=== PATIENT | female | born 1995 | race Caucasian/White ===

== ENCOUNTER 2023-07-02 10:06 | Emergency (ER) | payer OTHER, SELFPAY ==
[2023-07-02] VITALS (33 sets, daily range): BP systolic 110–156; BP diastolic 81–104; PULSE 92–102; RESP 10–30; TEMP 35.6–36.3; O2SAT 100; BMI 19.8
--- NOTE | 2023-07-02 10:25 | ECG_ITS ---
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
[2023-07-02 10:29] LABS: Glucometer 446 mg/dL (74-106)
--- NOTE | 2023-07-02 10:30 | ED_ITS ---
HPI - General Adult General Chief complaint: Nausea/Vomiting/Diarrhea Stated complaint: HIGH BLOOD SUGAR/ CHEST PAIN Time Seen by Provider: 07/02/23 10:25 Source: patient and other Source information: EMS Mode of arrival: ambulance Limitations: no limitations History of Present Illness HPI narrative: Patient is a 28-year-old female who is presenting to the Emergency Room by EMS in most likely DKA. Patient is a type I diabetic. Last time patient was in DKA was in May. Patient is a insulin-dependent diabetic, type I. Patient PCP is Dr. Luna. Patient's been having 3 days of nausea and vomiting. Patient ran out of her insulin for no known reason. Patient has not talked her PCP yesterday or today. Patient has been having clear emesis this morning. Patient states that she is not . Patient has no chest pain or shortness of breath, no abdominal pain, patient is asking for ice chips. Patient denies any sick contacts. Patient is only speaking and one or 2 sentences at a time. . All systems are negative except as noted/marked. All systems reviewed and otherwise negative. . Nurses note and vital signs reviewed and patient is not hypoxic. General: The patient appears Moderate distress, patient looks sick, patient looks very dehydrated, probable DKA. Patient is resting uncomfortably on cart. Patient is Slightly toxic, mild lethargic, not listless Skin: Warm, dry, no pallor noted. There is no rash noted. No petechiae, purpura. Patient has multiple areas of psoriasis, chronic; no secondary signs of infection. Head: Normocephalic, atraumatic Eye: Normal conjunctiva, no drainage, EOMI. PERRL Ears, Nose, Mouth, and Throat: oral mucosa is Very dry. Nares patent. Mouth without vesicles. Poor dentition, no secondary signs of infection. Cardiovascular: Tachycardic Regular Rate and Rhythm, no murmur, gallop, rub Respiratory: Patient has increased respiratory rate with Kussmaul breathing; no accessory muscle use, lungs are clear to auscultation, no wheezing, rales or rhonchi. Back: non-tender, no CVA tenderness bilaterally to percussion. No CT LS midline pain GI: soft, no tenderness to palpation, no masses appreciated. No rebound, guarding, or rigidity noted. No flank pain bilateral, No distention Musculoskeletal: Patient has full range of motion of all of the extremities, no motor, sensory, or focal neurological deficits Neurological: A&O x3, normal speech Psychiatric: Cooperative Related Data Allergies Allergy/AdvReac Type Severity Reaction Status Date / Time Penicillins Allergy Verified 07/02/23 10:22 [facility] Social History Smoking status: Former smoker Exam Constitutional Vital Signs, click to edit/add: Last Vital Signs Temp 97.3 F L 07/02/23 14:39 Pulse 99 H 07/02/23 14:50 Resp 14 07/02/23 14:50 BP 110/83 07/02/23 14:30 Pulse Ox 100 07/02/23 12:40 O2 Del Method Room Air 07/02/23 10:12 Course Vital Signs Vital signs: Vital Signs Pulse Rate 98 H 07/02/23 10:08 Respiratory Rate 18 07/02/23 10:08 Temperature 97.3 F L 07/02/23 14:39 Pulse Rate 99 H 07/02/23 14:50 Respiratory Rate 14 07/02/23 14:50 Blood Pressure 110/83 07/02/23 14:30 Pulse Oximetry 100 07/02/23 12:40 Oxygen Delivery Method Room Air 07/02/23 10:12 Medical Decision Making MDM Narrative Medical decision making narrative: 1030 DKA protocol is are in place. Patient does have one IV, were giving Zofran and IV fluids. We'll be attempting 2nd IV. Labwork is in place. Patient is requesting ice chips and was given a few. 1130 1300 patient is sick. Patient is elderly with blood cells of 15, she is a venous gas pH of 6.9, CO2 is 17. Patient's initial blood sugar was 461. Patient's CO2 level Was 6.Initial troponin was 3532, repeat 3259. Patient had a small IV started initially, 1 L of IV fluid was established. We are able to get a 2nd IV into the patient, 2 L were started. Patient was initially given Zofran IV. Patient was asking for ice chips. Patient urinated the 1st time, she missed the hack collection on the bedside commode. Patient was given a 3rd liter of IV fluids along with potassium drip. Patient's potassium was 3.9. Patient remained on IV, O2, recorder gravity prospecting and pulse ox entire time. Patient was having Accu-Cheks done every hour. Patient was started on insulin drip at 3 units per hour. The 2nd are was increased to 3.5 units per hour. The 3rd hour the insulin was decreased back to 3 units per hour. Patient is currently remaining on a normal saline drip. Patient had a Return of nausea after the 1st dose of IV Zofran, patient was given a 2nd dose of Zofran and Compazine. 1450 patient has had 3 L of normal saline infused. Patient still has several hours of the potassium normal saline drip going. Patient will be started on a D5 half-normal saline drip for maintenance fluids to help with DKA management. Patient is going to be picked up at approximately 1600. Patient had methadone in her urine. 1500 [facility] staff only has 2 IV problems. Patient is currently on a insulin drip along with a potassium drip as well. We will check patient's blood sugar now, adjust insulin drip as needed and not start the D5 half-normal saline but will increase the insulin drip to make sure the patient's sugar does not drop too quickly. Potassium still has approximately 300 mL to infuse. Insulin drip will be Decreased to 2 units, repeat blood sugar check was 270. 1510 We are able to slowly infuse D5 half-normal saline with a regular on the IV tubing which produced the patient does not significant drop the glucose level. EMS staff can still maintain Their 2 IV drips with a very slow drip effu sparkle to gravity At approximately 60 mL per hour. Critical care time 80 minutes exclusive from separate billable procedures that were performed. The following was considered in the determination of critical care but not limited to the level of medical decision making, intensive cardiac and/or respiratory monitoring, frequent vital sign monitoring, evaluation of laboratory studies, evaluation of radiographic studies, oxygen monitoring, and constant monitoring and speaking to family at bedside Lab Data Lab results reviewed: Yes I reviewed the patient's lab results Labs: Lab Results 07/02/23 07/02/23 07/02/23 Range/Units 10:15 10:26 10:38 WBC 15.7 H (4.0-11.0) 10^3/uL RBC 5.17 (4.20-5.40) 10^6/uL Hgb 13.2 (12.0-16.0) g/dL Hct 43.7 (36.0-48.0) % MCV 84.5 (81.0-99.0) fL MCH 25.5 L (26.7-34.0) pg MCHC 30.2 (29.9-35.2) g/dL RDW 13.5 (11.0-15.0) % Plt Count 344 (150-450) 10^3/uL MPV 9.8 (9.5-13.5) fL Neut % (Auto) 93.0 H (43.0-75.0) % Lymph % (Auto) 4.0 L (20.5-60.0) % [place] % (Auto) 1.6 L (1.7-12.0) % Eos % (Auto) 0.4 L (0.9-7.0) % Baso % (Auto) 0.4 (0.2-2.0) % Neut # (Auto) 14.6 H (1.4-6.5) 10^3/uL Lymph # (Auto) 0.6 L (1.2-3.8) 10^3/uL [place] # (Auto) 0.3 (0.3-0.8) 10^3/uL Eos # (Auto) 0.1 (0.0-0.7) 10^3/uL Baso # (Auto) 0.1 (0.0-0.1) 10^3/uL Abs Immat Gran (auto) 0.10 H (0.00-0.03) 10^3/uL Imm/Tot Granulo (auto) 0.6 H (0.0-0.5) % PT 9.4 (9.0-11.6) sec INR <0.93 VBG pH 6.911 L (7.330-7.430) VBG pCO2 17.7 L (40.0-52.0) mmHg Sodium 134 L (136-145) mmol/L Potassium 3.9 (3.5-5.1) mmol/L Chloride 98 (98-107) mmol/L Carbon Dioxide 6.2 L (21.0-32.0) mmol/L Anion Gap 33.7 BUN 16.0 (7.0-18.0) mg/dL Creatinine 1.03 H (0.55-1.02) mg/dL Est GFR ( Amer) >60 (>=60) Est GFR (Non-Af Amer) >60 (>=60) BUN/Creatinine Ratio 15.5 Glucose 461 H (74-106) mg/dL Lactate 1.2 (0.4-2.0) mmol/L Calcium 8.2 L (8.5-10.1) mg/dL Magnesium 2.0 (1.8-2.4) mg/dL Total Bilirubin 0.4 (0.2-1.0) mg/dL AST 28 (15-37) U/L ALT 29 (14-59) U/L Alkaline Phosphatase 115 (46-116) U/L Troponin I High Sens 3532.8 H* (4.0-51.3) pg/mL NT-Pro-B Natriuret Pep 899.0 H* (<=450.0) pg/mL Total Protein 8.0 (6.4-8.2) g/dL Albumin 3.8 (3.4-5.0) g/dL Globulin 4.2 g/dL Albumin/Globulin Ratio 0.9 Lipase 15.0 L (16.0-77.0) U/L Urine Color (YELLOW) Urine Clarity (CLEAR) Urine pH (5.0-9.0) Ur Specific [place] (1.005-1.025) Urine Protein (NEG/TRACE) mg/dL Urine Glucose (UA) (NEGATIVE) mg/dL Urine Ketones (NEGATIVE) mg/dL Urine Occult Blood (NEGATIVE) Urine Nitrite (NEGATIVE) Urine Bilirubin (NEGATIVE) Urine Urobilinogen (0.2-1.0) EU/dL Ur Leukocyte Esterase (NEGATIVE) Urine RBC (0-2) #/HPF Urine WBC (NONE SEEN) #/HPF Ur Squamous Epith Cells (NONE/RARE) #/LPF Urine Crystals (None Seen) #/HPF Urine Bacteria (NONE SEEN) #/HPF Urine Casts (NONE SEEN) #/LPF Hyaline Casts Urine Mucus (NONE SEEN) Urine Yeast (NONE SEEN) Ur Culture Indicated? Urine HCG, Qual (NEGATIVE) Urine Opiates Screen (NEGATIVE) Ur Buprenorphine Scrn (NEGATIVE) Ur Oxycodone Screen (NEGATIVE) Urine Methadone Screen (NEGATIVE) Ur Barbiturates Screen (NEGATIVE) U Tricyclic Antidepress (NEGATIVE) Ur Phencyclidine Scrn (NEGATIVE) Ur Amphetamines Screen (NEGATIVE) U Methamphetamines Scrn (NEGATIVE) U Benzodiazepines Scrn (NEGATIVE) Urine Cocaine Screen (NEGATIVE) U Cannabinoids Screen (NEGATIVE) Acetone, Qual Small A (NEGATIVE) SARS-CoV-2 (PCR) (NEGATIVE) Influenza Type A Ag Influenza Type B Ag POC Glucose 446 H (74-106) mg/dL 07/02/23 07/02/23 07/02/23 Range/Units 11:57 11:59 12:46 WBC (4.0-11.0) 10^3/uL RBC (4.20-5.40) 10^6/uL Hgb (12.0-16.0) g/dL Hct (36.0-48.0) % MCV (81.0-99.0) fL MCH (26.7-34.0) pg MCHC (29.9-35.2) g/dL RDW (11.0-15.0) % Plt Count (150-450) 10^3/uL MPV (9.5-13.5) fL Neut % (Auto) (43.0-75.0) % Lymph % (Auto) (20.5-60.0) % [place] % (Auto) (1.7-12.0) % Eos % (Auto) (0.9-7.0) % Baso % (Auto) (0.2-2.0) % Neut # (Auto) (1.4-6.5) 10^3/uL Lymph # (Auto) (1.2-3.8) 10^3/uL [place] # (Auto) (0.3-0.8) 10^3/uL Eos # (Auto) (0.0-0.7) 10^3/uL Baso # (Auto) (0.0-0.1) 10^3/uL Abs Immat Gran (auto) (0.00-0.03) 10^3/uL Imm/Tot Granulo (auto) (0.0-0.5) % PT (9.0-11.6) sec INR VBG pH (7.330-7.430) VBG pCO2 (40.0-52.0) mmHg Sodium (136-145) mmol/L Potassium (3.5-5.1) mmol/L Chloride (98-107) mmol/L Carbon Dioxide (21.0-32.0) mmol/L Anion Gap BUN (7.0-18.0) mg/dL Creatinine (0.55-1.02) mg/dL Est GFR ( Amer) (>=60) Est GFR (Non-Af Amer) (>=60) BUN/Creatinine Ratio Glucose (74-106) mg/dL Lactate (0.4-2.0) mmol/L Calcium (8.5-10.1) mg/dL Magnesium (1.8-2.4) mg/dL Total Bilirubin (0.2-1.0) mg/dL AST (15-37) U/L ALT (14-59) U/L Alkaline Phosphatase (46-116) U/L Troponin I High Sens (4.0-51.3) pg/mL NT-Pro-B Natriuret Pep (<=450.0) pg/mL Total Protein (6.4-8.2) g/dL Albumin (3.4-5.0) g/dL Globulin g/dL Albumin/Globulin Ratio Lipase (16.0-77.0) U/L Urine Color Lt. yellow (YELLOW) Urine Clarity Clear (CLEAR) Urine pH 5.5 (5.0-9.0) Ur Specific [place] 1.025 (1.005-1.025) Urine Protein 30 A (NEG/TRACE) mg/dL Urine Glucose (UA) >=1000 A (NEGATIVE) mg/dL Urine Ketones >=80 A (NEGATIVE) mg/dL Urine Occult Blood Moderate A (NEGATIVE) Urine Nitrite Negative (NEGATIVE) Urine Bilirubin Negative (NEGATIVE) Urine Urobilinogen 0.2 (0.2-1.0) EU/dL Ur Leukocyte Esterase Negative (NEGATIVE) Urine RBC 2-5 A (0-2) #/HPF Urine WBC 0-2 A (NONE SEEN) #/HPF Ur Squamous Epith Cells Few A (NONE/RARE) #/LPF Urine Crystals None seen (None Seen) #/HPF Urine Bacteria Trace A (NONE SEEN) #/HPF Urine Casts Seen A (NONE SEEN) #/LPF Hyaline Casts Rare Urine Mucus None seen (NONE SEEN) Urine Yeast Seen A (NONE SEEN) Ur Culture Indicated? No Urine HCG, Qual Negative (NEGATIVE) Urine Opiates Screen Negative (NEGATIVE) Ur Buprenorphine Scrn Negative (NEGATIVE) Ur Oxycodone Screen Negative (NEGATIVE) Urine Methadone Screen Positive A (NEGATIVE) Ur Barbiturates Screen Negative (NEGATIVE) U Tricyclic Antidepress Negative (NEGATIVE) Ur Phencyclidine Scrn Negative (NEGATIVE) Ur Amphetamines Screen Negative (NEGATIVE) U Methamphetamines Scrn Negative (NEGATIVE) U Benzodiazepines Scrn Negative (NEGATIVE) Urine Cocaine Screen Negative (NEGATIVE) U Cannabinoids Screen Negative (NEGATIVE) Acetone, Qual (NEGATIVE) SARS-CoV-2 (PCR) Negative (NEGATIVE) Influenza Type A Ag Negative Influenza Type B Ag Negative POC Glucose 357 H (74-106) mg/dL 07/02/23 07/02/23 07/02/23 Range/Units 13:31 13:32 14:31 WBC (4.0-11.0) 10^3/uL RBC (4.20-5.40) 10^6/uL Hgb (12.0-16.0) g/dL Hct (36.0-48.0) % MCV (81.0-99.0) fL MCH (26.7-34.0) pg MCHC (29.9-35.2) g/dL RDW (11.0-15.0) % Plt Count (150-450) 10^3/uL MPV (9.5-13.5) fL Neut % (Auto) (43.0-75.0) % Lymph % (Auto) (20.5-60.0) % [place] % (Auto) (1.7-12.0) % Eos % (Auto) (0.9-7.0) % Baso % (Auto) (0.2-2.0) % Neut # (Auto) (1.4-6.5) 10^3/uL Lymph # (Auto) (1.2-3.8) 10^3/uL [place] # (Auto) (0.3-0.8) 10^3/uL Eos # (Auto) (0.0-0.7) 10^3/uL Baso # (Auto) (0.0-0.1) 10^3/uL Abs Immat Gran (auto) (0.00-0.03) 10^3/uL Imm/Tot Granulo (auto) (0.0-0.5) % PT (9.0-11.6) sec INR VBG pH (7.330-7.430) VBG pCO2 (40.0-52.0) mmHg Sodium 139 (136-145) mmol/L Potassium 3.9 (3.5-5.1) mmol/L Chloride 108 H (98-107) mmol/L Carbon Dioxide <5.0 L (21.0-32.0) mmol/L Anion Gap 29.9 BUN 18.0 (7.0-18.0) mg/dL Creatinine 0.83 (0.55-1.02) mg/dL Est GFR ( Amer) >60 (>=60) Est GFR (Non-Af Amer) >60 (>=60) BUN/Creatinine Ratio 21.7 Glucose 381 H (74-106) mg/dL Lactate (0.4-2.0) mmol/L Calcium 7.0 L (8.5-10.1) mg/dL Magnesium (1.8-2.4) mg/dL Total Bilirubin (0.2-1.0) mg/dL AST (15-37) U/L ALT (14-59) U/L Alkaline Phosphatase (46-116) U/L Troponin I High Sens 3259.3 H* (4.0-51.3) pg/mL NT-Pro-B Natriuret Pep (<=450.0) pg/mL Total Protein (6.4-8.2) g/dL Albumin (3.4-5.0) g/dL Globulin g/dL Albumin/Globulin Ratio Lipase (16.0-77.0) U/L Urine Color (YELLOW) Urine Clarity (CLEAR) Urine pH (5.0-9.0) Ur Specific [place] (1.005-1.025) Urine Protein (NEG/TRACE) mg/dL Urine Glucose (UA) (NEGATIVE) mg/dL Urine Ketones (NEGATIVE) mg/dL Urine Occult Blood (NEGATIVE) Urine Nitrite (NEGATIVE) Urine Bilirubin (NEGATIVE) Urine Urobilinogen (0.2-1.0) EU/dL Ur Leukocyte Esterase (NEGATIVE) Urine RBC (0-2) #/HPF Urine WBC (NONE SEEN) #/HPF Ur Squamous Epith Cells (NONE/RARE) #/LPF Urine Crystals (None Seen) #/HPF Urine Bacteria (NONE SEEN) #/HPF Urine Casts (NONE SEEN) #/LPF Hyaline Casts Urine Mucus (NONE SEEN) Urine Yeast (NONE SEEN) Ur Culture Indicated? Urine HCG, Qual (NEGATIVE) Urine Opiates Screen (NEGATIVE) Ur Buprenorphine Scrn (NEGATIVE) Ur Oxycodone Screen (NEGATIVE) Urine Methadone Screen (NEGATIVE) Ur Barbiturates Screen (NEGATIVE) U Tricyclic Antidepress (NEGATIVE) Ur Phencyclidine Scrn (NEGATIVE) Ur Amphetamines Screen (NEGATIVE) U Methamphetamines Scrn (NEGATIVE) U Benzodiazepines Scrn (NEGATIVE) Urine Cocaine Screen (NEGATIVE) U Cannabinoids Screen (NEGATIVE) Acetone, Qual (NEGATIVE) SARS-CoV-2 (PCR) (NEGATIVE) Influenza Type A Ag Influenza Type B Ag POC Glucose 339 H 297 H (74-106) mg/dL Imaging Data Chest x-ray: Radiologist's impression: ITS Impressions Chest X-Ray 07/02/23 11:08 IMPRESSION: Normal examination. Electronically authenticated by: MATTHEW MILLER Date: 07/02/2023 12:00 ECG Data Attestation: I personally reviewed and interpreted this ECG as follows: (EKG interpretation. Normal sinus rhythm at 95 beats a minute. Normal axis deviation. Artifact noted. T-wave inversion in the anterior leads, QTc of 439. One millimeter of ST depression in V4, V5, this be compared to old EKG is available. EKG reading right and left atrial enlargement.) Interpretation: Old EKG is compared to 06/14/2020, patient has noted T-wave inversion in the anterolateral leads as well, no acute ST depression noted, similar changes to today's EKG. Discharge Plan Discharge Chief Complaint: Nausea/Vomiting/Diarrhea Clinical Impression: Medical non-compliance, Elevated troponin, DKA, type 1, Nausea & vomiting Patient Disposition: [facility] Discharge location: Dr LUCIANO Guerra
[2023-07-02 10:52] LABS: PCO2 VBG 17.7 mmHg (40.0-52.0); pH VBG 6.911 (7.330-7.430)
[2023-07-02 10:53] LABS: Basophils Absolute Auto 0.1 10^3/uL (0.0-0.1); Basophils Percent Auto 0.4 % (0.2-2.0); Eosinophils Absolute Auto 0.1 10^3/uL (0.0-0.7); Eosinophils Percent Auto 0.4 % (0.9-7.0); Hematocrit 43.7 % (36.0-48.0); Hemoglobin 13.2 g/dL (12.0-16.0); Immature Granulocytes Pct Auto 0.6 % (0.0-0.5); Lymphocytes Absolute Auto 0.6 10^3/uL (1.2-3.8); Mean Corpuscular HGB Conc 30.2 g/dL (29.9-35.2); Mean Corpuscular Hemoglobin 25.5 pg (26.7-34.0); Mean Corpuscular Volume 84.5 fL (81.0-99.0); Mean Platelet Volume 9.8 fL (9.5-13.5); Monocytes Absolute Auto 0.3 10^3/uL (0.3-0.8); Monocytes Percent Auto 1.6 % (1.7-12.0); Neutrophils Absolute Auto 14.6 10^3/uL (1.4-6.5); Platelet Count 344 10^3/uL (150-450); Red Blood Count 5.17 10^6/uL (4.20-5.40); Red Cell Distribution Width 13.5 % (11.0-15.0); White Blood Count 15.7 10^3/uL (4.0-11.0)
[2023-07-02 11:03] LABS: Lactate/Lactic Acid 1.2 mmol/L (0.4-2.0)
[2023-07-02 11:04] LABS: Alanine Aminotransferase 29 U/L (14-59); Albumin Globulin Ratio 0.9; Albumin Level 3.8 g/dL (3.4-5.0); Alkaline Phosphatase 115 U/L (46-116); Anion Gap 33.7; Aspartate Amino Transferase 28 U/L (15-37); BUN Creatinine Ratio 15.5; Bilirubin Total 0.4 mg/dL (0.2-1.0); Calcium 8.2 mg/dL (8.5-10.1); Carbon Dioxide 6.2 mmol/L (21.0-32.0); Chloride 98 mmol/L (98-107); Estimated GFR (African America >60 (>=60); Estimated GFR (Non-African Ame >60 (>=60); Globulin 4.2 g/dL; Glucose 461 mg/dL (74-106); Potassium 3.9 mmol/L (3.5-5.1); Prothrombin Time 9.4 sec (9.0-11.6); Sodium 134 mmol/L (136-145)
[2023-07-02 11:07] LABS: Acetone SMALL (NEGATIVE); Troponin I High Sensitivity 3532.8 pg/mL (4.0-51.3)
--- NOTE | 2023-07-02 11:08 | XR_ITS ---
[address] [address] Patient Name: RUDDY CORDOVA MRN: [id number] date: 1995 Sex: F Assigned Patient Location: ER Current Patient Location: ER Accession/Order Number: [id number] Exam Date: 07/02/2023 11:00 Report Date: 07/02/2023 12:00 At the request of: MARTIN DAMON Procedure: XR chest 1V EXAMINATION: XR chest 1V HISTORY: dka COMPARISON: 08/25/2022 TECHNIQUE: AP portable] FINDINGS: LUNGS: No significant pulmonary parenchymal abnormalities. VASCULATURE: No increased pulmonary vasculature. PLEURA: No pneumothorax, effusion, or pleural thickening. CARDIAC: No cardiomegaly or cardiac silhouette abnormality. MEDIASTINUM: No visible mass or adenopathy. BONES: No fracture or visible bone lesion. OTHER: Negative. XR/XR chest 1V IMPRESSION: Normal examination. Electronically authenticated by: MATTHEW MILLER Date: 07/02/2023 12:00
[2023-07-02] MEDS: ONDANSETRON PF 4 MG/2 ML VIAL IV ×2 (11:09→13:21)
[2023-07-02] MEDS: 0.9 % SODIUM CHLORIDE 1,000 ML 999 ML IV (11:09)
[2023-07-02] MEDS: 0.9 % SODIUM CHLORIDE 1,000 ML 1000 ML IV ×2 (11:09→12:32)
[2023-07-02 11:56] LABS: INR <0.93
[2023-07-02 12:00] LABS: Glucometer 357 mg/dL (74-106)
[2023-07-02] MEDS: POTASSIUM CHLORIDE IN 0.9%NACL 1,000 ML 250 MEQ IV (12:17)
[2023-07-02] MEDS: INSULIN REGULAR IN 0.9 % NACL 100 UNIT/100 ML PLAST..BAG IV (12:18)
[2023-07-02 12:29] LABS: Influenza Virus A Antigen Negative; Influenza Virus B Antigen Negative; Internal Control Within Normal Limits; SARS-CoV-2 Ag NEGATIVE (NEGATIVE)
[2023-07-02 13:07] LABS: Bilirubin Urine NEGATIVE (NEGATIVE); Blood Urine MODERATE (NEGATIVE); Clarity Urine CLEAR (CLEAR); Color Urine LT. YELLOW (YELLOW); Glucose Urine UA >=1000 mg/dL (NEGATIVE); Ketones Urine >=80 mg/dL (NEGATIVE); Leukocyte Esterase Urine NEGATIVE (NEGATIVE); Nitrite Urine NEGATIVE (NEGATIVE); Protein Urine 30 mg/dL (NEG/TRACE); Specific Gravity Urine 1.025 (1.005-1.025); Urobilinogen Urine 0.2 EU/dL (0.2-1.0); pH Urine 5.5 (5.0-9.0)
[2023-07-02 13:08] LABS: HCG Qualitative Urine* NEGATIVE (NEGATIVE)
[2023-07-02 13:20] LABS: Amphetamine Screen Urine NEGATIVE (NEGATIVE); Benzodiazepines Screen Urine NEGATIVE (NEGATIVE); Cannabinoid Screen Urine NEGATIVE (NEGATIVE); Cocaine Screen Urine NEGATIVE (NEGATIVE); Methamphetamines Screen Urine NEGATIVE (NEGATIVE); Opiate Screen Urine NEGATIVE (NEGATIVE); Phencyclidine Screen Urine NEGATIVE (NEGATIVE); Tricyclic Antidepressant Urine NEGATIVE (NEGATIVE)
[2023-07-02 13:21] LABS: Barbiturates Screen Urine NEGATIVE (NEGATIVE); Buprenorphine Screen Urine NEGATIVE (NEGATIVE); Methadone Screen Urine POSITIVE (NEGATIVE); Oxycodone Screen Urine NEGATIVE (NEGATIVE)
[2023-07-02] MEDS: PROCHLORPERAZINE 10 MG/2 ML VIAL IV (13:21)
[2023-07-02 13:26] LABS: Bacteria Urine TRACE #/HPF (NONE SEEN); Mucus Urine NONE SEEN (NONE SEEN); WBC Urine 0-2 #/HPF (NONE SEEN)
[2023-07-02 13:27] LABS: Cast Seen? SEEN #/LPF (NONE SEEN); Crystals Seen? None Seen #/HPF (None Seen); Squamous Epithelial Cell Urine FEW #/LPF (NONE/RARE)
[2023-07-02 13:28] LABS: Hyaline Casts Urine RARE; Urine Culture Indicated NO
[2023-07-02 13:33] LABS: Glucometer 339 mg/dL (74-106)
[2023-07-02 13:58] LABS: BUN Creatinine Ratio 21.7; Carbon Dioxide <5.0 mmol/L (21.0-32.0); Chloride 108 mmol/L (98-107); Estimated GFR (African America >60 (>=60); Estimated GFR (Non-African Ame >60 (>=60); Glucose 381 mg/dL (74-106); Potassium 3.9 mmol/L (3.5-5.1); Sodium 139 mmol/L (136-145)
[2023-07-02 14:02] LABS: Anion Gap 29.9
--- NOTE | 2023-07-02 14:08 | PC.NURSE ---
pt missed hat for 1 urine, 2nd urine measured at 300ml. 3rd urine unable to measure due to stool mixed with urine.
[2023-07-02 14:33] LABS: Glucometer 297 mg/dL (74-106)
[2023-07-02 15:05] LABS: Glucometer 270 mg/dL (74-106)
[2023-07-02 15:11] LABS: SARS-CoV-2 NAA NOT DETECTED (NOT DETECTE)
[2023-07-02] MEDS: DEXTROSE 5 %-0.45 % SOD CHLORD 1,000 ML 60 ML IV (15:11)
== END 2023-07-02 15:36 | disposition short-term general hospital (02) ==
PROVIDERS: Emergency Provider Emergency Medicine; PCP Family Medicine
DX: E10.10 Type 1 diabetes mellitus with ketoacidosis without coma (principal); R11.2 Nausea with vomiting, unspecified; R79.89 Other specified abnormal findings of blood chemistry; Z91.199 Patient's noncompliance with other medical treatment and regimen due to unspecified reason; Z79.4 Long term (current) use of insulin; Z87.891 Personal history of nicotine dependence; Z20.822 Contact with and (suspected) exposure to COVID-19; R82.5 Elevated urine levels of drugs, medicaments and biological substances
CPT/HCPCS: 36415; 71045; 80048; 80053; 80307; 81001; 82009; 82800; 82948; 82950; 83605; 83690; 83735; 83880; 84484; 84703; 85025; 85610; 87635; 87804; 87811; 93005; 96361; 96374; 96375; 96376; 99285; J0780; J2405

== ENCOUNTER 2023-07-13 15:27 | Observation (INO) | payer OTHER, SELFPAY ==
[2023-07-13] VITALS (13 sets, daily range): BP systolic 136–151; BP diastolic 83–105; PULSE 87–108; RESP 14–24; TEMP 36.3; O2SAT 100; BMI 19.8; BMI 19.7
--- NOTE | 2023-07-13 15:44 | ECG_ITS ---
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
--- OUTSIDE RECORDS SUMMARY | 2023-07-13 15:48 | XMS_ITS | CCD ---
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 Name Role Phone PHYSICIAN, DEFAULT Unavailable Unavailable PHYSICIAN, DEFAULT Unavailable Unavailable No, Physician Primary Care Provider Unavailabl e NO, PHYSICIAN Primary Care Unavailable SYSTEM, PROVIDER NOT IN Referring Unavaila CAM Johnson Attending Neida Rekha Bundy Admitting Unavailable Tamiko Álvarez Consulting Unavailable ARCADIO IGLESIAS Primary Care Unavailable GIUSEPPE CHRISTIE Admitting Unavailable GIUSEPPE CHRISTIE Attending Unavailable GIUSEPPE CHRISTIE Consulting Unavailable Kalin Bruner Consulting Unavailable Arcadio Iglesias Primary Care Provider KELSIE, DR ARCADIO Ballesteros Attending Unavailable KELSIE, DR ARCADIO Ballesteros Admitting Unavailable HOY ., DR CAMPBELL Consulting Unavailable KELSIE, DR ARCADIO Ballesteros Primary Care Unavailable KELSIE, DR ARCADIO Ballesteros Consulting Unavailable FABI FIGUEROA Consulting Unavailable ROSA M MENDEZ Consulting Unavailable KELSIE, DR ARCADIO Ballesteros Primary Care Unavailable FANADIA, H Admitting Unavailable TRI, H Attending Unavailable KELSIE, DR ARCADIO Ballesteros Primary Care Unavailable KELSIE, DR ARCADIO Ballesteros Consulting Unavailable KELSIE, DR ARCADIO Ballesteros Attending Unavailable KELSIE, DR ARCADIO Ballesteros Admitting Unavailable MARTIN DAVIS Consulting Unavailable ARCADIO IGLESIAS Primary Care Unavailabl e AVASTHI, EDI Admitting Unavailable LINN JOHNSON Referring Unavailab RM Shetty Attending Unavailable RAD QUINN Consulting Unavailable NADERER, ARCADIO A Primary Care Unavailable Macy Armenta Admitting Unavailable Macy Armenta Attending Unavailable NADMARIA CARCADIO Primary Care Unavailable Omley, Linn H Admitting Unavailable Omlang, Linn H Attending Unavailable Alex, Linn H Attending Unavailable KELSIE, ARCADIO Ballesteros Primary Care Unavailable Omley, Linn H Admitting Unavailable KELSIE, ARCADIO Ballesteros Primary Care Unavailable Maxi Payne Admitting Unavailable Maxi Payne Attending Unavailable Arcadio Iglesias MD Primary Care Provider [phone] LETTY YEE Admitting Unavailable LETTY YEE Attending Unavailable PHYSICIAN, UNKNOWN Referring Unavailable KELSIE, ARCADIO Primary Care Unavailable MACY DREW Consulting Unavailable ASH MUNGUIA Consulting Unavailable BRYCE GAINES Consulting Unavailable ARCADIO IGLESIAS Primary Care Unavailable MATTHEW MICHAEL Attending Unavailable CHAS DARDEN Referring Unavailable KELSIE, ARCADIO Primary Care Unavailable KELSIE, ARCADIO Referring Unavailable NADMARIA C, ARCADIO Primary Care Unavailable Allergies Allergy Classification Reported Allergen(s) Allergy Type Date of Onset Reaction(s) Facility (9 sources) Penicillins; Translations: [PENICILLINS] Propensity to adverse reactions to drug 3 Anaphylaxis [facility] (6 sources) Shellfish; Translations: [SHELLFISH DERIVED] Propensity to adverse reactions to drug 0 [facility] (3 sources) Penicillin; Translations: [penicillin] Drug Allergy [facility] (4 sources) Shellfish; Translations: [shellfish] Drug allergy (disorder) 4 [facility] (1 source) Shellfish-Derive d Products Propensity to adverse reactions to drug 1 [place] (3 sources) Shellfish; Translations: [SHELLFISH CONTAINING PRODUCTS] Propensity to adverse reactions to drug 7 Anaphylaxis [facility] Medications Current Medications Medication Drug Class(es) Dates Sig (Normalized) Sig (Original) [id number] 200 actuat albuterol 0.09 mg/actuat metered dose inhaler (2 sources) beta2-Adrenergic Agonist take 2 puff(s) by inhalation every six hours as needed for wheezing albuterol (PROVENTIL HFA;VENTOLIN HFA) 90 mcg/actuation inhaler Inhale 2 puffs every 6 (six) hours as needed for wheezing. 0 Active albuterol 90 mcg/actuation inhaler (2 sources) take 2 puff(s) by inhalation every four hours as needed for wheezing albuterol 90 mcg/actuation inhaler Inhale 2 puffs every 4 (four) hours as needed for wheezing . 0 Active amphetamine aspartate 7.5 mg / amphetamine sulfate 7.5 mg / dextroamphetamine saccharate 7.5 mg / dextroamphetamine sulfate 7.5 mg oral tablet (10 sources) Central Nervous System Stimulant take 1 tablet by mouth in the morning dextroamphetamine -amphetamine (ADDERALL) 30 mg tablet Take 1 tablet (30 mg total) by mouth in the morning. 0 Active take 1 capsule by mo [facility] once daily in the morning amphetamine-dextroamphetamine XR (ADDERA LL XR) 30 mg 24 hr capsule Indications: attention-deficit hyperactivity disorder Take 1 capsule (30 mg total) by mouth every morning Indications: attention deficit disorder with hyperactivity. 0 Active take 1 tablet by mitchell once daily dextroamphetamine-amphetamine (ADDERALL) 20 mg tablet Take 20 mg by mouth daily . 0 Active carisoprodol 350 mg oral tablet (2 sources) Muscle Relaxant take 1 tablet by mouth four times daily as needed for muscle spasms carisoprodoL (SOMA) 350 mg tablet Indications: muscle spasm Take 1 tablet (350 mg total) by mouth 4 (four) times a day as needed for muscle spasms Indications: muscle spasm. 0 Active gabapentin 800 mg oral tablet (2 sources) Anti-epileptic Agent take 1 tablet by mouth three times daily gabapentin (NEURONTIN) 800 mg tablet Take 1 tablet (800 mg total) by mouth 3 (three) times a day. 0 Active hydrALAZINE hydrochloride 25 mg oral tablet (2 sources) Arteriolar Vasodilator Start: hydrALAZINE (APRESOLINE) 25 mg tablet Take 2 tablets (50 mg total) by mouth every 12 (twelve) hours. 30 tablet 0 06/18/2022 Active sensor 3 ml insulin glargine 100 unt/ml pen injector (12 sources) Insulin Analog Start: End: inject 20 [IU] by subcutaneous injection in the morning insulin glargine (LANTUS, SEMGLEE) 100 unit/mL (3 mL) insulin pen Inject 20 Units under the skin in the morning and 20 Units before bedtime. 15 mL 12 07/04/2023 Active Start: 07-03-2023 End: 07-03-2023 insulin glargine (LANTUS, SEMGLEE) injection pen 10 Units Start: 07-31-2020 End: 08-01-2020 insulin glargine (LANTUS) injection vial 20 Units Start: 06-10-2020 End: 07-10-2020 inject 20 [IU] by subcutaneous injection twice daily insulin glargine (LANTUS) 100 unit/mL injection Inject 20 (twenty) Units under the skin 2 (two) times a day . 12 mL 0 06/10/2020 Active Start: 06-09-2020 End: 06-10-2020 insulin glargine (LANTUS) injection 20 Units Start: 06-08-2020 End: 06-09-2020 insulin glargine (LANTUS) injection 15 Units insulin lispro 100 unt/ml injectable solution (10 sources) Insulin Analog Start: 08-01-2020 insulin lispro (HUMALOG) injection vial 3 Units Start: 06-08-2020 End: 07-10-2020 insulin lispro (HUMALOG) inj ection vial 0-6 Units Start: 07-09-2018 insulin lispro (HumaLOG) 100 unit/mL injection Take 2 units per 15 grams of carbohydrates up to 10 units per 75 grams of carbohydrates within 15 minutes of finishing meals together with correction insulin when needed. 1 Box 12 07/09/2018 Active insulin lispro (HumaLOG) injection 2-8 Units (1 source) Start: 07-04-2023 End: 07-04-2023 insulin lispro (HumaLOG) injection 2-8 Units 100 ml magnesium sulfate 10 mg/ml injection (1 source) Start: 07-29-2020 magnesium sulf ate 1000 mg in dextrose 5% 100 mL IVPB melatonin 3 mg oral tablet (1 source) Start: 08-01-2020 melatonin tabl et 3 mg sertraline 100 mg oral tablet (2 sources) Serotonin Reuptake Inhibitor take 1 tablet by mouth once daily sertraline (ZOLOFT) 100 MG tablet Take 100 mg by mouth daily . 0 Active tiZANidine 4 mg oral tablet (2 sources) Central alpha-2 Adrenergic Agonist take 1 tablet by mouth every eight hours as needed tiZANidine (ZANAFLEX) 4 mg tablet Take 1 tablet (4 mg total) by mouth every 8 (eight) hours as needed for muscle spasms. 0 Active Completed/Discontinued Medications Medication Drug Class(es) Dates Sig (Normalized) Sig (Original) acetaminophen 325 mg oral tablet (1 source) Start: 06-07-2020 End: 06-10-2020 take 1 tablet by mouth every four hours as needed 650 mg, Oral, Every 4 hours PRN, mild pain, fever 100.4 F or greater, headaches, Starting 06/07/20 at 1120 acetaminophen 325 mg / HYDROcodone bitartrate 5 mg oral tablet (1 source) Opioid Agonist Start: 08-01-2020 End: 08-01-2020 HYDROcodone-aceta minophen (NORCO) 5-325 MG per tablet 1 tablet Start: 08-01-2020 End: 08-01-2020 HYDROcodone-acetaminophen (N ORCO) 5-325 MG per tablet 1 tablet Calcium Gluconate (1 source) Start: 07-02-2023 End: 07-04-2023 calcium gluconate IVPB 1000 mg/50 mL (20 mg/mL premix) cefTRIAXone (ROCEPHIN) 1000 mg IVPB in 50 mL D5W minibag (1 source) Start: 07-30-2020 End: 08-01-2020 cefTRIAXone (ROCEPHIN) 1000 mg IVPB in 50 mL D5W minibag D5 % and 0.45 % sodium chloride 1,000 mL with potassium chloride 40 mEq infusion (1 source) Start: 07-02-2023 End: 07-03-2023 D5 % and 0.45 % sodium chloride 1,000 mL with potassium chloride 40 mEq infusion D5 % and lactated ringer's 1,000 mL with potassium chloride 40 mEq infusion (1 source) Start: 07-03-2023 End: 07-04-2023 D5 % and lactated ringer's 1,000 mL with potassium chloride 40 mEq infusion 100 ml dexmedetomidine 0.004 mg/ml injection (1 source) Central alpha-2 Adrenergic Agonist Start: 07-30-2020 End: 07-31-2020 dexmedetomidine (PRECEDEX) 400 mcg in sodium chloride 0.9 % 100 mL infusion 0.4 ml enoxaparin sodium 100 mg/ml prefilled syringe (3 sources) Low Molecular Weight Heparin Start: 07-03-2023 End: 07-04-2023 enoxaparin (LOVENOX) syringe 40 mg Start: 07-29-2020 enoxaparin (LO VENOX) injection 40 mg Start: 06-07-2020 End: 06-10-2020 inject 40 mg by subcutaneous injection once daily 40 mg, Subcutaneous, Daily, First dose on Fri06/07/20 at 1215 Administer in abdomen unless otherwise directed by prescriber. Notify physician if patient refuses. Indication: VTE Prophylaxis 2 ml famotidine 10 mg/ml injection (1 source) Histamine-2 Receptor Antagonist Start: 07-30-2020 End: 08-01-2020 famotidine (PEPCID) injection 20 mg glucagon (rdna) 1 mg injection (2 sources) Antihypoglycemic Agent Start: 07-02-2023 End: 07-04-2023 glucagon HCL injection 1 mg Start: 07-31-2020 glucagon (rDNA ) injection 1 mg 150 ml glucose 50 mg/ml injection (6 sources) Start: 07-02-2023 End: 07-04-2023 dextrose (GLUTOSE) 40 % gel 15 g Start: 07-02-2023 End: 07-04-2023 dextrose 50 % in water (D50W ) 50% solution 25 mL Start: 07-02-2023 End: 07-04-2023 dextrose 5 % (D5W) infusion Start: 07-31-2020 glucose (GLUTO SE) 40 % oral gel 15 g Start: 07-31-2020 dextrose 50 % IV solution Start: 07-31-2020 dextrose 5 % s olution 1000 ml glucose 50 mg/ml / potassium chloride 0.04 meq/ml / sodium chloride 4.5 mg/ml injection (4 sources) Start: 07-03-2023 End: 07-03-2023 dextrose 5 % and sodium chloride 0.45 % with KCl 40 mEq/L infusion Start: 07-02-2023 End: 07-04-2023 dextrose 5 % and sodium chlo ride 0.9 % with KCl 40 mEq/L infusion Start: 07-30-2020 End: 07-31-2020 dextrose 5 % and 0.45 % NaCl with KCl 20 mEq infusion Start: 06-07-2020 End: 06-08-2020 dextrose 5 % and sodium chlo ride 0.45 % with KCl 20 mEq/L infusion 250 ml glucose 50 mg/ml / so dium chloride 4.5 mg/ml injection (3 sources) Start: 07-02-2023 End: 07-02-2023 dextrose 5 % and sodium chloride 0.45 % infusion Start: 07-31-2020 End: 07-31-2020 dextrose 5 % and 0.45 % sodi um chloride infusion Start: 07-29-2020 End: 07-30-2020 dextrose 5 % and 0.45 % sodi um chloride infusion ibuprofen 800 mg oral tablet (1 source) Nonsteroidal Anti-inflammatory Drug Start: 06-18-2022 End: 07-03-2023 take 1 tablet by mouth three times daily ibuprofen (MOTRIN) 800 mg tablet Take 1 tablet (800 mg total) by mouth 3 (three) times a day. 21 tablet 0 06/18/2022 07/03/2023 Discontinued (Therapy completed) insulin lispro (HumaLOG) injection 2-10 Units (2 sources) Start: 07-04-2023 End: 07-04-2023 insulin lispro (HumaLOG) injection 2-10 Units Start: 07-04-2023 End: 07-04-2023 insulin lispro (HumaLOG) inj ection 2-10 Units insulin regular (HUMULIN R;NOVOLIN R) 100 Units in sodium chloride 0.9 % 100 mL infusion (1 source) Start: 07-29-2020 End: 07-31-2020 insulin regular (HUMULIN R;NOVOLIN R) 100 Units in sodium chloride 0.9 % 100 mL infusion insulin regular in 0.9 % NaCl (MYXREDLIN) 100 Units/100 mL infusion (1 source) Start: 06-07-2020 End: 06-08-2020 insulin regular in 0.9 % NaCl (MYXREDLIN) 100 Units/100 mL infusion 100 ml insulin, regular, human 1 unt/ml injection (1 source) Insulin Start: 07-02-2023 End: 07-04-2023 insulin regular (MYXREDLIN) infusion 100 units/100 mL in sodium chloride 0.9% (1 unit/mL premix) 1 ml ketorolac tromethamine 30 mg/ml cartridge (1 source) Nonsteroidal Anti-inflammatory Drug, Cyclooxygenase Inhibitor Start: 07-30-2020 End: 08-01-2020 ketorolac (TORADOL) injection 15 mg magnesium sulfate IVPB 2000 mg/50 mL in iso-osmotic water (40 mg/mL premix) (1 source) Start: 07-02-2023 End: 07-04-2023 magnesium sulfate IVPB 2000 mg/50 mL in iso-osmotic water (40 mg/mL premix) 5 ml metoprolol tartrate 1 mg/ml injection (1 source) beta-Adrenergic Umu Start: 07-30-2020 End: 07-30-2020 metoprolol (LOPRESSOR) injection 5 mg Start: 07-30-2020 End: 07-30-2020 metoprolol (LOPRESSOR) injec tion 5 mg 2 ml ondansetron 2 mg/ml injection (5 sources) Serotonin-3 Receptor Antagonist Start: 07-03-2023 End: 07-03-2023 ondansetron (PF) (ZOFRAN) injection 4 mg Start: 06-18-2022 End: 07-03-2023 take 1 tablet by mouth every eight hours as needed for nausea and vomiting ondansetron ODT (ZOFRAN ODT) 4 mg disintegrating tablet Dissolve 1 tablet (4 mg total) on tongue every 8 (eight) hours as needed for nausea or vomiting. 20 tablet 1 06/18/2022 07/03/2023 Discontinued (Therapy completed) Start: 06-07-2020 End: 06-10-2020 take 4 mg intravenous route every six hours as needed 4 mg, Intravenous, Every 6 hours PRN, nausea, vomiting, Starting Fri06/07/20 at 1120 take 1 tablet by mitchell th every six hours as needed ondansetron (ZOFRAN-ODT) 4 MG disintegrating tablet Dissolve 4 mg on top of tongue every 6 (six) hours as needed for nausea . 0 Active pantoprazole 40 mg delayed release oral tablet (3 sources) Proton Pump Inhibitor Start: 06-07-2020 End: 06-10-2020 take 40 mg by mouth once daily 40 mg, Oral, Daily, First dose on Fri06/07/20 at 1215 DO NOT CRUSH OR CHEW. pantoprazole (GA OTONIX) 20 mg EC tablet Take 30 mg by mouth in the morning. 0 Active Potassium Chloride (7 sources) Start: 07-02-2023 End: 07-04-2023 potassium chloride (K-TAB,KL OR-CON) CR tablet 20-50 mEq Start: 08-01-2020 End: 08-01-2020 potassium chloride (KLOR-CON M) extended release tablet 40 mEq Start: 07-30-2020 potassium chlo ride 20 mEq/50 mL IVPB (Central Line) Start: 07-29-2020 End: 07-30-2020 potassium chloride 10 mEq/10 0 mL IVPB (Peripheral Line) Start: 06-08-2020 End: 06-10-2020 potassium chloride SA (K-DUR ,KLOR-CON) CR tablet 40 mEq Start: 06-07-2020 End: 06-08-2020 potassium chloride 20 mEq in 100 mL IVPB 1000 ml potassium chloride 0 .02 meq/ml / sodium chloride 9 mg/ml injection (1 source) Start: 06-08-2020 End: 06-10-2020 sodium chloride 0.9 % with K Cl 20 mEq/L infusion potassium chloride 20 mEq, sodium bicarbonate 75 mEq in sterile water 500 mL infusion (1 source) Start: 07-29-2020 End: 07-29-2020 potassium chloride 20 mEq, sodium bicarbonate 75 mEq in sterile water 500 mL infusion potassium chloride IVPB 10 mEq/50 mL in water (0.2 mEq/mL premix) (1 source) Start: 07-02-2023 End: 07-04-2023 potassium chloride IVPB 10 mEq/50 mL in water (0.2 mEq/mL premix) potassium phosphate 155 mg / sodium phosphate, dibasic 852 mg / sodium phosphate, monobasic 130 mg oral tablet (3 sources) Start: 07-04-2023 End: 07-04-2023 sod phos di, mono-K phos mon o (K-PHOS NEUTRAL) 250 mg tablet 1 tablet Start: 06-08-2020 End: 06-10-2020 sod phos di, mono-K phos mon o (K-PHOS NEUTRAL) tablet 500 mg potassium phosphate 10 mmol in dextrose 5 % 250 mL IVPB (3 sources) Start: 08-01-2020 End: 08-01-2020 potassium phosphate 10 mmol in dextrose 5 % 250 mL IVPB Start: 07-31-2020 End: 07-31-2020 potassium phosphate 10 mmol in dextrose 5 % 250 mL IVPB Start: 07-31-2020 End: 07-31-2020 potassium phosphate 10 mmol in dextrose 5 % 250 mL IVPB potassium phosphate 20 mmol in dextrose 5 % 250 mL IVPB (1 source) Start: 07-30-2020 End: 07-30-2020 potassium phosphate 20 mmol in dextrose 5 % 250 mL IVPB potassium phosphate 30 mmol in sodium chloride 0.9 % (NS) 250 mL IVPB (1 source) Start: 06-08-2020 End: 06-08-2020 potassium phosphate 30 mmol in sodium chloride 0.9 % (NS) 250 mL IVPB prochlorperazine 5 mg/ml injectable solution (2 sources) Phenothiazine Start: 07-03-2023 End: 07-04-2023 take 5 mg intravenously every six hours as needed for nausea and vomiting prochlorperazine (COMPAZINE) injection 5 mg Start: 07-31-2020 prochlorperazi ne (COMPAZINE) injection 5 mg 10 ml sodium bicarbonate 84 mg/ml injection (3 sources) Start: 07-29-2020 End: 07-29-2020 sodium bicarbonate 8.4 % injection 100 mEq Start: 07-29-2020 End: 07-29-2020 sodium bicarbonate 8.4 % inj ection 50 mEq Start: 07-29-2020 End: 07-29-2020 sodium bicarbonate 8.4 % inj ection Sodium Chloride (8 sources) Start: 07-03-2023 End: 07-04-2023 take 10 mL intravenously every twelve hours sodium chloride 0.9 % flush 10 mL Start: 07-02-2023 End: 07-04-2023 take 20 mL intravenously every twelve hours sodium chloride 0.9 % flush 20 mL Start: 07-02-2023 End: 07-04-2023 sodium chloride 0.9 % infusi on Start: 07-31-2020 0.45 % sodium chloride infusion Start: 07-29-2020 End: 07-30-2020 0.45 % sodium chloride infus ion Start: 06-07-2020 End: 06-10-2020 sodium chloride (PF) (NS) fl ush 5 mL sodium phosphate 20 mmol in sodium chloride 0.9 % 250 mL IVPB (1 source) Start: 07-02-2023 End: 07-04-2023 sodium phosphate 20 mmol in sodium chloride 0.9 % 250 mL IVPB sodium phosphate 30 mmol in sodium chloride 0.9 % 250 mL IVPB (2 sources) Start: 07-04-2023 End: 07-04-2023 sodium phosphate 30 mmol in sodium chloride 0.9 % 250 mL IVPB Start: 07-02-2023 End: 07-03-2023 sodium phosphate 30 mmol in sodium chloride 0.9 % 250 mL IVPB Problems Active Problems Problem Classification Problem Date Documented Date Episodic/Chronic Anxiety disorders (1 source) Generalized anxiety disorder; Translations: [GENERALIZED ANXIETY DISORDER] Onset: 09-17-2022 Chronic Asthma (1 source) Mild intermittent asthma, uncomplicated; Translations: [MILD INTERMIT ASTHMA UNCOMPLICATED] Onset: 09-17-2022 Chronic Attention-deficit, conduct, and disruptive behavior disorders (1 source) Attention-deficit hyperactivity disorder, predominantly inattentive type; Translations: [ADHD INATTENTIVE TYPE] Onset: 09-17-2022 Chronic Cardiac dysrhythmias (1 source) Sick sinus syndrome; Translations: [Sick sinus syndrome] Onset: 07-02-2023 Chronic Cardiac dysrhythmias (1 source) Tachycardia, unspecified; Translations: [Tachycardia, unspecified] Onset: 07-02-2023 Episodic Diabetes mellitus with complications (15 sources) Type 1 diabetes mellitus with ketoacidosis without coma; Translations: [Diabetic ketoacidosis without coma] Onset: 07-03-2018 Chronic Diabetes mellitus with complications (4 sources) Type 2 diabetes mellitus with ketoacidosis without coma; Translations: [TYPE 2 DM KETOACIDOSIS W/O COMA] Onset: 07-29-2020 Diabetes mellitus without complication (7 sources) Type 1 diabetes mellitus; Translations: [Type 1 diabetes mellitus with ketoacidosis without coma] Onset: 06-07-2020 06-07-2020 Chronic Diabetes mellitus without complication (1 source) Presence of insulin pump (external) (internal); Translations: [PRESENCE INSULIN PUMP EXT INTERNAL] Onset: 09-17-2022 Episodic Esophageal disorders (1 source) Gastro-esophageal reflux disease without esophagitis; Translations: [GERD WITHOUT ESOPHAGITIS] Onset: 09-17-2022 Chronic Mood disorders (1 source) Bipolar disorder, currently in remission, most recent episode unspecified; Translations: [BIPOLAR CURRENT REMISSION MRE UNS] Onset: 09-17-2022 Chronic Nausea and vomiting (2 sources) Nausea; Translations: [Nausea] Onset: 07-04-2023 Episodic Nutritional deficiencies (1 source) Deficiency of macronutrients; Translations: [Unspecified severe protein-calorie malnutrition] Onset: 04-03-2020 03-01-2021 Chronic Other aftercare (1 source) [facility] (current) use of insulin; Translations: [HALF-WAY CURRENT USE OF INSULIN] Onset: 09-17-2022 Episodic Other aftercare (1 source) Other [facility] (current) drug therapy; Translations: [OTH GENERAL MANAGER CURRENT DRUG THERAPY] Onset: 09-17-2022 Episodic Other hematologic conditions (1 source) Other specified abnormalities of plasma proteins; Translations: [Other specified abnormalities of plasma proteins] Onset: 03-18-2023 Episodic Other inflammatory condition of skin (1 source) Psoriasis vulgaris; Translations: [PSORIASIS VULGARIS] Onset: 09-17-2022 Chronic Other injuries and conditions due to external causes (1 source) Hypothermia, initial encounter; Translations: [HYPOTHERMIA INITIAL ENCOUNTER] Onset: 08-01-2020 Episodic Other injuries and conditions due to external causes (1 source) Underdosing of insulin and oral hypoglycemic [antidiabetic] drugs, initial encounter; Translations: [UNDRDOS INSULIN ORL HG RX INIT ENC] Onset: 09-17-2022 Episodic Other nervous system disorders (1 source) Metabolic encephalopathy; Translations: [METABOLIC ENCEPHALOPATHY] Onset: 08-01-2020 Chronic Other screening for suspected conditions (not mental disorders or infectious disease) (1 source) Abnormal electrocardiogram [ECG] [EKG]; Translations: [Abnormal electrocardiogram (ECG) (EKG)] Onset: 07-02-2023 Episodic Pneumonia (except that caused by tuberculosis or sexually transmitted disease) (1 source) Pneumonia, unspecified organism; Translations: [PNEUMONIA UNSPECIFIED ORGANISM] Onset: 08-01-2020 Episodic Residual codes; unclassified (1 source) Patient's unintentional underdosing of medication regimen for other reason; Translations: [PT UNINTENT UNDRDOS MED OTH REASON] Onset: 09-17-2022 Episodic Residual codes; unclassified (1 source) Pain, unspecified; Translations: [Pain, unspecified] Onset: 07-02-2023 Episodic Screening and history of mental health and substance abuse codes (1 source) Personal history of nicotine dependence; Translations: [PERSONAL HISTORY OF NICOTINE DEPEND] Onset: 09-17-2022 Episodic Substance-related disorders (1 source) Methamphetamine abuse; Translations: [Other stimulant abuse, uncomplicated] Onset: 11-24-2020 11-24-2020 Chronic Substance-related disorders (1 source) Other psychoactive substance abuse, in remission; Translations: [OTH PSYCHOACT SBSTNC ABUSE REMISS] Onset: 08-01-2020 Unclassified (5 sources) CONTACT W/AND (SUSP) EXPOS COVID-19; Translations: [CONTACT W/AND (SUSP) EXPOS COVID-19] Onset: 08-01-2020 Unclassified (1 source) DKA Onset: 07-02-2023 Past or Other Problems Problem Classification Problem Date Documented Da te Episodic/Chronic Mood disorders (1 source) Mood disorders Onset: 07-03-2023 07-03-2023 Respiratory failure; insufficiency; arrest (adult) (1 source) Acute respiratory failure; Translations: [Acute respiratory failure, unspecified whether with hypoxia or hypercapnia] Onset: 01-24-2021 01-24-2021 Episodic Skin and subcutaneous tissue infections (1 source) Furuncle of groin; Translations: [Furuncle of groin] Onset: 11-24-2020 11-24-2020 Episodic Unclassified (1 source) CONTACT W/AND (SUSP) EXPOS COVID-19; Translations: [CONTACT W/AND (SUSP) EXPOS COVID-19] Onset: 03-18-2022 Results Test Name Value Interpretation Reference Range Facility BASIC METABOLIC PANLon 07-04 Anion gap [Moles/Vol] 7 mmol/L Normal 5-15 [facility] Comment on above: Performed By: #### 6 873-4, 95655-5, 35374-8, CMP, 20822-1, HA1C, CBCA #### [facility] ([id number]) [address] [place] [address] Calcium [Mass/Vol] 7.8 mg/dL Low 8.5-10.5 [facility] Comment on above: Performed By: #### 6 873-4, 37754-8, 15770-7, CMP, 27027-1, HA1C, CBCA #### [facility] ([id number]) [address], [address] [place] [address] Chloride [Moles/Vol] 98 mmol/L Normal 98-109 [facility] Comment on above: Performed By: #### 6 873-4, 34376-9, 56011-0, CMP, 31601-3, HA1C, CBCA #### [facility] ([id number]) [address], [address] [place] [address] CO2 [Moles/Vol] 27 mmol/L Normal 22-32 [facility] Comment on above: Performed By: #### 6 873-4, 21982-0, 86709-2, CMP, 83763-5, HA1C, CBCA #### [facility] ([id number]) [address], [address] [place] [address] Creatinine [Mass/Vol] 0.50 mg/dL Normal 0.40-1.00 [facility] Comment on above: Result Comment: METH OD TRACEABLE TO IDMS STANDARD Performed By: #### 6 873-4, 51215-6, 82867-5, CMP, 27067-7, HA1C, CBCA #### [facility] ([id number]) [address], [address] [place] [address] eGFR (CKD-EPI) NON-RACE DEPENDENT >90 Normal >59 [facility] Comment on above: Result Comment: Reported eGFR is based on the CKD-EPI 2020 equation that does not use a race coefficient. Performed By: #### 6 873-4, 46727-6, 03454-9, CMP, 51910-6, HA1C, CBCA #### [facility] ([id number]) [address], [address] [place] [address] Glucose [Mass/Vol] 290 mg/dL High 65-99 [facility] Comment on above: Performed By: #### 6 873-4, 14480-5, 64349-5, CMP, 47068-1, HA1C, CBCA #### [facility] ([id number]) [address], [address] [place] [address] Potassium [Moles/Vol] 3.7 mmol/L Normal 3.5-5.0 [facility] Comment on above: Performed By: #### 6 873-4, 62866-6, 37328-0, CMP, 30059-9, HA1C, CBCA #### [facility] ([id number]) [address], [address] [place] [address] Sodium [Moles/Vol] 132 mmol/L Low 134-146 [facility] Comment on above: Performed By: #### 6 873-4, 42690-7, , CMP, 63912-7, HA1C, CBCA #### [facility] ([id number]) [address], [address] [place] [address] Urea nitrogen [Mass/Vol] 2 mg/dL Low 5-23 [facility] Comment on above: Performed By: #### 6 873-4, 60187-5, , CMP, 44523-5, HA1C, CBCA #### [facility] ([id number]) [address], [address] [place] [address] Beta hydroxybutyrate [Moles/ Vol]on 07-04-2023 BetaHydroxybutyrate 0.38 mmol/L High 0.02-0.27 [facility] Comment on above: Performed By: #### 6 873-4, 20631-5, 77381-5, CMP, 55248-1, HA1C, CBCA #### [facility] ([id number]) [address], [address] [place] [address] BetaHydroxybutyrate <0.10 Normal 0.02-0.27 [facility] Comment on above: Performed By: #### 6 873-4, 85480-0, 08261-7, CMP, 03615-6, HA1C, CBCA #### [facility] ([id number]) [address], [address] [place] [address] BetaHydroxybutyrateon 2023 Beta hydroxybutyrate [Moles/Vol] mmol/L 0.02 - 0.27 mmol/L [facility] CBC AND AUTO DIFFon 07-04-19 ABSOLUTE BASOPHIL 0.0 X10E9/L Normal 0.0-0.2 [facility] Comment on above: Performed By: #### 6 873-4, 28985-9, 22691-0, CMP, 79662-7, HA1C, CBCA #### [facility] ([id number]) [address], [address] [place] [address] ABSOLUTE NEUTROPHIL 5.2 X10E9/L Normal 1.5-6.6 [facility] Comment on above: Performed By: #### 6 873-4, 32065-7, 41998-3, CMP, 73131-6, HA1C, CBCA #### [facility] ([id number]) [address] [address] Basophils/100 WBC (Bld) 0.7 % Normal P [facility] Comment on above: Performed By: #### 6 873-4, 38644-9, 56787-6, CMP, 08571-6, HA1C, CBCA #### [facility] ([id number]) [address], [address] [place] [address] Eosinophils (Bld) [#/Vol] 0.0 10*3/uL Normal 0.0-0.4 [facility] Comment on above: Performed By: #### 6 873-4, 02532-4, 98750-5, CMP, 17202-2, HA1C, CBCA #### [facility] ([id number]) [address], [address] [place] [address] Eosinophils/100 WBC (Bld) 0.6 % Normal [facility] Comment on above: Performed By: #### 6 873-4, 00222-2, 16992-0, CMP, 19992-1, HA1C, CBCA #### [facility] ([id number]) [address], [address] [place] [address] Erythrocyte distribution width (RBC) [Ratio] 15.3 % High 11.5-15.0 [facility] Comment on above: Performed By: #### 6 873-4, 12648-3, 20552-2, CMP, 33396-2, HA1C, CBCA #### [facility] ([id number]) [address] [address] [place] [address] Hematocrit (Bld) [Volume fraction] 36.1 % Normal 35-47 [facility] Comment on above: Performed By: #### 6 873-4, 52079-8, 61323-8, CMP, 31145-7, HA1C, CBCA #### [facility] ([id number]) [address], [facility] [address] [place] [address] Hemoglobin (Bld) [Mass/Vol] 11.9 g/dL Normal 11.7-15.5 [facility] Comment on above: Performed By: #### 6 873-4, 89458-3, 07102-2, CMP, 52562-9, HA1C, CBCA #### [facility] ([id number]) [address], [address] [place] [address] Lymphocytes (Bld) [#/Vol] 1.5 10*3/uL Normal 1.0-3.5 [facility] Comment on above: Performed By: #### 6 873-4, 05857-4, 67181-9, CMP, 66263-0, HA1C, CBCA #### [facility] ([id number]) [address], [address] [place] [address] Lymphocytes/100 WBC (Bld) 21.1 % Normal [facility] Comment on above: Performed By: #### 6 873-4, 99021-2, 86554-5, CMP, 52122-1, HA1C, CBCA #### [facility] ([id number]) [address], [address] [place] [address] MCH (RBC) [Entitic mass] 25.2 pg Low 27-34 [facility] Comment on above: Performed By: #### 6 873-4, 08382-4, 45945-4, CMP, 98898-8, HA1C, CBCA #### [facility] ([id number]) [address], [facility] [address] [place] [address] MCHC (RBC) [Mass/Vol] 33.0 g/dL Normal 32-36 [facility] Comment on above: Performed By: #### 6 873-4, 68765-1, 17387-2, CMP, 38388-6, HA1C, CBCA #### [facility] ([id number]) [address], [address] [place] [address] MCV (RBC) [Entitic vol] 76 fL Low 80-100 P [facility] Comment on above: Performed By: #### 6 873-4, 02371-3, 80958-3, CMP, 87304-2, HA1C, CBCA #### [facility] ([id number]) [address], [address] [place] [address] Monocytes (Bld) [#/Vol] 0.5 10*3/uL Normal 0-0.9 [facility] Comment on above: Performed By: #### 6 873-4, 68842-5, 60725-2, CMP, 30861-8, HA1C, CBCA #### [facility] ([id number]) [address], [address] [place] [address] Monocytes/100 WBC (Bld) 6.7 % Normal [facility] Comment on above: Performed By: #### 6 873-4, 32614-8, 49838-5, CMP, 37613-3, HA1C, CBCA #### [facility] ([id number]) [address], [address] [place] [address] Neutrophils/100 WBC (Bld) 70.9 % Normal [facility] Comment on above: Performed By: #### 6 873-4, 55453-6, 86063-7, CMP, 16896-6, HA1C, CBCA #### [facility] ([id number]) [address], [facility] [address] [place] [address] Platelet mean volume (Bld) [Entitic vol] 7.8 fL Normal 7-12 [facility] Comment on above: Performed By: #### 6 873-4, 10343-5, 84689-4, CMP, 84826-8, HA1C, CBCA #### [facility] ([id number]) [address], [address] [place] [address] Platelets (Bld) [#/Vol] 221 10*3/uL Normal 150-450 [facility] Comment on above: Performed By: #### 6 873-4, 38896-5, 67402-4, CMP, 87675-0, HA1C, CBCA #### [facility] ([id number]) [address], [address] [place] [address] RBC COUNT 4.72 X10E12/L Normal 3.80-5.20 [facility] Comment on above: Performed By: #### 6 873-4, 77906-3, 71145-6, CMP, 85274-1, HA1C, CBCA #### [facility] ([id number]) [address], [address] [place] [address] WBC (Bld) [#/Vol] 7.3 10*3/uL Normal 4.0-11.0 [facility] Comment on above: Performed By: #### 6 873-4, 11089-7, 28768-2, CMP, 82512-2, HA1C, CBCA #### [facility] ([id number]) [address], [address] [place] [address] ABSOLUTE BASOPHIL 0.0 X10E9/L Normal 0.0-0.2 [facility] Comment on above: Performed By: #### 6 873-4, 71413-2, 71853-3, CMP, 00645-9, HA1C, CBCA #### [facility] ([id number]) [address], [address] [place] [address] ABSOLUTE NEUTROPHIL 5.2 X10E9/L Normal 1.5-6.6 [facility] Comment on above: Performed By: #### 6 873-4, 38950-2, 56307-0, CMP, 27998-8, HA1C, CBCA #### [facility] ([id number]) [address], [address] [place] [address] Basophils/100 WBC (Bld) 0.3 % Normal [facility] Comment on above: Performed By: #### 6 873-4, 00434-3, 96771-8, CMP, 94519-8, HA1C, CBCA #### [facility] ([id number]) [address], [address] [place] [address] Eosinophils (Bld) [#/Vol] 0.0 10*3/uL Normal 0.0-0.4 [facility] Comment on above: Performed By: #### 6 873-4, 30599-3, 57489-4, CMP, 28144-4, HA1C, CBCA #### [facility] ([id number]) [address], [address] [place] [address] Eosinophils/100 WBC (Bld) 0.2 % Normal [facility] Comment on above: Performed By: #### 6 873-4, 88414-0, 80941-9, CMP, 42349-6, HA1C, CBCA #### [facility] ([id number]) [address] [address] Erythrocyte distribution width (RBC) [Ratio] 15.4 % High 11.5-15.0 [facility] Comment on above: Performed By: #### 6 873-4, 48983-7, 01713-3, CMP, 16061-9, HA1C, CBCA #### [facility] ([id number]) [address] [address] Hematocrit (Bld) [Volume fraction] 30.9 % Low 35-47 [facility] Comment on above: Performed By: #### 6 873-4, 41528-7, 45482-3, CMP, 84971-5, HA1C, CBCA #### [facility] ([id number]) [address] [address] Hemoglobin (Bld) [Mass/Vol] 10.4 g/dL Low 11.7-15.5 [facility] Comment on above: Performed By: #### 6 873-4, 80472-8, 16018-3, CMP, 13493-5, HA1C, CBCA #### [facility] ([id number]) [address] [address] Lymphocytes (Bld) [#/Vol] 1.7 10*3/uL Normal 1.0-3.5 [facility] Comment on above: Performed By: #### 6 873-4, 15389-0, 35435-6, CMP, 00672-5, HA1C, CBCA #### [facility] ([id number]) [address] [address] Lymphocytes/100 WBC (Bld) 22.6 % Normal [facility] Comment on above: Performed By: #### 6 873-4, 63617-5, 22996-6, CMP, 48590-7, HA1C, CBCA #### [facility] ([id number]) [address], [address] [place] [address] MCH (RBC) [Entitic mass] 25.8 pg Low 27-34 [facility] Comment on above: Performed By: #### 6 873-4, 48317-8, 51687-4, CMP, 93469-9, HA1C, CBCA #### [facility] ([id number]) [address], [facility] [address] [place] [address] MCHC (RBC) [Mass/Vol] 33.7 g/dL Normal 32-36 [facility] Comment on above: Performed By: #### 6 873-4, 21078-9, 52481-9, CMP, 77209-9, HA1C, CBCA #### [facility] ([id number]) [address], [address] [place] [address] MCV (RBC) [Entitic vol] 77 fL Low 80-100 P [facility] Comment on above: Performed By: #### 6 873-4, 84844-4, 85394-3, CMP, 82468-7, HA1C, CBCA #### [facility] ([id number]) [address], [address] [place] [address] Monocytes (Bld) [#/Vol] 0.6 10*3/uL Normal 0-0.9 [facility] Comment on above: Performed By: #### 6 873-4, 42583-4, 66916-2, CMP, 94576-1, HA1C, CBCA #### [facility] ([id number]) [address], [address] [place] [address] Monocytes/100 WBC (Bld) 7.9 % Normal P [facility] Comment on above: Performed By: #### 6 873-4, 97969-4, 00206-5, CMP, 69504-8, HA1C, CBCA #### [facility] ([id number]) [address], [address] [place] [address] Neutrophils/100 WBC (Bld) 69.0 % Normal [facility] Comment on above: Performed By: #### 6 873-4, 62190-3, 34411-6, CMP, 59707-0, HA1C, CBCA #### [facility] ([id number]) [address], [facility] [address] [place] [address] Platelet mean volume (Bld) [Entitic vol] 7.6 fL Normal 7-12 [facility] Comment on above: Performed By: #### 6 873-4, 83421-4, 20499-0, CMP, 41895-4, HA1C, CBCA #### [facility] ([id number]) [address], [address] [place] [address] Platelets (Bld) [#/Vol] 221 10*3/uL Normal 150-450 [facility] Comment on above: Performed By: #### 6 873-4, 32095-9, 17678-7, CMP, 54048-7, HA1C, CBCA #### [facility] ([id number]) [address], [address] [place] [address] RBC COUNT 4.03 X10E12/L Normal 3.80-5.20 [facility] Comment on above: Performed By: #### 6 873-4, 35145-0, 78565-3, CMP, 29747-6, HA1C, CBCA #### [facility] ([id number]) [address], [address] [place] [address] WBC (Bld) [#/Vol] 7.6 10*3/uL Normal 4.0-11.0 [facility] Comment on above: Performed By: #### 6 873-4, 17179-1, 40015-5, CMP, 78232-5, HA1C, CBCA #### [facility] ([id number]) [address] [facility], [address] [place] [address] CBC auto differentialon Basophils (Bld) [#/Vol] 0.0 10*3/uL [facility] Basophils/100 WBC (Bld) 0.3 % P [facility] Eosinophils (Bld) [#/Vol] 0.0 10*3/uL [facility] Eosinophils/100 WBC (Bld) 0.2 % [facility] Erythrocyte distribution width (RBC) [Ratio] 15.4 % High 11.5 - 15.0 % [facility] Hematocrit (Bld) [Volume fraction] 30.9 % Low 35 - 47 % [facility] Hemoglobin (Bld) [Mass/Vol] 10.4 g/dL Low 11.7 - 15.5 g/dL [facility] Interpretation and review of laboratory results Abnormal [facility] Lymphocytes (Bld) [#/Vol] 1.7 10*3/uL [facility] Lymphocytes/100 WBC (Bld) 22.6 % [facility] MCH (RBC) [Entitic mass] 25.8 pg Low 27 - 34 pg [facility] MCHC (RBC) [Mass/Vol] 33.7 g/dL 32 - 36 g/dL P [facility] MCV (RBC) [Entitic vol] 77 fL Low 80 - 100 fL [facility] Monocytes (Bld) [#/Vol] 0.6 10*3/uL [facility] Monocytes/100 WBC (Bld) 7.9 % P [facility] Neutrophils (Bld) [#/Vol] 5.2 10*3/uL [facility] Neutrophils/100 WBC (Bld) 69.0 % [facility] Platelet mean volume (Bld) [Entitic vol] 7.6 fL 7 - 12 fL [facility] Platelets (Bld) [#/Vol] 221 10*3/uL [facility] RBC (Bld) [#/Vol] 4.03 10*6/uL [facility] WBC corrected for nucl RBC Auto (Bld) [#/Vol] 7.6 [facility] COMPREHENSIVE METABOLIC PANE Galileo 07-04-2023 Albumin [Mass/Vol] 3.0 g/dL Low 3.2-5.3 [facility] Comment on above: Performed By: #### 6 873-4, 67124-7, 66152-7, CMP, 09077-7, HA1C, CBCA #### [facility] ([id number]) [address], [address] [place] [address] ALP [Catalytic activity/Vol] 68 U/L Normal 39-130 [facility] Comment on above: Performed By: #### 6 873-4, 39932-0, 26518-4, CMP, 92222-0, HA1C, CBCA #### [facility] ([id number]) [address], [address] [place] [address] ALT [Catalytic activity/Vol] 14 U/L Normal 0-31 [facility] Comment on above: Performed By: #### 6 873-4, 92811-2, 03180-6, CMP, 07526-6, HA1C, CBCA #### [facility] ([id number]) [address], [address] [place] [address] Anion gap [Moles/Vol] 5 mmol/L Normal 5-15 [facility] Comment on above: Performed By: #### 6 873-4, 92414-1, 30685-1, CMP, 71307-7, HA1C, CBCA #### [facility] ([id number]) [address], [address] [place] [address] AST [Catalytic activity/Vol] 17 U/L Normal 0-41 [facility] Comment on above: Performed By: #### 6 873-4, 38162-5, 81412-3, CMP, 93211-8, HA1C, CBCA #### [facility] ([id number]) [address], [address] [place] [address] Bilirubin [Mass/Vol] 0.3 mg/dL Normal 0.3-1.2 [facility] Comment on above: Performed By: #### 6 873-4, 78170-1, 60142-1, CMP, 28712-2, HA1C, CBCA #### [facility] ([id number]) [address], [address] [place] [address] Calcium [Mass/Vol] 7.4 mg/dL Low 8.5-10.5 [facility] Comment on above: Performed By: #### 6 873-4, 92103-5, 23018-4, CMP, 91450-7, HA1C, CBCA #### [facility] ([id number]) [address], [address] [place] [address] Chloride [Moles/Vol] 113 mmol/L High 98-109 [facility] Comment on above: Performed By: #### 6 873-4, 75721-1, 00542-1, CMP, 79562-3, HA1C, CBCA #### [facility] ([id number]) [address], [address] [place] [address] CO2 [Moles/Vol] 23 mmol/L Normal 22-32 [facility] Comment on above: Performed By: #### 6 873-4, 75069-4, 82380-9, CMP, 45345-2, HA1C, CBCA #### [facility] ([id number]) [address], [address] [place] [address] Creatinine [Mass/Vol] 0.36 mg/dL Low 0.40-1.00 [facility] Comment on above: Result Comment: METH OD TRACEABLE TO IDMS STANDARD Performed By: #### 6 873-4, 21505-6, 71088-9, CMP, 84430-3, HA1C, CBCA #### [facility] ([id number]) [address], [address] [place] [address] eGFR (CKD-EPI) NON-RACE DEPENDENT >90 Normal >59 [facility] Comment on above: Result Comment: Reported eGFR is based on the CKD-EPI 1 equation that does not use a race coefficient. Performed By: #### 6 873-4, 57610-5, 81803-4, CMP, 61031-6, HA1C, CBCA #### [facility] ([id number]) [address], [address] [place] [address] Glucose [Mass/Vol] 89 mg/dL Normal 65-99 [facility] Comment on above: Performed By: #### 6 873-4, 85667-9, 61022-9, CMP, 94465-2, HA1C, CBCA #### [facility] ([id number]) [address], [address] [place] [address] Potassium [Moles/Vol] 3.4 mmol/L Low 3.5-5.0 [facility] Comment on above: Performed By: #### 6 873-4, 19719-7, 96203-7, CMP, 21799-9, HA1C, CBCA #### [facility] ([id number]) [address], [address] [place] [address] Protein [Mass/Vol] 5.0 g/dL Low 6.0-8.0 [facility] Comment on above: Performed By: #### 6 873-4, 89542-9, 30612-9, CMP, 88436-5, HA1C, CBCA #### [facility] ([id number]) [address], [address] [place] [address] Sodium [Moles/Vol] 141 mmol/L Normal 134-146 [facility] Comment on above: Performed By: #### 6 873-4, 76400-2, 73906-0, CMP, 75650-4, HA1C, CBCA #### [facility] ([id number]) [address] [facility], [address] [place] [address] Urea nitrogen [Mass/Vol] 2 mg/dL Low 5-23 [facility] Comment on above: Performed By: #### 6 873-4, 75890-5, 46333-5, CMP, 00785-3, HA1C, CBCA #### [facility] ([id number]) [address] [facility], [address] [place] [address] Calcium.ionized (Bld) [Mass/ Vol]on 07-04-2023 IONIZED CALCIUM 4.5 mg/dL Normal 4.5-5.3 [facility] Comment on above: Performed By: #### 6 873-4, 85092-5, 45046-6, CMP, 52621-3, HA1C, CBCA #### [facility] ([id number]) [address] [facility], [address] [place] [address] [facility] Comprehensive metabolic pane galileo 07-04-2023 Albumin [Mass/Vol] 3.0 g/dL Low 3.2 - 5.3 g/dL [facility] ALP [Catalytic activity/Vol] 68 U/L 39 - 130 U/L [facility] ALT No additional P-5'-P [Catalytic activity/Vol] 14 U/L 0 - 31 U/L [facility] Anion gap [Moles/Vol] 5 mmol/L 5 - 15 mmol/L [facility] AST [Catalytic activity/Vol] 17 U/L 0 - 41 U/L [facility] Bilirubin [Mass/Vol] 0.3 mg/dL 0.3 - 1 .2 mg/dL [facility] Calcium [Mass/Vol] 7.4 mg/dL Low 8.5 - 10. 5 mg/dL [facility] Chloride [Moles/Vol] 113 mmol/L High 98 - 10 9 mmol/L [facility] CO2 [Moles/Vol] 23 mmol/L 22 - 32 mmol/L [facility] Creatinine [Mass/Vol] 0.36 mg/dL Low 0.40 - 1.00 mg/dL [facility] Comment on above: METHOD TRACEABLE TO IDNJ STANDARD eGFR (CKD-EPI)non-race dependent - PINF [facility] Comment on above: Reported eGFR is based on the CKD-EPI 2020 equation that does not use a race coefficient. Glucose [Mass/Vol] 89 mg/dL 65 - 99 mg/dL [facility] Potassium [Moles/Vol] 3.4 mmol/L Low 3.5 - 5.0 mmol/L [facility] Protein [Mass/Vol] 5.0 g/dL Low 6.0 - 8.0 g/dL [facility] Sodium [Moles/Vol] 141 mmol/L 134 - 146 mmol/L [facility] Urea nitrogen [Mass/Vol] 2 mg/dL Low 5 - 23 mg/d L [facility] ELECTROLYTESon 07-04-2023 Anion gap [Moles/Vol] 4 mmol/L Low 5-15 [facility] Comment on above: Performed By: #### 6 873-4, 45884-1, 34032-1, CMP, 36610-7, HA1C, CBCA #### [facility] ([id number]) [address], [address] [place] [address] Chloride [Moles/Vol] 108 mmol/L Normal 98-109 [facility] Comment on above: Performed By: #### 6 873-4, 62257-7, 61820-5, CMP, 21279-4, HA1C, CBCA #### [facility] ([id number]) [address], [address] [place] [address] CO2 [Moles/Vol] 26 mmol/L Normal 22-32 [facility] Comment on above: Performed By: #### 6 873-4, 77964-3, 24055-1, CMP, 63379-2, HA1C, CBCA #### [facility] ([id number]) [address], [address] [place] [address] Potassium [Moles/Vol] 3.9 mmol/L Normal 3.5-5.0 [facility] Comment on above: Performed By: #### 6 873-4, 08210-5, 53358-0, CMP, 48232-8, HA1C, CBCA #### [facility] ([id number]) [address], [address] [place] [address] Sodium [Moles/Vol] 138 mmol/L Normal 134-146 [facility] Comment on above: Performed By: #### 6 873-4, 37277-0, 08947-4, CMP, 71123-7, HA1C, CBCA #### [facility] ([id number]) [address], [address] [place] [address] Anion gap [Moles/Vol] 7 mmol/L Normal 5-15 [facility] Comment on above: Performed By: #### 6 873-4, 26949-2, 64618-6, CMP, 53244-1, HA1C, CBCA #### [facility] ([id number]) [address], [address] [place] [address] Chloride [Moles/Vol] 109 mmol/L Normal 98-109 [facility] Comment on above: Performed By: #### 6 873-4, 70451-1, 56529-7, CMP, 93976-2, HA1C, CBCA #### [facility] ([id number]) [address], [address] [place] [address] CO2 [Moles/Vol] 21 mmol/L Low 22-32 [facility] Comment on above: Performed By: #### 6 873-4, 82877-5, 52220-2, CMP, 09059-6, HA1C, CBCA #### [facility] ([id number]) [address], [address] [place] [address] Potassium [Moles/Vol] 3.3 mmol/L Low 3.5-5.0 [facility] Comment on above: Performed By: #### 6 873-4, 63047-2, 90458-3, CMP, 49001-9, HA1C, CBCA #### [facility] ([id number]) [address], [address] [place] [address] Sodium [Moles/Vol] 137 mmol/L Normal 134-146 [facility] Comment on above: Performed By: #### 6 873-4, 54596-8, 96293-5, [facility], 00271-6, HA1C, CBCA #### [facility] ([id number]) [address], [address] [place] [address] ETHANOLon 07-04-2023 Ethanol [Mass/Vol] mg/dL Normal 0.00-0.08 [facility] Comment on above: Result Comment: This report is intended for use in clinical monitoring or management of patients. Performed By: #### 6 873-4, 50162-0, 09140-6, [facility], 73229-0, HA1C, CBCA #### [facility] ([id number]) [address], [address] [place] [address] Electrolyte panelon 07-04-19 Anion gap [Moles/Vol] 7 mmol/L 5 - 15 mmol/L [facility] Chloride [Moles/Vol] 109 mmol/L 98 - 10 9 mmol/L [facility] CO2 [Moles/Vol] 21 mmol/L Low 22 - 32 mmol/L [facility] Interpretation and review of laboratory results Abnormal [facility] Potassium [Moles/Vol] 3.3 mmol/L Low 3.5 - 5.0 mmol/L [facility] Sodium [Moles/Vol] 137 mmol/L 134 - 146 mmol/L [facility] Glucose Glucometer (BldC) [M ass/Vol]on 07-04-2023 Glucose [Mass/Vol] 203 mg/dL High 65-99 [facility] Glucose [Mass/Vol] 173 mg/dL High 65-99 [facility] [facility] Glucose [Mass/Vol] 140 mg/dL High 65 - 99 mg/dL [facility] Glucose [Mass/Vol] 173 mg/dL High 65 - 99 mg/dL [facility] Interpretation and review of laboratory results Abnormal [facility] Glucose [Mass/Vol] 140 mg/dL High 65-99 [facility] Glucose [Mass/Vol] 156 mg/dL High 65-99 [facility] Glucose [Mass/Vol] 156 mg/dL High 65 - 99 mg/dL [facility] Interpretation and review of laboratory results Abnormal [facility] Glucose [Mass/Vol] 139 mg/dL High 65 - 99 mg/dL [facility] Interpretation and review of laboratory results Abnormal [facility] Glucose [Mass/Vol] 139 mg/dL High 65-99 [facility] Glucose [Mass/Vol] 134 mg/dL High 65-99 [facility] Glucose [Mass/Vol] 147 mg/dL High 65-99 [facility] Glucose [Mass/Vol] 134 mg/dL High 65 - 99 mg/dL [facility] Interpretation and review of laboratory results Abnormal [facility] Glucose [Mass/Vol] 86 mg/dL Normal 65-99 [facility] Glucose [Mass/Vol] 147 mg/dL High 65 - 99 mg/dL [facility] Interpretation and review of laboratory results Abnormal [facility] Glucose [Mass/Vol] 106 mg/dL High 65-99 [facility] Glucose [Mass/Vol] 86 mg/dL 65 - 99 mg/dL [facility] Glucose [Mass/Vol] 163 mg/dL High 65-99 [facility] Glucose [Mass/Vol] 235 mg/dL High 65-99 [facility] Glucose [Mass/Vol] 106 mg/dL High 65 - 99 mg/dL [facility] Interpretation and review of laboratory results Abnormal [facility] Glucose [Mass/Vol] 163 mg/dL High 65 - 99 mg/dL [facility] Interpretation and review of laboratory results Abnormal [facility] Glucose [Mass/Vol] 238 mg/dL High 65-99 [facility] Glucose [Mass/Vol] 235 mg/dL High 65 - 99 mg/dL [facility] Interpretation and review of laboratory results Abnormal [facility] Glucose [Mass/Vol] 265 mg/dL High 65-99 [facility] Ionized calciumon 07-04-2023 Calcium.ionized (Bld) [Mass/Vol] 4.5 mg/dL 4.5 - 5.3 mg/dL [facility] Ionized magnesiumon 07-04-19 Magnesium Ionized ISE (Bld) [Moles/Vol] 0.72 mmol/L 0.45 - 0.74 mmol/L [facility] Comment on above: NEW REFERENCE RANGE LIVER PANELon 07-04-2023 Albumin [Mass/Vol] 3.6 g/dL Normal 3.2-5.3 [facility] Comment on above: Performed By: #### 6 873-4, 33572-9, 62058-1, CMP, 05591-6, HA1C, CBCA #### [facility] ([id number]) [address], [address] [place] [address] ALP [Catalytic activity/Vol] 82 U/L Normal 39-130 [facility] Comment on above: Performed By: #### 6 873-4, 84275-5, 10269-3, CMP, 29761-1, HA1C, CBCA #### [facility] ([id number]) [address], [address] [place] [address] ALT [Catalytic activity/Vol] 18 U/L Normal 0-31 [facility] Comment on above: Performed By: #### 6 873-4, 89251-4, 31242-0, CMP, 60700-7, HA1C, CBCA #### [facility] ([id number]) [address], [address] [place] [address] AST [Catalytic activity/Vol] 18 U/L Normal 0-41 [facility] Comment on above: Performed By: #### 6 873-4, 15505-7, 13037-1, CMP, 98196-8, HA1C, CBCA #### [facility] ([id number]) [address], [address] [place] [address] Bilirubin [Mass/Vol] 0.5 mg/dL Normal 0.3-1.2 [facility] Comment on above: Performed By: #### 6 873-4, 65082-6, 59657-0, CMP, 46226-1, HA1C, CBCA #### [facility] ([id number]) [address] [place] [address] Bilirubin.direct [Mass/Vol] 0.0 mg/dL Normal 0.0-0.4 [facility] Comment on above: Performed By: #### 6 873-4, 04995-5, 90294-0, CMP, 28369-2, HA1C, CBCA #### [facility] ([id number]) [address] [place] [address] Protein [Mass/Vol] 6.4 g/dL Normal 6.0-8.0 [facility] Comment on above: Performed By: #### 6 873-4, 11048-9, 63054-5, CMP, 12748-9, HA1C, CBCA #### [facility] ([id number]) [address], [address] [place] [address] Laboratory - Chemistry and C hemistry - challengeon 07-04-2023 Phosphate [Mass/Vol] 2.0 mg/dL Low 2.4-4.9 [facility] Comment on above: Performed By: #### 6 873-4, 92942-4, 04488-1, CMP, 24803-4, HA1C, CBCA #### [facility] ([id number]) [address], [address] [place] [address] MAGNESIUMon 07-04-2023 Magnesium [Mass/Vol] 1.5 mg/dL Low 1.8-2.6 [facility] Comment on above: Performed By: #### 6 873-4, 88539-2, 74459-7, CMP, 73327-4, HA1C, CBCA #### [facility] ([id number]) [address], [address] [place] [address] Magnesiumon 07-04-2023 Magnesium [Mass/Vol] 1.5 mg/dL Low 1.8 - 2 .6 mg/dL [facility] Magnesium Ionized ISE (Bld) [Moles/Vol]on 07-04-2023 Magnesium [Moles/Vol] 0.72 mmol/L Normal 0.45-0.74 [facility] Comment on above: Result Comment: NEW REFERENCE RANGE Performed By: #### 6 873-4, 74407-9, 55104-8, CMP, 67901-6, HA1C, CBCA #### [facility] ([id number]) [address], [address] [place] [address] [facility] No Panel Informationon 07-04 Interpretation and review of laboratory results Abnormal [facility] Interpretation and review of laboratory results Abnormal [facility] PHOSPHORUSon 07-04-2023 Phosphate [Mass/Vol] 1.5 mg/dL Low 2.4-4.9 [facility] Comment on above: Performed By: #### 6 873-4, 24117-6, 78614-8, CMP, 52449-4, HA1C, CBCA #### [facility] ([id number]) [address], [address] [place] [address] Phosphate [Mass/Vol] mg/dL Critically low 2.4-4.9 [facility] Comment on above: Performed By: #### 6 873-4, 49943-0, 31906-0, CMP, 78983-1, HA1C, CBCA #### [facility] ([id number]) [address], [address] [place] [address] Phosphate [Mass/Vol] 1.1 mg/dL Low 2.4-4.9 [facility] Comment on above: Performed By: #### 6 873-4, 73062-0, 12586-8, CMP, 58042-4, HA1C, CBCA #### [facility] ([id number]) [address], [address] [place] [address] Phosphate [Mass/Vol]on 07-04 Interpretation and review of laboratory results Abnormal [facility] Interpretation and review of laboratory results Abnormal [facility] Phosphoruson 07-04-2023 Phosphate [Mass/Vol] mg/dL Critically low 2.4 - 4.9 mg/dL [facility] Phosphate [Mass/Vol] 1.1 mg/dL Low 2.4 - 4 .9 mg/dL [facility] VENOUS BLOOD GASon CAMI'S TEST Normal [facility] Comment on above: Performed By: #### 6 873-4, 43254-5, 99371-7, CMP, 45328-1, HA1C, CBCA #### [facility] ([id number]) [address], [address] [place] [address] Base excess Calc (Bld) [Moles/Vol] 2.0 mmol/L Normal 0.0-2.0 [facility] Comment on above: Performed By: #### 6 873-4, 87564-9, 97323-5, CMP, 93916-6, HA1C, CBCA #### [facility] ([id number]) [address], [address] [place] [address] Body temperature 98.6 [degF] Normal 37.[address] [facility] Comment on above: Performed By: #### 6 873-4, 66274-7, 80435-1, CMP, 52799-4, HA1C, CBCA #### [facility] ([id number]) [address], [address] [place] [address] HCO3 (Bld) [Moles/Vol] 26.7 mmol/L High 20.0-24.0 [facility] Comment on above: Performed By: #### 6 873-4, 12278-8, 76435-0, CMP, 93870-2, HA1C, CBCA #### [facility] ([id number]) [address], [address] [place] [address] Oxygen saturation in Blood 43.0 % Low >80.0 [facility] Comment on above: Performed By: #### 6 873-4, 99388-7, 06935-7, CMP, 47089-0, HA1C, CBCA #### [facility] ([id number]) [address], [address] [place] [address] OXYGEN SOURCE RoomAir Normal [facility] Comment on above: Performed By: #### 6 873-4, 61850-6, 89675-8, CMP, 99992-7, HA1C, CBCA #### [facility] ([id number]) [address], [address] [place] [address] PCO2, VENOUS 43.5 MMHG Normal 35-50 [facility] Comment on above: Performed By: #### 6 873-4, 35761-5, 27960-2, CMP, 44328-1, HA1C, CBCA #### [facility] ([id number]) [address], [address] [place] [address] PH, VENOUS 7.397 Normal 7.320-7.420 [facility] Comment on above: Performed By: #### 6 873-4, 82319-8, 31173-4, CMP, 76079-7, HA1C, CBCA #### [facility] ([id number]) [address], [address] [place] [address] PO2, VENOUS 24 MMHG Low 30-50 [facility] Comment on above: Performed By: #### 6 873-4, 73356-3, 16257-8, CMP, 82056-3, HA1C, CBCA #### [facility] ([id number]) [address], [address] [place] [address] SAMPLE SITE N/A Normal [facility] Comment on above: Performed By: #### 6 873-4, 49689-8, 03263-3, CMP, 70158-0, HA1C, CBCA #### [facility] ([id number]) [address], [address] [place] [address] SAMPLE TYPE VENOUS Normal [facility] Comment on above: Performed By: #### 6 873-4, 26669-8, 89795-5, CMP, 55555-1, HA1C, CBCA #### [facility] ([id number]) [address], [address] [place] [address] Beta hydroxybutyrate [Moles/ Vol]on 07-03-2023 BetaHydroxybutyrate 1.23 mmol/L High 0.02-0.27 [facility] Comment on above: Performed By: #### 6 873-4, 10255-3, 56932-1, CMP, 59336-8, HA1C, CBCA #### [facility] ([id number]) [address], [address] [place] [address] BetaHydroxybutyrate 2.65 mmol/L High 0.02-0.27 [facility] Comment on above: Performed By: #### 6 873-4, 50203-1, 61500-2, CMP, 99700-0, HA1C, CBCA #### [facility] ([id number]) [address], [address] [place] [address] Interpretation and review of laboratory results Abnormal [facility] BetaHydroxybutyrate 2.84 mmol/L High 0.02-0.27 [facility] Comment on above: Performed By: #### 6 873-4, 13545-3, 45086-5, CMP, 84820-9, HA1C, CBCA #### [facility] ([id number]) [address], [address] [place] [address] BetaHydroxybutyrateon 2023 Beta hydroxybutyrate [Moles/Vol] 1.23 mmol/L High 0.02 - 0.27 mmol/L [facility] Beta hydroxybutyrate [Moles/Vol] 2.65 mmol/L High 0.02 - 0.27 mmol/L [facility] Beta hydroxybutyrate [Moles/Vol] 2.84 mmol/L High 0.02 - 0.27 mmol/L [facility] CBC AND AUTO DIFFon 07-03-19 ABSOLUTE BASOPHIL 0.1 X10E9/L Normal 0.0-0.2 [facility] Comment on above: Performed By: #### 6 873-4, 38088-2, 64449-0, CMP, 83082-3, HA1C, CBCA #### [facility] ([id number]) [address], [address] [place] [address] ABSOLUTE NEUTROPHIL 11.0 X10E9/L High 1.5-6.6 [facility] Comment on above: Performed By: #### 6 873-4, 52026-5, 27459-2, CMP, 65856-1, HA1C, CBCA #### [facility] ([id number]) [address], [address] [place] [address] Basophils/100 WBC (Bld) 0.6 % Normal [facility] Comment on above: Performed By: #### 6 873-4, 59359-6, 46058-5, CMP, 02216-7, HA1C, CBCA #### [facility] ([id number]) [address], [address] [place] [address] Eosinophils (Bld) [#/Vol] 0.0 10*3/uL Normal 0.0-0.4 [facility] Comment on above: Performed By: #### 6 873-4, 61650-0, 47017-0, CMP, 20308-1, HA1C, CBCA #### [facility] ([id number]) [address], [address] [place] [address] Eosinophils/100 WBC (Bld) 0.0 % Normal [facility] Comment on above: Performed By: #### 6 873-4, 47548-5, 99265-9, CMP, 78165-0, HA1C, CBCA #### [facility] ([id number]) [address] [address] Erythrocyte distribution width (RBC) [Ratio] 14.8 % Normal 11.5-15.0 [facility] Comment on above: Performed By: #### 6 873-4, 08833-7, 87146-9, CMP, 96948-3, HA1C, CBCA #### [facility] ([id number]) [address] [place] [address] Hematocrit (Bld) [Volume fraction] 33.7 % Low 35-47 [facility] Comment on above: Performed By: #### 6 873-4, 99634-4, 24474-1, CMP, 31199-5, HA1C, CBCA #### [facility] ([id number]) [address] [address] [facility] [address] [place] [address] Hemoglobin (Bld) [Mass/Vol] 10.8 g/dL Low 11.7-15.5 [facility] Comment on above: Performed By: #### 6 873-4, 33481-5, 73026-6, CMP, 59664-5, HA1C, CBCA #### [facility] ([id number]) [address] [address] Lymphocytes (Bld) [#/Vol] 0.5 10*3/uL Low 1.0-3.5 [facility] Comment on above: Performed By: #### 6 873-4, 28397-6, 48594-7, CMP, 66915-7, HA1C, CBCA #### [facility] ([id number]) [address], [address] [place] [address] Lymphocytes/100 WBC (Bld) 4.1 % Normal [facility] Comment on above: Performed By: #### 6 873-4, 75390-4, 52376-7, CMP, 15320-8, HA1C, CBCA #### [facility] ([id number]) [address], [facility] [address] [place] [address] MCH (RBC) [Entitic mass] 25.4 pg Low 27-34 [facility] Comment on above: Performed By: #### 6 873-4, 84300-7, 00444-9, CMP, 38286-7, HA1C, CBCA #### [facility] ([id number]) [address], [address] [place] [address] MCHC (RBC) [Mass/Vol] 32.2 g/dL Normal 32-36 [facility] Comment on above: Performed By: #### 6 873-4, 42734-5, 56770-6, CMP, 01717-3, HA1C, CBCA #### [facility] ([id number]) [address], [address] [place] [address] MCV (RBC) [Entitic vol] 79 fL Low 80-100 P [facility] Comment on above: Performed By: #### 6 873-4, 66700-1, 15262-7, CMP, 27324-4, HA1C, CBCA #### [facility] ([id number]) [address] [address] [place] [address] Monocytes (Bld) [#/Vol] 0.9 10*3/uL Normal 0-0.9 [facility] Comment on above: Performed By: #### 6 873-4, 71940-8, 44381-8, CMP, 09946-5, HA1C, CBCA #### [facility] ([id number]) [address], [address] [place] [address] Monocytes/100 WBC (Bld) 7.0 % Normal P [facility] Comment on above: Performed By: #### 6 873-4, 79327-4, 29616-6, CMP, 57303-6, HA1C, CBCA #### [facility] ([id number]) [address], [address] [place] [address] Neutrophils/100 WBC (Bld) 88.3 % Normal [facility] Comment on above: Performed By: #### 6 873-4, 90812-7, 10966-8, CMP, 04430-9, HA1C, CBCA #### [facility] ([id number]) [address], [address] [place] [address] Platelet mean volume (Bld) [Entitic vol] 7.7 fL Normal 7-12 [facility] Comment on above: Performed By: #### 6 873-4, 11591-9, 35119-6, CMP, 64437-6, HA1C, CBCA #### [facility] ([id number]) [address], [address] [place] [address] Platelets (Bld) [#/Vol] 231 10*3/uL Normal 150-450 [facility] Comment on above: Performed By: #### 6 873-4, 91783-2, 43338-0, CMP, 27186-3, HA1C, CBCA #### [facility] ([id number]) [address], [address] [place] [address] RBC COUNT 4.26 X10E12/L Normal 3.80-5.20 [facility] Comment on above: Performed By: #### 6 873-4, 77020-6, 01932-9, CMP, 31420-5, HA1C, CBCA #### [facility] ([id number]) [address], [address] [place] [address] WBC (Bld) [#/Vol] 12.4 10*3/uL High 4.0-11.0 [facility] Comment on above: Performed By: #### 6 873-4, 50529-5, 44675-6, CMP, 44752-6, HA1C, CBCA #### [facility] ([id number]) [address] [place] [address] CBC auto differentialon Basophils (Bld) [#/Vol] 0.1 10*3/uL [facility] Basophils/100 WBC (Bld) 0.6 % P [facility] Eosinophils (Bld) [#/Vol] 0.0 10*3/uL [facility] Eosinophils/100 WBC (Bld) 0.0 % [facility] Erythrocyte distribution width (RBC) [Ratio] 14.8 % 11.5 - 15.0 % [facility] Hematocrit (Bld) [Volume fraction] 33.7 % Low 35 - 47 % [facility] Hemoglobin (Bld) [Mass/Vol] 10.8 g/dL Low 11.7 - 15.5 g/dL [facility] Interpretation and review of laboratory results Abnormal [facility] Lymphocytes (Bld) [#/Vol] 0.5 10*3/uL Low [facility] Lymphocytes/100 WBC (Bld) 4.1 % [facility] MCH (RBC) [Entitic mass] 25.4 pg Low 27 - 34 pg [facility] MCHC (RBC) [Mass/Vol] 32.2 g/dL 32 - 36 g/dL [facility] MCV (RBC) [Entitic vol] 79 fL Low 80 - 100 fL [facility] Monocytes (Bld) [#/Vol] 0.9 10*3/uL [facility] Monocytes/100 WBC (Bld) 7.0 % [facility] Neutrophils (Bld) [#/Vol] 11.0 10*3/uL High [facility] Neutrophils/100 WBC (Bld) 88.3 % [facility] Platelet mean volume (Bld) [Entitic vol] 7.7 fL 7 - 12 fL [facility] Platelets (Bld) [#/Vol] 231 10*3/uL [facility] RBC (Bld) [#/Vol] 4.26 10*6/uL [facility] WBC corrected for nucl RBC Auto (Bld) [#/Vol] 12.4 High [facility] COMPREHENSIVE METABOLIC PANE [employer] 07-03-2023 Albumin [Mass/Vol] 3.4 g/dL Normal 3.2-5.3 [facility] Comment on above: Performed By: #### 6 873-4, 93804-8, 09738-7, CMP, 07587-9, HA1C, CBCA #### [facility] ([id number]) [address], [address] [place] [address] ALP [Catalytic activity/Vol] 80 U/L Normal 39-130 [facility] Comment on above: Performed By: #### 6 873-4, 11692-1, 41274-2, CMP, 89299-5, HA1C, CBCA #### [facility] ([id number]) [address], [address] [place] [address] ALT [Catalytic activity/Vol] 14 U/L Normal 0-31 [facility] Comment on above: Performed By: #### 6 873-4, 35288-4, 01743-8, CMP, 01830-4, HA1C, CBCA #### [facility] ([id number]) [address], [address] [place] [address] Anion gap [Moles/Vol] 10 mmol/L Normal 5-15 [facility] Comment on above: Performed By: #### 6 873-4, 17040-9, 65835-7, CMP, 15258-3, HA1C, CBCA #### [facility] ([id number]) [address], [address] [place] [address] AST [Catalytic activity/Vol] 23 U/L Normal 0-41 [facility] Comment on above: Performed By: #### 6 873-4, 12105-6, 55386-0, CMP, 47447-8, HA1C, CBCA #### [facility] ([id number]) [address], [address] [place] [address] Bilirubin [Mass/Vol] 0.3 mg/dL Normal 0.3-1.2 [facility] Comment on above: Performed By: #### 6 873-4, 89622-0, 79704-1, CMP, 38787-8, HA1C, CBCA #### [facility] ([id number]) [address], [address] [place] [address] Calcium [Mass/Vol] 6.6 mg/dL Critically low 8.5-10.5 [facility] Comment on above: Performed By: #### 6 873-4, 85889-0, 70077-0, CMP, 36273-9, HA1C, CBCA #### [facility] ([id number]) [address], [address] [place] [address] Chloride [Moles/Vol] 117 mmol/L High 98-109 [facility] Comment on above: Performed By: #### 6 873-4, 70614-4, 08083-6, CMP, 81622-4, HA1C, CBCA #### [facility] ([id number]) [address], [address] [place] [address] CO2 [Moles/Vol] 12 mmol/L Low 22-32 [facility] Comment on above: Performed By: #### 6 873-4, 83650-3, 36350-1, CMP, 44577-3, HA1C, CBCA #### [facility] ([id number]) [address], [address] [place] [address] Creatinine [Mass/Vol] 0.53 mg/dL Normal 0.40-1.00 [facility] Comment on above: Result Comment: METH OD TRACEABLE TO IDMS STANDARD Performed By: #### 6 873-4, 28476-8, 24146-7, CMP, 36654-4, HA1C, CBCA #### [facility] ([id number]) [address], [address] [place] [address] eGFR (CKD-EPI) NON-RACE DEPENDENT >90 Normal >59 [facility] Comment on above: Result Comment: Reported eGFR is based on the CKD-EPI 2020 equation that does not use a race coefficient. Performed By: #### 6 873-4, 79729-8, 71046-4, CMP, 44181-6, HA1C, CBCA #### [facility] ([id number]) [address], [address] [place] [address] Glucose [Mass/Vol] 214 mg/dL High 65-99 [facility] Comment on above: Performed By: #### 6 873-4, 15551-3, 52556-6, CMP, 98909-4, HA1C, CBCA #### [facility] ([id number]) [address], [address] [place] [address] Potassium [Moles/Vol] 3.7 mmol/L Normal 3.5-5.0 [facility] Comment on above: Performed By: #### 6 873-4, 41957-4, 24728-7, CMP, 08701-0, HA1C, CBCA #### [facility] ([id number]) [address], [address] [place] [address] Protein [Mass/Vol] 5.7 g/dL Low 6.0-8.0 [facility] Comment on above: Performed By: #### 6 873-4, 41085-5, 48329-3, CMP, 83059-7, HA1C, CBCA #### [facility] ([id number]) [address], [address] [place] [address] Sodium [Moles/Vol] 139 mmol/L Normal 134-146 [facility] Comment on above: Performed By: #### 6 873-4, 68948-5, 90503-2, CMP, 97575-2, HA1C, CBCA #### [facility] ([id number]) [address] [place] [address] Urea nitrogen [Mass/Vol] 8 mg/dL Normal 5-23 [facility] Comment on above: Performed By: #### 6 873-4, 47124-4, 82298-7, CMP, 73300-0, HA1C, CBCA #### [facility] ([id number]) [address] [place] [address] Calcium.ionized (Bld) [Mass/ Vol]on 07-03-2023 IONIZED CALCIUM 4.5 mg/dL Normal 4.5-5.3 [facility] Comment on above: Performed By: #### 6 873-4, 09652-7, 52220-9, CMP, 62616-6, HA1C, CBCA #### [facility] ([id number]) [address] [place] [address] [facility] IONIZED CALCIUM 4.3 mg/dL Low 4.5-5.3 [facility] Comment on above: Performed By: #### 6 873-4, 49624-9, 17128-8, CMP, 54611-3, HA1C, CBCA #### [facility] ([id number]) [address], [address] [place] [address] Interpretation and review of laboratory results Abnormal [facility] Cardiac echo study Procedure Ordered By: Dilan Navarrete on 07-03-2023 Aortic root 2.70 cm [employer] Work Phone: [phone] AV mean gradient 5.00 mmHg [employer] Work Phone: [phone] AV peak gradient 9.99 mmHg [employer] Work Phone: [phone] AV peak deep 158.00 cm/s [employer] Work Phone: [phone] AV Velocity Ratio 0.60 [employer] Work Phone: [phone] AV VTI 27.60 cm [employer] Work Phone: [phone] E wave deceleration time 194.00 msec [employer] Work Phone: [phone] E/A ratio 1.15 [employer] Work Phone: [phone] Echo EF Estimated 61 % [employer] Work Phone: [phone] 61 % [employer] Work Phone: [phone] 35 % 28 - 44 % [employer] Work Phone: [phone] Interventricular Septum Diastolic Thickness by 2D 11 cm [employer] Work Phone: [phone] IVS 1.10 cm 0.6 - 1.1 cm [employer] Work Phone: [phone] LA size 3.20 cm [employer] Work Phone: [phone] LA volume 40.30 cm3 [employer] Work Phone: [phone] LA Volume Index 23.4 mL/m2 [employer] Work Phone: [phone] Left Ventricle Mass [id number] g [employer] Work Phone: [phone] LV Diastolic Volume 115.00 mL [employer] Work Phone: [phone] LV ESV A2C 38.20 mL [employer] Work Phone: [phone] LV ESV A4C 39.60 mL [employer] Work Phone: [phone] LV RWT 2D 47.83 [employer] Work Phone: [phone] LV Systolic [facility] 44.40 [facility] Phone: [phone] LVIDd 4.60 cm 4.09 - 5.68 cm [facility] Work Phone: [phone] LVIDs 3.00 cm 2.42 - 3.67 cm [employer] Work Phone: [phone] LVOT peak deep 0.92 m/s [facility] Work Phone: [phone] LVOT peak VTI 16.50 cm [employer] Work Phone: [phone] MV Peak A Deep 76.60 cm/s [facility] Work Phone: [phone] MV Peak E Deep 87.80 cm/s [employer] Work Phone: [phone] MV pressure 1/2 time 57.00 ms [facility] [employer] [facility] Work Phone: [phone] MV TDI E' (medial) 7.29 cm/s [facility] Work Phone: [phone] MV valve area p 1/2 method 3.86 cm2 [employer] Work Phone: [phone] PW 1.10 cm 0.6 - 1.1 cm [employer] Work Phone: [phone] RV diastolic dimension (basal) 36.0 mm [employer] Work Phone: [phone] RV diastolic dimension (mid-ventricle) 31.0 cm [employer] Work Phone: [phone] RV diastolic length 62.0 cm [facility] [employer] Work Phone: [phone] RV Peak Systolic Pressure 24 mmHg [facility] Work Phone: [phone] TAPSE 2.46 cm [employer] Work Phone: [phone] TDI 10.30 cm/s [facility] Work Phone: [phone] TR peak gradient 21.72 mmHg [employer] Work Phone: [phone] TR Peak Deep 2.3 m/s [employer] Work Phone: [phone] ZLVIDD -0.46 [employer] Work Phone: [phone] ZLVIDS 0.05 [employer] Work Phone: [phone] [employer] Work Phone: [phone] Cardiac echo study Procedure on 07-03-2023 Left Ventricle: Left ventricle appears normal in size. There is borderline increased wall thickness/hypertroph y. Apical false tendon noted. Systolic function is normal with an ejection fraction of 60-65%. No segmental wall motion abnormalities. Normal diastolic function is present. Lateral E' is 10.30 cm/s. Medial E' is 7.29 cm/s. Left Atrium: Left atrium is normal in size. Left atrium volume index is normal. The left atrial volume index is 23.4 mL/m2. Right Ventricle: The right ventricular basal diameter is 36.0 mm. Systolic function is normal. Normal tricuspid annular plane systolic excursion. Aortic Valve: The aortic valve is trileaflet. The leaflets are mildly calcified. Tricuspid Valve: There is trace regurgitation. There is no evidence of tricuspid valve stenosis. RVSP calculated at 24 mmHg. Left Ventricle Left ventricle appears normal in size. There is borderline increased wall thickness/hypertroph y. Apical false tendon noted. Systolic function is normal with an ejection fraction of 60-65%. No segmental wall motion abnormalities. Normal diastolic function is present. Lateral E' is 10.30 cm/s. Medial E' is 7.29 cm/s. Right Ventricle The right ventricular basal diameter is 36.0 mm. Systolic function is normal. Normal tricuspid annular plane systolic excursion. Left Atrium Left atrium is normal in size. Left atrium volume index is normal. The left atrial volume index is 23.4 mL/m2. Right Atrium Right atrium is normal in size. IVC/SVC IVC is not well visualized. Mitral Valve The leaflets are mildly thickened. There is trace regurgitation. There is no evidence of mitral valve stenosis. Tricuspid Valve The leaflets are not thickened. There is trace regurgitation. There is no evidence of tricuspid valve stenosis. RVSP calculated at 24 mmHg. Aortic Valve The aortic valve is trileaflet. The leaflets are mildly calcified. There is no regurgitation or stenosis. Pulmonic Valve The leaflets are not thickened. There is trace regurgitation. There is no evidence of pulmonic valve stenosis. Ascending Aorta The aortic root is normal in size. Pericardium There is no pericardial effusion. Study Details A complete echo was performed using complete 2D. Overall the study quality was adequate. Wall Scoring Baseline Score Index: 1.00 The left ventricular wall motion is normal. [facility] Radiology Study observation (narrative) [facility] Comprehensive metabolic pane galileo 07-03-2023 Albumin [Mass/Vol] 3.4 g/dL 3.2 - 5.3 g/dL [facility] ALP [Catalytic activity/Vol] 80 U/L 39 - 130 U/L [facility] ALT No additional P-5'-P [Catalytic activity/Vol] 14 U/L 0 - 31 U/L [facility] Anion gap [Moles/Vol] 10 mmol/L 5 - 15 mmol/L [facility] AST [Catalytic activity/Vol] 23 U/L 0 - 41 U/L [facility] Bilirubin [Mass/Vol] 0.3 mg/dL 0.3 - 1 .2 mg/dL [facility] Calcium [Mass/Vol] 6.6 mg/dL Critically low 8.5 - 1 0.5 mg/dL [facility] Chloride [Moles/Vol] 117 mmol/L High 98 - 10 9 mmol/L [facility] CO2 [Moles/Vol] 12 mmol/L Low 22 - 32 mmol/L [facility] Creatinine [Mass/Vol] 0.53 mg/dL 0.40 - 1.00 mg/dL [facility] Comment on above: METHOD TRACEABLE TO IDNJ STANDARD eGFR (CKD-EPI)non-race dependent - PINF [facility] Comment on above: Reported eGFR is based on the CKD-EPI 2020 equation that does not use a race coefficient. Glucose [Mass/Vol] 214 mg/dL High 65 - 99 mg/dL [facility] Potassium [Moles/Vol] 3.7 mmol/L 3.5 - 5.0 mmol/L [facility] Protein [Mass/Vol] 5.7 g/dL Low 6.0 - 8.0 g/dL [facility] Sodium [Moles/Vol] 139 mmol/L 134 - 146 mmol/L [facility] Urea nitrogen [Mass/Vol] 8 mg/dL 5 - 23 mg/d L [facility] ELECTROLYTESon 07-03-2023 Anion gap [Moles/Vol] 7 mmol/L Normal 5-15 [facility] Comment on above: Performed By: #### 6 873-4, 72194-9, 50910-0, CMP, 21825-0, HA1C, CBCA #### [facility] ([id number]) [address], [address] [place] [address] Chloride [Moles/Vol] 108 mmol/L Normal 98-109 [facility] Comment on above: Performed By: #### 6 873-4, 99954-6, 71270-9, CMP, 71811-5, HA1C, CBCA #### [facility] ([id number]) [address], [address] [place] [address] CO2 [Moles/Vol] 20 mmol/L Low 22-32 [facility] Comment on above: Performed By: #### 6 873-4, 48224-5, 20254-7, CMP, 98695-4, HA1C, CBCA #### [facility] ([id number]) [address], [address] [place] [address] Potassium [Moles/Vol] 3.4 mmol/L Low 3.5-5.0 [facility] Comment on above: Performed By: #### 6 873-4, 06493-3, 68961-2, CMP, 93715-6, HA1C, CBCA #### [facility] ([id number]) [address], [address] [place] [address] Sodium [Moles/Vol] 135 mmol/L Normal 134-146 [facility] Comment on above: Performed By: #### 6 873-4, 92892-9, 13460-7, CMP, 83412-1, HA1C, CBCA #### [facility] ([id number]) [address], [address] [place] [address] Anion gap [Moles/Vol] 12 mmol/L Normal 5-15 [facility] Comment on above: Performed By: #### 6 873-4, 96365-9, 36029-8, CMP, 08325-3, HA1C, CBCA #### [facility] ([id number]) [address], [address] [place] [address] Chloride [Moles/Vol] 108 mmol/L Normal 98-109 [facility] Comment on above: Performed By: #### 6 873-4, 38508-0, 95017-5, CMP, 19862-4, HA1C, CBCA #### [facility] ([id number]) [address], [address] [place] [address] CO2 [Moles/Vol] 15 mmol/L Low 22-32 [facility] Comment on above: Performed By: #### 6 873-4, 60723-9, 43167-5, CMP, 31438-3, HA1C, CBCA #### [facility] ([id number]) [address], [address] [place] [address] Potassium [Moles/Vol] 3.7 mmol/L Normal 3.5-5.0 [facility] Comment on above: Performed By: #### 6 873-4, 52030-9, 00374-7, CMP, 56823-2, HA1C, CBCA #### [facility] ([id number]) [address], [address] [place] [address] Sodium [Moles/Vol] 135 mmol/L Normal 134-146 [facility] Comment on above: Performed By: #### 6 873-4, 15127-3, 18200-5, CMP, 22703-6, HA1C, CBCA #### [facility] ([id number]) [address], [address] [place] [address] Anion gap [Moles/Vol] 8 mmol/L Normal 5-15 [facility] Comment on above: Performed By: #### 6 873-4, 93321-2, 88392-3, CMP, 97853-5, HA1C, CBCA #### [facility] ([id number]) [address], [address] [place] [address] Chloride [Moles/Vol] 108 mmol/L Normal 98-109 [facility] Comment on above: Performed By: #### 6 873-4, 80917-3, 43854-7, CMP, 12925-3, HA1C, CBCA #### [facility] ([id number]) [address], [address] [place] [address] CO2 [Moles/Vol] 18 mmol/L Low 22-32 [facility] Comment on above: Performed By: #### 6 873-4, 23281-7, 37998-3, CMP, 88121-4, HA1C, CBCA #### [facility] ([id number]) [address], [address] [place] [address] Potassium [Moles/Vol] 3.7 mmol/L Normal 3.5-5.0 [facility] Comment on above: Performed By: #### 6 873-4, 90386-2, 59744-3, CMP, 30879-5, HA1C, CBCA #### [facility] ([id number]) [address], [address] [place] [address] Sodium [Moles/Vol] 134 mmol/L Normal 134-146 [facility] Comment on above: Performed By: #### 6 873-4, 24768-8, 38967-5, CMP, 07546-1, HA1C, CBCA #### [facility] ([id number]) [address], [address] [place] [address] Anion gap [Moles/Vol] 8 mmol/L Normal 5-15 [facility] Comment on above: Performed By: #### 6 873-4, 10157-1, 65089-7, CMP, 35002-4, HA1C, CBCA #### [facility] ([id number]) [address], [address] [place] [address] Chloride [Moles/Vol] 116 mmol/L High 98-109 [facility] Comment on above: Performed By: #### 6 873-4, 88628-3, 68581-8, CMP, 72339-3, HA1C, CBCA #### [facility] ([id number]) [address], [address] [place] [address] CO2 [Moles/Vol] 15 mmol/L Low 22-32 [facility] Comment on above: Performed By: #### 6 873-4, 29783-9, 81183-8, CMP, 62143-7, HA1C, CBCA #### [facility] ([id number]) [address], [address] [place] [address] Potassium [Moles/Vol] 3.0 mmol/L Low 3.5-5.0 [facility] Comment on above: Performed By: #### 6 873-4, 17941-9, 88203-9, CMP, 67104-5, HA1C, CBCA #### [facility] ([id number]) [address], [address] [place] [address] Sodium [Moles/Vol] 139 mmol/L Normal 134-146 [facility] Comment on above: Performed By: #### 6 873-4, 50620-8, 53582-7, CMP, 02656-8, HA1C, CBCA #### [facility] ([id number]) [address], [address] [place] [address] Anion gap [Moles/Vol] 8 mmol/L Normal 5-15 [facility] Comment on above: Performed By: #### 6 873-4, 58768-8, 32260-1, CMP, 92105-9, HA1C, CBCA #### [facility] ([id number]) [address], [address] [place] [address] Chloride [Moles/Vol] 121 mmol/L High 98-109 [facility] Comment on above: Performed By: #### 6 873-4, 01885-1, 07822-9, CMP, 98992-2, HA1C, CBCA #### [facility] ([id number]) [address], [address] [place] [address] CO2 [Moles/Vol] 13 mmol/L Low 22-32 [facility] Comment on above: Performed By: #### 6 873-4, 18675-1, 32914-3, CMP, 64649-2, HA1C, CBCA #### [facility] ([id number]) [address], [address] [place] [address] Potassium [Moles/Vol] 3.2 mmol/L Low 3.5-5.0 [facility] Comment on above: Performed By: #### 6 873-4, 03526-6, 82273-3, CMP, 93584-6, HA1C, CBCA #### [facility] ([id number]) [address], [address] [place] [address] Sodium [Moles/Vol] 142 mmol/L Normal 134-146 [facility] Comment on above: Performed By: #### 6 873-4, 30621-0, 67491-3, CMP, 46023-9, HA1C, CBCA #### [facility] ([id number]) [address], [address] [place] [address] Electrolyte panelon 07-03-19 Anion gap [Moles/Vol] 7 mmol/L 5 - 15 mmol/L [facility] Chloride [Moles/Vol] 108 mmol/L 98 - 10 9 mmol/L [facility] CO2 [Moles/Vol] 20 mmol/L Low 22 - 32 mmol/L [facility] Potassium [Moles/Vol] 3.4 mmol/L Low 3.5 - 5.0 mmol/L [facility] Sodium [Moles/Vol] 135 mmol/L 134 - 146 mmol/L [facility] Anion gap [Moles/Vol] 12 mmol/L 5 - 15 mmol/L [facility] Chloride [Moles/Vol] 108 mmol/L 98 - 10 9 mmol/L [facility] CO2 [Moles/Vol] 15 mmol/L Low 22 - 32 mmol/L [facility] Potassium [Moles/Vol] 3.7 mmol/L 3.5 - 5.0 mmol/L [facility] Sodium [Moles/Vol] 135 mmol/L 134 - 146 mmol/L [facility] Anion gap [Moles/Vol] 8 mmol/L 5 - 15 mmol/L [facility] Chloride [Moles/Vol] 108 mmol/L 98 - 10 9 mmol/L [facility] CO2 [Moles/Vol] 18 mmol/L Low 22 - 32 mmol/L [facility] Potassium [Moles/Vol] 3.7 mmol/L 3.5 - 5.0 mmol/L [facility] Sodium [Moles/Vol] 134 mmol/L 134 - 146 mmol/L [facility] Anion gap [Moles/Vol] 8 mmol/L 5 - 15 mmol/L [facility] Chloride [Moles/Vol] 116 mmol/L High 98 - 10 9 mmol/L [facility] CO2 [Moles/Vol] 15 mmol/L Low 22 - 32 mmol/L [facility] Interpretation and review of laboratory results Abnormal [facility] Potassium [Moles/Vol] 3.0 mmol/L Low 3.5 - 5.0 mmol/L [facility] Sodium [Moles/Vol] 139 mmol/L 134 - 146 mmol/L [facility] Anion gap [Moles/Vol] 8 mmol/L 5 - 15 mmol/L [facility] Chloride [Moles/Vol] 121 mmol/L High 98 - 10 9 mmol/L [facility] CO2 [Moles/Vol] 13 mmol/L Low 22 - 32 mmol/L [facility] Interpretation and review of laboratory results Abnormal [facility] Potassium [Moles/Vol] 3.2 mmol/L Low 3.5 - 5.0 mmol/L [facility] Sodium [Moles/Vol] 142 mmol/L 134 - 146 mmol/L [facility] Glucose Glucometer (BldC) [M ass/Vol]on 07-03-2023 Glucose [Mass/Vol] 238 mg/dL High 65 - 99 mg/dL [facility] Interpretation and review of laboratory results Abnormal [facility] Glucose [Mass/Vol] 251 mg/dL High 65-99 [facility] Glucose [Mass/Vol] 265 mg/dL High 65 - 99 mg/dL [facility] Interpretation and review of laboratory results Abnormal [facility] Glucose [Mass/Vol] 243 mg/dL High 65-99 [facility] Glucose [Mass/Vol] 241 mg/dL High 65-99 [facility] Glucose [Mass/Vol] 251 mg/dL High 65 - 99 mg/dL [facility] Interpretation and review of laboratory results Abnormal [facility] Glucose [Mass/Vol] 243 mg/dL High 65 - 99 mg/dL [facility] Interpretation and review of laboratory results Abnormal [facility] Glucose [Mass/Vol] 171 mg/dL High 65-99 [facility] Glucose [Mass/Vol] 241 mg/dL High 65 - 99 mg/dL [facility] Interpretation and review of laboratory results Abnormal [facility] Glucose [Mass/Vol] 171 mg/dL High 65 - 99 mg/dL [facility] Interpretation and review of laboratory results Abnormal [facility] Glucose [Mass/Vol] 186 mg/dL High 65-99 [facility] Glucose [Mass/Vol] 186 mg/dL High 65 - 99 mg/dL [facility] Interpretation and review of laboratory results Abnormal [facility] Glucose [Mass/Vol] 130 mg/dL High 65-99 [facility] Interpretation and review of laboratory results Abnormal [facility] Glucose [Mass/Vol] 149 mg/dL High 65-99 [facility] Glucose [Mass/Vol] 200 mg/dL High 65-99 [facility] Glucose [Mass/Vol] 149 mg/dL High 65 - 99 mg/dL [facility] Interpretation and review of laboratory results Abnormal [facility] Glucose [Mass/Vol] 215 mg/dL High 65-99 [facility] Glucose [Mass/Vol] 253 mg/dL High 65-99 [facility] Interpretation and review of laboratory results Abnormal [facility] Glucose [Mass/Vol] 200 mg/dL High 65 - 99 mg/dL [facility] Interpretation and review of laboratory results Abnormal [facility] Glucose [Mass/Vol] 215 mg/dL High 65 - 99 mg/dL [facility] Interpretation and review of laboratory results Abnormal [facility] Glucose [Mass/Vol] 219 mg/dL High 65-99 [facility] Glucose [Mass/Vol] 223 mg/dL High 65-99 [facility] Glucose [Mass/Vol] 219 mg/dL High 65 - 99 mg/dL [facility] Interpretation and review of laboratory results Abnormal [facility] Glucose [Mass/Vol] 160 mg/dL High 65-99 [facility] Glucose [Mass/Vol] 223 mg/dL High 65 - 99 mg/dL [facility] Interpretation and review of laboratory results Abnormal [facility] Glucose [Mass/Vol] 154 mg/dL High 65-99 [facility] Glucose [Mass/Vol] 160 mg/dL High 65 - 99 mg/dL [facility] Interpretation and review of laboratory results Abnormal [facility] Glucose [Mass/Vol] 186 mg/dL High 65-99 [facility] Glucose [Mass/Vol] 154 mg/dL High 65 - 99 mg/dL [facility] Interpretation and review of laboratory results Abnormal [facility] Glucose [Mass/Vol] 212 mg/dL High 65-99 [facility] Glucose [Mass/Vol] 186 mg/dL High 65 - 99 mg/dL [facility] Interpretation and review of laboratory results Abnormal [facility] Glucose [Mass/Vol] 233 mg/dL High 65-99 [facility] Glucose [Mass/Vol] 212 mg/dL High 65 - 99 mg/dL [facility] Interpretation and review of laboratory results Abnormal [facility] Ionized calciumon 07-03-2023 Calcium.ionized (Bld) [Mass/Vol] 4.5 mg/dL 4.5 - 5.3 mg/dL [facility] Calcium.ionized (Bld) [Mass/Vol] 4.3 mg/dL Low 4.5 - 5.3 mg/dL [facility] MAGNESIUMon 07-03-2023 Magnesium [Mass/Vol] 1.8 mg/dL Normal 1.8-2.6 [facility] Comment on above: Performed By: #### 6 873-4, 60553-7, 92881-0, CMP, 44693-5, HA1C, CBCA #### [facility] ([id number]) [address], [address] [place] [address] Magnesiumon 07-03-2023 Magnesium [Mass/Vol] 1.8 mg/dL 1.8 - 2 .6 mg/dL [facility] No Panel Informationon 07-03 Interpretation and review of laboratory results Abnormal [facility] Interpretation and review of laboratory results Abnormal [facility] Interpretation and review of laboratory results Abnormal [facility] Interpretation and review of laboratory results Abnormal [facility] Interpretation and review of laboratory results Abnormal [facility] Interpretation and review of laboratory results Abnormal [facility] PHOSPHORUSon 07-03-2023 Phosphate [Mass/Vol] 1.1 mg/dL Low 2.4-4.9 [facility] Comment on above: Performed By: #### 6 873-4, 27708-7, 84197-8, CMP, 34121-3, HA1C, CBCA #### [facility] ([id number]) [address], [address] [place] [address] Phosphate [Mass/Vol] 2.2 mg/dL Low 2.4-4.9 [facility] Comment on above: Performed By: #### 6 873-4, 38119-6, 10565-1, CMP, 16616-8, HA1C, CBCA #### [facility] ([id number]) [address], [address] [place] [address] Phosphate [Mass/Vol] 1.9 mg/dL Low 2.4-4.9 [facility] Comment on above: Performed By: #### 6 873-4, 02088-7, 21022-6, CMP, 22706-1, HA1C, CBCA #### [facility] ([id number]) [address], [address] [place] [address] Phosphate [Mass/Vol] mg/dL Critically low 2.4-4.9 [facility] Comment on above: Performed By: #### 6 873-4, 53471-2, 46624-1, CMP, 25961-5, HA1C, CBCA #### [facility] ([id number]) [address], [address] [place] [address] Phosphate [Mass/Vol] 2.2 mg/dL Low 2.4-4.9 [facility] Comment on above: Performed By: #### 6 873-4, 72758-2, 87233-0, CMP, 83389-3, HA1C, CBCA #### [facility] ([id number]) [address], [address] [place] [address] Phosphate [Mass/Vol] mg/dL Critically low 2.4-4.9 [facility] Comment on above: Performed By: #### 6 873-4, 13836-5, 83054-5, CMP, 01978-9, HA1C, CBCA #### [facility] ([id number]) [address], [address] [place] [address] Phosphate [Mass/Vol]on 07-03 Interpretation and review of laboratory results Abnormal [facility] Phosphoruson 07-03-2023 Phosphate [Mass/Vol] 1.1 mg/dL Low 2.4 - 4 .9 mg/dL [facility] Phosphate [Mass/Vol] 2.2 mg/dL Low 2.4 - 4 .9 mg/dL [facility] Phosphate [Mass/Vol] 1.9 mg/dL Low 2.4 - 4 .9 mg/dL [facility] Phosphate [Mass/Vol] mg/dL Critically low 2.4 - 4.9 mg/dL [facility] Phosphate [Mass/Vol] 2.2 mg/dL Low 2.4 - 4 .9 mg/dL [facility] Phosphate [Mass/Vol] mg/dL Critically low 2.4 - 4.9 mg/dL [facility] TROPONIN Ion 07-03-2023 Troponin I.cardiac [Mass/Vol] 0.69 ng/mL Critically high 0.00-0.04 [facility] Comment on above: Result Comment: Concentrations greater than or equal to 0.05 ng/ml are considered elevated. Elevations of Troponin may be due to causes other than myocardial ischemia. Recommend serial Troponin testing be performed. Performed By: #### 6 873-4, 99796-7, 11770-3, CMP, 12658-8, HA1C, CBCA #### [facility] ([id number]) [address], [address] [place] [address] Troponin I.cardiac [Mass/Vol] 0.75 ng/mL Critically high 0.00-0.04 [facility] Comment on above: Result Comment: Concentrations greater than or equal to 0.05 ng/ml are considered elevated. Elevations of Troponin may be due to causes other than myocardial ischemia. Recommend serial Troponin testing be performed. Performed By: #### 6 873-4, 20457-5, 65434-4, CMP, 57538-6, HA1C, CBCA #### [facility] ([id number]) [facility], [address] [address] Troponin I.cardiac [Mass/Vol] 1.53 ng/mL Critically high 0.00-0.04 [facility] Comment on above: Result Comment: Concentrations greater than or equal to 0.05 ng/ml are considered elevated. Elevations of Troponin may be due to causes other than myocardial ischemia. Recommend serial Troponin testing be performed. Performed By: #### 6 873-4, 53528-4, 73511-2, CMP, 61931-5, HA1C, CBCA #### [facility] ([id number]) [address], [facility] [address] [place] [address] Troponin I.cardiac [Mass/Vol] 1.80 ng/mL Critically high 0.00-0.04 [facility] Comment on above: Result Comment: Concentrations greater than or equal to 0.05 ng/ml are considered elevated. Elevations of Troponin may be due to causes other than myocardial ischemia. Recommend serial Troponin testing be performed. Performed By: #### 6 873-4, 47702-2, 23612-9, CMP, 44107-1, HA1C, CBCA #### [facility] ([id number]) [address] [facility], [address] [place] [address] Troponin Ion 07-03-2023 Troponin I.cardiac [Mass/Vol] 0.69 ng/mL Critically high 0.00 - 0.04 ng/mL [facility] Comment on above: Concentrations greater than or equal to 0.05 ng/ml are considered elevated. Elevations of Troponin may be due to causes other than myocardial ischemia. Recommend serial Troponin testing be performed. Troponin I.cardiac [Mass/Vol] 0.75 ng/mL Critically high 0.00 - 0.04 ng/mL [employer] [facility] Comment on above: Concentrations greater than or equal to 0.05 ng/ml are considered elevated. Elevations of Troponin may be due to causes other than myocardial ischemia. Recommend serial Troponin testing be performed. Troponin I.cardiac [Mass/Vol] 1.53 ng/mL Critically high 0.00 - 0.04 ng/mL [employer] Comment on above: Concentrations greater than or equal to 0.05 ng/ml are considered elevated. Elevations of Troponin may be due to causes other than myocardial ischemia. Recommend serial Troponin testing be performed. Troponin I.cardiac [Mass/Vol] 1.80 ng/mL Critically high 0.00 - 0.04 ng/mL [facility] Comment on above: Concentrations greater than or equal to 0.05 ng/ml are considered elevated. Elevations of Troponin may be due to causes other than myocardial ischemia. Recommend serial Troponin testing be performed. Troponin I.cardiac [Mass/Vol ]on 07-03-2023 Interpretation and review of laboratory results Abnormal [facility] Interpretation and review of laboratory results Abnormal [facility] Beta hydroxybutyrate [Moles/ Vol]on 07-02-2023 BetaHydroxybutyrate 3.34 mmol/L High 0.02-0.27 [facility] Comment on above: Performed By: #### 6 873-4, ELEC, 2777-1 ####[facility] ([id number])[address] [facility] [address], [address] [place] [address] BetaHydroxybutyrate 8.59 mmol/L High 0.02-0.27 [facility] Comment on above: Performed By: #### 6 873-4, 04235-7, 00428-6, CMP, 89303-3, HA1C, CBCA #### [facility] ([id number]) [address], [address] [place] [address] BetaHydroxybutyrateon 2023 Beta hydroxybutyrate [Moles/Vol] 3.34 mmol/L High 0.02 - 0.27 mmol/L [facility] Beta hydroxybutyrate [Moles/Vol] 8.59 mmol/L High 0.02 - 0.27 mmol/L [facility] Blood gas, venouson 07-02-19 24 Arterial patency Wrist artery --pre arterial puncture [facility] Base deficit (Bld) [Moles/Vol] 26.0 mmol/L High [facility] CO2 (BldV) [Partial pressure] 20.1 mm[Hg] Low [facility] HCO3 (Bld) [Moles/Vol] 4.5 mmol/L Low [facility] Interpretation and review of laboratory results Abnormal [facility] Oxygen (BldV) [Partial pressure] 27 mm[Hg] Low [facility] Oxygen therapy source and amount [CARE] [employer]Air [facility] Oxygen/Inspired gas setting [Volume Fraction] Ventilator 21 % [facility] pH (BldV) 6.956 [pH] Low 7.320 - 7.420 [facility] SaO2% Calculated from oxygen partial pressure (BldV) [Mass fraction] 25.0 % Low 80.0 - PINF % [facility] Specimen site Narrative N/A P [facility] Specimen type Nom (Spec) VENOUS [facility] CBC AND AUTO DIFFon 07-02-19 24 ABSOLUTE BASOPHIL 0.2 X10E9/L Normal 0.0-0.2 [facility] Comment on above: Performed By: #### 6 873-4, 16656-6, 70172-9, CMP, 36295-7, HA1C, CBCA #### [facility] ([id number]) [address], [address] [place] [address] ABSOLUTE NEUTROPHIL 16.1 X10E9/L High 1.5-6.6 [facility] Comment on above: Performed By: #### 6 873-4, 12686-8, 23315-1, CMP, 37481-8, HA1C, CBCA #### [facility] ([id number]) [address], [address] [place] [address] Basophils/100 WBC (Bld) 0.9 % Normal P [facility] Comment on above: Performed By: #### 6 873-4, 57924-4, 89081-7, CMP, 14673-3, HA1C, CBCA #### [facility] ([id number]) [address], [address] [place] [address] Eosinophils (Bld) [#/Vol] 0.0 10*3/uL Normal 0.0-0.4 [facility] Comment on above: Performed By: #### 6 873-4, 55680-5, 57276-0, CMP, 78707-2, HA1C, CBCA #### [facility] ([id number]) [address], [address] [place] [address] Eosinophils/100 WBC (Bld) 0.0 % Normal [facility] Comment on above: Performed By: #### 6 873-4, 98457-5, 07639-2, CMP, 00835-9, HA1C, CBCA #### [facility] ([id number]) [address], [address] [place] [address] Erythrocyte distribution width (RBC) [Ratio] 14.8 % Normal 11.5-15.0 [facility] Comment on above: Performed By: #### 6 873-4, 98088-7, 40077-4, CMP, 44312-4, HA1C, CBCA #### [facility] ([id number]) [address] [address] [place] [address] Hematocrit (Bld) [Volume fraction] 36.5 % Normal 35-47 [facility] Comment on above: Performed By: #### 6 873-4, 84834-5, 88423-2, CMP, 53012-2, HA1C, CBCA #### [facility] ([id number]) [address], [facility] [address] [place] [address] Hemoglobin (Bld) [Mass/Vol] 11.5 g/dL Low 11.7-15.5 [facility] Comment on above: Performed By: #### 6 873-4, 03018-6, 38180-2, CMP, 75299-3, HA1C, CBCA #### [facility] ([id number]) [address], [address] [place] [address] Lymphocytes (Bld) [#/Vol] 1.8 10*3/uL Normal 1.0-3.5 [facility] Comment on above: Performed By: #### 6 873-4, 14770-8, 77717-1, CMP, 21681-0, HA1C, CBCA #### [facility] ([id number]) [address] [address] [place] [address] Lymphocytes/100 WBC (Bld) 9.3 % Normal [facility] Comment on above: Performed By: #### 6 873-4, 03826-9, 02547-4, CMP, 54660-5, HA1C, CBCA #### [facility] ([id number]) [address], [address] [place] [address] MCH (RBC) [Entitic mass] 25.4 pg Low 27-34 [facility] Comment on above: Performed By: #### 6 873-4, 13192-3, 42646-6, CMP, 83729-4, HA1C, CBCA #### [facility] ([id number]) [address], [address] [place] [address] MCHC (RBC) [Mass/Vol] 31.6 g/dL Low 32-36 [facility] Comment on above: Performed By: #### 6 873-4, 19010-2, 89388-2, CMP, 88977-7, HA1C, CBCA #### [facility] ([id number]) [address], [address] [place] [address] MCV (RBC) [Entitic vol] 81 fL Normal 80-100 P [facility] Comment on above: Performed By: #### 6 873-4, 55427-4, 68737-9, CMP, 53669-1, HA1C, CBCA #### [facility] ([id number]) [address], [address] [place] [address] Monocytes (Bld) [#/Vol] 1.1 10*3/uL High 0-0.9 [facility] Comment on above: Performed By: #### 6 873-4, 73800-1, 91932-7, CMP, 52166-3, HA1C, CBCA #### [facility] ([id number]) [address], [address] [place] [address] Monocytes/100 WBC (Bld) 5.7 % Normal [facility] Comment on above: Performed By: #### 6 873-4, 61378-8, 24186-1, CMP, 55949-1, HA1C, CBCA #### [facility] ([id number]) [address], [address] [place] [address] Neutrophils/100 WBC (Bld) 84.1 % Normal [facility] Comment on above: Performed By: #### 6 873-4, 70789-4, 35594-8, CMP, 96777-0, HA1C, CBCA #### [facility] ([id number]) [address], [facility] [address] [place] [address] Platelet mean volume (Bld) [Entitic vol] 7.8 fL Normal 7-12 [facility] Comment on above: Performed By: #### 6 873-4, 66582-9, 70093-0, CMP, 31695-1, HA1C, CBCA #### [facility] ([id number]) [address], [address] [place] [address] Platelets (Bld) [#/Vol] 261 10*3/uL Normal 150-450 [facility] Comment on above: Performed By: #### 6 873-4, 09652-3, 19509-0, CMP, 16412-1, HA1C, CBCA #### [facility] ([id number]) [address], [address] [place] [address] RBC COUNT 4.53 X10E12/L Normal 3.80-5.20 [facility] Comment on above: Performed By: #### 6 873-4, 39983-0, 14361-8, CMP, 39330-6, HA1C, CBCA #### [facility] ([id number]) [address], [address] [place] [address] WBC (Bld) [#/Vol] 19.2 10*3/uL High 4.0-11.0 [facility] Comment on above: Performed By: #### 6 873-4, 89064-3, 63138-3, CMP, 58267-3, HA1C, CBCA #### [facility] ([id number]) [address], [address] [place] [address] CBC auto differentialon Basophils (Bld) [#/Vol] 0.2 10*3/uL [facility] Basophils/100 WBC (Bld) 0.9 % P [facility] Eosinophils (Bld) [#/Vol] 0.0 10*3/uL [facility] Eosinophils/100 WBC (Bld) 0.0 % [facility] Erythrocyte distribution width (RBC) [Ratio] 14.8 % 11.5 - 15.0 % [facility] Hematocrit (Bld) [Volume fraction] 36.5 % 35 - 47 % [facility] Hemoglobin (Bld) [Mass/Vol] 11.5 g/dL Low 11.7 - 15.5 g/dL [facility] Interpretation and review of laboratory results Abnormal [facility] Lymphocytes (Bld) [#/Vol] 1.8 10*3/uL [facility] Lymphocytes/100 WBC (Bld) 9.3 % [facility] MCH (RBC) [Entitic mass] 25.4 pg Low 27 - 34 pg [facility] MCHC (RBC) [Mass/Vol] 31.6 g/dL Low 32 - 36 g/dL [facility] MCV (RBC) [Entitic vol] 81 fL 80 - 100 fL [facility] Monocytes (Bld) [#/Vol] 1.1 10*3/uL High [facility] Monocytes/100 WBC (Bld) 5.7 % P [facility] Neutrophils (Bld) [#/Vol] 16.1 10*3/uL High [facility] Neutrophils/100 WBC (Bld) 84.1 % [facility] Platelet mean volume (Bld) [Entitic vol] 7.8 fL 7 - 12 fL [facility] Platelets (Bld) [#/Vol] 261 10*3/uL [facility] RBC (Bld) [#/Vol] 4.53 10*6/uL [facility] WBC corrected for nucl RBC Auto (Bld) [#/Vol] 19.2 High [facility] COMPREHENSIVE METABOLIC PANE [employer] 07-02-2023 Albumin [Mass/Vol] 4.0 g/dL Normal 3.2-5.3 [facility] Comment on above: Performed By: #### 6 873-4, 50779-1, 43809-3, CMP, 20298-7, HA1C, CBCA #### [facility] ([id number]) [address], [address] [place] [address] ALP [Catalytic activity/Vol] 93 U/L Normal 39-130 [facility] Comment on above: Performed By: #### 6 873-4, 01052-3, 06800-4, CMP, 41234-8, HA1C, CBCA #### [facility] ([id number]) [address], [address] [place] [address] ALT [Catalytic activity/Vol] 17 U/L Normal 0-31 [facility] Comment on above: Performed By: #### 6 873-4, 23007-5, 55984-3, CMP, 21781-2, HA1C, CBCA #### [facility] ([id number]) [address], [address] [place] [address] Anion gap [Moles/Vol] 20 mmol/L High 5-15 [facility] Comment on above: Performed By: #### 6 873-4, 51490-1, 06484-5, CMP, 46142-5, HA1C, CBCA #### [facility] ([id number]) [address], [address] [place] [address] AST [Catalytic activity/Vol] 25 U/L Normal 0-41 [facility] Comment on above: Performed By: #### 6 873-4, 82292-8, 01579-4, CMP, 76026-1, HA1C, CBCA #### [facility] ([id number]) [address], [address] [place] [address] Bilirubin [Mass/Vol] 0.2 mg/dL Low 0.3-1.2 [facility] Comment on above: Performed By: #### 6 873-4, 52492-3, 63504-6, CMP, 49871-6, HA1C, CBCA #### [facility] ([id number]) [address], [address] [place] [address] Calcium [Mass/Vol] 7.0 mg/dL Low 8.5-10.5 [facility] Comment on above: Performed By: #### 6 873-4, 06221-4, 25735-9, CMP, 56409-1, HA1C, CBCA #### [facility] ([id number]) [address], [address] [place] [address] Chloride [Moles/Vol] 116 mmol/L High 98-109 [facility] Comment on above: Performed By: #### 6 873-4, 36891-0, 60547-2, CMP, 13349-9, HA1C, CBCA #### [facility] ([id number]) [address], [address] [place] [address] CO2 [Moles/Vol] 5 mmol/L Critically low 22-32 [facility] Comment on above: Performed By: #### 6 873-4, 04512-6, 21320-2, CMP, 39865-1, HA1C, CBCA #### [facility] ([id number]) [address], [address] [place] [address] Creatinine [Mass/Vol] 0.71 mg/dL Normal 0.40-1.00 [facility] Comment on above: Result Comment: METH OD TRACEABLE TO IDMS STANDARD Performed By: #### 6 873-4, 65273-2, 00631-8, CMP, 65750-5, HA1C, CBCA #### [facility] ([id number]) [address], [address] [place] [address] eGFR (CKD-EPI) NON-RACE DEPENDENT >90 Normal >59 [facility] Comment on above: Result Comment: Reported eGFR is based on the CKD-EPI 2020 equation that does not use a race coefficient. Performed By: #### 6 873-4, 92415-3, 95515-3, CMP, 08730-3, HA1C, CBCA #### [facility] ([id number]) [address], [address] [place] [address] Glucose [Mass/Vol] 260 mg/dL High 65-99 [facility] Comment on above: Performed By: #### 6 873-4, 33079-6, 59906-4, CMP, 79281-4, HA1C, CBCA #### [facility] ([id number]) [address], [address] [place] [address] Potassium [Moles/Vol] 4.6 mmol/L Normal 3.5-5.0 [facility] Comment on above: Performed By: #### 6 873-4, 38196-2, 88380-5, CMP, 99002-1, HA1C, CBCA #### [facility] ([id number]) [address], [address] [place] [address] Protein [Mass/Vol] 6.4 g/dL Normal 6.0-8.0 [facility] Comment on above: Performed By: #### 6 873-4, 54555-3, 80088-2, CMP, 56997-0, HA1C, CBCA #### [facility] ([id number]) [address], [address] [place] [address] Sodium [Moles/Vol] 141 mmol/L Normal 134-146 [facility] Comment on above: Performed By: #### 6 873-4, 34198-4, 46536-5, CMP, 37560-0, HA1C, CBCA #### [facility] ([id number]) [address] [facility], [address] [place] [address] Urea nitrogen [Mass/Vol] 16 mg/dL Normal 5-23 [facility] Comment on above: Performed By: #### 6 873-4, 60350-5, 15600-6, CMP, 19012-9, HA1C, CBCA #### [facility] ([id number]) [address] [facility], [address] [place] [address] Coding Summaryon 07-02-2023 Coding Summary [employer]Base 64 PpghrsorKIo6cHt+PGhl YWQ+AR3SEQTzD03bxIIo mQ1bS8QLXYkSWttyJLAE LShBLtKnjnTgHG1ntMMn ZXJu IC8+YA3aMRLiCkdkcFDz i9N5hCK2M24tya2lBGyb bKS7JNFtAdVypctgk5jt vOb7AXzcBeccLuCg HEOciL47ZOQ4yK12Sn67 eADtgPRax0tjoZa5KdHr GTEaDMF7tEwcEZlag2Vr SIKnV14dsNKxy2T3 IGNvbGxhcHNlOyBlbXB0 rR9uQYpqcorhx1rzakmv Pgh7qk86bBWgz0W0oVY9 F8StsyH8QKPjxBMu ZtdauHERoS7etfydj2hn dkxyJtTgHOCoRNz4ZRj1 RFMvfBptMfQoQX43CNB8 PLHpmjQuO6PyCUJb rLdrElN6q6R1Lm7KF4YG XdybO9MFJTZOFZsyjFO+ MV47hr09Y8WwSojwJey1 OJQjSVN2rGI3mZ9r CGBzIEvlt1J6vIT7F2Na cwDiyp5km4cvDKMyZIcz Y38bjPGoy7R4MPMbtWT4 FKCimXeuYaOxmM53 Oyc+NQEwuZlrj9SuZaxt x5cfq8oqiVs4YullGQKz oqSijYsiEIB0w1FzJp2u BNVfiRJ6zTW0zI1t YfQcGhJ2LNavU460SdPr uGSoYzbmS08gF1SsgXL+ LSNnDde8GDCfdLjvJD1a O7ZtLKJanedfaDYw zHslWR9wBFXdpdnvORXi bO6fJIQfT5u3MhLtUbX1 WUerP9ZhWCIgrdpkDs61 nU8zRmNdTwB7XXym T1MtetM1YEAkeXIiSPcr KTB1V90dv8C5LJUqUKEr TDR0fHR7bJ6qeEvwuwcl bGVmdDsgdmVydGlj VAjhEUnuP315FGCxvKun PkNvZGluZyBEYXRlOiAg MDEvMDMvMjAyNDwvdGQ+ LPBvYMI9aWdiFVSv nSWxOBieEb6ihHdsxRwu QK1aCZLshxifPJRpkB1b AYSklPRdrJpoSB5mOKSn crcnf657QiMdBHZ4 JBIxqXXqB3FrhN2bCwNc VWBgTBFrN1PmmFJqYYue B197JJujPxD5VGPpaxMc Y0VmLORbjImeXtU0 e2W6Cu7Bz6OdufrhZ8At kQYaBmUeSyrxRIw7U5Kk PjwvdHI+VV01JOZkQD70 ICd3LOC9oTutJKkl HCZkS4RtlU2yJdQaXJFq ZGRkOyc+PHRhYmxlIHdp ZHRoPScxMDAlJyBzdHls WL6eEo5nKQFvYODx bXzsrHXzJsWvh4upBIQc ATyyQJ5hdRejO9CwiBJ3 QWCap6p1Hc83R76kH1Db dXA+MYKwzKK1vBO2 rG0fZcNtJkW9BSyuC690 CgQyeSOdClfjm1rdw3sx kQj7EyE3OJMabfGqiKpm CSK4a3FzEa08X83n IHdpZHRoPSIxNSUiIHZh oIzkts3woO5vAg6+PGNv vRW5fDA0jN6wNmLoGqM1 FDpxG896ReEpyOUm Hxala1qyh0esiCm1FpIm HPAsvqXvsDxcVOU4g9Bj Mw24G8ZwvCrgn4QaBub2 yh59pTEyn8A0eDH5 C8CtDGXreshgjFHyqUyk BT1aDZNdhckiGWYcjI3l NJSmR3e5BsPaGtK3TOdf Y2VscxY9LAEluMQh LFSfhYOSqZ9xgbrbo5ia kyjjOlZgMFEtBYi2RWy0 BJZhbKkySrPnXFK3RiD7 WQC1eXOpgT6stRsf rwvgsJ6zOqz+BCT3nAJn yBKMMQ5fZpvtwSR+PHRk GEV1mZleMJjkIAGquH1o XHBrD8b8JqWeIgJ2 FFpfW4DwwiT9SNOoaFRp ACMkmDNJaM4ptfyga9ys twkeYcWdKNXiIVc2SLk3 LWFsaWduOiBsZWZ0 NxH8EEK2nWDmvP1dcHuo dskcnA8rVkd+QmlydGgg PXX6IFe1Z8ArQxw6YOPk sJwyGK2kfMSzIQon Zt7szGlziXvbPI4rPAZi cuccn322BaKkr7yuCNEw oELyQNusFFN5E37xq4J7 YMRwXZQrKZF6kVI5 bF7yeBomrvzamTWgiLfi fqUlcMniKJmxVBxfA692 ZCBkbSmhPeVuSXt8L8Xl Juz5KQTxbGmqGR0l kKMzMQsvIr8ekImdgCif UV1cLDVliwnck664WeHg n6exEEZymECmAAzqLJT1 P24qb2Z5LHHbGNDp WJA1zEI5fW8ryIfbmbkt bGVmdDsgdmVydGljYWwt VGajR118PPXcdIcuPxWk hGk0E3VoJjk3CGJl yDabOE7waQTpUQjtFb2r aGucyBeqYW9vLXUsrqyt u993RxIxj6ekUIBioPAr FZuxVJI9U10ck6S2 PKUoELRbDGV8cZV9wG3j bGlnbjogbGVmdDsgdmVy xJosFYbpGMkgX816YPFj cDsnPlBhdGllbnQg XBlzYVq8O5AsNikyzBG+ MS93PBUfBU68lULssAJl w4clqDl0NvHfESOcEAV6 lLjrMAcjk9VoXKJt J80ivNVmu5A9ZUVprFzu cVAjBdBcfMU2pK2bBUhu tlabu6cbswxpTnzqn8ye ee23kJ62X40gQQon ZHRoPSIzMCUiIHZhbGln ov0zsZ4zRj3+PGNvbCB3 iYS9iI0oHSFsIdR9QRsl J108XnGcsVHnMmzz t5xvl4qqfYw1CnW0RCVd npIkbMlaGXL5y2DjHq14 J22vBNbuOSSsPQEgAHNn WYWcgTilrm0swG7g Ii8+TAMrpFF2bKD9rK6x GtAlUpV2ZJpoW171DwQn lUQiFaonT72hJ7PcnSS+ RWMjYsr2MOMusKul KU2rvOMhGDgeSc2eULK1 LpXtShQkNLylU4LgLEAu gejarkjocWP1FEYdBTEx rI91Pn7fsDvxGFNn jPEVwV4dkzyox3nueupp SsYtEHCwTWw9ZGr9HJUj oDzgTjPuEIW7ObC6AJI8 qRGkeS3hhWgpeuin rV4jY9AwAMCmtmylLk85 zA5iBfXgFcZ9XHogGbq+ UC2IUEOTZXWAIElHQXAP GKQDUXM5W1JjAyc5 LTIdqRkkJO2ewMGgZYqx Od8nuGwboSlrHL4cGTJn uvcqIDHnvF1hJBFxzXFt eWduSM2gHPMkdnja j057IjBkJDZ4VYNsuPPs X9WucZ5oXqHvHDItZSHv V5JvmXGlVIjlR532MTwb YbH4HPHdbhLcJ5Ei SHMzkCjiIjE5u3O8Ly9u Xk0eEG0gMTazGH59XZ39 uCQuw6W2rNG1L6IzXBId dvkbvhojgZS1YCCj AZUjkS32fKVtJKokKz5j t0P9d879ABSbTWNkxO61 Wu7mxQepVLRajCDNbL3c utzpz5msgpcpYcCm UUBfFSm2DWo3KRQoiPlj JlInHVG9JlY8XXY8hENg nQ7jcAtvdgcxsI1tZpt+ YlUhVAOtfaL9P6Mf Riq5QEYdiTslMQ3qpOXu UOzzBu5itSnqqPgqKV2e SMLrialbIKByiQ7aGRLx pVTcnPwsQA7oGYSt ievpq309PaPoYOL3GOMx mSCqB5JeqW1hJnErBYNs SOSsW8OmlHVwXMevO155 GHmfJwO0CXXznlEl W2MvNSRjgUzsIjG4l9Q0 He1EZL2ERXK8R3MsAks8 FQAnqMwuZH6joWVfAAqh Wm8buTumdIzbTP0m PRVomhskGNKbxY9lHALb mIVoqAhfAY8yXWQuyfth o960DuOrNDW1BWCrvZWw D0JusW4jKwXuWFQc JCIlQ5VplJZxODwqM882 XDcyNnV1NRUovoWcF0Mt TZXqoXlcIsX5t9G7Tw2P egJhhKnhxsT4M7Ix PjwvdHI+DH87WCMsYP70 eARpfTYvy3ttnWg5NcUn IMOjMZU9bZzfDVhqg1Bq CWRpB30lnVWyx5C5 IGNvbGxhcHNlOyBlbXB0 lN4jDYedclkhu2nbmptm Gougt3kkox86yW41I64q IHdpZHRoPSIzMCUi RDWboQldsy2svB6bUv8+ XZTpxOJ3iJA4rR4mZyGq WrW5WZzdW076TyKutCWn Vongl9wxb2cmyBl9 IjIwJSIgdmFsaWduPSJ0 s8LgNf76S90lQExkWYKl DBAsHWGgEHEoiVieiv9r rW0jYa6+SY7oz5hr wb11iU46yRY+PHRkIHN0 vOuzSOamKOGvaH9cLJks DiW1DSEnAbThgY90vZOt APliVp3hnVklfQql JZ5iTRNddixja893RkUi b6muZHSvrICfBNtyHAG2 X53wj0N2NUWaHUYrTBU2 jST6iX5frYasasyc bGVmdDsgdmVydGljYWwt RVyxZ436SIHmzQtvDoWi mECmW4onevGWSF3nVijh dGQ+WHWvMKO5eAuo JJetSZDcrP6qYXOwN0n0 TmHeBjK7XNmuC5PlfjJ2 GJGnfMMhKJQitIRHiW2g liqdk3zzhwpsNtMb MXErGXy7FWt5KIVxiAxd ZlCwFTZ9MaY4JNU6kPOf hO5zdHxqhjfrqS1jZeb+ RklOOjwvdGQ+PHRk ZGU1iDkePKdyDTOckO5u TJDdU9z1VuAgHiY3HZao R8RzizP9ZHBstBWoYIVl mSDIqD2dnkkjf9to gznlBvBfGBXmVKe0KJt3 BFEjgJnlYtCqWQW3ScD1 JCM3zIFnlN5chEtaifnz nC0eKfx+TVJOOjwv dGQ+BQDpERU5tOdxSFgd NYTfrV0lNLSnU9u7XfGa ZiV7SVbmV1IpjcR8ZYIh mJJyTLYkvCWXdD9l exewx0qdjqqeCiEaFYNs PMb3ZBi4FTAwaKcdHdVr MBO4LqC4BOM5dYTwjB5o fCuvettsnH4kJif+ AOF2GUZ5UE97TH52N6Vq PjwvdGFibGU+PHRhYmxl IHdpZHRoPScxMDAlJyBz tEnsPC2jVb3oGDDg LWN (more content not included)... Normal [facility] Comprehensive metabolic pane galileo 07-02-2023 Albumin [Mass/Vol] 4.0 g/dL 3.2 - 5.3 g/dL [facility] ALP [Catalytic activity/Vol] 93 U/L 39 - 130 U/L [facility] ALT No additional P-5'-P [Catalytic activity/Vol] 17 U/L 0 - 31 U/L [facility] Anion gap [Moles/Vol] 20 mmol/L High 5 - 15 mmol/L [facility] AST [Catalytic activity/Vol] 25 U/L 0 - 41 U/L [facility] Bilirubin [Mass/Vol] 0.2 mg/dL Low 0.3 - 1 .2 mg/dL [facility] Calcium [Mass/Vol] 7.0 mg/dL Low 8.5 - 10. 5 mg/dL [facility] Chloride [Moles/Vol] 116 mmol/L High 98 - 10 9 mmol/L [facility] CO2 [Moles/Vol] 5 mmol/L Critically low 22 - 32 mmol/L [facility] Creatinine [Mass/Vol] 0.71 mg/dL 0.40 - 1.00 mg/dL [facility] Comment on above: METHOD TRACEABLE TO IDMS STANDARD eGFR (CKD-EPI)non-race dependent - PINF [facility] Comment on above: Reported eGFR is based on the CKD-EPI 2020 equation that does not use a race coefficient. Glucose [Mass/Vol] 260 mg/dL High 65 - 99 mg/dL [facility] Potassium [Moles/Vol] 4.6 mmol/L 3.5 - 5.0 mmol/L [facility] Protein [Mass/Vol] 6.4 g/dL 6.0 - 8.0 g/dL [facility] Sodium [Moles/Vol] 141 mmol/L 134 - 146 mmol/L [facility] Urea nitrogen [Mass/Vol] 16 mg/dL 5 - 23 mg/d L [facility] ELECTROLYTESon 07-02-2023 Anion gap [Moles/Vol] 13 mmol/L Normal 5-15 [facility] Comment on above: Performed By: #### 6 873-4, ELEC, 2776-06 ####[facility] ([id number])[address], [place] [address] Chloride [Moles/Vol] 118 mmol/L High 98-109 [facility] Comment on above: Performed By: #### 6 873-4, ELEC, 2776-06 ####[facility] ([id number])[address], [place] [address] CO2 [Moles/Vol] 9 mmol/L Critically low 22-32 [facility] Comment on above: Performed By: #### 6 873-4, ELEC, 2776-06 ####[facility] ([id number])[address] [place] [address] Potassium [Moles/Vol] 3.5 mmol/L Normal 3.5-5.0 [facility] Comment on above: Performed By: #### 6 873-4, ELEC, 2776- ####[facility] ([id number])[address], [place] [address] Sodium [Moles/Vol] 140 mmol/L Normal 134-146 [facility] Comment on above: Performed By: #### 6 873-4, ELEC, 2777-1 ####[facility] ([id number])[address], [place] [address] Electrolyte panelon 07-02-19 24 Anion gap [Moles/Vol] 13 mmol/L 5 - 15 mmol/L [facility] Chloride [Moles/Vol] 118 mmol/L High 98 - 10 9 mmol/L [facility] CO2 [Moles/Vol] 9 mmol/L Critically low 22 - 32 mmol/L [facility] Potassium [Moles/Vol] 3.5 mmol/L 3.5 - 5.0 mmol/L [facility] Sodium [Moles/Vol] 140 mmol/L 134 - 146 mmol/L [facility] Glucose Glucometer (BldC) [M ass/Vol]on 07-02-2023 Glucose [Mass/Vol] 237 mg/dL High 65-99 [facility] Glucose [Mass/Vol] 287 mg/dL High 65-99 [facility] Glucose [Mass/Vol] 233 mg/dL High 65 - 99 mg/dL [facility] Interpretation and review of laboratory results Abnormal [facility] Glucose [Mass/Vol] 247 mg/dL High 65-99 [facility] Glucose [Mass/Vol] 237 mg/dL High 65 - 99 mg/dL [facility] Interpretation and review of laboratory results Abnormal [facility] Glucose [Mass/Vol] 287 mg/dL High 65 - 99 mg/dL [facility] Interpretation and review of laboratory results Abnormal [facility] Glucose [Mass/Vol] 254 mg/dL High 65-99 [facility] Glucose [Mass/Vol] 255 mg/dL High 65-99 [facility] Glucose [Mass/Vol] 247 mg/dL High 65 - 99 mg/dL [facility] Interpretation and review of laboratory results Abnormal [facility] Glucose [Mass/Vol] 254 mg/dL High 65 - 99 mg/dL [facility] Interpretation and review of laboratory results Abnormal [facility] Glucose [Mass/Vol] 231 mg/dL High 65-99 [facility] Glucose [Mass/Vol] 255 mg/dL High 65 - 99 mg/dL [facility] Interpretation and review of laboratory results Abnormal [facility] Glucose [Mass/Vol] 231 mg/dL High 65 - 99 mg/dL [facility] Interpretation and review of laboratory results Abnormal [facility] HGB A1C (GLYCO-HGB)on 2023 Glucose [Mass/Vol] 398 mg/dL Normal [facility] Comment on above: Performed By: #### 6 873-4, 72791-4, 86671-1, CMP, 57182-4, HA1C, CBCA #### [facility] ([id number]) [address], [address] [place] [address] HbA1c (Bld) [Mass fraction] 15.5 % High 4.4-5.6 [facility] Comment on above: Result Comment: NOTE ADA Guidelines Result HgbA1c Normal : less than 5.7 % Prediabetes : 5.7 % to 6.4 % Diabetes : > 6.4 % Use with caution in patients with abnormal hemoglobin variants as the half-life of red blood cells and in vivo glycation rates are affected. Performed By: #### 6 873-4, 00658-8, 04828-5, CMP, 10313-4, HA1C, CBCA #### [facility] ([id number]) [address], [address] [place] [address] Hemoglobin A1con 07-02-2023 Average glucose Estimated from glycated hemoglobin (Bld) [Mass/Vol] 398 mg/dL [facility] HbA1c (Bld) [Mass fraction] 15.5 % High 4.4 - 5.6 % [facility] Comment on above: NOTE ADA Guidelines Result HgbA1c Normal : less than 5.7 % Prediabetes : 5.7 % to 6.4 % Diabetes : > 6.4 % Use with caution in patients with abnormal hemoglobin variants as the half-life of red blood cells and in vivo glycation rates are affected. Interpretation and review of laboratory results Abnormal [facility] Lactateon 07-02-2023 Lactate (P denis) [Moles/Vol] 0.8 mmol/L 0.4 - 2.0 mmol/L [facility] Lactate (P denis) [Moles/Vol]o n 07-02-2023 Lactate [Moles/Vol] 0.8 mmol/L Normal 0.4-2.0 [facility] Comment on above: Performed By: #### 6 873-4, 47542-0, 14022-0, CMP, 31228-6, HA1C, CBCA #### [facility] ([id number]) [address], [address] [place] [address] [facility] MAGNESIUMon 07-02-2023 Magnesium [Mass/Vol] 1.7 mg/dL Low 1.8-2.6 [facility] Comment on above: Performed By: #### 6 873-4, 78569-3, 99504-3, CMP, 52163-1, HA1C, CBCA #### [facility] ([id number]) [address], [address] [place] [address] Magnesiumon 07-02-2023 Magnesium [Mass/Vol] 1.7 mg/dL Low 1.8 - 2 .6 mg/dL [facility] Magnesium [Mass/Vol]on 07-02 Interpretation and review of laboratory results Abnormal [facility] No Panel Informationon 07-02 Interpretation and review of laboratory results Abnormal [facility] Interpretation and review of laboratory results Abnormal [facility] PHOSPHORUSon 07-02-2023 Phosphate [Mass/Vol] mg/dL Critically low 2.4-4.9 [facility] Comment on above: Performed By: #### 6 873-4, ELEC, 2777-1 ####[facility] ([id number])[address], [place] [address] Phosphoruson 07-02-2023 Phosphate [Mass/Vol] mg/dL Critically low 2.4 - 4.9 mg/dL [facility] TROPONIN Ion 07-02-2023 Troponin I.cardiac [Mass/Vol] 0.93 ng/mL Critically high 0.00-0.04 [facility] Comment on above: Result Comment: Concentrations greater than or equal to 0.05 ng/ml are considered elevated. Elevations of Troponin may be due to causes other than myocardial ischemia. Recommend serial Troponin testing be performed. Performed By: #### 6 873-4, 85256-0, 25849-6, CMP, 34769-6, HA1C, CBCA #### [facility] ([id number]) [address], [address] [place] [address] Troponin Ion 07-02-2023 Troponin I.cardiac [Mass/Vol] 0.93 ng/mL Critically high 0.00 - 0.04 ng/mL [facility] Comment on above: Concentrations greater than or equal to 0.05 ng/ml are considered elevated. Elevations of Troponin may be due to causes other than myocardial ischemia. Recommend serial Troponin testing be performed. VENOUS BLOOD GASon CAMI'S TEST Normal [facility] Comment on above: Performed By: #### V BG #### [facility] ([id number]) [address] [place] [address] BASE,DEFICIT 26.0 MMOL/L High 0.0-2.0 [facility] Comment on above: Performed By: #### V BG #### [facility] ([id number]) [address] [place] [address] Body temperature 98.6 [degF] Normal 37.[address] [facility] Comment on above: Performed By: #### V BG #### [facility] ([id number]) [address] [place] [address] HCO3 (Bld) [Moles/Vol] 4.5 mmol/L Low 20.0-24.0 [facility] Comment on above: Performed By: #### V BG #### [facility] ([id number]) [address] [place] [address] INSP. O2 CONC. 21 % Normal [facility] Comment on above: Performed By: #### V BG #### [facility] ([id number]) [address] [place] [address] Oxygen saturation in Blood 25.0 % Low >80.0 [facility] Comment on above: Performed By: #### V BG #### [facility] ([id number]) [address] [place] [address] OXYGEN SOURCE [employer] [facility] Comment on above: Performed By: #### V BG #### [facility] ([id number]) [address] [place] [address] PCO2, VENOUS 20.1 MMHG Low 35-50 [facility] Comment on above: Performed By: #### V BG #### [facility] ([id number]) [address] [place] [address] PH, VENOUS 6.956 Low 7.320-7.420 [facility] Comment on above: Performed By: #### V BG #### [facility] ([id number]) [address] [place] [address] PO2, VENOUS 27 MMHG Low 30-50 [facility] Comment on above: Performed By: #### V BG #### [facility] ([id number]) [address] [place] [address] SAMPLE SITE N/A Normal [facility] Comment on above: Performed By: #### V BG #### [facility] ([id number]) [address] [place] [address] SAMPLE TYPE VENOUS Normal [facility] Comment on above: Performed By: #### V BG #### [facility] ([id number]) [address] [place] [address] C Bloodon 06-17-2023 C Blood No growth at 5 Days Normal [facility] Comment on above: Performed By: #### 6 [id number] ####[facility] (DEFAULT)[address] [place] [address] Coding Queryon 06-17-2023 Coding Query HIM CODING QUERY FORM Accurate coding and billing requires that the principal diagnosis, secondary diagnosis and procedures be supported by physician documentation and that this documentation be reflected in the discharge summary (if required for patient type). Any time this information is not complete, it is the regional operations manager?s responsibility to query the physician. Based on medical record review, the following issues have been identified: (XX ) Please complete ED Note. Thank you for your cooperation and timely attention to this matter. Magnolia griffin [Electronically Signed on: 06/26/2023 17:47 EST] Jaun Uribe MD [Verified on: 06/26/2023 17:47 EST] Jaun Uribe MD [Transcribed on: 06/17/2023 15:38 EST] [facility] Provider Orderson 06-17-2023 Provider Orders [id number] [facility] Cons[facility] Formson 06-16-2023 Consent Forms [id number]# 1.00[facility] Provider Orderson 06-16-2023 Provider Orders [id number] #1.00[facility] Telemetry Stripson Telemetry Strips [id number] #[facility] Acute Hepatitis LCon 023 HBsAg Screen LC Negative Invalid Interpretation Code Negative [facility] Comment on above: Performed By: #### 7 [id number] #### [facility] (DEFAULT) [address] [place] [address] Hep A Ab, IgM LC Negative Invalid Interpretation Code Negative [facility] Comment on above: Performed By: #### 0 [id number] #### [facility] (DEFAULT) [address] [place] [address] Hep B Core Ab, IgM LC Negative Invalid Interpretation Code Negative [facility] Comment on above: Performed By: #### 4 [id number] #### [facility] (DEFAULT) [address] [place] [address] Hepatitis C Ab LC Non-Reactive Invalid Interpretation Code Non Reactive [facility] Comment on above: Result Comment: Perf ormed At: [facility] [address] [id number] Vilma Ho PhD Ph:[phone] Performed By: #### 6 [id number] #### [facility] (DEFAULT) [address] [place] [address] RPR, Rfx Qn RPR/Confirm TP L Con 06-14-2023 RPR LC Non-Reactive Invalid Interpretation Code Non Reactive [facility] Comment on above: Result Comment: Perf ormed At: [facility] [address] [id number] Vilma Ho PhD Ph:[phone] Performed By: #### 2 797085, [id number], [id number] #### [facility] (DEFAULT) [address] [place] [address] .Auto Diff - Auto Archer % 7 % Normal 07-11 [facility] Comment on above: Performed By: #### 2 828761, [id number], 2383538 #### [facility] (DEFAULT) [address] [place] [address]359 Baso Abs# 0.0 x10 Normal 0.0-0.2 [facility] Comment on above: Performed By: #### 2 990156, [id number], 6462806 #### [facility] (DEFAULT) [address] [place] [address]757 Basophils/100 WBC (Bld) 0.4 % Normal 0.2-2.0 [facility] Comment on above: Performed By: #### 2 399424, [id number], 4888251 #### [facility] (DEFAULT) [address] [place] [address]804 Eos Abs# 0.2 x10 Normal 0.0-0.4 [facility] Comment on above: Performed By: #### 2 212712, [id number], 4983513 #### [facility] (DEFAULT) [address] [place] [address] 35514 Eosinophils/100 WBC (Bld) 2.2 % Normal 0.9-4.0 [facility] Comment on above: Performed By: #### 2 273322, [id number], 3164483 #### [facility] (DEFAULT) [address] [place] [address]193 Lymph Abs# 2.7 x10 Normal 1.3-2.9 [facility] Comment on above: Performed By: #### 2 920800, [id number], 7977043 #### [facility] (DEFAULT) [address] [place] [address]11 Lymphocytes/100 WBC (Bld) 36 % Normal 14-48 [facility] Comment on above: Performed By: #### 2 059914, [id number], 6021739 #### [facility] (DEFAULT) [address] [place] [address] 90458 Archer Abs# 0.5 x10 Normal 0.0-0.8 [facility] Comment on above: Performed By: #### 2 739520, [id number], 8212617 #### [facility] (DEFAULT) [address] [place] [address]339 Neut Abs# 4.0 x10 Normal 1.5-9.2 [facility] Comment on above: Performed By: #### 2 339764, [id number], 7824724 #### [facility] (DEFAULT) [address] [place] [address] 70162 Neutrophils/100 WBC (Bld) 54 % Normal 44-88 [facility] Comment on above: Performed By: #### 2 671336, [id number], 6141270 #### [facility] (DEFAULT) [address] [place] [address] [facility] 06-13-2023 eGFR AA >60 Invalid Interpretation Code [facility] Comment on above: Order Comment: While on Insulin Drip Performed By: #### 2 188819, [id number], 1558260 #### [facility] (DEFAULT) [address] [place] [address] 81064 eGFR Non AA >60 Invalid Interpretation Code [facility] Comment on above: Order Comment: While on Insulin Drip Performed By: #### 2 147517, [id number], 6833857 #### [facility] (DEFAULT) [address] [place] [address]38 Anion gap [Moles/Vol] 8.7 mmol/L Normal 5.0-19.0 [facility] Comment on above: Order Comment: While on Insulin Drip Performed By: #### 2 361493, [id number], 3775517 #### [facility] (DEFAULT) [address] [place] [address] 13341 Calcium [Mass/Vol] 8.0 mg/dL Low 8.9-10.3 [facility] Comment on above: Order Comment: While on Insulin Drip Performed By: #### 2 470405, [id number], 7848599 #### [facility] (DEFAULT) [address] [place] [address] 17792 Chloride [Moles/Vol] 106 mmol/L Normal 101-111 [facility] Comment on above: Order Comment: While on Insulin Drip Performed By: #### 2 439065, [id number], 8654308 #### [facility] (DEFAULT) [address] [place] [address] 54435 CO2 [Moles/Vol] 21 mmol/L Normal 21-32 [facility] Comment on above: Order Comment: While on Insulin Drip Performed By: #### 2 863499, [id number], 1876694 #### [facility] (DEFAULT) [address] [place] [address] 19452 Creatinine [Mass/Vol] 0.58 mg/dL Low 0.60-1.30 [facility] Comment on above: Order Comment: While on Insulin Drip Performed By: #### 2 963180, [id number], 5623645 #### [facility] (DEFAULT) [address] [place] [address]484 Glucose [Mass/Vol] 388.0 mg/dL High 74.0-118.0 [facility] Comment on above: Order Comment: While on Insulin Drip Performed By: #### 2 657325, [id number], 0159148 #### [facility] (DEFAULT) [address] [place] [address] 08638 Osmolality 280 mOsm/L Invalid Interpretation Code [facility] Comment on above: Order Comment: While on Insulin Drip Performed By: #### 2 146625, [id number], 6232192 #### [facility] (DEFAULT) [address] [place] [address] 11447 Potassium [Moles/Vol] 3.7 mmol/L Normal 3.6-5.1 [facility] Comment on above: Order Comment: While on Insulin Drip Performed By: #### 2 117650, [id number], 7540718 #### [facility] (DEFAULT) [address] [place] [address] 17533 Sodium [Moles/Vol] 132.0 mmol/L Low 136.0-144.0 [facility] Comment on above: Order Comment: While on Insulin Drip Performed By: #### 2 358458, [id number], 6323985 #### [facility] (DEFAULT) [address] [place] [address] 65269 Urea nitrogen [Mass/Vol] 12 mg/dL Normal 8- [facility] Comment on above: Order Comment: While on Insulin Drip Performed By: #### 2 381967, [id number], 0945172 #### [facility] (DEFAULT) [address] [place] [address] 13136 Urea nitrogen/Creatinine [Mass ratio] 20.6 mg/mg High 4.6-16.2 [facility] Comment on above: Order Comment: While on Insulin Drip Performed By: #### 2 770189, [id number], 5479889 #### [facility] (DEFAULT) [address] [place] [address] 18065 eGFR AA >60 Invalid Interpretation Code [facility] Comment on above: Order Comment: While on Insulin Drip Performed By: #### 2 437373, [id number], 1891788 ####[facility] (DEFAULT)[address] [place] [address] 09665 eGFR Non AA >60 Invalid Interpretation Code [facility] Comment on above: Order Comment: While on Insulin Drip Performed By: #### 2 608106, [id number], 9077350 ####[facility] (DEFAULT)[address] [place] [address]2695 Anion gap [Moles/Vol] 1.6 mmol/L Low 5.0-19.0 [facility] Comment on above: Order Comment: While on Insulin Drip Performed By: #### 2 145336, [id number], 4304604 ####[facility] (DEFAULT)[address] [place] [address] 89170 Calcium [Mass/Vol] 7.6 mg/dL Low 8.9-10.3 [facility] Comment on above: Order Comment: While on Insulin Drip Performed By: #### 2 432406, [id number], 8758291 ####[facility] (DEFAULT)[address] [place] [address] 78333 Chloride [Moles/Vol] 113 mmol/L High 101-111 [facility] Comment on above: Order Comment: While on Insulin Drip Performed By: #### 2 065027, [id number], 6929844 ####[facility] (DEFAULT)[address] [place] [address] 18619 CO2 [Moles/Vol] 23 mmol/L Normal 21-32 [facility] Comment on above: Order Comment: While on Insulin Drip Performed By: #### 2 975765, [id number], 1592904 ####[facility] (DEFAULT)[address] [place] [address] 32708 Creatinine [Mass/Vol] 0.57 mg/dL Low 0.60-1.30 [facility] Comment on above: Order Comment: While on Insulin Drip Performed By: #### 2 909157, [id number], 5180298 ####[facility] (DEFAULT)[address] [place] [address] 55249 Glucose [Mass/Vol] 234.0 mg/dL High 74.0-118.0 [facility] Comment on above: Order Comment: While on Insulin Drip Performed By: #### 2 659822, [id number], 1110604 ####[facility] (DEFAULT)[address] [place] [address] 86130 Osmolality 275 mOsm/L Invalid Interpretation Code [facility] Comment on above: Order Comment: While on Insulin Drip Performed By: #### 2 528781, [id number], 9152223 ####[facility] (DEFAULT)[address] [place] [address] 68321 Potassium [Moles/Vol] 3.6 mmol/L Normal 3.6-5.1 [facility] Comment on above: Order Comment: While on Insulin Drip Performed By: #### 2 021152, [id number], 1487077 ####[facility] (DEFAULT)[address] [place] [address] Sodium [Moles/Vol] 134.0 mmol/L Low 136.0-144.0 [facility] Comment on above: Order Comment: While on Insulin Drip Performed By: #### 2 877713, [id number], 6138573 ####[facility] (DEFAULT)[address] [place] [address] Urea nitrogen [Mass/Vol] 11 mg/dL Normal 8-26 [facility] Comment on above: Order Comment: While on Insulin Drip Performed By: #### 2 223314, [id number], 7346506 ####[facility] (DEFAULT)[address] [place] [address] Urea nitrogen/Creatinine [Mass ratio] 19.2 mg/mg High 4.6-16.2 [facility] Comment on above: Order Comment: While on Insulin Drip Performed By: #### 2 331897, [id number], 5784237 ####[facility] (DEFAULT)[address] [place] [address] CBC w/ Auto Diffon 3 Erythrocyte distribution width (RBC) [Ratio] 15.1 % High 11.5-15.0 [facility] Comment on above: Performed By: #### 2 012831, [id number], 0775634 #### [facility] (DEFAULT) [address] [place] [address] Hematocrit (Bld) [Volume fraction] 32.3 % Low 33.7-40.4 [facility] Comment on above: Performed By: #### 2 586495, [id number], 7212139 #### [facility] (DEFAULT) [address] [place] [address] Hemoglobin (Bld) [Mass/Vol] 10.6 g/dL Low 11.3-15.9 [facility] Comment on above: Performed By: #### 2 076696, [id number], 7751952 #### [facility] (DEFAULT) [address] [place] [address] 87844 Man Diff? Auto Invalid Interpretation Code [facility] Comment on above: Performed By: #### 2 468953, [id number], 7757229 #### [facility] (DEFAULT) [address] [place] [address] 32802 MCH (RBC) [Entitic mass] 26 pg Normal 24-34 [facility] Comment on above: Performed By: #### 2 174097, [id number], 2405312 #### [facility] (DEFAULT) [address] [place] [address] 98212 MCHC (RBC) [Mass/Vol] 33 g/dL Normal 26-37 [facility] Comment on above: Performed By: #### 2 929442, [id number], 4249358 #### [facility] (DEFAULT) [address] [place] [address] 57459 MCV (RBC) [Entitic vol] 78 fL Low 81-100 [facility] Comment on above: Performed By: #### 2 319514, [id number], 8259027 #### [facility] (DEFAULT) [address] [place] [address] 33962 Platelet 320 x10 Normal 138-427 [facility] Comment on above: Performed By: #### 2 289283, [id number], 5147957 #### [facility] (DEFAULT) [address] [place] [address] 87641 Platelet mean volume (Bld) [Entitic vol] 7.2 fL Normal 6.3-10.2 [facility] Comment on above: Performed By: #### 2 688064, [id number], 9950238 #### [facility] (DEFAULT) [address] [place] [address] 49100 RBC 4.14 x10 Normal 3.70-5.30 [facility] Comment on above: Performed By: #### 2 628831, [id number], 1755785 #### [facility] (DEFAULT) [address] [place] [address] 80031 WBC 7.4 x10 Normal 3.5-10.5 [facility] Comment on above: Performed By: #### 2 366625, [id number], 4328444 #### [facility] (DEFAULT) [address] [place] [address] 87907 CMP Standardon 06-13-2023 eGFR Non AA >60 Invalid Interpretation Code [facility] Comment on above: Performed By: #### 2 965911, [id number], 4941360 #### [facility] (DEFAULT) [address] [place] [address] 62079 eGFR AA >60 Invalid Interpretation Code [facility] Comment on above: Performed By: #### 2 615438, [id number], 5116632 #### [facility] (DEFAULT) [address] [place] [address] 56707 Albumin [Mass/Vol] 3.1 g/dL Low 3.5-5.0 [facility] Comment on above: Performed By: #### 2 099128, [id number], 9219599 #### [facility] (DEFAULT) [address] [place] [address] 45147 Albumin/Globulin [Mass ratio] 1.1 {ratio} Low 1.4-2.6 [facility] Comment on above: Performed By: #### 2 092117, [id number], 0489720 #### [facility] (DEFAULT) [address] [place] [address] 20311 Alk Phos 59 IU/L Normal 32-91 [facility] Comment on above: Performed By: #### 2 432231, [id number], 2930616 #### [facility] (DEFAULT) [address] [place] [address] 76722 ALT [Catalytic activity/Vol] 17.0 U/L Normal 14.0-54.0 [facility] Comment on above: Performed By: #### 2 356849, [id number], 2694339 #### [facility] (DEFAULT) [address] [place] [address] 68492 Anion gap [Moles/Vol] 7.7 mmol/L Normal 5.0-19.0 [facility] Comment on above: Performed By: #### 2 042484, [id number], 4564393 #### [facility] (DEFAULT) [address] [place] [address] 59512 AST [Catalytic activity/Vol] 15 U/L Normal 15-41 [facility] Comment on above: Performed By: #### 2 149520, [id number], 8804188 #### [facility] (DEFAULT) [address] [place] [address] 07945 Bili Total 0.4 mg/dL Normal 0.3-1.2 [facility] Comment on above: Performed By: #### 2 479147, [id number], 1647032 #### [facility] (DEFAULT) [address] [place] [address] 07669 Calcium [Mass/Vol] 8.1 mg/dL Low 8.9-10.3 [facility] Comment on above: Performed By: #### 2 063184, [id number], [id number] #### [facility] (DEFAULT) [address] [place] [address] 60094 Chloride [Moles/Vol] 106 mmol/L Normal 101-111 [facility] Comment on above: Performed By: #### 2 289562, [id number], 4425651 #### [facility] (DEFAULT) [address] [place] [address] 81678 CO2 [Moles/Vol] 24 mmol/L Normal 21-32 [facility] Comment on above: Performed By: #### 2 355055, [id number], 4514381 #### [facility] (DEFAULT) [address] [place] [address] 50687 Creatinine [Mass/Vol] 0.49 mg/dL Low 0.60-1.30 [facility] Comment on above: Performed By: #### 2 716537, [id number], 0319311 #### [facility] (DEFAULT) [address] [place] [address] 12513 Globulin (S) [Mass/Vol] 2.7 g/dL Normal 1.5-4.3 [facility] Comment on above: Performed By: #### 2 230223, [id number], 3557899 #### [facility] (DEFAULT) [address] [place] [address] 43545 Glucose [Mass/Vol] 128.0 mg/dL High 74.0-118.0 [facility] Comment on above: Performed By: #### 2 523813, [id number], 3231229 #### [facility] (DEFAULT) [address] [place] [address] 53863 Osmolality 269 mOsm/L Invalid Interpretation Code [facility] Comment on above: Performed By: #### 2 908669, [id number], 8856617 #### [facility] (DEFAULT) [address] [place] [address] 18926 Potassium [Moles/Vol] 3.7 mmol/L Normal 3.6-5.1 [facility] Comment on above: Performed By: #### 2 909917, [id number], 8546747 #### [facility] (DEFAULT) [address] [place] [address] 58756 Protein [Mass/Vol] 5.8 g/dL Low 6.5-8.1 [facility] Comment on above: Performed By: #### 2 621168, [id number], 3676357 #### [facility] (DEFAULT) [address] [place] [address] 57913 Sodium [Moles/Vol] 134.0 mmol/L Low 136.0-144.0 [facility] Comment on above: Performed By: #### 2 070224, [id number], 3838166 #### [facility] (DEFAULT) [address] [place] [address] 65985 Urea nitrogen [Mass/Vol] 11 mg/dL Normal 8-26 [facility] Comment on above: Performed By: #### 2 427408, [id number], 5457976 #### [facility] (DEFAULT) [address] [place] [address] 09753 Urea nitrogen/Creatinine [Mass ratio] 22.4 mg/mg High 4.6-16.2 [facility] Comment on above: Performed By: #### 2 920307, [id number], 2741316 #### [facility] (DEFAULT) [address] [place] [address] Case Management Noteon 06-13 Case Management Note [id number][facility]son 06-13-2023 Consent Forms [id number] [facility] HgbA1c Standardon 06-13-2023 .Hb 13.4 Invalid Interpretation Code [facility] Comment on above: Performed By: #### 1 [id number] ####[facility] (DEFAULT)[address] [place] [address] 94573 .Hgb A1c 2.01 g/dL Invalid Interpretation Code [facility] Comment on above: Performed By: #### 1 [id number] ####[facility] (DEFAULT)[address] [place] [address] 93208 Glucose [Mass/Vol] 407 mg/dL Invalid Interpretation Code [facility] Comment on above: Performed By: #### 1 [id number] ####[facility] (DEFAULT)[address] [place] [address] 15457 HbA1c (Bld) [Mass fraction] 15.8 % High 4.6-6.2 [facility] Comment on above: Performed By: #### 1 [id number] ####[facility] (DEFAULT)[address] [place] [address] 88617 Magnesiumon 06-13-2023 Magnesium [Mass/Vol] 1.87 mg/dL Normal 1.80-2.50 [facility] Comment on above: Performed By: #### 2 096754, [id number], 0332561 #### [facility] (DEFAULT) [address] [place] [address] 19197 Magnesium [Mass/Vol] 1.84 mg/dL Normal 1.80-2.50 [facility] Comment on above: Order Comment: While on Insulin Drip Performed By: #### 2 832872, [id number], 7663498 #### [facility] (DEFAULT) [address] [place], [place] [address] Magnesium [Mass/Vol] 2.02 mg/dL Normal 1.80-2.50 [facility] Comment on above: Order Comment: While on Insulin Drip Performed By: #### 2 546673, [id number], 3210729 ####[facility] (DEFAULT)[address] [place] [address] Nutrition Noteon 06-13-2023 Nutrition Note met with patient this AM; 28 yo female diagnosed with DKA; patient has been calling kitchen this AM requesting excessive amounts of non-carb foods; patient states she is so hungry - also needs to see a piece of meat on her breakfast tray (not just eggs); did send one sausage alanis and one piece of ham in addition to her breakfast tray that she already ate; patient reports lives in her van; 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 - showed me her two ankle bracelets she is wearing; patient pleasant; patient reports that she is trying to get clean - 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 patient to be sent home with insulin/pens for bg management after discharge; discussed that once patient is stable to have endo send referral to [facility] so she can come see me and community administrator FELICIA for some diabetes education; unsure if patient will follow through, however told her she can call me anytime she has a questions; discussed with patient why excessive amounts of meat aren't a great choice with her increased risk for heart disease; discussed low carb foods that we can send with her meals to help her to feel full; ? patient being discharged today; patient denies further needs at this time; available for further assist prn. ts Pt left AMA. Normal [facility] POCT Glucose Levelon 06-13- 023 Glucose, POC See Comment Invalid Interpretation Code 74118 [facility] Comment on above: Result Comment: Ruperto evans order, remove 1 diane Rodarte in ICU 06/13/2023 08:10:39 EST JW Performed By: #### 4 [id number] #### [facility] (DEFAULT) [address] [place] [address] 14269 Glucose [Mass/Vol] 191 mg/dL High 74-118 [facility] Comment on above: Performed By: #### 2 842622, [id number], 6855204 #### [facility] (DEFAULT) [address] [place] [address] 08743 Glucose [Mass/Vol] 129 mg/dL High 74-118 [facility] Comment on above: Performed By: #### 4 [id number] #### [facility] (DEFAULT) [address] [place] [address] 79322 Glucose [Mass/Vol] 119 mg/dL High 74-118 [facility] Comment on above: Performed By: #### 4 [id number] #### [facility] (DEFAULT) [address] [place] [address] 72441 Glucose [Mass/Vol] 193 mg/dL High 74-118 [facility] Comment on above: Performed By: #### 4 [id number] ####[facility] (DEFAULT)[address] [place] [address] 74035 Glucose [Mass/Vol] 294 mg/dL High 74-118 [facility] Comment on above: Performed By: #### 7 [id number], [id number] #### [facility] (DEFAULT) [address] [place] [address] 18494 Glucose [Mass/Vol] 362 mg/dL High 74-118 [facility] Comment on above: Performed By: #### 7 [id number], [id number] #### [facility] (DEFAULT) [address] [place] [address] 92040 Glucose [Mass/Vol] 234 mg/dL High 74-118 [facility] Comment on above: Performed By: #### 2 353150, [id number], 6352762 #### [facility] (DEFAULT) [address] [place] [address] 21659 Glucose [Mass/Vol] 185 mg/dL High 74-118 [facility] Comment on above: Performed By: #### 4 [id number] ####[facility] (DEFAULT)[address] [place] [address] 26596 Glucose [Mass/Vol] 165 mg/dL High 74-118 [facility] Comment on above: Performed By: #### 4 [id number] #### [facility] (DEFAULT) [address] [place] [address] 32636 Phoson 06-13-2023 Phosphate [Mass/Vol] 2.3 mg/dL Low 2.5-4.6 [facility] Comment on above: Performed By: #### 2 882264, [id number], 0970865 #### [facility] (DEFAULT) [address] [place] [address] 48667 Phosphate [Mass/Vol] 2.2 mg/dL Low 2.5-4.6 [facility] Comment on above: Performed By: #### 2 491305, [id number], 9871193 ####[facility] (DEFAULT)[address] [place] [address] 46532 Phosphate [Mass/Vol] 2.5 mg/dL Normal 2.5-4.6 [facility] Comment on above: Performed By: #### 2 605440, [id number], 3056884 ####[facility] (DEFAULT)[address] [place] [address] 15080 Progress Note - Nurseon 05-30 Progress Note - Nurse Patient left AMA. Patient wanted to leave today. Dr. Payne wanted to keep her til tomorrow. She is out of her medications. [Electronically Signed on: 06/13/2023 10:30 EST] Aster Bernal RN [Verified on: 06/13/2023 10:30 EST] Aster Bernal RN [facility] Progress Note - Nurse Patient called Connor harkins the dietitian about getting more food. Anusha showed up to her room and discussed what she needs to do to control her blood sugars. They made a plan of her meals and what she should eat and what she needs to avoid. [Electronically Signed on: 06/13/2023 10:32 EST] Aster Bernal RN [Verified on: 06/13/2023 10:32 EST] Aster Bernal RN [facility] Progress Note - Nurse Patient states thea t she feels like her blood sugar is very low and wants something to eat. RN educated patient her POC is 165 and she will notify the MD and wait to eat until RN speaks to Dr. Payne. Patient is alert and oriented x 4, no SOB, no CP, no abdominal pain, and skin is warm and dry. Patient verbalized and demonstrated understanding. RN notified MD via phone-Dr. Payne verbalized orders and placed orders Patient is to.... 1. remain on current diet, 2. change IVF from LR at 125ml/hr to D51/2NS at 150ml/hr, 3. give 20 units of Levemir subq at 0500 4. stop Insulin and D51/2NS gtts at this time. RN continued to follow orders per DKA protocol-see flowsheets. [Electronically Signed on: 06/13/2023 06:55 EST] Zenaida Yarbrough RN [Verified on: 06/13/2023 06:55 EST] Zenaida Yarbrough RN Normal [facility] Trigon 06-13-2023 Triglyceride [Mass/Vol] 177.0 mg/dL High 0.0-150.0 [facility] Comment on above: Performed By: #### 2 966590, [id number], [id number] #### [facility] (DEFAULT) [address] [place] [address] .Auto Diff 1on 06-12-2023 Auto Archer % 2 % Normal 07-11 [facility] Comment on above: Performed By: #### 1 8645930, [id number], 0413460538, 0132487961, 0021930, 1174493528, 7761255672, 1830038844, 1966904555 ####[facility] (DEFAULT)[address] [place] [address] Baso Abs# 0.1 x10 Normal 0.0-0.2 [facility] Comment on above: Performed By: #### 1 1083540, [id number], 4269706593, 1965391181, 9169152, 1059271324, 7610939250, 1873856404, 8170585361 ####[facility] (DEFAULT)[address] [place] [address] Basophils/100 WBC (Bld) 1.1 % Normal 0.2-2.0 [facility] Comment on above: Performed By: #### 1 7378049, 9620790438, 0416485418, 5791813247, 2697907, 4263694585, 1243928290, 4888831857, 1014779894 ####[facility] (DEFAULT)[address] [place] [address] Eos Abs# 0.0 x10 Normal 0.0-0.4 [facility] Comment on above: Performed By: #### 1 6474912, 3766281547, 8225381030, 4114438153, 0031127, 6823992127, 2135153924, 5053277678, 0342315207 ####[facility] (DEFAULT)[address] [place] [address] 86462 Eosinophils/100 WBC (Bld) 0.6 % Low 0.9-4.0 [facility] Comment on above: Performed By: #### 1 7720872, 3251923939, 7289460039, 1834858406, 0517533, 0470918301, 2572805637, 8885544915, 1957327818 ####[facility] (DEFAULT)[address] [place] [address] 29626 Lymph Abs# 0.9 x10 Low 1.3-2.9 [facility] Comment on above: Performed By: #### 1 1295345, 0957432632, 6380022031, 9786768719, 3390005, 6892992783, 3738787532, 9773630494, 8035880777 ####[facility] (DEFAULT)[address] [place] [address] 35994 Lymphocytes/100 WBC (Bld) 14 % Normal 14-48 [facility] Comment on above: Performed By: #### 1 1395410, 3377004796, 9041147129, 8983766462, 8543216, 5024186144, 3538403301, 2726827821, 8086679044 ####[facility] (DEFAULT)[address] [place] [address] 26359 Archer Abs# 0.2 x10 Normal 0.0-0.8 [facility] Comment on above: Performed By: #### 1 7476628, 2138707981, 1914239487, 3544983858, 5150782, 4145438156, 0746075706, 6098457702, 9709419809 ####[facility] (DEFAULT)[address] [place] [address] 62825 Neut Abs# 5.6 x10 Normal 1.5-9.2 [facility] Comment on above: Performed By: #### 1 5681167, 8609325714, 1819954215, 7977866646, 0568939, 0909792402, 6407234213, 7513818809, 5488288690 ####[facility] (DEFAULT)[address] [place] [address] 92032 Neutrophils/100 WBC (Bld) 82 % Normal 44-88 [facility] Comment on above: Performed By: #### 1 4545598, 6242154816, 7286529564, 9536726535, 2507598, 9329642126, 3129390087, 1361521208, 6740356238 ####[facility] (DEFAULT)[address] [place] [address] 11849 Arterial Blood Gas Standardo n 06-12-2023 Base Excess Art -17.3 mmol/L Low -3.3-2.3 [facility] Comment on above: Performed By: #### 2 388831, 9116686616, 9856857 #### [facility] (DEFAULT) [address] [place] [address] 81936 Breakpoint Hemo Normal [facility] Comment on above: Performed By: #### 2 950093, 8656380256, 4556092 #### [facility] (DEFAULT) [address] [place] [address] 16622 Device Room Air Normal [facility] Comment on above: Performed By: #### 2 202602, 1379784410, 7849863 #### [facility] (DEFAULT) [address] [place] [address] 42191 Fio2 Art 21.0 % Normal 21.0-100.0 [facility] Comment on above: Performed By: #### 2 045402, 1541608529, 2038711 #### [facility] (DEFAULT) [address] [place] [address] 32693 HCO3 (Bld) [Moles/Vol] 9.4 mmol/L Low 22.0-27.0 [facility] Comment on above: Performed By: #### 2 665123, 8892741374, 5213293 #### [facility] (DEFAULT) [address] [place] [address] 33981 Oxygen saturation in Blood 97.8 % Normal 95.0-100.0 [facility] Comment on above: Performed By: #### 2 883958, 3579562084, 9819462 #### [facility] (DEFAULT) [address] [place] [address] 99195 pCO2 Art 25 mmHg Low 34-44 [facility] Comment on above: Performed By: #### 2 909342, 7802974476, 8939686 #### [facility] (DEFAULT) [address] [place] [address] 33795 pH Art 7.18 Critically abnormal 7.37-7.44 [facility] Comment on above: Result Comment: Resu lts handed to Dr Uribe by on 06/12/2023 @ 1302, RBD Performed By: #### 2 684075, 8172469984, 4625760 #### [facility] (DEFAULT) [address] [place] [address] 11888 pO2 Art 118 mmHg High 75-100 [facility] Comment on above: Performed By: #### 2 197559, 6532549333, 6166159 #### [facility] (DEFAULT) [address] [place] [address] 66137 Puncture Site Right Brachial Normal [facility] Comment on above: Performed By: #### 2 787509, 5260469299, 4913450 #### [facility] (DEFAULT) [address] [place] [address] 21345 Rate: 20 Invalid Interpretation Code [facility] Comment on above: Performed By: #### 2 163533, 8097497341, 9990899 #### [facility] (DEFAULT) [address] [place] [address] 61615 BMP Standardon 06-12-2023 eGFR Non AA >60 Invalid Interpretation Code [facility] Comment on above: Order Comment: While on Insulin Drip Performed By: #### 2 579087, 5804114320, 2063645 #### [facility] (DEFAULT) [address] [place] [address] 03474 eGFR AA >60 Invalid Interpretation Code [facility] Comment on above: Order Comment: While on Insulin Drip Performed By: #### 2 146021, [id number], 1477536 #### [facility] (DEFAULT) [address] [place] [address] 92759 Anion gap [Moles/Vol] 7.9 mmol/L Normal 5.0-19.0 [facility] Comment on above: Order Comment: While on Insulin Drip Performed By: #### 2 511442, 2456079483, 8632038 #### [facility] (DEFAULT) [address] [place] [address] 12718 Calcium [Mass/Vol] 7.7 mg/dL Low 8.9-10.3 [facility] Comment on above: Order Comment: While on Insulin Drip Performed By: #### 2 258772, 9350130868, 9522632 #### [facility] (DEFAULT) [address] [place] [address] 76228 Chloride [Moles/Vol] 110 mmol/L Normal 101-111 [facility] Comment on above: Order Comment: While on Insulin Drip Performed By: #### 2 803019, 5886228116, 3174188 #### [facility] (DEFAULT) [address] [place] [address] 42108 CO2 [Moles/Vol] 19 mmol/L Low 21-32 [facility] Comment on above: Order Comment: While on Insulin Drip Performed By: #### 2 231606, 8655459312, 0535815 #### [facility] (DEFAULT) [address] [place] [address] 79078 Creatinine [Mass/Vol] 0.90 mg/dL Normal 0.60-1.30 [facility] Comment on above: Order Comment: While on Insulin Drip Performed By: #### 2 319912, 3907348198, 0402354 #### [facility] (DEFAULT) [address] [place] [address] 75427 Glucose [Mass/Vol] 361.0 mg/dL High 74.0-118.0 [facility] Comment on above: Order Comment: While on Insulin Drip Performed By: #### 2 568384, 4473147981, 8443160 #### [facility] (DEFAULT) [address] [place] [address] 63655 Osmolality 280 mOsm/L Invalid Interpretation Code [facility] Comment on above: Order Comment: While on Insulin Drip Performed By: #### 2 205551, [id number], 0110836 #### [facility] (DEFAULT) [address] [place] [address] 64614 Potassium [Moles/Vol] 3.9 mmol/L Normal 3.6-5.1 [facility] Comment on above: Order Comment: While on Insulin Drip Performed By: #### 2 771497, 3177877822, 7816483 #### [facility] (DEFAULT) [address] [place] [address] 06531 Sodium [Moles/Vol] 133.0 mmol/L Low 136.0-144.0 [facility] Comment on above: Order Comment: While on Insulin Drip Performed By: #### 2 909579, 5474964554, 1615543 #### [facility] (DEFAULT) [address] [place] [address] 40662 Urea nitrogen [Mass/Vol] 11 mg/dL Normal 8-26 [facility] Comment on above: Order Comment: While on Insulin Drip Performed By: #### 2 612180, 7427284980, 9715093 #### [facility] (DEFAULT) [address] [place] [address] Urea nitrogen/Creatinine [Mass ratio] 12.2 mg/mg Normal 4.6-16.2 [facility] Comment on above: Order Comment: While on Insulin Drip Performed By: #### 2 452149, 0858021798, 0926678 #### [facility] (DEFAULT) [address] [place] [address] 83097 Breakpoint Chem Normal [facility] Comment on above: Performed By: #### 1 4890239, 6734593500, 1060250636, 3734736118, 7615563, 8134599025, 8242470410, 1149606605, 3420719928 ####[facility] (DEFAULT)[address] [place] [address] 43171 eGFR Non AA >60 Invalid Interpretation Code [facility] Comment on above: Performed By: #### 1 0074583, 9317669950, 6490539726, 3394453152, 6455959, 6893100753, 9818317118, 6663072776, 9506876524 ####[facility] (DEFAULT)[address] [place] [address] 56864 eGFR AA >60 Invalid Interpretation Code [facility] Comment on above: Performed By: #### 1 7908352, 1256413649, 5395651637, 4784751631, 7305210, 5455263956, 8429248490, 2816550484, 7362516179 ####[facility] (DEFAULT)[address] [place] [address] 11999 Anion gap [Moles/Vol] 21.7 mmol/L High 5.0-19.0 [facility] Comment on above: Performed By: #### 1 2938286, 6675246048, 0112168761, 0236976697, 7811198, 7252749688, 0995639445, 1445024198, 8848186598 ####[facility] (DEFAULT)[address] [place] [address] 95480 Osmolality 286 mOsm/L Invalid Interpretation Code [facility] Comment on above: Performed By: #### 1 4680249, 8771791784, 6989904970, 4998905960, 4046514, 2852443223, 8446799806, 6528876808, 8292227572 ####[facility] (DEFAULT)[address] [place] [address] 17922 Urea nitrogen/Creatinine [Mass ratio] 15.0 mg/mg Normal 4.6-16.2 [facility] Comment on above: Performed By: #### 1 0671996, 5760192778, 7566484406, 9550217303, 6366005, 3286322675, 1168133190, 2058923899, 4897960297 ####[facility] (DEFAULT)[address] [place] [address] 48899 Calcium [Mass/Vol] 8.6 mg/dL Low 8.9-10.3 [facility] Comment on above: Performed By: #### 1 7556175, 0585749142, 3538805201, 4507174214, 3971363, 5452072006, 9432312533, 4392189552, 9220145770 ####[facility] (DEFAULT)[address] [place] [address] Chloride [Moles/Vol] 96 mmol/L Low 101-111 [facility] Comment on above: Performed By: #### 1 6432272, 5833061707, 9837572777, 7545574762, 0865482, 8843464485, 3523225399, 5435484213, 4303520332 ####[facility] (DEFAULT)[address] [place] [address] 91597 CO2 [Moles/Vol] 12 mmol/L Low 21-32 [facility] Comment on above: Performed By: #### 1 9246522, 0425175539, 3757208269, 9040264641, 4103295, 1115777504, 0988645355, 0431735330, 8966194984 ####[facility] (DEFAULT)[address] [place] [address] 32325 Creatinine [Mass/Vol] 0.93 mg/dL Normal 0.60-1.30 [facility] Comment on above: Performed By: #### 1 7010658, 0534302611, 9296436792, 6665338257, 4455771, 9746611919, 9812089697, 7437782081, 5697837262 ####[facility] (DEFAULT)[address] [place] [address] 58907 Glucose [Mass/Vol] 708.0 mg/dL Critically abnormal 74.0-118.0 [facility] Comment on above: Result Comment: Crit ical result GLU 708 mg/dL called to and read back by jony sykes rn at 12-Jun-2023 13:52 by Frank. Performed By: #### 1 8671426, 1229201527, 3378358007, 8588981565, 6254302, 4723605025, 5371048438, 3742052709, 3664319424 ####[facility] (DEFAULT)[address] [place] [address] Potassium [Moles/Vol] 4.7 mmol/L Normal 3.6-5.1 [facility] Comment on above: Performed By: #### 1 0743067, 3911826775, 9500066668, 2298085150, 8751294, 2130318992, 1333063137, 1526380110, 7762089333 ####[facility] (DEFAULT)[address] [place] [address] Sodium [Moles/Vol] 125.0 mmol/L Low 136.0-144.0 [facility] Comment on above: Performed By: #### 1 0938418, 2554487734, 7463851889, 9123535899, 5541540, 5269359743, 7011985485, 8077297627, 2488243256 ####[facility] (DEFAULT)[address] [place] [address] Urea nitrogen [Mass/Vol] 14 mg/dL Normal 8-26 [facility] Comment on above: Performed By: #### 1 6420237, 9024248115, 8229588627, 6847087871, 2454976, 0353508732, 7195454116, 7644026272, 5108199798 ####[facility] (DEFAULT)[address] [place] [address] CBC w/ Auto Diffon 3 Erythrocyte distribution width (RBC) [Ratio] 15.0 % Normal 11.5-15.0 [facility] Comment on above: Performed By: #### 1 5054214, [id number], 9448293977, 4111671116, 2201174, 5104736228, 1762206235, 4856312952, 1555798051 ####[facility] (DEFAULT)[address] [place] [address] Hematocrit (Bld) [Volume fraction] 39.0 % Normal 33.7-40.4 [facility] Comment on above: Performed By: #### 1 3502807, [id number], 4750921842, 6739854516, 0841550, 0863815383, 1779085350, 3991329164, 5861757256 ####[facility] (DEFAULT)[address] [place] [address] Hemoglobin (Bld) [Mass/Vol] 12.3 g/dL Normal 11.3-15.9 [facility] Comment on above: Performed By: #### 1 3015546, 2153151077, 8487833154, 7507973696, 9923584, 1850658964, 9383267019, 8722643071, 3930196724 ####[facility] (DEFAULT)[address] [place] [address] Man Diff? Auto Invalid Interpretation Code [facility] Comment on above: Performed By: #### 1 5805095, 5500581596, 8748632968, 0886853550, 1157280, 7450111773, 3622625089, 5993731617, 8282700144 ####[facility] (DEFAULT)[address] [place] [address] 33753 MCH (RBC) [Entitic mass] 26 pg Normal 24-34 [facility] Comment on above: Performed By: #### 1 9441516, 1783733824, 4659601222, 5086160096, 0774907, 1629438442, 3361383974, 0104325208, 0325294762 ####[facility] (DEFAULT)[address] [place] [address] 09483 MCHC (RBC) [Mass/Vol] 32 g/dL Normal 26-37 [facility] Comment on above: Performed By: #### 1 8897122, 4612802229, 3525747547, 9731773067, 2997941, 3336865812, 1639612108, 9911260406, 5421701887 ####[facility] (DEFAULT)[address] [place], [place] [address] MCV (RBC) [Entitic vol] 82 fL Normal 81-100 [facility] Comment on above: Performed By: #### 1 6120735, 1508778073, 6249545122, 4304633039, 0542566, 8422833346, 0796638378, 1302550474, 2707541815 ####[facility] (DEFAULT)[address] [place] [address] 14647 Platelet 393 x10 Normal 138-427 [facility] Comment on above: Performed By: #### 1 8929375, 3454807208, 3425562074, 8697247329, 1918473, 3437822289, 3372441212, 5885755116, 9451564501 ####[facility] (DEFAULT)[address] [place] [address] 15928 Platelet mean volume (Bld) [Entitic vol] 7.9 fL Normal 6.3-10.2 [facility] Comment on above: Performed By: #### 1 5691045, 7190896735, 2794302346, 2944036221, 6462404, 9800172517, 2262712726, 8990136392, 8821501276 ####[facility] (DEFAULT)[address] [place] [address] 89246 RBC 4.73 x10 Normal 3.70-5.30 [facility] Comment on above: Performed By: #### 1 6637139, 9790190522, 8909137434, 1269569217, 9238789, 8989020005, 4834049348, 3640598774, 3210754594 ####[facility] (DEFAULT)[address] [place] [address] 01310 WBC 6.9 x10 Normal 3.5-10.5 [facility] Comment on above: Performed By: #### 1 9309889, 0282282062, 5486931317, 0832785374, 5369162, 6001564465, 7435603353, 9946231203, 5979763286 ####[facility] (DEFAULT)[address] [place] [address] 97480 ED Clinical Summaryon 2022 ED Clinical Summary [facility] - Emergency Department [address] [place] [address] 63896 ED Clinical Summary PERSON INFORMATION Name: DOUGLAS CORDOVA Age: 28 Years Sex: FEMALE : 1995 MRN: Acct#: Visit Reason: Increased blood sugar; Vomiting; DKA Arrival: 06/12/2023 12:23:19 Discharge: LOS: 000 03:18 Check In: 06/12/2023 12:23:19 Checkout:06/12/2023 15:41:26 Address: [address] [facility] [address] PCP: ARCADIO IGLESIAS PROVIDER INFORMATION Provider Role Assigned Unassigned Warner Rutledge RN ED Nurse 06/12/2023 12:34:17 Jaun Uribe MD ED Provider 06/12/2023 13:16:48 VITALS INFORMATION Vital Sign Triage Latest Temperature Tympanic Temperature Temporal Artery 36.4 DegC Pulse Rate 98 bpm 94 bpm O2 Sat 100 % 100 % Respiratory Rate 18 br/min 18 br/min Blood Pressure /93 mmHg /93 mmHg MEDICAL INFORMATION Medications Given: Medication Dose Route Sodium Chloride 0.9% intravenous solution 1,000 mL 1000 mL Initial Volume 1000 mL/hr IV Left Antecubital Fossa Sodium Chloride 0.9% intravenous solution 1,000 mL 1000 mL 1000 mL Initial Volume 1000 mL/hr IV Left Antecubital Fossa Sodium Chloride 0.9% intravenous solution 1,000 mL 1000 mL 1000 mL Initial Volume 1000 mL/hr IV Left Antecubital Fossa insulin regular 100 unit(s) + Sodium Chloride 0.9% intravenous solution 100 mL (Novolin R additive 100 unit(s) + Sodium Chloride 0.9% intravenous solution 100 mL) 100 mL Initial Volume 6 mL/hr IV Left Antecubital Fossa insulin regular 100 unit(s) + Sodium Chloride 0.9% intravenous solution 100 mL (Novolin R additive 100 unit(s) + Sodium Chloride 0.9% intravenous solution 100 mL) 100 mL Initial Volume 6 mL/hr IV Left Antecubital Fossa Allergy Information: shellfish; penicillin PHYSICIAN DOCUMENTATION DISCHARGE INFORMATION: Discharge Disposition: Admitted as Observation Discharge Location: PATIENT EDUCATION INFORMATION Instructions: Follow-Up: DIAGNOSIS: 1:Diabetic ketoacidosis Patient Understands: Yes - Patient/family/careg iver verbalizes understanding of instructions given Comment: [facility] ED Patient Education Noteon 06-12-2023 ED Patient Education Note Education Materials [facility] ED Patient Summaryon 023 ED Patient Summary [facility] - Emergency Department [address] [place] [address] 64067 PATIENT DISCHARGE INSTRUCTIONS Patient Information Name: DOUGLAS CORDOVA Age: 28 Years Date of : 1995 Reason For Visit: Increased blood sugar; Vomiting; DKA Arrival Time: 06/12/2023 12:23:19 Primary Care Physician: ARCADIO IGLESIAS Attending Physician: Maxi Payne MD Comment: Visit Diagnosis: Diagnoses This Visit Diabetic ketoacidosis (E11.10) Increased blood sugar ([id number]) Vomiting ([id number]) The Pharmacy at [facility] is open Friday through Friday from 9A to 6P and Friday and Friday from 9A to 5P Prescription Information: If you have been given a prescription for narcotics, seek immediate medical attention if you have any difficulty breathing or any sudden status changes such as confusion and sleepiness. If you or anyone you know is experiencing suicidal thoughts, mental health, alcohol and/or drug addiction problems; contact the [facility] 20/01 Crisis Hotline -Text 6QDIB vi [phone]. If you received any narcotics, sedation, or any other medication that causes drowsiness for the next 24 hours, unless otherwise directed: ? Do not drive a car. ? Do not operate machinery such as power tools, lawn mowers, drills, sewing machines, or stoves ? Avoid alcoholic beverages and drugs for allergies, nerves, or sleep ? Do not make important personal or business decisions or sign any legal documents Medication Information: The exam and treatment you received today in the [facility] Emergency Department were for an urgent problem and are not intended as complete care. It is important for you to follow up with a doctor, nurse practitioner, or physician?s assistant press operator for ongoing care. If your symptoms become worse or you do not improve as expected and you are unable to reach your usual health care provider, you should return to the Emergency Department, we are available 24 hours a day. For those patients who have received Radiology results, the interpretation of your X-ray as given to you by our Emergency Department physician is only a preliminary report. The Radiologist will review your films and if there is a change in the diagnosis you will be notified by phone. Please make sure you have provided a working phone number so we can reach you if necessary. In the event that you had a lab culture while you were a patient in the Emergency Department, you will be notified by phone if there is a need to change your antibiotic. Please make sure you have provided a working phone number so we can reach you if necessary. [facility] Emergency Department has provided you with a complete list of medications post discharge. Please inform your ribbon blockmaker/provider of your visit and for further instruction on these medications. Any specific questions regarding your chronic medications and dosages should be discussed with your primary care physician(s) and/or pharmacist. Medications to Continue That Have Not Changed Other Medications amphetamine-dextroam phetamine (amphetamine-dextroa mphetamine 30 mg oral capsule, extended release) 1 cap(s) Oral (given by mouth) every day. carisoprodol (carisoprodol 350 mg oral tablet) 1 tab(s) Oral (given by mouth) 3 times a day. Durable Medical Equipment for Prescription ([employer] DASH PODS (GEN 4) 5PK) change q 72 hours. gabapentin (gabapentin 800 mg oral tablet) 1 tab(s) Oral (given by mouth) 3 times a day. insulin lispro (HumaLOG 100 units/mL injectable solution) tiZANidine (tiZANidine 4 mg oral tablet) 1 tab(s) Oral (given by mouth) 3 times a day. Visit Information Allergies: Substance Reaction Symptoms Type Comments penicillin Drug shellfish Food Vital Signs: Vitals and Measurements this Visit (last charted value for your 06/12/2023 visit) Vital Signs This Visit Temperature Temporal Artery: 36.4 DegC Peripheral Pulse Rate: 94 bpm Respiratory Rate: 18 br/min Systolic Blood Pressure: 133 mmHg Diastolic Blood Pressure: 88 mmHg Mean Arterial Pressure Cuff-Monitor: 102 mmHg SpO2: 100 % Oxygen Therapy: Room air Measurements This Visit Height/Length Estimated: 172.7 cm Weight Estimated: 59 kg Body Mass Index Estimated: 19.78 kg/m2 Problems List: Problem Onset Comments Tobacco user Patient Education Viruses or Bacteria What?s got you sick? Antibiotics only treat bacterial infections. Viral illnesses cannot be treated with antibiotics. When an antibiotic is not prescribed, ask your healthcare professional for tips on how to relieve symptoms and feel better. Usual Cause Illness Viruses Bacteria Antibiotic Needed Cold/Runny Nose ? NO Bronchitis/Chest Cold (in otherwise healthy children and adults) ? NO Whooping Cough ? Yes Flu ? NO Strep Throat ? Yes Sore Throat (except strep) ? NO Flui (more content not included)... Normal [facility] Extra [facility] 06-12-2023 Tube Collected Yes Invalid Interpretation Code [facility] Comment on above: Performed By: #### 1 3035846, 5896681582, 9102161105, 3725271557, 1205839, 1535612217, 2827648025, 1516490026, 8460320412 ####[facility] (DEFAULT)[address] [place] [address] 76491 Extra [facility] 06-12-2023 Tube Collected Yes Invalid Interpretation Code [facility] Comment on above: Performed By: #### 2 682880, [id number], 6118321 #### [facility] (DEFAULT) [address] [place] [address] 85179 Hepatic Function Panel [facility] 06-12-2023 Albumin/Globulin [Mass ratio] 1.2 {ratio} Low 1.4-2.6 [facility] Comment on above: Performed By: #### 1 9081709, 6620946266, 5984270424, 7083134238, 5896356, 7104259891, 5595288769, 3715798176, 1112387598 ####[facility] (DEFAULT)[address] [place] [address] 25687 Bili Indirect 2.1 mg/dL High 0.2-0.8 [facility] Comment on above: Performed By: #### 1 5791841, 1236315558, 8818577818, 8491786416, 9440101, 7891500439, 6133620546, 5634167159, 4571265299 ####[facility] (DEFAULT)[address] [place] [address] 84076 Globulin (S) [Mass/Vol] 3.6 g/dL Normal 1.5-4.3 [facility] Comment on above: Performed By: #### 1 8536598, 8877798714, 7197441880, 5307184187, 7448251, 3028970270, 8044778249, 7595775620, 0039801010 ####[facility] (DEFAULT)[address] [place] [address] 32919 Albumin [Mass/Vol] 4.6 g/dL Normal 3.5-5.0 [facility] Comment on above: Performed By: #### 1 1168592, 9410777222, 2953228863, 5660500584, 5928317, 6370640362, 2484377452, 7583665240, 4509750761 ####[facility] (DEFAULT)[address] [place] [address] Alk Phos 90 IU/L Normal 32-91 [facility] Comment on above: Performed By: #### 1 8002360, 2941714623, 4102050479, 6152092799, 5780980, 9930972068, 1647195035, 8174823978, 4051541655 ####[facility] (DEFAULT)[address] [place] [address] ALT [Catalytic activity/Vol] 27.0 U/L Normal 14.0-54.0 [facility] Comment on above: Performed By: #### 1 9308305, 1731603224, 5321748517, 9265448184, 7013969, 7103611576, 1235929251, 5940863346, 2555176235 ####[facility] (DEFAULT)[address] [place] [address] AST [Catalytic activity/Vol] 17 U/L Normal 15-41 [facility] Comment on above: Performed By: #### 1 2125626, 5688131272, 5773835189, 1365974654, 0433761, 5590200461, 3561207850, 3694310316, 1298174885 ####[facility] (DEFAULT)[address] [place] [address] Bili Direct 0.10 mg/dL Normal 0.10-0.50 [facility] Comment on above: Performed By: #### 1 0309917, 6642090179, 5361564995, 1252238262, 4415355, 5070167738, 5556528985, 5679766681, 9237231845 ####[facility] (DEFAULT)[address] [place] [address] 43932 Bili Total 2.2 mg/dL High 0.3-1.2 [facility] Comment on above: Performed By: #### 1 7430895, 2567257098, 6383633222, 3892400770, 8547741, 9757467583, 7751112254, 5978974293, 6750401980 ####[facility] (DEFAULT)[address] [place] [address] 32506 Protein [Mass/Vol] 8.2 g/dL High 6.5-8.1 [facility] Comment on above: Performed By: #### 1 9466363, 0009287477, 1900365867, 6497201101, 0086553, 6791229176, 4916273051, 2361371987, 4031581787 ####[facility] (DEFAULT)[address] [place] [address] 07658 Ketone Serumon 06-12-2023 Ketone Serum Negative Normal Negative [facility] Comment on above: Performed By: #### 7 455487966, 5046447014 #### [facility] (DEFAULT) [address] [place] [address] 72461 Lactic Acidon 06-12-2023 Lactic Acid 9.7 mg/dL Normal 4.5-19.8 [facility] Comment on above: Performed By: #### 2 923786 ####[facility] (DEFAULT)[address] [place] [address] 34495 Lipid Panel Standard, Non-Fa stingon 06-12-2023 Cholesterol [Mass/Vol] 285.0 mg/dL High 66.0-200.0 [facility] Comment on above: Performed By: #### 1 9159427, 3124612961, 4386228623, 8221820139, 9314316, 2953713973, 6400280879, 0187899319, 8150366792 ####[facility] (DEFAULT)[address] [place] [address] 65167 Cholesterol in HDL [Mass/Vol] 43 mg/dL Normal 40-71 [facility] Comment on above: Performed By: #### 1 4669205, 5882504987, 3757527289, 7521440539, 5214167, 8196650775, 2012131648, 5558240646, 6500770222 ####[facility] (DEFAULT)[address] [place] [address] 91739 Cholesterol.total/Choles terol in HDL [Mass ratio] 6.6 {ratio} High 0.0-4.5 [facility] Comment on above: Performed By: #### 1 8336195, 5448956694, 4257482612, 3274984005, 6972827, 2296262854, 1241821106, 8732918724, 8800410495 ####[facility] (DEFAULT)[address] [place] [address] 44242 LDL See Comment Invalid Interpretation Code 1100 [facility] Comment on above: Performed By: #### 1 4253409, 2489828483, 5596598666, 5540561163, 5140727, 2644114505, 8580205439, 2199708998, 0405845240 ####[facility] (DEFAULT)[address] [place] [address] 76293 Triglyceride [Mass/Vol] 855.0 mg/dL High 0.0-150.0 [facility] Comment on above: Performed By: #### 1 5991104, 9114412961, 1054818282, 3229256806, 7394947, 6318289980, 6254542886, 6272197051, 1451087472 ####[facility] (DEFAULT)[address] [place] [address] 80222 VLDL. See Comment2 Invalid Interpretation Code 540 [facility] Comment on above: Performed By: #### 1 2153128, 3885863680, 8556563176, 1448684440, 2260113, 6631917523, 5813347944, 4257660544, 7777378574 ####[facility] (DEFAULT)[address] [place] [address] 46956 Magnesiumon 06-12-2023 Magnesium [Mass/Vol] 1.91 mg/dL Normal 1.80-2.50 [facility] Comment on above: Order Comment: While on Insulin Drip Performed By: #### 2 826586, 5642729271, 4772768 #### [facility] (DEFAULT) [address] [place] [address] 92715 POCT Glucose Levelon 023 Glucose [Mass/Vol] 216 mg/dL High [address] [place] [address] Comment on above: Performed By: #### 4 [id number] ####[facility] (DEFAULT)[address] [place] [address] 95131 Glucose [Mass/Vol] 250 mg/dL High [address] [place] [address] Comment on above: Performed By: #### 4 [id number] ####[facility] (DEFAULT)[address] [place] [address] 97489 Glucose [Mass/Vol] 309 mg/dL High [address] [place] [address] Comment on above: Performed By: #### 7 890923165, 6467161844 #### [facility] (DEFAULT) [address] [place] [address] 17561 Glucose [Mass/Vol] 349 mg/dL High [address] [place] [address] Comment on above: Performed By: #### 2 894813, 1779908465, 2098421 #### [facility] (DEFAULT) [address] [place] [address] 49858 Glucose [Mass/Vol] 447 mg/dL Critically abnormal [address] [place] [address] Comment on above: Performed By: #### 4 [id number] ####[facility] (DEFAULT)[address] [place] [address] 28619 Glucose [Mass/Vol] 520 mg/dL Critically abnormal [address] [place] [address] Comment on above: Performed By: #### 4 [id number] ####[facility] (DEFAULT)[address] [place] [address] 51889 Pharmacy Noteon 06-12-2023 Pharmacy Note The following medications(s) has been reviewed for renal dose adjustment per P &T protocol based on the patient's current creatinine clearance: Medication: Enoxaparin 40mg subq daily Estimated CrCl: 86.6 ml/min _ Action: No change required Changes Made: [Electronically Signed on: 06/12/2023 15:41 EST] Emmanuel Hendrix [Verified on: 06/12/2023 15:41 EST] Emmanuel Hendrix [facility] 06-12-2023 Phosphate [Mass/Vol] 2.6 mg/dL Normal 2.5-4.6 [facility] Comment on above: Performed By: #### 2 637501, 4811359544, 3268521 #### [facility] (DEFAULT) [address] [place] [address] 12767 Phosphate [Mass/Vol] 4.1 mg/dL Normal 2.5-4.6 [facility] Comment on above: Order Comment: add o n Performed By: #### 2 777373 ####[facility] (DEFAULT)[address] [place] [address] 16049 Test Urine 1on U Preg Negative [facility] Comment on above: Performed By: #### 3 [id number] ####[facility] (DEFAULT)[address] [place] [address] 21934 U Preg Internal Control Pass [facility] Comment on above: Performed By: #### 3 [id number] ####[facility] (DEFAULT)[address] [place] [address] 38208 Progress Note - Nurseon 05-30 Progress Note - Nurse Dr Payne notifi ed about pt Labs values and asked about currently LR infusion, if he would like to change fluids per the DKA protocol. gave order to keep the current LR infusion. No additional orders given at this time. [Electronically Signed on: 06/12/2023 20:04 EST] Michelle Gallegos RN [Verified on: 06/12/2023 20:04 EST] Michelle Gallegos RN Normal [facility] Rapid HIV.on 06-12-2023 HIV. Negative Normal Negative [facility] Comment on above: Performed By: #### 2 300396, 4896587069, 8049824 #### [facility] (DEFAULT) [address] [place] [address] 47862 Internal Control Pass Normal [facility] Comment on above: Performed By: #### 2 183484, 3252008588, 9592216 #### [facility] (DEFAULT) [address] [place] [address] 51198 TnI HSon 06-12-2023 Troponin I High Sensitivity 87.9 pg/mL Critically abnormal <=15.0 [facility] Comment on above: Result Comment: Crit ical result TNIHS 87.9 pg/mL called to and read back by Elza Gallegos RN at 12-Jun-2023 17:18 by PREET. Performed By: #### 2 735445, 1686828857, 9441137 #### [facility] (DEFAULT) [address] [place] [address] 10245 Troponin I High Sensitivity 109.0 pg/mL Critically abnormal <=15.0 [facility] Comment on above: Result Comment: Crit ical result TNIHS 109.0 pg/mL called to and read back by heath sykes rn at 12-Jun-2023 13:53 by Frank. Performed By: #### 1 3533648, 0888057114, 3675222656, 7888931914, 0275213, 8601337433, 3379800773, 1778576175, 2030368662 ####[facility] (DEFAULT)[address] [place] [address] 67365 Triage Panel 1206-12-2023 Triage Internal Control Pass Normal [facility] Comment on above: Performed By: #### 1 [id number], [id number] ####[facility] (DEFAULT)[address] [place] [address] 59026 U Amph Scr Negative [facility] Comment on above: Performed By: #### 1 088855703, [id number] ####[facility] (DEFAULT)[address] [place] [address] 64901 U Landy Scr Negative [facility] Comment on above: Performed By: #### 1 [id number], [id number] ####[facility] (DEFAULT)[address] [place] [address] 97270 U Benzodia Scr Negative [facility] Comment on above: Performed By: #### 1 453794836, [id number] ####[facility] (DEFAULT)[address] [place] [address] 64112 U Cannab Scrn Negative [facility] Comment on above: Performed By: #### 1 210377877, [id number] ####[facility] (DEFAULT)[address] [place] [address] 56879 U Cocaine Scr Negative [facility] Comment on above: Performed By: #### 1 639897650, [id number] ####[facility] (DEFAULT)[address] [place] [address] 23077 U Methadone Scr Negative [facility] Comment on above: Performed By: #### 1 [id number], [id number] ####[facility] (DEFAULT)[address] [place] [address] 70954 U Methamp Scrn Negative [facility] Comment on above: Performed By: #### 1 [id number], [id number] ####[facility] (DEFAULT)[address] [place] [address] 08888 U Opiate Scr Negative [facility] Comment on above: Performed By: #### 1 [id number], [id number] ####[facility] (DEFAULT)[address] [place] [address] U Oxycod Scr Negative Normal [facility] Comment on above: Performed By: #### 1 [id number], [id number] ####[facility] (DEFAULT)[address] [place] [address] 77925 U Phencyclidine Scr Negative Normal [facility] Comment on above: Performed By: #### 1 668722494, [id number] ####[facility] (DEFAULT)[address] [place] [address] 13050 U Tricyclic Antidepress Scr Negative Normal [facility] Comment on above: Result Comment: Resu lts are to be used only for medical (ie, treatment) purposes only. Positive tests will not be sent out for confirmation. PROFILE?-V MEDTOX Scan? Drugs of Abuse Test System detects drug classes at the following cutoff concentrations: AMP Amphetamine (d-amphetamine): 500 ng/mL BAR Barbituates (Butabital): 200 ng/mL BZO Benzodiazepines (Nordiazepam): 150 ng/mL BUP Buprenorphine (Buprenorphine): 10 ng/mL KRISTINA Cocaine (Benzoylecgonine): 150 ng/mL MAMP Methamphetamine (d-Methamphetamine): 500 ng/mL MTD Methadone (Methadone): 200 ng/mL OPI Opiates (Morphine): 100 ng/mL or 2000 ng/mL OXY Oxycodone (Oxycodone): 100 ng/mL PCP Phencyclidine (Phencyclidine): 25 ng/mL PPX Propoxyphene (Norpropoxyphene): 300 ng/mL THC Cannabinoids (65-hll-4-carboxy- -THC): 50 ng/mL TCA Tricyclic-Antidepressants (Desipramine): 300 ng/mL Performed By: #### 1 [id number], [id number] ####[facility] (DEFAULT)[address] [place] [address] 47432 UA Standardon 06-12-2023 Breakpoint UA Normal [facility] Comment on above: Performed By: #### 1 [id number], [id number] ####[facility] (DEFAULT)[address] [place] [address] Color (U) Yellow Normal [facility] Comment on above: Performed By: #### 1 [id number] ####[facility] (DEFAULT)[address] [place] [address] Glucose (U) [Mass/Vol] mg/dL Normal [facility] Comment on above: Performed By: #### 1 [id number], [id number] ####[facility] (DEFAULT)[address] [place] [address] Ketones Ql (U) >=80 Normal [facility] Comment on above: Performed By: #### 1 [id number], [id number] ####[facility] (DEFAULT)[address] [place] [address] UA Bilirubin Negative Normal [facility] Comment on above: Performed By: #### 1 [id number], [id number] ####[facility] (DEFAULT)[address] [place] [address] UA Blood Negative Normal NEGATIVE [facility] Comment on above: Performed By: #### 1 [id number], [id number] ####[facility] (DEFAULT)[address] [place] [address] UA Clarity CLEAR Normal CLEAR [facility] Comment on above: Performed By: #### 1 [id number], [id number] ####[facility] (DEFAULT)[address] [place] [address] UA Leuk Est Negative Normal NEGATIVE [facility] Comment on above: Performed By: #### 1 [id number], [id number] ####[facility] (DEFAULT)[address] [place] [address]42 UA Nitrite Negative Normal NEGATIVE [facility] Comment on above: Performed By: #### 1 [id number], [id number] ####[facility] (DEFAULT)[address] [place] [address] 26655 UA pH 5.5 Normal 5-8 [facility] Comment on above: Performed By: #### 1 [id number], [id number] ####[facility] (DEFAULT)[address] [place] [address]58 UA Protein Negative Normal NEGATIVE [facility] Comment on above: Performed By: #### 1 [id number], [id number] ####[facility] (DEFAULT)[address] [place] [address] 87649 UA Spec Grav 1.020 Normal 1.001-1.035 [facility] Comment on above: Performed By: #### 1 [id number], [id number] ####[facility] (DEFAULT)[address] [place] [address] UA Urobilinogen 0.2 mg/dL Normal 0.2-1.0 [facility] Comment on above: Performed By: #### 1 [id number], [id number] ####[facility] (DEFAULT)[address] [place] [address]23 Urine Source Clean Catch Normal [facility] Comment on above: Performed By: #### 1 [id number], [id number] ####[facility] (DEFAULT)[address] [place] [address] 85221 Venous pHon 06-12-2023 pH Denis 7.37 Normal 7.37-7.44 [facility] Comment on above: Performed By: #### 1 [id number] ####[facility] (DEFAULT)[address] [place] [address] 20205 XR Chest 1 View Frontalon XR Chest 1 View Frontal CLINICAL HISTORY : Chest pain. TECHNIQUE: One view of the chest COMPARISON: 03/17/2023. RESULT: No focal consolidation. No pleural effusion. No pneumothorax. Normal cardiomediastinal silhouette. No acute osseous findings. IMPRESSION: No acute radiographic abnormality. Final Signed (Electronic Signature): Benton Minor MD 06/12/23 1:52 pm Technologist: Celena DEAL [facility] Coding Summaryon 06-09-2023 Coding Summary HTMLBase 64 KrkjenrgEIz7yQt+PGhl YWQ+FW1PLGIyJ40drWUn fE0fB2HKNMwORtimGBVV YJcSUpVhpgIfJM4rtCNj ZXJu IC8+WA7tEGFaAzwlbPHd j3G4qWW0X45knk7uUUsu uSZ6XFEyOsVdduifh1ez lMj1EHzbEsyvMxYv UGLjhD76OUF3wR03Lm83 oCEugUBdz0kwtKd5YmWs OEKfOBZ8sKpwBRxjv1Wg AZTvQ79jhBLcp9C7 IGNvbGxhcHNlOyBlbXB0 uU4tMBglipjnv6ruedju Zkk1mw32oNPia2N8vFO8 C7DmmfB7TYPssFZp EngwrZESpP5kkroba5cb wbuuBqCsXGOsSJz8WZm4 ZDUkfZymZvGnLX60IEG1 LUEygzJgH3LeVEMl eZpqXzY7h7Z3Jf7VS7VT ZjnjY9RNNZVAOSsnrPL+ WN75kt58L6UqUkebPkr3 MUEaIPL0sYP3iR7e CKQxFElxe1B5iXP9N0Hb zeQnso7cq6diGPDtEQgr R03qjOEor4P0TFWbaSE6 EEYntSxaBfVjkT82 Oyc+LQBceKijq1InPdnv b8inj9nmwXl8VvnmQOHe miXzoChdYDF7y1LmTb2j NVSbtAN9nAH6aQ5w SySnNaC1UZoeS584RtKq aYVsQggkR70gS5CtqYO+ EVLySaq4DCUayRwxZK3v P7BnDBTthygpoREi xUyzCN9lHFJtlcgkIYYm fN4hNRPqL7q2MqWdHtI9 OFotC5HuLJTjzptzTq57 tC2xAaBqBxP6ZZuc G9GiozD4DMHrjRCqKRbh TLF7V72kk9U3SNBxLWNs USO3iQV7hK1wwPcqlxdt bGVmdDsgdmVydGlj FUdpBAflC383JKNfwQal PkNvZGluZyBEYXRlOiAg MTIvMTEvMjAyMzwvdGQ+ VBIyIPS6iYtcFSGk rVJaQLubMs3tmMuhlGtc SE6iPATkhxtoORObvP0s GEYebGVirIcpHT7jCYHl amqwr242RwLePSM0 RTZdgTVpV6VzbE3yNhFf WXCyYCEkC2CjjFSqZOxe H847XDvcFlT8GQXtrfZs Y1NsCSGhvUptVmN4 a9O9Wu6Tq1KiitxbO8Oj sHVyHuGvRqseJFi2D6Qg PjwvdHI+XN89YRBuFN78 IAc7TYP5gSzfWGph PDDgJ3GltU9dNzCkKJCu ZGRkOyc+PHRhYmxlIHdp ZHRoPScxMDAlJyBzdHls VC7cLy0iGGOzTAKi sFgucUEnPfDcu2wlWLWm NKowCH0iaCraR6CfkIA4 VMQir5z6Jp11I25fK5Gq dXA+RDJlnIR8vTH6 vL8sYjDqChQ1HAthC254 KdZckIKjNdhzq4avr7xo oMm3NmY7QTUimxJaxLky XKC3y9ZjFa42Z32o IHdpZHRoPSIxNSUiIHZh zAhjse9nxY1oRw4+PGNv fDP5iBA1pK4jHyGaLqF3 XIraI501DfHrpZNm Fezcr0hfu3imiVn0ZtRf TQIpefQdiWdyGPB2e5Rh Bo64O3OuaSnzo9JzYls1 ql47wYLhh0K2pUG1 H0FwMGDkuidavLOztPzi QG8sZDHiasykWHIpxF2d XDKxR4b5BpTzUoT1XShp I3CfzoC4UUKavJSr XNJntTKGiH6uuiwxi4ab lumpFhElTHXoLYt1BUp9 BNZcdKyqKbEgFBP4ZwE0 OEY7sPTjjL2laGww zdggbJ7lPtz+EZV5iMZf mKVCTL1tGpgtuVZ+PHRk OAC4cDzhMFamSPNycL7d QMPpF3b2CjEePeM0 TPvrA2OzzuR1DGLvdNAe HMQktBUIpD2rrlvny2oq lxhgMmEpHJOaWOa8ORx6 LWFsaWduOiBsZWZ0 EaI9FKB3gZHkgE1ycQcz eoasvV7oNkd+QmlydGgg JRW6HVg6M9EpKvz3BHBa uWdoMH4hxTNtGAkk Zx7pmVycyNyzXV9iNNKn dcnnf276SmSgj0laFLWf sZRrVQclMRS6X42pw2B9 FXDrOYJdLCE8hBC5 aP1qbHzwjvaejQWhkPgb zaGanAehMKalCIbtS007 NZOniWclHjLmTNs7E6Oh Frg3NOYkpEnwUY3t sRDhTXuyEz2ogQwinKck GY3uHJYdwjvhj476NbYh t8mfKSYmfLUrXZujUBW1 N81jh6R8UHDjUFZl ZVR4vGF9uE4lwMjgclem bGVmdDsgdmVydGljYWwt PFsiB490RZDlmXwrFhSg tBf0A6RbKts6DQSz pRnaLC8ddFLcWLqnPl2l tJtzpPbcCC6dGLLxbkdz s387LpGoa5xaBNYbpCMc KTkjGOW7B03fb3J5 YSJhQBYrIAQ7xAI0qI3s bGlnbjogbGVmdDsgdmVy aEtcOZygIQhkW625PVKh cDsnPlBhdGllbnQg PUklQHz9L2WxUndhnAS+ NN64DTWeFI48xVJwfYSd b4hjiMr7EhMwXJFsHSE6 hJcoKBvaz5MdIYXb A78ukVXyr4D6KNKdvPgm lEYrSpFalOG6nN8xRUpt fliep0uzrkjcGndqg7ri mj36vS08Q70yBFbf ZHRoPSIzMCUiIHZhbGln ai3etY9aOf1+PGNvbCB3 zCZ5bB5rAFTcXqY9JIto U529MwMudXGrTdil y2gvx7ufmSo4NgZ7UBFo yuCkpSstYGB1x3OuWs96 C95tJWsdJRThDTYvJRQp JNQekNvjey1fuJ9q Ii8+MVPkdQR1tCI0yG8k UbJjApV2UCojX775GnQw lVQqDzbuR53eO1SqvRV+ URDhQty6FDAbgCmj QV3egFSvMZtfVt4nFSG8 RfDwYpShMHasU5EiZVYb dtuddogjlIY7CZLoRWTk dB86Xm4xcEncJTFo eLVWaF7ygwohb2grmarc ReUeMEVqOLl2DJf9NSAg wRohWhZgDXG4FyA7SVT0 aLTqjB1nyKrthgux vN6bC4TuUHNhfhsoDw36 fP0bKoCkKiU1VYyiWpj+ BU6BNWURZNGTCZdEZORY INNADSR4Q0LqTcu5 SMZzyQgwPV4xmSOxNBmd Cs2tbNbgyLalUP9rFDZd lopxUHSytR4rMWHxzXTt jKqiAS8nRLEztmuo t068ZtPbEDI2GOEhzZWc G2MreE5cDgPhPSCvBQAy C6LepILtFFjpF732ITfn NdJ8NKEszqHoV3Do ZBJrmXziEiI6z9I4Qs9d Yb4mBK5rEVioXU82SP02 oIIgb3T5gVJ5B2IdLXMr zdwlopunzOK2ZDCr MWTowR93sQPsGWgbVv9a y7A0h900GFViVAUjxA39 Uq4bwTzcJMDfnMNYqG8q uhbrr7xwdnbfZyRy NYCfRXc9XMy5KJBsyOcj NwSvKEF1TeU9ULL1kLPd xE6hhCvkjslfyP9xVli+ GvEfENCnuaU1D3Ex Dew2HMUbfTskIV9tjPOh BSyhTw0jsGdndYvlKZ9d YSWdxybjZODpwC5tLYCs iYEudXegME2zBWDn etojz216BqFiCBN6PEAa eYSvQ1XztM4eYcVbMXWy HVDyJ3SefIIuNLmyC473 OIcmZlB1EBLdabJq H9LoEWCzjIgzNpL7c7H7 Yu2JCT5ZGCN6D2QnCor1 VEHskIncQH2apYWiKGwj Yd2gaXxdfArvBY7r SDZgzmodRHUzqG4jAQUd jZLpiWjmNJ8lEFOozekg e642FtQcCCL3UNMwiNMi B1QxuI4rUjWbACPj DVVnB6IkuGOsJNopM020 KLveOiL6VDCpfbKzC7Mp GYEdkIrjXvW9v8Z0Pu8S xLRhL0ZfX7y3H4Dg PjwvdHI+EU38NEFgNV73 bPLevOIsj5ekaJz1HpSw SDTwGFF6rHqkFZzqf8Op YUZoL03ceCAdx5A8 IGNvbGxhcHNlOyBlbXB0 yH0lDPuaeptxm5sdzpmj Lvjup4kfah36bR37S91i IHdpZHRoPSIzMCUi NBFpsGdznq0htJ8jHk6+ HZCykPU7fVG5cW4yNrYg IsS0IXcfY629DnOlrDQm Rdhxh3yvq0ldlFq2 IjIwJSIgdmFsaWduPSJ0 k3PxUk63Z04zDTvzKTKk KXAqXXAuJIRzfKszoe6c mT3rSt8+RW6ew2om gg30lL86mSE+PHRkIHN0 aNmtKXwaZMFfpT5iQIyf IjT0HYWoArVamH93kZOp MBtoHh3boKaseGkg FK2iPOKotzbzr455MeOa q6lxVOAqqYEnLBtfABC8 I30eq6U8GDDpSXZpJGK5 pHX5pN6avUkvqzgw bGVmdDsgdmVydGljYWwt XUnmE996HUWmrFxvFjYx lQEuP1olqcWOPV3mKwli dGQ+APMbJWX2iCkw VLfkHUIgrO5jHAQuI9p5 HsNzBfB8EAcaG4YquwS4 BSXslLStOQBuyKPKlS5t iiubv9nucrhjRiOr UPMhPOy9IMa0DSMtyChl HsYmNUS8NwW2MII1oHEv oI1jhCjhcqrczH9rJzg+ RklOOjwvdGQ+PHRk ZOP3wMzdIFuwGYIkpY6j IVVdO7r4XvTwRtS6SYsn J9LhvcP0LNVcfFGeMCIt kOSFcP7wbrhfr0yi mufiIxSnEXEnDVo9RZt9 FSHnoCtwFyEmORG0TnA8 SDX5bQIftR4xgOmyvtyb vO2wZws+TVJOOjwv dGQ+QOSyXES5fGejZSkq TCOvxP9qHHBuB8l8LsMa WfG7WTfzL6ZkefW7YYHs wXQkMCDorHWGtH6l ajdrm4lbynouEeGfXGXu WMd3QAd7JRHgmBcyBfBk CHS8OnT9YYA1kJGnuH4k gTkyxzfuuD6iOyu+ GDN3ESB6PZ77LK06E8Ga PjwvdGFibGU+PHRhYmxl IHdpZHRoPScxMDAlJyBz uNctSJ2lKp0rGFVf LWN (more content not included)... [facility] Coding Summary HTMLBase 64 FgwwaunlTNh7wRv+PGhl YWQ+VT6OHLRhP50fmZNh xV9pM7TDOSbBEmrzHTHF WOwMMqOhcbPpQT5xkWYx ZXJu IC8+LY2iBRFqQrqkuXTp w4B3lDZ5J83keb3oWJgx bZW9VKHqGuLqtanqw7tn uDe1ZKeoAgqiUfDr NJAfuO03RVS9nG54Wj67 oNXxwWTgv4ptsAp8StRi HYBjKAA4sAgpWQqvv5Ik OEArU93cfEMnb7A4 IGNvbGxhcHNlOyBlbXB0 lG4sPMnfokvve1xafpuy Byr9og38xOGws2R9eJS3 Z6KpmhW5LBXcaTFm IcjuyFGJlP0mkggaa7sh uezfAyMmJXEkMSh8USd4 RAXzdHaeXwVxOX94XBR2 DYUpbjDgU3TvEHXw nLyfPuT3w9Q0Gd9II5HS QwukV5ZOVYNYJDiawNS+ IW14zm12I1IrWdxzNax2 OKPmZMM9pLA2gV6w ZYFeJKwux9Y4uTS3I8Se zaAxce8ih2ugTHLiYHxu Q75anMJhh9G5ZKLolML0 TIFgvLvrEtEuwB35 Oyc+FGJzqJyau0SzNvqt z6orl5mzbXc9HvyrRGTp ztWgrGiaSSF2m3GsDa1c GQJavBT4rYK3tM2r RpKkZfR0LMisG720XuSy aUYqVjckX28pG2ZptXA+ EWZcOyi8UTYakZylNI3d D2RnQYBdghrprNCz aPjfUR1kRPXkzfuvOJCi jU3bRENjD7i8XnYaDcX4 UDjwO2WoAYVzzcxaEf80 kM5cBfHzFsL9AZqy B4OvluZ2FAHxbDEbYLlf JDH2U28jq7P4DRIdEQKs SGB1rKL4lC1nrHnvgvto bGVmdDsgdmVydGlj LBmoVVwmH623XZOqzVmu PkNvZGluZyBEYXRlOiAg MTIvMTEvMjAyMzwvdGQ+ DVTaILE5qJtkMOCk pQLvTUemUn8vyWbvwGey XD9dTKWtfciyDUDrwG4r MKFrxALucWtfXW8xUFAe jkgld186BuOnVZF3 YFBzzOYaR3SvbD1wWpJe BTSyUPZlI6WrtBThIZer Q427HDekSxI0FIPbkeQp D1JqCGCmwPvaPnM9 j5N7Ms7Jb6HxvdbrO1Cs eDYxWbTuQkrbOUj3Z7Fe PjwvdHI+NE42MEGeRT15 FKw1JRZ8cYsuPKqk JFCoF2EpcP7qRqQlKPPk ZGRkOyc+PHRhYmxlIHdp ZHRoPScxMDAlJyBzdHls TX4fIs3kJKDoHYQb eYsfaKLuXkWns3ueBPXo WGrlQV1xmLinD7DsmIK7 HTDdi9u8Gl62I01sF0Lf dXA+LYQmlJJ7pCH0 zD4bWbJpRkS5JKrkZ669 PkYlnCJjLumoq4bho3wj rIh9UeT3EZNdxhOmtZeh LSB5y9RcSo35Q55g IHdpZHRoPSIxNSUiIHZh dTycso0lwH8bRi4+PGNv lZK1nDE7gV5xUpAnOlB7 XXcvN625BuShmVXe Hhxrh9lsd9cpgMq6BbQo YCYoxfRkfTkbXKN9q0Tv Ye28E7LqnUjse4VoMwx3 gv08uDNge2Y7cTL1 S2JwFYJvjxeqmMPttTwy XH5tFPUsndyaWWPxxC7b CRRuT2p7NrCoMlL2VXmu L3UbxmP8DXGrbILq CYGwtPKIvM8jtnrcs0gd dlmdWwIrHTCcMPv8BCb9 QHQkmYxqCkDcXMZ6SwB0 VBC0gFIznT0wmXpn tsbbqV1kUkg+AEN4gDKp hUCUEL6yIuszjWE+PHRk NWD6dItmMPevYKImwC7p OKJoH5j7DiBkOtP4 YXpoM0AkiqJ5XPVhrASh EFGccOKEdQ6zxxtkg9hv aqfmKjGfGQJuBWb1NWs9 LWFsaWduOiBsZWZ0 DeY4YKA6fVMqjM2zfMxt esebrZ5xIsr+QmlydGgg KSB7HUe7W6OjQja5YNOf kHxgZP6mbFJpOHua Wm0atVxvoRujZG7eEPCu wbtog469QyDez7sgLJBm dIEdZBqlPBR7A76ve4P3 BAWlWFNxRRH8rWA8 vJ9heKdranwaiMNydMfm xxLrkIdhWYnbYNyyP592 LWVjmVxqNpEwUBr3N4Mr Noh9DNUrxBwiVC9o yTKnLYchLu2lzOpggHes OZ7uZGQervjaw050LnRl p7hhLSEyxMLrLDjuTAL5 F36xs6N9KUZqSDAu XWH1uSF5lM7quCzfzjkv bGVmdDsgdmVydGljYWwt FSvzO380UIQikQufOjLj gZe5A1IcLfm4HAMz dPuvSY6vsNBrALmfKt9k rMtdpIshHH2nKQVjudti t137JfOrf8ygGFThhPBp EUpdWNV5U22il5C3 BAIxXJEpVEE6kKW0uW5k bGlnbjogbGVmdDsgdmVy jQdeLMqqFUoiS869NNMh cDsnPlBhdGllbnQg WQwtWWz8D1IjLoetkVP+ AD71ZQDvUO59fEBroSZd a6ihdQj8YqTyDVYkJZL2 dOuoZDviz7JxSFXd E88uuALjc4R8SIOzuVjn pMVuZfOdcXW4rB0fCRnq vpiuc3vicjlvYxsmb1ny rj09zJ74U09iXJrf ZHRoPSIzMCUiIHZhbGln tf3kcO5cWv8+PGNvbCB3 yEY6qZ2pCFTpNgT9QWnq V256XaYlnAGeLezg a7zul8afjGp5XmQ6ECTp wdUepYitBUG3u9RkBw11 C39kPDfwBGMrTVOaYGPa UXRqqAdsrk1yyY6o Ii8+EOUqjSZ0dBI6cS2k TlLvEfP0INgxW319EkJb lSJtYadtA11oF5QojOE+ XVMdHyt7HRZjzUob RG5gnHUwHHuySb6kKAD8 XsWiIoLiZOfkU4IcFIFk zxbwtrbnlNQ5URFrFRFm sP67Vx4myNmsFMWy rUWJoM1fvscko1kfczfd VjCnOMSvRRa1ESh3HCMi jRjoAuIyDWH6MnW2OQS6 gDXjlO1ypGidkdlx sJ3qM7VhEEEsphgoXp13 uV4cWgChVfU9WCpoUvo+ QO3LFKPZKXWYENlDCXHD RVTZNFO6F1PaJji4 HAOpnXxjIW4clBRkRYyn Ux9tpCgggPftWK7zLUOf qqufTPSqhD0wWFXyaTBj fFgxKF4iFDPfbdec m828GfHtFRY5TWDphQPz D6DhcU6cUoGgMQZhXIKr G1EzbKGtXUrqG541OPnt NfA7HNJcfdXxB5Nh PEFxfSlaDkY4p2U0Vq4e Hk1fRR0bTQhiSS64QL84 vIPbx2Z9oYD1R5SxYHHv aaomohimyMJ4QMUw LIGcqI14rJVkGVqoBf3s q0Z3u687MGRvYPLtsU95 Vq3peEddGDUguZIMeR9y uctbo9qnnwlaXvUs NMXfYVy0GCw0VTMnrCgh ReKdPQB7IfN7RGV7iEYc uS5etTqcdsdmkU7uVbh+ AeJpQEPxreM2X7Os Mri7YFYqxCtuNN2jtTJk UJyiFj0jzYidtZdqOQ3d EEIkyoklMQAoiM5oPYXv mJGdzRufPZ9gBIDl pzfif021WnYhGOX0SSWp vEEwD6JmtZ6gQdZqXNZa DFPiI7PkbJCeMBgvC740 SCppTsX7JTFlkiGk X9RvSSDkdKzkFfE5y5Q3 Ja5KIW6YMFH3K3GbFtp6 JUNlnRfvKY2wxXPbPYlp Ay9uqDxfwUzdNH9k PXPrhbcnGTRajF7nCTFn gKRnpQlwRA3iMGTenvhz m299VxPyAON2MGZpsSBf P5AxnG3kLfNqOTCv ORNxP8SleUQfADwtG456 NKcdSuP5PFQoqwUgU3Dt ZNDrnXzpYwZ5y9C6Xn8W fGCvP7FoE6m4X5Hd PjwvdHI+ZH26FFIoXO90 qHMqzENxc9griXp4UoEi PRUiXMD1wWcbDAxzm1Rq LLKyF88cgDBcd5U1 IGNvbGxhcHNlOyBlbXB0 pF1bDSztvqzma2ecmdfj Xoeqm5oecf37gY15Y33y IHdpZHRoPSIzMCUi SOZciLlckz7paY7nDd9+ GRRnnQL7sHP7xZ0iPlVg DvC6SFkpF688VkPdgHFo Hkwrk7grf6tzoUc8 IjIwJSIgdmFsaWduPSJ0 n1PsHf58Y30wDJszYVFd BXVyGAZoECBeqJyknf5c bT5nUf1+DZ1ai4fr iv10tN78tLQ+PHRkIHN0 mLzzHIqmWHIxjR1oMZih NdK3VNNhKrAzhC68qCAh OPmeNq7ljOxxeNdg FE4cBFGngfwfa199VlPy y8wcRSQnnJBsQIzeGBP9 C56gb1R5MPRhGFUqJXJ9 iJW2qX5deGvpnynk bGVmdDsgdmVydGljYWwt EYajV994HQTjiMyjRjAb nILvQ8xkmbWALE2jHqau dGQ+WHCtVRA8wNxj IDmiCARzdY5yHHBkN2c9 NsUqZrJ4MYdnI1TrbsV1 DDHwmLNpOKPckKHJbF7l pdkhk4nranhxNvBt YDQnWCl8ZMg6WUPhnUlz NyYoBEC1GhS3AJA6rULd nF5oeOvpntkbtM3hYfn+ RklOOjwvdGQ+PHRk JAA4fMndWAcvXEFgnH5o VEElS3s4SuQvKbV6MMas K7ZdlqQ9YFSnoINfFMFm pFTWlA8zwwtje5bg vbouXxRwSYUmCXf3HPz4 XNVtdTmcWnYjUVB1RcO7 XMW4bMQdsD4drVntyuep iS8mQgz+TVJOOjwv dGQ+WEKhZUL2dVqtPKba ZETenX0jJEAfB3s8ThAf RyD7HOdzT6CxmkU7FHSd nPOcCHVehEGGvI6k uwavw9sxtyxhSdFhDMEa XRn8GPq3EZKbhKbvGuAp JFK9OaY8VXE1aXJqwQ2d yUuppnuxeP7gYhd+ KUW1ABV8ZD94JM58S7Vo PjwvdGFibGU+PHRhYmxl IHdpZHRoPScxMDAlJyBz gSkhTR8sGo8rZKTh LWN (more content not included)... [facility] Coding Queryon 06-05-2023 Coding Query Should this account be coded as: 1. hyperglycemia with diabetes; 2. hyperglycemia without diabetes; 3. other: . I noticed that the patient is on insulin but I didn't see anywhere in the chart mentioning if the patient is a diabetic or not. Can you please put this information in your ED note? Thanks. [Electronically Signed on: 06/09/2023 03:38 EST] Linn Johnson DO [Verified on: 06/09/2023 03:38 EST] Linn Johnson DO [Transcribed on: 06/05/2023 16:33 EST] RR [facility] .Auto Diff 105-30-2023 Auto Archer % 6 % Normal 07-11 [facility] Comment on above: Performed By: #### 1 [id number], 8949101, 3906235, [id number] ####[facility] (DEFAULT)[address] [place] [address] Baso Abs# 0.1 x10 Normal 0.0-0.2 [facility] Comment on above: Performed By: #### 1 [id number], 9581695, 3741656, [id number] ####[facility] (DEFAULT)[address] [place], [place] [id number] Basophils/100 WBC (Bld) 1.3 % Normal 0.2-2.0 [facility] Comment on above: Performed By: #### 1 [id number], 7610413, 8948118, [id number] ####[facility] (DEFAULT)[address] [place] [address] Eos Abs# 0.0 x10 Normal 0.0-0.4 [facility] Comment on above: Performed By: #### 1 7627239, 6398066, 6590115, [id number] ####[facility] (DEFAULT)[address] [place] [address] Eosinophils/100 WBC (Bld) 0.4 % Low 0.9-4.0 [facility] Comment on above: Performed By: #### 1 6846847, 1023525, 7248473, [id number] ####[facility] (DEFAULT)[address] [place] [address] Lymph Abs# 1.4 x10 Normal 1.3-2.9 [facility] Comment on above: Performed By: #### 1 2754933, 8106726, 9108650, [id number] ####[facility] (DEFAULT)[address] [place] [address] Lymphocytes/100 WBC (Bld) 25 % Normal 14-48 [facility] Comment on above: Performed By: #### 1 2221623, 7391777, 6944135, [id number] ####[facility] (DEFAULT)[address] [place] [address] Archer Abs# 0.4 x10 Normal 0.0-0.8 [facility] Comment on above: Performed By: #### 1 9553677, 3583295, 1432045, [id number] ####[facility] (DEFAULT)[address] [place] [address] Neut Abs# 3.9 x10 Normal 1.5-9.2 [facility] Comment on above: Performed By: #### 1 8495753, 0035303, 9301547, [id number] ####[facility] (DEFAULT)[address] [place] [address] Neutrophils/100 WBC (Bld) 68 % Normal 44-88 [facility] Comment on above: Performed By: #### 1 3887503, 3533389, 1463874, [id number] ####[facility] (DEFAULT)[address] [place] [address] [facility] Standardon 05-30-2023 eGFR Non AA >60 Invalid Interpretation Code [facility] Comment on above: Performed By: #### 2 887509, [id number], 3844907 #### [facility] (DEFAULT) [address] [place] [address] 36616 eGFR AA >60 Invalid Interpretation Code [facility] Comment on above: Performed By: #### 2 038276, [id number], 6175398 #### [facility] (DEFAULT) [address] [place] [address]78 Anion gap [Moles/Vol] 13.3 mmol/L Normal 5.0-19.0 [facility] Comment on above: Performed By: #### 2 727932, [id number], 2685339 #### [facility] (DEFAULT) [address] [place] [address]90 Calcium [Mass/Vol] 9.1 mg/dL Normal 8.9-10.3 [facility] Comment on above: Performed By: #### 2 671751, [id number], 1099850 #### [facility] (DEFAULT) [address] [place] [address] 94851 Chloride [Moles/Vol] 102 mmol/L Normal 101-111 [facility] Comment on above: Performed By: #### 2 734268, [id number], 1090071 #### [facility] (DEFAULT) [address] [place] [address] 72497 CO2 [Moles/Vol] 25 mmol/L Normal 21-32 [facility] Comment on above: Performed By: #### 2 237974, [id number], 1805632 #### [facility] (DEFAULT) [address] [place] [address] 11289 Creatinine [Mass/Vol] 0.55 mg/dL Low 0.60-1.30 [facility] Comment on above: Performed By: #### 2 044333, [id number], 2077629 #### [facility] (DEFAULT) [address] [place] [address] 42273 Glucose [Mass/Vol] 293.0 mg/dL High 74.0-118.0 [facility] Comment on above: Performed By: #### 2 921439, [id number], 0204456 #### [facility] (DEFAULT) [address] [place] [address] 38110 Osmolality 283 mOsm/L Invalid Interpretation Code [facility] Comment on above: Performed By: #### 2 946290, [id number], 5341636 #### [facility] (DEFAULT) [address] [place] [address] 18519 Potassium [Moles/Vol] 3.3 mmol/L Low 3.6-5.1 [facility] Comment on above: Result Comment: IV T herapy Performed By: #### 2 635625, [id number], 8738666 #### [facility] (DEFAULT) [address] [place] [address] 60444 Sodium [Moles/Vol] 137.0 mmol/L Normal 136.0-144.0 [facility] Comment on above: Performed By: #### 2 207842, [id number], 6755680 #### [facility] (DEFAULT) [address] [place] [address] 66955 Urea nitrogen [Mass/Vol] 8 mg/dL Normal 8-26 [facility] Comment on above: Performed By: #### 2 892437, [id number], 7109714 #### [facility] (DEFAULT) [address] [place] [address] 99097 Urea nitrogen/Creatinine [Mass ratio] 14.5 mg/mg Normal 4.6-16.2 [facility] Comment on above: Performed By: #### 2 317870, [id number], 5279330 #### [facility] (DEFAULT) [address] [place] [address]70 CBC w/ Auto Diffon 3 Erythrocyte distribution width (RBC) [Ratio] 15.1 % High 11.5-15.0 [facility] Comment on above: Performed By: #### 1 9453251, 6619577, 7677639, [id number] ####[facility] (DEFAULT)[address] [place] [address] Hematocrit (Bld) [Volume fraction] 38.8 % Normal 33.7-40.4 [facility] Comment on above: Performed By: #### 1 8941966, 7094733, 7986824, [id number] ####[facility] (DEFAULT)[address] [place] [address] Hemoglobin (Bld) [Mass/Vol] 12.5 g/dL Normal 11.3-15.9 [facility] Comment on above: Performed By: #### 1 7053224, 2503568, 7243752, [id number] ####[facility] (DEFAULT)[address] [place] [address] Man Diff? Auto Invalid Interpretation Code [facility] Comment on above: Performed By: #### 1 0258526, 4183568, 5904052, [id number] ####[facility] (DEFAULT)[address] [place] [address] MCH (RBC) [Entitic mass] 26 pg Normal 24-34 [facility] Comment on above: Performed By: #### 1 6136856, 7823980, 3994429, [id number] ####[facility] (DEFAULT)[address] [place] [address] MCHC (RBC) [Mass/Vol] 32 g/dL Normal 26-37 [facility] Comment on above: Performed By: #### 1 7071805, 6154135, 2673422, [id number] ####[facility] (DEFAULT)[address] [place] [address] MCV (RBC) [Entitic vol] 80 fL Low 81-100 [facility] Comment on above: Performed By: #### 1 9334037, 4746169, 4599451, [id number] ####[facility] (DEFAULT)[address] [place] [address] Platelet 255 x10 Normal 138-427 [facility] Comment on above: Performed By: #### 1 1561709, 4814642, 9793610, [id number] ####[facility] (DEFAULT)[address] [place] [address] Platelet mean volume (Bld) [Entitic vol] 7.9 fL Normal 6.3-10.2 [facility] Comment on above: Performed By: #### 1 8787436, 2548538, 0320831, [id number] ####[facility] (DEFAULT)[address] [place] [address] RBC 4.84 x10 Normal 3.70-5.30 [facility] Comment on above: Performed By: #### 1 7206890, 0693186, 7847019, [id number] ####[facility] (DEFAULT)[address] [place] [address] WBC 5.8 x10 Normal 3.5-10.5 [facility] Comment on above: Performed By: #### 1 2552850, 4755992, 0801460, [id number] ####[facility] (DEFAULT)[address] [place] [address] CMP Standardon 05-30-2023 Breakpoint Chem Normal [facility] Comment on above: Performed By: #### 1 2368845, 1394835, 7207680, [id number] ####[facility] (DEFAULT)[address] [place] [address] eGFR Non AA >60 Invalid Interpretation Code [facility] Comment on above: Performed By: #### 1 2228437, 0237321, 7227943, [id number] ####[facility] (DEFAULT)[address] [place] [address] 29339 eGFR AA >60 Invalid Interpretation Code [facility] Comment on above: Performed By: #### 1 9525512, 5595108, 3882964, [id number] ####[facility] (DEFAULT)[address] [place] [address] Albumin [Mass/Vol] 4.3 g/dL Normal 3.5-5.0 [facility] Comment on above: Performed By: #### 1 4117406, 7005673, 4318421, [id number] ####[facility] (DEFAULT)[address] [place] [address] Albumin/Globulin [Mass ratio] 1.2 {ratio} Low 1.4-2.6 [facility] Comment on above: Performed By: #### 1 4924110, 0424645, 1816157, [id number] ####[facility] (DEFAULT)[address] [place] [address] Alk Phos 80 IU/L Normal 32-91 [facility] Comment on above: Performed By: #### 1 2512244, 1271297, 3528951, [id number] ####[facility] (DEFAULT)[address] [place] [address] ALT [Catalytic activity/Vol] 23.0 U/L Normal 14.0-54.0 [facility] Comment on above: Performed By: #### 1 9927259, 3538128, 4814173, [id number] ####[facility] (DEFAULT)[address] [place] [address] Anion gap [Moles/Vol] 14.3 mmol/L Normal 5.0-19.0 [facility] Comment on above: Performed By: #### 1 5671467, 3656139, 1620473, [id number] ####[facility] (DEFAULT)[address] [place] [address] AST [Catalytic activity/Vol] 17 U/L Normal 15-41 [facility] Comment on above: Performed By: #### 1 6441479, 0942064, 9658176, [id number] ####[facility] (DEFAULT)[address] [place] [address] Bili Total 1.1 mg/dL Normal 0.3-1.2 [facility] Comment on above: Performed By: #### 1 9246971, 0480991, 4007100, [id number] ####[facility] (DEFAULT)[address] [place] [address] 83381 Calcium [Mass/Vol] 9.0 mg/dL Normal 8.9-10.3 [facility] Comment on above: Performed By: #### 1 [id number], [id number], [id number], [id number] ####[facility] (DEFAULT)[address] [place] [address] 81325 Chloride [Moles/Vol] 94 mmol/L Low 101-111 [facility] Comment on above: Performed By: #### 1 [id number], [id number] ####[facility] (DEFAULT)[address] [place] [address] 92567 CO2 [Moles/Vol] 25 mmol/L Normal 21-32 [facility] Comment on above: Performed By: #### 1 [id number], [id number], [id number], [id number] ####[facility] (DEFAULT)[address] [place] [address] 72402 Creatinine [Mass/Vol] 0.73 mg/dL Normal 0.60-1.30 [facility] Comment on above: Performed By: #### 1 [id number], [id number], [id number], [id number] ####[facility] (DEFAULT)[address] [place] [address] 57884 Globulin (S) [Mass/Vol] 3.5 g/dL Normal 1.5-4.3 [facility] Comment on above: Performed By: #### 1 [id number], [id number], [id number], [id number] ####[facility] (DEFAULT)[address] [place] [address] 37931 Glucose [Mass/Vol] 784.0 mg/dL Critically abnormal 74.0-118.0 [facility] Comment on above: Result Comment: Crit ical result GLU 784 mg/dL called to and read back by instant potato processing supervisornew hollingsworth at 29-May-2023 23:28 by erica. Performed By: #### 1 [id number], [id number], [id number], [id number] ####[facility] (DEFAULT)[address] [place] [address] 12326 Osmolality 295 mOsm/L Invalid Interpretation Code [facility] Comment on above: Performed By: #### 1 [id number], [id number], 7552357, [id number] ####[facility] (DEFAULT)[address] [place] [address] 54960 Potassium [Moles/Vol] 4.3 mmol/L Normal 3.6-5.1 [facility] Comment on above: Performed By: #### 1 [id number], 5278731, [id number], [id number] ####[facility] (DEFAULT)[address] [place] [address] 04576 Protein [Mass/Vol] 7.8 g/dL Normal 6.5-8.1 [facility] Comment on above: Performed By: #### 1 [id number], 0244346, 1614834, [id number] ####[facility] (DEFAULT)[address] [place] [address] 42719 Sodium [Moles/Vol] 129.0 mmol/L Low 136.0-144.0 [facility] Comment on above: Performed By: #### 1 [id number], [id number], [id number], [id number] ####[facility] (DEFAULT)[address] [place] [address] 80753 Urea nitrogen [Mass/Vol] 8 mg/dL Normal 8-26 [facility] Comment on above: Performed By: #### 1 [id number], 9904942, [id number], [id number] ####[facility] (DEFAULT)[address] [place] [address] 61167 Urea nitrogen/Creatinine [Mass ratio] 10.9 mg/mg Normal 4.6-16.2 [facility] Comment on above: Performed By: #### 1 [id number], 1227660, 8242111, [id number] ####[facility] (DEFAULT)[address] [place] [address] 92715 ED Clinical Summaryon 2022 ED Clinical Summary [facility] - Emergency Department [address] [place] [address]81 ED Clinical Summary PERSON INFORMATION Name: DOUGLAS CORDOVA Age: 27 Years Sex: FEMALE : 1995 MRN: Acct#: Visit Reason: Hyperglycemia; Hyperglycemia; HIGH BLOOD SUGAR Arrival: 05/29/2023 22:26:11 Discharge: 05/30/2023 02:16:00 LOS: 000 03:50 Check In: 05/29/2023 22:26:11 Checkout:05/30/2023 02:16:00 Address: [address] [facility] [address] PCP: ARCADIO IGLESIAS PROVIDER INFORMATION Provider Role Assigned Unassigned Yue RN, Shellie Weinstein ED Nurse 05/29/2023 22:27:47 Linn Johnson DO ED Provider 05/29/2023 22:28:31 VITALS INFORMATION Vital Sign Triage Latest Temperature Tympanic Temperature Temporal Artery Pulse Rate 57 bpm 77 bpm O2 Sat 98 % 99 % Respiratory Rate 20 br/min 21 br/min Blood Pressure /98 mmHg /98 mmHg MEDICAL INFORMATION Medications Given: Medication Dose Route Sodium Chloride 0.9% intravenous solution 1,000 mL 1000 mL Initial Volume 1000 mL/hr IV Left Wrist insulin regular 10 unit(s) IV Push insulin regular 5 unit(s) IV Push Allergy Information: shellfish; penicillin PHYSICIAN DOCUMENTATION DISCHARGE INFORMATION: Discharge Disposition: Correction/Skilled Nursing Discharge Location: [facility] PATIENT EDUCATION INFORMATION Instructions: Hyperglycemia, Koyd-jh-Iowx Follow-Up: With: Address: When: Return to Emergency Department In 1 day 05/30/2023 Comments: home resume your normal insulin therapy tomorrow you are welcomed to return as needed You are medically cleared for confinement. T H ALEX< ER PHYSICIAN< H Hamilton Shah, 29 MAY 2023, 2255 hours DIAGNOSIS: Hyperglycemia without ketosis Patient Understands: Yes - Patient/family/careg iver verbalizes understanding of instructions given Comment: Sam [facility] ED Note - Physicianon 2022 ED Note - Physician Patient: DOUGLAS CORDOVA Age: 27 years Sex: FEMALE : 1995 Associated Diagnoses: Hyperglycemia without ketosis Author: Linn Johnson DO Basic Information Time seen: Date & time 05/29/2023 22:31:00, Easy ambulation past the fish bowl, in no distress, in presence of special police officer. History source: Patient. Arrival mode: Private vehicle, walking. History limitation: None. History of Present Illness The patient presents with This patient presents to the emergency room with an elevated blood sugar, she is a known diabetic, she is to be a resident in the local long-term facility, she has not been using her insulin back for couple days, because it ran out, she states she got it filled today, but does not have it with her. She had no vomiting, states she has not been eating, states she vapes and smokes, denies having any occupation states she is single, and she gives her own history. She denies any pains or discomforts; On exam, she is pleasant alert, oriented, neck is supple, she is smiling pleasant breath is not suggestive of acidosis, or alcohol, pupils equal round reactive 3 mm, lungs clear and there is no expiratory wheeze rales or paradoxical chest motion, she is not tachypneic, heart rate rhythm regular murmur PMI left chest, abdomen is soft without discomfort bowel sounds are normal. She has good skin turgor, her neurologic exam is symmetric and intact; . Medical Decision Making Orders Launch Orders Laboratory: Ketone Serum (Order): Blood, Stat collect, 05/29/2023 22:47 EST, Lab Collect Test Urine 1 (Order): Urine, Stat collect, 05/29/2023 22:47 EST, Nurse collect CBC w/ Auto Diff (Order): Blood, Stat collect, 05/29/2023 22:47 EST, Lab Collect CMP Standard (Order): Blood, Stat collect, 05/29/2023 22:47 EST, Lab Collect Patient Care: Dietary Communication Order (Order): 05/29/2023 22:46 EST, sandwich Pharmacy: Sodium Chloride 0.9% intravenous solution 1000 mL (Order): 1,000 mL/hr, IV insulin regular (Order): 10 unit(s), IV Push, Once, Launch Orders Pharmacy: insulin regular (Order): 5 unit(s), IV Push, Once , Launch Orders Laboratory: BMP Standard (Order): Blood, Stat collect, 05/30/2023 0:38 EST, Lab Collect . Reexamination/ Reevaluation Time: 05/30/2023 01:55:00 . Vital signs Alert, appropriate glucose is under 300, we will not take it anymore. She is not ketotic, she is eating here in the emergency room, regular insulin be started on the morning of the long-term. Impression and Plan Diagnosis Hyperglycemia without ketosis (WPZ19-VP R73.9, Discharge, Medical) Plan Condition: Improved. Disposition: Discharged: time 05/30/2023 01:55:00. Patient was given the following educational materials: Hyperglycemia, Dzfu-bc-Pbli. Follow up with: ; Return to Emergency Department In 1 day 05/30/2023 home resume your normal insulin therapy tomorrow you are welcomed to return as needed You are medically cleared for confinement. Jaun JOHNSON< ER PHYSICIAN< Scar Shah, 29 MAY 2023, 2255 hours. Counseled: Patient, Regarding diagnosis, Regarding diagnostic results, Regarding treatment plan, Regarding prescription, Patient indicated understanding of instructions, Police. [Electronically Signed on: 05/30/2023 02:57 EST] Linn Johnson DO [Electronically Signed on: 06/09/2023 03:38 EST] Linn Johnson DO [Verified on: 05/30/2023 02:57 EST] Linn Johnson DO Normal [facility] ED Patient Summaryon 023 ED Patient Summary [facility] - Emergency Department [address] [place] [address] PATIENT DISCHARGE INSTRUCTIONS Patient Information Name: DOUGLAS CORDOVA Age: 27 Years Date of : 1995 Reason For Visit: Hyperglycemia; Hyperglycemia; HIGH BLOOD SUGAR Arrival Time: 05/29/2023 22:26:11 Primary Care Physician: ARCADIO IGLESIAS Attending Physician: Linn Johnson DO Comment: Visit Diagnosis: Diagnoses This Visit Hyperglycemia ([id number]) Hyperglycemia ([id number]) Hyperglycemia without ketosis (R73.9) The Pharmacy at [facility] is open Friday through Friday from 9A to 6P and Friday and Friday from 9A to 5P Prescription Information: If you have been given a prescription for narcotics, seek immediate medical attention if you have any difficulty breathing or any sudden status changes such as confusion and sleepiness. If you or anyone you know is experiencing suicidal thoughts, mental health, alcohol and/or drug addiction problems; contact the [facility] 20/01 Crisis Hotline -Text 8MWIP li 775656. If you received any narcotics, sedation, or any other medication that causes drowsiness for the next 24 hours, unless otherwise directed: ? Do not drive a car. ? Do not operate machinery such as power tools, lawn mowers, drills, sewing machines, or stoves ? Avoid alcoholic beverages and drugs for allergies, nerves, or sleep ? Do not make important personal or business decisions or sign any legal documents With: Address: When: Return to Emergency Department In 1 day 05/30/2023 Comments: home resume your normal insulin therapy tomorrow you are welcomed to return as needed You are medically cleared for confinement. Jaun JOHNSON< ER PHYSICIAN< Scar Geder, 29 MAY 2023, 2255 hours Medication Information: The exam and treatment you received today in the [facility] Emergency Department were for an urgent problem and are not intended as complete care. It is important for you to follow up with a doctor, nurse practitioner, or physician?s assistant press operator for ongoing care. If your symptoms become worse or you do not improve as expected and you are unable to reach your usual health care provider, you should return to the Emergency Department, we are available 24 hours a day. For those patients who have received Radiology results, the interpretation of your X-ray as given to you by our Emergency Department physician is only a preliminary report. The Radiologist will review your films and if there is a change in the diagnosis you will be notified by phone. Please make sure you have provided a working phone number so we can reach you if necessary. In the event that you had a lab culture while you were a patient in the Emergency Department, you will be notified by phone if there is a need to change your antibiotic. Please make sure you have provided a working phone number so we can reach you if necessary. [facility] Emergency Department has provided you with a complete list of medications post discharge. Please inform your ribbon blockmaker/provider of your visit and for further instruction on these medications. Any specific questions regarding your chronic medications and dosages should be discussed with your primary care physician(s) and/or pharmacist. Medications to Continue That Have Not Changed Other Medications amphetamine-dextroam phetamine (amphetamine-dextroa mphetamine 30 mg oral capsule, extended release) 1 cap(s) Oral (given by mouth) every day. carisoprodol (carisoprodol 350 mg oral tablet) 1 tab(s) Oral (given by mouth) 3 times a day. Durable Medical Equipment for Prescription ([employer] DASH PODS (GEN 4) 5PK) change q 72 hours. gabapentin (gabapentin 800 mg oral tablet) 1 tab(s) Oral (given by mouth) 3 times a day. insulin lispro (HumaLOG 100 units/mL injectable solution) tiZANidine (tiZANidine 4 mg oral tablet) 1 tab(s) Oral (given by mouth) 3 times a day. Visit Information Allergies: Substance Reaction Symptoms Type Comments penicillin Drug shellfish Food Vital Signs: Vitals and Measurements this Visit (last charted value for your 05/29/2023 visit) Vital Signs This Visit Temperature Oral: 36.4 DegC Peripheral Pulse Rate: 77 bpm Heart Rate Monitored: 81 bpm Respiratory Rate: 21 br/min Systolic Blood Pressure: 130 mmHg Diastolic Blood Pressure: 90 mmHg Mean Arterial Pressure Cuff-Monitor: 110 mmHg SpO2: 99 % Oxygen Therapy: Room air Measurements This Visit Height/Length Measured: 172 cm Weight Measured: 62 kg Weight Dosin.000 kg Body Mass Index: 20.96 kg/m2 Problems List: Problem Onset Comments Disease caused by 2019 novel coronavirus 03/16/23 Problem added by Rule (IC_COVID19_MAGR_PRO BLEM) following SARS-CoV-2 (COVID-19)/Flu/RSV (GeneXpert) from Nasopharyngeal Swab collected on 16-MAR-2023 09:34:00 EDT teste (more content not included)... Normal [facility] Ketone Serumon 05-30-2023 Ketone Serum Small Normal Negative [facility] Comment on above: Performed By: #### 1 [id number], [id number], [id number], [id number] ####[facility] (DEFAULT)[address] [place] [address] 75255 Outside Recordson 05-30-2023 Outside Records [id number]. [id number] Normal [facility] POCT Glucose Levelon 023 Glucose [Mass/Vol] 288 mg/dL High [address] [place] [address] Comment on above: Performed By: #### 4 [id number] ####[facility] (DEFAULT)[address] [place] [address] 84196 Glucose [Mass/Vol] 278 mg/dL High [address] [place] [address] Comment on above: Performed By: #### 7 [id number], [id number] #### [facility] (DEFAULT) [address] [place] [address] 34587 Glucose [Mass/Vol] 389 mg/dL High [address] [place] [address] Comment on above: Performed By: #### 4 [id number] ####[facility] (DEFAULT)[address] [place] [address] 44701 Glucose [Mass/Vol] 590 mg/dL Critically abnormal [address] [place] [address] Comment on above: Performed By: #### 2 [id number], [id number] #### [facility] (DEFAULT) [address] [place] [address] 45504 Glucose, POC >600 Critically abnormal [address] [place] [address] Comment on above: Result Comment: read high Performed By: #### 2 [id number], [id number] #### [facility] (DEFAULT) [address] [place] [address] 83051 Test Urine 1on U Preg Negative [facility] Comment on above: Performed By: #### 3 [id number] ####[facility] (DEFAULT)[address] [place] [address] U Preg Internal Control Pass Normal [facility] Comment on above: Performed By: #### 3 [id number] ####[facility] (DEFAULT)[address] [place] [address] Progress Note - Nurseon - Progress Note - Nurse PT and [employer] deputy advised of discharge instructions-advised to check glucose every 2 hours until stable then to follow long-term protocol-may return at any time, educated on s/s of hypoglycemia to watch for. [place] provided with medical clearance form. Pt assisted back into personal clothing and cuffed by officer for custody. Pt provided with education and resources for transitional housing, [facility] [place], and [facility] hope line. Pt counseled on addiction and recovery resources and options for area. Pt sts that she wants to use this as opportunity to get clean and seek out rehab following her incarceration. Pt expresses gratitude for care while in ED and denies further concerns or needs. Both parties provided with both written and verbal discharge instructions, verbalize understanding and deny further questions or needs. Pt egress in custody of [employer]. [Electronically Signed on: 05/30/2023 02:13 EST] Shellie Turner RN [Verified on: 05/30/2023 02:13 EST] Shellie Turner RN [facility] Telemetry Stripson 3 Telemetry Strips [id number] [facility] Coding Summaryon 03-27-2023 [facility] MijfikvuTTo0sDt+PGhl YWQ+KG5SFSPxD65llUSb wM1pB1VOBRkUVbcwVZGX SNvFAqHcykWnMR0cfMDg ZXJu IC8+EZ0uQEPqXdiisEJi p4D8nLD1O30rmm8xQUvr qJI8JPGkDrKujdgmk3eb nFc0PTxbAifuAnHy TLDpyI59UVA0zF28Sh97 eNAflTDdy3qmcWe2OkDk QYMnUGU1eBguVAvxj6Iq FVZgX43nmJXyh9A5 IGNvbGxhcHNlOyBlbXB0 oT3zVCportwfz6xorclu Kdw9uy76iGLiq5M2kWK7 D5BzwmA0TMOxoYEk FsmwfNALtD4dunsdc1ew apzvQrJwKKMcYYd7GFa9 PJWmnNkwLnXcBN06OHC7 OBNbueUbG0WaARVh xRbhYoW2r7O2Kb1FR6FX DzlgS3CQVFHEFPletBI+ LA78no30Q7PuHspiVls2 VFTfASQ2tYE8kL4p BIXoUEccd4I1eVW3I1Ud pkHeiu0qh2noWNTkOGwf J87ndVLfk8W8HGWltHS7 CMCngQejAyFfcC32 Oyc+QGDzlZtlt1QiJmte a6dvg9heaZl5OodlAMSf noIohCdaWVP5k2XdUb1l NIBfoOI4zEU7wP4w XhQmYpE5XFjxZ289ZmJd cOItSatfJ37iD9OolSA+ OCZuXon9ZRBhfSqeHS9q E5YsPUHkqexrcWOg oMmlRO8rSYPjsctaQELf kO0uMIYcN1f5HxWkYzY4 CGupX5VjRBYqdedyXl90 uX3tUoWhAgG3NWbj N6BpuvL6XUNqjONbOItm HWG0R08qu6C4BVHiRPNs UHR6cVQ7aM1gqLjhkdho bGVmdDsgdmVydGlj JSpkJGjvI410RZEglSrr PkNvZGluZyBEYXRlOiAg MDkvMjgvMjAyMzwvdGQ+ WZUmZSC9lNwpLLYo bFYbHWyhXy7cwAvorFvn UI5fULBhhlpwQMBloU8k UMWsnUYdwWhcRR2cSTRq tzbwr562PhWlEZE0 KRPwcMZoR6BdsS6gNuIy DFJlEJCsO6SllDGeZXtu E100ERicHdW1ZHNoucNf U3IfBCGawObaGgS7 v0H1Nz8Ir3BmvuvaZ8Oh xTPmAqPzUfybFTg1K0Ll PjwvdHI+YH52IRQhPE28 LRz6WPR8zGudSBoi XGLhM4LrdO2fOzOxVZJj ZGRkOyc+PHRhYmxlIHdp ZHRoPScxMDAlJyBzdHls DK8zHt2uOFSwSLMj xUwgpWOrNgFvm4xbYPMr MUjvQV5upIfiO2VrzST2 JBUub8f8Jg30X62jX4Lz dXA+SVDphXL4dUQ9 fG4nKuOxCkZ1UVanW529 WsQrjPLyOehic0rfk5vq qOd9TjS2UFHuolOqdBxn PCQ0o8EcLz27N51i IHdpZHRoPSIxNSUiIHZh lUkdbw7ifW5xQa2+PGNv qWQ4rCQ9pH3zYuFcIkM7 MCcgJ504CcSmpDKd Cfhbs9igf6cqcDe0ZlBc KSLybqVroCapVLQ1w0Qi An89X1AplRtkd5HtOfu4 vk57aPRbd1F3jHR9 H0SaKVHvezfzbNLtmQvq ZV1dKYHmnhsdRHHnlZ4v AJCmQ0f9CnVtUlC8XOzd L0KkreM0SGPbmIZd OWVavYQKwX3juvtll6bu ibehTlAiDDXePLr4CGw3 FOTzgLpoJmRqWBM0KeQ2 YCX9mXDhfX3orXby dwqfrE1rFbp+DTK6tDLv hETKZR7yDldknOU+PHRk JJQ3jCenUKsxOABpvR1a PYHdM5q5BxYbIrG3 TNenF3TcqmO1QOXruZDf QWExoNZGmW5nazkiv2gm gcdrOnByIGTeJXj4HCn4 LWFsaWduOiBsZWZ0 JoR6ZIX0aFXenQ0zkWms xxwvvZ7wPwz+QmlydGgg ULE5AWy0C6HuIyv6UDVj sYjgCC0dnJEbHCgz Ig5vmNftzTrxVJ6wJFIo ucjlo870FpGyc0dkGVLh xEPuSRckVGL2Z40md1F7 ESEtOYShWFW5oIC6 fR8kvTseugfydEVbqFxr thJjmYixDTsyBCioZ708 AKNhyTzyEyAbKQu6X3Rw Fow1RWPwrQbpIK4g nCDbYMpgAm0yhXtjrHqh XN6lNITevbbzk942HdBw u1ujRSZzgSOcXDtoVGK4 Y02vj8D2GBCnLPKs FNF2vMP5wM8wyWnizpny bGVmdDsgdmVydGljYWwt YWhuU875PEElvMzgEoRi qEj5R4ZoMbt8GUXg iGblHH6iuEAoNZmdYs8k iCkiaSqoCW2xHZUxdckh y984MoQjp5iwTPYyeHUd PCncVJV6Y26hq3S6 YIKuGKQrHLJ9pQI4uC7h bGlnbjogbGVmdDsgdmVy vJnzUJcsDKwaV207SAZo cDsnPlBhdGllbnQg UQomJTl9X0OxXnhbhXE+ CN71FUFzKY46zRLibIIw j7nteXx6LwHyQIUkFPV0 wUsrKMsyj9KvZDKv V37saSGjh3E7SFLfmHah pAThQeTmyGT3sK6lHHrh drowb0ardeaxNycwh4yb ha25yV53N31vGOac ZHRoPSIzMCUiIHZhbGln ss8kzG3bHi9+PGNvbCB3 eVM4cE8wCSAfDyV5ZNos U074GtEhmUObXfgi j2szl1xceZj0InR3OWQc psIepMbnMKF2m4ZuSb05 G92wOGrbFRToHAHeMZZu KWHuhHebky6xjI7y Ii8+YTNnvUF9zRW0aR6u SkYlDlF5HPccQ131KcUh xYCaApcpK14bA0CwlYU+ PJXtDdl1BCPgvNqd QO7ekVYcWBpzIl3hFYV2 VzAiSrJlSJlrM1CqAXXw mfdftpqkgJE1TWFkURVz bI87Gi7viXhoBJZu lACMuE6smnopi7aagepv UfPmSAHsADs4NJw0QPCd cKivBwVeWCR7FkG1VIV1 kUEevR0lzCxzjiwc wT6xW6IdFRDvassgTy43 mZ8zUfUdHmS6QJntBly+ UX6MGHELEVRMWXxKLEAD KG63NV93aTEer3U4 tTK5F4ZmIREahlldfckv nDK3KJOvKYZnbV77mERc TIlxLl6xl2I0w251VDYm MZXbzJ12Vt0gyCii ZJCxgXHYsT7npfval3dx zcewHiPpUMBvXRf1ZVw8 MNMkfHpyMfJjQVL9VfY7 PYK9dNOxsN1uhIii zriixC0vKzy+MTIvMDUv OWz8SyucsPM+PHRkIHN0 dEnsYClkKEGnkT1hOPXh W7y2JkEhYbU2KSmi B8LpWEBiiisrPb37kO4z PdMnUnM3OHusB5EoopE5 OFCtkIPpCVkzDWZ2X30d q2A5OMOgNCVzJJJ2 aQX0bO5iiLnxpwewoVEf dDsgdmVydGljYWwtYWxp M578PBFoxFcwJeW4UGqf GEMuGI34PQ40mQWz c3C1yMG1N4OzKQTlwxlt dmxlpPP3JVIgVSJwiD38 rHYtZMtlXw9zn1S4w176 FDEjQXIhpZ88Bg8i nPliPOEowVPBrV7kgtxz g7mhtinaUbQmRQYnYYa5 LRr9CEFmtVrnUrUcUVN7 MdX0FPK7jSVhgT4m vHbjbhoauI1qVcb+RkVN OQkXUH78FS71lKVce2B0 gQW8K5SkOKTkqfixnzht jOA9GBAhGCUueT46 dNQaCQbgWf1hf6L1e215 OGLzAXFxaR66Ia4dcZak UWYqoEBKqF4lzdbsd2rc cjogIzAwMDAwMDt0 MWk8DBSzpLumUqSuDKI1 HqX8TFV5zMBblN1moLzd ceizqX7xHte+UX7condr gzB9PZ64UW43P9Ja PjwvdGFibGU+PHRhYmxl IHdpZHRoPScxMDAlJyBz cOmfJL2iKy6nMCVjUFBm aCsrqQAiPaWxu1mp LHEzYWixTV5tbKgeB9Dv lPW7SKOiq5c2My31D87m M2LsnPJ+LQHekSZ8kXL5 kK5sNqDuRbV3SBgi G240HiQirBOgRrsih0cb h5ofxSe7MlOcLLEvcaLg xSkgJPV8c2BeFy40E27i IHdpZHRoPSIyMCUi DIDntMlrtx3ccY2eGg4+ TZYnqSC8gLU0dO1nDsMg RcY2WWycV732VyScvZBm KdkzC81fX5KmfFS+ MSIaLiy6ROPdfPjvKI6d mGHaBZeaMv4mSTG6BvKl YfNvUPppV8ZkQUCafyet xcqnnFR4EEGwZFIi bL48Vk7xtUgyEd9mKFYe QAF2WHOcfJRrA4UkdZ1t WaUePYHyUFEjJ6SqwTFl NRahF406RGwmLxX0 XUByleJqX4RrPOEooNah EjN1c5K2Zn8PbPebmYSj LD5lBwRaWCe8W6XwJtb0 KIItyDdjQS8qrDBp FPzzRr7ylTxpjSmvVF7j CFNxoirdp573IiJap0iq FSVilHIdZBdaQQQ5G46x z4O0AJNgBFSyKNE7 zGZ4yR4fcZibrzyicAYl dDsgdmVydGljYWwtYWxp B265BOIqbAegHyGGUyl1 P4HjJca0URVakSwn BM3tuAJqWClgFn4caZnq gAlwPN4mVPBhkcmnf441 LmQpe7ahWEJpiKPzTFvm VEF4F36js4I9RFIi EXAfXIW1vEJ7zM5bjYml bjogbGVmdDsgdmVydGlj KWbcEOppJ847GOSofKky Ce9BXpn8W8GmZnv0 YWTppNlmZG4ftEHhHPcq Og8mrMemfSxiPW1hRZSr mvplw628DcIbg5ngWKZn fUOvRIlcLAK5S09i m0H6TLVqONOcFBU1zKT7 bP1nhTipdasfsPQlqUaf vxLifWrdQYglJOfiH484 IHRvcDsnPlBheWVy OjwvdGQ+SL47oa91I7Og ZobsSyg4GWAiPHY0kTA9 tZ5fBPRpUVeuc2N8oMY5 L4QplxFylr3qw2vw YXB (more content not included)... [facility] Coding Summaryon 03-25-2023 Coding Summary [employer] 64 UyjvwgbfBDm7iMi+PGhl YWQ+PO8EAXAkR36cdOJh kP0gS7USLCtBOwxaJVFT SNjRMvScrpPvJA3klXAb ZXJu IC8+II6tXFRtTqhcoCMe x4I8aHC3P49ppk4aZRyi kCW1EVHdDeBwvztei0pb jJt4OWqkRtyaVtBr ZSVwtY33JTQ4dT43Hb86 rZFcsQWzr1cgoXt1RdPg HOHuTFV0rBraOMkgc2Qb DPFcT46ixVTrw1N0 IGNvbGxhcHNlOyBlbXB0 wP3vHKxwecauv3zepuza Gms6jm30vJNfz0C7zRL1 X5UjlkE5TLQhfLOe EbbesHHGeX9nuhyqj1fe cxgiNyMfWUYlMMs2UKo4 FQRphDpfYcYqMW97HCT0 XXZiclUvB8SzEUFa nEbyKyR5c9E7Ws0EQ6AA MlisY6VTIQDZIRshyUY+ XH76zb95F5NmUbunJyy2 AOEtQKB4cPI7xW2s VYAuKSgdg3V5bRT6H2Yg mmVipp9qb9fnXGUeJNmg U22giFCoy6E2ZLGcvKP1 APHksBduByScxK47 Oyc+FXLrqAdua5DfTwfj z3igx6gwaFb0KrnpTSNj hmTktEljNPL4b7GtSc3v RUXfkIL2iXD3vA2u ErYeThL2YEqnY219XzAz mRDsCkrxM03bF7OeiGZ+ UDOoOqg5DXEzmPpbFW8k E0SvQQUytvwvfVQx hKxuDQ8jULIwhrceRWDt iF2uAPLzK6q7KqUeYeT5 XRsaF1QdHCYpznetQf21 uC0qZrObHoJ1JCwy K2VjiqP7SVIdlPVjRVhq LDE4N56tn1P1AZXnHNQh GDZ8uCT9jL8trJtwfojg bGVmdDsgdmVydGlj CGscXZlvM197NWKkjOcm PkNvZGluZyBEYXRlOiAg MDkvMjYvMjAyMzwvdGQ+ ENAnVCN4jTsmXMWr yJMyIUwiTk9qrBghjDbf SO7rNUYnadkpWZPwcQ9o PXVaeSIezUvzLG1jIBJq xegmu656DyMkCQC7 WFXwpUHsE5ZveH9nRlFe QVFkRFUkC5JmuZIbHSjo A530CKkePoX5VFRwnrCz W3ZpHPXadNtoTyE6 v4H5Te5Op3YalawuN2Lf vYZsRsEeHkpoFNp8N2Lz PjwvdHI+FF93DDCdFL95 MKa8MQE4gEutOXop COEeZ6QznB5gDcBgLKUi ZGRkOyc+PHRhYmxlIHdp ZHRoPScxMDAlJyBzdHls ZU1yAv6gWRMoLZMm iTgcuODjBoIgj2vaJSMn XRuyDC2yoLgsV6ZqpJE2 PUWiq2b3Gv70H69sF4Sc dXA+BBSjyZT2bQR3 cV9qJaPmUhW3WHxgC550 NiCgeQMoCdlcg1fsm1fb oWy2BoY7RBCtztWuyFpv SQX0k9BzJs95F80h IHdpZHRoPSIxNSUiIHZh vAwtfu9wgU6lAa3+PGNv rZZ4zUH0eL8cZrHgTjD3 KCoqE613KbGbnTMb Pkecm0gwu4qntEh5GeJj BSYtnvChtZaaGVU8l2Ab Jo49G3XmqIlca0MxMsz6 yk96zFKwz5D8mJE2 M0IfNTYflhwnmUQjcTyi VU3bXZTmlumlDGDvxO6p QOAqG3z6ZhNtTaV0KQua G5UcmbF8SKGznRTd LXDdgBMIeD0pgkukp4yq kcrmEeAjMTFlVHp2KNc5 DIYxhQlyRgBwZAM7QrT0 TLI5aMXxpV9mwTqp eknzeL3aUsc+NHR8xJYo kYYPYR0dHqiatZD+PHRk GZQ5qUuzRKlvMBXjzD4u ZYHnR8e2MyXgXzG5 YPfwL0DyxtJ5IWRiiLYt RDRsoXVCuI3aedgio0mm shfuNvRfVHCqCJv1LCa6 LWFsaWduOiBsZWZ0 PvU5UQO0iBYwlD8vgLiq ymgflA2oMek+QmlydGgg ZJR2CWx5T1CyIgy6AIHm vZttHV5vwMCwLDgj Wu7lpSuhzNkyTB3oBKOr oypkl533LbSoc7sjZMXg sJRaDOizFDS6U22de8Q7 CDBgTVLpPPK1nLE8 kU5xnHlduwkgaWTakZtk ioHsmZmnLRleOWstL840 EAGbmMriSaSjCZb7N5Oe Tbu6QVEnyEzlEH8g uFTuEVabQs1iaBwwtQaw JQ3lVETrlcefi825HtTj z9wcBHYcoLDwFUtyZZT4 S58bz7H0OJVzGRBy GPM1mLM3gB5kpLbswoyb bGVmdDsgdmVydGljYWwt RUxfA188ZZExzPsvOsEy hJi5M3DgQmz8RQAp bBpxSA4unQPbJVpwHo2n yJqqhWfgIA5pPQHduhhr j883TyBxa9naFPDlqZFb IWugSWG9F00vl3S4 MBVxOTUbIJS2yEM6vK1x bGlnbjogbGVmdDsgdmVy uSwzNLvaJJzeO222VAZi cDsnPlBhdGllbnQg OOybNWm5R8NeFbbswHK+ PS80PEZgYC65uWGysOTu h0sdlZr7PuGeTSYlPOM1 nVmsDCfay9HrYNGa Q34dxOAxp2X2NLPpyZlq uGFhDrIbqYF3oM4cMVvu jqvrz5curxscVtwzo7rf xn76cA65S63nZWfr ZHRoPSIzMCUiIHZhbGln fk2txQ6qDk2+PGNvbCB3 cGP2xK1oOEThXyS7ZTit Z254MzTkbPNbJopy l2ugl0pbpXt8GmO9EBHt lxTlkOcwERL1g8CjBb81 K97hTPxgXRQjJIYvXVTa AGXxyOesof4ifV3h Ii8+LNBltSO5eJE1lD5q ZuBbXfR2EKgkQ589ZqQr xXEhHvgwQ51jQ4DxfPO+ WPEiFuf6UKQxwSaj BX2bkRUmFCzwMd4tIVL0 KsYhYcUpXJmuR3KeEMUb yebckucoaRW9HMSlBOJz sN07Iw4poRldSCEp yGEMbU0oxammh5kgxhol VwEpPIXuMAf1NCc0GNKd vPvmOaDxSKT2KeS0EAV0 dNVwgK7rcPkarmyk pN9vZ8ZwQTWefwirCk28 nE3wZrWqEmZ0XDlhEan+ WG3HBUXGQCHXWWdWBNLA EB02QL84tAJgv2P5 nWX7I4GvKBUnbkhkivhe fRC3PTHlTRTmzN48yDTg KMqxWf4np3J2f178WPHz TMNboA96Jt3jmPup ZGHnwIDCfV8oloecq3mg ptiaEcTmKATrMFl2UCr8 AOPrhPfkTsZsUSH4UdM6 SJT9tIDzcT6ajCwv ssqusW8nFel+MTIvMDUv BWw9IsxuvWA+PHRkIHN0 kOxoNBbiAFEbqP2cZROj Q1b6RbMzIkX9LXpu T2KzKATqmpayZq49tZ9b EqKpLaK9DZfpK1CclfU1 FJFrsFDoFXnmXAI9K63b l6T1YZYsKMQyQNT2 qVL1tN8owHuwihxhmEKa dDsgdmVydGljYWwtYWxp Q298WDWuxRwmTnD7TRsx AQMvCL96GE67dTBe b9B0qRP3L6TuXMQplypp kgezuDI3HBVnJDTuqT26 vAHwTCanMv5fn5Z3f423 BPLbRVIizJ63Js0d cRnzEDIyqGHNhK0pmfed i0ibpyiyShBtGCRnXDb6 VJk3JYOjeZhiZjImALS8 TiG1JNG0cHOwpV9s vItvkdbkqG9zMod+RkVN FTsLIR89KW56zTNsj0U1 kOR4G3IwOHNsvoeqvmis uDP2PKCwGQMqfM02 oUBxBEcmJf2rm3T0g390 MSEiRMDmqL10Gs6egZcz ASDvtAEYyE3mloaho7lj cjogIzAwMDAwMDt0 NMp5RRTjtTeyLyFfXER0 MlI9UHZ5aQIyvK1ueOoz yxxzpR3hSvf+S2GxRIK8 CFFtw688I8HhGret dHI+DA42XYNfRM86uNMt bLKmw7yfqLy1HzQtNGZk BAG3cDjuXLrga7ArJPFm K56brSCyk9H9XORv zKajnGFzLmWgcGD4fQ1r OSjwauccx8yfqttmWihu b3usxf59kF02G68wHIba ZHRoPSIzMCUiIHZh mBrxis9niG9bKc9+PGNv vGX1rJU8iD0pAmXoEeS4 DTkyS106QxNhxAEtPoxd j1uuj2sqgZb3UcDw ENLqqsTztOnrXFI9q3Ol Nl52N79yIGfyYORzGIWy SYXsXBNelDyseg2kyN0q Ii8+XK9uo2fhgk06 bD04rBW+STItHED8pPys KRaaCCPafD1pRBfhZaN2 MMObXlYahK15qTWvQPaf Gt8glSxmxEjqCF9i GCThyzkiz745BtAee9gs LDLdsWSuUAruCFG4F96o k8S0SBHuTSQvZAQ4fYH7 qK1ljRpltudbmZQv dDsgdmVydGljYWwtYWxp P582BYIdtScmHfSuoUKi N0xyqjXXCE1fGpxmvHA+ NFGmAUA6wKvtMUat QFWwtF1aFFDiB8w4OkGm YoZ7RZahP7GllcH4GRWy dWEzSZAsmWGJpQ7bdwlw t7enxjasLpNmQPFl HIj7WTx9LOGqfZpaLaAv AAP0PvQ8XGS9mUTmuU9h xFrjrfqozN1bTmh+RklO OjwvdGQ+PHRkIHN0 rTheTEluVBWhdV0sISFh K3j9RaSrIhV4KXpvJ7Vu bmY9JVSxiHCiOCUbmPIX bN6iksdly0gudbyb BgQpDJGkRNf4JGl3PHQt tUgyMbMfRZH8KqI6BXU2 nSDbrC5lhIwhhovlmO9j Oyc+TVJOOjwvdGQ+ SGStBZO4mLvxHPpgZYIr gK5zBVMqF0h2EdVpTpR7 HGfbP0BuamN1SPIwwDPs ZCZibNZCyL0nwftp d6drkyjdLzMbTYMoYVu6 NYd7QIQreSqwIfXqAWH6 SuL1HXN5pGKoqJ5hsCiy gklxwP1sVsx+UGF5 RLR2DF28VO11V2ZvNwsy dGFibGU+PHRhYmxlIHdp ZHRoPScxMDAlJyBzdHls ID6vMb6tFHFzKTDx bGx (more content not included)... Normal [facility] C Bloodon 03-23-2023 C Blood No growth at 5 Days Normal [facility] Comment on above: Performed By: #### 2 [id number] #### [facility] (DEFAULT) [address] [place] [address] Cult,Bloodon 03-23-2023 Cult,Blood Specimen Description .BLOOD Special Requests R HAND 2ML Culture NO GROWTH 5 DAYS Report Status FINAL 03/23/2023 [facility] Comment on above: Performed By: #### Jose EJEC, HEPXA #### [facility] [address] [place], [place] [id number] Director Veterinary: Norman Blake MD Cult,Blood Specimen Description .BLOOD Special Requests L HAND 2ML Culture NO GROWTH 5 DAYS Report Status FINAL 03/23/2023 [facility] Comment on above: Performed By: #### Jam RODAS IOCAL #### [facility] [address] [place] [address] Director Veterinary: Norman Blake MD Basic Metab w/rfx MGon 03-20 Potassium [Moles/Vol] 3.3 mmol/L Low 3.7-5.3 [facility] Comment on above: Performed By: #### Jam RODAS IOCAL #### [facility] [address] [place] [address] [id number] Director Veterinary: Norman Blake MD Anion gap [Moles/Vol] 8 mmol/L Low 9-17 [facility] Comment on above: Performed By: #### Jam RODAS IOCAL #### [facility] [address] [place] [address]99 Director Veterinary: Norman Blake MD Calcium [Mass/Vol] 7.3 mg/dL Low 8.6-10.4 [facility] Comment on above: Performed By: #### Jam RODAS IOCAL #### [facility] [address] [place] [address] Director Veterinary: Norman Blake MD Chloride [Moles/Vol] 100 mmol/L Normal 98-107 [facility] Comment on above: Performed By: #### Jam RODAS IOCAL #### [facility] [address] [place] [address] 28726 Director Veterinary: Norman Blake MD CO2 [Moles/Vol] 28 mmol/L Normal 20-31 [facility] Comment on above: Performed By: #### Jam RODAS IOCAL #### [facility] [address] [place] [address]1756 Director Veterinary: Norman Blake MD Creatinine [Mass/Vol] 0.4 mg/dL Low 0.5-0.9 [facility] Comment on above: Performed By: #### Jam RODAS IOCAL #### [facility] [address] [place] [address]7979 Director Veterinary: Norman Blake MD GFR/1.73 sq M.predicted among non-blacks MDRD (S/P/Bld) [Vol rate/Area] mL/min/{1.73_m2} Normal >60 [facility] Comment on above: Result Comment: These results are not intended for use in patients <18 years of age. eGFR results are calculated without a race factor using the 2020 CKD-EPI equation. Careful clinical correlation is recommended, particularly when comparing to results calculated using previous equations. The CKD-EPI equation is less accurate in patients with extremes of muscle mass, extra-renal metabolism of creatine, excessive creatine ingestion, or following therapy that affects renal tubular secretion. Performed By: #### IRAIDA DUBOISCAL #### [facility] [address] [place] [address]281 Director Veterinary: Norman Blake MD Glucose [Mass/Vol] 226 mg/dL High 70-99 [facility] Comment on above: Performed By: #### Jam RODAS IOCAL #### [facility] [address] [place] [address] Director Veterinary: Norman Blake MD Sodium [Moles/Vol] 136 mmol/L Normal 135-144 [facility] Comment on above: Performed By: #### Jam RODAS IOCAL #### [facility] [address] [place] [address] 71427 Director Veterinary: Norman Blake MD Urea nitrogen [Mass/Vol] 4 mg/dL Low 6-20 [facility] Comment on above: Performed By: #### IRAIDA DUBOISCAL #### [facility] [address] [place] [address] Director Veterinary: Norman Blake MD CBC with Diffon 03-20-2023 Abs. Basophil <0.03 Normal 0.00-0.20 [facility] Comment on above: Performed By: #### Jose WELCH HEPXA #### [facility] [address] [place] [address] Director Veterinary: Norman Blake MD Abs. Eosinophil <0.03 Normal 0.00-0.44 [facility] Comment on above: Performed By: #### Jose EJANNA, HEPXA #### [facility] [address] [place] [address] 88971 Director Veterinary: Norman Blake MD Abs.Imm.Granulocyte <0.03 Normal 0.00-0.30 [facility] Comment on above: Performed By: #### R EJEC, HEPXA #### [address] [address] Director Veterinary: Norman Blake MD Abs.Neutrophil (Seg) 2.46 k/uL Normal 1.50-8.10 [facility] Comment on above: Performed By: #### R EJEC, HEPXA #### [address] [address] Director Veterinary: Norman Blake MD Basophils/100 WBC (Bld) 0 % Normal 0-2 [facility] Comment on above: Performed By: #### R EJEC, HEPXA #### [address] [address] Director Veterinary: Norman Blake MD Eosinophils/100 WBC (Bld) 0 % Low 1-4 [facility] Comment on above: Performed By: #### R EJEC, HEPXA #### [address] [address] Director Veterinary: Norman Blake MD Erythrocyte distribution width (RBC) [Ratio] 14.7 % High 11.8-14.4 [facility] Comment on above: Performed By: #### R EJEC, HEPXA #### [address] [address] Director Veterinary: Norman Blake MD Hematocrit (Bld) [Volume fraction] 30.8 % Low 36.3-47.1 [facility] Comment on above: Performed By: #### R EJEC, HEPXA #### [address] [address] Director Veterinary: Norman Blake MD Hemoglobin (Bld) [Mass/Vol] 9.8 g/dL Low 11.9-15.1 [facility] Comment on above: Performed By: #### R EJEC, HEPXA #### [address] [address] Director Veterinary: Norman Blake MD Immature granulocytes/100 WBC (Bld) 0 % Normal 0 [facility] Comment on above: Performed By: #### R EJEC, HEPXA #### [address] [address] Director Veterinary: Norman Blake MD Lymphocytes (Bld) [#/Vol] 1.66 10*3/uL Normal 1.10-3.70 [facility] Comment on above: Performed By: #### R EJEC, HEPXA #### [address] [address] Director Veterinary: Norman Blake MD Lymphocytes/100 WBC (Bld) 38 % Normal 24-43 [facility] Comment on above: Performed By: #### R EJEC, HEPXA #### [address] [address] Director Veterinary: Norman Blake MD MCH (RBC) [Entitic mass] 24.8 pg Low 25.2-33.5 [facility] Comment on above: Performed By: #### R EJEC, HEPXA #### [address] [address] Director Veterinary: Norman Blake MD MCHC (RBC) [Mass/Vol] 31.8 g/dL Normal 28.4-34.8 [facility] Comment on above: Performed By: #### R EJEC, HEPXA #### [address] [address] Director Veterinary: Norman Blake MD MCV (RBC) [Entitic vol] 78.0 fL Low 82.6-102.9 [facility] Comment on above: Performed By: #### R EJEC, HEPXA #### [address] [address] Director Veterinary: Norman Blake MD Monocytes (Bld) [#/Vol] 0.25 10*3/uL Normal 0.10-1.20 [facility] Comment on above: Performed By: #### R EJEC, HEPXA #### [address] [address] Director Veterinary: Norman Blake MD Monocytes/100 WBC (Bld) 6 % Normal 3-12 [facility] Comment on above: Performed By: #### R EJEC, HEPXA #### [address] [address] Director Veterinary: Norman Blake MD Neutrophil (Seg) 56 % Normal 36-65 [facility] Comment on above: Performed By: #### R EJEC, HEPXA #### [address] [address] Director Veterinary: Norman Blake MD NRBC Automated 0.0 per 100 WBC Normal 0.0 [facility] Comment on above: Performed By: #### R EJEC, HEPXA #### [address] [address] Director Veterinary: Norman Blake MD Platelet mean volume (Bld) [Entitic vol] 10.5 fL Normal 8.1-13.5 [facility] Comment on above: Performed By: #### R EJEC, HEPXA #### [address] [address] Director Veterinary: Norman Blake MD Platelets (Bld) [#/Vol] 154 10*3/uL Normal 138-453 [facility] Comment on above: Performed By: #### R EJEC, HEPXA #### [address] [address] Director Veterinary: Norman Blake MD RBC (Bld) [#/Vol] 3.95 10*6/uL Normal 3.95-5.11 [facility] Comment on above: Performed By: #### R EJEC, HEPXA #### [facility] [address] [place] [address] Director Veterinary: Norman Blake MD RBC morphology finding Nom (Bld) ANISOCYTOSIS PRESENT Normal [facility] Comment on above: Result Comment: MICR OCYTOSIS PRESENT Performed By: #### R EJEC, HEPXA #### [facility] [address] [place] [address] Director Veterinary: Norman Blake MD WBC (Bld) [#/Vol] 4.4 10*3/uL Normal 3.5-11.3 [facility] Comment on above: Performed By: #### Jose WELCH, HEPXA #### [facility] [address] [place] [address] Director Veterinary: Norman Blake MD Heparin Anti-Xaon 03-20-2023 Heparin Anti-Xa 0.46 IU/L Normal [facility] Comment on above: Performed By: #### Jose WELCH, HEPXA #### [facility] [address] [place] [address] Director Veterinary: Norman Blake MD Magnesiumon 03-20-2023 Magnesium [Mass/Vol] 2.0 mg/dL Normal 1.6-2.6 [facility] Comment on above: Performed By: #### Jam RODAS, IOCAL #### [facility] [address] [place] [address] Director Veterinary: Norman Blake MD Troponinon 03-20-2023 Troponin, High Sens 295 ng/L Critically high 0-14 [facility] Comment on above: Result Comment: High Sensitivity Troponin values cannot be compared with other Troponin methodologies. Previous Alert Value Reported Performed By: #### Jam RODAS, IOCAL #### [facility] [address] [place] [address] Director Veterinary: Norman Blake MD Troponin, High Sens 308 ng/L Critically high 0-14 [facility] Comment on above: Result Comment: High Sensitivity Troponin values cannot be compared with other Troponin methodologies. Previous Alert Value Reported Performed By: #### R EJEC, HEPXA #### [address] [address] Director Veterinary: Norman Blake MD Basic Metabolic Profon 03-19 Potassium [Moles/Vol] 2.7 mmol/L Critically low 3.7-5.3 [facility] Comment on above: Performed By: #### H EPXA, TROPI, CDP, BMP #### [facility] [address] [place] [address] Director Veterinary: Norman Blake MD Anion gap [Moles/Vol] 8 mmol/L Low 9-17 [facility] Comment on above: Performed By: #### H EPXA, TROPI, CDP, BMP #### [facility] [address] [place] [address] Director Veterinary: Norman Blake MD Calcium [Mass/Vol] 6.0 mg/dL Low 8.6-10.4 [facility] Comment on above: Performed By: #### H EPXA, TROPI, CDP, BMP #### [facility] [address] [place] [address] Director Veterinary: Norman Blake MD Chloride [Moles/Vol] 101 mmol/L Normal 98-107 [facility] Comment on above: Performed By: #### H EPXA, TROPI, CDP, BMP #### [facility] [address] [place] [address] Director Veterinary: Norman Blake MD CO2 [Moles/Vol] 25 mmol/L Normal 20-31 [facility] Comment on above: Performed By: #### H EPXA, TROPI, CDP, BMP #### [facility] [address] [place] [address] Director Veterinary: Norman Blake MD Creatinine [Mass/Vol] 0.3 mg/dL Low 0.5-0.9 [facility] Comment on above: Performed By: #### H EPXA, TROPI, CDP, BMP #### [address] [address] Director Veterinary: Norman Blake MD GFR/1.73 sq M.predicted among non-blacks MDRD (S/P/Bld) [Vol rate/Area] mL/min/{1.73_m2} Normal >60 [facility] Comment on above: Result Comment: These results are not intended for use in patients <18 years of age. eGFR results are calculated without a race factor using the 2020 CKD-EPI equation. Careful clinical correlation is recommended, particularly when comparing to results calculated using previous equations. The CKD-EPI equation is less accurate in patients with extremes of muscle mass, extra-renal metabolism of creatine, excessive creatine ingestion, or following therapy that affects renal tubular secretion. Performed By: #### H EPXA, TROPI, CDP, BMP #### [facility] [address] [place] [address] Director Veterinary: Norman Blake MD Glucose [Mass/Vol] 156 mg/dL High 70-99 [facility] Comment on above: Performed By: #### H EPXA, TROPI, CDP, BMP #### [facility] [address] [place] [address] Director Veterinary: Norman Blake MD Sodium [Moles/Vol] 134 mmol/L Low 135-144 [facility] Comment on above: Performed By: #### H EPXA, TROPI, CDP, BMP #### [facility] [address] [place] [address] Director Veterinary: Norman Blake MD Urea nitrogen [Mass/Vol] 4 mg/dL Low 6-20 [facility] Comment on above: Performed By: #### H EPXA, TROPI, CDP, BMP #### [facility] [address] [place] [address] Director Veterinary: Norman Blake MD Potassium [Moles/Vol] 2.5 mmol/L Critically low 3.7-5.3 [facility] Comment on above: Performed By: #### H EPXA, TROPI, CDP, BMP #### [facility] [address] [place] [address] Director Veterinary: Norman Blake MD Anion gap [Moles/Vol] 7 mmol/L Low 9-17 [facility] Comment on above: Performed By: #### H EPXA, TROPI, CDP, BMP #### [facility] [address] [place] [address] Director Veterinary: Norman Blake MD Calcium [Mass/Vol] 6.0 mg/dL Low 8.6-10.4 [facility] Comment on above: Performed By: #### H EPXA, TROPI, CDP, BMP #### [facility] [address] [place] [address] Director Veterinary: Norman Blake MD Chloride [Moles/Vol] 100 mmol/L Normal 98-107 [facility] Comment on above: Performed By: #### H EPXA, TROPI, CDP, BMP #### [facility] [address] [place] [address] Director Veterinary: Norman Blake MD CO2 [Moles/Vol] 23 mmol/L Normal 20-31 [facility] Comment on above: Performed By: #### H EPXA, TROPI, CDP, BMP #### [facility] [address] [place] [address] Director Veterinary: Norman Blake MD Creatinine [Mass/Vol] 0.4 mg/dL Low 0.5-0.9 [facility] Comment on above: Performed By: #### H EPXA, TROPI, CDP, BMP #### [facility] [address] [place] [address] Director Veterinary: Norman Blake MD GFR/1.73 sq M.predicted among non-blacks MDRD (S/P/Bld) [Vol rate/Area] mL/min/{1.73_m2} Normal >60 [facility] Comment on above: Result Comment: These results are not intended for use in patients <18 years of age. eGFR results are calculated without a race factor using the 2020 CKD-EPI equation. Careful clinical correlation is recommended, particularly when comparing to results calculated using previous equations. The CKD-EPI equation is less accurate in patients with extremes of muscle mass, extra-renal metabolism of creatine, excessive creatine ingestion, or following therapy that affects renal tubular secretion. Performed By: #### H EPXA, TROPI, CDP, BMP #### [facility] [address] [place] [address] Director Veterinary: Norman Blake MD Glucose [Mass/Vol] 240 mg/dL High 70-99 [facility] Comment on above: Performed By: #### H EPXA, TROPI, CDP, BMP #### [facility] [address] [place] [address] Director Veterinary: Norman Blake MD Sodium [Moles/Vol] 130 mmol/L Low 135-144 [facility] Comment on above: Performed By: #### H EPXA, TROPI, CDP, BMP #### [facility] [address] [place] [address] Director Veterinary: Norman Blake MD Urea nitrogen [Mass/Vol] 6 mg/dL Normal 6-20 [facility] Comment on above: Performed By: #### H EPXA, TROPI, CDP, BMP #### [facility] [address] [place] [address] Director Veterinary: Norman Blake MD C Urineon 03-19-2023 C Urine Urine Culture ordered as a result of parameters set on specific urine dip and urine microsopic results. >3 Organisms Consistent with Contamination Recollection suggested. Normal [facility] Comment on above: Performed By: #### 6 [id number] ####[facility] (DEFAULT)[address] [place] [address] CBC with Diffon 03-19-2023 Abs. Basophil <0.03 Normal 0.00-0.20 [facility] Comment on above: Performed By: #### H EPXA, TROPI, CDP, BMP #### [facility] [address] [place] [address] Director Veterinary: Norman Blake MD Abs. Eosinophil <0.03 Normal 0.00-0.44 [facility] Comment on above: Performed By: #### H EPXA, TROPI, CDP, BMP #### [facility] [address] [place] [address] Director Veterinary: Norman Blake MD Abs.Imm.Granulocyte <0.03 Normal 0.00-0.30 [facility] Comment on above: Performed By: #### H EPXA, TROPI, CDP, BMP #### [facility] [address] [place] [address] Director Veterinary: Norman Blake MD Abs.Neutrophil (Seg) 5.63 k/uL Normal 1.50-8.10 [facility] Comment on above: Performed By: #### H EPXA, TROPI, CDP, BMP #### [facility] [address] [place] [address] Director Veterinary: Norman Blake MD Basophils/100 WBC (Bld) 0 % Normal 0-2 [facility] Comment on above: Performed By: #### H EPXA, TROPI, CDP, BMP #### [facility] [address] [place] [address] Director Veterinary: Norman Blake MD Eosinophils/100 WBC (Bld) 0 % Low 1-4 [facility] Comment on above: Performed By: #### H EPXA, TROPI, CDP, BMP #### [facility] [address] [place] [address] Director Veterinary: Norman Blake MD Erythrocyte distribution width (RBC) [Ratio] 14.0 % Normal 11.8-14.4 [facility] Comment on above: Performed By: #### H EPXA, TROPI, CDP, BMP #### [facility] [address] [place] [address] Director Veterinary: Norman Blake MD Hematocrit (Bld) [Volume fraction] 31.0 % Low 36.3-47.1 [facility] Comment on above: Performed By: #### H EPXA, TROPI, CDP, BMP #### [facility] [address] [place] [address] Director Veterinary: Norman Blake MD Hemoglobin (Bld) [Mass/Vol] 10.9 g/dL Low 11.9-15.1 [facility] Comment on above: Performed By: #### H EPXA, TROPI, CDP, BMP #### [facility] [address] [place] [address] Director Veterinary: Norman Blake MD Immature granulocytes/100 WBC (Bld) 0 % Normal 0 [facility] Comment on above: Performed By: #### H EPXA, TROPI, CDP, BMP #### [facility] [address] [place] [address] Director Veterinary: Norman Blake MD Lymphocytes (Bld) [#/Vol] 1.34 10*3/uL Normal 1.10-3.70 [facility] Comment on above: Performed By: #### H EPXA, TROPI, CDP, BMP #### [facility] [address] [place] [address] Director Veterinary: Norman Blake MD Lymphocytes/100 WBC (Bld) 18 % Low 24-43 [facility] Comment on above: Performed By: #### H EPXA, TROPI, CDP, BMP #### [facility] [place] [address] Director Veterinary: Norman Blake MD MCH (RBC) [Entitic mass] 25.8 pg Normal 25.2-33.5 [facility] Comment on above: Performed By: #### H EPXA, TROPI, CDP, BMP #### [facility] [address] [place] [address] Director Veterinary: Norman Blake MD MCHC (RBC) [Mass/Vol] 35.2 g/dL High 28.4-34.8 [facility] Comment on above: Performed By: #### H EPXA, TROPI, CDP, BMP #### [facility] [address] [place] [address] Director Veterinary: Norman Blake MD MCV (RBC) [Entitic vol] 73.3 fL Low 82.6-102.9 [facility] Comment on above: Performed By: #### H EPXA, TROPI, CDP, BMP #### [facility] [address] [place] [address] Director Veterinary: Norman Blake MD Monocytes (Bld) [#/Vol] 0.41 10*3/uL Normal 0.10-1.20 [facility] Comment on above: Performed By: #### H EPXA, TROPI, CDP, BMP #### [facility] [address] [place] [address] Director Veterinary: Norman Blake MD Monocytes/100 WBC (Bld) 6 % Normal 3-12 [facility] Comment on above: Performed By: #### H EPXA, TROPI, CDP, BMP #### [facility] [address] [place] [address] Director Veterinary: Norman Blake MD Neutrophil (Seg) 76 % High 36-65 [facility] Comment on above: Performed By: #### H EPXA, TROPI, CDP, BMP #### [address] [address] Director Veterinary: Norman Blake MD NRBC Automated 0.0 per 100 WBC Normal 0.0 [facility] Comment on above: Performed By: #### H EPXA, TROPI, CDP, BMP #### [facility] [address] [place] [address] 60841 Director Veterinary: Norman Blake MD Platelet mean volume (Bld) [Entitic vol] 9.5 fL Normal 8.1-13.5 [facility] Comment on above: Performed By: #### H EPXA, TROPI, CDP, BMP #### [facility] [address] [place] [address] 7[address] Director Veterinary: Norman Blake MD Platelets (Bld) [#/Vol] 189 10*3/uL Normal 138-453 [facility] Comment on above: Performed By: #### H EPXA, TROPI, CDP, BMP #### [facility] [address] [place] [address] 62958 Director Veterinary: Norman Blake MD RBC (Bld) [#/Vol] 4.23 10*6/uL Normal 3.95-5.11 [facility] Comment on above: Performed By: #### H EPXA, TROPI, CDP, BMP #### [facility] [address] [place] [address] 39293 Director Veterinary: Norman Blake MD RBC morphology finding Nom (Bld) MICROCYTOSIS PRESENT Normal [facility] Comment on above: Performed By: #### H EPXA, TROPI, CDP, BMP #### [address] [address] Director Veterinary: Norman Blake MD WBC (Bld) [#/Vol] 7.4 10*3/uL Normal 3.5-11.3 [facility] Comment on above: Performed By: #### H EPXA, TROPI, CDP, BMP #### [address] [address] Director Veterinary: Norman Blake MD Abs. Basophil <0.03 Normal 0.00-0.20 [facility] Comment on above: Performed By: #### H EPXA, TROPI, CDP, BMP #### [address] [address] Director Veterinary: Norman Blake MD Abs. Eosinophil <0.03 Normal 0.00-0.44 [facility] Comment on above: Performed By: #### H EPXA, TROPI, CDP, BMP #### [address] [address] Director Veterinary: Norman Blake MD Abs.Imm.Granulocyte <0.03 Normal 0.00-0.30 [facility] Comment on above: Performed By: #### H EPXA, TROPI, CDP, BMP #### [address] [address] Director Veterinary: Norman Blake MD Abs.Neutrophil (Seg) 7.00 k/uL Normal 1.50-8.10 [facility] Comment on above: Performed By: #### H EPXA, TROPI, CDP, BMP #### [place] [address] Director Veterinary: Norman Blake MD Basophils/100 WBC (Bld) 0 % Normal 0-2 [facility] Comment on above: Performed By: #### H EPXA, TROPI, CDP, BMP #### [address] [address] Director Veterinary: Norman Blake MD Eosinophils/100 WBC (Bld) 0 % Low 1-4 [facility] Comment on above: Performed By: #### H EPXA, TROPI, CDP, BMP #### [facility] [address] [place] [address]20 Director Veterinary: Norman Blake MD Erythrocyte distribution width (RBC) [Ratio] 14.2 % Normal 11.8-14.4 [facility] Comment on above: Performed By: #### H EPXA, TROPI, CDP, BMP #### [facility] [address] [place] [address] 77[address] Director Veterinary: Norman Blake MD Hematocrit (Bld) [Volume fraction] 31.1 % Low 36.3-47.1 [facility] Comment on above: Performed By: #### H EPXA, TROPI, CDP, BMP #### [facility] [address] [place] [address] 41889 Director Veterinary: Norman Blake MD Hemoglobin (Bld) [Mass/Vol] 10.8 g/dL Low 11.9-15.1 [facility] Comment on above: Performed By: #### H EPXA, TROPI, CDP, BMP #### [facility] [address] [place] [address] Director Veterinary: Norman Blake MD Immature granulocytes/100 WBC (Bld) 0 % Normal 0 [facility] Comment on above: Performed By: #### H EPXA, TROPI, CDP, BMP #### [facility] [address] [place] [address] Director Veterinary: Norman Blake MD Lymphocytes (Bld) [#/Vol] 0.85 10*3/uL Low 1.10-3.70 [facility] Comment on above: Performed By: #### H EPXA, TROPI, CDP, BMP #### [address] [address] Director Veterinary: Norman Blake MD Lymphocytes/100 WBC (Bld) 10 % Low 24-43 [facility] Comment on above: Performed By: #### H EPXA, TROPI, CDP, BMP #### [address] [address] Director Veterinary: Norman Blake MD MCH (RBC) [Entitic mass] 25.4 pg Normal 25.2-33.5 [facility] Comment on above: Performed By: #### H EPXA, TROPI, CDP, BMP #### [address] [address] Director Veterinary: Norman Blake MD MCHC (RBC) [Mass/Vol] 34.7 g/dL Normal 28.4-34.8 [facility] Comment on above: Performed By: #### H EPXA, TROPI, CDP, BMP #### [address] [address] Director Veterinary: Norman Blake MD MCV (RBC) [Entitic vol] 73.2 fL Low 82.6-102.9 [facility] Comment on above: Performed By: #### H EPXA, TROPI, CDP, BMP #### [address] [address] Director Veterinary: Norman Blake MD Monocytes (Bld) [#/Vol] 0.44 10*3/uL Normal 0.10-1.20 [facility] Comment on above: Performed By: #### H EPXA, TROPI, CDP, BMP #### [address] [address] Director Veterinary: Norman Blake MD Monocytes/100 WBC (Bld) 5 % Normal 3-12 [facility] Comment on above: Performed By: #### H EPXA, TROPI, CDP, BMP #### [facility] [address] [place] [address] 60[address] Director Veterinary: Norman Blake MD Neutrophil (Seg) 84 % High 36-65 [facility] Comment on above: Performed By: #### H EPXA, TROPI, CDP, BMP #### [facility] [address] [place] [address] 8[address]27 Director Veterinary: Norman Blake MD NRBC Automated 0.0 per 100 WBC Normal 0.0 [facility] Comment on above: Performed By: #### H EPXA, TROPI, CDP, BMP #### [facility] [address] [place] [address] 8[address]76 Director Veterinary: Norman Blake MD Platelet mean volume (Bld) [Entitic vol] 9.5 fL Normal 8.1-13.5 [facility] Comment on above: Performed By: #### H EPXA, TROPI, CDP, BMP #### [facility] [address] [place] [address] Director Veterinary: Norman Blake MD Platelets (Bld) [#/Vol] 194 10*3/uL Normal 138-453 [facility] Comment on above: Performed By: #### H EPXA, TROPI, CDP, BMP #### [facility] [address] [place] [address] 31402 Director Veterinary: Norman Blake MD RBC (Bld) [#/Vol] 4.25 10*6/uL Normal 3.95-5.11 [facility] Comment on above: Performed By: #### H EPXA, TROPI, CDP, BMP #### [facility] [address] [place] [address] 711[address] Director Veterinary: Norman Blake MD RBC morphology finding Nom (Bld) MICROCYTOSIS PRESENT Normal [facility] Comment on above: Performed By: #### H EPXA, TROPI, CDP, BMP #### [address] [address] Director Veterinary: Norman Blake MD WBC (Bld) [#/Vol] 8.3 10*3/uL Normal 3.5-11.3 [facility] Comment on above: Performed By: #### H EPXA, TROPI, CDP, BMP #### [facility] [address] [place] [address] 00146 Director Veterinary: Norman Blake MD Cult,Urineon 03-19-2023 Cult,Urine Specimen Description .CLEAN CATCH URINE Culture NO GROWTH Report Status FINAL 03/19/2023 Normal [facility] Comment on above: Performed By: #### U RC #### [address] [address] Director Veterinary: Norman Blake MD Electrolyteson 03-19-2023 Anion gap [Moles/Vol] 10 mmol/L Normal 9-17 [facility] Comment on above: Performed By: #### Jam RODAS IOCAL #### [address] [address] Director Veterinary: Norman Blake MD Chloride [Moles/Vol] 94 mmol/L Low 98-107 [facility] Comment on above: Performed By: #### Jam RODAS IOCAL #### [facility] [address] [place] [address] 39198 Director Veterinary: Norman Blake MD CO2 [Moles/Vol] 25 mmol/L Normal 20-31 [facility] Comment on above: Performed By: #### Jam RODAS IOCAL #### [facility] [address] [place] [address] 14376 Director Veterinary: Norman Blake MD Potassium [Moles/Vol] 3.5 mmol/L Low 3.7-5.3 [facility] Comment on above: Performed By: #### D CLARK, IOCAL #### [facility] [address] [place] [address]671 Director Veterinary: Norman Blake MD Sodium [Moles/Vol] 129 mmol/L Low 135-144 [facility] Comment on above: Performed By: #### D CLARK, IOCAL #### [facility] [address] [place] [address] 80395 Director Veterinary: Norman Blake MD Anion gap [Moles/Vol] 11 mmol/L Normal 9-17 [facility] Comment on above: Performed By: #### H EPXA, TROPI, CDP, BMP #### [facility] [address] [place] [address] 07370 Director Veterinary: Norman Blake MD Chloride [Moles/Vol] 95 mmol/L Low 98-107 [facility] Comment on above: Performed By: #### H EPXA, TROPI, CDP, BMP #### [facility] [address] [place] [address] Director Veterinary: Norman Blake MD CO2 [Moles/Vol] 24 mmol/L Normal 20-31 [facility] Comment on above: Performed By: #### H EPXA, TROPI, CDP, BMP #### [facility] [address] [place] [address] 27097 Director Veterinary: Norman Blake MD Potassium [Moles/Vol] 3.4 mmol/L Low 3.7-5.3 [facility] Comment on above: Performed By: #### H EPXA, TROPI, CDP, BMP #### [facility] [address] [place] [address] 86191 Director Veterinary: Norman Blake MD Sodium [Moles/Vol] 130 mmol/L Low 135-144 [facility] Comment on above: Performed By: #### H EPXA, TROPI, CDP, BMP #### [facility] [address] [place], [place] [address], [place] [address] Director Veterinary: Norman Blake MD Heparin Anti-Xaon 03-19-2023 Heparin Anti-Xa 0.37 IU/L Normal [facility] Comment on above: Performed By: #### R EJEC, HEPXA #### [facility] [address] [place] [address] 60555 Director Veterinary: Norman Blake MD Heparin Anti-Xa 0.40 IU/L Normal [facility] Comment on above: Performed By: #### H EPXA, TROPI, CDP, BMP #### [facility] [address] [place] [address] 98180 Director Veterinary: Norman Blake MD Heparin Anti-Xa 0.16 IU/L Normal [facility] Comment on above: Performed By: #### H EPXA, TROPI, CDP, BMP #### [facility] [address] [place] [address] 80560 Director Veterinary: Norman Blake MD Heparin Anti-Xa 0.12 IU/L Normal [facility] Comment on above: Performed By: #### H EPXA, TROPI, CDP, BMP #### [facility] [address] [place] [address] 49492 Director Veterinary: Norman Blake MD MRSA, DNA, Nasalon MRSA, DNA, Nasal Negative Normal [facility] Comment on above: Result Comment: NEGA TIVE: MRSA DNA not detected by nucleic acid amplification. Results should be used as an adjunct to nosocomial control efforts to identify patients needing enhanced precautions. The test is not intended to identify patients with staphylococcal infections. Results should not be used to guide or monitor treatment for MRSA infections. Performed By: #### D CLARK, IOCAL #### [facility] [address] [place] [address]343 Director Veterinary: Norman Blake MD Magnesiumon 03-19-2023 Magnesium [Mass/Vol] 1.9 mg/dL Normal 1.6-2.6 [facility] Comment on above: Performed By: #### D CLARK, IOCAL #### [facility] [address] [place] [address] 03025 Director Veterinary: Norman Blake MD Magnesium [Mass/Vol] 1.9 mg/dL Normal 1.6-2.6 [facility] Comment on above: Performed By: #### H EPXA, TROPI, CDP, BMP #### [facility] [address] [place] [address] 11076 Director Veterinary: Norman Blake MD Magnesium [Mass/Vol] 2.0 mg/dL Normal 1.6-2.6 [facility] Comment on above: Performed By: #### R EJEC, HEPXA #### [facility] [address] [place] [address]14 Director Veterinary: Norman Blake MD Magnesium [Mass/Vol] 2.0 mg/dL Normal 1.6-2.6 [facility] Comment on above: Performed By: #### Jam RODAS, IOCAL #### [facility] [address] [place] [address] 81810 Director Veterinary: Norman Blake MD Magnesium [Mass/Vol] 1.6 mg/dL Normal 1.6-2.6 [facility] Comment on above: Performed By: #### H EPXA, TROPI, CDP, BMP #### [facility] [address] [place] [address] 47829 Director Veterinary: Norman Blake MD Phosphorus, Inorg.on 023 Phosphorus, Inorg. 1.7 mg/dL Low 2.6-4.5 [facility] Comment on above: Performed By: #### D CLARK, IOCAL #### [facility] [address] [place] [address] 68985 Director Veterinary: Norman Blake MD Phosphorus, Inorg. 1.5 mg/dL Low 2.6-4.5 [facility] Comment on above: Performed By: #### H EPXA, TROPI, CDP, BMP #### [facility] [address] [place] [address] 38485 Director Veterinary: Norman Blake MD Phosphorus, Inorg. 1.3 mg/dL Low 2.6-4.5 [facility] Comment on above: Performed By: #### R EJEC, HEPXA #### [facility] [address] [place] [address] 65838 Director Veterinary: Norman Blake MD Phosphorus, Inorg. 1.1 mg/dL Low 2.6-4.5 [facility] Comment on above: Performed By: #### D CLARK, IOCAL #### [facility] [address] [place] [address] 20814 Director Veterinary: Norman Blake MD Phosphorus, Inorg. 0.7 mg/dL Critically low 2.6-4.5 [facility] Comment on above: Performed By: #### H EPXA, TROPI, CDP, BMP #### [facility] [address] [place] [address] 06916 Director Veterinary: Norman Blake MD Troponinon 03-19-2023 Troponin, High Sens 328 ng/L Critically high 0-14 [facility] Comment on above: Result Comment: High Sensitivity Troponin values cannot be compared with other Troponin methodologies. Previous Alert Value Reported Performed By: #### D CLARK, IOCAL #### [facility] [address] [place] [address] 69976 Director Veterinary: Norman Blake MD Troponin, High Sens 389 ng/L Critically high 0-14 [facility] Comment on above: Result Comment: High Sensitivity Troponin values cannot be compared with other Troponin methodologies. Previous Alert Value Reported Performed By: #### H EPXA, TROPI, CDP, BMP #### [facility] [address] Director Veterinary: Norman Blake MD Troponin, High Sens 481 ng/L Critically high 0-14 [facility] Comment on above: Result Comment: High Sensitivity Troponin values cannot be compared with other Troponin methodologies. Previous Alert Value Reported Performed By: #### H EPXA, TROPI, CDP, BMP #### [address] [address] Director Veterinary: Norman Blake MD Troponin, High Sens 649 ng/L Critically high 0-14 [facility] Comment on above: Result Comment: High Sensitivity Troponin values cannot be compared with other Troponin methodologies. Previous Alert Value Reported Performed By: #### H EPXA, TROPI, CDP, BMP #### [address] [address] Director Veterinary: Norman Blake MD Venous Blood Gaseson 023 Body Temp. 37.0 Normal [facility] Comment on above: Performed By: #### Jam RODAS IOCAL #### [address] [address] Director Veterinary: Norman Blake MD Carboxy Hgb 1.1 % Normal 0-5 [facility] Comment on above: Result Comment: Reference Range: Non-Smokers 0-2% Average Smoker 2-4% Heavy Smoker <10% Performed By: #### Jam RODAS IOCAL #### [address] [address] Director Veterinary: Norman Blake MD FIO2 Unknown Normal [facility] Comment on above: Performed By: #### Jam RODAS, IOCAL #### [facility] [address] [place] [address]14 Director Veterinary: Norman Blake MD HCO3 (Bld) [Moles/Vol] 25.9 mmol/L Normal 24-30 [facility] Comment on above: Performed By: #### D CLARK, IOCAL #### [facility] [address] [place] [address] Director Veterinary: Norman Blake MD Oxygen saturation in Blood 97.3 % High 60.0-85.0 [facility] Comment on above: Performed By: #### D CLARK, IOCAL #### [facility] [address] [place] [address] Director Veterinary: Norman Blake MD pCO2 40.3 mm Hg Normal 39-55 [facility] Comment on above: Performed By: #### Jam RODAS, IOCAL #### [facility] [address] [place] [address] 71375 Director Veterinary: Norman Blake MD pH (Bld) 7.424 [pH] High 7.320-7.420 [facility] Comment on above: Performed By: #### Jam RODAS, IOCAL #### [facility] [address] [place] [address] 53282 Director Veterinary: Norman Blake MD pO2 128.0 mm Hg High 30-50 [facility] Comment on above: Performed By: #### Jam RODAS, IOCAL #### [facility] [address] [place] [address] 86746 Director Veterinary: Norman Blake MD Positive Base Excess 1.8 mmol/L Normal 0.0-2.0 [facility] Comment on above: Performed By: #### D CLARK, IOCAL #### [facility] [address] [place] [address]174 Director Veterinary: Norman Blake MD .Auto Diff - Auto Archer % 3 % Normal -12 [facility] Comment on above: Performed By: #### 7 [id number], [id number], [id number], [id number], [id number], [id number] ####[facility] (DEFAULT)[address] [place] [address] 25097 Baso Abs# 0.1 x10 Normal 0.0-0.2 [facility] Comment on above: Performed By: #### 7 [id number], [id number], [id number], [id number], [id number], [id number] ####[facility] (DEFAULT)[address] [place] [address]176 Basophils/100 WBC (Bld) 0.6 % Normal 0.2-2.0 [facility] Comment on above: Performed By: #### 7 [id number], [id number], [id number], [id number], [id number], [id number] ####[facility] (DEFAULT)[address] [place] [address] 71625 Eos Abs# 0.0 x10 Normal 0.0-0.4 [facility] Comment on above: Performed By: #### 7 [id number], [id number], [id number], [id number], [id number], [id number] ####[facility] (DEFAULT)[address] [place] [address] 05321 Eosinophils/100 WBC (Bld) 0.1 % Low 0.9-4.0 [facility] Comment on above: Performed By: #### 7 [id number], [id number], [id number], [id number], [id number], [id number] ####[facility] (DEFAULT)[address] [place] [address] 03092 Lymph Abs# 1.4 x10 Normal 1.3-2.9 [facility] Comment on above: Performed By: #### 7 245308, [id number], [id number], [id number], [id number], [id number] ####[facility] (DEFAULT)[address] [place] [address] 17001 Lymphocytes/100 WBC (Bld) 6 % Low 14-48 [facility] Comment on above: Performed By: #### 7 244557, [id number], [id number], [id number], [id number], [id number] ####[facility] (DEFAULT)[address] [place] [address] 38926 Archer Abs# 0.7 x10 Normal 0.0-0.8 [facility] Comment on above: Performed By: #### 7 984865, [id number], [id number], [id number], [id number], [id number] ####[facility] (DEFAULT)[address] [place] [address] 12393 Neut Abs# 19.8 x10 High 1.5-9.2 [facility] Comment on above: Performed By: #### 7 645240, [id number], [id number], [id number], [id number], [id number] ####[facility] (DEFAULT)[address] [place] [address] Neutrophils/100 WBC (Bld) 90 % High 44-88 [facility] Comment on above: Performed By: #### 7 367450, [id number], [id number], [id number], [id number], [id number] ####[facility] (DEFAULT)[address] [place] [address]38 APTTon 03-18-2023 aPTT Coag (Bld) [Time] 20.5 s Low 23.0-36.5 [facility] Comment on above: Result Comment: IV Heparin Therapy Range: 66.0-92.0 sec Performed By: #### R EJEC, HEPXA #### [facility] [address] [place] [address] 78284 Director Veterinary: Norman Blake MD Acet Levelon 03-18-2023 Acetaminoph Lvl <10 Normal 10-30 [facility] Comment on above: Performed By: #### 4 [id number] #### [facility] (DEFAULT) [address] [place] [address] Arterial Blood Gas Standardo n 03-18-2023 Cami Test Art Positive Normal [facility] Comment on above: Performed By: #### 1 [id number] ####[facility] (DEFAULT)[address] [place] [address]3790 Breakpoint Hemo Normal [facility] Comment on above: Performed By: #### 1 [id number] ####[facility] (DEFAULT)[address] [place] [address] Device Room Air Normal [facility] Comment on above: Performed By: #### 1 [id number] ####[facility] (DEFAULT)[address] [place] [address]76 Fio2 Art 21.0 % Normal 21.0-100.0 [facility] Comment on above: Performed By: #### 1 [id number] ####[facility] (DEFAULT)[address] [place] [address] 68829 Oxygen saturation in Blood 96.9 % Normal 95.0-100.0 [facility] Comment on above: Performed By: #### 1 [id number] ####[facility] (DEFAULT)[address] [place] [address] pH Art 6.89 Critically abnormal 7.37-7.44 [facility] Comment on above: Result Comment: Crit ical pH results and PCO2 result will not calculate due to it being < 9.5 results given to Radha Cintron @2318 03/18/2023 per Anjana Garcia RRT. RBV Performed By: #### 1 [id number] ####[facility] (DEFAULT)[address] [place] [address] 47251 pO2 Art 144 mmHg High 75-100 [facility] Comment on above: Performed By: #### 1 [id number] ####[facility] (DEFAULT)[address] [place] [address] Puncture Site Right Radial Normal [facility] Comment on above: Performed By: #### 1 [id number] ####[facility] (DEFAULT)[address] [place] [address] Rate: 38 Invalid Interpretation Code [facility] Comment on above: Performed By: #### 1 [id number] ####[facility] (DEFAULT)[address] [place] [address] 28761 BNP.on 03-18-2023 Natriuretic peptide B (Bld) [Mass/Vol] 170.0 pg/mL High 0.0-100.0 [facility] Comment on above: Result Comment: BNP results greater than 100 pg/mL are considered abnormal and suggestive of patients with CHF. Higher BNP concentrations measured in the first 72 hours after an acute coronary syndorme are associated with an increased risk of , myocardial infarction, and CHF. Performed By: #### 4 [id number] #### [facility] (DEFAULT) [address] [place] [address] Basic Metabolic Profon 03-18 Potassium [Moles/Vol] 2.2 mmol/L Critically low 3.7-5.3 [facility] Comment on above: Performed By: #### Jam RODAS IOCAL #### [facility] [address] [place] [address]331 Director Veterinary: Norman Blake MD Anion gap [Moles/Vol] 11 mmol/L Normal 9-17 [facility] Comment on above: Performed By: #### Jam RODAS IOCAL #### [facility] [address] [place] [address] 93869 Director Veterinary: Norman Blake MD Calcium [Mass/Vol] 6.4 mg/dL Low 8.6-10.4 [facility] Comment on above: Performed By: #### Jam RODAS, IOCAL #### [facility] [address] [place] [address] 92369 Director Veterinary: Norman Blake MD Chloride [Moles/Vol] 101 mmol/L Normal 98-107 [facility] Comment on above: Performed By: #### Jam RODAS, IOCAL #### [facility] [address] [place] [address] 93324 Director Veterinary: Norman Blake MD CO2 [Moles/Vol] 19 mmol/L Low 20-31 [facility] Comment on above: Performed By: #### Jam RODAS, IOCAL #### [facility] [address] [place] [address]170 Director Veterinary: Norman Blake MD Creatinine [Mass/Vol] 0.4 mg/dL Low 0.5-0.9 [facility] Comment on above: Performed By: #### Jam RODAS IOCAL #### [facility] [address] [place] [address] 40144 Director Veterinary: Norman Blake MD GFR/1.73 sq M.predicted among non-blacks MDRD (S/P/Bld) [Vol rate/Area] mL/min/{1.73_m2} Normal >60 [facility] Comment on above: Result Comment: These results are not intended for use in patients <18 years of age. eGFR results are calculated without a race factor using the 2020 CKD-EPI equation. Careful clinical correlation is recommended, particularly when comparing to results calculated using previous equations. The CKD-EPI equation is less accurate in patients with extremes of muscle mass, extra-renal metabolism of creatine, excessive creatine ingestion, or following therapy that affects renal tubular secretion. Performed By: #### Jam RODAS IOCAL #### [facility] [address] [place] [address] Director Veterinary: Norman Blake MD Glucose [Mass/Vol] 149 mg/dL High 70-99 [facility] Comment on above: Performed By: #### Jam RODAS IOCAL #### [facility] [address] [place] [address] 39319 Director Veterinary: Norman Blake MD Sodium [Moles/Vol] 131 mmol/L Low 135-144 [facility] Comment on above: Performed By: #### Jam RODAS IOCAL #### [facility] [address] [place] [address] 155[address] Director Veterinary: Norman Blake MD Urea nitrogen [Mass/Vol] 8 mg/dL Normal 6-20 [facility] Comment on above: Performed By: #### Jam RODAS, IOCAL #### [facility] [address] [place] [address] 18[address] Director Veterinary: Norman Blake MD Potassium [Moles/Vol] 2.5 mmol/L Critically low 3.7-5.3 [facility] Comment on above: Result Comment: TEST CONFIRMED Performed By: #### R EJEC, HEPXA #### [facility] [address] [place] [address] Director Veterinary: Norman Blake MD Anion gap [Moles/Vol] 12 mmol/L Normal 9-17 [facility] Comment on above: Performed By: #### R EJEC, HEPXA #### [address] [address] Director Veterinary: Norman Blake MD Calcium [Mass/Vol] 6.5 mg/dL Low 8.6-10.4 [facility] Comment on above: Performed By: #### R EJEC, HEPXA #### [address] [address] Director Veterinary: Norman Blake MD Chloride [Moles/Vol] 104 mmol/L Normal 98-107 [facility] Comment on above: Performed By: #### R EJEC, HEPXA #### [address] [address] Director Veterinary: Norman Blake MD CO2 [Moles/Vol] 13 mmol/L Low 20-31 [facility] Comment on above: Performed By: #### R EJEC, HEPXA #### [facility] [address] [place] [address] 08718 Director Veterinary: Norman Blake MD Creatinine [Mass/Vol] 0.5 mg/dL Normal 0.5-0.9 [facility] Comment on above: Performed By: #### R EJEC, HEPXA #### [facility] [address] [place] [address] 817[address] Director Veterinary: Norman Blake MD GFR/1.73 sq M.predicted among non-blacks MDRD (S/P/Bld) [Vol rate/Area] mL/min/{1.73_m2} Normal >60 [facility] Comment on above: Result Comment: These results are not intended for use in patients <18 years of age. eGFR results are calculated without a race factor using the 2020 CKD-EPI equation. Careful clinical correlation is recommended, particularly when comparing to results calculated using previous equations. The CKD-EPI equation is less accurate in patients with extremes of muscle mass, extra-renal metabolism of creatine, excessive creatine ingestion, or following therapy that affects renal tubular secretion. Performed By: #### R EJEC, HEPXA #### [facility] [address] [place] [address] 76871 Director Veterinary: Norman Blake MD Glucose [Mass/Vol] 219 mg/dL High 70-99 [facility] Comment on above: Performed By: #### R EJEC, HEPXA #### [facility] [address] [place] [address] 26642 Director Veterinary: Norman Blake MD Sodium [Moles/Vol] 129 mmol/L Low 135-144 [facility] Comment on above: Performed By: #### R EJEC, HEPXA #### [facility] [address] [place] [address] 85866 Director Veterinary: Norman Blake MD Urea nitrogen [Mass/Vol] 10 mg/dL Normal 6-20 [facility] Comment on above: Performed By: #### R EJEC, HEPXA #### [facility] [address] [place] [address] Director Veterinary: Norman Blake MD Anion gap [Moles/Vol] 18 mmol/L High 9-17 [facility] Comment on above: Performed By: #### R EJEC, HEPXA #### [facility] [address] [place] [address] 84009 Director Veterinary: Norman Blake MD CO2 [Moles/Vol] 7 mmol/L Critically low 20-31 [facility] Comment on above: Performed By: #### R EJEC, HEPXA #### [address] [address] Director Veterinary: Norman Blake MD Calcium [Mass/Vol] 6.5 mg/dL Low 8.6-10.4 [facility] Comment on above: Performed By: #### R EJEC, HEPXA #### [facility] [address] [place] [address] 51706 Director Veterinary: Norman Blake MD Chloride [Moles/Vol] 105 mmol/L Normal 98-107 [facility] Comment on above: Performed By: #### R EJEC, HEPXA #### [address] [address] Director Veterinary: Norman Blake MD Creatinine [Mass/Vol] 0.7 mg/dL Normal 0.5-0.9 [facility] Comment on above: Performed By: #### R EJEC, HEPXA #### [address] [address] Director Veterinary: Norman Blake MD GFR/1.73 sq M.predicted among non-blacks MDRD (S/P/Bld) [Vol rate/Area] mL/min/{1.73_m2} Normal >60 [facility] Comment on above: Result Comment: These results are not intended for use in patients <18 years of age. eGFR results are calculated without a race factor using the 2020 CKD-EPI equation. Careful clinical correlation is recommended, particularly when comparing to results calculated using previous equations. The CKD-EPI equation is less accurate in patients with extremes of muscle mass, extra-renal metabolism of creatine, excessive creatine ingestion, or following therapy that affects renal tubular secretion. Performed By: #### R EJEC, HEPXA #### [address] [address] Director Veterinary: Norman Blake MD Glucose [Mass/Vol] 267 mg/dL High 70-99 [facility] Comment on above: Performed By: #### R EJEC, HEPXA #### [address] [address] Director Veterinary: Norman Blake MD Potassium [Moles/Vol] 3.8 mmol/L Normal 3.7-5.3 [facility] Comment on above: Performed By: #### R EJEC, HEPXA #### [address] [address] Director Veterinary: Norman Blake MD Sodium [Moles/Vol] 130 mmol/L Low 135-144 [facility] Comment on above: Performed By: #### R EJEC, HEPXA #### [address] [address] Director Veterinary: Norman Blake MD Urea nitrogen [Mass/Vol] 15 mg/dL Normal 6-20 [facility] Comment on above: Performed By: #### R EJEC, HEPXA #### [address] [address] Director Veterinary: Norman Blake MD Anion Gap Unable to calculate anion gap due to CO2 less than 6. Normal 9-17 [facility] Comment on above: Performed By: #### H EPXA, TROPI, CDP, BMP #### [address] [address] Director Veterinary: Norman Blake MD Calcium [Mass/Vol] 6.4 mg/dL Low 8.6-10.4 [facility] Comment on above: Performed By: #### H EPXA, TROPI, CDP, BMP #### [address] [address] Director Veterinary: Norman Blake MD Chloride [Moles/Vol] 104 mmol/L Normal 98-107 [facility] Comment on above: Performed By: #### H EPXA, TROPI, CDP, BMP #### [facility] [place] [address] Director Veterinary: Norman Blake MD CO2 [Moles/Vol] mmol/L Critically low 20-31 [facility] Comment on above: Performed By: #### H EPXA, TROPI, CDP, BMP #### [facility] [address] [place] [address] Director Veterinary: Norman Blake MD Creatinine [Mass/Vol] 0.7 mg/dL Normal 0.5-0.9 [facility] Comment on above: Performed By: #### H EPXA, TROPI, CDP, BMP #### [address] [address] Director Veterinary: Norman Blake MD GFR/1.73 sq M.predicted among non-blacks MDRD (S/P/Bld) [Vol rate/Area] mL/min/{1.73_m2} Normal >60 [facility] Comment on above: Result Comment: These results are not intended for use in patients <18 years of age. eGFR results are calculated without a race factor using the 2020 CKD-EPI equation. Careful clinical correlation is recommended, particularly when comparing to results calculated using previous equations. The CKD-EPI equation is less accurate in patients with extremes of muscle mass, extra-renal metabolism of creatine, excessive creatine ingestion, or following therapy that affects renal tubular secretion. Performed By: #### H EPXA, TROPI, CDP, BMP #### [facility] [address] [place] [address] Director Veterinary: Norman Blake MD Glucose [Mass/Vol] 254 mg/dL High 70-99 [facility] Comment on above: Performed By: #### H EPXA, TROPI, CDP, BMP #### [facility] [address] [place] [address] 59545 Director Veterinary: Norman Blake MD Potassium [Moles/Vol] 3.8 mmol/L Normal 3.7-5.3 [facility] Comment on above: Performed By: #### H EPXA, TROPI, CDP, BMP #### [facility] [address] [place] [address] Director Veterinary: Norman Blake MD Sodium [Moles/Vol] 129 mmol/L Low 135-144 [facility] Comment on above: Performed By: #### H EPXA, TROPI, CDP, BMP #### [facility] [address] [place] [address] Director Veterinary: Norman Blake MD Urea nitrogen [Mass/Vol] 17 mg/dL Normal 6-20 [facility] Comment on above: Performed By: #### H EPXA, TROPI, CDP, BMP #### [facility] [address] [place] [address] Director Veterinary: Norman Blake MD Beta Hydroxybutyrateon 03-18 Beta Hydroxybutyrate 3.84 mmol/L High 0.02-0.27 [facility] Comment on above: Performed By: #### H EPXA, TROPI, CDP, BMP #### [facility] [address] [place] [address] 9[address] Director Veterinary: Norman Blake MD CBCon 03-18-2023 Erythrocyte distribution width (RBC) [Ratio] 14.2 % Normal 11.8-14.4 [facility] Comment on above: Performed By: #### R EJEC, HEPXA #### [facility] [address] [place] [address] 34814 Director Veterinary: Norman Blake MD Hematocrit (Bld) [Volume fraction] 37.1 % Normal 36.3-47.1 [facility] Comment on above: Performed By: #### R EJEC, HEPXA #### [facility] [address] [place] [address] 325[address] Director Veterinary: Norman Blake MD Hemoglobin (Bld) [Mass/Vol] 11.7 g/dL Low 11.9-15.1 [facility] Comment on above: Performed By: #### R EJEC, HEPXA #### [address] [address] Director Veterinary: Norman Blake MD MCH (RBC) [Entitic mass] 24.9 pg Low 25.2-33.5 [facility] Comment on above: Performed By: #### R EJEC, HEPXA #### [address] [address] Director Veterinary: Norman Blake MD MCHC (RBC) [Mass/Vol] 31.5 g/dL Normal 28.4-34.8 [facility] Comment on above: Performed By: #### R EJEC, HEPXA #### [address] [address] Director Veterinary: Norman Blake MD MCV (RBC) [Entitic vol] 79.1 fL Low 82.6-102.9 [facility] Comment on above: Performed By: #### R EJEC, HEPXA #### [address] [address] Director Veterinary: Norman Blake MD NRBC Automated 0.0 per 100 WBC Normal 0.0 [facility] Comment on above: Performed By: #### R EJEC, HEPXA #### [address] [address] Director Veterinary: Norman Blake MD Platelet mean volume (Bld) [Entitic vol] 10.0 fL Normal 8.1-13.5 [facility] Comment on above: Performed By: #### R EJEC, HEPXA #### [address] [address] Director Veterinary: Norman Blake MD Platelets (Bld) [#/Vol] 232 10*3/uL Normal 138-453 [facility] Comment on above: Performed By: #### R EJEC, HEPXA #### [facility] [address] [place], [place] [id number] Director Veterinary: Norman Blake MD RBC (Bld) [#/Vol] 4.69 10*6/uL Normal 3.95-5.11 [facility] Comment on above: Performed By: #### R EJEC, HEPXA #### [facility] [address] [place] [address] Director Veterinary: Normna Blake MD WBC (Bld) [#/Vol] 16.6 10*3/uL High 3.5-11.3 [facility] Comment on above: Performed By: #### R EJEC, HEPXA #### [address] [address] Director Veterinary: Norman Blake MD CBC w/ Auto Diffon 3 Erythrocyte distribution width (RBC) [Ratio] 15.6 % High 11.5-15.0 [facility] Comment on above: Order Comment: Patie nt is a hard stick. 3 Nurses have tried to do an IV. I am waiting to see if they get the IV started. 03/17/2023 22:08:47 EDT Performed By: #### 7 [id number], [id number], [id number], [id number], [id number], [id number] ####[facility] (DEFAULT)[address] [place] [address] Hematocrit (Bld) [Volume fraction] 47.0 % High 33.7-40.4 [facility] Comment on above: Order Comment: Patie nt is a hard stick. 3 Nurses have tried to do an IV. I am waiting to see if they get the IV started. 03/17/2023 22:08:47 EDT Performed By: #### 7 [id number], [id number], [id number], [id number], [id number], [id number] ####[facility] (DEFAULT)[address] [place] [address] Hemoglobin (Bld) [Mass/Vol] 14.5 g/dL Normal 11.3-15.9 [facility] Comment on above: Order Comment: Patie nt is a hard stick. 3 Nurses have tried to do an IV. I am waiting to see if they get the IV started. 03/17/2023 22:08:47 EDT Performed By: #### 7 [id number], [id number], [id number], [id number], [id number], [id number] ####[facility] (DEFAULT)[address] [place] [address] 11484 Man Diff? Auto Invalid Interpretation Code [facility] Comment on above: Order Comment: Patie nt is a hard stick. 3 Nurses have tried to do an IV. I am waiting to see if they get the IV started. 03/17/2023 22:08:47 EDT Performed By: #### 7 [id number], [id number], [id number], [id number], [id number], [id number] ####[facility] (DEFAULT)[address] [place] [address]649 MCH (RBC) [Entitic mass] 25 pg Normal 24-34 [facility] Comment on above: Order Comment: Patie nt is a hard stick. 3 Nurses have tried to do an IV. I am waiting to see if they get the IV started. 03/17/2023 22:08:47 EDT Performed By: #### 7 [id number], [id number], [id number], [id number], [id number], [id number] ####[facility] (DEFAULT)[address] [place] [address]458 MCHC (RBC) [Mass/Vol] 31 g/dL Normal 26-37 [facility] Comment on above: Order Comment: Patie nt is a hard stick. 3 Nurses have tried to do an IV. I am waiting to see if they get the IV started. 03/17/2023 22:08:47 EDT Performed By: #### 7 [id number], [id number], [id number], [id number], [id number], [id number] ####[facility] (DEFAULT)[address] [place] [address]62 MCV (RBC) [Entitic vol] 81 fL Normal 81-100 [facility] Comment on above: Order Comment: Patie nt is a hard stick. 3 Nurses have tried to do an IV. I am waiting to see if they get the IV started. 03/17/2023 22:08:47 EDT Performed By: #### 7 [id number], [id number], [id number], [id number], [id number], [id number] ####[facility] (DEFAULT)[address] [place] [address] 10928 Platelet 381 x10 Normal 138-427 [facility] Comment on above: Order Comment: Patie nt is a hard stick. 3 Nurses have tried to do an IV. I am waiting to see if they get the IV started. 03/17/2023 22:08:47 EDT Performed By: #### 7 [id number], [id number], [id number], [id number], [id number], [id number] ####[facility] (DEFAULT)[address] [place] [address] 85856 Platelet mean volume (Bld) [Entitic vol] 8.3 fL Normal 6.3-10.2 [facility] Comment on above: Order Comment: Patie nt is a hard stick. 3 Nurses have tried to do an IV. I am waiting to see if they get the IV started. 03/17/2023 22:08:47 EDT Performed By: #### 7 [id number], [id number], [id number], [id number], [id number], [id number] ####[facility] (DEFAULT)[address] [place] [address] 81044 RBC 5.80 x10 High 3.70-5.30 [facility] Comment on above: Order Comment: Patie nt is a hard stick. 3 Nurses have tried to do an IV. I am waiting to see if they get the IV started. 03/17/2023 22:08:47 EDT Performed By: #### 7 [id number], [id number], [id number], [id number], [id number], [id number] ####[facility] (DEFAULT)[address] [place] [address]159 WBC 22.0 x10 High 3.5-10.5 [facility] Comment on above: Order Comment: Patie nt is a hard stick. 3 Nurses have tried to do an IV. I am waiting to see if they get the IV started. 03/17/2023 22:08:47 EDT Result Comment: Slid e Reviewed Performed By: #### 7 [id number], [id number], [id number], [id number], [id number], [id number] ####[facility] (DEFAULT)[address] [place] [address] CBC with Diffon 03-18-2023 Abs. Basophil 0.03 k/uL Normal 0.00-0.20 [facility] Comment on above: Performed By: #### H EPXA, TROPI, CDP, BMP #### [facility] [address] [place] [address] Director Veterinary: Norman Blake MD Abs.Imm.Granulocyte 0.11 k/uL Normal 0.00-0.30 [facility] Comment on above: Performed By: #### H EPXA, TROPI, CDP, BMP #### [facility] [address] [place] [address] Director Veterinary: Norman Blake MD Abs.Neutrophil (Seg) 16.38 k/uL High 1.50-8.10 [facility] Comment on above: Performed By: #### H EPXA, TROPI, CDP, BMP #### [facility] [address] [place] [address] Director Veterinary: Norman Blake MD Basophils/100 WBC (Bld) 0 % Normal 0-2 [facility] Comment on above: Performed By: #### H EPXA, TROPI, CDP, BMP #### [facility] [address] [place] [address] Director Veterinary: Norman Blake MD Eosinophils (Bld) [#/Vol] 0.06 10*3/uL Normal 0.00-0.44 [facility] Comment on above: Performed By: #### H EPXA, TROPI, CDP, BMP #### [address] [address] Director Veterinary: Norman Blake MD Eosinophils/100 WBC (Bld) 0 % Low 1-4 [facility] Comment on above: Performed By: #### H EPXA, TROPI, CDP, BMP #### [facility] [address] [place] [address] Director Veterinary: Norman Blake MD Erythrocyte distribution width (RBC) [Ratio] 13.9 % Normal 11.8-14.4 [facility] Comment on above: Performed By: #### H EPXA, TROPI, CDP, BMP #### [facility] [address] [place] [address] Director Veterinary: Norman Blake MD Hematocrit (Bld) [Volume fraction] 36.6 % Normal 36.3-47.1 [facility] Comment on above: Performed By: #### H EPXA, TROPI, CDP, BMP #### [facility] [address] [place] [address] Director Veterinary: Norman Blake MD Hemoglobin (Bld) [Mass/Vol] 11.8 g/dL Low 11.9-15.1 [facility] Comment on above: Performed By: #### H EPXA, TROPI, CDP, BMP #### [facility] [address] [place] [address] Director Veterinary: Norman Blake MD Immature granulocytes/100 WBC (Bld) 1 % High 0 [facility] Comment on above: Performed By: #### H EPXA, TROPI, CDP, BMP #### [address] [address] Director Veterinary: Norman Blake MD Lymphocytes (Bld) [#/Vol] 2.92 10*3/uL Normal 1.10-3.70 [facility] Comment on above: Performed By: #### H EPXA, TROPI, CDP, BMP #### [address] [address] Director Veterinary: Norman Blake MD Lymphocytes/100 WBC (Bld) 14 % Low 24-43 [facility] Comment on above: Performed By: #### H EPXA, TROPI, CDP, BMP #### [address] [address] Director Veterinary: Norman Blake MD MCH (RBC) [Entitic mass] 25.4 pg Normal 25.2-33.5 [facility] Comment on above: Performed By: #### H EPXA, TROPI, CDP, BMP #### [address] [address] Director Veterinary: Norman Blake MD MCHC (RBC) [Mass/Vol] 32.2 g/dL Normal 28.4-34.8 [facility] Comment on above: Performed By: #### H EPXA, TROPI, CDP, BMP #### [address] [address] Director Veterinary: Norman Blake MD MCV (RBC) [Entitic vol] 78.7 fL Low 82.6-102.9 [facility] Comment on above: Performed By: #### H EPXA, TROPI, CDP, BMP #### [address] [address] Director Veterinary: Norman Blake MD Monocytes (Bld) [#/Vol] 0.92 10*3/uL Normal 0.10-1.20 [facility] Comment on above: Performed By: #### H EPXA, TROPI, CDP, BMP #### [address] [address] Director Veterinary: Norman Blake MD Monocytes/100 WBC (Bld) 5 % Normal 3-12 [facility] Comment on above: Performed By: #### H EPXA, TROPI, CDP, BMP #### [address] [address] Director Veterinary: Normna Blake MD Neutrophil (Seg) 80 % High 36-65 [facility] Comment on above: Performed By: #### H EPXA, TROPI, CDP, BMP #### [address] [address] Director Veterinary: Norman Blake MD NRBC Automated 0.0 per 100 WBC Normal 0.0 [facility] Comment on above: Performed By: #### H EPXA, TROPI, CDP, BMP #### [address] [address] Director Veterinary: Norman Blake MD Platelet mean volume (Bld) [Entitic vol] 9.6 fL Normal 8.1-13.5 [facility] Comment on above: Performed By: #### H EPXA, TROPI, CDP, BMP #### [address] [address] Director Veterinary: Norman Blake MD Platelets (Bld) [#/Vol] 264 10*3/uL Normal 138-453 [facility] Comment on above: Performed By: #### H EPXA, TROPI, CDP, BMP #### [address] [address] Director Veterinary: Norman Blake MD RBC (Bld) [#/Vol] 4.65 10*6/uL Normal 3.95-5.11 [facility] Comment on above: Performed By: #### H EPXA, TROPI, CDP, BMP #### [facility] [address] [place] [address] Director Veterinary: Norman Blake MD RBC morphology finding Nom (Bld) MICROCYTOSIS PRESENT Normal [facility] Comment on above: Performed By: #### H EPXA, TROPI, CDP, BMP #### [facility] [address] [place] [address] Director Veterinary: Norman Blake MD WBC (Bld) [#/Vol] 20.4 10*3/uL High 3.5-11.3 [facility] Comment on above: Performed By: #### H EPXA, TROPI, CDP, BMP #### [facility] [address] [place] [address] Director Veterinary: Norman Blake MD CMP Standardon 03-18-2023 Anion Gap see comment Invalid Interpretation Code 5.0-19.0 [facility] Comment on above: Result Comment: Unab le to calculate Performed By: #### 5 [id number], [id number], [id number] ####[facility] (DEFAULT)[address] [place] [address] Breakpoint Chem Normal [facility] Comment on above: Performed By: #### 5 [id number], [id number], [id number] ####[facility] (DEFAULT)[address] [place] [address] eGFR Non AA >60 Invalid Interpretation Code [facility] Comment on above: Performed By: #### 5 [id number], [id number], [id number] ####[facility] (DEFAULT)[address] [place] [address]27 eGFR AA >60 Invalid Interpretation Code [facility] Comment on above: Performed By: #### 5 [id number], [id number], [id number] ####[facility] (DEFAULT)[address] [place] [address] Albumin [Mass/Vol] 3.8 g/dL Normal 3.5-5.0 [facility] Comment on above: Performed By: #### 5 [id number], [id number], [id number] ####[facility] (DEFAULT)[address] [place] [address] Albumin/Globulin [Mass ratio] 1.1 {ratio} Low 1.4-2.6 [facility] Comment on above: Performed By: #### 5 [id number], [id number], [id number] ####[facility] (DEFAULT)[address] [place] [address]00 Alk Phos 84 IU/L Normal 32-91 [facility] Comment on above: Performed By: #### 5 [id number], [id number], [id number] ####[facility] (DEFAULT)[address] [place] [address] 19448 ALT [Catalytic activity/Vol] 20.0 U/L Normal 14.0-54.0 [facility] Comment on above: Performed By: #### 5 [id number], [id number] ####[facility] (DEFAULT)[address] [place] [address] 28162 AST [Catalytic activity/Vol] 37 U/L Normal 15-41 [facility] Comment on above: Performed By: #### 5 [id number] ####[facility] (DEFAULT)[address] [place] [address] 46472 Bili Total 1.6 mg/dL High 0.3-1.2 [facility] Comment on above: Performed By: #### 5 [id number], [id number], [id number] ####[facility] (DEFAULT)[address] [place] [address] 59463 Calcium [Mass/Vol] 7.2 mg/dL Low 8.9-10.3 [facility] Comment on above: Performed By: #### 5 [id number], [id number] ####[facility] (DEFAULT)[address] [place] [address] 36877 Chloride [Moles/Vol] 104 mmol/L Normal 101-111 [facility] Comment on above: Performed By: #### 5 [id number], [id number], [id number] ####[facility] (DEFAULT)[address] [place] [address] 56303 Creatinine [Mass/Vol] 0.92 mg/dL Normal 0.60-1.30 [facility] Comment on above: Performed By: #### 5 [id number], [id number], [id number] ####[facility] (DEFAULT)[address] [place] [address] 55427 Globulin (S) [Mass/Vol] 3.4 g/dL Normal 1.5-4.3 [facility] Comment on above: Performed By: #### 5 [id number], [id number], [id number] ####[facility] (DEFAULT)[address] [place] [address] 37924 Glucose [Mass/Vol] 419.0 mg/dL High 74.0-118.0 [facility] Comment on above: Performed By: #### 5 [id number], [id number], [id number] ####[facility] (DEFAULT)[address] [place] [address] 21288 Osmolality 275 mOsm/L Invalid Interpretation Code [facility] Comment on above: Performed By: #### 5 [id number], [id number], [id number] ####[facility] (DEFAULT)[address] [place] [address] 19562 Potassium [Moles/Vol] 4.1 mmol/L Normal 3.6-5.1 [facility] Comment on above: Performed By: #### 5 [id number], [id number], [id number] ####[facility] (DEFAULT)[address] [place] [address] 01290 Protein [Mass/Vol] 7.2 g/dL Normal 6.5-8.1 [facility] Comment on above: Performed By: #### 5 [id number], [id number] ####[facility] (DEFAULT)[address] [place] [address] 18570 Sodium [Moles/Vol] 127.0 mmol/L Low 136.0-144.0 [facility] Comment on above: Performed By: #### 5 [id number], [id number], [id number] ####[facility] (DEFAULT)[address] [place] [address] 70494 Urea nitrogen [Mass/Vol] 19 mg/dL Normal 8-26 [facility] Comment on above: Performed By: #### 5 [id number], [id number], [id number] ####[facility] (DEFAULT)[address] [place] [address] 78418 Urea nitrogen/Creatinine [Mass ratio] 20.6 mg/mg High 4.6-16.2 [facility] Comment on above: Performed By: #### 5 [id number], [id number], [id number] ####[facility] (DEFAULT)[address] [place] [address] CO2 [Moles/Vol] mmol/L Low 21-32 [facility] Comment on above: Performed By: #### 5 [id number], [id number], [id number] ####[facility] (DEFAULT)[address] [place] [address] 25240 Breakpoint Chem Normal [facility] Comment on above: Order Comment: Patie nt is a hard stick. 3 Nurses have tried to do an IV. I am waiting to see if they get the IV started. 03/17/2023 22:08:47 EDT Performed By: #### 4 [id number] #### [facility] (DEFAULT) [address] [place] [address] eGFR Non AA >60 Invalid Interpretation Code [facility] Comment on above: Order Comment: Patie nt is a hard stick. 3 Nurses have tried to do an IV. I am waiting to see if they get the IV started. 03/17/2023 22:08:47 EDT Performed By: #### 4 [id number] #### [facility] (DEFAULT) [address] [place] [address] eGFR AA >60 Invalid Interpretation Code [facility] Comment on above: Order Comment: Patie nt is a hard stick. 3 Nurses have tried to do an IV. I am waiting to see if they get the IV started. 03/17/2023 22:08:47 EDT Performed By: #### 4 [id number] #### [facility] (DEFAULT) [address] [place] [address] 03837 Albumin [Mass/Vol] 4.3 g/dL Normal 3.5-5.0 [facility] Comment on above: Order Comment: Patie nt is a hard stick. 3 Nurses have tried to do an IV. I am waiting to see if they get the IV started. 03/17/2023 22:08:47 EDT Performed By: #### 4 [id number] #### [facility] (DEFAULT) [address] [place] [address] 06651 Albumin/Globulin [Mass ratio] 1.1 {ratio} Low 1.4-2.6 [facility] Comment on above: Order Comment: Patie nt is a hard stick. 3 Nurses have tried to do an IV. I am waiting to see if they get the IV started. 03/17/2023 22:08:47 EDT Performed By: #### 4 [id number] #### [facility] (DEFAULT) [address] [place] [address] 31911 Alk Phos 93 IU/L High 32-91 [facility] Comment on above: Order Comment: Patie nt is a hard stick. 3 Nurses have tried to do an IV. I am waiting to see if they get the IV started. 03/17/2023 22:08:47 EDT Performed By: #### 4 [id number] #### [facility] (DEFAULT) [address] [place] [address] 60464 ALT [Catalytic activity/Vol] 21.0 U/L Normal 14.0-54.0 [facility] Comment on above: Order Comment: Patie nt is a hard stick. 3 Nurses have tried to do an IV. I am waiting to see if they get the IV started. 03/17/2023 22:08:47 EDT Performed By: #### 4 [id number] #### [facility] (DEFAULT) [address] [place] [address] 17141 AST [Catalytic activity/Vol] 37 U/L Normal 15-41 [facility] Comment on above: Order Comment: Patie nt is a hard stick. 3 Nurses have tried to do an IV. I am waiting to see if they get the IV started. 03/17/2023 22:08:47 EDT Performed By: #### 4 [id number] #### [facility] (DEFAULT) [address] [place] [address] 80245 Bili Total 1.7 mg/dL High 0.3-1.2 [facility] Comment on above: Order Comment: Patie nt is a hard stick. 3 Nurses have tried to do an IV. I am waiting to see if they get the IV started. 03/17/2023 22:08:47 EDT Performed By: #### 4 [id number] #### [facility] (DEFAULT) [address] [place] [address] 46236 Calcium [Mass/Vol] 7.7 mg/dL Low 8.9-10.3 [facility] Comment on above: Order Comment: Patie nt is a hard stick. 3 Nurses have tried to do an IV. I am waiting to see if they get the IV started. 03/17/2023 22:08:47 EDT Performed By: #### 4 [id number] #### [facility] (DEFAULT) [address] [place] [address] 11890 Chloride [Moles/Vol] 99 mmol/L Low 101-111 [facility] Comment on above: Order Comment: Patie nt is a hard stick. 3 Nurses have tried to do an IV. I am waiting to see if they get the IV started. 03/17/2023 22:08:47 EDT Performed By: #### 4 [id number] #### [facility] (DEFAULT) [address] [place] [address] 28323 Creatinine [Mass/Vol] 1.01 mg/dL Normal 0.60-1.30 [facility] Comment on above: Order Comment: Patie nt is a hard stick. 3 Nurses have tried to do an IV. I am waiting to see if they get the IV started. 03/17/2023 22:08:47 EDT Performed By: #### 4 [id number] #### [facility] (DEFAULT) [address] [place] [address] 34910 Globulin (S) [Mass/Vol] 3.7 g/dL Normal 1.5-4.3 [facility] Comment on above: Order Comment: Patie nt is a hard stick. 3 Nurses have tried to do an IV. I am waiting to see if they get the IV started. 03/17/2023 22:08:47 EDT Performed By: #### 4 [id number] #### [facility] (DEFAULT) [address] [place] [address] 01595 Glucose [Mass/Vol] 455.0 mg/dL High 74.0-118.0 [facility] Comment on above: Order Comment: Patie nt is a hard stick. 3 Nurses have tried to do an IV. I am waiting to see if they get the IV started. 03/17/2023 22:08:47 EDT Performed By: #### 4 [id number] #### [facility] (DEFAULT) [address] [place] [address] 43494 Osmolality 272 mOsm/L Invalid Interpretation Code [facility] Comment on above: Order Comment: Patie nt is a hard stick. 3 Nurses have tried to do an IV. I am waiting to see if they get the IV started. 03/17/2023 22:08:47 EDT Performed By: #### 4 [id number] #### [facility] (DEFAULT) [address] [place] [address] 28600 Protein [Mass/Vol] 8.0 g/dL Normal 6.5-8.1 [facility] Comment on above: Order Comment: Patie nt is a hard stick. 3 Nurses have tried to do an IV. I am waiting to see if they get the IV started. 03/17/2023 22:08:47 EDT Performed By: #### 4 [id number] #### [facility] (DEFAULT) [address] [place] [address] 26128 Sodium [Moles/Vol] 125.0 mmol/L Low 136.0-144.0 [facility] Comment on above: Order Comment: Patie nt is a hard stick. 3 Nurses have tried to do an IV. I am waiting to see if they get the IV started. 03/17/2023 22:08:47 EDT Performed By: #### 4 [id number] #### [facility] (DEFAULT) [address] [place] [address] 97953 Urea nitrogen [Mass/Vol] 16 mg/dL Normal 8-26 [facility] Comment on above: Order Comment: Patie nt is a hard stick. 3 Nurses have tried to do an IV. I am waiting to see if they get the IV started. 03/17/2023 22:08:47 EDT Performed By: #### 4 [id number] #### [facility] (DEFAULT) [address] [place] [address] 81764 Urea nitrogen/Creatinine [Mass ratio] 15.8 mg/mg Normal 4.6-16.2 [facility] Comment on above: Order Comment: Patie nt is a hard stick. 3 Nurses have tried to do an IV. I am waiting to see if they get the IV started. 03/17/2023 22:08:47 EDT Performed By: #### 4 [id number] #### [facility] (DEFAULT) [address] [place] [address] 41558 Potassium [Moles/Vol] 4.6 mmol/L Normal 3.6-5.1 [facility] Comment on above: Order Comment: Patie nt is a hard stick. 3 Nurses have tried to do an IV. I am waiting to see if they get the IV started. 03/17/2023 22:08:47 EDT Result Comment: Delt a check reviewed with RN Performed By: #### 4 [id number] #### [facility] (DEFAULT) [address] [place] [address] 86310 CO2 [Moles/Vol] mmol/L Low 21-32 [facility] Comment on above: Order Comment: Patie nt is a hard stick. 3 Nurses have tried to do an IV. I am waiting to see if they get the IV started. 03/17/2023 22:08:47 EDT Result Comment: Resu lts Verified by Repeat Analysis Performed By: #### 4 [id number] #### [facility] (DEFAULT) [address] [place] [address] CHEST PULMONARY EMBOLISM W CONTRASTon 09-19-2023 CT CHEST PULMONARY EMBOLISM W CONTRAST ADDENDUM: As stated in the FINDINGS section of the report there is diffuse esophageal thickening with some luminal narrowing likely esophagitis. Clinical correlation and GI consult suggested. Electronically Signed by: BENTON IRAHETA on FriMar 18, 2023 8:49:24 AM EDT EXAMINATION: CTA OF THE CHEST 03/18/2023 6:40 am TECHNIQUE: CTA of the chest was performed after the administration of intravenous contrast. Multiplanar reformatted images are provided for review. MIP images are provided for review. Automated exposure control, iterative reconstruction, and/or weight based adjustment of the mA/kV was utilized to reduce the radiation dose to as low as reasonably achievable. COMPARISON: None. HISTORY: ORDERING SYSTEM PROVIDED HISTORY: r/o pe, elevated dimer, covid, tachy TECHNOLOGIST PROVIDED HISTORY: r/o pe, elevated dimer, covid, tachy Relevant Medical/Surgical History: iv questionable contrast leaked around iv site FINDINGS: Pulmonary Arteries: Poor contrast bolus timing. Very poorly enhancing pulmonary arteries at time of scanning. Cannot confirm or exclude acute pulmonary emboli. Nondiagnostic for acute pulmonary embolism Mediastinum: Cardiac size normal. No pericardial effusion. Calcified subcarinal lymph nodes likely from granulomatous disease. Diffusely thickened esophagus with luminal narrowing. Likely esophagitis. Please correlate clinically. GI consult may be indicated. Lungs/pleura: There are scattered irregular-shaped but airspace densities up to about 2 cm in size along the lung periphery and also the right major fissure. More pronounced on the right. Compatible with pneumonia. Appearance can be seen in setting of COVID pneumonia. No pleural effusion. No pneumothorax. Upper Abdomen: Limited images of the upper abdomen are unremarkable. Soft Tissues/Bones: No acute abnormality of the bones. The superficial soft tissues show no acute process. IMPRESSION: 1. Poor contrast bolus timing. Nondiagnostic for acute pulmonary embolism the last as discussed above. If there remains clinical concern for acute pulmonary embolism, this study may be repeated. 2. Scattered irregular ground-glass airspace densities along the lung periphery and right major fissure more pronounced on the right. Appearance quite typical for the provided history of COVID pneumonia although other infectious processes, drug toxicity and connective tissue disease can have a similar appearance. Interpreted by: Benton Iraheta MD Signed by: Benton Iraheta MD 03/18/23 Edited Result - FINAL Normal [facility] Calcium, Ionicon 03-18-2023 Calcium [Moles/Vol] 1.18 mmol/L Normal 1.13-1.33 [facility] Comment on above: Performed By: #### Jam RODAS IOCAL #### [facility] [address] [place], [place] [id number] Director Veterinary: Norman Blake MD D-Dimer Teston 03-18-2023 D-Dimer Test 0.60 ug/mL FEU High 0.00-0.57 [facility] Comment on above: Result Comment: When combined with a low clinical probability, a D dimer value of <0.50 ug/mL FEU is considered negative for DVT and PE (negative predictive value of 98%, sensitivity of 97%). If this test is not being used to help rule out DVT and PE, then the following reference range should be utilized: 0.00 - 0.57 ug/mL FEU. The D-Dimer assay is intended for use as an aid in the diagnosis of venous thromboembolism (DVT and PE) and the results should be interpreted in conjunction with the patient's medical history, clinical presentation, and other findings. Elevated levels of D-dimer activity can be seen in any state of coagulation activation and is not recommended in patients with therapeutic dose anticoagulant therapy for >24 hours, fibrinolytic therapy within the previous 7 days, trauma or surgery within the previous 4 weeks, disseminated malignancies, aortic aneurysm, sepsis, severe infections, pneumonia, severe skin infections, liver cirrhosis, advanced age, coronary disease, diabetes, and . A very low percentage of patients with DVT may yield D-dimer results below the cutoff of 0.5 ug/mL FEU. This is known to be more prevalent in patients with distal DVT. Performed By: #### Jam RODAS IOCAL #### [facility] [address] [place], [place] [id number] Director Veterinary: Norman Blake MD ED Clinical Summaryon 2022 ED Clinical Summary [facility] Emergency Department [address] [place] [address]52 ED Clinical Summary PERSON INFORMATION Name: TASHA, ALLEX N Age: 27 Years Sex: FEMALE : 1995 MRN: Acct#: Visit Reason: Chest pain; SOB, CHEST PAIN Arrival: 03/17/2023 20:58:55 Discharge: 03/18/2023 03:03:00 LOS: 000 06:05 Check In: 03/17/2023 20:58:55 Checkout:03/18/2023 03:03:00 Address: [address] [facility] [address] PCP: ARCADIO IGLESIAS PROVIDER INFORMATION Provider Role Assigned Unassigned Hollie WOLFF, Sharon Weinstein ED Nurse 03/17/2023 21:05:38 Linn Johnson DO ED Provider 03/17/2023 21:06:36 VITALS INFORMATION Vital Sign Triage Latest Temperature Tympanic Temperature Temporal Artery 36.8 DegC Pulse Rate 98 bpm 102 bpm O2 Sat 96 % 100 % Respiratory Rate 20 br/min 19 br/min Blood Pressure /113 mmHg /113 mmHg MEDICAL INFORMATION Medications Given: Medication Dose Route ketorolac 30 mg IV Push LORazepam (Ativan injection) 1 mg IV Push Sodium Chloride 0.9% intravenous solution 1,000 mL 1000 mL Initial Volume 1000 mL/hr IV Left Wrist Sodium Chloride 0.9% intravenous solution 1,000 mL 1000 mL Initial Volume 1000 mL/hr IV Left Wrist Sodium Chloride 0.9% intravenous solution 1,000 mL 1000 mL 1000 mL Initial Volume 1000 mL/hr IV Left Wrist Sodium Chloride 0.9% intravenous solution 1,000 mL + sodium bicarbonate 50 mEq (Sodium Chloride 0.9% intravenous solution 1,000 mL + sodium bicarbonate 8.4% IV solution 50 mEq) 1000 mL Initial Volume 50 mL/hr IV Left Wrist Sodium Chloride 0.9% intravenous solution 1,000 mL + sodium bicarbonate 50 mEq (Sodium Chloride 0.9% intravenous solution 1,000 mL + sodium bicarbonate 8.4% IV solution 50 mEq) 1000 mL Initial Volume 50 mL/hr IV Left Wrist insulin regular 15 unit(s) IV Push Sodium Chloride 0.9% intravenous solution 1,000 mL 1000 mL Initial Volume 500 mL/hr IV Left Wrist insulin regular 100 unit(s) + Sodium Chloride 0.9% intravenous solution 100 mL (Novolin R additive 100 unit(s) + Sodium Chloride 0.9% intravenous solution 100 mL) 100 mL Initial Volume 3 mL/hr IV Left Wrist insulin regular 100 unit(s) + Sodium Chloride 0.9% intravenous solution 100 mL (Novolin R additive 100 unit(s) + Sodium Chloride 0.9% intravenous solution 100 mL) 100 mL Initial Volume 3 mL/hr IV Left Wrist Allergy Information: shellfish; penicillin PHYSICIAN DOCUMENTATION Patient: DOUGLAS CORDOVA Age: 27 years Sex: FEMALE : 1995 Associated Diagnoses: Anxiety; COVID-19; DKA (diabetic ketoacidosis) Author: Linn Johnson DO Basic Information Time seen: Date & time 03/17/2023 21:07:00. History source: Patient. Arrival mode: Private vehicle, walking. History limitation: None. History of Present Illness The patient presents with This patient presents to the emergency room for evaluation of chest pain, which started couple days ago. Worse to breathe, no medication was taken for this, she walked here to the emergency room tonight. Because it was worse. She was in the hospital, 16 March, with vomiting but signed out AMA,, when she had a disagreement with oral intake on the floor of the hospital. She was admitted for DKA, her insulin in her pump had run out for couple days. She states she has been in diabetic for her entire life. She states she does not have a history of cardiac disease, she has never had a heart catheterization before, she does not have a history of blood clots, she denies abdominal surgeries no recent surgeries, she states she does not smoke; She denies any srini abdominal pain, she states she has not been vomiting since he left the hospital on the , she has had diarrhea. She was around one little boy who had COVID. She was diagnosed with COVID here on 16 March. Her mother has a history of diabetes Physical exam pleasant, good eye contact, precise speech, pupils 3.5 mm justin, somewhat sleepy, arousable gives accurate information, and with treatment--decreasin g rate of ventilation, improving; Mouth dry, neck supple, no jvd at 0 degrees, no a/p/supraclavicular nodes, lungs cta, ventilates bilat well, increased rate (hyperventilating), abd soft, not overweight, non-tender, skin turgor decreased, neuro symmetric, it took some time to find an iv; . Health Status Allergies: Allergic Reactions (Selected) Unknown Penicillin- No reactions were documented. Shellfish- No reactions were documented. . Medications: (Selected) Inpatient Medications Ordered Sodium Chloride 0.9% intravenous solution 1,000 mL: 1,000 mL/hr, IV Documented Medications Documented HumaLOG 100 units/mL injectable solution: 0 Refill(s) [facility] DASH PODS (GEN 4) 5PK: See instructions, change q 72 hours, 0 Refill(s) amphetamine-dextroam phetamine 30 mg oral capsule, extended release: 30 mg = 1 cap(s), PO, Daily, 0 Refill(s) carisoprodol 350 mg oral tablet: 350 mg = 1 tab(s), PO, TID, 0 Refill(s) clif (more content not included)... [facility] ED Note - Otheron 03-18-2023 ED Note - Other paging Director Of Human Resources through [facility] for transfer [Electronically Signed on: 03/18/2023 00:54 EDT] Usha Angel [Verified on: 03/18/2023 00:54 EDT] Usha Angel Director Of Human Resources called back from [facility], Dr. Valdes retuned call, on phone with Dr. [phone] [Electronically Signed on: 03/18/2023 01:00 EDT] Usha Angel [facility] ED Patient Education Noteon 03-18-2023 ED Patient Education Note Education Materials [facility] ED Patient Summaryon 023 ED Patient Summary [facility] - Emergency Department [address] [place] [address] PATIENT DISCHARGE INSTRUCTIONS Patient Information Name: DOUGLAS CORDOVA Age: 27 Years Date of : [address] [facility]: [id number] Reason For Visit: Chest pain; SOB, CHEST PAIN Arrival Time: 03/17/2023 20:58:55 Primary Care Physician: ARCADIO IGLESIAS Attending Physician: Linn Johnson DO Comment: Visit Diagnosis: Diagnoses This Visit Anxiety (F41.9) Chest pain ([id number]) COVID-19 (U07.1) DKA (diabetic ketoacidosis) (E11.10) The Pharmacy at [facility] is open Friday through Friday from 9A to 6P and Friday and Friday from 9A to 5P Prescription Information: If you have been given a prescription for narcotics, seek immediate medical attention if you have any difficulty breathing or any sudden status changes such as confusion and sleepiness. If you or anyone you know is experiencing suicidal thoughts, mental health, alcohol and/or drug addiction problems; contact the [facility] 20/01 Crisis Hotline -text 4hope to [phone]. If you received any narcotics, sedation, or any other medication that causes drowsiness for the next 24 hours, unless otherwise directed: ? Do not drive a car. ? Do not operate machinery such as power tools, lawn mowers, drills, sewing machines, or stoves ? Avoid alcoholic beverages and drugs for allergies, nerves, or sleep ? Do not make important personal or business decisions or sign any legal documents Medication Information: The exam and treatment you received today in the [facility] Emergency Department were for an urgent problem and are not intended as complete care. It is important for you to follow up with a doctor, nurse practitioner, or physician?s assistant press operator for ongoing care. If your symptoms become worse or you do not improve as expected and you are unable to reach your usual health care provider, you should return to the Emergency Department, we are available 24 hours a day. For those patients who have received Radiology results, the interpretation of your X-ray as given to you by our Emergency Department physician is only a preliminary report. The Radiologist will review your films and if there is a change in the diagnosis you will be notified by phone. Please make sure you have provided a working phone number so we can reach you if necessary. In the event that you had a lab culture while you were a patient in the Emergency Department, you will be notified by phone if there is a need to change your antibiotic. Please make sure you have provided a working phone number so we can reach you if necessary. [facility] Emergency Department has provided you with a complete list of medications post discharge. Please inform your ribbon blockmaker/provider of your visit and for further instruction on these medications. Any specific questions regarding your chronic medications and dosages should be discussed with your primary care physician(s) and/or pharmacist. Medications to Continue That Have Not Changed Other Medications amphetamine-dextroam phetamine (amphetamine-dextroa mphetamine 30 mg oral capsule, extended release) 1 cap(s) Oral every day. carisoprodol (carisoprodol 350 mg oral tablet) 1 tab(s) Oral 3 times a day. Durable Medical Equipment for Prescription ([facility] DASH PODS (GEN 4) 5PK) change q 72 hours. gabapentin (gabapentin 800 mg oral tablet) 1 tab(s) Oral 3 times a day. insulin lispro (HumaLOG 100 units/mL injectable solution) tiZANidine (tiZANidine 4 mg oral tablet) 1 tab(s) Oral 3 times a day. Visit Information Allergies: Substance Reaction Symptoms Type Comments penicillin Drug shellfish Food Vital Signs: Vitals and Measurements this Visit (last charted value for your 03/17/2023 visit) Vital Signs This Visit Temperature Temporal Artery: 36.8 DegC Peripheral Pulse Rate: 102 bpm Heart Rate Monitored: 98 bpm Respiratory Rate: 19 br/min Systolic Blood Pressure: 117 mmHg Diastolic Blood Pressure: 89 mmHg Mean Arterial Pressure, Cuff-Calculation: 98 mmHg Mean Arterial Pressure Cuff-Monitor: 102 mmHg SpO2: 100 % Oxygen Therapy: Room air Measurements This Visit Height/Length Dosin.720 cm Height/Length Estimated: 172.720 cm Weight Dosin.500 kg Weight Estimated: 63.500 kg Problems List: Problem Onset Comments Disease caused by 2019 novel coronavirus 03/16/23 Problem added by Rule (IC_COVID19_MAGR_PRO BLEM) following SARS-CoV-2 (COVID-19)/Flu/RSV (GeneXpert) from Nasopharyngeal Swab collected on 16-MAR-2023 09:34:00 EDT tested positive for COVID-19. Patient Education Viruses or Bacteria What?s got you sick? Antibiotics only treat bacterial infections. Viral illnesses cannot be treated with antibiotics. When an antibiotic is not prescribed, ask your healthcare professional for tips on how to relieve symptoms and feel better. Usual (more content not included)... Normal [facility] Ethanol.on 03-18-2023 Ethanol Level <5.0 Normal 0.0-5.0 [facility] Comment on above: Order Comment: Patie nt is a hard stick. 3 Nurses have tried to do an IV. I am waiting to see if they get the IV started. 03/17/2023 22:08:47 EDTThe nurses have called Nora Bliss RN to see if she could come and start an IV. I am trying to wait for them to get an IV to see if they can get blood or see if they get blood. 03/17/2023 22:18:48 EDT Performed By: #### 4 [id number] #### [facility] (DEFAULT) [address] [place] [address] Hemoglobin A1Con 03-18-2023 Glucose [Mass/Vol] 369 mg/dL Normal [facility] Comment on above: Result Comment: The ADA and AACC recommend providing the estimated average glucose result to permit better patient understanding of their HBA1c result. Performed By: #### H EPXA TROPI, CDP, BMP #### [facility] [address] [place] [address] [phone] Director Veterinary: Norman Blake MD HbA1c (Bld) [Mass fraction] 14.5 % High 4.0-6.0 [facility] Comment on above: Performed By: #### H EPXA TROPI CDP, BMP #### [facility] [address] [place] [address] [phone] Director Veterinary: Norman Blake MD Heparin Anti-Xaon 03-18-2023 Heparin Anti-Xa <0.10 Normal [facility] Comment on above: Performed By: #### Jam RODAS, IOCAL #### [facility] [address] [place] [address] Director Veterinary: Norman Blake MD Heparin Anti-Xa <0.10 Normal [facility] Comment on above: Performed By: #### R EJEC, HEPXA #### [facility] [address] [place] [address] Director Veterinary: Norman Blake MD Heparin Anti-Xa <0.10 Normal [facility] Comment on above: Performed By: #### R EJEC, HEPXA #### [facility] [address] [place] [address] Director Veterinary: Norman Blake MD Ketone Serumon 03-18-2023 Ketone Serum Small Normal Negative [facility] Comment on above: Performed By: #### 6 [id number] ####[facility] (DEFAULT)[address] [place] [address] MRSA, DNA, Nasalon 3 Specimen Description .NASAL SWAB Normal [facility] Comment on above: Performed By: #### Jam RODAS IOCAL #### [facility] [address] [place] [address] Director Veterinary: Norman Blake MD Magnesiumon 03-18-2023 Magnesium [Mass/Vol] 1.9 mg/dL Normal 1.6-2.6 [facility] Comment on above: Performed By: #### Jam RODAS, IOCAL #### [facility] [address] [place] [address] Director Veterinary: Norman Blake MD Magnesium [Mass/Vol] 2.2 mg/dL Normal 1.6-2.6 [facility] Comment on above: Performed By: #### R EJEC, HEPXA #### [facility] [address] [place] [address] Director Veterinary: Norman Blake MD Magnesium [Mass/Vol] 2.2 mg/dL Normal 1.6-2.6 [facility] Comment on above: Performed By: #### R YURI, HEPXA #### [facility] [address] [place] [address] [phone] Director Veterinary: Norman Blake MD Magnesium [Mass/Vol] 1.6 mg/dL Normal 1.6-2.6 [facility] Comment on above: Performed By: #### D CLARK IOCAL #### [facility] [address] [place] [address] [phone] Director Veterinary: Norman Blake MD Myoglobinon 03-18-2023 Myoglobin [Mass/Vol] 288.6 ng/mL High 14.3-65.8 [facility] Comment on above: Performed By: #### 5 [id number], [id number] ####[facility] (DEFAULT)[address] [place] [address] PTon 03-18-2023 INR Coag (PPP) [Relative time] 1.1 {INR} Normal [facility] Comment on above: Result Comment: Therapeutic Range: Moderate Anticoagulant Intensity: INR = 2.0-3.0 High Anticoagulant Intensity: INR = 2.5-3.5 Performed By: #### Jose WELCH, HEPXA #### [facility] [address] [place] [address] [phone] Director Veterinary: Norman Blake MD PT Coag (PPP) [Time] 14.1 s Normal 11.7-14.9 [facility] Comment on above: Performed By: #### R EJANNA, HEPXA #### [facility] [address] [place] [address] [phone] Director Veterinary: Norman Blake MD Phosphorus, Inorg.on 023 Phosphorus, Inorg. 0.4 mg/dL Critically low 2.6-4.5 [facility] Comment on above: Performed By: #### D CLARK, IOCAL #### [facility] [address] [place] [address] Director Veterinary: Norman Blake MD Phosphorus, Inorg. 0.4 mg/dL Critically low 2.6-4.5 [facility] Comment on above: Result Comment: TEST CONFIRMED Performed By: #### R EJEC, HEPXA #### [facility] [address] [place] [address] Director Veterinary: Norman Blake MD Phosphorus, Inorg. 0.9 mg/dL Critically low 2.6-4.5 [facility] Comment on above: Performed By: #### D CLARK, IOCAL #### [facility] [address] [place] [address] Director Veterinary: Norman Blake MD Phosphorus, Inorg. 1.2 mg/dL Low 2.6-4.5 [facility] Comment on above: Performed By: #### H EPXA, TROPI, CDP, BMP #### [facility] [address] [place] [address] Director Veterinary: Norman Blake MD Test Serum 1 Preg Serum Internal Control OK [facility] Comment on above: Order Comment: Patie nt is a hard stick. 3 Nurses have tried to do an IV. I am waiting to see if they get the IV started. 03/17/2023 22:08:47 EDT Performed By: #### 7 [id number], [id number], [id number], [id number], [id number], [id number] ####[facility] (DEFAULT)[address] [place] [address] Test Serum Qual Negative [facility] Comment on above: Order Comment: Patie nt is a hard stick. 3 Nurses have tried to do an IV. I am waiting to see if they get the IV started. 03/17/2023 22:08:47 EDT Performed By: #### 7 [id number], [id number], [id number], [id number], [id number], [id number] ####[facility] (DEFAULT)[address] [place] [address] Salicylateon 03-18-2023 Salicylate Lvl <4.0 Normal 0.0-30.0 [facility] Comment on above: Performed By: #### 4 [id number] #### [facility] (DEFAULT) [address] [place] [address] Specimen Rejectionon 023 Reason for rejection Unable to perform testing: Specimen contaminated. Normal [facility] Comment on above: Performed By: #### R EJEC, HEPXA #### [facility] [address] [place] [address] [phone] Director Veterinary: Norman Blake MD Source of sample .BLOOD Normal [facility] Comment on above: Performed By: #### R EJEC, HEPXA #### [facility] [address] [place] [address] [phone] Director Veterinary: Norman Blake MD Test ordered TROPI MG AUDRA BMP Normal [facility] Comment on above: Performed By: #### R EJEC, HEPXA #### [address] [address] Director Veterinary: Norman Blake MD TnI HSon 03-18-2023 Troponin I High Sensitivity 5176.9 pg/mL Critically abnormal <=15.0 [facility] Comment on above: Result Comment: Crit ical result TNIHS 5176.9 pg/mL called to and read back by Nora Bliss RN at 18-Mar-2023 01:30 by [email or web address]_[email or web address]. Performed By: #### 5 [id number], [id number], [id number] ####[facility] (DEFAULT)[address] [place] [address] Troponin I High Sensitivity 3869.7 pg/mL Critically abnormal <=15.0 [facility] Comment on above: Order Comment: Patie nt is a hard stick. 3 Nurses have tried to do an IV. I am waiting to see if they get the IV started. CJ 03/17/2023 22:08:47 EDT Result Comment: Crit ical result TNIHS 3869.7 pg/mL called to and read back by Nora Bliss RN in ER at 17-Mar-2023 23:51 by Isaiah. Performed By: #### 4 [id number] #### [facility] (DEFAULT) [address] [place] [address] Transfer Noteon 03-18-2023 Transfer Note Rm assignment [facility] 3008 bed 1 report # [id number] [Electronically Signed on: 03/18/2023 02:25 EDT] Usha Angel [Verified on: 03/18/2023 02:25 EDT] StanleyUsha berry [facility] Transfer Note Complete ED chart sent with patient. CD and med list sent w. patient to Hospital, [facility] [Electronically Signed on: 03/18/2023 01:47 EDT] Usha Angel [Verified on: 03/18/2023 01:47 EDT] Usha Angel [facility] Transfer Note [id number] [facility] [id number] [facility], Spoke to Diane and she stated that they are unable to take patient do to her being in DKA. Will try other transport. [Electronically Signed on: 03/18/2023 01:11 EDT] Karena Angelah [Verified on: 03/18/2023 01:11 EDT] Stanley Usha Called and spoke to [facility] @ 0119 [Electronically Signed on: 03/18/2023 01:19 EDT] Stanley [facility] Transfer Note Contacted transfer line through [facility], [facility] [Electronically Signed on: 03/18/2023 00:21 EDT] Usha Angel [Verified on: 03/18/2023 00:21 EDT] Usha Angel Director Of Human Resources called back from [facility], on the phone with Dr. Johnson 0031 [Electronically Signed on: 03/18/2023 00:32 EDT] Stanley [facility] Triage Panel 12on 03-18-2023 Triage Internal Control Pass [facility] Comment on above: Performed By: #### 6 [id number], [id number], [id number], [id number] ####[facility] (DEFAULT)[address] [place] [address] 98183 U Amph Scr Negative Normal [facility] Comment on above: Performed By: #### 6 [id number], [id number], [id number], [id number] ####[facility] (DEFAULT)[address] [place] [address] 38469 U Landy Scr Negative Normal [facility] Comment on above: Performed By: #### 6 676469, [id number], [id number], [id number] ####[facility] (DEFAULT)[address] [place] [address] 89444 U Benzodia Scr Negative Normal [facility] Comment on above: Performed By: #### 6 095452, [id number], [id number], [id number] ####[facility] (DEFAULT)[address] [place] [address] 65197 U Cannab Scrn Negative [facility] Comment on above: Performed By: #### 6 465423, [id number], [id number], [id number] ####[facility] (DEFAULT)[address] [place] [address] 17900 U Cocaine Scr Negative [facility] Comment on above: Performed By: #### 6 119395, [id number], [id number], [id number] ####[facility] (DEFAULT)[address] [place] [address]58[address] U Methadone Scr Negative Normal [facility] Comment on above: Performed By: #### 6 505215, [id number], [id number], [id number] ####[facility] (DEFAULT)[address] [place] [address] 10636 U Methamp Scrn Negative [facility] Comment on above: Performed By: #### 6 054889, [id number], [id number], [id number] ####[facility] (DEFAULT)[address] [place] [address] 50607 U Opiate Scr Negative Normal [facility] Comment on above: Performed By: #### 6 586515, [id number], [id number], [id number] ####[facility] (DEFAULT)[address] [place] [address] U Oxycod Scr Negative Normal [facility] Comment on above: Performed By: #### 6 565495, [id number], [id number], [id number] ####[facility] (DEFAULT)[address] [place] [address] U Phencyclidine Scr Negative Normal [facility] Comment on above: Performed By: #### 6 887348, [id number], [id number], [id number] ####[facility] (DEFAULT)[address] [place] [address] 07028 U Propoxyphene Scr Negative Normal [facility] Comment on above: Performed By: #### 6 597522, [id number], [id number], [id number] ####[facility] (DEFAULT)[address] [place] [address] 39695 U Tricyclic Antidepress Scr Negative Normal [facility] Comment on above: Result Comment: Resu lts are to be used only for medical (ie, treatment) purposes only. Positive tests will not be sent out for confirmation. PROFILE?-V MEDTOX Scan? Drugs of Abuse Test System detects drug classes at the following cutoff concentrations: AMP Amphetamine (d-amphetamine): 500 ng/mL BAR Barbituates (Butabital): 200 ng/mL BZO Benzodiazepines (Nordiazepam): 150 ng/mL BUP Buprenorphine (Buprenorphine): 10 ng/mL KRISTINA Cocaine (Benzoylecgonine): 150 ng/mL MAMP Methamphetamine (d-Methamphetamine): 500 ng/mL MTD Methadone (Methadone): 200 ng/mL OPI Opiates (Morphine): 100 ng/mL or 2000 ng/mL OXY Oxycodone (Oxycodone): 100 ng/mL PCP Phencyclidine (Phencyclidine): 25 ng/mL PPX Propoxyphene (Norpropoxyphene): 300 ng/mL THC Cannabinoids (84-hsn-7-carboxy- -THC): 50 ng/mL TCA Tricyclic-Antidepressants (Desipramine): 300 ng/mL Performed By: #### 6 [id number], [id number], [id number], [id number] ####[facility] (DEFAULT)[address] [place] [address] Urine Source Voided Normal [facility] Comment on above: Performed By: #### 6 582265, [id number], [id number], [id number] ####[facility] (DEFAULT)[address] [place] [address] Troponinon 03-18-2023 Troponin, High Sens 851 ng/L Critically high 0-14 [facility] Comment on above: Result Comment: High Sensitivity Troponin values cannot be compared with other Troponin methodologies. Previous Alert Value Reported Performed By: #### D CLARK, IOCAL #### [facility] [address] [place] [address] Director Veterinary: Norman Blake MD Troponin, High Sens 860 ng/L Critically high 0-14 [facility] Comment on above: Result Comment: High Sensitivity Troponin values cannot be compared with other Troponin methodologies. Previous Alert Value Reported Performed By: #### R EJEC, HEPXA #### [facility] [address] [place] [address] 279[address] Director Veterinary: Norman Blake MD Troponin, High Sens 709 ng/L Critically high 0-14 [facility] Comment on above: Result Comment: High Sensitivity Troponin values cannot be compared with other Troponin methodologies. Previous Alert Value Reported Performed By: #### H EPXA, TROPI, CDP, BMP #### [facility] [place] [address] Director Veterinary: Norman Blake MD Troponin, High Sens 700 ng/L Critically high 0-14 [facility] Comment on above: Result Comment: High Sensitivity Troponin values cannot be compared with other Troponin methodologies. Previous Alert Value Reported Performed By: #### D CLARK, IOCAL #### [facility] [address] [place] [address] Director Veterinary: Norman Blake MD Troponin, High Sens 638 ng/L Critically high 0-14 [facility] Comment on above: Result Comment: High Sensitivity Troponin values cannot be compared with other Troponin methodologies. Performed By: #### H EPXA, TROPI, CDP, BMP #### [facility] [address] [place] [address] Director Veterinary: Norman Blake MD UA Shsug1ed 03-18-2023 UA Amorph. 1+ [facility] Comment on above: Order Comment: Urina lysis Microscopic order added on by [employer] Expert Rules system. Performed By: #### 6 928759, [id number], [id number], [id number] ####[facility] (DEFAULT)[address] [place] [address] UA Bacteria 4+ [facility] Comment on above: Order Comment: Urina lysis Microscopic order added on by [employer] Expert Rules system. Performed By: #### 6 938677, [id number], [id number], [id number] ####[facility] (DEFAULT)[address] [place] [address] UA RBC 5-10 [facility] Comment on above: Order Comment: Urina lysis Microscopic order added on by [employer] Expert Rules system. Performed By: #### 6 021986, [id number], [id number], [id number] ####[facility] (DEFAULT)[address] [place] [address] UA Squam Epi Many [facility] Comment on above: Order Comment: Urina lysis Microscopic order added on by [employer] Expert Rules system. Performed By: #### 6 255538, [id number], [id number], [id number] ####[facility] (DEFAULT)[address] [place] [address] UA WBC 0-2 [facility] Comment on above: Order Comment: Urina lysis Microscopic order added on by [employer] Expert Rules system. Performed By: #### 6 917222, [id number], [id number], [id number] ####[facility] (DEFAULT)[address] [place] [address] UA w Culture if Ind Standard on 03-18-2023 Breakpoint UA [facility] Comment on above: Performed By: #### 6 008383, [id number], [id number], [id number] ####[facility] (DEFAULT)[address] [place] [address] Color (U) Yellow [facility] Comment on above: Performed By: #### 6 221479, [id number], [id number], [id number] ####[facility] (DEFAULT)[address] [place] [address] Culture? Indicated Invalid Interpretation Code [facility] Comment on above: Result Comment: Resu lt created by rule GL_MAGR_ADD_UA_CULT Performed By: #### 6 581668, [id number], [id number], [id number] ####[facility] (DEFAULT)[address] [place] [address] Glucose (U) [Mass/Vol] 500 mg/dL Normal [facility] Comment on above: Performed By: #### 6 062559, [id number], [id number], [id number] ####[facility] (DEFAULT)[address] [place] [address] Ketones Ql (U) >=80 [facility] Comment on above: Performed By: #### 6 836989, [id number], [id number], [id number] ####[facility] (DEFAULT)[address] [place] [address] Micro? Indicated Invalid Interpretation Code [facility] Comment on above: Result Comment: Resu lt created by rule GL_MAGR_ADD_UA_MICRO Result created by rule GL_MAGR_ADD_UA_MICRO Performed By: #### 6 209456, [id number], [id number], [id number] ####[facility] (DEFAULT)[address] [place] [address] UA Bilirubin Negative [facility] Comment on above: Performed By: #### 6 278309, [id number], [id number], [id number] ####[facility] (DEFAULT)[address] [place] [address] 29969 UA Blood LARGE Abnormal NEGATIVE [facility] Comment on above: Performed By: #### 6 768590, [id number], [id number], [id number] ####[facility] (DEFAULT)[address] [place] [address] 932[address] UA Clarity SL CLOUDY Abnormal CLEAR [facility] Comment on above: Performed By: #### 6 083724, [id number], [id number], [id number] ####[facility] (DEFAULT)[address] [place] [address] 01684 UA Leuk Est Negative Normal NEGATIVE [facility] Comment on above: Performed By: #### 6 454248, [id number], [id number], [id number] ####[facility] (DEFAULT)[address] [place] [address] 637[address] UA Nitrite Negative Normal NEGATIVE [facility] Comment on above: Performed By: #### 6 116442, [id number], [id number], [id number] ####[facility] (DEFAULT)[address] [place] [address] 40686 UA pH 6.0 Normal 5-8 [facility] Comment on above: Performed By: #### 6 332276, [id number], [id number], [id number] ####[facility] (DEFAULT)[address] [place] [address] 85904 UA Protein 30 Abnormal NEGATIVE [facility] Comment on above: Performed By: #### 6 564384, [id number], [id number], [id number] ####[facility] (DEFAULT)[address] [place] [address] 68057 UA Spec Grav >=1.030 Normal 1.001-1.035 [facility] Comment on above: Performed By: #### 6 530292, [id number], [id number], [id number] ####[facility] (DEFAULT)[address] [place] [address] 13722 UA Urobilinogen 0.2 mg/dL Normal 0.2-1.0 [facility] Comment on above: Performed By: #### 6 976405, [id number], [id number], [id number] ####[facility] (DEFAULT)[address] [place] [address] Urine Source Voided Normal [facility] Comment on above: Performed By: #### 6 560817, [id number], [id number], [id number] ####[facility] (DEFAULT)[address] [place] [address] UA w/Reflex Cultureon 2022 Bilirubin, SemiQt,Ur Negative Normal NEG [facility] Comment on above: Performed By: #### U AX #### [address] [address] Director Veterinary: Norman Blake MD Blood, Urine LARGE Abnormal NEG [facility] Comment on above: Performed By: #### U AX #### [address] [address] Director Veterinary: Norman Blake MD Clarity (U) Cloudy Abnormal CLEAR [facility] Comment on above: Performed By: #### U AX #### [address] [address] Director Veterinary: Norman Blake MD Color (U) Yellow Normal YEL [facility] Comment on above: Performed By: #### U AX #### [address] [address] Director Veterinary: Norman Blake MD Glucose Ql (U) 3+ mg/dL Abnormal NEG [facility] Comment on above: Performed By: #### U AX #### [address] [address] Director Veterinary: Norman Blake MD Ketones Ql (U) LARGE Abnormal NEG [facility] Comment on above: Performed By: #### U AX #### [address] [address] Director Veterinary: Norman Blake MD Leukocyte esterase Test strip Ql (U) Negative Normal NEG [facility] Comment on above: Performed By: #### U AX #### [address] [address] Director Veterinary: Norman Blake MD Nitrite,Ur Negative Normal NEG [facility] Comment on above: Performed By: #### U AX #### [address] [address] Director Veterinary: Norman Blake MD PH,Ur 5.5 Normal 5.0-8.0 [facility] Comment on above: Performed By: #### U AX #### [address] [address] Director Veterinary: Norman Blake MD Protein Ql (U) 2+ mg/dL Abnormal NEG [facility] Comment on above: Performed By: #### U AX #### [address] [address] Director Veterinary: Norman Blake MD Spec. [place],Ur 1.028 Normal 1.005-1.030 [facility] Comment on above: Performed By: #### U AX #### [address] [address] Director Veterinary: Norman Blake MD Urobilinogen,Ur Normal Normal 0.0-1.0 [facility] Comment on above: Performed By: #### U AX #### [address] [address] Director Veterinary: Norman Blake MD Venous Blood Gaseson 023 Body Temp. 37.0 Normal [facility] Comment on above: Performed By: #### R EJEC, HEPXA #### [address] [address] Director Veterinary: Norman Blake MD Carboxy Hgb 0.7 % Normal 0-5 [facility] Comment on above: Result Comment: Reference Range: Non-Smokers 0-2% Average Smoker 2-4% Heavy Smoker <10% Performed By: #### R EJEC, HEPXA #### [address] [address] Director Veterinary: Norman Blake MD FIO2 INFORMATION NOT PROVIDED Normal [facility] Comment on above: Performed By: #### R EJEC, HEPXA #### [address] [address] Director Veterinary: Norman Blake MD HCO3 (Bld) [Moles/Vol] 17.2 mmol/L Low 24-30 [facility] Comment on above: Performed By: #### R EJEC, HEPXA #### [address] [address] Director Veterinary: Norman Blake MD Negative Base Excess 7.0 mmol/L High 0.0-2.0 [facility] Comment on above: Performed By: #### R EJEC, HEPXA #### [address] [address] Director Veterinary: Norman Blake MD Oxygen saturation in Blood 90.7 % High 60.0-85.0 [facility] Comment on above: Performed By: #### R EJEC, HEPXA #### [address] [address] Director Veterinary: Norman Blake MD pCO2 32.2 mm Hg Low 39-55 [facility] Comment on above: Performed By: #### R EJEC, HEPXA #### [address] [address] Director Veterinary: Norman Blake MD pH (Bld) 7.348 [pH] Normal 7.320-7.420 [facility] Comment on above: Performed By: #### R EJEC, HEPXA #### [facility] [address] [place] [address] Director Veterinary: Norman Blake MD pO2 55.1 mm Hg High 30-50 [facility] Comment on above: Performed By: #### R EJEC, HEPXA #### [facility] [address] [place] [address] Director Veterinary: Norman Blake MD XR CHEST PORTABLEon 03-18-20 XR CHEST PORTABLE EXAMINATION: ONE XRAY VIEW OF THE CHEST 03/18/2023 5:31 am COMPARISON: 07/30/2020 HISTORY: ORDERING SYSTEM PROVIDED HISTORY: covid, r/o pna TECHNOLOGIST PROVIDED HISTORY: covid, r/o pna FINDINGS: Heart size and pulmonary vasculature are normal. The lungs are clear and normally expanded. Surrounding osseous and soft tissue structures are unremarkable. IMPRESSION: Normal examination. Interpreted by: Prieto Engel MD Signed by: Prieto Engel MD 03/18/23 Final result Normal [facility] XR Chest 1 View Frontalon XR Chest 1 View Frontal HISTORY: Dyspnea . Chest pain. COMPARISON: None available TECHNIQUE: Portable AP view of the chest FINDINGS: The cardiomediastinal silhouette is within normal limits. No pneumothorax, pleural effusion, or consolidation. Small nodular density of the right lung base may represent overlapping of structures or may be infectious/inflammat ory in etiology. No acute osseous abnormality. IMPRESSION: Small nodular density of the right lung base may represent overlapping of structures or may be infectious/inflammat ory in etiology. Continued follow-up recommended to ensure resolution. Final Signed (Electronic Signature): Max Wang DO 03/18/23 8:44 am Technologist: MADHAVI [facility] Consent Formson 03-17-2023 Consent Forms [id number] #[id number] [facility] ED Note - Physicianon 2022 ED Note - Physician Patient: DOUGLAS CORDOVA [facility]: [id number] Age: 27 years Sex: FEMALE : 1995 Associated Diagnoses: Anxiety; COVID-19; DKA (diabetic ketoacidosis) Author: Linn Johnson DO Basic Information Time seen: Date & time 03/17/2023 21:07:00. History source: Patient. Arrival mode: Private vehicle, walking. History limitation: None. History of Present Illness The patient presents with This patient presents to the emergency room for evaluation of chest pain, which started couple days ago. Worse to breathe, no medication was taken for this, she walked here to the emergency room tonight. Because it was worse. She was in the hospital, 16 March, with vomiting but signed out AMA,, when she had a disagreement with oral intake on the floor of the hospital. She was admitted for DKA, her insulin in her pump had run out for couple days. She states she has been in diabetic for her entire life. She states she does not have a history of cardiac disease, she has never had a heart catheterization before, she does not have a history of blood clots, she denies abdominal surgeries no recent surgeries, she states she does not smoke; She denies any srini abdominal pain, she states she has not been vomiting since he left the hospital on the , she has had diarrhea. She was around one little boy who had COVID. She was diagnosed with COVID here on 16 March. Her mother has a history of diabetes Physical exam pleasant, good eye contact, precise speech, pupils 3.5 mm justin, somewhat sleepy, arousable gives accurate information, and with treatment--decreasin g rate of ventilation, improving; Mouth dry, neck supple, no jvd at 0 degrees, no a/p/supraclavicular nodes, lungs cta, ventilates bilat well, increased rate (hyperventilating), abd soft, not overweight, non-tender, skin turgor decreased, neuro symmetric, it took some time to find an iv; . Health Status Allergies: Allergic Reactions (Selected) Unknown Penicillin- No reactions were documented. Shellfish- No reactions were documented. . Medications: (Selected) Inpatient Medications Ordered Sodium Chloride 0.9% intravenous solution 1,000 mL: 1,000 mL/hr, IV Documented Medications Documented HumaLOG 100 units/mL injectable solution: 0 Refill(s) OMNIPOD DASH PODS (GEN 4) 5PK: See instructions, change q 72 hours, 0 Refill(s) amphetamine-dextroam phetamine 30 mg oral capsule, extended release: 30 mg = 1 cap(s), PO, Daily, 0 Refill(s) carisoprodol 350 mg oral tablet: 350 mg = 1 tab(s), PO, TID, 0 Refill(s) gabapentin 800 mg oral tablet: 800 mg = 1 tab(s), PO, TID, 0 Refill(s) tiZANidine 4 mg oral tablet: 4 mg = 1 tab(s), PO, TID, 0 Refill(s) . Past Medical/ Family/ Social History Medical history: Resolved Diabetes mellitus ([id number]): Resolved. . Surgical history: No active procedure history items have been selected or recorded. . Family history: No family history items have been selected or recorded. . Social history: Social & Psychosocial Habits Alcohol 03/16/2023 Alcohol Use: Never Substance Use 03/16/2023 Substance use: Never Tobacco 03/16/2023 Smoking tobacco use: Current some day tobacco Electronic Cigarette/Vaping 03/16/2023 Electronic Cigarette Use: Never . Problem list: Active Problems (1) Disease caused by 2019 novel coronavirus . Medical Decision Making Orders Launch Orders Laboratory: Alcohol Level (Order): Blood, Stat collect, 03/17/2023 21:09 EDT, Lab Collect Troponin I High Sensitivity (Order): Blood, Stat collect, 03/17/2023 21:08 EDT, Lab Collect CMP Standard (Order): Blood, Stat collect, 03/17/2023 21:08 EDT, Lab Collect Urinalysis with Culture, if indicated Standard (Order): Urine, Stat collect, 03/17/2023 21:07 EDT, Nurse collect Test Serum 1 (Order): Blood, Stat collect, 03/17/2023 21:07 EDT, Lab Collect CBC w/ Auto Diff (Order): Blood, Stat collect, 03/17/2023 21:08 EDT, Lab Collect Triage Panel 12 (Order): Urine, Stat collect, 03/17/2023 21:07 EDT, Nurse collect, Clean Catch Patient Care: Cardiac Monitoring (Order): 03/17/2023 21:09 EDT, Constant Order Saline Lock Insert (Order): 03/17/2023 21:07 EDT Pharmacy: ketorolac (Order): 30 mg, IV Push, Once Ativan injection (Order): 1 mg, IV Push, Once Sodium Chloride 0.9% intravenous solution 1000 mL (Order): 1,000 mL/hr, IV Radiology: XR Chest 1 View Frontal (Order): 03/17/2023 21:07 EDT Stat, dysp, Allow Modification Per Radiologist, Transport Mode: Wheelchair Cardiovascular: EKG (Order): 03/17/2023 21:08 EDT, Dyspnea[SOB], Launch Orders Laboratory: Salicylate Level (Order): Blood, Stat collect, 03/17/2023 22:09 EDT, Lab Collect Acetaminophen Level (Order): Blood, Stat collect, 03/17/2023 22:08 EDT, Lab Collect , Launch Orders Laboratory: Ketone Serum (Order): Blood, Stat collect, 03/17/2023 23:37 EDT, Lab Collect , Launch Orders Laboratory: CMP Standard (Order): Blood, Stat collect, 03/17/2023 23:53 EDT, Lab Collect T (more content not included)... [facility] Telemetry Stripson 3 Telemetry Strips [id number] #[id number] [facility] .Auto Diff 1on 03-16-2023 Auto Archer % 3 % Normal 12 [facility] Comment on above: Performed By: #### 4 [id number] #### [facility] (DEFAULT) [address] [place] [address] Baso Abs# 0.1 x10 Normal 0.0-0.2 [facility] Comment on above: Performed By: #### 4 [id number] #### [facility] (DEFAULT) [address] [place] [address] Basophils/100 WBC (Bld) 1.3 % Normal 0.2-2.0 [facility] Comment on above: Performed By: #### 4 [id number] #### [facility] (DEFAULT) [address] [place] [address] Eos Abs# 0.0 x10 Normal 0.0-0.4 [facility] Comment on above: Performed By: #### 4 [id number] #### [facility] (DEFAULT) [address] [place] [address] Eosinophils/100 WBC (Bld) 0.0 % Low 0.9-4.0 [facility] Comment on above: Performed By: #### 4 [id number] #### [facility] (DEFAULT) [address] [place] [address] Lymph Abs# 0.9 x10 Low 1.3-2.9 [facility] Comment on above: Performed By: #### 4 [id number] #### [facility] (DEFAULT) [address] [place] [address] Lymphocytes/100 WBC (Bld) 11 % Low 14-48 [facility] Comment on above: Performed By: #### 4 [id number] #### [facility] (DEFAULT) [address] [place] [address] Archer Abs# 0.2 x10 Normal 0.0-0.8 [facility] Comment on above: Performed By: #### 4 [id number] #### [facility] (DEFAULT) [address] [place] [address] Neut Abs# 6.6 x10 Normal 1.5-9.2 [facility] Comment on above: Performed By: #### 4 [id number] #### [facility] (DEFAULT) [address] [place] [address] Neutrophils/100 WBC (Bld) 85 % Normal 44-88 [facility] Comment on above: Performed By: #### 4 [id number] #### [facility] (DEFAULT) [address] [place] [address] .QC SARS-CoV-2 (COVID-19)/Fl u/RSV (GeneXpert)on 03-16-2023 Internal Control Pass Normal [facility] Comment on above: Order Comment: Order ed by Discern. [[email or web address]] Performed By: #### 7 [id number], [id number] #### [facility] (DEFAULT) [address] [place] [address] Acetone Qlon 03-16-2023 Acetone SMALL Normal [facility] Comment on above: Performed By: #### 6 [id number] ####[facility] (DEFAULT)[address] [place] [address] Arterial Blood Gas Standardo n 03-16-2023 Base Excess Art -21.7 mmol/L Low -3.3-2.3 [facility] Comment on above: Performed By: #### 4 [id number] #### [facility] (DEFAULT) [address] [place] [address] Breakpoint Hemo Normal [facility] Comment on above: Performed By: #### 4 [id number] #### [facility] (DEFAULT) [address] [place] [address] Device Room Air Normal [facility] Comment on above: Performed By: #### 4 [id number] #### [facility] (DEFAULT) [address] [place] [address] Fio2 Art 21.0 % Normal 21.0-100.0 [facility] Comment on above: Performed By: #### 4 [id number] #### [facility] (DEFAULT) [address] [place] [address] HCO3 (Bld) [Moles/Vol] 6.0 mmol/L Low 22.0-27.0 [facility] Comment on above: Performed By: #### 4 [id number] #### [facility] (DEFAULT) [address] [place] [address] Oxygen saturation in Blood 97.9 % Normal 95.0-100.0 [facility] Comment on above: Performed By: #### 4 [id number] #### [facility] (DEFAULT) [address] [place] [address] pCO2 Art 19 mmHg Critically abnormal 34-44 [facility] Comment on above: Result Comment: Resu lts handed to Dr Gonzalez by on 03/16/23 @ 1045 Performed By: #### 4 [id number] #### [facility] (DEFAULT) [address] [place] [address] pH Art 7.11 Critically abnormal 7.37-7.44 [facility] Comment on above: Result Comment: Resu lts handed to Dr Gonzalez by RUTH on 03/16/23 @ 1045, RBD Performed By: #### 4 [id number] #### [facility] (DEFAULT) [address] [place] [address] pO2 Art 208 mmHg High 75-100 [facility] Comment on above: Performed By: #### 4 [id number] #### [facility] (DEFAULT) [address] [place] [address] Puncture Site Right Brachial Normal [facility] Comment on above: Performed By: #### 4 [id number] #### [facility] (DEFAULT) [address] [place] [address] Rate: 18 Invalid Interpretation Code [facility] Comment on above: Performed By: #### 4 [id number] #### [facility] (DEFAULT) [address] [place] [address] BMP Standardon 03-16-2023 eGFR Non AA >60 Invalid Interpretation Code [facility] Comment on above: Order Comment: While on Insulin Drip Performed By: #### 4 [id number] #### [facility] (DEFAULT) [address] [place] [address] eGFR AA >60 Invalid Interpretation Code [facility] Comment on above: Order Comment: While on Insulin Drip Performed By: #### 4 [id number] #### [facility] (DEFAULT) [address] [place] [address] Anion gap [Moles/Vol] 14.8 mmol/L Normal 5.0-19.0 [facility] Comment on above: Order Comment: While on Insulin Drip Performed By: #### 4 [id number] #### [facility] (DEFAULT) [address] [place] [address] Calcium [Mass/Vol] 7.7 mg/dL Low 8.9-10.3 [facility] Comment on above: Order Comment: While on Insulin Drip Performed By: #### 4 [id number] #### [facility] (DEFAULT) [address] [place] [address] Chloride [Moles/Vol] 108 mmol/L Normal 101-111 [facility] Comment on above: Order Comment: While on Insulin Drip Performed By: #### 4 [id number] #### [facility] (DEFAULT) [address] [place] [address] CO2 [Moles/Vol] 14 mmol/L Low 21-32 [facility] Comment on above: Order Comment: While on Insulin Drip Performed By: #### 4 [id number] #### [facility] (DEFAULT) [address] [place] [address] Creatinine [Mass/Vol] 0.69 mg/dL Normal 0.60-1.30 [facility] Comment on above: Order Comment: While on Insulin Drip Performed By: #### 4 [id number] #### [facility] (DEFAULT) [address] [place] [address] Glucose [Mass/Vol] 295.0 mg/dL High 74.0-118.0 [facility] Comment on above: Order Comment: While on Insulin Drip Performed By: #### 4 [id number] #### [facility] (DEFAULT) [address] [place] [address] Osmolality 278 mOsm/L Invalid Interpretation Code [facility] Comment on above: Order Comment: While on Insulin Drip Performed By: #### 4 [id number] #### [facility] (DEFAULT) [address] [place] [address] Potassium [Moles/Vol] 3.8 mmol/L Normal 3.6-5.1 [facility] Comment on above: Order Comment: While on Insulin Drip Result Comment: Pota ssium Therapy Performed By: #### 4 [id number] #### [facility] (DEFAULT) [address] [place] [address]71 Sodium [Moles/Vol] 133.0 mmol/L Low 136.0-144.0 [facility] Comment on above: Order Comment: While on Insulin Drip Performed By: #### 4 [id number] #### [facility] (DEFAULT) [address] [place] [address]197 Urea nitrogen [Mass/Vol] 16 mg/dL Normal 8-26 [facility] Comment on above: Order Comment: While on Insulin Drip Performed By: #### 4 [id number] #### [facility] (DEFAULT) [address] [place] [address] Urea nitrogen/Creatinine [Mass ratio] 23.1 mg/mg High 4.6-16.2 [facility] Comment on above: Order Comment: While on Insulin Drip Performed By: #### 4 [id number] #### [facility] (DEFAULT) [address] [place] [address] CBC w/ Auto Diffon 3 Erythrocyte distribution width (RBC) [Ratio] 15.4 % High 11.5-15.0 [facility] Comment on above: Performed By: #### 4 [id number] #### [facility] (DEFAULT) [address] [place] [address] Hematocrit (Bld) [Volume fraction] 41.6 % High 33.7-40.4 [facility] Comment on above: Performed By: #### 4 [id number] #### [facility] (DEFAULT) [address] [place] [address] Hemoglobin (Bld) [Mass/Vol] 13.1 g/dL Normal 11.3-15.9 [facility] Comment on above: Performed By: #### 4 [id number] #### [facility] (DEFAULT) [address] [place] [address] Man Diff? Auto Invalid Interpretation Code [facility] Comment on above: Performed By: #### 4 [id number] #### [facility] (DEFAULT) [address] [place] [address] 40817 MCH (RBC) [Entitic mass] 25 pg Normal 24-34 [facility] Comment on above: Performed By: #### 4 [id number] #### [facility] (DEFAULT) [address] [place] [address]607 MCHC (RBC) [Mass/Vol] 32 g/dL Normal 26-37 [facility] Comment on above: Performed By: #### 4 [id number] #### [facility] (DEFAULT) [address] [place] [address] MCV (RBC) [Entitic vol] 81 fL Normal 81-100 [facility] Comment on above: Performed By: #### 4 [id number] #### [facility] (DEFAULT) [address] [place] [address] Platelet 298 x10 Normal 138-427 [facility] Comment on above: Performed By: #### 4 [id number] #### [facility] (DEFAULT) [address] [place] [address] Platelet mean volume (Bld) [Entitic vol] 8.6 fL Normal 6.3-10.2 [facility] Comment on above: Performed By: #### 4 [id number] #### [facility] (DEFAULT) [address] [place] [address] RBC 5.14 x10 Normal 3.70-5.30 [facility] Comment on above: Performed By: #### 4 [id number] #### [facility] (DEFAULT) [address] [place] [address] WBC 7.8 x10 Normal 3.5-10.5 [facility] Comment on above: Performed By: #### 4 [id number] #### [facility] (DEFAULT) [address] [place] [address] CMP Standardon 03-16-2023 Breakpoint Chem Normal [facility] Comment on above: Performed By: #### 4 [id number] #### [facility] (DEFAULT) [address] [place] [address] eGFR Non AA >60 Invalid Interpretation Code [facility] Comment on above: Performed By: #### 4 [id number] #### [facility] (DEFAULT) [address] [place] [address] eGFR AA >60 Invalid Interpretation Code [facility] Comment on above: Performed By: #### 4 [id number] #### [facility] (DEFAULT) [address] [place] [address] Albumin [Mass/Vol] 3.9 g/dL Normal 3.5-5.0 [facility] Comment on above: Performed By: #### 4 [id number] #### [facility] (DEFAULT) [address] [place] [address] 41055 Albumin/Globulin [Mass ratio] 1.1 {ratio} Low 1.4-2.6 [facility] Comment on above: Performed By: #### 4 [id number] #### [facility] (DEFAULT) [address] [place] [address] 11404 Alk Phos 76 IU/L Normal 32-91 [facility] Comment on above: Performed By: #### 4 [id number] #### [facility] (DEFAULT) [address] [place] [address] 68047 ALT [Catalytic activity/Vol] 17.0 U/L Normal 14.0-54.0 [facility] Comment on above: Performed By: #### 4 [id number] #### [facility] (DEFAULT) [address] [place] [address] 58083 Anion gap [Moles/Vol] 26.3 mmol/L High 5.0-19.0 [facility] Comment on above: Performed By: #### 4 [id number] #### [facility] (DEFAULT) [address] [place] [address] 11834 AST [Catalytic activity/Vol] 19 U/L Normal 15-41 [facility] Comment on above: Performed By: #### 4 [id number] #### [facility] (DEFAULT) [address] [place] [address] 50842 Bili Total 1.6 mg/dL High 0.3-1.2 [facility] Comment on above: Performed By: #### 4 [id number] #### [facility] (DEFAULT) [address] [place] [address] 15398 Calcium [Mass/Vol] 8.0 mg/dL Low 8.9-10.3 [facility] Comment on above: Performed By: #### 4 [id number] #### [facility] (DEFAULT) [address] [place] [address] 43068 Chloride [Moles/Vol] 97 mmol/L Low 101-111 [facility] Comment on above: Performed By: #### 4 [id number] #### [facility] (DEFAULT) [address] [place] [address] 45660 CO2 [Moles/Vol] 8 mmol/L Low 21-32 [facility] Comment on above: Performed By: #### 4 [id number] #### [facility] (DEFAULT) [address] [place] [address] 59107 Creatinine [Mass/Vol] 0.99 mg/dL Normal 0.60-1.30 [facility] Comment on above: Performed By: #### 4 [id number] #### [facility] (DEFAULT) [address] [place] [address] 01662 Globulin (S) [Mass/Vol] 3.4 g/dL Normal 1.5-4.3 [facility] Comment on above: Performed By: #### 4 [id number] #### [facility] (DEFAULT) [address] [place] [address] 97679 Glucose [Mass/Vol] 645.0 mg/dL Critically abnormal 74.0-118.0 [facility] Comment on above: Result Comment: Crit ical result GLU 645 mg/dL called to and read back by Sanjuana BENSON RN at 16-Mar-2023 11:05 by Anahy. Performed By: #### 4 [id number] #### [facility] (DEFAULT) [address] [place] [address] 29211 Osmolality 285 mOsm/L Invalid Interpretation Code [facility] Comment on above: Performed By: #### 4 [id number] #### [facility] (DEFAULT) [address] [place] [address] 35906 Potassium [Moles/Vol] 5.3 mmol/L High 3.6-5.1 [facility] Comment on above: Performed By: #### 4 [id number] #### [facility] (DEFAULT) [address] [place] [address] 93327 Protein [Mass/Vol] 7.3 g/dL Normal 6.5-8.1 [facility] Comment on above: Performed By: #### 4 [id number] #### [facility] (DEFAULT) [address] [place] [address] 55547 Sodium [Moles/Vol] 126.0 mmol/L Low 136.0-144.0 [facility] Comment on above: Performed By: #### 4 [id number] #### [facility] (DEFAULT) [address] [place] [address] 40781 Urea nitrogen [Mass/Vol] 16 mg/dL Normal 8-26 [facility] Comment on above: Performed By: #### 4 [id number] #### [facility] (DEFAULT) [address] [place] [address] 99611 Urea nitrogen/Creatinine [Mass ratio] 16.1 mg/mg Normal 4.6-16.2 [facility] Comment on above: Performed By: #### 4 [id number] #### [facility] (DEFAULT) [address] [place] [address] 22946 COVID/Flu/RSV (GeneXpert)on 03-16-2023 Flu A (GXpert COVFLURSV) Negative Normal Negative [facility] Comment on above: Performed By: #### 7 [id number] #### [facility] (DEFAULT) [address] [place] [address] 31759 Flu B (GXpert COVFLURSV) Negative Normal Negative [facility] Comment on above: Performed By: #### 7 [id number], [id number] #### [facility] (DEFAULT) [address] [place] [address] 78332 RSV (GXpert COVFLURSV) Negative Normal Negative [facility] Comment on above: Performed By: #### 7 [id number], [id number] #### [facility] (DEFAULT) [address] [place] [address] 19908 SARS-CoV-2 (COVID-19) RNA CARMEN+probe Ql (Unsp spec) Positive Critically abnormal Negative [facility] Comment on above: Result Comment: Resu lts Called To September By TB And Read Back For Confirmation On 03/16/2023 11:14:35 EDT. Performed by PCR methodology. Performed By: #### 7 [id number], [id number] #### [facility] (DEFAULT) [address] [place] [address] 66276 ED Clinical Summaryon 2022 ED Clinical Summary [facility] Emergency Department [address] [place] [address] ED Clinical Summary PERSON INFORMATION Name: DOUGLAS CORDOVA Age: 27 Years Sex: FEMALE : 1995 MRN: Acct#: Visit Reason: Hyperglycemia; DKA, COVID + Arrival: 03/16/2023 09:20:00 Discharge: LOS: 000 03:32 Check In: 03/16/2023 09:20:00 Checkout:03/16/2023 12:52:50 Address: [address] [facility] [address] PCP: ARCADIO IGLESIAS PROVIDER INFORMATION Provider Role Assigned Unassigned Mannie Gonzalez MD ED Provider 03/16/2023 09:20:26 October, [place] WOLFF ED Nurse 03/16/2023 09:26:59 VITALS INFORMATION Vital Sign Triage Latest Temperature Tympanic Temperature Temporal Artery 36.1 DegC Pulse Rate 115 bpm 99 bpm O2 Sat 95 % 92 % Respiratory Rate 18 br/min 16 br/min Blood Pressure /96 mmHg /96 mmHg MEDICAL INFORMATION Medications Given: Medication Dose Route Sodium Chloride 0.9% intravenous solution 1,000 mL 1000 mL Initial Volume 1000 mL/hr IV Left Upper Arm Sodium Chloride 0.9% intravenous solution 1,000 mL 1000 mL Initial Volume 1000 mL/hr IV Left Upper Arm ondansetron 4 mg IV Push insulin regular 100 unit(s) + Sodium Chloride 0.9% intravenous solution 100 mL (Novolin R additive 100 unit(s) + Sodium Chloride 0.9% intravenous solution 100 mL) 100 mL Initial Volume 6 mL/hr IV Left Upper Arm insulin regular 100 unit(s) + Sodium Chloride 0.9% intravenous solution 100 mL (Novolin R additive 100 unit(s) + Sodium Chloride 0.9% intravenous solution 100 mL) 100 mL Initial Volume 6 mL/hr IV Left Upper Arm insulin regular 15 unit(s) IV Push Sodium Chloride 0.9% intravenous solution 1,000 mL 1000 mL Initial Volume 100 mL/hr IV Left Upper Arm ondansetron 4 mg IV Push Allergy Information: shellfish; penicillin PHYSICIAN DOCUMENTATION DISCHARGE INFORMATION: Discharge Disposition: Admitted as Observation Discharge Location: PATIENT EDUCATION INFORMATION Instructions: Follow-Up: DIAGNOSIS: 1:Diabetic ketoacidosis; 2:COVID-19 Patient Understands: Yes - Patient/family/careg ron verbalizes understanding of instructions given Comment: [facility] ED Note-Nursingon 03-16-2023 ED Note-Nursing Patient presents with complaints of increased blood sugar. Patient with a history of Type 1 diabetes. Patient in insulin, however states she has not had her insulin in 3 days because she has not been able to get her prescription. Patient also complains of nausea and vomiting. Patient with an obvious acetone smell about her. [facility] ED Patient Education Noteon 03-16-2023 ED Patient Education Note Education Materials [facility] ED Patient Summaryon 023 ED Patient Summary [facility] - Emergency Department [address] [id number] PATIENT DISCHARGE INSTRUCTIONS Patient Information Name: DOUGLAS CORDOVA Age: 27 Years Date of : 1995 Reason For Visit: Hyperglycemia; DKA, COVID + Arrival Time: 03/16/2023 09:20:00 Primary Care Physician: ARCADIO IGLESIAS Attending Physician: Macy Armenta MD Comment: Visit Diagnosis: Diagnoses This Visit COVID-19 (U07.1) Diabetic ketoacidosis (E11.10) Hyperglycemia ([id number]) The Pharmacy at [facility] is open Friday through Friday from 9A to 6P and Friday and Friday from 9A to 5P Prescription Information: If you have been given a prescription for narcotics, seek immediate medical attention if you have any difficulty breathing or any sudden status changes such as confusion and sleepiness. If you or anyone you know is experiencing suicidal thoughts, mental health, alcohol and/or drug addiction problems; contact the [facility] 20/01 Crisis Hotline -Text 9DVDV uv [phone]. If you received any narcotics, sedation, or any other medication that causes drowsiness for the next 24 hours, unless otherwise directed: ? Do not drive a car. ? Do not operate machinery such as power tools, lawn mowers, drills, sewing machines, or stoves ? Avoid alcoholic beverages and drugs for allergies, nerves, or sleep ? Do not make important personal or business decisions or sign any legal documents Medication Information: The exam and treatment you received today in the [facility] Emergency Department were for an urgent problem and are not intended as complete care. It is important for you to follow up with a doctor, nurse practitioner, or physician?s assistant press operator for ongoing care. If your symptoms become worse or you do not improve as expected and you are unable to reach your usual health care provider, you should return to the Emergency Department, we are available 24 hours a day. For those patients who have received Radiology results, the interpretation of your X-ray as given to you by our Emergency Department physician is only a preliminary report. The Radiologist will review your films and if there is a change in the diagnosis you will be notified by phone. Please make sure you have provided a working phone number so we can reach you if necessary. In the event that you had a lab culture while you were a patient in the Emergency Department, you will be notified by phone if there is a need to change your antibiotic. Please make sure you have provided a working phone number so we can reach you if necessary. [facility] Emergency Department has provided you with a complete list of medications post discharge. Please inform your ribbon blockmaker/provider of your visit and for further instruction on these medications. Any specific questions regarding your chronic medications and dosages should be discussed with your primary care physician(s) and/or pharmacist. Medications to Continue That Have Not Changed Other Medications amphetamine-dextroam phetamine (amphetamine-dextroa mphetamine 30 mg oral capsule, extended release) carisoprodol (carisoprodol 350 mg oral tablet) Durable Medical Equipment for Prescription ([employer] [facility] PODS (GEN 4) 5PK) See instructions. gabapentin (gabapentin 800 mg oral tablet) insulin lispro (HumaLOG 100 units/mL injectable solution) tiZANidine (tiZANidine 4 mg oral tablet) Visit Information Allergies: Substance Reaction Symptoms Type Comments penicillin Drug shellfish Food Vital Signs: Vitals and Measurements this Visit (last charted value for your 03/16/2023 visit) Vital Signs This Visit Temperature Temporal Artery: 36.1 DegC Peripheral Pulse Rate: 99 bpm Heart Rate Monitored: 84 bpm Respiratory Rate: 16 br/min Systolic Blood Pressure: 150 mmHg Diastolic Blood Pressure: 113 mmHg Mean Arterial Pressure, Cuff-Calculation: 125 mmHg Mean Arterial Pressure Cuff-Monitor: 134 mmHg SpO2: 92 % Oxygen Therapy: Room air Measurements This Visit Height/Length Dosin.000 cm Height/Length Estimated: 173.000 cm Weight Dosin.970 kg Weight Estimated: 58.970 kg Problems List: Problem Onset Comments Disease caused by 2019 novel coronavirus 03/16/23 Problem added by Rule (IC_COVID19_MAGR_PRO BLEM) following SARS-CoV-2 (COVID-19)/Flu/RSV (GeneXpert) from Nasopharyngeal Swab collected on 16-MAR-2023 09:34:00 EDT tested positive for COVID-19. Patient Education Viruses or Bacteria What?s got you sick? Antibiotics only treat bacterial infections. Viral illnesses cannot be treated with antibiotics. When an antibiotic is not prescribed, ask your healthcare professional for tips on how to relieve symptoms and feel better. Usual Cause Illness Viruses Bacteria Antibiotic Needed Cold/Runny Nose ? NO Bronchitis/Chest Cold (in otherwise healthy children and adults) ? NO Whooping Cough ? (more content not included)... Normal [facility] Magnesiumon 03-16-2023 Magnesium [Mass/Vol] 1.82 mg/dL Normal 1.80-2.50 [facility] Comment on above: Performed By: #### 4 [id number] #### [facility] (DEFAULT) [address] [place] [address]12 POCT Glucose Levelon 023 Glucose [Mass/Vol] 210 mg/dL High [address] [place] [address] Comment on above: Performed By: #### 4 [id number] #### [facility] (DEFAULT) [address] [place] [address] 06648 Glucose [Mass/Vol] 236 mg/dL High [address] [place] [address] Comment on above: Performed By: #### 7 [id number], [id number] #### [facility] (DEFAULT) [address] [place] [address] 80339 Glucose [Mass/Vol] 297 mg/dL High [address] Comment on above: Performed By: #### 4 [id number] #### [facility] (DEFAULT) [address] [place] [address]6741 Glucose [Mass/Vol] 273 mg/dL High [address] [place] [address] Comment on above: Performed By: #### 4 [id number] #### [facility] (DEFAULT) [address] [place] [address] 19487 Glucose [Mass/Vol] 297 mg/dL High [address] [place] [address] Comment on above: Performed By: #### 4 [id number] #### [facility] (DEFAULT) [address] [place] [address] 21995 Glucose [Mass/Vol] 563 mg/dL Critically abnormal [address] [place] [address] Comment on above: Performed By: #### 4 [id number] #### [facility] (DEFAULT) [address] [place] [address] 88156 Test Serum Preg Serum Internal Control OK [facility] Comment on above: Performed By: #### 4 [id number] #### [facility] (DEFAULT) [address] [place] [address] 32139 Test Serum Qual Negative [facility] Comment on above: Performed By: #### 4 [id number] #### [facility] (DEFAULT) [address] [place] [address] Progress Note - Nurseon 02-28 Progress Note - Nurse This concrete block plant supervisor called to urgent care waiting room area by clerical staff-advised that pt was discharged from hospital and needed a ride home. Upon further investigation, pt was found to have signed out AMA from , confirmed with 2S forensic social worker-and advised staff that she would be walking home. This concrete block plant supervisor follows up with patient. Pt sitting in urgent care waiting area with emesis bag in hand, barefoot, tearful. Pt advises she did check herself out of care against medical advice. This concrete block plant supervisor asks if she feels safe to go home at this time and if she has access to her insulin-pt advises she does. This concrete block plant supervisor asks if she could use any additional assistance or resources, pt declines. Pt provided with slipper socks, ekg patches removed from legs and arms, walked to ER waiting area and provided with diet drink and taxi voucher for $7.00 [address] to [facility], after hours taxi transporting her home. [Electronically Signed on: 03/16/2023 17:51 EDT] Yue RNShellie [Verified on: 03/16/2023 17:51 EDT] Yue RNShellie [facility] Progress Note - Nurse Patient left with all of her belongings and walked out of room to elevator without any socks. [Electronically Signed on: 03/16/2023 18:10 EDT] Aster Bernal RN [Verified on: 03/16/2023 18:10 EDT] Aster Bernal RN [facility] Progress Note - Nurse Upon doing assessment/ admission history patient requested something to drink. I informed her and reminded her that every time she drinks she has a large emesis. She didn't like that I refused her fluids and she said she wanted to leave. I had her sign an AMA paper. Then I notified Dr. Armenta and uSzi the concrete block plant supervisor. [Electronically Signed on: 03/16/2023 17:46 EDT] Aster Bernal RN [Verified on: 03/16/2023 17:46 EDT] Cook, Aster K RN [facility] UA [id number] 03-16-2023 UA Amorph. 1+ [facility] Comment on above: Order Comment: Urina lysis Microscopic order added on by [employer] Expert Rules system. Performed By: #### 1 [id number], [id number] ####[facility] (DEFAULT)[address] [place] [address] UA Bacteria Rare [facility] Comment on above: Order Comment: Urina lysis Microscopic order added on by [employer] Expert Rules system. Performed By: #### 1 [id number], [id number] ####[facility] (DEFAULT)[address] [place] [address] 32558 UA RBC 0-2 [facility] Comment on above: Order Comment: Urina lysis Microscopic order added on by [employer] Expert Rules system. Performed By: #### 1 [id number], [id number] ####[facility] (DEFAULT)[address] [place] [address] UA Squam Epi Few [facility] Comment on above: Order Comment: Urina lysis Microscopic order added on by [employer] Expert Rules system. Performed By: #### 1 [id number], [id number] ####[facility] (DEFAULT)[address] [place] [address] UA WBC None Seen [facility] Comment on above: Order Comment: Urina lysis Microscopic order added on by [employer] Expert Rules system. Performed By: #### 1 [id number], [id number] ####[facility] (DEFAULT)[address] [place] [address] UA w Culture if Ind Standard on 03-16-2023 Breakpoint UA [facility] Comment on above: Performed By: #### 1 [id number], [id number] ####[facility] (DEFAULT)[address] [place] [address] Color (U) Yellow [facility] Comment on above: Performed By: #### 1 [id number], [id number] ####[facility] (DEFAULT)[address] [place] [address] Culture? No [facility] Comment on above: Result Comment: Resu lt created by rule GL_MAGR_ADD_UA_CULT Result created by rule GL_MAGR_ADD_UA_CULT1 Performed By: #### 1 [id number], [id number] ####[facility] (DEFAULT)[address] [place] [address] 38549 Glucose (U) [Mass/Vol] mg/dL Normal [facility] Comment on above: Performed By: #### 1 [id number], [id number] ####[facility] (DEFAULT)[address] [place] [address] 51050 Ketones Ql (U) >=80 Normal [facility] Comment on above: Performed By: #### 1 [id number], [id number] ####[facility] (DEFAULT)[address] [place] [address] 65960 Micro? Indicated Invalid Interpretation Code [facility] Comment on above: Result Comment: Resu lt created by rule GL_MAGR_ADD_UA_MICRO Performed By: #### 1 [id number], [id number] ####[facility] (DEFAULT)[address] [place] [address] 14594 UA Bilirubin Negative Normal [facility] Comment on above: Performed By: #### 1 [id number], [id number] ####[facility] (DEFAULT)[address] [place] [address] 78842 UA Blood TRACE Abnormal NEGATIVE [facility] Comment on above: Performed By: #### 1 [id number], [id number] ####[facility] (DEFAULT)[address] [place] [address] 80643 UA Clarity CLEAR Normal CLEAR [facility] Comment on above: Performed By: #### 1 [id number], [id number] ####[facility] (DEFAULT)[address] [place] [address] 62752 UA Leuk Est Negative Normal NEGATIVE [facility] Comment on above: Performed By: #### 1 [id number], [id number] ####[facility] (DEFAULT)[address] [place] [address] 00834 UA Nitrite Negative Normal NEGATIVE [facility] Comment on above: Performed By: #### 1 [id number], [id number] ####[facility] (DEFAULT)[address] [place] [address] 80439 UA pH 6.0 Normal 5-8 [facility] Comment on above: Performed By: #### 1 [id number], [id number] ####[facility] (DEFAULT)[address] [place] [address] 42118 UA Protein Negative Normal NEGATIVE [facility] Comment on above: Performed By: #### 1 [id number], [id number] ####[facility] (DEFAULT)[address] [place] [address] 53697 UA Spec Grav 1.025 Normal 1.001-1.035 [facility] Comment on above: Performed By: #### 1 [id number], [id number] ####[facility] (DEFAULT)[address] [place] [address] 34760 UA Urobilinogen 0.2 mg/dL Normal 0.2-1.0 [facility] Comment on above: Performed By: #### 1 [id number], [id number] ####[facility] (DEFAULT)[address] [place] [address] 87386 Urine Source Clean Catch Normal [facility] Comment on above: Performed By: #### 1 [id number], [id number] ####[facility] (DEFAULT)[address] [place] [address] 51079 ACETONE SERUMon 08-25-2022 ACETONE SMALL Abnormal NEGATIVE [facility] Comment on above: Performed By: #### A CETON, PREG #### [facility] [address] [address] [address] Darleen Cho CBC AUTO DIFFon 08-25-2022 BASO # 0.1 103/ul Normal 0.0-0.1 [facility] Comment on above: Performed By: #### B MP #### [facility] [address] [address] [address] Darleen Cho Basophils/100 WBC (Bld) 0.4 % Normal 0.2-2.0 [facility] Comment on above: Performed By: #### B MP #### [facility] [address] [address] [address] Darleen Cho EO # 0.1 103/ul Normal 0.0-0.7 [facility] Comment on above: Performed By: #### B MP #### [facility] [address] [place] [address] Dr. Darleen Cho Eosinophils/100 WBC (Bld) 0.3 % Critically low 0.9-7.0 [facility] Comment on above: Performed By: #### B MP #### [facility] [address] [place] [address] Dr. Darleen Cho Erythrocyte distribution width (RBC) [Ratio] 14.6 % Normal 11.0-15.0 [facility] Comment on above: Performed By: #### B MP #### [facility] [address] [place] [address] Dr. Darleen Cho Hematocrit (Bld) [Volume fraction] 43.9 % Normal 36.0-48.0 [facility] Comment on above: Performed By: #### B MP #### [facility] [address] [place] [address] Dr. Darleen Cho Hemoglobin (Bld) [Mass/Vol] 13.8 g/dL Normal 12.0-16.0 [facility] Comment on above: Performed By: #### B MP #### [facility] [address] [place] [address] Dr. Darleen Cho IG # 0.25 10e3/ul Critically high 0.00-0.03 [facility] Comment on above: Performed By: #### B MP #### [facility] [address] [place] [address] Dr. Darleen Cho IG % 1.1 % Critically high 0.0-0.5 [facility] Comment on above: Performed By: #### B MP #### [facility] [address] [place] [address] Dr. Darleen Cho LYMPH # 2.3 103/ul Normal 1.2-3.8 [facility] Comment on above: Performed By: #### B MP #### [facility] [address] [address] [address] Darleen Cho Lymphocytes/100 WBC (Bld) 10.4 % Critically low 20.5-60.0 [facility] Comment on above: Performed By: #### B MP #### [facility] [address] [address] [address] Darleen Cho MANUAL DIFF REQ NO Normal [facility] Comment on above: Performed By: #### B MP #### [facility] [address] [address] [address] Darleen Cho MCH (RBC) [Entitic mass] 24.1 pg Critically low 26.7-34 .0 [facility] Comment on above: Performed By: #### B MP #### [facility] [address] [place] [address] Dr. Darleen Cho MCHC (RBC) [Mass/Vol] 31.4 g/dL Normal 29.9-35.2 [facility] Comment on above: Performed By: #### B MP #### [facility] [address] [place] [address] Dr. Darleen Cho MCV (RBC) [Entitic vol] 76.7 fL Critically low 81.0-99. 0 [facility] Comment on above: Performed By: #### B MP #### [facility] [address] [place] [address] Dr. Darleen Cho MONO # 0.3 103/ul Normal 0.3-0.8 [facility] Comment on above: Performed By: #### B MP #### [facility] [address] [place] [address] Dr. Darleen Cho Monocytes/100 WBC (Bld) 1.2 % Critically low 1.7-12.0 [facility] Comment on above: Performed By: #### B MP #### [facility] [address] [place] [address] Dr. Darleen Cho NEUT # 19.4 103/ul Critically high 1.4-6.5 [facility] Comment on above: Performed By: #### B MP #### [facility] [address] [place], [place] [id number] Dr. Darleen Cho Neutrophils/100 WBC (Bld) 86.6 % Critically high 43.0-75.0 [facility] Comment on above: Performed By: #### B MP #### [facility] [address] [place] [address] Dr. Darleen Cho Platelet mean volume (Bld) [Entitic vol] 9.1 fL Critically low 9.5-13.5 [facility] Comment on above: Performed By: #### B MP #### [facility] [address] [place] [address] Dr. Darleen Cho PLT 557 103/ul Critically high 150-450 [facility] Comment on above: Performed By: #### B MP #### [facility] [address] [place] [address] Dr. Darleen Cho RBC 5.72 106/ul Critically high 4.20-5.40 [facility] Comment on above: Performed By: #### B MP #### [facility] [address] [place] [address] Dr. Darleen Cho WBC 22.4 103/ul Critically high 4.0-11.0 [facility] Comment on above: Performed By: #### B MP #### [facility] [address] [place] [address] Dr. Darleen Cho CULTURE BLOODon 08-25-2022 Microscopic examination of blood, culture Culture Observations: NO GROWTH AT 5 DAYS. Normal [facility] Comment on above: Performed By: #### B MP #### [facility] [address] [place] [address] Dr. Darleen Cho Microscopic examination of blood, culture Culture Observations: NO GROWTH AT 5 DAYS. Normal [facility] Comment on above: Performed By: #### B MP #### [facility] [address] [place], [place] [id number] Dr. Darleen Cho CULTURE URINEon 08-25-2022 CULTURE URINE Culture Observations: NO GROWTH. Normal [facility] Comment on above: Performed By: #### B MP #### [facility] [address] [place] [address] Dr. Darleen Cho Covid-19 PCR (CVDTBH)on 08-01 SARS-CoV-2 (COVID-19) RNA CARMEN+probe Ql (Unsp spec) Not detected Normal NOT DETECTED [facility] Comment on above: Result Comment: When diagnostic testing is negative, the possibility of a false negative should be considered in the context of a patient's recent exposures and the presence of clinical signs and symptoms consistent with SARS-CoV-2. This test is not yet approved or cleared by the [place] FDA. When there are no FDA-approved or cleared tests available, and other criteria are met, FDA can make tests available under an emergency access mechanism called an Emergency Use Authorization (EUA). The EUA for this test is supported by the [place] of Health and Human Service's declaration that circumstances exist to justify the emergency use of in vitro diagnostics for the detection and/or diagnosis of the virus that causes COVID-19. This EUA will remain in effect for the duration of the COVID-19 declaration justifying emergency of IVDs, unless it is terminated or revoked by the FDA (after which the test may no longer be used). Performed By: #### C VDTBH #### [facility] [address] [place] [address] Dr. Darleen Cho ER URINE PROFILEon 3 Bilirubin Ql (U) SMALL Abnormal NEGATIVE [facility] Comment on above: Performed By: #### U MICRO, ERUR #### [facility] [address] [place] [address] Dr. Darleen Cho Clarity (U) CLEAR Normal CLEAR [facility] Comment on above: Performed By: #### U MICRO, ERUR #### [facility] [address] [place] [address] Dr. Darleen Cho Color (U) LT. YELLOW Normal YELLOW [facility] Comment on above: Performed By: #### U MICRO, ERUR #### [facility] [address] [place] [address] Dr. Darleen Cho ERUAHD A micrscopic examination will be performed if indicated. Normal [facility] Comment on above: Performed By: #### U MICRO, ERUR #### [facility] [address] [address] [address] Darleen Cho Glucose Ql (U) 500 mg/dl Abnormal NEGATIVE [facility] Comment on above: Performed By: #### U MICRO, ERUR #### [facility] [address] [place] [address] Dr. Darleen Cho Hemoglobin Ql (U) MODERATE Abnormal NEGATIVE [facility] Comment on above: Performed By: #### U MICRO, ERUR #### [facility] [address] [address] [address] Darleen Cho Ketones Ql (U) >=80 Abnormal NEGATIVE [facility] Comment on above: Performed By: #### U MICRO, ERUR #### [facility] [address] [place] [address] Dr. Darleen Cho LEUKOCYTES Negative Normal NEGATIVE [facility] Comment on above: Performed By: #### U MICRO, ERUR #### [facility] [address] [place] [address] Dr. Darleen Cho Nitrite Ql (U) Negative Normal NEGATIVE [facility] Comment on above: Performed By: #### U MICRO, ERUR #### [facility] [address] [place] [address] Dr. Darleen Cho pH (U) 5.5 [pH] Normal 5-9 [facility] Comment on above: Performed By: #### U MICRO, ERUR #### [facility] [address] [place] [address] Dr. Darleen Cho Protein (U) [Mass/Vol] 100 mg/dL Abnormal NEGAT MALISSA/ TRACE [facility] Comment on above: Performed By: #### U MICRO, ERUR #### [facility] [address] [place] [address] Dr. Darleen Cho SPEC GRAVITY >=1.030 Abnormal 1.005-<=1.02 5 [facility] Comment on above: Performed By: #### U MICRO, ERUR #### [facility] [address] [place] [address] Dr. Darleen Cho UR MICRO IND INDICATED Normal [facility] Comment on above: Performed By: #### U MICRO, ERUR #### [facility] [address] [place] [address] Dr. Darleen Cho Urobilinogen Qn (U) 0.2 {Ophelia'U}/dL Normal 0.2 - 1. 0 [facility] Comment on above: Performed By: #### U MICRO, ERUR #### [facility] [address] [place] [address] Dr. Darleen Cho HIV 1/2 RAPID (EXPOSURE ONLY )on 08-25-2022 HIV AB Non-Reactive Normal NON-REACTIVE [facility] Comment on above: Performed By: #### R PDHIV #### [facility] [address] [place] [address] Dr. Darleen Cho HIV AG Non-Reactive Normal NON-REACTIVE [facility] Comment on above: Performed By: #### R PDHIV #### [facility] [address] [place] [address] Dr. Darleen Cho INTERNAL CONTROLS Within Normal Limits Normal Wi thin Normal Limits [facility] Comment on above: Performed By: #### R PDHIV #### [facility] [address] [place] [address] Dr. Darleen Cho RAPID HIV INFO SEE BELOW Normal [facility] Comment on above: Result Comment: This test is used for the initial screening of the exposure source. Confirmation of all reactive results will be obtained through reference lab testing. Performed By: #### R PDHIV #### [facility] [address] [place] [address] Dr. Darleen Cho PH VENOUS BLOODon 08-25-2022 PCO2 VENOUS 24.1 mmHg Critically low 40.0-52.0 [facility] Comment on above: Performed By: #### B MP #### [facility] [address] [place] [address] Dr. Darleen Cho pH VENOUS 7.288 Critically low 7.330-7.430 [facility] Comment on above: Performed By: #### B MP #### [facility] [address] [place] [address] Dr. Darleen Cho PCO2 VENOUS 18.1 mmHg Critically low 40.0-52.0 [facility] Comment on above: Performed By: #### P HVEN #### [facility] [address] [place] [address] Dr. Darleen Cho pH VENOUS 7.157 Critically low 7.330-7.430 [facility] Comment on above: Performed By: #### P HVEN #### [facility] [address] [address] [address] Darleen Cho PCO2 VENOUS 18.3 mmHg Critically low 40.0-52.0 [facility] Comment on above: Performed By: #### P HVEN #### [facility] [address] [address] [address] Darleen Cho pH VENOUS 6.933 Critically low 7.330-7.430 [facility] Comment on above: Performed By: #### P HVEN #### [facility] [address] [place] [address] Dr. Darleen Cho POINT OF CARE GLUCOSEon 08-01 Glucose [Mass/Vol] 201 mg/dL Critically high 74-106 [facility] Comment on above: Performed By: #### B MP #### [facility] [address] [place] [address] Dr. Darleen Cho Glucose [Mass/Vol] 373 mg/dL Critically high 74-106 [facility] Comment on above: Performed By: #### B MP #### [facility] [address] [address] [address] Darleen Cho Glucose [Mass/Vol] 433 mg/dL Critically high 74-106 [facility] Comment on above: Performed By: #### B MP #### [facility] [address] [place] [address] Dr. Darleen Cho PREG HCG QUALon 08-25-2022 , QUAL Negative Normal NEGATIVE [facility] Comment on above: Performed By: #### A CETON, PREG #### [facility] [address] [place] [address] Dr. Darleen Cho PROF CHEM 8 (BAS METB)on Anion gap [Moles/Vol] 19.7 mmol/L Normal [facility] Comment on above: Performed By: #### B MP #### [facility] [address] [address] [address] Darleen Cho Calcium [Mass/Vol] 7.2 mg/dL Critically low 8.5-10.1 [facility] Comment on above: Performed By: #### B MP #### [facility] [address] [place] [address] Dr. Darleen Cho Chloride [Moles/Vol] 100 mmol/L Normal 98-107 [facility] Comment on above: Performed By: #### B MP #### [facility] [address] [place] [address] Dr. Darleen Cho CO2 [Moles/Vol] 13.5 mmol/L Critically low 21.0-32.0 [facility] Comment on above: Performed By: #### B MP #### [facility] [address] [place] [address] Dr. Darleen Cho Creatinine [Mass/Vol] 0.71 mg/dL Normal 0.55-1.02 [facility] Comment on above: Performed By: #### B MP #### [facility] [address] [place] [address] Dr. Darleen Cho EGFR-AF TURKMEN >60 Normal >=60 [facility] Comment on above: Performed By: #### B MP #### [facility] [address] [place] [address] Dr. Darleen Cho EGFR-NON AF TURKMEN >60 Normal >=60 [facility] Comment on above: Performed By: #### B MP #### [facility] [address] [place] [address] Dr. Darleen Cho Glucose [Mass/Vol] 333 mg/dL Critically high 74-106 [facility] Comment on above: Performed By: #### B MP #### [facility] [address] [place] [address] Dr. Darleen Cho Potassium [Moles/Vol] 3.2 mmol/L Critically low 3.5-5.1 [facility] Comment on above: Performed By: #### B MP #### [facility] [address] [address] [address] Darleen Cho Sodium [Moles/Vol] 130 mmol/L Critically low 136-145 [facility] Comment on above: Performed By: #### B MP #### [facility] [address] [address] [address] Darleen Cho Urea nitrogen [Mass/Vol] 8.0 mg/dL Normal 7.0-18.0 [facility] Comment on above: Performed By: #### B MP #### [facility] [address] [address] [address] Darleen Cho Urea nitrogen/Creatinine [Mass ratio] 11.3 mg/mg Normal [facility] Comment on above: Performed By: #### B MP #### [facility] [address] [address] [address] Darleen Cho Anion gap [Moles/Vol] 24.7 mmol/L Normal [facility] Comment on above: Performed By: #### B MP #### [facility] [address] [address] [address] Darleen Cho Calcium [Mass/Vol] 7.2 mg/dL Critically low 8.5-10.1 [facility] Comment on above: Performed By: #### B MP #### [facility] [address] [address] [address] Darleen Cho Chloride [Moles/Vol] 102 mmol/L Normal 98-107 [facility] Comment on above: Performed By: #### B MP #### [facility] [address] [address] [address] Darleen Cho CO2 [Moles/Vol] 8.6 mmol/L Critically low 21.0-32.0 [facility] Comment on above: Performed By: #### B MP #### [facility] [address] [address] [address] Darleen Cho Creatinine [Mass/Vol] 0.63 mg/dL Normal 0.55-1.02 [facility] Comment on above: Performed By: #### B MP #### [facility] [address] [address] [address] Darleen Cho EGFR-AF TURKMEN >60 Normal >=60 [facility] Comment on above: Performed By: #### B MP #### [facility] [address] [address] [address] Darleen Cho EGFR-NON AF TURKMEN >60 Normal >=60 [facility] Comment on above: Performed By: #### B MP #### [facility] [address] [address] [address] Darleen Cho Glucose [Mass/Vol] 228 mg/dL Critically high 74-106 [facility] Comment on above: Performed By: #### B MP #### [facility] [address] [place] [address] Dr. Darleen Cho Potassium [Moles/Vol] 3.3 mmol/L Critically low 3.5-5.1 [facility] Comment on above: Performed By: #### B MP #### [facility] [address] [place] [address] Dr. Darleen Cho Sodium [Moles/Vol] 132 mmol/L Critically low 136-145 [facility] Comment on above: Performed By: #### B MP #### [facility] [address] [place] [address] Dr. Darleen Cho Urea nitrogen [Mass/Vol] 11.0 mg/dL Normal 7.0-18.0 [facility] Comment on above: Performed By: #### B MP #### [facility] [address] [place] [address] Dr. Darleen Cho Urea nitrogen/Creatinine [Mass ratio] 17.5 mg/mg Normal [facility] Comment on above: Performed By: #### B MP #### [facility] [address] [place] [address] Dr. Darleen Cho Anion gap [Moles/Vol] 29.5 mmol/L Normal [facility] Comment on above: Performed By: #### B MP #### [facility] [address] [place] [address] Dr. Darleen Cho Calcium [Mass/Vol] 8.6 mg/dL Normal 8.5-10.1 [facility] Comment on above: Performed By: #### B MP #### [facility] [address] [address] [address] Darleen Cho Chloride [Moles/Vol] 94 mmol/L Critically low 98-107 [facility] Comment on above: Performed By: #### B MP #### [facility] [address] [address] [address] Darleen Cho CO2 [Moles/Vol] 5.9 mmol/L Critically low 21.0-32.0 [facility] Comment on above: Performed By: #### B MP #### [facility] [address] [place] [address] Dr. Darleen Cho Creatinine [Mass/Vol] 0.94 mg/dL Normal 0.55-1.02 [facility] Comment on above: Performed By: #### B MP #### [facility] [address] [place] [address] Dr. Darleen Cho EGFR-AF TURKMEN >60 Normal >=60 [facility] Comment on above: Performed By: #### B MP #### [facility] [address] [address] [address] Darleen Cho EGFR-NON AF TURKMEN >60 Normal >=60 [facility] Comment on above: Performed By: #### B MP #### [facility] [address] [address] [address] Darleen Cho Glucose [Mass/Vol] 403 mg/dL Critically high 74-106 [facility] Comment on above: Performed By: #### B MP #### [facility] [address] [address] [address] Darleen Cho Potassium [Moles/Vol] 4.4 mmol/L Normal 3.5-5.1 [facility] Comment on above: Performed By: #### B MP #### [facility] [address] [place] [address] Dr. Darleen Cho Sodium [Moles/Vol] 125 mmol/L Critically low 136-145 [facility] Comment on above: Performed By: #### B MP #### [facility] [address] [address] [address] Darleen Cho Urea nitrogen [Mass/Vol] 10.0 mg/dL Normal 7.0-18.0 [facility] Comment on above: Performed By: #### B MP #### [facility] [address] [address] [address] Darleen Cho Urea nitrogen/Creatinine [Mass ratio] 10.6 mg/mg Normal [facility] Comment on above: Performed By: #### B MP #### [facility] [address] [address] [address] Darleen Cho URINE MICROSCOPIC ONLYon BACTERIA TRACE Abnormal NONE SEEN [facility] Comment on above: Performed By: #### U MICRO, ERUR #### [facility] [address] [place] [address] Dr. Darleen Cho Bacteria identified Cx Nom (U) NOT INDICATED Normal [facility] Comment on above: Performed By: #### U MICRO, ERUR #### [facility] [address] [place] [address] Dr. Darleen Cho CAST NONE SEEN Normal NONE SEEN [facility] Comment on above: Performed By: #### U MICRO, ERUR #### [facility] [address] [place] [address] Dr. Darleen Cho Crystals LM Nom (Urine sed) NONE SEEN Normal NONE SEEN [facility] Comment on above: Performed By: #### U MICRO, ERUR #### [facility] [address] [place] [address] Dr. Darleen Cho Epithelial cells LM Ql (Urine sed) FEW Abnormal NONE SEEN /RARE [facility] Comment on above: Performed By: #### U MICRO, ERUR #### [facility] [address] [place] [address] Dr. Darleen Cho MUCOUS NONE SEEN Normal NONE SEEN [facility] Comment on above: Performed By: #### U MICRO, ERUR #### [facility] [address] [place] [address] Dr. Darleen Cho RBC 2-5 Abnormal 0-2 [facility] Comment on above: Performed By: #### U MICRO, ERUR #### [facility] [address] [address] [address] Darleen Cho WBC 0-2 Abnormal NONE SEEN [facility] Comment on above: Performed By: #### U MICRO, ERUR #### [facility] [address] [address] [address] Darleen Cho XR CHEST 1 Von 08-25-2022 XR CHEST 1 V EXAM: XR CHEST 1 V INDICATION: SHORTNESS OF BREATH. COMPARISON: None. TECHNIQUE: Single frontal view of the chest FINDINGS: Normal cardiomediastinal contours. Clear lungs. No pleural effusion or pneumothorax. No acute osseous abnormality. IMPRESSION: No acute cardiopulmonary process. Electronically authenticated by: ROSA M MENDEZ Date: 2022-08-25 12:46 Normal [facility] Covid-19 PCR (CVDTB)on 02-28 SARS-CoV-2 (COVID-19) RNA CARMEN+probe Ql (Unsp spec) Not detected Normal NOT DETECTED [facility] Comment on above: Result Comment: This test is not yet approved or cleared by the [place] FDA. When there are no FDA-approved or cleared tests available, and other criteria are met, FDA can make tests available under an emergency access mechanism called an Emergency Use Authorization (EUA). The EUA for this test is supported by the [employer] of Health and Human Service's (HHS's) declaration that circumstances exist to justify the emergency use of in vitro diagnostics for the detection and/or diagnosis of the virus that causes COVID-19. This EUA will remain in effect (meaning this test can be used) for the duration of the COVID-19 declaration justifying emergency of IVDs, unless it is terminated or revoked by FDA (after which the test may no longer be used). When diagnostic testing is negative, the possibility of a false negative should be considered in the context of a patient's recent exposures and the presence of clinical signs and symptoms consistent with SARS-CoV-2. Performed By: #### A CETON, PREG #### [facility] [address] [address] [address] Darleen Cho Basic Metabolic Panelon Anion gap [Moles/Vol] 10 mmol/L 9 - 17 mmol/L [place] Bun/Cre Ratio NOT REPORTED [place] Calcium [Mass/Vol] 8.3 mg/dL Low 8.6 - 10. 4 mg/dL [place] Chloride [Moles/Vol] 106 mmol/L 98 - 10 7 mmol/L [place] CO2 [Moles/Vol] 16 mmol/L Low 20 - 31 mmol/L [place] Creatinine [Mass/Vol] 0.53 mg/dL 0.5 - 0.9 mg/dL [place] GFR >60 >60 mL/min [place] GFR Non- >60 >60 mL/min [place] GFR/1.73 sq M predicted among non-blacks MDRD (S/P/Bld) [Vol rate/Area] [place] Comment on above: Average GFR for 20-2 9 years old: 116 mL/min/1.73sq m Chronic Kidney Disease: <60 mL/min/1.73sq m Kidney failure: <15 mL/min/1.73sq m eGFR calculated using average adult body mass. Additional eGFR calculator available at: http://www.[employer]ipal[employer]/multiple_crcl_2012.htm GFR/1.73 sq M predicted among non-blacks MDRD (S/P/Bld) [Vol rate/Area] NOT REPORTED [place] Glucose [Mass/Vol] 208 mg/dL High 70 - 99 mg/dL [place] Interpretation and review of laboratory results Abnormal [place] Potassium [Moles/Vol] 3.5 mmol/L Low 3.7 - 5.3 mmol/L [place] Sodium [Moles/Vol] 132 mmol/L Low 135 - 144 mmol/L [place] Urea nitrogen [Mass/Vol] 9 mg/dL 6 - 20 mg/d L [place] Anion gap [Moles/Vol] 13 mmol/L 9 - 17 mmol/L [place] Bun/Cre Ratio NOT REPORTED [place] Calcium [Mass/Vol] 8.4 mg/dL Low 8.6 - 10. 4 mg/dL [place] Chloride [Moles/Vol] 107 mmol/L 98 - 10 7 mmol/L [place] CO2 [Moles/Vol] 16 mmol/L Low 20 - 31 mmol/L [place] Creatinine [Mass/Vol] 0.6 mg/dL 0.5 - 0.9 mg/dL [place] GFR >60 >60 mL/min [place] GFR Non- >60 >60 mL/min [place] GFR/1.73 sq M predicted among non-blacks MDRD (S/P/Bld) [Vol rate/Area] NOT REPORTED [place] GFR/1.73 sq M predicted among non-blacks MDRD (S/P/Bld) [Vol rate/Area] [place] Comment on above: Average GFR for 20-2 9 years old: 116 mL/min/1.73sq m Chronic Kidney Disease: <60 mL/min/1.73sq m Kidney failure: <15 mL/min/1.73sq m eGFR calculated using average adult body mass. Additional eGFR calculator available at: http://www.[employer]/multiple_crcl_2012.htm Glucose [Mass/Vol] 189 mg/dL High 70 - 99 mg/dL [place] Interpretation and review of laboratory results Abnormal [place] Potassium [Moles/Vol] 3.6 mmol/L Low 3.7 - 5.3 mmol/L [place] Sodium [Moles/Vol] 136 mmol/L 135 - 144 mmol/L [place] Urea nitrogen [Mass/Vol] 7 mg/dL 6 - 20 mg/d L [place] Anion gap [Moles/Vol] 8 mmol/L Low 9 - 17 mmol/L [place] Bun/Cre Ratio NOT REPORTED [place] Calcium [Mass/Vol] 7.6 mg/dL Low 8.6 - 10. 4 mg/dL [place] Chloride [Moles/Vol] 110 mmol/L High 98 - 10 7 mmol/L [place] CO2 [Moles/Vol] 16 mmol/L Low 20 - 31 mmol/L [place] Creatinine [Mass/Vol] 0.41 mg/dL Low 0.5 - 0.9 mg/dL [place] GFR >60 >60 mL/min [place] GFR Non- >60 >60 mL/min [place] GFR/1.73 sq M predicted among non-blacks MDRD (S/P/Bld) [Vol rate/Area] [place] Comment on above: Average GFR for 20-2 9 years old: 116 mL/min/1.73sq m Chronic Kidney Disease: <60 mL/min/1.73sq m Kidney failure: <15 mL/min/1.73sq m eGFR calculated using average adult body mass. Additional eGFR calculator available at: http://www.[employer]/multiple_crcl_2012.htm GFR/1.73 sq M predicted among non-blacks MDRD (S/P/Bld) [Vol rate/Area] NOT REPORTED [place] Glucose [Mass/Vol] 188 mg/dL High 70 - 99 mg/dL [place] Interpretation and review of laboratory results Abnormal [place] Potassium [Moles/Vol] 3.6 mmol/L Low 3.7 - 5.3 mmol/L [place] Sodium [Moles/Vol] 134 mmol/L Low 135 - 144 mmol/L [place] Urea nitrogen [Mass/Vol] 5 mg/dL Low 6 - 20 mg/d L [place] Anion gap [Moles/Vol] 9 mmol/L 9 - 17 mmol/L [place] Bun/Cre Ratio NOT REPORTED [place] Calcium [Mass/Vol] 7.6 mg/dL Low 8.6 - 10. 4 mg/dL [place] Chloride [Moles/Vol] 118 mmol/L High 98 - 10 7 mmol/L [place] CO2 [Moles/Vol] 17 mmol/L Low 20 - 31 mmol/L [place] Creatinine [Mass/Vol] 0.46 mg/dL Low 0.5 - 0.9 mg/dL [place] GFR >60 >60 mL/min [place] GFR Non- >60 >60 mL/min [place] GFR/1.73 sq M predicted among non-blacks MDRD (S/P/Bld) [Vol rate/Area] NOT REPORTED [place] GFR/1.73 sq M predicted among non-blacks MDRD (S/P/Bld) [Vol rate/Area] [place] Comment on above: Average GFR for 20-2 9 years old: 116 mL/min/1.73sq m Chronic Kidney Disease: <60 mL/min/1.73sq m Kidney failure: <15 mL/min/1.73sq m eGFR calculated using average adult body mass. Additional eGFR calculator available at: http://www.[employer]/multiple_crcl_2012.htm Glucose [Mass/Vol] 112 mg/dL High 70 - 99 mg/dL [place] Potassium [Moles/Vol] 3.1 mmol/L Low 3.7 - 5.3 mmol/L [place] Sodium [Moles/Vol] 144 mmol/L 135 - 144 mmol/L [place] Urea nitrogen [Mass/Vol] 5 mg/dL Low 6 - 20 mg/d L [place] Anion gap [Moles/Vol] 7 mmol/L Low 9 - 17 mmol/L [place] Bun/Cre Ratio NOT REPORTED [place] Calcium [Mass/Vol] 6.8 mg/dL Low 8.6 - 10. 4 mg/dL [place] Chloride [Moles/Vol] 114 mmol/L High 98 - 10 7 mmol/L [place] CO2 [Moles/Vol] 15 mmol/L Low 20 - 31 mmol/L [place] Creatinine [Mass/Vol] 0.47 mg/dL Low 0.5 - 0.9 mg/dL [place] GFR >60 >60 mL/min [place] GFR Non- >60 >60 mL/min [place] GFR/1.73 sq M predicted among non-blacks MDRD (S/P/Bld) [Vol rate/Area] [place] Comment on above: Average GFR for 20-2 9 years old: 116 mL/min/1.73sq m Chronic Kidney Disease: <60 mL/min/1.73sq m Kidney failure: <15 mL/min/1.73sq m eGFR calculated using average adult body mass. Additional eGFR calculator available at: http://www.[employer]/multiple_crcl_2011.htm GFR/1.73 sq M predicted among non-blacks MDRD (S/P/Bld) [Vol rate/Area] NOT REPORTED [place] Glucose [Mass/Vol] 230 mg/dL High 70 - 99 mg/dL [place] Potassium [Moles/Vol] 3.3 mmol/L Low 3.7 - 5.3 mmol/L [place] Sodium [Moles/Vol] 136 mmol/L 135 - 144 mmol/L [place] Urea nitrogen [Mass/Vol] 5 mg/dL Low 6 - 20 mg/d L [place] CBC WITH AUTO DIFFERENTIALon 08-01-2020 Basophils (Bld) [#/Vol] 10*3/uL [place] Basophils/100 WBC (Bld) 0 % 0 - 2 % [place] Differential Type NOT REPORTED [place] Eosinophils (Bld) [#/Vol] 0.05 10*3/uL [place] Eosinophils/100 WBC (Bld) 1 % 1 - 4 % [place] Erythrocyte distribution width (RBC) [Ratio] 14.6 % High 11.8 - 14.4 % [place] Hematocrit (Bld) [Volume fraction] 30.7 % Low 36.3 - 47.1 % [place] Hemoglobin (Bld) [Mass/Vol] 10.0 g/dL Low 11.9 - 15.1 g/dL [place] Immature granulocytes (Bld) [#/Vol] 10*3/uL [place] Immature granulocytes (Bld) [#/Vol] 0 % 0 [place] Interpretation and review of laboratory results Abnormal [place] Lymphocytes (Bld) [#/Vol] 1.79 10*3/uL [place] Lymphocytes/100 WBC (Bld) 28 % 24 - 43 % [place] MCH (RBC) [Entitic mass] 26.0 pg 25. 2 - 33.5 pg [place] MCHC (RBC) [Mass/Vol] 32.6 g/dL 28.4 - 34.8 g/dL [place] MCV (RBC) [Entitic vol] 79.9 fL Low 82.6 - 102.9 fL [place] Monocytes (Bld) [#/Vol] 0.27 10*3/uL [place] Monocytes/100 WBC (Bld) 4 % 3 - 12 % [place] Platelet mean volume (Bld) [Entitic vol] 10.0 fL 8.1 - 13.5 fL [place] Platelets (Bld) [#/Vol] NOT REPORTED [place] Platelets (Bld) [#/Vol] 130 10*3/uL [place] RBC (Bld) [#/Vol] 3.84 10*6/uL Low 3.95 - 5.1 1 m/uL [place] RBC morphology finding Nom (Bld) ANISOCYTOSIS PRESENT [place] Comment on above: MICROCYTOSIS PRESENT Segmented neutrophils/100 WBC (Bld) 67 % High 36 - 65 % [place] Segs Absolute 4.37 [place] WBC (Bld) [#/Vol] 0.0 10*3/uL 0.0 per 10 0 WBC [place] WBC (Bld) [#/Vol] 6.5 10*3/uL [place] WBC Morphology NOT REPORTED [place] EKG 12 [place] 08-01-2020 Atrial Rate 109 BPM [place] P [place] 23 degrees [place] P-R Interval 148 ms [place] Q-T Interval 424 ms [place] QRS Duration 78 ms [place] QTc Calculation (Bazett) 570 ms [place] R [place] 93 degrees [place] T [place] 111 degrees [place] Ventricular Rate 109 BPM [place] Wong, Mhpn Incoming [place] [facility] [place] 11:21 AM EST Sinus tachycardia Rightward axis Septal infarct , age undetermined ST & T wave abnormality, consider lateral ischemia Prolonged QT Abnormal ECG No previous ECGs available [place] Sinus tachycardia Rightward axis Septal infarct , age undetermined ST & T wave abnormality, consider lateral ischemia Prolonged QT Abnormal ECG No previous ECGs available [place] HEMOGLOBIN A1Con 08-01-2020 Glucose [Mass/Vol] 499 mg/dL [place] Comment on above: The ADA and AACC rec ommend providing the estimated average glucose result to permit better patient understanding of their HBA1c result. HbA1c (Bld) [Mass fraction] 19.0 % High 4 - 6 % [place] Interpretation and review of laboratory results Abnormal [place] Magnesiumon 08-01-2020 Magnesium [Mass/Vol] 1.7 mg/dL 1.6 - 2 .6 mg/dL [place] Magnesium [Mass/Vol] 2.0 mg/dL 1.6 - 2 .6 mg/dL [place] Magnesium [Mass/Vol] 1.7 mg/dL 1.6 - 2 .6 mg/dL [place] Magnesium [Mass/Vol] 2.0 mg/dL 1.6 - 2 .6 mg/dL [place] Magnesium [Mass/Vol] 1.8 mg/dL 1.6 - 2 .6 mg/dL [place] Otheron 08-01-2020 Interpretation and review of laboratory results Abnormal [place] Interpretation and review of laboratory results Abnormal [place] POC Glucose Fingerstickon Glucose [Mass/Vol] 174 mg/dL High 65 - 105 mg/dL [place] Interpretation and review of laboratory results Abnormal [place] Glucose [Mass/Vol] 187 mg/dL High 65 - 105 mg/dL [place] Interpretation and review of laboratory results Abnormal [place] Glucose [Mass/Vol] 104 mg/dL 65 - 105 mg/dL [place] Glucose [Mass/Vol] 295 mg/dL High 65 - 105 mg/dL [place] Interpretation and review of laboratory results Abnormal [place] , URINEon Beta HCG ( test) Ql (U) Negative NEGATIVE [place] Comment on above: Specimens with hCG l evels near the threshold of the test (25 mIU/mL) may give a negative or indeterminate result. In such cases, another test should be performed with a new specimen in 48-72 hours. If early is suspected clinically in this setting, correlation with quantitative serum b-hCG level is suggested. Phosphoruson 08-01-2020 Phosphate [Mass/Vol] 2.7 mg/dL 2.6 - 4 .5 mg/dL [place] Phosphate [Mass/Vol] 2.7 mg/dL 2.6 - 4 .5 mg/dL [place] Phosphate [Mass/Vol] 2.9 mg/dL 2.6 - 4 .5 mg/dL [place] Phosphate [Mass/Vol] 2.2 mg/dL Low 2.6 - 4 .5 mg/dL [place] Phosphate [Mass/Vol] 1.6 mg/dL Low 2.6 - 4 .5 mg/dL [place] Anion Gap (Calc) POCon 07-31 Anion gap [Moles/Vol] 17 mmol/L High 7 - 16 mmol/L [place] Arterial Blood Gas, POCon Cami Test NOT REPORTED [place] aPTT Coag (Bld) [Time] NOT REPORTED [place] FIO2 30.0 [place] Mode PRVC [place] Negative Base Excess, Art 28 High [place] O2 Device/Flow/% Adult Ventilator [place] Oxygen saturation in Blood 88 % Low 94 - 98 % [place] POC HCO3 3.5 mmol/L Critically low 21 - 28 mmol/L [place] POC pCO2 18.0 Low [place] POC pCO2 Temp NOT REPORTED mm Hg [place] POC pH 6.893 Critically low [place] POC pH Temp NOT REPORTED [place] POC PO2 88.9 [place] POC pO2 Temp NOT REPORTED mm Hg [place] Positive Base Excess, Art NOT REPORTED [place] Sample Site Arterial Line [place] TCO2 (calc), Art <5 Low 22 - 29 mmol/L [place] Basic Metabolic Panelon 02-0 Anion gap [Moles/Vol] 11 mmol/L 9 - 17 mmol/L [place] Bun/Cre Ratio NOT REPORTED [place] Calcium [Mass/Vol] 7.4 mg/dL Low 8.6 - 10. 4 mg/dL [place] Chloride [Moles/Vol] 113 mmol/L High 98 - 10 7 mmol/L [place] CO2 [Moles/Vol] 14 mmol/L Low 20 - 31 mmol/L [place] Creatinine [Mass/Vol] 0.49 mg/dL Low 0.5 - 0.9 mg/dL [place] GFR >60 >60 mL/min [place] GFR Non- >60 >60 mL/min [place] GFR/1.73 sq M predicted among non-blacks MDRD (S/P/Bld) [Vol rate/Area] NOT REPORTED [place] GFR/1.73 sq M predicted among non-blacks MDRD (S/P/Bld) [Vol rate/Area] [place] Comment on above: Average GFR for 20-2 9 years old: 116 mL/min/1.73sq m Chronic Kidney Disease: <60 mL/min/1.73sq m Kidney failure: <15 mL/min/1.73sq m eGFR calculated using average adult body mass. Additional eGFR calculator available at: http://www.Zipalong/multiple_crcl_2012.htm Glucose [Mass/Vol] 262 mg/dL High 70 - 99 mg/dL [place] Potassium [Moles/Vol] 3.5 mmol/L Low 3.7 - 5.3 mmol/L [place] Sodium [Moles/Vol] 138 mmol/L 135 - 144 mmol/L [place] Urea nitrogen [Mass/Vol] 6 mg/dL 6 - 20 mg/d L [place] Anion gap [Moles/Vol] 9 mmol/L 9 - 17 mmol/L [place] Bun/Cre Ratio NOT REPORTED [place] Calcium [Mass/Vol] 7.8 mg/dL Low 8.6 - 10. 4 mg/dL [place] Chloride [Moles/Vol] 112 mmol/L High 98 - 10 7 mmol/L [place] CO2 [Moles/Vol] 15 mmol/L Low 20 - 31 mmol/L [place] Creatinine [Mass/Vol] 0.5 mg/dL 0.5 - 0.9 mg/dL [place] GFR >60 >60 mL/min [place] GFR Non- >60 >60 mL/min [place] GFR/1.73 sq M predicted among non-blacks MDRD (S/P/Bld) [Vol rate/Area] NOT REPORTED [place] GFR/1.73 sq M predicted among non-blacks MDRD (S/P/Bld) [Vol rate/Area] [place] Comment on above: Average GFR for 20-2 9 years old: 116 mL/min/1.73sq m Chronic Kidney Disease: <60 mL/min/1.73sq m Kidney failure: <15 mL/min/1.73sq m eGFR calculated using average adult body mass. Additional eGFR calculator available at: http://www.Zipalong/multiple_crcl_2012.htm Glucose [Mass/Vol] 138 mg/dL High 70 - 99 mg/dL [place] Potassium [Moles/Vol] 3.5 mmol/L Low 3.7 - 5.3 mmol/L [place] Sodium [Moles/Vol] 136 mmol/L 135 - 144 mmol/L [place] Urea nitrogen [Mass/Vol] 6 mg/dL 6 - 20 mg/d L [place] Anion gap [Moles/Vol] 12 mmol/L 9 - 17 mmol/L [place] Bun/Cre Ratio NOT REPORTED [place] Calcium [Mass/Vol] 6.9 mg/dL Low 8.6 - 10. 4 mg/dL [place] Chloride [Moles/Vol] 113 mmol/L High 98 - 10 7 mmol/L [place] CO2 [Moles/Vol] 10 mmol/L Low 20 - 31 mmol/L [place] Creatinine [Mass/Vol] 0.57 mg/dL 0.5 - 0.9 mg/dL [place] GFR >60 >60 mL/min [place] GFR Non- >60 >60 mL/min [place] GFR/1.73 sq M predicted among non-blacks MDRD (S/P/Bld) [Vol rate/Area] NOT REPORTED [place] GFR/1.73 sq M predicted among non-blacks MDRD (S/P/Bld) [Vol rate/Area] [place] Comment on above: Average GFR for 20-2 9 years old: 116 mL/min/1.73sq m Chronic Kidney Disease: <60 mL/min/1.73sq m Kidney failure: <15 mL/min/1.73sq m eGFR calculated using average adult body mass. Additional eGFR calculator available at: http://www.Zipalong/multiple_crcl_2012.htm Glucose [Mass/Vol] 418 mg/dL Critically high 70 - 9 9 mg/dL [place] Potassium [Moles/Vol] 3.9 mmol/L 3.7 - 5.3 mmol/L [place] Comment on above: SPECIMEN SLIGHTLY HE MOLYZED, RESULTS MAY BE ADVERSELY AFFECTED. Sodium [Moles/Vol] 135 mmol/L 135 - 144 mmol/L [place] Urea nitrogen [Mass/Vol] 7 mg/dL 6 - 20 mg/d L [place] Anion gap [Moles/Vol] 8 mmol/L Low 9 - 17 mmol/L [place] Bun/Cre Ratio NOT REPORTED [place] Calcium [Mass/Vol] 7.0 mg/dL Low 8.6 - 10. 4 mg/dL [place] Chloride [Moles/Vol] 115 mmol/L High 98 - 10 7 mmol/L [place] CO2 [Moles/Vol] 15 mmol/L Low 20 - 31 mmol/L [place] Creatinine [Mass/Vol] 0.53 mg/dL 0.5 - 0.9 mg/dL [place] GFR >60 >60 mL/min [place] GFR Non- >60 >60 mL/min [place] GFR/1.73 sq M predicted among non-blacks MDRD (S/P/Bld) [Vol rate/Area] [place] Comment on above: Average GFR for 20-2 9 years old: 116 mL/min/1.73sq m Chronic Kidney Disease: <60 mL/min/1.73sq m Kidney failure: <15 mL/min/1.73sq m eGFR calculated using average adult body mass. Additional eGFR calculator available at: http://www.Debitos.Zeenshare/multiple_crcl_2012.htm GFR/1.73 sq M predicted among non-blacks MDRD (S/P/Bld) [Vol rate/Area] NOT REPORTED [place] Glucose [Mass/Vol] 150 mg/dL High 70 - 99 mg/dL [place] Potassium [Moles/Vol] 3.3 mmol/L Low 3.7 - 5.3 mmol/L [place] Sodium [Moles/Vol] 138 mmol/L 135 - 144 mmol/L [place] Urea nitrogen [Mass/Vol] 9 mg/dL 6 - 20 mg/d L [place] Anion gap [Moles/Vol] 7 mmol/L Low 9 - 17 mmol/L [place] Bun/Cre Ratio NOT REPORTED [place] Calcium [Mass/Vol] 6.8 mg/dL Low 8.6 - 10. 4 mg/dL [place] Chloride [Moles/Vol] 114 mmol/L High 98 - 10 7 mmol/L [place] CO2 [Moles/Vol] 16 mmol/L Low 20 - 31 mmol/L [place] Creatinine [Mass/Vol] 0.51 mg/dL 0.5 - 0.9 mg/dL [place] GFR >60 >60 mL/min [place] GFR Non- >60 >60 mL/min [place] GFR/1.73 sq M predicted among non-blacks MDRD (S/P/Bld) [Vol rate/Area] [place] Comment on above: Average GFR for 20-2 9 years old: 116 mL/min/1.73sq m Chronic Kidney Disease: <60 mL/min/1.73sq m Kidney failure: <15 mL/min/1.73sq m eGFR calculated using average adult body mass. Additional eGFR calculator available at: http://www.Debitos.Zeenshare/multiple_crcl_2012.htm GFR/1.73 sq M predicted among non-blacks MDRD (S/P/Bld) [Vol rate/Area] NOT REPORTED [place] Glucose [Mass/Vol] 190 mg/dL High 70 - 99 mg/dL [place] Potassium [Moles/Vol] 3.7 mmol/L 3.7 - 5.3 mmol/L [place] Sodium [Moles/Vol] 137 mmol/L 135 - 144 mmol/L [place] Urea nitrogen [Mass/Vol] 11 mg/dL 6 - 20 mg/d L [place] Anion gap [Moles/Vol] 6 mmol/L Low 9 - 17 mmol/L [place] Bun/Cre Ratio NOT REPORTED [place] Calcium [Mass/Vol] 6.9 mg/dL Low 8.6 - 10. 4 mg/dL [place] Chloride [Moles/Vol] 115 mmol/L High 98 - 10 7 mmol/L [place] CO2 [Moles/Vol] 17 mmol/L Low 20 - 31 mmol/L [place] Creatinine [Mass/Vol] 0.56 mg/dL 0.5 - 0.9 mg/dL [place] GFR >60 >60 mL/min [place] GFR Non- >60 >60 mL/min [place] GFR/1.73 sq M predicted among non-blacks MDRD (S/P/Bld) [Vol rate/Area] NOT REPORTED [place] GFR/1.73 sq M predicted among non-blacks MDRD (S/P/Bld) [Vol rate/Area] [place] Comment on above: Average GFR for 20-2 9 years old: 116 mL/min/1.73sq m Chronic Kidney Disease: <60 mL/min/1.73sq m Kidney failure: <15 mL/min/1.73sq m eGFR calculated using average adult body mass. Additional eGFR calculator available at: http://www.Debitos.Zeenshare/multiple_crcl_2012.htm Glucose [Mass/Vol] 180 mg/dL High 70 - 99 mg/dL [place] Potassium [Moles/Vol] 3.9 mmol/L 3.7 - 5.3 mmol/L [place] Sodium [Moles/Vol] 138 mmol/L 135 - 144 mmol/L [place] Urea nitrogen [Mass/Vol] 11 mg/dL 6 - 20 mg/d L [place] CALCIUM, IONIC (POC)on 07-31 POC Ionized Calcium 1.07 mmol/L Low 1.15 - 1 .33 mmol/L [place] CHLORIDE (POC)on 07-31-2020 Chloride [Moles/Vol] 116 mmol/L High 98 - 10 7 mmol/L [place] Creatinine W/GFR Point of Ca reon 07-31-2020 Creatinine [Mass/Vol] 0.78 mg/dL 0.51 - 1.19 mg/dL [place] GFR Non- >60 >60 mL/min [place] GFR/1.73 sq M predicted among non-blacks MDRD (S/P/Bld) [Vol rate/Area] mL/min/{1.73_m2} >60 mL/min [place] GFR/1.73 sq M predicted among non-blacks MDRD (S/P/Bld) [Vol rate/Area] [place] Comment on above: Average GFR for 20-2 9 years old: 116 mL/min/1.73sq m Chronic Kidney Disease: <60 mL/min/1.73sq m Kidney failure: <15 mL/min/1.73sq m eGFR calculated using average adult body mass. Additional eGFR calculator available at: http://www.Zipalong/multiple_crcl_2012.htm Hemoglobin and hematocrit, b loodon 07-31-2020 Hematocrit (Bld) [Volume fraction] 44 % 36 - 46 % [place] Hemoglobin (Bld) [Mass/Vol] 14.9 g/dL 12 - 16 g/dL [place] Lactic Acid, POCon POC Lactic Acid 0.60 mmol/L 0.56 - 1.39 mmol/L [place] Magnesiumon 07-31-2020 Magnesium [Mass/Vol] 1.9 mg/dL 1.6 - 2 .6 mg/dL [place] Magnesium [Mass/Vol] 2.2 mg/dL 1.6 - 2 .6 mg/dL [place] Magnesium [Mass/Vol] 1.4 mg/dL Low 1.6 - 2 .6 mg/dL [place] Magnesium [Mass/Vol] 1.7 mg/dL 1.6 - 2 .6 mg/dL [place] Magnesium [Mass/Vol] 1.7 mg/dL 1.6 - 2 .6 mg/dL [place] Magnesium [Mass/Vol] 1.8 mg/dL 1.6 - 2 .6 mg/dL [place] Otheron 07-31-2020 Interpretation and review of laboratory results Abnormal [place] Interpretation and review of laboratory results Abnormal [place] Interpretation and review of laboratory results Abnormal [place] Interpretation and review of laboratory results Abnormal [place] Interpretation and review of laboratory results Abnormal [place] Interpretation and review of laboratory results Abnormal [place] Interpretation and review of laboratory results Abnormal [place] POC Glucose Fingerstickon Glucose [Mass/Vol] 201 mg/dL High 65 - 105 mg/dL [place] Interpretation and review of laboratory results Abnormal [place] Glucose [Mass/Vol] 162 mg/dL High 65 - 105 mg/dL [place] Interpretation and review of laboratory results Abnormal [place] Glucose [Mass/Vol] 124 mg/dL High 65 - 105 mg/dL [place] Interpretation and review of laboratory results Abnormal [place] Glucose [Mass/Vol] 117 mg/dL High 65 - 105 mg/dL [place] Interpretation and review of laboratory results Abnormal [place] Glucose [Mass/Vol] 137 mg/dL High 65 - 105 mg/dL [place] Interpretation and review of laboratory results Abnormal [place] Glucose [Mass/Vol] 173 mg/dL High 65 - 105 mg/dL [place] Interpretation and review of laboratory results Abnormal [place] Glucose [Mass/Vol] 266 mg/dL High 65 - 105 mg/dL [place] Interpretation and review of laboratory results Abnormal [place] Glucose [Mass/Vol] 320 mg/dL High 65 - 105 mg/dL [place] Interpretation and review of laboratory results Abnormal [place] Glucose [Mass/Vol] 400 mg/dL High 65 - 105 mg/dL [place] Interpretation and review of laboratory results Abnormal [place] Glucose [Mass/Vol] 157 mg/dL High 65 - 105 mg/dL [place] Interpretation and review of laboratory results Abnormal [place] Glucose [Mass/Vol] 130 mg/dL High 65 - 105 mg/dL [place] Interpretation and review of laboratory results Abnormal [place] Glucose [Mass/Vol] 139 mg/dL High 65 - 105 mg/dL [place] Interpretation and review of laboratory results Abnormal [place] Glucose [Mass/Vol] 156 mg/dL High 65 - 105 mg/dL [place] Interpretation and review of laboratory results Abnormal [place] Glucose [Mass/Vol] 193 mg/dL High 65 - 105 mg/dL [place] Interpretation and review of laboratory results Abnormal [place] Glucose [Mass/Vol] 207 mg/dL High 65 - 105 mg/dL [place] Interpretation and review of laboratory results Abnormal [place] Glucose [Mass/Vol] 211 mg/dL High 65 - 105 mg/dL [place] Interpretation and review of laboratory results Abnormal [place] Glucose [Mass/Vol] 167 mg/dL High 65 - 105 mg/dL [place] Interpretation and review of laboratory results Abnormal [place] Glucose [Mass/Vol] 145 mg/dL High 65 - 105 mg/dL [place] Interpretation and review of laboratory results Abnormal [place] Glucose [Mass/Vol] 156 mg/dL High 65 - 105 mg/dL [place] Interpretation and review of laboratory results Abnormal [place] Glucose [Mass/Vol] 171 mg/dL High 65 - 105 mg/dL [place] Interpretation and review of laboratory results Abnormal [place] Glucose [Mass/Vol] 165 mg/dL High 65 - 105 mg/dL [place] Interpretation and review of laboratory results Abnormal [place] Glucose [Mass/Vol] 144 mg/dL High 65 - 105 mg/dL [place] Interpretation and review of laboratory results Abnormal [place] POCT Glucoseon 07-31-2020 Glucose [Mass/Vol] 372 mg/dL High 74 - 100 mg/dL [place] POTASSIUM (POC)on 07-31-2020 Potassium [Moles/Vol] 3.9 mmol/L 3.5 - 4.5 mmol/L [place] Phosphoruson 07-31-2020 Phosphate [Mass/Vol] 1.9 mg/dL Low 2.6 - 4 .5 mg/dL [place] Phosphate [Mass/Vol] 1.7 mg/dL Low 2.6 - 4 .5 mg/dL [place] Phosphate [Mass/Vol] 1.8 mg/dL Low 2.6 - 4 .5 mg/dL [place] Phosphate [Mass/Vol] 1.5 mg/dL Low 2.6 - 4 .5 mg/dL [place] Phosphate [Mass/Vol] 1.7 mg/dL Low 2.6 - 4 .5 mg/dL [place] Phosphate [Mass/Vol] 1.5 mg/dL Low 2.6 - 4 .5 mg/dL [place] SODIUM (POC)on 07-31-2020 Sodium [Moles/Vol] 136 mmol/L Low 138 - 146 mmol/L [place] Acetaminophen Levelon 2020 Acetaminophen [Mass/Vol] <5 Low 10 - 30 ug/mL [place] Interpretation and review of laboratory results Abnormal [place] Arterial Blood Gas, POCon Cami Test NOT REPORTED [place] aPTT Coag (Bld) [Time] NOT REPORTED [place] FIO2 35.0 [place] Interpretation and review of laboratory results Abnormal [place] Mode NOT REPORTED [place] Negative Base Excess, Art 10 High [place] O2 Device/Flow/% BIPAP [place] Oxygen saturation in Blood 98 % 94 - 98 % [place] POC HCO3 12.9 mmol/L Low 21 - 28 mmol/L [place] POC pCO2 20.8 Low [place] POC pCO2 Temp NOT REPORTED mm Hg [place] POC pH 7.402 [place] POC pH Temp NOT REPORTED [place] POC PO2 98.2 [place] POC pO2 Temp NOT REPORTED mm Hg [place] Positive Base Excess, Art NOT REPORTED [place] Sample Site Arterial Line [place] TCO2 (calc), Art 14 mmol/L Low 22 - 29 mmol/L [place] Cami Test NOT REPORTED [place] aPTT Coag (Bld) [Time] 37.1 s [place] FIO2 40.0 [place] Mode Bi-Level Ventilation [place] Negative Base Excess, Art 16 High [place] O2 Device/Flow/% BIPAP [place] Oxygen saturation in Blood 96 % 94 - 98 % [place] POC HCO3 7.0 mmol/L Critically low 21 - 28 mmol/L [place] POC pCO2 14.0 Low [place] POC pCO2 Temp NOT REPORTED mm Hg [place] POC pH 7.310 Low [place] POC pH Temp NOT REPORTED [place] POC PO2 86.1 [place] POC pO2 Temp NOT REPORTED mm Hg [place] Positive Base Excess, Art NOT REPORTED [place] Sample Site Arterial Line [place] TCO2 (calc), Art 7 mmol/L Low 22 - 29 mmol/L [place] Cami Test NOT REPORTED [place] aPTT Coag (Bld) [Time] 36.3 s [place] FIO2 50.0 [place] Mode Bi-Level Ventilation [place] Negative Base Excess, Art 22 High [place] O2 Device/Flow/% BIPAP [place] Oxygen saturation in Blood 96 % 94 - 98 % [place] POC HCO3 5.2 mmol/L Critically low 21 - 28 mmol/L [place] POC pCO2 16.0 Low [place] POC pCO2 Temp NOT REPORTED mm Hg [place] POC pH 7.123 Critically low [place] POC pH Temp NOT REPORTED [place] POC PO2 109.8 High [place] POC pO2 Temp NOT REPORTED mm Hg [place] Positive Base Excess, Art NOT REPORTED [place] Sample Site Arterial Line [place] TCO2 (calc), Art 6 mmol/L Low 22 - 29 mmol/L [place] Cami Test NOT REPORTED [place] aPTT Coag (Bld) [Time] 36.1 s [place] FIO2 30.0 [place] Mode NOT REPORTED [place] Negative Base Excess, Art 24 High [place] O2 Device/Flow/% Adult Ventilator [place] Oxygen saturation in Blood 89 % Low 94 - 98 % [place] POC HCO3 4.3 mmol/L Critically low 21 - 28 mmol/L [place] POC pCO2 14.4 Low [place] POC pCO2 Temp NOT REPORTED mm Hg [place] POC pH 7.082 Critically low [place] POC pH Temp NOT REPORTED [place] POC PO2 75.9 Low [place] POC pO2 Temp NOT REPORTED mm Hg [place] Positive Base Excess, Art NOT REPORTED [place] Sample Site Arterial Line [place] TCO2 (calc), Art <5 Low 22 - 29 mmol/L [place] Basic Metabolic Panelon 07-02 Anion gap [Moles/Vol] 5 mmol/L Low 9 - 17 mmol/L [place] Bun/Cre Ratio NOT REPORTED [place] Calcium [Mass/Vol] 6.9 mg/dL Low 8.6 - 10. 4 mg/dL [place] Chloride [Moles/Vol] 113 mmol/L High 98 - 10 7 mmol/L [place] CO2 [Moles/Vol] 17 mmol/L Low 20 - 31 mmol/L [place] Creatinine [Mass/Vol] 0.51 mg/dL 0.5 - 0.9 mg/dL [place] GFR >60 >60 mL/min [place] GFR Non- >60 >60 mL/min [place] GFR/1.73 sq M predicted among non-blacks MDRD (S/P/Bld) [Vol rate/Area] NOT REPORTED [place] GFR/1.73 sq M predicted among non-blacks MDRD (S/P/Bld) [Vol rate/Area] [place] Comment on above: Average GFR for 20-2 9 years old: 116 mL/min/1.73sq m Chronic Kidney Disease: <60 mL/min/1.73sq m Kidney failure: <15 mL/min/1.73sq m eGFR calculated using average adult body mass. Additional eGFR calculator available at: http://www.Zipalong/multiple_crcl_2012.htm Glucose [Mass/Vol] 175 mg/dL High 70 - 99 mg/dL [place] Potassium [Moles/Vol] 3.4 mmol/L Low 3.7 - 5.3 mmol/L [place] Sodium [Moles/Vol] 135 mmol/L 135 - 144 mmol/L [place] Urea nitrogen [Mass/Vol] 14 mg/dL 6 - 20 mg/d L [place] Anion gap [Moles/Vol] 6 mmol/L Low 9 - 17 mmol/L [place] Bun/Cre Ratio NOT REPORTED [place] Calcium [Mass/Vol] 7.1 mg/dL Low 8.6 - 10. 4 mg/dL [place] Chloride [Moles/Vol] 115 mmol/L High 98 - 10 7 mmol/L [place] CO2 [Moles/Vol] 18 mmol/L Low 20 - 31 mmol/L [place] Creatinine [Mass/Vol] 0.59 mg/dL 0.5 - 0.9 mg/dL [place] GFR >60 >60 mL/min [place] GFR Non- >60 >60 mL/min [place] GFR/1.73 sq M predicted among non-blacks MDRD (S/P/Bld) [Vol rate/Area] NOT REPORTED [place] GFR/1.73 sq M predicted among non-blacks MDRD (S/P/Bld) [Vol rate/Area] [place] Comment on above: Average GFR for 20-2 9 years old: 116 mL/min/1.73sq m Chronic Kidney Disease: <60 mL/min/1.73sq m Kidney failure: <15 mL/min/1.73sq m eGFR calculated using average adult body mass. Additional eGFR calculator available at: http://www.Zipalong/multiple_crcl_2012.htm Glucose [Mass/Vol] 113 mg/dL High 70 - 99 mg/dL [place] Potassium [Moles/Vol] 3.2 mmol/L Low 3.7 - 5.3 mmol/L [place] Sodium [Moles/Vol] 139 mmol/L 135 - 144 mmol/L [place] Urea nitrogen [Mass/Vol] 17 mg/dL 6 - 20 mg/d L [place] Anion gap [Moles/Vol] 9 mmol/L 9 - 17 mmol/L [place] Bun/Cre Ratio NOT REPORTED [place] Calcium [Mass/Vol] 7.0 mg/dL Low 8.6 - 10. 4 mg/dL [place] Chloride [Moles/Vol] 114 mmol/L High 98 - 10 7 mmol/L [place] CO2 [Moles/Vol] 17 mmol/L Low 20 - 31 mmol/L [place] Creatinine [Mass/Vol] 0.78 mg/dL 0.5 - 0.9 mg/dL [place] GFR >60 >60 mL/min [place] GFR Non- >60 >60 mL/min [place] GFR/1.73 sq M predicted among non-blacks MDRD (S/P/Bld) [Vol rate/Area] [place] Comment on above: Average GFR for 20-2 9 years old: 116 mL/min/1.73sq m Chronic Kidney Disease: <60 mL/min/1.73sq m Kidney failure: <15 mL/min/1.73sq m eGFR calculated using average adult body mass. Additional eGFR calculator available at: http://www.Zipalong/multiple_crcl_2012.htm GFR/1.73 sq M predicted among non-blacks MDRD (S/P/Bld) [Vol rate/Area] NOT REPORTED [place] Glucose [Mass/Vol] 132 mg/dL High 70 - 99 mg/dL [place] Potassium [Moles/Vol] 3.1 mmol/L Low 3.7 - 5.3 mmol/L [place] Sodium [Moles/Vol] 140 mmol/L 135 - 144 mmol/L [place] Urea nitrogen [Mass/Vol] 20 mg/dL 6 - 20 mg/d L [place] Anion gap [Moles/Vol] 9 mmol/L 9 - 17 mmol/L [place] Bun/Cre Ratio NOT REPORTED [place] Calcium [Mass/Vol] 7.1 mg/dL Low 8.6 - 10. 4 mg/dL [place] Chloride [Moles/Vol] 113 mmol/L High 98 - 10 7 mmol/L [place] CO2 [Moles/Vol] 17 mmol/L Low 20 - 31 mmol/L [place] Creatinine [Mass/Vol] 0.81 mg/dL 0.5 - 0.9 mg/dL [place] GFR >60 >60 mL/min [place] GFR Non- >60 >60 mL/min [place] GFR/1.73 sq M predicted among non-blacks MDRD (S/P/Bld) [Vol rate/Area] [place] Comment on above: Average GFR for 20-2 9 years old: 116 mL/min/1.73sq m Chronic Kidney Disease: <60 mL/min/1.73sq m Kidney failure: <15 mL/min/1.73sq m eGFR calculated using average adult body mass. Additional eGFR calculator available at: http://www.Zipalong/multiple_crcl_2012.htm GFR/1.73 sq M predicted among non-blacks MDRD (S/P/Bld) [Vol rate/Area] NOT REPORTED [place] Glucose [Mass/Vol] 238 mg/dL High 70 - 99 mg/dL [place] Potassium [Moles/Vol] 2.4 mmol/L Critically low 3.7 - 5.3 mmol/L [place] Sodium [Moles/Vol] 139 mmol/L 135 - 144 mmol/L [place] Urea nitrogen [Mass/Vol] 23 mg/dL High 6 - 20 mg/d L [place] Anion gap [Moles/Vol] 23 mmol/L High 9 - 17 mmol/L [place] Bun/Cre Ratio NOT REPORTED [place] Calcium [Mass/Vol] 7.2 mg/dL Low 8.6 - 10. 4 mg/dL [place] Chloride [Moles/Vol] 111 mmol/L High 98 - 10 7 mmol/L [place] CO2 [Moles/Vol] 8 mmol/L Critically low 20 - 31 mmol/L [place] Creatinine [Mass/Vol] 1.08 mg/dL High 0.5 - 0.9 mg/dL [place] GFR >60 >60 mL/min [place] GFR Non- >60 >60 mL/min [place] GFR/1.73 sq M predicted among non-blacks MDRD (S/P/Bld) [Vol rate/Area] [place] Comment on above: Average GFR for 20-2 9 years old: 116 mL/min/1.73sq m Chronic Kidney Disease: <60 mL/min/1.73sq m Kidney failure: <15 mL/min/1.73sq m eGFR calculated using average adult body mass. Additional eGFR calculator available at: http://www.Zipalong/multiple_crcl_2012.htm GFR/1.73 sq M predicted among non-blacks MDRD (S/P/Bld) [Vol rate/Area] NOT REPORTED [place] Glucose [Mass/Vol] 322 mg/dL High 70 - 99 mg/dL [place] Potassium [Moles/Vol] 3.8 mmol/L 3.7 - 5.3 mmol/L [place] Sodium [Moles/Vol] 142 mmol/L 135 - 144 mmol/L [place] Urea nitrogen [Mass/Vol] 28 mg/dL High 6 - 20 mg/d L [place] Anion gap [Moles/Vol] Unable to calculat e anion gap due to CO2 less than 6. 9 - 17 mmol/L [place] Bun/Cre Ratio NOT REPORTED [place] Calcium [Mass/Vol] 6.9 mg/dL Low 8.6 - 10. 4 mg/dL [place] Chloride [Moles/Vol] 109 mmol/L High 98 - 10 7 mmol/L [place] CO2 [Moles/Vol] mmol/L Critically low 20 - 31 mmol/L [place] Creatinine [Mass/Vol] 0.89 mg/dL 0.5 - 0.9 mg/dL [place] GFR >60 >60 mL/min [place] GFR Non- >60 >60 mL/min [place] GFR/1.73 sq M predicted among non-blacks MDRD (S/P/Bld) [Vol rate/Area] NOT REPORTED [place] GFR/1.73 sq M predicted among non-blacks MDRD (S/P/Bld) [Vol rate/Area] [place] Comment on above: Average GFR for 20-2 9 years old: 116 mL/min/1.73sq m Chronic Kidney Disease: <60 mL/min/1.73sq m Kidney failure: <15 mL/min/1.73sq m eGFR calculated using average adult body mass. Additional eGFR calculator available at: http://www.Debitos.Zeenshare/multiple_crcl_2012.htm Glucose [Mass/Vol] 275 mg/dL High 70 - 99 mg/dL [place] Interpretation and review of laboratory results Abnormal [place] Potassium [Moles/Vol] 3.4 mmol/L Low 3.7 - 5.3 mmol/L [place] Sodium [Moles/Vol] 139 mmol/L 135 - 144 mmol/L [place] Urea nitrogen [Mass/Vol] 29 mg/dL High 6 - 20 mg/d L [place] CBC WITH AUTO DIFFERENTIALon 07-30-2020 Basophils (Bld) [#/Vol] 0.00 10*3/uL [place] Basophils/100 WBC (Bld) 0 % 0 - 2 % [place] Differential Type NOT REPORTED [place] Eosinophils (Bld) [#/Vol] 0.00 10*3/uL [place] Eosinophils/100 WBC (Bld) 0 % Low 1 - 4 % [place] Erythrocyte distribution width (RBC) [Ratio] 13.2 % 11.8 - 14.4 % [place] Hematocrit (Bld) [Volume fraction] 38.1 % 36.3 - 47.1 % [place] Hemoglobin (Bld) [Mass/Vol] 12.9 g/dL 11.9 - 15.1 g/dL [place] Immature granulocytes (Bld) [#/Vol] 2 % High 0 [place] Immature granulocytes (Bld) [#/Vol] 0.28 10*3/uL [place] Interpretation and review of laboratory results Abnormal [place] Lymphocytes (Bld) [#/Vol] 0.70 10*3/uL [place] Lymphocytes/100 WBC (Bld) 5 % Low 24 - 43 % [place] MCH (RBC) [Entitic mass] 26.2 pg 25. 2 - 33.5 pg [place] MCHC (RBC) [Mass/Vol] 33.9 g/dL 28.4 - 34.8 g/dL [place] MCV (RBC) [Entitic vol] 77.3 fL Low 82.6 - 102.9 fL [place] Monocytes (Bld) [#/Vol] 0.56 10*3/uL [place] Monocytes/100 WBC (Bld) 4 % 3 - 12 % [place] Morphology Calvin (Bld) [Interp] MICROCYTOSIS PRESENT [place] Morphology Calvin (Bld) [Interp] ANISOCYTOSIS PRESENT [place] Platelet mean volume (Bld) [Entitic vol] 9.8 fL 8.1 - 13.5 fL [place] Platelets (Bld) [#/Vol] 228 10*3/uL [place] Platelets (Bld) [#/Vol] NOT REPORTED [place] RBC (Bld) [#/Vol] 4.93 10*6/uL 3.95 - 5.1 1 m/uL [place] RBC morphology finding Nom (Bld) NOT REPORTED [place] Segmented neutrophils/100 WBC (Bld) 89 % High 36 - 65 % [place] Segs Absolute 12.36 High [place] WBC (Bld) [#/Vol] 0.0 10*3/uL 0.0 per 10 0 WBC [place] WBC (Bld) [#/Vol] 13.9 10*3/uL [place] WBC Morphology NOT REPORTED [place] Ethanolon 07-30-2020 Ethanol [Mass/Vol] mg/dL <10 mg/dL [place] Ethanol percent <0.010 <0.010 % [place] Hepatic Function Panelon Albumin [Mass/Vol] 3 g/dL Low 3.5 - 5.2 g/dL [place] Albumin/Globulin [Mass ratio] 1.3 {ratio} [place] ALP [Catalytic activity/Vol] 103 U/L 35 - 104 U/L [place] ALT [Catalytic activity/Vol] 16 U/L 5 - 33 U/L [place] AST [Catalytic activity/Vol] 39 U/L High <32 [place] Bilirubin Ql (U) <0.10 Low 0.3 - 1.2 mg/dL [place] Bilirubin, Indirect CANNOT BE CALCULATED 0 - 1 mg/dL [place] Bilirubin.direct [Mass/Vol] mg/dL <0.31 mg/dL [place] Globulin (S) [Mass/Vol] NOT REPORTED 1.5 - 3.8 g/dL [place] Interpretation and review of laboratory results Abnormal [place] Protein [Mass/Vol] 5.3 g/dL Low 6.4 - 8.3 g/dL [place] Lactic Acid, POCon POC Lactic Acid 0.87 mmol/L 0.56 - 1.39 mmol/L [place] POC Lactic Acid 0.80 mmol/L 0.56 - 1.39 mmol/L [place] POC Lactic Acid 0.79 mmol/L 0.56 - 1.39 mmol/L [place] Lipaseon 07-30-2020 Lipase [Catalytic activity/Vol] 24 U/L 13 - 60 U/L [place] MRSA by PCRon 07-30-2020 Direct Exam POSITIVE: MRSA DNA detected by nucleic acid amplification. Results should be used as an adjunct to nosocomial control efforts to identify patients needing enhanced precautions. The test is not intended to identify patients with staphylococcal infections. Results should not be used to guide or monitor treatment for MRSA infections. Abnormal [place] Interpretation and review of laboratory results Abnormal [place] Special Requests NOT REPORTED [place] Specimen Description .NASAL SWAB [place] Magnesiumon 07-30-2020 Magnesium [Mass/Vol] 1.6 mg/dL 1.6 - 2 .6 mg/dL [place] Magnesium [Mass/Vol] 1.8 mg/dL 1.6 - 2 .6 mg/dL [place] Magnesium [Mass/Vol] 2.0 mg/dL 1.6 - 2 .6 mg/dL [place] Magnesium [Mass/Vol] 2.0 mg/dL 1.6 - 2 .6 mg/dL [place] Magnesium [Mass/Vol] 1.6 mg/dL 1.6 - 2 .6 mg/dL [place] Magnesium [Mass/Vol] 1.6 mg/dL 1.6 - 2 .6 mg/dL [place] Microscopic Urinalysison Amorphous, UA 1+ Abnormal None [place] Bacteria, UA NOT REPORTED None [place] Casts UA HYALINE [place] Casts UA 0 TO 2 [place] Crystals, UA NOT REPORTED None /HPF [place] Epithelial Cells UA 5 TO 10 [place] Interpretation and review of laboratory results Abnormal [place] Mucus, UA NOT REPORTED None [place] Other Observations UA NOT REPORTED NOT REQ. [place] RBC (U) [#/Vol] 0 TO 2 [place] Renal Epithelial, UA NOT REPORTED 0 /HPF [place] Trichomonas, UA NOT REPORTED None [place] WBC, UA 2 TO 5 [place] Yeast, UA NOT REPORTED None [place] Otheron 07-30-2020 Interpretation and review of laboratory results Abnormal [place] Interpretation and review of laboratory results Abnormal [place] Interpretation and review of laboratory results Abnormal [place] Interpretation and review of laboratory results Abnormal [place] Interpretation and review of laboratory results Abnormal [place] Interpretation and review of laboratory results Abnormal [place] Interpretation and review of laboratory results Abnormal [place] Interpretation and review of laboratory results Abnormal [place] POC Glucose Fingerstickon Glucose [Mass/Vol] 148 mg/dL High 65 - 105 mg/dL [place] Interpretation and review of laboratory results Abnormal [place] Glucose [Mass/Vol] 170 mg/dL High 65 - 105 mg/dL [place] Interpretation and review of laboratory results Abnormal [place] Glucose [Mass/Vol] 156 mg/dL High 65 - 105 mg/dL [place] Interpretation and review of laboratory results Abnormal [place] Glucose [Mass/Vol] 140 mg/dL High 65 - 105 mg/dL [place] Interpretation and review of laboratory results Abnormal [place] Glucose [Mass/Vol] 109 mg/dL High 65 - 105 mg/dL [place] Interpretation and review of laboratory results Abnormal [place] Glucose [Mass/Vol] 112 mg/dL High 65 - 105 mg/dL [place] Interpretation and review of laboratory results Abnormal [place] Glucose [Mass/Vol] 111 mg/dL High 65 - 105 mg/dL [place] Interpretation and review of laboratory results Abnormal [place] Glucose [Mass/Vol] 130 mg/dL High 65 - 105 mg/dL [place] Interpretation and review of laboratory results Abnormal [place] Glucose [Mass/Vol] 143 mg/dL High 65 - 105 mg/dL [place] Interpretation and review of laboratory results Abnormal [place] Glucose [Mass/Vol] 126 mg/dL High 65 - 105 mg/dL [place] Interpretation and review of laboratory results Abnormal [place] Glucose [Mass/Vol] 126 mg/dL High 65 - 105 mg/dL [place] Interpretation and review of laboratory results Abnormal [place] Glucose [Mass/Vol] 174 mg/dL High 65 - 105 mg/dL [place] Interpretation and review of laboratory results Abnormal [place] Glucose [Mass/Vol] 214 mg/dL High 65 - 105 mg/dL [place] Interpretation and review of laboratory results Abnormal [place] Glucose [Mass/Vol] 214 mg/dL High 65 - 105 mg/dL [place] Interpretation and review of laboratory results Abnormal [place] Glucose [Mass/Vol] 252 mg/dL High 65 - 105 mg/dL [place] Interpretation and review of laboratory results Abnormal [place] Glucose [Mass/Vol] 281 mg/dL High 65 - 105 mg/dL [place] Interpretation and review of laboratory results Abnormal [place] Glucose [Mass/Vol] 291 mg/dL High 65 - 105 mg/dL [place] Interpretation and review of laboratory results Abnormal [place] Glucose [Mass/Vol] 283 mg/dL High 65 - 105 mg/dL [place] Interpretation and review of laboratory results Abnormal [place] Glucose [Mass/Vol] 275 mg/dL High 65 - 105 mg/dL [place] Interpretation and review of laboratory results Abnormal [place] Glucose [Mass/Vol] 264 mg/dL High 65 - 105 mg/dL [place] Interpretation and review of laboratory results Abnormal [place] Glucose [Mass/Vol] 270 mg/dL High 65 - 105 mg/dL [place] Interpretation and review of laboratory results Abnormal [place] Glucose [Mass/Vol] 244 mg/dL High 65 - 105 mg/dL [place] Interpretation and review of laboratory results Abnormal [place] Glucose [Mass/Vol] 226 mg/dL High 65 - 105 mg/dL [place] Interpretation and review of laboratory results Abnormal [place] Glucose [Mass/Vol] 272 mg/dL High 65 - 105 mg/dL [place] Interpretation and review of laboratory results Abnormal [place] Glucose [Mass/Vol] 290 mg/dL High 65 - 105 mg/dL [place] Interpretation and review of laboratory results Abnormal [place] POCT Glucoseon 07-30-2020 Glucose [Mass/Vol] 296 mg/dL High 74 - 100 mg/dL [place] Glucose [Mass/Vol] 284 mg/dL High 74 - 100 mg/dL [place] Glucose [Mass/Vol] 325 mg/dL High 74 - 100 mg/dL [place] POTASSIUMon 07-30-2020 Potassium [Moles/Vol] 4.4 mmol/L 3.7 - 5.3 mmol/L [place] Comment on above: SPECIMEN SLIGHTLY HE MOLYZED, RESULTS MAY BE ADVERSELY AFFECTED. Potassium [Moles/Vol] 3.8 mmol/L 3.7 - 5.3 mmol/L [place] Phosphoruson 07-30-2020 Phosphate [Mass/Vol] 1.7 mg/dL Low 2.6 - 4 .5 mg/dL [place] Phosphate [Mass/Vol] 1.7 mg/dL Low 2.6 - 4 .5 mg/dL [place] Phosphate [Mass/Vol] 1.7 mg/dL Low 2.6 - 4 .5 mg/dL [place] Phosphate [Mass/Vol] 0.6 mg/dL Critically low 2.6 - 4.5 mg/dL [place] Phosphate [Mass/Vol] 0.5 mg/dL Critically low 2.6 - 4.5 mg/dL [place] Interpretation and review of laboratory results Abnormal [place] Phosphate [Mass/Vol] 1.1 mg/dL Low 2.6 - 4 .5 mg/dL [place] SPECIMEN REJECTIONon 021 Ordered Test ADAU9S [place] Reason for Rejection Unable to perform testing: Specimen quantity not sufficient. [place] Specimen source Nom (Unsp spec) .BLOOD [place] - NOT REPORTED [place] Salicylateon 07-30-2020 Interpretation and review of laboratory results Abnormal [place] Salicylate Lvl 1 mg/dL Low 3 - 10 mg/dL [place] TOXIC TRICYCLIC SC,Bon 07-30 Toxic Tricyclic Sc,Blood Negative NEGATIVE [place] TSH with Reflexon 07-30-2020 TSH Qn 0.35 m[IU]/L [place] Urinalysis Reflex to Culture on 07-30-2020 Bilirubin Urine Negative NEGATIVE [place] Color, UA YELLOW YELLOW [place] Glucose, Ur 3+ Abnormal NEGATIVE [place] Interpretation and review of laboratory results Abnormal [place] Ketones Ql (U) LARGE Abnormal NEGATIVE [place] Leukocyte esterase Test strip Ql (U) TRACE Abnormal NEGATIVE [place] Nitrite, Urine Negative NEGATIVE [place] pH, UA 5.0 [place] Protein (U) [Mass/Vol] 2+ Abnormal NEGATIVE [place] Specific [place], UA 1.019 [place] Turbidity UA CLOUDY Abnormal CLEAR [place] Urinalysis Comments NOT REPORTED [place] Urine Hgb MODERATE Abnormal NEGATIVE [place] Urobilinogen, Urine Normal [place] Urine Drug Screenon 07-30-19 21 Amphetamine Screen, Ur Negative NEGATIVE [place] Comment on above: (Positive cutoff 1000 ng/mL) Barbiturate Screen, Ur Negative NEGATIVE [place] Comment on above: (Positive cutoff 200 ng/mL) Benzodiazepine Screen, Urine Negative NEGATIVE [place] Comment on above: (Positive cutoff 200 ng/mL) Buprenorphine Urine NOT REPORTED NEGATIVE [place] Cannabinoid Scrn, Ur Negative NEGATIVE [place] Comment on above: (Positive cutoff 50 ng/mL) Cocaine Metabolite, Urine Negative NEGATIVE [place] Comment on above: (Positive cutoff 300 ng/mL) MDMA, Urine NOT REPORTED [place]GATIVE [place] Methadone Screen, Urine Negative NEGATIVE [place] Comment on above: (Positive cutoff 300 ng/mL) Methamphetamine, Urine NOT REPORTED [place]GAT[place] Opiates, Urine Negative NEGATIVE [place] Comment on above: (Positive cutoff 300 ng/mL) Oxycodone Screen, Ur Negative NEGATIVE [place] Comment on above: (Positive cutoff 100 ng/mL) Phencyclidine, Urine Negative NEGATIVE [place] Comment on above: (Positive cutoff 25 ng/mL) Propoxyphene, Urine NOT REPORTED NEGATIVE [place] Test Information Assay provides medical screening only. The absence of expected drug(s) and/or metabolite(s) may indicate diluted or adulterated urine, limitations of testing or timing of collection. [place] Comment on above: Testing for legal pu rposes should be confirmed by another method. To request confirmation of test result, please call the lab within 7 days of sample submission. Tricyclic Antidepressants, Urine NOT REPORTED [facility] 21 Wong, Mhpn Incoming Radiant Results From [facility]acs - 07/30/2020 2:54 AM EST EXAMINATION: ONE XRAY VIEW OF THE CHEST 07/30/2020 2:14 am COMPARISON: None. HISTORY: ORDERING SYSTEM PROVIDED HISTORY: line placement TECHNOLOGIST PROVIDED HISTORY: line placement Reason for Exam: line placement Acuity: Unknown Type of Exam: Unknown FINDINGS: There are scattered pulmonary infiltrates most pronounced in the right lower lobe. There is no effusion. There is no pneumothorax. The mediastinal structures are unremarkable. The upper abdomen unremarkable. The extrathoracic soft tissues are unremarkable. There is a right internal jugular line with tip in the distal SVC. IMPRESSION: Scattered bilateral infiltrates most pronounced in the right lower lobe consistent with pneumonia. Right internal jugular line with the tip in the distal SVC. [place] EXAMINATION: ONE XRAY VIEW OF THE CHEST 07/30/2020 2:14 am COMPARISON: None. HISTORY: ORDERING SYSTEM PROVIDED HISTORY: line placement TECHNOLOGIST PROVIDED HISTORY: line placement Reason for Exam: line placement Acuity: Unknown Type of Exam: Unknown FINDINGS: There are scattered pulmonary infiltrates most pronounced in the right lower lobe. There is no effusion. There is no pneumothorax. The mediastinal structures are unremarkable. The upper abdomen unremarkable. The extrathoracic soft tissues are unremarkable. There is a right internal jugular line with tip in the distal SVC. [facility] ANTHONY Scattered bilateral infiltrates most pronounced in the right lower lobe consistent with pneumonia. Right internal jugular line with the tip in the distal SVC. [facility] [place] ACETAMINOPHENon 07-29-2020 Acetaminophen [Mass/Vol] <10.0 Critically low 10.1-30 .0 [facility] Comment on above: Performed By: #### D RUGRPD #### [facility] [address] [address] Alfie Mederos ACETONE SERUMon 07-29-2020 ACETONE SMALL Abnormal NEGATIVE [facility] Comment on above: Performed By: #### A CETON #### [facility] [address] [place], [place] [address] Alfie Mederos BLOOD GAS, VENOUSon 07-29-19 21 Cami Test NOT REPORTED [facility] aPTT Coag (Bld) [Time] 37.0 s [facility] Carboxyhemoglobin 0.6 % 0 - 5 % [facility] Comment on above: Reference Range: Non-Smokers 0-2% Average Smoker 2-4% Heavy Smoker <10% FIO2 ROOM AIR [facility] HCO3, Venous 4.2 mmol/L Low 24 - 30 mmol/L [facility] Interpretation and review of laboratory results Abnormal [facility] Methemoglobin NOT REPORTED 0 - 1.5 % [facility] Mode NOT REPORTED [facility] [place] Negative Base Excess, Denis NOT REPORTED 0 - 2 mmol/L [facility] NOTIFICATION NOT REPORTED [facility] NOTIFICATION TIME NOT REPORTED [facility] O2 Device/Flow/% NOT REPORTED [facility] Oxygen saturation in Blood 69.6 % 60 - 85 % [facility] Oxyhemoglobin NOT REPORTED 95 - 98 % [facility] pCO2, Denis 24.6 Low [facility] pCO2, Denis, Temp Adj NOT REPORTED [facility] [place] Peep/Cpap NOT REPORTED [facility] pH, Denis 6.864 Critically low [facility] pH, Denis, Temp Adj NOT REPORTED [facility] pO2, Denis 39.3 [facility] pO2, Denis, Temp Adj NOT REPORTED [facility] Positive Base Excess, Denis NOT REPORTED 0 - 2 mmol/L [facility] PSV NOT REPORTED [facility] [place] Pt. Position NOT REPORTED [facility] Sample Site NOT REPORTED [facility] Set Rate NOT REPORTED [facility] Text for Respiratory NOT REPORTED [facility] Total Hb NOT REPORTED 12 - 16 g/dl [facility] Total Rate NOT REPORTED [facility] VT NOT REPORTED [facility] BLOOD GASES BTYon 07-29-2020 02 MODE ROOM AIR Normal [facility] Comment on above: Performed By: #### A BG #### [facility] [address] [address] Alfie Rosa M ALLENS TEST Positive Normal [facility] Comment on above: Performed By: #### A BG #### [facility] [address] [address] Alfie Rosa M Base excess Calc (Bld) [Moles/Vol] -26.4 mmol/L Critically low -2.0-2.0 [facility] Comment on above: Performed By: #### A BG #### [facility] [address] [id number] Alfie Rosa M BIPAP PRESSURE Normal [facility] Comment on above: Performed By: #### A BG #### [facility] [address] [place] [address] Alfie Rosa M CO2 [Moles/Vol] 3.7 mmol/L Critically low 23.0-28.0 [facility] Comment on above: Performed By: #### A BG #### [facility] [address] [id number] Alfie Rosa M CPAP [facility] Comment on above: Performed By: #### A BG #### [facility] [address] [address] Alfie Rosa M FIO2 Normal [facility] Comment on above: Performed By: #### A BG #### [facility] [address] [address] Alfie Rosa M HCO3 (Bld) [Moles/Vol] 3.3 mmol/L Critically low 22.0-26.0 [facility] Comment on above: Performed By: #### A BG #### [facility] [address] [place] [address] Alfie Rosa M LPM [facility] Comment on above: Performed By: #### A BG #### [facility] [address] [id number] Alfie Rosa M MINUTE VOLUME Normal [facility] Comment on above: Performed By: #### A BG #### [facility] [address] [address] Alfie Rosa M Oxygen (Bld) [Partial pressure] 84.7 mm[Hg] Normal 80.0-100.0 [facility] Comment on above: Performed By: #### A BG #### [facility] [address] [address] Alfie Rosa M Oxygen saturation in Blood 94.1 % Critically low 95.0-100.0 [facility] Comment on above: Performed By: #### A BG #### [facility] [address] [address] Alfie Rosa M PCO2 13.9 mmHg Critically low 35.0-45.0 [facility] Comment on above: Performed By: #### A BG #### [facility] [address] [place] [address] Lafie Rosa M PEEP Normal [facility] Comment on above: Performed By: #### A BG #### [facility] [address] [address] Alfie Rosa M pH (Bld) 6.991 [pH] Critically low 7.350-7.450 [facility] Comment on above: Performed By: #### A BG #### [facility] [address] [place] [address] Alfie Rosa M PIP Normal [facility] Comment on above: Performed By: #### A BG #### [facility] [address] [place] [address] Alfie Rosa M PS Normal [facility] Comment on above: Performed By: #### A BG #### [facility] [address] [place] [address] Alfie Rosa M PUNCTURE SITE RR Normal [facility] Comment on above: Performed By: #### A BG #### [facility] [address] [place] [address] Alfie Rosa M RATE Normal [facility] Comment on above: Performed By: #### A BG #### [facility] [address] [place] [address] Alfie Rosa M VENT MODE Normal [facility] Comment on above: Performed By: #### A BG #### [facility] [address] [place], [place] [address] Alfie Mederos [place] Normal [facility] [facility] Comment on above: Performed By: #### A BG #### [facility] [address] [place], [place] [address] Alfie Mederos Basic Metabolic Panelon 3 Anion gap [Moles/Vol] Unable to calculat e anion gap due to CO2 less than 6. 9 - 17 mmol/L [place] Bun/Cre Ratio NOT REPORTED [place] Calcium [Mass/Vol] 7.0 mg/dL Low 8.6 - 10. 4 mg/dL [place] Chloride [Moles/Vol] 109 mmol/L High 98 - 10 7 mmol/L [place] CO2 [Moles/Vol] mmol/L Critically low 20 - 31 mmol/L [place] Creatinine [Mass/Vol] 0.98 mg/dL High 0.5 - 0.9 mg/dL [place] GFR >60 >60 mL/min [place] GFR Non- >60 >60 mL/min [place] GFR/1.73 sq M predicted among non-blacks MDRD (S/P/Bld) [Vol rate/Area] NOT REPORTED [place] GFR/1.73 sq M predicted among non-blacks MDRD (S/P/Bld) [Vol rate/Area] [place] Comment on above: Average GFR for 20-2 9 years old: 116 mL/min/1.73sq m Chronic Kidney Disease: <60 mL/min/1.73sq m Kidney failure: <15 mL/min/1.73sq m eGFR calculated using average adult body mass. Additional eGFR calculator available at: http://www.Zipalong/multiple_crcl_2012.htm Glucose [Mass/Vol] 360 mg/dL High 70 - 99 mg/dL [place] Interpretation and review of laboratory results Abnormal [place] Potassium [Moles/Vol] 4.1 mmol/L 3.7 - 5.3 mmol/L [place] Sodium [Moles/Vol] 136 mmol/L 135 - 144 mmol/L [place] Urea nitrogen [Mass/Vol] 30 mg/dL High 6 - 20 mg/d L [place] Anion gap [Moles/Vol] Unable to calculat e anion gap due to CO2 less than 6. 9 - 17 mmol/L [place] Bun/Cre Ratio NOT REPORTED [place] Calcium [Mass/Vol] 6.9 mg/dL Low 8.6 - 10. 4 mg/dL [place] Chloride [Moles/Vol] 110 mmol/L High 98 - 10 7 mmol/L [place] CO2 [Moles/Vol] mmol/L Critically low 20 - 31 mmol/L [place] Creatinine [Mass/Vol] 0.95 mg/dL High 0.5 - 0.9 mg/dL [place] GFR >60 >60 mL/min [place] GFR Non- >60 >60 mL/min [place] GFR/1.73 sq M predicted among non-blacks MDRD (S/P/Bld) [Vol rate/Area] [place] Comment on above: Average GFR for 20-2 9 years old: 116 mL/min/1.73sq m Chronic Kidney Disease: <60 mL/min/1.73sq m Kidney failure: <15 mL/min/1.73sq m eGFR calculated using average adult body mass. Additional eGFR calculator available at: http://www.Debitos.Zeenshare/multiple_crcl_2012.htm GFR/1.73 sq M predicted among non-blacks MDRD (S/P/Bld) [Vol rate/Area] NOT REPORTED [place] Glucose [Mass/Vol] 368 mg/dL High 70 - 99 mg/dL [place] Interpretation and review of laboratory results Abnormal [place] Potassium [Moles/Vol] 4.0 mmol/L 3.7 - 5.3 mmol/L [place] Sodium [Moles/Vol] 137 mmol/L 135 - 144 mmol/L [place] Urea nitrogen [Mass/Vol] 30 mg/dL High 6 - 20 mg/d L [place] CBC W MANUAL DIFFon 07-29-19 21 ATYPICAL LYMPH # 0.33 103/ul Normal [facility] Comment on above: Performed By: #### Colt MERRILL, PERSMR #### [facility] [address] [place] [address] Alfie Rosa M ATYPICAL LYMPH % 1 % Normal [facility] Comment on above: Performed By: #### Colt MERRILL, PERSMR #### [facility] [address] [place] [address] Alfie Rosa M BAND # 3.0 103/ul Critically high 0.0-0.3 [facility] Comment on above: Performed By: #### Colt MERRILL, PERSMR #### [facility] [address] [place] [address] Alfie Rosa M BAND % 9 % Critically high 0-5 [facility] Comment on above: Performed By: #### Colt MERRILL PERSMR #### [facility] [address] [place] [address] Alfie Rosa M BASOM # 0.00 103/ul Normal 0.00-0.10 [facility] Comment on above: Performed By: #### Colt MERRILL PERSMR #### [facility] [address] [place] [address] Alfie Rosa M BASOM % 0.0 % Critically low 0.2-2.0 [facility] Comment on above: Performed By: #### Colt MERRILL PERSMR #### [facility] [address] [place] [address] Alfie Rosa M BLAST # Normal [facility] Comment on above: Performed By: #### Colt MERRILL, PERSMR #### [facility] [address] [place] [address] Alfie Rosa M BLAST % Normal [facility] Comment on above: Performed By: #### Colt MERRILL PERSMR #### [facility] [address] [place] [id number] Alfie Rosa M CORRECTED WBC Normal 4.0-11.0 [facility] Comment on above: Performed By: #### Colt MERRILL, PERSMR #### [facility] [address] [place], [place] [address] Alfie Rosa M Eosinophils (Bld) [#/Vol] 0.00 103/ul Normal 0.00-0.70 [facility] Comment on above: Performed By: #### Colt MERRILL, PERSMR #### [facility] [address] [place], [place] [id number] Alfie Rosa M Eosinophils/100 WBC (Bld) 0.0 % Critically low 0.9-7.0 [facility] Comment on above: Performed By: #### Colt MERRILL, PERSMR #### [facility] [address] [place], [place] [id number] Alfie Rosa M Erythrocyte distribution width (RBC) [Ratio] 13.2 % Normal 11.0-15.0 [facility] Comment on above: Performed By: #### Colt MERRILL PERSMR #### [facility] [address] [place], [place] [id number] Alfie Rosa M Hematocrit (Bld) [Volume fraction] 48.3 % Critically high 36.0-48.0 [facility] Comment on above: Performed By: #### Colt MERRILL, PERSMR #### [facility] [address] [place], [place] [id number] Alfie Rosa M Hemoglobin (Bld) [Mass/Vol] 15.2 g/dl Normal 12.0-16.0 [facility] Comment on above: Performed By: #### Colt MERRILL, PERSMR #### [facility] [address] [place], [place] [id number] Alfie Rosa M LYMPHM # 3.00 103/ul Normal 1.20-3.80 [facility] Comment on above: Performed By: #### Colt MERRILL, PERSMR #### [facility] [address] [place], [place] [id number] Alfie Rosa M LYMPHM% 9.0 % Critically low 20.5-60.0 [facility] Comment on above: Performed By: #### Colt MERRILL, PERSMR #### [facility] [address] [place] [id number] Alfiejamie Mederos MCH (RBC) [Entitic mass] 26.8 pg Normal 26.7-34.0 [facility] Comment on above: Performed By: #### C DESIRAE, PERSMR #### [facility] [address] [place] [address] Alfiejamie Mederos MCHC (RBC) [Mass/Vol] 31.5 g/dl Normal 29.9-35.2 [facility] Comment on above: Performed By: #### C DESIRAE, PERSMR #### [facility] [address] [place] [address] Alfie Mederos MCV (RBC) [Entitic vol] 85.0 fL Normal 81.0-99.0 [facility] Comment on above: Performed By: #### Colt MERRILL, PERSMR #### [facility] [address] [place] [address] Alfie Rosa M METAMYELOCYTE # 1.0 103/ul Normal [facility] Comment on above: Performed By: #### Colt MERRILL, PERSMR #### [facility] [address] [place] [address] Alfie Rosa M METAMYELOCYTE % 3 % Normal [facility] Comment on above: Performed By: #### Colt MERRILL, PERSMR #### [facility] [address] [place] [address] Lafie Rosa M MONOM# 1.33 103/ul Critically high 0.30-0.80 [facility] Comment on above: Performed By: #### Colt MERRILL, PERSMR #### [facility] [address] [place] [address] Alfie Rosa M MONOM% 4.0 % Normal 1.7-12.0 [facility] Comment on above: Performed By: #### Colt MERRILL, PERSMR #### [facility] [address] [place] [address] Alfie Rosa M MYELOCYTE # 0.3 103/ul Normal [facility] Comment on above: Performed By: #### Colt MERRILL, PERSMR #### [facility] [address] [place] [address] Alfie Rosa M MYELOCYTE % 1 % Normal [facility] Comment on above: Performed By: #### Colt MERRILL, PERSMR #### [facility] [address] [place], [place] [id number] Alfie Rosa M NRBC Normal [facility] Comment on above: Performed By: #### Colt MERRILL, PERSMR #### [facility] [address] [place] [address] Alfie Rosa M PATH REVIEW INDICATED Normal [facility] Comment on above: Performed By: #### Colt MERRILL PERSMR #### [facility] [address] [place] [address] Alfie Rosa M Platelet mean volume (Bld) [Entitic vol] 10.1 fL Normal 9.5-13.5 [facility] Comment on above: Performed By: #### Colt MERRILL PERSMR #### [facility] [address] [place] [address] Alfie Rosa M Platelets (Bld) [#/Vol] 384 103/ul Normal 150-450 [facility] Comment on above: Performed By: #### Colt MERRILL, PERSMR #### [facility] [address] [place] [address] Alfie Rosa M RBC (Bld) [#/Vol] 5.68 106/ul Critically high 4.20-5.40 [facility] Comment on above: Result Comment: crit ical value repeated and verified for wbc Performed By: #### Colt MERRILL, PERSMR #### [facility] [address] [place] [address] Alfie Rosa M SEG # 24.31 103/ul Critically high 1.40-6.50 [facility] Comment on above: Performed By: #### Colt MERRILL, PERSMR #### [facility] [address] [place], [place] [phone] Alfie Rosa M Segmented neutrophils/100 WBC (Bld) 73.0 % Normal 43.0-75.0 [facility] Comment on above: Performed By: #### C SAAD MERRILL #### [facility] [address] [place], [place] [address] Alfie Mederos WBC (Bld) [#/Vol] 33.3 103/ul Critically high 4.0-11.0 [facility] Comment on above: Result Comment: crit ical toya Performed By: #### C SAAD MERRILL #### [facility] [address] [place], [place] [address] Alfie Mederos CBC auto differentialon 07-02 Basophils (Bld) [#/Vol] 0.00 10*3/uL [place] Basophils/100 WBC (Bld) 0 % 0 - 2 % M [place] Differential Type NOT REPORTED [place] Eosinophils (Bld) [#/Vol] 0.00 10*3/uL [place] Eosinophils/100 WBC (Bld) 0 % Low 1 - 4 % [place] Erythrocyte distribution width (RBC) [Ratio] 13.0 % 11.8 - 14.4 % [place] Hematocrit (Bld) [Volume fraction] 45.0 % 36.3 - 47.1 % [place] Hemoglobin (Bld) [Mass/Vol] 14.0 g/dL 11.9 - 15.1 g/dL [place] Immature granulocytes (Bld) [#/Vol] 0.86 10*3/uL [place] Immature granulocytes (Bld) [#/Vol] 3 % High 0 [place] Interpretation and review of laboratory results Abnormal [place] Lymphocytes (Bld) [#/Vol] 1.43 10*3/uL [place] Lymphocytes/100 WBC (Bld) 5 % Low 24 - 44 % [place] MCH (RBC) [Entitic mass] 26.3 pg 25. 2 - 33.5 pg [place] MCHC (RBC) [Mass/Vol] 31.1 g/dL 28.4 - 34.8 g/dL [place] MCV (RBC) [Entitic vol] 84.6 fL 82.6 - 102.9 fL [place] Monocytes (Bld) [#/Vol] 1.14 10*3/uL [place] Monocytes/100 WBC (Bld) 4 % 1 - 7 % [place] Morphology Calvin (Bld) [Interp] Normal [place] Platelet mean volume (Bld) [Entitic vol] 9.9 fL 8.1 - 13.5 fL [place] Platelets (Bld) [#/Vol] 346 10*3/uL [place] Platelets (Bld) [#/Vol] NOT REPORTED [place] RBC (Bld) [#/Vol] 5.32 10*6/uL High 3.95 - 5.1 1 m/uL [place] RBC morphology finding Nom (Bld) NOT REPORTED [place] Segmented neutrophils/100 WBC (Bld) 88 % High 36 - 66 % [place] Segs Absolute 25.07 [place] WBC (Bld) [#/Vol] 0.0 10*3/uL 0.0 per 10 0 WBC [place] WBC (Bld) [#/Vol] 28.5 10*3/uL [place] WBC Morphology NOT REPORTED [place] CT HEAD WO CONon 07-29-2020 CT HEAD WO CON EXAMINATION: CT HEAD WO CON HISTORY: DISORIENTATION, UNSPECIFIED COMPARISON: None. TECHNIQUE: CT examination of the head without IV contrast. Dose reduction techniques were achieved by using automated exposure control and/or adjustment of mA and/or kV according to patient size and/or use of iterative reconstruction technique. FINDINGS: There is extensive motion artifact. Study is nondiagnostic for acute infarct. No gross parenchymal hemorrhage is seen. The ventricles are normal size and are midline. IMPRESSION: Very limited exam due to extensive patient motion. Suggest repeat evaluation when patient can remain still. Electronically authenticated by: KALIN BRUNER Date: 2020-07-29 17:22 Normal [facility] CULTURE URINEon 07-29-2020 CULTURE URINE Culture Observations: NO GROWTH Normal [facility] Comment on above: Performed By: #### D RUGRPD #### [facility] [address] [place] [address] Alfiejamie Mederos DRUG SCREEN RAPID (URINE)on 07-29-2020 AMP Negative Normal NEGATIVE [facility] Comment on above: Performed By: #### D RUGRPD #### [facility] [address] [place] [address] Alfie Rosa M BAR Negative Normal NEGATIVE [facility] Comment on above: Performed By: #### D RUGRPD #### [facility] [address] [place] [address] Alfie Rosa M BUP Negative Normal NEGATIVE [facility] Comment on above: Performed By: #### D RUGRPD #### [facility] [address] [place] [address] Alfie Rosa M BZO Negative Normal NEGATIVE [facility] Comment on above: Performed By: #### D RUGRPD #### [facility] [address] [place] [address] Alfie Rosa M KRISTINA Negative Normal NEGATIVE [facility] Comment on above: Performed By: #### D RUGRPD #### [facility] [address] [place] [address] Alfie Rosa M CUT-OFFS SEE BELOW Normal [facility] Comment on above: Result Comment: AMP (Amphetamine): 500ng/mL, BAR (Barbituates): 200 ng/mL, BZO (Benzodiazepines): 150 ng/mL, BUP (Buprenorphine): 10 ng/mL, KRISTINA (Cocaine): 150 ng/mL, mAMP (Methamphetamine): 500 ng/mL, MTD (Methadone): 200 ng/mL, OPI (Opiates): 100 ng/mL or 2000 ng/mL, OXY (Oxycodone): 100 ng/mL, PCP (Phencyclidine): 25 ng/mL, PPX (Propoxyphene): 300 ng/mL, THC (Cannabinoids): 50 ng/mL, TCA (Trycyclic Antidepressants): 300 ng/mL Performed By: #### D RUGRPD #### [facility] [address] [place] [address] Alfiejamie Mederos DRUG CUT HEADER DRUG CLASS TEST SYSTEM CUT-OFF CONCENTRATIONS ARE FOLLOWS: Normal [facility] Comment on above: Performed By: #### D RUGRPD #### [facility] [address] [place] [address] Alfie Rosa M mAMP Negative Normal NEGATIVE [facility] Comment on above: Performed By: #### D RUGRPD #### [facility] [address] [place] [address] Alfie Rosa M MTD Negative Normal NEGATIVE [facility] Comment on above: Performed By: #### D RUGRPD #### [facility] [address] [place] [address] Alfie Rosa M OPI Negative Normal NEGATIVE [facility] Comment on above: Performed By: #### D RUGRPD #### [facility] [address] [place] [address] Alfie Rosa M OXY Negative Normal NEGATIVE [facility] Comment on above: Performed By: #### D RUGRPD #### [facility] [address] [place] [address] Alfie Rosa M PCP Negative Normal NEGATIVE [facility] Comment on above: Performed By: #### D RUGRPD #### [facility] [address] [place] [address] Alfie Rosa M PPX Negative Normal NEGATIVE [facility] Comment on above: Performed By: #### D RUGRPD #### [facility] [address] [place] [address] Alfie Rosa M TCA Negative Normal NEGATIVE [facility] Comment on above: Performed By: #### D RUGRPD #### [facility] [address] [place] [address] Alfie Rosa M THC Negative Normal NEGATIVE [facility] Comment on above: Performed By: #### D RUGRPD #### [facility] [address] [place] [address] Alfie Rosa M ER URINE PROFILEon 1 Bilirubin [Mass/Vol] Negative Normal NEGATIVE [facility] Comment on above: Performed By: #### D RUGRPD #### [facility] [address] [place], [place] [address] Alfie Rosa M BLOOD MODERATE Abnormal NEGATIVE [facility] Comment on above: Performed By: #### D RUGRPD #### [facility] [address] [place] [address] Alfie Rosa M Clarity (U) CLEAR Normal CLEAR [facility] Comment on above: Performed By: #### D RUGRPD #### [facility] [address] [place], [place] [id number] Aflie Rosa M Color (U) LT. YELLOW Normal YELLOW [facility] Comment on above: Performed By: #### D RUGRPD #### [facility] [address] [place] [address] Alfie Rosa M ERUAHD A micrscopic examination will be performed if indicated. Normal [facility] Comment on above: Performed By: #### D RUGRPD #### [facility] [address] [place] [address] Alfie Rosa M Glucose [Mass/Vol] >1000 Abnormal NEGATIVE [facility] Comment on above: Performed By: #### Jam RUGRPD #### [facility] [address] [place] [address] Alfie Rosa M Ketones Ql (U) >=80 Abnormal NEGATIVE [facility] Comment on above: Performed By: #### Jam HURTADORPD #### [facility] [address] [place] [address] Alfie Rosa M Nitrite Ql (U) Negative Normal NEGATIVE [facility] Comment on above: Performed By: #### Jam HURTADORPD #### [facility] [address] [place] [address] Alfie Rosa M pH (Bld) 5.5 Normal 5-9 [facility] Comment on above: Performed By: #### Jam HURTADORPD #### [facility] [address] [place] [address] Alfie Rosa M Protein (U) [Mass/Vol] 30 mg/dL Abnormal NEGAT MALISSA/ TRACE [facility] Comment on above: Performed By: #### Jam RUGRPD #### [facility] [address] [place] [address] Alfie Rosa M SPEC GRAVITY 1.025 Normal 1.005-<=1.02 5 [facility] Comment on above: Performed By: #### D RUGRPD #### [facility] [address] [place] [address] Alfie Mederos UR MICRO IND INDICATED Normal [facility] Comment on above: Performed By: #### D RUGRPD #### [facility] [address] [place] [id number] Alfie Mederos Urobilinogen Qn (U) 0.2 EU/dl Normal 0.2 - 1.0 [facility] Comment on above: Performed By: #### D RUGRPD #### [facility] [address] [place], [place] [address] Alfie Mederos WBC (Bld) [#/Vol] Negative Normal NEGATIVE [facility] Comment on above: Performed By: #### D RUGRPD #### [facility] [address] [place], [place] [address] Alfie Mederos ETHANOL (BLD ALC)on 07-29-19 21 Ethanol [Mass/Vol] NOTE: 80 mg/dl is the legal limit for a blood alcohol level Normal [facility] Comment on above: Performed By: #### D RUGGUILLERMOD #### [facility] [address] [place], [place] [address] Alfie Mederos Ethanol [Mass/Vol] mg/dL Normal [facility] Comment on above: Performed By: #### D RUGRPD #### [facility] [address] [place], [place] [address] Alfie Mederos LACTIC ACID, WHOLE BLOODon 0 07-29-2020 Lactic Acid, Whole Blood 1.1 mmol/L 0.7 - 2.1 mmol/L [facility], [place] Magnesiumon 07-29-2020 Magnesium [Mass/Vol] 2.0 mg/dL 1.6 - 2 .6 mg/dL [facility], [place] Magnesium [Mass/Vol] 1.8 mg/dL 1.6 - 2 .6 mg/dL [facility], [place] NAon 07-29-2020 Sodium [Moles/Vol] 138 mmol/L Normal 137-145 [facility] Comment on above: Performed By: #### K , NA #### [facility] [address] [place], [place] [address] Alfie Rosa M PERIPHERAL SMEARon Pathologist Cyto stain Nom (Cvx/Vag) [ID] DR. LUÍS HAY [facility] Comment on above: Result Comment: nini ed neutrophilia with left shift, rule out infectious process mild erythrocytosis CPT: 35935 luís hay 08-01-20 Performed By: #### C DESIRAE, PERSMR #### [facility] [address] [place], [place] [address] Alfie Rosa M PH VENOUS BLOODon 07-29-2020 PCO2 VENOUS 21.5 mmHg Critically low 40.0-52.0 [facility] Comment on above: Performed By: #### A BG #### [facility] [address] [place] [address] Alfie Rosa M pH VENOUS <6.93 Critically low 7.33-7.43 [facility] Comment on above: Performed By: #### A BG #### [facility] [address] [place], [place] [address] Alfie Rosa M POC Glucose Fingerstickon Glucose [Mass/Vol] 334 mg/dL High 65 - 105 mg/dL [place] Interpretation and review of laboratory results Abnormal [place] Glucose [Mass/Vol] 340 mg/dL High 65 - 105 mg/dL [place] Interpretation and review of laboratory results Abnormal [place] Glucose [Mass/Vol] 363 mg/dL High 65 - 105 mg/dL [place] Interpretation and review of laboratory results Abnormal [place] POINT OF CARE GLUCOSEon 07-02 Glucose [Mass/Vol] 337 mg/dL Critically high 74-106 [facility] Comment on above: Performed By: #### P OCGLUC #### [facility] [address] [place], [place] [address] Alfie Rosa M Glucose [Mass/Vol] 367 mg/dL Critically high 74-106 [facility] Comment on above: Performed By: #### D RUGRPD #### [facility] [address] [place], [place] [address] Alfie Rosa M Glucose [Mass/Vol] 375 mg/dL Critically high 74-106 [facility] Comment on above: Performed By: #### D RUGRPD #### [facility] [address] [place], [place] [address] Alfie Rosa M Glucose [Mass/Vol] 403 mg/dL Critically high 74-106 [facility] Comment on above: Performed By: #### A BG #### [facility] [address] [place] [address] Alfie Rosa M POTASSIUMon 07-29-2020 Potassium [Moles/Vol] 4.0 mmol/L Normal 3.4-5.0 [facility] Comment on above: Performed By: #### K , NA #### [facility] [address] [place] [address] Alfie Rosa M URon 07-29-2020 , QUAL Negative Normal NEGATIVE [facility] Comment on above: Performed By: #### P REGU #### [facility] [address] [place] [address] Alfie Rosa M PROF 14(COMP METB)on 021 Albumin [Mass/Vol] 3.2 g/dL Critically low 3.5-5.0 [facility] Comment on above: Performed By: #### D RUGRPD #### [facility] [address] [place] [address] Alfie Rosa M Albumin/Globulin [Mass ratio] 1.0 {ratio} Normal [facility] Comment on above: Performed By: #### D RUGRPD #### [facility] [facility] [address] [place] [id number] Alfie Rosa M ALP [Catalytic activity/Vol] 135 U/L Critically high 38-126 [facility] Comment on above: Performed By: #### D RUGRPD #### [facility] [address] [place] [id number] Alfie Rosa M ALT [Catalytic activity/Vol] 27 U/L Normal 9-52 [facility] Comment on above: Performed By: #### D RUGRPD #### [facility] [address] [place], [place] [address] Alfie Rosa M Anion gap [Moles/Vol] 31.9 mmol/L Normal [facility] Comment on above: Performed By: #### D RUGRPD #### [facility] [address] [place], [place] [address] Alfie Rosa M AST [Catalytic activity/Vol] 52 U/L Critically high 14-36 [facility] Comment on above: Performed By: #### D RUGRPD #### [facility] [address] [place], [place] [address] Alfie Rosa M Bilirubin Ql (U) 0.5 mg/dL Normal 0.2-1.3 [facility] Comment on above: Performed By: #### D RUGRPD #### [facility] [address] [place] [id number] Alfie Rosa M Calcium [Mass/Vol] 6.8 mg/dL Critically low 8.4-10.2 [facility] Comment on above: Performed By: #### D RUGRPD #### [facility] [address] [place], [place] [address] Alfie Rosa M Chloride [Moles/Vol] 103 mmol/L Normal 98-107 [facility] Comment on above: Performed By: #### D RUGRPD #### [facility] [address] [place], [place] [address] Alfie Rosa M CO2 [Moles/Vol] mmol/L Critically low 22.0-30.0 [facility] Comment on above: Result Comment: TEST REPEATED CRITICAL VALUE VERIFIED Performed By: #### D RUGRPD #### [facility] [address] [place], [place] [address] Alfie Rosa M Creatinine [Mass/Vol] 1.08 mg/dL Critically high 0.52-1.04 [facility] Comment on above: Performed By: #### D RUGRPD #### [facility] [address] [place], [place] [address] Alfie Rosa M EGFR-AF TURKMEN >60 Normal >=60 [facility] Comment on above: Performed By: #### D RUGRPD #### [facility] [address] [place], [place] [address] Alfie Rosa M EGFR-NON AF TURKMEN >60 Normal >=60 [facility] Comment on above: Performed By: #### D RUGRPD #### [facility] [address] [place], [place] [address] Alfie Rosa M Globulin (S) [Mass/Vol] 3.1 g/dL Normal [facility] Comment on above: Performed By: #### D RUGRPD #### [facility] [address] [place], [place] [address] Alfie Rosa M Glucose [Mass/Vol] 448 mg/dL Critically high 74-106 [facility] Comment on above: Performed By: #### D RUGRPD #### [facility] [address] [place], [place] [address] Alfie Rosa M Potassium [Moles/Vol] 3.9 mmol/L Normal 3.4-5.0 [facility] Comment on above: Performed By: #### D RUGRPD #### [facility] [address] [place], [place] [address] Alfie Rosa M Protein [Mass/Vol] 6.3 g/dL Normal 6.1-8.2 [facility] Comment on above: Performed By: #### D RUGGUILLERMOD #### [facility] [address] [place], [place] [address] Alfie Rosa M Sodium [Moles/Vol] 136 mmol/L Critically low 137-145 [facility] Comment on above: Performed By: #### D GENESISRPD #### [facility] [address] [place], [place] [address] Alfie Rosa M Urea nitrogen [Mass/Vol] 28.0 mg/dL Critically high 7.0-17 .0 [facility] Comment on above: Performed By: #### D BELTRAND #### [facility] [address] [place], [place] [address] Alfie Rosa M Urea nitrogen/Creatinine [Mass ratio] 25.9 mg/mg Normal [facility] Comment on above: Performed By: #### D KAILEY #### [facility] [address] [place] [address] Alfie Mederos Phosphoruson 07-29-2020 Phosphate [Mass/Vol] 2.9 mg/dL 2.6 - 4 .5 mg/dL [facility] [place] Phosphate [Mass/Vol] 2.6 mg/dL 2.6 - 4 .5 mg/dL [facility] [place] Rapid Covid-19 PCR (CVDRPD)o n 07-29-2020 [facility] Info SEE BELOW Normal [facility] Comment on above: Result Comment: This test is not yet approved or cleared by the [place] Food and Drug Administration (FDA) . This test was developed by [employer], [facility]. The performance characteristics of this test were validated by [facility]. The results are not intended to be used as the sole means for clinical diagnosis or patient management decisions. [facility] is authorized under Clinical Laboratory Improvement Amendments (CLIA) to perform high-complexity testing. When diagnostic testing is negative, the possibility of a false negative should be considered in the context of a patients recent exposures and the presence of clinical signs and symptoms consistent with SARS-CoV-2. Performed By: #### C VDRPD #### [facility] [address] [place] [address] Alfie Mederos SARS-CoV-2 NOT DETECTED Normal NOT DETECTED [facility] Comment on above: Result Comment: This test is not yet approved or cleared by the [place] Food and Drug Administration (FDA). This test was developed by [employer], [facility]. The performance characteristics of this test were validated by [facility]. The results are not intended to be used as the sole means for clinical diagnosis or patient management decisions. [facility] is authorized under Clinical Laboratory Improvement Amendments (CLIA) to perform high-complexity testing. Performed By: #### C VDRPD #### [facility] [address] [place] [address] Alfie Mederos SALICYLATEon 07-29-2020 SALICYLATE 10.6 mg/dL Normal <=20.0 [facility] Comment on above: Performed By: #### A BG #### [facility] [address] [place], [place] [id number] Alfie Rosa M URINE MICROSCOPIC ONLYon AMORPHOUS CRYSTALS FEW Normal [facility] Comment on above: Performed By: #### D RUGRPD #### [facility] [address] [place], [place] [id number] Alfie Rosa M Bacteria LM.HPF (Urine sed) [#/Area] SMALL Abnormal NONE SEEN [facility] Comment on above: Performed By: #### D RUGRPD #### [facility] [address] [place], [place] [id number] Alfie Rosa M CAST NONE SEEN Normal NONE SEEN [facility] Comment on above: Performed By: #### D RUGRPD #### [facility] [address] [place], [place] [phone] Alfie Rosa M Crystals LM Nom (Urine sed) SEEN Abnormal NONE SEEN [facility] Comment on above: Performed By: #### D RUGRPD #### [facility] [address] [place], [place] [phone] Alfie Rosa M CULTURE INDICATED Normal [facility] Comment on above: Performed By: #### D RUGRPD #### [facility] [address] [place], [place] [phone] Alfie Rosa M Epithelial cells LM.HPF (Urine sed) [#/Area] FEW Abnormal NONE SEEN /RARE [facility] Comment on above: Performed By: #### D RUGRPD #### [facility] [address] [place], [place] [phone] Alfie Rosa M MUCOUS TRACE Abnormal NONE SEEN [facility] Comment on above: Performed By: #### D RUGRPD #### [facility] [address] [place], [place] [phone] Alfie Rosa M RBC (U) [#/Vol] 2-5 Abnormal 0-2 [facility] Comment on above: Performed By: #### D RUGRPD #### [facility] [address] [place], [place] [phone] Alfie Rosa M WBC (Bld) [#/Vol] 2-5 Abnormal NONE SEEN [facility] Comment on above: Performed By: #### D RUGRPD #### [facility] [address] [place], [place] [address] Alfie Mederos XR CHEST 1 Von 07-29-2020 XR CHEST 1 V CHEST X-RAY, 1 VIEW HISTORY: Acute respiratory distress.. COMPARISON: None. FINDINGS: The heart, quin, and mediastinum are unremarkable. There is right lower lobe airspace disease. There are no pleural effusions. There is no pneumothorax. IMPRESSION: Right lower lobe atelectasis or infiltrate. Electronically authenticated by: TAMIKO ÁLVAREZ Date: 2020-07-29 11:44 Normal [facility] Comprehensive Metabolic Pane galileo 06-10-2020 Albumin [Mass/Vol] 2.3 g/dL Low 3.2 - 5.2 g/dL [facility] ALP [Catalytic activity/Vol] 70 U/L 40 - 140 U/L [facility] ALT [Catalytic activity/Vol] 21 U/L 14 - 65 U/L [facility] Anion gap [Moles/Vol] 9 mmol/L Low 10 - 2 0 mmol/L [facility] AST [Catalytic activity/Vol] 14 U/L 0 - 45 U/L [facility] Bilirubin [Mass/Vol] 0.3 mg/dL 0 - 1.3 mg/dL [facility] Calcium [Mass/Vol] 8.4 mg/dL 8.4 - 10. 2 mg/dL [facility] Chloride [Moles/Vol] 111 mmol/L High 98 - 10 8 mmol/L [facility] Creatinine [Mass/Vol] 0.56 mg/dL 0.40 - 1.10 [facility] GFR/1.73 sq M predicted among non-blacks MDRD (S/P/Bld) [Vol rate/Area] The eGFR should be used for monitoring renal function only and not for medication dosing. [facility] GFR/1.73 sq M.predicted CKD-EPI (S/P/Bld) [Vol rate/Area] 128 >=60 mL/min/1.73 m2 [facility] Glucose [Mass/Vol] 267 mg/dL High 65 - 99 mg/dL [facility] HCO3 [Moles/Vol] 24 mmol/L 21 - 32 mmol/L [facility] Interpretation and review of laboratory results Abnormal [facility] Potassium [Moles/Vol] 3.9 mmol/L 3.5 - 5.1 mmol/L [facility] Protein [Mass/Vol] 5.5 g/dL Low 6 - 8 g/dL [facility] Sodium [Moles/Vol] 140 mmol/L 135 - 145 mmol/L [facility] Urea nitrogen [Mass/Vol] 9 mg/dL 8 - 25 mg/d L [facility] Urea nitrogen/Creatinine [Mass ratio] 16.1 mg/mg [facility] POC Glucoseon 06-10-2020 Glucose [Mass/Vol] 236 mg/dL High 65 - 99 mg/dL [facility] Interpretation and review of laboratory results Abnormal [facility] Glucose [Mass/Vol] 457 mg/dL Critically high 65 - 9 9 mg/dL [facility] Interpretation and review of laboratory results Abnormal [facility] Critical result acted upon time of test. Test performed at bedside. [facility] Glucose [Mass/Vol] 313 mg/dL High 65 - 99 mg/dL [facility] Interpretation and review of laboratory results Abnormal [facility] Phosphoruson 06-10-2020 Interpretation and review of laboratory results Normal [facility] Phosphate [Mass/Vol] 3.7 mg/dL 2.7 - 4 .5 mg/dL [facility] CBC WITH AUTO DIFFERENTIALon 06-09-2020 Basophils (Bld) [#/Vol] 0.01 10*3/uL [facility] Basophils/100 WBC (Bld) 0.2 % [facility] Eosinophils (Bld) [#/Vol] 0.03 10*3/uL [facility] Eosinophils/100 WBC (Bld) 0.5 % [facility] Erythrocyte distribution width (RBC) [Entitic vol] 13.9 % 11.6 - 14.8 % [facility] Hematocrit (Bld) [Volume fraction] 34.1 % Low 36 - 46 % [facility] Hemoglobin (Bld) [Mass/Vol] 11.8 g/dL Low 12 - 16 g/dL [facility] Immature granulocytes (Bld) [#/Vol] 0.02 10*3/uL [facility] Immature granulocytes/100 WBC (Bld) 0.30 % [facility] Comment on above: The IG parameter is the percentage of metamyelocytes, myelocytes and promyelocytes. An immature granulocyte count (IG) of 1% or more suggests the possibility of infection, an IG count of 3% is very likely related to an infection. Interpretation and review of laboratory results Abnormal [facility] Lymphocytes (Bld) [#/Vol] 1.33 10*3/uL [facility] Lymphocytes/100 WBC (Bld) 22.1 % [facility] MCH (RBC) [Entitic mass] 27.0 pg 26 - 34 pg [facility] MCHC (RBC) [Mass/Vol] 34.6 g/dL 31 - 37 g/dL [facility] MCV (RBC) [Entitic vol] 78.0 fL Low 80 - 100 fL [facility] Monocytes (Bld) [#/Vol] 0.57 10*3/uL [facility] Monocytes/100 WBC (Bld) 9.5 % [facility] Neutrophils (Bld) [#/Vol] 4.05 10*3/uL [facility] Neutrophils/100 WBC (Bld) 67.4 % [facility] Nucleated RBC (Bld) [#/Vol] 0.00 10*3/uL [facility] Nucleated RBC/100 WBC (Bld) [Ratio] 0.0 % [facility] Platelet mean volume (Bld) [Entitic vol] 9.8 fL 9.4 - 12.4 fL [facility] Platelets (Bld) [#/Vol] 255 10*3/uL [facility] RBC (Bld) [#/Vol] 4.37 10*6/uL [facility] WBC (Bld) [#/Vol] 6.01 10*3/uL [facility] Comprehensive Metabolic Pane galileo 06-09-2020 Albumin [Mass/Vol] 2.6 g/dL Low 3.2 - 5.2 g/dL [facility] ALP [Catalytic activity/Vol] 68 U/L 40 - 140 U/L [facility] ALT [Catalytic activity/Vol] 19 U/L 14 - 65 U/L [facility] Anion gap [Moles/Vol] 11 mmol/L 10 - 2 0 mmol/L [facility] AST [Catalytic activity/Vol] 11 U/L 0 - 45 U/L [facility] Bilirubin [Mass/Vol] 0.4 mg/dL 0 - 1.3 mg/dL [facility] Calcium [Mass/Vol] 8.5 mg/dL 8.4 - 10. 2 mg/dL [facility] Chloride [Moles/Vol] 110 mmol/L High 98 - 10 8 mmol/L [facility] Creatinine [Mass/Vol] 0.59 mg/dL 0.40 - 1.10 [facility] GFR/1.73 sq M predicted among non-blacks MDRD (S/P/Bld) [Vol rate/Area] The eGFR should be used for monitoring renal function only and not for medication dosing. [facility] GFR/1.73 sq M.predicted CKD-EPI (S/P/Bld) [Vol rate/Area] 126 >=60 mL/min/1.73 m2 [facility] Glucose [Mass/Vol] 239 mg/dL High 65 - 99 mg/dL [facility] HCO3 [Moles/Vol] 19 mmol/L Low 21 - 32 mmol/L [facility] Potassium [Moles/Vol] 3.2 mmol/L Low 3.5 - 5.1 mmol/L [facility] Protein [Mass/Vol] 5.8 g/dL Low 6 - 8 g/dL [facility]th Sodium [Moles/Vol] 137 mmol/L 135 - 145 mmol/L [facility] Urea nitrogen [Mass/Vol] 6 mg/dL Low 8 - 25 mg/d L [facility] Urea nitrogen/Creatinine [Mass ratio] 10.2 mg/mg [facility] Magnesium Levelon 06-09-2020 Interpretation and review of laboratory results Normal [facility] Magnesium [Mass/Vol] 1.8 mg/dL 1.6 - 2 .4 mg/dL [facility] Otheron 06-09-2020 Interpretation and review of laboratory results Abnormal [facility] Interpretation and review of laboratory results Abnormal [facility] POC Glucoseon 06-09-2020 Glucose [Mass/Vol] 303 mg/dL High 65 - 99 mg/dL [facility] Interpretation and review of laboratory results Abnormal [facility] Glucose [Mass/Vol] 161 mg/dL High 65 - 99 mg/dL [facility] Glucose [Mass/Vol] 335 mg/dL High 65 - 99 mg/dL [facility] Glucose [Mass/Vol] 264 mg/dL High 65 - 99 mg/dL [facility] Interpretation and review of laboratory results Abnormal [facility] Glucose [Mass/Vol] 247 mg/dL High 65 - 99 mg/dL [facility] Interpretation and review of laboratory results Abnormal [facility] Phosphoruson 06-09-2020 Phosphate [Mass/Vol] 2.1 mg/dL Low 2.7 - 4 .5 mg/dL [facility] Potassium Levelon 06-09-2020 Interpretation and review of laboratory results Normal [facility] Potassium [Moles/Vol] 3.6 mmol/L 3.5 - 5.1 mmol/L [facility] URINALYSISon 06-09-2020 Bacteria Auto Ql (U) None Seen None Se en /hpf [facility] Bilirubin Ql (U) Negative Negative [place] [facility] Refractometry automated (U) Clear Clear [facility] Color (U) Colorless Colorless, Yellow [facility] Glucose Auto test strip (U) [Mass/Vol] >=500 Abnormal Negative mg/dL [facility] Hemoglobin Auto test strip Ql (U) Negative Negative [facility] Interpretation and review of laboratory results Abnormal [facility] Ketones (U) [Mass/Vol] Negative Negat malissa mg/dL [facility] Leukocyte esterase Auto test strip Ql (U) Negative Negative [facility] Mucus Auto (Urine sed) [#/Area] Rare None Seen, Rare /lpf [facility] Nitrite Auto test strip Ql (U) Negative Negative [facility] pH (U) 6.0 [pH] [facility] Protein (U) [Mass/Vol] Negative Negat malissa mg/dL [facility] RBC Auto (Urine sed) [#/Area] 1 [facility] Specific gravity (U) [Rel density] 1.009 [facility] Urobilinogen (U) [Mass/Vol] <2.0 <2.0 mg/dL [facility] WBC Auto (Urine sed) [#/Area] 1 [facility] Microscopic examination is performed on all urinalysis samples and only positive findings are reported. The test for blood on the chemical analytic portion of urinalysis may also be positive due to hemoglobinuria and myoglobinuria and if red blood cells are present they are quantified by microscopic examination. [facility] Basic Metabolic Panelon 12-1 0 Anion gap [Moles/Vol] 18 mmol/L 10 - 2 0 mmol/L [facility] Calcium [Mass/Vol] 8.7 mg/dL 8.4 - 10. 2 mg/dL [facility] Chloride [Moles/Vol] 107 mmol/L 98 - 10 8 mmol/L [facility] Creatinine [Mass/Vol] 0.82 mg/dL 0.40 - 1.10 [facility] GFR/1.73 sq M predicted among non-blacks MDRD (S/P/Bld) [Vol rate/Area] The eGFR should be used for monitoring renal function only and not for medication dosing. [facility] GFR/1.73 sq M.predicted CKD-EPI (S/P/Bld) [Vol rate/Area] 98 >=60 mL/min/1.73 m2 [facility] Glucose [Mass/Vol] 321 mg/dL High 65 - 99 mg/dL [facility] HCO3 [Moles/Vol] 11 mmol/L Low 21 - 32 mmol/L [facility] Potassium [Moles/Vol] 4.0 mmol/L 3.5 - 5.1 mmol/L [facility] Sodium [Moles/Vol] 132 mmol/L Low 135 - 145 mmol/L [facility] Urea nitrogen [Mass/Vol] 7 mg/dL Low 8 - 25 mg/d L [facility] Urea nitrogen/Creatinine [Mass ratio] 8.5 mg/mg Low [facility] Anion gap [Moles/Vol] 14 mmol/L 10 - 2 0 mmol/L [facility] Calcium [Mass/Vol] 8.8 mg/dL 8.4 - 10. 2 mg/dL [facility] Chloride [Moles/Vol] 113 mmol/L High 98 - 10 8 mmol/L [facility] Creatinine [Mass/Vol] 0.63 mg/dL 0.40 - 1.10 [facility] GFR/1.73 sq M predicted among non-blacks MDRD (S/P/Bld) [Vol rate/Area] The eGFR should be used for monitoring renal function only and not for medication dosing. [facility] GFR/1.73 sq M.predicted CKD-EPI (S/P/Bld) [Vol rate/Area] 123 >=60 mL/min/1.73 m2 [facility] Glucose [Mass/Vol] 105 mg/dL High 65 - 99 mg/dL [facility] HCO3 [Moles/Vol] 11 mmol/L Low 21 - 32 mmol/L [facility] Interpretation and review of laboratory results Abnormal [facility] Potassium [Moles/Vol] 4.4 mmol/L 3.5 - 5.1 mmol/L [facility] Sodium [Moles/Vol] 134 mmol/L Low 135 - 145 mmol/L [facility] Urea nitrogen [Mass/Vol] 7 mg/dL Low 8 - 25 mg/d L [facility] Urea nitrogen/Creatinine [Mass ratio] 11.1 mg/mg [facility] Anion gap [Moles/Vol] 11 mmol/L 10 - 2 0 mmol/L [facility] Calcium [Mass/Vol] 8.9 mg/dL 8.4 - 10. 2 mg/dL [facility] Chloride [Moles/Vol] 113 mmol/L High 98 - 10 8 mmol/L [facility] Creatinine [Mass/Vol] 0.55 mg/dL 0.40 - 1.10 [facility] GFR/1.73 sq M predicted among non-blacks MDRD (S/P/Bld) [Vol rate/Area] The eGFR should be used for monitoring renal function only and not for medication dosing. [facility] GFR/1.73 sq M.predicted CKD-EPI (S/P/Bld) [Vol rate/Area] 129 >=60 mL/min/1.73 m2 [facility] Glucose [Mass/Vol] 134 mg/dL High 65 - 99 mg/dL [facility] HCO3 [Moles/Vol] 15 mmol/L Low 21 - 32 mmol/L [facility] Interpretation and review of laboratory results Abnormal [facility] Potassium [Moles/Vol] 3.0 mmol/L Low 3.5 - 5.1 mmol/L [facility] Sodium [Moles/Vol] 136 mmol/L 135 - 145 mmol/L [facility] Urea nitrogen [Mass/Vol] 7 mg/dL Low 8 - 25 mg/d L [facility] Urea nitrogen/Creatinine [Mass ratio] 12.7 mg/mg [facility] Beta-Hydroxybutyrateon 06-08 Beta hydroxybutyrate [Moles/Vol] 0.4 mmol/L High 0 - 0.3 mmol/L [facility] Beta hydroxybutyrate [Moles/Vol] 0.3 mmol/L 0 - 0.3 mmol/L [facility] CBC WITH AUTO DIFFERENTIALon 06-08-2020 Basophils (Bld) [#/Vol] 0.02 10*3/uL [facility] Basophils/100 WBC (Bld) 0.2 % [facility] Eosinophils (Bld) [#/Vol] 0.02 10*3/uL [facility] Eosinophils/100 WBC (Bld) 0.2 % [facility] Erythrocyte distribution width (RBC) [Entitic vol] 13.4 % 11.6 - 14.8 % [facility] Hematocrit (Bld) [Volume fraction] 37.5 % 36 - 46 % [facility] Hemoglobin (Bld) [Mass/Vol] 13.0 g/dL 12 - 16 g/dL [facility] Immature granulocytes (Bld) [#/Vol] 0.06 10*3/uL [facility] [facility] Immature granulocytes/100 WBC (Bld) 0.60 % [facility] Comment on above: The IG parameter is the percentage of metamyelocytes, myelocytes and promyelocytes. An immature granulocyte count (IG) of 1% or more suggests the possibility of infection, an IG count of 3% is very likely related to an infection. Interpretation and review of laboratory results Abnormal [facility] Lymphocytes (Bld) [#/Vol] 0.97 10*3/uL [facility] Lymphocytes/100 WBC (Bld) 10.3 % [facility] MCH (RBC) [Entitic mass] 27.1 pg 26 - 34 pg [facility] MCHC (RBC) [Mass/Vol] 34.7 g/dL 31 - 37 g/dL [facility] MCV (RBC) [Entitic vol] 78.1 fL Low 80 - 100 fL [facility] Monocytes (Bld) [#/Vol] 0.61 10*3/uL [facility] Monocytes/100 WBC (Bld) 6.5 % [facility] Neutrophils (Bld) [#/Vol] 7.76 10*3/uL High [facility] Neutrophils/100 WBC (Bld) 82.2 % [facility] Nucleated RBC (Bld) [#/Vol] 0.01 10*3/uL High [facility] Nucleated RBC/100 WBC (Bld) [Ratio] 0.1 % [facility] Platelet mean volume (Bld) [Entitic vol] 9.2 fL Low 9.4 - 12.4 fL [facility] Platelets (Bld) [#/Vol] 293 10*3/uL [facility] RBC (Bld) [#/Vol] 4.80 10*6/uL [facility] WBC (Bld) [#/Vol] 9.44 10*3/uL [facility] Comprehensive Metabolic Pane [facility] 06-08-2020 Albumin [Mass/Vol] 2.6 g/dL Low 3.2 - 5.2 g/dL [facility] ALP [Catalytic activity/Vol] 68 U/L 40 - 140 U/L [facility] ALT [Catalytic activity/Vol] 20 U/L 14 - 65 U/L [facility] Anion gap [Moles/Vol] 15 mmol/L 10 - 2 0 mmol/L [facility] AST [Catalytic activity/Vol] 17 U/L 0 - 45 U/L [facility] Bilirubin [Mass/Vol] 0.2 mg/dL 0 - 1.3 mg/dL [facility] Calcium [Mass/Vol] 8.5 mg/dL 8.4 - 10. 2 mg/dL [facility] Chloride [Moles/Vol] 112 mmol/L High 98 - 10 8 mmol/L [facility] Creatinine [Mass/Vol] 0.65 mg/dL 0.40 - 1.10 [facility] GFR/1.73 sq M predicted among non-blacks MDRD (S/P/Bld) [Vol rate/Area] The eGFR should be used for monitoring renal function only and not for medication dosing. [facility] GFR/1.73 sq M.predicted CKD-EPI (S/P/Bld) [Vol rate/Area] 122 >=60 mL/min/1.73 m2 [facility] Glucose [Mass/Vol] 255 mg/dL High 65 - 99 mg/dL [facility] HCO3 [Moles/Vol] 12 mmol/L Low 21 - 32 mmol/L [facility] Potassium [Moles/Vol] 3.6 mmol/L 3.5 - 5.1 mmol/L [facility] Protein [Mass/Vol] 5.8 g/dL Low 6 - 8 g/dL [facility] Sodium [Moles/Vol] 135 mmol/L 135 - 145 mmol/L [facility] Urea nitrogen [Mass/Vol] 9 mg/dL 8 - 25 mg/d L [facility] Urea nitrogen/Creatinine [Mass ratio] 13.8 mg/mg [facility] Albumin [Mass/Vol] 2.8 g/dL Low 3.2 - 5.2 g/dL [facility] ALP [Catalytic activity/Vol] 75 U/L 40 - 140 U/L [facility] ALT [Catalytic activity/Vol] 21 U/L 14 - 65 U/L [facility] Anion gap [Moles/Vol] 14 mmol/L 10 - 2 0 mmol/L [facility] AST [Catalytic activity/Vol] 20 U/L 0 - 45 U/L [facility] Bilirubin [Mass/Vol] 0.2 mg/dL 0 - 1.3 mg/dL [facility] Calcium [Mass/Vol] 8.7 mg/dL 8.4 - 10. 2 mg/dL [facility] Chloride [Moles/Vol] 115 mmol/L High 98 - 10 8 mmol/L [facility] Creatinine [Mass/Vol] 0.56 mg/dL 0.40 - 1.10 [facility] GFR/1.73 sq M predicted among non-blacks MDRD (S/P/Bld) [Vol rate/Area] The eGFR should be used for monitoring renal function only and not for medication dosing. [facility] GFR/1.73 sq M.predicted CKD-EPI (S/P/Bld) [Vol rate/Area] 128 >=60 mL/min/1.73 m2 [facility] Glucose [Mass/Vol] 100 mg/dL High 65 - 99 mg/dL [facility] HCO3 [Moles/Vol] 12 mmol/L Low 21 - 32 mmol/L [facility] Potassium [Moles/Vol] 3.7 mmol/L 3.5 - 5.1 mmol/L [facility] Protein [Mass/Vol] 6.3 g/dL 6 - 8 g/dL [facility] Sodium [Moles/Vol] 137 mmol/L 135 - 145 mmol/L [facility] Urea nitrogen [Mass/Vol] 9 mg/dL 8 - 25 mg/d L [facility] Urea nitrogen/Creatinine [Mass ratio] 16.1 mg/mg [facility] Albumin [Mass/Vol] 2.9 g/dL Low 3.2 - 5.2 g/dL [facility] ALP [Catalytic activity/Vol] 76 U/L 40 - 140 U/L [facility] ALT [Catalytic activity/Vol] 22 U/L 14 - 65 U/L [facility] Anion gap [Moles/Vol] 13 mmol/L 10 - 2 0 mmol/L [facility] AST [Catalytic activity/Vol] 18 U/L 0 - 45 U/L [facility] Bilirubin [Mass/Vol] 0.2 mg/dL 0 - 1.3 mg/dL [facility] Calcium [Mass/Vol] 8.4 mg/dL 8.4 - 10. 2 mg/dL [facility] Chloride [Moles/Vol] 115 mmol/L High 98 - 10 8 mmol/L [facility] Creatinine [Mass/Vol] 0.64 mg/dL 0.40 - 1.10 [facility] GFR/1.73 sq M predicted among non-blacks MDRD (S/P/Bld) [Vol rate/Area] The eGFR should be used for monitoring renal function only and not for medication dosing. [facility] GFR/1.73 sq M.predicted CKD-EPI (S/P/Bld) [Vol rate/Area] 123 >=60 mL/min/1.73 m2 [facility] Glucose [Mass/Vol] 124 mg/dL High 65 - 99 mg/dL [facility] HCO3 [Moles/Vol] 13 mmol/L Low 21 - 32 mmol/L [facility] Interpretation and review of laboratory results Abnormal [facility] Potassium [Moles/Vol] 3.3 mmol/L Low 3.5 - 5.1 mmol/L [facility] Protein [Mass/Vol] 6.4 g/dL 6 - 8 g/dL [facility] Sodium [Moles/Vol] 138 mmol/L 135 - 145 mmol/L [facility] Urea nitrogen [Mass/Vol] 8 mg/dL 8 - 25 mg/d L [facility] Urea nitrogen/Creatinine [Mass ratio] 12.5 mg/mg [facility] IRON STUDY WITH FERRITINon 1 08-09-2019 Ferritin [Mass/Vol] 56 ng/mL 13 - 150 ng/mL [facility] Interpretation and review of laboratory results Abnormal [facility] Iron [Mass/Vol] 15 ug/dL Low [facility] Iron binding capacity [Mass/Vol] 254 [facility] Iron saturation [Mass fraction] 6 % Low 20 - 50 % [facility] Magnesiumon 06-08-2020 Magnesium [Mass/Vol] 1.9 mg/dL 1.6 - 2 .4 mg/dL [facility] Otheron 06-08-2020 Interpretation and review of laboratory results Abnormal [facility] Interpretation and review of laboratory results Abnormal [facility] Interpretation and review of laboratory results Normal [facility] Interpretation and review of laboratory results Abnormal [facility] POC Glucoseon 06-08-2020 Glucose [Mass/Vol] 384 mg/dL High 65 - 99 mg/dL [facility] Interpretation and review of laboratory results Abnormal [facility] Glucose [Mass/Vol] 344 mg/dL High 65 - 99 mg/dL [facility] Glucose [Mass/Vol] 131 mg/dL High 65 - 99 mg/dL [facility] Interpretation and review of laboratory results Abnormal [facility] Glucose [Mass/Vol] 143 mg/dL High 65 - 99 mg/dL [facility] Interpretation and review of laboratory results Abnormal [facility] Glucose [Mass/Vol] 159 mg/dL High 65 - 99 mg/dL [facility] Interpretation and review of laboratory results Abnormal [facility] Glucose [Mass/Vol] 169 mg/dL High 65 - 99 mg/dL [facility] Interpretation and review of laboratory results Abnormal [facility] Glucose [Mass/Vol] 270 mg/dL High 65 - 99 mg/dL [facility] Interpretation and review of laboratory results Abnormal [facility] Glucose [Mass/Vol] 269 mg/dL High 65 - 99 mg/dL [facility] Interpretation and review of laboratory results Abnormal [facility] Glucose [Mass/Vol] 106 mg/dL High 65 - 99 mg/dL [facility] Interpretation and review of laboratory results Abnormal [facility] Glucose [Mass/Vol] 110 mg/dL High 65 - 99 mg/dL [facility] Interpretation and review of laboratory results Abnormal [facility] Glucose [Mass/Vol] 115 mg/dL High 65 - 99 mg/dL [facility] Interpretation and review of laboratory results Abnormal [facility] Glucose [Mass/Vol] 103 mg/dL High 65 - 99 mg/dL [facility] Interpretation and review of laboratory results Abnormal [facility] Glucose [Mass/Vol] 121 mg/dL High 65 - 99 mg/dL [facility] Interpretation and review of laboratory results Abnormal [facility] Glucose [Mass/Vol] 158 mg/dL High 65 - 99 mg/dL [facility] Interpretation and review of laboratory results Abnormal [facility] Glucose [Mass/Vol] 139 mg/dL High 65 - 99 mg/dL [facility] Interpretation and review of laboratory results Abnormal [facility] Phosphoruson 06-08-2020 Phosphate [Mass/Vol] 1.4 mg/dL Low 2.7 - 4 .5 mg/dL [facility] XR CHEST PA/APon 06-08-2020 XR CHEST PA/AP EXAMINATION: PORTABLE AP UPRIGHT CHEST: 06/08/2020 AT 2032 HOURS. HISTORY: Diminished to absent lung sounds on the right. Low-grade fever. COMPARISON FILMS: None. FINDINGS: Patient is somewhat rotated, lordotic. The visualized osseous structures appear intact. The heart size seems normal. The aorta is normal contour. There is some patchy density [id number]-ihczn lung on the right without discrete focal consolidating infiltrates. No pleural effusions, pulmonary edema or pneumothorax. IMPRESSION: 1. Questionable patchy vague densities in the right lower lobe distribution which could be a nonspecific finding however atypical bacterial or viral pneumonia would be difficult to exclude. 2. No acute process otherwise or pleural effusions. [employer] Workstation ID: [id number] Dictated by: MICHAEL DEE on FriJun 08, 2020 9:43:13 PM EST Transcribed by: MORGAN BROWN on FriJun 08, 2020 9:55:57 PM EST Finalized by: MICHAEL DEE on FriJun 08, 2020 10:02:49 PM EST Normal [facility] Comment on above: Order Comment: Injur y/Trauma or Illness?:Illness/Other How long have you had these symptoms (acute/chronic)?:Acute Reason for exam?:diminished to absent lung sounds on R. Low grade fever. History of cancer?:ukn Surgeries, chemotherapy, or radiation?:ukn Type of Exam?:Initial Additional signs and symptoms?:diminished to absent lung sounds on R. Low grade fever. XR Chest 1 Viewon 06-08-2020 EXAMINATION: PORTABLE AP UPRIGHT CHEST: 06/08/2020 AT 2032 HOURS. HISTORY: Diminished to absent lung sounds on the right. Low-grade fever. COMPARISON FILMS: None. FINDINGS: Patient is somewhat rotated, lordotic. The visualized osseous structures appear intact. The heart size seems normal. The aorta is normal contour. There is some patchy density jok-ap-scfud lung on the right without discrete focal consolidating infiltrates. No pleural effusions, pulmonary edema or pneumothorax. [facility] 1. Questionable patchy vague densities in the right lower lobe distribution which could be a nonspecific finding however atypical bacterial or viral pneumonia would be difficult to exclude. 2. No acute process otherwise or pleural effusions. [employer] Workstation ID: [id number] [facility] Interface, Rad In [employer] - 06/08/2020 10:05 PM EST EXAMINATION: PORTABLE AP UPRIGHT CHEST: 06/08/2020 AT 2032 HOURS. HISTORY: Diminished to absent lung sounds on the right. Low-grade fever. COMPARISON FILMS: None. FINDINGS: Patient is somewhat rotated, lordotic. The visualized osseous structures appear intact. The heart size seems normal. The aorta is normal contour. There is some patchy density xpz-il-eothe lung on the right without discrete focal consolidating infiltrates. No pleural effusions, pulmonary edema or pneumothorax. IMPRESSION: 1. Questionable patchy vague densities in the right lower lobe distribution which could be a nonspecific finding however atypical bacterial or viral pneumonia would be difficult to exclude. 2. No acute process otherwise or pleural effusions. [employer] Workstation ID: [id number] [facility] Basic Metabolic Panelon 12-0 Anion gap [Moles/Vol] 16 mmol/L 10 - 2 0 mmol/L [facility] Calcium [Mass/Vol] 8.2 mg/dL Low 8.4 - 10. 2 mg/dL [facility] Chloride [Moles/Vol] 114 mmol/L High 98 - 10 8 mmol/L [facility] Creatinine [Mass/Vol] 0.71 mg/dL 0.40 - 1.10 [facility] GFR/1.73 sq M predicted among non-blacks MDRD (S/P/Bld) [Vol rate/Area] The eGFR should be used for monitoring renal function only and not for medication dosing. [facility] GFR/1.73 sq M.predicted CKD-EPI (S/P/Bld) [Vol rate/Area] 117 >=60 mL/min/1.73 m2 [facility] Glucose [Mass/Vol] 172 mg/dL High 65 - 99 mg/dL [facility] HCO3 [Moles/Vol] 10 mmol/L Low 21 - 32 mmol/L [facility] Interpretation and review of laboratory results Abnormal [facility] Potassium [Moles/Vol] 2.8 mmol/L Low 3.5 - 5.1 mmol/L [facility] Sodium [Moles/Vol] 137 mmol/L 135 - 145 mmol/L [facility] Urea nitrogen [Mass/Vol] 7 mg/dL Low 8 - 25 mg/d L [facility] Urea nitrogen/Creatinine [Mass ratio] 9.9 mg/mg Low [facility] Beta-Hydroxybutyrateon 06-07 Beta hydroxybutyrate [Moles/Vol] 1.8 mmol/L High 0 - 0.3 mmol/L [facility] Interpretation and review of laboratory results Abnormal [facility] Beta hydroxybutyrate [Moles/Vol] 5.6 mmol/L High 0 - 0.3 mmol/L [facility] Interpretation and review of laboratory results Abnormal [facility] CBC WITH AUTO DIFFERENTIALon 06-07-2020 Basophils (Bld) [#/Vol] 0.04 10*3/uL [facility] Basophils/100 WBC (Bld) 0.3 % [facility] Eosinophils (Bld) [#/Vol] 0.00 10*3/uL [facility] Eosinophils/100 WBC (Bld) 0.0 % [facility] Erythrocyte distribution width (RBC) [Entitic vol] 13.5 % 11.6 - 14.8 % [facility] Hematocrit (Bld) [Volume fraction] 46.4 % High 36 - 46 % [facility] Hemoglobin (Bld) [Mass/Vol] 14.7 g/dL 12 - 16 g/dL [facility] Immature granulocytes (Bld) [#/Vol] 0.09 10*3/uL [facility] Immature granulocytes/100 WBC (Bld) 0.60 % [facility] Comment on above: The IG parameter is the percentage of metamyelocytes, myelocytes and promyelocytes. An immature granulocyte count (IG) of 1% or more suggests the possibility of infection, an IG count of 3% is very likely related to an infection. Interpretation and review of laboratory results Abnormal [facility] Lymphocytes (Bld) [#/Vol] 1.42 10*3/uL [facility] Lymphocytes/100 WBC (Bld) 9.1 % [facility] MCH (RBC) [Entitic mass] 27.2 pg 26 - 34 pg [facility] MCHC (RBC) [Mass/Vol] 31.7 g/dL 31 - 37 g/dL [facility] MCV (RBC) [Entitic vol] 85.8 fL 80 - 100 fL [facility] Monocytes (Bld) [#/Vol] 0.82 10*3/uL [facility] Monocytes/100 WBC (Bld) 5.3 % [facility] Neutrophils (Bld) [#/Vol] 13.19 10*3/uL High [facility] Neutrophils/100 WBC (Bld) 84.7 % [facility] Nucleated RBC (Bld) [#/Vol] 0.00 10*3/uL [facility] Nucleated RBC/100 WBC (Bld) [Ratio] 0.0 % [facility] Platelet mean volume (Bld) [Entitic vol] 9.5 fL 9.4 - 12.4 fL [facility] Platelets (Bld) [#/Vol] 302 10*3/uL [facility] RBC (Bld) [#/Vol] 5.41 10*6/uL High [facility] WBC (Bld) [#/Vol] 15.56 10*3/uL [facility] Metabolic Pane galileo 06-07-2020 Albumin [Mass/Vol] 3.4 g/dL 3.2 - 5.2 g/dL [facility] ALP [Catalytic activity/Vol] 94 U/L 40 - 140 U/L [facility] ALT [Catalytic activity/Vol] 27 U/L 14 - 65 U/L [facility] Anion gap [Moles/Vol] 22 mmol/L High 10 - 2 0 mmol/L [facility] AST [Catalytic activity/Vol] 27 U/L 0 - 45 U/L [facility] Bilirubin [Mass/Vol] 0.4 mg/dL 0 - 1.3 mg/dL [facility] Calcium [Mass/Vol] 8.0 mg/dL Low 8.4 - 10. 2 mg/dL [facility] Chloride [Moles/Vol] 113 mmol/L High 98 - 10 8 mmol/L [facility] Creatinine [Mass/Vol] 0.73 mg/dL 0.40 - 1.10 [facility] GFR/1.73 sq M predicted among non-blacks MDRD (S/P/Bld) [Vol rate/Area] The eGFR should be used for monitoring renal function only and not for medication dosing. [facility] GFR/1.73 sq M.predicted CKD-EPI (S/P/Bld) [Vol rate/Area] 113 >=60 mL/min/1.73 m2 [facility] Glucose [Mass/Vol] 199 mg/dL High 65 - 99 mg/dL [facility] HCO3 [Moles/Vol] 6 mmol/L Critically low 21 - 32 mmol/L [facility] Interpretation and review of laboratory results Abnormal [facility] Potassium [Moles/Vol] 4.1 mmol/L 3.5 - 5.1 mmol/L [facility] Protein [Mass/Vol] 7.1 g/dL 6 - 8 g/dL [facility] Sodium [Moles/Vol] 137 mmol/L 135 - 145 mmol/L [facility] Urea nitrogen [Mass/Vol] 11 mg/dL 8 - 25 mg/d L [facility] Urea nitrogen/Creatinine [Mass ratio] 15.1 mg/mg [facility] Hemoglobin A1con 06-07-2020 Average glucose Estimated from glycated hemoglobin mass conc (Bld) 464 mg/dL High 74 - 114 mg/dL [facility] HbA1c (Bld) [Mass fraction] 17.8 % High 4.2 - 5.6 % [facility] Interpretation and review of laboratory results Abnormal [facility] Normal: 4.2% - 5.6% Increased risk for diabetes: 5.7% - 6.4% Diabetes: >= 6.5% Pediatrics: No established reference range Estimated average glucose: 74-114 mg/dL [facility] Magnesium Levelon 06-07-2020 Interpretation and review of laboratory results Normal [facility] Magnesium [Mass/Vol] 2.0 mg/dL 1.6 - 2 .4 mg/dL [facility] POC Glucoseon 06-07-2020 Glucose [Mass/Vol] 135 mg/dL High 65 - 99 mg/dL [facility] Interpretation and review of laboratory results Abnormal [facility] Glucose [Mass/Vol] 164 mg/dL High 65 - 99 mg/dL [facility] Interpretation and review of laboratory results Abnormal [facility] Glucose [Mass/Vol] 190 mg/dL High 65 - 99 mg/dL [facility] Interpretation and review of laboratory results Abnormal [facility] Glucose [Mass/Vol] 180 mg/dL High 65 - 99 mg/dL [facility] Interpretation and review of laboratory results Abnormal [facility] Glucose [Mass/Vol] 159 mg/dL High 65 - 99 mg/dL [facility] Interpretation and review of laboratory results Abnormal [facility] Glucose [Mass/Vol] 172 mg/dL High 65 - 99 mg/dL [facility] Interpretation and review of laboratory results Abnormal [facility] Glucose [Mass/Vol] 200 mg/dL High 65 - 99 mg/dL [facility] Interpretation and review of laboratory results Abnormal [facility] Glucose [Mass/Vol] 201 mg/dL High 65 - 99 mg/dL [facility] Interpretation and review of laboratory results Abnormal [facility] Glucose [Mass/Vol] 228 mg/dL High 65 - 99 mg/dL [facility] Interpretation and review of laboratory results Abnormal [facility] Glucose [Mass/Vol] 238 mg/dL High 65 - 99 mg/dL [facility] Interpretation and review of laboratory results Abnormal [facility] Glucose [Mass/Vol] 178 mg/dL High 65 - 99 mg/dL [facility] Interpretation and review of laboratory results Abnormal [facility] Glucose [Mass/Vol] 186 mg/dL High 65 - 99 mg/dL [facility] Interpretation and review of laboratory results Abnormal [facility] Phosphoruson 06-07-2020 Interpretation and review of laboratory results Abnormal [facility] Phosphate [Mass/Vol] 2.0 mg/dL Low 2.7 - 4 .5 mg/dL [facility] TSH with Reflex Free T4on Interpretation and review of laboratory results Normal [facility] TSH Qn 0.66 m[IU]/L [facility] Vital Signs Date Time Vital Sign Value Performing Clinician Facility 07-04-2023 12:00-0500 Body temperature 98.01 [degF] Letty Yee MD Work Phone: [facility] 07-04-2023 12:00-0500 Diastolic blood pressure 78 mm[Hg] Letty Yee MD Work Phone: [facility] 07-04-2023 12:00-0500 Heart rate 102 /min Letty Yee MD Work Phone: [facility] 07-04-2023 12:00-0500 Respiratory rate 14 /min Letty Yee MD Work Phone: [facility] 07-04-2023 12:00-0500 SaO2% (BldA) [Mass fraction] 99 % Letty Yee MD Work Phone: [facility] 07-04-2023 12:00-0500 Systolic blood pressure 130 mm[Hg] Letty Yee MD Work Phone: [facility] 07-04-2023 02:48-0500 Body mass index (BMI) [Ratio] 21.76 kg/m2 Letty Yee MD Work Phone: [facility] 07-04-2023 02:48-0500 Body weight 64.9 kg Letty Yee MD Work Phone: [facility] 07-03-2023 10:34-0500 Body height 172.7 cm Letty Yee MD Work Phone: [facility] 07-02-2023 19:16-0500 SaO2% (BldA) [Mass fraction] 100 % SAENZAYAH YEE [facility] Comment on above: Performed By: #### VBG #### [facility] ([id number]) [address] [place] [address] 07-02-2023 17:18-0500 Body temperature 98.6 [degF] Letty Yee MD Work Phone: [facility] 07-02-2023 17:18-0500 SaO2% (BldA) [Mass fraction] 100 % Letty Yee MD Work Phone: [facility] 08-01-2020 19:49-0500 Body Temperature 98.01 [degF] [facility], [place] 08-01-2020 19:49-0500 BP Diastolic 94 mm[Hg] [facility] , [place] 08-01-2020 19:49-0500 BP Systolic 146 mm[Hg] [facility] , [place] 02-02-2021 19:49-0500 Pulse (Heart Rate) 59 /min [facility], [place] 08-01-2020 19:49-0500 Respiratory Rate 18 /min [facility], [place] 08-01-2020 12:00-0500 Pulse Oximetry 92 % [facility] , [place] 08-01-2020 06:00-0500 BMI (Body Mass Index) 22.31 kg/m2 [facility], [place] 08-01-2020 06:00-0500 Body weight 58.97 kg [facility] [place] 07-29-2020 20:00-0500 Height 162.6 cm [facility] [place] 07-29-2020 19:50-0500 Respiratory rate NOT REPORTED [facility], [place] 06-10-2020 15:59-0500 Body Temperature 98.1 [degF] [facility] 06-10-2020 15:59-0500 BP Diastolic 80 mm[Hg] [facility] 15:59-0500 BP Systolic 115 mm[Hg] [facility] 06-10-2020 15:59-0500 Pulse (Heart Rate) 67 /min [facility] 06-10-2020 15:59-0500 Pulse Oximetry 99 % [facility] 06-10-2020 15:59-0500 Respiratory Rate 16 /min [facility] 06-10-2020 04:39-0500 BMI (Body Mass Index) 20.18 kg/m2 [facility] 06-10-2020 04:39-0500 Body weight 60.2 kg Go[facility] 06-07-2020 12:31-0500 Height 172.7 cm [facility] Encounter Date Encounter Type Care Provider Facility Start: 07-04-2023 End: 07-04-2023 [facility] Start: 07-03-2023 End: 07-05-2023 Evaluation and management of inpatient CHAS DARDEN [facility] Start: 07-02-2023 End: 07-04-2023 Evaluation and management of inpatient SAENZ MIKY YEE [facility] Start: 07-02-2023 ambulatory ARCADIO IGLESIAS [facility] Start: 07-02-2023 End: 07-04-2023 Evaluation and management of inpatient Letty Miky Yee MD Work Phone: [facility] - GEN 7 ICU Comment on above: Diabetic ketoacidosi s without coma associated with type 1 diabetes mellitus ([facility]) (Primary Dx); Type 1 diabetes mellitus with ketoacidosis without coma ([facility]) Start: 06-12-2023 End: 06-13-2023 Evaluation and management of inpatient ARCADIO IGLESIAS Facility:[facility] Start: 05-30-2023 End: 05-30-2023 Emergency department patient visit ARCADIO IGLESIAS Facility:[facility] Start: 03-18-2023 End: 03-20-2023 Evaluation and management of inpatient MARTIN DAVIS [facility] Start: 03-17-2023 End: 03-18-2023 Emergency department patient visit Linn H lang Facility:[facility] Start: 03-16-2023 End: 03-16-2023 ambulatory ARCADIO IGLESIAS Facility:[facility] Start: 08-25-2022 End: 08-26-[address] ARCADIO IGLESIAS Facility:[facility] Start: 03-18-2022 End: 03-18-[address] ARCADIO IGLESIAS Facility:[facility] Start: 12-26-[address] ARCADIO IGLESIAS Facil ity:[facility] Start: 08-17-2020 End: 08-17-2020 Orders Only Uyen Otto Work Phone: [facility] Start: 07-29-2020 End: 08-02-2020 Evaluation and management of inpatient Naomy Morse Work Phone: [facility]c/Med [facility] Start: 07-29-2020 End: 07-29-2020 Patient encounter procedure [facility] Facility:[facility] Start: 06-07-2020 End: 06-10-2020 Evaluation and management of inpatient PHYSICIAN NO [facility] Start: 06-07-2020 End: 06-10-2020 Evaluation and management of inpatient Goitom Andom Asgedom Work Phone: [facility] Surgical [address] [place] Start: 07-07-2018 End: 07-08-2018 Patient encounter procedure DEFAULT PHYSICIAN Facility:[facility] Procedures Date Procedure Procedure Detail Performing Clinician Start: 07-04-2023 End: 07-04-2023 Electrolyte panel Tim Benites i, MD Work Phone: Start: 07-04-2023 End: 07-04-2023 Gluc bld gluc mntr dev cleared fda spec home use Letty Yee MD Work Phone: Start: 07-03-2023 Electrolyte panel Tim Mensah MD Work Phone: Start: 07-03-2023 End: 07-03-2023 Gluc bld gluc mntr dev cleared fda spec home use Letty Yee MD Work Phone: Start: 07-03-2023 End: 07-03-2023 Electrolyte panel Tim Benites i, MD Work Phone: Start: 07-03-2023 Gluc bld gluc mntr d ev cleared fda spec home use Letty Yee MD Work Phone: Start: 07-03-2023 Electrolyte panel Tim Mensah MD Work Phone: Start: 07-03-2023 Echo tthrc r-t 2d w/ wom-mode compl spec&colr d Chas Darden DO Work Phone: Start: 07-03-2023 Gluc bld gluc mntr d ev cleared fda spec home use Letty Yee MD Work Phone: Start: 07-03-2023 Electrolyte panel Tim Mensah MD Work Phone: Start: 07-03-2023 Gluc bld gluc mntr d ev cleared fda spec home use Letty Yee MD Work Phone: Start: 07-03-2023 End: 07-03-2023 Electrolyte panel Tim Benites i, MD Work Phone: Start: 07-03-2023 Gluc bld gluc mntr d ev cleared fda spec home use Letty Yee MD Work Phone: Start: 07-03-2023 Gluc bld gluc mntr d ev cleared fda spec home use Letty Yee MD Work Phone: Start: 07-03-2023 Comprehensive metabo lic panel Ronal Logan MD Work Phone: Start: 07-03-2023 End: 07-03-2023 Gluc bld gluc mntr dev cleared fda spec home use Letty Yee MD Work Phone: Start: 07-03-2023 End: 07-03-2023 Electrolyte panel Tim Benites i, MD Work Phone: Start: 07-02-2023 Gluc bld gluc mntr d ev cleared fda spec home use Letty Yee MD Work Phone: Start: 07-02-2023 End: 07-02-2023 Electrolyte panel Tim Benites i, MD Work Phone: Start: 07-02-2023 Gluc bld gluc mntr d ev cleared fda spec home use Letty Yee MD Work Phone: Start: 07-02-2023 End: 07-02-2023 Gluc bld gluc mntr dev cleared fda spec home use Letty Yee MD Work Phone: Start: 07-02-2023 Blood gases any comb ination ph pco2 po2 co2 hco3 Letty Yee MD Work Phone: Start: 07-02-2023 End: 07-02-2023 Comprehensive metabolic panel Ronal Logan MD Work Phone: Start: 08-01-2020 Assay of magnesium Divy a Tia Work Phone: Start: 08-01-2020 Assay of phosphorus inorganic Vikki Tia Work Phone: Start: 08-01-2020 Basic metabolic pane l calcium total Vikki Tia Work Phone: Start: 08-01-2020 Urine test visual color cmprsn meths Yuki Ramsey Work Phone: Start: 08-01-2020 Glucose blood reagent strip Naomy Khan Work Phone: Start: 08-01-2020 Assay of magnesium Divy a Tia Work Phone: Start: 08-01-2020 Assay of phosphorus inorganic Vikki Tia Work Phone: Start: 08-01-2020 Basic metabolic pane l calcium total Vikki Tia Work Phone: Start: 08-01-2020 Assay of magnesium Krit ika George Work Phone: Start: 08-01-2020 Assay of phosphorus inorganic Chela George Work Phone: Start: 08-01-2020 Basic metabolic pane l calcium total Chela George Work Phone: Start: 08-01-2020 Blood count complete auto&auto difrntl wbc E Chin Joon Work Phone: Start: 08-01-2020 Glucose blood reagent strip Stan Ana Work Phone: Start: 08-01-2020 Glucose blood reagent strip Stan Ana Work Phone: Start: 08-01-2020 Assay of magnesium Krit ika George Work Phone: Start: 08-01-2020 Assay of phosphorus inorganic Chela George Work Phone: Start: 02-02-2021 Basic metabolic pane l calcium total Chela George Work Phone: Start: 08-01-2020 Assay of magnesium Krit ika George Work Phone: Start: 08-01-2020 Assay of phosphorus inorganic Chela George Work Phone: Start: 08-01-2020 Basic metabolic pane l calcium total Chela George Work Phone: Start: 07-31-2020 Assay of magnesium Krit ika George Work Phone: Start: 07-31-2020 Assay of phosphorus inorganic Chela George Work Phone: Start: 07-31-2020 Basic metabolic pane l calcium total Chela George Work Phone: Start: 07-31-2020 Assay of magnesium Krit ika George Work Phone: Start: 07-31-2020 Assay of phosphorus inorganic Chela George Work Phone: Start: 07-31-2020 Basic metabolic pane l calcium total Chela George Work Phone: Start: 07-31-2020 Hemoglobin glycosylated a1c Vikki Weber Work Phone: Start: 07-31-2020 Assay of magnesium Krit ika George Work Phone: Start: 07-31-2020 Assay of phosphorus inorganic Chela George Work Phone: Start: 07-31-2020 Basic metabolic pane l calcium total Chela George Work Phone: Start: 07-31-2020 End: 07-31-2020 Glucose blood reagent strip Stan Ana Work Phone: Start: 07-31-2020 Assay of magnesium Krit ika George Work Phone: Start: 07-31-2020 Assay of phosphorus inorganic Chela George Work Phone: Start: 07-31-2020 Basic metabolic pane l calcium total Chela George Work Phone: Start: 07-31-2020 Assay of magnesium Krit ika George Work Phone: Start: 07-31-2020 Assay of phosphorus inorganic Chela George Work Phone: Start: 07-31-2020 Basic metabolic pane l calcium total Chela George Work Phone: Start: 07-31-2020 Assay of magnesium Krit ika George Work Phone: Start: 07-31-2020 Assay of phosphorus inorganic Chela George Work Phone: Start: 07-31-2020 Basic metabolic pane l calcium total Chela George Work Phone: Start: 07-31-2020 Glucose blood reagent strip Stan Ana Work Phone: Start: 07-30-2020 Potassium serum plas ma/whole blood Chela George Work Phone: Start: 07-30-2020 Glucose blood reagent strip Stan Ana Work Phone: Start: 07-30-2020 Glucose blood reagent strip Stan Ana Work Phone: Start: 07-30-2020 Assay of magnesium Krit ika George Work Phone: Start: 07-30-2020 Assay of phosphorus inorganic Chela George Work Phone: Start: 07-30-2020 Basic metabolic pane l calcium total Chela George Work Phone: Start: 07-30-2020 End: 07-30-2020 Glucose blood reagent strip Stan Ana Work Phone: Start: 07-30-2020 End: 07-30-2020 CULTURE, BLOOD 1 Chela George Work Phone: Start: 07-30-2020 Assay of magnesium Krit ika George Work Phone: Start: 07-30-2020 Assay of phosphorus inorganic Chela George Work Phone: Start: 07-30-2020 Basic metabolic pane l calcium total Chela George Work Phone: Start: 07-30-2020 End: 07-30-2020 Glucose blood reagent strip Stan Ana Work Phone: Start: 07-30-2020 Glucose blood reagent strip Stan Ana Work Phone: Start: 07-30-2020 Assay of magnesium Krit ika George Work Phone: Start: 07-30-2020 Assay of phosphorus inorganic Chlea George Work Phone: Start: 07-30-2020 Basic metabolic pane l calcium total Chela George Work Phone: Start: 07-30-2020 End: 07-30-2020 Glucose blood reagent strip Stan Ana Work Phone: Start: 07-30-2020 End: 07-30-2020 Glucose blood reagent strip Stan Ana Work Phone: Start: 07-30-2020 Glucose blood reagent strip Stan Ana Work Phone: Start: 07-30-2020 Assay of magnesium Krit ika George Work Phone: Start: 07-30-2020 Assay of phosphorus inorganic Chela George Work Phone: Start: 07-30-2020 Basic metabolic pane l calcium total Chela George Work Phone: Start: 07-30-2020 Ecg routine ecg w/le ast 12 lds w/i&r Chela George Work Phone: Start: 07-30-2020 EKG REPORT Hpf Scanni ng Start: 07-30-2020 Blood count complete auto&auto difrntl wbc Chela George Work Phone: Start: 07-30-2020 SPECIMEN REJECTION [facility] Work Phone: Start: 07-30-2020 End: 07-30-2020 Glucose blood reagent strip Stan Ana Work Phone: Start: 07-30-2020 TOX SCR, COMPLETE BL Ve nkat [facility] Work Phone: Start: 07-30-2020 End: 07-30-2020 Glucose blood reagent strip Stan Ana Work Phone: Start: 07-30-2020 ARTERIAL BLOOD GAS, POC Stan Ana Work Phone: Start: 07-30-2020 Glucose blood reagent strip Stan Ana Work Phone: Start: 07-30-2020 Assay of acetaminophen Chela George Work Phone: Start: 07-30-2020 Assay of ethanol Kritik a George Work Phone: Start: 07-30-2020 Assay of lipase Chela George Work Phone: Start: 07-30-2020 Assay of magnesium Krit ika George Work Phone: Start: 07-30-2020 Assay of phosphorus inorganic Chela George Work Phone: Start: 07-30-2020 Assay of salicylate Kri lloyd George Work Phone: Start: 07-30-2020 Assay of thyroid sti mulating hormone tsh Chela George Work Phone: Start: 07-30-2020 Basic metabolic pane l calcium total Chela George Work Phone: Start: 07-30-2020 Hepatic function panel Chela George Work Phone: Start: 07-30-2020 TOXIC TRICYCLIC SC,B Kr itika George Work Phone: Start: 07-30-2020 Glucose blood reagent strip Stan Ana Work Phone: Start: 07-30-2020 ARTERIAL BLOOD GAS, POC Stan Ana Work Phone: Start: 07-30-2020 Gluc bld gluc mntr d ev cleared fda spec home use Stan Ana Work Phone: Start: 07-30-2020 LACTIC ACID,POINT OF CARE Stan Ana Work Phone: Start: 07-30-2020 End: 07-30-2020 Glucose blood reagent strip Stan Glance App Work Phone: Start: 07-30-2020 Assay of magnesium Vaibhav Vazquez Work Phone: Start: 07-30-2020 Assay of phosphorus inorganic Chela Vazquez Work Phone: Start: 07-30-2020 Basic metabolic pane l calcium total Chela Nortonthra Work Phone: Start: 07-30-2020 Radiologic exam ches t single view Chela Corteza Work Phone: Start: 07-30-2020 End: 07-30-2020 Glucose blood reagent strip Stan Ana Work Phone: Start: 07-30-2020 Potassium serum plas ma/whole blood Chela Nortonthra Work Phone: Start: 07-30-2020 End: 07-30-2020 ARTERIAL BLOOD GAS, POC Stan Ana Work Phone: Start: 07-30-2020 End: 07-30-2020 Gluc bld gluc mntr dev cleared fda spec home use Stan Ana Work Phone: Start: 07-30-2020 End: 07-30-2020 LACTIC ACID,POINT OF CARE Stan Ana Work Phone: Start: 07-30-2020 Glucose blood reagent strip Stan Ana Work Phone: Start: 07-29-2020 ANION GAP (CALC) POC Vi nod Ana Work Phone: Start: 07-29-2020 ARTERIAL BLOOD GAS, POC Stan Ana Work Phone: Start: 07-29-2020 Blood count hemoglobin Stanrosalia Villai Work Phone: Start: 07-29-2020 CALCIUM, IONIC (POC) Vi nod Ana Work Phone: Start: 07-29-2020 Chloride [Moles/Vol] Vi nod Ana Work Phone: Start: 07-29-2020 CREATININE W/GFR POI NT OF CARE Stanrosalia Perez Work Phone: Start: 07-29-2020 Gluc bld gluc mntr d ev cleared fda spec home use Stan Perez Work Phone: Start: 07-29-2020 LACTIC ACID,POINT OF CARE Stan Perez Work Phone: Start: 07-29-2020 Potassium [Moles/Vol] V inod Ana Work Phone: Start: 07-29-2020 Sodium [Moles/Vol] Vino d Ana Work Phone: Start: 07-29-2020 Assay of magnesium Krit ika George Work Phone: Start: 07-29-2020 Assay of phosphorus inorganic Chela George Work Phone: Start: 07-29-2020 Basic metabolic pane l calcium total Chela George Work Phone: Start: 07-29-2020 End: 07-29-2020 Glucose blood reagent strip Stan Perez Work Phone: Start: 07-29-2020 MRSA BY PCR Stan Moralesat ri Work Phone: Start: 07-29-2020 Assay of lactate Kritik a George Work Phone: Start: 07-29-2020 Blood gases any comb ination ph pco2 po2 co2 hco3 Chela Vazquez Work Phone: Start: 07-29-2020 Assay of magnesium Vaibhav Vazquez Work Phone: Start: 07-29-2020 Assay of phosphorus inorganic Chela Vazquez Work Phone: Start: 07-29-2020 Basic metabolic pane l calcium total Chela Vazquez Work Phone: Start: 07-29-2020 Blood count complete auto&auto difrntl wbc Chela Vazquez Work Phone: Start: 07-29-2020 Drug screen class list a Chela Vazquez Work Phone: Start: 07-29-2020 Urinalysis microscopic only Chela Vazquez Work Phone: Start: 07-29-2020 Urnls dip stick/tabl et rgnt auto w/o microscopy Chela Vazquez Work Phone: Start: 07-29-2020 End: 07-30-2020 Glucose blood reagent strip Stan Perez Work Phone: Start: 06-10-2020 Glucose [Mass/volume ] in Blood Cam Wasserman Work Phone: Start: 06-10-2020 Glucose [Mass/volume ] in Blood Favian.Arcadio Pinasombol Nohay Work Phone: Start: 06-10-2020 Glucose [Mass/volume ] in Blood A.Arcadio Magsombol Nohay Work Phone: Start: 06-10-2020 Comprehensive metabo lic 2000 panel - Serum or Plasma Favian.Arcadio Pinasombol Nohay Work Phone: Start: 06-10-2020 Phosphate [Mass/volu me] in Serum or Plasma Favian.Arcadio Pinasombol Nohay Work Phone: Start: 06-09-2020 Glucose [Mass/volume ] in Blood Favian.Arcadio Felixmbol Nolovey Work Phone: Start: 06-09-2020 Urinalysis Binh Perkinsol Nolovey Work Phone: Start: 06-09-2020 Glucose [Mass/volume ] in Blood A.Arcadio Perkinsol Nolovey Work Phone: Start: 06-09-2020 Potassium [Moles/vol ume] in Serum or Plasma A.Arcadio Felixmbol Nohay Work Phone: Start: 06-09-2020 Glucose [Mass/volume ] in Blood A.Arcadio Felixmbol Nolovey Work Phone: Start: 06-09-2020 Glucose [Mass/volume ] in Blood A.Arcadio Perkinsol Nolovey Work Phone: Start: 06-09-2020 Incentive spirometry A. Arcadio Felixmbol Nohay Work Phone: Start: 06-09-2020 Comprehensive metabo lic 2000 panel - Serum or Plasma Favian.Arcadio Felixmbol Nolovey Work Phone: Start: 06-09-2020 Magnesium [Mass/volu me] in Serum or Plasma A.Arcadio Felixmbol Nodavid Work Phone: Start: 06-09-2020 Phosphate [Mass/volu me] in Serum or Plasma A.Arcadio Pinasombol Nolovey Work Phone: Start: 06-09-2020 Complete blood count with white cell differential, automated Favian.Arcadio Pinasombol Nohay Work Phone: Start: 06-09-2020 Complete blood count with white cell differential, manual Binh Pinasombol Nolovey Work Phone: Start: 06-09-2020 Glucose [Mass/volume ] in Blood A.Reignier Magsombol Nohay Work Phone: Start: 06-08-2020 Glucose [Mass/volume ] in Blood A.Arcadio Felixmbol Nohay Work Phone: Start: 06-08-2020 Radiologic exam ches t single view A.Arcadio Pinasombol Nohay Work Phone: Start: 06-08-2020 Glucose [Mass/volume ] in Blood A.Arcadio Pinasombol Nohay Work Phone: Start: 06-08-2020 Basic metabolic 2000 panel - Serum or Plasma A.Arcadio Pinasombol Nohay Work Phone: Start: 06-08-2020 Incentive spirometry A. Arcadio Pinasombol Nohay Work Phone: Start: 06-08-2020 VIBRATORY PEP THERAPY A .Arcadio Pinasombol Nohay Work Phone: Start: 06-08-2020 Glucose [Mass/volume ] in Blood A.Arcadio Pinasombol Nohay Work Phone: Start: 06-08-2020 Basic metabolic 2000 panel - Serum or Plasma A.Arcadio Pinasombol Nohay Work Phone: Start: 06-08-2020 Glucose [Mass/volume ] in Blood A.Arcadio Pinasombol Nohay Work Phone: Start: 06-08-2020 Basic metabolic 2000 panel - Serum or Plasma A.Arcadio Pinasombol Nohay Work Phone: Start: 06-08-2020 Glucose [Mass/volume ] in Blood A.Arcadio Pinasombol Nohay Work Phone: Start: 06-08-2020 End: 06-08-2020 Glucose [Mass/volume] in Blood A.Arcadio Pinasombol Nohay Work Phone: Start: 06-08-2020 Glucose [Mass/volume ] in Blood A.Arcadio Pinasombol Nohay Work Phone: Start: 06-08-2020 Beta hydroxybutyrate [Moles/volume] in Serum or Plasma Binh Pinasombol Nohay Work Phone: Start: 06-08-2020 Comprehensive metabo lic 1999 panel - Serum or Plasma Binh Magsombol Nohay Work Phone: Start: 06-08-2020 Iron measurement AReinaldo Pinasombol Nohay Work Phone: Start: 06-08-2020 Glucose [Mass/volume ] in Blood ACarrillo Pinasombol Nohay Work Phone: Start: 06-08-2020 End: 06-08-2020 Glucose [Mass/volume] in Blood Binh Pinasombol Nohay Work Phone: Start: 06-08-2020 Beta hydroxybutyrate [Moles/volume] in Serum or Plasma Binh Pinasombol Nohay Work Phone: Start: 06-08-2020 Complete blood count with white cell differential, automated Binh Pinasombol Nohay Work Phone: Start: 06-08-2020 Complete blood count with white cell differential, manual Binh Pinasombol Nohay Work Phone: Start: 06-08-2020 Comprehensive metabo lic 1999 panel - Serum or Plasma Binh Pinasombol Nohay Work Phone: Start: 06-08-2020 Magnesium [Mass/volu me] in Serum or Plasma A.Arcadio Magsombol Nohay Work Phone: Start: 06-08-2020 Phosphate [Mass/volu me] in Serum or Plasma Binh Pinasombol Nohay Work Phone: Start: 06-08-2020 Glucose [Mass/volume ] in Blood ACarrillo Pinasombol Nohay Work Phone: Start: 06-08-2020 Glucose [Mass/volume ] in Blood A.Arcadio Chandler Nolovey Work Phone: Start: 06-08-2020 End: 06-08-2020 Glucose [Mass/volume] in Blood A.Arcadio Perkinsol Nolovey Work Phone: Start: 06-07-2020 Comprehensive metabo lic 2000 panel - Serum or Plasma A.Arcadio Chandler Nolovey Work Phone: Start: 06-07-2020 Glucose [Mass/volume ] in Blood A.Arcadio Chandler Nolovey Work Phone: Start: 06-07-2020 End: 06-07-2020 Glucose [Mass/volume] in Blood A.Arcadio Chandler Nolovey Work Phone: Start: 06-07-2020 Glucose [Mass/volume ] in Blood A.Arcadio Chandler Nolovey Work Phone: Start: 06-07-2020 Basic metabolic 2000 panel - Serum or Plasma A.Arcadio Chandler Nolovey Work Phone: Start: 06-07-2020 Beta hydroxybutyrate [Moles/volume] in Serum or Plasma A.Arcadio Chandler Nolovey Work Phone: Start: 06-07-2020 Hemoglobin A1c/Hemoglobin.total in Blood A.Arcadio Chandler Nolovey Work Phone: Start: 06-07-2020 End: 06-07-2020 Glucose [Mass/volume] in Blood A.Arcadio Felixmbol Nolovey Work Phone: Start: 06-07-2020 Glucose [Mass/volume ] in Blood A.Arcadio Felixmbol Nolovey Work Phone: Start: 06-07-2020 Glucose [Mass/volume ] in Blood A.Arcadio Felixmbol Nohay Work Phone: Start: 06-07-2020 End: 06-07-2020 Glucose [Mass/volume] in Blood Binh Virk Work Phone: Start: 06-07-2020 Beta hydroxybutyrate [Moles/volume] in Serum or Plasma Binh Virk Work Phone: Start: 06-07-2020 Comprehensive metabo lic 2000 panel - Serum or Plasma Binh Virk Work Phone: Start: 06-07-2020 Magnesium [Mass/volu me] in Serum or Plasma Binh Virk Work Phone: Start: 06-07-2020 Phosphate [Mass/volu me] in Serum or Plasma Binh Virk Work Phone: Start: 06-07-2020 Thyrotropin [Units/v olume] in Serum or Plasma by Detection limit <= 0.005 mIU/L Binh Virk Work Phone: Start: 06-07-2020 Glucose [Mass/volume ] in Blood Binh Virk Work Phone: Start: 06-07-2020 Complete blood count with white cell differential, automated Binh Virk Work Phone: Start: 06-07-2020 Complete blood count with white cell differential, manual Favian.Arcadio Perkinsol Nodavid Work Phone: Start: 06-07-2020 Glucose [Mass/volume ] in Blood Goitom Andom Asgedom Work Phone: Start: 08-05-2018 Microalbumin [Mass/v olume] in Urine by Test strip Goitom Asgedom Plan of Treatment Date Care Activity Detail Author Start: 12-06-2020 HbA1c (Bld) [Mass fraction] A1C [facility] Start: 10-28-2020 HbA1c (Bld) [Mass fraction] A1C test (Diabetic or Prediabetic) [place] Start: 02-29-2020 Influenza vaccination Flu vaccine (#1) [place] Start: 02-29-2020 Influenza vaccination given Sequential Influenza Vaccine (#1) [facility] Start: 08-05-2019 Albumin DL <= 20 mg/L (U) [Mass/Vol] Urine Microalbumin [facility] Start: 2014 Screening for malignant neoplasm of cervix Cervical cancer screen [place], [place] Start: 2012 DTaP/Tdap/Td vaccine (1 - Tdap) DTaP/Tdap/Td vaccine (1 - Tdap) [place] Start: 2011 Diabetic microalbuminuria test Diabetic microalbuminuria test [place], [place] Start: 2011 Hepatitis C antibody, confirmatory test Hepatitis C Screening [facility] Start: 2008 HIV screening [facility] Start: 2005 Adolescent depression screening assessment Depression Screening (PHQ9) [facility] Start: 2003 [facility] [place] Start: 2003 Diabetic retinal exam Diabetic retinal exam [place], [place] Start: 2003 Lipid panel Lipid screen [place], [place] Start: 2003 Ophthalmic examination and evaluation Ophthalmology Exam [facility] Start: 1996 History and physical examination, annual for health maintenance Wellness Visit [facility] Start: 1994 Varicella vaccine (1 of 2 - 2-dose childhood series) Varicella vaccine (1 of 2 - 2-dose childhood series) [place], [place] Start: 1993 Hepatitis C screening Hepatitis C screen [place], [place] Start: 1993 Screening for malignant neoplasm of cervix Pap Smear [facility] Start: 1993 Tetanus vaccination Tetanus: Every 10yrs [facility] End: 08-05-2020 Basic metabolic 2000 panel Basic Metabolic Panel Lab Timed Every 4 Hours (Lab) for 25 Occurrences starting 08/01/2020 until 08/05/2020, 2 completed [place] Comment on above: Every 4 Hours (Lab) for 25 Occurrences s tarting 08/01/2020 until 08/05/2020, 2 completed CBC WITH AUTO DIFFERENTIAL CBC WITH AUTO DIFFERENTIAL Lab Routine Daily until discontinued starting 08/02/2020 [facility] [place] Comment on above: Daily until discontinued starting 2020 [facility]: 07-[facility]2020 Drugs of abuse 9 serum w/ reflex Drugs of abuse 9 serum w/ reflex Lab Routine Once for 1 Occurrences starting 07/30/2020 until 07/30/2020 [facility] [place] Comment on above: Once for 1 Occurrences starting 07/30/19 21 until 07/30/2020 Drugs of abuse 9 ser um w/ reflex Drugs of abuse 9 serum w/ reflex Lab Routine 07/30/2020 12:02 PM EST [facility] [place] End: 08-05-2020 Magnesium [Mass/Vol] Magnesium Lab Timed Every 4 Hours (Lab) for 25 Occurrences starting 08/01/2020 until 08/05/2020, 2 completed [facility] [place] Comment on above: Every 4 Hours (Lab) for 25 Occurrences s tarting 08/01/2020 until 08/05/2020, 2 completed End: 07-03-2023 Magnesium [Mass/volume] in Serum or Plasma Magnesium Lab Routine Once for 1 Occurrences starting 07/03/2023 until 07/03/2023 [facility] Work Phone: Comment on above: Once for 1 Occurrences starting 07/03/19 24 until 07/03/2023 Oxygen therapy [[facility] Data Set] Initiate Oxygen Therapy Protocol Respiratory Care Routine Daily until discontinued starting 07/29/2020 [facility] [place] Comment on above: Daily until discontinued starting 2020 End: 08-05-2020 Phosphate [Mass/Vol] Phosphorus Lab Timed Every 4 Hours (Lab) for 25 Occurrences starting 08/01/2020 until 08/05/2020, 2 completed [facility] [place] Comment on above: Every 4 Hours (Lab) for 25 Occurrences s tarting 08/01/2020 until 08/05/2020, 2 completed POCT glucose [facility] [place] Comment on above: 4X Daily (AC & HS) until discontinued st arting 07/31/2020 As Needed until disc ontinued starting 07/31/2020 End: 03-12-2021 POCT Glucose - every hour POCT Glucose - every hour Point of Care Testing Timed Every Hour (Lab) for 980 Occurrences starting 07/30/2020 until 09/08/2020 [facility] [place] Comment on above: Every Hour (Lab) for 980 Occurrences sta rting 07/30/2020 until 09/08/2020 End: 07-30-2020 PREVIOUS SPECIMEN PREVIOUS SPECIMEN Lab Routine Once for 1 Occurrences starting 07/30/2020 until 07/30/2020 [facility] [place] Comment on above: Once for 1 Occurrences starting 07/30/19 21 until 07/30/2020 PREVIOUS SPECIMEN PREVIOUS SPECI MEN Lab Routine 07/30/2020 12:02 PM EST [facility] [place] TOX SCR, COMPLETE BL TOX SCR, CO MPLETE BL Lab Add-On 07/30/2020 10:11 AM BARB [facility] [place] Payers Date Payer Category Payer Unknown [id number] 2015 Medicaid [place] [employer] [place] [employer] [id number] 2015-Present [phone] [place] [phone] [id number] 2015 Unknown [employer] [employer] [id number] 2015-Present [id number] 1993 Unknown [id number] 1993 Unknown [id number] 1993 Unknown [id number] 1993 Unknown [id number] 1993 Unknown [id number] 1993 Unknown [id number] [id number] 1993 Unknown [id number] [id number] 1993 Unknown [id number] [id number] 1993 Unknown [id number] [id number] 1993 Unknown [id number] [id number] 1993 Unknown [id number] [id number] 1993 Unknown [id number] [id number] 1993 Unknown [id number] [id number] 1993 Unknown [id number] [id number] 1993 Unknown [id number] 1961 Self-pay 1961 Unknown [id number] Unknown Social History Date Type Detail Facility Tobacco smoking stat [facility] Unknown if ever smoked [facility] Start: 1993 Sex Assigned At Not on file [facility] Exposure to SARS-CoV -2 (event) Not sure [facility] Start: 07-03-2023 Tobacco smoking stat [facility] Smokes tobacco daily [facility] History of tobacco use Cigarette Smoker P [facility] Start: 06-15-2022 End: 07-03-2023 Cigarettes smoked current (pack per day) - Reported 0.5 [facility] Start: 07-03-2023 Tobacco use and exposure Smoke less tobacco non-user [facility] Start: 07-04-2023 Alcohol intake Current non-dr schedule announcer of alcohol (finding) [facility] Start: 06-15-2022 End: 07-04-2023 Social connection and isolation panel [facility] Do you belong to any clubs or organizations such as scientologist groups, unions, fraternal or athletic groups, or school groups? No [facility] Are you now , , , , never or living with a partner? Patient declined [facility] How often to you hav e a drink containing alcohol? Never [facility] Do you feel stress - tense, restless, nervous, or anxious, or unable to sleep at night because your mind is troubled all the time - these days [OSQ] Not at all [facility] Start: 07-03-2023 Tobacco Comment hasn't smoked in 1 week, one cig per day [facility] Goals Date Patient Goal Desired Activity /State Personal health goal Comment on above: Formatting of this n ote might be different from the original. Evaluation of progress towards goal: safe transition from hospital to home with family support. Clinical Notes 05-30-2023 to 07-04-2023 Catrina Longo PA-C - 07/04/2023 3:47 PM Negra Logan MD - 07/04/2023 1:53 PM Negra Logan MD - 07/03/2023 9:58 AM ESTDischarge Instructions Note Date & Type Note Facility 07-04-2023 History of Present illness Narrative Images from the original note were not included. [facility] Endocrin[facility] [place] [facility], [place] [address] [place] [address] Service Pager: Macy Drew MD, Interim Chief MD Catrina Mooney PA-C Alexandrea Vizzaccaro, ALFREDA Gilliam MD, Fellow Stanton Sylvester MD, Fellow NO NEED to PAGE for NEW CONSULTS Page for immediate attention. With this consult we assume full responsibility for diabetes care. Diabetes Management Service Progress Note Patient : Douglas Cordova; 28 y.o. Location: Admit Date: 07/02/2023 Hospital Day: Hospital Day: 3 Reason for Consult: Diabetes management Blood Glucose Monitoring Results, Interpretation: : Results from last 7 days Lab Units 07/04/23 1205 07/04/23 1002 07/04/23 0851 07/04/23 0638 07/04/23 0540 07/04/23 0439 07/04/23 0341 07/04/23 0244 07/04/23 0242 07/04/23 0140 BEDSIDE GLUCOSE mg/dL 173* 140* 156* 139* 134* 147* 86 -- 106* 163* GLUCOSE mg/dL -- -- -- -- -- -- -- 89 -- -- Results/Impression/Conclusion: [] Basal/Bolus insulin imbalance with significant glycemic variability [] Overnight blood glucose reduction [] Fasting hypoglycemia [] Postprandial hypoglyemia: after [] breakfast [] lunch [] evening meal [] nighttime snack [] Hypoglycemia due to over-correction [x] Fasting hyperglycemia [] Postprandial hyperglycemia: after [] breakfast [] lunch [] evening meal [] nighttime snack [x] Hyperglycemia due to missing the scheduled dose of insulin/glucose-lowering medication - evening dose of lantus wasn't given Target glucose level in general care patients is 80 - 130mg/dL before meals, random glucose less than 180mg/dL. In ICU patients, target range is 140-180mg/dL in accordance with recommendations from the [place] [employer]. Blood glucoses above 200 mg/dl are [facility] monitored performance measures. ASSESSMENT and PLAN: Douglas Cordova has diabetes mellitus type 1 complicated by peripheral neuropathy. Admitted with DKA. 1. -DKA (diabetic ketoacidosis): resolved - DISCONTINUE INSULIN INFUSION IF LESS THAN 1 UNIT/HOUR IS REQUIRED TO KEEP BLOOD GLUCOSES ON TARGET (110-150 MG/DL) OR BELOW TARGET (70-109 MG/DL) FOR 2 CONSECUTIVE MEASUREMENTS. 2. DM Type 1 with hyperglycemia Last HbA1c: Lab Results Component Value Date HGBA1C 15.5 (H) 07/02/2023 HGBA1C >16.5 (H) 06/07/2021 Results from last 7 days Lab Units 07/04/23 0244 CREATININE mg/dL 0.36* 3. History of medication non compliance The following changes were made: Basal insulin: Glargine (or Lantus) : _20_units, [] daily AM [] daily at bedtime [x] BID (9 AM, 9 PM) Prandial or meal insulin: Lispro (or Humalog) [x] by insulin to carb ratio = _2_units: 15 grams of carbohydrate in a meal AC Correctional insulin: Lispro (or Humalog): [] 1-5 AC (above 150), 1-4 HS (above 200) [] 2-10 AC (above 150), 2-8 HS (above 200) For while NPO or tube feeding or TPN [] 1-5 q4h (above 150) [] 2-10 q4h (above 150) Discharge recommendations: - Lantus 20 units twice daily - Lispro 2 units per 15 grams of carbs or 5 units for a small meal, 10 units for a large meal - sliding scale For blood glucose 151-200 mg/dL, give 2 units. For blood glucose 201-250 mg/dL, give 4 units. For blood glucose 251-300 mg/dL, give 6 units. For blood glucose 301-350 mg/dL, give 8 units. For blood glucose 351-400 mg/dL, give 10 units. Follow up with us (Diabetes clinic/Endocrinology) within 1-2 weeks of discharge, at [facility], [place], [address], [place] [address]. Need to call to schedule it: . Thank you for consulting our Diabetes Management Team (Endocrinology). We will continue to follow up. No chief complaint on file. History: Douglas Cordova is a 28 y.o. female with diabetes mellitus type 1 who was admitted with DKA. Past medical history of uncontrolled T1DM d/t insulin noncompliance, numerous DKA exacerbations requiring multiple ICU admissions, diabetic neuropathy, psoriasis, adhd, hx of methamphetamine use, recent incarceration. Per chart, patient initially presented to [facility] 07/02 via EMS for altered mental status. Patient had last taken her insulin for T1DM sometime before aspen. Was unable to get filled over the holidays. She was found to be in DKA and iv insulin initiated. Patient remains acutely ill this afternoon and did not want to speak with me. When asked about home insulin she said she's not sure how much she takes and that she hasn't been taking any at all recently. She feels nauseated and vomited this morning. She hasn't eaten anything and endorses poor appetite. Our service was consulted for her in 2020. She was on Lantus 20 units BID, Lispro 3 units per 15 grams of carbs plus medium intensity correction scale. I did not find any documentation from manager copy follow up. ROS/Subjective/Interval history: Pt was sleepy this afternoon and not engaged in conversation. She is doing better and reports better appetite. Food intake: [] Good [x] Decreased [] Poor [] NPO [No] Hypoglycemia; when: [No] Nausea [No] Vomiting [No] Abdominal discomfort/pain Review of Systems Constitutional: Positive for activity change. Gastrointestinal: Negative for nausea and vomiting. Physical Exam: BP 130/78 Pulse 102 Temp 36.7 C (98 F) (Oral) Resp 14 Ht 172.7 cm (5' 8 ) Wt 64.9 kg (143 lb 1.3 oz) LMP 04/01/2023 SpO2 99% BMI 21.76 kg/m Physical Exam Constitutional: General: She is not in acute distress. Comments: sleepy Cardiovascular: Rate and Rhythm: Tachycardia present. Pulmonary: Effort: Pulmonary effort is normal. No respiratory distress. Neurological: Mental Status: She is oriented to person, place, and time. Intake/Output: Intake/Output Summary (Last 24 hours) at 07/04/2023 1547 Last data filed at 07/04/2023 1200 Gross per 24 hour Intake 6351.34 ml Output 6050 ml Net 301.34 ml Steroids / Other Glycemia-Affecting Medications: [No] Diet/Nutrition: Dietary Orders (From admission, onward) Start Ordered 07/03/23 0847 Adult diet Regular Texture; Consistent Carb 195 grams (1500 kcal) Diet effective now Question Answer Comment Diet Type: Regular Texture Carbohydrate Modifiers: Consistent Carb 195 grams (1500 kcal) 07/03/23 0846 Recent Labs: Results from last 7 days Lab Units 07/04/23 0244 07/03/23 0410 07/02/23 1705 WBC X10E9/L 7.6 12.4* 19.2* HEMOGLOBIN g/dL 10.4* 10.8* 11.5* HEMATOCRIT % 30.9* 33.7* 36.5 PLATELETS X10E9/L 221 231 261 Results from last 7 days Lab Units 07/04/23 0900 07/04/23 0244 07/03/23 0842 07/03/23 0410 07/02/23 2110 07/02/23 1705 SODIUM mmol/L 138 141 < > 139 < > 141 POTASSIUM mmol/L 3.9 3.4* < > 3.7 < > 4.6 CHLORIDE mmol/L 108 113* < > 117* < > 116* CO2 mmol/L 26 23 < > 12* < > 5* BUN mg/dL -- 2* -- 8 -- 16 CREATININE mg/dL -- 0.36* -- 0.53 -- 0.71 CALCIUM mg/dL -- 7.4* -- 6.6* -- 7.0* < > = values in this interval not displayed. Results from last 7 days Lab Units 07/04/23 0244 07/03/23 0410 07/02/23 1705 ALBUMIN g/dL 3.0* 3.4 4.0 Last HbA1c: Lab Results Component Value Date HGBA1C 15.5 (H) 07/02/2023 HGBA1C >16.5 (H) 06/07/2021 Catrina Longo PA-C 07/04/23 1553 Images from the original note were not included. Adult ICU Progress Note Patient - Douglas Cordova Age - 28 y.o. - 1995 Date of Admission - 07/02/2023 4:55 PM History of Present Illness Douglas Cordova is a 28 y.o. female with a past medical history of uncontrolled T1DM d/t insulin noncompliance, numerous DKA exacerbations requiring multiple ICU admissions, diabetic neuropathy, psoriasis, adhd, hx of methamphetamine use, recent incarceration. Patient initially presented to [facility] 07/02 via EMS for altered mental status. Patient had last taken her insulin for T1DM sometime before aspen. Was unable to get filled over the holidays. Upon arrival to OSH: WBC 15.7, HB 13.2, vbg ph 6.91, VBG PCO2 17.7, NA 134, K 3.9, CO2 6.2, AG 33.7, Glucose 461, lactate 1.2, High sensitivity trop 3532.8, NT-pro-B natriruretic pep 899. UA large ketonuria, glucosuria. negative for infection. Drug screen positive for methadone. Flu, Covid negative. Patient given 2L bolus NS along with insulin infusion NS KCL 40meq 250cc/hr. Failed to improve requiring transfer to [facility] for higher acuity care in ICU. Upon arrival to [facility] ICU Patient 35.6, HR 101, RR 15 BP 116/83. Blood sugar 231. VBG PH 6.956/ PCO2 20.1/ HCO3 4.5/ O2 Sat 25%. Beta hydroxybutyrate 8.59 Lactate . Patient intermittently drowsy. Responding to commands upon exam. EKG obtained which revealed new 1mm depression V4-V6. Continued on insulin infusion, Started on D5 1/2 NS with 40meq KCL at 250cc/hr. 07/02- Patient bedside bladder scan >1L prompting carballo placement 07/03- Patient gap closed . Insulin requirement with drip remained high around 18-22 requiring continuation of infusion. Insulin infusion intermittently held d/t K<3.3, phos<1. Bedside echo performed 07/03 due to new holosytolic murmur on exam and hx IVDU. Formal TTE ordered. Psychiatry consultation d/t hx suicidal ideation, repeat DKA episodes requiring ICU d/t severe noncompliance. 07/04- Patient transitioned off insulin infusion to long acting basal 20 BID with sliding scale and 2:15 carb covg. Interval History Subjective: Patient seen and examined at bedside. Feels better today. Denies nausea vomiting fever chills chest pain shortness for breath. Willing to speak with psychiatrist at this time. Objective Vitals Temp: [36.5 C (97.7 F)-37.4 C (99.4 F)] 36.7 C (98 F) Pulse: [74-108] 102 Resp: [10-20] 14 BP: (110-170)/(65-117) 130/78 SpO2: [97 %-99 %] 99 % O2 Device: None (Room air) Weight: Admission weight: 61.8 kg (136 lb 3.9 oz) Wt Readings from Last 3 Encounters: 07/04/23 64.9 kg (143 lb 1.3 oz) 06/10/23 59 kg (130 lb) 06/18/22 70 kg (154 lb 4.8 oz) Input/Output: Intake/Output Summary (Last 24 hours) at 07/04/2023 1353 Last data filed at 07/04/2023 1200 Gross per 24 hour Intake 6351.34 ml Output 6050 ml Net 301.34 ml Ventilator: Physical Exam Constitutional: Appearance: She is not toxic-appearing or diaphoretic. HENT: Head: Normocephalic and atraumatic. Cardiovascular: Rate and Rhythm: Tachycardia present. Pulses: Normal pulses. Heart sounds: Murmur heard. Comments: Faint systolic murmur loudest sternal border. Unable to appreciate palpable thrill. Pulmonary: Effort: No respiratory distress. Breath sounds: No wheezing or rales. Abdominal: General: Abdomen is flat. There is no distension. Palpations: Abdomen is soft. Tenderness: There is no abdominal tenderness. There is no guarding. Musculoskeletal: General: No swelling or deformity. Right lower leg: No edema. Left lower leg: No edema. Skin: General: Skin is warm and dry. Capillary Refill: Capillary refill takes less than 2 seconds. Comments: Needle wilburn present RUE. Had IVs at outside hospital. Psoriatic rash present across upper extremity bilaterally along with back Neurological: Mental Status: She is alert and oriented to person, place, and time. Lab Results Results from last 7 days Lab Units 07/04/23 0244 07/03/23 0410 07/02/23 1705 WBC X10E9/L 7.6 12.4* 19.2* HEMOGLOBIN g/dL 10.4* 10.8* 11.5* HEMATOCRIT % 30.9* 33.7* 36.5 PLATELETS X10E9/L 221 231 261 Results from last 7 days Lab Units 07/04/23 0900 07/04/23 0244 07/03/23 2345 07/03/23 0842 07/03/23 0410 07/02/23 2110 07/02/23 1705 SODIUM mmol/L 138 141 137 < > 139 < > 141 POTASSIUM mmol/L 3.9 3.4* 3.3* < > 3.7 < > 4.6 CHLORIDE mmol/L 108 113* 109 < > 117* < > 116* CO2 mmol/L 26 23 21* < > 12* < > 5* BUN mg/dL -- 2* -- -- 8 -- 16 CREATININE mg/dL -- 0.36* -- -- 0.53 -- 0.71 CALCIUM mg/dL -- 7.4* -- -- 6.6* -- 7.0* PHOSPHORUS mg/dL 2.0* <1.0* 1.1* < > 2.2* < > -- MAGNESIUM mg/dL -- 1.5* -- -- 1.8 -- 1.7* < > = values in this interval not displayed. Results from last 7 days Lab Units 07/04/23 0244 07/03/23 0410 07/02/23 1705 ALBUMIN g/dL 3.0* 3.4 4.0 TOTAL PROTEIN g/dL 5.0* 5.7* 6.4 ALT U/L 14 14 17 AST U/L 17 23 25 ALK PHOS U/L 68 80 93 Results from last 7 days Lab Units 07/04/23 1205 07/04/23 1002 07/04/23 0851 BEDSIDE GLUCOSE mg/dL 173* 140* 156* Lab Results Component Value Date HGBA1C 15.5 (H) 07/02/2023 Results from last 7 days Lab Units 07/03/23 2040 07/03/23 1325 07/03/23 0410 TROPONIN I ng/mL 0.69* 0.75* 1.53* Results from last 7 days Lab Units 07/02/23 1705 LACTIC ACID mmol/L 0.8 Lab Results Component Value Date WBCU 0 06/15/2022 SPECIFICGRA <=1.005 06/10/2023 LEUKOCYTE Negative 06/10/2023 NITRITEN Negative 06/10/2023 PHNUR 5.5 06/10/2023 PROTEINNUR Negative 06/10/2023 KETONESNUR >=160 (A) 06/10/2023 UROBILINOGEN 0.2 06/10/2023 BLOODHGBNU Negative 06/10/2023 Radiology Echo complete W/O contrast Result Date: 07/03/2023 Left Ventricle: Left ventricle appears normal in size. There is borderline increased wall thickness/hypertrophy. Apical false tendon noted. Systolic function is normal with an ejection fraction of 60-65%. No segmental wall motion abnormalities. Normal diastolic function is present. Lateral E' is 10.30 cm/s. Medial E' is 7.29 cm/s. Left Atrium: Left atrium is normal in size. Left atrium volume index is normal. The left atrial volume index is 23.4 mL/m2. Right Ventricle: The right ventricular basal diameter is 36.0 mm. Systolic function is normal. Normal tricuspid annular plane systolic excursion. Aortic Valve: The aortic valve is trileaflet. The leaflets are mildly calcified. Tricuspid Valve: There is trace regurgitation. There is no evidence of tricuspid valve stenosis. RVSP calculated at 24 mmHg. Cultures Microbiology Results No results found for the last 168 hours. Medications Scheduled: enoxaparin (LOVENOX) injection, 40 mg, subcutaneous, Daily insulin glargine, 20 Units, subcutaneous, BID insulin lispro, 2-10 Units, subcutaneous, With meals and nightly sod phos di, mono-K phos mono, 1 tablet, oral, BID [CANCELED] Consult PICC nurse - Midline, , , Once AND sodium chloride, 10 mL, intravenous, Q12H AND sodium chloride, 10 mL, intravenous, PRN AND sodium chloride, 20 mL, intravenous, PRN [COMPLETED] Consult PICC nurse - Midline, , , Once AND sodium chloride, 20 mL, intravenous, Q12H AND sodium chloride, 20 mL, intravenous, PRN AND sodium chloride, 40 mL, intravenous, PRN Infusions: dextrose 5 % in water, 100 mL/hr dextrose 5 % and sodium chloride 0.9 % with KCl 40 mEq/L, 250 mL/hr sodium chloride 0.9 %, 10 mL/hr sodium chloride 0.9 %, 10 mL/hr, Last Rate: 10 mL/hr (07/04/23 1117) sodium chloride 0.9 %, 10 mL/hr, Last Rate: 10 mL/hr (07/04/23 1117) As Needed: calcium gluconate OR calcium gluconate OR calcium gluconate dextrose dextrose 5 % in water dextrose 5 % and sodium chloride 0.9 % with KCl 40 mEq/L dextrose 50 % in water (D50W) glucagon (human recombinant) magnesium sulfate OR magnesium sulfate potassium chloride OR potassium chloride potassium chloride in water OR potassium chloride in water prochlorperazine sodium phosphate IV OR sodium phosphate IV - central line OR sod phos di, mono-K phos mono [CANCELED] Consult PICC nurse - Midline AND sodium chloride AND sodium chloride AND sodium chloride [COMPLETED] Consult PICC nurse - Midline AND sodium chloride AND sodium chloride AND sodium chloride sodium chloride 0.9 % sodium chloride 0.9 % sodium chloride 0.9 % Assessment DKA in T1DM secondary to severe insulin noncompliance- resolved High anion gap acidosis -resolved Hypophosphatemia secondary to insulin intracellular shift vs potential refeeding syndrome Hypokalemia secondary to insulin intracellular shiftvs potential repeating some NAGMA- - likely mixed secondary to normal saline infusions (2 L OSH) vs bicarb depletion secondary to cont. Ketonuria loss in urine- resolved Type 2 NSTEMI secondary to demand from DKA Initial EKG New [address] depressions V4, V5, V6. ST depressions improving on repeat EKG. Troponin peak 1.8. Now Downtrending. Reactive leukocytosis secondary to DKA- resolved QTC 520 from 554.- patient positive for methadone on UDS which can cause prolongation. Mg WNL. 1L residual on admission requiring carballo Plan Patient DKA resolved. Now on basal 20 twice daily, sliding scale, carb coverage to 2: 15 tolerating appropriate oral intake Discontinue fluid infusion Electrolyte panel Q 12 hours to monitor for refeeding syndrome Appreciate endocrinology recommendation Psychiatry consultation d/t hx suicidal ideation, repeat DKA episodes requiring ICU d/t severe noncompliance. Aggressive electrolyte repletion given QTC prolongation, risk for refeeding syndrome due to inadequate oral intake with history of very poorly controlled diabetes, frequent DKA Avoid QTC prolonging medications Void trial today Patient is stable for transfer out of ICU Intubated on: Na Reason for intubation: Na Vent Settings: Na Last VB.956/CO2 20.1/ HCO3 4.5/25% sat Fluids: PO Last 24 hr intake/output: Intake: 1800. Out: 900. Net 24hr + 900 Pressor support: n/a Lines (location & placement): R PIV, R picc Carballo/PEG/Drains: na DVT prophylaxis: lovenox- pt currently refusing GI prophylaxis: holding d/t QTC Wounds: na Diet: npo Code Status: full The patient was seen and discussed with attending Dr. Yee . This progress note was completed using a voice transplanter system. Every effort was made to ensure accuracy. However, inadvertent computerized transplanter errors may be present. Ronal Logan MD PGY1 IM Resident [facility] 07/04/23 1:53 PM Associated attestation - Letty Yee MD - 07/04/2023 3:59 PM EST I have seen and examined the patient on rounds with the resident/fellow. I repeated the brown components of the exam. I confirm the note and agree with the assessment and plan except as stated below: Letty Yee MD [facility] Images from the original note were not included. Adult ICU Progress Note Patient - Douglas Cordova Age - 28 y.o. - 1995 Date of Admission - 07/02/2023 4:55 PM History of Present Illness Duoglas Cordova is a 28 y.o. female with a past medical history of uncontrolled T1DM d/t insulin noncompliance, numerous DKA exacerbations requiring multiple ICU admissions, diabetic neuropathy, psoriasis, adhd, hx of methamphetamine use, recent incarceration. Patient initially presented to [facility] 07/02 via EMS for altered mental status. Patient had last taken her insulin for T1DM sometime before aspen. Was unable to get filled over the holidays. Upon arrival to OSH: WBC 15.7, HB 13.2, vbg ph 6.91, VBG PCO2 17.7, NA 134, K 3.9, CO2 6.2, AG 33.7, Glucose 461, lactate 1.2, High sensitivity trop 3532.8, NT-pro-B natriruretic pep 899. UA large ketonuria, glucosuria. negative for infection. Drug screen positive for methadone. Flu, Covid negative. Patient given 2L bolus NS along with insulin infusion NS KCL 40meq 250cc/hr. Failed to improve requiring transfer to [facility] for higher acuity care in ICU. Upon arrival to H ICU Patient 35.6, HR 101, RR 15 BP 116/83. Blood sugar 231. VBG PH 6.956/ PCO2 20.1/ HCO3 4.5/ O2 Sat 25%. Beta hydroxybutyrate 8.59 Lactate . Patient intermittently drowsy. Responding to commands upon exam. EKG obtained which revealed new 1mm depression V4-V6. Continued on insulin infusion, Started on D5 07/01 NS with 40meq KCL at 250cc/hr. 07/02- Patient bedside bladder scan >1L prompting carballo placement 07/03- Patient gap closed . Insulin requirement with drip remained high around 18-22 requiring continuation of infusion. Insulin infusion intermittently held d/t K<3.3, phos<1. Bedside echo performed 07/03 due to new holosytolic murmur on exam and hx IVDU. Formal TTE ordered. Psychiatry consultation d/t hx suicidal ideation, repeat DKA episodes requiring ICU d/t severe noncompliance. Interval History Subjective: Patient seen and examined at bedside. Endorses still feeling ill. Endorses nausea without emesis. Denies fever chills chest pain shortness for breath. Denies abdominal pain discomfort. Denies myalgias. A&O x4. Uncertain when or how received methadone. States it does not usually take. Patient counseled on cessation given prolonged QTC Objective Vitals Temp: [35.6 C (96 F)-37 C (98.6 F)] 36.9 C (98.4 F) Pulse: [97-109] 97 Resp: [9-21] 9 BP: (107-141)/(73-98) 135/86 SpO2: [97 %-100 %] 99 % O2 Device: None (Room air) Weight: Admission weight: 61.8 kg (136 lb 3.9 oz) Wt Readings from Last 3 Encounters: 07/02/23 61.8 kg (136 lb 3.9 oz) 06/10/23 59 kg (130 lb) 06/18/22 70 kg (154 lb 4.8 oz) Input/Output: Intake/Output Summary (Last 24 hours) at 07/03/2023 0958 Last data filed at 07/03/2023 0627 Gross per 24 hour Intake 5922.75 ml Output 2700 ml Net 3222.75 ml Ventilator: Physical Exam Constitutional: Appearance: She is ill-appearing. She is not diaphoretic. HENT: Head: Normocephalic and atraumatic. Cardiovascular: Rate and Rhythm: Tachycardia present. Pulses: Normal pulses. Heart sounds: Murmur heard. Comments: Holosystolic murmur present loudest at left sternal border Pulmonary: Effort: No respiratory distress. Breath sounds: No wheezing or rales. Abdominal: General: Abdomen is flat. There is no distension. Palpations: Abdomen is soft. Tenderness: There is no abdominal tenderness. There is no guarding. Musculoskeletal: General: No swelling or deformity. Right lower leg: No edema. Left lower leg: No edema. Skin: General: Skin is warm and dry. Capillary Refill: Capillary refill takes less than 2 seconds. Comments: Needle wilburn present RUE. Had IVs at outside hospital. Psoriatic rash present across hours bilaterally Neurological: Mental Status: She is alert and oriented to person, place, and time. Lab Results Results from last 7 days Lab Units 07/03/23 0410 07/02/23 1705 WBC X10E9/L 12.4* 19.2* HEMOGLOBIN g/dL 10.8* 11.5* HEMATOCRIT % 33.7* 36.5 PLATELETS X10E9/L 231 261 Results from last 7 days Lab Units 07/03/23 0842 07/03/23 0410 07/03/23 0014 07/02/23 2110 07/02/23 1705 SODIUM mmol/L 139 139 142 < > 141 POTASSIUM mmol/L 3.0* 3.7 3.2* < > 4.6 CHLORIDE mmol/L 116* 117* 121* < > 116* CO2 mmol/L 15* 12* 13* < > 5* BUN mg/dL -- 8 -- -- 16 CREATININE mg/dL -- 0.53 -- -- 0.71 CALCIUM mg/dL -- 6.6* -- -- 7.0* PHOSPHORUS mg/dL <1.0* 2.2* <1.0* < > -- MAGNESIUM mg/dL -- 1.8 -- -- 1.7* < > = values in this interval not displayed. Results from last 7 days Lab Units 07/03/23 0410 07/02/23 1705 ALBUMIN g/dL 3.4 4.0 TOTAL PROTEIN g/dL 5.7* 6.4 ALT U/L 14 17 AST U/L 23 25 ALK PHOS U/L 80 93 Results from last 7 days Lab Units 07/03/23 0944 07/03/23 0820 07/03/23 0712 BEDSIDE GLUCOSE mg/dL 149* 200* 215* Lab Results Component Value Date HGBA1C 15.5 (H) 07/02/2023 Results from last 7 days Lab Units 07/03/23 0410 07/03/23 0014 07/02/23 1705 TROPONIN I ng/mL 1.53* 1.80* 0.93* Results from last 7 days Lab Units 07/02/23 1705 LACTIC ACID mmol/L 0.8 Lab Results Component Value Date WBCU 0 06/15/2022 SPECIFICGRA <=1.005 06/10/2023 LEUKOCYTE Negative 06/10/2023 NITRITEN Negative 06/10/2023 PHNUR 5.5 06/10/2023 PROTEINNUR Negative 06/10/2023 KETONESNUR >=160 (A) 06/10/2023 UROBILINOGEN 0.2 06/10/2023 BLOODHGBNU Negative 06/10/2023 Radiology No results found. Cultures Microbiology Results No results found for the last 168 hours. Medications Scheduled: insulin glargine, 20 Units, subcutaneous, BID insulin lispro, 2-10 Units, subcutaneous, With meals and nightly [CANCELED] Consult PICC nurse - Midline, , , Once AND sodium chloride, 10 mL, intravenous, Q12H AND sodium chloride, 10 mL, intravenous, PRN AND sodium chloride, 20 mL, intravenous, PRN [COMPLETED] Consult PICC nurse - Midline, , , Once AND sodium chloride, 20 mL, intravenous, Q12H AND sodium chloride, 20 mL, intravenous, PRN AND sodium chloride, 40 mL, intravenous, PRN Infusions: dextrose 5 % in water, 100 mL/hr dextrose 5 % and sodium chloride 0.45 % with KCl 40 mEq/L, 250 mL/hr, Last Rate: Stopped (07/03/2346) dextrose 5 % and sodium chloride 0.9 % with KCl 40 mEq/L, 250 mL/hr insulin regular, 0.2-54 Units/hr, Last Rate: Stopped (07/03/23939) sodium chloride 0.9 %, 10 mL/hr sodium chloride 0.9 %, 10 mL/hr, Last Rate: 10 mL/hr (07/03/23409) sodium chloride 0.9 %, 10 mL/hr, Last Rate: 10 mL/hr (07/03/23626) sodium chloride 0.9 % with KCl 40 mEq/L, 250 mL/hr As Needed: calcium gluconate OR calcium gluconate OR calcium gluconate dextrose dextrose 5 % in water dextrose 5 % and sodium chloride 0.9 % with KCl 40 mEq/L dextrose 50 % in water (D50W) glucagon (human recombinant) magnesium sulfate OR magnesium sulfate potassium chloride OR potassium chloride potassium chloride in water OR potassium chloride in water sodium phosphate IV OR sodium phosphate IV - central line OR sod phos di, mono-K phos mono [CANCELED] Consult PICC nurse - Midline AND sodium chloride AND sodium chloride AND sodium chloride [COMPLETED] Consult PICC nurse - Midline AND sodium chloride AND sodium chloride AND sodium chloride sodium chloride 0.9 % sodium chloride 0.9 % sodium chloride 0.9 % Assessment DKA in T1DM secondary to severe insulin noncompliance- Gap closed Currently holding due to hypokalemia, hypophosphatemia will require re-initiation of insulin infusion following appropriate electrolyte repletion due to high insulin infusion requirement 18-22 High anion gap acidosis -resolved Hypophosphatemia secondary to insulin intracellular shift Hypokalemia secondary to insulin intracellular shift NAGMA- - likely mixed secondary to normal saline infusions (2 L OSH) vs bicarb depletion secondary to cont. Ketonuria loss in urine bicarb improving 12 from 5 on admission Denies diarrhea Type 2 NSTEMI secondary to demand from DKA Initial EKG New [address] depressions V4, V5, V6. ST depressions improving on repeat EKG. Troponin peak 1.8. Now Downtrending. Reactive leukocytosis secondary to DKA- downtrending QTC 520 from 554.- patient positive for methadone on UDS which can cause prolongation. Mg WNL. Bladder distention with high residual volume-Carballo in place training appropriately Plan Continue insulin infusion per DKA protocol. Hold drip for K<3.3, phos < 1. will require drip rate less than 1 on 2 subsequent draws before transitioned to basal Transition to D5% LR with Kcl 250cc/hr Maintain D5 while Gluc <250 Electrolyte panel Q4 hr, Phos Q4 hr, Betahydroybutyrate q8 Endocrinology consulted regarding DKA. Appreciate recs Continue to trend tropes TTE to evaluate cardiac function given NSTEMI this admission Psychiatry consultation d/t hx suicidal ideation, repeat DKA episodes requiring ICU d/t severe noncompliance. Compazine for nausea Aggressive electrolyte repletion given QTC prolongation Avoid QTC prolonging medications Continue Carballo given 1L residual volume upon admission Intubated on: Na Reason for intubation: Na Vent Settings: Na Last VB.956/CO2 20.1/ HCO3 4.5/25% sat Fluids: D5% LR with Kcl 250cc/hr Last 24 hr intake/output: Net +3.2L Pressor support: n/a Lines (location & placement): R PIV, R picc Carballo/PEG/Drains: na DVT prophylaxis: lovenox- pt currently refusing GI prophylaxis: holding d/t QTC Wounds: na Diet: npo Code Status: full The patient was seen and discussed with attending Dr. Yee . This progress note was completed using a voice transplanter system. Every effort was made to ensure accuracy. However, inadvertent computerized transplanter errors may be present. Ronal Logan MD PGY1 IM Resident [facility] 07/03/23 9:58 AM Associated attestation - Letty Yee MD - 07/03/2023 9:06 PM EST I have seen and examined the patient on rounds with the resident/fellow. I repeated the brown components of the exam. I confirm the note and agree with the assessment and plan except as stated below: Letty Yee MD [facility] documented in this encounter [facility] 07-04-2023 Progress note Formatting of t his note might be different from the original. Met with patient, introduced self and explained role as clinical psychologist licensed/liaison. Began an interview in order to complete a psychosocial assessment. Patient is a 28 year old female here with DKA. Psych consulted with concerns that patient's non-compliance is related to untreated depression. When asked patient stated she is currently neither suicidal nor homicidal. Patient agreed that she is not as compliant with her self care as she should though adding that she often cannot afford insulin. Patient states that when she is able to obtain a supply of insulin she is good about managing her blood sugars. This has not been the case lately. Patient admits to a history of IV drug use and was using up until this past summer when she was incarcerated. Since her release she has been monitored and thus has remained sober. She attends NA meetings. Patient was born and raised in [place] and is a high school graduate. She is with two children, both of whom live with her parents. 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 She currently lives with friends in [place]. Patient has been linked with [facility] for mental health services in the past. She states she is active with NA meetings. Patient is willing to consider recommendations for additional mental health services. Will monitor, assist in coordinating such services as appropriate. - STEPHANIA Ma 07/04/23 3:53 PM [facility] 07-04-2023 Miscellaneous Notes Met with patient, introduced self and explained role as clinical psychologist licensed/liaison. Began an interview in order to complete a psychosocial assessment. Patient is a 28 year old female here with DKA. Psych consulted with concerns that patient's non-compliance is related to untreated depression. When asked patient stated she is currently neither suicidal nor homicidal. Patient agreed that she is not as compliant with her self care as she should though adding that she often cannot afford insulin. Patient states that when she is able to obtain a supply of insulin she is good about managing her blood sugars. This has not been the case lately. Patient admits to a history of IV drug use and was using up until this past summer when she was incarcerated. Since her release she has been monitored and thus has remained sober. She attends NA meetings. Patient was born and raised in [place] and is a high school graduate. She is with two children, both of whom live with her parents. 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 She currently lives with friends in [place]. Patient has been linked with [facility] for mental health services in the past. She states she is active with NA meetings. Patient is willing to consider recommendations for additional mental health services. Will monitor, assist in coordinating such services as appropriate. - STEPHANIA Ma 07/04/23 3:53 PM Discharge Against Medical Advice The patient has decided to leave against medical advice because she wants to leave the hospital. They have normal mental status and adequate capacity to make medical decisions. The patient refuses hospital admission and wants to be discharged. The risks have been explained to the patient, including returning to DKA, fatal electrolyte abnormalities, worsening illness, chronic pain, permanent disability and . The benefits of admission have also been explained, including the availability and proximity of nurses, physicians, monitoring, diagnostic testing, and treatment . The patient was able to understand and state the risks and benefits of hospital admission. This was witnessed by Dr. Darden and myself, Dr. Logan They had the opportunity to ask questions about their medical condition. The patient was treated to the extent that they would allow and knows that they may return for care at any time. The following therapies were provided at discharge: lantus 20 BID Ronal Logan MD PGY-1 Problem: Pain Goal: Patient goal is pain score less than 4, able to rest, and participant in treatment plan as appropriate Description: INTERVENTIONS: 1. Encourage patient or legal surgical sales representative to report early pain and ask for pain medicine when needed 2. Assess pain using appropriate pain scale and include the scale used when documenting 3. Administer analgesics based on type and severity of pain and evaluate response within appropriate time frame 4. Implement non-pharmacological measures as appropriate and evaluate response 5. Consider cultural and social influences on pain and pain management 6. Notify LIP if interventions ineffective or patient reports new pain 7. Monitor vital signs including pulse ox, end-tidal CO2 based on pain intervention 8. Reassess pain per policy 9. Teach patient or legal surgical sales representative interventions for comforting Outcome: Progressing Note: Evaluation of progress towards goal: Pt pain assessed and reassessed per policy using verbal pain score 0-10. Problem: Safety Goal: Patient will be injury free during hospitalization Description: INTERVENTIONS: 1. Assess patient's risk for falls and implement fall prevention plan of care per policy 2. Provide and maintain a safe environment 3. Proper use of double Identifiers 4. Medication administration using the 5 rights 5. Hand hygiene 6. Specimens are labeled at the bedside 7. Instruct patient/ patient surgical sales representative about use of safety devices 8. Include patient/ patient surgical sales representative in decisions related to safety Outcome: Progressing Note: Evaluation of progress towards goal: SPH needs assessed and reassessed throughout shift. Pt 5 med rights done per policy. Problem: Infection Goal: Absence of infection during hospitalization Description: Interventions: 1. Assess and monitor for signs and symptoms of infection 2. Monitor lab/diagnostic results 3. Monitor all insertion sites i.e., indwelling lines, tubes and drains 4. Monitor endotracheal (as able) and nasal secretions for changes in amount and color 5. Administer medications as ordered 6. Instruct and encourage patient and family to use good hand hygiene technique 7. Identify and instruct patient/patient surgical sales representative in use of appropriate isolation precautions for identified infection/symptoms 8. Provide and discuss with patient/patient surgical sales representative on educational MDRO sheet 9. Encourage and monitor nutritional status daily and consult docent coordinator if indicated 10. Implement neutropenic guidelines as needed 11. Review exposure to history of communicable disease and recent travel history on admission 12. Encourage annual influenza vaccine 13. Encourage pneumonia vaccine Outcome: Progressing Note: Evaluation of progress towards goal: Pt receiving antibiotics. Labs drawn and monitored. Sites assessed and reassessed for s/s of infection. Problem: Knowledge Deficit Goal: Patient/patient surgical sales representative demonstrates understanding of disease process, treatment plan, medications, and discharge instructions Description: INTERVENTIONS 1. Complete learning assessment and assess knowledge base 2. Provide teaching at level of understanding 3. Provide teaching via preferred learning method(s) Outcome: Progressing Note: Evaluation of progress towards goal: Pt does not demonstrate understanding of all information provided, will continue to reassess and reinforce information as needed. Problem: Discharge Planning Goal: Discharge to post-acute care, other facility, or home with appropriate resources Description: Patient's goal is: INTERVENTIONS 1. Conduct assessment to determine patient/family and health care team treatment goals, and need for post-acute services based on payer coverage, community resources, and patient preferences, and barriers to discharge 2. Coordinate with Social work, Care Navigation, and Utilization Review to arrange appropriate level of services according to patient's needs based on patient preference and payer coverage in collaboration with the physician and health care team 3. Address psychosocial, clinical, and financial barriers to discharge as identified in assessment in conjunction with the patient/family and health care team 4. Consult appropriate ancillary services (i.e.. PT/OT/ST, etc) as needed 5. Communicate with and update the patient/family, physician, and health care team regarding progress on the discharge plan 6. Identify discharge learning needs (meds, wound care, etc). 7. Arrange for needed discharge transportation as appropriate Outcome: Progressing Note: Evaluation of progress towards goal: Pt not appropriate for discharge at this time. Problem: Moderate - High Risk Fall Score Description: German Fall Score of =/> 25 or indicated by [facility] Assessment Goal: Patient should be free from fall Description: Interventions: 1. Omega to environment 2. Hourly rounds addressing the 4 P's (Pain, Positioning, Possessions, Potty) 3. Clear area of hazards (spills, clutter, electrical cords, unnecessary equipment) 4. Place equipment (bed & TV controls, call light, phone, urinal) within reach 5. Encourage patient to wear glasses and hearing aides as appropriate 6. Maintain bed in lowest position 7. Lock wheels on bed/wheelchair 8. Provide adequate lighting, including night light 9. Assess need for additional bedding, food/fluids, pain med's prior to sleep/routinely 10. Provide gripper slippers or personal non-skid footwear 11. Teach patient and patient surgical sales representative to maintain environment for safety and engage in all aspects of fall prevention program 12. Remind patient to call for help before getting out of bed 13. Initiate bed/chair/exit alarms supportive devices as appropriate, (chair wedge, no-skid floor mat, raised edge mattress, hip protectors) 14. Locate patient bed assignment for optimal visualization 15. Evaluate and identify Safe Patient Handling Equipment needs 16. Provide supervision when out of bed or chair 17. Utilize gait belt as needed to assist with ambulation 18. Place adaptive equipment (cane, walker) within reach 19. Request patient surgical sales representative bring adaptive equipment/mobility aids from home or obtain and provide as needed 20. Consult pharmacy regarding effects of med's affecting mobility, cognition, and alternatives 21. Obtain physician order for PT if risk factors associated with mobility are present 22. Obtain physician order for OT as appropriate 23. Utilize diversional activities 24. Educate patient and patient surgical sales representative how to maintain a safe environment during visitation times (notify nurse prior to leaving bedside) 25. Consider appropriateness of medical or non-medical director/head team physician 26. Set up voiding schedule as appropriate (every 2 hours) Outcome: Progressing Note: Evaluation of progress towards goal: Pt bed locked and low, hourly rounding performed, safety needs assessed and reassessed throughout shift. Problem: Glucose Imbalance Goal: Clinical indication of glucose balance is achieved Description: Patient's goal is: INTERVENTIONS 1. Monitor blood glucose levels as ordered 2. Administer medications as ordered 3. Notify physician of ineffective treatment plan Outcome: Progressing Note: Evaluation of progress towards goal: BS drawn and managed per order set. Goal: Patient's discharge needs are met Description: Patient's goal is: INTERVENTIONS 1. Assess patient for self-management skills 2. Encourage participation in diabetes management 3. Identify potential discharge barriers on admission and throughout hospital stay 4. Involve patient/S.O. in discharge planning process 5. Communicate referral to extension service advisor as appropriate 6. Communicate referral to docent coordinator as appropriate 7. Collaborate with case management/licensed social worker for discharge needs Outcome: Progressing Note: Evaluation of progress towards goal: Pt not appropriate for discharge at this time. Problem: Potential for Compromised Skin Integrity Goal: Skin integrity is maintained or improved Description: Patient's goal is: INTERVENTIONS 1. Perform initial skin assessment on admission and as needed 2. Turn patient every 2 hours and PRN 3. Relieve pressure to bony prominences 4. Avoid shearing 5. Keep skin clean and dry 6. Alternate a full bath with partial baths for elderly 7. Encourage use of lotion/moisturizer on skin 8. Monitor patient's hygiene practices 9. Float heels 10. Collaborate with interdisciplinary team and initiate plans and interventions as needed Outcome: Progressing Note: Evaluation of progress towards goal: Pt encouraged frequent position changes. Heels floated. Skin care provided. Goal: Patient's nutritional intake is adequate Description: Patient's goal is: INTERVENTIONS 1. Assess and monitor food intake and supplements, patient food preferences, nausea, vomiting, labs, oral cavity (gums, teeth, tongue, mucosa), proper denture fit, and cultural beliefs 2. Monitor for signs of hypoglycemia and hyperglycemia 3. Collaborate with interdisciplinary team and initiate plan and interventions as ordered 4. Monitor patient's weight 5. Assist patient with meals/food selection 6. Assist patient with eating 7. Allow adequate time for meals 8. Provide pleasant environment during mealtime 9. Increase social contact during mealtimes 10. Plan activities to conserve energy 11. Encourage/perform oral hygiene as appropriate 12. Encourage patient to take dietary supplement as ordered 13. Collaborate with clinical docent coordinator 14. Include patient/ patient's surgical sales representative in decisions related to nutrition Outcome: Progressing Note: Evaluation of progress towards goal: PT encouraged PO intake. Problem: Urinary Incontinence Goal: Perineal skin integrity is maintained or improved Description: INTERVENTIONS 1. Assess genitourinary system, perineal skin, labs (urinalysis), and history of incontinence to include past management, aggravating, and alleviating factors 2. Keep skin clean and dry 3. Apply skin protectant 4. Develop skin care regimen 5. Provide privacy when changing patients incontinence device to maintain their dignity 6. Consider placing an indwelling catheter 7. Collaborate with interdisciplinary team and initiate plans and interventions as needed Outcome: Progressing Note: Evaluation of progress towards goal: Jeanette and carballo care done prn and per policy. Problem: Pain Goal: Patient goal is pain score less than 4, able to rest, and participant in treatment plan as appropriate Description: INTERVENTIONS: 1. Encourage patient or legal surgical sales representative to report early pain and ask for pain medicine when needed 2. Assess pain using appropriate pain scale and include the scale used when documenting 3. Administer analgesics based on type and severity of pain and evaluate response within appropriate time frame 4. Implement non-pharmacological measures as appropriate and evaluate response 5. Consider cultural and social influences on pain and pain management 6. Notify LIP if interventions ineffective or patient reports new pain 7. Monitor vital signs including pulse ox, end-tidal CO2 based on pain intervention 8. Reassess pain per policy 9. Teach patient or legal surgical sales representative interventions for comforting Outcome: Progressing Note: Evaluation of progress towards goal: Patient is assessed every 4 hours for pain. Patients vitals are monitored and verbals are assessed. Problem: Safety Goal: Patient will be injury free during hospitalization Description: INTERVENTIONS: 1. Assess patient's risk for falls and implement fall prevention plan of care per policy 2. Provide and maintain a safe environment 3. Proper use of double Identifiers 4. Medication administration using the 5 rights 5. Hand hygiene 6. Specimens are labeled at the bedside 7. Instruct patient/ patient surgical sales representative about use of safety devices 8. Include patient/ patient surgical sales representative in decisions related to safety Outcome: Progressing Note: Evaluation of progress towards goal: Patient is free of injury at present time. Bed brakes locked and lowered. Call light in reach and frequent rounding to ensure safety. Problem: Infection Goal: Absence of infection during hospitalization Description: Interventions: 1. Assess and monitor for signs and symptoms of infection 2. Monitor lab/diagnostic results 3. Monitor all insertion sites i.e., indwelling lines, tubes and drains 4. Monitor endotracheal (as able) and nasal secretions for changes in amount and color 5. Administer medications as ordered 6. Instruct and encourage patient and family to use good hand hygiene technique 7. Identify and instruct patient/patient surgical sales representative in use of appropriate isolation precautions for identified infection/symptoms 8. Provide and discuss with patient/patient surgical sales representative on educational MDRO sheet 9. Encourage and monitor nutritional status daily and consult docent coordinator if indicated 10. Implement neutropenic guidelines as needed 11. Review exposure to history of communicable disease and recent travel history on admission 12. Encourage annual influenza vaccine 13. Encourage pneumonia vaccine Outcome: Progressing Note: Evaluation of progress towards goal: Patient is afebrile at present time. Will monitor labs and vital signs. Problem: Knowledge Deficit Goal: Patient/patient surgical sales representative demonstrates understanding of disease process, treatment plan, medications, and discharge instructions Description: INTERVENTIONS 1. Complete learning assessment and assess knowledge base 2. Provide teaching at level of understanding 3. Provide teaching via preferred learning method(s) Outcome: Progressing Note: Evaluation of progress towards goal: Patient is updated on treatments and medications. Will continue to educate. Problem: Moderate - High Risk Fall Score Description: German Fall Score of =/> 25 or indicated by [facility] Assessment Goal: Patient should be free from fall Description: Interventions: 1. Omega to environment 2. Hourly rounds addressing the 4 P's (Pain, Positioning, Possessions, Potty) 3. Clear area of hazards (spills, clutter, electrical cords, unnecessary equipment) 4. Place equipment (bed & TV controls, call light, phone, urinal) within reach 5. Encourage patient to wear glasses and hearing aides as appropriate 6. Maintain bed in lowest position 7. Lock wheels on bed/wheelchair 8. Provide adequate lighting, including night light 9. Assess need for additional bedding, food/fluids, pain med's prior to sleep/routinely 10. Provide gripper slippers or personal non-skid footwear 11. Teach patient and patient surgical sales representative to maintain environment for safety and engage in all aspects of fall prevention program 12. Remind patient to call for help before getting out of bed 13. Initiate bed/chair/exit alarms supportive devices as appropriate, (chair wedge, no-skid floor mat, raised edge mattress, hip protectors) 14. Locate patient bed assignment for optimal visualization 15. Evaluate and identify Safe Patient Handling Equipment needs 16. Provide supervision when out of bed or chair 17. Utilize gait belt as needed to assist with ambulation 18. Place adaptive equipment (cane, walker) within reach 19. Request patient surgical sales representative bring adaptive equipment/mobility aids from home or obtain and provide as needed 20. Consult pharmacy regarding effects of med's affecting mobility, cognition, and alternatives 21. Obtain physician order for PT if risk factors associated with mobility are present 22. Obtain physician order for OT as appropriate 23. Utilize diversional activities 24. Educate patient and patient surgical sales representative how to maintain a safe environment during visitation times (notify nurse prior to leaving bedside) 25. Consider appropriateness of medical or non-medical director/head team physician 26. Set up voiding schedule as appropriate (every 2 hours) Outcome: Progressing Note: Evaluation of progress towards goal: Pt is free from falls at present time. Bed locked and lowered at current time. Call light in reach. Problem: Potential for Compromised Skin Integrity Goal: Skin integrity is maintained or improved Description: Patient's goal is: INTERVENTIONS 1. Perform initial skin assessment on admission and as needed 2. Turn patient every 2 hours and PRN 3. Relieve pressure to bony prominences 4. Avoid shearing 5. Keep skin clean and dry 6. Alternate a full bath with partial baths for elderly 7. Encourage use of lotion/moisturizer on skin 8. Monitor patient's hygiene practices 9. Float heels 10. Collaborate with interdisciplinary team and initiate plans and interventions as needed Outcome: Progressing Note: Evaluation of progress towards goal: Patient has indwelling catheter to help with skin integrity. Will continue to monitor. Patient turned every 2 hours with pillow support. Problem: Pain Goal: Patient goal is pain score less than 4, able to rest, and participant in treatment plan as appropriate Description: INTERVENTIONS: 1. Encourage patient or legal surgical sales representative to report early pain and ask for pain medicine when needed 2. Assess pain using appropriate pain scale and include the scale used when documenting 3. Administer analgesics based on type and severity of pain and evaluate response within appropriate time frame 4. Implement non-pharmacological measures as appropriate and evaluate response 5. Consider cultural and social influences on pain and pain management 6. Notify LIP if interventions ineffective or patient reports new pain 7. Monitor vital signs including pulse ox, end-tidal CO2 based on pain intervention 8. Reassess pain per policy 9. Teach patient or legal surgical sales representative interventions for comforting Outcome: Progressing Note: Evaluation of progress towards goal: Vital signs stable. Adult verbal pain score of 0. Will continue to monitor and assess. Problem: Safety Goal: Patient will be injury free during hospitalization Description: INTERVENTIONS: 1. Assess patient's risk for falls and implement fall prevention plan of care per policy 2. Provide and maintain a safe environment 3. Proper use of double Identifiers 4. Medication administration using the 5 rights 5. Hand hygiene 6. Specimens are labeled at the bedside 7. Instruct patient/ patient surgical sales representative about use of safety devices 8. Include patient/ patient surgical sales representative in decisions related to safety Outcome: Progressing Note: Evaluation of progress towards goal: Pt shows no signs of injury at this time. Will continue to monitor. Problem: Infection Goal: Absence of infection during hospitalization Description: Interventions: 1. Assess and monitor for signs and symptoms of infection 2. Monitor lab/diagnostic results 3. Monitor all insertion sites i.e., indwelling lines, tubes and drains 4. Monitor endotracheal (as able) and nasal secretions for changes in amount and color 5. Administer medications as ordered 6. Instruct and encourage patient and family to use good hand hygiene technique 7. Identify and instruct patient/patient surgical sales representative in use of appropriate isolation precautions for identified infection/symptoms 8. Provide and discuss with patient/patient surgical sales representative on educational MDRO sheet 9. Encourage and monitor nutritional status daily and consult docent coordinator if indicated 10. Implement neutropenic guidelines as needed 11. Review exposure to history of communicable disease and recent travel history on admission 12. Encourage annual influenza vaccine 13. Encourage pneumonia vaccine Outcome: Progressing Note: Evaluation of progress towards goal: Pt is afebrile at this time. CBC being monitored Problem: Knowledge Deficit Goal: Patient/patient surgical sales representative demonstrates understanding of disease process, treatment plan, medications, and discharge instructions Description: INTERVENTIONS 1. Complete learning assessment and assess knowledge base 2. Provide teaching at level of understanding 3. Provide teaching via preferred learning method(s) Outcome: Progressing Note: Evaluation of progress towards goal: Pt. verbalizes understanding of treatment and current medications. Will continue to reinforce in preparation for discharge. Problem: Discharge Planning Goal: Discharge to post-acute care, other facility, or home with appropriate resources Description: Patient's goal is: INTERVENTIONS 1. Conduct assessment to determine patient/family and health care team treatment goals, and need for post-acute services based on payer coverage, community resources, and patient preferences, and barriers to discharge 2. Coordinate with Social work, Care Navigation, and Utilization Review to arrange appropriate level of services according to patient's needs based on patient preference and payer coverage in collaboration with the physician and health care team 3. Address psychosocial, clinical, and financial barriers to discharge as identified in assessment in conjunction with the patient/family and health care team 4. Consult appropriate ancillary services (i.e.. PT/OT/ST, etc) as needed 5. Communicate with and update the patient/family, physician, and health care team regarding progress on the discharge plan 6. Identify discharge learning needs (meds, wound care, etc). 7. Arrange for needed discharge transportation as appropriate Outcome: Progressing Note: Evaluation of progress towards goal: Discharge plan is continuing to be discussed. Problem: Moderate - High Risk Fall Score Description: German Fall Score of =/> 25 or indicated by [facility] Assessment Goal: Patient should be free from fall Description: Interventions: 1. Omega to environment 2. Hourly rounds addressing the 4 P's (Pain, Positioning, Possessions, Potty) 3. Clear area of hazards (spills, clutter, electrical cords, unnecessary equipment) 4. Place equipment (bed & TV controls, call light, phone, urinal) within reach 5. Encourage patient to wear glasses and hearing aides as appropriate 6. Maintain bed in lowest position 7. Lock wheels on bed/wheelchair 8. Provide adequate lighting, including night light 9. Assess need for additional bedding, food/fluids, pain med's prior to sleep/routinely 10. Provide gripper slippers or personal non-skid footwear 11. Teach patient and patient surgical sales representative to maintain environment for safety and engage in all aspects of fall prevention program 12. Remind patient to call for help before getting out of bed 13. Initiate bed/chair/exit alarms supportive devices as appropriate, (chair wedge, no-skid floor mat, raised edge mattress, hip protectors) 14. Locate patient bed assignment for optimal visualization 15. Evaluate and identify Safe Patient Handling Equipment needs 16. Provide supervision when out of bed or chair 17. Utilize gait belt as needed to assist with ambulation 18. Place adaptive equipment (cane, walker) within reach 19. Request patient surgical sales representative bring adaptive equipment/mobility aids from home or obtain and provide as needed 20. Consult pharmacy regarding effects of med's affecting mobility, cognition, and alternatives 21. Obtain physician order for PT if risk factors associated with mobility are present 22. Obtain physician order for OT as appropriate 23. Utilize diversional activities 24. Educate patient and patient surgical sales representative how to maintain a safe environment during visitation times (notify nurse prior to leaving bedside) 25. Consider appropriateness of medical or non-medical director/head team physician 26. Set up voiding schedule as appropriate (every 2 hours) Outcome: Progressing Note: Evaluation of progress towards goal: Will continue to educated pt of process, plan, and medications. Bed is in the lowest position, wheels are locked, 3/4 side rails are up. Hourly rounding performed. Problem: Glucose Imbalance Goal: Clinical indication of glucose balance is achieved Description: Patient's goal is: INTERVENTIONS 1. Monitor blood glucose levels as ordered 2. Administer medications as ordered 3. Notify physician of ineffective treatment plan Outcome: Progressing Note: Evaluation of progress towards goal: Blood glucose levels are being monitored and insulin administered. Goal: Patient's discharge needs are met Description: Patient's goal is: INTERVENTIONS 1. Assess patient for self-management skills 2. Encourage participation in diabetes management 3. Identify potential discharge barriers on admission and throughout hospital stay 4. Involve patient/S.O. in discharge planning process 5. Communicate referral to extension service advisor as appropriate 6. Communicate referral to docent coordinator as appropriate 7. Collaborate with case management/licensed social worker for discharge needs Outcome: Progressing Note: Evaluation of progress towards goal: Pt. maintaining blood glucose within parameters and receiving insulin PRN for elevations. Endocrine following. Problem: Potential for Compromised Skin Integrity Goal: Skin integrity is maintained or improved Description: Patient's goal is: INTERVENTIONS 1. Perform initial skin assessment on admission and as needed 2. Turn patient every 2 hours and PRN 3. Relieve pressure to bony prominences 4. Avoid shearing 5. Keep skin clean and dry 6. Alternate a full bath with partial baths for elderly 7. Encourage use of lotion/moisturizer on skin 8. Monitor patient's hygiene practices 9. Float heels 10. Collaborate with interdisciplinary team and initiate plans and interventions as needed Outcome: Progressing Note: Evaluation of progress towards goal: Skin integrity is being maintained. Pt is being turned every two hours. Skin is clean and dry. Problem: Urinary Incontinence Goal: Perineal skin integrity is maintained or improved Description: INTERVENTIONS 1. Assess genitourinary system, perineal skin, labs (urinalysis), and history of incontinence to include past management, aggravating, and alleviating factors 2. Keep skin clean and dry 3. Apply skin protectant 4. Develop skin care regimen 5. Provide privacy when changing patients incontinence device to maintain their dignity 6. Consider placing an indwelling catheter 7. Collaborate with interdisciplinary team and initiate plans and interventions as needed Outcome: Progressing Note: Evaluation of progress towards goal: Carballo is in place. Skin is kept clean and dry. Problem: Pain Goal: Patient goal is pain score less than 4, able to rest, and participant in treatment plan as appropriate Description: INTERVENTIONS: 1. Encourage patient or legal surgical sales representative to report early pain and ask for pain medicine when needed 2. Assess pain using appropriate pain scale and include the scale used when documenting 3. Administer analgesics based on type and severity of pain and evaluate response within appropriate time frame 4. Implement non-pharmacological measures as appropriate and evaluate response 5. Consider cultural and social influences on pain and pain management 6. Notify LIP if interventions ineffective or patient reports new pain 7. Monitor vital signs including pulse ox, end-tidal CO2 based on pain intervention 8. Reassess pain per policy 9. Teach patient or legal surgical sales representative interventions for comforting Outcome: Progressing Note: Evaluation of progress towards goal: Patient is assessed every 4 hours for pain. Patients vitals are monitored and verbal needs are assessed. Problem: Safety Goal: Patient will be injury free during hospitalization Description: INTERVENTIONS: 1. Assess patient's risk for falls and implement fall prevention plan of care per policy 2. Provide and maintain a safe environment 3. Proper use of double Identifiers 4. Medication administration using the 5 rights 5. Hand hygiene 6. Specimens are labeled at the bedside 7. Instruct patient/ patient surgical sales representative about use of safety devices 8. Include patient/ patient surgical sales representative in decisions related to safety Outcome: Progressing Note: Evaluation of progress towards goal: Patient is free of injury at present time. Bed brakes locked and lowered. Call light in reach and frequent rounding to ensure safety. Problem: Infection Goal: Absence of infection during hospitalization Description: Interventions: 1. Assess and monitor for signs and symptoms of infection 2. Monitor lab/diagnostic results 3. Monitor all insertion sites i.e., indwelling lines, tubes and drains 4. Monitor endotracheal (as able) and nasal secretions for changes in amount and color 5. Administer medications as ordered 6. Instruct and encourage patient and family to use good hand hygiene technique 7. Identify and instruct patient/patient surgical sales representative in use of appropriate isolation precautions for identified infection/symptoms 8. Provide and discuss with patient/patient surgical sales representative on educational MDRO sheet 9. Encourage and monitor nutritional status daily and consult docent coordinator if indicated 10. Implement neutropenic guidelines as needed 11. Review exposure to history of communicable disease and recent travel history on admission 12. Encourage annual influenza vaccine 13. Encourage pneumonia vaccine Outcome: Progressing Note: Evaluation of progress towards goal: Patient is afebrile at present time. Will monitor labs and vital signs. Problem: Knowledge Deficit Goal: Patient/patient surgical sales representative demonstrates understanding of disease process, treatment plan, medications, and discharge instructions Description: INTERVENTIONS 1. Complete learning assessment and assess knowledge base 2. Provide teaching at level of understanding 3. Provide teaching via preferred learning method(s) Outcome: Progressing Note: Evaluation of progress towards goal: Patient is updated on treatments and medications. Will continue to educate. Problem: Moderate - High Risk Fall Score Description: German Fall Score of =/> 25 or indicated by [facility] Assessment Goal: Patient should be free from fall Description: Interventions: 1. Omega to environment 2. Hourly rounds addressing the 4 P's (Pain, Positioning, Possessions, Potty) 3. Clear area of hazards (spills, clutter, electrical cords, unnecessary equipment) 4. Place equipment (bed & TV controls, call light, phone, urinal) within reach 5. Encourage patient to wear glasses and hearing aides as appropriate 6. Maintain bed in lowest position 7. Lock wheels on bed/wheelchair 8. Provide adequate lighting, including night light 9. Assess need for additional bedding, food/fluids, pain med's prior to sleep/routinely 10. Provide gripper slippers or personal non-skid footwear 11. Teach patient and patient surgical sales representative to maintain environment for safety and engage in all aspects of fall prevention program 12. Remind patient to call for help before getting out of bed 13. Initiate bed/chair/exit alarms supportive devices as appropriate, (chair wedge, no-skid floor mat, raised edge mattress, hip protectors) 14. Locate patient bed assignment for optimal visualization 15. Evaluate and identify Safe Patient Handling Equipment needs 16. Provide supervision when out of bed or chair 17. Utilize gait belt as needed to assist with ambulation 18. Place adaptive equipment (cane, walker) within reach 19. Request patient surgical sales representative bring adaptive equipment/mobility aids from home or obtain and provide as needed 20. Consult pharmacy regarding effects of med's affecting mobility, cognition, and alternatives 21. Obtain physician order for PT if risk factors associated with mobility are present 22. Obtain physician order for OT as appropriate 23. Utilize diversional activities 24. Educate patient and patient surgical sales representative how to maintain a safe environment during visitation times (notify nurse prior to leaving bedside) 25. Consider appropriateness of medical or non-medical director/head team physician 26. Set up voiding schedule as appropriate (every 2 hours) Outcome: Progressing Note: Evaluation of progress towards goal: Pt is free from falls at present time. Bed locked and lowered at current time. Call light in reach. ;; Problem: Potential for Compromised Skin Integrity Goal: Skin integrity is maintained or improved Description: Patient's goal is: INTERVENTIONS 1. Perform initial skin assessment on admission and as needed 2. Turn patient every 2 hours and PRN 3. Relieve pressure to bony prominences 4. Avoid shearing 5. Keep skin clean and dry 6. Alternate a full bath with partial baths for elderly 7. Encourage use of lotion/moisturizer on skin 8. Monitor patient's hygiene practices 9. Float heels 10. Collaborate with interdisciplinary team and initiate plans and interventions as needed Outcome: Progressing Note: Evaluation of progress towards goal: Patient has indwelling catheter to help with skin integrity. Will continue to monitor. Patient turned every 2 hours with pillow support. documented in this encounter [facility] 07-04-2023 Hospital course Narrative Images from the original note were not included. ICU DISCHARGE SUMMARY Patient Name: Douglas Cordova : 1995 PCP: ARCADIO IGLESIAS MD DATE OF ADMISSION: 07/02/2023 DATE OF DISCHARGE: 07/04/2023 PRIMARY DISCHARGE DIAGNOSIS: DKA secondary to insulin noncompliance Type 2 NSTEMI QTC prolongation High anion gap acidosis secondary to above- resolved NAGMA secondary to NS infusion OSH, bicarb depletion secondary to cont. Ketone loss in urine- resolved Electrolyte abnormalities secondary to insulin vs possible refeeding syndrome Methadone use SECONDARY DISCHARGE DIAGNOSIS: T1DM - A1C 15 diabetic neuropathy psoriasis Adhd hx of remote methamphetamine use recent incarceration. Hx suicidal ideation Hx remote IVDU CONSULTANTS: Consulting Providers Provider Service Specialty Bryce Gaines MD -- Psychiatry Macy Drew -- Endocrinology, Diabetes & Metabolism Endocrinology Psychiatry PROCEDURES: PICC line placement HPI/HOSPITAL COURSE SUMMARY: Douglas Cordova is a 28 y.o. female with a past medical history of uncontrolled T1DM d/t insulin noncompliance, numerous DKA exacerbations requiring multiple ICU admissions, diabetic neuropathy, psoriasis, adhd, hx of methamphetamine use, recent incarceration. Patient initially presented to [facility] 07/02 via EMS for altered mental status. Patient had last taken her insulin for T1DM sometime before . Was unable to get filled over the holidays. Upon arrival to OSH: WBC 15.7, HB 13.2, vbg ph 6.91, VBG PCO2 17.7, NA 134, K 3.9, CO2 6.2, AG 33.7, Glucose 461, lactate 1.2, High sensitivity trop 3532.8, NT-pro-B natriruretic pep 899. UA large ketonuria, glucosuria. negative for infection. Drug screen positive for methadone. Flu, Covid negative. Patient given 2L bolus NS along with insulin infusion NS KCL 40meq 250cc/hr. Failed to improve requiring transfer to [facility] for higher acuity care in ICU. Upon arrival to [facility] ICU Patient 35.6, HR 101, RR 15 BP 116/83. Blood sugar 231. VBG PH 6.956/ PCO2 20.1/ HCO3 4.5/ O2 Sat 25%. Beta hydroxybutyrate 8.59 Lactate . Patient intermittently drowsy. Responding to commands upon exam. EKG obtained which revealed new 1mm depression V4-V6. Continued on insulin infusion, Started on D5 1/2 NS with 40meq KCL at 250cc/hr. Brief ICU Course Patient treated for DKA exacerbation with appropriate protocol. Drip weaned 07/04 and to long acting basal 20 BID with sliding scale and 2:15 carb covg. During admission, patient found to have Type 2 NSTEMI with new depressions V4-V6. Trop peaked 1.8 before downtrending. Depressions resolved on subsequent EKGs. TTE performed d/t NSTEMI revealed borderline wall thickness, apical false tendon, EF 60-65%, and trace regurg across mitral, tricuspid, and pulmonic valves. PICC line placed in RUE due to difficult US guided IV access. Removed prior to DC Carballo placed on admission due to 1L urinary retention. Removed prior to DC Patient left AMA 07/04/23. Patient states she now has insulin at home and prescription is ready. They have normal mental status and adequate capacity to make medical decisions. The patient refuses hospital admission and wants to be discharged.The risks have been explained to the patient, including returning to DKA, fatal electrolyte abnormalities, worsening illness, chronic pain, permanent disability and .The benefits of admission have also been explained, including the availability and proximity of nurses, physicians, monitoring, diagnostic testing, and treatment .The patient was able to understand and state the risks and benefits of hospital admission. This was witnessed by Dr. Darden and myself, Dr. Logan They had the opportunity to ask questions about their medical condition. The patient was treated to the extent that they would allow and knows that they may return for care at any time. The following therapies were provided at discharge: lantus 20 BID DISCHARGE INSTRUCTIONS: Disposition: discharge to Home Condition: good Activity: as tolerated Diet: Adult diet Regular Texture; Consistent Carb 195 grams (1500 kcal) Code Status: full FOLLOW-UP: Follow up with primary care provider within 1-2 weeks of discharge Follow up with manager copy within 3 days of discharge No future appointments. Physical Exam: BP 130/78 Pulse 102 Temp 36.7 C (98 F) (Oral) Resp 14 Ht 172.7 cm (5' 8 ) Wt 64.9 kg (143 lb 1.3 oz) LMP 04/01/2023 SpO2 99% BMI 21.76 kg/m Constitutional: Appearance: She is not toxic-appearing or diaphoretic. HENT: Head: Normocephalic and atraumatic. Cardiovascular: Rate and Rhythm: Tachycardia present. Pulses: Normal pulses. Heart sounds: Murmur heard. Comments: Faint systolic murmur loudest sternal border. Unable to appreciate palpable thrill. Pulmonary: Effort: No respiratory distress. Breath sounds: No wheezing or rales. Abdominal: General: Abdomen is flat. There is no distension. Palpations: Abdomen is soft. Tenderness: There is no abdominal tenderness. There is no guarding. Musculoskeletal: General: No swelling or deformity. Right lower leg: No edema. Left lower leg: No edema. Skin: General: Skin is warm and dry. Capillary Refill: Capillary refill takes less than 2 seconds. Comments: Needle wilburn present RUE. Had IVs at outside hospital. Psoriatic rash present across upper extremity bilaterally along with back Neurological: Mental Status: She is alert and oriented to person, place, and time. Intake/output: Net IO Since Admission: 2,144.09 mL [07/04/23 1517] Labs: Results from last 7 days Lab Units 07/04/23 02407/03/23 04107/02/23 1705 WBC X10E9/L 7.6 12.4* 19.2* HEMOGLOBIN g/dL 10.4* 10.8* 11.5* HEMATOCRIT % 30.9* 33.7* 36.5 PLATELETS X10E9/L 221 231 261 Results from last 7 days Lab Units 07/04/23 0900 07/04/23 0244 07/03/23 2345 07/03/23 0842 07/03/23 0410 07/02/23 2110 07/02/23 1705 SODIUM mmol/L 138 141 137 < > 139 < > 141 POTASSIUM mmol/L 3.9 3.4* 3.3* < > 3.7 < > 4.6 CHLORIDE mmol/L 108 113* 109 < > 117* < > 116* CO2 mmol/L 26 23 21* < > 12* < > 5* BUN mg/dL -- 2* -- -- 8 -- 16 CREATININE mg/dL -- 0.36* -- -- 0.53 -- 0.71 CALCIUM mg/dL -- 7.4* -- -- 6.6* -- 7.0* PHOSPHORUS mg/dL 2.0* <1.0* 1.1* < > 2.2* < > -- MAGNESIUM mg/dL -- 1.5* -- -- 1.8 -- 1.7* < > = values in this interval not displayed. Results from last 7 days Lab Units 07/04/23 02407/03/2340907/02/23 1705 ALBUMIN g/dL 3.0* 3.4 4.0 TOTAL PROTEIN g/dL 5.0* 5.7* 6.4 ALT U/L 14 14 17 AST U/L 17 23 25 ALK PHOS U/L 68 80 93 Results from last 7 days Lab Units 07/04/23 1205 07/04/23 1002 07/04/23 0851 BEDSIDE GLUCOSE mg/dL 173* 140* 156* Lab Results Component Value Date HGBA1C 15.5 (H) 07/02/2023 Results from last 7 days Lab Units 07/03/23 2040 07/03/23 1325 07/03/23 0410 TROPONIN I ng/mL 0.69* 0.75* 1.53* Results from last 7 days Lab Units 07/02/23 1705 LACTIC ACID mmol/L 0.8 Lab Results Component Value Date WBCU 0 06/15/2022 SPECIFICGRA <=1.005 06/10/2023 LEUKOCYTE Negative 06/10/2023 NITRITEN Negative 06/10/2023 PHNUR 5.5 06/10/2023 PROTEINNUR Negative 06/10/2023 KETONESNUR >=160 (A) 06/10/2023 UROBILINOGEN 0.2 06/10/2023 BLOODHGBNU Negative 06/10/2023 Imaging Echo complete W/O contrast Result Date: 07/03/2023 Left Ventricle: Left ventricle appears normal in size. There is borderline increased wall thickness/hypertrophy. Apical false tendon noted. Systolic function is normal with an ejection fraction of 60-65%. No segmental wall motion abnormalities. Normal diastolic function is present. Lateral E' is 10.30 cm/s. Medial E' is 7.29 cm/s. Left Atrium: Left atrium is normal in size. Left atrium volume index is normal. The left atrial volume index is 23.4 mL/m2. Right Ventricle: The right ventricular basal diameter is 36.0 mm. Systolic function is normal. Normal tricuspid annular plane systolic excursion. Aortic Valve: The aortic valve is trileaflet. The leaflets are mildly calcified. Tricuspid Valve: There is trace regurgitation. There is no evidence of tricuspid valve stenosis. RVSP calculated at 24 mmHg. Last Echo Echo complete W/O contrast Result Date: 07/03/2023 Left Ventricle: Left ventricle appears normal in size. There is borderline increased wall thickness/hypertrophy. Apical false tendon noted. Systolic function is normal with an ejection fraction of 60-65%. No segmental wall motion abnormalities. Normal diastolic function is present. Lateral E' is 10.30 cm/s. Medial E' is 7.29 cm/s. Left Atrium: Left atrium is normal in size. Left atrium volume index is normal. The left atrial volume index is 23.4 mL/m2. Right Ventricle: The right ventricular basal diameter is 36.0 mm. Systolic function is normal. Normal tricuspid annular plane systolic excursion. Aortic Valve: The aortic valve is trileaflet. The leaflets are mildly calcified. Tricuspid Valve: There is trace regurgitation. There is no evidence of tricuspid valve stenosis. RVSP calculated at 24 mmHg. Cultures Microbiology Results No results found for the last 168 hours. DISCHARGE MEDICATIONS: Your medication list ASK your doctor about these medications Instructions Last Dose Given Next Dose Due albuterol 90 mcg/actuation inhaler Commonly known as: PROVENTIL HFA;VENTOLIN HFA carisoprodoL 350 mg tablet Commonly known as: SOMA dextroamphetamine-amphetamine 30 mg tablet Commonly known as: ADDERALL amphetamine-dextroamphetamine XR 30 mg 24 hr capsule Commonly known as: ADDERALL XR amphetamine-dextroamphetamine XR 30 mg 24 hr capsule Commonly known as: ADDERALL XR gabapentin 800 mg tablet Commonly known as: NEURONTIN hydrALAZINE 25 mg tablet Commonly known as: APRESOLINE Take 2 tablets (50 mg total) by mouth every 12 (twelve) hours. insulin lispro 100 unit/mL injection Commonly known as: HumaLOG Take 2 units per 15 grams of carbohydrates up to 10 units per 75 grams of carbohydrates within 15 minutes of finishing meals together with correction insulin when needed. pantoprazole 20 mg EC tablet Commonly known as: PROTONIX tiZANidine 4 mg tablet Commonly known as: ZANAFLEX Ronal Logan MD PGY-1 Internal Medicine Resident Associated attestation - Letty Yee MD - 07/04/2023 4:00 PM EST I have seen and examined the patient on rounds with the resident/fellow. I repeated the brown components of the exam. I confirm the note and agree with the assessment and plan except as stated below: Letty Yee MD [facility] Critical Care Medicine documented in this encounter [facility] 07-04-2023 Plan of care note Discharge Against Medical Advice The patient has decided to leave against medical advice because she wants to leave the hospital. They have normal mental status and adequate capacity to make medical decisions. The patient refuses hospital admission and wants to be discharged. The risks have been explained to the patient, including returning to DKA, fatal electrolyte abnormalities, worsening illness, chronic pain, permanent disability and . The benefits of admission have also been explained, including the availability and proximity of nurses, physicians, monitoring, diagnostic testing, and treatment . The patient was able to understand and state the risks and benefits of hospital admission. This was witnessed by Dr. Darden and myself, Dr. Logan They had the opportunity to ask questions about their medical condition. The patient was treated to the extent that they would allow and knows that they may return for care at any time. The following therapies were provided at discharge: lantus 20 BID Ronal Logan MD PGY-1 [facility] [employer] 07-04-2023 Hospital Discharge instructions Ronal Logan MD - 07/04/2023 3:11 PM EST You are leaving the hospital against medical advice. If you begin experiencing new symptoms or worsening symptoms related to but not limited to this admission (fevers, chills, chest pain, shortness and breath, cough, abdominal pain, nausea, vomiting, diarrhea, weakness, altered mental status), please call 911 or go to the nearest hospital. Please take your medications as prescribed. No intense physical activity until further instructions by your PCP or other specialist at your scheduled follow-up. If prescribed any pain medications - do not drive or operate motor vehicles or heavy machinery. Follow-up with your PCP and/or specialist seen in the hospital within 1-2 weeks of discharge unless otherwise specified. These specialist services include: endocrinology, psychiatry You have been prescribed 20u lantus long acting to take in morning and in evening for your diabetes. Please inject 20u subcutaneously at breakfast and before bed to help manage your T1DM. documented in this encounter [employer] 07-04-2023 Plan of care note Problem: Pain Goal: Patient goal is pain score less than 4, able to rest, and participant in treatment plan as appropriate Description: INTERVENTIONS: 1. Encourage patient or legal surgical sales representative to report early pain and ask for pain medicine when needed 2. Assess pain using appropriate pain scale and include the scale used when documenting 3. Administer analgesics based on type and severity of pain and evaluate response within appropriate time frame 4. Implement non-pharmacological measures as appropriate and evaluate response 5. Consider cultural and social influences on pain and pain management 6. Notify LIP if interventions ineffective or patient reports new pain 7. Monitor vital signs including pulse ox, end-tidal CO2 based on pain intervention 8. Reassess pain per policy 9. Teach patient or legal surgical sales representative interventions for comforting Outcome: Progressing Note: Evaluation of progress towards goal: Pt pain assessed and reassessed per policy using verbal pain score 0-10. Problem: Safety Goal: Patient will be injury free during hospitalization Description: INTERVENTIONS: 1. Assess patient's risk for falls and implement fall prevention plan of care per policy 2. Provide and maintain a safe environment 3. Proper use of double Identifiers 4. Medication administration using the 5 rights 5. Hand hygiene 6. Specimens are labeled at the bedside 7. Instruct patient/ patient surgical sales representative about use of safety devices 8. Include patient/ patient surgical sales representative in decisions related to safety Outcome: Progressing Note: Evaluation of progress towards goal: SPH needs assessed and reassessed throughout shift. Pt 5 med rights done per policy. Problem: Infection Goal: Absence of infection during hospitalization Description: Interventions: 1. Assess and monitor for signs and symptoms of infection 2. Monitor lab/diagnostic results 3. Monitor all insertion sites i.e., indwelling lines, tubes and drains 4. Monitor endotracheal (as able) and nasal secretions for changes in amount and color 5. Administer medications as ordered 6. Instruct and encourage patient and family to use good hand hygiene technique 7. Identify and instruct patient/patient surgical sales representative in use of appropriate isolation precautions for identified infection/symptoms 8. Provide and discuss with patient/patient surgical sales representative on educational MDRO sheet 9. Encourage and monitor nutritional status daily and consult docent coordinator if indicated 10. Implement neutropenic guidelines as needed 11. Review exposure to history of communicable disease and recent travel history on admission 12. Encourage annual influenza vaccine 13. Encourage pneumonia vaccine Outcome: Progressing Note: Evaluation of progress towards goal: Pt receiving antibiotics. Labs drawn and monitored. Sites assessed and reassessed for s/s of infection. Problem: Knowledge Deficit Goal: Patient/patient surgical sales representative demonstrates understanding of disease process, treatment plan, medications, and discharge instructions Description: INTERVENTIONS 1. Complete learning assessment and assess knowledge base 2. Provide teaching at level of understanding 3. Provide teaching via preferred learning method(s) Outcome: Progressing Note: Evaluation of progress towards goal: Pt does not demonstrate understanding of all information provided, will continue to reassess and reinforce information as needed. Problem: Discharge Planning Goal: Discharge to post-acute care, other facility, or home with appropriate resources Description: Patient's goal is: INTERVENTIONS 1. Conduct assessment to determine patient/family and health care team treatment goals, and need for post-acute services based on payer coverage, community resources, and patient preferences, and barriers to discharge 2. Coordinate with Social work, Care Navigation, and Utilization Review to arrange appropriate level of services according to patient's needs based on patient preference and payer coverage in collaboration with the physician and health care team 3. Address psychosocial, clinical, and financial barriers to discharge as identified in assessment in conjunction with the patient/family and health care team 4. Consult appropriate ancillary services (i.e.. PT/OT/ST, etc) as needed 5. Communicate with and update the patient/family, physician, and health care team regarding progress on the discharge plan 6. Identify discharge learning needs (meds, wound care, etc). 7. Arrange for needed discharge transportation as appropriate Outcome: Progressing Note: Evaluation of progress towards goal: Pt not appropriate for discharge at this time. Problem: Moderate - High Risk Fall Score Description: German Fall Score of =/> 25 or indicated by [facility] Assessment Goal: Patient should be free from fall Description: Interventions: 1. Omega to environment 2. Hourly rounds addressing the 4 P's (Pain, Positioning, Possessions, Potty) 3. Clear area of hazards (spills, clutter, electrical cords, unnecessary equipment) 4. Place equipment (bed & TV controls, call light, phone, urinal) within reach 5. Encourage patient to wear glasses and hearing aides as appropriate 6. Maintain bed in lowest position 7. Lock wheels on bed/wheelchair 8. Provide adequate lighting, including night light 9. Assess need for additional bedding, food/fluids, pain med's prior to sleep/routinely 10. Provide gripper slippers or personal non-skid footwear 11. Teach patient and patient surgical sales representative to maintain environment for safety and engage in all aspects of fall prevention program 12. Remind patient to call for help before getting out of bed 13. Initiate bed/chair/exit alarms supportive devices as appropriate, (chair wedge, no-skid floor mat, raised edge mattress, hip protectors) 14. Locate patient bed assignment for optimal visualization 15. Evaluate and identify Safe Patient Handling Equipment needs 16. Provide supervision when out of bed or chair 17. Utilize gait belt as needed to assist with ambulation 18. Place adaptive equipment (cane, walker) within reach 19. Request patient surgical sales representative bring adaptive equipment/mobility aids from home or obtain and provide as needed 20. Consult pharmacy regarding effects of med's affecting mobility, cognition, and alternatives 21. Obtain physician order for PT if risk factors associated with mobility are present 22. Obtain physician order for OT as appropriate 23. Utilize diversional activities 24. Educate patient and patient surgical sales representative how to maintain a safe environment during visitation times (notify nurse prior to leaving bedside) 25. Consider appropriateness of medical or non-medical director/head team physician 26. Set up voiding schedule as appropriate (every 2 hours) Outcome: Progressing Note: Evaluation of progress towards goal: Pt bed locked and low, hourly rounding performed, safety needs assessed and reassessed throughout shift. Problem: Glucose Imbalance Goal: Clinical indication of glucose balance is achieved Description: Patient's goal is: INTERVENTIONS 1. Monitor blood glucose levels as ordered 2. Administer medications as ordered 3. Notify physician of ineffective treatment plan Outcome: Progressing Note: Evaluation of progress towards goal: BS drawn and managed per order set. Goal: Patient's discharge needs are met Description: Patient's goal is: INTERVENTIONS 1. Assess patient for self-management skills 2. Encourage participation in diabetes management 3. Identify potential discharge barriers on admission and throughout hospital stay 4. Involve patient/S.O. in discharge planning process 5. Communicate referral to extension service advisor as appropriate 6. Communicate referral to docent coordinator as appropriate 7. Collaborate with case management/licensed social worker for discharge needs Outcome: Progressing Note: Evaluation of progress towards goal: Pt not appropriate for discharge at this time. Problem: Potential for Compromised Skin Integrity Goal: Skin integrity is maintained or improved Description: Patient's goal is: INTERVENTIONS 1. Perform initial skin assessment on admission and as needed 2. Turn patient every 2 hours and PRN 3. Relieve pressure to bony prominences 4. Avoid shearing 5. Keep skin clean and dry 6. Alternate a full bath with partial baths for elderly 7. Encourage use of lotion/moisturizer on skin 8. Monitor patient's hygiene practices 9. Float heels 10. Collaborate with interdisciplinary team and initiate plans and interventions as needed Outcome: Progressing Note: Evaluation of progress towards goal: Pt encouraged frequent position changes. Heels floated. Skin care provided. Goal: Patient's nutritional intake is adequate Description: Patient's goal is: INTERVENTIONS 1. Assess and monitor food intake and supplements, patient food preferences, nausea, vomiting, labs, oral cavity (gums, teeth, tongue, mucosa), proper denture fit, and cultural beliefs 2. Monitor for signs of hypoglycemia and hyperglycemia 3. Collaborate with interdisciplinary team and initiate plan and interventions as ordered 4. Monitor patient's weight 5. Assist patient with meals/food selection 6. Assist patient with eating 7. Allow adequate time for meals 8. Provide pleasant environment during mealtime 9. Increase social contact during mealtimes 10. Plan activities to conserve energy 11. Encourage/perform oral hygiene as appropriate 12. Encourage patient to take dietary supplement as ordered 13. Collaborate with clinical docent coordinator 14. Include patient/ patient's surgical sales representative in decisions related to nutrition Outcome: Progressing Note: Evaluation of progress towards goal: PT encouraged PO intake. Problem: Urinary Incontinence Goal: Perineal skin integrity is maintained or improved Description: INTERVENTIONS 1. Assess genitourinary system, perineal skin, labs (urinalysis), and history of incontinence to include past management, aggravating, and alleviating factors 2. Keep skin clean and dry 3. Apply skin protectant 4. Develop skin care regimen 5. Provide privacy when changing patients incontinence device to maintain their dignity 6. Consider placing an indwelling catheter 7. Collaborate with interdisciplinary team and initiate plans and interventions as needed Outcome: Progressing Note: Evaluation of progress towards goal: Jeanette and carballo care done prn and per policy. [facility] 07-03-2023 Plan of care note Problem: Pain Goal: Patient goal is pain score less than 4, able to rest, and participant in treatment plan as appropriate Description: INTERVENTIONS: 1. Encourage patient or legal surgical sales representative to report early pain and ask for pain medicine when needed 2. Assess pain using appropriate pain scale and include the scale used when documenting 3. Administer analgesics based on type and severity of pain and evaluate response within appropriate time frame 4. Implement non-pharmacological measures as appropriate and evaluate response 5. Consider cultural and social influences on pain and pain management 6. Notify LIP if interventions ineffective or patient reports new pain 7. Monitor vital signs including pulse ox, end-tidal CO2 based on pain intervention 8. Reassess pain per policy 9. Teach patient or legal surgical sales representative interventions for comforting Outcome: Progressing Note: Evaluation of progress towards goal: Patient is assessed every 4 hours for pain. Patients vitals are monitored and verbals are assessed. Problem: Safety Goal: Patient will be injury free during hospitalization Description: INTERVENTIONS: 1. Assess patient's risk for falls and implement fall prevention plan of care per policy 2. Provide and maintain a safe environment 3. Proper use of double Identifiers 4. Medication administration using the 5 rights 5. Hand hygiene 6. Specimens are labeled at the bedside 7. Instruct patient/ patient surgical sales representative about use of safety devices 8. Include patient/ patient surgical sales representative in decisions related to safety Outcome: Progressing Note: Evaluation of progress towards goal: Patient is free of injury at present time. Bed brakes locked and lowered. Call light in reach and frequent rounding to ensure safety. Problem: Infection Goal: Absence of infection during hospitalization Description: Interventions: 1. Assess and monitor for signs and symptoms of infection 2. Monitor lab/diagnostic results 3. Monitor all insertion sites i.e., indwelling lines, tubes and drains 4. Monitor endotracheal (as able) and nasal secretions for changes in amount and color 5. Administer medications as ordered 6. Instruct and encourage patient and family to use good hand hygiene technique 7. Identify and instruct patient/patient surgical sales representative in use of appropriate isolation precautions for identified infection/symptoms 8. Provide and discuss with patient/patient surgical sales representative on educational MDRO sheet 9. Encourage and monitor nutritional status daily and consult docent coordinator if indicated 10. Implement neutropenic guidelines as needed 11. Review exposure to history of communicable disease and recent travel history on admission 12. Encourage annual influenza vaccine 13. Encourage pneumonia vaccine Outcome: Progressing Note: Evaluation of progress towards goal: Patient is afebrile at present time. Will monitor labs and vital signs. Problem: Knowledge Deficit Goal: Patient/patient surgical sales representative demonstrates understanding of disease process, treatment plan, medications, and discharge instructions Description: INTERVENTIONS 1. Complete learning assessment and assess knowledge base 2. Provide teaching at level of understanding 3. Provide teaching via preferred learning method(s) Outcome: Progressing Note: Evaluation of progress towards goal: Patient is updated on treatments and medications. Will continue to educate. Problem: Moderate - High Risk Fall Score Description: German Fall Score of =/> 25 or indicated by [facility] Assessment Goal: Patient should be free from fall Description: Interventions: 1. Omega to environment 2. Hourly rounds addressing the 4 P's (Pain, Positioning, Possessions, Potty) 3. Clear area of hazards (spills, clutter, electrical cords, unnecessary equipment) 4. Place equipment (bed & TV controls, call light, phone, urinal) within reach 5. Encourage patient to wear glasses and hearing aides as appropriate 6. Maintain bed in lowest position 7. Lock wheels on bed/wheelchair 8. Provide adequate lighting, including night light 9. Assess need for additional bedding, food/fluids, pain med's prior to sleep/routinely 10. Provide gripper slippers or personal non-skid footwear 11. Teach patient and patient surgical sales representative to maintain environment for safety and engage in all aspects of fall prevention program 12. Remind patient to call for help before getting out of bed 13. Initiate bed/chair/exit alarms supportive devices as appropriate, (chair wedge, no-skid floor mat, raised edge mattress, hip protectors) 14. Locate patient bed assignment for optimal visualization 15. Evaluate and identify Safe Patient Handling Equipment needs 16. Provide supervision when out of bed or chair 17. Utilize gait belt as needed to assist with ambulation 18. Place adaptive equipment (cane, walker) within reach 19. Request patient surgical sales representative bring adaptive equipment/mobility aids from home or obtain and provide as needed 20. Consult pharmacy regarding effects of med's affecting mobility, cognition, and alternatives 21. Obtain physician order for PT if risk factors associated with mobility are present 22. Obtain physician order for OT as appropriate 23. Utilize diversional activities 24. Educate patient and patient surgical sales representative how to maintain a safe environment during visitation times (notify nurse prior to leaving bedside) 25. Consider appropriateness of medical or non-medical director/head team physician 26. Set up voiding schedule as appropriate (every 2 hours) Outcome: Progressing Note: Evaluation of progress towards goal: Pt is free from falls at present time. Bed locked and lowered at current time. Call light in reach. Problem: Potential for Compromised Skin Integrity Goal: Skin integrity is maintained or improved Description: Patient's goal is: INTERVENTIONS 1. Perform initial skin assessment on admission and as needed 2. Turn patient every 2 hours and PRN 3. Relieve pressure to bony prominences 4. Avoid shearing 5. Keep skin clean and dry 6. Alternate a full bath with partial baths for elderly 7. Encourage use of lotion/moisturizer on skin 8. Monitor patient's hygiene practices 9. Float heels 10. Collaborate with interdisciplinary team and initiate plans and interventions as needed Outcome: Progressing Note: Evaluation of progress towards goal: Patient has indwelling catheter to help with skin integrity. Will continue to monitor. Patient turned every 2 hours with pillow support. [facility] 07-03-2023 Consult note Associated Order (s): IP CONSULT TO ENDOCRINOLOGY Images from the original note were not included. [facility] [place] [facility] [place] [facility], [place] [address] [place] [address] Service Pager: Macy Drew MD, Interim Chief MD Catrina Mooney PA-C Alexandrea Vizzaccaro, PA-C Austin Howard, PA-C Aneeba Farooqi, MD, Fellow Stanton Sylvester MD, Fellow NO NEED to PAGE for NEW CONSULTS Page for immediate attention. With this consult we assume full responsibility for diabetes care. Diabetes Management Service Consult Note Patient : Douglas Cordova; 28 y.o. Location: Admit Date: 07/02/2023 Hospital Day: Hospital Day: 2 Reason for Consult: Diabetes management Blood Glucose Monitoring Results, Interpretation: Results from last 7 days Lab Units 07/03/23 1200 07/03/23 0944 07/03/23 0820 07/03/23 0712 07/03/23 0600 07/03/23 0513 07/03/23 0410 07/03/23 0313 07/03/23 0220 BEDSIDE GLUCOSE mg/dL 130* 149* 200* 215* 253* 219* 223* 160* 154* GLUCOSE mg/dL -- -- -- -- -- -- 214* -- -- Results/Impression/Conclusion: [] Basal/Bolus insulin imbalance with significant glycemic variability [] Overnight blood glucose reduction [] Fasting hypoglycemia [] Postprandial hypoglyemia: after [] breakfast [] lunch [] evening meal [] nighttime snack [] Hypoglycemia due to over-correction [x] Fasting hyperglycemia [] Postprandial hyperglycemia: after [] breakfast [] lunch [] evening meal [] nighttime snack [] Hyperglycemia due to missing the scheduled dose of insulin/glucose-lowering medication Target glucose level in general care patients is 80 - 130mg/dL before meals, random glucose less than 180mg/dL. In ICU patients, target range is 140-180mg/dL in accordance with recommendations from the [place] [employer]. Blood glucoses above 200 mg/dl are CMS monitored performance measures. ASSESSMENT and PLAN: Douglas Cordova has diabetes mellitus type 1 complicated by peripheral neuropathy. Admitted with DKA. 1. -DKA (diabetic ketoacidosis): IV insulin initiated 07/02/23 DISCONTINUE INSULIN INFUSION IF LESS THAN 1 UNIT/HOUR IS REQUIRED TO KEEP BLOOD GLUCOSES ON TARGET (110-150 MG/DL) OR BELOW TARGET (70-109 MG/DL) FOR 2 CONSECUTIVE MEASUREMENTS. 2. DM Type 1 with hyperglycemia Last HbA1c: Lab Results Component Value Date HGBA1C 15.5 (H) 07/02/2023 HGBA1C >16.5 (H) 06/07/2021 Results from last 7 days Lab Units 07/03/23 0410 CREATININE mg/dL 0.53 3. History of medication non compliance The following changes were made: Basal insulin: Glargine (or Lantus) : _20_units, [] daily AM [] daily at bedtime [x] BID (9 AM, 9 PM) Prandial or meal insulin: Lispro (or Humalog) [x] by insulin to carb ratio = _2_units: 15 grams of carbohydrate in a meal AC Correctional insulin: Lispro (or Humalog): [] 1-5 AC (above 150), 1-4 HS (above 200) [] 2-10 AC (above 150), 2-8 HS (above 200) For while NPO or tube feeding or TPN [] 1-5 q4h (above 150) [] 2-10 q4h (above 150) Thank you for consulting our Diabetes Management Team (Endocrinology). We will continue to follow up. History of Present Illness: Douglas Cordova is a 28 y.o. female with diabetes mellitus type 1 who was admitted with DKA. Past medical history of uncontrolled T1DM d/t insulin noncompliance, numerous DKA exacerbations requiring multiple ICU admissions, diabetic neuropathy, psoriasis, adhd, hx of methamphetamine use, recent incarceration. Per chart, patient initially presented to [facility] 07/02 via EMS for altered mental status. Patient had last taken her insulin for T1DM sometime before . Was unable to get filled over the holidays. She was found to be in DKA and iv insulin initiated. Patient remains acutely ill this afternoon and did not want to speak with me. When asked about home insulin she said she's not sure how much she takes and that she hasn't been taking any at all recently. She feels nauseated and vomited this morning. She hasn't eaten anything and endorses poor appetite. Our service was consulted for her in 2020. She was on Lantus 20 units BID, Lispro 3 units per 15 grams of carbs plus medium intensity correction scale. I did not find any documentation from manager copy follow up. Diabetes History: Duration of Diabetes: Diagnosed at age 6 Complications of Diabetes: Retinopathy: No Nephropathy: No Peripheral neuropathy: Yes Autonomic neuropathy: No Cardiovascular disease: No Cerebrovascular disease: No Peripheral arterial disease: No Home regimen: Diabetes medications: per chart: lispro 2 units per 15 grams of carbs. No orders for lispro Home blood glucose monitoring: not reported Hypoglycemia frequency: unknown Hypoglycemic awareness: unknown Family History: Family history of diabetes: Yes Who: mother Steroids / Other Glycemia-Affecting Medications: [No] Inpatient diet/nutrition: Dietary Orders (From admission, onward) Start Ordered 07/03/23 0847 Adult diet Regular Texture; Consistent Carb 195 grams (1500 kcal) Diet effective now Question Answer Comment Diet Type: Regular Texture Carbohydrate Modifiers: Consistent Carb 195 grams (1500 kcal) 07/03/23 0846 Past Medical History: Diagnosis Date Anxiety Asthma Depression Diabetes mellitus type I ([facility]) DM type 1 (diabetes mellitus, type 1) ([facility]) Genital herpes GERD (gastroesophageal reflux disease) Herpes genitalis Psoriasis Visual impairment glasses Past Surgical History: Procedure Laterality Date SECTION 2 Prior to Admission medications Medication Sig Start Date End Date Taking? Authorizing Provider amphetamine-dextroamphetamine XR (ADDERALL XR) 30 mg 24 hr capsule Take 1 capsule (30 mg total) by mouth every morning Indications: attention deficit disorder with hyperactivity. Yes Not In System Ref Prov amphetamine-dextroamphetamine XR (ADDERALL XR) 30 mg 24 hr capsule Take 1 capsule (30 mg total) by mouth every morning. Max Daily Amount: 30 mg Yes Not In System Ref Prov dextroamphetamine-amphetamine (ADDERALL) 30 mg tablet Take 1 tablet (30 mg total) by mouth in the morning. Yes Not In System Ref Prov gabapentin (NEURONTIN) 800 mg tablet Take 1 tablet (800 mg total) by mouth 3 (three) times a day. Yes Not In System Ref Prov albuterol (PROVENTIL HFA;VENTOLIN HFA) 90 mcg/actuation inhaler Inhale 2 puffs every 6 (six) hours as needed for wheezing. Patient not taking: Reported on 07/03/2023 Not In System Ref Prov carisoprodoL (SOMA) 350 mg tablet Take 1 tablet (350 mg total) by mouth 4 (four) times a day as needed for muscle spasms Indications: muscle spasm. Patient not taking: Reported on 07/03/2023 Not In System Ref Prov hydrALAZINE (APRESOLINE) 25 mg tablet Take 2 tablets (50 mg total) by mouth every 12 (twelve) hours. Patient not taking: Reported on 06/10/2023 06/18/22 Cem Bhagat APRN-DANIEL insulin lispro (HumaLOG) 100 unit/mL injection Take 2 units per 15 grams of carbohydrates up to 10 units per 75 grams of carbohydrates within 15 minutes of finishing meals together with correction insulin when needed. Patient taking differently: 1 ml (10 units) per carb 07/09/18 Maxine Baez MD pantoprazole (PROTONIX) 20 mg EC tablet Take 30 mg by mouth in the morning. Patient not taking: Reported on 07/03/2023 Not In System Ref Prov tiZANidine (ZANAFLEX) 4 mg tablet Take 1 tablet (4 mg total) by mouth every 8 (eight) hours as needed for muscle spasms. Patient not taking: Reported on 07/03/2023 Not In System Ref Prov Current Facility-Administered Medications: calcium gluconate IVPB 1000 mg/50 mL (20 mg/mL premix), 1,000 mg, intravenous, PRN, Stopped at 07/03/23 1127 OR calcium gluconate IVPB 2000 mg/100 mL (20 mg/mL premix), 2,000 mg, intravenous, PRN OR calcium gluconate 3,000 mg in sodium chloride 0.9 % 100 mL IVPB, 3,000 mg, intravenous, PRN, Ronal Logan MD D5 % and lactated ringer's 1,000 mL with potassium chloride 40 mEq infusion, 250 mL/hr, intravenous, Continuous, Chas Darden DO, Held at 07/03/23 1115 dextrose (GLUTOSE) 40 % gel 15 g, 15 g, oral, PRN, Ronal Logan MD dextrose 5 % (D5W) infusion, 100 mL/hr, intravenous, Continuous PRN, Ronal Logan MD dextrose 5 % and sodium chloride 0.9 % with KCl 40 mEq/L infusion, 250 mL/hr, intravenous, Continuous PRN, Ronal Logan MD dextrose 50 % in water (D50W) 50% solution 25 mL, 25 mL, intravenous, PRN, Ronal Logan MD enoxaparin (LOVENOX) syringe 40 mg, 40 mg, subcutaneous, Daily, Hanna Roberto MD glucagon HCL injection 1 mg, 1 mg, intramuscular, PRN, Ronal Logan MD insulin glargine (LANTUS, SEMGLEE) injection pen 20 Units, 20 Units, subcutaneous, BID, Catrina Longo PA-C insulin lispro (HumaLOG) injection 2-10 Units, 2-10 Units, subcutaneous, With meals and nightly, Catrina Longo PA-C insulin regular (MYXREDLIN) infusion 100 units/100 mL in sodium chloride 0.9% (1 unit/mL premix), 0.2-54 Units/hr, intravenous, Continuous, Ronal Logan MD, Stopped at 07/03/23 0940 magnesium sulfate IVPB 2000 mg/50 mL in iso-osmotic water (40 mg/mL premix), 2,000 mg, intravenous, PRN, Stopped at 07/02/23 2150 OR magnesium sulfate IVPB 4000 mg/100 mL in iso-osmotic water (40 mg/mL premix), 4,000 mg, intravenous, PRN, Ronal Logan MD potassium chloride (K-TAB,KLOR-CON) CR tablet 20-50 mEq, 20-50 mEq, oral, PRN OR potassium chloride (KAYCIEL) 20 mEq/15 mL solution 20-50 mEq, 20-50 mEq, oral, PRN, Ronal Logan MD potassium chloride IVPB 10 mEq/50 mL in water (0.2 mEq/mL premix), 10 mEq, intravenous, PRN, Stopped at 07/03/23 1253 OR potassium chloride IVPB 10 mEq/100 mL in water (0.1 mEq/mL premix), 10 mEq, intravenous, PRN, Ronal Logan MD prochlorperazine (COMPAZINE) injection 5 mg, 5 mg, intravenous, Q6H PRN, Chas Darden, DO, 5 mg at 07/03/23 1255 sodium phosphate 20 mmol in sodium chloride 0.9 % 250 mL IVPB, 20 mmol, intravenous, PRN OR sodium phosphate 20 mmol in sodium chloride 0.9 % 100 mL IVPB, 20 mmol, intravenous, PRN, Last Rate: 26.7 mL/hr at 07/03/23 1154, 20 mmol at 07/03/23 1154 OR sod phos di, mono-K phos mono (K-PHOS NEUTRAL) 250 mg tablet 2 tablet, 2 tablet, oral, PRN, Ronal Logan MD [CANCELED] Consult PICC nurse - Midline, , , Once AND sodium chloride 0.9 % flush 10 mL, 10 mL, intravenous, Q12H, 10 mL at 07/03/23 0533 AND sodium chloride 0.9 % flush 10 mL, 10 mL, intravenous, PRN AND sodium chloride 0.9 % flush 20 mL, 20 mL, intravenous, PRN, Ronal Logan MD [COMPLETED] Consult PICC nurse - Midline, , , Once AND sodium chloride 0.9 % flush 20 mL, 20 mL, intravenous, Q12H, 20 mL at 07/03/23 0533 AND sodium chloride 0.9 % flush 20 mL, 20 mL, intravenous, PRN AND sodium chloride 0.9 % flush 40 mL, 40 mL, intravenous, PRN, Ronal Logan MD sodium chloride 0.9 % infusion, 10 mL/hr, intravenous, Continuous PRN, Ronal Logan MD sodium chloride 0.9 % infusion, 10 mL/hr, intravenous, Continuous PRN, Ronal Logan MD, Last Rate: 10 mL/hr at 07/03/23409, Rate Verify at 07/03/23409 sodium chloride 0.9 % infusion, 10 mL/hr, intravenous, Continuous PRN, Ronal Logan MD, Last Rate: 10 mL/hr at 07/03/23626, Rate Verify at 07/03/23626 Allergies Allergen Reactions Penicillins Anaphylaxis Shellfish Containing Products Anaphylaxis Shellfish Derived Social History Tobacco Use Smoking status: Every Day Packs/day: .5 Types: Cigarettes Smokeless tobacco: Never Tobacco comments: hasn't smoked in 1 week, one cig per day Vaping Use Vaping Use: Every day Substances: Nicotine Substance Use Topics Alcohol use: No Drug use: Not Currently Types: Methamphetamines Review of Systems: Review of Systems Constitutional: Negative for appetite change. Gastrointestinal: Positive for nausea and vomiting. Physical Exam: BP 129/82 Pulse 82 Temp 36.8 C (98.3 F) (Oral) Resp 21 Ht 172.7 cm (5' 8 ) Wt 61.8 kg (136 lb 3.9 oz) LMP 04/01/2023 SpO2 100% BMI 20.72 kg/m Physical Exam Constitutional: Appearance: She is ill-appearing. Eyes: Extraocular Movements: Extraocular movements intact. Cardiovascular: Rate and Rhythm: Normal rate. Pulmonary: Effort: Pulmonary effort is normal. No respiratory distress. Neurological: Mental Status: She is alert and oriented to person, place, and time. Intake/Output: Intake/Output Summary (Last 24 hours) at 07/03/2023 1345 Last data filed at 07/03/2023 1300 Gross per 24 hour Intake 5922.75 ml Output 4080 ml Net 1842.75 ml Recent Labs: Results from last 7 days Lab Units 07/03/23 0410 07/02/23 1705 WBC X10E9/L 12.4* 19.2* HEMOGLOBIN g/dL 10.8* 11.5* HEMATOCRIT % 33.7* 36.5 PLATELETS X10E9/L 231 261 Results from last 7 days Lab Units 07/03/23 0842 07/03/23 0410 07/02/23 2110 07/02/23 1705 SODIUM mmol/L 139 139 < > 141 POTASSIUM mmol/L 3.0* 3.7 < > 4.6 CHLORIDE mmol/L 116* 117* < > 116* CO2 mmol/L 15* 12* < > 5* BUN mg/dL -- 8 -- 16 CREATININE mg/dL -- 0.53 -- 0.71 CALCIUM mg/dL -- 6.6* -- 7.0* < > = values in this interval not displayed. Results from last 7 days Lab Units 07/03/23 0410 07/02/23 1705 ALBUMIN g/dL 3.4 4.0 Last HbA1c: Lab Results Component Value Date HGBA1C 15.5 (H) 07/02/2023 HGBA1C >16.5 (H) 06/07/2021 Catrina Longo PA-C 07/03/23 1351 [facility] 07-03-2023 Consult note Associated Order (s): IP CONSULT TO ENDOCRINOLOGY Images from the original note were not included. [facility] [place] [facility] [place] [facility] [place] [address] [place] [address] Service Pager: Macy Drew MD, Interim Chief MD Catrina Mooney PA-C Alexandrea Vizzaccaro, PA-C Austin Howard, PA-C Aneeba Farooqi, MD, Fellow Stanton Sylvester MD, Fellow NO NEED to PAGE for NEW CONSULTS Page for immediate attention. With this consult we assume full responsibility for diabetes care. Diabetes Management Service Consult Note Patient : Douglas Cordova; 28 y.o. Location: Admit Date: 07/02/2023 Hospital Day: Hospital Day: 2 Reason for Consult: Diabetes management Blood Glucose Monitoring Results, Interpretation: Results from last 7 days Lab Units 07/03/23 1200 07/03/23 0944 07/03/23 0820 07/03/23 0712 07/03/23 0600 07/03/23 0513 07/03/23 0410 07/03/23 0313 07/03/23 0220 BEDSIDE GLUCOSE mg/dL 130* 149* 200* 215* 253* 219* 223* 160* 154* GLUCOSE mg/dL -- -- -- -- -- -- 214* -- -- Results/Impression/Conclusion: [] Basal/Bolus insulin imbalance with significant glycemic variability [] Overnight blood glucose reduction [] Fasting hypoglycemia [] Postprandial hypoglyemia: after [] breakfast [] lunch [] evening meal [] nighttime snack [] Hypoglycemia due to over-correction [x] Fasting hyperglycemia [] Postprandial hyperglycemia: after [] breakfast [] lunch [] evening meal [] nighttime snack [] Hyperglycemia due to missing the scheduled dose of insulin/glucose-lowering medication Target glucose level in general care patients is 80 - 130mg/dL before meals, random glucose less than 180mg/dL. In ICU patients, target range is 140-180mg/dL in accordance with recommendations from the [place] [employer]. Blood glucoses above 200 mg/dl are CMS monitored performance measures. ASSESSMENT and PLAN: Douglas Cordova has diabetes mellitus type 1 complicated by peripheral neuropathy. Admitted with DKA. 1. -DKA (diabetic ketoacidosis): IV insulin initiated 07/02/23 DISCONTINUE INSULIN INFUSION IF LESS THAN 1 UNIT/HOUR IS REQUIRED TO KEEP BLOOD GLUCOSES ON TARGET (110-150 MG/DL) OR BELOW TARGET (70-109 MG/DL) FOR 2 CONSECUTIVE MEASUREMENTS. 2. DM Type 1 with hyperglycemia Last HbA1c: Lab Results Component Value Date HGBA1C 15.5 (H) 07/02/2023 HGBA1C >16.5 (H) 06/07/2021 Results from last 7 days Lab Units 07/03/23 0410 CREATININE mg/dL 0.53 3. History of medication non compliance The following changes were made: Basal insulin: Glargine (or Lantus) : _20_units, [] daily AM [] daily at bedtime [x] BID (9 AM, 9 PM) Prandial or meal insulin: Lispro (or Humalog) [x] by insulin to carb ratio = _2_units: 15 grams of carbohydrate in a meal AC Correctional insulin: Lispro (or Humalog): [] 1-5 AC (above 150), 1-4 HS (above 200) [] 2-10 AC (above 150), 2-8 HS (above 200) For while NPO or tube feeding or TPN [] 1-5 q4h (above 150) [] 2-10 q4h (above 150) Thank you for consulting our Diabetes Management Team (Endocrinology). We will continue to follow up. History of Present Illness: Douglas Cordova is a 28 y.o. female with diabetes mellitus type 1 who was admitted with DKA. Past medical history of uncontrolled T1DM d/t insulin noncompliance, numerous DKA exacerbations requiring multiple ICU admissions, diabetic neuropathy, psoriasis, adhd, hx of methamphetamine use, recent incarceration. Per chart, patient initially presented to [facility] 07/02 via EMS for altered mental status. Patient had last taken her insulin for T1DM sometime before apsen. Was unable to get filled over the holidays. She was found to be in DKA and iv insulin initiated. Patient remains acutely ill this afternoon and did not want to speak with me. When asked about home insulin she said she's not sure how much she takes and that she hasn't been taking any at all recently. She feels nauseated and vomited this morning. She hasn't eaten anything and endorses poor appetite. Our service was consulted for her in 2020. She was on Lantus 20 units BID, Lispro 3 units per 15 grams of carbs plus medium intensity correction scale. I did not find any documentation from manager copy follow up. Diabetes History: Duration of Diabetes: Diagnosed at age 6 Complications of Diabetes: Retinopathy: No Nephropathy: No Peripheral neuropathy: Yes Autonomic neuropathy: No Cardiovascular disease: No Cerebrovascular disease: No Peripheral arterial disease: No Home regimen: Diabetes medications: per chart: lispro 2 units per 15 grams of carbs. No orders for lispro Home blood glucose monitoring: not reported Hypoglycemia frequency: unknown Hypoglycemic awareness: unknown Family History: Family history of diabetes: Yes Who: mother Steroids / Other Glycemia-Affecting Medications: [No] Inpatient diet/nutrition: Dietary Orders (From admission, onward) Start Ordered 07/03/23 0847 Adult diet Regular Texture; Consistent Carb 195 grams (1500 kcal) Diet effective now Question Answer Comment Diet Type: Regular Texture Carbohydrate Modifiers: Consistent Carb 195 grams (1500 kcal) 07/03/23 0846 Past Medical History: Diagnosis Date Anxiety Asthma Depression Diabetes mellitus type I ([facility]) DM type 1 (diabetes mellitus, type 1) ([facility]) Genital herpes GERD (gastroesophageal reflux disease) Herpes genitalis Psoriasis Visual impairment glasses Past Surgical History: Procedure Laterality Date SECTION 2 Prior to Admission medications Medication Sig Start Date End Date Taking? Authorizing Provider amphetamine-dextroamphetamine XR (ADDERALL XR) 30 mg 24 hr capsule Take 1 capsule (30 mg total) by mouth every morning Indications: attention deficit disorder with hyperactivity. Yes Not In System Ref Prov amphetamine-dextroamphetamine XR (ADDERALL XR) 30 mg 24 hr capsule Take 1 capsule (30 mg total) by mouth every morning. Max Daily Amount: 30 mg Yes Not In System Ref Prov dextroamphetamine-amphetamine (ADDERALL) 30 mg tablet Take 1 tablet (30 mg total) by mouth in the morning. Yes Not In System Ref Prov gabapentin (NEURONTIN) 800 mg tablet Take 1 tablet (800 mg total) by mouth 3 (three) times a day. Yes Not In System Ref Prov albuterol (PROVENTIL HFA;VENTOLIN HFA) 90 mcg/actuation inhaler Inhale 2 puffs every 6 (six) hours as needed for wheezing. Patient not taking: Reported on 07/03/2023 Not In System Ref Prov carisoprodoL (SOMA) 350 mg tablet Take 1 tablet (350 mg total) by mouth 4 (four) times a day as needed for muscle spasms Indications: muscle spasm. Patient not taking: Reported on 07/03/2023 Not In System Ref Prov hydrALAZINE (APRESOLINE) 25 mg tablet Take 2 tablets (50 mg total) by mouth every 12 (twelve) hours. Patient not taking: Reported on 06/10/2023 06/18/22 Cem Bhagat APRN-DANIEL insulin lispro (HumaLOG) 100 unit/mL injection Take 2 units per 15 grams of carbohydrates up to 10 units per 75 grams of carbohydrates within 15 minutes of finishing meals together with correction insulin when needed. Patient taking differently: 1 ml (10 units) per carb 07/09/18 Maxine Baez MD pantoprazole (PROTONIX) 20 mg EC tablet Take 30 mg by mouth in the morning. Patient not taking: Reported on 07/03/2023 Not In System Ref Prov tiZANidine (ZANAFLEX) 4 mg tablet Take 1 tablet (4 mg total) by mouth every 8 (eight) hours as needed for muscle spasms. Patient not taking: Reported on 07/03/2023 Not In System Ref Prov Current Facility-Administered Medications: calcium gluconate IVPB 1000 mg/50 mL (20 mg/mL premix), 1,000 mg, intravenous, PRN, Stopped at 07/03/23 1127 OR calcium gluconate IVPB 2000 mg/100 mL (20 mg/mL premix), 2,000 mg, intravenous, PRN OR calcium gluconate 3,000 mg in sodium chloride 0.9 % 100 mL IVPB, 3,000 mg, intravenous, PRN, Ronal Logan MD D5 % and lactated ringer's 1,000 mL with potassium chloride 40 mEq infusion, 250 mL/hr, intravenous, Continuous, Chas Darden DO, Held at 07/03/23 1115 dextrose (GLUTOSE) 40 % gel 15 g, 15 g, oral, PRN, Ronal Logan MD dextrose 5 % (D5W) infusion, 100 mL/hr, intravenous, Continuous PRN, Ronal Logan MD dextrose 5 % and sodium chloride 0.9 % with KCl 40 mEq/L infusion, 250 mL/hr, intravenous, Continuous PRN, Ronal Logan MD dextrose 50 % in water (D50W) 50% solution 25 mL, 25 mL, intravenous, PRN, Ronal Logan MD enoxaparin (LOVENOX) syringe 40 mg, 40 mg, subcutaneous, Daily, Hanna Roberto MD glucagon HCL injection 1 mg, 1 mg, intramuscular, PRN, Ronal Logan MD insulin glargine (LANTUS, SEMGLEE) injection pen 20 Units, 20 Units, subcutaneous, BID, Catrina Longo PA-C insulin lispro (HumaLOG) injection 2-10 Units, 2-10 Units, subcutaneous, With meals and nightly, Catrina Longo PA-C insulin regular (MYXREDLIN) infusion 100 units/100 mL in sodium chloride 0.9% (1 unit/mL premix), 0.2-54 Units/hr, intravenous, Continuous, Ronal Logan MD, Stopped at 07/03/23 0940 magnesium sulfate IVPB 2000 mg/50 mL in iso-osmotic water (40 mg/mL premix), 2,000 mg, intravenous, PRN, Stopped at 07/02/23 2150 OR magnesium sulfate IVPB 4000 mg/100 mL in iso-osmotic water (40 mg/mL premix), 4,000 mg, intravenous, PRN, Ronal Logan MD potassium chloride (K-TAB,KLOR-CON) CR tablet 20-50 mEq, 20-50 mEq, oral, PRN OR potassium chloride (KAYCIEL) 20 mEq/15 mL solution 20-50 mEq, 20-50 mEq, oral, PRN, Ronal Logan MD potassium chloride IVPB 10 mEq/50 mL in water (0.2 mEq/mL premix), 10 mEq, intravenous, PRN, Stopped at 07/03/23 1253 OR potassium chloride IVPB 10 mEq/100 mL in water (0.1 mEq/mL premix), 10 mEq, intravenous, PRN, Ronal Logan MD prochlorperazine (COMPAZINE) injection 5 mg, 5 mg, intravenous, Q6H PRN, Chas Darden DO, 5 mg at 07/03/23 1255 sodium phosphate 20 mmol in sodium chloride 0.9 % 250 mL IVPB, 20 mmol, intravenous, PRN OR sodium phosphate 20 mmol in sodium chloride 0.9 % 100 mL IVPB, 20 mmol, intravenous, PRN, Last Rate: 26.7 mL/hr at 07/03/23 1154, 20 mmol at 07/03/23 1154 OR sod phos di, mono-K phos mono (K-PHOS NEUTRAL) 250 mg tablet 2 tablet, 2 tablet, oral, PRN, Ronal Logan MD [CANCELED] Consult PICC nurse - Midline, , , Once AND sodium chloride 0.9 % flush 10 mL, 10 mL, intravenous, Q12H, 10 mL at 07/03/23 0533 AND sodium chloride 0.9 % flush 10 mL, 10 mL, intravenous, PRN AND sodium chloride 0.9 % flush 20 mL, 20 mL, intravenous, PRN, Ronal Logan MD [COMPLETED] Consult PICC nurse - Midline, , , Once AND sodium chloride 0.9 % flush 20 mL, 20 mL, intravenous, Q12H, 20 mL at 07/03/23 05 AND sodium chloride 0.9 % flush 20 mL, 20 mL, intravenous, PRN AND sodium chloride 0.9 % flush 40 mL, 40 mL, intravenous, PRN, Ronal Logan MD sodium chloride 0.9 % infusion, 10 mL/hr, intravenous, Continuous PRN, Ronal Logan MD sodium chloride 0.9 % infusion, 10 mL/hr, intravenous, Continuous PRN, Ronal Logan MD, Last Rate: 10 mL/hr at 07/03/23 0410, Rate Verify at 07/03/23 041 sodium chloride 0.9 % infusion, 10 mL/hr, intravenous, Continuous PRN, Ronal Logan MD, Last Rate: 10 mL/hr at 07/03/23626, Rate Verify at 07/03/23626 Allergies Allergen Reactions Penicillins Anaphylaxis Shellfish Containing Products Anaphylaxis Shellfish Derived Social History Tobacco Use Smoking status: Every Day Packs/day: .5 Types: Cigarettes Smokeless tobacco: Never Tobacco comments: hasn't smoked in 1 week, one cig per day Vaping Use Vaping Use: Every day Substances: Nicotine Substance Use Topics Alcohol use: No Drug use: Not Currently Types: Methamphetamines Review of Systems: Review of Systems Constitutional: Negative for appetite change. Gastrointestinal: Positive for nausea and vomiting. Physical Exam: BP 129/82 Pulse 82 Temp 36.8 C (98.3 F) (Oral) Resp 21 Ht 172.7 cm (5' 8 ) Wt 61.8 kg (136 lb 3.9 oz) LMP 04/01/2023 SpO2 100% BMI 20.72 kg/m Physical Exam Constitutional: Appearance: She is ill-appearing. Eyes: Extraocular Movements: Extraocular movements intact. Cardiovascular: Rate and Rhythm: Normal rate. Pulmonary: Effort: Pulmonary effort is normal. No respiratory distress. Neurological: Mental Status: She is alert and oriented to person, place, and time. Intake/Output: Intake/Output Summary (Last 24 hours) at 07/03/2023 1345 Last data filed at 07/03/2023 1300 Gross per 24 hour Intake 5922.75 ml Output 4080 ml Net 1842.75 ml Recent Labs: Results from last 7 days Lab Units 07/03/23 0410 07/02/23 1705 WBC X10E9/L 12.4* 19.2* HEMOGLOBIN g/dL 10.8* 11.5* HEMATOCRIT % 33.7* 36.5 PLATELETS X10E9/L 231 261 Results from last 7 days Lab Units 07/03/23 0842 07/03/23 0410 07/02/23 2110 07/02/23 1705 SODIUM mmol/L 139 139 < > 141 POTASSIUM mmol/L 3.0* 3.7 < > 4.6 CHLORIDE mmol/L 116* 117* < > 116* CO2 mmol/L 15* 12* < > 5* BUN mg/dL -- 8 -- 16 CREATININE mg/dL -- 0.53 -- 0.71 CALCIUM mg/dL -- 6.6* -- 7.0* < > = values in this interval not displayed. Results from last 7 days Lab Units 07/03/23 0410 07/02/23 1705 ALBUMIN g/dL 3.4 4.0 Last HbA1c: Lab Results Component Value Date HGBA1C 15.5 (H) 07/02/2023 HGBA1C >16.5 (H) 06/07/2021 Catrina Longo PA-C 07/03/23 3974 documented in this encounter [facility] 07-03-2023 Plan of care note Problem: Pain Goal: Patient goal is pain score less than 4, able to rest, and participant in treatment plan as appropriate Description: INTERVENTIONS: 1. Encourage patient or legal surgical sales representative to report early pain and ask for pain medicine when needed 2. Assess pain using appropriate pain scale and include the scale used when documenting 3. Administer analgesics based on type and severity of pain and evaluate response within appropriate time frame 4. Implement non-pharmacological measures as appropriate and evaluate response 5. Consider cultural and social influences on pain and pain management 6. Notify LIP if interventions ineffective or patient reports new pain 7. Monitor vital signs including pulse ox, end-tidal CO2 based on pain intervention 8. Reassess pain per policy 9. Teach patient or legal surgical sales representative interventions for comforting Outcome: Progressing Note: Evaluation of progress towards goal: Vital signs stable. Adult verbal pain score of 0. Will continue to monitor and assess. Problem: Safety Goal: Patient will be injury free during hospitalization Description: INTERVENTIONS: 1. Assess patient's risk for falls and implement fall prevention plan of care per policy 2. Provide and maintain a safe environment 3. Proper use of double Identifiers 4. Medication administration using the 5 rights 5. Hand hygiene 6. Specimens are labeled at the bedside 7. Instruct patient/ patient surgical sales representative about use of safety devices 8. Include patient/ patient surgical sales representative in decisions related to safety Outcome: Progressing Note: Evaluation of progress towards goal: Pt shows no signs of injury at this time. Will continue to monitor. Problem: Infection Goal: Absence of infection during hospitalization Description: Interventions: 1. Assess and monitor for signs and symptoms of infection 2. Monitor lab/diagnostic results 3. Monitor all insertion sites i.e., indwelling lines, tubes and drains 4. Monitor endotracheal (as able) and nasal secretions for changes in amount and color 5. Administer medications as ordered 6. Instruct and encourage patient and family to use good hand hygiene technique 7. Identify and instruct patient/patient surgical sales representative in use of appropriate isolation precautions for identified infection/symptoms 8. Provide and discuss with patient/patient surgical sales representative on educational MDRO sheet 9. Encourage and monitor nutritional status daily and consult docent coordinator if indicated 10. Implement neutropenic guidelines as needed 11. Review exposure to history of communicable disease and recent travel history on admission 12. Encourage annual influenza vaccine 13. Encourage pneumonia vaccine Outcome: Progressing Note: Evaluation of progress towards goal: Pt is afebrile at this time. CBC being monitored Problem: Knowledge Deficit Goal: Patient/patient surgical sales representative demonstrates understanding of disease process, treatment plan, medications, and discharge instructions Description: INTERVENTIONS 1. Complete learning assessment and assess knowledge base 2. Provide teaching at level of understanding 3. Provide teaching via preferred learning method(s) Outcome: Progressing Note: Evaluation of progress towards goal: Pt. verbalizes understanding of treatment and current medications. Will continue to reinforce in preparation for discharge. Problem: Discharge Planning Goal: Discharge to post-acute care, other facility, or home with appropriate resources Description: Patient's goal is: INTERVENTIONS 1. Conduct assessment to determine patient/family and health care team treatment goals, and need for post-acute services based on payer coverage, community resources, and patient preferences, and barriers to discharge 2. Coordinate with Social work, Care Navigation, and Utilization Review to arrange appropriate level of services according to patient's needs based on patient preference and payer coverage in collaboration with the physician and health care team 3. Address psychosocial, clinical, and financial barriers to discharge as identified in assessment in conjunction with the patient/family and health care team 4. Consult appropriate ancillary services (i.e.. PT/OT/ST, etc) as needed 5. Communicate with and update the patient/family, physician, and health care team regarding progress on the discharge plan 6. Identify discharge learning needs (meds, wound care, etc). 7. Arrange for needed discharge transportation as appropriate Outcome: Progressing Note: Evaluation of progress towards goal: Discharge plan is continuing to be discussed. Problem: Moderate - High Risk Fall Score Description: German Fall Score of =/> 25 or indicated by [facility] Assessment Goal: Patient should be free from fall Description: Interventions: 1. Omega to environment 2. Hourly rounds addressing the 4 P's (Pain, Positioning, Possessions, Potty) 3. Clear area of hazards (spills, clutter, electrical cords, unnecessary equipment) 4. Place equipment (bed & TV controls, call light, phone, urinal) within reach 5. Encourage patient to wear glasses and hearing aides as appropriate 6. Maintain bed in lowest position 7. Lock wheels on bed/wheelchair 8. Provide adequate lighting, including night light 9. Assess need for additional bedding, food/fluids, pain med's prior to sleep/routinely 10. Provide gripper slippers or personal non-skid footwear 11. Teach patient and patient surgical sales representative to maintain environment for safety and engage in all aspects of fall prevention program 12. Remind patient to call for help before getting out of bed 13. Initiate bed/chair/exit alarms supportive devices as appropriate, (chair wedge, no-skid floor mat, raised edge mattress, hip protectors) 14. Locate patient bed assignment for optimal visualization 15. Evaluate and identify Safe Patient Handling Equipment needs 16. Provide supervision when out of bed or chair 17. Utilize gait belt as needed to assist with ambulation 18. Place adaptive equipment (cane, walker) within reach 19. Request patient surgical sales representative bring adaptive equipment/mobility aids from home or obtain and provide as needed 20. Consult pharmacy regarding effects of med's affecting mobility, cognition, and alternatives 21. Obtain physician order for PT if risk factors associated with mobility are present 22. Obtain physician order for OT as appropriate 23. Utilize diversional activities 24. Educate patient and patient surgical sales representative how to maintain a safe environment during visitation times (notify nurse prior to leaving bedside) 25. Consider appropriateness of medical or non-medical director/head team physician 26. Set up voiding schedule as appropriate (every 2 hours) Outcome: Progressing Note: Evaluation of progress towards goal: Will continue to educated pt of process, plan, and medications. Bed is in the lowest position, wheels are locked, 3/4 side rails are up. Hourly rounding performed. Problem: Glucose Imbalance Goal: Clinical indication of glucose balance is achieved Description: Patient's goal is: INTERVENTIONS 1. Monitor blood glucose levels as ordered 2. Administer medications as ordered 3. Notify physician of ineffective treatment plan Outcome: Progressing Note: Evaluation of progress towards goal: Blood glucose levels are being monitored and insulin administered. Goal: Patient's discharge needs are met Description: Patient's goal is: INTERVENTIONS 1. Assess patient for self-management skills 2. Encourage participation in diabetes management 3. Identify potential discharge barriers on admission and throughout hospital stay 4. Involve patient/S.O. in discharge planning process 5. Communicate referral to extension service advisor as appropriate 6. Communicate referral to docent coordinator as appropriate 7. Collaborate with case management/licensed social worker for discharge needs Outcome: Progressing Note: Evaluation of progress towards goal: Pt. maintaining blood glucose within parameters and receiving insulin PRN for elevations. Endocrine following. Problem: Potential for Compromised Skin Integrity Goal: Skin integrity is maintained or improved Description: Patient's goal is: INTERVENTIONS 1. Perform initial skin assessment on admission and as needed 2. Turn patient every 2 hours and PRN 3. Relieve pressure to bony prominences 4. Avoid shearing 5. Keep skin clean and dry 6. Alternate a full bath with partial baths for elderly 7. Encourage use of lotion/moisturizer on skin 8. Monitor patient's hygiene practices 9. Float heels 10. Collaborate with interdisciplinary team and initiate plans and interventions as needed Outcome: Progressing Note: Evaluation of progress towards goal: Skin integrity is being maintained. Pt is being turned every two hours. Skin is clean and dry. Problem: Urinary Incontinence Goal: Perineal skin integrity is maintained or improved Description: INTERVENTIONS 1. Assess genitourinary system, perineal skin, labs (urinalysis), and history of incontinence to include past management, aggravating, and alleviating factors 2. Keep skin clean and dry 3. Apply skin protectant 4. Develop skin care regimen 5. Provide privacy when changing patients incontinence device to maintain their dignity 6. Consider placing an indwelling catheter 7. Collaborate with interdisciplinary team and initiate plans and interventions as needed Outcome: Progressing Note: Evaluation of progress towards goal: Car[place]o is in place. Skin is kept clean and dry. [facility] 07-02-2023 Plan of care note Problem: Pain Goal: Patient goal is pain score less than 4, able to rest, and participant in treatment plan as appropriate Description: INTERVENTIONS: 1. Encourage patient or legal surgical sales representative to report early pain and ask for pain medicine when needed 2. Assess pain using appropriate pain scale and include the scale used when documenting 3. Administer analgesics based on type and severity of pain and evaluate response within appropriate time frame 4. Implement non-pharmacological measures as appropriate and evaluate response 5. Consider cultural and social influences on pain and pain management 6. Notify LIP if interventions ineffective or patient reports new pain 7. Monitor vital signs including pulse ox, end-tidal CO2 based on pain intervention 8. Reassess pain per policy 9. Teach patient or legal surgical sales representative interventions for comforting Outcome: Progressing Note: Evaluation of progress towards goal: Patient is assessed every 4 hours for pain. Patients vitals are monitored and verbal needs are assessed. Problem: Safety Goal: Patient will be injury free during hospitalization Description: INTERVENTIONS: 1. Assess patient's risk for falls and implement fall prevention plan of care per policy 2. Provide and maintain a safe environment 3. Proper use of double Identifiers 4. Medication administration using the 5 rights 5. Hand hygiene 6. Specimens are labeled at the bedside 7. Instruct patient/ patient surgical sales representative about use of safety devices 8. Include patient/ patient surgical sales representative in decisions related to safety Outcome: Progressing Note: Evaluation of progress towards goal: Patient is free of injury at present time. Bed brakes locked and lowered. Call light in reach and frequent rounding to ensure safety. Problem: Infection Goal: Absence of infection during hospitalization Description: Interventions: 1. Assess and monitor for signs and symptoms of infection 2. Monitor lab/diagnostic results 3. Monitor all insertion sites i.e., indwelling lines, tubes and drains 4. Monitor endotracheal (as able) and nasal secretions for changes in amount and color 5. Administer medications as ordered 6. Instruct and encourage patient and family to use good hand hygiene technique 7. Identify and instruct patient/patient surgical sales representative in use of appropriate isolation precautions for identified infection/symptoms 8. Provide and discuss with patient/patient surgical sales representative on educational MDRO sheet 9. Encourage and monitor nutritional status daily and consult docent coordinator if indicated 10. Implement neutropenic guidelines as needed 11. Review exposure to history of communicable disease and recent travel history on admission 12. Encourage annual influenza vaccine 13. Encourage pneumonia vaccine Outcome: Progressing Note: Evaluation of progress towards goal: Patient is afebrile at present time. Will monitor labs and vital signs. Problem: Knowledge Deficit Goal: Patient/patient surgical sales representative demonstrates understanding of disease process, treatment plan, medications, and discharge instructions Description: INTERVENTIONS 1. Complete learning assessment and assess knowledge base 2. Provide teaching at level of understanding 3. Provide teaching via preferred learning method(s) Outcome: Progressing Note: Evaluation of progress towards goal: Patient is updated on treatments and medications. Will continue to educate. Problem: Moderate - High Risk Fall Score Description: German Fall Score of =/> 25 or indicated by [facility] Assessment Goal: Patient should be free from fall Description: Interventions: 1. Omega to environment 2. Hourly rounds addressing the 4 P's (Pain, Positioning, Possessions, Potty) 3. Clear area of hazards (spills, clutter, electrical cords, unnecessary equipment) 4. Place equipment (bed & TV controls, call light, phone, urinal) within reach 5. Encourage patient to wear glasses and hearing aides as appropriate 6. Maintain bed in lowest position 7. Lock wheels on bed/wheelchair 8. Provide adequate lighting, including night light 9. Assess need for additional bedding, food/fluids, pain med's prior to sleep/routinely 10. Provide gripper slippers or personal non-skid footwear 11. Teach patient and patient surgical sales representative to maintain environment for safety and engage in all aspects of fall prevention program 12. Remind patient to call for help before getting out of bed 13. Initiate bed/chair/exit alarms supportive devices as appropriate, (chair wedge, no-skid floor mat, raised edge mattress, hip protectors) 14. Locate patient bed assignment for optimal visualization 15. Evaluate and identify Safe Patient Handling Equipment needs 16. Provide supervision when out of bed or chair 17. Utilize gait belt as needed to assist with ambulation 18. Place adaptive equipment (cane, walker) within reach 19. Request patient surgical sales representative bring adaptive equipment/mobility aids from home or obtain and provide as needed 20. Consult pharmacy regarding effects of med's affecting mobility, cognition, and alternatives 21. Obtain physician order for PT if risk factors associated with mobility are present 22. Obtain physician order for OT as appropriate 23. Utilize diversional activities 24. Educate patient and patient surgical sales representative how to maintain a safe environment during visitation times (notify nurse prior to leaving bedside) 25. Consider appropriateness of medical or non-medical director/head team physician 26. Set up voiding schedule as appropriate (every 2 hours) Outcome: Progressing Note: Evaluation of progress towards goal: Pt is free from falls at present time. Bed locked and lowered at current time. Call light in reach. ;; Problem: Potential for Compromised Skin Integrity Goal: Skin integrity is maintained or improved Description: Patient's goal is: INTERVENTIONS 1. Perform initial skin assessment on admission and as needed 2. Turn patient every 2 hours and PRN 3. Relieve pressure to bony prominences 4. Avoid shearing 5. Keep skin clean and dry 6. Alternate a full bath with partial baths for elderly 7. Encourage use of lotion/moisturizer on skin 8. Monitor patient's hygiene practices 9. Float heels 10. Collaborate with interdisciplinary team and initiate plans and interventions as needed Outcome: Progressing Note: Evaluation of progress towards goal: Patient has indwelling catheter to help with skin integrity. Will continue to monitor. Patient turned every 2 hours with pillow support. [facility] 07-02-2023 History and physical note Images from the original note were not included. Adult ICU History & Physical [facility] - [facility] 28 [facility] 1995 [id number] Date of Admission - 07/02/2023 4:55 PM Chief Complaint Altered mental status, nausea vomititng, symptomatic hyperglycemia History of Present Illness Douglas Cordova is a 28 y.o. female with a past medical history of uncontrolled T1DM d/t insulin noncompliance, numerous DKA exacerbations requiring multiple ICU admissions, diabetic neuropathy, psoriasis, adhd, hx of methamphetamine use, recent incarceration. Patient initially presented to [facility] 07/02 via EMS for altered mental status. Patient had last taken her insulin for T1DM sometime before . Was unable to get filled over the holidays. Upon arrival to OSH: WBC 15.7, HB 13.2, vbg ph 6.91, VBG PCO2 17.7, NA 134, K 3.9, CO2 6.2, AG 33.7, Glucose 461, lactate 1.2, High sensitivity trop 3532.8, NT-pro-B natriruretic pep 899. UA large ketonuria, glucosuria. negative for infection. Drug screen positive for methadone. Flu, Covid negative. Patient given 2L bolus NS along with insulin infusion NS KCL 40meq 250cc/hr. Failed to improve requiring transfer to [facility] for higher acuity care in ICU. Upon arrival to [facility] ICU Patient 35.6, HR 101, RR 15 BP 116/83. Blood sugar 231. VBG PH 6.956/ PCO2 20.1/ HCO3 4.5/ O2 Sat 25%. Beta hydroxybutyrate Lactate . Patient intermittently drowsy. Responding to commands upon exam. EKG obtained which revealed new 1mm depression V4-V6. Continued on insulin infusion, Started on D5 1/2 NS with 40meq KCL at 250cc/hr. Past Medical History: Past Medical History: Diagnosis Date Anxiety Asthma Depression Diabetes mellitus type I ([facility]) DM type 1 (diabetes mellitus, type 1) ([facility]) Genital herpes GERD (gastroesophageal reflux disease) Herpes genitalis Psoriasis Visual impairment glasses Past Surgical History: Past Surgical History: Procedure Laterality Date SECTION 2 Home Medications: Prior to Admission medications Medication Sig Start Date End Date Taking? Authorizing Provider albuterol (PROVENTIL HFA;VENTOLIN HFA) 90 mcg/actuation inhaler Inhale 2 puffs every 6 (six) hours as needed for wheezing. Not In System Ref Prov amphetamine-dextroamphetamine XR (ADDERALL XR) 10 mg 24 hr capsule Take 3 capsules (30 mg total) by mouth every morning Indications: attention deficit disorder with hyperactivity. Max Daily Amount: 30 mg Not In System Ref Prov carisoprodoL (SOMA) 350 mg tablet Take 1 tablet (350 mg total) by mouth 4 (four) times a day as needed for muscle spasms Indications: muscle spasm. Not In System Ref Prov dextroamphetamine-amphetamine (ADDERALL) 30 mg tablet Take 30 mg by mouth daily. Not In System Ref Prov gabapentin (NEURONTIN) 800 mg tablet Take 800 mg by mouth 3 (three) times a day. Not In System Ref Prov hydrALAZINE (APRESOLINE) 25 mg tablet Take 2 tablets (50 mg total) by mouth every 12 (twelve) hours. Patient not taking: Reported on 06/10/2023 06/18/22 JOANNA Barker ibuprofen (MOTRIN) 800 mg tablet Take 1 tablet (800 mg total) by mouth 3 (three) times a day. 06/18/22 JOANNA Barker insulin lispro (HumaLOG) 100 unit/mL injection Take 2 units per 15 grams of carbohydrates up to 10 units per 75 grams of carbohydrates within 15 minutes of finishing meals together with correction insulin when needed. Patient taking differently: 1 ml (10 units) per carb 07/09/18 Maxine Baez MD ondansetron ODT (ZOFRAN ODT) 4 mg disintegrating tablet Dissolve 1 tablet (4 mg total) on tongue every 8 (eight) hours as needed for nausea or vomiting. 06/18/22 JOANNA Barker pantoprazole (PROTONIX) 20 mg EC tablet Take 30 mg by mouth in the morning. Not In System Ref Prov tiZANidine (ZANAFLEX) 4 mg tablet Take 1 tablet (4 mg total) by mouth every 8 (eight) hours as needed for muscle spasms. Not In System Ref Prov Allergies: Penicillins, Shellfish containing products, and Shellfish derived Social History: reports that she has been smoking. She has never used smokeless tobacco. She reports that she does not currently use drugs after having used the following drugs: Methamphetamines. She reports that she does not drink alcohol. Family History: Family History Problem Relation Age of Onset Multiple sclerosis Mother Psoriasis Mother Diabetes Mother Bladder dysfunction Mother Review of Systems: Review of Systems Constitutional: Negative for fever, chills and activity change. Respiratory: Positive for shortness of breath. Cardiovascular: Positive for tachycardia. Negative for leg swelling. Gastrointestinal: Positive for nausea and vomiting. Negative for abdominal pain, constipation and abdominal distention. Genitourinary: Positive for frequency. Negative for dysuria and difficulty urinating. Musculoskeletal: Positive for myalgias. Skin: Positive for rash. Neurological: Negative for seizures and syncope. Psychiatric/Behavioral: Negative for confusion. Physical Exam BP 116/83 Pulse 101 Temp (!) 35.6 C (96 F) (Axillary) Resp 15 Wt 61.8 kg (136 lb 3.9 oz) LMP 04/01/2023 SpO2 100% BMI 20.72 kg/m No intake or output data in the 24 hours ending 07/02/23 1726 Respiratory Source: No data recorded Admission weight: 61.8 kg (136 lb 3.9 oz) Physical Exam Constitutional: Appearance: She is ill-appearing and toxic-appearing. She is not diaphoretic. Eyes: Pupils: Pupils are equal, round, and reactive to light. Cardiovascular: Rate and Rhythm: Tachycardia present. Pulses: Normal pulses. Heart sounds: Normal heart sounds. No murmur heard. No friction rub. No gallop. Pulmonary: Comments: Coarse breathing bilaterally Kussmaul respirations present Abdominal: General: Abdomen is flat. There is no distension. Palpations: Abdomen is soft. Tenderness: There is no abdominal tenderness. There is no guarding. Musculoskeletal: General: No deformity. Right lower leg: No edema. Left lower leg: No edema. Skin: General: Skin is warm and dry. Findings: Rash present. Comments: Rash present along back, bilateral extremities. Round, flat, erythematous measuring around 2cm. Has hx psoriasis . Neurological: Mental Status: She is alert. She is disoriented. Comments: AOX4. Tired. Labs/Imaging No results found for this or any previous visit (from the past 24 hour(s)). No results found. Microbiology Results No results found for the last 168 hours. ASSESSMENT DKA in T1DM secondary to severe insulin noncompliance. High anion gap acidosis secondary to above Reactive leukocytosis secondary to DKA. Denies fevers, infectious symptoms. UA reassuring against infection. Troponin elevation secondary to increased demand. New 1mm ST depression present on V4-V6 compared to prior EKG in 2020 QTC 554- patient positive for methadone on UDS which can cause prolongation. Mg pending. PLAN Continue insulin infusion per DKA protocol. Hold drip for K<3.3 Continue D5 1/2 NS 40MEQ 250CC/hr. Maintain D5 while Gluc <250 Electrolyte panel Q4 hr, Phos Q4 hr, Betahydroybutyrate q8 PICC consultation d/t failed peripheral US guided IV access Endocrinology consulted regarding DKA Trend trops q6hx3 Repeat EKG in morning. Aggressive electrolyte repletion given QTC prolongation Avoid QTC prolonging medications Last VB.956/CO2 20.1/ HCO3 4.5/25% sat Fluids: D5 .045% NS 40meq KCL 250CC/hr Pressor support: none Lines (location & placement): R peripheral IV Carballo/PEG/Drains: none DVT prophylaxis: none GI prophylaxis: holding d/t QTC Wounds: Diet: npo except meds/icechips Code Status: FULL This progress note was completed using a voice transplanter system. Every effort was made to ensure accuracy. However, inadvertent computerized transplanter errors may be present. Ronal Logan MD PGY1 IM Resident [facility] 07/02/23 5:26 PM Associated attestation - Letty Yee MD - 07/03/2023 9:04 PM EST I have seen and examined the patient on rounds with the resident/fellow. I repeated the brown components of the exam. I confirm the note and agree with the assessment and plan except as stated below: Letty Yee MD [facility] Critical Care Medicine [facility] 07-02-2023 History and physical note Images from the original note were not included. Adult ICU History & Physical Patient - [facility] Cord[facility] Age - 28 [facility] 1995 [id number] Date of Admission - 07/02/2023 4:55 PM Chief Complaint Altered mental status, nausea vomititng, symptomatic hyperglycemia History of Present Illness Douglas Cordova is a 28 y.o. female with a past medical history of uncontrolled T1DM d/t insulin noncompliance, numerous DKA exacerbations requiring multiple ICU admissions, diabetic neuropathy, psoriasis, adhd, hx of methamphetamine use, recent incarceration. Patient initially presented to [facility] 07/02 via EMS for altered mental status. Patient had last taken her insulin for T1DM sometime before . Was unable to get filled over the holidays. Upon arrival to OSH: WBC 15.7, HB 13.2, vbg ph 6.91, VBG PCO2 17.7, NA 134, K 3.9, CO2 6.2, AG 33.7, Glucose 461, lactate 1.2, High sensitivity trop 3532.8, NT-pro-B natriruretic pep 899. UA large ketonuria, glucosuria. negative for infection. Drug screen positive for methadone. Flu, Covid negative. Patient given 2L bolus NS along with insulin infusion NS KCL 40meq 250cc/hr. Failed to improve requiring transfer to [facility] for higher acuity care in ICU. Upon arrival to [facility] ICU Patient 35.6, HR 101, RR 15 BP 116/83. Blood sugar 231. VBG PH 6.956/ PCO2 20.1/ HCO3 4.5/ O2 Sat 25%. Beta hydroxybutyrate Lactate . Patient intermittently drowsy. Responding to commands upon exam. EKG obtained which revealed new 1mm depression V4-V6. Continued on insulin infusion, Started on D5 1/2 NS with 40meq KCL at 250cc/hr. Past Medical History: Past Medical History: Diagnosis Date Anxiety Asthma Depression Diabetes mellitus type I ([facility]) DM type 1 (diabetes mellitus, type 1) ([facility]) Genital herpes GERD (gastroesophageal reflux disease) Herpes genitalis Psoriasis Visual impairment glasses Past Surgical History: Past Surgical History: Procedure Laterality Date SECTION 2 Home Medications: Prior to Admission medications Medication Sig Start Date End Date Taking? Authorizing Provider albuterol (PROVENTIL HFA;VENTOLIN HFA) 90 mcg/actuation inhaler Inhale 2 puffs every 6 (six) hours as needed for wheezing. Not In System Ref Prov amphetamine-dextroamphetamine XR (ADDERALL XR) 10 mg 24 hr capsule Take 3 capsules (30 mg total) by mouth every morning Indications: attention deficit disorder with hyperactivity. Max Daily Amount: 30 mg Not In System Ref Prov carisoprodoL (SOMA) 350 mg tablet Take 1 tablet (350 mg total) by mouth 4 (four) times a day as needed for muscle spasms Indications: muscle spasm. Not In System Ref Prov dextroamphetamine-amphetamine (ADDERALL) 30 mg tablet Take 30 mg by mouth daily. Not In System Ref Prov gabapentin (NEURONTIN) 800 mg tablet Take 800 mg by mouth 3 (three) times a day. Not In System Ref Prov hydrALAZINE (APRESOLINE) 25 mg tablet Take 2 tablets (50 mg total) by mouth every 12 (twelve) hours. Patient not taking: Reported on 06/10/2023 06/18/22 JOANNA Barker ibuprofen (MOTRIN) 800 mg tablet Take 1 tablet (800 mg total) by mouth 3 (three) times a day. 06/18/22 JOANNA Barker insulin lispro (HumaLOG) 100 unit/mL injection Take 2 units per 15 grams of carbohydrates up to 10 units per 75 grams of carbohydrates within 15 minutes of finishing meals together with correction insulin when needed. Patient taking differently: 1 ml (10 units) per carb 07/09/18 Maxine Baez MD ondansetron ODT (ZOFRAN ODT) 4 mg disintegrating tablet Dissolve 1 tablet (4 mg total) on tongue every 8 (eight) hours as needed for nausea or vomiting. 06/18/22 JOANNA Barker pantoprazole (PROTONIX) 20 mg EC tablet Take 30 mg by mouth in the morning. Not In System Ref Prov tiZANidine (ZANAFLEX) 4 mg tablet Take 1 tablet (4 mg total) by mouth every 8 (eight) hours as needed for muscle spasms. Not In System Ref Prov Allergies: Penicillins, Shellfish containing products, and Shellfish derived Social History: reports that she has been smoking. She has never used smokeless tobacco. She reports that she does not currently use drugs after having used the following drugs: Methamphetamines. She reports that she does not drink alcohol. Family History: Family History Problem Relation Age of Onset Multiple sclerosis Mother Psoriasis Mother Diabetes Mother Bladder dysfunction Mother Review of Systems: Review of Systems Constitutional: Negative for fever, chills and activity change. Respiratory: Positive for shortness of breath. Cardiovascular: Positive for tachycardia. Negative for leg swelling. Gastrointestinal: Positive for nausea and vomiting. Negative for abdominal pain, constipation and abdominal distention. Genitourinary: Positive for frequency. Negative for dysuria and difficulty urinating. Musculoskeletal: Positive for myalgias. Skin: Positive for rash. Neurological: Negative for seizures and syncope. Psychiatric/Behavioral: Negative for confusion. Physical Exam BP 116/83 Pulse 101 Temp (!) 35.6 C (96 F) (Axillary) Resp 15 Wt 61.8 kg (136 lb 3.9 oz) LMP 04/01/2023 SpO2 100% BMI 20.72 kg/m No intake or output data in the 24 hours ending 07/02/23 1726 Respiratory Source: No data recorded Admission weight: 61.8 kg (136 lb 3.9 oz) Physical Exam Constitutional: Appearance: She is ill-appearing and toxic-appearing. She is not diaphoretic. Eyes: Pupils: Pupils are equal, round, and reactive to light. Cardiovascular: Rate and Rhythm: Tachycardia present. Pulses: Normal pulses. Heart sounds: Normal heart sounds. No murmur heard. No friction rub. No gallop. Pulmonary: Comments: Coarse breathing bilaterally Kussmaul respirations present Abdominal: General: Abdomen is flat. There is no distension. Palpations: Abdomen is soft. Tenderness: There is no abdominal tenderness. There is no guarding. Musculoskeletal: General: No deformity. Right lower leg: No edema. Left lower leg: No edema. Skin: General: Skin is warm and dry. Findings: Rash present. Comments: Rash present along back, bilateral extremities. Round, flat, erythematous measuring around 2cm. Has hx psoriasis . Neurological: Mental Status: She is alert. She is disoriented. Comments: AOX4. Tired. Labs/Imaging No results found for this or any previous visit (from the past 24 hour(s)). No results found. Microbiology Results No results found for the last 168 hours. ASSESSMENT DKA in T1DM secondary to severe insulin noncompliance. High anion gap acidosis secondary to above Reactive leukocytosis secondary to DKA. Denies fevers, infectious symptoms. UA reassuring against infection. Troponin elevation secondary to increased demand. New 1mm ST depression present on V4-V6 compared to prior EKG in 2020 QTC 554- patient positive for methadone on UDS which can cause prolongation. Mg pending. PLAN Continue insulin infusion per DKA protocol. Hold drip for K<3.3 Continue D5 1/2 NS 40MEQ 250CC/hr. Maintain D5 while Gluc <250 Electrolyte panel Q4 hr, Phos Q4 hr, Betahydroybutyrate q8 PICC consultation d/t failed peripheral US guided IV access Endocrinology consulted regarding DKA Trend trops q6hx3 Repeat EKG in morning. Aggressive electrolyte repletion given QTC prolongation Avoid QTC prolonging medications Last VB.956/CO2 20.1/ HCO3 4.5/25% sat Fluids: D5 .045% NS 40meq KCL 250CC/hr Pressor support: none Lines (location & placement): R peripheral IV Carballo/PEG/Drains: none DVT prophylaxis: none GI prophylaxis: holding d/t QTC Wounds: Diet: npo except meds/icechips Code Status: FULL This progress note was completed using a voice transplanter system. Every effort was made to ensure accuracy. However, inadvertent computerized transplanter errors may be present. Ronal Logan MD PGY1 IM Resident [facility] 07/02/23 5:26 PM Associated attestation - Letty Yee MD - 07/03/2023 9:04 PM EST I have seen and examined the patient on rounds with the resident/fellow. I repeated the brown components of the exam. I confirm the note and agree with the assessment and plan except as stated below: Letty Yee MD [facility] Critical [facility] Medicine documented in this encounter [facility] 06-16-2023 Note [id number] Note Education Materials Endocrinology Hyperglycemia Hyperglycemia is when the sugar (glucose) level in your blood is too high. High blood sugar can happen to people who have or do not have diabetes. High blood sugar can happen quickly. It can be an emergency. What are the causes? If you have diabetes, high blood sugar may be caused by: ? Medicines that increase blood sugar or affect your control of diabetes. ? Getting less physical activity. ? Overeating. ? Being sick or injured or having an infection. ? Having surgery. ? Stress. ? Not giving yourself enough insulin (if you are taking it). You may have high blood sugar because you have diabetes that has not been diagnosed yet. If you do not have diabetes, high blood sugar may be caused by: ? Certain medicines. ? Stress. ? A bad illness. ? An infection. ? Having surgery. ? Diseases of the pancreas. What increases the risk? This condition is more likely to develop in people who have risk factors for diabetes, such as: ? Having a family member with diabetes. ? Certain conditions in which the body's defense system (immune system) attacks itself. These are called autoimmune disorders. ? Being overweight. ? Not being active. ? Having a condition called insulin resistance. ? Having a history of: ? Prediabetes. ? Diabetes when . ? Polycystic ovarian syndrome (PCOS). What are the signs or symptoms? This condition may not cause symptoms. If you do have symptoms, they may include: ? Feeling more thirsty than normal. ? Needing to pee (urinate) more often than normal. ? Hunger. ? Feeling very tired. ? Blurry eyesight (vision). You may get other symptoms as the condition gets worse, such as: ? Dry mouth. ? Pain in your belly (abdomen). ? Not being hungry (loss of appetite). ? Breath that smells fruity. ? Weakness. ? Weight loss that is not planned. ? A tingling or numb feeling in your hands or feet. ? A headache. ? Cuts or bruises that heal slowly. How is this treated? Treatment depends on the cause of your condition. Treatment may include: ? Taking medicine to control your blood sugar levels. ? Changing your medicine or dosage if you take insulin or other diabetes medicines. ? Lifestyle changes. These may include: ? Exercising more. ? Eating healthier foods. ? Losing weight. ? Treating an illness or infection. ? Checking your blood sugar more often. ? Stopping or reducing steroid medicines. If your condition gets very bad, you will need to be treated in the hospital. Follow these instructions at home: General instructions ? Take [id number] and prescription medicines only as told by your doctor. ? Do not smoke or use any products that contain nicotine or tobacco. If you need help quitting, ask your doctor. ? If you drink alcohol: ? Limit how much you have to: ? 0?1 drink a day for women who are not . ? 0?2 drinks a day for men. ? Know how much alcohol is in a drink. In the [place] one drink equals one 12 oz bottle of beer (355 mL), one 5 oz glass of wine (148 mL), or one 1? oz glass of hard liquor (44 mL). ? Manage stress. If you need help with this, ask your doctor. ? Do exercises as told by your doctor. ? Keep all follow-up visits. Eating and drinking ? Stay at a healthy weight. ? Make sure you drink enough fluid when you: ? Exercise. ? Get sick. ? Are in hot temperatures. ? Drink enough fluid to keep your pee (urine) pale yellow. If you have diabetes: ? Know the symptoms of high blood sugar. ? Follow your diabetes management plan as told by your doctor. Make sure you: ? Take insulin and medicines as told. ? Follow your exercise plan. ? Follow your meal plan. Eat on time. Do not skip meals. ? Check your blood sugar as often as told. Make sure you check before and after exercise. If you exercise longer or in a different way, check your blood sugar more often. ? Follow your sick day plan whenever you cannot eat or drink normally. Make this plan ahead of time with your doctor. ? Share your diabetes management plan with people in your workplace, school, and household. ? Check your pee for ketones when you are ill and as told by your doctor. ? Carry a card or wear jewelry that says that you have diabetes. Where to find more information [place] [employer]: www.diabetes.org Contact a doctor if: ? Your blood sugar level is at or above 240 mg/dL (13.3 mmol/L) for 2 days in a row. ? You have problems keeping your blood sugar in your target range. ? You have high blood pressure often. ? You have signs of illness, such as: ? Feeling like you may vomit (feeling nauseous). ? Vomiting. ? A fever. Get help right away if: ? Your blood sugar monitor reads high even when you are taking insulin. ? You have trouble breathing. ? You have a change in how you think, feel, or act (ment (more content not included)... [facility] Evaluation note Diagnosis DKA (diabetic ketoacidosis) ([facility] Primary Type II or unspecified type diabetes mellitus with ketoacidosis, not stated as uncontrolled Diabetic ketoacidosis without coma associated with type 1 diabetes mellitus ([facility]) Type 1 diabetes mellitus with ketoacidosis without coma (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 Advance Directives and Livin g Will 06/07/2020 12:33 PM Latest Code Status on File Code Status Date Activated Date Inactivated Comments Full Code 06/07/2020 11:23 AM 06/10/2020 7:35 PM Full Code 06/07/2020 11:21 AM 06/07/2020 11:23 AM Latest Code Status on File Code Status Date Activated Date Inactivated Comments Full Code 07/29/2020 6:56 PM Documents on File Type Date Recorded 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 Advance Directives and Livin g Will 06/07/2020 12:33 PM Latest Code Status on File Code Status Date Activated Date Inactivated Comments Full Code 06/07/2020 11:23 AM 06/10/2020 7:35 PM Full Code 06/07/2020 11:21 AM 06/07/2020 11:23 AM Latest Code Status on File Code Status Date Activated Date Inactivated Comments Full Code 07/02/2023 5:29 PM 07/04/2023 4:33 PM Code Status History Code Status Date Activated Date Inactivated Comments Full Code 06/16/2022 1:04 AM 06/18/2022 2:04 PM Full Code 09/07/2021 7:45 AM 09/07/2021 4:29 PM Full Code 06/18/2021 4:08 AM 06/20/2021 3:23 PM Full Code 06/08/2021 5:12 PM 06/12/2021 3:41 PM Hospital Course * Cam Wasserman MD - 06/10/2020 1:20 PM EST HOSPITALIST DISCHARGE SUMMARY Patient: Douglas Cordova Account: [id number] Admitted: 06/07/2020 Discharge Date/Time: 06/10/2020 Clinical Summary REASON FOR HOSPITALIZATION/HPI: Douglas Cordova is a 25 y.o. female patient of No primary care provider on file. with history of DM1 presented with hyperglycemia. DIAGNOSES: DKA from [facility], non compliance with her home insulin -DKA pathway initiated. -Resolved -Transition to Lantus, and Humalog -A1c1 7.8 -Patient seen by extension service advisor -Stable for discharge home although her sugars are high but she eats some adamantly requesting to go home otherwise she would lose her job, and her family situation. -Says she knows what to do and she promised that she would be compliant with her diabetes medications going forward. Atelectasis CXR reviewed Improved with pulmonary toilet, incentive spirometer HypoPO4 Replaced HypoK replaced Microcytosis Iron low Hgb is normal. Underweight/ cachexia Encourage to eat once tolerated Gastroenteritis, resolved. Leuckocytosis Resolved-most likely reactive Consultations: None Procedures: None Disposition: Home Follow-up: 1. PCP- 1 week; Routine post hospital f/u PCP Handoff Recommended Outpatient Testing: Needs better compliance with medication, dietary regimen Results Pending At Discharge: None Lab Results Component Value Date GLUCOSE 267 (H) 06/10/2020 CALCIUM 8.4 06/10/2020 NA 140 06/10/2020 K 3.9 06/10/2020 CL 111 (H) 06/10/2020 BUN 9 06/10/2020 CREATININE 0.56 06/10/2020 Lab Results Component Value Date WBC 6.01 06/09/2020 HGB 11.8 (L) 06/09/2020 HCT 34.1 (L) 06/09/2020 MCV 78.0 (L) 06/09/2020 PLT 255 06/09/2020 XR Chest 1 View Final Result 1. Questionable patchy vague densities in the right lower lobe distribution which could be a nonspecific finding however atypical bacterial or viral pneumonia would be difficult to exclude. 2. No acute process otherwise or pleural effusions. [employer] Workstation ID: [id number] Procedures No orders of the defined types were placed in this encounter. Consults Procedures Inpatient consult to Pharmacist Per Diem Inpatient consult to Dietitian Inpatient consult to Care Management Other Tests No orders of the defined types were placed in this encounter. Allergies Penicillins and Shellfish derived Discharge Diet Diet Special; Diabetic; Carbohydrate Consistent 60g/meal ([id number] kCal equivalent) Disposition Discharge Medications Medication List START taking these medications insulin glargine 100 unit/mL injection Commonly known as: LANTUS Inject 20 (twenty) Units under the skin 2 (two) times a day . insulin lispro 100 unit/mL injection Commonly known as: HumaLOG Inject 0 (zero) Units to 30 (thirty) Units under the skin 3 (three) times a day before meals . CONTINUE taking these medications albuterol 90 mcg/actuation inhaler * dextroamphetamine-amphetamine 30 MG 24 hr capsule Commonly known as: ADDERALL XR * dextroamphetamine-amphetamine 20 mg tablet Commonly known as: ADDERALL ondansetron 4 MG disintegrating tablet Commonly known as: ZOFRAN-ODT sertraline 100 MG tablet Commonly known as: ZOLOFT * This list has 2 medication(s) that are the same as other medications prescribed for you. Read thedirections carefully, and ask your doctor or other care provider to review them with you. Where to Get Your Medications These medications were sent to [facility] [address] - [address] [id number] insulin glargine 100 unit/mL injection insulin lispro 100 unit/mL injection Physician(s) Family: Physician No, Phone: None, Address: [facility] Follow Up: PCP Follow up in 3 day(s) Patient instructions, including activity, were given to the patient/family at discharge. Please seethe After Visit Summary in the medical record for details. Time spent on discharge: > 30 minutes Completed by: Cam Wasserman on 06/10/20, 1:20 PM documented in this encounter Discharge Instructions * Discharge Instr - IP RD* Lisa Moore, RD - 06/08/2020 3:09 PM EST Ms. Douglas Cordova will need to follow a Diabetic Diet when at home. The Diabetic Diet is a very healthy diet to follow but most importantly it helps to maintain good blood sugar control. To follow a this diet you must count all the carbohydrates you eat at each meal and snack. Carbohydrates are the complex sugars that affect blood sugar the most. They are found in foods suchas bread, cereal, baked goods, fruit, starchy vegetables etc. Eating consistent or equal amounts ofcarbohydrates at each meal every day will help keep your blood sugar within the normal range of 70-120 mg/dL. If you are eating 3 meals a day you should have 45-60 grams of carbohydrates at each mealor 135-180 grams of carbohydrates a day. If you like to have a snack between meals you can but makesure the snack is 0-15 grams of carbohydrates. You can find how many carbohydrates are in a food item by reading the Nutrition Facts Label on the packaging of the food item. Pay attention to the serving size of the food item because sometimes thepackaging may have more than one serving that what the Nutrition Fact values are indicating. Be sure to increase the carbohydrates you count if you are eating more than the recommended serving size or less than the recommended serving size so that you are getting the right amount of carbohydrates. The amount of carbohydrates in the serving size can be found by the bold header Total Carbohydrate . The Total Carbohydrate accounts for all carbohydrates and sugars that are present in the food item in the directed serving size. You only need to count the grams next to Total Carbohydrate , youdo not need to count any of the lines below such as total sugars or added sugars which are already included in the Total Carbohydrate category. Pairing carbohydrates with protein, fat, and fiber help slow the digestion of carbohydrates. Slowing the digestion of carbohydrates means they will not affect the blood sugar as rapidly as they wouldif they were eaten alone. This helps prevent sudden increases in blood sugar and helps to keep the blood sugar in the recommended parameters. If you have questions about following a Diabetic Diet please contact Central Scheduling at [phone] to set up an outpatient appointment with a Registered Dietitian. Please check out [place] [employer] at [email or web address] for more resources. * Attachments The following attachments cannot be sent through Care Everywhere. * Carbohydrates: General Info (Russian) * Diabetes: Counting Carbohydrates (Russian) * Low Carbohydrate Foods: General Info (Russian) * Diabetic Ketoacidosis (DKA) (Russian) documented in this encounter History of Present Illness * Liliane Frederick RN - 06/09/2020 6:29 PM EST New order placed for urinalysis. Prior sample, was dumped, and was unable to be collected. Patient educated, and new supplies placed in room. * Binh Virk MD - 06/09/2020 12:09 PM EST DAILY PROGRESS NOTE Douglas Cordova is a 25 y.o. female patient of No primary care provider on file. with history of DM1 presented with hyperglycemia. Impression and Plan: DKA from [facility], non compliance with her home insulin, resolved. Started on DKA pathway on admission with Insulin gtt + IVF Has Insulin pump in the past, was DC because of ?noncompliance She is doing much better, Off Insulin gtt 06/08 BS is >250's Inc Lantus + SS IVF AG is 10 A1c is 17.8 Monitor BREE lytes. Diet tolerating DC carballo Advised to follow up Atelectasis CXR reviewed IS Pular toilet Inc activity HypoPO4 Replacement ordered HypoK Replacement ordered. Microcytosis Iron low Hgb is normal. Underweight/ cachexia Encourage to eat once tolerated Gastroenteritis, resolved. Leuckocytosis Monitor. Subjective Doing better No new complaint. Review of Systems: 10 complete systems were reviewed with in normal limit except above. Objective Vital Signs: BP 124/69 (BP Location: Left arm, Patient Position: Sitting) Pulse (!) 46 Temp 98.2 F (36.8 C) (Oral) Resp 12 Ht 5' 8 Wt 59.1 kg (130 lb 4.7 oz) SpO2 99% BMI 19.81 kg/m Physical Examination: General appearance: alert, thin and frail, cooperative, in no acute distress. - Haris Cardiovascular: regular rate and rhythm; normal S1, S2; no murmurs, rubs, clicks or gallops; No peripheral edema. Respiratory: lungs clear to auscultation; without wheezes, rales or rhonchi. Abdomen: soft, non-tender, non-distended; positive bowel sounds. CURRENT MEDICATIONS: enoxaparin (LOVENOX) injection 40 mg Subcutaneous Daily insulin glargine 20 Units Subcutaneous BID lispro insulin 0-15 Units Subcutaneous at bedtime insulin lispro 0-30 Units Subcutaneous TID AC pantoprazole 40 mg Oral Daily [AUG Hold] potassium chloride SA 40 mEq Oral BID [AUG Hold] sod phos di, mono-K phos mono 500 mg Oral BID sodium chloride (PF) 5 mL Intravenous Q8H KYARA Results/Medications Reviewed 06/09/20 12:10 PM: Results from last 7 days Lab Units 06/09/20 03206/08/20195806/08/20 1628 SODIUM mmol/L 137 132* 134* POTASSIUM mmol/L 3.2* 4.0 4.4 CHLORIDE mmol/L 110* 107 113* BUN mg/dL 6* 7* 7* CREATININE mg/dL 0.59 0.82 0.63 GLUCOSE mg/dL 239* 321* 105* CALCIUM mg/dL 8.5 8.7 8.8 Results from last 7 days Lab Units 06/09/20 0328 06/08/20 0352 06/07/20 1144 WBC K/mcL 6.01 9.44 15.56* HGB g/dL 11.8* 13.0 14.7 HCT % 34.1* 37.5 46.4* PLT K/mcL 255 293 302 Results from last 7 days Lab Units 06/09/20 0329 ALK PHOS U/L 68 BILIRUBIN TOTAL mg/dL 0.4 TOTAL PROTEIN g/dL 5.8* ALTR U/L 19 AST U/L 11 Invalid input(s): GLUCR, LEUKESUR CULTURES: Reviewed 12:10 PM IMAGING: Reviewed 12:10 PM * Liliane Frederick RN - 06/09/2020 11:29 AM EST Patient denies wanting nurse to update family at this time, due to she just updated her contact Mary at this time. Patient updated to let nurse know if she changes her mind. * Lisa Soares RN - 06/09/2020 9:49 AM EST 0745: Pt sitting up in bed. Breakfast given to her by dietary. Asked pt what her normal BG is and she said 400's. She doesn't always cover her BG when needed. Educated pt on importance of checking BGas ordered by her MD, covering when needed and trying to take better care of her self. Explaind that she could end up in kidney failure on dialysis at a young age, loose her vision or have her feet amputated at the worst case scenario. She stated she understood. Pt says she wears an insulin pump but would like to try something called a disk . This nurse is unsure of what pt is talking about. SS consulted to help with discharge needs and insulin. Dietary and optomechanical engineer has already been consulted. 0900: Spoke with Shu Barahona, extension service advisor and she is going in to speak with pt. 1005: Report called to nurse on 2N. 1015: Pt transferred to 2N via wheelchair. Shannon Boyle - 06/08/2020 2:02 PM EST Spiritual Care Progress Note Completed by: Shannon Parekh Person(s) Present During this Visit: Patient Time Spent in Direct Patient Care: 15 Narrative:I met Douglas today for this routine visit. She shared that she is embracing the quiet of the hospital, thankful that family are not able to come from [place], [place] to visit her due to the distance involved. She shared that his is a time of rest for her away from her two children who are 8 years old and 4 years old. Family is main source of support for her at this time. I shared words of encouragement and supportive listening presence. Pastoral Care team will remain available to support patient and family PRN. Patients Response to Pastoral Care: Appeared to be well-engaged Planning for Future Visits: Pt aware to contact Office Copy Selector as needed, PRN Visit 1-2 times every 7 days or consult Pastoral Care PRN. Rev. Shannon Parekh MDiv. Staff [facility] Contact * Binh Virk MD - 06/08/2020 9:36 AM EST DAILY PROGRESS NOTE Douglas Cordova is a 25 y.o. female patient of No primary care provider on file. with history of DM1 presented with hyperglycemia. Impression and Plan: DKA from [facility], non compliance with her home insulin, improving Started on DKA pathway. She is doing much better, less sick today. Cont Insulin gtt + IVF AG is 10 A1c is 17.8 Transition to subcutaneous Insulin Cont Insulin gtt for now. Monitor BMP, lytes. Hydroxybuterate, mildly elevated. Advance diet as tolerated. HypoPO4 Replacement ordered HypoK Replacement ordered. Microcytosis Iron low Underweight/ cachexia Encourage to eat once tolerated Gastroenteritis, resolved. Leuckocytosis Monitor. Subjective Doing better No new complaint. Review of Systems: 10 complete systems were reviewed with in normal limit except above. Objective Vital Signs: BP 129/86 Pulse 92 Temp 97.6 F (36.4 C) (Infrared) Resp 14 Ht 5' 8 Wt 59.1 kg (130 lb 4.7 oz) SpO2 100% BMI 19.81 kg/m Physical Examination: General appearance: alert, thin and frail, cooperative, in no acute distress. + Carballo Cardiovascular: regular rate and rhythm; normal S1, S2; no murmurs, rubs, clicks or gallops; No peripheral edema. Respiratory: lungs clear to auscultation; without wheezes, rales or rhonchi. Abdomen: soft, non-tender, non-distended; positive bowel sounds. CURRENT MEDICATIONS: enoxaparin (LOVENOX) injection 40 mg Subcutaneous Daily pantoprazole 40 mg Oral Daily potassium chloride 20 mEq Intravenous Q1H if indicated in MAR calculator potassium phosphate IVPB 30 mmol Intravenous Once sod phos di, mono-K phos mono 500 mg Oral BID sodium chloride (PF) 5 mL Intravenous Q8H KYARA Results/Medications Reviewed 06/08/20 9:37 AM: Results from last 7 days Lab Units 06/08/20 0813 06/08/20 0352 06/07/20 2354 SODIUM mmol/L 135 137 138 POTASSIUM mmol/L 3.6 3.7 3.3* CHLORIDE mmol/L 112* 115* 115* BUN mg/dL 9 9 8 CREATININE mg/dL 0.65 0.56 0.64 GLUCOSE mg/dL 255* 100* 124* CALCIUM mg/dL 8.5 8.7 8.4 Results from last 7 days Lab Units 06/08/20 0352 06/07/20 1144 WBC K/mcL 9.44 15.56* HGB g/dL 13.0 14.7 HCT % 37.5 46.4* PLT K/mcL 293 302 Results from last 7 days Lab Units 06/08/20 0813 ALK PHOS U/L 68 BILIRUBIN TOTAL mg/dL 0.2 TOTAL PROTEIN g/dL 5.8* ALTR U/L 20 AST U/L 17 Invalid input(s): GLUCR, LEUKESUR CULTURES: Reviewed 9:37 AM IMAGING: Reviewed 9:37 AM * Usha Parks RN - 06/07/2020 1:44 PM EST 1349 Patient moaning in pain and complaining of being hot after eating a full liquid lunch. zofran given with lunch. Patient is not a good historian or does not offer much information when asked. Per report from [facility] in [place] stated patient stopped taking her insulin 3 weeks ago and came to the hospital withflank pain. She is also known to their hospital for frequent admissions. Patient did not wish to have any family called upon her admission, but stated her grandma could have information if anyone called. She stated that her mom keeps calling her and she does not want to give her any information. She is a mom of two little boys, ages 4 and 8. documented in this encounter* Felicity Jin RN - 08/02/2020 12:[address] Olivarez notified with IM team patient did elope and leave hospital with PIV still place. * Felicity Jin RN - 08/02/2020 12:31 AM EST Email Deployment Specialist perfect serve message Internal Medicine to notify primary did elope and leave hospital. Alsonotified patient did leave jewelry in room and will send to security. * Felicity Jin RN - 08/01/2020 10:25 PM EST Email Deployment Specialist called [employer] Pamela to notify patient left unit at 2030 and has not return. Patient did sign policy on patient's remaining of unit form. Also notified patient did state to specifications writer shewas not leaving AMA. Patient's jewelry still present in room. Pamela states to wait till midnight to remove patient off unit. * Felicity Jin RN - 08/01/2020 8:30 PM EST Patient requested to walk off the unit.. Email Deployment Specialist notified patient policy on patients remaining on unit. Patient states she is not leaving AMA and does disregard warnings against leaving the unit. Patient did sign policy on patient's remaining on their unit form and witness by specifications writer and place in alexander ent's chart. * Damien Olivarez MD - 08/01/2020 7:06 PM EST [facility] Department of Internal Medicine - Staff Internal Medicine Service ICU PATIENT TRANSFER NOTE Patient: Douglas Sousa Date of : 1995 Acct: [id number] Admit date: 07/29/2020 Code Status:- Full code Reason for ICU Admission:- Altered mental status SUPPORT DEVICES: [] Ventilator [] BIPAP [] Nasal Cannula [x] Room Air Consultations:- [] Cardiology [] Nephrology [] Hemo onco [] GI [] ID [] ENT [] Rheum [] Endo []Physiotherapy Others:- NUTRITION: [] NPO [] Tube Feeding (Specify: ) [] TPN [x] PO Central Lines:- [x] No [] Yes If yes - Days/Date of Insertion. Pt seen,examined and Chart reviewed. ICU COURSE: The patient is a 25 y.o. female with past medical history significant for DM type I who was initially admitted on 07/29/2020 with DKA, type 1, not at goal (HCC) [E10.10] and presented to [facility] with C/O abdominal pain, nausea and vomiting and was found to be in DKA. Patient was started on DKA protocol, on IV fluids and received 1 dose of Rocephin and azithromycin due to elevated white count. Patient was transferred to [facility] for further evaluation and management. In the ICU patient was on IV fluid with bicarb, not on insulin drip, hemodynamically stable with blood pressure 128/86, HR 90s. She was tachypneic with respiratory rate 30-35/minute. Initial ABG revealed pH 6.864, PCO2 24.6, bicarb 4.2. Patient was started on DKA protocol with insulin drip and IV fluid half-normal saline at 250 cc/hour as her sodium was 137, blood glucose 363. Blood glucose continue to improve, ABG worsened and the patient was started on bicarb with sterile water 75 mEq in 500 cc over 2 hours. She also received 3 amp of bicarb. Patient was placed on BiPAP for respiratory support. Patient continued to be tachypneic repeat ABG revealed pH 7.02, PCO2 14.4, bicarb 4.3. Patient had serial ABGs to assess respiratory fatigue, which showed improvement. Last ABG showed pH 7.402, PCO2 20.8, bicarb 12.9. Patient is more awake, alert following commands and answering questions Currently, patient is on ceftriaxone day 3 as UA shows small leukocyte esterase concerning for UTI and there were some concerns about aspiration pneumonia on chest x-ray. Blood cultures negative. Patient is currently alert, awake and oriented. Threatens to leave AMA if she does not get food of her choice. On my evaluation patient was walking in the hallway, alert oriented. Upon questioning she reported that her insulin pump ran out of insulin and that led to DKA. She also mentioned that this has happened multiple times in the past. On further evaluation, patient appeared sad and was tearful. She mentioned that she has history of depression and was on antidepressants which she stopped taking by herself after her left her. Patient has 2 kids who live with patient's mother and grandmother. Patient was counseled regarding medication compliance including insulin and antidepressants. Physical Exam: Vitals: BP (!) 156/104 Pulse 66 Temp 97.7 F (36.5 C) (Oral) Resp 20 Ht 5' 4 (1.626 m) Wt130 lb (59 kg) SpO2 92% BMI 22.31 kg/m 24 hour intake/output: Intake/Output Summary (Last 24 hours) at 08/01/2020 1906 Last data filed at 08/01/2020 1240 Gross per 24 hour Intake 3964 ml Output 1750 ml Net 2214 ml Last 3 weights: Wt Readings from Last 3 Encounters: 08/01/20 130 lb (59 kg) General appearance - alert, patient tearful and sad. Mental status - alert, oriented to person, place, and time Eyes - pupils equal and reactive, extraocular eye movements intact Mouth - mucous membranes moist, pharynx normal without lesions Neck - supple, no significant adenopathy Chest - clear to auscultation, no wheezes Heart - normal rate, regular rhythm, normal S1, S2 Abdomen - soft, nontender, nondistended Neurological - alert, oriented, normal speech, no focal deficits Extremities - peripheral pulses normal, no pedal edema Skin - normal coloration and turgor, no rashes Medications:Current Inpatient Scheduled Meds: insulin lispro 0-12 Units Subcutaneous TID WC insulin lispro 0-6 Units Subcutaneous Nightly insulin glargine 20 Units Subcutaneous BID insulin lispro 3 Units Subcutaneous TID WC enoxaparin 40 mg Subcutaneous Daily Continuous Infusions: dextrose sodium chloride Stopped (08/01/20 1707) PRN Meds:melatonin, prochlorperazine, glucose, dextrose, glucagon (rDNA), dextrose, potassium chloride, magnesium sulfate Objective: CBC: Recent Labs 07/29/20 1918 07/30/20 1014 08/01/20 1128 WBC 28.5* 13.9* 6.5 HGB 14.0 12.9 10.0* PLT 346 228 130* BMP: Recent Labs 08/01/20 0639 08/01/20 1129 08/01/20 1531 NA 144 134* 136 K 3.1* 3.6* 3.6* CL 118* 110* 107 CO2 17* 16* 16* BUN 5* 5* 7 CREATININE 0.46* 0.41* 0.60 GLUCOSE 112* 188* 189* Calcium: Recent Labs 08/01/20 1531 CALCIUM 8.4* Ionized Calcium:No results for input(s): IONCA in the last 72 hours. Magnesium: Recent Labs 08/01/20 1531 MG 2.0 Phosphorus: Recent Labs 08/01/20 1531 PHOS 2.7 BNP:No results for input(s): BNP in the last 72 hours. Glucose: Recent Labs 08/01/20 0811 08/01/20 1124 08/01/20 1606 POCGLU 104 187* 174* HgbA1C: Recent Labs 07/31/20 1728 LABA1C 19.0* INR: No results for input(s): INR in the last 72 hours. Hepatic: Recent Labs 07/30/20 0635 ALKPHOS 103 ALT 16 AST 39* PROT 5.3* BILITOT <0.10* BILIDIR <0.08 LABALBU 3.0* Amylase and Lipase:No results for input(s): LACTA, AMYLASE in the last 72 hours. Lactic Acid: No results for input(s): LACTA in the last 72 hours. CARDIAC ENZYMES:No results for input(s): CKTOTAL, CKMB, CKMBINDEX, TROPONINI in the last 72 hours. BNP: No results for input(s): BNP in the last 72 hours. Lipids: No results for input(s): CHOL, TRIG, HDL, LDLCALC in the last 72 hours. Invalid input(s): LDL ABGs: No results found for: PH, PCO2, PO2, HCO3, O2SAT Thyroid: Lab Results Component Value Date TSH 0.35 07/30/2020 Urinalysis: Recent Labs 07/29/201914 BACTERIA NOT REPORTED COLORU YELLOW PHUR 5.0 PROTEINU 2+* RBCUA 0 TO 2 SPECGRAV 1.019 BILIRUBINUR NEGATIVE NITRU NEGATIVE WBCUA 2 TO 5 LEUKOCYTESUR TRACE* GLUCOSEU 3+* Assessment: Active Problems: DKA, type 1, not at goal (HCC) Resolved Problems: * No resolved hospital problems. * Plan: Plan: DM type I: Patient on Lantus 20 units 2 times daily and Humalog 3 times with meal. DKA: Resolved, anion gap closed. Patient bridged to subcu insulin. Noncompliance: Patient has a history of DM type I and was on insulin pump at home but there are issues concerning noncompliance, patient might benefit from forensic social worker consult. Depression: History of depression in the past, stopped taking antidepressant by herself. Recommend psych eval. DVT prophylaxis: Lovenox 40 mg. PT/OT/SW: Consulted Discharge planning: manager retirement consulted Damien Olivarez MD Department of Internal Medicine [facility] [place] 08/01/2020, 7:06 PM Associated attestation - Naomy Morse MD - 08/01/2020 10:21 PM EST Attending Physician Statement I have discussed the case, including pertinent history and exam findings with the resident and the team. I have seen and examined the patient and the brown elements of the encounter have been performedby me. I agree with the assessment, plan and orders as documented by the resident. Review of Systems: In addition to the pertinent positives and negatives as stated within HPI and the review of systemsas documented in their notes, all other systems were reviewed when able to and are reported negative. 25-year-old female with history of type 1 diabetes in the past. She was transferred out of ICU today. She was initially admitted to ICU for DKA. Patient says that she ran out of her insulin for her insulin pump and also her sugar was elevated. Denies chest pain or shortness of breath. She was bridged with insulin drip and currently on Lantus. She also has non-anion gap metabolic acidosis. Stop IV fluids Continue Lantus with premeal sliding scale Discussed with patient she has used Lantus in the past and does have Lantus and NovoLog at home, advised to follow-up with her manager copy/PCP Advised to be compliant with medical recommendations Naomy Morse MD Attending Physician, Internal Medicine Service Internal Medicine Residency Program 08/01/2020, 10:21 PM * Vikki Weber MD - 08/01/2020 11:35 AM EST Critical care team - Resident sign-out to medicine service Date and time: 08/01/2020 11:35 AM Patient's name: Douglas Sousa Patient's account/billing number: [id number] Patient's Date of : 1995 Age: 25 y.o. Date of Admission: 07/29/2020 6:43 PM Length of stay during current admission: 3 Primary Care Physician: Arcadio Iglesias MD Code Status: Full Code Mode of physician to physician communication: [x] Via telephone [] In person Date and time of sign-out: 08/01/2020 11:35 AM Accepting Internal Medicine resident: Dr. Buck Accepting Medicine team: IM Team Med 2 Accepting team's attending: Dr. Morse Patient's current ICU Bed: 105 Patient's assigned bed on floor: 441 [] Med-Surg Monitored [] Step-down [] Psychiatry ICU [] Psych floor Reason for ICU admission: Altered mentation ICU course summary: Patient with past medical history of type 1 diabetes came in with abdominal pain, nausea, vomiting and was found to be in DKA. Patient was started on insulin drip per DKA protocol, patient also foundto have small leukocyte esterase in UA concerning for UTI, and there were also some concerns about a spiration pneumonia on chest x-ray. Patient is currently on ceftriaxone, day 3. Blood cultures havebeen negative. No urine or sputum cultures were sent. Patient is currently alert awake oriented, threatens to leave AMA if he does not get food for choice. Ended up in DKA because of her noncompliance Likely. Procedures during patient's ICU stay: Central line and art line both removed. Current Vitals: BP (!) 123/107 Pulse 62 Temp 98.6 F (37 C) (Oral) Resp 23 Ht 5' 4 (1.626 m) Wt 130 lb (59 kg) SpO2 100% BMI 22.31 kg/m Cultures: Blood cultures: [] None drawn [x] Negative [] Positive (Details: ) Urine Culture: [x] None drawn [] Negative [] Positive (Details: ) Sputum Culture: [x] None drawn [] Negative [] Positive (Details: ) Endotracheal aspirate: [x] None drawn [] Negative [] Positive (Details: ) Consults: 1. None Assessment: Patient Active Problem List Diagnosis Date Noted DKA, type 1, not at goal (HCC) 07/29/2020 Recommended Follow-up: 1. Start Lantus 20 units at 8 PM tonight. 2. Continue medium dose insulin sliding scale 3. Continue K-Phos for replacement as needed. 4. Follow-up on BMP and electrolytes 5. Diabetes education 6. Outpatient endocrine follow-up 7. Follow-up on HbA1c 8. Currently on half-normal saline, can be discontinued once patient is eating okay. 9. Ceftriaxone off because no cultures available. Above mentioned assessment and plan was discussed by me with the admitting medicine resident. The medicine team assigned to the patient by medicine admitting resident will be following up the patientfrom now onwards on the floor. Vikki Weber MD Internal Medicine Resident [facility] 08/01/2020 11:35 AM * Edi Latham MD - 08/01/2020 11:29 AM EST Critical Care Team - Daily Progress Note Date and time: 08/01/2020 11:29 AM Patient's name: Douglas Sousa Patient's account/billing number: [id number] Patient's Date of : 1995 Age: 25 y.o. Date of Admission: 07/29/2020 6:43 PM Length of stay during current admission: 3 Primary Care Physician: Arcadio Iglesias MD ICU Attending Physician: Dr. Code Status: Full Code Reason for ICU admission: DKA, severely acidotic SUBJECTIVE: OVERNIGHT EVENTS: Continues to be afebrile, cultures remain negative. Respiratory rate improved. Currently on room air and saturating well Received 40 units of Lantus total overnight. Takes 20 Lantus twice daily at home. Labs reviewed Potassium, phosphorous, bicarb continues to remain low. Patient is off insulin drip. Hemoglobin a1c pending AWAKE & FOLLOWING COMMANDS: [] No [x] Yes CURRENT VENTILATION STATUS: [] Ventilator [] BIPAP [] Nasal Cannula [x] Room Air IF INTUBATED, ET TUBE MARKING AT LOWER LIP: cms SECRETIONS Amount: [x] Small [] Moderate [] Large [] None Color: [] White [] Colored [] Bloody SEDATION: RAAS Score: [] Propofol gtt [] Versed gtt [] Ativan gtt [] No Sedation PARALYZED: [x] No [] Yes DIARRHEA: [x] No [] Yes (C. Difficile status: [] positive [] negative [] pending) VASOPRESSORS: [x] No [] Yes If yes - [] Levophed [] Dopamine [] Vasopressin [] Dobutamine [] Phenylephrine [] Epinephrine CENTRAL LINES: [x] No [] Yes (Date of Insertion: ) If yes - [x] Right IJ [] Left IJ [] Right Femoral [] Left Femoral [] Right Subclavian [] Left Subclavian CARBALLO'S CATHETER: [] No [x] Yes (Date of Insertion: ) URINE OUTPUT: [x] Good [] Low [] Anuric OBJECTIVE: VITAL SIGNS: BP (!) 123/107 Pulse 62 Temp 98.6 F (37 C) (Oral) Resp 23 Ht 5' 4 (1.626 m) Wt 130 lb (59 kg) SpO2 100% BMI 22.31 kg/m Tmax over 24 hours: Temp (24hrs), Av.9 F (37.2 C), Min:98.4 F (36.9 C), Max:99.9 F (37.7 C) Patient Vitals for the past 8 hrs: BP Temp Temp src Pulse Resp SpO2 Weight 08/01/20 0900 62 23 100 % 08/01/20 0800 (!) 123/107 98.6 F (37 C) Oral 60 24 100 % 08/01/20 0700 116/80 66 21 100 % 08/01/20 0645 73 18 08/01/20 0630 74 19 08/01/20 0615 87 13 08/01/20 0600 128/73 65 21 130 lb (59 kg) 08/01/20 0545 53 (!) 0 08/01/20 0530 54 (!) 0 08/01/20 0515 52 13 08/01/20 0500 (!) 100/58 52 19 08/01/20 0445 58 18 08/01/20 0430 (!) 49 (!) 1 08/01/20 0415 58 16 08/01/20 0400 (!) 102/49 98.4 F (36.9 C) Oral 61 (!) 1 08/01/20 0345 62 20 08/01/20 0330 65 15 Intake/Output Summary (Last 24 hours) at 08/01/2020 1129 Last data filed at 08/01/2020 0900 Gross per 24 hour Intake 6945.31 ml Output 3805 ml Net 3140.31 ml Date 08/01/20 0000 - 08/01/20 2359 Shift 0659-8210 9885-2977 6558-2666 24 Hour Total INTAKE P.O.(mL/kg/hr) 400(0.8) 500 900 I.V.(mL/kg) 825.2(14) 515(8.7) 1340.2(22.7) IV Piggyback(mL/kg) 151(2.6) 151(2.6) Shift Total(mL/kg) 1225.2(20.8) 1166(19.8) 2391.2(40.6) OUTPUT Urine(mL/kg/hr) 1300(2.8) 1300 Shift Total(mL/kg) 1300(22) 1300(22) Weight (kg) 59 59 59 59 Wt Readings from Last 3 Encounters: 08/01/20 130 lb (59 kg) Body mass index is 22.31 kg/m . PHYSICAL EXAM: Constitutional: Awake and alert HEENT: PERRLA, EOMI, sclera clear, anicteric. Neck: Supple, symmetrical, trachea midline, no adenopathy, thyroid symmetric, no jvd skin normal Respiratory: Clear to auscultation, no wheezes or rales and unlabored breathing. No intercostal tenderness Cardiovascular: Regular rate and rhythm, normal S1, S2, no murmur noted and 2+ pulses throughout Abdomen: Soft, tender to palpation, nondistended, no masses or organomegaly Neurological: At baseline Extremities: peripheral pulses normal, no pedal edema, no clubbing or cyanosis Any additional physical findings: MEDICATIONS: Scheduled Meds: insulin lispro 0-12 Units Subcutaneous TID WC insulin lispro 0-6 Units Subcutaneous Nightly insulin glargine 20 Units Subcutaneous BID insulin lispro 3 Units Subcutaneous TID WC enoxaparin 40 mg Subcutaneous Daily Continuous Infusions: potassium phosphate IVPB dextrose sodium chloride 75 mL/hr at 08/01/20 0346 PRN Meds: melatonin, 3 mg, Nightly PRN prochlorperazine, 5 mg, Q6H PRN glucose, 15 g, PRN dextrose, 12.5 g, PRN glucagon (rDNA), 1 mg, PRN dextrose, 100 mL/hr, PRN potassium chloride, 20 mEq, PRN magnesium sulfate, 1,000 mg, PRN SUPPORT DEVICES: [] Ventilator [x] BIPAP [] Nasal Cannula [] Room Air VENT SETTINGS (Comprehensive) (if applicable): FiO2 35% ABGs: Arterial Blood Gas result: pH 7.402; pCO2 20.8; pO2 98.2; HCO3 12.9 Lab Results Component Value Date [id number] 14 07/30/2020 FIO2 35.0 07/30/2020 Lactic Acid: No results found for: LACTA DATA: Complete Blood Count: Recent Labs 07/29/20 1918 07/30/20 1014 WBC 28.5* 13.9* HGB 14.0 12.9 MCV 84.6 77.3* PLT 346 228 RBC 5.32* 4.93 HCT 45.0 38.1 MCH 26.3 26.2 MCHC 31.1 33.9 RDW 13.0 13.2 MPV 9.9 9.8 PT/INR: No results found for: PROTIME, INR PTT: No results found for: APTT, PTT Basal Metabolic Profile: Recent Labs 07/31/20 2258 08/01/20 0302 08/01/20 0639 NA 138 136 144 K 3.5* 3.3* 3.1* BUN 6 5* 5* CREATININE 0.49* 0.47* 0.46* CL 113* 114* 118* CO2 14* 15* 17* Magnesium: Lab Results Component Value Date MG 2.0 08/01/2020 MG 1.8 08/01/2020 MG 1.9 07/31/2020 Phosphorus: Lab Results Component Value Date PHOS 2.2 08/01/2020 PHOS 1.6 08/01/2020 PHOS 1.9 07/31/2020 S. Calcium: Recent Labs 08/01/20 0639 CALCIUM 7.6* S. Ionized Calcium:No results for input(s): IONCA in the last 72 hours. Urinalysis: Lab Results Component Value Date NITRU NEGATIVE 07/29/2020 COLORU YELLOW 07/29/2020 PHUR 5.0 07/29/2020 WBCUA 2 TO 5 07/29/2020 RBCUA 0 TO 2 07/29/2020 MUCUS NOT REPORTED 07/29/2020 TRICHOMONAS NOT REPORTED 07/29/2020 YEAST NOT REPORTED 07/29/2020 BACTERIA NOT REPORTED 07/29/2020 SPECGRAV 1.019 07/29/2020 LEUKOCYTESUR TRACE 07/29/2020 UROBILINOGEN Normal 07/29/2020 BILIRUBINUR NEGATIVE 07/29/2020 GLUCOSEU 3+ 07/29/2020 KETUA LARGE 07/29/2020 AMORPHOUS 1+ 07/29/2020 CARDIAC ENZYMES: No results for input(s): CKMB, CKMBINDEX, TROPONINI in the last 72 hours. Invalid input(s): CKTOTAL;3 BNP: No results for input(s): BNP in the last 72 hours. LFTS Recent Labs 07/30/20 0635 ALKPHOS 103 ALT 16 AST 39* BILITOT <0.10* BILIDIR <0.08 LABALBU 3.0* AMYLASE/LIPASE/AMMONIA Recent Labs 07/30/20 0635 LIPASE 24 Last 3 Blood Glucose: Recent Labs 07/31/20 0252 07/31/20 0604 07/31/20 1118 07/31/20 1505 07/31/20 1904 07/31/20 2258 08/01/20 0302 08/01/20 0639 GLUCOSE 180* 190* 150* 418* 138* 262* 230* 112* HgBA1c: Lab Results Component Value Date LABA1C 19.0 07/31/2020 TSH: Lab Results Component Value Date TSH 0.35 07/30/2020 ANEMIA STUDIES No results for input(s): LABIRON, TIBC, FERRITIN, [id number], FOLATE, OCCULTBLD in the last 72 hours. Cultures during this admission: Blood cultures: [] None drawn [x] Negative [] Positive (Details: ) Urine Culture: [] None drawn [x] Negative [] Positive (Details: ) Sputum Culture: [] None drawn [] Negative [] Positive (Details: ) Endotracheal aspirate: [] None drawn [] Negative [] Positive (Details: ) Chest Xray (08/01/2020): Concern for right lower lobe pneumonia ASSESSMENT AND PLAN : 1. Diabetic ketoacidosis with history of type I DM, secondary to non compliance resolved - Continue half-normal saline at 50 cc an hour. Start Lantus 20 units twice daily, first dose at 8 PM tonight. Start her on premeals 3 units lispro3 times a day and also medium dose insulin sliding scale -Follow-up on CBC -Continue carb controlled diet. 2. Severe anion gap metabolic acidosis secondary to DKA - Improving - Follow up BMP and I.v. fluids. Management as mentioned above Replace electrolytes as needed 3. Acute toxic metabolic encephalopathy, likely secondary to DKA-resolved 4. Concern for right lower lobe aspiration pneumonia - Continue Rocephin 1 g IV every 24 and azithromycin 500 every 12. 5. Concern for acute respiratory distress secondary to metabolic acidosis and underlying pneumonia - Continue antibiotics. 6. Leukocytosis - Likely secondary to dehydration as well as underlying pneumonia. 7. Acute kidney injury - likely pre-renal from dehydration Resolved 8. Hypophosphatemia and hypokalemia Replace with K-Phos as patient is hyperchloremic. Prophylaxis: DVT: Lovenox 40 mg sc daily GI: Pepcid 20 mg BID Dispo: Patient to be transferred out at the ICU to stepdown. Okay to discontinue art line and central line once patient has good peripheral access Vikki Weber MD Internal Medicine Resident [facility] 08/01/2020 11:34 AM Attending Physician Statement I have discussed the care of Douglas Sousa, including pertinent history and exam findings, with the resident. I have seen and examined the patient and the brown elements of all parts of the encounter have been performed by me. I agree with the assessment, plan and orders as documented by the resident with additions . Treatment plan Discussed with nursing staff in detail , all questions answered . Please note that this chart was generated using voice recognition [employer] dictation software. Although every effort was made to ensure the accuracy of this automated transplanter, some errors in transplanter may have occurred. * Edi Latham MD - 07/31/2020 8:37 AM EST Critical Care Team - Daily Progress Note Date and time: 07/31/2020 8:43 AM Patient's name: Douglas Sousa Patient's account/billing number: [id number] Patient's Date of : 1995 Age: 25 y.o. Date of Admission: 07/29/2020 6:43 PM Length of stay during current admission: 2 Primary Care Physician: Arcadio Iglesias MD ICU Attending Physician: Code Status: Full Code Reason for ICU admission: DKA, severely acidotic SUBJECTIVE: OVERNIGHT EVENTS: Continues to have low-grade fever with T-max 100.8-24 hours, rest of the vitals within normal limits Respiratory rate improved. Currently on room air and saturating well Labs reviewed Sodium 137, potassium 3.7, chloride 114, bicarb 16, creatinine within normal limits Blood sugars in 190s and 200s Phosphorous 1.7 Blood tox screen pending Urine tox screen negative Blood alcohol level unremarkable CBC showed leukocytosis which were trending down Blood cultures remain negative Received 71 units almost of regular insulin in last 24 hours Hemoglobin a1c pending AWAKE & FOLLOWING COMMANDS: [] No [x] Yes CURRENT VENTILATION STATUS: [] Ventilator [] BIPAP [] Nasal Cannula [x] Room Air IF INTUBATED, ET TUBE MARKING AT LOWER LIP: cms SECRETIONS Amount: [x] Small [] Moderate [] Large [] None Color: [] White [] Colored [] Bloody SEDATION: RAAS Score: [] Propofol gtt [] Versed gtt [] Ativan gtt [] No Sedation PARALYZED: [x] No [] Yes DIARRHEA: [x] No [] Yes (C. Difficile status: [] positive [] negative [] pending) VASOPRESSORS: [x] No [] Yes If yes - [] Levophed [] Dopamine [] Vasopressin [] Dobutamine [] Phenylephrine [] Epinephrine CENTRAL LINES: [] No [x] Yes (Date of Insertion: ) If yes - [x] Right IJ [] Left IJ [] Right Femoral [] Left Femoral [] Right Subclavian [] Left Subclavian CARBALLO'S CATHETER: [] No [x] Yes (Date of Insertion: ) URINE OUTPUT: [x] Good [] Low [] Anuric OBJECTIVE: VITAL SIGNS: BP 116/78 Pulse 64 Temp 99.1 F (37.3 C) (Core) Resp 18 Ht 5' 4 (1.626 m) Wt 126 lb 1.7 oz (57.2 kg) SpO2 98% BMI 21.65 kg/m Tmax over 24 hours: Temp (24hrs), Av.2 F (37.9 C), Min:99.1 F (37.3 C), Max:100.8 F (38.2 C) Patient Vitals for the past 8 hrs: BP Temp Temp src Pulse Resp SpO2 Weight 07/31/20 0730 64 18 98 % 07/31/20 0700 63 19 99 % 07/31/20 0630 66 19 99 % 07/31/20 0600 66 17 99 % 07/31/20 0536 126 lb 1.7 oz (57.2 kg) 07/31/20 0500 70 20 100 % 07/31/20 0400 116/78 99.1 F (37.3 C) CORE 68 18 100 % 07/31/20 0300 68 18 100 % 07/31/20 0200 73 16 100 % 07/31/20 0100 79 17 98 % Intake/Output Summary (Last 24 hours) at 07/31/2020 0843 Last data filed at 07/31/2020 0800 Gross per 24 hour Intake 4361.5 ml Output 2745 ml Net 1616.5 ml Date 07/31/20 0000 - 07/31/20 2359 Shift 6141-2036 0812-8658 9584-2950 24 Hour Total INTAKE I.V.(mL/kg) 1058(18.5) 1062.4(18.6) 2120.4(37.1) IV Piggyback(mL/kg) 168(2.9) 168(2.9) Shift Total(mL/kg) 1058(18.5) 1230.4(21.5) 2288.4(40) OUTPUT Urine(mL/kg/hr) 875(1.9) 750 1625 Shift Total(mL/kg) 875(15.3) 750(13.1) 1625(28.4) Weight (kg) 57.2 57.2 57.2 57.2 Wt Readings from Last 3 Encounters: 07/31/20 126 lb 1.7 oz (57.2 kg) Body mass index is 21.65 kg/m . PHYSICAL EXAM: Constitutional: Awake and alert HEENT: PERRLA, EOMI, sclera clear, anicteric. Neck: Supple, symmetrical, trachea midline, no adenopathy, thyroid symmetric, no jvd skin normal Respiratory: clear to auscultation, no wheezes or rales and unlabored breathing. No intercostal tenderness Cardiovascular: regular rate and rhythm, normal S1, S2, no murmur noted and 2+ pulses throughout Abdomen: soft, tender to palpation, nondistended, no masses or organomegaly Neurological: At baseline Extremities: peripheral pulses normal, no pedal edema, no clubbing or cyanosis Any additional physical findings: MEDICATIONS: Scheduled Meds: cefTRIAXone (ROCEPHIN) IV 1,000 mg Intravenous Q24H famotidine (PEPCID) injection 20 mg Intravenous BID enoxaparin 40 mg Subcutaneous Daily Continuous Infusions: dextrose 5% and 0.45% NaCl with KCl 20 mEq 250 mL/hr at 07/30/20 1743 dexmedetomidine 0.5 mcg/kg/hr (07/31/20 0311) insulin 4.41 Units/hr (07/31/20 0759) PRN Meds: potassium chloride, 20 mEq, PRN ketorolac, 15 mg, Q6H PRN dextrose, 12.5 g, PRN magnesium sulfate, 1,000 mg, PRN sodium phosphate IVPB, 10 mmol, PRN Or sodium phosphate IVPB, 15 mmol, PRN Or sodium phosphate IVPB, 20 mmol, PRN SUPPORT DEVICES: [] Ventilator [x] BIPAP [] Nasal Cannula [] Room Air VENT SETTINGS (Comprehensive) (if applicable): FiO2 35% ABGs: Arterial Blood Gas result: pH 7.402; pCO2 20.8; pO2 98.2; HCO3 12.9 Lab Results Component Value Date [id number] 14 07/30/2020 FIO2 35.0 07/30/2020 Lactic Acid: No results found for: LACTA DATA: Complete Blood Count: Recent Labs 07/29/20 1918 07/30/20 1014 WBC 28.5* 13.9* HGB 14.0 12.9 MCV 84.6 77.3* PLT 346 228 RBC 5.32* 4.93 HCT 45.0 38.1 MCH 26.3 26.2 MCHC 31.1 33.9 RDW 13.0 13.2 MPV 9.9 9.8 PT/INR: No results found for: PROTIME, INR PTT: No results found for: APTT, PTT Basal Metabolic Profile: Recent Labs 07/30/20 2244 07/30/20 2350 07/31/20 0252 07/31/20 0604 NA 135 -- 138 137 K 3.4* 4.4 3.9 3.7 BUN 14 -- 11 11 CREATININE 0.51 -- 0.56 0.51 CL 113* -- 115* 114* CO2 17* -- 17* 16* Magnesium: Lab Results Component Value Date MG 1.7 07/31/2020 MG 1.8 07/31/2020 MG 1.6 07/30/2020 Phosphorus: Lab Results Component Value Date PHOS 1.7 07/31/2020 PHOS 1.5 07/31/2020 PHOS 1.7 07/30/2020 S. Calcium: Recent Labs 07/31/20 0604 CALCIUM 6.8* S. Ionized Calcium:No results for input(s): IONCA in the last 72 hours. Urinalysis: Lab Results Component Value Date NITRU NEGATIVE 07/29/2020 COLORU YELLOW 07/29/2020 PHUR 5.0 07/29/2020 WBCUA 2 TO 5 07/29/2020 RBCUA 0 TO 2 07/29/2020 MUCUS NOT REPORTED 07/29/2020 TRICHOMONAS NOT REPORTED 07/29/2020 YEAST NOT REPORTED 07/29/2020 BACTERIA NOT REPORTED 07/29/2020 SPECGRAV 1.019 07/29/2020 LEUKOCYTESUR TRACE 07/29/2020 UROBILINOGEN Normal 07/29/2020 BILIRUBINUR NEGATIVE 07/29/2020 GLUCOSEU 3+ 07/29/2020 KETUA LARGE 07/29/2020 AMORPHOUS 1+ 07/29/2020 CARDIAC ENZYMES: No results for input(s): CKMB, CKMBINDEX, TROPONINI in the last 72 hours. Invalid input(s): CKTOTAL;3 BNP: No results for input(s): BNP in the last 72 hours. LFTS Recent Labs 07/30/20 0635 ALKPHOS 103 ALT 16 AST 39* BILITOT <0.10* BILIDIR <0.08 LABALBU 3.0* AMYLASE/LIPASE/AMMONIA Recent Labs 07/30/20 0635 LIPASE 24 Last 3 Blood Glucose: Recent Labs 07/30/20 0255 07/30/20 0635 07/30/20 1112 07/30/20 1538 07/30/20 1903 07/30/20 2244 07/31/20 0252 07/31/20 0604 GLUCOSE 275* 322* 238* 132* 113* 175* 180* 190* HgBA1c: No results found for: LABA1C TSH: Lab Results Component Value Date TSH 0.35 07/30/2020 ANEMIA STUDIES No results for input(s): LABIRON, TIBC, FERRITIN, [id number], FOLATE, OCCULTBLD in the last 72 hours. Cultures during this admission: Blood cultures: [] None drawn [] Negative [] Positive (Details: ) Urine Culture: [] None drawn [] Negative [] Positive (Details: ) Sputum Culture: [] None drawn [] Negative [] Positive (Details: ) Endotracheal aspirate: [] None drawn [] Negative [] Positive (Details: ) Chest Xray (07/31/2020): Concern for right lower lobe pneumonia ASSESSMENT AND PLAN : 1. Diabetic ketoacidosis with history of type I DM, secondary to non compliance - Continue insulin drip as per DKA protocol. - Continue IV fluids with D5 and half-normal saline with potassium chloride 20 mEq at 250 cc an hour. - S/P amp of bicarb and 75 mEq of bicarb in sterile water 500 mL over 2 hours. - Continue to monitor BMP every 4 hours, electrolytes every 4 hours, serial ABGs, replace as needed. -Continue carb controlled clear liquid diet. We will give 1 dose of 20 IV Lantus. Follow-up on BMP every 4 hours and replace electrolytes as needed. 2. Severe anion gap metabolic acidosis secondary to DKA - Improving - Follow up BMP and I.v. fluids. - DKA protocol as above. 3. Acute toxic metabolic encephalopathy, likely secondary to DKA-resolved 4. Concern for right lower lobe aspiration pneumonia - Continue Rocephin 1 g IV every 24 and azithromycin 500 every 12. 5. Concern for acute respiratory distress secondary to metabolic acidosis and underlying pneumonia - Continue antibiotics. 6. Leukocytosis - Likely secondary to dehydration as well as underlying pneumonia. 7. Acute kidney injury - likely pre-renal from dehydration Resolved Prophylaxis: DVT: Lovenox 40 mg sc daily GI: Pepcid 20 mg BID Dispo: To remain in ICU Patient feeling hungry, wanted to eat, however her bicarb remains low. Started her on clear liquid carb controlled diet, gave her 20 IV Lantus, will wean off insulin drip, switch fluids back to normal saline as blood sugars were elevated, will switch the patient to D5 half-normal saline when blood sugars are less than 250. Vikki Weber M.D. Department of Internal Medicine/ Critical care [facility]) 07/31/2020, 8:43 AM Attending Physician Statement I have discussed the care of Douglas Sousa, including pertinent history and exam findings, with the resident. I have seen and examined the patient and the brown elements of all parts of the encounter have been performed by me. I agree with the assessment, plan and orders as documented by the resident with additions . Blood glucose is significantly elevated. Patient is on D5 half-normal saline and she is eating peanut butter and crackers. Threatening to leave AMA if not provided with food. Discussed with patient that blood glucose is greater than 400 anion gap is worsening. Will need to control calorie intake and adjust insulin drip. Plan Discontinue D5 half-normal saline and use half-normal saline at 75 mL's per hour Okay for clear liquid diet without juices Give 20 of Lantus subcu Start decreasing insulin drip Bridge as appropriate DC Carballo catheter Follow noninvasive blood pressure Total critical care time caring for this patient with life threatening, unstable organ failure, including direct patient contact, management of life support systems, review of data including imaging and labs, discussions with other team members and physicians at least 30 Min so far today, excludingprocedures. Treatment plan Discussed with nursing staff in detail , all questions answered . Please note that this chart was generated using voice recognition [employer] dictation software. Although every effort was made to ensure the accuracy of this automated transplanter, some errors in transplanter may have occurred. * Chela Vazquez MD - 07/30/2020 9:09 AM EST Critical Care Team - Daily Progress Note Date and time: 07/30/2020 9:09 AM Patient's name: Douglas Sousa Patient's account/billing number: [id number] Patient's Date of : 1995 Age: 25 y.o. Date of Admission: 07/29/2020 6:43 PM Length of stay during current admission: 1 Primary Care Physician: Arcadio Iglesias MD ICU Attending Physician: Code Status: Full Code Reason for ICU admission: No chief complaint on file. SUBJECTIVE: OVERNIGHT EVENTS: Patient was seen and evaluated at bedside, continues to be tachypenic in low 30s,improved since yesterday overnight, hemodynamically stable. HCO3 12, pCO2 20, pH 7.40, BG 291. K 3.8, getting PRN replacement as well as K in I.v. fluids. She is more awake and following commands as compared to yesterday and is currently wearing BiPAP. AWAKE & FOLLOWING COMMANDS: [] No [x] Yes CURRENT VENTILATION STATUS: [] Ventilator [x] BIPAP [] Nasal Cannula [] Room Air IF INTUBATED, ET TUBE MARKING AT LOWER LIP: cms SECRETIONS Amount: [x] Small [] Moderate [] Large [] None Color: [] White [] Colored [] Bloody SEDATION: RAAS Score: [] Propofol gtt [] Versed gtt [] Ativan gtt [x] No Sedation PARALYZED: [x] No [] Yes DIARRHEA: [x] No [] Yes (C. Difficile status: [] positive [] negative [] pending) VASOPRESSORS: [x] No [] Yes If yes - [] Levophed [] Dopamine [] Vasopressin [] Dobutamine [] Phenylephrine [] Epinephrine CENTRAL LINES: [] No [x] Yes (Date of Insertion: ) If yes - [x] Right IJ [] Left IJ [] Right Femoral [] Left Femoral [] Right Subclavian [] Left Subclavian CARBALLO'S CATHETER: [] No [x] Yes (Date of Insertion: ) URINE OUTPUT: [x] Good [] Low [] Anuric OBJECTIVE: VITAL SIGNS: BP (!) 142/71 Pulse 109 Temp 99.9 F (37.7 C) (Bladder) Resp 30 Ht 5' 4 (1.626 m) Wt 117 lb 15.1 oz (53.5 kg) SpO2 100% BMI 20.25 kg/m Tmax over 24 hours: Temp (24hrs), Av.3 F (36.3 C), Min:93.8 F (34.3 C), Max:99.9 F (37.7 C) Patient Vitals for the past 8 hrs: BP Temp Temp src Pulse Resp SpO2 07/30/20 0900 109 30 100 % 07/30/20 0806 30 100 % 07/30/20 0800 (!) 142/71 99.9 F (37.7 C) Bladder 110 (!) 33 100 % 07/30/20 0737 (!) 36 07/30/20 0700 118 (!) 39 100 % 07/30/20 0600 121 (!) 40 100 % 07/30/20 0500 119 (!) 38 100 % 07/30/20 0422 (!) 41 100 % 07/30/20 0400 (!) 144/80 98.8 F (37.1 C) CORE 119 (!) 39 98 % 07/30/20 0325 (!) 39 07/30/20 0300 119 (!) 40 100 % 07/30/20 0200 119 (!) 36 100 % Intake/Output Summary (Last 24 hours) at 07/30/2020 0909 Last data filed at 07/30/2020 0600 Gross per 24 hour Intake 2655 ml Output 1770 ml Net 885 ml Date 07/30/20 0000 - 07/30/20 2359 Shift 3177-0353 9108-1637 0738-1836 24 Hour Total INTAKE I.V.(mL/kg) 2655(49.6) 2655(49.6) Shift Total(mL/kg) 2655(49.6) 2655(49.6) OUTPUT Urine(mL/kg/hr) 870(2) 870 Shift Total(mL/kg) 870(16.3) 870(16.3) Weight (kg) 53.5 53.5 53.5 53.5 Wt Readings from Last 3 Encounters: 07/29/20 117 lb 15.1 oz (53.5 kg) Body mass index is 20.25 kg/m . PHYSICAL EXAM: Constitutional: Appears in acute distress, initially not answering questions and not following commands. EENT: PERRLA, EOMI, sclera clear, anicteric. Neck: Supple, symmetrical, trachea midline, no adenopathy, thyroid symmetric, no jvd skin normal Respiratory: clear to auscultation, no wheezes or rales and unlabored breathing. No intercostal tenderness Cardiovascular: regular rate and rhythm, normal S1, S2, no murmur noted and 2+ pulses throughout Abdomen: soft, tender to palpation, nondistended, no masses or organomegaly Neurological: Somnolent, not following commands, not answering questions appropriately. Extremities: peripheral pulses normal, no pedal edema, no clubbing or cyanosis Any additional physical findings: MEDICATIONS: Scheduled Meds: magnesium sulfate 2,000 mg Intravenous Once cefTRIAXone (ROCEPHIN) IV 1,000 mg Intravenous Q24H famotidine (PEPCID) injection 20 mg Intravenous BID enoxaparin 40 mg Subcutaneous Daily Continuous Infusions: dextrose 5% and 0.45% NaCl with KCl 20 mEq 250 mL/hr at 07/30/20 0717 insulin 19.89 Units/hr (07/30/20 0903) PRN Meds: potassium chloride, 20 mEq, PRN dextrose, 12.5 g, PRN magnesium sulfate, 1,000 mg, PRN sodium phosphate IVPB, 10 mmol, PRN Or sodium phosphate IVPB, 15 mmol, PRN Or sodium phosphate IVPB, 20 mmol, PRN SUPPORT DEVICES: [] Ventilator [x] BIPAP [] Nasal Cannula [] Room Air VENT SETTINGS (Comprehensive) (if applicable): FiO2 35% ABGs: Arterial Blood Gas result: pH 7.402; pCO2 20.8; pO2 98.2; HCO3 12.9 Lab Results Component Value Date QDH2JOF 14 07/30/2020 FIO2 35.0 07/30/2020 Lactic Acid: No results found for: LACTA DATA: Complete Blood Count: Recent Labs 07/29/201917 WBC 28.5* HGB 14.0 MCV 84.6 PLT 346 RBC 5.32* HCT 45.0 MCH 26.3 MCHC 31.1 RDW 13.0 MPV 9.9 PT/INR: No results found for: PROTIME, INR PTT: No results found for: APTT, PTT Basal Metabolic Profile: Recent Labs 07/29/20 2226 07/29/20 2226 07/30/20 0255 07/30/20 0635 07/30/20 2350 NA 136 -- 139 142 -- K 4.1 < > 3.4* 3.8 4.4 BUN 30* -- 29* 28* -- CREATININE 0.98* -- 0.89 1.08* -- CL 109* -- 109* 111* -- CO2 <6* -- <6* 8* -- < > = values in this interval not displayed. Magnesium: Lab Results Component Value Date MG 1.6 07/30/2020 MG 1.6 07/30/2020 MG 2.0 07/29/2020 Phosphorus: Lab Results Component Value Date PHOS 0.5 07/30/2020 PHOS 1.1 07/30/2020 PHOS 2.9 07/29/2020 S. Calcium: Recent Labs 07/30/2035 CALCIUM 7.2* S. Ionized Calcium:No results for input(s): IONCA in the last 72 hours. Urinalysis: Lab Results Component Value Date NITRU NEGATIVE 07/29/2020 COLORU YELLOW 07/29/2020 PHUR 5.0 07/29/2020 WBCUA 2 TO 5 07/29/2020 RBCUA 0 TO 2 07/29/2020 MUCUS NOT REPORTED 07/29/2020 TRICHOMONAS NOT REPORTED 07/29/2020 YEAST NOT REPORTED 07/29/2020 BACTERIA NOT REPORTED 07/29/2020 SPECGRAV 1.019 07/29/2020 LEUKOCYTESUR TRACE 07/29/2020 UROBILINOGEN Normal 07/29/2020 BILIRUBINUR NEGATIVE 07/29/2020 GLUCOSEU 3+ 07/29/2020 KETUA LARGE 07/29/2020 AMORPHOUS 1+ 07/29/2020 CARDIAC ENZYMES: No results for input(s): CKMB, CKMBINDEX, TROPONINI in the last 72 hours. Invalid input(s): CKTOTAL;3 BNP: No results for input(s): BNP in the last 72 hours. LFTS No results for input(s): ALKPHOS, ALT, AST, BILITOT, BILIDIR, LABALBU in the last 72 hours. AMYLASE/LIPASE/AMMONIA No results for input(s): AMYLASE, LIPASE, AMMONIA in the last 72 hours. Last 3 Blood Glucose: Recent Labs 07/29/20 1918 07/29/20 2226 07/30/20 0255 07/30/20 0635 GLUCOSE 368* 360* 275* 322* HgBA1c: No results found for: LABA1C TSH: No results found for: TSH ANEMIA STUDIES No results for input(s): LABIRON, TIBC, FERRITIN, [id number], FOLATE, OCCULTBLD in the last 72 hours. Cultures during this admission: Blood cultures: [] None drawn [] Negative [] Positive (Details: ) Urine Culture: [] None drawn [] Negative [] Positive (Details: ) Sputum Culture: [] None drawn [] Negative [] Positive (Details: ) Endotracheal aspirate: [] None drawn [] Negative [] Positive (Details: ) Chest Xray (07/30/2020): Concern for right lower lobe pneumonia ASSESSMENT AND PLAN : 1. Diabetic ketoacidosis with history of type I DM, secondary to non compliance - Continue insulin drip as per DKA protocol. - Continue IV fluids with D5 and half-normal saline with potassium chloride 20 mEq at 250 cc an hour. - S/P amp of bicarb and 75 mEq of bicarb in sterile water 500 mL over 2 hours. - Continue to monitor BMP every 4 hours, electrolytes every 4 hours, serial ABGs, replace as needed. -Continue n.p.o. 2. Severe anion gap metabolic acidosis secondary to DKA - Improving - Follow up BMP and I.v. fluids. - DKA protocol as above. 3. Acute toxic metabolic encephalopathy, likely secondary to DKA-improving - Continue to monitor mentation, follow TSH, will order more work-up if needed. - Continue n.p.o., advance diet as mentation improves and the patient is able to tolerate p.o. 4. Concern for right lower lobe aspiration pneumonia - Continue Rocephin 1 g IV every 24 and azithromycin 500 every 12. - Respiratory cultures and blood cultures. 5. Concern for acute respiratory distress secondary to metabolic acidosis and underlying pneumonia - Continue antibiotics. - Continue to treat DKA and monitor serial ABGs, currently no indication for intubation. 6. Leukocytosis - Likely secondary to dehydration as well as underlying pneumonia. - Continue to monitor white blood count, continue antibiotics and IV fluids. 7. Acute kidney injury - likely pre-renal from dehydration - Continue I.v. fluids, follow up BMP. Prophylaxis: DVT: Lovenox 40 mg sc daily GI: Pepcid 20 mg BID Dispo: To remain in ICU Chela Vazquez M.D. Department of Internal Medicine/ Critical care [facility]) 07/30/2020, 9:09 AM Associated attestation - Stan Perez MD - 07/30/2020 10:31 PM EST Critical Care Attending Physician Addendum: I have personally seen and examined Douglas Sousa with the resident and the borwn elements of all parts of the encounter were performed by me. Patient was reassessed on more than one occasion, when required. I reviewed the interval history, interpreted all available radiographic, laboratory and physiologic data at the time of service. I agree with the assessment and plan as documented by resident. Critical care time (excluding procedures) of greater than 30 minutes was spent in coordination of care during bedside rounds and discussion of patient care in detail. Continue insulin infusion as per DKA protocol. Monitor electrolyte, intake/output, transition to long acting insulin when anion gap closes. Stan Perez M.D. Pulmonary and Critical Care Medicine * Sadie Ramirez RN - 07/30/2020 8:16 AM EST Patient constantly pulling off bipap and is difficult to redirect. Bilateral mittens applied per order from Dr. Vazquez. documented in this encounter Assessments Diagnosis DKA, type 1, not at goal (HCC)- Primary Diagnosis DKA, type 1, not at goal ([facility]) Type I (juvenile type) diabetes mellitus with ketoacidosis, uncontrolled Reason for Referral Specialty Diagnoses / Procedures Referred By Contac t Referred To Contact Procedures Discharge Follow-Up Ronal Logan MD [address] [place] [address], [address] [place] [address] Referral ID Status Reason Start Date Expiration Date V isits Requested Visits Authorized [id number] Pending Review 07/04/2023 07/03/2024 1 1 Specialty Diagnoses / Procedures Referred By Contac t Referred To Contact Diagnoses Diabetic ketoacidosis without coma associated with type 1 diabetes mellitus ([facility]) Procedures Follow-up with primary care provider Ronal Logan MD [address] [place] [address], [address] [place] [address] Referral ID Status Reason Start Date Expiration Date V isits Requested Visits Authorized [id number] Pending Review 07/04/2023 07/03/2024 1 1 Specialty Diagnoses / Procedures Referred By Contac t Referred To Contact Procedures No dressing needed Ronal Logan MD [address] [place] [address], [address] [place], [place] [id number] Referral ID Status Reason Start Date Expiration Date V isits Requested Visits Authorized [id number] Pending Review 07/04/2023 07/03/2024 1 1 Specialty Diagnoses / Procedures Referred By Contac t Referred To Contact Procedures Adult diet Ronal Logan MD [address] [place] [address], [address] [place], [place] [phone] Referral ID Status Reason Start Date Expiration Date V isits Requested Visits Authorized [id number] Pending Review 07/04/2023 07/03/2024 1 1 Additional Source Comments INFORMATION SOURCE (unrecogn ized section and content) DATE CREATED AUTHOR 07/08/2018 [facility] DATE CREATED AUTHOR AUTHOR'S ORGANIZ ATION 06/14/2020 [facility] DATE CREATED AUTHOR AUTHOR'S ORGANIZ ATION 08/02/2020 [facility] DATE CREATED AUTHOR AUTHOR'S ORGANIZ ATION 09/18/2022 [facility] DATE CREATED AUTHOR AUTHOR'S ORGANIZ ATION 04/02/2023 [facility] DATE CREATED AUTHOR AUTHOR'S ORGANIZ ATION 07/03/2023 [facility] DATE CREATED AUTHOR AUTHOR'S ORGANIZ ATION 07/06/2023 [facility] DATE CREATED AUTHOR AUTHOR'S ORGANIZ ATION [facility] Reason for Visit (unrecogniz ed section and content) Status Reason Specialty Diagnoses / Procedures Referre d By Contact Referred To Contact Diagnoses DKA, type 1, not at goal (HCC) DKA Status Reason Specialty Diagnoses / Procedures Referre d By Contact Referred To Contact Diagnoses DKA, type 1, not at goal (HCC) DKA Stan Perez MD [address] [place] [id number] [facility] Specialty Diagnoses / Procedures Referred By Contac t Referred To Contact Diagnoses DKA (diabetic ketoacidosis) (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) DKA Letty Yee MD [address] [place] [address] Referral ID Status Reason Start Date Expiration Date Visits Re quested Visits Authorized [id number] 1 1 Binh Virk MD - 06/07/2020 11:16 AM EST H&P Notes (unrecognized sect ion and content) Hospitalist History and Physical Patient Name: Douglas Cordova : 1995 MR #: [id number] Admit Date: Physicians: No primary care provider on file. (Family); System, Provider Not In (Referring) Perpetual Assessment: Douglas Cordova is a 25 y.o. female patient of No primary care provider on file. with history of DM1 presented with hyperglycemia. Impression and Plan: DKA from [facility], non compliance with her home insulin On Insulin gtt prior to arrival DKA pathway. Cont Insulin gtt + IVF A1c Monitor BMP, lytes. Hydroxybuterate Microcytosis Will check iron level. Underweight/ cachexia Encourage to eat once tolerated Gastroenteritis, resolved. Chief Complaint: DKA History of Present Illness: Douglas Cordova is a 25 y.o. female patient admitted to hospitalist service on 06/07/2020 with DKA. Patient is not a good historian or does not offer much information when asked. Per report from [facility] in [place] stated patient stopped taking her insulin 3 weeks ago and came to the hospital with flank pain. She is also known to their hospital for frequent admissions. Initial workup revealed AG of >12. Past Medical History: No past medical history on file. Past Surgical Hisory: No past surgical history on file. Home Medications: No current outpatient medications on file as of 06/07/2020. Family History: No family history on file. Social History: Social History Tobacco Use Smoking Status Not on file Social History Substance and Sexual Activity Alcohol Use Not on file Social History Substance and Sexual Activity Drug Use Not on file Allergy Information: I have reviewed the patient's allergies. Patient has no allergy information on record. ROS: The following system(s) were reviewed and pertinent positives were noted in the HPI section: Constitutional, Eyes, ENT, CV, Resp, GI, , Neuro, Musculoskeletal, Skin, Endocrine, Hematalogial/Lymphatic and Psychiatric. PHYSICAL EXAMINATION: Vital Signs: There were no vitals taken for this visit. General appearance: Alert, thin and frail appearing, and in no acute distress. Carballo cath. Cardiovascular: inc RR, S1,S2 normal. No murmurs, rubs, clicks or gallops appreciated. No pedal edema. Respiratory/Chest: Lungs clear to auscultation, no wheezes, rales or rhonchi heard. Abdomen: Soft, nontender, normal bowel sounds, nondistended, no masses or organomegaly appreciated. Laboratory and Additional Data Reviewed: Results/Medications Reviewed 12/09/20 11:16 AM: Invalid input(s): CO2 Invalid input(s): CKMBINDEX Invalid input(s): LABALBU Invalid input(s): GLUCR, KETONEUR, LEUKESUR CULTURES: Reviewed 11:16 AM IMAGING: Reviewed 11:16 AM Expected Discharge/Time Spent: documented in this encounter Marya Jacobs LSW - 06/09/2020 11:02 AM Shu Mora RN - 06/09/2020 9:[address] - 06/08/2020 2:42 PM EST Consult Notes (unrecognized section and content) Associated Order(s): IP CONSULT TO CARE MANAGEMENT COMPLEX DISCHARGE Date: 06/09/2020 Time: 11:02 AM Patient Name: Douglas Cordova Date of : 1995 Sex: Female Safety Council Director f2f with patient. Patient reports she is linked with an manager copy and a primary care physician. She will speak with them about changing insulin if needed. Safety Council Director did speak with patient about ride home, explained she can have ambulette transportation but has to have discharge orders in. Patient denied other needs. Associated Order(s): IP CONSULT TO BAKERY WORKER Reviewed lab results: Blood sugar trends: 103-517 mg/dL Fasting blood sugar: 364 mg/dL Admission Dx: Reviewed H&P, Chart Review and Results Review tabs. Pre-admission and admission medication regimen reviewed. A1c: 17.8% Admission Dx: DKA, hx of T1 diabetes since age 6. Recently , she has 2 children and states that her mother is ill and she helps take care of her. 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 Medications: Levemir 12 units BID, Humalog with meals (takes about 10 units with a meal) Glucose Monitoring: Admits that she is not monitoring her blood sugar regularly Subjective: I am so afraid that I am going to gain weight if I take my insulin and I can't get it out of my head Admits that she is depressed and need to seek outside counseling for coping skills. Instructed that when the blood sugar is high the body is in ketosis and begins to eat fat and muscle stores. The waste products of ketosis can cause kidney damage especially in a diabetic. Diabetes Education provided: Diabetes Risk factors: elevated blood sugar over time can cause heart attacks, stroke, neuropathy, blindness, kidney damage and cause wounds that do not heal leading to amputations. The patient requested education on CHO counting stating, I really don't understand it . Healthy eating limit portions and processed foods. Use My Plate as a guide. Women 2-3 choices of starchy foods per meal. Each choice = to about cup or 15 grams of CHO S (30-45 grams per meal).Limit fat and salt for weight management and heart health. Handout provided with a list of healthy CHO food choices. Plan/Recommendations: 1. Patient would benefit from outpatient counseling for coping skills. She states she has an appointment in [facility]. 2. Patient verbalizes that she will take her insulin and that she has a better idea of how to eat healthy controlling her blood sugar and weight. Educated on problem solving to understand behavior in relationship to blood glucose numbers. Associated Order(s): IP CONSULT TO DIETITIAN Nutrition Care Initial Assessment Reason for visit: Dietitian Screen/Physican c/s for Diabetic Diet education Nutrition Diagnosis: Food and nutrition related knowledge deficit related to Diabetic Diet as evidenced by A1c of 17.8%. Will follow per protocol and monitor wts, labs, and clinical course. Nutrition Intervention: Continue Meal and Snacks Nutrition Prescription: Diet: Diabetic 60 g/meal Oral nutrition supplement: monitor for need Tube Feeding: n/a Nutrition Goals: PO intake > 50%% most meals Start Date:06/08/2020 Expected End Date:06/15/2020 Nutrition Education: Attempted to reach pt via phone in pt room, pt was unavailable. Will include Diabetic Diet information in AVS. Assessment: Pertinent clinical information: Pt is 25 yo female who presented with hyperglycemia. Pt with hx of DM type 1. Pt found in DKA from [facility] d/t non-compliance with her home insulin, hypoPO4, hypoK, microcytosis, gastroenteritis, and leukocytosis. Last A1c of 17.8% on 06/07/20. No past medical history on file. Height: 5' 8 Current weight: 59.1 kg (130 lb 4.7 oz) Body mass index is 19.81 kg/m . Weight hx: Reviewed Wt Readings from Last 5 Encounters: 06/08/20 59.1 kg (130 lb 4.7 oz) 06/07/20 52.2 kg (115 lb 1.3 oz) Current diet order: Diabetic 60 g/meal Recent intake: 75-100%. Current intake likely meets estimated needs. Patient/family comments: Attempted to reach pt via phone in pt room, pt was unavailable. Pt with good PO intake. Difficulty Chewing/Swallowing: None noted Skin Integrity: Intact GI Function: LBM unknown, -flatus Physical Appearance: TOMMY Labs: Recent Labs 06/08/20 0352 06/08/20 0352 06/08/20 1151 NA 137 < > 136 K 3.7 < > 3.0* BICARB 12* < > 15* CL 115* < > 113* GLUCOSE 100* < > 134* BUN 9 < > 7* CREATININE 0.56 < > 0.55 MG 1.9 -- -- PHOS 1.4* -- -- < > = values in this interval not displayed. Scheduled Meds: enoxaparin (LOVENOX) injection 40 mg Subcutaneous Daily insulin glargine 15 Units Subcutaneous BID lispro insulin 0-15 Units Subcutaneous at bedtime insulin lispro 0-30 Units Subcutaneous TID AC pantoprazole 40 mg Oral Daily potassium chloride 20 mEq Intravenous Q1H if indicated in MAR calculator sod phos di, mono-K phos mono 500 mg Oral BID sodium chloride (PF) 5 mL Intravenous Q8H KYARA Continuous Infusions: dextrose 5 % and sodium chloride 0.45 % dextrose 5 % and sodium chloride 0.45 % with KCl 20 mEq/L 125 mL/hr (06/08/20 1353) insulin infusion IV - DKA Stopped (06/08/20 1020) sodium chloride 0.9 % sodium chloride 0.9 % Lisa Moore RD, LD Office: [phone] documented in this encounter Plan of Care - Adelaida Mead RN - 06/08/2020 9:17 PM ESTQuick Note - Kendal Jordan, TECHNOLOGIST - 06/08/2020 8:52 PM ESTPlan of Care - Adelaida Mead RN - 06/08/2020 2:35 AM EST Miscellaneous Notes (unrecog nized section and content) Problem: Actual or potential alteration in health Goal: Absence of healthcare acquired conditions Outcome: Partially Met Goal: Knowledge of Interdisciplinary Plan of Care Outcome: Partially Met Goal: Knowledge of Enviroment Outcome: Partially Met [id number] goggles gloves Pt not wearing a mask Problem: Actual or potential alteration in health Goal: Absence of healthcare acquired conditions Outcome: Partially Met Goal: Knowledge of Interdisciplinary Plan of Care Outcome: Partially Met Goal: Knowledge of Enviroment Outcome: Partially Met documented in this encounter Scheduled Active and Recently Administ ered Medications (unrecognized section and content) Medication Order 07/02/2023 07/03/2023 07/04/2023 enoxaparin (LOVENOX) syringe 40 mg 40 mg, subcutaneous, Daily, First dose on Ailin 07/03/23 at 1115, Look-alike/sound-alike medication - verify indication for use. 1115 (Not Given - Provider: Anurag Shipman RN - Reason: Patient/family refused) 0900 (Not Given - Provider: Félix Hamlin RN - Reason: Patient/family refused) insulin glargine (LANTUS, SEMGLEE) injection pen 10 Units (CANCELED) 10 Units, subcutaneous, 2 times daily, First dose on Ailin 07/03/23 at 0215, Only hold for blood sugar less than 140 regardless of dietary status. Call MD if held. Do NOT mix with other insulins. Notify prescriber if blood glucose greater than 400 mg/dL. Look-alike/sound-alike medication - verify indication for use. Prime with 2 units of insulin prior to administration. Basal (long acting) insulin for subcutaneous administration only. Do not mix with any other insulin. Pre-filled pens stable 28 days at room temperature. 0346 (Given - Provider: Evelyn Rhodes RN)0826 (Given - Provider: Anurag Shipman RN - Comment: bs 200) insulin glargine (LANTUS, SEMGLEE) injection pen 10 Units (COMPLETED) 10 Units, subcutaneous, Once, On Fri07/03/23 at 0845, For 1 dose, Look-alike/sound-alike medication - verify indication for use. Prime with 2 units of insulin prior to administration. Basal (long acting) insulin for subcutaneous administration only. Do not mix with any other insulin. Pre-filled pens stable 28 days at room temperature. 0945 (Given - Provider: Anurag Shipman RN - Comment: bs 149, order placed by PA manager copy) insulin glargine (LANTUS, SEMGLEE) injection pen 20 Units 20 Units, subcutaneous, 2 times daily, First dose on Fri07/04/23 at 0900, Look-alike/sound-alike medication - verify indication for use. Prime with 2 units of insulin prior to administration. Basal (long acting) insulin for subcutaneous administration only. Do not mix with any other insulin. Pre-filled pens stable 28 days at room temperature. 0854 (Given - Provider: Félix Hamlin RN) insulin lispro (HumaLOG) injection 2-10 Units 2-10 Units, subcutaneous, 4 times daily with meals and nightly, First dose on Fri07/04/23 at 1200, Please give 2 units per 15 grams of carbohydrates up to 10 units per 75 grams of carbohydrates within 15 minutes of finishing meals. Wait 2 hours before adjusting insulin drip rate after bolus Look-alike/sound-alike medication - verify indication for use. Prime with 2 units of insulin prior to administration. Prandial/supplemental Insulin. Pre-filled pens stable 28 days at room temperature. Insulin lispro should be administered within 15 minutes before or immediately after a meal. 1244 (Given - Provider: Attila Munguia RN) insulin lispro (HumaLOG) injection 2-10 Units 2-10 Units, subcutaneous, 3 times daily with meals, First dose on Fri07/04/23 at 1700, Daytime hyperglycemia dosing. For blood glucose 151-200 mg/dL, give 2 units. For blood glucose 201-250 mg/dL, give 4 units. For blood glucose 251-300 mg/dL, give 6 units. For blood glucose 301-350 mg/dL, give 8 units. For blood glucose 351-400 mg/dL, give 10 units. Give even if NPO or meals skipped. Do NOT give more often then every 4 hours when NPO. Look-alike/sound-alike medication - verify indication for use. Prime with 2 units of insulin prior to administration. Prandial/supplemental Insulin. Pre-filled pens stable 28 days at room temperature. Insulin lispro should be administered within 15 minutes before or immediately after a meal. insulin lispro (HumaLOG) injection 2-8 Units 2-8 Units, subcutaneous, Nightly, First dose on Fri07/04/23 at 2200, Bedtime hyperglycemia dosing. For blood glucose 201-250 mg/dL, give 2 units. For blood glucose 251-300 mg/dL, give 4 units. For blood glucose 301-350 mg/dL, give 6 units. For blood glucose 351-400 mg/dL, give 8 units. Give even if NPO or meals skipped. Do NOT give more often then every 4 hours when NPO. Look-alike/sound-alike medication - verify indication for use. Prime with 2 units of insulin prior to administration. Prandial/supplemental Insulin. Pre-filled pens stable 28 days at room temperature. Insulin lispro should be administered within 15 minutes before or immediately after a meal. ondansetron (PF) (ZOFRAN) injection 4 mg (COMPLETED) 4 mg, intravenous, Once, On Fri07/03/23 at 0345, For 1 dose, Administer over 2-5 minutes. 0344 (Given - Provider: Evelyn Rhodes RN) sod phos di, mono-K phos mono (K-PHOS NEUTRAL) 250 mg tablet 1 tablet 1 tablet, oral, 2 times daily, First dose on Fri07/04/23 at 1115, Look-alike/sound-alike medication - verify indication for use. Give with a full glass of water. 1243 (Given - Provider: Attila Munguia RN) sodium chloride 0.9 % flush 10 mL(Linked Group 1) 10 mL, intravenous, Every 12 hours, First dose (after last modification) on Ailin 07/03/23 at 0530, PICC line. Administer 10 mL per lumen; 10 mL total (for single lumen flush) 0533 (Given - Provider: Evelyn Rhodes RN)1632 (Given - Provider: Anurag Shipman, RN) 0453 (Given - Provider: Evelyn Rhodes RN) sodium chloride 0.9 % flush 20 mL(Linked Group 2) 20 mL, intravenous, Every 12 hours, First dose on Fri07/02/23 at 1830, PICC line. Administer 10 mL per lumen; 20 mL total (for double lumen flush) 1830 (Given - Provider: Evelyn Rhodes RN) 0533 (Given - Provider: Evelyn Rhodes RN)1811 (Given - Provider: Anurag Shipman RN) 0630 (Given - Provider: Evelyn Rhodes RN) sodium phosphate 30 mmol in sodium chloride 0.9 % 250 mL IVPB (COMPLETED) 30 mmol, intravenous, at 43.3 mL/hr, Administer over 6 Hours, Once, On Fri07/02/23 at 2215, For 1 dose 2244 (New Bag - Provider: Evelyn Rhodes RN) 0444 (Stop Bag - Provider: Evelyn Rhodes RN) sodium phosphate 30 mmol in sodium chloride 0.9 % 250 mL IVPB (COMPLETED) 30 mmol, intravenous, at 43.3 mL/hr, Administer over 6 Hours, Once, On Fri07/04/23 at 0415, For 1 dose 0452 (New Bag - Provider: Evelyn Rhodes RN)0526 (Rate/Dose Verify - Provider: Evelyn Rhodes RN)0706 (Rate/Dose Verify - Provider: Attila Munguia RN)0900 (Paused - Provider: Félix Hamlin, NEW)0902 (Restarted - Provider: Félix Hamlin, RN)1052 (Stop Bag - Provider: Félix Hamlin, NEW) Continuous Medication Order 07/02/2023 07/03/2023 07/04/2023 D5 % and 0.45 % sodium chloride 1,000 mL with potassium chloride 40 mEq infusion (CANCELED) 250 mL/hr, intravenous, Continuous, Starting on Fri07/02/23 at 1830 1856 (New Bag - Provider: Laura Leigh RN)2318 (New Bag - Provider: Evelyn Rhodes RN) 0312 (New Bag - Provider: Evelyn Rhodes RN)0717 (Stop Bag - Provider: Evelyn Rhodes RN) D5 % and lactated ringer's 1,000 mL with potassium chloride 40 mEq infusion (CANCELED) 250 mL/hr, intravenous, Continuous, Starting on Fri07/03/23 at 1115 1115 (Hold - Provider: Anurag Shipman RN - Reason: Other - Comment: per Dr. Katalina domínguez prn potassium replacement (50 MEQ) before starting infusion)1818 (New Bag - Provider: Anurag Shipman RN)1828 (Rate/Dose Verify - Provider: Anurag Shipman RN)2202 (New Bag - Provider: Evelyn Rhodes RN) 0150 (New Bag - Provider: Evelyn Rhodes RN)0526 (Rate/Dose Verify - Provider: Evelyn Rhodes RN)0602 (New Bag - Provider: Evelyn Rhodes RN)0706 (Rate/Dose Verify - Provider: Attila Munguia RN)1036 (New Bag - Provider: Félix Hamlin, NEW)1117 (Stop Bag - Provider: Félix Hamlin RN) dextrose 5 % and sodium chloride 0.45 % infusion (CANCELED) 250 mL/hr, intravenous, Continuous, Starting on Fri07/02/23 at 1730, Run with insulin gtt until potassium containing fluids arrive from pharmacy 1721 (New Bag - Provider: Laura Leigh RN)1814 (Rate/Dose Verify - Provider: Laura Leigh RN)1857 (Stop Bag - Provider: Laura Leigh RN) dextrose 5 % and sodium chloride 0.45 % with KCl 40 mEq/L infusion (CANCELED) 250 mL/hr, intravenous, Continuous, Starting on Fri07/03/23 at 0545 0717 (New Bag - Provider: Evelyn Rhodes RN)0824 (Paused - Provider: Anurag Shipman RN)0826 (Restarted - Provider: Anurag Shipman RN)0833 (Paused - Provider: Anurag Shipman RN)0835 (Restarted - Provider: Anurag Shipman RN)0945 (Stop Bag - Provider: Anurag Shipman RN)0946 (Stop Bag - Provider: Anurag Shipman RN - Comment: insulin drip paused, K 3.0, per stop fluids as well, BS 149) insulin regular (MYXREDLIN) infusion 100 units/100 mL in sodium chloride 0.9% (1 unit/mL premix) (CANCELED) 0.2-54 Units/hr (0.2-54 mL/hr), intravenous, Continuous, Starting on Fri07/02/23 at 1715, Insulin Infusion Orders: Initiating Infusion: Use the patient's current blood glucose result and guidelines in Table A Column 2 to initiate infusion. If subcutaneous rapid-acting insulin is administered with meals, stay in the same column at the same rate for the next 2 hours. Rules for Column changes after initiating drip: Determine hourly drip rate by comparing the current blood glucose result to previous blood glucose result with guidelines in Table B to adjust insulin infusion. Rules for Column 7-9 changes: use the patient's current blood glucose result and guidelines in Table B and Table C to adjust high dose insulin infusion. Stop Insulin Infusion for potassium level 3.3 mmol/L or less. *Do not change insulin drip rate for 2 hours if correction scale given for meal. Notify prescriber if blood glucose greater than 400 mg/dL. Look-alike/sound-alike medication. Verify indication for use. 1710 (Restarted - Provider: Laura Leigh RN - Comment: bs 231)1812 (Rate/Dose Change - Provider: Laura Leigh RN)181 (Rate/Dose Verify - Provider: Laura Leigh RN)1900 (Rate/Dose Change - Provider: Laura Leigh RN)2006 (Rate/Dose Change - Provider: Evelyn Rhodes RN)2106 (Rate/Dose Change - Provider: Evelyn Rhodes RN)2107 (New Bag - Provider: Evelyn Rhodes RN)220 (Rate/Dose Change - Provider: Evelyn Rhodes RN)2300 (Rate/Dose Change - Provider: Evelyn Rhodes RN) 0015 (Rate/Dose Change - Provider: Evelyn Rhodes RN)0100 (Rate/Dose Change - Provider: Evelyn Rhodes RN)0201 (Hold - Provider: Evelyn Rhodes RN - Reason: Order parameters not met - Comment: Pt's K 3.2. Per order, with K less than 3.3, turn off insulin gtt)0529 (Restarted - Provider: Evelyn Rhodes RN - Comment: restarted at previous rate due to K lab threshold)0603 (Rate/Dose Change - Provider: Evelyn Rhodes RN - Comment: gtt just restarted. per clinical decision, move to 20 units,instead of 26)0606 (Rate/Dose Change - Provider: Evelyn Rhodes RN)0627 (Rate/Dose Verify - Provider: Evelyn Rhodes RN)0709 (Rate/Dose Verify - Provider: Anurag Shipman RN)0709 (Rate/Dose Verify - Provider: Anurag Shipman RN)0713 (Rate/Dose Change - Provider: Anurag Shipman RN)0716 (Stop Bag - Provider: Anurag Shipman RN)0716 (New Bag - Provider: Evelyn Rhodes RN)0725 (Handoff - Provider: Evelyn Rhodes RN)0824 (Paused - Provider: Anurag Shipman RN)0826 (Restarted - Provider: Anurag Shipman RN)0833 (Paused - Provider: Anurag Shipman RN)0835 (Restarted - Provider: Anurag Shipman RN)0940 (Stop Bag - Provider: Anurag Shipman RN - Comment: potassium level of 3, will resume once 3.3, MD aware)1815 (Restarted - Provider: Anurag Shipman RN - Comment: bs 171)1828 (Rate/Dose Verify - Provider: Anurag Shipman RN)1853 (Rate/Dose Verify - Provider: Anurag Shipman RN)1854 (Handoff - Provider: Anurag Shipman RN)1946 (Rate/Dose Change - Provider: Evelyn Rhoeds RN)2138 (Rate/Dose Change - Provider: Evelyn Rhodes RN)2240 (Rate/Dose Change - Provider: Evelyn Rhodes RN)2337 (Rate/Dose Change - Provider: Evelyn Rhodes RN) 0058 (New Bag - Provider: Evelyn Rhodes RN - Comment: BS 235)0142 (Rate/Dose Change - Provider: Evelyn Rhodes RN)0143 (Rate/Dose Verify - Provider: Evelyn Rhodes RN)0241 (Rate/Dose Verify - Provider: Evelyn Rhodes RN)0243 (Rate/Dose Change - Provider: Evelyn Rhodes RN)0244 (Rate/Dose Verify - Provider: Evelyn Rhodes RN)0346 (Rate/Dose Change - Provider: Evelyn Rhodes RN)0346 (Rate/Dose Verify - Provider: Evelyn Rhodes RN)0440 (Rate/Dose Change - Provider: Evelyn Rhodes RN)0441 (Rate/Dose Verify - Provider: Evelyn Rhodes RN)0526 (Rate/Dose Verify - Provider: Evelyn Rhodes RN)0541 (Rate/Dose Change - Provider: Evelyn Rhodes RN)0542 (Rate/Dose Verify - Provider: Attila Munguia RN)0705 (Handoff - Provider: Attila Munguia RN)0852 (Rate/Dose Change - Provider: Félix Hamlin RN)0852 (Rate/Dose Verify - Provider: Félix Hamlin RN)0900 (Paused - Provider: Félix Hamlin RN)0902 (Restarted - Provider: Félix Hamlin RN)1002 (Rate/Dose Change - Provider: Félix Hamlin RN)1002 (Rate/Dose Verify - Provider: Félix Hamlin RN)1113 (Stop Bag - Provider: Félix Hamlin RN) PRN Medication Order 07/02/2023 07/03/2023 07/04/2023 calcium gluconate 3,000 mg in sodium chloride 0.9 % 100 mL IVPB(Linked Group 3) 3,000 mg, intravenous, at 130 mL/hr, Administer over 60 Minutes, As needed, for ionized calcium level less than 3 mg/dL, Starting on Fri07/02/23 at 1728, CALL PHYSICIAN if this dose is administered. Recheck ionized calcium 6 hours after infusion. Hold calcium replacement for phosphorus greater than 5.5 mg/dL. VESICANT (RED) 1027 (See Alternative - Provider: Anurag Shipman RN)1127 (See Alternative - Provider: Anurag Shipman RN) calcium gluconate IVPB 1000 mg/50 mL (20 mg/mL premix)(Linked Group 3) 1,000 mg, intravenous, at 50 mL/hr, Administer over 60 Minutes, As needed, for ionized calcium level 3.5 to 4.4 mg/dL, Starting on Fri07/02/23 at 1728, Recheck ionized calcium 6 hours after infusion. Hold calcium replacement for phosphorus greater than 5.5 mg/dL. VESICANT (RED) 1027 (New Bag - Provider: Anurag Shipman RN)1127 (Stop Bag - Provider: Anurag Shipman RN) calcium gluconate IVPB 2000 mg/100 mL (20 mg/mL premix)(Linked Group 3) 2,000 mg, intravenous, at 100 mL/hr, Administer over 60 Minutes, As needed, for ionized calcium level 3 to 3.4 mg/dL, Starting on Fri07/02/23 at 1728, Recheck ionized calcium 6 hours after infusion. Hold calcium replacement for phosphorus greater than 5.5 mg/dL. VESICANT (RED) 1027 (See Alternative - Provider: Anurag Shipman RN)1127 (See Alternative - Provider: Anurag Shipman RN) dextrose (GLUTOSE) 40 % gel 15 g 15 g, oral, As needed, low blood sugar, blood glucose less than 70 mg/dL, Starting on Fri07/02/23 at 1705, If patient conscious and taking PO. If blood glucose is not greater than 70 mg/dL after initial treatment, repeat treatment. dextrose 5 % (D5W) infusion 100 mL/hr, intravenous, Continuous PRN, blood glucose less than 70 mg/dL, Starting on Fri07/02/23 at 1705, Use immediately following dextrose 50% or glucagon treatment for patients who are unconscious or NPO. Contact prescriber for additional orders. If blood glucose is not greater than 70 mg/dL after initial treatment, repeat treatment. dextrose 5 % and sodium chloride 0.9 % with KCl 40 mEq/L infusion 250 mL/hr, intravenous, Continuous PRN, for blood glucose 250 mg/dL or less, Starting on Fri07/02/23 at 1706, Once IV fluid is changed to dextrose-containing formulation, DO NOT change to [id number] IV fluid if blood glucose exceeds 250 mg/dL. dextrose 50 % in water (D50W) 50% solution 25 mL 25 mL, intravenous, As needed, low blood sugar, blood glucose less than 70 mg/dL and unconscious or NPO with IV access, Starting on Fri07/02/23 at 1705, Push over 1-3 minutes STAT. If conscious and not NPO, immediately follow with meal tray or high protein (7 grams) snack if tray not available. If NPO, initiate 5% dextrose in water at 100 mL/hr and contact prescriber for additional orders. If blood glucose is not greater than 70 mg/dL after initial treatment, repeat treatment. VESICANT (RED) Warning: HYPERTONIC solution. glucagon HCL injection 1 mg 1 mg, intramuscular, As needed, low blood sugar, blood glucose less than 70 mg/dL and unconscious or NPO without IV access., Starting on Fri07/02/23 at 1705, If conscious and not NPO, immediately follow with meal tray or high protein (7Grams) snack if tray not available. If NPO, initiate IV 5% Dextrose/Water at 100 mL/hr and contact prescriber for additional orders. If blood glucose is not greater than 70 mg/dL after initial treatment, repeat treatment. magnesium sulfate IVPB 2000 mg/50 mL in iso-osmotic water (40 mg/mL premix)(Linked Group 4) 2,000 mg, intravenous, at 25 mL/hr, Administer over 120 Minutes, As needed, for magnesium level 1.7 to 1.9 mg/dL or ionized magnesium level 0.45 to 0.5 mmol/L, Starting on Fri07/02/23 at 1728, Use premix solution. Default to ionized magnesium level in cases where patient has both magnesium and ionized magnesium results. If administered, check ionized magnesium (or total magnesium if ionized magnesium unavailable) level 4 hours after infusion. 1950 (New Bag - Provider: Evelyn Rhodes RN)2150 (Stop Bag - Provider: Evelyn Rhodes RN) 0359 (See Alternative - Provider: Evelyn Rhodes RN)0526 (See Alternative - Provider: Evelyn Rhodes RN)0706 (See Alternative - Provider: Attila Munguia RN)0759 (See Alternative - Provider: Félix Hamlin, RN) magnesium sulfate IVPB 4000 mg/100 mL in iso-osmotic water (40 mg/mL premix)(Linked Group 4) 4,000 mg, intravenous, at 25 mL/hr, Administer over 240 Minutes, As needed, for magnesium level 1.6 mg/mL or less, or ionized magnesium level 0.44 mmol/L or less, Starting on Fri07/02/23 at 1728, Use premix solution. Default to ionized magnesium level in cases where patient has both magnesium and ionized magnesium results. If administered, check ionized magnesium (or total magnesium if ionized magnesium unavailable) level 4 hours after infusion. 1950 (See Alternative - Provider: Evelyn Rhodes RN)2150 (See Alternative - Provider: Evelyn Rhodes RN) 0359 (New Bag - Provider: Evelyn Rhodes RN)0526 (Rate/Dose Verify - Provider: Evelyn Rhodes RN)0706 (Rate/Dose Verify - Provider: Attila Munguia RN)0759 (Stop Bag - Provider: Félix Hamlin RN) potassium chloride (K-TAB,KLOR-CON) CR tablet 20-50 mEq(Linked Group 5) 20-50 mEq, oral, As needed, for potassium replacement, Starting on Fri07/02/23 at 1728, Progress to oral potassium replacement when patient tolerating oral intake. If dose administered, recheck potassium level 4 hours after last dose. For potassium level 3.4 to 3.8 mmol/L and Serum Creatinine 1.2 or less=30 mEq. For potassium level 3.1 to 3.3 mmol/L and Serum Creatinine 1.2 or less=40 mEq. For potassium level 3 mmol/L or less and Serum Creatinine 1.2 or less=50 mEq. For potassium level 3.4 to 3.8 mmol/L and Serum Creatinine greater than 1.2=20 mEq. For potassium level 3.1 to 3.3 mmol/L and Serum Creatinine greater than 1.2=30 mEq. For potassium level 3 mmol/L or less and Serum Creatinine greater than 1.2=40 mEq. Do not crush or chew. 2140 (Given - Provider: Evelyn Rhodes RN) 0356 (Given - Provider: Evelyn Rhodes RN) potassium chloride (KAYCIEL) 20 mEq/15 mL solution 20-50 mEq(Linked Group 5) 20-50 mEq, oral, As needed, potassium replacement, Starting on Fri07/02/23 at 1728, Progress to oral potassium replacement when patient tolerating oral intake. If dose administered, recheck potassium level 4 hours after last dose. For potassium level 3.4 to 3.8 mmol/L and Serum Creatinine 1.2 or less=30 mEq (22.5mL). For potassium level 3.1 to 3.3 mmol/L and Serum Creatinine 1.2 or less=40 mEq (30mL). For potassium level 3 mmol/L or less and Serum Creatinine 1.2 or less=50 mEq (37.5mL). For potassium level 3.4 to 3.8 mmol/L and Serum Creatinine greater than 1.2=20 mEq (15mL). For potassium level 3.1 to 3.3 mmol/L and Serum Creatinine greater than 1.2=30 mEq (22.5mL). For potassium level 3 mmol/L or less and Serum Creatinine greater than 1.2=40 mEq (30mL). Must dilute before use - Mix in 3-8 ounces of water or juice before administration When administering in feeding tube, flush before and after per policy and monitor potassium levels 0 (See Alternative - Provider: Evelyn Rhodes, RN) 0356 (See Alternative - Provider: Evelyn Rhodes, NEW) potassium chloride IVPB 10 mEq/100 mL in water (0.1 mEq/mL premix)(Linked Group 6) 10 mEq, intravenous, at 100 mL/hr, Administer over 60 Minutes, As needed, for potassium replacement, Starting on Fri07/02/23 at 1728, Administer Potassium Chloride IVPB in 10 mEq increments. Maximum infusion rates: Central Line = 20 mEq/hour; Peripheral Line = 10 mEq/hour (10 mEq/100 mL). If dose administered, recheck potassium level 1 hour after infusion complete. For potassium level 3.4 to 3.8 mmol/L and Serum Creatinine 1.2 or less = 30 mEq For potassium level 3.1 to 3.3 mmol/L and Serum Creatinine 1.2 or less = 40 mEq For potassium level 3 mmol/L or less and Serum Creatinine 1.2 or less = 50 mEq For potassium level 3.4 to 3.8 mmol/L and Serum Creatinine greater than 1.2 = 20 mEq For potassium level 3.1 to 3.3 mmol/L and Serum Creatinine greater than 1.2 = 30 mEq For potassium level 3 mmol/L or less and Serum Creatinine greater than 1.2 = 40 mEq VESICANT (YELLOW) Infuse each 10 mEq over a minimum of 1 hour. 2316 (See Alternative - Provider: Evelyn Rhodes RN) 0014 (See Alternative - Provider: Evelyn Rhodes RN)0108 (See Alternative - Provider: Evelyn Rhodes RN)0133 (See Alternative - Provider: Evelyn Rhodes RN)0134 (See Alternative - Provider: Evelyn Rhodes RN)0234 (See Alternative - Provider: Evelyn Rhodes RN)0238 (See Alternative - Provider: Evelyn Rhodes RN)0338 (See Alternative - Provider: Evelyn Rhodes RN)0532 (See Alternative - Provider: Evelyn Rhodes RN)0536 (See Alternative - Provider: Evelyn Rhodes RN)0544 (See Alternative - Provider: Evelyn Rhodes RN)0627 (See Alternative - Provider: Evelyn Rhodes RN)0632 (See Alternative - Provider: Evelyn Rhodes RN)0636 (See Alternative - Provider: Evelyn Rhodes RN)0736 (See Alternative - Provider: Anurag Shipman RN)0829 (See Alternative - Provider: Anurag Shipman RN)0833 (See Alternative - Provider: Anurag Shipman RN)0836 (See Alternative - Provider: Anurag Shipman RN)0929 (See Alternative - Provider: Anurag Shipman RN)1004 (See Alternative - Provider: Anurag Shipman RN)1034 (See Alternative - Provider: Anurag Shipman RN)1034 (See Alternative - Provider: Anurag Shipman, RN)1104 (See Alternative - Provider: Anurag Shipman, RN)1112 (See Alternative - Provider: Anurag Shipman, RN)1142 (See Alternative - Provider: Anurag Shipman, RN)1153 (See Alternative - Provider: Anurag Shipman, RN)1223 (See Alternative - Provider: Anurag Shipman RN)1223 (See Alternative - Provider: Anurag Shipman RN)1253 (See Alternative - Provider: Anurag Shipman, RN)1520 (See Alternative - Provider: Anurag Shipman RN)1550 (See Alternative - Provider: Anurag Shipman, RN)1556 (See Alternative - Provider: Anurag Shipman, RN)1626 (See Alternative - Provider: Anurag Shipman, RN)1635 (See Alternative - Provider: Anurag Shipman RN)1705 (See Alternative - Provider: Anurag Shipman RN) potassium chloride IVPB 10 mEq/50 mL in water (0.2 mEq/mL premix)(Linked Group 6) 10 mEq, intravenous, at 50 mL/hr, Administer over 1 Hours, As needed, for potassium replacement, Starting on Fri07/02/23 at 1728, Administer Potassium Chloride IVPB in 10 mEq increments. Maximum infusion rates: Central Line = 20 mEq/hour. Administer via Central Line Only. If dose administered, recheck potassium level 1 hour after infusion complete. For potassium level 3.4 to 3.8 mmol/L and Serum Creatinine 1.2 or less = 30 mEq For potassium level 3.1 to 3.3 mmol/L and Serum Creatinine 1.2 or less = 40 mEq For potassium level 3 mmol/L or less and Serum Creatinine 1.2 or less = 50 mEq For potassium level 3.4 to 3.8 mmol/L and Serum Creatinine greater than 1.2 = 20 mEq For potassium level 3.1 to 3.3 mmol/L and Serum Creatinine greater than 1.2 = 30 mEq For potassium level 3 mmol/L or less and Serum Creatinine greater than 1.2 = 40 mEq VESICANT (YELLOW) 2316 (New Bag - Provider: Evelyn Rhodes RN) 0014 (Rate/Dose Verify - Provider: Evelyn Rhodes RN)0108 (Stop Bag - Provider: Evelyn Rhodes RN)0133 (Stop Bag - Provider: Evelyn Rhodes RN)0134 (New Bag - Provider: Evelyn Rhodes RN)0234 (Stop Bag - Provider: Evelyn Rhodes RN)0238 (New Bag - Provider: Evelyn Rhodes RN)0338 (Stop Bag - Provider: Evelyn Rhodes RN)0532 (New Bag - Provider: Evelyn Rhodes RN)0536 (Rate/Dose Verify - Provider: Evelyn Rhodes RN)0544 (Rate/Dose Verify - Provider: Evelyn Rhodes RN)0627 (Rate/Dose Verify - Provider: Evelyn Rhodes RN)0632 (Stop Bag - Provider: Evelyn Rhodes RN)0636 (New Bag - Provider: Evelyn Rhodes RN)0736 (Stop Bag - Provider: Anurag Shipman RN)0829 (New Bag - Provider: Anurag Shipman RN)0833 (Paused - Provider: Anurag Shipman RN)0836 (Restarted - Provider: Anurag Shipman RN)0929 (Stop Bag - Provider: Anurag Shipman RN)1004 (New Bag - Provider: Anurag Shipman RN - Comment: k 3.0, infusing through PICC, MD AWARE)1034 (Stop Bag - Provider: Anurag Shipman RN)1034 (New Bag - Provider: Anurag Shipman RN - Comment: K 3.0, infusing through PICC, md approved)1104 (Stop Bag - Provider: Anurag Shipman RN)1112 (New Bag - Provider: Anurag Shipman RN - Comment: k 3.0, infusing through PICC, MD AWARE)1142 (Stop Bag - Provider: Anurag Shipman RN)1153 (New Bag - Provider: Anurag Shipman RN - Comment: K 3, infusing through PICC, md approved)1223 (Stop Bag - Provider: Anurag Shipman RN)1223 (New Bag - Provider: Anurag Shipman RN - Comment: K 3, infusing through PICC, MD approved)1253 (Stop Bag - Provider: Anurag Shipman RN)1520 (New Bag - Provider: Anurag Shipman RN - Comment: approved, through PICC line)1550 (Stop Bag - Provider: Anurag Shipman RN)1556 (New Bag - Provider: Anurag Shipman RN - Comment: MD approved, through PICC line)1626 (Stop Bag - Provider: Anurag Shipman RN)1635 (New Bag - Provider: Anurag Shipman RN - Comment: approved, picc line)1705 (Stop Bag - Provider: Anurag Shipman RN) prochlorperazine (COMPAZINE) injection 5 mg 5 mg, intravenous, Every 6 hours PRN, nausea, vomiting, Starting on Ailin 07/03/23 at 1239, When administered via IV Push, do not exceed 5 mg per minute 1255 (Given - Provider: Anurag Shipman RN)1954 (Given - Provider: Evelyn Rhodes RN) 1242 (Given - Provider: Attila Munguia RN) sod phos di, mono-K phos mono (K-PHOS NEUTRAL) 250 mg tablet 2 tablet(Linked Group 7) 2 tablet, oral, As needed, for phosphorous level 2.3 mg/dL or less, Starting on Fri07/02/23 at 1728, If dose administered, recheck phosphorus level 4 hours after last dose. Look-alike/sound-alike medication - verify indication for use. Give with a full glass of water. 1154 (See Alternative - Provider: Anruag Shipman RN)1546 (See Alternative - Provider: Anurag Shipman RN)1549 (See Alternative - Provider: Anurag Shipman RN)1550 (See Alternative - Provider: Anurag Shipman RN)1553 (See Alternative - Provider: Anurag Shipman RN)1554 (See Alternative - Provider: Anurag Shipman RN)2200 (Given - Provider: Evelyn Rhodes RN) sodium chloride 0.9 % flush 10 mL(Linked Group 1) 10 mL, intravenous, As needed, line care, Starting on Fri07/02/23 at 1816, PICC line. Administer 10 mL to each lumen before and after each use. Administer 10 mL per lumen; 10 mL total (for single lumen flush) sodium chloride 0.9 % flush 20 mL(Linked Group 1) 20 mL, intravenous, As needed, line care, Starting on Fri07/02/23 at 1816, PICC line. Administer 20 mL to each lumen after lab draws, blood infusion, and meds known to precipitate. Administer 20 mL per lumen; 20 mL total (for single lumen flush) sodium chloride 0.9 % flush 20 mL(Linked Group 2) 20 mL, intravenous, As needed, line care, Starting on Fri07/02/23 at 1818, PICC line. Administer 10 mL to each lumen before and after each use. Administer 10 mL per lumen; 20 mL total (for double lumen flush) sodium chloride 0.9 % flush 40 mL(Linked Group 2) 40 mL, intravenous, As needed, line care, Starting on Fri07/02/23 at 1818, PICC line. Administer 20 mL to each lumen after lab draws, blood infusion, and meds known to precipitate. Administer 20 mL per lumen; 40 mL total (for double lumen flush) sodium chloride 0.9 % infusion 10 mL/hr, intravenous, Continuous PRN, to maintain patency of lines, Starting on Fri07/02/23 at 1728, Line #1 sodium chloride 0.9 % infusion 10 mL/hr, intravenous, Continuous PRN, to maintain patency of lines, Starting on Fri07/02/23 at 1728, Line #2 2314 (New Bag - Provider: Evelyn Rhodes RN) 0108 (Rate/Dose Verify - Provider: Evelyn Rhodes RN)0234 (Rate/Dose Verify - Provider: Evelyn Rhodes RN)0338 (Rate/Dose Verify - Provider: Evelyn Rhodes RN)0410 (Rate/Dose Verify - Provider: Evelyn Rhodes RN)0632 (Rate/Dose Verify - Provider: Anurag Shipman RN)0636 (Paused - Provider: Anurag Shipman RN)0736 (Restarted - Provider: Anurag Shipman RN)0824 (Paused - Provider: Anurag Shipman, RN)0824 (Paused - Provider: Anurag Shipman RN)0827 (Restarted - Provider: Anurag Shipman RN)0829 (Paused - Provider: Anurag Shipman, RN)0932 (Restarted - Provider: Anurag Shipman RN)1004 (Paused - Provider: Anurag Shipman, RN)1033 (Restarted - Provider: Anurag Shipman, RN)1034 (Paused - Provider: Anurag Shipman, RN)1104 (Restarted - Provider: Anurag Shipman, RN)1112 (Paused - Provider: Anurag Shipman, RN)1142 (Restarted - Provider: Anurag Shipman, RN)1153 (Paused - Provider: Anurag Shipman, RN)1222 (Restarted - Provider: Anurag Shipman, RN)1223 (Paused - Provider: Anurag Shipman, RN)1255 (Restarted - Provider: Anurag Shipman, RN)1520 (Paused - Provider: Anurag Shipman, RN)1550 (Restarted - Provider: Anurag Shipman, RN)1556 (Paused - Provider: Anurag Shipman, RN)1628 (Restarted - Provider: Anurag Shipman, RN)1635 (Paused - Provider: Anurag Shipman, RN)1710 (Restarted - Provider: Anurag Shipman, RN)1828 (Rate/Dose Verify - Provider: Anurag Shipman RN) 0237 (Paused - Provider: Evelyn Rhodes RN)0241 (Restarted - Provider: Evelyn Rhodes RN)0446 (New Bag - Provider: Evelyn Rhodes RN)0452 (Stop Bag - Provider: Evelyn Rhodes RN)1054 (Restarted - Provider: Félix Hamlin, RN)1117 (Rate/Dose Verify - Provider: Félix Hamlin, RN) sodium chloride 0.9 % infusion 10 mL/hr, intravenous, Continuous PRN, to maintain patency of lines, Starting on Fri07/02/23 at 1728, Line #3 1948 (New Bag - Provider: Evelyn Rhodes RN)2151 (Rate/Dose Verify - Provider: Evelyn Rhodes RN) 0449 (Rate/Dose Verify - Provider: Evelyn Rhodes RN)0536 (Rate/Dose Verify - Provider: Evelyn Rhodes RN)0544 (Rate/Dose Verify - Provider: Evelyn Rhodes RN)0627 (Rate/Dose Verify - Provider: Evelyn Rhodes RN)0833 (Paused - Provider: Anurag Shipman RN)0836 (Restarted - Provider: Anurag Shipman RN)1030 (Paused - Provider: Anurag Shipman RN)1130 (Restarted - Provider: Anurag Shipman RN)1154 (Paused - Provider: Anurag Shipman RN)1602 (Restarted - Provider: Anurag Shipman RN)1828 (Rate/Dose Verify - Provider: Anurag Shipman RN) 0241 (Rate/Dose Verify - Provider: Evelyn Rhodes RN)0359 (Stop Bag - Provider: Evelyn Rhodes RN)0800 (Restarted - Provider: Félix Hamlin RN)0900 (Paused - Provider: Félix Hamlin RN)0902 (Restarted - Provider: Félix Hamlin RN)0917 (Rate/Dose Verify - Provider: Félix Hamlin RN)0920 (Rate/Dose Verify - Provider: Félix Hamlin RN)1117 (Rate/Dose Verify - Provider: Félix Hamlin RN) sodium phosphate 20 mmol in sodium chloride 0.9 % 100 mL IVPB(Linked Group 7) 20 mmol, intravenous, at 26.7 mL/hr, Administer over 4 Hours, As needed, for phosphorous level 2.3 mg/dL or less, Starting on Fri07/02/23 at 1728, Administer over 4 hours via dedicated line(central line). If administered, recheck phosphorus level 4 hours after infusion complete. Infuse using central line access. 1154 (New Bag - Provider: Anurag Shipman RN)1546 (Paused - Provider: Anurag Shipman RN)1549 (Restarted - Provider: Anurag Shipman RN)1550 (Paused - Provider: Anurag Shipman, RN)1553 (Restarted - Provider: Anurag Shipman, NEW)1554 (Stop Bag - Provider: Anurag Shipman RN)2200 (See Alternative - Provider: Evelyn Rhodes, RN) sodium phosphate 20 mmol in sodium chloride 0.9 % 250 mL IVPB(Linked Group 7) 20 mmol, intravenous, at 42.8 mL/hr, Administer over 6 Hours, As needed, for phosphorous level 2.3 mg/dL or less, Starting on Fri07/02/23 at 1728, Administer over 6 hours via dedicated line (peripheral line). If administered, recheck phosphorus level 4 hours after infusion complete. 1154 (See Alternative - Provider: Anurag Shipman RN)1546 (See Alternative - Provider: Anurag Shipman RN)1549 (See Alternative - Provider: Anurag Shipman RN)1550 (See Alternative - Provider: Anurag Shipman RN)1553 (See Alternative - Provider: Anurag Shipman RN)1554 (See Alternative - Provider: Anurag Shipman RN)2200 (See Alternative - Provider: Evelyn Rhodes, RN) Linked Groups Order Group 1: Consult PICC nurse - Midline (CANCELED) Reason for consult? Insert PICC, Indication: Difficult Access, Number of Lumen(s): 2 Lumens, Reason for multiple lumens: critical care And sodium chloride 0.9 % flush 10 mLJump to med 10 mL, intravenous, Every 12 hours, First dose (after last modification) on Ailin 07/03/23 at 0530, PICC line. Administer 10 mL per lumen; 10 mL total (for single lumen flush) And sodium chloride 0.9 % flush 10 mLJump to med 10 mL, intravenous, As needed, line care, Starting on Fri07/02/23 at 1816, PICC line. Administer 10 mL to each lumen before and after each use. Administer 10 mL per lumen; 10 mL total (for single lumen flush) And sodium chloride 0.9 % flush 20 mLJump to med 20 mL, intravenous, As needed, line care, Starting on Fri07/02/23 at 1816, PICC line. Administer 20 mL to each lumen after lab draws, blood infusion, and meds known to precipitate. Administer 20 mL per lumen; 20 mL total (for single lumen flush) Group 2: Consult PICC nurse - Midline (COMPLETED) Reason for consult? Insert PICC, Indication: Difficult Access, Number of Lumen(s): 2 Lumens, Reason for multiple lumens: critical care And sodium chloride 0.9 % flush 20 mLJump to med 20 mL, intravenous, Every 12 hours, First dose on Fri07/02/23 at 1830, PICC line. Administer 10 mL per lumen; 20 mL total (for double lumen flush) And sodium chloride 0.9 % flush 20 mLJump to med 20 mL, intravenous, As needed, line care, Starting on Fri07/02/23 at 1818, PICC line. Administer 10 mL to each lumen before and after each use. Administer 10 mL per lumen; 20 mL total (for double lumen flush) And sodium chloride 0.9 % flush 40 mLJump to med 40 mL, intravenous, As needed, line care, Starting on Fri07/02/23 at 1818, PICC line. Administer 20 mL to each lumen after lab draws, blood infusion, and meds known to precipitate. Administer 20 mL per lumen; 40 mL total (for double lumen flush) Group 3: calcium gluconate IVPB 1000 mg/50 mL (20 mg/mL premix)Jump to med 1,000 mg, intravenous, at 50 mL/hr, Administer over 60 Minutes, As needed, for ionized calcium level 3.5 to 4.4 mg/dL, Starting on Fri07/02/23 at 1728, Recheck ionized calcium 6 hours after infusion. Hold calcium replacement for phosphorus greater than 5.5 mg/dL. VESICANT (RED) Or calcium gluconate IVPB 2000 mg/100 mL (20 mg/mL premix)Jump to med 2,000 mg, intravenous, at 100 mL/hr, Administer over 60 Minutes, As needed, for ionized calcium level 3 to 3.4 mg/dL, Starting on Fri07/02/23 at 1728, Recheck ionized calcium 6 hours after infusion. Hold calcium replacement for phosphorus greater than 5.5 mg/dL. VESICANT (RED) Or calcium gluconate 3,000 mg in sodium chloride 0.9 % 100 mL IVPBJump to med 3,000 mg, intravenous, at 130 mL/hr, Administer over 60 Minutes, As needed, for ionized calcium level less than 3 mg/dL, Starting on Fri07/02/23 at 1728, CALL PHYSICIAN if this dose is administered. Recheck ionized calcium 6 hours after infusion. Hold calcium replacement for phosphorus greater than 5.5 mg/dL. VESICANT (RED) Group 4: magnesium sulfate IVPB 2000 mg/50 mL in iso-osmotic water (40 mg/mL premix)Jump to med 2,000 mg, intravenous, at 25 mL/hr, Administer over 120 Minutes, As needed, for magnesium level 1.7 to 1.9 mg/dL or ionized magnesium level 0.45 to 0.5 mmol/L, Starting on Fri07/02/23 at 1728, Use premix solution. Default to ionized magnesium level in cases where patient has both magnesium and ionized magnesium results. If administered, check ionized magnesium (or total magnesium if ionized magnesium unavailable) level 4 hours after infusion. Or magnesium sulfate IVPB 4000 mg/100 mL in iso-osmotic water (40 mg/mL premix)Jump to med 4,000 mg, intravenous, at 25 mL/hr, Administer over 240 Minutes, As needed, for magnesium level 1.6 mg/mL or less, or ionized magnesium level 0.44 mmol/L or less, Starting on Fri07/02/23 at 1728, Use premix solution. Default to ionized magnesium level in cases where patient has both magnesium and ionized magnesium results. If administered, check ionized magnesium (or total magnesium if ionized magnesium unavailable) level 4 hours after infusion. Group 5: potassium chloride (K-TAB,KLOR-CON) CR tablet 20-50 mEqJump to med 20-50 mEq, oral, As needed, for potassium replacement, Starting on Fri07/02/23 at 1728, Progress to oral potassium replacement when patient tolerating oral intake. If dose administered, recheck potassium level 4 hours after last dose. For potassium level 3.4 to 3.8 mmol/L and Serum Creatinine 1.2 or less=30 mEq. For potassium level 3.1 to 3.3 mmol/L and Serum Creatinine 1.2 or less=40 mEq. For potassium level 3 mmol/L or less and Serum Creatinine 1.2 or less=50 mEq. For potassium level 3.4 to 3.8 mmol/L and Serum Creatinine greater than 1.2=20 mEq. For potassium level 3.1 to 3.3 mmol/L and Serum Creatinine greater than 1.2=30 mEq. For potassium level 3 mmol/L or less and Serum Creatinine greater than 1.2=40 mEq. Do not crush or chew. Or potassium chloride (KAYCIEL) 20 mEq/15 mL solution 20-50 mEqJump to med 20-50 mEq, oral, As needed, potassium replacement, Starting on Fri07/02/23 at 1728, Progress to oral potassium replacement when patient tolerating oral intake. If dose administered, recheck potassium level 4 hours after last dose. For potassium level 3.4 to 3.8 mmol/L and Serum Creatinine 1.2 or less=30 mEq (22.5mL). For potassium level 3.1 to 3.3 mmol/L and Serum Creatinine 1.2 or less=40 mEq (30mL). For potassium level 3 mmol/L or less and Serum Creatinine 1.2 or less=50 mEq (37.5mL). For potassium level 3.4 to 3.8 mmol/L and Serum Creatinine greater than 1.2=20 mEq (15mL). For potassium level 3.1 to 3.3 mmol/L and Serum Creatinine greater than 1.2=30 mEq (22.5mL). For potassium level 3 mmol/L or less and Serum Creatinine greater than 1.2=40 mEq (30mL). Must dilute before use - Mix in 3-8 ounces of water or juice before administration When administering in feeding tube, flush before and after per policy and monitor potassium levels Group 6: potassium chloride IVPB 10 mEq/50 mL in water (0.2 mEq/mL premix)Jump to med 10 mEq, intravenous, at 50 mL/hr, Administer over 1 Hours, As needed, for potassium replacement, Starting on Fri07/02/23 at 1728, Administer Potassium Chloride IVPB in 10 mEq increments. Maximum infusion rates: Central Line = 20 mEq/hour. Administer via Central Line Only. If dose administered, recheck potassium level 1 hour after infusion complete. For potassium level 3.4 to 3.8 mmol/L and Serum Creatinine 1.2 or less = 30 mEq For potassium level 3.1 to 3.3 mmol/L and Serum Creatinine 1.2 or less = 40 mEq For potassium level 3 mmol/L or less and Serum Creatinine 1.2 or less = 50 mEq For potassium level 3.4 to 3.8 mmol/L and Serum Creatinine greater than 1.2 = 20 mEq For potassium level 3.1 to 3.3 mmol/L and Serum Creatinine greater than 1.2 = 30 mEq For potassium level 3 mmol/L or less and Serum Creatinine greater than 1.2 = 40 mEq VESICANT (YELLOW) Or potassium chloride IVPB 10 mEq/100 mL in water (0.1 mEq/mL premix)Jump to med 10 mEq, intravenous, at 100 mL/hr, Administer over 60 Minutes, As needed, for potassium replacement, Starting on Fri07/02/23 at 1728, Administer Potassium Chloride IVPB in 10 mEq increments. Maximum infusion rates: Central Line = 20 mEq/hour; Peripheral Line = 10 mEq/hour (10 mEq/100 mL). If dose administered, recheck potassium level 1 hour after infusion complete. For potassium level 3.4 to 3.8 mmol/L and Serum Creatinine 1.2 or less = 30 mEq For potassium level 3.1 to 3.3 mmol/L and Serum Creatinine 1.2 or less = 40 mEq For potassium level 3 mmol/L or less and Serum Creatinine 1.2 or less = 50 mEq For potassium level 3.4 to 3.8 mmol/L and Serum Creatinine greater than 1.2 = 20 mEq For potassium level 3.1 to 3.3 mmol/L and Serum Creatinine greater than 1.2 = 30 mEq For potassium level 3 mmol/L or less and Serum Creatinine greater than 1.2 = 40 mEq VESICANT (YELLOW) Infuse each 10 mEq over a minimum of 1 hour. Group 7: sodium phosphate 20 mmol in sodium chloride 0.9 % 250 mL IVPBJump to med 20 mmol, intravenous, at 42.8 mL/hr, Administer over 6 Hours, As needed, for phosphorous level 2.3 mg/dL or less, Starting on Fri07/02/23 at 1728, Administer over 6 hours via dedicated line (peripheral line). If administered, recheck phosphorus level 4 hours after infusion complete. Or sodium phosphate 20 mmol in sodium chloride 0.9 % 100 mL IVPBJump to med 20 mmol, intravenous, at 26.7 mL/hr, Administer over 4 Hours, As needed, for phosphorous level 2.3 mg/dL or less, Starting on Fri07/02/23 at 1728, Administer over 4 hours via dedicated line(central line). If administered, recheck phosphorus level 4 hours after infusion complete. Infuse using central line access. Or sod phos di, mono-K phos mono (K-PHOS NEUTRAL) 250 mg tablet 2 tabletJump to med 2 tablet, oral, As needed, for phosphorous level 2.3 mg/dL or less, Starting on Fri07/02/23 at 1728, If dose administered, recheck phosphorus level 4 hours after last dose. Look-alike/sound-alike medication - verify indication for use. Give with a full glass of water. Care Teams (unrecognized sec tion and content) Print Graphic Designer Relationship Specialty Start Date End Date Arcadio Iglesias MD [address] [place] [address] PCP - General Family Medicine 06/10/23 FOR RECORDS PERTAINING TO PATIENTS WHO ARE OR HAVE BEEN ENROLLED IN A CHEMICAL DEPENDENCY/SUBSTANCEABUSE PROGRAM, SOME INFORMATION MAY BE OMITTED. This clinical summary was aggregated from multiple sources. Caution should be exercised in using it in the provision of clinical care. This summary normalizes information from multiple sources, and as a consequence, information in this document may materially change the coding, format and clinical context of patient data. In addition, data may be omitted in some cases. CLINICAL DECISIONS SHOULD BE BASED ON THE PRIMARY CLINICAL RECORDS. [employer] provides no warranty or guarantee of the accuracy or completeness of information in this document.
--- NOTE | 2023-07-13 16:00 | ECG_ITS ---
[facility] Test Date: 2023-07-13 Pat Name: RUDDY CORDOVA Department: Room: 2731 Gender: Female Classifier Tender: : 1995 Requested By: [id number] Order Number: [id number] Reading MD: ASTON OLVERA Measurements Intervals [place] Rate: 98 P: 70 MT: 144 QRS: 82 QRSD: 86 T: 80 QT: 380 QTc: 435 Interpretive Statements 1100 Sinus rhythm 4068 Nonspecific Twave abnormality 8102 Low QRS voltage in chest leads 9130 borderline ECG Electronically Signed On 07-14-2023 6:50:20 EST by ASTON OLVERA
[2023-07-13] MEDS: 0.9 % SODIUM CHLORIDE 1,000 ML 1000 ML IV ×3 (16:04→18:09)
[2023-07-13 16:12] LABS: Basophils Absolute Auto 0.1 10^3/uL (0.0-0.1); Basophils Percent Auto 0.5 % (0.2-2.0); Eosinophils Percent Auto 0.3 % (0.9-7.0); Hematocrit 38.4 % (36.0-48.0); Hemoglobin 11.5 g/dL (12.0-16.0); Immature Granulocytes Abs Auto 0.11 10^3/uL (0.00-0.03); Immature Granulocytes Pct Auto 0.9 % (0.0-0.5); Lymphocytes Percent Auto 16.3 % (20.5-60.0); Mean Corpuscular HGB Conc 29.9 g/dL (29.9-35.2); Mean Corpuscular Hemoglobin 25.4 pg (26.7-34.0); Mean Platelet Volume 8.8 fL (9.5-13.5); Monocytes Absolute Auto 0.4 10^3/uL (0.3-0.8); Monocytes Percent Auto 3.2 % (1.7-12.0); Neutrophils Absolute Auto 9.6 10^3/uL (1.4-6.5); Neutrophils Percent Auto 78.8 % (43.0-75.0); Platelet Count 455 10^3/uL (150-450); Red Blood Count 4.52 10^6/uL (4.20-5.40); White Blood Count 12.2 10^3/uL (4.0-11.0)
[2023-07-13 16:20] LABS: HCG Qualitative NEGATIVE (NEGATIVE)
[2023-07-13 16:23] LABS: Magnesium 1.7 mg/dL (1.8-2.4)
[2023-07-13 16:27] LABS: Alanine Aminotransferase 19 U/L (14-59); Albumin Globulin Ratio 0.8; Albumin Level 3.2 g/dL (3.4-5.0); Alkaline Phosphatase 107 U/L (46-116); Anion Gap 29.2; Aspartate Amino Transferase 10 U/L (15-37); BUN Creatinine Ratio 12.1; Bilirubin Total 0.3 mg/dL (0.2-1.0); Calcium 7.7 mg/dL (8.5-10.1); Carbon Dioxide 7.8 mmol/L (21.0-32.0); Chloride 95 mmol/L (98-107); Estimated GFR (African America >60 (>=60); Estimated GFR (Non-African Ame >60 (>=60); Globulin 4.1 g/dL; Glucose 482 mg/dL (74-106); Sodium 128 mmol/L (136-145); Total Protein 7.3 g/dL (6.4-8.2)
[2023-07-13 16:53] LABS: Glucometer 387 mg/dL (74-106)
[2023-07-13] MEDS: MAGNESIUM SULFATE IN WATER 2 GM/50 ML PREMIX IV (16:58)
[2023-07-13 17:08] LABS: Bilirubin Urine NEGATIVE (NEGATIVE); Blood Urine SMALL (NEGATIVE); Clarity Urine CLEAR (CLEAR); Color Urine LT. YELLOW (YELLOW); Glucose Urine UA >=1000 mg/dL (NEGATIVE); Ketones Urine >=80 mg/dL (NEGATIVE); Leukocyte Esterase Urine NEGATIVE (NEGATIVE); Nitrite Urine NEGATIVE (NEGATIVE); Protein Urine NEGATIVE (NEG/TRACE); Specific Gravity Urine 1.025 (1.005-1.025); Urobilinogen Urine 0.2 EU/dL (0.2-1.0); pH Urine 5.5 (5.0-9.0)
[2023-07-13 17:09] LABS: Urine Microscopic Indicated YES
[2023-07-13 17:16] LABS: Bacteria Urine TRACE #/HPF (NONE SEEN); Cast Seen? NONE SEEN #/LPF (NONE SEEN); Crystals Seen? None Seen #/HPF (None Seen); Mucus Urine NONE SEEN (NONE SEEN); Squamous Epithelial Cell Urine FEW #/LPF (NONE/RARE); Urine Culture Indicated NO
[2023-07-13 17:19] LABS: Amphetamine Screen Urine POSITIVE (NEGATIVE); Barbiturates Screen Urine NEGATIVE (NEGATIVE); Benzodiazepines Screen Urine NEGATIVE (NEGATIVE); Buprenorphine Screen Urine NEGATIVE (NEGATIVE); Cannabinoid Screen Urine NEGATIVE (NEGATIVE); Cocaine Screen Urine NEGATIVE (NEGATIVE); Methadone Screen Urine NEGATIVE (NEGATIVE); Methamphetamines Screen Urine POSITIVE (NEGATIVE); Opiate Screen Urine NEGATIVE (NEGATIVE); Oxycodone Screen Urine NEGATIVE (NEGATIVE); Phencyclidine Screen Urine NEGATIVE (NEGATIVE); Tricyclic Antidepressant Urine NEGATIVE (NEGATIVE)
--- NOTE | 2023-07-13 17:22 | ED_ITS ---
HPI - Weakness General Chief complaint: Weakness Stated complaint: Hyperglycemia Time Seen by Provider: 07/13/23 15:44 Source: patient Mode of arrival: ambulance Limitations: no limitations History of Present Illness HPI Narrative: History of type 1 diabetes and history of noncompliance presented to the ER for the second time within a month for generalized weakness the patient denies any other complaints. She mentioned also that she had a insulin pump and it ran out of medication. She does not know how long she has been having. no medication The patient denies any other complaints Related Data Allergies Allergy/AdvReac Type Severity Reaction Status Date / Time Penicillins Allergy Verified 07/02/23 10:22 Review of Systems ROS Status of ROS 10 or more systems reviewed and unremark able except as noted in history and below PFSH PFSH Social History Smoking status: Former smoker Exam Narrative Exam Narrative: Nurses notes and vital signs reviewed and patient is not hypoxic. General: Well-appearing and in no apparent distress. Skin: Warm, dry, no pallor noted. No rash. Head: Normocephalic, atraumatic. Neck: Supple, non-tender. Eye: Pupils are equal, round and EOMI. No scleral icterus. Ears, Nose, Mouth, and Throat: TM are clear, no nasal mucosal hypertrophy. Oral mucosa is moist, no posterior oropharynx erythema, uvula is mid-line Cardiovascular: Regular Rate and Rhythm without murmur, gallop or rub. Respiratory: No accessory muscle use or respiratory distress. Lungs are clear to auscultation, no wheezing, rales or rhonchi Chest Wall: no tenderness Back: No midline thoracic or lumbar vertebral tenderness. No CVA tenderness Musculoskeletal: normal ROM, no calf or popliteal tenderness, no lower extremity edema/swelling GI: Abdomen is soft, non-distended. Normal bowel sounds. No masses appreciated. No tenderness to palpation. No rebound, guarding, or rigidity noted. Neurological: A&O x4. No cranial nerve dysfunction observed. No truncal ataxia. Moves all extremities. Sensation intact. Psychiatric: Cooperative and interactive. Normal mood and affect. Constitutional Vital Signs, click to edit/add: Last Vital Signs Pulse 96 H 07/13/23 15:31 Resp 18 07/13/23 15:31 BP 151/100 H 07/13/23 15:31 Pulse Ox 100 07/13/23 15:31 Course Vital Signs Vital signs: Vital Signs Pulse Rate 96 H 07/13/23 15:31 Respiratory Rate 18 07/13/23 15:31 Blood Pressure 151/100 H 07/13/23 15:31 Pulse Oximetry 100 07/13/23 15:31 Pulse Rate 96 H 07/13/23 15:31 Respiratory Rate 18 07/13/23 15:31 Blood Pressure 151/100 H 07/13/23 15:31 Pulse Oximetry 100 07/13/23 15:31 MDM - Weakness MDM Narrative Medical decision making narrative: The patient EKG upon presentation showing sinus rhythm with a heart rate of [address] elevation or depression--- complaints of the patient although EKG the patient have no acute changes CBC and chemistry show that the patient have a picture for DKA with anion gap of 25 sodium was 128 and the potassium was 4 The patient was provided with 1 L of fluid was enough to drop her blood sugar from 482 almost 380 I did notice that the patient initially this month presented to us with a DKA picture in addition to her troponin was found to be elevated according to her when she presented to the other facility that we transferred her to the only did blood workup and EKGs there was no procedure done other than that. The patient right now had her case discussed with and he agreed on the above mentioned plan the patient will be started only on IV fluid here in the ER with 2 L of normal saline more will be given to the patient ,the patient will be started insulin when she goes up to the floor We put a [facility] Lab Data Labs: Lab Results 07/13/23 07/13/23 07/13/23 Range/Units 16:00 16:45 16:48 WBC 12.2 H (4.0-11.0) 10^3/uL RBC 4.52 (4.20-5.40) 10^6/uL Hgb 11.5 L (12.0-16.0) g/dL Hct 38.4 (36.0-48.0) % MCV 85.0 (81.0-99.0) fL MCH 25.4 L (26.7-34.0) pg MCHC 29.9 (29.9-35.2) g/dL RDW 14.0 (11.0-15.0) % Plt Count 455 H (150-450) 10^3/uL MPV 8.8 L (9.5-13.5) fL Neut % (Auto) 78.8 H (43.0-75.0) % Lymph % (Auto) 16.3 L (20.5-60.0) % [place] % (Auto) 3.2 (1.7-12.0) % Eos % (Auto) 0.3 L (0.9-7.0) % Baso % (Auto) 0.5 (0.2-2.0) % Neut # (Auto) 9.6 H (1.4-6.5) 10^3/uL Lymph # (Auto) 2.0 (1.2-3.8) 10^3/uL [place]borne # (Auto) 0.4 (0.3-0.8) 10^3/uL Eos # (Auto) 0.0 (0.0-0.7) 10^3/uL Baso # (Auto) 0.1 (0.0-0.1) 10^3/uL Abs Immat Gran (auto) 0.11 H (0.00-0.03) 10^3/uL Imm/Tot Granulo (auto) 0.9 H (0.0-0.5) % Sodium 128 L (136-145) mmol/L Potassium 4.0 (3.5-5.1) mmol/L Chloride 95 L (98-107) mmol/L Carbon Dioxide 7.8 L (21.0-32.0) mmol/L Anion Gap 29.2 BUN 12.0 (7.0-18.0) mg/dL Creatinine 0.99 (0.55-1.02) mg/dL Est GFR ( Amer) >60 (>=60) Est GFR (Non-Af Amer) >60 (>=60) BUN/Creatinine Ratio 12.1 Glucose 482 H (74-106) mg/dL Calcium 7.7 L (8.5-10.1) mg/dL Phosphorus 3.0 (2.6-4.7) mg/dL Magnesium 1.7 L (1.8-2.4) mg/dL Total Bilirubin 0.3 (0.2-1.0) mg/dL AST 10 L (15-37) U/L ALT 19 (14-59) U/L Alkaline Phosphatase 107 (46-116) U/L Total Protein 7.3 (6.4-8.2) g/dL Albumin 3.2 L (3.4-5.0) g/dL Globulin 4.1 g/dL Albumin/Globulin Ratio 0.8 Serum HCG, Qual Negative (NEGATIVE) Urine Color Lt. yellow (YELLOW) Urine Clarity Clear (CLEAR) Urine pH 5.5 (5.0-9.0) Ur Specific [place] 1.025 (1.005-1.025) Urine Protein Negative (NEG/TRACE) mg/dL Urine Glucose (UA) >=1000 A (NEGATIVE) mg/dL Urine Ketones >=80 A (NEGATIVE) mg/dL Urine Occult Blood Small A (NEGATIVE) Urine Nitrite Negative (NEGATIVE) Urine Bilirubin Negative (NEGATIVE) Urine Urobilinogen 0.2 (0.2-1.0) EU/dL Ur Leukocyte Esterase Negative (NEGATIVE) Urine RBC 2-5 A (0-2) #/HPF Urine WBC 2-5 A (NONE SEEN) #/HPF Ur Squamous Epith Cells Few A (NONE/RARE) #/LPF Urine Crystals None seen (None Seen) #/HPF Urine Bacteria Trace A (NONE SEEN) #/HPF Urine Casts None seen (NONE SEEN) #/LPF Urine Mucus None seen (NONE SEEN) Urine Yeast Seen A (NONE SEEN) Ur Culture Indicated? No Urine Opiates Screen Negative (NEGATIVE) Ur Buprenorphine Scrn Negative (NEGATIVE) Ur Oxycodone Screen Negative (NEGATIVE) Urine Methadone Screen Negative (NEGATIVE) Ur Barbiturates Screen Negative (NEGATIVE) U Tricyclic Antidepress Negative (NEGATIVE) Ur Phencyclidine Scrn Negative (NEGATIVE) Ur Amphetamines Screen Positive A (NEGATIVE) U Methamphetamines Scrn Positive A (NEGATIVE) U Benzodiazepines Scrn Negative (NEGATIVE) Urine Cocaine Screen Negative (NEGATIVE) U Cannabinoids Screen Negative (NEGATIVE) POC Glucose 387 H (74-106) mg/dL Discharge Plan Discharge Chief Complaint: Weakness Clinical Impression: Hypomagnesemia DKA, type 1 Qualifiers: Diabetes mellitus complication detail: without coma Qualified Code(s): E10.10 - Type 1 diabetes mellitus with ketoacidosis without coma Patient Disposition: Admitted As Inpatient Time of Disposition Decision: 17:25
[2023-07-13 17:35] LABS: PCO2 VBG 19.3 mmHg (40.0-52.0); pH VBG 7.064 (7.330-7.430)
[2023-07-13] MEDS: POTASSIUM CHLORIDE IN WATER 10 MEQ/100 ML PIGGYBACK 100 MEQ IV (18:13)
[2023-07-13 18:40] LABS: Lactate/Lactic Acid 0.7 mmol/L (0.4-2.0)
--- OUTSIDE RECORDS SUMMARY | 2023-07-13 19:30 | XMS_ITS | CCD ---
Author Name Unknown Address [address] [place] [address] Organization [facility] Care Team Providers Care Inclusion Internship Name Role Phone PHYSICIAN, DEFAULT Unavailable Unavailable [...] Unavailable Arcadio Iglesias MD Primary Care Provider LETTY YEE Admitting Unavailable LETTY YEE Attending [...] to adverse reactions to drug 3 Anaphylaxis [facility] (6 sources) Shellfish; Translations: [SHELLFISH DERIVED] Propensity to adverse reactions to drug 0 [facility] (3 sources) Penicillin; Translations: [penicillin] Drug Allergy [facility] (4 sources) Shellfish; Translations: [shellfish] Drug allergy (disorder) 4 [facility] (1 source) Shellfish-Derive d Products Propensity to adverse reactions to drug 1 [place], [place] (3 sources) Shellfish; Translations: [SHELLFISH CONTAINING PRODUCTS] Propensity to adverse reactions to drug 7 Anaphylaxis [facility] Medications Current Medications Medication Drug Class(es) Dates Sig (Normalized) Sig (Original) [id number] 200 actuat albuterol 0.09 mg/actuat metered dose [...] 0 Active take 1 capsule by mo [facility] once daily in the morning amphetamine-dextroamphetamine [...] 1215 DO NOT CRUSH OR CHEW. 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] Onset: 09-17-2022 Episodic Other [...] gap [Moles/Vol] 7 mmol/L Normal 5-15 [facility] Comment on above: Performed By: #### 6 873-4, 35552-8, 47616-0, CMP, 31542-0, HA1C, CBCA #### [facility] ([id number]) [address], [address] [place] [address] Calcium [Mass/Vol] 7.8 mg/dL Low 8.5-10.5 [facility] Comment on above: Performed By: #### 6 873-4, 97379-4, 20540-9, CMP, 57058-8, HA1C, CBCA #### [facility] ([id number]) [address], [address] [place] [address] Chloride [Moles/Vol] 98 mmol/L Normal 98-109 [facility] Comment on above: Performed By: #### 6 873-4, 18113-5, 81591-2, CMP, 73666-2, HA1C, CBCA #### [facility] ([id number]) [address], [address] [place] [address] CO2 [Moles/Vol] 27 mmol/L Normal 22-32 [facility] Comment on above: Performed By: #### 6 873-4, 01074-6, 93347-3, CMP, 03334-1, HA1C, CBCA #### [facility] ([id number]) [address], [address] [place] [address] Creatinine [Mass/Vol] 0.50 mg/dL Normal 0.40-1.00 [facility] Comment on above: Result Comment: METH OD TRACEABLE TO IDMS STANDARD Performed By: #### 6 873-4, 32175-9, 23873-6, CMP, 40795-7, HA1C, CBCA #### [facility] ([id number]) [address], [address] [place] [address] eGFR (CKD-EPI) NON-RACE DEPENDENT >90 Normal >59 [facility] Comment on above: Result Comment: Reported eGFR is based on the CKD-EPI 2020 equation that does not use a race coefficient. Performed By: #### 6 873-4, 49600-4, 70793-2, CMP, 02207-8, HA1C, CBCA #### [facility] ([id number]) [address], [address] [place] [address] Glucose [Mass/Vol] 290 mg/dL High 65-99 [facility] Comment on above: Performed By: #### 6 873-4, 85120-1, 50545-9, CMP, 14001-4, HA1C, CBCA #### [facility] ([id number]) [address], [address] [place] [address] Potassium [Moles/Vol] 3.7 mmol/L Normal 3.5-5.0 [facility] Comment on above: Performed By: #### 6 873-4, 05137-8, 99329-4, CMP, 04898-8, HA1C, CBCA #### [facility] ([id number]) [address], [address] [place] [address] Sodium [Moles/Vol] 132 mmol/L Low 134-146 [facility] Comment on above: Performed By: #### 6 873-4, 69317-2, , CMP, 28620-5, HA1C, CBCA #### [facility] ([id number]) [address], [address] [place] [address] Urea nitrogen [Mass/Vol] 2 mg/dL Low 5-23 [facility] Comment on above: Performed By: #### 6 873-4, 80945-5, , CMP, 94148-7, HA1C, CBCA #### [facility] ([id number]) [address], [address] [place] [address] Beta hydroxybutyrate [Moles/ Vol]on 07-04-2023 BetaHydroxybutyrate 0.38 mmol/L High 0.02-0.27 [facility] Comment on above: Performed By: #### 6 873-4, 83615-5, 08740-4, CMP, 94521-7, HA1C, CBCA #### [facility] ([id number]) [address], [address] [place] [address] BetaHydroxybutyrate <0.10 Normal 0.02-0.27 [facility] Comment on above: Performed By: #### 6 873-4, 70067-4, 41023-2, CMP, 87686-0, HA1C, CBCA #### [facility] ([id number]) [address], [address] [place] [address] BetaHydroxybutyrateon 2023 Beta hydroxybutyrate [Moles/Vol] mmol/L 0.02 - 0.27 mmol/L [facility] CBC AND AUTO DIFFon 07-04-19 ABSOLUTE BASOPHIL 0.0 X10E9/L Normal 0.0-0.2 [facility] Comment on above: Performed By: #### 6 873-4, 81377-8, 47695-5, CMP, 07545-5, HA1C, CBCA #### [facility] ([id number]) [address], [address] [place] [address] ABSOLUTE NEUTROPHIL 5.2 X10E9/L Normal 1.5-6.6 [facility] Comment on above: Performed By: #### 6 873-4, 66557-6, 68613-4, CMP, 62879-3, HA1C, CBCA #### [facility] ([id number]) [address] [address] Basophils/100 WBC (Bld) 0.7 % Normal P [facility] Comment on above: Performed By: #### 6 873-4, 04448-3, 76902-5, CMP, 02511-9, HA1C, CBCA #### [facility] ([id number]) [address], [address] [place] [address] Eosinophils (Bld) [#/Vol] 0.0 10*3/uL Normal 0.0-0.4 [facility] Comment on above: Performed By: #### 6 873-4, 47499-8, 47018-5, CMP, 47470-6, HA1C, CBCA #### [facility] ([id number]) [address], [address] [place] [address] Eosinophils/100 WBC (Bld) 0.6 % Normal [facility] Comment on above: Performed By: #### 6 873-4, 75964-1, 52708-5, CMP, 96505-2, HA1C, CBCA #### [facility] ([id number]) [address], [address] [place] [address] Erythrocyte distribution width (RBC) [Ratio] 15.3 % High 11.5-15.0 [facility] Comment on above: Performed By: #### 6 873-4, 00164-1, 94799-5, CMP, 12128-7, HA1C, CBCA #### [facility] ([id number]) [address] [address] [place] [address] Hematocrit (Bld) [Volume fraction] 36.1 % Normal 35-47 [facility] Comment on above: Performed By: #### 6 873-4, 91034-8, 12891-7, CMP, 46729-8, HA1C, CBCA #### [facility] ([id number]) [address], [facility] [address] [place] [address] Hemoglobin (Bld) [Mass/Vol] 11.9 g/dL Normal 11.7-15.5 [facility] Comment on above: Performed By: #### 6 873-4, 03435-2, 07488-1, CMP, 90290-1, HA1C, CBCA #### [facility] ([id number]) [address], [address] [place] [address] Lymphocytes (Bld) [#/Vol] 1.5 10*3/uL Normal 1.0-3.5 [facility] Comment on above: Performed By: #### 6 873-4, 96972-5, 21988-8, CMP, 76803-0, HA1C, CBCA #### [facility] ([id number]) [address], [address] [place] [address] Lymphocytes/100 WBC (Bld) 21.1 % Normal [facility] Comment on above: Performed By: #### 6 873-4, 25920-6, 04527-8, CMP, 81498-4, HA1C, CBCA #### [facility] ([id number]) [address], [address] [place] [address] MCH (RBC) [Entitic mass] 25.2 pg Low 27-34 [facility] Comment on above: Performed By: #### 6 873-4, 05754-6, 19226-2, CMP, 79955-0, HA1C, CBCA #### [facility] ([id number]) [address], [facility] [address] [place] [address] MCHC (RBC) [Mass/Vol] 33.0 g/dL Normal 32-36 [facility] Comment on above: Performed By: #### 6 873-4, 99360-4, 61017-6, CMP, 29866-5, HA1C, CBCA #### [facility] ([id number]) [address], [address] [place] [address] MCV (RBC) [Entitic vol] 76 fL Low 80-100 P [facility] Comment on above: Performed By: #### 6 873-4, 54290-3, 01684-8, CMP, 53453-7, HA1C, CBCA #### [facility] ([id number]) [address], [address] [place] [address] Monocytes (Bld) [#/Vol] 0.5 10*3/uL Normal 0-0.9 [facility] Comment on above: Performed By: #### 6 873-4, 32759-0, 16079-9, CMP, 35185-1, HA1C, CBCA #### [facility] ([id number]) [address], [address] [place] [address] Monocytes/100 WBC (Bld) 6.7 % Normal [facility] Comment on above: Performed By: #### 6 873-4, 06502-8, 78353-1, CMP, 44424-4, HA1C, CBCA #### [facility] ([id number]) [address], [address] [place] [address] Neutrophils/100 WBC (Bld) 70.9 % Normal [facility] Comment on above: Performed By: #### 6 873-4, 48962-5, 13702-1, CMP, 66975-2, HA1C, CBCA #### [facility] ([id number]) [address], [facility] [address] [place] [address] Platelet mean volume (Bld) [Entitic vol] 7.8 fL Normal 7-12 [facility] Comment on above: Performed By: #### 6 873-4, 26127-7, 39770-7, CMP, 28481-5, HA1C, CBCA #### [facility] ([id number]) [address], [address] [place] [address] Platelets (Bld) [#/Vol] 221 10*3/uL Normal 150-450 [facility] Comment on above: Performed By: #### 6 873-4, 86247-1, 91326-4, CMP, 90300-8, HA1C, CBCA #### [facility] ([id number]) [address], [address] [place] [address] RBC COUNT 4.72 X10E12/L Normal 3.80-5.20 [facility] Comment on above: Performed By: #### 6 873-4, 32087-5, 38895-0, CMP, 73185-2, HA1C, CBCA #### [facility] ([id number]) [address], [address] [place] [address] WBC (Bld) [#/Vol] 7.3 10*3/uL Normal 4.0-11.0 [facility] Comment on above: Performed By: #### 6 873-4, 95643-6, 42562-5, CMP, 46317-7, HA1C, CBCA #### [facility] ([id number]) [address], [address] [place] [address] ABSOLUTE BASOPHIL 0.0 X10E9/L Normal 0.0-0.2 [facility] Comment on above: Performed By: #### 6 873-4, 82114-1, 53171-8, CMP, 61985-9, HA1C, CBCA #### [facility] ([id number]) [address], [address] [place] [address] ABSOLUTE NEUTROPHIL 5.2 X10E9/L Normal 1.5-6.6 [facility] Comment on above: Performed By: #### 6 873-4, 68570-3, 46435-6, CMP, 89144-8, HA1C, CBCA #### [facility] ([id number]) [address], [address] [place] [address] Basophils/100 WBC (Bld) 0.3 % Normal [facility] Comment on above: Performed By: #### 6 873-4, 26007-0, 46845-0, CMP, 83411-9, HA1C, CBCA #### [facility] ([id number]) [address], [address] [place] [address] Eosinophils (Bld) [#/Vol] 0.0 10*3/uL Normal 0.0-0.4 [facility] Comment on above: Performed By: #### 6 873-4, 48853-3, 05371-4, CMP, 34497-1, HA1C, CBCA #### [facility] ([id number]) [address], [address] [place] [address] Eosinophils/100 WBC (Bld) 0.2 % Normal [facility] Comment on above: Performed By: #### 6 873-4, 28876-5, 03969-5, CMP, 45018-7, HA1C, CBCA #### [facility] ([id number]) [address] [address] Erythrocyte distribution width (RBC) [Ratio] 15.4 % High 11.5-15.0 [facility] Comment on above: Performed By: #### 6 873-4, 85683-4, 91170-1, CMP, 00900-6, HA1C, CBCA #### [facility] ([id number]) [address] [address] Hematocrit (Bld) [Volume fraction] 30.9 % Low 35-47 [facility] Comment on above: Performed By: #### 6 873-4, 01631-9, 83863-1, CMP, 03176-3, HA1C, CBCA #### [facility] ([id number]) [address] [address] Hemoglobin (Bld) [Mass/Vol] 10.4 g/dL Low 11.7-15.5 [facility] Comment on above: Performed By: #### 6 873-4, 53901-1, 78422-6, CMP, 75404-3, HA1C, CBCA #### [facility] ([id number]) [address] [address] Lymphocytes (Bld) [#/Vol] 1.7 10*3/uL Normal 1.0-3.5 [facility] Comment on above: Performed By: #### 6 873-4, 63626-1, 21674-3, CMP, 03572-4, HA1C, CBCA #### [facility] ([id number]) [address] [address] Lymphocytes/100 WBC (Bld) 22.6 % Normal [facility] Comment on above: Performed By: #### 6 873-4, 38844-6, 99156-3, CMP, 98512-7, HA1C, CBCA #### [facility] ([id number]) [address], [address] [place] [address] MCH (RBC) [Entitic mass] 25.8 pg Low 27-34 [facility] Comment on above: Performed By: #### 6 873-4, 67943-9, 17253-4, CMP, 59429-2, HA1C, CBCA #### [facility] ([id number]) [address], [facility] [address] [place] [address] MCHC (RBC) [Mass/Vol] 33.7 g/dL Normal 32-36 [facility] Comment on above: Performed By: #### 6 873-4, 09937-3, 19368-7, CMP, 07810-0, HA1C, CBCA #### [facility] ([id number]) [address], [address] [place] [address] MCV (RBC) [Entitic vol] 77 fL Low 80-100 P [facility] Comment on above: Performed By: #### 6 873-4, 46266-8, 08939-3, CMP, 46040-1, HA1C, CBCA #### [facility] ([id number]) [address], [address] [place] [address] Monocytes (Bld) [#/Vol] 0.6 10*3/uL Normal 0-0.9 [facility] Comment on above: Performed By: #### 6 873-4, 87302-0, 47097-1, CMP, 31725-8, HA1C, CBCA #### [facility] ([id number]) [address], [address] [place] [address] Monocytes/100 WBC (Bld) 7.9 % Normal P [facility] Comment on above: Performed By: #### 6 873-4, 88114-0, 87542-8, CMP, 16993-7, HA1C, CBCA #### [facility] ([id number]) [address], [address] [place] [address] Neutrophils/100 WBC (Bld) 69.0 % Normal [facility] Comment on above: Performed By: #### 6 873-4, 57326-5, 56575-4, CMP, 93769-4, HA1C, CBCA #### [facility] ([id number]) [address], [facility] [address] [place] [address] Platelet mean volume (Bld) [Entitic vol] 7.6 fL Normal 7-12 [facility] Comment on above: Performed By: #### 6 873-4, 70362-2, 91170-6, CMP, 59677-5, HA1C, CBCA #### [facility] ([id number]) [address], [address] [place] [address] Platelets (Bld) [#/Vol] 221 10*3/uL Normal 150-450 [facility] Comment on above: Performed By: #### 6 873-4, 59056-2, 84862-4, CMP, 04110-7, HA1C, CBCA #### [facility] ([id number]) [address], [address] [place] [address] RBC COUNT 4.03 X10E12/L Normal 3.80-5.20 [facility] Comment on above: Performed By: #### 6 873-4, 97044-5, 99977-7, CMP, 59616-0, HA1C, CBCA #### [facility] ([id number]) [address], [address] [place] [address] WBC (Bld) [#/Vol] 7.6 10*3/uL Normal 4.0-11.0 [facility] Comment on above: Performed By: #### 6 873-4, 44724-6, 91736-1, CMP, 64997-8, HA1C, CBCA #### [facility] ([id number]) [address] [facility], [address] [place] [address] CBC auto differentialon Basophils (Bld) [#/Vol] 0.0 10*3/uL [facility] Basophils/100 WBC (Bld) 0.3 % P [facility] Eosinophils (Bld) [#/Vol] 0.0 10*3/uL [...] and review of laboratory results Abnormal [facility] Lymphocytes (Bld) [#/Vol] 1.7 10*3/uL [facility] Lymphocytes/100 WBC (Bld) 22.6 % [facility] MCH (RBC) [Entitic mass] 25.8 pg Low 27 - 34 pg [facility] MCHC (RBC) [Mass/Vol] 33.7 g/dL 32 - 36 g/dL P [facility] MCV (RBC) [Entitic vol] 77 fL Low 80 - 100 fL [facility] Monocytes (Bld) [#/Vol] 0.6 10*3/uL [facility] Monocytes/100 WBC (Bld) 7.9 % [facility] Neutrophils (Bld) [#/Vol] 5.2 10*3/uL [facility] Neutrophils/100 WBC (Bld) 69.0 % [facility] Platelet mean volume (Bld) [Entitic vol] 7.6 fL 7 - 12 fL [facility] Platelets (Bld) [#/Vol] 221 10*3/uL [facility] RBC (Bld) [#/Vol] 4.03 10*6/uL [facility] WBC corrected for nucl RBC Auto (Bld) [#/Vol] 7.6 [facility] COMPREHENSIVE METABOLIC PANE [employer] 07-04-2023 Albumin [Mass/Vol] 3.0 g/dL Low 3.2-5.3 [facility] Comment on above: Performed By: #### 6 873-4, 03509-7, 49324-6, CMP, 73146-0, HA1C, CBCA #### [facility] ([id number]) [address], [address] [place] [address] ALP [Catalytic activity/Vol] 68 U/L Normal 39-130 [facility] Comment on above: Performed By: #### 6 873-4, 01577-7, 97651-3, CMP, 08229-6, HA1C, CBCA #### [facility] ([id number]) [address], [address] [place] [address] ALT [Catalytic activity/Vol] 14 U/L Normal 0-31 [facility] Comment on above: Performed By: #### 6 873-4, 38070-8, 76062-5, CMP, 21160-6, HA1C, CBCA #### [facility] ([id number]) [address], [address] [place] [address] Anion gap [Moles/Vol] 5 mmol/L Normal 5-15 [facility] Comment on above: Performed By: #### 6 873-4, 26804-9, 48365-7, CMP, 46638-3, HA1C, CBCA #### [facility] ([id number]) [address], [address] [place] [address] AST [Catalytic activity/Vol] 17 U/L Normal 0-41 [facility] Comment on above: Performed By: #### 6 873-4, 28255-2, 62452-1, CMP, 26991-6, HA1C, CBCA #### [facility] ([id number]) [address], [address] [place] [address] Bilirubin [Mass/Vol] 0.3 mg/dL Normal 0.3-1.2 [facility] Comment on above: Performed By: #### 6 873-4, 67364-0, 96518-0, CMP, 36265-9, HA1C, CBCA #### [facility] ([id number]) [address], [address] [place] [address] Calcium [Mass/Vol] 7.4 mg/dL Low 8.5-10.5 [facility] Comment on above: Performed By: #### 6 873-4, 59637-1, 38084-2, CMP, 49418-9, HA1C, CBCA #### [facility] ([id number]) [address], [address] [place] [address] Chloride [Moles/Vol] 113 mmol/L High 98-109 [facility] Comment on above: Performed By: #### 6 873-4, 88695-0, 49603-2, CMP, 21418-4, HA1C, CBCA #### [facility] ([id number]) [address], [address] [place] [address] CO2 [Moles/Vol] 23 mmol/L Normal 22-32 [facility] Comment on above: Performed By: #### 6 873-4, 52113-3, 19353-8, CMP, 29044-6, HA1C, CBCA #### [facility] ([id number]) [address], [address] [place] [address] Creatinine [Mass/Vol] 0.36 mg/dL Low 0.40-1.00 [facility] Comment on above: Result Comment: METH OD TRACEABLE TO IDMS STANDARD Performed By: #### 6 873-4, 66133-9, 56379-3, CMP, 76318-8, HA1C, CBCA #### [facility] ([id number]) [address], [address] [place] [address] eGFR (CKD-EPI) NON-RACE DEPENDENT >90 Normal >59 [facility] Comment on above: Result Comment: Reported eGFR is based on the CKD-EPI 1 equation that does not use a race coefficient. Performed By: #### 6 873-4, 44572-9, 77565-9, CMP, 57307-7, HA1C, CBCA #### [facility] ([id number]) [address], [address] [place] [address] Glucose [Mass/Vol] 89 mg/dL Normal 65-99 [facility] Comment on above: Performed By: #### 6 873-4, 69466-7, 41122-8, CMP, 07765-8, HA1C, CBCA #### [facility] ([id number]) [address], [address] [place] [address] Potassium [Moles/Vol] 3.4 mmol/L Low 3.5-5.0 [facility] Comment on above: Performed By: #### 6 873-4, 26031-0, 89833-6, CMP, 41524-1, HA1C, CBCA #### [facility] ([id number]) [address], [address] [place] [address] Protein [Mass/Vol] 5.0 g/dL Low 6.0-8.0 [facility] Comment on above: Performed By: #### 6 873-4, 93549-9, 81220-5, CMP, 58109-2, HA1C, CBCA #### [facility] ([id number]) [address], [address] [place] [address] Sodium [Moles/Vol] 141 mmol/L Normal 134-146 [facility] Comment on above: Performed By: #### 6 873-4, 47813-4, 41962-6, CMP, 67613-3, HA1C, CBCA #### [facility] ([id number]) [address], [address] [place] [address] Urea nitrogen [Mass/Vol] 2 mg/dL Low 5-23 [facility] Comment on above: Performed By: #### 6 873-4, 79441-5, 00153-2, CMP, 00700-3, HA1C, CBCA #### [facility] ([id number]) [address], [address] [place] [address] Calcium.ionized (Bld) [Mass/ Vol]on 07-04-2023 IONIZED CALCIUM 4.5 mg/dL Normal 4.5-5.3 [facility] Comment on above: Performed By: #### 6 873-4, 63799-5, 14644-1, CMP, 80820-3, HA1C, CBCA #### [facility] ([id number]) [address], [address] [place] [address] [facility] Comprehensive metabolic pane galileo 07-04-2023 Albumin [Mass/Vol] 3.0 g/dL Low 3.2 - 5.3 g/dL [facility] ALP [Catalytic activity/Vol] 68 U/L 39 - 130 U/L [facility] ALT No additional P-5'-P [Catalytic activity/Vol] 14 U/L 0 - 31 U/L [facility] Anion gap [Moles/Vol] 5 mmol/L 5 - 15 mmol/L [facility] AST [Catalytic activity/Vol] 17 U/L 0 - 41 U/L [facility] Bilirubin [Mass/Vol] 0.3 mg/dL 0.3 - 1 .2 mg/dL [facility] Calcium [Mass/Vol] 7.4 mg/dL Low 8.5 - 10. 5 mg/dL [facility] Chloride [Moles/Vol] 113 mmol/L High 98 - 10 9 mmol/L [facility] CO2 [Moles/Vol] 23 mmol/L 22 - 32 mmol/L [facility] Creatinine [Mass/Vol] 0.36 mg/dL Low 0.40 - 1.00 mg/dL [facility] Comment on above: METHOD TRACEABLE TO IDVT STANDARD eGFR (CKD-EPI)non-race dependent - PINF [facility] Comment on above: Reported eGFR is based on the CKD-EPI 2020 equation that does not use a race coefficient. Glucose [Mass/Vol] 89 mg/dL 65 - 99 mg/dL [facility] Potassium [Moles/Vol] 3.4 mmol/L Low 3.5 - 5.0 mmol/L [facility] Protein [Mass/Vol] 5.0 g/dL Low 6.0 - 8.0 g/dL [facility] Sodium [Moles/Vol] 141 mmol/L 134 - 146 mmol/L [facility] Urea nitrogen [Mass/Vol] 2 mg/dL Low 5 - 23 mg/d L [facility] ELECTROLYTESon 07-04-2023 Anion gap [Moles/Vol] 4 mmol/L Low 5-15 [facility] Comment on above: Performed By: #### 6 873-4, 26893-1, 62234-8, CMP, 19796-1, HA1C, CBCA #### [facility] ([id number]) [address], [address] [place] [address] Chloride [Moles/Vol] 108 mmol/L Normal 98-109 [facility] Comment on above: Performed By: #### 6 873-4, 46024-2, 65737-1, CMP, 78837-2, HA1C, CBCA #### [facility] ([id number]) [address], [address] [place] [address] CO2 [Moles/Vol] 26 mmol/L Normal 22-32 [facility] Comment on above: Performed By: #### 6 873-4, 79835-5, 84093-9, CMP, 32453-3, HA1C, CBCA #### [facility] ([id number]) [address], [address] [place] [address] Potassium [Moles/Vol] 3.9 mmol/L Normal 3.5-5.0 [facility] Comment on above: Performed By: #### 6 873-4, 72992-1, 40306-8, CMP, 60484-8, HA1C, CBCA #### [facility] ([id number]) [address], [address] [place] [address] Sodium [Moles/Vol] 138 mmol/L Normal 134-146 [facility] Comment on above: Performed By: #### 6 873-4, 29496-3, 08386-1, CMP, 54577-9, HA1C, CBCA #### [facility] ([id number]) [address] [address] [place] [address] Anion gap [Moles/Vol] 7 mmol/L Normal 5-15 [facility] Comment on above: Performed By: #### 6 873-4, 37098-1, 55421-0, CMP, 78239-9, HA1C, CBCA #### [facility] ([id number]) [address], [address] [place] [address] Chloride [Moles/Vol] 109 mmol/L Normal 98-109 [facility] Comment on above: Performed By: #### 6 873-4, 29496-7, 03318-4, CMP, 98698-5, HA1C, CBCA #### [facility] ([id number]) [address], [address] [place] [address] CO2 [Moles/Vol] 21 mmol/L Low 22-32 [facility] Comment on above: Performed By: #### 6 873-4, 05564-9, 05168-9, CMP, 35000-8, HA1C, CBCA #### [facility] ([id number]) [address], [address] [place] [address] Potassium [Moles/Vol] 3.3 mmol/L Low 3.5-5.0 [facility] Comment on above: Performed By: #### 6 873-4, 34078-7, 20254-3, CMP, 94614-5, HA1C, CBCA #### [facility] ([id number]) [address], [address] [place] [address] Sodium [Moles/Vol] 137 mmol/L Normal 134-146 [facility] Comment on above: Performed By: #### 6 873-4, 24040-1, 44227-7, [facility], 04617-2, HA1C, CBCA #### [facility] ([id number]) [address], [address] [place] [address] ETHANOLon 07-04-2023 Ethanol [Mass/Vol] mg/dL Normal 0.00-0.08 [facility] Comment on above: Result Comment: This report is intended for use in clinical monitoring or management of patients. Performed By: #### 6 873-4, 80115-2, 35815-7, [facility], 77143-4, HA1C, CBCA #### [facility] ([id number]) [address], [address] [place] [address] Electrolyte panelon 07-04-19 Anion gap [Moles/Vol] 7 mmol/L 5 - 15 mmol/L [facility] Chloride [Moles/Vol] 109 mmol/L 98 - 10 9 mmol/L [facility] CO2 [Moles/Vol] 21 mmol/L Low 22 - 32 mmol/L [facility] Interpretation and review of laboratory results Abnormal [facility] Potassium [Moles/Vol] 3.3 mmol/L Low 3.5 - 5.0 mmol/L [facility] Sodium [Moles/Vol] 137 mmol/L 134 - 146 mmol/L [facility] Glucose Glucometer (BldC) [M ass/Vol]on 07-04-2023 Glucose [Mass/Vol] 203 mg/dL High 65-99 [facility] Glucose [Mass/Vol] 173 mg/dL High 65-99 [facility] Glucose [Mass/Vol] 140 mg/dL High 65 - 99 mg/dL [facility] Glucose [Mass/Vol] 173 mg/dL High 65 - 99 mg/dL [facility] Interpretation and review of laboratory results Abnormal [facility] Glucose [Mass/Vol] 140 mg/dL High 65-99 [facility] [place] [facility] Glucose [Mass/Vol] 156 mg/dL High 65-99 [facility] [place] [facility] Glucose [Mass/Vol] 156 mg/dL High 65 - 99 mg/dL [facility] Interpretation and review of laboratory results Abnormal [facility] Glucose [Mass/Vol] 139 mg/dL High 65 - 99 mg/dL [facility] Interpretation and review of laboratory results Abnormal [facility] Glucose [Mass/Vol] 139 mg/dL High 65-99 [facility] [place] [facility] Glucose [Mass/Vol] 134 mg/dL High 65-99 [facility] [place] [facility] Glucose [Mass/Vol] 147 mg/dL High 65-99 [facility] [place] [facility] Glucose [Mass/Vol] 134 mg/dL High 65 - 99 mg/dL [facility] Interpretation and review of laboratory results Abnormal [facility] Glucose [Mass/Vol] 86 mg/dL Normal 65-99 [facility] [place] [facility] Glucose [Mass/Vol] 147 mg/dL High 65 - 99 mg/dL [facility] Interpretation and review of laboratory results Abnormal [facility] Glucose [Mass/Vol] 106 mg/dL High 65-99 [facility] [place] [facility] Glucose [Mass/Vol] 86 mg/dL 65 - 99 mg/dL [facility] Glucose [Mass/Vol] 163 mg/dL High 65-99 [facility] [place] [facility] Glucose [Mass/Vol] 235 mg/dL High 65-99 [facility] [place] [facility] Glucose [Mass/Vol] 106 mg/dL High 65 - 99 mg/dL [facility] Interpretation and review of laboratory results Abnormal [facility] Glucose [Mass/Vol] 163 mg/dL High 65 - 99 mg/dL [facility] Interpretation and review of laboratory results Abnormal [facility] Glucose [Mass/Vol] 238 mg/dL High 65-99 [facility] Glucose [Mass/Vol] 235 mg/dL High 65 - 99 mg/dL [facility] Interpretation and review of laboratory results Abnormal [facility] Glucose [Mass/Vol] 265 mg/dL High 65-99 [facility] Ionized calciumon 07-04-2023 Calcium.ionized (Bld) [Mass/Vol] 4.5 mg/dL 4.5 - 5.3 mg/dL [facility] Ionized magnesiumon 07-04-19 Magnesium Ionized ISE (Bld) [Moles/Vol] 0.72 mmol/L 0.45 - 0.74 mmol/L [facility] Comment on above: NEW REFERENCE RANGE LIVER PANELon 07-04-2023 Albumin [Mass/Vol] 3.6 g/dL Normal 3.2-5.3 [facility] Comment on above: Performed By: #### 6 873-4, 91394-3, 48451-7, CMP, 60751-0, HA1C, CBCA #### [facility] ([id number]) [address], [address] [place] [address] ALP [Catalytic activity/Vol] 82 U/L Normal 39-130 [facility] Comment on above: Performed By: #### 6 873-4, 13784-7, 87812-0, CMP, 71842-0, HA1C, CBCA #### [facility] ([id number]) [address], [address] [place] [address] ALT [Catalytic activity/Vol] 18 U/L Normal 0-31 [facility] Comment on above: Performed By: #### 6 873-4, 21285-0, 83674-7, CMP, 52987-1, HA1C, CBCA #### [facility] ([id number]) [address], [address] [place] [address] AST [Catalytic activity/Vol] 18 U/L Normal 0-41 [facility] Comment on above: Performed By: #### 6 873-4, 30849-5, 82802-1, CMP, 54461-8, HA1C, CBCA #### [facility] ([id number]) [address], [address] [place] [address] Bilirubin [Mass/Vol] 0.5 mg/dL Normal 0.3-1.2 [facility] Comment on above: Performed By: #### 6 873-4, 02547-3, 27696-4, CMP, 63099-2, HA1C, CBCA #### [facility] ([id number]) [address] [facility] [facility] [place] [address] Bilirubin.direct [Mass/Vol] 0.0 mg/dL Normal 0.0-0.4 [facility] Comment on above: Performed By: #### 6 873-4, 49817-6, 67179-6, CMP, 43490-8, HA1C, CBCA #### [facility] ([id number]) [address] [facility] [facility] [place] [address] Protein [Mass/Vol] 6.4 g/dL Normal 6.0-8.0 [facility] Comment on above: Performed By: #### 6 873-4, 11674-5, 26521-3, CMP, 35807-9, HA1C, CBCA #### [facility] ([id number]) [address], [address] [place] [address] Laboratory - Chemistry and C hemistry - challengeon 07-04-2023 Phosphate [Mass/Vol] 2.0 mg/dL Low 2.4-4.9 [facility] Comment on above: Performed By: #### 6 873-4, 63590-6, 73436-5, CMP, 81553-8, HA1C, CBCA #### [facility] ([id number]) [address] [facility] [facility] [facility], [address] [place] [address] MAGNESIUMon 07-04-2023 Magnesium [Mass/Vol] 1.5 mg/dL Low 1.8-2.6 [facility] Comment on above: Performed By: #### 6 873-4, 18176-8, 83438-6, CMP, 42468-0, HA1C, CBCA #### [facility] ([id number]) [address], [address] [place] [address] Magnesiumon 07-04-2023 Magnesium [Mass/Vol] 1.5 mg/dL Low 1.8 - 2 .6 mg/dL [facility] Magnesium Ionized ISE (Bld) [Moles/Vol]on 07-04-2023 Magnesium [Moles/Vol] 0.72 mmol/L Normal 0.45-0.74 [facility] Comment on above: Result Comment: NEW REFERENCE RANGE Performed By: #### 6 873-4, 86088-1, 05248-8, CMP, 54852-9, HA1C, CBCA #### [facility] ([id number]) [address], [address] [place] [address] [facility] No Panel Informationon 07-04 Interpretation and review of laboratory results Abnormal [facility] Interpretation and review of laboratory results Abnormal [facility] PHOSPHORUSon 07-04-2023 Phosphate [Mass/Vol] 1.5 mg/dL Low 2.4-4.9 [facility] Comment on above: Performed By: #### 6 873-4, 30648-8, 55439-3, CMP, 40159-4, HA1C, CBCA #### [facility] ([id number]) [address], [address] [place] [address] Phosphate [Mass/Vol] mg/dL Critically low 2.4-4.9 [facility] Comment on above: Performed By: #### 6 873-4, 89217-7, 61813-5, CMP, 07013-4, HA1C, CBCA #### [facility] ([id number]) [address], [address] [place] [address] Phosphate [Mass/Vol] 1.1 mg/dL Low 2.4-4.9 [facility] Comment on above: Performed By: #### 6 873-4, 02378-7, 71282-3, CMP, 52289-1, HA1C, CBCA #### [facility] ([id number]) [address] [place] [address] Phosphate [Mass/Vol]on 07-04 Interpretation and review of laboratory results Abnormal [facility] Interpretation and review of laboratory results Abnormal [facility] Phosphoruson 07-04-2023 Phosphate [Mass/Vol] mg/dL Critically low 2.4 - 4.9 mg/dL [facility] Phosphate [Mass/Vol] 1.1 mg/dL Low 2.4 - 4 .9 mg/dL [facility] VENOUS BLOOD GASon CAMI'S TEST Normal [facility] Comment on above: Performed By: #### 6 873-4, 13101-5, 83621-7, CMP, 23229-3, HA1C, CBCA #### [facility] ([id number]) [address], [address] [place] [address] Base excess Calc (Bld) [Moles/Vol] 2.0 mmol/L Normal 0.0-2.0 [facility] Comment on above: Performed By: #### 6 873-4, 14480-1, 14632-4, CMP, 12751-9, HA1C, CBCA #### [facility] ([id number]) [address], [address] [place] [address] Body temperature 98.6 [degF] Normal 37.0 [facility] Comment on above: Performed By: #### 6 873-4, 91670-4, 73194-9, CMP, 66485-0, HA1C, CBCA #### [facility] ([id number]) [address], [address] [place] [address] HCO3 (Bld) [Moles/Vol] 26.7 mmol/L High 20.0-24.0 [facility] Comment on above: Performed By: #### 6 873-4, 89949-4, 57550-6, CMP, 62002-6, HA1C, CBCA #### [facility] ([id number]) [address], [address] [place] [address] Oxygen saturation in Blood 43.0 % Low >80.0 [facility] Comment on above: Performed By: #### 6 873-4, 61221-3, 01927-7, CMP, 12809-4, HA1C, CBCA #### [facility] ([id number]) [address], [address] [place] [address] OXYGEN SOURCE RoomAir Normal [facility] Comment on above: Performed By: #### 6 873-4, 21900-7, 35952-5, CMP, 65387-5, HA1C, CBCA #### [facility] ([id number]) [address], [address] [place] [address] PCO2, VENOUS 43.5 MMHG Normal 35-50 [facility] Comment on above: Performed By: #### 6 873-4, 07244-6, 21757-9, CMP, 10201-8, HA1C, CBCA #### [facility] ([id number]) [address], [address] [place] [address] PH, VENOUS 7.397 Normal 7.320-7.420 [facility] Comment on above: Performed By: #### 6 873-4, 67988-2, 81965-4, CMP, 66070-7, HA1C, CBCA #### [facility] ([id number]) [address], [address] [place] [address] PO2, VENOUS 24 MMHG Low 30-50 [facility] Comment on above: Performed By: #### 6 873-4, 96880-4, 30317-3, CMP, 04576-4, HA1C, CBCA #### [facility] ([id number]) [address], [address] [place] [address] SAMPLE SITE N/A Normal [facility] Comment on above: Performed By: #### 6 873-4, 67838-9, 00654-3, CMP, 51304-6, HA1C, CBCA #### [facility] ([id number]) [address], [address] [place] [address] SAMPLE TYPE VENOUS Normal [facility] Comment on above: Performed By: #### 6 873-4, 51932-6, 68772-1, CMP, 61333-8, HA1C, CBCA #### [facility] ([id number]) [address], [address] [place] [address] Beta hydroxybutyrate [Moles/ Vol]on 07-03-2023 BetaHydroxybutyrate 1.23 mmol/L High 0.02-0.27 [facility] Comment on above: Performed By: #### 6 873-4, 40478-6, 38918-2, CMP, 80361-8, HA1C, CBCA #### [facility] ([id number]) [address], [address] [place] [address] BetaHydroxybutyrate 2.65 mmol/L High 0.02-0.27 [facility] Comment on above: Performed By: #### 6 873-4, 50771-9, 73340-8, CMP, 77787-0, HA1C, CBCA #### [facility] ([id number]) [address], [address] [place] [address] Interpretation and review of laboratory results Abnormal [facility] BetaHydroxybutyrate 2.84 mmol/L High 0.02-0.27 [facility] Comment on above: Performed By: #### 6 873-4, 44152-2, 43696-7, CMP, 56801-8, HA1C, CBCA #### [facility] ([id number]) [address] [place] [address] BetaHydroxybutyrateon 2023 Beta hydroxybutyrate [Moles/Vol] 1.23 mmol/L High 0.02 - 0.27 mmol/L [facility] Beta hydroxybutyrate [Moles/Vol] 2.65 mmol/L High 0.02 - 0.27 mmol/L [facility] Beta hydroxybutyrate [Moles/Vol] 2.84 mmol/L High 0.02 - 0.27 mmol/L [facility] CBC AND AUTO DIFFon 07-03-19 ABSOLUTE BASOPHIL 0.1 X10E9/L Normal 0.0-0.2 [facility] Comment on above: Performed By: #### 6 873-4, 58683-8, 81005-9, CMP, 79027-3, HA1C, CBCA #### [facility] ([id number]) [address] [place] [address] ABSOLUTE NEUTROPHIL 11.0 X10E9/L High 1.5-6.6 [facility] Comment on above: Performed By: #### 6 873-4, 79230-4, 23202-0, CMP, 10267-4, HA1C, CBCA #### [facility] ([id number]) [address] [place] [address] Basophils/100 WBC (Bld) 0.6 % Normal [facility] Comment on above: Performed By: #### 6 873-4, 58675-9, 98062-1, CMP, 90359-3, HA1C, CBCA #### [facility] ([id number]) [address] [place] [address] Eosinophils (Bld) [#/Vol] 0.0 10*3/uL Normal 0.0-0.4 [facility] Comment on above: Performed By: #### 6 873-4, 48265-7, 97876-2, CMP, 87185-9, HA1C, CBCA #### [facility] ([id number]) [address], [address] [place] [address] Eosinophils/100 WBC (Bld) 0.0 % Normal [facility] Comment on above: Performed By: #### 6 873-4, 66429-7, 18952-0, CMP, 42838-0, HA1C, CBCA #### [facility] ([id number]) [address] [address] Erythrocyte distribution width (RBC) [Ratio] 14.8 % Normal 11.5-15.0 [facility] Comment on above: Performed By: #### 6 873-4, 35728-1, 65382-7, CMP, 78476-5, HA1C, CBCA #### [facility] ([id number]) [address] [address] [place] [address] Hematocrit (Bld) [Volume fraction] 33.7 % Low 35-47 [facility] Comment on above: Performed By: #### 6 873-4, 99859-3, 96843-2, CMP, 39702-5, HA1C, CBCA #### [facility] ([id number]) [address] [address] [place] [address] Hemoglobin (Bld) [Mass/Vol] 10.8 g/dL Low 11.7-15.5 [facility] Comment on above: Performed By: #### 6 873-4, 16057-6, 71391-7, CMP, 79229-2, HA1C, CBCA #### [facility] ([id number]) [address] [address] Lymphocytes (Bld) [#/Vol] 0.5 10*3/uL Low 1.0-3.5 [facility] Comment on above: Performed By: #### 6 873-4, 27698-4, 91907-7, CMP, 37609-6, HA1C, CBCA #### [facility] ([id number]) [address] [place] [address] Lymphocytes/100 WBC (Bld) 4.1 % Normal [facility] Comment on above: Performed By: #### 6 873-4, 40845-5, 42341-7, CMP, 65783-6, HA1C, CBCA #### [facility] ([id number]) [address], [facility] [address] [place] [address] MCH (RBC) [Entitic mass] 25.4 pg Low 27-34 [facility] Comment on above: Performed By: #### 6 873-4, 78287-9, 58883-6, CMP, 12255-5, HA1C, CBCA #### [facility] ([id number]) [address] [place] [address] MCHC (RBC) [Mass/Vol] 32.2 g/dL Normal 32-36 [facility] Comment on above: Performed By: #### 6 873-4, 10639-2, 93355-1, CMP, 57607-0, HA1C, CBCA #### [facility] ([id number]) [address] [place] [address] MCV (RBC) [Entitic vol] 79 fL Low 80-100 P [facility] Comment on above: Performed By: #### 6 873-4, 36740-1, 73674-3, CMP, 40120-7, HA1C, CBCA #### [facility] ([id number]) [address] [address] [place] [address] Monocytes (Bld) [#/Vol] 0.9 10*3/uL Normal 0-0.9 [facility] Comment on above: Performed By: #### 6 873-4, 80629-3, 83368-0, CMP, 39616-0, HA1C, CBCA #### [facility] ([id number]) [address] [place] [address] Monocytes/100 WBC (Bld) 7.0 % Normal P [facility] Comment on above: Performed By: #### 6 873-4, 69629-9, 66013-1, CMP, 05637-9, HA1C, CBCA #### [facility] ([id number]) [address] [place] [address] Neutrophils/100 WBC (Bld) 88.3 % Normal [facility] Comment on above: Performed By: #### 6 873-4, 52949-3, 05821-5, CMP, 80071-5, HA1C, CBCA #### [facility] ([id number]) [address] [place] [address] Platelet mean volume (Bld) [Entitic vol] 7.7 fL Normal 7-12 [facility] Comment on above: Performed By: #### 6 873-4, 46810-9, 93031-1, CMP, 65210-8, HA1C, CBCA #### [facility] ([id number]) [address] [place] [address] Platelets (Bld) [#/Vol] 231 10*3/uL Normal 150-450 [facility] Comment on above: Performed By: #### 6 873-4, 63804-9, 69907-9, CMP, 20550-8, HA1C, CBCA #### [facility] ([id number]) [address] [place] [address] RBC COUNT 4.26 X10E12/L Normal 3.80-5.20 [facility] Comment on above: Performed By: #### 6 873-4, 92224-7, 67649-9, CMP, 16849-8, HA1C, CBCA #### [facility] ([id number]) [address] [place] [address] WBC (Bld) [#/Vol] 12.4 10*3/uL High 4.0-11.0 [facility] Comment on above: Performed By: #### 6 873-4, 10400-5, 45633-7, CMP, 89343-9, HA1C, CBCA #### [facility] ([id number]) [address] [facility] [facility] [facility] [facility] [place] [address] CBC auto differentialon Basophils (Bld) [#/Vol] 0.1 10*3/uL [facility] Basophils/100 WBC (Bld) 0.6 % P [facility] Eosinophils (Bld) [#/Vol] 0.0 10*3/uL [facility] Eosinophils/100 WBC (Bld) 0.0 % [facility] Erythrocyte distribution width (RBC) [Ratio] 14.8 % 11.5 - 15.0 % [facility] Hematocrit (Bld) [Volume fraction] 33.7 % Low 35 - 47 % [facility] Hemoglobin (Bld) [Mass/Vol] 10.8 g/dL Low 11.7 - 15.5 g/dL [facility] Interpretation and review of laboratory results Abnormal [facility] Lymphocytes (Bld) [#/Vol] 0.5 10*3/uL Low [facility] Lymphocytes/100 WBC (Bld) 4.1 % [facility] MCH (RBC) [Entitic mass] 25.4 pg Low 27 - 34 pg [facility] MCHC (RBC) [Mass/Vol] 32.2 g/dL 32 - 36 g/dL [facility] MCV (RBC) [Entitic vol] 79 fL Low 80 - 100 fL [facility] Monocytes (Bld) [#/Vol] 0.9 10*3/uL [facility] Monocytes/100 WBC (Bld) 7.0 % [facility] Neutrophils (Bld) [#/Vol] 11.0 10*3/uL High [facility] Neutrophils/100 WBC (Bld) 88.3 % [facility] Platelet mean volume (Bld) [Entitic vol] 7.7 fL 7 - 12 fL [facility] Platelets (Bld) [#/Vol] 231 10*3/uL [facility] RBC (Bld) [#/Vol] 4.26 10*6/uL [facility] WBC corrected for nucl RBC Auto (Bld) [#/Vol] 12.4 High [facility] COMPREHENSIVE METABOLIC PANE [employer] 07-03-2023 Albumin [Mass/Vol] 3.4 g/dL Normal 3.2-5.3 [facility] Comment on above: Performed By: #### 6 873-4, 21470-9, 87108-7, CMP, 89772-1, HA1C, CBCA #### [facility] ([id number]) [address] [place] [address] ALP [Catalytic activity/Vol] 80 U/L Normal 39-130 [facility] Comment on above: Performed By: #### 6 873-4, 51608-7, 51396-5, CMP, 82879-3, HA1C, CBCA #### [facility] ([id number]) [address] [place] [address] ALT [Catalytic activity/Vol] 14 U/L Normal 0-31 [facility] Comment on above: Performed By: #### 6 873-4, 91897-6, 88013-8, CMP, 58860-0, HA1C, CBCA #### [facility] ([id number]) [address] [place] [address] Anion gap [Moles/Vol] 10 mmol/L Normal 5-15 [facility] Comment on above: Performed By: #### 6 873-4, 11046-0, 84373-3, CMP, 86597-3, HA1C, CBCA #### [facility] ([id number]) [address] [place] [address] AST [Catalytic activity/Vol] 23 U/L Normal 0-41 [facility] Comment on above: Performed By: #### 6 873-4, 82453-1, 20636-0, CMP, 19028-1, HA1C, CBCA #### [facility] ([id number]) [address] [place] [address] Bilirubin [Mass/Vol] 0.3 mg/dL Normal 0.3-1.2 [facility] Comment on above: Performed By: #### 6 873-4, 58876-2, 88333-5, CMP, 95588-9, HA1C, CBCA #### [facility] ([id number]) [address] [place] [address] Calcium [Mass/Vol] 6.6 mg/dL Critically low 8.5-10.5 [facility] Comment on above: Performed By: #### 6 873-4, 42208-6, 03649-4, CMP, 80759-4, HA1C, CBCA #### [facility] ([id number]) [address], [address] [place] [address] Chloride [Moles/Vol] 117 mmol/L High 98-109 [facility] Comment on above: Performed By: #### 6 873-4, 70852-4, 62948-6, CMP, 81721-4, HA1C, CBCA #### [facility] ([id number]) [address], [address] [place] [address] CO2 [Moles/Vol] 12 mmol/L Low 22-32 [facility] Comment on above: Performed By: #### 6 873-4, 67071-9, 08965-6, CMP, 19793-1, HA1C, CBCA #### [facility] ([id number]) [address], [address] [place] [address] Creatinine [Mass/Vol] 0.53 mg/dL Normal 0.40-1.00 [facility] Comment on above: Result Comment: METH OD TRACEABLE TO IDMS STANDARD Performed By: #### 6 873-4, 10941-7, 52528-8, CMP, 00474-0, HA1C, CBCA #### [facility] ([id number]) [address], [address] [place] [address] eGFR (CKD-EPI) NON-RACE DEPENDENT >90 Normal >59 [facility] Comment on above: Result Comment: Reported eGFR is based on the CKD-EPI 2020 equation that does not use a race coefficient. Performed By: #### 6 873-4, 30594-2, 35547-9, CMP, 52900-6, HA1C, CBCA #### [facility] ([id number]) [address], [address] [place] [address] Glucose [Mass/Vol] 214 mg/dL High 65-99 [facility] Comment on above: Performed By: #### 6 873-4, 70950-0, 48284-0, CMP, 95689-3, HA1C, CBCA #### [facility] ([id number]) [address], [address] [place] [address] Potassium [Moles/Vol] 3.7 mmol/L Normal 3.5-5.0 [facility] Comment on above: Performed By: #### 6 873-4, 91401-8, 98841-0, CMP, 03340-5, HA1C, CBCA #### [facility] ([id number]) [address], [address] [place] [address] Protein [Mass/Vol] 5.7 g/dL Low 6.0-8.0 [facility] Comment on above: Performed By: #### 6 873-4, 24457-5, 71645-8, CMP, 12424-7, HA1C, CBCA #### [facility] ([id number]) [address], [address] [place] [address] Sodium [Moles/Vol] 139 mmol/L Normal 134-146 [facility] Comment on above: Performed By: #### 6 873-4, 31132-5, 69170-3, CMP, 99461-1, HA1C, CBCA #### [facility] ([id number]) [address] [place] [address] Urea nitrogen [Mass/Vol] 8 mg/dL Normal 5-23 [facility] Comment on above: Performed By: #### 6 873-4, 77853-9, 91080-8, CMP, 06145-0, HA1C, CBCA #### [facility] ([id number]) [address] [place] [address] Calcium.ionized (Bld) [Mass/ Vol]on 07-03-2023 IONIZED CALCIUM 4.5 mg/dL Normal 4.5-5.3 [facility] Comment on above: Performed By: #### 6 873-4, 29840-1, 01609-0, CMP, 49549-7, HA1C, CBCA #### [facility] ([id number]) [address], [address] [place] [address] [facility] IONIZED CALCIUM 4.3 mg/dL Low 4.5-5.3 [facility] Comment on above: Performed By: #### 6 873-4, 54896-0, 58744-5, CMP, 27487-4, HA1C, CBCA #### [facility] ([id number]) [address], [address] [place] [address] Interpretation and review of laboratory results Abnormal [facility] Cardiac echo study Procedure Ordered By: Dilan Navarrete on 07-03-2023 Aortic root 2.70 cm [employer] Work Phone: [phone] AV mean gradient 5.00 mmHg [employer] Work Phone: [phone] AV peak gradient 9.99 mmHg [employer] Work Phone: [phone] AV peak deep 158.00 cm/s [employer] Work Phone: [phone] AV Velocity Ratio 0.60 [employer] Work Phone: [phone] AV VTI 27.60 cm [employer] Work Phone: [phone] E wave deceleration time 194.00 msec [employer] Work Phone: [phone] E/A ratio 1.15 [employer] Work Phone: [phone] Echo EF Estimated 61 % [employer] Work Phone: [phone] 61 % [employer] Work Phone: [phone] 35 % 28 - 44 % [employer] Work Phone: [phone] Interventricular Septum Diastolic Thickness by 2D 11 cm [employer] Work Phone: [phone] IVS 1.10 cm 0.6 - 1.1 cm [employer] Work Phone: [phone] LA size 3.20 cm [employer] Work Phone: [phone] LA volume 40.30 cm3 [employer] Work Phone: [phone] LA Volume Index 23.4 mL/m2 [employer] Work Phone: [phone] Left Ventricle Mass 181.282071886323781 g [employer] Work Phone: [phone] LV Diastolic Volume 115.00 mL [employer] Work Phone: [phone] LV ESV A2C 38.20 mL [employer] Work Phone: [phone] LV ESV A4C 39.60 mL [employer] Work Phone: [phone] LV RWT 2D 47.83 [employer] Work Phone: [phone] LV Systolic Volume [facility].[address] [facility] Work Phone: [phone] LVIDd 4.60 cm 4.09 - 5.[address] [facility] Work Phone: [phone] LVIDs 3.00 cm 2.42 - 3.67 cm [employer] Work Phone: [phone] LVOT peak deep 0.92 m/s [facility] Work Phone: [phone] LVOT peak VTI 16.50 cm [employer] Work Phone: [phone] MV Peak A Deep 76.60 cm/s [facility] Work Phone: [phone] MV Peak E Deep 87.80 cm/s [employer] Work Phone: [phone] MV pressure 1/2 time 57.00 ms [facility] Work Phone: [phone] MV TDI E' (medial) 7.29 cm/s [facility] Work Phone: [phone] MV valve area p 1/2 method 3.86 cm2 [employer] Work Phone: [phone] PW 1.10 cm 0.6 - 1.1 cm [employer] Work Phone: [phone] RV diastolic dimension (basal) 36.0 mm [employer] Work Phone: [phone] RV diastolic dimension (mid-ventricle) 31.0 cm [employer] Work Phone: [phone] RV diastolic length 62.0 cm [facility] [employer] Work Phone: [phone] RV Peak Systolic Pressure [address] [facility] Work Phone: [phone] TAPSE 2.46 cm [employer] Work Phone: [phone] TDI 10.30 cm/s [facility] Work Phone: [phone] TR peak gradient 21.72 mmHg [employer] Work Phone: [phone] TR Peak Deep 2.3 m/s [employer] Work Phone: [phone] ZLVIDD -0.46 [employer] Work Phone: [phone] ZLVIDS 0.05 [employer] Work Phone: [phone] [employer] Work Phone: [phone] Cardiac echo study Procedure on 07-03-2023 Left [...] is normal. [facility] Radiology Study observation (narrative) [facility] Comprehensive metabolic pane galileo 07-03-2023 Albumin [Mass/Vol] 3.4 g/dL 3.2 - 5.3 g/dL [facility] ALP [Catalytic activity/Vol] 80 U/L 39 - 130 U/L [facility] ALT No additional P-5'-P [Catalytic activity/Vol] 14 U/L 0 - 31 U/L [facility] Anion gap [Moles/Vol] 10 mmol/L 5 - 15 mmol/L [facility] AST [Catalytic activity/Vol] 23 U/L 0 - 41 U/L [facility] Bilirubin [Mass/Vol] 0.3 mg/dL 0.3 - 1 .2 mg/dL [facility] Calcium [Mass/Vol] 6.6 mg/dL Critically low 8.5 - 1 0.5 mg/dL [facility] Chloride [Moles/Vol] 117 mmol/L High 98 - 10 9 mmol/L [facility] CO2 [Moles/Vol] 12 mmol/L Low 22 - 32 mmol/L [facility] Creatinine [Mass/Vol] 0.53 mg/dL 0.40 - 1.00 mg/dL [facility] Comment on above: METHOD TRACEABLE TO IDVT STANDARD eGFR (CKD-EPI)non-race dependent - PINF [facility] Comment on above: Reported eGFR is based on the CKD-EPI 2020 equation that does not use a race coefficient. Glucose [Mass/Vol] 214 mg/dL High 65 - 99 mg/dL [facility] Potassium [Moles/Vol] 3.7 mmol/L 3.5 - 5.0 mmol/L [facility] Protein [Mass/Vol] 5.7 g/dL Low 6.0 - 8.0 g/dL [facility] Sodium [Moles/Vol] 139 mmol/L 134 - 146 mmol/L [facility] Urea nitrogen [Mass/Vol] 8 mg/dL 5 - 23 mg/d L [facility] ELECTROLYTESon 07-03-2023 Anion gap [Moles/Vol] 7 mmol/L Normal 5-15 [facility] Comment on above: Performed By: #### 6 873-4, 27500-3, 99065-2, CMP, 50945-1, HA1C, CBCA #### [facility] ([id number]) [address], [address] [place] [address] Chloride [Moles/Vol] 108 mmol/L Normal 98-109 [facility] Comment on above: Performed By: #### 6 873-4, 79599-7, 32025-9, CMP, 47790-9, HA1C, CBCA #### [facility] ([id number]) [address], [address] [place] [address] CO2 [Moles/Vol] 20 mmol/L Low 22-32 [facility] Comment on above: Performed By: #### 6 873-4, 40148-6, 03605-8, CMP, 82008-9, HA1C, CBCA #### [facility] ([id number]) [address], [address] [place] [address] Potassium [Moles/Vol] 3.4 mmol/L Low 3.5-5.0 [facility] Comment on above: Performed By: #### 6 873-4, 33948-9, 92926-9, CMP, 61744-2, HA1C, CBCA #### [facility] ([id number]) [address], [address] [place] [address] Sodium [Moles/Vol] 135 mmol/L Normal 134-146 [facility] Comment on above: Performed By: #### 6 873-4, 53992-3, 47505-3, CMP, 93934-4, HA1C, CBCA #### [facility] ([id number]) [address], [address] [place] [address] Anion gap [Moles/Vol] 12 mmol/L Normal 5-15 [facility] Comment on above: Performed By: #### 6 873-4, 00787-9, 72193-1, CMP, 74757-0, HA1C, CBCA #### [facility] ([id number]) [address], [address] [place] [address] Chloride [Moles/Vol] 108 mmol/L Normal 98-109 [facility] Comment on above: Performed By: #### 6 873-4, 48001-0, 56902-9, CMP, 60449-1, HA1C, CBCA #### [facility] ([id number]) [address], [address] [place] [address] CO2 [Moles/Vol] 15 mmol/L Low 22-32 [facility] Comment on above: Performed By: #### 6 873-4, 36914-5, 18191-5, CMP, 38521-4, HA1C, CBCA #### [facility] ([id number]) [address], [address] [place] [address] Potassium [Moles/Vol] 3.7 mmol/L Normal 3.5-5.0 [facility] Comment on above: Performed By: #### 6 873-4, 22634-5, 81970-1, CMP, 79629-9, HA1C, CBCA #### [facility] ([id number]) [address], [address] [place] [address] Sodium [Moles/Vol] 135 mmol/L Normal 134-146 [facility] Comment on above: Performed By: #### 6 873-4, 35083-0, 80157-4, CMP, 70915-7, HA1C, CBCA #### [facility] ([id number]) [address], [address] [place] [address] Anion gap [Moles/Vol] 8 mmol/L Normal 5-15 [facility] Comment on above: Performed By: #### 6 873-4, 47097-5, 19878-5, CMP, 19499-6, HA1C, CBCA #### [facility] ([id number]) [address], [address] [place] [address] Chloride [Moles/Vol] 108 mmol/L Normal 98-109 [facility] Comment on above: Performed By: #### 6 873-4, 15807-8, 84561-2, CMP, 05812-0, HA1C, CBCA #### [facility] ([id number]) [address], [address] [place] [address] CO2 [Moles/Vol] 18 mmol/L Low 22-32 [facility] Comment on above: Performed By: #### 6 873-4, 52079-4, 12591-1, CMP, 35923-8, HA1C, CBCA #### [facility] ([id number]) [address], [address] [place] [address] Potassium [Moles/Vol] 3.7 mmol/L Normal 3.5-5.0 [facility] Comment on above: Performed By: #### 6 873-4, 76892-7, 52468-7, CMP, 54723-3, HA1C, CBCA #### [facility] ([id number]) [address], [address] [place] [address] Sodium [Moles/Vol] 134 mmol/L Normal 134-146 [facility] Comment on above: Performed By: #### 6 873-4, 19583-4, 39729-3, CMP, 76984-7, HA1C, CBCA #### [facility] ([id number]) [address], [address] [place] [address] Anion gap [Moles/Vol] 8 mmol/L Normal 5-15 [facility] Comment on above: Performed By: #### 6 873-4, 84910-5, 56533-0, CMP, 55027-1, HA1C, CBCA #### [facility] ([id number]) [address], [address] [place] [address] Chloride [Moles/Vol] 116 mmol/L High 98-109 [facility] Comment on above: Performed By: #### 6 873-4, 07997-7, 47307-4, CMP, 64247-0, HA1C, CBCA #### [facility] ([id number]) [address], [address] [place] [address] CO2 [Moles/Vol] 15 mmol/L Low 22-32 [facility] Comment on above: Performed By: #### 6 873-4, 94076-1, 37663-3, CMP, 17960-2, HA1C, CBCA #### [facility] ([id number]) [address], [address] [place] [address] Potassium [Moles/Vol] 3.0 mmol/L Low 3.5-5.0 [facility] Comment on above: Performed By: #### 6 873-4, 14552-1, 26390-1, CMP, 57130-1, HA1C, CBCA #### [facility] ([id number]) [address], [address] [place] [address] Sodium [Moles/Vol] 139 mmol/L Normal 134-146 [facility] Comment on above: Performed By: #### 6 873-4, 07590-2, 43182-7, CMP, 81925-7, HA1C, CBCA #### [facility] ([id number]) [address], [address] [place] [address] Anion gap [Moles/Vol] 8 mmol/L Normal 5-15 [facility] Comment on above: Performed By: #### 6 873-4, 52006-2, 58242-0, CMP, 47157-2, HA1C, CBCA #### [facility] ([id number]) [address], [address] [place] [address] Chloride [Moles/Vol] 121 mmol/L High 98-109 [facility] Comment on above: Performed By: #### 6 873-4, 75402-3, 82442-4, CMP, 01633-7, HA1C, CBCA #### [facility] ([id number]) [address], [address] [place] [address] CO2 [Moles/Vol] 13 mmol/L Low 22-32 [facility] Comment on above: Performed By: #### 6 873-4, 79702-9, 99551-0, CMP, 85554-4, HA1C, CBCA #### [facility] ([id number]) [address], [address] [place] [address] Potassium [Moles/Vol] 3.2 mmol/L Low 3.5-5.0 [facility] Comment on above: Performed By: #### 6 873-4, 37467-8, 63792-6, CMP, 74457-9, HA1C, CBCA #### [facility] ([id number]) [address], [address] [place] [address] Sodium [Moles/Vol] 142 mmol/L Normal 134-146 [facility] Comment on above: Performed By: #### 6 873-4, 03675-8, 09404-2, CMP, 61235-0, HA1C, CBCA #### [facility] ([id number]) [address], [address] [place] [address] Electrolyte panelon 07-03-19 Anion gap [Moles/Vol] 7 mmol/L 5 - 15 mmol/L [facility] Chloride [Moles/Vol] 108 mmol/L 98 - 10 9 mmol/L [facility] CO2 [Moles/Vol] 20 mmol/L Low 22 - 32 mmol/L [facility] Potassium [Moles/Vol] 3.4 mmol/L Low 3.5 - 5.0 mmol/L [facility] Sodium [Moles/Vol] 135 mmol/L 134 - 146 mmol/L [facility] Anion gap [Moles/Vol] 12 mmol/L 5 - 15 mmol/L [facility] Chloride [Moles/Vol] 108 mmol/L 98 - 10 9 mmol/L [facility] CO2 [Moles/Vol] 15 mmol/L Low 22 - 32 mmol/L [facility] Potassium [Moles/Vol] 3.7 mmol/L 3.5 - 5.0 mmol/L [facility] Sodium [Moles/Vol] 135 mmol/L 134 - 146 mmol/L [facility] Anion gap [Moles/Vol] 8 mmol/L 5 - 15 mmol/L [facility] Chloride [Moles/Vol] 108 mmol/L 98 - 10 9 mmol/L [facility] CO2 [Moles/Vol] 18 mmol/L Low 22 - 32 mmol/L [facility] Potassium [Moles/Vol] 3.7 mmol/L 3.5 - 5.0 mmol/L [facility] Sodium [Moles/Vol] 134 mmol/L 134 - 146 mmol/L [facility] Anion gap [Moles/Vol] 8 mmol/L 5 - 15 mmol/L [facility] Chloride [Moles/Vol] 116 mmol/L High 98 - 10 9 mmol/L [facility] CO2 [Moles/Vol] 15 mmol/L Low 22 - 32 mmol/L [facility] Interpretation and review of laboratory results Abnormal [facility] Potassium [Moles/Vol] 3.0 mmol/L Low 3.5 - 5.0 mmol/L [facility] Sodium [Moles/Vol] 139 mmol/L 134 - 146 mmol/L [facility] Anion gap [Moles/Vol] 8 mmol/L 5 - 15 mmol/L [facility] Chloride [Moles/Vol] 121 mmol/L High 98 - 10 9 mmol/L [facility] CO2 [Moles/Vol] 13 mmol/L Low 22 - 32 mmol/L [facility] Interpretation and review of laboratory results Abnormal [facility] Potassium [Moles/Vol] 3.2 mmol/L Low 3.5 - 5.0 mmol/L [facility] Sodium [Moles/Vol] 142 mmol/L 134 - 146 mmol/L [facility] Glucose Glucometer (BldC) [M ass/Vol]on 07-03-2023 Glucose [Mass/Vol] 238 mg/dL High 65 - 99 mg/dL [facility] Interpretation and review of laboratory results Abnormal [facility] Glucose [Mass/Vol] 251 mg/dL High 65-99 [facility] Glucose [Mass/Vol] 265 mg/dL High 65 - 99 mg/dL [facility] Interpretation and review of laboratory results Abnormal [facility] Glucose [Mass/Vol] 243 mg/dL High 65-99 [facility] Glucose [Mass/Vol] 241 mg/dL High 65-99 [facility] Glucose [Mass/Vol] 251 mg/dL High 65 - 99 mg/dL [facility] Interpretation and review of laboratory results Abnormal [facility] Glucose [Mass/Vol] 243 mg/dL High 65 - 99 mg/dL [facility] Interpretation and review of laboratory results Abnormal [facility] Glucose [Mass/Vol] 171 mg/dL High 65-99 [facility] Glucose [Mass/Vol] 241 mg/dL High 65 - 99 mg/dL [facility] Interpretation and review of laboratory results Abnormal [facility] Glucose [Mass/Vol] 171 mg/dL High 65 - 99 mg/dL [facility] Interpretation and review of laboratory results Abnormal [facility] Glucose [Mass/Vol] 186 mg/dL High 65-99 [facility] Glucose [Mass/Vol] 186 mg/dL High 65 - 99 mg/dL [facility] Interpretation and review of laboratory results Abnormal [facility] Glucose [Mass/Vol] 130 mg/dL High 65-99 [facility] Interpretation and review of laboratory results Abnormal [facility] Glucose [Mass/Vol] 149 mg/dL High 65-99 [facility] Glucose [Mass/Vol] 200 mg/dL High 65-99 [facility] Glucose [Mass/Vol] 149 mg/dL High 65 - 99 mg/dL [facility] Interpretation and review of laboratory results Abnormal [facility] Glucose [Mass/Vol] 215 mg/dL High 65-99 [facility] Glucose [Mass/Vol] 253 mg/dL High 65-99 [facility] Interpretation and review of laboratory results Abnormal [facility] Glucose [Mass/Vol] 200 mg/dL High 65 - 99 mg/dL [facility] Interpretation and review of laboratory results Abnormal [facility] Glucose [Mass/Vol] 215 mg/dL High 65 - 99 mg/dL [facility] Interpretation and review of laboratory results Abnormal [facility] Glucose [Mass/Vol] 219 mg/dL High 65-99 [facility] Glucose [Mass/Vol] 223 mg/dL High 65-99 [facility] Glucose [Mass/Vol] 219 mg/dL High 65 - 99 mg/dL [facility] Interpretation and review of laboratory results Abnormal [facility] Glucose [Mass/Vol] 160 mg/dL High 65-99 [facility] Glucose [Mass/Vol] 223 mg/dL High 65 - 99 mg/dL [facility] Interpretation and review of laboratory results Abnormal [facility] Glucose [Mass/Vol] 154 mg/dL High 65-99 [facility] Glucose [Mass/Vol] 160 mg/dL High 65 - 99 mg/dL [facility] Interpretation and review of laboratory results Abnormal [facility] Glucose [Mass/Vol] 186 mg/dL High 65-99 [facility] Glucose [Mass/Vol] 154 mg/dL High 65 - 99 mg/dL [facility] Interpretation and review of laboratory results Abnormal [facility] Glucose [Mass/Vol] 212 mg/dL High 65-99 [facility] Glucose [Mass/Vol] 186 mg/dL High 65 - 99 mg/dL [facility] Interpretation and review of laboratory results Abnormal [facility] Glucose [Mass/Vol] 233 mg/dL High 65-99 [facility] Glucose [Mass/Vol] 212 mg/dL High 65 - 99 mg/dL [facility] Interpretation and review of laboratory results Abnormal [facility] Ionized calciumon 07-03-2023 Calcium.ionized (Bld) [Mass/Vol] 4.5 mg/dL 4.5 - 5.3 mg/dL [facility] Calcium.ionized (Bld) [Mass/Vol] 4.3 mg/dL Low 4.5 - 5.3 mg/dL [facility] MAGNESIUMon 07-03-2023 Magnesium [Mass/Vol] 1.8 mg/dL Normal 1.8-2.6 [facility] Comment on above: Performed By: #### 6 873-4, 27648-5, 67149-3, CMP, 27350-1, HA1C, CBCA #### [facility] ([id number]) [address], [address] [place] [address] Magnesiumon 07-03-2023 Magnesium [Mass/Vol] 1.8 mg/dL 1.8 - 2 .6 mg/dL [facility] No Panel Informationon 07-03 Interpretation and review of laboratory results Abnormal [facility] Interpretation and review of laboratory results Abnormal [facility] Interpretation and review of laboratory results Abnormal [facility] Interpretation and review of laboratory results Abnormal [facility] Interpretation and review of laboratory results Abnormal [facility] Interpretation and review of laboratory results Abnormal [facility] PHOSPHORUSon 07-03-2023 Phosphate [Mass/Vol] 1.1 mg/dL Low 2.4-4.9 [facility] Comment on above: Performed By: #### 6 873-4, 06557-9, 13057-8, CMP, 14358-9, HA1C, CBCA #### [facility] ([id number]) [address] [place] [address] Phosphate [Mass/Vol] 2.2 mg/dL Low 2.4-4.9 [facility] Comment on above: Performed By: #### 6 873-4, 53719-9, 27140-7, CMP, 80217-5, HA1C, CBCA #### [facility] ([id number]) [address] [place] [address] Phosphate [Mass/Vol] 1.9 mg/dL Low 2.4-4.9 [facility] Comment on above: Performed By: #### 6 873-4, 15450-2, 85592-6, CMP, 47803-8, HA1C, CBCA #### [facility] ([id number]) [address] [place] [address] Phosphate [Mass/Vol] mg/dL Critically low 2.4-4.9 [facility] Comment on above: Performed By: #### 6 873-4, 37893-3, 62134-3, CMP, 86596-3, HA1C, CBCA #### [facility] ([id number]) [address], [address] [place] [address] Phosphate [Mass/Vol] 2.2 mg/dL Low 2.4-4.9 [facility] Comment on above: Performed By: #### 6 873-4, 50584-0, 18287-1, CMP, 96873-2, HA1C, CBCA #### [facility] ([id number]) [address] [place] [address] Phosphate [Mass/Vol] mg/dL Critically low 2.4-4.9 [facility] Comment on above: Performed By: #### 6 873-4, 44300-3, 11725-1, CMP, 59024-6, HA1C, CBCA #### [facility] ([id number]) [address], [address] [place] [address] Phosphate [Mass/Vol]on 07-03 Interpretation and review of laboratory results Abnormal [facility] Phosphoruson 07-03-2023 Phosphate [Mass/Vol] 1.1 mg/dL Low 2.4 - 4 .9 mg/dL [facility] Phosphate [Mass/Vol] 2.2 mg/dL Low 2.4 - 4 .9 mg/dL [facility] Phosphate [Mass/Vol] 1.9 mg/dL Low 2.4 - 4 .9 mg/dL [facility] Phosphate [Mass/Vol] mg/dL Critically low 2.4 - 4.9 mg/dL [facility] Phosphate [Mass/Vol] 2.2 mg/dL Low 2.4 - 4 .9 mg/dL [facility] Phosphate [Mass/Vol] mg/dL Critically low 2.4 - 4.9 mg/dL [facility] TROPONIN Ion 07-03-2023 Troponin I.cardiac [Mass/Vol] 0.69 ng/mL Critically high 0.00-0.04 [facility] Comment on above: Result Comment: Concentrations greater than or equal to 0.05 ng/ml are considered elevated. Elevations of Troponin may be due to causes other than myocardial ischemia. Recommend serial Troponin testing be performed. Performed By: #### 6 873-4, 43214-8, 76331-8, CMP, 43405-9, HA1C, CBCA #### [facility] ([id number]) [address], [address] [place] [address] Troponin I.cardiac [Mass/Vol] 0.75 ng/mL Critically high 0.00-0.04 [facility] Comment on above: Result Comment: Concentrations greater than or equal to 0.05 ng/ml are considered elevated. Elevations of Troponin may be due to causes other than myocardial ischemia. Recommend serial Troponin testing be performed. Performed By: #### 6 873-4, 20094-0, 06066-2, CMP, 59124-6, HA1C, CBCA #### [facility] ([id number]) [facility] [facility] [address] Troponin I.cardiac [Mass/Vol] 1.53 ng/mL Critically high 0.00-0.04 [facility] Comment on above: Result Comment: Concentrations greater than or equal to 0.05 ng/ml are considered elevated. Elevations of Troponin may be due to causes other than myocardial ischemia. Recommend serial Troponin testing be performed. Performed By: #### 6 873-4, 75479-0, 14767-5, CMP, 41044-0, HA1C, CBCA #### [facility] ([id number]) [address] [facility] [address] [place] [address] Troponin I.cardiac [Mass/Vol] 1.80 ng/mL Critically high 0.00-0.04 [facility] Comment on above: Result Comment: Concentrations greater than or equal to 0.05 ng/ml are considered elevated. Elevations of Troponin may be due to causes other than myocardial ischemia. Recommend serial Troponin testing be performed. Performed By: #### 6 873-4, 19459-3, 49485-6, CMP, 94538-0, HA1C, CBCA #### [facility] ([id number]) [address], [address] [place] [address] Troponin Ion 07-03-2023 Troponin I.cardiac [Mass/Vol] 0.69 ng/mL Critically high 0.00 - 0.04 ng/mL [employer] [facility] Comment on above: Concentrations greater than or equal to 0.05 ng/ml are considered elevated. Elevations of Troponin may be due to causes other than myocardial ischemia. Recommend serial Troponin testing be performed. Troponin I.cardiac [Mass/Vol] 0.75 ng/mL Critically high 0.00 - 0.04 ng/mL [employer] Comment on above: Concentrations greater than or equal to 0.05 ng/ml are considered elevated. Elevations of Troponin may be due to causes other than myocardial ischemia. Recommend serial Troponin testing be performed. Troponin I.cardiac [Mass/Vol] 1.53 ng/mL Critically high 0.00 - 0.04 ng/mL [employer] Comment on above: Concentrations greater than or equal to 0.05 ng/ml are considered elevated. Elevations of Troponin may be due to causes other than myocardial ischemia. Recommend serial Troponin testing be performed. Troponin I.cardiac [Mass/Vol] 1.80 ng/mL Critically high 0.00 - 0.04 ng/mL [employer] [facility] Comment on above: Concentrations greater than or equal to 0.05 ng/ml are considered elevated. Elevations of Troponin may be due to causes other than myocardial ischemia. Recommend serial Troponin testing be performed. Troponin I.cardiac [Mass/Vol ]on 07-03-2023 Interpretation and review of laboratory results Abnormal [facility] Interpretation and review of laboratory results Abnormal [facility] Beta hydroxybutyrate [Moles/ Vol]on 07-02-2023 BetaHydroxybutyrate 3.34 mmol/L High 0.02-0.27 [facility] Comment on above: Performed By: #### 6 873-4, ELEC, 2777-1 ####[facility] ([id number])[address] [facility], [address] [place] [address] BetaHydroxybutyrate 8.59 mmol/L High 0.02-0.27 [facility] Comment on above: Performed By: #### 6 873-4, 56373-4, 62971-1, CMP, 91210-3, HA1C, CBCA #### [facility] ([id number]) [address], [address] [place] [address] BetaHydroxybutyrateon 2023 Beta hydroxybutyrate [Moles/Vol] 3.34 mmol/L High 0.02 - 0.27 mmol/L [facility] Beta hydroxybutyrate [Moles/Vol] 8.59 mmol/L High 0.02 - 0.27 mmol/L [facility] Blood gas, venouson 07-02-19 24 Arterial patency Wrist artery --pre arterial puncture [facility] Base deficit (Bld) [Moles/Vol] 26.0 mmol/L High [facility] CO2 (BldV) [Partial pressure] 20.1 mm[Hg] Low [facility] HCO3 (Bld) [Moles/Vol] 4.5 mmol/L Low [facility] Interpretation and review of laboratory results Abnormal [facility] Oxygen (BldV) [Partial pressure] 27 mm[Hg] Low [facility] Oxygen therapy source and amount [CARE] RoomAir [facility] Oxygen/Inspired gas setting [Volume Fraction] Ventilator 21 % [facility] pH (BldV) 6.956 [pH] Low 7.320 - 7.420 [facility] SaO2% Calculated from oxygen partial pressure (BldV) [Mass fraction] 25.0 % Low 80.0 - PINF % [facility] Specimen site Narrative N/A P [facility] Specimen type Nom (Spec) VENOUS [facility] CBC AND AUTO DIFFon 07-02-19 24 ABSOLUTE BASOPHIL 0.2 X10E9/L Normal 0.0-0.2 [facility] Comment on above: Performed By: #### 6 873-4, 44247-2, 00497-7, CMP, 97402-2, HA1C, CBCA #### [facility] ([id number]) [address], [address] [place] [address] ABSOLUTE NEUTROPHIL 16.1 X10E9/L High 1.5-6.6 [facility] Comment on above: Performed By: #### 6 873-4, 44893-3, 38745-1, CMP, 67120-6, HA1C, CBCA #### [facility] ([id number]) [address], [address] [place] [address] Basophils/100 WBC (Bld) 0.9 % Normal P [facility] Comment on above: Performed By: #### 6 873-4, 12808-0, 67220-0, CMP, 08565-3, HA1C, CBCA #### [facility] ([id number]) [address], [address] [place] [address] Eosinophils (Bld) [#/Vol] 0.0 10*3/uL Normal 0.0-0.4 [facility] Comment on above: Performed By: #### 6 873-4, 78440-4, 56031-4, CMP, 99343-8, HA1C, CBCA #### [facility] ([id number]) [address], [address] [place] [address] Eosinophils/100 WBC (Bld) 0.0 % Normal [facility] Comment on above: Performed By: #### 6 873-4, 37496-8, 66053-1, CMP, 29119-2, HA1C, CBCA #### [facility] ([id number]) [address], [address] [place] [address] Erythrocyte distribution width (RBC) [Ratio] 14.8 % Normal 11.5-15.0 [facility] Comment on above: Performed By: #### 6 873-4, 56604-8, 26297-3, CMP, 44160-1, HA1C, CBCA #### [facility] ([id number]) [address] [address] [place] [address] Hematocrit (Bld) [Volume fraction] 36.5 % Normal 35-47 [facility] Comment on above: Performed By: #### 6 873-4, 86918-9, 24295-1, CMP, 08149-5, HA1C, CBCA #### [facility] ([id number]) [address], [facility] [address] [place] [address] Hemoglobin (Bld) [Mass/Vol] 11.5 g/dL Low 11.7-15.5 [facility] Comment on above: Performed By: #### 6 873-4, 24426-1, 74760-2, CMP, 45084-4, HA1C, CBCA #### [facility] ([id number]) [address], [address] [place] [address] Lymphocytes (Bld) [#/Vol] 1.8 10*3/uL Normal 1.0-3.5 [facility] Comment on above: Performed By: #### 6 873-4, 87249-1, 59570-0, CMP, 69122-2, HA1C, CBCA #### [facility] ([id number]) [address] [address] [place] [address] Lymphocytes/100 WBC (Bld) 9.3 % Normal [facility] Comment on above: Performed By: #### 6 873-4, 46912-5, 31243-5, CMP, 07137-4, HA1C, CBCA #### [facility] ([id number]) [address], [address] [place] [address] MCH (RBC) [Entitic mass] 25.4 pg Low 27-34 [facility] Comment on above: Performed By: #### 6 873-4, 36218-9, 98489-6, CMP, 21136-5, HA1C, CBCA #### [facility] ([id number]) [address], [address] [place] [address] MCHC (RBC) [Mass/Vol] 31.6 g/dL Low 32-36 [facility] Comment on above: Performed By: #### 6 873-4, 81667-2, 02370-7, CMP, 07145-4, HA1C, CBCA #### [facility] ([id number]) [address], [address] [place] [address] MCV (RBC) [Entitic vol] 81 fL Normal 80-100 P [facility] Comment on above: Performed By: #### 6 873-4, 92350-7, 39568-3, CMP, 38142-7, HA1C, CBCA #### [facility] ([id number]) [address], [address] [place] [address] Monocytes (Bld) [#/Vol] 1.1 10*3/uL High 0-0.9 [facility] Comment on above: Performed By: #### 6 873-4, 10216-8, 17168-4, CMP, 87522-6, HA1C, CBCA #### [facility] ([id number]) [address], [address] [place] [address] Monocytes/100 WBC (Bld) 5.7 % Normal [facility] Comment on above: Performed By: #### 6 873-4, 71577-4, 46074-3, CMP, 08330-9, HA1C, CBCA #### [facility] ([id number]) [address], [address] [place] [address] Neutrophils/100 WBC (Bld) 84.1 % Normal [facility] Comment on above: Performed By: #### 6 873-4, 41347-9, 75840-1, CMP, 72541-3, HA1C, CBCA #### [facility] ([id number]) [address], [facility] [address] [place] [address] Platelet mean volume (Bld) [Entitic vol] 7.8 fL Normal 7-12 [facility] Comment on above: Performed By: #### 6 873-4, 21570-7, 21455-1, CMP, 98803-5, HA1C, CBCA #### [facility] ([id number]) [address], [address] [place] [address] Platelets (Bld) [#/Vol] 261 10*3/uL Normal 150-450 [facility] Comment on above: Performed By: #### 6 873-4, 34111-7, 61086-3, CMP, 54471-9, HA1C, CBCA #### [facility] ([id number]) [address], [address] [place] [address] RBC COUNT 4.53 X10E12/L Normal 3.80-5.20 [facility] Comment on above: Performed By: #### 6 873-4, 69564-0, 79549-0, CMP, 91572-6, HA1C, CBCA #### [facility] ([id number]) [address], [address] [place] [address] WBC (Bld) [#/Vol] 19.2 10*3/uL High 4.0-11.0 [facility] Comment on above: Performed By: #### 6 873-4, 41652-5, 73228-5, CMP, 26213-2, HA1C, CBCA #### [facility] ([id number]) [address] [facility] [place] [address] CBC auto differentialon Basophils (Bld) [#/Vol] 0.2 10*3/uL [facility] Basophils/100 WBC (Bld) 0.9 % P [facility] Eosinophils (Bld) [#/Vol] 0.0 10*3/uL [facility] Eosinophils/100 WBC (Bld) 0.0 % [facility] Erythrocyte distribution width (RBC) [Ratio] 14.8 % 11.5 - 15.0 % [facility] Hematocrit (Bld) [Volume fraction] 36.5 % 35 - 47 % [facility] Hemoglobin (Bld) [Mass/Vol] 11.5 g/dL Low 11.7 - 15.5 g/dL [facility] Interpretation and review of laboratory results Abnormal [facility] Lymphocytes (Bld) [#/Vol] 1.8 10*3/uL [facility] Lymphocytes/100 WBC (Bld) 9.3 % [facility] MCH (RBC) [Entitic mass] 25.4 pg Low 27 - 34 pg [facility] MCHC (RBC) [Mass/Vol] 31.6 g/dL Low 32 - 36 g/dL [facility] MCV (RBC) [Entitic vol] 81 fL 80 - 100 fL [facility] Monocytes (Bld) [#/Vol] 1.1 10*3/uL High [facility] Monocytes/100 WBC (Bld) 5.7 % P [facility] Neutrophils (Bld) [#/Vol] 16.1 10*3/uL High [facility] Neutrophils/100 WBC (Bld) 84.1 % [facility] Platelet mean volume (Bld) [Entitic vol] 7.8 fL 7 - 12 fL [facility] Platelets (Bld) [#/Vol] 261 10*3/uL [facility] RBC (Bld) [#/Vol] 4.53 10*6/uL [facility] WBC corrected for nucl RBC Auto (Bld) [#/Vol] 19.2 High [facility] COMPREHENSIVE METABOLIC PANE [employer] 07-02-2023 Albumin [Mass/Vol] 4.0 g/dL Normal 3.2-5.3 [facility] Comment on above: Performed By: #### 6 873-4, 40979-4, 13479-1, CMP, 02186-8, HA1C, CBCA #### [facility] ([id number]) [address], [address] [place] [address] ALP [Catalytic activity/Vol] 93 U/L Normal 39-130 [facility] Comment on above: Performed By: #### 6 873-4, 80185-2, 21468-3, CMP, 54391-0, HA1C, CBCA #### [facility] ([id number]) [address], [address] [place] [address] ALT [Catalytic activity/Vol] 17 U/L Normal 0-31 [facility] Comment on above: Performed By: #### 6 873-4, 19617-5, 14987-3, CMP, 89042-3, HA1C, CBCA #### [facility] ([id number]) [address], [address] [place] [address] Anion gap [Moles/Vol] 20 mmol/L High 5-15 [facility] Comment on above: Performed By: #### 6 873-4, 40035-8, 91395-2, CMP, 61926-3, HA1C, CBCA #### [facility] ([id number]) [address], [address] [place] [address] AST [Catalytic activity/Vol] 25 U/L Normal 0-41 [facility] Comment on above: Performed By: #### 6 873-4, 66175-7, 87558-5, CMP, 45728-5, HA1C, CBCA #### [facility] ([id number]) [address], [address] [place] [address] Bilirubin [Mass/Vol] 0.2 mg/dL Low 0.3-1.2 [facility] Comment on above: Performed By: #### 6 873-4, 57915-1, 19475-0, CMP, 75500-7, HA1C, CBCA #### [facility] ([id number]) [address], [address] [place] [address] Calcium [Mass/Vol] 7.0 mg/dL Low 8.5-10.5 [facility] Comment on above: Performed By: #### 6 873-4, 08274-2, 97077-7, CMP, 94414-9, HA1C, CBCA #### [facility] ([id number]) [address], [address] [place] [address] Chloride [Moles/Vol] 116 mmol/L High 98-109 [facility] Comment on above: Performed By: #### 6 873-4, 16903-6, 02472-9, CMP, 03925-2, HA1C, CBCA #### [facility] ([id number]) [address], [address] [place] [address] CO2 [Moles/Vol] 5 mmol/L Critically low 22-32 [facility] Comment on above: Performed By: #### 6 873-4, 58496-1, 64439-7, CMP, 26537-8, HA1C, CBCA #### [facility] ([id number]) [address], [address] [place] [address] Creatinine [Mass/Vol] 0.71 mg/dL Normal 0.40-1.00 [facility] Comment on above: Result Comment: METH OD TRACEABLE TO IDMS STANDARD Performed By: #### 6 873-4, 24543-2, 01653-7, CMP, 55517-9, HA1C, CBCA #### [facility] ([id number]) [address], [address] [place] [address] eGFR (CKD-EPI) NON-RACE DEPENDENT >90 Normal >59 [facility] Comment on above: Result Comment: Reported eGFR is based on the CKD-EPI 2020 equation that does not use a race coefficient. Performed By: #### 6 873-4, 46837-3, 44796-6, CMP, 42291-2, HA1C, CBCA #### [facility] ([id number]) [address], [address] [place] [address] Glucose [Mass/Vol] 260 mg/dL High 65-99 [facility] Comment on above: Performed By: #### 6 873-4, 34045-3, 53116-0, CMP, 29752-6, HA1C, CBCA #### [facility] ([id number]) [address], [address] [place] [address] Potassium [Moles/Vol] 4.6 mmol/L Normal 3.5-5.0 [facility] Comment on above: Performed By: #### 6 873-4, 63803-1, 38995-9, CMP, 52825-3, HA1C, CBCA #### [facility] ([id number]) [address], [address] [place] [address] Protein [Mass/Vol] 6.4 g/dL Normal 6.0-8.0 [facility] Comment on above: Performed By: #### 6 873-4, 82436-7, 58990-1, CMP, 41883-3, HA1C, CBCA #### [facility] ([id number]) [address], [address] [place] [address] Sodium [Moles/Vol] 141 mmol/L Normal 134-146 [facility] Comment on above: Performed By: #### 6 873-4, 65935-3, 96991-2, CMP, 07054-9, HA1C, CBCA #### [facility] ([id number]) [address] [facility], [address] [place] [address] Urea nitrogen [Mass/Vol] 16 mg/dL Normal 5-23 [facility] Comment on above: Performed By: #### 6 873-4, 98267-5, 71629-2, CMP, 81698-1, HA1C, CBCA #### [facility] ([id number]) [address] [facility], [address] [place] [address] Coding Summaryon 07-02-2023 Coding Summary [employer] 64 EqnenxhoYAt3yEb+PGhl YWQ+ZP0DNGXaB46zeSZp uB7mH9VQQGxGCfeuDBSX ICsNXzLzoaKqRE7esSDh ZXJu IC8+SP1oCMMcTyjzkPLf n3P7uBZ5H15meh6aLWtq fEG4HXCqTqEectrwf8fo zAt6AFjmHoakPnSc OEUlqQ30VZU7jF66Ge44 wWYsuDHie3gllTh8DeCz VXJwUIG5tUtrDCloq0Hh XQBpG91tkZWch3X3 IGNvbGxhcHNlOyBlbXB0 mC9zZUryjtpaz7jioaft Uag9nw74fCLdv7S3fEE0 U6UorhC5QFXulHEy VrllmEBRoN2lbyzit2wd aqvdZbXrMKTsAZy6FPx2 HQBraVifFfYmSI33FWQ9 OUZlzvKfO5FgKWSx oBpyMlJ8d0B1Kf7FT6MU VfbrW1YDQLVZFUwutSQ+ AI50qr65R5NeGzjyBrq1 XNDaUTX8qBG0hP2j HYQzOBogx1A8pOG6F4Lb auTbof7nc5kkKOWiBXnq E66akONbx2D7CRLjjVV4 MUAlhSxpNvBphJ56 Oyc+QOAovQevl6WsKkzr u0rqm6fxuBq6WgfaMYFf itEujFizAAB8s5IcOu8b SNHxjXF1tHL5gE3n EiFuAlW3PJtwR407IwBj tCUhZhyyD97gB1BghBO+ MDHlGsj2JLOejNskKY3o E4DhVTJelqwpdUFo cRgsNR9cCFDtsvysLJNz zK5zVASmC5g8VzDzWuR5 CBmuP5VkARJvahpnFg67 hZ2gEeTrZwW1JXdd P4HcpoJ4PMGnoEWvHQzh JPR6K72mb9Y7WDZkCYYv RVL7lFA8tD3gsWrmypou bGVmdDsgdmVydGlj CVbjJVhcJ484BLAxgQot PkNvZGluZyBEYXRlOiAg MDEvMDMvMjAyNDwvdGQ+ VLQmEQF0iYgrDGKr mUGiWLtzQd3xmCabvWxo FW4kKIIballjFJUpdD9l OTLrhPXvkIvqNR3jKKFf vgyex518DmLrHJZ2 OCRkzOOnU1OcwM0pCjHf LDRhLIJiZ6KzeCWiLPhe G227LOslPnI1HXIahdLg H9AaTDYdfBtiOkD1 k5D3Lw4Rc9HorpemN4Ev zCMfIjArYzenXMo5P7Rg PjwvdHI+WB26RJVnXK51 OQi2NNJ2bLgtCTyp LSBpY8DurU1hOzQeXCUw ZGRkOyc+PHRhYmxlIHdp ZHRoPScxMDAlJyBzdHls HW0sZt2tQBRzOETi oFbxbNDkZmLar2stRARd WZzxAI0bbJioN9RloFF7 GBZcd3c8Cs30C83fS2Ms dXA+ECCmuWZ4xWP9 kL9iOdWxJaL1NKccA037 RwNbeQBiVzeuf3cqe3sx jAl4GwW8OLSevdSjrApf GWP8n1WqJq39N60x IHdpZHRoPSIxNSUiIHZh fRogyd6ebG0hAq7+PGNv rPG3nCH8fP8rNpWrDjG0 TUwsC940LnPilXFf Zccxz1rry5nhmDe4IqOk SXKrcjRqqAktUIS7z9Sg Nd73E3NlfQmzr9HaOtp5 gf70qSHax7E4fCG1 V4DoQPGefgnlwJNzkTbg UF5xIVBinvywDKVssJ9l CEZoL0a4MrRlYqM3ADyp G8CkxhM2UNHsvDXr WOJclTIYbI4cgmmzn6ui vvgqUeDnSWIyWGk6NSh4 KVTbaCysHpEfHQJ5KyE4 NMG2zLVolD9biTnz rtiqpO3rHqi+JTH3hJWo sMQPCU7pTyxspLP+PHRk GND2nRmdMUstCAJspS0s KKGeK4l3UrJvCdY4 RYptG7AzjxI6FGMdkSId ZXJwvILNdM1jprmwi1je wjoyUjQxONRzMSv8NTa9 LWFsaWduOiBsZWZ0 InK1AGK4rHInsM1acQbw ixzepB3ySve+QmlydGgg UFO5RHy1G2JkRdr9RPHy kKzhHV1tiBGcWKav Jm1tzQcgsKmmIZ9sDOBz mgdch840IyVhq1neAYMl yLZkLGxfTAN3T07gd9S6 VYSzPLXkQDU5uCE5 wQ8rcVblmjfmtAEksXoz wqXnnGdnKJoqRYitO413 NQJllIpyKdIjLEw1Z7Ba Nee5TQUpdDajLY0c nTWpDXgrAg1adHtdaFjy QF0gEXCqmylra215HmHa v0ifUXLpwGPjDGjrWVT6 I26ba1O5QLJbNBJr OQZ2eIE8pB2caNkkbsbs bGVmdDsgdmVydGljYWwt PKpwI188XLJnyTccFjFn aCl0J6JpIwm4IQZm oDjzAD8pbKZdKCkmCb1z hSccwKslUV0tHQSansxx d459ZmLoe2cqGGKzlRHp IHzoBPI0S13lz5I6 HUPcORPmFGJ3hJG8gX1g bGlnbjogbGVmdDsgdmVy dUiaASnfAFvgJ142EVIf cDsnPlBhdGllbnQg IGjoNDr5W0KlSrqmlEW+ SZ83VYKtHO27eRXmbWEu h9wkzKo0BlUiYDAqPKM9 oXjeRQmew3SyUGYi I70kjVXbo4P7YKUzwCsy hRTeNeCpkEV6uC1zXLel tsxms6uiwmssUpcqy7bl ye90cE84F40qDBxy ZHRoPSIzMCUiIHZhbGln dg3hiS6jQj6+PGNvbCB3 iJC0vV2rOSAtBpI2CMkv Z433PfHqsTVeRhom r4wvz1wosOg6ReB4EEFp uwXokDbhTCL3m5ZvAr79 Z49fPErqCFQaKBIaOOPz VUTjxDfell9skQ1w Ii8+KFNjaNI9oMF8cS8r HpDcMmT8VLwpD895FaEi wAWzFpknS76nC4XjfRV+ ZVLuNwp2DPYugDfv UZ2zzJHrEHpvWp5sBXU8 NbItUwRaKNsvF7SfSNIa ezfkssaxeWG4XKTcYMFw uE96Cr7weYoyXEUp sYGTuD6bhcnjr8bnvydx AkImBHAwJOy6PPi9LOJj dCjyBlTiVBQ2PdP8ZYK6 tHHdpO7vmTfvsfhf cA1aQ1YjMNAnzjfmPr85 wG2cFcSsXcX8AYxtTaj+ DA0CRZCSYDMVIRmZJCJT ZJPQUCA1Q5NtQan6 JDEomWyjVI3cxXGiYKyi Mt9hfMzofIwaMV2nPGGo ipczVJNwwH5yGCQrwJQb cBmtXV2qOKMbuvhw b422LgEcCCQ2FOKzxSUa N5KywJ0vAcMkDJOdZZDs N8PpbETeCIbvP396JMvk CdO8PSZgrlCeF8Nv CADfiSvwOkY0i4C2Kn1n Db0gVS6sDJbpTR94NW85 jRIeo2F3iCS0L9XxUAHi lskyrwsdrKD9AYUz VQJnvY93tCLuVPubXp3d z6W4h230RFYgIIRxjW62 Jl9rdWbgJOEytGTTqK5y luruj0qxpyluNfCl MZSoVFl1JVj9YNStpZzf MlVsSKJ1WtQ6PBA1lZJj sZ5ufVjnqxmllR8lJey+ TvSjADBjjsO2M6Ka Uiu0CYMglRoiZU4hnJNz WBwuXg8kzZxbfSafDP3e RRZzbnenUNHjzZ8gOVCh zXYtbKvwMU2rDKBb mlhil465DgZyOLP5FBQo oGGvQ2BmfV8qJpQkBBPh EVIuL7KmkDJuWCfyL432 GJepRfO3PLIbotNo T2GwIDTcoUdwBeV9a4M1 Ze6VNY7AQXH2P1SlHea4 CWTujXiaLF2taRJhNUsz Rz3dtFxxtVezZI6s MPEbypjePNKogK4zEVUy dXXrjLboTK2qPBMjokmh i014UfXzJXE3XHKvuLOk F7AdcX4tHnCqGDHb PAYpO6PsyMErGOjtL641 POppUxL5DTJyzmEnM8Cc QVOljVzbXxY9n4T7Ul9D leWweLxwhbT0V1Lp PjwvdHI+NW58PRKvLE36 pJBjwQHph9tllUv5EnMg MNDhFBI5lOfgJRsif1Bc AMKeP29hgGKnf8T0 IGNvbGxhcHNlOyBlbXB0 aN1gZPevwqsmg7gqqpox Dtcdu7jffs18zX22E25h IHdpZHRoPSIzMCUi BFRpmUioqy2idV6jGt4+ BTUnpAA0wAL1hW2pOyYl JoX1VZzwJ445MdBvkRVf Vymhs0wcu3upgMt6 IjIwJSIgdmFsaWduPSJ0 f0MlJg12I12vPEffCJQb JGUmRQVvDAMmhVdehw0w sZ2aNg7+JX8tb8vn xe80jY77kQS+PHRkIHN0 vAtwTBygQUAhjX8tDDqg XlR5PIFwXqYtvI96eMQu MAxpTu8umVvpeXew ZS1vOGKqnxtgy468OpIf o8ywYQJusVJzXPxuNGS3 B67xu5Z5KOSdTGDaJWJ5 vIQ8fP3dmFmtdmkd bGVmdDsgdmVydGljYWwt VNwtN994MNMjhNdcBgHs cPTyT2irikNTCF5nAhrq dGQ+YBXpEVV0gTts IXndXFPozN3qQVNaO2x7 GeGfBpJ8UQezS3AoqqW7 LCYxdCNeTNMzlKPMmR3n zmspy7iufkogDiDe LKVwVHw0FHe6WDNuyJfx TxJdNZF4JtC5QNI4iYBg cE1iwBgtksgrwL2yDel+ RklOOjwvdGQ+PHRk LMV2xQhrQWfeOTKhvZ0t SIAiT8z5GyWxTzE9RBrt H5WptgN0AVSkgDOcZGFd zHXMsJ7eyghmy1cs envpPgXnRBSnAYi8YVp4 AWIlcXyqMgRwZWU2HaN0 FWB6aEUjdF7wuRsyqsni pR8bTzf+TVJOOjwv dGQ+OOUuIOQ5nQejIKjo APHuxE0wUHWvI9k4PeRm IbM0WCtzD2UpxbH4KVHe sZArHIQabHZJmC3c frwyw0ulauzcFsEwDGBq MWx6SYa5NREnaWqxAoJj NCU0ZyF9LDL8gSNhhQ5r xTutfzgqpU9bSll+ OLX4NJT6CR16HC03O9Hp PjwvdGFibGU+PHRhYmxl IHdpZHRoPScxMDAlJyBz dRoiFJ2hVp7cBXYy LWN (more content not included)... Normal [facility] Comprehensive metabolic pane galileo 07-02-2023 Albumin [Mass/Vol] 4.0 g/dL 3.2 - 5.3 g/dL [facility] ALP [Catalytic activity/Vol] 93 U/L 39 - 130 U/L [facility] ALT No additional P-5'-P [Catalytic activity/Vol] 17 U/L 0 - 31 U/L [facility] Anion gap [Moles/Vol] 20 mmol/L High 5 - 15 mmol/L [facility] AST [Catalytic activity/Vol] 25 U/L 0 - 41 U/L [facility] Bilirubin [Mass/Vol] 0.2 mg/dL Low 0.3 - 1 .2 mg/dL [facility] Calcium [Mass/Vol] 7.0 mg/dL Low 8.5 - 10. 5 mg/dL [facility] Chloride [Moles/Vol] 116 mmol/L High 98 - 10 9 mmol/L [facility] CO2 [Moles/Vol] 5 mmol/L Critically low 22 - 32 mmol/L [facility] Creatinine [Mass/Vol] 0.71 mg/dL 0.40 - 1.00 mg/dL [facility] Comment on above: METHOD TRACEABLE TO IDMS STANDARD eGFR (CKD-EPI)non-race dependent - PINF [facility] Comment on above: Reported eGFR is based on the CKD-EPI 2020 equation that does not use a race coefficient. Glucose [Mass/Vol] 260 mg/dL High 65 - 99 mg/dL [facility] Potassium [Moles/Vol] 4.6 mmol/L 3.5 - 5.0 mmol/L [facility] Protein [Mass/Vol] 6.4 g/dL 6.0 - 8.0 g/dL [facility] Sodium [Moles/Vol] 141 mmol/L 134 - 146 mmol/L [facility] Urea nitrogen [Mass/Vol] 16 mg/dL 5 - 23 mg/d L [facility] ELECTROLYTESon 07-02-2023 Anion gap [Moles/Vol] 13 mmol/L Normal 5-15 [facility] Comment on above: Performed By: #### 6 873-4, ELEC, 2776-06 ####[facility] ([id number])[address], [place] [address] Chloride [Moles/Vol] 118 mmol/L High 98-109 [facility] Comment on above: Performed By: #### 6 873-4, ELEC, 2776-06 ####[facility] ([id number])[address], [place] [address] CO2 [Moles/Vol] 9 mmol/L Critically low 22-32 [facility] Comment on above: Performed By: #### 6 873-4, ELEC, 2776-06 ####[facility] ([id number])[address] [address] Potassium [Moles/Vol] 3.5 mmol/L Normal 3.5-5.0 [facility] Comment on above: Performed By: #### 6 873-4, ELEC, 2776- ####[facility] ([id number])[address], [place] [address] Sodium [Moles/Vol] 140 mmol/L Normal 134-146 [facility] Comment on above: Performed By: #### 6 873-4, ELEC, 2777-1 ####[facility] ([id number])[address], [place] [address] Electrolyte panelon 07-02-19 24 Anion gap [Moles/Vol] 13 mmol/L 5 - 15 mmol/L [facility] Chloride [Moles/Vol] 118 mmol/L High 98 - 10 9 mmol/L [facility] CO2 [Moles/Vol] 9 mmol/L Critically low 22 - 32 mmol/L [facility] Potassium [Moles/Vol] 3.5 mmol/L 3.5 - 5.0 mmol/L [facility] Sodium [Moles/Vol] 140 mmol/L 134 - 146 mmol/L [facility] Glucose Glucometer (BldC) [M ass/Vol]on 07-02-2023 Glucose [Mass/Vol] 237 mg/dL High 65-99 [facility] Glucose [Mass/Vol] 287 mg/dL High 65-99 [facility] Glucose [Mass/Vol] 233 mg/dL High 65 - 99 mg/dL [facility] Interpretation and review of laboratory results Abnormal [facility] Glucose [Mass/Vol] 247 mg/dL High 65-99 [facility] Glucose [Mass/Vol] 237 mg/dL High 65 - 99 mg/dL [facility] Interpretation and review of laboratory results Abnormal [facility] Glucose [Mass/Vol] 287 mg/dL High 65 - 99 mg/dL [facility] Interpretation and review of laboratory results Abnormal [facility] [facility] Glucose [Mass/Vol] 254 mg/dL High 65-99 [facility] Glucose [Mass/Vol] 255 mg/dL High 65-99 [facility] Glucose [Mass/Vol] 247 mg/dL High 65 - 99 mg/dL [facility] Interpretation and review of laboratory results Abnormal [facility] Glucose [Mass/Vol] 254 mg/dL High 65 - 99 mg/dL [facility] Interpretation and review of laboratory results Abnormal [facility] Glucose [Mass/Vol] 231 mg/dL High 65-99 [facility] Glucose [Mass/Vol] 255 mg/dL High 65 - 99 mg/dL [facility] Interpretation and review of laboratory results Abnormal [facility] Glucose [Mass/Vol] 231 mg/dL High 65 - 99 mg/dL [facility] Interpretation and review of laboratory results Abnormal [facility] HGB A1C (GLYCO-HGB)on 2023 Glucose [Mass/Vol] 398 mg/dL Normal [facility] Comment on above: Performed By: #### 6 873-4, 52649-3, 32366-0, CMP, 68281-7, HA1C, CBCA #### [facility] ([id number]) [address] [place] [address] HbA1c (Bld) [Mass fraction] 15.5 % High 4.4-5.6 [facility] Comment on above: Result Comment: NOTE ADA Guidelines Result HgbA1c Normal : less than 5.7 % Prediabetes : 5.7 % to 6.4 % Diabetes : > 6.4 % Use with caution in patients with abnormal hemoglobin variants as the half-life of red blood cells and in vivo glycation rates are affected. Performed By: #### 6 873-4, 03735-3, 41554-4, CMP, 48173-4, HA1C, CBCA #### [facility] ([id number]) [address] [place] [address] Hemoglobin A1con 07-02-2023 Average glucose Estimated from glycated hemoglobin (Bld) [Mass/Vol] 398 mg/dL [facility] HbA1c (Bld) [Mass fraction] 15.5 % High 4.4 - 5.6 % [facility] Comment on above: NOTE ADA Guidelines Result HgbA1c Normal : less than 5.7 % Prediabetes : 5.7 % to 6.4 % Diabetes : > 6.4 % Use with caution in patients with abnormal hemoglobin variants as the half-life of red blood cells and in vivo glycation rates are affected. Interpretation and review of laboratory results Abnormal [facility] Lactateon 07-02-2023 Lactate (P denis) [Moles/Vol] 0.8 mmol/L 0.4 - 2.0 mmol/L [facility] Lactate (P denis) [Moles/Vol]o n 07-02-2023 Lactate [Moles/Vol] 0.8 mmol/L Normal 0.4-2.0 [facility] Comment on above: Performed By: #### 6 873-4, 85740-2, 33290-9, CMP, 08478-3, HA1C, CBCA #### [facility] ([id number]) [address], [address] [place] [address] [facility] MAGNESIUMon 07-02-2023 Magnesium [Mass/Vol] 1.7 mg/dL Low 1.8-2.6 [facility] Comment on above: Performed By: #### 6 873-4, 80686-1, 98430-6, CMP, 14357-2, HA1C, CBCA #### [facility] ([id number]) [address] [place] [address] Magnesiumon 07-02-2023 Magnesium [Mass/Vol] 1.7 mg/dL Low 1.8 - 2 .6 mg/dL [facility] Magnesium [Mass/Vol]on 07-02 Interpretation and review of laboratory results Abnormal [facility] No Panel Informationon 07-02 Interpretation and review of laboratory results Abnormal [facility] Interpretation and review of laboratory results Abnormal [facility] PHOSPHORUSon 07-02-2023 Phosphate [Mass/Vol] mg/dL Critically low 2.4-4.9 [facility] Comment on above: Performed By: #### 6 873-4, ELEC, 2777-1 ####[facility] ([id number])[address], [place] [address] Phosphoruson 07-02-2023 Phosphate [Mass/Vol] mg/dL Critically low 2.4 - 4.9 mg/dL [facility] TROPONIN Ion 07-02-2023 Troponin I.cardiac [Mass/Vol] 0.93 ng/mL Critically high 0.00-0.04 [facility] Comment on above: Result Comment: Concentrations greater than or equal to 0.05 ng/ml are considered elevated. Elevations of Troponin may be due to causes other than myocardial ischemia. Recommend serial Troponin testing be performed. Performed By: #### 6 873-4, 07304-4, 82149-6, CMP, 02720-5, HA1C, CBCA #### [facility] ([id number]) [address], [address] [place] [address] Troponin Ion 07-02-2023 Troponin I.cardiac [Mass/Vol] 0.93 ng/mL Critically high 0.00 - 0.04 ng/mL [facility] Comment on above: Concentrations greater than or equal to 0.05 ng/ml are considered elevated. Elevations of Troponin may be due to causes other than myocardial ischemia. Recommend serial Troponin testing be performed. VENOUS BLOOD GASon CAMI'S TEST Normal [facility] Comment on above: Performed By: #### V BG #### [facility] ([id number]) [address] [place] [address] BASE,DEFICIT 26.0 MMOL/L High 0.0-2.0 [facility] Comment on above: Performed By: #### V BG #### [facility] ([id number]) [address] [place] [address] Body temperature 98.6 [degF] Normal 37.0 [facility] Comment on above: Performed By: #### V BG #### [facility] ([id number]) [address] [place] [address] HCO3 (Bld) [Moles/Vol] 4.5 mmol/L Low 20.0-24.0 [facility] Comment on above: Performed By: #### V BG #### [facility] ([id number]) [address] [place] [address] INSP. O2 CONC. 21 % Normal [facility] Comment on above: Performed By: #### V BG #### [facility] ([id number]) [address] [place] [address] Oxygen saturation in Blood 25.0 % Low >80.0 [facility] Comment on above: Performed By: #### V BG #### [facility] ([id number]) [address] [place] [address] OXYGEN SOURCE [facility] Comment on above: Performed By: #### V BG #### [facility] ([id number]) [address] [place] [address] PCO2, VENOUS 20.1 MMHG Low 35-50 [facility] Comment on above: Performed By: #### V BG #### [facility] ([id number]) [address] [place] [address] PH, VENOUS 6.956 Low 7.320-7.420 [facility] Comment on above: Performed By: #### V BG #### [facility] ([id number]) [address] [place] [address] PO2, VENOUS 27 MMHG Low 30-50 [facility] Comment on above: Performed By: #### V BG #### [facility] ([id number]) [address] [place] [address] SAMPLE SITE N/A Normal [facility] Comment on above: Performed By: #### V BG #### [facility] ([id number]) [address] [place] [address] SAMPLE TYPE VENOUS Normal [facility] Comment on above: Performed By: #### V BG #### [facility] ([id number]) [address] [place] [address] C Bloodon 06-17-2023 C Blood No growth at 5 Days Normal [facility] Comment on above: Performed By: #### 6 [id number] ####[facility] (DEFAULT)[address] [place] [address] Coding Queryon 06-17-2023 Coding Query HIM CODING QUERY FORM Accurate coding and billing requires that the principal diagnosis, secondary diagnosis and procedures be supported by physician documentation and that this documentation be reflected in the discharge summary (if required for patient type). Any time this information is not complete, it is the chain splitter?s responsibility to query the physician. Based on medical record review, the following issues have been identified: (XX ) Please complete ED Note. Thank you for your cooperation and timely attention to this matter. Magnolia griffin [Electronically Signed on: 06/26/2023 17:47 EST] Jaun Uribe MD [Verified on: 06/26/2023 17:47 EST] Jaun Uribe MD [Transcribed on: 06/17/2023 15:38 EST] [facility] Provider Orderson 06-17-2023 Provider Orders [id number] [facility] 06-16-2023 Consent Forms [id number]# [facility] 06-16-2023 Provider Orders [id number] #1.00[facility] Telemetry Stripson Telemetry Strips [id number] [facility] Acute Hepatitis LCon 023 HBsAg Screen LC Negative Invalid Interpretation Code Negative [facility] Comment on above: Performed By: #### 0 [id number] #### [facility] (DEFAULT) [address] [place] [address] Hep A Ab, IgM LC Negative Invalid Interpretation Code Negative [facility] Comment on above: Performed By: #### 1 [id number] #### [facility] (DEFAULT) [address] [place] [address] Hep B Core Ab, IgM LC Negative Invalid Interpretation Code Negative [facility] Comment on above: Performed By: #### 6 [id number] #### [facility] (DEFAULT) [address] [place] [address] Hepatitis C Ab LC Non-Reactive Invalid Interpretation Code Non Reactive [facility] Comment on above: Result Comment: Perf ormed At: [facility] [address] [id number] Vilma Ho PhD Ph:[phone] Performed By: #### 6 [id number] #### [facility] (DEFAULT) [address] [place] [address]99 RPR, Rfx Qn RPR/Confirm TP L Con 06-14-2023 RPR LC Non-Reactive Invalid Interpretation Code Non Reactive [facility] Comment on above: Result Comment: Perf ormed At: [facility] [address] [id number] Vilma Ho PhD Ph:[phone] Performed By: #### 2 708462, [id number], [id number] #### [facility] (DEFAULT) [address] [place] [address] 38559 .Auto Diff - Auto Nolan % 7 % Normal 07-11 [facility] Comment on above: Performed By: #### 2 730625, [id number], 5211768 #### [facility] (DEFAULT) [address] [place] [address]246 Baso Abs# 0.0 x10 Normal 0.0-0.2 [facility] Comment on above: Performed By: #### 2 208298, [id number], 4083230 #### [facility] (DEFAULT) [address] [place] [address] 58165 Basophils/100 WBC (Bld) 0.4 % Normal 0.2-2.0 [facility] Comment on above: Performed By: #### 2 892120, [id number], 5274289 #### [facility] (DEFAULT) [address] [place] [address] 25631 Eos Abs# 0.2 x10 Normal 0.0-0.4 [facility] Comment on above: Performed By: #### 2 579195, [id number], 1470204 #### [facility] (DEFAULT) [address] [place] [address]2356 Eosinophils/100 WBC (Bld) 2.2 % Normal 0.9-4.0 [facility] Comment on above: Performed By: #### 2 737319, [id number], 8283298 #### [facility] (DEFAULT) [address] [place] [address] 28980 Lymph Abs# 2.7 x10 Normal 1.3-2.9 [facility] Comment on above: Performed By: #### 2 675957, [id number], 2422723 #### [facility] (DEFAULT) [address] [place] [address] 51424 Lymphocytes/100 WBC (Bld) 36 % Normal 14-48 [facility] Comment on above: Performed By: #### 2 263708, [id number], 7050624 #### [facility] (DEFAULT) [address] [place] [address] 96606 Nolan Abs# 0.5 x10 Normal 0.0-0.8 [facility] Comment on above: Performed By: #### 2 295125, [id number], 2169142 #### [facility] (DEFAULT) [address] [place] [address] 93485 Neut Abs# 4.0 x10 Normal 1.5-9.2 [facility] Comment on above: Performed By: #### 2 009427, [id number], 0219833 #### [facility] (DEFAULT) [address] [place] [address] 35512 Neutrophils/100 WBC (Bld) 54 % Normal 44-88 [facility] Comment on above: Performed By: #### 2 196095, [id number], 8785703 #### [facility] (DEFAULT) [address] [place] [address] 13235 [facility] 06-13-2023 eGFR AA >60 Invalid Interpretation Code [facility] Comment on above: Order Comment: While on Insulin Drip Performed By: #### 2 586968, [id number], 5603738 #### [facility] (DEFAULT) [address] [place] [address] 60457 eGFR Non AA >60 Invalid Interpretation Code [facility] Comment on above: Order Comment: While on Insulin Drip Performed By: #### 2 096835, [id number], 4713754 #### [facility] (DEFAULT) [address] [place] [address] 16018 Anion gap [Moles/Vol] 8.7 mmol/L Normal 5.0-19.0 [facility] Comment on above: Order Comment: While on Insulin Drip Performed By: #### 2 821765, [id number], 7368506 #### [facility] (DEFAULT) [address] [place] [address] 80497 Calcium [Mass/Vol] 8.0 mg/dL Low 8.9-10.3 [facility] Comment on above: Order Comment: While on Insulin Drip Performed By: #### 2 691363, [id number], 3468941 #### [facility] (DEFAULT) [address] [place] [address] 00786 Chloride [Moles/Vol] 106 mmol/L Normal 101-111 [facility] Comment on above: Order Comment: While on Insulin Drip Performed By: #### 2 855760, [id number], 1751372 #### [facility] (DEFAULT) [address] [place] [address] 03863 CO2 [Moles/Vol] 21 mmol/L Normal 21-32 [facility] Comment on above: Order Comment: While on Insulin Drip Performed By: #### 2 690678, [id number], 2121976 #### [facility] (DEFAULT) [address] [place] [address] 89476 Creatinine [Mass/Vol] 0.58 mg/dL Low 0.60-1.30 [facility] Comment on above: Order Comment: While on Insulin Drip Performed By: #### 2 768425, [id number], 3727817 #### [facility] (DEFAULT) [address] [place] [address] 47579 Glucose [Mass/Vol] 388.0 mg/dL High 74.0-118.0 [facility] Comment on above: Order Comment: While on Insulin Drip Performed By: #### 2 521777, [id number], 5996662 #### [facility] (DEFAULT) [address] [place] [address] 78970 Osmolality 280 mOsm/L Invalid Interpretation Code [facility] Comment on above: Order Comment: While on Insulin Drip Performed By: #### 2 763451, [id number], 9231653 #### [facility] (DEFAULT) [address] [place] [address] 31431 Potassium [Moles/Vol] 3.7 mmol/L Normal 3.6-5.1 [facility] Comment on above: Order Comment: While on Insulin Drip Performed By: #### 2 178697, [id number], 2973627 #### [facility] (DEFAULT) [address] [place] [address] 09392 Sodium [Moles/Vol] 132.0 mmol/L Low 136.0-144.0 [facility] Comment on above: Order Comment: While on Insulin Drip Performed By: #### 2 715370, [id number], 7354266 #### [facility] (DEFAULT) [address] [place] [address] 08960 Urea nitrogen [Mass/Vol] 12 mg/dL Normal 8- [facility] Comment on above: Order Comment: While on Insulin Drip Performed By: #### 2 025779, [id number], 1741448 #### [facility] (DEFAULT) [address] [place] [address] 91377 Urea nitrogen/Creatinine [Mass ratio] 20.6 mg/mg High 4.6-16.2 [facility] Comment on above: Order Comment: While on Insulin Drip Performed By: #### 2 315294, [id number], 2447177 #### [facility] (DEFAULT) [address] [place] [address] 09526 eGFR AA >60 Invalid Interpretation Code [facility] Comment on above: Order Comment: While on Insulin Drip Performed By: #### 2 729042, [id number], 5216946 ####[facility] (DEFAULT)[address] [place] [address] 59785 eGFR Non AA >60 Invalid Interpretation Code [facility] Comment on above: Order Comment: While on Insulin Drip Performed By: #### 2 655739, [id number], 8589679 ####[facility] (DEFAULT)[address] [place] [address] 45839 Anion gap [Moles/Vol] 1.6 mmol/L Low 5.0-19.0 [facility] Comment on above: Order Comment: While on Insulin Drip Performed By: #### 2 729560, [id number], 8880127 ####[facility] (DEFAULT)[address] [place] [address] 22994 Calcium [Mass/Vol] 7.6 mg/dL Low 8.9-10.3 [facility] Comment on above: Order Comment: While on Insulin Drip Performed By: #### 2 324629, [id number], 1242556 ####[facility] (DEFAULT)[address] [place] [address] 11508 Chloride [Moles/Vol] 113 mmol/L High 101-111 [facility] Comment on above: Order Comment: While on Insulin Drip Performed By: #### 2 859804, [id number], 4931647 ####[facility] (DEFAULT)[address] [place] [address] 67057 CO2 [Moles/Vol] 23 mmol/L Normal 21-32 [facility] Comment on above: Order Comment: While on Insulin Drip Performed By: #### 2 974455, [id number], 7338802 ####[facility] (DEFAULT)[address] [place] [address] 79500 Creatinine [Mass/Vol] 0.57 mg/dL Low 0.60-1.30 [facility] Comment on above: Order Comment: While on Insulin Drip Performed By: #### 2 299409, [id number], 1061593 ####[facility] (DEFAULT)[address] [place] [address] 03155 Glucose [Mass/Vol] 234.0 mg/dL High 74.0-118.0 [facility] Comment on above: Order Comment: While on Insulin Drip Performed By: #### 2 588613, [id number], 7034859 ####[facility] (DEFAULT)[address] [place] [address] 12502 Osmolality 275 mOsm/L Invalid Interpretation Code [facility] Comment on above: Order Comment: While on Insulin Drip Performed By: #### 2 442854, [id number], 9724487 ####[facility] (DEFAULT)[address] [place] [address] 40525 Potassium [Moles/Vol] 3.6 mmol/L Normal 3.6-5.1 [facility] Comment on above: Order Comment: While on Insulin Drip Performed By: #### 2 284293, [id number], 5728382 ####[facility] (DEFAULT)[address] [place] [address] Sodium [Moles/Vol] 134.0 mmol/L Low 136.0-144.0 [facility] Comment on above: Order Comment: While on Insulin Drip Performed By: #### 2 859928, [id number], 9051990 ####[facility] (DEFAULT)[address] [place] [address] Urea nitrogen [Mass/Vol] 11 mg/dL Normal 8-26 [facility] Comment on above: Order Comment: While on Insulin Drip Performed By: #### 2 958666, 1268351078, 6137377 ####[facility] (DEFAULT)[address] [place] [address] Urea nitrogen/Creatinine [Mass ratio] 19.2 mg/mg High 4.6-16.2 [facility] Comment on above: Order Comment: While on Insulin Drip Performed By: #### 2 127222, [id number], 2546037 ####[facility] (DEFAULT)[address] [place] [address] CBC w/ Auto Diffon 3 Erythrocyte distribution width (RBC) [Ratio] 15.1 % High 11.5-15.0 [facility] Comment on above: Performed By: #### 2 258817, [id number], 5640039 #### [facility] (DEFAULT) [address] [place] [address] Hematocrit (Bld) [Volume fraction] 32.3 % Low 33.7-40.4 [facility] Comment on above: Performed By: #### 2 306110, [id number], 0608901 #### [facility] (DEFAULT) [address] [place] [address] Hemoglobin (Bld) [Mass/Vol] 10.6 g/dL Low 11.3-15.9 [facility] Comment on above: Performed By: #### 2 500755, [id number], 1438402 #### [facility] (DEFAULT) [address] [place] [address] 73182 Man Diff? Auto Invalid Interpretation Code [facility] Comment on above: Performed By: #### 2 413668, [id number], 6379098 #### [facility] (DEFAULT) [address] [place] [address] 00076 MCH (RBC) [Entitic mass] 26 pg Normal 24-34 [facility] Comment on above: Performed By: #### 2 681591, [id number], 4013426 #### [facility] (DEFAULT) [address] [place] [address] 78261 MCHC (RBC) [Mass/Vol] 33 g/dL Normal 26-37 [facility] Comment on above: Performed By: #### 2 522593, [id number], 5036840 #### [facility] (DEFAULT) [address] [place] [address] 70574 MCV (RBC) [Entitic vol] 78 fL Low 81-100 [facility] Comment on above: Performed By: #### 2 459360, [id number], 7964221 #### [facility] (DEFAULT) [address] [place] [address] 62621 Platelet 320 x10 Normal 138-427 [facility] Comment on above: Performed By: #### 2 881303, [id number], 1113143 #### [facility] (DEFAULT) [address] [place] [address] 33841 Platelet mean volume (Bld) [Entitic vol] 7.2 fL Normal 6.3-10.2 [facility] Comment on above: Performed By: #### 2 521777, [id number], 4862311 #### [facility] (DEFAULT) [address] [place] [address] 95871 RBC 4.14 x10 Normal 3.70-5.30 [facility] Comment on above: Performed By: #### 2 678031, [id number], 8014258 #### [facility] (DEFAULT) [address] [place] [address] 95005 WBC 7.4 x10 Normal 3.5-10.5 [facility] Comment on above: Performed By: #### 2 154686, [id number], 7114960 #### [facility] (DEFAULT) [address] [place] [address] 10535 CMP Standardon 06-13-2023 eGFR Non AA >60 Invalid Interpretation Code [facility] Comment on above: Performed By: #### 2 083991, [id number], 0983346 #### [facility] (DEFAULT) [address] [place] [address] 23469 eGFR AA >60 Invalid Interpretation Code [facility] Comment on above: Performed By: #### 2 128747, [id number], 0557981 #### [facility] (DEFAULT) [address] [place] [address] 28457 Albumin [Mass/Vol] 3.1 g/dL Low 3.5-5.0 [facility] Comment on above: Performed By: #### 2 436067, [id number], 5467535 #### [facility] (DEFAULT) [address] [place] [address] 51285 Albumin/Globulin [Mass ratio] 1.1 {ratio} Low 1.4-2.6 [facility] Comment on above: Performed By: #### 2 180093, [id number], 4506906 #### [facility] (DEFAULT) [address] [place] [address] 62215 Alk Phos 59 IU/L Normal 32-91 [facility] Comment on above: Performed By: #### 2 524630, [id number], 8118359 #### [facility] (DEFAULT) [address] [place] [address] 03194 ALT [Catalytic activity/Vol] 17.0 U/L Normal 14.0-54.0 [facility] Comment on above: Performed By: #### 2 696092, [id number], 6128255 #### [facility] (DEFAULT) [address] [place] [address] 95618 Anion gap [Moles/Vol] 7.7 mmol/L Normal 5.0-19.0 [facility] Comment on above: Performed By: #### 2 188321, [id number], 5933691 #### [facility] (DEFAULT) [address] [place] [address] 99326 AST [Catalytic activity/Vol] 15 U/L Normal 15-41 [facility] Comment on above: Performed By: #### 2 418792, [id number], 0507346 #### [facility] (DEFAULT) [address] [place] [address] 42412 Bili Total 0.4 mg/dL Normal 0.3-1.2 [facility] Comment on above: Performed By: #### 2 521602, [id number], 6059988 #### [facility] (DEFAULT) [address] [place] [address] 09864 Calcium [Mass/Vol] 8.1 mg/dL Low 8.9-10.3 [facility] Comment on above: Performed By: #### 2 587729, [id number], 7671011 #### [facility] (DEFAULT) [address] [place] [address] 92332 Chloride [Moles/Vol] 106 mmol/L Normal 101-111 [facility] Comment on above: Performed By: #### 2 829323, [id number], 3852495 #### [facility] (DEFAULT) [address] [place] [address] 97148 CO2 [Moles/Vol] 24 mmol/L Normal 21-32 [facility] Comment on above: Performed By: #### 2 895003, [id number], 8307935 #### [facility] (DEFAULT) [address] [place] [address] 09671 Creatinine [Mass/Vol] 0.49 mg/dL Low 0.60-1.30 [facility] Comment on above: Performed By: #### 2 031891, [id number], 2361661 #### [facility] (DEFAULT) [address] [place] [address] 11959 Globulin (S) [Mass/Vol] 2.7 g/dL Normal 1.5-4.3 [facility] Comment on above: Performed By: #### 2 864515, [id number], 7437660 #### [facility] (DEFAULT) [address] [place] [address] 93916 Glucose [Mass/Vol] 128.0 mg/dL High 74.0-118.0 [facility] Comment on above: Performed By: #### 2 036875, [id number], 3139895 #### [facility] (DEFAULT) [address] [place] [address] 65718 Osmolality 269 mOsm/L Invalid Interpretation Code [facility] Comment on above: Performed By: #### 2 285204, [id number], 8301734 #### [facility] (DEFAULT) [address] [place] [address] 79260 Potassium [Moles/Vol] 3.7 mmol/L Normal 3.6-5.1 [facility] Comment on above: Performed By: #### 2 819559, [id number], 8853065 #### [facility] (DEFAULT) [address] [place] [address] 09393 Protein [Mass/Vol] 5.8 g/dL Low 6.5-8.1 [facility] Comment on above: Performed By: #### 2 818893, 3619243612, 0801185 #### [facility] (DEFAULT) [address] [place] [address] 14473 Sodium [Moles/Vol] 134.0 mmol/L Low 136.0-144.0 [facility] Comment on above: Performed By: #### 2 173748, [id number], 4312017 #### [facility] (DEFAULT) [address] [place] [address] 65643 Urea nitrogen [Mass/Vol] 11 mg/dL Normal 8-26 [facility] Comment on above: Performed By: #### 2 031252, [id number], 1672993 #### [facility] (DEFAULT) [address] [place] [address] 92789 Urea nitrogen/Creatinine [Mass ratio] 22.4 mg/mg High 4.6-16.2 [facility] Comment on above: Performed By: #### 2 419112, 1291905573, 4253126 #### [facility] (DEFAULT) [address] [place] [address] Case Management Noteon 06-13 Case Management Note [id number][facility]23 Consent Forms [id number] [facility] HgbA1c Standardon 06-13-2023 .Hb 13.4 Invalid Interpretation Code [facility] Comment on above: Performed By: #### 1 [id number] ####[facility] (DEFAULT)[address] [place] [address] 01007 .Hgb A1c 2.01 g/dL Invalid Interpretation Code [facility] Comment on above: Performed By: #### 1 [id number] ####[facility] (DEFAULT)[address] [place] [address] 31009 Glucose [Mass/Vol] 407 mg/dL Invalid Interpretation Code [facility] Comment on above: Performed By: #### 1 [id number] ####[facility] (DEFAULT)[address] [place] [address] 53971 HbA1c (Bld) [Mass fraction] 15.8 % High 4.6-6.2 [facility] Comment on above: Performed By: #### 1 [id number] ####[facility] (DEFAULT)[address] [place] [address] 48236 Magnesiumon 06-13-2023 Magnesium [Mass/Vol] 1.87 mg/dL Normal 1.80-2.50 [facility] Comment on above: Performed By: #### 2 636734, [id number], 1823218 #### [facility] (DEFAULT) [address] [place] [address] 70586 Magnesium [Mass/Vol] 1.84 mg/dL Normal 1.80-2.50 [facility] Comment on above: Order Comment: While on Insulin Drip Performed By: #### 2 368521, [id number], 1242171 #### [facility] (DEFAULT) [address] [place], [place] [address] Magnesium [Mass/Vol] 2.02 mg/dL Normal 1.80-2.50 [facility] Comment on above: Order Comment: While on Insulin Drip Performed By: #### 2 593348, [id number], 2715809 ####[facility] (DEFAULT)[address] [place] [address] Nutrition Noteon 06-13-2023 Nutrition Note met with [...] in her van; just recently released from long-term - showed me her two ankle bracelets [...] (insulin pump); note current A1c 15.9%patient sees crm coordinator in [place] monthly (when she is able); encouraged patient to call endo's office to make another appt - also to call customer service at [facility] to get another remote so she can use her pump; ? patient to be sent home with insulin/pens for bg management after discharge; discussed that once patient is stable to have endo send referral to [facility] so she can come see me and mesh worker FELICIA for some diabetes education; unsure if [...] assist prn. ts Pt left AMA. Normal [facility] POCT Glucose Levelon 06-13- 023 Glucose, POC See Comment Invalid Interpretation Code 74118 [facility] Comment on above: Result Comment: Ruperto evans order, remove 1 diane Rodarte in ICU 06/13/2023 08:10:39 EST JW Performed By: #### 4 [id number] #### [facility] (DEFAULT) [address] [place] [address] 02958 Glucose [Mass/Vol] 191 mg/dL High 74-118 [facility] Comment on above: Performed By: #### 2 650882, [id number], 3935994 #### [facility] (DEFAULT) [address] [place] [address] 03297 Glucose [Mass/Vol] 129 mg/dL High 74-118 [facility] Comment on above: Performed By: #### 4 [id number] #### [facility] (DEFAULT) [address] [place] [address] 79328 Glucose [Mass/Vol] 119 mg/dL High 74-118 [facility] Comment on above: Performed By: #### 4 [id number] #### [facility] (DEFAULT) [address] [place] [address] 36282 Glucose [Mass/Vol] 193 mg/dL High 74-118 [facility] Comment on above: Performed By: #### 4 [id number] ####[facility] (DEFAULT)[address] [place] [address] 33953 Glucose [Mass/Vol] 294 mg/dL High 74-118 [facility] Comment on above: Performed By: #### 7 [id number], [id number] #### [facility] (DEFAULT) [address] [place] [address] 98599 Glucose [Mass/Vol] 362 mg/dL High 74-118 [facility] Comment on above: Performed By: #### 7 [id number], [id number] #### [facility] (DEFAULT) [address] [place] [address] 65000 Glucose [Mass/Vol] 234 mg/dL High 74-118 [facility] Comment on above: Performed By: #### 2 034535, [id number], 5307237 #### [facility] (DEFAULT) [address] [place] [address] 68616 Glucose [Mass/Vol] 185 mg/dL High 74-118 [facility] Comment on above: Performed By: #### 4 [id number] ####[facility] (DEFAULT)[address] [place] [address] 11358 Glucose [Mass/Vol] 165 mg/dL High 74-118 [facility] Comment on above: Performed By: #### 4 [id number] #### [facility] (DEFAULT) [address] [place] [address] 06416 Phoson 06-13-2023 Phosphate [Mass/Vol] 2.3 mg/dL Low 2.5-4.6 [facility] Comment on above: Performed By: #### 2 395820, [id number], 1708932 #### [facility] (DEFAULT) [address] [place] [address] 08704 Phosphate [Mass/Vol] 2.2 mg/dL Low 2.5-4.6 [facility] Comment on above: Performed By: #### 2 525617, 4155451595, 1484639 ####[facility] (DEFAULT)[address] [place] [address] 04146 Phosphate [Mass/Vol] 2.5 mg/dL Normal 2.5-4.6 [facility] Comment on above: Performed By: #### 2 626614, 3805024249, 0746494 ####[facility] (DEFAULT)[address] [place] [address] 77991 Progress Note - Nurseon 05-30 Progress Note - Nurse Patient left AMA. Patient wanted to leave today. Dr. Payne wanted to keep her til tomorrow. She is out of her medications. [Electronically Signed on: 06/13/2023 10:30 EST] Aster Bernal RN [Verified on: 06/13/2023 10:30 EST] Aster Bernal RN [facility] Progress Note - Nurse Patient called Connor [...] on: 06/13/2023 10:32 EST] Aster Bernal RN [facility] Progress Note - Nurse Patient states thea [...] 06/13/2023 06:55 EST] Zenaida Yarbrough RN Normal [facility] Trigon 06-13-2023 Triglyceride [Mass/Vol] 177.0 mg/dL High 0.0-150.0 [facility] Comment on above: Performed By: #### 2 338254, [id number], 5560509 #### [facility] (DEFAULT) [address] [place] [address] .Auto Diff 1on 06-12-2023 Auto Nolan % 2 % Normal 07-11 [facility] Comment on above: Performed By: #### 1 3519133, 0429812526, 8077690510, 5973524418, 9647098, 9279987194, 3787537400, 2120238719, 0861683511 ####[facility] (DEFAULT)[address] [place] [address] Baso Abs# 0.1 x10 Normal 0.0-0.2 [facility] Comment on above: Performed By: #### 1 6322571, 7007161012, 8857817928, 9583772635, 3720900, 7905536872, 1146496567, 2019165450, 2192352429 ####[facility] (DEFAULT)[address] [place] [address] Basophils/100 WBC (Bld) 1.1 % Normal 0.2-2.0 [facility] Comment on above: Performed By: #### 1 2099681, 4086801718, 9777551189, 1172734631, 2988720, 1393304726, 2410812083, 9323009705, 8414905832 ####[facility] (DEFAULT)[address] [place] [address] Eos Abs# 0.0 x10 Normal 0.0-0.4 [facility] Comment on above: Performed By: #### 1 1074439, 9853525435, 8819570908, 0223701596, 3921369, 0321198223, 3519854988, 7241699975, 6948780493 ####[facility] (DEFAULT)[address] [place] [address] 59122 Eosinophils/100 WBC (Bld) 0.6 % Low 0.9-4.0 [facility] Comment on above: Performed By: #### 1 0816759, 7102826404, 4442166818, 6370485733, 8334038, 6241347618, 8130948383, 1946667017, 8474372836 ####[facility] (DEFAULT)[address] [place] [address] 15543 Lymph Abs# 0.9 x10 Low 1.3-2.9 [facility] Comment on above: Performed By: #### 1 1245608, 7258793490, 5624696199, 8818894556, 4507332, 2528742327, 2379389235, 9742423957, 2386786240 ####[facility] (DEFAULT)[address] [place] [address] 30600 Lymphocytes/100 WBC (Bld) 14 % Normal 14-48 [facility] Comment on above: Performed By: #### 1 3496818, 0917903316, 5474291727, 1676799813, 6471861, 7048794259, 8457894989, 6517580350, 7307246287 ####[facility] (DEFAULT)[address] [place] [address] 21400 Nolan Abs# 0.2 x10 Normal 0.0-0.8 [facility] Comment on above: Performed By: #### 1 6130170, 1207727154, 4650411903, 1394007803, 7047560, 1535655092, 0452572412, 8136768737, 5743547103 ####[facility] (DEFAULT)[address] [place] [address] 16091 Neut Abs# 5.6 x10 Normal 1.5-9.2 [facility] Comment on above: Performed By: #### 1 8017453, 3678512457, 0238009360, 6415166043, 5652185, 4956054343, 6319424147, 7797962165, 4101823786 ####[facility] (DEFAULT)[address] [place] [address] 73455 Neutrophils/100 WBC (Bld) 82 % Normal 44-88 [facility] Comment on above: Performed By: #### 1 8509543, 9297814596, 4733251935, 6703494799, 8032683, 4559219421, 2668415811, 1345740352, 1647428552 ####[facility] (DEFAULT)[address] [place] [address] 70235 Arterial Blood Gas Standardo n 06-12-2023 Base Excess Art -17.3 mmol/L Low -3.3-2.3 [facility] Comment on above: Performed By: #### 2 117595, 7546389711, 0721343 #### [facility] (DEFAULT) [address] [place] [address] 92029 Breakpoint Hemo Normal [facility] Comment on above: Performed By: #### 2 578799, 6480749901, 0396189 #### [facility] (DEFAULT) [address] [place] [address] 48379 Device Room Air Normal [facility] Comment on above: Performed By: #### 2 821750, 3907299690, 5379256 #### [facility] (DEFAULT) [address] [place] [address] 18195 Fio2 Art 21.0 % Normal 21.0-100.0 [facility] Comment on above: Performed By: #### 2 954926, 0435414575, 8575760 #### [facility] (DEFAULT) [address] [place] [address] 38583 HCO3 (Bld) [Moles/Vol] 9.4 mmol/L Low 22.0-27.0 [facility] Comment on above: Performed By: #### 2 836931, 8901646957, 3937019 #### [facility] (DEFAULT) [address] [place] [address] 97647 Oxygen saturation in Blood 97.8 % Normal 95.0-100.0 [facility] Comment on above: Performed By: #### 2 201672, 1097216038, 5007487 #### [facility] (DEFAULT) [address] [place] [address] 57926 pCO2 Art 25 mmHg Low 34-44 [facility] Comment on above: Performed By: #### 2 382620, 0579449100, 3971279 #### [facility] (DEFAULT) [address] [place] [address] 68719 pH Art 7.18 Critically abnormal 7.37-7.44 [facility] Comment on above: Result Comment: Resu lts handed to Dr Uribe by on 06/12/2023 @ 1302, RBD Performed By: #### 2 770199, 5751396641, 9758707 #### [facility] (DEFAULT) [address] [place] [address] 20216 pO2 Art 118 mmHg High 75-100 [facility] Comment on above: Performed By: #### 2 942083, 7681858867, 3468047 #### [facility] (DEFAULT) [address] [place] [address] 73724 Puncture Site Right Brachial Normal [facility] Comment on above: Performed By: #### 2 297700, 6428074811, 0492539 #### [facility] (DEFAULT) [address] [place] [address] 29872 Rate: 20 Invalid Interpretation Code [facility] Comment on above: Performed By: #### 2 553780, 5161218011, 2606208 #### [facility] (DEFAULT) [address] [place] [address] 40327 BMP Standardon 06-12-2023 eGFR Non AA >60 Invalid Interpretation Code [facility] Comment on above: Order Comment: While on Insulin Drip Performed By: #### 2 940472, 5315887672, 0986252 #### [facility] (DEFAULT) [address] [place] [address] 94356 eGFR AA >60 Invalid Interpretation Code [facility] Comment on above: Order Comment: While on Insulin Drip Performed By: #### 2 078846, 5598530981, 8860425 #### [facility] (DEFAULT) [address] [place] [address] 47467 Anion gap [Moles/Vol] 7.9 mmol/L Normal 5.0-19.0 [facility] Comment on above: Order Comment: While on Insulin Drip Performed By: #### 2 648525, 6393012835, 8423956 #### [facility] (DEFAULT) [address] [place] [address] 01189 Calcium [Mass/Vol] 7.7 mg/dL Low 8.9-10.3 [facility] Comment on above: Order Comment: While on Insulin Drip Performed By: #### 2 657898, 3510358723, 5711664 #### [facility] (DEFAULT) [address] [place] [address] 36277 Chloride [Moles/Vol] 110 mmol/L Normal 101-111 [facility] Comment on above: Order Comment: While on Insulin Drip Performed By: #### 2 080797, 6739627862, 4232727 #### [facility] (DEFAULT) [address] [place] [address] 17369 CO2 [Moles/Vol] 19 mmol/L Low 21-32 [facility] Comment on above: Order Comment: While on Insulin Drip Performed By: #### 2 866259, 6457672206, 0762797 #### [facility] (DEFAULT) [address] [place] [address] 27649 Creatinine [Mass/Vol] 0.90 mg/dL Normal 0.60-1.30 [facility] Comment on above: Order Comment: While on Insulin Drip Performed By: #### 2 263350, 0525722603, 0664022 #### [facility] (DEFAULT) [address] [place] [address] 11425 Glucose [Mass/Vol] 361.0 mg/dL High 74.0-118.0 [facility] Comment on above: Order Comment: While on Insulin Drip Performed By: #### 2 248119, 7904729252, 2880330 #### [facility] (DEFAULT) [address] [place] [address] 62473 Osmolality 280 mOsm/L Invalid Interpretation Code [facility] Comment on above: Order Comment: While on Insulin Drip Performed By: #### 2 366385, 1038180154, 5062924 #### [facility] (DEFAULT) [address] [place] [address] 58054 Potassium [Moles/Vol] 3.9 mmol/L Normal 3.6-5.1 [facility] Comment on above: Order Comment: While on Insulin Drip Performed By: #### 2 504858, 2872410366, 4855413 #### [facility] (DEFAULT) [address] [place] [address] 32939 Sodium [Moles/Vol] 133.0 mmol/L Low 136.0-144.0 [facility] Comment on above: Order Comment: While on Insulin Drip Performed By: #### 2 410722, 3942562419, 5533850 #### [facility] (DEFAULT) [address] [place] [address] 28365 Urea nitrogen [Mass/Vol] 11 mg/dL Normal 8-26 [facility] Comment on above: Order Comment: While on Insulin Drip Performed By: #### 2 492745, 8812339151, 5748152 #### [facility] (DEFAULT) [address] [place] [address] Urea nitrogen/Creatinine [Mass ratio] 12.2 mg/mg Normal 4.6-16.2 [facility] Comment on above: Order Comment: While on Insulin Drip Performed By: #### 2 942878, 4192958996, 6827314 #### [facility] (DEFAULT) [address] [place] [address] 19053 Breakpoint Chem Normal [facility] Comment on above: Performed By: #### 1 7805886, 7860950982, 2997165999, 3205026925, 2710295, 9708615928, 6272738969, 4935277819, 2385287535 ####[facility] (DEFAULT)[address] [place] [address] 77765 eGFR Non AA >60 Invalid Interpretation Code [facility] Comment on above: Performed By: #### 1 0993073, 1154762757, 8674337771, 8029466294, 0819882, 8287645543, 8998758708, 4921661869, 2007914296 ####[facility] (DEFAULT)[address] [place] [address] 13120 eGFR AA >60 Invalid Interpretation Code [facility] Comment on above: Performed By: #### 1 3843259, 4077171378, 2890912928, 9160821382, 2250482, 1372171473, 2153431958, 9097434502, 7238134632 ####[facility] (DEFAULT)[address] [place] [address] 39099 Anion gap [Moles/Vol] 21.7 mmol/L High 5.0-19.0 [facility] Comment on above: Performed By: #### 1 7251456, 4103744661, 6381908878, 4036909215, 4792259, 7559480201, 8567149961, 1257926250, 1345500239 ####[facility] (DEFAULT)[address] [place] [address] 36127 Osmolality 286 mOsm/L Invalid Interpretation Code [facility] Comment on above: Performed By: #### 1 4049549, 9211873115, 9251302535, 3106444554, 1014899, 6289672676, 6153667947, 3444170037, 7672523950 ####[facility] (DEFAULT)[address] [place] [address] 95701 Urea nitrogen/Creatinine [Mass ratio] 15.0 mg/mg Normal 4.6-16.2 [facility] Comment on above: Performed By: #### 1 8606561, 6196234614, 7952560222, 7727348648, 6167385, 5529659879, 6236779051, 9333188512, 3564799634 ####[facility] (DEFAULT)[address] [place] [address] 94082 Calcium [Mass/Vol] 8.6 mg/dL Low 8.9-10.3 [facility] Comment on above: Performed By: #### 1 6495523, 8718133250, 2062777659, 2021469335, 3300356, 3749415324, 7433545020, 2404644480, 0005081652 ####[facility] (DEFAULT)[address] [place] [address] Chloride [Moles/Vol] 96 mmol/L Low 101-111 [facility] Comment on above: Performed By: #### 1 8831053, 9496552315, 1870481408, 1776337383, 1751076, 5014881169, 3689626514, 4029065080, 7753328698 ####[facility] (DEFAULT)[address] [place] [address] 34439 CO2 [Moles/Vol] 12 mmol/L Low 21-32 [facility] Comment on above: Performed By: #### 1 3271490, 3784303309, 2042227127, 4795210897, 0746761, 5259228191, 8223881895, 5838924519, 2311829781 ####[facility] (DEFAULT)[address] [place] [address] 00568 Creatinine [Mass/Vol] 0.93 mg/dL Normal 0.60-1.30 [facility] Comment on above: Performed By: #### 1 9937953, 0377665170, 2467708510, 0352131726, 9773730, 4535549716, 8737630754, 2268635577, 5114915997 ####[facility] (DEFAULT)[address] [place] [address] 53512 Glucose [Mass/Vol] 708.0 mg/dL Critically abnormal 74.0-118.0 [facility] Comment on above: Result Comment: Crit ical result GLU 708 mg/dL called to and read back by jony sykes rn at 12-Jun-2023 13:52 by Frank. Performed By: #### 1 0900940, 2505771923, 2416436960, 1340029340, 1860496, 1646148087, 0944396143, 8378759546, 7488400507 ####[facility] (DEFAULT)[address] [place] [address] Potassium [Moles/Vol] 4.7 mmol/L Normal 3.6-5.1 [facility] Comment on above: Performed By: #### 1 [id number], 3208593135, 6011610270, 5901780154, 5869575, 9046645473, 7999080796, 9840376818, 1563994289 ####[facility] (DEFAULT)[address] [place] [address] Sodium [Moles/Vol] 125.0 mmol/L Low 136.0-144.0 [facility] Comment on above: Performed By: #### 1 9142272, 8280552669, 5183506105, 5321855326, 7096449, 3380686038, 4856251738, 8025952819, 0144415037 ####[facility] (DEFAULT)[address] [place] [address] Urea nitrogen [Mass/Vol] 14 mg/dL Normal 8-26 [facility] Comment on above: Performed By: #### 1 7761826, 6460261495, 4292648264, 1429385198, 5993233, 1983452035, 4136393659, 4351678046, 1768939138 ####[facility] (DEFAULT)[address] [place] [address] CBC w/ Auto Diffon 3 Erythrocyte distribution width (RBC) [Ratio] 15.0 % Normal 11.5-15.0 [facility] Comment on above: Performed By: #### 1 0569429, 4036259130, 4140747355, 2624841664, 7314044, 2402111516, 5880139953, 5291077154, 6747796247 ####[facility] (DEFAULT)[address] [place] [address] Hematocrit (Bld) [Volume fraction] 39.0 % Normal 33.7-40.4 [facility] Comment on above: Performed By: #### 1 1842097, 2240574749, 0730909035, 8128753068, 9847476, 4808893428, 2316859359, 5093849059, 5485388194 ####[facility] (DEFAULT)[address] [place] [address] Hemoglobin (Bld) [Mass/Vol] 12.3 g/dL Normal 11.3-15.9 [facility] Comment on above: Performed By: #### 1 7606539, 6310220290, 1091413365, 3361042193, 1784616, 6720308074, 8668786370, 3822021312, 6249853294 ####[facility] (DEFAULT)[address] [place] [address] Man Diff? Auto Invalid Interpretation Code [facility] Comment on above: Performed By: #### 1 5003672, 1598998970, 1074657568, 3773999943, 9623305, 9945175049, 0388169331, 1871673304, 6554983221 ####[facility] (DEFAULT)[address] [place] [address] 99966 MCH (RBC) [Entitic mass] 26 pg Normal 24-34 [facility] Comment on above: Performed By: #### 1 7309702, 8758274885, 4371615122, 2545615609, 3885183, 3112900885, 6017865019, 9161217242, 2920301018 ####[facility] (DEFAULT)[address] [place] [address] 31104 MCHC (RBC) [Mass/Vol] 32 g/dL Normal 26-37 [facility] Comment on above: Performed By: #### 1 5718615, 4432889874, 3693926972, 1194369256, 5910677, 7202713254, 1574258448, 2666081500, 9870494506 ####[facility] (DEFAULT)[address] [place], [place] [address] MCV (RBC) [Entitic vol] 82 fL Normal 81-100 [facility] Comment on above: Performed By: #### 1 5965643, 9186087850, 4937573845, 0164383375, 1188818, 2985983287, 6572650941, 6307743134, 3444066654 ####[facility] (DEFAULT)[address] [place] [address] 49383 Platelet 393 x10 Normal 138-427 [facility] Comment on above: Performed By: #### 1 2510247, 6480328558, 0514861213, 5155034951, 9622878, 9880825820, 9771655639, 3180314027, 4859837186 ####[facility] (DEFAULT)[address] [place] [address] 14125 Platelet mean volume (Bld) [Entitic vol] 7.9 fL Normal 6.3-10.2 [facility] Comment on above: Performed By: #### 1 1102305, 8968436448, 7139508963, 7286018909, 7151558, 1772593940, 7742650678, 1814665441, 0458900824 ####[facility] (DEFAULT)[address] [place] [address] 28181 RBC 4.73 x10 Normal 3.70-5.30 [facility] Comment on above: Performed By: #### 1 8266362, 2249537192, 6741347715, 0864176197, 5966786, 5158056957, 8476683133, 2353366390, 9698059695 ####[facility] (DEFAULT)[address] [place] [address] 10280 WBC 6.9 x10 Normal 3.5-10.5 [facility] Comment on above: Performed By: #### 1 7054149, 1836572398, 2673388718, 8289209654, 7916242, 0352958035, 0008771153, 4755222622, 2504703828 ####[facility] (DEFAULT)[address] [place] [address] 92900 ED Clinical Summaryon 2022 ED Clinical Summary [facility] - Emergency Department [address] [place] [address] 5[address] ED Clinical Summary PERSON INFORMATION Name: DOUGLAS CORDOVA Age: 28 Years Sex: FEMALE : 1995 MRN: Acct#: Visit Reason: Increased blood sugar; Vomiting; DKA Arrival: 06/12/2023 12:23:19 Discharge: LOS: 000 03:18 Check In: 06/12/2023 12:23:19 Checkout:06/12/2023 15:41:26 Address: [address] [address] PCP: ARCADIO IGLESIAS PROVIDER INFORMATION Provider Role [...] iver verbalizes understanding of instructions given Comment: [facility] ED Patient Education Noteon 06-12-2023 ED Patient Education Note Education Materials [facility] ED Patient Summaryon 023 ED Patient Summary [facility] - Emergency Department [address] [place] [address] 72643 PATIENT DISCHARGE INSTRUCTIONS Patient Information Name: DOUGLAS CORDOVA Age: 28 Years Date of : 1995 Reason For Visit: Increased blood sugar; Vomiting; DKA Arrival Time: 06/12/2023 12:23:19 Primary Care Physician: ARCADIO IGLESIAS Attending Physician: Maxi Payne MD Comment: Visit Diagnosis: Diagnoses This Visit Diabetic ketoacidosis (E11.10) Increased blood sugar ([id number]) Vomiting ([id number]) The Pharmacy at [facility] is open Friday through Friday from 9A [...] alcohol and/or drug addiction problems; contact the [facility] 20/01 Crisis Hotline -Text 7XAXQ eq [phone]. If you received any narcotics, sedation, or [...] and treatment you received today in the [facility] Emergency Department were for an urgent problem and are not intended as complete care. It is important for you to follow up with a doctor, nurse practitioner, or physician?s car rental sales assistant for ongoing care. If your symptoms become [...] so we can reach you if necessary. [facility] Emergency Department has provided you with a complete list of medications post discharge. Please inform your primary clinician/provider of your visit and for further instruction [...] a day. Durable Medical Equipment for Prescription ([employer] [place] DASH PODS (GEN 4) 5PK) change q [...] NO Flui (more content not included)... Normal [facility] Extra [facility] 06-12-2023 Tube Collected Yes Invalid Interpretation Code [facility] Comment on above: Performed By: #### 1 7405677, 5041755768, 5193861695, 4591773056, 1183125, 7013473230, 0744847543, 7458441044, 9640292724 ####[facility] (DEFAULT)[address] [place] [address] 56048 Extra [facility] 06-12-2023 Tube Collected Yes Invalid Interpretation Code [facility] Comment on above: Performed By: #### 2 205741, 1813099380, 0401057 #### [facility] (DEFAULT) [address] [place] [address] 26237 Hepatic Function Panel [facility] 06-12-2023 Albumin/Globulin [Mass ratio] 1.2 {ratio} Low 1.4-2.6 [facility] Comment on above: Performed By: #### 1 5658898, 3678467812, 8890740671, 4654279789, 7249923, 0338856463, 7045791050, 8550523711, 6011946726 ####[facility] (DEFAULT)[address] [place] [address] 22582 Bili Indirect 2.1 mg/dL High 0.2-0.8 [facility] Comment on above: Performed By: #### 1 0584479, 8971463918, 5513944644, 0600640859, 1160829, 1826703972, 0695544538, 3175788691, 5906326976 ####[facility] (DEFAULT)[address] [place] [address] 35106 Globulin (S) [Mass/Vol] 3.6 g/dL Normal 1.5-4.3 [facility] Comment on above: Performed By: #### 1 9441544, 6016399656, 2962901125, 0134716535, 8732040, 7915275815, 1489539191, 8849780929, 9476832855 ####[facility] (DEFAULT)[address] [place] [address] 29350 Albumin [Mass/Vol] 4.6 g/dL Normal 3.5-5.0 [facility] Comment on above: Performed By: #### 1 9867217, 6337247135, 7767340585, 9747643361, 1122574, 3213772451, 4000969326, 5220381256, 7823120854 ####[facility] (DEFAULT)[address] [place] [address] Alk Phos 90 IU/L Normal 32-91 [facility] Comment on above: Performed By: #### 1 5295984, 6872376338, 9957447010, 5702621289, 2986532, 0617316410, 9070229055, 7306461178, 3064694418 ####[facility] (DEFAULT)[address] [place] [address] ALT [Catalytic activity/Vol] 27.0 U/L Normal 14.0-54.0 [facility] Comment on above: Performed By: #### 1 4306906, 6163452783, 7467842159, 3404754615, 9910103, 8903635397, 7439890213, 1894079634, 9476700379 ####[facility] (DEFAULT)[address] [place] [address] AST [Catalytic activity/Vol] 17 U/L Normal 15-41 [facility] Comment on above: Performed By: #### 1 4042707, 2642296464, 8360561203, 9847635741, 3965801, 4027778404, 4048364484, 1542535480, 3897177781 ####[facility] (DEFAULT)[address] [place] [address] Bili Direct 0.10 mg/dL Normal 0.10-0.50 [facility] Comment on above: Performed By: #### 1 4002786, 4098946133, 4364006197, 6122788343, 2719066, 5782269221, 1203234462, 2146471124, 4236704304 ####[facility] (DEFAULT)[address] [place] [address] 95400 Bili Total 2.2 mg/dL High 0.3-1.2 [facility] Comment on above: Performed By: #### 1 1811753, 7761206930, 4698052856, 3796896116, 7523964, 0559836155, 6576861072, 5837212778, 3819677898 ####[facility] (DEFAULT)[address] [place] [address] 58820 Protein [Mass/Vol] 8.2 g/dL High 6.5-8.1 [facility] Comment on above: Performed By: #### 1 7557924, 1540300375, 8380132368, 9880233372, 5567736, 2829200019, 8555954177, 6082390996, 1234990609 ####[facility] (DEFAULT)[address] [place] [address] 20289 Ketone Serumon 06-12-2023 Ketone Serum Negative Normal Negative [facility] Comment on above: Performed By: #### 7 745434042, 8414590847 #### [facility] (DEFAULT) [address] [place] [address] 53340 Lactic Acidon 06-12-2023 Lactic Acid 9.7 mg/dL Normal 4.5-19.8 [facility] Comment on above: Performed By: #### 2 790353 ####[facility] (DEFAULT)[address] [place] [address] 25245 Lipid Panel Standard, Non-Fa stingon 06-12-2023 Cholesterol [Mass/Vol] 285.0 mg/dL High 66.0-200.0 [facility] Comment on above: Performed By: #### 1 8946036, 3077482975, 4316075861, 9505011204, 3383074, 4567028886, 0124010098, 1825937759, 2073334239 ####[facility] (DEFAULT)[address] [place] [address] 59985 Cholesterol in HDL [Mass/Vol] 43 mg/dL Normal 40-71 [facility] Comment on above: Performed By: #### 1 5487380, 3605432042, 3606807869, 6795841129, 0485003, 2063589099, 7961793573, 3732616828, 3417450704 ####[facility] (DEFAULT)[address] [place] [address] 19241 Cholesterol.total/Choles terol in HDL [Mass ratio] 6.6 {ratio} High 0.0-4.5 [facility] Comment on above: Performed By: #### 1 2531090, 2677661166, 1146456659, 0764771239, 7759905, 3382004776, 8780822331, 9038288184, 5723343657 ####[facility] (DEFAULT)[address] [place] [address] 04921 LDL See Comment Invalid Interpretation Code 1100 [facility] Comment on above: Performed By: #### 1 9013316, 7610678881, 7137177485, 6455131074, 2060488, 9302564781, 3251158823, 0889908399, 7300270297 ####[facility] (DEFAULT)[address] [place] [address] 94909 Triglyceride [Mass/Vol] 855.0 mg/dL High 0.0-150.0 [facility] Comment on above: Performed By: #### 1 4082752, 4169374595, 0377646406, 3885433360, 1047016, 2073058851, 7037599810, 5081227385, 7672471058 ####[facility] (DEFAULT)[address] [place] [address] 30351 VLDL. See Comment2 Invalid Interpretation Code 540 [facility] Comment on above: Performed By: #### 1 0658584, 8048388211, 0731034183, 2269808497, 9366027, 2279062334, 6625423796, 7814781249, 4413159537 ####[facility] (DEFAULT)[address] [place] [address] 93144 Magnesiumon 06-12-2023 Magnesium [Mass/Vol] 1.91 mg/dL Normal 1.80-2.50 [facility] Comment on above: Order Comment: While on Insulin Drip Performed By: #### 2 405346, 0431246672, 4393515 #### [facility] (DEFAULT) [address] [place] [address] 36060 POCT Glucose Levelon 023 Glucose [Mass/Vol] 216 mg/dL High [address] [place] [address] Comment on above: Performed By: #### 4 [id number] ####[facility] (DEFAULT)[address] [place] [address] 64951 Glucose [Mass/Vol] 250 mg/dL High [address] [place] [address] Comment on above: Performed By: #### 4 [id number] ####[facility] (DEFAULT)[address] [place] [address] 49356 Glucose [Mass/Vol] 309 mg/dL High [address] [place] [address] Comment on above: Performed By: #### 7 [id number], 2929456809 #### [facility] (DEFAULT) [address] [place] [address] 54625 Glucose [Mass/Vol] 349 mg/dL High [address] [place] [address] Comment on above: Performed By: #### 2 825596, 4415993140, 0798530 #### [facility] (DEFAULT) [address] [place] [address] 96905 Glucose [Mass/Vol] 447 mg/dL Critically abnormal [address] [place] [address] Comment on above: Performed By: #### 4 865839984 ####[facility] (DEFAULT)[address] [place] [address] 08494 Glucose [Mass/Vol] 520 mg/dL Critically abnormal [address] [place] [address] Comment on above: Performed By: #### 4 [id number] ####[facility] (DEFAULT)[address] [place] [address] 23997 Pharmacy Noteon 06-12-2023 Pharmacy Note The following medications(s) has been reviewed for renal dose adjustment per P &T protocol based on the patient's current creatinine clearance: Medication: Enoxaparin 40mg subq daily Estimated CrCl: 86.6 ml/min _ Action: No change required Changes Made: [Electronically Signed on: 06/12/2023 15:41 EST] Emmanuel Hendrix [Verified on: 06/12/2023 15:41 EST] Emmanuel Hendrix [facility] 06-12-2023 Phosphate [Mass/Vol] 2.6 mg/dL Normal 2.5-4.6 [facility] Comment on above: Performed By: #### 2 545044, 3508044683, 9112933 #### [facility] (DEFAULT) [address] [place] [address] 93151 Phosphate [Mass/Vol] 4.1 mg/dL Normal 2.5-4.6 [facility] Comment on above: Order Comment: add o n Performed By: #### 2 071603 ####[facility] (DEFAULT)[address] [place] [address] 43302 Test Urine 1on U Preg Negative [facility] Comment on above: Performed By: #### 3 [id number] ####[facility] (DEFAULT)[address] [place] [address] 88759 U Preg Internal Control Pass [facility] Comment on above: Performed By: #### 3 [id number] ####[facility] (DEFAULT)[address] [place] [address] 99748 Progress Note - Nurseon 05-30 Progress Note [...] 06/12/2023 20:04 EST] Michelle Gallegos RN Normal [facility] Rapid HIV.on 06-12-2023 HIV. Negative Normal Negative [facility] Comment on above: Performed By: #### 2 973378, 2977081169, 9124803 #### [facility] (DEFAULT) [address] [place] [address] 94060 Internal Control Pass Normal [facility] Comment on above: Performed By: #### 2 830650, 3847799514, 0617450 #### [facility] (DEFAULT) [address] [place] [address] 52201 TnI HSon 06-12-2023 Troponin I High Sensitivity 87.9 pg/mL Critically abnormal <=15.0 [facility] Comment on above: Result Comment: Crit ical result TNIHS 87.9 pg/mL called to and read back by Elza Gallegos RN at 12-Jun-2023 17:18 by PREET. Performed By: #### 2 677670, 2488880584, 7423683 #### [facility] (DEFAULT) [address] [place] [address] 38618 Troponin I High Sensitivity 109.0 pg/mL Critically abnormal <=15.0 [facility] Comment on above: Result Comment: Crit ical result TNIHS 109.0 pg/mL called to and read back by heath sykes rn at 12-Jun-2023 13:53 by Frank. Performed By: #### 1 4435875, 9459501999, 9281434475, 5535542739, 7669623, 0445550483, 6286320369, 4181122869, 1099401021 ####[facility] (DEFAULT)[address] [place] [address] 35992 Triage Panel 1206-12-2023 Triage Internal Control Pass Normal [facility] Comment on above: Performed By: #### 1 [id number], 9512349472 ####[facility] (DEFAULT)[address] [place] [address] 62445 U Amph Scr Negative [facility] Comment on above: Performed By: #### 1 187342694, 8226708519 ####[facility] (DEFAULT)[address] [place] [address] 32169 U Landy Scr Negative [facility] Comment on above: Performed By: #### 1 [id number], 1830647566 ####[facility] (DEFAULT)[address] [place] [address] 00242 U Benzodia Scr Negative [facility] Comment on above: Performed By: #### 1 946233887, 4384534326 ####[facility] (DEFAULT)[address] [place] [address] 13608 U Cannab Scrn Negative [facility] Comment on above: Performed By: #### 1 539826723, 2446295725 ####[facility] (DEFAULT)[address] [place] [address] 96382 U Cocaine Scr Negative [facility] Comment on above: Performed By: #### 1 358232559, 8922405432 ####[facility] (DEFAULT)[address] [place] [address] 89275 U Methadone Scr Negative [facility] Comment on above: Performed By: #### 1 880322382, 8549591133 ####[facility] (DEFAULT)[address] [place] [address] 15144 U Methamp Scrn Negative [facility] Comment on above: Performed By: #### 1 467592669, [id number] ####[facility] (DEFAULT)[address] [place] [address] 84007 U Opiate Scr Negative [facility] Comment on above: Performed By: #### 1 579702264, 5235416298 ####[facility] (DEFAULT)[address] [place] [address] U Oxycod Scr Negative Normal [facility] Comment on above: Performed By: #### 1 881399269, 9723143518 ####[facility] (DEFAULT)[address] [place] [address] 89373 U Phencyclidine Scr Negative Normal [facility] Comment on above: Performed By: #### 1 191593430, 4484293218 ####[facility] (DEFAULT)[address] [place] [address] 80263 U Tricyclic Antidepress Scr Negative Normal [facility] Comment on above: Result Comment: Resu lts [...] PPX Propoxyphene (Norpropoxyphene): 300 ng/mL THC Cannabinoids (57-obo-8-carboxy- -THC): 50 ng/mL TCA Tricyclic-Antidepressants (Desipramine): 300 ng/mL Performed By: #### 1 [id number], 1558281901 ####[facility] (DEFAULT)[address] [place] [address] 10263 UA Standardon 06-12-2023 Breakpoint UA Normal [facility] Comment on above: Performed By: #### 1 [id number], 6186599249 ####[facility] (DEFAULT)[address] [place] [address] Color (U) Yellow Normal [facility] Comment on above: Performed By: #### 1 556389705, 3177713539 ####[facility] (DEFAULT)[address] [place] [address] Glucose (U) [Mass/Vol] mg/dL Normal [facility] Comment on above: Performed By: #### 1 [id number], 3275369975 ####[facility] (DEFAULT)[address] [place] [address] Ketones Ql (U) >=80 Normal [facility] Comment on above: Performed By: #### 1 658160626, [id number] ####[facility] (DEFAULT)[address] [place] [address] UA Bilirubin Negative Normal [facility] Comment on above: Performed By: #### 1 281014441, 8616400410 ####[facility] (DEFAULT)[address] [place] [address] 74271 UA Blood Negative Normal NEGATIVE [facility] Comment on above: Performed By: #### 1 [id number], [id number] ####[facility] (DEFAULT)[address] [place] [address] UA Clarity CLEAR Normal CLEAR [facility] Comment on above: Performed By: #### 1 541761257, [id number] ####[facility] (DEFAULT)[address] [place] [address] 76100 UA Leuk Est Negative Normal NEGATIVE [facility] Comment on above: Performed By: #### 1 108463864, [id number] ####[facility] (DEFAULT)[address] [place] [address] 58794 UA Nitrite Negative Normal NEGATIVE [facility] Comment on above: Performed By: #### 1 198757680, 5940490174 ####[facility] (DEFAULT)[address] [place] [address] 52629 UA pH 5.5 Normal 5-8 [facility] Comment on above: Performed By: #### 1 [id number], 2747448581 ####[facility] (DEFAULT)[address] [place] [address] 53798 UA Protein Negative Normal NEGATIVE [facility] Comment on above: Performed By: #### 1 385040157, [id number] ####[facility] (DEFAULT)[address] [place] [address] 99213 UA Spec Grav 1.020 Normal 1.001-1.035 [facility] Comment on above: Performed By: #### 1 [id number], [id number] ####[facility] (DEFAULT)[address] [place] [address] 84336 UA Urobilinogen 0.2 mg/dL Normal 0.2-1.0 [facility] Comment on above: Performed By: #### 1 [id number], [id number] ####[facility] (DEFAULT)[address] [place] [address] 96474 Urine Source Clean Catch Normal [facility] Comment on above: Performed By: #### 1 [id number], [id number] ####[facility] (DEFAULT)[address] [place] [address] 54641 Venous pHon 06-12-2023 pH Denis 7.37 Normal 7.37-7.44 [facility] Comment on above: Performed By: #### 1 [id number] ####[facility] (DEFAULT)[address] [place] [address] 16004 XR Chest 1 View Frontalon XR Chest 1 View Frontal CLINICAL HISTORY : Chest pain. TECHNIQUE: One view of the chest COMPARISON: 03/17/2023. RESULT: No focal consolidation. No pleural effusion. No pneumothorax. Normal cardiomediastinal silhouette. No acute osseous findings. IMPRESSION: No acute radiographic abnormality. Final Signed (Electronic Signature): Benton Minor MD 06/12/23 1:52 pm Technologist: [facility]ena [facility] Coding Summaryon 06-09-2023 Coding Summary HTMLBase 64 HemnjqzvWNt9lRc+PGhl YWQ+XE9MWCLiC38yxUPr xC1eP9TWLPnMWmasEFBM KGxMLaHglkRpTE8vvVBp ZXJu IC8+SB7xELQsDlhktKFh u1G6pEN3J34xiz3eKEzo nEX8GAIxKyPjayhky4zb sCv6MZjkThnqZgYz BCSnaH14NDH3dK62Od66 pFVwbXVih0wvtJa4WfPg UEDcSRF1oOiyWTpvp1Hn CBEsX05duHVzz6C7 IGNvbGxhcHNlOyBlbXB0 eX4yKUmpzfszt6gkgjng Umk0vn59qWFam7O4nEU6 N9KhvgO1XUGrbXNl UsxxrEEHfQ4wwxkvf8ve osgwKuHjJOWtVWl0TVl6 ARPsdWlgCgHdIB07CYO6 ZVJanvIbC7KwCQIo hWieNiD4b7W6Bh2UR2VP TtpwH4JIKBHGJNzwzNO+ CO11vk65W0XoFxtoKam6 CXEvTKX5yBM3jR9r FPCkWYmfl1R8rYX5N1Oe qjBlfe8ac7dsPHRfSDgs K78fhAVod1U4LYXicFN7 YMNztIytDbBtuH28 Oyc+MOGxcVrnr5BaXilx q1cdy0nceHc6YapdKAOd saBvkSvzUJK7h1HgEa4l OFWshJW7rTO4kA4z PgVbUwO2QRcpP803GuNy lOWlBxrmN53mE2AnkHD+ PQHwVpx3OAWufQrxEB3t L4ZhSTCuucfppPYm zGoaNO2uMQXgifmnPIPe jY3kDWBsE2h0XmGhSbX1 DFkiG9DzBULrtealNk38 bG9zYgLyNpR2LJoz W8VwjiO1JQYgqOVzLHyv HDA2D10pi5D5SARrEMEm FXT4wEA6dF0fmNwnezhc bGVmdDsgdmVydGlj MNfqXBduZ657ZTBjwMif PkNvZGluZyBEYXRlOiAg MTIvMTEvMjAyMzwvdGQ+ BNObBVL5fXuoPEBe dJKeLAsmMf2btNngrXvd CY5vHTDaifcrHHXomY7j JMWbbJAuxVojEW8gRDIj awapn518EjHxSVH8 MZYrbGTiS5AdkV9zOmTb KNHsEUBlS2CvmMYdFOzh S420DMboUuP4JUTugxKm D9LkPMHxcTyhHrH5 u5R0Sf9Yu4YipgalW8Ri lEBvMtLdXvmsGZo0D1Kl PjwvdHI+OL03BWVgPX56 VGv6BDE6jNxkLTdg QMFrC5AoaK5oKsFgSTVr ZGRkOyc+PHRhYmxlIHdp ZHRoPScxMDAlJyBzdHls NR0xSa5iYXKkXTCa wBkkeTAqIeGfw5yaSATp HReoTJ7csIulO4DfwVP9 KEDke0n8Jz89Z60wP2Ih dXA+YVHpoDE4xZA6 bO2hHzOhAuG5GJjnM206 KpFwzSAkZofsz1pyg5ig cJt1FcJ1GJKkylYppEck UAU5x8LoBf34C35g IHdpZHRoPSIxNSUiIHZh mRnxyp0gcY5xAo5+PGNv jZC8jZQ4sD6rApZrGdR9 JBeqI602GvIioLHk Bnjwb6rtl3xteLa1JfDf UIRundJbqUxpFVG6h4Uj Cz80R2CytWuzi2PwJdz1 ry65bRTot7V0oXQ7 Q1FjETBjbjasuCVjmLvb FG7yPCPqygwxFAKfwU8p EYBmU2q2BmOmXiZ0EIrz L1VhqfE2BHAmfFVq XVNzwPYAzL9mxpntv7nx xjmdFnBaHTUxDYs0CRh2 MQEmxZgfWmWgRBM1DnK3 CBQ7tTWlcM1fbTmw hxtxmB3qUmj+SOK4oBHc oRTIFI0kWbnybPI+PHRk JWN9rJgdSUmdIEAkeN0a VLHnP7x1AeBiMlQ7 LDxxH2UyzfE0JXOkfDYi SPZdqMRLbH3vvwifl2by mbfrKjNpNMGjVQn7UUm5 LWFsaWduOiBsZWZ0 XzP8UEI7uDLhwT9fjSvj fvlduQ8dTuz+QmlydGgg GOG5POz1O9SwBsq3XHUy cUbiHL7bjHLsGZsf Xv1rpJkiaWcfPZ1lZYFu kpqcp392CjMtk7ylLGDl eSKgJMyySLK0C10su9S0 BCDgSOZuZSD4uEB5 sA5nbZynkzrdsTBviThz hrAovXncNJwoNGuwU123 KMBknMqqLmWzYZk1J3Py Xlf0ZVUuaRofDU5h tOHeLYtaQh5cwZsvrEnk PU5aAZDkrzwnm150DmTh t0grGNErnLJsFUyhWLS7 Z86hs6J3MKGbEJOu RIU3tSV4sB1yxEohrztm bGVmdDsgdmVydGljYWwt RPzeB908SBLafYhbLrFh gCr5C5ShXqs3LLSw iEkqMJ9ugCIrHNpaEs1q oCdfoOakKG8wLIItelpf c454JcJca5qpEKFeyUHc FKmmUQN3Y13ca2Q8 WTEzXNIjLKV9bHE1xX2a bGlnbjogbGVmdDsgdmVy sIocOKleUZdtH509VMIn cDsnPlBhdGllbnQg OSrwMZp3W5GpJwghjIR+ AC50YFKhRU34kVRqiQCp p6mebNz3SpKyTUEkHOO6 rCkuPIghl0JoHLGh D72koFNcx4V2RBLdyKcr mRBaChOzwHX9pO5tZPwe aqrtw1kixasbWlmwf1kl ab40qG39J98nRFbv ZHRoPSIzMCUiIHZhbGln nw4tgH5rYv7+PGNvbCB3 pBL9pZ6lDHZkBwR9EVkn W130MeXisBHcZvlc c6ybh3xlgXi3IjE6SBDi ffGldCdvFVV5j8EpYm93 I27eGAakWSGtVSBmENQe NZTmdKixje1giH9u Ii8+THQcpOP6lMU3uI8t KvKdJpU2ZTquD040SbNg aZDjZwbtH84iV8ZklQP+ UWTtDaa5LXPduTqi NB7wnKHaTMgpHb5xPMC4 JiHwMeEcPJemU2OyRAKx hvxklzxpeCG9AQEoJAWp gZ44Qy7esNdxXBXq dIHXsI2qreuxz0wbdkgr GeKkXZZnSHp2ZPd8XHEc mIypOrNaBLY9PfP1XXW3 aYDutB0cmUnsftzo dZ0nM7PuJQUsvhuuBs28 nG0pPfEcVhS0CTebQtn+ NY1KHHFXVOKUPUzQVICV FCGOIPD5Z7SoLth4 EMZbcXkiRT9qfXRwDVuv Pr6llMylbHtrTF9aPIJj povoTWXpkS7jPFMoqVBy kElpCX6bTUEpxlbk v020RnMnGHU9RLJnyDDv P1QygC6mThQbYPKyBYTu R0MwwLWeVUivT788TGjt OfK9IDNsqiZvG0Nq KKJajEqiOzU5t5M2Fl1t Xz3hFT8uUTdyNQ94ET92 lSReq3K0pQP8R6OpEJQc exxkjvfmvII2UBIo KTQndC41dGOpHBdqAs5p s6W9w030PGDgDGHbxI48 Lq8cbAplNCGidAMWtZ1a hofwk1zwhmfaAoAm ZDQlNHs8DVo9GRVpuAzr QcYnESI2FmX1CND5sTTq aV3ubCddwrhghI7lBxq+ GnBgSJFkwxJ0L9Ed Vjp6PERkeLlqUA2wcJVt NEssLu4brOtjuOpgKI3c DYWshuwmKNWnjK5aHTJe mFEoyEysXC9hQBDm ceawn205GwYhSTT0CNVu fNEpM7NixX5pTaXqCSCu HDTvA6NgpHVcAQhhF235 DSnlSaO1NDXxghEo U8LwICHjlMspUqS7j5S8 Ut9UVL8WYDL7Z3ZoXnj6 GVWxiIxrRW6ybVHpICuh Hj4oxGixaLsyBZ4i VUFszmlbKHBnqT5gZPKh sTNqtMxwWQ6cLFVcudit k752FjDyBZR1FFDdgVUb T5KplS0tNsGbTGKr WKRbO6NujPGzMTxmK465 SBzeJnH2OWZdudKuU0Ei UUOrjZhpRkU4j9C8Sy7S cZFdB7BpR2w7V5La PjwvdHI+IV18JOQwYT84 aXPreTTxl5nrhYe2DtNs XGVeBEW6oEupTWpln7Zi AKIwR68ttPQap3D3 IGNvbGxhcHNlOyBlbXB0 zN2eHYtfnskln5toirfw Desgu0ngrv62fZ75N38x IHdpZHRoPSIzMCUi TIGjwOisxl1baK6hFw7+ YCUiiYQ5cYP1jB2tHmKf DoO1NWknI488MkFlkORe Pispi0pdy9fklTp6 IjIwJSIgdmFsaWduPSJ0 b8NaHz34C94mETbiTLKt EEFjIZEdZIZevCfirt5k cC4eKw1+UY9bj6wy eu45fN08eKG+PHRkIHN0 iJlaUBigXFBttA7bXJbd OcK6SGUxAmVjuM10vNHu BHyfDs0luXflpJrg FC4kFPWngdbzf375DsVv v3fdHTGlpMFtVYuqFUN9 Y77zd5J7XEMuLDOxMNZ1 kPN6gC9azFykjfqj bGVmdDsgdmVydGljYWwt RCqbN286ZXPsvTooDpWd nVSmG3oxobTWMH9uZwoe dGQ+BVXqMBA9hUkn OBvbWSRktY8cVJRbR3o4 YzVhTpW5VSafM8XmycH6 ZSGkzBOvMTRpeZQUzF2y bfoop6klqnxpCeWy JOTiARz4HOz1JANyuKns LsGpOVF3YtX6SSA4rODh cI4bqTcyiobxeI6nHck+ RklOOjwvdGQ+PHRk QNM0tKeyJNetVEKngT2d GVYqN4m6ZxRfYyA8IYcb R7RpxrL0ESUdvGIbIZZs sLBTyR3lgukxv9cv fqspQoOyWWCrBYq2IMi0 TUOoiRvxYbNqSGM1UzT4 HHM5qGCnrT7ppLtxnxmt aT2mBvq+TVJOOjwv dGQ+NCIkZLK7lVinEBiw VISvkU8gDDEgE7t1YbVg MqA5NAgmT9QbvaU6DGNu zFJfNSKxqXHHzH5m cygfo3mplvvfHlXxKXQz MCl6GGi4DLJxtFauLsMd PCR2UnZ2WUN6cOVxlX4l qHzyvmsbpS9aObl+ UPP8FWW4LL31VS20F8Ys PjwvdGFibGU+PHRhYmxl IHdpZHRoPScxMDAlJyBz lCggBF0fJz5aZARe LWN (more content not included)... [facility] Coding Summary HTMLBase 64 VymmxiqeTUa4hFr+PGhl YWQ+KK2OYXBaW10pzGAw dX0iR1BAYMqNXqgsIAAQ CMkVXxSqsaAgQK1tkESb ZXJu IC8+YB7pOBXzIjzdhZOz d2Q9aYK8H23ogc6uVOim xHU8AVHlAtQrhllzn0sn iJf4JKokSiumItYf STBjsG89ZZF2lW39Uq58 cDCjxYQhd1hhpKs8VoUq XLFnVCM7dNffSEzxf1Gq RDZqU56fiKGep3V7 IGNvbGxhcHNlOyBlbXB0 eB3jWDyidqnam2guyuqk Bvi3zl91aCEic3N3sSB4 S1TbdzT7AELzsTAv NlevzMRGlM0btpijy2gg mkzrBkOsSRAoWEk0JUh6 WJTvvWcnWhNnOR72VYH7 XOOtnzXcX5IfNRZu bGpmDyR0z1E7Ru6EJ1KE ZsoxC3PKEKOZODekoTY+ QM60og38X5SxFlzlTzi3 HDVfSHJ4yEK1vX5r FNCxHUswv3S0kTL0F0Qm hmLwxc2iz1ofYFBbQXwt E71wcYSqc7U8KZUorZB9 GQIuqRuxOePfeQ98 Oyc+XJJuwYsca4IeBcyk l8njx8aifYg6AdojPFPm ufJkxIaxBFY0c6QkMi0m YYDgzQV1oCQ2pU2c ZwPgQuE0BZwnA527XtXf mCZhOfxaR11pX8XpoPA+ WFUmMqe4DNRfiXmsKM7w O5HcZTHptpzqwAFq zLjzIG1pSCKrlqejHREn fN0vYIRuE4u9GeDtBeU6 ZKtnD2GtKUQxirqwPx33 bY8eOjRkDdU7CDov P3XxeiV5ACQytQRiNQlb PJK2S98ie7T6VQZdHSEm OJZ8yCF2rP2puMpctqja bGVmdDsgdmVydGlj FKzxOQspK484DIKlqJvs PkNvZGluZyBEYXRlOiAg MTIvMTEvMjAyMzwvdGQ+ BCSaGRV9qGxyTNCu tKBhJXiyNj3hpPsiyTkl UB4yVIDlviziLYZhqF0s PCDwgJEjyUhtPX2pCXLh xixyc469ZwXgAJV4 ZUGfpNPoR6VzdV7zQfAd ZCUvNAIgH9MziUDtYTgi C316ERxxKtK0TLWetpQa P6OgXQEtvWpvEyP9 i0G0Dz3Wf1UowkzaT8Zw hFNdEeObUhqoJTk9L9Ez PjwvdHI+YI02TZOcHD60 TOe5EQI3bVnaYWru OWOrH8BiuH2bArGeSWAx ZGRkOyc+PHRhYmxlIHdp ZHRoPScxMDAlJyBzdHls FY9rRz3gCJLvWPBs dMvvpJJqOdJgi6fkPRZc YTlrJX6lcNjdX6RdhNI3 MQVgt7u3Ha09N92hF7Ih dXA+CQRewBO2zTP0 gW5aWlDsWlA6CVbcK552 UpNboRXfUxncj9uan4er fSv4RlC0WBXganPqcPsp HEK5h9MrEo13V24e IHdpZHRoPSIxNSUiIHZh hCkzuf4orU5uDn2+PGNv nLW5aIY1bZ5xTcDuIbN2 OLeeL510RfUtvCJw Ltvas5xju3frjVs1WbYs KBEojdIevMhbDSN2d8Ae Ja14K8YelMzjx6FpPzo6 ae03uFLal5W0mNA3 N2AgYOFswvsemUVrbAgs IM5hQLPmlzmjVQGoiT8s HVJzM7z4KzOzDwN2XZuk W1JdreZ8LLZwoTIu ZHXxsKDYuR5khiffw8ad ftnpDbMbDKAnQZl7OPg8 JVBsvZztEsXnQDJ7VsU1 RMN2gEBwaV3egIpd xotezC9sXma+QBO9eODh sYZCJO6gDuhskOT+PHRk WMG1lLpfTAbkYGMqwE1g KYPaT6a3UoNjObY0 ZVcoN8GboaM9SETcbMCg JJMioXFSbN5brsxox0on alfoVfExCHNrDJc6GKc0 LWFsaWduOiBsZWZ0 UpL9ELP0qFSoaN9tpWwv fdulaH1xVos+QmlydGgg BGS9NPu2Y1UvNko6FBDp tHkfHJ7oaLZeTMwn Uj8iuPjpwGlcAA9qAXFm ttiki005NdVql6xrTJHi wDOjOHoiZPW1S26uy8I8 VJXxZTSaZTV0zME2 hO0lcYmpmafjoJYxmKkz wuGefZxcPQzqIGvvE129 YPSomYoqVaCiAKe0E9Gg Hat1JYRceJzwSZ1o jSBnSDcrOq5wgUbqpRet HO3kINAlmqiwn075PtFl s1htAXYegFVrYWiwBUI9 C17hd5V3KGFhQIKy ZWV7cCM1qV7erKjnhwbo bGVmdDsgdmVydGljYWwt ORxsL586GASbnDdrQyCx dFu8U2SkGyf2IYKz qOraWG7guGWnYUzyLf8d bQwqqFqxNX8vKCJcebcw u514LqDui2crKXEgmOFg XWjzJLK9D59gj2L5 XCNzHJKzYXO4jAV4wF3b bGlnbjogbGVmdDsgdmVy kJldPIrbUSoyX620HRNp cDsnPlBhdGllbnQg CWzfRGi5T8AoQoslePW+ ZE31AFRcBD01pWGigBYu n9kjmEt4OpCqVYFfQHD3 mPlaQDbjs0BeBUXv O18wuMWos9D8QTOepBau qWYwMfZzrGW9oA2oCXbb tminn8zycibrShouf3vn ow89fL85H52fLKbb ZHRoPSIzMCUiIHZhbGln id6clX4qVl8+PGNvbCB3 iUN9mC4wZXIeZgQ2YHfz I916KoMiuQGcAapb z5dne4tjoHu5SnF9UDZo qlYdgOaiGKY2y0CqGn18 C01sZFibOKVxYIKlBZLv ULVilQmzix2qdF3a Ii8+LCQcpKI1yMA1dN1l AjJkGaT1KJsrA910LvAx gRGvMswmX35hL2YncSH+ PEJfQxd6IXNkwTpr EE1yoFHsBIflEt9uOBK7 FeHhKmGwQTmwG7VoKYKf cchxohgeeMO7YKFgZWWa sZ52Ro1foTfjWFKl dHBVfQ9jcghwi5wtbcnj CjZkOKYeHXw9JHe4IOMl nFplRvXpQEK8PwK1REA2 nQPgqJ3iaVffajfo rY5zR8AtVSKhmbryCb98 xF8aXeQpIlH6IIjtWps+ QA8YLQMKYLTRJGbFTCNW LZCYRPX3B4CoTgz1 YYAgoSudJZ9vvBDvGNcf Mr2dkBxekJdgRR1sVURj kmctHGAutQ0aTZDbgRFc yBecKA7hSCOwjxup o982BaEeACX1QCFszZAd T1YdmF2rDgAsWJEjIVAl T4RrcBBdKBxoA216ODmx QdB5UQPnjnMuE9Dv UVOcsXbpZnR0h7R6Qs2l Sv8jXT0aHEaaKA45IG40 hLBmc9U3dPV6G9YcSTUu sfoisowwhWJ0ZLFh VSQceC29qYJrHSpiIk7h z1D3v262PLGiKMMomO53 Bz8jyZbjUAYulUAFhR5i kyhqh0wvqrrsAcZd YKXyOPp6DJw7KQBevXsk VpHdCDG1AxD6BYJ3yANa oB0apJurzbkbaD9mImc+ CxCjDKXkqcU6G7Qn Bpr8FNKyuSldQH5ulKPo URmnXj4qqVznfGstFN8y WILnvzscOSMzbF6tKMMp lXHoqIrqWX4uLTGy zubrv624XvLqPST7TLYz dDPwZ5QcaA9oPvOiQCWm UMLqC5OicCIeAYlbD125 NEfyXuM5QOSrfcHx K6CuEKCpeUwiRyA1b6Z2 Hb0FSO3SCVE2C5PmWhg1 IMDxxRqmVD6guFZzQXwj Dv8toBbwtRtpKK0y IPIwrmcvFGKcoJ3cULWz yASglApwPS9eFSTlcwzz u499JwPdWCQ3ANVrvYMe R9DulK0yZrLtFNQc HTChJ1XhtBBgCEzcH994 CLxzMuF5HVCdgpZiO6Ez RKHmaOasYwL2a4U7Kf7Q kKLuR5KfJ0t3Z3Xu PjwvdHI+TG49RLRuMB51 oSJdcCPrn0jhpHy2RuOe KTZuBZT3tCkkWGrts7Ap JVByH87thQGcj9C4 IGNvbGxhcHNlOyBlbXB0 jH4gFTaiffblw8dwgxke Okanu5srxi37eM66U74n IHdpZHRoPSIzMCUi ZRQkeLivkv6kqM2sNi2+ QMDmwXB4bRY2eQ8vFkCi QiG0ZLndQ840XnFxxQHe Wejjr3hmc9zrwXj8 IjIwJSIgdmFsaWduPSJ0 p7FnIx56G86jBFgrFXEj TNGoJYHvHXWfgSzfao2r jQ6zUc8+RC1po1fm jw70xH02zBM+PHRkIHN0 eQyqTXgvSGOtvO0cYOdj UpA7JGLpCuDstB86aLHq GSytYe2dtCdnaFze UV3sDFTfsczws974ExTy q1kwENCijASnNKxuEQB3 J32bl9U3VDAsMLMhJZR5 wWP9zJ3zuFdkuyrz bGVmdDsgdmVydGljYWwt RCopX423UROseWztQkIb nFXsH4ufzjVDXK8eYpyl dGQ+SWGuFJE9sAnv EBupDCYgdP6fJBVgU1l2 NxUnVwO8UXixT4OeyzF3 ZQGbtZBdMEOxlNCPwH5w eyebf5oldqxmYcVq ENWdOZf4WPg3COPkiZgj VhGxZQA8VjR1XSM3uLSf hN8htEutlvromB5dClv+ RklOOjwvdGQ+PHRk XLD1eNpyCQvrSYUzqQ0h OUWpA2n1OyOeWwY0VUpb Z3GprvI8OXSjuPQdZNHt uKRXyD4szjtrz1ku ojrlGvRsLUWbKXl1YCs3 TSMcyAgtPlBwPHP0WyA0 SFI2qBOrcP4ueImlpsei uH2eGiv+TVJOOjwv dGQ+XTYmUNH2wYcjOBto OCPglT9fFODzE8e8IwMu UyQ4XJrkP6ZmczX4UKXv vWLvRASkhRTCfY3w peotb1zdoelhApDlZGAe JOk7MMn7ULHitKxuHdFg TQF8WqJ8ZPV3fDKuoD3c yWnpvjxnkA2iQfq+ KAX0QWX6ON47MV89F5Hi PjwvdGFibGU+PHRhYmxl IHdpZHRoPScxMDAlJyBz qDesKW5jQl6fSUDr LWN (more content not included)... [facility] Coding Queryon 06-05-2023 Coding Query Should this [...] DO [Transcribed on: 06/05/2023 16:33 EST] RR [facility] .Auto Diff 105-30-2023 Auto Nolan % 6 % Normal 07-11 [facility] Comment on above: Performed By: #### 1 [id number], [id number], [id number] ####[facility] (DEFAULT)[address] [place] [address] Baso Abs# 0.1 x10 Normal 0.0-0.2 [facility] Comment on above: Performed By: #### 1 [id number], [id number] ####[facility] (DEFAULT)[address] [place], [place] [address] Basophils/100 WBC (Bld) 1.3 % Normal 0.2-2.0 [facility] Comment on above: Performed By: #### 1 [id number], [id number] ####[facility] (DEFAULT)[address] [place] [address] Eos Abs# 0.0 x10 Normal 0.0-0.4 [facility] Comment on above: Performed By: #### 1 [id number], [id number], [id number], [id number] ####[facility] (DEFAULT)[address] [place] [address] Eosinophils/100 WBC (Bld) 0.4 % Low 0.9-4.0 [facility] Comment on above: Performed By: #### 1 [id number], [id number], [id number], [id number] ####[facility] (DEFAULT)[address] [place] [address] Lymph Abs# 1.4 x10 Normal 1.3-2.9 [facility] Comment on above: Performed By: #### 1 [id number], [id number], [id number], [id number] ####[facility] (DEFAULT)[address] [place] [address] Lymphocytes/100 WBC (Bld) 25 % Normal 14-48 [facility] Comment on above: Performed By: #### 1 [id number], [id number], [id number], [id number] ####[facility] (DEFAULT)[address] [place] [address] Nolan Abs# 0.4 x10 Normal 0.0-0.8 [facility] Comment on above: Performed By: #### 1 [id number], [id number], [id number], [id number] ####[facility] (DEFAULT)[address] [place] [address] Neut Abs# 3.9 x10 Normal 1.5-9.2 [facility] Comment on above: Performed By: #### 1 [id number], [id number], [id number], [id number] ####[facility] (DEFAULT)[address] [place] [address] Neutrophils/100 WBC (Bld) 68 % Normal 44-88 [facility] Comment on above: Performed By: #### 1 [id number], [id number], [id number], [id number] ####[facility] (DEFAULT)[address] [place] [address]66 [facility] Standardon 05-30-2023 eGFR Non AA >60 Invalid Interpretation Code [facility] Comment on above: Performed By: #### 2 [id number], [id number], [id number] #### [facility] (DEFAULT) [address] [place] [address] 27775 eGFR AA >60 Invalid Interpretation Code [facility] Comment on above: Performed By: #### 2 [id number], [id number], [id number] #### [facility] (DEFAULT) [address] [place] [address] 24545 Anion gap [Moles/Vol] 13.3 mmol/L Normal 5.0-19.0 [facility] Comment on above: Performed By: #### 2 828674, [id number], [id number] #### [facility] (DEFAULT) [address] [place] [address] 79918 Calcium [Mass/Vol] 9.1 mg/dL Normal 8.9-10.3 [facility] Comment on above: Performed By: #### 2 644183, [id number], [id number] #### [facility] (DEFAULT) [address] [place] [address] 34286 Chloride [Moles/Vol] 102 mmol/L Normal 101-111 [facility] Comment on above: Performed By: #### 2 095011, [id number], 5914134 #### [facility] (DEFAULT) [address] [place] [address] 86239 CO2 [Moles/Vol] 25 mmol/L Normal 21-32 [facility] Comment on above: Performed By: #### 2 091247, [id number], 1743545 #### [facility] (DEFAULT) [address] [place] [address] 09951 Creatinine [Mass/Vol] 0.55 mg/dL Low 0.60-1.30 [facility] Comment on above: Performed By: #### 2 654351, [id number], 6006953 #### [facility] (DEFAULT) [address] [place] [address] 75346 Glucose [Mass/Vol] 293.0 mg/dL High 74.0-118.0 [facility] Comment on above: Performed By: #### 2 313569, [id number], 5028378 #### [facility] (DEFAULT) [address] [place] [address] 49876 Osmolality 283 mOsm/L Invalid Interpretation Code [facility] Comment on above: Performed By: #### 2 610216, [id number], 9930852 #### [facility] (DEFAULT) [address] [place] [address] 90861 Potassium [Moles/Vol] 3.3 mmol/L Low 3.6-5.1 [facility] Comment on above: Result Comment: IV T herapy Performed By: #### 2 086539, [id number], 3441666 #### [facility] (DEFAULT) [address] [place] [address] 06145 Sodium [Moles/Vol] 137.0 mmol/L Normal 136.0-144.0 [facility] Comment on above: Performed By: #### 2 213792, [id number], [id number] #### [facility] (DEFAULT) [address] [place] [address] 01848 Urea nitrogen [Mass/Vol] 8 mg/dL Normal 8-26 [facility] Comment on above: Performed By: #### 2 883441, [id number], 0819044 #### [facility] (DEFAULT) [address] [place] [address] 37191 Urea nitrogen/Creatinine [Mass ratio] 14.5 mg/mg Normal 4.6-16.2 [facility] Comment on above: Performed By: #### 2 070541, [id number], 8211381 #### [facility] (DEFAULT) [address] [place] [address] 71077 CBC w/ Auto Diffon 3 Erythrocyte distribution width (RBC) [Ratio] 15.1 % High 11.5-15.0 [facility] Comment on above: Performed By: #### 1 8920547, 1303227, 1270000, [id number] ####[facility] (DEFAULT)[address] [place] [address] Hematocrit (Bld) [Volume fraction] 38.8 % Normal 33.7-40.4 [facility] Comment on above: Performed By: #### 1 3823606, 3198058, 3201199, [id number] ####[facility] (DEFAULT)[address] [place] [address] Hemoglobin (Bld) [Mass/Vol] 12.5 g/dL Normal 11.3-15.9 [facility] Comment on above: Performed By: #### 1 8026861, 0629548, 9717662, [id number] ####[facility] (DEFAULT)[address] [place] [address] Man Diff? Auto Invalid Interpretation Code [facility] Comment on above: Performed By: #### 1 8790262, 7597392, 7802763, [id number] ####[facility] (DEFAULT)[address] [place] [address] MCH (RBC) [Entitic mass] 26 pg Normal 24-34 [facility] Comment on above: Performed By: #### 1 5413809, 8473646, 8177338, [id number] ####[facility] (DEFAULT)[address] [place] [address] MCHC (RBC) [Mass/Vol] 32 g/dL Normal 26-37 [facility] Comment on above: Performed By: #### 1 7608918, 3332520, 8359828, [id number] ####[facility] (DEFAULT)[address] [place] [address] MCV (RBC) [Entitic vol] 80 fL Low 81-100 [facility] Comment on above: Performed By: #### 1 0404893, 2520576, 3340033, [id number] ####[facility] (DEFAULT)[address] [place] [address] Platelet 255 x10 Normal 138-427 [facility] Comment on above: Performed By: #### 1 4651586, 6711334, 0608520, [id number] ####[facility] (DEFAULT)[address] [place] [address] Platelet mean volume (Bld) [Entitic vol] 7.9 fL Normal 6.3-10.2 [facility] Comment on above: Performed By: #### 1 8397385, 8211361, 7430062, [id number] ####[facility] (DEFAULT)[address] [place] [address] RBC 4.84 x10 Normal 3.70-5.30 [facility] Comment on above: Performed By: #### 1 9681942, 4766065, 3206880, [id number] ####[facility] (DEFAULT)[address] [place] [address] WBC 5.8 x10 Normal 3.5-10.5 [facility] Comment on above: Performed By: #### 1 0034826, 7900318, 6181154, [id number] ####[facility] (DEFAULT)[address] [place] [address] CMP Standardon 05-30-2023 Breakpoint Chem Normal [facility] Comment on above: Performed By: #### 1 5464719, 7263769, 0243229, [id number] ####[facility] (DEFAULT)[address] [place] [address] eGFR Non AA >60 Invalid Interpretation Code [facility] Comment on above: Performed By: #### 1 9213151, 5793307, 5519434, [id number] ####[facility] (DEFAULT)[address] [place] [address] 17520 eGFR AA >60 Invalid Interpretation Code [facility] Comment on above: Performed By: #### 1 3127963, 5169262, 2613684, [id number] ####[facility] (DEFAULT)[address] [place] [address] Albumin [Mass/Vol] 4.3 g/dL Normal 3.5-5.0 [facility] Comment on above: Performed By: #### 1 8525478, 8169130, 7684370, [id number] ####[facility] (DEFAULT)[address] [place] [address] Albumin/Globulin [Mass ratio] 1.2 {ratio} Low 1.4-2.6 [facility] Comment on above: Performed By: #### 1 9643020, 0406823, 4050264, [id number] ####[facility] (DEFAULT)[address] [place] [address] Alk Phos 80 IU/L Normal 32-91 [facility] Comment on above: Performed By: #### 1 9915920, 2871577, 4617453, [id number] ####[facility] (DEFAULT)[address] [place] [address] ALT [Catalytic activity/Vol] 23.0 U/L Normal 14.0-54.0 [facility] Comment on above: Performed By: #### 1 8786313, 2490833, 9179093, [id number] ####[facility] (DEFAULT)[address] [place] [address] Anion gap [Moles/Vol] 14.3 mmol/L Normal 5.0-19.0 [facility] Comment on above: Performed By: #### 1 1515425, 9458082, 1038533, [id number] ####[facility] (DEFAULT)[address] [place] [address] AST [Catalytic activity/Vol] 17 U/L Normal 15-41 [facility] Comment on above: Performed By: #### 1 2291861, 6305683, 4330854, [id number] ####[facility] (DEFAULT)[address] [place] [address] Bili Total 1.1 mg/dL Normal 0.3-1.2 [facility] Comment on above: Performed By: #### 1 2514745, 6747647, 6399560, [id number] ####[facility] (DEFAULT)[address] [place] [address] 26982 Calcium [Mass/Vol] 9.0 mg/dL Normal 8.9-10.3 [facility] Comment on above: Performed By: #### 1 3084400, 5712210, 8331195, [id number] ####[facility] (DEFAULT)[address] [place] [address] 88638 Chloride [Moles/Vol] 94 mmol/L Low 101-111 [facility] Comment on above: Performed By: #### 1 5552760, 3923395, 7945282, [id number] ####[facility] (DEFAULT)[address] [place] [address] 08676 CO2 [Moles/Vol] 25 mmol/L Normal 21-32 [facility] Comment on above: Performed By: #### 1 8789811, 0101506, 3638647, [id number] ####[facility] (DEFAULT)[address] [place] [address] 93253 Creatinine [Mass/Vol] 0.73 mg/dL Normal 0.60-1.30 [facility] Comment on above: Performed By: #### 1 0284555, 0682315, 5822114, [id number] ####[facility] (DEFAULT)[address] [place] [address] 83333 Globulin (S) [Mass/Vol] 3.5 g/dL Normal 1.5-4.3 [facility] Comment on above: Performed By: #### 1 6305908, 0770405, 3238060, [id number] ####[facility] (DEFAULT)[address] [place] [address] 07287 Glucose [Mass/Vol] 784.0 mg/dL Critically abnormal 74.0-118.0 [facility] Comment on above: Result Comment: Crit ical result GLU 784 mg/dL called to and read back by rotary drill operatornew hollingsworth at 29-May-2023 23:28 by erica. Performed By: #### 1 0251037, 5399316, 5185838, [id number] ####[facility] (DEFAULT)[address] [place] [address] 76972 Osmolality 295 mOsm/L Invalid Interpretation Code [facility] Comment on above: Performed By: #### 1 8679853, 3447366, 8494979, [id number] ####[facility] (DEFAULT)[address] [place] [address] 00531 Potassium [Moles/Vol] 4.3 mmol/L Normal 3.6-5.1 [facility] Comment on above: Performed By: #### 1 4971269, 4710520, 2718740, [id number] ####[facility] (DEFAULT)[address] [place] [address] 81567 Protein [Mass/Vol] 7.8 g/dL Normal 6.5-8.1 [facility] Comment on above: Performed By: #### 1 [id number] ####[facility] (DEFAULT)[address] [place] [address] 88073 Sodium [Moles/Vol] 129.0 mmol/L Low 136.0-144.0 [facility] Comment on above: Performed By: #### 1 [id number] ####[facility] (DEFAULT)[address] [place] [address] 91858 Urea nitrogen [Mass/Vol] 8 mg/dL Normal 8-26 [facility] Comment on above: Performed By: #### 1 [id number], [id number] ####[facility] (DEFAULT)[address] [place] [address] 09992 Urea nitrogen/Creatinine [Mass ratio] 10.9 mg/mg Normal 4.6-16.2 [facility] Comment on above: Performed By: #### 1 [id number], [id number] ####[facility] (DEFAULT)[address] [place] [address] 10385 ED Clinical Summaryon 2022 ED Clinical Summary [facility] - Emergency Department [address] [place] [address] ED Clinical Summary PERSON INFORMATION Name: DOUGLAS CORDOVA Age: 27 Years Sex: FEMALE : 1995 MRN: Acct#: Visit Reason: Hyperglycemia; Hyperglycemia; HIGH BLOOD SUGAR Arrival: 05/29/2023 22:26:11 Discharge: 05/30/2023 02:16:00 LOS: 000 03:50 Check In: 05/29/2023 22:26:11 Checkout:05/30/2023 02:16:00 Address: [address] [facility] [address] PCP: ARCADIO IGLESIAS PROVIDER INFORMATION Provider Role [...] penicillin PHYSICIAN DOCUMENTATION DISCHARGE INFORMATION: Discharge Disposition: Nursing Home/Mcc Discharge Location: [facility] PATIENT EDUCATION INFORMATION Instructions: Hyperglycemia, [id number] Follow-Up: With: Address: When: Return to Emergency Department In 1 day 05/30/2023 Comments: home resume your normal insulin therapy tomorrow you are welcomed to return as needed You are medically cleared for confinement. T H ALEX< ER PHYSICIAN< H Hamilton Shah, 29 MAY 2023, 2255 hours DIAGNOSIS: Hyperglycemia without ketosis Patient Understands: Yes - Patient/family/careg iver verbalizes understanding of instructions given Comment: Sam [facility] ED Note - Physicianon 2022 ED Note - Physician Patient: DOUGLAS CORDOVA Age: 27 years Sex: FEMALE : 1995 Associated Diagnoses: Hyperglycemia without ketosis Author: Linn Johnson DO Basic Information Time seen: Date & time 05/29/2023 22:31:00, Easy ambulation past the fish bowl, in no distress, in presence of police investigator. History source: Patient. Arrival mode: Private vehicle, walking. History limitation: None. History of Present Illness The patient presents with This patient presents to the emergency room with an elevated blood sugar, she is a known diabetic, she is to be a resident in the local prison facility, she has not been using her [...] be started on the morning of the prison. Impression and Plan Diagnosis Hyperglycemia without ketosis ([id number] R73.9, Discharge, Medical) Plan Condition: Improved. Disposition: Discharged: time 05/30/2023 01:55:00. Patient was given the following educational materials: Hyperglycemia, [id number]. Follow up with: ; Return to Emergency [...] 05/30/2023 02:57 EST] Linn Johnson DO Normal [facility] ED Patient Summaryon 023 ED Patient Summary [facility] - Emergency Department [address] [place] [address] PATIENT DISCHARGE INSTRUCTIONS Patient Information Name: DOUGLAS CORDOVA Age: 27 Years Date of : 1995 Reason For Visit: Hyperglycemia; Hyperglycemia; HIGH BLOOD SUGAR Arrival Time: 05/29/2023 22:26:11 Primary Care Physician: ARCADIO IGLESIAS Attending Physician: Linn Johnson DO Comment: Visit Diagnosis: Diagnoses This Visit Hyperglycemia ([id number]) Hyperglycemia ([id number]- [id number]) Hyperglycemia without ketosis (R73.9) The Pharmacy at [facility] is open Friday through Friday from 9A [...] alcohol and/or drug addiction problems; contact the [facility] 20/01 Crisis Hotline -Text 4CJPE ul [phone]. If you received any narcotics, sedation, or [...] and treatment you received today in the [facility] Emergency Department were for an urgent problem and are not intended as complete care. It is important for you to follow up with a doctor, nurse practitioner, or physician?s car rental sales assistant for ongoing care. If your symptoms become [...] so we can reach you if necessary. [facility] Emergency Department has provided you with a complete list of medications post discharge. Please inform your primary clinician/provider of your visit and for further instruction [...] a day. Durable Medical Equipment for Prescription ([employer] DASH PODS (GEN 4) 5PK) change q [...] EDT teste (more content not included)... Normal [facility] Ketone Serumon 05-30-2023 Ketone Serum Small Normal Negative [facility] Comment on above: Performed By: #### 1 [id number], [id number] ####[facility] (DEFAULT)[address] [place] [address] 92364 Outside Recordson 05-30-2023 Outside Records [id number]. [id number] Normal [facility] POCT Glucose Levelon 023 Glucose [Mass/Vol] 288 mg/dL High [address] [place] [address] Comment on above: Performed By: #### 4 [id number] ####[facility] (DEFAULT)[address] [place] [address] 32649 Glucose [Mass/Vol] 278 mg/dL High [address] [place] [address] Comment on above: Performed By: #### 7 [id number] #### [facility] (DEFAULT) [address] [place] [address] 66844 Glucose [Mass/Vol] 389 mg/dL High [address] [place] [address] Comment on above: Performed By: #### 4 [id number] ####[facility] (DEFAULT)[address] [place] [address] 86517 Glucose [Mass/Vol] 590 mg/dL Critically abnormal [address] [place] [address] Comment on above: Performed By: #### 2 [id number] #### [facility] (DEFAULT) [address] [place] [address] 83370 Glucose, POC >600 Critically abnormal [address] [place] [address] Comment on above: Result Comment: read high Performed By: #### 2 [id number] #### [facility] (DEFAULT) [address] [place] [address] 02238 Test Urine 1on U Preg Negative [facility] Comment on above: Performed By: #### 3 [id number] ####[facility] (DEFAULT)[address] [place] [address] U Preg Internal Control Pass Normal [facility] Comment on above: Performed By: #### 3 [id number] ####[facility] (DEFAULT)[address] [place] [address] Progress Note - Nurseon - Progress Note - Nurse PT and [employer] deputy advised of discharge instructions-advised to check glucose every 2 hours until stable then to follow prison protocol-may return at any time, educated on s/s of hypoglycemia to watch for. [place] provided with medical clearance form. Pt assisted back into personal clothing and cuffed by officer for custody. Pt provided with education and resources for transitional housing, [facility], and [facility] hope line. Pt counseled on addiction and [...] on: 05/30/2023 02:13 EST] Shellie Turner RN [facility] Telemetry Stripson 3 Telemetry Strips [id number] [facility] Coding Summaryon 03-27-2023 [facility] DyhvimvqXDx6jYi+PGhl YWQ+XO6PHSQnH77ktULw qD7cR9RERZyEChwfRLML TLxFCtIpyuEgKR2wuYSn ZXJu IC8+KR1xFFNyOxctcGVz s0V7gUS1I69nuy3sHLjk qQH2LUJkAhOxxrpry4vw gSt4UEjgIqimXkUv UAKbuO74TCH6nS27Qn45 sOWtgPYku3oyeFc4EeMh ZVIqTDP9fRvyRUhgf0Wh ZLZhI15ayQSer8J3 IGNvbGxhcHNlOyBlbXB0 xA0jCIqrxgtjb6hiiitx Vjm9pn94gSVku6J8zVB5 R5YebkN8NSIumGXl FnwagWUUlZ0nffybz5dl gmbuNyFnUAOcMGz8QIo1 RDBdiXpyNkFhDB16IQK8 MTBpgvKaD7GiAOCs sYbxVmD9g3L5Tt8CW1QA DvmdR2NIKZDOOKabrQW+ DF96qt63F7PqAyffZke1 NERbJRW4uCC8tR0t VZXkFTqsi1T3lNF3E6Tg tpQzia3jl5bvLVCiQNpk W60jpVTzn2Y3DGEymVV6 WSJzbAtsSgCojU22 Oyc+MIJhaMcxc0XfEdvm r8iaz3fkfBw2WnbdSGCo miOamIkrSJQ2n3WoLn8e FPRijKW6wGI8lB6s AsDgYkT7FWtzA890ZeZr qUToDbqyL08jK7XlmCR+ PUFfUqa4ZRBtqHxhWD7j Z8MtTNTitfqstLVj xQwlES4wZHRbkjvlFRGg rK5pBDKbF1l3AqFoIlM7 MSdeY5CkUSZqxaodMp73 xZ5tMlDeUcZ5ZJvj P8PfzbK6MMEctSLtIIpr MIZ8F57bf1N7TAObIAIv CXM9tAL3uP8puNrobjsn bGVmdDsgdmVydGlj SYkdOXfgR899DBXaePjw PkNvZGluZyBEYXRlOiAg MDkvMjgvMjAyMzwvdGQ+ MGEfXTA5lNzbVHCo oICnTDwpPh3dkNupcGxs WP3tQTJzayyaIFWmiB2e NNDuqTHysLejRS0fGFTj uxijv570PtZrSIU0 ZTPidAFaR1MgzO6lSkTd VXSuOFRxE8PmnOSjWFig Q388MGmbKpV4BHDetpRe X6LiTAKyiUzuAqV6 d2R7Ki2Qr0LqctcoL9Bq nRHcPrPqBpnvWJf5C8Yg PjwvdHI+MB80XHPrJP49 VIf9IUM2yZryIXtx AQLaP4UrnG8zLbZaBHHg ZGRkOyc+PHRhYmxlIHdp ZHRoPScxMDAlJyBzdHls JH9dSj9jZHMiSDNj vObagOMoVwBpt8ivSJGx DGpfMG9unUzzC1UtgQE6 SISfa0s7Rx14J98vN1Dj dXA+CAAgqGR7gKI0 wE2vKiYxMaY9RRlkR124 GwBtsPIrCcmhy0jhk8wl vVg3FqL8VRBdzpSjnDxd UKT2d6WiJe06P16r IHdpZHRoPSIxNSUiIHZh jDuaew7iqK3qYc1+PGNv vHF9hTS9nZ9nZbUsKaF0 MWpbU348GaHwoKYb Kmina7iol0obyAj5BlGa XUGrsiRxoPtjDXZ2n1Ib Qc76A9VnkNybd6NhYxh3 fj75ySShg3J4cOZ5 O4WaXOFonxkfsZUnnUzl YQ3qBIEtrtlqEIUwyP3k THWcP0z1FbQlZmL6XIsm M1MiekT3IRFjrDBg MVQguMNBwA2ontdzz9ob pwpwDjXmAVHtJXf0HRd5 NYMyoPndWfLvHDS4RjZ3 XNE1rNHvbF5cnPca zzxeiY1rXqq+SBT1eNZa kTFZAH3vFffgtPH+PHRk OZD8nJseQPhvLLZlzE3q FLFeH9q1TmLbVjW9 BIbbS7GjyzU9AQNcjMYd JZDicZOWfM0clfadv4tf qefgCcEqZZMvMHs8TRx6 LWFsaWduOiBsZWZ0 OsH7CBV3bGDfuO6uiDjl lvncwL1uBle+QmlydGgg WBT9ICz8L8MqSqq8BMAo hLusTR6ljTTbFAqu Hc9uvXncsStmDK5wFOWx idckj595KhEbp7kxNRZc vVCoXQejWQI4F08vn0Z3 MTCiPWSwXUJ1zSD3 bE4bmVcmaycgoSFudQbg moEsdVmrMZftVWlhD170 TKIhhIlvHcBeWYt7P7Gc Xkb2FGTlkShaMI9n hZUbWEkiWn9vdJaftGwt RX8eHYKrqznhx308IxPw i6tzHLDrjIXuGWocJQP8 D49al7E2SWGzLQHz VXS4xYR3gK2yvCzmojik bGVmdDsgdmVydGljYWwt MSwyT707RPGeySjcHtVy lAl1Q7BiBpa4LYFz oEfxRX5nzLBbGPbjJo7u eViidSkpWN8zYEGlggwl m525BnHjg9taLWWzfIBt CAavOSR5U28nw8S0 UPUtWYSiREV4rRF6jE6x bGlnbjogbGVmdDsgdmVy tTsbVApmZRqzO320RMBk cDsnPlBhdGllbnQg SJqtAEt0I6DzIsimgHF+ XE77HCFeDZ26gXDqzAWh m1qypIv2FbHsPKWfFEJ8 dFxfZFmof7RbGEQy A10obBYsg7H4CCLqyXpb fHCpHoOqsYA2fB0gWUnn dcsky9auqxesHcdbl8wv ly59pF52S22nSCyt ZHRoPSIzMCUiIHZhbGln lp6raH8oUw0+PGNvbCB3 tBG1wJ0xFUQsRuP8UPbh X872UqQwwJEjRaxj n8xwk2szrHe1OfI4QGTe tbXnzBsrWFO5j9QnPx31 I24vCTwqEDHgXWHvIXHg SDLuoEtqcd5keX6r Ii8+QUJueXY0lBB5wO1d VlHjZhX2ESiyT665YqKe wZJeMtqrM30jY5TzuVV+ LKAlIzi4NLApwKlr LW1baHRgCKclZm2rBBQ0 OzLlNiZwGIaiL9AbULGw ghvuqoaaqVF1ICCvYKEn mD12Lf9lfOfgLEYz tCPSbK1gawffw1fqhuzl BhTdAZOrLJq8LOg7MJSd iUvqHrOlMUX2KfZ8HUC4 mUDoqU5idZmrrbfr rS8sB2RxBDHytziqJv14 gW4lPwZdOyX0UYwxZnx+ SD6ANJGDZMYXBSgZWLXK OM80YL48mHRce7F4 nBV0B8AjBSGeyqlkpaob jDK8YETtZMXfyU66dJQr DWdxBl2qu8D2a391WDGc VRIwpK77Om9aoNmh LYXgeZOMhY8fuwhox7ji qrotJtIiKRFjFQg3BIg1 SFOywXjwBfZiQHQ8AaQ9 TYJ5dQUbxF9zjEyi mlpjbX6lKhy+MTIvMDUv JPl4TfnvkJO+PHRkIHN0 rRhsFBemIKQzjV0yTGLs S9j5JuVdMgN4GRlr O3CeOBZgibdwFb32vU9b LgTvXcJ8GGwjC1HiqdW6 OJAqbTYgRRtvMWF2B62z b8D2BUFwDGToZDG8 oIX1pM5szTllwmhptPIt dDsgdmVydGljYWwtYWxp C084NYDipFgvTfJ0CBzs ORBdGG14FU42kRGm b4O8aGJ8M0RtAMKxdedn dishkXL9YMBxNONwaJ20 yMDmLWsqGl9og9V5u256 LQZwJHKduG42Wx6o yJpqFIHlgZXRlN2upkjv k8jxmcbjOuUiXNKlFYi1 JLc6WLZnzUmdTjCmEHD8 VyZ6SZP3zJRfsJ3t xDacnsliiU1uWox+RkVN KEkBXE48UM02wTQqn1L7 jQR3Y2OsLDNmzwjszpms dFT0AYXdWISepG84 aDXhPLwiOm5zp2M3x800 HULnJPHnmE36Zu7tfPiy QPJxlOUWhI3avpkul1ck cjogIzAwMDAwMDt0 ROx5FCTyrIcgIlEwTOH3 TwC8VUH7hJCtcV8ghEcq rplilB4kSxg+HP7kzqrq pjN3FD42OR59A0Ye PjwvdGFibGU+PHRhYmxl IHdpZHRoPScxMDAlJyBz tJazTM2fUy9lBCQzVKMl mEintOGsThThc9nx GIPjJFpwBC2gyZspX4Xu lNT2MRXmo4i4Ew00S77x E3FkmKF+TLKurKQ9oWG5 qF0pXpJaXjG1CHuo Y908DpQhaNSqQjqlu1ux i5ynqKw0UoKsWCCnzoCo sXpiEIH6g5SqFf15W03k IHdpZHRoPSIyMCUi ZVRffQdjdg9duB1tBw7+ FMVdpLA3pPW9bZ3iNsCt HwN6AUcaL132JnGgrNQc TfebX07vA9WtjWV+ ZDKoGax4CBOykAieRC6r bXBiMYerEw8iLDI1BeDn VdMaDCuiL5LkBYFhcbfi scwfaYT1YALzZVAh rV49Yd0suQfuGx7bYRRb HSG9GRHtsHTpF7UijF7j XnDnGYGsEYIqS5JbsYIk JVsvN997BIpvXcK1 VFZvjaCdK9WfMMMyhHrh SbV3d0Q0Gc4EaIsvuFIe FI7sApMoBGx1H0BiAqh1 MZUdkNxoHU0dnYCn YGkoWt1pbWkmnCgrKS1a FTLtbximo285OmVdz4zp LWAmnEGtOYioVBO4M56u y9F6TFWeURTqJPS6 fKU2uV0vbWweyzgysXTu dDsgdmVydGljYWwtYWxp A914SXBgaPudBtMPHtd6 J6BpOzo0WXMsuLel KC8ywBGmBWrfOu6lbWzg vOaaLB9hBENyhopea393 YfPaw2oqFOFixRKySZyu PKD8V90mv8O9MRBv EHIkYOF7zXV6yL4eyMzo bjogbGVmdDsgdmVydGlj XUtcJMrvO265IINmzThl Cc6XBxm5N4KuGmd7 AIHgsBbyOY4vvMQkOEot Kw1ojUyjjOkzZM7qEKWx fgndu068AfIwc6wkDWXz yVOzJEcqEFA9U04a d0Z5PXZgJVAhGAL4eVK7 mN1eyYmwnpmlcNXjsQbr slJagFujOTfsIAdqT446 IHRvcDsnPlBheWVy OjwvdGQ+GA70yg45M3Fy BmmaNvy8CMMcGGO5fBN3 hB8dTTCyBRggg9H5nNP4 I3GxljGggf3dp3ne YXB (more content not included)... [facility] Coding Summaryon 03-25-2023 Coding Summary HTMLBase 64 KrxlnycdNUf6xNs+PGhl YWQ+JT5VTLPjQ86bzJQb zC1dP7NYKJnXPvlxKQTZ WQgGOfJyxsTaVP2keXNf ZXJu IC8+OI1bTVKhVwyijRIx n0H3kKD6J57ccq9hDPbb fBB4JJAlPtJdevuqd9qe mZa9ZHxvXjjtMyZf AGNziG81UYP7jG19Bp76 tCMplOKwi1stfFw0BiRr SJPdDSJ8yPpiFOzcn0Mc YNHxW97esWGud2E9 IGNvbGxhcHNlOyBlbXB0 aL5kTEllojcqu7gpruyf Dsy2zq96fFJzb6U9pUJ3 J4VwlsA5EGRxpFWq PfhhkLVXqP2choxbm8au norzQrOyFIFhZRo0BCi9 GTLjmMphRrFjDE26ZHI0 ZFKmkpOaL0YwYTDo jDuyGtW9e9V3Wb1SH4MB QujsK6RFLELDPHkwtOZ+ IO05os56R7ErVzzsSst7 SORyRRE1jSS6uK3j UFJvDCcph7V7dSR8U9Kj feVgwg0ot0fzEERxSRft T59ipQFhd0O3ZQWnxTC9 DFBvgQkeRmWvtJ38 Oyc+MTGqbXmeh2CyIonk h8hqx1djjKt0OxzdTPXh zmCbhPwaRWO6y1OsRy1z CGPddEN5jPU5wX8o TwVfYnR8JCgoW022LbMb bOQeUxfmN88zU2RcfXF+ GISeTlo6SHHnlFnuRS3x H4CxRUTjdinmqNZp sVcpTF3cYWOzzdgpVHFv wC0aSMYeK0h1IwUyYhK1 ICbeL4XqFUCsldmkKc57 jB5yMoChEfL5NGmj X3GnbfN9FODsdZVaTNtm LRR9Z21eh3B1NZYpFZRi KVU3fDX6rN7kmCtfuuew bGVmdDsgdmVydGlj NQqqUMesB326QSKicNbf PkNvZGluZyBEYXRlOiAg MDkvMjYvMjAyMzwvdGQ+ HPQoTAK1hInsTUKi cUHzOUzrLf5mbAjmpDkl UR7bUGWjfbkkFQKnlG6g TXFnnDKpsTzwCL0dLYDg tvcmt125LjJgODZ5 MMRspDRnV5NpzB9sIsFy ODWoWRNkZ5UmuQBcDNiw S083ILprEmR9BWGdheYf G4RqJHYdvZxyAsT8 h2C0Cq4Hw7CreaapZ6Bc xAPjTnVzAgciYOv6K0Vy PjwvdHI+NF00GGKgMF86 LSf4OZA7fBjtOCyb RIPqU9EfkB1iMbPaOVZq ZGRkOyc+PHRhYmxlIHdp ZHRoPScxMDAlJyBzdHls IK6bNz9vVXYdHBUi eGthhXEkRkUai8tlLMLw DDlnUS1fcGepF5UfuOV5 KLUtd5q0Fx23K33fP3Ex dXA+MGRteDZ6tRP9 zE2gXcGpHqD9XJypC144 CaDsaVPkJaivq4kpu0nh vDt3FxW3DKEvuzIqeUci NBM9o4VpCf75E28i IHdpZHRoPSIxNSUiIHZh uPiwfu4uyN3uXb3+PGNv lKG3lOZ1qD4dBbZbYwM2 IBufP705QaJbaAFj Ffeml0xlc5rhdRh1GpZx PFNyumMdtJayRVB2u6Ug Zg72Q7XkpJvfe4YhPui3 mm69cHAvj0N9uQV9 M1GqPQUxrcszfDZbiLdm XB0iQZDjsktcXHCmcK7g JSWbZ3a7JxAdLzW5GHjr V9RhblL8EOAfhSJi RMIatINHlO5obuimd8lh rsjqMeBwVQKqXFc2TMb3 DKCeoJjmIhWrGXP6DhK3 JBB7tDLrlC7vzLrh tpyemY0jOzr+NXT7kHNe jFXJPS7pTvwnqOB+PHRk LMI2wHarUNaySKJniL7n QUEfC8s6YiFiMrM8 ZPfgG3PrygF6KYZqjXOb PMQpyOWJkJ0lawvns5ya rsuhAvAoLYBrSGe2JMh2 LWFsaWduOiBsZWZ0 LqX7DRP3vXRyvV3twEpe pntuxR7pTmi+QmlydGgg FEE3BDg5Z1DzQuu3SECe xRttER9ouLAmPHlv Jr0pqLtyaIunDH9oSCXs ceydu166UoQqv0lfEQFw lZEaXPqtDHK2R48id6P0 DDUgCPBdNSY4rKZ0 jE0amSkvuyicvTOyaGkb qjPdkKtkNWlpIPobL751 KUBpuRfbEzPdOWh5J6Yg Yrb4GVBtnOwoRG4n cEZsGBjrPv4aiIwvvZrq HD4qNHAxwkurl443LnHq s3ihGKZtuSUyJVdnGWN1 O29hz9C0KSCqUFXv GTO8eKJ0yM8chQmgjhsr bGVmdDsgdmVydGljYWwt CGanE101ZCCvjYfgVmMh vNn6S0QbPmi1MIJw tYqsFD2jdDFcAFjkCn4l mYubfPvwNC8uBICoxaem x101GtCea2yjRGNjaWIj HIieBXV6Z82ux3T3 JYUtGBQnNTN2fWJ2aY8i bGlnbjogbGVmdDsgdmVy xDldRFswTPcxQ281CEFh cDsnPlBhdGllbnQg SHseROa4C7JkEhvbwSW+ WH39QHJwQG11rPPgkQGp h3kmlZu7ApXfERBpFTD7 rIhtKDgpa7PpHZYq B93acNZoo1P7BGNnpKfp jGClAiFlbGY0fZ2nRGla uvbyy2kkzyvyOzqzd4vx bz17bU58X37sWNbj ZHRoPSIzMCUiIHZhbGln lo6kbB4bLx3+PGNvbCB3 kHC3dT3zTWQbHzL6XPpc T502JlTlqDYkZewr p9mqd7egyBx5ItQ2ESKd rmAqpWioIMM0v1IdCy06 F92eWJodPGYfOJWkBSHc XDKyhTdroh3noI6m Ii8+AYAaxAX6iWW3eA9a LmDqTjU6PXxcU477JnVn wKSpOshuO45cH5QxgXI+ SNPrXxu5WSVbcMhe VQ4ilRFuFKqxMr0iWYC5 YcDjAxVgLRmcW8SlZEEj ftklfxtrmCV7LADmKXJs aP42Ah5ivTuoTEWn hCBAdD5evxchw1euycum RjMtUABsLPm4ZTs4SJYe eFptZsSzKXM2WyJ7VPU8 xTBvqB8paZodqcba rJ5uL8QiKMIfscrvGp40 kR5uSbMhErQ5UEomZmc+ ZH2JCORLRGCBTXfWDCCT NS22ZY95kWEmi9S6 pDV2G7WcEVCufegospkk vKB6GLNhKCYzlE65zPRr RThcMg6zh0C3q869BTSz BNTgeL49Gv7ysOuf MCOqsLBAlI6bsmoto9sa nidcWtLfYPQiAZj7RYg1 VGOylCwhFsPwMJE2BoY2 NRO2wGNiqQ4tmJfg llbuiG3xMqc+MTIvMDUv JUo7XpainXC+PHRkIHN0 jYfnDLqiLNFopE0dYMCn E0b8KsFjCsB8GDyo Z6CzKOCwhiuvBo77yZ0x LbMqXbL9TFzjH9NdjjS1 XTUxmRCgHMikRWA9W45p k2S7MBOfBHFbNVJ1 hUO4xO7orZmhanflrPEl dDsgdmVydGljYWwtYWxp F640MBLwsDkdIdK5PPxf MZZlDS02DJ63vTNq c8Z6aOV4X5CcIZDuzchf isbqkBR5LZVpSUDzfZ59 kEEnKXbjJc8no0D9l036 MAFtFVAegB72Wg4s jGbfZNAgeGVDeB9foffl r2uxbzwyOlQhRUPrHDl0 TDw7OVLgwLlsFhEdBBD2 YkZ1SWQ9oRRlqA3y pJepiszqgB7xWqk+RkVN LSsPYZ80YO04hSAor8P5 hHB3U4MqRDTrdnrtzuby dWM3YGQrVVTsbL20 kRXyBLtnBb4tu2I6x877 KPYuTUEwsR69Gu6akKzl IPNhmQNLfE5vnakum7yr cjogIzAwMDAwMDt0 WPs3SJDcoSlgJgQrGLZ7 GxD8YZP9tJVrbC7qrAng ftevsR1wNso+V2DlYXW3 WOIkp363V1GyRnan dHI+EX58NRDmIZ96cZDa kNCrn9lybGq3GcZyOLKt LHC3vEmdTUjic8WiUOLc F50upMNlc3B3BSGr lZqldBTjIvGkrAX7wC0o BRhtbbczo8atvctdMwlr k9haxs68gR19R13sSOsq ZHRoPSIzMCUiIHZh dEmhja4mvY0rTc2+PGNv zAP0aJJ0xB2mOtSgSaQ1 NLqaD889DzTbeFZfLqzx b9ylk9pozGe5LcZk SHRxwuWsvRmaCJB6v0Zb Qj65A78hHAcqMBZoDHDh ILShJWCdpIkqqh8ldS9q Ii8+JD7ox8dxys57 oW43pMR+XWVyXMC0yHis KKonSPKtkR9sINkjJjC5 XXHhPdQptV66lGWjQLlz Ey8drFdbpSdmXW2p CAQtnkmhh401ZmBxk4ys FEOwwUPeBHedNRA2D07c u6E3MELbWVKlBCT2pWZ4 mP9foIygywjhtDXj dDsgdmVydGljYWwtYWxp R634BLFikObkYhNyzULr M0piyiDQQH7fMwrotRE+ EEHbENO8kZjsWBiv MPKwsO0qBDPuX4u0WdGh WeK0CQavL2VkmkL6LJVf oDHfOKFaqPJWkK6rhxla m9nnyavzBbLpVATj WYd1SNd7GUYaaSuvTvXq ZWG0GkJ6NGL0vHIckV6y sVlchkpcxC3xSwf+RklO OjwvdGQ+PHRkIHN0 tTnlHViyFUAokL8aIAFp J7u5XwDoCjE8UDhpD0Lj ejO1HZTxaGIkYJNjnHMQ zV5wyolyg2rugmnq SgGaJHEbWNe3AEz7TFKd kLyjHhHfRCH8LnR3ZJK4 qYWxeW9hiIelwdstlA0q Oyc+TVJOOjwvdGQ+ XVIpLLY7tTkzUGpmBDEn wI5tGIWjY3f1UzDtEnF5 VDlvW0IaelK0SCMygOVf TSNytTJDuT9unjgf t2xmpozkRmZrPTMqZXl8 RUq4CCXyyOggNiNmQZI4 KjB5CAU9qYSifT6plZsa kmtuqF0nQaz+UGF5 LUA7CG11VN88U5EnRbil dGFibGU+PHRhYmxlIHdp ZHRoPScxMDAlJyBzdHls LN9wAa9yENDzICKp bGx (more content not included)... Normal [facility] C Bloodon 03-23-2023 C Blood No growth at 5 Days Normal [facility] Comment on above: Performed By: #### 2 [id number] #### [facility] (DEFAULT) [address] [place] [address] Cult,Bloodon 03-23-2023 Cult,Blood Specimen Description .BLOOD Special Requests R HAND 2ML Culture NO GROWTH 5 DAYS Report Status FINAL 03/23/2023 [facility] Comment on above: Performed By: #### Jose EJEC, HEPXA #### [facility] [address] [place], [place] [id number] Database Administration Manager: Norman Blake MD Cult,Blood Specimen Description .BLOOD Special Requests L HAND 2ML Culture NO GROWTH 5 DAYS Report Status FINAL 03/23/2023 [facility] Comment on above: Performed By: #### Jam RODAS IOCAL #### [email or web address] [address] [place] [id number] Database Administration Manager: Norman Blake MD Basic Metab w/rfx MGon 03-20 Potassium [Moles/Vol] 3.3 mmol/L Low 3.7-5.3 [facility] Comment on above: Performed By: #### Jam RODAS IOCAL #### [facility] [address] [place] [address] [id number] Database Administration Manager: Norman Blake MD Anion gap [Moles/Vol] 8 mmol/L Low 9-17 [facility] Comment on above: Performed By: #### Jam RODAS IOCAL #### [facility] [employer] [address] [place] [address] Database Administration Manager: Norman Blake MD Calcium [Mass/Vol] 7.3 mg/dL Low 8.6-10.4 [facility] Comment on above: Performed By: #### Jam RODAS IOCAL #### [facility] [employer] [address] [place] [address] Database Administration Manager: Norman Blake MD Chloride [Moles/Vol] 100 mmol/L Normal 98-107 [facility] Comment on above: Performed By: #### Jam RODAS IOCAL #### [facility] [employer] [address] [place] [address] Database Administration Manager: Norman Blake MD CO2 [Moles/Vol] 28 mmol/L Normal 20-31 [facility] Comment on above: Performed By: #### Jam RODAS IOCAL #### [facility] [employer] [address] [place] [address] Database Administration Manager: Norman Blake MD Creatinine [Mass/Vol] 0.4 mg/dL Low 0.5-0.9 [facility] Comment on above: Performed By: #### Jam RODAS IOCAL #### [facility] [employer] [address] [place] [address] Database Administration Manager: Norman Blake MD GFR/1.73 sq M.predicted among non-blacks MDRD (S/P/Bld) [Vol rate/Area] mL/min/{1.73_m2} Normal >60 [facility] Comment on above: Result Comment: These [...] secretion. Performed By: #### IRAIDA DUBOISCAL #### [facility] [employer] [address] [place] [address] Database Administration Manager: Norman Blake MD Glucose [Mass/Vol] 226 mg/dL High 70-99 [facility] Comment on above: Performed By: #### Jam RODAS IOCAL #### [facility] [employer] [address] [place] [address] Database Administration Manager: Norman Blake MD Sodium [Moles/Vol] 136 mmol/L Normal 135-144 [facility] Comment on above: Performed By: #### Jam RODAS IOCAL #### [facility] [employer] [address] [place] [address] Database Administration Manager: Norman Blake MD Urea nitrogen [Mass/Vol] 4 mg/dL Low 6-20 [facility] Comment on above: Performed By: #### IRAIDA DUBOISCAL #### [facility] [employer] [address] [place] [address] Database Administration Manager: Norman Blake MD CBC with Diffon 03-20-2023 Abs. Basophil <0.03 Normal 0.00-0.20 [facility] Comment on above: Performed By: #### Jose WELCH HEPXA #### [facility] [employer] [address] [place] [address] Database Administration Manager: Norman Blake MD Abs. Eosinophil <0.03 Normal 0.00-0.44 [facility] Comment on above: Performed By: #### Jose EJANNA, HEPXA #### [facility] [employer] [address] [place] [address] Database Administration Manager: Norman Blake MD Abs.Imm.Granulocyte <0.03 Normal 0.00-0.30 [facility] Comment on above: Performed By: #### R EJEC, HEPXA #### [address] [address] Database Administration Manager: Norman Blake MD Abs.Neutrophil (Seg) 2.46 k/uL Normal 1.50-8.10 [facility] Comment on above: Performed By: #### R EJEC, HEPXA #### [address] [address] Database Administration Manager: Norman Blake MD Basophils/100 WBC (Bld) 0 % Normal 0-2 [facility] Comment on above: Performed By: #### R EJEC, HEPXA #### [address] [address] Database Administration Manager: Norman Blake MD Eosinophils/100 WBC (Bld) 0 % Low 1-4 [facility] Comment on above: Performed By: #### R EJEC, HEPXA #### [address] [address] Database Administration Manager: Norman Blake MD Erythrocyte distribution width (RBC) [Ratio] 14.7 % High 11.8-14.4 [facility] Comment on above: Performed By: #### R EJEC, HEPXA #### [address] [address] Database Administration Manager: Norman Blake MD Hematocrit (Bld) [Volume fraction] 30.8 % Low 36.3-47.1 [facility] Comment on above: Performed By: #### R EJEC, HEPXA #### [address] [address] Database Administration Manager: Norman Blake MD Hemoglobin (Bld) [Mass/Vol] 9.8 g/dL Low 11.9-15.1 [facility] Comment on above: Performed By: #### R EJEC, HEPXA #### [address] [address] Database Administration Manager: Norman Blake MD Immature granulocytes/100 WBC (Bld) 0 % Normal 0 [facility] Comment on above: Performed By: #### R EJEC, HEPXA #### [address] [address] [address] Database Administration Manager: Norman Blake MD Lymphocytes (Bld) [#/Vol] 1.66 10*3/uL Normal 1.10-3.70 [facility] Comment on above: Performed By: #### R EJEC, HEPXA #### [address] [address] Database Administration Manager: Norman Blake MD Lymphocytes/100 WBC (Bld) 38 % Normal 24-43 [facility] Comment on above: Performed By: #### R EJEC, HEPXA #### [address] [address] Database Administration Manager: Norman Blake MD MCH (RBC) [Entitic mass] 24.8 pg Low 25.2-33.5 [facility] Comment on above: Performed By: #### R EJEC, HEPXA #### [address] [address] Database Administration Manager: Norman Blake MD MCHC (RBC) [Mass/Vol] 31.8 g/dL Normal 28.4-34.8 [facility] Comment on above: Performed By: #### R EJEC, HEPXA #### [address] [address] Database Administration Manager: Norman Blake MD MCV (RBC) [Entitic vol] 78.0 fL Low 82.6-102.9 M [facility] Comment on above: Performed By: #### R EJEC, HEPXA #### [address] [address] Database Administration Manager: Norman Blake MD Monocytes (Bld) [#/Vol] 0.25 10*3/uL Normal 0.10-1.20 [facility] Comment on above: Performed By: #### R EJEC, HEPXA #### [address] [address] Database Administration Manager: Norman Blake MD Monocytes/100 WBC (Bld) 6 % Normal 3-12 M [facility] Comment on above: Performed By: #### R EJEC, HEPXA #### [address] [address] Database Administration Manager: Norman Blake MD Neutrophil (Seg) 56 % Normal 36-65 [facility] Comment on above: Performed By: #### R EJEC, HEPXA #### [address] [address] Database Administration Manager: Norman Blake MD NRBC Automated 0.0 per 100 WBC Normal 0.0 [facility] Comment on above: Performed By: #### R EJEC, HEPXA #### [address] [address] Database Administration Manager: Norman Blake MD Platelet mean volume (Bld) [Entitic vol] 10.5 fL Normal 8.1-13.5 [facility] Comment on above: Performed By: #### R EJEC, HEPXA #### [address] [address] Database Administration Manager: Norman Blake MD Platelets (Bld) [#/Vol] 154 10*3/uL Normal 138-453 [facility] Comment on above: Performed By: #### R EJEC, HEPXA #### [address] [address] Database Administration Manager: Norman Blake MD RBC (Bld) [#/Vol] 3.95 10*6/uL Normal 3.95-5.11 [facility] Comment on above: Performed By: #### R EJEC, HEPXA #### [facility] [address] [place] [address] Database Administration Manager: Norman Blake MD RBC morphology finding Nom (Bld) ANISOCYTOSIS PRESENT Normal [facility] Comment on above: Result Comment: MICR OCYTOSIS PRESENT Performed By: #### R EJEC, HEPXA #### [facility] [employer] [facility] [address] [place] [address] Database Administration Manager: Norman Blake MD WBC (Bld) [#/Vol] 4.4 10*3/uL Normal 3.5-11.3 [facility] Comment on above: Performed By: #### Jose WELCH, HEPXA #### [facility] [address] [place] [address] Database Administration Manager: Norman Blake MD Heparin Anti-Xaon 03-20-2023 Heparin Anti-Xa 0.46 IU/L Normal [facility] Comment on above: Performed By: #### Jose WELCH, HEPXA #### [facility] [address] [place] [address] Database Administration Manager: Norman Blake MD Magnesiumon 03-20-2023 Magnesium [Mass/Vol] 2.0 mg/dL Normal 1.6-2.6 [facility] Comment on above: Performed By: #### Jam RODAS, IOCAL #### [facility] [address] [place] [address] Database Administration Manager: Norman Blake MD Troponinon 03-20-2023 Troponin, High Sens 295 ng/L Critically high 0-14 [facility] Comment on above: Result Comment: High Sensitivity Troponin values cannot be compared with other Troponin methodologies. Previous Alert Value Reported Performed By: #### Jam RODAS, IOCAL #### [facility] [address] [place] [address] Database Administration Manager: Norman Blake MD Troponin, High Sens 308 ng/L Critically high 0-14 [facility] Comment on above: Result Comment: High Sensitivity Troponin values cannot be compared with other Troponin methodologies. Previous Alert Value Reported Performed By: #### R EJEC, HEPXA #### [address] [address] Database Administration Manager: Norman Blake MD Basic Metabolic Profon 03-19 Potassium [Moles/Vol] 2.7 mmol/L Critically low 3.7-5.3 [facility] Comment on above: Performed By: #### H EPXA, TROPI, CDP, BMP #### [facility] [address] [place] [address] Database Administration Manager: Norman Blake MD Anion gap [Moles/Vol] 8 mmol/L Low 9-17 [facility] Comment on above: Performed By: #### H EPXA, TROPI, CDP, BMP #### [facility] [address] [place] [address] Database Administration Manager: Norman Blake MD Calcium [Mass/Vol] 6.0 mg/dL Low 8.6-10.4 [facility] Comment on above: Performed By: #### H EPXA, TROPI, CDP, BMP #### [facility] [address] [place] [address] Database Administration Manager: Norman Blake MD Chloride [Moles/Vol] 101 mmol/L Normal 98-107 [facility] Comment on above: Performed By: #### H EPXA, TROPI, CDP, BMP #### [facility] [address] [place] [address] Database Administration Manager: Norman Blake MD CO2 [Moles/Vol] 25 mmol/L Normal 20-31 [facility] Comment on above: Performed By: #### H EPXA, TROPI, CDP, BMP #### [facility] [address] [place] [address] Database Administration Manager: Norman Blake MD Creatinine [Mass/Vol] 0.3 mg/dL Low 0.5-0.9 [facility] Comment on above: Performed By: #### H EPXA, TROPI, CDP, BMP #### [address] [address] Database Administration Manager: Norman Blake MD GFR/1.73 sq M.predicted among non-blacks MDRD (S/P/Bld) [Vol rate/Area] mL/min/{1.73_m2} Normal >60 [facility] Comment on above: Result Comment: These [...] #### H EPXA, TROPI, CDP, BMP #### [facility] [address] [place] [address] Database Administration Manager: Norman Blake MD Glucose [Mass/Vol] 156 mg/dL High 70-99 [facility] Comment on above: Performed By: #### H EPXA, TROPI, CDP, BMP #### [facility] [address] [place] [address] Database Administration Manager: Norman Blake MD Sodium [Moles/Vol] 134 mmol/L Low 135-144 [facility] Comment on above: Performed By: #### H EPXA, TROPI, CDP, BMP #### [facility] [address] [place] [address] Database Administration Manager: Norman Blake MD Urea nitrogen [Mass/Vol] 4 mg/dL Low 6-20 [facility] Comment on above: Performed By: #### H EPXA, TROPI, CDP, BMP #### [facility] [address] [place] [address] Database Administration Manager: Norman Blake MD Potassium [Moles/Vol] 2.5 mmol/L Critically low 3.7-5.3 [facility] Comment on above: Performed By: #### H EPXA, TROPI, CDP, BMP #### [facility] [address] [place] [address] Database Administration Manager: Norman Blake MD Anion gap [Moles/Vol] 7 mmol/L Low 9-17 [facility] Comment on above: Performed By: #### H EPXA, TROPI, CDP, BMP #### [facility] [address] [place] [address] Database Administration Manager: Norman Blake MD Calcium [Mass/Vol] 6.0 mg/dL Low 8.6-10.4 [facility] Comment on above: Performed By: #### H EPXA, TROPI, CDP, BMP #### [facility] [address] [place] [address] Database Administration Manager: Norman Blake MD Chloride [Moles/Vol] 100 mmol/L Normal 98-107 [facility] Comment on above: Performed By: #### H EPXA, TROPI, CDP, BMP #### [facility] [address] [place] [address] Database Administration Manager: Norman Blake MD CO2 [Moles/Vol] 23 mmol/L Normal 20-31 [facility] Comment on above: Performed By: #### H EPXA, TROPI, CDP, BMP #### [facility] [address] [place] [address] Database Administration Manager: Norman Blake MD Creatinine [Mass/Vol] 0.4 mg/dL Low 0.5-0.9 [facility] Comment on above: Performed By: #### H EPXA, TROPI, CDP, BMP #### [facility] [address] [place] [address] Database Administration Manager: Norman Blake MD GFR/1.73 sq M.predicted among non-blacks MDRD (S/P/Bld) [Vol rate/Area] mL/min/{1.73_m2} Normal >60 [facility] Comment on above: Result Comment: These [...] #### H EPXA, TROPI, CDP, BMP #### [facility] [address] [place] [address] Database Administration Manager: Norman Blake MD Glucose [Mass/Vol] 240 mg/dL High 70-99 [facility] Comment on above: Performed By: #### H EPXA, TROPI, CDP, BMP #### [email or web address] [address] [place] [address] Database Administration Manager: Norman Blake MD Sodium [Moles/Vol] 130 mmol/L Low 135-144 [facility] Comment on above: Performed By: #### H EPXA, TROPI, CDP, BMP #### [email or web address] [address] [place] [address] Database Administration Manager: Norman Blake MD Urea nitrogen [Mass/Vol] 6 mg/dL Normal 6-20 [facility] Comment on above: Performed By: #### H EPXA, TROPI, CDP, BMP #### [email or web address] [address] [place] [address] Database Administration Manager: Norman Blake MD C Urineon 03-19-2023 C Urine Urine Culture ordered as a result of parameters set on specific urine dip and urine microsopic results. >3 Organisms Consistent with Contamination Recollection suggested. Normal [facility] Comment on above: Performed By: #### [id number], [id number], [id number], [id number] ####[facility] (DEFAULT)[address] [place] [address] CBC with Diffon 03-19-2023 Abs. Basophil <0.03 Normal 0.00-0.20 [facility] Comment on above: Performed By: #### H EPXA, TROPI, CDP, BMP #### [facility] [address] [place] [address] Database Administration Manager: Norman Blake MD Abs. Eosinophil <0.03 Normal 0.00-0.44 [facility] Comment on above: Performed By: #### H EPXA, TROPI, CDP, BMP #### [facility] [address] [place] [address] Database Administration Manager: Norman Blake MD Abs.Imm.Granulocyte <0.03 Normal 0.00-0.30 [facility] Comment on above: Performed By: #### H EPXA, TROPI, CDP, BMP #### [facility] [address] [place] [address] Database Administration Manager: Norman Blake MD Abs.Neutrophil (Seg) 5.63 k/uL Normal 1.50-8.10 [facility] Comment on above: Performed By: #### H EPXA, TROPI, CDP, BMP #### [facility] [address] [place] [address] Database Administration Manager: Norman Blake MD Basophils/100 WBC (Bld) 0 % Normal 0-2 M [facility] Comment on above: Performed By: #### H EPXA, TROPI, CDP, BMP #### [facility] [address] [place] [address] Database Administration Manager: Norman Blake MD Eosinophils/100 WBC (Bld) 0 % Low 1-4 [facility] Comment on above: Performed By: #### H EPXA, TROPI, CDP, BMP #### [facility] [address] [place] [address] Database Administration Manager: Norman Blake MD Erythrocyte distribution width (RBC) [Ratio] 14.0 % Normal 11.8-14.4 [facility] Comment on above: Performed By: #### H EPXA, TROPI, CDP, BMP #### [facility] [address] [place] [address] Database Administration Manager: Norman Blake MD Hematocrit (Bld) [Volume fraction] 31.0 % Low 36.3-47.1 [facility] Comment on above: Performed By: #### H EPXA, TROPI, CDP, BMP #### [facility] [address] [place] [address] Database Administration Manager: Norman Blake MD Hemoglobin (Bld) [Mass/Vol] 10.9 g/dL Low 11.9-15.1 [facility] Comment on above: Performed By: #### H EPXA, TROPI, CDP, BMP #### [facility] [address] [place] [address] Database Administration Manager: Norman Blake MD Immature granulocytes/100 WBC (Bld) 0 % Normal 0 [facility] Comment on above: Performed By: #### H EPXA, TROPI, CDP, BMP #### [facility] [address] [place] [address] Database Administration Manager: Norman Blake MD Lymphocytes (Bld) [#/Vol] 1.34 10*3/uL Normal 1.10-3.70 [facility] Comment on above: Performed By: #### H EPXA, TROPI, CDP, BMP #### [facility] [address] [place] [address] Database Administration Manager: Norman Blake MD Lymphocytes/100 WBC (Bld) 18 % Low 24-43 [facility] Comment on above: Performed By: #### H EPXA, TROPI, CDP, BMP #### [facility] [place] [address] Database Administration Manager: Norman Blake MD MCH (RBC) [Entitic mass] 25.8 pg Normal 25.2-33.5 [facility] Comment on above: Performed By: #### H EPXA, TROPI, CDP, BMP #### [facility] [address] [place] [address] Database Administration Manager: Norman Blake MD MCHC (RBC) [Mass/Vol] 35.2 g/dL High 28.4-34.8 [facility] Comment on above: Performed By: #### H EPXA, TROPI, CDP, BMP #### [facility] [address] [place] [address] Database Administration Manager: Norman Blake MD MCV (RBC) [Entitic vol] 73.3 fL Low 82.6-102.9 [facility] Comment on above: Performed By: #### H EPXA, TROPI, CDP, BMP #### [facility] [address] [place] [address] Database Administration Manager: Norman Blake MD Monocytes (Bld) [#/Vol] 0.41 10*3/uL Normal 0.10-1.20 [facility] Comment on above: Performed By: #### H EPXA, TROPI, CDP, BMP #### [facility] [address] [place] [address] Database Administration Manager: Norman Blake MD Monocytes/100 WBC (Bld) 6 % Normal 3-12 [facility] Comment on above: Performed By: #### H EPXA, TROPI, CDP, BMP #### [facility] [address] [place] [address] Database Administration Manager: Norman Blake MD Neutrophil (Seg) 76 % High 36-65 [facility] Comment on above: Performed By: #### H EPXA, TROPI, CDP, BMP #### [address] [address] Database Administration Manager: Norman Blake MD NRBC Automated 0.0 per 100 WBC Normal 0.0 [facility] Comment on above: Performed By: #### H EPXA, TROPI, CDP, BMP #### [facility] [address] [place] [address] Database Administration Manager: Norman Blake MD Platelet mean volume (Bld) [Entitic vol] 9.5 fL Normal 8.1-13.5 [facility] Comment on above: Performed By: #### H EPXA, TROPI, CDP, BMP #### [facility] [address] [place] [address] Database Administration Manager: Norman Blake MD Platelets (Bld) [#/Vol] 189 10*3/uL Normal 138-453 [facility] Comment on above: Performed By: #### H EPXA, TROPI, CDP, BMP #### [facility] [address] [place] [address] Database Administration Manager: Norman Blake MD RBC (Bld) [#/Vol] 4.23 10*6/uL Normal 3.95-5.11 [facility] Comment on above: Performed By: #### H EPXA, TROPI, CDP, BMP #### [facility] [address] [place] [address] Database Administration Manager: Norman Blake MD RBC morphology finding Nom (Bld) MICROCYTOSIS PRESENT Normal [facility] Comment on above: Performed By: #### H EPXA, TROPI, CDP, BMP #### [address] [address] Database Administration Manager: Norman Blake MD WBC (Bld) [#/Vol] 7.4 10*3/uL Normal 3.5-11.3 [facility] Comment on above: Performed By: #### H EPXA, TROPI, CDP, BMP #### [address] [address] Database Administration Manager: Norman Blake MD Abs. Basophil <0.03 Normal 0.00-0.20 [facility] Comment on above: Performed By: #### H EPXA, TROPI, CDP, BMP #### [address] [address] Database Administration Manager: Norman Blake MD Abs. Eosinophil <0.03 Normal 0.00-0.44 [facility] Comment on above: Performed By: #### H EPXA, TROPI, CDP, BMP #### [address] [address] Database Administration Manager: Norman Blake MD Abs.Imm.Granulocyte <0.03 Normal 0.00-0.30 [facility] Comment on above: Performed By: #### H EPXA, TROPI, CDP, BMP #### [address] [address] Database Administration Manager: Norman Blake MD Abs.Neutrophil (Seg) 7.00 k/uL Normal 1.50-8.10 [facility] Comment on above: Performed By: #### H EPXA, TROPI, CDP, BMP #### [place] [address] Database Administration Manager: Norman Blake MD Basophils/100 WBC (Bld) 0 % Normal 0-2 M [facility] Comment on above: Performed By: #### H EPXA, TROPI, CDP, BMP #### [address] [address] Database Administration Manager: Norman Blake MD Eosinophils/100 WBC (Bld) 0 % Low 1-4 [facility] Comment on above: Performed By: #### H EPXA, TROPI, CDP, BMP #### [facility] [address] [place] [address] Database Administration Manager: Norman Blake MD Erythrocyte distribution width (RBC) [Ratio] 14.2 % Normal 11.8-14.4 [facility] Comment on above: Performed By: #### H EPXA, TROPI, CDP, BMP #### [facility] [address] [place] [address] Database Administration Manager: Norman Blake MD Hematocrit (Bld) [Volume fraction] 31.1 % Low 36.3-47.1 [facility] Comment on above: Performed By: #### H EPXA, TROPI, CDP, BMP #### [facility] [address] [place] [address] Database Administration Manager: Norman Blake MD Hemoglobin (Bld) [Mass/Vol] 10.8 g/dL Low 11.9-15.1 [facility] Comment on above: Performed By: #### H EPXA, TROPI, CDP, BMP #### [facility] [address] [place] [address] Database Administration Manager: Norman Blake MD Immature granulocytes/100 WBC (Bld) 0 % Normal 0 [facility] Comment on above: Performed By: #### H EPXA, TROPI, CDP, BMP #### [facility] [address] [place] [address] Database Administration Manager: Norman Blake MD Lymphocytes (Bld) [#/Vol] 0.85 10*3/uL Low 1.10-3.70 [facility] Comment on above: Performed By: #### H EPXA, TROPI, CDP, BMP #### [address] [address] Database Administration Manager: Norman Blake MD Lymphocytes/100 WBC (Bld) 10 % Low 24-43 [facility] Comment on above: Performed By: #### H EPXA, TROPI, CDP, BMP #### [address] [address] Database Administration Manager: Norman Blake MD MCH (RBC) [Entitic mass] 25.4 pg Normal 25.2-33.5 [facility] Comment on above: Performed By: #### H EPXA, TROPI, CDP, BMP #### [address] [address] Database Administration Manager: Norman Blake MD MCHC (RBC) [Mass/Vol] 34.7 g/dL Normal 28.4-34.8 [facility] Comment on above: Performed By: #### H EPXA, TROPI, CDP, BMP #### [address] [address] Database Administration Manager: Norman Blake MD MCV (RBC) [Entitic vol] 73.2 fL Low 82.6-102.9 M [facility] Comment on above: Performed By: #### H EPXA, TROPI, CDP, BMP #### [address] [address] Database Administration Manager: Norman Blake MD Monocytes (Bld) [#/Vol] 0.44 10*3/uL Normal 0.10-1.20 [facility] Comment on above: Performed By: #### H EPXA, TROPI, CDP, BMP #### [address] [address] Database Administration Manager: Norman Blake MD Monocytes/100 WBC (Bld) 5 % Normal 3-12 [facility] Comment on above: Performed By: #### H EPXA, TROPI, CDP, BMP #### [facility] [address] [place] [address] Database Administration Manager: Norman Blake MD Neutrophil (Seg) 84 % High 36-65 [facility] Comment on above: Performed By: #### H EPXA, TROPI, CDP, BMP #### [facility] [address] [place] [address] Database Administration Manager: Norman Blake MD NRBC Automated 0.0 per 100 WBC Normal 0.0 [facility] Comment on above: Performed By: #### H EPXA, TROPI, CDP, BMP #### [facility] [address] [place] [address] Database Administration Manager: Normna Blake MD Platelet mean volume (Bld) [Entitic vol] 9.5 fL Normal 8.1-13.5 [facility] Comment on above: Performed By: #### H EPXA, TROPI, CDP, BMP #### [facility] [address] [place] [address]473 Database Administration Manager: Norman Blake MD Platelets (Bld) [#/Vol] 194 10*3/uL Normal 138-453 [facility] Comment on above: Performed By: #### H EPXA, TROPI, CDP, BMP #### [facility] [address] [place] [address] Database Administration Manager: Norman Blake MD RBC (Bld) [#/Vol] 4.25 10*6/uL Normal 3.95-5.11 [facility] Comment on above: Performed By: #### H EPXA, TROPI, CDP, BMP #### [facility] [address] [place] [address]68 Database Administration Manager: Norman Blake MD RBC morphology finding Nom (Bld) MICROCYTOSIS PRESENT Normal [facility] Comment on above: Performed By: #### H EPXA, TROPI, CDP, BMP #### [address] [address] Database Administration Manager: Norman Blake MD WBC (Bld) [#/Vol] 8.3 10*3/uL Normal 3.5-11.3 [facility] Comment on above: Performed By: #### H EPXA, TROPI, CDP, BMP #### [facility] [address] [place] [address] Database Administration Manager: Norman Blake MD Cult,Urineon 03-19-2023 Cult,Urine Specimen Description .CLEAN CATCH URINE Culture NO GROWTH Report Status FINAL 03/19/2023 Normal [facility] Comment on above: Performed By: #### U RC #### [address] [address] Database Administration Manager: Norman Blake MD Electrolyteson 03-19-2023 Anion gap [Moles/Vol] 10 mmol/L Normal 9-17 [facility] Comment on above: Performed By: #### Jam RODAS IOCAL #### [address] [address] Database Administration Manager: Norman Blake MD Chloride [Moles/Vol] 94 mmol/L Low 98-107 [facility] Comment on above: Performed By: #### Jam RODAS IOCAL #### [facility] [address] [place] [address] Database Administration Manager: Norman Blake MD CO2 [Moles/Vol] 25 mmol/L Normal 20-31 [facility] Comment on above: Performed By: #### Jam RODAS IOCAL #### [facility] [address] [place] [address] 55463 Database Administration Manager: Norman Blake MD Potassium [Moles/Vol] 3.5 mmol/L Low 3.7-5.3 [facility] Comment on above: Performed By: #### D CLARK, IOCAL #### [facility] [address] [place] [address] 33024 Database Administration Manager: Norman Blake MD Sodium [Moles/Vol] 129 mmol/L Low 135-144 [facility] Comment on above: Performed By: #### D CLARK, IOCAL #### [facility] [address] [place] [address] 83023 Database Administration Manager: Norman Blake MD Anion gap [Moles/Vol] 11 mmol/L Normal 9-17 [facility] Comment on above: Performed By: #### H EPXA, TROPI, CDP, BMP #### [facility] [address] [place] [address] 98207 Database Administration Manager: Norman Blake MD Chloride [Moles/Vol] 95 mmol/L Low 98-107 [facility] Comment on above: Performed By: #### H EPXA, TROPI, CDP, BMP #### [facility] [address] [place] [address] 73614 Database Administration Manager: Norman Blake MD CO2 [Moles/Vol] 24 mmol/L Normal 20-31 [facility] Comment on above: Performed By: #### H EPXA, TROPI, CDP, BMP #### [facility] [address] [place] [address] 40789 Database Administration Manager: Norman Blake MD Potassium [Moles/Vol] 3.4 mmol/L Low 3.7-5.3 [facility] Comment on above: Performed By: #### H EPXA, TROPI, CDP, BMP #### [facility] [address] [place] [address] 90720 Database Administration Manager: Norman Blake MD Sodium [Moles/Vol] 130 mmol/L Low 135-144 [facility] Comment on above: Performed By: #### H EPXA, TROPI, CDP, BMP #### [facility] [address] [place], [place] [address], [place] [address] Database Administration Manager: Norman Blake MD Heparin Anti-Xaon 03-19-2023 Heparin Anti-Xa 0.37 IU/L Normal [facility] Comment on above: Performed By: #### R EJEC, HEPXA #### [facility] [address] [place] [address] 44555 Database Administration Manager: Norman Blake MD Heparin Anti-Xa 0.40 IU/L Normal [facility] Comment on above: Performed By: #### H EPXA, TROPI, CDP, BMP #### [facility] [address] [place] [address] 58709 Database Administration Manager: Norman Blake MD Heparin Anti-Xa 0.16 IU/L Normal [facility] Comment on above: Performed By: #### H EPXA, TROPI, CDP, BMP #### [facility] [address] [place] [address] 88653 Database Administration Manager: Norman Blake MD Heparin Anti-Xa 0.12 IU/L Normal [facility] Comment on above: Performed By: #### H EPXA, TROPI, CDP, BMP #### [facility] [address] [place] [address] 25332 Database Administration Manager: Norman Blake MD MRSA, DNA, Nasalon MRSA, DNA, Nasal Negative Normal NEG [facility] Comment on above: Result Comment: NEGA TIVE: MRSA DNA not detected by nucleic acid amplification. Results should be used as an adjunct to nosocomial control efforts to identify patients needing enhanced precautions. The test is not intended to identify patients with staphylococcal infections. Results should not be used to guide or monitor treatment for MRSA infections. Performed By: #### D CLARK, IOCAL #### [facility] [address] [place] [address] 48944 Database Administration Manager: Norman Blake MD Magnesiumon 03-19-2023 Magnesium [Mass/Vol] 1.9 mg/dL Normal 1.6-2.6 [facility] Comment on above: Performed By: #### D CLARK, IOCAL #### [facility] [address] [place] [address] 58459 Database Administration Manager: Norman Blake MD Magnesium [Mass/Vol] 1.9 mg/dL Normal 1.6-2.6 [facility] Comment on above: Performed By: #### H EPXA, TROPI, CDP, BMP #### [facility] [address] [place] [address] 64531 Database Administration Manager: Norman Blake MD Magnesium [Mass/Vol] 2.0 mg/dL Normal 1.6-2.6 [facility] Comment on above: Performed By: #### R EJEC, HEPXA #### [facility] [address] [place] [address] 15923 Database Administration Manager: Norman Blake MD Magnesium [Mass/Vol] 2.0 mg/dL Normal 1.6-2.6 [facility] Comment on above: Performed By: #### Jam RODAS, IOCAL #### [facility] [address] [place] [address] 81984 Database Administration Manager: Norman Blake MD Magnesium [Mass/Vol] 1.6 mg/dL Normal 1.6-2.6 [facility] Comment on above: Performed By: #### H EPXA, TROPI, CDP, BMP #### [facility] [address] [place] [address] 84248 Database Administration Manager: Norman Blake MD Phosphorus, Inorg.on 023 Phosphorus, Inorg. 1.7 mg/dL Low 2.6-4.5 [facility] Comment on above: Performed By: #### D CLARK, IOCAL #### [facility] [address] [place] [address] 51141 Database Administration Manager: Norman Blake MD Phosphorus, Inorg. 1.5 mg/dL Low 2.6-4.5 [facility] Comment on above: Performed By: #### H EPXA, TROPI, CDP, BMP #### [email or web address] [address] [place] [address] 73322 Database Administration Manager: Norman Blake MD Phosphorus, Inorg. 1.3 mg/dL Low 2.6-4.5 [facility] Comment on above: Performed By: #### R EJEC, HEPXA #### [facility] [address] [place] [address] 87563 Database Administration Manager: Nomran Blake MD Phosphorus, Inorg. 1.1 mg/dL Low 2.6-4.5 [facility] Comment on above: Performed By: #### D CLARK, IOCAL #### [email or web address] [address] [place] [address] 47542 Database Administration Manager: Norman Blake MD Phosphorus, Inorg. 0.7 mg/dL Critically low 2.6-4.5 [facility] Comment on above: Performed By: #### H EPXA, TROPI, CDP, BMP #### [email or web address] [address] [place] [address] 16600 Database Administration Manager: Norman Blake MD Troponinon 03-19-2023 Troponin, High Sens 328 ng/L Critically high 0-14 [facility] Comment on above: Result Comment: High Sensitivity Troponin values cannot be compared with other Troponin methodologies. Previous Alert Value Reported Performed By: #### D CLARK, IOCAL #### [email or web address] [address] [place] [address] 56527 Database Administration Manager: Norman Blake MD Troponin, High Sens 389 ng/L Critically high 0-14 [facility] Comment on above: Result Comment: High Sensitivity Troponin values cannot be compared with other Troponin methodologies. Previous Alert Value Reported Performed By: #### H EPXA, TROPI, CDP, BMP #### [facility] [address] Database Administration Manager: Norman Blake MD Troponin, High Sens 481 ng/L Critically high 0-14 [facility] Comment on above: Result Comment: High Sensitivity Troponin values cannot be compared with other Troponin methodologies. Previous Alert Value Reported Performed By: #### H EPXA, TROPI, CDP, BMP #### [address] [address] Database Administration Manager: Norman Blake MD Troponin, High Sens 649 ng/L Critically high 0-14 [facility] Comment on above: Result Comment: High Sensitivity Troponin values cannot be compared with other Troponin methodologies. Previous Alert Value Reported Performed By: #### H EPXA, TROPI, CDP, BMP #### [address] [address] Database Administration Manager: Norman Blake MD Venous Blood Gaseson 023 Body Temp. 37.0 Normal [facility] Comment on above: Performed By: #### Jam RODAS IOCAL #### [address] [address] Database Administration Manager: Norman Blake MD Carboxy Hgb 1.1 % Normal 0-5 [facility] Comment on above: Result Comment: Reference Range: Non-Smokers 0-2% Average Smoker 2-4% Heavy Smoker <10% Performed By: #### Jam RODAS IOCAL #### [address] [address] Database Administration Manager: Norman Blake MD FIO2 Unknown Normal [facility] Comment on above: Performed By: #### Jam RODAS, IOCAL #### [facility] [address] [place] [address] 56419 Database Administration Manager: Norman Blake MD HCO3 (Bld) [Moles/Vol] 25.9 mmol/L Normal 24-30 [facility] Comment on above: Performed By: #### D CLARK, IOCAL #### [facility] [address] [place] [address] Database Administration Manager: Norman Blake MD Oxygen saturation in Blood 97.3 % High 60.0-85.0 [facility] Comment on above: Performed By: #### D CLARK, IOCAL #### [facility] [address] [place] [address] 97023 Database Administration Manager: Norman Blake MD pCO2 40.3 mm Hg Normal 39-55 [facility] Comment on above: Performed By: #### Jam RODAS, IOCAL #### [facility] [address] [place] [address] 42466 Database Administration Manager: Norman Blake MD pH (Bld) 7.424 [pH] High 7.320-7.420 [facility] Comment on above: Performed By: #### Jam RODAS, IOCAL #### [facility] [address] [place] [address] 93597 Database Administration Manager: Norman Blake MD pO2 128.0 mm Hg High 30-50 [facility] Comment on above: Performed By: #### Jam RODAS, IOCAL #### [facility] [address] [place] [address] 92122 Database Administration Manager: Norman Blake MD Positive Base Excess 1.8 mmol/L Normal 0.0-2.0 [facility] Comment on above: Performed By: #### D CLARK, IOCAL #### [facility] [address] [place] [address] 41411 Database Administration Manager: Norman Blake MD .Auto Diff - Auto Nolan % 3 % Normal -12 [facility] Comment on above: Performed By: #### 7 [id number], [id number], [id number], [id number], [id number], [id number] ####[facility] (DEFAULT)[address] [place] [address] 57688 Baso Abs# 0.1 x10 Normal 0.0-0.2 [facility] Comment on above: Performed By: #### 7 [id number], [id number], [id number], [id number], [id number], [id number] ####[facility] (DEFAULT)[address] [place] [address] 75976 Basophils/100 WBC (Bld) 0.6 % Normal 0.2-2.0 [facility] Comment on above: Performed By: #### 7 [id number], [id number], [id number], [id number], [id number], [id number] ####[facility] (DEFAULT)[address] [place] [address] 75983 Eos Abs# 0.0 x10 Normal 0.0-0.4 [facility] Comment on above: Performed By: #### 7 061372, [id number], [id number], [id number], [id number], [id number] ####[facility] (DEFAULT)[address] [place] [address] 41246 Eosinophils/100 WBC (Bld) 0.1 % Low 0.9-4.0 [facility] Comment on above: Performed By: #### 7 [id number], [id number], [id number], [id number], [id number], [id number] ####[facility] (DEFAULT)[address] [place] [address] 38518 Lymph Abs# 1.4 x10 Normal 1.3-2.9 [facility] Comment on above: Performed By: #### 7 225254, [id number], [id number], [id number], [id number], [id number] ####[facility] (DEFAULT)[address] [place] [address] 09966 Lymphocytes/100 WBC (Bld) 6 % Low 14-48 [facility] Comment on above: Performed By: #### 7 [id number], [id number], [id number], [id number], [id number], [id number] ####[facility] (DEFAULT)[address] [place] [address] 48774 Nolan Abs# 0.7 x10 Normal 0.0-0.8 [facility] Comment on above: Performed By: #### 7 [id number], [id number], [id number], [id number], [id number], [id number] ####[facility] (DEFAULT)[address] [place] [address] 83909 Neut Abs# 19.8 x10 High 1.5-9.2 [facility] Comment on above: Performed By: #### 7 309747, [id number], [id number], [id number], [id number], [id number] ####[facility] (DEFAULT)[address] [place] [address] Neutrophils/100 WBC (Bld) 90 % High 44-88 [facility] Comment on above: Performed By: #### 7 [id number], [id number], [id number], [id number], [id number], [id number] ####[facility] (DEFAULT)[address] [place] [address] 32781 APTTon 03-18-2023 aPTT Coag (Bld) [Time] 20.5 s Low 23.0-36.5 [facility] Comment on above: Result Comment: IV Heparin Therapy Range: 66.0-92.0 sec Performed By: #### R EJEC, HEPXA #### [facility] [address] [place] [address] 66660 Database Administration Manager: Norman Blake MD Acet Levelon 03-18-2023 Acetaminoph Lvl <10 Normal 10-30 [facility] Comment on above: Performed By: #### 4 [id number] #### [facility] (DEFAULT) [address] [place] [address] 22645 Arterial Blood Gas Standardo n 03-18-2023 Cami Test Art Positive Normal [facility] Comment on above: Performed By: #### 1 [id number] ####[facility] (DEFAULT)[address] [place] [address] 96102 Breakpoint Hemo Normal [facility] Comment on above: Performed By: #### 1 [id number] ####[facility] (DEFAULT)[address] [place] [address] Device Room Air Normal [facility] Comment on above: Performed By: #### 1 [id number] ####[facility] (DEFAULT)[address] [place] [address] 83390 Fio2 Art 21.0 % Normal 21.0-100.0 [facility] Comment on above: Performed By: #### 1 [id number] ####[facility] (DEFAULT)[address] [place] [address] 98957 Oxygen saturation in Blood 96.9 % Normal 95.0-100.0 [facility] Comment on above: Performed By: #### 1 [id number] ####[facility] (DEFAULT)[address] [place] [address] pH Art 6.89 Critically abnormal 7.37-7.44 [facility] Comment on above: Result Comment: Crit ical pH results and PCO2 result will not calculate due to it being < 9.5 results given to Radha Cintron @2318 03/18/2023 per Anjana Garcia RRT. RBV Performed By: #### 1 [id number] ####[facility] (DEFAULT)[address] [place] [address] 23407 pO2 Art 144 mmHg High 75-100 [facility] Comment on above: Performed By: #### 1 [id number] ####[facility] (DEFAULT)[address] [place] [address] Puncture Site Right Radial Normal [facility] Comment on above: Performed By: #### 1 [id number] ####[facility] (DEFAULT)[address] [place] [address] Rate: 38 Invalid Interpretation Code [facility] Comment on above: Performed By: #### 1 [id number] ####[facility] (DEFAULT)[address] [place] [address] 54287 BNP.on 03-18-2023 Natriuretic peptide B (Bld) [Mass/Vol] 170.0 pg/mL High 0.0-100.0 [facility] Comment on above: Result Comment: BNP results greater than 100 pg/mL are considered abnormal and suggestive of patients with CHF. Higher BNP concentrations measured in the first 72 hours after an acute coronary syndorme are associated with an increased risk of , myocardial infarction, and CHF. Performed By: #### 4 [id number] #### [facility] (DEFAULT) [address] [place] [address] Basic Metabolic Profon 03-18 Potassium [Moles/Vol] 2.2 mmol/L Critically low 3.7-5.3 [facility] Comment on above: Performed By: #### Jam RODAS IOCAL #### [facility] [address] [place] [address] 85687 Database Administration Manager: Norman Blake MD Anion gap [Moles/Vol] 11 mmol/L Normal 9-17 [facility] Comment on above: Performed By: #### Jam RODAS IOCAL #### [facility] [address] [place] [address] 25939 Database Administration Manager: Norman Blake MD Calcium [Mass/Vol] 6.4 mg/dL Low 8.6-10.4 [facility] Comment on above: Performed By: #### Jam RODAS, IOCAL #### [facility] [address] [place] [address] 82118 Database Administration Manager: Norman Blake MD Chloride [Moles/Vol] 101 mmol/L Normal 98-107 [facility] Comment on above: Performed By: #### Jam RODAS, IOCAL #### [facility] [address] [place] [address] 35705 Database Administration Manager: Norman Blake MD CO2 [Moles/Vol] 19 mmol/L Low 20-31 [facility] Comment on above: Performed By: #### Jam RODAS, IOCAL #### [facility] [address] [place] [address] 17010 Database Administration Manager: Norman Blake MD Creatinine [Mass/Vol] 0.4 mg/dL Low 0.5-0.9 [facility] Comment on above: Performed By: #### Jam RODAS IOCAL #### [facility] [address] [place] [address] 05629 Database Administration Manager: Norman Blake MD GFR/1.73 sq M.predicted among non-blacks MDRD (S/P/Bld) [Vol rate/Area] mL/min/{1.73_m2} Normal >60 [facility] Comment on above: Result Comment: These [...] Performed By: #### Jam RODAS IOCAL #### [facility] [address] [place] [address] 95295 Database Administration Manager: Norman Blake MD Glucose [Mass/Vol] 149 mg/dL High 70-99 [facility] Comment on above: Performed By: #### Jam RODAS IOCAL #### [facility] [address] [place] [address] 21047 Database Administration Manager: Norman Blake MD Sodium [Moles/Vol] 131 mmol/L Low 135-144 [facility] Comment on above: Performed By: #### Jam RODAS IOCAL #### [email or web address] [address] [place] [address] 05429 Database Administration Manager: Norman Blake MD Urea nitrogen [Mass/Vol] 8 mg/dL Normal 6-20 [facility] Comment on above: Performed By: #### Jam RODAS, IOCAL #### [facility] [address] [place] [address] 89682 Database Administration Manager: Norman Blake MD Potassium [Moles/Vol] 2.5 mmol/L Critically low 3.7-5.3 [facility] Comment on above: Result Comment: TEST CONFIRMED Performed By: #### R EJEC, HEPXA #### [facility] [address] [place] [address] 63738 Database Administration Manager: Norman Blake MD Anion gap [Moles/Vol] 12 mmol/L Normal 9-17 [facility] Comment on above: Performed By: #### R EJEC, HEPXA #### [address] [address] Database Administration Manager: Norman Blake MD Calcium [Mass/Vol] 6.5 mg/dL Low 8.6-10.4 [facility] Comment on above: Performed By: #### R EJEC, HEPXA #### [address] [address] Database Administration Manager: Norman Blake MD Chloride [Moles/Vol] 104 mmol/L Normal 98-107 [facility] Comment on above: Performed By: #### R EJEC, HEPXA #### [address] [address] Database Administration Manager: Norman Blake MD CO2 [Moles/Vol] 13 mmol/L Low 20-31 [facility] Comment on above: Performed By: #### R EJEC, HEPXA #### [facility] [address] [place] [address] 27241 Database Administration Manager: Norman Blake MD Creatinine [Mass/Vol] 0.5 mg/dL Normal 0.5-0.9 [facility] Comment on above: Performed By: #### R EJEC, HEPXA #### [facility] [address] [place] [address] 95581 Database Administration Manager: Norman Blake MD GFR/1.73 sq M.predicted among non-blacks MDRD (S/P/Bld) [Vol rate/Area] mL/min/{1.73_m2} Normal >60 [facility] Comment on above: Result Comment: These [...] Performed By: #### R EJEC, HEPXA #### [facility] [address] [place] [address] 64072 Database Administration Manager: Norman Blake MD Glucose [Mass/Vol] 219 mg/dL High 70-99 [facility] Comment on above: Performed By: #### R EJEC, HEPXA #### [facility] [address] [place] [address] 16928 Database Administration Manager: Norman Blake MD Sodium [Moles/Vol] 129 mmol/L Low 135-144 [facility] Comment on above: Performed By: #### R EJEC, HEPXA #### [facility] [address] [place] [address] 47203 Database Administration Manager: Norman Blake MD Urea nitrogen [Mass/Vol] 10 mg/dL Normal 6-20 [facility] Comment on above: Performed By: #### R EJEC, HEPXA #### [facility] [address] [place] [address] 87401 Database Administration Manager: Norman Blake MD Anion gap [Moles/Vol] 18 mmol/L High 9-17 [facility] Comment on above: Performed By: #### R EJEC, HEPXA #### [facility] [address] [place] [address] 90532 Database Administration Manager: Norman Blake MD CO2 [Moles/Vol] 7 mmol/L Critically low 20-31 [facility] Comment on above: Performed By: #### R EJEC, HEPXA #### [address] [address] Database Administration Manager: Norman Blake MD Calcium [Mass/Vol] 6.5 mg/dL Low 8.6-10.4 [facility] Comment on above: Performed By: #### R EJEC, HEPXA #### [facility] [address] [place] [address] 90273 Database Administration Manager: Norman Blake MD Chloride [Moles/Vol] 105 mmol/L Normal 98-107 [facility] Comment on above: Performed By: #### R EJEC, HEPXA #### [address] [address] Database Administration Manager: Norman Blake MD Creatinine [Mass/Vol] 0.7 mg/dL Normal 0.5-0.9 [facility] Comment on above: Performed By: #### R EJEC, HEPXA #### [address] [address] Database Administration Manager: Norman Blake MD GFR/1.73 sq M.predicted among non-blacks MDRD (S/P/Bld) [Vol rate/Area] mL/min/{1.73_m2} Normal >60 [facility] Comment on above: Result Comment: These [...] Performed By: #### R EJEC, HEPXA #### [address] [address] Database Administration Manager: Norman Blake MD Glucose [Mass/Vol] 267 mg/dL High 70-99 [facility] Comment on above: Performed By: #### R EJEC, HEPXA #### [address] [address] Database Administration Manager: Norman Blake MD Potassium [Moles/Vol] 3.8 mmol/L Normal 3.7-5.3 [facility] Comment on above: Performed By: #### R EJEC, HEPXA #### [address] [address] Database Administration Manager: Norman Blake MD Sodium [Moles/Vol] 130 mmol/L Low 135-144 [facility] Comment on above: Performed By: #### R EJEC, HEPXA #### [address] [address] Database Administration Manager: Norman Blake MD Urea nitrogen [Mass/Vol] 15 mg/dL Normal 6-20 [facility] Comment on above: Performed By: #### R EJEC, HEPXA #### [address] [address] Database Administration Manager: Norman Blake MD Anion Gap Unable to calculate anion gap due to CO2 less than 6. Normal 9-17 [facility] Comment on above: Performed By: #### H EPXA, TROPI, CDP, BMP #### [address] [address] Database Administration Manager: Norman Blake MD Calcium [Mass/Vol] 6.4 mg/dL Low 8.6-10.4 [facility] Comment on above: Performed By: #### H EPXA, TROPI, CDP, BMP #### [address] [address] Database Administration Manager: Norman Blake MD Chloride [Moles/Vol] 104 mmol/L Normal 98-107 [facility] Comment on above: Performed By: #### H EPXA, TROPI, CDP, BMP #### [facility] [place] [address] Database Administration Manager: Norman Blake MD CO2 [Moles/Vol] mmol/L Critically low 20-31 [facility] Comment on above: Performed By: #### H EPXA, TROPI, CDP, BMP #### [facility] [address] [place] [address] 31073 Database Administration Manager: Norman Blake MD Creatinine [Mass/Vol] 0.7 mg/dL Normal 0.5-0.9 [facility] Comment on above: Performed By: #### H EPXA, TROPI, CDP, BMP #### [address] [address] Database Administration Manager: Norman Blake MD GFR/1.73 sq M.predicted among non-blacks MDRD (S/P/Bld) [Vol rate/Area] mL/min/{1.73_m2} Normal >60 [facility] Comment on above: Result Comment: These [...] #### H EPXA, TROPI, CDP, BMP #### [facility] [address] [place] [address]74 Database Administration Manager: Norman Blake MD Glucose [Mass/Vol] 254 mg/dL High 70-99 [facility] Comment on above: Performed By: #### H EPXA, TROPI, CDP, BMP #### [facility] [address] [place] [address] 37502 Database Administration Manager: Norman Blake MD Potassium [Moles/Vol] 3.8 mmol/L Normal 3.7-5.3 [facility] Comment on above: Performed By: #### H EPXA, TROPI, CDP, BMP #### [facility] [address] [place] [address] Database Administration Manager: Norman Blake MD Sodium [Moles/Vol] 129 mmol/L Low 135-144 [facility] Comment on above: Performed By: #### H EPXA, TROPI, CDP, BMP #### [facility] [address] [place] [address] Database Administration Manager: Norman Blake MD Urea nitrogen [Mass/Vol] 17 mg/dL Normal 6-20 [facility] Comment on above: Performed By: #### H EPXA, TROPI, CDP, BMP #### [facility] [address] [place] [address]73 Database Administration Manager: Norman Blake MD Beta Hydroxybutyrateon 03-18 Beta Hydroxybutyrate 3.84 mmol/L High 0.02-0.27 [facility] Comment on above: Performed By: #### H EPXA, TROPI, CDP, BMP #### [facility] [address] [place] [address] 6[address]10 Database Administration Manager: Norman Blake MD CBCon 03-18-2023 Erythrocyte distribution width (RBC) [Ratio] 14.2 % Normal 11.8-14.4 [facility] Comment on above: Performed By: #### R EJEC, HEPXA #### [facility] [address] [place] [address] 56555 Database Administration Manager: Norman Blake MD Hematocrit (Bld) [Volume fraction] 37.1 % Normal 36.3-47.1 [facility] Comment on above: Performed By: #### R EJEC, HEPXA #### [facility] [address] [place] [address] 61813 Database Administration Manager: Norman Blake MD Hemoglobin (Bld) [Mass/Vol] 11.7 g/dL Low 11.9-15.1 [facility] Comment on above: Performed By: #### R EJEC, HEPXA #### [address] [address] Database Administration Manager: Norman Blake MD MCH (RBC) [Entitic mass] 24.9 pg Low 25.2-33.5 [facility] Comment on above: Performed By: #### R EJEC, HEPXA #### [address] [address] Database Administration Manager: Norman Blake MD MCHC (RBC) [Mass/Vol] 31.5 g/dL Normal 28.4-34.8 [facility] Comment on above: Performed By: #### R EJEC, HEPXA #### [address] [address] Database Administration Manager: Norman Blake MD MCV (RBC) [Entitic vol] 79.1 fL Low 82.6-102.9 [facility] Comment on above: Performed By: #### R EJEC, HEPXA #### [address] [address] Database Administration Manager: Norman Blake MD NRBC Automated 0.0 per 100 WBC Normal 0.0 [facility] Comment on above: Performed By: #### R EJEC, HEPXA #### [address] [address] Database Administration Manager: Norman Blake MD Platelet mean volume (Bld) [Entitic vol] 10.0 fL Normal 8.1-13.5 [facility] Comment on above: Performed By: #### R EJEC, HEPXA #### [address] [address] Database Administration Manager: Norman Blake MD Platelets (Bld) [#/Vol] 232 10*3/uL Normal 138-453 [facility] Comment on above: Performed By: #### R EJEC, HEPXA #### [facility] [address] [place], [place] [id number] Database Administration Manager: Norman Blake MD RBC (Bld) [#/Vol] 4.69 10*6/uL Normal 3.95-5.11 [facility] Comment on above: Performed By: #### R EJEC, HEPXA #### [facility] [address] [place] [address] Database Administration Manager: Norman Blake MD WBC (Bld) [#/Vol] 16.6 10*3/uL High 3.5-11.3 [facility] Comment on above: Performed By: #### R EJEC, HEPXA #### [address] [address] Database Administration Manager: Norman Blake MD CBC w/ Auto Diffon 3 Erythrocyte distribution width (RBC) [Ratio] 15.6 % High 11.5-15.0 [facility] Comment on above: Order Comment: Patie nt is a hard stick. 3 Nurses have tried to do an IV. I am waiting to see if they get the IV started. 03/17/2023 22:08:47 EDT Performed By: #### 7 [id number], [id number], [id number], [id number], [id number], [id number] ####[facility] (DEFAULT)[address] [place] [address] Hematocrit (Bld) [Volume fraction] 47.0 % High 33.7-40.4 [facility] Comment on above: Order Comment: Patie nt is a hard stick. 3 Nurses have tried to do an IV. I am waiting to see if they get the IV started. 03/17/2023 22:08:47 EDT Performed By: #### 7 [id number], [id number], [id number], [id number], [id number], [id number] ####[facility] (DEFAULT)[address] [place] [address]47 Hemoglobin (Bld) [Mass/Vol] 14.5 g/dL Normal 11.3-15.9 [facility] Comment on above: Order Comment: Patie nt is a hard stick. 3 Nurses have tried to do an IV. I am waiting to see if they get the IV started. 03/17/2023 22:08:47 EDT Performed By: #### 7 [id number], [id number], [id number], [id number], [id number], [id number] ####[facility] (DEFAULT)[address] [place] [address] Man Diff? Auto Invalid Interpretation Code [facility] Comment on above: Order Comment: Patie nt is a hard stick. 3 Nurses have tried to do an IV. I am waiting to see if they get the IV started. 03/17/2023 22:08:47 EDT Performed By: #### 7 [id number], [id number], [id number], [id number], [id number], [id number] ####[facility] (DEFAULT)[address] [place] [address] 11815 MCH (RBC) [Entitic mass] 25 pg Normal 24-34 [facility] Comment on above: Order Comment: Patie nt is a hard stick. 3 Nurses have tried to do an IV. I am waiting to see if they get the IV started. 03/17/2023 22:08:47 EDT Performed By: #### 7 [id number], [id number], [id number], [id number], [id number], [id number] ####[facility] (DEFAULT)[address] [place] [address] 21822 MCHC (RBC) [Mass/Vol] 31 g/dL Normal 26-37 [facility] Comment on above: Order Comment: Patie nt is a hard stick. 3 Nurses have tried to do an IV. I am waiting to see if they get the IV started. 03/17/2023 22:08:47 EDT Performed By: #### 7 [id number], [id number], [id number], [id number], [id number], [id number] ####[facility] (DEFAULT)[address] [place] [address] 22482 MCV (RBC) [Entitic vol] 81 fL Normal 81-100 [facility] Comment on above: Order Comment: Patie nt is a hard stick. 3 Nurses have tried to do an IV. I am waiting to see if they get the IV started. 03/17/2023 22:08:47 EDT Performed By: #### 7 [id number], [id number], [id number], [id number], [id number], [id number] ####[facility] (DEFAULT)[address] [place] [address] Platelet 381 x10 Normal 138-427 [facility] Comment on above: Order Comment: Patie nt is a hard stick. 3 Nurses have tried to do an IV. I am waiting to see if they get the IV started. 03/17/2023 22:08:47 EDT Performed By: #### 7 [id number], [id number], [id number], [id number], [id number], [id number] ####[facility] (DEFAULT)[address] [place] [address]645 Platelet mean volume (Bld) [Entitic vol] 8.3 fL Normal 6.3-10.2 [facility] Comment on above: Order Comment: Patie nt is a hard stick. 3 Nurses have tried to do an IV. I am waiting to see if they get the IV started. 03/17/2023 22:08:47 EDT Performed By: #### 7 [id number], [id number], [id number], [id number], [id number], [id number] ####[facility] (DEFAULT)[address] [place] [address] 30514 RBC 5.80 x10 High 3.70-5.30 [facility] Comment on above: Order Comment: Patie nt is a hard stick. 3 Nurses have tried to do an IV. I am waiting to see if they get the IV started. 03/17/2023 22:08:47 EDT Performed By: #### 7 [id number], [id number], [id number], [id number], [id number], [id number] ####[facility] (DEFAULT)[address] [place] [address]171 WBC 22.0 x10 High 3.5-10.5 [facility] Comment on above: Order Comment: Patie nt is a hard stick. 3 Nurses have tried to do an IV. I am waiting to see if they get the IV started. 03/17/2023 22:08:47 EDT Result Comment: Slid e Reviewed Performed By: #### 7 [id number], [id number], [id number], [id number], [id number], [id number] ####[facility] (DEFAULT)[address] [place] [address]241 CBC with Diffon 03-18-2023 Abs. Basophil 0.03 k/uL Normal 0.00-0.20 [facility] Comment on above: Performed By: #### H EPXA, TROPI, CDP, BMP #### [facility] [address] [place] [address]153 Database Administration Manager: Norman Blake MD Abs.Imm.Granulocyte 0.11 k/uL Normal 0.00-0.30 [facility] Comment on above: Performed By: #### H EPXA, TROPI, CDP, BMP #### [email or web address] [address] [place] [address] 93651 Database Administration Manager: Norman Blake MD Abs.Neutrophil (Seg) 16.38 k/uL High 1.50-8.10 [facility] Comment on above: Performed By: #### H EPXA, TROPI, CDP, BMP #### [email or web address] [address] [place] [address] 85400 Database Administration Manager: Norman Blake MD Basophils/100 WBC (Bld) 0 % Normal 0-2 [facility] Comment on above: Performed By: #### H EPXA, TROPI, CDP, BMP #### [email or web address] [address] [place] [address] 16057 Database Administration Manager: Norman Blake MD Eosinophils (Bld) [#/Vol] 0.06 10*3/uL Normal 0.00-0.44 [facility] Comment on above: Performed By: #### H EPXA, TROPI, CDP, BMP #### [address] [address] Database Administration Manager: Norman Blake MD Eosinophils/100 WBC (Bld) 0 % Low 1-4 [facility] Comment on above: Performed By: #### H EPXA, TROPI, CDP, BMP #### [facility] [address] [place] [address]99 Database Administration Manager: Norman Blake MD Erythrocyte distribution width (RBC) [Ratio] 13.9 % Normal 11.8-14.4 [facility] Comment on above: Performed By: #### H EPXA, TROPI, CDP, BMP #### [facility] [address] [place] [address] 44813 Database Administration Manager: Norman Blake MD Hematocrit (Bld) [Volume fraction] 36.6 % Normal 36.3-47.1 [facility] Comment on above: Performed By: #### H EPXA, TROPI, CDP, BMP #### [facility] [address] [place] [address] 90039 Database Administration Manager: Norman Blake MD Hemoglobin (Bld) [Mass/Vol] 11.8 g/dL Low 11.9-15.1 [facility] Comment on above: Performed By: #### H EPXA, TROPI, CDP, BMP #### [facility] [address] [place] [address] 30398 Database Administration Manager: Norman Blake MD Immature granulocytes/100 WBC (Bld) 1 % High 0 [facility] Comment on above: Performed By: #### H EPXA, TROPI, CDP, BMP #### [address] [address] Database Administration Manager: Norman Blake MD Lymphocytes (Bld) [#/Vol] 2.92 10*3/uL Normal 1.10-3.70 [facility] Comment on above: Performed By: #### H EPXA, TROPI, CDP, BMP #### [address] [address] Database Administration Manager: Norman Blake MD Lymphocytes/100 WBC (Bld) 14 % Low 24-43 [facility] Comment on above: Performed By: #### H EPXA, TROPI, CDP, BMP #### [address] [address] Database Administration Manager: Norman Blake MD MCH (RBC) [Entitic mass] 25.4 pg Normal 25.2-33.5 [facility] Comment on above: Performed By: #### H EPXA, TROPI, CDP, BMP #### [address] [address] Database Administration Manager: Norman Blake MD MCHC (RBC) [Mass/Vol] 32.2 g/dL Normal 28.4-34.8 [facility] Comment on above: Performed By: #### H EPXA, TROPI, CDP, BMP #### [address] [address] Database Administration Manager: Norman Blake MD MCV (RBC) [Entitic vol] 78.7 fL Low 82.6-102.9 [facility] Comment on above: Performed By: #### H EPXA, TROPI, CDP, BMP #### [address] [address] Database Administration Manager: Norman Blake MD Monocytes (Bld) [#/Vol] 0.92 10*3/uL Normal 0.10-1.20 [facility] Comment on above: Performed By: #### H EPXA, TROPI, CDP, BMP #### [address] [address] Database Administration Manager: Norman Blake MD Monocytes/100 WBC (Bld) 5 % Normal 3-12 [facility] Comment on above: Performed By: #### H EPXA, TROPI, CDP, BMP #### [address] [address] Database Administration Manager: Norman Blake MD Neutrophil (Seg) 80 % High 36-65 [facility] Comment on above: Performed By: #### H EPXA, TROPI, CDP, BMP #### [address] [address] Database Administration Manager: Norman Blake MD NRBC Automated 0.0 per 100 WBC Normal 0.0 [facility] Comment on above: Performed By: #### H EPXA, TROPI, CDP, BMP #### [address] [address] Database Administration Manager: Norman Blake MD Platelet mean volume (Bld) [Entitic vol] 9.6 fL Normal 8.1-13.5 [facility] Comment on above: Performed By: #### H EPXA, TROPI, CDP, BMP #### [address] [address] Database Administration Manager: Norman Blake MD Platelets (Bld) [#/Vol] 264 10*3/uL Normal 138-453 [facility] Comment on above: Performed By: #### H EPXA, TROPI, CDP, BMP #### [address] [address] Database Administration Manager: Norman Blake MD RBC (Bld) [#/Vol] 4.65 10*6/uL Normal 3.95-5.11 [facility] Comment on above: Performed By: #### H EPXA, TROPI, CDP, BMP #### [email or web address] [address] [place] [address] Database Administration Manager: Norman Blake MD RBC morphology finding Nom (Bld) MICROCYTOSIS PRESENT Normal [facility] Comment on above: Performed By: #### H EPXA, TROPI, CDP, BMP #### [facility] [address] [place] [address] Database Administration Manager: Norman Blake MD WBC (Bld) [#/Vol] 20.4 10*3/uL High 3.5-11.3 [facility] Comment on above: Performed By: #### H EPXA, TROPI, CDP, BMP #### [email or web address] [address] [place] [address] Database Administration Manager: Norman Blake MD CMP Standardon 03-18-2023 Anion Gap see comment Invalid Interpretation Code 5.0-19.0 [facility] Comment on above: Result Comment: Unab le to calculate Performed By: #### 5 [id number], [id number], [id number] ####[facility] (DEFAULT)[address] [place] [address] Breakpoint Chem Normal [facility] Comment on above: Performed By: #### 5 [id number], [id number], [id number] ####[facility] (DEFAULT)[address] [place] [address] eGFR Non AA >60 Invalid Interpretation Code [facility] Comment on above: Performed By: #### 5 [id number], [id number], [id number] ####[facility] (DEFAULT)[address] [place] [address]751 eGFR AA >60 Invalid Interpretation Code [facility] Comment on above: Performed By: #### 5 [id number], [id number], [id number] ####[facility] (DEFAULT)[address] [place] [address] Albumin [Mass/Vol] 3.8 g/dL Normal 3.5-5.0 [facility] Comment on above: Performed By: #### 5 [id number], [id number], [id number] ####[facility] (DEFAULT)[address] [place] [address]752 Albumin/Globulin [Mass ratio] 1.1 {ratio} Low 1.4-2.6 [facility] Comment on above: Performed By: #### 5 [id number], [id number], [id number] ####[facility] (DEFAULT)[address] [place] [address] 59912 Alk Phos 84 IU/L Normal 32-91 [facility] Comment on above: Performed By: #### 5 [id number], [id number], [id number] ####[facility] (DEFAULT)[address] [place] [address]6907 ALT [Catalytic activity/Vol] 20.0 U/L Normal 14.0-54.0 [facility] Comment on above: Performed By: #### 5 [id number], [id number], [id number] ####[facility] (DEFAULT)[address] [place] [address] 05877 AST [Catalytic activity/Vol] 37 U/L Normal 15-41 [facility] Comment on above: Performed By: #### 5 [id number], [id number], [id number] ####[facility] (DEFAULT)[address] [place] [address]273 Bili Total 1.6 mg/dL High 0.3-1.2 [facility] Comment on above: Performed By: #### 5 [id number], [id number], [id number] ####[facility] (DEFAULT)[address] [place] [address] 15759 Calcium [Mass/Vol] 7.2 mg/dL Low 8.9-10.3 [facility] Comment on above: Performed By: #### 5 [id number], [id number], [id number] ####[facility] (DEFAULT)[address] [place] [address] 37137 Chloride [Moles/Vol] 104 mmol/L Normal 101-111 [facility] Comment on above: Performed By: #### 5 [id number], [id number], [id number] ####[facility] (DEFAULT)[address] [place] [address] 71933 Creatinine [Mass/Vol] 0.92 mg/dL Normal 0.60-1.30 [facility] Comment on above: Performed By: #### 5 [id number], [id number], [id number] ####[facility] (DEFAULT)[address] [place] [address] 87299 Globulin (S) [Mass/Vol] 3.4 g/dL Normal 1.5-4.3 [facility] Comment on above: Performed By: #### 5 [id number], [id number], [id number] ####[facility] (DEFAULT)[address] [place] [address] 27134 Glucose [Mass/Vol] 419.0 mg/dL High 74.0-118.0 [facility] Comment on above: Performed By: #### 5 [id number], [id number], [id number] ####[facility] (DEFAULT)[address] [place] [address] 69472 Osmolality 275 mOsm/L Invalid Interpretation Code [facility] Comment on above: Performed By: #### 5 [id number], [id number], [id number] ####[facility] (DEFAULT)[address] [place] [address] 12891 Potassium [Moles/Vol] 4.1 mmol/L Normal 3.6-5.1 [facility] Comment on above: Performed By: #### 5 [id number], [id number], [id number] ####[facility] (DEFAULT)[address] [place] [address] 09830 Protein [Mass/Vol] 7.2 g/dL Normal 6.5-8.1 [facility] Comment on above: Performed By: #### 5 [id number], [id number], [id number] ####[facility] (DEFAULT)[address] [place] [address] 45535 Sodium [Moles/Vol] 127.0 mmol/L Low 136.0-144.0 [facility] Comment on above: Performed By: #### 5 [id number], [id number], [id number] ####[facility] (DEFAULT)[address] [place] [address] 87164 Urea nitrogen [Mass/Vol] 19 mg/dL Normal 8-26 [facility] Comment on above: Performed By: #### 5 [id number], [id number], [id number] ####[facility] (DEFAULT)[address] [place] [address] 10016 Urea nitrogen/Creatinine [Mass ratio] 20.6 mg/mg High 4.6-16.2 [facility] Comment on above: Performed By: #### 5 [id number], [id number], [id number] ####[facility] (DEFAULT)[address] [place] [address] CO2 [Moles/Vol] mmol/L Low 21-32 [facility] Comment on above: Performed By: #### 5 [id number], [id number], [id number] ####[facility] (DEFAULT)[address] [place] [address]268 Breakpoint Chem Normal [facility] Comment on above: Order Comment: Patie nt is a hard stick. 3 Nurses have tried to do an IV. I am waiting to see if they get the IV started. 03/17/2023 22:08:47 EDT Performed By: #### 4 [id number] #### [facility] (DEFAULT) [address] [place] [address] eGFR Non AA >60 Invalid Interpretation Code [facility] Comment on above: Order Comment: Patie nt is a hard stick. 3 Nurses have tried to do an IV. I am waiting to see if they get the IV started. 03/17/2023 22:08:47 EDT Performed By: #### 4 [id number] #### [facility] (DEFAULT) [address] [place] [address] eGFR AA >60 Invalid Interpretation Code [facility] Comment on above: Order Comment: Patie nt is a hard stick. 3 Nurses have tried to do an IV. I am waiting to see if they get the IV started. 03/17/2023 22:08:47 EDT Performed By: #### 4 [id number] #### [facility] (DEFAULT) [address] [place] [address]71 Albumin [Mass/Vol] 4.3 g/dL Normal 3.5-5.0 [facility] Comment on above: Order Comment: Patie nt is a hard stick. 3 Nurses have tried to do an IV. I am waiting to see if they get the IV started. 03/17/2023 22:08:47 EDT Performed By: #### 4 [id number] #### [facility] (DEFAULT) [address] [place] [address]248 Albumin/Globulin [Mass ratio] 1.1 {ratio} Low 1.4-2.6 [facility] Comment on above: Order Comment: Patie nt is a hard stick. 3 Nurses have tried to do an IV. I am waiting to see if they get the IV started. 03/17/2023 22:08:47 EDT Performed By: #### 4 [id number] #### [facility] (DEFAULT) [address] [place] [address]509 Alk Phos 93 IU/L High 32-91 [facility] Comment on above: Order Comment: Patie nt is a hard stick. 3 Nurses have tried to do an IV. I am waiting to see if they get the IV started. 03/17/2023 22:08:47 EDT Performed By: #### 4 [id number] #### [facility] (DEFAULT) [address] [place] [address] 86349 ALT [Catalytic activity/Vol] 21.0 U/L Normal 14.0-54.0 [facility] Comment on above: Order Comment: Patie nt is a hard stick. 3 Nurses have tried to do an IV. I am waiting to see if they get the IV started. 03/17/2023 22:08:47 EDT Performed By: #### 4 [id number] #### [facility] (DEFAULT) [address] [place] [address] 15381 AST [Catalytic activity/Vol] 37 U/L Normal 15-41 [facility] Comment on above: Order Comment: Patie nt is a hard stick. 3 Nurses have tried to do an IV. I am waiting to see if they get the IV started. 03/17/2023 22:08:47 EDT Performed By: #### 4 [id number] #### [facility] (DEFAULT) [address] [place] [address] 70670 Bili Total 1.7 mg/dL High 0.3-1.2 [facility] Comment on above: Order Comment: Patie nt is a hard stick. 3 Nurses have tried to do an IV. I am waiting to see if they get the IV started. 03/17/2023 22:08:47 EDT Performed By: #### 4 [id number] #### [facility] (DEFAULT) [address] [place] [address] 21665 Calcium [Mass/Vol] 7.7 mg/dL Low 8.9-10.3 [facility] Comment on above: Order Comment: Patie nt is a hard stick. 3 Nurses have tried to do an IV. I am waiting to see if they get the IV started. 03/17/2023 22:08:47 EDT Performed By: #### 4 [id number] #### [facility] (DEFAULT) [address] [place] [address] 33656 Chloride [Moles/Vol] 99 mmol/L Low 101-111 [facility] Comment on above: Order Comment: Patie nt is a hard stick. 3 Nurses have tried to do an IV. I am waiting to see if they get the IV started. 03/17/2023 22:08:47 EDT Performed By: #### 4 [id number] #### [facility] (DEFAULT) [address] [place] [address] 84511 Creatinine [Mass/Vol] 1.01 mg/dL Normal 0.60-1.30 [facility] Comment on above: Order Comment: Patie nt is a hard stick. 3 Nurses have tried to do an IV. I am waiting to see if they get the IV started. 03/17/2023 22:08:47 EDT Performed By: #### 4 [id number] #### [facility] (DEFAULT) [address] [place] [address] 77449 Globulin (S) [Mass/Vol] 3.7 g/dL Normal 1.5-4.3 [facility] Comment on above: Order Comment: Patie nt is a hard stick. 3 Nurses have tried to do an IV. I am waiting to see if they get the IV started. 03/17/2023 22:08:47 EDT Performed By: #### 4 [id number] #### [facility] (DEFAULT) [address] [place] [address] 48302 Glucose [Mass/Vol] 455.0 mg/dL High 74.0-118.0 [facility] Comment on above: Order Comment: Patie nt is a hard stick. 3 Nurses have tried to do an IV. I am waiting to see if they get the IV started. 03/17/2023 22:08:47 EDT Performed By: #### 4 [id number] #### [facility] (DEFAULT) [address] [place] [address] 04120 Osmolality 272 mOsm/L Invalid Interpretation Code [facility] Comment on above: Order Comment: Patie nt is a hard stick. 3 Nurses have tried to do an IV. I am waiting to see if they get the IV started. 03/17/2023 22:08:47 EDT Performed By: #### 4 [id number] #### [facility] (DEFAULT) [address] [place] [address] 65253 Protein [Mass/Vol] 8.0 g/dL Normal 6.5-8.1 [facility] Comment on above: Order Comment: Patie nt is a hard stick. 3 Nurses have tried to do an IV. I am waiting to see if they get the IV started. 03/17/2023 22:08:47 EDT Performed By: #### 4 [id number] #### [facility] (DEFAULT) [address] [place] [address] 43545 Sodium [Moles/Vol] 125.0 mmol/L Low 136.0-144.0 [facility] Comment on above: Order Comment: Patie nt is a hard stick. 3 Nurses have tried to do an IV. I am waiting to see if they get the IV started. 03/17/2023 22:08:47 EDT Performed By: #### 4 [id number] #### [facility] (DEFAULT) [address] [place] [address] 16243 Urea nitrogen [Mass/Vol] 16 mg/dL Normal 8-26 [facility] Comment on above: Order Comment: Patie nt is a hard stick. 3 Nurses have tried to do an IV. I am waiting to see if they get the IV started. 03/17/2023 22:08:47 EDT Performed By: #### 4 [id number] #### [facility] (DEFAULT) [address] [place] [address] 56076 Urea nitrogen/Creatinine [Mass ratio] 15.8 mg/mg Normal 4.6-16.2 [facility] Comment on above: Order Comment: Patie nt is a hard stick. 3 Nurses have tried to do an IV. I am waiting to see if they get the IV started. 03/17/2023 22:08:47 EDT Performed By: #### 4 [id number] #### [facility] (DEFAULT) [address] [place] [address] 41547 Potassium [Moles/Vol] 4.6 mmol/L Normal 3.6-5.1 [facility] Comment on above: Order Comment: Patie nt is a hard stick. 3 Nurses have tried to do an IV. I am waiting to see if they get the IV started. 03/17/2023 22:08:47 EDT Result Comment: Delt a check reviewed with RN Performed By: #### 4 [id number] #### [facility] (DEFAULT) [address] [place] [address] 92192 CO2 [Moles/Vol] mmol/L Low 21-32 [facility] Comment on above: Order Comment: Patie nt is a hard stick. 3 Nurses have tried to do an IV. I am waiting to see if they get the IV started. 03/17/2023 22:08:47 EDT Result Comment: Resu lts Verified by Repeat Analysis Performed By: #### 4 [id number] #### [facility] (DEFAULT) [address] [place] [address] CHEST PULMONARY EMBOLISM W CONTRASTon 09-19-2023 [...] MD 03/18/23 Edited Result - FINAL Normal [facility] Calcium, Ionicon 03-18-2023 Calcium [Moles/Vol] 1.18 mmol/L Normal 1.13-1.33 [facility] Comment on above: Performed By: #### Jam RODAS IOCAL #### [email or web address] [address] [place], [place] [id number] Database Administration Manager: Norman Blake MD D-Dimer Teston 03-18-2023 D-Dimer Test 0.60 ug/mL FEU High 0.00-0.57 [facility] Comment on above: Result Comment: When combined [...] Performed By: #### Jam RODAS IOCAL #### [email or web address] [address] [place], [place] [id number] Database Administration Manager: Norman Blake MD ED Clinical Summaryon 2022 ED Clinical Summary [facility] Emergency Department [address] [place] [address] 43452 ED Clinical Summary PERSON INFORMATION Name: TASHA, ALLEX N Age: 27 Years Sex: FEMALE : 1995 MRN: Acct#: Visit Reason: Chest pain; SOB, CHEST PAIN Arrival: 03/17/2023 20:58:55 Discharge: 03/18/2023 03:03:00 LOS: 000 06:05 Check In: 03/17/2023 20:58:55 Checkout:03/18/2023 03:03:00 Address: [address] [place] [address] PCP: ARCADIO IGLESIAS PROVIDER INFORMATION Provider Role [...] 0 Refill(s) clif (more content not included)... [facility] ED Note - Otheron 03-18-2023 ED Note - Other paging Network Applications Specialist through [facility] for transfer [Electronically Signed on: 03/18/2023 00:54 EDT] Usha Angel [Verified on: 03/18/2023 00:54 EDT] Usha Angel Network Applications Specialist called back from [facility], Dr. Valdes retuned call, on phone with Dr. Johnson-[phone] [Electronically Signed on: 03/18/2023 01:00 EDT] Usha Angel [facility] ED Patient Education Noteon 03-18-2023 ED Patient Education Note Education Materials [facility] ED Patient Summaryon 023 ED Patient Summary [facility] - Emergency Department [address] [place] [address] PATIENT DISCHARGE INSTRUCTIONS Patient Information Name: DOUGLAS CORDOVA Age: 27 Years Date [facility] : 1995 [id number] Reason For Visit: Chest pain; SOB, CHEST PAIN Arrival Time: 03/17/2023 20:58:55 Primary Care Physician: ARCADIO IGLESIAS Attending Physician: Linn Johnson DO Comment: Visit Diagnosis: Diagnoses This Visit Anxiety (F41.9) Chest pain ([id number]) COVID-19 (U07.1) DKA (diabetic ketoacidosis) (E11.10) The Pharmacy at [facility] is open Friday through Friday from 9A [...] alcohol and/or drug addiction problems; contact the [facility] 20/01 Crisis Hotline -text 4hope to [...] and treatment you received today in the [facility] Emergency Department were for an urgent problem and are not intended as complete care. It is important for you to follow up with a doctor, nurse practitioner, or physician?s car rental sales assistant for ongoing care. If your symptoms become [...] so we can reach you if necessary. [facility] Emergency Department has provided you with a complete list of medications post discharge. Please inform your primary clinician/provider of your visit and for further instruction [...] a day. Durable Medical Equipment for Prescription ([employer] DASH PODS (GEN 4) 5PK) change q [...] better. Usual (more content not included)... Normal [facility] Ethanol.on 03-18-2023 Ethanol Level <5.0 Normal 0.0-5.0 [facility] Comment on above: Order Comment: [...] 03/17/2023 22:18:48 EDT Performed By: #### 4 [id number] #### [facility] (DEFAULT) [address] [place] [address] Hemoglobin A1Con 03-18-2023 Glucose [Mass/Vol] 369 mg/dL Normal [facility] Comment on above: Result Comment: The ADA and AACC recommend providing the estimated average glucose result to permit better patient understanding of their HBA1c result. Performed By: #### H EPXA TROPI, CDP, BMP #### [email or web address] [address] [place] [address] [phone] Database Administration Manager: Norman Blake MD HbA1c (Bld) [Mass fraction] 14.5 % High 4.0-6.0 [facility] Comment on above: Performed By: #### H EPXA TROPI CDP, BMP #### [email or web address] [address] [place] [address] [phone] Database Administration Manager: Norman Blake MD Heparin Anti-Xaon 03-18-2023 Heparin Anti-Xa <0.10 Normal [facility] Comment on above: Performed By: #### Jam RODAS, IOCAL #### [facility] [address] [place] [address] Database Administration Manager: Norman Blake MD Heparin Anti-Xa <0.10 Normal [facility] Comment on above: Performed By: #### R EJEC, HEPXA #### [facility] [address] [place] [address] Database Administration Manager: Norman Blake MD Heparin Anti-Xa <0.10 Normal [facility] Comment on above: Performed By: #### R EJEC, HEPXA #### [facility] [address] [place] [address] 83275 Database Administration Manager: Norman Blake MD Ketone Serumon 03-18-2023 Ketone Serum Small Normal Negative [facility] Comment on above: Performed By: #### 6 [id number] ####[facility] (DEFAULT)[address] [place] [address] MRSA, DNA, Nasalon 3 Specimen Description .NASAL SWAB Normal [facility] Comment on above: Performed By: #### Jam RODAS IOCAL #### [facility] [address] [place] [address] 37320 Database Administration Manager: Norman Blake MD Magnesiumon 03-18-2023 Magnesium [Mass/Vol] 1.9 mg/dL Normal 1.6-2.6 [facility] Comment on above: Performed By: #### Jam RODAS, IOCAL #### [facility] [address] [place] [address] 84349 Database Administration Manager: Norman Blake MD Magnesium [Mass/Vol] 2.2 mg/dL Normal 1.6-2.6 [facility] Comment on above: Performed By: #### R EJEC, HEPXA #### [facility] [address] [place] [address] Database Administration Manager: Norman Blake MD Magnesium [Mass/Vol] 2.2 mg/dL Normal 1.6-2.6 [facility] Comment on above: Performed By: #### R YURI, HEPXA #### [facility] [address] [place] [address] [phone] Database Administration Manager: Norman Blake MD Magnesium [Mass/Vol] 1.6 mg/dL Normal 1.6-2.6 [facility] Comment on above: Performed By: #### D CLARK IOCAL #### [facility] [address] [place] [address] [phone] Database Administration Manager: Norman Blake MD Myoglobinon 03-18-2023 Myoglobin [Mass/Vol] 288.6 ng/mL High 14.3-65.8 [facility] Comment on above: Performed By: #### 5 [id number], [id number], [id number] ####[facility] (DEFAULT)[address] [place] [address] PTon 03-18-2023 INR Coag (PPP) [Relative time] 1.1 {INR} Normal [facility] Comment on above: Result Comment: Therapeutic Range: Moderate Anticoagulant Intensity: INR = 2.0-3.0 High Anticoagulant Intensity: INR = 2.5-3.5 Performed By: #### Jose WELCH, HEPXA #### [facility] [employer] [address] [place] [address] [phone] Database Administration Manager: Norman Blake MD PT Coag (PPP) [Time] 14.1 s Normal 11.7-14.9 [facility] Comment on above: Performed By: #### R EJANNA, HEPXA #### [facility] [employer] [address] [place] [address] [phone] Database Administration Manager: Norman Blake MD Phosphorus, Inorg.on 023 Phosphorus, Inorg. 0.4 mg/dL Critically low 2.6-4.5 [facility] Comment on above: Performed By: #### D CLARK, IOCAL #### [email or web address] [address] [place] [address] Database Administration Manager: oNrman Blake MD Phosphorus, Inorg. 0.4 mg/dL Critically low 2.6-4.5 [facility] Comment on above: Result Comment: TEST CONFIRMED Performed By: #### R EJEC, HEPXA #### [email or web address] [address] [place] [address] Database Administration Manager: Norman Blake MD Phosphorus, Inorg. 0.9 mg/dL Critically low 2.6-4.5 [facility] Comment on above: Performed By: #### D CLARK, IOCAL #### [email or web address] [address] [place] [address] Database Administration Manager: Norman Blake MD Phosphorus, Inorg. 1.2 mg/dL Low 2.6-4.5 [facility] Comment on above: Performed By: #### H EPXA, TROPI, CDP, BMP #### [email or web address] [address] [place] [address] Database Administration Manager: Norman Blake MD Test Serum 1 Preg Serum Internal Control OK [facility] Comment on above: Order Comment: Patie nt is a hard stick. 3 Nurses have tried to do an IV. I am waiting to see if they get the IV started. 03/17/2023 22:08:47 EDT Performed By: #### 7 [id number], [id number], [id number], [id number], [id number], [id number] ####[facility] (DEFAULT)[address] [place] [address] [address] Qual Negative [facility] Comment on above: Order Comment: Patie nt is a hard stick. 3 Nurses have tried to do an IV. I am waiting to see if they get the IV started. 03/17/2023 22:08:47 EDT Performed By: #### 7 [id number], [id number], [id number], [id number], [id number], [id number] ####[facility] (DEFAULT)[address] [place] [address] 15294 Salicylateon 03-18-2023 Salicylate Lvl <4.0 Normal 0.0-30.0 [facility] Comment on above: Performed By: #### 4 [id number] #### [facility] (DEFAULT) [address] [place] [address] 39001 Specimen Rejectionon 023 Reason for rejection Unable to perform testing: Specimen contaminated. Normal [facility] Comment on above: Performed By: #### R EJEC, HEPXA #### [facility] [employer] [address] [place] [address] [phone] Database Administration Manager: Norman Blake MD Source of sample .BLOOD Normal [facility] Comment on above: Performed By: #### R EJEC, HEPXA #### [facility] [address] [place] [address] [id number] Database Administration Manager: Norman Blake MD Test ordered TROPI MG AUDRA BMP Normal [facility] Comment on above: Performed By: #### R EJEC, HEPXA #### [address] [address] Database Administration Manager: Norman Blake MD TnI HSon 03-18-2023 Troponin I High Sensitivity 5176.9 pg/mL Critically abnormal <=15.0 [facility] Comment on above: Result Comment: Crit ical result TNIHS 5176.9 pg/mL called to and read back by Nora Bliss RN at 18-Mar-2023 01:30 by CAMRON_[email or web address]. Performed By: #### 5 [id number], [id number], [id number] ####[facility] (DEFAULT)[address] [place] [address] 85569 Troponin I High Sensitivity 3869.7 pg/mL Critically abnormal <=15.0 [facility] Comment on above: Order Comment: [...] 23:51 by Isaiah. Performed By: #### 4 [id number] #### [facility] (DEFAULT) [address] [place] [address] Transfer Noteon 03-18-2023 Transfer Note Rm assignment [facility] 3008 bed 1 report # [phone] [Electronically Signed on: 03/18/2023 02:25 EDT] Usha Angel [Verified on: 03/18/2023 02:25 EDT] StanleyUsha berry [facility] Transfer Note Complete ED chart sent with patient. CD and med list sent w. patient to Hospital, [facility] [Electronically Signed on: 03/18/2023 01:47 EDT] Usha Angel [Verified on: 03/18/2023 01:47 EDT] Usha Angel [facility] Transfer Note [id number] [facility] [id number] [facility] to [facility], Spoke to Diane and she stated that they are unable to take patient do to her being in [place]. Will try other transport. [Electronically Signed on: 03/18/2023 01:11 EDT] Karena Angelah [Verified on: 03/18/2023 01:11 EDT] Stanley Usha Called and spoke to [facility] @ 0119 [Electronically Signed on: 03/18/2023 01:19 EDT] Stanley [facility] Transfer Note Contacted transfer line through [facility], [facility] [Electronically Signed on: 03/18/2023 00:21 EDT] Usha Angel [Verified on: 03/18/2023 00:21 EDT] Usha Angel Network Applications Specialist called back from [facility], on the phone with Dr. Johnson [phone] [Electronically Signed on: 03/18/2023 00:32 EDT] Stanley [facility] Triage Panel 12on 03-18-2023 Triage Internal Control Pass [facility] Comment on above: Performed By: #### 6 [id number], [id number], [id number], [id number] ####[facility] (DEFAULT)[address] [place] [address] 82788 U Amph Scr Negative Normal [facility] Comment on above: Performed By: #### 6 [id number], [id number], [id number], [id number] ####[facility] (DEFAULT)[address] [place] [address] 10183 U Landy Scr Negative Normal [facility] Comment on above: Performed By: #### 6 682854, [id number], [id number], [id number] ####[facility] (DEFAULT)[address] [place] [address] 76314 U Benzodia Scr Negative Normal [facility] Comment on above: Performed By: #### 6 910755, [id number], [id number], [id number] ####[facility] (DEFAULT)[address] [place] [address] 27789 U Cannab Scrn Negative [facility] Comment on above: Performed By: #### 6 180757, [id number], [id number], [id number] ####[facility] (DEFAULT)[address] [place] [address] 27716 U Cocaine Scr Negative [facility] Comment on above: Performed By: #### 6 682413, [id number], [id number], [id number] ####[facility] (DEFAULT)[address] [place] [address] 09907 U Methadone Scr Negative Normal [facility] Comment on above: Performed By: #### 6 817427, [id number], [id number], [id number] ####[facility] (DEFAULT)[address] [place] [address] 63688 U Methamp Scrn Negative [facility] Comment on above: Performed By: #### 6 951209, [id number], [id number], [id number] ####[facility] (DEFAULT)[address] [place] [address] 16139 U Opiate Scr Negative Normal [facility] Comment on above: Performed By: #### 6 495481, [id number], [id number], [id number] ####[facility] (DEFAULT)[address] [place] [address] U Oxycod Scr Negative Normal [facility] Comment on above: Performed By: #### 6 929322, [id number], [id number], [id number] ####[facility] (DEFAULT)[address] [place] [address] U Phencyclidine Scr Negative Normal [facility] Comment on above: Performed By: #### 6 964957, [id number], [id number], [id number] ####[facility] (DEFAULT)[address] [place] [address] 98016 U Propoxyphene Scr Negative Normal [facility] Comment on above: Performed By: #### 6 428007, [id number], [id number], [id number] ####[facility] (DEFAULT)[address] [place] [address] 80223 U Tricyclic Antidepress Scr Negative Normal [facility] Comment on above: Result Comment: Resu lts [...] PPX Propoxyphene (Norpropoxyphene): 300 ng/mL THC Cannabinoids (36-pky-7-carboxy- -THC): 50 ng/mL TCA Tricyclic-Antidepressants (Desipramine): 300 ng/mL Performed By: #### 6 343027, [id number], [id number], [id number] ####[facility] (DEFAULT)[address] [place] [address] Urine Source Voided Normal [facility] Comment on above: Performed By: #### 6 011843, [id number], [id number], [id number] ####[facility] (DEFAULT)[address] [place] [address] Troponinon 03-18-2023 Troponin, High Sens 851 ng/L Critically high 0-14 [facility] Comment on above: Result Comment: High Sensitivity Troponin values cannot be compared with other Troponin methodologies. Previous Alert Value Reported Performed By: #### D CLARK, IOCAL #### [facility] [address] [place] [address] Database Administration Manager: Norman Blake MD Troponin, High Sens 860 ng/L Critically high 0-14 [facility] Comment on above: Result Comment: High Sensitivity Troponin values cannot be compared with other Troponin methodologies. Previous Alert Value Reported Performed By: #### R EJEC, HEPXA #### [email or web address] [address] [place] [address] Database Administration Manager: Norman Blake MD Troponin, High Sens 709 ng/L Critically high 0-14 [facility] Comment on above: Result Comment: High Sensitivity Troponin values cannot be compared with other Troponin methodologies. Previous Alert Value Reported Performed By: #### H EPXA, TROPI, CDP, BMP #### [facility] [place] [address] Database Administration Manager: Norman Blake MD Troponin, High Sens 700 ng/L Critically high 0-14 [facility] Comment on above: Result Comment: High Sensitivity Troponin values cannot be compared with other Troponin methodologies. Previous Alert Value Reported Performed By: #### D CLARK, IOCAL #### [facility] [address] [place] [address] Database Administration Manager: Norman Blake MD Troponin, High Sens 638 ng/L Critically high 0-14 [facility] Comment on above: Result Comment: High Sensitivity Troponin values cannot be compared with other Troponin methodologies. Performed By: #### H EPXA, TROPI, CDP, BMP #### [email or web address] [address] [place] [address] Database Administration Manager: Norman Blake MD UA [id number] 03-18-2023 [address]A Amorph. 1+ [facility] Comment on above: Order Comment: Urina lysis Microscopic order added on by [employer] Rules system. Performed By: #### 6 939098, [id number], [id number], [id number] ####[facility] (DEFAULT)[address] [place] [address] [address] Bacteria 4+ [facility] Comment on above: Order Comment: Urina lysis Microscopic order added on by [employer] system. Performed By: #### 6 841590, [id number], [id number], [id number] ####[facility] (DEFAULT)[address] [place] [address] UA RBC 5-10 [facility] Comment on above: Order Comment: Urina lysis Microscopic order added on by [employer] system. Performed By: #### 6 [id number], [id number], [id number], [id number] ####[facility] (DEFAULT)[address] [place] [address] [facility] Comment on above: Order Comment: Urina lysis Microscopic order added on by [employer] system. Performed By: #### 6 [id number], [id number], [id number], [id number] ####[facility] (DEFAULT)[address] [place] [address] [address] WBC 0-2 [facility] Comment on above: Order Comment: Urina lysis Microscopic order added on by [employer] system. Performed By: #### 6 [id number], [id number], [id number], [id number] ####[facility] (DEFAULT)[address] [place] [address] UA w Culture if Ind Standard on 03-18-[address] [facility] Comment on above: Performed By: #### 6 [id number], [id number], [id number], [id number] ####[facility] (DEFAULT)[address] [place] [address] Color (U) Yellow [facility] Comment on above: Performed By: #### 6 [id number], [id number], [id number], [id number] ####[facility] (DEFAULT)[address] [place] [address] Culture? Indicated Invalid Interpretation Code [facility] Comment on above: Result Comment: Resu lt created by rule GL_MAGR_ADD_UA_CULT Performed By: #### 6 [id number], [id number], [id number], [id number] ####[facility] (DEFAULT)[address] [place] [address] Glucose (U) [Mass/Vol] 500 mg/dL Normal [facility] Comment on above: Performed By: #### 6 [id number], [id number], [id number], [id number] ####[facility] (DEFAULT)[address] [place] [address] Ketones Ql (U) >=80 [facility] Comment on above: Performed By: #### 6 [id number], [id number], [id number], [id number] ####[facility] (DEFAULT)[address] [place] [address] Micro? Indicated Invalid Interpretation Code [facility] Comment on above: Result Comment: Resu lt created by rule GL_MAGR_ADD_UA_MICRO Result created by rule GL_MAGR_ADD_UA_MICRO Performed By: #### 6 [id number], [id number], [id number], [id number] ####[facility] (DEFAULT)[address] [place] [address] [facility] Comment on above: Performed By: #### 6 [id number], [id number], [id number], [id number] ####[facility] (DEFAULT)[address] [place] [address] 66202 UA Blood LARGE Abnormal NEGATIVE [facility] Comment on above: Performed By: #### 6 [id number], [id number], [id number], [id number] ####[facility] (DEFAULT)[address] [place] [address] 35673 UA Clarity SL CLOUDY Abnormal CLEAR [facility] Comment on above: Performed By: #### 6 [id number], [id number], [id number], [id number] ####[facility] (DEFAULT)[address] [place] [address] UA Leuk Est Negative Normal NEGATIVE [facility] Comment on above: Performed By: #### 6 [id number], [id number], [id number], [id number] ####[facility] (DEFAULT)[address] [place] [address] 64192 UA Nitrite Negative Normal NEGATIVE [facility] Comment on above: Performed By: #### 6 [id number], [id number], [id number], [id number] ####[facility] (DEFAULT)[address] [place] [address] 60712 UA pH 6.0 Normal 5-8 [facility] Comment on above: Performed By: #### 6 [id number], [id number], [id number], [id number] ####[facility] (DEFAULT)[address] [place] [address] 46014 UA Protein 30 Abnormal NEGATIVE [facility] Comment on above: Performed By: #### 6 [id number], [id number], [id number], [id number] ####[facility] (DEFAULT)[address] [place] [address] 13081 UA Spec Grav >=1.030 Normal 1.001-1.035 [facility] Comment on above: Performed By: #### 6 812835, [id number], [id number], [id number] ####[facility] (DEFAULT)[address] [place] [address] 96032 UA Urobilinogen 0.2 mg/dL Normal 0.2-1.0 [facility] Comment on above: Performed By: #### 6 442235, [id number], [id number], [id number] ####[facility] (DEFAULT)[address] [place] [address] Urine Source Voided Normal [facility] Comment on above: Performed By: #### 6 [id number], [id number], [id number], [id number] ####[facility] (DEFAULT)[address] [place] [address] UA w/Reflex Cultureon 2022 Bilirubin, SemiQt,Ur Negative Normal NEG [facility] Comment on above: Performed By: #### U AX #### [address] [address] Database Administration Manager: Norman Blake MD Blood, Urine LARGE Abnormal NEG [facility] Comment on above: Performed By: #### U AX #### [address] [address] Database Administration Manager: Norman Blake MD Clarity (U) Cloudy Abnormal CLEAR [facility] Comment on above: Performed By: #### U AX #### [address] [address] Database Administration Manager: Norman Blake MD Color (U) Yellow Normal YEL [facility] Comment on above: Performed By: #### U AX #### [address] [address] Database Administration Manager: Norman Blake MD Glucose Ql (U) 3+ mg/dL Abnormal NEG [facility] Comment on above: Performed By: #### U AX #### [address] [address] Database Administration Manager: Norman Blake MD Ketones Ql (U) LARGE Abnormal NEG [facility] Comment on above: Performed By: #### U AX #### [address] [address] Database Administration Manager: Norman Blake MD Leukocyte esterase Test strip Ql (U) Negative Normal NEG [facility] Comment on above: Performed By: #### U AX #### [address] [address] Database Administration Manager: Norman Blake MD Nitrite,Ur Negative Normal NEG [facility] Comment on above: Performed By: #### U AX #### [address] [address] Database Administration Manager: Norman Blake MD PH,Ur 5.5 Normal 5.0-8.0 [facility] Comment on above: Performed By: #### U AX #### [address] [address] Database Administration Manager: Norman Blake MD Protein Ql (U) 2+ mg/dL Abnormal NEG [facility] Comment on above: Performed By: #### U AX #### [address] [address] Database Administration Manager: Norman Blake MD Spec. Clements,Ur 1.028 Normal 1.005-1.030 [facility] Comment on above: Performed By: #### U AX #### [address] [address] Database Administration Manager: Norman Blake MD Urobilinogen,Ur Normal Normal 0.0-1.0 [facility] Comment on above: Performed By: #### U AX #### [address] [address] Database Administration Manager: Norman Blake MD Venous Blood Gaseson 023 Body Temp. 37.0 Normal [facility] Comment on above: Performed By: #### R EJEC, HEPXA #### [address] [address] Database Administration Manager: Norman Blake MD Carboxy Hgb 0.7 % Normal 0-5 [facility] Comment on above: Result Comment: Reference Range: Non-Smokers 0-2% Average Smoker 2-4% Heavy Smoker <10% Performed By: #### R EJEC, HEPXA #### [address] [address] Database Administration Manager: Norman Blake MD FIO2 INFORMATION NOT PROVIDED Normal [facility] Comment on above: Performed By: #### R EJEC, HEPXA #### [address] [address] Database Administration Manager: Norman Blake MD HCO3 (Bld) [Moles/Vol] 17.2 mmol/L Low 24-30 M [facility] Comment on above: Performed By: #### R EJEC, HEPXA #### [address] [address] Database Administration Manager: Norman Blake MD Negative Base Excess 7.0 mmol/L High 0.0-2.0 [facility] Comment on above: Performed By: #### R EJEC, HEPXA #### [address] [address] Database Administration Manager: Norman Blake MD Oxygen saturation in Blood 90.7 % High 60.0-85.0 [facility] Comment on above: Performed By: #### R EJEC, HEPXA #### [address] [address] Database Administration Manager: Norman Blake MD pCO2 32.2 mm Hg Low 39-55 [facility] Comment on above: Performed By: #### R EJEC, HEPXA #### [address] [address] Database Administration Manager: Norman Blake MD pH (Bld) 7.348 [pH] Normal 7.320-7.420 [facility] Comment on above: Performed By: #### R EJEC, HEPXA #### [facility] [address] [place] [address] Database Administration Manager: Norman Blake MD pO2 55.1 mm Hg High 30-50 [facility] Comment on above: Performed By: #### R EJEC, HEPXA #### [facility] [address] [place] [address] Database Administration Manager: Norman Blake MD XR CHEST PORTABLEon 03-18-20 [...] Prieto Engel MD 03/18/23 Final result Normal [facility] XR Chest 1 View Frontalon XR [...] Wang DO 03/18/23 8:44 am Technologist: MADHAVI [facility] Consent Formson 03-17-2023 Consent Forms [id number] #1.00OTGTIFF [facility] ED Note - Physicianon 2022 ED Note - Physician Patient: [facility]: [id number] Age: 27 years Sex: FEMALE : 1995 [...] Social History Medical history: Resolved Diabetes mellitus ([id number]): Resolved. . Surgical history: No active procedure [...] Lab Collect T (more content not included)... [facility] Telemetry Stripson 3 Telemetry Strips [id number] #1.00OTGTIFF [facility] .Auto Diff 1on 03-16-2023 Auto Nolan % 3 % Normal 12 [facility] Comment on above: Performed By: #### 4 [id number] #### [facility] (DEFAULT) [address] [place] [address] Baso Abs# 0.1 x10 Normal 0.0-0.2 [facility] Comment on above: Performed By: #### 4 [id number] #### [facility] (DEFAULT) [address] [place] [address] Basophils/100 WBC (Bld) 1.3 % Normal 0.2-2.0 [facility] Comment on above: Performed By: #### 4 [id number] #### [facility] (DEFAULT) [address] [place] [address] Eos Abs# 0.0 x10 Normal 0.0-0.4 [facility] Comment on above: Performed By: #### 4 [id number] #### [facility] (DEFAULT) [address] [place] [address] Eosinophils/100 WBC (Bld) 0.0 % Low 0.9-4.0 [facility] Comment on above: Performed By: #### 4 [id number] #### [facility] (DEFAULT) [address] [place] [address] Lymph Abs# 0.9 x10 Low 1.3-2.9 [facility] Comment on above: Performed By: #### 4 [id number] #### [facility] (DEFAULT) [address] [place] [address] Lymphocytes/100 WBC (Bld) 11 % Low 14-48 [facility] Comment on above: Performed By: #### 4 [id number] #### [facility] (DEFAULT) [address] [place] [address] Nolan Abs# 0.2 x10 Normal 0.0-0.8 [facility] Comment on above: Performed By: #### 4 [id number] #### [facility] (DEFAULT) [address] [place] [address] Neut Abs# 6.6 x10 Normal 1.5-9.2 [facility] Comment on above: Performed By: #### 4 [id number] #### [facility] (DEFAULT) [address] [place] [address] Neutrophils/100 WBC (Bld) 85 % Normal 44-88 [facility] Comment on above: Performed By: #### 4 [id number] #### [facility] (DEFAULT) [address] [place] [address] .QC SARS-CoV-2 (COVID-19)/Fl u/RSV (GeneXpert)on 03-16-2023 Internal Control Pass Normal [facility] Comment on above: Order Comment: Order ed by Discern. [[email or web address]] Performed By: #### 7 [id number], [id number] #### [facility] (DEFAULT) [address] [place] [address] Acetone Qlon 03-16-2023 Acetone SMALL Normal [facility] Comment on above: Performed By: #### 6 [id number] ####[facility] (DEFAULT)[address] [place] [address] Arterial Blood Gas Standardo n 03-16-2023 Base Excess Art -21.7 mmol/L Low -3.3-2.3 [facility] Comment on above: Performed By: #### 4 [id number] #### [facility] (DEFAULT) [address] [place] [address] Breakpoint Hemo Normal [facility] Comment on above: Performed By: #### 4 [id number] #### [facility] (DEFAULT) [address] [place] [address]779 Device Room Air Normal [facility] Comment on above: Performed By: #### 4 [id number] #### [facility] (DEFAULT) [address] [place] [address]208 Fio2 Art 21.0 % Normal 21.0-100.0 [facility] Comment on above: Performed By: #### 4 [id number] #### [facility] (DEFAULT) [address] [place] [address] HCO3 (Bld) [Moles/Vol] 6.0 mmol/L Low 22.0-27.0 [facility] Comment on above: Performed By: #### 4 [id number] #### [facility] (DEFAULT) [address] [place] [address] Oxygen saturation in Blood 97.9 % Normal 95.0-100.0 [facility] Comment on above: Performed By: #### 4 [id number] #### [facility] (DEFAULT) [address] [place] [address]104 pCO2 Art 19 mmHg Critically abnormal 34-44 [facility] Comment on above: Result Comment: Resu lts handed to Dr Gonzalez by on 03/16/23 @ 1045 Performed By: #### 4 [id number] #### [facility] (DEFAULT) [address] [place] [address] 42657 pH Art 7.11 Critically abnormal 7.37-7.44 [facility] Comment on above: Result Comment: Resu lts handed to Dr Gonzalez by RUTH on 03/16/23 @ 1045, RBD Performed By: #### 4 [id number] #### [facility] (DEFAULT) [address] [place] [address] pO2 Art 208 mmHg High 75-100 [facility] Comment on above: Performed By: #### 4 [id number] #### [facility] (DEFAULT) [address] [place] [address] Puncture Site Right Brachial Normal [facility] Comment on above: Performed By: #### 4 [id number] #### [facility] (DEFAULT) [address] [place] [address] Rate: 18 Invalid Interpretation Code [facility] Comment on above: Performed By: #### 4 [id number] #### [facility] (DEFAULT) [address] [place] [address]356 BMP Standardon 03-16-2023 eGFR Non AA >60 Invalid Interpretation Code [facility] Comment on above: Order Comment: While on Insulin Drip Performed By: #### 4 [id number] #### [facility] (DEFAULT) [address] [place] [address] 66717 eGFR AA >60 Invalid Interpretation Code [facility] Comment on above: Order Comment: While on Insulin Drip Performed By: #### 4 [id number] #### [facility] (DEFAULT) [address] [place] [address] Anion gap [Moles/Vol] 14.8 mmol/L Normal 5.0-19.0 [facility] Comment on above: Order Comment: While on Insulin Drip Performed By: #### 4 [id number] #### [facility] (DEFAULT) [address] [place] [address] Calcium [Mass/Vol] 7.7 mg/dL Low 8.9-10.3 [facility] Comment on above: Order Comment: While on Insulin Drip Performed By: #### 4 [id number] #### [facility] (DEFAULT) [address] [place] [address] 57455 Chloride [Moles/Vol] 108 mmol/L Normal 101-111 [facility] Comment on above: Order Comment: While on Insulin Drip Performed By: #### 4 [id number] #### [facility] (DEFAULT) [address] [place] [address] 26383 CO2 [Moles/Vol] 14 mmol/L Low 21-32 [facility] Comment on above: Order Comment: While on Insulin Drip Performed By: #### 4 [id number] #### [facility] (DEFAULT) [address] [place] [address] 78077 Creatinine [Mass/Vol] 0.69 mg/dL Normal 0.60-1.30 [facility] Comment on above: Order Comment: While on Insulin Drip Performed By: #### 4 [id number] #### [facility] (DEFAULT) [address] [place] [address]152 Glucose [Mass/Vol] 295.0 mg/dL High 74.0-118.0 [facility] Comment on above: Order Comment: While on Insulin Drip Performed By: #### 4 [id number] #### [facility] (DEFAULT) [address] [place] [address] Osmolality 278 mOsm/L Invalid Interpretation Code [facility] Comment on above: Order Comment: While on Insulin Drip Performed By: #### 4 [id number] #### [facility] (DEFAULT) [address] [place] [address] 14697 Potassium [Moles/Vol] 3.8 mmol/L Normal 3.6-5.1 [facility] Comment on above: Order Comment: While on Insulin Drip Result Comment: Pota ssium Therapy Performed By: #### 4 [id number] #### [facility] (DEFAULT) [address] [place] [address]694 Sodium [Moles/Vol] 133.0 mmol/L Low 136.0-144.0 [facility] Comment on above: Order Comment: While on Insulin Drip Performed By: #### 4 [id number] #### [facility] (DEFAULT) [address] [place] [address] 45386 Urea nitrogen [Mass/Vol] 16 mg/dL Normal 8-26 [facility] Comment on above: Order Comment: While on Insulin Drip Performed By: #### 4 [id number] #### [facility] (DEFAULT) [address] [place] [address] Urea nitrogen/Creatinine [Mass ratio] 23.1 mg/mg High 4.6-16.2 [facility] Comment on above: Order Comment: While on Insulin Drip Performed By: #### 4 [id number] #### [facility] (DEFAULT) [address] [place] [address] CBC w/ Auto Diffon 3 Erythrocyte distribution width (RBC) [Ratio] 15.4 % High 11.5-15.0 [facility] Comment on above: Performed By: #### 4 [id number] #### [facility] (DEFAULT) [address] [place] [address] Hematocrit (Bld) [Volume fraction] 41.6 % High 33.7-40.4 [facility] Comment on above: Performed By: #### 4 [id number] #### [facility] (DEFAULT) [address] [place] [address] Hemoglobin (Bld) [Mass/Vol] 13.1 g/dL Normal 11.3-15.9 [facility] Comment on above: Performed By: #### 4 [id number] #### [facility] (DEFAULT) [address] [place] [address] Man Diff? Auto Invalid Interpretation Code [facility] Comment on above: Performed By: #### 4 [id number] #### [facility] (DEFAULT) [address] [place] [address] 56551 MCH (RBC) [Entitic mass] 25 pg Normal 24-34 [facility] Comment on above: Performed By: #### 4 [id number] #### [facility] (DEFAULT) [address] [place] [address] 08290 MCHC (RBC) [Mass/Vol] 32 g/dL Normal 26-37 [facility] Comment on above: Performed By: #### 4 [id number] #### [facility] (DEFAULT) [address] [place] [address] MCV (RBC) [Entitic vol] 81 fL Normal 81-100 [facility] Comment on above: Performed By: #### 4 [id number] #### [facility] (DEFAULT) [address] [place] [address] Platelet 298 x10 Normal 138-427 [facility] Comment on above: Performed By: #### 4 [id number] #### [facility] (DEFAULT) [address] [place] [address] Platelet mean volume (Bld) [Entitic vol] 8.6 fL Normal 6.3-10.2 [facility] Comment on above: Performed By: #### 4 [id number] #### [facility] (DEFAULT) [address] [place] [address] RBC 5.14 x10 Normal 3.70-5.30 [facility] Comment on above: Performed By: #### 4 [id number] #### [facility] (DEFAULT) [address] [place] [address] WBC 7.8 x10 Normal 3.5-10.5 [facility] Comment on above: Performed By: #### 4 [id number] #### [facility] (DEFAULT) [address] [place] [address] CMP Standardon 03-16-2023 Breakpoint Chem Normal [facility] Comment on above: Performed By: #### 4 [id number] #### [facility] (DEFAULT) [address] [place] [address] eGFR Non AA >60 Invalid Interpretation Code [facility] Comment on above: Performed By: #### 4 [id number] #### [facility] (DEFAULT) [address] [place] [address] eGFR AA >60 Invalid Interpretation Code [facility] Comment on above: Performed By: #### 4 [id number] #### [facility] (DEFAULT) [address] [place] [address] Albumin [Mass/Vol] 3.9 g/dL Normal 3.5-5.0 [facility] Comment on above: Performed By: #### 4 [id number] #### [facility] (DEFAULT) [address] [place] [address] 31489 Albumin/Globulin [Mass ratio] 1.1 {ratio} Low 1.4-2.6 [facility] Comment on above: Performed By: #### 4 [id number] #### [facility] (DEFAULT) [address] [place] [address] 24594 Alk Phos 76 IU/L Normal 32-91 [facility] Comment on above: Performed By: #### 4 [id number] #### [facility] (DEFAULT) [address] [place] [address] 36727 ALT [Catalytic activity/Vol] 17.0 U/L Normal 14.0-54.0 [facility] Comment on above: Performed By: #### 4 [id number] #### [facility] (DEFAULT) [address] [place] [address] 19838 Anion gap [Moles/Vol] 26.3 mmol/L High 5.0-19.0 [facility] Comment on above: Performed By: #### 4 [id number] #### [facility] (DEFAULT) [address] [place] [address] 00802 AST [Catalytic activity/Vol] 19 U/L Normal 15-41 [facility] Comment on above: Performed By: #### 4 [id number] #### [facility] (DEFAULT) [address] [place] [address] 50530 Bili Total 1.6 mg/dL High 0.3-1.2 [facility] Comment on above: Performed By: #### 4 [id number] #### [facility] (DEFAULT) [address] [place] [address] 09679 Calcium [Mass/Vol] 8.0 mg/dL Low 8.9-10.3 [facility] Comment on above: Performed By: #### 4 [id number] #### [facility] (DEFAULT) [address] [place] [address] 25913 Chloride [Moles/Vol] 97 mmol/L Low 101-111 [facility] Comment on above: Performed By: #### 4 [id number] #### [facility] (DEFAULT) [address] [place] [address] 59988 CO2 [Moles/Vol] 8 mmol/L Low 21-32 [facility] Comment on above: Performed By: #### 4 [id number] #### [facility] (DEFAULT) [address] [place] [address] 17328 Creatinine [Mass/Vol] 0.99 mg/dL Normal 0.60-1.30 [facility] Comment on above: Performed By: #### 4 [id number] #### [facility] (DEFAULT) [address] [place] [address] 41777 Globulin (S) [Mass/Vol] 3.4 g/dL Normal 1.5-4.3 [facility] Comment on above: Performed By: #### 4 [id number] #### [facility] (DEFAULT) [address] [place] [address] 78787 Glucose [Mass/Vol] 645.0 mg/dL Critically abnormal 74.0-118.0 [facility] Comment on above: Result Comment: Crit ical result GLU 645 mg/dL called to and read back by Sanjuana BENSON RN at 16-Mar-2023 11:05 by Anahy. Performed By: #### 4 [id number] #### [facility] (DEFAULT) [address] [place] [address] 73509 Osmolality 285 mOsm/L Invalid Interpretation Code [facility] Comment on above: Performed By: #### 4 [id number] #### [facility] (DEFAULT) [address] [place] [address] 85644 Potassium [Moles/Vol] 5.3 mmol/L High 3.6-5.1 [facility] Comment on above: Performed By: #### 4 [id number] #### [facility] (DEFAULT) [address] [place] [address] 37254 Protein [Mass/Vol] 7.3 g/dL Normal 6.5-8.1 [facility] Comment on above: Performed By: #### 4 [id number] #### [facility] (DEFAULT) [address] [place] [address] 33194 Sodium [Moles/Vol] 126.0 mmol/L Low 136.0-144.0 [facility] Comment on above: Performed By: #### 4 [id number] #### [facility] (DEFAULT) [address] [place] [address] 37826 Urea nitrogen [Mass/Vol] 16 mg/dL Normal 8-26 [facility] Comment on above: Performed By: #### 4 [id number] #### [facility] (DEFAULT) [address] [place] [address] 31485 Urea nitrogen/Creatinine [Mass ratio] 16.1 mg/mg Normal 4.6-16.2 [facility] Comment on above: Performed By: #### 4 [id number] #### [facility] (DEFAULT) [address] [place] [address] 93914 COVID/Flu/RSV (GeneXpert)on 03-16-2023 Flu A (GXpert COVFLURSV) Negative Normal Negative [facility] Comment on above: Performed By: #### 7 [id number], [id number] #### [facility] (DEFAULT) [address] [place] [address] 21207 Flu B (GXpert COVFLURSV) Negative Normal Negative [facility] Comment on above: Performed By: #### 7 [id number], [id number] #### [facility] (DEFAULT) [address] [place] [address] 33867 RSV (GXpert COVFLURSV) Negative Normal Negative [facility] Comment on above: Performed By: #### 7 [id number], [id number] #### [facility] (DEFAULT) [address] [place] [address] 13645 SARS-CoV-2 (COVID-19) RNA CARMEN+probe Ql (Unsp spec) Positive Critically abnormal Negative [facility] Comment on above: Result Comment: Resu lts Called To September By TB And Read Back For Confirmation On 03/16/2023 11:14:35 EDT. Performed by PCR methodology. Performed By: #### 7 [id number], [id number] #### [facility] (DEFAULT) [address] [place] [address] 41303 ED Clinical Summaryon 2022 ED Clinical Summary [facility] Emergency Department [address] [place] [address] ED Clinical Summary PERSON INFORMATION Name: DOUGLAS CORDOVA Age: 27 Years Sex: FEMALE : 1995 MRN: Acct#: Visit Reason: Hyperglycemia; DKA, COVID + Arrival: 03/16/2023 09:20:00 Discharge: LOS: 000 03:32 Check In: 03/16/2023 09:20:00 Checkout:03/16/2023 12:52:50 Address: [address] [place] [address] PCP: ARCADIO IGLESIAS PROVIDER INFORMATION Provider Role [...] ron verbalizes understanding of instructions given Comment: [facility] ED Note-Nursingon 03-16-2023 ED Note-Nursing Patient presents with complaints of increased blood sugar. Patient with a history of Type 1 diabetes. Patient in insulin, however states she has not had her insulin in 3 days because she has not been able to get her prescription. Patient also complains of nausea and vomiting. Patient with an obvious acetone smell about her. [facility] ED Patient Education Noteon 03-16-2023 ED Patient Education Note Education Materials [facility] ED Patient Summaryon 023 ED Patient Summary [facility] - Emergency Department [address] [id number] PATIENT DISCHARGE INSTRUCTIONS Patient Information Name: DOUGLAS CORDOVA Age: 27 Years Date of : 1995 Reason For Visit: Hyperglycemia; DKA, COVID + Arrival Time: 03/16/2023 09:20:00 Primary Care Physician: ARCADIO IGLESIAS Attending Physician: Macy Armenta MD Comment: Visit Diagnosis: Diagnoses This Visit COVID-19 (U07.1) Diabetic ketoacidosis (E11.10) Hyperglycemia (318031787) The Pharmacy at [facility] is open Friday through Friday from 9A [...] alcohol and/or drug addiction problems; contact the [facility] 20/01 Crisis Hotline -Text [id number] [place] [phone]. If you received any narcotics, sedation, or [...] and treatment you received today in the [facility] Emergency Department were for an urgent problem and are not intended as complete care. It is important for you to follow up with a doctor, nurse practitioner, or physician?s car rental sales assistant for ongoing care. If your symptoms become [...] so we can reach you if necessary. [facility] Emergency Department has provided you with a complete list of medications post discharge. Please inform your primary clinician/provider of your visit and for further instruction on these medications. Any specific questions regarding your chronic medications and dosages should be discussed with your primary care physician(s) and/or pharmacist. Medications to Continue That Have Not Changed Other Medications amphetamine-dextroam phetamine (amphetamine-dextroa mphetamine 30 mg oral capsule, extended release) carisoprodol (carisoprodol 350 mg oral tablet) Durable Medical Equipment for Prescription (Vega-Chi PODS (GEN 4) 5PK) See instructions. gabapentin [...] Cough ? (more content not included)... Normal [facility] Magnesiumon 03-16-2023 Magnesium [Mass/Vol] 1.82 mg/dL Normal 1.80-2.50 [facility] Comment on above: Performed By: #### 4 [id number] #### [facility] (DEFAULT) [address] [place] [address] 35993 POCT Glucose Levelon 023 Glucose [Mass/Vol] 210 mg/dL High [address] [place] [address] Comment on above: Performed By: #### 4 [id number] #### [facility] (DEFAULT) [address] [place] [address] 54356 Glucose [Mass/Vol] 236 mg/dL High [address] [place] [address] Comment on above: Performed By: #### 7 [id number], [id number] #### [facility] (DEFAULT) [address] [place] [address] 92322 Glucose [Mass/Vol] 297 mg/dL High [address] Comment on above: Performed By: #### 4 [id number] #### [facility] (DEFAULT) [address] [place] [address] 41045 Glucose [Mass/Vol] 273 mg/dL High [address] [place] [address] Comment on above: Performed By: #### 4 [id number] #### [facility] (DEFAULT) [address] [place] [address] 46673 Glucose [Mass/Vol] 297 mg/dL High [address] [place] [address] Comment on above: Performed By: #### 4 [id number] #### [facility] (DEFAULT) [address] [place] [address] 65578 Glucose [Mass/Vol] 563 mg/dL Critically abnormal [address] [place] [address] Comment on above: Performed By: #### 4 [id number] #### [facility] (DEFAULT) [address] [place] [address] 93511 Test Serum Preg Serum Internal Control OK [facility] Comment on above: Performed By: #### 4 [id number] #### [facility] (DEFAULT) [address] [place] [address] 87575 Test Serum Qual Negative [facility] Comment on above: Performed By: #### 4 [id number] #### [facility] (DEFAULT) [address] [place] [address] 73539 Progress Note - Nurseon 02-28 Progress Note - Nurse This newspaper distributor supervisor called to urgent care waiting room area by clerical staff-advised that pt was discharged from hospital and needed a ride home. Upon further investigation, pt was found to have signed out AMA from , confirmed with 2S cutter and edge trimmer-and advised staff that she would be walking home. This newspaper distributor supervisor follows up with patient. Pt sitting in urgent care waiting area with emesis bag in hand, barefoot, tearful. Pt advises she did check herself out of care against medical advice. This newspaper distributor supervisor asks if she feels safe to go home at this time and if she has access to her insulin-pt advises she does. This newspaper distributor supervisor asks if she could use any [...] [Verified on: 03/16/2023 17:51 EDT] Yue RNShellie [facility] Progress Note - Nurse Patient left with all of her belongings and walked out of room to elevator without any socks. [Electronically Signed on: 03/16/2023 18:10 EDT] Aster Bernal RN [Verified on: 03/16/2023 18:10 EDT] Aster Bernal RN [facility] Progress Note - Nurse Upon doing assessment/ admission history patient requested something to drink. I informed her and reminded her that every time she drinks she has a large emesis. She didn't like that I refused her fluids and she said she wanted to leave. I had her sign an AMA paper. Then I notified Dr. Armenta and Suzi the newspaper distributor supervisor. [Electronically Signed on: 03/16/2023 17:46 EDT] Aster Bernal RN [Verified on: 03/16/2023 17:46 EDT] Cook, Aster K RN [facility] UA [id number] 03-16-2023 [address] 1+ [facility] Comment on above: Order Comment: Urina lysis Microscopic order added on by [employer] Rules system. Performed By: #### 1 [id number], [id number] ####[facility] (DEFAULT)[address] [place] [address] [facility] Comment on above: Order Comment: Urina lysis Microscopic order added on by [employer] system. Performed By: #### 1 [id number], [id number] ####[facility] (DEFAULT)[address] [place] [address]3888 UA RBC 0-2 [facility] Comment on above: Order Comment: Urina lysis Microscopic order added on by [employer] system. Performed By: #### 1 [id number], [id number] ####[facility] (DEFAULT)[address] [place] [address] [facility] Comment on above: Order Comment: Urina lysis Microscopic order added on by [employer] system. Performed By: #### 1 [id number], [id number] ####[facility] (DEFAULT)[address] [place] [address] [address] WBC None Seen [facility] Comment on above: Order Comment: Urina lysis Microscopic order added on by [employer] system. Performed By: #### 1 [id number], [id number] ####[facility] (DEFAULT)[address] [place] [address] UA w Culture if Ind Standard on 03-16-[address] [facility] Comment on above: Performed By: #### 1 [id number], [id number] ####[facility] (DEFAULT)[address] [place] [address] Color (U) Yellow [facility] Comment on above: Performed By: #### 1 [id number], [id number] ####[facility] (DEFAULT)[address] [place] [address] Culture? No [facility] Comment on above: Result Comment: Resu lt created by rule GL_MAGR_ADD_UA_CULT Result created by rule GL_MAGR_ADD_UA_CULT1 Performed By: #### 1 [id number], [id number] ####[facility] (DEFAULT)[address] [place] [address] 23364 Glucose (U) [Mass/Vol] mg/dL Normal [facility] Comment on above: Performed By: #### 1 [id number], [id number] ####[facility] (DEFAULT)[address] [place] [address] 65068 Ketones Ql (U) >=80 Normal [facility] Comment on above: Performed By: #### 1 [id number], [id number] ####[facility] (DEFAULT)[address] [place] [address] 15010 Micro? Indicated Invalid Interpretation Code [facility] Comment on above: Result Comment: Resu lt created by rule GL_MAGR_ADD_UA_MICRO Performed By: #### 1 [id number], [id number] ####[facility] (DEFAULT)[address] [place] [address] 23210 UA Bilirubin Negative Normal [facility] Comment on above: Performed By: #### 1 [id number], [id number] ####[facility] (DEFAULT)[address] [place] [address] 94024 UA Blood TRACE Abnormal NEGATIVE [facility] Comment on above: Performed By: #### 1 [id number], [id number] ####[facility] (DEFAULT)[address] [place] [address] 14658 UA Clarity CLEAR Normal CLEAR [facility] Comment on above: Performed By: #### 1 [id number], [id number] ####[facility] (DEFAULT)[address] [place] [address] 35263 UA Leuk Est Negative Normal NEGATIVE [facility] Comment on above: Performed By: #### 1 [id number], [id number] ####[facility] (DEFAULT)[address] [place] [address] 95991 UA Nitrite Negative Normal NEGATIVE [facility] Comment on above: Performed By: #### 1 [id number], [id number] ####[facility] (DEFAULT)[address] [place] [address] 89520 UA pH 6.0 Normal 5-8 [facility] Comment on above: Performed By: #### 1 [id number], [id number] ####[facility] (DEFAULT)[address] [place] [address] 47088 UA Protein Negative Normal NEGATIVE [facility] Comment on above: Performed By: #### 1 [id number], [id number] ####[facility] (DEFAULT)[address] [place] [address] 06958 UA Spec Grav 1.025 Normal 1.001-1.035 [facility] Comment on above: Performed By: #### 1 [id number], [id number] ####[facility] (DEFAULT)[address] [place] [address] 42258 UA Urobilinogen 0.2 mg/dL Normal 0.2-1.0 [facility] Comment on above: Performed By: #### 1 [id number], [id number] ####[facility] (DEFAULT)[address] [place] [address] 18314 Urine Source Clean Catch Normal [facility] Comment on above: Performed By: #### 1 [id number], [id number] ####[facility] (DEFAULT)[address] [place] [address] 77011 ACETONE SERUMon 08-25-2022 ACETONE SMALL Abnormal NEGATIVE [facility] Comment on above: Performed By: #### A CETON, PREG #### [facility] [address] [address] [address] Darleen Cho CBC AUTO DIFFon 08-25-2022 BASO # 0.1 103/ul Normal 0.0-0.1 [facility] Comment on above: Performed By: #### B MP #### [facility] [address] [address] [address] Darleen Cho Basophils/100 WBC (Bld) 0.4 % Normal 0.2-2.0 [facility] Comment on above: Performed By: #### B MP #### [facility] [address] [address] [address] Darleen Cho EO # 0.1 103/ul Normal 0.0-0.7 [facility] Comment on above: Performed By: #### B MP #### [facility] [address] [place] [address] Dr. Darleen Cho Eosinophils/100 WBC (Bld) 0.3 % Critically low 0.9-7.0 [facility] Comment on above: Performed By: #### B MP #### [facility] [address] [place] [address] Dr. Darleen Cho Erythrocyte distribution width (RBC) [Ratio] 14.6 % Normal 11.0-15.0 [facility] Comment on above: Performed By: #### B MP #### [facility] [address] [place] [address] Dr. Darleen Cho Hematocrit (Bld) [Volume fraction] 43.9 % Normal 36.0-48.0 [facility] Comment on above: Performed By: #### B MP #### [facility] [address] [place] [address] Dr. Darleen Cho Hemoglobin (Bld) [Mass/Vol] 13.8 g/dL Normal 12.0-16.0 [facility] Comment on above: Performed By: #### B MP #### [facility] [address] [place] [address] Dr. Darleen Cho IG # 0.25 10e3/ul Critically high 0.00-0.03 [facility] Comment on above: Performed By: #### B MP #### [facility] [address] [place] [address] Dr. Darleen Cho IG % 1.1 % Critically high 0.0-0.5 [facility] Comment on above: Performed By: #### B MP #### [facility] [address] [place] [address] Dr. Darleen Cho LYMPH # 2.3 103/ul Normal 1.2-3.8 [facility] Comment on above: Performed By: #### B MP #### [facility] [address] [address] [address] Darleen Cho Lymphocytes/100 WBC (Bld) 10.4 % Critically low 20.5-60.0 [facility] Comment on above: Performed By: #### B MP #### [facility] [address] [address] [address] Darleen Cho MANUAL DIFF REQ NO Normal [facility] Comment on above: Performed By: #### B MP #### [facility] [address] [address] [address] Darleen Cho MCH (RBC) [Entitic mass] 24.1 pg Critically low 26.7-34 .0 [facility] Comment on above: Performed By: #### B MP #### [facility] [address] [place] [address] Dr. Darleen Cho MCHC (RBC) [Mass/Vol] 31.4 g/dL Normal 29.9-35.2 [facility] Comment on above: Performed By: #### B MP #### [facility] [address] [place] [address] Dr. Darleen Cho MCV (RBC) [Entitic vol] 76.7 fL Critically low 81.0-99. 0 [facility] Comment on above: Performed By: #### B MP #### [facility] [address] [place] [address] Dr. Darleen Cho MONO # 0.3 103/ul Normal 0.3-0.8 [facility] Comment on above: Performed By: #### B MP #### [facility] [address] [place] [address] Dr. Darleen Cho Monocytes/100 WBC (Bld) 1.2 % Critically low 1.7-12.0 [facility] Comment on above: Performed By: #### B MP #### [facility] [address] [place] [address] Dr. Darleen Cho NEUT # 19.4 103/ul Critically high 1.4-6.[address] [facility] Comment on above: Performed By: #### B MP #### [facility] [address] [place], [place] [address] Dr. Darleen Cho Neutrophils/100 WBC (Bld) 86.6 % Critically high 43.0-75.0 [facility] Comment on above: Performed By: #### B MP #### [facility] [address] [place] [address] Dr. Darleen Cho Platelet mean volume (Bld) [Entitic vol] 9.1 fL Critically low 9.5-13.5 [facility] Comment on above: Performed By: #### B MP #### [facility] [address] [place] [address] Dr. Darleen Cho PLT 557 103/ul Critically high 150-450 [facility] Comment on above: Performed By: #### B MP #### [facility] [address] [place] [address] Dr. Darleen Cho RBC 5.72 106/ul Critically high 4.20-5.[address] [facility] Comment on above: Performed By: #### B MP #### [facility] [address] [place] [address] Dr. Darleen Cho WBC 22.4 103/ul Critically high 4.0-11.[address] [facility] Comment on above: Performed By: #### B MP #### [facility] [address] [place] [address] Dr. Darleen Cho CULTURE BLOODon 08-25-2022 Microscopic examination of blood, culture Culture Observations: NO GROWTH AT 5 DAYS. Normal [facility] Comment on above: Performed By: #### B MP #### [facility] [address] [place] [address] Dr. Darleen Cho Microscopic examination of blood, culture Culture Observations: NO GROWTH AT 5 DAYS. Normal [facility] Comment on above: Performed By: #### B MP #### [facility] [address] [place], [place] [address] Dr. Darleen Cho CULTURE URINEon 08-25-2022 CULTURE URINE Culture Observations: NO GROWTH. Normal [facility] Comment on above: Performed By: #### B MP #### [facility] [address] [place] [address] Dr. Darleen Cho Covid-19 PCR (CVDTBH)on 08-01 SARS-CoV-2 (COVID-19) RNA CARMEN+probe Ql (Unsp spec) Not detected Normal NOT DETECTED [facility] Comment on above: Result Comment: When [...] for this test is supported by the [place] of Health and Human Service's declaration that [...] used). Performed By: #### C VDTBH #### [facility] [address] [place] [address] Dr. Darleen Cho ER URINE PROFILEon 3 Bilirubin Ql (U) SMALL Abnormal NEGATIVE [facility] Comment on above: Performed By: #### U MICRO, ERUR #### [facility] [address] [place] [address] Dr. Darleen Cho Clarity (U) CLEAR Normal CLEAR [facility] Comment on above: Performed By: #### U MICRO, ERUR #### [facility] [address] [place] [address] Dr. Darleen Cho Color (U) LT. YELLOW Normal YELLOW [facility] Comment on above: Performed By: #### U MICRO, ERUR #### [facility] [address] [place] [address] Dr. Darleen Cho ERUAHD A micrscopic examination will be performed if indicated. Normal [facility] Comment on above: Performed By: #### U MICRO, ERUR #### [facility] [address] [address] [address] Darleen Cho Glucose Ql (U) 500 mg/dl Abnormal NEGATIVE [facility] Comment on above: Performed By: #### U MICRO, ERUR #### [facility] [address] [place] [address] Dr. Darleen Cho Hemoglobin Ql (U) MODERATE Abnormal NEGATIVE [facility] Comment on above: Performed By: #### U MICRO, ERUR #### [facility] [address] [address] [address] Darleen Cho Ketones Ql (U) >=80 Abnormal NEGATIVE [facility] Comment on above: Performed By: #### U MICRO, ERUR #### [facility] [address] [place] [address] Dr. Darleen Cho LEUKOCYTES Negative Normal NEGATIVE [facility] Comment on above: Performed By: #### U MICRO, ERUR #### [facility] [address] [place] [address] Dr. Darleen Cho Nitrite Ql (U) Negative Normal NEGATIVE [facility] Comment on above: Performed By: #### U MICRO, ERUR #### [facility] [address] [place] [address] Dr. Darleen Cho pH (U) 5.5 [pH] Normal 5-9 [facility] Comment on above: Performed By: #### U MICRO, ERUR #### [facility] [address] [place] [address] Dr. Darleen Cho Protein (U) [Mass/Vol] 100 mg/dL Abnormal NEGAT MALISSA/ TRACE [facility] Comment on above: Performed By: #### U MICRO, ERUR #### [facility] [address] [place] [address] Dr. Darleen Cho SPEC GRAVITY >=1.030 Abnormal 1.005-<=1.02 5 [facility] Comment on above: Performed By: #### U MICRO, ERUR #### [facility] [address] [place] [address] Dr. Darleen Cho UR MICRO IND INDICATED Normal [facility] Comment on above: Performed By: #### U MICRO, ERUR #### [facility] [address] [place] [address] Dr. Darleen Cho Urobilinogen Qn (U) 0.2 {Ophelia'U}/dL Normal 0.2 - 1. 0 [facility] Comment on above: Performed By: #### U MICRO, ERUR #### [facility] [address] [place] [address] Dr. Darleen Cho HIV 1/2 RAPID (EXPOSURE ONLY )on 08-25-2022 HIV AB Non-Reactive Normal NON-REACTIVE [facility] Comment on above: Performed By: #### R PDHIV #### [facility] [address] [place] [address] Dr. Darleen Cho HIV AG Non-Reactive Normal NON-REACTIVE [facility] Comment on above: Performed By: #### R PDHIV #### [facility] [address] [place] [address] Dr. Darleen Cho INTERNAL CONTROLS Within Normal Limits Normal Wi thin Normal Limits [facility] Comment on above: Performed By: #### R PDHIV #### [facility] [address] [place] [address] Dr. Darleen Cho RAPID HIV INFO SEE BELOW Normal [facility] Comment on above: Result Comment: This test is used for the initial screening of the exposure source. Confirmation of all reactive results will be obtained through reference lab testing. Performed By: #### R PDHIV #### [facility] [address] [place] [address] Dr. Darleen Cho PH VENOUS BLOODon 08-25-2022 PCO2 VENOUS 24.1 mmHg Critically low 40.0-52.0 [facility] Comment on above: Performed By: #### B MP #### [facility] [address] [place] [address] Dr. Darleen Cho pH VENOUS 7.288 Critically low 7.330-7.430 [facility] Comment on above: Performed By: #### B MP #### [facility] [address] [place] [address] Dr. Darleen Cho PCO2 VENOUS 18.1 mmHg Critically low 40.0-52.0 [facility] Comment on above: Performed By: #### P HVEN #### [facility] [address] [place] [address] Dr. Darleen Cho pH VENOUS 7.157 Critically low 7.330-7.430 [facility] Comment on above: Performed By: #### P HVEN #### [facility] [address] [address] [address] Darleen Cho PCO2 VENOUS 18.3 mmHg Critically low 40.0-52.0 [facility] Comment on above: Performed By: #### P HVEN #### [facility] [address] [address] [address] Darleen Cho pH VENOUS 6.933 Critically low 7.330-7.430 [facility] Comment on above: Performed By: #### P HVEN #### [facility] [address] [place] [address] Dr. Darleen Cho POINT OF CARE GLUCOSEon 08-01 Glucose [Mass/Vol] 201 mg/dL Critically high 74-106 [facility] Comment on above: Performed By: #### B MP #### [facility] [address] [place] [address] Dr. Darleen Cho Glucose [Mass/Vol] 373 mg/dL Critically high 74-106 [facility] Comment on above: Performed By: #### B MP #### [facility] [address] [address] [address] Darleen Cho Glucose [Mass/Vol] 433 mg/dL Critically high 74-106 [facility] Comment on above: Performed By: #### B MP #### [facility] [address] [place] [address] Dr. Darleen Cho PREG HCG QUALon 08-25-2022 , QUAL Negative Normal NEGATIVE [facility] Comment on above: Performed By: #### A CETON, PREG #### [facility] [address] [place] [address] Dr. Darleen Cho PROF CHEM 8 (BAS METB)on Anion gap [Moles/Vol] 19.7 mmol/L Normal [facility] Comment on above: Performed By: #### B MP #### [facility] [address] [address] [address] Darleen Cho Calcium [Mass/Vol] 7.2 mg/dL Critically low 8.5-10.1 [facility] Comment on above: Performed By: #### B MP #### [facility] [address] [place] [address] Dr. Darleen Cho Chloride [Moles/Vol] 100 mmol/L Normal 98-107 [facility] Comment on above: Performed By: #### B MP #### [facility] [address] [place] [address] Dr. Darleen Cho CO2 [Moles/Vol] 13.5 mmol/L Critically low 21.0-32.0 [facility] Comment on above: Performed By: #### B MP #### [facility] [address] [place] [address] Dr. Darleen Cho Creatinine [Mass/Vol] 0.71 mg/dL Normal 0.55-1.02 [facility] Comment on above: Performed By: #### B MP #### [facility] [address] [place] [address] Dr. Darleen Cho EGFR-AF FINNISH >60 Normal >=60 [facility] Comment on above: Performed By: #### B MP #### [facility] [address] [place] [address] Dr. Darleen Cho EGFR-NON AF FINNISH >60 Normal >=60 [facility] Comment on above: Performed By: #### B MP #### [facility] [address] [place] [address] Dr. Darleen Cho Glucose [Mass/Vol] 333 mg/dL Critically high 74-106 [facility] Comment on above: Performed By: #### B MP #### [facility] [address] [place] [address] Dr. Darleen Cho Potassium [Moles/Vol] 3.2 mmol/L Critically low 3.5-5.1 [facility] Comment on above: Performed By: #### B MP #### [facility] [address] [address] [address] Darleen Cho Sodium [Moles/Vol] 130 mmol/L Critically low 136-145 [facility] Comment on above: Performed By: #### B MP #### [facility] [address] [address] [address] Darleen Cho Urea nitrogen [Mass/Vol] 8.0 mg/dL Normal 7.0-18.0 [facility] Comment on above: Performed By: #### B MP #### [facility] [address] [address] [address] Darleen Cho Urea nitrogen/Creatinine [Mass ratio] 11.3 mg/mg Normal [facility] Comment on above: Performed By: #### B MP #### [facility] [address] [address] [address] Darleen Cho Anion gap [Moles/Vol] 24.7 mmol/L Normal [facility] Comment on above: Performed By: #### B MP #### [facility] [address] [address] [address] Darleen Cho Calcium [Mass/Vol] 7.2 mg/dL Critically low 8.5-10.1 [facility] Comment on above: Performed By: #### B MP #### [facility] [address] [address] [address] Darleen Cho Chloride [Moles/Vol] 102 mmol/L Normal 98-107 [facility] Comment on above: Performed By: #### B MP #### [facility] [address] [address] [address] Darleen Cho CO2 [Moles/Vol] 8.6 mmol/L Critically low 21.0-32.0 [facility] Comment on above: Performed By: #### B MP #### [facility] [address] [address] [address] Darleen Cho Creatinine [Mass/Vol] 0.63 mg/dL Normal 0.55-1.02 [facility] Comment on above: Performed By: #### B MP #### [facility] [address] [address] [address] Darleen Cho EGFR-AF FINNISH >60 Normal >=60 [facility] Comment on above: Performed By: #### B MP #### [facility] [address] [address] [address] Darleen Cho EGFR-NON AF FINNISH >60 Normal >=60 [facility] Comment on above: Performed By: #### B MP #### [facility] [address] [address] [address] Darleen Cho Glucose [Mass/Vol] 228 mg/dL Critically high 74-106 [facility] Comment on above: Performed By: #### B MP #### [facility] [address] [place] [address] Dr. Darleen Cho Potassium [Moles/Vol] 3.3 mmol/L Critically low 3.5-5.1 [facility] Comment on above: Performed By: #### B MP #### [facility] [address] [place] [address] Dr. Darleen Cho Sodium [Moles/Vol] 132 mmol/L Critically low 136-145 [facility] Comment on above: Performed By: #### B MP #### [facility] [address] [place] [address] Dr. Darleen Cho Urea nitrogen [Mass/Vol] 11.0 mg/dL Normal 7.0-18.0 [facility] Comment on above: Performed By: #### B MP #### [facility] [address] [place] [address] Dr. Darleen Cho Urea nitrogen/Creatinine [Mass ratio] 17.5 mg/mg Normal [facility] Comment on above: Performed By: #### B MP #### [facility] [address] [place] [address] Dr. Darleen Cho Anion gap [Moles/Vol] 29.5 mmol/L Normal [facility] Comment on above: Performed By: #### B MP #### [facility] [address] [place] [address] Dr. Darleen Cho Calcium [Mass/Vol] 8.6 mg/dL Normal 8.5-10.1 [facility] Comment on above: Performed By: #### B MP #### [facility] [address] [address] [address] Darleen Cho Chloride [Moles/Vol] 94 mmol/L Critically low 98-107 [facility] Comment on above: Performed By: #### B MP #### [facility] [address] [address] [address] Darleen Cho CO2 [Moles/Vol] 5.9 mmol/L Critically low 21.0-32.0 [facility] Comment on above: Performed By: #### B MP #### [facility] [address] [place] [address] Dr. Darleen Cho Creatinine [Mass/Vol] 0.94 mg/dL Normal 0.55-1.02 [facility] Comment on above: Performed By: #### B MP #### [facility] [address] [place] [address] Dr. Darleen Cho EGFR-AF FINNISH >60 Normal >=60 [facility] Comment on above: Performed By: #### B MP #### [facility] [address] [address] [address] Darleen Cho EGFR-NON AF FINNISH >60 Normal >=60 [facility] Comment on above: Performed By: #### B MP #### [facility] [address] [address] [address] Darleen Cho Glucose [Mass/Vol] 403 mg/dL Critically high 74-106 [facility] Comment on above: Performed By: #### B MP #### [facility] [address] [address] [address] Darleen Cho Potassium [Moles/Vol] 4.4 mmol/L Normal 3.5-5.1 [facility] Comment on above: Performed By: #### B MP #### [facility] [address] [place] [address] Dr. Darleen Cho Sodium [Moles/Vol] 125 mmol/L Critically low 136-145 [facility] Comment on above: Performed By: #### B MP #### [facility] [address] [address] [address] Darleen Cho Urea nitrogen [Mass/Vol] 10.0 mg/dL Normal 7.0-18.0 [facility] Comment on above: Performed By: #### B MP #### [facility] [address] [address] [address] Darleen Cho Urea nitrogen/Creatinine [Mass ratio] 10.6 mg/mg Normal [facility] Comment on above: Performed By: #### B MP #### [facility] [address] [address] [address] Darleen Cho URINE MICROSCOPIC ONLYon BACTERIA TRACE Abnormal NONE SEEN [facility] Comment on above: Performed By: #### U MICRO, ERUR #### [facility] [address] [place] [address] Dr. Darleen Cho Bacteria identified Cx Nom (U) NOT INDICATED Normal [facility] Comment on above: Performed By: #### U MICRO, ERUR #### [facility] [address] [place] [address] Dr. Darleen Cho CAST NONE SEEN Normal NONE SEEN [facility] Comment on above: Performed By: #### U MICRO, ERUR #### [facility] [address] [place] [address] Dr. Darleen Cho Crystals LM Nom (Urine sed) NONE SEEN Normal NONE SEEN [facility] Comment on above: Performed By: #### U MICRO, ERUR #### [facility] [address] [place] [address] Dr. Darleen Cho Epithelial cells LM Ql (Urine sed) FEW Abnormal NONE SEEN /RARE [facility] Comment on above: Performed By: #### U MICRO, ERUR #### [facility] [address] [place] [address] Dr. Darleen Cho MUCOUS NONE SEEN Normal NONE SEEN [facility] Comment on above: Performed By: #### U MICRO, ERUR #### [facility] [address] [place] [address] Dr. Darleen Cho RBC 2-5 Abnormal 0-2 [facility] Comment on above: Performed By: #### U MICRO, ERUR #### [facility] [address] [address] [address] Darleen Cho WBC 0-2 Abnormal NONE SEEN [facility] Comment on above: Performed By: #### U MICRO, ERUR #### [facility] [address] [address] [address] Darleen Cho XR CHEST 1 Von 08-25-2022 XR CHEST 1 V EXAM: XR CHEST 1 V INDICATION: SHORTNESS OF BREATH. COMPARISON: None. TECHNIQUE: Single frontal view of the chest FINDINGS: Normal cardiomediastinal contours. Clear lungs. No pleural effusion or pneumothorax. No acute osseous abnormality. IMPRESSION: No acute cardiopulmonary process. Electronically authenticated by: ROSA M MENDEZ Date: 2022-08-25 12:46 Normal [facility] Covid-19 PCR (CVDTB)on 02-28 SARS-CoV-2 (COVID-19) RNA CARMEN+probe Ql (Unsp spec) Not detected Normal NOT DETECTED [facility] Comment on above: Result Comment: This test is not yet approved or cleared by the [place] FDA. When there are no FDA-approved or cleared tests available, and other criteria are met, FDA can make tests available under an emergency access mechanism called an Emergency Use Authorization (EUA). The EUA for this test is supported by the [employer] of Health and Human Service's (HHS's) declaration [...] Performed By: #### A CETON, PREG #### [facility] [address] [address] [address] Darleen Cho Basic Metabolic Panelon Anion gap [Moles/Vol] 10 mmol/L 9 - 17 mmol/L [place] Bun/Cre Ratio NOT REPORTED [place] Calcium [Mass/Vol] 8.3 mg/dL Low 8.6 - 10. 4 mg/dL [place] Chloride [Moles/Vol] 106 mmol/L 98 - 10 7 mmol/L [place] CO2 [Moles/Vol] 16 mmol/L Low 20 - 31 mmol/L [place] Creatinine [Mass/Vol] 0.53 mg/dL 0.5 - 0.9 mg/dL [place] GFR >60 >60 mL/min [place] GFR Non- >60 >60 mL/min [place] GFR/1.73 sq M predicted among non-blacks MDRD (S/P/Bld) [Vol rate/Area] [place] Comment on above: Average GFR for 20-2 9 years old: 116 mL/min/1.73sq m Chronic Kidney Disease: <60 mL/min/1.73sq m Kidney failure: <15 mL/min/1.73sq m eGFR calculated using average adult body mass. Additional eGFR calculator available at: http://www.CoffeeTable/multiple_crcl_2012.htm GFR/1.73 sq M predicted among non-blacks MDRD (S/P/Bld) [Vol rate/Area] NOT REPORTED [place] Glucose [Mass/Vol] 208 mg/dL High 70 - 99 mg/dL [place] Interpretation and review of laboratory results Abnormal [place] Potassium [Moles/Vol] 3.5 mmol/L Low 3.7 - 5.3 mmol/L [place] Sodium [Moles/Vol] 132 mmol/L Low 135 - 144 mmol/L [place] Urea nitrogen [Mass/Vol] 9 mg/dL 6 - 20 mg/d L [place] Anion gap [Moles/Vol] 13 mmol/L 9 - 17 mmol/L [place] Bun/Cre Ratio NOT REPORTED [place] Calcium [Mass/Vol] 8.4 mg/dL Low 8.6 - 10. 4 mg/dL [place] Chloride [Moles/Vol] 107 mmol/L 98 - 10 7 mmol/L [place] CO2 [Moles/Vol] 16 mmol/L Low 20 - 31 mmol/L [place] Creatinine [Mass/Vol] 0.6 mg/dL 0.5 - 0.9 mg/dL [place] GFR >60 >60 mL/min [place] GFR Non- >60 >60 mL/min [place] GFR/1.73 sq M predicted among non-blacks MDRD (S/P/Bld) [Vol rate/Area] NOT REPORTED [place] GFR/1.73 sq M predicted among non-blacks MDRD (S/P/Bld) [Vol rate/Area] [place] Comment on above: Average GFR for 20-2 9 years old: 116 mL/min/1.73sq m Chronic Kidney Disease: <60 mL/min/1.73sq m Kidney failure: <15 mL/min/1.73sq m eGFR calculated using average adult body mass. Additional eGFR calculator available at: http://www.CoffeeTable/multiple_crcl_2012.htm Glucose [Mass/Vol] 189 mg/dL High 70 - 99 mg/dL [place] Interpretation and review of laboratory results Abnormal [place] Potassium [Moles/Vol] 3.6 mmol/L Low 3.7 - 5.3 mmol/L [place] Sodium [Moles/Vol] 136 mmol/L 135 - 144 mmol/L [place] Urea nitrogen [Mass/Vol] 7 mg/dL 6 - 20 mg/d L [place] Anion gap [Moles/Vol] 8 mmol/L Low 9 - 17 mmol/L [place] Bun/Cre Ratio NOT REPORTED [place] Calcium [Mass/Vol] 7.6 mg/dL Low 8.6 - 10. 4 mg/dL [place] Chloride [Moles/Vol] 110 mmol/L High 98 - 10 7 mmol/L [place] CO2 [Moles/Vol] 16 mmol/L Low 20 - 31 mmol/L [place] Creatinine [Mass/Vol] 0.41 mg/dL Low 0.5 - 0.9 mg/dL [place] GFR >60 >60 mL/min [place] GFR Non- >60 >60 mL/min [place] GFR/1.73 sq M predicted among non-blacks MDRD (S/P/Bld) [Vol rate/Area] [place] Comment on above: Average GFR for 20-2 9 years old: 116 mL/min/1.73sq m Chronic Kidney Disease: <60 mL/min/1.73sq m Kidney failure: <15 mL/min/1.73sq m eGFR calculated using average adult body mass. Additional eGFR calculator available at: http://www.CoffeeTable/multiple_crcl_2012.htm GFR/1.73 sq M predicted among non-blacks MDRD (S/P/Bld) [Vol rate/Area] NOT REPORTED [place] Glucose [Mass/Vol] 188 mg/dL High 70 - 99 mg/dL [place] Interpretation and review of laboratory results Abnormal [place] Potassium [Moles/Vol] 3.6 mmol/L Low 3.7 - 5.3 mmol/L [place] Sodium [Moles/Vol] 134 mmol/L Low 135 - 144 mmol/L [place] Urea nitrogen [Mass/Vol] 5 mg/dL Low 6 - 20 mg/d L [place] Anion gap [Moles/Vol] 9 mmol/L 9 - 17 mmol/L [place] Bun/Cre Ratio NOT REPORTED [place] Calcium [Mass/Vol] 7.6 mg/dL Low 8.6 - 10. 4 mg/dL [place] Chloride [Moles/Vol] 118 mmol/L High 98 - 10 7 mmol/L [place] CO2 [Moles/Vol] 17 mmol/L Low 20 - 31 mmol/L [place] Creatinine [Mass/Vol] 0.46 mg/dL Low 0.5 - 0.9 mg/dL [place] GFR >60 >60 mL/min [place] GFR Non- >60 >60 mL/min [place] GFR/1.73 sq M predicted among non-blacks MDRD (S/P/Bld) [Vol rate/Area] NOT REPORTED [place] GFR/1.73 sq M predicted among non-blacks MDRD (S/P/Bld) [Vol rate/Area] [place] Comment on above: Average GFR for 20-2 9 years old: 116 mL/min/1.73sq m Chronic Kidney Disease: <60 mL/min/1.73sq m Kidney failure: <15 mL/min/1.73sq m eGFR calculated using average adult body mass. Additional eGFR calculator available at: http://www.CoffeeTable/multiple_crcl_2012.htm Glucose [Mass/Vol] 112 mg/dL High 70 - 99 mg/dL [place] Potassium [Moles/Vol] 3.1 mmol/L Low 3.7 - 5.3 mmol/L [place] Sodium [Moles/Vol] 144 mmol/L 135 - 144 mmol/L [place] Urea nitrogen [Mass/Vol] 5 mg/dL Low 6 - 20 mg/d L [place] Anion gap [Moles/Vol] 7 mmol/L Low 9 - 17 mmol/L [place] Bun/Cre Ratio NOT REPORTED [place] Calcium [Mass/Vol] 6.8 mg/dL Low 8.6 - 10. 4 mg/dL [place] Chloride [Moles/Vol] 114 mmol/L High 98 - 10 7 mmol/L [place] CO2 [Moles/Vol] 15 mmol/L Low 20 - 31 mmol/L [place] Creatinine [Mass/Vol] 0.47 mg/dL Low 0.5 - 0.9 mg/dL [place] GFR >60 >60 mL/min [place] GFR Non- >60 >60 mL/min [place] GFR/1.73 sq M predicted among non-blacks MDRD (S/P/Bld) [Vol rate/Area] [place] Comment on above: Average GFR for 20-2 9 years old: 116 mL/min/1.73sq m Chronic Kidney Disease: <60 mL/min/1.73sq m Kidney failure: <15 mL/min/1.73sq m eGFR calculated using average adult body mass. Additional eGFR calculator available at: http://www.CoffeeTable/multiple_crcl_2011.htm GFR/1.73 sq M predicted among non-blacks MDRD (S/P/Bld) [Vol rate/Area] NOT REPORTED [place] Glucose [Mass/Vol] 230 mg/dL High 70 - 99 mg/dL [place] Potassium [Moles/Vol] 3.3 mmol/L Low 3.7 - 5.3 mmol/L [place] Sodium [Moles/Vol] 136 mmol/L 135 - 144 mmol/L [place] Urea nitrogen [Mass/Vol] 5 mg/dL Low 6 - 20 mg/d L [place] CBC WITH AUTO DIFFERENTIALon 08-01-2020 Basophils (Bld) [#/Vol] 10*3/uL [place] Basophils/100 WBC (Bld) 0 % 0 - 2 % [place] Differential Type NOT REPORTED [place] Eosinophils (Bld) [#/Vol] 0.05 10*3/uL [place] Eosinophils/100 WBC (Bld) 1 % 1 - 4 % [place] Erythrocyte distribution width (RBC) [Ratio] 14.6 % High 11.8 - 14.4 % [place] Hematocrit (Bld) [Volume fraction] 30.7 % Low 36.3 - 47.1 % [place] Hemoglobin (Bld) [Mass/Vol] 10.0 g/dL Low 11.9 - 15.1 g/dL [place] Immature granulocytes (Bld) [#/Vol] 10*3/uL [place] Immature granulocytes (Bld) [#/Vol] 0 % 0 [place] Interpretation and review of laboratory results Abnormal [place] Lymphocytes (Bld) [#/Vol] 1.79 10*3/uL [place] Lymphocytes/100 WBC (Bld) 28 % 24 - 43 % [place] MCH (RBC) [Entitic mass] 26.0 pg 25. 2 - 33.5 pg [place] MCHC (RBC) [Mass/Vol] 32.6 g/dL 28.4 - 34.8 g/dL [place] MCV (RBC) [Entitic vol] 79.9 fL Low 82.6 - 102.9 fL [place] Monocytes (Bld) [#/Vol] 0.27 10*3/uL [place] Monocytes/100 WBC (Bld) 4 % 3 - 12 % [place] Platelet mean volume (Bld) [Entitic vol] 10.0 fL 8.1 - 13.5 fL [place] Platelets (Bld) [#/Vol] NOT REPORTED [place] Platelets (Bld) [#/Vol] 130 10*3/uL Low [place] RBC (Bld) [#/Vol] 3.84 10*6/uL Low 3.95 - 5.1 1 m/uL [place] RBC morphology finding Nom (Bld) ANISOCYTOSIS PRESENT [place] Comment on above: MICROCYTOSIS PRESENT Segmented neutrophils/100 WBC (Bld) 67 % High 36 - 65 % [place] Segs Absolute 4.37 [place] WBC (Bld) [#/Vol] 0.0 10*3/uL 0.0 per 10 0 WBC [place] WBC (Bld) [#/Vol] 6.5 10*3/uL [place] WBC Morphology NOT REPORTED [place] EKG 12 Leadon 08-01-2020 Atrial Rate 109 BPM [place] P [place] 23 degrees [place] P-R Interval 148 ms [place] Q-T Interval 424 ms [place] QRS Duration 78 ms [place] QTc Calculation (Bazett) 570 ms [place] R [place] 93 degrees [place] T [place] 111 degrees [place] Ventricular Rate 109 BPM [place] Wong, Mhpn Incoming Ekg Results From [facility] [place] - 08/01/2020 11:21 AM EST Sinus tachycardia Rightward axis Septal infarct , age undetermined ST & T wave abnormality, consider lateral ischemia Prolonged QT Abnormal ECG No previous ECGs available [place] Sinus tachycardia Rightward axis Septal infarct , age undetermined ST & T wave abnormality, consider lateral ischemia Prolonged QT Abnormal ECG No previous ECGs available [place] HEMOGLOBIN A1Con 08-01-2020 Glucose [Mass/Vol] 499 mg/dL [place] Comment on above: The ADA and AACC rec ommend providing the estimated average glucose result to permit better patient understanding of their HBA1c result. HbA1c (Bld) [Mass fraction] 19.0 % High 4 - 6 % [place] Interpretation and review of laboratory results Abnormal [place] Magnesiumon 08-01-2020 Magnesium [Mass/Vol] 1.7 mg/dL 1.6 - 2 .6 mg/dL [place] Magnesium [Mass/Vol] 2.0 mg/dL 1.6 - 2 .6 mg/dL [place] Magnesium [Mass/Vol] 1.7 mg/dL 1.6 - 2 .6 mg/dL [place] Magnesium [Mass/Vol] 2.0 mg/dL 1.6 - 2 .6 mg/dL [place] Magnesium [Mass/Vol] 1.8 mg/dL 1.6 - 2 .6 mg/dL [place] Otheron 08-01-2020 Interpretation and review of laboratory results Abnormal [place] Interpretation and review of laboratory results Abnormal [place] POC Glucose Fingerstickon Glucose [Mass/Vol] 174 mg/dL High 65 - 105 mg/dL [place] Interpretation and review of laboratory results Abnormal [place] Glucose [Mass/Vol] 187 mg/dL High 65 - 105 mg/dL [place] Interpretation and review of laboratory results Abnormal [place] Glucose [Mass/Vol] 104 mg/dL 65 - 105 mg/dL [place] Glucose [Mass/Vol] 295 mg/dL High 65 - 105 mg/dL [place] Interpretation and review of laboratory results Abnormal [place] , URINEon Beta HCG ( test) Ql (U) Negative NEGATIVE [place] Comment on above: Specimens with hCG [...] 2.7 mg/dL 2.6 - 4 .5 mg/dL [place] Phosphate [Mass/Vol] 2.7 mg/dL 2.6 - 4 .5 mg/dL [place] Phosphate [Mass/Vol] 2.9 mg/dL 2.6 - 4 .5 mg/dL [place] Phosphate [Mass/Vol] 2.2 mg/dL Low 2.6 - 4 .5 mg/dL [place] Phosphate [Mass/Vol] 1.6 mg/dL Low 2.6 - 4 .5 mg/dL [place] Anion Gap (Calc) POCon 07-31 Anion gap [Moles/Vol] 17 mmol/L High 7 - 16 mmol/L [place] Arterial Blood Gas, POCon Cami Test NOT REPORTED [place] aPTT Coag (Bld) [Time] NOT REPORTED [place] FIO2 30.0 [place] Mode PRVC [place] Negative Base Excess, Art 28 High [place] O2 Device/Flow/% Adult Ventilator [place] Oxygen saturation in Blood 88 % Low 94 - 98 % [place] POC HCO3 3.5 mmol/L Critically low 21 - 28 mmol/L [place] POC pCO2 18.0 Low [place] POC pCO2 Temp NOT REPORTED mm Hg [place] POC pH 6.893 Critically low [place] POC pH Temp NOT REPORTED [place] POC PO2 88.9 [place] POC pO2 Temp NOT REPORTED mm Hg [place] Positive Base Excess, Art NOT REPORTED [place] Sample Site Arterial Line [place] TCO2 (calc), Art <5 Low 22 - 29 mmol/L [place] Basic Metabolic Panelon 02-0 Anion gap [Moles/Vol] 11 mmol/L 9 - 17 mmol/L [place] Bun/Cre Ratio NOT REPORTED [place] Calcium [Mass/Vol] 7.4 mg/dL Low 8.6 - 10. 4 mg/dL [place] Chloride [Moles/Vol] 113 mmol/L High 98 - 10 7 mmol/L [place] CO2 [Moles/Vol] 14 mmol/L Low 20 - 31 mmol/L [place] Creatinine [Mass/Vol] 0.49 mg/dL Low 0.5 - 0.9 mg/dL [place] GFR >60 >60 mL/min [place] GFR Non- >60 >60 mL/min [place] GFR/1.73 sq M predicted among non-blacks MDRD (S/P/Bld) [Vol rate/Area] NOT REPORTED [place] GFR/1.73 sq M predicted among non-blacks MDRD (S/P/Bld) [Vol rate/Area] [place] Comment on above: Average GFR for 20-2 9 years old: 116 mL/min/1.73sq m Chronic Kidney Disease: <60 mL/min/1.73sq m Kidney failure: <15 mL/min/1.73sq m eGFR calculated using average adult body mass. Additional eGFR calculator available at: [email or web address]://[email or web address] Glucose [Mass/Vol] 262 mg/dL High 70 - 99 mg/dL [place] Potassium [Moles/Vol] 3.5 mmol/L Low 3.7 - 5.3 mmol/L [place] Sodium [Moles/Vol] 138 mmol/L 135 - 144 mmol/L [place] Urea nitrogen [Mass/Vol] 6 mg/dL 6 - 20 mg/d L [place] Anion gap [Moles/Vol] 9 mmol/L 9 - 17 mmol/L [place] Bun/Cre Ratio NOT REPORTED [place] Calcium [Mass/Vol] 7.8 mg/dL Low 8.6 - 10. 4 mg/dL [place] Chloride [Moles/Vol] 112 mmol/L High 98 - 10 7 mmol/L [place] CO2 [Moles/Vol] 15 mmol/L Low 20 - 31 mmol/L [place] Creatinine [Mass/Vol] 0.5 mg/dL 0.5 - 0.9 mg/dL [place] GFR >60 >60 mL/min [place] GFR Non- >60 >60 mL/min [place] GFR/1.73 sq M predicted among non-blacks MDRD (S/P/Bld) [Vol rate/Area] NOT REPORTED [place] GFR/1.73 sq M predicted among non-blacks MDRD (S/P/Bld) [Vol rate/Area] [place] Comment on above: Average GFR for 20-2 9 years old: 116 mL/min/1.73sq m Chronic Kidney Disease: <60 mL/min/1.73sq m Kidney failure: <15 mL/min/1.73sq m eGFR calculated using average adult body mass. Additional eGFR calculator available at: [email or web address]://[email or web address] Glucose [Mass/Vol] 138 mg/dL High 70 - 99 mg/dL [place] Potassium [Moles/Vol] 3.5 mmol/L Low 3.7 - 5.3 mmol/L [place] Sodium [Moles/Vol] 136 mmol/L 135 - 144 mmol/L [place] Urea nitrogen [Mass/Vol] 6 mg/dL 6 - 20 mg/d [place] Anion gap [Moles/Vol] 12 mmol/L 9 - 17 mmol/L [place] Bun/Cre Ratio NOT REPORTED [place] Calcium [Mass/Vol] 6.9 mg/dL Low 8.6 - 10. 4 mg/dL [place] Chloride [Moles/Vol] 113 mmol/L High 98 - 10 7 mmol/L [place] CO2 [Moles/Vol] 10 mmol/L Low 20 - 31 mmol/L [place] Creatinine [Mass/Vol] 0.57 mg/dL 0.5 - 0.9 mg/dL [place] GFR >60 >60 mL/min [place] GFR Non- >60 >60 mL/min [place] GFR/1.73 sq M predicted among non-blacks MDRD (S/P/Bld) [Vol rate/Area] NOT REPORTED [place] GFR/1.73 sq M predicted among non-blacks MDRD (S/P/Bld) [Vol rate/Area] [place] Comment on above: Average GFR for 20-2 9 years old: 116 mL/min/1.73sq m Chronic Kidney Disease: <60 mL/min/1.73sq m Kidney failure: <15 mL/min/1.73sq m eGFR calculated using average adult body mass. Additional eGFR calculator available at: [email or web address]://[email or web address] Glucose [Mass/Vol] 418 mg/dL Critically high 70 - 9 9 mg/dL [place] Potassium [Moles/Vol] 3.9 mmol/L 3.7 - 5.3 mmol/L [place] Comment on above: SPECIMEN SLIGHTLY HE MOLYZED, RESULTS MAY BE ADVERSELY AFFECTED. Sodium [Moles/Vol] 135 mmol/L 135 - 144 mmol/L [place] Urea nitrogen [Mass/Vol] 7 mg/dL 6 - 20 mg/d L [place] Anion gap [Moles/Vol] 8 mmol/L Low 9 - 17 mmol/L [place] Bun/Cre Ratio NOT REPORTED [place] Calcium [Mass/Vol] 7.0 mg/dL Low 8.6 - 10. 4 mg/dL [place] Chloride [Moles/Vol] 115 mmol/L High 98 - 10 7 mmol/L [place] CO2 [Moles/Vol] 15 mmol/L Low 20 - 31 mmol/L [place] Creatinine [Mass/Vol] 0.53 mg/dL 0.5 - 0.9 mg/dL [place] GFR >60 >60 mL/min [place] GFR Non- >60 >60 mL/min [place] GFR/1.73 sq M predicted among non-blacks MDRD (S/P/Bld) [Vol rate/Area] [place] Comment on above: Average GFR for 20-2 9 years old: 116 mL/min/1.73sq m Chronic Kidney Disease: <60 mL/min/1.73sq m Kidney failure: <15 mL/min/1.73sq m eGFR calculated using average adult body mass. Additional eGFR calculator available at: http://[email or web address]_[email or web address] GFR/1.73 sq M predicted among non-blacks MDRD (S/P/Bld) [Vol rate/Area] NOT REPORTED [place] Glucose [Mass/Vol] 150 mg/dL High 70 - 99 mg/dL [place] Potassium [Moles/Vol] 3.3 mmol/L Low 3.7 - 5.3 mmol/L [place] Sodium [Moles/Vol] 138 mmol/L 135 - 144 mmol/L [place] Urea nitrogen [Mass/Vol] 9 mg/dL 6 - 20 mg/d L [place] Anion gap [Moles/Vol] 7 mmol/L Low 9 - 17 mmol/L [place] Bun/Cre Ratio NOT REPORTED [place] Calcium [Mass/Vol] 6.8 mg/dL Low 8.6 - 10. 4 mg/dL [place] Chloride [Moles/Vol] 114 mmol/L High 98 - 10 7 mmol/L [place] CO2 [Moles/Vol] 16 mmol/L Low 20 - 31 mmol/L [place] Creatinine [Mass/Vol] 0.51 mg/dL 0.5 - 0.9 mg/dL [place] GFR >60 >60 mL/min [place] GFR Non- >60 >60 mL/min [place] GFR/1.73 sq M predicted among non-blacks MDRD (S/P/Bld) [Vol rate/Area] [place] Comment on above: Average GFR for 20-2 9 years old: 116 mL/min/1.73sq m Chronic Kidney Disease: <60 mL/min/1.73sq m Kidney failure: <15 mL/min/1.73sq m eGFR calculated using average adult body mass. Additional eGFR calculator available at: [email or web address]://[email or web address]_[email or web address] GFR/1.73 sq M predicted among non-blacks MDRD (S/P/Bld) [Vol rate/Area] NOT REPORTED [place] Glucose [Mass/Vol] 190 mg/dL High 70 - 99 mg/dL [place] Potassium [Moles/Vol] 3.7 mmol/L 3.7 - 5.3 mmol/L [place] Sodium [Moles/Vol] 137 mmol/L 135 - 144 mmol/L [place] Urea nitrogen [Mass/Vol] 11 mg/dL 6 - 20 mg/d L [place] Anion gap [Moles/Vol] 6 mmol/L Low 9 - 17 mmol/L [place] Bun/Cre Ratio NOT REPORTED [place] Calcium [Mass/Vol] 6.9 mg/dL Low 8.6 - 10. 4 mg/dL [place] Chloride [Moles/Vol] 115 mmol/L High 98 - 10 7 mmol/L [place] CO2 [Moles/Vol] 17 mmol/L Low 20 - 31 mmol/L [place] Creatinine [Mass/Vol] 0.56 mg/dL 0.5 - 0.9 mg/dL [place] GFR >60 >60 mL/min [place] GFR Non- >60 >60 mL/min [place] GFR/1.73 sq M predicted among non-blacks MDRD (S/P/Bld) [Vol rate/Area] NOT REPORTED [place] GFR/1.73 sq M predicted among non-blacks MDRD (S/P/Bld) [Vol rate/Area] [place] Comment on above: Average GFR for 20-2 9 years old: 116 mL/min/1.73sq m Chronic Kidney Disease: <60 mL/min/1.73sq m Kidney failure: <15 mL/min/1.73sq m eGFR calculated using average adult body mass. Additional eGFR calculator available at: http://[email or web address]/multiple_crcl_[email or web address] Glucose [Mass/Vol] 180 mg/dL High 70 - 99 mg/dL [place] Potassium [Moles/Vol] 3.9 mmol/L 3.7 - 5.3 mmol/L [place] Sodium [Moles/Vol] 138 mmol/L 135 - 144 mmol/L [place] Urea nitrogen [Mass/Vol] 11 mg/dL 6 - 20 mg/d L [place] CALCIUM, IONIC (POC)on 07-31 POC Ionized Calcium 1.07 mmol/L Low 1.15 - 1 .33 mmol/L [place] CHLORIDE (POC)on 07-31-2020 Chloride [Moles/Vol] 116 mmol/L High 98 - 10 7 mmol/L [place] Creatinine W/GFR Point of Ca reon 07-31-2020 Creatinine [Mass/Vol] 0.78 mg/dL 0.51 - 1.19 mg/dL [place] GFR Non- >60 >60 mL/min [place] GFR/1.73 sq M predicted among non-blacks MDRD (S/P/Bld) [Vol rate/Area] mL/min/{1.73_m2} >60 mL/min [place] GFR/1.73 sq M predicted among non-blacks MDRD (S/P/Bld) [Vol rate/Area] [place] Comment on above: Average GFR for 20-2 9 years old: 116 mL/min/1.73sq m Chronic Kidney Disease: <60 mL/min/1.73sq m Kidney failure: <15 mL/min/1.73sq m eGFR calculated using average adult body mass. Additional eGFR calculator available at: http://[email or web address]_[email or web address] Hemoglobin and hematocrit, b loodon 07-31-2020 Hematocrit (Bld) [Volume fraction] 44 % 36 - 46 % [place] Hemoglobin (Bld) [Mass/Vol] 14.9 g/dL 12 - 16 g/dL [place] Lactic Acid, POCon POC Lactic Acid 0.60 mmol/L 0.56 - 1.39 mmol/L [place] Magnesiumon 07-31-2020 Magnesium [Mass/Vol] 1.9 mg/dL 1.6 - 2 .6 mg/dL [place] Magnesium [Mass/Vol] 2.2 mg/dL 1.6 - 2 .6 mg/dL [place] Magnesium [Mass/Vol] 1.4 mg/dL Low 1.6 - 2 .6 mg/dL [place] Magnesium [Mass/Vol] 1.7 mg/dL 1.6 - 2 .6 mg/dL [place] Magnesium [Mass/Vol] 1.7 mg/dL 1.6 - 2 .6 mg/dL [place] Magnesium [Mass/Vol] 1.8 mg/dL 1.6 - 2 .6 mg/dL [place] Otheron 07-31-2020 Interpretation and review of laboratory results Abnormal [place] Interpretation and review of laboratory results Abnormal [place] Interpretation and review of laboratory results Abnormal [place] Interpretation and review of laboratory results Abnormal [place] Interpretation and review of laboratory results Abnormal [place] Interpretation and review of laboratory results Abnormal [place] Interpretation and review of laboratory results Abnormal [place] POC Glucose Fingerstickon Glucose [Mass/Vol] 201 mg/dL High 65 - 105 mg/dL [place] Interpretation and review of laboratory results Abnormal [place] Glucose [Mass/Vol] 162 mg/dL High 65 - 105 mg/dL [place] Interpretation and review of laboratory results Abnormal [place] Glucose [Mass/Vol] 124 mg/dL High 65 - 105 mg/dL [place] Interpretation and review of laboratory results Abnormal [place] Glucose [Mass/Vol] 117 mg/dL High 65 - 105 mg/dL [place] Interpretation and review of laboratory results Abnormal [place] Glucose [Mass/Vol] 137 mg/dL High 65 - 105 mg/dL [place] Interpretation and review of laboratory results Abnormal [place] Glucose [Mass/Vol] 173 mg/dL High 65 - 105 mg/dL [place] Interpretation and review of laboratory results Abnormal [place] Glucose [Mass/Vol] 266 mg/dL High 65 - 105 mg/dL [place] Interpretation and review of laboratory results Abnormal [place] Glucose [Mass/Vol] 320 mg/dL High 65 - 105 mg/dL [place] Interpretation and review of laboratory results Abnormal [place] Glucose [Mass/Vol] 400 mg/dL High 65 - 105 mg/dL [place] Interpretation and review of laboratory results Abnormal [place] Glucose [Mass/Vol] 157 mg/dL High 65 - 105 mg/dL [place] Interpretation and review of laboratory results Abnormal [place] Glucose [Mass/Vol] 130 mg/dL High 65 - 105 mg/dL [place] Interpretation and review of laboratory results Abnormal [place] Glucose [Mass/Vol] 139 mg/dL High 65 - 105 mg/dL [place] Interpretation and review of laboratory results Abnormal [place] Glucose [Mass/Vol] 156 mg/dL High 65 - 105 mg/dL [place] Interpretation and review of laboratory results Abnormal [place] Glucose [Mass/Vol] 193 mg/dL High 65 - 105 mg/dL [place] Interpretation and review of laboratory results Abnormal [place] Glucose [Mass/Vol] 207 mg/dL High 65 - 105 mg/dL [place] Interpretation and review of laboratory results Abnormal [place] Glucose [Mass/Vol] 211 mg/dL High 65 - 105 mg/dL [place] Interpretation and review of laboratory results Abnormal [place] Glucose [Mass/Vol] 167 mg/dL High 65 - 105 mg/dL [place] Interpretation and review of laboratory results Abnormal [place] Glucose [Mass/Vol] 145 mg/dL High 65 - 105 mg/dL [place] Interpretation and review of laboratory results Abnormal [place] Glucose [Mass/Vol] 156 mg/dL High 65 - 105 mg/dL [place] Interpretation and review of laboratory results Abnormal [place] Glucose [Mass/Vol] 171 mg/dL High 65 - 105 mg/dL [place] Interpretation and review of laboratory results Abnormal [place] Glucose [Mass/Vol] 165 mg/dL High 65 - 105 mg/dL [place] Interpretation and review of laboratory results Abnormal [place] Glucose [Mass/Vol] 144 mg/dL High 65 - 105 mg/dL [place] Interpretation and review of laboratory results Abnormal [place] POCT Glucoseon 07-31-2020 Glucose [Mass/Vol] 372 mg/dL High 74 - 100 mg/dL [place] POTASSIUM (POC)on 07-31-2020 Potassium [Moles/Vol] 3.9 mmol/L 3.5 - 4.5 mmol/L [place] Phosphoruson 07-31-2020 Phosphate [Mass/Vol] 1.9 mg/dL Low 2.6 - 4 .5 mg/dL [place] Phosphate [Mass/Vol] 1.7 mg/dL Low 2.6 - 4 .5 mg/dL [place] Phosphate [Mass/Vol] 1.8 mg/dL Low 2.6 - 4 .5 mg/dL [place] Phosphate [Mass/Vol] 1.5 mg/dL Low 2.6 - 4 .5 mg/dL [place] Phosphate [Mass/Vol] 1.7 mg/dL Low 2.6 - 4 .5 mg/dL [place] Phosphate [Mass/Vol] 1.5 mg/dL Low 2.6 - 4 .5 mg/dL [place] SODIUM (POC)on 07-31-2020 Sodium [Moles/Vol] 136 mmol/L Low 138 - 146 mmol/L [place] Acetaminophen Levelon 2020 Acetaminophen [Mass/Vol] <5 Low 10 - 30 ug/mL [place] Interpretation and review of laboratory results Abnormal [place] Arterial Blood Gas, POCon Cami Test NOT REPORTED [place] aPTT Coag (Bld) [Time] NOT REPORTED [place] FIO2 35.0 [place] Interpretation and review of laboratory results Abnormal [place] Mode NOT REPORTED [place] Negative Base Excess, Art 10 High [place] O2 Device/Flow/% BIPAP [place] Oxygen saturation in Blood 98 % 94 - 98 % [place] POC HCO3 12.9 mmol/L Low 21 - 28 mmol/L [place] POC pCO2 20.8 Low [place] POC pCO2 Temp NOT REPORTED mm Hg [place] POC pH 7.402 [place] POC pH Temp NOT REPORTED [place] POC PO2 98.2 [place] POC pO2 Temp NOT REPORTED mm Hg [place] Positive Base Excess, Art NOT REPORTED [place] Sample Site Arterial Line [place] TCO2 (calc), Art 14 mmol/L Low 22 - 29 mmol/L [place] Cami Test NOT REPORTED [place] aPTT Coag (Bld) [Time] 37.1 s [place] FIO2 40.0 [place] Mode Bi-Level Ventilation [place] Negative Base Excess, Art 16 High [place] O2 Device/Flow/% BIPAP [place] Oxygen saturation in Blood 96 % 94 - 98 % [place] POC HCO3 7.0 mmol/L Critically low 21 - 28 mmol/L [place] POC pCO2 14.0 Low [place] POC pCO2 Temp NOT REPORTED mm Hg [place] POC pH 7.310 Low [place] POC pH Temp NOT REPORTED [place] POC PO2 86.1 [place] POC pO2 Temp NOT REPORTED mm Hg [place] Positive Base Excess, Art NOT REPORTED [place] Sample Site Arterial Line [place] TCO2 (calc), Art 7 mmol/L Low 22 - 29 mmol/L [place] Cami Test NOT REPORTED [place] aPTT Coag (Bld) [Time] 36.3 s Me [place] FIO2 50.0 [place] Mode Bi-Level Ventilation [place] Negative Base Excess, Art 22 High [place] O2 Device/Flow/% BIPAP [place] Oxygen saturation in Blood 96 % 94 - 98 % [place] POC HCO3 5.2 mmol/L Critically low 21 - 28 mmol/L [place] POC pCO2 16.0 Low [place] POC pCO2 Temp NOT REPORTED mm Hg [place] POC pH 7.123 Critically low [place] POC pH Temp NOT REPORTED [place] POC PO2 109.8 [place] POC pO2 Temp NOT REPORTED mm Hg [place] Positive Base Excess, Art NOT REPORTED [place] Sample Site Arterial Line [place] TCO2 (calc), Art 6 mmol/L Low 22 - 29 mmol/L [place] Cami Test NOT REPORTED [place] aPTT Coag (Bld) [Time] 36.1 s [place] FIO2 30.0 [place] Mode NOT REPORTED [place] Negative Base Excess, Art 24 High [place] O2 Device/Flow/% Adult Ventilator [place] Oxygen saturation in Blood 89 % Low 94 - 98 % [place] POC HCO3 4.3 mmol/L Critically low 21 - 28 mmol/L [place] POC pCO2 14.4 Low [place] POC pCO2 Temp NOT REPORTED mm Hg [place] POC pH 7.082 Critically low [place] POC pH Temp NOT REPORTED [place] POC PO2 75.9 Low [place] POC pO2 Temp NOT REPORTED mm Hg [place] Positive Base Excess, Art NOT REPORTED [place] Sample Site Arterial Line [place] TCO2 (calc), Art <5 Low 22 - 29 mmol/L [place] Basic Metabolic Panelon 07-02 Anion gap [Moles/Vol] 5 mmol/L Low 9 - 17 mmol/L [place] Bun/Cre Ratio NOT REPORTED [place] Calcium [Mass/Vol] 6.9 mg/dL Low 8.6 - 10. 4 mg/dL [place] Chloride [Moles/Vol] 113 mmol/L High 98 - 10 7 mmol/L [place] CO2 [Moles/Vol] 17 mmol/L Low 20 - 31 mmol/L [place] Creatinine [Mass/Vol] 0.51 mg/dL 0.5 - 0.9 mg/dL [place] GFR >60 >60 mL/min [place] GFR Non- >60 >60 mL/min [place] GFR/1.73 sq M predicted among non-blacks MDRD (S/P/Bld) [Vol rate/Area] NOT REPORTED [place] GFR/1.73 sq M predicted among non-blacks MDRD (S/P/Bld) [Vol rate/Area] [place] Comment on above: Average GFR for 20-2 9 years old: 116 mL/min/1.73sq m Chronic Kidney Disease: <60 mL/min/1.73sq m Kidney failure: <15 mL/min/1.73sq m eGFR calculated using average adult body mass. Additional eGFR calculator available at: http://[email or web address]_[email or web address] Glucose [Mass/Vol] 175 mg/dL High 70 - 99 mg/dL [place] Potassium [Moles/Vol] 3.4 mmol/L Low 3.7 - 5.3 mmol/L [place] Sodium [Moles/Vol] 135 mmol/L 135 - 144 mmol/L [place] Urea nitrogen [Mass/Vol] 14 mg/dL 6 - 20 mg/d L [place] Anion gap [Moles/Vol] 6 mmol/L Low 9 - 17 mmol/L [place] Bun/Cre Ratio NOT REPORTED [place] Calcium [Mass/Vol] 7.1 mg/dL Low 8.6 - 10. 4 mg/dL [place] Chloride [Moles/Vol] 115 mmol/L High 98 - 10 7 mmol/L [place] CO2 [Moles/Vol] 18 mmol/L Low 20 - 31 mmol/L [place] Creatinine [Mass/Vol] 0.59 mg/dL 0.5 - 0.9 mg/dL [place] GFR >60 >60 mL/min [place] GFR Non- >60 >60 mL/min [place] GFR/1.73 sq M predicted among non-blacks MDRD (S/P/Bld) [Vol rate/Area] NOT REPORTED [place] GFR/1.73 sq M predicted among non-blacks MDRD (S/P/Bld) [Vol rate/Area] [place] Comment on above: Average GFR for 20-2 9 years old: 116 mL/min/1.73sq m Chronic Kidney Disease: <60 mL/min/1.73sq m Kidney failure: <15 mL/min/1.73sq m eGFR calculated using average adult body mass. Additional eGFR calculator available at: http://[email or web address]_[email or web address] Glucose [Mass/Vol] 113 mg/dL High 70 - 99 mg/dL [place] Potassium [Moles/Vol] 3.2 mmol/L Low 3.7 - 5.3 mmol/L [place] Sodium [Moles/Vol] 139 mmol/L 135 - 144 mmol/L [place] Urea nitrogen [Mass/Vol] 17 mg/dL 6 - 20 mg/d L [place] Anion gap [Moles/Vol] 9 mmol/L 9 - 17 mmol/L [place] Bun/Cre Ratio NOT REPORTED [place] Calcium [Mass/Vol] 7.0 mg/dL Low 8.6 - 10. 4 mg/dL [place] Chloride [Moles/Vol] 114 mmol/L High 98 - 10 7 mmol/L [place] CO2 [Moles/Vol] 17 mmol/L Low 20 - 31 mmol/L [place] Creatinine [Mass/Vol] 0.78 mg/dL 0.5 - 0.9 mg/dL [place] GFR >60 >60 mL/min [place] GFR Non- >60 >60 mL/min [place] GFR/1.73 sq M predicted among non-blacks MDRD (S/P/Bld) [Vol rate/Area] [place] Comment on above: Average GFR for 20-2 9 years old: 116 mL/min/1.73sq m Chronic Kidney Disease: <60 mL/min/1.73sq m Kidney failure: <15 mL/min/1.73sq m eGFR calculated using average adult body mass. Additional eGFR calculator available at: http://[email or web address]_[email or web address] GFR/1.73 sq M predicted among non-blacks MDRD (S/P/Bld) [Vol rate/Area] NOT REPORTED [place] Glucose [Mass/Vol] 132 mg/dL High 70 - 99 mg/dL [place] Potassium [Moles/Vol] 3.1 mmol/L Low 3.7 - 5.3 mmol/L [place] Sodium [Moles/Vol] 140 mmol/L 135 - 144 mmol/L [place] Urea nitrogen [Mass/Vol] 20 mg/dL 6 - 20 mg/d L [place] Anion gap [Moles/Vol] 9 mmol/L 9 - 17 mmol/L [place] Bun/Cre Ratio NOT REPORTED [place] Calcium [Mass/Vol] 7.1 mg/dL Low 8.6 - 10. 4 mg/dL [place] Chloride [Moles/Vol] 113 mmol/L High 98 - 10 7 mmol/L [place] CO2 [Moles/Vol] 17 mmol/L Low 20 - 31 mmol/L [place] Creatinine [Mass/Vol] 0.81 mg/dL 0.5 - 0.9 mg/dL [place] GFR >60 >60 mL/min [place] GFR Non- >60 >60 mL/min [place] GFR/1.73 sq M predicted among non-blacks MDRD (S/P/Bld) [Vol rate/Area] [place] Comment on above: Average GFR for 20-2 9 years old: 116 mL/min/1.73sq m Chronic Kidney Disease: <60 mL/min/1.73sq m Kidney failure: <15 mL/min/1.73sq m eGFR calculated using average adult body mass. Additional eGFR calculator available at: [email or web address]_[email or web address] GFR/1.73 sq M predicted among non-blacks MDRD (S/P/Bld) [Vol rate/Area] NOT REPORTED [place] Glucose [Mass/Vol] 238 mg/dL High 70 - 99 mg/dL [place] Potassium [Moles/Vol] 2.4 mmol/L Critically low 3.7 - 5.3 mmol/L [place] Sodium [Moles/Vol] 139 mmol/L 135 - 144 mmol/L [place] Urea nitrogen [Mass/Vol] 23 mg/dL High 6 - 20 mg/d L [place] Anion gap [Moles/Vol] 23 mmol/L High 9 - 17 mmol/L [place] Bun/Cre Ratio NOT REPORTED [place] Calcium [Mass/Vol] 7.2 mg/dL Low 8.6 - 10. 4 mg/dL [place] Chloride [Moles/Vol] 111 mmol/L High 98 - 10 7 mmol/L [place] CO2 [Moles/Vol] 8 mmol/L Critically low 20 - 31 mmol/L [place] Creatinine [Mass/Vol] 1.08 mg/dL High 0.5 - 0.9 mg/dL [place] GFR >60 >60 mL/min [place] GFR Non- >60 >60 mL/min [place] GFR/1.73 sq M predicted among non-blacks MDRD (S/P/Bld) [Vol rate/Area] [place] Comment on above: Average GFR for 20-2 9 years old: 116 mL/min/1.73sq m Chronic Kidney Disease: <60 mL/min/1.73sq m Kidney failure: <15 mL/min/1.73sq m eGFR calculated using average adult body mass. Additional eGFR calculator available at: [email or web address]_[email or web address] GFR/1.73 sq M predicted among non-blacks MDRD (S/P/Bld) [Vol rate/Area] NOT REPORTED [place] Glucose [Mass/Vol] 322 mg/dL High 70 - 99 mg/dL [place] Potassium [Moles/Vol] 3.8 mmol/L 3.7 - 5.3 mmol/L [place] Sodium [Moles/Vol] 142 mmol/L 135 - 144 mmol/L [place] Urea nitrogen [Mass/Vol] 28 mg/dL High 6 - 20 mg/d L [place] Anion gap [Moles/Vol] Unable to calculat e anion gap due to CO2 less than 6. 9 - 17 mmol/L [place] Bun/Cre Ratio NOT REPORTED [place] Calcium [Mass/Vol] 6.9 mg/dL Low 8.6 - 10. 4 mg/dL [place] Chloride [Moles/Vol] 109 mmol/L High 98 - 10 7 mmol/L [place] CO2 [Moles/Vol] mmol/L Critically low 20 - 31 mmol/L [place] Creatinine [Mass/Vol] 0.89 mg/dL 0.5 - 0.9 mg/dL [place] GFR >60 >60 mL/min [place] GFR Non- >60 >60 mL/min [place] GFR/1.73 sq M predicted among non-blacks MDRD (S/P/Bld) [Vol rate/Area] NOT REPORTED [place] GFR/1.73 sq M predicted among non-blacks MDRD (S/P/Bld) [Vol rate/Area] [place] Comment on above: Average GFR for 20-2 9 years old: 116 mL/min/1.73sq m Chronic Kidney Disease: <60 mL/min/1.73sq m Kidney failure: <15 mL/min/1.73sq m eGFR calculated using average adult body mass. Additional eGFR calculator available at: http://[email or web address] Solution/multiple_crcl_2012.htm Glucose [Mass/Vol] 275 mg/dL High 70 - 99 mg/dL [place], [place] Interpretation and review of laboratory results Abnormal [place] Potassium [Moles/Vol] 3.4 mmol/L Low 3.7 - 5.3 mmol/L [place] Sodium [Moles/Vol] 139 mmol/L 135 - 144 mmol/L [place] Urea nitrogen [Mass/Vol] 29 mg/dL High 6 - 20 mg/d L [place] CBC WITH AUTO DIFFERENTIALon 07-30-2020 Basophils (Bld) [#/Vol] 0.00 10*3/uL [place] Basophils/100 WBC (Bld) 0 % 0 - 2 % [place] Differential Type NOT REPORTED [place] Eosinophils (Bld) [#/Vol] 0.00 10*3/uL [place] Eosinophils/100 WBC (Bld) 0 % Low 1 - 4 % [place] Erythrocyte distribution width (RBC) [Ratio] 13.2 % 11.8 - 14.4 % [place] Hematocrit (Bld) [Volume fraction] 38.1 % 36.3 - 47.1 % [place] Hemoglobin (Bld) [Mass/Vol] 12.9 g/dL 11.9 - 15.1 g/dL [place] Immature granulocytes (Bld) [#/Vol] 2 % High 0 [place] Immature granulocytes (Bld) [#/Vol] 0.28 10*3/uL [place] Interpretation and review of laboratory results Abnormal [place] Lymphocytes (Bld) [#/Vol] 0.70 10*3/uL [place] Lymphocytes/100 WBC (Bld) 5 % Low 24 - 43 % [place] MCH (RBC) [Entitic mass] 26.2 pg 25. 2 - 33.5 pg [place] MCHC (RBC) [Mass/Vol] 33.9 g/dL 28.4 - 34.8 g/dL [place] MCV (RBC) [Entitic vol] 77.3 fL Low 82.6 - 102.9 fL [place] Monocytes (Bld) [#/Vol] 0.56 10*3/uL [place] Monocytes/100 WBC (Bld) 4 % 3 - 12 % [place] Morphology Calvin (Bld) [Interp] MICROCYTOSIS [place] Morphology Calvin (Bld) [Interp] ANISOCYTOSIS [place] Platelet mean volume (Bld) [Entitic vol] 9.8 fL 8.1 - 13.5 fL [place] Platelets (Bld) [#/Vol] 228 10*3/uL [place] Platelets (Bld) [#/Vol] NOT REPORTED [place] RBC (Bld) [#/Vol] 4.93 10*6/uL 3.95 - 5.1 1 m/uL [place] RBC morphology finding Nom (Bld) NOT REPORTED [place] Segmented neutrophils/100 WBC (Bld) 89 % High 36 - 65 % [place] Segs Absolute 12.36 [place] WBC (Bld) [#/Vol] 0.0 10*3/uL 0.0 per 10 0 WBC [place] WBC (Bld) [#/Vol] 13.9 10*3/uL [place] WBC Morphology NOT REPORTED [place] Ethanolon 07-30-2020 Ethanol [Mass/Vol] mg/dL <10 mg/dL [place] Ethanol percent <0.010 <0.010 % [place] Hepatic Function Panelon Albumin [Mass/Vol] 3 g/dL Low 3.5 - 5.2 g/dL [place] Albumin/Globulin [Mass ratio] 1.3 {ratio} [place] ALP [Catalytic activity/Vol] 103 U/L 35 - 104 U/L [place] ALT [Catalytic activity/Vol] 16 U/L 5 - 33 U/L [place] AST [Catalytic activity/Vol] 39 U/L High <32 [place] Bilirubin Ql (U) <0.10 Low 0.3 - 1.2 mg/dL [place] Bilirubin, Indirect CANNOT BE CALCULATED 0 - 1 mg/dL [place] Bilirubin.direct [Mass/Vol] mg/dL <0.31 mg/dL [place] Globulin (S) [Mass/Vol] NOT REPORTED 1.5 - 3.8 g/dL [place] Interpretation and review of laboratory results Abnormal [place] Protein [Mass/Vol] 5.3 g/dL Low 6.4 - 8.3 g/dL [place] Lactic Acid, POCon POC Lactic Acid 0.87 mmol/L 0.56 - 1.39 mmol/L [place] POC Lactic Acid 0.80 mmol/L 0.56 - 1.39 mmol/L [place] POC Lactic Acid 0.79 mmol/L 0.56 - 1.39 mmol/L [place] Lipaseon 07-30-2020 Lipase [Catalytic activity/Vol] 24 U/L 13 - 60 U/L [place] MRSA by PCRon 07-30-2020 Direct Exam POSITIVE: MRSA DNA detected by nucleic acid amplification. Results should be used as an adjunct to nosocomial control efforts to identify patients needing enhanced precautions. The test is not intended to identify patients with staphylococcal infections. Results should not be used to guide or monitor treatment for MRSA infections. Abnormal [place] Interpretation and review of laboratory results Abnormal [place] Special Requests NOT REPORTED [place] Specimen Description .NASAL SWAB [place] Magnesiumon 07-30-2020 Magnesium [Mass/Vol] 1.6 mg/dL 1.6 - 2 .6 mg/dL [place] Magnesium [Mass/Vol] 1.8 mg/dL 1.6 - 2 .6 mg/dL [place] Magnesium [Mass/Vol] 2.0 mg/dL 1.6 - 2 .6 mg/dL [place] Magnesium [Mass/Vol] 2.0 mg/dL 1.6 - 2 .6 mg/dL [place] Magnesium [Mass/Vol] 1.6 mg/dL 1.6 - 2 .6 mg/dL [place] Magnesium [Mass/Vol] 1.6 mg/dL 1.6 - 2 .6 mg/dL [place] Microscopic Urinalysison Amorphous, UA 1+ Abnormal None [place] Bacteria, UA NOT REPORTED None [place] Casts UA HYALINE [place] Casts UA 0 TO 2 [place] Crystals, UA NOT REPORTED None /HPF [place] Epithelial Cells UA 5 TO 10 [place] Interpretation and review of laboratory results Abnormal [place] Mucus, UA NOT REPORTED None [place] Other Observations UA NOT REPORTED NOT REQ. [place] RBC (U) [#/Vol] 0 TO 2 [place] Renal Epithelial, UA NOT REPORTED 0 /HPF [place] Trichomonas, UA NOT REPORTED None [place] WBC, UA 2 TO 5 [place] Yeast, UA NOT REPORTED None [place] Otheron 07-30-2020 Interpretation and review of laboratory results Abnormal [place] Interpretation and review of laboratory results Abnormal [place] Interpretation and review of laboratory results Abnormal [place] Interpretation and review of laboratory results Abnormal [place] Interpretation and review of laboratory results Abnormal [place] Interpretation and review of laboratory results Abnormal [place] Interpretation and review of laboratory results Abnormal [place] Interpretation and review of laboratory results Abnormal [place] POC Glucose Fingerstickon Glucose [Mass/Vol] 148 mg/dL High 65 - 105 mg/dL [place] Interpretation and review of laboratory results Abnormal [place] Glucose [Mass/Vol] 170 mg/dL High 65 - 105 mg/dL [place] Interpretation and review of laboratory results Abnormal [place] Glucose [Mass/Vol] 156 mg/dL High 65 - 105 mg/dL [place] Interpretation and review of laboratory results Abnormal [place] Glucose [Mass/Vol] 140 mg/dL High 65 - 105 mg/dL [place] Interpretation and review of laboratory results Abnormal [place] Glucose [Mass/Vol] 109 mg/dL High 65 - 105 mg/dL [place] Interpretation and review of laboratory results Abnormal [place] Glucose [Mass/Vol] 112 mg/dL High 65 - 105 mg/dL [place] Interpretation and review of laboratory results Abnormal [place] Glucose [Mass/Vol] 111 mg/dL High 65 - 105 mg/dL [place] Interpretation and review of laboratory results Abnormal [place] Glucose [Mass/Vol] 130 mg/dL High 65 - 105 mg/dL [place] Interpretation and review of laboratory results Abnormal [place] Glucose [Mass/Vol] 143 mg/dL High 65 - 105 mg/dL [place] Interpretation and review of laboratory results Abnormal [place] Glucose [Mass/Vol] 126 mg/dL High 65 - 105 mg/dL [place] Interpretation and review of laboratory results Abnormal [place] Glucose [Mass/Vol] 126 mg/dL High 65 - 105 mg/dL [place] Interpretation and review of laboratory results Abnormal [place] Glucose [Mass/Vol] 174 mg/dL High 65 - 105 mg/dL [place] Interpretation and review of laboratory results Abnormal [place] Glucose [Mass/Vol] 214 mg/dL High 65 - 105 mg/dL [place] Interpretation and review of laboratory results Abnormal [place] Glucose [Mass/Vol] 214 mg/dL High 65 - 105 mg/dL [place] Interpretation and review of laboratory results Abnormal [place] Glucose [Mass/Vol] 252 mg/dL High 65 - 105 mg/dL [place] Interpretation and review of laboratory results Abnormal [place] Glucose [Mass/Vol] 281 mg/dL High 65 - 105 mg/dL [place] Interpretation and review of laboratory results Abnormal [place] Glucose [Mass/Vol] 291 mg/dL High 65 - 105 mg/dL [place] Interpretation and review of laboratory results Abnormal [place] Glucose [Mass/Vol] 283 mg/dL High 65 - 105 mg/dL [place] Interpretation and review of laboratory results Abnormal [place] Glucose [Mass/Vol] 275 mg/dL High 65 - 105 mg/dL [place] Interpretation and review of laboratory results Abnormal [place] Glucose [Mass/Vol] 264 mg/dL High 65 - 105 mg/dL [place] Interpretation and review of laboratory results Abnormal [place] Glucose [Mass/Vol] 270 mg/dL High 65 - 105 mg/dL [place] Interpretation and review of laboratory results Abnormal [place] Glucose [Mass/Vol] 244 mg/dL High 65 - 105 mg/dL [place] Interpretation and review of laboratory results Abnormal [place] Glucose [Mass/Vol] 226 mg/dL High 65 - 105 mg/dL [place] Interpretation and review of laboratory results Abnormal [place] Glucose [Mass/Vol] 272 mg/dL High 65 - 105 mg/dL [place] Interpretation and review of laboratory results Abnormal [place] Glucose [Mass/Vol] 290 mg/dL High 65 - 105 mg/dL [place] Interpretation and review of laboratory results Abnormal [place] POCT Glucoseon 07-30-2020 Glucose [Mass/Vol] 296 mg/dL High 74 - 100 mg/dL [place] Glucose [Mass/Vol] 284 mg/dL High 74 - 100 mg/dL [place] Glucose [Mass/Vol] 325 mg/dL High 74 - 100 mg/dL [place] POTASSIUMon 07-30-2020 Potassium [Moles/Vol] 4.4 mmol/L 3.7 - 5.3 mmol/L [place] Comment on above: SPECIMEN SLIGHTLY HE MOLYZED, RESULTS MAY BE ADVERSELY AFFECTED. Potassium [Moles/Vol] 3.8 mmol/L 3.7 - 5.3 mmol/L [place] Phosphoruson 07-30-2020 Phosphate [Mass/Vol] 1.7 mg/dL Low 2.6 - 4 .5 mg/dL [place] Phosphate [Mass/Vol] 1.7 mg/dL Low 2.6 - 4 .5 mg/dL [place] Phosphate [Mass/Vol] 1.7 mg/dL Low 2.6 - 4 .5 mg/dL [place] Phosphate [Mass/Vol] 0.6 mg/dL Critically low 2.6 - 4.5 mg/dL [place] Phosphate [Mass/Vol] 0.5 mg/dL Critically low 2.6 - 4.5 mg/dL [place] Interpretation and review of laboratory results Abnormal [place] Phosphate [Mass/Vol] 1.1 mg/dL Low 2.6 - 4 .5 mg/dL [place] SPECIMEN REJECTIONon 021 Ordered Test [id number] [place] Reason for Rejection Unable to perform testing: Specimen quantity not sufficient. [place] Specimen source Nom (Unsp spec) .BLOOD [place] - NOT REPORTED [place] Salicylateon 07-30-2020 Interpretation and review of laboratory results Abnormal [place] Salicylate Lvl 1 mg/dL Low 3 - 10 mg/dL [place] TOXIC TRICYCLIC SC,Bon 07-30 Toxic Tricyclic Sc,Blood Negative NEGATIVE [place] TSH with Reflexon 07-30-2020 TSH Qn 0.35 m[IU]/L [place] Urinalysis Reflex to Culture on 07-30-2020 Bilirubin Urine Negative NEGATIVE [place] Color, UA YELLOW YELLOW [place] Glucose, Ur 3+ Abnormal NEGATIVE [place] Interpretation and review of laboratory results Abnormal [place] Ketones Ql (U) LARGE Abnormal NEGATIVE [place] Leukocyte esterase Test strip Ql (U) TRACE Abnormal NEGATIVE [place] Nitrite, Urine Negative NEGATIVE [place] pH, UA 5.0 [place] Protein (U) [Mass/Vol] 2+ Abnormal NEGATIVE [place] Specific Clements, UA 1.019 [place] Turbidity UA CLOUDY Abnormal CLEAR [place] Urinalysis Comments NOT REPORTED [place] Urine Hgb MODERATE Abnormal NEGATIVE [place] Urobilinogen, Urine Normal Normal [place] Urine Drug Screenon 07-30-19 21 Amphetamine Screen, Ur Negative NEGATIVE [place] Comment on above: (Positive cutoff 1000 ng/mL) Barbiturate Screen, Ur Negative NEGATIVE [place] Comment on above: (Positive cutoff 200 ng/mL) Benzodiazepine Screen, Urine Negative NEGATIVE [place] Comment on above: (Positive cutoff 200 ng/mL) Buprenorphine Urine NOT REPORTED NEGATIVE [place] Cannabinoid Scrn, Ur Negative NEGATIVE [place] Comment on above: (Positive cutoff 50 ng/mL) Cocaine Metabolite, Urine Negative NEGATIVE [place] Comment on above: (Positive cutoff 300 ng/mL) MDMA, Urine NOT REPORTED [place]GATIVE [place] Methadone Screen, Urine Negative NEGATIVE [place] Comment on above: (Positive cutoff 300 ng/mL) Methamphetamine, Urine NOT REPORTED NEGATIVE [place] Opiates, Urine Negative NEGATIVE [place] Comment on above: (Positive cutoff 300 ng/mL) Oxycodone Screen, Ur Negative NEGATIVE [place] Comment on above: (Positive cutoff 100 ng/mL) Phencyclidine, Urine Negative NEGATIVE [place] Comment on above: (Positive cutoff 25 ng/mL) Propoxyphene, Urine NOT REPORTED NEGATIVE [place] Test Information Assay provides medical screening only. The absence of expected drug(s) and/or metabolite(s) may indicate diluted or adulterated urine, limitations of testing or timing of collection. [place] Comment on above: Testing for legal pu rposes should be confirmed by another method. To request confirmation of test result, please call the lab within 7 days of sample submission. Tricyclic Antidepressants, Urine NOT REPORTED [facility]IVE [facility] 21 Wong, Mhpn Incoming Radiant Results From [email or web address] Application[employer]/Pacs - 07/30/2020 2:54 AM EST EXAMINATION: ONE [...] with the tip in the distal SVC. [place] EXAMINATION: ONE XRAY VIEW OF THE [...] line with tip in the distal SVC. [facility] ANTHONY Scattered bilateral infiltrates most pronounced in the right lower lobe consistent with pneumonia. Right internal jugular line with the tip in the distal SVC. [facility] [place] ACETAMINOPHENon 07-29-2020 Acetaminophen [Mass/Vol] <10.0 Critically low 10.1-30 .0 [facility] Comment on above: Performed By: #### D RUGRPD #### [facility] [address] [address] Alfie Mederos ACETONE SERUMon 07-29-2020 ACETONE SMALL Abnormal NEGATIVE [facility] Comment on above: Performed By: #### A CETON #### [facility] [address] [place], [place] [address] Alfie Mederos BLOOD GAS, VENOUSon 07-29-19 21 Cami Test NOT REPORTED [facility] aPTT Coag (Bld) [Time] 37.0 s Me [facility] Carboxyhemoglobin 0.6 % 0 - 5 % [facility] Comment on above: Reference Range: Non-Smokers 0-2% Average Smoker 2-4% Heavy Smoker <10% FIO2 ROOM AIR [facility] HCO3, Venous 4.2 mmol/L Low 24 - 30 mmol/L [facility] Interpretation and review of laboratory results Abnormal [facility] Methemoglobin NOT REPORTED 0 - 1.5 % [facility] Mode NOT REPORTED [facility] Negative Base Excess, Denis NOT REPORTED 0 - 2 mmol/L [facility] NOTIFICATION NOT REPORTED [facility] NOTIFICATION TIME NOT REPORTED [facility] O2 Device/Flow/% NOT REPORTED [facility] Oxygen saturation in Blood 69.6 % 60 - 85 % [facility] Oxyhemoglobin NOT REPORTED 95 - 98 % [facility] pCO2, Denis 24.6 Low [facility] pCO2, Denis, Temp Adj NOT REPORTED [facility] Peep/Cpap NOT REPORTED [facility] pH, Deins 6.864 Critically low [facility] pH, Denis, Temp Adj NOT REPORTED [facility] pO2, Denis 39.3 [facility] pO2, Denis, Temp Adj NOT REPORTED [facility] Positive Base Excess, Denis NOT REPORTED 0 - 2 mmol/L [facility] PSV NOT REPORTED [facility] Pt. Position NOT REPORTED [facility] Sample Site NOT REPORTED [facility] Set Rate NOT REPORTED [facility] Text for Respiratory NOT REPORTED [facility] Total Hb NOT REPORTED 12 - 16 g/dl [facility] Total Rate NOT REPORTED [facility] VT NOT REPORTED [facility] BLOOD GASES BTYon 07-29-2020 02 MODE ROOM AIR Normal [facility] Comment on above: Performed By: #### A BG #### [facility] [address] [address] Alfie Rosa M ALLENS TEST Positive Normal [facility] Comment on above: Performed By: #### A BG #### [facility] [address] [address] Alfie Rosa M Base excess Calc (Bld) [Moles/Vol] -26.4 mmol/L Critically low -2.0-2.0 [facility] Comment on above: Performed By: #### A BG #### [facility] [address] [id number] Alfie Rosa M BIPAP PRESSURE Normal [facility] Comment on above: Performed By: #### A BG #### [facility] [address] [place] [address] Alfie Rosa M CO2 [Moles/Vol] 3.7 mmol/L Critically low 23.0-28.0 [facility] Comment on above: Performed By: #### A BG #### [facility] [address] [id number] Alfie Rosa M CPAP [facility] Comment on above: Performed By: #### A BG #### [facility] [address] [address] Alfie Rosa M FIO2 Normal [facility] Comment on above: Performed By: #### A BG #### [facility] [address] [address] Alfie Rosa M HCO3 (Bld) [Moles/Vol] 3.3 mmol/L Critically low 22.0-26.0 [facility] Comment on above: Performed By: #### A BG #### [facility] [address] [place] [address] Alfie Rosa M LPM [facility] Comment on above: Performed By: #### A BG #### [facility] [address] [id number] Alfie Rosa M MINUTE VOLUME Normal [facility] Comment on above: Performed By: #### A BG #### [facility] [address] [address] Alfie Rosa M Oxygen (Bld) [Partial pressure] 84.7 mm[Hg] Normal 80.0-100.0 [facility] Comment on above: Performed By: #### A BG #### [facility] [address] [address] Alfie Rosa M Oxygen saturation in Blood 94.1 % Critically low 95.0-100.0 [facility] Comment on above: Performed By: #### A BG #### [facility] [address] [address] Alfie Rosa M PCO2 13.9 mmHg Critically low 35.0-45.0 [facility] Comment on above: Performed By: #### A BG #### [facility] [address] [place] [address] Alfie Rosa M PEEP Normal [facility] Comment on above: Performed By: #### A BG #### [facility] [address] [address] Alfie Rosa M pH (Bld) 6.991 [pH] Critically low 7.350-7.450 [facility] Comment on above: Performed By: #### A BG #### [facility] [address] [place] [address] Alfie Rosa M PIP Normal [facility] Comment on above: Performed By: #### A BG #### [facility] [address] [place] [address] Alfie Rosa M PS Normal [facility] Comment on above: Performed By: #### A BG #### [facility] [address] [place] [address] Alfie Rosa M PUNCTURE SITE RR Normal [facility] Comment on above: Performed By: #### A BG #### [facility] [address] [place] [address] Alfie Rosa M RATE Normal [facility] Comment on above: Performed By: #### A BG #### [facility] [address] [place] [address] Alfie Rosa M VENT MODE Normal [facility] Comment on above: Performed By: #### A BG #### [facility] [address] [place], [place] [address] Alfie Mederos [place] Normal [facility] Comment on above: Performed By: #### A BG #### [facility] [address] [place], [place] [address] Alfie Mederos Basic Metabolic Panelon 3 Anion gap [Moles/Vol] Unable to calculat e anion gap due to CO2 less than 6. 9 - 17 mmol/L [place] Bun/Cre Ratio NOT REPORTED [place] Calcium [Mass/Vol] 7.0 mg/dL Low 8.6 - 10. 4 mg/dL [place] Chloride [Moles/Vol] 109 mmol/L High 98 - 10 7 mmol/L [place] CO2 [Moles/Vol] mmol/L Critically low 20 - 31 mmol/L [place] Creatinine [Mass/Vol] 0.98 mg/dL High 0.5 - 0.9 mg/dL [place] GFR >60 >60 mL/min [place] GFR Non- >60 >60 mL/min [place] GFR/1.73 sq M predicted among non-blacks MDRD (S/P/Bld) [Vol rate/Area] NOT REPORTED [place] GFR/1.73 sq M predicted among non-blacks MDRD (S/P/Bld) [Vol rate/Area] [place] Comment on above: Average GFR for 20-2 9 years old: 116 mL/min/1.73sq m Chronic Kidney Disease: <60 mL/min/1.73sq m Kidney failure: <15 mL/min/1.73sq m eGFR calculated using average adult body mass. Additional eGFR calculator available at: http://www.[employer]/multiple_crcl_2012.htm Glucose [Mass/Vol] 360 mg/dL High 70 - 99 mg/dL [place] Interpretation and review of laboratory results Abnormal [place] Potassium [Moles/Vol] 4.1 mmol/L 3.7 - 5.3 mmol/L [place] Sodium [Moles/Vol] 136 mmol/L 135 - 144 mmol/L [place] Urea nitrogen [Mass/Vol] 30 mg/dL High 6 - 20 mg/d L [place] Anion gap [Moles/Vol] Unable to calculat e anion gap due to CO2 less than 6. 9 - 17 mmol/L [place] Bun/Cre Ratio NOT REPORTED [place] Calcium [Mass/Vol] 6.9 mg/dL Low 8.6 - 10. 4 mg/dL [place] Chloride [Moles/Vol] 110 mmol/L High 98 - 10 7 mmol/L [place] CO2 [Moles/Vol] mmol/L Critically low 20 - 31 mmol/L [place] Creatinine [Mass/Vol] 0.95 mg/dL High 0.5 - 0.9 mg/dL [place] GFR >60 >60 mL/min [place] GFR Non- >60 >60 mL/min [place] GFR/1.73 sq M predicted among non-blacks MDRD (S/P/Bld) [Vol rate/Area] [place] Comment on above: Average GFR for 20-2 9 years old: 116 mL/min/1.73sq m Chronic Kidney Disease: <60 mL/min/1.73sq m Kidney failure: <15 mL/min/1.73sq m eGFR calculated using average adult body mass. Additional eGFR calculator available at: http://www.[employer]/multiple_crcl_2012.htm GFR/1.73 sq M predicted among non-blacks MDRD (S/P/Bld) [Vol rate/Area] NOT REPORTED [place] Glucose [Mass/Vol] 368 mg/dL High 70 - 99 mg/dL [place] Interpretation and review of laboratory results Abnormal [place] Potassium [Moles/Vol] 4.0 mmol/L 3.7 - 5.3 mmol/L [place] Sodium [Moles/Vol] 137 mmol/L 135 - 144 mmol/L [place] Urea nitrogen [Mass/Vol] 30 mg/dL High 6 - 20 mg/d L [place] CBC W MANUAL DIFFon 07-29-19 21 ATYPICAL LYMPH # 0.33 103/ul Normal [facility] Comment on above: Performed By: #### Colt MERRILL, PERSMR #### [facility] [address] [address] Alfie Rosa M ATYPICAL LYMPH % 1 % Normal [facility] Comment on above: Performed By: #### Colt MERRILL, PERSMR #### [facility] [address] [address] Alfie Rosa M BAND # 3.0 103/ul Critically high 0.0-0.3 [facility] Comment on above: Performed By: #### Colt MERRILL, PERSMR #### [facility] [address] [address] Alfie Rosa M BAND % 9 % Critically high 0-5 [facility] Comment on above: Performed By: #### Colt MERRILL PERSMR #### [facility] [address] [address] Alfie Rosa M BASOM # 0.00 103/ul Normal 0.00-0.10 [facility] Comment on above: Performed By: #### Colt MERRILL PERSMR #### [facility] [address] [address] Alfie Rosa M BASOM % 0.0 % Critically low 0.2-2.0 [facility] Comment on above: Performed By: #### Colt MERRILL PERSMR #### [facility] [address] [address] Alfie Rosa M BLAST # Normal [facility] Comment on above: Performed By: #### Colt MERRILL, PERSMR #### [facility] [address] [address] Alfie Rosa M BLAST % Normal [facility] Comment on above: Performed By: #### Colt MERRILL PERSMR #### [facility] [address] [id number] Alfie Rosa M CORRECTED WBC Normal 4.0-11.0 [facility] Comment on above: Performed By: #### Colt MERRILL, PERSMR #### [facility] [address] [place], [place] [address] Alfie Rosa M Eosinophils (Bld) [#/Vol] 0.00 103/ul Normal 0.00-0.70 [facility] Comment on above: Performed By: #### Colt MERRILL, PERSMR #### [facility] [address] [place], [place] [id number] Alfie Rosa M Eosinophils/100 WBC (Bld) 0.0 % Critically low 0.9-7.0 [facility] Comment on above: Performed By: #### Colt MERRILL, PERSMR #### [facility] [address] [place], [place] [id number] Alfie Rosa M Erythrocyte distribution width (RBC) [Ratio] 13.2 % Normal 11.0-15.0 [facility] Comment on above: Performed By: #### Colt MERRILL PERSMR #### [facility] [address] [place], [place] [id number] Alfie Rosa M Hematocrit (Bld) [Volume fraction] 48.3 % Critically high 36.0-48.0 [facility] Comment on above: Performed By: #### Colt MERRILL, PERSMR #### [facility] [address] [place], [place] [id number] Alfie Rosa M Hemoglobin (Bld) [Mass/Vol] 15.2 g/dl Normal 12.0-16.0 [facility] Comment on above: Performed By: #### Colt MERRILL, PERSMR #### [facility] [address] [place], [place] [id number] Alfie Rosa M LYMPHM # 3.00 103/ul Normal 1.20-3.80 [facility] Comment on above: Performed By: #### Colt MERRILL, PERSMR #### [facility] [address] [place], [place] [id number] Alfie Rosa M LYMPHM% 9.0 % Critically low 20.5-60.0 [facility] Comment on above: Performed By: #### Colt MERRILL, PERSMR #### [facility] [address] [id number] Alfiejamie Mederos MCH (RBC) [Entitic mass] 26.8 pg Normal 26.7-34.0 [facility] Comment on above: Performed By: #### C DESIRAE, PERSMR #### [facility] [address] [place] [address] Alfiejamie Mederos MCHC (RBC) [Mass/Vol] 31.5 g/dl Normal 29.9-35.2 [facility] Comment on above: Performed By: #### C DESIRAE, PERSMR #### [facility] [address] [place] [address] Alfie Mederos MCV (RBC) [Entitic vol] 85.0 fL Normal 81.0-99.0 [facility] Comment on above: Performed By: #### Colt MERRILL, PERSMR #### [facility] [address] [place] [address] Alfie Rosa M METAMYELOCYTE # 1.0 103/ul Normal [facility] Comment on above: Performed By: #### Colt MERRILL, PERSMR #### [facility] [address] [place] [address] Alfie Rosa M METAMYELOCYTE % 3 % Normal [facility] Comment on above: Performed By: #### Colt MERRILL, PERSMR #### [facility] [address] [place] [address] Alfie Rosa M MONOM# 1.33 103/ul Critically high 0.30-0.80 [facility] Comment on above: Performed By: #### Colt MERRILL, PERSMR #### [facility] [address] [place] [address] Alfie Rosa M MONOM% 4.0 % Normal 1.7-12.0 [facility] Comment on above: Performed By: #### Colt MERRILL, PERSMR #### [facility] [address] [place] [address] Alfie Rosa M MYELOCYTE # 0.3 103/ul Normal [facility] Comment on above: Performed By: #### Colt MERRILL, PERSMR #### [facility] [address] [address] Alfie Rosa M MYELOCYTE % 1 % Normal [facility] Comment on above: Performed By: #### Colt MERRILL, PERSMR #### [facility] [address] [place], [place] [id number] Alfie Rosa M NRBC Normal [facility] Comment on above: Performed By: #### Colt MERRILL, PERSMR #### [facility] [address] [place] [address] Alfie Rosa M PATH REVIEW INDICATED Normal [facility] Comment on above: Performed By: #### Colt MERRILL PERSMR #### [facility] [address] [place] [address] Alfie Rosa M Platelet mean volume (Bld) [Entitic vol] 10.1 fL Normal 9.5-13.5 [facility] Comment on above: Performed By: #### Colt MERRILL PERSMR #### [facility] [address] [place] [address] Alfie Rosa M Platelets (Bld) [#/Vol] 384 103/ul Normal 150-450 [facility] Comment on above: Performed By: #### Colt MERRILL, PERSMR #### [facility] [address] [place] [address] Alfie Rosa M RBC (Bld) [#/Vol] 5.68 106/ul Critically high 4.20-5.40 [facility] Comment on above: Result Comment: crit ical value repeated and verified for wbc Performed By: #### Colt MERRILL, PERSMR #### [facility] [address] [place] [address] Alfie Rosa M SEG # 24.31 103/ul Critically high 1.40-6.50 [facility] Comment on above: Performed By: #### Colt MERRILL, PERSMR #### [facility] [address] [place], [place] [id number] Alfie Rosa M Segmented neutrophils/100 WBC (Bld) 73.0 % Normal 43.0-75.0 [facility] Comment on above: Performed By: #### C SAAD MERRILL #### [facility] [address] [place], [place] [address] Alfie Mederos WBC (Bld) [#/Vol] 33.3 103/ul Critically high 4.0-11.0 [facility] Comment on above: Result Comment: crit ical toya Performed By: #### C SAAD MERRILL #### [facility] [address] [place], [place] [address] Alfie Mederos CBC auto differentialon 07-02 Basophils (Bld) [#/Vol] 0.00 10*3/uL [place] Basophils/100 WBC (Bld) 0 % 0 - 2 % [place] Differential Type NOT REPORTED [place] Eosinophils (Bld) [#/Vol] 0.00 10*3/uL [place] Eosinophils/100 WBC (Bld) 0 % Low 1 - 4 % [place] Erythrocyte distribution width (RBC) [Ratio] 13.0 % 11.8 - 14.4 % [place] Hematocrit (Bld) [Volume fraction] 45.0 % 36.3 - 47.1 % [place] Hemoglobin (Bld) [Mass/Vol] 14.0 g/dL 11.9 - 15.1 g/dL [place] Immature granulocytes (Bld) [#/Vol] 0.86 10*3/uL [place] Immature granulocytes (Bld) [#/Vol] 3 % High 0 [place] Interpretation and review of laboratory results Abnormal [place] Lymphocytes (Bld) [#/Vol] 1.43 10*3/uL [place] Lymphocytes/100 WBC (Bld) 5 % Low 24 - 44 % [place] MCH (RBC) [Entitic mass] 26.3 pg 25. 2 - 33.5 pg [place] MCHC (RBC) [Mass/Vol] 31.1 g/dL 28.4 - 34.8 g/dL [place] MCV (RBC) [Entitic vol] 84.6 fL 82.6 - 102.9 fL [place] Monocytes (Bld) [#/Vol] 1.14 10*3/uL [place] Monocytes/100 WBC (Bld) 4 % 1 - 7 % [place] Morphology Calvin (Bld) [Interp] Normal [place] Platelet mean volume (Bld) [Entitic vol] 9.9 fL 8.1 - 13.5 fL [place] Platelets (Bld) [#/Vol] 346 10*3/uL [place] Platelets (Bld) [#/Vol] NOT REPORTED [place] RBC (Bld) [#/Vol] 5.32 10*6/uL High 3.95 - 5.1 1 m/uL [place] RBC morphology finding Nom (Bld) NOT REPORTED [place] Segmented neutrophils/100 WBC (Bld) 88 % High 36 - 66 % [place] Segs Absolute 25.07 [place] WBC (Bld) [#/Vol] 0.0 10*3/uL 0.0 per 10 0 WBC [place] WBC (Bld) [#/Vol] 28.5 10*3/uL [place] WBC Morphology NOT REPORTED [place] CT HEAD WO CONon 07-29-2020 CT [...] KALIN BRUNER Date: 2020-07-29 17:22 Normal [facility] CULTURE URINEon 07-29-2020 CULTURE URINE Culture Observations: NO GROWTH Normal [facility] Comment on above: Performed By: #### D RUGRPD #### [facility] [address] [place] [address] Alfiejamie Mederos DRUG SCREEN RAPID (URINE)on 07-29-2020 AMP Negative Normal NEGATIVE [facility] Comment on above: Performed By: #### D RUGRPD #### [facility] [address] [place] [address] Alfie Rosa M BAR Negative Normal NEGATIVE [facility] Comment on above: Performed By: #### D RUGRPD #### [facility] [address] [place] [address] Alfie Rosa M BUP Negative Normal NEGATIVE [facility] Comment on above: Performed By: #### D RUGRPD #### [facility] [address] [place] [address] Alfie Rosa M BZO Negative Normal NEGATIVE [facility] Comment on above: Performed By: #### D RUGRPD #### [facility] [address] [place] [address] Alfie Rosa M KRISTINA Negative Normal NEGATIVE [facility] Comment on above: Performed By: #### D RUGRPD #### [facility] [address] [place] [address] Alfie Rosa M CUT-OFFS SEE BELOW Normal [facility] Comment on above: Result Comment: AMP [...] ng/mL Performed By: #### D RUGRPD #### [facility] [address] [place] [address] Alfiejamie Mederos DRUG CUT HEADER DRUG CLASS TEST SYSTEM CUT-OFF CONCENTRATIONS ARE FOLLOWS: Normal [facility] Comment on above: Performed By: #### D RUGRPD #### [facility] [address] [place] [address] Alfie Rosa M mAMP Negative Normal NEGATIVE [facility] Comment on above: Performed By: #### D RUGRPD #### [facility] [address] [place] [address] Alfie Rosa M MTD Negative Normal NEGATIVE [facility] Comment on above: Performed By: #### D RUGRPD #### [facility] [address] [place] [address] Alfie Rosa M OPI Negative Normal NEGATIVE [facility] Comment on above: Performed By: #### D RUGRPD #### [facility] [address] [place] [address] Alfie Rosa M OXY Negative Normal NEGATIVE [facility] Comment on above: Performed By: #### D RUGRPD #### [facility] [address] [place] [address] Alfie Rosa M PCP Negative Normal NEGATIVE [facility] Comment on above: Performed By: #### D RUGRPD #### [facility] [address] [place] [address] Alfie Rosa M PPX Negative Normal NEGATIVE [facility] Comment on above: Performed By: #### D RUGRPD #### [facility] [address] [place] [address] Alfie Rosa M TCA Negative Normal NEGATIVE [facility] Comment on above: Performed By: #### D RUGRPD #### [facility] [address] [place] [address] Alfie Rosa M THC Negative Normal NEGATIVE [facility] Comment on above: Performed By: #### D RUGRPD #### [facility] [address] [place] [address] Alfie Rosa M ER URINE PROFILEon 1 Bilirubin [Mass/Vol] Negative Normal NEGATIVE [facility] Comment on above: Performed By: #### D RUGRPD #### [facility] [address] [place], [place] [address] Alfie Rosa M BLOOD MODERATE Abnormal NEGATIVE [facility] Comment on above: Performed By: #### D RUGRPD #### [facility] [address] [place] [address] Alfie Rosa M Clarity (U) CLEAR Normal CLEAR [facility] Comment on above: Performed By: #### D RUGRPD #### [facility] [address] [place], [place] [id number] Alfie Rosa M Color (U) LT. YELLOW Normal YELLOW [facility] Comment on above: Performed By: #### D RUGRPD #### [facility] [address] [place] [address] Alfie Rosa M ERUAHD A micrscopic examination will be performed if indicated. Normal [facility] Comment on above: Performed By: #### D RUGRPD #### [facility] [address] [place] [address] Alfie Rosa M Glucose [Mass/Vol] >1000 Abnormal NEGATIVE [facility] Comment on above: Performed By: #### Jam RUGRPD #### [facility] [address] [place] [address] Alfie Rosa M Ketones Ql (U) >=80 Abnormal NEGATIVE [facility] Comment on above: Performed By: #### Jam HURTADORPD #### [facility] [address] [place] [address] Alfie Rosa M Nitrite Ql (U) Negative Normal NEGATIVE [facility] Comment on above: Performed By: #### Jam HURTADORPD #### [facility] [address] [place] [address] Alfie Rosa M pH (Bld) 5.5 Normal 5-9 [facility] Comment on above: Performed By: #### Jam HURTADORPD #### [facility] [address] [place] [address] Alfie Rosa M Protein (U) [Mass/Vol] 30 mg/dL Abnormal NEGAT MALISSA/ TRACE [facility] Comment on above: Performed By: #### Jam RUGRPD #### [facility] [address] [place] [address] Alfie Rosa M SPEC GRAVITY 1.025 Normal 1.005-<=1.02 5 [facility] Comment on above: Performed By: #### D RUGRPD #### [facility] [address] [place] [address] Alfie Mederos UR MICRO IND INDICATED Normal [facility] Comment on above: Performed By: #### D RUGRPD #### [facility] [address] [id number] Alfie Mederos Urobilinogen Qn (U) 0.2 EU/dl Normal 0.2 - 1.0 [facility] Comment on above: Performed By: #### D RUGRPD #### [facility] [address] [place], [place] [id number] Alfie Mederos WBC (Bld) [#/Vol] Negative Normal NEGATIVE [facility] Comment on above: Performed By: #### D RUGRPD #### [facility] [address] [place], [place] [id number] Alfie Mederos ETHANOL (BLD ALC)on 07-29-19 21 Ethanol [Mass/Vol] NOTE: 80 mg/dl is the legal limit for a blood alcohol level Normal [facility] Comment on above: Performed By: #### D RUGGUILLERMOD #### [facility] [address] [place], [place] [id number] Alfie Mederos Ethanol [Mass/Vol] mg/dL Normal [facility] Comment on above: Performed By: #### D RUGRPD #### [facility] [address] [place], [place] [id number] Alfie Meedros LACTIC ACID, WHOLE BLOODon 0 07-29-2020 Lactic Acid, Whole Blood 1.1 mmol/L 0.7 - 2.1 mmol/L [facility] Magnesiumon 07-29-2020 Magnesium [Mass/Vol] 2.0 mg/dL 1.6 - 2 .6 mg/dL [facility] Magnesium [Mass/Vol] 1.8 mg/dL 1.6 - 2 .6 mg/dL [facility] NAon 07-29-2020 Sodium [Moles/Vol] 138 mmol/L Normal 137-145 [facility] Comment on above: Performed By: #### K , NA #### [facility] [address] [place], [place] [address] Alfie Rosa M PERIPHERAL SMEARon Pathologist Cyto stain Nom (Cvx/Vag) [ID] DR. LUÍS HAY [facility] Comment on above: Result Comment: nini ed neutrophilia with left shift, rule out infectious process mild erythrocytosis CPT: 91264 luís hay 08-01-20 Performed By: #### C DESIRAE, PERSMR #### [facility] [address] [place], [place] [address] Alfie Rosa M PH VENOUS BLOODon 07-29-2020 PCO2 VENOUS 21.5 mmHg Critically low 40.0-52.0 [facility] Comment on above: Performed By: #### A BG #### [facility] [address] [place] [address] Alfie Rosa M pH VENOUS <6.93 Critically low 7.33-7.43 [facility] Comment on above: Performed By: #### A BG #### [facility] [address] [place], [place] [address] Alfie Rosa M POC Glucose Fingerstickon Glucose [Mass/Vol] 334 mg/dL High 65 - 105 mg/dL [place] Interpretation and review of laboratory results Abnormal [place] Glucose [Mass/Vol] 340 mg/dL High 65 - 105 mg/dL [place] Interpretation and review of laboratory results Abnormal [place] Glucose [Mass/Vol] 363 mg/dL High 65 - 105 mg/dL [place] Interpretation and review of laboratory results Abnormal [place] POINT OF CARE GLUCOSEon 07-02 Glucose [Mass/Vol] 337 mg/dL Critically high 74-106 [facility] Comment on above: Performed By: #### P OCGLUC #### [facility] [address] [place], [place] [address] Alfie Rosa M Glucose [Mass/Vol] 367 mg/dL Critically high 74-106 [facility] Comment on above: Performed By: #### D RUGRPD #### [facility] [address] [place], [place] [address] Alfie Rosa M Glucose [Mass/Vol] 375 mg/dL Critically high 74-106 [facility] Comment on above: Performed By: #### D RUGRPD #### [facility] [address] [place], [place] [address] Alfie Rosa M Glucose [Mass/Vol] 403 mg/dL Critically high 74-106 [facility] Comment on above: Performed By: #### A BG #### [facility] [address] [place] [address] Alfie Rosa M POTASSIUMon 07-29-2020 Potassium [Moles/Vol] 4.0 mmol/L Normal 3.4-5.0 [facility] Comment on above: Performed By: #### K , NA #### [facility] [address] [place] [address] Alfie Rosa M URon 07-29-2020 , QUAL Negative Normal NEGATIVE [facility] Comment on above: Performed By: #### P REGU #### [facility] [address] [place] [address] Alfie Rosa M PROF 14(COMP METB)on 021 Albumin [Mass/Vol] 3.2 g/dL Critically low 3.5-5.0 [facility] Comment on above: Performed By: #### D RUGRPD #### [facility] [address] [place] [address] Aflie Rosa M Albumin/Globulin [Mass ratio] 1.0 {ratio} Normal [facility] Comment on above: Performed By: #### D RUGRPD #### [facility] [address] [place] [address] Alfie Rosa M ALP [Catalytic activity/Vol] 135 U/L Critically high 38-126 [facility] Comment on above: Performed By: #### D RUGRPD #### [facility] [address] [place] [address] Alfie Rosa M ALT [Catalytic activity/Vol] 27 U/L Normal 9-52 [facility] Comment on above: Performed By: #### D RUGRPD #### [facility] [address] [place], [place] [address] Alfie Rosa M Anion gap [Moles/Vol] 31.9 mmol/L Normal [facility] Comment on above: Performed By: #### D RUGRPD #### [facility] [address] [place], [place] [address] Alfie Rosa M AST [Catalytic activity/Vol] 52 U/L Critically high 14-36 [facility] Comment on above: Performed By: #### D RUGRPD #### [facility] [address] [place], [place] [address] Alfie Rosa M Bilirubin Ql (U) 0.5 mg/dL Normal 0.2-1.3 [facility] Comment on above: Performed By: #### D RUGRPD #### [facility] [address] [id number] Alfie Rosa M Calcium [Mass/Vol] 6.8 mg/dL Critically low 8.4-10.2 [facility] Comment on above: Performed By: #### D RUGRPD #### [facility] [address] [place], [place] [address] Alfie Rosa M Chloride [Moles/Vol] 103 mmol/L Normal 98-107 [facility] Comment on above: Performed By: #### D RUGRPD #### [facility] [address] [place], [place] [address] Alfie Rosa M CO2 [Moles/Vol] mmol/L Critically low 22.0-30.0 [facility] Comment on above: Result Comment: TEST REPEATED CRITICAL VALUE VERIFIED Performed By: #### D RUGRPD #### [facility] [address] [place], [place] [address] Alfie Rosa M Creatinine [Mass/Vol] 1.08 mg/dL Critically high 0.52-1.04 [facility] Comment on above: Performed By: #### D RUGRPD #### [facility] [address] [place], [place] [address] Alfie Rosa M EGFR-AF FINNISH >60 Normal >=60 [facility] Comment on above: Performed By: #### D RUGRPD #### [facility] [address] [place], [place] [address] Alfie Rosa M EGFR-NON AF FINNISH >60 Normal >=60 [facility] Comment on above: Performed By: #### D RUGRPD #### [facility] [address] [place], [place] [address] Alfie Rosa M Globulin (S) [Mass/Vol] 3.1 g/dL Normal [facility] Comment on above: Performed By: #### D RUGRPD #### [facility] [address] [place], [place] [address] Alfie Rosa M Glucose [Mass/Vol] 448 mg/dL Critically high 74-106 [facility] Comment on above: Performed By: #### D RUGRPD #### [facility] [address] [place], [place] [address] Alfie Rosa M Potassium [Moles/Vol] 3.9 mmol/L Normal 3.4-5.0 [facility] Comment on above: Performed By: #### D RUGRPD #### [facility] [address] [place], [place] [address] Alfie Rosa M Protein [Mass/Vol] 6.3 g/dL Normal 6.1-8.2 [facility] Comment on above: Performed By: #### D RUGGUILLERMOD #### [facility] [address] [place], [place] [address] Alfie Rosa M Sodium [Moles/Vol] 136 mmol/L Critically low 137-145 [facility] Comment on above: Performed By: #### D GENESISRPD #### [facility] [address] [place], [place] [address] Alfie Rosa M Urea nitrogen [Mass/Vol] 28.0 mg/dL Critically high 7.0-17 .0 [facility] Comment on above: Performed By: #### D BELTRAND #### [facility] [address] [place], [place] [address] Alfie Rosa M Urea nitrogen/Creatinine [Mass ratio] 25.9 mg/mg Normal [facility] Comment on above: Performed By: #### D KAILEY #### [facility] [address] [place] [address] Alfie Mederos Phosphoruson 07-29-2020 Phosphate [Mass/Vol] 2.9 mg/dL 2.6 - 4 .5 mg/dL [facility] Phosphate [Mass/Vol] 2.6 mg/dL 2.6 - 4 .5 mg/dL [facility] Rapid Covid-19 PCR (CVDRPD)o n 07-29-2020 [employer] LDT Info SEE BELOW Normal [facility] Comment on above: Result Comment: This test is not yet approved or cleared by the [place] Food and Drug Administration (FDA) . This test was developed by [employer], [facility]. The performance characteristics of this test were validated by [facility]. The results are not intended to be used as the sole means for clinical diagnosis or patient management decisions. [facility] is authorized under Clinical Laboratory Improvement Amendments (CLIA) to perform high-complexity testing. When diagnostic testing is negative, the possibility of a false negative should be considered in the context of a patients recent exposures and the presence of clinical signs and symptoms consistent with SARS-CoV-2. Performed By: #### C VDRPD #### [facility] [address] [place] [address] Alfie Mederos SARS-CoV-2 NOT DETECTED Normal NOT DETECTED [facility] Comment on above: Result Comment: This test is not yet approved or cleared by the [place] Food and Drug Administration (FDA). This test was developed by [employer]. The performance characteristics of this test were validated by [facility]. The results are not intended to be used as the sole means for clinical diagnosis or patient management decisions. [facility] is authorized under Clinical Laboratory Improvement Amendments (CLIA) to perform high-complexity testing. Performed By: #### C VDRPD #### [facility] [address] [place] [address] Alfie Mederos SALICYLATEon 07-29-2020 SALICYLATE 10.6 mg/dL Normal <=20.0 [facility] Comment on above: Performed By: #### A BG #### [facility] [address] [place], [place] [id number] Alfie Rosa M URINE MICROSCOPIC ONLYon AMORPHOUS CRYSTALS FEW Normal [facility] Comment on above: Performed By: #### D RUGRPD #### [facility] [address] [place], [place] [id number] Alfie Rosa M Bacteria LM.HPF (Urine sed) [#/Area] SMALL Abnormal NONE SEEN [facility] Comment on above: Performed By: #### D RUGRPD #### [facility] [address] [place], [place] [id number] Alfie Rosa M CAST NONE SEEN Normal NONE SEEN [facility] Comment on above: Performed By: #### D RUGRPD #### [facility] [address] [place], [place] [id number] Alfie Rosa M Crystals LM Nom (Urine sed) SEEN Abnormal NONE SEEN [facility] Comment on above: Performed By: #### D RUGRPD #### [facility] [address] [place], [place] [id number] Alfie Rosa M CULTURE INDICATED Normal [facility] Comment on above: Performed By: #### D RUGRPD #### [facility] [address] [place], [place] [address] Alfie Rosa M Epithelial cells LM.HPF (Urine sed) [#/Area] FEW Abnormal NONE SEEN /RARE [facility] Comment on above: Performed By: #### D RUGRPD #### [facility] [address] [place], [place] [address] Alfie Rosa M MUCOUS TRACE Abnormal NONE SEEN [facility] Comment on above: Performed By: #### D RUGRPD #### [facility] [address] [place], [place] [id number] Alfie Rosa M RBC (U) [#/Vol] 2-5 Abnormal 0-2 [facility] Comment on above: Performed By: #### D RUGRPD #### [facility] [address] [place], [place] [id number] Alfie Rosa M WBC (Bld) [#/Vol] 2-5 Abnormal NONE SEEN [facility] Comment on above: Performed By: #### D RUGRPD #### [facility] [address] [place], [place] [address] Alfie Mederos XR CHEST 1 Von 07-29-2020 XR CHEST 1 V CHEST X-RAY, 1 VIEW HISTORY: Acute respiratory distress.. COMPARISON: None. FINDINGS: The heart, quin, and mediastinum are unremarkable. There is right lower lobe airspace disease. There are no pleural effusions. There is no pneumothorax. IMPRESSION: Right lower lobe atelectasis or infiltrate. Electronically authenticated by: TAMIKO ÁLVAREZ Date: 2020-07-29 11:44 Normal [facility] Comprehensive Metabolic Pane galileo 06-10-2020 Albumin [Mass/Vol] 2.3 g/dL Low 3.2 - 5.2 g/dL [facility] ALP [Catalytic activity/Vol] 70 U/L 40 - 140 U/L [facility] ALT [Catalytic activity/Vol] 21 U/L 14 - 65 U/L [facility] Anion gap [Moles/Vol] 9 mmol/L Low 10 - 2 0 mmol/L [facility] AST [Catalytic activity/Vol] 14 U/L 0 - 45 U/L [facility] Bilirubin [Mass/Vol] 0.3 mg/dL 0 - 1.3 mg/dL [facility] Calcium [Mass/Vol] 8.4 mg/dL 8.4 - 10. 2 mg/dL [facility] Chloride [Moles/Vol] 111 mmol/L High 98 - 10 8 mmol/L [facility] Creatinine [Mass/Vol] 0.56 mg/dL 0.40 - 1.10 [facility] GFR/1.73 sq M predicted among non-blacks MDRD (S/P/Bld) [Vol rate/Area] The eGFR should be used for monitoring renal function only and not for medication dosing. [facility] GFR/1.73 sq M.predicted CKD-EPI (S/P/Bld) [Vol rate/Area] 128 >=60 mL/min/1.73 m2 [facility] Glucose [Mass/Vol] 267 mg/dL High 65 - 99 mg/dL [facility] HCO3 [Moles/Vol] 24 mmol/L 21 - 32 mmol/L [facility] Interpretation and review of laboratory results Abnormal [facility] Potassium [Moles/Vol] 3.9 mmol/L 3.5 - 5.1 mmol/L [facility] Protein [Mass/Vol] 5.5 g/dL Low 6 - 8 g/dL [facility]th Sodium [Moles/Vol] 140 mmol/L 135 - 145 mmol/L [facility] Urea nitrogen [Mass/Vol] 9 mg/dL 8 - 25 mg/d L [facility] Urea nitrogen/Creatinine [Mass ratio] 16.1 mg/mg [facility] POC Glucoseon 06-10-2020 Glucose [Mass/Vol] 236 mg/dL High 65 - 99 mg/dL [facility] Interpretation and review of laboratory results Abnormal [facility] Glucose [Mass/Vol] 457 mg/dL Critically high 65 - 9 9 mg/dL [facility] Interpretation and review of laboratory results Abnormal [facility] Critical result acted upon time of test. Test performed at bedside. [facility] Glucose [Mass/Vol] 313 mg/dL High 65 - 99 mg/dL [facility] Interpretation and review of laboratory results Abnormal [facility] Phosphoruson 06-10-2020 Interpretation and review of laboratory results Normal [facility] Phosphate [Mass/Vol] 3.7 mg/dL 2.7 - 4 .5 mg/dL [facility] CBC WITH AUTO DIFFERENTIALon 06-09-2020 Basophils (Bld) [#/Vol] 0.01 10*3/uL [facility] Basophils/100 WBC (Bld) 0.2 % [facility] Eosinophils (Bld) [#/Vol] 0.03 10*3/uL [facility] Eosinophils/100 WBC (Bld) 0.5 % [facility] Erythrocyte distribution width (RBC) [Entitic vol] 13.9 % 11.6 - 14.8 % [facility] Hematocrit (Bld) [Volume fraction] 34.1 % Low 36 - 46 % [facility] Hemoglobin (Bld) [Mass/Vol] 11.8 g/dL Low 12 - 16 g/dL [facility] Immature granulocytes (Bld) [#/Vol] 0.02 10*3/uL [facility] Immature granulocytes/100 WBC (Bld) 0.30 % [facility] Comment on above: The IG parameter is the percentage of metamyelocytes, myelocytes and promyelocytes. An immature granulocyte count (IG) of 1% or more suggests the possibility of infection, an IG count of 3% is very likely related to an infection. Interpretation and review of laboratory results Abnormal [facility] Lymphocytes (Bld) [#/Vol] 1.33 10*3/uL [facility] Lymphocytes/100 WBC (Bld) 22.1 % [facility] MCH (RBC) [Entitic mass] 27.0 pg 26 - 34 pg [facility] MCHC (RBC) [Mass/Vol] 34.6 g/dL 31 - 37 g/dL [facility] MCV (RBC) [Entitic vol] 78.0 fL Low 80 - 100 fL [facility] Monocytes (Bld) [#/Vol] 0.57 10*3/uL [facility] Monocytes/100 WBC (Bld) 9.5 % [facility] Neutrophils (Bld) [#/Vol] 4.05 10*3/uL [facility] Neutrophils/100 WBC (Bld) 67.4 % [facility] Nucleated RBC (Bld) [#/Vol] 0.00 10*3/uL [facility] Nucleated RBC/100 WBC (Bld) [Ratio] 0.0 % [facility] Platelet mean volume (Bld) [Entitic vol] 9.8 fL 9.4 - 12.4 fL [facility] Platelets (Bld) [#/Vol] 255 10*3/uL [facility] RBC (Bld) [#/Vol] 4.37 10*6/uL [facility] WBC (Bld) [#/Vol] 6.01 10*3/uL [facility] Comprehensive Metabolic Pane galileo 06-09-2020 Albumin [Mass/Vol] 2.6 g/dL Low 3.2 - 5.2 g/dL [facility] ALP [Catalytic activity/Vol] 68 U/L 40 - 140 U/L [facility] ALT [Catalytic activity/Vol] 19 U/L 14 - 65 U/L [facility] Anion gap [Moles/Vol] 11 mmol/L 10 - 2 0 mmol/L [facility] AST [Catalytic activity/Vol] 11 U/L 0 - 45 U/L [facility] Bilirubin [Mass/Vol] 0.4 mg/dL 0 - 1.3 mg/dL [facility] Calcium [Mass/Vol] 8.5 mg/dL 8.4 - 10. 2 mg/dL [facility] Chloride [Moles/Vol] 110 mmol/L High 98 - 10 8 mmol/L [facility] Creatinine [Mass/Vol] 0.59 mg/dL 0.40 - 1.10 [facility] GFR/1.73 sq M predicted among non-blacks MDRD (S/P/Bld) [Vol rate/Area] The eGFR should be used for monitoring renal function only and not for medication dosing. [facility] GFR/1.73 sq M.predicted CKD-EPI (S/P/Bld) [Vol rate/Area] 126 >=60 mL/min/1.73 m2 [facility] Glucose [Mass/Vol] 239 mg/dL High 65 - 99 mg/dL [facility] HCO3 [Moles/Vol] 19 mmol/L Low 21 - 32 mmol/L [facility] Potassium [Moles/Vol] 3.2 mmol/L Low 3.5 - 5.1 mmol/L [facility] Protein [Mass/Vol] 5.8 g/dL Low 6 - 8 g/dL [facility] Sodium [Moles/Vol] 137 mmol/L 135 - 145 mmol/L [facility] Urea nitrogen [Mass/Vol] 6 mg/dL Low 8 - 25 mg/d L [facility] Urea nitrogen/Creatinine [Mass ratio] 10.2 mg/mg [facility] Magnesium Levelon 06-09-2020 Interpretation and review of laboratory results Normal [facility] Magnesium [Mass/Vol] 1.8 mg/dL 1.6 - 2 .4 mg/dL [facility] Otheron 06-09-2020 Interpretation and review of laboratory results Abnormal [facility] Interpretation and review of laboratory results Abnormal [facility] POC Glucoseon 06-09-2020 Glucose [Mass/Vol] 303 mg/dL High 65 - 99 mg/dL [facility] Interpretation and review of laboratory results Abnormal [facility] Glucose [Mass/Vol] 161 mg/dL High 65 - 99 mg/dL [facility] Glucose [Mass/Vol] 335 mg/dL High 65 - 99 mg/dL [facility] Glucose [Mass/Vol] 264 mg/dL High 65 - 99 mg/dL [facility] Interpretation and review of laboratory results Abnormal [facility] Glucose [Mass/Vol] 247 mg/dL High 65 - 99 mg/dL [facility] Interpretation and review of laboratory results Abnormal [facility] Phosphoruson 06-09-2020 Phosphate [Mass/Vol] 2.1 mg/dL Low 2.7 - 4 .5 mg/dL [facility] Potassium Levelon 06-09-2020 Interpretation and review of laboratory results Normal [facility] Potassium [Moles/Vol] 3.6 mmol/L 3.5 - 5.1 mmol/L [facility] URINALYSISon 06-09-2020 Bacteria Auto Ql (U) None Seen None Se en /hpf [facility] Bilirubin Ql (U) Negative Negative [facility] th Clarity Refractometry automated (U) Clear Clear [facility] Color (U) Colorless Colorless, Yellow [facility] Glucose Auto test strip (U) [Mass/Vol] >=500 Abnormal Negative mg/dL [facility] Hemoglobin Auto test strip Ql (U) Negative Negative [facility] Interpretation and review of laboratory results Abnormal [facility] Ketones (U) [Mass/Vol] Negative Negat malissa mg/dL [facility] Leukocyte esterase Auto test strip Ql (U) Negative Negative [facility] Mucus Auto (Urine sed) [#/Area] Rare None Seen, Rare /lpf [facility] Nitrite Auto test strip Ql (U) Negative Negative [facility] pH (U) 6.0 [pH] [facility] Protein (U) [Mass/Vol] Negative Negat malissa mg/dL [facility] RBC Auto (Urine sed) [#/Area] 1 [facility] Specific gravity (U) [Rel density] 1.009 [facility] Urobilinogen (U) [Mass/Vol] <2.0 <2.0 mg/dL [facility] WBC Auto (Urine sed) [#/Area] 1 [facility] Microscopic examination is performed on all urinalysis samples and only positive findings are reported. The test for blood on the chemical analytic portion of urinalysis may also be positive due to hemoglobinuria and myoglobinuria and if red blood cells are present they are quantified by microscopic examination. [facility] Basic Metabolic Panelon 12-1 0 Anion gap [Moles/Vol] 18 mmol/L 10 - 2 0 mmol/L [facility] Calcium [Mass/Vol] 8.7 mg/dL 8.4 - 10. 2 mg/dL [facility] Chloride [Moles/Vol] 107 mmol/L 98 - 10 8 mmol/L [facility] Creatinine [Mass/Vol] 0.82 mg/dL 0.40 - 1.10 [facility] GFR/1.73 sq M predicted among non-blacks MDRD (S/P/Bld) [Vol rate/Area] The eGFR should be used for monitoring renal function only and not for medication dosing. [facility] GFR/1.73 sq M.predicted CKD-EPI (S/P/Bld) [Vol rate/Area] 98 >=60 mL/min/1.73 m2 [facility] Glucose [Mass/Vol] 321 mg/dL High 65 - 99 mg/dL [facility] HCO3 [Moles/Vol] 11 mmol/L Low 21 - 32 mmol/L [facility] Potassium [Moles/Vol] 4.0 mmol/L 3.5 - 5.1 mmol/L [facility] Sodium [Moles/Vol] 132 mmol/L Low 135 - 145 mmol/L [facility] Urea nitrogen [Mass/Vol] 7 mg/dL Low 8 - 25 mg/d L [facility] Urea nitrogen/Creatinine [Mass ratio] 8.5 mg/mg Low [facility] Anion gap [Moles/Vol] 14 mmol/L 10 - 2 0 mmol/L [facility] Calcium [Mass/Vol] 8.8 mg/dL 8.4 - 10. 2 mg/dL [facility] Chloride [Moles/Vol] 113 mmol/L High 98 - 10 8 mmol/L [facility] Creatinine [Mass/Vol] 0.63 mg/dL 0.40 - 1.10 [facility] GFR/1.73 sq M predicted among non-blacks MDRD (S/P/Bld) [Vol rate/Area] The eGFR should be used for monitoring renal function only and not for medication dosing. [facility] GFR/1.73 sq M.predicted CKD-EPI (S/P/Bld) [Vol rate/Area] 123 >=60 mL/min/1.73 m2 [facility] Glucose [Mass/Vol] 105 mg/dL High 65 - 99 mg/dL [facility] HCO3 [Moles/Vol] 11 mmol/L Low 21 - 32 mmol/L [facility] Interpretation and review of laboratory results Abnormal [facility] Potassium [Moles/Vol] 4.4 mmol/L 3.5 - 5.1 mmol/L [facility] Sodium [Moles/Vol] 134 mmol/L Low 135 - 145 mmol/L [facility] Urea nitrogen [Mass/Vol] 7 mg/dL Low 8 - 25 mg/d L [facility] Urea nitrogen/Creatinine [Mass ratio] 11.1 mg/mg [facility] Anion gap [Moles/Vol] 11 mmol/L 10 - 2 0 mmol/L [facility] Calcium [Mass/Vol] 8.9 mg/dL 8.4 - 10. 2 mg/dL [facility] Chloride [Moles/Vol] 113 mmol/L High 98 - 10 8 mmol/L [facility] Creatinine [Mass/Vol] 0.55 mg/dL 0.40 - 1.10 [facility] GFR/1.73 sq M predicted among non-blacks MDRD (S/P/Bld) [Vol rate/Area] The eGFR should be used for monitoring renal function only and not for medication dosing. [facility] GFR/1.73 sq M.predicted CKD-EPI (S/P/Bld) [Vol rate/Area] 129 >=60 mL/min/1.73 m2 [facility] Glucose [Mass/Vol] 134 mg/dL High 65 - 99 mg/dL [facility] HCO3 [Moles/Vol] 15 mmol/L Low 21 - 32 mmol/L [facility] Interpretation and review of laboratory results Abnormal [facility] Potassium [Moles/Vol] 3.0 mmol/L Low 3.5 - 5.1 mmol/L [facility] Sodium [Moles/Vol] 136 mmol/L 135 - 145 mmol/L [facility] Urea nitrogen [Mass/Vol] 7 mg/dL Low 8 - 25 mg/d L [facility] Urea nitrogen/Creatinine [Mass ratio] 12.7 mg/mg [facility] Beta-Hydroxybutyrateon 06-08 Beta hydroxybutyrate [Moles/Vol] 0.4 mmol/L High 0 - 0.3 mmol/L [facility] Beta hydroxybutyrate [Moles/Vol] 0.3 mmol/L 0 - 0.3 mmol/L [facility] CBC WITH AUTO DIFFERENTIALon 06-08-2020 Basophils (Bld) [#/Vol] 0.02 10*3/uL [facility] Basophils/100 [facility]Bld) 0.2 % [facility] E[facility] (Bld) [#/Vol] 0.02 10*3/uL [facility] Eosinophils/100 WBC (Bld) 0.2 % [facility] Erythrocyte distribution width (RBC) [Entitic vol] 13.4 % 11.6 - 14.8 % [facility] Hematocrit (Bld) [Volume fraction] 37.5 % 36 - 46 % [facility] Hemoglobin (Bld) [Mass/Vol] 13.0 g/dL 12 - 16 g/dL [facility] Immature granulocytes (Bld) [#/Vol] 0.06 10*3/uL [facility] Immature granulocytes/100 WBC (Bld) 0.60 % [facility] Comment on above: The IG parameter is the percentage of metamyelocytes, myelocytes and promyelocytes. An immature granulocyte count (IG) of 1% or more suggests the possibility of infection, an IG count of 3% is very likely related to an infection. Interpretation and review of laboratory results Abnormal [facility] Lymphocytes (Bld) [#/Vol] 0.97 10*3/uL [facility] Lymphocytes/100 WBC (Bld) 10.3 % [facility] MCH (RBC) [Entitic mass] 27.1 pg 26 - 34 pg [facility] MCHC (RBC) [Mass/Vol] 34.7 g/dL 31 - 37 g/dL [facility] MCV (RBC) [Entitic vol] 78.1 fL Low 80 - 100 fL [facility] Monocytes (Bld) [#/Vol] 0.61 10*3/uL [facility] Monocytes/100 WBC (Bld) 6.5 % [facility] Neutrophils (Bld) [#/Vol] 7.76 10*3/uL High [facility] Neutrophils/100 WBC (Bld) 82.2 % [facility] Nucleated RBC (Bld) [#/Vol] 0.01 10*3/uL High [facility] Nucleated RBC/100 WBC (Bld) [Ratio] 0.1 % [facility] Platelet mean volume (Bld) [Entitic vol] 9.2 fL Low 9.4 - 12.4 fL [facility] Platelets (Bld) [#/Vol] 293 10*3/uL [facility] RBC (Bld) [#/Vol] 4.80 10*6/uL [facility] WBC (Bld) [#/Vol] 9.44 10*3/uL [facility] Comprehensive Metabolic Pane [facility] 06-08-2020 Albumin [Mass/Vol] 2.6 g/dL Low 3.2 - 5.2 g/dL [facility] ALP [Catalytic activity/Vol] 68 U/L 40 - 140 U/L [facility] ALT [Catalytic activity/Vol] 20 U/L 14 - 65 U/L [facility] Anion gap [Moles/Vol] 15 mmol/L 10 - 2 0 mmol/L [facility] AST [Catalytic activity/Vol] 17 U/L 0 - 45 U/L [facility] Bilirubin [Mass/Vol] 0.2 mg/dL 0 - 1.3 mg/dL [facility] Calcium [Mass/Vol] 8.5 mg/dL 8.4 - 10. 2 mg/dL [facility] Chloride [Moles/Vol] 112 mmol/L High 98 - 10 8 mmol/L [facility] Creatinine [Mass/Vol] 0.65 mg/dL 0.40 - 1.10 [facility] GFR/1.73 sq M predicted among non-blacks MDRD (S/P/Bld) [Vol rate/Area] The eGFR should be used for monitoring renal function only and not for medication dosing. [facility] GFR/1.73 sq M.predicted CKD-EPI (S/P/Bld) [Vol rate/Area] 122 >=60 mL/min/1.73 m2 [facility] Glucose [Mass/Vol] 255 mg/dL High 65 - 99 mg/dL [facility] HCO3 [Moles/Vol] 12 mmol/L Low 21 - 32 mmol/L [facility] Potassium [Moles/Vol] 3.6 mmol/L 3.5 - 5.1 mmol/L [facility] Protein [Mass/Vol] 5.8 g/dL Low 6 - 8 g/dL [facility] Sodium [Moles/Vol] 135 mmol/L 135 - 145 mmol/L [facility] Urea nitrogen [Mass/Vol] 9 mg/dL 8 - 25 mg/d L [facility] Urea nitrogen/Creatinine [Mass ratio] 13.8 mg/mg [facility] Albumin [Mass/Vol] 2.8 g/dL Low 3.2 - 5.2 g/dL [facility] ALP [Catalytic activity/Vol] 75 U/L 40 - 140 U/L [facility] ALT [Catalytic activity/Vol] 21 U/L 14 - 65 U/L [facility] Anion gap [Moles/Vol] 14 mmol/L 10 - 2 0 mmol/L [facility] AST [Catalytic activity/Vol] 20 U/L 0 - 45 U/L [facility] Bilirubin [Mass/Vol] 0.2 mg/dL 0 - 1.3 mg/dL [facility] Calcium [Mass/Vol] 8.7 mg/dL 8.4 - 10. 2 mg/dL [facility] Chloride [Moles/Vol] 115 mmol/L High 98 - 10 8 mmol/L [facility] Creatinine [Mass/Vol] 0.56 mg/dL 0.40 - 1.10 [facility] GFR/1.73 sq M predicted among non-blacks MDRD (S/P/Bld) [Vol rate/Area] The eGFR should be used for monitoring renal function only and not for medication dosing. [facility] GFR/1.73 sq M.predicted CKD-EPI (S/P/Bld) [Vol rate/Area] 128 >=60 mL/min/1.73 m2 [facility] Glucose [Mass/Vol] 100 mg/dL High 65 - 99 mg/dL [facility] HCO3 [Moles/Vol] 12 mmol/L Low 21 - 32 mmol/L [facility] Potassium [Moles/Vol] 3.7 mmol/L 3.5 - 5.1 mmol/L [facility] Protein [Mass/Vol] 6.3 g/dL 6 - 8 g/dL [facility] Sodium [Moles/Vol] 137 mmol/L 135 - 145 mmol/L [facility] Urea nitrogen [Mass/Vol] 9 mg/dL 8 - 25 mg/d L [facility] Urea nitrogen/Creatinine [Mass ratio] 16.1 mg/mg [facility] Albumin [Mass/Vol] 2.9 g/dL Low 3.2 - 5.2 g/dL [facility] ALP [Catalytic activity/Vol] 76 U/L 40 - 140 U/L [facility] ALT [Catalytic activity/Vol] 22 U/L 14 - 65 U/L [facility] Anion gap [Moles/Vol] 13 mmol/L 10 - 2 0 mmol/L [facility] AST [Catalytic activity/Vol] 18 U/L 0 - 45 U/L [facility] Bilirubin [Mass/Vol] 0.2 mg/dL 0 - 1.3 mg/dL [facility] Calcium [Mass/Vol] 8.4 mg/dL 8.4 - 10. 2 mg/dL [facility] Chloride [Moles/Vol] 115 mmol/L High 98 - 10 8 mmol/L [facility] Creatinine [Mass/Vol] 0.64 mg/dL 0.40 - 1.10 [facility] GFR/1.73 sq M predicted among non-blacks MDRD (S/P/Bld) [Vol rate/Area] The eGFR should be used for monitoring renal function only and not for medication dosing. [facility] GFR/1.73 sq M.predicted CKD-EPI (S/P/Bld) [Vol rate/Area] 123 >=60 mL/min/1.73 m2 [facility] Glucose [Mass/Vol] 124 mg/dL High 65 - 99 mg/dL [facility] HCO3 [Moles/Vol] 13 mmol/L Low 21 - 32 mmol/L [facility] Interpretation and review of laboratory results Abnormal [facility] Potassium [Moles/Vol] 3.3 mmol/L Low 3.5 - 5.1 mmol/L [facility] Protein [Mass/Vol] 6.4 g/dL 6 - 8 g/dL [facility] Sodium [Moles/Vol] 138 mmol/L 135 - 145 mmol/L [facility] Urea nitrogen [Mass/Vol] 8 mg/dL 8 - 25 mg/d L [facility] Urea nitrogen/Creatinine [Mass ratio] 12.5 mg/mg [facility] IRON STUDY WITH FERRITINon 1 08-09-2019 Ferritin [Mass/Vol] 56 ng/mL 13 - 150 ng/mL [facility] Interpretation and review of laboratory results Abnormal [facility] Iron [Mass/Vol] 15 ug/dL Low [facility] Iron binding capacity [Mass/Vol] 254 [facility] Iron saturation [Mass fraction] 6 % Low 20 - 50 % [facility] Magnesiumon 06-08-2020 Magnesium [Mass/Vol] 1.9 mg/dL 1.6 - 2 .4 mg/dL [facility] Otheron 06-08-2020 Interpretation and review of laboratory results Abnormal [facility] Interpretation and review of laboratory results Abnormal [facility] Interpretation and review of laboratory results Normal [facility] Interpretation and review of laboratory results Abnormal [facility] POC Glucoseon 06-08-2020 Glucose [Mass/Vol] 384 mg/dL High 65 - 99 mg/dL [facility] Interpretation and review of laboratory results Abnormal [facility] Glucose [Mass/Vol] 344 mg/dL High 65 - 99 mg/dL [facility] Glucose [Mass/Vol] 131 mg/dL High 65 - 99 mg/dL [facility] Interpretation and review of laboratory results Abnormal [facility] Glucose [Mass/Vol] 143 mg/dL High 65 - 99 mg/dL [facility] Interpretation and review of laboratory results Abnormal [facility] [facility] Glucose [Mass/Vol] 159 mg/dL High 65 - 99 mg/dL [facility] Interpretation and review of laboratory results Abnormal [facility] Glucose [Mass/Vol] 169 mg/dL High 65 - 99 mg/dL [facility] Interpretation and review of laboratory results Abnormal [facility] Glucose [Mass/Vol] 270 mg/dL High 65 - 99 mg/dL [facility] Interpretation and review of laboratory results Abnormal [facility] Glucose [Mass/Vol] 269 mg/dL High 65 - 99 mg/dL [facility] Interpretation and review of laboratory results Abnormal [facility] Glucose [Mass/Vol] 106 mg/dL High 65 - 99 mg/dL [facility] Interpretation and review of laboratory results Abnormal [facility] Glucose [Mass/Vol] 110 mg/dL High 65 - 99 mg/dL [facility] Interpretation and review of laboratory results Abnormal [facility] Glucose [Mass/Vol] 115 mg/dL High 65 - 99 mg/dL [facility] Interpretation and review of laboratory results Abnormal [facility] Glucose [Mass/Vol] 103 mg/dL High 65 - 99 mg/dL [facility] Interpretation and review of laboratory results Abnormal [facility] Glucose [Mass/Vol] 121 mg/dL High 65 - 99 mg/dL [facility] Interpretation and review of laboratory results Abnormal [facility] Glucose [Mass/Vol] 158 mg/dL High 65 - 99 mg/dL [facility] Interpretation and review of laboratory results Abnormal [facility] Glucose [Mass/Vol] 139 mg/dL High 65 - 99 mg/dL [facility] Interpretation and review of laboratory results Abnormal [facility] Phosphoruson 06-08-2020 Phosphate [Mass/Vol] 1.4 mg/dL Low 2.7 - 4 .5 mg/dL [facility] XR CHEST PA/APon 06-08-2020 XR CHEST PA/AP EXAMINATION: PORTABLE AP UPRIGHT CHEST: 06/08/2020 AT 2032 HOURS. HISTORY: Diminished to absent lung sounds on the right. Low-grade fever. COMPARISON FILMS: None. FINDINGS: Patient is somewhat rotated, lordotic. The visualized osseous structures appear intact. The heart size seems normal. The aorta is normal contour. There is some patchy density [id number]-pqhue lung on the right without discrete focal consolidating infiltrates. No pleural effusions, pulmonary edema or pneumothorax. IMPRESSION: 1. Questionable patchy vague densities in the right lower lobe distribution which could be a nonspecific finding however atypical bacterial or viral pneumonia would be difficult to exclude. 2. No acute process otherwise or pleural effusions. [employer] Workstation ID: [id number] Dictated by: MICHAEL DEE on FriJun 08, 2020 9:43:13 PM EST Transcribed by: MORGAN BROWN on FriJun 08, 2020 9:55:57 PM EST Finalized by: MICHAEL DEE on FriJun 08, 2020 10:02:49 PM EST Normal [facility] Comment on above: Order Comment: Injur y/Trauma [...] normal contour. There is some patchy density zfq-yq-rrpwp lung on the right without discrete focal consolidating infiltrates. No pleural effusions, pulmonary edema or pneumothorax. [facility] 1. Questionable patchy vague densities in the right lower lobe distribution which could be a nonspecific finding however atypical bacterial or viral pneumonia would be difficult to exclude. 2. No acute process otherwise or pleural effusions. [employer] Workstation ID: [id number] [facility] Interface, Rad In g[facility] Sedicidodiciq - 06/08/2020 10:05 PM EST EXAMINATION: PORTABLE AP UPRIGHT CHEST: 06/08/2020 AT 2032 HOURS. HISTORY: Diminished to absent lung sounds on the right. Low-grade fever. COMPARISON FILMS: None. FINDINGS: Patient is somewhat rotated, lordotic. The visualized osseous structures appear intact. The heart size seems normal. The aorta is normal contour. There is some patchy density efb-wk-rlehe lung on the right without discrete focal consolidating infiltrates. No pleural effusions, pulmonary edema or pneumothorax. IMPRESSION: 1. Questionable patchy vague densities in the right lower lobe distribution which could be a nonspecific finding however atypical bacterial or viral pneumonia would be difficult to exclude. 2. No acute process otherwise or pleural effusions. [employer] Workstation ID: [id number] [facility] Basic Metabolic Panelon 12-0 Anion gap [Moles/Vol] 16 mmol/L 10 - 2 0 mmol/L [facility] Calcium [Mass/Vol] 8.2 mg/dL Low 8.4 - 10. 2 mg/dL [facility] Chloride [Moles/Vol] 114 mmol/L High 98 - 10 8 mmol/L [facility] Creatinine [Mass/Vol] 0.71 mg/dL 0.40 - 1.10 [facility] GFR/1.73 sq M predicted among non-blacks MDRD (S/P/Bld) [Vol rate/Area] The eGFR should be used for monitoring renal function only and not for medication dosing. [facility] GFR/1.73 sq M.predicted CKD-EPI (S/P/Bld) [Vol rate/Area] 117 >=60 mL/min/1.73 m2 [facility] Glucose [Mass/Vol] 172 mg/dL High 65 - 99 mg/dL [facility] HCO3 [Moles/Vol] 10 mmol/L Low 21 - 32 mmol/L [facility] Interpretation and review of laboratory results Abnormal [facility] Potassium [Moles/Vol] 2.8 mmol/L Low 3.5 - 5.1 mmol/L [facility] Sodium [Moles/Vol] 137 mmol/L 135 - 145 mmol/L [facility] Urea nitrogen [Mass/Vol] 7 mg/dL Low 8 - 25 mg/d L [facility] Urea nitrogen/Creatinine [Mass ratio] 9.9 mg/mg Low [facility] Beta-Hydroxybutyrateon 06-07 Beta hydroxybutyrate [Moles/Vol] 1.8 mmol/L High 0 - 0.3 mmol/L [facility] Interpretation and review of laboratory results Abnormal [facility] Beta hydroxybutyrate [Moles/Vol] 5.6 mmol/L High 0 - 0.3 mmol/L [facility] Interpretation and review of laboratory results Abnormal [facility] CBC WITH AUTO DIFFERENTIALon 06-07-2020 Basophils (Bld) [#/Vol] 0.04 10*3/uL [facility] Basophils/100 WBC (Bld) 0.3 % [facility] Eosinophils (Bld) [#/Vol] 0.00 10*3/uL [facility] Eosinophils/100 WBC (Bld) 0.0 % [facility] Erythrocyte distribution width (RBC) [Entitic vol] 13.5 % 11.6 - 14.8 % [facility] Hematocrit (Bld) [Volume fraction] 46.4 % High 36 - 46 % [facility] Hemoglobin (Bld) [Mass/Vol] 14.7 g/dL 12 - 16 g/dL [facility] Immature granulocytes (Bld) [#/Vol] 0.09 10*3/uL [facility] Immature granulocytes/100 WBC (Bld) 0.60 % [facility] Comment on above: The IG parameter is the percentage of metamyelocytes, myelocytes and promyelocytes. An immature granulocyte count (IG) of 1% or more suggests the possibility of infection, an IG count of 3% is very likely related to an infection. Interpretation and review of laboratory results Abnormal [facility] Lymphocytes (Bld) [#/Vol] 1.42 10*3/uL [facility] Lymphocytes/100 WBC (Bld) 9.1 % [facility] MCH (RBC) [Entitic mass] 27.2 pg 26 - 34 pg [facility] MCHC (RBC) [Mass/Vol] 31.7 g/dL 31 - 37 g/dL [facility] MCV (RBC) [Entitic vol] 85.8 fL 80 - 100 fL [facility] Monocytes (Bld) [#/Vol] 0.82 10*3/uL [facility] Monocytes/100 WBC (Bld) 5.3 % [facility] Neutrophils (Bld) [#/Vol] 13.19 10*3/uL High [facility] Neutrophils/100 WBC (Bld) 84.7 % [facility] Nucleated RBC (Bld) [#/Vol] 0.00 10*3/uL [facility] Nucleated RBC/100 WBC (Bld) [Ratio] 0.0 % [facility] Platelet mean volume (Bld) [Entitic vol] 9.5 fL 9.4 - 12.4 fL [facility] Platelets (Bld) [#/Vol] 302 10*3/uL [facility] RBC (Bld) [#/Vol] 5.41 10*6/uL High [facility] ealth WBC (Bld) [#/Vol] 15.56 10*3/uL [facility] Metabolic Pane galileo 06-07-2020 Albumin [Mass/Vol] 3.4 g/dL 3.2 - 5.2 g/dL [facility] ALP [Catalytic activity/Vol] 94 U/L 40 - 140 U/L [facility] ALT [Catalytic activity/Vol] 27 U/L 14 - 65 U/L [facility] Anion gap [Moles/Vol] 22 mmol/L High 10 - 2 0 mmol/L [facility] AST [Catalytic activity/Vol] 27 U/L 0 - 45 U/L [facility] Bilirubin [Mass/Vol] 0.4 mg/dL 0 - 1.3 mg/dL [facility] Calcium [Mass/Vol] 8.0 mg/dL Low 8.4 - 10. 2 mg/dL [facility] Chloride [Moles/Vol] 113 mmol/L High 98 - 10 8 mmol/L [facility] Creatinine [Mass/Vol] 0.73 mg/dL 0.40 - 1.10 [facility] GFR/1.73 sq M predicted among non-blacks MDRD (S/P/Bld) [Vol rate/Area] The eGFR should be used for monitoring renal function only and not for medication dosing. [facility] GFR/1.73 sq M.predicted CKD-EPI (S/P/Bld) [Vol rate/Area] 113 >=60 mL/min/1.73 m2 [facility] Glucose [Mass/Vol] 199 mg/dL High 65 - 99 mg/dL [facility] HCO3 [Moles/Vol] 6 mmol/L Critically low 21 - 32 mmol/L [facility] Interpretation and review of laboratory results Abnormal [facility] Potassium [Moles/Vol] 4.1 mmol/L 3.5 - 5.1 mmol/L [facility] Protein [Mass/Vol] 7.1 g/dL 6 - 8 g/dL [facility] Sodium [Moles/Vol] 137 mmol/L 135 - 145 mmol/L [facility] Urea nitrogen [Mass/Vol] 11 mg/dL 8 - 25 mg/d L [facility] Urea nitrogen/Creatinine [Mass ratio] 15.1 mg/mg [facility] Hemoglobin A1con 06-07-2020 Average glucose Estimated from glycated hemoglobin mass conc (Bld) 464 mg/dL High 74 - 114 mg/dL [facility] HbA1c (Bld) [Mass fraction] 17.8 % High 4.2 - 5.6 % [facility] Interpretation and review of laboratory results Abnormal [facility] Normal: 4.2% - 5.6% Increased risk for diabetes: 5.7% - 6.4% Diabetes: >= 6.5% Pediatrics: No established reference range Estimated average glucose: 74-114 mg/dL [facility] Magnesium Levelon 06-07-2020 Interpretation and review of laboratory results Normal [facility] Magnesium [Mass/Vol] 2.0 mg/dL 1.6 - 2 .4 mg/dL [facility] POC Glucoseon 06-07-2020 Glucose [Mass/Vol] 135 mg/dL High 65 - 99 mg/dL [facility] Interpretation and review of laboratory results Abnormal [facility] Glucose [Mass/Vol] 164 mg/dL High 65 - 99 mg/dL [facility] Interpretation and review of laboratory results Abnormal [facility] Glucose [Mass/Vol] 190 mg/dL High 65 - 99 mg/dL [facility] Interpretation and review of laboratory results Abnormal [facility] Glucose [Mass/Vol] 180 mg/dL High 65 - 99 mg/dL [facility] Interpretation and review of laboratory results Abnormal [facility] Glucose [Mass/Vol] 159 mg/dL High 65 - 99 mg/dL [facility] Interpretation and review of laboratory results Abnormal [facility] Glucose [Mass/Vol] 172 mg/dL High 65 - 99 mg/dL [facility] Interpretation and review of laboratory results Abnormal [facility] Glucose [Mass/Vol] 200 mg/dL High 65 - 99 mg/dL [facility] Interpretation and review of laboratory results Abnormal [facility] Glucose [Mass/Vol] 201 mg/dL High 65 - 99 mg/dL [facility] Interpretation and review of laboratory results Abnormal [facility] Glucose [Mass/Vol] 228 mg/dL High 65 - 99 mg/dL [facility] Interpretation and review of laboratory results Abnormal [facility] Glucose [Mass/Vol] 238 mg/dL High 65 - 99 mg/dL [facility] Interpretation and review of laboratory results Abnormal [facility] Glucose [Mass/Vol] 178 mg/dL High 65 - 99 mg/dL [facility] Interpretation and review of laboratory results Abnormal [facility] Glucose [Mass/Vol] 186 mg/dL High 65 - 99 mg/dL [facility] Interpretation and review of laboratory results Abnormal [facility] Phosphoruson 06-07-2020 Interpretation and review of laboratory results Abnormal [facility] Phosphate [Mass/Vol] 2.0 mg/dL Low 2.7 - 4 .5 mg/dL [facility] TSH with Reflex Free T4on Interpretation and review of laboratory results Normal [facility] TSH Qn 0.66 m[IU]/L [facility] Vital Signs Date Time Vital Sign Value Performing Clinician Facility 07-04-2023 12:00-0500 Body temperature 98.01 [degF] Letty Yee MD Work Phone: [facility] 07-04-2023 12:00-0500 Diastolic blood pressure 78 mm[Hg] Letty Yee MD Work Phone: [facility] 07-04-2023 12:00-0500 Heart rate 102 /min Letty Yee MD Work Phone: [facility] 07-04-2023 12:00-0500 Respiratory rate 14 /min Letty Yee MD Work Phone: [facility] 07-04-2023 12:00-0500 SaO2% (BldA) [Mass fraction] 99 % Letty Yee MD Work Phone: [facility] 07-04-2023 12:00-0500 Systolic blood pressure 130 mm[Hg] Letty Yee MD Work Phone: [facility] 07-04-2023 02:48-0500 Body mass index (BMI) [Ratio] 21.76 kg/m2 Letty Yee MD Work Phone: [facility] 07-04-2023 02:48-0500 Body weight 64.9 kg Letty Yee MD Work Phone: [facility] 07-03-2023 10:34-0500 Body height 172.7 cm Letty Yee MD Work Phone: [facility] 07-02-2023 19:16-0500 SaO2% (BldA) [Mass fraction] 100 % SAENZAYAH YEE [facility] Comment on above: Performed By: #### VBG #### [facility] ([id number]) [address] [place] [address] 07-02-2023 17:18-0500 Body temperature 98.6 [degF] Letty Yee MD Work Phone: [facility] 07-02-2023 17:18-0500 SaO2% (BldA) [Mass fraction] 100 % Letty Yee MD Work Phone: [facility] 08-01-2020 19:49-0500 Body Temperature 98.01 [degF] [facility] [place] 08-01-2020 19:49-0500 BP Diastolic 94 mm[Hg] [facility] [place] 08-01-2020 19:49-0500 BP Systolic 146 mm[Hg] [facility] [place] 02-02-2021 19:49-0500 Pulse (Heart Rate) 59 /min [facility] 08-01-2020 19:49-0500 Respiratory Rate 18 /min [facility] 08-01-2020 12:00-0500 Pulse Oximetry 92 % [facility] [place] 08-01-2020 06:00-0500 BMI (Body Mass Index) 22.31 kg/m2 [facility] 08-01-2020 06:00-0500 Body weight 58.97 kg [facility] [place] 07-29-2020 20:00-0500 Height 162.6 cm [facility] [place] 07-29-2020 19:50-0500 Respiratory rate NOT REPORTED [facility], [place] 06-10-2020 15:59-0500 Body Temperature 98.1 [degF] Go[facility] 06-10-2020 15:59-0500 BP Diastolic 80 mm[Hg] [facility] 06-10-2020 15:59-0500 BP Systolic 115 mm[Hg] [facility] 06-10-2020 15:59-0500 Pulse (Heart Rate) 67 /min [facility] 06-10-2020 15:59-0500 Pulse Oximetry 99 % [facility] 06-10-2020 15:59-0500 Respiratory Rate 16 /min [facility] 06-10-2020 04:39-0500 BMI (Body Mass Index) 20.18 kg/m2 [facility] 06-10-2020 04:39-0500 Body weight 60.2 kg [facility] 06-07-2020 12:31-0500 Height 172.7 cm [facility] Encounters Encounter Date Encounter Type Care Provider Facility Start: 07-04-2023 End: 07-04-2023 [facility] Start: 07-03-2023 End: 07-05-2023 Evaluation and management of inpatient CHAS DARDEN [facility] Start: 07-02-2023 End: 07-04-2023 Evaluation and management of inpatient SAENZ MIKY YEE [facility] Start: 07-02-2023 ambulatory ARCADIO IGLESIAS [facility] Start: 07-02-2023 End: 07-04-2023 Evaluation and management of inpatient Letty Miky Yee MD Work Phone: [facility] - GEN 7 ICU Comment on above: Diabetic ketoacidosi s without coma associated with type 1 diabetes mellitus ([facility]) (Primary Dx); Type 1 diabetes mellitus with ketoacidosis without coma ([facility]) Start: 06-12-2023 End: 06-13-2023 Evaluation and management of inpatient ARCADIO IGLESIAS Facility:[facility] Start: 05-30-2023 End: 05-30-2023 Emergency department patient visit ARCADIO IGLESIAS Facility:[facility] Start: 03-18-2023 End: 03-20-2023 Evaluation and management of inpatient MARTIN DAVIS [facility] Start: 03-17-2023 End: 03-18-2023 Emergency department patient visit Linn H lang Facility:[facility] Start: 03-16-2023 End: 03-16-2023 ambulatory ARCADIO IGLESIAS Facility:[facility] Start: 08-25-2022 End: 08-26-[address] ARCADIO IGLESIAS Facility:[facility] Start: 03-18-2022 End: 03-18-[address] ARCADIO IGLESIAS Facility:[facility] Start: 12-26-[address] ARCADIO IGLESIAS Facil ity:[facility] Start: 08-17-2020 End: 08-17-2020 Orders Only Uyen Otto Work Phone: [facility] Start: 07-29-2020 End: 08-02-2020 Evaluation and management of inpatient Naomy Morse Work Phone: [facility] Start: 07-29-2020 End: 07-29-2020 Patient encounter procedure [facility] Facility:[facility] Start: 06-07-2020 End: 06-10-2020 Evaluation and management of inpatient PHYSICIAN NO [facility] Start: 06-07-2020 End: 06-10-2020 Evaluation and management of inpatient Goitom Andom Asgedom Work Phone: [facility] Surgical 2 [place] Start: 07-07-2018 End: 07-08-2018 Patient encounter procedure DEFAULT PHYSICIAN Facility:[facility] Procedures Date Procedure Procedure Detail Performing Clinician [...] Start: 07-31-2020 Assay of phosphorus inorganic Chela Georeg Work Phone: Start: 07-31-2020 Basic metabolic pane [...] Phone: Start: 07-30-2020 Glucose blood reagent strip Satn Ana Work Phone: Start: 07-30-2020 Assay of [...] Phone: Start: 07-30-2020 SPECIMEN REJECTION [facility]k [facility] Work Phone: Start: 07-30-2020 End: 07-30-2020 Glucose blood reagent strip Stan Ana Work Phone: Start: 07-30-2020 TOX SCR, COMPLETE BL Ve nkat [facility] Work Phone: Start: 07-30-2020 End: 07-30-2020 Glucose [...] End: 07-30-2020 Glucose blood reagent strip Stan [employer] Work Phone: Start: 07-30-2020 Assay of magnesium [...] count with white cell differential, manual Binh Pniasombol Nolovey Work Phone: Start: 06-09-2020 Glucose [Mass/volume [...] Start: 12-06-2020 HbA1c (Bld) [Mass fraction] A1C [facility] Start: 10-28-2020 HbA1c (Bld) [Mass fraction] A1C test (Diabetic or Prediabetic) [place], [place] Start: 02-29-2020 Influenza vaccination Flu vaccine (#1) [place], [place] Start: 02-29-2020 Influenza vaccination given Sequential Influenza Vaccine (#1) [facility] Start: 08-05-2019 Albumin DL <= 20 mg/L (U) [Mass/Vol] Urine Microalbumin [facility] Start: 2014 Screening for malignant neoplasm of cervix Cervical cancer screen [place], [place] Start: 2012 DTaP/Tdap/Td vaccine (1 - Tdap) DTaP/Tdap/Td vaccine (1 - Tdap) [place], [place] Start: 2011 Diabetic microalbuminuria test Diabetic microalbuminuria test [place], [place] Start: 2011 Hepatitis C antibody, confirmatory test Hepatitis C Screening [facility] Start: 2008 HIV screening [facility] Start: 2005 Adolescent depression screening assessment Depression Screening (PHQ9) [facility] Start: 2003 Diabetic foot examination [facility] Start: 2003 Diabetic retinal exam Diabetic retinal exam [place], [place] Start: 2003 Lipid panel Lipid screen [place], [place] Start: 2003 Ophthalmic examination and evaluation Ophthalmology Exam [facility] Start: 1996 History and physical examination, annual for health maintenance Wellness Visit [facility] Start: 1994 Varicella vaccine (1 of 2 - 2-dose childhood series) Varicella vaccine (1 of 2 - 2-dose childhood series) [place], [place] Start: 1993 Hepatitis C screening Hepatitis C screen [place], [place] Start: 1993 Screening for malignant neoplasm of cervix Pap Smear [facility] Start: 1993 Tetanus vaccination Tetanus: Every 10yrs [facility] End: 08-05-2020 Basic metabolic 2000 panel Basic Metabolic Panel Lab Timed Every 4 Hours (Lab) for 25 Occurrences starting 08/01/2020 until 08/05/2020, 2 completed [place], [place] Comment on above: Every 4 Hours (Lab) for 25 Occurrences s tarting 08/01/2020 until 08/05/2020, 2 completed CBC WITH AUTO DIFFERENTIAL CBC WITH AUTO DIFFERENTIAL Lab Routine Daily until discontinued starting 08/02/2020 [facility] [place] Comment on above: Daily until discontinued starting 2020 Culture[facility] End: 07-30-2020 Drugs of abuse 9 serum w/ reflex Drugs of abuse 9 serum w/ reflex Lab Routine Once for 1 Occurrences starting 07/30/2020 until 07/30/2020 [facility] [place] Comment on above: Once for 1 Occurrences starting 07/30/19 21 until 07/30/2020 Drugs of abuse 9 ser um w/ reflex Drugs of abuse 9 serum w/ reflex Lab Routine 07/30/2020 12:02 PM EST [facility] [place] End: 08-05-2020 Magnesium [Mass/Vol] Magnesium Lab Timed Every 4 Hours (Lab) for 25 Occurrences starting 08/01/2020 until 08/05/2020, 2 completed [facility] [place] Comment on above: Every 4 Hours (Lab) for 25 Occurrences s tarting 08/01/2020 until 08/05/2020, 2 completed End: 07-03-2023 Magnesium [Mass/volume] in Serum or Plasma Magnesium Lab Routine Once for 1 Occurrences starting 07/03/2023 until 07/03/2023 [facility] Work Phone: Comment on above: Once for 1 Occurrences starting 07/03/19 24 until 07/03/2023 Oxygen therapy [[facility] Data Set] Initiate Oxygen Therapy Protocol Respiratory Care Routine Daily until discontinued starting 07/29/2020 [facility] [place] Comment on above: Daily until discontinued starting 2020 End: 08-05-2020 Phosphate [Mass/Vol] Phosphorus Lab Timed Every 4 Hours (Lab) for 25 Occurrences starting 08/01/2020 until 08/05/2020, 2 completed [facility] [place] Comment on above: Every 4 Hours (Lab) for 25 Occurrences s tarting 08/01/2020 until 08/05/2020, 2 completed POCT glucose [facility] [place] Comment on above: 4X Daily (AC & HS) until discontinued st arting 07/31/2020 As Needed until disc ontinued starting 07/31/2020 End: 03-12-2021 POCT Glucose - every hour POCT Glucose - every hour Point of Care Testing Timed Every Hour (Lab) for 980 Occurrences starting 07/30/2020 until 09/08/2020 [facility] Comment on above: Every Hour (Lab) for 980 Occurrences sta rting 07/30/2020 until 09/08/2020 End: 07-30-2020 PREVIOUS SPECIMEN PREVIOUS SPECIMEN Lab Routine Once for 1 Occurrences starting 07/30/2020 until 07/30/2020 [facility] Comment on above: Once for 1 Occurrences starting 07/30/19 21 until 07/30/2020 PREVIOUS SPECIMEN PREVIOUS SPECI MEN Lab Routine 07/30/2020 12:02 PM EST [facility] TOX SCR, COMPLETE BL TOX SCR, CO MPLETE BL Lab Add-On 07/30/2020 10:11 AM BARB [facility] Payers Date Payer Category Payer Unknown [id number] 2015 Medicaid [place] [employer] [employer] [id number] 2015-Present [phone] [place] [id number] 2015 Unknown [employer] [employer]AN [id number] 2015-Present [id number] 1993 Unknown [id number] 1993 Unknown [id number] [id number] 1993 Unknown [id number] [id number] 1993 Unknown [id number] [id number] 1993 Unknown [id number] 2.16.840.1.198685.3.579.2.593 1993 Unknown [id number] 2.16.840.1.512185.3.579.2.593 1993 Unknown [id number] [id number] 1993 Unknown [id number] [id number] 1993 Unknown [id number] 2.16.840.1.922286.3.579.2.718 1993 Unknown [id number] [id number] 1993 Unknown [id number] [id number] 1993 Unknown [id number] 2.16.840.1.313172.3.579.2.1286 1993 Unknown [id number] 2.16.840.1.021464.3.579.2.1286 1993 Unknown [id number] 2.16.840.1.150860.3.579.2.1286 1993 Unknown [id number] [id number] 1959 Self-pay 1961 Unknown [id number] Unknown Social History Date Type Detail Facility Tobacco smoking stat [facility] Unknown if ever smoked [facility] Start: 1995 Sex Assigned At Not on file [facility] Exposure to SARS-CoV -2 (event) Not sure [facility] Start: 07-03-2023 Tobacco smoking stat [facility] Smokes tobacco daily [facility] History of tobacco use Cigarette Smoker P [facility] Start: 06-15-2022 End: 07-03-2023 Cigarettes smoked current (pack per day) - Reported 0.5 [facility] Start: 07-03-2023 Tobacco use and exposure Smoke less tobacco non-user [facility] Start: 07-04-2023 Alcohol intake Current non-dr rotor winder of alcohol (finding) [facility] Start: 06-15-2022 End: 07-04-2023 Social connection and isolation panel [facility] Do you belong to any clubs or organizations such as amish groups, unions, fraternal or athletic groups, or school groups? No [facility] Are you now , , , , never or living with a partner? Patient declined [facility] How often to you hav e a drink containing alcohol? Never [facility] Do you feel stress - tense, restless, nervous, or anxious, or unable to sleep at night because your mind is troubled all the time - these days [OSQ] Not at all [facility] Start: 07-03-2023 Tobacco Comment hasn't smoked in 1 week, one cig per day [facility] Goals Date Patient Goal Desired Activity /State [...] from the original note were not included. [facility] Academic Endocrinology MD [facility] [address] [place] [address] Service Pager: Macy Drew MD, Interim Chief [...] 140-180mg/dL in accordance with recommendations from the [place] [employer]. Blood glucoses above 200 mg/dl are [facility] monitored performance measures. ASSESSMENT and PLAN: Douglas [...] clinic/Endocrinology) within 1-2 weeks of discharge, at [facility], [address], [place] [address]. Need to call to schedule it: . [...] incarceration. Per chart, patient initially presented to [facility] 07/02 via EMS for altered mental [...] I did not find any documentation from crm coordinator follow up. ROS/Subjective/Interval history: Pt was sleepy [...] use, recent incarceration. Patient initially presented to [facility] 07/02 via EMS for altered mental [...] 250cc/hr. Failed to improve requiring transfer to [facility] for higher acuity care in ICU. Upon [...] progress note was completed using a voice pump and blower operator system. Every effort was made to ensure accuracy. However, inadvertent computerized pump and blower operator errors may be present. Ronal Logan MD PGY1 IM Resident [facility] 07/04/23 1:53 PM Associated attestation - Letty Yee MD - 07/04/2023 3:59 PM EST I have seen and examined the patient on rounds with the resident/fellow. I repeated the brown components of the exam. I confirm the note and agree with the assessment and plan except as stated below: Letty Yee MD [facility] Critical Care Medicine Images from the [...] use, recent incarceration. Patient initially presented to [facility] 07/02 via EMS for altered mental [...] 250cc/hr. Failed to improve requiring transfer to [facility] for higher acuity care in ICU. Upon [...] progress note was completed using a voice pump and blower operator system. Every effort was made to ensure accuracy. However, inadvertent computerized pump and blower operator errors may be present. Ronal Logan MD PGY1 IM Resident [facility] 07/03/23 9:58 AM Associated attestation - Letty Yee MD - 07/03/2023 9:06 PM EST I have seen and examined the patient on rounds with the resident/fellow. I repeated the brown components of the exam. I confirm the note and agree with the assessment and plan except as stated below: Letty Yee MD [facility] Critical Care Medicine documented in this encounter [facility] 07-04-2023 Progress note Formatting of t his note might be different from the original. Met with patient, introduced self and explained role as psychiatric orderly/liaison. Began an interview in order to complete [...] meetings. Patient was born and raised in [place] and is a high school graduate. She is with two children, both of whom live with her parents. 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 She currently lives with friends in [place]. Patient has been linked with [facility] for mental health services in the past. She states she is active with NA meetings. Patient is willing to consider recommendations for additional mental health services. Will monitor, assist in coordinating such services as appropriate. - STEPHANIA Ma 07/04/23 3:53 PM [facility] 07-04-2023 Miscellaneous Notes Met with patient, introduced self and explained role as psychiatric orderly/liaison. Began an interview in order to complete [...] meetings. Patient was born and raised in [place] and is a high school graduate. She is with two children, both of whom live with her parents. 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 She currently lives with friends in [place]. Patient has been linked with [facility] for mental health services in the past. [...] Description: INTERVENTIONS: 1. Encourage patient or legal veterans contact representative to report early pain and ask [...] per policy 9. Teach patient or legal veterans contact representative interventions for comforting Outcome: Progressing Note: [...] at the bedside 7. Instruct patient/ patient veterans contact representative about use of safety devices 8. Include patient/ patient veterans contact representative in decisions related to safety Outcome: [...] hygiene technique 7. Identify and instruct patient/patient veterans contact representative in use of appropriate isolation precautions for identified infection/symptoms 8. Provide and discuss with patient/patient veterans contact representative on educational MDRO sheet 9. Encourage and monitor nutritional status daily and consult oyster tonger if indicated 10. Implement neutropenic guidelines as needed 11. Review exposure to history of communicable disease and recent travel history on admission 12. Encourage annual influenza vaccine 13. Encourage pneumonia vaccine Outcome: Progressing Note: Evaluation of progress towards goal: Pt receiving antibiotics. Labs drawn and monitored. Sites assessed and reassessed for s/s of infection. Problem: Knowledge Deficit Goal: Patient/patient veterans contact representative demonstrates understanding of disease process, treatment [...] Score of =/> 25 or indicated by [facility] Assessment Goal: Patient should be free from fall Description: Interventions: 1. [place] to environment 2. Hourly rounds addressing the [...] non-skid footwear 11. Teach patient and patient veterans contact representative to maintain environment for safety and [...] (cane, walker) within reach 19. Request patient veterans contact representative bring adaptive equipment/mobility aids from home or obtain and provide as needed 20. Consult pharmacy regarding effects of med's affecting mobility, cognition, and alternatives 21. Obtain physician order for PT if risk factors associated with mobility are present 22. Obtain physician order for OT as appropriate 23. Utilize diversional activities 24. Educate patient and patient veterans contact representative how to maintain a safe environment during visitation times (notify nurse prior to leaving bedside) 25. Consider appropriateness of medical or non-medical laboratory technical officer 26. Set up voiding schedule as appropriate [...] discharge planning process 5. Communicate referral to management sme as appropriate 6. Communicate referral to oyster tonger as appropriate 7. Collaborate with case management/social welfare research worker for discharge needs Outcome: Progressing Note: [...] supplement as ordered 13. Collaborate with clinical oyster tonger 14. Include patient/ patient's veterans contact representative in decisions related to nutrition Outcome: [...] Description: INTERVENTIONS: 1. Encourage patient or legal veterans contact representative to report early pain and ask [...] per policy 9. Teach patient or legal veterans contact representative interventions for comforting Outcome: Progressing Note: [...] at the bedside 7. Instruct patient/ patient veterans contact representative about use of safety devices 8. Include patient/ patient veterans contact representative in decisions related to safety Outcome: [...] hygiene technique 7. Identify and instruct patient/patient veterans contact representative in use of appropriate isolation precautions for identified infection/symptoms 8. Provide and discuss with patient/patient veterans contact representative on educational MDRO sheet 9. Encourage and monitor nutritional status daily and consult oyster tonger if indicated 10. Implement neutropenic guidelines as needed 11. Review exposure to history of communicable disease and recent travel history on admission 12. Encourage annual influenza vaccine 13. Encourage pneumonia vaccine Outcome: Progressing Note: Evaluation of progress towards goal: Patient is afebrile at present time. Will monitor labs and vital signs. Problem: Knowledge Deficit Goal: Patient/patient veterans contact representative demonstrates understanding of disease process, treatment [...] Score of =/> 25 or indicated by [facility] Assessment Goal: Patient should be free from fall Description: Interventions: 1. [place] to environment 2. Hourly rounds addressing the [...] non-skid footwear 11. Teach patient and patient veterans contact representative to maintain environment for safety and [...] (cane, walker) within reach 19. Request patient veterans contact representative bring adaptive equipment/mobility aids from home or obtain and provide as needed 20. Consult pharmacy regarding effects of med's affecting mobility, cognition, and alternatives 21. Obtain physician order for PT if risk factors associated with mobility are present 22. Obtain physician order for OT as appropriate 23. Utilize diversional activities 24. Educate patient and patient veterans contact representative how to maintain a safe environment during visitation times (notify nurse prior to leaving bedside) 25. Consider appropriateness of medical or non-medical laboratory technical officer 26. Set up voiding schedule as appropriate [...] Description: INTERVENTIONS: 1. Encourage patient or legal veterans contact representative to report early pain and ask [...] per policy 9. Teach patient or legal veterans contact representative interventions for comforting Outcome: Progressing Note: [...] at the bedside 7. Instruct patient/ patient veterans contact representative about use of safety devices 8. Include patient/ patient veterans contact representative in decisions related to safety Outcome: [...] hygiene technique 7. Identify and instruct patient/patient veterans contact representative in use of appropriate isolation precautions for identified infection/symptoms 8. Provide and discuss with patient/patient veterans contact representative on educational MDRO sheet 9. Encourage and monitor nutritional status daily and consult oyster tonger if indicated 10. Implement neutropenic guidelines as needed 11. Review exposure to history of communicable disease and recent travel history on admission 12. Encourage annual influenza vaccine 13. Encourage pneumonia vaccine Outcome: Progressing Note: Evaluation of progress towards goal: Pt is afebrile at this time. CBC being monitored Problem: Knowledge Deficit Goal: Patient/patient veterans contact representative demonstrates understanding of disease process, treatment [...] be free from fall Description: Interventions: 1. [place] to environment 2. Hourly rounds addressing the [...] non-skid footwear 11. Teach patient and patient veterans contact representative to maintain environment for safety and [...] (cane, walker) within reach 19. Request patient veterans contact representative bring adaptive equipment/mobility aids from home or obtain and provide as needed 20. Consult pharmacy regarding effects of med's affecting mobility, cognition, and alternatives 21. Obtain physician order for PT if risk factors associated with mobility are present 22. Obtain physician order for OT as appropriate 23. Utilize diversional activities 24. Educate patient and patient veterans contact representative how to maintain a safe environment during visitation times (notify nurse prior to leaving bedside) 25. Consider appropriateness of medical or non-medical laboratory technical officer 26. Set up voiding schedule as appropriate [...] discharge planning process 5. Communicate referral to management sme as appropriate 6. Communicate referral to oyster tonger as appropriate 7. Collaborate with case management/social welfare research worker for discharge needs Outcome: Progressing Note: [...] Description: INTERVENTIONS: 1. Encourage patient or legal veterans contact representative to report early pain and ask [...] per policy 9. Teach patient or legal veterans contact representative interventions for comforting Outcome: Progressing Note: [...] at the bedside 7. Instruct patient/ patient veterans contact representative about use of safety devices 8. Include patient/ patient veterans contact representative in decisions related to safety Outcome: [...] hygiene technique 7. Identify and instruct patient/patient veterans contact representative in use of appropriate isolation precautions for identified infection/symptoms 8. Provide and discuss with patient/patient veterans contact representative on educational MDRO sheet 9. Encourage and monitor nutritional status daily and consult oyster tonger if indicated 10. Implement neutropenic guidelines as needed 11. Review exposure to history of communicable disease and recent travel history on admission 12. Encourage annual influenza vaccine 13. Encourage pneumonia vaccine Outcome: Progressing Note: Evaluation of progress towards goal: Patient is afebrile at present time. Will monitor labs and vital signs. Problem: Knowledge Deficit Goal: Patient/patient veterans contact representative demonstrates understanding of disease process, treatment [...] Score of =/> 25 or indicated by [facility] Assessment Goal: Patient should be free from fall Description: Interventions: 1. [place] to environment 2. Hourly rounds addressing the [...] non-skid footwear 11. Teach patient and patient veterans contact representative to maintain environment for safety and [...] (cane, walker) within reach 19. Request patient veterans contact representative bring adaptive equipment/mobility aids from home or obtain and provide as needed 20. Consult pharmacy regarding effects of med's affecting mobility, cognition, and alternatives 21. Obtain physician order for PT if risk factors associated with mobility are present 22. Obtain physician order for OT as appropriate 23. Utilize diversional activities 24. Educate patient and patient veterans contact representative how to maintain a safe environment during visitation times (notify nurse prior to leaving bedside) 25. Consider appropriateness of medical or non-medical laboratory technical officer 26. Set up voiding schedule as appropriate [...] with pillow support. documented in this encounter [facility] [employer] 07-04-2023 Hospital course Narrative Images from the [...] use, recent incarceration. Patient initially presented to [facility] 07/02 via EMS for altered mental [...] 250cc/hr. Failed to improve requiring transfer to [facility] for higher acuity care in ICU. Upon [...] 1-2 weeks of discharge Follow up with crm coordinator within 3 days of discharge No future [...] except as stated below: Letty Yee MD [facility] Critical Care Medicine documented in this encounter [facility] 07-04-2023 Plan of care note Discharge Against [...] lantus 20 BID Ronal Logan MD PGY-1 [email or web address] 07-04-2023 Hospital Discharge instructions Ronal Logan MD [...] manage your T1DM. documented in this encounter [email or web address] 07-04-2023 Plan of care note Problem: Pain Goal: Patient goal is pain score less than 4, able to rest, and participant in treatment plan as appropriate Description: INTERVENTIONS: 1. Encourage patient or legal veterans contact representative to report early pain and ask [...] per policy 9. Teach patient or legal veterans contact representative interventions for comforting Outcome: Progressing Note: [...] at the bedside 7. Instruct patient/ patient veterans contact representative about use of safety devices 8. Include patient/ patient veterans contact representative in decisions related to safety Outcome: [...] hygiene technique 7. Identify and instruct patient/patient veterans contact representative in use of appropriate isolation precautions for identified infection/symptoms 8. Provide and discuss with patient/patient veterans contact representative on educational MDRO sheet 9. Encourage and monitor nutritional status daily and consult oyster tonger if indicated 10. Implement neutropenic guidelines as needed 11. Review exposure to history of communicable disease and recent travel history on admission 12. Encourage annual influenza vaccine 13. Encourage pneumonia vaccine Outcome: Progressing Note: Evaluation of progress towards goal: Pt receiving antibiotics. Labs drawn and monitored. Sites assessed and reassessed for s/s of infection. Problem: Knowledge Deficit Goal: Patient/patient veterans contact representative demonstrates understanding of disease process, treatment [...] be free from fall Description: Interventions: 1. [place] to environment 2. Hourly rounds addressing the [...] non-skid footwear 11. Teach patient and patient veterans contact representative to maintain environment for safety and [...] (cane, walker) within reach 19. Request patient veterans contact representative bring adaptive equipment/mobility aids from home or obtain and provide as needed 20. Consult pharmacy regarding effects of med's affecting mobility, cognition, and alternatives 21. Obtain physician order for PT if risk factors associated with mobility are present 22. Obtain physician order for OT as appropriate 23. Utilize diversional activities 24. Educate patient and patient veterans contact representative how to maintain a safe environment during visitation times (notify nurse prior to leaving bedside) 25. Consider appropriateness of medical or non-medical laboratory technical officer 26. Set up voiding schedule as appropriate [...] discharge planning process 5. Communicate referral to management sme as appropriate 6. Communicate referral to oyster tonger as appropriate 7. Collaborate with case management/social welfare research worker for discharge needs Outcome: Progressing Note: [...] supplement as ordered 13. Collaborate with clinical oyster tonger 14. Include patient/ patient's veterans contact representative in decisions related to nutrition Outcome: [...] carballo care done prn and per policy. [facility] [employer] [facility] 07-03-2023 Plan of care note Problem: Pain Goal: Patient goal is pain score less than 4, able to rest, and participant in treatment plan as appropriate Description: INTERVENTIONS: 1. Encourage patient or legal veterans contact representative to report early pain and ask [...] per policy 9. Teach patient or legal veterans contact representative interventions for comforting Outcome: Progressing Note: [...] at the bedside 7. Instruct patient/ patient veterans contact representative about use of safety devices 8. Include patient/ patient veterans contact representative in decisions related to safety Outcome: [...] hygiene technique 7. Identify and instruct patient/patient veterans contact representative in use of appropriate isolation precautions for identified infection/symptoms 8. Provide and discuss with patient/patient veterans contact representative on educational MDRO sheet 9. Encourage and monitor nutritional status daily and consult oyster tonger if indicated 10. Implement neutropenic guidelines as needed 11. Review exposure to history of communicable disease and recent travel history on admission 12. Encourage annual influenza vaccine 13. Encourage pneumonia vaccine Outcome: Progressing Note: Evaluation of progress towards goal: Patient is afebrile at present time. Will monitor labs and vital signs. Problem: Knowledge Deficit Goal: Patient/patient veterans contact representative demonstrates understanding of disease process, treatment [...] Score of =/> 25 or indicated by [facility] Assessment Goal: Patient should be free from fall Description: Interventions: 1. [place] to environment 2. Hourly rounds addressing the [...] non-skid footwear 11. Teach patient and patient veterans contact representative to maintain environment for safety and [...] (cane, walker) within reach 19. Request patient veterans contact representative bring adaptive equipment/mobility aids from home or obtain and provide as needed 20. Consult pharmacy regarding effects of med's affecting mobility, cognition, and alternatives 21. Obtain physician order for PT if risk factors associated with mobility are present 22. Obtain physician order for OT as appropriate 23. Utilize diversional activities 24. Educate patient and patient veterans contact representative how to maintain a safe environment during visitation times (notify nurse prior to leaving bedside) 25. Consider appropriateness of medical or non-medical laboratory technical officer 26. Set up voiding schedule as appropriate [...] turned every 2 hours with pillow support. [facility] 07-03-2023 Consult note Associated Order (s): IP CONSULT TO ENDOCRINOLOGY Images from the original note were not included. [facility] Endocrinology MD [facility] [address] [place] [address] Service Pager: Macy Drew MD, Interim Chief [...] 140-180mg/dL in accordance with recommendations from the [place] [employer]. Blood glucoses above 200 mg/dl [...] incarceration. Per chart, patient initially presented to [facility] 07/02 via EMS for altered mental [...] I did not find any documentation from crm coordinator follow up. Diabetes History: Duration of Diabetes: [...] Asthma Depression Diabetes mellitus type I ([facility]) DM type 1 (diabetes mellitus, type 1) ([facility]) Genital herpes GERD (gastroesophageal reflux disease) Herpes [...] (0.1 mEq/mL premix), 10 mEq, intravenous, PRN, oRnal Logan MD prochlorperazine (COMPAZINE) injection 5 mg, [...] >16.5 (H) 06/07/2021 Catrina Longo PA-C 07/03/23 1352 [facility] 07-03-2023 Consult note Associated Order (s): IP CONSULT TO ENDOCRINOLOGY Images from the original note were not included. [facility] Endocrinology MD [facility] [address] [place] [address] Service Pager: Macy Drew MD, Interim Chief [...] 140-180mg/dL in accordance with recommendations from the [place] [employer]. Blood glucoses above 200 mg/dl [...] incarceration. Per chart, patient initially presented to [facility] 07/02 via EMS for altered mental [...] I did not find any documentation from crm coordinator follow up. Diabetes History: Duration of Diabetes: [...] Asthma Depression Diabetes mellitus type I ([facility]) DM type 1 (diabetes mellitus, type 1) ([facility]) Genital herpes GERD (gastroesophageal reflux disease) Herpes [...] >16.5 (H) 06/07/2021 Catrina Longo PA-C 07/03/23 [id number] documented in this encounter [facility] 07-03-2023 Plan of care note Problem: Pain Goal: Patient goal is pain score less than 4, able to rest, and participant in treatment plan as appropriate Description: INTERVENTIONS: 1. Encourage patient or legal veterans contact representative to report early pain and ask [...] per policy 9. Teach patient or legal veterans contact representative interventions for comforting Outcome: Progressing Note: [...] at the bedside 7. Instruct patient/ patient veterans contact representative about use of safety devices 8. Include patient/ patient veterans contact representative in decisions related to safety Outcome: [...] hygiene technique 7. Identify and instruct patient/patient veterans contact representative in use of appropriate isolation precautions for identified infection/symptoms 8. Provide and discuss with patient/patient veterans contact representative on educational MDRO sheet 9. Encourage and monitor nutritional status daily and consult oyster tonger if indicated 10. Implement neutropenic guidelines as needed 11. Review exposure to history of communicable disease and recent travel history on admission 12. Encourage annual influenza vaccine 13. Encourage pneumonia vaccine Outcome: Progressing Note: Evaluation of progress towards goal: Pt is afebrile at this time. CBC being monitored Problem: Knowledge Deficit Goal: Patient/patient veterans contact representative demonstrates understanding of disease process, treatment [...] Score of =/> 25 or indicated by [facility] Assessment Goal: Patient should be free from fall Description: Interventions: 1. [place] to environment 2. Hourly rounds addressing the [...] non-skid footwear 11. Teach patient and patient veterans contact representative to maintain environment for safety and [...] (cane, walker) within reach 19. Request patient veterans contact representative bring adaptive equipment/mobility aids from home or obtain and provide as needed 20. Consult pharmacy regarding effects of med's affecting mobility, cognition, and alternatives 21. Obtain physician order for PT if risk factors associated with mobility are present 22. Obtain physician order for OT as appropriate 23. Utilize diversional activities 24. Educate patient and patient veterans contact representative how to maintain a safe environment during visitation times (notify nurse prior to leaving bedside) 25. Consider appropriateness of medical or non-medical laboratory technical officer 26. Set up voiding schedule as appropriate [...] discharge planning process 5. Communicate referral to management sme as appropriate 6. Communicate referral to oyster tonger as appropriate 7. Collaborate with case management/social welfare research worker for discharge needs Outcome: Progressing Note: [...] place. Skin is kept clean and dry. [facility] 07-02-2023 Plan of care note Problem: Pain Goal: Patient goal is pain score less than 4, able to rest, and participant in treatment plan as appropriate Description: INTERVENTIONS: 1. Encourage patient or legal veterans contact representative to report early pain and ask [...] per policy 9. Teach patient or legal veterans contact representative interventions for comforting Outcome: Progressing Note: [...] at the bedside 7. Instruct patient/ patient veterans contact representative about use of safety devices 8. Include patient/ patient veterans contact representative in decisions related to safety Outcome: [...] hygiene technique 7. Identify and instruct patient/patient veterans contact representative in use of appropriate isolation precautions for identified infection/symptoms 8. Provide and discuss with patient/patient veterans contact representative on educational MDRO sheet 9. Encourage and monitor nutritional status daily and consult oyster tonger if indicated 10. Implement neutropenic guidelines as needed 11. Review exposure to history of communicable disease and recent travel history on admission 12. Encourage annual influenza vaccine 13. Encourage pneumonia vaccine Outcome: Progressing Note: Evaluation of progress towards goal: Patient is afebrile at present time. Will monitor labs and vital signs. Problem: Knowledge Deficit Goal: Patient/patient veterans contact representative demonstrates understanding of disease process, treatment [...] Score of =/> 25 or indicated by [facility] Assessment Goal: Patient should be free from fall Description: Interventions: 1. [place] to environment 2. Hourly rounds addressing the [...] non-skid footwear 11. Teach patient and patient veterans contact representative to maintain environment for safety and [...] (cane, walker) within reach 19. Request patient veterans contact representative bring adaptive equipment/mobility aids from home or obtain and provide as needed 20. Consult pharmacy regarding effects of med's affecting mobility, cognition, and alternatives 21. Obtain physician order for PT if risk factors associated with mobility are present 22. Obtain physician order for OT as appropriate 23. Utilize diversional activities 24. Educate patient and patient veterans contact representative how to maintain a safe environment during visitation times (notify nurse prior to leaving bedside) 25. Consider appropriateness of medical or non-medical laboratory technical officer 26. Set up voiding schedule as appropriate [...] turned every 2 hours with pillow support. [facility] 07-02-2023 History and physical note Images from the original note were not included. Adult ICU History & Physical Patient - Douglas Cordova Age - 28 y.o. [facility] 1995 [id number] Date of Admission - 07/02/2023 4:55 PM Chief Complaint Altered mental status, nausea vomititng, symptomatic hyperglycemia History of Present Illness Douglas Cordova is a 28 y.o. female with a past medical history of uncontrolled T1DM d/t insulin noncompliance, numerous DKA exacerbations requiring multiple ICU admissions, diabetic neuropathy, psoriasis, adhd, hx of methamphetamine use, recent incarceration. Patient initially presented to [facility] 07/02 via EMS for altered mental [...] 250cc/hr. Failed to improve requiring transfer to [facility] for higher acuity care in ICU. Upon [...] Asthma Depression Diabetes mellitus type I ([facility]) DM type 1 (diabetes mellitus, type 1) ([facility]) Genital herpes GERD (gastroesophageal reflux disease) Herpes [...] progress note was completed using a voice pump and blower operator system. Every effort was made to ensure accuracy. However, inadvertent computerized pump and blower operator errors may be present. Ronal Logan MD PGY1 IM Resident [facility] Internal Medicine 07/02/23 5:26 PM Associated attestation - Letty Yee MD - 07/03/2023 9:04 PM EST I have seen and examined the patient on rounds with the resident/fellow. I repeated the brown components of the exam. I confirm the note and agree with the assessment and plan except as stated below: Letty Yee MD [facility] Physicians Critical Care Medicine [facility] 07-02-2023 History and physical note Images from the original note were not included. Adult ICU History & Physical Patient - Douglas Cordova Age - 28 y.o. - 1995 [facility] [id number] Date of Admission - 07/02/2023 4:55 PM Chief Complaint Altered mental status, nausea vomititng, symptomatic hyperglycemia History of Present Illness Douglas Cordova is a 28 y.o. female with a past medical history of uncontrolled T1DM d/t insulin noncompliance, numerous DKA exacerbations requiring multiple ICU admissions, diabetic neuropathy, psoriasis, adhd, hx of methamphetamine use, recent incarceration. Patient initially presented to [facility] 07/02 via EMS for altered mental [...] 250cc/hr. Failed to improve requiring transfer to [facility] for higher acuity care in ICU. Upon [...] Anxiety Asthma Depression Diabetes mellitus type I ([facility]) DM type 1 (diabetes mellitus, type 1) ([facility]) Genital herpes GERD (gastroesophageal reflux disease) Herpes [...] progress note was completed using a voice pump and blower operator system. Every effort was made to ensure accuracy. However, inadvertent computerized pump and blower operator errors may be present. Ronal Logan MD PGY1 IM Resident [facility] Internal Medicine 07/02/23 5:26 PM Associated attestation - Letty Yee MD - 07/03/2023 9:04 PM EST I have seen and examined the patient on rounds with the resident/fellow. I repeated the brown components of the exam. I confirm the note and agree with the assessment and plan except as stated below: Letty Yee MD [facility] Physicians Critical Care Medicine documented in this encounter [facility] 06-16-2023 Note [id number] Education Materials Endocrinology Hyperglycemia [...] instructions at home: General instructions ? Take [id number] and prescription medicines only as told by [...] have diabetes. Where to find more information [place] [employer]: www.diabetes.org Contact a doctor if: [...] or act (ment (more content not included)... [facility] Evaluation note Diagnosis DKA (diabetic ketoacidosis) ([facility] Primary Type II or unspecified type diabetes mellitus with ketoacidosis, not stated as uncontrolled Diabetic ketoacidosis without coma associated with type 1 diabetes mellitus ([facility]) Type 1 diabetes mellitus with ketoacidosis without coma ([facility]) documented in this encounter [facility] Summary Purpose Family History No Family History Records FoundNo Family History Records FoundNo Family History Records FoundNo Family History Records FoundNo Family History Records FoundNo Family History Records FoundNo Family History Records FoundNo Family History Records Found Advance Directives No Advanced Directives Records FoundDocuments on File Type Date Recorded Patient Senior Ui Web Developer Expl anation Advance Directives and Livin g Will 06/07/2020 12:33 PM Latest Code Status on File Code Status Date Activated Date Inactivated Comments Full Code 06/07/2020 11:23 AM 06/10/2020 7:35 PM Full Code 06/07/2020 11:21 AM 06/07/2020 11:23 AM Latest Code Status on File Code Status Date Activated Date Inactivated Comments Full Code 07/29/2020 6:56 PM Documents on File Type Date Recorded Patient Senior Ui Web Developer Expl anation Advance Directives and Livin g [...] HOSPITALIST DISCHARGE SUMMARY Patient: Douglas Cordova Account: [id number] Admitted: 06/07/2020 Discharge Date/Time: 06/10/2020 Clinical Summary REASON FOR HOSPITALIZATION/HPI: Douglas Cordova is a 25 y.o. female patient of No primary care provider on file. with history of DM1 presented with hyperglycemia. DIAGNOSES: DKA from [facility], non compliance with her home insulin -DKA pathway initiated. -Resolved -Transition to Lantus, and Humalog -A1c1 7.8 -Patient seen by management sme -Stable for discharge home although her sugars [...] No acute process otherwise or pleural effusions. [employer] Workstation ID: [id number] Procedures No orders of the defined types were placed in this encounter. Consults Procedures Inpatient consult to Offset Platemaker Inpatient consult to Dietitian Inpatient consult to Care Management Other Tests No orders of the defined types were placed in this encounter. Allergies Penicillins and Shellfish derived Discharge Diet Diet Special; Diabetic; Carbohydrate Consistent 60g/meal (3355-0447 kCal equivalent) Disposition Discharge Medications Medication List [...] Medications These medications were sent to [facility] [address] [id number] insulin glargine 100 unit/mL injection insulin lispro 100 unit/mL injection Physician(s) Family: Physician No, Phone: None, Address: [facility] Follow Up: PCP Follow up in 3 [...] Diabetic Diet please contact Central Scheduling at [phone] to set up an outpatient appointment with a Registered Dietitian. Please check out [place] [employer] at www.diabetes.org for more resources. * Attachments The following attachments cannot be sent through Care Everywhere. * Carbohydrates: General Info (Belarusian) * Diabetes: Counting Carbohydrates (Bel[place]ian) * Low Carbohydrate Foods: General Info ([place]ian) * Diabetic Ketoacidosis (DKA) ([place]ian) documented in this encounter History of Present [...] with hyperglycemia. Impression and Plan: DKA from [facility], non compliance with her home insulin, resolved. [...] to follow up Atelectasis CXR reviewed IS [employer] activity HypoPO4 Replacement ordered HypoK [...] with discharge needs and insulin. Dietary and health promotion educator has already been consulted. 0900: Spoke with Shu Barahona, management sme and she is going in to speak [...] family are not able to come from [place], [place] to visit her due to the [...] for Future Visits: Pt aware to contact Bumper Machine Operator as needed, PRN Visit 1-2 times every 7 days or consult Pastoral Care PRN. Rev. Shannon Parekh MDiv. Staff [facility] Contact * Binh Virk MD - 06/08/2020 9:36 AM EST DAILY PROGRESS NOTE Douglas Cordova is a 25 y.o. female patient of No primary care provider on file. with history of DM1 presented with hyperglycemia. Impression and Plan: DKA from [facility], non compliance with her home insulin, improving [...] Parks RN - 06/07/2020 1:44 PM EST 1342 Patient moaning in pain and complaining of being hot after eating a full liquid lunch. zofran given with lunch. Patient is not a good historian or does not offer much information when asked. Per report from [facility] in [place] stated patient stopped taking her insulin 3 [...] Jin RN - 08/02/2020 12:31 AM EST Hall Cleaner perfect serve message Internal Medicine to notify primary did elope and leave hospital. Alsonotified patient did leave jewelry in room and will send to security. * Felicity Jin RN - 08/01/2020 10:25 PM EST Hall Cleaner called Nursing Bee Breeder Pamela to notify patient left unit at 2030 and has not return. Patient did sign policy on patient's remaining of unit form. Also notified patient did state to commercial lines underwriter shewas not leaving AMA. Patient's jewelry still present in room. Pamela states to wait till midnight to remove patient off unit. * Felicity Jin RN - 08/01/2020 8:30 PM EST Patient requested to walk off the unit.. Hall Cleaner notified patient policy on patients remaining on unit. Patient states she is not leaving AMA and does disregard warnings against leaving the unit. Patient did sign policy on patient's remaining on their unit form and witness by commercial lines underwriter and place in alexander ent's chart. * Damien Olivarez MD - 08/01/2020 7:06 PM EST [facility] Department of Internal Medicine - Staff Internal Medicine Service ICU PATIENT TRANSFER NOTE Patient: Douglas Sousa Date of : 1995 Acct: [id number] Admit date: 07/29/2020 Code Status:- Full code [...] at goal (HCC) [E10.10] and presented to [facility] with C/O abdominal pain, nausea and vomiting and was found to be in DKA. Patient was started on DKA protocol, on IV fluids and received 1 dose of Rocephin and azithromycin due to elevated white count. Patient was transferred to [facility] for further evaluation and management. In the [...] issues concerning noncompliance, patient might benefit from high school social science teacher consult. Depression: History of depression in the past, stopped taking antidepressant by herself. Recommend psych eval. DVT prophylaxis: Lovenox 40 mg. PT/OT/SW: Consulted Discharge planning: clinical project manager consulted Damien Olivarez MD Department of Internal Medicine [facility] [place] 08/01/2020, 7:06 PM Associated attestation - Naomy [...] at home, advised to follow-up with her crm coordinator/PCP Advised to be compliant with medical recommendations Naomy Morse MD Attending Physician, Internal Medicine Service Internal Medicine Residency Program 08/01/2020, 10:21 PM * Vikki Weber MD - 08/01/2020 11:35 AM EST Critical care team - Resident sign-out to medicine service Date and time: 08/01/2020 11:35 AM Patient's name: Douglas Sousa Patient's account/billing number: [id number] Patient's Date of : 1995 Age: 25 [...] floor. Vikki Weber MD Internal Medicine Resident [facility] 08/01/2020 11:35 AM * Edi Latham MD - 08/01/2020 11:29 AM EST Critical Care Team - Daily Progress Note Date and time: 08/01/2020 11:29 AM Patient's name: Douglas Sousa Patient's account/billing number: [id number] Patient's Date of : 1995 Age: 25 [...] Date 08/01/20 0000 - 08/01/20 2359 Shift [id number] [phone] 24 Hour Total INTAKE P.O.(mL/kg/hr) 400(0.8) 500 [...] HCO3 12.9 Lab Results Component Value Date [id number] 14 07/30/2020 FIO2 35.0 07/30/2020 Lactic Acid: [...] No results for input(s): LABIRON, TIBC, FERRITIN, NYEJFHHR20, FOLATE, OCCULTBLD in the last 72 hours. [...] access Vikki Weber MD Internal Medicine Resident [facility] 08/01/2020 11:34 AM Attending Physician Statement [...] this chart was generated using voice recognition [employer] dictation software. Although every effort was made to ensure the accuracy of this automated pump and blower operator, some errors in pump and blower operator may have occurred. * Edi Latham MD - 07/31/2020 8:37 AM EST Critical Care Team - Daily Progress Note Date and time: 07/31/2020 8:43 AM Patient's name: Douglas Sousa Patient's account/billing number: [id number] Patient's Date of : 1995 Age: 25 [...] Date 07/31/20 0000 - 07/31/20 2359 Shift [phone] 24 Hour Total INTAKE I.V.(mL/kg) 1058(18.5) 1062.4(18.6) [...] HCO3 12.9 Lab Results Component Value Date [id number] 14 07/30/2020 FIO2 35.0 07/30/2020 Lactic Acid: [...] No results for input(s): LABIRON, TIBC, FERRITIN, [id number], FOLATE, OCCULTBLD in the last 72 hours. [...] M.D. Department of Internal Medicine/ Critical care [facility]) 07/31/2020, 8:43 AM Attending Physician Statement [...] this chart was generated using voice recognition [employer] dictation software. Although every effort was made to ensure the accuracy of this automated pump and blower operator, some errors in pump and blower operator may have occurred. * Chela Vazquez MD - 07/30/2020 9:09 AM EST Critical Care Team - Daily Progress Note Date and time: 07/30/2020 9:09 AM Patient's name: Douglas Sousa Patient's account/billing number: [id number] Patient's Date of : 1995 Age: 25 [...] Date 07/30/20 0000 - 07/30/20 2359 Shift [phone] 24 Hour Total INTAKE I.V.(mL/kg) 2655(49.6) 2655(49.6) [...] HCO3 12.9 Lab Results Component Value Date [id number] 14 07/30/2020 FIO2 35.0 07/30/2020 Lactic Acid: [...] No results for input(s): LABIRON, TIBC, FERRITIN, [id number], FOLATE, OCCULTBLD in the last 72 hours. [...] M.D. 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, uncontrolled Reason for Referral Specialty Diagnoses / Procedures Referred By Contac t Referred To Contact Procedures Discharge Follow-Up Ronal Logan MD [address] [place] [address], [address] [place] [address] Referral ID Status Reason Start Date Expiration Date V isits Requested Visits Authorized [id number] Pending Review 07/04/2023 07/03/2024 1 1 Specialty Diagnoses / Procedures Referred By Contac t Referred To Contact Diagnoses Diabetic ketoacidosis without coma associated with type 1 diabetes mellitus ([facility]) Procedures Follow-up with primary care provider Ronal Logan MD [address] [place] [address], [address] [place] [address] Referral ID Status Reason Start Date Expiration Date V isits Requested Visits Authorized [id number] Pending Review 07/04/2023 07/03/2024 1 1 Specialty Diagnoses / Procedures Referred By Contac t Referred To Contact Procedures No dressing needed Ronal Logan MD [address] [place] [address], [address] [place], [place] [id number] Referral ID Status Reason Start Date Expiration Date V isits Requested Visits Authorized [id number] Pending Review 07/04/2023 07/03/2024 1 1 Specialty Diagnoses / Procedures Referred By Contac t Referred To Contact Procedures Adult diet Ronal Logan MD [address] [place] [address], [address] [place], [place] [phone] Referral ID Status Reason Start Date Expiration Date V isits Requested Visits Authorized [id number] Pending Review 07/04/2023 07/03/2024 1 1 Additional Source Comments INFORMATION SOURCE (unrecogn ized section and content) DATE CREATED AUTHOR 07/08/2018 [facility] DATE CREATED AUTHOR AUTHOR'S ORGANIZ ATION 06/14/2020 [facility] DATE CREATED AUTHOR AUTHOR'S ORGANIZ ATION 08/02/2020 [facility] DATE CREATED AUTHOR AUTHOR'S ORGANIZ ATION 09/18/2022 [facility] DATE CREATED AUTHOR AUTHOR'S ORGANIZ ATION 04/02/2023 [facility] DATE CREATED AUTHOR AUTHOR'S ORGANIZ ATION 07/03/2023 [facility] DATE CREATED AUTHOR AUTHOR'S ORGANIZ ATION 07/06/2023 [facility] DATE CREATED AUTHOR AUTHOR'S ORGANIZ ATION [facility] Reason for Visit (unrecogniz ed section and content) Status Reason Specialty Diagnoses / Procedures Referre d By Contact Referred To Contact Diagnoses DKA, type 1, not at goal (HCC) DKA Status Reason Specialty Diagnoses / Procedures Referre d By Contact Referred To Contact Diagnoses DKA, type 1, not at goal (HCC) DKA Stan Perez MD [address] [place] [id number] [facility] Specialty Diagnoses / Procedures Referred By Contac t Referred To Contact Diagnoses DKA (diabetic ketoacidosis) ([facility]) Tachycardia 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 (Family); System, Provider Not In (Referring) Perpetual Assessment: Douglas Cordova is a 25 y.o. female patient of No primary care provider on file. with history of DM1 presented with hyperglycemia. Impression and Plan: DKA from [facility], non compliance with her home insulin On [...] much information when asked. Per report from [facility] in [place] stated patient stopped taking her insulin 3 [...] Cordova Date of : 1995 Sex: Female Body Coverer f2f with patient. Patient reports she is linked with an crm coordinator and a primary care physician. She will speak with them about changing insulin if needed. Body Coverer did speak with patient about ride home, explained she can have amb[employer]lette transportation but has to have discharge orders in. Patient denied other needs. Associated Order(s): IP CONSULT TO GLOBAL LOGISTICS MANAGER Reviewed lab results: Blood sugar trends: [phone] [...] take care of her. 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 Medications: Levemir 12 units [...] She states she has an appointment in [facility]. 2. Patient verbalizes that she [...] type 1. Pt found in DKA from [facility] d/t non-compliance with her home insulin, hypoPO4, [...] 0.9 % Lisa Moore RD, LD Office: [phone] documented in this encounter Plan of Care [...] Goal: Knowledge of Enviroment Outcome: Partially Met [id number] goggles gloves Pt not wearing a [...] Comment: bs 149, order placed by PA crm coordinator) insulin glargine (LANTUS, SEMGLEE) injection pen 20 [...] Leigh RN)1857 (Stop Bag - Provider: Laura Liegh RN) dextrose 5 % and sodium chloride [...] Shipman RN)1946 (Rate/Dose Change - Provider: Evelyn Rhodes RN)2138 (Rate/Dose Change - Provider: Evelyn Rhodes [...] to dextrose-containing formulation, DO NOT change to [id number] IV fluid if blood glucose exceeds 250 [...] of water. 1154 (See Alternative - Provider: Anurag Shipman [...] Care Teams (unrecognized sec tion and content) Inclusion Internship Relationship Specialty Start Date End Date Arcadio Iglesias MD [address] [place] [address] PCP - General Family Medicine 06/10/23 FOR [...] BE BASED ON THE PRIMARY CLINICAL RECORDS. [employer] provides no warranty or guarantee of the accuracy or completeness of information in this document.
[2023-07-13] MEDS: INSULIN REGULAR 300 UNITS/3 ML 10 UNIT IV (19:45)
[2023-07-13] MEDS: SODIUM CHLORIDE 0.45 % 1,000 ML 150 ML IV (19:50)
[2023-07-13 19:59] LABS: Glucometer 302 mg/dL (74-106)
[2023-07-13] MEDS: INSULIN ASPART 300 UNIT/3 ML PEN SUBQ (20:09)
[2023-07-13 20:50] LABS: Anion Gap 25.9; BUN Creatinine Ratio 11.4; Calcium 6.4 mg/dL (8.5-10.1); Carbon Dioxide 6.3 mmol/L (21.0-32.0); Chloride 99 mmol/L (98-107); Estimated GFR (African America >60 (>=60); Estimated GFR (Non-African Ame >60 (>=60); Glucose 366 mg/dL (74-106); Potassium 4.2 mmol/L (3.5-5.1); Sodium 127 mmol/L (136-145)
[2023-07-13] MEDS: INSULIN DETEMIR 300 UNIT/3 ML INSULN.PEN 20 UNIT SUBQ (21:31)
[2023-07-13] MEDS: POTASSIUM CHLORIDE 10 MEQ IN WATER 100 ML PIGGYBACK IV (21:36)
[2023-07-14] VITALS (34 sets, daily range): BP systolic 113–152; BP diastolic 69–113; PULSE 78–115; RESP 0–26; TEMP 36.5–36.8; O2SAT 93–100
[2023-07-14 00:49] LABS: Glucometer 284 mg/dL (74-106)
[2023-07-14] MEDS: INSULIN ASPART 300 UNIT/3 ML PEN SUBQ ×5 (00:52→15:38)
[2023-07-14 01:23] LABS: Anion Gap 22.1; BUN Creatinine Ratio 14.9; Carbon Dioxide 9.6 mmol/L (21.0-32.0); Chloride 103 mmol/L (98-107); Estimated GFR (African America >60 (>=60); Estimated GFR (Non-African Ame >60 (>=60); Glucose 339 mg/dL (74-106); Potassium 3.7 mmol/L (3.5-5.1); Sodium 131 mmol/L (136-145)
[2023-07-14 04:28] LABS: Glucometer 258 mg/dL (74-106)
[2023-07-14 05:15] LABS: Basophils Percent Auto 0.2 % (0.2-2.0); Eosinophils Absolute Auto 0.1 10^3/uL (0.0-0.7); Eosinophils Percent Auto 0.9 % (0.9-7.0); Hematocrit 32.3 % (36.0-48.0); Hemoglobin 10.1 g/dL (12.0-16.0); Immature Granulocytes Abs Auto 0.11 10^3/uL (0.00-0.03); Immature Granulocytes Pct Auto 0.8 % (0.0-0.5); Lymphocytes Absolute Auto 2.3 10^3/uL (1.2-3.8); Lymphocytes Percent Auto 17.4 % (20.5-60.0); Mean Corpuscular HGB Conc 31.3 g/dL (29.9-35.2); Mean Corpuscular Hemoglobin 25.3 pg (26.7-34.0); Mean Platelet Volume 9.1 fL (9.5-13.5); Monocytes Absolute Auto 0.8 10^3/uL (0.3-0.8); Monocytes Percent Auto 5.7 % (1.7-12.0); Neutrophils Absolute Auto 9.9 10^3/uL (1.4-6.5); Platelet Count 419 10^3/uL (150-450); Red Blood Count 3.99 10^6/uL (4.20-5.40); Red Cell Distribution Width 13.9 % (11.0-15.0); White Blood Count 13.2 10^3/uL (4.0-11.0)
[2023-07-14 05:47] LABS: Alanine Aminotransferase 14 U/L (14-59); Albumin Globulin Ratio 0.8; Albumin Level 2.5 g/dL (3.4-5.0); Alkaline Phosphatase 82 U/L (46-116); Anion Gap 17.3; Aspartate Amino Transferase <5 U/L (15-37); BUN Creatinine Ratio 14.7; Bilirubin Total 0.2 mg/dL (0.2-1.0); Calcium 7.3 mg/dL (8.5-10.1); Chloride 103 mmol/L (98-107); Estimated GFR (African America >60 (>=60); Estimated GFR (Non-African Ame >60 (>=60); Globulin 3.2 g/dL; Glucose 252 mg/dL (74-106); Potassium 3.3 mmol/L (3.5-5.1); Sodium 133 mmol/L (136-145); Total Protein 5.7 g/dL (6.4-8.2)
[2023-07-14 07:31] LABS: Glucometer 259 mg/dL (74-106)
[2023-07-14] MEDS: POTASSIUM CHLORIDE 10 MEQ ER TABLET 40 MEQ PO (08:08)
--- NOTE | 2023-07-14 08:54 | CM.NOTE ---
Brought a list of inpatient drug rehab programs to discuss options with pt, after reviewing list pt states maybe it would just be better to return to [facility] in [place]. Attempted to call Toya, no answer. Case Management will call back at a later time.
--- OUTSIDE RECORDS SUMMARY | 2023-07-14 09:01 | XMS_ITS | CCD ---
Author Name Unknown Address [address] [place] [address] Organization [facility] Care Team Providers Care Tetryl Screen Operator Name Role Phone PHYSICIAN, DEFAULT Unavailable Unavailable [...] Care Unavailable FANADIA, H Admitting Unavailable TRI, SILVA H Attending Unavailable KELSIE, DR ARCADIO Ballesteros [...] to adverse reactions to drug 3 Anaphylaxis [facility] (6 sources) Shellfish; Translations: [SHELLFISH DERIVED] Propensity to adverse reactions to drug 0 [facility] (3 sources) Penicillin; Translations: [penicillin] Drug Allergy [facility] (4 sources) Shellfish; Translations: [shellfish] Drug allergy (disorder) 4 [facility] (1 source) Shellfish-Derive d Products Propensity to adverse reactions to drug 1 [place], [place] (3 sources) Shellfish; Translations: [SHELLFISH CONTAINING PRODUCTS] Propensity to adverse reactions to drug 7 Anaphylaxis [facility] Medications Current Medications Medication Drug Class(es) Dates Sig (Normalized) Sig (Original) [id number] 200 actuat albuterol 0.09 mg/actuat metered dose [...] 0 Active take 1 capsule by mo [facility] once daily in the morning amphetamine-dextroamphetamine XR [...] 1215 DO NOT CRUSH OR CHEW. pantoprazole (OR OTONIX) 20 mg EC tablet Take 30 [...] 04-03-2020 03-01-2021 Chronic Other aftercare (1 source) half-way (current) use of insulin; Translations: [LONGTERM CURRENT USE OF INSULIN] Onset: 09-17-2022 Episodic Other aftercare (1 source) Other halfway (current) drug therapy; Translations: [OTH DEPORTATION OFFICER CURRENT DRUG THERAPY] Onset: 09-17-2022 Episodic Other [...] gap [Moles/Vol] 7 mmol/L Normal 5-15 [facility] Comment on above: Performed By: #### 6 873-4, 07993-8, 14550-2, CMP, 84866-1, HA1C, CBCA #### [facility] ([id number]) [address] [place] [address] Calcium [Mass/Vol] 7.8 mg/dL Low 8.5-10.5 [facility] Comment on above: Performed By: #### 6 873-4, 73255-7, 32999-8, CMP, 82773-4, HA1C, CBCA #### [facility] ([id number]) [address], [address] [place] [address] Chloride [Moles/Vol] 98 mmol/L Normal 98-109 [facility] Comment on above: Performed By: #### 6 873-4, 42620-5, 17988-7, CMP, 26046-0, HA1C, CBCA #### [facility] ([id number]) [address], [address] [place] [address] CO2 [Moles/Vol] 27 mmol/L Normal 22-32 [facility] Comment on above: Performed By: #### 6 873-4, 22178-6, 70417-4, CMP, 25293-9, HA1C, CBCA #### [facility] ([id number]) [address], [address] [place] [address] Creatinine [Mass/Vol] 0.50 mg/dL Normal 0.40-1.00 [facility] Comment on above: Result Comment: METH OD TRACEABLE TO IDMS STANDARD Performed By: #### 6 873-4, 37931-3, 61715-8, CMP, 95308-1, HA1C, CBCA #### [facility] ([id number]) [address], [address] [place] [address] eGFR (CKD-EPI) NON-RACE DEPENDENT >90 Normal >59 [facility] Comment on above: Result Comment: Reported eGFR is based on the CKD-EPI 2020 equation that does not use a race coefficient. Performed By: #### 6 873-4, 31750-1, 35649-5, CMP, 39307-2, HA1C, CBCA #### [facility] ([id number]) [address], [address] [place] [address] Glucose [Mass/Vol] 290 mg/dL High 65-99 [facility] Comment on above: Performed By: #### 6 873-4, 34785-4, 10560-0, CMP, 78980-7, HA1C, CBCA #### [facility] ([id number]) [address], [address] [place] [address] Potassium [Moles/Vol] 3.7 mmol/L Normal 3.5-5.0 [facility] Comment on above: Performed By: #### 6 873-4, 35250-6, 17222-5, CMP, 89597-2, HA1C, CBCA #### [facility] ([id number]) [address], [address] [place] [address] Sodium [Moles/Vol] 132 mmol/L Low 134-146 [facility] Comment on above: Performed By: #### 6 873-4, 27058-5, , CMP, 81416-1, HA1C, CBCA #### [facility] ([id number]) [address], [address] [place] [address] Urea nitrogen [Mass/Vol] 2 mg/dL Low 5-23 [facility] Comment on above: Performed By: #### 6 873-4, 35257-3, , CMP, 61354-7, HA1C, CBCA #### [facility] ([id number]) [address], [address] [place] [address] Beta hydroxybutyrate [Moles/ Vol]on 07-04-2023 BetaHydroxybutyrate 0.38 mmol/L High 0.02-0.27 [facility] Comment on above: Performed By: #### 6 873-4, 95370-3, 82231-8, CMP, 06701-3, HA1C, CBCA #### [facility] ([id number]) [address], [address] [place] [address] BetaHydroxybutyrate <0.10 Normal 0.02-0.27 [facility] Comment on above: Performed By: #### 6 873-4, 16505-6, 50997-6, CMP, 17945-3, HA1C, CBCA #### [facility] ([id number]) [address], [address] [place] [address] BetaHydroxybutyrateon 2023 Beta hydroxybutyrate [Moles/Vol] mmol/L 0.02 - 0.27 mmol/L [facility] CBC AND AUTO DIFFon 07-04-19 ABSOLUTE BASOPHIL 0.0 X10E9/L Normal 0.0-0.2 [facility] Comment on above: Performed By: #### 6 873-4, 51728-6, 30877-3, CMP, 71067-1, HA1C, CBCA #### [facility] ([id number]) [address], [address] [place] [address] ABSOLUTE NEUTROPHIL 5.2 X10E9/L Normal 1.5-6.6 [facility] Comment on above: Performed By: #### 6 873-4, 44949-6, 87177-1, CMP, 43890-6, HA1C, CBCA #### [facility] ([id number]) [address] [address] Basophils/100 WBC (Bld) 0.7 % Normal P [facility] Comment on above: Performed By: #### 6 873-4, 73393-8, 47471-5, CMP, 15226-7, HA1C, CBCA #### [facility] ([id number]) [address], [address] [place] [address] Eosinophils (Bld) [#/Vol] 0.0 10*3/uL Normal 0.0-0.4 [facility] Comment on above: Performed By: #### 6 873-4, 80385-0, 98361-1, CMP, 96677-0, HA1C, CBCA #### [facility] ([id number]) [address], [address] [place] [address] Eosinophils/100 WBC (Bld) 0.6 % Normal [facility] Comment on above: Performed By: #### 6 873-4, 71545-7, 18427-1, CMP, 21247-5, HA1C, CBCA #### [facility] ([id number]) [address], [address] [place] [address] Erythrocyte distribution width (RBC) [Ratio] 15.3 % High 11.5-15.0 [facility] Comment on above: Performed By: #### 6 873-4, 62277-5, 35426-1, CMP, 82815-2, HA1C, CBCA #### [facility] ([id number]) [address] [place] [address] Hematocrit (Bld) [Volume fraction] 36.1 % Normal 35-47 [facility] Comment on above: Performed By: #### 6 873-4, 60039-4, 17533-5, CMP, 19385-6, HA1C, CBCA #### [facility] ([id number]) [address], [facility] [address] [place] [address] Hemoglobin (Bld) [Mass/Vol] 11.9 g/dL Normal 11.7-15.5 [facility] Comment on above: Performed By: #### 6 873-4, 83316-4, 72778-3, CMP, 60962-3, HA1C, CBCA #### [facility] ([id number]) [address], [address] [place] [address] Lymphocytes (Bld) [#/Vol] 1.5 10*3/uL Normal 1.0-3.5 [facility] Comment on above: Performed By: #### 6 873-4, 89348-3, 32454-9, CMP, 02829-1, HA1C, CBCA #### [facility] ([id number]) [address], [address] [place] [address] Lymphocytes/100 WBC (Bld) 21.1 % Normal [facility] Comment on above: Performed By: #### 6 873-4, 16911-1, 85990-6, CMP, 40527-8, HA1C, CBCA #### [facility] ([id number]) [address], [address] [place] [address] MCH (RBC) [Entitic mass] 25.2 pg Low 27-34 [facility] Comment on above: Performed By: #### 6 873-4, 21296-6, 05122-3, CMP, 08500-9, HA1C, CBCA #### [facility] ([id number]) [address], [facility] [address] [place] [address] MCHC (RBC) [Mass/Vol] 33.0 g/dL Normal 32-36 [facility] Comment on above: Performed By: #### 6 873-4, 63491-8, 38703-9, CMP, 42401-7, HA1C, CBCA #### [facility] ([id number]) [address], [address] [place] [address] MCV (RBC) [Entitic vol] 76 fL Low 80-100 [facility] Comment on above: Performed By: #### 6 873-4, 79841-1, 54741-9, CMP, 82750-8, HA1C, CBCA #### [facility] ([id number]) [address], [address] [place] [address] Monocytes (Bld) [#/Vol] 0.5 10*3/uL Normal 0-0.9 [facility] Comment on above: Performed By: #### 6 873-4, 31878-6, 10276-2, CMP, 93043-9, HA1C, CBCA #### [facility] ([id number]) [address], [address] [place] [address] Monocytes/100 WBC (Bld) 6.7 % Normal [facility] Comment on above: Performed By: #### 6 873-4, 35224-5, 10806-8, CMP, 26459-0, HA1C, CBCA #### [facility] ([id number]) [address], [address] [place] [address] Neutrophils/100 WBC (Bld) 70.9 % Normal [facility] Comment on above: Performed By: #### 6 873-4, 32227-6, 72717-3, CMP, 08468-6, HA1C, CBCA #### [facility] ([id number]) [address], [facility] [address] [place] [address] Platelet mean volume (Bld) [Entitic vol] 7.8 fL Normal 7-12 [facility] Comment on above: Performed By: #### 6 873-4, 52512-0, 64456-7, CMP, 41756-8, HA1C, CBCA #### [facility] ([id number]) [address], [address] [place] [address] Platelets (Bld) [#/Vol] 221 10*3/uL Normal 150-450 [facility] Comment on above: Performed By: #### 6 873-4, 46094-1, 88751-2, CMP, 11278-6, HA1C, CBCA #### [facility] ([id number]) [address], [address] [place] [address] RBC COUNT 4.72 X10E12/L Normal 3.80-5.20 [facility] Comment on above: Performed By: #### 6 873-4, 76958-8, 24952-5, CMP, 51951-3, HA1C, CBCA #### [facility] ([id number]) [address], [address] [place] [address] WBC (Bld) [#/Vol] 7.3 10*3/uL Normal 4.0-11.0 [facility] Comment on above: Performed By: #### 6 873-4, 22634-6, 90251-4, CMP, 03173-4, HA1C, CBCA #### [facility] ([id number]) [address], [address] [place] [address] ABSOLUTE BASOPHIL 0.0 X10E9/L Normal 0.0-0.2 [facility] Comment on above: Performed By: #### 6 873-4, 11645-9, 84878-0, CMP, 68066-8, HA1C, CBCA #### [facility] ([id number]) [address], [address] [place] [address] ABSOLUTE NEUTROPHIL 5.2 X10E9/L Normal 1.5-6.6 [facility] Comment on above: Performed By: #### 6 873-4, 14267-4, 27615-5, CMP, 50342-9, HA1C, CBCA #### [facility] ([id number]) [address], [address] [place] [address] Basophils/100 WBC (Bld) 0.3 % Normal [facility] Comment on above: Performed By: #### 6 873-4, 00879-0, 47685-0, CMP, 36063-2, HA1C, CBCA #### [facility] ([id number]) [address], [address] [place] [address] Eosinophils (Bld) [#/Vol] 0.0 10*3/uL Normal 0.0-0.4 [facility] Comment on above: Performed By: #### 6 873-4, 93655-9, 30431-2, CMP, 27342-9, HA1C, CBCA #### [facility] ([id number]) [address], [address] [place] [address] Eosinophils/100 WBC (Bld) 0.2 % Normal [facility] Comment on above: Performed By: #### 6 873-4, 65779-3, 66455-1, CMP, 26426-7, HA1C, CBCA #### [facility] ([id number]) [address] [address] Erythrocyte distribution width (RBC) [Ratio] 15.4 % High 11.5-15.0 [facility] Comment on above: Performed By: #### 6 873-4, 05469-6, 12670-6, CMP, 03378-1, HA1C, CBCA #### [facility] ([id number]) [address] [address] Hematocrit (Bld) [Volume fraction] 30.9 % Low 35-47 [facility] Comment on above: Performed By: #### 6 873-4, 73861-2, 57790-1, CMP, 55417-6, HA1C, CBCA #### [facility] ([id number]) [address] [address] Hemoglobin (Bld) [Mass/Vol] 10.4 g/dL Low 11.7-15.5 [facility] Comment on above: Performed By: #### 6 873-4, 63152-2, 03020-1, CMP, 06063-7, HA1C, CBCA #### [facility] ([id number]) [address] [address] Lymphocytes (Bld) [#/Vol] 1.7 10*3/uL Normal 1.0-3.5 [facility] Comment on above: Performed By: #### 6 873-4, 27421-5, 73474-5, CMP, 05262-2, HA1C, CBCA #### [facility] ([id number]) [address] [address] Lymphocytes/100 WBC (Bld) 22.6 % Normal [facility] Comment on above: Performed By: #### 6 873-4, 55737-6, 68048-3, CMP, 03245-1, HA1C, CBCA #### [facility] ([id number]) [address], [address] [place] [address] MCH (RBC) [Entitic mass] 25.8 pg Low 27-34 [facility] Comment on above: Performed By: #### 6 873-4, 73669-5, 44053-1, CMP, 29253-7, HA1C, CBCA #### [facility] ([id number]) [address], [facility] [address] [place] [address] MCHC (RBC) [Mass/Vol] 33.7 g/dL Normal 32-36 [facility] Comment on above: Performed By: #### 6 873-4, 12405-8, 46077-9, CMP, 23056-0, HA1C, CBCA #### [facility] ([id number]) [address], [address] [place] [address] MCV (RBC) [Entitic vol] 77 fL Low 80-100 [facility] Comment on above: Performed By: #### 6 873-4, 99140-1, 23542-8, CMP, 97860-6, HA1C, CBCA #### [facility] ([id number]) [address], [address] [place] [address] Monocytes (Bld) [#/Vol] 0.6 10*3/uL Normal 0-0.9 [facility] Comment on above: Performed By: #### 6 873-4, 91083-0, 84552-1, CMP, 66947-7, HA1C, CBCA #### [facility] ([id number]) [address], [address] [place] [address] Monocytes/100 WBC (Bld) 7.9 % Normal [facility] Comment on above: Performed By: #### 6 873-4, 41902-1, 48646-6, CMP, 23960-4, HA1C, CBCA #### [facility] ([id number]) [address], [address] [place] [address] Neutrophils/100 WBC (Bld) 69.0 % Normal [facility] Comment on above: Performed By: #### 6 873-4, 56613-7, 00540-5, CMP, 90792-5, HA1C, CBCA #### [facility] ([id number]) [address], [facility] [address] [place] [address] Platelet mean volume (Bld) [Entitic vol] 7.6 fL Normal 7-12 [facility] Comment on above: Performed By: #### 6 873-4, 80811-4, 94952-3, CMP, 47186-5, HA1C, CBCA #### [facility] ([id number]) [address], [address] [place] [address] Platelets (Bld) [#/Vol] 221 10*3/uL Normal 150-450 [facility] Comment on above: Performed By: #### 6 873-4, 22901-4, 82918-6, CMP, 91864-1, HA1C, CBCA #### [facility] ([id number]) [address], [address] [place] [address] RBC COUNT 4.03 X10E12/L Normal 3.80-5.20 [facility] Comment on above: Performed By: #### 6 873-4, 03835-6, 84493-8, CMP, 85980-8, HA1C, CBCA #### [facility] ([id number]) [address], [address] [place] [address] WBC (Bld) [#/Vol] 7.6 10*3/uL Normal 4.0-11.0 [facility] Comment on above: Performed By: #### 6 873-4, 45405-9, 93403-5, CMP, 46044-5, HA1C, CBCA #### [facility] ([id number]) [address] [place] [address] CBC auto differentialon Basophils (Bld) [#/Vol] 0.0 10*3/uL [facility] Basophils/100 WBC (Bld) 0.3 % P [facility] Eosinophils (Bld) [#/Vol] 0.0 10*3/uL [...] Interpretation and review of laboratory results Abnormal [facility] Lymphocytes (Bld) [#/Vol] 1.7 10*3/uL [facility] Lymphocytes/100 WBC (Bld) 22.6 % [facility] MCH (RBC) [Entitic mass] 25.8 pg Low 27 - 34 pg [facility] MCHC (RBC) [Mass/Vol] 33.7 g/dL 32 - 36 g/dL [facility] MCV (RBC) [Entitic vol] 77 fL Low 80 - 100 fL [facility] Monocytes (Bld) [#/Vol] 0.6 10*3/uL [facility] Monocytes/100 WBC (Bld) 7.9 % [facility] Neutrophils (Bld) [#/Vol] 5.2 10*3/uL [facility] Neutrophils/100 WBC (Bld) 69.0 % [facility] Platelet mean volume (Bld) [Entitic vol] 7.6 fL 7 - 12 fL [facility] Platelets (Bld) [#/Vol] 221 10*3/uL [facility] RBC (Bld) [#/Vol] 4.03 10*6/uL [facility] WBC corrected for nucl RBC Auto (Bld) [#/Vol] 7.6 [facility] COMPREHENSIVE METABOLIC PANE [place] 07-04-2023 Albumin [Mass/Vol] 3.0 g/dL Low 3.2-5.3 [facility] Comment on above: Performed By: #### 6 873-4, 53970-6, 27293-4, CMP, 60613-9, HA1C, CBCA #### [facility] ([id number]) [address], [address] [place] [address] ALP [Catalytic activity/Vol] 68 U/L Normal 39-130 [facility] Comment on above: Performed By: #### 6 873-4, 14258-1, 35368-4, CMP, 74648-8, HA1C, CBCA #### [facility] ([id number]) [address], [address] [place] [address] ALT [Catalytic activity/Vol] 14 U/L Normal 0-31 [facility] Comment on above: Performed By: #### 6 873-4, 30823-7, 11456-0, CMP, 65993-2, HA1C, CBCA #### [facility] ([id number]) [address], [address] [place] [address] Anion gap [Moles/Vol] 5 mmol/L Normal 5-15 [facility] Comment on above: Performed By: #### 6 873-4, 52378-9, 83468-7, CMP, 51911-2, HA1C, CBCA #### [facility] ([id number]) [address], [address] [place] [address] AST [Catalytic activity/Vol] 17 U/L Normal 0-41 [facility] Comment on above: Performed By: #### 6 873-4, 46352-3, 33210-1, CMP, 44914-7, HA1C, CBCA #### [facility] ([id number]) [address], [address] [place] [address] Bilirubin [Mass/Vol] 0.3 mg/dL Normal 0.3-1.2 [facility] Comment on above: Performed By: #### 6 873-4, 50047-3, 84727-6, CMP, 93853-1, HA1C, CBCA #### [facility] ([id number]) [address], [address] [place] [address] Calcium [Mass/Vol] 7.4 mg/dL Low 8.5-10.5 [facility] Comment on above: Performed By: #### 6 873-4, 85482-1, 33251-4, CMP, 03228-0, HA1C, CBCA #### [facility] ([id number]) [address], [address] [place] [address] Chloride [Moles/Vol] 113 mmol/L High 98-109 [facility] Comment on above: Performed By: #### 6 873-4, 76091-8, 22876-3, CMP, 53326-7, HA1C, CBCA #### [facility] ([id number]) [address], [address] [place] [address] CO2 [Moles/Vol] 23 mmol/L Normal 22-32 [facility] Comment on above: Performed By: #### 6 873-4, 01230-5, 60647-2, CMP, 77857-0, HA1C, CBCA #### [facility] ([id number]) [address], [address] [place] [address] Creatinine [Mass/Vol] 0.36 mg/dL Low 0.40-1.00 [facility] Comment on above: Result Comment: METH OD TRACEABLE TO IDMS STANDARD Performed By: #### 6 873-4, 10326-9, 73013-8, CMP, 84604-7, HA1C, CBCA #### [facility] ([id number]) [address], [address] [place] [address] eGFR (CKD-EPI) NON-RACE DEPENDENT >90 Normal >59 [facility] Comment on above: Result Comment: Reported eGFR is based on the CKD-EPI 1 equation that does not use a race coefficient. Performed By: #### 6 873-4, 85058-5, 86067-7, CMP, 10783-0, HA1C, CBCA #### [facility] ([id number]) [address], [address] [place] [address] Glucose [Mass/Vol] 89 mg/dL Normal 65-99 [facility] Comment on above: Performed By: #### 6 873-4, 39339-6, 75383-2, CMP, 27927-3, HA1C, CBCA #### [facility] ([id number]) [address], [address] [place] [address] Potassium [Moles/Vol] 3.4 mmol/L Low 3.5-5.0 [facility] Comment on above: Performed By: #### 6 873-4, 97598-8, 60040-9, CMP, 76602-5, HA1C, CBCA #### [facility] ([id number]) [address], [address] [place] [address] Protein [Mass/Vol] 5.0 g/dL Low 6.0-8.0 [facility] Comment on above: Performed By: #### 6 873-4, 21691-3, 52970-3, CMP, 87459-9, HA1C, CBCA #### [facility] ([id number]) [address], [address] [place] [address] Sodium [Moles/Vol] 141 mmol/L Normal 134-146 [facility] Comment on above: Performed By: #### 6 873-4, 11796-6, 87584-2, CMP, 09374-9, HA1C, CBCA #### [facility] ([id number]) [address] [place] [address] Urea nitrogen [Mass/Vol] 2 mg/dL Low 5-23 [facility] Comment on above: Performed By: #### 6 873-4, 22596-7, 89814-9, CMP, 77702-9, HA1C, CBCA #### [facility] ([id number]) [address] [place] [address] Calcium.ionized (Bld) [Mass/ Vol]on 07-04-2023 IONIZED CALCIUM 4.5 mg/dL Normal 4.5-5.3 [facility] Comment on above: Performed By: #### 6 873-4, 76322-9, 53981-4, CMP, 13799-7, HA1C, CBCA #### [facility] ([id number]) [address], [address] [place] [address] [facility] Comprehensive metabolic pane galileo 07-04-2023 Albumin [Mass/Vol] 3.0 g/dL Low 3.2 - 5.3 g/dL [facility] ALP [Catalytic activity/Vol] 68 U/L 39 - 130 U/L [facility] ALT No additional P-5'-P [Catalytic activity/Vol] 14 U/L 0 - 31 U/L [facility] Anion gap [Moles/Vol] 5 mmol/L 5 - 15 mmol/L [facility] AST [Catalytic activity/Vol] 17 U/L 0 - 41 U/L [facility] Bilirubin [Mass/Vol] 0.3 mg/dL 0.3 - 1 .2 mg/dL [facility] Calcium [Mass/Vol] 7.4 mg/dL Low 8.5 - 10. 5 mg/dL [facility] Chloride [Moles/Vol] 113 mmol/L High 98 - 10 9 mmol/L [facility] CO2 [Moles/Vol] 23 mmol/L 22 - 32 mmol/L [facility] Creatinine [Mass/Vol] 0.36 mg/dL Low 0.40 - 1.00 mg/dL [facility] Comment on above: METHOD TRACEABLE TO IDWV STANDARD eGFR (CKD-EPI)non-race dependent - PINF [facility] Comment on above: Reported eGFR is based on the CKD-EPI 2020 equation that does not use a race coefficient. Glucose [Mass/Vol] 89 mg/dL 65 - 99 mg/dL [facility] Potassium [Moles/Vol] 3.4 mmol/L Low 3.5 - 5.0 mmol/L [facility] Protein [Mass/Vol] 5.0 g/dL Low 6.0 - 8.0 g/dL [facility] Sodium [Moles/Vol] 141 mmol/L 134 - 146 mmol/L [facility] Urea nitrogen [Mass/Vol] 2 mg/dL Low 5 - 23 mg/d L [facility] ELECTROLYTESon 07-04-2023 Anion gap [Moles/Vol] 4 mmol/L Low 5-15 [facility] Comment on above: Performed By: #### 6 873-4, 42134-8, 03146-9, CMP, 97078-1, HA1C, CBCA #### [facility] ([id number]) [address], [address] [place] [address] Chloride [Moles/Vol] 108 mmol/L Normal 98-109 [facility] Comment on above: Performed By: #### 6 873-4, 69544-5, 11529-9, CMP, 66090-4, HA1C, CBCA #### [facility] ([id number]) [address], [address] [place] [address] CO2 [Moles/Vol] 26 mmol/L Normal 22-32 [facility] Comment on above: Performed By: #### 6 873-4, 46019-2, 93907-3, CMP, 47677-2, HA1C, CBCA #### [facility] ([id number]) [address], [address] [place] [address] Potassium [Moles/Vol] 3.9 mmol/L Normal 3.5-5.0 [facility] Comment on above: Performed By: #### 6 873-4, 65578-4, 03908-6, CMP, 99619-2, HA1C, CBCA #### [facility] ([id number]) [address], [address] [place] [address] Sodium [Moles/Vol] 138 mmol/L Normal 134-146 [facility] Comment on above: Performed By: #### 6 873-4, 58796-3, 44599-3, CMP, 48280-3, HA1C, CBCA #### [facility] ([id number]) [address], [address] [place] [address] Anion gap [Moles/Vol] 7 mmol/L Normal 5-15 [facility] [facility] Comment on above: Performed By: #### 6 873-4, 55551-7, 64031-4, CMP, 89067-5, HA1C, CBCA #### [facility] ([id number]) [address], [address] [place] [address] Chloride [Moles/Vol] 109 mmol/L Normal 98-109 [facility] Comment on above: Performed By: #### 6 873-4, 86117-0, 16608-1, CMP, 61957-9, HA1C, CBCA #### [facility] ([id number]) [address], [address] [place] [address] CO2 [Moles/Vol] 21 mmol/L Low 22-32 [facility] Comment on above: Performed By: #### 6 873-4, 50074-2, 90011-1, CMP, 84757-4, HA1C, CBCA #### [facility] ([id number]) [address], [address] [place] [address] Potassium [Moles/Vol] 3.3 mmol/L Low 3.5-5.0 [facility] Comment on above: Performed By: #### 6 873-4, 85289-5, 43159-8, CMP, 77697-8, HA1C, CBCA #### [facility] ([id number]) [address], [address] [place] [address] Sodium [Moles/Vol] 137 mmol/L Normal 134-146 [facility] Comment on above: Performed By: #### 6 873-4, 84408-0, 24244-2, [facility], 83880-1, HA1C, CBCA #### [facility] ([id number]) [address], [address] [place] [address] ETHANOLon 07-04-2023 Ethanol [Mass/Vol] mg/dL Normal 0.00-0.08 [facility] Comment on above: Result Comment: This report is intended for use in clinical monitoring or management of patients. Performed By: #### 6 873-4, 22950-6, 83063-2, [facility], 24491-0, HA1C, CBCA #### [facility] ([id number]) [address], [address] [place] [address] Electrolyte panelon 07-04-19 Anion gap [Moles/Vol] 7 mmol/L 5 - 15 mmol/L [facility] Chloride [Moles/Vol] 109 mmol/L 98 - 10 9 mmol/L [facility] CO2 [Moles/Vol] 21 mmol/L Low 22 - 32 mmol/L [facility] Interpretation and review of laboratory results Abnormal [facility] Potassium [Moles/Vol] 3.3 mmol/L Low 3.5 - 5.0 mmol/L [facility] Sodium [Moles/Vol] 137 mmol/L 134 - 146 mmol/L [facility] Glucose Glucometer (BldC) [M ass/Vol]on 07-04-2023 Glucose [Mass/Vol] 203 mg/dL High 65-99 [facility] Glucose [Mass/Vol] 173 mg/dL High 65-99 [facility] Glucose [Mass/Vol] 140 mg/dL High 65 - 99 mg/dL [facility] Glucose [Mass/Vol] 173 mg/dL High 65 - 99 mg/dL [facility] Interpretation and review of laboratory results Abnormal [facility] Glucose [Mass/Vol] 140 mg/dL High 65-99 [facility] [place] [facility] Glucose [Mass/Vol] 156 mg/dL High 65-99 [facility] [place] [facility] Glucose [Mass/Vol] 156 mg/dL High 65 - 99 mg/dL [facility] Interpretation and review of laboratory results Abnormal [facility] Glucose [Mass/Vol] 139 mg/dL High 65 - 99 mg/dL [facility] Interpretation and review of laboratory results Abnormal [facility] Glucose [Mass/Vol] 139 mg/dL High 65-99 [facility] [place] [facility] Glucose [Mass/Vol] 134 mg/dL High 65-99 [facility] [place] [facility] Glucose [Mass/Vol] 147 mg/dL High 65-99 [facility] [place] [facility] Glucose [Mass/Vol] 134 mg/dL High 65 - 99 mg/dL [facility] Interpretation and review of laboratory results Abnormal [facility] Glucose [Mass/Vol] 86 mg/dL Normal 65-99 [facility] [place] [facility] Glucose [Mass/Vol] 147 mg/dL High 65 - 99 mg/dL [facility] Interpretation and review of laboratory results Abnormal [facility] Glucose [Mass/Vol] 106 mg/dL High 65-99 [facility] [place] [facility] Glucose [Mass/Vol] 86 mg/dL 65 - 99 mg/dL [facility] Glucose [Mass/Vol] 163 mg/dL High 65-99 [facility] [place] [facility] Glucose [Mass/Vol] 235 mg/dL High 65-99 [facility] [place] [facility] Glucose [Mass/Vol] 106 mg/dL High 65 - 99 mg/dL [facility] Interpretation and review of laboratory results Abnormal [facility] Glucose [Mass/Vol] 163 mg/dL High 65 - 99 mg/dL [facility] Interpretation and review of laboratory results Abnormal [facility] Glucose [Mass/Vol] 238 mg/dL High 65-99 [facility] Glucose [Mass/Vol] 235 mg/dL High 65 - 99 mg/dL [facility] Interpretation and review of laboratory results Abnormal [facility] Glucose [Mass/Vol] 265 mg/dL High 65-99 [facility] Ionized calciumon 07-04-2023 Calcium.ionized (Bld) [Mass/Vol] 4.5 mg/dL 4.5 - 5.3 mg/dL [facility] Ionized magnesiumon 07-04-19 Magnesium Ionized ISE (Bld) [Moles/Vol] 0.72 mmol/L 0.45 - 0.74 mmol/L [facility] Comment on above: NEW REFERENCE RANGE LIVER PANELon 07-04-2023 Albumin [Mass/Vol] 3.6 g/dL Normal 3.2-5.3 [facility] Comment on above: Performed By: #### 6 873-4, 60337-8, 41192-7, CMP, 01410-0, HA1C, CBCA #### [facility] ([id number]) [address], [address] [place] [address] ALP [Catalytic activity/Vol] 82 U/L Normal 39-130 [facility] Comment on above: Performed By: #### 6 873-4, 94211-0, 93923-1, CMP, 21936-3, HA1C, CBCA #### [facility] ([id number]) [address], [address] [place] [address] ALT [Catalytic activity/Vol] 18 U/L Normal 0-31 [facility] Comment on above: Performed By: #### 6 873-4, 47430-7, 00658-6, CMP, 69880-3, HA1C, CBCA #### [facility] ([id number]) [address], [address] [place] [address] AST [Catalytic activity/Vol] 18 U/L Normal 0-41 [facility] Comment on above: Performed By: #### 6 873-4, 76079-3, 29388-5, CMP, 10340-3, HA1C, CBCA #### [facility] ([id number]) [address], [address] [place] [address] Bilirubin [Mass/Vol] 0.5 mg/dL Normal 0.3-1.2 [facility] Comment on above: Performed By: #### 6 873-4, 42894-6, 28573-4, CMP, 36443-9, HA1C, CBCA #### [facility] ([id number]) [address] [place] [address] Bilirubin.direct [Mass/Vol] 0.0 mg/dL Normal 0.0-0.4 [facility] Comment on above: Performed By: #### 6 873-4, 84655-1, 17872-9, CMP, 37043-7, HA1C, CBCA #### [facility] ([id number]) [address] [place] [address] Protein [Mass/Vol] 6.4 g/dL Normal 6.0-8.0 [facility] Comment on above: Performed By: #### 6 873-4, 60654-7, 54780-2, CMP, 09822-8, HA1C, CBCA #### [facility] ([id number]) [address], [address] [place] [address] Laboratory - Chemistry and C hemistry - challengeon 07-04-2023 Phosphate [Mass/Vol] 2.0 mg/dL Low 2.4-4.9 [facility] Comment on above: Performed By: #### 6 873-4, 08371-6, 37583-7, CMP, 84217-9, HA1C, CBCA #### [facility] ([id number]) [address], [address] [place] [address] MAGNESIUMon 07-04-2023 Magnesium [Mass/Vol] 1.5 mg/dL Low 1.8-2.6 [facility] Comment on above: Performed By: #### 6 873-4, 93272-5, 21330-5, CMP, 56123-7, HA1C, CBCA #### [facility] ([id number]) [address], [address] [place] [address] Magnesiumon 07-04-2023 Magnesium [Mass/Vol] 1.5 mg/dL Low 1.8 - 2 .6 mg/dL [facility] Magnesium Ionized ISE (Bld) [Moles/Vol]on 07-04-2023 Magnesium [Moles/Vol] 0.72 mmol/L Normal 0.45-0.74 [facility] Comment on above: Result Comment: NEW REFERENCE RANGE Performed By: #### 6 873-4, 95955-9, 62648-9, CMP, 08784-7, HA1C, CBCA #### [facility] ([id number]) [address], [address] [place] [address] [facility] No Panel Informationon 07-04 Interpretation and review of laboratory results Abnormal [facility] Interpretation and review of laboratory results Abnormal [facility] PHOSPHORUSon 07-04-2023 Phosphate [Mass/Vol] 1.5 mg/dL Low 2.4-4.9 [facility] Comment on above: Performed By: #### 6 873-4, 05594-5, 49205-8, CMP, 22175-1, HA1C, CBCA #### [facility] ([id number]) [address], [address] [place] [address] Phosphate [Mass/Vol] mg/dL Critically low 2.4-4.9 [facility] Comment on above: Performed By: #### 6 873-4, 83351-0, 42741-4, CMP, 35493-0, HA1C, CBCA #### [facility] ([id number]) [address], [address] [place] [address] Phosphate [Mass/Vol] 1.1 mg/dL Low 2.4-4.9 [facility] Comment on above: Performed By: #### 6 873-4, 04759-9, 14658-1, CMP, 15597-6, HA1C, CBCA #### [facility] ([id number]) [address], [address] [place] [address] Phosphate [Mass/Vol]on 07-04 Interpretation and review of laboratory results Abnormal [facility] Interpretation and review of laboratory results Abnormal [facility] Phosphoruson 07-04-2023 Phosphate [Mass/Vol] mg/dL Critically low 2.4 - 4.9 mg/dL [facility] Phosphate [Mass/Vol] 1.1 mg/dL Low 2.4 - 4 .9 mg/dL [facility] VENOUS BLOOD GASon CAMI'S TEST Normal [facility] Comment on above: Performed By: #### 6 873-4, 99407-9, 09203-8, CMP, 67802-0, HA1C, CBCA #### [facility] ([id number]) [address], [address] [place] [address] Base excess Calc (Bld) [Moles/Vol] 2.0 mmol/L Normal 0.0-2.0 [facility] Comment on above: Performed By: #### 6 873-4, 52779-9, 51246-6, CMP, 07650-3, HA1C, CBCA #### [facility] ([id number]) [address], [address] [place] [address] Body temperature 98.6 [degF] Normal 37.0 [facility] Comment on above: Performed By: #### 6 873-4, 53169-0, 65511-7, CMP, 71046-8, HA1C, CBCA #### [facility] ([id number]) [address], [address] [place] [address] HCO3 (Bld) [Moles/Vol] 26.7 mmol/L High 20.0-24.0 [facility] Comment on above: Performed By: #### 6 873-4, 52195-2, 80472-1, CMP, 76383-0, HA1C, CBCA #### [facility] ([id number]) [address], [address] [place] [address] Oxygen saturation in Blood 43.0 % Low >80.0 [facility] Comment on above: Performed By: #### 6 873-4, 49618-6, 77660-6, CMP, 79268-8, HA1C, CBCA #### [facility] ([id number]) [address], [address] [place] [address] OXYGEN SOURCE RoomAir Normal [facility] Comment on above: Performed By: #### 6 873-4, 41347-5, 94032-9, CMP, 15436-3, HA1C, CBCA #### [facility] ([id number]) [address], [address] [place] [address] PCO2, VENOUS 43.5 MMHG Normal 35-50 [facility] Comment on above: Performed By: #### 6 873-4, 97475-9, 82810-7, CMP, 06660-0, HA1C, CBCA #### [facility] ([id number]) [address], [address] [place] [address] PH, VENOUS 7.397 Normal 7.320-7.420 [facility] Comment on above: Performed By: #### 6 873-4, 75358-7, 47248-3, CMP, 09462-0, HA1C, CBCA #### [facility] ([id number]) [address], [address] [place] [address] PO2, VENOUS 24 MMHG Low 30-50 [facility] Comment on above: Performed By: #### 6 873-4, 67242-4, 62594-9, CMP, 38686-6, HA1C, CBCA #### [facility] ([id number]) [address], [address] [place] [address] SAMPLE SITE N/A Normal [facility] Comment on above: Performed By: #### 6 873-4, 42625-2, 21349-7, CMP, 42186-1, HA1C, CBCA #### [facility] ([id number]) [address], [address] [place] [address] SAMPLE TYPE VENOUS Normal [facility] Comment on above: Performed By: #### 6 873-4, 15681-0, 50183-4, CMP, 92477-3, HA1C, CBCA #### [facility] ([id number]) [address], [address] [place] [address] Beta hydroxybutyrate [Moles/ Vol]on 07-03-2023 BetaHydroxybutyrate 1.23 mmol/L High 0.02-0.27 [facility] Comment on above: Performed By: #### 6 873-4, 48283-0, 87632-8, CMP, 72637-5, HA1C, CBCA #### [facility] ([id number]) [address], [address] [place] [address] BetaHydroxybutyrate 2.65 mmol/L High 0.02-0.27 [facility] Comment on above: Performed By: #### 6 873-4, 90709-1, 46841-2, CMP, 08986-4, HA1C, CBCA #### [facility] ([id number]) [address], [address] [place] [address] Interpretation and review of laboratory results Abnormal [facility] BetaHydroxybutyrate 2.84 mmol/L High 0.02-0.27 [facility] Comment on above: Performed By: #### 6 873-4, 51785-8, 99313-2, CMP, 52260-0, HA1C, CBCA #### [facility] ([id number]) [address], [address] [place] [address] BetaHydroxybutyrateon 2023 Beta hydroxybutyrate [Moles/Vol] 1.23 mmol/L High 0.02 - 0.27 mmol/L [facility] Beta hydroxybutyrate [Moles/Vol] 2.65 mmol/L High 0.02 - 0.27 mmol/L [facility] Beta hydroxybutyrate [Moles/Vol] 2.84 mmol/L High 0.02 - 0.27 mmol/L [facility] CBC AND AUTO DIFFon 07-03-19 ABSOLUTE BASOPHIL 0.1 X10E9/L Normal 0.0-0.2 [facility] Comment on above: Performed By: #### 6 873-4, 98581-2, 65573-8, CMP, 92383-2, HA1C, CBCA #### [facility] ([id number]) [address], [address] [place] [address] ABSOLUTE NEUTROPHIL 11.0 X10E9/L High 1.5-6.6 [facility] Comment on above: Performed By: #### 6 873-4, 45078-1, 67038-9, CMP, 78684-9, HA1C, CBCA #### [facility] ([id number]) [address], [address] [place] [address] Basophils/100 WBC (Bld) 0.6 % Normal [facility] Comment on above: Performed By: #### 6 873-4, 58062-9, 76808-9, CMP, 07084-7, HA1C, CBCA #### [facility] ([id number]) [address] [place] [address] Eosinophils (Bld) [#/Vol] 0.0 10*3/uL Normal 0.0-0.4 [facility] Comment on above: Performed By: #### 6 873-4, 40357-3, 24165-3, CMP, 05269-5, HA1C, CBCA #### [facility] ([id number]) [address], [address] [place] [address] Eosinophils/100 WBC (Bld) 0.0 % Normal [facility] Comment on above: Performed By: #### 6 873-4, 96695-1, 08599-8, CMP, 89546-0, HA1C, CBCA #### [facility] ([id number]) [address] [address] Erythrocyte distribution width (RBC) [Ratio] 14.8 % Normal 11.5-15.0 [facility] Comment on above: Performed By: #### 6 873-4, 34213-9, 46117-3, CMP, 25767-1, HA1C, CBCA #### [facility] ([id number]) [address] [place] [address] Hematocrit (Bld) [Volume fraction] 33.7 % Low 35-47 [facility] Comment on above: Performed By: #### 6 873-4, 26767-5, 27393-4, CMP, 32816-4, HA1C, CBCA #### [facility] ([id number]) [address] [place] [address] Hemoglobin (Bld) [Mass/Vol] 10.8 g/dL Low 11.7-15.5 [facility] Comment on above: Performed By: #### 6 873-4, 81584-6, 11945-3, CMP, 58805-8, HA1C, CBCA #### [facility] ([id number]) [address] [address] Lymphocytes (Bld) [#/Vol] 0.5 10*3/uL Low 1.0-3.5 [facility] Comment on above: Performed By: #### 6 873-4, 55037-1, 97903-5, CMP, 57522-9, HA1C, CBCA #### [facility] ([id number]) [address], [address] [place] [address] Lymphocytes/100 WBC (Bld) 4.1 % Normal [facility] Comment on above: Performed By: #### 6 873-4, 60952-9, 45929-6, CMP, 54618-1, HA1C, CBCA #### [facility] ([id number]) [address], [facility] [address] [place] [address] MCH (RBC) [Entitic mass] 25.4 pg Low 27-34 [facility] Comment on above: Performed By: #### 6 873-4, 63043-7, 01137-5, CMP, 99017-6, HA1C, CBCA #### [facility] ([id number]) [address], [address] [place] [address] MCHC (RBC) [Mass/Vol] 32.2 g/dL Normal 32-36 [facility] Comment on above: Performed By: #### 6 873-4, 65910-3, 26884-8, CMP, 24129-0, HA1C, CBCA #### [facility] ([id number]) [address], [address] [place] [address] MCV (RBC) [Entitic vol] 79 fL Low 80-100 [facility] Comment on above: Performed By: #### 6 873-4, 43182-7, 62531-0, CMP, 66721-8, HA1C, CBCA #### [facility] ([id number]) [address] [place] [address] Monocytes (Bld) [#/Vol] 0.9 10*3/uL Normal 0-0.9 [facility] Comment on above: Performed By: #### 6 873-4, 55393-7, 52612-1, CMP, 12355-1, HA1C, CBCA #### [facility] ([id number]) [address], [address] [place] [address] Monocytes/100 WBC (Bld) 7.0 % Normal [facility] Comment on above: Performed By: #### 6 873-4, 83239-9, 93194-8, CMP, 29663-0, HA1C, CBCA #### [facility] ([id number]) [address], [address] [place] [address] Neutrophils/100 WBC (Bld) 88.3 % Normal [facility] Comment on above: Performed By: #### 6 873-4, 22339-2, 98003-3, CMP, 95002-1, HA1C, CBCA #### [facility] ([id number]) [address], [address] [place] [address] Platelet mean volume (Bld) [Entitic vol] 7.7 fL Normal 7-12 [facility] Comment on above: Performed By: #### 6 873-4, 18451-2, 25537-7, CMP, 10362-4, HA1C, CBCA #### [facility] ([id number]) [address], [address] [place] [address] Platelets (Bld) [#/Vol] 231 10*3/uL Normal 150-450 [facility] Comment on above: Performed By: #### 6 873-4, 59152-5, 31311-9, CMP, 81262-3, HA1C, CBCA #### [facility] ([id number]) [address] [place] [address] RBC COUNT 4.26 X10E12/L Normal 3.80-5.20 [facility] Comment on above: Performed By: #### 6 873-4, 41563-3, 45009-9, CMP, 21564-4, HA1C, CBCA #### [facility] ([id number]) [address], [address] [place] [address] WBC (Bld) [#/Vol] 12.4 10*3/uL High 4.0-11.0 [facility] Comment on above: Performed By: #### 6 873-4, 13687-2, 16997-8, CMP, 06676-9, HA1C, CBCA #### [facility] ([id number]) [address] [place] [address] CBC auto differentialon Basophils (Bld) [#/Vol] 0.1 10*3/uL [facility] Basophils/100 WBC (Bld) 0.6 % P [facility] Eosinophils (Bld) [#/Vol] 0.0 10*3/uL [facility] Eosinophils/100 WBC (Bld) 0.0 % [facility] Erythrocyte distribution width (RBC) [Ratio] 14.8 % 11.5 - 15.0 % [facility] Hematocrit (Bld) [Volume fraction] 33.7 % Low 35 - 47 % [facility] Hemoglobin (Bld) [Mass/Vol] 10.8 g/dL Low 11.7 - 15.5 g/dL [facility] Interpretation and review of laboratory results Abnormal [facility] Lymphocytes (Bld) [#/Vol] 0.5 10*3/uL Low [facility] Lymphocytes/100 WBC (Bld) 4.1 % [facility] MCH (RBC) [Entitic mass] 25.4 pg Low 27 - 34 pg [facility] MCHC (RBC) [Mass/Vol] 32.2 g/dL 32 - 36 g/dL [facility] MCV (RBC) [Entitic vol] 79 fL Low 80 - 100 fL [facility] Monocytes (Bld) [#/Vol] 0.9 10*3/uL [facility] Monocytes/100 WBC (Bld) 7.0 % [facility] Neutrophils (Bld) [#/Vol] 11.0 10*3/uL High [facility] Neutrophils/100 WBC (Bld) 88.3 % [facility] Platelet mean volume (Bld) [Entitic vol] 7.7 fL 7 - 12 fL [facility] Platelets (Bld) [#/Vol] 231 10*3/uL [facility] RBC (Bld) [#/Vol] 4.26 10*6/uL [facility] WBC corrected for nucl RBC Auto (Bld) [#/Vol] 12.4 High [facility] COMPREHENSIVE METABOLIC PANE [employer] 07-03-2023 Albumin [Mass/Vol] 3.4 g/dL Normal 3.2-5.3 [facility] Comment on above: Performed By: #### 6 873-4, 02204-6, 16263-8, CMP, 35687-3, HA1C, CBCA #### [facility] ([id number]) [address], [address] [place] [address] ALP [Catalytic activity/Vol] 80 U/L Normal 39-130 [facility] Comment on above: Performed By: #### 6 873-4, 48135-6, 84795-5, CMP, 59185-6, HA1C, CBCA #### [facility] ([id number]) [address], [address] [place] [address] ALT [Catalytic activity/Vol] 14 U/L Normal 0-31 [facility] Comment on above: Performed By: #### 6 873-4, 41639-1, 51772-1, CMP, 45415-9, HA1C, CBCA #### [facility] ([id number]) [address] [place] [address] Anion gap [Moles/Vol] 10 mmol/L Normal 5-15 [facility] Comment on above: Performed By: #### 6 873-4, 80534-7, 38277-7, CMP, 84256-6, HA1C, CBCA #### [facility] ([id number]) [address] [place] [address] AST [Catalytic activity/Vol] 23 U/L Normal 0-41 [facility] Comment on above: Performed By: #### 6 873-4, 74015-9, 65911-4, CMP, 39241-0, HA1C, CBCA #### [facility] ([id number]) [address] [place] [address] Bilirubin [Mass/Vol] 0.3 mg/dL Normal 0.3-1.2 [facility] Comment on above: Performed By: #### 6 873-4, 13423-6, 43021-7, CMP, 39238-0, HA1C, CBCA #### [facility] ([id number]) [address] [place] [address] Calcium [Mass/Vol] 6.6 mg/dL Critically low 8.5-10.5 [facility] Comment on above: Performed By: #### 6 873-4, 13490-3, 40067-2, CMP, 32105-0, HA1C, CBCA #### [facility] ([id number]) [address], [address] [place] [address] Chloride [Moles/Vol] 117 mmol/L High 98-109 [facility] Comment on above: Performed By: #### 6 873-4, 04228-5, 00890-7, CMP, 41785-5, HA1C, CBCA #### [facility] ([id number]) [address], [address] [place] [address] CO2 [Moles/Vol] 12 mmol/L Low 22-32 [facility] Comment on above: Performed By: #### 6 873-4, 87029-0, 64606-0, CMP, 46657-6, HA1C, CBCA #### [facility] ([id number]) [address], [address] [place] [address] Creatinine [Mass/Vol] 0.53 mg/dL Normal 0.40-1.00 [facility] Comment on above: Result Comment: METH OD TRACEABLE TO IDMS STANDARD Performed By: #### 6 873-4, 06454-7, 94336-7, CMP, 37501-2, HA1C, CBCA #### [facility] ([id number]) [address], [address] [place] [address] eGFR (CKD-EPI) NON-RACE DEPENDENT >90 Normal >59 [facility] Comment on above: Result Comment: Reported eGFR is based on the CKD-EPI 2020 equation that does not use a race coefficient. Performed By: #### 6 873-4, 71374-1, 30242-7, CMP, 37131-1, HA1C, CBCA #### [facility] ([id number]) [address], [address] [place] [address] Glucose [Mass/Vol] 214 mg/dL High 65-99 [facility] Comment on above: Performed By: #### 6 873-4, 93103-5, 76927-4, CMP, 51741-5, HA1C, CBCA #### [facility] ([id number]) [address], [address] [place] [address] Potassium [Moles/Vol] 3.7 mmol/L Normal 3.5-5.0 [facility] Comment on above: Performed By: #### 6 873-4, 68359-7, 03473-0, CMP, 79849-4, HA1C, CBCA #### [facility] ([id number]) [address], [address] [place] [address] Protein [Mass/Vol] 5.7 g/dL Low 6.0-8.0 [facility] Comment on above: Performed By: #### 6 873-4, 25516-3, 57808-4, CMP, 24073-9, HA1C, CBCA #### [facility] ([id number]) [address], [address] [place] [address] Sodium [Moles/Vol] 139 mmol/L Normal 134-146 [facility] Comment on above: Performed By: #### 6 873-4, 51437-0, 40989-6, CMP, 62837-2, HA1C, CBCA #### [facility] ([id number]) [address] [place] [address] Urea nitrogen [Mass/Vol] 8 mg/dL Normal 5-23 [facility] Comment on above: Performed By: #### 6 873-4, 08396-5, 76438-8, CMP, 19582-7, HA1C, CBCA #### [facility] ([id number]) [address] [place] [address] Calcium.ionized (Bld) [Mass/ Vol]on 07-03-2023 IONIZED CALCIUM 4.5 mg/dL Normal 4.5-5.3 [facility] Comment on above: Performed By: #### 6 873-4, 63779-9, 12571-5, CMP, 90795-0, HA1C, CBCA #### [facility] ([id number]) [address], [address] [place] [address] [facility] IONIZED CALCIUM 4.3 mg/dL Low 4.5-5.3 [facility] Comment on above: Performed By: #### 6 873-4, 73545-2, 86147-0, CMP, 19225-2, HA1C, CBCA #### [facility] ([id number]) [address], [address] [place] [address] Interpretation and review of laboratory results Abnormal [facility] Cardiac echo study Procedure Ordered By: Dilan Navarrete on 07-03-2023 Aortic root 2.70 cm [employer] Work Phone: [phone] AV mean gradient 5.00 mmHg [employer] Work Phone: [phone] AV peak gradient 9.99 mmHg [employer] Work Phone: [phone] AV peak deep 158.00 cm/s [employer] Work Phone: [phone] AV Velocity Ratio 0.60 [employer] Work Phone: [phone] AV VTI 27.60 cm [employer] Work Phone: [phone] E wave deceleration time 194.00 msec [employer] Work Phone: [phone] E/A ratio 1.15 [employer] Work Phone: [phone] Echo EF Estimated 61 % [employer] Work Phone: [phone] 61 % [employer] Work Phone: [phone] 35 % 28 - 44 % [employer] Work Phone: [phone] Interventricular Septum Diastolic Thickness by 2D 11 cm [employer] Work Phone: [phone] IVS 1.10 cm 0.6 - 1.1 cm [employer] Work Phone: [phone] LA size 3.20 cm [employer] Work Phone: [phone] LA volume 40.30 cm3 [employer] Work Phone: [phone] LA Volume Index 23.4 mL/m2 [employer] Work Phone: [phone] Left Ventricle Mass 181.744431770115252 g [employer] Work Phone: [phone] LV Diastolic Volume 115.00 mL [employer] Work Phone: [phone] LV ESV A2C 38.20 mL [employer] Work Phone: [phone] LV ESV A4C 39.60 mL [employer] Work Phone: [phone] LV RWT 2D 47.83 [employer] Work Phone: [phone] LV Systolic [facility] 44.40 [facility] Work Phone: [phone] LVIDd 4.60 cm 4.09 - 5.68 [facility] Work Phone: [phone] LVIDs 3.00 cm 2.42 - 3.67 cm [employer] Work Phone: [phone] LVOT peak deep 0.92 m/s [facility] Work Phone: [phone] LVOT peak VTI 16.50 cm [employer] Work Phone: [phone] MV Peak A Deep 76.60 cm/s [facility] Work Phone: [phone] MV Peak E Deep 87.80 cm/s [employer] Work Phone: [phone] MV pressure 1/[address] [facility] Work Phone: [phone] MV TDI E' (medial) 7.29 cm/s [facility] Work Phone: [phone] MV valve area p 1/2 method 3.86 cm2 [employer] Work Phone: [phone] PW 1.10 cm 0.6 - 1.1 cm [employer] Work Phone: [phone] RV diastolic dimension (basal) 36.0 mm [employer] Work Phone: [phone] RV diastolic dimension (mid-ventricle) 31.0 cm [employer] Work Phone: [phone] RV diastolic length 62.0 cm [facility] [employer] Work Phone: [phone] RV Peak Systolic Pressure 24 mmHg [facility] Work Phone: [phone] TAPSE 2.46 cm [employer] Work Phone: [phone] TDI 10.30 cm/s [facility] Work Phone: [phone] TR peak gradient 21.72 mmHg [employer] Work Phone: [phone] TR Peak Deep 2.3 m/s [employer] Work Phone: [phone] ZLVIDD -0.46 [employer] Work Phone: [phone] ZLVIDS 0.05 [employer] Work Phone: [phone] [employer] Work Phone: [phone] Cardiac echo study Procedure on 07-03-2023 Left [...] is normal. [facility] Radiology Study observation (narrative) [facility] Comprehensive metabolic pane galileo 07-03-2023 Albumin [Mass/Vol] 3.4 g/dL 3.2 - 5.3 g/dL [facility] ALP [Catalytic activity/Vol] 80 U/L 39 - 130 U/L [facility] ALT No additional P-5'-P [Catalytic activity/Vol] 14 U/L 0 - 31 U/L [facility] Anion gap [Moles/Vol] 10 mmol/L 5 - 15 mmol/L [facility] AST [Catalytic activity/Vol] 23 U/L 0 - 41 U/L [facility] Bilirubin [Mass/Vol] 0.3 mg/dL 0.3 - 1 .2 mg/dL [facility] Calcium [Mass/Vol] 6.6 mg/dL Critically low 8.5 - 1 0.5 mg/dL [facility] Chloride [Moles/Vol] 117 mmol/L High 98 - 10 9 mmol/L [facility] CO2 [Moles/Vol] 12 mmol/L Low 22 - 32 mmol/L [facility] Creatinine [Mass/Vol] 0.53 mg/dL 0.40 - 1.00 mg/dL [facility] Comment on above: METHOD TRACEABLE TO IDWV STANDARD eGFR (CKD-EPI)non-race dependent - PINF [facility] Comment on above: Reported eGFR is based on the CKD-EPI 2020 equation that does not use a race coefficient. Glucose [Mass/Vol] 214 mg/dL High 65 - 99 mg/dL [facility] Potassium [Moles/Vol] 3.7 mmol/L 3.5 - 5.0 mmol/L [facility] Protein [Mass/Vol] 5.7 g/dL Low 6.0 - 8.0 g/dL [facility] Sodium [Moles/Vol] 139 mmol/L 134 - 146 mmol/L [facility] Urea nitrogen [Mass/Vol] 8 mg/dL 5 - 23 mg/d L [facility] ELECTROLYTESon 07-03-2023 Anion gap [Moles/Vol] 7 mmol/L Normal 5-15 [facility] Comment on above: Performed By: #### 6 873-4, 45249-5, 44303-1, CMP, 12156-8, HA1C, CBCA #### [facility] ([id number]) [address], [address] [place] [address] Chloride [Moles/Vol] 108 mmol/L Normal 98-109 [facility] Comment on above: Performed By: #### 6 873-4, 91149-2, 42296-4, CMP, 87356-3, HA1C, CBCA #### [facility] ([id number]) [address], [address] [place] [address] CO2 [Moles/Vol] 20 mmol/L Low 22-32 [facility] Comment on above: Performed By: #### 6 873-4, 29497-4, 02667-0, CMP, 27786-5, HA1C, CBCA #### [facility] ([id number]) [address], [address] [place] [address] Potassium [Moles/Vol] 3.4 mmol/L Low 3.5-5.0 [facility] Comment on above: Performed By: #### 6 873-4, 44538-5, 12131-6, CMP, 77733-4, HA1C, CBCA #### [facility] ([id number]) [address], [address] [place] [address] Sodium [Moles/Vol] 135 mmol/L Normal 134-146 [facility] Comment on above: Performed By: #### 6 873-4, 92849-7, 94930-7, CMP, 93474-8, HA1C, CBCA #### [facility] ([id number]) [address], [address] [place] [address] Anion gap [Moles/Vol] 12 mmol/L Normal 5-15 [facility] Comment on above: Performed By: #### 6 873-4, 27535-6, 52344-8, CMP, 88060-1, HA1C, CBCA #### [facility] ([id number]) [address], [address] [place] [address] Chloride [Moles/Vol] 108 mmol/L Normal 98-109 [facility] Comment on above: Performed By: #### 6 873-4, 15276-1, 25101-8, CMP, 97660-5, HA1C, CBCA #### [facility] ([id number]) [address], [address] [place] [address] CO2 [Moles/Vol] 15 mmol/L Low 22-32 [facility] Comment on above: Performed By: #### 6 873-4, 21074-0, 99903-5, CMP, 46984-5, HA1C, CBCA #### [facility] ([id number]) [address], [address] [place] [address] Potassium [Moles/Vol] 3.7 mmol/L Normal 3.5-5.0 [facility] Comment on above: Performed By: #### 6 873-4, 43032-2, 45122-8, CMP, 18971-4, HA1C, CBCA #### [facility] ([id number]) [address], [address] [place] [address] Sodium [Moles/Vol] 135 mmol/L Normal 134-146 [facility] Comment on above: Performed By: #### 6 873-4, 28947-8, 63620-0, CMP, 51255-3, HA1C, CBCA #### [facility] ([id number]) [address], [address] [place] [address] Anion gap [Moles/Vol] 8 mmol/L Normal 5-15 [facility] Comment on above: Performed By: #### 6 873-4, 84246-7, 07509-7, CMP, 52190-3, HA1C, CBCA #### [facility] ([id number]) [address], [address] [place] [address] Chloride [Moles/Vol] 108 mmol/L Normal 98-109 [facility] Comment on above: Performed By: #### 6 873-4, 18589-9, 75800-2, CMP, 74896-8, HA1C, CBCA #### [facility] ([id number]) [address], [address] [place] [address] CO2 [Moles/Vol] 18 mmol/L Low 22-32 [facility] Comment on above: Performed By: #### 6 873-4, 43194-1, 44750-2, CMP, 27185-0, HA1C, CBCA #### [facility] ([id number]) [address], [address] [place] [address] Potassium [Moles/Vol] 3.7 mmol/L Normal 3.5-5.0 [facility] Comment on above: Performed By: #### 6 873-4, 60274-4, 17428-0, CMP, 98298-3, HA1C, CBCA #### [facility] ([id number]) [address], [address] [place] [address] Sodium [Moles/Vol] 134 mmol/L Normal 134-146 [facility] Comment on above: Performed By: #### 6 873-4, 48766-2, 66029-0, CMP, 76355-2, HA1C, CBCA #### [facility] ([id number]) [address], [address] [place] [address] Anion gap [Moles/Vol] 8 mmol/L Normal 5-15 [facility] Comment on above: Performed By: #### 6 873-4, 47433-7, 91973-9, CMP, 97596-1, HA1C, CBCA #### [facility] ([id number]) [address], [address] [place] [address] Chloride [Moles/Vol] 116 mmol/L High 98-109 [facility] Comment on above: Performed By: #### 6 873-4, 34861-5, 85081-8, CMP, 26572-0, HA1C, CBCA #### [facility] ([id number]) [address], [address] [place] [address] CO2 [Moles/Vol] 15 mmol/L Low 22-32 [facility] Comment on above: Performed By: #### 6 873-4, 37966-0, 67821-3, CMP, 35332-6, HA1C, CBCA #### [facility] ([id number]) [address], [address] [place] [address] Potassium [Moles/Vol] 3.0 mmol/L Low 3.5-5.0 [facility] Comment on above: Performed By: #### 6 873-4, 67168-3, 74179-6, CMP, 54834-2, HA1C, CBCA #### [facility] ([id number]) [address], [address] [place] [address] Sodium [Moles/Vol] 139 mmol/L Normal 134-146 [facility] Comment on above: Performed By: #### 6 873-4, 39884-1, 65313-4, CMP, 80957-6, HA1C, CBCA #### [facility] ([id number]) [address], [address] [place] [address] Anion gap [Moles/Vol] 8 mmol/L Normal 5-15 [facility] Comment on above: Performed By: #### 6 873-4, 47831-2, 22280-5, CMP, 42514-9, HA1C, CBCA #### [facility] ([id number]) [address], [address] [place] [address] Chloride [Moles/Vol] 121 mmol/L High 98-109 [facility] Comment on above: Performed By: #### 6 873-4, 61589-1, 32619-3, CMP, 31452-2, HA1C, CBCA #### [facility] ([id number]) [address], [address] [place] [address] CO2 [Moles/Vol] 13 mmol/L Low 22-32 [facility] Comment on above: Performed By: #### 6 873-4, 64415-3, 39187-4, CMP, 74011-3, HA1C, CBCA #### [facility] ([id number]) [address], [address] [place] [address] Potassium [Moles/Vol] 3.2 mmol/L Low 3.5-5.0 [facility] Comment on above: Performed By: #### 6 873-4, 85590-3, 89003-6, CMP, 37980-8, HA1C, CBCA #### [facility] ([id number]) [address], [address] [place] [address] Sodium [Moles/Vol] 142 mmol/L Normal 134-146 [facility] Comment on above: Performed By: #### 6 873-4, 15847-4, 68837-3, CMP, 62913-0, HA1C, CBCA #### [facility] ([id number]) [address], [address] [place] [address] Electrolyte panelon 07-03-19 Anion gap [Moles/Vol] 7 mmol/L 5 - 15 mmol/L [facility] Chloride [Moles/Vol] 108 mmol/L 98 - 10 9 mmol/L [facility] CO2 [Moles/Vol] 20 mmol/L Low 22 - 32 mmol/L [facility] Potassium [Moles/Vol] 3.4 mmol/L Low 3.5 - 5.0 mmol/L [facility] Sodium [Moles/Vol] 135 mmol/L 134 - 146 mmol/L [facility] Anion gap [Moles/Vol] 12 mmol/L 5 - 15 mmol/L [facility] Chloride [Moles/Vol] 108 mmol/L 98 - 10 9 mmol/L [facility] CO2 [Moles/Vol] 15 mmol/L Low 22 - 32 mmol/L [facility] Potassium [Moles/Vol] 3.7 mmol/L 3.5 - 5.0 mmol/L [facility] Sodium [Moles/Vol] 135 mmol/L 134 - 146 mmol/L [facility] Anion gap [Moles/Vol] 8 mmol/L 5 - 15 mmol/L [facility] Chloride [Moles/Vol] 108 mmol/L 98 - 10 9 mmol/L [facility] CO2 [Moles/Vol] 18 mmol/L Low 22 - 32 mmol/L [facility] Potassium [Moles/Vol] 3.7 mmol/L 3.5 - 5.0 mmol/L [facility] Sodium [Moles/Vol] 134 mmol/L 134 - 146 mmol/L [facility] Anion gap [Moles/Vol] 8 mmol/L 5 - 15 mmol/L [facility] Chloride [Moles/Vol] 116 mmol/L High 98 - 10 9 mmol/L [facility] CO2 [Moles/Vol] 15 mmol/L Low 22 - 32 mmol/L [facility] Interpretation and review of laboratory results Abnormal [facility] Potassium [Moles/Vol] 3.0 mmol/L Low 3.5 - 5.0 mmol/L [facility] Sodium [Moles/Vol] 139 mmol/L 134 - 146 mmol/L [facility] Anion gap [Moles/Vol] 8 mmol/L 5 - 15 mmol/L [facility] Chloride [Moles/Vol] 121 mmol/L High 98 - 10 9 mmol/L [facility] CO2 [Moles/Vol] 13 mmol/L Low 22 - 32 mmol/L [facility] Interpretation and review of laboratory results Abnormal [facility] Potassium [Moles/Vol] 3.2 mmol/L Low 3.5 - 5.0 mmol/L [facility] Sodium [Moles/Vol] 142 mmol/L 134 - 146 mmol/L [facility] Glucose Glucometer (BldC) [M ass/Vol]on 07-03-2023 Glucose [Mass/Vol] 238 mg/dL High 65 - 99 mg/dL [facility] Interpretation and review of laboratory results Abnormal [facility] Glucose [Mass/Vol] 251 mg/dL High 65-99 [facility] Glucose [Mass/Vol] 265 mg/dL High 65 - 99 mg/dL [facility] Interpretation and review of laboratory results Abnormal [facility] Glucose [Mass/Vol] 243 mg/dL High 65-99 [facility] Glucose [Mass/Vol] 241 mg/dL High 65-99 [facility] Glucose [Mass/Vol] 251 mg/dL High 65 - 99 mg/dL [facility] Interpretation and review of laboratory results Abnormal [facility] Glucose [Mass/Vol] 243 mg/dL High 65 - 99 mg/dL [facility] Interpretation and review of laboratory results Abnormal [facility] Glucose [Mass/Vol] 171 mg/dL High 65-99 [facility] Glucose [Mass/Vol] 241 mg/dL High 65 - 99 mg/dL [facility] Interpretation and review of laboratory results Abnormal [facility] Glucose [Mass/Vol] 171 mg/dL High 65 - 99 mg/dL [facility] Interpretation and review of laboratory results Abnormal [facility] Glucose [Mass/Vol] 186 mg/dL High 65-99 [facility] Glucose [Mass/Vol] 186 mg/dL High 65 - 99 mg/dL [facility] Interpretation and review of laboratory results Abnormal [facility] Glucose [Mass/Vol] 130 mg/dL High 65-99 [facility] Interpretation and review of laboratory results Abnormal [facility] Glucose [Mass/Vol] 149 mg/dL High 65-99 [facility] Glucose [Mass/Vol] 200 mg/dL High 65-99 [facility] Glucose [Mass/Vol] 149 mg/dL High 65 - 99 mg/dL [facility] Interpretation and review of laboratory results Abnormal [facility] Glucose [Mass/Vol] 215 mg/dL High 65-99 [facility] Glucose [Mass/Vol] 253 mg/dL High 65-99 [facility] Interpretation and review of laboratory results Abnormal [facility] Glucose [Mass/Vol] 200 mg/dL High 65 - 99 mg/dL [facility] Interpretation and review of laboratory results Abnormal [facility] Glucose [Mass/Vol] 215 mg/dL High 65 - 99 mg/dL [facility] Interpretation and review of laboratory results Abnormal [facility] Glucose [Mass/Vol] 219 mg/dL High 65-99 [facility] Glucose [Mass/Vol] 223 mg/dL High 65-99 [facility] Glucose [Mass/Vol] 219 mg/dL High 65 - 99 mg/dL [facility] Interpretation and review of laboratory results Abnormal [facility] Glucose [Mass/Vol] 160 mg/dL High 65-99 [facility] Glucose [Mass/Vol] 223 mg/dL High 65 - 99 mg/dL [facility] Interpretation and review of laboratory results Abnormal [facility] Glucose [Mass/Vol] 154 mg/dL High 65-99 [facility] Glucose [Mass/Vol] 160 mg/dL High 65 - 99 mg/dL [facility] Interpretation and review of laboratory results Abnormal [facility] Glucose [Mass/Vol] 186 mg/dL High 65-99 [facility] Glucose [Mass/Vol] 154 mg/dL High 65 - 99 mg/dL [facility] Interpretation and review of laboratory results Abnormal [facility] Glucose [Mass/Vol] 212 mg/dL High 65-99 [facility] Glucose [Mass/Vol] 186 mg/dL High 65 - 99 mg/dL [facility] Interpretation and review of laboratory results Abnormal [facility] Glucose [Mass/Vol] 233 mg/dL High 65-99 [facility] Glucose [Mass/Vol] 212 mg/dL High 65 - 99 mg/dL [facility] Interpretation and review of laboratory results Abnormal [facility] Ionized calciumon 07-03-2023 Calcium.ionized (Bld) [Mass/Vol] 4.5 mg/dL 4.5 - 5.3 mg/dL [facility] Calcium.ionized (Bld) [Mass/Vol] 4.3 mg/dL Low 4.5 - 5.3 mg/dL [facility] MAGNESIUMon 07-03-2023 Magnesium [Mass/Vol] 1.8 mg/dL Normal 1.8-2.6 [facility] Comment on above: Performed By: #### 6 873-4, 41232-6, 56813-6, CMP, 37474-6, HA1C, CBCA #### [facility] ([id number]) [address] [place] [address] Magnesiumon 07-03-2023 Magnesium [Mass/Vol] 1.8 mg/dL 1.8 - 2 .6 mg/dL [facility] No Panel Informationon 07-03 Interpretation and review of laboratory results Abnormal [facility] Interpretation and review of laboratory results Abnormal [facility] Interpretation and review of laboratory results Abnormal [facility] Interpretation and review of laboratory results Abnormal [facility] Interpretation and review of laboratory results Abnormal [facility] Interpretation and review of laboratory results Abnormal [facility] PHOSPHORUSon 07-03-2023 Phosphate [Mass/Vol] 1.1 mg/dL Low 2.4-4.9 [facility] Comment on above: Performed By: #### 6 873-4, 05616-2, 73434-6, CMP, 46066-1, HA1C, CBCA #### [facility] ([id number]) [address] [place] [address] Phosphate [Mass/Vol] 2.2 mg/dL Low 2.4-4.9 [facility] Comment on above: Performed By: #### 6 873-4, 63525-2, 67288-7, CMP, 07721-1, HA1C, CBCA #### [facility] ([id number]) [address] [place] [address] Phosphate [Mass/Vol] 1.9 mg/dL Low 2.4-4.9 [facility] Comment on above: Performed By: #### 6 873-4, 79056-1, 60649-8, CMP, 33055-6, HA1C, CBCA #### [facility] ([id number]) [address] [place] [address] Phosphate [Mass/Vol] mg/dL Critically low 2.4-4.9 [facility] Comment on above: Performed By: #### 6 873-4, 57216-5, 66450-3, CMP, 21661-6, HA1C, CBCA #### [facility] ([id number]) [address] [place] [address] Phosphate [Mass/Vol] 2.2 mg/dL Low 2.4-4.9 [facility] Comment on above: Performed By: #### 6 873-4, 61312-3, 59265-0, CMP, 26153-7, HA1C, CBCA #### [facility] ([id number]) [address] [place] [address] Phosphate [Mass/Vol] mg/dL Critically low 2.4-4.9 [facility] Comment on above: Performed By: #### 6 873-4, 51470-5, 78257-2, CMP, 00379-6, HA1C, CBCA #### [facility] ([id number]) [address], [address] [place] [address] Phosphate [Mass/Vol]on 07-03 Interpretation and review of laboratory results Abnormal [facility] Phosphoruson 07-03-2023 Phosphate [Mass/Vol] 1.1 mg/dL Low 2.4 - 4 .9 mg/dL [facility] Phosphate [Mass/Vol] 2.2 mg/dL Low 2.4 - 4 .9 mg/dL [facility] Phosphate [Mass/Vol] 1.9 mg/dL Low 2.4 - 4 .9 mg/dL [facility] Phosphate [Mass/Vol] mg/dL Critically low 2.4 - 4.9 mg/dL [facility] Phosphate [Mass/Vol] 2.2 mg/dL Low 2.4 - 4 .9 mg/dL [facility] Phosphate [Mass/Vol] mg/dL Critically low 2.4 - 4.9 mg/dL [facility] TROPONIN Ion 07-03-2023 Troponin I.cardiac [Mass/Vol] 0.69 ng/mL Critically high 0.00-0.04 [facility] Comment on above: Result Comment: Concentrations greater than or equal to 0.05 ng/ml are considered elevated. Elevations of Troponin may be due to causes other than myocardial ischemia. Recommend serial Troponin testing be performed. Performed By: #### 6 873-4, 74885-8, 18096-5, CMP, 17659-6, HA1C, CBCA #### [facility] ([id number]) [address], [address] [place] [address] Troponin I.cardiac [Mass/Vol] 0.75 ng/mL Critically high 0.00-0.04 [facility] Comment on above: Result Comment: Concentrations greater than or equal to 0.05 ng/ml are considered elevated. Elevations of Troponin may be due to causes other than myocardial ischemia. Recommend serial Troponin testing be performed. Performed By: #### 6 873-4, 04688-1, 93802-0, CMP, 16403-3, HA1C, CBCA #### [facility] ([id number]) [facility], [address] [address] Troponin I.cardiac [Mass/Vol] 1.53 ng/mL Critically high 0.00-0.04 [facility] Comment on above: Result Comment: Concentrations greater than or equal to 0.05 ng/ml are considered elevated. Elevations of Troponin may be due to causes other than myocardial ischemia. Recommend serial Troponin testing be performed. Performed By: #### 6 873-4, 64854-0, 63591-4, CMP, 61929-4, HA1C, CBCA #### [facility] ([id number]) [address], [facility] [address] [place] [address] Troponin I.cardiac [Mass/Vol] 1.80 ng/mL Critically high 0.00-0.04 [facility] Comment on above: Result Comment: Concentrations greater than or equal to 0.05 ng/ml are considered elevated. Elevations of Troponin may be due to causes other than myocardial ischemia. Recommend serial Troponin testing be performed. Performed By: #### 6 873-4, 73912-6, 49762-7, CMP, 10584-8, HA1C, CBCA #### [facility] ([id number]) [address] [facility], [address] [place] [address] Troponin Ion 07-03-2023 Troponin I.cardiac [Mass/Vol] 0.69 ng/mL Critically high 0.00 - 0.04 ng/mL [employer] Comment on above: Concentrations greater than or equal to 0.05 ng/ml are considered elevated. Elevations of Troponin may be due to causes other than myocardial ischemia. Recommend serial Troponin testing be performed. Troponin I.cardiac [Mass/Vol] 0.75 ng/mL Critically high 0.00 - 0.04 ng/mL [employer] Comment on above: Concentrations greater than or equal to 0.05 ng/ml are considered elevated. Elevations of Troponin may be due to causes other than myocardial ischemia. Recommend serial Troponin testing be performed. Troponin I.cardiac [Mass/Vol] 1.53 ng/mL Critically high 0.00 - 0.04 ng/mL [employer] Comment on above: Concentrations greater than or equal to 0.05 ng/ml are considered elevated. Elevations of Troponin may be due to causes other than myocardial ischemia. Recommend serial Troponin testing be performed. Troponin I.cardiac [Mass/Vol] 1.80 ng/mL Critically high 0.00 - 0.04 ng/mL [employer] Comment on above: Concentrations greater than or equal to 0.05 ng/ml are considered elevated. Elevations of Troponin may be due to causes other than myocardial ischemia. Recommend serial Troponin testing be performed. Troponin I.cardiac [Mass/Vol ]on 07-03-2023 Interpretation and review of laboratory results Abnormal [facility] Interpretation and review of laboratory results Abnormal [facility] Beta hydroxybutyrate [Moles/ Vol]on 07-02-2023 BetaHydroxybutyrate 3.34 mmol/L High 0.02-0.27 [facility] Comment on above: Performed By: #### 6 873-4, ELEC, 2777-1 ####[facility] ([id number])[address] [facility], [address] [place] [address] BetaHydroxybutyrate 8.59 mmol/L High 0.02-0.27 [facility] Comment on above: Performed By: #### 6 873-4, 10061-4, 29119-4, CMP, 31128-8, HA1C, CBCA #### [facility] ([id number]) [address], [address] [place] [address] BetaHydroxybutyrateon 2023 Beta hydroxybutyrate [Moles/Vol] 3.34 mmol/L High 0.02 - 0.27 mmol/L [facility] Beta hydroxybutyrate [Moles/Vol] 8.59 mmol/L High 0.02 - 0.27 mmol/L [facility] Blood gas, venouson 07-02-19 24 Arterial patency Wrist artery --pre arterial puncture [facility] Base deficit (Bld) [Moles/Vol] 26.0 mmol/L High [facility] CO2 (BldV) [Partial pressure] 20.1 mm[Hg] Low [facility] HCO3 (Bld) [Moles/Vol] 4.5 mmol/L Low [facility] Interpretation and review of laboratory results Abnormal [facility] Oxygen (BldV) [Partial pressure] 27 mm[Hg] Low [facility] Oxygen therapy source and amount [CARE] RoomAir [facility] Oxygen/Inspired gas setting [Volume Fraction] Ventilator 21 % [facility] pH (BldV) 6.956 [pH] Low 7.320 - 7.420 [facility] SaO2% Calculated from oxygen partial pressure (BldV) [Mass fraction] 25.0 % Low 80.0 - PINF % [facility] Specimen site Narrative N/A P [facility] Specimen type Nom (Spec) VENOUS [facility] CBC AND AUTO DIFFon 07-02-19 24 ABSOLUTE BASOPHIL 0.2 X10E9/L Normal 0.0-0.2 [facility] Comment on above: Performed By: #### 6 873-4, 56477-6, 20636-3, CMP, 53030-6, HA1C, CBCA #### [facility] ([id number]) [address], [address] [place] [address] ABSOLUTE NEUTROPHIL 16.1 X10E9/L High 1.5-6.6 [facility] Comment on above: Performed By: #### 6 873-4, 50520-4, 76657-4, CMP, 42053-1, HA1C, CBCA #### [facility] ([id number]) [address] [facility], [address] [place] [address] Basophils/100 WBC (Bld) 0.9 % Normal P [facility] Comment on above: Performed By: #### 6 873-4, 32241-2, 09492-5, CMP, 66259-7, HA1C, CBCA #### [facility] ([id number]) [address], [address] [place] [address] Eosinophils (Bld) [#/Vol] 0.0 10*3/uL Normal 0.0-0.4 [facility] Comment on above: Performed By: #### 6 873-4, 71102-1, 19053-3, CMP, 33897-9, HA1C, CBCA #### [facility] ([id number]) [address], [address] [place] [address] Eosinophils/100 WBC (Bld) 0.0 % Normal [facility] Comment on above: Performed By: #### 6 873-4, 96984-2, 36019-2, CMP, 42616-0, HA1C, CBCA #### [facility] ([id number]) [address], [address] [place] [address] Erythrocyte distribution width (RBC) [Ratio] 14.8 % Normal 11.5-15.0 [facility] Comment on above: Performed By: #### 6 873-4, 73710-2, 17858-1, CMP, 82485-1, HA1C, CBCA #### [facility] ([id number]) [address] [address] [place] [address] Hematocrit (Bld) [Volume fraction] 36.5 % Normal 35-47 [facility] Comment on above: Performed By: #### 6 873-4, 15372-8, 80291-8, CMP, 01733-8, HA1C, CBCA #### [facility] ([id number]) [address], [facility] [address] [place] [address] Hemoglobin (Bld) [Mass/Vol] 11.5 g/dL Low 11.7-15.5 [facility] Comment on above: Performed By: #### 6 873-4, 30040-2, 19403-8, CMP, 72432-2, HA1C, CBCA #### [facility] ([id number]) [address], [address] [place] [address] Lymphocytes (Bld) [#/Vol] 1.8 10*3/uL Normal 1.0-3.5 [facility] Comment on above: Performed By: #### 6 873-4, 04893-2, 24098-5, CMP, 65273-0, HA1C, CBCA #### [facility] ([id number]) [address] [address] [place] [address] Lymphocytes/100 WBC (Bld) 9.3 % Normal [facility] Comment on above: Performed By: #### 6 873-4, 00046-8, 86129-9, CMP, 64033-5, HA1C, CBCA #### [facility] ([id number]) [address], [address] [place] [address] MCH (RBC) [Entitic mass] 25.4 pg Low 27-34 [facility] Comment on above: Performed By: #### 6 873-4, 98716-2, 81585-2, CMP, 11066-4, HA1C, CBCA #### [facility] ([id number]) [address], [address] [place] [address] MCHC (RBC) [Mass/Vol] 31.6 g/dL Low 32-36 [facility] Comment on above: Performed By: #### 6 873-4, 05950-6, 65591-9, CMP, 23024-5, HA1C, CBCA #### [facility] ([id number]) [address], [address] [place] [address] MCV (RBC) [Entitic vol] 81 fL Normal 80-100 P [facility] Comment on above: Performed By: #### 6 873-4, 61211-0, 15731-2, CMP, 54855-1, HA1C, CBCA #### [facility] ([id number]) [address], [address] [place] [address] Monocytes (Bld) [#/Vol] 1.1 10*3/uL High 0-0.9 [facility] Comment on above: Performed By: #### 6 873-4, 44562-9, 86554-5, CMP, 82283-3, HA1C, CBCA #### [facility] ([id number]) [address], [address] [place] [address] Monocytes/100 WBC (Bld) 5.7 % Normal [facility] Comment on above: Performed By: #### 6 873-4, 24711-9, 43217-4, CMP, 10669-6, HA1C, CBCA #### [facility] ([id number]) [address], [address] [place] [address] Neutrophils/100 WBC (Bld) 84.1 % Normal [facility] Comment on above: Performed By: #### 6 873-4, 05052-1, 88314-4, CMP, 33331-0, HA1C, CBCA #### [facility] ([id number]) [address], [facility] [address] [place] [address] Platelet mean volume (Bld) [Entitic vol] 7.8 fL Normal 7-12 [facility] Comment on above: Performed By: #### 6 873-4, 57280-9, 12958-9, CMP, 61872-8, HA1C, CBCA #### [facility] ([id number]) [address], [address] [place] [address] Platelets (Bld) [#/Vol] 261 10*3/uL Normal 150-450 [facility] Comment on above: Performed By: #### 6 873-4, 49327-0, 63581-6, CMP, 12510-1, HA1C, CBCA #### [facility] ([id number]) [address], [address] [place] [address] RBC COUNT 4.53 X10E12/L Normal 3.80-5.20 [facility] Comment on above: Performed By: #### 6 873-4, 49074-4, 93940-3, CMP, 49899-2, HA1C, CBCA #### [facility] ([id number]) [address], [address] [place] [address] WBC (Bld) [#/Vol] 19.2 10*3/uL High 4.0-11.0 [facility] Comment on above: Performed By: #### 6 873-4, 96919-0, 18052-5, CMP, 51562-2, HA1C, CBCA #### [facility] ([id number]) [address] [facility], [address] [place] [address] CBC auto differentialon Basophils (Bld) [#/Vol] 0.2 10*3/uL [facility] Basophils/100 WBC (Bld) 0.9 % P [facility] Eosinophils (Bld) [#/Vol] 0.0 10*3/uL [facility] Eosinophils/100 WBC (Bld) 0.0 % [facility] Erythrocyte distribution width (RBC) [Ratio] 14.8 % 11.5 - 15.0 % [facility] Hematocrit (Bld) [Volume fraction] 36.5 % 35 - 47 % [facility] Hemoglobin (Bld) [Mass/Vol] 11.5 g/dL Low 11.7 - 15.5 g/dL [facility] Interpretation and review of laboratory results Abnormal [facility] Lymphocytes (Bld) [#/Vol] 1.8 10*3/uL [facility] Lymphocytes/100 WBC (Bld) 9.3 % [facility] MCH (RBC) [Entitic mass] 25.4 pg Low 27 - 34 pg [facility] MCHC (RBC) [Mass/Vol] 31.6 g/dL Low 32 - 36 g/dL [facility] MCV (RBC) [Entitic vol] 81 fL 80 - 100 fL [facility] Monocytes (Bld) [#/Vol] 1.1 10*3/uL High [facility] Monocytes/100 WBC (Bld) 5.7 % P [facility] Neutrophils (Bld) [#/Vol] 16.1 10*3/uL High [facility] Neutrophils/100 WBC (Bld) 84.1 % [facility] Platelet mean volume (Bld) [Entitic vol] 7.8 fL 7 - 12 fL [facility] Platelets (Bld) [#/Vol] 261 10*3/uL [facility] RBC (Bld) [#/Vol] 4.53 10*6/uL [facility] WBC corrected for nucl RBC Auto (Bld) [#/Vol] 19.2 High [facility] COMPREHENSIVE METABOLIC PANE [employer] 07-02-2023 Albumin [Mass/Vol] 4.0 g/dL Normal 3.2-5.3 [facility] Comment on above: Performed By: #### 6 873-4, 45906-4, 24550-9, CMP, 88601-2, HA1C, CBCA #### [facility] ([id number]) [address], [address] [place] [address] ALP [Catalytic activity/Vol] 93 U/L Normal 39-130 [facility] Comment on above: Performed By: #### 6 873-4, 83363-8, 66747-3, CMP, 75800-7, HA1C, CBCA #### [facility] ([id number]) [address], [address] [place] [address] ALT [Catalytic activity/Vol] 17 U/L Normal 0-31 [facility] Comment on above: Performed By: #### 6 873-4, 10554-6, 86055-5, CMP, 50489-1, HA1C, CBCA #### [facility] ([id number]) [address], [address] [place] [address] Anion gap [Moles/Vol] 20 mmol/L High 5-15 [facility] Comment on above: Performed By: #### 6 873-4, 09386-8, 22440-1, CMP, 46418-2, HA1C, CBCA #### [facility] ([id number]) [address], [address] [place] [address] AST [Catalytic activity/Vol] 25 U/L Normal 0-41 [facility] Comment on above: Performed By: #### 6 873-4, 46139-4, 80660-3, CMP, 81325-4, HA1C, CBCA #### [facility] ([id number]) [address], [address] [place] [address] Bilirubin [Mass/Vol] 0.2 mg/dL Low 0.3-1.2 [facility] Comment on above: Performed By: #### 6 873-4, 30358-1, 20342-0, CMP, 30073-7, HA1C, CBCA #### [facility] ([id number]) [address], [address] [place] [address] Calcium [Mass/Vol] 7.0 mg/dL Low 8.5-10.5 [facility] Comment on above: Performed By: #### 6 873-4, 09984-9, 04233-4, CMP, 53367-6, HA1C, CBCA #### [facility] ([id number]) [address], [address] [place] [address] Chloride [Moles/Vol] 116 mmol/L High 98-109 [facility] Comment on above: Performed By: #### 6 873-4, 01085-3, 05318-5, CMP, 53995-7, HA1C, CBCA #### [facility] ([id number]) [address], [address] [place] [address] CO2 [Moles/Vol] 5 mmol/L Critically low 22-32 [facility] Comment on above: Performed By: #### 6 873-4, 48886-8, 45837-6, CMP, 57401-5, HA1C, CBCA #### [facility] ([id number]) [address], [address] [place] [address] Creatinine [Mass/Vol] 0.71 mg/dL Normal 0.40-1.00 [facility] Comment on above: Result Comment: METH OD TRACEABLE TO IDMS STANDARD Performed By: #### 6 873-4, 10408-0, 38126-6, CMP, 72331-5, HA1C, CBCA #### [facility] ([id number]) [address], [address] [place] [address] eGFR (CKD-EPI) NON-RACE DEPENDENT >90 Normal >59 [facility] Comment on above: Result Comment: Reported eGFR is based on the CKD-EPI 2020 equation that does not use a race coefficient. Performed By: #### 6 873-4, 37798-7, 32257-5, CMP, 40530-2, HA1C, CBCA #### [facility] ([id number]) [address], [address] [place] [address] Glucose [Mass/Vol] 260 mg/dL High 65-99 [facility] Comment on above: Performed By: #### 6 873-4, 81591-1, 38396-3, CMP, 06816-5, HA1C, CBCA #### [facility] ([id number]) [address], [address] [place] [address] Potassium [Moles/Vol] 4.6 mmol/L Normal 3.5-5.0 [facility] Comment on above: Performed By: #### 6 873-4, 34537-0, 43628-5, CMP, 99868-6, HA1C, CBCA #### [facility] ([id number]) [address], [address] [place] [address] Protein [Mass/Vol] 6.4 g/dL Normal 6.0-8.0 [facility] Comment on above: Performed By: #### 6 873-4, 25319-7, 54628-2, CMP, 43283-1, HA1C, CBCA #### [facility] ([id number]) [address], [address] [place] [address] Sodium [Moles/Vol] 141 mmol/L Normal 134-146 [facility] Comment on above: Performed By: #### 6 873-4, 96811-3, 55934-0, CMP, 18929-0, HA1C, CBCA #### [facility] ([id number]) [address] [facility], [address] [place] [address] Urea nitrogen [Mass/Vol] 16 mg/dL Normal 5-23 [facility] Comment on above: Performed By: #### 6 873-4, 63326-7, 24824-9, CMP, 79998-3, HA1C, CBCA #### [facility] ([id number]) [address] [facility] [place] [address] Coding Summaryon 07-02-2023 Coding Summary [employer]Base 64 GiobdfcmDKk3xHl+PGhl YWQ+PY5PFSBnO38uaCGd dB8iR1NFTFbEKbxoFXDO EEpAAmXsmuCtXN5lgJOb ZXJu IC8+CS7lGMKwFnuzsTOb i8O2bBX7H43xxz2qZLmf gDD4FOUqMzUclkcgu7vm eHg1OUtwLoseLzOf ABGyyV42MPB6uG93Pt71 zZWnrBSmq9jtoQr6ExCp NREaMKW1dWpmPBpgw2Pe PKYvX63pkELlh5L3 IGNvbGxhcHNlOyBlbXB0 rC0kUWbraphgw5dkfaij Zno7qn80mKTje8L3kES2 R8WbfpW9YKDqwYLg KcwjfJABlP6jjblae3xx vhpxXsUmEQCfVKo7DZw7 WAYxbPxfMpAgPL20LLW4 EDWtjiPqY5RpXHKu cEtdMbJ9c7F0Zu3CC3NI BdepD0CVLCYPGZiftOP+ TQ95vm98B2WyBaeoZft5 WTRyUJR3fWM8rF4z CILxVFxja7L3qZF1O5My ylZxbw6qb6sbZOQtCLmr P33yfDKll2Y3EXDefST0 PZZnkSabFlTntP94 Oyc+BQFozGbzk8JiIihe e1iip3jygFf1MhpsONQc xqCmbYsdUUA5q3MmVn0g DVRliWM0sZM5cF8t NnAxJfK0TPtbF044ZwBc aQDfEffoZ22sA8EnrBA+ NJFjHpc7RCKgpSusZA7m U3UtOOVjrfocsXMc oTltGP3tXSJfhszeWGAi qW3aJSAiD4k5JvYkFoN8 XXzuZ3SaRTSltkjeYc97 vZ5pPbNbYhQ9ZGkq I8SneoC6TWDvgERuTDfd OQI5V20bg5W1VQDjGJSv NWZ8eRK8aD5svChvmgto bGVmdDsgdmVydGlj OMxlTXwlD477VANwfGrw PkNvZGluZyBEYXRlOiAg MDEvMDMvMjAyNDwvdGQ+ LEYyUFC6xYviPKZn xQKlSEjpPg2lfQrpkKkg LB1sUOHkprmtMAQkdV7m JNJhqTXduVhiYM3oBBOr yamrl134PsRiIMR9 GXWxrPBhL1SoyG2aBfUr VHPzQCAsH0GzuSEcVGlj U126YBkgRiC6XDAnlwUq D8FiMPYenOcpGbK8 t6Y8Hk5An5DvbcytD7Yx iPOiVaBjCxeqYVe7O8Mb PjwvdHI+GX18LMOyMP62 IGl2KCB6yRnnMIfa CSPlR6MggY8zAgXeMDPl ZGRkOyc+PHRhYmxlIHdp ZHRoPScxMDAlJyBzdHls TD4mUk0wNYZtOXWt qDhfdOKaJfXju0ceEESw FHerCU8mpEjoW2QjuBP9 NKXdz9d5Zf00S79aE5Jp dXA+GRPwrXP6lZO1 tI7jCdOuVkT9AEngM459 PyBsiHPpGdnef9pce4pd jSk8CgX3IOSpqfSoqWnn DTE4o2YrJk19R72r IHdpZHRoPSIxNSUiIHZh sXgwjb5izZ5rId4+PGNv eBF7fEZ4lG5aNqCiVyI1 XJugR505TgTdsDGv Kzsld2wtb4stoMi3PcLa ICEklsXxiNroBKI5f1Gm Se62D3HhgAlfs7LqVkr1 lj95yERjk6O2eOI6 S3AwJSClaevvuARtaHyk KX4qUSRekdahBJFwzV4w VMUbX3x5KqSkUhW3NKpo W1PostN6ZWSxlSNz SKWibHBGzP3yseegu9dv cuusRnLbNTCpRZi5OGc7 TXBxoOnwOqZuMTX0VgH1 WWO9pVTwbP9ykOfe qpoznE3sDgd+XUP1qQIk oRYCGE1zEndsgMJ+PHRk MGE5sKejBUrvXKUpnU4a VXRpL8e7AuIfSaN9 VYnkG8AdutE0MMRnsLSa OIDopYHYyQ8otzjua8bt jkwsZyNqCQRfTQa7QIt7 LWFsaWduOiBsZWZ0 AjR6ZKU3dJWagH2lcSgq blpjoU7oCml+QmlydGgg SUY0CQv2P6HtDho7PWLh eDyzWP6maYGfOBhw Rh1ftEertXzoAC6gIKAv mvmnb307IgXav7fbFNJf lHJfMRcwVOM0I54ho4R8 BSTfUNAtTZR1kFF6 xA5oiJlyaxxypCDmfSpj lkPxdMujTTjyHCgkM862 ZECpgTcpJhNfKCa8Y8Gm Dim3OSGxvRqoJX0h rDUfUXbrGg6uyLcocKdq LE5pKSJvpzqbw136ZnHw q3ieCHUcgRRnGUjqTTM2 Y16it5A4JTKwYCSp OTG9nXJ0bO3fjNinyrcg bGVmdDsgdmVydGljYWwt ULobW337JDUnmHciWbDw mQq1M9RdHcs9JMLy yRzyTH2ziIKsBQivCw5x fVfxhFtqFN2bRDHluijr f347IaAwd1olQLWvfQGl HHhmKQS0U74zt0B8 AAMzORJtILX5pNO8tT1g bGlnbjogbGVmdDsgdmVy aYroOSbrPIziS267SAGz cDsnPlBhdGllbnQg PAsbOOu5R5PfNewkfXY+ XF27OWHjJR81qQNovHXg b6yliAv9KqZyIBVhUBF7 wTnvSJaff2LxTZZa V07aaJPza0U3OZKdiPfm qMJxZkLguQP5hJ3hKWsh agoxz6mciisrQoqia4wr yi52sB46X67pZImz ZHRoPSIzMCUiIHZhbGln fl7xtF1kYo6+PGNvbCB3 rAL9vY8sLZQiXdM0GUts A069RpEqbPJpIqjk k6mky2arrVo4YtR6FXVb ywQggNvdFEU8f9FjCz35 W04sZGjnHSJpDXDmVVUw UZRfkQvafk4qjM2p Ii8+SASwoUR7mPW4gC1r DeDiTfC2BIdeI665LyXy hXWlRnbsY73gQ3YtxJA+ TZFaMll7QJObsKlu DH0qrJNqXBtqPy7zBUF4 NxMdCiMwBRgiS1VbJFMs lxikcapbdFI4OQYyNUZz fL00Wu6whUakATAh sVIQoZ8axqdru1pojyxl XmIbDSOvBFp0BNu7XJOx fLcvIkRfMPZ0ZvJ5MFL1 jQCpxI7xkHhyfnwf vH5nF2GnLQOkdyvgPt67 jB1tHxRaAaI7UXhyXzb+ VR6YXDWSMCXOGXqOJMPT WGPVXFS6O3DlKkm3 HFXtuYslOR6gmBFoIQlc Cf9kaXeqxNrsAT7qUHTc mckwRBQbeH8kBKInuXEt wGuwLT2nZOQsmlmw e922JdHbNNP9NSHjoVKq J4AelK6nAsPlYTHdGQAm O4BkpFDvIBinA117XTdt SjI3BOTzhiTyU6Rg HOEbzMwkUzB2a7M5Qs7n Xd5xOT5vBZiwXY19TS38 lTQkf7W9kPS5K2HcIPYd kslynrpjpFG8LBHi XVXunX84uSHcQMcmKt9v w7D7a819KSWuFWZjhZ94 Da9bjMmnXJTwwTTPwQ1x asndq9qryqwvElRq MMBmMQo5ZTx3XFNceTry DkCqYWX7ZwD5RPE0sGNh eQ9zfZlzoggtvB4dKmf+ XlHaGDTidwD3C0Hu Sgm5BIUpsFycDG1ibSUx BTjbAj7ncPpsfJauKD8y QWIkvumwYVAspE1eNKCr oWHfeQmwQF7lYTWd njpiu644CaUtJWY0UOQn xRXcP5CnzP5vSdNvYRTm UOZcM8WruKOeKThiO361 IXrkBiI6FTNybjOh V8KzHSHaeLtgFtK7u2M0 Pn9HPI1HVLZ0Z5QxQdu6 BCLluPmeOJ8txEErYIol Ih5ofAyciEhdVF9m UNSzehhzBIWsyF0cRPEb cTKgkIydLT5ySDJndits q642MtSbMJP4DIWqgLIl M7FnxK1vIkRfRMTu MVDaT0YygRXnGOffB115 TGuhPwV1XOZdraJbA4Tt BPZbiVtyHjB6y2L8Lz0Y pbKwuWxvolP8U2Fl PjwvdHI+MQ15CHIuNI93 zPJqfHAyc1dvsMp3UeCh JVHqKEK2lJvtPSoeq7Ep WGOiQ75mnWTdm6J3 IGNvbGxhcHNlOyBlbXB0 lW6wGEnicpjpj8kzxyqm Jzzdd4kcne30pL51J42c IHdpZHRoPSIzMCUi VMEixQuuox9dqH1xFe6+ EWNzgOS0jLI7rE3fVxUc OaF7ADrrZ531FjBktOQp Gsxep2yul9rkaNv0 IjIwJSIgdmFsaWduPSJ0 d6OaZm10U77rPAfzEHNm SKOyUBBoFXQdpRxafx4m mD9yUc6+OQ5am2rp yv89fU26iFV+PHRkIHN0 aTrjGBtsPHIlbT9oCLqy AlL1VXXaPhAoyX72jVYf HNemUf1waVgpnVoq FH3hRYGuidrqm948PiRa c1ccIBZabSZtOIfmKUY9 B43mt0X7VRKrRLGpANW5 rFF0qB5ulWvxfznk bGVmdDsgdmVydGljYWwt RYcoS680MWMuzRyqSwOt jTQoT6adtnHYEO8fOcmb dGQ+RGVeYRT2cWhs YPmmKUNuxV4gUMZtC7w1 SoHoTkX4YTrvL9UeteT8 TTImiSMtBZJhhLOGcL7x eklgc5ucyyqdEgJj ICHsQFn7YMp9FOChfHar KeIoRRU4TyA4MMG6oTPy wH4coDsdowijzF9uLig+ RklOOjwvdGQ+PHRk NNN2wKzxMUmbIWLdgQ0f QTQaX6d7BgLyJyC4FYnt I8XebxD9XKHmwBKiPUWg hWXSeY2prtxno6dx mnyiGkUhXYApTKz8ERw3 JWBqtPlbDmAlHGO7IiL1 VHP1pVEdfS3nnQlxryql sB5gSap+TVJOOjwv dGQ+CFWoJWH6zHwqKXxa DBPivX5bQJEfB2o4PxEe PsL0XVqjP2RkjmJ7RZPw iVSrDPJmrVVIcS6i kpzdx1vmuxlhUdZzOCIi QOq3XVq0TKTtdPraUuCs EIF5NxW6VMI6wPEljM1d nRfcnpjmjA2kPhb+ ZPT7VNA4QR78EO77N8Fp PjwvdGFibGU+PHRhYmxl IHdpZHRoPScxMDAlJyBz mKxfCS8jHm2eOHFa LWN (more content not included)... Normal [facility] Comprehensive metabolic pane galileo 07-02-2023 Albumin [Mass/Vol] 4.0 g/dL 3.2 - 5.3 g/dL [facility] ALP [Catalytic activity/Vol] 93 U/L 39 - 130 U/L [facility] ALT No additional P-5'-P [Catalytic activity/Vol] 17 U/L 0 - 31 U/L [facility] Anion gap [Moles/Vol] 20 mmol/L High 5 - 15 mmol/L [facility] AST [Catalytic activity/Vol] 25 U/L 0 - 41 U/L [facility] Bilirubin [Mass/Vol] 0.2 mg/dL Low 0.3 - 1 .2 mg/dL [facility] Calcium [Mass/Vol] 7.0 mg/dL Low 8.5 - 10. 5 mg/dL [facility] Chloride [Moles/Vol] 116 mmol/L High 98 - 10 9 mmol/L [facility] CO2 [Moles/Vol] 5 mmol/L Critically low 22 - 32 mmol/L [facility] Creatinine [Mass/Vol] 0.71 mg/dL 0.40 - 1.00 mg/dL [facility] Comment on above: METHOD TRACEABLE TO IDMS STANDARD eGFR (CKD-EPI)non-race dependent - PINF [facility] Comment on above: Reported eGFR is based on the CKD-EPI 2020 equation that does not use a race coefficient. Glucose [Mass/Vol] 260 mg/dL High 65 - 99 mg/dL [facility] Potassium [Moles/Vol] 4.6 mmol/L 3.5 - 5.0 mmol/L [facility] Protein [Mass/Vol] 6.4 g/dL 6.0 - 8.0 g/dL [facility] Sodium [Moles/Vol] 141 mmol/L 134 - 146 mmol/L [facility] Urea nitrogen [Mass/Vol] 16 mg/dL 5 - 23 mg/d L [facility] ELECTROLYTESon 07-02-2023 Anion gap [Moles/Vol] 13 mmol/L Normal 5-15 [facility] Comment on above: Performed By: #### 6 873-4, ELEC, 2776-06 ####[facility] ([id number])[address], [place] [address] Chloride [Moles/Vol] 118 mmol/L High 98-109 [facility] Comment on above: Performed By: #### 6 873-4, ELEC, 2776-06 ####[facility] ([id number])[address], [place] [address] CO2 [Moles/Vol] 9 mmol/L Critically low 22-32 [facility] Comment on above: Performed By: #### 6 873-4, ELEC, 2776-06 ####[facility] ([id number])[address] [address] Potassium [Moles/Vol] 3.5 mmol/L Normal 3.5-5.0 [facility] Comment on above: Performed By: #### 6 873-4, ELEC, 2776- ####[facility] ([id number])[address], [place] [address] Sodium [Moles/Vol] 140 mmol/L Normal 134-146 [facility] Comment on above: Performed By: #### 6 873-4, ELEC, 2777-1 ####[facility] ([id number])[address], [place] [address] Electrolyte panelon 07-02-19 24 Anion gap [Moles/Vol] 13 mmol/L 5 - 15 mmol/L [facility] Chloride [Moles/Vol] 118 mmol/L High 98 - 10 9 mmol/L [facility] CO2 [Moles/Vol] 9 mmol/L Critically low 22 - 32 mmol/L [facility] Potassium [Moles/Vol] 3.5 mmol/L 3.5 - 5.0 mmol/L [facility] Sodium [Moles/Vol] 140 mmol/L 134 - 146 mmol/L [facility] Glucose Glucometer (BldC) [M ass/Vol]on 07-02-2023 Glucose [Mass/Vol] 237 mg/dL High 65-99 [facility] Glucose [Mass/Vol] 287 mg/dL High 65-99 [facility] Glucose [Mass/Vol] 233 mg/dL High 65 - 99 mg/dL [facility] Interpretation and review of laboratory results Abnormal [facility] Glucose [Mass/Vol] 247 mg/dL High 65-99 [facility] Glucose [Mass/Vol] 237 mg/dL High 65 - 99 mg/dL [facility] Interpretation and review of laboratory results Abnormal [facility] Glucose [Mass/Vol] 287 mg/dL High 65 - 99 mg/dL [facility] Interpretation and review of laboratory results Abnormal [facility] Glucose [Mass/Vol] 254 mg/dL High 65-99 [facility] Glucose [Mass/Vol] 255 mg/dL High 65-99 [facility] Glucose [Mass/Vol] 247 mg/dL High 65 - 99 mg/dL [facility] Interpretation and review of laboratory results Abnormal [facility] Glucose [Mass/Vol] 254 mg/dL High 65 - 99 mg/dL [facility] Interpretation and review of laboratory results Abnormal [facility] Glucose [Mass/Vol] 231 mg/dL High 65-99 [facility] Glucose [Mass/Vol] 255 mg/dL High 65 - 99 mg/dL [facility] Interpretation and review of laboratory results Abnormal [facility] Glucose [Mass/Vol] 231 mg/dL High 65 - 99 mg/dL [facility] Interpretation and review of laboratory results Abnormal [facility] HGB A1C (GLYCO-HGB)on 2023 Glucose [Mass/Vol] 398 mg/dL Normal [facility] Comment on above: Performed By: #### 6 873-4, 68036-0, 57565-7, CMP, 35731-8, HA1C, CBCA #### [facility] ([id number]) [address], [address] [place] [address] HbA1c (Bld) [Mass fraction] 15.5 % High 4.4-5.6 [facility] Comment on above: Result Comment: NOTE ADA Guidelines Result HgbA1c Normal : less than 5.7 % Prediabetes : 5.7 % to 6.4 % Diabetes : > 6.4 % Use with caution in patients with abnormal hemoglobin variants as the half-life of red blood cells and in vivo glycation rates are affected. Performed By: #### 6 873-4, 51367-4, 17382-3, CMP, 94069-5, HA1C, CBCA #### [facility] ([id number]) [address], [address] [place] [address] Hemoglobin A1con 07-02-2023 Average glucose Estimated from glycated hemoglobin (Bld) [Mass/Vol] 398 mg/dL [facility] HbA1c (Bld) [Mass fraction] 15.5 % High 4.4 - 5.6 % [facility] Comment on above: NOTE ADA Guidelines Result HgbA1c Normal : less than 5.7 % Prediabetes : 5.7 % to 6.4 % Diabetes : > 6.4 % Use with caution in patients with abnormal hemoglobin variants as the half-life of red blood cells and in vivo glycation rates are affected. Interpretation and review of laboratory results Abnormal [facility] Lactateon 07-02-2023 Lactate (P denis) [Moles/Vol] 0.8 mmol/L 0.4 - 2.0 mmol/L [facility] Lactate (P denis) [Moles/Vol]o n 07-02-2023 Lactate [Moles/Vol] 0.8 mmol/L Normal 0.4-2.0 [facility] Comment on above: Performed By: #### 6 873-4, 06938-2, 59200-2, CMP, 59077-4, HA1C, CBCA #### [facility] ([id number]) [address] [place] [address] [facility] MAGNESIUMon 07-02-2023 Magnesium [Mass/Vol] 1.7 mg/dL Low 1.8-2.6 [facility] Comment on above: Performed By: #### 6 873-4, 66652-4, 78823-2, CMP, 23726-7, HA1C, CBCA #### [facility] ([id number]) [address] [place] [address] Magnesiumon 07-02-2023 Magnesium [Mass/Vol] 1.7 mg/dL Low 1.8 - 2 .6 mg/dL [facility] Magnesium [Mass/Vol]on 07-02 Interpretation and review of laboratory results Abnormal [facility] No Panel Informationon 07-02 Interpretation and review of laboratory results Abnormal [facility] Interpretation and review of laboratory results Abnormal [facility] PHOSPHORUSon 07-02-2023 Phosphate [Mass/Vol] mg/dL Critically low 2.4-4.9 [facility] Comment on above: Performed By: #### 6 873-4, ELEC, 2777-1 ####[facility] ([id number])[address], [place] [address] Phosphoruson 07-02-2023 Phosphate [Mass/Vol] mg/dL Critically low 2.4 - 4.9 mg/dL [facility] TROPONIN Ion 07-02-2023 Troponin I.cardiac [Mass/Vol] 0.93 ng/mL Critically high 0.00-0.04 [facility] Comment on above: Result Comment: Concentrations greater than or equal to 0.05 ng/ml are considered elevated. Elevations of Troponin may be due to causes other than myocardial ischemia. Recommend serial Troponin testing be performed. Performed By: #### 6 873-4, 37345-6, 57612-4, CMP, 72028-1, HA1C, CBCA #### [facility] ([id number]) [address], [address] [place] [address] Troponin Ion 07-02-2023 Troponin I.cardiac [Mass/Vol] 0.93 ng/mL Critically high 0.00 - 0.04 ng/mL [facility] Comment on above: Concentrations greater than or equal to 0.05 ng/ml are considered elevated. Elevations of Troponin may be due to causes other than myocardial ischemia. Recommend serial Troponin testing be performed. VENOUS BLOOD GASon CAMI'S TEST Normal [facility] Comment on above: Performed By: #### V BG #### [facility] ([id number]) [address] [place] [address] BASE,DEFICIT 26.0 MMOL/L High 0.0-2.0 [facility] Comment on above: Performed By: #### V BG #### [facility] ([id number]) [address] [place] [address] Body temperature 98.6 [degF] Normal 37.0 [facility] Comment on above: Performed By: #### V BG #### [facility] ([id number]) [address] [place] [address] HCO3 (Bld) [Moles/Vol] 4.5 mmol/L Low 20.0-24.0 [facility] Comment on above: Performed By: #### V BG #### [facility] ([id number]) [address] [place] [address] INSP. O2 CONC. 21 % Normal [facility] Comment on above: Performed By: #### V BG #### [facility] ([id number]) [address] [place] [address] Oxygen saturation in Blood 25.0 % Low >80.0 [facility] Comment on above: Performed By: #### V BG #### [facility] ([id number]) [address] [place] [address] OXYGEN SOURCE [facility] Comment on above: Performed By: #### V BG #### [facility] ([id number]) [address] [place] [address] PCO2, VENOUS 20.1 MMHG Low 35-50 [facility] Comment on above: Performed By: #### V BG #### [facility] ([id number]) [address] [place] [address] PH, VENOUS 6.956 Low 7.320-7.420 [facility] Comment on above: Performed By: #### V BG #### [facility] ([id number]) [address] [place] [address] PO2, VENOUS 27 MMHG Low 30-50 [facility] Comment on above: Performed By: #### V BG #### [facility] ([id number]) [address] [place] [address] SAMPLE SITE N/A Normal [facility] Comment on above: Performed By: #### V BG #### [facility] ([id number]) [address] [place] [address] SAMPLE TYPE VENOUS Normal [facility] Comment on above: Performed By: #### V BG #### [facility] ([id number]) [address] [place] [address] C Bloodon 06-17-2023 C Blood No growth at 5 Days Normal [facility] Comment on above: Performed By: #### 6 [id number] ####[facility] (DEFAULT)[address] [place] [address] Coding Queryon 06-17-2023 Coding Query HIM CODING QUERY FORM Accurate coding and billing requires that the principal diagnosis, secondary diagnosis and procedures be supported by physician documentation and that this documentation be reflected in the discharge summary (if required for patient type). Any time this information is not complete, it is the certified nurse midwife?s responsibility to query the physician. Based on medical record review, the following issues have been identified: (XX ) Please complete ED Note. Thank you for your cooperation and timely attention to this matter. Magnolia griffin [Electronically Signed on: 06/26/2023 17:47 EST] Jaun Uribe MD [Verified on: 06/26/2023 17:47 EST] Jaun Uribe MD [Transcribed on: 06/17/2023 15:38 EST] [facility] Provider Orderson 06-17-2023 Provider Orders [id number] [facility]-16-2023 Consent Forms [id number]# [facility] 06-16-2023 Provider Orders [id number] #1.00[facility] Telemetry Stripson Telemetry Strips [id number] [facility] Acute Hepatitis LCon 023 HBsAg Screen LC Negative Invalid Interpretation Code Negative [facility] Comment on above: Performed By: #### 8 [id number] #### [facility] (DEFAULT) [address] [place] [address] Hep A Ab, IgM LC Negative Invalid Interpretation Code Negative [facility] Comment on above: Performed By: #### 6 [id number] #### [facility] (DEFAULT) [address] [place] [address] Hep B Core Ab, IgM LC Negative Invalid Interpretation Code Negative [facility] Comment on above: Performed By: #### 5 [id number] #### [facility] (DEFAULT) [address] [place] [address] Hepatitis C Ab LC Non-Reactive Invalid Interpretation Code Non Reactive [facility] Comment on above: Result Comment: Perf ormed At: [facility] [address] [id number] Vilma Ho PhD Ph:[phone] Performed By: #### 4 [id number] #### [facility] (DEFAULT) [address] [place] [address] RPR, Rfx Qn RPR/Confirm TP L Con 06-14-2023 RPR LC Non-Reactive Invalid Interpretation Code Non Reactive [facility] Comment on above: Result Comment: Perf ormed At: [facility] [address] [id number] Vilma Ho PhD Ph:[phone] Performed By: #### 2 053822, [id number], [id number] #### [facility] (DEFAULT) [address] [place] [address] .Auto Diff - Auto Irwin % 7 % Normal 07-11 [facility] Comment on above: Performed By: #### 2 335092, [id number], 7147387 #### [facility] (DEFAULT) [address] [place] [address] Baso Abs# 0.0 x10 Normal 0.0-0.2 [facility] Comment on above: Performed By: #### 2 254405, [id number], 4076052 #### [facility] (DEFAULT) [address] [place] [address] Basophils/100 WBC (Bld) 0.4 % Normal 0.2-2.0 [facility] Comment on above: Performed By: #### 2 299695, [id number], [id number] #### [facility] (DEFAULT) [address] [place] [address] Eos Abs# 0.2 x10 Normal 0.0-0.4 [facility] Comment on above: Performed By: #### 2 486408, [id number], 1369436 #### [facility] (DEFAULT) [address] [place] [address] Eosinophils/100 WBC (Bld) 2.2 % Normal 0.9-4.0 [facility] Comment on above: Performed By: #### 2 318091, [id number], 7818109 #### [facility] (DEFAULT) [address] [place] [address] Lymph Abs# 2.7 x10 Normal 1.3-2.9 [facility] Comment on above: Performed By: #### 2 833008, [id number], 0583360 #### [facility] (DEFAULT) [address] [place] [address] 21776 Lymphocytes/100 WBC (Bld) 36 % Normal 14-48 [facility] Comment on above: Performed By: #### 2 208209, [id number], 8112673 #### [facility] (DEFAULT) [address] [place] [address] Irwin Abs# 0.5 x10 Normal 0.0-0.8 [facility] Comment on above: Performed By: #### 2 636561, [id number], 6587067 #### [facility] (DEFAULT) [address] [place] [address] 09374 Neut Abs# 4.0 x10 Normal 1.5-9.2 [facility] Comment on above: Performed By: #### 2 953328, [id number], 7983666 #### [facility] (DEFAULT) [address] [place] [address]206 Neutrophils/100 WBC (Bld) 54 % Normal 44-88 [facility] Comment on above: Performed By: #### 2 081207, [id number], 4175872 #### [facility] (DEFAULT) [address] [place] [address] [facility] 06-13-2023 eGFR AA >60 Invalid Interpretation Code [facility] Comment on above: Order Comment: While on Insulin Drip Performed By: #### 2 773595, [id number], [id number] #### [facility] (DEFAULT) [address] [place] [address] 68703 eGFR Non AA >60 Invalid Interpretation Code [facility] Comment on above: Order Comment: While on Insulin Drip Performed By: #### 2 006237, [id number], 5189925 #### [facility] (DEFAULT) [address] [place] [address] 18854 Anion gap [Moles/Vol] 8.7 mmol/L Normal 5.0-19.0 [facility] Comment on above: Order Comment: While on Insulin Drip Performed By: #### 2 531939, [id number], 7880869 #### [facility] (DEFAULT) [address] [place] [address] Calcium [Mass/Vol] 8.0 mg/dL Low 8.9-10.3 [facility] Comment on above: Order Comment: While on Insulin Drip Performed By: #### 2 810115, [id number], 5762328 #### [facility] (DEFAULT) [address] [place] [address]1608 Chloride [Moles/Vol] 106 mmol/L Normal 101-111 [facility] Comment on above: Order Comment: While on Insulin Drip Performed By: #### 2 115823, [id number], 7982134 #### [facility] (DEFAULT) [address] [place] [address]7438 CO2 [Moles/Vol] 21 mmol/L Normal 21-32 [facility] Comment on above: Order Comment: While on Insulin Drip Performed By: #### 2 842424, [id number], 0167713 #### [facility] (DEFAULT) [address] [place] [address]74 Creatinine [Mass/Vol] 0.58 mg/dL Low 0.60-1.30 [facility] Comment on above: Order Comment: While on Insulin Drip Performed By: #### 2 915453, [id number], 8548690 #### [facility] (DEFAULT) [address] [place] [address] 68121 Glucose [Mass/Vol] 388.0 mg/dL High 74.0-118.0 [facility] Comment on above: Order Comment: While on Insulin Drip Performed By: #### 2 991750, [id number], 8988001 #### [facility] (DEFAULT) [address] [place] [address] Osmolality 280 mOsm/L Invalid Interpretation Code [facility] Comment on above: Order Comment: While on Insulin Drip Performed By: #### 2 653501, [id number], 7815084 #### [facility] (DEFAULT) [address] [place] [address] 47945 Potassium [Moles/Vol] 3.7 mmol/L Normal 3.6-5.1 [facility] Comment on above: Order Comment: While on Insulin Drip Performed By: #### 2 303629, [id number], 1611643 #### [facility] (DEFAULT) [address] [place] [address] 62566 Sodium [Moles/Vol] 132.0 mmol/L Low 136.0-144.0 [facility] Comment on above: Order Comment: While on Insulin Drip Performed By: #### 2 947808, [id number], 7425154 #### [facility] (DEFAULT) [address] [place] [address] 12197 Urea nitrogen [Mass/Vol] 12 mg/dL Normal 8- [facility] Comment on above: Order Comment: While on Insulin Drip Performed By: #### 2 929806, [id number], 2225109 #### [facility] (DEFAULT) [address] [place] [address] 46822 Urea nitrogen/Creatinine [Mass ratio] 20.6 mg/mg High 4.6-16.2 [facility] Comment on above: Order Comment: While on Insulin Drip Performed By: #### 2 357068, [id number], 3931505 #### [facility] (DEFAULT) [address] [place] [address] 52913 eGFR AA >60 Invalid Interpretation Code [facility] Comment on above: Order Comment: While on Insulin Drip Performed By: #### 2 412421, [id number], 5262869 ####[facility] (DEFAULT)[address] [place] [address] 94518 eGFR Non AA >60 Invalid Interpretation Code [facility] Comment on above: Order Comment: While on Insulin Drip Performed By: #### 2 304955, [id number], 5056472 ####[facility] (DEFAULT)[address] [place] [address] 07057 Anion gap [Moles/Vol] 1.6 mmol/L Low 5.0-19.0 [facility] Comment on above: Order Comment: While on Insulin Drip Performed By: #### 2 687899, [id number], 0544816 ####[facility] (DEFAULT)[address] [place] [address] 10436 Calcium [Mass/Vol] 7.6 mg/dL Low 8.9-10.3 [facility] Comment on above: Order Comment: While on Insulin Drip Performed By: #### 2 181109, [id number], 1096790 ####[facility] (DEFAULT)[address] [place] [address] 41639 Chloride [Moles/Vol] 113 mmol/L High 101-111 [facility] Comment on above: Order Comment: While on Insulin Drip Performed By: #### 2 521765, [id number], 3838844 ####[facility] (DEFAULT)[address] [place] [address] 48329 CO2 [Moles/Vol] 23 mmol/L Normal 21-32 [facility] Comment on above: Order Comment: While on Insulin Drip Performed By: #### 2 270030, [id number], 6479601 ####[facility] (DEFAULT)[address] [place] [address] 82813 Creatinine [Mass/Vol] 0.57 mg/dL Low 0.60-1.30 [facility] Comment on above: Order Comment: While on Insulin Drip Performed By: #### 2 042353, [id number], 9707329 ####[facility] (DEFAULT)[address] [place] [address] 87599 Glucose [Mass/Vol] 234.0 mg/dL High 74.0-118.0 [facility] Comment on above: Order Comment: While on Insulin Drip Performed By: #### 2 445923, [id number], 6613943 ####[facility] (DEFAULT)[address] [place] [address] 59828 Osmolality 275 mOsm/L Invalid Interpretation Code [facility] Comment on above: Order Comment: While on Insulin Drip Performed By: #### 2 265431, [id number], 5776088 ####[facility] (DEFAULT)[address] [place] [address] 94713 Potassium [Moles/Vol] 3.6 mmol/L Normal 3.6-5.1 [facility] Comment on above: Order Comment: While on Insulin Drip Performed By: #### 2 029174, [id number], 6101012 ####[facility] (DEFAULT)[address] [place] [address] Sodium [Moles/Vol] 134.0 mmol/L Low 136.0-144.0 [facility] Comment on above: Order Comment: While on Insulin Drip Performed By: #### 2 435640, [id number], 2840117 ####[facility] (DEFAULT)[address] [place] [address] Urea nitrogen [Mass/Vol] 11 mg/dL Normal 8-26 [facility] Comment on above: Order Comment: While on Insulin Drip Performed By: #### 2 172293, [id number], 0400171 ####[facility] (DEFAULT)[address] [place] [address] Urea nitrogen/Creatinine [Mass ratio] 19.2 mg/mg High 4.6-16.2 [facility] Comment on above: Order Comment: While on Insulin Drip Performed By: #### 2 762512, [id number], 9916481 ####[facility] (DEFAULT)[address] [place] [address] CBC w/ Auto Diffon 3 Erythrocyte distribution width (RBC) [Ratio] 15.1 % High 11.5-15.0 [facility] Comment on above: Performed By: #### 2 666700, [id number], 1944280 #### [facility] (DEFAULT) [address] [place] [address] Hematocrit (Bld) [Volume fraction] 32.3 % Low 33.7-40.4 [facility] Comment on above: Performed By: #### 2 666316, [id number], 9433559 #### [facility] (DEFAULT) [address] [place] [address] Hemoglobin (Bld) [Mass/Vol] 10.6 g/dL Low 11.3-15.9 [facility] Comment on above: Performed By: #### 2 583499, [id number], 6510195 #### [facility] (DEFAULT) [address] [place] [address] 50831 Man Diff? Auto Invalid Interpretation Code [facility] Comment on above: Performed By: #### 2 809366, [id number], 5391098 #### [facility] (DEFAULT) [address] [place] [address] 18043 MCH (RBC) [Entitic mass] 26 pg Normal 24-34 [facility] Comment on above: Performed By: #### 2 386715, [id number], 3544742 #### [facility] (DEFAULT) [address] [place] [address] 59046 MCHC (RBC) [Mass/Vol] 33 g/dL Normal 26-37 [facility] Comment on above: Performed By: #### 2 773806, [id number], 7219112 #### [facility] (DEFAULT) [address] [place] [address] 44365 MCV (RBC) [Entitic vol] 78 fL Low 81-100 [facility] Comment on above: Performed By: #### 2 223258, [id number], 5641589 #### [facility] (DEFAULT) [address] [place] [address] 76298 Platelet 320 x10 Normal 138-427 [facility] Comment on above: Performed By: #### 2 893567, [id number], 3067969 #### [facility] (DEFAULT) [address] [place] [address] 69727 Platelet mean volume (Bld) [Entitic vol] 7.2 fL Normal 6.3-10.2 [facility] Comment on above: Performed By: #### 2 324934, [id number], 8774721 #### [facility] (DEFAULT) [address] [place] [address] 62812 RBC 4.14 x10 Normal 3.70-5.30 [facility] Comment on above: Performed By: #### 2 246888, [id number], 6962161 #### [facility] (DEFAULT) [address] [place] [address] 68655 WBC 7.4 x10 Normal 3.5-10.5 [facility] Comment on above: Performed By: #### 2 072702, [id number], 2435624 #### [facility] (DEFAULT) [address] [place] [address] 26917 CMP Standardon 06-13-2023 eGFR Non AA >60 Invalid Interpretation Code [facility] Comment on above: Performed By: #### 2 487135, [id number], 5069309 #### [facility] (DEFAULT) [address] [place] [address] 29200 eGFR AA >60 Invalid Interpretation Code [facility] Comment on above: Performed By: #### 2 982707, [id number], [id number] #### [facility] (DEFAULT) [address] [place] [address] 16251 Albumin [Mass/Vol] 3.1 g/dL Low 3.5-5.0 [facility] Comment on above: Performed By: #### 2 688334, [id number], 3436323 #### [facility] (DEFAULT) [address] [place] [address] 25785 Albumin/Globulin [Mass ratio] 1.1 {ratio} Low 1.4-2.6 [facility] Comment on above: Performed By: #### 2 680875, [id number], 7703065 #### [facility] (DEFAULT) [address] [place] [address] 48119 Alk Phos 59 IU/L Normal 32-91 [facility] Comment on above: Performed By: #### 2 067216, [id number], 1080969 #### [facility] (DEFAULT) [address] [place] [address] 15352 ALT [Catalytic activity/Vol] 17.0 U/L Normal 14.0-54.0 [facility] Comment on above: Performed By: #### 2 781984, [id number], 4068086 #### [facility] (DEFAULT) [address] [place] [address] 07860 Anion gap [Moles/Vol] 7.7 mmol/L Normal 5.0-19.0 [facility] Comment on above: Performed By: #### 2 526777, [id number], 1240722 #### [facility] (DEFAULT) [address] [place] [address] 89234 AST [Catalytic activity/Vol] 15 U/L Normal 15-41 [facility] Comment on above: Performed By: #### 2 990157, [id number], 9074926 #### [facility] (DEFAULT) [address] [place] [address] 33291 Bili Total 0.4 mg/dL Normal 0.3-1.2 [facility] Comment on above: Performed By: #### 2 385888, [id number], 3678165 #### [facility] (DEFAULT) [address] [place] [address] 51759 Calcium [Mass/Vol] 8.1 mg/dL Low 8.9-10.3 [facility] Comment on above: Performed By: #### 2 391822, [id number], 3581023 #### [facility] (DEFAULT) [address] [place] [address] 20408 Chloride [Moles/Vol] 106 mmol/L Normal 101-111 [facility] Comment on above: Performed By: #### 2 109965, [id number], 6616619 #### [facility] (DEFAULT) [address] [place] [address] 61953 CO2 [Moles/Vol] 24 mmol/L Normal 21-32 [facility] Comment on above: Performed By: #### 2 864811, [id number], 5323128 #### [facility] (DEFAULT) [address] [place] [address] 28609 Creatinine [Mass/Vol] 0.49 mg/dL Low 0.60-1.30 [facility] Comment on above: Performed By: #### 2 892460, [id number], 8567840 #### [facility] (DEFAULT) [address] [place] [address] 87604 Globulin (S) [Mass/Vol] 2.7 g/dL Normal 1.5-4.3 [facility] Comment on above: Performed By: #### 2 712070, [id number], 1102713 #### [facility] (DEFAULT) [address] [place] [address] 73955 Glucose [Mass/Vol] 128.0 mg/dL High 74.0-118.0 [facility] Comment on above: Performed By: #### 2 502250, [id number], 2786960 #### [facility] (DEFAULT) [address] [place] [address] 72504 Osmolality 269 mOsm/L Invalid Interpretation Code [facility] Comment on above: Performed By: #### 2 623797, [id number], 0248876 #### [facility] (DEFAULT) [address] [place] [address] 92804 Potassium [Moles/Vol] 3.7 mmol/L Normal 3.6-5.1 [facility] Comment on above: Performed By: #### 2 282730, [id number], 2682980 #### [facility] (DEFAULT) [address] [place] [address] 28832 Protein [Mass/Vol] 5.8 g/dL Low 6.5-8.1 [facility] Comment on above: Performed By: #### 2 646028, [id number], 7393393 #### [facility] (DEFAULT) [address] [place] [address] 55957 Sodium [Moles/Vol] 134.0 mmol/L Low 136.0-144.0 [facility] Comment on above: Performed By: #### 2 568307, [id number], 8168533 #### [facility] (DEFAULT) [address] [place] [address] 46218 Urea nitrogen [Mass/Vol] 11 mg/dL Normal 8-26 [facility] Comment on above: Performed By: #### 2 668593, 3519808814, 7769127 #### [facility] (DEFAULT) [address] [place] [address] 22461 Urea nitrogen/Creatinine [Mass ratio] 22.4 mg/mg High 4.6-16.2 [facility] Comment on above: Performed By: #### 2 789360, 1343281679, 7980297 #### [facility] (DEFAULT) [address] [place] [address] Case Management Noteon 06-13 Case Management Note [id number][facility]-13-[facility]23 Consent Forms [id number] [facility] HgbA1c Standardon 06-13-2023 .Hb 13.4 Invalid Interpretation Code [facility] Comment on above: Performed By: #### 1 [id number] ####[facility] (DEFAULT)[address] [place] [address] 86952 .Hgb A1c 2.01 g/dL Invalid Interpretation Code [facility] Comment on above: Performed By: #### 1 [id number] ####[facility] (DEFAULT)[address] [place] [address] 76205 Glucose [Mass/Vol] 407 mg/dL Invalid Interpretation Code [facility] Comment on above: Performed By: #### 1 [id number] ####[facility] (DEFAULT)[address] [place] [address] 96376 HbA1c (Bld) [Mass fraction] 15.8 % High 4.6-6.2 [facility] Comment on above: Performed By: #### 1 [id number] ####[facility] (DEFAULT)[address] [place] [address] 27126 Magnesiumon 06-13-2023 Magnesium [Mass/Vol] 1.87 mg/dL Normal 1.80-2.50 [facility] Comment on above: Performed By: #### 2 619601, [id number], 7651539 #### [facility] (DEFAULT) [address] [place] [address] 42863 Magnesium [Mass/Vol] 1.84 mg/dL Normal 1.80-2.50 [facility] Comment on above: Order Comment: While on Insulin Drip Performed By: #### 2 323680, [id number], 2882249 #### [facility] (DEFAULT) [address] [place], [place] [address] Magnesium [Mass/Vol] 2.02 mg/dL Normal 1.80-2.50 [facility] Comment on above: Order Comment: While on Insulin Drip Performed By: #### 2 417326, [id number], 1198678 ####[facility] (DEFAULT)[address] [place] [address] Nutrition Noteon 06-13-2023 Nutrition Note met with [...] in her van; just recently released from [place] - showed me her two ankle bracelets [...] (insulin pump); note current A1c 15.9%patient sees oxide furnace tender in [place] monthly (when she is able); encouraged patient to call endo's office to make another appt - also to call customer service at [facility] to get another remote so she can use her pump; ? patient to be sent home with insulin/pens for bg management after discharge; discussed that once patient is stable to have endo send referral to [facility] so she can come see me and publication distributor FELICIA for some diabetes education; unsure if [...] assist prn. ts Pt left AMA. Normal [facility] POCT Glucose Levelon 06-13- 023 Glucose, POC See Comment Invalid Interpretation Code 74118 [facility] Comment on above: Result Comment: Ruperto evans order, remove 1 diane Rodarte in ICU 06/13/2023 08:10:39 EST JW Performed By: #### 4 [id number] #### [facility] (DEFAULT) [address] [place] [address] 57773 Glucose [Mass/Vol] 191 mg/dL High 74-118 [facility] Comment on above: Performed By: #### 2 511455, [id number], 1284650 #### [facility] (DEFAULT) [address] [place] [address] 42539 Glucose [Mass/Vol] 129 mg/dL High 74-118 [facility] Comment on above: Performed By: #### 4 [id number] #### [facility] (DEFAULT) [address] [place] [address] 26820 Glucose [Mass/Vol] 119 mg/dL High 74-118 [facility] Comment on above: Performed By: #### 4 [id number] #### [facility] (DEFAULT) [address] [place] [address] 01631 Glucose [Mass/Vol] 193 mg/dL High 74-118 [facility] Comment on above: Performed By: #### 4 [id number] ####[facility] (DEFAULT)[address] [place] [address] 33772 Glucose [Mass/Vol] 294 mg/dL High 74-118 [facility] Comment on above: Performed By: #### 7 [id number], [id number] #### [facility] (DEFAULT) [address] [place] [address] 97092 Glucose [Mass/Vol] 362 mg/dL High 74-118 [facility] Comment on above: Performed By: #### 7 [id number], [id number] #### [facility] (DEFAULT) [address] [place] [address] 95064 Glucose [Mass/Vol] 234 mg/dL High 74-118 [facility] Comment on above: Performed By: #### 2 778112, [id number], 4501477 #### [facility] (DEFAULT) [address] [place] [address] 87986 Glucose [Mass/Vol] 185 mg/dL High 74-118 [facility] Comment on above: Performed By: #### 4 [id number] ####[facility] (DEFAULT)[address] [place] [address] 31371 Glucose [Mass/Vol] 165 mg/dL High 74-118 [facility] Comment on above: Performed By: #### 4 [id number] #### [facility] (DEFAULT) [address] [place] [address] 86760 Phoson 06-13-2023 Phosphate [Mass/Vol] 2.3 mg/dL Low 2.5-4.6 [facility] Comment on above: Performed By: #### 2 257303, [id number], 6222761 #### [facility] (DEFAULT) [address] [place] [address] 22106 Phosphate [Mass/Vol] 2.2 mg/dL Low 2.5-4.6 [facility] Comment on above: Performed By: #### 2 822078, 3710725092, 1477948 ####[facility] (DEFAULT)[address] [place] [address] 37506 Phosphate [Mass/Vol] 2.5 mg/dL Normal 2.5-4.6 [facility] Comment on above: Performed By: #### 2 352289, [id number], 1320223 ####[facility] (DEFAULT)[address] [place] [address] 57769 Progress Note - Nurseon 05-30 Progress Note - Nurse Patient left AMA. Patient wanted to leave today. Dr. Payne wanted to keep her til tomorrow. She is out of her medications. [Electronically Signed on: 06/13/2023 10:30 EST] Aster Bernal RN [Verified on: 06/13/2023 10:30 EST] Asetr Bernal RN [facility] Progress Note - Nurse Patient called Connor [...] on: 06/13/2023 10:32 EST] Aster Bernal RN [facility] Progress Note - Nurse Patient states thea [...] 06/13/2023 06:55 EST] Zenaida Yarbrough RN Normal [facility] Trigon 06-13-2023 Triglyceride [Mass/Vol] 177.0 mg/dL High 0.0-150.0 [facility] Comment on above: Performed By: #### 2 358735, [id number], 9012057 #### [facility] (DEFAULT) [address] [place] [address] .Auto Diff 1on 06-12-2023 Auto Irwin % 2 % Normal 07-11 [facility] Comment on above: Performed By: #### 1 9372902, 7992829359, 3984753426, 3246631740, 3344734, 5692828938, 2313390096, 1273499117, 3648338862 ####[facility] (DEFAULT)[address] [place] [address] Baso Abs# 0.1 x10 Normal 0.0-0.2 [facility] Comment on above: Performed By: #### 1 4029349, 8806007454, 7342248970, 0654992834, 4522800, 7333780378, 5014460234, 9044686590, 1188003517 ####[facility] (DEFAULT)[address] [place] [address] Basophils/100 WBC (Bld) 1.1 % Normal 0.2-2.0 [facility] Comment on above: Performed By: #### 1 6848586, 8328761706, 1220062845, 0803758346, 9359137, 0597219659, 1155851546, 8083600352, 6377943637 ####[facility] (DEFAULT)[address] [place] [address] Eos Abs# 0.0 x10 Normal 0.0-0.4 [facility] Comment on above: Performed By: #### 1 7438850, 3954019630, 4086212277, 9623510881, 9209073, 7030736603, 9718730366, 9548559478, 6321702445 ####[facility] (DEFAULT)[address] [place] [address] 70669 Eosinophils/100 WBC (Bld) 0.6 % Low 0.9-4.0 [facility] Comment on above: Performed By: #### 1 0429350, 1865088279, 8431064948, 3180701571, 1879538, 4861157528, 0302663465, 8323011225, 8758223675 ####[facility] (DEFAULT)[address] [place] [address] 53026 Lymph Abs# 0.9 x10 Low 1.3-2.9 [facility] Comment on above: Performed By: #### 1 8942886, 9285269338, 7099122697, 6028316893, 4907691, 0216020652, 6471863750, 1103289746, 4161676678 ####[facility] (DEFAULT)[address] [place] [address] 42535 Lymphocytes/100 WBC (Bld) 14 % Normal 14-48 [facility] Comment on above: Performed By: #### 1 7276873, 3274482061, 3648870794, 9210259190, 2963808, 3337349501, 8206552560, 9507233912, 3965983879 ####[facility] (DEFAULT)[address] [place] [address] 77813 Irwin Abs# 0.2 x10 Normal 0.0-0.8 [facility] Comment on above: Performed By: #### 1 7010602, 1029158890, 7431306877, 5408716606, 1990507, 6260242715, 9973140671, 7298978413, 4218000881 ####[facility] (DEFAULT)[address] [place] [address] 95940 Neut Abs# 5.6 x10 Normal 1.5-9.2 [facility] Comment on above: Performed By: #### 1 1879699, 0175716542, 3448643116, 1817879752, 4597199, 6722217801, 8910794569, 9692592078, 7128271976 ####[facility] (DEFAULT)[address] [place] [address] 72475 Neutrophils/100 WBC (Bld) 82 % Normal 44-88 [facility] Comment on above: Performed By: #### 1 3321404, 0838097535, 9176708497, 8065084958, 8490100, 4067856509, 2063496985, 2960394613, 0699572150 ####[facility] (DEFAULT)[address] [place] [address] 91039 Arterial Blood Gas Standardo n 06-12-2023 Base Excess Art -17.3 mmol/L Low -3.3-2.3 [facility] Comment on above: Performed By: #### 2 953879, 8765661877, 7448466 #### [facility] (DEFAULT) [address] [place] [address] 23420 Breakpoint Hemo Normal [facility] Comment on above: Performed By: #### 2 971725, 2352442757, 4645473 #### [facility] (DEFAULT) [address] [place] [address] 91189 Device Room Air Normal [facility] Comment on above: Performed By: #### 2 553998, 1474197603, 9435621 #### [facility] (DEFAULT) [address] [place] [address] 94915 Fio2 Art 21.0 % Normal 21.0-100.0 [facility] Comment on above: Performed By: #### 2 821042, 8518818372, 2591628 #### [facility] (DEFAULT) [address] [place] [address] 84268 HCO3 (Bld) [Moles/Vol] 9.4 mmol/L Low 22.0-27.0 [facility] Comment on above: Performed By: #### 2 577086, 9501678439, 4821069 #### [facility] (DEFAULT) [address] [place] [address] 30938 Oxygen saturation in Blood 97.8 % Normal 95.0-100.0 [facility] Comment on above: Performed By: #### 2 734791, 6774575902, 9718918 #### [facility] (DEFAULT) [address] [place] [address] 17074 pCO2 Art 25 mmHg Low 34-44 [facility] Comment on above: Performed By: #### 2 593006, [id number], 2375738 #### [facility] (DEFAULT) [address] [place] [address] 47185 pH Art 7.18 Critically abnormal 7.37-7.44 [facility] Comment on above: Result Comment: Resu lts handed to Dr Uribe by on 06/12/2023 @ 1302, RBD Performed By: #### 2 067968, [id number], 8795600 #### [facility] (DEFAULT) [address] [place] [address] 73123 pO2 Art 118 mmHg High 75-100 [facility] Comment on above: Performed By: #### 2 737297, 7049565678, 6804225 #### [facility] (DEFAULT) [address] [place] [address] 87663 Puncture Site Right Brachial Normal [facility] Comment on above: Performed By: #### 2 629836, 3338680780, 9869559 #### [facility] (DEFAULT) [address] [place] [address] 11525 Rate: 20 Invalid Interpretation Code [facility] Comment on above: Performed By: #### 2 088363, 1437134354, 5287434 #### [facility] (DEFAULT) [address] [place] [address] 94481 BMP Standardon 06-12-2023 eGFR Non AA >60 Invalid Interpretation Code [facility] Comment on above: Order Comment: While on Insulin Drip Performed By: #### 2 992061, 6734601759, 2618483 #### [facility] (DEFAULT) [address] [place] [address] 43070 eGFR AA >60 Invalid Interpretation Code [facility] Comment on above: Order Comment: While on Insulin Drip Performed By: #### 2 149332, 0428018994, 7038536 #### [facility] (DEFAULT) [address] [place] [address] 92271 Anion gap [Moles/Vol] 7.9 mmol/L Normal 5.0-19.0 [facility] Comment on above: Order Comment: While on Insulin Drip Performed By: #### 2 963005, 5919077429, 3897350 #### [facility] (DEFAULT) [address] [place] [address] 94670 Calcium [Mass/Vol] 7.7 mg/dL Low 8.9-10.3 [facility] Comment on above: Order Comment: While on Insulin Drip Performed By: #### 2 578440, 9419834593, 3875723 #### [facility] (DEFAULT) [address] [place] [address] 32124 Chloride [Moles/Vol] 110 mmol/L Normal 101-111 [facility] Comment on above: Order Comment: While on Insulin Drip Performed By: #### 2 085629, 8411577511, 5753290 #### [facility] (DEFAULT) [address] [place] [address] 62160 CO2 [Moles/Vol] 19 mmol/L Low 21-32 [facility] Comment on above: Order Comment: While on Insulin Drip Performed By: #### 2 575299, 8430920755, 4650926 #### [facility] (DEFAULT) [address] [place] [address] 61950 Creatinine [Mass/Vol] 0.90 mg/dL Normal 0.60-1.30 [facility] Comment on above: Order Comment: While on Insulin Drip Performed By: #### 2 166831, 9555281862, 4402855 #### [facility] (DEFAULT) [address] [place] [address] 39720 Glucose [Mass/Vol] 361.0 mg/dL High 74.0-118.0 [facility] Comment on above: Order Comment: While on Insulin Drip Performed By: #### 2 720157, 2984313301, 8284661 #### [facility] (DEFAULT) [address] [place] [address] 92954 Osmolality 280 mOsm/L Invalid Interpretation Code [facility] Comment on above: Order Comment: While on Insulin Drip Performed By: #### 2 911683, 8711693664, 1168050 #### [facility] (DEFAULT) [address] [place] [address] 75874 Potassium [Moles/Vol] 3.9 mmol/L Normal 3.6-5.1 [facility] Comment on above: Order Comment: While on Insulin Drip Performed By: #### 2 774038, 5089151297, 2616139 #### [facility] (DEFAULT) [address] [place] [address] 02613 Sodium [Moles/Vol] 133.0 mmol/L Low 136.0-144.0 [facility] Comment on above: Order Comment: While on Insulin Drip Performed By: #### 2 386649, 3582195861, 2801934 #### [facility] (DEFAULT) [address] [place] [address] 11993 Urea nitrogen [Mass/Vol] 11 mg/dL Normal 8-26 [facility] Comment on above: Order Comment: While on Insulin Drip Performed By: #### 2 378759, 1928282313, 6270938 #### [facility] (DEFAULT) [address] [place] [address] Urea nitrogen/Creatinine [Mass ratio] 12.2 mg/mg Normal 4.6-16.2 [facility] Comment on above: Order Comment: While on Insulin Drip Performed By: #### 2 179309, 4094090217, 3953871 #### [facility] (DEFAULT) [address] [place] [address] 12367 Breakpoint Chem Normal [facility] Comment on above: Performed By: #### 1 1119192, 1110073711, 7509966460, 7121769403, 6258738, 4649611266, 7932892146, 1591558446, 0921119850 ####[facility] (DEFAULT)[address] [place] [address] 03046 eGFR Non AA >60 Invalid Interpretation Code [facility] Comment on above: Performed By: #### 1 8750570, 5254158549, 2653598351, 8839976250, 7955461, 8067874805, 0807346214, 9316090598, 4250632565 ####[facility] (DEFAULT)[address] [place] [address] 39319 eGFR AA >60 Invalid Interpretation Code [facility] Comment on above: Performed By: #### 1 8240826, 6918816856, 8655961192, 4965634571, 2368677, 5450932798, 3203514712, 5424248861, 8783074951 ####[facility] (DEFAULT)[address] [place] [address] 75785 Anion gap [Moles/Vol] 21.7 mmol/L High 5.0-19.0 [facility] Comment on above: Performed By: #### 1 2921270, 4846323462, 9797943103, 0652411658, 8458113, 1940048121, 9620891487, 1457728368, 2462441548 ####[facility] (DEFAULT)[address] [place] [address] 26085 Osmolality 286 mOsm/L Invalid Interpretation Code [facility] Comment on above: Performed By: #### 1 3423155, 6814868300, 8705339350, 4352733257, 7685945, 6936995197, 5922088135, 0041328009, 9795633763 ####[facility] (DEFAULT)[address] [place] [address] 21656 Urea nitrogen/Creatinine [Mass ratio] 15.0 mg/mg Normal 4.6-16.2 [facility] Comment on above: Performed By: #### 1 0886654, 3082833283, 7574295109, 9590901199, 0625903, 2244644532, 9677536757, 8942937034, 4902792345 ####[facility] (DEFAULT)[address] [place] [address] 05333 Calcium [Mass/Vol] 8.6 mg/dL Low 8.9-10.3 [facility] Comment on above: Performed By: #### 1 5622620, 3500387516, 9894656124, 4349789725, 0846663, 0310977807, 4523511331, 8888392398, 2273105888 ####[facility] (DEFAULT)[address] [place] [address] Chloride [Moles/Vol] 96 mmol/L Low 101-111 [facility] Comment on above: Performed By: #### 1 0041053, 5899995414, 8720157866, 9994427150, 6377766, 5793749898, 9360575006, 7992673496, 5719104898 ####[facility] (DEFAULT)[address] [place] [address] 46499 CO2 [Moles/Vol] 12 mmol/L Low 21-32 [facility] Comment on above: Performed By: #### 1 3547005, 1156414763, 6548563399, 3907324949, 8681029, 9756410161, 1109412561, 5511886842, 1926513158 ####[facility] (DEFAULT)[address] [place] [address] 16057 Creatinine [Mass/Vol] 0.93 mg/dL Normal 0.60-1.30 [facility] Comment on above: Performed By: #### 1 3968404, 9729437206, 3956722819, 2479210655, 5901187, [id number], 5613158654, 8106285996, [id number] ####[facility] (DEFAULT)[address] [place] [address] 22818 Glucose [Mass/Vol] 708.0 mg/dL Critically abnormal 74.0-118.0 [facility] Comment on above: Result Comment: Crit ical result GLU 708 mg/dL called to and read back by jony sykes rn at 12-Jun-2023 13:52 by Frank. Performed By: #### 1 4339973, 3263692954, 4183807709, 8602628535, 8713083, 8976935788, 8533630963, 5830331158, 5057981442 ####[facility] (DEFAULT)[address] [place] [address] Potassium [Moles/Vol] 4.7 mmol/L Normal 3.6-5.1 [facility] Comment on above: Performed By: #### 1 4861292, 6683491234, 6206980822, 4762743127, 5695358, 6973476683, 6143831802, 4244492614, 6449683316 ####[facility] (DEFAULT)[address] [place] [address] Sodium [Moles/Vol] 125.0 mmol/L Low 136.0-144.0 [facility] Comment on above: Performed By: #### 1 0628642, 6096021975, 7346551196, 1557683830, 5874507, 8080877765, 1238444501, 8205559778, 5091388506 ####[facility] (DEFAULT)[address] [place] [address] Urea nitrogen [Mass/Vol] 14 mg/dL Normal 8-26 [facility] Comment on above: Performed By: #### 1 6387578, 4167222481, 4949633569, 3494112028, 3498431, 7632927998, 9027664258, 9410706643, 2759728617 ####[facility] (DEFAULT)[address] [place] [address] CBC w/ Auto Diffon 3 Erythrocyte distribution width (RBC) [Ratio] 15.0 % Normal 11.5-15.0 [facility] Comment on above: Performed By: #### 1 2334419, 2673930972, 0073381110, 7726537519, 5423886, 5817128976, 6823264999, 0258705875, 0725069622 ####[facility] (DEFAULT)[address] [place] [address] Hematocrit (Bld) [Volume fraction] 39.0 % Normal 33.7-40.4 [facility] Comment on above: Performed By: #### 1 1384320, 1585551723, 9898007632, 1132812705, 5391903, 8706357367, 0050176937, 6528219528, 8473517650 ####[facility] (DEFAULT)[address] [place] [address] Hemoglobin (Bld) [Mass/Vol] 12.3 g/dL Normal 11.3-15.9 [facility] Comment on above: Performed By: #### 1 8819474, 4355256602, 2736809937, 4518470075, 4779125, 2208585676, 6235581786, 5042421748, 8821163063 ####[facility] (DEFAULT)[address] [place] [address] Man Diff? Auto Invalid Interpretation Code [facility] Comment on above: Performed By: #### 1 1655334, 4429291081, 1890592430, 1651839249, 7721138, 7239466474, 7942275854, 6944201875, 4124019920 ####[facility] (DEFAULT)[address] [place] [address] 12953 MCH (RBC) [Entitic mass] 26 pg Normal 24-34 [facility] Comment on above: Performed By: #### 1 1344980, 2261093077, 2459364638, 7854647121, 5087831, 6446377200, 4915596605, 4290560178, 1914015028 ####[facility] (DEFAULT)[address] [place] [address] 49064 MCHC (RBC) [Mass/Vol] 32 g/dL Normal 26-37 [facility] Comment on above: Performed By: #### 1 8350023, 9756159785, 8985458611, 9903937345, 6128100, 2671985013, 9109564563, 8811697722, 1699353385 ####[facility] (DEFAULT)[address] [place], [place] [address] MCV (RBC) [Entitic vol] 82 fL Normal 81-100 [facility] Comment on above: Performed By: #### 1 6112592, 5524247148, 8891578842, 7642526691, 5815298, 5798454109, 9435970691, 5384045554, 9272386466 ####[facility] (DEFAULT)[address] [place] [address] 35115 Platelet 393 x10 Normal 138-427 [facility] Comment on above: Performed By: #### 1 7347195, 1280137545, 2989750052, 1670259683, 0944722, 0954063584, 2570610545, 7400958136, 8790490275 ####[facility] (DEFAULT)[address] [place] [address] 71601 Platelet mean volume (Bld) [Entitic vol] 7.9 fL Normal 6.3-10.2 [facility] Comment on above: Performed By: #### 1 9847350, 8116929674, 9869828833, 8474769416, 7034344, 5819528631, 6174939092, 4620389624, 6590702262 ####[facility] (DEFAULT)[address] [place] [address] 83493 RBC 4.73 x10 Normal 3.70-5.30 [facility] Comment on above: Performed By: #### 1 9229306, 0738690206, 7891016925, 4971046315, 9547264, 8965598158, 2970442033, 1314844254, 8965784117 ####[facility] (DEFAULT)[address] [place] [address] 91145 WBC 6.9 x10 Normal 3.5-10.5 [facility] Comment on above: Performed By: #### 1 8253012, 6800554085, 2055011971, 9519699309, 5813144, 7032340254, 2695529996, 9481661110, 8233359507 ####[facility] (DEFAULT)[address] [place] [address] 09807 ED Clinical Summaryon 2022 ED Clinical Summary [facility] - Emergency Department [address] [place] [address] 83271 ED Clinical Summary PERSON INFORMATION Name: DOUGLAS CORDOVA Age: 28 Years Sex: FEMALE : 1995 MRN: Acct#: Visit Reason: Increased blood sugar; Vomiting; DKA Arrival: 06/12/2023 12:23:19 Discharge: LOS: 000 03:18 Check In: 06/12/2023 12:23:19 Checkout:06/12/2023 15:41:26 Address: [address] [facility] [address] PCP: ARCADIO IGLESIAS PROVIDER INFORMATION Provider Role [...] iver verbalizes understanding of instructions given Comment: [facility] ED Patient Education Noteon 06-12-2023 ED Patient Education Note Education Materials [facility] ED Patient Summaryon 023 ED Patient Summary [facility] - Emergency Department [address] [place] [address] 18305 PATIENT DISCHARGE INSTRUCTIONS Patient Information Name: DOUGLAS CORDOVA Age: 28 Years Date of : 1995 Reason For Visit: Increased blood sugar; Vomiting; DKA Arrival Time: 06/12/2023 12:23:19 Primary Care Physician: ARCADIO IGLESIAS Attending Physician: Maxi Payne MD Comment: Visit Diagnosis: Diagnoses This Visit Diabetic ketoacidosis (E11.10) Increased blood sugar ([id number]) Vomiting ([id number]) The Pharmacy at [facility] is open Friday through Friday from [...] alcohol and/or drug addiction problems; contact the [facility] 20/01 Crisis Hotline -Text [id number] oa [id number]. If you received any narcotics, sedation, or [...] and treatment you received today in the [facility] Emergency Department were for an urgent problem and are not intended as complete care. It is important for you to follow up with a doctor, nurse practitioner, or physician?s bankruptcy assistant for ongoing care. If your symptoms [...] so we can reach you if necessary. [facility] Emergency Department has provided you with a complete list of medications post discharge. Please inform your primary care sales representative/provider of your visit and for further instruction [...] a day. Durable Medical Equipment for Prescription (THREAT STREAM DASH PODS (GEN 4) 5PK) change q [...] NO Flui (more content not included)... Normal [facility] Extra [facility] 06-12-2023 Tube Collected Yes Invalid Interpretation Code [facility] Comment on above: Performed By: #### 1 5439368, 2360478560, 2077105770, 5163701598, 5025621, 3749857575, 2690406145, 7258287526, 9610645987 ####[facility] (DEFAULT)[address] [place] [address] 73821 Extra [facility] 06-12-2023 Tube Collected Yes Invalid Interpretation Code [facility] Comment on above: Performed By: #### 2 346022, 6654614761, 7270296 #### [facility] (DEFAULT) [address] [place] [address] 35268 Hepatic Function Panel [facility] 06-12-2023 Albumin/Globulin [Mass ratio] 1.2 {ratio} Low 1.4-2.6 [facility] Comment on above: Performed By: #### 1 6087958, 4897480508, 1468684887, 1081614379, 4400639, 3729196886, 1138890369, 1219539999, 7460053597 ####[facility] (DEFAULT)[address] [place] [address] 23614 Bili Indirect 2.1 mg/dL High 0.2-0.8 [facility] Comment on above: Performed By: #### 1 1016954, 9566325193, 0717704111, 4518960527, 9760999, 3931016710, 1859311541, 2768180911, 7330670452 ####[facility] (DEFAULT)[address] [place] [address] 56308 Globulin (S) [Mass/Vol] 3.6 g/dL Normal 1.5-4.3 [facility] Comment on above: Performed By: #### 1 8216419, 5107647150, 1258855986, 0402006331, 1545457, 4808174294, 1797213511, 9503413065, 5839567401 ####[facility] (DEFAULT)[address] [place] [address] 29801 Albumin [Mass/Vol] 4.6 g/dL Normal 3.5-5.0 [facility] Comment on above: Performed By: #### 1 1928364, 3352005826, 3088179333, 6413201047, 3456880, 0504954349, 1648137492, 2861672241, 6643062951 ####[facility] (DEFAULT)[address] [place] [address] Alk Phos 90 IU/L Normal 32-91 [facility] Comment on above: Performed By: #### 1 9309903, 4092332118, 8494805539, 7162809912, 7060802, 1659321047, 8968927604, 2217603513, 7842113444 ####[facility] (DEFAULT)[address] [place] [address] ALT [Catalytic activity/Vol] 27.0 U/L Normal 14.0-54.0 [facility] Comment on above: Performed By: #### 1 4134782, 0067596952, 9554876832, 6076266841, 8027421, 9680304950, 6198055997, 3735638551, 6004347834 ####[facility] (DEFAULT)[address] [place] [address] AST [Catalytic activity/Vol] 17 U/L Normal 15-41 [facility] Comment on above: Performed By: #### 1 2704225, 7697773029, 7873277402, 0422381760, 5916249, 8718068677, 6851859882, 8218249668, 2015471387 ####[facility] (DEFAULT)[address] [place] [address] Bili Direct 0.10 mg/dL Normal 0.10-0.50 [facility] Comment on above: Performed By: #### 1 5359166, 0558686370, 4340319071, 6059098532, 4217289, 3904094693, 6276515552, 1794550364, 4218034687 ####[facility] (DEFAULT)[address] [place] [address] 23651 Bili Total 2.2 mg/dL High 0.3-1.2 [facility] Comment on above: Performed By: #### 1 2166884, 8610550813, 5792612647, 5844257673, 8244375, 8018393987, 0969950016, 9422988631, 4101361268 ####[facility] (DEFAULT)[address] [place] [address] 88834 Protein [Mass/Vol] 8.2 g/dL High 6.5-8.1 [facility] Comment on above: Performed By: #### 1 7877084, 0225267096, 8108330016, 2115445195, 3384324, 3304616548, 9118298251, 2667206087, 7558142270 ####[facility] (DEFAULT)[address] [place] [address] 16389 Ketone Serumon 06-12-2023 Ketone Serum Negative Normal Negative [facility] Comment on above: Performed By: #### 7 540926959, 2614584885 #### [facility] (DEFAULT) [address] [place] [address] 91072 Lactic Acidon 06-12-2023 Lactic Acid 9.7 mg/dL Normal 4.5-19.8 [facility] Comment on above: Performed By: #### 2 434880 ####[facility] (DEFAULT)[address] [place] [address] 53525 Lipid Panel Standard, Non-Fa stingon 06-12-2023 Cholesterol [Mass/Vol] 285.0 mg/dL High 66.0-200.0 [facility] Comment on above: Performed By: #### 1 2121437, 3025078811, 1070239235, 4192127597, 7609911, 8336250602, 8972820984, 5184555496, 2097964181 ####[facility] (DEFAULT)[address] [place] [address] 85384 Cholesterol in HDL [Mass/Vol] 43 mg/dL Normal 40-71 [facility] Comment on above: Performed By: #### 1 5915737, 9550059676, 2460556748, 4775612743, 3358366, 4851627639, 9341859185, 3485363236, 7929394782 ####[facility] (DEFAULT)[address] [place] [address] 97831 Cholesterol.total/Choles terol in HDL [Mass ratio] 6.6 {ratio} High 0.0-4.5 [facility] Comment on above: Performed By: #### 1 1781969, 1884196172, 6872446475, 9142846803, 1922847, 6322281011, 6744171610, 8900226122, 7760753777 ####[facility] (DEFAULT)[address] [place] [address] 16526 LDL See Comment Invalid Interpretation Code 1100 [facility] Comment on above: Performed By: #### 1 2675622, 9701288080, 7077209727, 9128064232, 1696002, 3111539845, 5323714388, 4020821576, 7212186961 ####[facility] (DEFAULT)[address] [place] [address] 51791 Triglyceride [Mass/Vol] 855.0 mg/dL High 0.0-150.0 [facility] Comment on above: Performed By: #### 1 2676401, 3222229273, 2456621601, 9093236978, 4619391, 8910652993, 7891261993, 9097164227, 1630669519 ####[facility] (DEFAULT)[address] [place] [address] 58794 VLDL. See Comment2 Invalid Interpretation Code 540 [facility] Comment on above: Performed By: #### 1 4507083, 5312617489, 8127282167, 8085993515, 9840265, 2170280484, 7793476047, 6125843789, 1400689280 ####[facility] (DEFAULT)[address] [place] [address] 53444 Magnesiumon 06-12-2023 Magnesium [Mass/Vol] 1.91 mg/dL Normal 1.80-2.50 [facility] Comment on above: Order Comment: While on Insulin Drip Performed By: #### 2 526946, 5121091214, 6712920 #### [facility] (DEFAULT) [address] [place] [address] 72773 POCT Glucose Levelon 023 Glucose [Mass/Vol] 216 mg/dL High [address] [place] [address] Comment on above: Performed By: #### 4 [id number] ####[facility] (DEFAULT)[address] [place] [address] 94342 Glucose [Mass/Vol] 250 mg/dL High [address] [place] [address] Comment on above: Performed By: #### 4 126968539 ####[facility] (DEFAULT)[address] [place] [address] 90072 Glucose [Mass/Vol] 309 mg/dL High [address] [place] [address] Comment on above: Performed By: #### 7 719070509, 1781162387 #### [facility] (DEFAULT) [address] [place] [address] 44859 Glucose [Mass/Vol] 349 mg/dL High [address] [place] [address] Comment on above: Performed By: #### 2 563803, 4638926650, 4362355 #### [facility] (DEFAULT) [address] [place] [address] 72828 Glucose [Mass/Vol] 447 mg/dL Critically abnormal [address] [place] [address] Comment on above: Performed By: #### 4 [id number] ####[facility] (DEFAULT)[address] [place] [address] 52984 Glucose [Mass/Vol] 520 mg/dL Critically abnormal [address] [place] [address] Comment on above: Performed By: #### 4 [id number] ####[facility] (DEFAULT)[address] [place] [address] 31459 Pharmacy Noteon 06-12-2023 Pharmacy Note The following medications(s) has been reviewed for renal dose adjustment per P &T protocol based on the patient's current creatinine clearance: Medication: Enoxaparin 40mg subq daily Estimated CrCl: 86.6 ml/min _ Action: No change required Changes Made: [Electronically Signed on: 06/12/2023 15:41 EST] Emmanuel Hendrix [Verified on: 06/12/2023 15:41 EST] Emmanuel Hendrix [facility] 06-12-2023 Phosphate [Mass/Vol] 2.6 mg/dL Normal 2.5-4.6 [facility] Comment on above: Performed By: #### 2 793101, [id number], 6690485 #### [facility] (DEFAULT) [address] [place] [address] 53584 Phosphate [Mass/Vol] 4.1 mg/dL Normal 2.5-4.6 [facility] Comment on above: Order Comment: add o n Performed By: #### 2 475461 ####[facility] (DEFAULT)[address] [place] [address] 66635 Test Urine 1on U Preg Negative [facility] Comment on above: Performed By: #### 3 [id number] ####[facility] (DEFAULT)[address] [place] [address] 64260 U Preg Internal Control Pass [facility] Comment on above: Performed By: #### 3 [id number] ####[facility] (DEFAULT)[address] [place] [address] 14165 Progress Note - Nurseon 05-30 Progress Note [...] 06/12/2023 20:04 EST] Michelle Gallegos RN Normal [facility] Rapid HIV.on 06-12-2023 HIV. Negative Normal Negative [facility] Comment on above: Performed By: #### 2 627404, 1824650979, 0881317 #### [facility] (DEFAULT) [address] [place] [address] 23669 Internal Control Pass Normal [facility] Comment on above: Performed By: #### 2 725032, 9688686713, 8188368 #### [facility] (DEFAULT) [address] [place] [address] 30244 TnI HSon 06-12-2023 Troponin I High Sensitivity 87.9 pg/mL Critically abnormal <=15.0 [facility] Comment on above: Result Comment: Crit ical result TNIHS 87.9 pg/mL called to and read back by Elza Gallegos RN at 12-Jun-2023 17:18 by PREET. Performed By: #### 2 639660, 6919496992, 4043426 #### [facility] (DEFAULT) [address] [place] [address] 11812 Troponin I High Sensitivity 109.0 pg/mL Critically abnormal <=15.0 [facility] Comment on above: Result Comment: Crit ical result TNIHS 109.0 pg/mL called to and read back by heath sykes rn at 12-Jun-2023 13:53 by Frank. Performed By: #### 1 4021771, 3859785677, 7216413978, 1567138974, 1754880, 1780627062, 4552294535, 5005164297, 0814504004 ####[facility] (DEFAULT)[address] [place] [address] 59561 Triage Panel 1206-12-2023 Triage Internal Control Pass Normal [facility] Comment on above: Performed By: #### 1 458176800, 3876847036 ####[facility] (DEFAULT)[address] [place] [address] 57485 U Amph Scr Negative [facility] Comment on above: Performed By: #### 1 [id number], [id number] ####[facility] (DEFAULT)[address] [place] [address] 07519 U Landy Scr Negative [facility] Comment on above: Performed By: #### 1 111857319, [id number] ####[facility] (DEFAULT)[address] [place] [address] 84749 U Benzodia Scr Negative [facility] Comment on above: Performed By: #### 1 757326834, [id number] ####[facility] (DEFAULT)[address] [place] [address] 41506 U Cannab Scrn Negative [facility] Comment on above: Performed By: #### 1 927203259, [id number] ####[facility] (DEFAULT)[address] [place] [address] 16636 U Cocaine Scr Negative [facility] Comment on above: Performed By: #### 1 736796639, [id number] ####[facility] (DEFAULT)[address] [place] [address] 98828 U Methadone Scr Negative [facility] Comment on above: Performed By: #### 1 358062929, [id number] ####[facility] (DEFAULT)[address] [place] [address] 69028 U Methamp Scrn Negative [facility] Comment on above: Performed By: #### 1 997586903, 0269579300 ####[facility] (DEFAULT)[address] [place] [address] 06110 U Opiate Scr Negative [facility] Comment on above: Performed By: #### 1 519489115, [id number] ####[facility] (DEFAULT)[address] [place] [address] U Oxycod Scr Negative Normal [facility] Comment on above: Performed By: #### 1 [id number], 9849923446 ####[facility] (DEFAULT)[address] [place] [address] 02959 U Phencyclidine Scr Negative Normal [facility] Comment on above: Performed By: #### 1 908496943, 8435055157 ####[facility] (DEFAULT)[address] [place] [address] 72455 U Tricyclic Antidepress Scr Negative Normal [facility] Comment on above: Result Comment: Resu [...] PPX Propoxyphene (Norpropoxyphene): 300 ng/mL THC Cannabinoids (55-zhy-1-carboxy- -THC): 50 ng/mL TCA Tricyclic-Antidepressants (Desipramine): 300 ng/mL Performed By: #### 1 612321031, [id number] ####[facility] (DEFAULT)[address] [place] [address] 32648 UA Standardon 06-12-2023 Breakpoint UA Normal [facility] Comment on above: Performed By: #### 1 604278078, [id number] ####[facility] (DEFAULT)[address] [place] [address] Color (U) Yellow Normal [facility] Comment on above: Performed By: #### 1 [id number], 2846596642 ####[facility] (DEFAULT)[address] [place] [address] Glucose (U) [Mass/Vol] mg/dL Normal [facility] Comment on above: Performed By: #### 1 614194637, [id number] ####[facility] (DEFAULT)[address] [place] [address] Ketones Ql (U) >=80 Normal [facility] Comment on above: Performed By: #### 1 096156005, [id number] ####[facility] (DEFAULT)[address] [place] [address] UA Bilirubin Negative Normal [facility] Comment on above: Performed By: #### 1 132351078, 4888730859 ####[facility] (DEFAULT)[address] [place] [address] 89226 UA Blood Negative Normal NEGATIVE [facility] Comment on above: Performed By: #### 1 977520496, [id number] ####[facility] (DEFAULT)[address] [place] [address] UA Clarity CLEAR Normal CLEAR [facility] Comment on above: Performed By: #### 1 364451637, [id number] ####[facility] (DEFAULT)[address] [place] [address] 35177 UA Leuk Est Negative Normal NEGATIVE [facility] Comment on above: Performed By: #### 1 [id number], [id number] ####[facility] (DEFAULT)[address] [place] [address] 07530 UA Nitrite Negative Normal NEGATIVE [facility] Comment on above: Performed By: #### 1 918177540, [id number] ####[facility] (DEFAULT)[address] [place] [address] 93188 UA pH 5.5 Normal 5-8 [facility] Comment on above: Performed By: #### 1 117271172, [id number] ####[facility] (DEFAULT)[address] [place] [address] 62901 UA Protein Negative Normal NEGATIVE [facility] Comment on above: Performed By: #### 1 [id number], [id number] ####[facility] (DEFAULT)[address] [place] [address] 21493 UA Spec Grav 1.020 Normal 1.001-1.035 [facility] Comment on above: Performed By: #### 1 [id number], [id number] ####[facility] (DEFAULT)[address] [place] [address] 46217 UA Urobilinogen 0.2 mg/dL Normal 0.2-1.0 [facility] Comment on above: Performed By: #### 1 [id number], [id number] ####[facility] (DEFAULT)[address] [place] [address] 01275 Urine Source Clean Catch Normal [facility] Comment on above: Performed By: #### 1 510234508, [id number] ####[facility] (DEFAULT)[address] [place] [address] 89359 Venous pHon 06-12-2023 pH Denis 7.37 Normal 7.37-7.44 [facility] Comment on above: Performed By: #### 1 [id number] ####[facility] (DEFAULT)[address] [place] [id number] XR Chest 1 View Frontalon XR Chest 1 View Frontal CLINICAL HISTORY : Chest pain. TECHNIQUE: One view of the chest COMPARISON: 03/17/2023. RESULT: No focal consolidation. No pleural effusion. No pneumothorax. Normal cardiomediastinal silhouette. No acute osseous findings. IMPRESSION: No acute radiographic abnormality. Final Signed (Electronic Signature): Benton Minor MD 06/12/23 1:52 pm Technologist: Celena DEAL [facility] Coding Summaryon 06-09-2023 Coding Summary HTMLBase 64 XhwhyaisHQx6jBf+PGhl YWQ+PV1WOHXcJ50ylYSi gF3vR5SRCLcHOpspZEDF ISnIUlFtriGrNX9ouPQm ZXJu IC8+UQ2aYFDfJcubwFRh h2D4cVL9J23sll9iJIsv dAH8TPGjZeEdurvkn1bm jMb6PMvcBepnKfFu VIPacW43HKM9vX13Yj54 dBImbYOdk0ckkOe7XtTp SRKaDLT7dNdpSQyrh5Mq ARCnE14foXAzv6S7 IGNvbGxhcHNlOyBlbXB0 oK9zFCvrrehka7pgpvyr Dee5cq33gGKgy6X3lXG1 X6ZoeyU9MZLlhXOp JcdzwODLsN3niafgv3tg xdmeEgTyFGNkIEe8TVi9 CTGfkIniVqQpEL18EWV1 BDRtlnSrA6RbCKUe vQugBxM6i1U4Iz5II3NO QihsG1CIJDLZHSpytOO+ UL64ll18K6QfJwceRel0 VARdPBP6wDP1tD5d SJJkIDvsc9G7sTI6N5Gv ziIrsr7gv6glKBYaCYeo G07cvGBam6T7PCVkyEH9 BOLsyDawVwTmmN52 Oyc+UOFgzVrfw4RnZdbj v4gqt1dffEm0FfbxALVu xlFvwAkiIJE9j2TrUi0f PGBbnEJ5qID9oA5z DcIpOpQ5BVgoP767RvId wIJgUasrX18oD6NizMG+ LVWzWfk2PVVdpPbmBC1f Z3XtMKAghospxTSt vAcqBV7aRTOqlbgkKPJa dW9kJDXkE7m5FcLtHqB0 QWkvU4GxMEWtjiruZv65 aH7rUlJaHcQ8DHxg P0SxqxD5HLJfiMZfPVxy ZGU8Y13wo5S3BUVyTKZn NCU0tVZ9bS2vqGltivgw bGVmdDsgdmVydGlj VFkpMCbaC898MAHlvKen PkNvZGluZyBEYXRlOiAg MTIvMTEvMjAyMzwvdGQ+ WOCrSPA3lHuwUSCc tUBrPRgoGy8ihMofxObb QR6uSWBdbxeiXTPqoR0a EKKwrZWlsQriWB0eJXUo cbpww590RbBmJMM8 YWWtkSKdD8GuxP7tZyHi THFdHUIgI0MjnCHxYQwl P504MXqfJpW3EORyjnSi Y7JlHAMwvLzxCjU2 y4S4Mu3Ub2IwpmmoR4Zo gBBvMrZdXoinJRy9G7Rs PjwvdHI+KN79FPDdGD46 MNc1MKQ1oVzxRTvb JRPlR9AgwQ0oBsGqTMYn ZGRkOyc+PHRhYmxlIHdp ZHRoPScxMDAlJyBzdHls KP9gLw2nDBWpIGOb jGeveJBpItGxz4smKAYq JNqaRW8dlIfvV4XfwCV9 NVEna7h5Zs70Z78pX6Pu dXA+EUUkuHW8iKK3 tV1zKgEjLcF3HLhdM449 HbIllHBhZuqsj4cgy0dd nLs1BdE9IJSvkxUvuSpe FJQ7p2UmEl97N37q IHdpZHRoPSIxNSUiIHZh vRhecr0kxQ4tYt7+PGNv pFM0rLQ3uN4bMtXfZbL7 JFveK313RdJbaZCo Brwcs6rtc6higRa4BuXm ANZrfcXjwWdeLSC9o8Nl Ym35K5YnmHqsq0MyQit6 zi65nDQuj6S5iUZ0 J0PxDGLedqnmzGBwgZhz OD4uTHNohztiCCGczR6r JGAgB9v4AbRuOmO3LKto Q2BwngI6IOUzkZXb RWItiEBMiU1mqkltg9sw laguXlXvXZWnPLj0LFa6 GBYbdAkzXkCbKDN8VxW9 PKU7aSZctQ2vlFdx vakitQ5uIzw+FAS1zCQq qAQWQC2iClijlRV+PHRk QMH5oXmhKJnfZUZrrF3c NYCkP1u1AtKxNpO3 VGycG5VwlnP4HWAkuJLk JOOhnWCKsN3flklah7om ugkuYaYgYBFvLJz2HXg8 LWFsaWduOiBsZWZ0 WbQ6AKZ6bRLzzW3skMox bwakyS8iOhy+QmlydGgg TLW7JGe3E1PlJkr6EYHs dZgxUH1gtVLqFOtl Ac9iiUnzxWavRX1jPSZj ytnhd210MxNtj9htVKVt yNJfJFzdZRJ8B35tv0F5 XEKfVSOuDXG4iNB7 wV4znUwvnhjdlBEydCeu qtHagMcmJCmdRXtnR950 QAFhuKraAfVcEHl4U0Bp Xlv4GUIudNeiHW4u vMNjFHexSy7gsSyzhFeh XZ3fGQWqbjoon908EpHf n5lqUJWtsLYcMHzlXNB2 I52qs9N1FHKoBEPh EXF4bNX6vQ8ohZvirsja bGVmdDsgdmVydGljYWwt BDabC723AKHpmQhlCeFk tWm7U9ZsKql8TESj yHfcVC4poVQuXAakKe8v iQpmgPwdSF8fNOZqdevi i215JeEis1vqJOZbnCXd IQvqRTD0M34sh7R8 EPSzWEQsCXV0oBT0lM9j bGlnbjogbGVmdDsgdmVy yXrxNUniFRuoQ283DMUq cDsnPlBhdGllbnQg TBfeFDw4B0HoIchfrQK+ LG50PKDtPA71vMKuzFKt p0lseBn6TnKvHQGoVOT8 dDcsBWqjx0TqDEOw N97diIQoh6U8OCTrwHuj iCCuOhCduYA0zI1gLBfr uszjb2yffrxyHwndv5uv lq20aJ81P75xFBdo ZHRoPSIzMCUiIHZhbGln wn8eoF1aUt8+PGNvbCB3 nBY5uO1hWVDzCjF7OCic V633HlOanXXfMatj m9xzp2vxxOn3JqV8FJWm bgFthMncRYD7x2HgNf93 F56wEKfpDFKzMEWeMWAy BCRorZpzmz3poM8s Ii8+KGFeaKB2lKR3tP9y ZbNjKtZ9ZXyoB528MsZz oQIbLtiiI94iK5LsbAD+ PBMgLtc2IWPoqMib FK3wbMAsJTqgDu0bTSJ3 LjBaOyPfYCgcP9GyVNGs zmllumwvbHR7BQWvIIDy lD42Af7rmGrsCUKj qUSGjK7hgbjmo8ybnhsr LdWnXAJxOSy3AUo5PFJp vIiiGiLkAMV3YgB5BSX1 aXZnwC6liBlndowm dJ8tE0NtOSQjliffLh28 hP4qMeSlVpX4GRcuNly+ IX6WYSURNBMELOiHNNTQ GQRWDIA2T3UbWez3 NEMriQofFL9paTPoDVdr Ln0epEaziXshIA4uTGDc rfnkPNEqdS1sKGXugTRd sVuxJW0rKHUugpww x251ZeEhHUJ9TLUhqVTk U8MdfI5aNsBfQVNbJFEb R8KhlLIaSLtwO541NCea YeQ3NAHgioXnJ8Et MVEwhOrsUzT0q4S0Jz6z Wj4cPC7sBXtrRM07LG71 aIEyz9Y2lVT1Y1LfBMCz gvpfnwsozDA2OFSz MZSnoJ87iCJvFFdaHi3c h3Z0k339UMIpZDHkjZ26 Gn0lxCdcDLZyvLEBkH4d bzrwm5dlotgfKkGl WWNqJCb2LLc1JSQvdEja EbCmSIP6EsC3EMQ0nZDx rO4qdTktugarzC6pAdi+ PpFiFCWuuuH1H3Tb Agw2BOFghXdfES9vcILx QBncKt0ocIfgzRxrPA4v DIZkpzfnVKRngY3dKMJo aMSbbEojCW4mMFJh cpvhg536KgCwSGK1DOHg wEToC1SyaQ4jXkFdTBDu TYGzF3KxxOExAVjmB328 IZrlFwP8IHSzfxQh O5RkUAEhcIoyMzE4d4V0 Qq8KRU2ZXQH5X6IsQya5 QULxsMuvHX3jnCJxUNzo Ii3axXtbaUsnWK3y BKRqgbleMUSxmW9eCFKs dOVawMghQR9vUUKvpkku y716RrGiDTT8FMValLGp N0DqxJ0zHhByEQYs ZKZpS8BdlXBcLLyfA080 NNgsJsF9RRCofkUqA1Bs EAOaeQxlNkB7m3X2Za1X hSMbO3OgA0i6S4Wn PjwvdHI+CU30BCLnUT41 lPOoaCZxm0xqsYj4MwEd FOEyZBD1hMmaTRjqv0Db WYEoM11joIGlp5V0 IGNvbGxhcHNlOyBlbXB0 iI7jJMmgkknbg0hubalj Vsvwg9fzqt89rK24L61h IHdpZHRoPSIzMCUi COMjxXgasx9hoE8hTz1+ IJSzrRP7lBK9kO7bLkAt RkK7QBozV637WtUijCSo Gmnjt8qlm3zxhCg5 IjIwJSIgdmFsaWduPSJ0 w2LsCx41S59vSAntFRPd KEGuQKSjSKNmnRejhh7m iJ3yTy7+UJ8ul0zo yd55jV90tCV+PHRkIHN0 bLqpYFyoYYKggA2lFWyw RyT5ZEJpWgXngA64aPPd SNatQc2hmFaikHae XL3aNYErxxbiu512RbIy t7pqMTWusBLyUQnfOAC4 A68kb7G9SLIcMEVoCEK2 mFO5aW6fhEspouca bGVmdDsgdmVydGljYWwt FHauA764CBZhrOfuWqFf jGWsQ9tdtpQHHN2oHnsm dGQ+QZLlBEE3dBpe DJvfWSTfmE9mOHNwV8s9 UtPgDcU6JDrgQ8KrunC7 YAVgiBIjKNRxwZDGkP9a spzqa2akolmqUiCb YKYaMTg1BKu0VACenVni UnSlJGI5FeA3LRF1rOUj gJ7xbGnkywetoX8sEod+ RklOOjwvdGQ+PHRk NTI9bZxkDPgrOAZfzB7e JISkO9v1ReIfNvB3PFwh S5AtyxU2FDVocJTqEGAs eOIQfE9athauh6ej aomiMtZlWWXaILj8PWs0 IGJqyJqeCkJrXHI4XxC7 FRA0lEJjlY4daBtkxopv dB5kMoi+TVJOOjwv dGQ+LYNjYGW2iThpVCun RYJfbS6xCNQrH9y5OpDf UuB5HMdcV3GtplX2HNIk xPHkGPOfhGEQvB6v wmryu3koxmwsAgWwFPQf SWc3MCq8GILzeDszAlEt IWY4KvO7CJU1sWGcbO9w vWxbxtpctZ3eNue+ GBO5IKN9QF83FM08Z8Xt PjwvdGFibGU+PHRhYmxl IHdpZHRoPScxMDAlJyBz rNbxVE4dDo5pSLHw LWN (more content not included)... [facility] Coding Summary HTMLBase 64 UxndyyjaQHj9lYf+PGhl YWQ+RO6ISKJlZ41wiWSn uM1xF0JJJOiDPoioLWVD HNlOUwFpshOgVH3hmSJe ZXJu IC8+PU8zUKYgBesodYRp s4D6gPP7N91qpl7rVUae uBQ3SZZqVdGqwruld9bo eWe3QKjeXgtgNiDa SNKktF61YZN0oG35Ao55 vVYdbTVrt7qjcCu0ElBd MFYoWKI5kVpyYRrop0Uj PKLhM74kqULpz1E0 IGNvbGxhcHNlOyBlbXB0 jO5mZXkshdjfy4zbwkkz Rhs3dx58dEZef6M1sDD5 Z7JrnmM9ALMhtUZc FbksnGXIlC9rkxcdt6re crifIjMzJGDoNSm9XGp5 ZOEtcDoxMoZdIH19VXR9 LFSnjuPtU0MlGUWu nNwyPvM7r3B8Kh2OO4RC YeyyQ2CVJVEWSPjjqTO+ GK23ji36X6FtUzplUlt5 VVLgCRQ7sSD1dI0g JMTtZMorp9K6pET0C0Kk yvVxdn5qe6viIWUhQVay O17laSDnf9N4BXIjtEB3 ILWmqDjwGfDsnN38 Oyc+ATPzuHgiz4KyIjld g0zfl6qyzDq9XhabIQOu wmFusEurBMO5q2DwIi6k JMDuaAF0xNJ2iQ8e PwSvEhI3GQxaE699RtYf uJQuVqznV79nA5HboFO+ DHGiOth7BHWkmLdhSU7y D8VaHLTwryrkhVFz wMswLA5sIQVhbygdRHVs fS2wLGWjZ8e6SwFpIyH0 SFppP3OnLTQwvtryOr09 eV1bUfDxVaI0WVmp O3UtpjI8LYZsyYHlIMni VKW5Q29xp3F5YJUlUHUx CII6aEF6gR5bpHflfsqp bGVmdDsgdmVydGlj PAztMAewE541CFCpjLtj PkNvZGluZyBEYXRlOiAg MTIvMTEvMjAyMzwvdGQ+ YHGlEZY3iToiRMJp yGFwADzlTc9kdOjwvEtk OV2xTQVvxnhkUMKxwK3t CPXapDJzlLplUN9xZNIr bwipr819TfRkEFS8 HDIvzRGrJ7AemB4cKpYy PQQpYRUhH9NtjXXrJLov W203LKltEtV6AOPxqjBg R2LwLUScsLosQcM7 l9V1Ne9Gj9YuwmdsN9Rl gHQeXqBkZvpsHBh9R4Wg PjwvdHI+WR60GARdQH66 ACu5AZR9xCzfJCgv XBMnP4IbpX4aUhRoNWLl ZGRkOyc+PHRhYmxlIHdp ZHRoPScxMDAlJyBzdHls EV8yDo4eUHZrVZEo xFmyrLRcChTcq5gkQKOk FVipGC9mvSjrA7NasJZ0 MSQyf1h9Lj47I53yJ4Yc dXA+SQTszEE6cXZ0 kY7bEdOqSzZ7YIboB212 RcHfvFFpIhqvi5ojw8gr uHg7SiO4USLvrqEqfXwv RKN5y4KePn27Y18s IHdpZHRoPSIxNSUiIHZh oMjwzt1njU2aDw2+PGNv eJJ7jIP4wM1rSjVjGtA6 AJiiM926UmYfcDLb Iwycp5tpw6aywIx1QhLb EMYbnpJsqBgvUAZ4z5Kw Ha09I9JgbKfng2OlNbg5 zl78bVTwn6U8jQX8 I0GmNGObaiyjgZWkyTmx EM2oXMZoprevVSOxwD4a BFXlK7n4RoPdRtW9UZto F7ZrstJ1VVIqjVLp AFWjgOHSeR1lngrmx2nb jxxaDwUaRULoRGy9AMa0 LIRohDtiVjOzMZT5OwE5 PCN0hKKmwB9fwRkc eucrjC7jEun+CES7sJUp fFHDGV6fUkfdtGU+PHRk MON2fFptHLcpUBNusC9z OEInM7t5ZcZbXkS6 QVgyH8TgrtY4YWEalIZk XPExrWHGnJ5oqsrcq9il zckrIfAmQVGyTJf3IQd2 LWFsaWduOiBsZWZ0 VuN4ASL4dRXlkB0zkMdr ffevbN7bNak+QmlydGgg NJO5KEv8K5IuKfh0KEMh gKjfTM6hbGLnANyj Lf5ffPetbCzwEW6dSCQb pjlvf560CuLdi0rwRILm rLBzKIrfNEW8M84ga0P4 AQTqDTEoWGD8tTH9 pX8tqXlqfqokoNGwuUtv rrEqxYnwYLruAZryS182 OIIraLpjJfFmZRd2W3Xt Hub7XRDfeTssGW2o cBZdNUdzVi9wtIoscNrk FR9bMLKqszakl724PdZo x9wlOUFulGHbCZvpCJW8 H33cx7C3RKQyECQr VFO7oNB7lS7sbJtfkczw bGVmdDsgdmVydGljYWwt LQjaE489IUXiqBolZiOa cNn0T6IaWyg7DQFb cHygCU5iuMKqBLxgDw7t jSnqfEkmGE1hJYObvquk m475BiJkp5anQHXftGLf ZJfgIXU3X83qk6J4 KFTcWIQmBAR5zST7kY9x bGlnbjogbGVmdDsgdmVy vBoiOGanFDkuE936YGIi cDsnPlBhdGllbnQg QDrjODn5V0SzAgnfcWE+ MQ94AXLsIN54cDNfnFCz r1tcqPv2YqChEOTbJBD4 cSwaYHlis3SfVXEi Q73vzKYxq8U6OARqwPgx rMFkCxLlzHA0mX0dBRvc bxpxu5zrzedzYzlad7rg gf70yG63W89gQNcq ZHRoPSIzMCUiIHZhbGln et6lkC6zBn5+PGNvbCB3 cDK2tK4iGXErQfC6GXrd V957UkJkeJDhRvpo f7lng6bjkKz3OvB8IEWr owSsqIgdHGX5g9FqLe34 F32lXOqfATIuBZXtNTKs CLAmjAuwqy4xgX7x Ii8+HVKdbST6lNO2wU7t PhCgJdK5QStcA488UuTq bOJgAnyzP15zI4HdxFP+ BQYcOgu7PLItaUgb GF0fsLMkBQubRv9bPCG1 CjEhJbJqEFsaE7ZuASHa mtxfzpjceUB1WVFxAKHn sZ42Yo9avTuoVIUf cAYAfZ2opxsio9nnsqfa StHlRVSdKDm5PMu8FTDd iWmiDbAkKYQ6PdM8AOC8 oBWviA7etGixuybh dV4wR4FfPLRqciqvFp14 hK8cJmMbJjK7EQdzKuv+ BE7NQDRXVMHXPWbKVHZX ADKGSHV4L8DuBze9 MXLxtLkgNX2ayXCoPYte Hh6beEcejVzeWH8iEXEp geiwCUMwpA1iVNNbqRCt fJbzOZ9wZCAjpwoj p634QpDmWPU4VJCqhUCa G3WlzQ5xZbDzZJXwZYAr R8SkgPNdAAamF455NHup UgX9XAXwshYgF6Lh XJMurDazEpK2h2H5Qw7s Ku2yWP4dXZbmPI97VJ48 iHHhp0F0vRS2X7AeWRMo qvsurbetfPR1NPCm EZZuoZ78uNQdDWweRr3t d3O3q509IEYgYTCjpJ33 Yn0hdFycPOQpsMHStS6o rzipd3vloharUcWg HIIxJRm7PNi3HHJglEdz DxAyERL8IcM3NUW0oQSy oD1mfBtkykwrdM1qNvc+ NnZrLOFxmxJ6A3Mz Ver7EBWzdAbgES9boVBz JPewOk2nbOawnWnjDE2w GCGwtvroEZAtbP0uMQWz jIYvpMstZO6aKLCf stzjq349DiVeLHK0VDYv hPYmH8KadR7mItBaNCYz BZWiN5SjyRCaVIckQ825 VCalCnM0YFOxjfFu H2WfUYUccHolHlN9r8I8 Qp5CMC5BLLW6C7BaAfn0 NGFcxIaoLL6kdIFhDKhw Ns0xpEksoNqaIM8f PIKhwuxkZMOwyP8kKQZn uKVvcIclUZ8rFZTnxgmi o606QxSbFNI7MCMrnCDn T1YlpA1aQlEnSCMq CTZjK0CttLFkUTrwV971 VSlnGmX9VFXrzzGyQ5Bf GOBmuSpaApG1z9X6Cs7I dISeO5QyB3r7X6Vx PjwvdHI+DL99WNHeUW79 cVAzoQJnw8vqcQa4VhCo HEXtNSH6hIfiRIdkw3La IPFnY89kkKYnr9I8 IGNvbGxhcHNlOyBlbXB0 nS9fCEwdavtvx1plnjnu Yybar8vowq66yJ43T96d IHdpZHRoPSIzMCUi LRDlbZwqui1ikO6eRx5+ MMEyuTI2jFL5uC0rLjPm FwA8VMlvN075VmKbyNIc Enqii0xev0auuTw6 IjIwJSIgdmFsaWduPSJ0 y3YpXk54Z23cHWvnORAv ZBPbQOSaSXUcmEmzdx6q yE6wUq1+TM8sg7ty bh42iQ04lWW+PHRkIHN0 oKqgXHanADQnqB7uTCzp EmC4DBGeAuZyvD94gPMw QDpeVi0phFqhfGdf VX2sJFRhiiylc614TuSh f2ymKIZecRWeOWlwOWS0 Q46ey0G4EGPmOYGkLHH1 iYK0dX8lvPnfbfke bGVmdDsgdmVydGljYWwt RVybB587CHTetJuzCtPu vCJbT4lhtqTATV7rWciq dGQ+PIFbWLQ1tPty ARaaBFPlpY6nMUIxF0h7 VgMrBrS8HBsqZ2JwuvJ9 WKPcyQRnKLOhpHWOoR7k wdded7dciajcQsKn TMVzZUs3EYp7JZUnmOyb HuEgYPJ2TcJ8SFT5qJUi qB1ckSizrfqgqP8vPlb+ RklOOjwvdGQ+PHRk DYD0dVkhPLypCRRgsD6w TYDvC2u2TzQkToK5PPba U9KtfwA3VAJxhZCzEHZh uVCRqC6skbolh2eh kityOtSjVYUaMRa3DSb9 CKBskQprQfAwWUG3IvE6 WGY0nOZzjF7bjLbvfjlq mS0wZnt+TVJOOjwv dGQ+WXOyAFN3xLlhLGsu ZOYvwE8bSUOoA1a2FxPc CdX9TGglB9HoysT0RKDr jXXcDOQegHIWdH4b xxeyi9jnvynhCgIiWNOn VKb1XNd2NWGqlHnaEiVq FJY5VcZ7KVA7xHHqhQ3c gYuizlkwpH6cIhq+ RYN2HVF7FY06JG49U9Pr PjwvdGFibGU+PHRhYmxl IHdpZHRoPScxMDAlJyBz gIybVM2rHx3gKSTb LWN (more content not included)... [facility] Coding Queryon 06-05-2023 Coding Query Should this [...] DO [Transcribed on: 06/05/2023 16:33 EST] RR [facility] .Auto Diff 105-30-2023 Auto Irwin % 6 % Normal 07-11 [facility] Comment on above: Performed By: #### 1 [id number], [id number] ####[facility] (DEFAULT)[address] [place] [address] Baso Abs# 0.1 x10 Normal 0.0-0.2 [facility] Comment on above: Performed By: #### 1 [id number] ####[facility] (DEFAULT)[address] [place], [place] [id number] Basophils/100 WBC (Bld) 1.3 % Normal 0.2-2.0 [facility] Comment on above: Performed By: #### 1 [id number] ####[facility] (DEFAULT)[address] [place] [address] Eos Abs# 0.0 x10 Normal 0.0-0.4 [facility] Comment on above: Performed By: #### 1 [id number], [id number] ####[facility] (DEFAULT)[address] [place] [address] Eosinophils/100 WBC (Bld) 0.4 % Low 0.9-4.0 [facility] Comment on above: Performed By: #### 1 [id number], [id number] ####[facility] (DEFAULT)[address] [place] [address] Lymph Abs# 1.4 x10 Normal 1.3-2.9 [facility] Comment on above: Performed By: #### 1 [id number], [id number], [id number] ####[facility] (DEFAULT)[address] [place] [address] Lymphocytes/100 WBC (Bld) 25 % Normal 14-48 [facility] Comment on above: Performed By: #### 1 [id number], [id number] ####[facility] (DEFAULT)[address] [place] [address] Irwin Abs# 0.4 x10 Normal 0.0-0.8 [facility] Comment on above: Performed By: #### 1 [id number], [id number], [id number] ####[facility] (DEFAULT)[address] [place] [address] Neut Abs# 3.9 x10 Normal 1.5-9.2 [facility] Comment on above: Performed By: #### 1 [id number], [id number], [id number] ####[facility] (DEFAULT)[address] [place] [address] 62059 Neutrophils/100 WBC (Bld) 68 % Normal 44-88 [facility] Comment on above: Performed By: #### 1 [id number], 0926909, 2093746, [id number] ####[facility] (DEFAULT)[address] [place] [address] [facility] Standardon 05-30-2023 eGFR Non AA >60 Invalid Interpretation Code [facility] Comment on above: Performed By: #### 2 [id number], [id number], [id number] #### [facility] (DEFAULT) [address] [place] [address] 95414 eGFR AA >60 Invalid Interpretation Code [facility] Comment on above: Performed By: #### 2 [id number], [id number], [id number] #### [facility] (DEFAULT) [address] [place] [address] 11888 Anion gap [Moles/Vol] 13.3 mmol/L Normal 5.0-19.0 [facility] Comment on above: Performed By: #### 2 170650, [id number], [id number] #### [facility] (DEFAULT) [address] [place] [address] 14331 Calcium [Mass/Vol] 9.1 mg/dL Normal 8.9-10.3 [facility] Comment on above: Performed By: #### 2 558697, [id number], [id number] #### [facility] (DEFAULT) [address] [place] [address] 39056 Chloride [Moles/Vol] 102 mmol/L Normal 101-111 [facility] Comment on above: Performed By: #### 2 807897, [id number], [id number] #### [facility] (DEFAULT) [address] [place] [address] 36137 CO2 [Moles/Vol] 25 mmol/L Normal 21-32 [facility] Comment on above: Performed By: #### 2 609615, [id number], [id number] #### [facility] (DEFAULT) [address] [place] [address] 08502 Creatinine [Mass/Vol] 0.55 mg/dL Low 0.60-1.30 [facility] Comment on above: Performed By: #### 2 052598, [id number], 8050866 #### [facility] (DEFAULT) [address] [place] [address] 18646 Glucose [Mass/Vol] 293.0 mg/dL High 74.0-118.0 [facility] Comment on above: Performed By: #### 2 710677, [id number], 8580690 #### [facility] (DEFAULT) [address] [place] [address] 88186 Osmolality 283 mOsm/L Invalid Interpretation Code [facility] Comment on above: Performed By: #### 2 642605, [id number], 8460746 #### [facility] (DEFAULT) [address] [place] [address] 49467 Potassium [Moles/Vol] 3.3 mmol/L Low 3.6-5.1 [facility] Comment on above: Result Comment: IV T herapy Performed By: #### 2 174730, [id number], [id number] #### [facility] (DEFAULT) [address] [place] [address] 64945 Sodium [Moles/Vol] 137.0 mmol/L Normal 136.0-144.0 [facility] Comment on above: Performed By: #### 2 545044, [id number], 5365643 #### [facility] (DEFAULT) [address] [place] [address] 29937 Urea nitrogen [Mass/Vol] 8 mg/dL Normal 8-26 [facility] Comment on above: Performed By: #### 2 301398, [id number], 9762856 #### [facility] (DEFAULT) [address] [place] [address] 07381 Urea nitrogen/Creatinine [Mass ratio] 14.5 mg/mg Normal 4.6-16.2 [facility] Comment on above: Performed By: #### 2 452438, [id number], [id number] #### [facility] (DEFAULT) [address] [place] [address] 76347 CBC w/ Auto Diffon 3 Erythrocyte distribution width (RBC) [Ratio] 15.1 % High 11.5-15.0 [facility] Comment on above: Performed By: #### 1 3904786, 6533910, 8587923, [id number] ####[facility] (DEFAULT)[address] [place] [address] Hematocrit (Bld) [Volume fraction] 38.8 % Normal 33.7-40.4 [facility] Comment on above: Performed By: #### 1 8325302, 1814455, 2525509, [id number] ####[facility] (DEFAULT)[address] [place] [address] Hemoglobin (Bld) [Mass/Vol] 12.5 g/dL Normal 11.3-15.9 [facility] Comment on above: Performed By: #### 1 5005302, 9611266, 9535878, [id number] ####[facility] (DEFAULT)[address] [place] [address] Man Diff? Auto Invalid Interpretation Code [facility] Comment on above: Performed By: #### 1 4915407, 1474475, 2524584, [id number] ####[facility] (DEFAULT)[address] [place] [address] MCH (RBC) [Entitic mass] 26 pg Normal 24-34 [facility] Comment on above: Performed By: #### 1 7335630, 5692538, 9011083, [id number] ####[facility] (DEFAULT)[address] [place] [address] MCHC (RBC) [Mass/Vol] 32 g/dL Normal 26-37 [facility] Comment on above: Performed By: #### 1 5483946, 5848874, 6126545, [id number] ####[facility] (DEFAULT)[address] [place] [address] MCV (RBC) [Entitic vol] 80 fL Low 81-100 [facility] Comment on above: Performed By: #### 1 0802718, 9604342, 8216914, [id number] ####[facility] (DEFAULT)[address] [place] [address] Platelet 255 x10 Normal 138-427 [facility] Comment on above: Performed By: #### 1 8552823, 4329404, 1014352, [id number] ####[facility] (DEFAULT)[address] [place] [address] Platelet mean volume (Bld) [Entitic vol] 7.9 fL Normal 6.3-10.2 [facility] Comment on above: Performed By: #### 1 9595341, 8421928, 2425602, [id number] ####[facility] (DEFAULT)[address] [place] [address] RBC 4.84 x10 Normal 3.70-5.30 [facility] Comment on above: Performed By: #### 1 3938261, 8222517, 9115905, [id number] ####[facility] (DEFAULT)[address] [place] [address] WBC 5.8 x10 Normal 3.5-10.5 [facility] Comment on above: Performed By: #### 1 9556684, 5625735, 0360247, [id number] ####[facility] (DEFAULT)[address] [place] [address] CMP Standardon 05-30-2023 Breakpoint Chem Normal [facility] Comment on above: Performed By: #### 1 9391052, 8299995, 7819043, [id number] ####[facility] (DEFAULT)[address] [place] [address] eGFR Non AA >60 Invalid Interpretation Code [facility] Comment on above: Performed By: #### 1 6863915, 3478504, 2822270, [id number] ####[facility] (DEFAULT)[address] [place] [address] 47254 eGFR AA >60 Invalid Interpretation Code [facility] Comment on above: Performed By: #### 1 6578715, 0635885, 0442057, [id number] ####[facility] (DEFAULT)[address] [place] [address] Albumin [Mass/Vol] 4.3 g/dL Normal 3.5-5.0 [facility] Comment on above: Performed By: #### 1 4754605, 5575094, 3979947, [id number] ####[facility] (DEFAULT)[address] [place] [address] Albumin/Globulin [Mass ratio] 1.2 {ratio} Low 1.4-2.6 [facility] Comment on above: Performed By: #### 1 9915038, 9859780, 2225161, [id number] ####[facility] (DEFAULT)[address] [place] [address] Alk Phos 80 IU/L Normal 32-91 [facility] Comment on above: Performed By: #### 1 8500694, 0801137, 7168782, [id number] ####[facility] (DEFAULT)[address] [place] [address] ALT [Catalytic activity/Vol] 23.0 U/L Normal 14.0-54.0 [facility] Comment on above: Performed By: #### 1 5923798, 7936786, 4971862, [id number] ####[facility] (DEFAULT)[address] [place] [address] Anion gap [Moles/Vol] 14.3 mmol/L Normal 5.0-19.0 [facility] Comment on above: Performed By: #### 1 9302671, 8067486, 6919759, [id number] ####[facility] (DEFAULT)[address] [place] [address] AST [Catalytic activity/Vol] 17 U/L Normal 15-41 [facility] Comment on above: Performed By: #### 1 0458342, 4018793, 9637271, [id number] ####[facility] (DEFAULT)[address] [place] [address] Bili Total 1.1 mg/dL Normal 0.3-1.2 [facility] Comment on above: Performed By: #### 1 7977575, 4347650, 3479195, [id number] ####[facility] (DEFAULT)[address] [place] [address] 82202 Calcium [Mass/Vol] 9.0 mg/dL Normal 8.9-10.3 [facility] Comment on above: Performed By: #### 1 5569539, 5074855, 9531579, [id number] ####[facility] (DEFAULT)[address] [place] [address] 21630 Chloride [Moles/Vol] 94 mmol/L Low 101-111 [facility] Comment on above: Performed By: #### 1 8294242, 1116201, 8725978, [id number] ####[facility] (DEFAULT)[address] [place] [address] 28261 CO2 [Moles/Vol] 25 mmol/L Normal 21-32 [facility] Comment on above: Performed By: #### 1 2749411, 6082510, 4169155, [id number] ####[facility] (DEFAULT)[address] [place] [address] 48438 Creatinine [Mass/Vol] 0.73 mg/dL Normal 0.60-1.30 [facility] Comment on above: Performed By: #### 1 7280643, 9804583, 8610615, [id number] ####[facility] (DEFAULT)[address] [place] [address] 77981 Globulin (S) [Mass/Vol] 3.5 g/dL Normal 1.5-4.3 [facility] Comment on above: Performed By: #### 1 3395697, 8163430, 8289218, [id number] ####[facility] (DEFAULT)[address] [place] [address] 97888 Glucose [Mass/Vol] 784.0 mg/dL Critically abnormal 74.0-118.0 [facility] Comment on above: Result Comment: Crit ical result GLU 784 mg/dL called to and read back by funeral car chauffeurnew hollingsworth at 29-May-2023 23:28 by erica. Performed By: #### 1 5599886, 5760288, 7038642, [id number] ####[facility] (DEFAULT)[address] [place] [address] 10947 Osmolality 295 mOsm/L Invalid Interpretation Code [facility] Comment on above: Performed By: #### 1 7702565, 1844724, 9093018, [id number] ####[facility] (DEFAULT)[address] [place] [address] 68744 Potassium [Moles/Vol] 4.3 mmol/L Normal 3.6-5.1 [facility] Comment on above: Performed By: #### 1 4430566, 3956327, 9439687, [id number] ####[facility] (DEFAULT)[address] [place] [address] 43411 Protein [Mass/Vol] 7.8 g/dL Normal 6.5-8.1 [facility] Comment on above: Performed By: #### 1 [id number], [id number], [id number], [id number] ####[facility] (DEFAULT)[address] [place] [address] 07344 Sodium [Moles/Vol] 129.0 mmol/L Low 136.0-144.0 [facility] Comment on above: Performed By: #### 1 [id number], [id number] ####[facility] (DEFAULT)[address] [place] [address] 84991 Urea nitrogen [Mass/Vol] 8 mg/dL Normal 8-26 [facility] Comment on above: Performed By: #### 1 [id number], [id number], [id number] ####[facility] (DEFAULT)[address] [place] [address] 84891 Urea nitrogen/Creatinine [Mass ratio] 10.9 mg/mg Normal 4.6-16.2 [facility] Comment on above: Performed By: #### 1 [id number], [id number], [id number] ####[facility] (DEFAULT)[address] [place] [address] 59874 ED Clinical Summaryon 2022 ED Clinical Summary [facility] - Emergency Department [address] [place] [address] 15622 ED Clinical Summary PERSON INFORMATION Name: DOUGLAS CORDOVA Age: 27 Years Sex: FEMALE : 1995 MRN: Acct#: Visit Reason: Hyperglycemia; Hyperglycemia; HIGH BLOOD SUGAR Arrival: 05/29/2023 22:26:11 Discharge: 05/30/2023 02:16:00 LOS: 000 03:50 Check In: 05/29/2023 22:26:11 Checkout:05/30/2023 02:16:00 Address: [address] [facility] [address] PCP: ARCADIO IGLESIAS PROVIDER INFORMATION Provider Role [...] penicillin PHYSICIAN DOCUMENTATION DISCHARGE INFORMATION: Discharge Disposition: Detention/Care Home Discharge Location: [facility] PATIENT EDUCATION INFORMATION Instructions: Hyperglycemia, Wwpm-zu-[id number] Follow-Up: With: Address: When: Return to Emergency Department In 1 day 05/30/2023 Comments: home resume your normal insulin therapy tomorrow you are welcomed to return as needed You are medically cleared for confinement. T H ALEX< ER PHYSICIAN< H Hamilton Shah, 29 MAY 2023, 2255 hours DIAGNOSIS: Hyperglycemia without ketosis Patient Understands: Yes - Patient/family/careg iver verbalizes understanding of instructions given Comment: Sam [facility] ED Note - Physicianon 2022 ED Note - Physician Patient: DOUGLAS CORDOVA Age: 27 years Sex: FEMALE : 1995 Associated Diagnoses: Hyperglycemia without ketosis Author: Linn Johnson DO Basic Information Time seen: Date & time 05/29/2023 22:31:00, Easy ambulation past the fish bowl, in no distress, in presence of uniform patrol police officer. History source: Patient. Arrival mode: Private vehicle, walking. History limitation: None. History of Present Illness The patient presents with This patient presents to the emergency room with an elevated blood sugar, she is a known diabetic, she is to be a resident in the local alf facility, she has not been using her [...] be started on the morning of the alf. Impression and Plan Diagnosis Hyperglycemia without ketosis (TIP77-DM R73.9, Discharge, Medical) Plan Condition: Improved. Disposition: Discharged: time 05/30/2023 01:55:00. Patient was given the following educational materials: Hyperglycemia, Xpub-qs-Kbxt. Follow up with: ; Return to Emergency [...] 05/30/2023 02:57 EST] Linn Johnson DO Normal [facility] ED Patient Summaryon 023 ED Patient Summary [facility] - Emergency Department [address] [place] [address] 43452 PATIENT DISCHARGE INSTRUCTIONS Patient Information Name: DOUGLAS CORDOVA Age: 27 Years Date of : 1995 Reason For Visit: Hyperglycemia; Hyperglycemia; HIGH BLOOD SUGAR Arrival Time: 05/29/2023 22:26:11 Primary Care Physician: ARCADIO IGLESIAS Attending Physician: Linn Johnson DO Comment: Visit Diagnosis: Diagnoses This Visit Hyperglycemia ([id number]- [id number]) Hyperglycemia ([id number]- [id number]) Hyperglycemia without ketosis (R73.9) The Pharmacy at [facility] is open Friday through Friday from [...] alcohol and/or drug addiction problems; contact the [facility] 20/01 Crisis Hotline -Text 4VNTX bs [phone]. If you received any narcotics, sedation, or [...] and treatment you received today in the [facility] Emergency Department were for an urgent problem and are not intended as complete care. It is important for you to follow up with a doctor, nurse practitioner, or physician?s bankruptcy assistant for ongoing care. If your symptoms [...] so we can reach you if necessary. [facility] Emergency Department has provided you with a complete list of medications post discharge. Please inform your primary care sales representative/provider of your visit and for further instruction [...] a day. Durable Medical Equipment for Prescription (THREAT STREAM DASH PODS (GEN 4) 5PK) change q [...] EDT teste (more content not included)... Normal [facility] Ketone Serumon 05-30-2023 Ketone Serum Small Normal Negative [facility] Comment on above: Performed By: #### 1 [id number], [id number], [id number], [id number] ####[facility] (DEFAULT)[address] [place] [address] 33225 Outside Recordson 05-30-2023 Outside Records [id number]. [id number] Normal [facility] POCT Glucose Levelon 023 Glucose [Mass/Vol] 288 mg/dL High [address] [place] [address] Comment on above: Performed By: #### 4 [id number] ####[facility] (DEFAULT)[address] [place] [address] 01908 Glucose [Mass/Vol] 278 mg/dL High [address] [place] [address] Comment on above: Performed By: #### 7 [id number] #### [facility] (DEFAULT) [address] [place] [address] 10284 Glucose [Mass/Vol] 389 mg/dL High [address] [place] [address] Comment on above: Performed By: #### 4 [id number] ####[facility] (DEFAULT)[address] [place] [address] 87520 Glucose [Mass/Vol] 590 mg/dL Critically abnormal [address] [place] [address] Comment on above: Performed By: #### 2 [id number], [id number] #### [facility] (DEFAULT) [address] [place] [address] 67582 Glucose, POC >600 Critically abnormal [address] [place] [address] Comment on above: Result Comment: read high Performed By: #### 2 [id number], [id number] #### [facility] (DEFAULT) [address] [place] [address] 95576 Test Urine 1on U Preg Negative [facility] Comment on above: Performed By: #### 3 [id number] ####[facility] (DEFAULT)[address] [place] [address] U Preg Internal Control Pass Normal [facility] Comment on above: Performed By: #### 3 [id number] ####[facility] (DEFAULT)[address] [place] [address] Progress Note - Nurseon - Progress Note - Nurse PT and [employer] deputy advised of discharge instructions-advised to check glucose every 2 hours until stable then to follow alf protocol-may return at any time, educated on s/s of hypoglycemia to watch for. [place] provided with medical clearance form. Pt assisted back into personal clothing and cuffed by officer for custody. Pt provided with education and resources for transitional housing, Shama Carlee crandon, and [facility] hope line. Pt counseled on addiction and [...] on: 05/30/2023 02:13 EST] Shellie Turner RN [facility] Telemetry Stripson 3 Telemetry Strips [id number] .[id number] [facility] Coding Summaryon 03-27-2023 [facility] KxnjvyopMMn4iKe+PGhl YWQ+KK8AJUMcK63ogSGn sL5hB3JBOEhTXxphZBCT WCwUYxRbvsWhTC7efIDg ZXJu IC8+MO5cSKVeQcriaHUv m0C6zVJ2F23cyc2vANaf gXF8ZOIuNhIkjbilv0ak nVq7YWlrCjyeMaHt AIIumY28ACR8zZ65Yr99 jWWsgDDdm4ysmBv9ReHx AJKlYGE8yFpqLUmdx9Ct GVVoX19ocSMpz7D8 IGNvbGxhcHNlOyBlbXB0 xM6xRQbwhvfvw0ietrpn Cpq7df83kCHdj8Z9gHO0 Y7UopsK0XQVndXVd LevvxVLFgF6phjiof7ef ijfzXpOkPEEpJJv4SLn1 TRNlyGgiVsJkHJ05AHO3 LZVvwrGyG4BwQSOm gFxqJrU0u3K1Ii6VN1WT YsqdX3KVEKVMBHqoyTG+ IH34lx83C7GnTuqpVlc3 SWTlVQL0eEB3jJ7a PFUkJAtrl1A4gDV6F4Ly vnBfja2ot4isRTFzXXje B74gxDAsk2Y0XTLjcJS4 EOFudGbyRnYgtH10 Oyc+JYSxhKuoh0ZpVwki s0klr7afkHt8FayvBOLo krSqbZkvFAO9u7WqAy6u YUCytZC8oTU7kL4e EbPzOaU2MCqmN248KnFh hSPmNxcxM73cD9DnmPH+ AIFjPhf4GGCvlLwmIA5p N5OnWIDyvjwdpTYx jUydQJ3bXJEoibgoNPHn oB5yEYQtB8e6SsMeOvO3 FThbR2KbVGZfccphOl23 qT0hRrWwRyX3TYze R5AabfX6YVHgbOAoYLei NPV3B13ow9X1KEGaHNBd EMV9fOY1mL2olSrslvzb bGVmdDsgdmVydGlj YPszVCvhL312NJCypJig PkNvZGluZyBEYXRlOiAg MDkvMjgvMjAyMzwvdGQ+ TGNpLXC1oParXSJv tSTqVInmPh9gxVsdzHzz FL8iYDEnnycvOIMqnB2w FNKiiTIcaYrmYK6nDRGb uuwcq125BjUtTKA5 BAEnoTMdF4OeqW0rLaFc XMNvJWQjD8HfdIJqIYey T265WEhjAaF8ZFQgxxDf E2DaRLUtjSalIhS1 g2V5Ug0Dz1UmbmslB9Pl dGWcLwVbJpiyIKp2I0Rt PjwvdHI+ZE73RYJkEK21 IId6YXW6oItyCMxk SUWzK7FqpW8fUiDmXJLs ZGRkOyc+PHRhYmxlIHdp ZHRoPScxMDAlJyBzdHls TX0uXb2vMKYsBODk cEwyuTNbJaEne5xdMFKh HXxgLS1ccHwlB3SrmPB8 NYRjp1s6Zt57W12pN3Lh dXA+LCNdlQX9vJS8 uX0iQbRdMiS0QPudA999 BnVquFXoTyabj3erh8pr uDw0OrS4AEHjoyFusFcf JRN4j1VeYk73P19j IHdpZHRoPSIxNSUiIHZh oZmglh5oiU3vEz7+PGNv sLD0wIS8uR6pBaUnRqV7 KHbmG642RyDqwXWg Tuzls8bub3ffpGo6JbNr RKOakjDqkRtsBXK3u8Jo Oi37U1FvrFayw1DpTxv5 ij59hRGdn7B2lTG5 U5XlPIZxrfacpXXalTkr GW4tXRFcoltaTCOfwV9p SMWmS5u6UvPyTfT6NYnm V4BlrcE1AFBzeSAj RTIuqDXDmT3kbuffm0lf urnwXwEtNVEsIXc3YDy6 WXIhqUlwUmYlXFN8VsZ6 OBI6uZWtiO5wwSab zviyfI9xOak+SAU4xPNp aETHOV7cWpfoqAI+PHRk IDU7sKfeGOwlBGLcpY2a LOVrF4e5OaPuDkO7 YPmcG3ZlqyS2SRIzmHHy IEUuqUVVxP8fuqepd9wu xqryKfWyRAJcYMe8FCo6 LWFsaWduOiBsZWZ0 OhT4NVP6xCDwlC9yqDtm buhjkS2eRia+QmlydGgg KNS2SXr0K6WrTqe0ESBh vRcoLT4vbKJgWQrv Cd5gxVmioLsyAD4sVAKr fzdro687QkIcr8zaFCFu oFZoHPncQZD1Y60za9B4 PRIgQOMbMQO1cAY8 rH9quSjbpnvxkBVxkAan mdNjkEfiWIqdJZfpT057 XAGimChtUsEkPUg2J2Sx Onn9KAIjsNzgUW5m uJVqNWovXk4mdDfhoRjy QE8rDHJrlwkgw256NbRk a6ewMETtaVFgOTjmJQS6 P36eu1X6OMLuDPQc NHZ8oFY3sQ1xfLciride bGVmdDsgdmVydGljYWwt TLriU293DOPqpMdtUhZa rUe6M8DtBbl9WARv cFkyGZ6mwCShHMfzUw5t jQbujGrcHO6tATFkxggp v322WiEtc1grTGSwlAXd RIslAQH1F38cz1Y1 BHKnZCVgBIM3dTO3mT5h bGlnbjogbGVmdDsgdmVy sHppZPulWRvqZ929UCOe cDsnPlBhdGllbnQg XFtfRQk9M1NmSgdmzUI+ UF91NXRsGO38yPAqvHTa b2qrnPh3MgZyNGInZTB4 nHxaNJhzp2XdRDHo L99naLYsj0C3GJTllLhw mHYnXuHsoID5tH3jBZcu hsfgz7jjhigfWycob3bw ok09oU49X59aCMml ZHRoPSIzMCUiIHZhbGln qp0toB6vYo3+PGNvbCB3 mQR3pB3mVRQaBpH7PKxi U743HhXtsAExNxio j1lwm6dpjDr2WuZ2SHUc sdYtqJqeNVN8l9VmPm34 I27yPCicOLHtZSAwLLUu WLNtaFipco0jeU1j Ii8+IGJcxAS2oIV5dA2k UmJqZkT5FOjkC711GsBq qGKpJknyW78qL1NouYJ+ TDQnWjd5SUVtpKro GF6moLCnJVcrGi3sODA1 FlWhJfAtEPxvB7CrIRUu pxomtionnFE3GZMrLMXj nS96Ez1dxVndWNHn fXRSiZ6iohgvj7qenvhk TfOjGKXhIEq5MRb1ITJu hVzeCmWpXBY4BzS2UUY9 gHWmnZ7llPjjqjzu mV1rB2ClNTAyappbTa04 yP8nViBkAdQ6JYlsWyq+ GU8AXGOGKISEDXtADGHA TN63JI84aXUlh9Z3 wBC1S8KxICCtejvtilmo zNK9ZCYkGNJgnB45xCDd GAsdRc1sb2A6x056JBQd YSTknX12Ko7dxZtq BXCghYNJaT8pyfnlz3xw zcdbIgLnIKAdAKc6HYw4 HYMpyPmzDsCdBJV8AfA0 GZZ7sRTfgR7ooMdo npekoN2qFug+MTIvMDUv UBf3AnnynLL+PHRkIHN0 zFbeWQssGBOjzN3pFXHr O5l6UjTwXyP9LScp R4RuWVIkdqkaTr71vC2m KbZhBbX0HRrkU9VijnA6 NLLusKMtJJgeQMB0O38g r5J5VRSgITPeCEX7 xYE2tE9woIixicrouZYe dDsgdmVydGljYWwtYWxp C716DIHpfVtmNsD2HLlk JVEzKF83ZY01yAQd d9O4wAD3Y8NvPQJcypmy vwrjmAT5IBWiUNKdwT88 mSCtBXxfRh3su7N2h940 LXTwJSOvnZ03Gd0m aNigLERyyBJXwN0hfnxl q0mrfkccOyXtESKgWVm7 BYj8ZPHnnIvsQlZfHII1 GlG1LJB1rPUrhO7i qPyjodkrcC0fMpa+RkVN EGrFJP68FX68qAVzy2U6 nAB8N2AiWABfltfktdtf rLZ6BMPgLVLzrG24 bLOeNYklYo7fz2F3v285 BBInJIRnfX63Vt9pnOaa TGIznJQOgD5hogwso4pe cjogIzAwMDAwMDt0 FGb9GRLejCgfDpUtJFN0 LuF4XAG8iPGzpB5roQsj dprtfW1oGmv+DX8lreuo vkQ6QE45JS89Q8Xk PjwvdGFibGU+PHRhYmxl IHdpZHRoPScxMDAlJyBz gOklLH5eDt0aBZNfYILg eJjmkCUlTcGza3qq XAIbQPkySA5evPrxF4Nd lUB6PIVkn1i3Bz06W80g M8JciSK+QYGrxKG6wQK3 lE6cMlHgRmQ9NKmi V245XvMshHQaIuhjc9ck j6nrpDt3VsOrPLTirmRh oAweAPY8i3ClYy39K16k IHdpZHRoPSIyMCUi EBUqsEgewr3kmN7oZu1+ ENZsiMW1nHJ4hF1rSkLg ZiL4QZdmE288NiCivVOn NdgrG21jG2OwqNX+ KUGaHhp3BQHfsWtkGM6h vGIjCFkkPt2cRRJ9ZaOt LhFtSDapU4HpORJuuvsa qdwscGO8WWAvJZNq nP11Vw3amWdxZs8uWEKv TNA3RNEkxIAvO2GroO4d GfFtKCKaWPCtC0UybNFp NBhjH456NZfwVuB4 UYYjpnPiO9QyFEJtgBbk VyJ4y4W6Ws9ZwDhjqZYi WW3vYxIuGIs1K0LhKfi0 SBQqvPprPX2wpULo USkgAl1vuIsbzNewKH8k HRCccnlim573FePfh3tu RXJdfCYyZZxoTUP5Q42w r9I4WVLlTMTxPSK8 sOK3jB8ijJgibdifbITp dDsgdmVydGljYWwtYWxp B222XBVxbTuhAoKSLge2 W6IbZmh8VIUecRih ZP2hxZCiWQhjVp4myByb lHcbER9aQTPnsackl383 OtVek7zjLKYapZQhTLjp IDF6G02im6G5PRPi ODRmNHC6zYG9gS6hzEnu bjogbGVmdDsgdmVydGlj NWcfSGsgS387QHWfbUnk At9JVlo3X7PkIqw1 MIIveTxkNA1mbOUiMOig Ic7ksOypyUccJP1kMEHt emwqp169LiBku7ozPOQk lZLgGIvyMNH5W88s a0F7ZSAnROWmVNI3fYC0 fG5phAndxacfkEMebDen gaSouLceAJpvEAdbE465 IHRvcDsnPlBheWVy OjwvdGQ+GT30wd98X6Yj SwxqJnt2TCJrIOL6gKF7 wK7zXSVoTFukx3E5aCA7 Q2ApiqOtgt0ne1hm YXB (more content not included)... [facility] Coding Summaryon 03-25-2023 Coding Summary HTMLBase 64 VihwpirdOTy5nQg+PGhl YWQ+VY9BJDJiJ53jnTCy mR5hD7KZVAeWIsfnUFWV TLuQErTcvbFdQW5ruSNm ZXJu IC8+KX8wMUTbZloobYNj d6A3yVE5U80zya0nVBbi oQM2ZNFjMpIydyagg5ec xTw6QUqgWqxqMhKs DPUfbL81OUE4mC25Bq13 mAQaeMFro2cfuAh5XhPt ELIyVAL4eFnsNFbof9Gc XCEvM99gqZZjk7R3 IGNvbGxhcHNlOyBlbXB0 xG1uKYnryrdbq6kouzwn Laj7fr05cKFku5O0lER8 A4AntfV4KRQxpOKx XtargJZCqZ7pbhrxa0vy cdifKpNsBAFrRSt4RKm5 MZBczQenGxLzAR59WFG8 GPShnbVmA1NzEFUu eQhrOyP2u8G5Nl1DB5AI NygzS1EYBVLZLQuytGE+ VZ46ll69O3UzCrysJsb5 RJSkCPR1vXJ7kY8u CREsAWgar0M6lGP8U8Od ugGacr5ny7crIHEuTBsz T60frQAxi3H1TNFmcTP4 JTXwiLivNqAulT85 Oyc+DCUjyNmse4KtLyoq j0vtu1fbkGj2ZgrcDYOd gtEuxAtbAQT8q4ZyZg6x RXZxuKQ4iKR7sK6w AiShEjT2EEwyH796LtHh wOGsUnpkT80wW3WejLV+ ZLPfZyl3WPBtxWhcJX4f I2BeQTJttlpzwUZn vNerJE6kOVVdlbxzAMNl eU6bGTCiA6c6WwReXoX0 QCpmO8VsQLQpdubeEo66 mS0vSaGhRkA3KQpp X8RxeoN8KDLitEGcLGma YLT8S53yq1H3ISLtCNXi QCT8uME1tJ9dpZymqxlh bGVmdDsgdmVydGlj IDfnCUzsT022GTKbeFnf PkNvZGluZyBEYXRlOiAg MDkvMjYvMjAyMzwvdGQ+ MLQyDXY4nBflJVKm oLLlRTrdIi5fyKiniGww YV6nZVBgjffkHAJbsG0n YAJboZFxiBjdTF5pVAEh cwrfj510QcOzKYE8 YYSfdQVlL6TtzV3pYlJz XTMyWWMlU5NfoBToNPsn I504HTayFlD7VMHlnbIc Y4AfFNQuqTwmBgO2 i8C8Cy7Ci4YklwhsG0Nu vTBqIcBpYezoNXm3F7Bc PjwvdHI+YO24KJWdSH31 QUh6DHP7dMpdINwk JFMvO7PztX4yLiCnPEZz ZGRkOyc+PHRhYmxlIHdp ZHRoPScxMDAlJyBzdHls UZ1wKd7kGFCoTUJc xGurlMLuRlLyf7jkWWLj CMfqSL8oxBexT2UldAC5 JBBxc0d7Fr67H16gE9Ew dXA+KBJqqSL4rHD3 cQ3hUqDhOoL6TIzxN700 JhPjtAEfYezas2pjl3uy nKy9EvS4BGBagaEysOjr WVM6z7ZsFv84A61m IHdpZHRoPSIxNSUiIHZh qFcvbk4qeX0oWw7+PGNv nTO6iPR9zG3eOgMaHoD7 FCqiO803KcSwkXEo Iunvw1nsy3otmKb4IkDx VNQyivGleTztSSR6x3Bg Kx27Q0ThhVpff2FqSnj8 ln22mCDwj1I9bUU5 Z2VwDHQsyrakhVLkzCek EV2jFHFfyxzaKNEemX2y LNVlR0z1OsMiEoO8SBge H8GqroU6SBKxzLAc TFTdaERGtR8jtwgfn2vc kyfhUbGgRIHjETo7WTe1 EOMxgGhmIgCbEIJ3UiS7 KYX5iKZipP7toXfq pckjrH5lXeb+LIH7kQTw gTFFYF4sUxawpHX+PHRk HEY8cSvzPStpBRPlgU7b ZPEqN7a2CdHdPzA7 LTowH3WlimX0YNSlhICw UGDtfLVNlB2ycsazf1is pdtbOdHkMJOmQDg4BSg4 LWFsaWduOiBsZWZ0 VwU8AKO2zRCuuI5dkAxn kobrbY9yJst+QmlydGgg HQU6MRq0S4DcUyh3VBKt hDkvHG6wpSMjMOvf Ux8rwSfnlCgvAR0mYKGl yxaac869XbLoc8uxAFFw zQIaTSlkIWJ8Y26br6L1 BJCvIMCpJER1mSK2 qB5clQkiyoaqjEPfuAjl rgLimQgaNAcmLEzjC217 RDLmfNehEkWdNGq1U5Hi Qiy0IERwaIcjVF6n oXEkCSylCd8xuGmlqCbg LG0tJBOahfkog309JpYo i9qxJFBewDHlTHhzBSR0 A99hb9B1WOPkRIId IFS8hKD1nW1mvMdhgqxr bGVmdDsgdmVydGljYWwt UEkhV973JPVmkFygJwYf cGy9X9PtAqr6XDZw yFqmJT6igCMgJDyxHh0x yHbleYivUJ1oSYNcbsux c554EjRfy5kqOTUtaAEr YMrbXYE7X77cn7S6 UQTzJBEhUVS2zAR8jF6h bGlnbjogbGVmdDsgdmVy bSlcQFwjFSdwD063BXAa cDsnPlBhdGllbnQg KMpiVKb7T7YkRrdysER+ AV81WWPxRG03wHYceXLo m7uszDr7AmLqAECrLXC8 ySwbKDqci3HnLBUd G02hgQPuc4B2NSZgkFwl uGZlEcQrvUF5uZ3fETns ldtcm5rinhacNpnok5aq sr60kT72K60oRQhr ZHRoPSIzMCUiIHZhbGln hq3kfP4eGn5+PGNvbCB3 zZM2qY2bCFSkQoY0MBxc W787ZcFeqAFuSngw r3oqj6lkrEr8PwU2DVGx nmHfyKchREW7f7GrQs47 K65oIAtlAVOqEZGnBLWq ABJjeQedlc6ieN6r Ii8+FGRfkOH8bHE9iZ9v TsNeWsD7KBeqE157PtHv gKQrKapqC09uC7AqpMU+ AWGaLhn3SFApiBia RC4amKUmMTldLl0rVHP2 HvPvOpCwFSbaK9BySNMl yetghzxkwVC4LHLmVQQm yV96Rv4naYmbYCQb uZWSxR4ptdmxk3oetahb BfPjWGXjZPh8GZk2UADt fEczQeRkZIN3WgX6OKQ9 iHPvkH8akLddljbl bL7aT2XxRKVuxmbxBf94 kC4hWcYiXeW1XGadSks+ JN9ZRHJYLAQHVBuKLSST UN60NB37hRKtv2T1 yEC0I2SjGIAtfsudnkwe gYZ3OSVhVELfqY95rUPi ZLllRj3ic5Q1i006KSNw MRQceL19Gj9ezBcf NDWnjNSPmM8tzjpyy8ej xtxaMqBqBFVkKGr6JSh4 FBOmhVwwOfTkWOW6HpM0 VDQ3aMFarX1fdSjg xgatuV3hLup+MTIvMDUv OLo4TutdpCP+PHRkIHN0 dAqjNSuoZDDkeF0qRLWv X7t9KsUcSwV4DPqh T5SdIGFkogkyIc17hF5k KiHuCgJ1DDwoJ2KfahU5 GDJdrXVbCPlgNMM4O80z m9N6PCIcYNHpFGJ3 fDE5iQ2pbMiawftgcEFo dDsgdmVydGljYWwtYWxp Y856LUGvyEnoAiR0QUbe YPUaEG08KP19vDLw d9U7gVZ6P8OgTMGakphr smmeoEV0DOBxDGOjnL04 tNFuYEdaKk8tl0A1h047 TULuRBUiqA60Js5s rLbhLMOzjUKJuZ9rfhch l6vzwqptLzCkEOEtIMt4 OTq7KSShcAdzJjLqNUR5 CmA2YWJ1pNPpjB2c uJsslctryU5fFfa+RkVN MKvQSZ06JM63kWSxm4Z2 fZK6R4JtTLLeirtxvcfc rGQ8BRYcLRMxbM50 uYLuBVrxKl3wu4D4n136 DKWfKXDqzY06Gp0avIzb JCWatOWGkS3bnycwb1ew cjogIzAwMDAwMDt0 BLp3DCIrrCwbZoFqXDL7 QxX5GLL5eNYtpS1qzTpm kisfuW6eDgo+S7CrKUN3 GNMaf475F2AoGyor dHI+DL28ORNtCF69kOAn yDSdr4jsiXn1YhPjNBDh YMF0fZvgUYxhw6BuHQOk R81mzMRru8G7RVSa dRmrcRAlSnMmvXL9uZ3w ZGfybubat0tvdagxJsir u1zgti70vA69X40qHCqh ZHRoPSIzMCUiIHZh vXbnip1ooL5lHt7+PGNv eWW8uEK4mP2xEdSfFkM7 EKahA582YaWqzVXgZwys l7tfh5ufsDw3YoXr QBJlpvPckZaxQPE2j9Ae Ts59Q02lXYnhWVVwXWSs GQKoOUOhjRzysu9xqW8g Ii8+MF8yw6gtxd61 tL26mDS+BAAyZNY3vGpx AKssNIBehF6gTLtiPiR8 USXpVsYsrF61yUKtJCpl Gc3rdDntwZozBI9b AFNkvlzqg760WoUcs5xw SPUqtVBzNVvsKRA6W64n q7T7AVKpAEKkRQD4dSO4 gV4naPuprsyftPOn dDsgdmVydGljYWwtYWxp O906OAIxjZkfRxCtqLKt V0ifaeUFZH8aLunkrSY+ LXOjWBT2dTvjECiq TFXfdL3rGOVaB5n1FtLr TkW3EEhoL8NsfoA2UHHt cOYfOJWloKXQgY6raemr a8psfcceLaScKZBl MKw5ZPh4NLCunDzlIpBf WWK3EaW6AEK8aLQeaE5d hWnnvoksjC7hXwp+RklO OjwvdGQ+PHRkIHN0 lPzqNPirSNQxoI9dNIFh O8w6TjGjBdU3PLvoS7If xxP0GJYfpUKuFJOrhOCB mL8hlpkht9wzbwzm EgWeOCBbDYw5OIb2UEHc uFznXbIiTUE5WeE8QXN6 sCFqfT5gaZwdocotjL8c Oyc+TVJOOjwvdGQ+ YCKjYOD4xAtqFAggBDZs gH9gTKLkB9c7SeKyXxG7 KErcX2QgwuB6KRLkvUDj UKNxgTQJoZ8rioqw b0lamxvwBdDvQDNjQLu4 RYv2FKJiyMwqXoQmGTR5 HpW6IGY6tBOawF9hqLym hbnouB2wRmz+UGF5 FGO0ME90NU18F9XzRvul dGFibGU+PHRhYmxlIHdp ZHRoPScxMDAlJyBzdHls AV5pAq8zJQIiHYYt bGx (more content not included)... Normal [facility] C Bloodon 03-23-2023 C Blood No growth at 5 Days Normal [facility] Comment on above: Performed By: #### 2 [id number] #### [facility] (DEFAULT) [address] [place] [address] Cult,Bloodon 03-23-2023 Cult,Blood Specimen Description .BLOOD Special Requests R HAND 2ML Culture NO GROWTH 5 DAYS Report Status FINAL 03/23/2023 [facility] Comment on above: Performed By: #### Jose EJEC, HEPXA #### [facility] [address] [place], [place] [id number] Residential Life Director: Norman Blake MD Cult,Blood Specimen Description .BLOOD Special Requests L HAND 2ML Culture NO GROWTH 5 DAYS Report Status FINAL 03/23/2023 [facility] Comment on above: Performed By: #### Jam RODAS IOCAL #### [employer] [address] [place] [id number] Residential Life Director: Norman Blake MD Basic Metab w/rfx MGon 03-20 Potassium [Moles/Vol] 3.3 mmol/L Low 3.7-5.3 [facility] Comment on above: Performed By: #### Jam RODAS IOCAL #### [facility] [address] [place] [address] [id number] Residential Life Director: Norman Blake MD Anion gap [Moles/Vol] 8 mmol/L Low 9-17 [facility] Comment on above: Performed By: #### Jam RODAS IOCAL #### [facility] [employer] [address] [place] [id number] Residential Life Director: Norman Blake MD Calcium [Mass/Vol] 7.3 mg/dL Low 8.6-10.4 [facility] Comment on above: Performed By: #### Jam RODAS IOCAL #### [facility] [employer] [address] [place] [id number] Residential Life Director: Norman Blake MD Chloride [Moles/Vol] 100 mmol/L Normal 98-107 [facility] Comment on above: Performed By: #### Jam RODAS IOCAL #### [facility] [employer] [address] [place] [address] Residential Life Director: Norman Blake MD CO2 [Moles/Vol] 28 mmol/L Normal 20-31 [facility] Comment on above: Performed By: #### Jam RODAS IOCAL #### [facility] [employer] [address] [place] [address] Residential Life Director: Norman Blake MD Creatinine [Mass/Vol] 0.4 mg/dL Low 0.5-0.9 [facility] Comment on above: Performed By: #### Jam RODAS IOCAL #### [facility] [employer] [address] [place] [address] Residential Life Director: Norman Blake MD GFR/1.73 sq M.predicted among non-blacks MDRD (S/P/Bld) [Vol rate/Area] mL/min/{1.73_m2} Normal >60 [facility] Comment on above: Result Comment: These results [...] secretion. Performed By: #### IRAIDA DUBOISCAL #### [facility] [employer] [address] [place] [phone] Residential Life Director: Norman Blake MD Glucose [Mass/Vol] 226 mg/dL High 70-99 [facility] Comment on above: Performed By: #### Jam RODAS IOCAL #### [facility] [address] [place] [address] Residential Life Director: Norman Blake MD Sodium [Moles/Vol] 136 mmol/L Normal 135-144 [facility] Comment on above: Performed By: #### Jam RODAS IOCAL #### [facility] [address] [place] [phone] Residential Life Director: Norman Blake MD Urea nitrogen [Mass/Vol] 4 mg/dL Low 6-20 [facility] Comment on above: Performed By: #### IRAIDA DUBOISCAL #### [facility] [employer] [address] [place] [address] Residential Life Director: Norman Blake MD CBC with Diffon 03-20-2023 Abs. Basophil <0.03 Normal 0.00-0.20 [facility] Comment on above: Performed By: #### Jose WELCH HEPXA #### [facility] [employer] [address] [place] [id number] Residential Life Director: Norman Blake MD Abs. Eosinophil <0.03 Normal 0.00-0.44 [facility] Comment on above: Performed By: #### Jose EJANNA, HEPXA #### [facility] [employer] [address] [place] [phone] Residential Life Director: Norman Blake MD Abs.Imm.Granulocyte <0.03 Normal 0.00-0.30 [facility] Comment on above: Performed By: #### R EJEC, HEPXA #### [address] [address] Residential Life Director: Norman Blake MD Abs.Neutrophil (Seg) 2.46 k/uL Normal 1.50-8.10 [facility] Comment on above: Performed By: #### R EJEC, HEPXA #### [address] [address] Residential Life Director: Norman Blake MD Basophils/100 WBC (Bld) 0 % Normal 0-2 [facility] Comment on above: Performed By: #### R EJEC, HEPXA #### [address] [address] Residential Life Director: Norman Blake MD Eosinophils/100 WBC (Bld) 0 % Low 1-4 [facility] Comment on above: Performed By: #### R EJEC, HEPXA #### [address] [address] Residential Life Director: Norman Blake MD Erythrocyte distribution width (RBC) [Ratio] 14.7 % High 11.8-14.4 [facility] Comment on above: Performed By: #### R EJEC, HEPXA #### [address] [address] Residential Life Director: Norman Blake MD Hematocrit (Bld) [Volume fraction] 30.8 % Low 36.3-47.1 [facility] Comment on above: Performed By: #### R EJEC, HEPXA #### [address] [address] Residential Life Director: Norman Blake MD Hemoglobin (Bld) [Mass/Vol] 9.8 g/dL Low 11.9-15.1 [facility] Comment on above: Performed By: #### R EJEC, HEPXA #### [address] [phone] Residential Life Director: Norman Blake MD Immature granulocytes/100 WBC (Bld) 0 % Normal 0 [facility] Comment on above: Performed By: #### R EJEC, HEPXA #### [address] [address] Residential Life Director: Norman Blake MD Lymphocytes (Bld) [#/Vol] 1.66 10*3/uL Normal 1.10-3.70 [facility] Comment on above: Performed By: #### R EJEC, HEPXA #### [address] [id number] Residential Life Director: Norman Blake MD Lymphocytes/100 WBC (Bld) 38 % Normal 24-43 [facility] Comment on above: Performed By: #### R EJEC, HEPXA #### [address] [address] Residential Life Director: Norman Blake MD MCH (RBC) [Entitic mass] 24.8 pg Low 25.2-33.5 [facility] Comment on above: Performed By: #### R EJEC, HEPXA #### [address] [address] Residential Life Director: Norman Blake MD MCHC (RBC) [Mass/Vol] 31.8 g/dL Normal 28.4-34.8 [facility] Comment on above: Performed By: #### R EJEC, HEPXA #### [address] [address] Residential Life Director: Norman Blake MD MCV (RBC) [Entitic vol] 78.0 fL Low 82.6-102.9 [facility] Comment on above: Performed By: #### R EJEC, HEPXA #### [address] [address] Residential Life Director: Norman Blake MD Monocytes (Bld) [#/Vol] 0.25 10*3/uL Normal 0.10-1.20 [facility] Comment on above: Performed By: #### R EJEC, HEPXA #### [address] [address] Residential Life Director: Norman Blake MD Monocytes/100 WBC (Bld) 6 % Normal 3-12 [facility] Comment on above: Performed By: #### R EJEC, HEPXA #### [address] [address] Residential Life Director: Norman Blake MD Neutrophil (Seg) 56 % Normal 36-65 [facility] Comment on above: Performed By: #### R EJEC, HEPXA #### [address] [address] Residential Life Director: Norman Blake MD NRBC Automated 0.0 per 100 WBC Normal 0.0 [facility] Comment on above: Performed By: #### R EJEC, HEPXA #### [address] [address] Residential Life Director: Norman Blake MD Platelet mean volume (Bld) [Entitic vol] 10.5 fL Normal 8.1-13.5 [facility] Comment on above: Performed By: #### R EJEC, HEPXA #### [address] [address] Residential Life Director: Norman Blake MD Platelets (Bld) [#/Vol] 154 10*3/uL Normal 138-453 [facility] Comment on above: Performed By: #### R EJEC, HEPXA #### [address] [address] Residential Life Director: Norman Blake MD RBC (Bld) [#/Vol] 3.95 10*6/uL Normal 3.95-5.11 [facility] Comment on above: Performed By: #### R EJEC, HEPXA #### [facility] [address] [place] [address] Residential Life Director: Norman Blake MD RBC morphology finding Nom (Bld) ANISOCYTOSIS PRESENT Normal [facility] Comment on above: Result Comment: MICR OCYTOSIS PRESENT Performed By: #### R EJEC, HEPXA #### [facility] [address] [place] [address] Residential Life Director: Norman Blake MD WBC (Bld) [#/Vol] 4.4 10*3/uL Normal 3.5-11.3 [facility] Comment on above: Performed By: #### Jose WELCH, HEPXA #### [facility] [address] [place] [address] Residential Life Director: Norman Blake MD Heparin Anti-Xaon 03-20-2023 Heparin Anti-Xa 0.46 IU/L Normal [facility] Comment on above: Performed By: #### Jose WELCH, HEPXA #### [facility] [address] [place] [address] Residential Life Director: Norman Blake MD Magnesiumon 03-20-2023 Magnesium [Mass/Vol] 2.0 mg/dL Normal 1.6-2.6 [facility] Comment on above: Performed By: #### Jam RODAS, IOCAL #### [facility] [address] [place] [address] Residential Life Director: Norman Blake MD Troponinon 03-20-2023 Troponin, High Sens 295 ng/L Critically high 0-14 [facility] Comment on above: Result Comment: High Sensitivity Troponin values cannot be compared with other Troponin methodologies. Previous Alert Value Reported Performed By: #### Jam RODAS, IOCAL #### [facility] [address] [place] [address] Residential Life Director: Norman Blake MD Troponin, High Sens 308 ng/L Critically high 0-14 [facility] Comment on above: Result Comment: High Sensitivity Troponin values cannot be compared with other Troponin methodologies. Previous Alert Value Reported Performed By: #### R EJEC, HEPXA #### [address] [address] Residential Life Director: Norman Blake MD Basic Metabolic Profon 03-19 Potassium [Moles/Vol] 2.7 mmol/L Critically low 3.7-5.3 [facility] Comment on above: Performed By: #### H EPXA, TROPI, CDP, BMP #### [facility] [address] [place] [address] Residential Life Director: Norman Blake MD Anion gap [Moles/Vol] 8 mmol/L Low 9-17 [facility] Comment on above: Performed By: #### H EPXA, TROPI, CDP, BMP #### [facility] [address] [place] [address] Residential Life Director: Norman Blake MD Calcium [Mass/Vol] 6.0 mg/dL Low 8.6-10.4 [facility] Comment on above: Performed By: #### H EPXA, TROPI, CDP, BMP #### [facility] [address] [place] [address] Residential Life Director: Norman Blake MD Chloride [Moles/Vol] 101 mmol/L Normal 98-107 [facility] Comment on above: Performed By: #### H EPXA, TROPI, CDP, BMP #### [facility] [address] [place] [address] Residential Life Director: Norman Blake MD CO2 [Moles/Vol] 25 mmol/L Normal 20-31 [facility] Comment on above: Performed By: #### H EPXA, TROPI, CDP, BMP #### [facility] [address] [place] [address] Residential Life Director: Norman Blake MD Creatinine [Mass/Vol] 0.3 mg/dL Low 0.5-0.9 [facility] Comment on above: Performed By: #### H EPXA, TROPI, CDP, BMP #### [address] [address] Residential Life Director: Norman Blake MD GFR/1.73 sq M.predicted among non-blacks MDRD (S/P/Bld) [Vol rate/Area] mL/min/{1.73_m2} Normal >60 [facility] Comment on above: Result Comment: These results [...] #### H EPXA, TROPI, CDP, BMP #### [facility] [address] [place] [address] Residential Life Director: Norman Blake MD Glucose [Mass/Vol] 156 mg/dL High 70-99 [facility] Comment on above: Performed By: #### H EPXA, TROPI, CDP, BMP #### [facility] [address] [place] [address] Residential Life Director: Norman Blake MD Sodium [Moles/Vol] 134 mmol/L Low 135-144 [facility] Comment on above: Performed By: #### H EPXA, TROPI, CDP, BMP #### [facility] [address] [place] [address] Residential Life Director: Norman Blake MD Urea nitrogen [Mass/Vol] 4 mg/dL Low 6-20 [facility] Comment on above: Performed By: #### H EPXA, TROPI, CDP, BMP #### [facility] [address] [place] [address] Residential Life Director: Norman Blake MD Potassium [Moles/Vol] 2.5 mmol/L Critically low 3.7-5.3 [facility] Comment on above: Performed By: #### H EPXA, TROPI, CDP, BMP #### [facility] [address] [place] [address] Residential Life Director: Norman Blake MD Anion gap [Moles/Vol] 7 mmol/L Low 9-17 [facility] Comment on above: Performed By: #### H EPXA, TROPI, CDP, BMP #### [facility] [address] [place] [address] Residential Life Director: Norman Blake MD Calcium [Mass/Vol] 6.0 mg/dL Low 8.6-10.4 [facility] Comment on above: Performed By: #### H EPXA, TROPI, CDP, BMP #### [facility] [address] [place] [address] Residential Life Director: Norman Blake MD Chloride [Moles/Vol] 100 mmol/L Normal 98-107 [facility] Comment on above: Performed By: #### H EPXA, TROPI, CDP, BMP #### [facility] [address] [place] [address] Residential Life Director: Norman Blake MD CO2 [Moles/Vol] 23 mmol/L Normal 20-31 [facility] Comment on above: Performed By: #### H EPXA, TROPI, CDP, BMP #### [facility] [address] [place] [address] Residential Life Director: Norman Blake MD Creatinine [Mass/Vol] 0.4 mg/dL Low 0.5-0.9 [facility] Comment on above: Performed By: #### H EPXA, TROPI, CDP, BMP #### [facility] [address] [place] [address] Residential Life Director: Norman Blake MD GFR/1.73 sq M.predicted among non-blacks MDRD (S/P/Bld) [Vol rate/Area] mL/min/{1.73_m2} Normal >60 [facility] Comment on above: Result Comment: These results [...] #### H EPXA, TROPI, CDP, BMP #### [facility] [address] [place] [address] Residential Life Director: Norman Blake MD Glucose [Mass/Vol] 240 mg/dL High 70-99 [facility] Comment on above: Performed By: #### H EPXA, TROPI, CDP, BMP #### [facility] [address] [place] [address] Residential Life Director: Norman Blake MD Sodium [Moles/Vol] 130 mmol/L Low 135-144 [facility] Comment on above: Performed By: #### H EPXA, TROPI, CDP, BMP #### [employer] [address] [place] [address] Residential Life Director: Norman Blake MD Urea nitrogen [Mass/Vol] 6 mg/dL Normal 6-20 [facility] Comment on above: Performed By: #### H EPXA, TROPI, CDP, BMP #### [facility] [employer] [address] [place] [address] Residential Life Director: Norman Blake MD C Urineon 03-19-2023 C Urine Urine Culture ordered as a result of parameters set on specific urine dip and urine microsopic results. >3 Organisms Consistent with Contamination Recollection suggested. Normal [facility] Comment on above: Performed By: #### [id number], [id number] ####[facility] (DEFAULT)[address] [place] [address] CBC with Diffon 03-19-2023 Abs. Basophil <0.03 Normal 0.00-0.20 [facility] Comment on above: Performed By: #### H EPXA, TROPI, CDP, BMP #### [facility] [address] [place] [address] Residential Life Director: Norman Blake MD Abs. Eosinophil <0.03 Normal 0.00-0.44 [facility] Comment on above: Performed By: #### H EPXA, TROPI, CDP, BMP #### [facility] [address] [place] [address] Residential Life Director: Norman lBake MD Abs.Imm.Granulocyte <0.03 Normal 0.00-0.30 [facility] Comment on above: Performed By: #### H EPXA, TROPI, CDP, BMP #### [facility] [address] [place] [address] Residential Life Director: Norman Blake MD Abs.Neutrophil (Seg) 5.63 k/uL Normal 1.50-8.10 [facility] Comment on above: Performed By: #### H EPXA, TROPI, CDP, BMP #### [facility] [address] [place] [address] Residential Life Director: Norman Blake MD Basophils/100 WBC (Bld) 0 % Normal 0-2 [facility] Comment on above: Performed By: #### H EPXA, TROPI, CDP, BMP #### [facility] [address] [place] [address] Residential Life Director: Norman Blake MD Eosinophils/100 WBC (Bld) 0 % Low 1-4 [facility] Comment on above: Performed By: #### H EPXA, TROPI, CDP, BMP #### [facility] [address] [place] [address] Residential Life Director: Norman Blake MD Erythrocyte distribution width (RBC) [Ratio] 14.0 % Normal 11.8-14.4 [facility] Comment on above: Performed By: #### H EPXA, TROPI, CDP, BMP #### [facility] [address] [place] [address] Residential Life Director: Norman Blake MD Hematocrit (Bld) [Volume fraction] 31.0 % Low 36.3-47.1 [facility] Comment on above: Performed By: #### H EPXA, TROPI, CDP, BMP #### [facility] [address] [place] [address] Residential Life Director: Norman Blake MD Hemoglobin (Bld) [Mass/Vol] 10.9 g/dL Low 11.9-15.1 [facility] Comment on above: Performed By: #### H EPXA, TROPI, CDP, BMP #### [facility] [address] [place] [address] Residential Life Director: Norman Blake MD Immature granulocytes/100 WBC (Bld) 0 % Normal 0 [facility] Comment on above: Performed By: #### H EPXA, TROPI, CDP, BMP #### [facility] [address] [place] [address] Residential Life Director: Norman Blake MD Lymphocytes (Bld) [#/Vol] 1.34 10*3/uL Normal 1.10-3.70 [facility] Comment on above: Performed By: #### H EPXA, TROPI, CDP, BMP #### [facility] [address] [place] [address] Residential Life Director: Norman Blake MD Lymphocytes/100 WBC (Bld) 18 % Low 24-43 [facility] Comment on above: Performed By: #### H EPXA, TROPI, CDP, BMP #### [facility] [place] [address] Residential Life Director: Norman Blake MD MCH (RBC) [Entitic mass] 25.8 pg Normal 25.2-33.5 [facility] Comment on above: Performed By: #### H EPXA, TROPI, CDP, BMP #### [facility] [address] [place] [address] Residential Life Director: Norman Blake MD MCHC (RBC) [Mass/Vol] 35.2 g/dL High 28.4-34.8 [facility] Comment on above: Performed By: #### H EPXA, TROPI, CDP, BMP #### [facility] [address] [place] [address] Residential Life Director: Norman Blake MD MCV (RBC) [Entitic vol] 73.3 fL Low 82.6-102.9 [facility] Comment on above: Performed By: #### H EPXA, TROPI, CDP, BMP #### [facility] [address] [place] [address] Residential Life Director: Norman Blake MD Monocytes (Bld) [#/Vol] 0.41 10*3/uL Normal 0.10-1.20 [facility] Comment on above: Performed By: #### H EPXA, TROPI, CDP, BMP #### [facility] [address] [place] [address] Residential Life Director: Norman Blake MD Monocytes/100 WBC (Bld) 6 % Normal 3-12 [facility] Comment on above: Performed By: #### H EPXA, TROPI, CDP, BMP #### [facility] [address] [place] [address] Residential Life Director: Norman Blake MD Neutrophil (Seg) 76 % High 36-65 [facility] Comment on above: Performed By: #### H EPXA, TROPI, CDP, BMP #### [address] [address] Residential Life Director: Norman Blake MD NRBC Automated 0.0 per 100 WBC Normal 0.0 [facility] Comment on above: Performed By: #### H EPXA, TROPI, CDP, BMP #### [facility] [address] [place] [address] Residential Life Director: Norman Blake MD Platelet mean volume (Bld) [Entitic vol] 9.5 fL Normal 8.1-13.5 [facility] Comment on above: Performed By: #### H EPXA, TROPI, CDP, BMP #### [facility] [address] [place] [address] Residential Life Director: Norman Blake MD Platelets (Bld) [#/Vol] 189 10*3/uL Normal 138-453 [facility] Comment on above: Performed By: #### H EPXA, TROPI, CDP, BMP #### [facility] [address] [place] [address] Residential Life Director: Norman Blake MD RBC (Bld) [#/Vol] 4.23 10*6/uL Normal 3.95-5.11 [facility] Comment on above: Performed By: #### H EPXA, TROPI, CDP, BMP #### [facility] [address] [place] [address] Residential Life Director: Norman Blake MD RBC morphology finding Nom (Bld) MICROCYTOSIS PRESENT Normal [facility] Comment on above: Performed By: #### H EPXA, TROPI, CDP, BMP #### [address] [address] Residential Life Director: Norman Blake MD WBC (Bld) [#/Vol] 7.4 10*3/uL Normal 3.5-11.3 [facility] Comment on above: Performed By: #### H EPXA, TROPI, CDP, BMP #### [address] [address] Residential Life Director: Norman Blake MD Abs. Basophil <0.03 Normal 0.00-0.20 [facility] Comment on above: Performed By: #### H EPXA, TROPI, CDP, BMP #### [address] [address] Residential Life Director: Norman Blake MD Abs. Eosinophil <0.03 Normal 0.00-0.44 [facility] Comment on above: Performed By: #### H EPXA, TROPI, CDP, BMP #### [address] [address] Residential Life Director: Norman Blake MD Abs.Imm.Granulocyte <0.03 Normal 0.00-0.30 [facility] Comment on above: Performed By: #### H EPXA, TROPI, CDP, BMP #### [address] [address] Residential Life Director: Norman Blake MD Abs.Neutrophil (Seg) 7.00 k/uL Normal 1.50-8.10 [facility] Comment on above: Performed By: #### H EPXA, TROPI, CDP, BMP #### [place] [address] Residential Life Director: Norman Blake MD Basophils/100 WBC (Bld) 0 % Normal 0-2 [facility] Comment on above: Performed By: #### H EPXA, TROPI, CDP, BMP #### [address] [address] Residential Life Director: Norman Blake MD Eosinophils/100 WBC (Bld) 0 % Low 1-4 [facility] Comment on above: Performed By: #### H EPXA, TROPI, CDP, BMP #### [facility] [address] [place] [address] Residential Life Director: Norman Blake MD Erythrocyte distribution width (RBC) [Ratio] 14.2 % Normal 11.8-14.4 [facility] Comment on above: Performed By: #### H EPXA, TROPI, CDP, BMP #### [facility] [address] [place] [address] Residential Life Director: Norman Blake MD Hematocrit (Bld) [Volume fraction] 31.1 % Low 36.3-47.1 [facility] Comment on above: Performed By: #### H EPXA, TROPI, CDP, BMP #### [facility] [address] [place] [address] Residential Life Director: Norman Blake MD Hemoglobin (Bld) [Mass/Vol] 10.8 g/dL Low 11.9-15.1 [facility] Comment on above: Performed By: #### H EPXA, TROPI, CDP, BMP #### [facility] [address] [place] [address] Residential Life Director: Norman Blake MD Immature granulocytes/100 WBC (Bld) 0 % Normal 0 [facility] Comment on above: Performed By: #### H EPXA, TROPI, CDP, BMP #### [facility] [address] [place] [address] Residential Life Director: Norman Blake MD Lymphocytes (Bld) [#/Vol] 0.85 10*3/uL Low 1.10-3.70 [facility] Comment on above: Performed By: #### H EPXA, TROPI, CDP, BMP #### [address] [address] Residential Life Director: Norman Blake MD Lymphocytes/100 WBC (Bld) 10 % Low 24-43 [facility] Comment on above: Performed By: #### H EPXA, TROPI, CDP, BMP #### [address] [address] Residential Life Director: Norman Blake MD MCH (RBC) [Entitic mass] 25.4 pg Normal 25.2-33.5 [facility] Comment on above: Performed By: #### H EPXA, TROPI, CDP, BMP #### [address] [address] Residential Life Director: Norman Blake MD MCHC (RBC) [Mass/Vol] 34.7 g/dL Normal 28.4-34.8 [facility] Comment on above: Performed By: #### H EPXA, TROPI, CDP, BMP #### [address] [address] Residential Life Director: Norman Blake MD MCV (RBC) [Entitic vol] 73.2 fL Low 82.6-102.9 [facility] Comment on above: Performed By: #### H EPXA, TROPI, CDP, BMP #### [address] [address] Residential Life Director: Norman Blake MD Monocytes (Bld) [#/Vol] 0.44 10*3/uL Normal 0.10-1.20 [facility] Comment on above: Performed By: #### H EPXA, TROPI, CDP, BMP #### [address] [address] Residential Life Director: Norman Blake MD Monocytes/100 WBC (Bld) 5 % Normal 3-12 [facility] Comment on above: Performed By: #### H EPXA, TROPI, CDP, BMP #### [facility] [address] [place] [address] Residential Life Director: Norman Blake MD Neutrophil (Seg) 84 % High 36-65 [facility] Comment on above: Performed By: #### H EPXA, TROPI, CDP, BMP #### [facility] [address] [place] [address] Residential Life Director: Norman Blake MD NRBC Automated 0.0 per 100 WBC Normal 0.0 [facility] Comment on above: Performed By: #### H EPXA, TROPI, CDP, BMP #### [facility] [address] [place] [address] Residential Life Director: Norman Blake MD Platelet mean volume (Bld) [Entitic vol] 9.5 fL Normal 8.1-13.5 [facility] Comment on above: Performed By: #### H EPXA, TROPI, CDP, BMP #### [facility] [address] [place] [address] Residential Life Director: Norman Blake MD Platelets (Bld) [#/Vol] 194 10*3/uL Normal 138-453 [facility] Comment on above: Performed By: #### H EPXA, TROPI, CDP, BMP #### [facility] [address] [place] [address] Residential Life Director: Norman Blake MD RBC (Bld) [#/Vol] 4.25 10*6/uL Normal 3.95-5.11 [facility] Comment on above: Performed By: #### H EPXA, TROPI, CDP, BMP #### [facility] [address] [place] [address] Residential Life Director: Norman Blake MD RBC morphology finding Nom (Bld) MICROCYTOSIS PRESENT Normal [facility] Comment on above: Performed By: #### H EPXA, TROPI, CDP, BMP #### [address] [address] Residential Life Director: Norman Blake MD WBC (Bld) [#/Vol] 8.3 10*3/uL Normal 3.5-11.3 [facility] Comment on above: Performed By: #### H EPXA, TROPI, CDP, BMP #### [facility] [address] [place] [address] Residential Life Director: Norman Blake MD Cult,Urineon 03-19-2023 Cult,Urine Specimen Description .CLEAN CATCH URINE Culture NO GROWTH Report Status FINAL 03/19/2023 Normal [facility] Comment on above: Performed By: #### U RC #### [address] [address] Residential Life Director: Norman Blake MD Electrolyteson 03-19-2023 Anion gap [Moles/Vol] 10 mmol/L Normal 9-17 [facility] Comment on above: Performed By: #### Jam RODAS IOCAL #### [address] [address] Residential Life Director: Norman Blake MD Chloride [Moles/Vol] 94 mmol/L Low 98-107 [facility] Comment on above: Performed By: #### Jam RODAS IOCAL #### [facility] [address] [place] [address] Residential Life Director: Norman Blake MD CO2 [Moles/Vol] 25 mmol/L Normal 20-31 [facility] Comment on above: Performed By: #### Jam RODAS IOCAL #### [facility] [address] [place] [address] Residential Life Director: Norman Blake MD Potassium [Moles/Vol] 3.5 mmol/L Low 3.7-5.3 [facility] Comment on above: Performed By: #### D CLARK, IOCAL #### [facility] [address] [place] [address] Residential Life Director: Norman Blake MD Sodium [Moles/Vol] 129 mmol/L Low 135-144 [facility] Comment on above: Performed By: #### D CLARK, IOCAL #### [facility] [address] [place] [address] Residential Life Director: Norman Blake MD Anion gap [Moles/Vol] 11 mmol/L Normal 9-17 [facility] Comment on above: Performed By: #### H EPXA, TROPI, CDP, BMP #### [facility] [address] [place] [address] Residential Life Director: Norman Blake MD Chloride [Moles/Vol] 95 mmol/L Low 98-107 [facility] Comment on above: Performed By: #### H EPXA, TROPI, CDP, BMP #### [facility] [address] [place] [address] Residential Life Director: Norman Blake MD CO2 [Moles/Vol] 24 mmol/L Normal 20-31 [facility] Comment on above: Performed By: #### H EPXA, TROPI, CDP, BMP #### [facility] [address] [place] [address] Residential Life Director: Norman Blake MD Potassium [Moles/Vol] 3.4 mmol/L Low 3.7-5.3 [facility] Comment on above: Performed By: #### H EPXA, TROPI, CDP, BMP #### [facility] [address] [place] [address] Residential Life Director: Norman Blake MD Sodium [Moles/Vol] 130 mmol/L Low 135-144 [facility] Comment on above: Performed By: #### H EPXA, TROPI, CDP, BMP #### [facility] [address] [place] [address], [place] [address] Residential Life Director: Norman Blake MD Heparin Anti-Xaon 03-19-2023 Heparin Anti-Xa 0.37 IU/L Normal [facility] Comment on above: Performed By: #### R EJEC, HEPXA #### [facility] [address] [place] [address] Residential Life Director: Norman Blake MD Heparin Anti-Xa 0.40 IU/L Normal [facility] Comment on above: Performed By: #### H EPXA, TROPI, CDP, BMP #### [facility] [address] [place] [address] Residential Life Director: Norman Blake MD Heparin Anti-Xa 0.16 IU/L Normal [facility] Comment on above: Performed By: #### H EPXA, TROPI, CDP, BMP #### [facility] [address] [place] [address] Residential Life Director: Norman Blake MD Heparin Anti-Xa 0.12 IU/L Normal [facility] Comment on above: Performed By: #### H EPXA, TROPI, CDP, BMP #### [facility] [address] [place] [address] Residential Life Director: Norman Blake MD MRSA, DNA, Nasalon MRSA, DNA, Nasal Negative Normal [facility] Comment on above: Result Comment: NEGA TIVE: MRSA DNA not detected by nucleic acid amplification. Results should be used as an adjunct to nosocomial control efforts to identify patients needing enhanced precautions. The test is not intended to identify patients with staphylococcal infections. Results should not be used to guide or monitor treatment for MRSA infections. Performed By: #### D CLARK, IOCAL #### [facility] [address] [place] [address] Residential Life Director: Norman Blake MD Magnesiumon 03-19-2023 Magnesium [Mass/Vol] 1.9 mg/dL Normal 1.6-2.6 [facility] Comment on above: Performed By: #### D CLARK, IOCAL #### [facility] [address] [place] [address] Residential Life Director: Norman Blake MD Magnesium [Mass/Vol] 1.9 mg/dL Normal 1.6-2.6 [facility] Comment on above: Performed By: #### H EPXA, TROPI, CDP, BMP #### [facility] [address] [place] [address] Residential Life Director: Norman Blake MD Magnesium [Mass/Vol] 2.0 mg/dL Normal 1.6-2.6 [facility] Comment on above: Performed By: #### R EJEC, HEPXA #### [facility] [address] [place] [address] Residential Life Director: Norman Blake MD Magnesium [Mass/Vol] 2.0 mg/dL Normal 1.6-2.6 [facility] Comment on above: Performed By: #### Jam RODAS, IOCAL #### [facility] [address] [place] [address] Residential Life Director: Norman Blake MD Magnesium [Mass/Vol] 1.6 mg/dL Normal 1.6-2.6 [facility] Comment on above: Performed By: #### H EPXA, TROPI, CDP, BMP #### [facility] [address] [place] [address] Residential Life Director: Norman Blake MD Phosphorus, Inorg.on 023 Phosphorus, Inorg. 1.7 mg/dL Low 2.6-4.5 [facility] Comment on above: Performed By: #### D CLARK, IOCAL #### [facility] [address] [place] [address] Residential Life Director: Norman Blake MD Phosphorus, Inorg. 1.5 mg/dL Low 2.6-4.5 [facility] Comment on above: Performed By: #### H EPXA, TROPI, CDP, BMP #### [facility] [address] [place] [address] Residential Life Director: Norman Blake MD Phosphorus, Inorg. 1.3 mg/dL Low 2.6-4.5 [facility] Comment on above: Performed By: #### R EJEC, HEPXA #### [facility] [address] [place] [address] Residential Life Director: Norman Blake MD Phosphorus, Inorg. 1.1 mg/dL Low 2.6-4.5 [facility] Comment on above: Performed By: #### D CLARK, IOCAL #### [facility] [address] [place] [address] Residential Life Director: Norman Blake MD Phosphorus, Inorg. 0.7 mg/dL Critically low 2.6-4.5 [facility] Comment on above: Performed By: #### H EPXA, TROPI, CDP, BMP #### [facility] [address] [place] [address] Residential Life Director: Norman Blake MD Troponinon 03-19-2023 Troponin, High Sens 328 ng/L Critically high 0-14 [facility] Comment on above: Result Comment: High Sensitivity Troponin values cannot be compared with other Troponin methodologies. Previous Alert Value Reported Performed By: #### D CLARK, IOCAL #### [facility] [address] [place] [address] Residential Life Director: Norman Blake MD Troponin, High Sens 389 ng/L Critically high 0-14 [facility] Comment on above: Result Comment: High Sensitivity Troponin values cannot be compared with other Troponin methodologies. Previous Alert Value Reported Performed By: #### H EPXA, TROPI, CDP, BMP #### [address] [address] Residential Life Director: Norman Blake MD Troponin, High Sens 481 ng/L Critically high 0-14 [facility] Comment on above: Result Comment: High Sensitivity Troponin values cannot be compared with other Troponin methodologies. Previous Alert Value Reported Performed By: #### H EPXA, TROPI, CDP, BMP #### [address] [address] Residential Life Director: Norman Blake MD Troponin, High Sens 649 ng/L Critically high 0-14 [facility] Comment on above: Result Comment: High Sensitivity Troponin values cannot be compared with other Troponin methodologies. Previous Alert Value Reported Performed By: #### H EPXA, TROPI, CDP, BMP #### [address] [address] Residential Life Director: Norman Blake MD Venous Blood Gaseson 023 Body Temp. 37.0 Normal [facility] Comment on above: Performed By: #### Jam RODAS IOCAL #### [address] [address] Residential Life Director: Norman Blake MD Carboxy Hgb 1.1 % Normal 0-5 [facility] Comment on above: Result Comment: Reference Range: Non-Smokers 0-2% Average Smoker 2-4% Heavy Smoker <10% Performed By: #### Jam RODAS IOCAL #### [address] [address] Residential Life Director: Norman Blake MD FIO2 Unknown Normal [facility] Comment on above: Performed By: #### Jam RODAS, IOCAL #### [facility] [address] [place] [address] Residential Life Director: Norman Blake MD HCO3 (Bld) [Moles/Vol] 25.9 mmol/L Normal 24-30 [facility] Comment on above: Performed By: #### D CLARK, IOCAL #### [facility] [address] [place] [address] Residential Life Director: Norman Blake MD Oxygen saturation in Blood 97.3 % High 60.0-85.0 [facility] Comment on above: Performed By: #### D CLARK, IOCAL #### [facility] [address] [place] [address] Residential Life Director: Norman Blake MD pCO2 40.3 mm Hg Normal 39-55 [facility] Comment on above: Performed By: #### Jam RODAS, IOCAL #### [facility] [address] [place] [address] Residential Life Director: Norman Blake MD pH (Bld) 7.424 [pH] High 7.320-7.420 [facility] Comment on above: Performed By: #### Jam RODAS, IOCAL #### [facility] [address] [place] [address] Residential Life Director: Norman Blake MD pO2 128.0 mm Hg High 30-50 [facility] Comment on above: Performed By: #### Jam RODAS, IOCAL #### [facility] [address] [place] [address] Residential Life Director: Norman Blake MD Positive Base Excess 1.8 mmol/L Normal 0.0-2.0 [facility] Comment on above: Performed By: #### D CLARK, IOCAL #### [facility] [address] [place] [address] Residential Life Director: Norman Blake MD .Auto Diff - Auto Irwin % 3 % Normal -12 [facility] Comment on above: Performed By: #### 7 [id number], [id number], [id number], [id number], [id number], [id number] ####[facility] (DEFAULT)[address] [place] [address]32 Baso Abs# 0.1 x10 Normal 0.0-0.2 [facility] Comment on above: Performed By: #### 7 [id number], [id number], [id number], [id number], [id number], [id number] ####[facility] (DEFAULT)[address] [place] [address]39 Basophils/100 WBC (Bld) 0.6 % Normal 0.2-2.0 [facility] Comment on above: Performed By: #### 7 [id number], [id number], [id number], [id number], [id number], [id number] ####[facility] (DEFAULT)[address] [place] [address] 38485 Eos Abs# 0.0 x10 Normal 0.0-0.4 [facility] Comment on above: Performed By: #### 7 508229, [id number], [id number], [id number], [id number], [id number] ####[facility] (DEFAULT)[address] [place] [address]45 Eosinophils/100 WBC (Bld) 0.1 % Low 0.9-4.0 [facility] Comment on above: Performed By: #### 7 164955, [id number], [id number], [id number], [id number], [id number] ####[facility] (DEFAULT)[address] [place] [address] 14762 Lymph Abs# 1.4 x10 Normal 1.3-2.9 [facility] Comment on above: Performed By: #### 7 [id number], [id number], [id number], [id number], [id number], [id number] ####[facility] (DEFAULT)[address] [place] [address] 82142 Lymphocytes/100 WBC (Bld) 6 % Low 14-48 [facility] Comment on above: Performed By: #### 7 [id number], [id number], [id number], [id number], [id number], [id number] ####[facility] (DEFAULT)[address] [place] [address] 65666 Irwin Abs# 0.7 x10 Normal 0.0-0.8 [facility] Comment on above: Performed By: #### 7 185736, [id number], [id number], [id number], [id number], [id number] ####[facility] (DEFAULT)[address] [place] [address] 29868 Neut Abs# 19.8 x10 High 1.5-9.2 [facility] Comment on above: Performed By: #### 7 191749, [id number], [id number], [id number], [id number], [id number] ####[facility] (DEFAULT)[address] [place] [address] Neutrophils/100 WBC (Bld) 90 % High 44-88 [facility] Comment on above: Performed By: #### 7 [id number], [id number], [id number], [id number], [id number], [id number] ####[facility] (DEFAULT)[address] [place] [address] 51722 APTTon 03-18-2023 aPTT Coag (Bld) [Time] 20.5 s Low 23.0-36.5 [facility] Comment on above: Result Comment: IV Heparin Therapy Range: 66.0-92.0 sec Performed By: #### R EJEC, HEPXA #### [facility] [address] [place] [address] Residential Life Director: Norman Blake MD Acet Levelon 03-18-2023 Acetaminoph Lvl <10 Normal 10-30 [facility] Comment on above: Performed By: #### 4 [id number] #### [facility] (DEFAULT) [address] [place] [address]28 Arterial Blood Gas Standardo n 03-18-2023 Cami Test Art Positive Normal [facility] Comment on above: Performed By: #### 1 [id number] ####[facility] (DEFAULT)[address] [place] [address]33 Breakpoint Hemo Normal [facility] Comment on above: Performed By: #### 1 [id number] ####[facility] (DEFAULT)[address] [place] [address] Device Room Air Normal [facility] Comment on above: Performed By: #### 1 [id number] ####[facility] (DEFAULT)[address] [place] [address] 21937 Fio2 Art 21.0 % Normal 21.0-100.0 [facility] Comment on above: Performed By: #### 1 [id number] ####[facility] (DEFAULT)[address] [place] [address] 15270 Oxygen saturation in Blood 96.9 % Normal 95.0-100.0 [facility] Comment on above: Performed By: #### 1 [id number] ####[facility] (DEFAULT)[address] [place] [address] pH Art 6.89 Critically abnormal 7.37-7.44 [facility] Comment on above: Result Comment: Crit ical pH results and PCO2 result will not calculate due to it being < 9.5 results given to Radha Cintron @2318 03/18/2023 per Anjana Garcia RRT. RBV Performed By: #### 1 [id number] ####[facility] (DEFAULT)[address] [place] [address]355 pO2 Art 144 mmHg High 75-100 [facility] Comment on above: Performed By: #### 1 [id number] ####[facility] (DEFAULT)[address] [place] [address] Puncture Site Right Radial Normal [facility] Comment on above: Performed By: #### 1 [id number] ####[facility] (DEFAULT)[address] [place] [address] Rate: 38 Invalid Interpretation Code [facility] Comment on above: Performed By: #### 1 [id number] ####[facility] (DEFAULT)[address] [place] [address] BNP.on 03-18-2023 Natriuretic peptide B (Bld) [Mass/Vol] 170.0 pg/mL High 0.0-100.0 [facility] Comment on above: Result Comment: BNP results greater than 100 pg/mL are considered abnormal and suggestive of patients with CHF. Higher BNP concentrations measured in the first 72 hours after an acute coronary syndorme are associated with an increased risk of , myocardial infarction, and CHF. Performed By: #### 4 [id number] #### [facility] (DEFAULT) [address] [place] [address] Basic Metabolic Profon 03-18 Potassium [Moles/Vol] 2.2 mmol/L Critically low 3.7-5.3 [facility] Comment on above: Performed By: #### Jam RODAS IOCAL #### [facility] [address] [place] [address] Residential Life Director: Norman Blake MD Anion gap [Moles/Vol] 11 mmol/L Normal 9-17 [facility] Comment on above: Performed By: #### Jam RODAS IOCAL #### [facility] [address] [place] [address] Residential Life Director: Norman Blake MD Calcium [Mass/Vol] 6.4 mg/dL Low 8.6-10.4 [facility] Comment on above: Performed By: #### Jam RODAS, IOCAL #### [facility] [address] [place] [address] Residential Life Director: Norman Blake MD Chloride [Moles/Vol] 101 mmol/L Normal 98-107 [facility] Comment on above: Performed By: #### Jam RODAS, IOCAL #### [facility] [address] [place] [address] Residential Life Director: Norman Blake MD CO2 [Moles/Vol] 19 mmol/L Low 20-31 [facility] Comment on above: Performed By: #### Jam RODAS, IOCAL #### [facility] [address] [place] [address] Residential Life Director: Norman Blake MD Creatinine [Mass/Vol] 0.4 mg/dL Low 0.5-0.9 [facility] Comment on above: Performed By: #### Jam RODAS IOCAL #### [facility] [address] [place] [address] Residential Life Director: Norman Blake MD GFR/1.73 sq M.predicted among non-blacks MDRD (S/P/Bld) [Vol rate/Area] mL/min/{1.73_m2} Normal >60 [facility] Comment on above: Result Comment: These results [...] Performed By: #### Jam RODAS IOCAL #### [facility] [address] [place] [address] Residential Life Director: Norman Blake MD Glucose [Mass/Vol] 149 mg/dL High 70-99 [facility] Comment on above: Performed By: #### Jam RODAS IOCAL #### [facility] [address] [place] [address] Residential Life Director: Norman Blake MD Sodium [Moles/Vol] 131 mmol/L Low 135-144 [facility] Comment on above: Performed By: #### Jam RODAS IOCAL #### [facility] [address] [place] [address] Residential Life Director: Norman Blake MD Urea nitrogen [Mass/Vol] 8 mg/dL Normal 6-20 [facility] Comment on above: Performed By: #### Jam RODAS, IOCAL #### [facility] [address] [place] [address] Residential Life Director: Norman Blake MD Potassium [Moles/Vol] 2.5 mmol/L Critically low 3.7-5.3 [facility] Comment on above: Result Comment: TEST CONFIRMED Performed By: #### R EJEC, HEPXA #### [facility] [address] [place] [address] Residential Life Director: Norman Blake MD Anion gap [Moles/Vol] 12 mmol/L Normal 9-17 [facility] Comment on above: Performed By: #### R EJEC, HEPXA #### [address] [address] Residential Life Director: Norman Blake MD Calcium [Mass/Vol] 6.5 mg/dL Low 8.6-10.4 [facility] Comment on above: Performed By: #### R EJEC, HEPXA #### [address] [address] Residential Life Director: Norman Blake MD Chloride [Moles/Vol] 104 mmol/L Normal 98-107 [facility] Comment on above: Performed By: #### R EJEC, HEPXA #### [address] [address] Residential Life Director: Norman Blake MD CO2 [Moles/Vol] 13 mmol/L Low 20-31 [facility] Comment on above: Performed By: #### R EJEC, HEPXA #### [facility] [address] [place] [address] Residential Life Director: Norman Blake MD Creatinine [Mass/Vol] 0.5 mg/dL Normal 0.5-0.9 [facility] Comment on above: Performed By: #### R EJEC, HEPXA #### [facility] [address] [place] [address] Residential Life Director: Norman Blake MD GFR/1.73 sq M.predicted among non-blacks MDRD (S/P/Bld) [Vol rate/Area] mL/min/{1.73_m2} Normal >60 [facility] Comment on above: Result Comment: These results [...] Performed By: #### R EJEC, HEPXA #### [facility] [address] [place] [address] Residential Life Director: Norman Blake MD Glucose [Mass/Vol] 219 mg/dL High 70-99 [facility] Comment on above: Performed By: #### R EJEC, HEPXA #### [facility] [address] [place] [address] Residential Life Director: Norman Blake MD Sodium [Moles/Vol] 129 mmol/L Low 135-144 [facility] Comment on above: Performed By: #### R EJEC, HEPXA #### [facility] [address] [place] [address] Residential Life Director: Norman Blake MD Urea nitrogen [Mass/Vol] 10 mg/dL Normal 6-20 [facility] Comment on above: Performed By: #### R EJEC, HEPXA #### [facility] [address] [place] [address] Residential Life Director: Norman Blake MD Anion gap [Moles/Vol] 18 mmol/L High 9-17 [facility] Comment on above: Performed By: #### R EJEC, HEPXA #### [facility] [address] [place] [address] Residential Life Director: Norman Blake MD CO2 [Moles/Vol] 7 mmol/L Critically low 20-31 [facility] Comment on above: Performed By: #### R EJEC, HEPXA #### [address] [address] Residential Life Director: Norman Blake MD Calcium [Mass/Vol] 6.5 mg/dL Low 8.6-10.4 [facility] Comment on above: Performed By: #### R EJEC, HEPXA #### [facility] [address] [place] [address] Residential Life Director: Norman Blake MD Chloride [Moles/Vol] 105 mmol/L Normal 98-107 [facility] Comment on above: Performed By: #### R EJEC, HEPXA #### [address] [address] Residential Life Director: Norman Blake MD Creatinine [Mass/Vol] 0.7 mg/dL Normal 0.5-0.9 [facility] Comment on above: Performed By: #### R EJEC, HEPXA #### [address] [address] Residential Life Director: Norman Blake MD GFR/1.73 sq M.predicted among non-blacks MDRD (S/P/Bld) [Vol rate/Area] mL/min/{1.73_m2} Normal >60 [facility] Comment on above: Result Comment: These results [...] Performed By: #### R EJEC, HEPXA #### [address] [address] Residential Life Director: Norman Blake MD Glucose [Mass/Vol] 267 mg/dL High 70-99 [facility] Comment on above: Performed By: #### R EJEC, HEPXA #### [address] [address] Residential Life Director: Norman Blake MD Potassium [Moles/Vol] 3.8 mmol/L Normal 3.7-5.3 [facility] Comment on above: Performed By: #### R EJEC, HEPXA #### [address] [address] Residential Life Director: Norman Blake MD Sodium [Moles/Vol] 130 mmol/L Low 135-144 [facility] Comment on above: Performed By: #### R EJEC, HEPXA #### [address] [address] Residential Life Director: Norman Blake MD Urea nitrogen [Mass/Vol] 15 mg/dL Normal 6-20 [facility] Comment on above: Performed By: #### R EJEC, HEPXA #### [address] [address] Residential Life Director: Norman Blake MD Anion Gap Unable to calculate anion gap due to CO2 less than 6. Normal 9-17 [facility] Comment on above: Performed By: #### H EPXA, TROPI, CDP, BMP #### [address] [address] Residential Life Director: Norman Blake MD Calcium [Mass/Vol] 6.4 mg/dL Low 8.6-10.4 [facility] Comment on above: Performed By: #### H EPXA, TROPI, CDP, BMP #### [address] [address] Residential Life Director: Norman Blake MD Chloride [Moles/Vol] 104 mmol/L Normal 98-107 [facility] Comment on above: Performed By: #### H EPXA, TROPI, CDP, BMP #### [facility] [place] [address] Residential Life Director: Norman Blake MD CO2 [Moles/Vol] mmol/L Critically low 20-31 [facility] Comment on above: Performed By: #### H EPXA, TROPI, CDP, BMP #### [facility] [address] [place] [address] Residential Life Director: Norman Blake MD Creatinine [Mass/Vol] 0.7 mg/dL Normal 0.5-0.9 [facility] Comment on above: Performed By: #### H EPXA, TROPI, CDP, BMP #### [address] [address] Residential Life Director: Norman Blake MD GFR/1.73 sq M.predicted among non-blacks MDRD (S/P/Bld) [Vol rate/Area] mL/min/{1.73_m2} Normal >60 [facility] Comment on above: Result Comment: These results [...] #### H EPXA, TROPI, CDP, BMP #### [facility] [address] [place] [address] Residential Life Director: Norman Blake MD Glucose [Mass/Vol] 254 mg/dL High 70-99 [facility] Comment on above: Performed By: #### H EPXA, TROPI, CDP, BMP #### [facility] [address] [place] [address] Residential Life Director: Norman Blake MD Potassium [Moles/Vol] 3.8 mmol/L Normal 3.7-5.3 [facility] Comment on above: Performed By: #### H EPXA, TROPI, CDP, BMP #### [facility] [address] [place] [address] Residential Life Director: Norman Blake MD Sodium [Moles/Vol] 129 mmol/L Low 135-144 [facility] Comment on above: Performed By: #### H EPXA, TROPI, CDP, BMP #### [facility] [address] [place] [address] Residential Life Director: Norman Blake MD Urea nitrogen [Mass/Vol] 17 mg/dL Normal 6-20 [facility] Comment on above: Performed By: #### H EPXA, TROPI, CDP, BMP #### [facility] [address] [place] [address] Residential Life Director: Norman Blake MD Beta Hydroxybutyrateon 03-18 Beta Hydroxybutyrate 3.84 mmol/L High 0.02-0.27 [facility] Comment on above: Performed By: #### H EPXA, TROPI, CDP, BMP #### [facility] [address] [place] [address] Residential Life Director: Norman Blake MD CBCon 03-18-2023 Erythrocyte distribution width (RBC) [Ratio] 14.2 % Normal 11.8-14.4 [facility] Comment on above: Performed By: #### R EJEC, HEPXA #### [facility] [address] [place] [address] Residential Life Director: Norman Blake MD Hematocrit (Bld) [Volume fraction] 37.1 % Normal 36.3-47.1 [facility] Comment on above: Performed By: #### R EJEC, HEPXA #### [facility] [address] [place] [address] Residential Life Director: Norman Blake MD Hemoglobin (Bld) [Mass/Vol] 11.7 g/dL Low 11.9-15.1 [facility] Comment on above: Performed By: #### R EJEC, HEPXA #### [address] [address] Residential Life Director: Norman Blake MD MCH (RBC) [Entitic mass] 24.9 pg Low 25.2-33.5 [facility] Comment on above: Performed By: #### R EJEC, HEPXA #### [address] [address] Residential Life Director: Norman Blake MD MCHC (RBC) [Mass/Vol] 31.5 g/dL Normal 28.4-34.8 [facility] Comment on above: Performed By: #### R EJEC, HEPXA #### [address] [address] Residential Life Director: Norman Blake MD MCV (RBC) [Entitic vol] 79.1 fL Low 82.6-102.9 [facility] Comment on above: Performed By: #### R EJEC, HEPXA #### [address] [address] Residential Life Director: Norman Blake MD NRBC Automated 0.0 per 100 WBC Normal 0.0 [facility] Comment on above: Performed By: #### R EJEC, HEPXA #### [address] [address] Residential Life Director: Norman Blake MD Platelet mean volume (Bld) [Entitic vol] 10.0 fL Normal 8.1-13.5 [facility] Comment on above: Performed By: #### R EJEC, HEPXA #### [address] [address] Residential Life Director: Norman Blake MD Platelets (Bld) [#/Vol] 232 10*3/uL Normal 138-453 [facility] Comment on above: Performed By: #### R EJEC, HEPXA #### [facility] [address] [place], [place] [id number] Residential Life Director: Norman Blake MD RBC (Bld) [#/Vol] 4.69 10*6/uL Normal 3.95-5.11 [facility] Comment on above: Performed By: #### R EJEC, HEPXA #### [facility] [address] [place] [address] Residential Life Director: Norman Blake MD WBC (Bld) [#/Vol] 16.6 10*3/uL High 3.5-11.3 [facility] Comment on above: Performed By: #### R EJEC, HEPXA #### [address] [address] Residential Life Director: Norman Blake MD CBC w/ Auto Diffon 3 Erythrocyte distribution width (RBC) [Ratio] 15.6 % High 11.5-15.0 [facility] Comment on above: Order Comment: Patie nt is a hard stick. 3 Nurses have tried to do an IV. I am waiting to see if they get the IV started. 03/17/2023 22:08:47 EDT Performed By: #### 7 [id number], [id number], [id number], [id number], [id number], [id number] ####[facility] (DEFAULT)[address] [place] [address] Hematocrit (Bld) [Volume fraction] 47.0 % High 33.7-40.4 [facility] Comment on above: Order Comment: Patie nt is a hard stick. 3 Nurses have tried to do an IV. I am waiting to see if they get the IV started. 03/17/2023 22:08:47 EDT Performed By: #### 7 [id number], [id number], [id number], [id number], [id number], [id number] ####[facility] (DEFAULT)[address] [place] [address] Hemoglobin (Bld) [Mass/Vol] 14.5 g/dL Normal 11.3-15.9 [facility] Comment on above: Order Comment: Patie nt is a hard stick. 3 Nurses have tried to do an IV. I am waiting to see if they get the IV started. 03/17/2023 22:08:47 EDT Performed By: #### 7 [id number], [id number], [id number], [id number], [id number], [id number] ####[facility] (DEFAULT)[address] [place] [address] Man Diff? Auto Invalid Interpretation Code [facility] Comment on above: Order Comment: Patie nt is a hard stick. 3 Nurses have tried to do an IV. I am waiting to see if they get the IV started. 03/17/2023 22:08:47 EDT Performed By: #### 7 [id number], [id number], [id number], [id number], [id number], [id number] ####[facility] (DEFAULT)[address] [place] [address] MCH (RBC) [Entitic mass] 25 pg Normal 24-34 [facility] Comment on above: Order Comment: Patie nt is a hard stick. 3 Nurses have tried to do an IV. I am waiting to see if they get the IV started. 03/17/2023 22:08:47 EDT Performed By: #### 7 [id number], [id number], [id number], [id number], [id number], [id number] ####[facility] (DEFAULT)[address] [place] [address] MCHC (RBC) [Mass/Vol] 31 g/dL Normal 26-37 [facility] Comment on above: Order Comment: Patie nt is a hard stick. 3 Nurses have tried to do an IV. I am waiting to see if they get the IV started. 03/17/2023 22:08:47 EDT Performed By: #### 7 [id number], [id number], [id number], [id number], [id number], [id number] ####[facility] (DEFAULT)[address] [place] [address] MCV (RBC) [Entitic vol] 81 fL Normal 81-100 [facility] Comment on above: Order Comment: Patie nt is a hard stick. 3 Nurses have tried to do an IV. I am waiting to see if they get the IV started. 03/17/2023 22:08:47 EDT Performed By: #### 7 [id number], [id number], [id number], [id number], [id number], [id number] ####[facility] (DEFAULT)[address] [place] [address] Platelet 381 x10 Normal 138-427 [facility] Comment on above: Order Comment: Patie nt is a hard stick. 3 Nurses have tried to do an IV. I am waiting to see if they get the IV started. 03/17/2023 22:08:47 EDT Performed By: #### 7 [id number], [id number], [id number], [id number], [id number], [id number] ####[facility] (DEFAULT)[address] [place] [address] Platelet mean volume (Bld) [Entitic vol] 8.3 fL Normal 6.3-10.2 [facility] Comment on above: Order Comment: Patie nt is a hard stick. 3 Nurses have tried to do an IV. I am waiting to see if they get the IV started. 03/17/2023 22:08:47 EDT Performed By: #### 7 [id number], [id number], [id number], [id number], [id number], [id number] ####[facility] (DEFAULT)[address] [place] [address] RBC 5.80 x10 High 3.70-5.30 [facility] Comment on above: Order Comment: Patie nt is a hard stick. 3 Nurses have tried to do an IV. I am waiting to see if they get the IV started. 03/17/2023 22:08:47 EDT Performed By: #### 7 [id number], [id number], [id number], [id number], [id number], [id number] ####[facility] (DEFAULT)[address] [place] [address] WBC 22.0 x10 High 3.5-10.5 [facility] Comment on above: Order Comment: Patie nt is a hard stick. 3 Nurses have tried to do an IV. I am waiting to see if they get the IV started. 03/17/2023 22:08:47 EDT Result Comment: Slid e Reviewed Performed By: #### 7 [id number], [id number], [id number], [id number], [id number], [id number] ####[facility] (DEFAULT)[address] [place] [address] CBC with Diffon 03-18-2023 Abs. Basophil 0.03 k/uL Normal 0.00-0.20 [facility] Comment on above: Performed By: #### H EPXA, TROPI, CDP, BMP #### [facility] [address] [place] [address] Residential Life Director: Norman Blake MD Abs.Imm.Granulocyte 0.11 k/uL Normal 0.00-0.30 [facility] Comment on above: Performed By: #### H EPXA, TROPI, CDP, BMP #### [employer] [address] [place] [address] Residential Life Director: Norman Blake MD Abs.Neutrophil (Seg) 16.38 k/uL High 1.50-8.10 [facility] Comment on above: Performed By: #### H EPXA, TROPI, CDP, BMP #### [employer] [address] [place] [address] Residential Life Director: Norman Blake MD Basophils/100 WBC (Bld) 0 % Normal 0-2 [facility] Comment on above: Performed By: #### H EPXA, TROPI, CDP, BMP #### [employer] [address] [place] [address] Residential Life Director: Norman Blake MD Eosinophils (Bld) [#/Vol] 0.06 10*3/uL Normal 0.00-0.44 [facility] Comment on above: Performed By: #### H EPXA, TROPI, CDP, BMP #### [address] [address] Residential Life Director: Norman Blake MD Eosinophils/100 WBC (Bld) 0 % Low 1-4 [facility] Comment on above: Performed By: #### H EPXA, TROPI, CDP, BMP #### [facility] [address] [place] [address] Residential Life Director: Norman Blake MD Erythrocyte distribution width (RBC) [Ratio] 13.9 % Normal 11.8-14.4 [facility] Comment on above: Performed By: #### H EPXA, TROPI, CDP, BMP #### [facility] [address] [place] [address] Residential Life Director: Norman Blake MD Hematocrit (Bld) [Volume fraction] 36.6 % Normal 36.3-47.1 [facility] Comment on above: Performed By: #### H EPXA, TROPI, CDP, BMP #### [facility] [address] [place] [address] Residential Life Director: Norman Blake MD Hemoglobin (Bld) [Mass/Vol] 11.8 g/dL Low 11.9-15.1 [facility] Comment on above: Performed By: #### H EPXA, TROPI, CDP, BMP #### [facility] [address] [place] [address] Residential Life Director: Norman Blake MD Immature granulocytes/100 WBC (Bld) 1 % High 0 [facility] Comment on above: Performed By: #### H EPXA, TROPI, CDP, BMP #### [address] [address] Residential Life Director: Norman Blake MD Lymphocytes (Bld) [#/Vol] 2.92 10*3/uL Normal 1.10-3.70 [facility] Comment on above: Performed By: #### H EPXA, TROPI, CDP, BMP #### [address] [address] Residential Life Director: Norman Blake MD Lymphocytes/100 WBC (Bld) 14 % Low 24-43 [facility] Comment on above: Performed By: #### H EPXA, TROPI, CDP, BMP #### [address] [address] Residential Life Director: Norman Blake MD MCH (RBC) [Entitic mass] 25.4 pg Normal 25.2-33.5 [facility] Comment on above: Performed By: #### H EPXA, TROPI, CDP, BMP #### [address] [address] Residential Life Director: Norman Blake MD MCHC (RBC) [Mass/Vol] 32.2 g/dL Normal 28.4-34.8 [facility] Comment on above: Performed By: #### H EPXA, TROPI, CDP, BMP #### [address] [address] Residential Life Director: Norman Blake MD MCV (RBC) [Entitic vol] 78.7 fL Low 82.6-102.9 M [facility] Comment on above: Performed By: #### H EPXA, TROPI, CDP, BMP #### [address] [address] Residential Life Director: Norman Blake MD Monocytes (Bld) [#/Vol] 0.92 10*3/uL Normal 0.10-1.20 [facility] Comment on above: Performed By: #### H EPXA, TROPI, CDP, BMP #### [address] [address] Residential Life Director: Norman Blake MD Monocytes/100 WBC (Bld) 5 % Normal 3-12 [facility] Comment on above: Performed By: #### H EPXA, TROPI, CDP, BMP #### [address] [address] Residential Life Director: Norman Blake MD Neutrophil (Seg) 80 % High 36-65 [facility] Comment on above: Performed By: #### H EPXA, TROPI, CDP, BMP #### [address] [address] Residential Life Director: Norman Blake MD NRBC Automated 0.0 per 100 WBC Normal 0.0 [facility] Comment on above: Performed By: #### H EPXA, TROPI, CDP, BMP #### [address] [address] Residential Life Director: Norman Blake MD Platelet mean volume (Bld) [Entitic vol] 9.6 fL Normal 8.1-13.5 [facility] Comment on above: Performed By: #### H EPXA, TROPI, CDP, BMP #### [address] [address] Residential Life Director: Norman Blake MD Platelets (Bld) [#/Vol] 264 10*3/uL Normal 138-453 [facility] Comment on above: Performed By: #### H EPXA, TROPI, CDP, BMP #### [address] [address] Residential Life Director: Norman Blake MD RBC (Bld) [#/Vol] 4.65 10*6/uL Normal 3.95-5.11 [facility] Comment on above: Performed By: #### H EPXA, TROPI, CDP, BMP #### [employer] [address] [place] [address] Residential Life Director: Norman Blake MD RBC morphology finding Nom (Bld) MICROCYTOSIS PRESENT Normal [facility] Comment on above: Performed By: #### H EPXA, TROPI, CDP, BMP #### [facility] [address] [place] [address] Residential Life Director: Norman Blake MD WBC (Bld) [#/Vol] 20.4 10*3/uL High 3.5-11.3 [facility] Comment on above: Performed By: #### H EPXA, TROPI, CDP, BMP #### [employer] [address] [place] [address] Residential Life Director: Norman Blake MD CMP Standardon 03-18-2023 Anion Gap see comment Invalid Interpretation Code 5.0-19.0 [facility] Comment on above: Result Comment: Unab le to calculate Performed By: #### 5 [id number], [id number], [id number] ####[facility] (DEFAULT)[address] [place] [address] Breakpoint Chem Normal [facility] Comment on above: Performed By: #### 5 [id number], [id number], [id number] ####[facility] (DEFAULT)[address] [place] [address] eGFR Non AA >60 Invalid Interpretation Code [facility] Comment on above: Performed By: #### 5 [id number], [id number], [id number] ####[facility] (DEFAULT)[address] [place] [address] eGFR AA >60 Invalid Interpretation Code [facility] Comment on above: Performed By: #### 5 [id number], [id number], [id number] ####[facility] (DEFAULT)[address] [place] [address] Albumin [Mass/Vol] 3.8 g/dL Normal 3.5-5.0 [facility] Comment on above: Performed By: #### 5 [id number], [id number], [id number] ####[facility] (DEFAULT)[address] [place] [address] Albumin/Globulin [Mass ratio] 1.1 {ratio} Low 1.4-2.6 [facility] Comment on above: Performed By: #### 5 [id number], [id number], [id number] ####[facility] (DEFAULT)[address] [place] [address] Alk Phos 84 IU/L Normal 32-91 [facility] Comment on above: Performed By: #### 5 [id number], [id number], [id number] ####[facility] (DEFAULT)[address] [place] [address] ALT [Catalytic activity/Vol] 20.0 U/L Normal 14.0-54.0 [facility] Comment on above: Performed By: #### 5 [id number], [id number], [id number] ####[facility] (DEFAULT)[address] [place] [address] AST [Catalytic activity/Vol] 37 U/L Normal 15-41 [facility] Comment on above: Performed By: #### 5 [id number], [id number], [id number] ####[facility] (DEFAULT)[address] [place] [address] Bili Total 1.6 mg/dL High 0.3-1.2 [facility] Comment on above: Performed By: #### 5 [id number], [id number], [id number] ####[facility] (DEFAULT)[address] [place] [address] Calcium [Mass/Vol] 7.2 mg/dL Low 8.9-10.3 [facility] Comment on above: Performed By: #### 5 [id number], [id number], [id number] ####[facility] (DEFAULT)[address] [place] [address] Chloride [Moles/Vol] 104 mmol/L Normal 101-111 [facility] Comment on above: Performed By: #### 5 [id number], 9556086, [id number] ####[facility] (DEFAULT)[address] [place] [address] Creatinine [Mass/Vol] 0.92 mg/dL Normal 0.60-1.30 [facility] Comment on above: Performed By: #### 5 [id number], [id number], [id number] ####[facility] (DEFAULT)[address] [place] [address] Globulin (S) [Mass/Vol] 3.4 g/dL Normal 1.5-4.3 [facility] Comment on above: Performed By: #### 5 [id number], [id number], [id number] ####[facility] (DEFAULT)[address] [place] [address] Glucose [Mass/Vol] 419.0 mg/dL High 74.0-118.0 [facility] Comment on above: Performed By: #### 5 [id number], [id number], [id number] ####[facility] (DEFAULT)[address] [place] [address] Osmolality 275 mOsm/L Invalid Interpretation Code [facility] Comment on above: Performed By: #### 5 [id number], [id number], [id number] ####[facility] (DEFAULT)[address] [place] [address] Potassium [Moles/Vol] 4.1 mmol/L Normal 3.6-5.1 [facility] Comment on above: Performed By: #### 5 [id number], [id number], [id number] ####[facility] (DEFAULT)[address] [place] [address] Protein [Mass/Vol] 7.2 g/dL Normal 6.5-8.1 [facility] Comment on above: Performed By: #### 5 [id number], [id number], [id number] ####[facility] (DEFAULT)[address] [place] [address] Sodium [Moles/Vol] 127.0 mmol/L Low 136.0-144.0 [facility] Comment on above: Performed By: #### 5 [id number], [id number], [id number] ####[facility] (DEFAULT)[address] [place] [address] Urea nitrogen [Mass/Vol] 19 mg/dL Normal 8-26 [facility] Comment on above: Performed By: #### 5 [id number], [id number], [id number] ####[facility] (DEFAULT)[address] [place] [address] Urea nitrogen/Creatinine [Mass ratio] 20.6 mg/mg High 4.6-16.2 [facility] Comment on above: Performed By: #### 5 [id number], [id number], [id number] ####[facility] (DEFAULT)[address] [place] [address] CO2 [Moles/Vol] mmol/L Low 21-32 [facility] Comment on above: Performed By: #### 5 [id number], [id number], [id number] ####[facility] (DEFAULT)[address] [place] [address] Breakpoint Chem Normal [facility] Comment on above: Order Comment: Patie nt is a hard stick. 3 Nurses have tried to do an IV. I am waiting to see if they get the IV started. 03/17/2023 22:08:47 EDT Performed By: #### 4 [id number] #### [facility] (DEFAULT) [address] [place] [address] eGFR Non AA >60 Invalid Interpretation Code [facility] Comment on above: Order Comment: Patie nt is a hard stick. 3 Nurses have tried to do an IV. I am waiting to see if they get the IV started. 03/17/2023 22:08:47 EDT Performed By: #### 4 [id number] #### [facility] (DEFAULT) [address] [place] [address] eGFR AA >60 Invalid Interpretation Code [facility] Comment on above: Order Comment: Patie nt is a hard stick. 3 Nurses have tried to do an IV. I am waiting to see if they get the IV started. 03/17/2023 22:08:47 EDT Performed By: #### 4 [id number] #### [facility] (DEFAULT) [address] [place] [address] Albumin [Mass/Vol] 4.3 g/dL Normal 3.5-5.0 [facility] Comment on above: Order Comment: Patie nt is a hard stick. 3 Nurses have tried to do an IV. I am waiting to see if they get the IV started. 03/17/2023 22:08:47 EDT Performed By: #### 4 [id number] #### [facility] (DEFAULT) [address] [place] [address] Albumin/Globulin [Mass ratio] 1.1 {ratio} Low 1.4-2.6 [facility] Comment on above: Order Comment: Patie nt is a hard stick. 3 Nurses have tried to do an IV. I am waiting to see if they get the IV started. 03/17/2023 22:08:47 EDT Performed By: #### 4 [id number] #### [facility] (DEFAULT) [address] [place] [address] Alk Phos 93 IU/L High 32-91 [facility] Comment on above: Order Comment: Patie nt is a hard stick. 3 Nurses have tried to do an IV. I am waiting to see if they get the IV started. 03/17/2023 22:08:47 EDT Performed By: #### 4 [id number] #### [facility] (DEFAULT) [address] [place] [address] ALT [Catalytic activity/Vol] 21.0 U/L Normal 14.0-54.0 [facility] Comment on above: Order Comment: Patie nt is a hard stick. 3 Nurses have tried to do an IV. I am waiting to see if they get the IV started. 03/17/2023 22:08:47 EDT Performed By: #### 4 [id number] #### [facility] (DEFAULT) [address] [place] [address] AST [Catalytic activity/Vol] 37 U/L Normal 15-41 [facility] Comment on above: Order Comment: Patie nt is a hard stick. 3 Nurses have tried to do an IV. I am waiting to see if they get the IV started. 03/17/2023 22:08:47 EDT Performed By: #### 4 [id number] #### [facility] (DEFAULT) [address] [place] [address] Bili Total 1.7 mg/dL High 0.3-1.2 [facility] Comment on above: Order Comment: Patie nt is a hard stick. 3 Nurses have tried to do an IV. I am waiting to see if they get the IV started. 03/17/2023 22:08:47 EDT Performed By: #### 4 [id number] #### [facility] (DEFAULT) [address] [place] [address] Calcium [Mass/Vol] 7.7 mg/dL Low 8.9-10.3 [facility] Comment on above: Order Comment: Patie nt is a hard stick. 3 Nurses have tried to do an IV. I am waiting to see if they get the IV started. 03/17/2023 22:08:47 EDT Performed By: #### 4 [id number] #### [facility] (DEFAULT) [address] [place] [address] Chloride [Moles/Vol] 99 mmol/L Low 101-111 [facility] Comment on above: Order Comment: Patie nt is a hard stick. 3 Nurses have tried to do an IV. I am waiting to see if they get the IV started. 03/17/2023 22:08:47 EDT Performed By: #### 4 [id number] #### [facility] (DEFAULT) [address] [place] [address] Creatinine [Mass/Vol] 1.01 mg/dL Normal 0.60-1.30 [facility] Comment on above: Order Comment: Patie nt is a hard stick. 3 Nurses have tried to do an IV. I am waiting to see if they get the IV started. 03/17/2023 22:08:47 EDT Performed By: #### 4 [id number] #### [facility] (DEFAULT) [address] [place] [address] Globulin (S) [Mass/Vol] 3.7 g/dL Normal 1.5-4.3 [facility] Comment on above: Order Comment: Patie nt is a hard stick. 3 Nurses have tried to do an IV. I am waiting to see if they get the IV started. 03/17/2023 22:08:47 EDT Performed By: #### 4 [id number] #### [facility] (DEFAULT) [address] [place] [address] Glucose [Mass/Vol] 455.0 mg/dL High 74.0-118.0 [facility] Comment on above: Order Comment: Patie nt is a hard stick. 3 Nurses have tried to do an IV. I am waiting to see if they get the IV started. 03/17/2023 22:08:47 EDT Performed By: #### 4 [id number] #### [facility] (DEFAULT) [address] [place] [address] Osmolality 272 mOsm/L Invalid Interpretation Code [facility] Comment on above: Order Comment: Patie nt is a hard stick. 3 Nurses have tried to do an IV. I am waiting to see if they get the IV started. 03/17/2023 22:08:47 EDT Performed By: #### 4 [id number] #### [facility] (DEFAULT) [address] [place] [address] Protein [Mass/Vol] 8.0 g/dL Normal 6.5-8.1 [facility] Comment on above: Order Comment: Patie nt is a hard stick. 3 Nurses have tried to do an IV. I am waiting to see if they get the IV started. 03/17/2023 22:08:47 EDT Performed By: #### 4 [id number] #### [facility] (DEFAULT) [address] [place] [address]76 Sodium [Moles/Vol] 125.0 mmol/L Low 136.0-144.0 [facility] Comment on above: Order Comment: Patie nt is a hard stick. 3 Nurses have tried to do an IV. I am waiting to see if they get the IV started. 03/17/2023 22:08:47 EDT Performed By: #### 4 [id number] #### [facility] (DEFAULT) [address] [place] [address] Urea nitrogen [Mass/Vol] 16 mg/dL Normal 8-26 [facility] Comment on above: Order Comment: Patie nt is a hard stick. 3 Nurses have tried to do an IV. I am waiting to see if they get the IV started. 03/17/2023 22:08:47 EDT Performed By: #### 4 [id number] #### [facility] (DEFAULT) [address] [place] [address] Urea nitrogen/Creatinine [Mass ratio] 15.8 mg/mg Normal 4.6-16.2 [facility] Comment on above: Order Comment: Patie nt is a hard stick. 3 Nurses have tried to do an IV. I am waiting to see if they get the IV started. 03/17/2023 22:08:47 EDT Performed By: #### 4 [id number] #### [facility] (DEFAULT) [address] [place] [address] 48266 Potassium [Moles/Vol] 4.6 mmol/L Normal 3.6-5.1 [facility] Comment on above: Order Comment: Patie nt is a hard stick. 3 Nurses have tried to do an IV. I am waiting to see if they get the IV started. 03/17/2023 22:08:47 EDT Result Comment: Delt a check reviewed with RN Performed By: #### 4 [id number] #### [facility] (DEFAULT) [address] [place] [address] 27781 CO2 [Moles/Vol] mmol/L Low 21-32 [facility] Comment on above: Order Comment: Patie nt is a hard stick. 3 Nurses have tried to do an IV. I am waiting to see if they get the IV started. 03/17/2023 22:08:47 EDT Result Comment: Resu lts Verified by Repeat Analysis Performed By: #### 4 [id number] #### [facility] (DEFAULT) [address] [place] [address] CHEST PULMONARY EMBOLISM W CONTRASTon 09-19-2023 [...] MD 03/18/23 Edited Result - FINAL Normal [facility] Calcium, Ionicon 03-18-2023 Calcium [Moles/Vol] 1.18 mmol/L Normal 1.13-1.33 [facility] Comment on above: Performed By: #### Jam RODAS IOCAL #### [employer] [address] [place], [place] [id number] Residential Life Director: Norman Blake MD D-Dimer Teston 03-18-2023 D-Dimer Test 0.60 ug/mL FEU High 0.00-0.57 [facility] Comment on above: Result Comment: When combined [...] Performed By: #### Jam RODAS IOCAL #### [employer] [address] [place], [place] [id number] Residential Life Director: Norman Blake MD ED Clinical Summaryon 2022 ED Clinical Summary [facility] Emergency Department [address] [place] [address] ED Clinical Summary PERSON INFORMATION Name: TASHA, ALLEX N Age: 27 Years Sex: FEMALE : 1995 MRN: Acct#: Visit Reason: Chest pain; SOB, CHEST PAIN Arrival: 03/17/2023 20:58:55 Discharge: 03/18/2023 03:03:00 LOS: 000 06:05 Check In: 03/17/2023 20:58:55 Checkout:03/18/2023 03:03:00 Address: [address] [facility] [address] PCP: ARCADIO IGLESIAS PROVIDER INFORMATION Provider Role [...] 0 Refill(s) clif (more content not included)... [facility] ED Note - Otheron 03-18-2023 ED Note - Other paging Assembly Person through [facility] for transfer [Electronically Signed on: 03/18/2023 00:54 EDT] Usha Angel [Verified on: 03/18/2023 00:54 EDT] Usha Angel Assembly Person called back from [facility], Dr. Valdes retuned call, on phone with Dr. Johnson-[phone] [Electronically Signed on: 03/18/2023 01:00 EDT] Usha Angel [facility] ED Patient Education Noteon 03-18-2023 ED Patient Education Note Education Materials [facility] ED Patient Summaryon 023 ED Patient Summary [facility] - Emergency Department [address] [place] [address] PATIENT DISCHARGE INSTRUCTIONS Patient Information Name: DOUGLAS CORDOVA Age: 27 Years Date of : 1995 [facility]: [id number] Reason For Visit: Chest pain; SOB, CHEST PAIN Arrival Time: 03/17/2023 20:58:55 Primary Care Physician: ARCADIO IGLESIAS Attending Physician: Linn Johnson DO Comment: Visit Diagnosis: Diagnoses This Visit Anxiety (F41.9) Chest pain ([id number]) COVID-19 (U07.1) DKA (diabetic ketoacidosis) (E11.10) The Pharmacy at [facility] is open Friday through Friday from [...] alcohol and/or drug addiction problems; contact the [facility] 20/01 Crisis Hotline -text 4hope to [phone]. [...] and treatment you received today in the [facility] Emergency Department were for an urgent problem and are not intended as complete care. It is important for you to follow up with a doctor, nurse practitioner, or physician?s bankruptcy assistant for ongoing care. If your symptoms [...] so we can reach you if necessary. [facility] Emergency Department has provided you with a complete list of medications post discharge. Please inform your primary care sales representative/provider of your visit and for further instruction [...] a day. Durable Medical Equipment for Prescription (THREAT STREAM DASH PODS (GEN 4) 5PK) change q [...] better. Usual (more content not included)... Normal [facility] Ethanol.on 03-18-2023 Ethanol Level <5.0 Normal 0.0-5.0 [facility] Comment [...] 03/17/2023 22:18:48 EDT Performed By: #### 4 [id number] #### [facility] (DEFAULT) [address] [place] [address] Hemoglobin A1Con 03-18-2023 Glucose [Mass/Vol] 369 mg/dL Normal [facility] Comment on above: Result Comment: The ADA and AACC recommend providing the estimated average glucose result to permit better patient understanding of their HBA1c result. Performed By: #### H EPXA TROPI, CDP, BMP #### [employer] [address] [place] [address] [id number] Residential Life Director: Norman Blake MD HbA1c (Bld) [Mass fraction] 14.5 % High 4.0-6.0 [facility] Comment on above: Performed By: #### H EPXA TROPI CDP, BMP #### [employer] [address] [place] [address] [phone] Residential Life Director: Norman Blake MD Heparin Anti-Xaon 03-18-2023 Heparin Anti-Xa <0.10 Normal [facility] Comment on above: Performed By: #### Jam RODAS, IOCAL #### [facility] [address] [place] [address] Residential Life Director: Norman Blake MD Heparin Anti-Xa <0.10 Normal [facility] Comment on above: Performed By: #### R EJEC, HEPXA #### [facility] [address] [place] [address] Residential Life Director: Norman Blake MD Heparin Anti-Xa <0.10 Normal [facility] Comment on above: Performed By: #### R EJEC, HEPXA #### [facility] [address] [place] [address] Residential Life Director: Norman Blake MD Ketone Serumon 03-18-2023 Ketone Serum Small Normal Negative [facility] Comment on above: Performed By: #### 6 [id number] ####[facility] (DEFAULT)[address] [place] [address] MRSA, DNA, Nasalon 3 Specimen Description .NASAL SWAB Normal [facility] Comment on above: Performed By: #### Jam RODAS IOCAL #### [facility] [address] [place] [address] Residential Life Director: Norman Blake MD Magnesiumon 03-18-2023 Magnesium [Mass/Vol] 1.9 mg/dL Normal 1.6-2.6 [facility] Comment on above: Performed By: #### Jam RODAS, IOCAL #### [facility] [address] [place] [address] Residential Life Director: Norman Blake MD Magnesium [Mass/Vol] 2.2 mg/dL Normal 1.6-2.6 [facility] Comment on above: Performed By: #### R EJEC, HEPXA #### [facility] [address] [place] [address] Residential Life Director: Norman Blake MD Magnesium [Mass/Vol] 2.2 mg/dL Normal 1.6-2.6 [facility] Comment on above: Performed By: #### R YURI, HEPXA #### [facility] [address] [place] [address] [phone] Residential Life Director: Norman Blake MD Magnesium [Mass/Vol] 1.6 mg/dL Normal 1.6-2.6 [facility] Comment on above: Performed By: #### D CLARK IOCAL #### [facility] [address] [place] [address] [id number] Residential Life Director: Norman Blake MD Myoglobinon 03-18-2023 Myoglobin [Mass/Vol] 288.6 ng/mL High 14.3-65.8 [facility] Comment on above: Performed By: #### 5 [id number], [id number], [id number] ####[facility] (DEFAULT)[address] [place] [address] PTon 03-18-2023 INR Coag (PPP) [Relative time] 1.1 {INR} Normal [facility] Comment on above: Result Comment: Therapeutic Range: Moderate Anticoagulant Intensity: INR = 2.0-3.0 High Anticoagulant Intensity: INR = 2.5-3.5 Performed By: #### Jose WELCH, HEPXA #### [facility] [address] [place] [address] [phone] Residential Life Director: Norman Blake MD PT Coag (PPP) [Time] 14.1 s Normal 11.7-14.9 [facility] Comment on above: Performed By: #### R EJANNA, HEPXA #### [facility] [address] [place] [address] [phone] Residential Life Director: Norman Blake MD Phosphorus, Inorg.on 023 Phosphorus, Inorg. 0.4 mg/dL Critically low 2.6-4.5 [facility] Comment on above: Performed By: #### D CLARK, IOCAL #### [employer] [address] [place] [address] Residential Life Director: Norman Blake MD Phosphorus, Inorg. 0.4 mg/dL Critically low 2.6-4.5 [facility] Comment on above: Result Comment: TEST CONFIRMED Performed By: #### R EJEC, HEPXA #### [employer] [address] [place] [address] Residential Life Director: Norman Blake MD Phosphorus, Inorg. 0.9 mg/dL Critically low 2.6-4.5 [facility] Comment on above: Performed By: #### D CLARK, IOCAL #### [employer] [address] [place] [address] Residential Life Director: Norman Blake MD Phosphorus, Inorg. 1.2 mg/dL Low 2.6-4.5 [facility] Comment on above: Performed By: #### H EPXA, TROPI, CDP, BMP #### [employer] [address] [place] [address] Residential Life Director: Norman Blake MD Test Serum 1 Preg Serum Internal Control OK [facility] Comment on above: Order Comment: Patie nt is a hard stick. 3 Nurses have tried to do an IV. I am waiting to see if they get the IV started. 03/17/2023 22:08:47 EDT Performed By: #### 7 [id number], [id number], [id number], [id number], [id number], [id number] ####[facility] (DEFAULT)[address] [place] [address] Test Serum Qual Negative [facility] Comment on above: Order Comment: Patie nt is a hard stick. 3 Nurses have tried to do an IV. I am waiting to see if they get the IV started. 03/17/2023 22:08:47 EDT Performed By: #### 7 [id number], [id number], [id number], [id number], [id number], [id number] ####[facility] (DEFAULT)[address] [place] [address] 14072 Salicylateon 03-18-2023 Salicylate Lvl <4.0 Normal 0.0-30.0 [facility] Comment on above: Performed By: #### 4 [id number] #### [facility] (DEFAULT) [address] [place] [address] 70341 Specimen Rejectionon 023 Reason for rejection Unable to perform testing: Specimen contaminated. Normal [facility] Comment on above: Performed By: #### R EJEC, HEPXA #### [facility] [address] [place] [address] [phone] Residential Life Director: Norman Blake MD Source of sample .BLOOD Normal [facility] Comment on above: Performed By: #### R EJEC, HEPXA #### [facility] [address] [place] [address] [phone] Residential Life Director: Norman Blake MD Test ordered TROPI MG AUDRA BMP Normal [facility] Comment on above: Performed By: #### R EJEC, HEPXA #### [address] [address] Residential Life Director: Norman Blake MD TnI HSon 03-18-2023 Troponin I High Sensitivity 5176.9 pg/mL Critically abnormal <=15.0 [facility] Comment on above: Result Comment: Crit ical result TNIHS 5176.9 pg/mL called to and read back by Nora Bliss RN at 18-Mar-2023 01:30 by CAMRON_[email or web address]. Performed By: #### 5 [id number], [id number], [id number] ####[facility] (DEFAULT)[address] [place] [address] 24379 Troponin I High Sensitivity 3869.7 pg/mL Critically abnormal <=15.0 [facility] Comment [...] 23:51 by Isaiah. Performed By: #### 4 [id number] #### [facility] (DEFAULT) [address] [place] [address] Transfer Noteon 03-18-2023 Transfer Note Rm assignment [facility] 3008 bed 1 report # [phone] [Electronically Signed on: 03/18/2023 02:25 EDT] Usha Angel [Verified on: 03/18/2023 02:25 EDT] StanleyUsha berry [facility] Transfer Note Complete ED chart sent with patient. CD and med list sent w. patient to Hospital, [facility] [Electronically Signed on: 03/18/2023 01:47 EDT] Usha Angel [Verified on: 03/18/2023 01:47 EDT] Usha Angel [facility] Transfer Note [id number] [facility] [id number] [facility], Spoke to Diane and she stated that they are unable to take patient do to her being in [place]. Will try other transport. [Electronically Signed on: 03/18/2023 01:11 EDT] Karena Angelah [Verified on: 03/18/2023 01:11 EDT] Stanley Usha Called and [facility] 0119 [Electronically Signed on: 03/18/2023 01:19 EDT] Stanley [facility] Transfer Note Contacted transfer line through [facility], [facility] [Electronically Signed on: 03/18/2023 00:21 EDT] Usha Angel [Verified on: 03/18/2023 00:21 EDT] Usha Angel Assembly Person called back from [facility], on the phone with Dr. Johnson [phone] [Electronically Signed on: 03/18/2023 00:32 EDT] Stanley [facility] Triage Panel 12on 03-18-2023 Triage Internal Control Pass [facility] Comment on above: Performed By: #### 6 [id number], [id number], [id number], [id number] ####[facility] (DEFAULT)[address] [place] [address] 36035 U Amph Scr Negative Normal [facility] Comment on above: Performed By: #### 6 108086, [id number], [id number], [id number] ####[facility] (DEFAULT)[address] [place] [address] 77540 U Landy Scr Negative Normal [facility] Comment on above: Performed By: #### 6 331357, [id number], [id number], [id number] ####[facility] (DEFAULT)[address] [place] [address] 20151 U Benzodia Scr Negative Normal [facility] Comment on above: Performed By: #### 6 928866, [id number], [id number], [id number] ####[facility] (DEFAULT)[address] [place] [address] 70868 U Cannab Scrn Negative [facility] Comment on above: Performed By: #### 6 481745, [id number], [id number], [id number] ####[facility] (DEFAULT)[address] [place] [address] 01458 U Cocaine Scr Negative [facility] Comment on above: Performed By: #### 6 555836, [id number], [id number], [id number] ####[facility] (DEFAULT)[address] [place] [address] 42253 U Methadone Scr Negative Normal [facility] Comment on above: Performed By: #### 6 583343, [id number], [id number], [id number] ####[facility] (DEFAULT)[address] [place] [address] 48942 U Methamp Scrn Negative [facility] Comment on above: Performed By: #### 6 828341, [id number], [id number], [id number] ####[facility] (DEFAULT)[address] [place] [address] 90111 U Opiate Scr Negative Normal [facility] Comment on above: Performed By: #### 6 090520, [id number], [id number], [id number] ####[facility] (DEFAULT)[address] [place] [address] U Oxycod Scr Negative Normal [facility] Comment on above: Performed By: #### 6 843865, [id number], [id number], [id number] ####[facility] (DEFAULT)[address] [place] [address] U Phencyclidine Scr Negative Normal [facility] Comment on above: Performed By: #### 6 117176, [id number], [id number], [id number] ####[facility] (DEFAULT)[address] [place] [address] 36341 U Propoxyphene Scr Negative Normal [facility] Comment on above: Performed By: #### 6 978761, [id number], [id number], [id number] ####[facility] (DEFAULT)[address] [place] [address] 47282 U Tricyclic Antidepress Scr Negative Normal [facility] Comment on above: Result Comment: Resu [...] PPX Propoxyphene (Norpropoxyphene): 300 ng/mL THC Cannabinoids (17-pyd-4-carboxy- -THC): 50 ng/mL TCA Tricyclic-Antidepressants (Desipramine): 300 ng/mL Performed By: #### 6 693672, [id number], [id number], [id number] ####[facility] (DEFAULT)[address] [place] [address] Urine Source Voided Normal [facility] Comment on above: Performed By: #### 6 150527, [id number], [id number], [id number] ####[facility] (DEFAULT)[address] [place] [address] Troponinon 03-18-2023 Troponin, High Sens 851 ng/L Critically high 0-14 [facility] Comment on above: Result Comment: High Sensitivity Troponin values cannot be compared with other Troponin methodologies. Previous Alert Value Reported Performed By: #### D CLARK, IOCAL #### [facility] [address] [place] [address] Residential Life Director: Norman Blake MD Troponin, High Sens 860 ng/L Critically high 0-14 [facility] Comment on above: Result Comment: High Sensitivity Troponin values cannot be compared with other Troponin methodologies. Previous Alert Value Reported Performed By: #### R EJEC, HEPXA #### [employer] [address] [place] [address] Residential Life Director: Norman Blake MD Troponin, High Sens 709 ng/L Critically high 0-14 [facility] Comment on above: Result Comment: High Sensitivity Troponin values cannot be compared with other Troponin methodologies. Previous Alert Value Reported Performed By: #### H EPXA, TROPI, CDP, BMP #### [facility] [place] [address] Residential Life Director: Norman Blake MD Troponin, High Sens 700 ng/L Critically high 0-14 [facility] Comment on above: Result Comment: High Sensitivity Troponin values cannot be compared with other Troponin methodologies. Previous Alert Value Reported Performed By: #### D CLARK, IOCAL #### [facility] [address] [place] [address] Residential Life Director: Norman Blake MD Troponin, High Sens 638 ng/L Critically high 0-14 [facility] Comment on above: Result Comment: High Sensitivity Troponin values cannot be compared with other Troponin methodologies. Performed By: #### H EPXA, TROPI, CDP, BMP #### [employer] [address] [place] [address] Residential Life Director: Norman Blake MD UA [id number] 03-18-2023 UA Amorph. 1+ [facility] Comment on above: Order Comment: Urina lysis Microscopic order added on by [employer] Expert Rules system. Performed By: #### 6 624608, [id number], [id number], [id number] ####[facility] (DEFAULT)[address] [place] [address] UA Bacteria 4+ [facility] Comment on above: Order Comment: Urina lysis Microscopic order added on by [employer] system. Performed By: #### 6 726361, [id number], [id number], [id number] ####[facility] (DEFAULT)[address] [place] [address] UA RBC 5-10 [facility] Comment on above: Order Comment: Urina lysis Microscopic order added on by [employer] system. Performed By: #### 6 976348, [id number], [id number], [id number] ####[facility] (DEFAULT)[address] [place] [address] UA Squam Epi Many [facility] Comment on above: Order Comment: Urina lysis Microscopic order added on by [employer] system. Performed By: #### 6 665310, [id number], [id number], [id number] ####[facility] (DEFAULT)[address] [place] [address] UA WBC 0-2 [facility] Comment on above: Order Comment: Urina lysis Microscopic order added on by [employer] system. Performed By: #### 6 439189, [id number], [id number], [id number] ####[facility] (DEFAULT)[address] [place] [address] UA w Culture if Ind Standard on 03-18-2023 Breakpoint UA [facility] Comment on above: Performed By: #### 6 732347, [id number], [id number], [id number] ####[facility] (DEFAULT)[address] [place] [address] Color (U) Yellow [facility] Comment on above: Performed By: #### 6 587760, [id number], [id number], [id number] ####[facility] (DEFAULT)[address] [place] [address] Culture? Indicated Invalid Interpretation Code [facility] Comment on above: Result Comment: Resu lt created by rule GL_MAGR_ADD_UA_CULT Performed By: #### 6 059123, [id number], [id number], [id number] ####[facility] (DEFAULT)[address] [place] [address] Glucose (U) [Mass/Vol] 500 mg/dL Normal [facility] Comment on above: Performed By: #### 6 306208, [id number], [id number], [id number] ####[facility] (DEFAULT)[address] [place] [address] Ketones Ql (U) >=80 [facility] Comment on above: Performed By: #### 6 129851, [id number], [id number], [id number] ####[facility] (DEFAULT)[address] [place] [address] Micro? Indicated Invalid Interpretation Code [facility] Comment on above: Result Comment: Resu lt created by rule GL_MAGR_ADD_UA_MICRO Result created by rule GL_MAGR_ADD_UA_MICRO Performed By: #### 6 338374, [id number], [id number], [id number] ####[facility] (DEFAULT)[address] [place] [address] UA Bilirubin Negative [facility] Comment on above: Performed By: #### 6 761594, [id number], 92474551, [id number] ####[facility] (DEFAULT)[address] [place] [address] 17988 UA Blood LARGE Abnormal NEGATIVE [facility] Comment on above: Performed By: #### 6 786631, [id number], [id number], [id number] ####[facility] (DEFAULT)[address] [place] [address] 42317 UA Clarity SL CLOUDY Abnormal CLEAR [facility] Comment on above: Performed By: #### 6 070864, [id number], [id number], [id number] ####[facility] (DEFAULT)[address] [place] [address] 19867 UA Leuk Est Negative Normal NEGATIVE [facility] Comment on above: Performed By: #### 6 769437, [id number], 95593035, [id number] ####[facility] (DEFAULT)[address] [place] [address] 08498 UA Nitrite Negative Normal NEGATIVE [facility] Comment on above: Performed By: #### 6 828423, [id number], [id number], [id number] ####[facility] (DEFAULT)[address] [place] [address] 52202 UA pH 6.0 Normal 5-8 [facility] Comment on above: Performed By: #### 6 593210, [id number], [id number], [id number] ####[facility] (DEFAULT)[address] [place] [address] 57620 UA Protein 30 Abnormal NEGATIVE [facility] Comment on above: Performed By: #### 6 109169, [id number], [id number], [id number] ####[facility] (DEFAULT)[address] [place] [address] 93650 UA Spec Grav >=1.030 Normal 1.001-1.035 [facility] Comment on above: Performed By: #### 6 674081, [id number], [id number], [id number] ####[facility] (DEFAULT)[address] [place] [address] UA Urobilinogen 0.2 mg/dL Normal 0.2-1.0 [facility] Comment on above: Performed By: #### 6 [id number], [id number] ####[facility] (DEFAULT)[address] [place] [address] Urine Source Voided Normal [facility] Comment on above: Performed By: #### 6 [id number], [id number] ####[facility] (DEFAULT)[address] [place] [address] UA w/Reflex Cultureon 2022 Bilirubin, SemiQt,Ur Negative Normal NEG [facility] Comment on above: Performed By: #### U AX #### [address] [address] Residential Life Director: Norman Blake MD Blood, Urine LARGE Abnormal NEG [facility] Comment on above: Performed By: #### U AX #### [address] [address] Residential Life Director: Norman Blake MD Clarity (U) Cloudy Abnormal CLEAR [facility] Comment on above: Performed By: #### U AX #### [address] [address] Residential Life Director: Norman Blake MD Color (U) Yellow Normal YEL [facility] Comment on above: Performed By: #### U AX #### [address] [address] Residential Life Director: Norman Blake MD Glucose Ql (U) 3+ mg/dL Abnormal NEG [facility] Comment on above: Performed By: #### U AX #### [address] [address] Residential Life Director: Norman Blake MD Ketones Ql (U) LARGE Abnormal NEG [facility] Comment on above: Performed By: #### U AX #### [address] [address] Residential Life Director: Norman Blake MD Leukocyte esterase Test strip Ql (U) Negative Normal NEG [facility] Comment on above: Performed By: #### U AX #### [address] [address] Residential Life Director: Norman Blake MD Nitrite,Ur Negative Normal NEG [facility] Comment on above: Performed By: #### U AX #### [address] [address] Residential Life Director: Norman Blake MD PH,Ur 5.5 Normal 5.0-8.0 [facility] Comment on above: Performed By: #### U AX #### [address] [address] Residential Life Director: Norman Blake MD Protein Ql (U) 2+ mg/dL Abnormal NEG [facility] Comment on above: Performed By: #### U AX #### [address] [address] Residential Life Director: Norman Blake MD Spec. [place],Ur 1.028 Normal 1.005-1.030 [facility] Comment on above: Performed By: #### U AX #### [address] [address] Residential Life Director: Norman Blake MD Urobilinogen,Ur Normal Normal 0.0-1.0 [facility] Comment on above: Performed By: #### U AX #### [address] [address] Residential Life Director: Norman Blake MD Venous Blood Gaseson 023 Body Temp. 37.0 Normal [facility] Comment on above: Performed By: #### R EJEC, HEPXA #### [address] [address] Residential Life Director: Norman Blake MD Carboxy Hgb 0.7 % Normal 0-5 [facility] Comment on above: Result Comment: Reference Range: Non-Smokers 0-2% Average Smoker 2-4% Heavy Smoker <10% Performed By: #### R EJEC, HEPXA #### [address] [address] Residential Life Director: Norman Blake MD FIO2 INFORMATION NOT PROVIDED Normal [facility] Comment on above: Performed By: #### R EJEC, HEPXA #### [address] [address] Residential Life Director: Norman Blake MD HCO3 (Bld) [Moles/Vol] 17.2 mmol/L Low 24-30 M [facility] Comment on above: Performed By: #### R EJEC, HEPXA #### [address] [address] Residential Life Director: Norman Blake MD Negative Base Excess 7.0 mmol/L High 0.0-2.0 [facility] Comment on above: Performed By: #### R EJEC, HEPXA #### [address] [address] Residential Life Director: Norman Blake MD Oxygen saturation in Blood 90.7 % High 60.0-85.0 [facility] Comment on above: Performed By: #### R EJEC, HEPXA #### [address] [address] Residential Life Director: Norman Blake MD pCO2 32.2 mm Hg Low 39-55 [facility] Comment on above: Performed By: #### R EJEC, HEPXA #### [address] [address] Residential Life Director: Norman Blake MD pH (Bld) 7.348 [pH] Normal 7.320-7.420 [facility] Comment on above: Performed By: #### R EJEC, HEPXA #### [facility] [address] [place] [address] Residential Life Director: Norman Blake MD pO2 55.1 mm Hg High 30-50 [facility] Comment on above: Performed By: #### R EJEC, HEPXA #### [facility] [address] [place] [address] Residential Life Director: Norman Blake MD XR CHEST PORTABLEon 03-18-20 [...] Prieto Engel MD 03/18/23 Final result Normal [facility] XR Chest 1 View Frontalon XR Chest [...] Wang DO 03/18/23 8:44 am Technologist: MADHAVI [facility] Consent Formson 03-17-2023 Consent Forms [id number] #[id number] [facility] ED Note - Physicianon 2022 ED Note - Physician Patient: DOUGLAS CORDOVA [facility]: [id number] Age: 27 years Sex: FEMALE : 1995 [...] Social History Medical history: Resolved Diabetes mellitus ([id number]): Resolved. . Surgical history: No active procedure [...] Lab Collect T (more content not included)... [facility] Telemetry Stripson 3 Telemetry Strips [id number] #1.00OTGTIFF [facility] .Auto Diff 1on 03-16-2023 Auto Irwin % 3 % Normal 12 [facility] Comment on above: Performed By: #### 4 [id number] #### [facility] (DEFAULT) [address] [place] [address] Baso Abs# 0.1 x10 Normal 0.0-0.2 [facility] Comment on above: Performed By: #### 4 [id number] #### [facility] (DEFAULT) [address] [place] [address] Basophils/100 WBC (Bld) 1.3 % Normal 0.2-2.0 [facility] Comment on above: Performed By: #### 4 [id number] #### [facility] (DEFAULT) [address] [place] [address] Eos Abs# 0.0 x10 Normal 0.0-0.4 [facility] Comment on above: Performed By: #### 4 [id number] #### [facility] (DEFAULT) [address] [place] [address] Eosinophils/100 WBC (Bld) 0.0 % Low 0.9-4.0 [facility] Comment on above: Performed By: #### 4 [id number] #### [facility] (DEFAULT) [address] [place] [address] Lymph Abs# 0.9 x10 Low 1.3-2.9 [facility] Comment on above: Performed By: #### 4 [id number] #### [facility] (DEFAULT) [address] [place] [address] Lymphocytes/100 WBC (Bld) 11 % Low 14-48 [facility] Comment on above: Performed By: #### 4 [id number] #### [facility] (DEFAULT) [address] [place] [address] Irwin Abs# 0.2 x10 Normal 0.0-0.8 [facility] Comment on above: Performed By: #### 4 [id number] #### [facility] (DEFAULT) [address] [place] [address] Neut Abs# 6.6 x10 Normal 1.5-9.2 [facility] Comment on above: Performed By: #### 4 [id number] #### [facility] (DEFAULT) [address] [place] [address] Neutrophils/100 WBC (Bld) 85 % Normal 44-88 [facility] Comment on above: Performed By: #### 4 [id number] #### [facility] (DEFAULT) [address] [place] [address] .QC SARS-CoV-2 (COVID-19)/Fl u/RSV (GeneXpert)on 03-16-2023 Internal Control Pass Normal [facility] Comment on above: Order Comment: Order ed by Discern. [[id number]] Performed By: #### 7 [id number], [id number] #### [facility] (DEFAULT) [address] [place] [address] Acetone Qlon 03-16-2023 Acetone SMALL Normal [facility] Comment on above: Performed By: #### 6 [id number] ####[facility] (DEFAULT)[address] [place] [address] Arterial Blood Gas Standardo n 03-16-2023 Base Excess Art -21.7 mmol/L Low -3.3-2.3 [facility] Comment on above: Performed By: #### 4 [id number] #### [facility] (DEFAULT) [address] [place] [address] Breakpoint Hemo Normal [facility] Comment on above: Performed By: #### 4 [id number] #### [facility] (DEFAULT) [address] [place] [address] Device Room Air Normal [facility] Comment on above: Performed By: #### 4 [id number] #### [facility] (DEFAULT) [address] [place] [address] Fio2 Art 21.0 % Normal 21.0-100.0 [facility] Comment on above: Performed By: #### 4 [id number] #### [facility] (DEFAULT) [address] [place] [address] HCO3 (Bld) [Moles/Vol] 6.0 mmol/L Low 22.0-27.0 [facility] Comment on above: Performed By: #### 4 [id number] #### [facility] (DEFAULT) [address] [place] [address] Oxygen saturation in Blood 97.9 % Normal 95.0-100.0 [facility] Comment on above: Performed By: #### 4 [id number] #### [facility] (DEFAULT) [address] [place] [address] pCO2 Art 19 mmHg Critically abnormal 34-44 [facility] Comment on above: Result Comment: Resu lts handed to Dr Gonzalez by on 03/16/23 @ 1045 Performed By: #### 4 [id number] #### [facility] (DEFAULT) [address] [place] [address] pH Art 7.11 Critically abnormal 7.37-7.44 [facility] Comment on above: Result Comment: Resu lts handed to Dr Gonzalez by RUTH on 03/16/23 @ 1045, RBD Performed By: #### 4 [id number] #### [facility] (DEFAULT) [address] [place] [address] pO2 Art 208 mmHg High 75-100 [facility] Comment on above: Performed By: #### 4 [id number] #### [facility] (DEFAULT) [address] [place] [address] Puncture Site Right Brachial Normal [facility] Comment on above: Performed By: #### 4 [id number] #### [facility] (DEFAULT) [address] [place] [address] Rate: 18 Invalid Interpretation Code [facility] Comment on above: Performed By: #### 4 [id number] #### [facility] (DEFAULT) [address] [place] [address] BMP Standardon 03-16-2023 eGFR Non AA >60 Invalid Interpretation Code [facility] Comment on above: Order Comment: While on Insulin Drip Performed By: #### 4 [id number] #### [facility] (DEFAULT) [address] [place] [address] eGFR AA >60 Invalid Interpretation Code [facility] Comment on above: Order Comment: While on Insulin Drip Performed By: #### 4 [id number] #### [facility] (DEFAULT) [address] [place] [address] Anion gap [Moles/Vol] 14.8 mmol/L Normal 5.0-19.0 [facility] Comment on above: Order Comment: While on Insulin Drip Performed By: #### 4 [id number] #### [facility] (DEFAULT) [address] [place] [address] Calcium [Mass/Vol] 7.7 mg/dL Low 8.9-10.3 [facility] Comment on above: Order Comment: While on Insulin Drip Performed By: #### 4 [id number] #### [facility] (DEFAULT) [address] [place] [address] Chloride [Moles/Vol] 108 mmol/L Normal 101-111 [facility] Comment on above: Order Comment: While on Insulin Drip Performed By: #### 4 [id number] #### [facility] (DEFAULT) [address] [place] [address] CO2 [Moles/Vol] 14 mmol/L Low 21-32 [facility] Comment on above: Order Comment: While on Insulin Drip Performed By: #### 4 [id number] #### [facility] (DEFAULT) [address] [place] [address] Creatinine [Mass/Vol] 0.69 mg/dL Normal 0.60-1.30 [facility] Comment on above: Order Comment: While on Insulin Drip Performed By: #### 4 [id number] #### [facility] (DEFAULT) [address] [place] [address] Glucose [Mass/Vol] 295.0 mg/dL High 74.0-118.0 [facility] Comment on above: Order Comment: While on Insulin Drip Performed By: #### 4 [id number] #### [facility] (DEFAULT) [address] [place] [address] Osmolality 278 mOsm/L Invalid Interpretation Code [facility] Comment on above: Order Comment: While on Insulin Drip Performed By: #### 4 [id number] #### [facility] (DEFAULT) [address] [place] [address] Potassium [Moles/Vol] 3.8 mmol/L Normal 3.6-5.1 [facility] Comment on above: Order Comment: While on Insulin Drip Result Comment: Pota ssium Therapy Performed By: #### 4 [id number] #### [facility] (DEFAULT) [address] [place] [address] Sodium [Moles/Vol] 133.0 mmol/L Low 136.0-144.0 [facility] Comment on above: Order Comment: While on Insulin Drip Performed By: #### 4 [id number] #### [facility] (DEFAULT) [address] [place] [address] Urea nitrogen [Mass/Vol] 16 mg/dL Normal 8-26 [facility] Comment on above: Order Comment: While on Insulin Drip Performed By: #### 4 [id number] #### [facility] (DEFAULT) [address] [place] [address] Urea nitrogen/Creatinine [Mass ratio] 23.1 mg/mg High 4.6-16.2 [facility] Comment on above: Order Comment: While on Insulin Drip Performed By: #### 4 [id number] #### [facility] (DEFAULT) [address] [place] [address] CBC w/ Auto Diffon 3 Erythrocyte distribution width (RBC) [Ratio] 15.4 % High 11.5-15.0 [facility] Comment on above: Performed By: #### 4 [id number] #### [facility] (DEFAULT) [address] [place] [address] Hematocrit (Bld) [Volume fraction] 41.6 % High 33.7-40.4 [facility] Comment on above: Performed By: #### 4 [id number] #### [facility] (DEFAULT) [address] [place] [address] Hemoglobin (Bld) [Mass/Vol] 13.1 g/dL Normal 11.3-15.9 [facility] Comment on above: Performed By: #### 4 [id number] #### [facility] (DEFAULT) [address] [place] [address] Man Diff? Auto Invalid Interpretation Code [facility] Comment on above: Performed By: #### 4 [id number] #### [facility] (DEFAULT) [address] [place] [address] MCH (RBC) [Entitic mass] 25 pg Normal 24-34 [facility] Comment on above: Performed By: #### 4 [id number] #### [facility] (DEFAULT) [address] [place] [address] MCHC (RBC) [Mass/Vol] 32 g/dL Normal 26-37 [facility] Comment on above: Performed By: #### 4 [id number] #### [facility] (DEFAULT) [address] [place] [address] MCV (RBC) [Entitic vol] 81 fL Normal 81-100 [facility] Comment on above: Performed By: #### 4 [id number] #### [facility] (DEFAULT) [address] [place] [address] Platelet 298 x10 Normal 138-427 [facility] Comment on above: Performed By: #### 4 [id number] #### [facility] (DEFAULT) [address] [place] [address] Platelet mean volume (Bld) [Entitic vol] 8.6 fL Normal 6.3-10.2 [facility] Comment on above: Performed By: #### 4 [id number] #### [facility] (DEFAULT) [address] [place] [address] RBC 5.14 x10 Normal 3.70-5.30 [facility] Comment on above: Performed By: #### 4 [id number] #### [facility] (DEFAULT) [address] [place] [address] WBC 7.8 x10 Normal 3.5-10.5 [facility] Comment on above: Performed By: #### 4 [id number] #### [facility] (DEFAULT) [address] [place] [address] CMP Standardon 03-16-2023 Breakpoint Chem Normal [facility] Comment on above: Performed By: #### 4 [id number] #### [facility] (DEFAULT) [address] [place] [address] eGFR Non AA >60 Invalid Interpretation Code [facility] Comment on above: Performed By: #### 4 [id number] #### [facility] (DEFAULT) [address] [place] [address] eGFR AA >60 Invalid Interpretation Code [facility] Comment on above: Performed By: #### 4 [id number] #### [facility] (DEFAULT) [address] [place] [address] Albumin [Mass/Vol] 3.9 g/dL Normal 3.5-5.0 [facility] Comment on above: Performed By: #### 4 [id number] #### [facility] (DEFAULT) [address] [place] [address] Albumin/Globulin [Mass ratio] 1.1 {ratio} Low 1.4-2.6 [facility] Comment on above: Performed By: #### 4 [id number] #### [facility] (DEFAULT) [address] [place] [address] 24105 Alk Phos 76 IU/L Normal 32-91 [facility] Comment on above: Performed By: #### 4 [id number] #### [facility] (DEFAULT) [address] [place] [address] 26714 ALT [Catalytic activity/Vol] 17.0 U/L Normal 14.0-54.0 [facility] Comment on above: Performed By: #### 4 [id number] #### [facility] (DEFAULT) [address] [place] [address]99 Anion gap [Moles/Vol] 26.3 mmol/L High 5.0-19.0 [facility] Comment on above: Performed By: #### 4 [id number] #### [facility] (DEFAULT) [address] [place] [address] AST [Catalytic activity/Vol] 19 U/L Normal 15-41 [facility] Comment on above: Performed By: #### 4 [id number] #### [facility] (DEFAULT) [address] [place] [address]017 Bili Total 1.6 mg/dL High 0.3-1.2 [facility] Comment on above: Performed By: #### 4 [id number] #### [facility] (DEFAULT) [address] [place] [address]25 Calcium [Mass/Vol] 8.0 mg/dL Low 8.9-10.3 [facility] Comment on above: Performed By: #### 4 [id number] #### [facility] (DEFAULT) [address] [place] [address] 38912 Chloride [Moles/Vol] 97 mmol/L Low 101-111 [facility] Comment on above: Performed By: #### 4 [id number] #### [facility] (DEFAULT) [address] [place] [address]25 CO2 [Moles/Vol] 8 mmol/L Low 21-32 [facility] Comment on above: Performed By: #### 4 [id number] #### [facility] (DEFAULT) [address] [place] [address] 08192 Creatinine [Mass/Vol] 0.99 mg/dL Normal 0.60-1.30 [facility] Comment on above: Performed By: #### 4 [id number] #### [facility] (DEFAULT) [address] [place] [address] 46529 Globulin (S) [Mass/Vol] 3.4 g/dL Normal 1.5-4.3 [facility] Comment on above: Performed By: #### 4 [id number] #### [facility] (DEFAULT) [address] [place] [address] Glucose [Mass/Vol] 645.0 mg/dL Critically abnormal 74.0-118.0 [facility] Comment on above: Result Comment: Crit ical result GLU 645 mg/dL called to and read back by Sanjuana BENSON RN at 16-Mar-2023 11:05 by Anahy. Performed By: #### 4 [id number] #### [facility] (DEFAULT) [address] [place] [address] 68702 Osmolality 285 mOsm/L Invalid Interpretation Code [facility] Comment on above: Performed By: #### 4 [id number] #### [facility] (DEFAULT) [address] [place] [address] 41189 Potassium [Moles/Vol] 5.3 mmol/L High 3.6-5.1 [facility] Comment on above: Performed By: #### 4 [id number] #### [facility] (DEFAULT) [address] [place] [address] 13077 Protein [Mass/Vol] 7.3 g/dL Normal 6.5-8.1 [facility] Comment on above: Performed By: #### 4 [id number] #### [facility] (DEFAULT) [address] [place] [address] 48306 Sodium [Moles/Vol] 126.0 mmol/L Low 136.0-144.0 [facility] Comment on above: Performed By: #### 4 [id number] #### [facility] (DEFAULT) [address] [place] [address] 67045 Urea nitrogen [Mass/Vol] 16 mg/dL Normal 8-26 [facility] Comment on above: Performed By: #### 4 [id number] #### [facility] (DEFAULT) [address] [place] [address] 52629 Urea nitrogen/Creatinine [Mass ratio] 16.1 mg/mg Normal 4.6-16.2 [facility] Comment on above: Performed By: #### 4 [id number] #### [facility] (DEFAULT) [address] [place] [address] 50101 COVID/Flu/RSV (GeneXpert)on 03-16-2023 Flu A (GXpert COVFLURSV) Negative Normal Negative [facility] Comment on above: Performed By: #### 7 [id number] #### [facility] (DEFAULT) [address] [place] [address] 01480 Flu B (GXpert COVFLURSV) Negative Normal Negative [facility] Comment on above: Performed By: #### 7 [id number], [id number] #### [facility] (DEFAULT) [address] [place] [address] 71797 RSV (GXpert COVFLURSV) Negative Normal Negative [facility] Comment on above: Performed By: #### 7 [id number] #### [facility] (DEFAULT) [address] [place] [address] 59511 SARS-CoV-2 (COVID-19) RNA CARMEN+probe Ql (Unsp spec) Positive Critically abnormal Negative [facility] Comment on above: Result Comment: Resu lts Called To September By TB And Read Back For Confirmation On 03/16/2023 11:14:35 EDT. Performed by PCR methodology. Performed By: #### 7 [id number], [id number] #### [facility] (DEFAULT) [address] [place] [address] 68223 ED Clinical Summaryon 2022 ED Clinical Summary [facility] Emergency Department [address] [place] [address] ED Clinical Summary PERSON INFORMATION Name: DOUGLAS CORDOVA Age: 27 Years Sex: FEMALE : 1995 MRN: Acct#: Visit Reason: Hyperglycemia; DKA, COVID + Arrival: 03/16/2023 09:20:00 Discharge: LOS: 000 03:32 Check In: 03/16/2023 09:20:00 Checkout:03/16/2023 12:52:50 Address: [address] [facility] [address] PCP: ARCADIO IGLESIAS PROVIDER INFORMATION Provider Role [...] ron verbalizes understanding of instructions given Comment: [facility] ED Note-Nursingon 03-16-2023 ED Note-Nursing Patient presents with complaints of increased blood sugar. Patient with a history of Type 1 diabetes. Patient in insulin, however states she has not had her insulin in 3 days because she has not been able to get her prescription. Patient also complains of nausea and vomiting. Patient with an obvious acetone smell about her. [facility] ED Patient Education Noteon 03-16-2023 ED Patient Education Note Education Materials [facility] ED Patient Summaryon 023 ED Patient Summary [facility] [facility] - Emergency Department [address] [id number] PATIENT DISCHARGE INSTRUCTIONS Patient Information Name: DOUGLAS CORDOVA Age: 27 Years Date of : 1995 Reason For Visit: Hyperglycemia; DKA, COVID + Arrival Time: 03/16/2023 09:20:00 Primary Care Physician: ARCADIO IGLESIAS Attending Physician: Macy Armenta MD Comment: Visit Diagnosis: Diagnoses This Visit COVID-19 (U07.1) Diabetic ketoacidosis (E11.10) Hyperglycemia ([id number]) The Pharmacy at [facility] is open Friday through Friday from [...] alcohol and/or drug addiction problems; contact the [facility] 20/01 Crisis Hotline -Text [phone] hy [phone]. If you received any narcotics, sedation, or [...] and treatment you received today in the [facility] Emergency Department were for an urgent problem and are not intended as complete care. It is important for you to follow up with a doctor, nurse practitioner, or physician?s bankruptcy assistant for ongoing care. If your symptoms [...] so we can reach you if necessary. [facility] Emergency Department has provided you with a complete list of medications post discharge. Please inform your primary care sales representative/provider of your visit and for further instruction on these medications. Any specific questions regarding your chronic medications and dosages should be discussed with your primary care physician(s) and/or pharmacist. Medications to Continue That Have Not Changed Other Medications amphetamine-dextroam phetamine (amphetamine-dextroa mphetamine 30 mg oral capsule, extended release) carisoprodol (carisoprodol 350 mg oral tablet) Durable Medical Equipment for Prescription ([employer] PODS (GEN 4) 5PK) See instructions. gabapentin [...] Cough ? (more content not included)... Normal [facility] Magnesiumon 03-16-2023 Magnesium [Mass/Vol] 1.82 mg/dL Normal 1.80-2.50 [facility] Comment on above: Performed By: #### 4 [id number] #### [facility] (DEFAULT) [address] [place] [address]146 POCT Glucose Levelon 023 Glucose [Mass/Vol] 210 mg/dL High [address] [place] [address] Comment on above: Performed By: #### 4 [id number] #### [facility] (DEFAULT) [address] [place] [address] 83625 Glucose [Mass/Vol] 236 mg/dL High [address] [place] [address] Comment on above: Performed By: #### 7 [id number], [id number] #### [facility] (DEFAULT) [address] [place] [address] 48452 Glucose [Mass/Vol] 297 mg/dL High [address] Comment on above: Performed By: #### 4 [id number] #### [facility] (DEFAULT) [address] [place] [address] 14349 Glucose [Mass/Vol] 273 mg/dL High [address] [place] [address] Comment on above: Performed By: #### 4 [id number] #### [facility] (DEFAULT) [address] [place] [address] 29113 Glucose [Mass/Vol] 297 mg/dL High [address] [place] [address] Comment on above: Performed By: #### 4 [id number] #### [facility] (DEFAULT) [address] [place] [address] 77398 Glucose [Mass/Vol] 563 mg/dL Critically abnormal [address] [place] [address] Comment on above: Performed By: #### 4 [id number] #### [facility] (DEFAULT) [address] [place] [address] 76768 Test Serum Preg Serum Internal Control OK [facility] Comment on above: Performed By: #### 4 [id number] #### [facility] (DEFAULT) [address] [place] [address] 26833 Test Serum Qual Negative [facility] Comment on above: Performed By: #### 4 [id number] #### [facility] (DEFAULT) [address] [place] [address] Progress Note - Nurseon 02-28 Progress Note - Nurse This supervisor sewing department called to urgent care waiting room area by clerical staff-advised that pt was discharged from hospital and needed a ride home. Upon further investigation, pt was found to have signed out AMA from , confirmed with 2S reading intervention teacher-and advised staff that she would be walking home. This supervisor sewing department follows up with patient. Pt sitting in urgent care waiting area with emesis bag in hand, barefoot, tearful. Pt advises she did check herself out of care against medical advice. This supervisor sewing department asks if she feels safe to go home at this time and if she has access to her insulin-pt advises she does. This supervisor sewing department asks if she could use any additional [...] [Verified on: 03/16/2023 17:51 EDT] Yue RNShellie [facility] Progress Note - Nurse Patient left with all of her belongings and walked out of room to elevator without any socks. [Electronically Signed on: 03/16/2023 18:10 EDT] Aster Bernal RN [Verified on: 03/16/2023 18:10 EDT] Aster Bernal RN [facility] Progress Note - Nurse Upon doing assessment/ admission history patient requested something to drink. I informed her and reminded her that every time she drinks she has a large emesis. She didn't like that I refused her fluids and she said she wanted to leave. I had her sign an AMA paper. Then I notified Dr. Armenta and Suzi the supervisor sewing department. [Electronically Signed on: 03/16/2023 17:46 EDT] Aster Bernal RN [Verified on: 03/16/2023 17:46 EDT] Cook, Aster K RN [facility] UA Oalcr9an 03-16-2023 UA Amorph. 1+ [facility] Comment on above: Order Comment: Urina lysis Microscopic order added on by [employer] Expert Rules system. Performed By: #### 1 [id number], [id number] ####[facility] (DEFAULT)[address] [place] [address] UA Bacteria Rare [facility] Comment on above: Order Comment: Urina lysis Microscopic order added on by [employer] system. Performed By: #### 1 [id number], [id number] ####[facility] (DEFAULT)[address] [place] [address]88 UA RBC 0-2 [facility] Comment on above: Order Comment: Urina lysis Microscopic order added on by [employer] system. Performed By: #### 1 [id number], [id number] ####[facility] (DEFAULT)[address] [place] [address] UA Squam Epi Few [facility] Comment on above: Order Comment: Urina lysis Microscopic order added on by [employer] system. Performed By: #### 1 [id number], [id number] ####[facility] (DEFAULT)[address] [place] [address] UA WBC None Seen [facility] Comment on above: Order Comment: Urina lysis Microscopic order added on by [employer] system. Performed By: #### 1 [id number], [id number] ####[facility] (DEFAULT)[address] [place] [address] UA w Culture if Ind Standard on 03-16-2023 Breakpoint UA [facility] Comment on above: Performed By: #### 1 [id number], [id number] ####[facility] (DEFAULT)[address] [place] [address] Color (U) Yellow [facility] Comment on above: Performed By: #### 1 [id number], [id number] ####[facility] (DEFAULT)[address] [place] [address] Culture? No [facility] Comment on above: Result Comment: Resu lt created by rule GL_MAGR_ADD_UA_CULT Result created by rule GL_MAGR_ADD_UA_CULT1 Performed By: #### 1 [id number], [id number] ####[facility] (DEFAULT)[address] [place] [address] 12211 Glucose (U) [Mass/Vol] mg/dL Normal [facility] Comment on above: Performed By: #### 1 [id number], [id number] ####[facility] (DEFAULT)[address] [place] [address] 21413 Ketones Ql (U) >=80 Normal [facility] Comment on above: Performed By: #### 1 [id number], [id number] ####[facility] (DEFAULT)[address] [place] [address] 37896 Micro? Indicated Invalid Interpretation Code [facility] Comment on above: Result Comment: Resu lt created by rule GL_MAGR_ADD_UA_MICRO Performed By: #### 1 [id number], [id number] ####[facility] (DEFAULT)[address] [place] [address] 76444 UA Bilirubin Negative Normal [facility] Comment on above: Performed By: #### 1 [id number], [id number] ####[facility] (DEFAULT)[address] [place] [address] 03106 UA Blood TRACE Abnormal NEGATIVE [facility] Comment on above: Performed By: #### 1 [id number], [id number] ####[facility] (DEFAULT)[address] [place] [address] 86072 UA Clarity CLEAR Normal CLEAR [facility] Comment on above: Performed By: #### 1 [id number], [id number] ####[facility] (DEFAULT)[address] [place] [address] 19018 UA Leuk Est Negative Normal NEGATIVE [facility] Comment on above: Performed By: #### 1 [id number], [id number] ####[facility] (DEFAULT)[address] [place] [address] 28790 UA Nitrite Negative Normal NEGATIVE [facility] Comment on above: Performed By: #### 1 [id number], [id number] ####[facility] (DEFAULT)[address] [place] [address] 90018 UA pH 6.0 Normal 5-8 [facility] Comment on above: Performed By: #### 1 [id number], [id number] ####[facility] (DEFAULT)[address] [place] [address] 69578 UA Protein Negative Normal NEGATIVE [facility] Comment on above: Performed By: #### 1 [id number], [id number] ####[facility] (DEFAULT)[address] [place] [address] 42632 UA Spec Grav 1.025 Normal 1.001-1.035 [facility] Comment on above: Performed By: #### 1 [id number], [id number] ####[facility] (DEFAULT)[address] [place] [address] 94170 UA Urobilinogen 0.2 mg/dL Normal 0.2-1.0 [facility] Comment on above: Performed By: #### 1 [id number], [id number] ####[facility] (DEFAULT)[address] [place] [address] 59790 Urine Source Clean Catch Normal [facility] Comment on above: Performed By: #### 1 [id number], [id number] ####[facility] (DEFAULT)[address] [place] [address] 27007 ACETONE SERUMon 08-25-2022 ACETONE SMALL Abnormal NEGATIVE [facility] Comment on above: Performed By: #### A CETON, PREG #### [facility] [address] [address] [address] Darleen Cho CBC AUTO DIFFon 08-25-2022 BASO # 0.1 103/ul Normal 0.0-0.1 [facility] Comment on above: Performed By: #### B MP #### [facility] [address] [address] [address] Darleen Cho Basophils/100 WBC (Bld) 0.4 % Normal 0.2-2.0 [facility] Comment on above: Performed By: #### B MP #### [facility] [address] [address] [address] Darleen Cho EO # 0.1 103/ul Normal 0.0-0.7 [facility] Comment on above: Performed By: #### B MP #### [facility] [address] [place] [address] Dr. Darleen Cho Eosinophils/100 WBC (Bld) 0.3 % Critically low 0.9-7.0 [facility] Comment on above: Performed By: #### B MP #### [facility] [address] [place] [address] Dr. Darleen Cho Erythrocyte distribution width (RBC) [Ratio] 14.6 % Normal 11.0-15.0 [facility] Comment on above: Performed By: #### B MP #### [facility] [address] [place] [address] Dr. aDrleen Cho Hematocrit (Bld) [Volume fraction] 43.9 % Normal 36.0-48.0 [facility] Comment on above: Performed By: #### B MP #### [facility] [address] [place] [address] Dr. Darleen Cho Hemoglobin (Bld) [Mass/Vol] 13.8 g/dL Normal 12.0-16.0 [facility] Comment on above: Performed By: #### B MP #### [facility] [address] [place] [address] Dr. Darleen Cho IG # 0.25 10e3/ul Critically high 0.00-0.03 [facility] Comment on above: Performed By: #### B MP #### [facility] [address] [place] [address] Dr. Darleen Cho IG % 1.1 % Critically high 0.0-0.5 [facility] Comment on above: Performed By: #### B MP #### [facility] [address] [place] [address] Dr. Darleen Cho LYMPH # 2.3 103/ul Normal 1.2-3.8 [facility] Comment on above: Performed By: #### B MP #### [facility] [address] [address] [address] Darleen Cho Lymphocytes/100 WBC (Bld) 10.4 % Critically low 20.5-60.0 [facility] Comment on above: Performed By: #### B MP #### [facility] [address] [address] [address] Darleen Cho MANUAL DIFF REQ NO Normal [facility] Comment on above: Performed By: #### B MP #### [facility] [address] [address] [address] Darleen Cho MCH (RBC) [Entitic mass] 24.1 pg Critically low 26.7-34 .0 [facility] Comment on above: Performed By: #### B MP #### [facility] [address] [place] [address] Dr. Darleen Cho MCHC (RBC) [Mass/Vol] 31.4 g/dL Normal 29.9-35.2 [facility] Comment on above: Performed By: #### B MP #### [facility] [address] [place] [address] Dr. Darleen Cho MCV (RBC) [Entitic vol] 76.7 fL Critically low 81.0-99. 0 [facility] Comment on above: Performed By: #### B MP #### [facility] [address] [place] [address] Dr. Darleen Cho MONO # 0.3 103/ul Normal 0.3-0.8 [facility] Comment on above: Performed By: #### B MP #### [facility] [address] [place] [address] Dr. Darleen Cho Monocytes/100 WBC (Bld) 1.2 % Critically low 1.7-12.0 [facility] Comment on above: Performed By: #### B MP #### [facility] [address] [place] [address] Dr. Darleen Cho NEUT # 19.4 103/ul Critically high 1.4-6.5 [facility] Comment on above: Performed By: #### B MP #### [facility] [address] [place], [place] [id number] Dr. Darleen Cho Neutrophils/100 WBC (Bld) 86.6 % Critically high 43.0-75.0 [facility] Comment on above: Performed By: #### B MP #### [facility] [address] [place] [address] Dr. Darleen Cho Platelet mean volume (Bld) [Entitic vol] 9.1 fL Critically low 9.5-13.5 [facility] Comment on above: Performed By: #### B MP #### [facility] [address] [place] [address] Dr. Darleen Cho PLT 557 103/ul Critically high 150-450 [facility] Comment on above: Performed By: #### B MP #### [facility] [address] [place] [address] Dr. Darleen Cho RBC 5.72 106/ul Critically high 4.20-5.40 [facility] Comment on above: Performed By: #### B MP #### [facility] [address] [place] [address] Dr. Darleen Cho WBC 22.4 103/ul Critically high 4.0-11.0 [facility] Comment on above: Performed By: #### B MP #### [facility] [address] [place] [address] Dr. Darleen Cho CULTURE BLOODon 08-25-2022 Microscopic examination of blood, culture Culture Observations: NO GROWTH AT 5 DAYS. Normal [facility] Comment on above: Performed By: #### B MP #### [facility] [address] [place] [address] Dr. Darleen Cho Microscopic examination of blood, culture Culture Observations: NO GROWTH AT 5 DAYS. Normal [facility] Comment on above: Performed By: #### B MP #### [facility] [address] [place], [place] [id number] Dr. Darleen Cho CULTURE URINEon 08-25-2022 CULTURE URINE Culture Observations: NO GROWTH. Normal [facility] Comment on above: Performed By: #### B MP #### [facility] [address] [place] [address] Dr. Darleen Cho Covid-19 PCR (CVDTBH)on 08-01 SARS-CoV-2 (COVID-19) RNA CARMEN+probe Ql (Unsp spec) Not detected Normal NOT DETECTED [facility] Comment on above: Result Comment: When diagnostic [...] for this test is supported by the [employer] of [employer]'s declaration that [...] used). Performed By: #### C VDTBH #### [facility] [address] [place] [address] Dr. Darleen Cho ER URINE PROFILEon 3 Bilirubin Ql (U) SMALL Abnormal NEGATIVE [facility] Comment on above: Performed By: #### U MICRO, ERUR #### [facility] [address] [place] [address] Dr. Darleen Cho Clarity (U) CLEAR Normal CLEAR [facility] Comment on above: Performed By: #### U MICRO, ERUR #### [facility] [address] [place] [address] Dr. Darleen Cho Color (U) LT. YELLOW Normal YELLOW [facility] Comment on above: Performed By: #### U MICRO, ERUR #### [facility] [address] [place] [address] Dr. Darleen Cho ERUAHD A micrscopic examination will be performed if indicated. Normal [facility] Comment on above: Performed By: #### U MICRO, ERUR #### [facility] [address] [address] [address] Darleen Cho Glucose Ql (U) 500 mg/dl Abnormal NEGATIVE [facility] Comment on above: Performed By: #### U MICRO, ERUR #### [facility] [address] [place] [address] Dr. Darleen Cho Hemoglobin Ql (U) MODERATE Abnormal NEGATIVE [facility] Comment on above: Performed By: #### U MICRO, ERUR #### [facility] [address] [address] [address] Darleen Cho Ketones Ql (U) >=80 Abnormal NEGATIVE [facility] Comment on above: Performed By: #### U MICRO, ERUR #### [facility] [address] [place] [address] Dr. Darleen Cho LEUKOCYTES Negative Normal NEGATIVE [facility] Comment on above: Performed By: #### U MICRO, ERUR #### [facility] [address] [place] [address] Dr. Darleen Cho Nitrite Ql (U) Negative Normal NEGATIVE [facility] Comment on above: Performed By: #### U MICRO, ERUR #### [facility] [address] [place] [address] Dr. Darleen Cho pH (U) 5.5 [pH] Normal 5-9 [facility] Comment on above: Performed By: #### U MICRO, ERUR #### [facility] [address] [place] [address] Dr. Darleen Cho Protein (U) [Mass/Vol] 100 mg/dL Abnormal NEGAT MALISSA/ TRACE [facility] Comment on above: Performed By: #### U MICRO, ERUR #### [facility] [address] [place] [address] Dr. Darleen Cho SPEC GRAVITY >=1.030 Abnormal 1.005-<=1.02 5 [facility] Comment on above: Performed By: #### U MICRO, ERUR #### [facility] [address] [place] [address] Dr. Darleen Cho UR MICRO IND INDICATED Normal [facility] Comment on above: Performed By: #### U MICRO, ERUR #### [facility] [address] [place] [address] Dr. Darleen Cho Urobilinogen Qn (U) 0.2 {Ophelia'U}/dL Normal 0.2 - 1. 0 [facility] Comment on above: Performed By: #### U MICRO, ERUR #### [facility] [address] [place] [address] Dr. Darleen Cho HIV 1/2 RAPID (EXPOSURE ONLY )on 08-25-2022 HIV AB Non-Reactive Normal NON-REACTIVE [facility] Comment on above: Performed By: #### R PDHIV #### [facility] [address] [place] [address] Dr. Darleen Cho HIV AG Non-Reactive Normal NON-REACTIVE [facility] Comment on above: Performed By: #### R PDHIV #### [facility] [address] [place] [address] Dr. Darleen Cho INTERNAL CONTROLS Within Normal Limits Normal Wi thin Normal Limits [facility] Comment on above: Performed By: #### R PDHIV #### [facility] [address] [place] [address] Dr. Darleen Cho RAPID HIV INFO SEE BELOW Normal [facility] Comment on above: Result Comment: This test is used for the initial screening of the exposure source. Confirmation of all reactive results will be obtained through reference lab testing. Performed By: #### R PDHIV #### [facility] [address] [place] [address] Dr. Darleen Cho PH VENOUS BLOODon 08-25-2022 PCO2 VENOUS 24.1 mmHg Critically low 40.0-52.0 [facility] Comment on above: Performed By: #### B MP #### [facility] [address] [place] [address] Dr. Darleen Cho pH VENOUS 7.288 Critically low 7.330-7.430 [facility] Comment on above: Performed By: #### B MP #### [facility] [address] [place] [address] Dr. Darleen Cho PCO2 VENOUS 18.1 mmHg Critically low 40.0-52.0 [facility] Comment on above: Performed By: #### P HVEN #### [facility] [address] [place] [address] Dr. Darleen Cho pH VENOUS 7.157 Critically low 7.330-7.430 [facility] Comment on above: Performed By: #### P HVEN #### [facility] [address] [address] [address] Darleen Cho PCO2 VENOUS 18.3 mmHg Critically low 40.0-52.0 [facility] Comment on above: Performed By: #### P HVEN #### [facility] [address] [address] [address] Darleen Cho pH VENOUS 6.933 Critically low 7.330-7.430 [facility] Comment on above: Performed By: #### P HVEN #### [facility] [address] [place] [address] Dr. Darleen Cho POINT OF CARE GLUCOSEon 08-01 Glucose [Mass/Vol] 201 mg/dL Critically high 74-106 [facility] Comment on above: Performed By: #### B MP #### [facility] [address] [place] [address] Dr. Darleen Cho Glucose [Mass/Vol] 373 mg/dL Critically high 74-106 [facility] Comment on above: Performed By: #### B MP #### [facility] [address] [address] [address] Darleen Cho Glucose [Mass/Vol] 433 mg/dL Critically high 74-106 [facility] Comment on above: Performed By: #### B MP #### [facility] [address] [place] [address] Dr. Darleen Cho PREG HCG QUALon 08-25-2022 , QUAL Negative Normal NEGATIVE [facility] Comment on above: Performed By: #### A CETON, PREG #### [facility] [address] [place] [address] Dr. Darleen hCo PROF CHEM 8 (BAS METB)on Anion gap [Moles/Vol] 19.7 mmol/L Normal [facility] Comment on above: Performed By: #### B MP #### [facility] [address] [address] [address] Darleen Cho Calcium [Mass/Vol] 7.2 mg/dL Critically low 8.5-10.1 [place] Comment on above: Performed By: #### B MP #### [facility] [address] [place] [address] Dr. Darleen Cho Chloride [Moles/Vol] 100 mmol/L Normal 98-107 [facility] Comment on above: Performed By: #### B MP #### [facility] [address] [place] [address] Dr. Darleen Cho CO2 [Moles/Vol] 13.5 mmol/L Critically low 21.0-32.0 [facility] Comment on above: Performed By: #### B MP #### [facility] [address] [place] [address] Dr. Darleen Cho Creatinine [Mass/Vol] 0.71 mg/dL Normal 0.55-1.02 [facility] Comment on above: Performed By: #### B MP #### [facility] [address] [place] [address] Dr. Darleen Cho EGFR-AF MAURITANIAN >60 Normal >=60 [facility] Comment on above: Performed By: #### B MP #### [facility] [address] [place] [address] Dr. Darleen Cho EGFR-NON AF MAURITANIAN >60 Normal >=60 [facility] Comment on above: Performed By: #### B MP #### [facility] [address] [place] [address] Dr. Darleen Cho Glucose [Mass/Vol] 333 mg/dL Critically high 74-106 [facility] Comment on above: Performed By: #### B MP #### [facility] [address] [place] [address] Dr. Darleen Cho Potassium [Moles/Vol] 3.2 mmol/L Critically low 3.5-5.1 [facility] Comment on above: Performed By: #### B MP #### [facility] [address] [address] [address] Darleen Cho Sodium [Moles/Vol] 130 mmol/L Critically low 136-145 [place] Comment on above: Performed By: #### B MP #### [facility] [address] [address] [address] Darleen Cho Urea nitrogen [Mass/Vol] 8.0 mg/dL Normal 7.0-18.0 [facility] Comment on above: Performed By: #### B MP #### [facility] [address] [address] [address] Darleen Cho Urea nitrogen/Creatinine [Mass ratio] 11.3 mg/mg Normal [facility] Comment on above: Performed By: #### B MP #### [facility] [address] [address] [address] Darleen Cho Anion gap [Moles/Vol] 24.7 mmol/L Normal [place] Comment on above: Performed By: #### B MP #### [facility] [address] [address] [address] Darleen Cho Calcium [Mass/Vol] 7.2 mg/dL Critically low 8.5-10.1 [place] Comment on above: Performed By: #### B MP #### [facility] [address] [address] [address] Darleen Cho Chloride [Moles/Vol] 102 mmol/L Normal 98-107 [facility] Comment on above: Performed By: #### B MP #### [facility] [address] [address] [address] Darleen Cho CO2 [Moles/Vol] 8.6 mmol/L Critically low 21.0-32.0 [facility] Comment on above: Performed By: #### B MP #### [facility] [address] [address] [address] Darleen Cho Creatinine [Mass/Vol] 0.63 mg/dL Normal 0.55-1.02 [facility] Comment on above: Performed By: #### B MP #### [facility] [address] [address] [address] Darleen Coh EGFR-AF MAURITANIAN >60 Normal >=60 [facility] Comment on above: Performed By: #### B MP #### [facility] [address] [address] [address] Darleen Cho EGFR-NON AF MAURITANIAN >60 Normal >=60 [facility] Comment on above: Performed By: #### B MP #### [facility] [address] [address] [address] Darleen Cho Glucose [Mass/Vol] 228 mg/dL Critically high 74-106 [facility] Comment on above: Performed By: #### B MP #### [facility] [address] [place] [address] Dr. Darleen Cho Potassium [Moles/Vol] 3.3 mmol/L Critically low 3.5-5.1 [facility] Comment on above: Performed By: #### B MP #### [facility] [address] [place] [address] Dr. Darleen Cho Sodium [Moles/Vol] 132 mmol/L Critically low 136-145 [place] Comment on above: Performed By: #### B MP #### [facility] [address] [place] [address] Dr. Darleen Cho Urea nitrogen [Mass/Vol] 11.0 mg/dL Normal 7.0-18.0 [facility] Comment on above: Performed By: #### B MP #### [facility] [address] [place] [address] Dr. Darleen Cho Urea nitrogen/Creatinine [Mass ratio] 17.5 mg/mg Normal [facility] Comment on above: Performed By: #### B MP #### [facility] [address] [place] [address] Dr. Darleen Cho Anion gap [Moles/Vol] 29.5 mmol/L Normal [place] Comment on above: Performed By: #### B MP #### [facility] [address] [place] [address] Dr. Darleen Cho Calcium [Mass/Vol] 8.6 mg/dL Normal 8.5-10.1 [facility] Comment on above: Performed By: #### B MP #### [facility] [address] [address] [address] Darleen Cho Chloride [Moles/Vol] 94 mmol/L Critically low 98-107 [facility] Comment on above: Performed By: #### B MP #### [facility] [address] [address] [address] Darleen Cho CO2 [Moles/Vol] 5.9 mmol/L Critically low 21.0-32.0 [facility] Comment on above: Performed By: #### B MP #### [facility] [address] [place] [address] Dr. Darleen Cho Creatinine [Mass/Vol] 0.94 mg/dL Normal 0.55-1.02 [facility] Comment on above: Performed By: #### B MP #### [facility] [address] [place] [address] Dr. Darleen Cho EGFR-AF MAURITANIAN >60 Normal >=60 [facility] Comment on above: Performed By: #### B MP #### [facility] [address] [address] [address] Darleen Cho EGFR-NON AF MAURITANIAN >60 Normal >=60 [facility] Comment on above: Performed By: #### B MP #### [facility] [address] [address] [address] Darleen Cho Glucose [Mass/Vol] 403 mg/dL Critically high 74-106 [facility] Comment on above: Performed By: #### B MP #### [facility] [address] [address] [address] Darleen Cho Potassium [Moles/Vol] 4.4 mmol/L Normal 3.5-5.1 [facility] Comment on above: Performed By: #### B MP #### [facility] [address] [place] [address] Dr. Darleen Cho Sodium [Moles/Vol] 125 mmol/L Critically low 136-145 [facility] Comment on above: Performed By: #### B MP #### [facility] [address] [address] [address] Darleen Cho Urea nitrogen [Mass/Vol] 10.0 mg/dL Normal 7.0-18.0 [facility] Comment on above: Performed By: #### B MP #### [facility] [address] [address] [address] Darleen Cho Urea nitrogen/Creatinine [Mass ratio] 10.6 mg/mg Normal [facility] Comment on above: Performed By: #### B MP #### [facility] [address] [address] [address] Darleen Cho URINE MICROSCOPIC ONLYon BACTERIA TRACE Abnormal NONE SEEN [facility] Comment on above: Performed By: #### U MICRO, ERUR #### [facility] [address] [place] [address] Dr. Darleen Cho Bacteria identified Cx Nom (U) NOT INDICATED Normal [facility] Comment on above: Performed By: #### U MICRO, ERUR #### [facility] [address] [place] [address] Dr. Darleen Cho CAST NONE SEEN Normal NONE SEEN [facility] Comment on above: Performed By: #### U MICRO, ERUR #### [facility] [address] [place] [address] Dr. Darleen Cho Crystals LM Nom (Urine sed) NONE SEEN Normal NONE SEEN [facility] Comment on above: Performed By: #### U MICRO, ERUR #### [facility] [address] [place] [address] Dr. Darleen Cho Epithelial cells LM Ql (Urine sed) FEW Abnormal NONE SEEN /RARE [facility] Comment on above: Performed By: #### U MICRO, ERUR #### [facility] [address] [place] [address] Dr. Darleen Cho MUCOUS NONE SEEN Normal NONE SEEN [facility] Comment on above: Performed By: #### U MICRO, ERUR #### [facility] [address] [place] [address] Dr. Darleen Cho RBC 2-5 Abnormal 0-2 [facility] Comment on above: Performed By: #### U MICRO, ERUR #### [facility] [address] [address] [address] Darleen Cho WBC 0-2 Abnormal NONE SEEN [facility] Comment on above: Performed By: #### U MICRO, ERUR #### [facility] [address] [address] [address] Darleen Cho XR CHEST 1 Von 08-25-2022 XR CHEST 1 V EXAM: XR CHEST 1 V INDICATION: SHORTNESS OF BREATH. COMPARISON: None. TECHNIQUE: Single frontal view of the chest FINDINGS: Normal cardiomediastinal contours. Clear lungs. No pleural effusion or pneumothorax. No acute osseous abnormality. IMPRESSION: No acute cardiopulmonary process. Electronically authenticated by: ROSA M MENDEZ Date: 2022-08-25 12:46 Normal [facility] Covid-19 PCR (CVDTB)on 02-28 SARS-CoV-2 (COVID-19) RNA CARMEN+probe Ql (Unsp spec) Not detected Normal NOT DETECTED [facility] Comment on above: Result Comment: This test is not yet approved or cleared by the [place] FDA. When there are no FDA-approved or cleared tests available, and other criteria are met, FDA can make tests available under an emergency access mechanism called an Emergency Use Authorization (EUA). The EUA for this test is supported by the [place] of Health and Human Service's (HHS's) declaration [...] Performed By: #### A CETON, PREG #### [facility] [address] [address] [address] Darleen Cho Basic Metabolic Panelon Anion gap [Moles/Vol] 10 mmol/L 9 - 17 mmol/L [place] Bun/Cre Ratio NOT REPORTED [place] Calcium [Mass/Vol] 8.3 mg/dL Low 8.6 - 10. 4 mg/dL [place] Chloride [Moles/Vol] 106 mmol/L 98 - 10 7 mmol/L [place] CO2 [Moles/Vol] 16 mmol/L Low 20 - 31 mmol/L [place] Creatinine [Mass/Vol] 0.53 mg/dL 0.5 - 0.9 mg/dL [place] GFR >60 >60 mL/min [place] GFR Non- >60 >60 mL/min [place] GFR/1.73 sq M predicted among non-blacks MDRD (S/P/Bld) [Vol rate/Area] [place] Comment on above: Average GFR for 20-2 9 years old: 116 mL/min/1.73sq m Chronic Kidney Disease: <60 mL/min/1.73sq m Kidney failure: <15 mL/min/1.73sq m eGFR calculated using average adult body mass. Additional eGFR calculator available at: http://www.[employer]/multiple_crcl_2012.htm GFR/1.73 sq M predicted among non-blacks MDRD (S/P/Bld) [Vol rate/Area] NOT REPORTED [place] Glucose [Mass/Vol] 208 mg/dL High 70 - 99 mg/dL [place] Interpretation and review of laboratory results Abnormal [place] Potassium [Moles/Vol] 3.5 mmol/L Low 3.7 - 5.3 mmol/L [place] Sodium [Moles/Vol] 132 mmol/L Low 135 - 144 mmol/L [place] Urea nitrogen [Mass/Vol] 9 mg/dL 6 - 20 mg/d L [place] Anion gap [Moles/Vol] 13 mmol/L 9 - 17 mmol/L [place] Bun/Cre Ratio NOT REPORTED [place] Calcium [Mass/Vol] 8.4 mg/dL Low 8.6 - 10. 4 mg/dL [place] Chloride [Moles/Vol] 107 mmol/L 98 - 10 7 mmol/L [place] CO2 [Moles/Vol] 16 mmol/L Low 20 - 31 mmol/L [place] Creatinine [Mass/Vol] 0.6 mg/dL 0.5 - 0.9 mg/dL [place] GFR >60 >60 mL/min [place] GFR Non- >60 >60 mL/min [place] GFR/1.73 sq M predicted among non-blacks MDRD (S/P/Bld) [Vol rate/Area] NOT REPORTED [place] GFR/1.73 sq M predicted among non-blacks MDRD (S/P/Bld) [Vol rate/Area] [place] Comment on above: Average GFR for 20-2 9 years old: 116 mL/min/1.73sq m Chronic Kidney Disease: <60 mL/min/1.73sq m Kidney failure: <15 mL/min/1.73sq m eGFR calculated using average adult body mass. Additional eGFR calculator available at: http://www.[employer]/multiple_crcl_2012.htm Glucose [Mass/Vol] 189 mg/dL High 70 - 99 mg/dL [place] Interpretation and review of laboratory results Abnormal [place] Potassium [Moles/Vol] 3.6 mmol/L Low 3.7 - 5.3 mmol/L [place] Sodium [Moles/Vol] 136 mmol/L 135 - 144 mmol/L [place] Urea nitrogen [Mass/Vol] 7 mg/dL 6 - 20 mg/d L [place] Anion gap [Moles/Vol] 8 mmol/L Low 9 - 17 mmol/L [place] Bun/Cre Ratio NOT REPORTED [place] Calcium [Mass/Vol] 7.6 mg/dL Low 8.6 - 10. 4 mg/dL [place] Chloride [Moles/Vol] 110 mmol/L High 98 - 10 7 mmol/L [place] CO2 [Moles/Vol] 16 mmol/L Low 20 - 31 mmol/L [place] Creatinine [Mass/Vol] 0.41 mg/dL Low 0.5 - 0.9 mg/dL [place] GFR >60 >60 mL/min [place] GFR Non- >60 >60 mL/min [place] GFR/1.73 sq M predicted among non-blacks MDRD (S/P/Bld) [Vol rate/Area] [place] Comment on above: Average GFR for 20-2 9 years old: 116 mL/min/1.73sq m Chronic Kidney Disease: <60 mL/min/1.73sq m Kidney failure: <15 mL/min/1.73sq m eGFR calculated using average adult body mass. Additional eGFR calculator available at: http://www.[employer]/multiple_crcl_2012.htm GFR/1.73 sq M predicted among non-blacks MDRD (S/P/Bld) [Vol rate/Area] NOT REPORTED [place] Glucose [Mass/Vol] 188 mg/dL High 70 - 99 mg/dL [place] Interpretation and review of laboratory results Abnormal [place] Potassium [Moles/Vol] 3.6 mmol/L Low 3.7 - 5.3 mmol/L [place] Sodium [Moles/Vol] 134 mmol/L Low 135 - 144 mmol/L [place] Urea nitrogen [Mass/Vol] 5 mg/dL Low 6 - 20 mg/d L [place] Anion gap [Moles/Vol] 9 mmol/L 9 - 17 mmol/L [place] Bun/Cre Ratio NOT REPORTED [place] Calcium [Mass/Vol] 7.6 mg/dL Low 8.6 - 10. 4 mg/dL [place] Chloride [Moles/Vol] 118 mmol/L High 98 - 10 7 mmol/L [place] CO2 [Moles/Vol] 17 mmol/L Low 20 - 31 mmol/L [place] Creatinine [Mass/Vol] 0.46 mg/dL Low 0.5 - 0.9 mg/dL [place] GFR >60 >60 mL/min [place] GFR Non- >60 >60 mL/min [place] GFR/1.73 sq M predicted among non-blacks MDRD (S/P/Bld) [Vol rate/Area] NOT REPORTED [place] GFR/1.73 sq M predicted among non-blacks MDRD (S/P/Bld) [Vol rate/Area] [place] Comment on above: Average GFR for 20-2 9 years old: 116 mL/min/1.73sq m Chronic Kidney Disease: <60 mL/min/1.73sq m Kidney failure: <15 mL/min/1.73sq m eGFR calculated using average adult body mass. Additional eGFR calculator available at: http://www.[employer]/multiple_crcl_2012.htm Glucose [Mass/Vol] 112 mg/dL High 70 - 99 mg/dL [place] Potassium [Moles/Vol] 3.1 mmol/L Low 3.7 - 5.3 mmol/L [place] Sodium [Moles/Vol] 144 mmol/L 135 - 144 mmol/L [place] Urea nitrogen [Mass/Vol] 5 mg/dL Low 6 - 20 mg/d L [place] Anion gap [Moles/Vol] 7 mmol/L Low 9 - 17 mmol/L [place] Bun/Cre Ratio NOT REPORTED [place] Calcium [Mass/Vol] 6.8 mg/dL Low 8.6 - 10. 4 mg/dL [place] Chloride [Moles/Vol] 114 mmol/L High 98 - 10 7 mmol/L [place] CO2 [Moles/Vol] 15 mmol/L Low 20 - 31 mmol/L [place] Creatinine [Mass/Vol] 0.47 mg/dL Low 0.5 - 0.9 mg/dL [place] GFR >60 >60 mL/min [place] GFR Non- >60 >60 mL/min [place] GFR/1.73 sq M predicted among non-blacks MDRD (S/P/Bld) [Vol rate/Area] [place] Comment on above: Average GFR for 20-2 9 years old: 116 mL/min/1.73sq m Chronic Kidney Disease: <60 mL/min/1.73sq m Kidney failure: <15 mL/min/1.73sq m eGFR calculated using average adult body mass. Additional eGFR calculator available at: http://www.[employer]/multiple_crcl_2011.htm GFR/1.73 sq M predicted among non-blacks MDRD (S/P/Bld) [Vol rate/Area] NOT REPORTED [place] Glucose [Mass/Vol] 230 mg/dL High 70 - 99 mg/dL [place] Potassium [Moles/Vol] 3.3 mmol/L Low 3.7 - 5.3 mmol/L [place] Sodium [Moles/Vol] 136 mmol/L 135 - 144 mmol/L [place] Urea nitrogen [Mass/Vol] 5 mg/dL Low 6 - 20 mg/d L [place] CBC WITH AUTO DIFFERENTIALon 08-01-2020 Basophils (Bld) [#/Vol] 10*3/uL [place] Basophils/100 WBC (Bld) 0 % 0 - 2 % [place] Differential Type NOT REPORTED [place] Eosinophils (Bld) [#/Vol] 0.05 10*3/uL [place] Eosinophils/100 WBC (Bld) 1 % 1 - 4 % [place] Erythrocyte distribution width (RBC) [Ratio] 14.6 % High 11.8 - 14.4 % [place] Hematocrit (Bld) [Volume fraction] 30.7 % Low 36.3 - 47.1 % [place] Hemoglobin (Bld) [Mass/Vol] 10.0 g/dL Low 11.9 - 15.1 g/dL [place] Immature granulocytes (Bld) [#/Vol] 10*3/uL [place] Immature granulocytes (Bld) [#/Vol] 0 % 0 [place] Interpretation and review of laboratory results Abnormal [place] Lymphocytes (Bld) [#/Vol] 1.79 10*3/uL [place] Lymphocytes/100 WBC (Bld) 28 % 24 - 43 % [place] MCH (RBC) [Entitic mass] 26.0 pg 25. 2 - 33.5 pg [place] MCHC (RBC) [Mass/Vol] 32.6 g/dL 28.4 - 34.8 g/dL [place] MCV (RBC) [Entitic vol] 79.9 fL Low 82.6 - 102.9 fL [place] Monocytes (Bld) [#/Vol] 0.27 10*3/uL [place] Monocytes/100 WBC (Bld) 4 % 3 - 12 % [place] Platelet mean volume (Bld) [Entitic vol] 10.0 fL 8.1 - 13.5 fL [place] Platelets (Bld) [#/Vol] NOT REPORTED [place] Platelets (Bld) [#/Vol] 130 10*3/uL [place] RBC (Bld) [#/Vol] 3.84 10*6/uL Low 3.95 - 5.1 1 m/uL [place] RBC morphology finding Nom (Bld) ANISOCYTOSIS PRESENT [place] Comment on above: MICROCYTOSIS PRESENT Segmented neutrophils/100 WBC (Bld) 67 % High 36 - 65 % [place] Segs Absolute 4.37 [place] WBC (Bld) [#/Vol] 0.0 10*3/uL 0.0 per 10 0 WBC [place] WBC (Bld) [#/Vol] 6.5 10*3/uL [place] WBC Morphology NOT REPORTED [place] EKG 12 Leadon 08-01-2020 Atrial Rate 109 BPM [place] P [place] 23 degrees [place] P-R Interval 148 ms [place] Q-T Interval 424 ms [place] QRS Duration 78 ms [place] QTc Calculation ([place]) 570 ms [place] R [place] 93 degrees [place] T [place] 111 degrees [place] Ventricular Rate 109 BPM [place] Wong, Mhpn Incoming [place] [facility]01[place] 11:21 AM EST Sinus tachycardia Rightward axis Septal infarct , age undetermined ST & T wave abnormality, consider lateral ischemia Prolonged QT Abnormal ECG No previous ECGs available [place] Sinus tachycardia Rightward axis Septal infarct , age undetermined ST & T wave abnormality, consider lateral ischemia Prolonged QT Abnormal ECG No previous ECGs available [place] HEMOGLOBIN A1Con 08-01-2020 Glucose [Mass/Vol] 499 mg/dL [place] Comment on above: The ADA and AACC rec ommend providing the estimated average glucose result to permit better patient understanding of their HBA1c result. HbA1c (Bld) [Mass fraction] 19.0 % High 4 - 6 % [place] Interpretation and review of laboratory results Abnormal [place] Magnesiumon 08-01-2020 Magnesium [Mass/Vol] 1.7 mg/dL 1.6 - 2 .6 mg/dL [place] Magnesium [Mass/Vol] 2.0 mg/dL 1.6 - 2 .6 mg/dL [place] Magnesium [Mass/Vol] 1.7 mg/dL 1.6 - 2 .6 mg/dL [place] Magnesium [Mass/Vol] 2.0 mg/dL 1.6 - 2 .6 mg/dL [place] Magnesium [Mass/Vol] 1.8 mg/dL 1.6 - 2 .6 mg/dL [place] Otheron 08-01-2020 Interpretation and review of laboratory results Abnormal [place] Interpretation and review of laboratory results Abnormal [place] POC Glucose Fingerstickon Glucose [Mass/Vol] 174 mg/dL High 65 - 105 mg/dL [place] Interpretation and review of laboratory results Abnormal [place] Glucose [Mass/Vol] 187 mg/dL High 65 - 105 mg/dL [place] Interpretation and review of laboratory results Abnormal [place] Glucose [Mass/Vol] 104 mg/dL 65 - 105 mg/dL [place] Glucose [Mass/Vol] 295 mg/dL High 65 - 105 mg/dL [place] Interpretation and review of laboratory results Abnormal [place] , URINEon Beta HCG ( test) Ql (U) Negative NEGATIVE [place] Comment on above: Specimens with hCG [...] 2.7 mg/dL 2.6 - 4 .5 mg/dL [place] Phosphate [Mass/Vol] 2.7 mg/dL 2.6 - 4 .5 mg/dL [place] Phosphate [Mass/Vol] 2.9 mg/dL 2.6 - 4 .5 mg/dL [place] Phosphate [Mass/Vol] 2.2 mg/dL Low 2.6 - 4 .5 mg/dL [place] Phosphate [Mass/Vol] 1.6 mg/dL Low 2.6 - 4 .5 mg/dL [place] Anion Gap (Calc) POCon 07-31 Anion gap [Moles/Vol] 17 mmol/L High 7 - 16 mmol/L [place] Arterial Blood Gas, POCon Cami Test NOT REPORTED [place] aPTT Coag (Bld) [Time] NOT REPORTED [place] FIO2 30.0 [place] Mode PRVC [place] Negative Base Excess, Art 28 High [place] O2 Device/Flow/% Adult Ventilator [place] Oxygen saturation in Blood 88 % Low 94 - 98 % [place] POC HCO3 3.5 mmol/L Critically low 21 - 28 mmol/L [place] POC pCO2 18.0 Low [place] POC pCO2 Temp NOT REPORTED mm Hg [place] POC pH 6.893 Critically low [place] POC pH Temp NOT REPORTED [place] POC PO2 88.9 [place] POC pO2 Temp NOT REPORTED mm Hg [place] Positive Base Excess, Art NOT REPORTED [place] Sample Site Arterial Line [place] TCO2 (calc), Art <5 Low 22 - 29 mmol/L [place] Basic Metabolic Panelon 02-0 Anion gap [Moles/Vol] 11 mmol/L 9 - 17 mmol/L [place] Bun/Cre Ratio NOT REPORTED [place] Calcium [Mass/Vol] 7.4 mg/dL Low 8.6 - 10. 4 mg/dL [place] Chloride [Moles/Vol] 113 mmol/L High 98 - 10 7 mmol/L [place] CO2 [Moles/Vol] 14 mmol/L Low 20 - 31 mmol/L [place] Creatinine [Mass/Vol] 0.49 mg/dL Low 0.5 - 0.9 mg/dL [place] GFR >60 >60 mL/min [place] GFR Non- >60 >60 mL/min [place] GFR/1.73 sq M predicted among non-blacks MDRD (S/P/Bld) [Vol rate/Area] NOT REPORTED [place] GFR/1.73 sq M predicted among non-blacks MDRD (S/P/Bld) [Vol rate/Area] [place] Comment on above: Average GFR for 20-2 9 years old: 116 mL/min/1.73sq m Chronic Kidney Disease: <60 mL/min/1.73sq m Kidney failure: <15 mL/min/1.73sq m eGFR calculated using average adult body mass. Additional eGFR calculator available at: http://www.[employer]/multiple_crcl_2012.htm Glucose [Mass/Vol] 262 mg/dL High 70 - 99 mg/dL [place] Potassium [Moles/Vol] 3.5 mmol/L Low 3.7 - 5.3 mmol/L [place] Sodium [Moles/Vol] 138 mmol/L 135 - 144 mmol/L [place] Urea nitrogen [Mass/Vol] 6 mg/dL 6 - 20 mg/d L [place] Anion gap [Moles/Vol] 9 mmol/L 9 - 17 mmol/L [place] Bun/Cre Ratio NOT REPORTED [place] Calcium [Mass/Vol] 7.8 mg/dL Low 8.6 - 10. 4 mg/dL [place] Chloride [Moles/Vol] 112 mmol/L High 98 - 10 7 mmol/L [place] CO2 [Moles/Vol] 15 mmol/L Low 20 - 31 mmol/L [place] Creatinine [Mass/Vol] 0.5 mg/dL 0.5 - 0.9 mg/dL [place] GFR >60 >60 mL/min [place] GFR Non- >60 >60 mL/min [place] GFR/1.73 sq M predicted among non-blacks MDRD (S/P/Bld) [Vol rate/Area] NOT REPORTED [place] GFR/1.73 sq M predicted among non-blacks MDRD (S/P/Bld) [Vol rate/Area] [place] Comment on above: Average GFR for 20-2 9 years old: 116 mL/min/1.73sq m Chronic Kidney Disease: <60 mL/min/1.73sq m Kidney failure: <15 mL/min/1.73sq m eGFR calculated using average adult body mass. Additional eGFR calculator available at: http://www.[employer]/multiple_crcl_2012.htm Glucose [Mass/Vol] 138 mg/dL High 70 - 99 mg/dL [place] Potassium [Moles/Vol] 3.5 mmol/L Low 3.7 - 5.3 mmol/L [place] Sodium [Moles/Vol] 136 mmol/L 135 - 144 mmol/L [place] Urea nitrogen [Mass/Vol] 6 mg/dL 6 - 20 mg/d L [place] Anion gap [Moles/Vol] 12 mmol/L 9 - 17 mmol/L [place] Bun/Cre Ratio NOT REPORTED [place] Calcium [Mass/Vol] 6.9 mg/dL Low 8.6 - 10. 4 mg/dL [place] Chloride [Moles/Vol] 113 mmol/L High 98 - 10 7 mmol/L [place] CO2 [Moles/Vol] 10 mmol/L Low 20 - 31 mmol/L [place] Creatinine [Mass/Vol] 0.57 mg/dL 0.5 - 0.9 mg/dL [place] GFR >60 >60 mL/min [place] GFR Non- >60 >60 mL/min [place] GFR/1.73 sq M predicted among non-blacks MDRD (S/P/Bld) [Vol rate/Area] NOT REPORTED [place] GFR/1.73 sq M predicted among non-blacks MDRD (S/P/Bld) [Vol rate/Area] [place] Comment on above: Average GFR for 20-2 9 years old: 116 mL/min/1.73sq m Chronic Kidney Disease: <60 mL/min/1.73sq m Kidney failure: <15 mL/min/1.73sq m eGFR calculated using average adult body mass. Additional eGFR calculator available at: http://www.[facility]/multiple_crcl_2012.htm Glucose [Mass/Vol] 418 mg/dL Critically high 70 - 9 9 mg/dL [place] Potassium [Moles/Vol] 3.9 mmol/L 3.7 - 5.3 mmol/L [place] Comment on above: SPECIMEN SLIGHTLY HE MOLYZED, RESULTS MAY BE ADVERSELY AFFECTED. Sodium [Moles/Vol] 135 mmol/L 135 - 144 mmol/L [place] Urea nitrogen [Mass/Vol] 7 mg/dL 6 - 20 mg/d L [place] Anion gap [Moles/Vol] 8 mmol/L Low 9 - 17 mmol/L [place] Bun/Cre Ratio NOT REPORTED [place] Calcium [Mass/Vol] 7.0 mg/dL Low 8.6 - 10. 4 mg/dL [place] Chloride [Moles/Vol] 115 mmol/L High 98 - 10 7 mmol/L [place] CO2 [Moles/Vol] 15 mmol/L Low 20 - 31 mmol/L [place] Creatinine [Mass/Vol] 0.53 mg/dL 0.5 - 0.9 mg/dL [place] GFR >60 >60 mL/min [place] GFR Non- >60 >60 mL/min [place] GFR/1.73 sq M predicted among non-blacks MDRD (S/P/Bld) [Vol rate/Area] [place] Comment on above: Average GFR for 20-2 9 years old: 116 mL/min/1.73sq m Chronic Kidney Disease: <60 mL/min/1.73sq m Kidney failure: <15 mL/min/1.73sq m eGFR calculated using average adult body mass. Additional eGFR calculator available at: http://www.[email or web address]_crcl_[email or web address] GFR/1.73 sq M predicted among non-blacks MDRD (S/P/Bld) [Vol rate/Area] NOT REPORTED [place] Glucose [Mass/Vol] 150 mg/dL High 70 - 99 mg/dL [place] Potassium [Moles/Vol] 3.3 mmol/L Low 3.7 - 5.3 mmol/L [place] Sodium [Moles/Vol] 138 mmol/L 135 - 144 mmol/L [place] Urea nitrogen [Mass/Vol] 9 mg/dL 6 - 20 mg/d L [place] Anion gap [Moles/Vol] 7 mmol/L Low 9 - 17 mmol/L [place] Bun/Cre Ratio NOT REPORTED [place] Calcium [Mass/Vol] 6.8 mg/dL Low 8.6 - 10. 4 mg/dL [place] Chloride [Moles/Vol] 114 mmol/L High 98 - 10 7 mmol/L [place] CO2 [Moles/Vol] 16 mmol/L Low 20 - 31 mmol/L [place] Creatinine [Mass/Vol] 0.51 mg/dL 0.5 - 0.9 mg/dL [place] GFR >60 >60 mL/min [place] GFR Non- >60 >60 mL/min [place] GFR/1.73 sq M predicted among non-blacks MDRD (S/P/Bld) [Vol rate/Area] [place] Comment on above: Average GFR for 20-2 9 years old: 116 mL/min/1.73sq m Chronic Kidney Disease: <60 mL/min/1.73sq m Kidney failure: <15 mL/min/1.73sq m eGFR calculated using average adult body mass. Additional eGFR calculator available at: http://www.[email or web address]_crcl_[email or web address] GFR/1.73 sq M predicted among non-blacks MDRD (S/P/Bld) [Vol rate/Area] NOT REPORTED [place] Glucose [Mass/Vol] 190 mg/dL High 70 - 99 mg/dL [place] Potassium [Moles/Vol] 3.7 mmol/L 3.7 - 5.3 mmol/L [place] Sodium [Moles/Vol] 137 mmol/L 135 - 144 mmol/L [place] Urea nitrogen [Mass/Vol] 11 mg/dL 6 - 20 mg/d L [place] Anion gap [Moles/Vol] 6 mmol/L Low 9 - 17 mmol/L [place] Bun/Cre Ratio NOT REPORTED [place] Calcium [Mass/Vol] 6.9 mg/dL Low 8.6 - 10. 4 mg/dL [place] Chloride [Moles/Vol] 115 mmol/L High 98 - 10 7 mmol/L [place] CO2 [Moles/Vol] 17 mmol/L Low 20 - 31 mmol/L [place] Creatinine [Mass/Vol] 0.56 mg/dL 0.5 - 0.9 mg/dL [place] GFR >60 >60 mL/min [place] GFR Non- >60 >60 mL/min [place] GFR/1.73 sq M predicted among non-blacks MDRD (S/P/Bld) [Vol rate/Area] NOT REPORTED [place] GFR/1.73 sq M predicted among non-blacks MDRD (S/P/Bld) [Vol rate/Area] [place] Comment on above: Average GFR for 20-2 9 years old: 116 mL/min/1.73sq m Chronic Kidney Disease: <60 mL/min/1.73sq m Kidney failure: <15 mL/min/1.73sq m eGFR calculated using average adult body mass. Additional eGFR calculator available at: http://www.[email or web address]/multiple_crcl_[email or web address] Glucose [Mass/Vol] 180 mg/dL High 70 - 99 mg/dL [place] Potassium [Moles/Vol] 3.9 mmol/L 3.7 - 5.3 mmol/L [place] Sodium [Moles/Vol] 138 mmol/L 135 - 144 mmol/L [place] Urea nitrogen [Mass/Vol] 11 mg/dL 6 - 20 mg/d L [place] CALCIUM, IONIC (POC)on 07-31 POC Ionized Calcium 1.07 mmol/L Low 1.15 - 1 .33 mmol/L [place] CHLORIDE (POC)on 07-31-2020 Chloride [Moles/Vol] 116 mmol/L High 98 - 10 7 mmol/L [place] Creatinine W/GFR Point of Ca reon 07-31-2020 Creatinine [Mass/Vol] 0.78 mg/dL 0.51 - 1.19 mg/dL [place] GFR Non- >60 >60 mL/min [place] GFR/1.73 sq M predicted among non-blacks MDRD (S/P/Bld) [Vol rate/Area] mL/min/{1.73_m2} >60 mL/min [place] GFR/1.73 sq M predicted among non-blacks MDRD (S/P/Bld) [Vol rate/Area] [place] Comment on above: Average GFR for 20-2 9 years old: 116 mL/min/1.73sq m Chronic Kidney Disease: <60 mL/min/1.73sq m Kidney failure: <15 mL/min/1.73sq m eGFR calculated using average adult body mass. Additional eGFR calculator available at: http://www.[facility]/multiple_crcl_2012.htm Hemoglobin and hematocrit, b loodon 07-31-2020 Hematocrit (Bld) [Volume fraction] 44 % 36 - 46 % [place] Hemoglobin (Bld) [Mass/Vol] 14.9 g/dL 12 - 16 g/dL [place] Lactic Acid, POCon POC Lactic Acid 0.60 mmol/L 0.56 - 1.39 mmol/L [place] Magnesiumon 07-31-2020 Magnesium [Mass/Vol] 1.9 mg/dL 1.6 - 2 .6 mg/dL [place] Magnesium [Mass/Vol] 2.2 mg/dL 1.6 - 2 .6 mg/dL [place] Magnesium [Mass/Vol] 1.4 mg/dL Low 1.6 - 2 .6 mg/dL [place] Magnesium [Mass/Vol] 1.7 mg/dL 1.6 - 2 .6 mg/dL [place] Magnesium [Mass/Vol] 1.7 mg/dL 1.6 - 2 .6 mg/dL [place] Magnesium [Mass/Vol] 1.8 mg/dL 1.6 - 2 .6 mg/dL [place] Otheron 07-31-2020 Interpretation and review of laboratory results Abnormal [place] Interpretation and review of laboratory results Abnormal [place] Interpretation and review of laboratory results Abnormal [place] Interpretation and review of laboratory results Abnormal [place] Interpretation and review of laboratory results Abnormal [place] Interpretation and review of laboratory results Abnormal [place] Interpretation and review of laboratory results Abnormal [place] POC Glucose Fingerstickon Glucose [Mass/Vol] 201 mg/dL High 65 - 105 mg/dL [place] Interpretation and review of laboratory results Abnormal [place] Glucose [Mass/Vol] 162 mg/dL High 65 - 105 mg/dL [place] Interpretation and review of laboratory results Abnormal [place] Glucose [Mass/Vol] 124 mg/dL High 65 - 105 mg/dL [place] Interpretation and review of laboratory results Abnormal [place] Glucose [Mass/Vol] 117 mg/dL High 65 - 105 mg/dL [place] Interpretation and review of laboratory results Abnormal [place] Glucose [Mass/Vol] 137 mg/dL High 65 - 105 mg/dL [place] Interpretation and review of laboratory results Abnormal [place] Glucose [Mass/Vol] 173 mg/dL High 65 - 105 mg/dL [place] Interpretation and review of laboratory results Abnormal [place] Glucose [Mass/Vol] 266 mg/dL High 65 - 105 mg/dL [place] Interpretation and review of laboratory results Abnormal [place] Glucose [Mass/Vol] 320 mg/dL High 65 - 105 mg/dL [place] Interpretation and review of laboratory results Abnormal [place] Glucose [Mass/Vol] 400 mg/dL High 65 - 105 mg/dL [place] Interpretation and review of laboratory results Abnormal [place] Glucose [Mass/Vol] 157 mg/dL High 65 - 105 mg/dL [place] Interpretation and review of laboratory results Abnormal [place] Glucose [Mass/Vol] 130 mg/dL High 65 - 105 mg/dL [place] Interpretation and review of laboratory results Abnormal [place] Glucose [Mass/Vol] 139 mg/dL High 65 - 105 mg/dL [place] Interpretation and review of laboratory results Abnormal [place] Glucose [Mass/Vol] 156 mg/dL High 65 - 105 mg/dL [place] Interpretation and review of laboratory results Abnormal [place] Glucose [Mass/Vol] 193 mg/dL High 65 - 105 mg/dL [place] Interpretation and review of laboratory results Abnormal [place] Glucose [Mass/Vol] 207 mg/dL High 65 - 105 mg/dL [place] Interpretation and review of laboratory results Abnormal [place] Glucose [Mass/Vol] 211 mg/dL High 65 - 105 mg/dL [place] Interpretation and review of laboratory results Abnormal [place] Glucose [Mass/Vol] 167 mg/dL High 65 - 105 mg/dL [place] Interpretation and review of laboratory results Abnormal [place] Glucose [Mass/Vol] 145 mg/dL High 65 - 105 mg/dL [place] Interpretation and review of laboratory results Abnormal [place] Glucose [Mass/Vol] 156 mg/dL High 65 - 105 mg/dL [place] Interpretation and review of laboratory results Abnormal [place] Glucose [Mass/Vol] 171 mg/dL High 65 - 105 mg/dL [place] Interpretation and review of laboratory results Abnormal [place] Glucose [Mass/Vol] 165 mg/dL High 65 - 105 mg/dL [place] Interpretation and review of laboratory results Abnormal [place] Glucose [Mass/Vol] 144 mg/dL High 65 - 105 mg/dL [place] Interpretation and review of laboratory results Abnormal [place] POCT Glucoseon 07-31-2020 Glucose [Mass/Vol] 372 mg/dL High 74 - 100 mg/dL [place] POTASSIUM (POC)on 07-31-2020 Potassium [Moles/Vol] 3.9 mmol/L 3.5 - 4.5 mmol/L [place] Phosphoruson 07-31-2020 Phosphate [Mass/Vol] 1.9 mg/dL Low 2.6 - 4 .5 mg/dL [place] Phosphate [Mass/Vol] 1.7 mg/dL Low 2.6 - 4 .5 mg/dL [place] Phosphate [Mass/Vol] 1.8 mg/dL Low 2.6 - 4 .5 mg/dL [place] Phosphate [Mass/Vol] 1.5 mg/dL Low 2.6 - 4 .5 mg/dL [place] Phosphate [Mass/Vol] 1.7 mg/dL Low 2.6 - 4 .5 mg/dL [place] Phosphate [Mass/Vol] 1.5 mg/dL Low 2.6 - 4 .5 mg/dL [place] SODIUM (POC)on 07-31-2020 Sodium [Moles/Vol] 136 mmol/L Low 138 - 146 mmol/L [place] Acetaminophen Levelon 2020 Acetaminophen [Mass/Vol] <5 Low 10 - 30 ug/mL [place] Interpretation and review of laboratory results Abnormal [place] Arterial Blood Gas, POCon Cami Test NOT REPORTED [place] aPTT Coag (Bld) [Time] NOT REPORTED [place] FIO2 35.0 [place] Interpretation and review of laboratory results Abnormal [place] Mode NOT REPORTED [place] Negative Base Excess, Art 10 High [place] O2 Device/Flow/% BIPAP [place] Oxygen saturation in Blood 98 % 94 - 98 % [place] POC HCO3 12.9 mmol/L Low 21 - 28 mmol/L [place] POC pCO2 20.8 Low [place] POC pCO2 Temp NOT REPORTED mm Hg [place] POC pH 7.402 [place] POC pH Temp NOT REPORTED [place] POC PO2 98.2 [place] POC pO2 Temp NOT REPORTED mm Hg [place] Positive Base Excess, Art NOT REPORTED [place] Sample Site Arterial Line [place] TCO2 (calc), Art 14 mmol/L Low 22 - 29 mmol/L [place] Cami Test NOT REPORTED [place] aPTT Coag (Bld) [Time] 37.1 s [place] FIO2 40.0 [place] Mode Bi-Level Ventilation [place] Negative Base Excess, Art 16 High [place] O2 Device/Flow/% BIPAP [place] Oxygen saturation in Blood 96 % 94 - 98 % [place] POC HCO3 7.0 mmol/L Critically low 21 - 28 mmol/L [place] POC pCO2 14.0 Low [place] POC pCO2 Temp NOT REPORTED mm Hg [place] POC pH 7.310 Low [place] POC pH Temp NOT REPORTED [place] POC PO2 86.1 [place] POC pO2 Temp NOT REPORTED mm Hg [place] Positive Base Excess, Art NOT REPORTED [place] Sample Site Arterial Line [place] TCO2 (calc), Art 7 mmol/L Low 22 - 29 mmol/L [place] Cami Test NOT REPORTED [place] aPTT Coag (Bld) [Time] 36.3 s [place] FIO2 50.0 [place] Mode Bi-Level Ventilation [place] Negative Base Excess, Art 22 High [place] O2 Device/Flow/% BIPAP [place] Oxygen saturation in Blood 96 % 94 - 98 % [place] POC HCO3 5.2 mmol/L Critically low 21 - 28 mmol/L [place] POC pCO2 16.0 Low [place] POC pCO2 Temp NOT REPORTED mm Hg [place] POC pH 7.123 Critically low [place] POC pH Temp NOT REPORTED [place] POC PO2 109.8 High [place] POC pO2 Temp NOT REPORTED mm Hg [place] Positive Base Excess, Art NOT REPORTED [place] Sample Site Arterial Line [place] TCO2 (calc), Art 6 mmol/L Low 22 - 29 mmol/L [place] Cami Test NOT REPORTED [place] aPTT Coag (Bld) [Time] 36.1 s [place] FIO2 30.0 [place] Mode NOT REPORTED [place] Negative Base Excess, Art 24 High [place] O2 Device/Flow/% Adult Ventilator [place] Oxygen saturation in Blood 89 % Low 94 - 98 % [place] POC HCO3 4.3 mmol/L Critically low 21 - 28 mmol/L [place] POC pCO2 14.4 Low [place] POC pCO2 Temp NOT REPORTED mm Hg [place] POC pH 7.082 Critically low [place] POC pH Temp NOT REPORTED [place] POC PO2 75.9 Low [place] POC pO2 Temp NOT REPORTED mm Hg [place] Positive Base Excess, Art NOT REPORTED [place] Sample Site Arterial Line [place] TCO2 (calc), Art <5 Low 22 - 29 mmol/L [place] Basic Metabolic Panelon 07-02 Anion gap [Moles/Vol] 5 mmol/L Low 9 - 17 mmol/L [place] Bun/Cre Ratio NOT REPORTED [place] Calcium [Mass/Vol] 6.9 mg/dL Low 8.6 - 10. 4 mg/dL [place] Chloride [Moles/Vol] 113 mmol/L High 98 - 10 7 mmol/L [place] CO2 [Moles/Vol] 17 mmol/L Low 20 - 31 mmol/L [place] Creatinine [Mass/Vol] 0.51 mg/dL 0.5 - 0.9 mg/dL [place] GFR >60 >60 mL/min [place] GFR Non- >60 >60 mL/min [place] GFR/1.73 sq M predicted among non-blacks MDRD (S/P/Bld) [Vol rate/Area] NOT REPORTED [place] GFR/1.73 sq M predicted among non-blacks MDRD (S/P/Bld) [Vol rate/Area] [place] Comment on above: Average GFR for 20-2 9 years old: 116 mL/min/1.73sq m Chronic Kidney Disease: <60 mL/min/1.73sq m Kidney failure: <15 mL/min/1.73sq m eGFR calculated using average adult body mass. Additional eGFR calculator available at: http://www.[employer]/multiple_crcl_2012.htm Glucose [Mass/Vol] 175 mg/dL High 70 - 99 mg/dL [place] Potassium [Moles/Vol] 3.4 mmol/L Low 3.7 - 5.3 mmol/L [place] Sodium [Moles/Vol] 135 mmol/L 135 - 144 mmol/L [place] Urea nitrogen [Mass/Vol] 14 mg/dL 6 - 20 mg/d L [place] Anion gap [Moles/Vol] 6 mmol/L Low 9 - 17 mmol/L [place] Bun/Cre Ratio NOT REPORTED [place] Calcium [Mass/Vol] 7.1 mg/dL Low 8.6 - 10. 4 mg/dL [place] Chloride [Moles/Vol] 115 mmol/L High 98 - 10 7 mmol/L [place] CO2 [Moles/Vol] 18 mmol/L Low 20 - 31 mmol/L [place] Creatinine [Mass/Vol] 0.59 mg/dL 0.5 - 0.9 mg/dL [place] GFR >60 >60 mL/min [place] GFR Non- >60 >60 mL/min [place] GFR/1.73 sq M predicted among non-blacks MDRD (S/P/Bld) [Vol rate/Area] NOT REPORTED [place] GFR/1.73 sq M predicted among non-blacks MDRD (S/P/Bld) [Vol rate/Area] [place] Comment on above: Average GFR for 20-2 9 years old: 116 mL/min/1.73sq m Chronic Kidney Disease: <60 mL/min/1.73sq m Kidney failure: <15 mL/min/1.73sq m eGFR calculated using average adult body mass. Additional eGFR calculator available at: http://www.[facility]/multiple_crcl_2012.htm Glucose [Mass/Vol] 113 mg/dL High 70 - 99 mg/dL [place] Potassium [Moles/Vol] 3.2 mmol/L Low 3.7 - 5.3 mmol/L [place] Sodium [Moles/Vol] 139 mmol/L 135 - 144 mmol/L [place] Urea nitrogen [Mass/Vol] 17 mg/dL 6 - 20 mg/d L [place] Anion gap [Moles/Vol] 9 mmol/L 9 - 17 mmol/L [place] Bun/Cre Ratio NOT REPORTED [place] Calcium [Mass/Vol] 7.0 mg/dL Low 8.6 - 10. 4 mg/dL [place] Chloride [Moles/Vol] 114 mmol/L High 98 - 10 7 mmol/L [place] CO2 [Moles/Vol] 17 mmol/L Low 20 - 31 mmol/L [place] Creatinine [Mass/Vol] 0.78 mg/dL 0.5 - 0.9 mg/dL [place] GFR >60 >60 mL/min [place] GFR Non- >60 >60 mL/min [place] GFR/1.73 sq M predicted among non-blacks MDRD (S/P/Bld) [Vol rate/Area] [place] Comment on above: Average GFR for 20-2 9 years old: 116 mL/min/1.73sq m Chronic Kidney Disease: <60 mL/min/1.73sq m Kidney failure: <15 mL/min/1.73sq m eGFR calculated using average adult body mass. Additional eGFR calculator available at: http://www.[facility]/multiple_crcl_2012.htm GFR/1.73 sq M predicted among non-blacks MDRD (S/P/Bld) [Vol rate/Area] NOT REPORTED [place] Glucose [Mass/Vol] 132 mg/dL High 70 - 99 mg/dL [place] Potassium [Moles/Vol] 3.1 mmol/L Low 3.7 - 5.3 mmol/L [place] Sodium [Moles/Vol] 140 mmol/L 135 - 144 mmol/L [place] Urea nitrogen [Mass/Vol] 20 mg/dL 6 - 20 mg/d L [place] Anion gap [Moles/Vol] 9 mmol/L 9 - 17 mmol/L [place] Bun/Cre Ratio NOT REPORTED [place] Calcium [Mass/Vol] 7.1 mg/dL Low 8.6 - 10. 4 mg/dL [place] Chloride [Moles/Vol] 113 mmol/L High 98 - 10 7 mmol/L [place] CO2 [Moles/Vol] 17 mmol/L Low 20 - 31 mmol/L [place] Creatinine [Mass/Vol] 0.81 mg/dL 0.5 - 0.9 mg/dL [place] GFR >60 >60 mL/min [place] GFR Non- >60 >60 mL/min [place] GFR/1.73 sq M predicted among non-blacks MDRD (S/P/Bld) [Vol rate/Area] [place] Comment on above: Average GFR for 20-2 9 years old: 116 mL/min/1.73sq m Chronic Kidney Disease: <60 mL/min/1.73sq m Kidney failure: <15 mL/min/1.73sq m eGFR calculated using average adult body mass. Additional eGFR calculator available at: http://www.[employer]/multiple_crcl_2012.htm GFR/1.73 sq M predicted among non-blacks MDRD (S/P/Bld) [Vol rate/Area] NOT REPORTED [place] Glucose [Mass/Vol] 238 mg/dL High 70 - 99 mg/dL [place] Potassium [Moles/Vol] 2.4 mmol/L Critically low 3.7 - 5.3 mmol/L [place] Sodium [Moles/Vol] 139 mmol/L 135 - 144 mmol/L [place] Urea nitrogen [Mass/Vol] 23 mg/dL High 6 - 20 mg/d L [place] Anion gap [Moles/Vol] 23 mmol/L High 9 - 17 mmol/L [place] Bun/Cre Ratio NOT REPORTED [place] Calcium [Mass/Vol] 7.2 mg/dL Low 8.6 - 10. 4 mg/dL [place] Chloride [Moles/Vol] 111 mmol/L High 98 - 10 7 mmol/L [place] CO2 [Moles/Vol] 8 mmol/L Critically low 20 - 31 mmol/L [place] Creatinine [Mass/Vol] 1.08 mg/dL High 0.5 - 0.9 mg/dL [place] GFR >60 >60 mL/min [place] GFR Non- >60 >60 mL/min [place] GFR/1.73 sq M predicted among non-blacks MDRD (S/P/Bld) [Vol rate/Area] [place] Comment on above: Average GFR for 20-2 9 years old: 116 mL/min/1.73sq m Chronic Kidney Disease: <60 mL/min/1.73sq m Kidney failure: <15 mL/min/1.73sq m eGFR calculated using average adult body mass. Additional eGFR calculator available at: http://www.[facility]/multiple_crcl_2012.htm GFR/1.73 sq M predicted among non-blacks MDRD (S/P/Bld) [Vol rate/Area] NOT REPORTED [place] Glucose [Mass/Vol] 322 mg/dL High 70 - 99 mg/dL [place] Potassium [Moles/Vol] 3.8 mmol/L 3.7 - 5.3 mmol/L [place] Sodium [Moles/Vol] 142 mmol/L 135 - 144 mmol/L [place] Urea nitrogen [Mass/Vol] 28 mg/dL High 6 - 20 mg/d L [place] Anion gap [Moles/Vol] Unable to calculat e anion gap due to CO2 less than 6. 9 - 17 mmol/L [place] Bun/Cre Ratio NOT REPORTED [place] Calcium [Mass/Vol] 6.9 mg/dL Low 8.6 - 10. 4 mg/dL [place] Chloride [Moles/Vol] 109 mmol/L High 98 - 10 7 mmol/L [place] CO2 [Moles/Vol] mmol/L Critically low 20 - 31 mmol/L [place] Creatinine [Mass/Vol] 0.89 mg/dL 0.5 - 0.9 mg/dL [place] GFR >60 >60 mL/min [place] GFR Non- >60 >60 mL/min [place] GFR/1.73 sq M predicted among non-blacks MDRD (S/P/Bld) [Vol rate/Area] NOT REPORTED [place] GFR/1.73 sq M predicted among non-blacks MDRD (S/P/Bld) [Vol rate/Area] [place] Comment on above: Average GFR for 20-2 9 years old: 116 mL/min/1.73sq m Chronic Kidney Disease: <60 mL/min/1.73sq m Kidney failure: <15 mL/min/1.73sq m eGFR calculated using average adult body mass. Additional eGFR calculator available at: http://www.[employer]/multiple_crcl_2012.htm Glucose [Mass/Vol] 275 mg/dL High 70 - 99 mg/dL [place] Interpretation and review of laboratory results Abnormal [place] Potassium [Moles/Vol] 3.4 mmol/L Low 3.7 - 5.3 mmol/L [place] Sodium [Moles/Vol] 139 mmol/L 135 - 144 mmol/L [place] Urea nitrogen [Mass/Vol] 29 mg/dL High 6 - 20 mg/d L [place] CBC WITH AUTO DIFFERENTIALon 07-30-2020 Basophils (Bld) [#/Vol] 0.00 10*3/uL [place] Basophils/100 WBC (Bld) 0 % 0 - 2 % M [place] Differential Type NOT REPORTED [place] Eosinophils (Bld) [#/Vol] 0.00 10*3/uL [place] Eosinophils/100 WBC (Bld) 0 % Low 1 - 4 % [place] Erythrocyte distribution width (RBC) [Ratio] 13.2 % 11.8 - 14.4 % [place] Hematocrit (Bld) [Volume fraction] 38.1 % 36.3 - 47.1 % [place] Hemoglobin (Bld) [Mass/Vol] 12.9 g/dL 11.9 - 15.1 g/dL [place] Immature granulocytes (Bld) [#/Vol] 2 % High 0 [place] Immature granulocytes (Bld) [#/Vol] 0.28 10*3/uL [place] Interpretation and review of laboratory results Abnormal [place] Lymphocytes (Bld) [#/Vol] 0.70 10*3/uL [place] Lymphocytes/100 WBC (Bld) 5 % Low 24 - 43 % [place] MCH (RBC) [Entitic mass] 26.2 pg 25. 2 - 33.5 pg [place] MCHC (RBC) [Mass/Vol] 33.9 g/dL 28.4 - 34.8 g/dL [place] MCV (RBC) [Entitic vol] 77.3 fL Low 82.6 - 102.9 fL [place] Monocytes (Bld) [#/Vol] 0.56 10*3/uL [place] Monocytes/100 WBC (Bld) 4 % 3 - 12 % [place] Morphology Calvin (Bld) [Interp] MICROCYTOSIS PRESENT [place] Morphology Calvin (Bld) [Interp] ANISOCYTOSIS PRESENT [place] Platelet mean volume (Bld) [Entitic vol] 9.8 fL 8.1 - 13.5 fL [place] Platelets (Bld) [#/Vol] 228 10*3/uL [place] Platelets (Bld) [#/Vol] NOT REPORTED [place] RBC (Bld) [#/Vol] 4.93 10*6/uL 3.95 - 5.1 1 m/uL [place] RBC morphology finding Nom (Bld) NOT REPORTED [place] Segmented neutrophils/100 WBC (Bld) 89 % High 36 - 65 % [place] Segs Absolute 12.36 High [place] WBC (Bld) [#/Vol] 0.0 10*3/uL 0.0 per 10 0 WBC [place] WBC (Bld) [#/Vol] 13.9 10*3/uL [place] WBC Morphology NOT REPORTED [place] Ethanolon 07-30-2020 Ethanol [Mass/Vol] mg/dL <10 mg/dL [place] Ethanol percent <0.010 <0.010 % [place] Hepatic Function Panelon Albumin [Mass/Vol] 3 g/dL Low 3.5 - 5.2 g/dL [place] Albumin/Globulin [Mass ratio] 1.3 {ratio} [place] ALP [Catalytic activity/Vol] 103 U/L 35 - 104 U/L [place] ALT [Catalytic activity/Vol] 16 U/L 5 - 33 U/L [place] AST [Catalytic activity/Vol] 39 U/L High <32 [place] Bilirubin Ql (U) <0.10 Low 0.3 - 1.2 mg/dL [place] Bilirubin, Indirect CANNOT BE CALCULATED 0 - 1 mg/dL [place] Bilirubin.direct [Mass/Vol] mg/dL <0.31 mg/dL [place] Globulin (S) [Mass/Vol] NOT REPORTED 1.5 - 3.8 g/dL [place] Interpretation and review of laboratory results Abnormal [place] Protein [Mass/Vol] 5.3 g/dL Low 6.4 - 8.3 g/dL [place] Lactic Acid, POCon POC Lactic Acid 0.87 mmol/L 0.56 - 1.39 mmol/L [place] POC Lactic Acid 0.80 mmol/L 0.56 - 1.39 mmol/L [place] POC Lactic Acid 0.79 mmol/L 0.56 - 1.39 mmol/L [place] Lipaseon 07-30-2020 Lipase [Catalytic activity/Vol] 24 U/L 13 - 60 U/L [place] MRSA by PCRon 07-30-2020 Direct Exam POSITIVE: MRSA DNA detected by nucleic acid amplification. Results should be used as an adjunct to nosocomial control efforts to identify patients needing enhanced precautions. The test is not intended to identify patients with staphylococcal infections. Results should not be used to guide or monitor treatment for MRSA infections. Abnormal [place] Interpretation and review of laboratory results Abnormal [place] Special Requests NOT REPORTED [place] Specimen Description .NASAL SWAB [place] Magnesiumon 07-30-2020 Magnesium [Mass/Vol] 1.6 mg/dL 1.6 - 2 .6 mg/dL [place] Magnesium [Mass/Vol] 1.8 mg/dL 1.6 - 2 .6 mg/dL [place] Magnesium [Mass/Vol] 2.0 mg/dL 1.6 - 2 .6 mg/dL [place] Magnesium [Mass/Vol] 2.0 mg/dL 1.6 - 2 .6 mg/dL [place] Magnesium [Mass/Vol] 1.6 mg/dL 1.6 - 2 .6 mg/dL [place] Magnesium [Mass/Vol] 1.6 mg/dL 1.6 - 2 .6 mg/dL [place] Microscopic Urinalysison Amorphous, UA 1+ Abnormal None [place] Bacteria, UA NOT REPORTED None [place] Casts UA HYALINE [place] Casts UA 0 TO 2 [place] Crystals, UA NOT REPORTED None /HPF [place] Epithelial Cells UA 5 TO 10 [place] Interpretation and review of laboratory results Abnormal [place] Mucus, UA NOT REPORTED None [place] Other Observations UA NOT REPORTED NOT REQ. M [place] RBC (U) [#/Vol] 0 TO 2 [place] Renal Epithelial, UA NOT REPORTED 0 /HPF [place] Trichomonas, UA NOT REPORTED None [place] WBC, UA 2 TO 5 [place] Yeast, UA NOT REPORTED None [place] Otheron 07-30-2020 Interpretation and review of laboratory results Abnormal [place] Interpretation and review of laboratory results Abnormal [place] Interpretation and review of laboratory results Abnormal [place] Interpretation and review of laboratory results Abnormal [place] Interpretation and review of laboratory results Abnormal [place] Interpretation and review of laboratory results Abnormal [place] Interpretation and review of laboratory results Abnormal [place] Interpretation and review of laboratory results Abnormal [place] POC Glucose Fingerstickon Glucose [Mass/Vol] 148 mg/dL High 65 - 105 mg/dL [place] Interpretation and review of laboratory results Abnormal [place] Glucose [Mass/Vol] 170 mg/dL High 65 - 105 mg/dL [place] Interpretation and review of laboratory results Abnormal [place] Glucose [Mass/Vol] 156 mg/dL High 65 - 105 mg/dL [place] Interpretation and review of laboratory results Abnormal [place] Glucose [Mass/Vol] 140 mg/dL High 65 - 105 mg/dL [place] Interpretation and review of laboratory results Abnormal [place] Glucose [Mass/Vol] 109 mg/dL High 65 - 105 mg/dL [place] Interpretation and review of laboratory results Abnormal [place] Glucose [Mass/Vol] 112 mg/dL High 65 - 105 mg/dL [place] Interpretation and review of laboratory results Abnormal [place] Glucose [Mass/Vol] 111 mg/dL High 65 - 105 mg/dL [place] Interpretation and review of laboratory results Abnormal [place] Glucose [Mass/Vol] 130 mg/dL High 65 - 105 mg/dL [place] Interpretation and review of laboratory results Abnormal [place] Glucose [Mass/Vol] 143 mg/dL High 65 - 105 mg/dL [place] Interpretation and review of laboratory results Abnormal [place] Glucose [Mass/Vol] 126 mg/dL High 65 - 105 mg/dL [place] Interpretation and review of laboratory results Abnormal [place] Glucose [Mass/Vol] 126 mg/dL High 65 - 105 mg/dL [place] Interpretation and review of laboratory results Abnormal [place] Glucose [Mass/Vol] 174 mg/dL High 65 - 105 mg/dL [place] Interpretation and review of laboratory results Abnormal [place] Glucose [Mass/Vol] 214 mg/dL High 65 - 105 mg/dL [place] Interpretation and review of laboratory results Abnormal [place] Glucose [Mass/Vol] 214 mg/dL High 65 - 105 mg/dL [place] Interpretation and review of laboratory results Abnormal [place] Glucose [Mass/Vol] 252 mg/dL High 65 - 105 mg/dL [place] Interpretation and review of laboratory results Abnormal [place] Glucose [Mass/Vol] 281 mg/dL High 65 - 105 mg/dL [place] Interpretation and review of laboratory results Abnormal [place] Glucose [Mass/Vol] 291 mg/dL High 65 - 105 mg/dL [place] Interpretation and review of laboratory results Abnormal [place] Glucose [Mass/Vol] 283 mg/dL High 65 - 105 mg/dL [place] Interpretation and review of laboratory results Abnormal [place] Glucose [Mass/Vol] 275 mg/dL High 65 - 105 mg/dL [place] Interpretation and review of laboratory results Abnormal [place] Glucose [Mass/Vol] 264 mg/dL High 65 - 105 mg/dL [place] Interpretation and review of laboratory results Abnormal [place] Glucose [Mass/Vol] 270 mg/dL High 65 - 105 mg/dL [place] Interpretation and review of laboratory results Abnormal [place] Glucose [Mass/Vol] 244 mg/dL High 65 - 105 mg/dL [place] Interpretation and review of laboratory results Abnormal [place] Glucose [Mass/Vol] 226 mg/dL High 65 - 105 mg/dL [place] Interpretation and review of laboratory results Abnormal [place] Glucose [Mass/Vol] 272 mg/dL High 65 - 105 mg/dL [place] Interpretation and review of laboratory results Abnormal [place] Glucose [Mass/Vol] 290 mg/dL High 65 - 105 mg/dL [place] Interpretation and review of laboratory results Abnormal [place] POCT Glucoseon 07-30-2020 Glucose [Mass/Vol] 296 mg/dL High 74 - 100 mg/dL [place] Glucose [Mass/Vol] 284 mg/dL High 74 - 100 mg/dL [place] Glucose [Mass/Vol] 325 mg/dL High 74 - 100 mg/dL [place] POTASSIUMon 07-30-2020 Potassium [Moles/Vol] 4.4 mmol/L 3.7 - 5.3 mmol/L [place] Comment on above: SPECIMEN SLIGHTLY HE MOLYZED, RESULTS MAY BE ADVERSELY AFFECTED. Potassium [Moles/Vol] 3.8 mmol/L 3.7 - 5.3 mmol/L [place] Phosphoruson 07-30-2020 Phosphate [Mass/Vol] 1.7 mg/dL Low 2.6 - 4 .5 mg/dL [place] Phosphate [Mass/Vol] 1.7 mg/dL Low 2.6 - 4 .5 mg/dL [place] Phosphate [Mass/Vol] 1.7 mg/dL Low 2.6 - 4 .5 mg/dL [place] Phosphate [Mass/Vol] 0.6 mg/dL Critically low 2.6 - 4.5 mg/dL [place] Phosphate [Mass/Vol] 0.5 mg/dL Critically low 2.6 - 4.5 mg/dL [place] Interpretation and review of laboratory results Abnormal [place] Phosphate [Mass/Vol] 1.1 mg/dL Low 2.6 - 4 .5 mg/dL [place] SPECIMEN REJECTIONon 021 Ordered Test ADAU9S [place] Reason for Rejection Unable to perform testing: Specimen quantity not sufficient. [place] Specimen source Nom (Unsp spec) .BLOOD [place] - NOT REPORTED [place] Salicylateon 07-30-2020 Interpretation and review of laboratory results Abnormal [place] Salicylate Lvl 1 mg/dL Low 3 - 10 mg/dL [place] TOXIC TRICYCLIC SC,Bon 07-30 Toxic Tricyclic Sc,Blood Negative NEGATIVE [place] TSH with Reflexon 07-30-2020 TSH Qn 0.35 m[IU]/L [place] Urinalysis Reflex to Culture on 07-30-2020 Bilirubin Urine Negative NEGATIVE [place] Color, UA YELLOW YELLOW [place] Glucose, Ur 3+ Abnormal NEGATIVE [place] Interpretation and review of laboratory results Abnormal [place] Ketones Ql (U) LARGE Abnormal NEGATIVE [place] Leukocyte esterase Test strip Ql (U) TRACE Abnormal NEGATIVE [place] Nitrite, Urine Negative NEGATIVE [place] pH, UA 5.0 [place] Protein (U) [Mass/Vol] 2+ Abnormal NEGATIVE [place] Specific [place], UA 1.019 [place] Turbidity UA CLOUDY Abnormal CLEAR [place] Urinalysis Comments NOT REPORTED [place] Urine Hgb MODERATE Abnormal NEGATIVE [place] Urobilinogen, Urine Normal Normal [place] Urine Drug Screenon 07-30-19 21 Amphetamine Screen, Ur Negative NEGATIVE [place] Comment on above: (Positive cutoff 1000 ng/mL) Barbiturate Screen, Ur Negative NEGATIVE [place] Comment on above: (Positive cutoff 200 ng/mL) Benzodiazepine Screen, Urine Negative NEGATIVE [place] Comment on above: (Positive cutoff 200 ng/mL) Buprenorphine Urine NOT REPORTED NEGATIVE [place] Cannabinoid Scrn, Ur Negative NEGATIVE [place] Comment on above: (Positive cutoff 50 ng/mL) Cocaine Metabolite, Urine Negative NEGATIVE [place] Comment on above: (Positive cutoff 300 ng/mL) MDMA, Urine NOT REPORTED [place]GATIVE [place] Methadone Screen, Urine Negative NEGATIVE [place] Comment on above: (Positive cutoff 300 ng/mL) Methamphetamine, Urine NOT REPORTED [place]GAT[place] Opiates, Urine Negative NEGATIVE [place] Comment on above: (Positive cutoff 300 ng/mL) Oxycodone Screen, Ur Negative NEGATIVE [place] Comment on above: (Positive cutoff 100 ng/mL) Phencyclidine, Urine Negative NEGATIVE [place] Comment on above: (Positive cutoff 25 ng/mL) Propoxyphene, Urine NOT REPORTED NEGATIVE [place] Test Information Assay provides medical screening only. The absence of expected drug(s) and/or metabolite(s) may indicate diluted or adulterated urine, limitations of testing or timing of collection. [place] Comment on above: Testing for legal pu rposes should be confirmed by another method. To request confirmation of test result, please call the lab within 7 days of sample submission. Tricyclic Antidepressants, Urine NOT REPORTED NEGATIVE [facility] 21 Wong, Mhpn Incoming Radiant Results From [employer] - 07/30/2020 2:54 AM EST EXAMINATION: ONE [...] with the tip in the distal SVC. [place] EXAMINATION: ONE XRAY VIEW OF THE [...] line with tip in the distal SVC. [facility] ANTHONY Scattered bilateral infiltrates most pronounced in the right lower lobe consistent with pneumonia. Right internal jugular line with the tip in the distal SVC. [facility] ME ACETAMINOPHENon 07-29-2020 Acetaminophen [Mass/Vol] <10.0 Critically low 10.1-30 .0 [facility] Comment on above: Performed By: #### D RUGRPD #### [facility] [address] [address] Alfie Mederos ACETONE SERUMon 07-29-2020 ACETONE SMALL Abnormal NEGATIVE [facility] Comment on above: Performed By: #### A CETON #### [facility] [address] [place], [place] [address] Alfie Mederos BLOOD GAS, VENOUSon 07-29-19 21 Cami Test NOT REPORTED [facility] aPTT Coag (Bld) [Time] 37.0 s [facility] [place] Carboxyhemoglobin 0.6 % 0 - 5 % [facility] [place] Comment on above: Reference Range: Non-Smokers 0-2% Average Smoker 2-4% Heavy Smoker <10% FIO2 ROOM AIR [facility] [place] HCO3, Venous 4.2 mmol/L Low 24 - 30 mmol/L [facility] Interpretation and review of laboratory results Abnormal [facility] Methemoglobin NOT REPORTED 0 - 1.5 % [facility] [place] Mode NOT REPORTED [facility] [place] Negative Base Excess, Denis NOT REPORTED 0 - 2 mmol/L [facility] [place] NOTIFICATION NOT REPORTED [facility] [place] NOTIFICATION TIME NOT REPORTED [facility] [place] O2 Device/Flow/% NOT REPORTED [facility] [place] Oxygen saturation in Blood 69.6 % 60 - 85 % [facility] Oxyhemoglobin NOT REPORTED 95 - 98 % [facility] [place] pCO2, Denis 24.6 Low [facility] [place] pCO2, Denis, Temp Adj NOT REPORTED [facility] Peep/Cpap NOT REPORTED [facility] [place] pH, Denis 6.864 Critically low [facility] [place] pH, Denis, Temp Adj NOT REPORTED [facility] [place] pO2, Denis 39.3 [facility] [place] pO2, Denis, Temp Adj NOT REPORTED [facility] Positive Base Excess, Denis NOT REPORTED 0 - 2 mmol/L [facility] [place] PSV NOT REPORTED [facility] [place] Pt. Position NOT REPORTED [facility] [place] Sample Site NOT REPORTED [facility] [place] Set Rate NOT REPORTED [facility] [place] Text for Respiratory NOT REPORTED [facility] Total Hb NOT REPORTED 12 - 16 g/dl [facility] [place] Total Rate NOT REPORTED [facility] [place] VT NOT REPORTED [facility] [place] BLOOD GASES BTYon 07-29-2020 02 MODE ROOM AIR Normal [facility] Comment on above: Performed By: #### A BG #### [facility] [address] [address] Alfie Rosa M ALLENS TEST Positive Normal [facility] Comment on above: Performed By: #### A BG #### [facility] [address] [address] Alfie Rosa M Base excess Calc (Bld) [Moles/Vol] -26.4 mmol/L Critically low -2.0-2.0 [facility] Comment on above: Performed By: #### A BG #### [facility] [address] [id number] Alfie Rosa M BIPAP PRESSURE Normal [facility] Comment on above: Performed By: #### A BG #### [facility] [address] [place] [address] Alfie Rosa M CO2 [Moles/Vol] 3.7 mmol/L Critically low 23.0-28.0 [facility] Comment on above: Performed By: #### A BG #### [facility] [address] [id number] Alfie Rosa M CPAP [facility] Comment on above: Performed By: #### A BG #### [facility] [address] [address] Alfie Rosa M FIO2 Normal [facility] Comment on above: Performed By: #### A BG #### [facility] [address] [address] Alfie Rosa M HCO3 (Bld) [Moles/Vol] 3.3 mmol/L Critically low 22.0-26.0 [facility] Comment on above: Performed By: #### A BG #### [facility] [address] [place] [address] Alfie Rosa M LPM [facility] Comment on above: Performed By: #### A BG #### [facility] [address] [id number] Alfie Rosa M MINUTE VOLUME Normal [facility] Comment on above: Performed By: #### A BG #### [facility] [address] [address] Alfie Rosa M Oxygen (Bld) [Partial pressure] 84.7 mm[Hg] Normal 80.0-100.0 [facility] Comment on above: Performed By: #### A BG #### [facility] [address] [address] Alfie Rosa M Oxygen saturation in Blood 94.1 % Critically low 95.0-100.0 [facility] Comment on above: Performed By: #### A BG #### [facility] [address] [address] Alfie Rosa M PCO2 13.9 mmHg Critically low 35.0-45.0 [facility] Comment on above: Performed By: #### A BG #### [facility] [address] [place] [address] Alfie Rosa M PEEP Normal [facility] Comment on above: Performed By: #### A BG #### [facility] [address] [address] Alfie Rosa M pH (Bld) 6.991 [pH] Critically low 7.350-7.450 [facility] Comment on above: Performed By: #### A BG #### [facility] [address] [place] [address] Alfie Rosa M PIP Normal [facility] Comment on above: Performed By: #### A BG #### [facility] [address] [place] [address] Alfie Rosa M PS Normal [facility] Comment on above: Performed By: #### A BG #### [facility] [address] [place] [address] Alfie Rosa M PUNCTURE SITE RR Normal [facility] Comment on above: Performed By: #### A BG #### [facility] [address] [place] [address] Alfie Rosa M RATE Normal [facility] Comment on above: Performed By: #### A BG #### [facility] [address] [place] [address] Alfie Rosa M VENT MODE Normal [facility] Comment on above: Performed By: #### A BG #### [facility] [address] [place], [place] [address] Alfie Mederos [place] Normal [facility] Comment on above: Performed By: #### A BG #### [facility] [address] [place], [place] [address] Alfie Mederos Basic Metabolic Panelon 3 Anion gap [Moles/Vol] Unable to calculat e anion gap due to CO2 less than 6. 9 - 17 mmol/L [place] Bun/Cre Ratio NOT REPORTED [place] Calcium [Mass/Vol] 7.0 mg/dL Low 8.6 - 10. 4 mg/dL [place] Chloride [Moles/Vol] 109 mmol/L High 98 - 10 7 mmol/L [place] CO2 [Moles/Vol] mmol/L Critically low 20 - 31 mmol/L [place] Creatinine [Mass/Vol] 0.98 mg/dL High 0.5 - 0.9 mg/dL [place] GFR >60 >60 mL/min [place] GFR Non- >60 >60 mL/min [place] GFR/1.73 sq M predicted among non-blacks MDRD (S/P/Bld) [Vol rate/Area] NOT REPORTED [place] GFR/1.73 sq M predicted among non-blacks MDRD (S/P/Bld) [Vol rate/Area] [place] Comment on above: Average GFR for 20-2 9 years old: 116 mL/min/1.73sq m Chronic Kidney Disease: <60 mL/min/1.73sq m Kidney failure: <15 mL/min/1.73sq m eGFR calculated using average adult body mass. Additional eGFR calculator available at: http://www.[employer]/multiple_crcl_2012.htm Glucose [Mass/Vol] 360 mg/dL High 70 - 99 mg/dL [place] Interpretation and review of laboratory results Abnormal [place] Potassium [Moles/Vol] 4.1 mmol/L 3.7 - 5.3 mmol/L [place] Sodium [Moles/Vol] 136 mmol/L 135 - 144 mmol/L [place] Urea nitrogen [Mass/Vol] 30 mg/dL High 6 - 20 mg/d L [place] Anion gap [Moles/Vol] Unable to calculat e anion gap due to CO2 less than 6. 9 - 17 mmol/L [place] Bun/Cre Ratio NOT REPORTED [place] Calcium [Mass/Vol] 6.9 mg/dL Low 8.6 - 10. 4 mg/dL [place] Chloride [Moles/Vol] 110 mmol/L High 98 - 10 7 mmol/L [place] CO2 [Moles/Vol] mmol/L Critically low 20 - 31 mmol/L [place] Creatinine [Mass/Vol] 0.95 mg/dL High 0.5 - 0.9 mg/dL [place] GFR >60 >60 mL/min [place] GFR Non- >60 >60 mL/min [place] GFR/1.73 sq M predicted among non-blacks MDRD (S/P/Bld) [Vol rate/Area] [place] Comment on above: Average GFR for 20-2 9 years old: 116 mL/min/1.73sq m Chronic Kidney Disease: <60 mL/min/1.73sq m Kidney failure: <15 mL/min/1.73sq m eGFR calculated using average adult body mass. Additional eGFR calculator available at: http://www.[employer]/multiple_crcl_2012.htm GFR/1.73 sq M predicted among non-blacks MDRD (S/P/Bld) [Vol rate/Area] NOT REPORTED [place] Glucose [Mass/Vol] 368 mg/dL High 70 - 99 mg/dL [place] Interpretation and review of laboratory results Abnormal [place] Potassium [Moles/Vol] 4.0 mmol/L 3.7 - 5.3 mmol/L [place] Sodium [Moles/Vol] 137 mmol/L 135 - 144 mmol/L [place] Urea nitrogen [Mass/Vol] 30 mg/dL High 6 - 20 mg/d L [place] CBC W MANUAL DIFFon 07-29-19 21 ATYPICAL LYMPH # 0.33 103/ul Normal [facility] Comment on above: Performed By: #### Colt MERRILL, PERSMR #### [facility] [address] [address] Alfie Rosa M ATYPICAL LYMPH % 1 % Normal [facility] Comment on above: Performed By: #### Colt MERRILL, PERSMR #### [facility] [address] [address] Alfie Rosa M BAND # 3.0 103/ul Critically high 0.0-0.3 [facility] Comment on above: Performed By: #### Colt MERRILL, PERSMR #### [facility] [address] [address] Alfie Rosa M BAND % 9 % Critically high 0-5 [facility] Comment on above: Performed By: #### Colt MERRILL PERSMR #### [facility] [address] [address] Alfie Rosa M BASOM # 0.00 103/ul Normal 0.00-0.10 [facility] Comment on above: Performed By: #### Colt MERRILL PERSMR #### [facility] [address] [address] Alfie Rosa M BASOM % 0.0 % Critically low 0.2-2.0 [facility] Comment on above: Performed By: #### Colt MERRILL PERSMR #### [facility] [address] [address] Alfie Rosa M BLAST # Normal [facility] Comment on above: Performed By: #### Colt MERRILL, PERSMR #### [facility] [address] [address] Alfie Rosa M BLAST % Normal [facility] Comment on above: Performed By: #### Colt MERRILL PERSMR #### [facility] [address] [id number] Alfie Rosa M CORRECTED WBC Normal 4.0-11.0 [facility] Comment on above: Performed By: #### Colt MERRILL, PERSMR #### [facility] [address] [place], [place] [address] Alfie Rosa M Eosinophils (Bld) [#/Vol] 0.00 103/ul Normal 0.00-0.70 [facility] Comment on above: Performed By: #### Colt MERRILL, PERSMR #### [facility] [address] [place], [place] [id number] Alfie Rosa M Eosinophils/100 WBC (Bld) 0.0 % Critically low 0.9-7.0 [facility] Comment on above: Performed By: #### Colt MERRILL, PERSMR #### [facility] [address] [place], [place] [id number] Alfie Rosa M Erythrocyte distribution width (RBC) [Ratio] 13.2 % Normal 11.0-15.0 [facility] Comment on above: Performed By: #### Colt MERRILL PERSMR #### [facility] [address] [place], [place] [id number] Alfie Rosa M Hematocrit (Bld) [Volume fraction] 48.3 % Critically high 36.0-48.0 [facility] Comment on above: Performed By: #### Colt MERRILL, PERSMR #### [facility] [address] [place], [place] [id number] Alfie Rosa M Hemoglobin (Bld) [Mass/Vol] 15.2 g/dl Normal 12.0-16.0 [facility] Comment on above: Performed By: #### Colt MERRILL, PERSMR #### [facility] [address] [place], [place] [id number] Alfie Rosa M LYMPHM # 3.00 103/ul Normal 1.20-3.80 [facility] Comment on above: Performed By: #### Colt MERRILL, PERSMR #### [facility] [address] [place], [place] [id number] Alfie Rosa M LYMPHM% 9.0 % Critically low 20.5-60.0 [facility] Comment on above: Performed By: #### Colt MERRILL, PERSMR #### [facility] [address] [phone] Alfiejamie Mederos MCH (RBC) [Entitic mass] 26.8 pg Normal 26.7-34.0 [facility] Comment on above: Performed By: #### C DESIRAE, PERSMR #### [facility] [address] [place] [address] Alfiejamie Mederos MCHC (RBC) [Mass/Vol] 31.5 g/dl Normal 29.9-35.2 [facility] Comment on above: Performed By: #### C DESIRAE, PERSMR #### [facility] [address] [place] [address] Alfie Mederos MCV (RBC) [Entitic vol] 85.0 fL Normal 81.0-99.0 [facility] Comment on above: Performed By: #### Colt MERRILL, PERSMR #### [facility] [address] [place] [address] Alfie Rosa M METAMYELOCYTE # 1.0 103/ul Normal [facility] Comment on above: Performed By: #### Colt MERRILL, PERSMR #### [facility] [address] [place] [address] Alfie Rosa M METAMYELOCYTE % 3 % Normal [facility] Comment on above: Performed By: #### Colt MERRILL, PERSMR #### [facility] [address] [place] [address] Alfie Rosa M MONOM# 1.33 103/ul Critically high 0.30-0.80 [facility] Comment on above: Performed By: #### Colt MERRILL, PERSMR #### [facility] [address] [place] [address] Alfie Rosa M MONOM% 4.0 % Normal 1.7-12.0 [facility] Comment on above: Performed By: #### Colt MERRILL, PERSMR #### [facility] [address] [place] [address] Alfie Rosa M MYELOCYTE # 0.3 103/ul Normal [facility] Comment on above: Performed By: #### Colt MERRILL, PERSMR #### [facility] [address] [address] Alfie Rosa M MYELOCYTE % 1 % Normal [facility] Comment on above: Performed By: #### Colt MERRILL, PERSMR #### [facility] [address] [place], [place] [id number] Alfie Rosa M NRBC Normal [facility] Comment on above: Performed By: #### Colt MERRILL, PERSMR #### [facility] [address] [place] [address] Alfie Rosa M PATH REVIEW INDICATED Normal [facility] Comment on above: Performed By: #### Colt MERRILL PERSMR #### [facility] [address] [place] [address] Alfie Rosa M Platelet mean volume (Bld) [Entitic vol] 10.1 fL Normal 9.5-13.5 [facility] Comment on above: Performed By: #### Colt MERRILL PERSMR #### [facility] [address] [place] [address] Alfie Rosa M Platelets (Bld) [#/Vol] 384 103/ul Normal 150-450 [facility] Comment on above: Performed By: #### Colt MERRILL, PERSMR #### [facility] [address] [place] [address] Alfie Rosa M RBC (Bld) [#/Vol] 5.68 106/ul Critically high 4.20-5.40 [facility] Comment on above: Result Comment: crit ical value repeated and verified for wbc Performed By: #### Colt MERRILL, PERSMR #### [facility] [address] [place] [address] Alfie Rosa M SEG # 24.31 103/ul Critically high 1.40-6.50 [facility] Comment on above: Performed By: #### Colt MERRILL, PERSMR #### [facility] [address] [place], [place] [id number] Alfie Rosa M Segmented neutrophils/100 WBC (Bld) 73.0 % Normal 43.0-75.0 [facility] Comment on above: Performed By: #### C SAAD MERRILL #### [facility] [address] [place], [place] [address] Alfie Mederos WBC (Bld) [#/Vol] 33.3 103/ul Critically high 4.0-11.0 [facility] Comment on above: Result Comment: crit ical toya Performed By: #### C SAAD MERRILL #### [facility] [address] [place], [place] [address] Alfie Mederos CBC auto differentialon 07-02 Basophils (Bld) [#/Vol] 0.00 10*3/uL [place] Basophils/100 WBC (Bld) 0 % 0 - 2 % M [place], [place] Differential Type NOT REPORTED [place] Eosinophils (Bld) [#/Vol] 0.00 10*3/uL [place] Eosinophils/100 WBC (Bld) 0 % Low 1 - 4 % [place] Erythrocyte distribution width (RBC) [Ratio] 13.0 % 11.8 - 14.4 % [place] Hematocrit (Bld) [Volume fraction] 45.0 % 36.3 - 47.1 % [place] Hemoglobin (Bld) [Mass/Vol] 14.0 g/dL 11.9 - 15.1 g/dL [place] Immature granulocytes (Bld) [#/Vol] 0.86 10*3/uL [place] Immature granulocytes (Bld) [#/Vol] 3 % High 0 [place] Interpretation and review of laboratory results Abnormal [place] Lymphocytes (Bld) [#/Vol] 1.43 10*3/uL [place] Lymphocytes/100 WBC (Bld) 5 % Low 24 - 44 % [place] MCH (RBC) [Entitic mass] 26.3 pg 25. 2 - 33.5 pg [place] MCHC (RBC) [Mass/Vol] 31.1 g/dL 28.4 - 34.8 g/dL [place] MCV (RBC) [Entitic vol] 84.6 fL 82.6 - 102.9 fL [place] Monocytes (Bld) [#/Vol] 1.14 10*3/uL [place] Monocytes/100 WBC (Bld) 4 % 1 - 7 % [place] Morphology Calvin (Bld) [Interp] Normal [place] Platelet mean volume (Bld) [Entitic vol] 9.9 fL 8.1 - 13.5 fL [place] Platelets (Bld) [#/Vol] 346 10*3/uL [place] Platelets (Bld) [#/Vol] NOT REPORTED [place] RBC (Bld) [#/Vol] 5.32 10*6/uL High 3.95 - 5.1 1 m/uL [place] RBC morphology finding Nom (Bld) NOT REPORTED [place] Segmented neutrophils/100 WBC (Bld) 88 % High 36 - 66 % [place] Segs Absolute 25.07 High [place] WBC (Bld) [#/Vol] 0.0 10*3/uL 0.0 per 10 0 WBC [place] WBC (Bld) [#/Vol] 28.5 10*3/uL [place] WBC Morphology NOT REPORTED [place] CT HEAD WO CONon 07-29-2020 CT [...] KALIN BRUNER Date: 2020-07-29 17:22 Normal [facility] CULTURE URINEon 07-29-2020 CULTURE URINE Culture Observations: NO GROWTH Normal [facility] Comment on above: Performed By: #### D RUGRPD #### [facility] [address] [place] [address] Alfiejamie Mederos DRUG SCREEN RAPID (URINE)on 07-29-2020 AMP Negative Normal NEGATIVE [facility] Comment on above: Performed By: #### D RUGRPD #### [facility] [address] [place] [address] Alfie Rosa M BAR Negative Normal NEGATIVE [facility] Comment on above: Performed By: #### D RUGRPD #### [facility] [address] [place] [address] Alfie Rosa M BUP Negative Normal NEGATIVE [facility] Comment on above: Performed By: #### D RUGRPD #### [facility] [address] [place] [address] Alfie Rosa M BZO Negative Normal NEGATIVE [facility] Comment on above: Performed By: #### D RUGRPD #### [facility] [address] [place] [address] Alfie Rosa M KRISTINA Negative Normal NEGATIVE [facility] Comment on above: Performed By: #### D RUGRPD #### [facility] [address] [place] [address] Alfie Rosa M CUT-OFFS SEE BELOW Normal [facility] Comment on above: Result Comment: AMP (Amphetamine): [...] ng/mL Performed By: #### D RUGRPD #### [facility] [address] [place] [address] Alfiejamie Mederos DRUG CUT HEADER DRUG CLASS TEST SYSTEM CUT-OFF CONCENTRATIONS ARE FOLLOWS: Normal [facility] Comment on above: Performed By: #### D RUGRPD #### [facility] [address] [place] [address] Alfie Rosa M mAMP Negative Normal NEGATIVE [facility] Comment on above: Performed By: #### D RUGRPD #### [facility] [address] [place] [address] Alfie Rosa M MTD Negative Normal NEGATIVE [facility] Comment on above: Performed By: #### D RUGRPD #### [facility] [address] [place] [address] Alfie Rosa M OPI Negative Normal NEGATIVE [facility] Comment on above: Performed By: #### D RUGRPD #### [facility] [address] [place] [address] Alfie Rosa M OXY Negative Normal NEGATIVE [facility] Comment on above: Performed By: #### D RUGRPD #### [facility] [address] [place] [address] Alfie Rosa M PCP Negative Normal NEGATIVE [facility] Comment on above: Performed By: #### D RUGRPD #### [facility] [address] [place] [address] Alfie Rosa M PPX Negative Normal NEGATIVE [facility] Comment on above: Performed By: #### D RUGRPD #### [facility] [address] [place] [address] Alfie Rosa M TCA Negative Normal NEGATIVE [facility] Comment on above: Performed By: #### D RUGRPD #### [facility] [address] [place] [address] Alfie Rosa M THC Negative Normal NEGATIVE [facility] Comment on above: Performed By: #### D RUGRPD #### [facility] [address] [place] [address] Alfie Rosa M ER URINE PROFILEon 1 Bilirubin [Mass/Vol] Negative Normal NEGATIVE [facility] Comment on above: Performed By: #### D RUGRPD #### [facility] [address] [place], [place] [address] Alfie Rosa M BLOOD MODERATE Abnormal NEGATIVE [facility] Comment on above: Performed By: #### D RUGRPD #### [facility] [address] [place] [address] Alfie Rosa M Clarity (U) CLEAR Normal CLEAR [facility] Comment on above: Performed By: #### D RUGRPD #### [facility] [address] [place], [place] [id number] Alfie Rosa M Color (U) LT. YELLOW Normal YELLOW [facility] Comment on above: Performed By: #### D RUGRPD #### [facility] [address] [place] [address] Alfie Rosa M ERUAHD A micrscopic examination will be performed if indicated. Normal [facility] Comment on above: Performed By: #### D RUGRPD #### [facility] [address] [place] [address] Alfie Rosa M Glucose [Mass/Vol] >1000 Abnormal NEGATIVE [facility] Comment on above: Performed By: #### Jam RUGRPD #### [facility] [address] [place] [address] Alfie Rosa M Ketones Ql (U) >=80 Abnormal NEGATIVE [facility] Comment on above: Performed By: #### Jam HURTADORPD #### [facility] [address] [place] [address] Alfie Rosa M Nitrite Ql (U) Negative Normal NEGATIVE [facility] Comment on above: Performed By: #### Jam HURTADORPD #### [facility] [address] [place] [address] Alfie Rosa M pH (Bld) 5.5 Normal 5-9 [facility] Comment on above: Performed By: #### Jam HURTADORPD #### [facility] [address] [place] [address] Alfie Rosa M Protein (U) [Mass/Vol] 30 mg/dL Abnormal NEGAT MALISSA/ TRACE [facility] Comment on above: Performed By: #### Jam RUGRPD #### [facility] [address] [place] [address] Alfie Rosa M SPEC GRAVITY 1.025 Normal 1.005-<=1.02 5 [facility] Comment on above: Performed By: #### D RUGRPD #### [facility] [address] [place] [address] Alfie Mederos UR MICRO IND INDICATED Normal [facility] Comment on above: Performed By: #### D RUGRPD #### [facility] [address] [id number] Alfie Mederos Urobilinogen Qn (U) 0.2 EU/dl Normal 0.2 - 1.0 [facility] Comment on above: Performed By: #### D RUGRPD #### [facility] [address] [place], [place] [id number] Alfie Mederos WBC (Bld) [#/Vol] Negative Normal NEGATIVE [facility] Comment on above: Performed By: #### D RUGRPD #### [facility] [address] [place], [place] [phone] Alfie Mederos ETHANOL (BLD ALC)on 07-29-19 21 Ethanol [Mass/Vol] NOTE: 80 mg/dl is the legal limit for a blood alcohol level Normal [facility] Comment on above: Performed By: #### D RUGGUILLERMOD #### [facility] [address] [place], [place] [phone] Alfie Mederos Ethanol [Mass/Vol] mg/dL Normal [facility] Comment on above: Performed By: #### D RUGRPD #### [facility] [address] [place], [place] [phone] Alfie Mederos LACTIC ACID, WHOLE BLOODon 0 07-29-2020 Lactic Acid, Whole Blood 1.1 mmol/L 0.7 - 2.1 mmol/L [facility], [place] Magnesiumon 07-29-2020 Magnesium [Mass/Vol] 2.0 mg/dL 1.6 - 2 .6 mg/dL [facility], [place] Magnesium [Mass/Vol] 1.8 mg/dL 1.6 - 2 .6 mg/dL [facility], [place] NAon 07-29-2020 Sodium [Moles/Vol] 138 mmol/L Normal 137-145 [facility] Comment on above: Performed By: #### K , NA #### [facility] [address] [place], [place] [address] Alfie Rosa M PERIPHERAL SMEARon Pathologist Cyto stain Nom (Cvx/Vag) [ID] DR. LUÍS HAY [facility] Comment on above: Result Comment: nini ed neutrophilia with left shift, rule out infectious process mild erythrocytosis CPT: 59811 luís hay 08-01-20 Performed By: #### C DESIRAE, PERSMR #### [facility] [address] [place], [place] [address] Alfie Rosa M PH VENOUS BLOODon 07-29-2020 PCO2 VENOUS 21.5 mmHg Critically low 40.0-52.0 [facility] Comment on above: Performed By: #### A BG #### [facility] [address] [place] [address] Alfie Rosa M pH VENOUS <6.93 Critically low 7.33-7.43 [facility] Comment on above: Performed By: #### A BG #### [facility] [address] [place], [place] [address] Alfie Rosa M POC Glucose Fingerstickon Glucose [Mass/Vol] 334 mg/dL High 65 - 105 mg/dL [place] Interpretation and review of laboratory results Abnormal [place] Glucose [Mass/Vol] 340 mg/dL High 65 - 105 mg/dL [place] Interpretation and review of laboratory results Abnormal [place] Glucose [Mass/Vol] 363 mg/dL High 65 - 105 mg/dL [place] Interpretation and review of laboratory results Abnormal [place] POINT OF CARE GLUCOSEon 07-02 Glucose [Mass/Vol] 337 mg/dL Critically high 74-106 [facility] Comment on above: Performed By: #### P OCGLUC #### [facility] [address] [place], [place] [address] Alfie Rosa M Glucose [Mass/Vol] 367 mg/dL Critically high 74-106 [facility] Comment on above: Performed By: #### D RUGRPD #### [facility] [address] [place], [place] [address] Alfie Rosa M Glucose [Mass/Vol] 375 mg/dL Critically high 74-106 [facility] Comment on above: Performed By: #### D RUGRPD #### [facility] [address] [place], [place] [address] Alfie Rosa M Glucose [Mass/Vol] 403 mg/dL Critically high 74-106 [facility] Comment on above: Performed By: #### A BG #### [facility] [address] [place] [address] Alfie Rosa M POTASSIUMon 07-29-2020 Potassium [Moles/Vol] 4.0 mmol/L Normal 3.4-5.0 [facility] Comment on above: Performed By: #### K , NA #### [facility] [address] [place] [address] Alfie Rosa M URon 07-29-2020 , QUAL Negative Normal NEGATIVE [facility] Comment on above: Performed By: #### P REGU #### [facility] [address] [place] [address] Alfie Rosa M PROF 14(COMP METB)on 021 Albumin [Mass/Vol] 3.2 g/dL Critically low 3.5-5.0 [facility] Comment on above: Performed By: #### D RUGRPD #### [facility] [address] [place] [address] Alfie Rosa M Albumin/Globulin [Mass ratio] 1.0 {ratio} Normal [facility] Comment on above: Performed By: #### D RUGRPD #### [facility] [address] [place] [address] Alfie Rosa M ALP [Catalytic activity/Vol] 135 U/L Critically high 38-126 [facility] Comment on above: Performed By: #### D RUGRPD #### [facility] [address] [place] [address] Alfie Rosa M ALT [Catalytic activity/Vol] 27 U/L Normal 9-52 [facility] Comment on above: Performed By: #### D RUGRPD #### [facility] [address] [place], [place] [address] Alfie Rosa M Anion gap [Moles/Vol] 31.9 mmol/L Normal [facility] Comment on above: Performed By: #### D RUGRPD #### [facility] [address] [place], [place] [address] Alfie Rosa M AST [Catalytic activity/Vol] 52 U/L Critically high 14-36 [facility] Comment on above: Performed By: #### D RUGRPD #### [facility] [address] [place], [place] [address] Alfie Rosa M Bilirubin Ql (U) 0.5 mg/dL Normal 0.2-1.3 [facility] Comment on above: Performed By: #### D RUGRPD #### [facility] [address] [phone] Alfie Rosa M Calcium [Mass/Vol] 6.8 mg/dL Critically low 8.4-10.2 [place] Comment on above: Performed By: #### D RUGRPD #### [facility] [address] [place], [place] [address] Alfie Rosa M Chloride [Moles/Vol] 103 mmol/L Normal 98-107 [facility] Comment on above: Performed By: #### D RUGRPD #### [facility] [address] [place], [place] [address] Alfie Rosa M CO2 [Moles/Vol] mmol/L Critically low 22.0-30.0 [facility] Comment on above: Result Comment: TEST REPEATED CRITICAL VALUE VERIFIED Performed By: #### D RUGRPD #### [facility] [address] [place], [place] [address] Alfie Rosa M Creatinine [Mass/Vol] 1.08 mg/dL Critically high 0.52-1.04 [facility] Comment on above: Performed By: #### D RUGRPD #### [facility] [address] [place], [place] [address] Alfie Rosa M EGFR-AF MAURITANIAN >60 Normal >=60 [facility] Comment on above: Performed By: #### D RUGRPD #### [facility] [address] [place], [place] [address] Alfie Rosa M EGFR-NON AF MAURITANIAN >60 Normal >=60 [facility] Comment on above: Performed By: #### D RUGRPD #### [facility] [address] [place], [place] [address] Alfie Rosa M Globulin (S) [Mass/Vol] 3.1 g/dL Normal [facility] Comment on above: Performed By: #### D RUGRPD #### [facility] [address] [place], [place] [address] Alfie Rosa M Glucose [Mass/Vol] 448 mg/dL Critically high 74-106 [facility] Comment on above: Performed By: #### D RUGRPD #### [facility] [address] [place], [place] [address] Alfie Rosa M Potassium [Moles/Vol] 3.9 mmol/L Normal 3.4-5.0 [facility] Comment on above: Performed By: #### D RUGRPD #### [facility] [address] [place], [place] [address] Alfie Rosa M Protein [Mass/Vol] 6.3 g/dL Normal 6.1-8.2 [facility] Comment on above: Performed By: #### D RUGGUILLERMOD #### [facility] [address] [place], [place] [address] Alfie Rosa M Sodium [Moles/Vol] 136 mmol/L Critically low 137-145 [place] Comment on above: Performed By: #### D GENESISRPD #### [facility] [address] [place], [place] [address] Alfie Rosa M Urea nitrogen [Mass/Vol] 28.0 mg/dL Critically high 7.0-17 .0 [facility] Comment on above: Performed By: #### D BELTRAND #### [facility] [address] [place], [place] [address] Alfie Rosa M Urea nitrogen/Creatinine [Mass ratio] 25.9 mg/mg Normal [facility] Comment on above: Performed By: #### D KAILEY #### [facility] [address] [place] [address] Alfie Mederos Phosphoruson 07-29-2020 Phosphate [Mass/Vol] 2.9 mg/dL 2.6 - 4 .5 mg/dL [facility], [place] Phosphate [Mass/Vol] 2.6 mg/dL 2.6 - 4 .5 mg/dL [facility], [place] Rapid Covid-19 PCR (CVDRPD)o n 07-29-2020 [facility] Info SEE BELOW Normal [facility] Comment on above: Result Comment: This test is not yet approved or cleared by the [place] Food and Drug Administration (FDA) . This test was developed by [employer], [facility]. The performance characteristics of this test were validated by [facility]. The results are not intended to be used as the sole means for clinical diagnosis or patient management decisions. The [facility] is authorized under Clinical Laboratory Improvement Amendments (CLIA) to perform high-complexity testing. When diagnostic testing is negative, the possibility of a false negative should be considered in the context of a patients recent exposures and the presence of clinical signs and symptoms consistent with SARS-CoV-2. Performed By: #### C VDRPD #### [facility] [address] [place] [address] Alfie Mederos SARS-CoV-2 NOT DETECTED Normal NOT DETECTED [facility] Comment on above: Result Comment: This test is not yet approved or cleared by the [place] Food and Drug Administration (FDA). This test was developed by [employer], [facility]. The performance characteristics of this test were validated by [facility]. The results are not intended to be used as the sole means for clinical diagnosis or patient management decisions. The [facility] is authorized under Clinical Laboratory Improvement Amendments (CLIA) to perform high-complexity testing. Performed By: #### C VDRPD #### [facility] [address] [place] [address] Alfie Mederos SALICYLATEon 07-29-2020 SALICYLATE 10.6 mg/dL Normal <=20.0 [facility] Comment on above: Performed By: #### A BG #### [facility] [address] [place], [place] [phone] Alfie Rosa M URINE MICROSCOPIC ONLYon AMORPHOUS CRYSTALS FEW Normal [facility] Comment on above: Performed By: #### D RUGRPD #### [facility] [address] [place], [place] [phone] Alfie Rosa M Bacteria LM.HPF (Urine sed) [#/Area] SMALL Abnormal NONE SEEN [facility] Comment on above: Performed By: #### D RUGRPD #### [facility] [address] [place], [place] [id number] Alfie Rosa M CAST NONE SEEN Normal NONE SEEN The [facility] Comment on above: Performed By: #### D RUGRPD #### [facility] [address] [place], [place] [id number] Alfie Rosa M Crystals LM Nom (Urine sed) SEEN Abnormal NONE SEEN [facility] Comment on above: Performed By: #### D RUGRPD #### [facility] [address] [place], [place] [phone] Alfie Rosa M CULTURE INDICATED Normal [facility] Comment on above: Performed By: #### D RUGRPD #### [facility] [address] [place], [place] [phone] Alfie Rosa M Epithelial cells LM.HPF (Urine sed) [#/Area] FEW Abnormal NONE SEEN /RARE [facility] Comment on above: Performed By: #### D RUGRPD #### [facility] [address] [place], [place] [phone] Alfie Rosa M MUCOUS TRACE Abnormal NONE SEEN [facility] Comment on above: Performed By: #### D RUGRPD #### [facility] [address] [place], [place] [phone] Alfie Rosa M RBC (U) [#/Vol] 2-5 Abnormal 0-2 [facility] Comment on above: Performed By: #### D RUGRPD #### [facility] [address] [place], [place] [phone] Alfie Rosa M WBC (Bld) [#/Vol] 2-5 Abnormal NONE SEEN The [facility] Comment on above: Performed By: #### D RUGRPD #### [facility] [address] [place], [place] [address] Alfie Mederos XR CHEST 1 Von 07-29-2020 XR CHEST 1 V CHEST X-RAY, 1 VIEW HISTORY: Acute respiratory distress.. COMPARISON: None. FINDINGS: The heart, quin, and mediastinum are unremarkable. There is right lower lobe airspace disease. There are no pleural effusions. There is no pneumothorax. IMPRESSION: Right lower lobe atelectasis or infiltrate. Electronically authenticated by: TAMIKO ÁLVAREZ Date: 2020-07-29 11:44 Normal [facility] Comprehensive Metabolic Pane galileo 06-10-2020 Albumin [Mass/Vol] 2.3 g/dL Low 3.2 - 5.2 g/dL [facility] ALP [Catalytic activity/Vol] 70 U/L 40 - 140 U/L [facility] ALT [Catalytic activity/Vol] 21 U/L 14 - 65 U/L [facility] Anion gap [Moles/Vol] 9 mmol/L Low 10 - 2 0 mmol/L [facility] AST [Catalytic activity/Vol] 14 U/L 0 - 45 U/L [facility] Bilirubin [Mass/Vol] 0.3 mg/dL 0 - 1.3 mg/dL [facility] Calcium [Mass/Vol] 8.4 mg/dL 8.4 - 10. 2 mg/dL [facility] Chloride [Moles/Vol] 111 mmol/L High 98 - 10 8 mmol/L [facility] Creatinine [Mass/Vol] 0.56 mg/dL 0.40 - 1.10 [facility] GFR/1.73 sq M predicted among non-blacks MDRD (S/P/Bld) [Vol rate/Area] The eGFR should be used for monitoring renal function only and not for medication dosing. [facility] GFR/1.73 sq M.predicted CKD-EPI (S/P/Bld) [Vol rate/Area] 128 >=60 mL/min/1.73 m2 [facility] Glucose [Mass/Vol] 267 mg/dL High 65 - 99 mg/dL [facility] HCO3 [Moles/Vol] 24 mmol/L 21 - 32 mmol/L [facility] Interpretation and review of laboratory results Abnormal [facility] Potassium [Moles/Vol] 3.9 mmol/L 3.5 - 5.1 mmol/L [facility] Protein [Mass/Vol] 5.5 g/dL Low 6 - 8 g/dL [facility] alth Sodium [Moles/Vol] 140 mmol/L 135 - 145 mmol/L [facility] Urea nitrogen [Mass/Vol] 9 mg/dL 8 - 25 mg/d L [facility] Urea nitrogen/Creatinine [Mass ratio] 16.1 mg/mg [facility] POC Glucoseon 06-10-2020 Glucose [Mass/Vol] 236 mg/dL High 65 - 99 mg/dL [facility] Interpretation and review of laboratory results Abnormal [facility] Glucose [Mass/Vol] 457 mg/dL Critically high 65 - 9 9 mg/dL [facility] Interpretation and review of laboratory results Abnormal [facility] Critical result acted upon time of test. Test performed at bedside. [facility] Glucose [Mass/Vol] 313 mg/dL High 65 - 99 mg/dL [facility] Interpretation and review of laboratory results Abnormal [facility] Phosphoruson 06-10-2020 Interpretation and review of laboratory results Normal [facility] Phosphate [Mass/Vol] 3.7 mg/dL 2.7 - 4 .5 mg/dL [facility] CBC WITH AUTO DIFFERENTIALon 06-09-2020 Basophils (Bld) [#/Vol] 0.01 10*3/uL [facility] Basophils/100 WBC (Bld) 0.2 % [facility] Eosinophils (Bld) [#/Vol] 0.03 10*3/uL [facility] Eosinophils/100 WBC (Bld) 0.5 % [facility] Erythrocyte distribution width (RBC) [Entitic vol] 13.9 % 11.6 - 14.8 % [facility] Hematocrit (Bld) [Volume fraction] 34.1 % Low 36 - 46 % [facility] Hemoglobin (Bld) [Mass/Vol] 11.8 g/dL Low 12 - 16 g/dL [facility] Immature granulocytes (Bld) [#/Vol] 0.02 10*3/uL [facility] Immature granulocytes/100 WBC (Bld) 0.30 % [facility] Comment on above: The IG parameter is the percentage of metamyelocytes, myelocytes and promyelocytes. An immature granulocyte count (IG) of 1% or more suggests the possibility of infection, an IG count of 3% is very likely related to an infection. Interpretation and review of laboratory results Abnormal [facility] Lymphocytes (Bld) [#/Vol] 1.33 10*3/uL [facility] Lymphocytes/100 WBC (Bld) 22.1 % [facility] MCH (RBC) [Entitic mass] 27.0 pg 26 - 34 pg [facility] MCHC (RBC) [Mass/Vol] 34.6 g/dL 31 - 37 g/dL [facility] MCV (RBC) [Entitic vol] 78.0 fL Low 80 - 100 fL [facility] Monocytes (Bld) [#/Vol] 0.57 10*3/uL [facility] Monocytes/100 WBC (Bld) 9.5 % [facility] Neutrophils (Bld) [#/Vol] 4.05 10*3/uL [facility] Neutrophils/100 WBC (Bld) 67.4 % [facility] Nucleated RBC (Bld) [#/Vol] 0.00 10*3/uL [facility] Nucleated RBC/100 WBC (Bld) [Ratio] 0.0 % [facility] Platelet mean volume (Bld) [Entitic vol] 9.8 fL 9.4 - 12.4 fL [facility] Platelets (Bld) [#/Vol] 255 10*3/uL [facility] RBC (Bld) [#/Vol] 4.37 10*6/uL [facility] WBC (Bld) [#/Vol] 6.01 10*3/uL [facility] Comprehensive Metabolic Pane galileo 06-09-2020 Albumin [Mass/Vol] 2.6 g/dL Low 3.2 - 5.2 g/dL [facility] ALP [Catalytic activity/Vol] 68 U/L 40 - 140 U/L [facility] ALT [Catalytic activity/Vol] 19 U/L 14 - 65 U/L [facility] Anion gap [Moles/Vol] 11 mmol/L 10 - 2 0 mmol/L [facility] AST [Catalytic activity/Vol] 11 U/L 0 - 45 U/L [facility] Bilirubin [Mass/Vol] 0.4 mg/dL 0 - 1.3 mg/dL [facility] Calcium [Mass/Vol] 8.5 mg/dL 8.4 - 10. 2 mg/dL [facility] Chloride [Moles/Vol] 110 mmol/L High 98 - 10 8 mmol/L [facility] Creatinine [Mass/Vol] 0.59 mg/dL 0.40 - 1.10 [facility] GFR/1.73 sq M predicted among non-blacks MDRD (S/P/Bld) [Vol rate/Area] The eGFR should be used for monitoring renal function only and not for medication dosing. [facility] GFR/1.73 sq M.predicted CKD-EPI (S/P/Bld) [Vol rate/Area] 126 >=60 mL/min/1.73 m2 [facility] Glucose [Mass/Vol] 239 mg/dL High 65 - 99 mg/dL [facility] HCO3 [Moles/Vol] 19 mmol/L Low 21 - 32 mmol/L [facility] Potassium [Moles/Vol] 3.2 mmol/L Low 3.5 - 5.1 mmol/L [facility] Protein [Mass/Vol] 5.8 g/dL Low 6 - 8 g/dL [facility] alth Sodium [Moles/Vol] 137 mmol/L 135 - 145 mmol/L [facility] Urea nitrogen [Mass/Vol] 6 mg/dL Low 8 - 25 mg/d L [facility] Urea nitrogen/Creatinine [Mass ratio] 10.2 mg/mg [facility] Magnesium Levelon 06-09-2020 Interpretation and review of laboratory results Normal [facility] Magnesium [Mass/Vol] 1.8 mg/dL 1.6 - 2 .4 mg/dL [facility] Otheron 06-09-2020 Interpretation and review of laboratory results Abnormal [facility] Interpretation and review of laboratory results Abnormal [facility] POC Glucoseon 06-09-2020 Glucose [Mass/Vol] 303 mg/dL High 65 - 99 mg/dL [facility] Interpretation and review of laboratory results Abnormal [facility] Glucose [Mass/Vol] 161 mg/dL High 65 - 99 mg/dL [facility] Glucose [Mass/Vol] 335 mg/dL High 65 - 99 mg/dL [facility] Glucose [Mass/Vol] 264 mg/dL High 65 - 99 mg/dL [facility] Interpretation and review of laboratory results Abnormal [facility] Glucose [Mass/Vol] 247 mg/dL High 65 - 99 mg/dL [facility] Interpretation and review of laboratory results Abnormal [facility] Phosphoruson 06-09-2020 Phosphate [Mass/Vol] 2.1 mg/dL Low 2.7 - 4 .5 mg/dL [facility] Potassium Levelon 06-09-2020 Interpretation and review of laboratory results Normal [facility] Potassium [Moles/Vol] 3.6 mmol/L 3.5 - 5.1 mmol/L [facility] URINALYSISon 06-09-2020 Bacteria Auto Ql (U) None Seen None Se en /hpf [facility] Bilirubin Ql (U) Negative Negative [facility] th Clarity Refractometry automated (U) Clear Clear [facility] Color (U) Colorless Colorless, Yellow [facility] Glucose Auto test strip (U) [Mass/Vol] >=500 Abnormal Negative mg/dL [facility] Hemoglobin Auto test strip Ql (U) Negative Negative [facility] Interpretation and review of laboratory results Abnormal [facility] Ketones (U) [Mass/Vol] Negative Negat malissa mg/dL [facility] Leukocyte esterase Auto test strip Ql (U) Negative Negative [facility] Mucus Auto (Urine sed) [#/Area] Rare None Seen, Rare /lpf [facility] Nitrite Auto test strip Ql (U) Negative Negative [facility] pH (U) 6.0 [pH] [facility] Protein (U) [Mass/Vol] Negative Negat malissa mg/dL [facility] RBC Auto (Urine sed) [#/Area] 1 [facility] Specific gravity (U) [Rel density] 1.009 [facility] Urobilinogen (U) [Mass/Vol] <2.0 <2.0 mg/dL [facility] WBC Auto (Urine sed) [#/Area] 1 [facility] Microscopic examination is performed on all urinalysis samples and only positive findings are reported. The test for blood on the chemical analytic portion of urinalysis may also be positive due to hemoglobinuria and myoglobinuria and if red blood cells are present they are quantified by microscopic examination. [facility] Basic Metabolic Panelon 12-1 0 Anion gap [Moles/Vol] 18 mmol/L 10 - 2 0 mmol/L [facility] Calcium [Mass/Vol] 8.7 mg/dL 8.4 - 10. 2 mg/dL [facility] Chloride [Moles/Vol] 107 mmol/L 98 - 10 8 mmol/L [facility] Creatinine [Mass/Vol] 0.82 mg/dL 0.40 - 1.10 [facility] GFR/1.73 sq M predicted among non-blacks MDRD (S/P/Bld) [Vol rate/Area] The eGFR should be used for monitoring renal function only and not for medication dosing. [facility] GFR/1.73 sq M.predicted CKD-EPI (S/P/Bld) [Vol rate/Area] 98 >=60 mL/min/1.73 m2 [facility] Glucose [Mass/Vol] 321 mg/dL High 65 - 99 mg/dL [facility] HCO3 [Moles/Vol] 11 mmol/L Low 21 - 32 mmol/L [facility] Potassium [Moles/Vol] 4.0 mmol/L 3.5 - 5.1 mmol/L [facility] Sodium [Moles/Vol] 132 mmol/L Low 135 - 145 mmol/L [facility] Urea nitrogen [Mass/Vol] 7 mg/dL Low 8 - 25 mg/d L [facility] Urea nitrogen/Creatinine [Mass ratio] 8.5 mg/mg Low [facility] Anion gap [Moles/Vol] 14 mmol/L 10 - 2 0 mmol/L [facility] Calcium [Mass/Vol] 8.8 mg/dL 8.4 - 10. 2 mg/dL [facility] Chloride [Moles/Vol] 113 mmol/L High 98 - 10 8 mmol/L [facility] Creatinine [Mass/Vol] 0.63 mg/dL 0.40 - 1.10 [facility] GFR/1.73 sq M predicted among non-blacks MDRD (S/P/Bld) [Vol rate/Area] The eGFR should be used for monitoring renal function only and not for medication dosing. [facility] GFR/1.73 sq M.predicted CKD-EPI (S/P/Bld) [Vol rate/Area] 123 >=60 mL/min/1.73 m2 [facility] Glucose [Mass/Vol] 105 mg/dL High 65 - 99 mg/dL [facility] HCO3 [Moles/Vol] 11 mmol/L Low 21 - 32 mmol/L [facility] Interpretation and review of laboratory results Abnormal [facility] Potassium [Moles/Vol] 4.4 mmol/L 3.5 - 5.1 mmol/L [facility] Sodium [Moles/Vol] 134 mmol/L Low 135 - 145 mmol/L [facility] Urea nitrogen [Mass/Vol] 7 mg/dL Low 8 - 25 mg/d L [facility] Urea nitrogen/Creatinine [Mass ratio] 11.1 mg/mg [facility] Anion gap [Moles/Vol] 11 mmol/L 10 - 2 0 mmol/L [facility] Calcium [Mass/Vol] 8.9 mg/dL 8.4 - 10. 2 mg/dL [facility] Chloride [Moles/Vol] 113 mmol/L High 98 - 10 8 mmol/L [facility] Creatinine [Mass/Vol] 0.55 mg/dL 0.40 - 1.10 [facility] GFR/1.73 sq M predicted among non-blacks MDRD (S/P/Bld) [Vol rate/Area] The eGFR should be used for monitoring renal function only and not for medication dosing. [facility] GFR/1.73 sq M.predicted CKD-EPI (S/P/Bld) [Vol rate/Area] 129 >=60 mL/min/1.73 m2 [facility] Glucose [Mass/Vol] 134 mg/dL High 65 - 99 mg/dL [facility] HCO3 [Moles/Vol] 15 mmol/L Low 21 - 32 mmol/L [facility] Interpretation and review of laboratory results Abnormal [facility] Potassium [Moles/Vol] 3.0 mmol/L Low 3.5 - 5.1 mmol/L [facility] Sodium [Moles/Vol] 136 mmol/L 135 - 145 mmol/L [facility] Urea nitrogen [Mass/Vol] 7 mg/dL Low 8 - 25 mg/d L [facility] Urea nitrogen/Creatinine [Mass ratio] 12.7 mg/mg [facility] Beta-Hydroxybutyrateon 06-08 Beta hydroxybutyrate [Moles/Vol] 0.4 mmol/L High 0 - 0.3 mmol/L [facility] Beta hydroxybutyrate [Moles/Vol] 0.3 mmol/L 0 - 0.3 mmol/L [facility] CBC WITH AUTO DIFFERENTIALon 06-08-2020 Basophils (Bld) [#/Vol] 0.02 10*3/uL [facility] Basophils/100 WBC (Bld) 0.2 % [facility] Eosinophils (Bld) [#/Vol] 0.02 10*3/uL [facility] Eosinophils/100 WBC (Bld) 0.2 % [facility] Erythrocyte distribution width (RBC) [Entitic vol] 13.4 % 11.6 - 14.8 % [facility] Hematocrit (Bld) [Volume fraction] 37.5 % 36 - 46 % [facility] Hemoglobin (Bld) [Mass/Vol] 13.0 g/dL 12 - 16 g/dL [facility] Immature granulocytes (Bld) [#/Vol] 0.06 10*3/uL [facility] Immature granulocytes/100 WBC (Bld) 0.60 % [facility] Comment on above: The IG parameter is the percentage of metamyelocytes, myelocytes and promyelocytes. An immature granulocyte count (IG) of 1% or more suggests the possibility of infection, an IG count of 3% is very likely related to an infection. Interpretation and review of laboratory results Abnormal [facility] Lymphocytes (Bld) [#/Vol] 0.97 10*3/uL [facility] Lymphocytes/100 WBC (Bld) 10.3 % [facility] MCH (RBC) [Entitic mass] 27.1 pg 26 - 34 pg [facility] MCHC (RBC) [Mass/Vol] 34.7 g/dL 31 - 37 g/dL [facility] MCV (RBC) [Entitic vol] 78.1 fL Low 80 - 100 fL [facility] Monocytes (Bld) [#/Vol] 0.61 10*3/uL [facility] Monocytes/100 WBC (Bld) 6.5 % [facility] Neutrophils (Bld) [#/Vol] 7.76 10*3/uL High [facility] Neutrophils/100 WBC (Bld) 82.2 % [facility] Nucleated RBC (Bld) [#/Vol] 0.01 10*3/uL High [facility] Nucleated RBC/100 WBC (Bld) [Ratio] 0.1 % [facility] Platelet mean volume (Bld) [Entitic vol] 9.2 fL Low 9.4 - 12.4 fL [facility] Platelets (Bld) [#/Vol] 293 10*3/uL [facility] RBC (Bld) [#/Vol] 4.80 10*6/uL [facility] WBC (Bld) [#/Vol] 9.44 10*3/uL [facility] Albumin [Mass/Vol] 2.6 g/dL Low 3.2 - 5.2 g/dL [facility] ALP [Catalytic activity/Vol] 68 U/L 40 - 140 U/L [facility] ALT [Catalytic activity/Vol] 20 U/L 14 - 65 U/L [facility] Anion gap [Moles/Vol] 15 mmol/L 10 - 2 0 mmol/L [facility] AST [Catalytic activity/Vol] 17 U/L 0 - 45 U/L [facility] Bilirubin [Mass/Vol] 0.2 mg/dL 0 - 1.3 mg/dL [facility] Calcium [Mass/Vol] 8.5 mg/dL 8.4 - 10. 2 mg/dL [facility] Chloride [Moles/Vol] 112 mmol/L High 98 - 10 8 mmol/L [facility] Creatinine [Mass/Vol] 0.65 mg/dL 0.40 - 1.10 [facility] GFR/1.73 sq M predicted among non-blacks MDRD (S/P/Bld) [Vol rate/Area] The eGFR should be used for monitoring renal function only and not for medication dosing. [facility] GFR/1.73 sq M.predicted CKD-EPI (S/P/Bld) [Vol rate/Area] 122 >=60 mL/min/1.73 m2 [facility] Glucose [Mass/Vol] 255 mg/dL High 65 - 99 mg/dL [facility] HCO3 [Moles/Vol] 12 mmol/L Low 21 - 32 mmol/L [facility] Potassium [Moles/Vol] 3.6 mmol/L 3.5 - 5.1 mmol/L [facility] Protein [Mass/Vol] 5.8 g/dL Low 6 - 8 g/dL [facility] alth Sodium [Moles/Vol] 135 mmol/L 135 - 145 mmol/L [facility] Urea nitrogen [Mass/Vol] 9 mg/dL 8 - 25 mg/d L [facility] Urea nitrogen/Creatinine [Mass ratio] 13.8 mg/mg [facility] Albumin [Mass/Vol] 2.8 g/dL Low 3.2 - 5.2 g/dL [facility] ALP [Catalytic activity/Vol] 75 U/L 40 - 140 U/L [facility] ALT [Catalytic activity/Vol] 21 U/L 14 - 65 U/L [facility] Anion gap [Moles/Vol] 14 mmol/L 10 - 2 0 mmol/L [facility] AST [Catalytic activity/Vol] 20 U/L 0 - 45 U/L [facility] Bilirubin [Mass/Vol] 0.2 mg/dL 0 - 1.3 mg/dL [facility] Calcium [Mass/Vol] 8.7 mg/dL 8.4 - 10. 2 mg/dL [facility] Chloride [Moles/Vol] 115 mmol/L High 98 - 10 8 mmol/L [facility] Creatinine [Mass/Vol] 0.56 mg/dL 0.40 - 1.10 [facility] GFR/1.73 sq M predicted among non-blacks MDRD (S/P/Bld) [Vol rate/Area] The eGFR should be used for monitoring renal function only and not for medication dosing. [facility] GFR/1.73 sq M.predicted CKD-EPI (S/P/Bld) [Vol rate/Area] 128 >=60 mL/min/1.73 m2 [facility] Glucose [Mass/Vol] 100 mg/dL High 65 - 99 mg/dL [facility] HCO3 [Moles/Vol] 12 mmol/L Low 21 - 32 mmol/L [facility] Potassium [Moles/Vol] 3.7 mmol/L 3.5 - 5.1 mmol/L [facility] Protein [Mass/Vol] 6.3 g/dL 6 - 8 g/dL [facility] alth Sodium [Moles/Vol] 137 mmol/L 135 - 145 mmol/L [facility] Urea nitrogen [Mass/Vol] 9 mg/dL 8 - 25 mg/d L [facility] Urea nitrogen/Creatinine [Mass ratio] 16.1 mg/mg [facility] Albumin [Mass/Vol] 2.9 g/dL Low 3.2 - 5.2 g/dL [facility] ALP [Catalytic activity/Vol] 76 U/L 40 - 140 U/L [facility] ALT [Catalytic activity/Vol] 22 U/L 14 - 65 U/L [facility] Anion gap [Moles/Vol] 13 mmol/L 10 - 2 0 mmol/L [facility] AST [Catalytic activity/Vol] 18 U/L 0 - 45 U/L [facility] Bilirubin [Mass/Vol] 0.2 mg/dL 0 - 1.3 mg/dL [facility] Calcium [Mass/Vol] 8.4 mg/dL 8.4 - 10. 2 mg/dL [facility] Chloride [Moles/Vol] 115 mmol/L High 98 - 10 8 mmol/L [facility] Creatinine [Mass/Vol] 0.64 mg/dL 0.40 - 1.10 [facility] GFR/1.73 sq M predicted among non-blacks MDRD (S/P/Bld) [Vol rate/Area] The eGFR should be used for monitoring renal function only and not for medication dosing. [facility] GFR/1.73 sq M.predicted CKD-EPI (S/P/Bld) [Vol rate/Area] 123 >=60 mL/min/1.73 m2 [facility] Glucose [Mass/Vol] 124 mg/dL High 65 - 99 mg/dL [facility] HCO3 [Moles/Vol] 13 mmol/L Low 21 - 32 mmol/L [facility] Interpretation and review of laboratory results Abnormal [facility] Potassium [Moles/Vol] 3.3 mmol/L Low 3.5 - 5.1 mmol/L [facility] Protein [Mass/Vol] 6.4 g/dL 6 - 8 g/dL [facility] Sodium [Moles/Vol] 138 mmol/L 135 - 145 mmol/L [facility] Urea nitrogen [Mass/Vol] 8 mg/dL 8 - 25 mg/d L [facility] Urea nitrogen/Creatinine [Mass ratio] 12.5 mg/mg [facility] IRON STUDY WITH FERRITINon 1 08-09-2019 Ferritin [Mass/Vol] 56 ng/mL 13 - 150 ng/mL [facility] Interpretation and review of laboratory results Abnormal [facility] Iron [Mass/Vol] 15 ug/dL Low [facility] Iron binding capacity [Mass/Vol] 254 [facility] Iron saturation [Mass fraction] 6 % Low 20 - 50 % [facility] Magnesiumon 06-08-2020 Magnesium [Mass/Vol] 1.9 mg/dL 1.6 - 2 .4 mg/dL [facility] Otheron 06-08-2020 Interpretation and review of laboratory results Abnormal [facility] Interpretation and review of laboratory results Abnormal [facility] Interpretation and review of laboratory results Normal [facility] Interpretation and review of laboratory results Abnormal [facility] POC Glucoseon 06-08-2020 Glucose [Mass/Vol] 384 mg/dL High 65 - 99 mg/dL [facility] Interpretation and review of laboratory results Abnormal [facility] Glucose [Mass/Vol] 344 mg/dL High 65 - 99 mg/dL [facility] Glucose [Mass/Vol] 131 mg/dL High 65 - 99 mg/dL [facility] Interpretation and review of laboratory results Abnormal [facility] Glucose [Mass/Vol] 143 mg/dL High 65 - 99 mg/dL [facility] Interpretation and review of laboratory results Abnormal [facility] Glucose [Mass/Vol] 159 mg/dL High 65 - 99 mg/dL [facility] Interpretation and review of laboratory results Abnormal [facility] Glucose [Mass/Vol] 169 mg/dL High 65 - 99 mg/dL [facility] Interpretation and review of laboratory results Abnormal [facility] Glucose [Mass/Vol] 270 mg/dL High 65 - 99 mg/dL [facility] Interpretation and review of laboratory results Abnormal [facility] Glucose [Mass/Vol] 269 mg/dL High 65 - 99 mg/dL [facility] Interpretation and review of laboratory results Abnormal [facility] Glucose [Mass/Vol] 106 mg/dL High 65 - 99 mg/dL [facility] Interpretation and review of laboratory results Abnormal [facility] Glucose [Mass/Vol] 110 mg/dL High 65 - 99 mg/dL [facility] Interpretation and review of laboratory results Abnormal [facility] Glucose [Mass/Vol] 115 mg/dL High 65 - 99 mg/dL [facility] Interpretation and review of laboratory results Abnormal [facility] Glucose [Mass/Vol] 103 mg/dL High 65 - 99 mg/dL [facility] Interpretation and review of laboratory results Abnormal [facility] Glucose [Mass/Vol] 121 mg/dL High 65 - 99 mg/dL [facility] Interpretation and review of laboratory results Abnormal [facility] Glucose [Mass/Vol] 158 mg/dL High 65 - 99 mg/dL [facility] Interpretation and review of laboratory results Abnormal [facility] Glucose [Mass/Vol] 139 mg/dL High 65 - 99 mg/dL [facility] Interpretation and review of laboratory results Abnormal [facility] Phosphoruson 06-08-2020 Phosphate [Mass/Vol] 1.4 mg/dL Low 2.7 - 4 .5 mg/dL [facility] XR CHEST PA/APon 06-08-2020 XR CHEST PA/AP EXAMINATION: PORTABLE AP UPRIGHT CHEST: 06/08/2020 AT 2032 HOURS. HISTORY: Diminished to absent lung sounds on the right. Low-grade fever. COMPARISON FILMS: None. FINDINGS: Patient is somewhat rotated, lordotic. The visualized osseous structures appear intact. The heart size seems normal. The aorta is normal contour. There is some patchy density [id number] lung on the right without discrete focal consolidating infiltrates. No pleural effusions, pulmonary edema or pneumothorax. IMPRESSION: 1. Questionable patchy vague densities in the right lower lobe distribution which could be a nonspecific finding however atypical bacterial or viral pneumonia would be difficult to exclude. 2. No acute process otherwise or pleural effusions. [employer] Workstation ID: [id number] Dictated by: MICHAEL DEE on FriJun 08, 2020 9:43:13 PM EST Transcribed by: MORGAN BROWN on FriJun 08, 2020 9:55:57 PM EST Finalized by: MICHAEL DEE on FriJun 08, 2020 10:02:49 PM EST Normal [facility] Comment on above: Order Comment: Injur y/Trauma [...] normal contour. There is some patchy density [id number] lung on the right without discrete focal consolidating infiltrates. No pleural effusions, pulmonary edema or pneumothorax. [facility] 1. Questionable patchy vague densities in the right lower lobe distribution which could be a nonspecific finding however atypical bacterial or viral pneumonia would be difficult to exclude. 2. No acute process otherwise or pleural effusions. [employer] ([place]) Workstation ID: [id number] [facility] Interface, Rad In [place] [employer] [email or web address] - 06/08/2020 10:05 PM EST EXAMINATION: PORTABLE AP UPRIGHT CHEST: 06/08/2020 AT 2032 HOURS. HISTORY: Diminished to absent lung sounds on the right. Low-grade fever. COMPARISON FILMS: None. FINDINGS: Patient is somewhat rotated, lordotic. The visualized osseous structures appear intact. The heart size seems normal. The aorta is normal contour. There is some patchy density gwu-[id number] lung on the right without discrete focal consolidating infiltrates. No pleural effusions, pulmonary edema or pneumothorax. IMPRESSION: 1. Questionable patchy vague densities in the right lower lobe distribution which could be a nonspecific finding however atypical bacterial or viral pneumonia would be difficult to exclude. 2. No acute process otherwise or pleural effusions. [employer] ([place] Workstation ID: [id number] [facility] Basic Metabolic Panelon 12-0 Anion gap [Moles/Vol] 16 mmol/L 10 - 2 0 mmol/L [facility] Calcium [Mass/Vol] 8.2 mg/dL Low 8.4 - 10. 2 mg/dL [facility] Chloride [Moles/Vol] 114 mmol/L High 98 - 10 8 mmol/L [facility] Creatinine [Mass/Vol] 0.71 mg/dL 0.40 - 1.10 [facility] GFR/1.73 sq M predicted among non-blacks MDRD (S/P/Bld) [Vol rate/Area] The eGFR should be used for monitoring renal function only and not for medication dosing. [facility] GFR/1.73 sq M.predicted CKD-EPI (S/P/Bld) [Vol rate/Area] 117 >=60 mL/min/1.73 m2 [facility] Glucose [Mass/Vol] 172 mg/dL High 65 - 99 mg/dL [facility] HCO3 [Moles/Vol] 10 mmol/L Low 21 - 32 mmol/L [facility] Interpretation and review of laboratory results Abnormal [facility] Potassium [Moles/Vol] 2.8 mmol/L Low 3.5 - 5.1 mmol/L [facility] Sodium [Moles/Vol] 137 mmol/L 135 - 145 mmol/L [facility] Urea nitrogen [Mass/Vol] 7 mg/dL Low 8 - 25 mg/d L [facility] Urea nitrogen/Creatinine [Mass ratio] 9.9 mg/mg Low [facility] Beta-Hydroxybutyrateon 06-07 Beta hydroxybutyrate [Moles/Vol] 1.8 mmol/L High 0 - 0.3 mmol/L [facility] Interpretation and review of laboratory results Abnormal [facility] Beta hydroxybutyrate [Moles/Vol] 5.6 mmol/L High 0 - 0.3 mmol/L [facility] Interpretation and review of laboratory results Abnormal [facility] CBC WITH AUTO DIFFERENTIALon 06-07-2020 Basophils (Bld) [#/Vol] 0.04 10*3/uL [facility] Basophils/100 WBC (Bld) 0.3 % [facility] Eosinophils (Bld) [#/Vol] 0.00 10*3/uL [facility] Eosinophils/100 WBC (Bld) 0.0 % [facility] Erythrocyte distribution width (RBC) [Entitic vol] 13.5 % 11.6 - 14.8 % [facility] Hematocrit (Bld) [Volume fraction] 46.4 % High 36 - 46 % [facility] Hemoglobin (Bld) [Mass/Vol] 14.7 g/dL 12 - 16 g/dL [facility] Immature granulocytes (Bld) [#/Vol] 0.09 10*3/uL [facility] Immature granulocytes/100 WBC (Bld) 0.60 % [facility] Comment on above: The IG parameter is the percentage of metamyelocytes, myelocytes and promyelocytes. An immature granulocyte count (IG) of 1% or more suggests the possibility of infection, an IG count of 3% is very likely related to an infection. Interpretation and review of laboratory results Abnormal [facility] Lymphocytes (Bld) [#/Vol] 1.42 10*3/uL [facility] Lymphocytes/100 WBC (Bld) 9.1 % [facility] MCH (RBC) [Entitic mass] 27.2 pg 26 - 34 pg [facility] MCHC (RBC) [Mass/Vol] 31.7 g/dL 31 - 37 g/dL [facility] MCV (RBC) [Entitic vol] 85.8 fL 80 - 100 fL [facility] Monocytes (Bld) [#/Vol] 0.82 10*3/uL [facility] Monocytes/100 WBC (Bld) 5.3 % [facility] Neutrophils (Bld) [#/Vol] 13.19 10*3/uL High [facility] Neutrophils/100 WBC (Bld) 84.7 % [facility] Nucleated RBC (Bld) [#/Vol] 0.00 10*3/uL [facility] Nucleated RBC/100 WBC (Bld) [Ratio] 0.0 % [facility] Platelet mean volume (Bld) [Entitic vol] 9.5 fL 9.4 - 12.4 fL [facility] Platelets (Bld) [#/Vol] 302 10*3/uL [facility] RBC (Bld) [#/Vol] 5.41 10*6/uL High [facility] ealth WBC (Bld) [#/Vol] 15.56 10*3/uL [facility] Metabolic Pane galileo 06-07-2020 Albumin [Mass/Vol] 3.4 g/dL 3.2 - 5.2 g/dL [facility] ALP [Catalytic activity/Vol] 94 U/L 40 - 140 U/L [facility] ALT [Catalytic activity/Vol] 27 U/L 14 - 65 U/L [facility] Anion gap [Moles/Vol] 22 mmol/L High 10 - 2 0 mmol/L [facility] AST [Catalytic activity/Vol] 27 U/L 0 - 45 U/L [facility] Bilirubin [Mass/Vol] 0.4 mg/dL 0 - 1.3 mg/dL [facility] Calcium [Mass/Vol] 8.0 mg/dL Low 8.4 - 10. 2 mg/dL [facility] Chloride [Moles/Vol] 113 mmol/L High 98 - 10 8 mmol/L [facility] Creatinine [Mass/Vol] 0.73 mg/dL 0.40 - 1.10 [facility] GFR/1.73 sq M predicted among non-blacks MDRD (S/P/Bld) [Vol rate/Area] The eGFR should be used for monitoring renal function only and not for medication dosing. [facility] GFR/1.73 sq M.predicted CKD-EPI (S/P/Bld) [Vol rate/Area] 113 >=60 mL/min/1.73 m2 [facility] Glucose [Mass/Vol] 199 mg/dL High 65 - 99 mg/dL [facility] HCO3 [Moles/Vol] 6 mmol/L Critically low 21 - 32 mmol/L [facility] Interpretation and review of laboratory results Abnormal [facility] Potassium [Moles/Vol] 4.1 mmol/L 3.5 - 5.1 mmol/L [facility] Protein [Mass/Vol] 7.1 g/dL 6 - 8 g/dL [facility] Sodium [Moles/Vol] 137 mmol/L 135 - 145 mmol/L [facility] Urea nitrogen [Mass/Vol] 11 mg/dL 8 - 25 mg/d L [facility] Urea nitrogen/Creatinine [Mass ratio] 15.1 mg/mg [facility] Hemoglobin A1con 06-07-2020 Average glucose Estimated from glycated hemoglobin mass conc (Bld) 464 mg/dL High 74 - 114 mg/dL [facility] HbA1c (Bld) [Mass fraction] 17.8 % High 4.2 - 5.6 % [facility] Interpretation and review of laboratory results Abnormal [facility] Normal: 4.2% - 5.6% Increased risk for diabetes: 5.7% - 6.4% Diabetes: >= 6.5% Pediatrics: No established reference range Estimated average glucose: 74-114 mg/dL [facility] Magnesium Levelon 06-07-2020 Interpretation and review of laboratory results Normal [facility] Magnesium [Mass/Vol] 2.0 mg/dL 1.6 - 2 .4 mg/dL [facility] POC Glucoseon 06-07-2020 Glucose [Mass/Vol] 135 mg/dL High 65 - 99 mg/dL [facility] Interpretation and review of laboratory results Abnormal [facility] Glucose [Mass/Vol] 164 mg/dL High 65 - 99 mg/dL [facility] Interpretation and review of laboratory results Abnormal [facility] Glucose [Mass/Vol] 190 mg/dL High 65 - 99 mg/dL [facility] Interpretation and review of laboratory results Abnormal [facility] Glucose [Mass/Vol] 180 mg/dL High 65 - 99 mg/dL [facility] Interpretation and review of laboratory results Abnormal [facility] Glucose [Mass/Vol] 159 mg/dL High 65 - 99 mg/dL [facility] Interpretation and review of laboratory results Abnormal [facility] Glucose [Mass/Vol] 172 mg/dL High 65 - 99 mg/dL [facility] Interpretation and review of laboratory results Abnormal [facility] Glucose [Mass/Vol] 200 mg/dL High 65 - 99 mg/dL [facility] Interpretation and review of laboratory results Abnormal [facility] Glucose [Mass/Vol] 201 mg/dL High 65 - 99 mg/dL [facility] Interpretation and review of laboratory results Abnormal [facility] Glucose [Mass/Vol] 228 mg/dL High 65 - 99 mg/dL [facility] Interpretation and review of laboratory results Abnormal [facility] Glucose [Mass/Vol] 238 mg/dL High 65 - 99 mg/dL [facility] Interpretation and review of laboratory results Abnormal [facility] Glucose [Mass/Vol] 178 mg/dL High 65 - 99 mg/dL [facility] Interpretation and review of laboratory results Abnormal [facility] Glucose [Mass/Vol] 186 mg/dL High 65 - 99 mg/dL [facility] Interpretation and review of laboratory results Abnormal [facility] Phosphoruson 06-07-2020 Interpretation and review of laboratory results Abnormal [facility] Phosphate [Mass/Vol] 2.0 mg/dL Low 2.7 - 4 .5 mg/dL [facility] TSH with Reflex Free T4on Interpretation and review of laboratory results Normal [facility] TSH Qn 0.66 m[IU]/L [facility] Vital Signs Date Time Vital Sign Value Performing Clinician Facility 07-04-2023 12:00-0500 Body temperature 98.01 [degF] Letty Yee MD Work Phone: [facility] 07-04-2023 12:00-0500 Diastolic blood pressure 78 mm[Hg] Letty Yee MD Work Phone: [facility] 07-04-2023 12:00-0500 Heart rate 102 /min Letty Yee MD Work Phone: [facility] 07-04-2023 12:00-0500 Respiratory rate 14 /min Letty Yee MD Work Phone: [facility] 07-04-2023 12:00-0500 SaO2% (BldA) [Mass fraction] 99 % Letty Yee MD Work Phone: [facility] 07-04-2023 12:00-0500 Systolic blood pressure 130 mm[Hg] Letty Yee MD Work Phone: [facility] 07-04-2023 02:48-0500 Body mass index (BMI) [Ratio] 21.76 kg/m2 Letty Yee MD Work Phone: [facility] 07-04-2023 02:48-0500 Body weight 64.9 kg Letty Yee MD Work Phone: [facility] 07-03-2023 10:34-0500 Body height 172.7 cm Letty Yee MD Work Phone: [facility] 07-02-2023 19:16-0500 SaO2% (BldA) [Mass fraction] 100 % SAENZAYAH YEE [facility] Comment on above: Performed By: #### VBG #### [facility] ([id number]) [address] [place] [address] 07-02-2023 17:18-0500 Body temperature 98.6 [degF] Letty Yee MD Work Phone: [facility] 07-02-2023 17:18-0500 SaO2% (BldA) [Mass fraction] 100 % Letty Yee MD Work Phone: [facility] 08-01-2020 19:49-0500 Body Temperature 98.01 [degF] [facility] 08-01-2020 19:49-0500 BP Diastolic 94 mm[Hg] [facility] [place] 08-01-2020 19:49-0500 BP Systolic 146 mm[Hg] [facility] [place] 02-02-2021 19:49-0500 Pulse (Heart Rate) 59 /min [facility] L[facility], [place] 08-01-2020 19:49-0500 Respiratory Rate 18 /min [facility] Morse [facility], [place] 08-01-2020 12:00-0500 Pulse Oximetry 92 % [facility] Lito [facility] , [place] 08-01-2020 06:00-0500 BMI (Body Mass Index) 22.31 kg/m2 [facility] [place] 08-01-2020 06:00-0500 Body weight 58.97 kg [facility] [place] 07-29-2020 20:00-0500 Height 162.6 cm [facility] [place] 07-29-2020 19:50-0500 Respiratory rate NOT REPORTED [facility] Lito [facility], [place] 06-10-2020 15:59-0500 Body Temperature 98.1 [degF] [facility] 06-10-2020 15:59-0500 BP Diastolic 80 mm[Hg] [facility] 06-10-2020 15:59-0500 BP Systolic 115 mm[Hg] [facility] 06-10-2020 15:59-0500 Pulse (Heart Rate) 67 /min [facility] 06-10-2020 15:59-0500 Pulse Oximetry 99 % [facility] 06-10-2020 15:59-0500 Respiratory Rate 16 /min [facility] 06-10-2020 04:39-0500 BMI (Body Mass Index) 20.18 kg/m2 [facility] 06-10-2020 04:39-0500 Body weight 60.2 kg [facility] 06-07-2020 12:31-0500 Height 172.7 cm [facility] Encounter Date Encounter Type Care Provider Facility Start: 07-04-2023 End: 07-04-2023 Emergency department [facility] Start: 07-03-2023 End: 07-05-2023 Evaluation and management of inpatient CHAS DARDEN [facility] Start: 07-02-2023 End: 07-04-2023 Evaluation and management of inpatient SAENZ MIKY YEE [facility] Start: 07-02-2023 ambulatory ARCADIO IGLESIAS [facility] Start: 07-02-2023 End: 07-04-2023 Evaluation and management of inpatient Letty Miky Yee MD Work Phone: [facility] - GEN 7 ICU Comment on above: Diabetic ketoacidosi s without coma associated with type 1 diabetes mellitus ([facility]) (Primary Dx); Type 1 diabetes mellitus with ketoacidosis without coma ([facility]) Start: 06-12-2023 End: 06-13-2023 Evaluation and management of inpatient ARCADIO IGLESIAS Facility:[facility] Start: 05-30-2023 End: 05-30-2023 Emergency department patient visit ARCADIO IGLESIAS Facility:[facility] Start: 03-18-2023 End: 03-20-2023 Evaluation and management of inpatient MARTIN DAVIS [facility] Start: 03-17-2023 End: 03-18-2023 Emergency department patient visit Linn H lang Facility:[facility] Start: 03-16-2023 End: 03-16-2023 ambulatory ARCADIO IGLESIAS Facility:[facility] Start: 08-25-2022 End: 08-26-[address] ARCADIO IGLESIAS Facility:[facility] Start: 03-18-2022 End: 03-18-[address] ARCADIO IGLESIAS Facility:[facility] Start: 12-26-[address] ARCADIO IGLESIAS Facil ity:[facility] Start: 08-17-2020 End: 08-17-2020 Orders Only Uyen Otto Work Phone: [facility] Start: 07-29-2020 End: 08-02-2020 Evaluation and management of inpatient Naomy Morse Work Phone: [facility] Start: 07-29-2020 End: 07-29-2020 Patient encounter procedure [facility] Facility:[facility] Start: 06-07-2020 End: 06-10-2020 Evaluation and management of inpatient PHYSICIAN NO [facility] Start: 06-07-2020 End: 06-10-2020 Evaluation and management of inpatient Goitom Andom Asgedom Work Phone: [facility] 2 Topmost Start: 07-07-2018 End: 07-08-2018 Patient encounter procedure DEFAULT PHYSICIAN Facility:[facility] Procedures Date Procedure Procedure Detail Performing Clinician [...] MD Work Phone: Start: 07-03-2023 Electrolyte panel iTm Mensah MD Work Phone: Start: 07-03-2023 Gluc [...] Phone: Start: 07-30-2020 SPECIMEN REJECTION [facility] Work Phone: Start: 07-30-2020 End: 07-30-2020 Glucose blood reagent strip Stan Ana Work Phone: Start: 07-30-2020 TOX SCR, COMPLETE BL Ve nkat [facility] Work Phone: Start: 07-30-2020 End: 07-30-2020 Glucose [...] End: 07-30-2020 Glucose blood reagent strip Stan [employer] Work Phone: Start: 07-30-2020 Assay of magnesium [...] Start: 12-06-2020 HbA1c (Bld) [Mass fraction] A1C [facility] Start: 10-28-2020 HbA1c (Bld) [Mass fraction] A1C test (Diabetic or Prediabetic) [place], [place] Start: 02-29-2020 Influenza vaccination Flu vaccine (#1) [place], [place] Start: 02-29-2020 Influenza vaccination given Sequential Influenza Vaccine (#1) [facility] Start: 08-05-2019 Albumin DL <= 20 mg/L (U) [Mass/Vol] Urine Microalbumin [facility] Start: 2014 Screening for malignant neoplasm of cervix Cervical cancer screen [place], [place] Start: 2012 DTaP/Tdap/Td vaccine (1 - Tdap) DTaP/Tdap/Td vaccine (1 - Tdap) [place] Start: 2011 Diabetic microalbuminuria test Diabetic microalbuminuria test [place] Start: 2011 Hepatitis C antibody, confirmatory test Hepatitis C Screening [facility] Start: 2008 HIV screening [facility] Start: 2005 Adolescent depression screening assessment Depression Screening (PHQ9) [facility] Start: 2003 Diabetic foot examination [facility] Start: 2003 Diabetic retinal exam Diabetic retinal exam [place], [place] Start: 2003 Lipid panel Lipid screen [place], [place] Start: 2003 Ophthalmic examination and evaluation Ophthalmology Exam [facility] Start: 1996 History and physical examination, annual for health maintenance Wellness Visit [facility] Start: 1994 Varicella vaccine (1 of 2 - 2-dose childhood series) Varicella vaccine (1 of 2 - 2-dose childhood series) [place], [place] Start: 1993 Hepatitis C screening Hepatitis C screen [place], [place] Start: 1993 Screening for malignant neoplasm of cervix Pap Smear [facility] Start: 1993 Tetanus vaccination Tetanus: Every 10yrs [facility] End: 08-05-2020 Basic metabolic 2000 panel Basic Metabolic Panel Lab Timed Every 4 Hours (Lab) for 25 Occurrences starting 08/01/2020 until 08/05/2020, 2 completed [place] Comment on above: Every 4 Hours (Lab) for 25 Occurrences s tarting 08/01/2020 until 08/05/2020, 2 completed CBC WITH AUTO DIFFERENTIAL CBC WITH AUTO DIFFERENTIAL Lab Routine Daily until discontinued starting 08/02/2020 [facility] [place] Comment on above: Daily until discontinued starting 2020 [facility] End: 07-[facility]2020 Drugs of abuse 9 serum w/ reflex Drugs of abuse 9 serum w/ reflex Lab Routine Once for 1 Occurrences starting 07/30/2020 until 07/30/2020 [facility] [place] Comment on above: Once for 1 Occurrences starting 07/30/19 21 until 07/30/2020 Drugs of abuse 9 ser um w/ reflex Drugs of abuse 9 serum w/ reflex Lab Routine 07/30/2020 12:02 PM EST [facility] [place] End: 08-05-2020 Magnesium [Mass/Vol] Magnesium Lab Timed Every 4 Hours (Lab) for 25 Occurrences starting 08/01/2020 until 08/05/2020, 2 completed [facility] [place] Comment on above: Every 4 Hours (Lab) for 25 Occurrences s tarting 08/01/2020 until 08/05/2020, 2 completed End: 07-03-2023 Magnesium [Mass/volume] in Serum or Plasma Magnesium Lab Routine Once for 1 Occurrences starting 07/03/2023 until 07/03/2023 [facility] Work Phone: Comment on above: Once for 1 Occurrences starting 07/03/19 24 until 07/03/2023 Oxygen therapy [[facility] Data Set] Initiate Oxygen Therapy Protocol Respiratory Care Routine Daily until discontinued starting 07/29/2020 [facility] [place] Comment on above: Daily until discontinued starting 2020 End: 08-05-2020 Phosphate [Mass/Vol] Phosphorus Lab Timed Every 4 Hours (Lab) for 25 Occurrences starting 08/01/2020 until 08/05/2020, 2 completed [facility] [place] Comment on above: Every 4 Hours (Lab) for 25 Occurrences s tarting 08/01/2020 until 08/05/2020, 2 completed POCT glucose [facility] [place] Comment on above: 4X Daily (AC & HS) until discontinued st arting 07/31/2020 As Needed until disc ontinued starting 07/31/2020 End: 03-12-2021 POCT Glucose - every hour POCT Glucose - every hour Point of Care Testing Timed Every Hour (Lab) for 980 Occurrences starting 07/30/2020 until 09/08/2020 [facility] ANTHONY Comment on above: Every Hour (Lab) for 980 Occurrences sta rting 07/30/2020 until 09/08/2020 End: 07-30-2020 PREVIOUS SPECIMEN PREVIOUS SPECIMEN Lab Routine Once for 1 Occurrences starting 07/30/2020 until 07/30/2020 [facility] AN[facility] Comment on above: Once for 1 Occurrences starting 07/30/19 21 until 07/30/2020 PREVIOUS SPECIMEN PREVIOUS SPECI MEN Lab Routine 07/30/2020 12:02 PM EST [facility] TOX SCR, COMPLETE BL TOX SCR, CO MPLETE BL Lab Add-On 07/30/2020 10:11 AM BARB [facility] Payers Date Payer Category Payer Unknown [id number] 2015 Medicaid [place] [employer] [place] [employer] [id number] 2015-Present [phone] [place] [id number] 2015 Unknown [employer] [employer] [id number] 2015-Present [id number] 1993 Unknown [id number] 1993 Unknown [id number] 1993 Unknown [id number] 1993 Unknown [id number] 1993 Unknown [id number] 1993 Unknown [id number] [id number] 1993 Unknown [id number] [id number] 1993 Unknown [id number] 1993 Unknown [id number] [id number] 1993 Unknown [id number] [id number] 1993 Unknown [id number] [id number] 1993 Unknown [id number] [id number] 1993 Unknown [id number] [id number] 1993 Unknown [id number] 1993 Unknown [id number] 1959 Self-pay 1961 Unknown [id number] Unknown Social History Date Type Detail Facility Tobacco smoking stat [facility] Unknown if ever smoked [facility] Start: 1993 Sex Assigned At Not on file [facility] Exposure to SARS-CoV -2 (event) Not sure [facility] Start: 07-03-2023 Tobacco smoking stat [facility] Smokes tobacco daily [facility] History of tobacco use Cigarette Smoker P [facility] Start: 06-15-2022 End: 07-03-2023 Cigarettes smoked current (pack per day) - Reported 0.5 [facility] Start: 07-03-2023 Tobacco use and exposure Smoke less tobacco non-user [facility] Start: 07-04-2023 Alcohol intake Current non-dr clinical data assistant of alcohol (finding) [facility] Start: 06-15-2022 End: 07-04-2023 Social connection and isolation panel [facility] Do you belong to any clubs or organizations such as oriental orthodox groups, unions, fraternal or athletic groups, or school groups? No [facility] Are you now , , , , never or living with a partner? Patient declined [facility] How often to you hav e a drink containing alcohol? Never [facility] Do you feel stress - tense, restless, nervous, or anxious, or unable to sleep at night because your mind is troubled all the time - these days [OSQ] Not at all [facility] Start: 07-03-2023 Tobacco Comment hasn't smoked in 1 week, one cig per day [facility] Goals Date Patient Goal Desired Activity /State [...] from the original note were not included. [facility] Academic Endocrinology [place] [facility] [address] [place] [address] Service Pager: Macy Drew MD, Interim Chief [...] 140-180mg/dL in accordance with recommendations from the [place] [employer]. Blood glucoses above 200 mg/dl are [facility] monitored performance measures. ASSESSMENT and PLAN: [...] clinic/Endocrinology) within 1-2 weeks of discharge, at [facility], [address], [place] [address]. Need to call to schedule it: . [...] incarceration. Per chart, patient initially presented to [facility] 07/02 via EMS for altered mental [...] I did not find any documentation from oxide furnace tender follow up. ROS/Subjective/Interval history: Pt was sleepy [...] use, recent incarceration. Patient initially presented to [facility] 07/02 via EMS for altered mental [...] 250cc/hr. Failed to improve requiring transfer to [facility] for higher acuity care in ICU. Upon [...] progress note was completed using a voice paper rewinder operator system. Every effort was made to ensure accuracy. However, inadvertent computerized paper rewinder operator errors may be present. Ronal Logan MD PGY1 IM Resident [facility] 07/04/23 1:53 PM Associated attestation - Letty Yee MD - 07/04/2023 3:59 PM EST I have seen and examined the patient on rounds with the resident/fellow. I repeated the brown components of the exam. I confirm the note and agree with the assessment and plan except as stated below: Letty Yee MD [facility] Critical [facility] Images from the [...] use, recent incarceration. Patient initially presented to [facility] 07/02 via EMS for altered mental [...] 250cc/hr. Failed to improve requiring transfer to [facility] for higher acuity care in ICU. Upon [...] progress note was completed using a voice paper rewinder operator system. Every effort was made to ensure accuracy. However, inadvertent computerized paper rewinder operator errors may be present. Ronal Logan MD PGY1 IM Resident [facility] 07/03/23 9:58 AM Associated attestation - Letty Yee MD - 07/03/2023 9:06 PM EST I have seen and examined the patient on rounds with the resident/fellow. I repeated the brown components of the exam. I confirm the note and agree with the assessment and plan except as stated below: Letty Yee MD [facility] documented in this encounter [facility] 07-04-2023 Progress note Formatting of t his [...] meetings. Patient was born and raised in [place] and is a high school graduate. She is with two children, both of whom live with her parents. 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 She currently lives with friends in [place]. Patient has been linked with [facility] for mental health services in the past. She states she is active with NA meetings. Patient is willing to consider recommendations for additional mental health services. Will monitor, assist in coordinating such services as appropriate. - STEPHANIA Ma 07/04/23 3:53 PM [facility] 07-04-2023 Miscellaneous Notes Met with patient, introduced [...] meetings. Patient was born and raised in [place] and is a high school graduate. She is with two children, both of whom live with her parents. 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 She currently lives with friends in [place]. Patient has been linked with [facility] for mental health services in the past. [...] Description: INTERVENTIONS: 1. Encourage patient or legal wholesale representative to report early pain and ask [...] per policy 9. Teach patient or legal wholesale representative interventions for comforting Outcome: Progressing Note: [...] at the bedside 7. Instruct patient/ patient wholesale representative about use of safety devices 8. Include patient/ patient wholesale representative in decisions related to safety Outcome: [...] hygiene technique 7. Identify and instruct patient/patient wholesale representative in use of appropriate isolation precautions for identified infection/symptoms 8. Provide and discuss with patient/patient wholesale representative on educational MDRO sheet 9. Encourage and monitor nutritional status daily and consult dye winch operator if indicated 10. Implement neutropenic guidelines as needed 11. Review exposure to history of communicable disease and recent travel history on admission 12. Encourage annual influenza vaccine 13. Encourage pneumonia vaccine Outcome: Progressing Note: Evaluation of progress towards goal: Pt receiving antibiotics. Labs drawn and monitored. Sites assessed and reassessed for s/s of infection. Problem: Knowledge Deficit Goal: Patient/patient wholesale representative demonstrates understanding of disease process, treatment [...] Score of =/> 25 or indicated by [facility] Assessment Goal: Patient should be free from fall Description: Interventions: 1. [place] to environment 2. Hourly rounds addressing the [...] non-skid footwear 11. Teach patient and patient wholesale representative to maintain environment for safety and [...] (cane, walker) within reach 19. Request patient wholesale representative bring adaptive equipment/mobility aids from home or obtain and provide as needed 20. Consult pharmacy regarding effects of med's affecting mobility, cognition, and alternatives 21. Obtain physician order for PT if risk factors associated with mobility are present 22. Obtain physician order for OT as appropriate 23. Utilize diversional activities 24. Educate patient and patient wholesale representative how to maintain a safe environment during visitation times (notify nurse prior to leaving bedside) 25. Consider appropriateness of medical or non-medical support assistant 26. Set up voiding schedule as appropriate [...] discharge planning process 5. Communicate referral to press brake operator as appropriate 6. Communicate referral to dye winch operator as appropriate 7. Collaborate with case management/criminal justice social worker for discharge needs Outcome: Progressing [...] supplement as ordered 13. Collaborate with clinical dye winch operator 14. Include patient/ patient's wholesale representative in decisions related to nutrition Outcome: [...] Description: INTERVENTIONS: 1. Encourage patient or legal wholesale representative to report early pain and ask [...] per policy 9. Teach patient or legal wholesale representative interventions for comforting Outcome: Progressing Note: [...] at the bedside 7. Instruct patient/ patient wholesale representative about use of safety devices 8. Include patient/ patient wholesale representative in decisions related to safety Outcome: [...] hygiene technique 7. Identify and instruct patient/patient wholesale representative in use of appropriate isolation precautions for identified infection/symptoms 8. Provide and discuss with patient/patient wholesale representative on educational MDRO sheet 9. Encourage and monitor nutritional status daily and consult dye winch operator if indicated 10. Implement neutropenic guidelines as needed 11. Review exposure to history of communicable disease and recent travel history on admission 12. Encourage annual influenza vaccine 13. Encourage pneumonia vaccine Outcome: Progressing Note: Evaluation of progress towards goal: Patient is afebrile at present time. Will monitor labs and vital signs. Problem: Knowledge Deficit Goal: Patient/patient wholesale representative demonstrates understanding of disease process, treatment [...] Score of =/> 25 or indicated by [facility] Assessment Goal: Patient should be free from fall Description: Interventions: 1. [place] to environment 2. Hourly rounds addressing the [...] non-skid footwear 11. Teach patient and patient wholesale representative to maintain environment for safety and [...] (cane, walker) within reach 19. Request patient wholesale representative bring adaptive equipment/mobility aids from home or obtain and provide as needed 20. Consult pharmacy regarding effects of med's affecting mobility, cognition, and alternatives 21. Obtain physician order for PT if risk factors associated with mobility are present 22. Obtain physician order for OT as appropriate 23. Utilize diversional activities 24. Educate patient and patient wholesale representative how to maintain a safe environment during visitation times (notify nurse prior to leaving bedside) 25. Consider appropriateness of medical or non-medical support assistant 26. Set up voiding schedule as appropriate [...] Description: INTERVENTIONS: 1. Encourage patient or legal wholesale representative to report early pain and ask [...] per policy 9. Teach patient or legal wholesale representative interventions for comforting Outcome: Progressing Note: [...] at the bedside 7. Instruct patient/ patient wholesale representative about use of safety devices 8. Include patient/ patient wholesale representative in decisions related to safety Outcome: [...] hygiene technique 7. Identify and instruct patient/patient wholesale representative in use of appropriate isolation precautions for identified infection/symptoms 8. Provide and discuss with patient/patient wholesale representative on educational MDRO sheet 9. Encourage and monitor nutritional status daily and consult dye winch operator if indicated 10. Implement neutropenic guidelines as needed 11. Review exposure to history of communicable disease and recent travel history on admission 12. Encourage annual influenza vaccine 13. Encourage pneumonia vaccine Outcome: Progressing Note: Evaluation of progress towards goal: Pt is afebrile at this time. CBC being monitored Problem: Knowledge Deficit Goal: Patient/patient wholesale representative demonstrates understanding of disease process, treatment [...] be free from fall Description: Interventions: 1. [place] to environment 2. Hourly rounds addressing the [...] non-skid footwear 11. Teach patient and patient wholesale representative to maintain environment for safety and [...] (cane, walker) within reach 19. Request patient wholesale representative bring adaptive equipment/mobility aids from home or obtain and provide as needed 20. Consult pharmacy regarding effects of med's affecting mobility, cognition, and alternatives 21. Obtain physician order for PT if risk factors associated with mobility are present 22. Obtain physician order for OT as appropriate 23. Utilize diversional activities 24. Educate patient and patient wholesale representative how to maintain a safe environment during visitation times (notify nurse prior to leaving bedside) 25. Consider appropriateness of medical or non-medical support assistant 26. Set up voiding schedule as appropriate [...] discharge planning process 5. Communicate referral to press brake operator as appropriate 6. Communicate referral to dye winch operator as appropriate 7. Collaborate with case management/criminal justice social worker for discharge needs Outcome: Progressing [...] Description: INTERVENTIONS: 1. Encourage patient or legal wholesale representative to report early pain and ask [...] per policy 9. Teach patient or legal wholesale representative interventions for comforting Outcome: Progressing Note: [...] at the bedside 7. Instruct patient/ patient wholesale representative about use of safety devices 8. Include patient/ patient wholesale representative in decisions related to safety Outcome: [...] hygiene technique 7. Identify and instruct patient/patient wholesale representative in use of appropriate isolation precautions for identified infection/symptoms 8. Provide and discuss with patient/patient wholesale representative on educational MDRO sheet 9. Encourage and monitor nutritional status daily and consult dye winch operator if indicated 10. Implement neutropenic guidelines as needed 11. Review exposure to history of communicable disease and recent travel history on admission 12. Encourage annual influenza vaccine 13. Encourage pneumonia vaccine Outcome: Progressing Note: Evaluation of progress towards goal: Patient is afebrile at present time. Will monitor labs and vital signs. Problem: Knowledge Deficit Goal: Patient/patient wholesale representative demonstrates understanding of disease process, treatment [...] Score of =/> 25 or indicated by [facility] Assessment Goal: Patient should be free from fall Description: Interventions: 1. [place] to environment 2. Hourly rounds addressing the [...] non-skid footwear 11. Teach patient and patient wholesale representative to maintain environment for safety and [...] (cane, walker) within reach 19. Request patient wholesale representative bring adaptive equipment/mobility aids from home or obtain and provide as needed 20. Consult pharmacy regarding effects of med's affecting mobility, cognition, and alternatives 21. Obtain physician order for PT if risk factors associated with mobility are present 22. Obtain physician order for OT as appropriate 23. Utilize diversional activities 24. Educate patient and patient wholesale representative how to maintain a safe environment during visitation times (notify nurse prior to leaving bedside) 25. Consider appropriateness of medical or non-medical support assistant 26. Set up voiding schedule as appropriate [...] with pillow support. documented in this encounter [facility] [employer] 07-04-2023 Hospital course Narrative Images from the [...] use, recent incarceration. Patient initially presented to [facility] 07/02 via EMS for altered mental [...] 250cc/hr. Failed to improve requiring transfer to [facility] for higher acuity care in ICU. Upon [...] 1-2 weeks of discharge Follow up with oxide furnace tender within 3 days of discharge No future [...] except as stated below: Letty Yee MD [facility] Critical [facility] documented in this encounter [facility] 07-04-2023 Plan of care note Discharge Against [...] lantus 20 BID Ronal Logan MD PGY-1 [employer] 07-04-2023 Hospital Discharge instructions Ronal Logan MD [...] manage your T1DM. documented in this encounter [employer] 07-04-2023 Plan of care note Problem: Pain Goal: Patient goal is pain score less than 4, able to rest, and participant in treatment plan as appropriate Description: INTERVENTIONS: 1. Encourage patient or legal wholesale representative to report early pain and ask [...] per policy 9. Teach patient or legal wholesale representative interventions for comforting Outcome: Progressing Note: [...] at the bedside 7. Instruct patient/ patient wholesale representative about use of safety devices 8. Include patient/ patient wholesale representative in decisions related to safety Outcome: [...] hygiene technique 7. Identify and instruct patient/patient wholesale representative in use of appropriate isolation precautions for identified infection/symptoms 8. Provide and discuss with patient/patient wholesale representative on educational MDRO sheet 9. Encourage and monitor nutritional status daily and consult dye winch operator if indicated 10. Implement neutropenic guidelines as needed 11. Review exposure to history of communicable disease and recent travel history on admission 12. Encourage annual influenza vaccine 13. Encourage pneumonia vaccine Outcome: Progressing Note: Evaluation of progress towards goal: Pt receiving antibiotics. Labs drawn and monitored. Sites assessed and reassessed for s/s of infection. Problem: Knowledge Deficit Goal: Patient/patient wholesale representative demonstrates understanding of disease process, treatment [...] be free from fall Description: Interventions: 1. [place] to environment 2. Hourly rounds addressing the [...] non-skid footwear 11. Teach patient and patient wholesale representative to maintain environment for safety and [...] (cane, walker) within reach 19. Request patient wholesale representative bring adaptive equipment/mobility aids from home or obtain and provide as needed 20. Consult pharmacy regarding effects of med's affecting mobility, cognition, and alternatives 21. Obtain physician order for PT if risk factors associated with mobility are present 22. Obtain physician order for OT as appropriate 23. Utilize diversional activities 24. Educate patient and patient wholesale representative how to maintain a safe environment during visitation times (notify nurse prior to leaving bedside) 25. Consider appropriateness of medical or non-medical support assistant 26. Set up voiding schedule as appropriate [...] discharge planning process 5. Communicate referral to press brake operator as appropriate 6. Communicate referral to dye winch operator as appropriate 7. Collaborate with case management/criminal justice social worker for discharge needs Outcome: Progressing [...] supplement as ordered 13. Collaborate with clinical dye winch operator 14. Include patient/ patient's wholesale representative in decisions related to nutrition Outcome: [...] carballo care done prn and per policy. [facility] [employer] [facility] 07-03-2023 Plan of care note Problem: Pain Goal: Patient goal is pain score less than 4, able to rest, and participant in treatment plan as appropriate Description: INTERVENTIONS: 1. Encourage patient or legal wholesale representative to report early pain and ask [...] per policy 9. Teach patient or legal wholesale representative interventions for comforting Outcome: Progressing Note: [...] at the bedside 7. Instruct patient/ patient wholesale representative about use of safety devices 8. Include patient/ patient wholesale representative in decisions related to safety Outcome: [...] hygiene technique 7. Identify and instruct patient/patient wholesale representative in use of appropriate isolation precautions for identified infection/symptoms 8. Provide and discuss with patient/patient wholesale representative on educational MDRO sheet 9. Encourage and monitor nutritional status daily and consult dye winch operator if indicated 10. Implement neutropenic guidelines as needed 11. Review exposure to history of communicable disease and recent travel history on admission 12. Encourage annual influenza vaccine 13. Encourage pneumonia vaccine Outcome: Progressing Note: Evaluation of progress towards goal: Patient is afebrile at present time. Will monitor labs and vital signs. Problem: Knowledge Deficit Goal: Patient/patient wholesale representative demonstrates understanding of disease process, treatment [...] Score of =/> 25 or indicated by [facility] Assessment Goal: Patient should be free from fall Description: Interventions: 1. [place] to environment 2. Hourly rounds addressing the [...] non-skid footwear 11. Teach patient and patient wholesale representative to maintain environment for safety and [...] (cane, walker) within reach 19. Request patient wholesale representative bring adaptive equipment/mobility aids from home or obtain and provide as needed 20. Consult pharmacy regarding effects of med's affecting mobility, cognition, and alternatives 21. Obtain physician order for PT if risk factors associated with mobility are present 22. Obtain physician order for OT as appropriate 23. Utilize diversional activities 24. Educate patient and patient wholesale representative how to maintain a safe environment during visitation times (notify nurse prior to leaving bedside) 25. Consider appropriateness of medical or non-medical support assistant 26. Set up voiding schedule as appropriate [...] turned every 2 hours with pillow support. [facility] 07-03-2023 Consult note Associated Order (s): IP CONSULT TO ENDOCRINOLOGY Images from the original note were not included. [facility] [address] [place] [address] Service Pager: Macy Drew MD, Interim Chief [...] 140-180mg/dL in accordance with recommendations from the [place] [employer]. Blood glucoses above 200 mg/dl [...] incarceration. Per chart, patient initially presented to [facility] 07/02 via EMS for altered mental [...] I did not find any documentation from oxide furnace tender follow up. Diabetes History: Duration of Diabetes: [...] Anxiety Asthma Depression Diabetes [place] type I [place] DM type 1 (diabetes mellitus, type 1) [place] Genital herpes GERD (gastroesophageal reflux disease) Herpes [...] >16.5 (H) 06/07/2021 Catrina Longo PA-C 07/03/23 [facility] 07-03-2023 Consult note Associated Order (s): IP CONSULT TO ENDOCRINOLOGY Images from the original note were not included. [facility] [address] [place] [address] Service Pager: Macy Drew MD, Interim Chief [...] 140-180mg/dL in accordance with recommendations from the [place] [employer]. Blood glucoses above 200 mg/dl [...] incarceration. Per chart, patient initially presented to [facility] 07/02 via EMS for altered mental [...] I did not find any documentation from oxide furnace tender follow up. Diabetes History: Duration of Diabetes: [...] Anxiety Asthma Depression Diabetes mellitus type I [place] DM type 1 (diabetes mellitus, type 1) [place] Genital herpes GERD (gastroesophageal reflux disease) Herpes [...] (0.1 mEq/mL premix), 10 mEq, intravenous, PRN, Ronla Logan MD prochlorperazine (COMPAZINE) injection 5 mg, [...] >16.5 (H) 06/07/2021 Catrina Longo PA-C 07/03/23 [id number] documented in this encounter [facility] 07-03-2023 Plan of care note Problem: Pain Goal: Patient goal is pain score less than 4, able to rest, and participant in treatment plan as appropriate Description: INTERVENTIONS: 1. Encourage patient or legal wholesale representative to report early pain and ask [...] per policy 9. Teach patient or legal wholesale representative interventions for comforting Outcome: Progressing Note: [...] at the bedside 7. Instruct patient/ patient wholesale representative about use of safety devices 8. Include patient/ patient wholesale representative in decisions related to safety Outcome: [...] hygiene technique 7. Identify and instruct patient/patient wholesale representative in use of appropriate isolation precautions for identified infection/symptoms 8. Provide and discuss with patient/patient wholesale representative on educational MDRO sheet 9. Encourage and monitor nutritional status daily and consult dye winch operator if indicated 10. Implement neutropenic guidelines as needed 11. Review exposure to history of communicable disease and recent travel history on admission 12. Encourage annual influenza vaccine 13. Encourage pneumonia vaccine Outcome: Progressing Note: Evaluation of progress towards goal: Pt is afebrile at this time. CBC being monitored Problem: Knowledge Deficit Goal: Patient/patient wholesale representative demonstrates understanding of disease process, treatment [...] Score of =/> 25 or indicated by [facility] Assessment Goal: Patient should be free from fall Description: Interventions: 1. [place] to environment 2. Hourly rounds addressing the [...] non-skid footwear 11. Teach patient and patient wholesale representative to maintain environment for safety and [...] (cane, walker) within reach 19. Request patient wholesale representative bring adaptive equipment/mobility aids from home or obtain and provide as needed 20. Consult pharmacy regarding effects of med's affecting mobility, cognition, and alternatives 21. Obtain physician order for PT if risk factors associated with mobility are present 22. Obtain physician order for OT as appropriate 23. Utilize diversional activities 24. Educate patient and patient wholesale representative how to maintain a safe environment during visitation times (notify nurse prior to leaving bedside) 25. Consider appropriateness of medical or non-medical support assistant 26. Set up voiding schedule as appropriate [...] discharge planning process 5. Communicate referral to press brake operator as appropriate 6. Communicate referral to dye winch operator as appropriate 7. Collaborate with case management/criminal justice social worker for discharge needs Outcome: Progressing [...] place. Skin is kept clean and dry. [facility] 07-02-2023 Plan of care note Problem: Pain Goal: Patient goal is pain score less than 4, able to rest, and participant in treatment plan as appropriate Description: INTERVENTIONS: 1. Encourage patient or legal wholesale representative to report early pain and ask [...] per policy 9. Teach patient or legal wholesale representative interventions for comforting Outcome: Progressing Note: [...] at the bedside 7. Instruct patient/ patient wholesale representative about use of safety devices 8. Include patient/ patient wholesale representative in decisions related to safety Outcome: [...] hygiene technique 7. Identify and instruct patient/patient wholesale representative in use of appropriate isolation precautions for identified infection/symptoms 8. Provide and discuss with patient/patient wholesale representative on educational MDRO sheet 9. Encourage and monitor nutritional status daily and consult dye winch operator if indicated 10. Implement neutropenic guidelines as needed 11. Review exposure to history of communicable disease and recent travel history on admission 12. Encourage annual influenza vaccine 13. Encourage pneumonia vaccine Outcome: Progressing Note: Evaluation of progress towards goal: Patient is afebrile at present time. Will monitor labs and vital signs. Problem: Knowledge Deficit Goal: Patient/patient wholesale representative demonstrates understanding of disease process, treatment [...] Score of =/> 25 or indicated by [facility] Assessment Goal: Patient should be free from fall Description: Interventions: 1. [place] to environment 2. Hourly rounds addressing the [...] non-skid footwear 11. Teach patient and patient wholesale representative to maintain environment for safety and [...] (cane, walker) within reach 19. Request patient wholesale representative bring adaptive equipment/mobility aids from home or obtain and provide as needed 20. Consult pharmacy regarding effects of med's affecting mobility, cognition, and alternatives 21. Obtain physician order for PT if risk factors associated with mobility are present 22. Obtain physician order for OT as appropriate 23. Utilize diversional activities 24. Educate patient and patient wholesale representative how to maintain a safe environment during visitation times (notify nurse prior to leaving bedside) 25. Consider appropriateness of medical or non-medical support assistant 26. Set up voiding schedule as appropriate [...] turned every 2 hours with pillow support. [facility] 07[facility]02[facility] History and physical note Images from the original note were not included. Adult ICU History & Physical Patient - Douglas Cordova Age - 28 y[facility]. [facility] 1995 [id number] Date of Admission - 07/02/2023 4:55 PM Chief Complaint Altered mental status, nausea vomititng, symptomatic hyperglycemia History of Present Illness Douglas Cordova is a 28 y.o. female with a past medical history of uncontrolled T1DM d/t insulin noncompliance, numerous DKA exacerbations requiring multiple ICU admissions, diabetic neuropathy, psoriasis, adhd, hx of methamphetamine use, recent incarceration. Patient initially presented to [facility] 07/02 via EMS for altered mental [...] 250cc/hr. Failed to improve requiring transfer to [facility] for higher acuity care in ICU. Upon [...] Anxiety Asthma Depression Diabetes mellitus type I ([facility] DM type 1 (diabetes mellitus, type 1) ([facility]) Genital herpes GERD (gastroesophageal reflux disease) Herpes [...] 1 ml (10 units) per carb 07/09/18 aMxine Baez MD ondansetron ODT (ZOFRAN ODT) 4 mg disintegrating tablet Dissolve 1 tablet (4 mg total) on tongue every 8 (eight) hours as needed for nausea or vomiting. 06/18/22 JONANA Barker pantoprazole (PROTONIX) 20 mg EC tablet [...] progress note was completed using a voice paper rewinder operator system. Every effort was made to ensure accuracy. However, inadvertent computerized paper rewinder operator errors may be present. Ronal Logan MD PGY1 IM Resident [facility] Internal Medicine 07/02/23 5:26 PM Associated attestation - Letty Yee MD - 07/03/2023 9:04 PM EST I have seen and examined the patient on rounds with the resident/fellow. I repeated the brown components of the exam. I confirm the note and agree with the assessment and plan except as stated below: Letty Yee MD [facility] Physicians Critical Care Medicine [facility] 07-02-2023 History and physical note Images from the original note were not included. Adult ICU History & Physical Patient - Douglas Cordova Age - 28 y.o. [facility] 1995 [id number] Date of Admission - 07/02/2023 4:55 PM Chief Complaint Altered mental status, nausea vomititng, symptomatic hyperglycemia History of Present Illness Douglas Cordova is a 28 y.o. female with a past medical history of uncontrolled T1DM d/t insulin noncompliance, numerous DKA exacerbations requiring multiple ICU admissions, diabetic neuropathy, psoriasis, adhd, hx of methamphetamine use, recent incarceration. Patient initially presented to [facility] 07/02 via EMS for altered mental [...] 250cc/hr. Failed to improve requiring transfer to [facility] for higher acuity care in ICU. Upon [...] Anxiety Asthma Depression Diabetes mellitus type I ([facility]) DM type 1 (diabetes mellitus, type 1) [place] Genital herpes GERD (gastroesophageal reflux disease) Herpes [...] progress note was completed using a voice paper rewinder operator system. Every effort was made to ensure accuracy. However, inadvertent computerized paper rewinder operator errors may be present. Ronal Logan MD PGY1 IM Resident [facility] Internal Medicine 07/02/23 5:26 PM Associated attestation - Letty Yee MD - 07/03/2023 9:04 PM EST I have seen and examined the patient on rounds with the resident/fellow. I repeated the brown components of the exam. I confirm the note and agree with the assessment and plan except as stated below: Letty Yee MD [facility] Physicians Critical Care Medicine documented in this encounter [facility] 06-16-2023 Note [phone] [id number] Note Education Materials Endocrinology Hyperglycemia Hyperglycemia [...] instructions at home: General instructions ? Take tanb-vpw-hbesvoc and prescription medicines only as told by [...] have diabetes. Where to find more information [place] [employer]: www.diabetes.org Contact a doctor if: [...] or act (ment (more content not included)... [facility] Evaluation note Diagnosis DKA (diabetic ketoacidosis) ([facility] Primary Type II or unspecified type diabetes mellitus with ketoacidosis, not stated as uncontrolled Diabetic ketoacidosis without coma associated with type 1 diabetes mellitus ([facility]) Type 1 diabetes mellitus with ketoacidosis without coma ([facility]) documented in this encounter [facility] Summary Purpose Family History No Family History Records FoundNo Family History Records FoundNo Family History Records FoundNo Family History Records FoundNo Family History Records FoundNo Family History Records FoundNo Family History Records FoundNo Family History Records Found Advance Directives No Advanced Directives Records FoundDocuments on File Type Date Recorded 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 Advance Directives and Livin g Will 06/07/2020 12:33 PM Latest Code Status on File Code Status Date Activated Date Inactivated Comments Full Code 06/07/2020 11:23 AM 06/10/2020 7:35 PM Full Code 06/07/2020 11:21 AM 06/07/2020 11:23 AM Latest Code Status on File Code Status Date Activated Date Inactivated Comments Full Code 07/29/2020 6:56 PM Documents on File Type Date Recorded 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 female patient of No primary care provider on file. with history of DM1 presented with hyperglycemia. DIAGNOSES: DKA from [facility], non compliance with her home insulin -DKA pathway initiated. -Resolved -Transition to Lantus, and Humalog -A1c1 7.8 -Patient seen by press brake operator -Stable for discharge home although her sugars [...] No acute process otherwise or pleural effusions. [employer] Workstation ID: [id number] Procedures No orders of the defined types were placed in this encounter. Consults Procedures Inpatient consult to Fact Checker Inpatient consult to Dietitian Inpatient consult to Care Management Other Tests No orders of the defined types were placed in this encounter. Allergies Penicillins and Shellfish derived Discharge Diet Diet Special; Diabetic; Carbohydrate Consistent 60g/meal (2700-5608 kCal equivalent) Disposition Discharge Medications Medication List [...] Medications These medications were sent to [facility] [address] [id number] insulin glargine 100 unit/mL injection insulin lispro 100 unit/mL injection Physician(s) Family: Physician No, Phone: None, Address: [facility] Follow Up: PCP Follow up in [...] Diabetic Diet please contact Central Scheduling at [phone] to set up an outpatient appointment with a Registered Dietitian. Please check out [place] [employer] at www.diabetes.org for more resources. * Attachments The following attachments cannot be sent through Care Everywhere. * Carbohydrates: General Info (Colombian) * Diabetes: Counting Carbohydrates (Colombian) * Low Carbohydrate Foods: General Info (Colombian) * Diabetic Ketoacidosis (DKA) (Colombian) documented in this encounter History of Present [...] with hyperglycemia. Impression and Plan: DKA from [facility], non compliance with her home insulin, resolved. [...] to follow up Atelectasis CXR reviewed IS [employer] activity HypoPO4 Replacement ordered HypoK [...] with discharge needs and insulin. Dietary and personal development educator has already been consulted. 0900: Spoke with Shu Barahona, press brake operator and she is going in to speak [...] family are not able to come from [place], [place] to visit her due to the [...] for Future Visits: Pt aware to contact Catalyst Supervisor as needed, PRN Visit 1-2 times every 7 days or consult Pastoral Care PRN. Rev. Shannon Parekh MDiv. Staff [facility] Contact * Binh Virk MD - 06/08/2020 9:36 AM EST DAILY PROGRESS NOTE Douglas Cordova is a 25 y.o. female patient of No primary care provider on file. with history of DM1 presented with hyperglycemia. Impression and Plan: DKA from [facility], non compliance with her home insulin, improving [...] Parks RN - 06/07/2020 1:44 PM EST 1343 Patient moaning in pain and complaining of being hot after eating a full liquid lunch. zofran given with lunch. Patient is not a good historian or does not offer much information when asked. Per report from [facility] in [place] stated patient stopped taking her insulin 3 [...] Jin RN - 08/02/2020 12:31 AM EST Biomedical Instrument Technician perfect serve message Internal Medicine to notify primary did elope and leave hospital. Alsonotified patient did leave jewelry in room and will send to security. * Felicity Jin RN - 08/01/2020 10:25 PM EST Biomedical Instrument Technician called Nursing Personal Clothing Laundry Aide Pamela to notify patient left unit at 2030 and has not return. Patient did sign policy on patient's remaining of unit form. Also notified patient did state to data analyst report writer shewas not leaving AMA. Patient's jewelry still present in room. Pamela states to wait till midnight to remove patient off unit. * Felicity Jin RN - 08/01/2020 8:30 PM EST Patient requested to walk off the unit.. Biomedical Instrument Technician notified patient policy on patients remaining on unit. Patient states she is not leaving AMA and does disregard warnings against leaving the unit. Patient did sign policy on patient's remaining on their unit form and witness by data analyst report writer and place in alexander ent's chart. * Damien Olivarez MD - 08/01/2020 7:06 PM EST [facility] Department of Internal Medicine - Staff Internal Medicine Service ICU PATIENT TRANSFER NOTE Patient: Douglas Sousa Date of : 1995 Acct: [id number] Admit date: 07/29/2020 Code Status:- Full code [...] at goal (HCC) [E10.10] and presented to [facility] with C/O abdominal pain, nausea and vomiting and was found to be in DKA. Patient was started on DKA protocol, on IV fluids and received 1 dose of Rocephin and azithromycin due to elevated white count. Patient was transferred to [facility] for further evaluation and management. [...] issues concerning noncompliance, patient might benefit from social service worker consult. Depression: History of depression in the past, stopped taking antidepressant by herself. Recommend psych eval. DVT prophylaxis: Lovenox 40 mg. PT/OT/SW: Consulted Discharge planning: production operations manager consulted Damien Olivarez MD Department of Internal Medicine [facility] [place] 08/01/2020, 7:06 PM Associated attestation - Naomy [...] at home, advised to follow-up with her oxide furnace tender/PCP Advised to be compliant with medical recommendations Naomy Morse MD Attending Physician, Internal Medicine Service Internal Medicine Residency Program 08/01/2020, 10:21 PM * Vikki Weber MD - 08/01/2020 11:35 AM EST Critical care team - Resident sign-out to medicine service Date and time: 08/01/2020 11:35 AM Patient's name: Douglas Sousa Patient's account/billing number: [id number] Patient's Date of : 1995 Age: 25 [...] floor. Vikki Weber MD Internal Medicine Resident [facility] 08/01/2020 11:35 AM * Edi Latham MD - 08/01/2020 11:29 AM EST Critical Care Team - Daily Progress Note Date and time: 08/01/2020 11:29 AM Patient's name: Douglas Sousa Patient's account/billing number: [id number] Patient's Date of : 1995 Age: 25 [...] Date 08/01/20 0000 - 08/01/20 2359 Shift 9350-5395 8550-5005 2595-3674 24 Hour Total INTAKE P.O.(mL/kg/hr) 400(0.8) 500 [...] HCO3 12.9 Lab Results Component Value Date SJK6THC 14 07/30/2020 FIO2 35.0 07/30/2020 Lactic Acid: [...] No results for input(s): LABIRON, TIBC, FERRITIN, [id number], FOLATE, OCCULTBLD in the last 72 hours. [...] access Vikki Weber MD Internal Medicine Resident [facility] 08/01/2020 11:34 AM Attending Physician Statement I [...] this chart was generated using voice recognition [employer] dictation software. Although every effort was made to ensure the accuracy of this automated paper rewinder operator, some errors in paper rewinder operator may have occurred. * Edi Latham MD - 07/31/2020 8:37 AM EST Critical Care Team - Daily Progress Note Date and time: 07/31/2020 8:43 AM Patient's name: Douglas Sousa Patient's account/billing number: [id number] Patient's Date of : 1995 Age: 25 [...] Date 07/31/20 0000 - 07/31/20 2359 Shift 4905-6169 3444-0480 5298-8593 24 Hour Total INTAKE I.V.(mL/kg) 1058(18.5) 1062.4(18.6) [...] HCO3 12.9 Lab Results Component Value Date PYL5HDP 14 07/30/2020 FIO2 35.0 07/30/2020 Lactic Acid: [...] No results for input(s): LABIRON, TIBC, FERRITIN, [id number], FOLATE, OCCULTBLD in the last 72 hours. [...] M.D. Department of Internal Medicine/ Critical care [facility]) 07/31/2020, 8:43 AM Attending Physician Statement I [...] this chart was generated using voice recognition [employer] dictation software. Although every effort was made to ensure the accuracy of this automated paper rewinder operator, some errors in paper rewinder operator may have occurred. * Chela Vazquez MD - 07/30/2020 9:09 AM EST Critical Care Team - Daily Progress Note Date and time: 07/30/2020 9:09 AM Patient's name: Douglas Sousa Patient's account/billing number: [id number] Patient's Date of : 1995 Age: 25 [...] Date 07/30/20 0000 - 07/30/20 2359 Shift 0969-4041 5998-3267 8304-8755 24 Hour Total INTAKE I.V.(mL/kg) 2655(49.6) 2655(49.6) [...] HCO3 12.9 Lab Results Component Value Date RQH2SNP 14 07/30/2020 FIO2 35.0 07/30/2020 Lactic Acid: [...] No results for input(s): LABIRON, TIBC, FERRITIN, [id number], FOLATE, OCCULTBLD in the last 72 hours. [...] M.D. Department of Internal Medicine/ Critical care [facility]) 07/30/2020, 9:09 AM Associated attestation - [...] Diagnosis DKA, type 1, not at goal ([facility]) Type I (juvenile type) diabetes mellitus with ketoacidosis, uncontrolled Reason for Referral Specialty Diagnoses / Procedures Referred By Contac t Referred To Contact Procedures Discharge Follow-Up Ronal Logan MD [address] [place] [address], [address] [place] [address] Referral ID Status Reason Start Date Expiration Date V isits Requested Visits Authorized [id number] Pending Review 07/04/2023 07/03/2024 1 1 Specialty Diagnoses / Procedures Referred By Contac t Referred To Contact Diagnoses Diabetic ketoacidosis without coma associated with type 1 diabetes mellitus ([facility]) Procedures Follow-up with primary care provider Ronal Logan MD [address] [place] [address], [address] [place] [address] Referral ID Status Reason Start Date Expiration Date V isits Requested Visits Authorized [id number] Pending Review 07/04/2023 07/03/2024 1 1 Specialty Diagnoses / Procedures Referred By Contac t Referred To Contact Procedures No dressing needed Ronal Logan MD [address] [place] [address], [address] [place], [place] [id number] Referral ID Status Reason Start Date Expiration Date V isits Requested Visits Authorized [id number] Pending Review 07/04/2023 07/03/2024 1 1 Specialty Diagnoses / Procedures Referred By Contac t Referred To Contact Procedures Adult diet Ronal Logan MD [address] [place] [address], [address] [place], [place] [id number] Referral ID Status Reason Start Date Expiration Date V isits Requested Visits Authorized [id number] Pending Review 07/04/2023 07/03/2024 1 1 Additional Source Comments INFORMATION SOURCE (unrecogn ized section and content) DATE CREATED AUTHOR 07/08/2018 [facility] DATE CREATED AUTHOR AUTHOR'S ORGANIZ ATION 06/14/2020 [facility] DATE CREATED AUTHOR AUTHOR'S ORGANIZ ATION 08/02/2020 [facility] DATE CREATED AUTHOR AUTHOR'S ORGANIZ ATION 09/18/2022 [facility] DATE CREATED AUTHOR AUTHOR'S ORGANIZ ATION 04/02/2023 [facility] DATE CREATED AUTHOR AUTHOR'S ORGANIZ ATION 07/03/2023 [facility] DATE CREATED AUTHOR AUTHOR'S ORGANIZ ATION 07/06/2023 [facility] DATE CREATED AUTHOR AUTHOR'S ORGANIZ ATION 07/13/2023 [facility] Reason for Visit (unrecogniz ed section and content) Status Reason Specialty Diagnoses / Procedures Referre d By Contact Referred To Contact Diagnoses DKA, type 1, not at goal (HCC) DKA Status Reason Specialty Diagnoses / Procedures Referre d By Contact Referred To Contact Diagnoses DKA, type 1, not at goal (HCC) DKA Stan Perez MD [address] [place] [id number] [facility] Specialty Diagnoses / Procedures Referred By Contac t Referred To Contact Diagnoses DKA (diabetic ketoacidosis) ([facility]) Tachycardia 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 (Family); System, Provider Not In (Referring) Perpetual Assessment: Douglas Cordova is a 25 y.o. female patient of No primary care provider on file. with history of DM1 presented with hyperglycemia. Impression and Plan: DKA from [facility], non compliance with her home insulin On [...] much information when asked. Per report from [facility] in [place] stated patient stopped taking her insulin 3 [...] Cordova Date of : 1995 Sex: Female Operations Systems Specialist f2f with patient. Patient reports she is linked with an oxide furnace tender and a primary care physician. She will speak with them about changing insulin if needed. Operations Systems Specialist did speak with patient about ride home, explained she can have ambulette transportation but has to have discharge orders in. Patient denied other needs. Associated Order(s): IP CONSULT TO WWE WRESTLER Reviewed lab results: Blood sugar trends: 103-517 [...] care of her. 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 Medications: Levemir 12 units [...] She states she has an appointment in [facility]. 2. Patient verbalizes that she will take [...] type 1. Pt found in DKA from [facility] d/t non-compliance with her home insulin, hypoPO4, [...] 0.9 % Lisa Moore RD, LD Office: [phone] documented in this encounter Plan of Care [...] Goal: Knowledge of Enviroment Outcome: Partially Met [id number] goggles gloves Pt not wearing a [...] Comment: bs 149, order placed by PA oxide furnace tender) insulin glargine (LANTUS, SEMGLEE) injection pen 20 [...] Leigh RN)2318 (New Bag - Provider: Evelyn Rohdes RN) 0312 (New Bag - Provider: Evelyn [...] to dextrose-containing formulation, DO NOT change to tim-tnlnlvhd-kmkmjfxxam IV fluid if blood glucose exceeds 250 [...] Care Teams (unrecognized sec tion and content) Tetryl Screen Operator Relationship Specialty Start Date End Date Arcadio Iglesias MD [address] [place] [address] PCP - General Family Medicine 06/10/23 FOR [...] BE BASED ON THE PRIMARY CLINICAL RECORDS. [employer] provides no warranty or guarantee of the accuracy or completeness of information in this document.
--- OUTSIDE RECORDS SUMMARY | 2023-07-14 09:03 | XMS_ITS | CCD ---
Author Name Unknown Address [address] [place] [address] Organization [facility] Care Team Providers Care Core Dipper Name Role Phone PHYSICIAN, DEFAULT Unavailable Unavailable [...] Unavailable Arcadio Iglesias MD Primary Care Provider [phone] LETTY YEE Admitting Unavailable LETTY YEE Attending [...] to adverse reactions to drug 3 Anaphylaxis [facility] (6 sources) Shellfish; Translations: [SHELLFISH DERIVED] Propensity to adverse reactions to drug 0 [facility] (3 sources) Penicillin; Translations: [penicillin] Drug Allergy [facility] (4 sources) Shellfish; Translations: [shellfish] Drug allergy (disorder) 4 [facility] (1 source) Shellfish-Derive d Products Propensity to adverse reactions to drug 1 [place] (3 sources) Shellfish; Translations: [SHELLFISH CONTAINING PRODUCTS] Propensity to adverse reactions to drug 7 Anaphylaxis [facility] Medications Current Medications Medication Drug Class(es) Dates Sig (Normalized) Sig (Original) [id number] 200 actuat albuterol 0.09 mg/actuat metered dose [...] 0 Active take 1 capsule by mo [facility] once daily in the morning amphetamine-dextroamphetamine XR [...] 1215 DO NOT CRUSH OR CHEW. pantoprazole (RI OTONIX) 20 mg EC tablet Take 30 [...] 04-03-2020 03-01-2021 Chronic Other aftercare (1 source) prison (current) use of insulin; Translations: [HALFWAY CURRENT USE OF INSULIN] Onset: 09-17-2022 Episodic Other aftercare (1 source) Other snf (current) drug therapy; Translations: [[place] [employer] CURRENT DRUG THERAPY] Onset: 09-17-2022 Episodic Other [...] gap [Moles/Vol] 7 mmol/L Normal 5-15 [facility] Comment on above: Performed By: #### 6 873-4, 60341-5, 99066-5, CMP, 90963-0, HA1C, CBCA #### [facility] ([id number]) [address] [place] [address] Calcium [Mass/Vol] 7.8 mg/dL Low 8.5-10.5 [facility] Comment on above: Performed By: #### 6 873-4, 74040-7, 74956-1, CMP, 54490-8, HA1C, CBCA #### [facility] ([id number]) [address], [address] [place] [address] Chloride [Moles/Vol] 98 mmol/L Normal 98-109 [facility] Comment on above: Performed By: #### 6 873-4, 12847-0, 34152-3, CMP, 24982-8, HA1C, CBCA #### [facility] ([id number]) [address], [address] [place] [address] CO2 [Moles/Vol] 27 mmol/L Normal 22-32 [facility] Comment on above: Performed By: #### 6 873-4, 58118-0, 02178-8, CMP, 33043-7, HA1C, CBCA #### [facility] ([id number]) [address], [address] [place] [address] Creatinine [Mass/Vol] 0.50 mg/dL Normal 0.40-1.00 [facility] Comment on above: Result Comment: METH OD TRACEABLE TO IDMS STANDARD Performed By: #### 6 873-4, 73778-0, 67377-8, CMP, 35806-9, HA1C, CBCA #### [facility] ([id number]) [address], [address] [place] [address] eGFR (CKD-EPI) NON-RACE DEPENDENT >90 Normal >59 [facility] Comment on above: Result Comment: Reported eGFR is based on the CKD-EPI 2020 equation that does not use a race coefficient. Performed By: #### 6 873-4, 89103-7, 51731-7, CMP, 82602-7, HA1C, CBCA #### [facility] ([id number]) [address], [address] [place] [address] Glucose [Mass/Vol] 290 mg/dL High 65-99 [facility] Comment on above: Performed By: #### 6 873-4, 30791-3, 26869-9, CMP, 78803-9, HA1C, CBCA #### [facility] ([id number]) [address], [address] [place] [address] Potassium [Moles/Vol] 3.7 mmol/L Normal 3.5-5.0 [facility] Comment on above: Performed By: #### 6 873-4, 85452-6, 58715-4, CMP, 65782-6, HA1C, CBCA #### [facility] ([id number]) [address], [address] [place] [address] Sodium [Moles/Vol] 132 mmol/L Low 134-146 [facility] Comment on above: Performed By: #### 6 873-4, 13924-4, , CMP, 72152-4, HA1C, CBCA #### [facility] ([id number]) [address], [address] [place] [address] Urea nitrogen [Mass/Vol] 2 mg/dL Low 5-23 [facility] Comment on above: Performed By: #### 6 873-4, 89118-4, , CMP, 98375-5, HA1C, CBCA #### [facility] ([id number]) [address], [address] [place] [address] Beta hydroxybutyrate [Moles/ Vol]on 07-04-2023 BetaHydroxybutyrate 0.38 mmol/L High 0.02-0.27 [facility] Comment on above: Performed By: #### 6 873-4, 88937-2, 09028-4, CMP, 06034-1, HA1C, CBCA #### [facility] ([id number]) [address], [address] [place] [address] BetaHydroxybutyrate <0.10 Normal 0.02-0.27 [facility] Comment on above: Performed By: #### 6 873-4, 46298-0, 25494-6, CMP, 72509-2, HA1C, CBCA #### [facility] ([id number]) [address], [address] [place] [address] BetaHydroxybutyrateon 2023 Beta hydroxybutyrate [Moles/Vol] mmol/L 0.02 - 0.27 mmol/L [facility] CBC AND AUTO DIFFon 07-04-19 ABSOLUTE BASOPHIL 0.0 X10E9/L Normal 0.0-0.2 [facility] Comment on above: Performed By: #### 6 873-4, 18273-0, 13457-5, CMP, 43849-2, HA1C, CBCA #### [facility] ([id number]) [address], [address] [place] [address] ABSOLUTE NEUTROPHIL 5.2 X10E9/L Normal 1.5-6.6 [facility] Comment on above: Performed By: #### 6 873-4, 17834-1, 43275-6, CMP, 18276-9, HA1C, CBCA #### [facility] ([id number]) [address] [address] Basophils/100 WBC (Bld) 0.7 % Normal P [facility] Comment on above: Performed By: #### 6 873-4, 24584-4, 38976-9, CMP, 64932-2, HA1C, CBCA #### [facility] ([id number]) [address], [address] [place] [address] Eosinophils (Bld) [#/Vol] 0.0 10*3/uL Normal 0.0-0.4 [facility] Comment on above: Performed By: #### 6 873-4, 56765-7, 97535-9, CMP, 62768-5, HA1C, CBCA #### [facility] ([id number]) [address], [address] [place] [address] Eosinophils/100 WBC (Bld) 0.6 % Normal [facility] Comment on above: Performed By: #### 6 873-4, 08714-7, 20162-7, CMP, 94176-6, HA1C, CBCA #### [facility] ([id number]) [address], [address] [place] [address] Erythrocyte distribution width (RBC) [Ratio] 15.3 % High 11.5-15.0 [facility] Comment on above: Performed By: #### 6 873-4, 94845-3, 08428-8, CMP, 98873-9, HA1C, CBCA #### [facility] ([id number]) [address] [address] [address] [place] [address] Hematocrit (Bld) [Volume fraction] 36.1 % Normal 35-47 [facility] Comment on above: Performed By: #### 6 873-4, 91651-9, 02593-2, CMP, 59592-5, HA1C, CBCA #### [facility] ([id number]) [address], [facility] [address] [place] [address] Hemoglobin (Bld) [Mass/Vol] 11.9 g/dL Normal 11.7-15.5 [facility] Comment on above: Performed By: #### 6 873-4, 32882-5, 59892-6, CMP, 77990-3, HA1C, CBCA #### [facility] ([id number]) [address], [address] [place] [address] Lymphocytes (Bld) [#/Vol] 1.5 10*3/uL Normal 1.0-3.5 [facility] Comment on above: Performed By: #### 6 873-4, 08193-5, 79275-5, CMP, 29796-2, HA1C, CBCA #### [facility] ([id number]) [address], [address] [place] [address] Lymphocytes/100 WBC (Bld) 21.1 % Normal [facility] Comment on above: Performed By: #### 6 873-4, 04001-4, 21751-8, CMP, 11723-8, HA1C, CBCA #### [facility] ([id number]) [address], [address] [place] [address] MCH (RBC) [Entitic mass] 25.2 pg Low 27-34 [facility] Comment on above: Performed By: #### 6 873-4, 02930-6, 57050-2, CMP, 16504-7, HA1C, CBCA #### [facility] ([id number]) [address], [facility] [address] [place] [address] MCHC (RBC) [Mass/Vol] 33.0 g/dL Normal 32-36 [facility] Comment on above: Performed By: #### 6 873-4, 01048-5, 65963-7, CMP, 55988-9, HA1C, CBCA #### [facility] ([id number]) [address], [address] [place] [address] MCV (RBC) [Entitic vol] 76 fL Low 80-100 P [facility] Comment on above: Performed By: #### 6 873-4, 88226-2, 02170-9, CMP, 22119-2, HA1C, CBCA #### [facility] ([id number]) [address], [address] [place] [address] Monocytes (Bld) [#/Vol] 0.5 10*3/uL Normal 0-0.9 [facility] Comment on above: Performed By: #### 6 873-4, 07075-3, 81621-8, CMP, 86810-6, HA1C, CBCA #### [facility] ([id number]) [address], [address] [place] [address] Monocytes/100 WBC (Bld) 6.7 % Normal [facility] Comment on above: Performed By: #### 6 873-4, 32296-7, 34606-8, CMP, 97755-1, HA1C, CBCA #### [facility] ([id number]) [address], [address] [place] [address] Neutrophils/100 WBC (Bld) 70.9 % Normal [facility] Comment on above: Performed By: #### 6 873-4, 80885-7, 23609-2, CMP, 98307-0, HA1C, CBCA #### [facility] ([id number]) [address], [facility] [address] [place] [address] Platelet mean volume (Bld) [Entitic vol] 7.8 fL Normal 7-12 [facility] Comment on above: Performed By: #### 6 873-4, 21751-9, 03421-2, CMP, 33751-9, HA1C, CBCA #### [facility] ([id number]) [address], [address] [place] [address] Platelets (Bld) [#/Vol] 221 10*3/uL Normal 150-450 [facility] Comment on above: Performed By: #### 6 873-4, 35541-2, 68749-2, CMP, 93323-0, HA1C, CBCA #### [facility] ([id number]) [address], [address] [place] [address] RBC COUNT 4.72 X10E12/L Normal 3.80-5.20 [facility] Comment on above: Performed By: #### 6 873-4, 19707-4, 04222-9, CMP, 93363-6, HA1C, CBCA #### [facility] ([id number]) [address], [address] [place] [address] WBC (Bld) [#/Vol] 7.3 10*3/uL Normal 4.0-11.0 [facility] Comment on above: Performed By: #### 6 873-4, 93206-4, 52573-0, CMP, 99571-6, HA1C, CBCA #### [facility] ([id number]) [address], [address] [place] [address] ABSOLUTE BASOPHIL 0.0 X10E9/L Normal 0.0-0.2 [facility] Comment on above: Performed By: #### 6 873-4, 66017-3, 36968-4, CMP, 59330-6, HA1C, CBCA #### [facility] ([id number]) [address], [address] [place] [address] ABSOLUTE NEUTROPHIL 5.2 X10E9/L Normal 1.5-6.6 [facility] Comment on above: Performed By: #### 6 873-4, 76517-5, 40202-0, CMP, 32150-8, HA1C, CBCA #### [facility] ([id number]) [address], [address] [place] [address] Basophils/100 WBC (Bld) 0.3 % Normal [facility] Comment on above: Performed By: #### 6 873-4, 44829-9, 03035-9, CMP, 06147-0, HA1C, CBCA #### [facility] ([id number]) [address], [address] [place] [address] Eosinophils (Bld) [#/Vol] 0.0 10*3/uL Normal 0.0-0.4 [facility] Comment on above: Performed By: #### 6 873-4, 64548-5, 21141-1, CMP, 86372-9, HA1C, CBCA #### [facility] ([id number]) [address], [address] [place] [address] Eosinophils/100 WBC (Bld) 0.2 % Normal [facility] Comment on above: Performed By: #### 6 873-4, 08050-2, 92910-5, CMP, 24269-7, HA1C, CBCA #### [facility] ([id number]) [address] [address] Erythrocyte distribution width (RBC) [Ratio] 15.4 % High 11.5-15.0 [facility] Comment on above: Performed By: #### 6 873-4, 70042-0, 53367-9, CMP, 22432-4, HA1C, CBCA #### [facility] ([id number]) [address] [address] Hematocrit (Bld) [Volume fraction] 30.9 % Low 35-47 [facility] Comment on above: Performed By: #### 6 873-4, 07978-4, 90816-7, CMP, 20434-3, HA1C, CBCA #### [facility] ([id number]) [address] [address] Hemoglobin (Bld) [Mass/Vol] 10.4 g/dL Low 11.7-15.5 [facility] Comment on above: Performed By: #### 6 873-4, 61145-3, 44246-4, CMP, 66960-5, HA1C, CBCA #### [facility] ([id number]) [address] [address] Lymphocytes (Bld) [#/Vol] 1.7 10*3/uL Normal 1.0-3.5 [facility] Comment on above: Performed By: #### 6 873-4, 10833-9, 58753-0, CMP, 11844-4, HA1C, CBCA #### [facility] ([id number]) [address] [address] Lymphocytes/100 WBC (Bld) 22.6 % Normal [facility] Comment on above: Performed By: #### 6 873-4, 98032-3, 78409-2, CMP, 16277-3, HA1C, CBCA #### [facility] ([id number]) [address], [address] [place] [address] MCH (RBC) [Entitic mass] 25.8 pg Low 27-34 [facility] Comment on above: Performed By: #### 6 873-4, 56272-3, 74279-4, CMP, 39084-2, HA1C, CBCA #### [facility] ([id number]) [address], [facility] [address] [place] [address] MCHC (RBC) [Mass/Vol] 33.7 g/dL Normal 32-36 [facility] Comment on above: Performed By: #### 6 873-4, 73671-2, 70742-5, CMP, 45046-1, HA1C, CBCA #### [facility] ([id number]) [address], [address] [place] [address] MCV (RBC) [Entitic vol] 77 fL Low 80-100 P [facility] Comment on above: Performed By: #### 6 873-4, 62985-3, 31826-4, CMP, 02888-0, HA1C, CBCA #### [facility] ([id number]) [address], [address] [place] [address] Monocytes (Bld) [#/Vol] 0.6 10*3/uL Normal 0-0.9 [facility] Comment on above: Performed By: #### 6 873-4, 44318-9, 09927-4, CMP, 78944-8, HA1C, CBCA #### [facility] ([id number]) [address], [address] [place] [address] Monocytes/100 WBC (Bld) 7.9 % Normal P [facility] Comment on above: Performed By: #### 6 873-4, 96306-8, 39715-8, CMP, 98778-2, HA1C, CBCA #### [facility] ([id number]) [address], [address] [place] [address] Neutrophils/100 WBC (Bld) 69.0 % Normal [facility] Comment on above: Performed By: #### 6 873-4, 31544-6, 94435-9, CMP, 56880-9, HA1C, CBCA #### [facility] ([id number]) [address], [facility] [address] [place] [address] Platelet mean volume (Bld) [Entitic vol] 7.6 fL Normal 7-12 [facility] Comment on above: Performed By: #### 6 873-4, 14534-5, 10873-4, CMP, 44169-3, HA1C, CBCA #### [facility] ([id number]) [address], [address] [place] [address] Platelets (Bld) [#/Vol] 221 10*3/uL Normal 150-450 [facility] Comment on above: Performed By: #### 6 873-4, 81320-0, 43750-3, CMP, 85568-2, HA1C, CBCA #### [facility] ([id number]) [address], [address] [place] [address] RBC COUNT 4.03 X10E12/L Normal 3.80-5.20 [facility] Comment on above: Performed By: #### 6 873-4, 07832-2, 82008-3, CMP, 78884-6, HA1C, CBCA #### [facility] ([id number]) [address], [address] [place] [address] WBC (Bld) [#/Vol] 7.6 10*3/uL Normal 4.0-11.0 [facility] Comment on above: Performed By: #### 6 873-4, 99787-2, 58729-6, CMP, 24783-7, HA1C, CBCA #### [facility] ([id number]) [address] [facility], [address] [place] [address] CBC auto differentialon Basophils (Bld) [#/Vol] 0.0 10*3/uL [facility] Basophils/100 WBC (Bld) 0.3 % P [facility] Eosinophils (Bld) [#/Vol] 0.0 10*3/uL [...] Interpretation and review of laboratory results Abnormal [facility] Lymphocytes (Bld) [#/Vol] 1.7 10*3/uL [facility] Lymphocytes/100 WBC (Bld) 22.6 % [facility] MCH (RBC) [Entitic mass] 25.8 pg Low 27 - 34 pg [facility] MCHC (RBC) [Mass/Vol] 33.7 g/dL 32 - 36 g/dL [facility] MCV (RBC) [Entitic vol] 77 fL Low 80 - 100 fL [facility] Monocytes (Bld) [#/Vol] 0.6 10*3/uL [facility] Monocytes/100 WBC (Bld) 7.9 % [facility] Neutrophils (Bld) [#/Vol] 5.2 10*3/uL [facility] Neutrophils/100 WBC (Bld) 69.0 % [facility] Platelet mean volume (Bld) [Entitic vol] 7.6 fL 7 - 12 fL [facility] Platelets (Bld) [#/Vol] 221 10*3/uL [facility] RBC (Bld) [#/Vol] 4.03 10*6/uL [facility] WBC corrected for nucl RBC Auto (Bld) [#/Vol] 7.6 [facility] COMPREHENSIVE METABOLIC PANE [employer] 07-04-2023 Albumin [Mass/Vol] 3.0 g/dL Low 3.2-5.3 [facility] Comment on above: Performed By: #### 6 873-4, 31609-6, 16844-7, CMP, 80311-0, HA1C, CBCA #### [facility] ([id number]) [address], [address] [place] [address] ALP [Catalytic activity/Vol] 68 U/L Normal 39-130 [facility] Comment on above: Performed By: #### 6 873-4, 44018-6, 38876-2, CMP, 87232-3, HA1C, CBCA #### [facility] ([id number]) [address], [address] [place] [address] ALT [Catalytic activity/Vol] 14 U/L Normal 0-31 [facility] Comment on above: Performed By: #### 6 873-4, 92546-2, 27545-7, CMP, 54308-3, HA1C, CBCA #### [facility] ([id number]) [address], [address] [place] [address] Anion gap [Moles/Vol] 5 mmol/L Normal 5-15 [facility] Comment on above: Performed By: #### 6 873-4, 55656-7, 62500-3, CMP, 55059-3, HA1C, CBCA #### [facility] ([id number]) [address], [address] [place] [address] AST [Catalytic activity/Vol] 17 U/L Normal 0-41 [facility] Comment on above: Performed By: #### 6 873-4, 03600-9, 71007-0, CMP, 72646-5, HA1C, CBCA #### [facility] ([id number]) [address], [address] [place] [address] Bilirubin [Mass/Vol] 0.3 mg/dL Normal 0.3-1.2 [facility] Comment on above: Performed By: #### 6 873-4, 01927-0, 66408-1, CMP, 64889-3, HA1C, CBCA #### [facility] ([id number]) [address], [address] [place] [address] Calcium [Mass/Vol] 7.4 mg/dL Low 8.5-10.5 [facility] Comment on above: Performed By: #### 6 873-4, 76668-6, 39362-0, CMP, 07475-7, HA1C, CBCA #### [facility] ([id number]) [address], [address] [place] [address] Chloride [Moles/Vol] 113 mmol/L High 98-109 [facility] Comment on above: Performed By: #### 6 873-4, 79126-8, 20218-7, CMP, 84696-4, HA1C, CBCA #### [facility] ([id number]) [address], [address] [place] [address] CO2 [Moles/Vol] 23 mmol/L Normal 22-32 [facility] Comment on above: Performed By: #### 6 873-4, 39196-9, 40447-1, CMP, 27442-2, HA1C, CBCA #### [facility] ([id number]) [address], [address] [place] [address] Creatinine [Mass/Vol] 0.36 mg/dL Low 0.40-1.00 [facility] Comment on above: Result Comment: METH OD TRACEABLE TO IDMS STANDARD Performed By: #### 6 873-4, 61125-7, 04706-6, CMP, 03991-9, HA1C, CBCA #### [facility] ([id number]) [address], [address] [place] [address] eGFR (CKD-EPI) NON-RACE DEPENDENT >90 Normal >59 [facility] Comment on above: Result Comment: Reported eGFR is based on the CKD-EPI 1 equation that does not use a race coefficient. Performed By: #### 6 873-4, 48095-6, 69521-0, CMP, 40898-0, HA1C, CBCA #### [facility] ([id number]) [address], [address] [place] [address] Glucose [Mass/Vol] 89 mg/dL Normal 65-99 [facility] Comment on above: Performed By: #### 6 873-4, 21371-0, 59506-8, CMP, 68278-3, HA1C, CBCA #### [facility] ([id number]) [address], [address] [place] [address] Potassium [Moles/Vol] 3.4 mmol/L Low 3.5-5.0 [facility] Comment on above: Performed By: #### 6 873-4, 20756-5, 64654-7, CMP, 02248-9, HA1C, CBCA #### [facility] ([id number]) [address], [address] [place] [address] Protein [Mass/Vol] 5.0 g/dL Low 6.0-8.0 [facility] Comment on above: Performed By: #### 6 873-4, 78668-5, 17564-0, CMP, 04300-3, HA1C, CBCA #### [facility] ([id number]) [address], [address] [place] [address] Sodium [Moles/Vol] 141 mmol/L Normal 134-146 [facility] Comment on above: Performed By: #### 6 873-4, 52544-3, 89929-5, CMP, 68933-0, HA1C, CBCA #### [facility] ([id number]) [address], [address] [place] [address] Urea nitrogen [Mass/Vol] 2 mg/dL Low 5-23 [facility] Comment on above: Performed By: #### 6 873-4, 37883-2, 08231-1, CMP, 31183-6, HA1C, CBCA #### [facility] ([id number]) [address], [address] [place] [address] Calcium.ionized (Bld) [Mass/ Vol]on 07-04-2023 IONIZED CALCIUM 4.5 mg/dL Normal 4.5-5.3 [facility] Comment on above: Performed By: #### 6 873-4, 37359-2, 36021-3, CMP, 36764-2, HA1C, CBCA #### [facility] ([id number]) [address], [address] [place] [address] [facility] Comprehensive metabolic pane galileo 07-04-2023 Albumin [Mass/Vol] 3.0 g/dL Low 3.2 - 5.3 g/dL [facility] ALP [Catalytic activity/Vol] 68 U/L 39 - 130 U/L [facility] ALT No additional P-5'-P [Catalytic activity/Vol] 14 U/L 0 - 31 U/L [facility] Anion gap [Moles/Vol] 5 mmol/L 5 - 15 mmol/L [facility] AST [Catalytic activity/Vol] 17 U/L 0 - 41 U/L [facility] Bilirubin [Mass/Vol] 0.3 mg/dL 0.3 - 1 .2 mg/dL [facility] Calcium [Mass/Vol] 7.4 mg/dL Low 8.5 - 10. 5 mg/dL [facility] Chloride [Moles/Vol] 113 mmol/L High 98 - 10 9 mmol/L [facility] CO2 [Moles/Vol] 23 mmol/L 22 - 32 mmol/L [facility] Creatinine [Mass/Vol] 0.36 mg/dL Low 0.40 - 1.00 mg/dL [facility] Comment on above: METHOD TRACEABLE TO IDMD STANDARD eGFR (CKD-EPI)non-race dependent - PINF [facility] Comment on above: Reported eGFR is based on the CKD-EPI 2020 equation that does not use a race coefficient. Glucose [Mass/Vol] 89 mg/dL 65 - 99 mg/dL [facility] Potassium [Moles/Vol] 3.4 mmol/L Low 3.5 - 5.0 mmol/L [facility] Protein [Mass/Vol] 5.0 g/dL Low 6.0 - 8.0 g/dL [facility] Sodium [Moles/Vol] 141 mmol/L 134 - 146 mmol/L [facility] Urea nitrogen [Mass/Vol] 2 mg/dL Low 5 - 23 mg/d L [facility] ELECTROLYTESon 07-04-2023 Anion gap [Moles/Vol] 4 mmol/L Low 5-15 [facility] Comment on above: Performed By: #### 6 873-4, 63194-1, 04503-3, CMP, 90700-5, HA1C, CBCA #### [facility] ([id number]) [address], [address] [place] [address] Chloride [Moles/Vol] 108 mmol/L Normal 98-109 [facility] Comment on above: Performed By: #### 6 873-4, 58086-0, 93318-2, CMP, 13695-2, HA1C, CBCA #### [facility] ([id number]) [address], [address] [place] [address] CO2 [Moles/Vol] 26 mmol/L Normal 22-32 [facility] Comment on above: Performed By: #### 6 873-4, 94431-4, 64019-9, CMP, 32982-5, HA1C, CBCA #### [facility] ([id number]) [address], [address] [place] [address] Potassium [Moles/Vol] 3.9 mmol/L Normal 3.5-5.0 [facility] Comment on above: Performed By: #### 6 873-4, 04435-7, 04778-6, CMP, 10674-5, HA1C, CBCA #### [facility] ([id number]) [address], [address] [place] [address] Sodium [Moles/Vol] 138 mmol/L Normal 134-146 [facility] Comment on above: Performed By: #### 6 873-4, 53724-1, 61450-9, CMP, 03780-9, HA1C, CBCA #### [facility] ([id number]) [address], [address] [place] [address] Anion gap [Moles/Vol] 7 mmol/L Normal 5-15 [facility] Comment on above: Performed By: #### 6 873-4, 25419-2, 02995-0, CMP, 85753-1, HA1C, CBCA #### [facility] ([id number]) [address], [address] [place] [address] Chloride [Moles/Vol] 109 mmol/L Normal 98-109 [facility] Comment on above: Performed By: #### 6 873-4, 27590-9, 89820-3, CMP, 87000-1, HA1C, CBCA #### [facility] ([id number]) [address], [address] [place] [address] CO2 [Moles/Vol] 21 mmol/L Low 22-32 [facility] Comment on above: Performed By: #### 6 873-4, 16012-1, 05850-0, CMP, 64342-5, HA1C, CBCA #### [facility] ([id number]) [address], [address] [place] [address] Potassium [Moles/Vol] 3.3 mmol/L Low 3.5-5.0 [facility] Comment on above: Performed By: #### 6 873-4, 31546-5, 56893-7, CMP, 92325-5, HA1C, CBCA #### [facility] ([id number]) [address], [address] [place] [address] Sodium [Moles/Vol] 137 mmol/L Normal 134-146 [facility] Comment on above: Performed By: #### 6 873-4, 57330-9, 47622-6, [facility], 94466-1, HA1C, CBCA #### [facility] ([id number]) [address], [address] [place] [address] ETHANOLon 07-04-2023 Ethanol [Mass/Vol] mg/dL Normal 0.00-0.08 [facility] Comment on above: Result Comment: This report is intended for use in clinical monitoring or management of patients. Performed By: #### 6 873-4, 40970-7, 78384-0, [facility], 79219-1, HA1C, CBCA #### [facility] ([id number]) [address], [address] [place] [address] Electrolyte panelon 07-04-19 Anion gap [Moles/Vol] 7 mmol/L 5 - 15 mmol/L [facility] Chloride [Moles/Vol] 109 mmol/L 98 - 10 9 mmol/L [facility] CO2 [Moles/Vol] 21 mmol/L Low 22 - 32 mmol/L [facility] Interpretation and review of laboratory results Abnormal [facility] Potassium [Moles/Vol] 3.3 mmol/L Low 3.5 - 5.0 mmol/L [facility] Sodium [Moles/Vol] 137 mmol/L 134 - 146 mmol/L [facility] Glucose Glucometer (BldC) [M ass/Vol]on 07-04-2023 Glucose [Mass/Vol] 203 mg/dL High 65-99 [facility] Glucose [Mass/Vol] 173 mg/dL High 65-99 [facility] Glucose [Mass/Vol] 140 mg/dL High 65 - 99 mg/dL [facility] Glucose [Mass/Vol] 173 mg/dL High 65 - 99 mg/dL [facility] Interpretation and review of laboratory results Abnormal [facility] Glucose [Mass/Vol] 140 mg/dL High 65-99 [facility] [place] [facility] Glucose [Mass/Vol] 156 mg/dL High 65-99 [facility] [place] [facility] Glucose [Mass/Vol] 156 mg/dL High 65 - 99 mg/dL [facility] Interpretation and review of laboratory results Abnormal [facility] Glucose [Mass/Vol] 139 mg/dL High 65 - 99 mg/dL [facility] Interpretation and review of laboratory results Abnormal [facility] Glucose [Mass/Vol] 139 mg/dL High 65-99 [facility] [place] [facility] Glucose [Mass/Vol] 134 mg/dL High 65-99 [facility] [place] [facility] Glucose [Mass/Vol] 147 mg/dL High 65-99 [facility] [place] [facility] Glucose [Mass/Vol] 134 mg/dL High 65 - 99 mg/dL [facility] Interpretation and review of laboratory results Abnormal [facility] Glucose [Mass/Vol] 86 mg/dL Normal 65-99 [facility] [place] [facility] Glucose [Mass/Vol] 147 mg/dL High 65 - 99 mg/dL [facility] Interpretation and review of laboratory results Abnormal [facility] Glucose [Mass/Vol] 106 mg/dL High 65-99 [facility] [place] [facility] Glucose [Mass/Vol] 86 mg/dL 65 - 99 mg/dL [facility] Glucose [Mass/Vol] 163 mg/dL High 65-99 [facility] [place] [facility] Glucose [Mass/Vol] 235 mg/dL High 65-99 [facility] [place] [facility] Glucose [Mass/Vol] 106 mg/dL High 65 - 99 mg/dL [facility] Interpretation and review of laboratory results Abnormal [facility] Glucose [Mass/Vol] 163 mg/dL High 65 - 99 mg/dL [facility] Interpretation and review of laboratory results Abnormal [facility] Glucose [Mass/Vol] 238 mg/dL High 65-99 [facility] Glucose [Mass/Vol] 235 mg/dL High 65 - 99 mg/dL [facility] Interpretation and review of laboratory results Abnormal [facility] Glucose [Mass/Vol] 265 mg/dL High 65-99 [facility] Ionized calciumon 07-04-2023 Calcium.ionized (Bld) [Mass/Vol] 4.5 mg/dL 4.5 - 5.3 mg/dL [facility] Ionized magnesiumon 07-04-19 Magnesium Ionized ISE (Bld) [Moles/Vol] 0.72 mmol/L 0.45 - 0.74 mmol/L [facility] Comment on above: NEW REFERENCE RANGE LIVER PANELon 07-04-2023 Albumin [Mass/Vol] 3.6 g/dL Normal 3.2-5.3 [facility] Comment on above: Performed By: #### 6 873-4, 65180-0, 53086-7, CMP, 57231-0, HA1C, CBCA #### [facility] ([id number]) [address], [address] [place] [address] ALP [Catalytic activity/Vol] 82 U/L Normal 39-130 [facility] Comment on above: Performed By: #### 6 873-4, 96064-4, 24156-1, CMP, 57062-3, HA1C, CBCA #### [facility] ([id number]) [address], [address] [place] [address] ALT [Catalytic activity/Vol] 18 U/L Normal 0-31 [facility] Comment on above: Performed By: #### 6 873-4, 25379-4, 95798-1, CMP, 81289-7, HA1C, CBCA #### [facility] ([id number]) [address], [address] [place] [address] AST [Catalytic activity/Vol] 18 U/L Normal 0-41 [facility] Comment on above: Performed By: #### 6 873-4, 29524-0, 33607-3, CMP, 89663-5, HA1C, CBCA #### [facility] ([id number]) [address], [address] [place] [address] Bilirubin [Mass/Vol] 0.5 mg/dL Normal 0.3-1.2 [facility] Comment on above: Performed By: #### 6 873-4, 60615-9, 36805-1, CMP, 45260-1, HA1C, CBCA #### [facility] ([id number]) [address] [place] [address] Bilirubin.direct [Mass/Vol] 0.0 mg/dL Normal 0.0-0.4 [facility] Comment on above: Performed By: #### 6 873-4, 05334-8, 27506-1, CMP, 00968-5, HA1C, CBCA #### [facility] ([id number]) [address] [place] [address] Protein [Mass/Vol] 6.4 g/dL Normal 6.0-8.0 [facility] Comment on above: Performed By: #### 6 873-4, 22230-4, 63200-7, CMP, 11176-6, HA1C, CBCA #### [facility] ([id number]) [address], [address] [place] [address] Laboratory - Chemistry and C hemistry - challengeon 07-04-2023 Phosphate [Mass/Vol] 2.0 mg/dL Low 2.4-4.9 [facility] Comment on above: Performed By: #### 6 873-4, 10954-4, 51170-2, CMP, 33350-7, HA1C, CBCA #### [facility] ([id number]) [address] [place] [address] MAGNESIUMon 07-04-2023 Magnesium [Mass/Vol] 1.5 mg/dL Low 1.8-2.6 [facility] Comment on above: Performed By: #### 6 873-4, 18734-3, 38568-3, CMP, 63894-9, HA1C, CBCA #### [facility] ([id number]) [address], [address] [place] [address] Magnesiumon 07-04-2023 Magnesium [Mass/Vol] 1.5 mg/dL Low 1.8 - 2 .6 mg/dL [facility] Magnesium Ionized ISE (Bld) [Moles/Vol]on 07-04-2023 Magnesium [Moles/Vol] 0.72 mmol/L Normal 0.45-0.74 [facility] Comment on above: Result Comment: NEW REFERENCE RANGE Performed By: #### 6 873-4, 14393-4, 75696-8, CMP, 35018-7, HA1C, CBCA #### [facility] ([id number]) [address], [address] [place] [address] [facility] No Panel Informationon 07-04 Interpretation and review of laboratory results Abnormal [facility] Interpretation and review of laboratory results Abnormal [facility] PHOSPHORUSon 07-04-2023 Phosphate [Mass/Vol] 1.5 mg/dL Low 2.4-4.9 [facility] Comment on above: Performed By: #### 6 873-4, 51376-7, 96551-2, CMP, 00510-8, HA1C, CBCA #### [facility] ([id number]) [address], [address] [place] [address] Phosphate [Mass/Vol] mg/dL Critically low 2.4-4.9 [facility] Comment on above: Performed By: #### 6 873-4, 60722-3, 63769-0, CMP, 01012-9, HA1C, CBCA #### [facility] ([id number]) [address], [address] [place] [address] Phosphate [Mass/Vol] 1.1 mg/dL Low 2.4-4.9 [facility] Comment on above: Performed By: #### 6 873-4, 62626-7, 30906-5, CMP, 95559-5, HA1C, CBCA #### [facility] ([id number]) [address], [address] [place] [address] Phosphate [Mass/Vol]on 07-04 Interpretation and review of laboratory results Abnormal [facility] Interpretation and review of laboratory results Abnormal [facility] Phosphoruson 07-04-2023 Phosphate [Mass/Vol] mg/dL Critically low 2.4 - 4.9 mg/dL [facility] Phosphate [Mass/Vol] 1.1 mg/dL Low 2.4 - 4 .9 mg/dL [facility] VENOUS BLOOD GASon CAMI'S TEST Normal [facility] Comment on above: Performed By: #### 6 873-4, 43130-6, 27789-7, CMP, 46817-9, HA1C, CBCA #### [facility] ([id number]) [address], [address] [place] [address] Base excess Calc (Bld) [Moles/Vol] 2.0 mmol/L Normal 0.0-2.0 [facility] Comment on above: Performed By: #### 6 873-4, 42257-7, 48629-8, CMP, 68904-1, HA1C, CBCA #### [facility] ([id number]) [address], [address] [place] [address] Body temperature 98.6 [degF] Normal 37.0 [facility] Comment on above: Performed By: #### 6 873-4, 61231-4, 38705-5, CMP, 85207-7, HA1C, CBCA #### [facility] ([id number]) [address], [address] [place] [address] HCO3 (Bld) [Moles/Vol] 26.7 mmol/L High 20.0-24.0 [facility] Comment on above: Performed By: #### 6 873-4, 31066-3, 61905-6, CMP, 54187-6, HA1C, CBCA #### [facility] ([id number]) [address], [address] [place] [address] Oxygen saturation in Blood 43.0 % Low >80.0 [facility] Comment on above: Performed By: #### 6 873-4, 00408-1, 71640-1, CMP, 31913-9, HA1C, CBCA #### [facility] ([id number]) [address], [address] [place] [address] OXYGEN SOURCE RoomAir Normal [facility] Comment on above: Performed By: #### 6 873-4, 26878-1, 48300-7, CMP, 73556-2, HA1C, CBCA #### [facility] ([id number]) [address], [address] [place] [address] PCO2, VENOUS 43.5 MMHG Normal 35-50 [facility] Comment on above: Performed By: #### 6 873-4, 79376-3, 62918-0, CMP, 00481-7, HA1C, CBCA #### [facility] ([id number]) [address], [address] [place] [address] PH, VENOUS 7.397 Normal 7.320-7.420 [facility] Comment on above: Performed By: #### 6 873-4, 89588-6, 97387-6, CMP, 79825-2, HA1C, CBCA #### [facility] ([id number]) [address], [address] [place] [address] PO2, VENOUS 24 MMHG Low 30-50 [facility] Comment on above: Performed By: #### 6 873-4, 30742-5, 01169-2, CMP, 83369-1, HA1C, CBCA #### [facility] ([id number]) [address], [address] [place] [address] SAMPLE SITE N/A Normal [facility] Comment on above: Performed By: #### 6 873-4, 96184-3, 62518-7, CMP, 69844-4, HA1C, CBCA #### [facility] ([id number]) [address], [address] [place] [address] SAMPLE TYPE VENOUS Normal [facility] Comment on above: Performed By: #### 6 873-4, 97698-5, 99671-1, CMP, 98228-0, HA1C, CBCA #### [facility] ([id number]) [address], [address] [place] [address] Beta hydroxybutyrate [Moles/ Vol]on 07-03-2023 BetaHydroxybutyrate 1.23 mmol/L High 0.02-0.27 [facility] Comment on above: Performed By: #### 6 873-4, 43545-5, 58569-8, CMP, 12945-5, HA1C, CBCA #### [facility] ([id number]) [address], [address] [place] [address] BetaHydroxybutyrate 2.65 mmol/L High 0.02-0.27 [facility] Comment on above: Performed By: #### 6 873-4, 70643-5, 39079-8, CMP, 54137-1, HA1C, CBCA #### [facility] ([id number]) [address], [address] [place] [address] Interpretation and review of laboratory results Abnormal [facility] BetaHydroxybutyrate 2.84 mmol/L High 0.02-0.27 [facility] Comment on above: Performed By: #### 6 873-4, 52128-0, 56421-9, CMP, 71953-5, HA1C, CBCA #### [facility] ([id number]) [address], [address] [place] [address] BetaHydroxybutyrateon 2023 Beta hydroxybutyrate [Moles/Vol] 1.23 mmol/L High 0.02 - 0.27 mmol/L [facility] Beta hydroxybutyrate [Moles/Vol] 2.65 mmol/L High 0.02 - 0.27 mmol/L [facility] Beta hydroxybutyrate [Moles/Vol] 2.84 mmol/L High 0.02 - 0.27 mmol/L [facility] CBC AND AUTO DIFFon 07-03-19 ABSOLUTE BASOPHIL 0.1 X10E9/L Normal 0.0-0.2 [facility] Comment on above: Performed By: #### 6 873-4, 66267-8, 40319-8, CMP, 29139-5, HA1C, CBCA #### [facility] ([id number]) [address], [address] [place] [address] ABSOLUTE NEUTROPHIL 11.0 X10E9/L High 1.5-6.6 [facility] Comment on above: Performed By: #### 6 873-4, 44709-2, 40657-2, CMP, 36886-5, HA1C, CBCA #### [facility] ([id number]) [address], [address] [place] [address] Basophils/100 WBC (Bld) 0.6 % Normal [facility] Comment on above: Performed By: #### 6 873-4, 05976-5, 87871-6, CMP, 29159-5, HA1C, CBCA #### [facility] ([id number]) [address], [address] [place] [address] Eosinophils (Bld) [#/Vol] 0.0 10*3/uL Normal 0.0-0.4 [facility] Comment on above: Performed By: #### 6 873-4, 40558-8, 79065-0, CMP, 51638-8, HA1C, CBCA #### [facility] ([id number]) [address], [address] [place] [address] Eosinophils/100 WBC (Bld) 0.0 % Normal [facility] Comment on above: Performed By: #### 6 873-4, 03399-7, 73870-3, CMP, 84709-0, HA1C, CBCA #### [facility] ([id number]) [address] [address] Erythrocyte distribution width (RBC) [Ratio] 14.8 % Normal 11.5-15.0 [facility] Comment on above: Performed By: #### 6 873-4, 70381-0, 35686-5, CMP, 72696-9, HA1C, CBCA #### [facility] ([id number]) [address] [address] [place] [address] Hematocrit (Bld) [Volume fraction] 33.7 % Low 35-47 [facility] Comment on above: Performed By: #### 6 873-4, 00243-4, 31284-1, CMP, 42180-6, HA1C, CBCA #### [facility] ([id number]) [address] [address] [place] [address] Hemoglobin (Bld) [Mass/Vol] 10.8 g/dL Low 11.7-15.5 [facility] Comment on above: Performed By: #### 6 873-4, 97505-0, 08785-4, CMP, 05316-9, HA1C, CBCA #### [facility] ([id number]) [address] [address] Lymphocytes (Bld) [#/Vol] 0.5 10*3/uL Low 1.0-3.5 [facility] Comment on above: Performed By: #### 6 873-4, 11006-6, 22064-7, CMP, 58631-2, HA1C, CBCA #### [facility] ([id number]) [address], [address] [place] [address] Lymphocytes/100 WBC (Bld) 4.1 % Normal [facility] Comment on above: Performed By: #### 6 873-4, 02110-0, 50536-9, CMP, 22804-7, HA1C, CBCA #### [facility] ([id number]) [address], [facility] [address] [place] [address] MCH (RBC) [Entitic mass] 25.4 pg Low 27-34 [facility] Comment on above: Performed By: #### 6 873-4, 88298-5, 26126-7, CMP, 26081-2, HA1C, CBCA #### [facility] ([id number]) [address], [address] [place] [address] MCHC (RBC) [Mass/Vol] 32.2 g/dL Normal 32-36 [facility] Comment on above: Performed By: #### 6 873-4, 19310-3, 61686-8, CMP, 41009-3, HA1C, CBCA #### [facility] ([id number]) [address], [address] [place] [address] MCV (RBC) [Entitic vol] 79 fL Low 80-100 P [facility] Comment on above: Performed By: #### 6 873-4, 38892-6, 38968-3, CMP, 22469-7, HA1C, CBCA #### [facility] ([id number]) [address] [address] [place] [address] Monocytes (Bld) [#/Vol] 0.9 10*3/uL Normal 0-0.9 [facility] Comment on above: Performed By: #### 6 873-4, 50499-1, 71416-2, CMP, 78265-3, HA1C, CBCA #### [facility] ([id number]) [address], [address] [place] [address] Monocytes/100 WBC (Bld) 7.0 % Normal P [facility] Comment on above: Performed By: #### 6 873-4, 07881-7, 04435-9, CMP, 92613-4, HA1C, CBCA #### [facility] ([id number]) [address], [address] [place] [address] Neutrophils/100 WBC (Bld) 88.3 % Normal [facility] Comment on above: Performed By: #### 6 873-4, 23003-1, 58405-8, CMP, 26257-2, HA1C, CBCA #### [facility] ([id number]) [address], [address] [place] [address] Platelet mean volume (Bld) [Entitic vol] 7.7 fL Normal 7-12 [facility] Comment on above: Performed By: #### 6 873-4, 59713-7, 49367-9, CMP, 34968-7, HA1C, CBCA #### [facility] ([id number]) [address], [address] [place] [address] Platelets (Bld) [#/Vol] 231 10*3/uL Normal 150-450 [facility] Comment on above: Performed By: #### 6 873-4, 23442-4, 50734-7, CMP, 46021-9, HA1C, CBCA #### [facility] ([id number]) [address], [address] [place] [address] RBC COUNT 4.26 X10E12/L Normal 3.80-5.20 [facility] Comment on above: Performed By: #### 6 873-4, 01270-2, 92158-7, CMP, 42721-9, HA1C, CBCA #### [facility] ([id number]) [address], [address] [place] [address] WBC (Bld) [#/Vol] 12.4 10*3/uL High 4.0-11.0 [facility] Comment on above: Performed By: #### 6 873-4, 89043-6, 94122-1, CMP, 13518-9, HA1C, CBCA #### [facility] ([id number]) [address] [place] [address] CBC auto differentialon Basophils (Bld) [#/Vol] 0.1 10*3/uL [facility] Basophils/100 WBC (Bld) 0.6 % P [facility] Eosinophils (Bld) [#/Vol] 0.0 10*3/uL [facility] Eosinophils/100 WBC (Bld) 0.0 % [facility] Erythrocyte distribution width (RBC) [Ratio] 14.8 % 11.5 - 15.0 % [facility] Hematocrit (Bld) [Volume fraction] 33.7 % Low 35 - 47 % [facility] Hemoglobin (Bld) [Mass/Vol] 10.8 g/dL Low 11.7 - 15.5 g/dL [facility] Interpretation and review of laboratory results Abnormal [facility] Lymphocytes (Bld) [#/Vol] 0.5 10*3/uL Low [facility] Lymphocytes/100 WBC (Bld) 4.1 % [facility] MCH (RBC) [Entitic mass] 25.4 pg Low 27 - 34 pg [facility] MCHC (RBC) [Mass/Vol] 32.2 g/dL 32 - 36 g/dL [facility] MCV (RBC) [Entitic vol] 79 fL Low 80 - 100 fL [facility] Monocytes (Bld) [#/Vol] 0.9 10*3/uL [facility] Monocytes/100 WBC (Bld) 7.0 % [facility] Neutrophils (Bld) [#/Vol] 11.0 10*3/uL High [facility] Neutrophils/100 WBC (Bld) 88.3 % [facility] Platelet mean volume (Bld) [Entitic vol] 7.7 fL 7 - 12 fL [facility] Platelets (Bld) [#/Vol] 231 10*3/uL [facility] RBC (Bld) [#/Vol] 4.26 10*6/uL [facility] WBC corrected for nucl RBC Auto (Bld) [#/Vol] 12.4 High [facility] COMPREHENSIVE METABOLIC PANE [employer] 07-03-2023 Albumin [Mass/Vol] 3.4 g/dL Normal 3.2-5.3 [facility] Comment on above: Performed By: #### 6 873-4, 38600-3, 31798-7, CMP, 14844-3, HA1C, CBCA #### [facility] ([id number]) [address] [place] [address] ALP [Catalytic activity/Vol] 80 U/L Normal 39-130 [facility] Comment on above: Performed By: #### 6 873-4, 06592-3, 98529-5, CMP, 46053-4, HA1C, CBCA #### [facility] ([id number]) [address] [place] [address] ALT [Catalytic activity/Vol] 14 U/L Normal 0-31 [facility] Comment on above: Performed By: #### 6 873-4, 66368-9, 60839-2, CMP, 36398-9, HA1C, CBCA #### [facility] ([id number]) [address] [place] [address] Anion gap [Moles/Vol] 10 mmol/L Normal 5-15 [facility] Comment on above: Performed By: #### 6 873-4, 09736-3, 31719-5, CMP, 68685-0, HA1C, CBCA #### [facility] ([id number]) [address], [address] [place] [address] AST [Catalytic activity/Vol] 23 U/L Normal 0-41 [facility] Comment on above: Performed By: #### 6 873-4, 68587-6, 80572-5, CMP, 89673-0, HA1C, CBCA #### [facility] ([id number]) [address], [address] [place] [address] Bilirubin [Mass/Vol] 0.3 mg/dL Normal 0.3-1.2 [facility] Comment on above: Performed By: #### 6 873-4, 71091-0, 59165-4, CMP, 01973-8, HA1C, CBCA #### [facility] ([id number]) [address], [address] [place] [address] Calcium [Mass/Vol] 6.6 mg/dL Critically low 8.5-10.5 [facility] Comment on above: Performed By: #### 6 873-4, 17116-5, 26668-2, CMP, 30697-0, HA1C, CBCA #### [facility] ([id number]) [address], [address] [place] [address] Chloride [Moles/Vol] 117 mmol/L High 98-109 [facility] Comment on above: Performed By: #### 6 873-4, 91500-3, 11562-4, CMP, 05605-3, HA1C, CBCA #### [facility] ([id number]) [address], [address] [place] [address] CO2 [Moles/Vol] 12 mmol/L Low 22-32 [facility] Comment on above: Performed By: #### 6 873-4, 02261-4, 96273-0, CMP, 51758-4, HA1C, CBCA #### [facility] ([id number]) [address], [address] [place] [address] Creatinine [Mass/Vol] 0.53 mg/dL Normal 0.40-1.00 [facility] Comment on above: Result Comment: METH OD TRACEABLE TO IDMS STANDARD Performed By: #### 6 873-4, 87114-8, 08853-1, CMP, 55821-5, HA1C, CBCA #### [facility] ([id number]) [address], [address] [place] [address] eGFR (CKD-EPI) NON-RACE DEPENDENT >90 Normal >59 [facility] Comment on above: Result Comment: Reported eGFR is based on the CKD-EPI 2020 equation that does not use a race coefficient. Performed By: #### 6 873-4, 88318-6, 03652-0, CMP, 76257-7, HA1C, CBCA #### [facility] ([id number]) [address], [address] [place] [address] Glucose [Mass/Vol] 214 mg/dL High 65-99 [facility] Comment on above: Performed By: #### 6 873-4, 45540-4, 37636-1, CMP, 82948-3, HA1C, CBCA #### [facility] ([id number]) [address], [address] [place] [address] Potassium [Moles/Vol] 3.7 mmol/L Normal 3.5-5.0 [facility] Comment on above: Performed By: #### 6 873-4, 67912-0, 42660-6, CMP, 88083-9, HA1C, CBCA #### [facility] ([id number]) [address], [address] [place] [address] Protein [Mass/Vol] 5.7 g/dL Low 6.0-8.0 [facility] Comment on above: Performed By: #### 6 873-4, 40653-5, 17419-9, CMP, 40575-9, HA1C, CBCA #### [facility] ([id number]) [address], [address] [place] [address] Sodium [Moles/Vol] 139 mmol/L Normal 134-146 [facility] Comment on above: Performed By: #### 6 873-4, 90875-4, 96101-0, CMP, 46836-9, HA1C, CBCA #### [facility] ([id number]) [address] [place] [address] Urea nitrogen [Mass/Vol] 8 mg/dL Normal 5-23 [facility] Comment on above: Performed By: #### 6 873-4, 96935-8, 42433-2, CMP, 93721-4, HA1C, CBCA #### [facility] ([id number]) [address] [place] [address] Calcium.ionized (Bld) [Mass/ Vol]on 07-03-2023 IONIZED CALCIUM 4.5 mg/dL Normal 4.5-5.3 [facility] Comment on above: Performed By: #### 6 873-4, 29755-6, 93556-0, CMP, 68089-3, HA1C, CBCA #### [facility] ([id number]) [address], [address] [place] [address] [facility] IONIZED CALCIUM 4.3 mg/dL Low 4.5-5.3 [facility] Comment on above: Performed By: #### 6 873-4, 81355-1, 16033-9, CMP, 86635-0, HA1C, CBCA #### [facility] ([id number]) [address], [address] [place] [address] Interpretation and review of laboratory results Abnormal [facility] Cardiac echo study Procedure Ordered By: Dilan Navarrete on 07-03-2023 Aortic root 2.70 cm [employer] Work Phone: [phone] AV mean gradient 5.00 mmHg [employer] Work Phone: [phone] AV peak gradient 9.99 mmHg [employer] Work Phone: [phone] AV peak deep 158.00 cm/s [employer] Work Phone: [phone] AV Velocity Ratio 0.60 [employer] Work Phone: [phone] AV VTI 27.60 cm [employer] Work Phone: [phone] E wave deceleration time 194.00 msec [employer] Work Phone: [phone] E/A ratio 1.15 [employer] Work Phone: [phone] Echo EF Estimated 61 % [employer] Work Phone: [phone] 61 [phone] [employer] Work Phone: [phone] 35 % 28 - 44 % [employer] Work Phone: [phone] Interventricular Septum Diastolic Thickness by 2D 11 cm [employer] Work Phone: [phone] IVS 1.10 cm 0.6 - 1.1 cm [employer] Work Phone: [phone] LA size 3.20 cm [employer] Work Phone: [phone] LA volume 40.30 cm3 [employer] Work Phone: [phone] LA Volume Index 23.4 mL/m2 [employer] Work Phone: [phone] Left Ventricle Mass 181.666999656268975 g [employer] Work Phone: [phone] LV Diastolic Volume 115.00 mL [employer] Work Phone: [phone] LV ESV A2C 38.20 mL [employer] Work Phone: [phone] LV ESV A4C 39.60 mL [employer] Work Phone: [phone] LV RWT 2D 47.83 [employer] Work Phone: [phone] LV Systolic Volume 44.40 mL [facility] Work Phone: [phone] LVIDd 4.60 cm 4.09 - 5.68 cm [facility] Work Phone: [phone] LVIDs 3.00 cm 2.42 - 3.67 cm [employer] Work Phone: [phone] LVOT peak deep 0.92 m/s [facility] Work Phone: [phone] LVOT peak VTI 16.50 cm [employer] Work Phone: [phone] MV Peak A Deep 76.60 cm/s [facility] Work Phone: [phone] MV Peak E Deep 87.80 cm/s [employer] Work Phone: [phone] MV pressure 1/2 time 57.00 ms [facility] Work Phone: [phone] MV TDI E' (medial) 7.29 cm/s [facility] Work Phone: [phone] MV valve area p 1/2 method 3.86 cm2 [employer] Work Phone: [phone] PW 1.10 cm 0.6 - 1.1 cm [employer] Work Phone: [phone] RV diastolic dimension (basal) 36.0 mm [employer] Work Phone: [phone] RV diastolic dimension (mid-ventricle) 31.0 cm [employer] Work Phone: [phone] RV diastolic length 62.0 cm [facility] [employer] Work Phone: [phone] RV Peak Systolic Pressure 24 mmHg [facility] Work Phone: [phone] TAPSE 2.46 cm [employer] Work Phone: [phone] TDI 10.30 cm/s [facility] Work Phone: [phone] TR peak gradient 21.72 mmHg [employer] Work Phone: [phone] TR Peak Deep 2.3 m/s [employer] Work Phone: [phone] ZLVIDD -0.46 [employer] Work Phone: [phone] ZLVIDS 0.05 [employer] Work Phone: [phone] [employer] Work Phone: [phone] Cardiac echo study Procedure on 07-03-2023 Left [...] is normal. [facility] Radiology Study observation (narrative) [facility] Comprehensive metabolic pane galileo 07-03-2023 Albumin [Mass/Vol] 3.4 g/dL 3.2 - 5.3 g/dL [facility] ALP [Catalytic activity/Vol] 80 U/L 39 - 130 U/L [facility] ALT No additional P-5'-P [Catalytic activity/Vol] 14 U/L 0 - 31 U/L [facility] Anion gap [Moles/Vol] 10 mmol/L 5 - 15 mmol/L [facility] AST [Catalytic activity/Vol] 23 U/L 0 - 41 U/L [facility] Bilirubin [Mass/Vol] 0.3 mg/dL 0.3 - 1 .2 mg/dL [facility] Calcium [Mass/Vol] 6.6 mg/dL Critically low 8.5 - 1 0.5 mg/dL [facility] Chloride [Moles/Vol] 117 mmol/L High 98 - 10 9 mmol/L [facility] CO2 [Moles/Vol] 12 mmol/L Low 22 - 32 mmol/L [facility] Creatinine [Mass/Vol] 0.53 mg/dL 0.40 - 1.00 mg/dL [facility] Comment on above: METHOD TRACEABLE TO IDMD STANDARD eGFR (CKD-EPI)non-race dependent - PINF [facility] Comment on above: Reported eGFR is based on the CKD-EPI 2020 equation that does not use a race coefficient. Glucose [Mass/Vol] 214 mg/dL High 65 - 99 mg/dL [facility] Potassium [Moles/Vol] 3.7 mmol/L 3.5 - 5.0 mmol/L [facility] Protein [Mass/Vol] 5.7 g/dL Low 6.0 - 8.0 g/dL [facility] Sodium [Moles/Vol] 139 mmol/L 134 - 146 mmol/L [facility] Urea nitrogen [Mass/Vol] 8 mg/dL 5 - 23 mg/d L [facility] ELECTROLYTESon 07-03-2023 Anion gap [Moles/Vol] 7 mmol/L Normal 5-15 [facility] Comment on above: Performed By: #### 6 873-4, 57261-9, 42648-2, CMP, 12436-9, HA1C, CBCA #### [facility] ([id number]) [address], [address] [place] [address] Chloride [Moles/Vol] 108 mmol/L Normal 98-109 [facility] Comment on above: Performed By: #### 6 873-4, 32868-7, 49523-4, CMP, 55400-4, HA1C, CBCA #### [facility] ([id number]) [address], [address] [place] [address] CO2 [Moles/Vol] 20 mmol/L Low 22-32 [facility] Comment on above: Performed By: #### 6 873-4, 52268-2, 66074-2, CMP, 69625-4, HA1C, CBCA #### [facility] ([id number]) [address], [address] [place] [address] Potassium [Moles/Vol] 3.4 mmol/L Low 3.5-5.0 [facility] Comment on above: Performed By: #### 6 873-4, 30690-0, 73828-7, CMP, 27129-1, HA1C, CBCA #### [facility] ([id number]) [address], [address] [place] [address] Sodium [Moles/Vol] 135 mmol/L Normal 134-146 [facility] Comment on above: Performed By: #### 6 873-4, 17289-2, 38882-4, CMP, 43444-6, HA1C, CBCA #### [facility] ([id number]) [address], [address] [place] [address] Anion gap [Moles/Vol] 12 mmol/L Normal 5-15 [facility] Comment on above: Performed By: #### 6 873-4, 95247-9, 04741-1, CMP, 67264-3, HA1C, CBCA #### [facility] ([id number]) [address], [address] [place] [address] Chloride [Moles/Vol] 108 mmol/L Normal 98-109 [facility] Comment on above: Performed By: #### 6 873-4, 06529-5, 79117-1, CMP, 36060-3, HA1C, CBCA #### [facility] ([id number]) [address], [address] [place] [address] CO2 [Moles/Vol] 15 mmol/L Low 22-32 [facility] Comment on above: Performed By: #### 6 873-4, 35103-9, 67993-3, CMP, 30150-4, HA1C, CBCA #### [facility] ([id number]) [address], [address] [place] [address] Potassium [Moles/Vol] 3.7 mmol/L Normal 3.5-5.0 [facility] Comment on above: Performed By: #### 6 873-4, 01253-4, 82509-7, CMP, 72967-4, HA1C, CBCA #### [facility] ([id number]) [address], [address] [place] [address] Sodium [Moles/Vol] 135 mmol/L Normal 134-146 [facility] Comment on above: Performed By: #### 6 873-4, 18513-9, 60131-5, CMP, 16730-6, HA1C, CBCA #### [facility] ([id number]) [address], [address] [place] [address] Anion gap [Moles/Vol] 8 mmol/L Normal 5-15 [facility] Comment on above: Performed By: #### 6 873-4, 25325-0, 46298-1, CMP, 44795-2, HA1C, CBCA #### [facility] ([id number]) [address], [address] [place] [address] Chloride [Moles/Vol] 108 mmol/L Normal 98-109 [facility] Comment on above: Performed By: #### 6 873-4, 69932-3, 25748-0, CMP, 37475-4, HA1C, CBCA #### [facility] ([id number]) [address], [address] [place] [address] CO2 [Moles/Vol] 18 mmol/L Low 22-32 [facility] Comment on above: Performed By: #### 6 873-4, 45568-8, 03709-8, CMP, 45054-6, HA1C, CBCA #### [facility] ([id number]) [address], [address] [place] [address] Potassium [Moles/Vol] 3.7 mmol/L Normal 3.5-5.0 [facility] Comment on above: Performed By: #### 6 873-4, 66423-4, 58993-7, CMP, 22104-9, HA1C, CBCA #### [facility] ([id number]) [address], [address] [place] [address] Sodium [Moles/Vol] 134 mmol/L Normal 134-146 [facility] Comment on above: Performed By: #### 6 873-4, 39774-7, 05010-2, CMP, 69035-2, HA1C, CBCA #### [facility] ([id number]) [address], [address] [place] [address] Anion gap [Moles/Vol] 8 mmol/L Normal 5-15 [facility] Comment on above: Performed By: #### 6 873-4, 87173-0, 55457-0, CMP, 17964-1, HA1C, CBCA #### [facility] ([id number]) [address], [address] [place] [address] Chloride [Moles/Vol] 116 mmol/L High 98-109 [facility] Comment on above: Performed By: #### 6 873-4, 76615-2, 09793-4, CMP, 72654-7, HA1C, CBCA #### [facility] ([id number]) [address], [address] [place] [address] CO2 [Moles/Vol] 15 mmol/L Low 22-32 [facility] Comment on above: Performed By: #### 6 873-4, 13962-6, 18932-0, CMP, 73763-9, HA1C, CBCA #### [facility] ([id number]) [address], [address] [place] [address] Potassium [Moles/Vol] 3.0 mmol/L Low 3.5-5.0 [facility] Comment on above: Performed By: #### 6 873-4, 94030-4, 21985-6, CMP, 99796-7, HA1C, CBCA #### [facility] ([id number]) [address], [address] [place] [address] Sodium [Moles/Vol] 139 mmol/L Normal 134-146 [facility] Comment on above: Performed By: #### 6 873-4, 88381-3, 59242-2, CMP, 67112-5, HA1C, CBCA #### [facility] ([id number]) [address], [address] [place] [address] Anion gap [Moles/Vol] 8 mmol/L Normal 5-15 [facility] Comment on above: Performed By: #### 6 873-4, 83919-2, 55696-9, CMP, 63224-9, HA1C, CBCA #### [facility] ([id number]) [address], [address] [place] [address] Chloride [Moles/Vol] 121 mmol/L High 98-109 [facility] Comment on above: Performed By: #### 6 873-4, 97676-6, 12205-4, CMP, 99484-4, HA1C, CBCA #### [facility] ([id number]) [address], [address] [place] [address] CO2 [Moles/Vol] 13 mmol/L Low 22-32 [facility] Comment on above: Performed By: #### 6 873-4, 97442-6, 92395-6, CMP, 59362-3, HA1C, CBCA #### [facility] ([id number]) [address], [address] [place] [address] Potassium [Moles/Vol] 3.2 mmol/L Low 3.5-5.0 [facility] Comment on above: Performed By: #### 6 873-4, 32579-3, 76846-1, CMP, 70426-9, HA1C, CBCA #### [facility] ([id number]) [address], [address] [place] [address] Sodium [Moles/Vol] 142 mmol/L Normal 134-146 [facility] Comment on above: Performed By: #### 6 873-4, 61473-6, 18743-6, CMP, 97113-9, HA1C, CBCA #### [facility] ([id number]) [address], [address] [place] [address] Electrolyte panelon 07-03-19 Anion gap [Moles/Vol] 7 mmol/L 5 - 15 mmol/L [facility] Chloride [Moles/Vol] 108 mmol/L 98 - 10 9 mmol/L [facility] CO2 [Moles/Vol] 20 mmol/L Low 22 - 32 mmol/L [facility] Potassium [Moles/Vol] 3.4 mmol/L Low 3.5 - 5.0 mmol/L [facility] Sodium [Moles/Vol] 135 mmol/L 134 - 146 mmol/L [facility] Anion gap [Moles/Vol] 12 mmol/L 5 - 15 mmol/L [facility] Chloride [Moles/Vol] 108 mmol/L 98 - 10 9 mmol/L [facility] CO2 [Moles/Vol] 15 mmol/L Low 22 - 32 mmol/L [facility] Potassium [Moles/Vol] 3.7 mmol/L 3.5 - 5.0 mmol/L [facility] Sodium [Moles/Vol] 135 mmol/L 134 - 146 mmol/L [facility] Anion gap [Moles/Vol] 8 mmol/L 5 - 15 mmol/L [facility] Chloride [Moles/Vol] 108 mmol/L 98 - 10 9 mmol/L [facility] CO2 [Moles/Vol] 18 mmol/L Low 22 - 32 mmol/L [facility] Potassium [Moles/Vol] 3.7 mmol/L 3.5 - 5.0 mmol/L [facility] Sodium [Moles/Vol] 134 mmol/L 134 - 146 mmol/L [facility] Anion gap [Moles/Vol] 8 mmol/L 5 - 15 mmol/L [facility] Chloride [Moles/Vol] 116 mmol/L High 98 - 10 9 mmol/L [facility] CO2 [Moles/Vol] 15 mmol/L Low 22 - 32 mmol/L [facility] Interpretation and review of laboratory results Abnormal [facility] Potassium [Moles/Vol] 3.0 mmol/L Low 3.5 - 5.0 mmol/L [facility] Sodium [Moles/Vol] 139 mmol/L 134 - 146 mmol/L [facility] Anion gap [Moles/Vol] 8 mmol/L 5 - 15 mmol/L [facility] Chloride [Moles/Vol] 121 mmol/L High 98 - 10 9 mmol/L [facility] CO2 [Moles/Vol] 13 mmol/L Low 22 - 32 mmol/L [facility] Interpretation and review of laboratory results Abnormal [facility] Potassium [Moles/Vol] 3.2 mmol/L Low 3.5 - 5.0 mmol/L [facility] Sodium [Moles/Vol] 142 mmol/L 134 - 146 mmol/L [facility] Glucose Glucometer (BldC) [M ass/Vol]on 07-03-2023 Glucose [Mass/Vol] 238 mg/dL High 65 - 99 mg/dL [facility] Interpretation and review of laboratory results Abnormal [facility] Glucose [Mass/Vol] 251 mg/dL High 65-99 [facility] Glucose [Mass/Vol] 265 mg/dL High 65 - 99 mg/dL [facility] Interpretation and review of laboratory results Abnormal [facility] Glucose [Mass/Vol] 243 mg/dL High 65-99 [facility] Glucose [Mass/Vol] 241 mg/dL High 65-99 [facility] Glucose [Mass/Vol] 251 mg/dL High 65 - 99 mg/dL [facility] Interpretation and review of laboratory results Abnormal [facility] Glucose [Mass/Vol] 243 mg/dL High 65 - 99 mg/dL [facility] Interpretation and review of laboratory results Abnormal [facility] Glucose [Mass/Vol] 171 mg/dL High 65-99 [facility] Glucose [Mass/Vol] 241 mg/dL High 65 - 99 mg/dL [facility] Interpretation and review of laboratory results Abnormal [facility] Glucose [Mass/Vol] 171 mg/dL High 65 - 99 mg/dL [facility] Interpretation and review of laboratory results Abnormal [facility] Glucose [Mass/Vol] 186 mg/dL High 65-99 [facility] Glucose [Mass/Vol] 186 mg/dL High 65 - 99 mg/dL [facility] Interpretation and review of laboratory results Abnormal [facility] Glucose [Mass/Vol] 130 mg/dL High 65-99 [facility] Interpretation and review of laboratory results Abnormal [facility] Glucose [Mass/Vol] 149 mg/dL High 65-99 [facility] Glucose [Mass/Vol] 200 mg/dL High 65-99 [facility] Glucose [Mass/Vol] 149 mg/dL High 65 - 99 mg/dL [facility] Interpretation and review of laboratory results Abnormal [facility] Glucose [Mass/Vol] 215 mg/dL High 65-99 [facility] Glucose [Mass/Vol] 253 mg/dL High 65-99 [facility] Interpretation and review of laboratory results Abnormal [facility] Glucose [Mass/Vol] 200 mg/dL High 65 - 99 mg/dL [facility] Interpretation and review of laboratory results Abnormal [facility] Glucose [Mass/Vol] 215 mg/dL High 65 - 99 mg/dL [facility] Interpretation and review of laboratory results Abnormal [facility] Glucose [Mass/Vol] 219 mg/dL High 65-99 [facility] Glucose [Mass/Vol] 223 mg/dL High 65-99 [facility] Glucose [Mass/Vol] 219 mg/dL High 65 - 99 mg/dL [facility] Interpretation and review of laboratory results Abnormal [facility] Glucose [Mass/Vol] 160 mg/dL High 65-99 [facility] Glucose [Mass/Vol] 223 mg/dL High 65 - 99 mg/dL [facility] Interpretation and review of laboratory results Abnormal [facility] Glucose [Mass/Vol] 154 mg/dL High 65-99 [facility] Glucose [Mass/Vol] 160 mg/dL High 65 - 99 mg/dL [facility] Interpretation and review of laboratory results Abnormal [facility] Glucose [Mass/Vol] 186 mg/dL High 65-99 [facility] Glucose [Mass/Vol] 154 mg/dL High 65 - 99 mg/dL [facility] Interpretation and review of laboratory results Abnormal [facility] Glucose [Mass/Vol] 212 mg/dL High 65-99 [facility] Glucose [Mass/Vol] 186 mg/dL High 65 - 99 mg/dL [facility] Interpretation and review of laboratory results Abnormal [facility] Glucose [Mass/Vol] 233 mg/dL High 65-99 [facility] Glucose [Mass/Vol] 212 mg/dL High 65 - 99 mg/dL [facility] Interpretation and review of laboratory results Abnormal [facility] Ionized calciumon 07-03-2023 Calcium.ionized (Bld) [Mass/Vol] 4.5 mg/dL 4.5 - 5.3 mg/dL [facility] Calcium.ionized (Bld) [Mass/Vol] 4.3 mg/dL Low 4.5 - 5.3 mg/dL [facility] MAGNESIUMon 07-03-2023 Magnesium [Mass/Vol] 1.8 mg/dL Normal 1.8-2.6 [facility] Comment on above: Performed By: #### 6 873-4, 69433-7, 48133-1, CMP, 58963-8, HA1C, CBCA #### [facility] ([id number]) [address], [address] [place] [address] Magnesiumon 07-03-2023 Magnesium [Mass/Vol] 1.8 mg/dL 1.8 - 2 .6 mg/dL [facility] No Panel Informationon 07-03 Interpretation and review of laboratory results Abnormal [facility] Interpretation and review of laboratory results Abnormal [facility] Interpretation and review of laboratory results Abnormal [facility] Interpretation and review of laboratory results Abnormal [facility] Interpretation and review of laboratory results Abnormal [facility] Interpretation and review of laboratory results Abnormal [facility] PHOSPHORUSon 07-03-2023 Phosphate [Mass/Vol] 1.1 mg/dL Low 2.4-4.9 [facility] Comment on above: Performed By: #### 6 873-4, 47803-4, 07701-5, CMP, 58285-0, HA1C, CBCA #### [facility] ([id number]) [address] [place] [address] Phosphate [Mass/Vol] 2.2 mg/dL Low 2.4-4.9 [facility] Comment on above: Performed By: #### 6 873-4, 87989-8, 76516-8, CMP, 56567-1, HA1C, CBCA #### [facility] ([id number]) [address] [place] [address] Phosphate [Mass/Vol] 1.9 mg/dL Low 2.4-4.9 [facility] Comment on above: Performed By: #### 6 873-4, 72208-0, 54931-4, CMP, 57998-0, HA1C, CBCA #### [facility] ([id number]) [address], [address] [place] [address] Phosphate [Mass/Vol] mg/dL Critically low 2.4-4.9 [facility] Comment on above: Performed By: #### 6 873-4, 64241-4, 68306-0, CMP, 99076-8, HA1C, CBCA #### [facility] ([id number]) [address] [place] [address] Phosphate [Mass/Vol] 2.2 mg/dL Low 2.4-4.9 [facility] Comment on above: Performed By: #### 6 873-4, 55068-3, 22212-7, CMP, 93613-8, HA1C, CBCA #### [facility] ([id number]) [address] [place] [address] Phosphate [Mass/Vol] mg/dL Critically low 2.4-4.9 [facility] Comment on above: Performed By: #### 6 873-4, 21330-8, 88397-1, CMP, 21207-3, HA1C, CBCA #### [facility] ([id number]) [address], [address] [place] [address] Phosphate [Mass/Vol]on 07-03 Interpretation and review of laboratory results Abnormal [facility] Phosphoruson 07-03-2023 Phosphate [Mass/Vol] 1.1 mg/dL Low 2.4 - 4 .9 mg/dL [facility] Phosphate [Mass/Vol] 2.2 mg/dL Low 2.4 - 4 .9 mg/dL [facility] Phosphate [Mass/Vol] 1.9 mg/dL Low 2.4 - 4 .9 mg/dL [facility] Phosphate [Mass/Vol] mg/dL Critically low 2.4 - 4.9 mg/dL [facility] Phosphate [Mass/Vol] 2.2 mg/dL Low 2.4 - 4 .9 mg/dL [facility] Phosphate [Mass/Vol] mg/dL Critically low 2.4 - 4.9 mg/dL [facility] TROPONIN Ion 07-03-2023 Troponin I.cardiac [Mass/Vol] 0.69 ng/mL Critically high 0.00-0.04 [facility] Comment on above: Result Comment: Concentrations greater than or equal to 0.05 ng/ml are considered elevated. Elevations of Troponin may be due to causes other than myocardial ischemia. Recommend serial Troponin testing be performed. Performed By: #### 6 873-4, 48277-0, 28371-9, CMP, 69321-1, HA1C, CBCA #### [facility] ([id number]) [address], [address] [place] [address] Troponin I.cardiac [Mass/Vol] 0.75 ng/mL Critically high 0.00-0.04 [facility] Comment on above: Result Comment: Concentrations greater than or equal to 0.05 ng/ml are considered elevated. Elevations of Troponin may be due to causes other than myocardial ischemia. Recommend serial Troponin testing be performed. Performed By: #### 6 873-4, 50639-4, 96668-6, CMP, 06348-2, HA1C, CBCA #### [facility] ([id number]) Formerly [facility], [address] [address] Troponin I.cardiac [Mass/Vol] 1.53 ng/mL Critically high 0.00-0.04 [facility] Comment on above: Result Comment: Concentrations greater than or equal to 0.05 ng/ml are considered elevated. Elevations of Troponin may be due to causes other than myocardial ischemia. Recommend serial Troponin testing be performed. Performed By: #### 6 873-4, 09605-2, 19491-9, CMP, 13957-6, HA1C, CBCA #### [facility] ([id number]) [address], [facility] [address] [place] [address] Troponin I.cardiac [Mass/Vol] 1.80 ng/mL Critically high 0.00-0.04 [facility] Comment on above: Result Comment: Concentrations greater than or equal to 0.05 ng/ml are considered elevated. Elevations of Troponin may be due to causes other than myocardial ischemia. Recommend serial Troponin testing be performed. Performed By: #### 6 873-4, 11717-4, 15869-2, CMP, 98662-1, HA1C, CBCA #### [facility] ([id number]) [address] [facility], [address] [place] [address] Troponin Ion 07-03-2023 Troponin I.cardiac [Mass/Vol] 0.69 ng/mL Critically high 0.00 - 0.04 ng/mL [facility] Comment on above: Concentrations greater than or equal to 0.05 ng/ml are considered elevated. Elevations of Troponin may be due to causes other than myocardial ischemia. Recommend serial Troponin testing be performed. Troponin I.cardiac [Mass/Vol] 0.75 ng/mL Critically high 0.00 - 0.04 ng/mL [facility] Comment on above: Concentrations greater than or equal to 0.05 ng/ml are considered elevated. Elevations of Troponin may be due to causes other than myocardial ischemia. Recommend serial Troponin testing be performed. Troponin I.cardiac [Mass/Vol] 1.53 ng/mL Critically high 0.00 - 0.04 ng/mL [facility] Comment on above: Concentrations greater than or equal to 0.05 ng/ml are considered elevated. Elevations of Troponin may be due to causes other than myocardial ischemia. Recommend serial Troponin testing be performed. Troponin I.cardiac [Mass/Vol] 1.80 ng/mL Critically high 0.00 - 0.04 ng/mL [facility] Comment on above: Concentrations greater than or equal to 0.05 ng/ml are considered elevated. Elevations of Troponin may be due to causes other than myocardial ischemia. Recommend serial Troponin testing be performed. Troponin I.cardiac [Mass/Vol ]on 07-03-2023 Interpretation and review of laboratory results Abnormal [facility] Interpretation and review of laboratory results Abnormal [facility] Beta hydroxybutyrate [Moles/ Vol]on 07-02-2023 BetaHydroxybutyrate 3.34 mmol/L High 0.02-0.27 [facility] Comment on above: Performed By: #### 6 873-4, ELEC, 2777-1 ####[facility] ([id number])[address] [facility], [address] [place] [address] BetaHydroxybutyrate 8.59 mmol/L High 0.02-0.27 [facility] Comment on above: Performed By: #### 6 873-4, 07480-1, 63856-3, CMP, 98361-0, HA1C, CBCA #### [facility] ([id number]) [address], [address] [place] [address] BetaHydroxybutyrateon 2023 Beta hydroxybutyrate [Moles/Vol] 3.34 mmol/L High 0.02 - 0.27 mmol/L [facility] Beta hydroxybutyrate [Moles/Vol] 8.59 mmol/L High 0.02 - 0.27 mmol/L [facility] Blood gas, venouson 07-02-19 24 Arterial patency Wrist artery --pre arterial puncture [facility] Base deficit (Bld) [Moles/Vol] 26.0 mmol/L High [facility] CO2 (BldV) [Partial pressure] 20.1 mm[Hg] Low [facility] HCO3 (Bld) [Moles/Vol] 4.5 mmol/L Low [facility] Interpretation and review of laboratory results Abnormal [facility] Oxygen (BldV) [Partial pressure] 27 mm[Hg] Low [facility] Oxygen therapy source and amount [CARE] RoomAir [facility] Oxygen/Inspired gas setting [Volume Fraction] Ventilator 21 % [facility] pH (BldV) 6.956 [pH] Low 7.320 - 7.420 [facility] SaO2% Calculated from oxygen partial pressure (BldV) [Mass fraction] 25.0 % Low 80.0 - PINF % [facility] Specimen site Narrative N/A P [facility] Specimen type Nom (Spec) VENOUS [facility] CBC AND AUTO DIFFon 07-02-19 24 ABSOLUTE BASOPHIL 0.2 X10E9/L Normal 0.0-0.2 [facility] Comment on above: Performed By: #### 6 873-4, 05052-8, 94923-1, CMP, 01096-4, HA1C, CBCA #### [facility] ([id number]) [address], [address] [place] [address] ABSOLUTE NEUTROPHIL 16.1 X10E9/L High 1.5-6.6 [facility] Comment on above: Performed By: #### 6 873-4, 30809-9, 89961-9, CMP, 36982-9, HA1C, CBCA #### [facility] ([id number]) [address] [facility], [address] [place] [address] Basophils/100 WBC (Bld) 0.9 % Normal P [facility] Comment on above: Performed By: #### 6 873-4, 29325-5, 66280-0, CMP, 70945-3, HA1C, CBCA #### [facility] ([id number]) [address], [address] [place] [address] Eosinophils (Bld) [#/Vol] 0.0 10*3/uL Normal 0.0-0.4 [facility] Comment on above: Performed By: #### 6 873-4, 82740-8, 93428-9, CMP, 33191-9, HA1C, CBCA #### [facility] ([id number]) [address], [address] [place] [address] Eosinophils/100 WBC (Bld) 0.0 % Normal [facility] Comment on above: Performed By: #### 6 873-4, 28916-9, 67483-2, CMP, 33780-7, HA1C, CBCA #### [facility] ([id number]) [address], [address] [place] [address] Erythrocyte distribution width (RBC) [Ratio] 14.8 % Normal 11.5-15.0 [facility] Comment on above: Performed By: #### 6 873-4, 57804-5, 49293-5, CMP, 95221-3, HA1C, CBCA #### [facility] ([id number]) [address] [address] [place] [address] Hematocrit (Bld) [Volume fraction] 36.5 % Normal 35-47 [facility] Comment on above: Performed By: #### 6 873-4, 82518-6, 94891-1, CMP, 17525-3, HA1C, CBCA #### [facility] ([id number]) [address], [facility] [address] [place] [address] Hemoglobin (Bld) [Mass/Vol] 11.5 g/dL Low 11.7-15.5 [facility] Comment on above: Performed By: #### 6 873-4, 52669-5, 29243-1, CMP, 64810-3, HA1C, CBCA #### [facility] ([id number]) [address], [address] [place] [address] Lymphocytes (Bld) [#/Vol] 1.8 10*3/uL Normal 1.0-3.5 [facility] Comment on above: Performed By: #### 6 873-4, 28332-1, 40002-2, CMP, 20164-9, HA1C, CBCA #### [facility] ([id number]) [address] [address] [place] [address] Lymphocytes/100 WBC (Bld) 9.3 % Normal [facility] Comment on above: Performed By: #### 6 873-4, 66075-4, 71230-4, CMP, 73770-9, HA1C, CBCA #### [facility] ([id number]) [address], [address] [place] [address] MCH (RBC) [Entitic mass] 25.4 pg Low 27-34 [facility] Comment on above: Performed By: #### 6 873-4, 41586-7, 60342-7, CMP, 25943-0, HA1C, CBCA #### [facility] ([id number]) [address], [address] [place] [address] MCHC (RBC) [Mass/Vol] 31.6 g/dL Low 32-36 [facility] Comment on above: Performed By: #### 6 873-4, 22915-8, 72223-8, CMP, 21980-3, HA1C, CBCA #### [facility] ([id number]) [address], [address] [place] [address] MCV (RBC) [Entitic vol] 81 fL Normal 80-100 P [facility] Comment on above: Performed By: #### 6 873-4, 94407-8, 28761-5, CMP, 80603-4, HA1C, CBCA #### [facility] ([id number]) [address], [address] [place] [address] Monocytes (Bld) [#/Vol] 1.1 10*3/uL High 0-0.9 [facility] Comment on above: Performed By: #### 6 873-4, 01487-2, 83830-0, CMP, 41948-5, HA1C, CBCA #### [facility] ([id number]) [address], [address] [place] [address] Monocytes/100 WBC (Bld) 5.7 % Normal [facility] Comment on above: Performed By: #### 6 873-4, 53127-0, 32916-5, CMP, 59216-8, HA1C, CBCA #### [facility] ([id number]) [address], [address] [place] [address] Neutrophils/100 WBC (Bld) 84.1 % Normal [facility] Comment on above: Performed By: #### 6 873-4, 02283-8, 97679-5, CMP, 98908-6, HA1C, CBCA #### [facility] ([id number]) [address], [facility] [address] [place] [address] Platelet mean volume (Bld) [Entitic vol] 7.8 fL Normal 7-12 [facility] Comment on above: Performed By: #### 6 873-4, 70497-7, 13745-2, CMP, 05472-4, HA1C, CBCA #### [facility] ([id number]) [address], [address] [place] [address] Platelets (Bld) [#/Vol] 261 10*3/uL Normal 150-450 [facility] Comment on above: Performed By: #### 6 873-4, 68494-5, 67187-0, CMP, 39738-9, HA1C, CBCA #### [facility] ([id number]) [address], [address] [place] [address] RBC COUNT 4.53 X10E12/L Normal 3.80-5.20 [facility] Comment on above: Performed By: #### 6 873-4, 05132-4, 44373-6, CMP, 19115-4, HA1C, CBCA #### [facility] ([id number]) [address], [address] [place] [address] WBC (Bld) [#/Vol] 19.2 10*3/uL High 4.0-11.0 [facility] Comment on above: Performed By: #### 6 873-4, 39406-3, 15354-9, CMP, 23989-7, HA1C, CBCA #### [facility] ([id number]) [address] [facility], [address] [place] [address] CBC auto differentialon Basophils (Bld) [#/Vol] 0.2 10*3/uL [facility] Basophils/100 WBC (Bld) 0.9 % P [facility] Eosinophils (Bld) [#/Vol] 0.0 10*3/uL [facility] Eosinophils/100 WBC (Bld) 0.0 % [facility] Erythrocyte distribution width (RBC) [Ratio] 14.8 % 11.5 - 15.0 % [facility] Hematocrit (Bld) [Volume fraction] 36.5 % 35 - 47 % [facility] Hemoglobin (Bld) [Mass/Vol] 11.5 g/dL Low 11.7 - 15.5 g/dL [facility] Interpretation and review of laboratory results Abnormal [facility] Lymphocytes (Bld) [#/Vol] 1.8 10*3/uL [facility] Lymphocytes/100 WBC (Bld) 9.3 % [facility] MCH (RBC) [Entitic mass] 25.4 pg Low 27 - 34 pg [facility] MCHC (RBC) [Mass/Vol] 31.6 g/dL Low 32 - 36 g/dL [facility] MCV (RBC) [Entitic vol] 81 fL 80 - 100 fL [facility] Monocytes (Bld) [#/Vol] 1.1 10*3/uL High [facility] Monocytes/100 WBC (Bld) 5.7 % P [facility] Neutrophils (Bld) [#/Vol] 16.1 10*3/uL High [facility] Neutrophils/100 WBC (Bld) 84.1 % [facility] Platelet mean volume (Bld) [Entitic vol] 7.8 fL 7 - 12 fL [facility] Platelets (Bld) [#/Vol] 261 10*3/uL [facility] RBC (Bld) [#/Vol] 4.53 10*6/uL [facility] WBC corrected for nucl RBC Auto (Bld) [#/Vol] 19.2 High [facility] COMPREHENSIVE METABOLIC PANE [employer] 07-02-2023 Albumin [Mass/Vol] 4.0 g/dL Normal 3.2-5.3 [facility] Comment on above: Performed By: #### 6 873-4, 33997-9, 00484-8, CMP, 81894-3, HA1C, CBCA #### [facility] ([id number]) [address], [address] [place] [address] ALP [Catalytic activity/Vol] 93 U/L Normal 39-130 [facility] Comment on above: Performed By: #### 6 873-4, 00035-2, 31191-8, CMP, 81311-0, HA1C, CBCA #### [facility] ([id number]) [address], [address] [place] [address] ALT [Catalytic activity/Vol] 17 U/L Normal 0-31 [facility] Comment on above: Performed By: #### 6 873-4, 10918-0, 29679-9, CMP, 82435-9, HA1C, CBCA #### [facility] ([id number]) [address], [address] [place] [address] Anion gap [Moles/Vol] 20 mmol/L High 5-15 [facility] Comment on above: Performed By: #### 6 873-4, 25286-0, 48118-1, CMP, 10463-6, HA1C, CBCA #### [facility] ([id number]) [address], [address] [place] [address] AST [Catalytic activity/Vol] 25 U/L Normal 0-41 [facility] Comment on above: Performed By: #### 6 873-4, 36455-2, 48348-6, CMP, 04426-2, HA1C, CBCA #### [facility] ([id number]) [address], [address] [place] [address] Bilirubin [Mass/Vol] 0.2 mg/dL Low 0.3-1.2 [facility] Comment on above: Performed By: #### 6 873-4, 08753-1, 76437-8, CMP, 58613-2, HA1C, CBCA #### [facility] ([id number]) [address], [address] [place] [address] Calcium [Mass/Vol] 7.0 mg/dL Low 8.5-10.5 [facility] Comment on above: Performed By: #### 6 873-4, 69204-7, 32212-8, CMP, 93413-2, HA1C, CBCA #### [facility] ([id number]) [address], [address] [place] [address] Chloride [Moles/Vol] 116 mmol/L High 98-109 [facility] Comment on above: Performed By: #### 6 873-4, 73177-4, 98877-9, CMP, 74081-5, HA1C, CBCA #### [facility] ([id number]) [address], [address] [place] [address] CO2 [Moles/Vol] 5 mmol/L Critically low 22-32 [facility] Comment on above: Performed By: #### 6 873-4, 54091-9, 70275-9, CMP, 79563-2, HA1C, CBCA #### [facility] ([id number]) [address], [address] [place] [address] Creatinine [Mass/Vol] 0.71 mg/dL Normal 0.40-1.00 [facility] Comment on above: Result Comment: METH OD TRACEABLE TO IDMS STANDARD Performed By: #### 6 873-4, 73761-2, 80023-1, CMP, 20266-4, HA1C, CBCA #### [facility] ([id number]) [address], [address] [place] [address] eGFR (CKD-EPI) NON-RACE DEPENDENT >90 Normal >59 [facility] Comment on above: Result Comment: Reported eGFR is based on the CKD-EPI 2020 equation that does not use a race coefficient. Performed By: #### 6 873-4, 85987-6, 93665-8, CMP, 72199-0, HA1C, CBCA #### [facility] ([id number]) [address], [address] [place] [address] Glucose [Mass/Vol] 260 mg/dL High 65-99 [facility] Comment on above: Performed By: #### 6 873-4, 40967-6, 38777-9, CMP, 05404-3, HA1C, CBCA #### [facility] ([id number]) [address], [address] [place] [address] Potassium [Moles/Vol] 4.6 mmol/L Normal 3.5-5.0 [facility] Comment on above: Performed By: #### 6 873-4, 42266-6, 01490-9, CMP, 09088-2, HA1C, CBCA #### [facility] ([id number]) [address], [address] [place] [address] Protein [Mass/Vol] 6.4 g/dL Normal 6.0-8.0 [facility] Comment on above: Performed By: #### 6 873-4, 04300-5, 80269-1, CMP, 95339-9, HA1C, CBCA #### [facility] ([id number]) [address], [address] [place] [address] Sodium [Moles/Vol] 141 mmol/L Normal 134-146 [facility] Comment on above: Performed By: #### 6 873-4, 53475-8, 06312-3, CMP, 95822-4, HA1C, CBCA #### [facility] ([id number]) [address] [facility], [address] [place] [address] Urea nitrogen [Mass/Vol] 16 mg/dL Normal 5-23 [facility] Comment on above: Performed By: #### 6 873-4, 24326-3, 35556-3, CMP, 59829-7, HA1C, CBCA #### [facility] ([id number]) [address] [facility], [address] [place] [address] Coding Summaryon 07-02-2023 Coding Summary HTMLBase 64 GtpinaduZCr2hQb+PGhl YWQ+XF9FNLAbC26yuZLt hT3lE1SZEPfEHwkeUSJZ FEuTBwHlubPzVT2mjKEa ZXJu IC8+GE1pERUhMzfpbFHs c9L3gDC1U14fmf2jRVbm tDN7FZGvFdLvteqip6me iVi8BDzxTwnbAqEy QRYgtJ57UHR4bW69Jq94 yJOdvRSgg2gqrBa5CzKm MBFwVIZ4uRoyMSnrc8Xq FCVhS56iyZLfq2Z7 IGNvbGxhcHNlOyBlbXB0 mT8nZQxuovurh7hxmllq Ypr6ef57xRWlh2X9nVK2 Q2PcshP0WMUdtKNd MuarnKRTkP3uhizzu0nk oympVzIlXZCxZYc1RGo4 RUVkhUrvQcKtVO72NKD3 RYVaikSiF1HaDWUr oTaqCiP1b9P9Wp7AY0BV FckpW1OXKARDLZadjGC+ KC62pz56M6PsTgqrXcw7 KRUpVDD6pRN9iK8h IPCnBWxml7D9pLK0A3Sw ksNskf4yf2jzNXHmKTpi L54ilUXie0T3IYBwvSZ3 XNSagQtlAsButU76 Oyc+RFYgtSvpv2ZqRkfr w9iiq0mfrRr5YzjiYVGe qlCpkVzvFRG8u0MgSs4p WOPygYT4fGY1sP9u MfWlReT6GSdjS107KyRr kPWbGspuT61xI2HiaYB+ BIWdItb4XTOzwHyfQL5f M1SvCUImhcubkCBj nTrxKE6fLHDnilxfSLSm iV9aSBFtG0f1UoJuCqQ2 YImeJ6DjNAAsohmsAy34 tJ7hSaJsQrC7ZTjh Y6SgceD5EZUrdNKoGYsm NJC2P55tk8E3MWTuPXZr APL6xJS3gY8hzHkbligk bGVmdDsgdmVydGlj HNmlCNdeY161ENNotEvs PkNvZGluZyBEYXRlOiAg MDEvMDMvMjAyNDwvdGQ+ GTGfEOO6tJkwODIs cRChHMkuTj6rrOgwoNtw IW2sPCYudvaxUPZgyO7l XEGfqNOkbNkhPE1qVEYd dxtgl315SoPaMXB9 OQTtmWDzM9AyrN8nPsPf EWYtSIEpS1CawXUvLZcx H875JYpeZnH6ESOzscZe M8NoEROlcOtrSuF2 k8E6Jl4Pp9XjhfeyF3Fv tBAtZiPmBvznEHa9P9Qg PjwvdHI+LB24FRDoKJ72 APk9MCH8oLrhVXfb IKMkN6JowJ3tDrAsOOFu ZGRkOyc+PHRhYmxlIHdp ZHRoPScxMDAlJyBzdHls BQ3hAx9wJXXoHONt wNzrpAGvLzPjd2jsZGPa YXlaFN7gpFhmE4PerZL4 ZURwn4w8Jc80W87zT9Ur dXA+INZqzWI0cXF9 uU4jWjQbKcC1VCriD403 DtJmcZUiAcfhy8zvb3rg xOl5FqZ0LHEahdNbcZxj CUH5t4NcXg90R07h IHdpZHRoPSIxNSUiIHZh mUbvzu4iuN4jZq3+PGNv pGN4yAS8wM3cMrCmLyO0 DOfrO581BhRehAGl Scnxk8fzu7mppIs2EkWt VJZgnzLcuDnxFBE5j4Yy Jm16Z6DseDvlx4JzUul8 cr57zNFkr4C6dYN6 Q9XsIYWbaytjoIIveWpt PQ0uUUDjxzvdTJSwlK5r RNHrJ9m6AkPiQwU0FRpr A5ObaqO2HUCxmZTu DPHhvJXYzL1ifprxi5os xcqxDeVlWPWhVPo0VMe8 EASyhDugEeZiXVD7WhW3 QSF3nFRgbK1xeOdm pioykW5fHbz+VOK5xUFl fHQLYQ1zMxceaJU+PHRk AWS6zCdmUWfmRGHidW0v ZWDpS9m1PmVfJmI1 NSncH8UayxP8PFPhcQOg BQKktXARsO0vsjwbm5vw tubkVjGjUFQeAEi5RWc4 LWFsaWduOiBsZWZ0 HeN8LFO6nPLvbJ1ubZqe ololmN0iGwe+QmlydGgg PBX8XCn3T2WaOrw1FXKl yJdkSJ1uyASeFBcz Tw3cfIczvZhoJW5xEVKk oeojt233BzIuq9fcHWNe dQUjXBxqRIO4G55ea6M2 WAQcONWhWGR5xPD1 vQ4jxVarxefcnWCyfAzo xuQxvFxoCTzrCAjfS687 CPXrcGtlKsXfKRl7Z6Dv Plp6HIZrgFvqSY5a hMHqHLirEf4vbQpqkRaq EB6yFVYmhhnjj784TkRg j4hbFROkwQGyELzyPNS6 E65bq3K9BBXtWGHc OUJ3cEK8gI2ghKurimut bGVmdDsgdmVydGljYWwt EElqQ857DJPgrDysYmEe xAy5V1OvZai8HNPg kFtjDR8xhEKkOHeoBc7s rSlnhMuuZB3qDQFwecpb v910OcSnb9ehBMWpwXIr JJdhZCA0H47xq2E0 VAXvSWZkZQV2zQS0rD7g bGlnbjogbGVmdDsgdmVy xVnsUHtjETdoS335JAOu cDsnPlBhdGllbnQg SGgqCVs7M9WqUtbwaGC+ AB39AGKaCT13hEKpfNAv w5ydbDc1QeRzNHUiEUZ1 kOcmXHfpt7EoFPNq T55foUBrf2D3DFCtzBik eOXqKpAjcQZ8mP1mWAlk ptiku9iexhypMfmhi7mr go33sZ91M01iKBqj ZHRoPSIzMCUiIHZhbGln li3xhM5tPk1+PGNvbCB3 cDJ4yG3jWCMrArG6BCtr I349QzZsgGHiIktb d9yps2djlXw9UzS1XYFz niUngQuhNGI0j8YhYe66 R80bQYweHKWhFSHbOMTt FTYhhFpfxh1wtF8k Ii8+GZFatXI2pPB0zS7c KoLnMxV1ALlyC552XqBu cPDwQurwW66bI5MyzBB+ IKKtJpz7MBWiiSsp AD2qiNCkOEkbJg2tIFN2 DdJhSdGdNCdvU8ZkFKLt abfgrogtvVG5KYChYXTi oF62Ce9btVivBHHu aVMCyU5metkqd3dhzgkv SgXsUZYpMOr5XGz5UMGq bAmrTyCjLQU4RyB5WVD9 pUXkyV0sxBflqtaz rK3xA7XeIIHmasiiAj60 lD2iKmOvLeY3UKsdZqu+ EF9LJEOJPWHGLZuADAVX CDWWEXN2A3CfYql3 DHJjiCozPD2cbFAsCObp Tg0ovCaoiGzcRO3vCWGv rxsjZNJrpE6eFFBsiHJm gBcbLI0gPZIqeqlb e413GvJhHHL9UUOywPIe S1JlnH7qVeYvRABrLXEf K1RqaCCuFIffD249TXxc OgO2ZRZvwbWaF0Tj NVMduVzyToO0y9K9Ey2u Vm2kKJ1gWPagGN46BK61 xTTht0P4lKT4K2AuYMPv zmnvrrledCQ1JSWb XRFiyI07xBHiNTmyLj9y h8O6h017KWCvBQSrkA02 Ew0kjYfwLRVdvHYRqA9i xozea7wwiwofShAd OLSsWLk5AYr8YRMgpOhz UuSnVZO9BqY3FUR3hIYo dJ0fqUucvkatrY2kDvm+ FlUvOGAvudI4L4Wf Zht3FBJarXlaNF9omGSc ZYbvJn7znUewgCifNR7c SGGuvwuvTCXdjN5fOUKq mUSufSfqRV8pJGGb tuspt976WaZgIRZ7YDQa nXNfR2MrdZ3gCwJmWTHv UHVzK1KwdZDfECcoB110 SBuuGxZ8TTGtkpBr E9UqGUZovJnlNeN9h0I3 Dq6HJM9VAMN1Q9OdMaa2 DFCwjNovNK7roQWpKBtg Yk3plIspoIbjPA8l NBGnquylBKXjqV7yFNUe mPVwfIibFB5aEIBhljvd v448TiLqFIH5RVVufFLy F9MjjU5zZaIdDARj WEHsI1KxsTGdHYlwA605 KOugRgY9ALIyjpMxM1Df EGTlvNhqVdU0i0P9Go4J noEcaKildtL3B7Nj PjwvdHI+NI47GEXqXY75 dUPmqGCln6wiaFx5KiYp GHEdTRG5uNhsRNxwv2Fe UOVyB89ilFJhq8D0 IGNvbGxhcHNlOyBlbXB0 nO9cFEletyloy2nuqzqk Bqlci8usgr63hB97L44o IHdpZHRoPSIzMCUi YVAlxYsmso0mhO7jIl1+ YBEujLB0xSY4oJ4tJkEs SnD9YDflV634TxSvoMDj Qutdf5gms8tdjHl3 IjIwJSIgdmFsaWduPSJ0 j4XtOo33K96lGTobYBIv CLFdPMJkRNRzuGwhsv3t xN3gTb0+WG6wz5yg jd37yJ34oSH+PHRkIHN0 eHxrPKvhLEZwhA6lQRoc OjP2KNGdEnJcmI17xRTg BExfIk0okRdooAbt TK8bPRYidaxmq256XhFq m3opSRShwHKuFNfpJMH0 A12lu3C3LBObCFGlCZD8 zRO0uK4mkGgsbhtf bGVmdDsgdmVydGljYWwt TFqkC314CHFveVmaFlTh gGXvQ7bzvdHMAX5oDmpc dGQ+BHIgYPH6aYhg RFuqSSLnvY0rJCHpH6f8 MiJoGqV6RPfhP3QzqcX9 LZTqsZMmKZIohQVNmB5k omatk8uufzsxPwQf QUAkKCt6IGg5ZIXkcNdb VxDuPYC4FaS0SEK3hGGl lP5czGcxgctiuF6qSdu+ RklOOjwvdGQ+PHRk OOY2lWzfUXfwPWBhiB1e FWWtZ8t4MaKePdG3PFuc K0LllfD9VFQijPMbQNEz iDULiZ6kvbpob0nb emriShBoJEQgWPj2IFi0 RPKdeTqlWwUiWKI8BeU7 DYI5xSXmeP6cgJfzafxg jX9iTza+TVJOOjwv dGQ+AZUrGXG7cOruUBss VCKhkU4tPZUmC5m4ZyPp UbM3NNvqP0DedaH3ABKl qFVwHSTdxFTRbN4y titon5ddmdycOhOjPKHa APz9OOj1DRWmoBfjDgGu GPM2DzX1LSC5zXTgeE0f sQauynaxmZ5wGxf+ HBZ0MOV9RT57OL62B7Mq PjwvdGFibGU+PHRhYmxl IHdpZHRoPScxMDAlJyBz nIboKD1kVa3jXYFy LWN (more content not included)... Normal [facility] Comprehensive metabolic pane galileo 07-02-2023 Albumin [Mass/Vol] 4.0 g/dL 3.2 - 5.3 g/dL [facility] ALP [Catalytic activity/Vol] 93 U/L 39 - 130 U/L [facility] ALT No additional P-5'-P [Catalytic activity/Vol] 17 U/L 0 - 31 U/L [facility] Anion gap [Moles/Vol] 20 mmol/L High 5 - 15 mmol/L [facility] AST [Catalytic activity/Vol] 25 U/L 0 - 41 U/L [facility] Bilirubin [Mass/Vol] 0.2 mg/dL Low 0.3 - 1 .2 mg/dL [facility] Calcium [Mass/Vol] 7.0 mg/dL Low 8.5 - 10. 5 mg/dL [facility] Chloride [Moles/Vol] 116 mmol/L High 98 - 10 9 mmol/L [facility] CO2 [Moles/Vol] 5 mmol/L Critically low 22 - 32 mmol/L [facility] Creatinine [Mass/Vol] 0.71 mg/dL 0.40 - 1.00 mg/dL [facility] Comment on above: METHOD TRACEABLE TO IDMS STANDARD eGFR (CKD-EPI)non-race dependent - PINF [facility] Comment on above: Reported eGFR is based on the CKD-EPI 2020 equation that does not use a race coefficient. Glucose [Mass/Vol] 260 mg/dL High 65 - 99 mg/dL [facility] Potassium [Moles/Vol] 4.6 mmol/L 3.5 - 5.0 mmol/L [facility] Protein [Mass/Vol] 6.4 g/dL 6.0 - 8.0 g/dL [facility] Sodium [Moles/Vol] 141 mmol/L 134 - 146 mmol/L [facility] Urea nitrogen [Mass/Vol] 16 mg/dL 5 - 23 mg/d L [facility] ELECTROLYTESon 07-02-2023 Anion gap [Moles/Vol] 13 mmol/L Normal 5-15 [facility] Comment on above: Performed By: #### 6 873-4, ELEC, 2776-06 ####[facility] ([id number])[address], [address], [place] [address] Chloride [Moles/Vol] 118 mmol/L High 98-109 [facility] Comment on above: Performed By: #### 6 873-4, ELEC, 2776-06 ####[facility] ([id number])[address], [address], [place] [address] CO2 [Moles/Vol] 9 mmol/L Critically low 22-32 [facility] Comment on above: Performed By: #### 6 873-4, ELEC, 2776-06 ####[facility] ([id number])[address], [address] [place] [address] Potassium [Moles/Vol] 3.5 mmol/L Normal 3.5-5.0 [facility] Comment on above: Performed By: #### 6 873-4, ELEC, 2776- ####[facility] ([id number])[address], [address] [address] Sodium [Moles/Vol] 140 mmol/L Normal 134-146 [facility] Comment on above: Performed By: #### 6 873-4, ELEC, 2777-1 ####[facility] ([id number])[address], [place] [address] Electrolyte panelon 07-02-19 24 Anion gap [Moles/Vol] 13 mmol/L 5 - 15 mmol/L [facility] Chloride [Moles/Vol] 118 mmol/L High 98 - 10 9 mmol/L [facility] CO2 [Moles/Vol] 9 mmol/L Critically low 22 - 32 mmol/L [facility] Potassium [Moles/Vol] 3.5 mmol/L 3.5 - 5.0 mmol/L [facility] Sodium [Moles/Vol] 140 mmol/L 134 - 146 mmol/L [facility] Glucose Glucometer (BldC) [M ass/Vol]on 07-02-2023 Glucose [Mass/Vol] 237 mg/dL High 65-99 [facility] Glucose [Mass/Vol] 287 mg/dL High 65-99 [facility] Glucose [Mass/Vol] 233 mg/dL High 65 - 99 mg/dL [facility] Interpretation and review of laboratory results Abnormal [facility] Glucose [Mass/Vol] 247 mg/dL High 65-99 [facility] Glucose [Mass/Vol] 237 mg/dL High 65 - 99 mg/dL [facility] Interpretation and review of laboratory results Abnormal [facility] Glucose [Mass/Vol] 287 mg/dL High 65 - 99 mg/dL [facility] Interpretation and review of laboratory results Abnormal [facility] Glucose [Mass/Vol] 254 mg/dL High 65-99 [facility] Glucose [Mass/Vol] 255 mg/dL High 65-99 [facility] Glucose [Mass/Vol] 247 mg/dL High 65 - 99 mg/dL [facility] Interpretation and review of laboratory results Abnormal [facility] Glucose [Mass/Vol] 254 mg/dL High 65 - 99 mg/dL [facility] Interpretation and review of laboratory results Abnormal [facility] Glucose [Mass/Vol] 231 mg/dL High 65-99 [facility] Glucose [Mass/Vol] 255 mg/dL High 65 - 99 mg/dL [facility] Interpretation and review of laboratory results Abnormal [facility] Glucose [Mass/Vol] 231 mg/dL High 65 - 99 mg/dL [facility] Interpretation and review of laboratory results Abnormal [facility] HGB A1C (GLYCO-HGB)on 2023 Glucose [Mass/Vol] 398 mg/dL Normal [facility] Comment on above: Performed By: #### 6 873-4, 90292-4, 40130-3, CMP, 57921-4, HA1C, CBCA #### [facility] ([id number]) [address] [place] [address] HbA1c (Bld) [Mass fraction] 15.5 % High 4.4-5.6 [facility] Comment on above: Result Comment: NOTE ADA Guidelines Result HgbA1c Normal : less than 5.7 % Prediabetes : 5.7 % to 6.4 % Diabetes : > 6.4 % Use with caution in patients with abnormal hemoglobin variants as the half-life of red blood cells and in vivo glycation rates are affected. Performed By: #### 6 873-4, 14427-2, 38783-2, CMP, 93774-7, HA1C, CBCA #### [facility] ([id number]) [address] [place] [address] Hemoglobin A1con 07-02-2023 Average glucose Estimated from glycated hemoglobin (Bld) [Mass/Vol] 398 mg/dL [facility] HbA1c (Bld) [Mass fraction] 15.5 % High 4.4 - 5.6 % [facility] Comment on above: NOTE ADA Guidelines Result HgbA1c Normal : less than 5.7 % Prediabetes : 5.7 % to 6.4 % Diabetes : > 6.4 % Use with caution in patients with abnormal hemoglobin variants as the half-life of red blood cells and in vivo glycation rates are affected. Interpretation and review of laboratory results Abnormal [facility] Lactateon 07-02-2023 Lactate (P denis) [Moles/Vol] 0.8 mmol/L 0.4 - 2.0 mmol/L [facility] Lactate (P denis) [Moles/Vol]o n 07-02-2023 Lactate [Moles/Vol] 0.8 mmol/L Normal 0.4-2.0 [facility] Comment on above: Performed By: #### 6 873-4, 10756-0, 92296-3, CMP, 22565-6, HA1C, CBCA #### [facility] ([id number]) [address] [place] [address] [facility] MAGNESIUMon 07-02-2023 Magnesium [Mass/Vol] 1.7 mg/dL Low 1.8-2.6 [facility] Comment on above: Performed By: #### 6 873-4, 26391-4, 41964-6, CMP, 34608-7, HA1C, CBCA #### [facility] ([id number]) [address] [place] [address] Magnesiumon 07-02-2023 Magnesium [Mass/Vol] 1.7 mg/dL Low 1.8 - 2 .6 mg/dL [facility] Magnesium [Mass/Vol]on 07-02 Interpretation and review of laboratory results Abnormal [facility] No Panel Informationon 07-02 Interpretation and review of laboratory results Abnormal [facility] Interpretation and review of laboratory results Abnormal [facility] PHOSPHORUSon 07-02-2023 Phosphate [Mass/Vol] mg/dL Critically low 2.4-4.9 [facility] Comment on above: Performed By: #### 6 873-4, ELEC, 2777-1 ####[facility] ([id number])[address], [address], [place] [address] Phosphoruson 07-02-2023 Phosphate [Mass/Vol] mg/dL Critically low 2.4 - 4.9 mg/dL [facility] TROPONIN Ion 07-02-2023 Troponin I.cardiac [Mass/Vol] 0.93 ng/mL Critically high 0.00-0.04 [facility] Comment on above: Result Comment: Concentrations greater than or equal to 0.05 ng/ml are considered elevated. Elevations of Troponin may be due to causes other than myocardial ischemia. Recommend serial Troponin testing be performed. Performed By: #### 6 873-4, 73139-5, 48708-7, CMP, 60229-6, HA1C, CBCA #### [facility] ([id number]) [address], [address] [place] [address] Troponin Ion 07-02-2023 Troponin I.cardiac [Mass/Vol] 0.93 ng/mL Critically high 0.00 - 0.04 ng/mL [facility] Comment on above: Concentrations greater than or equal to 0.05 ng/ml are considered elevated. Elevations of Troponin may be due to causes other than myocardial ischemia. Recommend serial Troponin testing be performed. VENOUS BLOOD GASon CAMI'S TEST Normal [facility] Comment on above: Performed By: #### V BG #### [facility] ([id number]) [address] [place] [address] BASE,DEFICIT 26.0 MMOL/L High 0.0-2.0 [facility] Comment on above: Performed By: #### V BG #### [facility] ([id number]) [address] [place] [address] Body temperature 98.6 [degF] Normal 37.0 [facility] Comment on above: Performed By: #### V BG #### [facility] ([id number]) [address] [place] [address] HCO3 (Bld) [Moles/Vol] 4.5 mmol/L Low 20.0-24.0 [facility] Comment on above: Performed By: #### V BG #### [facility] ([id number]) [address] [place] [address] INSP. O2 CONC. 21 % Normal [facility] Comment on above: Performed By: #### V BG #### [facility] ([id number]) [address] [place] [address] Oxygen saturation in Blood 25.0 % Low >80.0 [facility] Comment on above: Performed By: #### V BG #### [facility] ([id number]) [address] [place] [address] OXYGEN SOURCE [employer] [facility] Comment on above: Performed By: #### V BG #### [facility] ([id number]) [address] [place] [address] PCO2, VENOUS 20.1 MMHG Low 35-50 [facility] Comment on above: Performed By: #### V BG #### [facility] ([id number]) [address] [place] [address] PH, VENOUS 6.956 Low 7.320-7.420 [facility] Comment on above: Performed By: #### V BG #### [facility] ([id number]) [address] [place] [address] PO2, VENOUS 27 MMHG Low 30-50 [facility] Comment on above: Performed By: #### V BG #### [facility] ([id number]) [address] [place] [address] SAMPLE SITE N/A Normal [facility] Comment on above: Performed By: #### V BG #### [facility] ([id number]) [address] [place] [address] SAMPLE TYPE VENOUS Normal [facility] Comment on above: Performed By: #### V BG #### [facility] ([id number]) [address] [place] [address] C Bloodon 06-17-2023 C Blood No growth at 5 Days Normal [facility] Comment on above: Performed By: #### 6 [id number] ####[facility] (DEFAULT)[address] [place] [address] Coding Queryon 06-17-2023 Coding Query HIM CODING QUERY FORM Accurate coding and billing requires that the principal diagnosis, secondary diagnosis and procedures be supported by physician documentation and that this documentation be reflected in the discharge summary (if required for patient type). Any time this information is not complete, it is the cotton cleaner?s responsibility to query the physician. Based on medical record review, the following issues have been identified: (XX ) Please complete ED Note. Thank you for your cooperation and timely attention to this matter. Magnolia griffin [Electronically Signed on: 06/26/2023 17:47 EST] Jaun Uribe MD [Verified on: 06/26/2023 17:47 EST] Jaun Uribe MD [Transcribed on: 06/17/2023 15:38 EST] [facility] Provider Orderson 06-17-2023 Provider Orders [id number] [facility] 06-16-2023 Consent Forms [id number]# 1.00[facility] Orderson 06-16-2023 Provider Orders [id number] #1.00[facility] Telemetry Stripson Telemetry Strips [id number] #[facility].00[facility] Acute Hepatitis LCon 023 HBsAg Screen LC Negative Invalid Interpretation Code Negative [facility] Comment on above: Performed By: #### 1 [id number] #### [facility] (DEFAULT) [address] [place] [address] Hep A Ab, IgM LC Negative Invalid Interpretation Code Negative [facility] Comment on above: Performed By: #### 8 [id number] #### [facility] (DEFAULT) [address] [place] [address] Hep B Core Ab, IgM LC Negative Invalid Interpretation Code Negative [facility] Comment on above: Performed By: #### 2 [id number] #### [facility] (DEFAULT) [address] [place] [address] Hepatitis C Ab LC Non-Reactive Invalid Interpretation Code Non Reactive [facility] Comment on above: Result Comment: Perf ormed At: [facility] [address] [id number] Vilma Ho PhD Ph:[phone] Performed By: #### 9 [id number] #### [facility] (DEFAULT) [address] [place] [address] RPR, Rfx Qn RPR/Confirm TP L Con 06-14-2023 RPR LC Non-Reactive Invalid Interpretation Code Non Reactive [facility] Comment on above: Result Comment: Perf ormed At: [facility] [address] [id number] Vilma Ho PhD Ph:[phone] Performed By: #### 2 547337, [id number], [id number] #### [facility] (DEFAULT) [address] [place] [address] .Auto Diff - Auto George % 7 % Normal 07-11 [facility] Comment on above: Performed By: #### 2 021060, [id number], 2471286 #### [facility] (DEFAULT) [address] [place] [address] Baso Abs# 0.0 x10 Normal 0.0-0.2 [facility] Comment on above: Performed By: #### 2 275826, [id number], 5235498 #### [facility] (DEFAULT) [address] [place] [address] Basophils/100 WBC (Bld) 0.4 % Normal 0.2-2.0 [facility] Comment on above: Performed By: #### 2 026261, [id number], 1354616 #### [facility] (DEFAULT) [address] [place] [address]6048 Eos Abs# 0.2 x10 Normal 0.0-0.4 [facility] Comment on above: Performed By: #### 2 397595, [id number], 6783699 #### [facility] (DEFAULT) [address] [place] [address] Eosinophils/100 WBC (Bld) 2.2 % Normal 0.9-4.0 [facility] Comment on above: Performed By: #### 2 562845, [id number], 0809522 #### [facility] (DEFAULT) [address] [place] [address]2765 Lymph Abs# 2.7 x10 Normal 1.3-2.9 [facility] Comment on above: Performed By: #### 2 975434, [id number], 5805193 #### [facility] (DEFAULT) [address] [place] [address]26 Lymphocytes/100 WBC (Bld) 36 % Normal 14-48 [facility] Comment on above: Performed By: #### 2 568913, [id number], 1055622 #### [facility] (DEFAULT) [address] [place] [address] George Abs# 0.5 x10 Normal 0.0-0.8 [facility] Comment on above: Performed By: #### 2 623457, [id number], 6297931 #### [facility] (DEFAULT) [address] [place] [address]4986 Neut Abs# 4.0 x10 Normal 1.5-9.2 [facility] Comment on above: Performed By: #### 2 268456, [id number], 0037288 #### [facility] (DEFAULT) [address] [place] [address]99 Neutrophils/100 WBC (Bld) 54 % Normal 44-88 [facility] Comment on above: Performed By: #### 2 467992, [id number], 3619950 #### [facility] (DEFAULT) [address] [place] [address] [facility] 06-13-2023 eGFR AA >60 Invalid Interpretation Code [facility] Comment on above: Order Comment: While on Insulin Drip Performed By: #### 2 394905, [id number], 3537031 #### [facility] (DEFAULT) [address] [place] [address]6903 eGFR Non AA >60 Invalid Interpretation Code [facility] Comment on above: Order Comment: While on Insulin Drip Performed By: #### 2 134261, [id number], 6311954 #### [facility] (DEFAULT) [address] [place] [address] Anion gap [Moles/Vol] 8.7 mmol/L Normal 5.0-19.0 [facility] Comment on above: Order Comment: While on Insulin Drip Performed By: #### 2 475269, [id number], 0412108 #### [facility] (DEFAULT) [address] [place] [address]252 Calcium [Mass/Vol] 8.0 mg/dL Low 8.9-10.3 [facility] Comment on above: Order Comment: While on Insulin Drip Performed By: #### 2 279577, [id number], 0840718 #### [facility] (DEFAULT) [address] [place] [address]182 Chloride [Moles/Vol] 106 mmol/L Normal 101-111 [facility] Comment on above: Order Comment: While on Insulin Drip Performed By: #### 2 816322, [id number], 2137095 #### [facility] (DEFAULT) [address] [place] [address]690 CO2 [Moles/Vol] 21 mmol/L Normal 21-32 [facility] Comment on above: Order Comment: While on Insulin Drip Performed By: #### 2 652345, [id number], 9032298 #### [facility] (DEFAULT) [address] [place] [address] 13547 Creatinine [Mass/Vol] 0.58 mg/dL Low 0.60-1.30 [facility] Comment on above: Order Comment: While on Insulin Drip Performed By: #### 2 631953, [id number], 5057178 #### [facility] (DEFAULT) [address] [place] [address] 16432 Glucose [Mass/Vol] 388.0 mg/dL High 74.0-118.0 [facility] Comment on above: Order Comment: While on Insulin Drip Performed By: #### 2 089815, [id number], 3996613 #### [facility] (DEFAULT) [address] [place] [address]64 Osmolality 280 mOsm/L Invalid Interpretation Code [facility] Comment on above: Order Comment: While on Insulin Drip Performed By: #### 2 365698, [id number], 3589228 #### [facility] (DEFAULT) [address] [place] [address]9795 Potassium [Moles/Vol] 3.7 mmol/L Normal 3.6-5.1 [facility] Comment on above: Order Comment: While on Insulin Drip Performed By: #### 2 403713, [id number], 4327626 #### [facility] (DEFAULT) [address] [place] [address] 52718 Sodium [Moles/Vol] 132.0 mmol/L Low 136.0-144.0 [facility] Comment on above: Order Comment: While on Insulin Drip Performed By: #### 2 773119, [id number], 8354443 #### [facility] (DEFAULT) [address] [place] [address]352 Urea nitrogen [Mass/Vol] 12 mg/dL Normal 8- [facility] Comment on above: Order Comment: While on Insulin Drip Performed By: #### 2 612129, [id number], 0526292 #### [facility] (DEFAULT) [address] [place] [address] 96011 Urea nitrogen/Creatinine [Mass ratio] 20.6 mg/mg High 4.6-16.2 [facility] Comment on above: Order Comment: While on Insulin Drip Performed By: #### 2 243824, [id number], 3522996 #### [facility] (DEFAULT) [address] [place] [address] 39512 eGFR AA >60 Invalid Interpretation Code [facility] Comment on above: Order Comment: While on Insulin Drip Performed By: #### 2 202780, [id number], 4227896 ####[facility] (DEFAULT)[address] [place] [address] eGFR Non AA >60 Invalid Interpretation Code [facility] Comment on above: Order Comment: While on Insulin Drip Performed By: #### 2 691011, [id number], 7716692 ####[facility] (DEFAULT)[address] [place] [address]26 Anion gap [Moles/Vol] 1.6 mmol/L Low 5.0-19.0 [facility] Comment on above: Order Comment: While on Insulin Drip Performed By: #### 2 976540, [id number], 8628186 ####[facility] (DEFAULT)[address] [place] [address] 18390 Calcium [Mass/Vol] 7.6 mg/dL Low 8.9-10.3 [facility] Comment on above: Order Comment: While on Insulin Drip Performed By: #### 2 137856, [id number], 3395810 ####[facility] (DEFAULT)[address] [place] [address] 12758 Chloride [Moles/Vol] 113 mmol/L High 101-111 [facility] Comment on above: Order Comment: While on Insulin Drip Performed By: #### 2 215767, [id number], 4775210 ####[facility] (DEFAULT)[address] [place] [address] 24458 CO2 [Moles/Vol] 23 mmol/L Normal 21-32 [facility] Comment on above: Order Comment: While on Insulin Drip Performed By: #### 2 692243, [id number], 5665434 ####[facility] (DEFAULT)[address] [place] [address] 87594 Creatinine [Mass/Vol] 0.57 mg/dL Low 0.60-1.30 [facility] Comment on above: Order Comment: While on Insulin Drip Performed By: #### 2 341262, [id number], 7102888 ####[facility] (DEFAULT)[address] [place] [address] 80983 Glucose [Mass/Vol] 234.0 mg/dL High 74.0-118.0 [facility] Comment on above: Order Comment: While on Insulin Drip Performed By: #### 2 422370, [id number], 0476352 ####[facility] (DEFAULT)[address] [place] [address] 46586 Osmolality 275 mOsm/L Invalid Interpretation Code [facility] Comment on above: Order Comment: While on Insulin Drip Performed By: #### 2 854974, [id number], 7639911 ####[facility] (DEFAULT)[address] [place] [address] 03264 Potassium [Moles/Vol] 3.6 mmol/L Normal 3.6-5.1 [facility] Comment on above: Order Comment: While on Insulin Drip Performed By: #### 2 814004, [id number], 6110770 ####[facility] (DEFAULT)[address] [place] [address] Sodium [Moles/Vol] 134.0 mmol/L Low 136.0-144.0 [facility] Comment on above: Order Comment: While on Insulin Drip Performed By: #### 2 506556, [id number], 3932604 ####[facility] (DEFAULT)[address] [place] [address] Urea nitrogen [Mass/Vol] 11 mg/dL Normal 8-26 [facility] Comment on above: Order Comment: While on Insulin Drip Performed By: #### 2 711412, [id number], 9569858 ####[facility] (DEFAULT)[address] [place] [address] Urea nitrogen/Creatinine [Mass ratio] 19.2 mg/mg High 4.6-16.2 [facility] Comment on above: Order Comment: While on Insulin Drip Performed By: #### 2 768223, [id number], 4090630 ####[facility] (DEFAULT)[address] [place] [address] CBC w/ Auto Diffon 3 Erythrocyte distribution width (RBC) [Ratio] 15.1 % High 11.5-15.0 [facility] Comment on above: Performed By: #### 2 294120, [id number], 4045596 #### [facility] (DEFAULT) [address] [place] [address] Hematocrit (Bld) [Volume fraction] 32.3 % Low 33.7-40.4 [facility] Comment on above: Performed By: #### 2 340883, [id number], 8086507 #### [facility] (DEFAULT) [address] [place] [address] Hemoglobin (Bld) [Mass/Vol] 10.6 g/dL Low 11.3-15.9 [facility] Comment on above: Performed By: #### 2 131255, [id number], 6320698 #### [facility] (DEFAULT) [address] [place] [address] 53274 Man Diff? Auto Invalid Interpretation Code [facility] Comment on above: Performed By: #### 2 221570, [id number], 3296015 #### [facility] (DEFAULT) [address] [place] [address] 49046 MCH (RBC) [Entitic mass] 26 pg Normal 24-34 [facility] Comment on above: Performed By: #### 2 348927, [id number], 9210554 #### [facility] (DEFAULT) [address] [place] [address] 53045 MCHC (RBC) [Mass/Vol] 33 g/dL Normal 26-37 [facility] Comment on above: Performed By: #### 2 353414, [id number], [id number] #### [facility] (DEFAULT) [address] [place] [address] 79130 MCV (RBC) [Entitic vol] 78 fL Low 81-100 [facility] Comment on above: Performed By: #### 2 934506, [id number], 4841772 #### [facility] (DEFAULT) [address] [place] [address] 56845 Platelet 320 x10 Normal 138-427 [facility] Comment on above: Performed By: #### 2 574459, [id number], 2907858 #### [facility] (DEFAULT) [address] [place] [address] 11685 Platelet mean volume (Bld) [Entitic vol] 7.2 fL Normal 6.3-10.2 [facility] Comment on above: Performed By: #### 2 250965, [id number], 4268824 #### [facility] (DEFAULT) [address] [place] [address] 60959 RBC 4.14 x10 Normal 3.70-5.30 [facility] Comment on above: Performed By: #### 2 177549, [id number], 5775452 #### [facility] (DEFAULT) [address] [place] [address] 43645 WBC 7.4 x10 Normal 3.5-10.5 [facility] Comment on above: Performed By: #### 2 366678, [id number], 5215232 #### [facility] (DEFAULT) [address] [place] [address] 14052 CMP Standardon 06-13-2023 eGFR Non AA >60 Invalid Interpretation Code [facility] Comment on above: Performed By: #### 2 621362, [id number], 0848275 #### [facility] (DEFAULT) [address] [place] [address] 19916 eGFR AA >60 Invalid Interpretation Code [facility] Comment on above: Performed By: #### 2 886319, [id number], 8010910 #### [facility] (DEFAULT) [address] [place] [address] 87264 Albumin [Mass/Vol] 3.1 g/dL Low 3.5-5.0 [facility] Comment on above: Performed By: #### 2 192086, [id number], 7903070 #### [facility] (DEFAULT) [address] [place] [address] 49097 Albumin/Globulin [Mass ratio] 1.1 {ratio} Low 1.4-2.6 [facility] Comment on above: Performed By: #### 2 433368, [id number], 3756960 #### [facility] (DEFAULT) [address] [place] [address] 28724 Alk Phos 59 IU/L Normal 32-91 [facility] Comment on above: Performed By: #### 2 961883, [id number], 6655133 #### [facility] (DEFAULT) [address] [place] [address] 54206 ALT [Catalytic activity/Vol] 17.0 U/L Normal 14.0-54.0 [facility] Comment on above: Performed By: #### 2 251372, [id number], 1200851 #### [facility] (DEFAULT) [address] [place] [address] 87636 Anion gap [Moles/Vol] 7.7 mmol/L Normal 5.0-19.0 [facility] Comment on above: Performed By: #### 2 286228, 6022574236, 2550912 #### [facility] (DEFAULT) [address] [place] [address] 11438 AST [Catalytic activity/Vol] 15 U/L Normal 15-41 [facility] Comment on above: Performed By: #### 2 124959, [id number], 5792027 #### [facility] (DEFAULT) [address] [place] [address] 05213 Bili Total 0.4 mg/dL Normal 0.3-1.2 [facility] Comment on above: Performed By: #### 2 467721, [id number], 2689164 #### [facility] (DEFAULT) [address] [place] [address] 60647 Calcium [Mass/Vol] 8.1 mg/dL Low 8.9-10.3 [facility] Comment on above: Performed By: #### 2 396432, [id number], 1910669 #### [facility] (DEFAULT) [address] [place] [address] 43123 Chloride [Moles/Vol] 106 mmol/L Normal 101-111 [facility] Comment on above: Performed By: #### 2 328011, [id number], 0542115 #### [facility] (DEFAULT) [address] [place] [address] 85721 CO2 [Moles/Vol] 24 mmol/L Normal 21-32 [facility] Comment on above: Performed By: #### 2 932799, [id number], 0015191 #### [facility] (DEFAULT) [address] [place] [address] 54294 Creatinine [Mass/Vol] 0.49 mg/dL Low 0.60-1.30 [facility] Comment on above: Performed By: #### 2 926374, 1485425892, 4827526 #### [facility] (DEFAULT) [address] [place] [address] 16763 Globulin (S) [Mass/Vol] 2.7 g/dL Normal 1.5-4.3 [facility] Comment on above: Performed By: #### 2 215771, [id number], 0569990 #### [facility] (DEFAULT) [address] [place] [address] 03055 Glucose [Mass/Vol] 128.0 mg/dL High 74.0-118.0 [facility] Comment on above: Performed By: #### 2 854858, [id number], 1906570 #### [facility] (DEFAULT) [address] [place] [address] 07603 Osmolality 269 mOsm/L Invalid Interpretation Code [facility] Comment on above: Performed By: #### 2 786695, [id number], 1004728 #### [facility] (DEFAULT) [address] [place] [address] 52850 Potassium [Moles/Vol] 3.7 mmol/L Normal 3.6-5.1 [facility] Comment on above: Performed By: #### 2 239869, 3391121302, 6179987 #### [facility] (DEFAULT) [address] [place] [address] 56588 Protein [Mass/Vol] 5.8 g/dL Low 6.5-8.1 [facility] Comment on above: Performed By: #### 2 713799, 9390468461, 0086392 #### [facility] (DEFAULT) [address] [place] [address] 20947 Sodium [Moles/Vol] 134.0 mmol/L Low 136.0-144.0 [facility] Comment on above: Performed By: #### 2 535326, [id number], 5315431 #### [facility] (DEFAULT) [address] [place] [address] 48040 Urea nitrogen [Mass/Vol] 11 mg/dL Normal 8-26 [facility] Comment on above: Performed By: #### 2 180679, 3572662779, 5668735 #### [facility] (DEFAULT) [address] [place] [address] 72398 Urea nitrogen/Creatinine [Mass ratio] 22.4 mg/mg High 4.6-16.2 [facility] Comment on above: Performed By: #### 2 366657, [id number], 1881016 #### [facility] (DEFAULT) [address] [place] [address] Case Management Noteon 06-13 Case Management Note [id number]# [facility] 06-13-2023 Consent Forms [id number] #[facility].00[facility] HgbA1c Standardon 06-13-2023 .Hb 13.4 Invalid Interpretation Code [facility] Comment on above: Performed By: #### 1 [id number] ####[facility] (DEFAULT)[address] [place] [address] 71993 .Hgb A1c 2.01 g/dL Invalid Interpretation Code [facility] Comment on above: Performed By: #### 1 [id number] ####[facility] (DEFAULT)[address] [place] [address] 94193 Glucose [Mass/Vol] 407 mg/dL Invalid Interpretation Code [facility] Comment on above: Performed By: #### 1 [id number] ####[facility] (DEFAULT)[address] [place] [address] 56313 HbA1c (Bld) [Mass fraction] 15.8 % High 4.6-6.2 [facility] Comment on above: Performed By: #### 1 [id number] ####[facility] (DEFAULT)[address] [place] [address] 10993 Magnesiumon 06-13-2023 Magnesium [Mass/Vol] 1.87 mg/dL Normal 1.80-2.50 [facility] Comment on above: Performed By: #### 2 460417, [id number], 5641977 #### [facility] (DEFAULT) [address] [place] [address] 83390 Magnesium [Mass/Vol] 1.84 mg/dL Normal 1.80-2.50 [facility] Comment on above: Order Comment: While on Insulin Drip Performed By: #### 2 048590, [id number], 8677680 #### [facility] (DEFAULT) [address] [place], [place] [address] Magnesium [Mass/Vol] 2.02 mg/dL Normal 1.80-2.50 [facility] Comment on above: Order Comment: While on Insulin Drip Performed By: #### 2 949647, 7571253555, 2275125 ####[facility] (DEFAULT)[address] [place] [address] Nutrition Noteon 06-13-2023 Nutrition Note met with [...] (insulin pump); note current A1c 15.9%patient sees police officer crime prevention in [place] monthly (when she is able); encouraged patient to call endo's office to make another appt - also to call customer service at [facility] to get another remote so she can use her pump; ? patient to be sent home with insulin/pens for bg management after discharge; discussed that once patient is stable to have endo send referral to [facility] so she can come see me and vendor manager FELICIA for some diabetes education; unsure if [...] assist prn. ts Pt left AMA. Normal [facility] POCT Glucose Levelon 06-13- 023 Glucose, POC See Comment Invalid Interpretation Code 74118 [facility] Comment on above: Result Comment: Ruperto evans order, remove 1 diane Rodarte in ICU 06/13/2023 08:10:39 EST JW Performed By: #### 4 [id number] #### [facility] (DEFAULT) [address] [place] [address] 90427 Glucose [Mass/Vol] 191 mg/dL High 74-118 [facility] Comment on above: Performed By: #### 2 525784, [id number], 9242083 #### [facility] (DEFAULT) [address] [place] [address] 90769 Glucose [Mass/Vol] 129 mg/dL High 74-118 [facility] Comment on above: Performed By: #### 4 [id number] #### [facility] (DEFAULT) [address] [place] [address] 19032 Glucose [Mass/Vol] 119 mg/dL High 74-118 [facility] Comment on above: Performed By: #### 4 [id number] #### [facility] (DEFAULT) [address] [place] [address] 99398 Glucose [Mass/Vol] 193 mg/dL High 74-118 [facility] Comment on above: Performed By: #### 4 [id number] ####[facility] (DEFAULT)[address] [place] [address] 11062 Glucose [Mass/Vol] 294 mg/dL High 74-118 [facility] Comment on above: Performed By: #### 7 [id number], [id number] #### [facility] (DEFAULT) [address] [place] [address] 15522 Glucose [Mass/Vol] 362 mg/dL High 74-118 [facility] Comment on above: Performed By: #### 7 [id number], [id number] #### [facility] (DEFAULT) [address] [place] [address] 06348 Glucose [Mass/Vol] 234 mg/dL High 74-118 [facility] Comment on above: Performed By: #### 2 704624, 3853819236, 0026760 #### [facility] (DEFAULT) [address] [place] [address] 11661 Glucose [Mass/Vol] 185 mg/dL High 74-118 [facility] Comment on above: Performed By: #### 4 [id number] ####[facility] (DEFAULT)[address] [place] [address] 38704 Glucose [Mass/Vol] 165 mg/dL High 74-118 [facility] Comment on above: Performed By: #### 4 [id number] #### [facility] (DEFAULT) [address] [place] [address] 70712 Phoson 06-13-2023 Phosphate [Mass/Vol] 2.3 mg/dL Low 2.5-4.6 [facility] Comment on above: Performed By: #### 2 607677, [id number], 1882914 #### [facility] (DEFAULT) [address] [place] [address] 00364 Phosphate [Mass/Vol] 2.2 mg/dL Low 2.5-4.6 [facility] Comment on above: Performed By: #### 2 596206, 0951336575, 2259776 ####[facility] (DEFAULT)[address] [place] [address] 14414 Phosphate [Mass/Vol] 2.5 mg/dL Normal 2.5-4.6 [facility] Comment on above: Performed By: #### 2 481199, [id number], 0038808 ####[facility] (DEFAULT)[address] [place] [address] 98016 Progress Note - Nurseon 05-30 Progress Note - Nurse Patient left AMA. Patient wanted to leave today. Dr. Payne wanted to keep her til tomorrow. She is out of her medications. [Electronically Signed on: 06/13/2023 10:30 EST] Aster Bernal RN [Verified on: 06/13/2023 10:30 EST] Aster Bernal RN [facility] Progress Note - Nurse Patient [...] on: 06/13/2023 10:32 EST] Aster Bernal RN [facility] Progress Note - Nurse Patient [...] 06/13/2023 06:55 EST] Zenaida Yarbrough RN Normal [facility] Trigon 06-13-2023 Triglyceride [Mass/Vol] 177.0 mg/dL High 0.0-150.0 [facility] Comment on above: Performed By: #### 2 901021, 1056570292, 7099874 #### [facility] (DEFAULT) [address] [place] [address] .Auto Diff 1on 06-12-2023 Auto George % 2 % Normal 07-11 [facility] Comment on above: Performed By: #### 1 4170944, 9831134573, 9629677071, 0536084078, 2920539, 9725219356, 9468373403, 0399524023, 3639539154 ####[facility] (DEFAULT)[address] [place] [address] Baso Abs# 0.1 x10 Normal 0.0-0.2 [facility] Comment on above: Performed By: #### 1 8330619, 6704273494, 6921488466, 3766551124, 9366914, 0484597918, 4567065679, 0027202960, 2540771065 ####[facility] (DEFAULT)[address] [place] [address] Basophils/100 WBC (Bld) 1.1 % Normal 0.2-2.0 [facility] Comment on above: Performed By: #### 1 9130990, 2359888140, 0763556767, 0424610721, 4338090, 9674318202, 7485645991, 2837272315, 1919604528 ####[facility] (DEFAULT)[address] [place] [address] Eos Abs# 0.0 x10 Normal 0.0-0.4 [facility] Comment on above: Performed By: #### 1 5778449, 4469357701, 5227663710, 1273719699, 3545358, 0513852205, 1429903524, 5702697246, 9871009451 ####[facility] (DEFAULT)[address] [place] [address] 05809 Eosinophils/100 WBC (Bld) 0.6 % Low 0.9-4.0 [facility] Comment on above: Performed By: #### 1 1036517, 3422438380, 0003460123, 8080747879, 7013436, 7768437882, 4741274025, 5421258431, 4270406916 ####[facility] (DEFAULT)[address] [place] [address] 92240 Lymph Abs# 0.9 x10 Low 1.3-2.9 [facility] Comment on above: Performed By: #### 1 4157538, 9557853706, 3876023689, 1566455624, 3774348, 7444086480, 7521657247, 5031398355, 7602976985 ####[facility] (DEFAULT)[address] [place] [address] 09883 Lymphocytes/100 WBC (Bld) 14 % Normal 14-48 [facility] Comment on above: Performed By: #### 1 7557591, 4501131840, 8139274294, 5747994571, 3540094, 2722740009, 3263096613, 2711957804, 8875863775 ####[facility] (DEFAULT)[address] [place] [address] 91951 George Abs# 0.2 x10 Normal 0.0-0.8 [facility] Comment on above: Performed By: #### 1 6506135, 7116912621, 1814939406, 8220584593, 9573543, 5136723006, 7033804944, 8402982253, 6380938456 ####[facility] (DEFAULT)[address] [place] [address] 68966 Neut Abs# 5.6 x10 Normal 1.5-9.2 [facility] Comment on above: Performed By: #### 1 2937211, 4717455376, 6775462672, 7527945591, 7130322, 9278716742, 2049721553, 9416871850, 3313787624 ####[facility] (DEFAULT)[address] [place] [address] 16234 Neutrophils/100 WBC (Bld) 82 % Normal 44-88 [facility] Comment on above: Performed By: #### 1 7580106, 5389018866, 0207669736, 1015886540, 8276663, 2590009578, 6114436132, 8243666241, 3255000288 ####[facility] (DEFAULT)[address] [place] [address] 22546 Arterial Blood Gas Standardo n 06-12-2023 Base Excess Art -17.3 mmol/L Low -3.3-2.3 [facility] Comment on above: Performed By: #### 2 032118, 0003495075, 3847564 #### [facility] (DEFAULT) [address] [place] [address] 00972 Breakpoint Hemo Normal [facility] Comment on above: Performed By: #### 2 950570, 4130022592, 6230770 #### [facility] (DEFAULT) [address] [place] [address] 13261 Device Room Air Normal [facility] Comment on above: Performed By: #### 2 258512, 3534152015, 0887006 #### [facility] (DEFAULT) [address] [place] [address] 05056 Fio2 Art 21.0 % Normal 21.0-100.0 [facility] Comment on above: Performed By: #### 2 553277, 9500076225, 4362003 #### [facility] (DEFAULT) [address] [place] [address] 24766 HCO3 (Bld) [Moles/Vol] 9.4 mmol/L Low 22.0-27.0 [facility] Comment on above: Performed By: #### 2 401754, 0705551374, 2278051 #### [facility] (DEFAULT) [address] [place] [address] 12910 Oxygen saturation in Blood 97.8 % Normal 95.0-100.0 [facility] Comment on above: Performed By: #### 2 812297, 2664487918, 0867470 #### [facility] (DEFAULT) [address] [place] [address] 45206 pCO2 Art 25 mmHg Low 34-44 [facility] Comment on above: Performed By: #### 2 837590, 0206779273, 8618052 #### [facility] (DEFAULT) [address] [place] [address] 30995 pH Art 7.18 Critically abnormal 7.37-7.44 [facility] Comment on above: Result Comment: Resu lts handed to Dr Uribe by on 06/12/2023 @ 1302, RBD Performed By: #### 2 441778, 2611149155, 3821721 #### [facility] (DEFAULT) [address] [place] [address] 13209 pO2 Art 118 mmHg High 75-100 [facility] Comment on above: Performed By: #### 2 133345, 2202674328, 5998308 #### [facility] (DEFAULT) [address] [place] [address] 68030 Puncture Site Right Brachial Normal [facility] Comment on above: Performed By: #### 2 301237, 7943549202, 1930913 #### [facility] (DEFAULT) [address] [place] [address] 26305 Rate: 20 Invalid Interpretation Code [facility] Comment on above: Performed By: #### 2 084927, 1877174406, 0078778 #### [facility] (DEFAULT) [address] [place] [address] 06181 BMP Standardon 06-12-2023 eGFR Non AA >60 Invalid Interpretation Code [facility] Comment on above: Order Comment: While on Insulin Drip Performed By: #### 2 168880, 4068934896, 7881593 #### [facility] (DEFAULT) [address] [place] [address] 03344 eGFR AA >60 Invalid Interpretation Code [facility] Comment on above: Order Comment: While on Insulin Drip Performed By: #### 2 337981, 5708653755, 2937545 #### [facility] (DEFAULT) [address] [place] [address] 71985 Anion gap [Moles/Vol] 7.9 mmol/L Normal 5.0-19.0 [facility] Comment on above: Order Comment: While on Insulin Drip Performed By: #### 2 612762, 6809109305, 9708210 #### [facility] (DEFAULT) [address] [place] [address] 51677 Calcium [Mass/Vol] 7.7 mg/dL Low 8.9-10.3 [facility] Comment on above: Order Comment: While on Insulin Drip Performed By: #### 2 393219, 6142965753, 6738373 #### [facility] (DEFAULT) [address] [place] [address] 78955 Chloride [Moles/Vol] 110 mmol/L Normal 101-111 [facility] Comment on above: Order Comment: While on Insulin Drip Performed By: #### 2 826546, 4418246151, 1720468 #### [facility] (DEFAULT) [address] [place] [address] 78704 CO2 [Moles/Vol] 19 mmol/L Low 21-32 [facility] Comment on above: Order Comment: While on Insulin Drip Performed By: #### 2 141301, 3380014510, 0554911 #### [facility] (DEFAULT) [address] [place] [address] 59378 Creatinine [Mass/Vol] 0.90 mg/dL Normal 0.60-1.30 [facility] Comment on above: Order Comment: While on Insulin Drip Performed By: #### 2 321766, 6231143964, 7148385 #### [facility] (DEFAULT) [address] [place] [address] 31299 Glucose [Mass/Vol] 361.0 mg/dL High 74.0-118.0 [facility] Comment on above: Order Comment: While on Insulin Drip Performed By: #### 2 217662, 8979407936, 1273131 #### [facility] (DEFAULT) [address] [place] [address] 46282 Osmolality 280 mOsm/L Invalid Interpretation Code [facility] Comment on above: Order Comment: While on Insulin Drip Performed By: #### 2 070690, 8609010821, 4155078 #### [facility] (DEFAULT) [address] [place] [address] 52557 Potassium [Moles/Vol] 3.9 mmol/L Normal 3.6-5.1 [facility] Comment on above: Order Comment: While on Insulin Drip Performed By: #### 2 289901, 8853726009, 6839308 #### [facility] (DEFAULT) [address] [place] [address] 64024 Sodium [Moles/Vol] 133.0 mmol/L Low 136.0-144.0 [facility] Comment on above: Order Comment: While on Insulin Drip Performed By: #### 2 060085, 8060094269, 6511805 #### [facility] (DEFAULT) [address] [place] [address] 38474 Urea nitrogen [Mass/Vol] 11 mg/dL Normal 8-26 [facility] Comment on above: Order Comment: While on Insulin Drip Performed By: #### 2 831807, 8189086534, 9805029 #### [facility] (DEFAULT) [address] [place] [address] Urea nitrogen/Creatinine [Mass ratio] 12.2 mg/mg Normal 4.6-16.2 [facility] Comment on above: Order Comment: While on Insulin Drip Performed By: #### 2 717475, 3360379490, 7034520 #### [facility] (DEFAULT) [address] [place] [address] 80821 Breakpoint Chem Normal [facility] Comment on above: Performed By: #### 1 8953157, 3965643223, 4523059702, 1247306831, 8023007, 5667813722, 7449736287, 0165769909, 9177911375 ####[facility] (DEFAULT)[address] [place] [address] 83099 eGFR Non AA >60 Invalid Interpretation Code [facility] Comment on above: Performed By: #### 1 7698024, 6013940231, 0401929341, 2436145571, 6612701, 4315103477, 4320549741, 2819353798, 6463340748 ####[facility] (DEFAULT)[address] [place] [address] 76754 eGFR AA >60 Invalid Interpretation Code [facility] Comment on above: Performed By: #### 1 2181416, 0735985716, 7655892334, 7271478351, 7312111, 2815448380, 8953107265, 3754497840, 6311370668 ####[facility] (DEFAULT)[address] [place] [address] 44664 Anion gap [Moles/Vol] 21.7 mmol/L High 5.0-19.0 [facility] Comment on above: Performed By: #### 1 4463145, 2364664475, 5589313159, 0165182624, 9156622, 3867221997, 3825797714, 7707248258, 6031288018 ####[facility] (DEFAULT)[address] [place] [address] 30160 Osmolality 286 mOsm/L Invalid Interpretation Code [facility] Comment on above: Performed By: #### 1 3886810, 7584601335, 3564112322, 7200319932, 5276464, 3197551355, 7393439779, 3246581634, 6853732032 ####[facility] (DEFAULT)[address] [place] [address] 08041 Urea nitrogen/Creatinine [Mass ratio] 15.0 mg/mg Normal 4.6-16.2 [facility] Comment on above: Performed By: #### 1 9962970, 3990857205, 9593192153, 6024881563, 1593869, 1890775025, 8387046390, 2616541828, 1394089483 ####[facility] (DEFAULT)[address] [place] [address] 60142 Calcium [Mass/Vol] 8.6 mg/dL Low 8.9-10.3 [facility] Comment on above: Performed By: #### 1 8911260, 3281973502, 9825823850, 7447291915, 4070799, 1177689183, 5808079536, 8135404534, 4885382320 ####[facility] (DEFAULT)[address] [place] [address] Chloride [Moles/Vol] 96 mmol/L Low 101-111 [facility] Comment on above: Performed By: #### 1 1565110, 3229297946, 7392694723, 4135686507, 0065757, 7113520063, 0582405288, 4480262869, 8688876242 ####[facility] (DEFAULT)[address] [place] [address] 30181 CO2 [Moles/Vol] 12 mmol/L Low 21-32 [facility] Comment on above: Performed By: #### 1 3035078, 8917844686, 5847794337, 0624128903, 2710979, 1456042561, 0419048464, 3081499317, [id number] ####[facility] (DEFAULT)[address] [place] [address] 44845 Creatinine [Mass/Vol] 0.93 mg/dL Normal 0.60-1.30 [facility] Comment on above: Performed By: #### 1 3430389, 1631185580, 9748735816, 9925682266, 2634694, 5214122353, 7096725846, 1241380063, 2355742661 ####[facility] (DEFAULT)[address] [place] [address] 84851 Glucose [Mass/Vol] 708.0 mg/dL Critically abnormal 74.0-118.0 [facility] Comment on above: Result Comment: Crit ical result GLU 708 mg/dL called to and read back by jony sykes rn at 12-Jun-2023 13:52 by Frank. Performed By: #### 1 1942327, 9669681027, 8781124208, 9874460643, 0157692, 7732423470, 6182038511, 5919901039, 1957952494 ####[facility] (DEFAULT)[address] [place] [address] Potassium [Moles/Vol] 4.7 mmol/L Normal 3.6-5.1 [facility] Comment on above: Performed By: #### 1 3232758, 1829025648, 9151726403, 7219127850, 1922080, 7279100294, 8296234877, 7039767809, 5766417499 ####[facility] (DEFAULT)[address] [place] [address] Sodium [Moles/Vol] 125.0 mmol/L Low 136.0-144.0 [facility] Comment on above: Performed By: #### 1 2272332, 5605571119, 4338601258, 7698214522, 8241968, 7555317004, 8444900447, 6674935069, 0069876840 ####[facility] (DEFAULT)[address] [place] [address] Urea nitrogen [Mass/Vol] 14 mg/dL Normal 8-26 [facility] Comment on above: Performed By: #### 1 6202107, 4350837520, 5806308266, 7111326923, 9891716, 2231615215, 6113611612, 9246112058, 5247421021 ####[facility] (DEFAULT)[address] [place] [address] CBC w/ Auto Diffon 3 Erythrocyte distribution width (RBC) [Ratio] 15.0 % Normal 11.5-15.0 [facility] Comment on above: Performed By: #### 1 5234441, 5481499354, 2551918155, 7832311913, 3287882, 6668223189, 6773640979, 8918040589, 8579101885 ####[facility] (DEFAULT)[address] [place] [address] Hematocrit (Bld) [Volume fraction] 39.0 % Normal 33.7-40.4 [facility] Comment on above: Performed By: #### 1 2115088, 5686712631, 7814106545, 9747193455, 1773809, 5533027799, 8714488324, 9346727904, 5481990591 ####[facility] (DEFAULT)[address] [place] [address] Hemoglobin (Bld) [Mass/Vol] 12.3 g/dL Normal 11.3-15.9 [facility] Comment on above: Performed By: #### 1 4982552, 7211391597, 2071068312, 9767963609, 3162035, 1625083704, 0086075472, 0805701202, 7630950775 ####[facility] (DEFAULT)[address] [place] [address] Man Diff? Auto Invalid Interpretation Code [facility] Comment on above: Performed By: #### 1 0769697, 8887646390, 8525710909, 5031663944, 8646475, 4891809766, 6892550213, 9921761528, 3169776866 ####[facility] (DEFAULT)[address] [place] [address] 58512 MCH (RBC) [Entitic mass] 26 pg Normal 24-34 [facility] Comment on above: Performed By: #### 1 5475596, 2538456044, 7758367810, 9148506498, 2713975, 0317685948, 8363644694, 1901450258, 9395280808 ####[facility] (DEFAULT)[address] [place] [address] 30665 MCHC (RBC) [Mass/Vol] 32 g/dL Normal 26-37 [facility] Comment on above: Performed By: #### 1 1243723, 3836585366, 7498552041, 1764147146, 7615202, 8135054971, 4077747039, 9041335666, 1306856874 ####[facility] (DEFAULT)[address] [place], [place] [address] MCV (RBC) [Entitic vol] 82 fL Normal 81-100 [facility] Comment on above: Performed By: #### 1 3164473, 4176534220, 5200998168, 9148548334, 3833649, 4055822179, 0887958124, 6902197333, 4468997594 ####[facility] (DEFAULT)[address] [place] [address] 21127 Platelet 393 x10 Normal 138-427 [facility] Comment on above: Performed By: #### 1 1035444, 1163988332, 5625763272, 8610705834, 3891801, 6048054447, 1015348145, 1821009209, 1027896828 ####[facility] (DEFAULT)[address] [place] [address] 76924 Platelet mean volume (Bld) [Entitic vol] 7.9 fL Normal 6.3-10.2 [facility] Comment on above: Performed By: #### 1 3444477, 7339065417, 3868827356, 5450491838, 3168656, 4222300416, 9177872369, 2636245649, 5311774505 ####[facility] (DEFAULT)[address] [place] [address] 72186 RBC 4.73 x10 Normal 3.70-5.30 [facility] Comment on above: Performed By: #### 1 9829845, 2277227834, 8376564085, 4077337698, 3934098, 8264649473, 8190647673, 0418826870, 4884879163 ####[facility] (DEFAULT)[address] [place] [address] 36813 WBC 6.9 x10 Normal 3.5-10.5 [facility] Comment on above: Performed By: #### 1 9967863, 8030494613, 4483797562, 0970477878, 3672110, 3966885476, 8957911104, 2240683762, 7153322580 ####[facility] (DEFAULT)[address] [place] [address] 31922 ED Clinical Summaryon 2022 ED Clinical Summary [facility] - Emergency Department [address] [place] [address] 62842 ED Clinical Summary PERSON INFORMATION Name: DOUGLAS CORDOVA Age: 28 Years Sex: FEMALE : 1995 MRN: Acct#: Visit Reason: Increased blood sugar; Vomiting; DKA Arrival: 06/12/2023 12:23:19 Discharge: LOS: 000 03:18 Check In: 06/12/2023 12:23:19 Checkout:06/12/2023 15:41:26 Address: [address] [facility] [address] PCP: ARCADIO IGLESIAS PROVIDER INFORMATION Provider Role [...] iver verbalizes understanding of instructions given Comment: [facility] Patient Education Noteon 06-12-2023 ED Patient Education Note Education Materials [facility] ED Patient Summaryon 023 ED Patient Summary [facility] - Emergency Department [address] [place] [address] 41387 PATIENT DISCHARGE INSTRUCTIONS Patient Information Name: DOUGLAS CORDOVA Age: 28 Years Date of : 1995 Reason For Visit: Increased blood sugar; Vomiting; DKA Arrival Time: 06/12/2023 12:23:19 Primary Care Physician: ARCADIO IGLESIAS Attending Physician: Maxi Payne MD Comment: Visit Diagnosis: Diagnoses This Visit Diabetic ketoacidosis (E11.10) Increased blood sugar ([id number]- [id number]) Vomiting ([id number]- [id number]) The Pharmacy at [facility] is open Friday through Friday [...] alcohol and/or drug addiction problems; contact the [facility] 20/01 Crisis Hotline -Text 3YEMV er [phone]. If you received any narcotics, sedation, or [...] and treatment you received today in the [facility] Emergency Department were for an urgent problem and are not intended as complete care. It is important for you to follow up with a doctor, nurse practitioner, or physician?s railways assistant for ongoing care. If your symptoms [...] so we can reach you if necessary. [facility] Emergency Department has provided you with a complete list of medications post discharge. Please inform your coke drawer hand/provider of your visit and for further instruction [...] a day. Durable Medical Equipment for Prescription ([employer] DASH PODS (GEN 4) 5PK) change q [...] NO Flui (more content not included)... Normal [facility] Extra [facility] 06-12-2023 Tube Collected Yes Invalid Interpretation Code [facility] Comment on above: Performed By: #### 1 9663844, 3047902302, 8689394037, 7063770506, 5388591, 0927462133, 9118639670, 3098421468, 0237159786 ####[facility] (DEFAULT)[address] [place] [address] 91271 Extra [facility] 06-12-2023 Tube Collected Yes Invalid Interpretation Code [facility] Comment on above: Performed By: #### 2 381309, 0882592772, 6240125 #### [facility] (DEFAULT) [address] [place] [address] 43028 Hepatic Function Panel [facility] 06-12-2023 Albumin/Globulin [Mass ratio] 1.2 {ratio} Low 1.4-2.6 [facility] Comment on above: Performed By: #### 1 5257213, 9223760714, 4846596437, 1504158251, 2868688, 6842791269, 1699872230, 8314683391, 7819770034 ####[facility] (DEFAULT)[address] [place] [address] 31428 Bili Indirect 2.1 mg/dL High 0.2-0.8 [facility] Comment on above: Performed By: #### 1 2818036, 8113567274, 1956595310, 6972159573, 6989391, 9748052521, 9403403103, 1340553383, 5575200646 ####[facility] (DEFAULT)[address] [place] [address] 64882 Globulin (S) [Mass/Vol] 3.6 g/dL Normal 1.5-4.3 [facility] Comment on above: Performed By: #### 1 8269842, 9724022328, 2571308189, 7918882666, 4486293, 4470040070, 0992990277, 8545882602, 6762780015 ####[facility] (DEFAULT)[address] [place] [address] 26795 Albumin [Mass/Vol] 4.6 g/dL Normal 3.5-5.0 [facility] Comment on above: Performed By: #### 1 5487816, 2074327397, 5573391744, 1643126338, 8782649, 0881227558, 8023073567, 5809867966, 4833379397 ####[facility] (DEFAULT)[address] [place] [address] Alk Phos 90 IU/L Normal 32-91 [facility] Comment on above: Performed By: #### 1 8758352, 2103103557, 5429313398, 6156021631, 8761897, 9276156407, 4148663176, 7433930330, 1246927272 ####[facility] (DEFAULT)[address] [place] [address] ALT [Catalytic activity/Vol] 27.0 U/L Normal 14.0-54.0 [facility] Comment on above: Performed By: #### 1 4341259, 2000821864, 2454251123, 8468186692, 1045042, 1266715361, 8818221994, 1321533549, 7592184578 ####[facility] (DEFAULT)[address] [place] [address] AST [Catalytic activity/Vol] 17 U/L Normal 15-41 [facility] Comment on above: Performed By: #### 1 1012862, 3741313987, 6489031589, 6420587167, 8425658, 4792945951, 0730988564, 3008949187, 1649683534 ####[facility] (DEFAULT)[address] [place] [address] Bili Direct 0.10 mg/dL Normal 0.10-0.50 [facility] Comment on above: Performed By: #### 1 8680200, 0319422073, 7744309856, 3351062277, 0078766, 0025389940, 4178025830, 0766275118, 0534840098 ####[facility] (DEFAULT)[address] [place] [address] 18107 Bili Total 2.2 mg/dL High 0.3-1.2 [facility] Comment on above: Performed By: #### 1 4219212, 6064448433, 5150958020, 0708198777, 4117535, 5638137386, 7422575922, 7246090870, 5615708267 ####[facility] (DEFAULT)[address] [place] [address] 47383 Protein [Mass/Vol] 8.2 g/dL High 6.5-8.1 [facility] Comment on above: Performed By: #### 1 7593460, 0291174315, 0189460514, 6835806184, 7130681, 6977803697, 7914398739, 5807637237, 0427049768 ####[facility] (DEFAULT)[address] [place] [address] 17258 Ketone Serumon 06-12-2023 Ketone Serum Negative Normal Negative [facility] Comment on above: Performed By: #### 7 567686966, 6329431989 #### [facility] (DEFAULT) [address] [place] [address] 05569 Lactic Acidon 06-12-2023 Lactic Acid 9.7 mg/dL Normal 4.5-19.8 [facility] Comment on above: Performed By: #### 2 661347 ####[facility] (DEFAULT)[address] [place] [address] 61970 Lipid Panel Standard, Non-Fa stingon 06-12-2023 Cholesterol [Mass/Vol] 285.0 mg/dL High 66.0-200.0 [facility] Comment on above: Performed By: #### 1 7192834, 0963454517, 5842021306, 9760740268, 5820755, 3739885986, 3539924981, 4030084211, 6399638286 ####[facility] (DEFAULT)[address] [place] [address] 75170 Cholesterol in HDL [Mass/Vol] 43 mg/dL Normal 40-71 [facility] Comment on above: Performed By: #### 1 5176193, 8293617293, 0519443917, 7906630136, 3040642, 1567551935, 0311889062, 4699140072, 8507792833 ####[facility] (DEFAULT)[address] [place] [address] 67464 Cholesterol.total/Choles terol in HDL [Mass ratio] 6.6 {ratio} High 0.0-4.5 [facility] Comment on above: Performed By: #### 1 5119379, 5711679658, 4321988206, 6088555254, 1975888, 8006897553, 6981791528, 7422256636, 5953189155 ####[facility] (DEFAULT)[address] [place] [address] 41228 LDL See Comment Invalid Interpretation Code 1100 [facility] Comment on above: Performed By: #### 1 7185690, 2653100131, 5171202314, 4130211498, 5708508, 3145881597, 4769365740, 0185979433, 1710873218 ####[facility] (DEFAULT)[address] [place] [address] 35938 Triglyceride [Mass/Vol] 855.0 mg/dL High 0.0-150.0 [facility] Comment on above: Performed By: #### 1 3330287, 0176894658, 3010834101, 9260551548, 8734772, 7587634008, 2698673401, 5389829735, 6163994014 ####[facility] (DEFAULT)[address] [place] [address] 89945 VLDL. See Comment2 Invalid Interpretation Code 540 [facility] Comment on above: Performed By: #### 1 7823525, 8079205683, 9164498745, 5627211920, 0136483, 2116292321, 9111851590, 3357817281, 0430867460 ####[facility] (DEFAULT)[address] [place] [address] 19248 Magnesiumon 06-12-2023 Magnesium [Mass/Vol] 1.91 mg/dL Normal 1.80-2.50 [facility] Comment on above: Order Comment: While on Insulin Drip Performed By: #### 2 295432, 9863164304, 2772253 #### [facility] (DEFAULT) [address] [place] [address] 79269 POCT Glucose Levelon 023 Glucose [Mass/Vol] 216 mg/dL High [address] [place] [address] Comment on above: Performed By: #### 4 928684190 ####[facility] (DEFAULT)[address] [place] [address] 43733 Glucose [Mass/Vol] 250 mg/dL High [address] [place] [address] Comment on above: Performed By: #### 4 414309493 ####[facility] (DEFAULT)[address] [place] [address] 40738 Glucose [Mass/Vol] 309 mg/dL High [address] [place] [address] Comment on above: Performed By: #### 7 359425471, 6066262565 #### [facility] (DEFAULT) [address] [place] [address] 30232 Glucose [Mass/Vol] 349 mg/dL High [address] [place] [address] Comment on above: Performed By: #### 2 873895, 1257530041, 5609738 #### [facility] (DEFAULT) [address] [place] [address] 42550 Glucose [Mass/Vol] 447 mg/dL Critically abnormal [address] [place] [address] Comment on above: Performed By: #### 4 104742555 ####[facility] (DEFAULT)[address] [place] [address] 73217 Glucose [Mass/Vol] 520 mg/dL Critically abnormal [address] [place] [address] Comment on above: Performed By: #### 4 818125511 ####[facility] (DEFAULT)[address] [place] [address] 87666 Pharmacy Noteon 06-12-2023 Pharmacy Note The following medications(s) has been reviewed for renal dose adjustment per P &T protocol based on the patient's current creatinine clearance: Medication: Enoxaparin 40mg subq daily Estimated CrCl: 86.6 ml/min _ Action: No change required Changes Made: [Electronically Signed on: 06/12/2023 15:41 EST] Emmanuel Hendrix [Verified on: 06/12/2023 15:41 EST] Emmanuel Hendrix [facility] 06-12-2023 Phosphate [Mass/Vol] 2.6 mg/dL Normal 2.5-4.6 [facility] Comment on above: Performed By: #### 2 349875, 3003452852, 0162775 #### [facility] (DEFAULT) [address] [place] [address] 55559 Phosphate [Mass/Vol] 4.1 mg/dL Normal 2.5-4.6 [facility] Comment on above: Order Comment: add o n Performed By: #### 2 549807 ####[facility] (DEFAULT)[address] [place] [address] 24945 Test Urine 1on U Preg Negative [facility] Comment on above: Performed By: #### 3 40359326 ####[facility] (DEFAULT)[address] [place] [address] 10073 U Preg Internal Control Pass [facility] Comment on above: Performed By: #### 3 52828100 ####[facility] (DEFAULT)[address] [place] [address] 88464 Progress Note - Nurseon 05-30 Progress Note - Nurse Dr Payen notifi ed about pt Labs values and asked about currently LR infusion, if he would like to change fluids per the DKA protocol. gave order to keep the current LR infusion. No additional orders given at this time. [Electronically Signed on: 06/12/2023 20:04 EST] Michelle Gallegos RN [Verified on: 06/12/2023 20:04 EST] Michelle Gallegos RN Normal [facility] Rapid HIV.on 06-12-2023 HIV. Negative Normal Negative [facility] Comment on above: Performed By: #### 2 848657, 8492057404, 9997929 #### [facility] (DEFAULT) [address] [place] [address] 69453 Internal Control Pass Normal [facility] Comment on above: Performed By: #### 2 162699, 7358713438, 9819783 #### [facility] (DEFAULT) [address] [place] [address] 52940 TnI HSon 06-12-2023 Troponin I High Sensitivity 87.9 pg/mL Critically abnormal <=15.0 [facility] Comment on above: Result Comment: Crit ical result TNIHS 87.9 pg/mL called to and read back by Elza Gallegos RN at 12-Jun-2023 17:18 by PREET. Performed By: #### 2 910883, 5531985510, 8865737 #### [facility] (DEFAULT) [address] [place] [address] 37293 Troponin I High Sensitivity 109.0 pg/mL Critically abnormal <=15.0 [facility] Comment on above: Result Comment: Crit ical result TNIHS 109.0 pg/mL called to and read back by heath sykes rn at 12-Jun-2023 13:53 by Frank. Performed By: #### 1 0038893, 6168559440, 3990660877, 5867150662, 1817860, 4141731107, 3018230251, 5786827641, 2241348505 ####[facility] (DEFAULT)[address] [place] [address] 47315 Triage Panel 1206-12-2023 Triage Internal Control Pass Normal [facility] Comment on above: Performed By: #### 1 397466558, 4579596514 ####[facility] (DEFAULT)[address] [place] [address] 56274 U Amph Scr Negative [facility] Comment on above: Performed By: #### 1 215819803, 0444336862 ####[facility] (DEFAULT)[address] [place] [address] 67052 U Landy Scr Negative [facility] Comment on above: Performed By: #### 1 066308576, 0447605355 ####[facility] (DEFAULT)[address] [place] [address] 51583 U Benzodia Scr Negative [facility] Comment on above: Performed By: #### 1 939914769, 3074204235 ####[facility] (DEFAULT)[address] [place] [address] 00718 U Cannab Scrn Negative [facility] Comment on above: Performed By: #### 1 459945980, 8488424509 ####[facility] (DEFAULT)[address] [place] [address] 31967 U Cocaine Scr Negative [facility] Comment on above: Performed By: #### 1 578513238, 2355208957 ####[facility] (DEFAULT)[address] [place] [address] 14543 U Methadone Scr Negative [facility] Comment on above: Performed By: #### 1 851370591, 1166768442 ####[facility] (DEFAULT)[address] [place] [address] 63593 U Methamp Scrn Negative [facility] Comment on above: Performed By: #### 1 151736333, 1384485799 ####[facility] (DEFAULT)[address] [place] [address] 74893 U Opiate Scr Negative [facility] Comment on above: Performed By: #### 1 435821565, 4943834576 ####[facility] (DEFAULT)[address] [place] [address] U Oxycod Scr Negative Normal [facility] Comment on above: Performed By: #### 1 560422282, 4200417892 ####[facility] (DEFAULT)[address] [place] [address] 65550 U Phencyclidine Scr Negative Normal [facility] Comment on above: Performed By: #### 1 007824407, 0294640709 ####[facility] (DEFAULT)[address] [place] [address] 87545 U Tricyclic Antidepress Scr Negative Normal [facility] Comment on above: Result Comment: [...] PPX Propoxyphene (Norpropoxyphene): 300 ng/mL THC Cannabinoids (56-upg-0-carboxy- -THC): 50 ng/mL TCA Tricyclic-Antidepressants (Desipramine): 300 ng/mL Performed By: #### 1 382744171, 6556614036 ####[facility] (DEFAULT)[address] [place] [address] 67738 UA Standardon 06-12-2023 Breakpoint UA Normal [facility] Comment on above: Performed By: #### 1 753184162, 8047653417 ####[facility] (DEFAULT)[address] [place] [address] Color (U) Yellow Normal [facility] Comment on above: Performed By: #### 1 842858147, 7950717768 ####[facility] (DEFAULT)[address] [place] [address] Glucose (U) [Mass/Vol] mg/dL Normal [facility] Comment on above: Performed By: #### 1 269456163, 6533400829 ####[facility] (DEFAULT)[address] [place] [address] Ketones Ql (U) >=80 Normal [facility] Comment on above: Performed By: #### 1 256436699, 4278527684 ####[facility] (DEFAULT)[address] [place] [address] UA Bilirubin Negative Normal [facility] Comment on above: Performed By: #### 1 596698058, 6594045192 ####[facility] (DEFAULT)[address] [place] [address] 58877 UA Blood Negative Normal NEGATIVE [facility] Comment on above: Performed By: #### 1 176053869, 9444264216 ####[facility] (DEFAULT)[address] [place] [address] UA Clarity CLEAR Normal CLEAR [facility] Comment on above: Performed By: #### 1 309799972, 2112002782 ####[facility] (DEFAULT)[address] [place] [address] 20218 UA Leuk Est Negative Normal NEGATIVE [facility] Comment on above: Performed By: #### 1 700808795, 4290793410 ####[facility] (DEFAULT)[address] [place] [address] 79030 UA Nitrite Negative Normal NEGATIVE [facility] Comment on above: Performed By: #### 1 659277357, 4860018308 ####[facility] (DEFAULT)[address] [place] [address] 96820 UA pH 5.5 Normal 5-8 [facility] Comment on above: Performed By: #### 1 116283744, 1915367993 ####[facility] (DEFAULT)[address] [place] [address] 55724 UA Protein Negative Normal NEGATIVE [facility] Comment on above: Performed By: #### 1 387344834, 4469813283 ####[facility] (DEFAULT)[address] [place] [address] 71874 UA Spec Grav 1.020 Normal 1.001-1.035 [facility] Comment on above: Performed By: #### 1 074468315, 2562298609 ####[facility] (DEFAULT)[address] [place] [address] 68223 UA Urobilinogen 0.2 mg/dL Normal 0.2-1.0 [facility] Comment on above: Performed By: #### 1 112215652, 4712741364 ####[facility] (DEFAULT)[address] [place] [address] 61058 Urine Source Clean Catch Normal [facility] Comment on above: Performed By: #### 1 390396675, 3738365838 ####[facility] (DEFAULT)[address] [place] [address] 28575 Venous pHon 06-12-2023 pH Denis 7.37 Normal 7.37-7.44 [facility] Comment on above: Performed By: #### 1 30647887 ####[facility] (DEFAULT)[address] [place] [address] 61120 XR Chest 1 View Frontalon XR Chest 1 View Frontal CLINICAL HISTORY : Chest pain. TECHNIQUE: One view of the chest COMPARISON: 03/17/2023. RESULT: No focal consolidation. No pleural effusion. No pneumothorax. Normal cardiomediastinal silhouette. No acute osseous findings. IMPRESSION: No acute radiographic abnormality. Final Signed (Electronic Signature): Benton Minor MD 06/12/23 1:52 pm Technologist: [facility] Coding Summaryon 06-09-2023 Coding Summary [employer]Base 64 DfobuvsvMGc7kEm+PGhl YWQ+GM7EXBTzL27zyMRm iG2wJ8NYIMnHKsynDVJN JFhPIlEzvaEqLM0egAWb ZXJu IC8+SC1oEQTqUbmtxPJp p9T3nFQ1S49yjz9pLNbp yRO7ZLSpTvOuzxfhq0vt vCl8JZusCbfxDzHf HPUeoR35IKD0vN13Km44 pSRdpWCpg9ryvTo6MwGj SLJtJVJ9bRlsYJytu8Se NYNdP35bmOAka8D3 IGNvbGxhcHNlOyBlbXB0 fG8uJAejeiskd4fooyjn Gnk2mj33lYClz5X7qEP8 R9FtuoX6WCFksFWs SshjrTSBiQ9crgski7yl faaoTcGdEKSiQJb9AVw6 STCnkJmzDhSkAR72KWA7 AORukcJmO0XdDGWk dJydTmP3n2L1Pl3XV5EB GxzcT2AGURPHBAapxZJ+ AM20ho77G8XeOfrvZfg8 JPByJSY3uMG5eJ6t RWBzEFpll6A9cXM3D8Hw leXdjt8my6wmRIVwGUqo R27rxSSbh4O0MNMprHO5 MANtaHsbZrKmmU72 Oyc+BDYsnMlsf3JcTydc m2dbt0bctUb0ZajdGRDs waBnxCpoXEX3i7KaEk9i RNKuqTM9kUY5fJ9n YgQwReJ1SRtbV490GgVr yQMdYgysN63mC7QbcHD+ EVGbFea1WKQuvUzjBV8f E9OcTXSniuxovBBc dHndNW3tJCSyjlaaBQIw yB2zISEnE7j4VuPzRkM1 JHnqP0WrFMOyrygrZb80 cB4zJvGyAcW4MVjr D3EzyuE9SDXugQGbSTmm PBH5S82ab8U5TFDqGHMr MUN0gAR5dH4sdCzbpwaq bGVmdDsgdmVydGlj BDjwTAqnD739JVNgzTtj PkNvZGluZyBEYXRlOiAg MTIvMTEvMjAyMzwvdGQ+ HMTgMCB4gEnqLPBf tLIgXUaeCz1bxWlibDfk JS9wDHHheokbCPPwyX1k UIUitCKmvNmfHK5cRLAf spffn375RgXyUSS6 AISyzRTaR0NgqK7zJvMv DNKbGYUmL5FqoUDkBIea K483OKwsSuI9PNPppqGm A9QaVHFaqGrzHuX4 f3O9Bm3Ho4RbgldmG7Uz tUGqAvMoFinjSGu6W1Hu PjwvdHI+WD25DXBjXM13 HBp5TWL0dKbuIDtg ACAlL0PrsV3zNmVnPTVg ZGRkOyc+PHRhYmxlIHdp ZHRoPScxMDAlJyBzdHls WB7mAp5wWZAjRBEq eKkysXLmOuTpe1zdIFDz RQouRN3leLmwC0TqjOP1 BPSxq8q9Hb80L03uL9Mk dXA+KFLlnQH3cIH4 aC8kHlOpUdV8WZybU695 ItHqwQPnVeyfv1eeq3ez qXn2XeX1DQQiptDywZlo LWK1f7NvIi83W67e IHdpZHRoPSIxNSUiIHZh wHuwjm4qvN1cBc7+PGNv xMD7hAH8gO8pWyXiZmO1 QDroD288TwCdzPSd Supqf3aug5hmaFc3EaCg EINnukYshYioUFY9j6Ed Wx50S7VzbKkwo3OwKpx5 bt46tEXtc2B9pWO3 P8ZzTAJyzslcdYUnaMen TH9aZYJrgfvnVTHmaZ0d UKSaM8e3LgBmAuB6OGrc D6OdisP2DNKldUUh XCFucLFBvP6atbwwz2on qmkcZiWbZMGuHNc1SMc3 UOJzvLrpSfJcZDL8LhF7 AUR5xWGmaD3zcPxu teswaB6kLjt+UMH2wPYx rDFUTJ9lLbhriEO+PHRk CVA5pBabJOnxHZQdbK3v JCBmE0v6LvCbKuB7 FFrpC4BuyoT6ABZvyKBo AFJhdGVTtE4wncqiv6ro glbgNxAcURZqFZo6DSl3 LWFsaWduOiBsZWZ0 DlD7MEP6wNTkdH7naYvj edorpZ1vIyz+QmlydGgg ONQ9MZz1J7ZyVtg4ZUQo yQxjXO5wdAAzTXjb Ru5mwMjrzGcrUD6cLFVe jlmif751ExMsy2okSWIg zIBdTFcnQNU9N76lu9N3 ZQXnIVLhBFK1kNQ3 lC3gnAmhyptwgGPlpEdq ufYfuHovIDbqHChmB003 XHNubFyfIvJpIJs3D5Hr Off7TVQjpCfdXF9c zVWnZSjuSl6ldWjacIle GW4aSGYtdlltn013NvIw s9huONVqrPCyMJnjMUD9 T17oj9Y7GTAjDOGn VJF8kQP4bK0xfXxbdykn bGVmdDsgdmVydGljYWwt QMctT666SMUebNlmOgTe tPd7D3KhZzp1ZNQa xQmjFH2wkAQeATesRs9v hAlezAlpPA1pPHQrmyrl y063LaPrk7phQCTfrUDc DXbxGHV7U26rr5P5 VFPzWFRsCKG2kKS8vO4m bGlnbjogbGVmdDsgdmVy kJkfUMgdPLxbU972POMt cDsnPlBhdGllbnQg BJegWSm2Q9FuIdgioFM+ RK71HHXwTT05fCZreAVj v4cajCe2OhBeOZQkPYL5 sDgrEWnqz1FrLKLm U61voZRae9O8WCAorBid jOFjUoGzoPS9kX1zWBfk irdzx2nzsiwfWbmcr3ft rt22hQ79I21hFRiu ZHRoPSIzMCUiIHZhbGln kj3uiK2pKv5+PGNvbCB3 gRB8aQ7eRJYfXnG6EZmi Z635EeKjpPJjCtny q0pyi5urjRs5JwM0XJDc lvSlxRllMEI6u6TmYg12 T80uLBpoFPOsEAUvTISs FHOysAhhch8rdI7i Ii8+IPFzwFN5qLG8iM8o PsHlTdA1VNgmU436QuSq kPEkVtthL62dN4RuwWJ+ TIPhNhj3TMKfvFnm ST3goUYaJWijDi6oJZG7 YlTuNwKrDAxcW9UrIAGo romeswrggUT9VPXbGFIz xA02Mo7wlBmoOIFs cFDGtF1sortki2quisdu JgHvVEBiRIy0CKl7JOTj eXyfCgHlPSN8XsO8EKZ6 wNRobH7hbWqlxsfl rM1qN1IfQLZrabeuMx46 eJ0gOeYvIzJ3RHxvZfx+ DY0SLIKZXQNWKJmGIKIF PCGCRKW4I8ZzKgm6 FYDprEssCK2sjUUkQQnz Fk5pzRlexUarEQ8gUIGn ozwnSKZnzI2cMAIkeGNr cHiiFF1zGYEhdiyd y350BoCzPGA5ILYehHUb U1ZvnJ2qYtThJVTySNXx J8HudVXrLUpdI555ITbv OiC8YGChnyMsO9Qk ZBUxbKryCsJ0r4N1Zg3h Ns6rGE0oRAaeSU34AG42 gBVxz1D6pEF9V2QtPGQi kbsvbdzskBE6AWBu XBMwzA96zTOoACncLk2k r3H2j183OMXgAHVukL56 Ih7pnBrkGJBxpMCLbS5r qowfz0lkyldyTtZt WCWmJKv4QXh1XSBmhEjm NbTzDGK4AcO7QUR9iIAo yJ9ixChejfctnB8bLcf+ HzTuHJBepeD7H1Wj Vlb2OKNiqCbqET9ufSCx HGlvWu4ngMbpoNelXJ5s YOGhcmtxFXVaqU3hCIQs nVIheGkwTI6yZMSb xluyf071WgZhQRZ6NAPj bZAjJ7RepF9bIpIuSVGd XRVlW8HpcJIpWQgiU229 YEruNtL0SRXqunVk W3GgYYObeRjbGtK3s6Q5 Ll7NRM8SXOX2I3HrSnd4 EFMqdHatTU1ncDLdYHqe Ml3jkThfuYehBF6j DUHwyfypXLAqiM4lKZGm gUAfwEraTQ0qUZJtwipv a647AsAaKQI4DPXyvJRo L4KnrN8yOgTvKYAs MJRdT5GqoXPxUHicX992 XJqxEeM1GKShfjUsF5Ew LFIvqOhbMqR7y0E8Dm5E rJJrV4RoL9e2C0Bg PjwvdHI+TB76MYTgAE60 fCRjcAJev1shyHc8NgZw BFGhSYO3nJyyYXuey4Uz YGFkV54cpXNdk3P1 IGNvbGxhcHNlOyBlbXB0 mC8tUDlvzchtm4cfrbps Psail6xlgl17gE71A40z IHdpZHRoPSIzMCUi MJGqbAaupl0tzP1dMu0+ XDTjfUI9eVZ1qT1fCfZx DfD3KSaiU558SnScgRTq Xeiue4tgy6pyyNr6 IjIwJSIgdmFsaWduPSJ0 p2BpCs85M00wMKjwPGGo JRJiGASnDPViuEoghq9y zK4vPc3+YC5md7nc cu26dT60xYQ+PHRkIHN0 pEinPJnvZVVdcG7yEDoj SfS3AXRcFhDouQ42dMCt PHmyKm4vvOpqoQvg OO5iRJOgsbawc876UaKe q7tvYOLgmGWsJSxzHCD0 V39pr7P1AHUoPZAbZZN6 gBZ4jX9mrJfcxzfb bGVmdDsgdmVydGljYWwt DPsaN679MYPkdOsoOjXm rRLoI0bkbnORFO3kYzzu dGQ+JEClOEN8xIby MAysCQClkL2mPBJqN8x0 AkKsReJ3AMbiR9RxmdP4 HAGnbOVyLGCadGXPaF8u ronqv3jprypnEfGi FJXaCDl8OSv1FLTbzAvk SzPdSXJ6MrX7GDA9nZFg bJ2fvNceowobgF1zWah+ RklOOjwvdGQ+PHRk YZL2lTxfVClaZFNjiA0d MDGcO3z7MpOxNkD3NJkc U3QvroB3PZFgoDPcHZVc iWAUeN4sjbpul4tf axmfAeRrMOHrEZd7YIh8 YVWtuRztQhFvVQT3CcK8 RBI5lRLppE8rsBxcxziq hI9gDzc+TVJOOjwv dGQ+UIZuFSP9dLafZDph KHXulE1uMASnZ5n8AtYz UsS4FWxrG9LkbjF3HMNg kJPhBLDtiDLEdE6h ilwhp3bptuqvDaAqLGSe WJc0YKv4QNJjrAfvGxXg QBH3PrJ9QGZ8jPFncI7l eRcesjwrmD8wTkd+ FUX7AWI2DC89FV23Q1Rh PjwvdGFibGU+PHRhYmxl IHdpZHRoPScxMDAlJyBz bOkvFG2nBs6yMLJb LWN (more content not included)... [facility] Coding Summary HTMLBase 64 HbloatvtCRe8bHm+PGhl YWQ+WC9ZRIVnQ90deWPp fV9pM0RVFNpZWsnpLAGF QCpTDeIuvqKeES0fxZUc ZXJu IC8+FP1nRSRbGauyqAYb b0N0dWQ7V69vdq8nTVgy fKK7ULRjEhLciahhz9bn mXk1TRnkIzxsUmEv WFMwkC81ISZ2hF07Ps09 fRVsnQLlq0ttlWp1IqEv FQFkKGM4oLboAYtcl9Uc SNHrX09sdMJjc8X7 IGNvbGxhcHNlOyBlbXB0 vS1hBVkokpzlq2caipna Pav5jk43bZPuq2R3hWF2 K1BsqdP9WPLfsAEp JgogrXUMwU8pkbkpe7bk mqtwCcEmDYLfFDr4GQx5 DEBbzZsiTiJpRF74DJF8 ZVJllfBjU8NwGTPt oTyjMcR2a4P4Nn4SL1PD XgblD9RWQWEQIJxqwFK+ HQ60at15G6PwGlfuSap4 EQKeMUQ8iNP1qF5i QTMbDKffj5K8bEF3C1Lq zrTfzu0ok7ajJGDvGLtp R00xwGPiv2K7KUBmrOY8 ZCNwuSkdYlRogI36 Oyc+NFHhhJtfz7TfRljt c2pne0eizMt5BpszUADa dcUzdZwcOEH7o7XvJk4d LOUqwBC6bTK8gG1p JqRuPaC0UBpdE694SaTd qWGoLllbI75oR3SxcIQ+ NYYkWdn5KAXvpYuzAH7g B7HhLMLnnwjgnGYn qMyqCN0jKIYviroiZEHt vR9pFFYyM1k0PsUaDvM0 YThpD4HxTYBcvrnmZm36 vQ4tWpZmHyD4RHzc I4VcsrO1QKHniZDdHPme FGI0T91xg9J9MYKoMHDh LRO3pMH7aV1ylPvkizjw bGVmdDsgdmVydGlj SKekVImxC146QXQidOsv PkNvZGluZyBEYXRlOiAg MTIvMTEvMjAyMzwvdGQ+ ITDfZNI6fSvjGONw rFNhGOjwWw6pfMudiTeg KA7rLXPblbivLVMisZ6d CTUqlEWnkFbsUY3qSCTn qcofj143HyVpRLC4 EXQjyBIjV5WthI8kLeNa KWKqTFMqK0UaeOZbMNrr O467JPkhCnS9LVEtnhUk A3ZjMYSzmGpzElK1 z8D4Wi3Tk3RpatjvA7Ag pWEeCqBxIeayZRi3I2Cl PjwvdHI+WL70UMZjVV77 BVg4BEF5iDigMQra ZNYqN2AdiX7wZpJoJZYr ZGRkOyc+PHRhYmxlIHdp ZHRoPScxMDAlJyBzdHls ZK6zGa3yNPNaDNXn zFwreVFkIfVvq1gdWHLk MMfdSA2phJorI5HuxVG8 SCGis1b1Cb52I13pA5Px dXA+MHSuoWH6pPG7 wT7vZrLiWlH3XEuiW030 FfLayGLaFpfvn9ive6vy cVd7PbC4IZOgpdPwyKcw WFQ7v2ByNs79T84z IHdpZHRoPSIxNSUiIHZh xNicjk5upA2oQf1+PGNv rNO8eJK4jJ2hBzBuYwY0 WXnnX414LqGlpKIg Mxcdu8iri7naiUs1TjRr APMoryJpxVznPLN3o5Ao Cx49E3HctHlmu4NuJpa6 da54qVLig8Q7gXT3 C5QnKEGjykatpIMzzXzg KR4qIEFvxqafJXKatS4y VAUlU0t8WjDhTzG1VVqw M1QkwaW5HDZuqZZa SDMwkTLViE3gxjigv4el vlwdBmEnOGCaWJm1QSc2 XFFimKogNpNjYCR1KiW5 KRN1cALgjP0mrEzl nupywN1vErr+ALG3sAJz wHRXLC6yXwgobPD+PHRk MVL8jJutMUewJIEhhF6k PSIcD4n8TrDxPuL5 LCotJ4YisaK0OFVmoDPg FRCbvIWStD8tkkygc5nd dfxoVhMgFFKyFSu7QUu6 LWFsaWduOiBsZWZ0 HoM5LPO1kNHkvV8qkZyz gutnnU3uWnd+QmlydGgg VQX8ZYu2Y7TqTol0LKRo sGykIO6vyZFtYXfk Vi1zrPiprYgwBC1lKVIz exsfu798GeOqx9etMRVq rCOeHMrpWSG0N19hn5A3 IEYmRTBzGVT0nMD6 yI1uoJhmboiceKZwjXcc olRhfXsvMPmxXFujW692 ZZKfcVoxMmZpRTb6A0Qs Sbs1DDJolQvaUG5h zFHqUSjcRv4maCacxXru GY9yAZXfutozm002YrGz v1wiBOZjvRVpYSetXLR1 W67yi1Q7ITGcRGZb QSN9jBQ6lA0vyQiohjpl bGVmdDsgdmVydGljYWwt RVziC126VBQzxOiqYqHm eZp8J7UkJcr6XJFx kIgoOG4zbFQsDXnnAt5e vXeioUvrDL1iJUDfoyki i929JaVnr8kvQYBcxFQa JNfqVXT5Q50hs8G0 EHJcPGJwRZR7pZX8uW3q bGlnbjogbGVmdDsgdmVy nQfcXSekFMelV528MVKg cDsnPlBhdGllbnQg PMelBLa7F5FfXysuwAB+ QR47KTIeBK64xFWubEUt v2fpzVz6EgToYNKqCXI7 oFvvMZxdw2WsCYBb L55psLZxz1Z4GFUzaGoi pTFhOgUqaJR7eL7fLFyw wmmoo3yiiddpEkedi6wp br66uK27G32kDTfw ZHRoPSIzMCUiIHZhbGln rm8ccU2qSr4+PGNvbCB3 wLG6bZ3vGEYpAnJ1PKkz T939TcSrnXYgZdiw e7wdd2xfeTh9KwF4QSQe ahQdkCwlOOO2f3CzAx39 P45lNLyiLCLuVYCsURVz EZSdyPgnfd4wdI8x Ii8+COKfgXG8cRD2eS4d KrKiHnZ9DKbcN237NvWw tVCcXpbyM44aI7PhnTR+ YXBuAvk2KMArjMxh HV6apAIgQZobJa7dKQI9 CgXgXdViRKuzO1EfEQZz ylmwcbabcQH4LAShQKMm nG97Hl3vyBumCIGp rHMEuZ8dosjks4qqquvw GtGlBAEaPEb9BVm8MBYw hWgqNlPlASS6TdX4ACL5 xXZtaX4nbTukpucl vA7aR3YwFXEhmrouXd35 dL3kTaDzYsN8ZRynPfj+ RI5UVOQSBJQTGBlQLJHV IDYXAQE2H3FbMlf9 RTUshBjqAJ3kkPWlFXxc Vp0rdAcqyYzfWH5iCPBn ajitELXynG6nJBQbiJWv aVgzLV8lDUSgrvjw i025GmXiOTI4PMMvwMHj P5PbwM2pTsJbDKUlRYRa V0NytVTtRDnjY850MQwn CzO7UDQlfxWwJ0Px NKAeiMpvUkY8b4P4Nz2e Lg1mXU1yLRbjPO81KY44 mYMoy8Z6jNT7X9ClFMPs wuifezfywSR1WJAc PPRbjB61mWNyFQzuHf5f g6L8s953ENJcBVHtiI34 Eb7soCddKJEowOIUxX9m tdhjy5ptvqqcQhQe UAFcELv4GVs9HKRzeNug XiYeQRI9XgI7KSN9hDBp pO6teKyxciygfK0oYii+ YtIxCTGjrhE0Q7Gb Kdp3NBIquIpuMI3agXVc RQlhCv2fiLxhnGcgSC6a QKXjnnycOPBmsC8tOFAr gVSmcMpqIS4eMBNo bdqpf599WfJoHAN6HKVv gYGoG5LjtL4oOhZnOGMl KYGwC4NweSYxCEkhR750 WSszTgH3AWIoucGc L8OfRLEhtRlhDmS4p0A8 Ux7WNP5MXVK5A6UjDgj8 MQOpxWflZB0poRIsWMqt Xa6zbPdtjDjwLZ1d RZZswxgdDOTarM2nWJXd dQErfVjnIY6lEWUyiqwl j459PnCaLBH6UIVkxPUq B4DhjL5dNoRxEMOf WZPqZ4AwfIVdIOprT148 ZLctBfU1DIKchyKaM7Vc YQUxvRpmPxF7t7G0Uo4J tDCiH3NzF4f5G0Xz PjwvdHI+BT80XMUsTN23 tVJwlAAsg8edbMd2LjTg PNKoAGF6eWxzIFzie0Cd JXJqC16rdVImp1B9 IGNvbGxhcHNlOyBlbXB0 yF7zUVqflxoaw9eocrlw Gfyse5lvct81aI53K22f IHdpZHRoPSIzMCUi BWZmdEdoal6ffA7nLf7+ EUZdxGZ7iEO6dK0uSxLz GuR9OWntG130PtFyqLJd Dqkiy6yds7pgqLj3 IjIwJSIgdmFsaWduPSJ0 p3BoMs45D60bGPffNOZe NAKmNVSnFZDblMrrxf4u uM9nYc8+QA6ak9ix pe77iW97nYH+PHRkIHN0 mOljGNgpVCRpiH6rZTsx VxF1CJPfPiBelD64pHSh YEevDo6quFontJse EC3kCIMvidcqw668TxCx k3tfKIExuKYlTQhdZPZ4 R89rk3R1WRKgPEZfZHB7 vRN0nF7ayIeqpbwy bGVmdDsgdmVydGljYWwt PKmcO439QCDbxEndKpPc tBCvW7qydbJOHF9bOdvm dGQ+XLJgDVF5fHgh QXjqDGZzoC6gFGGyF3s1 GtHeSwN2KXtzC3HinfZ1 DJSebYGpAFMfcLVWuZ0y qrgls8dwjabbKqOh HWBqGNn9YGw3WQRjgUwr OiKkERI8BnO0ICH9wMKr qT0suPufzbmpjR7hHzw+ RklOOjwvdGQ+PHRk ZNG9xYcjTVnoBPOhbR2j IVOxT4w8RwPoJjQ1DKnk J6MillL3KUXcsQTxYQQj zXQXmT9tpgfwv3kx nignFnDkJEStYLh0EAd0 RQYvrPimBcFpHWH4IoG9 YOT7mAGrxG9ivHsldjki hX2lAmf+TVJOOjwv dGQ+GHLeCXL0zCbrDQta FYQjxL2eQVTbT9b9CkFi KqT6MGvcA1GsxyW0LIDd fXTsEBMeuSEMoF8r lxjfe8fexsucUsIlKTPg XZj9RPy7GORhxJbxRoIe MTW0DjM5KZH4kIWbvW8c mKjyafxjtS7vLdp+ PZZ3MZA8RL96IT02I0Dr PjwvdGFibGU+PHRhYmxl IHdpZHRoPScxMDAlJyBz xQwgWG2eIi5ePAJy LWN (more content not included)... [facility] Coding Queryon 06-05-2023 Coding Query [...] DO [Transcribed on: 06/05/2023 16:33 EST] [facility] .Auto Diff 105-30-2023 Auto George % 6 % Normal 07-11 [facility] Comment on above: Performed By: #### 1 [id number], [id number], [id number], [id number] ####[facility] (DEFAULT)[address] [place] [address] Baso Abs# 0.1 x10 Normal 0.0-0.2 [facility] Comment on above: Performed By: #### 1 [id number], [id number], [id number], [id number] ####[facility] (DEFAULT)[address] [place], [place] [id number] Basophils/100 WBC (Bld) 1.3 % Normal 0.2-2.0 [facility] Comment on above: Performed By: #### 1 [id number], [id number], [id number], [id number] ####[facility] (DEFAULT)[address] [place] [address] Eos Abs# 0.0 x10 Normal 0.0-0.4 [facility] Comment on above: Performed By: #### 1 [id number], [id number], [id number], [id number] ####[facility] (DEFAULT)[address] [place] [address] Eosinophils/100 WBC (Bld) 0.4 % Low 0.9-4.0 [facility] Comment on above: Performed By: #### 1 [id number], [id number], [id number], [id number] ####[facility] (DEFAULT)[address] [place] [address] Lymph Abs# 1.4 x10 Normal 1.3-2.9 [facility] Comment on above: Performed By: #### 1 [id number], [id number], [id number], [id number] ####[facility] (DEFAULT)[address] [place] [address] Lymphocytes/100 WBC (Bld) 25 % Normal 14-48 [facility] Comment on above: Performed By: #### 1 [id number], [id number], [id number], [id number] ####[facility] (DEFAULT)[address] [place] [address] George Abs# 0.4 x10 Normal 0.0-0.8 [facility] Comment on above: Performed By: #### 1 [id number], [id number], [id number], [id number] ####[facility] (DEFAULT)[address] [place] [address] Neut Abs# 3.9 x10 Normal 1.5-9.2 [facility] Comment on above: Performed By: #### 1 [id number], [id number], 7050041, [id number] ####[facility] (DEFAULT)[address] [place] [address] Neutrophils/100 WBC (Bld) 68 % Normal 44-88 [facility] Comment on above: Performed By: #### 1 [id number], [id number], [id number], [id number] ####[facility] (DEFAULT)[address] [place] [address] [facility] Standardon 05-30-2023 eGFR Non AA >60 Invalid Interpretation Code [facility] Comment on above: Performed By: #### 2 [id number], [id number], [id number] #### [facility] (DEFAULT) [address] [place] [address]36 eGFR AA >60 Invalid Interpretation Code [facility] Comment on above: Performed By: #### 2 [id number], [id number], [id number] #### [facility] (DEFAULT) [address] [place] [address] Anion gap [Moles/Vol] 13.3 mmol/L Normal 5.0-19.0 [facility] Comment on above: Performed By: #### 2 [id number], [id number], [id number] #### [facility] (DEFAULT) [address] [place] [address] Calcium [Mass/Vol] 9.1 mg/dL Normal 8.9-10.3 [facility] Comment on above: Performed By: #### 2 [id number], [id number] #### [facility] (DEFAULT) [address] [place] [address]33 Chloride [Moles/Vol] 102 mmol/L Normal 101-111 [facility] Comment on above: Performed By: #### 2 963651, [id number], [id number] #### [facility] (DEFAULT) [address] [place] [address] 78518 CO2 [Moles/Vol] 25 mmol/L Normal 21-32 [facility] Comment on above: Performed By: #### 2 540643, [id number], 2069985 #### [facility] (DEFAULT) [address] [place] [address] 81301 Creatinine [Mass/Vol] 0.55 mg/dL Low 0.60-1.30 [facility] Comment on above: Performed By: #### 2 083419, [id number], 2559514 #### [facility] (DEFAULT) [address] [place] [address] 63257 Glucose [Mass/Vol] 293.0 mg/dL High 74.0-118.0 [facility] Comment on above: Performed By: #### 2 993702, [id number], 9857060 #### [facility] (DEFAULT) [address] [place] [address] 54617 Osmolality 283 mOsm/L Invalid Interpretation Code [facility] Comment on above: Performed By: #### 2 137832, [id number], 0656783 #### [facility] (DEFAULT) [address] [place] [address] 37544 Potassium [Moles/Vol] 3.3 mmol/L Low 3.6-5.1 [facility] Comment on above: Result Comment: IV T herapy Performed By: #### 2 156249, [id number], 0906419 #### [facility] (DEFAULT) [address] [place] [address] 23751 Sodium [Moles/Vol] 137.0 mmol/L Normal 136.0-144.0 [facility] Comment on above: Performed By: #### 2 649802, [id number], 1873292 #### [facility] (DEFAULT) [address] [place] [address] 02665 Urea nitrogen [Mass/Vol] 8 mg/dL Normal 8-26 [facility] Comment on above: Performed By: #### 2 064846, [id number], 7633873 #### [facility] (DEFAULT) [address] [place] [address] 91794 Urea nitrogen/Creatinine [Mass ratio] 14.5 mg/mg Normal 4.6-16.2 [facility] Comment on above: Performed By: #### 2 695532, [id number], 8655728 #### [facility] (DEFAULT) [address] [place] [address] 79267 CBC w/ Auto Diffon 3 Erythrocyte distribution width (RBC) [Ratio] 15.1 % High 11.5-15.0 [facility] Comment on above: Performed By: #### 1 4153954, 3329125, 7535566, [id number] ####[facility] (DEFAULT)[address] [place] [address] Hematocrit (Bld) [Volume fraction] 38.8 % Normal 33.7-40.4 [facility] Comment on above: Performed By: #### 1 3781125, 5433757, 3954059, [id number] ####[facility] (DEFAULT)[address] [place] [address] Hemoglobin (Bld) [Mass/Vol] 12.5 g/dL Normal 11.3-15.9 [facility] Comment on above: Performed By: #### 1 9260154, 1667453, 0627716, [id number] ####[facility] (DEFAULT)[address] [place] [address] Man Diff? Auto Invalid Interpretation Code [facility] Comment on above: Performed By: #### 1 0399157, 6364177, 7334574, [id number] ####[facility] (DEFAULT)[address] [place] [address] MCH (RBC) [Entitic mass] 26 pg Normal 24-34 [facility] Comment on above: Performed By: #### 1 5431466, 6224658, 4983577, [id number] ####[facility] (DEFAULT)[address] [place] [address] MCHC (RBC) [Mass/Vol] 32 g/dL Normal 26-37 [facility] Comment on above: Performed By: #### 1 0703518, 5269112, 3691223, [id number] ####[facility] (DEFAULT)[address] [place] [address] MCV (RBC) [Entitic vol] 80 fL Low 81-100 [facility] Comment on above: Performed By: #### 1 1914114, 6580342, 8366040, [id number] ####[facility] (DEFAULT)[address] [place] [address] Platelet 255 x10 Normal 138-427 [facility] Comment on above: Performed By: #### 1 3493949, 5891033, 9856270, [id number] ####[facility] (DEFAULT)[address] [place] [address] Platelet mean volume (Bld) [Entitic vol] 7.9 fL Normal 6.3-10.2 [facility] Comment on above: Performed By: #### 1 6624731, 6185814, 2805671, [id number] ####[facility] (DEFAULT)[address] [place] [address] RBC 4.84 x10 Normal 3.70-5.30 [facility] Comment on above: Performed By: #### 1 7860740, 2655075, 1446438, [id number] ####[facility] (DEFAULT)[address] [place] [address] WBC 5.8 x10 Normal 3.5-10.5 [facility] Comment on above: Performed By: #### 1 7178667, 1444475, 6945139, [id number] ####[facility] (DEFAULT)[address] [place] [address] CMP Standardon 05-30-2023 Breakpoint Chem Normal [facility] Comment on above: Performed By: #### 1 8969834, 3722834, 2256706, [id number] ####[facility] (DEFAULT)[address] [place] [address] eGFR Non AA >60 Invalid Interpretation Code [facility] Comment on above: Performed By: #### 1 7717700, 3077154, 9793475, [id number] ####[facility] (DEFAULT)[address] [place] [address] 96982 eGFR AA >60 Invalid Interpretation Code [facility] Comment on above: Performed By: #### 1 2164609, 8411093, 6602004, [id number] ####[facility] (DEFAULT)[address] [place] [address] Albumin [Mass/Vol] 4.3 g/dL Normal 3.5-5.0 [facility] Comment on above: Performed By: #### 1 1349315, 3750998, 7003285, [id number] ####[facility] (DEFAULT)[address] [place] [address] Albumin/Globulin [Mass ratio] 1.2 {ratio} Low 1.4-2.6 [facility] Comment on above: Performed By: #### 1 7687298, 0944099, 3749736, [id number] ####[facility] (DEFAULT)[address] [place] [address] Alk Phos 80 IU/L Normal 32-91 [facility] Comment on above: Performed By: #### 1 0537402, 4381022, 7542119, [id number] ####[facility] (DEFAULT)[address] [place] [address] ALT [Catalytic activity/Vol] 23.0 U/L Normal 14.0-54.0 [facility] Comment on above: Performed By: #### 1 6224195, 8311331, 2111080, [id number] ####[facility] (DEFAULT)[address] [place] [address] Anion gap [Moles/Vol] 14.3 mmol/L Normal 5.0-19.0 [facility] Comment on above: Performed By: #### 1 5776820, 1533339, 5933195, [id number] ####[facility] (DEFAULT)[address] [place] [address] AST [Catalytic activity/Vol] 17 U/L Normal 15-41 [facility] Comment on above: Performed By: #### 1 2544478, 5769797, 7536990, [id number] ####[facility] (DEFAULT)[address] [place] [address] Bili Total 1.1 mg/dL Normal 0.3-1.2 [facility] Comment on above: Performed By: #### 1 0204599, 3093216, 3147637, [id number] ####[facility] (DEFAULT)[address] [place] [address] 51304 Calcium [Mass/Vol] 9.0 mg/dL Normal 8.9-10.3 [facility] Comment on above: Performed By: #### 1 0695860, 1691376, 0085975, [id number] ####[facility] (DEFAULT)[address] [place] [address] 44218 Chloride [Moles/Vol] 94 mmol/L Low 101-111 [facility] Comment on above: Performed By: #### 1 3427439, 4595358, 5766503, [id number] ####[facility] (DEFAULT)[address] [place] [address] 87130 CO2 [Moles/Vol] 25 mmol/L Normal 21-32 [facility] Comment on above: Performed By: #### 1 0465034, 2146822, 2739148, [id number] ####[facility] (DEFAULT)[address] [place] [address] 60633 Creatinine [Mass/Vol] 0.73 mg/dL Normal 0.60-1.30 [facility] Comment on above: Performed By: #### 1 7904224, 0711774, 8561127, [id number] ####[facility] (DEFAULT)[address] [place] [address] 43297 Globulin (S) [Mass/Vol] 3.5 g/dL Normal 1.5-4.3 [facility] Comment on above: Performed By: #### 1 3967595, 3967489, 2556798, [id number] ####[facility] (DEFAULT)[address] [place] [address] 98525 Glucose [Mass/Vol] 784.0 mg/dL Critically abnormal 74.0-118.0 [facility] Comment on above: Result Comment: Crit ical result GLU 784 mg/dL called to and read back by oil heater operatornew hollingsworth at 29-May-2023 23:28 by erica. Performed By: #### 1 1134466, 4188307, 2672204, [id number] ####[facility] (DEFAULT)[address] [place] [address] 96177 Osmolality 295 mOsm/L Invalid Interpretation Code [facility] Comment on above: Performed By: #### 1 1329291, 5602109, 8075050, [id number] ####[facility] (DEFAULT)[address] [place] [address] 74195 Potassium [Moles/Vol] 4.3 mmol/L Normal 3.6-5.1 [facility] Comment on above: Performed By: #### 1 3696378, 4897886, 1696055, [id number] ####[facility] (DEFAULT)[address] [place] [address] 02355 Protein [Mass/Vol] 7.8 g/dL Normal 6.5-8.1 [facility] Comment on above: Performed By: #### 1 4506338, 0668219, 0916533, 1482542495 ####[facility] (DEFAULT)[address] [place] [address] 93142 Sodium [Moles/Vol] 129.0 mmol/L Low 136.0-144.0 [facility] Comment on above: Performed By: #### 1 4488054, 6832945, 2427298, [id number] ####[facility] (DEFAULT)[address] [place] [address] 07153 Urea nitrogen [Mass/Vol] 8 mg/dL Normal 8-26 [facility] Comment on above: Performed By: #### 1 4773000, 8303137, 6230390, [id number] ####[facility] (DEFAULT)[address] [place] [address] 63713 Urea nitrogen/Creatinine [Mass ratio] 10.9 mg/mg Normal 4.6-16.2 [facility] Comment on above: Performed By: #### 1 6628454, 1245477, 2762445, [id number] ####[facility] (DEFAULT)[address] [place] [address] 66359 ED Clinical Summaryon 2022 ED Clinical Summary [facility] - Emergency Department [address] [place] [address] 54555 ED Clinical Summary PERSON INFORMATION Name: DOUGLAS CORDOVA Age: 27 Years Sex: FEMALE : 1995 MRN: Acct#: Visit Reason: Hyperglycemia; Hyperglycemia; HIGH BLOOD SUGAR Arrival: 05/29/2023 22:26:11 Discharge: 05/30/2023 02:16:00 LOS: 000 03:50 Check In: 05/29/2023 22:26:11 Checkout:05/30/2023 02:16:00 Address: [address] [facility] [address] PCP: ARCADIO IGLESIAS PROVIDER INFORMATION Provider Role [...] penicillin PHYSICIAN DOCUMENTATION DISCHARGE INFORMATION: Discharge Disposition: Snf/Long-Term Discharge Location: [facility] PATIENT EDUCATION INFORMATION Instructions: Hyperglycemia, [id number] Follow-Up: With: Address: When: Return to Emergency Department In 1 day 05/30/2023 Comments: home resume your normal insulin therapy tomorrow you are welcomed to return as needed You are medically cleared for confinement. T H ALEX< ER PHYSICIAN< H Hamilton Shah, 27 MAY 2023, 2255 hours DIAGNOSIS: Hyperglycemia without ketosis Patient Understands: Yes - Patient/family/careg iver verbalizes understanding of instructions given Comment: [facility] ED Note - Physicianon 2022 ED Note - Physician Patient: DOUGLAS CORDOVA Age: 27 years Sex: FEMALE : 1995 Associated Diagnoses: Hyperglycemia without ketosis Author: Linn Johnson DO Basic Information Time seen: Date & time 05/29/2023 22:31:00, Easy ambulation past the fish bowl, in no distress, in presence of police justice. History source: Patient. Arrival mode: Private vehicle, [...] Impression and Plan Diagnosis Hyperglycemia without ketosis ([id number] R73.9, Discharge, Medical) Plan Condition: Improved. Disposition: Discharged: time 05/30/2023 01:55:00. Patient was given the following educational materials: Hyperglycemia, Pwyh-zh-Gojx. Follow up with: ; Return to Emergency [...] 05/30/2023 02:57 EST] Linn Johnson DO Normal [facility] ED Patient Summaryon 023 ED Patient Summary [facility] - Emergency Department [address] [place] [id number] PATIENT DISCHARGE INSTRUCTIONS Patient Information Name: DOUGLAS CORDOVA Age: 27 Years Date of : 1995 Reason For Visit: Hyperglycemia; Hyperglycemia; HIGH BLOOD SUGAR Arrival Time: 05/29/2023 22:26:11 Primary Care Physician: ARCADIO IGLESIAS Attending Physician: Linn Johnson DO Comment: Visit Diagnosis: Diagnoses This Visit Hyperglycemia ([id number]) Hyperglycemia ([id number]) Hyperglycemia without ketosis (R73.9) The Pharmacy at [facility] is open Friday through Friday [...] alcohol and/or drug addiction problems; contact the [facility] 20/01 Crisis Hotline -Text [id number] [phone]. If you received any narcotics, sedation, or [...] and treatment you received today in the [facility] Emergency Department were for an urgent problem and are not intended as complete care. It is important for you to follow up with a doctor, nurse practitioner, or physician?s railways assistant for ongoing care. If your symptoms [...] so we can reach you if necessary. [facility] Emergency Department has provided you with a complete list of medications post discharge. Please inform your coke drawer hand/provider of your visit and for further instruction [...] a day. Durable Medical Equipment for Prescription ([employer] DASH PODS (GEN 4) 5PK) change q [...] EDT teste (more content not included)... Normal [facility] Ketone Serumon 05-30-2023 Ketone Serum Small Normal Negative [facility] Comment on above: Performed By: #### 1 [id number] ####[facility] (DEFAULT)[address] [place] [address] Outside Recordson 05-30-2023 Outside Records [id number]. [id number] Normal [facility] POCT Glucose Levelon 023 Glucose [Mass/Vol] 288 mg/dL High [address] [place] [address] Comment on above: Performed By: #### 4 [id number] ####[facility] (DEFAULT)[address] [place] [address]479 Glucose [Mass/Vol] 278 mg/dL High [address] [place] [address] Comment on above: Performed By: #### 7 [id number] #### [facility] (DEFAULT) [address] [place] [address]652 Glucose [Mass/Vol] 389 mg/dL High [address] [place] [address] Comment on above: Performed By: #### 4 [id number] ####[facility] (DEFAULT)[address] [place] [address]7635 Glucose [Mass/Vol] 590 mg/dL Critically abnormal [address] [place] [address] Comment on above: Performed By: #### 2 [id number] #### [facility] (DEFAULT) [address] [place] [address]42 Glucose, POC >600 Critically abnormal [address] [place] [address] Comment on above: Result Comment: read high Performed By: #### 2 [id number] #### [facility] (DEFAULT) [address] [place] [address] Test Urine 1on U Preg Negative [facility] Comment on above: Performed By: #### 3 [id number] ####[facility] (DEFAULT)[address] [place] [address] U Preg Internal Control Pass Normal [facility] Comment on above: Performed By: #### 3 [id number] ####[facility] (DEFAULT)[address] [place] [address] Progress Note - Nurseon - Progress Note - Nurse PT and [employer] deputy advised of discharge instructions-advised to check glucose every 2 hours until stable then to follow prison protocol-may return at any time, educated on s/s of hypoglycemia to watch for. [place] provided with medical clearance form. Pt assisted back into personal clothing and cuffed by officer for custody. Pt provided with education and resources for transitional housing, [facility] [place], and [facility] hope line. Pt counseled on addiction and [...] on: 05/30/2023 02:13 EST] Shellie Turner RN [facility] Telemetry Stripson 3 Telemetry Strips [id number] [facility] Coding Summaryon 03-27-2023 [facility] WbshqnnzMLv5mCd+PGhl YWQ+HR5AFKMiR63lqVWj oF9kC9ITOUwQGhgvZBHX DFwNZoToyvQoMS6kfAPa ZXJu IC8+UD3iNPLsQlnkeLWa b6X7bWF1A07hkv9bLTfj pEA5DLGaYqFsejgyq7ed kWy7FEuqTedeGnIt GBDjwT71TMP1sU35Tw83 wKYjmPGqn2rwvRs8ItMk QJMwHKH9uTatAUpvv8Iw UHGsU21txGRzu3U7 IGNvbGxhcHNlOyBlbXB0 rP0yKWbnvallr9fpvjhg Adp0qy01wNSkc7N1tIS7 B4CctyS3JXQasGWu OhekhCIYjG1sqfhty3bv wlfpOnQrTMAdDNq0ZXj5 DTVgvJnsWvGyAU01OFG9 QWDwisBpK7NqECRu gNsiNtJ0h9M8Ct8TD3XU WplcG6WUURLYVKsdvCP+ QW59el75J5OdKfueLao4 OKMhVKB7fTL5rD2r FDYcRSqjr2I0mDW7D6Hk ioBxky5fi3jwGDDkJDoq Q14gwPAuj4B2REYpnZU1 JUKvlHikTzXzbH41 Oyc+HDZqyWtne7SqEtuw z5xzf1gwuLr1FqeyEAOe vuJggVabAEN3k0HkCh6r OOXgtES6zIE4uW5a ToVwRcS3ZFttS838CpBb xFLrOzryL83sK6XbbHA+ AUSaOmt8NDLtfIahEE7p X8HvYRDvsjbsaAQv nUcfWN5oYXVgnzmgXQNg rJ7wNPHdV5w1YiLnReW5 DPiuW9NuNNOxaelnGu86 iO2jCyCaSdI3JEfp X9QagkZ9EECpqVSkJJly KYC4W19uu1N2DPDjRGQw OOF5yRZ6cM2dyBzkncbx bGVmdDsgdmVydGlj BQciFLtpH194PNHsdOwz PkNvZGluZyBEYXRlOiAg MDkvMjgvMjAyMzwvdGQ+ TOIrBIT5mDheZZRz mCVsVNkxTp5tfCtzfOjk SP0bGEBdkbgpSPXirS1w ZRRqjLRyuMjmVG4uVTHf huzoo141PrRcHIA3 RVCduIEkH3PscX6tWqYq MAOlYFEeA5FayXDrOXzp P382AFerRpO1QTZwwbDn N7ZdCWNnaJvnAhL3 c5F9Xh1Xk4QeqkhhP7Qt rVCdUqMjGobsZUe0L4Wh PjwvdHI+JI94BPQrDO28 VAd8ALC9iUhiVYse DZRvZ5TagM4yMqMiVDNk ZGRkOyc+PHRhYmxlIHdp ZHRoPScxMDAlJyBzdHls FW8zXl8eWWZcLYLl hVmfiDCeRhTny5zqJZMl ONndOR2ucDgtF4SqqYC3 NVKxz9t6Jy40R58wT3Yq dXA+HGYxfFB9uBI1 tJ3qMiCzCeG7BNujH569 VmVcyFDnZjpkg8lit9fm xHs9QmV6RXDnlrJweBok FGW5l5JcTb32C77v IHdpZHRoPSIxNSUiIHZh uRkdvu8wbH1xAh6+PGNv zKZ8uRS6dC0nTaBkIrS9 GLshF747PePxbLPx Zxkpx4krl0wloRr8XaWz KTNvqqOjuFsvJJI6r1Wg Ko15S2SohFsmm2JuOen8 ew15yFOka0V5gPK5 C2RyJKEjivpkyIFtdAti MV5nSUXxhhlkSWJduO8j AWUeA7a2EsDeTjM8GZqt K0YubrM2ZHFwqHNm RPRrnPPMuY1tmftxe3pi fbvyHsMcFANnYYs4ENm4 EUWrnThsSkNxLSR9OyE7 DCS7uJEcpQ3hrWoc kqqbvH1dArp+TIP3bQFq rKUKQH2lHtifdZX+PHRk SCW5gWpeXCvmSQNmqL3w ANDaU4a0DtNwZyG5 IJoeY4VuxnN3PCUsqMFw SNUtyOLNsQ3bkikhm4kk grovPyWfPSKmCZe2FQx2 LWFsaWduOiBsZWZ0 UhV3BHL6aOIloG1yqPof meezeS0tTxu+QmlydGgg ABE0TTd6Z2AfBpo9ZFIn vCisYL8uwCLoSFpq Cd4uoObkrYtsYR4fODQe ahyfc897LdNgt1ssIPAl hPItDFesJHB7Z07ez2O0 BFGeNDQuLJO5eMB3 rG0ymIxbvfljdLJxtMwt jiDqvYkwSNlpNJisY903 NPDcvPhdBfSnLUz5S3Yz Czx2NTXgyTanKD7j qDAiMRkySj7vyNagxMif ZV3yOWSccnnvt794GiCj v0ssLXUkbSDkNIoiVBY9 A44hv3U7PJUtHUQj KTT2kGA7dY1vzAoxoknp bGVmdDsgdmVydGljYWwt FGafU322EJKcgDruTlGt oRy1B6MgWew1XZPw xVbbLB5vsOVdBUnjHt2y kZbqiFwoOE2oOLLhvajk n015EyQrw6qlHHAjdRUp XWidZTH3U76xt9J6 TGJqVEUxAFB5oHE5mI1z bGlnbjogbGVmdDsgdmVy sSuaDCclQPiiZ415NYEt cDsnPlBhdGllbnQg DOyuFIb6F0VhXnrpbUE+ WT22CGHwFQ32gAWfgIJr a0btkXn9CzGrWRVcVZR0 jFbjDBxfs3MpSKWh L37tsHTll0X4RFGwjCur zFJpSsNulRU5eJ7pNGtl cebdn0fyedsmSycgt2nm wb24lA97T50hOHow ZHRoPSIzMCUiIHZhbGln ct9fhG1tHl8+PGNvbCB3 uBM5bF7hSFYtBlS0RMsf A235DrLxmTGnCavw v5msd4rpdYj5HkA5KILt anQlsCxiATN1a6WoIh03 N81dZRihTRBfRIWaJYUf MFDdyLydod5slZ9o Ii8+ACDtoNY0qRP3oA1l IuKkWdS6XEjiS283FeAp cYJhHmguN99tP6IjkGT+ HSUrVpj0TQEgvCea BO3qmEYoTHwbPk9sEJQ8 LqNuOkUjISqlA6ZbHMGv gmlnmtbbwOG7LXRkUSNh zT50Nr3yxTbmUSHg lSALjB9xkbqyi9fvhcjv EbUsEMIfRQi0IGm2TCMe xDonYeHtFJC4FnI1UKK2 lWRgaG8ufZywwqzb zP6kC4XkRYAukjtrZl27 gJ9tHjOlNfJ5GFlxOdd+ EW0MROYNOMPHDAbZKZYA FK30PK28dSIvp9Z2 bEY2A6RiKQJzgcjshglm mJL3NQUoKBLhdU20nHIr FZdyAz2mm7F3c851GXNq NAOabQ92Af2yfYvc DOCdqQIFcG0cyuoxe0ug rdenJyCzZPVnOIr7HJs5 SOYmqJkpZwZwODF5RwF6 DJL3dJEcaS9ohUrd xsajyI1xIxm+MTIvMDUv NIh8YnhnyMF+PHRkIHN0 wYzzQXlrMVYzjV1hBABb R4s1YfZiNpT3VZyo I2GaBKHvhybzBh49qD1o NeCjSsC0IZzoV7WlfdY6 DIFljFHzOWcfKUY2K70i n9B3EZJdHZHqVCP9 cQE2cS4xgYkjtvrjeFZs dDsgdmVydGljYWwtYWxp R009OSEqaAfdAcL6ITjn XPTxOA70PU88fPXk n7C3jVP2K3JxBFMotiln crjgzIQ6SFXnCRSyaK09 vWTnGIopHw0qm8B9f820 KEAeACHovY36Db6j qEmtHGPwcDXCwO9ijhkv n0rryctdVxYdIVUiSWo5 XGv1UQAqmKqkQlGbBTW4 EeO7GBJ8zXGvkF7d uKzhekoufU0iUie+RkVN DFnZRQ97WS14aNIdt5M3 uNY6T8PvXVFrunpafcun eDZ5AKEzYHQbqY01 iBRcXMplDr9px8F5g185 VINdICCoiG81Hm7jaAhd ILJcjZTOzD1cmohop8xx cjogIzAwMDAwMDt0 TNb6ABLrnAeuIpSnPLC0 LbN6AXN3mTPjwC0ifApv uosebJ9jRin+KD8gdhul rtN0ZN71IH02Y5Yb PjwvdGFibGU+PHRhYmxl IHdpZHRoPScxMDAlJyBz zOujZU8eVf0dUTAxEODy lDzoiFKgHpXuc2en LMMhKWgcPJ0kkLzhV3Eg rFV7XNPxl6g7Nf22V82k Y0GlgIQ+MISabVL1oZM7 yL3qZtRrZmI1XMtz Q524WlUrrOYaGnogr1vp z0xovFg3PcXvZNMwbdIk mOsbVJG2u7WoRs48Q43d IHdpZHRoPSIyMCUi QXVnzUgquh6ngO7bZu7+ ERFztOX5xYB4lR2dUjQf GuK4TDitL690NfUatHRa JtaiO16kI4UbfVL+ WAEgFqu4GKKwwTyfIX7c eDQlBSeuBf2bLIC3MiYx NiSvTQjhS7XsIUZszxsd tiivcOD3VAOsIPVz sU40Fw9ywBlhOz5uSAMv NFG0AMSemSSmX3LyaL3t NyNhITAnSYCnG9JjpMVp TAhjE399EEiyMjP9 SQXcrxMoX3VjIIYoaAiy DxO8f6V7To5DnHtdvCHt GT3jLqUrBYr4T3OjNsi5 WKFpnTcrUJ7xuXZk OMlqVz9peRndmCrzTA3l OSJgulcvl928BbZyp4os FJAbfKYmSDjxORQ1J09t p3X8IVTrDFWrLFS1 oSB0hH7fgSyrrdsbeQJo dDsgdmVydGljYWwtYWxp H783IMTkuTffFgGXQyn6 A3UsToh4IBXsfZnv FI9euTPpVKlwVe4lmQjj uQerLW1nWVYvjaejy814 TfUcz8znJXPcaKPzBCrx OUF9H32jy6F3JEZg LADbMFE5iOB4gE3jnFnv bjogbGVmdDsgdmVydGlj GDbtYEjdT188JDRlvRvb Hl3XKxa2J5RoUqn6 TPIozKrsMN0twOUvWWjd Bb6tuIcffVtdYA9cCSTb pcjki879YrGtn7rnQTDp dLWuCFpeYGB5C30c e0Y5SYFyAAYnTPT3kZR1 nV8xnHkumafvaQLklIeb ecTpzOdvLHexOCnlR853 IHRvcDsnPlBheWVy OjwvdGQ+NZ24ci43M7Gi OfupIdb7UMBqHNO5rGE4 cB3gOWNwGRkxo8V7eDA5 R8UusrBuqm4uz8ir YXB (more content not included)... [facility] Coding Summaryon 03-25-2023 Coding Summary HTMLBase 64 UuwlhkldOSr3rRg+PGhl YWQ+MO9CRTXgV92kyEVt kV4cX1WIIFvFAdfgLUFG DJxQXeFkouCwOY6byPDi ZXJu IC8+JS1nTQElUlwfqNDf a3W5rUA2S48enh6dWHxm tPR9PBVgHhVjsrklz5gs dQy4TBjcAyjzPhEl POFsdL88NKX8pS83Oh15 tQLgjHBen4bnnTt3RtWp ZHDeGGI7cKobSXjeu2Jt WZBeB12jdYWhd5N3 IGNvbGxhcHNlOyBlbXB0 uW1aXDuolrefk2wukwbs Gym1gl79pYFbl4S9xQA9 F8FnraF0VQKyjOCi JfmytZVOdT2mzgbli7dr ovfuQfKzXBLeOLs0ZDh9 OQGxgMwvKaJuJK02MMP3 IDWzhjCnN5OkLBAz pQmtQsS1i4Y1Im9LX9MQ YipdL5XOXUFILWhtnHU+ QV92so99H8NuGzcaEzx4 OJZtGBI6rIA2rZ9w WCDvFDjqc7H7bJN9Y2Cl lrPonm2ky7cjGYZtDZfg N88syJCpk2N4APYfbKL0 FSAcdDllHpLrbL75 Oyc+OQNyePvxt8PkWljn p3dfh0pycAf9QlrnDUPb ylYanWibYEK3h4YaQg3b HNGxyRU4oXW7nB7a CnPmZjN6YBivJ199GpZp jRBiSortC46tY2AxfYB+ VHAkChv1JHScsEyjXK3l S9PxBHRjkyquzSEr bSyqXP4qUHAxqyxqBTFj xF9jYZKqO7s1MpPoPaE1 FQfkI9DiXPDkaqytPg22 uL7mFpXvXgR9XXcj S4FymzJ9OPWvcMNwVQsj FYK0T68du5Z1ZQZhAQHq XQZ7bFV1bQ8vqEzpnanq bGVmdDsgdmVydGlj LUbfZMkgC754PNGuvOma PkNvZGluZyBEYXRlOiAg MDkvMjYvMjAyMzwvdGQ+ GBZoKXE5vJixUIHk eLRpOKvnCd1tzWwshJip VO4cIDOdgobjINMjnZ9y UZDczSQemMvrDO6rHLOz oqvbf033MdPyGNG0 APBxsRBcL4KkmS1nOgFe GSFmDEPyV0DzvEDeAAwh Y387JGgnZxK8GWMgqgOm C4WhPCGziEqbPjR7 i3V8Xw5Rz0JkitmpR5Vs mZTfHgNzAamhCVj1Z4Vq PjwvdHI+NB26DFJrOB24 MWg9ZRE6zAyrNJoe TPMzH3OrhR7kMvWvWKDc ZGRkOyc+PHRhYmxlIHdp ZHRoPScxMDAlJyBzdHls LV9yHx0qOWIgQQFb pIoboVPpIiSeh7juAPTs SSasHB7ufYomE7GklSK0 JJAmg6q6Ny18X72vN7Vl dXA+HURdjRL5kCL3 bG3tUqAqQfY6OUwhA921 YnIypZPkAjuxo9qdl6pi lHv7AoV6AYEoypLmiWrb JIA9x3ObJm36W47j IHdpZHRoPSIxNSUiIHZh rKzezi9apB0lAw8+PGNv jPV0vGL7zM9sHqDnCsS9 VXbjL968DpSrfTPj Gzzay9svh1byzKg2VcYi PDKkahMgoXzuJNS4t4Iz Ms84V6GqaPbls5PbGra0 fc52gBZbc5S6mXW5 Q5TcYWKxttgztYAjkIub ZP1eGLFxrabbPSCrnW2k YSBoN4v8KxDpMfL9PJsr Y4ExfxD3EUTljAWe GPLewNMEtA0traxjv0rv pucsZaGqBTXpZGx1SZu3 XZPzhCgnUwIrNRN1WkL8 XDG4fXSulK9lfTuf rpcohE9pLgw+ZKS7iDQc dETDTL2nFnlkmMP+PHRk TGU5sEjbYDnvTGGtlF5d WOJfW3k5IgLbHqK4 NTxjD2SzrjF4TISadJSk NFGalQBPmJ1pyzkvd1hs eswuEeSbGSUbLFv0FPc2 LWFsaWduOiBsZWZ0 HdV4RDM4cONqaA9rqMbi jwwitA3hDgf+QmlydGgg XQI2UJg8W3OsWpq8BASn eYtjGR6zyFUsVHju Uu3lbOjviApbWF0lRFYp alcqm593JeWjl2ojTMJm wZYzQAjmIQO8L36eo6K0 YJVnPCRwEFP1cSF0 hN0khSemnrtyvPJqtTwl faSijXmkWTxjDFprP037 BSBmgWinNdZyZMx5O0Sq Olt3DFRbyXbfII4j jZAhVMcmIb4kbZekxTpx TA3fTSUsgyzpq521CjKl u2miBXZqqTLqABojGOG4 W37sh9F4XFKsCQGl EEX7bXN7fP3ljArbhntz bGVmdDsgdmVydGljYWwt TCmiJ423OVNfqCctOoFj xHd4C0IsEmt7FIUs iMhpYQ1smYYoMDwuVg2i lOxsgNtbOY2sXOGklzjf i853HeLib0hxNEJhrYCe HXbzXPH1N73df2X6 XCXhBOTmNPA9lRW7kO9a bGlnbjogbGVmdDsgdmVy sBudXJomWNskN130FBSa cDsnPlBhdGllbnQg WZawDRo2C4OrBlejhTQ+ DH48TKKgRE16yDEvpLKj c9pfhZn0IgXzQESrJMM4 eXvaOOerz5ErDEBn Y33koAJeq4C3QYCmgBbu nHUwDzBxiEC3yL5uYFfl uynxp4knsnltRundz9ji ox39aX21T20jCPfe ZHRoPSIzMCUiIHZhbGln jo3mgD1rAa1+PGNvbCB3 dAO4vL7hIJXxEkX1ZMtr L342GwAdfUHaScsl i9yes3kniGb8QoZ3VMBo vqNlaHqaGKH2n0CxFf45 D53gOUsdLVXoFVAkCCKp EIErsCguuk3lfF9h Ii8+YUEfnTO2cFK0kL3d EhHvBgX2KQqmC618MsHh zHHhJhccG00iZ6FrrVZ+ NXTnYdz1LTOwqInz EK4jfPOrIJrcHd7kDPZ7 XiEeUxCvLPapR1UtDSTq nvweuarkyRV6HATfFNBw iS12Pf6adDciPPRp dUQCzJ8ekgdsi9gnyjud UwKtOTSwQIa4GDe5RFRd oFclTbZpCAR8AaT4SYM6 iCUxtY4dmLrxsrrw oD2sJ2HuSHAdtvlxWn18 pR2gUuNxYgD6GKguUie+ WL8ORZYFGDHDYUrKCPOQ PU60PE28aZYbq7W3 jEA9G0PvAQDqlgvxgnjh fJD6CKKfAWIgoW86hJPy GHboMq5tz9W0x125DESv EFPziU61Zx0qqKfj EWFznCHKjQ9ibmlqy5ax wgwnLlPgRNHwJXl0AKy1 SQBzkEsaKeDqOAZ5SvB9 HCM3lLEyvB5hfZux jtzywR9rAsz+MTIvMDUv VQe3CmgbqJF+PHRkIHN0 fMytRZgzNBZfnM3mDPFv U0z9BnIxLpB1UAec K0NyKHUnmidbCa66jH6l AmVgHwZ1TYcrM3KdmpI1 FKSpoJBwUFlvJLP0W06w m0E7AKCyPJKfCNU9 dYY6rF1sbXehgncjpMXh dDsgdmVydGljYWwtYWxp V309EWPyrOvkTdY5HTkk IXBmPN69BJ04eOYt c7Z5iGK8Y3GvCSHbbhho pbcrbOI6CBImUDGdbM93 gECkTVotBi7ph6B1v479 SKMkQHGvwY85Bb2w tCszPPUnbDQEgB6bbylm q8buuzhjWxHjQWCrOHu9 JZa3DQKbhCsiBcWlOLP1 IpG5SNP7pORiyF4p oDfwxfyojO3xOco+RkVN OKiXBM31NT66aPUzv4Q4 pDF7A4LlLFDuspfullfk nXW9YBPgPCWmnR48 rRFzXSccXm6tp3X3s374 SUOnSHXhuI08Yx4wqRfc MEZrvDGBnI1fpprlw2pj cjogIzAwMDAwMDt0 ABr7XIYpeSbiFpXeVUQ0 JnV5WSO4sQUqqO0dbUae pnfahJ8kIpl+F6PlANV3 JRQxx299G6DdDpqw dHI+DL37ZKMgWM27pJEz rVOla0nqaHs8DdXhZSLw FFT8jInrZJeno6EmVLGv Y10fxYKjn6L2OBDw xUytkRDcOtUupIS9rT5n RAtzzfkhw6oibfnpNqdr b0yals88cE92I77vBEva ZHRoPSIzMCUiIHZh cQuzrs5bgJ4zSw4+PGNv nQO4gSW7fA2pTjVdZrQ0 KBrfS431UhXpoNAbJrgg s5ylc5quiPn3UeRq HQYfkkBmtEemYCU7e1Ef Rz89N36rIPayPBQbRFKs ZFQrHZOwwZyzqa7dvY2s Ii8+XZ3ca4lvtd76 oG65nFX+FPVuEGU8gWfj IMqkOYMhcH0mTQxsWtF0 ECWeTeSwaQ36hBCvSXrc Km7uaQlfyRcqNO1n WXQyhzedv669WvMpx9bj CRMxnBXuRTqpZDF5U21y v2X4KKLbGPIbPYX2bGK7 jF1kbVmsrqcapUKr dDsgdmVydGljYWwtYWxp D304POFlvDywPiNdtSHl P8mmqmUFYX7aMxreoKN+ IFTzIUD2nCuaJFrv BWGcvK3uHCNfM1k3GbKy LhP2VXyyL3PztzK7PIJq zQQlKYVehZIOuP5qhotu l5phussaYdAnYTEc TVz9FNx2PJEvaGemObUv XSD3OkX3GFB1wHLexW9w jUmeyvjohN2eXfq+RklO OjwvdGQ+PHRkIHN0 lPrkDOvyISLktN3aVOOn U3s2GuZpJpF7FFtiI5Nw klY0HAIxnLPeFNOdoGFS xG3lxuceo1abapnd EfXeJSNuKPn4MTc0HPRu wVvcFxHhQTX1EmC8OWH6 zYIcyR6sjRcmvtkwiX6q Oyc+TVJOOjwvdGQ+ UMQlDHL4fCjnCYheHEZh cS6mJXUeE4r1RxLeNiO8 IJgoN7QybvR2MUNsjQNm ZNZoxSBXeJ6ensct w1lrgtrrHrYtSWQfUUn3 DYz5DCWghSnjXhAxJZP9 IxB3TEY8lXUijN8rlRbx xtlexQ4lNxb+UGF5 QNR7AV58KM19S1DpRyue dGFibGU+PHRhYmxlIHdp ZHRoPScxMDAlJyBzdHls MD2gKi6xPWRkKINw bGx (more content not included)... Normal [facility] C Bloodon 03-23-2023 C Blood No growth at 5 Days Normal [facility] Comment on above: Performed By: #### [id number] #### [facility] (DEFAULT) [address] [place] [address] Cult,Bloodon 03-23-2023 Cult,Blood Specimen Description .BLOOD Special Requests R HAND 2ML Culture NO GROWTH 5 DAYS Report Status FINAL 03/23/2023 [facility] Comment on above: Performed By: #### Jose EJEC, HEPXA #### [facility] [address] [place], [place] [id number] Manager Learning: Norman Blake MD Cult,Blood Specimen Description .BLOOD Special Requests L HAND 2ML Culture NO GROWTH 5 DAYS Report Status FINAL 03/23/2023 [facility] Comment on above: Performed By: #### Jam RODAS IOCAL #### [employer] [address] [place] [phone] Manager Learning: Norman Blake MD Basic Metab w/rfx MGon 03-20 Potassium [Moles/Vol] 3.3 mmol/L Low 3.7-5.3 [facility] Comment on above: Performed By: #### Jam RODAS IOCAL #### [facility] [address] [place] [phone] Manager Learning: Norman Blake MD Anion gap [Moles/Vol] 8 mmol/L Low 9-17 [facility] Comment on above: Performed By: #### Jam RODAS IOCAL #### [facility] [address] [place] [phone] Manager Learning: Norman Blake MD Calcium [Mass/Vol] 7.3 mg/dL Low 8.6-10.4 [facility] Comment on above: Performed By: #### Jam RODAS IOCAL #### [facility] [address] [place] [phone] Manager Learning: Norman Blake MD Chloride [Moles/Vol] 100 mmol/L Normal 98-107 [facility] Comment on above: Performed By: #### Jam RODAS IOCAL #### [facility] [address] [place] [phone] [employer] Learning: Norman Blake MD CO2 [Moles/Vol] 28 mmol/L Normal 20-31 [facility] Comment on above: Performed By: #### Jam RODAS IOCAL #### [facility] [address] [place] [phone] [employer]: Norman Blake MD Creatinine [Mass/Vol] 0.4 mg/dL Low 0.5-0.9 [facility] Comment on above: Performed By: #### Jam RODAS IOCAL #### [facility] [address] [place] [phone] Manager Learning: Norman Blake MD GFR/1.73 sq M.predicted among non-blacks MDRD (S/P/Bld) [Vol rate/Area] mL/min/{1.73_m2} Normal >60 [facility] Comment on above: Result Comment: These results [...] secretion. Performed By: #### IRAIDA DUBOISCAL #### [facility] [address] [place] [phone] [employer] Learning: Norman Blake MD Glucose [Mass/Vol] 226 mg/dL High 70-99 [facility] Comment on above: Performed By: #### Jam RODAS IOCAL #### [facility] [address] [place] [address] [employer]: Norman Blake MD Sodium [Moles/Vol] 136 mmol/L Normal 135-144 [facility] Comment on above: Performed By: #### Jam RODAS IOCAL #### [facility] [address] [place] [phone] Manager Learning: Norman Blake MD Urea nitrogen [Mass/Vol] 4 mg/dL Low 6-20 [facility] Comment on above: Performed By: #### IRAIDA DUBOISCAL #### [facility] [address] [place] [phone] Manager Learning: Norman Blake MD CBC with Diffon 03-20-2023 Abs. Basophil <0.03 Normal 0.00-0.20 [facility] Comment on above: Performed By: #### Jose WELCH HEPXA #### [facility] [address] [place] [phone] Manager Learning: Norman Blake MD Abs. Eosinophil <0.03 Normal 0.00-0.44 [facility] Comment on above: Performed By: #### Jose EJANNA, HEPXA #### [facility] [address] [place] [phone] Manager Learning: Norman Blake MD Abs.Imm.Granulocyte <0.03 Normal 0.00-0.30 [facility] Comment on above: Performed By: #### R EJEC, HEPXA #### [address] [phone] Manager Learning: Norman Blake MD Abs.Neutrophil (Seg) 2.46 k/uL Normal 1.50-8.10 [facility] Comment on above: Performed By: #### R EJEC, HEPXA #### [address] [address] Manager Learning: Norman Blake MD Basophils/100 WBC (Bld) 0 % Normal 0-2 [facility] Comment on above: Performed By: #### R EJEC, HEPXA #### [address] [phone] Manager Learning: Norman Blake MD Eosinophils/100 WBC (Bld) 0 % Low 1-4 [facility] Comment on above: Performed By: #### R EJEC, HEPXA #### [address] [phone] Manager Learning: Norman Blake MD Erythrocyte distribution width (RBC) [Ratio] 14.7 % High 11.8-14.4 [facility] Comment on above: Performed By: #### R EJEC, HEPXA #### [address] [address] Manager Learning: Norman Blake MD Hematocrit (Bld) [Volume fraction] 30.8 % Low 36.3-47.1 [facility] Comment on above: Performed By: #### R EJEC, HEPXA #### [address] [address] Manager Learning: Norman Blake MD Hemoglobin (Bld) [Mass/Vol] 9.8 g/dL Low 11.9-15.1 [facility] Comment on above: Performed By: #### R EJEC, HEPXA #### [address] [phone] [employer] Learning: Norman Blake MD Immature granulocytes/100 WBC (Bld) 0 % Normal 0 [facility] Comment on above: Performed By: #### R EJEC, HEPXA #### [address] [address] Manager Learning: Nomran Blake MD Lymphocytes (Bld) [#/Vol] 1.66 10*3/uL Normal 1.10-3.70 [facility] Comment on above: Performed By: #### R EJEC, HEPXA #### [address] [address] Manager Learning: Norman Blake MD Lymphocytes/100 WBC (Bld) 38 % Normal 24-43 [facility] Comment on above: Performed By: #### R EJEC, HEPXA #### [address] [address] Manager Learning: Norman Blake MD MCH (RBC) [Entitic mass] 24.8 pg Low 25.2-33.5 [facility] Comment on above: Performed By: #### R EJEC, HEPXA #### [address] [address] Manager Learning: Norman Blake MD MCHC (RBC) [Mass/Vol] 31.8 g/dL Normal 28.4-34.8 [facility] Comment on above: Performed By: #### R EJEC, HEPXA #### [address] [address] Manager Learning: Norman Blake MD MCV (RBC) [Entitic vol] 78.0 fL Low 82.6-102.[address] [facility] Comment on above: Performed By: #### R EJEC, HEPXA #### [address] [phone] Manager Learning: Norman Blake MD Monocytes (Bld) [#/Vol] 0.25 10*3/uL Normal 0.10-1.20 [facility] Comment on above: Performed By: #### R EJEC, HEPXA #### [address] [address] Manager Learning: Norman Blake MD Monocytes/100 WBC (Bld) 6 % Normal 3-[address] [facility] Comment on above: Performed By: #### R EJEC, HEPXA #### [address] [address] Manager Learning: Norman Blake MD Neutrophil (Seg) 56 % Normal 36-65 [facility] Comment on above: Performed By: #### R EJEC, HEPXA #### [address] [address] Manager Learning: Norman Blake MD NRBC Automated 0.0 per 100 WBC Normal 0.0 [facility] Comment on above: Performed By: #### R EJEC, HEPXA #### [address] [address] Manager Learning: Norman Blake MD Platelet mean volume (Bld) [Entitic vol] 10.5 fL Normal 8.1-13.5 [facility] Comment on above: Performed By: #### R EJEC, HEPXA #### [address] [address] Manager Learning: Norman Blake MD Platelets (Bld) [#/Vol] 154 10*3/uL Normal 138-453 [facility] Comment on above: Performed By: #### R EJEC, HEPXA #### [address] [address] Manager Learning: Norman Blake MD RBC (Bld) [#/Vol] 3.95 10*6/uL Normal 3.95-5.11 [facility] Comment on above: Performed By: #### R EJEC, HEPXA #### [facility] [address] [place] [phone] Manager Learning: Norman Blake MD RBC morphology finding Nom (Bld) ANISOCYTOSIS PRESENT Normal [facility] Comment on above: Result Comment: MICR OCYTOSIS PRESENT Performed By: #### R EJEC, HEPXA #### [facility] [address] [place] [address] 14931 Manager Learning: Norman Blake MD WBC (Bld) [#/Vol] 4.4 10*3/uL Normal 3.5-11.3 [facility] Comment on above: Performed By: #### Jose WELCH, HEPXA #### [facility] [address] [place] [address] 33610 Manager Learning: Norman Blake MD Heparin Anti-Xaon 03-20-2023 Heparin Anti-Xa 0.46 IU/L Normal [facility] Comment on above: Performed By: #### Jose WELCH, HEPXA #### [facility] [address] [place] [address] 22056 Manager Learning: Norman Blake MD Magnesiumon 03-20-2023 Magnesium [Mass/Vol] 2.0 mg/dL Normal 1.6-2.6 [facility] Comment on above: Performed By: #### Jam RODAS, IOCAL #### [facility] [address] [place] [address] 41138 Manager Learning: Norman Blake MD Troponinon 03-20-2023 Troponin, High Sens 295 ng/L Critically high 0-14 [facility] Comment on above: Result Comment: High Sensitivity Troponin values cannot be compared with other Troponin methodologies. Previous Alert Value Reported Performed By: #### Jam RODAS, IOCAL #### [facility] [address] [place] [address] 44058 Manager Learning: Norman Blake MD Troponin, High Sens 308 ng/L Critically high 0-14 [facility] Comment on above: Result Comment: High Sensitivity Troponin values cannot be compared with other Troponin methodologies. Previous Alert Value Reported Performed By: #### R EJEC, HEPXA #### [address] [address] Manager Learning: Norman Blake MD Basic Metabolic Profon 03-19 Potassium [Moles/Vol] 2.7 mmol/L Critically low 3.7-5.3 [facility] Comment on above: Performed By: #### H EPXA, TROPI, CDP, BMP #### [facility] [address] [place] [address] 00007 Manager Learning: Norman Blake MD Anion gap [Moles/Vol] 8 mmol/L Low 9-17 [facility] Comment on above: Performed By: #### H EPXA, TROPI, CDP, BMP #### [facility] [address] [place] [address] 96036 Manager Learning: Norman Blake MD Calcium [Mass/Vol] 6.0 mg/dL Low 8.6-10.4 [facility] Comment on above: Performed By: #### H EPXA, TROPI, CDP, BMP #### [facility] [address] [place] [address] 17732 Manager Learning: Norman Blake MD Chloride [Moles/Vol] 101 mmol/L Normal 98-107 [facility] Comment on above: Performed By: #### H EPXA, TROPI, CDP, BMP #### [facility] [address] [place] [address] 77047 Manager Learning: Norman Blake MD CO2 [Moles/Vol] 25 mmol/L Normal 20-31 [facility] Comment on above: Performed By: #### H EPXA, TROPI, CDP, BMP #### [facility] [address] [place] [address] 57004 Manager Learning: Norman Blake MD Creatinine [Mass/Vol] 0.3 mg/dL Low 0.5-0.9 [facility] Comment on above: Performed By: #### H EPXA, TROPI, CDP, BMP #### [address] [address] Manager Learning: Norman Blake MD GFR/1.73 sq M.predicted among non-blacks MDRD (S/P/Bld) [Vol rate/Area] mL/min/{1.73_m2} Normal >60 [facility] Comment on above: Result Comment: These results [...] #### H EPXA, TROPI, CDP, BMP #### [facility] [address] [place] [address] 85689 Manager Learning: Norman Blake MD Glucose [Mass/Vol] 156 mg/dL High 70-99 [facility] Comment on above: Performed By: #### H EPXA, TROPI, CDP, BMP #### [facility] [address] [place] [address] 13490 Manager Learning: Norman Blake MD Sodium [Moles/Vol] 134 mmol/L Low 135-144 [facility] Comment on above: Performed By: #### H EPXA, TROPI, CDP, BMP #### [facility] [address] [place] [address] 16967 Manager Learning: Norman Blake MD Urea nitrogen [Mass/Vol] 4 mg/dL Low 6-20 [facility] Comment on above: Performed By: #### H EPXA, TROPI, CDP, BMP #### [facility] [address] [place] [address] 59136 Manager Learning: Norman Blake MD Potassium [Moles/Vol] 2.5 mmol/L Critically low 3.7-5.3 [facility] Comment on above: Performed By: #### H EPXA, TROPI, CDP, BMP #### [facility] [address] [place] [address] 22250 Manager Learning: Norman Blake MD Anion gap [Moles/Vol] 7 mmol/L Low 9-17 [facility] Comment on above: Performed By: #### H EPXA, TROPI, CDP, BMP #### [facility] [address] [place] [address] 13473 Manager Learning: Norman Blake MD Calcium [Mass/Vol] 6.0 mg/dL Low 8.6-10.4 [facility] Comment on above: Performed By: #### H EPXA, TROPI, CDP, BMP #### [facility] [address] [place] [address] 59862 Manager Learning: Norman Blake MD Chloride [Moles/Vol] 100 mmol/L Normal 98-107 [facility] Comment on above: Performed By: #### H EPXA, TROPI, CDP, BMP #### [facility] [address] [place] [address] 26450 Manager Learning: Norman Blake MD CO2 [Moles/Vol] 23 mmol/L Normal 20-31 [facility] Comment on above: Performed By: #### H EPXA, TROPI, CDP, BMP #### [facility] [address] [place] [address] 32093 Manager Learning: Norman Blake MD Creatinine [Mass/Vol] 0.4 mg/dL Low 0.5-0.9 [facility] Comment on above: Performed By: #### H EPXA, TROPI, CDP, BMP #### [facility] [address] [place] [address] 95986 Manager Learning: Norman Blake MD GFR/1.73 sq M.predicted among non-blacks MDRD (S/P/Bld) [Vol rate/Area] mL/min/{1.73_m2} Normal >60 [facility] Comment on above: Result Comment: These results [...] EPXA, TROPI, CDP, BMP #### [facility] [address] [place] [address] 90242 Manager Learning: Norman Blake MD Glucose [Mass/Vol] 240 mg/dL High 70-99 [facility] Comment on above: Performed By: #### H EPXA, TROPI, CDP, BMP #### [facility] [address] [place] [address] 90947 Manager Learning: Norman Blake MD Sodium [Moles/Vol] 130 mmol/L Low 135-144 [facility] Comment on above: Performed By: #### H EPXA, TROPI, CDP, BMP #### [facility] [address] [place] [address] 67776 Manager Learning: Norman Blake MD Urea nitrogen [Mass/Vol] 6 mg/dL Normal 6-20 [facility] Comment on above: Performed By: #### H EPXA, TROPI, CDP, BMP #### [facility] [address] [place] [address] 94268 Manager Learning: Norman Blake MD C Urineon 03-19-2023 C Urine Urine Culture ordered as a result of parameters set on specific urine dip and urine microsopic results. >3 Organisms Consistent with Contamination Recollection suggested. Normal [facility] Comment on above: Performed By: #### [id number], [id number], [id number], [id number] ####[facility] (DEFAULT)[address] [place] [address] CBC with Diffon 03-19-2023 Abs. Basophil <0.03 Normal 0.00-0.20 [facility] Comment on above: Performed By: #### H EPXA, TROPI, CDP, BMP #### [facility] [address] [place] [address] 32615 Manager Learning: Norman Blake MD Abs. Eosinophil <0.03 Normal 0.00-0.44 [facility] Comment on above: Performed By: #### H EPXA, TROPI, CDP, BMP #### [facility] [address] [place] [address] 27108 Manager Learning: Norman Blake MD Abs.Imm.Granulocyte <0.03 Normal 0.00-0.30 [facility] Comment on above: Performed By: #### H EPXA, TROPI, CDP, BMP #### [facility] [address] [place] [address] 34494 Manager Learning: Norman Blake MD Abs.Neutrophil (Seg) 5.63 k/uL Normal 1.50-8.10 [facility] Comment on above: Performed By: #### H EPXA, TROPI, CDP, BMP #### [facility] [address] [place] [address] 29571 Manager Learning: Norman Blake MD Basophils/100 WBC (Bld) 0 % Normal 0-[address] [facility] Comment on above: Performed By: #### H EPXA, TROPI, CDP, BMP #### [facility] [address] [place] [address] 75977 Manager Learning: Norman Blake MD Eosinophils/100 WBC (Bld) 0 % Low 1-4 [facility] Comment on above: Performed By: #### H EPXA, TROPI, CDP, BMP #### [facility] [address] [place] [address] 21191 Manager Learning: Norman Blake MD Erythrocyte distribution width (RBC) [Ratio] 14.0 % Normal 11.8-14.4 [facility] Comment on above: Performed By: #### H EPXA, TROPI, CDP, BMP #### [facility] [address] [place] [address] 82454 Manager Learning: Norman Blake MD Hematocrit (Bld) [Volume fraction] 31.0 % Low 36.3-47.1 [facility] Comment on above: Performed By: #### H EPXA, TROPI, CDP, BMP #### [facility] [address] [place] [address] 86019 Manager Learning: Norman Blake MD Hemoglobin (Bld) [Mass/Vol] 10.9 g/dL Low 11.9-15.1 [facility] Comment on above: Performed By: #### H EPXA, TROPI, CDP, BMP #### [facility] [address] [place] [address] 20178 Manager Learning: Norman Blake MD Immature granulocytes/100 WBC (Bld) 0 % Normal 0 [facility] Comment on above: Performed By: #### H EPXA, TROPI, CDP, BMP #### [facility] [address] [place] [address] 87891 Manager Learning: Norman Blake MD Lymphocytes (Bld) [#/Vol] 1.34 10*3/uL Normal 1.10-3.70 [facility] Comment on above: Performed By: #### H EPXA, TROPI, CDP, BMP #### [facility] [address] [place] [address] 92154 Manager Learning: Norman Blake MD Lymphocytes/100 WBC (Bld) 18 % Low 24-43 [facility] Comment on above: Performed By: #### H EPXA, TROPI, CDP, BMP #### [facility] [place] [address] Manager Learning: Norman Blake MD MCH (RBC) [Entitic mass] 25.8 pg Normal 25.2-33.5 [facility] Comment on above: Performed By: #### H EPXA, TROPI, CDP, BMP #### [facility] [address] [place] [address] 69022 Manager Learning: Norman Blake MD MCHC (RBC) [Mass/Vol] 35.2 g/dL High 28.4-34.8 [facility] Comment on above: Performed By: #### H EPXA, TROPI, CDP, BMP #### [facility] [address] [place] [address] 23518 Manager Learning: Norman Blake MD MCV (RBC) [Entitic vol] 73.3 fL Low 82.6-102.[address] [facility] Comment on above: Performed By: #### H EPXA, TROPI, CDP, BMP #### [facility] [address] [place] [address] 19670 Manager Learning: Norman Blake MD Monocytes (Bld) [#/Vol] 0.41 10*3/uL Normal 0.10-1.20 [facility] Comment on above: Performed By: #### H EPXA, TROPI, CDP, BMP #### [facility] [address] [place] [address] 30319 Manager Learning: Norman Blake MD Monocytes/100 WBC (Bld) 6 % Normal 3-[address] [facility] Comment on above: Performed By: #### H EPXA, TROPI, CDP, BMP #### [facility] [address] [place] [address] 35275 Manager Learning: Norman Blake MD Neutrophil (Seg) 76 % High 36-65 [facility] Comment on above: Performed By: #### H EPXA, TROPI, CDP, BMP #### [address] [address] Manager Learning: Norman Blake MD NRBC Automated 0.0 per 100 WBC Normal 0.0 [facility] Comment on above: Performed By: #### H EPXA, TROPI, CDP, BMP #### [facility] [address] [place] [address] 25250 Manager Learning: Norman Blake MD Platelet mean volume (Bld) [Entitic vol] 9.5 fL Normal 8.1-13.5 [facility] Comment on above: Performed By: #### H EPXA, TROPI, CDP, BMP #### [facility] [address] [place] [address] 15240 Manager Learning: Norman Blake MD Platelets (Bld) [#/Vol] 189 10*3/uL Normal 138-453 [facility] Comment on above: Performed By: #### H EPXA, TROPI, CDP, BMP #### [facility] [address] [place] [address] 75282 Manager Learning: Norman Blake MD RBC (Bld) [#/Vol] 4.23 10*6/uL Normal 3.95-5.11 [facility] Comment on above: Performed By: #### H EPXA, TROPI, CDP, BMP #### [facility] [address] [place] [address] 40780 Manager Learning: Norman Blake MD RBC morphology finding Nom (Bld) MICROCYTOSIS PRESENT Normal [facility] Comment on above: Performed By: #### H EPXA, TROPI, CDP, BMP #### [address] [address] Manager Learning: Norman Blake MD WBC (Bld) [#/Vol] 7.4 10*3/uL Normal 3.5-11.3 [facility] Comment on above: Performed By: #### H EPXA, TROPI, CDP, BMP #### [address] [address] Manager Learning: Norman Blake MD Abs. Basophil <0.03 Normal 0.00-0.20 [facility] Comment on above: Performed By: #### H EPXA, TROPI, CDP, BMP #### [address] [address] Manager Learning: Norman Blake MD Abs. Eosinophil <0.03 Normal 0.00-0.44 [facility] Comment on above: Performed By: #### H EPXA, TROPI, CDP, BMP #### [address] [address] Manager Learning: Norman Blake MD Abs.Imm.Granulocyte <0.03 Normal 0.00-0.30 [facility] Comment on above: Performed By: #### H EPXA, TROPI, CDP, BMP #### [address] [address] Manager Learning: Norman Blake MD Abs.Neutrophil (Seg) 7.00 k/uL Normal 1.50-8.10 [facility] Comment on above: Performed By: #### H EPXA, TROPI, CDP, BMP #### [place] [address] Manager Learning: Norman Blake MD Basophils/100 WBC (Bld) 0 % Normal 0-[address] [facility] Comment on above: Performed By: #### H EPXA, TROPI, CDP, BMP #### [address] [address] Manager Learning: Norman Blake MD Eosinophils/100 WBC (Bld) 0 % Low 1-4 [facility] Comment on above: Performed By: #### H EPXA, TROPI, CDP, BMP #### [facility] [address] [place] [address] 84834 Manager Learning: Norman Blake MD Erythrocyte distribution width (RBC) [Ratio] 14.2 % Normal 11.8-14.4 [facility] Comment on above: Performed By: #### H EPXA, TROPI, CDP, BMP #### [facility] [address] [place] [address] 38735 Manager Learning: Norman Blake MD Hematocrit (Bld) [Volume fraction] 31.1 % Low 36.3-47.1 [facility] Comment on above: Performed By: #### H EPXA, TROPI, CDP, BMP #### [facility] [address] [place] [address] 75761 Manager Learning: Norman Blake MD Hemoglobin (Bld) [Mass/Vol] 10.8 g/dL Low 11.9-15.1 [facility] Comment on above: Performed By: #### H EPXA, TROPI, CDP, BMP #### [facility] [address] [place] [address] 60438 Manager Learning: Norman Blake MD Immature granulocytes/100 WBC (Bld) 0 % Normal 0 [facility] Comment on above: Performed By: #### H EPXA, TROPI, CDP, BMP #### [facility] [address] [place] [address] 80755 Manager Learning: Norman Blake MD Lymphocytes (Bld) [#/Vol] 0.85 10*3/uL Low 1.10-3.70 [facility] Comment on above: Performed By: #### H EPXA, TROPI, CDP, BMP #### [address] [address] Manager Learning: Norman Blake MD Lymphocytes/100 WBC (Bld) 10 % Low 24-43 [facility] Comment on above: Performed By: #### H EPXA, TROPI, CDP, BMP #### [address] [address] Manager Learning: Norman Blake MD MCH (RBC) [Entitic mass] 25.4 pg Normal 25.2-33.5 [facility] Comment on above: Performed By: #### H EPXA, TROPI, CDP, BMP #### [address] [address] Manager Learning: Norman Blake MD MCHC (RBC) [Mass/Vol] 34.7 g/dL Normal 28.4-34.8 [facility] Comment on above: Performed By: #### H EPXA, TROPI, CDP, BMP #### [address] [address] Manager Learning: Norman Blake MD MCV (RBC) [Entitic vol] 73.2 fL Low 82.6-102.[address] [facility] Comment on above: Performed By: #### H EPXA, TROPI, CDP, BMP #### [address] [address] Manager Learning: Norman Blake MD Monocytes (Bld) [#/Vol] 0.44 10*3/uL Normal 0.10-1.20 [facility] Comment on above: Performed By: #### H EPXA, TROPI, CDP, BMP #### [address] [address] Manager Learning: Norman Blake MD Monocytes/100 WBC (Bld) 5 % Normal 3-[address] [facility] Comment on above: Performed By: #### H EPXA, TROPI, CDP, BMP #### [facility] [address] [place] [address] 14376 Manager Learning: Norman Blake MD Neutrophil (Seg) 84 % High 36-65 [facility] Comment on above: Performed By: #### H EPXA, TROPI, CDP, BMP #### [facility] [address] [place] [address] 23207 Manager Learning: Norman Blake MD NRBC Automated 0.0 per 100 WBC Normal 0.0 [facility] Comment on above: Performed By: #### H EPXA, TROPI, CDP, BMP #### [facility] [address] [place] [address] 40179 Manager Learning: Norman Blake MD Platelet mean volume (Bld) [Entitic vol] 9.5 fL Normal 8.1-13.5 [facility] Comment on above: Performed By: #### H EPXA, TROPI, CDP, BMP #### [facility] [address] [place] [address] 74320 Manager Learning: Norman Blake MD Platelets (Bld) [#/Vol] 194 10*3/uL Normal 138-453 [facility] Comment on above: Performed By: #### H EPXA, TROPI, CDP, BMP #### [facility] [address] [place] [address] 99321 Manager Learning: Norman Blake MD RBC (Bld) [#/Vol] 4.25 10*6/uL Normal 3.95-5.11 [facility] Comment on above: Performed By: #### H EPXA, TROPI, CDP, BMP #### [facility] [address] [place] [address] 07372 Manager Learning: Norman Blake MD RBC morphology finding Nom (Bld) MICROCYTOSIS PRESENT Normal [facility] Comment on above: Performed By: #### H EPXA, TROPI, CDP, BMP #### [address] [address] Manager Learning: Norman Blake MD WBC (Bld) [#/Vol] 8.3 10*3/uL Normal 3.5-11.3 [facility] Comment on above: Performed By: #### H EPXA, TROPI, CDP, BMP #### [facility] [address] [place] [address] 37397 Manager Learning: Norman Blake MD Cult,Urineon 03-19-2023 Cult,Urine Specimen Description .CLEAN CATCH URINE Culture NO GROWTH Report Status FINAL 03/19/2023 Normal [facility] Comment on above: Performed By: #### U RC #### [address] [address] Manager Learning: Norman Blake MD Electrolyteson 03-19-2023 Anion gap [Moles/Vol] 10 mmol/L Normal 9-17 [facility] Comment on above: Performed By: #### Jam RODAS IOCAL #### [address] [address] Manager Learning: Norman Blake MD Chloride [Moles/Vol] 94 mmol/L Low 98-107 [facility] Comment on above: Performed By: #### Jam RODAS IOCAL #### [facility] [address] [place] [address] 97631 Manager Learning: Nomran Blake MD CO2 [Moles/Vol] 25 mmol/L Normal 20-31 [facility] Comment on above: Performed By: #### Jam RODAS IOCAL #### [facility] [address] [place] [address] 01627 Manager Learning: Norman Blake MD Potassium [Moles/Vol] 3.5 mmol/L Low 3.7-5.3 [facility] Comment on above: Performed By: #### D CLARK, IOCAL #### [facility] [address] [place] [address] 11484 Manager Learning: Norman Blake MD Sodium [Moles/Vol] 129 mmol/L Low 135-144 [facility] Comment on above: Performed By: #### D CLARK, IOCAL #### [facility] [address] [place] [address] 41520 Manager Learning: Norman Blake MD Anion gap [Moles/Vol] 11 mmol/L Normal 9-17 [facility] Comment on above: Performed By: #### H EPXA, TROPI, CDP, BMP #### [facility] [address] [place] [address] 10623 Manager Learning: Norman Blake MD Chloride [Moles/Vol] 95 mmol/L Low 98-107 [facility] Comment on above: Performed By: #### H EPXA, TROPI, CDP, BMP #### [facility] [address] [place] [address] 90863 Manager Learning: Norman Blake MD CO2 [Moles/Vol] 24 mmol/L Normal 20-31 [facility] Comment on above: Performed By: #### H EPXA, TROPI, CDP, BMP #### [facility] [address] [place] [address] 67109 Manager Learning: Norman Blake MD Potassium [Moles/Vol] 3.4 mmol/L Low 3.7-5.3 [facility] Comment on above: Performed By: #### H EPXA, TROPI, CDP, BMP #### [facility] [address] [place] [address] 56658 Manager Learning: Norman Blake MD Sodium [Moles/Vol] 130 mmol/L Low 135-144 [facility] Comment on above: Performed By: #### H EPXA, TROPI, CDP, BMP #### [facility] [address] [place], [place] [address], [place] [address] Manager Learning: Norman Blake MD Heparin Anti-Xaon 03-19-2023 Heparin Anti-Xa 0.37 IU/L Normal [facility] Comment on above: Performed By: #### R EJEC, HEPXA #### [facility] [address] [place] [address] 22638 Manager Learning: Norman Blake MD Heparin Anti-Xa 0.40 IU/L Normal [facility] Comment on above: Performed By: #### H EPXA, TROPI, CDP, BMP #### [facility] [address] [place] [address] 08405 Manager Learning: Norman Blake MD Heparin Anti-Xa 0.16 IU/L Normal [facility] Comment on above: Performed By: #### H EPXA, TROPI, CDP, BMP #### [facility] [address] [place] [address] 69146 Manager Learning: Norman Blake MD Heparin Anti-Xa 0.12 IU/L Normal [facility] Comment on above: Performed By: #### H EPXA, TROPI, CDP, BMP #### [facility] [address] [place] [address] 61319 Manager Learning: Norman Blake MD MRSA, DNA, Nasalon MRSA, DNA, Nasal Negative Normal NEG [facility] Comment on above: Result Comment: [...] Performed By: #### D CLARK, IOCAL #### [facility] [address] [place] [address] 04276 Manager Learning: Norman Blake MD Magnesiumon 03-19-2023 Magnesium [Mass/Vol] 1.9 mg/dL Normal 1.6-2.6 [facility] Comment on above: Performed By: #### D CLARK, IOCAL #### [facility] [address] [place] [address] 98822 Manager Learning: Norman Blake MD Magnesium [Mass/Vol] 1.9 mg/dL Normal 1.6-2.6 [facility] Comment on above: Performed By: #### H EPXA, TROPI, CDP, BMP #### [facility] [address] [place] [address] 94629 Manager Learning: Norman Blake MD Magnesium [Mass/Vol] 2.0 mg/dL Normal 1.6-2.6 [facility] Comment on above: Performed By: #### R EJEC, HEPXA #### [facility] [address] [place] [address] 54248 Manager Learning: Norman Blake MD Magnesium [Mass/Vol] 2.0 mg/dL Normal 1.6-2.6 [facility] Comment on above: Performed By: #### Jam RODAS, IOCAL #### [facility] [address] [place] [address] 05468 Manager Learning: Norman Blake MD Magnesium [Mass/Vol] 1.6 mg/dL Normal 1.6-2.6 [facility] Comment on above: Performed By: #### H EPXA, TROPI, CDP, BMP #### [facility] [address] [place] [address] 34307 Manager Learning: Norman Blake MD Phosphorus, Inorg.on 023 Phosphorus, Inorg. 1.7 mg/dL Low 2.6-4.5 [facility] Comment on above: Performed By: #### D CLARK, IOCAL #### [facility] [address] [place] [address] 21607 Manager Learning: Norman Blake MD Phosphorus, Inorg. 1.5 mg/dL Low 2.6-4.5 [facility] Comment on above: Performed By: #### H EPXA, TROPI, CDP, BMP #### [facility] [address] [place] [address] 03540 Manager Learning: Norman Blake MD Phosphorus, Inorg. 1.3 mg/dL Low 2.6-4.5 [facility] Comment on above: Performed By: #### R EJEC, HEPXA #### [facility] [address] [place] [address] 97655 Manager Learning: Norman Blake MD Phosphorus, Inorg. 1.1 mg/dL Low 2.6-4.5 [facility] Comment on above: Performed By: #### D CLARK, IOCAL #### [facility] [address] [place] [address] 61209 Manager Learning: Norman Blake MD Phosphorus, Inorg. 0.7 mg/dL Critically low 2.6-4.5 [facility] Comment on above: Performed By: #### H EPXA, TROPI, CDP, BMP #### [facility] [address] [place] [address] 03165 Manager Learning: Norman Blake MD Troponinon 03-19-2023 Troponin, High Sens 328 ng/L Critically high 0-14 [facility] Comment on above: Result Comment: High Sensitivity Troponin values cannot be compared with other Troponin methodologies. Previous Alert Value Reported Performed By: #### D CLARK, IOCAL #### [facility] [address] [place] [address] 37866 Manager Learning: Norman Blake MD Troponin, High Sens 389 ng/L Critically high 0-14 [facility] Comment on above: Result Comment: High Sensitivity Troponin values cannot be compared with other Troponin methodologies. Previous Alert Value Reported Performed By: #### H EPXA, TROPI, CDP, BMP #### [facility] [address] Manager Learning: Norman Blake MD Troponin, High Sens 481 ng/L Critically high 0-14 [facility] Comment on above: Result Comment: High Sensitivity Troponin values cannot be compared with other Troponin methodologies. Previous Alert Value Reported Performed By: #### H EPXA, TROPI, CDP, BMP #### [address] [address] Manager Learning: Norman Blake MD Troponin, High Sens 649 ng/L Critically high 0-14 [facility] Comment on above: Result Comment: High Sensitivity Troponin values cannot be compared with other Troponin methodologies. Previous Alert Value Reported Performed By: #### H EPXA, TROPI, CDP, BMP #### [address] [address] Manager Learning: Norman Blake MD Venous Blood Gaseson 023 Body Temp. 37.0 Normal [facility] Comment on above: Performed By: #### Jam RODAS IOCAL #### [address] [address] Manager Learning: Norman Blake MD Carboxy Hgb 1.1 % Normal 0-5 [facility] Comment on above: Result Comment: Reference Range: Non-Smokers 0-2% Average Smoker 2-4% Heavy Smoker <10% Performed By: #### Jam RODAS IOCAL #### [address] [address] Manager Learning: Norman Blake MD FIO2 Unknown Normal [facility] Comment on above: Performed By: #### Jam RODAS, IOCAL #### [facility] [address] [place] [address] 26104 Manager Learning: Norman Blake MD HCO3 (Bld) [Moles/Vol] 25.9 mmol/L Normal 24-[address] [facility] Comment on above: Performed By: #### D CLARK, IOCAL #### [facility] [address] [place] [address] Manager Learning: Norman Blake MD Oxygen saturation in Blood 97.3 % High 60.0-85.0 [facility] Comment on above: Performed By: #### D CLARK, IOCAL #### [facility] [address] [place] [address] 28655 Manager Learning: Norman Blake MD pCO2 40.3 mm Hg Normal 39-55 [facility] Comment on above: Performed By: #### Jam RODAS, IOCAL #### [facility] [address] [place] [address] 11143 Manager Learning: Norman Blake MD pH (Bld) 7.424 [pH] High 7.320-7.420 [facility] Comment on above: Performed By: #### Jam RODAS, IOCAL #### [facility] [address] [place] [address] 57386 Manager Learning: Norman Blake MD pO2 128.0 mm Hg High 30-50 [facility] Comment on above: Performed By: #### Jam RODAS, IOCAL #### [facility] [address] [place] [address] 64461 Manager Learning: Norman Blake MD Positive Base Excess 1.8 mmol/L Normal 0.0-2.0 [facility] Comment on above: Performed By: #### D CLARK, IOCAL #### [facility] [address] [place] [address] 23666 Manager Learning: Norman Blake MD .Auto Diff - Auto George % 3 % Normal -12 [facility] Comment on above: Performed By: #### 7 [id number], [id number], [id number], [id number], [id number], [id number] ####[facility] (DEFAULT)[address] [place] [address] 73167 Baso Abs# 0.1 x10 Normal 0.0-0.2 [facility] Comment on above: Performed By: #### 7 101435, [id number], [id number], [id number], [id number], [id number] ####[facility] (DEFAULT)[address] [place] [address] 54615 Basophils/100 WBC (Bld) 0.6 % Normal 0.2-2.0 [facility] Comment on above: Performed By: #### 7 484998, [id number], [id number], [id number], [id number], [id number] ####[facility] (DEFAULT)[address] [place] [address] 29092 Eos Abs# 0.0 x10 Normal 0.0-0.4 [facility] Comment on above: Performed By: #### 7 094499, [id number], [id number], [id number], [id number], [id number] ####[facility] (DEFAULT)[address] [place] [address] 45528 Eosinophils/100 WBC (Bld) 0.1 % Low 0.9-4.0 [facility] Comment on above: Performed By: #### 7 089276, [id number], [id number], [id number], [id number], [id number] ####[facility] (DEFAULT)[address] [place] [address] 34139 Lymph Abs# 1.4 x10 Normal 1.3-2.9 [facility] Comment on above: Performed By: #### 7 136817, [id number], [id number], [id number], [id number], [id number] ####[facility] (DEFAULT)[address] [place] [address] 99625 Lymphocytes/100 WBC (Bld) 6 % Low 14-48 [facility] Comment on above: Performed By: #### 7 480075, [id number], [id number], [id number], [id number], [id number] ####[facility] (DEFAULT)[address] [place] [address] 67776 George Abs# 0.7 x10 Normal 0.0-0.8 [facility] Comment on above: Performed By: #### 7 829644, [id number], 74251210, [id number], [id number], [id number] ####[facility] (DEFAULT)[address] [place] [address] 78091 Neut Abs# 19.8 x10 High 1.5-9.2 [facility] Comment on above: Performed By: #### 7 156342, [id number], 87846209, [id number], [id number], [id number] ####[facility] (DEFAULT)[address] [place] [address] Neutrophils/100 WBC (Bld) 90 % High 44-88 [facility] Comment on above: Performed By: #### 7 368503, [id number], [id number], [id number], [id number], [id number] ####[facility] (DEFAULT)[address] [place] [address] 95686 APTTon 03-18-2023 aPTT Coag (Bld) [Time] 20.5 s Low 23.0-36.5 [facility] Comment on above: Result Comment: IV Heparin Therapy Range: 66.0-92.0 sec Performed By: #### R EJEC, HEPXA #### [facility] [address] [place] [address] 25780 Manager Learning: Norman Blake MD Acet Levelon 03-18-2023 Acetaminoph Lvl <10 Normal 10-30 [facility] Comment on above: Performed By: #### 4 [id number] #### [facility] (DEFAULT) [address] [place] [address] 72374 Arterial Blood Gas Standardo n 03-18-2023 Cami Test Art Positive Normal [facility] Comment on above: Performed By: #### 1 [id number] ####[facility] (DEFAULT)[address] [place] [address] 10236 Breakpoint Hemo Normal [facility] Comment on above: Performed By: #### 1 [id number] ####[facility] (DEFAULT)[address] [place] [address] Device Room Air Normal [facility] Comment on above: Performed By: #### 1 [id number] ####[facility] (DEFAULT)[address] [place] [address] 90587 Fio2 Art 21.0 % Normal 21.0-100.0 [facility] Comment on above: Performed By: #### 1 [id number] ####[facility] (DEFAULT)[address] [place] [address] 34545 Oxygen saturation in Blood 96.9 % Normal 95.0-100.0 [facility] Comment on above: Performed By: #### 1 [id number] ####[facility] (DEFAULT)[address] [place] [address] pH Art 6.89 Critically abnormal 7.37-7.44 [facility] Comment on above: Result Comment: Crit ical pH results and PCO2 result will not calculate due to it being < 9.5 results given to Radha Cintron @2318 03/18/2023 per Anjana Garcia RRT. RBV Performed By: #### 1 [id number] ####[facility] (DEFAULT)[address] [place] [address] 88166 pO2 Art 144 mmHg High 75-100 [facility] Comment on above: Performed By: #### 1 [id number] ####[facility] (DEFAULT)[address] [place] [address] Puncture Site Right Radial Normal [facility] Comment on above: Performed By: #### 1 [id number] ####[facility] (DEFAULT)[address] [place] [address] Rate: 38 Invalid Interpretation Code [facility] Comment on above: Performed By: #### 1 [id number] ####[facility] (DEFAULT)[address] [place] [address] 07625 BNP.on 03-18-2023 Natriuretic peptide B (Bld) [Mass/Vol] 170.0 pg/mL High 0.0-100.0 [facility] Comment on above: Result Comment: BNP results greater than 100 pg/mL are considered abnormal and suggestive of patients with CHF. Higher BNP concentrations measured in the first 72 hours after an acute coronary syndorme are associated with an increased risk of , myocardial infarction, and CHF. Performed By: #### 4 [id number] #### [facility] (DEFAULT) [address] [place] [address] Basic Metabolic Profon 03-18 Potassium [Moles/Vol] 2.2 mmol/L Critically low 3.7-5.3 [facility] Comment on above: Performed By: #### Jam RODAS IOCAL #### [facility] [address] [place] [address] 68410 Manager Learning: Norman Blake MD Anion gap [Moles/Vol] 11 mmol/L Normal 9-17 [facility] Comment on above: Performed By: #### Jam RODAS IOCAL #### [facility] [address] [place] [address] 32288 Manager Learning: Norman Blake MD Calcium [Mass/Vol] 6.4 mg/dL Low 8.6-10.4 [facility] Comment on above: Performed By: #### Jam RODAS, IOCAL #### [facility] [address] [place] [address] 95737 Manager Learning: Norman Blake MD Chloride [Moles/Vol] 101 mmol/L Normal 98-107 [facility] Comment on above: Performed By: #### Jam RODAS, IOCAL #### [facility] [address] [place] [address] 13806 Manager Learning: Norman Blake MD CO2 [Moles/Vol] 19 mmol/L Low 20-31 [facility] Comment on above: Performed By: #### Jam RODAS, IOCAL #### [facility] [address] [place] [address] 07056 Manager Learning: Norman Blake MD Creatinine [Mass/Vol] 0.4 mg/dL Low 0.5-0.9 [facility] Comment on above: Performed By: #### Jam RODAS IOCAL #### [facility] [address] [place] [address] 84783 Manager Learning: Norman Blake MD GFR/1.73 sq M.predicted among non-blacks MDRD (S/P/Bld) [Vol rate/Area] mL/min/{1.73_m2} Normal >60 [facility] Comment on above: Result Comment: These results [...] #### Jam RODAS IOCAL #### [facility] [address] [place] [address] 15586 Manager Learning: Norman Blake MD Glucose [Mass/Vol] 149 mg/dL High 70-99 [facility] Comment on above: Performed By: #### Jam RODAS IOCAL #### [facility] [address] [place] [address] 58749 Manager Learning: Norman Blake MD Sodium [Moles/Vol] 131 mmol/L Low 135-144 [facility] Comment on above: Performed By: #### Jam RODAS IOCAL #### [facility] [address] [place] [address] 63310 Manager Learning: Norman Blake MD Urea nitrogen [Mass/Vol] 8 mg/dL Normal 6-20 [facility] Comment on above: Performed By: #### Jam RODAS, IOCAL #### [facility] [address] [place] [address] 22291 Manager Learning: Norman Blake MD Potassium [Moles/Vol] 2.5 mmol/L Critically low 3.7-5.3 [facility] Comment on above: Result Comment: TEST CONFIRMED Performed By: #### R EJEC, HEPXA #### [facility] [address] [place] [address] 37059 Manager Learning: Norman Blake MD Anion gap [Moles/Vol] 12 mmol/L Normal 9-17 [facility] Comment on above: Performed By: #### R EJEC, HEPXA #### [address] [address] Manager Learning: Norman Blake MD Calcium [Mass/Vol] 6.5 mg/dL Low 8.6-10.4 [facility] Comment on above: Performed By: #### R EJEC, HEPXA #### [address] [address] Manager Learning: Norman Blake MD Chloride [Moles/Vol] 104 mmol/L Normal 98-107 [facility] Comment on above: Performed By: #### R EJEC, HEPXA #### [address] [address] Manager Learning: Norman Blake MD CO2 [Moles/Vol] 13 mmol/L Low 20-31 [facility] Comment on above: Performed By: #### R EJEC, HEPXA #### [facility] [address] [place] [address] 95963 Manager Learning: Norman Blake MD Creatinine [Mass/Vol] 0.5 mg/dL Normal 0.5-0.9 [facility] Comment on above: Performed By: #### R EJEC, HEPXA #### [facility] [address] [place] [address] 33220 Manager Learning: Norman Blake MD GFR/1.73 sq M.predicted among non-blacks MDRD (S/P/Bld) [Vol rate/Area] mL/min/{1.73_m2} Normal >60 [facility] Comment on above: Result Comment: These results [...] #### R EJEC, HEPXA #### [facility] [address] [place] [address] 81606 Manager Learning: Norman Blake MD Glucose [Mass/Vol] 219 mg/dL High 70-99 [facility] Comment on above: Performed By: #### R EJEC, HEPXA #### [facility] [address] [place] [address] 50287 Manager Learning: Norman Blake MD Sodium [Moles/Vol] 129 mmol/L Low 135-144 [facility] Comment on above: Performed By: #### R EJEC, HEPXA #### [facility] [address] [place] [address] 14421 Manager Learning: Norman Blake MD Urea nitrogen [Mass/Vol] 10 mg/dL Normal 6-20 [facility] Comment on above: Performed By: #### R EJEC, HEPXA #### [facility] [address] [place] [address] 89555 Manager Learning: Norman Blake MD Anion gap [Moles/Vol] 18 mmol/L High 9-17 [facility] Comment on above: Performed By: #### R EJEC, HEPXA #### [facility] [address] [place] [address] 14471 Manager Learning: Norman Blake MD CO2 [Moles/Vol] 7 mmol/L Critically low 20-31 [facility] Comment on above: Performed By: #### R EJEC, HEPXA #### [address] [address] Manager Learning: Norman Blake MD Calcium [Mass/Vol] 6.5 mg/dL Low 8.6-10.4 [facility] Comment on above: Performed By: #### R EJEC, HEPXA #### [facility] [address] [place] [address] 06553 Manager Learning: Norman Blake MD Chloride [Moles/Vol] 105 mmol/L Normal 98-107 [facility] Comment on above: Performed By: #### R EJEC, HEPXA #### [address] [address] Manager Learning: Norman Blake MD Creatinine [Mass/Vol] 0.7 mg/dL Normal 0.5-0.9 [facility] Comment on above: Performed By: #### R EJEC, HEPXA #### [address] [address] Manager Learning: Norman Blake MD GFR/1.73 sq M.predicted among non-blacks MDRD (S/P/Bld) [Vol rate/Area] mL/min/{1.73_m2} Normal >60 [facility] Comment on above: Result Comment: These results [...] Performed By: #### R EJEC, HEPXA #### [address] [address] Manager Learning: Norman Blake MD Glucose [Mass/Vol] 267 mg/dL High 70-99 [facility] Comment on above: Performed By: #### R EJEC, HEPXA #### [address] [address] Manager Learning: Norman Blake MD Potassium [Moles/Vol] 3.8 mmol/L Normal 3.7-5.3 [facility] Comment on above: Performed By: #### R EJEC, HEPXA #### [address] [address] Manager Learning: Norman Blake MD Sodium [Moles/Vol] 130 mmol/L Low 135-144 [facility] Comment on above: Performed By: #### R EJEC, HEPXA #### [address] [address] Manager Learning: Norman Blake MD Urea nitrogen [Mass/Vol] 15 mg/dL Normal 6-20 [facility] Comment on above: Performed By: #### R EJEC, HEPXA #### [address] [address] Manager Learning: Norman Blake MD Anion Gap Unable to calculate anion gap due to CO2 less than 6. Normal 9-17 [facility] Comment on above: Performed By: #### H EPXA, TROPI, CDP, BMP #### [address] [address] Manager Learning: Norman Blake MD Calcium [Mass/Vol] 6.4 mg/dL Low 8.6-10.4 [facility] Comment on above: Performed By: #### H EPXA, TROPI, CDP, BMP #### [address] [address] Manager Learning: Norman Blake MD Chloride [Moles/Vol] 104 mmol/L Normal 98-107 [facility] Comment on above: Performed By: #### H EPXA, TROPI, CDP, BMP #### [facility] [place] [address] Manager Learning: Norman Blake MD CO2 [Moles/Vol] mmol/L Critically low 20-31 [facility] Comment on above: Performed By: #### H EPXA, TROPI, CDP, BMP #### [facility] [address] [place] [address] 91528 Manager Learning: Norman Blake MD Creatinine [Mass/Vol] 0.7 mg/dL Normal 0.5-0.9 [facility] Comment on above: Performed By: #### H EPXA, TROPI, CDP, BMP #### [address] [address] Manager Learning: Norman Blake MD GFR/1.73 sq M.predicted among non-blacks MDRD (S/P/Bld) [Vol rate/Area] mL/min/{1.73_m2} Normal >60 [facility] Comment on above: Result Comment: These results [...] EPXA, TROPI, CDP, BMP #### [facility] [address] [place] [address] 30192 Manager Learning: Norman Blake MD Glucose [Mass/Vol] 254 mg/dL High 70-99 [facility] Comment on above: Performed By: #### H EPXA, TROPI, CDP, BMP #### [facility] [address] [place] [address] 39000 Manager Learning: Norman Blake MD Potassium [Moles/Vol] 3.8 mmol/L Normal 3.7-5.3 [facility] Comment on above: Performed By: #### H EPXA, TROPI, CDP, BMP #### [facility] [address] [place] [address] 68063 Manager Learning: Norman Blake MD Sodium [Moles/Vol] 129 mmol/L Low 135-144 [facility] Comment on above: Performed By: #### H EPXA, TROPI, CDP, BMP #### [facility] [address] [place] [address] 94702 Manager Learning: Norman Blake MD Urea nitrogen [Mass/Vol] 17 mg/dL Normal 6-20 [facility] Comment on above: Performed By: #### H EPXA, TROPI, CDP, BMP #### [facility] [address] [place] [address] 48846 Manager Learning: Norman Blake MD Beta Hydroxybutyrateon 03-18 Beta Hydroxybutyrate 3.84 mmol/L High 0.02-0.27 [facility] Comment on above: Performed By: #### H EPXA, TROPI, CDP, BMP #### [facility] [address] [place] [address] 18233 Manager Learning: Norman Blake MD CBCon 03-18-2023 Erythrocyte distribution width (RBC) [Ratio] 14.2 % Normal 11.8-14.4 [facility] Comment on above: Performed By: #### R EJEC, HEPXA #### [facility] [address] [place] [address] 27724 Manager Learning: Norman Blake MD Hematocrit (Bld) [Volume fraction] 37.1 % Normal 36.3-47.1 [facility] Comment on above: Performed By: #### R EJEC, HEPXA #### [facility] [address] [place] [address] 70328 Manager Learning: Norman Blake MD Hemoglobin (Bld) [Mass/Vol] 11.7 g/dL Low 11.9-15.1 [facility] Comment on above: Performed By: #### R EJEC, HEPXA #### [address] [address] Manager Learning: Norman Blake MD MCH (RBC) [Entitic mass] 24.9 pg Low 25.2-33.5 [facility] Comment on above: Performed By: #### R EJEC, HEPXA #### [address] [address] Manager Learning: Norman Blake MD MCHC (RBC) [Mass/Vol] 31.5 g/dL Normal 28.4-34.8 [facility] Comment on above: Performed By: #### R EJEC, HEPXA #### [address] [address] Manager Learning: Norman Blake MD MCV (RBC) [Entitic vol] 79.1 fL Low 82.6-102.[address] [facility] Comment on above: Performed By: #### R EJEC, HEPXA #### [address] [address] Manager Learning: Norman Blake MD NRBC Automated 0.0 per 100 WBC Normal 0.0 [facility] Comment on above: Performed By: #### R EJEC, HEPXA #### [address] [address] Manager Learning: Norman Blake MD Platelet mean volume (Bld) [Entitic vol] 10.0 fL Normal 8.1-13.5 [facility] Comment on above: Performed By: #### R EJEC, HEPXA #### [address] [address] Manager Learning: Norman Blake MD Platelets (Bld) [#/Vol] 232 10*3/uL Normal 138-453 [facility] Comment on above: Performed By: #### R EJEC, HEPXA #### [facility] [address] [place], [place] [id number] Manager Learning: Norman Blake MD RBC (Bld) [#/Vol] 4.69 10*6/uL Normal 3.95-5.11 [facility] Comment on above: Performed By: #### R EJEC, HEPXA #### [facility] [address] [place] [address] Manager Learning: Norman Blake MD WBC (Bld) [#/Vol] 16.6 10*3/uL High 3.5-11.3 [facility] Comment on above: Performed By: #### R EJEC, HEPXA #### [address] [address] Manager Learning: Norman Blake MD CBC w/ Auto Diffon 3 Erythrocyte distribution width (RBC) [Ratio] 15.6 % High 11.5-15.0 [facility] Comment on above: Order Comment: Patie nt is a hard stick. 3 Nurses have tried to do an IV. I am waiting to see if they get the IV started. 03/17/2023 22:08:47 EDT Performed By: #### 7 [id number], [id number], [id number], [id number], [id number], [id number] ####[facility] (DEFAULT)[address] [place] [address] Hematocrit (Bld) [Volume fraction] 47.0 % High 33.7-40.4 [facility] Comment on above: Order Comment: Patie nt is a hard stick. 3 Nurses have tried to do an IV. I am waiting to see if they get the IV started. 03/17/2023 22:08:47 EDT Performed By: #### 7 [id number], [id number], [id number], [id number], [id number], [id number] ####[facility] (DEFAULT)[address] [place] [address] 90762 Hemoglobin (Bld) [Mass/Vol] 14.5 g/dL Normal 11.3-15.9 [facility] Comment on above: Order Comment: Patie nt is a hard stick. 3 Nurses have tried to do an IV. I am waiting to see if they get the IV started. 03/17/2023 22:08:47 EDT Performed By: #### 7 [id number], [id number], [id number], [id number], [id number], [id number] ####[facility] (DEFAULT)[address] [place] [address] 97207 Man Diff? Auto Invalid Interpretation Code [facility] Comment on above: Order Comment: Patie nt is a hard stick. 3 Nurses have tried to do an IV. I am waiting to see if they get the IV started. 03/17/2023 22:08:47 EDT Performed By: #### 7 [id number], [id number], [id number], [id number], [id number], [id number] ####[facility] (DEFAULT)[address] [place] [address] 92195 MCH (RBC) [Entitic mass] 25 pg Normal 24-34 [facility] Comment on above: Order Comment: Patie nt is a hard stick. 3 Nurses have tried to do an IV. I am waiting to see if they get the IV started. 03/17/2023 22:08:47 EDT Performed By: #### 7 [id number], [id number], [id number], [id number], [id number], [id number] ####[facility] (DEFAULT)[address] [place] [address] 35610 MCHC (RBC) [Mass/Vol] 31 g/dL Normal 26-37 [facility] Comment on above: Order Comment: Patie nt is a hard stick. 3 Nurses have tried to do an IV. I am waiting to see if they get the IV started. 03/17/2023 22:08:47 EDT Performed By: #### 7 129605, [id number], [id number], [id number], [id number], [id number] ####[facility] (DEFAULT)[address] [place] [address] 34457 MCV (RBC) [Entitic vol] 81 fL Normal 81-100 [facility] Comment on above: Order Comment: Patie nt is a hard stick. 3 Nurses have tried to do an IV. I am waiting to see if they get the IV started. 03/17/2023 22:08:47 EDT Performed By: #### 7 011737, [id number], [id number], [id number], [id number], [id number] ####[facility] (DEFAULT)[address] [place] [address] 99692 Platelet 381 x10 Normal 138-427 [facility] Comment on above: Order Comment: Patie nt is a hard stick. 3 Nurses have tried to do an IV. I am waiting to see if they get the IV started. 03/17/2023 22:08:47 EDT Performed By: #### 7 [id number], [id number], [id number], [id number], [id number], [id number] ####[facility] (DEFAULT)[address] [place] [address] 70592 Platelet mean volume (Bld) [Entitic vol] 8.3 fL Normal 6.3-10.2 [facility] Comment on above: Order Comment: Patie nt is a hard stick. 3 Nurses have tried to do an IV. I am waiting to see if they get the IV started. 03/17/2023 22:08:47 EDT Performed By: #### 7 885154, [id number], [id number], [id number], [id number], [id number] ####[facility] (DEFAULT)[address] [place] [address] 89460 RBC 5.80 x10 High 3.70-5.30 [facility] Comment on above: Order Comment: Patie nt is a hard stick. 3 Nurses have tried to do an IV. I am waiting to see if they get the IV started. 03/17/2023 22:08:47 EDT Performed By: #### 7 [id number], [id number], [id number], [id number], [id number], [id number] ####[facility] (DEFAULT)[address] [place] [address] 21828 WBC 22.0 x10 High 3.5-10.5 [facility] Comment on above: Order Comment: Patie nt is a hard stick. 3 Nurses have tried to do an IV. I am waiting to see if they get the IV started. 03/17/2023 22:08:47 EDT Result Comment: Slid e Reviewed Performed By: #### 7 905167, [id number], [id number], [id number], [id number], [id number] ####[facility] (DEFAULT)[address] [place] [address] 02383 CBC with Diffon 03-18-2023 Abs. Basophil 0.03 k/uL Normal 0.00-0.20 [facility] Comment on above: Performed By: #### H EPXA, TROPI, CDP, BMP #### [facility] [address] [place] [address] Manager Learning: Norman Blake MD Abs.Imm.Granulocyte 0.11 k/uL Normal 0.00-0.30 [facility] Comment on above: Performed By: #### H EPXA, TROPI, CDP, BMP #### [facility] [address] [place] [address] 39543 Manager Learning: Norman Blake MD Abs.Neutrophil (Seg) 16.38 k/uL High 1.50-8.10 [facility] Comment on above: Performed By: #### H EPXA, TROPI, CDP, BMP #### [facility] [address] [place] [address] 13629 Manager Learning: Norman Blake MD Basophils/100 WBC (Bld) 0 % Normal 0-[address] [facility] Comment on above: Performed By: #### H EPXA, TROPI, CDP, BMP #### [facility] [address] [place] [address] 51790 Manager Learning: Norman Blake MD Eosinophils (Bld) [#/Vol] 0.06 10*3/uL Normal 0.00-0.44 [facility] Comment on above: Performed By: #### H EPXA, TROPI, CDP, BMP #### [address] [address] Manager Learning: Norman Blake MD Eosinophils/100 WBC (Bld) 0 % Low 1-4 [facility] Comment on above: Performed By: #### H EPXA, TROPI, CDP, BMP #### [facility] [address] [place] [address]60 Manager Learning: Norman Blake MD Erythrocyte distribution width (RBC) [Ratio] 13.9 % Normal 11.8-14.4 [facility] Comment on above: Performed By: #### H EPXA, TROPI, CDP, BMP #### [facility] [address] [place] [address]8822 Manager Learning: Norman Blake MD Hematocrit (Bld) [Volume fraction] 36.6 % Normal 36.3-47.1 [facility] Comment on above: Performed By: #### H EPXA, TROPI, CDP, BMP #### [facility] [address] [place] [address] 65337 Manager Learning: Norman Blake MD Hemoglobin (Bld) [Mass/Vol] 11.8 g/dL Low 11.9-15.1 [facility] Comment on above: Performed By: #### H EPXA, TROPI, CDP, BMP #### [facility] [address] [place] [address] 50995 Manager Learning: Norman Blake MD Immature granulocytes/100 WBC (Bld) 1 % High 0 [facility] Comment on above: Performed By: #### H EPXA, TROPI, CDP, BMP #### [address] [address] Manager Learning: Norman Blake MD Lymphocytes (Bld) [#/Vol] 2.92 10*3/uL Normal 1.10-3.70 [facility] Comment on above: Performed By: #### H EPXA, TROPI, CDP, BMP #### [address] [address] Manager Learning: Norman Blake MD Lymphocytes/100 WBC (Bld) 14 % Low 24-43 [facility] Comment on above: Performed By: #### H EPXA, TROPI, CDP, BMP #### [address] [address] Manager Learning: Norman Blake MD MCH (RBC) [Entitic mass] 25.4 pg Normal 25.2-33.5 [facility] Comment on above: Performed By: #### H EPXA, TROPI, CDP, BMP #### [address] [address] Manager Learning: Norman Blake MD MCHC (RBC) [Mass/Vol] 32.2 g/dL Normal 28.4-34.8 [facility] Comment on above: Performed By: #### H EPXA, TROPI, CDP, BMP #### [address] [address] Manager Learning: Norman Blake MD MCV (RBC) [Entitic vol] 78.7 fL Low 82.6-102.[address] [facility] Comment on above: Performed By: #### H EPXA, TROPI, CDP, BMP #### [address] [address] Manager Learning: Norman Blake MD Monocytes (Bld) [#/Vol] 0.92 10*3/uL Normal 0.10-1.20 [facility] Comment on above: Performed By: #### H EPXA, TROPI, CDP, BMP #### [address] [address] Manager Learning: Norman Blake MD Monocytes/100 WBC (Bld) 5 % Normal 3-[address] [facility] Comment on above: Performed By: #### H EPXA, TROPI, CDP, BMP #### [address] [address] Manager Learning: Norman Blake MD Neutrophil (Seg) 80 % High 36-65 [facility] Comment on above: Performed By: #### H EPXA, TROPI, CDP, BMP #### [address] [address] Manager Learning: Norman Blake MD NRBC Automated 0.0 per 100 WBC Normal 0.0 [facility] Comment on above: Performed By: #### H EPXA, TROPI, CDP, BMP #### [address] [address] Manager Learning: Norman Blake MD Platelet mean volume (Bld) [Entitic vol] 9.6 fL Normal 8.1-13.5 [facility] Comment on above: Performed By: #### H EPXA, TROPI, CDP, BMP #### [address] [address] Manager Learning: Norman Blake MD Platelets (Bld) [#/Vol] 264 10*3/uL Normal 138-453 [facility] Comment on above: Performed By: #### H EPXA, TROPI, CDP, BMP #### [address] [address] Manager Learning: Norman Blake MD RBC (Bld) [#/Vol] 4.65 10*6/uL Normal 3.95-5.11 [facility] Comment on above: Performed By: #### H EPXA, TROPI, CDP, BMP #### [facility] [address] [place] [address] Manager Learning: Norman Blake MD RBC morphology finding Nom (Bld) MICROCYTOSIS PRESENT Normal [facility] Comment on above: Performed By: #### H EPXA, TROPI, CDP, BMP #### [email or web address] [address] [place] [address] Manager Learning: Norman Blake MD WBC (Bld) [#/Vol] 20.4 10*3/uL High 3.5-11.3 [facility] Comment on above: Performed By: #### H EPXA, TROPI, CDP, BMP #### [facility] [address] [place] [address] Manager Learning: Norman Blake MD CMP Standardon 03-18-2023 Anion Gap see comment Invalid Interpretation Code 5.0-19.0 [facility] Comment on above: Result Comment: Unab le to calculate Performed By: #### 5 [id number], [id number], [id number] ####[facility] (DEFAULT)[address] [place] [address] Breakpoint Chem Normal [facility] Comment on above: Performed By: #### 5 [id number], [id number], [id number] ####[facility] (DEFAULT)[address] [place] [address] eGFR Non AA >60 Invalid Interpretation Code [facility] Comment on above: Performed By: #### 5 [id number], [id number], [id number] ####[facility] (DEFAULT)[address] [place] [address] 96251 eGFR AA >60 Invalid Interpretation Code [facility] Comment on above: Performed By: #### 5 [id number], [id number], [id number] ####[facility] (DEFAULT)[address] [place] [address] Albumin [Mass/Vol] 3.8 g/dL Normal 3.5-5.0 [facility] Comment on above: Performed By: #### 5 [id number], [id number], [id number] ####[facility] (DEFAULT)[address] [place] [address] 72016 Albumin/Globulin [Mass ratio] 1.1 {ratio} Low 1.4-2.6 [facility] Comment on above: Performed By: #### 5 [id number], [id number], [id number] ####[facility] (DEFAULT)[address] [place] [address] 27909 Alk Phos 84 IU/L Normal 32-91 [facility] Comment on above: Performed By: #### 5 [id number], [id number], [id number] ####[facility] (DEFAULT)[address] [place] [address] 75775 ALT [Catalytic activity/Vol] 20.0 U/L Normal 14.0-54.0 [facility] Comment on above: Performed By: #### 5 [id number], [id number], [id number] ####[facility] (DEFAULT)[address] [place] [address] 30925 AST [Catalytic activity/Vol] 37 U/L Normal 15-41 [facility] Comment on above: Performed By: #### 5 [id number], [id number], [id number] ####[facility] (DEFAULT)[address] [place] [address] 28233 Bili Total 1.6 mg/dL High 0.3-1.2 [facility] Comment on above: Performed By: #### 5 [id number], [id number], [id number] ####[facility] (DEFAULT)[address] [place] [address] 61464 Calcium [Mass/Vol] 7.2 mg/dL Low 8.9-10.3 [facility] Comment on above: Performed By: #### 5 [id number], [id number], [id number] ####[facility] (DEFAULT)[address] [place] [address] 96826 Chloride [Moles/Vol] 104 mmol/L Normal 101-111 [facility] Comment on above: Performed By: #### 5 [id number], [id number], [id number] ####[facility] (DEFAULT)[address] [place] [address] 90817 Creatinine [Mass/Vol] 0.92 mg/dL Normal 0.60-1.30 [facility] Comment on above: Performed By: #### 5 [id number], [id number], [id number] ####[facility] (DEFAULT)[address] [place] [address] 32724 Globulin (S) [Mass/Vol] 3.4 g/dL Normal 1.5-4.3 [facility] Comment on above: Performed By: #### 5 [id number], [id number], [id number] ####[facility] (DEFAULT)[address] [place] [address] 21978 Glucose [Mass/Vol] 419.0 mg/dL High 74.0-118.0 [facility] Comment on above: Performed By: #### 5 [id number], [id number], [id number] ####[facility] (DEFAULT)[address] [place] [address] 84037 Osmolality 275 mOsm/L Invalid Interpretation Code [facility] Comment on above: Performed By: #### 5 [id number], [id number], [id number] ####[facility] (DEFAULT)[address] [place] [address] 49859 Potassium [Moles/Vol] 4.1 mmol/L Normal 3.6-5.1 [facility] Comment on above: Performed By: #### 5 [id number], [id number], [id number] ####[facility] (DEFAULT)[address] [place] [address] 97783 Protein [Mass/Vol] 7.2 g/dL Normal 6.5-8.1 [facility] Comment on above: Performed By: #### 5 [id number], 6578192, [id number] ####[facility] (DEFAULT)[address] [place] [address] 27625 Sodium [Moles/Vol] 127.0 mmol/L Low 136.0-144.0 [facility] Comment on above: Performed By: #### 5 [id number], [id number], [id number] ####[facility] (DEFAULT)[address] [place] [address] 75642 Urea nitrogen [Mass/Vol] 19 mg/dL Normal 8-26 [facility] Comment on above: Performed By: #### 5 [id number], [id number], [id number] ####[facility] (DEFAULT)[address] [place] [address] 62531 Urea nitrogen/Creatinine [Mass ratio] 20.6 mg/mg High 4.6-16.2 [facility] Comment on above: Performed By: #### 5 [id number], 4072071, [id number] ####[facility] (DEFAULT)[address] [place] [address] CO2 [Moles/Vol] mmol/L Low 21-32 [facility] Comment on above: Performed By: #### 5 [id number], [id number], [id number] ####[facility] (DEFAULT)[address] [place] [address] 03534 Breakpoint Chem Normal [facility] Comment on above: Order Comment: Patie nt is a hard stick. 3 Nurses have tried to do an IV. I am waiting to see if they get the IV started. 03/17/2023 22:08:47 EDT Performed By: #### 4 [id number] #### [facility] (DEFAULT) [address] [place] [address] eGFR Non AA >60 Invalid Interpretation Code [facility] Comment on above: Order Comment: Patie nt is a hard stick. 3 Nurses have tried to do an IV. I am waiting to see if they get the IV started. 03/17/2023 22:08:47 EDT Performed By: #### 4 [id number] #### [facility] (DEFAULT) [address] [place] [address] eGFR AA >60 Invalid Interpretation Code [facility] Comment on above: Order Comment: Patie nt is a hard stick. 3 Nurses have tried to do an IV. I am waiting to see if they get the IV started. 03/17/2023 22:08:47 EDT Performed By: #### 4 [id number] #### [facility] (DEFAULT) [address] [place] [address] 67790 Albumin [Mass/Vol] 4.3 g/dL Normal 3.5-5.0 [facility] Comment on above: Order Comment: Patie nt is a hard stick. 3 Nurses have tried to do an IV. I am waiting to see if they get the IV started. 03/17/2023 22:08:47 EDT Performed By: #### 4 [id number] #### [facility] (DEFAULT) [address] [place] [address] 97970 Albumin/Globulin [Mass ratio] 1.1 {ratio} Low 1.4-2.6 [facility] Comment on above: Order Comment: Patie nt is a hard stick. 3 Nurses have tried to do an IV. I am waiting to see if they get the IV started. 03/17/2023 22:08:47 EDT Performed By: #### 4 [id number] #### [facility] (DEFAULT) [address] [place] [address] 66423 Alk Phos 93 IU/L High 32-91 [facility] Comment on above: Order Comment: Patie nt is a hard stick. 3 Nurses have tried to do an IV. I am waiting to see if they get the IV started. 03/17/2023 22:08:47 EDT Performed By: #### 4 [id number] #### [facility] (DEFAULT) [address] [place] [address] 42720 ALT [Catalytic activity/Vol] 21.0 U/L Normal 14.0-54.0 [facility] Comment on above: Order Comment: Patie nt is a hard stick. 3 Nurses have tried to do an IV. I am waiting to see if they get the IV started. 03/17/2023 22:08:47 EDT Performed By: #### 4 [id number] #### [facility] (DEFAULT) [address] [place] [address] 92327 AST [Catalytic activity/Vol] 37 U/L Normal 15-41 [facility] Comment on above: Order Comment: Patie nt is a hard stick. 3 Nurses have tried to do an IV. I am waiting to see if they get the IV started. 03/17/2023 22:08:47 EDT Performed By: #### 4 [id number] #### [facility] (DEFAULT) [address] [place] [address] 49201 Bili Total 1.7 mg/dL High 0.3-1.2 [facility] Comment on above: Order Comment: Patie nt is a hard stick. 3 Nurses have tried to do an IV. I am waiting to see if they get the IV started. 03/17/2023 22:08:47 EDT Performed By: #### 4 [id number] #### [facility] (DEFAULT) [address] [place] [address] 08432 Calcium [Mass/Vol] 7.7 mg/dL Low 8.9-10.3 [facility] Comment on above: Order Comment: Patie nt is a hard stick. 3 Nurses have tried to do an IV. I am waiting to see if they get the IV started. 03/17/2023 22:08:47 EDT Performed By: #### 4 [id number] #### [facility] (DEFAULT) [address] [place] [address] 54214 Chloride [Moles/Vol] 99 mmol/L Low 101-111 [facility] Comment on above: Order Comment: Patie nt is a hard stick. 3 Nurses have tried to do an IV. I am waiting to see if they get the IV started. 03/17/2023 22:08:47 EDT Performed By: #### 4 [id number] #### [facility] (DEFAULT) [address] [place] [address] 60437 Creatinine [Mass/Vol] 1.01 mg/dL Normal 0.60-1.30 [facility] Comment on above: Order Comment: Patie nt is a hard stick. 3 Nurses have tried to do an IV. I am waiting to see if they get the IV started. 03/17/2023 22:08:47 EDT Performed By: #### 4 [id number] #### [facility] (DEFAULT) [address] [place] [address] 30273 Globulin (S) [Mass/Vol] 3.7 g/dL Normal 1.5-4.3 [facility] Comment on above: Order Comment: Patie nt is a hard stick. 3 Nurses have tried to do an IV. I am waiting to see if they get the IV started. 03/17/2023 22:08:47 EDT Performed By: #### 4 [id number] #### [facility] (DEFAULT) [address] [place] [address] 10499 Glucose [Mass/Vol] 455.0 mg/dL High 74.0-118.0 [facility] Comment on above: Order Comment: Patie nt is a hard stick. 3 Nurses have tried to do an IV. I am waiting to see if they get the IV started. 03/17/2023 22:08:47 EDT Performed By: #### 4 [id number] #### [facility] (DEFAULT) [address] [place] [address] 49125 Osmolality 272 mOsm/L Invalid Interpretation Code [facility] Comment on above: Order Comment: Patie nt is a hard stick. 3 Nurses have tried to do an IV. I am waiting to see if they get the IV started. 03/17/2023 22:08:47 EDT Performed By: #### 4 [id number] #### [facility] (DEFAULT) [address] [place] [address] 56412 Protein [Mass/Vol] 8.0 g/dL Normal 6.5-8.1 [facility] Comment on above: Order Comment: Patie nt is a hard stick. 3 Nurses have tried to do an IV. I am waiting to see if they get the IV started. 03/17/2023 22:08:47 EDT Performed By: #### 4 [id number] #### [facility] (DEFAULT) [address] [place] [address] 78749 Sodium [Moles/Vol] 125.0 mmol/L Low 136.0-144.0 [facility] Comment on above: Order Comment: Patie nt is a hard stick. 3 Nurses have tried to do an IV. I am waiting to see if they get the IV started. 03/17/2023 22:08:47 EDT Performed By: #### 4 [id number] #### [facility] (DEFAULT) [address] [place] [address] 93896 Urea nitrogen [Mass/Vol] 16 mg/dL Normal 8-26 [facility] Comment on above: Order Comment: Patie nt is a hard stick. 3 Nurses have tried to do an IV. I am waiting to see if they get the IV started. 03/17/2023 22:08:47 EDT Performed By: #### 4 [id number] #### [facility] (DEFAULT) [address] [place] [address] 78612 Urea nitrogen/Creatinine [Mass ratio] 15.8 mg/mg Normal 4.6-16.2 [facility] Comment on above: Order Comment: Patie nt is a hard stick. 3 Nurses have tried to do an IV. I am waiting to see if they get the IV started. 03/17/2023 22:08:47 EDT Performed By: #### 4 [id number] #### [facility] (DEFAULT) [address] [place] [address] 55553 Potassium [Moles/Vol] 4.6 mmol/L Normal 3.6-5.1 [facility] Comment on above: Order Comment: Patie nt is a hard stick. 3 Nurses have tried to do an IV. I am waiting to see if they get the IV started. 03/17/2023 22:08:47 EDT Result Comment: Delt a check reviewed with RN Performed By: #### 4 [id number] #### [facility] (DEFAULT) [address] [place] [address] 06721 CO2 [Moles/Vol] mmol/L Low 21-32 [facility] Comment on above: Order Comment: Patie nt is a hard stick. 3 Nurses have tried to do an IV. I am waiting to see if they get the IV started. 03/17/2023 22:08:47 EDT Result Comment: Resu lts Verified by Repeat Analysis Performed By: #### 4 [id number] #### [facility] (DEFAULT) [address] [place] [address] CHEST PULMONARY EMBOLISM W CONTRASTon 09-19-2023 [...] MD 03/18/23 Edited Result - FINAL Normal [facility] Calcium, Ionicon 03-18-2023 Calcium [Moles/Vol] 1.18 mmol/L Normal 1.13-1.33 [facility] Comment on above: Performed By: #### Jam RODAS IOCAL #### [facility] [address] [place], [place] [id number] Manager Learning: Norman Blake MD D-Dimer Teston 03-18-2023 D-Dimer Test 0.60 ug/mL FEU High 0.00-0.57 [facility] Comment on above: Result Comment: [...] Performed By: #### Jam RODAS IOCAL #### [facility] [address] [place], [place] [id number] Manager Learning: Norman Blake MD ED Clinical Summaryon 2022 ED Clinical Summary [facility] Emergency Department [address] [place] [address] ED Clinical Summary PERSON INFORMATION Name: TASHA, ALLEX N Age: 27 Years Sex: FEMALE : 1995 MRN: Acct#: Visit Reason: Chest pain; SOB, CHEST PAIN Arrival: 03/17/2023 20:58:55 Discharge: 03/18/2023 03:03:00 LOS: 000 06:05 Check In: 03/17/2023 20:58:55 Checkout:03/18/2023 03:03:00 Address: [address] [facility] [address] PCP: ARCADIO IGLESIAS PROVIDER INFORMATION Provider Role [...] 0 Refill(s) clif (more content not included)... [facility] ED Note - Otheron 03-18-2023 ED Note - Other paging Coke Inspector through [facility] for transfer [Electronically Signed on: 03/18/2023 00:54 EDT] Usha Angel [Verified on: 03/18/2023 00:54 EDT] Usha Angel Coke Inspector called back from [facility], Dr. Valdes retuned call, on phone with Dr. [phone] [Electronically Signed on: 03/18/2023 01:00 EDT] Usha Angel [facility] ED Patient Education Noteon 03-18-2023 ED Patient Education Note [employer] [facility] ED Patient Summaryon 023 ED Patient Summary [facility] - Emergency Department [address] [place] [address] PATIENT DISCHARGE INSTRUCTIONS Patient Information Name: DOUGLAS CORDOVA Age: 27 Years Date of : 1995 [facility]: [id number] Reason For Visit: Chest pain; SOB, CHEST PAIN Arrival Time: 03/17/2023 20:58:55 Primary Care Physician: ARCADIO IGLESIAS Attending Physician: Linn Johnson DO Comment: Visit Diagnosis: Diagnoses This Visit Anxiety (F41.9) Chest pain ([id number]) COVID-19 (U07.1) DKA (diabetic ketoacidosis) (E11.10) The Pharmacy at [facility] is open Friday through Friday [...] alcohol and/or drug addiction problems; contact the [facility] 20/01 Crisis Hotline -text 4hope to [phone]. [...] and treatment you received today in the [facility] Emergency Department were for an urgent problem and are not intended as complete care. It is important for you to follow up with a doctor, nurse practitioner, or physician?s railways assistant for ongoing care. If your symptoms [...] so we can reach you if necessary. [facility] Emergency Department has provided you with a complete list of medications post discharge. Please inform your coke drawer hand/provider of your visit and for further instruction [...] a day. Durable Medical Equipment for Prescription ([employer] DASH PODS (GEN 4) 5PK) change q [...] better. Usual (more content not included)... Normal [facility] Ethanol.on 03-18-2023 Ethanol Level <5.0 Normal 0.0-5.0 [facility] Comment on above: Order Comment: [...] 03/17/2023 22:18:48 EDT Performed By: #### 4 [id number] #### [facility] (DEFAULT) [address] [place] [address] Hemoglobin A1Con 03-18-2023 Glucose [Mass/Vol] 369 mg/dL Normal [facility] Comment on above: Result Comment: The ADA and AACC recommend providing the estimated average glucose result to permit better patient understanding of their HBA1c result. Performed By: #### H EPXA TROPI, CDP, BMP #### [facility] [address] [place] [address] [phone] Manager Learning: Norman Blake MD HbA1c (Bld) [Mass fraction] 14.5 % High 4.0-6.0 [facility] Comment on above: Performed By: #### H EPXA TROPI CDP, BMP #### [facility] [address] [place] [address] [phone] Manager Learning: Norman Blake MD Heparin Anti-Xaon 03-18-2023 Heparin Anti-Xa <0.10 Normal [facility] Comment on above: Performed By: #### Jam RODAS, IOCAL #### [facility] [address] [place] [address] Manager Learning: Norman Blake MD Heparin Anti-Xa <0.10 Normal [facility] Comment on above: Performed By: #### R EJEC, HEPXA #### [facility] [address] [place] [address] Manager Learning: Norman Blake MD Heparin Anti-Xa <0.10 Normal [facility] Comment on above: Performed By: #### R EJEC, HEPXA #### [facility] [address] [place] [address] Manager Learning: Norman Blake MD Ketone Serumon 03-18-2023 Ketone Serum Small Normal Negative [facility] Comment on above: Performed By: #### 6 [id number] ####[facility] (DEFAULT)[address] [place] [address] MRSA, DNA, Nasalon 3 Specimen Description .NASAL SWAB Normal [facility] Comment on above: Performed By: #### Jam RODAS IOCAL #### [facility] [address] [place] [address] Manager Learning: Norman Blake MD Magnesiumon 03-18-2023 Magnesium [Mass/Vol] 1.9 mg/dL Normal 1.6-2.6 [facility] Comment on above: Performed By: #### Jam RODAS, IOCAL #### [facility] [address] [place] [phone] Manager Learning: Norman Blake MD Magnesium [Mass/Vol] 2.2 mg/dL Normal 1.6-2.6 [facility] Comment on above: Performed By: #### R EJEC, HEPXA #### [facility] [address] [place] [address] Manager Learning: Norman Blake MD Magnesium [Mass/Vol] 2.2 mg/dL Normal 1.6-2.6 [facility] Comment on above: Performed By: #### R YURI, HEPXA #### [facility] [address] [place] [address] [phone] Manager Learning: Norman Blake MD Magnesium [Mass/Vol] 1.6 mg/dL Normal 1.6-2.6 [facility] Comment on above: Performed By: #### D CLARK IOCAL #### [facility] [address] [place] [address] [phone] Manager Learning: Norman Blake MD Myoglobinon 03-18-2023 Myoglobin [Mass/Vol] 288.6 ng/mL High 14.3-65.8 [facility] Comment on above: Performed By: #### 5 [id number], [id number], [id number] ####[facility] (DEFAULT)[address] [place] [address] PTon 03-18-2023 INR Coag (PPP) [Relative time] 1.1 {INR} Normal [facility] Comment on above: Result Comment: Therapeutic Range: Moderate Anticoagulant Intensity: INR = 2.0-3.0 High Anticoagulant Intensity: INR = 2.5-3.5 Performed By: #### Jose WELCH, HEPXA #### [facility] [address] [place] [address] [phone] Manager Learning: Norman Blake MD PT Coag (PPP) [Time] 14.1 s Normal 11.7-14.9 [facility] Comment on above: Performed By: #### R EJANNA, HEPXA #### [facility] [address] [place] [address] [phone] Manager Learning: Norman Blake MD Phosphorus, Inorg.on 023 Phosphorus, Inorg. 0.4 mg/dL Critically low 2.6-4.5 [facility] Comment on above: Performed By: #### D CLARK, IOCAL #### [facility] [address] [place] [address] Manager Learning: Norman Blake MD Phosphorus, Inorg. 0.4 mg/dL Critically low 2.6-4.5 [facility] Comment on above: Result Comment: TEST CONFIRMED Performed By: #### R EJEC, HEPXA #### [facility] [address] [place] [address] Manager Learning: Norman Blake MD Phosphorus, Inorg. 0.9 mg/dL Critically low 2.6-4.5 [facility] Comment on above: Performed By: #### D CLARK, IOCAL #### [facility] [address] [place] [address] Manager Learning: Norman Blake MD Phosphorus, Inorg. 1.2 mg/dL Low 2.6-4.5 [facility] Comment on above: Performed By: #### H EPXA, TROPI, CDP, BMP #### [facility] [address] [place] [address] Manager Learning: Norman Blake MD Test Serum 1 Preg Serum Internal Control [facility] Comment on above: Order Comment: Patie nt is a hard stick. 3 Nurses have tried to do an IV. I am waiting to see if they get the IV started. 03/17/2023 22:08:47 EDT Performed By: #### 7 [id number], [id number], [id number], [id number], [id number], [id number] ####[facility] (DEFAULT)[address] [place] [address] Test Serum Qual Negative [facility] Comment on above: Order Comment: Patie nt is a hard stick. 3 Nurses have tried to do an IV. I am waiting to see if they get the IV started. 03/17/2023 22:08:47 EDT Performed By: #### 7 [id number], [id number], [id number], [id number], [id number], [id number] ####[facility] (DEFAULT)[address] [place] [address] Salicylateon 03-18-2023 Salicylate Lvl <4.0 Normal 0.0-30.0 [facility] Comment on above: Performed By: #### 4 [id number] #### [facility] (DEFAULT) [address] [place] [address] Specimen Rejectionon 023 Reason for rejection Unable to perform testing: Specimen contaminated. Normal [facility] Comment on above: Performed By: #### R EJEC, HEPXA #### [facility] [address] [place] [address] [phone] Manager Learning: Norman Blake MD Source of sample .BLOOD Normal [facility] Comment on above: Performed By: #### R EJEC, HEPXA #### [facility] [address] [place] [address] [phone] Manager Learning: Norman Blake MD Test ordered TROPI MG AUDRA BMP Normal [facility] Comment on above: Performed By: #### R EJEC, HEPXA #### [address] [address] Manager Learning: Norman Blake MD TnI HSon 03-18-2023 Troponin I High Sensitivity 5176.9 pg/mL Critically abnormal <=15.0 [facility] Comment on above: Result Comment: Crit ical result TNIHS 5176.9 pg/mL called to and read back by Nora Bliss RN at 18-Mar-2023 01:30 by [email or web address]_[email or web address]. Performed By: #### 5 [id number], [id number], [id number] ####[facility] (DEFAULT)[address] [place] [address] Troponin I High Sensitivity 3869.7 pg/mL Critically abnormal <=15.0 [facility] Comment on above: Order Comment: [...] 23:51 by Isaiah. Performed By: #### 4 [id number] #### [facility] (DEFAULT) [address] [place] [address] Transfer Noteon 03-18-2023 Transfer Note Rm assignment [facility] 3008 bed 1 report # [phone] [Electronically Signed on: 03/18/2023 02:25 EDT] Usha Angel [Verified on: 03/18/2023 02:25 EDT] StanleyUsha [facility] Transfer Note Complete ED chart sent with patient. CD and med list sent w. patient to Hospital, [facility] [Electronically Signed on: 03/18/2023 01:47 EDT] Usha Angel [Verified on: 03/18/2023 01:47 EDT] Usha Angel [facility] Transfer Note [id number] [facility] [id number] [facility], Spoke to Dinae and she stated that they are unable to take patient do to her being in DKA. Will try other transport. [Electronically Signed on: 03/18/2023 01:11 EDT] Karena Angelah [Verified on: 03/18/2023 01:11 EDT] Stanley Usha [facility] and [facility] [Electronically Signed on: 03/18/2023 01:19 EDT] Stanley [facility] Transfer Note Contacted transfer line through [facility], [facility] [Electronically Signed on: 03/18/2023 00:21 EDT] Usha Angel [Verified on: 03/18/2023 00:21 EDT] Usha Angel Coke Inspector called back from [facility], on the phone with Dr. Johnson [phone] [Electronically Signed on: 03/18/2023 00:32 EDT] Stanley [facility] Triage Panel 12on 03-18-2023 Triage Internal Control [facility] Comment on above: Performed By: #### 6 775287, [id number], [id number], [id number] ####[facility] (DEFAULT)[address] [place] [address] 25471 U Amph Scr Negative Normal [facility] Comment on above: Performed By: #### 6 671704, [id number], [id number], [id number] ####[facility] (DEFAULT)[address] [place] [address] 13395 U Landy Scr Negative Normal [facility] Comment on above: Performed By: #### 6 139075, [id number], [id number], [id number] ####[facility] (DEFAULT)[address] [place] [address] 64848 U Benzodia Scr Negative Normal [facility] Comment on above: Performed By: #### 6 624622, [id number], [id number], [id number] ####[facility] (DEFAULT)[address] [place] [address] 26440 U Cannab Scrn Negative [facility] Comment on above: Performed By: #### 6 181518, [id number], [id number], [id number] ####[facility] (DEFAULT)[address] [place] [address] 95862 U Cocaine Scr Negative [facility] Comment on above: Performed By: #### 6 775751, [id number], [id number], [id number] ####[facility] (DEFAULT)[address] [place] [address] 54603 U Methadone Scr Negative Normal [facility] Comment on above: Performed By: #### 6 960649, [id number], [id number], [id number] ####[facility] (DEFAULT)[address] [place] [address] 87199 U Methamp Scrn Negative [facility] Comment on above: Performed By: #### 6 497257, [id number], [id number], [id number] ####[facility] (DEFAULT)[address] [place] [address] 26834 U Opiate Scr Negative Normal [facility] Comment on above: Performed By: #### 6 152644, [id number], [id number], [id number] ####[facility] (DEFAULT)[address] [place] [address] U Oxycod Scr Negative Normal [facility] Comment on above: Performed By: #### 6 815069, [id number], [id number], [id number] ####[facility] (DEFAULT)[address] [place] [address] U Phencyclidine Scr Negative Normal [facility] Comment on above: Performed By: #### 6 917114, [id number], [id number], [id number] ####[facility] (DEFAULT)[address] [place] [address] 96854 U Propoxyphene Scr Negative Normal [facility] Comment on above: Performed By: #### 6 923199, [id number], [id number], [id number] ####[facility] (DEFAULT)[address] [place] [address]855 U Tricyclic Antidepress Scr Negative Normal [facility] Comment on above: Result Comment: [...] PPX Propoxyphene (Norpropoxyphene): 300 ng/mL THC Cannabinoids (63-src-9-carboxy- -THC): 50 ng/mL TCA Tricyclic-Antidepressants (Desipramine): 300 ng/mL Performed By: #### 6 700946, [id number], [id number], [id number] ####[facility] (DEFAULT)[address] [place] [address] Urine Source Voided Normal [facility] Comment on above: Performed By: #### 6 256046, [id number], [id number], [id number] ####[facility] (DEFAULT)[address] [place] [address] Troponinon 03-18-2023 Troponin, High Sens 851 ng/L Critically high 0-14 [facility] Comment on above: Result Comment: High Sensitivity Troponin values cannot be compared with other Troponin methodologies. Previous Alert Value Reported Performed By: #### D CLARK, IOCAL #### [facility] [address] [place] [address] Manager Learning: Norman Blake MD Troponin, High Sens 860 ng/L Critically high 0-14 [facility] Comment on above: Result Comment: High Sensitivity Troponin values cannot be compared with other Troponin methodologies. Previous Alert Value Reported Performed By: #### R EJEC, HEPXA #### [facility] [address] [place] [id number] Manager Learning: Norman Blake MD Troponin, High Sens 709 ng/L Critically high 0-14 [facility] Comment on above: Result Comment: High Sensitivity Troponin values cannot be compared with other Troponin methodologies. Previous Alert Value Reported Performed By: #### H EPXA, TROPI, CDP, BMP #### [facility] [place] [address] Manager Learning: Norman Blake MD Troponin, High Sens 700 ng/L Critically high 0-14 [facility] Comment on above: Result Comment: High Sensitivity Troponin values cannot be compared with other Troponin methodologies. Previous Alert Value Reported Performed By: #### D CLARK, IOCAL #### [facility] [address] [place] [address] Manager Learning: Norman Blake MD Troponin, High Sens 638 ng/L Critically high 0-14 [facility] Comment on above: Result Comment: High Sensitivity Troponin values cannot be compared with other Troponin methodologies. Performed By: #### H EPXA, TROPI, CDP, BMP #### [facility] [address] [place] [address] Manager Learning: Norman Blake MD UA Lomgw7za 03-18-2023 UA Amorph. 1+ [facility] Comment on above: Order Comment: Urina lysis Microscopic order added on by [employer] Rules system. Performed By: #### 6 036237, [id number], [id number], [id number] ####[facility] (DEFAULT)[address] [place] [address] UA Bacteria 4+ [facility] Comment on above: Order Comment: Urina lysis Microscopic order added on by [employer] Rules system. Performed By: #### 6 824689, [id number], [id number], [id number] ####[facility] (DEFAULT)[address] [place] [address] UA RBC 5-10 [facility] Comment on above: Order Comment: Urina lysis Microscopic order added on by [employer] system. Performed By: #### 6 397787, [id number], [id number], [id number] ####[facility] (DEFAULT)[address] [place] [address] UA Squam Epi Many [facility] Comment on above: Order Comment: Urina lysis Microscopic order added on by [employer] system. Performed By: #### 6 201123, [id number], [id number], [id number] ####[facility] (DEFAULT)[address] [place] [address] UA WBC 0-2 [facility] Comment on above: Order Comment: Urina lysis Microscopic order added on by [employer] system. Performed By: #### 6 783109, [id number], [id number], [id number] ####[facility] (DEFAULT)[address] [place] [address] UA w Culture if Ind Standard on 03-18-2023 Breakpoint UA [facility] Comment on above: Performed By: #### 6 750320, [id number], [id number], [id number] ####[facility] (DEFAULT)[address] [place] [address] Color (U) Yellow [facility] Comment on above: Performed By: #### 6 909624, [id number], [id number], [id number] ####[facility] (DEFAULT)[address] [place] [address] Culture? Indicated Invalid Interpretation Code [facility] Comment on above: Result Comment: Resu lt created by rule GL_MAGR_ADD_UA_CULT Performed By: #### 6 677513, [id number], [id number], [id number] ####[facility] (DEFAULT)[address] [place] [address] Glucose (U) [Mass/Vol] 500 mg/dL Normal [facility] Comment on above: Performed By: #### 6 458423, [id number], [id number], [id number] ####[facility] (DEFAULT)[address] [place] [address] Ketones Ql (U) >=80 [facility] Comment on above: Performed By: #### 6 595601, [id number], [id number], [id number] ####[facility] (DEFAULT)[address] [place] [address] Micro? Indicated Invalid Interpretation Code [facility] Comment on above: Result Comment: Resu lt created by rule GL_MAGR_ADD_UA_MICRO Result created by rule GL_MAGR_ADD_UA_MICRO Performed By: #### 6 706960, [id number], [id number], [id number] ####[facility] (DEFAULT)[address] [place] [address] UA Bilirubin Negative [facility] Comment on above: Performed By: #### 6 876784, [id number], 77109245, [id number] ####[facility] (DEFAULT)[address] [place] [address] UA Blood LARGE Abnormal NEGATIVE [facility] Comment on above: Performed By: #### 6 714937, [id number], [id number], [id number] ####[facility] (DEFAULT)[address] [place] [address] 19194 UA Clarity SL CLOUDY Abnormal CLEAR [facility] Comment on above: Performed By: #### 6 167395, [id number], 46846982, [id number] ####[facility] (DEFAULT)[address] [place] [address] 74727 UA Leuk Est Negative Normal NEGATIVE [facility] Comment on above: Performed By: #### 6 949930, [id number], [id number], [id number] ####[facility] (DEFAULT)[address] [place] [address] 20775 UA Nitrite Negative Normal NEGATIVE [facility] Comment on above: Performed By: #### 6 152077, [id number], [id number], [id number] ####[facility] (DEFAULT)[address] [place] [address] 35434 UA pH 6.0 Normal 5-8 [facility] Comment on above: Performed By: #### 6 431699, [id number], [id number], [id number] ####[facility] (DEFAULT)[address] [place] [address] UA Protein 30 Abnormal NEGATIVE [facility] Comment on above: Performed By: #### 6 720920, [id number], 23065691, [id number] ####[facility] (DEFAULT)[address] [place] [address] 89643 UA Spec Grav >=1.030 Normal 1.001-1.035 [facility] Comment on above: Performed By: #### 6 862279, [id number], 30172962, [id number] ####[facility] (DEFAULT)[address] [place] [address]45 UA Urobilinogen 0.2 mg/dL Normal 0.2-1.0 [facility] Comment on above: Performed By: #### 6 591607, [id number], [id number], [id number] ####[facility] (DEFAULT)[address] [place] [address] Urine Source Voided Normal [facility] Comment on above: Performed By: #### 6 170641, [id number], [id number], [id number] ####[facility] (DEFAULT)[address] [place] [address] UA w/Reflex Cultureon 2022 Bilirubin, SemiQt,Ur Negative Normal NEG [facility] Comment on above: Performed By: #### U AX #### [address] [address] Manager Learning: Norman Blake MD Blood, Urine LARGE Abnormal NEG [facility] Comment on above: Performed By: #### U AX #### [address] [address] Manager Learning: Norman Blake MD Clarity (U) Cloudy Abnormal CLEAR [facility] Comment on above: Performed By: #### U AX #### [address] [address] Manager Learning: Norman Blake MD Color (U) Yellow Normal YEL [facility] Comment on above: Performed By: #### U AX #### [address] [address] Manager Learning: Norman Blake MD Glucose Ql (U) 3+ mg/dL Abnormal NEG [facility] Comment on above: Performed By: #### U AX #### [address] [address] Manager Learning: Norman Blake MD Ketones Ql (U) LARGE Abnormal NEG [facility] Comment on above: Performed By: #### U AX #### [address] [address] Manager Learning: Norman Blake MD Leukocyte esterase Test strip Ql (U) Negative Normal NEG [facility] Comment on above: Performed By: #### U AX #### [address] [address] Manager Learning: Norman Blake MD Nitrite,Ur Negative Normal NEG [facility] Comment on above: Performed By: #### U AX #### [address] [address] Manager Learning: Norman Blake MD PH,Ur 5.5 Normal 5.0-8.0 [facility] Comment on above: Performed By: #### U AX #### [address] [address] Manager Learning: Norman Blake MD Protein Ql (U) 2+ mg/dL Abnormal NEG [facility] Comment on above: Performed By: #### U AX #### [address] [address] Manager Learning: Norman Blake MD Spec. [place],Ur 1.028 Normal 1.005-1.030 [facility] Comment on above: Performed By: #### U AX #### [address] [address] Manager Learning: Norman Blake MD Urobilinogen,Ur Normal Normal 0.0-1.0 [facility] Comment on above: Performed By: #### U AX #### [address] [address] Manager Learning: Norman Blake MD Venous Blood Gaseson 023 Body Temp. 37.0 Normal [facility] Comment on above: Performed By: #### R EJEC, HEPXA #### [address] [address] Manager Learning: Norman Blake MD Carboxy Hgb 0.7 % Normal 0-5 [facility] Comment on above: Result Comment: Reference Range: Non-Smokers 0-2% Average Smoker 2-4% Heavy Smoker <10% Performed By: #### R EJEC, HEPXA #### [address] [address] Manager Learning: Norman Blake MD FIO2 INFORMATION NOT PROVIDED Normal [facility] Comment on above: Performed By: #### R EJEC, HEPXA #### [address] [address] Manager Learning: Norman Blake MD HCO3 (Bld) [Moles/Vol] 17.2 mmol/L Low 24-[address] [facility] Comment on above: Performed By: #### R EJEC, HEPXA #### [address] [address] Manager Learning: Norman Blake MD Negative Base Excess 7.0 mmol/L High 0.0-2.0 [facility] Comment on above: Performed By: #### R EJEC, HEPXA #### [address] [address] Manager Learning: Norman Blake MD Oxygen saturation in Blood 90.7 % High 60.0-85.0 [facility] Comment on above: Performed By: #### R EJEC, HEPXA #### [address] [address] Manager Learning: Norman Blake MD pCO2 32.2 mm Hg Low 39-55 [facility] Comment on above: Performed By: #### R EJEC, HEPXA #### [address] [address] Manager Learning: Norman Blake MD pH (Bld) 7.348 [pH] Normal 7.320-7.420 [facility] Comment on above: Performed By: #### R EJEC, HEPXA #### [facility] [address] [place] [address] Manager Learning: Norman Blake MD pO2 55.1 mm Hg High 30-50 [facility] Comment on above: Performed By: #### R EJEC, HEPXA #### [facility] [address] [place] [address] Manager Learning: Norman Blake MD XR CHEST PORTABLEon 03-18-20 [...] Prieto Engel MD 03/18/23 Final result Normal [facility] XR Chest 1 View Frontalon XR Chest [...] Wang DO 03/18/23 8:44 am Technologist: [facility] Consent Formson 03-17-2023 Consent Forms [id number] #[id number] ED Note - Physicianon 2022 ED Note - Physician Patient: DOUGLAS CORDOVA [facility]: [id number] Age: 27 years Sex: FEMALE : 1995 [...] Social History Medical history: Resolved Diabetes mellitus ([id number]): Resolved. . Surgical history: No active procedure [...] Lab Collect T (more content not included)... [facility] Tele[facility]pson 3 Telemetry Strips [id number] #1.[facility] .Auto Diff 1on 03-16-2023 Auto George % 3 % Normal 12 [facility] Comment on above: Performed By: #### 4 [id number] #### [facility] (DEFAULT) [address] [place] [address] Baso Abs# 0.1 x10 Normal 0.0-0.2 [facility] Comment on above: Performed By: #### 4 [id number] #### [facility] (DEFAULT) [address] [place] [address] Basophils/100 WBC (Bld) 1.3 % Normal 0.2-2.0 [facility] Comment on above: Performed By: #### 4 [id number] #### [facility] (DEFAULT) [address] [place] [address] Eos Abs# 0.0 x10 Normal 0.0-0.4 [facility] Comment on above: Performed By: #### 4 [id number] #### [facility] (DEFAULT) [address] [place] [address] Eosinophils/100 WBC (Bld) 0.0 % Low 0.9-4.0 [facility] Comment on above: Performed By: #### 4 [id number] #### [facility] (DEFAULT) [address] [place] [address] Lymph Abs# 0.9 x10 Low 1.3-2.9 [facility] Comment on above: Performed By: #### 4 [id number] #### [facility] (DEFAULT) [address] [place] [address] Lymphocytes/100 WBC (Bld) 11 % Low 14-48 [facility] Comment on above: Performed By: #### 4 [id number] #### [facility] (DEFAULT) [address] [place] [address] George Abs# 0.2 x10 Normal 0.0-0.8 [facility] Comment on above: Performed By: #### 4 [id number] #### [facility] (DEFAULT) [address] [place] [address] Neut Abs# 6.6 x10 Normal 1.5-9.2 [facility] Comment on above: Performed By: #### 4 [id number] #### [facility] (DEFAULT) [address] [place] [address] Neutrophils/100 WBC (Bld) 85 % Normal 44-88 [facility] Comment on above: Performed By: #### 4 [id number] #### [facility] (DEFAULT) [address] [place] [address] .QC SARS-CoV-2 (COVID-19)/Fl u/RSV (GeneXpert)on 03-16-2023 Internal Control Pass Normal [facility] Comment on above: Order Comment: Order ed by Discern. [[id number]] Performed By: #### 7 [id number] #### [facility] (DEFAULT) [address] [place] [address] 51433 Acetone Qlon 03-16-2023 Acetone SMALL Normal [facility] Comment on above: Performed By: #### 6 [id number] ####[facility] (DEFAULT)[address] [place] [address] 46979 Arterial Blood Gas Standardo n 03-16-2023 Base Excess Art -21.7 mmol/L Low -3.3-2.3 [facility] Comment on above: Performed By: #### 4 [id number] #### [facility] (DEFAULT) [address] [place] [address] 14696 Breakpoint Hemo Normal [facility] Comment on above: Performed By: #### 4 [id number] #### [facility] (DEFAULT) [address] [place] [address] 89841 Device Room Air Normal [facility] Comment on above: Performed By: #### 4 [id number] #### [facility] (DEFAULT) [address] [place] [address] 52305 Fio2 Art 21.0 % Normal 21.0-100.0 [facility] Comment on above: Performed By: #### 4 [id number] #### [facility] (DEFAULT) [address] [place] [address] 10317 HCO3 (Bld) [Moles/Vol] 6.0 mmol/L Low 22.0-27.0 [facility] Comment on above: Performed By: #### 4 [id number] #### [facility] (DEFAULT) [address] [place] [address] 76355 Oxygen saturation in Blood 97.9 % Normal 95.0-100.0 [facility] Comment on above: Performed By: #### 4 [id number] #### [facility] (DEFAULT) [address] [place] [address] 71613 pCO2 Art 19 mmHg Critically abnormal 34-44 [facility] Comment on above: Result Comment: Resu lts handed to Dr Gonzalez by on 03/16/23 @ 1045 Performed By: #### 4 [id number] #### [facility] (DEFAULT) [address] [place] [address] 97287 pH Art 7.11 Critically abnormal 7.37-7.44 [facility] Comment on above: Result Comment: Resu lts handed to Dr Gonzalez by RUTH on 03/16/23 @ 1045, RBD Performed By: #### 4 [id number] #### [facility] (DEFAULT) [address] [place] [address] 72617 pO2 Art 208 mmHg High 75-100 [facility] Comment on above: Performed By: #### 4 [id number] #### [facility] (DEFAULT) [address] [place] [address] Puncture Site Right Brachial Normal [facility] Comment on above: Performed By: #### 4 [id number] #### [facility] (DEFAULT) [address] [place] [address] Rate: 18 Invalid Interpretation Code [facility] Comment on above: Performed By: #### 4 [id number] #### [facility] (DEFAULT) [address] [place] [address] 31104 BMP Standardon 03-16-2023 eGFR Non AA >60 Invalid Interpretation Code [facility] Comment on above: Order Comment: While on Insulin Drip Performed By: #### 4 [id number] #### [facility] (DEFAULT) [address] [place] [address] 67239 eGFR AA >60 Invalid Interpretation Code [facility] Comment on above: Order Comment: While on Insulin Drip Performed By: #### 4 [id number] #### [facility] (DEFAULT) [address] [place] [address] 70979 Anion gap [Moles/Vol] 14.8 mmol/L Normal 5.0-19.0 [facility] Comment on above: Order Comment: While on Insulin Drip Performed By: #### 4 [id number] #### [facility] (DEFAULT) [address] [place] [address] 24006 Calcium [Mass/Vol] 7.7 mg/dL Low 8.9-10.3 [facility] Comment on above: Order Comment: While on Insulin Drip Performed By: #### 4 [id number] #### [facility] (DEFAULT) [address] [place] [address] 92738 Chloride [Moles/Vol] 108 mmol/L Normal 101-111 [facility] Comment on above: Order Comment: While on Insulin Drip Performed By: #### 4 [id number] #### [facility] (DEFAULT) [address] [place] [address] 79691 CO2 [Moles/Vol] 14 mmol/L Low 21-32 [facility] Comment on above: Order Comment: While on Insulin Drip Performed By: #### 4 [id number] #### [facility] (DEFAULT) [address] [place] [address] 73189 Creatinine [Mass/Vol] 0.69 mg/dL Normal 0.60-1.30 [facility] Comment on above: Order Comment: While on Insulin Drip Performed By: #### 4 [id number] #### [facility] (DEFAULT) [address] [place] [address] 11379 Glucose [Mass/Vol] 295.0 mg/dL High 74.0-118.0 [facility] Comment on above: Order Comment: While on Insulin Drip Performed By: #### 4 [id number] #### [facility] (DEFAULT) [address] [place] [address] 65795 Osmolality 278 mOsm/L Invalid Interpretation Code [facility] Comment on above: Order Comment: While on Insulin Drip Performed By: #### 4 [id number] #### [facility] (DEFAULT) [address] [place] [address] 10207 Potassium [Moles/Vol] 3.8 mmol/L Normal 3.6-5.1 [facility] Comment on above: Order Comment: While on Insulin Drip Result Comment: Pota ssium Therapy Performed By: #### 4 [id number] #### [facility] (DEFAULT) [address] [place] [address] 01311 Sodium [Moles/Vol] 133.0 mmol/L Low 136.0-144.0 [facility] Comment on above: Order Comment: While on Insulin Drip Performed By: #### 4 [id number] #### [facility] (DEFAULT) [address] [place] [address] 18515 Urea nitrogen [Mass/Vol] 16 mg/dL Normal 8-26 [facility] Comment on above: Order Comment: While on Insulin Drip Performed By: #### 4 [id number] #### [facility] (DEFAULT) [address] [place] [address] Urea nitrogen/Creatinine [Mass ratio] 23.1 mg/mg High 4.6-16.2 [facility] Comment on above: Order Comment: While on Insulin Drip Performed By: #### 4 [id number] #### [facility] (DEFAULT) [address] [place] [address] CBC w/ Auto Diffon 3 Erythrocyte distribution width (RBC) [Ratio] 15.4 % High 11.5-15.0 [facility] Comment on above: Performed By: #### 4 [id number] #### [facility] (DEFAULT) [address] [place] [address] Hematocrit (Bld) [Volume fraction] 41.6 % High 33.7-40.4 [facility] Comment on above: Performed By: #### 4 [id number] #### [facility] (DEFAULT) [address] [place] [address] Hemoglobin (Bld) [Mass/Vol] 13.1 g/dL Normal 11.3-15.9 [facility] Comment on above: Performed By: #### 4 [id number] #### [facility] (DEFAULT) [address] [place] [address] Man Diff? Auto Invalid Interpretation Code [facility] Comment on above: Performed By: #### 4 [id number] #### [facility] (DEFAULT) [address] [place] [address] 63329 MCH (RBC) [Entitic mass] 25 pg Normal 24-34 [facility] Comment on above: Performed By: #### 4 [id number] #### [facility] (DEFAULT) [address] [place] [address] 99047 MCHC (RBC) [Mass/Vol] 32 g/dL Normal 26-37 [facility] Comment on above: Performed By: #### 4 [id number] #### [facility] (DEFAULT) [address] [place] [address] MCV (RBC) [Entitic vol] 81 fL Normal 81-100 [facility] Comment on above: Performed By: #### 4 [id number] #### [facility] (DEFAULT) [address] [place] [address] Platelet 298 x10 Normal 138-427 [facility] Comment on above: Performed By: #### 4 [id number] #### [facility] (DEFAULT) [address] [place] [address] Platelet mean volume (Bld) [Entitic vol] 8.6 fL Normal 6.3-10.2 [facility] Comment on above: Performed By: #### 4 [id number] #### [facility] (DEFAULT) [address] [place] [address] RBC 5.14 x10 Normal 3.70-5.30 [facility] Comment on above: Performed By: #### 4 [id number] #### [facility] (DEFAULT) [address] [place] [address] WBC 7.8 x10 Normal 3.5-10.5 [facility] Comment on above: Performed By: #### 4 [id number] #### [facility] (DEFAULT) [address] [place] [address] CMP Standardon 03-16-2023 Breakpoint Chem Normal [facility] Comment on above: Performed By: #### 4 [id number] #### [facility] (DEFAULT) [address] [place] [address] eGFR Non AA >60 Invalid Interpretation Code [facility] Comment on above: Performed By: #### 4 [id number] #### [facility] (DEFAULT) [address] [place] [address] eGFR AA >60 Invalid Interpretation Code [facility] Comment on above: Performed By: #### 4 [id number] #### [facility] (DEFAULT) [address] [place] [address] Albumin [Mass/Vol] 3.9 g/dL Normal 3.5-5.0 [facility] Comment on above: Performed By: #### 4 [id number] #### [facility] (DEFAULT) [address] [place] [address] 79824 Albumin/Globulin [Mass ratio] 1.1 {ratio} Low 1.4-2.6 [facility] Comment on above: Performed By: #### 4 [id number] #### [facility] (DEFAULT) [address] [place] [address] 08221 Alk Phos 76 IU/L Normal 32-91 [facility] Comment on above: Performed By: #### 4 [id number] #### [facility] (DEFAULT) [address] [place] [address] 67585 ALT [Catalytic activity/Vol] 17.0 U/L Normal 14.0-54.0 [facility] Comment on above: Performed By: #### 4 [id number] #### [facility] (DEFAULT) [address] [place] [address] 97144 Anion gap [Moles/Vol] 26.3 mmol/L High 5.0-19.0 [facility] Comment on above: Performed By: #### 4 [id number] #### [facility] (DEFAULT) [address] [place] [address] 01304 AST [Catalytic activity/Vol] 19 U/L Normal 15-41 [facility] Comment on above: Performed By: #### 4 [id number] #### [facility] (DEFAULT) [address] [place] [address] 98839 Bili Total 1.6 mg/dL High 0.3-1.2 [facility] Comment on above: Performed By: #### 4 [id number] #### [facility] (DEFAULT) [address] [place] [address] 86220 Calcium [Mass/Vol] 8.0 mg/dL Low 8.9-10.3 [facility] Comment on above: Performed By: #### 4 [id number] #### [facility] (DEFAULT) [address] [place] [address] 83146 Chloride [Moles/Vol] 97 mmol/L Low 101-111 [facility] Comment on above: Performed By: #### 4 [id number] #### [facility] (DEFAULT) [address] [place] [address] 99667 CO2 [Moles/Vol] 8 mmol/L Low 21-32 [facility] Comment on above: Performed By: #### 4 [id number] #### [facility] (DEFAULT) [address] [place] [address] 19805 Creatinine [Mass/Vol] 0.99 mg/dL Normal 0.60-1.30 [facility] Comment on above: Performed By: #### 4 [id number] #### [facility] (DEFAULT) [address] [place] [address] 02033 Globulin (S) [Mass/Vol] 3.4 g/dL Normal 1.5-4.3 [facility] Comment on above: Performed By: #### 4 [id number] #### [facility] (DEFAULT) [address] [place] [address] 37770 Glucose [Mass/Vol] 645.0 mg/dL Critically abnormal 74.0-118.0 [facility] Comment on above: Result Comment: Crit ical result GLU 645 mg/dL called to and read back by Sanjuana BENSON RN at 16-Mar-2023 11:05 by Anahy. Performed By: #### 4 [id number] #### [facility] (DEFAULT) [address] [place] [address] 62573 Osmolality 285 mOsm/L Invalid Interpretation Code [facility] Comment on above: Performed By: #### 4 [id number] #### [facility] (DEFAULT) [address] [place] [address] 27694 Potassium [Moles/Vol] 5.3 mmol/L High 3.6-5.1 [facility] Comment on above: Performed By: #### 4 [id number] #### [facility] (DEFAULT) [address] [place] [address] 68194 Protein [Mass/Vol] 7.3 g/dL Normal 6.5-8.1 [facility] Comment on above: Performed By: #### 4 [id number] #### [facility] (DEFAULT) [address] [place] [address] 62936 Sodium [Moles/Vol] 126.0 mmol/L Low 136.0-144.0 [facility] Comment on above: Performed By: #### 4 [id number] #### [facility] (DEFAULT) [address] [place] [address] 91768 Urea nitrogen [Mass/Vol] 16 mg/dL Normal 8-26 [facility] Comment on above: Performed By: #### 4 [id number] #### [facility] (DEFAULT) [address] [place] [address] 22670 Urea nitrogen/Creatinine [Mass ratio] 16.1 mg/mg Normal 4.6-16.2 [facility] Comment on above: Performed By: #### 4 [id number] #### [facility] (DEFAULT) [address] [place] [address] 99159 COVID/Flu/RSV (GeneXpert)on 03-16-2023 Flu A (GXpert COVFLURSV) Negative Normal Negative [facility] Comment on above: Performed By: #### 7 [id number], [id number] #### [facility] (DEFAULT) [address] [place] [address] 56698 Flu B (GXpert COVFLURSV) Negative Normal Negative [facility] Comment on above: Performed By: #### 7 [id number], [id number] #### [facility] (DEFAULT) [address] [place] [address] 54031 RSV (GXpert COVFLURSV) Negative Normal Negative [facility] Comment on above: Performed By: #### 7 [id number], [id number] #### [facility] (DEFAULT) [address] [place] [address] 40343 SARS-CoV-2 (COVID-19) RNA CARMEN+probe Ql (Unsp spec) Positive Critically abnormal Negative [facility] Comment on above: Result Comment: Resu lts Called To September By TB And Read Back For Confirmation On 03/16/2023 11:14:35 EDT. Performed by PCR methodology. Performed By: #### 7 [id number], [id number] #### [facility] (DEFAULT) [address] [place] [address] 85146 ED Clinical Summaryon 2022 ED Clinical Summary [facility] Emergency Department [address] [place] [address] ED Clinical Summary PERSON INFORMATION Name: DOUGLAS CORDOVA Age: 27 Years Sex: FEMALE : 1995 MRN: Acct#: Visit Reason: Hyperglycemia; DKA, COVID + Arrival: 03/16/2023 09:20:00 Discharge: LOS: 000 03:32 Check In: 03/16/2023 09:20:00 Checkout:03/16/2023 12:52:50 Address: [address] [facility] [address] PCP: ARCADIO IGLESIAS PROVIDER INFORMATION Provider Role [...] ron verbalizes understanding of instructions given Comment: [facility] ED Note-Nursingon 03-16-2023 ED Note-Nursing Patient presents with complaints of increased blood sugar. Patient with a history of Type 1 diabetes. Patient in insulin, however states she has not had her insulin in 3 days because she has not been able to get her prescription. Patient also complains of nausea and vomiting. Patient with an obvious acetone smell about her. [facility] ED Patient Education Noteon 03-16-2023 ED Patient Education Note Education Materials [facility] ED Patient Summaryon 023 ED Patient Summary [facility] - Emergency Department [address] [id number] PATIENT DISCHARGE INSTRUCTIONS Patient Information Name: DOUGLAS CORDOVA Age: 27 Years Date of : 1995 Reason For Visit: Hyperglycemia; DKA, COVID + Arrival Time: 03/16/2023 09:20:00 Primary Care Physician: ARCADIO IGLESIAS Attending Physician: Macy Armenta MD Comment: Visit Diagnosis: Diagnoses This Visit COVID-19 (U07.1) Diabetic ketoacidosis (E11.10) Hyperglycemia (256494857) The Pharmacy at [facility] is open Friday through Friday [...] alcohol and/or drug addiction problems; contact the [facility] 20/01 Crisis Hotline -Text 1VXUB xe [phone]. If you received any narcotics, sedation, or [...] and treatment you received today in the [facility] Emergency Department were for an urgent problem and are not intended as complete care. It is important for you to follow up with a doctor, nurse practitioner, or physician?s railways assistant for ongoing care. If your symptoms [...] so we can reach you if necessary. [facility] Emergency Department has provided you with a complete list of medications post discharge. Please inform your coke drawer hand/provider of your visit and for further instruction on these medications. Any specific questions regarding your chronic medications and dosages should be discussed with your primary care physician(s) and/or pharmacist. Medications to Continue That Have Not Changed Other Medications amphetamine-dextroam phetamine (amphetamine-dextroa mphetamine 30 mg oral capsule, extended release) carisoprodol (carisoprodol 350 mg oral tablet) Durable Medical Equipment for Prescription ([employer] PODS (GEN 4) 5PK) See instructions. gabapentin [...] Cough ? (more content not included)... Normal [facility] Magnesiumon 03-16-2023 Magnesium [Mass/Vol] 1.82 mg/dL Normal 1.80-2.50 [facility] Comment on above: Performed By: #### 4 [id number] #### [facility] (DEFAULT) [address] [place] [address] 05272 POCT Glucose Levelon 023 Glucose [Mass/Vol] 210 mg/dL High [address] [place] [address] Comment on above: Performed By: #### 4 [id number] #### [facility] (DEFAULT) [address] [place] [address] 88320 Glucose [Mass/Vol] 236 mg/dL High [address] [place] [address] Comment on above: Performed By: #### 7 [id number], [id number] #### [facility] (DEFAULT) [address] [place] [address] 59672 Glucose [Mass/Vol] 297 mg/dL High [address] Comment on above: Performed By: #### 4 [id number] #### [facility] (DEFAULT) [address] [place] [address] 67548 Glucose [Mass/Vol] 273 mg/dL High [address] [place] [address] Comment on above: Performed By: #### 4 [id number] #### [facility] (DEFAULT) [address] [place] [address] 97068 Glucose [Mass/Vol] 297 mg/dL High [address] [place] [address] Comment on above: Performed By: #### 4 [id number] #### [facility] (DEFAULT) [address] [place] [address] 92892 Glucose [Mass/Vol] 563 mg/dL Critically abnormal [address] [place] [address] Comment on above: Performed By: #### 4 [id number] #### [facility] (DEFAULT) [address] [place] [address] 52557 Test Serum Preg Serum Internal Control [place] [facility] Comment on above: Performed By: #### 4 [id number] #### [facility] (DEFAULT) [address] [place] [address] 51378 Test Serum Qual Negative [facility] Comment on above: Performed By: #### 4 [id number] #### [facility] (DEFAULT) [address] [place] [address] 85438 Progress Note - Nurseon 02-28 Progress Note - Nurse This over the horizon targeting supervisor called to urgent care waiting room area by clerical staff-advised that pt was discharged from hospital and needed a ride home. Upon further investigation, pt was found to have signed out AMA from , confirmed with 2S leak detector-and advised staff that she would be walking home. This over the horizon targeting supervisor follows up with patient. Pt sitting in urgent care waiting area with emesis bag in hand, barefoot, tearful. Pt advises she did check herself out of care against medical advice. This over the horizon targeting supervisor asks if she feels safe to go home at this time and if she has access to her insulin-pt advises she does. This over the horizon targeting supervisor asks if she could use any [...] [Verified on: 03/16/2023 17:51 EDT] [facility] RN[facility] - Nurse Patient left with all of her belongings and walked out of room to elevator without any socks. [Electronically Signed on: 03/16/2023 18:10 EDT] Aster Bernal RN [Verified on: 03/16/2023 18:10 EDT] Aster Bernal RN [facility] Progress Note - Nurse Upon doing assessment/ admission history patient requested something to drink. I informed her and reminded her that every time she drinks she has a large emesis. She didn't like that I refused her fluids and she said she wanted to leave. I had her sign an AMA paper. Then I notified Dr. Armenta and Suzi the over the horizon targeting supervisor. [Electronically Signed on: 03/16/2023 17:46 EDT] Aster Bernal RN [Verified on: 03/16/2023 17:46 EDT] Cook, Aster K RN [facility] UA [id number] 03-16-2023 UA Amorph. 1+ [facility] Comment on above: Order Comment: Urina lysis Microscopic order added on by [employer] Expert Rules system. Performed By: #### 1 [id number], [id number] ####[facility] (DEFAULT)[address] [place] [address] UA Bacteria Rare [facility] Comment on above: Order Comment: Urina lysis Microscopic order added on by [employer] Expert Rules system. Performed By: #### 1 [id number], [id number] ####[facility] (DEFAULT)[address] [place] [id number] UA RBC 0-2 [facility] Comment on above: Order Comment: Urina lysis Microscopic order added on by [employer] Expert Rules system. Performed By: #### 1 [id number], [id number] ####[facility] (DEFAULT)[address] [place] [address] UA Squam Epi Few [facility] Comment on above: Order Comment: Urina lysis Microscopic order added on by [employer] Rules system. Performed By: #### 1 [id number], [id number] ####[facility] (DEFAULT)[address] [place] [address] UA WBC None Seen [facility] Comment on above: Order Comment: Urina lysis Microscopic order added on by [employer] Rules system. Performed By: #### 1 [id number], [id number] ####[facility] (DEFAULT)[address] [place] [address] UA w Culture if Ind Standard on 03-16-2023 Breakpoint UA [facility] Comment on above: Performed By: #### 1 [id number], [id number] ####[facility] (DEFAULT)[address] [place] [address] Color (U) Yellow [facility] Comment on above: Performed By: #### 1 [id number], [id number] ####[facility] (DEFAULT)[address] [place] [address] Culture? No [facility] Comment on above: Result Comment: Resu lt created by rule GL_MAGR_ADD_UA_CULT Result created by rule GL_MAGR_ADD_UA_CULT1 Performed By: #### 1 [id number] ####[facility] (DEFAULT)[address] [place] [address]47 Glucose (U) [Mass/Vol] mg/dL Normal [facility] Comment on above: Performed By: #### 1 [id number], [id number] ####[facility] (DEFAULT)[address] [place] [address] 69474 Ketones Ql (U) >=80 Normal [facility] Comment on above: Performed By: #### 1 [id number], [id number] ####[facility] (DEFAULT)[address] [place] [address] 18619 Micro? Indicated Invalid Interpretation Code [facility] Comment on above: Result Comment: Resu lt created by rule GL_MAGR_ADD_UA_MICRO Performed By: #### 1 [id number], [id number] ####[facility] (DEFAULT)[address] [place] [address] 83031 UA Bilirubin Negative Normal [facility] Comment on above: Performed By: #### 1 [id number], [id number] ####[facility] (DEFAULT)[address] [place] [address]9562 UA Blood TRACE Abnormal NEGATIVE [facility] Comment on above: Performed By: #### 1 [id number], [id number] ####[facility] (DEFAULT)[address] [place] [address] 11033 UA Clarity CLEAR Normal CLEAR [facility] Comment on above: Performed By: #### 1 [id number], [id number] ####[facility] (DEFAULT)[address] [place] [address] 58380 UA Leuk Est Negative Normal NEGATIVE [facility] Comment on above: Performed By: #### 1 [id number], [id number] ####[facility] (DEFAULT)[address] [place] [address] 08701 UA Nitrite Negative Normal NEGATIVE [facility] Comment on above: Performed By: #### 1 [id number], [id number] ####[facility] (DEFAULT)[address] [place] [address] 49371 UA pH 6.0 Normal 5-8 [facility] Comment on above: Performed By: #### 1 [id number], [id number] ####[facility] (DEFAULT)[address] [place] [address] [id number] UA Protein Negative Normal NEGATIVE [facility] Comment on above: Performed By: #### 1 [id number], [id number] ####[facility] (DEFAULT)[address] [place] [address] 42452 UA Spec Grav 1.025 Normal 1.001-1.035 [facility] Comment on above: Performed By: #### 1 [id number], [id number] ####[facility] (DEFAULT)[address] [place] [address] 08537 UA Urobilinogen 0.2 mg/dL Normal 0.2-1.0 [facility] Comment on above: Performed By: #### 1 [id number], [id number] ####[facility] (DEFAULT)[address] [place] [address] 96652 Urine Source Clean Catch Normal [facility] Comment on above: Performed By: #### 1 [id number], [id number] ####[facility] (DEFAULT)[address] [place] [address] 00901 ACETONE SERUMon 08-25-2022 ACETONE SMALL Abnormal NEGATIVE [facility] Comment on above: Performed By: #### A CETON, PREG #### [facility] [address] [address] [address] Darleen Cho CBC AUTO DIFFon 08-25-2022 BASO # 0.1 103/ul Normal 0.0-0.1 [facility] Comment on above: Performed By: #### B MP #### [facility] [address] [address] [address] Darleen Cho Basophils/100 WBC (Bld) 0.4 % Normal 0.2-2.0 [facility] Comment on above: Performed By: #### B MP #### [facility] [address] [address] [address] Darleen Cho EO # 0.1 103/ul Normal 0.0-0.7 [facility] Comment on above: Performed By: #### B MP #### [facility] [address] [place] [address] Dr. Darleen Cho Eosinophils/100 WBC (Bld) 0.3 % Critically low 0.9-7.0 [facility] Comment on above: Performed By: #### B MP #### [facility] [address] [place] [address] Dr. Darleen Cho Erythrocyte distribution width (RBC) [Ratio] 14.6 % Normal 11.0-15.0 [facility] Comment on above: Performed By: #### B MP #### [facility] [address] [place] [address] Dr. Darleen Cho Hematocrit (Bld) [Volume fraction] 43.9 % Normal 36.0-48.0 [facility] Comment on above: Performed By: #### B MP #### [facility] [address] [place] [address] Dr. Darleen Cho Hemoglobin (Bld) [Mass/Vol] 13.8 g/dL Normal 12.0-16.0 [facility] Comment on above: Performed By: #### B MP #### [facility] [address] [place] [address] Dr. Darleen Cho IG # 0.25 10e3/ul Critically high 0.00-0.03 [facility] Comment on above: Performed By: #### B MP #### [facility] [address] [place] [address] Dr. Darleen Cho IG % 1.1 % Critically high 0.0-0.5 [facility] Comment on above: Performed By: #### B MP #### [facility] [address] [place] [address] Dr. Darleen Cho LYMPH # 2.3 103/ul Normal 1.2-3.8 [facility] Comment on above: Performed By: #### B MP #### [facility] [address] [address] [address] Darleen Cho Lymphocytes/100 WBC (Bld) 10.4 % Critically low 20.5-60.0 [facility] Comment on above: Performed By: #### B MP #### [facility] [address] [address] [address] Darleen Cho MANUAL DIFF REQ NO Normal [facility] Comment on above: Performed By: #### B MP #### [facility] [address] [address] [address] Darleen Cho MCH (RBC) [Entitic mass] 24.1 pg Critically low 26.7-34 .0 [facility] Comment on above: Performed By: #### B MP #### [facility] [address] [place] [address] Dr. Darleen Cho MCHC (RBC) [Mass/Vol] 31.4 g/dL Normal 29.9-35.2 [facility] Comment on above: Performed By: #### B MP #### [facility] [address] [place] [address] Dr. Darleen Cho MCV (RBC) [Entitic vol] 76.7 fL Critically low 81.0-99. 0 [facility] Comment on above: Performed By: #### B MP #### [facility] [address] [place] [address] Dr. Darleen Cho MONO # 0.3 103/ul Normal 0.3-0.8 [facility] Comment on above: Performed By: #### B MP #### [facility] [address] [place] [address] Dr. Darleen Cho Monocytes/100 WBC (Bld) 1.2 % Critically low 1.7-12.0 [facility] Comment on above: Performed By: #### B MP #### [facility] [address] [place] [address] Dr. Darleen Cho NEUT # 19.4 103/ul Critically high 1.4-6.5 [facility] Comment on above: Performed By: #### B MP #### [facility] [address] [place], [place] [id number] Dr. Darleen Cho Neutrophils/100 WBC (Bld) 86.6 % Critically high 43.0-75.0 [facility] Comment on above: Performed By: #### B MP #### [facility] [address] [place] [address] Dr. Darleen Cho Platelet mean volume (Bld) [Entitic vol] 9.1 fL Critically low 9.5-13.5 [facility] Comment on above: Performed By: #### B MP #### [facility] [address] [place] [address] Dr. Darleen Cho PLT 557 103/ul Critically high 150-450 [facility] Comment on above: Performed By: #### B MP #### [facility] [address] [place] [address] Dr. Darleen Cho RBC 5.72 106/ul Critically high 4.20-5.40 [facility] Comment on above: Performed By: #### B MP #### [facility] [address] [place] [address] Dr. Darleen Cho WBC 22.4 103/ul Critically high 4.0-11.0 [facility] Comment on above: Performed By: #### B MP #### [facility] [address] [place] [address] Dr. Darleen Cho CULTURE BLOODon 08-25-2022 Microscopic examination of blood, culture Culture Observations: NO GROWTH AT 5 DAYS. Normal [facility] Comment on above: Performed By: #### B MP #### [facility] [address] [place] [address] Dr. Darleen Cho Microscopic examination of blood, culture Culture Observations: NO GROWTH AT 5 DAYS. Normal [facility] Comment on above: Performed By: #### B MP #### [facility] [address] [place], [place] [id number] Dr. Darleen Cho CULTURE URINEon 08-25-2022 CULTURE URINE Culture Observations: NO GROWTH. Normal [facility] Comment on above: Performed By: #### B MP #### [facility] [address] [place] [address] Dr. Darleen Cho Covid-19 PCR (CVDTBH)on 08-01 SARS-CoV-2 (COVID-19) RNA CARMEN+probe Ql (Unsp spec) Not detected Normal NOT DETECTED [facility] Comment on above: Result Comment: When [...] for this test is supported by the [place] of Health and Human Service's declaration that [...] used). Performed By: #### C VDTBH #### [facility] [address] [place] [address] Dr. Darleen Cho ER URINE PROFILEon 3 Bilirubin Ql (U) SMALL Abnormal NEGATIVE [facility] Comment on above: Performed By: #### U MICRO, ERUR #### [facility] [address] [place] [address] Dr. Darleen Cho Clarity (U) CLEAR Normal CLEAR [facility] Comment on above: Performed By: #### U MICRO, ERUR #### [facility] [address] [place] [address] Dr. Darleen Cho Color (U) LT. YELLOW Normal YELLOW [facility] Comment on above: Performed By: #### U MICRO, ERUR #### [facility] [address] [place] [address] Dr. Darleen Cho ERUAHD A micrscopic examination will be performed if indicated. Normal [facility] Comment on above: Performed By: #### U MICRO, ERUR #### [facility] [address] [address] [address] Darleen Cho Glucose Ql (U) 500 mg/dl Abnormal NEGATIVE [facility] Comment on above: Performed By: #### U MICRO, ERUR #### [facility] [address] [place] [address] Dr. Draleen Cho Hemoglobin Ql (U) MODERATE Abnormal NEGATIVE [facility] Comment on above: Performed By: #### U MICRO, ERUR #### [facility] [address] [address] [address] Darleen Cho Ketones Ql (U) >=80 Abnormal NEGATIVE [facility] Comment on above: Performed By: #### U MICRO, ERUR #### [facility] [address] [place] [address] Dr. Darleen Cho LEUKOCYTES Negative Normal NEGATIVE [facility] Comment on above: Performed By: #### U MICRO, ERUR #### [facility] [address] [place] [address] Dr. Darleen Cho Nitrite Ql (U) Negative Normal NEGATIVE [facility] Comment on above: Performed By: #### U MICRO, ERUR #### [facility] [address] [place] [address] Dr. Darleen Cho pH (U) 5.5 [pH] Normal 5-9 [facility] Comment on above: Performed By: #### U MICRO, ERUR #### [facility] [address] [place] [address] Dr. Darleen Cho Protein (U) [Mass/Vol] 100 mg/dL Abnormal NEGAT MALISSA/ TRACE [facility] Comment on above: Performed By: #### U MICRO, ERUR #### [facility] [address] [place] [address] Dr. Darleen Cho SPEC GRAVITY >=1.030 Abnormal 1.005-<=1.02 5 [facility] Comment on above: Performed By: #### U MICRO, ERUR #### [facility] [address] [place] [address] Dr. Darleen Cho UR MICRO IND INDICATED Normal [facility] Comment on above: Performed By: #### U MICRO, ERUR #### [facility] [address] [place] [address] Dr. Darleen Cho Urobilinogen Qn (U) 0.2 {Ophelia'U}/dL Normal 0.2 - 1. 0 [facility] Comment on above: Performed By: #### U MICRO, ERUR #### [facility] [address] [place] [address] Dr. Darleen Cho HIV 1/2 RAPID (EXPOSURE ONLY )on 08-25-2022 HIV AB Non-Reactive Normal NON-REACTIVE [facility] Comment on above: Performed By: #### R PDHIV #### [facility] [address] [place] [address] Dr. Darleen Cho HIV AG Non-Reactive Normal NON-REACTIVE [facility] Comment on above: Performed By: #### R PDHIV #### [facility] [address] [place] [address] Dr. Darleen Cho INTERNAL CONTROLS Within Normal Limits Normal Wi thin Normal Limits [facility] Comment on above: Performed By: #### R PDHIV #### [facility] [address] [place] [address] Dr. Darleen Cho RAPID HIV INFO SEE BELOW Normal [facility] Comment on above: Result Comment: This test is used for the initial screening of the exposure source. Confirmation of all reactive results will be obtained through reference lab testing. Performed By: #### R PDHIV #### [facility] [address] [place] [address] Dr. Darleen Cho PH VENOUS BLOODon 08-25-2022 PCO2 VENOUS 24.1 mmHg Critically low 40.0-52.0 [facility] Comment on above: Performed By: #### B MP #### [facility] [address] [place] [address] Dr. Darleen Cho pH VENOUS 7.288 Critically low 7.330-7.430 [facility] Comment on above: Performed By: #### B MP #### [facility] [address] [place] [address] Dr. Darleen Cho PCO2 VENOUS 18.1 mmHg Critically low 40.0-52.0 [facility] Comment on above: Performed By: #### P HVEN #### [facility] [address] [place] [address] Dr. Darleen Cho pH VENOUS 7.157 Critically low 7.330-7.430 [facility] Comment on above: Performed By: #### P HVEN #### [facility] [address] [address] [address] Darleen Cho PCO2 VENOUS 18.3 mmHg Critically low 40.0-52.0 [facility] Comment on above: Performed By: #### P HVEN #### [facility] [address] [address] [address] Darleen Cho pH VENOUS 6.933 Critically low 7.330-7.430 [facility] Comment on above: Performed By: #### P HVEN #### [facility] [address] [place] [address] Dr. Darleen Cho POINT OF CARE GLUCOSEon 08-01 Glucose [Mass/Vol] 201 mg/dL Critically high 74-106 [facility] Comment on above: Performed By: #### B MP #### [facility] [address] [place] [address] Dr. Darleen Cho Glucose [Mass/Vol] 373 mg/dL Critically high 74-106 [facility] Comment on above: Performed By: #### B MP #### [facility] [address] [address] [address] Darleen Cho Glucose [Mass/Vol] 433 mg/dL Critically high 74-106 [facility] Comment on above: Performed By: #### B MP #### [facility] [address] [place] [address] Dr. Darleen Cho PREG HCG QUALon 08-25-2022 , QUAL Negative Normal NEGATIVE [facility] Comment on above: Performed By: #### A CETON, PREG #### [facility] [address] [place] [address] Dr. Darleen Cho PROF CHEM 8 (BAS METB)on Anion gap [Moles/Vol] 19.7 mmol/L Normal [facility] Comment on above: Performed By: #### B MP #### [facility] [address] [address] [address] Darleen Cho Calcium [Mass/Vol] 7.2 mg/dL Critically low 8.5-10.1 [facility] Comment on above: Performed By: #### B MP #### [facility] [address] [place] [address] Dr. Darleen Cho Chloride [Moles/Vol] 100 mmol/L Normal 98-107 [facility] Comment on above: Performed By: #### B MP #### [facility] [address] [place] [address] Dr. Darleen Cho CO2 [Moles/Vol] 13.5 mmol/L Critically low 21.0-32.0 [facility] Comment on above: Performed By: #### B MP #### [facility] [address] [place] [address] Dr. Darleen Cho Creatinine [Mass/Vol] 0.71 mg/dL Normal 0.55-1.02 [facility] Comment on above: Performed By: #### B MP #### [facility] [address] [place] [address] Dr. Darleen Cho EGFR-AF [place] >60 Normal >=60 [facility] Comment on above: Performed By: #### B MP #### [facility] [address] [place] [address] Dr. Darleen Cho EGFR-NON AF [place] >60 Normal >=60 [facility] Comment on above: Performed By: #### B MP #### [facility] [address] [place] [address] Dr. Darleen Cho Glucose [Mass/Vol] 333 mg/dL Critically high 74-106 [facility] Comment on above: Performed By: #### B MP #### [facility] [address] [place] [address] Dr. Darleen Cho Potassium [Moles/Vol] 3.2 mmol/L Critically low 3.5-5.1 [facility] Comment on above: Performed By: #### B MP #### [facility] [address] [address] [address] Darleen Cho Sodium [Moles/Vol] 130 mmol/L Critically low 136-145 [facility] Comment on above: Performed By: #### B MP #### [facility] [address] [address] [address] Darleen Cho Urea nitrogen [Mass/Vol] 8.0 mg/dL Normal 7.0-18.0 [facility] Comment on above: Performed By: #### B MP #### [facility] [address] [address] [address] Darleen Cho Urea nitrogen/Creatinine [Mass ratio] 11.3 mg/mg Normal [facility] Comment on above: Performed By: #### B MP #### [facility] [address] [address] [address] Darleen Cho Anion gap [Moles/Vol] 24.7 mmol/L Normal [facility] Comment on above: Performed By: #### B MP #### [facility] [address] [address] [address] Darleen Cho Calcium [Mass/Vol] 7.2 mg/dL Critically low 8.5-10.1 [facility] Comment on above: Performed By: #### B MP #### [facility] [address] [address] [address] Darleen Cho Chloride [Moles/Vol] 102 mmol/L Normal 98-107 [facility] Comment on above: Performed By: #### B MP #### [facility] [address] [address] [address] Darleen Cho CO2 [Moles/Vol] 8.6 mmol/L Critically low 21.0-32.0 [facility] Comment on above: Performed By: #### B MP #### [facility] [address] [address] [address] Darleen Cho Creatinine [Mass/Vol] 0.63 mg/dL Normal 0.55-1.02 [facility] Comment on above: Performed By: #### B MP #### [facility] [address] [address] [address] Darleen Cho EGFR-AF [place] >60 Normal >=60 [facility] Comment on above: Performed By: #### B MP #### [facility] [address] [address] [address] Darleen Cho EGFR-NON AF [place] >60 Normal >=60 [facility] Comment on above: Performed By: #### B MP #### [facility] [address] [address] [address] Darleen Cho Glucose [Mass/Vol] 228 mg/dL Critically high 74-106 [facility] Comment on above: Performed By: #### B MP #### [facility] [address] [place] [address] Dr. Darleen Cho Potassium [Moles/Vol] 3.3 mmol/L Critically low 3.5-5.1 [facility] Comment on above: Performed By: #### B MP #### [facility] [address] [place] [address] Dr. Darleen Cho Sodium [Moles/Vol] 132 mmol/L Critically low 136-145 [facility] Comment on above: Performed By: #### B MP #### [facility] [address] [place] [address] Dr. Darleen Cho Urea nitrogen [Mass/Vol] 11.0 mg/dL Normal 7.0-18.0 [facility] Comment on above: Performed By: #### B MP #### [facility] [address] [place] [address] Dr. Darleen Cho Urea nitrogen/Creatinine [Mass ratio] 17.5 mg/mg Normal [facility] Comment on above: Performed By: #### B MP #### [facility] [address] [place] [address] Dr. Darleen Cho Anion gap [Moles/Vol] 29.5 mmol/L Normal [facility] Comment on above: Performed By: #### B MP #### [facility] [address] [place] [address] Dr. Darleen Cho Calcium [Mass/Vol] 8.6 mg/dL Normal 8.5-10.1 [facility] Comment on above: Performed By: #### B MP #### [facility] [address] [address] [address] Darleen Cho Chloride [Moles/Vol] 94 mmol/L Critically low 98-107 [facility] Comment on above: Performed By: #### B MP #### [facility] [address] [address] [address] Darleen Cho CO2 [Moles/Vol] 5.9 mmol/L Critically low 21.0-32.0 [facility] Comment on above: Performed By: #### B MP #### [facility] [address] [place] [address] Dr. Darleen Cho Creatinine [Mass/Vol] 0.94 mg/dL Normal 0.55-1.02 [facility] Comment on above: Performed By: #### B MP #### [facility] [address] [place] [address] Dr. Darleen Cho EGFR-AF [place] >60 Normal >=60 [facility] Comment on above: Performed By: #### B MP #### [facility] [address] [address] [address] Darleen Cho EGFR-NON AF [place] >60 Normal >=60 [facility] [facility] Comment on above: Performed By: #### B MP #### [facility] [address] [address] [address] Darleen Cho Glucose [Mass/Vol] 403 mg/dL Critically high 74-106 [facility] Comment on above: Performed By: #### B MP #### [facility] [address] [address] [address] Darleen Cho Potassium [Moles/Vol] 4.4 mmol/L Normal 3.5-5.1 [facility] Comment on above: Performed By: #### B MP #### [facility] [address] [place] [address] Dr. Darleen Cho Sodium [Moles/Vol] 125 mmol/L Critically low 136-145 [facility] Comment on above: Performed By: #### B MP #### [facility] [address] [address] [address] Darleen Cho Urea nitrogen [Mass/Vol] 10.0 mg/dL Normal 7.0-18.0 [facility] Comment on above: Performed By: #### B MP #### [facility] [address] [address] [address] Darleen Cho Urea nitrogen/Creatinine [Mass ratio] 10.6 mg/mg Normal [facility] Comment on above: Performed By: #### B MP #### [facility] [address] [address] [address] Darleen Cho URINE MICROSCOPIC ONLYon BACTERIA TRACE Abnormal NONE SEEN [facility] Comment on above: Performed By: #### U MICRO, ERUR #### [facility] [address] [place] [address] Dr. Darleen Cho Bacteria identified Cx Nom (U) NOT INDICATED Normal [facility] Comment on above: Performed By: #### U MICRO, ERUR #### [facility] [address] [place] [address] Dr. Darleen Cho CAST NONE SEEN Normal NONE SEEN [facility] Comment on above: Performed By: #### U MICRO, ERUR #### [facility] [address] [place] [address] Dr. Darleen Cho Crystals LM Nom (Urine sed) NONE SEEN Normal NONE SEEN [facility] Comment on above: Performed By: #### U MICRO, ERUR #### [facility] [address] [place] [address] Dr. Darleen Cho Epithelial cells LM Ql (Urine sed) FEW Abnormal NONE SEEN /RARE [facility] Comment on above: Performed By: #### U MICRO, ERUR #### [facility] [address] [place] [address] Dr. Darleen Cho MUCOUS NONE SEEN Normal NONE SEEN [facility] Comment on above: Performed By: #### U MICRO, ERUR #### [facility] [address] [place] [address] Dr. Darleen Cho RBC 2-5 Abnormal 0-2 [facility] Comment on above: Performed By: #### U MICRO, ERUR #### [facility] [address] [address] [address] Darleen Cho WBC 0-2 Abnormal NONE SEEN [facility] Comment on above: Performed By: #### U MICRO, ERUR #### [facility] [address] [address] [address] Darleen Cho XR CHEST 1 Von 08-25-2022 XR CHEST 1 V EXAM: XR CHEST 1 V INDICATION: SHORTNESS OF BREATH. COMPARISON: None. TECHNIQUE: Single frontal view of the chest FINDINGS: Normal cardiomediastinal contours. Clear lungs. No pleural effusion or pneumothorax. No acute osseous abnormality. IMPRESSION: No acute cardiopulmonary process. Electronically authenticated by: ROSA M MENDEZ Date: 2022-08-25 12:46 Normal [facility] Covid-19 PCR (CVDTB)on 02-28 SARS-CoV-2 (COVID-19) RNA CARMEN+probe Ql (Unsp spec) Not detected Normal NOT DETECTED [facility] Comment on above: Result Comment: This test is not yet approved or cleared by the [place] FDA. When there are no FDA-approved or cleared tests available, and other criteria are met, FDA can make tests available under an emergency access mechanism called an Emergency Use Authorization (EUA). The EUA for this test is supported by the [place] of Health and Human Service's (HHS's) declaration [...] Performed By: #### A CETON, PREG #### [facility] [address] [address] [address] Darleen Cho Basic Metabolic Panelon Anion gap [Moles/Vol] 10 mmol/L 9 - 17 mmol/L [place] Bun/Cre Ratio NOT REPORTED [place] Calcium [Mass/Vol] 8.3 mg/dL Low 8.6 - 10. 4 mg/dL [place] Chloride [Moles/Vol] 106 mmol/L 98 - 10 7 mmol/L [place] CO2 [Moles/Vol] 16 mmol/L Low 20 - 31 mmol/L [place] Creatinine [Mass/Vol] 0.53 mg/dL 0.5 - 0.9 mg/dL [place] GFR >60 >60 mL/min [place] GFR Non- >60 >60 mL/min [place] GFR/1.73 sq M predicted among non-blacks MDRD (S/P/Bld) [Vol rate/Area] [place] Comment on above: Average GFR for 20-2 9 years old: 116 mL/min/1.73sq m Chronic Kidney Disease: <60 mL/min/1.73sq m Kidney failure: <15 mL/min/1.73sq m eGFR calculated using average adult body mass. Additional eGFR calculator available at: http://www.Revisu/multiple_crcl_2012.htm GFR/1.73 sq M predicted among non-blacks MDRD (S/P/Bld) [Vol rate/Area] NOT REPORTED [place] Glucose [Mass/Vol] 208 mg/dL High 70 - 99 mg/dL [place] Interpretation and review of laboratory results Abnormal [place] Potassium [Moles/Vol] 3.5 mmol/L Low 3.7 - 5.3 mmol/L [place] Sodium [Moles/Vol] 132 mmol/L Low 135 - 144 mmol/L [place] Urea nitrogen [Mass/Vol] 9 mg/dL 6 - 20 mg/d L [place] Anion gap [Moles/Vol] 13 mmol/L 9 - 17 mmol/L [place] Bun/Cre Ratio NOT REPORTED [place] Calcium [Mass/Vol] 8.4 mg/dL Low 8.6 - 10. 4 mg/dL [place] Chloride [Moles/Vol] 107 mmol/L 98 - 10 7 mmol/L [place] CO2 [Moles/Vol] 16 mmol/L Low 20 - 31 mmol/L [place] Creatinine [Mass/Vol] 0.6 mg/dL 0.5 - 0.9 mg/dL [place] GFR >60 >60 mL/min [place] GFR Non- >60 >60 mL/min [place] GFR/1.73 sq M predicted among non-blacks MDRD (S/P/Bld) [Vol rate/Area] NOT REPORTED [place] GFR/1.73 sq M predicted among non-blacks MDRD (S/P/Bld) [Vol rate/Area] [place] Comment on above: Average GFR for 20-2 9 years old: 116 mL/min/1.73sq m Chronic Kidney Disease: <60 mL/min/1.73sq m Kidney failure: <15 mL/min/1.73sq m eGFR calculated using average adult body mass. Additional eGFR calculator available at: http://www.Revisu/multiple_crcl_2012.htm Glucose [Mass/Vol] 189 mg/dL High 70 - 99 mg/dL [place] Interpretation and review of laboratory results Abnormal [place] Potassium [Moles/Vol] 3.6 mmol/L Low 3.7 - 5.3 mmol/L [place] Sodium [Moles/Vol] 136 mmol/L 135 - 144 mmol/L [place] Urea nitrogen [Mass/Vol] 7 mg/dL 6 - 20 mg/d L [place] Anion gap [Moles/Vol] 8 mmol/L Low 9 - 17 mmol/L [place] Bun/Cre Ratio NOT REPORTED [place] Calcium [Mass/Vol] 7.6 mg/dL Low 8.6 - 10. 4 mg/dL [place] Chloride [Moles/Vol] 110 mmol/L High 98 - 10 7 mmol/L [place] CO2 [Moles/Vol] 16 mmol/L Low 20 - 31 mmol/L [place] Creatinine [Mass/Vol] 0.41 mg/dL Low 0.5 - 0.9 mg/dL [place] GFR >60 >60 mL/min [place] GFR Non- >60 >60 mL/min [place] GFR/1.73 sq M predicted among non-blacks MDRD (S/P/Bld) [Vol rate/Area] [place] Comment on above: Average GFR for 20-2 9 years old: 116 mL/min/1.73sq m Chronic Kidney Disease: <60 mL/min/1.73sq m Kidney failure: <15 mL/min/1.73sq m eGFR calculated using average adult body mass. Additional eGFR calculator available at: http://www.Revisu/multiple_crcl_2012.htm GFR/1.73 sq M predicted among non-blacks MDRD (S/P/Bld) [Vol rate/Area] NOT REPORTED [place] Glucose [Mass/Vol] 188 mg/dL High 70 - 99 mg/dL [place] Interpretation and review of laboratory results Abnormal [place] Potassium [Moles/Vol] 3.6 mmol/L Low 3.7 - 5.3 mmol/L [place] Sodium [Moles/Vol] 134 mmol/L Low 135 - 144 mmol/L [place] Urea nitrogen [Mass/Vol] 5 mg/dL Low 6 - 20 mg/d L [place] Anion gap [Moles/Vol] 9 mmol/L 9 - 17 mmol/L [place] Bun/Cre Ratio NOT REPORTED [place] Calcium [Mass/Vol] 7.6 mg/dL Low 8.6 - 10. 4 mg/dL [place] Chloride [Moles/Vol] 118 mmol/L High 98 - 10 7 mmol/L [place] CO2 [Moles/Vol] 17 mmol/L Low 20 - 31 mmol/L [place] Creatinine [Mass/Vol] 0.46 mg/dL Low 0.5 - 0.9 mg/dL [place] GFR >60 >60 mL/min [place] GFR Non- >60 >60 mL/min [place] GFR/1.73 sq M predicted among non-blacks MDRD (S/P/Bld) [Vol rate/Area] NOT REPORTED [place] GFR/1.73 sq M predicted among non-blacks MDRD (S/P/Bld) [Vol rate/Area] [place] Comment on above: Average GFR for 20-2 9 years old: 116 mL/min/1.73sq m Chronic Kidney Disease: <60 mL/min/1.73sq m Kidney failure: <15 mL/min/1.73sq m eGFR calculated using average adult body mass. Additional eGFR calculator available at: http://www.Revisu/multiple_crcl_2012.htm Glucose [Mass/Vol] 112 mg/dL High 70 - 99 mg/dL [place] Potassium [Moles/Vol] 3.1 mmol/L Low 3.7 - 5.3 mmol/L [place] Sodium [Moles/Vol] 144 mmol/L 135 - 144 mmol/L [place] Urea nitrogen [Mass/Vol] 5 mg/dL Low 6 - 20 mg/d L [place] Anion gap [Moles/Vol] 7 mmol/L Low 9 - 17 mmol/L [place] Bun/Cre Ratio NOT REPORTED [place] Calcium [Mass/Vol] 6.8 mg/dL Low 8.6 - 10. 4 mg/dL [place] Chloride [Moles/Vol] 114 mmol/L High 98 - 10 7 mmol/L [place] CO2 [Moles/Vol] 15 mmol/L Low 20 - 31 mmol/L [place] Creatinine [Mass/Vol] 0.47 mg/dL Low 0.5 - 0.9 mg/dL [place] GFR >60 >60 mL/min [place] GFR Non- >60 >60 mL/min [place] GFR/1.73 sq M predicted among non-blacks MDRD (S/P/Bld) [Vol rate/Area] [place] Comment on above: Average GFR for 20-2 9 years old: 116 mL/min/1.73sq m Chronic Kidney Disease: <60 mL/min/1.73sq m Kidney failure: <15 mL/min/1.73sq m eGFR calculated using average adult body mass. Additional eGFR calculator available at: http://www.Revisu/multiple_crcl_2011.htm GFR/1.73 sq M predicted among non-blacks MDRD (S/P/Bld) [Vol rate/Area] NOT REPORTED [place] Glucose [Mass/Vol] 230 mg/dL High 70 - 99 mg/dL [place] Potassium [Moles/Vol] 3.3 mmol/L Low 3.7 - 5.3 mmol/L [place] Sodium [Moles/Vol] 136 mmol/L 135 - 144 mmol/L [place] Urea nitrogen [Mass/Vol] 5 mg/dL Low 6 - 20 mg/d L [place] CBC WITH AUTO DIFFERENTIALon 08-01-2020 Basophils (Bld) [#/Vol] 10*3/uL [place] Basophils/100 WBC (Bld) 0 % 0 - 2 % [place] Differential Type NOT REPORTED [place] Eosinophils (Bld) [#/Vol] 0.05 10*3/uL [place] Eosinophils/100 WBC (Bld) 1 % 1 - 4 % [place] Erythrocyte distribution width (RBC) [Ratio] 14.6 % High 11.8 - 14.4 % [place] Hematocrit (Bld) [Volume fraction] 30.7 % Low 36.3 - 47.1 % [place] Hemoglobin (Bld) [Mass/Vol] 10.0 g/dL Low 11.9 - 15.1 g/dL [place] Immature granulocytes (Bld) [#/Vol] 10*3/uL [place] Immature granulocytes (Bld) [#/Vol] 0 % 0 [place] Interpretation and review of laboratory results Abnormal [place] Lymphocytes (Bld) [#/Vol] 1.79 10*3/uL [place] Lymphocytes/100 WBC (Bld) 28 % 24 - 43 % [place] MCH (RBC) [Entitic mass] 26.0 pg 25. 2 - 33.5 pg [place] MCHC (RBC) [Mass/Vol] 32.6 g/dL 28.4 - 34.8 g/dL [place] MCV (RBC) [Entitic vol] 79.9 fL Low 82.6 - 102.9 fL [place] Monocytes (Bld) [#/Vol] 0.27 10*3/uL [place] Monocytes/100 WBC (Bld) 4 % 3 - 12 % [place] Platelet mean volume (Bld) [Entitic vol] 10.0 fL 8.1 - 13.5 fL [place] Platelets (Bld) [#/Vol] NOT REPORTED [place] Platelets (Bld) [#/Vol] 130 10*3/uL Low [place] RBC (Bld) [#/Vol] 3.84 10*6/uL Low 3.95 - 5.1 1 m/uL [place] RBC morphology finding Nom (Bld) ANISOCYTOSIS PRESENT [place] Comment on above: MICROCYTOSIS PRESENT Segmented neutrophils/100 WBC (Bld) 67 % High 36 - 65 % [place] Segs Absolute 4.37 [place] WBC (Bld) [#/Vol] 0.0 10*3/uL 0.0 per 10 0 WBC [place] WBC (Bld) [#/Vol] 6.5 10*3/uL [place] WBC Morphology NOT REPORTED [place] EKG 12 Leadon 08-01-2020 Atrial Rate 109 BPM [place] P [place] 23 degrees [place] P-R Interval 148 ms [place] Q-T Interval 424 ms [place] QRS Duration 78 ms [place] QTc Calculation (Bazett) 570 ms [place] R [place] 93 degrees [place] T [place] 111 degrees [place] Ventricular Rate 109 BPM [place] Wong, Mhpn Incoming Ekg Results From [facility] [place] 08/01/2020 11:21 AM EST Sinus tachycardia Rightward axis Septal infarct , age undetermined ST & T wave abnormality, consider lateral ischemia Prolonged QT Abnormal ECG No previous ECGs available [place] Sinus tachycardia Rightward axis Septal infarct , age undetermined ST & T wave abnormality, consider lateral ischemia Prolonged QT Abnormal ECG No previous ECGs available [place] HEMOGLOBIN A1Con 08-01-2020 Glucose [Mass/Vol] 499 mg/dL [place] Comment on above: The ADA and AACC rec ommend providing the estimated average glucose result to permit better patient understanding of their HBA1c result. HbA1c (Bld) [Mass fraction] 19.0 % High 4 - 6 % [place] Interpretation and review of laboratory results Abnormal [place] Magnesiumon 08-01-2020 Magnesium [Mass/Vol] 1.7 mg/dL 1.6 - 2 .6 mg/dL [place] Magnesium [Mass/Vol] 2.0 mg/dL 1.6 - 2 .6 mg/dL [place] Magnesium [Mass/Vol] 1.7 mg/dL 1.6 - 2 .6 mg/dL [place] Magnesium [Mass/Vol] 2.0 mg/dL 1.6 - 2 .6 mg/dL [place] Magnesium [Mass/Vol] 1.8 mg/dL 1.6 - 2 .6 mg/dL [place] Otheron 08-01-2020 Interpretation and review of laboratory results Abnormal [place] Interpretation and review of laboratory results Abnormal [place] POC Glucose Fingerstickon Glucose [Mass/Vol] 174 mg/dL High 65 - 105 mg/dL [place] Interpretation and review of laboratory results Abnormal [place] Glucose [Mass/Vol] 187 mg/dL High 65 - 105 mg/dL [place] Interpretation and review of laboratory results Abnormal [place] Glucose [Mass/Vol] 104 mg/dL 65 - 105 mg/dL [place] Glucose [Mass/Vol] 295 mg/dL High 65 - 105 mg/dL [place] Interpretation and review of laboratory results Abnormal [place] , URINEon Beta HCG ( test) Ql (U) Negative NEGATIVE [place] Comment on above: Specimens with hCG [...] 2.7 mg/dL 2.6 - 4 .5 mg/dL [place] Phosphate [Mass/Vol] 2.7 mg/dL 2.6 - 4 .5 mg/dL [place] Phosphate [Mass/Vol] 2.9 mg/dL 2.6 - 4 .5 mg/dL [place] Phosphate [Mass/Vol] 2.2 mg/dL Low 2.6 - 4 .5 mg/dL [place] Phosphate [Mass/Vol] 1.6 mg/dL Low 2.6 - 4 .5 mg/dL [place] Anion Gap (Calc) POCon 07-31 Anion gap [Moles/Vol] 17 mmol/L High 7 - 16 mmol/L [place] Arterial Blood Gas, POCon Cami Test NOT REPORTED [place] aPTT Coag (Bld) [Time] NOT REPORTED [place] FIO2 30.0 [place] Mode PRVC [place] Negative Base Excess, Art 28 High [place] O2 Device/Flow/% Adult Ventilator Me [place] Oxygen saturation in Blood 88 % Low 94 - 98 % [place] POC HCO3 3.5 mmol/L Critically low 21 - 28 mmol/L [place] POC pCO2 18.0 Low [place] POC pCO2 Temp NOT REPORTED mm Hg [place] POC pH 6.893 Critically low [place] POC pH Temp NOT REPORTED [place] POC PO2 88.9 [place] POC pO2 Temp NOT REPORTED mm Hg [place] Positive Base Excess, Art NOT REPORTED [place] Sample Site Arterial Line [place] TCO2 (calc), Art <5 Low 22 - 29 mmol/L [place] Basic Metabolic Panelon 02-0 Anion gap [Moles/Vol] 11 mmol/L 9 - 17 mmol/L [place] Bun/Cre Ratio NOT REPORTED [place] Calcium [Mass/Vol] 7.4 mg/dL Low 8.6 - 10. 4 mg/dL [place] Chloride [Moles/Vol] 113 mmol/L High 98 - 10 7 mmol/L [place] CO2 [Moles/Vol] 14 mmol/L Low 20 - 31 mmol/L [place] Creatinine [Mass/Vol] 0.49 mg/dL Low 0.5 - 0.9 mg/dL [place] GFR >60 >60 mL/min [place] GFR Non- >60 >60 mL/min [place] GFR/1.73 sq M predicted among non-blacks MDRD (S/P/Bld) [Vol rate/Area] NOT REPORTED [place] GFR/1.73 sq M predicted among non-blacks MDRD (S/P/Bld) [Vol rate/Area] [place] Comment on above: Average GFR for 20-2 9 years old: 116 mL/min/1.73sq m Chronic Kidney Disease: <60 mL/min/1.73sq m Kidney failure: <15 mL/min/1.73sq m eGFR calculated using average adult body mass. Additional eGFR calculator available at: http://www.Revisu/multiple_crcl_2012.htm Glucose [Mass/Vol] 262 mg/dL High 70 - 99 mg/dL [place] Potassium [Moles/Vol] 3.5 mmol/L Low 3.7 - 5.3 mmol/L [place] Sodium [Moles/Vol] 138 mmol/L 135 - 144 mmol/L [place] Urea nitrogen [Mass/Vol] 6 mg/dL 6 - 20 mg/d L [place] Anion gap [Moles/Vol] 9 mmol/L 9 - 17 mmol/L [place] Bun/Cre Ratio NOT REPORTED [place] Calcium [Mass/Vol] 7.8 mg/dL Low 8.6 - 10. 4 mg/dL [place] Chloride [Moles/Vol] 112 mmol/L High 98 - 10 7 mmol/L [place] CO2 [Moles/Vol] 15 mmol/L Low 20 - 31 mmol/L [place] Creatinine [Mass/Vol] 0.5 mg/dL 0.5 - 0.9 mg/dL [place] GFR >60 >60 mL/min [place] GFR Non- >60 >60 mL/min [place] GFR/1.73 sq M predicted among non-blacks MDRD (S/P/Bld) [Vol rate/Area] NOT REPORTED [place] GFR/1.73 sq M predicted among non-blacks MDRD (S/P/Bld) [Vol rate/Area] [place] Comment on above: Average GFR for 20-2 9 years old: 116 mL/min/1.73sq m Chronic Kidney Disease: <60 mL/min/1.73sq m Kidney failure: <15 mL/min/1.73sq m eGFR calculated using average adult body mass. Additional eGFR calculator available at: http://www.Revisu/multiple_crcl_2012.htm Glucose [Mass/Vol] 138 mg/dL High 70 - 99 mg/dL [place] Potassium [Moles/Vol] 3.5 mmol/L Low 3.7 - 5.3 mmol/L [place] Sodium [Moles/Vol] 136 mmol/L 135 - 144 mmol/L [place] Urea nitrogen [Mass/Vol] 6 mg/dL 6 - 20 mg/d L [place] Anion gap [Moles/Vol] 12 mmol/L 9 - 17 mmol/L [place] Bun/Cre Ratio NOT REPORTED [place] Calcium [Mass/Vol] 6.9 mg/dL Low 8.6 - 10. 4 mg/dL [place] Chloride [Moles/Vol] 113 mmol/L High 98 - 10 7 mmol/L [place] CO2 [Moles/Vol] 10 mmol/L Low 20 - 31 mmol/L [place] Creatinine [Mass/Vol] 0.57 mg/dL 0.5 - 0.9 mg/dL [place] GFR >60 >60 mL/min [place] GFR Non- >60 >60 mL/min [place] GFR/1.73 sq M predicted among non-blacks MDRD (S/P/Bld) [Vol rate/Area] NOT REPORTED [place] GFR/1.73 sq M predicted among non-blacks MDRD (S/P/Bld) [Vol rate/Area] [place] Comment on above: Average GFR for 20-2 9 years old: 116 mL/min/1.73sq m Chronic Kidney Disease: <60 mL/min/1.73sq m Kidney failure: <15 mL/min/1.73sq m eGFR calculated using average adult body mass. Additional eGFR calculator available at: http://www.Revisu/multiple_crcl_2012.htm Glucose [Mass/Vol] 418 mg/dL Critically high 70 - 9 9 mg/dL [place] Potassium [Moles/Vol] 3.9 mmol/L 3.7 - 5.3 mmol/L [place] Comment on above: SPECIMEN SLIGHTLY HE MOLYZED, RESULTS MAY BE ADVERSELY AFFECTED. Sodium [Moles/Vol] 135 mmol/L 135 - 144 mmol/L [place] Urea nitrogen [Mass/Vol] 7 mg/dL 6 - 20 mg/d L [place] Anion gap [Moles/Vol] 8 mmol/L Low 9 - 17 mmol/L [place] Bun/Cre Ratio NOT REPORTED [place] Calcium [Mass/Vol] 7.0 mg/dL Low 8.6 - 10. 4 mg/dL [place] Chloride [Moles/Vol] 115 mmol/L High 98 - 10 7 mmol/L [place] CO2 [Moles/Vol] 15 mmol/L Low 20 - 31 mmol/L [place] Creatinine [Mass/Vol] 0.53 mg/dL 0.5 - 0.9 mg/dL [place] GFR >60 >60 mL/min [place] GFR Non- >60 >60 mL/min [place] GFR/1.73 sq M predicted among non-blacks MDRD (S/P/Bld) [Vol rate/Area] [place] Comment on above: Average GFR for 20-2 9 years old: 116 mL/min/1.73sq m Chronic Kidney Disease: <60 mL/min/1.73sq m Kidney failure: <15 mL/min/1.73sq m eGFR calculated using average adult body mass. Additional eGFR calculator available at: http://www.[employer].Cotopaxi/multiple_crcl_2012.htm GFR/1.73 sq M predicted among non-blacks MDRD (S/P/Bld) [Vol rate/Area] NOT REPORTED [place] Glucose [Mass/Vol] 150 mg/dL High 70 - 99 mg/dL [place] Potassium [Moles/Vol] 3.3 mmol/L Low 3.7 - 5.3 mmol/L [place] Sodium [Moles/Vol] 138 mmol/L 135 - 144 mmol/L [place] Urea nitrogen [Mass/Vol] 9 mg/dL 6 - 20 mg/d L [place] Anion gap [Moles/Vol] 7 mmol/L Low 9 - 17 mmol/L [place] Bun/Cre Ratio NOT REPORTED [place] Calcium [Mass/Vol] 6.8 mg/dL Low 8.6 - 10. 4 mg/dL [place] Chloride [Moles/Vol] 114 mmol/L High 98 - 10 7 mmol/L [place] CO2 [Moles/Vol] 16 mmol/L Low 20 - 31 mmol/L [place] Creatinine [Mass/Vol] 0.51 mg/dL 0.5 - 0.9 mg/dL [place] GFR >60 >60 mL/min [place] GFR Non- >60 >60 mL/min [place] GFR/1.73 sq M predicted among non-blacks MDRD (S/P/Bld) [Vol rate/Area] [place] Comment on above: Average GFR for 20-2 9 years old: 116 mL/min/1.73sq m Chronic Kidney Disease: <60 mL/min/1.73sq m Kidney failure: <15 mL/min/1.73sq m eGFR calculated using average adult body mass. Additional eGFR calculator available at: http://www.[employer].Cotopaxi/multiple_crcl_2012.htm GFR/1.73 sq M predicted among non-blacks MDRD (S/P/Bld) [Vol rate/Area] NOT REPORTED [place] Glucose [Mass/Vol] 190 mg/dL High 70 - 99 mg/dL [place] Potassium [Moles/Vol] 3.7 mmol/L 3.7 - 5.3 mmol/L [place] Sodium [Moles/Vol] 137 mmol/L 135 - 144 mmol/L [place] Urea nitrogen [Mass/Vol] 11 mg/dL 6 - 20 mg/d L [place] Anion gap [Moles/Vol] 6 mmol/L Low 9 - 17 mmol/L [place] Bun/Cre Ratio NOT REPORTED [place] Calcium [Mass/Vol] 6.9 mg/dL Low 8.6 - 10. 4 mg/dL [place] Chloride [Moles/Vol] 115 mmol/L High 98 - 10 7 mmol/L [place] CO2 [Moles/Vol] 17 mmol/L Low 20 - 31 mmol/L [place] Creatinine [Mass/Vol] 0.56 mg/dL 0.5 - 0.9 mg/dL [place] GFR >60 >60 mL/min [place] GFR Non- >60 >60 mL/min [place] GFR/1.73 sq M predicted among non-blacks MDRD (S/P/Bld) [Vol rate/Area] NOT REPORTED [place] GFR/1.73 sq M predicted among non-blacks MDRD (S/P/Bld) [Vol rate/Area] [place] Comment on above: Average GFR for 20-2 9 years old: 116 mL/min/1.73sq m Chronic Kidney Disease: <60 mL/min/1.73sq m Kidney failure: <15 mL/min/1.73sq m eGFR calculated using average adult body mass. Additional eGFR calculator available at: http://www.[employer].Cotopaxi/multiple_crcl_2012.htm Glucose [Mass/Vol] 180 mg/dL High 70 - 99 mg/dL [place] Potassium [Moles/Vol] 3.9 mmol/L 3.7 - 5.3 mmol/L [place] Sodium [Moles/Vol] 138 mmol/L 135 - 144 mmol/L [place] Urea nitrogen [Mass/Vol] 11 mg/dL 6 - 20 mg/d L [place] CALCIUM, IONIC (POC)on 07-31 POC Ionized Calcium 1.07 mmol/L Low 1.15 - 1 .33 mmol/L [place] CHLORIDE (POC)on 07-31-2020 Chloride [Moles/Vol] 116 mmol/L High 98 - 10 7 mmol/L [place] Creatinine W/GFR Point of Ca reon 07-31-2020 Creatinine [Mass/Vol] 0.78 mg/dL 0.51 - 1.19 mg/dL [place] GFR Non- >60 >60 mL/min [place] GFR/1.73 sq M predicted among non-blacks MDRD (S/P/Bld) [Vol rate/Area] mL/min/{1.73_m2} >60 mL/min [place] GFR/1.73 sq M predicted among non-blacks MDRD (S/P/Bld) [Vol rate/Area] [place] Comment on above: Average GFR for 20-2 9 years old: 116 mL/min/1.73sq m Chronic Kidney Disease: <60 mL/min/1.73sq m Kidney failure: <15 mL/min/1.73sq m eGFR calculated using average adult body mass. Additional eGFR calculator available at: http://www.Revisu/multiple_crcl_2012.htm Hemoglobin and hematocrit, b loodon 07-31-2020 Hematocrit (Bld) [Volume fraction] 44 % 36 - 46 % [place] Hemoglobin (Bld) [Mass/Vol] 14.9 g/dL 12 - 16 g/dL [place] Lactic Acid, POCon POC Lactic Acid 0.60 mmol/L 0.56 - 1.39 mmol/L [place] Magnesiumon 07-31-2020 Magnesium [Mass/Vol] 1.9 mg/dL 1.6 - 2 .6 mg/dL [place] Magnesium [Mass/Vol] 2.2 mg/dL 1.6 - 2 .6 mg/dL [place] Magnesium [Mass/Vol] 1.4 mg/dL Low 1.6 - 2 .6 mg/dL [place] Magnesium [Mass/Vol] 1.7 mg/dL 1.6 - 2 .6 mg/dL [place] Magnesium [Mass/Vol] 1.7 mg/dL 1.6 - 2 .6 mg/dL [place] Magnesium [Mass/Vol] 1.8 mg/dL 1.6 - 2 .6 mg/dL [place] Otheron 07-31-2020 Interpretation and review of laboratory results Abnormal [place] Interpretation and review of laboratory results Abnormal [place] Interpretation and review of laboratory results Abnormal [place] Interpretation and review of laboratory results Abnormal [place] Interpretation and review of laboratory results Abnormal [place] Interpretation and review of laboratory results Abnormal [place] Interpretation and review of laboratory results Abnormal [place] POC Glucose Fingerstickon Glucose [Mass/Vol] 201 mg/dL High 65 - 105 mg/dL [place] Interpretation and review of laboratory results Abnormal [place] Glucose [Mass/Vol] 162 mg/dL High 65 - 105 mg/dL [place] Interpretation and review of laboratory results Abnormal [place] Glucose [Mass/Vol] 124 mg/dL High 65 - 105 mg/dL [place] Interpretation and review of laboratory results Abnormal [place] Glucose [Mass/Vol] 117 mg/dL High 65 - 105 mg/dL [place] Interpretation and review of laboratory results Abnormal [place] Glucose [Mass/Vol] 137 mg/dL High 65 - 105 mg/dL [place] Interpretation and review of laboratory results Abnormal [place] Glucose [Mass/Vol] 173 mg/dL High 65 - 105 mg/dL [place] Interpretation and review of laboratory results [place] Glucose [Mass/Vol] 266 mg/dL High 65 - 105 mg/dL [place] Interpretation and review of laboratory results Abnormal [place] Glucose [Mass/Vol] 320 mg/dL High 65 - 105 mg/dL [place] Interpretation and review of laboratory results Abnormal [place] Glucose [Mass/Vol] 400 mg/dL High 65 - 105 mg/dL [place] Interpretation and review of laboratory results Abnormal [place] Glucose [Mass/Vol] 157 mg/dL High 65 - 105 mg/dL [place] Interpretation and review of laboratory results Abnormal [place] Glucose [Mass/Vol] 130 mg/dL High 65 - 105 mg/dL [place] Interpretation and review of laboratory results Abnormal [place] Glucose [Mass/Vol] 139 mg/dL High 65 - 105 mg/dL [place] Interpretation and review of laboratory results Abnormal [place] Glucose [Mass/Vol] 156 mg/dL High 65 - 105 mg/dL [place] Interpretation and review of laboratory results Abnormal [place] Glucose [Mass/Vol] 193 mg/dL High 65 - 105 mg/dL [place] Interpretation and review of laboratory results Abnormal [place] Glucose [Mass/Vol] 207 mg/dL High 65 - 105 mg/dL [place] Interpretation and review of laboratory results Abnormal [place] Glucose [Mass/Vol] 211 mg/dL High 65 - 105 mg/dL [place] Interpretation and review of laboratory results Abnormal [place] Glucose [Mass/Vol] 167 mg/dL High 65 - 105 mg/dL [place] Interpretation and review of laboratory results Abnormal [place] Glucose [Mass/Vol] 145 mg/dL High 65 - 105 mg/dL [place] Interpretation and review of laboratory results Abnormal [place] Glucose [Mass/Vol] 156 mg/dL High 65 - 105 mg/dL [place] Interpretation and review of laboratory results Abnormal [place] Glucose [Mass/Vol] 171 mg/dL High 65 - 105 mg/dL [place] Interpretation and review of laboratory results Abnormal [place] Glucose [Mass/Vol] 165 mg/dL High 65 - 105 mg/dL [place] Interpretation and review of laboratory results Abnormal [place] Glucose [Mass/Vol] 144 mg/dL High 65 - 105 mg/dL [place] Interpretation and review of laboratory results Abnormal [place] POCT Glucoseon 07-31-2020 Glucose [Mass/Vol] 372 mg/dL High 74 - 100 mg/dL [place] POTASSIUM (POC)on 07-31-2020 Potassium [Moles/Vol] 3.9 mmol/L 3.5 - 4.5 mmol/L [place] Phosphoruson 07-31-2020 Phosphate [Mass/Vol] 1.9 mg/dL Low 2.6 - 4 .5 mg/dL [place] Phosphate [Mass/Vol] 1.7 mg/dL Low 2.6 - 4 .5 mg/dL [place] Phosphate [Mass/Vol] 1.8 mg/dL Low 2.6 - 4 .5 mg/dL [place] Phosphate [Mass/Vol] 1.5 mg/dL Low 2.6 - 4 .5 mg/dL [place] Phosphate [Mass/Vol] 1.7 mg/dL Low 2.6 - 4 .5 mg/dL [place] Phosphate [Mass/Vol] 1.5 mg/dL Low 2.6 - 4 .5 mg/dL [place] SODIUM (POC)on 07-31-2020 Sodium [Moles/Vol] 136 mmol/L Low 138 - 146 mmol/L [place] Acetaminophen Levelon 2020 Acetaminophen [Mass/Vol] <5 Low 10 - 30 ug/mL [place] Interpretation and review of laboratory results Abnormal [place] Arterial Blood Gas, POCon Cami Test NOT REPORTED [place] aPTT Coag (Bld) [Time] NOT REPORTED [place] FIO2 35.0 [place] Interpretation and review of laboratory results Abnormal [place] Mode NOT REPORTED [place] Negative Base Excess, Art 10 High [place] O2 Device/Flow/% BIPAP [place] Oxygen saturation in Blood 98 % 94 - 98 % [place] POC HCO3 12.9 mmol/L Low 21 - 28 mmol/L [place] POC pCO2 20.8 Low [place] POC pCO2 Temp NOT REPORTED mm Hg [place] POC pH 7.402 [place] POC pH Temp NOT REPORTED [place] POC PO2 98.2 [place] POC pO2 Temp NOT REPORTED mm Hg [place] Positive Base Excess, Art NOT REPORTED [place] Sample Site Arterial Line [place] TCO2 (calc), Art 14 mmol/L Low 22 - 29 mmol/L [place] Cami Test NOT REPORTED [place] aPTT Coag (Bld) [Time] 37.1 s [place] FIO2 40.0 [place] Mode Bi-Level Ventilation [place] Negative Base Excess, Art 16 High [place] O2 Device/Flow/% BIPAP [place] Oxygen saturation in Blood 96 % 94 - 98 % [place] POC HCO3 7.0 mmol/L Critically low 21 - 28 mmol/L [place] POC pCO2 14.0 Low [place] POC pCO2 Temp NOT REPORTED mm Hg [place] POC pH 7.310 Low [place] POC pH Temp NOT REPORTED [place] POC PO2 86.1 [place] POC pO2 Temp NOT REPORTED mm Hg [place] Positive Base Excess, Art NOT REPORTED [place] Sample Site Arterial Line [place] TCO2 (calc), Art 7 mmol/L Low 22 - 29 mmol/L [place] Cami Test NOT REPORTED [place] aPTT Coag (Bld) [Time] 36.3 s [place] FIO2 50.0 [place] Mode Bi-Level Ventilation [place] Negative Base Excess, Art 22 High [place] O2 Device/Flow/% BIPAP [place] Oxygen saturation in Blood 96 % 94 - 98 % [place] POC HCO3 5.2 mmol/L Critically low 21 - 28 mmol/L [place] POC pCO2 16.0 Low [place] POC pCO2 Temp NOT REPORTED mm Hg [place] POC pH 7.123 Critically low [place] POC pH Temp NOT REPORTED [place] POC PO2 109.8 High [place] POC pO2 Temp NOT REPORTED mm Hg [place] Positive Base Excess, Art NOT REPORTED [place] Sample Site Arterial Line [place] TCO2 (calc), Art 6 mmol/L Low 22 - 29 mmol/L [place] Cami Test NOT REPORTED [place] aPTT Coag (Bld) [Time] 36.1 s [place] FIO2 30.0 [place] Mode NOT REPORTED [place] Negative Base Excess, Art 24 High [place] O2 Device/Flow/% Adult Ventilator [place] Oxygen saturation in Blood 89 % Low 94 - 98 % [place] POC HCO3 4.3 mmol/L Critically low 21 - 28 mmol/L [place] POC pCO2 14.4 Low [place] POC pCO2 Temp NOT REPORTED mm Hg [place] POC pH 7.082 Critically low [place] POC pH Temp NOT REPORTED [place] POC PO2 75.9 Low [place] POC pO2 Temp NOT REPORTED mm Hg [place] Positive Base Excess, Art NOT REPORTED [place] Sample Site Arterial Line [place] TCO2 (calc), Art <5 Low 22 - 29 mmol/L [place] Basic Metabolic Panelon 07-02 Anion gap [Moles/Vol] 5 mmol/L Low 9 - 17 mmol/L [place] Bun/Cre Ratio NOT REPORTED [place] Calcium [Mass/Vol] 6.9 mg/dL Low 8.6 - 10. 4 mg/dL [place] Chloride [Moles/Vol] 113 mmol/L High 98 - 10 7 mmol/L [place] CO2 [Moles/Vol] 17 mmol/L Low 20 - 31 mmol/L [place] Creatinine [Mass/Vol] 0.51 mg/dL 0.5 - 0.9 mg/dL [place] GFR >60 >60 mL/min [place] GFR Non- >60 >60 mL/min [place] GFR/1.73 sq M predicted among non-blacks MDRD (S/P/Bld) [Vol rate/Area] NOT REPORTED [place] GFR/1.73 sq M predicted among non-blacks MDRD (S/P/Bld) [Vol rate/Area] [place] Comment on above: Average GFR for 20-2 9 years old: 116 mL/min/1.73sq m Chronic Kidney Disease: <60 mL/min/1.73sq m Kidney failure: <15 mL/min/1.73sq m eGFR calculated using average adult body mass. Additional eGFR calculator available at: http://www.[employer]/multiple_crcl_2012.htm Glucose [Mass/Vol] 175 mg/dL High 70 - 99 mg/dL [place] Potassium [Moles/Vol] 3.4 mmol/L Low 3.7 - 5.3 mmol/L [place] Sodium [Moles/Vol] 135 mmol/L 135 - 144 mmol/L [place] Urea nitrogen [Mass/Vol] 14 mg/dL 6 - 20 mg/d L [place] Anion gap [Moles/Vol] 6 mmol/L Low 9 - 17 mmol/L [place] Bun/Cre Ratio NOT REPORTED [place] Calcium [Mass/Vol] 7.1 mg/dL Low 8.6 - 10. 4 mg/dL [place] Chloride [Moles/Vol] 115 mmol/L High 98 - 10 7 mmol/L [place] CO2 [Moles/Vol] 18 mmol/L Low 20 - 31 mmol/L [place] Creatinine [Mass/Vol] 0.59 mg/dL 0.5 - 0.9 mg/dL [place] GFR >60 >60 mL/min [place] GFR Non- >60 >60 mL/min [place] GFR/1.73 sq M predicted among non-blacks MDRD (S/P/Bld) [Vol rate/Area] NOT REPORTED [place] GFR/1.73 sq M predicted among non-blacks MDRD (S/P/Bld) [Vol rate/Area] [place] Comment on above: Average GFR for 20-2 9 years old: 116 mL/min/1.73sq m Chronic Kidney Disease: <60 mL/min/1.73sq m Kidney failure: <15 mL/min/1.73sq m eGFR calculated using average adult body mass. Additional eGFR calculator available at: http://www.[employer]/multiple_crcl_2012.htm Glucose [Mass/Vol] 113 mg/dL High 70 - 99 mg/dL [place] Potassium [Moles/Vol] 3.2 mmol/L Low 3.7 - 5.3 mmol/L [place] Sodium [Moles/Vol] 139 mmol/L 135 - 144 mmol/L [place] Urea nitrogen [Mass/Vol] 17 mg/dL 6 - 20 mg/d L [place] Anion gap [Moles/Vol] 9 mmol/L 9 - 17 mmol/L [place] Bun/Cre Ratio NOT REPORTED [place] Calcium [Mass/Vol] 7.0 mg/dL Low 8.6 - 10. 4 mg/dL [place] Chloride [Moles/Vol] 114 mmol/L High 98 - 10 7 mmol/L [place] CO2 [Moles/Vol] 17 mmol/L Low 20 - 31 mmol/L [place] Creatinine [Mass/Vol] 0.78 mg/dL 0.5 - 0.9 mg/dL [place] GFR >60 >60 mL/min [place] GFR Non- >60 >60 mL/min [place] GFR/1.73 sq M predicted among non-blacks MDRD (S/P/Bld) [Vol rate/Area] [place] Comment on above: Average GFR for 20-2 9 years old: 116 mL/min/1.73sq m Chronic Kidney Disease: <60 mL/min/1.73sq m Kidney failure: <15 mL/min/1.73sq m eGFR calculated using average adult body mass. Additional eGFR calculator available at: http://www.[employer]/multiple_crcl_2012.htm GFR/1.73 sq M predicted among non-blacks MDRD (S/P/Bld) [Vol rate/Area] NOT REPORTED [place] Glucose [Mass/Vol] 132 mg/dL High 70 - 99 mg/dL [place] Potassium [Moles/Vol] 3.1 mmol/L Low 3.7 - 5.3 mmol/L [place] Sodium [Moles/Vol] 140 mmol/L 135 - 144 mmol/L [place] Urea nitrogen [Mass/Vol] 20 mg/dL 6 - 20 mg/d L [place] Anion gap [Moles/Vol] 9 mmol/L 9 - 17 mmol/L [place] Bun/Cre Ratio NOT REPORTED [place] Calcium [Mass/Vol] 7.1 mg/dL Low 8.6 - 10. 4 mg/dL [place] Chloride [Moles/Vol] 113 mmol/L High 98 - 10 7 mmol/L [place] CO2 [Moles/Vol] 17 mmol/L Low 20 - 31 mmol/L [place] Creatinine [Mass/Vol] 0.81 mg/dL 0.5 - 0.9 mg/dL [place] GFR >60 >60 mL/min [place] GFR Non- >60 >60 mL/min [place] GFR/1.73 sq M predicted among non-blacks MDRD (S/P/Bld) [Vol rate/Area] [place] Comment on above: Average GFR for 20-2 9 years old: 116 mL/min/1.73sq m Chronic Kidney Disease: <60 mL/min/1.73sq m Kidney failure: <15 mL/min/1.73sq m eGFR calculated using average adult body mass. Additional eGFR calculator available at: http://www.Revisu/multiple_crcl_2012.htm GFR/1.73 sq M predicted among non-blacks MDRD (S/P/Bld) [Vol rate/Area] NOT REPORTED [place] Glucose [Mass/Vol] 238 mg/dL High 70 - 99 mg/dL [place] Potassium [Moles/Vol] 2.4 mmol/L Critically low 3.7 - 5.3 mmol/L [place] Sodium [Moles/Vol] 139 mmol/L 135 - 144 mmol/L [place] Urea nitrogen [Mass/Vol] 23 mg/dL High 6 - 20 mg/d L [place] Anion gap [Moles/Vol] 23 mmol/L High 9 - 17 mmol/L [place] Bun/Cre Ratio NOT REPORTED [place] Calcium [Mass/Vol] 7.2 mg/dL Low 8.6 - 10. 4 mg/dL [place] Chloride [Moles/Vol] 111 mmol/L High 98 - 10 7 mmol/L [place] CO2 [Moles/Vol] 8 mmol/L Critically low 20 - 31 mmol/L [place] Creatinine [Mass/Vol] 1.08 mg/dL High 0.5 - 0.9 mg/dL [place] GFR >60 >60 mL/min [place] GFR Non- >60 >60 mL/min [place] GFR/1.73 sq M predicted among non-blacks MDRD (S/P/Bld) [Vol rate/Area] [place] Comment on above: Average GFR for 20-2 9 years old: 116 mL/min/1.73sq m Chronic Kidney Disease: <60 mL/min/1.73sq m Kidney failure: <15 mL/min/1.73sq m eGFR calculated using average adult body mass. Additional eGFR calculator available at: http://www.[employer]/multiple_crcl_2012.htm GFR/1.73 sq M predicted among non-blacks MDRD (S/P/Bld) [Vol rate/Area] NOT REPORTED [place] Glucose [Mass/Vol] 322 mg/dL High 70 - 99 mg/dL [place] Potassium [Moles/Vol] 3.8 mmol/L 3.7 - 5.3 mmol/L [place] Sodium [Moles/Vol] 142 mmol/L 135 - 144 mmol/L [place] Urea nitrogen [Mass/Vol] 28 mg/dL High 6 - 20 mg/d L [place] Anion gap [Moles/Vol] Unable to calculat e anion gap due to CO2 less than 6. 9 - 17 mmol/L [place] Bun/Cre Ratio NOT REPORTED [place] Calcium [Mass/Vol] 6.9 mg/dL Low 8.6 - 10. 4 mg/dL [place] Chloride [Moles/Vol] 109 mmol/L High 98 - 10 7 mmol/L [place] CO2 [Moles/Vol] mmol/L Critically low 20 - 31 mmol/L [place] Creatinine [Mass/Vol] 0.89 mg/dL 0.5 - 0.9 mg/dL [place] GFR >60 >60 mL/min [place] GFR Non- >60 >60 mL/min [place] GFR/1.73 sq M predicted among non-blacks MDRD (S/P/Bld) [Vol rate/Area] NOT REPORTED [place] GFR/1.73 sq M predicted among non-blacks MDRD (S/P/Bld) [Vol rate/Area] [place] Comment on above: Average GFR for 20-2 9 years old: 116 mL/min/1.73sq m Chronic Kidney Disease: <60 mL/min/1.73sq m Kidney failure: <15 mL/min/1.73sq m eGFR calculated using average adult body mass. Additional eGFR calculator available at: http://www.[employer]/multiple_crcl_2012.htm Glucose [Mass/Vol] 275 mg/dL High 70 - 99 mg/dL [place] Interpretation and review of laboratory results Abnormal [place] Potassium [Moles/Vol] 3.4 mmol/L Low 3.7 - 5.3 mmol/L [place] Sodium [Moles/Vol] 139 mmol/L 135 - 144 mmol/L [place] Urea nitrogen [Mass/Vol] 29 mg/dL High 6 - 20 mg/d L [place] CBC WITH AUTO DIFFERENTIALon 07-30-2020 Basophils (Bld) [#/Vol] 0.00 10*3/uL [place] Basophils/100 WBC (Bld) 0 % 0 - 2 % [place] Differential Type NOT REPORTED [place] Eosinophils (Bld) [#/Vol] 0.00 10*3/uL [place] Eosinophils/100 WBC (Bld) 0 % Low 1 - 4 % [place] Erythrocyte distribution width (RBC) [Ratio] 13.2 % 11.8 - 14.4 % [place] Hematocrit (Bld) [Volume fraction] 38.1 % 36.3 - 47.1 % [place] Hemoglobin (Bld) [Mass/Vol] 12.9 g/dL 11.9 - 15.1 g/dL [place] Immature granulocytes (Bld) [#/Vol] 2 % High 0 [place] Immature granulocytes (Bld) [#/Vol] 0.28 10*3/uL [place] Interpretation and review of laboratory results Abnormal [place] Lymphocytes (Bld) [#/Vol] 0.70 10*3/uL [place] Lymphocytes/100 WBC (Bld) 5 % Low 24 - 43 % [place] MCH (RBC) [Entitic mass] 26.2 pg 25. 2 - 33.5 pg [place] MCHC (RBC) [Mass/Vol] 33.9 g/dL 28.4 - 34.8 g/dL [place] MCV (RBC) [Entitic vol] 77.3 fL Low 82.6 - 102.9 fL [place] Monocytes (Bld) [#/Vol] 0.56 10*3/uL [place] Monocytes/100 WBC (Bld) 4 % 3 - 12 % [place] Morphology Calvin (Bld) [Interp] MICROCYTOSIS PRESENT [place] Morphology Calvin (Bld) [Interp] ANISOCYTOSIS PRESENT [place] Platelet mean volume (Bld) [Entitic vol] 9.8 fL 8.1 - 13.5 fL [place] Platelets (Bld) [#/Vol] 228 10*3/uL [place] Platelets (Bld) [#/Vol] NOT REPORTED [place] RBC (Bld) [#/Vol] 4.93 10*6/uL 3.95 - 5.1 1 m/uL [place] RBC morphology finding Nom (Bld) NOT REPORTED [place] Segmented neutrophils/100 WBC (Bld) 89 % High 36 - 65 % [place] Segs Absolute 12.36 High [place] WBC (Bld) [#/Vol] 0.0 10*3/uL 0.0 per 10 0 WBC [place] WBC (Bld) [#/Vol] 13.9 10*3/uL [place] WBC Morphology NOT REPORTED [place] Ethanolon 07-30-2020 Ethanol [Mass/Vol] mg/dL <10 mg/dL [place] Ethanol percent <0.010 <0.010 % [place] Hepatic Function Panelon Albumin [Mass/Vol] 3 g/dL Low 3.5 - 5.2 g/dL [place] Albumin/Globulin [Mass ratio] 1.3 {ratio} [place] ALP [Catalytic activity/Vol] 103 U/L 35 - 104 U/L [place] ALT [Catalytic activity/Vol] 16 U/L 5 - 33 U/L [place] AST [Catalytic activity/Vol] 39 U/L High <32 [place] Bilirubin Ql (U) <0.10 Low 0.3 - 1.2 mg/dL [place] Bilirubin, Indirect CANNOT BE CALCULATED 0 - 1 mg/dL [place] Bilirubin.direct [Mass/Vol] mg/dL <0.31 mg/dL [place] Globulin (S) [Mass/Vol] NOT REPORTED 1.5 - 3.8 g/dL [place] Interpretation and review of laboratory results Abnormal [place] Protein [Mass/Vol] 5.3 g/dL Low 6.4 - 8.3 g/dL [place] Lactic Acid, POCon POC Lactic Acid 0.87 mmol/L 0.56 - 1.39 mmol/L [place] POC Lactic Acid 0.80 mmol/L 0.56 - 1.39 mmol/L [place] POC Lactic Acid 0.79 mmol/L 0.56 - 1.39 mmol/L [place] Lipaseon 07-30-2020 Lipase [Catalytic activity/Vol] 24 U/L 13 - 60 U/L [place] MRSA by PCRon 07-30-2020 Direct Exam POSITIVE: MRSA DNA detected by nucleic acid amplification. Results should be used as an adjunct to nosocomial control efforts to identify patients needing enhanced precautions. The test is not intended to identify patients with staphylococcal infections. Results should not be used to guide or monitor treatment for MRSA infections. Abnormal [place] Interpretation and review of laboratory results Abnormal [place] Special Requests NOT REPORTED [place] Specimen Description .NASAL [place] Magnesiumon 07-30-2020 Magnesium [Mass/Vol] 1.6 mg/dL 1.6 - 2 .6 mg/dL [place] Magnesium [Mass/Vol] 1.8 mg/dL 1.6 - 2 .6 mg/dL [place] Magnesium [Mass/Vol] 2.0 mg/dL 1.6 - 2 .6 mg/dL [place] Magnesium [Mass/Vol] 2.0 mg/dL 1.6 - 2 .6 mg/dL [place] Magnesium [Mass/Vol] 1.6 mg/dL 1.6 - 2 .6 mg/dL [place] Magnesium [Mass/Vol] 1.6 mg/dL 1.6 - 2 .6 mg/dL [place] Microscopic Urinalysison Amorphous, UA 1+ Abnormal None [place] Bacteria, UA NOT REPORTED None [place] Casts UA HYALINE [place] Casts UA 0 TO 2 [place] Crystals, UA NOT REPORTED None /HPF [place] Epithelial Cells UA 5 TO 10 [place] Interpretation and review of laboratory results Abnormal [place] Mucus, UA NOT REPORTED None [place] Other Observations UA NOT REPORTED NOT REQ. [place] RBC (U) [#/Vol] 0 TO 2 [place] Renal Epithelial, UA NOT REPORTED 0 /HPF [place] Trichomonas, UA NOT REPORTED None [place] WBC, UA 2 TO 5 [place] Yeast, UA NOT REPORTED None [place] - [place] Otheron 07-30-2020 Interpretation and review of laboratory results Abnormal [place] Interpretation and review of laboratory results Abnormal [place] Interpretation and review of laboratory results Abnormal [place] Interpretation and review of laboratory results Abnormal [place] Interpretation and review of laboratory results Abnormal [place] Interpretation and review of laboratory results Abnormal [place] Interpretation and review of laboratory results Abnormal [place] Interpretation and review of laboratory results Abnormal [place] POC Glucose Fingerstickon Glucose [Mass/Vol] 148 mg/dL High 65 - 105 mg/dL [place] Interpretation and review of laboratory results Abnormal [place] Glucose [Mass/Vol] 170 mg/dL High 65 - 105 mg/dL [place] Interpretation and review of laboratory results Abnormal [place] Glucose [Mass/Vol] 156 mg/dL High 65 - 105 mg/dL [place] Interpretation and review of laboratory results Abnormal [place] Glucose [Mass/Vol] 140 mg/dL High 65 - 105 mg/dL [place] Interpretation and review of laboratory results Abnormal [place] Glucose [Mass/Vol] 109 mg/dL High 65 - 105 mg/dL [place] Interpretation and review of laboratory results Abnormal [place] Glucose [Mass/Vol] 112 mg/dL High 65 - 105 mg/dL [place] Interpretation and review of laboratory results Abnormal [place] Glucose [Mass/Vol] 111 mg/dL High 65 - 105 mg/dL [place] Interpretation and review of laboratory results Abnormal [place] Glucose [Mass/Vol] 130 mg/dL High 65 - 105 mg/dL [place] Interpretation and review of laboratory results Abnormal [place] Glucose [Mass/Vol] 143 mg/dL High 65 - 105 mg/dL [place] Interpretation and review of laboratory results Abnormal [place] Glucose [Mass/Vol] 126 mg/dL High 65 - 105 mg/dL [place] Interpretation and review of laboratory results Abnormal [place] Glucose [Mass/Vol] 126 mg/dL High 65 - 105 mg/dL [place] Interpretation and review of laboratory results Abnormal [place] Glucose [Mass/Vol] 174 mg/dL High 65 - 105 mg/dL [place] Interpretation and review of laboratory results Abnormal [place] Glucose [Mass/Vol] 214 mg/dL High 65 - 105 mg/dL [place] Interpretation and review of laboratory results Abnormal [place] Glucose [Mass/Vol] 214 mg/dL High 65 - 105 mg/dL [place] Interpretation and review of laboratory results Abnormal [place] Glucose [Mass/Vol] 252 mg/dL High 65 - 105 mg/dL [place] Interpretation and review of laboratory results Abnormal [place] Glucose [Mass/Vol] 281 mg/dL High 65 - 105 mg/dL [place] Interpretation and review of laboratory results Abnormal [place] Glucose [Mass/Vol] 291 mg/dL High 65 - 105 mg/dL [place] Interpretation and review of laboratory results Abnormal [place] Glucose [Mass/Vol] 283 mg/dL High 65 - 105 mg/dL [place] Interpretation and review of laboratory results Abnormal [place] Glucose [Mass/Vol] 275 mg/dL High 65 - 105 mg/dL [place] Interpretation and review of laboratory results Abnormal [place] Glucose [Mass/Vol] 264 mg/dL High 65 - 105 mg/dL [place] Interpretation and review of laboratory results Abnormal [place] Glucose [Mass/Vol] 270 mg/dL High 65 - 105 mg/dL [place] Interpretation and review of laboratory results Abnormal [place] Glucose [Mass/Vol] 244 mg/dL High 65 - 105 mg/dL [place] Interpretation and review of laboratory results Abnormal [place] Glucose [Mass/Vol] 226 mg/dL High 65 - 105 mg/dL [place] Interpretation and review of laboratory results Abnormal [place] Glucose [Mass/Vol] 272 mg/dL High 65 - 105 mg/dL [place] Interpretation and review of laboratory results Abnormal [place] Glucose [Mass/Vol] 290 mg/dL High 65 - 105 mg/dL [place] Interpretation and review of laboratory results Abnormal [place] POCT Glucoseon 07-30-2020 Glucose [Mass/Vol] 296 mg/dL High 74 - 100 mg/dL [place] Glucose [Mass/Vol] 284 mg/dL High 74 - 100 mg/dL [place] Glucose [Mass/Vol] 325 mg/dL High 74 - 100 mg/dL [place] POTASSIUMon 07-30-2020 Potassium [Moles/Vol] 4.4 mmol/L 3.7 - 5.3 mmol/L [place] Comment on above: SPECIMEN SLIGHTLY HE MOLYZED, RESULTS MAY BE ADVERSELY AFFECTED. Potassium [Moles/Vol] 3.8 mmol/L 3.7 - 5.3 mmol/L [place] Phosphoruson 07-30-2020 Phosphate [Mass/Vol] 1.7 mg/dL Low 2.6 - 4 .5 mg/dL [place] Phosphate [Mass/Vol] 1.7 mg/dL Low 2.6 - 4 .5 mg/dL [place] Phosphate [Mass/Vol] 1.7 mg/dL Low 2.6 - 4 .5 mg/dL [place] Phosphate [Mass/Vol] 0.6 mg/dL Critically low 2.6 - 4.5 mg/dL [place] Phosphate [Mass/Vol] 0.5 mg/dL Critically low 2.6 - 4.5 mg/dL [place] Interpretation and review of laboratory results Abnormal [place] Phosphate [Mass/Vol] 1.1 mg/dL Low 2.6 - 4 .5 mg/dL [place] SPECIMEN REJECTIONon 021 Ordered Test [id number] [place] Reason for Rejection Unable to perform testing: Specimen quantity not sufficient. [place] Specimen source Nom (Unsp spec) .BLOOD [place] - NOT REPORTED [place] Salicylateon 07-30-2020 Interpretation and review of laboratory results Abnormal [place] Salicylate Lvl 1 mg/dL Low 3 - 10 mg/dL [place] TOXIC TRICYCLIC SC,Bon 07-30 Toxic Tricyclic Sc,Blood Negative NEGATIVE [place] TSH with Reflexon 07-30-2020 TSH Qn 0.35 m[IU]/L [place] Urinalysis Reflex to Culture on 07-30-2020 Bilirubin Urine Negative NEGATIVE [place] Color, UA YELLOW YELLOW [place] Glucose, Ur 3+ Abnormal NEGATIVE [place] Interpretation and review of laboratory results Abnormal [place] Ketones Ql (U) LARGE Abnormal NEGATIVE [place] Leukocyte esterase Test strip Ql (U) TRACE Abnormal NEGATIVE [place] Nitrite, Urine Negative NEGATIVE [place] pH, UA 5.0 [place] Protein (U) [Mass/Vol] 2+ Abnormal NEGATIVE [place] Specific [place], UA 1.019 [place] Turbidity UA CLOUDY Abnormal CLEAR [place] Urinalysis Comments NOT REPORTED [place] Urine Hgb MODERATE Abnormal NEGATIVE [place] Urobilinogen, Urine Normal Normal [place] Urine Drug Screenon 07-30-19 21 Amphetamine Screen, Ur Negative NEGATIVE [place] Comment on above: (Positive cutoff 1000 ng/mL) Barbiturate Screen, Ur Negative NEGATIVE [place] Comment on above: (Positive cutoff 200 ng/mL) Benzodiazepine Screen, Urine Negative NEGATIVE [place] Comment on above: (Positive cutoff 200 ng/mL) Buprenorphine Urine NOT REPORTED [place] Cannabinoid Scrn, Ur Negative NEGATIVE [place] Comment on above: (Positive cutoff 50 ng/mL) Cocaine Metabolite, Urine Negative NEGATIVE [place] Comment on above: (Positive cutoff 300 ng/mL) MDMA, Urine NOT REPORTED NEGATIVE [place] Methadone Screen, Urine Negative NEGATIVE [place] Comment on above: (Positive cutoff 300 ng/mL) Methamphetamine, Urine NOT REPORTED [place]GAT[place] Opiates, Urine Negative NEGATIVE [place] Comment on above: (Positive cutoff 300 ng/mL) Oxycodone Screen, Ur Negative NEGATIVE [place] Comment on above: (Positive cutoff 100 ng/mL) Phencyclidine, Urine Negative NEGATIVE [place], [place] Comment on above: (Positive cutoff 25 ng/mL) Propoxyphene, Urine NOT REPORTED [place] Test Information Assay provides medical screening only. The absence of expected drug(s) and/or metabolite(s) may indicate diluted or adulterated urine, limitations of testing or timing of collection. [place], [place] Comment on above: Testing for legal pu rposes should be confirmed by another method. To request confirmation of test result, please call the lab within 7 days of sample submission. Tricyclic Antidepressants, Urine NOT REPORTED [facility]IVE [facility] 21 Wong, Mhpn Incoming Radiant Results From [employer] [facility] - 07/30/2020 2:54 AM EST EXAMINATION: ONE [...] with the tip in the distal SVC. [place] EXAMINATION: ONE XRAY VIEW OF THE [...] line with tip in the distal SVC. [facility] ANTHONY Scattered bilateral infiltrates most pronounced in the right lower lobe consistent with pneumonia. Right internal jugular line with the tip in the distal SVC. [facility] [place] ACETAMINOPHENon 07-29-2020 Acetaminophen [Mass/Vol] <10.0 Critically low 10.1-30 .0 [facility] Comment on above: Performed By: #### D RUGRPD #### [facility] [address] [address] Alfie Mederos ACETONE SERUMon 07-29-2020 ACETONE SMALL Abnormal NEGATIVE [facility] Comment on above: Performed By: #### A CETON #### [facility] [address] [place], [place] [address] Alfie Mederos BLOOD GAS, VENOUSon 07-29-19 21 Cami Test NOT REPORTED [facility] aPTT Coag (Bld) [Time] 37.0 s Me [facility] Carboxyhemoglobin 0.6 % 0 - 5 % [facility] Comment on above: Reference Range: Non-Smokers 0-2% Average Smoker 2-4% Heavy Smoker <10% FIO2 ROOM AIR [facility] HCO3, Venous 4.2 mmol/L Low 24 - 30 mmol/L [facility] Interpretation and review of laboratory results Abnormal [facility] Methemoglobin NOT REPORTED 0 - 1.5 % [facility] Mode NOT REPORTED [facility] Negative Base Excess, Denis NOT REPORTED 0 - 2 mmol/L [facility] NOTIFICATION NOT REPORTED [facility] NOTIFICATION TIME NOT REPORTED [facility] O2 Device/Flow/% NOT REPORTED [facility] Oxygen saturation in Blood 69.6 % 60 - 85 % [facility] Oxyhemoglobin NOT REPORTED 95 - 98 % [facility] pCO2, Denis 24.6 Low [facility] pCO2, Denis, Temp Adj NOT REPORTED [facility] Peep/Cpap NOT REPORTED [facility] pH, Denis 6.864 Critically low [facility] pH, Denis, Temp Adj NOT REPORTED [facility] pO2, Denis 39.3 [facility] pO2, Denis, Temp Adj NOT REPORTED [facility] [employer] [facility] Positive Base Excess, Denis NOT REPORTED 0 - 2 mmol/L [facility] PSV NOT REPORTED [facility] Pt. Position NOT REPORTED [facility] Sample Site NOT REPORTED [facility] Set Rate NOT REPORTED [facility] Text for Respiratory NOT REPORTED [facility] Total Hb NOT REPORTED 12 - 16 g/dl [facility] Total Rate NOT REPORTED [facility] VT NOT REPORTED [facility] BLOOD GASES BTYon 07-29-2020 02 MODE ROOM AIR Normal [facility] Comment on above: Performed By: #### A BG #### [facility] [address] [address] Alfie Rosa M ALLENS TEST Positive Normal [facility] Comment on above: Performed By: #### A BG #### [facility] [address] [address] Alfie Rosa M Base excess Calc (Bld) [Moles/Vol] -26.4 mmol/L Critically low -2.0-2.0 [facility] Comment on above: Performed By: #### A BG #### [facility] [address] [id number] Alfie Rosa M BIPAP PRESSURE Normal [facility] Comment on above: Performed By: #### A BG #### [facility] [address] [place] [address] Alfie Rosa M CO2 [Moles/Vol] 3.7 mmol/L Critically low 23.0-28.0 [facility] Comment on above: Performed By: #### A BG #### [facility] [address] [id number] Alfie Rosa M CPAP [facility] Comment on above: Performed By: #### A BG #### [facility] [address] [address] Alfie Rosa M FIO2 Normal [facility] Comment on above: Performed By: #### A BG #### [facility] [address] [address] Alfie Rosa M HCO3 (Bld) [Moles/Vol] 3.3 mmol/L Critically low 22.0-26.0 [facility] Comment on above: Performed By: #### A BG #### [facility] [address] [place] [address] Aflie Rosa M LPM [facility] Comment on above: Performed By: #### A BG #### [facility] [address] [id number] Alfie Rosa M MINUTE VOLUME Normal [facility] Comment on above: Performed By: #### A BG #### [facility] [address] [address] Alfie Rosa M Oxygen (Bld) [Partial pressure] 84.7 mm[Hg] Normal 80.0-100.0 [facility] Comment on above: Performed By: #### A BG #### [facility] [address] [address] Alfie Rosa M Oxygen saturation in Blood 94.1 % Critically low 95.0-100.0 [facility] Comment on above: Performed By: #### A BG #### [facility] [address] [address] Alfie Rosa M PCO2 13.9 mmHg Critically low 35.0-45.0 [facility] Comment on above: Performed By: #### A BG #### [facility] [address] [place] [address] Alfie Rosa M PEEP Normal [facility] Comment on above: Performed By: #### A BG #### [facility] [address] [address] Alfie Rosa M pH (Bld) 6.991 [pH] Critically low 7.350-7.450 [facility] Comment on above: Performed By: #### A BG #### [facility] [address] [place] [address] Alfie Rosa M PIP Normal [facility] Comment on above: Performed By: #### A BG #### [facility] [address] [place] [address] Alfie Rosa M PS Normal [facility] Comment on above: Performed By: #### A BG #### [facility] [address] [place] [address] Alfie Rosa M PUNCTURE SITE RR Normal [facility] Comment on above: Performed By: #### A BG #### [facility] [address] [place] [address] Alfie Rosa M RATE Normal [facility] Comment on above: Performed By: #### A BG #### [facility] [address] [place] [address] Alfie Rosa M VENT MODE Normal [facility] Comment on above: Performed By: #### A BG #### [facility] [address] [place], [place] [address] Alfie Mederos [place] Normal [facility] Comment on above: Performed By: #### A BG #### [facility] [address] [place], [place] [address] Alfie Mederos Basic Metabolic Panelon 3 Anion gap [Moles/Vol] Unable to calculat e anion gap due to CO2 less than 6. 9 - 17 mmol/L [place] Bun/Cre Ratio NOT REPORTED [place] Calcium [Mass/Vol] 7.0 mg/dL Low 8.6 - 10. 4 mg/dL [place] Chloride [Moles/Vol] 109 mmol/L High 98 - 10 7 mmol/L [place] CO2 [Moles/Vol] mmol/L Critically low 20 - 31 mmol/L [place] Creatinine [Mass/Vol] 0.98 mg/dL High 0.5 - 0.9 mg/dL [place] GFR >60 >60 mL/min [place] GFR Non- >60 >60 mL/min [place] GFR/1.73 sq M predicted among non-blacks MDRD (S/P/Bld) [Vol rate/Area] NOT REPORTED [place] GFR/1.73 sq M predicted among non-blacks MDRD (S/P/Bld) [Vol rate/Area] [place] Comment on above: Average GFR for 20-2 9 years old: 116 mL/min/1.73sq m Chronic Kidney Disease: <60 mL/min/1.73sq m Kidney failure: <15 mL/min/1.73sq m eGFR calculated using average adult body mass. Additional eGFR calculator available at: http://www.[employer]isu/multiple_crcl_2012.htm Glucose [Mass/Vol] 360 mg/dL High 70 - 99 mg/dL [place] Interpretation and review of laboratory results Abnormal [place] Potassium [Moles/Vol] 4.1 mmol/L 3.7 - 5.3 mmol/L [place] Sodium [Moles/Vol] 136 mmol/L 135 - 144 mmol/L [place] Urea nitrogen [Mass/Vol] 30 mg/dL High 6 - 20 mg/d L [place] Anion gap [Moles/Vol] Unable to calculat e anion gap due to CO2 less than 6. 9 - 17 mmol/L [place] Bun/Cre Ratio NOT REPORTED [place] Calcium [Mass/Vol] 6.9 mg/dL Low 8.6 - 10. 4 mg/dL [place] Chloride [Moles/Vol] 110 mmol/L High 98 - 10 7 mmol/L [place] CO2 [Moles/Vol] mmol/L Critically low 20 - 31 mmol/L [place] Creatinine [Mass/Vol] 0.95 mg/dL High 0.5 - 0.9 mg/dL [place] GFR >60 >60 mL/min [place] GFR Non- >60 >60 mL/min [place] GFR/1.73 sq M predicted among non-blacks MDRD (S/P/Bld) [Vol rate/Area] [place] Comment on above: Average GFR for 20-2 9 years old: 116 mL/min/1.73sq m Chronic Kidney Disease: <60 mL/min/1.73sq m Kidney failure: <15 mL/min/1.73sq m eGFR calculated using average adult body mass. Additional eGFR calculator available at: http://www.[employer].Cotopaxi/multiple_crcl_2012.htm GFR/1.73 sq M predicted among non-blacks MDRD (S/P/Bld) [Vol rate/Area] NOT REPORTED [place] Glucose [Mass/Vol] 368 mg/dL High 70 - 99 mg/dL [place] Interpretation and review of laboratory results Abnormal [place] Potassium [Moles/Vol] 4.0 mmol/L 3.7 - 5.3 mmol/L [place] Sodium [Moles/Vol] 137 mmol/L 135 - 144 mmol/L [place] Urea nitrogen [Mass/Vol] 30 mg/dL High 6 - 20 mg/d L [place] CBC W MANUAL DIFFon 07-29-19 21 ATYPICAL LYMPH # 0.33 103/ul Normal [facility] Comment on above: Performed By: #### Colt MERRILL, PERSMR #### [facility] [address] [address] Alfie Rosa M ATYPICAL LYMPH % 1 % Normal [facility] Comment on above: Performed By: #### Colt MERRILL, PERSMR #### [facility] [address] [address] Alfie Rosa M BAND # 3.0 103/ul Critically high 0.0-0.3 [facility] Comment on above: Performed By: #### Colt MERRILL, PERSMR #### [facility] [address] [address] Alfie Rosa M BAND % 9 % Critically high 0-5 [facility] Comment on above: Performed By: #### Colt MERRILL PERSMR #### [facility] [address] [address] Alfie Rosa M BASOM # 0.00 103/ul Normal 0.00-0.10 [facility] Comment on above: Performed By: #### Colt MERRILL PERSMR #### [facility] [address] [address] Alfie Rosa M BASOM % 0.0 % Critically low 0.2-2.0 [facility] Comment on above: Performed By: #### Colt MERRILL PERSMR #### [facility] [address] [address] Alfie Rosa M BLAST # Normal [facility] Comment on above: Performed By: #### Colt MERRILL, PERSMR #### [facility] [address] [address] Alfie Rosa M BLAST % Normal [facility] Comment on above: Performed By: #### Colt MERRILL PERSMR #### [facility] [address] [id number] Alfie Rosa M CORRECTED WBC Normal 4.0-11.0 [facility] Comment on above: Performed By: #### Colt MERRILL, PERSMR #### [facility] [address] [place], [place] [address] Alfie Rosa M Eosinophils (Bld) [#/Vol] 0.00 103/ul Normal 0.00-0.70 [facility] Comment on above: Performed By: #### Colt MERRILL, PERSMR #### [facility] [address] [place], [place] [id number] Alfie Rosa M Eosinophils/100 WBC (Bld) 0.0 % Critically low 0.9-7.0 [facility] Comment on above: Performed By: #### Colt MERRILL, PERSMR #### [facility] [address] [place], [place] [phone] Alfie Rosa M Erythrocyte distribution width (RBC) [Ratio] 13.2 % Normal 11.0-15.0 [facility] Comment on above: Performed By: #### Colt MERRILL PERSMR #### [facility] [address] [place], [place] [phone] Alfie Rosa M Hematocrit (Bld) [Volume fraction] 48.3 % Critically high 36.0-48.0 [facility] Comment on above: Performed By: #### Colt MERRILL, PERSMR #### [facility] [address] [place], [place] [phone] Alfie Rosa M Hemoglobin (Bld) [Mass/Vol] 15.2 g/dl Normal 12.0-16.0 [facility] Comment on above: Performed By: #### Colt MERRILL, PERSMR #### [facility] [address] [place], [place] [phone] Alfie Rosa M LYMPHM # 3.00 103/ul Normal 1.20-3.80 [facility] Comment on above: Performed By: #### Colt MERRILL, PERSMR #### [facility] [address] [place], [place] [phone] Alfie Rosa M LYMPHM% 9.0 % Critically low 20.5-60.0 [facility] Comment on above: Performed By: #### Colt MERRILL, PERSMR #### [facility] [address] [phone] Alfiejamie Mederos MCH (RBC) [Entitic mass] 26.8 pg Normal 26.7-34.0 [facility] Comment on above: Performed By: #### C DESIRAE, PERSMR #### [facility] [address] [place] [address] Alfiejamie Mederos MCHC (RBC) [Mass/Vol] 31.5 g/dl Normal 29.9-35.2 [facility] Comment on above: Performed By: #### C DESIREA, PERSMR #### [facility] [address] [place] [address] Alfie Mederos MCV (RBC) [Entitic vol] 85.0 fL Normal 81.0-99.0 [facility] Comment on above: Performed By: #### Colt MERRILL, PERSMR #### [facility] [address] [place] [address] Alfie Rosa M METAMYELOCYTE # 1.0 103/ul Normal [facility] Comment on above: Performed By: #### Colt MERRILL, PERSMR #### [facility] [address] [place] [address] Alfie Rosa M METAMYELOCYTE % 3 % Normal [facility] Comment on above: Performed By: #### Colt MERRILL, PERSMR #### [facility] [address] [place] [address] Alfie Rosa M MONOM# 1.33 103/ul Critically high 0.30-0.80 [facility] Comment on above: Performed By: #### Colt MERRILL, PERSMR #### [facility] [address] [place] [address] Alfie Rosa M MONOM% 4.0 % Normal 1.7-12.0 [facility] Comment on above: Performed By: #### Colt MERRILL, PERSMR #### [facility] [address] [place] [address] Alfie Rosa M MYELOCYTE # 0.3 103/ul Normal [facility] Comment on above: Performed By: #### Colt MERRILL, PERSMR #### [facility] [address] [address] Alfie Rosa M MYELOCYTE % 1 % Normal [facility] Comment on above: Performed By: #### Colt MERRILL, PERSMR #### [facility] [address] [place], [place] [phone] Alfie Rosa M NRBC Normal [facility] Comment on above: Performed By: #### Colt MERRILL, PERSMR #### [facility] [address] [place] [address] Alfie Rosa M PATH REVIEW INDICATED Normal [facility] Comment on above: Performed By: #### Colt MERRILL PERSMR #### [facility] [address] [place] [address] Alfie Rosa M Platelet mean volume (Bld) [Entitic vol] 10.1 fL Normal 9.5-13.5 [facility] Comment on above: Performed By: #### Colt MERRILL PERSMR #### [facility] [address] [place] [address] Alfie Rosa M Platelets (Bld) [#/Vol] 384 103/ul Normal 150-450 [facility] Comment on above: Performed By: #### Colt MERRILL, PERSMR #### [facility] [address] [place] [address] Alfie Rosa M RBC (Bld) [#/Vol] 5.68 106/ul Critically high 4.20-5.40 [facility] Comment on above: Result Comment: crit ical value repeated and verified for wbc Performed By: #### Colt MERRILL, PERSMR #### [facility] [address] [place] [address] Alfie Rosa M SEG # 24.31 103/ul Critically high 1.40-6.50 [facility] Comment on above: Performed By: #### Colt MERRILL, PERSMR #### [facility] [address] [place], [place] [phone] Alfie Rosa M Segmented neutrophils/100 WBC (Bld) 73.0 % Normal 43.0-75.0 [facility] Comment on above: Performed By: #### C SAAD MERRILL #### [facility] [address] [place], [place] [address] Alfie Mederos WBC (Bld) [#/Vol] 33.3 103/ul Critically high 4.0-11.0 [facility] Comment on above: Result Comment: crit ical toya Performed By: #### C SAAD MERRILL #### [facility] [address] [place], [place] [address] Alfie Mederos CBC auto differentialon 07-02 Basophils (Bld) [#/Vol] 0.00 10*3/uL [place] Basophils/100 WBC (Bld) 0 % 0 - 2 % M [place] Differential Type NOT REPORTED [place] Eosinophils (Bld) [#/Vol] 0.00 10*3/uL [place] Eosinophils/100 WBC (Bld) 0 % Low 1 - 4 % [place] Erythrocyte distribution width (RBC) [Ratio] 13.0 % 11.8 - 14.4 % [place] Hematocrit (Bld) [Volume fraction] 45.0 % 36.3 - 47.1 % [place] Hemoglobin (Bld) [Mass/Vol] 14.0 g/dL 11.9 - 15.1 g/dL [place] Immature granulocytes (Bld) [#/Vol] 0.86 10*3/uL [place] Immature granulocytes (Bld) [#/Vol] 3 % High 0 [place] Interpretation and review of laboratory results Abnormal [place] Lymphocytes (Bld) [#/Vol] 1.43 10*3/uL [place] Lymphocytes/100 WBC (Bld) 5 % Low 24 - 44 % [place] MCH (RBC) [Entitic mass] 26.3 pg 25. 2 - 33.5 pg [place] MCHC (RBC) [Mass/Vol] 31.1 g/dL 28.4 - 34.8 g/dL [place] MCV (RBC) [Entitic vol] 84.6 fL 82.6 - 102.9 fL [place] Monocytes (Bld) [#/Vol] 1.14 10*3/uL [place] Monocytes/100 WBC (Bld) 4 % 1 - 7 % [place] Morphology Calvin (Bld) [Interp] Normal [place] Platelet mean volume (Bld) [Entitic vol] 9.9 fL 8.1 - 13.5 fL [place] Platelets (Bld) [#/Vol] 346 10*3/uL [place] Platelets (Bld) [#/Vol] NOT REPORTED [place] RBC (Bld) [#/Vol] 5.32 10*6/uL High 3.95 - 5.1 1 m/uL [place] RBC morphology finding Nom (Bld) NOT REPORTED [place] Segmented neutrophils/100 WBC (Bld) 88 % High 36 - 66 % [place] Segs Absolute 25.07 High [place] WBC (Bld) [#/Vol] 0.0 10*3/uL 0.0 per 10 0 WBC [place] WBC (Bld) [#/Vol] 28.5 10*3/uL [place] WBC Morphology NOT REPORTED [place] CT HEAD WO CONon 07-29-2020 CT [...] KALIN BRUNER Date: 2020-07-29 17:22 Normal [facility] CULTURE URINEon 07-29-2020 CULTURE URINE Culture Observations: NO GROWTH Normal [facility] Comment on above: Performed By: #### D RUGRPD #### [facility] [address] [place] [address] Alfiejamie Mederos DRUG SCREEN RAPID (URINE)on 07-29-2020 AMP Negative Normal NEGATIVE [facility] Comment on above: Performed By: #### D RUGRPD #### [facility] [address] [place] [address] Alfie Rosa M BAR Negative Normal NEGATIVE [facility] Comment on above: Performed By: #### D RUGRPD #### [facility] [address] [place] [address] Alfie Rosa M BUP Negative Normal NEGATIVE [facility] Comment on above: Performed By: #### D RUGRPD #### [facility] [address] [place] [address] Alfie Rosa M BZO Negative Normal NEGATIVE [facility] Comment on above: Performed By: #### D RUGRPD #### [facility] [address] [place] [address] Alfie Rosa M KRISTINA Negative Normal NEGATIVE [facility] Comment on above: Performed By: #### D RUGRPD #### [facility] [address] [place] [address] Alfie Rosa M CUT-OFFS SEE BELOW Normal [facility] Comment on above: Result Comment: AMP [...] ng/mL Performed By: #### D RUGRPD #### [facility] [address] [place] [address] Alfiejamie Mederos DRUG CUT HEADER DRUG CLASS TEST SYSTEM CUT-OFF CONCENTRATIONS ARE FOLLOWS: Normal [facility] Comment on above: Performed By: #### D RUGRPD #### [facility] [address] [place] [address] Alfie Rosa M mAMP Negative Normal NEGATIVE [facility] Comment on above: Performed By: #### D RUGRPD #### [facility] [address] [place] [address] Alfie Rosa M MTD Negative Normal NEGATIVE [facility] Comment on above: Performed By: #### D RUGRPD #### [facility] [address] [place] [address] Alfie Rosa M OPI Negative Normal NEGATIVE [facility] Comment on above: Performed By: #### D RUGRPD #### [facility] [address] [place] [address] Alfie Rosa M OXY Negative Normal NEGATIVE [facility] Comment on above: Performed By: #### D RUGRPD #### [facility] [address] [place] [address] Alfie Rosa M PCP Negative Normal NEGATIVE [facility] Comment on above: Performed By: #### D RUGRPD #### [facility] [address] [place] [address] Alfie Rosa M PPX Negative Normal NEGATIVE [facility] Comment on above: Performed By: #### D RUGRPD #### [facility] [address] [place] [address] Alfie Rosa M TCA Negative Normal NEGATIVE [facility] Comment on above: Performed By: #### D RUGRPD #### [facility] [address] [place] [address] Alfie Rosa M THC Negative Normal NEGATIVE [facility] Comment on above: Performed By: #### D RUGRPD #### [facility] [address] [place] [address] Alfie Rosa M ER URINE PROFILEon 1 Bilirubin [Mass/Vol] Negative Normal NEGATIVE [facility] Comment on above: Performed By: #### D RUGRPD #### [facility] [address] [place], [place] [address] Alfie Rosa M BLOOD MODERATE Abnormal NEGATIVE [facility] Comment on above: Performed By: #### D RUGRPD #### [facility] [address] [place] [address] Alfie Rosa M Clarity (U) CLEAR Normal CLEAR [facility] Comment on above: Performed By: #### D RUGRPD #### [facility] [address] [place], [place] [phone] Alfie Rosa M Color (U) LT. YELLOW Normal YELLOW [facility] Comment on above: Performed By: #### D RUGRPD #### [facility] [address] [place] [address] Alfie Rosa M ERUAHD A micrscopic examination will be performed if indicated. Normal [facility] Comment on above: Performed By: #### D RUGRPD #### [facility] [address] [place] [address] Alfie Rosa M Glucose [Mass/Vol] >1000 Abnormal NEGATIVE [facility] Comment on above: Performed By: #### Jam RUGRPD #### [facility] [address] [place] [address] Alfie Rosa M Ketones Ql (U) >=80 Abnormal NEGATIVE [facility] Comment on above: Performed By: #### Jam HURTADORPD #### [facility] [address] [place] [address] Alfie Rosa M Nitrite Ql (U) Negative Normal NEGATIVE [facility] Comment on above: Performed By: #### Jam HURTADORPD #### [facility] [address] [place] [address] Alfie Rosa M pH (Bld) 5.5 Normal 5-9 [facility] Comment on above: Performed By: #### Jam HURTADORPD #### [facility] [address] [place] [address] Alfie Rosa M Protein (U) [Mass/Vol] 30 mg/dL Abnormal NEGAT MALISSA/ TRACE [facility] Comment on above: Performed By: #### Jam RUGRPD #### [facility] [address] [place] [address] Alfie Rosa M SPEC GRAVITY 1.025 Normal 1.005-<=1.02 5 [facility] Comment on above: Performed By: #### D RUGRPD #### [facility] [address] [place] [address] Alfie Mederos UR MICRO IND INDICATED Normal [facility] Comment on above: Performed By: #### D RUGRPD #### [facility] [address] [id number] Alfie Mederos Urobilinogen Qn (U) 0.2 EU/dl Normal 0.2 - 1.0 [facility] Comment on above: Performed By: #### D RUGRPD #### [facility] [address] [place], [place] [phone] Alfie Mederos WBC (Bld) [#/Vol] Negative Normal NEGATIVE [facility] Comment on above: Performed By: #### D RUGRPD #### [facility] [address] [place], [place] [phone] Alfie Mederos ETHANOL (BLD ALC)on 07-29-19 21 Ethanol [Mass/Vol] NOTE: 80 mg/dl is the legal limit for a blood alcohol level Normal [facility] Comment on above: Performed By: #### D RUGGUILLERMOD #### [facility] [address] [place], [place] [phone] Alfie Mederos Ethanol [Mass/Vol] mg/dL Normal [facility] Comment on above: Performed By: #### D RUGRPD #### [facility] [address] [place], [place] [phone] Alfie Mederos LACTIC ACID, WHOLE BLOODon 0 07-29-2020 Lactic Acid, Whole Blood 1.1 mmol/L 0.7 - 2.1 mmol/L [facility], [place] Magnesiumon 07-29-2020 Magnesium [Mass/Vol] 2.0 mg/dL 1.6 - 2 .6 mg/dL [facility], [place] Magnesium [Mass/Vol] 1.8 mg/dL 1.6 - 2 .6 mg/dL [facility] [place] NAon 07-29-2020 Sodium [Moles/Vol] 138 mmol/L Normal 137-145 [facility] Comment on above: Performed By: #### K , NA #### [facility] [address] [place], [place] [address] Alfie Rosa M PERIPHERAL SMEARon Pathologist Cyto stain Nom (Cvx/Vag) [ID] DR. LUÍS HAY [facility] Comment on above: Result Comment: nini ed neutrophilia with left shift, rule out infectious process mild erythrocytosis CPT: 85077 luís hay 08-01-20 Performed By: #### C DESIRAE, PERSMR #### [facility] [address] [place], [place] [address] Alfie Rosa M PH VENOUS BLOODon 07-29-2020 PCO2 VENOUS 21.5 mmHg Critically low 40.0-52.0 [facility] Comment on above: Performed By: #### A BG #### [facility] [address] [place] [id number] Alfie Rosa M pH VENOUS <6.93 Critically low 7.33-7.43 [facility] Comment on above: Performed By: #### A BG #### [facility] [address] [place], [place] [address] Alfie Rosa M POC Glucose Fingerstickon Glucose [Mass/Vol] 334 mg/dL High 65 - 105 mg/dL [place], [place] Interpretation and review of laboratory results Abnormal [place] Glucose [Mass/Vol] 340 mg/dL High 65 - 105 mg/dL [place] Interpretation and review of laboratory results Abnormal [place] Glucose [Mass/Vol] 363 mg/dL High 65 - 105 mg/dL [place] Interpretation and review of laboratory results Abnormal [place] POINT OF CARE GLUCOSEon 07-02 Glucose [Mass/Vol] 337 mg/dL Critically high 74-106 [facility] Comment on above: Performed By: #### P OCGLUC #### [facility] [address] [place], [place] [address] Alfie Rosa M Glucose [Mass/Vol] 367 mg/dL Critically high 74-106 [facility] Comment on above: Performed By: #### D RUGRPD #### [facility] [address] [place], [place] [address] Alfie Rosa M Glucose [Mass/Vol] 375 mg/dL Critically high 74-106 [facility] Comment on above: Performed By: #### D RUGRPD #### [facility] [address] [place], [place] [address] Alfie Rosa M Glucose [Mass/Vol] 403 mg/dL Critically high 74-106 [facility] Comment on above: Performed By: #### A BG #### [facility] [address] [place] [address] Alfie Rosa M POTASSIUMon 07-29-2020 Potassium [Moles/Vol] 4.0 mmol/L Normal 3.4-5.0 [facility] Comment on above: Performed By: #### K , NA #### [facility] [address] [place] [phone] Alfie Rosa M URon 07-29-2020 , QUAL Negative Normal NEGATIVE [facility] Comment on above: Performed By: #### P REGU #### [facility] [address] [place] [address] Alfie Rosa M PROF 14(COMP METB)on 021 Albumin [Mass/Vol] 3.2 g/dL Critically low 3.5-5.0 [facility] Comment on above: Performed By: #### D RUGRPD #### [facility] [address] [place] [address] Alfie Rosa M Albumin/Globulin [Mass ratio] 1.0 {ratio} Normal [facility] Comment on above: Performed By: #### D RUGRPD #### [facility] [address] [place] [address] Alfie Rosa M ALP [Catalytic activity/Vol] 135 U/L Critically high 38-126 [facility] Comment on above: Performed By: #### D RUGRPD #### [facility] [address] [place] [id number] Alfie Rosa M ALT [Catalytic activity/Vol] 27 U/L Normal 9-52 [facility] Comment on above: Performed By: #### D RUGRPD #### [facility] [address] [place], [place] [address] Alfie Rosa M Anion gap [Moles/Vol] 31.9 mmol/L Normal [facility] Comment on above: Performed By: #### D RUGRPD #### [facility] [address] [place], [place] [address] Alfie Rosa M AST [Catalytic activity/Vol] 52 U/L Critically high 14-36 [facility] Comment on above: Performed By: #### D RUGRPD #### [facility] [address] [place], [place] [address] Alfie Rosa M Bilirubin Ql (U) 0.5 mg/dL Normal 0.2-1.3 [facility] Comment on above: Performed By: #### D RUGRPD #### [facility] [address] [phone] Alfie Rosa M Calcium [Mass/Vol] 6.8 mg/dL Critically low 8.4-10.2 [facility] Comment on above: Performed By: #### D RUGRPD #### [facility] [address] [place], [place] [address] Alfie Rosa M Chloride [Moles/Vol] 103 mmol/L Normal 98-107 [facility] Comment on above: Performed By: #### D RUGRPD #### [facility] [address] [place], [place] [address] Alfie Rosa M CO2 [Moles/Vol] mmol/L Critically low 22.0-30.0 [facility] Comment on above: Result Comment: TEST REPEATED CRITICAL VALUE VERIFIED Performed By: #### D RUGRPD #### [facility] [address] [place], [place] [address] Alfie Rosa M Creatinine [Mass/Vol] 1.08 mg/dL Critically high 0.52-1.04 [facility] Comment on above: Performed By: #### D RUGRPD #### [facility] [address] [place], [place] [address] Alfie Rosa M EGFR-AF [place] >60 Normal >=60 [facility] Comment on above: Performed By: #### D RUGRPD #### [facility] [address] [place], [place] [address] Alfie Rosa M EGFR-NON AF [place] >60 Normal >=60 [facility] Comment on above: Performed By: #### D RUGRPD #### [facility] [address] [place], [place] [address] Alfie Rosa M Globulin (S) [Mass/Vol] 3.1 g/dL Normal [facility] Comment on above: Performed By: #### D RUGRPD #### [facility] [address] [place], [place] [address] Alfie Rosa M Glucose [Mass/Vol] 448 mg/dL Critically high 74-106 [facility] Comment on above: Performed By: #### D RUGRPD #### [facility] [address] [place], [place] [address] Alfie Rosa M Potassium [Moles/Vol] 3.9 mmol/L Normal 3.4-5.0 [facility] Comment on above: Performed By: #### D RUGRPD #### [facility] [address] [place], [place] [address] Alfie Rosa M Protein [Mass/Vol] 6.3 g/dL Normal 6.1-8.2 [facility] Comment on above: Performed By: #### D RUGGUILLERMOD #### [facility] [address] [place], [place] [address] Alfie Rosa M Sodium [Moles/Vol] 136 mmol/L Critically low 137-145 [facility] Comment on above: Performed By: #### D GENESISRPD #### [facility] [address] [place], [place] [address] Alfie Rosa M Urea nitrogen [Mass/Vol] 28.0 mg/dL Critically high 7.0-17 .0 [facility] Comment on above: Performed By: #### D BELTRAND #### [facility] [address] [place], [place] [address] Alfie Rosa M Urea nitrogen/Creatinine [Mass ratio] 25.9 mg/mg Normal [facility] Comment on above: Performed By: #### D KAILEY #### [facility] [address] [place] [address] Alfie Mederos Phosphoruson 07-29-2020 Phosphate [Mass/Vol] 2.9 mg/dL 2.6 - 4 .5 mg/dL [facility], [place] Phosphate [Mass/Vol] 2.6 mg/dL 2.6 - 4 .5 mg/dL [facility], [place] Rapid Covid-19 PCR (CVDRPD)o n 07-29-2020 [facility] SEE BELOW Normal [facility] Comment on above: Result Comment: This test is not yet approved or cleared by the [place] Food and Drug Administration (FDA) . This test was developed by [employer], [facility]. The performance characteristics of this test were validated by The [facility]. The results are not intended to be used as the sole means for clinical diagnosis or patient management decisions. The [facility] is authorized under Clinical Laboratory Improvement Amendments (CLIA) to perform high-complexity testing. When diagnostic testing is negative, the possibility of a false negative should be considered in the context of a patients recent exposures and the presence of clinical signs and symptoms consistent with SARS-CoV-2. Performed By: #### C VDRPD #### [facility] [address] [place] [address] Alfie Mederos SARS-CoV-2 NOT DETECTED Normal NOT DETECTED [facility] Comment on above: Result Comment: This test is not yet approved or cleared by the [place] Food and Drug Administration (FDA). This test was developed by [employer], [facility]. The performance characteristics of this test were validated by [facility]. The results are not intended to be used as the sole means for clinical diagnosis or patient management decisions. The [facility] is authorized under Clinical Laboratory Improvement Amendments (CLIA) to perform high-complexity testing. Performed By: #### C VDRPD #### [facility] [address] [place] [address] Alfie Mederos SALICYLATEon 07-29-2020 SALICYLATE 10.6 mg/dL Normal <=20.0 [facility] Comment on above: Performed By: #### A BG #### [facility] [address] [place], [place] [phone] Alfie Rosa M URINE MICROSCOPIC ONLYon AMORPHOUS CRYSTALS FEW Normal [facility] Comment on above: Performed By: #### D RUGRPD #### [facility] [address] [place], [place] [phone] Alfie Rosa M Bacteria LM.HPF (Urine sed) [#/Area] SMALL Abnormal NONE SEEN [facility] Comment on above: Performed By: #### D RUGRPD #### [facility] [address] [place], [place] [phone] Alfie Rosa M CAST NONE SEEN Normal NONE SEEN [facility] Comment on above: Performed By: #### D RUGRPD #### [facility] [address] [place], [place] [phone] Alfie Rosa M Crystals LM Nom (Urine sed) SEEN Abnormal NONE SEEN [facility] Comment on above: Performed By: #### D RUGRPD #### [facility] [address] [place], [place] [phone] Alfie Rosa M CULTURE INDICATED Normal [facility] Comment on above: Performed By: #### D RUGRPD #### [facility] [address] [place], [place] [phone] Alfie Rosa M Epithelial cells LM.HPF (Urine sed) [#/Area] FEW Abnormal NONE SEEN /RARE [facility] Comment on above: Performed By: #### D RUGRPD #### [facility] [address] [place], [place] [phone] Alfie Rosa M MUCOUS TRACE Abnormal NONE SEEN [facility] Comment on above: Performed By: #### D RUGRPD #### [facility] [address] [place], [place] [phone] Alfie Rosa M RBC (U) [#/Vol] 2-5 Abnormal 0-2 [facility] Comment on above: Performed By: #### D RUGRPD #### [facility] [address] [place], [place] [phone] Alfie Rosa M WBC (Bld) [#/Vol] 2-5 Abnormal NONE SEEN [facility] [place] [facility] Comment on above: Performed By: #### D RUGRPD #### [facility] [address] [place], [place] [address] Alfie Mederos XR CHEST 1 Von 07-29-2020 XR CHEST 1 V CHEST X-RAY, 1 VIEW HISTORY: Acute respiratory distress.. COMPARISON: None. FINDINGS: The heart, quin, and mediastinum are unremarkable. There is right lower lobe airspace disease. There are no pleural effusions. There is no pneumothorax. IMPRESSION: Right lower lobe atelectasis or infiltrate. Electronically authenticated by: TAMIKO ÁLVAREZ Date: 2020-07-29 11:44 Normal [facility] Comprehensive Metabolic Pane galileo 06-10-2020 Albumin [Mass/Vol] 2.3 g/dL Low 3.2 - 5.2 g/dL [facility] ALP [Catalytic activity/Vol] 70 U/L 40 - 140 U/L [facility] ALT [Catalytic activity/Vol] 21 U/L 14 - 65 U/L [facility] Anion gap [Moles/Vol] 9 mmol/L Low 10 - 2 0 mmol/L [facility] AST [Catalytic activity/Vol] 14 U/L 0 - 45 U/L [facility] Bilirubin [Mass/Vol] 0.3 mg/dL 0 - 1.3 mg/dL [facility] Calcium [Mass/Vol] 8.4 mg/dL 8.4 - 10. 2 mg/dL [facility] Chloride [Moles/Vol] 111 mmol/L High 98 - 10 8 mmol/L [facility] Creatinine [Mass/Vol] 0.56 mg/dL 0.40 - 1.10 [facility] GFR/1.73 sq M predicted among non-blacks MDRD (S/P/Bld) [Vol rate/Area] The eGFR should be used for monitoring renal function only and not for medication dosing. [facility] GFR/1.73 sq M.predicted CKD-EPI (S/P/Bld) [Vol rate/Area] 128 >=60 mL/min/1.73 m2 [facility] Glucose [Mass/Vol] 267 mg/dL High 65 - 99 mg/dL [facility] HCO3 [Moles/Vol] 24 mmol/L 21 - 32 mmol/L [facility] Interpretation and review of laboratory results Abnormal [facility] Potassium [Moles/Vol] 3.9 mmol/L 3.5 - 5.1 mmol/L [facility] Protein [Mass/Vol] 5.5 g/dL Low 6 - 8 g/dL [facility] Sodium [Moles/Vol] 140 mmol/L 135 - 145 mmol/L [facility] Urea nitrogen [Mass/Vol] 9 mg/dL 8 - 25 mg/d L [facility] Urea nitrogen/Creatinine [Mass ratio] 16.1 mg/mg [facility] POC Glucoseon 06-10-2020 Glucose [Mass/Vol] 236 mg/dL High 65 - 99 mg/dL [facility] Interpretation and review of laboratory results Abnormal [facility] Glucose [Mass/Vol] 457 mg/dL Critically high 65 - 9 9 mg/dL [facility] Interpretation and review of laboratory results Abnormal [facility] Critical result acted upon time of test. Test performed at bedside. [facility] Glucose [Mass/Vol] 313 mg/dL High 65 - 99 mg/dL [facility] Interpretation and review of laboratory results Abnormal [facility] Phosphoruson 06-10-2020 Interpretation and review of laboratory results Normal [facility] Phosphate [Mass/Vol] 3.7 mg/dL 2.7 - 4 .5 mg/dL [facility] CBC WITH AUTO DIFFERENTIALon 06-09-2020 Basophils (Bld) [#/Vol] 0.01 10*3/uL [facility] Basophils/100 WBC (Bld) 0.2 % [facility] Eosinophils (Bld) [#/Vol] 0.03 10*3/uL [facility] Eosinophils/100 WBC (Bld) 0.5 % [facility] Erythrocyte distribution width (RBC) [Entitic vol] 13.9 % 11.6 - 14.8 % [facility] Hematocrit (Bld) [Volume fraction] 34.1 % Low 36 - 46 % [facility] Hemoglobin (Bld) [Mass/Vol] 11.8 g/dL Low 12 - 16 g/dL [facility] Immature granulocytes (Bld) [#/Vol] 0.02 10*3/uL [facility] Immature granulocytes/100 WBC (Bld) 0.30 % [facility] Comment on above: The IG parameter is the percentage of metamyelocytes, myelocytes and promyelocytes. An immature granulocyte count (IG) of 1% or more suggests the possibility of infection, an IG count of 3% is very likely related to an infection. Interpretation and review of laboratory results Abnormal [facility] Lymphocytes (Bld) [#/Vol] 1.33 10*3/uL [facility] Lymphocytes/100 WBC (Bld) 22.1 % [facility] MCH (RBC) [Entitic mass] 27.0 pg 26 - 34 pg [facility] MCHC (RBC) [Mass/Vol] 34.6 g/dL 31 - 37 g/dL [facility] MCV (RBC) [Entitic vol] 78.0 fL Low 80 - 100 fL [facility] Monocytes (Bld) [#/Vol] 0.57 10*3/uL [facility] Monocytes/100 WBC (Bld) 9.5 % [facility] Neutrophils (Bld) [#/Vol] 4.05 10*3/uL [facility] Neutrophils/100 WBC (Bld) 67.4 % [facility] Nucleated RBC (Bld) [#/Vol] 0.00 10*3/uL [facility] Nucleated RBC/100 WBC (Bld) [Ratio] 0.0 % [facility] Platelet mean volume (Bld) [Entitic vol] 9.8 fL 9.4 - 12.4 fL [facility] Platelets (Bld) [#/Vol] 255 10*3/uL [facility] RBC (Bld) [#/Vol] 4.37 10*6/uL [facility] WBC (Bld) [#/Vol] 6.01 10*3/uL [facility] Comprehensive Metabolic Pane galileo 06-09-2020 Albumin [Mass/Vol] 2.6 g/dL Low 3.2 - 5.2 g/dL [facility] ALP [Catalytic activity/Vol] 68 U/L 40 - 140 U/L [facility] ALT [Catalytic activity/Vol] 19 U/L 14 - 65 U/L [facility] Anion gap [Moles/Vol] 11 mmol/L 10 - 2 0 mmol/L [facility] AST [Catalytic activity/Vol] 11 U/L 0 - 45 U/L [facility] Bilirubin [Mass/Vol] 0.4 mg/dL 0 - 1.3 mg/dL [facility] Calcium [Mass/Vol] 8.5 mg/dL 8.4 - 10. 2 mg/dL [facility] Chloride [Moles/Vol] 110 mmol/L High 98 - 10 8 mmol/L [facility] Creatinine [Mass/Vol] 0.59 mg/dL 0.40 - 1.10 [facility] GFR/1.73 sq M predicted among non-blacks MDRD (S/P/Bld) [Vol rate/Area] The eGFR should be used for monitoring renal function only and not for medication dosing. [facility] GFR/1.73 sq M.predicted CKD-EPI (S/P/Bld) [Vol rate/Area] 126 >=60 mL/min/1.73 m2 [facility] Glucose [Mass/Vol] 239 mg/dL High 65 - 99 mg/dL [facility] HCO3 [Moles/Vol] 19 mmol/L Low 21 - 32 mmol/L [facility] Potassium [Moles/Vol] 3.2 mmol/L Low 3.5 - 5.1 mmol/L [facility] Protein [Mass/Vol] 5.8 g/dL Low 6 - 8 g/dL [facility]th Sodium [Moles/Vol] 137 mmol/L 135 - 145 mmol/L [facility] Urea nitrogen [Mass/Vol] 6 mg/dL Low 8 - 25 mg/d L [facility] Urea nitrogen/Creatinine [Mass ratio] 10.2 mg/mg [facility] Magnesium Levelon 06-09-2020 Interpretation and review of laboratory results Normal [facility] Magnesium [Mass/Vol] 1.8 mg/dL 1.6 - 2 .4 mg/dL [facility] Otheron 06-09-2020 Interpretation and review of laboratory results Abnormal [facility] Interpretation and review of laboratory results Abnormal [facility] POC Glucoseon 06-09-2020 Glucose [Mass/Vol] 303 mg/dL High 65 - 99 mg/dL [facility] Interpretation and review of laboratory results Abnormal [facility] Glucose [Mass/Vol] 161 mg/dL High 65 - 99 mg/dL [facility] Glucose [Mass/Vol] 335 mg/dL High 65 - 99 mg/dL [facility] Glucose [Mass/Vol] 264 mg/dL High 65 - 99 mg/dL [facility] Interpretation and review of laboratory results Abnormal [facility] Glucose [Mass/Vol] 247 mg/dL High 65 - 99 mg/dL [facility] Interpretation and review of laboratory results Abnormal [facility] Phosphoruson 06-09-2020 Phosphate [Mass/Vol] 2.1 mg/dL Low 2.7 - 4 .5 mg/dL [facility] Potassium Levelon 06-09-2020 Interpretation and review of laboratory results Normal [facility] Potassium [Moles/Vol] 3.6 mmol/L 3.5 - 5.1 mmol/L [facility] URINALYSISon 06-09-2020 Bacteria Auto Ql (U) None Seen None Se en /hpf [facility] Bilirubin Ql (U) Negative Negative [facility] [place] [facility] th Clarity Refractometry automated (U) Clear Clear [facility] Color (U) Colorless Colorless, Yellow [facility] Glucose Auto test strip (U) [Mass/Vol] >=500 Abnormal Negative mg/dL [facility] Hemoglobin Auto test strip Ql (U) Negative Negative [facility] Interpretation and review of laboratory results Abnormal [facility] Ketones (U) [Mass/Vol] Negative Negat malissa mg/dL [facility] Leukocyte esterase Auto test strip Ql (U) Negative Negative [facility] Mucus Auto (Urine sed) [#/Area] Rare None Seen, Rare /lpf [facility] Nitrite Auto test strip Ql (U) Negative Negative [facility] pH (U) 6.0 [pH] [facility] Protein (U) [Mass/Vol] Negative Negat malissa mg/dL [facility] RBC Auto (Urine sed) [#/Area] 1 [facility] Specific gravity (U) [Rel density] 1.009 [facility] Urobilinogen (U) [Mass/Vol] <2.0 <2.0 mg/dL [facility] WBC Auto (Urine sed) [#/Area] 1 [facility] Microscopic examination is performed on all urinalysis samples and only positive findings are reported. The test for blood on the chemical analytic portion of urinalysis may also be positive due to hemoglobinuria and myoglobinuria and if red blood cells are present they are quantified by microscopic examination. [facility] Basic Metabolic Panelon 12-1 0 Anion gap [Moles/Vol] 18 mmol/L 10 - 2 0 mmol/L [facility] Calcium [Mass/Vol] 8.7 mg/dL 8.4 - 10. 2 mg/dL [facility] Chloride [Moles/Vol] 107 mmol/L 98 - 10 8 mmol/L [facility] Creatinine [Mass/Vol] 0.82 mg/dL 0.40 - 1.10 [facility] GFR/1.73 sq M predicted among non-blacks MDRD (S/P/Bld) [Vol rate/Area] The eGFR should be used for monitoring renal function only and not for medication dosing. [facility] GFR/1.73 sq M.predicted CKD-EPI (S/P/Bld) [Vol rate/Area] 98 >=60 mL/min/1.73 m2 [facility] Glucose [Mass/Vol] 321 mg/dL High 65 - 99 mg/dL [facility] HCO3 [Moles/Vol] 11 mmol/L Low 21 - 32 mmol/L [facility] Potassium [Moles/Vol] 4.0 mmol/L 3.5 - 5.1 mmol/L [facility] Sodium [Moles/Vol] 132 mmol/L Low 135 - 145 mmol/L [facility] Urea nitrogen [Mass/Vol] 7 mg/dL Low 8 - 25 mg/d L [facility] Urea nitrogen/Creatinine [Mass ratio] 8.5 mg/mg Low [facility] Anion gap [Moles/Vol] 14 mmol/L 10 - 2 0 mmol/L [facility] Calcium [Mass/Vol] 8.8 mg/dL 8.4 - 10. 2 mg/dL [facility] Chloride [Moles/Vol] 113 mmol/L High 98 - 10 8 mmol/L [facility] Creatinine [Mass/Vol] 0.63 mg/dL 0.40 - 1.10 [facility] GFR/1.73 sq M predicted among non-blacks MDRD (S/P/Bld) [Vol rate/Area] The eGFR should be used for monitoring renal function only and not for medication dosing. [facility] GFR/1.73 sq M.predicted CKD-EPI (S/P/Bld) [Vol rate/Area] 123 >=60 mL/min/1.73 m2 [facility] Glucose [Mass/Vol] 105 mg/dL High 65 - 99 mg/dL [facility] HCO3 [Moles/Vol] 11 mmol/L Low 21 - 32 mmol/L [facility] Interpretation and review of laboratory results Abnormal [facility] Potassium [Moles/Vol] 4.4 mmol/L 3.5 - 5.1 mmol/L [facility] Sodium [Moles/Vol] 134 mmol/L Low 135 - 145 mmol/L [facility] Urea nitrogen [Mass/Vol] 7 mg/dL Low 8 - 25 mg/d L [facility] Urea nitrogen/Creatinine [Mass ratio] 11.1 mg/mg [facility] Anion gap [Moles/Vol] 11 mmol/L 10 - 2 0 mmol/L [facility] Calcium [Mass/Vol] 8.9 mg/dL 8.4 - 10. 2 mg/dL [facility] Chloride [Moles/Vol] 113 mmol/L High 98 - 10 8 mmol/L [facility] Creatinine [Mass/Vol] 0.55 mg/dL 0.40 - 1.10 [facility] GFR/1.73 sq M predicted among non-blacks MDRD (S/P/Bld) [Vol rate/Area] The eGFR should be used for monitoring renal function only and not for medication dosing. [facility] GFR/1.73 sq M.predicted CKD-EPI (S/P/Bld) [Vol rate/Area] 129 >=60 mL/min/1.73 m2 [facility] Glucose [Mass/Vol] 134 mg/dL High 65 - 99 mg/dL [facility] HCO3 [Moles/Vol] 15 mmol/L Low 21 - 32 mmol/L [facility] Interpretation and review of laboratory results Abnormal [facility] Potassium [Moles/Vol] 3.0 mmol/L Low 3.5 - 5.1 mmol/L [facility] Sodium [Moles/Vol] 136 mmol/L 135 - 145 mmol/L [facility] Urea nitrogen [Mass/Vol] 7 mg/dL Low 8 - 25 mg/d L [facility] Urea nitrogen/Creatinine [Mass ratio] 12.7 mg/mg [facility] Beta-Hydroxybutyrateon 06-08 Beta hydroxybutyrate [Moles/Vol] 0.4 mmol/L High 0 - 0.3 mmol/L [facility] Beta hydroxybutyrate [Moles/Vol] 0.3 mmol/L 0 - 0.3 mmol/L [facility] CBC WITH AUTO DIFFERENTIALon 06-08-2020 Basophils (Bld) [#/Vol] 0.02 10*3/uL [facility] Basophils/100 WBC (Bld) 0.2 % [facility] Eosinophils (Bld) [#/Vol] 0.02 10*3/uL [facility] Eosinophils/100 WBC (Bld) 0.2 % [facility] Erythrocyte distribution width (RBC) [Entitic vol] 13.4 % 11.6 - 14.8 % [facility] Hematocrit (Bld) [Volume fraction] 37.5 % 36 - 46 % [facility] Hemoglobin (Bld) [Mass/Vol] 13.0 g/dL 12 - 16 g/dL [facility] Immature granulocytes (Bld) [#/Vol] 0.06 10*3/uL [facility] Immature granulocytes/100 WBC (Bld) 0.60 % [facility] Comment on above: The IG parameter is the percentage of metamyelocytes, myelocytes and promyelocytes. An immature granulocyte count (IG) of 1% or more suggests the possibility of infection, an IG count of 3% is very likely related to an infection. Interpretation and review of laboratory results Abnormal [facility] Lymphocytes (Bld) [#/Vol] 0.97 10*3/uL [facility] Lymphocytes/100 WBC (Bld) 10.3 % [facility] MCH (RBC) [Entitic mass] 27.1 pg 26 - 34 pg [facility] MCHC (RBC) [Mass/Vol] 34.7 g/dL 31 - 37 g/dL [facility] MCV (RBC) [Entitic vol] 78.1 fL Low 80 - 100 fL [facility] Monocytes (Bld) [#/Vol] 0.61 10*3/uL [facility] Monocytes/100 WBC (Bld) 6.5 % [facility] Neutrophils (Bld) [#/Vol] 7.76 10*3/uL High [facility] Neutrophils/100 WBC (Bld) 82.2 % [facility] Nucleated RBC (Bld) [#/Vol] 0.01 10*3/uL High [facility] Nucleated RBC/100 WBC (Bld) [Ratio] 0.1 % [facility] Platelet mean volume (Bld) [Entitic vol] 9.2 fL Low 9.4 - 12.4 fL [facility] Platelets (Bld) [#/Vol] 293 10*3/uL [facility] RBC (Bld) [#/Vol] 4.80 10*6/uL [facility] WBC (Bld) [#/Vol] 9.44 10*3/uL [facility] Comprehensive Metabolic Pane [facility] 06-08-2020 Albumin [Mass/Vol] 2.6 g/dL Low 3.2 - 5.2 g/dL [facility] ALP [Catalytic activity/Vol] 68 U/L 40 - 140 U/L [facility] ALT [Catalytic activity/Vol] 20 U/L 14 - 65 U/L [facility] Anion gap [Moles/Vol] 15 mmol/L 10 - 2 0 mmol/L [facility] AST [Catalytic activity/Vol] 17 U/L 0 - 45 U/L [facility] Bilirubin [Mass/Vol] 0.2 mg/dL 0 - 1.3 mg/dL [facility] Calcium [Mass/Vol] 8.5 mg/dL 8.4 - 10. 2 mg/dL [facility] Chloride [Moles/Vol] 112 mmol/L High 98 - 10 8 mmol/L [facility] Creatinine [Mass/Vol] 0.65 mg/dL 0.40 - 1.10 [facility] GFR/1.73 sq M predicted among non-blacks MDRD (S/P/Bld) [Vol rate/Area] The eGFR should be used for monitoring renal function only and not for medication dosing. [facility] GFR/1.73 sq M.predicted CKD-EPI (S/P/Bld) [Vol rate/Area] 122 >=60 mL/min/1.73 m2 [facility] Glucose [Mass/Vol] 255 mg/dL High 65 - 99 mg/dL [facility] HCO3 [Moles/Vol] 12 mmol/L Low 21 - 32 mmol/L [facility] Potassium [Moles/Vol] 3.6 mmol/L 3.5 - 5.1 mmol/L [facility] Protein [Mass/Vol] 5.8 g/dL Low 6 - 8 g/dL [facility] Sodium [Moles/Vol] 135 mmol/L 135 - 145 mmol/L [facility] Urea nitrogen [Mass/Vol] 9 mg/dL 8 - 25 mg/d L [facility] Urea nitrogen/Creatinine [Mass ratio] 13.8 mg/mg [facility] Albumin [Mass/Vol] 2.8 g/dL Low 3.2 - 5.2 g/dL [facility] ALP [Catalytic activity/Vol] 75 U/L 40 - 140 U/L [facility] ALT [Catalytic activity/Vol] 21 U/L 14 - 65 U/L [facility] Anion gap [Moles/Vol] 14 mmol/L 10 - 2 0 mmol/L [facility] AST [Catalytic activity/Vol] 20 U/L 0 - 45 U/L [facility] Bilirubin [Mass/Vol] 0.2 mg/dL 0 - 1.3 mg/dL [facility] Calcium [Mass/Vol] 8.7 mg/dL 8.4 - 10. 2 mg/dL [facility] Chloride [Moles/Vol] 115 mmol/L High 98 - 10 8 mmol/L [facility] Creatinine [Mass/Vol] 0.56 mg/dL 0.40 - 1.10 [facility] GFR/1.73 sq M predicted among non-blacks MDRD (S/P/Bld) [Vol rate/Area] The eGFR should be used for monitoring renal function only and not for medication dosing. [facility] GFR/1.73 sq M.predicted CKD-EPI (S/P/Bld) [Vol rate/Area] 128 >=60 mL/min/1.73 m2 [facility] Glucose [Mass/Vol] 100 mg/dL High 65 - 99 mg/dL [facility] HCO3 [Moles/Vol] 12 mmol/L Low 21 - 32 mmol/L [facility] Potassium [Moles/Vol] 3.7 mmol/L 3.5 - 5.1 mmol/L [facility] Protein [Mass/Vol] 6.3 g/dL 6 - 8 g/dL [facility] Sodium [Moles/Vol] 137 mmol/L 135 - 145 mmol/L [facility] Urea nitrogen [Mass/Vol] 9 mg/dL 8 - 25 mg/d L [facility] Urea nitrogen/Creatinine [Mass ratio] 16.1 mg/mg [facility] Albumin [Mass/Vol] 2.9 g/dL Low 3.2 - 5.2 g/dL [facility] ALP [Catalytic activity/Vol] 76 U/L 40 - 140 U/L [facility] ALT [Catalytic activity/Vol] 22 U/L 14 - 65 U/L [facility] Anion gap [Moles/Vol] 13 mmol/L 10 - 2 0 mmol/L [facility] AST [Catalytic activity/Vol] 18 U/L 0 - 45 U/L [facility] Bilirubin [Mass/Vol] 0.2 mg/dL 0 - 1.3 mg/dL [facility] Calcium [Mass/Vol] 8.4 mg/dL 8.4 - 10. 2 mg/dL [facility] Chloride [Moles/Vol] 115 mmol/L High 98 - 10 8 mmol/L [facility] Creatinine [Mass/Vol] 0.64 mg/dL 0.40 - 1.10 [facility] GFR/1.73 sq M predicted among non-blacks MDRD (S/P/Bld) [Vol rate/Area] The eGFR should be used for monitoring renal function only and not for medication dosing. [facility] GFR/1.73 sq M.predicted CKD-EPI (S/P/Bld) [Vol rate/Area] 123 >=60 mL/min/1.73 m2 [facility] Glucose [Mass/Vol] 124 mg/dL High 65 - 99 mg/dL [facility] HCO3 [Moles/Vol] 13 mmol/L Low 21 - 32 mmol/L [facility] Interpretation and review of laboratory results Abnormal [facility] Potassium [Moles/Vol] 3.3 mmol/L Low 3.5 - 5.1 mmol/L [facility] Protein [Mass/Vol] 6.4 g/dL 6 - 8 g/dL [facility] Sodium [Moles/Vol] 138 mmol/L 135 - 145 mmol/L [facility] Urea nitrogen [Mass/Vol] 8 mg/dL 8 - 25 mg/d L [facility] Urea nitrogen/Creatinine [Mass ratio] 12.5 mg/mg [facility] IRON STUDY WITH FERRITINon 1 08-09-2019 Ferritin [Mass/Vol] 56 ng/mL 13 - 150 ng/mL [facility] Interpretation and review of laboratory results Abnormal [facility] Iron [Mass/Vol] 15 ug/dL Low [facility] Iron binding capacity [Mass/Vol] 254 [facility] Iron saturation [Mass fraction] 6 % Low 20 - 50 % [facility] Magnesiumon 06-08-2020 Magnesium [Mass/Vol] 1.9 mg/dL 1.6 - 2 .4 mg/dL [facility] Otheron 06-08-2020 Interpretation and review of laboratory results Abnormal [facility] Interpretation and review of laboratory results Abnormal [facility] Interpretation and review of laboratory results Normal [facility] Interpretation and review of laboratory results Abnormal [facility] POC Glucoseon 06-08-2020 Glucose [Mass/Vol] 384 mg/dL High 65 - 99 mg/dL [facility] Interpretation and review of laboratory results Abnormal [facility] Glucose [Mass/Vol] 344 mg/dL High 65 - 99 mg/dL [facility] Glucose [Mass/Vol] 131 mg/dL High 65 - 99 mg/dL [facility] Interpretation and review of laboratory results Abnormal [facility] Glucose [Mass/Vol] 143 mg/dL High 65 - 99 mg/dL [facility] Interpretation and review of laboratory results Abnormal [facility] Glucose [Mass/Vol] 159 mg/dL High 65 - 99 mg/dL [facility] Interpretation and review of laboratory results Abnormal [facility] Glucose [Mass/Vol] 169 mg/dL High 65 - 99 mg/dL [facility] Interpretation and review of laboratory results Abnormal [facility] Glucose [Mass/Vol] 270 mg/dL High 65 - 99 mg/dL [facility] Interpretation and review of laboratory results Abnormal [facility] Glucose [Mass/Vol] 269 mg/dL High 65 - 99 mg/dL [facility] Interpretation and review of laboratory results Abnormal [facility] Glucose [Mass/Vol] 106 mg/dL High 65 - 99 mg/dL [facility] Interpretation and review of laboratory results Abnormal [facility] Glucose [Mass/Vol] 110 mg/dL High 65 - 99 mg/dL [facility] Interpretation and review of laboratory results Abnormal [facility] Glucose [Mass/Vol] 115 mg/dL High 65 - 99 mg/dL [facility] Interpretation and review of laboratory results Abnormal [facility] Glucose [Mass/Vol] 103 mg/dL High 65 - 99 mg/dL [facility] Interpretation and review of laboratory results Abnormal [facility] Glucose [Mass/Vol] 121 mg/dL High 65 - 99 mg/dL [facility] Interpretation and review of laboratory results Abnormal [facility] Glucose [Mass/Vol] 158 mg/dL High 65 - 99 mg/dL [facility] Interpretation and review of laboratory results Abnormal [facility] Glucose [Mass/Vol] 139 mg/dL High 65 - 99 mg/dL [facility] Interpretation and review of laboratory results Abnormal [facility] Phosphoruson 06-08-2020 Phosphate [Mass/Vol] 1.4 mg/dL Low 2.7 - 4 .5 mg/dL [facility] XR CHEST PA/APon 06-08-2020 XR CHEST PA/AP EXAMINATION: PORTABLE AP UPRIGHT CHEST: 06/08/2020 AT 2032 HOURS. HISTORY: Diminished to absent lung sounds on the right. Low-grade fever. COMPARISON FILMS: None. FINDINGS: Patient is somewhat rotated, lordotic. The visualized osseous structures appear intact. The heart size seems normal. The aorta is normal contour. There is some patchy density [id number]-tacrc lung on the right without discrete focal consolidating infiltrates. No pleural effusions, pulmonary edema or pneumothorax. IMPRESSION: 1. Questionable patchy vague densities in the right lower lobe distribution which could be a nonspecific finding however atypical bacterial or viral pneumonia would be difficult to exclude. 2. No acute process otherwise or pleural effusions. [employer] Workstation ID: [id number] Dictated by: MICHAEL DEE on FriJun 08, 2020 9:43:13 PM EST Transcribed by: MORGNA BROWN on FriJun 08, 2020 9:55:57 PM EST Finalized by: MICHAEL DEE on FriJun 08, 2020 10:02:49 PM EST Normal [facility] Comment on above: Order Comment: Injur [...] normal contour. There is some patchy density rpw-nu-[id number] lung on the right without discrete focal consolidating infiltrates. No pleural effusions, pulmonary edema or pneumothorax. [facility] 1. Questionable patchy vague densities in the right lower lobe distribution which could be a nonspecific finding however atypical bacterial or viral pneumonia would be difficult to exclude. 2. No acute process otherwise or pleural effusions. [employer] Workstation ID: [id number] [facility] Interface, Rad In [employer] - 06/08/2020 10:05 PM EST EXAMINATION: PORTABLE AP UPRIGHT CHEST: 06/08/2020 AT 2032 HOURS. HISTORY: Diminished to absent lung sounds on the right. Low-grade fever. COMPARISON FILMS: None. FINDINGS: Patient is somewhat rotated, lordotic. The visualized osseous structures appear intact. The heart size seems normal. The aorta is normal contour. There is some patchy density [id number] lung on the right without discrete focal consolidating infiltrates. No pleural effusions, pulmonary edema or pneumothorax. IMPRESSION: 1. Questionable patchy vague densities in the right lower lobe distribution which could be a nonspecific finding however atypical bacterial or viral pneumonia would be difficult to exclude. 2. No acute process otherwise or pleural effusions. [employer] Workstation ID: [id number] [facility] Basic Metabolic Panelon 12-0 Anion gap [Moles/Vol] 16 mmol/L 10 - 2 0 mmol/L [facility] Calcium [Mass/Vol] 8.2 mg/dL Low 8.4 - 10. 2 mg/dL [facility] Chloride [Moles/Vol] 114 mmol/L High 98 - 10 8 mmol/L [facility] Creatinine [Mass/Vol] 0.71 mg/dL 0.40 - 1.10 [facility] GFR/1.73 sq M predicted among non-blacks MDRD (S/P/Bld) [Vol rate/Area] The eGFR should be used for monitoring renal function only and not for medication dosing. [facility] GFR/1.73 sq M.predicted CKD-EPI (S/P/Bld) [Vol rate/Area] 117 >=60 mL/min/1.73 m2 [facility] Glucose [Mass/Vol] 172 mg/dL High 65 - 99 mg/dL [facility] HCO3 [Moles/Vol] 10 mmol/L Low 21 - 32 mmol/L [facility] Interpretation and review of laboratory results Abnormal [facility] Potassium [Moles/Vol] 2.8 mmol/L Low 3.5 - 5.1 mmol/L [facility] Sodium [Moles/Vol] 137 mmol/L 135 - 145 mmol/L [facility] Urea nitrogen [Mass/Vol] 7 mg/dL Low 8 - 25 mg/d L [facility] Urea nitrogen/Creatinine [Mass ratio] 9.9 mg/mg Low [facility] Beta-Hydroxybutyrateon 06-07 Beta hydroxybutyrate [Moles/Vol] 1.8 mmol/L High 0 - 0.3 mmol/L [facility] Interpretation and review of laboratory results Abnormal [facility] Beta hydroxybutyrate [Moles/Vol] 5.6 mmol/L High 0 - 0.3 mmol/L [facility] Interpretation and review of laboratory results Abnormal [facility] CBC WITH AUTO DIFFERENTIALon 06-07-2020 Basophils (Bld) [#/Vol] 0.04 10*3/uL [facility] Basophils/100 WBC (Bld) 0.3 % [facility] Eosinophils (Bld) [#/Vol] 0.00 10*3/uL [facility] Eosinophils/100 WBC (Bld) 0.0 % [facility] Erythrocyte distribution width (RBC) [Entitic vol] 13.5 % 11.6 - 14.8 % [facility] Hematocrit (Bld) [Volume fraction] 46.4 % High 36 - 46 % [facility] Hemoglobin (Bld) [Mass/Vol] 14.7 g/dL 12 - 16 g/dL [facility] Immature granulocytes (Bld) [#/Vol] 0.09 10*3/uL [facility] Immature granulocytes/100 WBC (Bld) 0.60 % [facility] Comment on above: The IG parameter is the percentage of metamyelocytes, myelocytes and promyelocytes. An immature granulocyte count (IG) of 1% or more suggests the possibility of infection, an IG count of 3% is very likely related to an infection. Interpretation and review of laboratory results Abnormal [facility] Lymphocytes (Bld) [#/Vol] 1.42 10*3/uL [facility] Lymphocytes/100 WBC (Bld) 9.1 % [facility] MCH (RBC) [Entitic mass] 27.2 pg 26 - 34 pg [facility] MCHC (RBC) [Mass/Vol] 31.7 g/dL 31 - 37 g/dL [facility] MCV (RBC) [Entitic vol] 85.8 fL 80 - 100 fL [facility] Monocytes (Bld) [#/Vol] 0.82 10*3/uL [facility] Monocytes/100 WBC (Bld) 5.3 % [facility] Neutrophils (Bld) [#/Vol] 13.19 10*3/uL High [facility] Neutrophils/100 WBC (Bld) 84.7 % [facility] Nucleated RBC (Bld) [#/Vol] 0.00 10*3/uL [facility] Nucleated RBC/100 WBC (Bld) [Ratio] 0.0 % [facility] Platelet mean volume (Bld) [Entitic vol] 9.5 fL 9.4 - 12.4 fL [facility] Platelets (Bld) [#/Vol] 302 10*3/uL [facility] RBC (Bld) [#/Vol] 5.41 10*6/uL High [facility] WBC (Bld) [#/Vol] 15.56 10*3/uL [facility] Metabolic Pane galileo 06-07-2020 Albumin [Mass/Vol] 3.4 g/dL 3.2 - 5.2 g/dL [facility] ALP [Catalytic activity/Vol] 94 U/L 40 - 140 U/L [facility] ALT [Catalytic activity/Vol] 27 U/L 14 - 65 U/L [facility] Anion gap [Moles/Vol] 22 mmol/L High 10 - 2 0 mmol/L [facility] AST [Catalytic activity/Vol] 27 U/L 0 - 45 U/L [facility] Bilirubin [Mass/Vol] 0.4 mg/dL 0 - 1.3 mg/dL [facility] Calcium [Mass/Vol] 8.0 mg/dL Low 8.4 - 10. 2 mg/dL [facility] Chloride [Moles/Vol] 113 mmol/L High 98 - 10 8 mmol/L [facility] Creatinine [Mass/Vol] 0.73 mg/dL 0.40 - 1.10 [facility] GFR/1.73 sq M predicted among non-blacks MDRD (S/P/Bld) [Vol rate/Area] The eGFR should be used for monitoring renal function only and not for medication dosing. [facility] GFR/1.73 sq M.predicted CKD-EPI (S/P/Bld) [Vol rate/Area] 113 >=60 mL/min/1.73 m2 [facility] Glucose [Mass/Vol] 199 mg/dL High 65 - 99 mg/dL [facility] HCO3 [Moles/Vol] 6 mmol/L Critically low 21 - 32 mmol/L [facility] Interpretation and review of laboratory results Abnormal [facility] Potassium [Moles/Vol] 4.1 mmol/L 3.5 - 5.1 mmol/L [facility] Protein [Mass/Vol] 7.1 g/dL 6 - 8 g/dL [facility] Sodium [Moles/Vol] 137 mmol/L 135 - 145 mmol/L [facility] Urea nitrogen [Mass/Vol] 11 mg/dL 8 - 25 mg/d L [facility] Urea nitrogen/Creatinine [Mass ratio] 15.1 mg/mg [facility] Hemoglobin A1con 06-07-2020 Average glucose Estimated from glycated hemoglobin mass conc (Bld) 464 mg/dL High 74 - 114 mg/dL [facility] HbA1c (Bld) [Mass fraction] 17.8 % High 4.2 - 5.6 % [facility] Interpretation and review of laboratory results Abnormal [facility] Normal: 4.2% - 5.6% Increased risk for diabetes: 5.7% - 6.4% Diabetes: >= 6.5% Pediatrics: No established reference range Estimated average glucose: 74-114 mg/dL [facility] Magnesium Levelon 06-07-2020 Interpretation and review of laboratory results Normal [facility] Magnesium [Mass/Vol] 2.0 mg/dL 1.6 - 2 .4 mg/dL [facility] POC Glucoseon 06-07-2020 Glucose [Mass/Vol] 135 mg/dL High 65 - 99 mg/dL [facility] Interpretation and review of laboratory results Abnormal [facility] Glucose [Mass/Vol] 164 mg/dL High 65 - 99 mg/dL [facility] Interpretation and review of laboratory results Abnormal [facility] Glucose [Mass/Vol] 190 mg/dL High 65 - 99 mg/dL [facility] Interpretation and review of laboratory results Abnormal [facility] Glucose [Mass/Vol] 180 mg/dL High 65 - 99 mg/dL [facility] Interpretation and review of laboratory results Abnormal [facility] Glucose [Mass/Vol] 159 mg/dL High 65 - 99 mg/dL [facility] Interpretation and review of laboratory results Abnormal [facility] Glucose [Mass/Vol] 172 mg/dL High 65 - 99 mg/dL [facility] Interpretation and review of laboratory results Abnormal [facility] Glucose [Mass/Vol] 200 mg/dL High 65 - 99 mg/dL [facility] Interpretation and review of laboratory results Abnormal [facility] Glucose [Mass/Vol] 201 mg/dL High 65 - 99 mg/dL [facility] Interpretation and review of laboratory results Abnormal [facility] Glucose [Mass/Vol] 228 mg/dL High 65 - 99 mg/dL [facility] Interpretation and review of laboratory results Abnormal [facility] Glucose [Mass/Vol] 238 mg/dL High 65 - 99 mg/dL [facility] Interpretation and review of laboratory results Abnormal [facility] Glucose [Mass/Vol] 178 mg/dL High 65 - 99 mg/dL [facility] Interpretation and review of laboratory results Abnormal [facility] Glucose [Mass/Vol] 186 mg/dL High 65 - 99 mg/dL [facility] Interpretation and review of laboratory results Abnormal [facility] Phosphoruson 06-07-2020 Interpretation and review of laboratory results Abnormal [facility] Phosphate [Mass/Vol] 2.0 mg/dL Low 2.7 - 4 .5 mg/dL [facility] TSH with Reflex Free T4on Interpretation and review of laboratory results Normal [facility] TSH Qn 0.66 m[IU]/L [facility] Vital Signs Date Time Vital Sign Value Performing Clinician Facility 07-04-2023 12:00-0500 Body temperature 98.01 [degF] Letty Yee MD Work Phone: [facility] 07-04-2023 12:00-0500 Diastolic blood pressure 78 mm[Hg] Letty Yee MD Work Phone: [facility] 07-04-2023 12:00-0500 Heart rate 102 /min Letty Yee MD Work Phone: [facility] 07-04-2023 12:00-0500 Respiratory rate 14 /min Letty Yee MD Work Phone: [facility] 07-04-2023 12:00-0500 SaO2% (BldA) [Mass fraction] 99 % Letty Yee MD Work Phone: [facility] 07-04-2023 12:00-0500 Systolic blood pressure 130 mm[Hg] Letty Yee MD Work Phone: [facility] 07-04-2023 02:48-0500 Body mass index (BMI) [Ratio] 21.76 kg/m2 Letty Yee MD Work Phone: [facility] 07-04-2023 02:48-0500 Body weight 64.9 kg Letty Yee MD Work Phone: [facility] 07-03-2023 10:34-0500 Body height 172.7 cm Letty Yee MD Work Phone: [facility] 07-02-2023 19:16-0500 SaO2% (BldA) [Mass fraction] 100 % SAENZAYAH YEE [facility] Comment on above: Performed By: #### VBG #### [facility] ([id number]) [address] [place] [address] 07-02-2023 17:18-0500 Body temperature 98.6 [degF] Letty Yee MD Work Phone: [facility] 07-02-2023 17:18-0500 SaO2% (BldA) [Mass fraction] 100 % Letty Yee MD Work Phone: [facility] 08-01-2020 19:49-0500 Body Temperature 98.01 [degF] [facility] [place] 08-01-2020 19:49-0500 BP Diastolic 94 mm[Hg] [facility] [place] 08-01-2020 19:49-0500 BP Systolic 146 mm[Hg] [facility] [place] 02-02-2021 19:49-0500 Pulse (Heart Rate) 59 /min [facility] [place] 08-01-2020 19:49-0500 Respiratory Rate 18 /min [facility] [place] 08-01-2020 12:00-0500 Pulse Oximetry 92 % [facility] [place] 08-01-2020 06:00-0500 BMI (Body Mass Index) 22.31 [facility] [place] 08-01-2020 06:00-0500 Body [facility] 58.97 [facility] [place] 07-29-2020 20:00-0500 Height 162.6 cm [facility] [place] 07-29-2020 19:50-0500 Respiratory rate NOT REPORTED [facility] 06-10-2020 15:59-0500 Body Temperature 98.1 [degF] [facility] 06-10-2020 15:59-0500 BP Diastolic 80 mm[Hg] [facility] 06-10-2020 15:59-0500 BP Systolic 115 mm[Hg] [facility] 06-10-2020 15:59-0500 Pulse (Heart Rate) 67 /min [facility] 06-10-2020 15:59-0500 Pulse Oximetry 99 % [facility] 06-10-2020 15:59-0500 Respiratory Rate 16 /min [facility] 06-10-2020 04:39-0500 BMI (Body Mass Index) 20.18 kg/m2 [facility] 06-10-2020 04:39-0500 Body weight 60.2 kg [facility] 06-07-2020 12:31-0500 Height 172.7 cm [facility] En[facility]ters Encounter Date Encounter Type Care Provider Facility Start: 07-04-2023 End: 07-04-2023 [facility] Start: 07-03-2023 End: 07-05-2023 Evaluation and management of inpatient CHAS DARDEN [facility] Start: 07-02-2023 End: 07-04-2023 Evaluation and management of inpatient SAENZ MIKY YEE [facility] Start: 07-02-2023 ambulatory ARCADIO IGLESIAS [facility] Start: 07-02-2023 End: 07-04-2023 Evaluation and management of inpatient Letty Miky Yee MD Work Phone: [facility] - GEN 7 ICU Comment on above: Diabetic ketoacidosi s without coma associated with type 1 diabetes mellitus ([facility]) (Primary Dx); Type 1 diabetes mellitus with ketoacidosis without coma ([facility]) Start: 06-12-2023 End: 06-13-2023 Evaluation and management of inpatient ARCADIO IGLESIAS Facility:[facility] Start: 05-30-2023 End: 05-30-2023 Emergency department patient visit ARCADIO IGLESIAS Facility:[facility] Start: 03-18-2023 End: 03-20-2023 Evaluation and management of inpatient MARTIN DAVIS [facility] Start: 03-17-2023 End: 03-18-2023 Emergency department patient visit Linn H lang Facility:[facility] Start: 03-16-2023 End: 03-16-2023 ambulatory ARCADIO IGLESIAS Facility:[facility] Start: 08-25-2022 End: 08-26-[address] ARCADIO IGLESIAS Facility:[facility] Start: 03-18-2022 End: 03-18-[address] ARCADIO IGLESIAS Facility:[facility] Start: 12-26-[address] ARCADIO IGLESIAS Facil ity:[facility] Start: 08-17-2020 End: 08-17-2020 Orders Only Uyen Otto Work Phone: [facility] Start: 07-29-2020 End: 08-02-2020 Evaluation and management of inpatient Naomy Morse Work Phone: [facility] Start: 07-29-2020 End: 07-29-2020 Patient encounter procedure [facility] Facility:[facility] Start: 06-07-2020 End: 06-10-2020 Evaluation and management of inpatient PHYSICIAN NO [facility] Start: 06-07-2020 End: 06-10-2020 Evaluation and management of inpatient Goitom Andom Asgedom Work Phone: [facility] Surgical [facility] [place] Start: 07-07-2018 End: 07-08-2018 Patient encounter procedure DEFAULT PHYSICIAN Facility:[facility] Procedures Date Procedure Procedure Detail Performing [...] Start: 07-03-2023 End: 07-03-2023 Electrolyte panel Tim Beintes i, MD Work Phone: Start: 07-03-2023 Gluc [...] Phone: Start: 07-30-2020 SPECIMEN REJECTION [facility]k [facility] Work Phone: Start: 07-30-2020 End: 07-30-2020 Glucose blood reagent strip Stan Ana Work Phone: Start: 07-30-2020 TOX SCR, COMPLETE BL Ve nkat [facility] Work Phone: Start: 07-30-2020 End: 07-30-2020 Glucose [...] End: 07-30-2020 Glucose blood reagent strip Stan [employer] Work Phone: Start: 07-30-2020 Assay of magnesium [...] Start: 06-08-2020 Glucose [Mass/volume ] in Blood ACarirllo Pinasombol Nohay Work Phone: Start: 06-08-2020 End: [...] [Mass/volu me] in Serum or Plasma Binh Pniasombol Nohay Work Phone: Start: 06-08-2020 Glucose [Mass/volume ] in Blood ACarrillo Piansombol Nohay Work Phone: Start: 06-08-2020 Glucose [Mass/volume ] in Blood A.Arcadio Chandler Nolovey Work Phone: Start: 06-08-2020 End: 06-08-2020 Glucose [Mass/volume] in Blood A.Arcadio Perkinsol Nolovey Work Phone: Start: 06-07-2020 Comprehensive metabo lic 2000 panel - Serum or Plasma A.Arcadio Chandler Nolvoey Work Phone: Start: 06-07-2020 Glucose [Mass/volume ] [...] Start: 12-06-2020 HbA1c (Bld) [Mass fraction] A1C [facility] Start: 10-28-2020 HbA1c (Bld) [Mass fraction] A1C test (Diabetic or Prediabetic) [place], [place] Start: 02-29-2020 Influenza vaccination Flu vaccine (#1) [place] Start: 02-29-2020 Influenza vaccination given Sequential Influenza Vaccine (#1) [facility] Start: 08-05-2019 Albumin DL <= 20 mg/L (U) [Mass/Vol] Urine Microalbumin [facility] Start: 2014 Screening for malignant neoplasm of cervix Cervical cancer screen [place], [place] Start: 2012 DTaP/Tdap/Td vaccine (1 - Tdap) DTaP/Tdap/Td vaccine (1 - Tdap) [place] Start: 2011 Diabetic microalbuminuria test Diabetic microalbuminuria test [place] Start: 2011 Hepatitis C antibody, confirmatory test Hepatitis C Screening [facility] Start: 2008 HIV screening [facility] Start: 2005 Adolescent depression screening assessment Depression Screening (PHQ9) [facility] Start: 2003 [facility]abetic [facility] Start: 2003 Diabetic retinal exam Diabetic retinal exam [place], [place] Start: 2003 Lipid panel Lipid screen [place], [place] Start: 2003 Ophthalmic examination and evaluation Ophthalmology Exam [facility] Start: 1996 History and physical examination, annual for health maintenance Wellness Visit [facility] Start: 1994 Varicella vaccine (1 of 2 - 2-dose childhood series) Varicella vaccine (1 of 2 - 2-dose childhood series) [place], [place] Start: 1993 Hepatitis C screening Hepatitis C screen [place], [place] Start: 1993 Screening for malignant neoplasm of cervix Pap Smear [facility] Start: 1993 Tetanus vaccination Tetanus: Every 10yrs [facility] End: 08-05-2020 Basic metabolic 2000 panel Basic Metabolic Panel Lab Timed Every 4 Hours (Lab) for 25 Occurrences starting 08/01/2020 until 08/05/2020, 2 completed [place] Comment on above: Every 4 Hours (Lab) for 25 Occurrences s tarting 08/01/2020 until 08/05/2020, 2 completed CBC WITH AUTO DIFFERENTIAL CBC WITH AUTO DIFFERENTIAL Lab Routine Daily until discontinued starting 08/02/2020 [facility] [place] Comment on above: Daily until discontinued starting 2020 [facility] End: 07-30-2020 Drugs of abuse 9 serum w/ reflex Drugs of abuse 9 serum w/ reflex Lab Routine Once for 1 Occurrences starting 07/30/2020 until 07/30/2020 [facility] [place] Comment on above: Once for 1 Occurrences starting 07/30/19 21 until 07/30/2020 Drugs of abuse 9 ser um w/ reflex Drugs of abuse 9 serum w/ reflex Lab Routine 07/30/2020 12:02 PM EST [facility] [place] End: 08-05-2020 Magnesium [Mass/Vol] Magnesium Lab Timed Every 4 Hours (Lab) for 25 Occurrences starting 08/01/2020 until 08/05/2020, 2 completed [facility] [place] Comment on above: Every 4 Hours (Lab) for 25 Occurrences s tarting 08/01/2020 until 08/05/2020, 2 completed End: 07-03-2023 Magnesium [Mass/volume] in Serum or Plasma Magnesium Lab Routine Once for 1 Occurrences starting 07/03/2023 until 07/03/2023 [facility] Work Phone: Comment on above: Once for 1 Occurrences starting 07/03/19 24 until 07/03/2023 Oxygen therapy [[facility] Data Set] Initiate Oxygen Therapy Protocol Respiratory Care Routine Daily until discontinued starting 07/29/2020 [facility] [place] Comment on above: Daily until discontinued starting 2020 End: 08-05-2020 Phosphate [Mass/Vol] Phosphorus Lab Timed Every 4 Hours (Lab) for 25 Occurrences starting 08/01/2020 until 08/05/2020, 2 completed [facility] [place] Comment on above: Every 4 Hours (Lab) for 25 Occurrences s tarting 08/01/2020 until 08/05/2020, 2 completed POCT glucose [facility] [place] Comment on above: 4X Daily (AC & HS) until discontinued st arting 07/31/2020 As Needed until disc ontinued starting 07/31/2020 End: 03-12-2021 POCT Glucose - every hour POCT Glucose - every hour Point of Care Testing Timed Every Hour (Lab) for 980 Occurrences starting 07/30/2020 until 09/08/2020 [facility] ANTHONY Comment on above: Every Hour (Lab) for 980 Occurrences sta rting 07/30/2020 until 09/08/2020 End: 07-30-2020 PREVIOUS SPECIMEN PREVIOUS SPECIMEN Lab Routine Once for 1 Occurrences starting 07/30/2020 until 07/30/2020 [facility] ANTHONY Comment on above: Once for 1 Occurrences starting 07/30/19 21 until 07/30/2020 PREVIOUS SPECIMEN PREVIOUS SPECI MEN Lab Routine 07/30/2020 12:02 PM EST [facility] TOX SCR, COMPLETE BL TOX SCR, CO MPLETE BL Lab Add-On 07/30/2020 10:11 AM BARB [facility] Payers Date Payer Category Payer Unknown [id number] 2015 Medicaid [employer] [employer] [employer] [id number] 2015-Present [phone] [place] [id number] 2015 Unknown [employer] PLAN [id number] 2015-Present [id number] 1993 Unknown [id number] 1993 Unknown [id number] 1993 Unknown [id number] [id number] 1993 Unknown [id number] 1993 Unknown [id number] 1993 Unknown [id number] [id number] 1993 Unknown [id number] [id number] 1993 Unknown [id number] [id number] 1993 Unknown [id number] 1993 Unknown [id number] 1993 Unknown [id number] [id number] 1993 Unknown [id number] [id number] 1993 Unknown [id number] [id number] 1993 Unknown [id number] [id number] 1993 Unknown [id number] 1959 Self-pay 1961 Unknown [id number] Unknown Social History Date Type Detail Facility Tobacco smoking stat [facility] Unknown if ever smoked [facility] Start: 1993 Sex Assigned At [facility] Exposure to SARS-CoV -2 (event) Not sure [facility] Start: 07-03-2023 Tobacco smoking stat [facility] Smokes tobacco daily [facility] History of tobacco use Cigarette Smoker P [facility] Start: 06-15-2022 End: 07-03-2023 Cigarettes smoked current (pack per day) - Reported 0.5 [facility] Start: 07-03-2023 Tobacco use and exposure Smoke less tobacco non-user [facility] Start: 07-04-2023 Alcohol intake Current non-dr messaging architect of alcohol (finding) [facility] Start: 06-15-2022 End: 07-04-2023 Social connection and isolation panel [facility] Do you belong to any clubs or organizations such as adventist groups, unions, fraternal or athletic groups, or school groups? No [facility] Are you now , , , , never or living with a partner? Patient declined [facility] How often to you hav e a drink containing alcohol? Never [facility] Do you feel stress - tense, restless, nervous, or anxious, or unable to sleep at night because your mind is troubled all the time - these days [OSQ] Not at all [facility] Start: 07-03-2023 Tobacco Comment hasn't smoked in 1 week, one cig per day [facility] Goals Date Patient Goal Desired [...] from the original note were not included. [facility] [address] [place] [address] Service Pager: Macy Drew MD, Interim Chief [...] 140-180mg/dL in accordance with recommendations from the [place] [employer]. Blood glucoses above 200 mg/dl are [facility] monitored performance measures. ASSESSMENT and PLAN: Douglas [...] clinic/Endocrinology) within 1-2 weeks of discharge, at [facility], [address], [place] [address]. Need to call to schedule it: . [...] incarceration. Per chart, patient initially presented to [facility] 07/02 via EMS for altered mental status. [...] I did not find any documentation from police officer crime prevention follow up. ROS/Subjective/Interval history: Pt was sleepy [...] use, recent incarceration. Patient initially presented to [facility] 07/02 via EMS for altered mental status. [...] 250cc/hr. Failed to improve requiring transfer to [facility] for higher acuity care in ICU. Upon [...] progress note was completed using a voice bakery manager system. Every effort was made to ensure accuracy. However, inadvertent computerized bakery manager errors may be present. Ronal Logan MD PGY1 IM Resident [facility] 07/04/23 1:53 PM Associated attestation - Letty Yee MD - 07/04/2023 3:59 PM EST I have seen and examined the patient on rounds with the resident/fellow. I repeated the brown components of the exam. I confirm the note and agree with the assessment and plan except as stated below: Letty Yee MD [facility] Critical Care Medicine Images from [...] use, recent incarceration. Patient initially presented to [facility] 07/02 via EMS for altered mental status. [...] 250cc/hr. Failed to improve requiring transfer to [facility] for higher acuity care in ICU. Upon [...] progress note was completed using a voice bakery manager system. Every effort was made to ensure accuracy. However, inadvertent computerized bakery manager errors may be present. Ronal Logan MD PGY1 IM Resident [facility] Medicine 07/03/23 9:58 AM Associated attestation - Letty Yee MD - 07/03/2023 9:06 PM EST I have seen and examined the patient on rounds with the resident/fellow. I repeated the brown components of the exam. I confirm the note and agree with the assessment and plan except as stated below: Letty Yee MD [facility] Critical Care Medicine documented in this encounter [facility] 07-04-2023 Progress note Formatting of t his note might be different from the original. Met with patient, introduced self and explained role as management psychologist/liaison. Began an interview in order to complete [...] meetings. Patient was born and raised in [place] and is a high school graduate. She is with two children, both of whom live with her parents. 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 She currently lives with friends in [place]. Patient has been linked with [facility] for mental health services in the past. She states she is active with NA meetings. Patient is willing to consider recommendations for additional mental health services. Will monitor, assist in coordinating such services as appropriate. - STEPHANIA Ma 07/04/23 3:53 PM [facility] [employer] [facility] 07-04-2023 Miscellaneous Notes Met with patient, introduced self and explained role as management psychologist/liaison. Began an interview in order to complete [...] meetings. Patient was born and raised in [place] and is a high school graduate. She is with two children, both of whom live with her parents. 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 She currently lives with friends in [place]. Patient has been linked with [facility] for mental health services [...] witnessed by Dr. Darden and myself, Dr. Loagn They had the opportunity to ask questions [...] Description: INTERVENTIONS: 1. Encourage patient or legal inventory representative to report early pain and ask [...] per policy 9. Teach patient or legal inventory representative interventions for comforting Outcome: Progressing Note: [...] at the bedside 7. Instruct patient/ patient inventory representative about use of safety devices 8. Include patient/ patient inventory representative in decisions related to safety Outcome: [...] hygiene technique 7. Identify and instruct patient/patient inventory representative in use of appropriate isolation precautions for identified infection/symptoms 8. Provide and discuss with patient/patient inventory representative on educational MDRO sheet 9. Encourage and monitor nutritional status daily and consult knife glazer if indicated 10. Implement neutropenic guidelines as needed 11. Review exposure to history of communicable disease and recent travel history on admission 12. Encourage annual influenza vaccine 13. Encourage pneumonia vaccine Outcome: Progressing Note: Evaluation of progress towards goal: Pt receiving antibiotics. Labs drawn and monitored. Sites assessed and reassessed for s/s of infection. Problem: Knowledge Deficit Goal: Patient/patient inventory representative demonstrates understanding of disease process, treatment [...] Score of =/> 25 or indicated by [facility] Assessment Goal: Patient should be free from fall Description: Interventions: 1. [place] to environment 2. Hourly rounds addressing the [...] non-skid footwear 11. Teach patient and patient inventory representative to maintain environment for safety and [...] (cane, walker) within reach 19. Request patient inventory representative bring adaptive equipment/mobility aids from home or obtain and provide as needed 20. Consult pharmacy regarding effects of med's affecting mobility, cognition, and alternatives 21. Obtain physician order for PT if risk factors associated with mobility are present 22. Obtain physician order for OT as appropriate 23. Utilize diversional activities 24. Educate patient and patient inventory representative how to maintain a safe environment during visitation times (notify nurse prior to leaving bedside) 25. Consider appropriateness of medical or non-medical billing and coding instructor 26. Set up voiding schedule as appropriate [...] discharge planning process 5. Communicate referral to early childhood educator aide as appropriate 6. Communicate referral to knife glazer as appropriate 7. Collaborate with case management/social work supervisor for discharge needs Outcome: Progressing Note: Evaluation [...] supplement as ordered 13. Collaborate with clinical knife glazer 14. Include patient/ patient's inventory representative in decisions related to nutrition Outcome: [...] Description: INTERVENTIONS: 1. Encourage patient or legal inventory representative to report early pain and ask [...] per policy 9. Teach patient or legal inventory representative interventions for comforting Outcome: Progressing Note: [...] at the bedside 7. Instruct patient/ patient inventory representative about use of safety devices 8. Include patient/ patient inventory representative in decisions related to safety Outcome: [...] hygiene technique 7. Identify and instruct patient/patient inventory representative in use of appropriate isolation precautions for identified infection/symptoms 8. Provide and discuss with patient/patient inventory representative on educational MDRO sheet 9. Encourage and monitor nutritional status daily and consult knife glazer if indicated 10. Implement neutropenic guidelines as needed 11. Review exposure to history of communicable disease and recent travel history on admission 12. Encourage annual influenza vaccine 13. Encourage pneumonia vaccine Outcome: Progressing Note: Evaluation of progress towards goal: Patient is afebrile at present time. Will monitor labs and vital signs. Problem: Knowledge Deficit Goal: Patient/patient inventory representative demonstrates understanding of disease process, treatment [...] Score of =/> 25 or indicated by [facility] Assessment Goal: Patient should be free from fall Description: Interventions: 1. [place] to environment 2. Hourly rounds addressing the [...] non-skid footwear 11. Teach patient and patient inventory representative to maintain environment for safety and [...] (cane, walker) within reach 19. Request patient inventory representative bring adaptive equipment/mobility aids from home or obtain and provide as needed 20. Consult pharmacy regarding effects of med's affecting mobility, cognition, and alternatives 21. Obtain physician order for PT if risk factors associated with mobility are present 22. Obtain physician order for OT as appropriate 23. Utilize diversional activities 24. Educate patient and patient inventory representative how to maintain a safe environment during visitation times (notify nurse prior to leaving bedside) 25. Consider appropriateness of medical or non-medical billing and coding instructor 26. Set up voiding schedule as appropriate [...] Description: INTERVENTIONS: 1. Encourage patient or legal inventory representative to report early pain and ask [...] per policy 9. Teach patient or legal inventory representative interventions for comforting Outcome: Progressing Note: [...] at the bedside 7. Instruct patient/ patient inventory representative about use of safety devices 8. Include patient/ patient inventory representative in decisions related to safety Outcome: [...] hygiene technique 7. Identify and instruct patient/patient inventory representative in use of appropriate isolation precautions for identified infection/symptoms 8. Provide and discuss with patient/patient inventory representative on educational MDRO sheet 9. Encourage and monitor nutritional status daily and consult knife glazer if indicated 10. Implement neutropenic guidelines as needed 11. Review exposure to history of communicable disease and recent travel history on admission 12. Encourage annual influenza vaccine 13. Encourage pneumonia vaccine Outcome: Progressing Note: Evaluation of progress towards goal: Pt is afebrile at this time. CBC being monitored Problem: Knowledge Deficit Goal: Patient/patient inventory representative demonstrates understanding of disease process, treatment [...] be free from fall Description: Interventions: 1. [place] to environment 2. Hourly rounds addressing the [...] non-skid footwear 11. Teach patient and patient inventory representative to maintain environment for safety and [...] (cane, walker) within reach 19. Request patient inventory representative bring adaptive equipment/mobility aids from home or obtain and provide as needed 20. Consult pharmacy regarding effects of med's affecting mobility, cognition, and alternatives 21. Obtain physician order for PT if risk factors associated with mobility are present 22. Obtain physician order for OT as appropriate 23. Utilize diversional activities 24. Educate patient and patient inventory representative how to maintain a safe environment during visitation times (notify nurse prior to leaving bedside) 25. Consider appropriateness of medical or non-medical billing and coding instructor 26. Set up voiding schedule as appropriate [...] discharge planning process 5. Communicate referral to early childhood educator aide as appropriate 6. Communicate referral to knife glazer as appropriate 7. Collaborate with case management/social work supervisor for discharge needs Outcome: Progressing Note: Evaluation [...] Description: INTERVENTIONS: 1. Encourage patient or legal inventory representative to report early pain and ask [...] per policy 9. Teach patient or legal inventory representative interventions for comforting Outcome: Progressing Note: [...] at the bedside 7. Instruct patient/ patient inventory representative about use of safety devices 8. Include patient/ patient inventory representative in decisions related to safety Outcome: [...] hygiene technique 7. Identify and instruct patient/patient inventory representative in use of appropriate isolation precautions for identified infection/symptoms 8. Provide and discuss with patient/patient inventory representative on educational MDRO sheet 9. Encourage and monitor nutritional status daily and consult knife glazer if indicated 10. Implement neutropenic guidelines as needed 11. Review exposure to history of communicable disease and recent travel history on admission 12. Encourage annual influenza vaccine 13. Encourage pneumonia vaccine Outcome: Progressing Note: Evaluation of progress towards goal: Patient is afebrile at present time. Will monitor labs and vital signs. Problem: Knowledge Deficit Goal: Patient/patient inventory representative demonstrates understanding of disease process, treatment [...] Score of =/> 25 or indicated by [facility] Assessment Goal: Patient should be free from fall Description: Interventions: 1. [place] to environment 2. Hourly rounds addressing the [...] non-skid footwear 11. Teach patient and patient inventory representative to maintain environment for safety and [...] (cane, walker) within reach 19. Request patient inventory representative bring adaptive equipment/mobility aids from home or obtain and provide as needed 20. Consult pharmacy regarding effects of med's affecting mobility, cognition, and alternatives 21. Obtain physician order for PT if risk factors associated with mobility are present 22. Obtain physician order for OT as appropriate 23. Utilize diversional activities 24. Educate patient and patient inventory representative how to maintain a safe environment during visitation times (notify nurse prior to leaving bedside) 25. Consider appropriateness of medical or non-medical billing and coding instructor 26. Set up voiding schedule as appropriate [...] with pillow support. documented in this encounter [facility] [employer] 07-04-2023 Hospital course Narrative Images from the [...] use, recent incarceration. Patient initially presented to [facility] 07/02 via EMS for altered mental status. [...] 250cc/hr. Failed to improve requiring transfer to [facility] for higher acuity care in ICU. Upon [...] 1-2 weeks of discharge Follow up with police officer crime prevention within 3 days of discharge No future [...] except as stated below: Letty Yee MD [facility] Critical Care Medicine documented in this encounter [facility] 07-04-2023 Plan of care note [...] lantus 20 BID Ronal Logan MD PGY-1 [employer] 07-04-2023 Hospital Discharge instructions Ronal Logan MD [...] manage your T1DM. documented in this encounter [employer] 07-04-2023 Plan of care note Problem: Pain Goal: Patient goal is pain score less than 4, able to rest, and participant in treatment plan as appropriate Description: INTERVENTIONS: 1. Encourage patient or legal inventory representative to report early pain and ask [...] per policy 9. Teach patient or legal inventory representative interventions for comforting Outcome: Progressing Note: [...] at the bedside 7. Instruct patient/ patient inventory representative about use of safety devices 8. Include patient/ patient inventory representative in decisions related to safety Outcome: [...] hygiene technique 7. Identify and instruct patient/patient inventory representative in use of appropriate isolation precautions for identified infection/symptoms 8. Provide and discuss with patient/patient inventory representative on educational MDRO sheet 9. Encourage and monitor nutritional status daily and consult knife glazer if indicated 10. Implement neutropenic guidelines as needed 11. Review exposure to history of communicable disease and recent travel history on admission 12. Encourage annual influenza vaccine 13. Encourage pneumonia vaccine Outcome: Progressing Note: Evaluation of progress towards goal: Pt receiving antibiotics. Labs drawn and monitored. Sites assessed and reassessed for s/s of infection. Problem: Knowledge Deficit Goal: Patient/patient inventory representative demonstrates understanding of disease process, treatment [...] be free from fall Description: Interventions: 1. [place] to environment 2. Hourly rounds addressing the [...] non-skid footwear 11. Teach patient and patient inventory representative to maintain environment for safety and [...] (cane, walker) within reach 19. Request patient inventory representative bring adaptive equipment/mobility aids from home or obtain and provide as needed 20. Consult pharmacy regarding effects of med's affecting mobility, cognition, and alternatives 21. Obtain physician order for PT if risk factors associated with mobility are present 22. Obtain physician order for OT as appropriate 23. Utilize diversional activities 24. Educate patient and patient inventory representative how to maintain a safe environment during visitation times (notify nurse prior to leaving bedside) 25. Consider appropriateness of medical or non-medical billing and coding instructor 26. Set up voiding schedule as appropriate [...] discharge planning process 5. Communicate referral to early childhood educator aide as appropriate 6. Communicate referral to knife glazer as appropriate 7. Collaborate with case management/social work supervisor for discharge needs Outcome: Progressing Note: Evaluation [...] supplement as ordered 13. Collaborate with clinical knife glazer 14. Include patient/ patient's inventory representative in decisions related to nutrition Outcome: [...] prn and per policy. [facility] [employer] [facility] 07-03-2023 Plan of care note Problem: Pain Goal: Patient goal is pain score less than 4, able to rest, and participant in treatment plan as appropriate Description: INTERVENTIONS: 1. Encourage patient or legal inventory representative to report early pain and ask [...] per policy 9. Teach patient or legal inventory representative interventions for comforting Outcome: Progressing Note: [...] at the bedside 7. Instruct patient/ patient inventory representative about use of safety devices 8. Include patient/ patient inventory representative in decisions related to safety Outcome: [...] hygiene technique 7. Identify and instruct patient/patient inventory representative in use of appropriate isolation precautions for identified infection/symptoms 8. Provide and discuss with patient/patient inventory representative on educational MDRO sheet 9. Encourage and monitor nutritional status daily and consult knife glazer if indicated 10. Implement neutropenic guidelines as needed 11. Review exposure to history of communicable disease and recent travel history on admission 12. Encourage annual influenza vaccine 13. Encourage pneumonia vaccine Outcome: Progressing Note: Evaluation of progress towards goal: Patient is afebrile at present time. Will monitor labs and vital signs. Problem: Knowledge Deficit Goal: Patient/patient inventory representative demonstrates understanding of disease process, treatment [...] Score of =/> 25 or indicated by [facility] Assessment Goal: Patient should be free from fall Description: Interventions: 1. [place] to environment 2. Hourly rounds addressing the [...] non-skid footwear 11. Teach patient and patient inventory representative to maintain environment for safety and [...] (cane, walker) within reach 19. Request patient inventory representative bring adaptive equipment/mobility aids from home or obtain and provide as needed 20. Consult pharmacy regarding effects of med's affecting mobility, cognition, and alternatives 21. Obtain physician order for PT if risk factors associated with mobility are present 22. Obtain physician order for OT as appropriate 23. Utilize diversional activities 24. Educate patient and patient inventory representative how to maintain a safe environment during visitation times (notify nurse prior to leaving bedside) 25. Consider appropriateness of medical or non-medical billing and coding instructor 26. Set up voiding schedule as appropriate [...] turned every 2 hours with pillow support. [facility] [employer] [facility] 07-03-2023 Consult note Associated Order (s): IP CONSULT TO ENDOCRINOLOGY Images from the original note were not included. [facility] [address] [place] [address] Service Pager: Macy Drew MD, Interim Chief [...] 140-180mg/dL in accordance with recommendations from the [place] [employer]. Blood glucoses above 200 mg/dl [...] incarceration. Per chart, patient initially presented to [facility] 07/02 via EMS for altered mental status. [...] I did not find any documentation from police officer crime prevention follow up. Diabetes History: Duration of Diabetes: [...] Asthma Depression Diabetes mellitus type I ([facility]) DM type 1 (diabetes mellitus, type 1) ([facility]) Genital herpes GERD (gastroesophageal reflux disease) Herpes [...] 40 mEq infusion, 250 mL/hr, intravenous, Continuous, hCas Darden DO, Held at 07/03/23 1115 dextrose [...] >16.5 (H) 06/07/2021 Catrina Longo PA-C 07/03/23 [id number] [facility] 07-03-2023 Consult note Associated Order (s): IP CONSULT TO ENDOCRINOLOGY Images from the original note were not included. [facility] [address] [place] [address] Service Pager: Macy Drew MD, Interim Chief [...] 140-180mg/dL in accordance with recommendations from the [place] [employer]. Blood glucoses above 200 mg/dl [...] incarceration. Per chart, patient initially presented to [facility] 07/02 via EMS for altered mental status. [...] I did not find any documentation from police officer crime prevention follow up. Diabetes History: Duration of Diabetes: [...] Asthma Depression Diabetes mellitus type I ([facility]) DM type 1 (diabetes mellitus, type 1) ([facility]) Genital herpes GERD (gastroesophageal reflux disease) Herpes [...] >16.5 (H) 06/07/2021 Catrina Longo PA-C 07/03/23 [id number] documented in this encounter [facility] 07-03-2023 Plan of care note Problem: Pain Goal: Patient goal is pain score less than 4, able to rest, and participant in treatment plan as appropriate Description: INTERVENTIONS: 1. Encourage patient or legal inventory representative to report early pain and ask [...] per policy 9. Teach patient or legal inventory representative interventions for comforting Outcome: Progressing Note: [...] at the bedside 7. Instruct patient/ patient inventory representative about use of safety devices 8. Include patient/ patient inventory representative in decisions related to safety Outcome: [...] hygiene technique 7. Identify and instruct patient/patient inventory representative in use of appropriate isolation precautions for identified infection/symptoms 8. Provide and discuss with patient/patient inventory representative on educational MDRO sheet 9. Encourage and monitor nutritional status daily and consult knife glazer if indicated 10. Implement neutropenic guidelines as needed 11. Review exposure to history of communicable disease and recent travel history on admission 12. Encourage annual influenza vaccine 13. Encourage pneumonia vaccine Outcome: Progressing Note: Evaluation of progress towards goal: Pt is afebrile at this time. CBC being monitored Problem: Knowledge Deficit Goal: Patient/patient inventory representative demonstrates understanding of disease process, treatment [...] Score of =/> 25 or indicated by [facility] Assessment Goal: Patient should be free from fall Description: Interventions: 1. [place] to environment 2. Hourly rounds addressing the [...] non-skid footwear 11. Teach patient and patient inventory representative to maintain environment for safety and [...] (cane, walker) within reach 19. Request patient inventory representative bring adaptive equipment/mobility aids from home or obtain and provide as needed 20. Consult pharmacy regarding effects of med's affecting mobility, cognition, and alternatives 21. Obtain physician order for PT if risk factors associated with mobility are present 22. Obtain physician order for OT as appropriate 23. Utilize diversional activities 24. Educate patient and patient inventory representative how to maintain a safe environment during visitation times (notify nurse prior to leaving bedside) 25. Consider appropriateness of medical or non-medical billing and coding instructor 26. Set up voiding schedule as appropriate [...] discharge planning process 5. Communicate referral to early childhood educator aide as appropriate 6. Communicate referral to knife glazer as appropriate 7. Collaborate with case management/social work supervisor for discharge needs Outcome: Progressing Note: Evaluation [...] place. Skin is kept clean and dry. [facility] 07-02-2023 Plan of care note Problem: Pain Goal: Patient goal is pain score less than 4, able to rest, and participant in treatment plan as appropriate Description: INTERVENTIONS: 1. Encourage patient or legal inventory representative to report early pain and ask [...] per policy 9. Teach patient or legal inventory representative interventions for comforting Outcome: Progressing Note: [...] at the bedside 7. Instruct patient/ patient inventory representative about use of safety devices 8. Include patient/ patient inventory representative in decisions related to safety Outcome: [...] hygiene technique 7. Identify and instruct patient/patient inventory representative in use of appropriate isolation precautions for identified infection/symptoms 8. Provide and discuss with patient/patient inventory representative on educational MDRO sheet 9. Encourage and monitor nutritional status daily and consult knife glazer if indicated 10. Implement neutropenic guidelines as needed 11. Review exposure to history of communicable disease and recent travel history on admission 12. Encourage annual influenza vaccine 13. Encourage pneumonia vaccine Outcome: Progressing Note: Evaluation of progress towards goal: Patient is afebrile at present time. Will monitor labs and vital signs. Problem: Knowledge Deficit Goal: Patient/patient inventory representative demonstrates understanding of disease process, treatment [...] Score of =/> 25 or indicated by [facility] Assessment Goal: Patient should be free from fall Description: Interventions: 1. [place] to environment 2. Hourly rounds addressing the [...] non-skid footwear 11. Teach patient and patient inventory representative to maintain environment for safety and [...] (cane, walker) within reach 19. Request patient inventory representative bring adaptive equipment/mobility aids from home or obtain and provide as needed 20. Consult pharmacy regarding effects of med's affecting mobility, cognition, and alternatives 21. Obtain physician order for PT if risk factors associated with mobility are present 22. Obtain physician order for OT as appropriate 23. Utilize diversional activities 24. Educate patient and patient inventory representative how to maintain a safe environment during visitation times (notify nurse prior to leaving bedside) 25. Consider appropriateness of medical or non-medical billing and coding instructor 26. Set up voiding schedule as appropriate [...] turned every 2 hours with pillow support. [facility] 07-02-2023 History and physical note Images from the original note were not included. Adult ICU History & Physical Patient - Douglas Cordova Age - 28 [facility] 1995 [id number] Date of Admission - 07/02/2023 4:55 PM Chief Complaint Altered mental status, nausea vomititng, symptomatic hyperglycemia History of Present Illness Douglas Cordova is a 28 y.o. female with a past medical history of uncontrolled T1DM d/t insulin noncompliance, numerous DKA exacerbations requiring multiple ICU admissions, diabetic neuropathy, psoriasis, adhd, hx of methamphetamine use, recent incarceration. Patient initially presented to [facility] 07/02 via EMS for altered mental status. [...] 250cc/hr. Failed to improve requiring transfer to [facility] for higher acuity care in ICU. Upon [...] Asthma Depression Diabetes mellitus type I ([facility]) DM type 1 (diabetes mellitus, type 1) ([facility]) Genital herpes GERD (gastroesophageal reflux disease) Herpes [...] progress note was completed using a voice bakery manager system. Every effort was made to ensure accuracy. However, inadvertent computerized bakery manager errors may be present. Ronal Logan MD PGY1 IM Resident [facility] Internal Medicine 07/02/23 5:26 PM Associated attestation - Letty Yee MD - 07/03/2023 9:04 PM EST I have seen and examined the patient on rounds with the resident/fellow. I repeated the brown components of the exam. I confirm the note and agree with the assessment and plan except as stated below: Letty Yee MD [facility] Critical Care Medicine [facility] 07-02-2023 History and physical note Images from the original note were not included. Adult ICU History & Physical Patient - Duoglas Cordova Age - 28 [facility]. [facility] 1995 [facility] - [id number] Date of Admission - 07/02/2023 4:55 PM Chief Complaint Altered mental status, nausea vomititng, symptomatic hyperglycemia History of Present Illness Douglas Cordova is a 28 y.o. female with a past medical history of uncontrolled T1DM d/t insulin noncompliance, numerous DKA exacerbations requiring multiple ICU admissions, diabetic neuropathy, psoriasis, adhd, hx of methamphetamine use, recent incarceration. Patient initially presented to [facility] 07/02 via EMS for altered mental status. [...] 250cc/hr. Failed to improve requiring transfer to [facility] for higher acuity care in ICU. Upon [...] Anxiety Asthma Depression Diabetes mellitus type I ([facility]) DM type 1 (diabetes mellitus, type 1) ([facility]) Genital herpes GERD (gastroesophageal reflux disease) Herpes [...] progress note was completed using a voice bakery manager system. Every effort was made to ensure accuracy. However, inadvertent computerized bakery manager errors may be present. Ronal Logan MD PGY1 IM Resident [facility] Internal Medicine 07/02/23 5:26 PM Associated attestation - Letty Yee MD - 07/03/2023 9:04 PM EST I have seen and examined the patient on rounds with the resident/fellow. I repeated the brown components of the exam. I confirm the note and agree with the assessment and plan except as stated below: Letty Yee MD [facility] Physicians Critical Care Medicine documented in this encounter [facility] 06-16-2023 Note [phone] [id number][facility]23 Note Education Materials Endocrinology Hyperglycemia Hyperglycemia [...] instructions at home: General instructions ? Take ywwc-fiq-biapbwd and prescription medicines only as told by [...] have diabetes. Where to find more information [place] [employer]: www.diabetes.org Contact a doctor if: [...] or act (ment (more content not included)... [facility] Evaluation note Diagnosis DKA (diabetic ketoacidosis) ([facility] Primary Type II or unspecified type diabetes mellitus with ketoacidosis, not stated as uncontrolled Diabetic ketoacidosis without coma associated with type 1 diabetes mellitus ([facility]) Type 1 diabetes mellitus with ketoacidosis without coma ([facility]) documented in this encounter [facility] Summary Purpose Family History No Family History Records FoundNo Family History Records FoundNo Family History Records FoundNo Family History Records FoundNo Family History Records FoundNo Family History Records FoundNo Family History Records FoundNo Family History Records Found Advance Directives No Advanced Directives Records FoundDocuments on File Type Date Recorded Patient Sales Support Rep Expl anation Advance Directives and Livin g Will 06/07/2020 12:33 PM Latest Code Status on File Code Status Date Activated Date Inactivated Comments Full Code 06/07/2020 11:23 AM 06/10/2020 7:35 PM Full Code 06/07/2020 11:21 AM 06/07/2020 11:23 AM Latest Code Status on File Code Status Date Activated Date Inactivated Comments Full Code 07/29/2020 6:56 PM Documents on File Type Date Recorded Patient Sales Support Rep Expl anation Advance Directives and Livin g [...] HOSPITALIST DISCHARGE SUMMARY Patient: Douglas Cordova Account: [id number] Admitted: 06/07/2020 Discharge Date/Time: 06/10/2020 Clinical Summary REASON FOR HOSPITALIZATION/HPI: Douglas Cordova is a 25 y.o. female patient of No primary care provider on file. with history of DM1 presented with hyperglycemia. DIAGNOSES: DKA from [facility], non compliance with her home insulin -DKA pathway initiated. -Resolved -Transition to Lantus, and Humalog -A1c1 7.8 -Patient seen by early childhood educator aide -Stable for discharge home although her sugars [...] No acute process otherwise or pleural effusions. [employer] Workstation ID: [id number] Procedures No orders of the defined types were placed in this encounter. Consults Procedures Inpatient consult to Metal Turner Inpatient consult to Dietitian Inpatient consult to Care Management Other Tests No orders of the defined types were placed in this encounter. Allergies Penicillins and Shellfish derived Discharge Diet Diet Special; Diabetic; Carbohydrate Consistent 60g/meal (0234-2772 kCal equivalent) Disposition Discharge Medications Medication List [...] Medications These medications were sent to [facility] [address] [id number] insulin glargine 100 unit/mL injection insulin lispro 100 unit/mL injection Physician(s) Family: Physician No, Phone: None, Address: [facility] Follow Up: PCP Follow up [...] Diabetic Diet please contact Central Scheduling at [phone] to set up an outpatient appointment with a Registered Dietitian. Please check out [place] [employer] at www.diabetes.org for more resources. * Attachments The following attachments cannot be sent through Care Everywhere. * Carbohydrates: General Info (Thai) * Diabetes: Counting Carbohydrates (Thai) * Low Carbohydrate Foods: General Info (Thai) * Diabetic Ketoacidosis (DKA) (Thai) documented in this encounter History of Present [...] with hyperglycemia. Impression and Plan: DKA from [facility], non compliance with her home insulin, resolved. [...] to follow up Atelectasis CXR reviewed IS Pul[employer] toilet [employer] activity HypoPO4 Replacement ordered HypoK [...] with discharge needs and insulin. Dietary and religious educator has already been consulted. 0900: Spoke with Shu Barahona, early childhood educator aide and she is going in to speak [...] family are not able to come from [place], [place] to visit her due to the [...] for Future Visits: Pt aware to contact Children'S Entertainer as needed, PRN Visit 1-2 times every 7 days or consult Pastoral Care PRN. Rev. Shannon Parekh MDiv. Staff [facility] Contact * Binh Virk MD - 06/08/2020 9:36 AM EST DAILY PROGRESS NOTE Douglas Cordova is a 25 y.o. female patient of No primary care provider on file. with history of DM1 presented with hyperglycemia. Impression and Plan: DKA from [facility], non compliance with her home insulin, improving [...] much information when asked. Per report from [facility] in [place] stated patient stopped taking her insulin 3 [...] Jin RN - 08/02/2020 12:31 AM EST Parasitologist perfect serve message Internal Medicine to notify primary did elope and leave hospital. Alsonotified patient did leave jewelry in room and will send to security. * Felicity Jin RN - 08/01/2020 10:25 PM EST Parasitologist called [facility] to notify patient left unit at 2030 and has not return. Patient did sign policy on patient's remaining of unit form. Also notified patient did state to machine sign writer shewas not leaving AMA. Patient's jewelry still present in room. Pamela states to wait till midnight to remove patient off unit. * Felicity Jin RN - 08/01/2020 8:30 PM EST Patient requested to walk off the unit.. Parasitologist notified patient policy on patients remaining on unit. Patient states she is not leaving AMA and does disregard warnings against leaving the unit. Patient did sign policy on patient's remaining on their unit form and witness by machine sign writer and place in alexander ent's chart. * Damien Olivarez MD - 08/01/2020 7:06 PM EST [facility] Department of Internal Medicine - Staff Internal Medicine Service ICU PATIENT TRANSFER NOTE Patient: Douglas Sousa Date of : 1995 Acct: [id number] Admit date: 07/29/2020 Code Status:- Full code [...] at goal (HCC) [E10.10] and presented to [facility] with C/O abdominal pain, nausea and vomiting and was found to be in DKA. Patient was started on DKA protocol, on IV fluids and received 1 dose of Rocephin and azithromycin due to elevated white count. Patient was transferred to [facility] for further evaluation and management. [...] issues concerning noncompliance, patient might benefit from drug abuse social worker consult. Depression: History of depression in the past, stopped taking antidepressant by herself. Recommend psych eval. DVT prophylaxis: Lovenox 40 mg. PT/OT/SW: Consulted Discharge planning: manufacturing manager consulted Damien Olivarez MD Department of Internal Medicine [facility] [place] 08/01/2020, 7:06 PM Associated attestation - Naomy [...] at home, advised to follow-up with her police officer crime prevention/PCP Advised to be compliant with medical recommendations Naomy Morse MD Attending Physician, Internal Medicine Service Internal Medicine Residency Program 08/01/2020, 10:21 PM * Vikki Weber MD - 08/01/2020 11:35 AM EST Critical care team - Resident sign-out to medicine service Date and time: 08/01/2020 11:35 AM Patient's name: Douglas Sousa Patient's account/billing number: [id number] Patient's Date of : 1995 Age: 25 [...] floor. Vikki Weber MD Internal Medicine Resident [facility] 08/01/2020 11:35 AM * Edi Latham MD - 08/01/2020 11:29 AM EST Critical Care Team - Daily Progress Note Date and time: 08/01/2020 11:29 AM Patient's name: Douglas Sousa Patient's account/billing number: [id number] Patient's Date of : 1995 Age: 25 [...] Date 08/01/20 0000 - 08/01/20 2359 Shift [id number] 6664-3384 1520-6295 24 Hour Total INTAKE P.O.(mL/kg/hr) 400(0.8) 500 [...] HCO3 12.9 Lab Results Component Value Date [id number] 14 07/30/2020 FIO2 35.0 07/30/2020 Lactic Acid: [...] No results for input(s): LABIRON, TIBC, FERRITIN, [id number], FOLATE, OCCULTBLD in the last 72 hours. [...] access Vikki Weber MD Internal Medicine Resident [facility] 08/01/2020 11:34 AM Attending Physician Statement I [...] this chart was generated using voice recognition [employer] dictation software. Although every effort was made to ensure the accuracy of this automated bakery manager, some errors in bakery manager may have occurred. * Edi Latham MD - 07/31/2020 8:37 AM EST Critical Care Team - Daily Progress Note Date and time: 07/31/2020 8:43 AM Patient's name: Douglas Sousa Patient's account/billing number: [id number] Patient's Date of : 1995 Age: 25 [...] Date 07/31/20 0000 - 07/31/20 2359 Shift 9882-3581 8487-7048 5842-5419 24 Hour Total INTAKE I.V.(mL/kg) 1058(18.5) 1062.4(18.6) [...] HCO3 12.9 Lab Results Component Value Date [id number] 14 07/30/2020 FIO2 35.0 07/30/2020 Lactic Acid: [...] No results for input(s): LABIRON, TIBC, FERRITIN, [id number], FOLATE, OCCULTBLD in the last 72 hours. [...] M.D. Department of Internal Medicine/ Critical care [facility]) 07/31/2020, 8:43 AM Attending Physician Statement [...] this chart was generated using voice recognition [employer] dictation software. Although every effort was made to ensure the accuracy of this automated bakery manager, some errors in bakery manager may have occurred. * Chela Vazquez MD - 07/30/2020 9:09 AM EST Critical Care Team - Daily Progress Note Date and time: 07/30/2020 9:09 AM Patient's name: Douglas Sousa Patient's account/billing number: [id number] Patient's Date of : 1995 Age: 25 [...] Date 07/30/20 0000 - 07/30/20 2359 Shift 4200-1241 7834-5361 6634-6899 24 Hour Total INTAKE I.V.(mL/kg) 2655(49.6) 2655(49.6) [...] HCO3 12.9 Lab Results Component Value Date [id number] 14 07/30/2020 FIO2 35.0 07/30/2020 Lactic Acid: [...] No results for input(s): LABIRON, TIBC, FERRITIN, VOQFXDIS89, FOLATE, OCCULTBLD in the last 72 hours. [...] M.D. Department of Internal Medicine/ Critical care [facility]) 07/30/2020, 9:09 AM Associated attestation - Stan [...] Diagnosis DKA, type 1, not at goal ([facility]) Type I (juvenile type) diabetes mellitus with ketoacidosis, uncontrolled Reason for Referral Specialty Diagnoses / Procedures Referred By Contac t Referred To Contact Procedures Discharge Follow-Up Ronal Logan MD [address] [place] [address], [address] [place] [address] Referral ID Status Reason Start Date Expiration Date V isits Requested Visits Authorized [id number] Pending Review 07/04/2023 07/03/2024 1 1 Specialty Diagnoses / Procedures Referred By Contac t Referred To Contact Diagnoses Diabetic ketoacidosis without coma associated with type 1 diabetes mellitus ([facility]) Procedures Follow-up with primary care provider Ronal Logan MD [address] [place] [address], [address] [place] [address] Referral ID Status Reason Start Date Expiration Date V isits Requested Visits Authorized [id number] Pending Review 07/04/2023 07/03/2024 1 1 Specialty Diagnoses / Procedures Referred By Contac t Referred To Contact Procedures No dressing needed Ronal Logan MD [address] [place] [address], [address] [place], [place] [id number] Referral ID Status Reason Start Date Expiration Date V isits Requested Visits Authorized [id number] Pending Review 07/04/2023 07/03/2024 1 1 Specialty Diagnoses / Procedures Referred By Contac t Referred To Contact Procedures Adult diet Ronal Logan MD [address] [place] [address], [address] [place], [place] [phone] Referral ID Status Reason Start Date Expiration Date V isits Requested Visits Authorized [id number] Pending Review 07/04/2023 07/03/2024 1 1 Additional Source Comments INFORMATION SOURCE (unrecogn ized section and content) DATE CREATED AUTHOR 07/08/[address] [facility] DATE CREATED AUTHOR AUTHOR'S ORGANIZ ATION 06/14/2020 [facility] DATE CREATED AUTHOR AUTHOR'S ORGANIZ ATION 08/02/2020 [facility] DATE CREATED AUTHOR AUTHOR'S ORGANIZ ATION 09/18/2022 [facility] DATE CREATED AUTHOR AUTHOR'S ORGANIZ ATION 04/02/2023 [facility] DATE CREATED AUTHOR AUTHOR'S ORGANIZ ATION 07/03/2023 [facility] DATE CREATED AUTHOR AUTHOR'S ORGANIZ ATION 07/06/2023 [facility] DATE CREATED AUTHOR AUTHOR'S ORGANIZ ATION [facility] Reason for Visit (unrecogniz ed section and content) Status Reason Specialty Diagnoses / Procedures Referre d By Contact Referred To Contact Diagnoses DKA, type 1, not at goal (HCC) DKA Status Reason Specialty Diagnoses / Procedures Referre d By Contact Referred To Contact Diagnoses DKA, type 1, not at goal (HCC) DKA Stan Perez MD [address] [place] [address] [facility] Specialty Diagnoses / Procedures Referred By Contac t Referred To Contact Diagnoses DKA (diabetic ketoacidosis) ([facility]) Tachycardia 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 (Family); System, Provider Not In (Referring) Perpetual Assessment: Douglas Cordova is a 25 y.o. female patient of No primary care provider on file. with history of DM1 presented with hyperglycemia. Impression and Plan: DKA from [facility], non compliance with her home insulin On [...] much information when asked. Per report from [facility] in [place] stated patient stopped taking her insulin 3 [...] Cordova Date of : 1995 Sex: Female Chocolate Production Machine Operator f2f with patient. Patient reports she is linked with an police officer crime prevention and a primary care physician. She will speak with them about changing insulin if needed. Chocolate Production Machine Operator did speak with patient about ride home, explained she can have ambulette transportation but has to have discharge orders in. Patient denied other needs. Associated Order(s): IP CONSULT TO SUPERVISOR TILE AND MOTTLE Reviewed lab results: Blood sugar trends: 103-517 [...] take care of her. 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 Medications: Levemir 12 units [...] She states she has an appointment in [facility]. 2. Patient verbalizes that she will take [...] type 1. Pt found in DKA from [facility] d/t non-compliance with her home insulin, hypoPO4, [...] 0.9 % Lisa Moore RD, LD Office: [phone] documented in this encounter Plan of Care [...] Goal: Knowledge of Enviroment Outcome: Partially Met [id number] N95 goggles gloves Pt not wearing a [...] Comment: bs 149, order placed by [place] police officer crime prevention) insulin glargine (LANTUS, SEMGLEE) injection pen 20 [...] Anurag Shipman RN)0713 (Rate/Dose Change - Provider: Anurga Shipman RN)0716 (Stop Bag - Provider: Anurag [...] to dextrose-containing formulation, DO NOT change to shp-qpwnymlz-lsnatzqifm IV fluid if blood glucose exceeds 250 [...] Félix Hamlin RN)1117 (Rate/Dose Verify - Provider: Fléix Hamlin RN) sodium phosphate 20 mmol in [...] Care Teams (unrecognized sec tion and content) Core Dipper Relationship Specialty Start Date End Date Arcadio Iglesias MD [address] [place] [address] PCP - General Family Medicine 06/10/23 FOR [...] BE BASED ON THE PRIMARY CLINICAL RECORDS. [employer] provides no warranty or guarantee of the accuracy or completeness of information in this document.
--- NOTE | 2023-07-14 10:04 | P.HP_ITS ---
H&P: HPI History of Present Illness Chief complaint: Hyperglycemia Narrative: 28 y o female with T1 DM was pulled over by sample wrapper for tags last evening. She reported to police officers that she is feeling weak, nauseous and tired who brought her to ED. Her work up in ED was consistent with mild DKA and she was admitted for management of her DKA. Patient was given aggressive IV hydration but never given received IV insulin and was managed with SQ insulin. Her BMP from morning labs - show improvement in metabolic acidosis and narrowing anion gap. She reports feeling better but still weak, tired. Review of Systems ROS Status of ROS 10 or more systems reviewed and unremark able except as noted in history and below [facility] Medical History (Updated 07/14/23 @ 10:08 by Shaikh Carlene MD) DKA (diabetic ketoacidosis) ?E11.10 - Type 2 diabetes mellitus with ketoacidosis without coma (ICD-10) Diabetes 1.5, managed as type 1 ?E13.9 - Other specified diabetes mellitus without complications (ICD-10) Surgical History (Updated 07/14/23 @ 02:09 by Erika Ruffin RN) Previous section ?Z98.891 - History of uterine scar from previous surgery (ICD-10) Social History Smoking status: Former smoker Highest level of school completed/degree received: high school graduate Meds Home Medications and Allergies Home Medications Medication Instructions Recorded Confirmed Type dextroamphetamine-amphetamine 30 30 mg PO DAILY 07/14/23 07/14/23 History mg tablet dextroamphetamine-amphetamine ER 30 mg PO DAILY 07/14/23 07/14/23 History 30 mg 24hr capsule,extend release gabapentin 800 mg tablet 800 mg PO TID 07/14/23 07/14/23 History insulin glargine 100 unit/mL (3 unit subcut 07/14/23 History mL) subcutaneous pen (Lantus Solostar U-100 Insulin) insulin lispro 100 unit/mL 100 unit continuous subcutaneous 07/14/23 07/14/23 History subcutaneous solution (Humalog infusion Q24H U-100 Insulin) Allergies Allergy/AdvReac Type Severity Reaction Status Date / Time Penicillins Allergy Severe Anaphylaxis Verified 07/13/23 20:54 Exam Constitutional Vital Signs, click to edit/add: Last Vital Signs Temp 98 F 07/14/23 00:00 Pulse 82 07/14/23 10:00 Resp 16 07/14/23 08:00 BP 124/75 07/14/23 07:17 Pulse Ox 93 L 07/14/23 07:30 O2 Del Method Room Air 07/14/23 08:49 Documenting provider has reviewed patient's vital signs: yes Common normals: no apparent distress and oriented x3 General appearance: cooperative Respiratory Common normals: normal respiratory effort and clear to auscultation bilaterally Effort & inspection: able to speak in complete sentences Auscultation: clear to auscultation bilaterally Cardio Common normals: regular rate, S1 normal heart sound and S2 normal heart sound Rate: regular rate Heart sounds: S1 normal and S2 normal GI Common normals: Normal to inspection, nondistended, normoactive bowel sounds present, soft to palpation, non-tender and no hepatosplenomegaly Palpation: soft and no hepatosplenomegaly Extremity Common normals: no clubbing, cyanosis or edema Neuro Common normals: oriented x3, moves all extremities and no focal motor deficits Psych Common normals: mental status grossly normal, denies hallucinations, denies homicidal ideation and denies suicidal ideation Results Labs Labs: Short CBC 07/13/23 07/14/23 Range/Units 16:00 04:32 WBC 12.2 H 13.2 H (4.0-11.0) 10^3/uL Hgb 11.5 L 10.1 L (12.0-16.0) g/dL Hct 38.4 32.3 L (36.0-48.0) % Plt Count 455 H 419 (150-450) 10^3/uL BMP 07/13/23 07/13/23 07/14/23 16:00 20:14 01:07 Sodium 128 L 127 L 131 L Potassium 4.0 4.2 3.7 Chloride 95 L 99 103 Carbon Dioxide 7.8 L 6.3 L 9.6 L BUN 12.0 9.0 10.0 Creatinine 0.99 0.79 0.67 Glucose 482 H 366 H 339 H Calcium 7.7 L 6.4 L 7.0 L 07/14/23 04:32 Sodium 133 L Potassium 3.3 L Chloride 103 Carbon Dioxide 16.0 L BUN 10.0 Creatinine 0.68 Glucose 252 H Calcium 7.3 L Liver Function 07/13/23 07/14/23 Range/Units 16:00 04:32 Total Bilirubin 0.3 0.2 (0.2-1.0) mg/dL AST 10 L <5 L (15-37) U/L ALT 19 14 (14-59) U/L Alkaline Phosphatase 107 82 (46-116) U/L Albumin 3.2 L 2.5 L (3.4-5.0) g/dL Urine 07/13/23 Range/Units 16:45 Urine Color Lt. yellow (YELLOW) Urine Clarity Clear (CLEAR) Urine pH 5.5 (5.0-9.0) Ur Specific [place] 1.025 (1.005-1.025) Urine Protein Negative (NEG/TRACE) mg/dL Urine Glucose (UA) >=1000 A (NEGATIVE) mg/dL ABG ABG results: 07/13/23 17:29 VBG pH 7.064 L VBG pCO2 19.3 L Assessment and Plan Assessment and Plan (1) DKA, type 1: Assessment and Plan: Presented with DKA - started on IVF and treated with SQ insulin. Improving slowly. C/w IVF, close monitoring of her blood glucose. Possible discharge tomorrow once gap is closed, remains closed and her blood glucose remains well controlled. Patient has insulin pump and supplies that she picked up last evening and that's when she was pulled over by sample wrapper. Qualifiers: Diabetes mellitus complication detail: without coma Qualified Code(s): E10.10 - Type 1 diabetes mellitus with ketoacidosis without coma (2) Medical non-compliance: Assessment and Plan: Multifactorial and complicated by substance abuse. She is also homeless right now and does not have a place to go Educated on importance of compliance and how non compliance with her insulin could potentially be fatal for her. (3) Substance abuse: Assessment and Plan: Uses methamphetamine. Patient expressing wishes to go to rehab facility for substance abuse where she got cleaned/sober previously. pest control worker helper will reach out and find out if they will accept her. Plan C/w IVF, monitor electrolytes, blood glucose, c/w SQ insulin. Gap still not closed. Needs continued hospital stay for management of her DKA.
--- NOTE | 2023-07-14 10:38 | CM.NOTE ---
Rounds made with Dr. Concepcion, discussed with pt discharge planning. Pt does have insulin pump and she also has the insulin for pump. Pt states she had let her insulin run out for a short time but then picked up insulin at pharmacy on 07/13. Pt does verbalize she was picked up by the police yesterday and they impounded her vehicle d/t plates. They transported pt here to hospital d/t she wasn't feeling well d/t elevated BS. Pt was living in vehicle but now is homeless d/t her vehicle being impounded. Pt still would like an inpatient drug rehab or to find a homeless long-term. rn support services is now working with pt on discharge plan.
[2023-07-14 12:26] LABS: Glucometer 339 mg/dL (74-106)
[2023-07-14] MEDS: SODIUM CHLORIDE 0.45 % 1,000 ML 100 ML IV (13:56)
--- NOTE | 2023-07-14 13:58 | SWNOTE1 ---
SW attempted to call [facility] in [place], they are permanetly closed. ARACELI spoke with pt and she would like SW to attempt to get her in to [facility] at discharge. SW to call.
--- NOTE | 2023-07-14 14:13 | SWNOTE1 ---
Referral sent to ARACELI Carrillo spoke with Tiki in admissions.
[2023-07-14 14:38] LABS: Anion Gap 11.9; BUN Creatinine Ratio 12.2; Calcium 7.3 mg/dL (8.5-10.1); Carbon Dioxide 21.6 mmol/L (21.0-32.0); Chloride 100 mmol/L (98-107); Estimated GFR (African America >60 (>=60); Estimated GFR (Non-African Ame >60 (>=60); Glucose 373 mg/dL (74-106); Potassium 3.5 mmol/L (3.5-5.1); Sodium 130 mmol/L (136-145)
--- NOTE | 2023-07-14 16:10 | SWNOTE1 ---
[facility] is able to accept, they did ask about her insulin and if it has been collaborated. SW spoke with nurse and director case management and they spoke with pt in room. Nurse reaching out to doctor. SW and pt called Tiki at [facility] together and they completed assessment with pt. Pt and SW asked [facility] if they are able to help pt get her clothing from her car that has been impounded. Tiki stated pt will have a community case manager at [facility] and they will assist. SW to call and update Tiki tomorrow in regards to discharge.
[2023-07-14] MEDS: LACTATED RINGER'S SOLUTION 1,000 ML 100 ML IV (16:19)
[2023-07-14] MEDS: INSULIN DETEMIR 300 UNIT/3 ML INSULN.PEN 20 UNIT SUBQ (22:29)
[2023-07-14 22:32] LABS: Glucometer 391 mg/dL (74-106)
[2023-07-15] VITALS (15 sets, daily range): BP systolic 123–142; BP diastolic 84–92; PULSE 77–112; RESP 1–29; TEMP 36.3–36.8; O2SAT 91–98
[2023-07-15] MEDS: LACTATED RINGER'S SOLUTION 1,000 ML 100 ML IV (02:27)
[2023-07-15 05:48] LABS: Basophils Percent Auto 0.4 % (0.2-2.0); Eosinophils Absolute Auto 0.1 10^3/uL (0.0-0.7); Eosinophils Percent Auto 0.6 % (0.9-7.0); Hematocrit 34.1 % (36.0-48.0); Hemoglobin 10.8 g/dL (12.0-16.0); Immature Granulocytes Abs Auto 0.05 10^3/uL (0.00-0.03); Immature Granulocytes Pct Auto 0.5 % (0.0-0.5); Lymphocytes Absolute Auto 2.6 10^3/uL (1.2-3.8); Lymphocytes Percent Auto 23.7 % (20.5-60.0); Mean Corpuscular HGB Conc 31.7 g/dL (29.9-35.2); Mean Corpuscular Hemoglobin 25.2 pg (26.7-34.0); Mean Corpuscular Volume 79.5 fL (81.0-99.0); Mean Platelet Volume 8.9 fL (9.5-13.5); Monocytes Absolute Auto 0.6 10^3/uL (0.3-0.8); Monocytes Percent Auto 5.9 % (1.7-12.0); Neutrophils Absolute Auto 7.4 10^3/uL (1.4-6.5); Neutrophils Percent Auto 68.9 % (43.0-75.0); Platelet Count 357 10^3/uL (150-450); Red Blood Count 4.29 10^6/uL (4.20-5.40); Red Cell Distribution Width 14.3 % (11.0-15.0); White Blood Count 10.8 10^3/uL (4.0-11.0)
[2023-07-15 06:23] LABS: Alanine Aminotransferase 13 U/L (14-59); Albumin Globulin Ratio 0.7; Albumin Level 2.5 g/dL (3.4-5.0); Alkaline Phosphatase 77 U/L (46-116); Anion Gap 13.6; Aspartate Amino Transferase 6 U/L (15-37); BUN Creatinine Ratio 22.8; Bilirubin Total 0.1 mg/dL (0.2-1.0); Calcium 7.9 mg/dL (8.5-10.1); Carbon Dioxide 23.3 mmol/L (21.0-32.0); Chloride 105 mmol/L (98-107); Estimated GFR (African America >60 (>=60); Estimated GFR (Non-African Ame >60 (>=60); Globulin 3.5 g/dL; Glucose 163 mg/dL (74-106); Sodium 139 mmol/L (136-145)
[2023-07-15 06:51] LABS: Potassium 2.9 mmol/L (3.5-5.1)
[2023-07-15 08:01] LABS: Glucometer 80 mg/dL (74-106)
[2023-07-15] MEDS: POTASSIUM CHLORIDE 40 MEQ in 0.9 % SODIUM CHLORIDE 250 ML 67.5 MEQ IV (08:53)
--- NOTE | 2023-07-15 09:58 | P.DS_ITS ---
DS: Providers Provider Date of admission: 07/13/23 19:35 Primary care physician: Arcadio Luna MD Attending physician on discharge: Shaikh Carlene Discharging clinician: Shaikh Carlene Anticipated date of discharge: 07/15/23 DS: Diagnosis Discharge Diagnosis (1) DKA, type 1: Assessment and plan: Resolved. Now on insulin pump - doing well. Qualifiers: Diabetes mellitus complication detail: without coma Qualified Code(s): E10.10 - Type 1 diabetes mellitus with ketoacidosis without coma (2) Medical non-compliance: Assessment and plan: Educated and counseled on importance of compliance. (3) Substance abuse: Assessment and plan: Counseled on substance abuse. Patient will be discharged to rehab DS: Summary Hospital Course Hospital Course: 28 y o female with T1 DM was brought over by exploration manager for feeling weak, nauseous and tired.Her work up in ED was consistent with mild DKA and she was admitted for management of her DKA. Patient was given aggressive IV hydration but never given received IV insulin and was managed with SQ insulin. Her AG closed last afternoon and he was transitioned to insulin pump to make sure she continues to do well. Patient seen this morning. No active complaints to offer. Stable for discharge - she will go to rehab facility for substance abuse. Counseled and educated on compliance, substance abuse. Status at Discharge Functional status at discharge: independent ambulation Overall status at discharge: patient is back to baseline Time Spent with Patient Time attestation: Total time spent providing and/or coordinating discharge services: Time spent: greater than 30 minutes Exam Constitutional Vital Signs, click to edit/add: Last Vital Signs Temp 97.4 F L 07/15/23 09:00 Pulse 87 07/15/23 09:00 Resp 16 07/15/23 08:00 BP 142/88 H 07/15/23 05:00 Pulse Ox 91 L 07/15/23 07:00 O2 Del Method Room Air 07/15/23 05:00 Documenting provider has reviewed patient's vital signs: yes Common normals: no apparent distress and oriented x3 General appearance: cooperative Respiratory Common normals: normal respiratory effort and clear to auscultation bilaterally Effort & inspection: able to speak in complete sentences Auscultation: clear to auscultation bilaterally Cardio Common normals: regular rate, S1 normal heart sound and S2 normal heart sound Rate: regular rate Heart sounds: S1 normal and S2 normal GI Common normals: Normal to inspection, nondistended, normoactive bowel sounds present, soft to palpation, non-tender and no hepatosplenomegaly Palpation: soft and no hepatosplenomegaly Extremity Common normals: no clubbing, cyanosis or edema Neuro Common normals: oriented x3, moves all extremities and no focal motor deficits Psych Common normals: mental status grossly normal, denies hallucinations, denies homicidal ideation and denies suicidal ideation DS: Data Data Completed and Pending Labs on day of discharge: Labs from last 24 hours 07/15/23 07/15/23 07/14/23 08:00 05:33 22:27 WBC 10.8 RBC 4.29 Hgb 10.8 L Hct 34.1 L MCV 79.5 L MCH 25.2 L MCHC 31.7 RDW 14.3 Plt Count 357 MPV 8.9 L Neut % (Auto) 68.9 Lymph % (Auto) 23.7 [place] % (Auto) 5.9 Eos % (Auto) 0.6 L Baso % (Auto) 0.4 Neut # (Auto) 7.4 H Lymph # (Auto) 2.6 [place] # (Auto) 0.6 Eos # (Auto) 0.1 Baso # (Auto) 0.0 Abs Immat Gran (auto) 0.05 H Imm/Tot Granulo (auto) 0.5 Sodium 139 Potassium 2.9 L* Chloride 105 Carbon Dioxide 23.3 Anion Gap 13.6 BUN 13.0 Creatinine 0.57 Est GFR ( Amer) >60 Est GFR (Non-Af Amer) >60 BUN/Creatinine Ratio 22.8 Glucose 163 H Calcium 7.9 L Total Bilirubin 0.1 L AST 6 L ALT 13 L Alkaline Phosphatase 77 Total Protein 6.0 L Albumin 2.5 L Globulin 3.5 Albumin/Globulin Ratio 0.7 POC Glucose 80 391 H 07/14/23 07/14/23 14:22 12:15 WBC RBC Hgb Hct MCV MCH MCHC RDW Plt Count MPV Neut % (Auto) Lymph % (Auto) [place] % (Auto) Eos % (Auto) Baso % (Auto) Neut # (Auto) Lymph # (Auto) [place] # (Auto) Eos # (Auto) Baso # (Auto) Abs Immat Gran (auto) Imm/Tot Granulo (auto) Sodium 130 L Potassium 3.5 Chloride 100 Carbon Dioxide 21.6 Anion Gap 11.9 BUN 10.0 Creatinine 0.82 Est GFR ( Amer) >60 Est GFR (Non-Af Amer) >60 BUN/Creatinine Ratio 12.2 Glucose 373 H Calcium 7.3 L Total Bilirubin AST ALT Alkaline Phosphatase Total Protein Albumin Globulin Albumin/Globulin Ratio POC Glucose 339 H Discharge Plan Discharge Disposition: Xfer Inpatient Rehab Fac Discharge Medications: Continued dextroamphetamine-amphetamine 30 mg capsule,extended release 24hr 30 mg PO DAILY gabapentin 800 mg tablet 800 mg PO TID insulin lispro [Humalog U-100 Insulin] 100 unit/mL solution 100 unit continuous subcutaneous infusion Q24H Rx Instructions: VIA INSULIN PUMP Discontinued dextroamphetamine-amphetamine 30 mg tablet 30 mg PO DAILY insulin glargine [Lantus Solostar U-100 Insulin] 100 unit/mL (3 mL) insulin pen SUBCUT Forms: Portal Instructions Follow Up Appointments: F/u with PCP in one week
--- NOTE | 2023-07-15 10:10 | CM.NOTE ---
Rounds made with heather Love for pt to discharge to [facility] today.
--- NOTE | 2023-07-15 10:34 | SWNOTE1 ---
Pt is ready for discharge today. ARACELI called [facility] to see what else was needed, they just need to know time of transport. ARACELI spoke with director of case management to see if we can set up trips. SW to find out why [facility] can't transport. ARACELI spoke with Tiki in admissions at [facility] to see why. Tiki voiced she was not aware of any agreement in regards to transport. She stated her transport person was heading to [place] and had 3 stops there and then he could get her on way back. It may be several hours. ARACELI let director of our case managment know and she gave the ok for trips to transport. ARACELI called and set up trips and they will be here between 11:30-12:00. ARACELI let nursing and [facility] know. Packet is ready.
--- NOTE | 2023-07-15 14:38 | NUTR.NU ---
Visited with pt prior to her discharge re diabetic diet guidelines. Pt is A&O, pleasant, states she is familiar with guidelines and does not have need for further education at this time.
== END 2023-07-15 11:50 ==
LOC: ER 17:25 → ICU 07-14 08:56
PROVIDERS: Admitting Provider Internal Medicine; Emergency Provider Emergency Medicine; PCP Family Medicine; Visit Provider Internal Medicine
DX: E10.10 Type 1 diabetes mellitus with ketoacidosis without coma (principal); Z91.199 Patient's noncompliance with other medical treatment and regimen due to unspecified reason; F15.10 Other stimulant abuse, uncomplicated; E83.42 Hypomagnesemia; Z87.891 Personal history of nicotine dependence; Z59.00 Homelessness unspecified; Z98.891 History of uterine scar from previous surgery; Z79.4 Long term (current) use of insulin; Z96.41 Presence of insulin pump (external) (internal)
CPT/HCPCS: 36415; 36569; 80048; 80053; 80307; 81001; 82800; 82948; 83605; 83735; 84100; 84703; 85025; 93005; 96365; 96366; 96367; 96376; 99285; C1887; G0378; J3475; J3480

== ENCOUNTER 2024-03-24 11:47 | Outpatient (OUT) | payer OTHER, SELFPAY ==
--- NOTE | 2024-03-24 11:53 | XR_ITS ---
The [address] [address] Patient Name: RUDDY CORDOVA MRN: [id number] date: 1995 Sex: F Assigned Patient Location: [facility] Current Patient Location: Accession/Order Number: [id number] Exam Date: 03/24/2024 11:55 Report Date: 03/26/2024 06:22 At the request of: MELY RUVALCABA Procedure: XR foot RT min 3V PROCEDURE: XR foot RT min 3V HISTORY: Right Foot Pain M79.671 ; acute lateral right foot pain since falling one week ago COMPARISON: None. FINDINGS: BONES:Acute transverse fracture through base of 5th metatarsal with intra-articular extension at its most medial margin. SOFT TISSUES:Mild soft tissue swelling. EFFUSION:None visible. OTHER: Negative. XR/XR foot RT min 3V IMPRESSION: 1. Nondisplaced, acute base of 5th metatarsal fracture. Electronically authenticated by: MONISHA MALDONADO Date: 03/26/2024 06:22
== END 2024-03-24 11:48 | disposition home or self-care (01) ==
LOC: RAD 11:49
PROVIDERS: PCP Nurse Practitioner; Visit Provider Nurse Practitioner
DX: M79.671 Pain in right foot (principal); S92.354A Nondisplaced fracture of fifth metatarsal bone, right foot, initial encounter for closed fracture
CPT/HCPCS: 73630

== ENCOUNTER 2024-05-27 08:44 | Emergency (ER) | payer OTHER, SELFPAY ==
[2024-05-27] VITALS (15 sets, daily range): BP systolic 125–151; BP diastolic 75–82; PULSE 96–123; TEMP 36.4; O2SAT 92–100
--- NOTE | 2024-05-27 08:31 | XR_ITS ---
The [address] [address] Patient Name: RUDDY CORDOVA MRN: [id number] date: 1995 Sex: F Assigned Patient Location: ER Current Patient Location: ER Accession/Order Number: [id number] Exam Date: 05/27/2024 09:55 Report Date: 05/27/2024 10:32 At the request of: FABI FIGUEROA Procedure: XR chest 1V EXAMINATION: XR chest 1V HISTORY: Diabetic, vomiting COMPARISON: XR chest 07/02/2023 FINDINGS: LUNGS: Mild opacities within lateral lung bases. VASCULATURE: No increased pulmonary vasculature. PLEURA: No pneumothorax, effusion, or pleural thickening. CARDIAC: No cardiomegaly or cardiac silhouette abnormality. MEDIASTINUM: No visible mass or adenopathy. BONES: No fracture or visible bone lesion. OTHER: Negative. XR/XR chest 1V IMPRESSION: 1. Mild bibasilar atelectasis versus infiltrates; new compared to prior study. Electronically authenticated by: MONISHA MALDONADO Date: 05/27/2024 10:32
--- NOTE | 2024-05-27 08:31 | ECG_ITS ---
The 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
--- NOTE | 2024-05-27 08:32 | ED_ITS ---
HPI HPI - General Adult General Chief complaint: Nausea/Vomiting/Diarrhea Stated complaint: NAUSEA/VOMITING Time Seen by Provider: 05/27/24 08:50 Source: patient Mode of arrival: ambulance Limitations: no limitations History of Present Illness HPI narrative: 28-year-old female presents to the emergency department for vomiting and not feeling well. It began last night. She has a history of diabetes and thinks she might be in DKA. She states she took her insulin yesterday. She was given IM Zofran by the paramedics en route to the hospital. No history of fever. Related Data Home Medications ?Medication ?Instructions ?Recorded ?Confirmed dextroamphetamine-amphetamine ER 30 mg PO DAILY 07/14/23 07/14/23 30 mg 24hr capsule,extend release gabapentin 800 mg tablet 800 mg PO TID 07/14/23 07/14/23 insulin lispro 100 unit/mL 100 unit continuous subcutaneous 07/14/23 07/14/23 subcutaneous solution (Humalog infusion Q24H U-100 Insulin) Allergies Allergy/AdvReac Type Severity Reaction Status Date / Time Penicillins Allergy Severe Anaphylaxis Verified 07/13/23 20:54 Opioid HPI Opioid Management Most Recent Opioid Data: Ur Phencyclidine Scrn Negative (NEGATIVE) 07/13/23 16:45 06/30 10/21 Review of Systems ROS Narrative A ten point review of systems is negative except as noted above. 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 General: The patient appears uncomfortable. She is retching into an emesis basin. Skin: Warm, dry, no pallor noted. There is no rash noted. Head: Normocephalic, atraumatic Eye: Normal conjunctiva, no drainage Ears, Nose, Mouth, and Throat: oral mucosa is somewhat dry. Nares patent. Cardiovascular: Regular Rate and Rhythm Respiratory: Patient is in no distress, no accessory muscle use, lungs are clear to auscultation, no wheezing, rales or rhonchi Back: non-tender GI: No distention or rebound. Musculoskeletal: The patient has no evidence of calf tenderness, no pitting edema, symmetrical pulses noted bilaterally Neurological: A&O, normal speech Psychiatric: Cooperative Constitutional Vital Signs, click to edit/add: Last Vital Signs Temp 97.6 F 05/27/24 08:29 Pulse 99 H 05/27/24 08:29 Resp 18 05/27/24 08:29 BP 126/75 05/27/24 08:29 Pulse Ox 92 L 05/27/24 08:29 O2 Del Method Room Air 05/27/24 08:29 Course Vital Signs Vital signs: Vital Signs Temperature 97.6 F 05/27/24 08:29 Pulse Rate 99 H 05/27/24 08:29 Respiratory Rate 18 05/27/24 08:29 Blood Pressure 126/75 05/27/24 08:29 Pulse Oximetry 92 L 05/27/24 08:29 Oxygen Delivery Method Room Air 05/27/24 08:29 Temperature 97.6 F 05/27/24 08:29 Pulse Rate 99 H 05/27/24 08:29 Respiratory Rate 18 05/27/24 08:29 Blood Pressure 126/75 05/27/24 08:29 Pulse Oximetry 92 L 05/27/24 08:29 Oxygen Delivery Method Room Air 05/27/24 08:29 Medical Decision Making MDM Narrative Medical decision making narrative: DKA is identified. VBG pH is 6.999. She was given IV fluids and IV insulin and placed on an insulin drip and is being admitted. Findings are discussed with the patient. Blood cultures were obtained and the urinalysis is pending. Differential Diagnosis Differential Diagnosis: DKA, pneumonia, dehydration, hyperglycemia Medical Records Medical records reviewed: Yes I reviewed the patient's medical records Lab Data Lab results reviewed: Yes I reviewed the patient's lab results Labs: Lab Results 05/27/24 05/27/24 Range/Units 08:28 08:34 WBC 25.5 H (4.0-11.0) 10^3/uL RBC 5.09 (4.20-5.40) 10^6/uL Hgb 13.4 (12.0-16.0) g/dL Hct 42.0 (36.0-48.0) % MCV 82.5 (81.0-99.0) fL MCH 26.3 L (26.7-34.0) pg MCHC 31.9 (29.9-35.2) g/dL RDW 12.6 (11.0-15.0) % Plt Count 393 (150-450) 10^3/uL MPV 10.2 (9.5-13.5) fL Seg Neuts % (Manual) 89.0 H (43.0-75.0) Band Neutrophils % 4.0 (0-5) % Lymphocytes % (Manual) 4.0 L (20.5-60.0) % Monocytes % (Manual) 2.0 (1.7-12.0) % Eosinophils % (Manual) 0.0 L (0.9-7.0) % Basophils % (Manual) 1.0 (0.2-2.0) % Neutrophils # (Manual) 22.69 H (1.4-6.5) 10^3/uL Band Neutrophils # 1.0 H (0.0-0.3) 10^3/uL Lymphocytes # (Manual) 1.02 L (1.20-3.80) 10^3/uL Monocytes # (Manual) 0.51 (0.30-0.80) 10^3/uL Eosinophils # (Manual) 0.00 (0.00-0.70) 10^3/uL Basophils # (Manual) 0.25 H (0.00-0.10) 10^3/uL Anisocytosis 1+ Ovalocytes 1+ VBG pH 6.999 L (7.330-7.430) VBG pCO2 26.4 L (40.0-52.0) mmHg Sodium 141 (136-145) mmol/L Potassium 4.5 (3.5-5.1) mmol/L Chloride 101 (98-107) mmol/L Carbon Dioxide 6.7 L (21.0-32.0) mmol/L Anion Gap 37.8 BUN 23.0 H (7.0-18.0) mg/dL Creatinine 1.29 H (0.55-1.02) mg/dL Est GFR ( Amer) 59 L (>=60 mL/min/1.73m^2) Est GFR (Non-Af Amer) 49 L (>=60 mL/min/1.73m^2) BUN/Creatinine Ratio 17.8 Glucose 434 H (74-106) mg/dL Calcium 8.7 (8.5-10.1) mg/dL Serum HCG, Qual Negative (NEGATIVE) Acetone, Qual Small A (NEGATIVE) POC Glucose 439 H (74-106) mg/dL Imaging Data Chest x-ray: My impression: No acute finding ECG Data Attestation: I personally reviewed and interpreted this ECG as follows: (EKG on my interpretation shows sinus rhythm with a rate of 100.) Critical Care Time Critical Care Time Critical Care Time: Yes Total Critical Care Time: 40 Attestation: Due to the high probability of sudden and clinically significant deterioration in the patient's condition he/she required the highest level of my preparedness to intervene urgently I provided critical care time including documentation time, medication orders and management, reevaluation, vital sign assessment, ordering and reviewing of lab tests, ordering and reviewing of x-ray studies, and admission orders. Aggregate critical care time is 40 minutes including only time during which I was engaged in work directly related to his/her care and did not include time spent treating other patients simultaneously. Discharge Plan Discharge Chief Complaint: Nausea/Vomiting/Diarrhea Clinical Impression: DKA (diabetic ketoacidosis) Patient Disposition: Admitted As Inpatient Time of Disposition Decision: 10:11 Condition: Fair
[2024-05-27 08:36] LABS: Glucometer 439 mg/dL (74-106)
[2024-05-27 08:45] LABS: Hemoglobin 13.4 g/dL (12.0-16.0); Mean Corpuscular HGB Conc 31.9 g/dL (29.9-35.2); Mean Corpuscular Hemoglobin 26.3 pg (26.7-34.0); Mean Corpuscular Volume 82.5 fL (81.0-99.0); Mean Platelet Volume 10.2 fL (9.5-13.5); Platelet Count 393 10^3/uL (150-450); Red Blood Count 5.09 10^6/uL (4.20-5.40); Red Cell Distribution Width 12.6 % (11.0-15.0); White Blood Count 25.5 10^3/uL (4.0-11.0)
[2024-05-27 08:46] LABS: PCO2 VBG 26.4 mmHg (40.0-52.0); pH VBG 6.999 (7.330-7.430)
--- OUTSIDE RECORDS SUMMARY | 2024-05-27 08:50 | XMS_ITS | CCD ---
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 Role Phone PHYSICIAN, DEFAULT Unavailable Unavailable [...] Consulting Unavailable Arcadio Iglesias Primary Care Provider [phone] KELSIE, DR ARCADIO Ballesteros Attending Unavailable NADMARIA C, DR ARCADIO Ballesteros Admitting Unavailable HOY ., DR CAMPBELL Consulting Unavailable NADMARIA C, DR ARCADIO Ballesteros Primary Care Unavailable NADEREJose, DR ARCADIO Ballesteros Consulting Unavailable FABI FIGUEROA Consulting Unavailable ROSA M MENDEZ Consulting Unavailable KELSIE, DR ARCADIO Ballesteros Primary Care Unavailable FAWDAVID, H Admitting Unavailable FAWDAVID, H Attending Unavailable KELSIE, DR ARCADIO Ballesteros Primary Care Unavailable KELSIE, DR ARCADIO Ballesteros Consulting Unavailable NADEREJose, DR ARCADIO Ballesteros Attending Unavailable NADMARIA C, DR ARCADIO Ballesteros Admitting Unavailable TALMARTIN AMEZQUITA Consulting Unavailable ARCADIO IGLESIAS Primary Care Unavailabl e AVASTHI, EDI Admitting Unavailable LINN JOHNSON Referring Unavailab RM Shetty Attending Unavailable RAD QUINN Consulting Unavailable Arcadio Iglesias MD Primary Care Provider LETTY YEE Admitting Unavailable LETTY YEE Attending Unavailable PHYSICIAN, UNKNOWN Referring Unavailable ARCADIO IGLESIAS Primary Care Unavailable MACY DREW Consulting Unavailable ASH MUNGUIA Consulting Unavailable BRYCE GAINES Consulting Unavailable NADERER, ARCADIO Primary Care Unavailable FERNANDA, MATTHEW Attending Unavailable CHAS DARDEN Referring Unavailable NADERER, ARCADIO Primary Care Unavailable NADERER, ARCADIO Referring Unavailable NADERER, ARCADIO Primary Care Unavailable NADERER, ARCADIO A Primary Care Unavailable Elmer, Maxi Admitting Unavailable Elmer, Maxi Attending Unavailable Macy Armenta Admitting Unavailable Geovany, Macy Attending Unavailable NADERER, ARCADIO A Primary Care Unavailable ANDRESSA ARNDT Admitting Unavailable ANDRESSA ARNDT Attending Unavailable NADERER, ARCADIO A Primary Care Unavailable Omley, Linn H Admitting Unavailable Omley, Linn H Attending Unavailable NADERER, ARCADIO A Primary Care Unavailable Mami Sahni L Admitting Unavailable SahniMami L Attending Unavailable NADERER, ARCADIO A Primary Care Unavailable Tari, Gustavo K Attending Unavailable NADERER, ARCADIO A Primary Care Unavailable Le, Gustavo K Admitting Unavailable Omley, Linn H Admitting Unavailable Omley, Linn H Attending Unavailable NADERER, ARCADIO A Primary Care Unavailable NADERER, ARCADIO Primary Care Unavailable KINZA JADE Attending Unavailable Tyler Gross Attending Unavailab le Renato, Tyler Admitting Unavailab le Naderer, Arcadio Primary Care Unavailable Macy Traylor MD Primary Care Provider [phone] ARCADIO IGLESIAS Attending Unavailable KENDAL SOMMERS Attending Unavailable MELY RUVALCABA Referring Unavailable KENDAL SOMMERS Referring Unavailable OMKAR, FELISA F Attending Unavailable Allergies Allergy Classification Reported Allergen(s) Allergy Type Date of Onset Reaction(s) Facility (17 sources) Penicillins; Translations: [PENICILLINS] Propensity to adverse reactions to drug 3 Anaphylaxis, Swelling [facility] (8 sources) Shellfish; Translations: [SHELLFISH DERIVED] Propensity to adverse reactions to drug 0 [facility] (3 sources) Penicillin; Translations: [penicillin] Drug Allergy [facility] (4 sources) Shellfish; Translations: [shellfish] Drug allergy (disorder) 4 [facility] (7 sources) Shellfish-Deriv ed Products Propensity to adverse reactions to drug 1 Swelling [place] (4 sources) Shellfish; Translations: [SHELLFISH CONTAINING PRODUCTS] Propensity to adverse reactions to drug 7 Anaphylaxis [facility] Medications Current Medications Medication Drug Class(es) Dates Sig (Normalized) Sig (Original) [id number] actuat albuterol 0.09 mg/actuat metered dose inhaler (8 sources) beta2-Adrenergic Agonist Start: 08-28-2023 take 2 puff(s) by inhalation every four hours for wheezing albuterol HFA 90 mcg/act inhaler Indications: Mild intermittent asthma without complication (CMS/HCC) Inhale 2 puffs every 4 (four) hours if needed for wheezing 18 g 2 08/28/2023 Active take 2 puff(s) by in halation every six hours as needed for wheezing albuterol (PROVENTIL HFA;VENTOLIN HFA) 9 0 mcg/actuation inhaler Inhale 2 puffs every 6 [...] 1 tablet by mouth in the morning dextroamphetamine-amp hetamine (ADDERALL) 30 mg tablet Take 1 tablet (30 mg total) by mouth in the morning. 0 Active take 1 capsule by mo [facility] once daily in the morning amphetamine-dextroamphetamine XR (ADDERA LL XR) 30 mg 24 hr capsule Indications: attention-deficit hyperactivity disorder Take 1 capsule (30 mg total) by mouth every morning Indications: attention deficit disorder with hyperactivity. 0 Active take 1 tablet by mitchell th once daily dextroamphetamine-amphetamine (ADDERALL) 20 mg tablet Take 20 mg by mouth daily . 0 Active carisoprodol 350 mg oral tablet (8 sources) Muscle Relaxant take 1 tablet by mouth three times daily as needed for muscle spasms carisoprodol (Soma) 350 MG tablet Take 350 mg by mouth 3 (three) times a day as needed for muscle spasms Active take 1 tablet by mitchell th four times daily as needed for muscle spasms carisoprodoL (SOMA) 350 mg tablet Indications: muscle spasm Take 1 tablet (350 mg total) by mouth 4 (four) times a day as needed for muscle spasms Indications: muscle spasm. 0 Active clobetasol propionate 0.5 mg/ml topical lotion (6 sources) Corticosteroid Start: 10-09-2023 Clobetasol Propionate 0.05 % lotion Indications: Plaque psoriasis (CMS/HCC) Apply 1 Application topically in the morning and 1 Application before bedtime. 118 mL 3 10/09/2023 Active escitalopram 5 mg oral tablet (6 sources) Serotonin Reuptake Inhibitor Start: 09-16-2023 End: 09-15-2024 take 1 tablet by mouth once daily escitalopram (Lexapro) 5 MG tablet Indications: Generalized anxiety disorder (CMS/HCC) Take 1 tablet (5 mg) by mouth Daily 30 tablet 11 09/16/2023 09/15/2024 Active gabapentin 800 mg oral tablet (8 sources) Anti-epileptic Agent Start: 10-23-2023 take 1 tablet by mouth three times daily at bedtime gabapentin (Neurontin) 800 MG tablet Indications: Fibromyalgia take 1 tablet by mouth three times a day IN THE MORNING IN THE EVENING and BEFORE BEDTIME 90 tablet 2 10/23/2023 Active take 1 tablet by mitchell th three times daily gabapentin (NEURONTIN) 800 mg tablet Favian e 1 tablet (800 mg total) by mouth 3 (three) times a day. 0 Active guanFACINE 1 mg oral tablet (6 sources) Central alpha-2 Adrenergic Agonist Start: 10-02-2023 take 1 tablet by mouth at bedtime guanFACINE (Tenex) 1 MG tablet Indications: ADD (attention deficit disorder) without hyperactivity Take 1 tablet (1 mg) by mouth at bedtime 30 tablet 3 10/02/2023 Active hydrALAZINE hydrochloride 25 mg oral tablet (2 sources) Arteriolar Vasodilator Start: 06-18-2022 hydrALAZINE (APRESOLINE) 25 mg tablet Take 2 tablets (50 mg total) by mouth every 12 (twelve) hours. 30 tablet 0 06/18/2022 Active ibuprofen 800 mg oral tablet (7 sources) Nonsteroidal Anti-inflammatory Drug Start: 10-10-2023 take 1 tablet by mouth three times daily as needed for pain ibuprofen 800 MG tablet Indications: Fibromyalgia Take 1 tablet (800 mg) by mouth 3 (three) times a day as needed for mild pain 90 tablet 3 10/10/2023 Active Start: 06-18-2022 End: 07-03-2023 take 1 tablet by mouth three times daily ibuprofen (MOTRIN) 800 mg tablet Take 1 tablet (800 mg total) by mouth 3 (three) times a day. 21 tablet 0 06/18/2022 07/03/2023 Discontinued (Therapy completed) Insulin Disposable Pump (Omnipod DASH Pods, Gen 4,) misc (6 sources) Start: 09-18-2023 Insulin Dispos able Pump (Omnipod DASH Pods, Gen 4,) misc Indications: Type 1 diabetes mellitus with hyperglycemia (HCC) (CMS/HCC) USE DIRECTED, REPLACE POD EVERY 72 HOURS 10 each 09/18/2023 Active sensor 3 ml insulin glargine 100 unt/ml pen injector (12 sources) Insulin Analog Start: 07-04-2023 End: 07-04-2023 inject 20 [IU] by subcutaneous injection in [...] 06-09-2020 insulin glargine (LANTUS) injection 15 Units 3 ml insulin lispro 100 unt/ml pen injector (18 sources) Insulin Analog Start: 04-12-2024 insulin lispro (HumaLOG) 100 UNIT/ML injection Indications: Type 1 diabetes mellitus with hyperglycemia (HCC) (CMS/HCC) INJECT 10-12-15 UNITS WITH EACH MEAL PLUS SLIDING SCALE #2 (EXPECT 60 NAIF UNITS DAILY) 4 mL 1 04/12/2024 Active Start: 04-12-2024 insulin lispro (HumaLOG) 100 UNIT/ML injection Indications: Type 1 diabetes mellitus with hyperglycemia (HCC) (CMS/HCC) INJECT 10-12-15 UNITS WITH EACH MEAL PLUS SLIDING SCALE #2 (EXPECT 60 NAIF UNITS DAILY) 4 mL 1 04/12/2024 Active Start: 09-18-2023 Insulin Lispro (HumaLOG) 100 UNIT/ML solution Indications: Type 1 diabetes mellitus with hyperglycemia (HCC) (CMS/HCC) Inject 1 each under the skin continuously 10 mL 3 09/18/2023 Active Start: 08-01-2020 insulin lispro (HUMALOG) injection vial [...] 07-04-2023 insulin lispro (HumaLOG) injection 2-8 Units lansoprazole 30 mg delayed release oral capsule (6 sources) Proton Pump Inhibitor take 1 capsule by mouth before mealtime lansoprazole (Prevacid) [address] capsule Take 30 mg by mouth in the morning. Take before meals. Do not crush or chew.. Active lidocaine 40 mg/ml topical cream (6 sources) Antiarrhythmic, Amide Local Anesthetic Start: 08-28-2023 lidocaine (LMX) 4 % cream Indications: Type 1 diabetes mellitus with polyneuropathy (CMS/HCC) Apply 1 application topically 4 (four) times a day as needed for mild pain 60 g 08/28/2023 Active 100 ml magnesium sulfate 10 mg/ml injection (1 source) Start: 07-29-2020 magnesium sulfate 1000 mg in dextrose 5% 100 mL IVPB melatonin 3 mg oral tablet (1 source) Start: 08-01-2020 melatonin tablet 3 mg metoclopramide 10 mg oral tablet (6 sources) Dopamine-2 Receptor Antagonist Start: 10-02-2023 metoclopramide (Reglan) 10 MG tablet Indications: Diabetic gastroparesis associated with type 1 diabetes mellitus (CMS/HCC) Take 1 tablet (10 mg) by mouth in the morning and 1 tablet (10 mg) at noon and 1 tablet (10 mg) in the evening and 1 tablet (10 mg) before bedtime. 120 tablet 3 10/02/2023 Active petrolatum 610 mg/ml topical cream (6 sources) Start: 10-02-2023 End: 10-01-2024 Skin Protectants, Misc. (eucerin) cream Indications: Plaque psoriasis (CMS/HCC) Apply topically if needed for wound care or dry skin 454 g 3 10/02/2023 10/01/2024 Active QUEtiapine 25 mg oral tablet (6 sources) Atypical Antipsychotic Start: 10-02-2023 take 1 tablet by mouth at bedtime QUEtiapine (SEROquel) 25 MG tablet Indications: Mixed bipolar I disorder (CMS/HCC) , Primary insomnia Take 1 tablet (25 mg) by mouth at bedtime 30 tablet 3 10/02/2023 Active sertraline 100 mg oral tablet (2 sources) Serotonin Reuptake Inhibitor take 1 tablet by mouth once daily sertraline (ZOLOFT) 100 MG tablet Take 100 mg by mouth daily . 0 Active tiZANidine 4 mg oral capsule (8 sources) Central alpha-2 Adrenergic Agonist Start: 11-06-2023 take 1 capsule by mouth in the morning, then take 1 capsule by mouth in the evening, then take 1 capsule by mouth at bedtime tiZANidine (Zanaflex) 4 MG capsule Indications: Fibromyalgia Take 1 capsule (4 mg) by mouth in the morning and 1 capsule (4 mg) in the evening and 1 capsule (4 mg) before bedtime. 60 capsule 11/06/2023 Active take 1 tablet by mitchell th every eight hours as needed tiZANidine (ZANAFLEX) [...] and 0.45 % sodi um chloride infusion insulin lispro (HumaLOG) injection 2-10 Units (2 [...] mL infusion insulin regular in 0.9 % NaC l (MYXREDLIN) 100 Units/100 mL infusion (1 source) Start: 06-07-2020 End: 06-08-2020 insulin regular in 0.9 % NaCl (MYXREDLIN) 100 Units/100 mL infusion 100 ml insulin, regular, human 1 unt/ml injection (7 sources) Insulin Start: 07-02-2023 End: 07-04-2023 insulin regular (MYXREDLIN) infusion 100 units/100 mL in sodium chloride 0.9% (1 unit/mL premix) insulin regular (HumuLIN R,NovoLIN R) 100 UNIT/ML injection Inject under the skin 3 (three) times a day with meals Active 1 ml ketorolac tromethamine 30 mg/ml cartridge [...] 1215 DO NOT CRUSH OR CHEW. pantoprazole (NV OTONIX) 20 mg EC tablet Take 30 [...] Problem Classification Problem Date Documented Date Episodic/Chronic Administrative/socia l admission (2 sources) Patient encounter status; Translations: [Dietary counseling and surveillance] 04-12-2024 Episodic Anxiety disorders (7 sources) Generalized anxiety disorder; Translations: [Generalized anxiety disorder] Onset: 09-17-2022 06-17-2023 Chronic Asthma (7 sources) Mild intermittent asthma, uncomplicated; Translations: [Mild intermittent asthma] Onset: 09-17-2022 06-17-2023 Chronic Attention-deficit, conduct, and disruptive behavior disorders (1 source) Attention-deficit hyperactivity disorder, predominantly inattentive type; Translations: [ADHD INATTENTIVE TYPE] Onset: 09-17-2022 Chronic Cardiac dysrhythmias (1 source) Sick sinus syndrome; Translations: [Sick sinus syndrome] Onset: 07-02-2023 Chronic Cardiac dysrhythmias (1 source) Tachycardia, unspecified; Translations: [Tachycardia, unspecified] Onset: 07-02-2023 Episodic Diabetes mellitus with complications (20 sources) Type 1 diabetes mellitus with ketoacidosis without coma; Translations: [Diabetic ketoacidosis without coma] Onset: 07-03-2018 Chronic Diabetes mellitus with complications (4 sources) Type 2 diabetes mellitus with ketoacidosis without coma; Translations: [TYPE 2 DM KETOACIDOSIS W/O COMA] Onset: 07-29-2020 Diabetes mellitus without complication (9 sources) Type 1 diabetes mellitus; Translations: [Type 1 diabetes mellitus with ketoacidosis without coma] Onset: 06-07-2020 06-07-2020 Chronic Diabetes mellitus without complication (3 sources) Presence of insulin pump (external) (internal); Translations: [Insulin pump present] Onset: 09-17-2022 04-12-2024 Episodic Disorders usually diagnosed in infancy, childhood, or adolescence (6 sources) Attention deficit hyperactivity disorder, predominantly inattentive type; Translations: [Other specified behavioral and emotional disorders with onset usually occurring in childhood and adolescence] Onset: 06-16-2023 06-16-2023 Chronic Esophageal disorders (7 sources) Gastro-esophageal reflux disease without esophagitis; Translations: [Gastroesophageal reflux disease] Onset: 09-17-2022 06-17-2023 Chronic Fracture of lower limb (4 sources) Closed fracture of base of fifth metatarsal bone ; Translations: [Displaced fracture of fifth metatarsal bone, right foot, initial encounter for closed fracture] 04-02-2024 Episodic Miscellaneous mental health disorders (6 sources) Primary insomnia; Translations: [Primary insomnia] Onset: 10-02-2023 10-02-2023 Chronic Mood disorders (7 sources) Bipolar disorder, currently in remission, most recent episode unspecified; Translations: [Mixed bipolar I disorder] Onset: 09-17-2022 06-17-2023 Chronic Nausea and vomiting (2 sources) Nausea; Translations: [Nausea] Onset: 07-04-2023 Episodic Nutritional deficiencies (1 source) Deficiency of macronutrients; Translations: [Unspecified severe protein-calorie malnutrition] Onset: 04-03-2020 03-01-2021 Chronic Other aftercare (1 source) prison (current) use of insulin; Translations: [CUSTODIAL CURRENT USE OF INSULIN] Onset: 09-17-2022 Episodic Other aftercare (1 source) Other [facility] (current) drug therapy; Translations: [OTH [employer] REPAIR TECHNICIAN CURRENT DRUG THERAPY] Onset: 09-17-2022 Episodic Other aftercare (2 sources) Long-term current use of insulin; Translations: [prison (current) use of insulin] 04-12-2024 Episodic Other connective tissue disease (2 sources) Pain in right foot; Translations: [Pain in right foot] 04-02-2024 Episodic Other hematologic conditions (1 source) Other specified abnormalities of plasma proteins; Translations: [Other specified abnormalities of plasma proteins] Onset: 03-18-2023 Episodic Other inflammatory condition of skin (1 source) Psoriasis vulgaris; Translations: [PSORIASIS VULGARIS] Onset: 09-17-2022 Chronic Other inflammatory condition of skin (6 sources) Plaque psoriasis; Translations: [Psoriasis vulgaris] Onset: 06-17-2023 06-17-2023 Chronic Other injuries and conditions due to external causes (1 source) Hypothermia, initial encounter; Translations: [HYPOTHERMIA INITIAL ENCOUNTER] Onset: 08-01-2020 Episodic Other injuries and conditions due to external causes (1 source) Underdosing of insulin and oral hypoglycemic [antidiabetic] drugs, initial encounter; Translations: [UNDRDOS INSULIN ORL HG RX INIT ENC] Onset: 09-17-2022 Episodic Other injuries and conditions due to external causes (2 sources) Injury of right foot; Translations: [Unspecified injury of right foot, initial encounter] 04-02-2024 Episodic Other nervous system disorders (1 source) [...] NICOTINE DEPEND] Onset: 09-17-2022 Episodic Substance-related disorders (7 sources) Methamphetamine abuse; Translations: [Other stimulant abuse, uncomplicated] Onset: 11-24-2020 11-24-2020 Chronic Substance-related disorders (1 source) Other psychoactive substance abuse, in remission; Translations: [OTH PSYCHOACT SBSTNC ABUSE REMISS] Onset: 08-01-2020 Unclassified (5 sources) CONTACT W/AND (SUSP) EXPOS COVID-19; Translations: [CONTACT W/AND (SUSP) EXPOS COVID-19] Onset: 08-01-2020 Unclassified (1 source) DKA Onset: 07-02-2023 Unclassified (1 source) High Blood Sugar - Symptomatic Onset: 03-02-2024 Unclassified (1 source) High BS Onset: 03-02-2024 Past or Other Problems Problem Classification Problem Date Documented Da te Episodic/Chronic Mood disorders (1 source) Mood disorders Onset: 07-03-2023 07-03-2023 Other connective tissue disease (6 sources) Fibromyalgia; Translations: [Fibromyalgia] Onset: 06-17-2023 06-17-2023 Episodic Otitis media and related conditions (6 sources) Acute serous otitis media of left ear; Translations: [Acute serous otitis media, left ear] Onset: 06-17-2023 Resolved: 10-02-2023 10-02-2023 Episodic Respiratory failure; insufficiency; arrest (adult) (1 source) [...] Test Name Value Interpretation Reference Range Facility Glucose (Bld) [Mass/Vol]Orde red By: Eleanor Beasley on 04-12-2024 Glucose Blood, POC 99 mg/dL [facility] HbA1c (Bld) [Mass fraction]o n 04-12-2024 Interpretation and review of laboratory results Abnormal [facility] Laboratory - Hematology and Cell countson 04-12-2024 HbA1c (Bld) [Mass fraction] 14.1 % [facility] No Panel InformationOrdered By: Eleanor Beasley on 04-12-[address] [facility] XR Foot - right 3 [facility] Result: 3 views foot: AP, MO, and lateral of the right foot were taken and show Large complete minimally displaced avulsion fracture noted of the base of the 5th metatarsal. There is a fracture gap of approximately 5 mm noted laterally. No osseous callus present. [facility] Study observation (narrative) [facility] BASIC METABOLIC PANLon 03-02 Anion gap [Moles/Vol] 8 mmol/L Normal 5-15 [facility] Comment on above: Performed By: #### B MP #### [facility] ([id number]) [address] [place] [phone] Calcium [Mass/Vol] 7.3 mg/dL Low 8.5-10.5 [facility] Comment on above: Performed By: #### B MP #### [facility] ([id number]) [address] [place] [address] 61543 Chloride [Moles/Vol] 109 mmol/L Normal 98-109 [facility] Comment on above: Performed By: #### B MP #### [facility] ([id number]) [address] [place] [address] 70125 CO2 [Moles/Vol] 14 mmol/L Low 22-32 [facility] Comment on above: Performed By: #### B MP #### [facility] ([id number]) [address] [place] [address] 22443 Creatinine [Mass/Vol] 0.70 mg/dL Normal 0.40-1.00 [facility] Comment on above: Result Comment: METH OD TRACEABLE TO IDMS STANDARD Performed By: #### B MP #### [facility] ([id number]) [address] [place] [address] [id number] eGFR (CKD-EPI) NON-RACE DEPENDENT >90 Normal >59 [facility] Comment on above: Result Comment: Reported eGFR is based on the CKD-EPI 1 equation that does not use a race coefficient. Performed By: #### B MP #### [facility] ([id number]) [address] [place] [address] 58885 Glucose [Mass/Vol] 241 mg/dL High 65-99 [facility] Comment on above: Performed By: #### B MP #### [facility] ([id number]) [address] [place] [address] 60715 Potassium [Moles/Vol] 3.7 mmol/L Normal 3.5-5.0 [facility] Comment on above: Performed By: #### B MP #### [facility] ([id number]) [address] [place] [address] 71244 Sodium [Moles/Vol] 131 mmol/L Low 134-146 [facility] Comment on above: Performed By: #### B MP #### [facility] ([id number]) [address] [place] [address] 94550 Urea nitrogen [Mass/Vol] 16 mg/dL Normal 5-23 [facility] Comment on above: Performed By: #### B MP #### [facility] ([id number]) [address] [place] [address] 15839 Anion gap [Moles/Vol] 12 mmol/L Normal 5-15 [facility] Comment on above: Performed By: #### B MP #### [facility] ([id number]) [address] [place] [address] 50586 Calcium [Mass/Vol] 7.6 mg/dL Low 8.5-10.5 [facility] Comment on above: Performed By: #### B MP #### [facility] ([id number]) [address] [place] [address] 16128 Chloride [Moles/Vol] 107 mmol/L Normal 98-109 [facility] Comment on above: Performed By: #### B MP #### [facility] ([id number]) [address] [place] [address] 00768 CO2 [Moles/Vol] 11 mmol/L Low 22-32 [facility] Comment on above: Performed By: #### B MP #### [facility] ([id number]) [address] [place] [address] 02426 Creatinine [Mass/Vol] 0.80 mg/dL Normal 0.40-1.00 [facility] Comment on above: Result Comment: METH OD TRACEABLE TO IDMS STANDARD Performed By: #### B MP #### [facility] ([id number]) [address] [place] [address] 30410 eGFR (CKD-EPI) NON-RACE DEPENDENT >90 Normal >59 [facility] Comment on above: Result Comment: Reported eGFR is based on the CKD-EPI 2020 equation that does not use a race coefficient. Performed By: #### B MP #### [facility] ([id number]) [address] [place] [address] 03512 Glucose [Mass/Vol] 345 mg/dL High 65-99 [facility] Comment on above: Performed By: #### B MP #### [facility] ([id number]) [address] [place] [address] 55645 Potassium [Moles/Vol] 3.7 mmol/L Normal 3.5-5.0 [facility] Comment on above: Performed By: #### B MP #### [facility] ([id number]) [address] [place] [address] 33390 Sodium [Moles/Vol] 130 mmol/L Low 134-146 [facility] Comment on above: Performed By: #### B MP #### [facility] ([id number]) [address] [place] [address] 12062 Urea nitrogen [Mass/Vol] 18 mg/dL Normal 5-23 [facility] Comment on above: Performed By: #### B MP #### [facility] ([id number]) [address] [place] [address] 02818 Beta hydroxybutyrate [Moles/ Vol]on 03-02-2024 BetaHydroxybutyrate 7.48 mmol/L High 0.02-0.27 [facility] Comment on above: Performed By: #### C BCA, CMP, [id number] #### [facility] ([id number]) [address] [place] [address] 79180 CBC AND AUTO DIFFon 03-02-20 24 ABSOLUTE BASOPHIL 0.0 X10E9/L Normal 0.0-0.2 [facility] Comment on above: Performed By: #### C BCA, CMP, [id number] #### [facility] ([id number]) [address] [place] [address] 69909 ABSOLUTE NEUTROPHIL 8.1 X10E9/L High 1.5-6.6 [facility] Comment on above: Performed By: #### Colt MCFADDEN CMP, [id number] #### [facility] ([id number]) [address] [place] [address] 35178 Basophils/100 WBC (Bld) 0.4 % Normal [facility] Comment on above: Performed By: #### Colt MCFADDEN CMP, 6873-4 #### [facility] ([id number]) [address] [place] [address] 28744 Eosinophils (Bld) [#/Vol] 0.0 10*3/uL Normal 0.0-0.4 [facility] Comment on above: Performed By: #### Colt MCFADDEN CMP, 6873-4 #### [facility] ([id number]) [address] [place] [address] 98425 Eosinophils/100 WBC (Bld) 0.4 % Normal [facility] Comment on above: Performed By: #### Colt MCFADDEN CMP, 6873-4 #### [facility] ([id number]) [address] [place] [address] 46790 Erythrocyte distribution width (RBC) [Ratio] 14.2 % Normal 11.5-15.0 [facility] Comment on above: Performed By: #### Colt MCFADDEN CMP, 6873-4 #### [facility] ([id number]) [address] [place] [address] 21833 Hematocrit (Bld) [Volume fraction] 39.6 % Normal 35-47 [facility] Comment on above: Performed By: #### Colt MCFADDEN CMP, 6873-4 #### [facility] ([id number]) [address] [place] [address] 20553 Hemoglobin (Bld) [Mass/Vol] 13.0 g/dL Normal 11.7-15.5 [facility] Comment on above: Performed By: #### Colt MCFADDEN CMP, 6873-4 #### [facility] ([id number]) [address] [place] [address] 35830 Lymphocytes (Bld) [#/Vol] 1.1 10*3/uL Normal 1.0-3.5 [facility] Comment on above: Performed By: #### Colt MCFADDEN CMP, 73-4 #### [facility] ([id number]) [address] [place] [address] 53756 Lymphocytes/100 WBC (Bld) 11.2 % Normal [facility] Comment on above: Performed By: #### Colt MCFADDEN CMP, 73-4 #### [facility] ([id number]) [address] [place] [address] 72278 MCH (RBC) [Entitic mass] 26.1 pg Low 27-34 [facility] Comment on above: Performed By: #### Colt MCFADDEN CMP, 73-4 #### [facility] ([id number]) [address] [place] [address] 28540 MCHC (RBC) [Mass/Vol] 32.8 g/dL Normal 32-36 [facility] Comment on above: Performed By: #### Colt MCFADDEN CMP, 73- #### [facility] ([id number]) [address] [place] [address] 90379 MCV (RBC) [Entitic vol] 79 fL Low 80-100 [facility] Comment on above: Performed By: #### Colt MCFADDEN CMP, 73-4 #### [facility] ([id number]) [address] [place] [address] 60766 Monocytes (Bld) [#/Vol] 0.4 10*3/uL Normal 0-0.9 [facility] Comment on above: Performed By: #### Colt MCFADDEN CMP, 73-4 #### [facility] ([id number]) [address] [place] [address] 47867 Monocytes/100 WBC (Bld) 4.4 % Normal [facility] Comment on above: Performed By: #### Colt MCFADDEN, CMP, 6873-4 #### [facility] ([id number]) [address] [place] [address] 16474 Neutrophils/100 WBC (Bld) 83.6 % Normal [facility] Comment on above: Performed By: #### Colt MCFADDEN CMP, 6873-4 #### [facility] ([id number]) [address] [place] [address] 86750 Platelet mean volume (Bld) [Entitic vol] 8.4 fL Normal 7-12 [facility] Comment on above: Performed By: #### Colt MCFADDEN CMP, 6873-4 #### [facility] ([id number]) [address] [place] [address] 52496 Platelets (Bld) [#/Vol] 330 10*3/uL Normal 150-450 [facility] Comment on above: Performed By: #### Colt MCFADDEN CMP, 6873-4 #### [facility] ([id number]) [address] [place] [address] 12529 RBC COUNT 4.99 X10E12/L Normal 3.80-5.20 [facility] Comment on above: Performed By: #### Colt MCFADDEN, CMP, 6873-4 #### [facility] ([id number]) [address] [place] [address] 44759 WBC (Bld) [#/Vol] 9.6 10*3/uL Normal 4.0-11.0 [facility] Comment on above: Performed By: #### Colt MCFADDEN, CMP, 6873-4 #### [facility] ([id number]) [address] [place] [address], [place] [address] COMPREHENSIVE METABOLIC PANE [employer] 03-02-2024 Albumin [Mass/Vol] 4.2 g/dL Normal 3.2-5.3 [facility] Comment on above: Performed By: #### C ABIEL MCFADDEN, 6873-4 #### [facility] ([id number]) [address] [place] [address] 19559 ALP [Catalytic activity/Vol] 77 U/L Normal 39-130 [facility] Comment on above: Performed By: #### C ABIEL MCFADDEN, 6873-4 #### [facility] ([id number]) [address] [place] [address] 92784 ALT [Catalytic activity/Vol] 34 U/L High 0-31 [facility] Comment on above: Performed By: #### Colt MCFADDEN CMP, 6873-4 #### [facility] ([id number]) [address] [place] [address] 07216 Anion gap [Moles/Vol] 17 mmol/L High 5-15 [facility] Comment on above: Performed By: #### Colt MCFADDEN CMP, 6873-4 #### [facility] ([id number]) [address] [place] [address] 12591 AST [Catalytic activity/Vol] 20 U/L Normal 0-41 [facility] Comment on above: Performed By: #### Colt MCFADDEN CMP, 6873-4 #### [facility] ([id number]) [address] [place] [address] 29973 Bilirubin [Mass/Vol] 1.5 mg/dL High 0.3-1.2 [facility] Comment on above: Performed By: #### Colt MCFADDEN CMP, 6873-4 #### [facility] ([id number]) [address] [place] [address] 30903 Calcium [Mass/Vol] 8.4 mg/dL Low 8.5-10.5 [facility] Comment on above: Performed By: #### C ABIEL MCFADDEN, 6873-4 #### [facility] ([id number]) [address] [place] [address] 43161 Chloride [Moles/Vol] 95 mmol/L Low 98-109 [facility] Comment on above: Performed By: #### C ABIEL MCFADDEN, 6873-4 #### [facility] ([id number]) [address] [place] [address] 56799 CO2 [Moles/Vol] 12 mmol/L Low 22-32 [facility] Comment on above: Performed By: #### C ABIEL MCFADDEN, 6873-4 #### [facility] ([id number]) [address] [place] [address] 72917 Creatinine [Mass/Vol] 0.96 mg/dL Normal 0.40-1.00 [facility] Comment on above: Result Comment: METH OD TRACEABLE TO IDMS STANDARD Performed By: #### C ABIEL MCFADDEN, 6873-4 #### [facility] ([id number]) [address] [place] [address] 40323 GFR/1.73 sq M.predicted among non-blacks MDRD (S/P/Bld) [Vol rate/Area] 82 mL/min/{1.73_m2} Normal >59 [facility] Comment on above: Result Comment: Reported eGFR is based on the CKD-EPI 1 equation that does not use a race coefficient. Performed By: #### C ABIEL MCFADDEN, 6873-4 #### [facility] ([id number]) [address] [place] [address] 86194 Glucose [Mass/Vol] 582 mg/dL Critically high 65-99 [facility] Comment on above: Performed By: #### C BCA, CMP, 6873-4 #### [facility] ([id number]) [address] [place] [address] 06883 Potassium [Moles/Vol] 4.8 mmol/L Normal 3.5-5.0 [facility] Comment on above: Performed By: #### Colt MCFADDEN [facility], 6873-4 #### [facility] ([id number]) [address] [place] [address] 74025 Protein [Mass/Vol] 7.5 g/dL Normal 6.0-8.0 [facility] Comment on above: Performed By: #### Colt MCFADDEN [facility], 6873-4 #### [facility] ([id number]) [address] [place] [address] 48770 Sodium [Moles/Vol] 124 mmol/L Low 134-146 [facility] Comment on above: Performed By: #### Colt MCFADDEN [facility], 6873-4 #### [facility] ([id number]) [address] [place] [address] 63257 Urea nitrogen [Mass/Vol] 20 mg/dL Normal 5-23 [facility] Comment on above: Performed By: #### Colt MCFADDEN [facility], 6873-4 #### [facility] ([id number]) [address] [place] [address] 07310 Glucose Glucometer (BldC) [M ass/Vol]on 03-02-2024 BEDSIDE GLUCOSE LAB >500 Critically high 65-99 [facility] Comment on above: Result Comment: SEE LAB RESULTS FOR CONFIRMATION HCG ( test) Ql (U)o n 03-02-2024 Beta HCG ( test) Ql (U) Negative Normal NEG [facility] Comment on above: Performed By: #### 2 106-3 #### [facility] ([id number]) [address] [place] [address] 86481 Lactate (P denis) [Moles/Vol]o n 03-02-2024 LACTATE W/REFLEX 1.1 mmol/L Normal 0.4-2.0 [facility] Comment on above: Result Comment: Result did not trigger repeat Lactate, re-order if needed. Performed By: #### 3 2133-1 #### [facility] ([id number]) [address] [place] [address] 35268 URN MACROSCOPIC NURon 2023 BILIRUBIN NAZ Negative Normal NEG [facility] Comment on above: Performed By: #### N UM #### [facility] ([id number]) [address] [place] [address] 95035 BLOOD/HGB NAZ Small Abnormal NEG [facility] Comment on above: Performed By: #### N UM #### [facility] ([id number]) [address] [place] [address] 45797 GLUCOSE NAZ 500 mg/dL Abnormal NEG [facility] Comment on above: Performed By: #### N UM #### [facility] ([id number]) [address] [place] [address] [place] [address] KETONES NAZ >=160 Abnormal NEG [facility] Comment on above: Performed By: #### N UM #### [facility] ([id number]) [address] [place] [address] 28024 LEUKOCYTE ESTERASE NAZ Negative Normal NEG [facility] Comment on above: Performed By: #### N UM #### [facility] ([id number]) [address] [place] [address] 81127 NITRITE NAZ Negative Normal NEG [facility] Comment on above: Performed By: #### N UM #### [facility] ([id number]) [address] [place] [address] 03697 PH NAZ 5.0 Normal 5.0-8.5 [facility] Comment on above: Performed By: #### N UM #### [facility] ([id number]) [address] [place] [address] 44106 PROTEIN NAZ Negative Normal NEG [facility] Comment on above: Performed By: #### N UM #### [facility] ([id number]) [address] [place] [address] 89307 SPECIFIC GRAVITY NAZ 1.015 Normal 1.003-1.035 [facility] Comment on above: Performed By: #### N UM #### [facility] ([id number]) [address] [place] [address] 65318 UROBILINOGEN NAZ 0.2 eu/dL Normal <1.1 [facility] Comment on above: Performed By: #### N UM #### [facility] ([id number]) [address] [place] [address] 12648 VENOUS BLOOD GASon 4 CAMI'S TEST Normal [facility] Comment on above: Performed By: #### V BG #### [facility] ([id number]) [address] [place] [address] 60072 BASE,DEFICIT 13.0 MMOL/L High 0.0-2.0 [facility] Comment on above: Performed By: #### V BG #### [facility] ([id number]) [address] [place] [address] 22083 Body temperature 98.6 [degF] Normal 37.0 [facility] Comment on above: Performed By: #### V BG #### [facility] ([id number]) [address] [place] [address] 06530 HCO3 (Bld) [Moles/Vol] 13.9 mmol/L Low 20.0-24.0 [facility] Comment on above: Performed By: #### V BG #### [facility] ([id number]) [address] [place] [address] 33100 Oxygen saturation in Blood 48.0 % Low >80.0 [facility] Comment on above: Performed By: #### V BG #### [facility] ([id number]) [address] [place] [address] 02100 OXYGEN SOURCE [employer] [facility] Comment on above: Performed By: #### V BG #### [facility] ([id number]) [address] [place] [address] 20457 PCO2, VENOUS 35.3 MMHG Normal 35-50 [facility] Comment on above: Performed By: #### V BG #### [facility] ([id number]) [address] [place] [address] 34160 PH, VENOUS 7.201 Low 7.320-7.420 [facility] Comment on above: Performed By: #### Leobardo BG #### [facility] ([id number]) [address] [place] [address] 05448 PO2, VENOUS 31 MMHG Normal 30-50 [facility] Comment on above: Performed By: #### V BG #### [facility] ([id number]) [address] [place] [address] 14423 SAMPLE SITE N/A Normal [facility] Comment on above: Performed By: #### V BG #### [facility] ([id number]) [address] [place] [address] [place] [address] SAMPLE TYPE VENOUS Normal [facility] Comment on above: Performed By: #### V BG #### [facility] ([id number]) [address] [place] [address] 88025 Coding Summaryon 02-05-2024 Coding Summary HTMLBase 64 KdoihailMXe7yFh+PGhl YWQ+BR4FOZXoN35wjTFf yB9tP0BEFZlMSwvwJWTH HRsPBwZifkPdQU3pvQNf ZXJu IC8+EI7jZWQbBxezjSLb j8F3oUD9O43xrs2mEBfv qFO2LHCeZjOzzlmko9tv oFl8GSjxZanxBsWv BPFqrW47SWU8jJ82Gu77 gKMigFYjp8keaFr9PoSi CUJqKBZ8nRdgGBwqe4Yw GBLbH49qbTXmo0S9 IGNvbGxhcHNlOyBlbXB0 zY9rHQiyezawd1jentrg Hhi9zo51dEByh2I2tIY6 U8BwaoD3MRLdsVRr GeqxbPPVgS9vjhnsx7nt lilpBrEiAAJqLSr7FMu8 NDPavFekCvAjHC86VSU2 NHFglhTkV0GjJKFt zAwdBqT7n3A8Ax3SK1GT ZqdsL2SMDSXNOYwhhYB+ HY71tb87J2LbFuvaUza3 NTSzSJP2zBM9qJ6p LEAiAEmsw1Q1yCG9U7Py rnOnqu0vn3ifXDLbMFnw W77isNKcb8I9ACGkrAX3 GSVmiUsfZxXgoB22 Oyc+DUTzqXepm1RrLxxg f2ins3pzzSm5CmmvSITn ueLrpEsfUGY2p2UhAx7l MTBeiFB2lKM6uA4v QpSbStF2ZDvnW170MyBh xGKsFaszW76uB2DwmZB+ XEDqJqb6EBOfbTfbYM8j S6XoZTFmdmqafETq hEluNU8yZKQdkudlAKDl pZ8sSDKaC5g8MkXwRwQ4 CGzqC7ZcIXCgphdkHt35 jK2jMiIoNrX3UOhr K3HpioZ7GNNzdDTjTEis IGW3K41pk6G1KGUqTSTw AIT2sOJ5iQ7ukWudarsj bGVmdDsgdmVydGlj AZqwACkbK260GBXfoFvy PkNvZGluZyBEYXRlOiAg MDgvMDgvMjAyNDwvdGQ+ SUEkESG7dQqdUPWh yJEfNMvhMz3giGtdgUkw UU4uTKKfibxbCNGvyI3j JDKnwVCbcFbuPV6tCCBd aqrug923HaAdJDH4 WAVoiYVyT3YywM7cCdVu SHMjIGFfA2VbaIOnGPrh S043CPmgKpT5NCIaizMg S2UoOFOptYspDdM1 d7A1Ss7Dc4TbgjovF3Qq nRMeSvOvGpzaBTr0F7Yx PjwvdHI+PX68NBZlSL88 HKe5RCK9fQqwXCgi BKVpD6TkpG0oLdJcBGLp ZGRkOyc+PHRhYmxlIHdp ZHRoPScxMDAlJyBzdHls WG7dBg2vYBUpURAw eMivuKWpVnYee8hcHGNc UAfrEX0msBimS7QecDK1 IEEyt8w2Fr53A63nG5No dXA+LONkuVZ6yTF4 oV4aAzGrZdF3URvvT213 UgLijKBsWhlnl6kcq4ys cHe6HlP1FDKyzhWcbVrv BZD2p5QtAs62U09r IHdpZHRoPSIxNSUiIHZh fHfonp5bgA7bVp8+PGNv pSB4sAH7uE6sHdQiWiP2 MJzcF880OxMqwAId Rmpfz6eqx3atqGg4PuLx KXWhsqUhbWvzXXF1k3Uo Sj10M5HduQaqx5UsVtc1 jn63wBMge7S0tCP5 Z1JmMRRbfviuyMYbvBqw AO5iTRNmsvtiARQtzM2o QINlT2a4AhFiCoN1IMsr M0MgfvT3CTLvtKAp XVKpyHLBzT4bwrurl8po tmpqJhPiRZElEEf8TLc7 KZUboHufJlAaPFK3RiA0 MKA6xMVqyW1mwVek ajlyvM2iCop+ONS8jDCx eQZKBY1aEckvfDS+PHRk GVW5wJmgBTjmVGBgqO8h PCYxO2s7CeZwRnN2 ILylA3NuxoL7DQPyyGDe BWQmwLRRoM1nwkrzo5zn pdzxKpLnTJGaGOv1EJk9 LWFsaWduOiBsZWZ0 TzK4LHA1lTVelH5thCyc xumryK8lSld+QmlydGgg RDP2QNx5D7VvKxb5XMWr sGzvCT5rtKLbXJnr Kk6rlNtvxSeaBY6eSTSw ytrbg745MsLqr1knIDGn qREyVAlpWUC3D79dl3A5 XXYuDADoBPC7vUM5 aT4vtImvdvzgvPHznPij mjXglSzeEQlxENqbD271 QWIbnAixIoMaUPc0Y5Jk Nfx3CYWonVddGK0x hNYuYGbaPw6hqJwgzQan DZ3yNZYypjwzz688UyKl v7twQSEwgHLcLBmnPTS3 X28fd6S5JILqYIOi KUZ3iNK9sR5ndFtzixpz bGVmdDsgdmVydGljYWwt KNrkA855UUUyeYygSxTx zPn5M5WvBxt6XSTm cKugTI2unMVcMWzoGo1h sYntrKftJL2aOSSifhrj e490XsHdh7oqYRVjjNAj KYeqIYI0R57tv0L5 KDSpOHJaNDQ8xKO3iG3r bGlnbjogbGVmdDsgdmVy eDxqUVlqDJasL517ZIOe cDsnPlBhdGllbnQg EZziLLg7P8GpXmvjuMG+ CB58UNIeME47dSPggNKf a7ztjYz9VbLiTCLnJUR6 oLljYXypm8WwMKWy E00muLXtk6R2ZEUnwFtp gXExXcUexYR1kL9sAFyv rvfdg1paalbzTkxlr2jr yk13lP36T16yDHsl ZHRoPSIzMCUiIHZhbGln lt3chW1kEk1+PGNvbCB3 bXU5tY8oWDZkGxI6YEqw V371TxZxcZWaTnex f0xhu5oeeOk8HhD5BAKj rtSvvWceSQH9j7AdNi27 U41lHUqoEQNvDNJvWQDe BGLvvEansb8kyJ7n Ii8+EOUzqOL3lOH0cZ3e ZlGoBeT2ZHsjY896QzXm hLLeBkbyX16wF2UngGR+ AVUxTsf6TSAwsRmx QM0hkZTnIRzfQb6hMWA7 BlMnVgOvOHqiV9LqJPYe akwkcdeioUU6LPMeMSIm aR32Oy2hePbyGSPb oGYZkJ7fwsjfl9izdkkt OpHaCXGdBZq3WCt0GWWq fCqfGwSrPPN6JhE3TGE7 rASecY3vaDlqahhu aR0tO2EyMCDkwodmZd05 wA7kLxGjZlA5EUvzBlg+ XF4WGBKTVTERWTsVILTF BZYTWOB3F7NqMif6 BRRttElcLB2skZBpCUnc Rr8ccPbuaQofXP5eROVl tkavQZVwnE7gMDKxzCNf bIoeYB9jWADpolpk s678MwSoTEE8CPTknJJj J0UdgG2yQzZrFNYbHPPf L5SrcXUnYMolF723HHoo EfM9EGTzcvNbG9Nr CPHivMwaQcJ4x5W3Pf5n Cv9oEW9zWZpcVK07DP40 oLLva0W0mIF3K6OgXQAi mdrizczbcAP4GWGn XAGluC75pOSxQWctHq7o k7L5k117MBOvRSKupV51 Iw5kgQpqUPRenHKSfW1d anugd5obragcQaFm AXFuGZw8PBu0OKPjcCqv CmKsGNE6ElI9BZK1fNRd iX1utZppankgtN5yJpc+ DjSbSQKdcrD1E1Wp Kgh2JYQppZqhKR0kpBYz PFzmEu3qoIbejGupZS4y HUXkyvwlENIloB3oAYAi tUWbmEmvZK9cELEf dtjks054SrEfILK0XUDd mNKvR6OcaV0pOcTdDKSw ETBgO7JmgAApFPxoX719 JXonZdV4SQZylsRs T9XeNZRsqPccKpJ6r7Q7 Pk5DOA1RAMU8J3NeSqy5 IYDnoHklWG0bmDPfLZov Fj1bhTadfSxkHP5o BMEjqzdiHHHkvQ4tJNIf gLYhhGgmFH6gJTKjzpdr z058ZlYsIXL6EHAvyKEv D1JriF6zTrLaDMZf UCNxK6WqsAJhKQfdL361 YZklJoI0WBGvmsHvS0Ws KQBlcUdtZbK0w0L0Ug7D rSFtW7HjG4c1I6Di PjwvdHI+PB03LXOtLE31 sCJpcLUnx3ssmHw4OmXd FNXrYAR0zKczOPwey5Ro YKMeB28uvOFyo0D1 IGNvbGxhcHNlOyBlbXB0 jG3nKAmxxoown8ehfwgj Azoda7miun56cB50M76z IHdpZHRoPSIzMCUi VDGjrKjmhv9yuJ4gJo9+ YFPuhUH1vJN4iP9yGfEh RqF8LPwgO437YkUyjIGa Exrtz8zrr0hvrFg4 IjIwJSIgdmFsaWduPSJ0 j8OtFq42X70yEDdlKPLg FNXrLILnOENutVdiwi3y bT5fOw6+OP9sr6mk wx90fF72zKU+PHRkIHN0 pPcaJIgbSSOcyY2vMKuh KhI3DVZyHvPsnP00iTHz KRmsKm2hhFviaFuq EV8bDNNnpkguj872WwZg i0qzZPIjqSSnQAtrNGZ2 T96xq1Z1HCOmXGVhDZP3 lKV8fA9crSihuqey bGVmdDsgdmVydGljYWwt DJofM114CZBhbRfgKyQw dTKzZ5jlzxSFUQ4yMkut dGQ+ILJxKXX3rHfj XUjeYYMuwN2gLZChP2e4 WpFgTcT8QSppY5IyofW2 YRIcnASiNQGpeZQRxW3i zrcle9ehmwutRnAd UIWdFNj8IBr2NUVjtXnz AgAaMBD2OrJ3RQL4qXKw gF0jeCsfxwkopE0gWpb+ RklOOjwvdGQ+PHRk NPY3cAyuSIbbYDKdeU0t FPNaH8c2DqUeJoJ5OUsh J1IzpyY8VXUrmBQaAEOq pWYMgI3zvkhbj7ui dqawXwRbHGSeZGf9BZz7 DOEmaYleEvWfNYL9BsW8 DZM6hEXftC0geTozsusz aM6sIjd+TVJOOjwv dGQ+TKPbOYA0tVcgNZve TEXfgP5dMSXnP2v4FcHr ZcI8BLqeI5IkyqQ6FMBk hEZdGOIjkVZOiW1e kzche0fvhsbnMkXkGGSs XJh2YZc9XEXhwOyfOzFc GEI8RgU6RPN6aPUccQ6v zMzavtgjcR4gIxo+ SMT3EHZ0FJ52UF71Z7Zk PjwvdGFibGU+PHRhYmxl IHdpZHRoPScxMDAlJyBz pMgdEB1kXk9aQETr LWN (more content not included)... [facility] ED Note-Nursingon 08-01-2024 ED Note-Nursing Attempted to get a hold of patient to notifiy her of her results. The phone number that was listed is incorrect as well as the emergency contact. This nurse called Dr. Kelsie julien which is patients PCP to obtain contact info on this patient. Message was left with the MA. Awaiting a call back from Neyda. [employer] Operator called and spoke to Neyda DIETRICH at Dr. Nicole office. Neyda states that she is no longer a pt. with them. Normal [facility] C Urineon 01-28-2024 C Urine Urine Culture ordered as a result of parameters set on specific urine dip and urine microsopic results. >100,000 cfu/ml Escherichia coli ORGANISM EC ----- SUSCEPTIBILITY ---- ORGANISM ID: 1 ANTIBIOTIC INTERPRETATION KARIN STATUS ORGANISM ECEC Amik S <=16 Verified Amox/Cla S <=8/4 Verified Amp R >16 Verified Amp/Sul R >16/8 Verified Azt S <=4 Verified Cefaz S <=2 Verified Cefep S <=8 Verified Cefo S <=2 Verified Ceftaz S <=1 Verified Ceftri S <=1 Verified Cefur S <=4 Verified Cipro S <=1 Verified Ertap S <=0.5 Verified Gent S <=2 Verified Imi S <=1 Verified Levo S <=2 Verified Nitro S <=32 Verified Pip/Toribio S <=16 Verified Tetra S <=4 Verified Tobra S <=4 Verified Tri/Sulf R >2/38 Verified Normal [facility] Comment on above: Performed By: #### 1 [id number] ####[facility] (DEFAULT)[address] [place] [address] ED Clinical Summaryon 2023 ED Clinical Summary [facility] - Emergency Department [address] [place], [place] [id number] ED Clinical Summary PERSON INFORMATION Name: DOUGLAS CORDOVA Age: 28 Years Sex: FEMALE : 1995 MRN: Acct#: Visit Reason: Nausea and / or Vomiting; Diarrhea; POSS PREGANT AND EXPOSED TO COVID Arrival: 01/26/2024 18:36:09 Discharge: 01/26/2024 20:25:00 LOS: 000 01:49 Check In: 01/26/2024 18:36:09 Checkout:01/26/2024 20:25:00 Address: [address] [facility] [id number] PCP: ARCADIO IGLESIAS PROVIDER INFORMATION Provider Role Assigned Unassigned September TIRE MOLD ENGRAVER Nurse 01/26/2024 18:51:10 Gustavo Marc MD ED Provider 01/26/2024 18:59:38 VITALS INFORMATION Vital Sign Triage Latest Temperature Tympanic Temperature Temporal Artery Pulse Rate 105 bpm 105 bpm O2 Sat 96 % 96 % Respiratory Rate 20 br/min 20 br/min Blood Pressure /96 mmHg /96 mmHg MEDICAL INFORMATION Medications Given: Allergy Information: shellfish; penicillin PHYSICIAN DOCUMENTATION Patient: DOUGLAS CORDOVA Age: 28 years Sex: FEMALE : 1995 Associated Diagnoses: Acute diarrhea; Close exposure to COVID-19 virus; Nausea & vomiting Author: Gustavo Marc MD Basic Information Time seen: Date & time 01/26/2024 19:10:00. History source: Patient. Arrival mode: Private vehicle. History limitation: None. Additional information: Chief Complaint from Nursing Triage Note : Chief Complaint 01/26/2024 18:57 EDT Chief Complaint Pt states that she has nausea/vomiting/diar mireille that started today. last stool was just before brought to room Vomited earlier today, was able to eat then started to have diarrhea. States housemate is positive for COVID but unsure if she may be preg. . History of Present Illness 28-year-old female 2 para 2, diabetes type 1, presented to ER with concern that she had associated nausea, vomiting. She stated that she has not been feeling well, for about a week. She stated that she had found out that a housemate apparently had been tested positive for COVID within the last day or 2. She had reported several bouts of diarrhea last several days. She denies any fevers or chills. No arthralgia or myalgia. No runny nose sore throat cough. She stated that she has been feeling nauseous and vomiting, for the past week or so expressed concern regarding possible . Stated that her last menstrual period was more than a month ago. Indicated that she is managing her diabetes using an OmniPod. Stated that it automatically checks her blood sugar and administer insulin. She stated that she does not have her monitor at this time but trust that the device is working properly. Review of Systems Constitutional symptoms: No fever, no chills. Skin symptoms: No rash, Eye symptoms: Vision unchanged. ENMT symptoms: No sore throat, Respiratory symptoms: No cough, Cardiovascular symptoms: No chest pain, Gastrointestinal symptoms: Abdominal pain, nausea, vomiting, diarrhea. Genitourinary symptoms: No dysuria, Musculoskeletal symptoms: No Muscle pain, Neurologic symptoms: No headache, Endocrine symptoms: Hyperglycemia. Health Status Allergies: Allergic Reactions (Selected) Unknown Penicillin- No reactions were documented. Shellfish- No reactions were documented.. Medications: (Selected) Documented Medications Documented HumaLOG 100 units/mL injectable solution: 0 Refill(s) Lexapro 10 mg oral tablet: 10 mg = 1 tab(s), Daily, 0 Refill(s) OMNIPOD DASH PODS (GEN 4) 5PK: See instructions, change q 72 hours, 0 Refill(s) Seroquel 50 mg oral tablet: 50 mg = 1 tab(s), Daily, 0 Refill(s) gabapentin 800 mg oral tablet: 800 mg = 1 tab(s), PO, TID, 0 Refill(s). Past Medical/ Family/ Social History Medical history: Resolved Disease caused by 2019 novel coronavirus ([id number]): Onset on 03/16/2023 at 27 years. Resolved. Comments: 03/16/2023 CDT 10:14 CDT - SYSTEM Problem added by Rule (IC_COVID19_MAGR_PRO BLEM) following SARS-CoV-2 (COVID-19)/Flu/RSV (GeneXpert) from Nasopharyngeal Swab collected on 16-MAR-2023 09:34:00 EDT tested positive for COVID-19. Diabetes mellitus ([id number]): Resolved., Reviewed as documented in chart. Surgical history: No active procedure history items have been selected or recorded., Reviewed as documented in chart. Family history: No family history items have been selected or recorded., Reviewed as documented in chart. Social history: Social & Psychosocial Habits Alcohol 06/12/2023 Alcohol Use: Never 11/17/2023 Alcohol Use: Never Substance Use 06/13/2023 Substance use: Past Type: Methamphetamines Frequency: Daily Comment: Last use 8 hrs ago - 05/29/2023 22:42 - Shellie Turner RN 11/17/2023 Substance use: Never 01/26/2024 Substance use: Past Tobacco 05/29/2023 Smoking tobacco use: Current everyday tobacco Comment: 2 cigs per day - 05/29/2023 22:42 Shellie Mart RN 11/17/2023 Smoking tobacco use: Current some day (more content not included)... [facility] ED Note - Physicianon 2023 ED Note - Physician Patient: DOUGLAS CORDOVA Age: 28 years Sex: FEMALE : 1995 Associated Diagnoses: Acute diarrhea; Close exposure to COVID-19 virus; Nausea & vomiting Author: Gustavo Marc MD Basic Information Time seen: Date & time 01/26/2024 19:10:00. History source: Patient. Arrival mode: Private vehicle. History limitation: None. Additional information: Chief Complaint from Nursing Triage Note : Chief Complaint 01/26/2024 18:57 EDT Chief Complaint Pt states that she has nausea/vomiting/diar mireille that started today. last stool was just before brought to room Vomited earlier today, was able to eat then started to have diarrhea. States housemate is positive for COVID but unsure if she may be preg. . History of Present Illness 28-year-old female 2 para 2, diabetes type 1, presented to ER with concern that she had associated nausea, vomiting. She stated that she has not been feeling well, for about a week. She stated that she had found out that a housemate apparently had been tested positive for COVID within the last day or 2. She had reported several bouts of diarrhea last several days. She denies any fevers or chills. No arthralgia or myalgia. No runny nose sore throat cough. She stated that she has been feeling nauseous and vomiting, for the past week or so expressed concern regarding possible . Stated that her last menstrual period was more than a month ago. Indicated that she is managing her diabetes using an OmniPod. Stated that it automatically checks her blood sugar and administer insulin. She stated that she does not have her monitor at this time but trust that the device is working properly. Review of Systems Constitutional symptoms: No fever, no chills. Skin symptoms: No rash, Eye symptoms: Vision unchanged. ENMT symptoms: No sore throat, Respiratory symptoms: No cough, Cardiovascular symptoms: No chest pain, Gastrointestinal symptoms: Abdominal pain, nausea, vomiting, diarrhea. Genitourinary symptoms: No dysuria, Musculoskeletal symptoms: No Muscle pain, Neurologic symptoms: No headache, Endocrine symptoms: Hyperglycemia. Health Status Allergies: Allergic Reactions (Selected) Unknown Penicillin- No reactions were documented. Shellfish- No reactions were documented.. Medications: (Selected) Documented Medications Documented HumaLOG 100 units/mL injectable solution: 0 Refill(s) Lexapro 10 mg oral tablet: 10 mg = 1 tab(s), Daily, 0 Refill(s) OMNIPOD DASH PODS (GEN 4) 5PK: See instructions, change q 72 hours, 0 Refill(s) Seroquel 50 mg oral tablet: 50 mg = 1 tab(s), Daily, 0 Refill(s) gabapentin 800 mg oral tablet: 800 mg = 1 tab(s), PO, TID, 0 Refill(s). Past Medical/ Family/ Social History Medical history: Resolved Disease caused by 2019 novel coronavirus ([id number]): Onset on 03/16/2023 at 27 years. Resolved. Comments: 03/16/2023 CDT 10:14 CDT - SYSTEM Problem added by Rule (IC_COVID19_MAGR_PRO BLEM) following SARS-CoV-2 (COVID-19)/Flu/RSV (GeneXpert) from Nasopharyngeal Swab collected on 16-MAR-2023 09:34:00 EDT tested positive for COVID-19. Diabetes mellitus ([id number]): Resolved., Reviewed as documented in chart. Surgical history: No active procedure history items have been selected or recorded., Reviewed as documented in chart. Family history: No family history items have been selected or recorded., Reviewed as documented in chart. Social history: Social & Psychosocial Habits Alcohol 06/12/2023 Alcohol Use: Never 11/17/2023 Alcohol Use: Never Substance Use 06/13/2023 Substance use: Past Type: Methamphetamines Frequency: Daily Comment: Last use 8 hrs ago - 05/29/2023 22:42 Shellie Mart RN 11/17/2023 Substance use: Never 01/26/2024 Substance use: Past Tobacco 05/29/2023 Smoking tobacco use: Current everyday tobacco Comment: 2 cigs per day - 05/29/2023 22:42 Shellie Mart RN 11/17/2023 Smoking tobacco use: Current some day tobacco 01/26/2024 Smoking tobacco use: Former tobacco user Electronic Cigarette/Vaping 11/17/2023 Electronic Cigarette Use: Use, within last 90 days 11/17/2023 Electronic Cigarette Use: Use, within last 90 days Comment: vapes daily - 05/29/2023 22:42 Shellie Mart RN 01/26/2024 Electronic Cigarette Use: Use, within last 90 days Type: Nicotine infused Comment: a cartrige every 2 month - 01/26/2024 19:03 - Erika Kline RN , Reviewed as documented in chart. Problem list: Active Problems (8) Acute respiratory failure Deficiency of macronutrients Diabetic ketoacidosis Diabetic ketoacidosis without coma Furuncle of groin Methamphetamine abuse. Tobacco user Type 1 diabetes mellitus , per nurse's notes. Physical Examination Vital Signs Measurements 01/26/2024 18:57 EDT Height 172.72 cm Weight 72.57 kg Weight Dosing 72.570 kg Body Mass Index Measured 24.33 kg/m2 . General: Alert, no acute distress. Skin: Warm, dry, intact. Head: Normocephalic, a (more content not included)... [facility] ED Note-Nursingon 01-26-2024 ED Note-Nursing Pt given discharge instructions. Pt told to follow up with her family DR. Drink plenty of fluids including gatorade or propel pt told to return if any problem s [facility] ED Note-Nursing Pt arrives with complaints of diarrhea, nausea/vomiting Pt states that she vomited earlier today and has eaten since and retained but then started having diarrhea Pt states that one of her house mates in Sober living tested positive for COVID. Pt states that she was also not sure if she may be . [facility] ED Patient Summaryon 024 ED Patient Summary [facility] - Emergency Department [address] [place], [place] [id number] PATIENT DISCHARGE INSTRUCTIONS Patient Information Name: DOUGLAS CORDOVA Age: 28 Years Date of : 1995 Reason For Visit: Nausea and / or Vomiting; Diarrhea; POSS PREGANT AND EXPOSED TO COVID Arrival Time: 01/26/2024 18:36:09 Primary Care Physician: ARCADIO IGLESIAS Attending Physician: Gustavo Marc MD Comment: Visit Diagnosis: Diagnoses This Visit Acute diarrhea (R19.7) Close exposure to COVID-19 virus (Z20.822) Diarrhea ([id number]) Nausea & vomiting (R11.2) Nausea and / or Vomiting ([id number] aeg) The Pharmacy at [facility] is open Friday through Friday from [...] alcohol and/or drug addiction problems; contact the [facility] 20/01 Crisis Hotline -Text 4HOPE to 574405. If you received any narcotics, sedation, or [...] sign any legal documents With: Address: When: ARCADIO IGLESIAS [address] [place], [place] [id number] Business (1) Within 3 to 5 days Comments: You were seen in the emergency department for evaluation of nausea, vomiting, COVID exposure and concern. Diagnostic workup in the emergency department did not review any specific findings. Urinalysis negative. test negative. COVID test negative Additional diagnostic workup may be needed to find the cause of your symptoms. You should follow-up with your family doctor, PCP, or a family doctor peritoneal dialysis registered nurse assigned to you on your paper work. Call to make an appointment within the specified time as instructed. Return to emergency department if you have any concerns especially recurrent symptoms of shortness of breath, weakness, dizziness or any persistent symptoms that concerns you. Medication Information: The exam and treatment you received today in the [facility] Emergency Department were for an urgent problem and are not intended as complete care. It is important for you to follow up with a doctor, nurse practitioner, or physician?s email marketing assistant for ongoing care. If your symptoms [...] so we can reach you if necessary. [facility] Emergency Department has provided you with a complete list of medications post discharge. Please inform your unarmed security officer/provider of your visit and for further instruction on these medications. Any specific questions regarding your chronic medications and dosages should be discussed with your primary care physician(s) and/or pharmacist. Additional medications on your home medication list not specifically addressed. Please contact the ordering physician if you have questions about these medications. Durable Medical Equipment for Prescription (OMNIPOD DASH PODS (GEN 4) 5PK) change q 72 hours. escitalopram (Lexapro 10 mg oral tablet) 1 tab(s) every day. gabapentin (gabapentin 800 mg oral tablet) 1 tab(s) Oral (given by mouth) 3 times per day. insulin lispro (HumaLOG 100 units/mL injectable solution) QUEtiapine (Seroquel 50 mg oral tablet) 1 tab(s) every day. Visit Information Allergies: Substance Reaction Symptoms Type Comments penicillin Drug shellfish Food Vital Signs: Vitals and Measurements this Visit (last charted value for your 01/26/2024 visit) Vital Signs This Visit Temperature Oral: 37 DegC Peripheral Pulse Rate: 105 bpm Respiratory Rate: 20 br/min Systolic Blood Pressure: 150 mmHg Diastolic Blood Pre (more content not included)... [facility] Test Urine 1on U Preg Negative [facility] Comment on above: Performed By: #### 4 [id number] #### [facility] (DEFAULT) [address] [place] [address] U Preg Internal Control Pass [facility] Comment on above: Performed By: #### 4 [id number] #### [facility] (DEFAULT) [address] [place] [address] SARS-CoV-2 (COVID-19) PCRon 01-26-2024 Employed in healthcare? Unknown Invalid Interpretation [facility] Comment on above: Performed By: #### 4 [id number] #### [facility] (DEFAULT) [address] [place] [address] Group care resident? Unknown Invalid Interpretation Code [facility] Comment on above: Performed By: #### 4 [id number] #### [facility] (DEFAULT) [address] [place] [address] In ICU? Unknown Invalid Interpretation Code [facility] Comment on above: Performed By: #### 4 [id number] #### [facility] (DEFAULT) [address] [place] [address] Internal Control Pass [facility] Comment on above: Performed By: #### 4 [id number] #### [facility] (DEFAULT) [address] [place] [id number] status? Unknown Invalid Interpretation Code [facility] Comment on above: Performed By: #### 4 [id number] #### [facility] (DEFAULT) [address] [place] [address]455 SARS-CoV-2 (COVID-19) RNA CARMEN+probe Ql (Unsp spec) Not detected Normal Not Detected [facility] Comment on above: Result Comment: Perf ormed by PCR methodology. Performed By: #### 4 [id number] #### [facility] (DEFAULT) [address] [place] [phone] SARS-CoV-2 (COVID-19) RNA CARMEN+probe Ql (Unsp spec) Unknown Invalid Interpretation Code [facility] Comment on above: Performed By: #### 4 [id number] #### [facility] (DEFAULT) [address] [place] [address] Symptomatic as defined by CDC? Unknown Invalid Interpretation Code [facility] Comment on above: Performed By: #### 4 [id number] #### [facility] (DEFAULT) [address] [place] [address]673 UA Lvsod7zt 01-26-2024 UA Amorph. Few [facility] Comment on above: Order Comment: Urina lysis Microscopic order added on by Axxana Expert Rules system. Performed By: #### 4 [id number] #### [facility] (DEFAULT) [address] [place] [phone] UA Bacteria Trace [facility] Comment on above: Order Comment: Urina lysis Microscopic order added on by [employer] Expert Rules system. Performed By: #### 4 [id number] #### [facility] (DEFAULT) [address] [place] [address] 72174 UA RBC 0-2 Normal [facility] Comment on above: Order Comment: Urina lysis Microscopic order added on by [employer] Expert Rules system. Performed By: #### 4 [id number] #### [facility] (DEFAULT) [address] [place] [address] 07625 UA Squam Epi Few [facility] Comment on above: Order Comment: Urina lysis Microscopic order added on by [employer] Expert Rules system. Performed By: #### 4 [id number] #### [facility] (DEFAULT) [address] [place] [address] UA WBC 3-5 [facility] Comment on above: Order Comment: Urina lysis Microscopic order added on by [employer] Expert Rules system. Performed By: #### 4 [id number] #### [facility] (DEFAULT) [address] [place] [address] UA w Culture if Ind Standard on 01-26-2024 Breakpoint UA [facility] Comment on above: Performed By: #### 4 [id number] #### [facility] (DEFAULT) [address] [place] [address] Color (U) Yellow [facility] Comment on above: Performed By: #### 4 [id number] #### [facility] (DEFAULT) [address] [place] [address] Culture? Indicated Invalid Interpretation Code [facility] Comment on above: Result Comment: Resu lt created by rule GL_MAGR_ADD_UA_CULT1 Result created by rule GL_MAGR_ADD_UA_CULT Result created by rule GL_MAGR_ADD_UA_CULT1 Result created by rule GL_MAGR_ADD_UA_CULT Performed By: #### 4 [id number] #### [facility] (DEFAULT) [address] [place] [address] Glucose (U) [Mass/Vol] mg/dL Normal [facility] Comment on above: Performed By: #### 4 [id number] #### [facility] (DEFAULT) [address] [place] [address] Ketones Ql (U) Negative [facility] Comment on above: Performed By: #### 4 [id number] #### [facility] (DEFAULT) [address] [place] [address] Micro? Indicated Invalid Interpretation Code [facility] Comment on above: Result Comment: Resu lt created by rule GL_MAGR_ADD_UA_MICRO Performed By: #### 4 [id number] #### [facility] (DEFAULT) [address] [place] [address] 59932 UA Bilirubin Negative Normal [facility] Comment on above: Performed By: #### 4 [id number] #### [facility] (DEFAULT) [address] [place] [address] [phone] UA Blood TRACE Abnormal NEGATIVE [facility] Comment on above: Performed By: #### 4 [id number] #### [facility] (DEFAULT) [address] [place] [address] 91514 UA Clarity CLEAR Normal CLEAR [facility] Comment on above: Performed By: #### 4 [id number] #### [facility] (DEFAULT) [address] [place] [address] 74887 UA Leuk Est Negative Normal NEGATIVE [facility] Comment on above: Performed By: #### 4 [id number] #### [facility] (DEFAULT) [address] [place] [address] 27250 UA Nitrite Negative Normal NEGATIVE [facility] Comment on above: Performed By: #### 4 [id number] #### [facility] (DEFAULT) [address] [place] [address] 06426 UA pH 6.0 Normal 5-8 [facility] Comment on above: Performed By: #### 4 [id number] #### [facility] (DEFAULT) [address] [place] [address] 60343 UA Protein Negative Normal NEGATIVE [facility] Comment on above: Performed By: #### 4 [id number] #### [facility] (DEFAULT) [address] [place] [address] 68741 UA Spec Grav <=1.005 Normal 1.001-1.035 [facility] Comment on above: Performed By: #### 4 [id number] #### [facility] (DEFAULT) [address] [place] [address] 51856 UA Urobilinogen 0.2 mg/dL Normal 0.2-1.0 [facility] Comment on above: Performed By: #### 4 [id number] #### [facility] (DEFAULT) [address] [place] [address] 33634 Urine Source Clean Catch Normal [facility] Comment on above: Performed By: #### 4 [id number] #### [facility]) [address] [place] [address] Coding Summaryon 11-25-2023 Coding Summary HTMLBase 64 VwhgrewmVXr4oLa+PGhl YWQ+SH3HMYMoS05elGLj jF0rX2VWKUyMCdnrEKSW AEdKRoOzvvMkCY1skBMc ZXJu IC8+DZ9rEQCqZpfppWVq u6N0sGM6P67hkg9yLLmk hDF6ZLOfJtVjorasz7qx uBu8IOenSlmeNyBf RCDyjI60CIX5fV93Hd28 mBVrkJFof4dcbBh2HcTm YODtTBN8iCseURlpt3Zz NQVmY11peBSff1C4 IGNvbGxhcHNlOyBlbXB0 uW8nOHioasnuk7wcqatr Sjy8ya34wXZcm1V6pQJ9 M2FeirG0UUOuxOQu FaxdnEUQzO2iyddum4vl gyxoMaDoCNKzGAb4VEy2 STQbxYusNiXsTT72ZUC0 RBCygmMrH1CpXRBi lYdtByX6c8T4Xr8PL0LV BxzqP3OSLGPNOUwtvUF+ DQ26is31E1YaFieoRec4 LMXoOYU9eSP1fO3x MQEiHYzgq1Q5hQN0L6Nq ucZqis2jz0gkDXQcANhv Q11ytVHsz1N5DBTloLX3 IROxgWqnVyZezN27 Oyc+VIFxmSjiy4AqCuhc f7xwx7feyRy6FlipHURn phJqfLwxIVK7d0XaXp7r LUZorIO0gZJ3pH8n UqPyDzP7EYgwU873VnEb pRGmRzteM45yJ6IsbUC+ CNYuFln0REHulFpdEO5h U6QdYPRexubwmKKk dLrgEJ2wXVOsanwdPIBm jM8bANZbU2n8OtSoBsX9 VNiuF0KeKQEwlxgxRd12 zJ3gSbHvGlE6JQvt D7TfntY8INNrwBKjMXwn TVM3S16zd6C4EZDtRWCs DRD0aXZ8sB3qaFokxzaj bGVmdDsgdmVydGlj ZInhODvuZ596GHNnkGsw PkNvZGluZyBEYXRlOiAg MDUvMjgvMjAyNDwvdGQ+ MGDtWIQ1pGaeNDNf rDNrHIduDy2ltVuefPft MN6vWTVuesxwZQZlvV1g GIPydCRloHfwPM6kKYPv iejld423BhGiPRM2 JKAoqHKkW0JhmO4pElPt PUHgBJOeD3OiaNAnSZcl Z681YIsiXnU9DXLlmtSc J7IxMONnhXkjBeU4 q8W1Eg8Kx7MakyagW9Si oDJpUjAwDuhpEBe7C5Xg PjwvdHI+OH71XAZmND05 PHc4GEU0uUlkAAgw FEQvM2DtcV4uIdFsFTXv ZGRkOyc+PHRhYmxlIHdp ZHRoPScxMDAlJyBzdHls FE4zVj8dLILoAYDy dMphsVIxFuNeq6rjBSIu GPgyQX4pfDzcH7NumWS4 JBWdw3c1Wp46B39iA6Vi dXA+IMXroXY2wFK7 wS9kTpXsUoI7LDidW507 VgYxsDYhKjvae9lhv9ge mLf4PsO1NKTzuhSbdZub YJD1o6AqQr41Z54e IHdpZHRoPSIxNSUiIHZh zXbchp0xxW0gFk8+PGNv uKS4dVM7oW3uTtJuVlH1 YCyxE533PdBysDUu Tsgqy5jwc5yvaQv6McGv IQKaziKtoZieCVW2i0Dl Jd51W8QxcFdly9ZxMie0 sf44sNHnw2E1vUD8 M5RqYNVtokaqnAYbkFwx BR2kRWMviypkMLWnlT5k RJQsO1p6QtLyCeP0RBhj Q6GqngV3ZFFryPCz VVSggFWBaV6ksyqnz6wy gfarZcJpZKEoJYu3KEj2 SZXamYbkJvEpEWI6PzN8 XFF4cNEbeZ1gyPmq zahlgG1rYes+VVK7pRQi sZNLRW6wWxxijPS+PHRk UME4ePvqMQobGKDrjN4g XHTnI7x8GrHiNuI0 QLjlZ4HgraS4UJAxoVBs FVMnlYGNhS6ekxjyq4sj xtmbKlMuSWDyEMc1AFe5 LWFsaWduOiBsZWZ0 WeG1AJZ0wZAyeV5evVro soloxM0fYiz+QmlydGgg OVL6TGi0M7YeJjr3KOXl sLcnSN6ykRCfOXoc Ql5tcJjwqWbnGS4iUWDg oyiis798IuOkr1lqZGJz qLJgJCtaEBO6V45gn6L5 SXZxMJOtOUS2vNY8 uZ6scJjlrglgiWCfbTvs uaRuaQkuMBpaQCbbB691 OUTenYctVbQgVJm0X5Rs Kow4AWVbwLluAP6c yCHiNHgpAs1msAfwjGie ZM9tAKOeqgwtq244WyEa t6piYGZubTZiXWaoTAS0 E17hq0H5CPTaNEBd MVP9kHV0aM1yaOvynktu bGVmdDsgdmVydGljYWwt JWotQ896CNGlfKvrRtUd nYq4Q8NqLtv5OTHh bIdjNS2egUFbOHfgIs4z gTsgaZbsPJ0bLAEwnxyb b783EkEjo8ccBZNfrARv JQulPMH8U71ej9K9 PFRnGWIuBID4jTY8vL4e bGlnbjogbGVmdDsgdmVy jCbaRMdtOXedY350LZUe cDsnPlBhdGllbnQg RAjnWDl4X9GcLdasbII+ LT01BUHuFJ71lBWsnXRs p0hrmMg1OrYtLZGcSND8 qDslJOoqq8BbUPOg A87smTBrr2V2SUQaxKcx lVUiNnFxfLS6iR4bLDok qvmrq1jfuootFyfci7qz fp73zT71I45pEJis ZHRoPSIzMCUiIHZhbGln tv1saT4bCs0+PGNvbCB3 wPF0gJ3eOUOvGaP7VCxv R212ZcUlxBEaZhhp h6lqs1thdZf1JbY8VEOd ocPwxJsiACY6e0MnUu69 J15aRJhpIRRrIZKfRNHm AOHmgDrowr1hlI8n Ii8+KGEgdFQ4eKK2tL6a SwEfCjC3YIazS044EnAd rFOfHckpO81bY2EsfHG+ ZIQcImh7PUWlaXyp GD3axFObMXliIt6kGPA5 LtUnUgCiSEupS8SzHBGl njpyplkqpWD9XMOuRGXb qW46Re8cnHxnHQOh zPYWrL4rumraf7jjqtuz ZrYkCTQtTUv8GEk4FISx kBmyQtJzDFU0BcW6DQF7 jRBwqG8maTepnpbs kL7eN1CmCFTfspdsYp53 mA3mKaLjPpH5BWfzUqa+ VA3OBIMQUJGGWDxFNCUH UNACICZ6B6KkDus4 MEAwdTqtTC4pfDHwGUzs Sb8jdVsdkMrxYW5mAUHh miggAZRddJ6zFERcxMKv mTsjGK1fKSBavilr g834IxGfHQP4MHRfoKJd M8RyxC2mWiQsZCImRMVy J3TboURrUWjyT160POnm HyA7OETuruJlH2Zi AYVwmIsdViZ9w2Z7Al9x Km8kXV6xLTzuZF47XM67 kOJau4E0eJO6V7AnWPZz ykgxsfsoqQW3INHk FRAcsA29sIWzPEbaYf2c t1R9b771YERqTYQilK23 Rr8evDjmWVMjaCSDbJ4z mwuxb8lmjnxoZmVo TCOkJJk1CUt3XAXdiHgl HtAdROS6VzT4ZMN2eVNw pL9tiNexbbzdsU7yVzm+ GoTuWVIhxyB8A0Un Jfs2OUEikHdnNK0zxQTf UAgyXa2awOidpRdaIN8s NOUwvmroTUBnuO0lVJZl qWEorEbfPE3qZJWl pslrm757XvFdEVC6JWAq mEQmU8YijT8hNeJcIHGu FAEfO6PgcWYzHPthD817 MDpzYzC4LZDnzwVg K9AgBKWlhSksJrQ2q6B2 Ht6RIE4OAEU7K0UuCgu7 APHnfYghMK1waEPlGUhv Np1ixSsazWujKW4s KIOdqemxWBBvmG3gVUCq kYBhgMxmGW3tLPCorqhp k325HmFeRNF8CHKrlAJn L4UdhP6bAdAiFSJm EXDpE9LsgKBiQCdeT885 LAjsDjR9TAOzvsRhB0Sx CZAgpVatTdN8u0T2Pi4H mAFbW4GrC5n1D5Ym PjwvdHI+QD36XIBrJF71 hUBhgZDys5vjjHj8CeAy IFQyHGD0yUikUMasn4Od KBYpK55xxBGcj2O9 IGNvbGxhcHNlOyBlbXB0 gQ8uVVlbflrfz5sptucr Hizmx8bmja34bD99E16p IHdpZHRoPSIzMCUi CZXfpTobkk5tfZ0gDn8+ RXWkeZT3jZK6tT9sSzVa BtL0NFsvY883XhJplVBh Azckf2bdk0zmiQc0 IjIwJSIgdmFsaWduPSJ0 h5LpPw81A81nUQsrFRNa KRWvJHSbTEMynHvlvp2f fG9bNt8+YO9xk6nj kd47tK49aNZ+PHRkIHN0 sApmRJohTQAzzL7lJIpd OeG3JUXcWeXtzN91bHKi IXgfYd9hgOctxJwb EZ2lDYTuodidk168KeIt m4sxEGDseCVwLMyhVWU0 P41bj4Q9FUBgBUUkIVS6 uXK4aB9vuXlqoprz bGVmdDsgdmVydGljYWwt GVmyH163IOGiiLtzDfDg aNWsW6naajRPXP4lKqop dGQ+IBEtPDS2xKsd IJxdJDWobM1cJKLtD1q2 CgKuQjB6KSgsE1LjapV9 TUMasERjBVEtpQTYzZ1b cmmna2qmxcxaRvPk NJOfKGb4JYk9RHQioNha YxSkDGB2McW3EDS1yPQj rI9xbUakfdfcuC6xXys+ RklOOjwvdGQ+PHRk IHK7yIyfXFdvNSUlqY3f RKMhB9x5KzKiGvD1KFku J7CxqrS9SSHfrSSbVEGm xTSMrN0ajcoiw8sx xsdvQxJcWAMbOEk9GDd7 NFWzfRvsIaCkNZL5XpD5 CSR2qVSqpZ0vaFkrygty lN0uWqn+TVJOOjwv dGQ+KHGgORI2xSmtSJhp GSHizY5eTZRzF2z1FxMk MoE9JRflQ4NowyW9FOCe tLFlPMHkwKESyG9r mgpef4oswsxmBoVxUSAs WNx4UQn4KJBnwPyrTzDd MOH7XdL1KHP0uLPffP0z dMfnddgmsI7kRhg+ LTE1TWC2OD79UE06X8Zc PjwvdGFibGU+PHRhYmxl IHdpZHRoPScxMDAlJyBz kXxaCV8rEv1fJJVr LWN (more content not included)... [facility] ED Clinical Summaryon 2023 ED Clinical Summary [facility] - Emergency Department [address] [place] [address] ED Clinical Summary PERSON INFORMATION Name: DOUGLAS CORDOVA Age: 28 Years Sex: FEMALE : 1995 MRN: Acct#: Visit Reason: Skin problem; SKIN PROBLEM- LFT ARM Arrival: 11/17/2023 13:52:18 Discharge: 11/17/2023 15:05:00 LOS: 000 01:13 Check In: 11/17/2023 13:52:18 Checkout:11/17/2023 15:05:00 Address: [address] [facility] [address] PCP: ARCADIO IGLESIAS PROVIDER INFORMATION Provider Role Assigned Unassigned Mami Sahni PA-C ED PA 11/17/2023 14:18:47 Catherine RN, Jennyfer Weinstein ED Nurse 11/17/2023 14:22:48 VITALS INFORMATION Vital Sign Triage Latest Temperature Tympanic Temperature Temporal Artery 37 DegC Pulse Rate 93 bpm 93 bpm O2 Sat 99 % 99 % Respiratory Rate 18 br/min 18 br/min Blood Pressure /93 mmHg /93 mmHg MEDICAL INFORMATION Medications Given: Medication Dose Route doxycycline (doxycycline hyclate) 100 mg Oral Allergy Information: shellfish; penicillin PHYSICIAN DOCUMENTATION DISCHARGE INFORMATION: Discharge Disposition: Home Discharge Location: Home PATIENT EDUCATION INFORMATION Instructions: Cellulitis, Adult, [id number] Follow-Up: With: Address: When: Call office to schedule an appointment Within 3 to 5 days DIAGNOSIS: 1:Left arm cellulitis Patient Understands: Yes - Patient/family/careg iver verbalizes understanding of instructions given Comment: [facility] ED Patient Summaryon 024 ED Patient Summary [facility] - Emergency Department [address] [id number] PATIENT DISCHARGE INSTRUCTIONS Patient Information Name: DOUGLAS CORDOVA Age: 28 Years Date of : 1995 Reason For Visit: Skin problem; SKIN PROBLEM- LFT ARM Arrival Time: 11/17/2023 13:52:18 Primary Care Physician: ARCADIO IGLESIAS Attending Physician: Jerson Estrada MD Comment: Visit Diagnosis: Diagnoses This Visit Left arm cellulitis (L03.114) Skin problem ([id number]) The Pharmacy at [facility] is open Friday through Friday from [...] alcohol and/or drug addiction problems; contact the [facility] 20/01 Crisis Hotline -Text 2XPWV qt 113234. If you received any narcotics, sedation, or [...] sign any legal documents With: Address: When: Call office to schedule an appointment Within 3 to 5 days Medication Information: The exam and treatment you received today in the [facility] Emergency Department were for an urgent problem and are not intended as complete care. It is important for you to follow up with a doctor, nurse practitioner, or physician?s email marketing assistant for ongoing care. If your symptoms [...] so we can reach you if necessary. [facility] Emergency Department has provided you with a complete list of medications post discharge. Please inform your unarmed security officer/provider of your visit and for further instruction on these medications. Any specific questions regarding your chronic medications and dosages should be discussed with your primary care physician(s) and/or pharmacist. New Medications [id number], [address], [place] [id number], [phone] doxycycline (doxycycline hyclate 100 mg oral capsule) 1 cap(s) Oral (given by mouth) Every 12 hours scheduled time for 10 Days. Refills: 0. Additional medications on your home medication list not specifically addressed. Please contact the ordering physician if you have questions about these medications. amphetamine-dextroam phetamine (Adderall 30 mg oral tablet) 1 tab(s) Oral (given by mouth) every day. amphetamine-dextroam phetamine (amphetamine-dextroa mphetamine 30 mg oral capsule, extended release) 1 cap(s) Oral (given by mouth) every day. Durable Medical Equipment for Prescription ([employer]gonomicsIPSOL REPUBLIC DASH PODS (GEN 4) 5PK) change q 72 hours. gabapentin (gabapentin 800 mg oral tablet) 1 tab(s) Oral (given by mouth) 3 times a day (scheduled). insulin aspart (NovoLOG FlexPen 100 units/mL injectable solution) 70-150 0 151-200 4 units 201-250 8 units 251-300 10 units 301-350 12 units 351-400 16 units. Refills: 0. insulin glargine (Lantus Solostar Pen 100 units/mL subcutaneous solution) 20 unit(s) Subcutaneous (under the skin) every day. Refills: 0. insulin lispro (HumaLOG 100 units/mL injectable solution) Visit Information Allergies: Substance Reaction Symptoms Type Comments penicillin Drug shellfish Food Vital Signs: Vitals and Measurements this Visit (last charted value for your 11/17/2023 visit) Vital Signs This Visit Temperature Temporal Artery: 37 DegC Peripheral Pulse Rate: 93 bpm Respiratory Rate: 18 br/min Systolic Blood Pressure: 134 mmHg Diastolic Blood Pressure: 93 mmHg SpO2: 99 % Oxygen Therapy: Room air Measurements This Visit Height/Length Measured: 63.6 cm Weight Measured: 172.72 kg Weight Dosin.720 kg Body Mass Index: 427 kg/m2 Problems List (more content not included)... Normal [facility] POCT Glucose Levelon 024 Glucose [Mass/Vol] 307 mg/dL High [address] [facility] Comment on above: Result Comment: Resu lt corrected during lab audit SD 09/16/2023 13:27:08 EDT Performed By: #### 4 [id number] #### [facility] (DEFAULT) [address] [place] [address] Glucose [Mass/Vol] 384 mg/dL [address] Comment on above: Result Comment: Resu lt corrected during lab audit SD 09/16/2023 13:27:08 EDT Performed By: #### 4 [id number] ####[facility] (DEFAULT)[address] [place] [address] Coding Summaryon 09-01-2023 [facility] SlfjupjzNVc6pXl+PGhl YWQ+VQ4QOZZgQ66ixJEc lU4iR1QOEAtAZuipLMBL CPrEPkPjylYzED7baVMs ZXJu IC8+YM8nCQLtGwhoiZCd o0M2rWA0W49ges1lVHpq lIV4DDKwWtXbvbaxh2rr nHo7YKntWvuhXoAm OHJpsF44WGQ1tL13Lv43 fVHgnNMzm3cnxOi3LiLy ZMRhVFX0lHhlJVdhb2Ry YORoI16idGWwd3Q1 IGNvbGxhcHNlOyBlbXB0 cU5dRYwtpcbei5bkpqyv Npw0xc51gEVgg5X9tZZ6 B4HblhK6TSTyaSEb PefzpCHSoJ6qyessh7mi gwedQvLsQVPrQSg1HUl6 NPZenLraAkOoTW16ISN1 GJFsknXrC4ZsCUQm qUgsXsQ4d7E2Fw3HT2BZ SgdpZ3GWTYDWZYktlRO+ XH56zw58I9RaIsdiStu3 JBHlMWX2tBY3eH6b FDCgFOevu8N9nHG9P2Sz imInrk0jr6mgWPPgUPtu D72yeIOvb3F6EVBhgTJ7 EDPttJkaDaNzpK98 Oyc+CKNgrTcfx0QcWvcs j5egn1bezRk8UfgbEQFn mkEsuIepEYD5y9NdHv3y ARJcsPY5sTM1tQ6n VsEtTmW0YRnoY027JhVs qEQpWcywH01rN6PllIB+ NFXbCbo5TPKgdAykSN1m N5EgGHPotzpfvTJc uAloUO7nQCBsvyzdNSWv vU6rBGSfX5e6LjUaNgU7 QVarW9KvDOZhumvmDk86 vG6vSjPbMfZ2XKoh B8HrccD2VRDibVXgRSwg TAR8N02dm1X2BFMdETCm POO0mQB3xK5ptYkyoqst bGVmdDsgdmVydGlj WKifPPwqB955FYLkcCzz PkNvZGluZyBEYXRlOiAg MDMvMDQvMjAyNDwvdGQ+ RMWuSNM1dGngDDQd jAXjJNvjHn9ugLsogDlq IA4dBKIcujeqUMWkpV1c CGKvoYDwdEjfQZ5yNTDq ywqzn111NdLgIOM0 KBWlpTGfN5VuzB1aYaYz AJZuRTVoZ0WxqJYjESrb S341EMelTnZ3TDTuslNg K6NiKWBojRboYiJ3 u4F3Jp0Ek4RynydmS6Px mQMfQoNrWxrfQJa1C5Dt PjwvdHI+NQ14GWPwTT52 AJi7CXN2vTjjENcx BOPeE5XvoF9xSdYkQKAq ZGRkOyc+PHRhYmxlIHdp ZHRoPScxMDAlJyBzdHls JF7zIx9qVOGgNOSo vAmgjWIuXpXjh5paHSTc NSzkTE5myXsrT3YqjYX2 AWIrl3l5Ru14S99yZ3Qh dXA+BKAusJI0dNV7 hW7wAhGyHuM0AQhbT626 BiMozCBiCcxgn1mhm9ry nPs6BqU7LVEikhVmjEvs VKD5h9WxSt65N67u IHdpZHRoPSIxNSUiIHZh qTzfuy9aeF5rNn5+PGNv aNJ9qYO8zI3oZbGgRcQ2 DIfoT536AyUyfELb Edyxs3elo4zjyGd1DmOe RPHdsxXrxVkaWVO6y8Sr Om02U6JykFcvw9DnSgx5 hh68yKHcq2N6oOX0 Q6AgRTPsepivlNUyoEbm RO8zBQReleyeSYPidB5q BQVvZ9v2JrMgMiU5ODdr D3PpqbK7YVTupIPh UYPyqVDUuB7vabesm3ya merpOmCdNWOiWOx3PLs4 ESXoyQdnGkAzXFZ4DmW4 WFP4cDKpiU3ikUof xsqbsG2lAek+CWZ3vHBj jMBPTC2lStthqIO+PHRk AUP6bMarEUbeYJXdoD5j IMPnN4g2WwMiNaM9 OSvtL3MnxbR2XUIzyVWo IILhcJVAgY6xyjxec9ko yifvXxPcEMWyYQb1ULc2 LWFsaWduOiBsZWZ0 XpA9KGC9lOKdmZ0svMsh nfjwpY4jHyr+QmlydGgg MQB3INh4I0OxUtj2RIBg fDjrJJ6prZAiEQfj Yb4vgAdazUsbCW8uJORh ckspi140PrRsz8gdRNAl mYRvJCrbBQY2H75pi2I1 HRXiHKEmLJB3sUB5 lK2mtIejnpanxTAomTgp wtZdmNukOPseXQwpO737 GLKspTvgFqQtGLs0Z0Hv Gkk9FSAtpDjgYD5d yNHjCQbjZn5gaGqwuUtn FV5yMOIdlfdsc835EsRn c1xhACGkaWDsKUirLBK6 P86lc7J5GSTcLQYs UMO4xCE9bR3stGochpjx bGVmdDsgdmVydGljYWwt LEgnF137IIHokOckDsQz lGj3E4KhMpg2ZWFv sQwpHH1zxODiIVsgEx7p uEqynUxmES5iEUNhjhcb r085XbPiy3soEBWwbZGd VNxgUYR0G51be7Q3 DMHsTHOdPBC7eIV2bE1g bGlnbjogbGVmdDsgdmVy rUbeMMarDKfeW865NXNx cDsnPlBhdGllbnQg QEbsBVm7X5GsKjaglDE+ QW47BHQlUC89fVEktMLq j9gvhFm7ObSaQUBpQCU3 hVojZJzyq1XiBXUn O58iaXEhd3K0NFFyyGqn zKUtSmTwmQJ9lE1gZBvg jmdui7efsorbZsuaj5ze hr03rJ60V02zVFey ZHRoPSIzMCUiIHZhbGln ov4jqV9qSa0+PGNvbCB3 nUT8jV9eXDIbDnP3DGay V737LjTgcHQjYqre a2eza0bzePt2OqO8TFJt leJchUtnUIM4r7GdFt94 D77iEXvqLBPsODAkKVAp VDSytWzpmg2jsR1m Ii8+CXRzgYP7pJR8dP5d UxRnXvA7WFqgT207SaWc gNLnZgroM09sG2AvmSH+ BNOgFth4BJZtdXpa FK5riPMtVZbzEe4tRFD8 EgWyRaVlZEuoG1WrDKEy cbvdixrwbDB0WKQnNCSv eN24Po8qhWzkNAZs qQTJnZ2zvombh6maqqcx DoThDQLlCRh0SMr2BZOk lAdaYhClAYL9HdB2CII6 cFVweI1ywXzroism zB4zI8KeEHSplirbKf80 nD1lEtJvCoM8RWikAej+ NW2DQJOJYNKCWSfYBPEZ GQMARCW4O6UhSxw0 ULXrnIlsNG3spQStNHjo Py2wjSrtgFxkGG9vUUMl tboqSLWgfS0oXIJkaUCu jJcqJR3tCXYmhjsy s439UsNgLDN7BBDmfNSd G5UzhG6qDoAqCIYsTEXb Z0ZbrASaIGajF646SYdr PeT0IKDyfcDeF4Jh LIKqdOsfFpF7v3T5Sa1i Bt2dJP6tAAvlFI40WX17 oAPyg0H1xSQ0T4TtGFEz gbocuodbcJJ6MLAg GFNemN42rPDnPDpxAb9n h2C1d746MDWtDBXfsL43 Nl0jmYjmUNBlaKIHkC6h nvgos5nuhtvcEjCd GWWmYKg5KOe4ALNhlSnk XcSdGLE9UsV5QGM6tGQm jI7gtBlziqniqE6uBrs+ MxGzSRPsflL4Q5Jp Obd8KLWxbTenUL0agXDi TTejBe7tpRguePbcSH3b GXIzqqnkHWFrdB2rGEVw pWCdqDusZO5pRCBn insym567OjXtMRI9XFKl sYQzH7TfnS2rQqNgCKAc JCZkX0XnmOLfYBkvQ471 OZmgQlW7FOUijcXr Q2PwUJXaeOgsQgE1g6D4 Qc7NOT6ITXW0O1SaSxh7 CZBkwOrxCS1jdSRbODlm Xb4qfOrldYflPY5n GNMxkxjkYQIadS9dIKPn mTKxkMkgPO0sZZPesfzv l591AuEdXCG0TCJfmCPt F3RexX2uHbGjBZNi GCUsN1RurCIoFJyrJ099 JFbjIbP0YMQyapAcJ1Aj MRWrfYlnVeT5g8Q5Dd6Q guUpbPirdbY4O3Si PjwvdHI+QR56TSOoTR69 sYUbnRFup8fdmMg1AtOp XVLnUNX9mFdqNRalj8Ox CWPhM76zxKBrd8K4 IGNvbGxhcHNlOyBlbXB0 dT5fLJhnyltbz2okvsxm Obwnw4qmwo76nL62J49f IHdpZHRoPSIzMCUi NJQjgFfigw5ktN9rLf3+ SCOrtIC4gAE6sT4aRoRi XxV1VNjiL405XlXobQDd Gekak1sdm3xibBa7 IjIwJSIgdmFsaWduPSJ0 k6CcOg24E94hQVtrCXXc ZXKxPIHrPSZndCxaay9n kX1dCs8+WJ1wb3wb dl79rH41oXW+PHRkIHN0 oLtrWHbcPMMccH2zHJdm CuB1NWYrTcYupK98gIIj YClgSf9qeUnaeZhi LC4kKCElzjeqg728NqWm c5hbTZBueTPwGUxrWVY5 W33tj8E5WQLbOOVyHPK1 mWY3fJ8qeOppfogr bGVmdDsgdmVydGljYWwt JUueF680NYEylUqoFlAd nOClS1vmxtRZIQ2hRyav dGQ+SBWbKYV7mVnz GCkcQOQjwQ1dLENdK6e7 YuZbVkI4XIlcU5GhibA9 YRHpbNCpYHIofIMNcU9w lbtbi8qiczsaJoQl PLZcSDn8WTf2SIMpyWhz ZyOmSDZ4AnP6ULF7gTZq rN4byEwcctuyzL8lMew+ RklOOjwvdGQ+PHRk IDA1pPnhJFdqVDZohQ1x AQCiF9k2BpPnWkF0UMag D0JcgwR8OBRycBZvDHTp dYOWdN2hzmrou7fj aoywDgEuZSZmRWp3GGs6 BAUztCfsUjIrGAN6JlZ2 CJY9dMGsaU5hoCkabuej hU4zLqv+TVJOOjwv dGQ+KLOhKJG0qYecLUxo HKBshL3lTTDwV3i3ShVn OrH0AEboT1RqvwS8KUMb hWUdIGMowOBQrJ7l lqhne3scxtrqZaNyYQNg LVo2CNo4LGEhdBssWjAp YQB9GeF2IUC2zFAgmM3k aBvhrmkcxK3cHah+ POF7UNQ4ZQ40RD16Y9Wr PjwvdGFibGU+PHRhYmxl IHdpZHRoPScxMDAlJyBz zEbiGT7nFu4nMGTu LWN (more content not included)... [facility] Provider [place] 07-23-2023 Provider Orders [id number] .[id number] [facility] Provider [place] 07-18-2023 Provider Orders [id number] #1.00OTGTIFF [facility] BASIC METABOLIC PANLon 07-04 Anion gap [Moles/Vol] 7 mmol/L Normal 5-15 [facility] Comment on above: Performed By: #### 6 873-4, 17831-1, 78755-2, CMP, 47837-4, HA1C, CBCA #### [facility] ([id number]) [address], [address] [place] [address] Calcium [Mass/Vol] 7.8 mg/dL Low 8.5-10.5 [facility] Comment on above: Performed By: #### 6 873-4, 86576-4, 38338-5, CMP, 95386-3, HA1C, CBCA #### [facility] ([id number]) [address], [facility] [address] [place] [address] Chloride [Moles/Vol] 98 mmol/L Normal 98-109 [facility] Comment on above: Performed By: #### 6 873-4, 18442-2, 54163-2, CMP, 56350-1, HA1C, CBCA #### [facility] ([id number]) [address], [address] [place] [address] CO2 [Moles/Vol] 27 mmol/L Normal 22-32 [facility] Comment on above: Performed By: #### 6 873-4, 04457-5, 99276-3, CMP, 60533-8, HA1C, CBCA #### [facility] ([id number]) [address], [address] [place] [address] Creatinine [Mass/Vol] 0.50 mg/dL Normal 0.40-1.00 [facility] Comment on above: Result Comment: METH OD TRACEABLE TO IDMS STANDARD Performed By: #### 6 873-4, 42346-1, 44502-2, CMP, 84140-7, HA1C, CBCA #### [facility] ([id number]) [address], [address] [place] [address] eGFR (CKD-EPI) NON-RACE DEPENDENT >90 Normal >59 [facility] Comment on above: Result Comment: Reported eGFR is based on the CKD-EPI 2020 equation that does not use a race coefficient. Performed By: #### 6 873-4, 88978-2, 61422-9, CMP, 77729-0, HA1C, CBCA #### [facility] ([id number]) [address], [address] [place] [address] Glucose [Mass/Vol] 290 mg/dL High 65-99 [facility] Comment on above: Performed By: #### 6 873-4, 65662-8, 50594-8, CMP, 44766-6, HA1C, CBCA #### [facility] ([id number]) [address], [address] [place] [address] Potassium [Moles/Vol] 3.7 mmol/L Normal 3.5-5.0 [facility] Comment on above: Performed By: #### 6 873-4, 84134-5, 91770-1, CMP, 55387-1, HA1C, CBCA #### [facility] ([id number]) [address], [address] [place] [address] Sodium [Moles/Vol] 132 mmol/L Low 134-146 [facility] Comment on above: Performed By: #### 6 873-4, 93988-8, 87174-2, CMP, 41396-2, HA1C, CBCA #### [facility] ([id number]) [address], [address] [place] [address] Urea nitrogen [Mass/Vol] 2 mg/dL Low 5-23 [facility] Comment on above: Performed By: #### 6 873-4, 94795-7, 81420-7, CMP, 24549-7, HA1C, CBCA #### [facility] ([id number]) [address], [address] [place] [address] Beta hydroxybutyrate [Moles/ Vol]on 07-04-2023 BetaHydroxybutyrate 0.38 mmol/L High 0.02-0.27 [facility] Comment on above: Performed By: #### 6 873-4, 95971-8, 38033-1, CMP, 65238-9, HA1C, CBCA #### [facility] ([id number]) [address], [address] [place] [address] BetaHydroxybutyrate <0.10 Normal 0.02-0.27 [facility] Comment on above: Performed By: #### 6 873-4, 80693-7, 04698-0, CMP, 15956-3, HA1C, CBCA #### [facility] ([id number]) [address], [address] [place] [address] BetaHydroxybutyrateon 2023 Beta hydroxybutyrate [Moles/Vol] mmol/L 0.02 - 0.27 mmol/L [facility] CBC AND AUTO DIFFon 07-04-19 24 ABSOLUTE BASOPHIL 0.0 X10E9/L Normal 0.0-0.2 [facility] Comment on above: Performed By: #### 6 873-4, 67668-2, 11934-9, CMP, 03643-1, HA1C, CBCA #### [facility] ([id number]) [address], [address] [place] [address] ABSOLUTE NEUTROPHIL 5.2 X10E9/L Normal 1.5-6.6 [facility] Comment on above: Performed By: #### 6 873-4, 45436-0, 41295-8, CMP, 50837-3, HA1C, CBCA #### [facility] ([id number]) [address], [address] [place] [address] Basophils/100 WBC (Bld) 0.7 % Normal [facility] Comment on above: Performed By: #### 6 873-4, 02717-6, 28261-5, CMP, 13240-8, HA1C, CBCA #### [facility] ([id number]) [address], [facility] [address] [place] [address] Eosinophils (Bld) [#/Vol] 0.0 10*3/uL Normal 0.0-0.4 [facility] Comment on above: Performed By: #### 6 873-4, 39568-1, 94858-4, CMP, 77132-5, HA1C, CBCA #### [facility] ([id number]) [address] [address] Eosinophils/100 WBC (Bld) 0.6 % Normal [facility] Comment on above: Performed By: #### 6 873-4, 87558-0, 68931-3, CMP, 43659-8, HA1C, CBCA #### [facility] ([id number]) [address] [address] Erythrocyte distribution width (RBC) [Ratio] 15.3 % High 11.5-15.0 [facility] Comment on above: Performed By: #### 6 873-4, 84889-1, 10050-2, CMP, 79040-9, HA1C, CBCA #### [facility] ([id number]) [address] [address] Hematocrit (Bld) [Volume fraction] 36.1 % Normal 35-47 [facility] Comment on above: Performed By: #### 6 873-4, 37645-5, 26136-8, CMP, 67906-3, HA1C, CBCA #### [facility] ([id number]) [address] [address] Hemoglobin (Bld) [Mass/Vol] 11.9 g/dL Normal 11.7-15.5 [facility] Comment on above: Performed By: #### 6 873-4, 23417-1, 96475-1, CMP, 72851-4, HA1C, CBCA #### [facility] ([id number]) [address], [facility] [address] [place] [address] Lymphocytes (Bld) [#/Vol] 1.5 10*3/uL Normal 1.0-3.5 [facility] Comment on above: Performed By: #### 6 873-4, 76349-4, 73386-2, CMP, 35062-2, HA1C, CBCA #### [facility] ([id number]) [address], [address] [address] Lymphocytes/100 WBC (Bld) 21.1 % Normal [facility] Comment on above: Performed By: #### 6 873-4, 23570-5, 66845-5, CMP, 88759-2, HA1C, CBCA #### [facility] ([id number]) [address], [address] [address] MCH (RBC) [Entitic mass] 25.2 pg Low 27-34 [facility] Comment on above: Performed By: #### 6 873-4, 60637-5, 10176-6, CMP, 64600-0, HA1C, CBCA #### [facility] ([id number]) [address] [address] MCHC (RBC) [Mass/Vol] 33.0 g/dL Normal 32-36 [facility] Comment on above: Performed By: #### 6 873-4, 81206-4, 69874-6, CMP, 21758-8, HA1C, CBCA #### [facility] ([id number]) [address], [address] [address] MCV (RBC) [Entitic vol] 76 fL Low 80-100 [facility] Comment on above: Performed By: #### 6 873-4, 69667-9, 23128-9, CMP, 13630-3, HA1C, CBCA #### [facility] ([id number]) [address], [address] [place] [address] Monocytes (Bld) [#/Vol] 0.5 10*3/uL Normal 0-0.9 [facility] Comment on above: Performed By: #### 6 873-4, 70781-3, 20183-2, CMP, 73632-9, HA1C, CBCA #### [facility] ([id number]) [address], [address] [place] [address] Monocytes/100 WBC (Bld) 6.7 % Normal [facility] Comment on above: Performed By: #### 6 873-4, 08592-0, 41857-6, CMP, 10229-7, HA1C, CBCA #### [facility] ([id number]) [address], [address] [place] [address] Neutrophils/100 WBC (Bld) 70.9 % Normal [facility] Comment on above: Performed By: #### 6 873-4, 54667-2, 44199-7, CMP, 70137-4, HA1C, CBCA #### [facility] ([id number]) [address], [address] [place] [address] Platelet mean volume (Bld) [Entitic vol] 7.8 fL Normal 7-12 [facility] Comment on above: Performed By: #### 6 873-4, 79239-0, 25760-6, CMP, 44889-9, HA1C, CBCA #### [facility] ([id number]) [address], [address] [place] [address] Platelets (Bld) [#/Vol] 221 10*3/uL Normal 150-450 [facility] Comment on above: Performed By: #### 6 873-4, 36920-4, 04608-1, CMP, 84059-1, HA1C, CBCA #### [facility] ([id number]) [address], [address] [place] [address] RBC COUNT 4.72 X10E12/L Normal 3.80-5.20 [facility] Comment on above: Performed By: #### 6 873-4, 04996-7, 53761-6, CMP, 09495-9, HA1C, CBCA #### [facility] ([id number]) [address], [address] [place] [address] WBC (Bld) [#/Vol] 7.3 10*3/uL Normal 4.0-11.0 [facility] Comment on above: Performed By: #### 6 873-4, 07965-5, 04461-2, CMP, 96133-4, HA1C, CBCA #### [facility] ([id number]) [address], [address] [place] [address] ABSOLUTE BASOPHIL 0.0 X10E9/L Normal 0.0-0.2 [facility] Comment on above: Performed By: #### 6 873-4, 21226-0, 20634-9, CMP, 23014-6, HA1C, CBCA #### [facility] ([id number]) [address], [address] [place] [address] ABSOLUTE NEUTROPHIL 5.2 X10E9/L Normal 1.5-6.6 [facility] Comment on above: Performed By: #### 6 873-4, 02513-4, 44300-3, CMP, 66745-4, HA1C, CBCA #### [facility] ([id number]) [address] [address] [place] [address] Basophils/100 WBC (Bld) 0.3 % Normal [facility] Comment on above: Performed By: #### 6 873-4, 81265-4, 21393-0, CMP, 85444-4, HA1C, CBCA #### [facility] ([id number]) [address] [place] [address] Eosinophils (Bld) [#/Vol] 0.0 10*3/uL Normal 0.0-0.4 [facility] Comment on above: Performed By: #### 6 873-4, 76038-4, 84105-5, CMP, 83374-9, HA1C, CBCA #### [facility] ([id number]) [address], [address] [place] [address] Eosinophils/100 WBC (Bld) 0.2 % Normal [facility] Comment on above: Performed By: #### 6 873-4, 60779-2, 21889-0, CMP, 91457-5, HA1C, CBCA #### [facility] ([id number]) [address], [facility] [address] [place] [address] Erythrocyte distribution width (RBC) [Ratio] 15.4 % High 11.5-15.0 [facility] Comment on above: Performed By: #### 6 873-4, 68668-0, 88327-6, CMP, 44601-2, HA1C, CBCA #### [facility] ([id number]) [address], [facility] [address] [place] [address] Hematocrit (Bld) [Volume fraction] 30.9 % Low 35-47 [facility] Comment on above: Performed By: #### 6 873-4, 47711-5, 66535-0, CMP, 57820-0, HA1C, CBCA #### [facility] ([id number]) [address], [facility] [address] [place] [address] Hemoglobin (Bld) [Mass/Vol] 10.4 g/dL Low 11.7-15.5 [facility] Comment on above: Performed By: #### 6 873-4, 68544-1, 46194-4, CMP, 41227-1, HA1C, CBCA #### [facility] ([id number]) [address], [address] [place] [address] Lymphocytes (Bld) [#/Vol] 1.7 10*3/uL Normal 1.0-3.5 [facility] Comment on above: Performed By: #### 6 873-4, 27882-4, 68694-2, CMP, 11466-3, HA1C, CBCA #### [facility] ([id number]) [address], [address] [place] [address] Lymphocytes/100 WBC (Bld) 22.6 % Normal [facility] Comment on above: Performed By: #### 6 873-4, 87249-8, 89583-6, CMP, 31028-4, HA1C, CBCA #### [facility] ([id number]) [address], [address] [place] [address] MCH (RBC) [Entitic mass] 25.8 pg Low 27-34 [facility] Comment on above: Performed By: #### 6 873-4, 77838-6, 55651-5, CMP, 44156-8, HA1C, CBCA #### [facility] ([id number]) [address], [address] [place] [address] MCHC (RBC) [Mass/Vol] 33.7 g/dL Normal 32-36 [facility] Comment on above: Performed By: #### 6 873-4, 30763-7, 34453-3, CMP, 70434-5, HA1C, CBCA #### [facility] ([id number]) [address] [address] MCV (RBC) [Entitic vol] 77 fL Low 80-100 [facility] Comment on above: Performed By: #### 6 873-4, 21903-2, 01281-0, CMP, 38461-9, HA1C, CBCA #### [facility] ([id number]) [address], [address] [place] [address] Monocytes (Bld) [#/Vol] 0.6 10*3/uL Normal 0-0.9 [facility] Comment on above: Performed By: #### 6 873-4, 82424-9, 76306-9, CMP, 68305-1, HA1C, CBCA #### [facility] ([id number]) [address], [address] [place] [address] Monocytes/100 WBC (Bld) 7.9 % Normal [facility] Comment on above: Performed By: #### 6 873-4, 66981-1, 55433-2, CMP, 82770-3, HA1C, CBCA #### [facility] ([id number]) [address] [place] [address] Neutrophils/100 WBC (Bld) 69.0 % Normal [facility] Comment on above: Performed By: #### 6 873-4, 42517-4, 70582-0, CMP, 21195-8, HA1C, CBCA #### [facility] ([id number]) [address], [address] [place] [address] Platelet mean volume (Bld) [Entitic vol] 7.6 fL Normal 7-12 [facility] Comment on above: Performed By: #### 6 873-4, 89754-1, 62314-9, CMP, 37080-9, HA1C, CBCA #### [facility] ([id number]) [address], [address] [place] [address] Platelets (Bld) [#/Vol] 221 10*3/uL Normal 150-450 [facility] Comment on above: Performed By: #### 6 873-4, 60457-0, 09007-7, CMP, 07634-1, HA1C, CBCA #### [facility] ([id number]) [address], [address] [place] [address] RBC COUNT 4.03 X10E12/L Normal 3.80-5.20 [facility] Comment on above: Performed By: #### 6 873-4, 91574-5, 35713-5, CMP, 03700-0, HA1C, CBCA #### [facility] ([id number]) [address] [facility] [place] [address] WBC (Bld) [#/Vol] 7.6 10*3/uL Normal 4.0-11.0 [facility] Comment on above: Performed By: #### 6 873-4, 09941-0, 59282-5, CMP, 07553-1, HA1C, CBCA #### [facility] ([id number]) [address] [facility] [facility] [address] [place] [address] CBC auto differentialon Basophils (Bld) [#/Vol] 0.0 10*3/uL [facility] Basophils/100 WBC (Bld) 0.3 % [facility] Eosinophils (Bld) [#/Vol] 0.0 10*3/uL [facility] Eosinophils/100 WBC (Bld) 0.2 % [facility] Erythrocyte distribution width (RBC) [Ratio] 15.4 % High 11.5 - 15.0 % [facility] Hematocrit (Bld) [Volume fraction] 30.9 % Low 35 - 47 % [facility] Hemoglobin (Bld) [Mass/Vol] 10.4 g/dL Low 11.7 - 15.5 g/dL [facility] Interpretation and review of laboratory results Abnormal [facility] Lymphocytes (Bld) [#/Vol] 1.7 10*3/uL [facility] Lymphocytes/100 WBC (Bld) 22.6 % [facility] MCH (RBC) [Entitic mass] 25.8 pg Low 27 - 34 pg [facility] MCHC (RBC) [Mass/Vol] 33.7 g/dL 32 - 36 g/dL [facility] MCV (RBC) [Entitic vol] 77 fL Low 80 - 100 fL [facility] Monocytes (Bld) [#/Vol] 0.6 10*3/uL [facility] Monocytes/100 WBC (Bld) 7.9 % [facility] Neutrophils (Bld) [#/Vol] 5.2 10*3/uL [facility] Neutrophils/100 WBC (Bld) 69.0 % [facility] Platelet mean volume (Bld) [Entitic vol] 7.6 fL 7 - 12 fL [facility] Platelets (Bld) [#/Vol] 221 10*3/uL [facility] RBC (Bld) [#/Vol] 4.03 10*6/uL [facility] WBC corrected for nucl RBC Auto (Bld) [#/Vol] 7.6 [facility] COMPREHENSIVE METABOLIC PANE [employer] 07-04-2023 Albumin [Mass/Vol] 3.0 g/dL Low 3.2-5.3 [facility] Comment on above: Performed By: #### 6 873-4, 76884-0, 04251-6, CMP, 09005-9, HA1C, CBCA #### [facility] ([id number]) [address], [address] [place] [address] ALP [Catalytic activity/Vol] 68 U/L Normal 39-130 [facility] Comment on above: Performed By: #### 6 873-4, 96305-1, 75412-0, CMP, 57222-6, HA1C, CBCA #### [facility] ([id number]) [address], [address] [place] [address] ALT [Catalytic activity/Vol] 14 U/L Normal 0-31 [facility] Comment on above: Performed By: #### 6 873-4, 32653-9, 35348-3, CMP, 04188-6, HA1C, CBCA #### [facility] ([id number]) [address], [address] [place] [address] Anion gap [Moles/Vol] 5 mmol/L Normal 5-15 [facility] Comment on above: Performed By: #### 6 873-4, 49682-0, 36133-5, CMP, 18853-6, HA1C, CBCA #### [facility] ([id number]) [address], [address] [place] [address] AST [Catalytic activity/Vol] 17 U/L Normal 0-41 [facility] Comment on above: Performed By: #### 6 873-4, 99444-7, 02917-3, CMP, 53881-2, HA1C, CBCA #### [facility] ([id number]) [address], [address] [place] [address] Bilirubin [Mass/Vol] 0.3 mg/dL Normal 0.3-1.2 [facility] Comment on above: Performed By: #### 6 873-4, 20403-9, 69449-0, CMP, 27639-5, HA1C, CBCA #### [facility] ([id number]) [address], [address] [place] [address] Calcium [Mass/Vol] 7.4 mg/dL Low 8.5-10.5 [facility] Comment on above: Performed By: #### 6 873-4, 11555-4, 67552-0, CMP, 67443-6, HA1C, CBCA #### [facility] ([id number]) [address], [address] [place] [address] Chloride [Moles/Vol] 113 mmol/L High 98-109 [facility] Comment on above: Performed By: #### 6 873-4, 08075-1, 17819-3, CMP, 86708-0, HA1C, CBCA #### [facility] ([id number]) [address], [address] [place] [address] CO2 [Moles/Vol] 23 mmol/L Normal 22-32 [facility] Comment on above: Performed By: #### 6 873-4, 70572-4, 69863-9, CMP, 33531-5, HA1C, CBCA #### [facility] ([id number]) [address], [address] [place] [address] Creatinine [Mass/Vol] 0.36 mg/dL Low 0.40-1.00 [facility] Comment on above: Result Comment: METH OD TRACEABLE TO IDMS STANDARD Performed By: #### 6 873-4, 59101-1, 01416-9, CMP, 73238-9, HA1C, CBCA #### [facility] ([id number]) [address], [address] [place] [address] eGFR (CKD-EPI) NON-RACE DEPENDENT >90 Normal >59 [facility] Comment on above: Result Comment: Reported eGFR is based on the CKD-EPI 2020 equation that does not use a race coefficient. Performed By: #### 6 873-4, 76700-0, 35912-6, CMP, 12045-2, HA1C, CBCA #### [facility] ([id number]) [address], [address] [place] [address] Glucose [Mass/Vol] 89 mg/dL Normal 65-99 [facility] Comment on above: Performed By: #### 6 873-4, 75035-2, 87941-6, CMP, 92421-3, HA1C, CBCA #### [facility] ([id number]) [address], [address] [place] [address] Potassium [Moles/Vol] 3.4 mmol/L Low 3.5-5.0 [facility] Comment on above: Performed By: #### 6 873-4, 93062-6, 82626-0, CMP, 31530-9, HA1C, CBCA #### [facility] ([id number]) [address], [address] [place] [address] Protein [Mass/Vol] 5.0 g/dL Low 6.0-8.0 [facility] Comment on above: Performed By: #### 6 873-4, 10981-2, 73487-8, CMP, 89586-3, HA1C, CBCA #### [facility] ([id number]) [address], [address] [place] [address] Sodium [Moles/Vol] 141 mmol/L Normal 134-146 [facility] Comment on above: Performed By: #### 6 873-4, 55423-9, 12400-1, CMP, 34213-3, HA1C, CBCA #### [facility] ([id number]) [address], [address] [place] [address] Urea nitrogen [Mass/Vol] 2 mg/dL Low 5-23 [facility] Comment on above: Performed By: #### 6 873-4, 88165-5, 79158-7, CMP, 57898-1, HA1C, CBCA #### [facility] ([id number]) [address], [address] [place] [address] Calcium.ionized (Bld) [Mass/ Vol]on 07-04-2023 IONIZED CALCIUM 4.5 mg/dL Normal 4.5-5.3 [facility] Comment on above: Performed By: #### 6 873-4, 40227-2, 56103-1, CMP, 15341-7, HA1C, CBCA #### [facility] ([id number]) [address], [address] [place] [address] [facility] Comprehensive metabolic pane galileo 07-04-2023 Albumin [Mass/Vol] 3.0 g/dL Low 3.2 - 5.3 g/dL [facility] ALP [Catalytic activity/Vol] 68 U/L 39 - 130 U/L [facility] ALT No additional P-5'-P [Catalytic activity/Vol] 14 U/L 0 - 31 U/L [facility] Anion gap [Moles/Vol] 5 mmol/L 5 - 15 mmol/L [facility] AST [Catalytic activity/Vol] 17 U/L 0 - 41 U/L [facility] Bilirubin [Mass/Vol] 0.3 mg/dL 0.3 - 1 .2 mg/dL [facility] Calcium [Mass/Vol] 7.4 mg/dL Low 8.5 - 10. 5 mg/dL [facility] Chloride [Moles/Vol] 113 mmol/L High 98 - 10 9 mmol/L [facility] CO2 [Moles/Vol] 23 mmol/L 22 - 32 mmol/L [facility] Creatinine [Mass/Vol] 0.36 mg/dL Low 0.40 - 1.00 mg/dL [facility] Comment on above: METHOD TRACEABLE TO [facility] STANDARD eGFR (CKD-EPI)non-race dependent - PINF [facility] Comment on above: Reported eGFR is based on the CKD-EPI 2020 equation that does not use a race coefficient. Glucose [Mass/Vol] 89 mg/dL 65 - 99 mg/dL [facility] Potassium [Moles/Vol] 3.4 mmol/L Low 3.5 - 5.0 mmol/L [facility] Protein [Mass/Vol] 5.0 g/dL Low 6.0 - 8.0 g/dL [facility] Sodium [Moles/Vol] 141 mmol/L 134 - 146 mmol/L [facility] Urea nitrogen [Mass/Vol] 2 mg/dL Low 5 - 23 mg/d L [facility] ELECTROLYTESon 07-04-2023 Anion gap [Moles/Vol] 4 mmol/L Low 5-15 [facility] Comment on above: Performed By: #### 6 873-4, 69632-4, , CMP, 16340-8, HA1C, CBCA #### [facility] ([id number]) [address] [facility], [address] [place] [address] Chloride [Moles/Vol] 108 mmol/L Normal 98-109 [facility] Comment on above: Performed By: #### 6 873-4, 82408-4, 32143-5, CMP, 40495-6, HA1C, CBCA #### [facility] ([id number]) [address], [address] [place] [address] CO2 [Moles/Vol] 26 mmol/L Normal 22-32 [facility] Comment on above: Performed By: #### 6 873-4, 56886-9, 36105-7, CMP, 24213-0, HA1C, CBCA #### [facility] ([id number]) [address], [address] [place] [address] Potassium [Moles/Vol] 3.9 mmol/L Normal 3.5-5.0 [facility] Comment on above: Performed By: #### 6 873-4, 48249-1, 90311-8, CMP, 72023-3, HA1C, CBCA #### [facility] ([id number]) [address], [address] [place] [address] Sodium [Moles/Vol] 138 mmol/L Normal 134-146 [facility] Comment on above: Performed By: #### 6 873-4, 97711-4, 05351-5, CMP, 07453-2, HA1C, CBCA #### [facility] ([id number]) [address], [address] [place] [address] Anion gap [Moles/Vol] 7 mmol/L Normal 5-15 [facility] Comment on above: Performed By: #### 6 873-4, 77371-6, 78631-6, CMP, 90213-2, HA1C, CBCA #### [facility] ([id number]) [address], [address] [place] [address] Chloride [Moles/Vol] 109 mmol/L Normal 98-109 [facility] Comment on above: Performed By: #### 6 873-4, 39844-3, 69691-8, CMP, 12678-1, HA1C, CBCA #### [facility] ([id number]) [address], [address] [place] [address] CO2 [Moles/Vol] 21 mmol/L Low 22-32 [facility] Comment on above: Performed By: #### 6 873-4, 50135-0, 89045-2, CMP, 29930-4, HA1C, CBCA #### [facility] ([id number]) [address], [address] [place] [address] Potassium [Moles/Vol] 3.3 mmol/L Low 3.5-5.0 [facility] Comment on above: Performed By: #### 6 873-4, 82000-2, 50257-4, CMP, 07511-6, HA1C, CBCA #### [facility] ([id number]) [address], [address] [place] [address] Sodium [Moles/Vol] 137 mmol/L Normal 134-146 [facility] Comment on above: Performed By: #### 6 873-4, 93879-6, 74708-3, CMP, 88242-9, HA1C, CBCA #### [facility] ([id number]) [address], [address] [place] [address] ETHANOLon 07-04-2023 Ethanol [Mass/Vol] mg/dL Normal 0.00-0.08 [facility] Comment on above: Result Comment: This report is intended for use in clinical monitoring or management of patients. Performed By: #### 6 873-4, 01253-9, 64174-7, CMP, 61672-4, HA1C, CBCA #### [facility] ([id number]) [address], [address] [place] [address] Electrolyte panelon 07-04-19 Anion gap [Moles/Vol] 7 mmol/L 5 - 15 mmol/L [facility] Chloride [Moles/Vol] 109 mmol/L 98 - 10 9 mmol/L [facility] CO2 [Moles/Vol] 21 mmol/L Low 22 - 32 mmol/L [facility] Interpretation and review of laboratory results Abnormal [facility] Potassium [Moles/Vol] 3.3 mmol/L Low 3.5 - 5.0 mmol/L [facility] Sodium [Moles/Vol] 137 mmol/L 134 - 146 mmol/L [facility] Glucose Glucometer (BldC) [M ass/Vol]on 07-04-2023 Glucose [Mass/Vol] 203 mg/dL High 65-99 [facility] Glucose [Mass/Vol] 173 mg/dL High 65-99 [facility] Glucose [Mass/Vol] 140 mg/dL High 65 - 99 mg/dL [facility] Glucose [Mass/Vol] 173 mg/dL High 65 - 99 mg/dL [facility] Interpretation and review of laboratory results Abnormal [facility] Glucose [Mass/Vol] 140 mg/dL High 65-99 [facility] Glucose [Mass/Vol] 156 mg/dL High 65-99 [facility] Glucose [Mass/Vol] 156 mg/dL High 65 - 99 mg/dL [facility] Interpretation and review of laboratory results Abnormal [facility] Glucose [Mass/Vol] 139 mg/dL High 65 - 99 mg/dL [facility] Interpretation and review of laboratory results Abnormal [facility] Glucose [Mass/Vol] 139 mg/dL High 65-99 [facility] Glucose [Mass/Vol] 134 mg/dL High 65-99 [facility] Glucose [Mass/Vol] 147 mg/dL High 65-99 [facility] Glucose [Mass/Vol] 134 mg/dL High 65 - 99 mg/dL [facility] Interpretation and review of laboratory results Abnormal [facility] Glucose [Mass/Vol] 86 mg/dL Normal 65-99 [facility] Glucose [Mass/Vol] 147 mg/dL High 65 - 99 mg/dL [facility] Interpretation and review of laboratory results Abnormal [facility] Glucose [Mass/Vol] 106 mg/dL High 65-99 [facility] Glucose [Mass/Vol] 86 mg/dL 65 - 99 mg/dL [facility] Glucose [Mass/Vol] 163 mg/dL High 65-99 [facility] Glucose [Mass/Vol] 235 mg/dL High 65-99 [facility] Glucose [Mass/Vol] 106 mg/dL High 65 - 99 mg/dL [facility] Interpretation and review of laboratory results Abnormal [facility] Glucose [Mass/Vol] 163 mg/dL High 65 - 99 mg/dL [facility] Interpretation and review of laboratory results Abnormal [facility] Glucose [Mass/Vol] 238 mg/dL High 65-99 [facility] Glucose [Mass/Vol] 235 mg/dL High 65 - 99 mg/dL [facility] Interpretation and review of laboratory results Abnormal [facility] Glucose [Mass/Vol] 265 mg/dL High 65-99 [facility] Ionized calciumon 07-04-2023 Calcium.ionized (Bld) [Mass/Vol] 4.5 mg/dL 4.5 - 5.3 mg/dL [facility] Ionized magnesiumon 07-04-19 Magnesium Ionized ISE (Bld) [Moles/Vol] 0.72 mmol/L 0.45 - 0.74 mmol/L [facility] Comment on above: NEW REFERENCE RANGE LIVER PANELon 07-04-2023 Albumin [Mass/Vol] 3.6 g/dL Normal 3.2-5.3 [facility] Comment on above: Performed By: #### 6 873-4, 32325-9, 80304-4, CMP, 11854-2, HA1C, CBCA #### [facility] ([id number]) [address] [facility], [address] [place] [address] ALP [Catalytic activity/Vol] 82 U/L Normal 39-130 [facility] Comment on above: Performed By: #### 6 873-4, 10585-2, 94785-7, CMP, 34407-4, HA1C, CBCA #### [facility] ([id number]) [address], [address] [place] [address] ALT [Catalytic activity/Vol] 18 U/L Normal 0-31 [facility] Comment on above: Performed By: #### 6 873-4, 65849-5, 50577-2, CMP, 87154-4, HA1C, CBCA #### [facility] ([id number]) [address], [address] [place] [address] AST [Catalytic activity/Vol] 18 U/L Normal 0-41 [facility] Comment on above: Performed By: #### 6 873-4, 17417-9, 77451-4, CMP, 30078-5, HA1C, CBCA #### [facility] ([id number]) [address], [address] [place] [address] Bilirubin [Mass/Vol] 0.5 mg/dL Normal 0.3-1.2 [facility] Comment on above: Performed By: #### 6 873-4, 67677-0, 43824-7, CMP, 90702-9, HA1C, CBCA #### [facility] ([id number]) [address], [address] [place] [address] Bilirubin.direct [Mass/Vol] 0.0 mg/dL Normal 0.0-0.4 [facility] Comment on above: Performed By: #### 6 873-4, 22883-8, 74434-6, CMP, 18334-3, HA1C, CBCA #### [facility] ([id number]) [address], [address] [place] [address] Protein [Mass/Vol] 6.4 g/dL Normal 6.0-8.0 [facility] Comment on above: Performed By: #### 6 873-4, 83506-4, 32620-4, CMP, 90045-9, HA1C, CBCA #### [facility] ([id number]) [address], [address] [place] [address] Laboratory - Chemistry and C hemistry - challengeon 07-04-2023 Phosphate [Mass/Vol] 2.0 mg/dL Low 2.4-4.9 [facility] Comment on above: Performed By: #### 6 873-4, 18407-2, 70659-6, CMP, 54094-0, HA1C, CBCA #### [facility] ([id number]) [address] [facility], [address] [place] [address] MAGNESIUMon 07-04-2023 Magnesium [Mass/Vol] 1.5 mg/dL Low 1.8-2.6 [facility] Comment on above: Performed By: #### 6 873-4, 39420-7, 68524-2, CMP, 64723-1, HA1C, CBCA #### [facility] ([id number]) [address] [facility], [address] [place] [address] Magnesiumon 07-04-2023 Magnesium [Mass/Vol] 1.5 mg/dL Low 1.8 - 2 .6 mg/dL [facility] Magnesium Ionized ISE (Bld) [Moles/Vol]on 07-04-2023 Magnesium [Moles/Vol] 0.72 mmol/L Normal 0.45-0.74 [facility] Comment on above: Result Comment: NEW REFERENCE RANGE Performed By: #### 6 873-4, 70595-6, 18652-6, CMP, 63661-7, HA1C, CBCA #### [facility] ([id number]) [address] [facility], [address] [place] [address] [facility] No Panel Informationon 07-04 Interpretation and review of laboratory results Abnormal [facility] Interpretation and review of laboratory results Abnormal [facility] PHOSPHORUSon 07-04-2023 Phosphate [Mass/Vol] 1.5 mg/dL Low 2.4-4.9 [facility] Comment on above: Performed By: #### 6 873-4, 19122-1, 93383-8, CMP, 82011-3, HA1C, CBCA #### [facility] ([id number]) [address], [address] [place] [address] Phosphate [Mass/Vol] mg/dL Critically low 2.4-4.9 [facility] Comment on above: Performed By: #### 6 873-4, 15068-6, 96433-1, CMP, 88064-6, HA1C, CBCA #### [facility] ([id number]) [address] [facility], [address] [place] [address] Phosphate [Mass/Vol] 1.1 mg/dL Low 2.4-4.9 [facility] Comment on above: Performed By: #### 6 873-4, 59694-9, 71451-5, CMP, 32174-4, HA1C, CBCA #### [facility] ([id number]) [address] [facility], [address] [place] [address] Phosphate [Mass/Vol]on 07-04 Interpretation and review of laboratory results Abnormal [facility] Interpretation and review of laboratory results Abnormal [facility] Phosphoruson 07-04-2023 Phosphate [Mass/Vol] mg/dL Critically low 2.4 - 4.9 mg/dL [facility] Phosphate [Mass/Vol] 1.1 mg/dL Low 2.4 - 4 .9 mg/dL [facility] VENOUS BLOOD GASon CAMI'S TEST Normal [facility] Comment on above: Performed By: #### 6 873-4, 44565-0, 61199-7, CMP, 73097-2, HA1C, CBCA #### [facility] ([id number]) [address], [address] [place] [address] Base excess Calc (Bld) [Moles/Vol] 2.0 mmol/L Normal 0.0-2.0 [facility] Comment on above: Performed By: #### 6 873-4, 06206-9, 65917-4, CMP, 84382-5, HA1C, CBCA #### [facility] ([id number]) [address], [address] [place] [address] Body temperature 98.6 [degF] Normal 37.0 [facility] Comment on above: Performed By: #### 6 873-4, 86409-9, 38806-0, CMP, 99348-4, HA1C, CBCA #### [facility] ([id number]) [address], [address] [place] [address] HCO3 (Bld) [Moles/Vol] 26.7 mmol/L High 20.0-24.0 [facility] Comment on above: Performed By: #### 6 873-4, 22567-5, 65410-9, CMP, 59193-6, HA1C, CBCA #### [facility] ([id number]) [address], [address] [place] [address] Oxygen saturation in Blood 43.0 % Low >80.0 [facility] Comment on above: Performed By: #### 6 873-4, 29833-1, 35697-5, CMP, 84569-9, HA1C, CBCA #### [facility] ([id number]) [address], [address] [place] [address] OXYGEN SOURCE RoomAir Normal [facility] Comment on above: Performed By: #### 6 873-4, 58731-6, 41109-1, CMP, 73949-4, HA1C, CBCA #### [facility] ([id number]) [address], [address] [place] [address] PCO2, VENOUS 43.5 MMHG Normal 35-50 [facility] Comment on above: Performed By: #### 6 873-4, 45864-0, 29814-5, CMP, 05015-3, HA1C, CBCA #### [facility] ([id number]) [address], [address] [place] [address] PH, VENOUS 7.397 Normal 7.320-7.420 [facility] Comment on above: Performed By: #### 6 873-4, 40642-2, 93969-5, CMP, 14162-4, HA1C, CBCA #### [facility] ([id number]) [address], [address] [place] [address] PO2, VENOUS 24 MMHG Low 30-50 [facility] Comment on above: Performed By: #### 6 873-4, 81718-8, 37023-0, CMP, 42218-9, HA1C, CBCA #### [facility] ([id number]) [address], [address] [place] [address] SAMPLE SITE N/A Normal [facility] Comment on above: Performed By: #### 6 873-4, 62354-5, 73795-1, CMP, 54902-3, HA1C, CBCA #### [facility] ([id number]) [address], [address] [place] [address] SAMPLE TYPE VENOUS Normal [facility] Comment on above: Performed By: #### 6 873-4, 18184-2, 12820-7, CMP, 89783-3, HA1C, CBCA #### [facility] ([id number]) [address], [address] [place] [address] Beta hydroxybutyrate [Moles/ Vol]on 07-03-2023 BetaHydroxybutyrate 1.23 mmol/L High 0.02-0.27 [facility] Comment on above: Performed By: #### 6 873-4, 84733-1, 01195-3, CMP, 30164-7, HA1C, CBCA #### [facility] ([id number]) [address] [facility], [address] [place] [address] BetaHydroxybutyrate 2.65 mmol/L High 0.02-0.27 [facility] Comment on above: Performed By: #### 6 873-4, 21651-3, , CMP, 88636-7, HA1C, CBCA #### [facility] ([id number]) [address] [place] [address], [address] [place] [address] Interpretation and review of laboratory results Abnormal [facility] BetaHydroxybutyrate 2.84 mmol/L High 0.02-0.27 [facility] Comment on above: Performed By: #### 6 873-4, 84683-7, , CMP, 14886-4, HA1C, CBCA #### [facility] ([id number]) [address] [facility], [address] [place] [address] BetaHydroxybutyrateon 2023 Beta hydroxybutyrate [Moles/Vol] 1.23 mmol/L High 0.02 - 0.27 mmol/L [facility] Beta hydroxybutyrate [Moles/Vol] 2.65 mmol/L High 0.02 - 0.27 mmol/L [facility] Beta hydroxybutyrate [Moles/Vol] 2.84 mmol/L High 0.02 - 0.27 mmol/L [facility] CBC AND AUTO DIFFon 07-03-19 ABSOLUTE BASOPHIL 0.1 X10E9/L Normal 0.0-0.2 [facility] Comment on above: Performed By: #### 6 873-4, 95069-0, 36185-9, CMP, 92208-5, HA1C, CBCA #### [facility] ([id number]) [address] [facility], [address] [place] [address] ABSOLUTE NEUTROPHIL 11.0 X10E9/L High 1.5-6.6 [facility] Comment on above: Performed By: #### 6 873-4, 13056-0, 24013-4, CMP, 96959-0, HA1C, CBCA #### [facility] ([id number]) [address], [address] [place] [address] Basophils/100 WBC (Bld) 0.6 % Normal [facility] Comment on above: Performed By: #### 6 873-4, 70717-7, 85380-8, CMP, 02572-4, HA1C, CBCA #### [facility] ([id number]) [address], [address] [place] [address] Eosinophils (Bld) [#/Vol] 0.0 10*3/uL Normal 0.0-0.4 [facility] Comment on above: Performed By: #### 6 873-4, 28595-2, 33553-9, CMP, 52820-9, HA1C, CBCA #### [facility] ([id number]) [address], [address] [place] [address] Eosinophils/100 WBC (Bld) 0.0 % Normal [facility] Comment on above: Performed By: #### 6 873-4, 67190-9, 48499-8, CMP, 86223-7, HA1C, CBCA #### [facility] ([id number]) [address], [facility] [address] [place] [address] Erythrocyte distribution width (RBC) [Ratio] 14.8 % Normal 11.5-15.0 [facility] Comment on above: Performed By: #### 6 873-4, 38282-3, 98769-3, CMP, 06215-4, HA1C, CBCA #### [facility] ([id number]) [address], [address] [place] [address] Hematocrit (Bld) [Volume fraction] 33.7 % Low 35-47 [facility] Comment on above: Performed By: #### 6 873-4, 20813-0, 28877-3, CMP, 44334-5, HA1C, CBCA #### [facility] ([id number]) [address], [address] [place] [address] Hemoglobin (Bld) [Mass/Vol] 10.8 g/dL Low 11.7-15.5 [facility] Comment on above: Performed By: #### 6 873-4, 52922-2, 71566-5, CMP, 32832-5, HA1C, CBCA #### [facility] ([id number]) [address], [address] [place] [address] Lymphocytes (Bld) [#/Vol] 0.5 10*3/uL Low 1.0-3.5 [facility] Comment on above: Performed By: #### 6 873-4, 30457-7, 57745-5, CMP, 70189-5, HA1C, CBCA #### [facility] ([id number]) [address], [address] [place] [address] Lymphocytes/100 WBC (Bld) 4.1 % Normal [facility] Comment on above: Performed By: #### 6 873-4, 07986-7, 98896-5, CMP, 45527-5, HA1C, CBCA #### [facility] ([id number]) [address], [address] [place] [address] MCH (RBC) [Entitic mass] 25.4 pg Low 27-34 [facility] Comment on above: Performed By: #### 6 873-4, 94570-5, 94677-5, CMP, 28474-0, HA1C, CBCA #### [facility] ([id number]) [address], [address] [place] [address] MCHC (RBC) [Mass/Vol] 32.2 g/dL Normal 32-36 [facility] Comment on above: Performed By: #### 6 873-4, 41728-1, 25368-1, CMP, 77516-5, HA1C, CBCA #### [facility] ([id number]) [address], [address] [place] [address] MCV (RBC) [Entitic vol] 79 fL Low 80-100 [facility] Comment on above: Performed By: #### 6 873-4, 28366-4, 61544-4, CMP, 60604-0, HA1C, CBCA #### [facility] ([id number]) [address], [address] [place] [address] Monocytes (Bld) [#/Vol] 0.9 10*3/uL Normal 0-0.9 [facility] Comment on above: Performed By: #### 6 873-4, 38793-8, 66576-4, CMP, 35885-4, HA1C, CBCA #### [facility] ([id number]) [address], [address] [place] [address] Monocytes/100 WBC (Bld) 7.0 % Normal [facility] Comment on above: Performed By: #### 6 873-4, 09120-6, 05962-5, CMP, 56250-4, HA1C, CBCA #### [facility] ([id number]) [address], [facility] [address] [place] [address] Neutrophils/100 WBC (Bld) 88.3 % Normal [facility] Comment on above: Performed By: #### 6 873-4, 78616-0, 35007-2, CMP, 23187-1, HA1C, CBCA #### [facility] ([id number]) [address], [facility] [address] [place] [address] Platelet mean volume (Bld) [Entitic vol] 7.7 fL Normal 7-12 [facility] Comment on above: Performed By: #### 6 873-4, 80875-8, 42473-4, CMP, 97948-2, HA1C, CBCA #### [facility] ([id number]) [address], [address] [place] [address] Platelets (Bld) [#/Vol] 231 10*3/uL Normal 150-450 [facility] Comment on above: Performed By: #### 6 873-4, 31066-6, 93075-2, CMP, 97331-9, HA1C, CBCA #### [facility] ([id number]) [address], [address] [place] [address] RBC COUNT 4.26 X10E12/L Normal 3.80-5.20 [facility] Comment on above: Performed By: #### 6 873-4, 15838-7, 74321-1, CMP, 21597-9, HA1C, CBCA #### [facility] ([id number]) [address], [address] [place] [place] [address] WBC (Bld) [#/Vol] 12.4 10*3/uL High 4.0-11.0 [facility] Comment on above: Performed By: #### 6 873-4, 71286-2, 83515-3, CMP, 87453-4, HA1C, CBCA #### [facility] ([id number]) [address], [address] [place] [address] CBC auto differentialon Basophils (Bld) [#/Vol] 0.1 10*3/uL [facility] Basophils/100 WBC (Bld) 0.6 % [facility] Eosinophils (Bld) [#/Vol] 0.0 10*3/uL [facility] Eosinophils/100 WBC (Bld) 0.0 % [facility] Erythrocyte distribution width (RBC) [Ratio] 14.8 % 11.5 - 15.0 % [facility] Hematocrit (Bld) [Volume fraction] 33.7 % Low 35 - 47 % [facility] Hemoglobin (Bld) [Mass/Vol] 10.8 g/dL Low 11.7 - 15.5 g/dL [facility] Interpretation and review of laboratory results Abnormal [facility] Lymphocytes (Bld) [#/Vol] 0.5 10*3/uL Low [facility] Lymphocytes/100 WBC (Bld) 4.1 % [facility] MCH (RBC) [Entitic mass] 25.4 pg Low 27 - 34 pg [facility] MCHC (RBC) [Mass/Vol] 32.2 g/dL 32 - 36 g/dL [facility] MCV (RBC) [Entitic vol] 79 fL Low 80 - 100 fL [facility] Monocytes (Bld) [#/Vol] 0.9 10*3/uL [facility] Monocytes/100 WBC (Bld) 7.0 % [facility] Neutrophils (Bld) [#/Vol] 11.0 10*3/uL High [facility] Neutrophils/100 WBC (Bld) 88.3 % [facility] Platelet mean volume (Bld) [Entitic vol] 7.7 fL 7 - 12 fL [facility] Platelets (Bld) [#/Vol] 231 10*3/uL [facility] RBC (Bld) [#/Vol] 4.26 10*6/uL [facility] WBC corrected for nucl RBC Auto (Bld) [#/Vol] 12.4 High [facility] COMPREHENSIVE METABOLIC PANE [employer] 07-03-2023 Albumin [Mass/Vol] 3.4 g/dL Normal 3.2-5.3 [facility] Comment on above: Performed By: #### 6 873-4, 03649-0, 56000-4, CMP, 03017-7, HA1C, CBCA #### [facility] ([id number]) [address], [address] [place] [address] ALP [Catalytic activity/Vol] 80 U/L Normal 39-130 [facility] Comment on above: Performed By: #### 6 873-4, 97177-7, 50602-1, CMP, 77145-3, HA1C, CBCA #### [facility] ([id number]) [address], [address] [place] [address] ALT [Catalytic activity/Vol] 14 U/L Normal 0-31 [facility] Comment on above: Performed By: #### 6 873-4, 67418-1, 81610-5, CMP, 18353-3, HA1C, CBCA #### [facility] ([id number]) [address], [address] [place] [address] Anion gap [Moles/Vol] 10 mmol/L Normal 5-15 [facility] Comment on above: Performed By: #### 6 873-4, 10720-2, 29827-5, CMP, 90255-0, HA1C, CBCA #### [facility] ([id number]) [address], [address] [place] [address] AST [Catalytic activity/Vol] 23 U/L Normal 0-41 [facility] Comment on above: Performed By: #### 6 873-4, 17123-2, 48246-4, CMP, 02755-5, HA1C, CBCA #### [facility] ([id number]) [address], [address] [place] [address] Bilirubin [Mass/Vol] 0.3 mg/dL Normal 0.3-1.2 [facility] Comment on above: Performed By: #### 6 873-4, 04839-9, 09559-8, CMP, 06357-7, HA1C, CBCA #### [facility] ([id number]) [address], [address] [place] [address] Calcium [Mass/Vol] 6.6 mg/dL Critically low 8.5-10.5 [facility] Comment on above: Performed By: #### 6 873-4, 94378-7, 58858-3, CMP, 53282-5, HA1C, CBCA #### [facility] ([id number]) [address], [address] [place] [address] Chloride [Moles/Vol] 117 mmol/L High 98-109 [facility] Comment on above: Performed By: #### 6 873-4, 13793-0, 56654-0, CMP, 13223-6, HA1C, CBCA #### [facility] ([id number]) [address], [address] [place] [address] CO2 [Moles/Vol] 12 mmol/L Low 22-32 [facility] Comment on above: Performed By: #### 6 873-4, 15594-9, 89451-9, CMP, 59058-8, HA1C, CBCA #### [facility] ([id number]) [address], [address] [place] [address] Creatinine [Mass/Vol] 0.53 mg/dL Normal 0.40-1.00 [facility] Comment on above: Result Comment: METH OD TRACEABLE TO IDMS STANDARD Performed By: #### 6 873-4, 03006-0, 92429-6, CMP, 56256-3, HA1C, CBCA #### [facility] ([id number]) [address], [address] [place] [address] eGFR (CKD-EPI) NON-RACE DEPENDENT >90 Normal >59 [facility] Comment on above: Result Comment: Reported eGFR is based on the CKD-EPI 2020 equation that does not use a race coefficient. Performed By: #### 6 873-4, 99800-9, 69066-7, CMP, 62186-6, HA1C, CBCA #### [facility] ([id number]) [address], [address] [place] [address] Glucose [Mass/Vol] 214 mg/dL High 65-99 [facility] Comment on above: Performed By: #### 6 873-4, 29061-1, 76231-0, CMP, 87886-0, HA1C, CBCA #### [facility] ([id number]) [address], [address] [place] [address] Potassium [Moles/Vol] 3.7 mmol/L Normal 3.5-5.0 [facility] Comment on above: Performed By: #### 6 873-4, 83759-0, 50545-7, CMP, 58132-2, HA1C, CBCA #### [facility] ([id number]) [address], [address] [place] [address] Protein [Mass/Vol] 5.7 g/dL Low 6.0-8.0 [facility] Comment on above: Performed By: #### 6 873-4, 97232-5, 33566-6, CMP, 68157-6, HA1C, CBCA #### [facility] ([id number]) [address], [address] [place] [address] Sodium [Moles/Vol] 139 mmol/L Normal 134-146 [facility] Comment on above: Performed By: #### 6 873-4, 69533-8, 83712-3, CMP, 87545-3, HA1C, CBCA #### [facility] ([id number]) [address], [address] [place] [address] Urea nitrogen [Mass/Vol] 8 mg/dL Normal 5-23 [facility] Comment on above: Performed By: #### 6 873-4, 34788-6, 59827-5, CMP, 84925-3, HA1C, CBCA #### [facility] ([id number]) [address], [address] [place] [address] Calcium.ionized (Bld) [Mass/ Vol]on 07-03-2023 IONIZED CALCIUM 4.5 mg/dL Normal 4.5-5.3 [facility] Comment on above: Performed By: #### 6 873-4, 98497-3, 18895-5, CMP, 27978-8, HA1C, CBCA #### [facility] ([id number]) [address] [address], [address] [place] [address] [facility] IONIZED CALCIUM 4.3 mg/dL Low 4.5-5.3 [facility] Comment on above: Performed By: #### 6 873-4, 87733-3, 00725-2, CMP, 77014-9, HA1C, CBCA #### [facility] ([id number]) [address], [address] [place] [address] Interpretation and review of laboratory results Abnormal [employer] Cardiac echo study Procedure Ordered By: Dilan Navarrete on 07-03-2023 Aortic root 2.70 cm [employer] Work Phone: [phone] AV mean gradient 5.00 mmHg [employer] Work Phone: [phone] AV peak gradient 9.99 mmHg [employer] Work Phone: [phone] AV peak deep 158.00 cm/s [employer] Work Phone: [phone] AV Velocity Ratio 0.60 [employer] Work Phone: [phone] AV VTI 27.60 cm [employer] Work Phone: [phone] E wave deceleration time 194.00 msec [employer] Work Phone: [phone] E/A ratio 1.15 [employer] Work Phone: [phone] Echo EF Estimated 61 % [employer] Work Phone: [phone] EF 61 % [employer] Work Phone: [phone] FS 35 % 28 - 44 % [employer] Work Phone: [phone] Interventricular Septum Diastolic Thickness by 2D 11 cm [employer] Work Phone: [phone] IVS 1.10 cm 0.6 - 1.1 cm [employer] Work Phone: [phone] LA size 3.20 cm [employer] Work Phone: [phone] LA volume 40.30 cm3 [employer] Work Phone: [phone] LA Volume Index 23.4 mL/m2 [facility] Work Phone: [phone] Left Ventricle Mass 181.536458020582458 g [employer] Work Phone: [phone] LV Diastolic Volume 115.[address] [facility] Work Phone: [phone] LV ESV A2C 38.20 mL [facility] Work Phone: [phone] ESV A4C 39.60 mL [employer] Work Phone: [phone] LV RWT 2D 47.83 [facility] Work Phone: [phone] LV Systolic Volume 44.40 mL [facility] Work Phone: [phone] LVIDd 4.60 cm 4.09 - 5.68 cm [employer] Work Phone: [phone] LVIDs 3.00 cm 2.42 - 3.67 cm [employer] Work Phone: [phone] LVOT peak deep 0.92 m/s [employer] Work Phone: [phone] LVOT peak VTI 16.50 cm [facility] Work Phone: [phone] MV Peak A Deep 76.60 cm/s [facility] Work Phone: [phone] MV Peak E Deep 87.80 cm/s [facility] Work Phone: [phone] MV pressure 1/2 time 57.00 ms [facility] Work Phone: [phone] MV TDI E' (medial) 7.29 cm/s [facility] Work Phone: [phone] MV valve area p 1/2 method 3.86 cm2 [facility] Work Phone: [phone] PW 1.10 cm 0.6 - 1.1 cm [employer] Work Phone: RV diastolic dimension (basal) 36.0 mm [employer] Work Phone: [phone] RV diastolic dimension (mid-ventricle) 31.0 cm [employer] Work Phone: [phone] RV diastolic length 62.0 cm [employer] Work Phone: [phone] RV Peak Systolic Pressure 24 mmHg [employer] Work Phone: [phone] TAPSE 2.46 cm [facility] Work Phone: [phone] TDI 10.30 cm/s [facility] Work Phone: [phone] TR peak gradient 21.72 mmHg [employer] Work Phone: [phone] TR Peak Deep 2.3 m/s [employer] Work Phone: [phone] ZLVIDD -0.46 [employer] Work Phone: [phone] ZLVIDS 0.05 [employer] Work Phone: [phone] [employer] Work Phone: [phone] Cardiac echo study Procedure on 07-03-2023 Left [...] is normal. [facility] Radiology Study observation (narrative) [facility] Comprehensive metabolic pane galileo 07-03-2023 Albumin [Mass/Vol] 3.4 g/dL 3.2 - 5.3 g/dL [facility] ALP [Catalytic activity/Vol] 80 U/L 39 - 130 U/L [facility] ALT No additional P-5'-P [Catalytic activity/Vol] 14 U/L 0 - 31 U/L [facility] Anion gap [Moles/Vol] 10 mmol/L 5 - 15 mmol/L [facility] AST [Catalytic activity/Vol] 23 U/L 0 - 41 U/L [facility] Bilirubin [Mass/Vol] 0.3 mg/dL 0.3 - 1 .2 mg/dL [facility] Calcium [Mass/Vol] 6.6 mg/dL Critically low 8.5 - 1 0.5 mg/dL [facility] Chloride [Moles/Vol] 117 mmol/L High 98 - 10 9 mmol/L [facility] CO2 [Moles/Vol] 12 mmol/L Low 22 - 32 mmol/L [facility] Creatinine [Mass/Vol] 0.53 mg/dL 0.40 - 1.00 mg/dL [facility] Comment on above: METHOD TRACEABLE TO IDNM STANDARD eGFR (CKD-EPI)non-race dependent - PINF [facility] Comment on above: Reported eGFR is based on the CKD-EPI 2020 equation that does not use a race coefficient. Glucose [Mass/Vol] 214 mg/dL High 65 - 99 mg/dL [facility] Potassium [Moles/Vol] 3.7 mmol/L 3.5 - 5.0 mmol/L [facility] Protein [Mass/Vol] 5.7 g/dL Low 6.0 - 8.0 g/dL [facility] Sodium [Moles/Vol] 139 mmol/L 134 - 146 mmol/L [facility] Urea nitrogen [Mass/Vol] 8 mg/dL 5 - 23 mg/d L [facility] ELECTROLYTESon 07-03-2023 Anion gap [Moles/Vol] 7 mmol/L Normal 5-15 [facility] Comment on above: Performed By: #### 6 873-4, 34275-2, 73150-7, CMP, 16895-1, HA1C, CBCA #### [facility] ([id number]) [address], [address] [place] [address] Chloride [Moles/Vol] 108 mmol/L Normal 98-109 [facility] Comment on above: Performed By: #### 6 873-4, 03637-4, 05114-9, CMP, 57849-4, HA1C, CBCA #### [facility] ([id number]) [address], [address] [place] [address] CO2 [Moles/Vol] 20 mmol/L Low 22-32 [facility] Comment on above: Performed By: #### 6 873-4, 00686-9, 05407-6, CMP, 62438-2, HA1C, CBCA #### [facility] ([id number]) [address], [address] [place] [address] Potassium [Moles/Vol] 3.4 mmol/L Low 3.5-5.0 [facility] Comment on above: Performed By: #### 6 873-4, 17091-0, 25681-0, CMP, 05821-1, HA1C, CBCA #### [facility] ([id number]) [address], [address] [place] [address] Sodium [Moles/Vol] 135 mmol/L Normal 134-146 [facility] Comment on above: Performed By: #### 6 873-4, 73918-5, 85851-7, CMP, 33326-7, HA1C, CBCA #### [facility] ([id number]) [address], [address] [place] [address] Anion gap [Moles/Vol] 12 mmol/L Normal 5-15 [facility] Comment on above: Performed By: #### 6 873-4, 31904-4, 37943-7, CMP, 03349-6, HA1C, CBCA #### [facility] ([id number]) [address], [address] [place] [address] Chloride [Moles/Vol] 108 mmol/L Normal 98-109 [facility] Comment on above: Performed By: #### 6 873-4, 99851-3, 73263-6, CMP, 16567-1, HA1C, CBCA #### [facility] ([id number]) [address], [address] [place] [address] CO2 [Moles/Vol] 15 mmol/L Low 22-32 [facility] Comment on above: Performed By: #### 6 873-4, 02330-6, 63694-8, CMP, 85408-8, HA1C, CBCA #### [facility] ([id number]) [address], [address] [place] [address] Potassium [Moles/Vol] 3.7 mmol/L Normal 3.5-5.0 [facility] Comment on above: Performed By: #### 6 873-4, 35796-4, 25194-9, CMP, 41007-3, HA1C, CBCA #### [facility] ([id number]) [address], [address] [place] [address] Sodium [Moles/Vol] 135 mmol/L Normal 134-146 [facility] Comment on above: Performed By: #### 6 873-4, 62582-9, 24808-4, CMP, 31122-3, HA1C, CBCA #### [facility] ([id number]) [address], [address] [place] [address] Anion gap [Moles/Vol] 8 mmol/L Normal 5-15 [facility] Comment on above: Performed By: #### 6 873-4, 84269-0, 79736-1, CMP, 60481-3, HA1C, CBCA #### [facility] ([id number]) [address], [address] [place] [address] Chloride [Moles/Vol] 108 mmol/L Normal 98-109 [facility] Comment on above: Performed By: #### 6 873-4, 23627-4, 14842-0, CMP, 27441-4, HA1C, CBCA #### [facility] ([id number]) [address], [address] [place] [address] CO2 [Moles/Vol] 18 mmol/L Low 22-32 [facility] Comment on above: Performed By: #### 6 873-4, 27671-8, 36211-6, CMP, 80872-1, HA1C, CBCA #### [facility] ([id number]) [address], [address] [place] [address] Potassium [Moles/Vol] 3.7 mmol/L Normal 3.5-5.0 [facility] Comment on above: Performed By: #### 6 873-4, 65134-3, 50096-8, CMP, 85854-1, HA1C, CBCA #### [facility] ([id number]) [address], [address] [place] [address] Sodium [Moles/Vol] 134 mmol/L Normal 134-146 [facility] Comment on above: Performed By: #### 6 873-4, 63015-0, 81226-1, CMP, 01304-6, HA1C, CBCA #### [facility] ([id number]) [address], [address] [place] [address] Anion gap [Moles/Vol] 8 mmol/L Normal 5-15 [facility] Comment on above: Performed By: #### 6 873-4, 00184-1, 10310-0, CMP, 79750-3, HA1C, CBCA #### [facility] ([id number]) [address], [address] [place] [address] Chloride [Moles/Vol] 116 mmol/L High 98-109 [facility] Comment on above: Performed By: #### 6 873-4, 42496-0, 90762-9, CMP, 37296-7, HA1C, CBCA #### [facility] ([id number]) [address], [address] [place] [address] CO2 [Moles/Vol] 15 mmol/L Low 22-32 [facility] Comment on above: Performed By: #### 6 873-4, 73007-0, 37731-1, CMP, 22662-4, HA1C, CBCA #### [facility] ([id number]) [address], [address] [place] [address] Potassium [Moles/Vol] 3.0 mmol/L Low 3.5-5.0 [facility] Comment on above: Performed By: #### 6 873-4, 80891-6, 31847-4, CMP, 41639-6, HA1C, CBCA #### [facility] ([id number]) [address], [address] [place] [address] Sodium [Moles/Vol] 139 mmol/L Normal 134-146 [facility] Comment on above: Performed By: #### 6 873-4, 37295-5, 99690-4, CMP, 11601-4, HA1C, CBCA #### [facility] ([id number]) [address], [address] [place] [address] Anion gap [Moles/Vol] 8 mmol/L Normal 5-15 [facility] Comment on above: Performed By: #### 6 873-4, 15448-0, 12111-2, CMP, 61863-2, HA1C, CBCA #### [facility] ([id number]) [address], [address] [place] [address] Chloride [Moles/Vol] 121 mmol/L High 98-109 [facility] Comment on above: Performed By: #### 6 873-4, 77342-2, 63828-6, CMP, 36393-6, HA1C, CBCA #### [facility] ([id number]) [address], [address] [place] [address] CO2 [Moles/Vol] 13 mmol/L Low 22-32 [facility] Comment on above: Performed By: #### 6 873-4, 01412-6, 20484-6, CMP, 85628-5, HA1C, CBCA #### [facility] ([id number]) [address], [address] [place] [address] Potassium [Moles/Vol] 3.2 mmol/L Low 3.5-5.0 [facility] Comment on above: Performed By: #### 6 873-4, 82231-4, 64817-2, CMP, 80802-4, HA1C, CBCA #### [facility] ([id number]) [address], [address] [place] [address] Sodium [Moles/Vol] 142 mmol/L Normal 134-146 [facility] Comment on above: Performed By: #### 6 873-4, 02983-0, 89195-5, CMP, 84491-4, HA1C, CBCA #### [facility] ([id number]) [address] [place] [address] Electrolyte panelon 07-03-19 Anion gap [Moles/Vol] 7 mmol/L 5 - 15 mmol/L [facility] Chloride [Moles/Vol] 108 mmol/L 98 - 10 9 mmol/L [facility] CO2 [Moles/Vol] 20 mmol/L Low 22 - 32 mmol/L [facility] Potassium [Moles/Vol] 3.4 mmol/L Low 3.5 - 5.0 mmol/L [facility] Sodium [Moles/Vol] 135 mmol/L 134 - 146 mmol/L [facility] Anion gap [Moles/Vol] 12 mmol/L 5 - 15 mmol/L [facility] Chloride [Moles/Vol] 108 mmol/L 98 - 10 9 mmol/L [facility] CO2 [Moles/Vol] 15 mmol/L Low 22 - 32 mmol/L [facility] Potassium [Moles/Vol] 3.7 mmol/L 3.5 - 5.0 mmol/L [facility] Sodium [Moles/Vol] 135 mmol/L 134 - 146 mmol/L [facility] Anion gap [Moles/Vol] 8 mmol/L 5 - 15 mmol/L [facility] Chloride [Moles/Vol] 108 mmol/L 98 - 10 9 mmol/L [facility] CO2 [Moles/Vol] 18 mmol/L Low 22 - 32 mmol/L [facility] Potassium [Moles/Vol] 3.7 mmol/L 3.5 - 5.0 mmol/L [facility] Sodium [Moles/Vol] 134 mmol/L 134 - 146 mmol/L [facility] Anion gap [Moles/Vol] 8 mmol/L 5 - 15 mmol/L [facility] Chloride [Moles/Vol] 116 mmol/L High 98 - 10 9 mmol/L [facility] CO2 [Moles/Vol] 15 mmol/L Low 22 - 32 mmol/L [facility] Interpretation and review of laboratory results Abnormal [facility] Potassium [Moles/Vol] 3.0 mmol/L Low 3.5 - 5.0 mmol/L [facility] Sodium [Moles/Vol] 139 mmol/L 134 - 146 mmol/L [facility] Anion gap [Moles/Vol] 8 mmol/L 5 - 15 mmol/L [facility] Chloride [Moles/Vol] 121 mmol/L High 98 - 10 9 mmol/L [facility] CO2 [Moles/Vol] 13 mmol/L Low 22 - 32 mmol/L [facility] Interpretation and review of laboratory results Abnormal [facility] Potassium [Moles/Vol] 3.2 mmol/L Low 3.5 - 5.0 mmol/L [facility] Sodium [Moles/Vol] 142 mmol/L 134 - 146 mmol/L [facility] Glucose Glucometer (dC) [M ass/Vol]on 07-03-2023 Glucose [Mass/Vol] 238 mg/dL High 65 - 99 mg/dL [facility] Interpretation and review of laboratory results Abnormal [facility] Glucose [Mass/Vol] 251 mg/dL High 65-99 [facility] Glucose [Mass/Vol] 265 mg/dL High 65 - 99 mg/dL [facility] Interpretation and review of laboratory results Abnormal [facility] Glucose [Mass/Vol] 243 mg/dL High 65-99 [facility] Glucose [Mass/Vol] 241 mg/dL High 65-99 [facility] Glucose [Mass/Vol] 251 mg/dL High 65 - 99 mg/dL [facility] Interpretation and review of laboratory results Abnormal [facility] Glucose [Mass/Vol] 243 mg/dL High 65 - 99 mg/dL [facility] Interpretation and review of laboratory results Abnormal [facility] Glucose [Mass/Vol] 171 mg/dL High 65-99 [facility] Glucose [Mass/Vol] 241 mg/dL High 65 - 99 mg/dL [facility] Interpretation and review of laboratory results Abnormal [facility] Glucose [Mass/Vol] 171 mg/dL High 65 - 99 mg/dL [facility] Interpretation and review of laboratory results Abnormal [facility] Glucose [Mass/Vol] 186 mg/dL High 65-99 [facility] Glucose [Mass/Vol] 186 mg/dL High 65 - 99 mg/dL [facility] Interpretation and review of laboratory results Abnormal [facility] Glucose [Mass/Vol] 130 mg/dL High 65-99 [facility] Interpretation and review of laboratory results Abnormal [facility] Glucose [Mass/Vol] 149 mg/dL High 65-99 [facility] Glucose [Mass/Vol] 200 mg/dL High 65-99 [facility] Glucose [Mass/Vol] 149 mg/dL High 65 - 99 mg/dL [facility] Interpretation and review of laboratory results Abnormal [facility] Glucose [Mass/Vol] 215 mg/dL High 65-99 [facility] Glucose [Mass/Vol] 253 mg/dL High 65-99 [facility] Interpretation and review of laboratory results Abnormal [facility] Glucose [Mass/Vol] 200 mg/dL High 65 - 99 mg/dL [facility] Interpretation and review of laboratory results Abnormal [facility] Glucose [Mass/Vol] 215 mg/dL High 65 - 99 mg/dL [facility] Interpretation and review of laboratory results Abnormal [facility] Glucose [Mass/Vol] 219 mg/dL High 65-99 [facility] Glucose [Mass/Vol] 223 mg/dL High 65-99 [facility] Glucose [Mass/Vol] 219 mg/dL High 65 - 99 mg/dL [facility] Interpretation and review of laboratory results Abnormal [facility] Glucose [Mass/Vol] 160 mg/dL High 65-99 [facility] Glucose [Mass/Vol] 223 mg/dL High 65 - 99 mg/dL [facility] Interpretation and review of laboratory results Abnormal [facility] Glucose [Mass/Vol] 154 mg/dL High 65-99 [facility] Glucose [Mass/Vol] 160 mg/dL High 65 - 99 mg/dL [facility] Interpretation and review of laboratory results Abnormal [facility] Glucose [Mass/Vol] 186 mg/dL High 65-99 [facility] Glucose [Mass/Vol] 154 mg/dL High 65 - 99 mg/dL [facility] Interpretation and review of laboratory results Abnormal [facility] Glucose [Mass/Vol] 212 mg/dL High 65-99 [facility] Glucose [Mass/Vol] 186 mg/dL High 65 - 99 mg/dL [facility] Interpretation and review of laboratory results Abnormal [facility] Glucose [Mass/Vol] 233 mg/dL High 65-99 [facility] Glucose [Mass/Vol] 212 mg/dL High 65 - 99 mg/dL [facility] Interpretation and review of laboratory results Abnormal [facility] Ionized calciumon 07-03-2023 Calcium.ionized (Bld) [Mass/Vol] 4.5 mg/dL 4.5 - 5.3 mg/dL [facility] Calcium.ionized (Bld) [Mass/Vol] 4.3 mg/dL Low 4.5 - 5.3 mg/dL [facility] MAGNESIUMon 07-03-2023 Magnesium [Mass/Vol] 1.8 mg/dL Normal 1.8-2.6 [facility] Comment on above: Performed By: #### 6 873-4, 89781-7, 97623-2, CMP, 22230-4, HA1C, CBCA #### [facility] ([id number]) [address], [address] [place] [address] Magnesiumon 07-03-2023 Magnesium [Mass/Vol] 1.8 mg/dL 1.8 - 2 .6 mg/dL [facility] No Panel Informationon 07-03 Interpretation and review of laboratory results Abnormal [facility] Interpretation and review of laboratory results Abnormal [facility] Interpretation and review of laboratory results Abnormal [facility] Interpretation and review of laboratory results Abnormal [facility] Interpretation and review of laboratory results Abnormal [facility] Interpretation and review of laboratory results Abnormal [facility] PHOSPHORUSon 07-03-2023 Phosphate [Mass/Vol] 1.1 mg/dL Low 2.4-4.9 [facility] Comment on above: Performed By: #### 6 873-4, 81438-6, 68546-3, CMP, 45961-0, HA1C, CBCA #### [facility] ([id number]) [address], [address] [place] [address] Phosphate [Mass/Vol] 2.2 mg/dL Low 2.4-4.9 [facility] Comment on above: Performed By: #### 6 873-4, 30651-7, 49410-7, CMP, 35030-0, HA1C, CBCA #### [facility] ([id number]) [address], [address] [place] [address] Phosphate [Mass/Vol] 1.9 mg/dL Low 2.4-4.9 [facility] Comment on above: Performed By: #### 6 873-4, 01514-8, 92525-4, CMP, 07627-4, HA1C, CBCA #### [facility] ([id number]) [address], [address] [place] [address] Phosphate [Mass/Vol] mg/dL Critically low 2.4-4.9 [facility] Comment on above: Performed By: #### 6 873-4, 93042-6, 34474-4, CMP, 91576-0, HA1C, CBCA #### [facility] ([id number]) [address], [address] [place] [address] Phosphate [Mass/Vol] 2.2 mg/dL Low 2.4-4.9 [facility] Comment on above: Performed By: #### 6 873-4, 53705-1, 12967-2, CMP, 02860-7, HA1C, CBCA #### [facility] ([id number]) [address], [address] [place] [address] Phosphate [Mass/Vol] mg/dL Critically low 2.4-4.9 [facility] Comment on above: Performed By: #### 6 873-4, 02101-0, 19067-1, CMP, 57198-8, HA1C, CBCA #### [facility] ([id number]) [address], [address] [place] [address] Phosphate [Mass/Vol]on 07-03 Interpretation and review of laboratory results Abnormal [facility] Phosphoruson 07-03-2023 Phosphate [Mass/Vol] 1.1 mg/dL Low 2.4 - 4 .9 mg/dL [facility] Phosphate [Mass/Vol] 2.2 mg/dL Low 2.4 - 4 .9 mg/dL [facility] Phosphate [Mass/Vol] 1.9 mg/dL Low 2.4 - 4 .9 mg/dL [facility] Phosphate [Mass/Vol] mg/dL Critically low 2.4 - 4.9 mg/dL [facility] Phosphate [Mass/Vol] 2.2 mg/dL Low 2.4 - 4 .9 mg/dL [facility] Phosphate [Mass/Vol] mg/dL Critically low 2.4 - 4.9 mg/dL [facility] TROPONIN Ion 07-03-2023 Troponin I.cardiac [Mass/Vol] 0.69 ng/mL Critically high 0.00-0.04 [facility] Comment on above: Result Comment: Concentrations greater than or equal to 0.05 ng/ml are considered elevated. Elevations of Troponin may be due to causes other than myocardial ischemia. Recommend serial Troponin testing be performed. Performed By: #### 6 873-4, 73229-6, 70557-2, CMP, 08984-7, HA1C, CBCA #### [facility] ([id number]) [address] [place] [address], [address] [address] Troponin I.cardiac [Mass/Vol] 0.75 ng/mL Critically high 0.00-0.04 [facility] Comment on above: Result Comment: Concentrations greater than or equal to 0.05 ng/ml are considered elevated. Elevations of Troponin may be due to causes other than myocardial ischemia. Recommend serial Troponin testing be performed. Performed By: #### 6 873-4, 24157-9, 43952-5, CMP, 98376-6, HA1C, CBCA #### [facility] ([id number]) [address] [place] [address] Troponin I.cardiac [Mass/Vol] 1.53 ng/mL Critically high 0.00-0.04 [facility] Comment on above: Result Comment: Concentrations greater than or equal to 0.05 ng/ml are considered elevated. Elevations of Troponin may be due to causes other than myocardial ischemia. Recommend serial Troponin testing be performed. Performed By: #### 6 873-4, 60734-9, 79387-9, CMP, 12785-6, HA1C, CBCA #### [facility] ([id number]) [address] [place] [address], [address] [place] [address] Troponin I.cardiac [Mass/Vol] 1.80 ng/mL Critically high 0.00-0.04 [facility] Comment on above: Result Comment: Concentrations greater than or equal to 0.05 ng/ml are considered elevated. Elevations of Troponin may be due to causes other than myocardial ischemia. Recommend serial Troponin testing be performed. Performed By: #### 6 873-4, 64478-5, 91397-8, [facility], 51856-9, HA1C, CBCA #### [facility] ([id number]) [address], [address] [place] [address] Troponin Ion 07-03-2023 Troponin I.cardiac [Mass/Vol] 0.69 ng/mL Critically high 0.00 - 0.04 ng/mL [facility] Comment on above: Concentrations greater than or equal to 0.05 ng/ml are considered elevated. Elevations of Troponin may be due to causes other than myocardial ischemia. Recommend serial Troponin testing be performed. Troponin I.cardiac [Mass/Vol] 0.75 ng/mL Critically high 0.00 - 0.04 ng/mL [facility] Comment on above: Concentrations greater than or equal to 0.05 ng/ml are considered elevated. Elevations of Troponin may be due to causes other than myocardial ischemia. Recommend serial Troponin testing be performed. Troponin I.cardiac [Mass/Vol] 1.53 ng/mL Critically high 0.00 - 0.04 ng/mL [facility] Comment on above: Concentrations greater than or equal to 0.05 ng/ml are considered elevated. Elevations of Troponin may be due to causes other than myocardial ischemia. Recommend serial Troponin testing be performed. Troponin I.cardiac [Mass/Vol] 1.80 ng/mL Critically high 0.00 - 0.04 ng/mL [facility] Comment on above: Concentrations greater than or equal to 0.05 ng/ml are considered elevated. Elevations of Troponin may be due to causes other than myocardial ischemia. Recommend serial Troponin testing be performed. Troponin I.cardiac [Mass/Vol ]on 07-03-2023 Interpretation and review of laboratory results Abnormal [facility] Interpretation and review of laboratory results Abnormal [facility] Beta hydroxybutyrate [Moles/ Vol]on 07-02-2023 BetaHydroxybutyrate 3.34 mmol/L High 0.02-0.27 [facility] Comment on above: Performed By: #### 6 873-4, ELEC, 2777-1 ####[facility] ([id number])[address], [address] [place] [address] BetaHydroxybutyrate 8.59 mmol/L High 0.02-0.27 [facility] Comment on above: Performed By: #### 6 873-4, 43835-2, 31256-5, CMP, 61873-8, HA1C, CBCA #### [facility] ([id number]) [address], [address] [place] [address] BetaHydroxybutyrateon 2023 Beta hydroxybutyrate [Moles/Vol] 3.34 mmol/L High 0.02 - 0.27 mmol/L [facility] Beta hydroxybutyrate [Moles/Vol] 8.59 mmol/L High 0.02 - 0.27 mmol/L [facility] Blood gas, venouson 07-02-19 24 Arterial patency Wrist artery --pre arterial puncture [facility] Base deficit (Bld) [Moles/Vol] 26.0 mmol/L High [facility] CO2 (BldV) [Partial pressure] 20.1 mm[Hg] Low [facility] HCO3 (Bld) [Moles/Vol] 4.5 mmol/L Low [facility] Interpretation and review of laboratory results Abnormal [facility] Oxygen (BldV) [Partial pressure] 27 mm[Hg] Low [facility] Oxygen therapy source and amount [CARE] RoomAir [facility] Oxygen/Inspired gas setting [Volume Fraction] Ventilator 21 % [facility] pH (BldV) 6.956 [pH] Low 7.320 - 7.420 [facility] SaO2% Calculated from oxygen partial pressure (BldV) [Mass fraction] 25.0 % Low 80.0 - PINF % [facility] Specimen site Narrative N/A P [facility] Specimen type Nom (Spec) VENOUS [facility] CBC AND AUTO DIFFon 07-02-19 24 ABSOLUTE BASOPHIL 0.2 X10E9/L Normal 0.0-0.2 [facility] Comment on above: Performed By: #### 6 873-4, 50658-9, 55913-9, CMP, 88986-1, HA1C, CBCA #### [facility] ([id number]) [address], [address] [place] [address] ABSOLUTE NEUTROPHIL 16.1 X10E9/L High 1.5-6.6 [facility] Comment on above: Performed By: #### 6 873-4, 20249-6, 38302-3, CMP, 92808-0, HA1C, CBCA #### [facility] ([id number]) [address], [address] [place] [address] Basophils/100 WBC (Bld) 0.9 % Normal [facility] Comment on above: Performed By: #### 6 873-4, 25202-1, 17475-3, CMP, 42448-7, HA1C, CBCA #### [facility] ([id number]) [address], [facility] [address] [place] [address] Eosinophils (Bld) [#/Vol] 0.0 10*3/uL Normal 0.0-0.4 [facility] Comment on above: Performed By: #### 6 873-4, 58094-6, 05322-4, CMP, 97166-1, HA1C, CBCA #### [facility] ([id number]) [address] [address] Eosinophils/100 WBC (Bld) 0.0 % Normal [facility] Comment on above: Performed By: #### 6 873-4, 96739-3, 51866-9, CMP, 60232-8, HA1C, CBCA #### [facility] ([id number]) [address] [address] Erythrocyte distribution width (RBC) [Ratio] 14.8 % Normal 11.5-15.0 [facility] Comment on above: Performed By: #### 6 873-4, 02452-6, 79987-8, CMP, 94771-6, HA1C, CBCA #### [facility] ([id number]) [address] [address] Hematocrit (Bld) [Volume fraction] 36.5 % Normal 35-47 [facility] Comment on above: Performed By: #### 6 873-4, 47950-6, 96283-7, CMP, 54796-1, HA1C, CBCA #### [facility] ([id number]) [address] [address] Hemoglobin (Bld) [Mass/Vol] 11.5 g/dL Low 11.7-15.5 [facility] Comment on above: Performed By: #### 6 873-4, 71966-8, 07441-2, CMP, 35708-2, HA1C, CBCA #### [facility] ([id number]) [address], [facility] [address] [place] [address] Lymphocytes (Bld) [#/Vol] 1.8 10*3/uL Normal 1.0-3.5 [facility] Comment on above: Performed By: #### 6 873-4, 67509-0, 42946-7, CMP, 59657-7, HA1C, CBCA #### [facility] ([id number]) [address], [address] [address] Lymphocytes/100 WBC (Bld) 9.3 % Normal [facility] Comment on above: Performed By: #### 6 873-4, 13213-5, 21875-6, CMP, 15749-0, HA1C, CBCA #### [facility] ([id number]) [address], [address] [address] MCH (RBC) [Entitic mass] 25.4 pg Low 27-34 [facility] Comment on above: Performed By: #### 6 873-4, 95779-0, 02294-6, CMP, 12756-2, HA1C, CBCA #### [facility] ([id number]) [address], [address] [address] MCHC (RBC) [Mass/Vol] 31.6 g/dL Low 32-36 [facility] Comment on above: Performed By: #### 6 873-4, 95134-0, 87894-0, CMP, 02528-2, HA1C, CBCA #### [facility] ([id number]) [address], [address] [address] MCV (RBC) [Entitic vol] 81 fL Normal 80-100 [facility] Comment on above: Performed By: #### 6 873-4, 23172-5, 74006-7, CMP, 75839-2, HA1C, CBCA #### [facility] ([id number]) [address], [address] [place] [address] Monocytes (Bld) [#/Vol] 1.1 10*3/uL High 0-0.9 [facility] Comment on above: Performed By: #### 6 873-4, 24795-3, 89789-6, CMP, 05326-6, HA1C, CBCA #### [facility] ([id number]) [address], [address] [place] [address] Monocytes/100 WBC (Bld) 5.7 % Normal [facility] Comment on above: Performed By: #### 6 873-4, 42221-5, 40545-5, CMP, 09788-8, HA1C, CBCA #### [facility] ([id number]) [address], [address] [place] [address] Neutrophils/100 WBC (Bld) 84.1 % Normal [facility] Comment on above: Performed By: #### 6 873-4, 18359-5, 33235-5, CMP, 49278-2, HA1C, CBCA #### [facility] ([id number]) [address], [address] [place] [address] Platelet mean volume (Bld) [Entitic vol] 7.8 fL Normal 7-12 [facility] Comment on above: Performed By: #### 6 873-4, 13427-7, 93395-1, CMP, 52051-1, HA1C, CBCA #### [facility] ([id number]) [address], [address] [place] [address] Platelets (Bld) [#/Vol] 261 10*3/uL Normal 150-450 [facility] Comment on above: Performed By: #### 6 873-4, 10370-8, 22968-2, CMP, 40128-3, HA1C, CBCA #### [facility] ([id number]) [address], [address] [place] [address] RBC COUNT 4.53 X10E12/L Normal 3.80-5.20 [facility] Comment on above: Performed By: #### 6 873-4, 67096-1, 64002-8, CMP, 01914-9, HA1C, CBCA #### [facility] ([id number]) [address], [address] [place] [address] WBC (Bld) [#/Vol] 19.2 10*3/uL High 4.0-11.0 [facility] Comment on above: Performed By: #### 6 873-4, 98457-5, 55504-1, CMP, 13038-2, HA1C, CBCA #### [facility] ([id number]) [address] [facility], [address] [place] [address] CBC auto differentialon Basophils (Bld) [#/Vol] 0.2 10*3/uL [facility] Basophils/100 WBC (Bld) 0.9 % [facility] Eosinophils (Bld) [#/Vol] 0.0 10*3/uL [facility] Eosinophils/100 WBC (Bld) 0.0 % [facility] Erythrocyte distribution width (RBC) [Ratio] 14.8 % 11.5 - 15.0 % [facility] Hematocrit (Bld) [Volume fraction] 36.5 % 35 - 47 % [facility] Hemoglobin (Bld) [Mass/Vol] 11.5 g/dL Low 11.7 - 15.5 g/dL [facility] Interpretation and review of laboratory results Abnormal [facility] Lymphocytes (Bld) [#/Vol] 1.8 10*3/uL [facility] Lymphocytes/100 WBC (Bld) 9.3 % [facility] MCH (RBC) [Entitic mass] 25.4 pg Low 27 - 34 pg [facility] MCHC (RBC) [Mass/Vol] 31.6 g/dL Low 32 - 36 g/dL [facility] MCV (RBC) [Entitic vol] 81 fL 80 - 100 fL [facility] Monocytes (Bld) [#/Vol] 1.1 10*3/uL High [facility] Monocytes/100 WBC (Bld) 5.7 % [facility] Neutrophils (Bld) [#/Vol] 16.1 10*3/uL High [facility] Neutrophils/100 WBC (Bld) 84.1 % [facility] Platelet mean volume (Bld) [Entitic vol] 7.8 fL 7 - 12 fL [facility] Platelets (Bld) [#/Vol] 261 10*3/uL [facility] RBC (Bld) [#/Vol] 4.53 10*6/uL [facility] WBC corrected for nucl RBC Auto (Bld) [#/Vol] 19.2 High [facility] COMPREHENSIVE METABOLIC PANE [place] 07-02-2023 Albumin [Mass/Vol] 4.0 g/dL Normal 3.2-5.3 [facility] Comment on above: Performed By: #### 6 873-4, 46769-9, 43313-5, CMP, 11746-5, HA1C, CBCA #### [facility] ([id number]) [address], [address] [place] [address] ALP [Catalytic activity/Vol] 93 U/L Normal 39-130 [facility] Comment on above: Performed By: #### 6 873-4, 98691-8, 80206-0, CMP, 29875-5, HA1C, CBCA #### [facility] ([id number]) [address], [address] [place] [address] ALT [Catalytic activity/Vol] 17 U/L Normal 0-31 [facility] Comment on above: Performed By: #### 6 873-4, 74814-9, 96977-3, CMP, 01397-7, HA1C, CBCA #### [facility] ([id number]) [address], [address] [place] [address] Anion gap [Moles/Vol] 20 mmol/L High 5-15 [facility] Comment on above: Performed By: #### 6 873-4, 53048-2, 07293-7, CMP, 97736-9, HA1C, CBCA #### [facility] ([id number]) [address], [address] [place] [address] AST [Catalytic activity/Vol] 25 U/L Normal 0-41 [facility] Comment on above: Performed By: #### 6 873-4, 82017-9, 57603-0, CMP, 19180-4, HA1C, CBCA #### [facility] ([id number]) [address], [address] [place] [address] Bilirubin [Mass/Vol] 0.2 mg/dL Low 0.3-1.2 [facility] Comment on above: Performed By: #### 6 873-4, 59496-7, 01330-8, CMP, 02745-5, HA1C, CBCA #### [facility] ([id number]) [address], [address] [place] [address] Calcium [Mass/Vol] 7.0 mg/dL Low 8.5-10.5 [facility] Comment on above: Performed By: #### 6 873-4, 09711-9, 55896-0, CMP, 16957-1, HA1C, CBCA #### [facility] ([id number]) [address], [address] [place] [address] Chloride [Moles/Vol] 116 mmol/L High 98-109 [facility] Comment on above: Performed By: #### 6 873-4, 94855-5, 16754-1, CMP, 97374-1, HA1C, CBCA #### [facility] ([id number]) [address], [address] [place] [address] CO2 [Moles/Vol] 5 mmol/L Critically low 22-32 [facility] Comment on above: Performed By: #### 6 873-4, 11318-7, 78764-8, CMP, 63007-3, HA1C, CBCA #### [facility] ([id number]) [address], [address] [place] [address] Creatinine [Mass/Vol] 0.71 mg/dL Normal 0.40-1.00 [facility] Comment on above: Result Comment: METH OD TRACEABLE TO IDMS STANDARD Performed By: #### 6 873-4, 37164-3, 33073-1, CMP, 52598-1, HA1C, CBCA #### [facility] ([id number]) [address], [address] [address] eGFR (CKD-EPI) NON-RACE DEPENDENT >90 Normal >59 [facility] Comment on above: Result Comment: Reported eGFR is based on the CKD-EPI 2020 equation that does not use a race coefficient. Performed By: #### 6 873-4, 40507-7, 28588-4, CMP, 29014-7, HA1C, CBCA #### [facility] ([id number]) [address], [address] [place] [address] Glucose [Mass/Vol] 260 mg/dL High 65-99 [facility] Comment on above: Performed By: #### 6 873-4, 11136-4, 99505-6, CMP, 60159-3, HA1C, CBCA #### [facility] ([id number]) [address], [address] [place] [address] Potassium [Moles/Vol] 4.6 mmol/L Normal 3.5-5.0 [facility] Comment on above: Performed By: #### 6 873-4, 36720-5, 57601-5, CMP, 00243-7, HA1C, CBCA #### [facility] ([id number]) [address], [address] [place] [address] Protein [Mass/Vol] 6.4 g/dL Normal 6.0-8.0 [facility] Comment on above: Performed By: #### 6 873-4, 30470-5, 53443-0, CMP, 03079-1, HA1C, CBCA #### [facility] ([id number]) [address], [address] [place] [address] Sodium [Moles/Vol] 141 mmol/L Normal 134-146 [facility] Comment on above: Performed By: #### 6 873-4, 49736-6, 28813-2, CMP, 47352-5, HA1C, CBCA #### [facility] ([id number]) [address], [address] [place] [address] Urea nitrogen [Mass/Vol] 16 mg/dL Normal 5-23 [facility] Comment on above: Performed By: #### 6 873-4, 69565-8, 41470-4, CMP, 66116-6, HA1C, CBCA #### [facility] ([id number]) [address], [address] [place] [address] Coding Summaryon 07-02-2023 Coding Summary HTMLBase 64 XgknwhrcDLw1hLk+PGhl YWQ+ZC6DCUTyI71fzTNt mA2qW8FYZKdTJmitBBIB MKnEHfVbdfAcJR4coULe ZXJu IC8+FH4tUXYpNalguOCo k1U3uEH9S98xoq1pHTwo tOC7LBWsDbBihwdcz4ll oDb4OKtuTekkDtOj RZDtxO17ELS9fI90Py06 bIUplYLmp1dcrNe1JaSt CGUbSGL9jDmyTXddz3Ob RQXdJ24cxVDyr6M1 IGNvbGxhcHNlOyBlbXB0 oH6uXBdtkcabt0hqtcmt Rwm0ow28eEEsb1C0qQY3 E0RacrO1YPUynSSw VnnzlZGUvX5dtgfdx6ss jwvkQuNlIMJsLPn0WGn1 FXVwzTxmCdNiSY07LRV5 PXXyplBfR0CzVFRg pMujZvB7m6W5Cm7GF5KF KstpE6BLYXMDLCkqiIE+ OH91jo83A8InCjzvRcw4 TPEgSHG6bZJ3uD4x VYJwVAari5L6xRM2O4Ey lpVqtx3ka2jcMBObYAnb X72omVAkc0F1UZOgoZF4 OYQkoJwxLfYxjI82 Oyc+ZLKqvSoiw4JkZlyt i8qyl0xxnDw1DrgqMDKs noKxhAhlNGH0i4EkYb6w DPFkdPT8sYQ1eM5c NxOwTeY4XBnxE352OaGh gMDqXmxcC05gA4DlqZJ+ RPHjZef9FETnuNfrLR4r U0BcPTAgtpmptDCj gKvhFD8yRHBybigsVIIg lJ2uVBZfX1b1NaMvLpG2 FOooW4WhTTPylmfuCf67 vH0zWrVeJrH6KGbk L5LvksS2DFYjsZYrCFiz QXB3T45mi7R5YAFxMBRv QPM5sUN5wP9ksTlgdhts bGVmdDsgdmVydGlj VHydGNemY866VEUraVym PkNvZGluZyBEYXRlOiAg MDEvMDMvMjAyNDwvdGQ+ CMYmEXV5hLfwGKVv oJJtLVqcOt4vzSznhAuv WT1qKFGldhbtJGDziW5q LTFndXLplEobCX6pZYMm weqrq526QdAeSAG2 FFOpaFUeJ1QevR2nPrLw QYYqNVJdB6HutWNxOEzx G568WXweFfD6DRLdrkVn L1TfWMIyqWtwUeS7 u3M5Wt2Nk2PuovsdB5Qa vQWaHaCtRmcvTGi7Z7Su PjwvdHI+NB68XVKmFL35 DHl5SUM7lNavAHfv CDBnA4YsrS6qRdIdPHSw ZGRkOyc+PHRhYmxlIHdp ZHRoPScxMDAlJyBzdHls PR4lKw2iLZKvPOXj rDadzSByMcPkw1shZVXm XJqdAY0tzPdqQ5SifON3 WFNix1j3Eo15G56aL6Sk dXA+DZUxsMA2qUU2 eC6hZxTrRxT1HUysG008 NuNlbTYkLtuak3sup4hh wDr7GiG8CQBelpFybHty ASN2w5VeKa22Q76v IHdpZHRoPSIxNSUiIHZh pLvpoa1xtL1fVm5+PGNv qGR3qXU2bE3dLgPwYzT3 GDnfE918PmPwhWOo Oremz9cst8siaYm6SyBh YTUkgtUgvAzvLMS8l0Cp Fl28P0HxxQoah7KmQoy7 vf34xKKkq0Q5jEH3 V7AoKVHagmmgdMYhhIqz YD2yIJGyvwtsICWotV3d UHNaQ5m8CeNaQwM7QLow Z7MflkK8GSWaoOQk VWEusKYHfE0odmant7xv pejmHdZgLYFsROw2JKc8 CTZthExsGfNaGSR6XdQ8 YPB3nAFqdA4uuJsg aaitzH1pKyd+LLG2dRFx dNHXHV0eLdpcuPG+PHRk TZC7nCblYQjtJCMhrK3w WHSmU0v5WbEtKiS4 TRrpG7JlzdK7PQCgnBEy RHKuhDTTwF3giqspp3zm pgzuXiFzJBIlRJh7GTp5 LWFsaWduOiBsZWZ0 ByV1UWM7nUEbwX9yqGwc lztgoW6eTkk+QmlydGgg UES7AAy8B6KdVio5JMHd fMbjBZ5zjSEpXIor Ro1obFxqcCxmFT4yHEPr cmhef797EtLvg3kzTWJr kTLlCNxkNEN4L25lk5B0 QQLhLRBzRXM2bXE0 pQ9roSbgcpebqCFdxNxs jaQcaMnbOJahEYxmF388 QEAhvAyuJkLeDPm7I5Qt Dfj7BXTivNgsWU4u aQSfUAauCa5zzSpjrEjg WU1rFAAoacnlw179DtGf n2lnREAsmMXaLFzpSAU6 M57oa5J2UTTpYXOb NTX8xGK5pE0qqTubjhjt bGVmdDsgdmVydGljYWwt PXuiA946UFQfaLxsSiIo gUo5O5TiLbe2ZKOg bYhnOU7prHEzEWglNd9x mNdkaAbfCW0rEUPgmdfx q652EsYqu9nxIRLkmVEx IEopSUH3D24cg1V2 VXJrDLByXGZ7sXX7lG0i bGlnbjogbGVmdDsgdmVy rHtnHLllDGssA440USAx cDsnPlBhdGllbnQg BBdwYCe2R2GyFjnjiRL+ GK08UGWzNN01uCGcmSCc h7ekfBi8PzBmAZUpUZP5 gZnmONqxf7XzYIFt M82kjTQyw6Q4FVOqjUms kNZgGjAgqSP3vS6iTPyu ducjl6cfhidjKmgcy1ee xs91fU13E86nOPqi ZHRoPSIzMCUiIHZhbGln ye3taK6dHl9+PGNvbCB3 lVF5zQ6fWHWbZuE2BQjg U425YnYjwRPcUeri i2xhj5slvFi1DpY9DPBx icPtpOlvYEA8p2BuAt69 M73bICnsDHVoECBtVCYr ZUExtIzrbv3kbZ4n Ii8+TYChpLV9sZR0tO5u KwMtUdD3NTznO768GfSg cHZiAlapM96hW9DaeRJ+ QITjCop6MWEaeSpa SX8tuBEcLIneYs3nAFG9 QlExNpKgLJztE6WcCCHp rdnxyxgcbKI9WDCbHJLy jX25Go7mpUfnSWPo oKVDlX6nwgnfz1fhjdwp DbLaBTUzLWz3QXk9YCDr jTlwNuSvNVE8FoD0RUD8 yZXouH3xeWiitafi uN0aU3PsMGHrjdkxAp45 bC8lWfPmGuW0TLlnVjs+ ZB0UIKUNJLXANUiJRTXJ ZJFOOCT1S6ItYii7 ERFpzMvbFS2jyPKuDZfm Kg2gzTzatWauWX0gITZs efpyEPLkgM7dYQSafCXg iUnzHM3sEIObgnxz r063YwQzHXD7IABzfOFg U5HisM0aGeGeBVLeJBPi E0CznCAeFIqwB306ABvs OfQ1VLWjpfGkB4Vo KDZdeCwpZaN4v7C5Sv3h Ky3kZQ4qIVfqMR39CU53 uXKbl8X5yJL9L4VsEFOg yjxwvxeavLX4RYOe MGQjbD14zEJuJOvuEz3o s7B1a293PEWhMZIkjM69 Lb4hfVkoJELwhLSCfT2e telbd7gdonpnFnCc JCFhPCt7IPo8MNYirDpz XcXmDUJ7ZlO4BYK1lOKi fJ2hlObjtacysJ0dKol+ IsIlYGFswnJ4S0Fa Xla0ZYPtjKlfPW5vtFHk MBalLj0ijDqexYyoCF7g HVXluuscNBYegW5sNRXf aJPwsJwvEF3cXXDz cozpr173RjGkXNG5KQGx mYToK7PwwA3sEeYaMVFd JQPeT1FgcZKcRDcxD101 FAcrQnD3RGBrqgAz T1OqGQPxhQyiTdZ1q3P3 Ke2AIX9QUPY8S7JcHej9 WMLfsKcaTY2juTJdNNjg Zp5ghPoroQvdVI4p WLTuwouoTVAjxB1gZABw jIMhoZcbCO3uFDCppgkn j163IeQkWHP0NHOusWPr Y1RgkN3qYdKuJEEh OPMmO6HjcXHoKYemE456 ZFwmNsX3PRCxlcHzL3Rd VORtxQbkUxN5c3G5Lk9L uyDyfOlifzB2J0Wj PjwvdHI+TH09SSLuEF85 cHInrMJgr4pokOi1RfOl MAXgACN6gOyzQYosz8Ni GKByN24foMGgb5M5 IGNvbGxhcHNlOyBlbXB0 vA5uJHfmgxbdw7autyni Aayup5oelh82bX79Y60z IHdpZHRoPSIzMCUi EBSaaJayxu8vtN7jJg2+ AYXhnRL8wKI3wA0oPtGj DgN1XUhnS659YbSffRIq Lzrvu9kqs1fqjUa0 IjIwJSIgdmFsaWduPSJ0 z3RyXs92A79nEVutKUXt OPKpUIHwVFBbsYttup5k iR8hNr1+NP4pw4za np63zE02nIO+PHRkIHN0 bAnpGTkiYITskB0dJTvj FiW9VBVhXdUezR48zREu JDenHw7fqJelfHhx RR8jGFTviqboh920HvCj x5poKRLclRFnDKalYZK2 B00un8L1GBEoZVHvMZI7 kXA7qV0whSjrwndo bGVmdDsgdmVydGljYWwt WKcxQ785SVOldGnnZsHg tHCvL7envoDLJQ6aWxcx dGQ+KRTuKOI1qCof XVpcOWQwiW2nLBQyD5j7 PpMcTfH2CUzkV6SgxpY4 MDVvqQXhKVNjeBLGhT5p houfl7agkovgYeKk YFVtZYf6HFd7EVAsdPsk OqDcUUA1IkZ3IPG6sXQy bW1zzGsmoqnmeY7xYdc+ RklOOjwvdGQ+PHRk QUD9zSghATiqVBEafB0c RDFcV9o8VnMuFdK1VPvr L8AdtaP4GVZefOAgOVCx yYCRwZ8iwoxbk0jw refkLcEuVLZfOFj4HBz6 CXDakTsyXzRiTUL8ZmP5 DDN1kHXeaS5rlDuieavd cQ4oDpt+TVJOOjwv dGQ+IQSkXXU2aWecGUdj PMHtlY5lNYOmU3x5AvTv QwO4BDuxK7DekqG0QYIk mGZeKXFzjPHAuH9h wifyt6ryjymmShUiAJAx DFn1GWb9QGKojTefVnTg XAD0EgN6AMV4qHKlcB7w eRwfdnycyF5dFet+ HHF8ESI4OE44IG20M5Gz PjwvdGFibGU+PHRhYmxl IHdpZHRoPScxMDAlJyBz uWjvMR5cOo9gWRMt LWN (more content not included)... Normal [facility] Comprehensive metabolic pane galileo 07-02-2023 Albumin [Mass/Vol] 4.0 g/dL 3.2 - 5.3 g/dL [facility] ALP [Catalytic activity/Vol] 93 U/L 39 - 130 U/L [facility] ALT No additional P-5'-P [Catalytic activity/Vol] 17 U/L 0 - 31 U/L [facility] Anion gap [Moles/Vol] 20 mmol/L High 5 - 15 mmol/L [facility] AST [Catalytic activity/Vol] 25 U/L 0 - 41 U/L [facility] Bilirubin [Mass/Vol] 0.2 mg/dL Low 0.3 - 1 .2 mg/dL [facility] Calcium [Mass/Vol] 7.0 mg/dL Low 8.5 - 10. 5 mg/dL [facility] Chloride [Moles/Vol] 116 mmol/L High 98 - 10 9 mmol/L [facility] CO2 [Moles/Vol] 5 mmol/L Critically low 22 - 32 mmol/L [facility] Creatinine [Mass/Vol] 0.71 mg/dL 0.40 - 1.00 mg/dL [facility] Comment on above: METHOD TRACEABLE TO [facility] STANDARD eGFR (CKD-EPI)non-race dependent - PINF [facility] Comment on above: Reported eGFR is based on the CKD-EPI 2020 equation that does not use a race coefficient. Glucose [Mass/Vol] 260 mg/dL High 65 - 99 mg/dL [facility] Potassium [Moles/Vol] 4.6 mmol/L 3.5 - 5.0 mmol/L [facility] Protein [Mass/Vol] 6.4 g/dL 6.0 - 8.0 g/dL [facility] Sodium [Moles/Vol] 141 mmol/L 134 - 146 mmol/L [facility] Urea nitrogen [Mass/Vol] 16 mg/dL 5 - 23 mg/d L [facility] ELECTROLYTESon 07-02-2023 Anion gap [Moles/Vol] 13 mmol/L Normal 5-15 [facility] Comment on above: Performed By: #### 6 873-4, ELEC, 2777-1 ####[facility] ([id number])[address], [address] [place] [address] Chloride [Moles/Vol] 118 mmol/L High 98-109 [facility] Comment on above: Performed By: #### 6 873-4, ELEC, 2777-1 ####[facility] ([id number])[address], [address] [place] [address] CO2 [Moles/Vol] 9 mmol/L Critically low 22-32 [facility] Comment on above: Performed By: #### 6 873-4, ELEC, 2776- ####[facility] ([id number])[address], [address], [place] [address] Potassium [Moles/Vol] 3.5 mmol/L Normal 3.5-5.0 [facility] Comment on above: Performed By: #### 6 873-4, ELEC, 2776- ####[facility] ([id number])[address], [address], [place] [address] Sodium [Moles/Vol] 140 mmol/L Normal 134-146 [facility] Comment on above: Performed By: #### 6 873-4, ELEC, 2776-06 ####[facility] ([id number])[address], [address] [place] [address] Electrolyte panelon 07-02-19 Anion gap [Moles/Vol] 13 mmol/L 5 - 15 mmol/L [facility] Chloride [Moles/Vol] 118 mmol/L High 98 - 10 9 mmol/L [facility] CO2 [Moles/Vol] 9 mmol/L Critically low 22 - 32 mmol/L [facility] Potassium [Moles/Vol] 3.5 mmol/L 3.5 - 5.0 mmol/L [facility] Sodium [Moles/Vol] 140 mmol/L 134 - 146 mmol/L [facility] Glucose Glucometer (BldC) [M ass/Vol]on 07-02-2023 Glucose [Mass/Vol] 237 mg/dL High 65-99 [facility] Glucose [Mass/Vol] 287 mg/dL High 65-99 [facility] Glucose [Mass/Vol] 233 mg/dL High 65 - 99 mg/dL [facility] Interpretation and review of laboratory results Abnormal [facility] Glucose [Mass/Vol] 247 mg/dL High 65-99 [facility] Glucose [Mass/Vol] 237 mg/dL High 65 - 99 mg/dL [facility] Interpretation and review of laboratory results Abnormal [facility] Glucose [Mass/Vol] 287 mg/dL High 65 - 99 mg/dL [facility] Interpretation and review of laboratory results Abnormal [facility] Glucose [Mass/Vol] 254 mg/dL High 65-99 [facility] Glucose [Mass/Vol] 255 mg/dL High 65-99 [facility] Glucose [Mass/Vol] 247 mg/dL High 65 - 99 mg/dL [facility] Interpretation and review of laboratory results Abnormal [facility] Glucose [Mass/Vol] 254 mg/dL High 65 - 99 mg/dL [facility] Interpretation and review of laboratory results Abnormal [facility] Glucose [Mass/Vol] 231 mg/dL High 65-99 [facility] Glucose [Mass/Vol] 255 mg/dL High 65 - 99 mg/dL [facility] Interpretation and review of laboratory results Abnormal [facility] Glucose [Mass/Vol] 231 mg/dL High 65 - 99 mg/dL [facility] Interpretation and review of laboratory results Abnormal [facility] HGB A1C (GLYCO-HGB)on 2023 Glucose [Mass/Vol] 398 mg/dL Normal [facility] Comment on above: Performed By: #### 6 873-4, 84167-1, 93294-4, [facility], 74835-7, HA1C, CBCA #### [facility] ([id number]) [address], [address] [place] [address] HbA1c (Bld) [Mass fraction] 15.5 % High 4.4-5.6 [facility] Comment on above: Result Comment: NOTE ADA Guidelines Result HgbA1c Normal : less than 5.7 % Prediabetes : 5.7 % to 6.4 % Diabetes : > 6.4 % Use with caution in patients with abnormal hemoglobin variants as the half-life of red blood cells and in vivo glycation rates are affected. Performed By: #### 6 873-4, 47695-6, , CMP, 34890-0, HA1C, CBCA #### [facility] ([id number]) [address] [facility], [address] [place] [address] Hemoglobin A1con 07-02-2023 Average glucose Estimated from glycated hemoglobin (Bld) [Mass/Vol] 398 mg/dL [facility] HbA1c (Bld) [Mass fraction] 15.5 % High 4.4 - 5.6 % [facility] Comment on above: NOTE ADA Guidelines Result HgbA1c Normal : less than 5.7 % Prediabetes : 5.7 % to 6.4 % Diabetes : > 6.4 % Use with caution in patients with abnormal hemoglobin variants as the half-life of red blood cells and in vivo glycation rates are affected. Interpretation and review of laboratory results Abnormal [facility] Lactateon 07-02-2023 Lactate (P denis) [Moles/Vol] 0.8 mmol/L 0.4 - 2.0 mmol/L [facility] Lactate (P denis) [Moles/Vol]o n 07-02-2023 Lactate [Moles/Vol] 0.8 mmol/L Normal 0.4-2.0 [facility] Comment on above: Performed By: #### 6 873-4, 02636-6, , CMP, 30644-5, HA1C, CBCA #### [facility] ([id number]) [address] [facility], [address] [place] [address] [facility] MAGNESIUMon 07-02-2023 Magnesium [Mass/Vol] 1.7 mg/dL Low 1.8-2.6 [facility] Comment on above: Performed By: #### 6 873-4, 61906-7, 25000-8, CMP, 76315-5, HA1C, CBCA #### [facility] ([id number]) [address], [address] [place] [address] Magnesiumon 07-02-2023 Magnesium [Mass/Vol] 1.7 mg/dL Low 1.8 - 2 .6 mg/dL [facility] Magnesium [Mass/Vol]on 07-02 Interpretation and review of laboratory results Abnormal [facility] No Panel Informationon 07-02 Interpretation and review of laboratory results Abnormal [facility] Interpretation and review of laboratory results Abnormal [facility] PHOSPHORUSon 07-02-2023 Phosphate [Mass/Vol] mg/dL Critically low 2.4-4.9 [facility] Comment on above: Performed By: #### 6 873-4, ELEC, 2777-1 ####[facility] ([id number])[address] [place] [address], [address] [address] Phosphoruson 07-02-2023 Phosphate [Mass/Vol] mg/dL Critically low 2.4 - 4.9 mg/dL [facility] TROPONIN Ion 07-02-2023 Troponin I.cardiac [Mass/Vol] 0.93 ng/mL Critically high 0.00-0.04 [facility] Comment on above: Result Comment: Concentrations greater than or equal to 0.05 ng/ml are considered elevated. Elevations of Troponin may be due to causes other than myocardial ischemia. Recommend serial Troponin testing be performed. Performed By: #### 6 873-4, 09644-8, 48062-4, CMP, 33158-6, HA1C, CBCA #### [facility] ([id number]) [address] [place] [address], [address] [place] [address] Troponin Ion 07-02-2023 Troponin I.cardiac [Mass/Vol] 0.93 ng/mL Critically high 0.00 - 0.04 ng/mL [facility] Comment on above: Concentrations greater than or equal to 0.05 ng/ml are considered elevated. Elevations of Troponin may be due to causes other than myocardial ischemia. Recommend serial Troponin testing be performed. VENOUS BLOOD GASon 4 CAMI'S TEST Normal [facility] Comment on above: Performed By: #### V BG #### [facility] ([id number]) [address] [place] [address] BASE,DEFICIT 26.0 MMOL/L High 0.0-2.0 [facility] Comment on above: Performed By: #### V BG #### [facility] ([id number]) [address] [place] [address] Body temperature 98.6 [degF] Normal 37.0 [facility] Comment on above: Performed By: #### V BG #### [facility] ([id number]) [address] [place] [address] HCO3 (Bld) [Moles/Vol] 4.5 mmol/L Low 20.0-24.0 [facility] Comment on above: Performed By: #### V BG #### [facility] ([id number]) [address] [place] [address] INSP. O2 CONC. 21 % Normal [facility] Comment on above: Performed By: #### V BG #### [facility] ([id number]) [address] [place] [address] Oxygen saturation in Blood 25.0 % Low >80.0 [facility] Comment on above: Performed By: #### V BG #### [facility] ([id number]) [address] [place] [address] OXYGEN SOURCE RoomAir Normal [facility] Comment on above: Performed By: #### V BG #### [facility] ([id number]) [address] [place] [address] PCO2, VENOUS 20.1 MMHG Low 35-50 [facility] Comment on above: Performed By: #### V BG #### [facility] ([id number]) [address] [place] [address] PH, VENOUS 6.956 Low 7.320-7.420 [facility] Comment on above: Performed By: #### V BG #### [facility] ([id number]) [address] [place] [address] PO2, VENOUS 27 MMHG Low 30-50 [facility] Comment on above: Performed By: #### V BG #### [facility] ([id number]) [address] [place] [address] SAMPLE SITE N/A Normal [facility] Comment on above: Performed By: #### V BG #### [facility] ([id number]) [address] [place] [address] SAMPLE TYPE VENOUS Normal [facility] Comment on above: Performed By: #### V BG #### [facility] ([id number]) [address] [place] [address] C Bloodon 06-17-2023 C Blood No growth at [address] [facility] Comment on above: Performed By: #### 6 [id number] ####[facility] (DEFAULT)[address] [place] [address] Coding Queryon 06-17-2023 Coding Query HIM CODING QUERY FORM Accurate coding and billing requires that the principal diagnosis, secondary diagnosis and procedures be supported by physician documentation and that this documentation be reflected in the discharge summary (if required for patient type). Any time this information is not complete, it is the utility forester?s responsibility to query the physician. Based on medical record review, the following issues have been identified: (XX ) Please complete ED Note. Thank you for your cooperation and timely attention to this matter. Magnolia griffin [Electronically Signed on: 06/26/2023 17:47 EST] Jaun Uribe MD [Verified on: 06/26/2023 17:47 EST] Jaun Uribe MD [Transcribed on: 06/17/2023 15:38 EST] [facility] Provider Orderson 06-17-2023 Provider Orders [id number] [facility] 06-16-2023 Consent Forms [id number]# [facility] Telemetry Stripson Telemetry Strips [id number] [facility] Acute Hepatitis LCon 023 HBsAg Screen LC Negative Invalid Interpretation Code Negative [facility] Comment on above: Performed By: #### 7 [id number] ####[facility] (DEFAULT)[address] [place] [address] Hep A Ab, IgM LC Negative Invalid Interpretation Code Negative [facility] Comment on above: Performed By: #### 3 [id number] ####[facility] (DEFAULT)[address] [place] [address] Hep B Core Ab, IgM LC Negative Invalid Interpretation Code Negative [facility] Comment on above: Performed By: #### 9 [id number] ####[facility] (DEFAULT)[address] [place] [address] Hepatitis C Ab LC Non-Reactive Invalid Interpretation Code Non Reactive [facility] Comment on above: Result Comment: Perf ormed At: [id number] [place], [place] [id number] Vilma Ho PhD Ph:[phone] Performed By: #### 4 [id number] ####[facility] (DEFAULT)[address] [place] [address] RPR, Rfx Qn RPR/Confirm TP L Con 06-14-2023 RPR LC Non-Reactive Invalid Interpretation Code Non Reactive [facility] Comment on above: Result Comment: Perf ormed At: [address] [id number] [place], [place] [id number] Vilma Ho PhD Ph:[phone] Performed By: #### 5 [id number], [id number] #### [facility] (DEFAULT) [address] [place] [address] .Auto Diff 1on 06-13-2023 Auto Bremer % 7 % Normal 12 [facility] Comment on above: Performed By: #### 7 017842, [id number], 10342828, 5538829, 7127351, 8641253 ####[facility] (DEFAULT)[address] [place] [address] Baso Abs# 0.0 x10 Normal 0.0-0.2 [facility] Comment on above: Performed By: #### 7 236999, [id number], 95168665, 0740044, 7421527, 1864971 ####[facility] (DEFAULT)[address] [place] [address] Basophils/100 WBC (Bld) 0.4 % Normal 0.2-2.0 [facility] Comment on above: Performed By: #### 7 621589, 3801695604, 42939800, 5666742, 3257608, 7466674 ####[facility] (DEFAULT)[address] [place] [address] Eos Abs# 0.2 x10 Normal 0.0-0.4 [facility] Comment on above: Performed By: #### 7 397852, 0019798565, 31374949, 2767726, 3144378, 4465958 ####[facility] (DEFAULT)[address] [place] [address] Eosinophils/100 WBC (Bld) 2.2 % Normal 0.9-4.0 [facility] Comment on above: Performed By: #### 7 781836, 4196786957, 59962253, 9319685, 3023566, 2926118 ####[facility] (DEFAULT)[address] [place] [address] Lymph Abs# 2.7 x10 Normal 1.3-2.9 [facility] Comment on above: Performed By: #### 7 422705, 9809063403, 06917252, 6591963, 8079461, 1987757 ####[facility] (DEFAULT)[address] [place] [address] Lymphocytes/100 WBC (Bld) 36 % Normal 14-48 [facility] Comment on above: Performed By: #### 7 420107, 7475504950, 31527675, 8561443, 4996527, 4664616 ####[facility] (DEFAULT)[address] [place] [address] Bremer Abs# 0.5 x10 Normal 0.0-0.8 [facility] Comment on above: Performed By: #### 7 079578, 4537909444, 48012610, 6126291, 5791529, 5889112 ####[facility] (DEFAULT)[address] [place] [address] Neut Abs# 4.0 x10 Normal 1.5-9.2 [facility] Comment on above: Performed By: #### 7 609907, 5956185241, 35947078, 7956337, 6188774, 5492279 ####[facility] (DEFAULT)[address] [place] [address] Neutrophils/100 WBC (Bld) 54 % Normal 44-88 [facility] Comment on above: Performed By: #### 7 938072, 4724371467, 34133037, 0101321, 9049303, 0867862 ####[facility] (DEFAULT)[address] [place] [address] BMP Standardon 12-15-2023 eGFR AA >60 Invalid Interpretation Code [facility] Comment on above: Order Comment: While on Insulin Drip Performed By: #### 2 119464, [id number], 4653201 ####[facility] (DEFAULT)[address] [place] [address] eGFR Non AA >60 Invalid Interpretation Code [facility] Comment on above: Order Comment: While on Insulin Drip Performed By: #### 2 098863, [id number], 6335531 ####[facility] (DEFAULT)[address] [place] [address] Anion gap [Moles/Vol] 8.7 mmol/L Normal 5.0-19.0 [facility] Comment on above: Order Comment: While on Insulin Drip Performed By: #### 2 995587, [id number], 7558872 ####[facility] (DEFAULT)[address] [place] [address] Calcium [Mass/Vol] 8.0 mg/dL Low 8.9-10.3 [facility] Comment on above: Order Comment: While on Insulin Drip Performed By: #### 2 224166, [id number], 3812341 ####[facility] (DEFAULT)[address] [place] [address] Chloride [Moles/Vol] 106 mmol/L Normal 101-[address] [facility] Comment on above: Order Comment: While on Insulin Drip Performed By: #### 2 622829, [id number], 5795568 ####[facility] (DEFAULT)[address] [place] [address] CO2 [Moles/Vol] 21 mmol/L Normal 21-32 [facility] Comment on above: Order Comment: While on Insulin Drip Performed By: #### 2 216244, 3111984389, 3798120 ####[facility] (DEFAULT)[address] [place] [address] Creatinine [Mass/Vol] 0.58 mg/dL Low 0.60-1.30 [facility] Comment on above: Order Comment: While on Insulin Drip Performed By: #### 2 456912, 4504497910, 4328683 ####[facility] (DEFAULT)[address] [place] [address] Glucose [Mass/Vol] 388.0 mg/dL High 74.0-118.0 [facility] Comment on above: Order Comment: While on Insulin Drip Performed By: #### 2 713584, [id number], 5551201 ####[facility] (DEFAULT)[address] [place] [address] Osmolality 280 mOsm/L Invalid Interpretation Code [facility] Comment on above: Order Comment: While on Insulin Drip Performed By: #### 2 670810, 5641231420, 9844329 ####[facility] (DEFAULT)[address] [place] [address] Potassium [Moles/Vol] 3.7 mmol/L Normal 3.6-5.1 [facility] Comment on above: Order Comment: While on Insulin Drip Performed By: #### 2 646064, [id number], 6556535 ####[facility] (DEFAULT)[address] [place] [address] Sodium [Moles/Vol] 132.0 mmol/L Low 136.0-144.0 [facility] Comment on above: Order Comment: While on Insulin Drip Performed By: #### 2 119119, 4870990726, 1117694 ####[facility] (DEFAULT)[address] [place] [address] Urea nitrogen [Mass/Vol] 12 mg/dL Normal 8-26 [facility] Comment on above: Order Comment: While on Insulin Drip Performed By: #### 2 645567, 6589638398, 3717438 ####[facility] (DEFAULT)[address] [place] [address]57 Urea nitrogen/Creatinine [Mass ratio] 20.6 mg/mg High 4.6-16.2 [facility] Comment on above: Order Comment: While on Insulin Drip Performed By: #### 2 298936, 2962443640, 6493286 ####[facility] (DEFAULT)[address] [place] [address] CBC w/ Auto Diffon Erythrocyte distribution width (RBC) [Ratio] 15.1 % High 11.5-15.0 [facility] Comment on above: Performed By: #### 7 277029, 0856189873, 20300125, 1301914, 4569974, 7782371 ####[facility] (DEFAULT)[address] [place] [address] Hematocrit (Bld) [Volume fraction] 32.3 % Low 33.7-40.4 [facility] Comment on above: Performed By: #### 7 033624, 1419721506, 41137100, 2645459, 2336216, 4863708 ####[facility] (DEFAULT)[address] [place] [address] Hemoglobin (Bld) [Mass/Vol] 10.6 g/dL Low 11.3-15.9 [facility] Comment on above: Performed By: #### 7 053009, 4632865268, 91302905, 4415622, 0127732, 8397853 ####[facility] (DEFAULT)[address] [place] [address] Man Diff? Auto Invalid Interpretation Code [facility] Comment on above: Performed By: #### 7 806579, 2128607578, 43557872, 6635900, 6315622, 9768461 ####[facility] (DEFAULT)[address] [place] [address] MCH (RBC) [Entitic mass] 26 pg Normal 24-34 [facility] Comment on above: Performed By: #### 7 065621, 9278008457, 81003699, 6379732, 4665622, 4864315 ####[facility] (DEFAULT)[address] [place] [address] MCHC (RBC) [Mass/Vol] 33 g/dL Normal 26-37 [facility] Comment on above: Performed By: #### 7 696853, 1930074847, 62812563, 5467798, 6175344, 4303685 ####[facility] (DEFAULT)[address] [place] [address] MCV (RBC) [Entitic vol] 78 fL Low 81-100 [facility] Comment on above: Performed By: #### 7 128158, 1239323561, 95384779, 3087292, 5977769, 5764481 ####[facility] (DEFAULT)[address] [place] [address] Platelet 320 x10 Normal 138-427 [facility] Comment on above: Performed By: #### 7 309429, 5550427422, 49772305, 3841099, 7264302, 4366395 ####[facility] (DEFAULT)[address] [place] [address] Platelet mean volume (Bld) [Entitic vol] 7.2 fL Normal 6.3-10.2 [facility] Comment on above: Performed By: #### 7 431743, 1613943867, 62120572, 1261581, 0122976, 6199237 ####[facility] (DEFAULT)[address] [place] [address] RBC 4.14 x10 Normal 3.70-5.30 [facility] Comment on above: Performed By: #### 7 521256, 7131573738, 99821430, 0365495, 4236920, 9704203 ####[facility] (DEFAULT)[address] [place] [address] WBC 7.4 x10 Normal 3.5-10.5 [facility] Comment on above: Performed By: #### 7 464342, 3522288911, 96301257, 3934345, 1660288, 0938544 ####[facility] (DEFAULT)[address] [place] [address] CMP Standardon 06-13-2023 eGFR Non AA >60 Invalid Interpretation Code [facility] Comment on above: Performed By: #### 7 891533, 3244382723, 44751169, 0798828, 0237303, 5934711 ####[facility] (DEFAULT)[address] [place] [address] 62400 eGFR AA >60 Invalid Interpretation Code [facility] Comment on above: Performed By: #### 7 262548, 7500816109, 10590548, 7872333, 3137256, 9069137 ####[facility] (DEFAULT)[address] [place] [address] Albumin [Mass/Vol] 3.1 g/dL Low 3.5-5.0 [facility] Comment on above: Performed By: #### 7 576209, 3270618969, 34125620, 7238418, 3622956, 9544004 ####[facility] (DEFAULT)[address] [place] [address] Albumin/Globulin [Mass ratio] 1.1 {ratio} Low 1.4-2.6 [facility] Comment on above: Performed By: #### 7 254373, 8176989442, 48531329, 7900885, 8415107, 3932367 ####[facility] (DEFAULT)[address] [place] [address] Alk Phos 59 IU/L Normal 32-91 [facility] Comment on above: Performed By: #### 7 062738, 8347639012, 51655248, 2274785, 8806457, 8279136 ####[facility] (DEFAULT)[address] [place] [address] ALT [Catalytic activity/Vol] 17.0 U/L Normal 14.0-54.0 [facility] Comment on above: Performed By: #### 7 385169, 3479483149, 17071293, 7855960, 3611674, 2980294 ####[facility] (DEFAULT)[address] [place] [address] Anion gap [Moles/Vol] 7.7 mmol/L Normal 5.0-19.0 [facility] Comment on above: Performed By: #### 7 105261, 2381686571, 21214709, 4695321, 4532445, 9912691 ####[facility] (DEFAULT)[address] [place] [address] AST [Catalytic activity/Vol] 15 U/L Normal 15-41 [facility] Comment on above: Performed By: #### 7 495962, 2582666193, [id number], [id number], [id number], [id number] ####[facility] (DEFAULT)[address] [place] [id number] Bili Total 0.4 mg/dL Normal 0.3-1.2 [facility] Comment on above: Performed By: #### 7 [id number], [id number], [id number], [id number], [id number], [id number] ####[facility] (DEFAULT)[address] [place] [address] 67631 Calcium [Mass/Vol] 8.1 mg/dL Low 8.9-10.3 [facility] Comment on above: Performed By: #### 7 [id number], [id number], [id number], [id number], [id number], [id number] ####[facility] (DEFAULT)[address] [place] [address] 74695 Chloride [Moles/Vol] 106 mmol/L Normal 101-[address] [facility] Comment on above: Performed By: #### 7 [id number], [id number], [id number], 7846306, 3849488, 0843453 ####[facility] (DEFAULT)[address] [place] [address] 30491 CO2 [Moles/Vol] 24 mmol/L Normal 21-32 [facility] Comment on above: Performed By: #### 7 870624, [id number], 32661423, 6371253, 8264624, 2326757 ####[facility] (DEFAULT)[address] [place] [address] 18417 Creatinine [Mass/Vol] 0.49 mg/dL Low 0.60-1.30 [facility] Comment on above: Performed By: #### 7 523754, [id number], 61768764, 0493115, 3642463, 6210721 ####[facility] (DEFAULT)[address] [place] [address] 72541 Globulin (S) [Mass/Vol] 2.7 g/dL Normal 1.5-4.3 [facility] Comment on above: Performed By: #### 7 352425, [id number], 05378878, 6093206, 5648575, 4990291 ####[facility] (DEFAULT)[address] [place] [address] Glucose [Mass/Vol] 128.0 mg/dL High 74.0-118.0 [facility] Comment on above: Performed By: #### 7 157744, [id number], 23064964, 8334301, 5659744, 0598582 ####[facility] (DEFAULT)[address] [place] [address] 29780 Osmolality 269 mOsm/L Invalid Interpretation Code [facility] Comment on above: Performed By: #### 7 843761, [id number], 59364754, 5693976, 4498612, 3090146 ####[facility] (DEFAULT)[address] [place] [address] 42571 Potassium [Moles/Vol] 3.7 mmol/L Normal 3.6-5.1 [facility] Comment on above: Performed By: #### 7 163125, [id number], 68332013, 5913534, 9150640, 9091776 ####[facility] (DEFAULT)[address] [place] [address] 49166 Protein [Mass/Vol] 5.8 g/dL Low 6.5-8.1 [facility] Comment on above: Performed By: #### 7 716643, 1245718146, 22345149, 5635677, 8971392, 4205212 ####[facility] (DEFAULT)[address] [place] [address] 93270 Sodium [Moles/Vol] 134.0 mmol/L Low 136.0-144.0 [facility] Comment on above: Performed By: #### 7 253647, [id number], 86601060, 4468653, 4335388, 7606268 ####[facility] (DEFAULT)[address] [place] [address] 69268 Urea nitrogen [Mass/Vol] 11 mg/dL Normal 8-26 [facility] Comment on above: Performed By: #### 7 292508, 1459202881, 49578718, 2961394, 6346023, 1418927 ####[facility] (DEFAULT)[address] [place] [address] 30116 Urea nitrogen/Creatinine [Mass ratio] 22.4 mg/mg High 4.6-16.2 [facility] Comment on above: Performed By: #### 7 255287, [id number], 73975862, 5403659, 8852415, 7185305 ####[facility] (DEFAULT)[address] [place] [address] Case Management Noteon 06-13 Case Management Note [id number]# [facility] 06-13-2023 Consent Forms [id number] [facility] Magnesiumon 06-13-2023 Magnesium [Mass/Vol] 1.87 mg/dL Normal 1.80-2.[address] [facility] Comment on above: Performed By: #### 7 539961, 2902185714, 20247922, 9835334, 3007492, 9948027 ####[facility] (DEFAULT)[address] [place] [address] Magnesium [Mass/Vol] 1.84 mg/dL Normal 1.80-2.[address] [facility] Comment on above: Order Comment: While on Insulin Drip Performed By: #### 2 527748, [id number], 9266358 ####[facility] (DEFAULT)[address] [place] [address] Nutrition Noteon 06-13-2023 Nutrition Note met with [...] in her van; just recently released from [place] - showed me her two ankle bracelets [...] (insulin pump); note current A1c 15.9%patient sees group contract analyst in [place] monthly (when she is able); encouraged patient to call endo's office to make another appt - also to call customer service at [facility] to get another remote so she can use her pump; ? patient to be sent home with insulin/pens for bg management after discharge; discussed that once patient is stable to have [facility] send referral to Alyssa so she can come see me and [place] library director[place]TE for some diabetes education; unsure if patient [...] assist prn. ts Pt left AMA. Normal [facility] POCT Glucose Levelon 06-13- 023 Glucose, POC See Comment Invalid Interpretation Code 74-118 [facility] Comment on above: Result Comment: Ruperto evasn order, remove 1 diane Rodarte in ICU 06/13/2023 08:10:39 EST JW Performed By: #### 4 [id number] ####[facility] (DEFAULT)[address] [place] [address] Glucose [Mass/Vol] 191 mg/dL High 74-118 [facility] Comment on above: Performed By: #### 4 [id number] ####[facility] (DEFAULT)[address] [place] [address] Glucose [Mass/Vol] 129 mg/dL High 74-118 [facility] Comment on above: Performed By: #### 4 [id number] #### [facility] (DEFAULT) [address] [place] [address] Glucose [Mass/Vol] 119 mg/dL High 74-118 [facility] Comment on above: Performed By: #### 4 [id number] #### [facility] (DEFAULT) [address] [place] [address] 55322 Glucose [Mass/Vol] 193 mg/dL High [address] [place] [address] Comment on above: Performed By: #### 4 [id number] ####[facility] (DEFAULT)[address] [place] [address] 14852 Glucose [Mass/Vol] 294 mg/dL High [address] [place] [address] Comment on above: Performed By: #### 4 [id number] ####[facility] (DEFAULT)[address] [place] [address] 35883 Glucose [Mass/Vol] 362 mg/dL High [address] [place] [address] Comment on above: Performed By: #### 4 [id number] #### [facility] (DEFAULT) [address] [place] [address] 35447 Phoson 06-13-2023 Phosphate [Mass/Vol] 2.3 mg/dL Low 2.5-4.[address] [facility] Comment on above: Performed By: #### 7 424151, [id number], 09669965, 4505519, 1994417, 9047290 ####[facility] (DEFAULT)[address] [place] [address] 10224 Phosphate [Mass/Vol] 2.2 mg/dL Low 2.5-4.[address] [facility] Comment on above: Performed By: #### 2 501213, [id number], 9249697 ####[facility] (DEFAULT)[address] [place] [address] 33145 Progress Note - Nurseon 05-30 Progress Note - Nurse Patient left AMA. Patient wanted to leave today. Dr. Payne wanted to keep her til tomorrow. She is out of her medications. [Electronically Signed on: 06/13/2023 10:30 EST] Aster Bernal RN [Verified on: 06/13/2023 10:30 EST] Aster Bernal RN Normal [facility] Progress Note - Nurse Patient called [...] on: 06/13/2023 10:32 EST] Aster Bernal RN Normal [facility] Trigon 06-13-2023 Triglyceride [Mass/Vol] 177.0 mg/dL High 0.0-150.0 [facility] Comment on above: Performed By: #### 7 343254, [id number], 06993682, 6010043, 9582951, 1042910 ####[facility] (DEFAULT)[address] [place] [address] .Auto Diff 1on 06-12-2023 Auto Bremer % 2 % Normal 07-11 [facility] Comment on above: Performed By: #### 5 5837961, [id number] #### [facility] (DEFAULT) [address] [place] [address] Baso Abs# 0.1 x10 Normal 0.0-0.2 [facility] Comment on above: Performed By: #### 5 5714145, [id number] #### [facility] (DEFAULT) [address] [place] [address] Basophils/100 WBC (Bld) 1.1 % Normal 0.2-2.0 [facility] Comment on above: Performed By: #### 5 0919344, [id number] #### [facility] (DEFAULT) [address] [place] [address] 67897 Eos Abs# 0.0 x10 Normal 0.0-0.4 [facility] Comment on above: Performed By: #### 5 6630335, [id number] #### [facility] (DEFAULT) [address] [place] [address] 48896 Eosinophils/100 WBC (Bld) 0.6 % Low 0.9-4.0 [facility] Comment on above: Performed By: #### 5 3545383, [id number] #### [facility] (DEFAULT) [address] [place] [address] 11461 Lymph Abs# 0.9 x10 Low 1.3-2.9 [facility] Comment on above: Performed By: #### 5 6606239, [id number] #### [facility] (DEFAULT) [address] [place] [address] 08064 Lymphocytes/100 WBC (Bld) 14 % Normal 14-48 [facility] Comment on above: Performed By: #### 5 0544599, [id number] #### [facility] (DEFAULT) [address] [place] [address] 13598 Bremer Abs# 0.2 x10 Normal 0.0-0.8 [facility] Comment on above: Performed By: #### 5 8406857, [id number] #### [facility] (DEFAULT) [address] [place] [address] 18410 Neut Abs# 5.6 x10 Normal 1.5-9.2 [facility] Comment on above: Performed By: #### 5 5582208, [id number] #### [facility] (DEFAULT) [address] [place] [address] 46957 Neutrophils/100 WBC (Bld) 82 % Normal 44-88 [facility] Comment on above: Performed By: #### 5 0473761, [id number] #### [facility] (DEFAULT) [address] [place] [address] 83776 Arterial Blood Gas Standardo n 06-12-2023 Base Excess Art -17.3 mmol/L Low -3.3-2.3 [facility] Comment on above: Performed By: #### 5 2610865, [id number] #### [facility] (DEFAULT) [address] [place] [address] Breakpoint Hemo Normal [facility] Comment on above: Performed By: #### 5 9969166, [id number] #### [facility] (DEFAULT) [address] [place] [address] Device Room Air Normal [facility] Comment on above: Performed By: #### 5 9885216, [id number] #### [facility] (DEFAULT) [address] [place] [address] Fio2 Art 21.0 % Normal 21.0-100.0 [facility] Comment on above: Performed By: #### 5 5841768, [id number] #### [facility] (DEFAULT) [address] [place] [address] HCO3 (Bld) [Moles/Vol] 9.4 mmol/L Low 22.0-27.0 [facility] Comment on above: Performed By: #### 5 6617058, [id number] #### [facility] (DEFAULT) [address] [place] [address] Oxygen saturation in Blood 97.8 % Normal 95.0-100.0 [facility] Comment on above: Performed By: #### 5 9126799, [id number] #### [facility] (DEFAULT) [address] [place] [address] pCO2 Art 25 mmHg Low 34-44 [facility] Comment on above: Performed By: #### 5 2960767, [id number] #### [facility] (DEFAULT) [address] [place] [address] pH Art 7.18 Critically abnormal 7.37-7.44 [facility] Comment on above: Result Comment: Resu lts handed to Dr Uribe by on 06/12/2023 @ 1302, RBD Performed By: #### 5 2286558, [id number] #### [facility] (DEFAULT) [address] [place] [address] 65536 pO2 Art 118 mmHg High 75-100 [facility] Comment on above: Performed By: #### 5 2499894, [id number] #### [facility] (DEFAULT) [address] [place] [address] 83594 Puncture Site Right Brachial Normal [facility] Comment on above: Performed By: #### 5 8615490, [id number] #### [facility] (DEFAULT) [address] [place] [address] 42673 Rate: 20 Invalid Interpretation Code [facility] Comment on above: Performed By: #### 5 7068362, [id number] #### [facility] (DEFAULT) [address] [place] [address] Standardon 06-12-2023 eGFR AA >60 Invalid Interpretation Code [facility] Comment on above: Order Comment: While on Insulin Drip Performed By: #### 2 886631, [id number], 2107634 ####[facility] (DEFAULT)[address] [place] [address] 02283 eGFR Non AA >60 Invalid Interpretation Code [facility] Comment on above: Order Comment: While on Insulin Drip Performed By: #### 2 989515, [id number], 4529885 ####[facility] (DEFAULT)[address] [place] [address] 74081 Anion gap [Moles/Vol] 1.6 mmol/L Low 5.0-19.0 [facility] Comment on above: Order Comment: While on Insulin Drip Performed By: #### 2 781122, [id number], 3011601 ####[facility] (DEFAULT)[address] [place] [address] 83838 Calcium [Mass/Vol] 7.6 mg/dL Low 8.9-10.3 [facility] Comment on above: Order Comment: While on Insulin Drip Performed By: #### 2 071438, [id number], 6851720 ####[facility] (DEFAULT)[address] [place] [address] 10384 Chloride [Moles/Vol] 113 mmol/L High 101-[address] [facility] Comment on above: Order Comment: While on Insulin Drip Performed By: #### 2 450713, [id number], 7288169 ####[facility] (DEFAULT)[address] [place] [address] 97756 CO2 [Moles/Vol] 23 mmol/L Normal 21-32 [facility] Comment on above: Order Comment: While on Insulin Drip Performed By: #### 2 053077, 3896861043, 1209307 ####[facility] (DEFAULT)[address] [place] [address] 60338 Creatinine [Mass/Vol] 0.57 mg/dL Low 0.60-1.30 [facility] Comment on above: Order Comment: While on Insulin Drip Performed By: #### 2 621383, 6943554505, 5484977 ####[facility] (DEFAULT)[address] [place] [address] 05200 Glucose [Mass/Vol] 234.0 mg/dL High 74.0-118.0 [facility] Comment on above: Order Comment: While on Insulin Drip Performed By: #### 2 679635, 8474450484, 9709052 ####[facility] (DEFAULT)[address] [place] [address] 70144 Osmolality 275 mOsm/L Invalid Interpretation Code [facility] Comment on above: Order Comment: While on Insulin Drip Performed By: #### 2 257777, [id number], 7265930 ####[facility] (DEFAULT)[address] [place] [address] 61667 Potassium [Moles/Vol] 3.6 mmol/L Normal 3.6-5.1 [facility] Comment on above: Order Comment: While on Insulin Drip Performed By: #### 2 380260, 0977255279, 4545221 ####[facility] (DEFAULT)[address] [place] [address] 96252 Sodium [Moles/Vol] 134.0 mmol/L Low 136.0-144.0 [facility] Comment on above: Order Comment: While on Insulin Drip Performed By: #### 2 729747, 7838444187, 8893205 ####[facility] (DEFAULT)[address] [place] [address] 50268 Urea nitrogen [Mass/Vol] 11 mg/dL Normal 8-26 [facility] Comment on above: Order Comment: While on Insulin Drip Performed By: #### 2 167636, 5850445923, 6896565 ####[facility] (DEFAULT)[address] [place] [address] 66205 Urea nitrogen/Creatinine [Mass ratio] 19.2 mg/mg High 4.6-16.2 [facility] Comment on above: Order Comment: While on Insulin Drip Performed By: #### 2 509948, 7239388037, 2665460 ####[facility] (DEFAULT)[address] [place] [address] 83077 eGFR Non AA >60 Invalid Interpretation Code [facility] Comment on above: Order Comment: While on Insulin Drip Performed By: #### 1 [id number], 0308203, 2297089, ####[facility] (DEFAULT)[address] [place] [address] 63267 eGFR AA >60 Invalid Interpretation Code [facility] Comment on above: Order Comment: While on Insulin Drip Performed By: #### 1 [id number], 6059232, 8607772, ####[facility] (DEFAULT)[address] [place] [address] 69708 Anion gap [Moles/Vol] 7.9 mmol/L Normal 5.0-19.0 [facility] Comment on above: Order Comment: While on Insulin Drip Performed By: #### 1 [id number], 3265333, 9019840, ####[facility] (DEFAULT)[address] [place] [address] 90794 Calcium [Mass/Vol] 7.7 mg/dL Low 8.9-10.3 [facility] Comment on above: Order Comment: While on Insulin Drip Performed By: #### 1 [id number], 2996959, 7951496, ####[facility] (DEFAULT)[address] [place] [address] 46920 Chloride [Moles/Vol] 110 mmol/L Normal 101-[address] [facility] Comment on above: Order Comment: While on Insulin Drip Performed By: #### 1 [id number], 5106699, 9108160, ####[facility] (DEFAULT)[address] [place] [address] 18477 CO2 [Moles/Vol] 19 mmol/L Low 21-32 [facility] Comment on above: Order Comment: While on Insulin Drip Performed By: #### 1 [id number], 2317914, 1239028, ####[facility] (DEFAULT)[address] [place] [address] 72678 Creatinine [Mass/Vol] 0.90 mg/dL Normal 0.60-1.30 [facility] Comment on above: Order Comment: While on Insulin Drip Performed By: #### 1 [id number], 0196414, 7362575, ####[facility] (DEFAULT)[address] [place] [address] 53846 Glucose [Mass/Vol] 361.0 mg/dL High 74.0-118.0 [facility] Comment on above: Order Comment: While on Insulin Drip Performed By: #### 1 [id number], 0923816, 2296222, ####[facility] (DEFAULT)[address] [place] [address] 40942 Osmolality 280 mOsm/L Invalid Interpretation Code [facility] Comment on above: Order Comment: While on Insulin Drip Performed By: #### 1 [id number], 8759342, 6071466, ####[facility] (DEFAULT)[address] [place] [address] 40806 Potassium [Moles/Vol] 3.9 mmol/L Normal 3.6-5.1 [facility] Comment on above: Order Comment: While on Insulin Drip Performed By: #### 1 [id number], 0625636, 6752651, ####[facility] (DEFAULT)[address] [place] [address] 07983 Sodium [Moles/Vol] 133.0 mmol/L Low 136.0-144.0 [facility] Comment on above: Order Comment: While on Insulin Drip Performed By: #### 1 [id number], 9749651, 9789870, 7553575384 ####[facility] (DEFAULT)[address] [place] [address] 23016 Urea nitrogen [Mass/Vol] 11 mg/dL Normal 8-26 [facility] Comment on above: Order Comment: While on Insulin Drip Performed By: #### 1 157782274, 7607865, 0904710, [id number] ####[facility] (DEFAULT)[address] [place] [address] 27198 Urea nitrogen/Creatinine [Mass ratio] 12.2 mg/mg Normal 4.6-16.2 [facility] Comment on above: Order Comment: While on Insulin Drip Performed By: #### 1 282191907, 7319124, 7725720, 7722121883 ####[facility] (DEFAULT)[address] [place] [address] 67576 Breakpoint Chem Normal [facility] Comment on above: Performed By: #### 4 [id number] #### [facility] (DEFAULT) [address] [place] [address] 28372 eGFR Non AA >60 Invalid Interpretation Code [facility] Comment on above: Performed By: #### 4 [id number] #### [facility] (DEFAULT) [address] [place] [address] 50667 eGFR AA >60 Invalid Interpretation Code [facility] Comment on above: Performed By: #### 4 [id number] #### [facility] (DEFAULT) [address] [place] [address] 32008 Anion gap [Moles/Vol] 21.7 mmol/L High 5.0-19.0 [facility] Comment on above: Performed By: #### 4 [id number] #### [facility] (DEFAULT) [address] [place] [address] 52375 Osmolality 286 mOsm/L Invalid Interpretation Code [facility] Comment on above: Performed By: #### 4 [id number] #### [facility] (DEFAULT) [address] [place] [address] 48086 Urea nitrogen/Creatinine [Mass ratio] 15.0 mg/mg Normal 4.6-16.2 [facility] Comment on above: Performed By: #### 4 [id number] #### [facility] (DEFAULT) [address] [place] [address] 99438 Calcium [Mass/Vol] 8.6 mg/dL Low 8.9-10.3 [facility] Comment on above: Performed By: #### 4 [id number] #### [facility] (DEFAULT) [address] [place] [address] 96091 Chloride [Moles/Vol] 96 mmol/L Low 101-[address] [facility] Comment on above: Performed By: #### 4 [id number] #### [facility] (DEFAULT) [address] [place] [address] 36143 CO2 [Moles/Vol] 12 mmol/L Low 21-32 [facility] Comment on above: Performed By: #### 4 [id number] #### [facility] (DEFAULT) [address] [place] [address] 57223 Creatinine [Mass/Vol] 0.93 mg/dL Normal 0.60-1.30 [facility] Comment on above: Performed By: #### 4 [id number] #### [facility] (DEFAULT) [address] [place] [address] 43462 Glucose [Mass/Vol] 708.0 mg/dL Critically abnormal 74.0-118.0 [facility] Comment on above: Result Comment: Crit ical result GLU 708 mg/dL called to and read back by jony sykes rn at 12-Jun-2023 13:52 by Frank. Performed By: #### 4 [id number] #### [facility] (DEFAULT) [address] [place] [address] 45324 Potassium [Moles/Vol] 4.7 mmol/L Normal 3.6-5.1 [facility] Comment on above: Performed By: #### 4 [id number] #### [facility] (DEFAULT) [address] [place] [address] 79976 Sodium [Moles/Vol] 125.0 mmol/L Low 136.0-144.0 [facility] Comment on above: Performed By: #### 4 [id number] #### [facility] (DEFAULT) [address] [place] [address] Urea nitrogen [Mass/Vol] 14 mg/dL Normal 8-26 [facility] Comment on above: Performed By: #### 4 [id number] #### [facility] (DEFAULT) [address] [place] [address] CBC w/ Auto Diffon Erythrocyte distribution width (RBC) [Ratio] 15.0 % Normal 11.5-15.0 [facility] Comment on above: Performed By: #### 5 [id number], [id number] #### [facility] (DEFAULT) [address] [place] [address] Hematocrit (Bld) [Volume fraction] 39.0 % Normal 33.7-40.4 [facility] Comment on above: Performed By: #### 5 3982597, [id number] #### [facility] (DEFAULT) [address] [place] [address] Hemoglobin (Bld) [Mass/Vol] 12.3 g/dL Normal 11.3-15.9 [facility] Comment on above: Performed By: #### 5 2515309, [id number] #### [facility] (DEFAULT) [address] [place] [address] Man Diff? Auto Invalid Interpretation Code [facility] Comment on above: Performed By: #### 5 [id number], [id number] #### [facility] (DEFAULT) [address] [place] [address] MCH (RBC) [Entitic mass] 26 pg Normal 24-34 [facility] Comment on above: Performed By: #### 5 1396401, [id number] #### [facility] (DEFAULT) [address] [place] [address] 42843 MCHC (RBC) [Mass/Vol] 32 g/dL Normal 26-37 [facility] Comment on above: Performed By: #### 5 5132434, [id number] #### [facility] (DEFAULT) [address] [place] [address] 06546 MCV (RBC) [Entitic vol] 82 fL Normal 81-100 [facility] Comment on above: Performed By: #### 5 2374934, [id number] #### [facility] (DEFAULT) [address] [place] [address] 38346 Platelet 393 x10 Normal 138-427 [facility] Comment on above: Performed By: #### 5 3617496, [id number] #### [facility] (DEFAULT) [address] [place] [address] 01162 Platelet mean volume (Bld) [Entitic vol] 7.9 fL Normal 6.3-10.2 [facility] Comment on above: Performed By: #### 5 7708462, [id number] #### [facility] (DEFAULT) [address] [place] [address] RBC 4.73 x10 Normal 3.70-5.30 [facility] Comment on above: Performed By: #### 5 1130492, [id number] #### [facility] (DEFAULT) [address] [place] [address] WBC 6.9 x10 Normal 3.5-10.5 [facility] Comment on above: Performed By: #### 5 3553149, [id number] #### [facility] (DEFAULT) [address] [place] [address] ED Clinical Summaryon 2022 ED Clinical Summary [facility] - Emergency Department [address] [place], [place] [id number] ED Clinical Summary PERSON INFORMATION Name: DOUGLAS CORDOVA Age: 28 Years Sex: FEMALE : 1995 MRN: Acct#: Visit Reason: Increased blood sugar; Vomiting; DKA Arrival: 06/12/2023 12:23:19 Discharge: LOS: 000 03:18 Check In: 06/12/2023 12:23:19 Checkout:06/12/2023 15:41:26 Address: [address] [address] PCP: ARCADIO IGLESIAS PROVIDER INFORMATION Provider Role Assigned Unassigned Warner Rutledge [employer]RE [employer] ENGRAVER Nurse 06/12/2023 12:34:17 Jaun Uribe MD ED [...] iver verbalizes understanding of instructions given Comment: [facility] ED Patient Education Noteon 06-12-2023 ED Patient Education Note Education Materials [facility] ED Patient Summaryon 023 ED Patient Summary [facility] - Emergency Department [address] [place] [address] PATIENT DISCHARGE INSTRUCTIONS Patient Information Name: DOUGLAS CORDOVA Age: 28 Years Date of : 1995 Reason For Visit: Increased blood sugar; Vomiting; DKA Arrival Time: 06/12/2023 12:23:19 Primary Care Physician: ARCADIO IGLESIAS Attending Physician: Maxi Payne MD Comment: Visit Diagnosis: Diagnoses This Visit Diabetic ketoacidosis (E11.10) Increased blood sugar ([id number]) Vomiting ([id number]) The Pharmacy at [facility] is open Friday through Friday from [...] alcohol and/or drug addiction problems; contact the [facility] 20/01 Crisis Hotline -Text 9KOYO lz [phone]. If you received any narcotics, sedation, or [...] and treatment you received today in the [facility] Emergency Department were for an urgent problem and are not intended as complete care. It is important for you to follow up with a doctor, nurse practitioner, or physician?s email marketing assistant for ongoing care. If your symptoms [...] so we can reach you if necessary. [facility] Emergency Department has provided you with a complete list of medications post discharge. Please inform your unarmed security officer/provider of your visit and for further instruction [...] a day. Durable Medical Equipment for Prescription (AlgonomicsIPSOL REPUBLIC DASH PODS (GEN 4) 5PK) change q [...] NO Flui (more content not included)... Normal [facility] Extra Blueon 06-12-2023 Tube Collected Yes Invalid Interpretation Code [facility] Comment on above: Performed By: #### 5 [id number], [id number] #### [facility] (DEFAULT) [address] [place] [address] 59064 Extra Greenon 06-12-2023 Tube Collected Yes Invalid Interpretation Code [facility] Comment on above: Performed By: #### 1 [id number], [id number] ####[facility] (DEFAULT)[address] [place] [address] 41374 Hepatic Function Panel Stand akhil 06-12-2023 Albumin/Globulin [Mass ratio] 1.2 {ratio} Low 1.4-2.6 [facility] Comment on above: Performed By: #### 4 [id number] #### [facility] (DEFAULT) [address] [place] [address] Bili Indirect 2.1 mg/dL High 0.2-0.8 [facility] Comment on above: Performed By: #### 4 [id number] #### [facility] (DEFAULT) [address] [place] [address] 26240 Globulin (S) [Mass/Vol] 3.6 g/dL Normal 1.5-4.3 [facility] Comment on above: Performed By: #### 4 [id number] #### [facility] (DEFAULT) [address] [place] [address] 46474 Albumin [Mass/Vol] 4.6 g/dL Normal 3.5-5.0 [facility] Comment on above: Performed By: #### 4 [id number] #### [facility] (DEFAULT) [address] [place] [address] 50803 Alk Phos 90 IU/L Normal 32-91 [facility] Comment on above: Performed By: #### 4 [id number] #### [facility] (DEFAULT) [address] [place] [address] 42740 ALT [Catalytic activity/Vol] 27.0 U/L Normal 14.0-54.0 [facility] Comment on above: Performed By: #### 4 [id number] #### [facility] (DEFAULT) [address] [place] [address] 80741 AST [Catalytic activity/Vol] 17 U/L Normal 15-41 [facility] Comment on above: Performed By: #### 4 [id number] #### [facility] (DEFAULT) [address] [place] [address] 72366 Bili Direct 0.10 mg/dL Normal 0.10-0.50 [facility] Comment on above: Performed By: #### 4 [id number] #### [facility] (DEFAULT) [address] [place] [address] 93493 Bili Total 2.2 mg/dL High 0.3-1.2 [facility] Comment on above: Performed By: #### 4 [id number] #### [facility] (DEFAULT) [address] [place] [address] 57615 Protein [Mass/Vol] 8.2 g/dL High 6.5-8.1 [facility] Comment on above: Performed By: #### 4 [id number] #### [facility] (DEFAULT) [address] [place] [address] 78441 HgbA1c Standardon 06-12-2023 .Hb 13.4 Invalid Interpretation Code [facility] Comment on above: Performed By: #### 1 [id number] ####[facility] (DEFAULT)[address] [place] [address] 88810 .Hgb A1c 2.01 g/dL Invalid Interpretation Code [facility] Comment on above: Performed By: #### 1 [id number] ####[facility] (DEFAULT)[address] [place] [address] 76062 Glucose [Mass/Vol] 407 mg/dL Invalid Interpretation Code [facility] Comment on above: Performed By: #### 1 [id number] ####[facility] (DEFAULT)[address] [place] [address] 45335 HbA1c (Bld) [Mass fraction] 15.8 % High 4.6-6.2 [facility] Comment on above: Performed By: #### 1 [id number] ####[facility] (DEFAULT)[address] [place] [address] 95044 Ketone Serumon 06-12-2023 Ketone Serum Negative Normal Negative [facility] Comment on above: Performed By: #### 6 [id number] #### [facility] (DEFAULT) [address] [place] [address] 78087 Lactic Acidon 06-12-2023 Lactic Acid 9.7 mg/dL Normal 4.5-19.8 [facility] Comment on above: Performed By: #### 2 [id number] ####[facility] (DEFAULT)[address] [place] [address] 31461 Lipid Panel Standard, Non-Fa stingon 06-12-2023 Cholesterol [Mass/Vol] 285.0 mg/dL High 66.0-200.0 [facility] Comment on above: Performed By: #### 4 [id number] #### [facility] (DEFAULT) [address] [place] [address] 71297 Cholesterol in HDL [Mass/Vol] 43 mg/dL Normal 40-71 [facility] Comment on above: Performed By: #### 4 [id number] #### [facility] (DEFAULT) [address] [place] [address] 74191 Cholesterol.total/Choles terol in HDL [Mass ratio] 6.6 {ratio} High 0.0-4.5 [facility] Comment on above: Performed By: #### 4 [id number] #### [facility] (DEFAULT) [address] [place] [address] 93720 LDL See Comment Invalid Interpretation Code 1-100 [facility] Comment on above: Performed By: #### 4 [id number] #### [facility] (DEFAULT) [address] [place] [address] 33127 Triglyceride [Mass/Vol] 855.0 mg/dL High 0.0-150.0 [facility] Comment on above: Performed By: #### 4 [id number] #### [facility] (DEFAULT) [address] [place] [address] 34221 VLDL. See Comment2 Invalid Interpretation Code 5-40 [facility] Comment on above: Performed By: #### 4 [id number] #### [facility] (DEFAULT) [address] [place] [address] 23817 Magnesiumon 06-12-2023 Magnesium [Mass/Vol] 2.02 mg/dL Normal 1.80-2.[address] [facility] Comment on above: Order Comment: While on Insulin Drip Performed By: #### 2 [id number], [id number], [id number] ####[facility] (DEFAULT)[address] [place] [address] 16272 Magnesium [Mass/Vol] 1.91 mg/dL Normal 1.80-2.[address] [facility] Comment on above: Order Comment: While on Insulin Drip Performed By: #### 1 [id number], [id number], [id number] ####[facility] (DEFAULT)[address] [place] [address] 37425 POCT Glucose Levelon 023 Glucose [Mass/Vol] 234 mg/dL High [address] [place] [address] Comment on above: Performed By: #### 4 [id number] ####[facility] (DEFAULT)[address] [place] [address] 38638 Glucose [Mass/Vol] 185 mg/dL High [address] [place] [address] Comment on above: Performed By: #### 4 [id number] ####[facility] (DEFAULT)[address] [place] [address] 41013 Glucose [Mass/Vol] 165 mg/dL High [address] [place] [address] Comment on above: Performed By: #### 4 [id number] #### [facility] (DEFAULT) [address] [place] [address] 58536 Glucose [Mass/Vol] 216 mg/dL High [address] [place] [address] Comment on above: Performed By: #### 4 [id number] #### [facility] (DEFAULT) [address] [place] [address] 99485 Glucose [Mass/Vol] 250 mg/dL High [address] [place] [address] Comment on above: Performed By: #### 4 [id number] #### [facility] (DEFAULT) [address] [place] [address] 45729 Glucose [Mass/Vol] 349 mg/dL High [address] [place] [address] Comment on above: Performed By: #### 4 [id number] ####[facility] (DEFAULT)[address] [place] [address] Glucose [Mass/Vol] 447 mg/dL Critically abnormal [address] [place] [address] Comment on above: Performed By: #### 4 [id number] ####[facility] (DEFAULT)[address] [place] [address] Glucose [Mass/Vol] 520 mg/dL Critically abnormal [address] [place] [address] Comment on above: Performed By: #### 4 [id number] ####[facility] (DEFAULT)[address] [place] [address] 06175 Glucose, POC >600 Critically abnormal [address] [place] [address] Comment on above: Performed By: #### 4 [id number] #### [facility] (DEFAULT) [address] [place] [address] Pharmacy Noteon 06-12-2023 Pharmacy Note The following medications(s) has been reviewed for renal dose adjustment per P &T protocol based on the patient's current creatinine clearance: Medication: Enoxaparin 40mg subq daily Estimated CrCl: 86.6 ml/min _ Action: No change required Changes Made: [Electronically Signed on: 06/12/2023 15:41 EST] Emmanuel Hendrix [Verified on: 06/12/2023 15:41 EST] Emmanuel Hendrix Normal [facility] Phoson 06-12-2023 Phosphate [Mass/Vol] 2.5 mg/dL Normal 2.5-4.[address] [facility] Comment on above: Performed By: #### 2 [id number], [id number], [id number] ####[facility] (DEFAULT)[address] [place] [address] 86264 Phosphate [Mass/Vol] 2.6 mg/dL Normal 2.5-4.[address] [facility] Comment on above: Performed By: #### 1 [id number], [id number], [id number], [id number] ####[facility] (DEFAULT)[address] [place] [address] Phosphate [Mass/Vol] 4.1 mg/dL Normal 2.5-4.[address] [facility] Comment on above: Order Comment: add o n Performed By: #### 2 [id number] ####[facility] (DEFAULT)[address] [place] [address] Test Urine 1on U Preg Negative Normal [facility] Comment on above: Performed By: #### 3 [id number] ####[facility] (DEFAULT)[address] [place] [address] U Preg Internal Control Pass Normal [facility] Comment on above: Performed By: #### 3 [id number] ####[facility] (DEFAULT)[address] [place] [address] 78833 Progress Note - Nurseon 05-30 Progress Note - Nurse Patient states thea [...] on: 06/13/2023 06:55 EST] Zenaida Yarbrough RN [facility] Progress Note - Nurse Dr Payne notifi ed about pt Labs values and asked about currently LR infusion, if he would like to change fluids per the DKA protocol. gave order to keep the current LR infusion. No additional orders given at this time. [Electronically Signed on: 06/12/2023 20:04 EST] Michelle Gallegos RN [Verified on: 06/12/2023 20:04 EST] Michelle Gallegos RN [facility] Rapid HIV.on 06-12-2023 HIV. Negative Normal Negative [facility] Comment on above: Performed By: #### 5 [id number], [id number] #### [facility] (DEFAULT) [address] [place] [address] Internal Control Pass [facility] Comment on above: Performed By: #### 5 [id number], [id number] #### [facility] (DEFAULT) [address] [place] [address] 71417 TnI HSon 06-12-2023 Troponin I High Sensitivity 87.9 pg/mL Critically abnormal <=15.0 [facility] Comment on above: Result Comment: Crit ical result TNIHS 87.9 pg/mL called to and read back by Elza Gallegos RN at 12-Jun-2023 17:18 by PREET. Performed By: #### 5 [id number] ####[facility] (DEFAULT)[address] [place] [address] Troponin I High Sensitivity 109.0 pg/mL Critically abnormal <=15.0 [facility] Comment on above: Result Comment: Crit ical result TNIHS 109.0 pg/mL called to and read back by heath sykes rn at 12-Jun-2023 13:53 by Frank. Performed By: #### 4 [id number] #### [facility] (DEFAULT) [address] [place] [address] 39185 Triage Panel 12on 06-12-2023 Triage Internal Control Pass Normal [facility] Comment on above: Performed By: #### 1 [id number], [id number] ####[facility] (DEFAULT)[address] [place] [address] 43037 U Amph Scr Negative [facility] Comment on above: Performed By: #### 1 [id number], [id number] ####[facility] (DEFAULT)[address] [place] [address] 48524 U Landy Scr Negative [facility] Comment on above: Performed By: #### 1 [id number], [id number] ####[facility] (DEFAULT)[address] [place] [address] 49864 U Benzodia Scr Negative [facility] Comment on above: Performed By: #### 1 [id number], [id number] ####[facility] (DEFAULT)[address] [place] [address] 38676 U Cannab Scrn Negative [facility] Comment on above: Performed By: #### 1 [id number], [id number] ####[facility] (DEFAULT)[address] [place] [address] 21377 U Cocaine Scr Negative [facility] Comment on above: Performed By: #### 1 [id number], [id number] ####[facility] (DEFAULT)[address] [place] [address] 96085 U Methadone Scr Negative [facility] Comment on above: Performed By: #### 1 [id number], [id number] ####[facility] (DEFAULT)[address] [place] [address] 51817 U Methamp Scrn Negative [facility] Comment on above: Performed By: #### 1 [id number], [id number] ####[facility] (DEFAULT)[address] [place] [address] 56509 U Opiate Scr Negative [facility] Comment on above: Performed By: #### 1 [id number], [id number] ####[facility] (DEFAULT)[address] [place] [address] U Oxycod Scr Negative [facility] Comment on above: Performed By: #### 1 [id number], [id number] ####[facility] (DEFAULT)[address] [place] [address] U Phencyclidine Scr Negative [facility] Comment on above: Performed By: #### 1 [id number], [id number] ####[facility] (DEFAULT)[address] [place] [address] U Tricyclic Antidepress Scr Negative [facility] Comment on above: Result Comment: [...] PPX Propoxyphene (Norpropoxyphene): 300 ng/mL THC Cannabinoids (99-net-3-carboxy- -THC): 50 ng/mL TCA Tricyclic-Antidepressants (Desipramine): 300 ng/mL Performed By: #### 1 [id number], [id number] ####[facility] (DEFAULT)[address] [place] [address] 67937 UA Standardon 06-12-2023 Breakpoint UA [facility] Comment on above: Performed By: #### 1 [id number], [id number] ####[facility] (DEFAULT)[address] [place] [address] 08137 Color (U) Yellow Normal [facility] Comment on above: Performed By: #### 1 [id number], [id number] ####[facility] (DEFAULT)[address] [place] [address] 64382 Glucose (U) [Mass/Vol] mg/dL Normal [facility] Comment on above: Performed By: #### 1 [id number], [id number] ####[facility] (DEFAULT)[address] [place] [address] 67235 Ketones Ql (U) >=80 Normal [facility] Comment on above: Performed By: #### 1 [id number], [id number] ####[facility] (DEFAULT)[address] [place] [address] 32515 UA Bilirubin Negative Normal [facility] Comment on above: Performed By: #### 1 [id number], [id number] ####[facility] (DEFAULT)[address] [place] [address] 22453 UA Blood Negative Normal [facility] Comment on above: Performed By: #### 1 [id number], [id number] ####[facility] (DEFAULT)[address] [place] [address] 19040 UA Clarity CLEAR Normal CLEAR [facility] Comment on above: Performed By: #### 1 [id number], [id number] ####[facility] (DEFAULT)[address] [place] [address] 00474 UA Leuk Est Negative Normal NEGATIVE [facility] Comment on above: Performed By: #### 1 [id number], [id number] ####[facility] (DEFAULT)[address] [place] [address] 65649 UA Nitrite Negative Normal NEGATIVE [facility] Comment on above: Performed By: #### 1 [id number], [id number] ####[facility] (DEFAULT)[address] [place] [address] 91188 UA pH 5.5 Normal 5-8 [facility] Comment on above: Performed By: #### 1 [id number], [id number] ####[facility] (DEFAULT)[address] [place] [address] 37371 UA Protein Negative Normal NEGATIVE [facility] Comment on above: Performed By: #### 1 [id number], [id number] ####[facility] (DEFAULT)[address] [place] [address] 22071 UA Spec Grav 1.020 Normal 1.001-1.035 [facility] Comment on above: Performed By: #### 1 [id number], [id number] ####[facility] (DEFAULT)[address] [place] [address] 98291 UA Urobilinogen 0.2 mg/dL Normal 0.2-1.0 [facility] Comment on above: Performed By: #### 1 [id number], [id number] ####[facility] (DEFAULT)[address] [place] [address] 87041 Urine Source Clean Catch Normal [facility] Comment on above: Performed By: #### 1 [id number], [id number] ####[facility] (DEFAULT)[address] [place] [address] 19814 Venous pHon 06-12-2023 pH Denis 7.37 Normal 7.37-7.44 [facility] Comment on above: Performed By: #### 4 [id number] #### [facility] (DEFAULT) [address] [place] [address] 45164 XR Chest 1 View Frontalon XR Chest 1 View Frontal CLINICAL HISTORY : Chest pain. TECHNIQUE: One view of the chest COMPARISON: 03/17/2023. RESULT: No focal consolidation. No pleural effusion. No pneumothorax. Normal cardiomediastinal silhouette. No acute osseous findings. IMPRESSION: No acute radiographic abnormality. Final Signed (Electronic Signature): Benton Minor MD 06/12/23 1:52 pm Technologist: Corinna DEAL [facility] Coding Summaryon 06-09-2023 Coding Summary HTMLBase 64 MrxvdwzsTHd2dEa+PGhl YWQ+UG9IXDUmQ47qkAWv oV1vM1YSPIbZSnavIDMG PSbBNnSdaoRrUL7hoYCu ZXJu IC8+MF6hSOGkZlrewUXw j1W3fWV6I33pip9sRPfq eAQ2HSYgZtRiebqls7jq uQy6KYckBybuUhKp TULpgZ47IPK4vJ13Kd90 rUSxzJKdb3xfpDq1HeEf RQTeINO0bWyuXAmth0Dg NFNyJ03kyOXjz1K0 IGNvbGxhcHNlOyBlbXB0 dM4zBFhirsxvc0mwzyrb Qwx4cz78bUUmb1G6bOX1 K1ZvwfO1VEXgxZJj UybbjDVIyH5udaumm9vg xvxiGtLaWQDeQSj8XFl0 EJRciTrjXiAxNU91RGO3 LQCtniXvY2OtQYAc yKvbHhH8w2Y1Ll4JD0HX OpenY3ENPXCDAKjbjCW+ NK91kd61P7OhBavbPep4 DYXiDSY5jPA8aU5f BIKmGLebr9X8cIO7C9Ef tyCrhp0ew4iuOBWeJNsu T14mqWOez9V5POJttFU3 QMImtUruVfLqpG00 Oyc+XDVcvTrxr7AqRizk w2cpp1wkiEu4HbtkYJNl ewSvfAuvQMS8u6CfUz2r SQSkhOT1xBX3bK0f GjBnOaN9WJntI726ApEa rVXkEyhsZ91aH9MzqJA+ PLWfRbp0SBKwjFuvPM7b O8RmGEVmkamuqFVi vYsgOR9eMQRmdyomXOJd yI7xPKLxS1f1AgNyNfY0 CKvsW8JvJVIvpgyiWu47 bW8jAjAeEwG2VIhw H9OdztF9IOLkySTlCZyc VAV3M57fy5E8QDQvTTJv BOD2uFZ5kE1tmJgvlpud bGVmdDsgdmVydGlj PXozGHxjK409XXQtoWcr PkNvZGluZyBEYXRlOiAg MTIvMTEvMjAyMzwvdGQ+ ZBSiMYC1yDeoONHq cVMeJQpeWn2zjZzreKcr XA2pWFLufiozPDYmmB1l TSAviLWjsRqhBE9rCIBo mhksf585MoCgESR0 SVIwmCHoV6AgqZ3cVmLo KNQjCQFjN6ImiMJkCLoz C040BJnsLxE7DQAdwhIk J4IuYLOtcPutQsT6 q4S7Jg0Mp7ZodkxjL6Zk qIBnSlUfAtgmYEc2M7Cz PjwvdHI+EI87PJFuTC18 EDn3YJS2rFsfQFty OGZgW4SwnA5oBnHvVNCu ZGRkOyc+PHRhYmxlIHdp ZHRoPScxMDAlJyBzdHls VG6vRb5wFDJzOTIa jKgwcGFrXbAaf7vwXONd ZHpiBF9pyZoaL7MmuYS1 LRXdm5x0Fv53G47lJ6Lu dXA+JVKqzSK3nYU7 mM2hCkDlCgM7ZMirZ632 OyYrbFSmJfdhe0eom3nq gHo5FlU2ZZDobcRamGza SVQ9w9MxZh95C06f IHdpZHRoPSIxNSUiIHZh pUsuvl7zdD4wUp3+PGNv bCM8sMA4fK3pVmRbYyI5 VFhiM699DaEuoZEn Egvxk4mrj4jofJa7WnMa XNJlmsAzcSyzUTB1i9Kw Xz95E3RwfLxhe5AmPqj9 gg45uLFyn1L4gSH4 P6OvGYQbvibxuCCyhThu EN4gUMZzvnefPAVqoN2i BJLvW0q5IcKhMaS2GDgg T2KoweF1GZFryUEq ITIldEZEhM1jxnxto0jw bybdCwEiFLYoACb3TJn4 PCMkgHdoDeFcOVC7CqI9 VMW4sVCgaX4tbZsn aqlyuO3pZfv+LFZ1yATe rVMTGL2vKafnqPL+PHRk NOG3oJnaBGziAOZnlC2e ZRWvW3f7RiAvNxV1 ZDkiI8GkbnH6UIKxoIQz YFLflJXBiT2tjdyvw3si dvhuRyFoQISwOAc6TBr6 LWFsaWduOiBsZWZ0 NoA2ZIQ0mDFbmM9uoUyk vwojfQ8hLhi+QmlydGgg SBO9WIz5P5WyHzr2OXJa hQeyMI0rhWJaWYcv Ya6axSgouUrwAC1rRVMk xzgzg087LiEqv9ajMNTl qZQfLMptZUZ5V68ei7U4 BEDnDNLeJOO9tNJ7 mF2pvYfnvetkoZWyxJky ugHiqNqgSSqbQYgiW882 GNGwjExkSlPiWBk0T2Lv Svl3SERvmOxrSY3x xFEmQCviFe2tnNktpBkh LE4vAYSpnsyuu449PoAb d8vaKLYrxKXyAWpvLAN5 F10dc7D4ECQwPEZk ZSB0wUB7cW1jbNkxfonv bGVmdDsgdmVydGljYWwt PNaeF972VZAxiNvdTiJl zQa3D9ZeTat0PCGo pPxqAB5ifIRzLNvpPi8b tYewmKfxTH6dTZCigrxi u390VkJro1qjTKBcrPXv PFxcKEJ8C10ax2W5 KWWeJSIsQNA3eEN6jB2l bGlnbjogbGVmdDsgdmVy uEjjMYdiHAhdQ625RCFt cDsnPlBhdGllbnQg BLdhTAv0U3JbBnvxjOE+ ZU49MCKwUA04rUGdyKTz k8hmvXt2AwAfNQCkNBT7 lKawMTgvo4RmMRAl V28dpYBgz0Q7RBEjcUdu gOSoFbGnyJQ7wY9uSZlw vmahd7gqiyyoOwsvz1ow pr31oH41S35dDRlq ZHRoPSIzMCUiIHZhbGln zf2edK5uBh1+PGNvbCB3 sCI6bN8dGZNmTyM0ACee J647LkJooMDaXnaq v0xak3eurEt0ZjK8ESNi cpNypYsvBGG9i5NqIl85 O38gODgyTGOkPUGxOUTi YZZupXbzil4ndW6h Ii8+YAOooMF2bZC7bZ0r CmEwVbU2XJmvW350HrMm hBAbPxdcW64sR9IhtTI+ GFKiSuu4TLCgiPnv NI0dwGWbXQznAa3xSBB3 FeQtFpAcFClnK7PaEKXd kfsbfzzaiVF9KKKlCFSm vZ61Re9liCggIBFf xXFAsY5dqqkyo0witzsy PdCrZIVmMLh6SHa3BPYx dNkkYzFmJWB1FrN3RMA5 iVNexH4lhGjadpbf lU5jC5VfWSZhjgeoEl04 xB1iVcGpDfA7PZupIdu+ NH0RGLBZNFOOMKcGYKFU WIENXRF3A4TjCcz5 VHQovDihGG6tpOBkFKkd Pd7wmXueaDxlHH5qOQQy vyquCCFovG1zGJBuwRLw aJtvFB4fFQYzyjup v425OhYnQJF5MJIbsQRj J2ExqP0bQcEpGRQbZTJj C6SbzLJgYLsnZ548RYrf KsN1NVXaidYwZ2Yk FQBrwZczLzC1f5S4Xi0p Qx7bPU9dNGcbEK68NV34 fGPtl7P8fAO9E9FgFJCy rethyperbGB6MSGt JRVrgX46vGZyGYotMm2s d7L9j736XZEjODVblK97 Lb0bnWsbTAZdmXKTbG6s bbybi4clwipgUdHz YCHmZWi0DAt4UAAjvCya CxQaNWW8DyM4GVG3gBIo mB9mtVuhziabfB5xHmi+ DtSoYKEudzS0G5Ip Iau9BNFwmIjtIH6hpVYz YVqpOq4rqUlfzQgwEJ7v NMGdbarvNKJipG9yIMGp dVFusUpoQT9yTFUn gzmff806WaApVIX9PHLa pQTmF5JbcE4kHvDuXOBg SVNzK1PeuPNrVHbhB201 VOtvBhQ0ZPHyisWk U9KeJXSpuNxqBiF5a7A4 Uf1DDX7ICPM8P3GwKjy6 IFDisIngKI7svJSkGTfe Jd5tyBgipFuvNQ5s DGEmmaybVSJtnC3jRQAl oUWsxGleIV4qZYMdfvvz c910ZzCkAWV3SMSzwHHa M0AhoG1wUjHwBDTe LDVyC8WedHVuEWqzO022 VJqjVfL1UYAglcKqK6Nc VOQgcVhxXqM5p0W4Iu9I gODtZ7WiM1j7F7Tn PjwvdHI+BG50TJGwPA15 tNOmnSQcu5ouaWt1QpPn REFkNLP1gGyuHZrko5Rt WDRnO62neUZfv3R8 IGNvbGxhcHNlOyBlbXB0 gO3ySIkfdvzml5tperth Greec4hmij37uO16T25f IHdpZHRoPSIzMCUi PILolZskjg0scQ7yQj8+ BNPvmKX7bQX4nY7ePjPb HmQ3BCuzD787TvHgfURs Ncohc3zol8kidFz6 IjIwJSIgdmFsaWduPSJ0 b9KeCw91P64eUXgrNOEz ZLZeRLIdPRGhmZrxdi4j cU9sEb0+CW7rc3ov ve03dQ94lXJ+PHRkIHN0 mPykIGelXMRekV1pYYhf DyJ1EMHzCuYriY13sJHq HBauMe5gxOblhFpd PE4xKJIdqnbsg440LuNr c7mnKNGliQNlVLzoCAG8 H27ik4S5XNLiWVZmIHO2 yHL2fU4gtWemyrqz bGVmdDsgdmVydGljYWwt GJoqE052VQPtbKxfRoBe pJSzM2pdolUWFL0eTfri dGQ+KXFoNMJ3aUei QYuwXMYavX7nZRZcD6j5 IbTiFrB0GIimI0WxmzU6 QHCnwHMvTLOvlHIUtM6k urpoj8soqldiNpZw ZMDwSRb3EGp2BIDslWfd FrWmGWL6ZoJ1KOL3uMPm zX6dgMjrrvgsjF9aXur+ RklOOjwvdGQ+PHRk OYF9xHctXTmxLGAvvH2k QTHaB2w7ZyCbZuS5OEwf V1PidtX3ELNjqOCiXRXr wGNEuC2huzrnm2pl swkfBwGqECSbELz6NZp4 CLUyiJxsGoVqAAQ4GaI1 PLS1lQQsoO8hjZtlccog sY4zDjb+TVJOOjwv dGQ+AJKpPTF3qEmxZNbb XFLpuO7tKXIuP0s2VoSl WaL7QYkdS8LxbhJ8MJJi rMXxOXYpyEIMtI1l plxcj7bprunvWyGaMNVc BXr0YKp3UZKifIcjTaAl BHO8YwO9WWA4qXTzqY5r tAwcrdgjqM5bYhl+ BWH5HZS9DX17UD05I6Rt PjwvdGFibGU+PHRhYmxl IHdpZHRoPScxMDAlJyBz pNwoLV5jGy9wLZMu LWN (more content not included)... [facility] Coding Summary HTMLBase 64 YmzdzaqkEHv7bVo+PGhl YWQ+LQ6DSCXlX03slQAf kI0rI0HGQJkKEfxpQKBJ ULhOOgGcksYiIC6puOSy ZXJu IC8+JN5tPRMcLwfkhFTa p9R1cUF3A35vlz3xIWxn hMQ3YFHwBcBexwchc1es rNb3UHjyWvsiDzPv JZNsuZ60NIN4vE72Hc58 uBOjqAOyn4zidFy1BvQw SUOmVNV1xMrlJEmle4Zi STEpG64abSDhb4S1 IGNvbGxhcHNlOyBlbXB0 cL0fXHecfzgip8mshqgu Mqc2ll29sUOlf5S9uTW4 S9PqfiN9IDOwyAYm TadboLOXuN3fsefue5rv txshToYaSSAlGWh2GXr6 YLDfcAvaQhGbAQ32CBR1 NVZoiyGcF7JtBTFt uUqnBfE9a2J9Yh1MJ9DP KltqF8FHUUCFMKkdwWB+ UV77uh36L9RaVenlCup9 EYYhKJZ7tHB7wG7x DEOvERgoh7S2iVQ1P0As jhPboj2ku8ezOXKtDDjc F01zrBSxv2Y4CJOqoJP8 ERRyjUjgBrSezS15 Oyc+LZZffChil1TgRwrd x5yxc5kghKk8CwqsIUJk fmYoiZuqPVC6e7NgNh1j NPXypHA5rSA6xB0g TqLvZnV7NVmaG882SrVu bCNoUakuB16dY4NneJI+ OSXpDgi0IZMrbTegUE7i U2IfFSMirupbkLXx eBxsHE0dURPlxajxIKRt fM1oYKAqX4n7FuXiJdM0 GOknH4BfYPOqjzvjFq13 uB2rKqKpLgS5SQxg K2LrpiD2OEAnmMYeKOxl KWI8K44tz9W3BZFuPKZb GNJ5pFH1lE0uaFqdvbcm bGVmdDsgdmVydGlj QGfiFLvzC608KLOlxOxw PkNvZGluZyBEYXRlOiAg MTIvMTEvMjAyMzwvdGQ+ GPQbXYV8fOumYYJq qBHoEUcsGp5psYrwbPuo QA3rHPZmprveCXEygA6w LPGqcZMowEtwPP8jMUFe gmhbv052YiImLQZ3 QLGjgXZbB5AplG1qYpRf RWQfZIQyH8QghMAoWEsu P470WWvrLpU3GEHzkmTc K8CqLLTdhDxrZoW4 g6S7Kb0Jd6PlbvmoL9Kg kVIlKgNvKbtgCXo3Z4Ib PjwvdHI+EV97SGYoZM35 CYb3IDY9nTuxHBph AYAnT8IvbM5aUfRuYAPj ZGRkOyc+PHRhYmxlIHdp ZHRoPScxMDAlJyBzdHls UP8tMa4mZTFjPREa vHquyAWmCrZcj8rdAOWw DUvxNK4ibIwnS8GquPZ3 OKKku5e8Cb00Y29vC3Ro dXA+IATooRD4yWX0 pD3dQuLiUmR1WIbwV938 CvTkcCHgYxhdb4xoe7gi xQm2YbE4SFIdqoOekTmm TNB0z9EvMx51S52b IHdpZHRoPSIxNSUiIHZh hCwwja9zrE6bAk3+PGNv aYI7iCQ6jK0rYxLqHuM6 ERudS072ZqLqhWBv Hhsza3sug3yvzId9GiEm PUFmbpItdXehKUM3c0Nn Zw12T0ZuyAulc2MdMce1 bv78lGJzu3B8hCE9 P4OpCUVzyppxmPWheDod WO3qFYXpmyqlMDZbdP6h JUVyT6v6JhWrXlY9BZky I8ZlwvQ7RCZxhVIa GUOhoNMArP4feonmk0cw qvriGkSwCRXfLBp9HSb7 ETDoqUbtMaOpKHF1PhI6 NQE3kMNmtO6sgDdn rusklQ1tFhd+NYB9bARz gWDVWK6dZntpcAM+PHRk PLD9hSgbKJsaGSBkuC2j IFOiY5a9ClXmSfK9 LHxfH6TujrE4ONUghDBp EWAmsBLMdX6jabzqf1gh byfnQrNzKODgVCd4WTz2 LWFsaWduOiBsZWZ0 LsZ9YEA3vYDtyF0rhJzn etghgY7fXzb+QmlydGgg XNP0HVm8P4TqOwr0PSAd yNctWF9ryIPaVMex Qx9xeComaOpyLJ0oZQRu zahmc385EjZkc0odWEZk hNYfZBreUYH3V41xd4J0 TNMiRJCbKMO0sLU4 kM1fdOjvxcfssLOrqJww buQulClmNExbGJcwC304 QVXfiZwmRvSzNRe4U0Qg Rnh3SVElvWipZA0j eVRyLVcqZa6jvMdmuQvp DF9aXCLqnohyw911QkWj w9taXTEsrLZqFSxtOJD7 E82ac2Z9KQLsHMFe JEU0fYV0yO9gbZhrynwq bGVmdDsgdmVydGljYWwt JMefL467JHRjrTlkAlVc nPj6W2QhMdb8GXSx dElhAU1ipIOxFNebOl1x cZuurRuhXR2iBDLcfrvk v723TmFqr7fpPGGbjVIk VXrnVTB6P84hx0T6 YMHkHYNxQNY5gVV4nB4e bGlnbjogbGVmdDsgdmVy qQynGGtvDRnbL185DGHq cDsnPlBhdGllbnQg NSkeEDb7J9MzRnipwBS+ PM17KKOjYL68mBHmuGRi o9xhuDl3YjPgBZHkQDM7 vWfbWYblk6EzVRLn W49qwHSpz0G1NHXepPnk oPYzKbPyqYO3mW9qCCtm prkdv1thlpqdIywbe1wq vn18lY19U86tVXib ZHRoPSIzMCUiIHZhbGln eb8heG5gHh8+PGNvbCB3 jSF0oH1nFCThRlS4LKgx J921HoLqwDHjAtew d0zuc4lmnCc3DnN0AKYf yaTjeDsnHCF8y6XbPa82 P73tCVtiLHPmTQJwDRLd CKIdqCeatw0vfO5g Ii8+TKRtcCY2xIK6aM5k FnOjSkR2WOayH885GtIg jSUiRgdtK91xR8XvlUL+ PXElLxu0GOSsnSmn BN5qjAJjGRxoVv1wZHY8 LkDeZpNdUNgmL0UdVSYm wxcukrdrjFD8ZTHwPASw mA93Qf7hfYsyPJDm lYRFmO4ortlbh3btayto PpRjBCNeCIk2BNw5SMVu tFzeWsYcALG2CpL5EXB7 bBMurR8ooQsxmnuy oZ8hY1ThECEmwmukXz65 sK2hGwUfKkR0AUxhLvw+ JQ1LFWBKURLYIWePAFLZ IGJJGIZ6S3RzQco0 WFXzyFrnCJ9cxILbDZke Jj6nzKuhnQdwMB5bPFYk ioylIULvcN3yXURfdZEl qNazKH7yLIByotzu g180UwMvBSM8HYIbgSWs R6CpwJ0xMxEjUSXpUBGx G2EztRGmAIpxF422GXgb RpQ5SPHcttKfX3Ay IDKstJjgMtA1g7W1Ry6k Na7oSW8qUKajYI55WW04 pKOdx8U8vVA7W3CeXOBn rawfkfoyhAO8TTIt WCVqjE91yCHfTRgeAi3g q9P3v892OOUeLVAwuI00 Xr0xqKqzRCTqmLZIlX7h twgkc8rjhiiwZeWo ASNlQCz6TSb0CRQqyEyu PuTiWWM4MrW7GGT1rFRk dS8qmIactuxmfB6vQoz+ NkUnPXJkdkI5D2Sn Jpk8STXxgNtsNB0qkPGi UZjrTp6ozJyftQrvPQ2n JRVmfulhBJJgbX1jDGSi sYLvcGtvDL8iNFLl yykae491QvHbJRH5WAYa lZHtI0TptV9vFqWhPKVe ZAFhM4BkjMKyCNszV634 GGglCbP8WZFhyjSg A9DxNUAyrBkiSzW6k5A8 Gd8NQX0JGDI3P8SaNvd1 QDRduMyaIC3eoNKkKZla Tz0jqCatkCjmQG3u XFQumtglATJgrK9lGTCj fYEvhNyoCZ8tDGRrjxzi a463XlPjRAT8RBMlyJHb I4FqpV8jNxMuXKEr EDShL7VirJIuMSixP829 MUfhCiG0JYGceiWyV3Sr WEVaoMsoWtQ3g8Q1Wh2C fVVwK3MhQ6x0D8Jt PjwvdHI+NR62RRFmKP64 tTFdnLOfm5pwdNg8CjGe XDBhOUY3mTrvCGywj4Ku CXOuA75faWYat2N6 IGNvbGxhcHNlOyBlbXB0 oV8yVIlpwentk4ojkjze Gpytv5uxdy70zT28J75j IHdpZHRoPSIzMCUi PLPptDotxm7fnW1xLg9+ SZUvcFA0oZL9fV7qAsFb BjM0XZuvL227LqJtkLAt Mjnna1ezy0jtnIr8 IjIwJSIgdmFsaWduPSJ0 d6AwHe28S45rCFxaJKSi VQJyFESuNITusVywfu8k zH7iJk1+LS4ti2gv bf62xG83pTI+PHRkIHN0 dIqhAHfcHSDzrW2sUMri WhK9XMQnIsXazJ99mNJj SGomXo1ssChwlRcq CJ7fUDYsxrkoh841YyPh a0vyPPXjnLBrEXcmKRF3 X70rm3R9XDAqPFBwICM8 pEA5gX7uvQrrombk bGVmdDsgdmVydGljYWwt LRdsW630VCLujQqfHtBm pEOkX5ncshEEHB1gEtla dGQ+DTNxLQH6kSbi EIslWGYvzV8jABFrD9y0 HlBvYaX6XRaiS3QyetU9 MYKdbGIbJBHuzUHYyM9y siqvt3hbxqpcZqVe SDAoNHq6WKy7HSUulTnh EnYcSBR5IiT1XBM4yRYl vL2ogHkzrnsebX2tGlu+ RklOOjwvdGQ+PHRk GPW7mTvxKRsoKVZroZ6m PULoI0u2NlKrFgL5VEhv W4JdwfI9ZBGqtTFdOAVf xUUJyD2kycrta5df jnchLuKzWEBvUAi2DCz5 EDQnmCdfSzYzMFV6KdH8 RJZ1aLRwwH9naRbwuyqi oY3hQix+TVJOOjwv dGQ+MKYeHQU8eXnnCIge PQAhmZ7gYHOdT3y7WaPa EqU2HFfdR3GvyoR1NZZp gOYbEWMsuFLXdT7s jzcqd2zoenetFkBlZEZy GJm5DSe6HWLmjHshDeDd UYG5VvP2JJC0yTVwgA2e rBchotmaeK8lRtt+ MOM4YNX6JE76TL16R3Fd PjwvdGFibGU+PHRhYmxl IHdpZHRoPScxMDAlJyBz bWcyPK1zOq3pSRNu LWN (more content not included)... [facility] Coding Queryon 06-05-2023 Coding Query [...] Johnson DO [Transcribed on: 06/05/2023 16:33 EST] [facility] Standardon 05-30-2023 eGFR Non AA >60 Invalid Interpretation Code [facility] Comment on above: Performed By: #### 5 [id number], [id number] #### [facility] (DEFAULT) [address] [place] [address] 15908 eGFR AA >60 Invalid Interpretation Code [facility] Comment on above: Performed By: #### 5 [id number] #### [facility] (DEFAULT) [address] [place] [address] 48293 Anion gap [Moles/Vol] 13.3 mmol/L Normal 5.0-19.0 [facility] Comment on above: Performed By: #### 5 [id number] #### [facility] (DEFAULT) [address] [place] [address] 26886 Calcium [Mass/Vol] 9.1 mg/dL Normal 8.9-10.3 [facility] Comment on above: Performed By: #### 5 [id number] #### [facility] (DEFAULT) [address] [place] [address] 75258 Chloride [Moles/Vol] 102 mmol/L Normal 101-[address] [facility] Comment on above: Performed By: #### 5 [id number] #### [facility] (DEFAULT) [address] [place] [address] 34828 CO2 [Moles/Vol] 25 mmol/L Normal 21-32 [facility] Comment on above: Performed By: #### 5 [id number], [id number] #### [facility] (DEFAULT) [address] [place] [address] 86531 Creatinine [Mass/Vol] 0.55 mg/dL Low 0.60-1.30 [facility] Comment on above: Performed By: #### 5 [id number], [id number] #### [facility] (DEFAULT) [address] [place] [address] 09074 Glucose [Mass/Vol] 293.0 mg/dL High 74.0-118.0 [facility] Comment on above: Performed By: #### 5 [id number], [id number] #### [facility] (DEFAULT) [address] [place] [address] 05049 Osmolality 283 mOsm/L Invalid Interpretation Code [facility] Comment on above: Performed By: #### 5 [id number] #### [facility] (DEFAULT) [address] [place] [address] 58893 Potassium [Moles/Vol] 3.3 mmol/L Low 3.6-5.1 [facility] Comment on above: Result Comment: IV T herapy Performed By: #### 5 [id number], [id number] #### [facility] (DEFAULT) [address] [place] [address] 32678 Sodium [Moles/Vol] 137.0 mmol/L Normal 136.0-144.0 [facility] Comment on above: Performed By: #### 5 [id number], [id number] #### [facility] (DEFAULT) [address] [place] [address] 69805 Urea nitrogen [Mass/Vol] 8 mg/dL Normal 8-26 [facility] Comment on above: Performed By: #### 5 [id number], [id number] #### [facility] (DEFAULT) [address] [place] [address] Urea nitrogen/Creatinine [Mass ratio] 14.5 mg/mg Normal 4.6-16.2 [facility] Comment on above: Performed By: #### 5 [id number], [id number] #### [facility] (DEFAULT) [address] [place] [address] CMP Standardon 05-30-2023 Breakpoint Chem Normal [facility] Comment on above: Performed By: #### 4 [id number] #### [facility] (DEFAULT) [address] [place] [address] ED Clinical Summaryon 2022 ED Clinical Summary [facility] - Emergency Department [address] [place] [address] ED Clinical Summary PERSON INFORMATION Name: DOUGLAS CORDOVA Age: 27 Years Sex: FEMALE : 1995 MRN: Acct#: Visit Reason: Hyperglycemia; Hyperglycemia; HIGH BLOOD SUGAR Arrival: 05/29/2023 22:26:11 Discharge: 05/30/2023 02:16:00 LOS: 000 03:50 Check In: 05/29/2023 22:26:11 Checkout:05/30/2023 02:16:00 Address: [address] [facility] [id number] PCP: ARCADIO IGLESIAS PROVIDER INFORMATION Provider Role [...] penicillin PHYSICIAN DOCUMENTATION DISCHARGE INFORMATION: Discharge Disposition: Assisted/Fdc Discharge Location: [facility]) PATIENT EDUCATION INFORMATION Instructions: Hyperglycemia, [id number] Follow-Up: With: Address: When: Return to Emergency Department In 1 day 05/30/2023 Comments: home resume your normal insulin therapy tomorrow you are welcomed to return as needed You are medically cleared for confinement. Jaun JOHNSON< ER PHYSICIAN< Scar Shah, 29 MAY 2023, 2255 hours DIAGNOSIS: Hyperglycemia without ketosis Patient Understands: Yes - Patient/family/careg iver verbalizes understanding of instructions given Comment: Normal [facility] ED Patient Summaryon 023 ED Patient Summary [facility] - Emergency Department [address] [place] [address] PATIENT DISCHARGE INSTRUCTIONS Patient Information Name: DOUGLAS CORDOVA Age: 27 Years Date of : 1995 Reason For Visit: Hyperglycemia; Hyperglycemia; HIGH BLOOD SUGAR Arrival Time: 05/29/2023 22:26:11 Primary Care Physician: ARCADIO IGLESIAS Attending Physician: Linn Johnson DO Comment: Visit Diagnosis: Diagnoses This Visit Hyperglycemia ([id number]- [id number]) Hyperglycemia ([id number]- [id number]) Hyperglycemia without ketosis (R73.9) The Pharmacy at [facility] is open Friday through Friday from [...] alcohol and/or drug addiction problems; contact the [facility] 20/01 Crisis Hotline -Text 4HOPE to [phone]. If you received any narcotics, sedation, or [...] PHYSICIAN< Scar Shah, 29 MAY 2023, 2255 hours Medication Information: The exam and treatment you received today in the [facility] Emergency Department were for an urgent problem and are not intended as complete care. It is important for you to follow up with a doctor, nurse practitioner, or physician?s email marketing assistant for ongoing care. If your symptoms [...] so we can reach you if necessary. [facility] Emergency Department has provided you with a complete list of medications post discharge. Please inform your unarmed security officer/provider of your visit and for further instruction [...] a day. Durable Medical Equipment for Prescription ([employer] REPUBLIC DASH PODS (GEN 4) 5PK) change q [...] EDT teste (more content not included)... Normal [facility] Ketone Serumon 05-30-2023 Ketone Serum Small Normal Negative [facility] Comment on above: Performed By: #### 4 [id number] #### [facility] (DEFAULT) [address] [place] [address] Outside Recordson 05-30-2023 Outside Records [id number]. 00OTGTIFF Normal [facility] POCT Glucose Levelon 023 Glucose [Mass/Vol] 288 mg/dL High 74-118 [facility] Comment on above: Performed By: #### 5 [id number], [id number] #### [facility] (DEFAULT) [address] [place] [address] 24954 Glucose [Mass/Vol] 278 mg/dL High 74-118 [facility] Comment on above: Performed By: #### 4 [id number] #### [facility] (DEFAULT) [address] [place] [address] 99244 Test Urine 1on U Preg Negative [facility] Comment on above: Performed By: #### 4 [id number] #### [facility] (DEFAULT) [address] [place] [address] 22956 U Preg Internal Control Pass Normal [facility] Comment on above: Performed By: #### 4 [id number] #### [facility] (DEFAULT) [address] [place] [address] 07455 Progress Note - Nurseon -0 Progress Note - Nurse PT and [employer] deputy advised of discharge instructions-advised to check glucose every 2 hours until stable then to follow correction protocol-may return at any time, educated on s/s of hypoglycemia to watch for. [place] provided with medical clearance form. Pt assisted back into personal clothing and cuffed by officer for custody. Pt provided with education and resources for transitional housing, [facility] Bejarano [place], and [facility] hope line. Pt counseled on addiction and [...] Turner RN [Verified on: 05/30/2023 02:13 EST] Yue WOLFF Shellie Weinstein Normal [facility] Telemetry Stripson Telemetry Strips [id number] .[id number] [facility] .Auto Diff 1on 05-29-2023 Auto Bremer % 6 % Normal -12 [facility] Comment on above: Performed By: #### 4 [id number] #### [facility] (DEFAULT) [address] [place] [address] 87537 Baso Abs# 0.1 x10 Normal 0.0-0.2 [facility] Comment on above: Performed By: #### 4 [id number] #### [facility] (DEFAULT) [address] [place] [address] 06914 Basophils/100 WBC (Bld) 1.3 % Normal 0.2-2.0 [facility] Comment on above: Performed By: #### 4 [id number] #### [facility] (DEFAULT) [address] [place] [address] 68988 Eos Abs# 0.0 x10 Normal 0.0-0.4 [facility] Comment on above: Performed By: #### 4 [id number] #### [facility] (DEFAULT) [address] [place] [address] 19081 Eosinophils/100 WBC (Bld) 0.4 % Low 0.9-4.0 [facility] Comment on above: Performed By: #### 4 [id number] #### [facility] (DEFAULT) [address] [place] [address] 62821 Lymph Abs# 1.4 x10 Normal 1.3-2.9 [facility] Comment on above: Performed By: #### 4 [id number] #### [facility] (DEFAULT) [address] [place] [address] 34386 Lymphocytes/100 WBC (Bld) 25 % Normal 14-48 [facility] Comment on above: Performed By: #### 4 [id number] #### [facility] (DEFAULT) [address] [place] [address] 44370 Bremer Abs# 0.4 x10 Normal 0.0-0.8 [facility] Comment on above: Performed By: #### 4 [id number] #### [facility] (DEFAULT) [address] [place] [address] 52545 Neut Abs# 3.9 x10 Normal 1.5-9.2 [facility] Comment on above: Performed By: #### 4 [id number] #### [facility] (DEFAULT) [address] [place] [address] 62276 Neutrophils/100 WBC (Bld) 68 % Normal 44-88 [facility] Comment on above: Performed By: #### 4 [id number] #### [facility] (DEFAULT) [address] [place] [address] 94033 CBC w/ Auto Diffon 3 Erythrocyte distribution width (RBC) [Ratio] 15.1 % High 11.5-15.0 [facility] Comment on above: Performed By: #### 4 [id number] #### [facility] (DEFAULT) [address] [place] [address] Hematocrit (Bld) [Volume fraction] 38.8 % Normal 33.7-40.4 [facility] Comment on above: Performed By: #### 4 [id number] #### [facility] (DEFAULT) [address] [place] [address] 56959 Hemoglobin (Bld) [Mass/Vol] 12.5 g/dL Normal 11.3-15.9 [facility] Comment on above: Performed By: #### 4 [id number] #### [facility] (DEFAULT) [address] [place] [address] Man Diff? Auto Invalid Interpretation Code [facility] Comment on above: Performed By: #### 4 [id number] #### [facility] (DEFAULT) [address] [place] [address] 70318 MCH (RBC) [Entitic mass] 26 pg Normal 24-34 [facility] Comment on above: Performed By: #### 4 [id number] #### [facility] (DEFAULT) [address] [place] [address] 90681 MCHC (RBC) [Mass/Vol] 32 g/dL Normal 26-37 [facility] Comment on above: Performed By: #### 4 [id number] #### [facility] (DEFAULT) [address] [place] [address] 52594 MCV (RBC) [Entitic vol] 80 fL Low 81-100 [facility] Comment on above: Performed By: #### 4 [id number] #### [facility] (DEFAULT) [address] [place] [address] 48042 Platelet 255 x10 Normal 138-427 [facility] Comment on above: Performed By: #### 4 [id number] #### [facility] (DEFAULT) [address] [place] [address] 62088 Platelet mean volume (Bld) [Entitic vol] 7.9 fL Normal 6.3-10.2 [facility] Comment on above: Performed By: #### 4 [id number] #### [facility] (DEFAULT) [address] [place] [address] 70180 RBC 4.84 x10 Normal 3.70-5.30 [facility] Comment on above: Performed By: #### 4 [id number] #### [facility] (DEFAULT) [address] [place] [address] 74309 WBC 5.8 x10 Normal 3.5-10.5 [facility] Comment on above: Performed By: #### 4 [id number] #### [facility] (DEFAULT) [address] [place] [address] 60850 CMP Standardon 05-29-2023 eGFR Non AA >60 Invalid Interpretation Code [facility] Comment on above: Performed By: #### 4 [id number] #### [facility] (DEFAULT) [address] [place] [address] 39048 eGFR AA >60 Invalid Interpretation Code [facility] Comment on above: Performed By: #### 4 [id number] #### [facility] (DEFAULT) [address] [place] [address] 32892 Albumin [Mass/Vol] 4.3 g/dL Normal 3.5-5.0 [facility] Comment on above: Performed By: #### 4 [id number] #### [facility] (DEFAULT) [address] [place] [address] 28144 Albumin/Globulin [Mass ratio] 1.2 {ratio} Low 1.4-2.6 [facility] Comment on above: Performed By: #### 4 [id number] #### [facility] (DEFAULT) [address] [place] [address] 59737 Alk Phos 80 IU/L Normal 32-91 [facility] Comment on above: Performed By: #### 4 [id number] #### [facility] (DEFAULT) [address] [place] [address] 68990 ALT [Catalytic activity/Vol] 23.0 U/L Normal 14.0-54.0 [facility] Comment on above: Performed By: #### 4 [id number] #### [facility] (DEFAULT) [address] [place] [address] 76414 Anion gap [Moles/Vol] 14.3 mmol/L Normal 5.0-19.0 [facility] Comment on above: Performed By: #### 4 [id number] #### [facility] (DEFAULT) [address] [place] [address] 51947 AST [Catalytic activity/Vol] 17 U/L Normal 15-41 [facility] Comment on above: Performed By: #### 4 [id number] #### [facility] (DEFAULT) [address] [place] [address] 47823 Bili Total 1.1 mg/dL Normal 0.3-1.2 [facility] Comment on above: Performed By: #### 4 [id number] #### [facility] (DEFAULT) [address] [place] [address] 40331 Calcium [Mass/Vol] 9.0 mg/dL Normal 8.9-10.3 [facility] Comment on above: Performed By: #### 4 [id number] #### [facility] (DEFAULT) [address] [place] [address] 36277 Chloride [Moles/Vol] 94 mmol/L Low 101-[address] [facility] Comment on above: Performed By: #### 4 [id number] #### [facility] (DEFAULT) [address] [place] [address] 16761 CO2 [Moles/Vol] 25 mmol/L Normal 21-32 [facility] Comment on above: Performed By: #### 4 [id number] #### [facility] (DEFAULT) [address] [place] [address] 01489 Creatinine [Mass/Vol] 0.73 mg/dL Normal 0.60-1.30 [facility] Comment on above: Performed By: #### 4 [id number] #### [facility] (DEFAULT) [address] [place] [address] 91097 Globulin (S) [Mass/Vol] 3.5 g/dL Normal 1.5-4.3 [facility] Comment on above: Performed By: #### 4 [id number] #### [facility] (DEFAULT) [address] [place] [address] 78190 Glucose [Mass/Vol] 784.0 mg/dL Critically abnormal 74.0-118.0 [facility] Comment on above: Result Comment: Crit ical result GLU 784 mg/dL called to and read back by rd managernew kline at 29-May-2023 23:28 by erica. Performed By: #### 4 [id number] #### [facility] (DEFAULT) [address] [place] [address] 66570 Osmolality 295 mOsm/L Invalid Interpretation Code [facility] Comment on above: Performed By: #### 4 [id number] #### [facility] (DEFAULT) [address] [place] [address] 27631 Potassium [Moles/Vol] 4.3 mmol/L Normal 3.6-5.1 [facility] Comment on above: Performed By: #### 4 [id number] #### [facility] (DEFAULT) [address] [place] [address] 06185 Protein [Mass/Vol] 7.8 g/dL Normal 6.5-8.1 [facility] Comment on above: Performed By: #### 4 [id number] #### [facility] (DEFAULT) [address] [place] [address] Sodium [Moles/Vol] 129.0 mmol/L Low 136.0-144.0 [facility] Comment on above: Performed By: #### 4 [id number] #### [facility] (DEFAULT) [address] [place] [address] 24305 Urea nitrogen [Mass/Vol] 8 mg/dL Normal 8-26 [facility] Comment on above: Performed By: #### 4 [id number] #### [facility] (DEFAULT) [address] [place] [address] 32676 Urea nitrogen/Creatinine [Mass ratio] 10.9 mg/mg Normal 4.6-16.2 [facility] Comment on above: Performed By: #### 4 [id number] #### [facility] (DEFAULT) [address] [place] [address]842 ED Note - Physicianon 2022 ED Note - Physician Patient: DOUGLAS CORDOVA Age: 27 years Sex: FEMALE : 1995 Associated Diagnoses: Hyperglycemia without ketosis Author: Linn Johnson DO Basic Information Time seen: Date & time 05/29/2023 22:31:00, Easy ambulation past the fish bowl, in no distress, in presence of police surgeon. History source: Patient. Arrival mode: Private vehicle, walking. History limitation: None. History of Present Illness The patient presents with This patient presents to the emergency room with an elevated blood sugar, she is a known diabetic, she is to be a resident in the local correction facility, she has not been using her [...] be started on the morning of the correction. Impression and Plan Diagnosis Hyperglycemia without ketosis (YKG41-AE R73.9, Discharge, Medical) Plan Condition: Improved. Disposition: Discharged: time 05/30/2023 01:55:00. Patient was given the following educational materials: Hyperglycemia, [id number]. Follow up with: ; Return to Emergency [...] 05/30/2023 02:57 EST] Linn Johnson DO Normal [facility] POCT Glucose Levelon 023 Glucose [Mass/Vol] 590 mg/dL Critically abnormal [address] [place] [address] Comment on above: Performed By: #### 4 [id number] #### [facility] (DEFAULT) [address] [place] [address] Glucose, POC >600 Critically abnormal [address] [place] [address] Comment on above: Result Comment: read high Performed By: #### [id number] #### [facility] (DEFAULT) [address] [place] [address] Coding Summaryon 03-27-2023 [facility] PzjrrmzrBKc5aPv+PGhl YWQ+MO5CSUIjL55hqXWk uX8lT3KLGYrMXnijAWCJ IOhITvGfpcBaDT0jmREo ZXJu IC8+KK7sUECwAzjfaXOc k6V5oPC0I66pho5wUCto pRC4UYQgKqNxqrhnv2wd nQo5QHryHmngPpRp JQOohN05OYB7vZ82Nq81 wQVjgWBfv0tyvUk8KjDx VLVvEAX4aOmuIKbnl3Ha GIQsA69bvPQyh8J9 IGNvbGxhcHNlOyBlbXB0 hB9iDGwixrxbg3aqqwal Pxz5kc82iCNrn6Q8zJS4 H5WflyS4VZMzqFHx JgvmkBXPgI9odgiyo1uv gzfaJkGyEJReTRc8XAj3 OKOlnAzmFqEaJM68CBO1 VTIgedJeO9PkSGUc nVxsIcP8g0T1Ik5SH3ZF SctgY3MFAUABJVcsfLP+ YT90jr09F4IyUxpkHed4 FNZfHBI8iTV8zT1h FKDuWOoce1N7gVP4D8Ej vzTjqj6vw5gwAGNmPBpz C22ckQCvl0R5LXBktVW1 BRZyaFaeTpMjtW80 Oyc+HOUjtJnem1OiHshm o1gct0kapIr2YawcJICs ecOfoMpkFXF4z4BsQk6z DXPcqFF6wXD4vQ1w IxVzJvT6GKscD192FyNy gAFzCmybB75jA3DbbZB+ EQPxWoj5SUYvnBbnUF8d A2YwSOJbfrcuqQYh pCyrCT6mITTlypvvRSWh jH5nBXKmM1o7EvJwXhJ9 BXqoH7TeKDDfalpsFy35 kQ4cEyGkBsI0GJbs K3GgvpY0JRQnsJQsVLmd PVI1Q63sq7Z4GVPjWPKe NZT5lPD8sR0pmColsttg bGVmdDsgdmVydGlj TNqcTNfuK561DJOomEkl PkNvZGluZyBEYXRlOiAg MDkvMjgvMjAyMzwvdGQ+ HUPjFDK6aAfpGXKu tIVgIQftSk4spBndlCbf JN9hHQNdvlxeCPRpmN7y HAWqeOArfDjdRH1hTBGr irpuy115TvRxTCE2 ZAWfdKAnR4OltK7jOeCj OUOuVZRaC5WeeZKdRRdv F976DWnyAfB7PSIlreDd M9TpTHPfqHanHkE6 p4R7Ji7Zn2NiwxxnU8Lm gSZiJzGkXvmeHYk2M0Tk PjwvdHI+LS58QGVxDA87 TXa8TZH1qNlxYUdx TUKmU4DunH9eTfHrALYv ZGRkOyc+PHRhYmxlIHdp ZHRoPScxMDAlJyBzdHls ZP8yUe0fTGHuYGBq yChoqAXlJnNhl1oaGZFo JRsmXE5kjIvaG3KusIY3 NQFon5a8Os59Y35sS3Ej dXA+VFXfgMF0xHA2 pT6rNbGqXzA4WDccS816 ZuZauMUdZvgyh2dhe6ym iIm5OuS6NEYrpgNwrNve CZA0n3MvSd35S57p IHdpZHRoPSIxNSUiIHZh dUqxsv5kwX7mWs3+PGNv qJA0sBE1aD8xFcDxCpV0 IWcjV108GyEgnGAq Xozhg5ptk9exwTs8QlBv VYVaerFtpBiwTIS9f0Se Ea16F1EqfVpnr8MgPnu0 la50gKMpo1K0aZM7 C4JxQBXtivdxhSYpqNpz GR3oISVonxdlLJCxpF2s KGHqX8n7HcLrFqY8NObi A0ElgyJ6YZVwuDIv SIYedBOSgB8yzcpnq2th rhmtKnHiYSTySSm6NVo4 DPRylUizLwKrZVM7VuA6 UJP8xXTuiT8xeGre lpudfS0eXng+WCG8wGWy uNRLTU9aVmomgFH+PHRk BIX0gFjjASsjXRUcsC4e JHTgL8y7PsEvMxY1 SDkrR2WbyvL0BIPhgCDz BWWedEGJpU4gfslos6no kdijNrHoWHMlVIr2UBv9 LWFsaWduOiBsZWZ0 BvW4UHE0pOLorV0gcBam hbpqeW8aYvg+QmlydGgg FZW4XFx6R3UaWth2LKIs yDpzXC7vcISfQTfl Pf2zvQcpmAjdBP3bNSOy qjxeo395NbZzi4muFBMz cGGgCUoiHIU1L96ks5L0 LQHeUPIzSMF3vGI9 iL7amZuivkuxeASpaFpw wgTneEifKSijZPtwL170 YUIkyLiqGbUgAJy3C8Di Hho8LAIifWhgHK6m wJOxERvzCt3hkIituJnn BW1lKMQilqmme754QaNt p0nhQANieUHzAQhmNJL1 T99gy4E1TUXmGYJj PSN1wOX5pG8rxYwnjdxy bGVmdDsgdmVydGljYWwt UFvdK551BNOzaAemXeDa kWr8O3FtKhe4OSRa nBthEO1giLNqSEnrCj4f lYrzvEstKV1wIKLgcdrn o803FtLwb9qvUBJjtGCc XFywBHX1M53sn4I8 TWOsIXNfRGA4dML8wY5p bGlnbjogbGVmdDsgdmVy lIttZLqzVHyuF896URBc cDsnPlBhdGllbnQg WAqtSUj3K4PiKfsxcWV+ QB46BERgVE06dGQciPVs s0vgnNy8DzXvVGKzPNR9 iTqrURbvh1DrEAZm R20pdVAwa8A6IHCniHas wLElKcFahYK5fG2lKEhg qhmca4zspepbCrctr1me kh04mQ48K52fYTjv ZHRoPSIzMCUiIHZhbGln hy4zzW6aAn5+PGNvbCB3 uTC1uL7tIYRoEnZ1LLvq T780CqNulAVaNdzx w1kyw0yqiCf3DiA5YYRb qsOjtFgwQJH5l5XjJd17 J17pKQivVAHbDHKdOCHb JBWdyLndhy1zqZ2z Ii8+PODbeVA2iDG8cI1v CyEyJpZ3VKdvT816PdRz nTMrFqusX80eK8VrgIG+ FKBbVjv2TDLizFbo JS7eoPCaGGkwUt0iPYN0 BrFbJiXkXVleS6BaCVIe khthbxyahWB3DJUzTFJm qH16Co3sfMhuTJYr tYAAuM1dwqeih5wxmzgj NqBhBICbHUg9NDa1YPVl oMtsZxHbYPI3SvE1IDC5 gMTkhJ2hbNlejfzq gA5jW3XfANXejztjMh28 uW1nTwIoZaL0XTnxEmt+ CU8KHZCBYNMUHVzDJBBR FS47MY87aUGbl1J3 aKA9N2CpNAKbpgiwtbki mUS3SCJiBDQxlB56zHNx EXixDs2yl3R5r657TNFh JHRtgD36Iq2lkQsj EVDatKJZfL7xysygg5yb hnjoSgFpHDBgBRk6UOi8 IVBgiExzKqLyUFW7GuK4 XJB6xCKbkB1yxLal tvbmxB2mMcg+MTIvMDUv VEj9NnsfkWW+PHRkIHN0 oYqaJOvsMMDfsA7qUAYy B6j5OtVmPjL4TCbt X1GiHJDiysfnOm11eR4l PfCtCdP8XQvsJ9XhyiV4 SPPuhAAcNJyiRZQ2Q96w a9F6LDTsRJJcXWE1 kTC3eD6euYouebafxICg dDsgdmVydGljYWwtYWxp C050MLGsjZjwEnC9ZLdd MWWeUO27DC03cPUh z4U1wHQ6Z5NjLUInbxdo liyhjRL2HAExPJSbxU20 yKBnJFmwZj8sg6O0c988 DBOpLOPyrI25Ub7h cWbpSRYudGUQmP3dqzjn c4odtuofCrOgCUFbXAs2 FCs0IJIhoXjjJbGhOXS4 BsR4BNY8xNXldO1u mTmrvbyrgZ4cQdq+RkVN LWuFCS63HJ63kJEsk4Z2 zBY3O0ZvASNsugettjff sDV2WJDoZMEckQ54 jTRiBUteWy3bj6L6m275 YPBpNSIfkO43Ha5huEkn WKUzsYFXwH3gyfffx7fn cjogIzAwMDAwMDt0 WFx3USGgwSidMhIgJYA0 YkM7UCU8wFNzlT5pdLmd xbrwxV2gVmg+SO5xkdoe hhZ4FR62FU81P9Ke PjwvdGFibGU+PHRhYmxl IHdpZHRoPScxMDAlJyBz kIziVZ8ySi0fYBIfJEBy tIrbpTSqSgMlu6ee LSMhKBnbYG5qcLceL2Gp xCR4JOTex1r2Mi18O63h F3EkhPI+BVJfvBX0nEH7 yM7uWmLcBbQ6FFdd Q415GmAtwNOvDgugl5kf d3wchTe2UlFjBYJobmYg aLikKII2k7UmKn38V09y IHdpZHRoPSIyMCUi HLIhtXpjem4puC3wJi5+ DCHmuTO6qKR9oS1rZjTt FlQ2PKjrE905SpTxcOVj KvtvA71rC2PzuFL+ NIWoAmh7YQYcfOdcXY5z xXFkYNfaUh3aZMM0XuUw QrZnCPxtT2DvGOMeowdd gafggUC0KWEvKBWk mR13Uk2ffIpkBd5iUOGv ZKE8AHDlzPHjB9BpwQ7u BhIkPRLzODLeP6MpgGYl LUyzB458JIkuYtI4 HNUgtdQuH8LjTKUdbHye VtS0e6I5Fb2AdGvywAOc VC7jGmGhXOb2Y2SrDon7 ISZyvSwsYW8mdESs UKzcCk3gkBggoOjzIY3b CUZmjrrxu555KgMnx9di JDIlqZOeZTxlMPR1A84q a0Y5QZMgBYVoKCZ1 iXF9hF4psSsjogbcyPZh dDsgdmVydGljYWwtYWxp A680LZHpmNrzZiSNOyq9 C5XbPut5BLLgfQrq SS2scRPnHVxuHs6vmGzv lCahGT5jWXNsgehfx228 GpNif9ecVDEdoPGvMRxc CTN1Z91nr9P6HIQn RREmTXR2cFI2vU3vtFuu bjogbGVmdDsgdmVydGlj IQefVJcpI414KWAscBfh Sw5DAmo9L5KwNhf8 ARKxcOudXU9dwGRvXYrc Mn7vvVjveUaoCE8cZYDp psqzg856UkQwp1bkHSOl jAYfHWbxFAY3F82x g5D1OGYdXFEhCWE3lKC6 zL3bkJvwlxyhpVQzgHcz kmGdrBtdZDggQNuwF548 IHRvcDsnPlBheWVy OjwvdGQ+SF98aj49S8Bm QesiRjx7QIWnUMZ8lSK8 yK5gVQQlZJbcj8C0dLK8 U5ImfyHaig0qd1gh YXB (more content not included)... [facility] Coding Summaryon 03-25-2023 Coding Summary HTMLBase 64 VbtqehkdRPw8iGk+PGhl YWQ+QY8JZDFdC84blOAh bH5fT3ZECJrNRpjgPEKQ DUvWCbLyrgRpBM3vqFMv ZXJu IC8+PR6pDZDzOgbktVIg e7P6dWZ8F40yil4bTTws nKL8PBIgKwCxmditc1nz tDt1ESzgYvleNgOq WBQjxU51CAI6wB79Wd16 hFPajUAbd3wsuQr6OqWs SRUdNWT8xGdtDHlmy8Pf CKPsD67ioTYyb3K7 IGNvbGxhcHNlOyBlbXB0 kR6nHChuuxuzg0ecmwkc Iys1mr90sXMxe8B5pJP3 E4WvsgT6SPSvwBWp OctfdOQJfQ4cxvqgw0sl vtjyKdRjBCEmSOe7HAq9 VHFyjEyxAxNoGL15KUZ3 WQLlnkYgL0FiKWJf vCmbBrJ2l8E6Ey6FD2CU FdzlZ3RGTFAVRJvqvXW+ DH38ch78D9GwCwpzRnl4 WESdYPQ6rWA6vN6o ZFRcYWflx9I5eBO3B1Jf oxQruy9mi5hyYVDvIXxc I99xjYVpz7H8KIGkyYT4 RYUfiOsqHwMwjJ24 Oyc+JAVouIucl7WtOghq x3hux0wptVe5HmlaYPBc anKqgHytURU7c4MrBy3l MATivGR7zLG5zR8o ZkKkVxC1AVvgN080DjXv jUGnUfeyS96wD8NipHS+ XFNqMyp8LAGctOfxFJ7s J8RqCCPxlhpaxHPf cPffKH6iAACnqjfkIUFw zW5sTKKoF0x2HoAjYnB4 APwuL4VbQFTkqsouSl86 qM5qPgDrQeV7JUeq H1YnrhB3XLCwiELiWEmr GEE4C38yj7X5ZBIpNMTl ZET3gZC5jO3ecQdppaog bGVmdDsgdmVydGlj WItaFJgpV113LOOtnLig PkNvZGluZyBEYXRlOiAg MDkvMjYvMjAyMzwvdGQ+ OGWuPYM7qWmuKUFu eGPdPRnfGc7lxVgwrMqy RI7qSFLtwkrxALBqtX4g PUMblDRsuFmeAY0sQCSt xcgzi906EfGxVPN1 SZZykVMjV5PrnA0aOtAr USUwGOAfU0AokISwPNbw M494JZmpYiV9MEQcieOe R0RxVGZlkGocNkG6 a4H8Cg2Wy9LpfxrdG9Qr cZMeJbEhQpmeAXx9R1Fh PjwvdHI+TF48WNEnRV22 BYk9BVL4lQpwJHgv GKVxR3ZpdL0vVaFiPAFj ZGRkOyc+PHRhYmxlIHdp ZHRoPScxMDAlJyBzdHls HA5wMa7wJZIsMZFf kStjiTHnPuFzm9rdPNQv AVhcPU0bqUssP6KseVE5 GXFhh7p9Zy62L34jC2Om dXA+OXXuaAL6cKX4 kZ9hGvEfBhC4UEwtR482 ZkPdbFAjMdwpu2bvo3pm pDj2OtK4JJSwfyUbmHsh XNN9f3DlXj53J51r IHdpZHRoPSIxNSUiIHZh iOaqiw5llA4cZv6+PGNv lSH4iVS7yR3nWsRuNgY4 AXatN092TeThiHJf Zarqp0etu3dmfEv5WkYp MLLcukPouNtxIDP3t2Mf Uy21S9VvbSzvi3KaXng5 ph57hTEdh3K2yFK1 I4NaCHRdxvypfXIfyUvv DC3eGMAlqquqFBFudG7d SDKeK4s0CsFuJsL0QRxy I9QsraV2BLEidXZs FIEsvKENgL7omjuvb0ho eaxvQzSgVLRaSHv7VYg3 KNHccTurReQoWWR1BsK0 SGA6nTUpwF2ioSiw nnuepZ8oLfe+IPZ2hYNe lGKYFP8sImsvyFX+PHRk GSV8tMogOHcdITYjsD1o LCQfY7l1SaKvQyT7 HQxaT0WjxeB2EBFycNCs YFElfBCSrM5xxabwl7wp nqsvYlXlWNIcGQw8CGg4 LWFsaWduOiBsZWZ0 YbD8FTU9eTHlcC7edSoa dlkosI0mZug+QmlydGgg GBU9WDy7H5CxEwq2LUNd ySpsEX1lnNGbOZaj Ru5orXnuhIgsEF4fJUEi xnycd917LyUmx3fqZKLl cCUdOWzjACP8H90pq1W7 UOAaRMJsBYR3iGC3 jW9abInnmefbxCAowCqr xiEqhAxvLBhaZSzlG051 UUDzmWppGdPaAGq6T3Ig Yue1YWWuaTtqAV4i jDMnECegSn8ucWgqkRmg CT4aLZDbsrscz010LhWc y4ptNTJcnNXnYAsbPNT6 P29ku9J9GVBpZHCc IRH9iXA9aD2usHuaaymh bGVmdDsgdmVydGljYWwt NBouW085ODIvmSrlTgXo qHd3O9GlImd4IFGj lLtoVY7hvSItEAnnNa5s jUsbgKwvGI7xJSKhfvmz a277CpZxo2yqOFYcfANt TUijTAC3Q28ua1W2 HQTsMJBgZKB9hLQ6jU7n bGlnbjogbGVmdDsgdmVy eUnfVDikIWpdE230TZZt cDsnPlBhdGllbnQg YBgiMQf1Z9QoAchlrJI+ IH20AAUiGQ16mACptWMr n3cwuHy8NuMtRVPhELX1 dHcoOFddb6QtJGKd U64mrGMdn8M9FNKkcHwy pXIrCcDxpYC1qQ1tLJbt vvuvk1prpixhJvtco3ph qb58iD66B74cPUzg ZHRoPSIzMCUiIHZhbGln oj4scG5lOb6+PGNvbCB3 oOO8cF8dZUQmTfW3ZMvo R248UdHweAHuLuuc w1tpt4heoYm0KjG5ERMm ajZhlQjpUSH2v0QlQj72 V29qCNrlKLVtEZPfBSMn LZWjbVhnyg2rfK8x Ii8+TXRhbSS5pGC2tD0o WiLvUnP5SXcuU756FqMp oZHxEkycS96zT9BnlUH+ XLKcJfl8HWOxpTus OL1syIMyNNktSh3bLKJ3 KdDfYqAsFEhkV9WiWLGi hweqxnqorLX3SPAiRNOy qT22Gt1kcEraLMJw zJQHiT7ywevha0uaxxvn PbBvXPKsIGv6CGu4JVHt jCelRaZdYKG1QqY3ZRB3 lTYszQ9phArdncnd dL8gF7QmVCVhswmuLz49 xU3nAbIiLcK9MOyuDpb+ AQ0DOQVOYFCDCHwZBARH GA25WR96vLCfb0M7 dGB6I5LeIVKjqxqvshqt kFF2JTYyOJKzeX34wRTe JGlfTk9ce7S7i534EYXd ZYAheQ02Vf3ehOhf XABqjKLYsW6rwjhkc3kj xnplFxMgNRGfOWp2GCz7 TOGayOpdJzIhYZE2SwY8 NYC5lQRixG4onMtd xupwvW0zCqz+MTIvMDUv EEf3PhycpVN+PHRkIHN0 iKeaGIuvYYHvfD1xEULj W3f3TlZtAdJ3FHwq Y5WdVISbsybaIb55pJ6w RtIjQyH6KOqeO9VyxgI9 WGFykOGjOGihFRI7A99t g1D1XMAfXRZbKCU2 bLS6eO2ksOojvqkqdRAq dDsgdmVydGljYWwtYWxp S948ZLUddUnlIfQ3BNmo SLGsGU45RZ26fJPf m1D9hOD2A8MuDHFcmlhd slqniNT3HHGzDBYsqS22 aGZyKDqjFp7cx6G0q672 MGAxFSViyV46Mm3z cBbeCZLriZTKbL1puikp f8zfpwvnLgIfTMJiMBs2 VNn0HDIwjKeuThBbUZR1 NaD3ZRT3eZGlnE6g qFwlcfmgqH0dUke+RkVN FNnIYW71PS48bXZoc0W3 bWA0M3LpVWXcnpgicgxu iBJ1FBRgDVPvsM73 jEYqTXlrMd9gs3U4v345 PDQiCRDtxI18Sw5tfMvp UMFyfPYEhA0dlbpln7by cjogIzAwMDAwMDt0 MJr1UHZnjHrgUlWgALD8 FuH5ZDI0eTUtjC5dqExb gujlaP0bIfn+N6YtYWT3 MVBzo685X1EhZaof dHI+MK72VPTyFD34lEWt lPAhx5jafDy2ZiBzFCDc AWF3oDqqCXefc9FkWLNy O68geOEyy1L3QHQp aIdbhBTpVfRqvZA3aP1h MKgsxlbxm7ftmsifOjgq l8rouy54fT22D88bYTes ZHRoPSIzMCUiIHZh jYtptn5hvJ9rNy9+PGNv zDF5cKT3zB2oZkWjXfH6 LNzfI780McKqwFUiZebc y3zua3ennOe5XpNd YLBjvcPnwYqqAMD3l1We Hn57D60oNVsxQLTnIDCr NOCdWDYmtWiocs0euQ0w Ii8+AL3lc2dhlb18 mA23nJP+THDzJTI7mQhf NThgSXLbzA5zAVujCnF2 XPIuBcMguK84xAEuJVon Ar2tuTbhyKrrEA6e TJQfstzzw569JkCni3fx GUNgmXIaEHmrYOT9E03p r3I0ADIsEAAxWNQ4vZM7 xG4jnZqioxorlSWy dDsgdmVydGljYWwtYWxp Y357POYcfTzuUmMsnRLx W1fswvVHVR5yNimgbBU+ SQYmQKN3rNwnAQod GBQzxT8xCYBlK6b2YsSy VdD5FMwpX9CsxcX0PWIg rVNcSVQvuJRLzK5yoqlt x5otxoxoSvJfYNKs OAw9ZPm7HOJmeJanWpTk EYQ3ZhL5QRW8rIPjoC4g vFlyrarxnL5uGon+RklO OjwvdGQ+PHRkIHN0 yLvfXVtsFWNbuB3rIGUo C9t5HeEhWgB5ICbeD5Om qnZ0KXOxvOUwEJMzvHXX vZ8okoxvp8rnepga QtNhDIEjMBm7DXw5TPFh jSecEdZwPFB9MlS7MZK4 hHOfsT7lhIkillaayR9j Oyc+TVJOOjwvdGQ+ GXTpPLJ4tThiFUqnUQRv pJ3xKIScQ9m3KbScAwS0 RDofS7UgivX7SKVenJXm SDYklQWFpJ3gyxvl h0aahbpkHsIfJNHgPZk4 FVf3JTFujBfaByMdLPZ1 MmW7HCH5hYRnbM3unKgx dwyorM9nEtu+UGF5 GEJ5EZ92FB25R4WxRaox dGFibGU+PHRhYmxlIHdp ZHRoPScxMDAlJyBzdHls SL8yOl0mUDFzMPRw bGx (more content not included)... [facility] C Bloodon 03-23-2023 C Blood No growth at [address] [facility] Comment on above: Performed By: #### [id number] #### [facility] (DEFAULT) [address] [place] [address] Cult,Bloodon 03-23-2023 Cult,Blood Specimen Description .BLOOD Special Requests R HAND 2ML Culture NO GROWTH 5 DAYS Report Status FINAL 03/23/2023 [facility] Comment on above: Performed By: #### R EJEC, HEPXA #### [facility] [address] [place] [id number] Corporate Counsel: Norman Blake MD Cult,Blood Specimen Description .BLOOD Special Requests L HAND 2ML Culture NO GROWTH 5 DAYS Report Status FINAL 03/23/2023 [facility] Comment on above: Performed By: #### Jam RODAS IOCAL #### [facility] [address] [place] [address] Corporate Counsel: Norman Blake MD Basic Metab w/rfx MGon 03-201 Potassium [Moles/Vol] 3.3 mmol/L Low 3.7-5.3 [facility] Comment on above: Performed By: #### Jam RODAS, IOCAL #### [employer] [address] [place] [address] Corporate Counsel: Norman Blake MD Anion gap [Moles/Vol] 8 mmol/L Low 9-17 [facility] Comment on above: Performed By: #### Jam RODAS, IOCAL #### [employer] [address] [place] [address] Corporate Counsel: Norman Blake MD Calcium [Mass/Vol] 7.3 mg/dL Low 8.6-10.4 [facility] Comment on above: Performed By: #### Jam RODAS, IOCAL #### [facility] [address] [place] [address] Corporate Counsel: Norman Blake MD Chloride [Moles/Vol] 100 mmol/L Normal 98-107 [facility] Comment on above: Performed By: #### Jam RODAS, IOCAL #### [facility] [place] [address] Corporate Counsel: Norman Blake MD CO2 [Moles/Vol] 28 mmol/L Normal 20-31 [facility] Comment on above: Performed By: #### Jam RODAS, IOCAL #### [facility] [address] [place] [address] Corporate Counsel: Norman Blake MD Creatinine [Mass/Vol] 0.4 mg/dL Low 0.5-0.9 [facility] Comment on above: Performed By: #### Jam RODAS, IOCAL #### [address] [id number] Corporate Counsel: Norman Blake MD GFR/1.73 sq M.predicted among non-blacks MDRD (S/P/Bld) [Vol rate/Area] mL/min/{1.73_m2} Normal >60 [facility] Comment on above: Result Comment: These [...] renal tubular secretion. Performed By: #### Jam RODAS, IOCAL #### [facility] [address] [place] [phone] Corporate Counsel: Norman Blake MD Glucose [Mass/Vol] 226 mg/dL High 70-99 [facility] Comment on above: Performed By: #### Jam PHILLIPSE, IOCAL #### [facility] [address] [place] [address] Corporate Counsel: Norman Blake MD Sodium [Moles/Vol] 136 mmol/L Normal 135-144 [facility] Comment on above: Performed By: #### Jam RODAS IOCAL #### [address] [address] Corporate Counsel: Norman Blake MD Urea nitrogen [Mass/Vol] 4 mg/dL Low 6-20 [facility] Comment on above: Performed By: #### Jam RODAS IOCAL #### [address] [address] Corporate Counsel: Norman Blake MD CBC with Diffon 03-20-2023 Abs. Basophil <0.03 Normal 0.00-0.20 [facility] Comment on above: Performed By: #### R EJEC, HEPXA #### [address] [address] Corporate Counsel: Norman Blake MD Abs. Eosinophil <0.03 Normal 0.00-0.44 [facility] Comment on above: Performed By: #### R EJEC, HEPXA #### [address] [address] Corporate Counsel: Norman Blake MD Abs.Imm.Granulocyte <0.03 Normal 0.00-0.30 [facility] Comment on above: Performed By: #### R EJEC, HEPXA #### [address] [address] Corporate Counsel: Norman Balke MD Abs.Neutrophil (Seg) 2.46 k/uL Normal 1.50-8.10 [facility] Comment on above: Performed By: #### R EJEC, HEPXA #### [address] [address] Corporate Counsel: Norman Blake MD Basophils/100 WBC (Bld) 0 % Normal 0-2 [facility] Comment on above: Performed By: #### R EJEC, HEPXA #### [place] [address] Corporate Counsel: Norman Blake MD Eosinophils/100 WBC (Bld) 0 % Low 1-4 [facility] Comment on above: Performed By: #### R EJEC, HEPXA #### [place] [address] Corporate Counsel: Norman Blake MD Erythrocyte distribution width (RBC) [Ratio] 14.7 % High 11.8-14.4 [facility] Comment on above: Performed By: #### R EJEC, HEPXA #### [place] [address] Corporate Counsel: Norman Blake MD Hematocrit (Bld) [Volume fraction] 30.8 % Low 36.3-47.1 [facility] Comment on above: Performed By: #### R EJEC, HEPXA #### [place] [address] Corporate Counsel: Norman Blake MD Hemoglobin (Bld) [Mass/Vol] 9.8 g/dL Low 11.9-15.1 [facility] Comment on above: Performed By: #### R EJEC, HEPXA #### [place] [address] Corporate Counsel: Norman Blake MD Immature granulocytes/100 WBC (Bld) 0 % Normal 0 [facility] Comment on above: Performed By: #### R EJEC, HEPXA #### [place] [address] Corporate Counsel: Norman Blake MD Lymphocytes (Bld) [#/Vol] 1.66 10*3/uL Normal 1.10-3.70 [facility] Comment on above: Performed By: #### R EJEC, HEPXA #### [address] [address] Corporate Counsel: Norman Blake MD Lymphocytes/100 WBC (Bld) 38 % Normal 24-43 [facility] Comment on above: Performed By: #### R EJEC, HEPXA #### [place] [address] Corporate Counsel: Norman Blake MD MCH (RBC) [Entitic mass] 24.8 pg Low 25.2-33.5 [facility] Comment on above: Performed By: #### R EJEC, HEPXA #### [place] [address] Corporate Counsel: Norman Blake MD MCHC (RBC) [Mass/Vol] 31.8 g/dL Normal 28.4-34.8 [facility] Comment on above: Performed By: #### R EJEC, HEPXA #### [place] [address] Corporate Counsel: Norman Blake MD MCV (RBC) [Entitic vol] 78.0 fL Low 82.6-102.9 [facility] Comment on above: Performed By: #### R EJEC, HEPXA #### [place] [address] Corporate Counsel: Norman Blake MD Monocytes (Bld) [#/Vol] 0.25 10*3/uL Normal 0.10-1.20 [facility] Comment on above: Performed By: #### R EJEC, HEPXA #### [address] [address] Corporate Counsel: Norman Blake MD Monocytes/100 WBC (Bld) 6 % Normal 3-12 [facility] Comment on above: Performed By: #### R EJEC, HEPXA #### [address] [address] Corporate Counsel: Norman Blake MD Neutrophil (Seg) 56 % Normal 36-65 [facility] Comment on above: Performed By: #### R EJEC, HEPXA #### [address] [address] Corporate Counsel: Norman Blake MD NRBC Automated 0.0 per 100 WBC Normal 0.0 [facility] Comment on above: Performed By: #### R EJEC, HEPXA #### [address] [address] Corporate Counsel: Norman Blake MD Platelet mean volume (Bld) [Entitic vol] 10.5 fL Normal 8.1-13.5 [facility] Comment on above: Performed By: #### R EJEC, HEPXA #### [address] [address] [employer] Counsel: Norman Blake MD Platelets (Bld) [#/Vol] 154 10*3/uL Normal 138-453 [facility] Comment on above: Performed By: #### R EJEC, HEPXA #### [address] [address] [employer] Counsel: Norman Blake MD RBC (Bld) [#/Vol] 3.95 10*6/uL Normal 3.95-5.11 [facility] Comment on above: Performed By: #### R EJEC, HEPXA #### [address] [address] [employer] Counsel: Norman Blake MD RBC morphology finding Nom (Bld) ANISOCYTOSIS PRESENT Normal [facility] Comment on above: Result Comment: MICR OCYTOSIS PRESENT Performed By: #### R EJEC, HEPXA #### [address] [address] Corporate Counsel: Norman Blake MD WBC (Bld) [#/Vol] 4.4 10*3/uL Normal 3.5-11.3 [facility] Comment on above: Performed By: #### R EJEC, HEPXA #### [facility] [address] [place] [address] [employer] Counsel: Norman Blake MD Heparin Anti-Xaon 03-20-2023 Heparin Anti-Xa 0.46 IU/L Normal [facility] Comment on above: Performed By: #### R YURI, HEPXA #### [facility] [address] [place] [address] [employer] Counsel: Norman Blake MD Magnesiumon 03-20-2023 Magnesium [Mass/Vol] 2.0 mg/dL Normal 1.6-2.6 [facility] Comment on above: Performed By: #### D CLARK, IOCAL #### [facility] [address] [place] [address] [employer] Counsel: Norman Blake MD Troponinon 03-20-2023 Troponin, High Sens 295 ng/L Critically high 0-14 [facility] Comment on above: Result Comment: High Sensitivity Troponin values cannot be compared with other Troponin methodologies. Previous Alert Value Reported Performed By: #### D CLARK, IOCAL #### [address] [address] [employer] Counsel: Norman Blake MD Troponin, High Sens 308 ng/L Critically high 0-14 [facility] Comment on above: Result Comment: High Sensitivity Troponin values cannot be compared with other Troponin methodologies. Previous Alert Value Reported Performed By: #### R ERICAEC, HEPXA #### [facility] [address] [place] [address] [employer] Counsel: Norman Blake MD Basic Metabolic Profon 03-19 Potassium [Moles/Vol] 2.7 mmol/L Critically low 3.7-5.3 [facility] Comment on above: Performed By: #### H EPXA, TROPI, CDP, BMP #### [address] [address] [employer] Counsel: Norman Blake MD Anion gap [Moles/Vol] 8 mmol/L Low 9-17 [facility] Comment on above: Performed By: #### H EPXA, TROPI, CDP, BMP #### [address] [address] [employer] Counsel: Norman Blake MD Calcium [Mass/Vol] 6.0 mg/dL Low 8.6-10.4 [facility] Comment on above: Performed By: #### H EPXA, TROPI, CDP, BMP #### [address] [address] Corporate Counsel: Norman Blake MD Chloride [Moles/Vol] 101 mmol/L Normal 98-107 [facility] Comment on above: Performed By: #### H EPXA, TROPI, CDP, BMP #### [address] [address] [employer] Counsel: Norman Blake MD CO2 [Moles/Vol] 25 mmol/L Normal 20-31 [facility] Comment on above: Performed By: #### H EPXA, TROPI, CDP, BMP #### [address] [address] [employer] Counsel: Norman Blake MD Creatinine [Mass/Vol] 0.3 mg/dL Low 0.5-0.9 [facility] Comment on above: Performed By: #### H EPXA, TROPI, CDP, BMP #### [facility] [address] [place] [address] [employer] Counsel: Norman Blake MD GFR/1.73 sq M.predicted among non-blacks MDRD (S/P/Bld) [Vol rate/Area] mL/min/{1.73_m2} Normal >60 [facility] Comment on above: Result Comment: These [...] #### H EPXA, TROPI, CDP, BMP #### [employer] [address] [place] [address] [employer] Counsel: Norman Blake MD Glucose [Mass/Vol] 156 mg/dL High 70-99 [facility] Comment on above: Performed By: #### H EPXA, TROPI, CDP, BMP #### [facility] [address] [place] [phone] [employer] Counsel: Norman Blake MD Sodium [Moles/Vol] 134 mmol/L Low 135-144 [facility] Comment on above: Performed By: #### H EPXA, TROPI, CDP, BMP #### [facility] [address] [place] [address] [employer] Counsel: Norman Blake MD Urea nitrogen [Mass/Vol] 4 mg/dL Low 6-20 [facility] Comment on above: Performed By: #### H EPXA, TROPI, CDP, BMP #### [employer] [address] [place] [address] [employer] Counsel: Norman Blake MD Potassium [Moles/Vol] 2.5 mmol/L Critically low 3.7-5.3 [facility] Comment on above: Performed By: #### H EPXA, TROPI, CDP, BMP #### [employer] [address] [place] [address] [employer] Counsel: Norman Blake MD Anion gap [Moles/Vol] 7 mmol/L Low 9-17 [facility] Comment on above: Performed By: #### H EPXA, TROPI, CDP, BMP #### [facility] [address] [place] [address] [employer] Counsel: Norman Blake MD Calcium [Mass/Vol] 6.0 mg/dL Low 8.6-10.4 [facility] Comment on above: Performed By: #### H EPXA, TROPI, CDP, BMP #### [employer] [address] [place] [address] [employer] Counsel: Norman Blake MD Chloride [Moles/Vol] 100 mmol/L Normal 98-107 [facility] Comment on above: Performed By: #### H EPXA, TROPI, CDP, BMP #### [facility] [address] [place] [address] [phone] [employer] Counsel: Norman Blake MD CO2 [Moles/Vol] 23 mmol/L Normal 20-31 [facility] Comment on above: Performed By: #### H EPXA, TROPI, CDP, BMP #### [employer] [address] [place] [address] [employer] Counsel: Norman Blake MD Creatinine [Mass/Vol] 0.4 mg/dL Low 0.5-0.9 [facility] Comment on above: Performed By: #### H EPXA, TROPI, CDP, BMP #### [employer] [address] [place] [address] [employer] Counsel: Norman Blake MD GFR/1.73 sq M.predicted among non-blacks MDRD (S/P/Bld) [Vol rate/Area] mL/min/{1.73_m2} Normal >60 [facility] Comment on above: Result Comment: These [...] #### H EPXA, TROPI, CDP, BMP #### [employer] [address] [place] [phone] [employer] Counsel: Norman Blake MD Glucose [Mass/Vol] 240 mg/dL High 70-99 [facility] Comment on above: Performed By: #### H EPXA, TROPI, CDP, BMP #### [employer] [address] [place] [address] [employer] Counsel: Norman Blake MD Sodium [Moles/Vol] 130 mmol/L Low 135-144 [facility] Comment on above: Performed By: #### H EPXA, TROPI, CDP, BMP #### [employer] [address] [place] [address] [employer] Counsel: Norman Blake MD Urea nitrogen [Mass/Vol] 6 mg/dL Normal 6-20 [facility] Comment on above: Performed By: #### H EPXA, TROPI, CDP, BMP #### [employer] [address] [place] [address] [employer] Counsel: Norman Blake MD C Urineon 03-19-2023 C Urine Urine Culture ordered as a result of parameters set on specific urine dip and urine microsopic results. >3 Organisms Consistent with Contamination Recollection suggested. Normal [facility] Comment on above: Performed By: #### 1 [id number] ####[facility] (DEFAULT)[address] [place] [address] CBC with Diffon 03-19-2023 Abs. Basophil <0.03 Normal 0.00-0.20 [facility] Comment on above: Performed By: #### H EPXA, TROPI, CDP, BMP #### [address] [address] [employer] Counsel: Norman Blake MD Abs. Eosinophil <0.03 Normal 0.00-0.44 [facility] Comment on above: Performed By: #### H EPXA, TROPI, CDP, BMP #### [address] [address] [employer] Counsel: Norman Blake MD Abs.Imm.Granulocyte <0.03 Normal 0.00-0.30 [facility] Comment on above: Performed By: #### H EPXA, TROPI, CDP, BMP #### [address] [address] [employer] Counsel: Norman Blake MD Abs.Neutrophil (Seg) 5.63 k/uL Normal 1.50-8.10 [facility] Comment on above: Performed By: #### H EPXA, TROPI, CDP, BMP #### [address] [address] [employer] Counsel: Norman Blake MD Basophils/100 WBC (Bld) 0 % Normal 0-2 [facility] Comment on above: Performed By: #### H EPXA, TROPI, CDP, BMP #### [address] [address] [employer] Counsel: Norman Blake MD Eosinophils/100 WBC (Bld) 0 % Low 1-4 [facility] Comment on above: Performed By: #### H EPXA, TROPI, CDP, BMP #### [address] [address] Corporate Counsel: Norman Blake MD Erythrocyte distribution width (RBC) [Ratio] 14.0 % Normal 11.8-14.4 [facility] Comment on above: Performed By: #### H EPXA, TROPI, CDP, BMP #### [facility] [address] [place] [address] Corporate Counsel: Norman Blake MD Hematocrit (Bld) [Volume fraction] 31.0 % Low 36.3-47.1 [facility] Comment on above: Performed By: #### H EPXA, TROPI, CDP, BMP #### [facility] [address] [place] [address] Corporate Counsel: Norman Blake MD Hemoglobin (Bld) [Mass/Vol] 10.9 g/dL Low 11.9-15.1 [facility] Comment on above: Performed By: #### H EPXA, TROPI, CDP, BMP #### [facility] [address] [place] [address] Corporate Counsel: Norman Blake MD Immature granulocytes/100 WBC (Bld) 0 % Normal 0 [facility] Comment on above: Performed By: #### H EPXA, TROPI, CDP, BMP #### [facility] [address] [place] [address] Corporate Counsel: Norman Blake MD Lymphocytes (Bld) [#/Vol] 1.34 10*3/uL Normal 1.10-3.70 [facility] Comment on above: Performed By: #### H EPXA, TROPI, CDP, BMP #### [facility] [address] [place] [address] Corporate Counsel: Norman Blake MD Lymphocytes/100 WBC (Bld) 18 % Low 24-43 [facility] Comment on above: Performed By: #### H EPXA, TROPI, CDP, BMP #### [facility] [address] [place] [address] Corporate Counsel: Norman Blake MD MCH (RBC) [Entitic mass] 25.8 pg Normal 25.2-33.5 [facility] Comment on above: Performed By: #### H EPXA, TROPI, CDP, BMP #### [facility] [address] [place] [address] Corporate Counsel: Norman Blake MD MCHC (RBC) [Mass/Vol] 35.2 g/dL High 28.4-34.8 [facility] Comment on above: Performed By: #### H EPXA, TROPI, CDP, BMP #### [address] [address] Corporate Counsel: Norman Blake MD MCV (RBC) [Entitic vol] 73.3 fL Low 82.6-102.9 [facility] Comment on above: Performed By: #### H EPXA, TROPI, CDP, BMP #### [address] [address] Corporate Counsel: Norman Blake MD Monocytes (Bld) [#/Vol] 0.41 10*3/uL Normal 0.10-1.20 [facility] Comment on above: Performed By: #### H EPXA, TROPI, CDP, BMP #### [address] [address] Corporate Counsel: Norman Blake MD Monocytes/100 WBC (Bld) 6 % Normal 3-12 [facility] Comment on above: Performed By: #### H EPXA, TROPI, CDP, BMP #### [place] [address] Corporate Counsel: Norman Blake MD Neutrophil (Seg) 76 % High 36-65 [facility] Comment on above: Performed By: #### H EPXA, TROPI, CDP, BMP #### [address] [address] Corporate Counsel: Norman Blake MD NRBC Automated 0.0 per 100 WBC Normal 0.0 [facility] Comment on above: Performed By: #### H EPXA, TROPI, CDP, BMP #### [facility] [address] [place] [address] Corporate Counsel: Norman Blake MD Platelet mean volume (Bld) [Entitic vol] 9.5 fL Normal 8.1-13.5 [facility] Comment on above: Performed By: #### H EPXA, TROPI, CDP, BMP #### [address] [address] Corporate Counsel: Norman Blake MD Platelets (Bld) [#/Vol] 189 10*3/uL Normal 138-453 [facility] Comment on above: Performed By: #### H EPXA, TROPI, CDP, BMP #### [address] [address] Corporate Counsel: Norman Blake MD RBC (Bld) [#/Vol] 4.23 10*6/uL Normal 3.95-5.11 [facility] Comment on above: Performed By: #### H EPXA, TROPI, CDP, BMP #### [address] [address] Corporate Counsel: Norman Blake MD RBC morphology finding Nom (Bld) MICROCYTOSIS PRESENT Normal [facility] Comment on above: Performed By: #### H EPXA, TROPI, CDP, BMP #### [address] [address] Corporate Counsel: Norman Blake MD WBC (Bld) [#/Vol] 7.4 10*3/uL Normal 3.5-11.3 [facility] Comment on above: Performed By: #### H EPXA, TROPI, CDP, BMP #### [facility] [address] [place] [address] Corporate Counsel: Norman Blake MD Abs. Basophil <0.03 Normal 0.00-0.20 [facility] Comment on above: Performed By: #### H EPXA, TROPI, CDP, BMP #### [facility] [address] [place] [address] Corporate Counsel: Norman Blake MD Abs. Eosinophil <0.03 Normal 0.00-0.44 [facility] Comment on above: Performed By: #### H EPXA, TROPI, CDP, BMP #### [facility] [address] [place] [address] Corporate Counsel: Norman Blake MD Abs.Imm.Granulocyte <0.03 Normal 0.00-0.30 [facility] Comment on above: Performed By: #### H EPXA, TROPI, CDP, BMP #### [facility] [address] [place] [address] Corporate Counsel: Norman Blake MD Abs.Neutrophil (Seg) 7.00 k/uL Normal 1.50-8.10 [facility] Comment on above: Performed By: #### H EPXA, TROPI, CDP, BMP #### [facility] [address] [place] [address] Corporate Counsel: Norman Blake MD Basophils/100 WBC (Bld) 0 % Normal 0-2 [facility] Comment on above: Performed By: #### H EPXA, TROPI, CDP, BMP #### [facility] [address] [place] [address] Corporate Counsel: Norman Blake MD Eosinophils/100 WBC (Bld) 0 % Low 1-4 [facility] Comment on above: Performed By: #### H EPXA, TROPI, CDP, BMP #### [facility] [address] [place] [address] Corporate Counsel: Norman Blake MD Erythrocyte distribution width (RBC) [Ratio] 14.2 % Normal 11.8-14.4 [facility] Comment on above: Performed By: #### H EPXA, TROPI, CDP, BMP #### [facility] [address] [place] [address] Corporate Counsel: Norman Blake MD Hematocrit (Bld) [Volume fraction] 31.1 % Low 36.3-47.1 [facility] Comment on above: Performed By: #### H EPXA, TROPI, CDP, BMP #### [facility] [address] [place] [address] Corporate Counsel: Norman Blake MD Hemoglobin (Bld) [Mass/Vol] 10.8 g/dL Low 11.9-15.1 [facility] Comment on above: Performed By: #### H EPXA, TROPI, CDP, BMP #### [facility] [address] [place] [address] Corporate Counsel: Norman Blake MD Immature granulocytes/100 WBC (Bld) 0 % Normal 0 [facility] Comment on above: Performed By: #### H EPXA, TROPI, CDP, BMP #### [facility] [address] [place] [address] Corporate Counsel: Norman Blake MD Lymphocytes (Bld) [#/Vol] 0.85 10*3/uL Low 1.10-3.70 [facility] Comment on above: Performed By: #### H EPXA, TROPI, CDP, BMP #### [facility] [address] [place] [address] Corporate Counsel: Norman Blake MD Lymphocytes/100 WBC (Bld) 10 % Low 24-43 [facility] Comment on above: Performed By: #### H EPXA, TROPI, CDP, BMP #### [facility] [address] [place] [address] Corporate Counsel: Norman Blake MD MCH (RBC) [Entitic mass] 25.4 pg Normal 25.2-33.5 [facility] Comment on above: Performed By: #### H EPXA, TROPI, CDP, BMP #### [address] [address] Corporate Counsel: Norman Blake MD MCHC (RBC) [Mass/Vol] 34.7 g/dL Normal 28.4-34.8 [facility] Comment on above: Performed By: #### H EPXA, TROPI, CDP, BMP #### [address] [address] Corporate Counsel: Norman Blake MD MCV (RBC) [Entitic vol] 73.2 fL Low 82.6-102.9 [facility] Comment on above: Performed By: #### H EPXA, TROPI, CDP, BMP #### [address] [address] Corporate Counsel: Norman Blake MD Monocytes (Bld) [#/Vol] 0.44 10*3/uL Normal 0.10-1.20 [facility] Comment on above: Performed By: #### H EPXA, TROPI, CDP, BMP #### [place] [address] Corporate Counsel: Norman Blake MD Monocytes/100 WBC (Bld) 5 % Normal 3-12 [facility] Comment on above: Performed By: #### H EPXA, TROPI, CDP, BMP #### [address] [address] Corporate Counsel: Norman Blake MD Neutrophil (Seg) 84 % High 36-65 [facility] Comment on above: Performed By: #### H EPXA, TROPI, CDP, BMP #### [address] [address] Corporate Counsel: Norman Blake MD NRBC Automated 0.0 per 100 WBC Normal 0.0 [facility] Comment on above: Performed By: #### H EPXA, TROPI, CDP, BMP #### [facility] [place] [address] Corporate Counsel: Norman Blake MD Platelet mean volume (Bld) [Entitic vol] 9.5 fL Normal 8.1-13.5 [facility] Comment on above: Performed By: #### H EPXA, TROPI, CDP, BMP #### [facility] [address] [place] [address] Corporate Counsel: Norman Blake MD Platelets (Bld) [#/Vol] 194 10*3/uL Normal 138-453 [facility] Comment on above: Performed By: #### H EPXA, TROPI, CDP, BMP #### [address] [address] Corporate Counsel: Norman Blake MD RBC (Bld) [#/Vol] 4.25 10*6/uL Normal 3.95-5.11 [facility] Comment on above: Performed By: #### H EPXA, TROPI, CDP, BMP #### [facility] [address] [place] [address] Corporate Counsel: Norman Blake MD RBC morphology finding Nom (Bld) MICROCYTOSIS PRESENT Normal [facility] Comment on above: Performed By: #### H EPXA, TROPI, CDP, BMP #### [facility] [address] [place] [address] Corporate Counsel: Norman Blake MD WBC (Bld) [#/Vol] 8.3 10*3/uL Normal 3.5-11.3 [facility] Comment on above: Performed By: #### H EPXA, TROPI, CDP, BMP #### [facility] [address] [place] [address] [employer] Counsel: Norman Blake MD Cult,Urineon 03-19-2023 Cult,Urine Specimen Description .CLEAN CATCH URINE Culture NO GROWTH Report Status FINAL 03/19/2023 Normal [facility] Comment on above: Performed By: #### U RC #### [facility] [address] [place] [address] Corporate Counsel: Norman Blake MD Electrolyteson 03-19-2023 Anion gap [Moles/Vol] 10 mmol/L Normal 9-17 [facility] Comment on above: Performed By: #### Jam RODAS, IOCAL #### [facility] [address] [place] [address] Corporate Counsel: Norman Blake MD Chloride [Moles/Vol] 94 mmol/L Low 98-107 [facility] Comment on above: Performed By: #### Jam RODAS, IOCAL #### [facility] [address] [place] [address] Corporate Counsel: Norman Blake MD CO2 [Moles/Vol] 25 mmol/L Normal 20- [facility] Comment on above: Performed By: #### Jam RODAS, IOCAL #### [facility] [address] [place] [address] Corporate Counsel: Norman Blake MD Potassium [Moles/Vol] 3.5 mmol/L Low 3.7-5.3 [facility] Comment on above: Performed By: #### Jam RODAS, IOCAL #### [facility] [address] [place] [address]226 Corporate Counsel: Norman Blake MD Sodium [Moles/Vol] 129 mmol/L Low 135-144 [facility] Comment on above: Performed By: #### Jam RODAS, IOCAL #### [facility] [address] [place] [address] Corporate Counsel: Norman Blake MD Anion gap [Moles/Vol] 11 mmol/L Normal 9-17 [facility] Comment on above: Performed By: #### H EPXA, TROPI, CDP, BMP #### [facility] [address] [place] [address] Corporate Counsel: Norman Blake MD Chloride [Moles/Vol] 95 mmol/L Low 98-107 [facility] Comment on above: Performed By: #### H EPXA, TROPI, CDP, BMP #### [facility] [address] [place] [address] Corporate Counsel: Norman Blake MD CO2 [Moles/Vol] 24 mmol/L Normal 20-31 [facility] Comment on above: Performed By: #### H EPXA, TROPI, CDP, BMP #### [facility] [address] [place] [address] Corporate Counsel: Norman Blake MD Potassium [Moles/Vol] 3.4 mmol/L Low 3.7-5.3 [facility] Comment on above: Performed By: #### H EPXA, TROPI, CDP, BMP #### [facility] [address] [place] [address] Corporate Counsel: Norman Blake MD Sodium [Moles/Vol] 130 mmol/L Low 135-144 [facility] Comment on above: Performed By: #### H EPXA, TROPI, CDP, BMP #### [facility] [address] [place] [address] Corporate Counsel: Norman Blake MD Heparin Anti-Xaon 03-19-2023 Heparin Anti-Xa 0.37 IU/L [facility] Comment on above: Performed By: #### R EJEC, HEPXA #### [facility] [address] [place] [address] Corporate Counsel: Norman Blake MD Heparin Anti-Xa 0.40 IU/L [facility] Comment on above: Performed By: #### H EPXA, TROPI, CDP, BMP #### [facility] [address] [place] [address] Corporate Counsel: Norman Blake MD Heparin Anti-Xa 0.16 IU/L Normal [facility] Comment on above: Performed By: #### H EPXA, TROPI, CDP, BMP #### [facility] [address] [place] [address] Corporate Counsel: Norman Blake MD Heparin Anti-Xa 0.12 IU/L Normal [facility] Comment on above: Performed By: #### H EPXA, TROPI, CDP, BMP #### [facility] [address] [place] [address] Corporate Counsel: Norman Blake MD MRSA, DNA, Nasalon MRSA, DNA, Nasal Negative Normal NEG [facility] Comment on above: Result Comment: NEGA TIVE: MRSA DNA not detected by nucleic acid amplification. Results should be used as an adjunct to nosocomial control efforts to identify patients needing enhanced precautions. The test is not intended to identify patients with staphylococcal infections. Results should not be used to guide or monitor treatment for MRSA infections. Performed By: #### Jam RODAS IOCAL #### [facility] [address] [place] [address] Corporate Counsel: Norman Blake MD Magnesiumon 03-19-2023 Magnesium [Mass/Vol] 1.9 mg/dL Normal 1.6-2.6 [facility] Comment on above: Performed By: #### Jam RODAS IOCAL #### [facility] [address] [place] [address] Corporate Counsel: Norman Blake MD Magnesium [Mass/Vol] 1.9 mg/dL Normal 1.6-2.6 [facility] Comment on above: Performed By: #### H EPXA, TROPI, CDP, BMP #### [facility] [address] [place] [address] Corporate Counsel: Norman Blake MD Magnesium [Mass/Vol] 2.0 mg/dL Normal 1.6-2.6 [facility] Comment on above: Performed By: #### R EJEC, HEPXA #### [facility] [address] [place] [address] Corporate Counsel: Norman Blake MD Magnesium [Mass/Vol] 2.0 mg/dL Normal 1.6-2.6 [facility] Comment on above: Performed By: #### Jam RODAS IOCAL #### [facility] [address] [place] [address] Corporate Counsel: Norman Blake MD Magnesium [Mass/Vol] 1.6 mg/dL Normal 1.6-2.6 [facility] Comment on above: Performed By: #### H EPXA, TROPI, CDP, BMP #### [facility] [address] [place] [address] Corporate Counsel: Norman Blake MD Phosphorus, Inorg.on 023 Phosphorus, Inorg. 1.7 mg/dL Low 2.6-4.5 [facility] Comment on above: Performed By: #### Jam RODAS IOCAL #### [facility] [address] [place] [address] Corporate Counsel: Norman Blake MD Phosphorus, Inorg. 1.5 mg/dL Low 2.6-4.5 [facility] Comment on above: Performed By: #### H EPXA, TROPI, CDP, BMP #### [facility] [address] [place] [address] Corporate Counsel: Norman Blake MD Phosphorus, Inorg. 1.3 mg/dL Low 2.6-4.5 [facility] Comment on above: Performed By: #### Jose EJEC, HEPXA #### [facility] [address] [place] [address] Corporate Counsel: Norman Blake MD Phosphorus, Inorg. 1.1 mg/dL Low 2.6-4.5 [facility] Comment on above: Performed By: #### D CLARK, IOCAL #### [facility] [address] [place] [address]10 Corporate Counsel: Norman Blake MD Phosphorus, Inorg. 0.7 mg/dL Critically low 2.6-4.5 [facility] Comment on above: Performed By: #### H EPXA, TROPI, CDP, BMP #### [facility] [address] [place] [address] Corporate Counsel: Norman Blake MD Troponinon 03-19-2023 Troponin, High Sens 328 ng/L Critically high 0-14 [facility] Comment on above: Result Comment: High Sensitivity Troponin values cannot be compared with other Troponin methodologies. Previous Alert Value Reported Performed By: #### Jam RODAS IOCAL #### [facility] [address] [place] [address] Corporate Counsel: Norman Blake MD Troponin, High Sens 389 ng/L Critically high 0-14 [facility] Comment on above: Result Comment: High Sensitivity Troponin values cannot be compared with other Troponin methodologies. Previous Alert Value Reported Performed By: #### H EPXA, TROPI, CDP, BMP #### [facility] [address] [place] [address] Corporate Counsel: Norman Blake MD Troponin, High Sens 481 ng/L Critically high 0-14 [facility] Comment on above: Result Comment: High Sensitivity Troponin values cannot be compared with other Troponin methodologies. Previous Alert Value Reported Performed By: #### H EPXA, TROPI, CDP, BMP #### [facility] [place] [address] Corporate Counsel: Norman Blake MD Troponin, High Sens 649 ng/L Critically high 0-14 [facility] Comment on above: Result Comment: High Sensitivity Troponin values cannot be compared with other Troponin methodologies. Previous Alert Value Reported Performed By: #### H EPXA, TROPI, CDP, BMP #### [facility] [address] [place] [address] Corporate Counsel: Norman Blake MD Venous Blood Gaseson 023 Body Temp. 37.0 Normal [facility] Comment on above: Performed By: #### D CLARK, IOCAL #### [facility] [address] [place] [address] Corporate Counsel: Norman Blake MD Carboxy Hgb 1.1 % Normal 0-5 [facility] Comment on above: Result Comment: Reference Range: Non-Smokers 0-2% Average Smoker 2-4% Heavy Smoker <10% Performed By: #### D CLARK, IOCAL #### [facility] [address] [place] [address] Corporate Counsel: Norman Blake MD FIO2 Unknown Normal [facility] Comment on above: Performed By: #### D CLARK, IOCAL #### [facility] [address] [place] [address] Corporate Counsel: Norman Blake MD HCO3 (Bld) [Moles/Vol] 25.9 mmol/L Normal 24-30 [facility] Comment on above: Performed By: #### Jam RODAS, IOCAL #### [facility] [address] [place] [address]167 Corporate Counsel: Norman Blake MD Oxygen saturation in Blood 97.3 % High 60.0-85.0 [facility] Comment on above: Performed By: #### D CLARK, IOCAL #### [facility] [address] [place] [address] 85925 Corporate Counsel: Norman Blake MD pCO2 40.3 mm Hg Normal 39-55 [facility] Comment on above: Performed By: #### Jam CLARK, IOCAL #### [facility] [address] [place] [address] 52983 Corporate Counsel: Norman Blake MD pH (Bld) 7.424 [pH] High 7.320-7.420 [facility] Comment on above: Performed By: #### D CLARK, IOCAL #### [facility] [address] [place] [address] 71480 Corporate Counsel: Norman Blake MD pO2 128.0 mm Hg High 30-50 [facility] Comment on above: Performed By: #### D CLARK IOCAL #### [facility] [address] [place] [address]396 Corporate Counsel: Norman Blake MD Positive Base Excess 1.8 mmol/L Normal 0.0-2.0 [facility] Comment on above: Performed By: #### Jam RODAS IOCAL #### [facility] [address] [place] [address]370 Corporate Counsel: Norman Blake MD APTTon 03-18-2023 aPTT Coag (Bld) [Time] 20.5 s Low 23.0-36.5 [facility] Comment on above: Result Comment: IV Heparin Therapy Range: 66.0-92.0 sec Performed By: #### R EJEC, HEPXA #### [facility] [address] [place] [address]22 Corporate Counsel: Norman Blake MD Arterial Blood Gas Standardo n 03-18-2023 Cami Test Art Positive Normal [facility] Comment on above: Performed By: #### 4 [id number] #### [facility] (DEFAULT) [address] [place] [address] Breakpoint Hemo Normal [facility] Comment on above: Performed By: #### 4 [id number] #### [facility] (DEFAULT) [address] [place] [address] 52963 Device Room Air Normal [facility] Comment on above: Performed By: #### 4 [id number] #### [facility] (DEFAULT) [address] [place] [address]97 Fio2 Art 21.0 % Normal 21.0-100.0 [facility] Comment on above: Performed By: #### 4 [id number] #### [facility] (DEFAULT) [address] [place] [address] 48712 Oxygen saturation in Blood 96.9 % Normal 95.0-100.0 [facility] Comment on above: Performed By: #### 4 [id number] #### [facility] (DEFAULT) [address] [place] [address] 16459 pH Art 6.89 Critically abnormal 7.37-7.44 [facility] Comment on above: Result Comment: Crit ical pH results and PCO2 result will not calculate due to it being < 9.5 results given to Radha Cintron @2318 03/18/2023 per Anjana Garcia [employer]. RBV Performed By: #### 4 [id number] #### [facility] (DEFAULT) [address] [place] [address] 11575 pO2 Art 144 mmHg High 75-100 [facility] Comment on above: Performed By: #### 4 [id number] #### [facility] (DEFAULT) [address] [place] [address] 41470 Puncture Site Right Radial Normal [facility] Comment on above: Performed By: #### 4 [id number] #### [facility] (DEFAULT) [address] [place] [address] Rate: 38 Invalid Interpretation Code [facility] Comment on above: Performed By: #### 4 [id number] #### [facility] (DEFAULT) [address] [place] [address] 31098 BNP.on 03-18-2023 Natriuretic peptide B (Bld) [Mass/Vol] 170.0 pg/mL High 0.0-100.0 [facility] Comment on above: Result Comment: BNP results greater than 100 pg/mL are considered abnormal and suggestive of patients with CHF. Higher BNP concentrations measured in the first 72 hours after an acute coronary syndorme are associated with an increased risk of , myocardial infarction, and CHF. Performed By: #### 3 [id number], [id number] ####[facility] ([facility] [place] [address] Basic Metabolic Profon 03-18 Potassium [Moles/Vol] 2.2 mmol/L Critically low 3.7-5.3 [facility] Comment on above: Performed By: #### Jam RODAS IOCAL #### [facility] [address] [place] [address] 57189 Corporate Counsel: Norman Blake MD Anion gap [Moles/Vol] 11 mmol/L Normal 9-17 [facility] Comment on above: Performed By: #### Jam RODAS, IOCAL #### [facility] [address] [place] [address] 11628 Corporate Counsel: Norman Blake MD Calcium [Mass/Vol] 6.4 mg/dL Low 8.6-10.4 [facility] Comment on above: Performed By: #### Jam RODAS IOCAL #### [facility] [address] [place] [address] 46548 Corporate Counsel: Norman Blake MD Chloride [Moles/Vol] 101 mmol/L Normal 98-107 [facility] Comment on above: Performed By: #### Jam RODAS IOCAL #### [facility] [address] [place] [address] 92636 Corporate Counsel: Norman Blake MD CO2 [Moles/Vol] 19 mmol/L Low 20-31 [facility] Comment on above: Performed By: #### Jam RODAS, IOCAL #### [facility] [address] [place] [address] 46431 Corporate Counsel: Norman Blake MD Creatinine [Mass/Vol] 0.4 mg/dL Low 0.5-0.9 [facility] Comment on above: Performed By: #### Jam RODAS IOCAL #### [facility] [address] [place] [address] 51944 Corporate Counsel: Norman Blake MD GFR/1.73 sq M.predicted among non-blacks MDRD (S/P/Bld) [Vol rate/Area] mL/min/{1.73_m2} Normal >60 [facility] Comment on above: Result Comment: These [...] Performed By: #### Jam RODAS IOCAL #### [facility] [address] [place] [address] 23330 Corporate Counsel: Norman Blake MD Glucose [Mass/Vol] 149 mg/dL High 70-99 [facility] Comment on above: Performed By: #### Jam RODAS IOCAL #### [facility] [address] [place] [address] 58600 Corporate Counsel: Norman Blake MD Sodium [Moles/Vol] 131 mmol/L Low 135-144 [facility] Comment on above: Performed By: #### Jam RODAS IOCAL #### [facility] [address] [place] [address] 36295 Corporate Counsel: Norman Blake MD Urea nitrogen [Mass/Vol] 8 mg/dL Normal 6-20 [facility] Comment on above: Performed By: #### Jam RODAS IOCAL #### [facility] [address] [place] [address] 66492 Corporate Counsel: Norman Blake MD Potassium [Moles/Vol] 2.5 mmol/L Critically low 3.7-5.3 [facility] Comment on above: Result Comment: TEST CONFIRMED Performed By: #### R EJEC, HEPXA #### [facility] [address] [place] [address] 20565 Corporate Counsel: Norman Blake MD Anion gap [Moles/Vol] 12 mmol/L Normal 9-17 [facility] Comment on above: Performed By: #### R EJEC, HEPXA #### [facility] [address] [place] [address] 50423 Corporate Counsel: Norman Blake MD Calcium [Mass/Vol] 6.5 mg/dL Low 8.6-10.4 [facility] Comment on above: Performed By: #### R EJEC, HEPXA #### [facility] [address] [place] [address] 36646 Corporate Counsel: Norman Blake MD Chloride [Moles/Vol] 104 mmol/L Normal 98-107 [facility] Comment on above: Performed By: #### R EJEC, HEPXA #### [facility] [address] [place] [address] 41409 Corporate Counsel: Norman Blake MD CO2 [Moles/Vol] 13 mmol/L Low 20-31 [facility] Comment on above: Performed By: #### R EJEC, HEPXA #### [facility] [address] [place] [address] 18628 Corporate Counsel: Norman Blake MD Creatinine [Mass/Vol] 0.5 mg/dL Normal 0.5-0.9 [facility] Comment on above: Performed By: #### R EJEC, HEPXA #### [facility] [address] [place] [address] 88413 Corporate Counsel: Norman Blake MD GFR/1.73 sq M.predicted among non-blacks MDRD (S/P/Bld) [Vol rate/Area] mL/min/{1.73_m2} Normal >60 [facility] Comment on above: Result Comment: These [...] By: #### R EJEC, HEPXA #### [facility] [address] [place] [address] 12824 Corporate Counsel: Norman Blake MD Glucose [Mass/Vol] 219 mg/dL High 70-99 [facility] Comment on above: Performed By: #### R EJEC, HEPXA #### [facility] [address] [place] [address] 51909 Corporate Counsel: Norman Blake MD Sodium [Moles/Vol] 129 mmol/L Low 135-144 [facility] Comment on above: Performed By: #### R EJEC, HEPXA #### [facility] [address] [place] [address] 77892 Corporate Counsel: Norman Blake MD Urea nitrogen [Mass/Vol] 10 mg/dL Normal 6-20 [facility] Comment on above: Performed By: #### R EJEC, HEPXA #### [facility] [address] [place] [address] 35476 Corporate Counsel: Norman Blake MD Anion gap [Moles/Vol] 18 mmol/L High 9-17 [facility] Comment on above: Performed By: #### R EJEC, HEPXA #### [facility] [address] [place] [address] 95178 Corporate Counsel: Norman Blake MD CO2 [Moles/Vol] 7 mmol/L Critically low 20-31 [facility] Comment on above: Performed By: #### R EJEC, HEPXA #### [facility] [address] [place] [address] 87400 Corporate Counsel: Norman Blake MD Calcium [Mass/Vol] 6.5 mg/dL Low 8.6-10.4 [facility] Comment on above: Performed By: #### R EJEC, HEPXA #### [facility] [place] [address] Corporate Counsel: Norman Blake MD Chloride [Moles/Vol] 105 mmol/L Normal 98-107 [facility] Comment on above: Performed By: #### R EJEC, HEPXA #### [facility] [address] [place] [address] 46235 Corporate Counsel: Norman Blake MD Creatinine [Mass/Vol] 0.7 mg/dL Normal 0.5-0.9 [facility] Comment on above: Performed By: #### R EJEC, HEPXA #### [address] [address] Corporate Counsel: Norman Blake MD GFR/1.73 sq M.predicted among non-blacks MDRD (S/P/Bld) [Vol rate/Area] mL/min/{1.73_m2} Normal >60 [facility] Comment on above: Result Comment: These [...] Performed By: #### R EJEC, HEPXA #### [address] [address] Corporate Counsel: Norman Blake MD Glucose [Mass/Vol] 267 mg/dL High 70-99 [facility] Comment on above: Performed By: #### R EJEC, HEPXA #### [facility] [address] [place] [address] 84176 Corporate Counsel: Norman Blake MD Potassium [Moles/Vol] 3.8 mmol/L Normal 3.7-5.3 [facility] Comment on above: Performed By: #### R EJEC, HEPXA #### [address] [address]111 Corporate Counsel: Norman Blake MD Sodium [Moles/Vol] 130 mmol/L Low 135-144 [facility] Comment on above: Performed By: #### R EJEC, HEPXA #### [address] 51017 Corporate Counsel: Norman Blake MD Urea nitrogen [Mass/Vol] 15 mg/dL Normal 6-20 [facility] Comment on above: Performed By: #### R EJEC, HEPXA #### [address] [address]283 Corporate Counsel: Norman Blake MD Anion Gap Unable to calculate anion gap due to CO2 less than 6. Normal 9-17 [facility] Comment on above: Performed By: #### H EPXA, TROPI, CDP, BMP #### [facility] [address] [place] [address] 31576 Corporate Counsel: Norman Blake MD Calcium [Mass/Vol] 6.4 mg/dL Low 8.6-10.4 [facility] Comment on above: Performed By: #### H EPXA, TROPI, CDP, BMP #### [facility] [address] [place] [address] 87643 Corporate Counsel: Norman Blake MD Chloride [Moles/Vol] 104 mmol/L Normal 98-107 [facility] Comment on above: Performed By: #### H EPXA, TROPI, CDP, BMP #### [facility] [address] [place] [address] 21402 Corporate Counsel: Norman Blake MD CO2 [Moles/Vol] mmol/L Critically low 20-31 [facility] Comment on above: Performed By: #### H EPXA, TROPI, CDP, BMP #### [facility] [address] [place] [address] [phone] Corporate Counsel: Norman Blake MD Creatinine [Mass/Vol] 0.7 mg/dL Normal 0.5-0.9 [facility] Comment on above: Performed By: #### H EPXA, TROPI, CDP, BMP #### [facility] [address] [place] [address] 93312 Corporate Counsel: Norman Blake MD GFR/1.73 sq M.predicted among non-blacks MDRD (S/P/Bld) [Vol rate/Area] mL/min/{1.73_m2} Normal >60 [facility] Comment on above: Result Comment: These [...] #### H EPXA, TROPI, CDP, BMP #### [facility] [address] [place] [address] [phone] Corporate Counsel: Norman Blake MD Glucose [Mass/Vol] 254 mg/dL High 70-99 [facility] Comment on above: Performed By: #### H EPXA, TROPI, CDP, BMP #### [facility] [address] [place] [address] 80816 Corporate Counsel: Norman Blake MD Potassium [Moles/Vol] 3.8 mmol/L Normal 3.7-5.3 [facility] Comment on above: Performed By: #### H EPXA, TROPI, CDP, BMP #### [address] [address] Corporate Counsel: Norman Blake MD Sodium [Moles/Vol] 129 mmol/L Low 135-144 [facility] Comment on above: Performed By: #### H EPXA, TROPI, CDP, BMP #### [facility] [address] [place] [address] 94524 Corporate Counsel: Norman Blake MD Urea nitrogen [Mass/Vol] 17 mg/dL Normal 6-20 [facility] Comment on above: Performed By: #### H EPXA, TROPI, CDP, BMP #### [facility] [address] [place] [address] 87124 Corporate Counsel: Norman Blake MD Beta Hydroxybutyrateon 03-186 Beta Hydroxybutyrate 3.84 mmol/L High 0.02-0.27 [facility] Comment on above: Performed By: #### H EPXA, TROPI, CDP, BMP #### [facility] [address] [place] [address] 61678 Corporate Counsel: Norman Blake MD CBCon 03-18-2023 Erythrocyte distribution width (RBC) [Ratio] 14.2 % Normal 11.8-14.4 [facility] Comment on above: Performed By: #### R EJEC, HEPXA #### [facility] [address] [place] [address] 68587 Corporate Counsel: Norman Blake MD Hematocrit (Bld) [Volume fraction] 37.1 % Normal 36.3-47.1 [facility] Comment on above: Performed By: #### R EJEC, HEPXA #### [facility] [address] [place] [address] 47805 Corporate Counsel: Norman Blake MD Hemoglobin (Bld) [Mass/Vol] 11.7 g/dL Low 11.9-15.1 [facility] Comment on above: Performed By: #### R EJEC, HEPXA #### [address] [address]808 Corporate Counsel: Norman Blake MD MCH (RBC) [Entitic mass] 24.9 pg Low 25.2-33.5 [facility] Comment on above: Performed By: #### R EJEC, HEPXA #### [address] 69813 Corporate Counsel: Norman Blake MD MCHC (RBC) [Mass/Vol] 31.5 g/dL Normal 28.4-34.8 [facility] Comment on above: Performed By: #### R EJEC, HEPXA #### [address] [address]181 Corporate Counsel: Norman Blake MD MCV (RBC) [Entitic vol] 79.1 fL Low 82.6-102.9 [facility] Comment on above: Performed By: #### R EJEC, HEPXA #### [address] 40562 Corporate Counsel: Norman Blake MD NRBC Automated 0.0 per 100 WBC Normal 0.0 [facility] Comment on above: Performed By: #### R EJEC, HEPXA #### [address] 61974 Corporate Counsel: Norman Blake MD Platelet mean volume (Bld) [Entitic vol] 10.0 fL Normal 8.1-13.5 [facility] Comment on above: Performed By: #### R EJEC, HEPXA #### [place] [address] Corporate Counsel: Norman Blake MD Platelets (Bld) [#/Vol] 232 10*3/uL Normal 138-453 [facility] Comment on above: Performed By: #### R EJEC, HEPXA #### [address] [address]326 Corporate Counsel: Norman Blake MD RBC (Bld) [#/Vol] 4.69 10*6/uL Normal 3.95-5.11 [facility] Comment on above: Performed By: #### R EJEC, HEPXA #### [place] [address] Corporate Counsel: Norman Blake MD WBC (Bld) [#/Vol] 16.6 10*3/uL High 3.5-11.3 [facility] Comment on above: Performed By: #### R EJEC, HEPXA #### [place] [address] Corporate Counsel: Norman Blake MD CBC with Diffon 03-18-2023 Abs. Basophil 0.03 k/uL Normal 0.00-0.20 [facility] Comment on above: Performed By: #### H EPXA, TROPI, CDP, BMP #### [place] [address] Corporate Counsel: Norman Blake MD Abs.Imm.Granulocyte 0.11 k/uL Normal 0.00-0.30 [facility] Comment on above: Performed By: #### H EPXA, TROPI, CDP, BMP #### [place] [address] Corporate Counsel: Norman Blake MD Abs.Neutrophil (Seg) 16.38 k/uL High 1.50-8.10 [facility] Comment on above: Performed By: #### H EPXA, TROPI, CDP, BMP #### [place] [address] Corporate Counsel: Norman Blake MD Basophils/100 WBC (Bld) 0 % Normal 0-2 [facility] Comment on above: Performed By: #### H EPXA, TROPI, CDP, BMP #### [facility] [address] [place] [address] 04535 Corporate Counsel: Norman Blake MD Eosinophils (Bld) [#/Vol] 0.06 10*3/uL Normal 0.00-0.44 [facility] Comment on above: Performed By: #### H EPXA, TROPI, CDP, BMP #### [facility] [address] [place] [address] 97158 Corporate Counsel: Norman Blake MD Eosinophils/100 WBC (Bld) 0 % Low 1-4 [facility] Comment on above: Performed By: #### H EPXA, TROPI, CDP, BMP #### [facility] [address] [place] [address] 75239 Corporate Counsel: Norman Blake MD Erythrocyte distribution width (RBC) [Ratio] 13.9 % Normal 11.8-14.4 [facility] Comment on above: Performed By: #### H EPXA, TROPI, CDP, BMP #### [facility] [address] [place] [address] 90803 Corporate Counsel: Norman Blake MD Hematocrit (Bld) [Volume fraction] 36.6 % Normal 36.3-47.1 [facility] Comment on above: Performed By: #### H EPXA, TROPI, CDP, BMP #### [facility] [address] [place] [address] 94243 Corporate Counsel: Norman Blake MD Hemoglobin (Bld) [Mass/Vol] 11.8 g/dL Low 11.9-15.1 [facility] Comment on above: Performed By: #### H EPXA, TROPI, CDP, BMP #### [facility] [address] [place] [address] 64905 Corporate Counsel: Norman Blake MD Immature granulocytes/100 WBC (Bld) 1 % High 0 [facility] Comment on above: Performed By: #### H EPXA, TROPI, CDP, BMP #### [address] [address] Corporate Counsel: Norman Blake MD Lymphocytes (Bld) [#/Vol] 2.92 10*3/uL Normal 1.10-3.70 [facility] Comment on above: Performed By: #### H EPXA, TROPI, CDP, BMP #### [address] [address]014 Corporate Counsel: Norman Blake MD Lymphocytes/100 WBC (Bld) 14 % Low 24-43 [facility] Comment on above: Performed By: #### H EPXA, TROPI, CDP, BMP #### [address] [address]42 Corporate Counsel: Norman Blake MD MCH (RBC) [Entitic mass] 25.4 pg Normal 25.2-33.5 [facility] Comment on above: Performed By: #### H EPXA, TROPI, CDP, BMP #### [address] [address]174 Corporate Counsel: Norman Blake MD MCHC (RBC) [Mass/Vol] 32.2 g/dL Normal 28.4-34.8 [facility] Comment on above: Performed By: #### H EPXA, TROPI, CDP, BMP #### [address] [address] Corporate Counsel: Norman Blake MD MCV (RBC) [Entitic vol] 78.7 fL Low 82.6-102.9 [facility] Comment on above: Performed By: #### H EPXA, TROPI, CDP, BMP #### [address] [address]31 Corporate Counsel: Norman Blake MD Monocytes (Bld) [#/Vol] 0.92 10*3/uL Normal 0.10-1.20 [facility] Comment on above: Performed By: #### H EPXA, TROPI, CDP, BMP #### [address] [address] Corporate Counsel: Norman Blake MD Monocytes/100 WBC (Bld) 5 % Normal 3-12 [facility] Comment on above: Performed By: #### H EPXA, TROPI, CDP, BMP #### [address] [address]227 Corporate Counsel: Norman Blake MD Neutrophil (Seg) 80 % High 36-65 [facility] Comment on above: Performed By: #### H EPXA, TROPI, CDP, BMP #### [address] [address]195 Corporate Counsel: Norman Blake MD NRBC Automated 0.0 per 100 WBC Normal 0.0 [facility] Comment on above: Performed By: #### H EPXA, TROPI, CDP, BMP #### [address] [address] Corporate Counsel: Norman Blake MD Platelet mean volume (Bld) [Entitic vol] 9.6 fL Normal 8.1-13.5 [facility] Comment on above: Performed By: #### H EPXA, TROPI, CDP, BMP #### [address] [address] Corporate Counsel: Norman Blake MD Platelets (Bld) [#/Vol] 264 10*3/uL Normal 138-453 [facility] Comment on above: Performed By: #### H EPXA, TROPI, CDP, BMP #### [address] [address]70 Corporate Counsel: Norman Blake MD RBC (Bld) [#/Vol] 4.65 10*6/uL Normal 3.95-5.11 [facility] Comment on above: Performed By: #### H EPXA, TROPI, CDP, BMP #### [facility] [address] [place] [address] Corporate Counsel: Norman Blake MD RBC morphology finding Nom (Bld) MICROCYTOSIS PRESENT Normal [facility] Comment on above: Performed By: #### H EPXA, TROPI, CDP, BMP #### [facility] [place] [address] Corporate Counsel: Norman Blake MD WBC (Bld) [#/Vol] 20.4 10*3/uL High 3.5-11.3 [facility] Comment on above: Performed By: #### H EPXA, TROPI, CDP, BMP #### [address] [address] Corporate Counsel: Norman Blake MD CMP Standardon 03-18-2023 Anion Gap see comment Invalid Interpretation Code 5.0-19.0 [facility] Comment on above: Result Comment: Unab le to calculate Performed By: #### 1 [id number], [id number], [id number] ####[facility] (DEFAULT)[address] [place] [address] Breakpoint Chem Normal [facility] Comment on above: Performed By: #### 1 [id number], [id number], [id number] ####[facility] (DEFAULT)[address] [place] [address] 02766 eGFR Non AA >60 Invalid Interpretation Code [facility] Comment on above: Performed By: #### 1 [id number], [id number], [id number] ####[facility] (DEFAULT)[address] [place] [address] 77027 eGFR AA >60 Invalid Interpretation Code [facility] Comment on above: Performed By: #### 1 [id number], [id number], [id number] ####[facility] (DEFAULT)[address] [place] [address] 62929 Albumin [Mass/Vol] 3.8 g/dL Normal 3.5-5.0 [facility] Comment on above: Performed By: #### 1 [id number], [id number], [id number] ####[facility] (DEFAULT)[address] [place] [address] 68056 Albumin/Globulin [Mass ratio] 1.1 {ratio} Low 1.4-2.6 [facility] Comment on above: Performed By: #### 1 [id number], [id number], [id number] ####[facility] (DEFAULT)[address] [place] [address] 82064 Alk Phos 84 IU/L Normal 32-91 [facility] Comment on above: Performed By: #### 1 [id number], [id number], [id number] ####[facility] (DEFAULT)[address] [place] [address] 12706 ALT [Catalytic activity/Vol] 20.0 U/L Normal 14.0-54.0 [facility] Comment on above: Performed By: #### 1 [id number], [id number], [id number] ####[facility] (DEFAULT)[address] [place] [address] 51771 AST [Catalytic activity/Vol] 37 U/L Normal 15-41 [facility] Comment on above: Performed By: #### 1 [id number], [id number], [id number] ####[facility] (DEFAULT)[address] [place] [address] 07194 Bili Total 1.6 mg/dL High 0.3-1.2 [facility] Comment on above: Performed By: #### 1 [id number], [id number], [id number] ####[facility] (DEFAULT)[address] [place] [address] 00206 Calcium [Mass/Vol] 7.2 mg/dL Low 8.9-10.3 [facility] Comment on above: Performed By: #### 1 [id number], [id number], [id number] ####[facility] (DEFAULT)[address] [place] [address] 56674 Chloride [Moles/Vol] 104 mmol/L Normal 101-[address] [facility] Comment on above: Performed By: #### 1 [id number], [id number], [id number] ####[facility] (DEFAULT)[address] [place] [address] 88438 Creatinine [Mass/Vol] 0.92 mg/dL Normal 0.60-1.30 [facility] Comment on above: Performed By: #### 1 [id number], [id number], [id number] ####[facility] (DEFAULT)[address] [place] [address] 86418 Globulin (S) [Mass/Vol] 3.4 g/dL Normal 1.5-4.3 [facility] Comment on above: Performed By: #### 1 [id number], [id number], [id number] ####[facility] (DEFAULT)[address] [place] [address] 45478 Glucose [Mass/Vol] 419.0 mg/dL High 74.0-118.0 [facility] Comment on above: Performed By: #### 1 [id number], [id number], [id number] ####[facility] (DEFAULT)[address] [place] [address] 51235 Osmolality 275 mOsm/L Invalid Interpretation Code [facility] Comment on above: Performed By: #### 1 [id number], [id number], [id number] ####[facility] (DEFAULT)[address] [place] [address] 49099 Potassium [Moles/Vol] 4.1 mmol/L Normal 3.6-5.1 [facility] Comment on above: Performed By: #### 1 [id number], [id number], [id number] ####[facility] (DEFAULT)[address] [place] [address] 41781 Protein [Mass/Vol] 7.2 g/dL Normal 6.5-8.1 [facility] Comment on above: Performed By: #### 1 [id number], [id number], [id number] ####[facility] (DEFAULT)[address] [place] [address] 40603 Sodium [Moles/Vol] 127.0 mmol/L Low 136.0-144.0 [facility] Comment on above: Performed By: #### 1 [id number], [id number], [id number] ####[facility] (DEFAULT)[address] [place] [address] 80780 Urea nitrogen [Mass/Vol] 19 mg/dL Normal 8-26 [facility] Comment on above: Performed By: #### 1 [id number], [id number], [id number] ####[facility] (DEFAULT)[address] [place] [address] 26626 Urea nitrogen/Creatinine [Mass ratio] 20.6 mg/mg High 4.6-16.2 [facility] Comment on above: Performed By: #### 1 [id number], [id number], [id number] ####[facility] (DEFAULT)[address] [place] [address] 65416 CO2 [Moles/Vol] mmol/L Low 21-32 [facility] Comment on above: Performed By: #### 1 [id number], [id number], [id number] ####[facility] (DEFAULT)[address] [place] [address] 89050 Breakpoint Chem Normal [facility] Comment on above: Order Comment: Patie nt is a hard stick. 3 Nurses have tried to do an IV. I am waiting to see if they get the IV started. 03/17/2023 22:08:47 EDT Performed By: #### 3 [id number], [id number], [id number], [id number], [id number], [id number] ####[facility] (DEFAULT)[address] [place] [address] CHEST PULMONARY EMBOLISM W CONTRASTon 03-18-2023 CT CHEST PULMONARY EMBOLISM W CONTRAST ADDENDUM: [...] MD 03/18/23 Edited Result - FINAL Normal [facility] Calcium, Ionicon 03-18-2023 Calcium [Moles/Vol] 1.18 mmol/L Normal 1.13-1.33 [facility] Comment on above: Performed By: #### D CLARK, IOCAL #### [facility] [address] [place] [address] Corporate Counsel: Norman Blake MD D-Dimer Teston 03-18-2023 D-Dimer Test 0.60 ug/mL FEU High 0.00-0.57 [facility] Comment on above: Result Comment: When [...] patients with distal DVT. Performed By: #### D CLARK IOCAL #### [facility] [address] [place] [address] [id number] Corporate Counsel: Norman Blake MD ED Clinical Summaryon 2022 ED Clinical Summary [facility] Emergency Department [address] [place] [address] ED Clinical Summary PERSON INFORMATION Name: DOUGLAS CORDOVA Age: 27 Years Sex: FEMALE : 1995 MRN: Acct#: Visit Reason: Chest pain; SOB, CHEST PAIN Arrival: 03/17/2023 20:58:55 Discharge: 03/18/2023 03:03:00 LOS: 000 06:05 Check In: 03/17/2023 20:58:55 Checkout:03/18/2023 03:03:00 Address: [address] [facility] [address] PCP: ARCADIO IGLESIAS PROVIDER INFORMATION Provider Role [...] 0 Refill(s) clif (more content not included)... [facility] ED Note - Otheron 03-18-2023 ED Note - Other paging Fuel Truck Driver through [facility] for transfer [Electronically Signed on: 03/18/2023 00:54 EDT] Usha Angel [Verified on: 03/18/2023 00:54 EDT] Usha Angel Fuel Truck Driver called back from [facility], Dr. Valdes retuned call, on phone with Dr. [phone] [Electronically Signed on: 03/18/2023 01:00 EDT] Usha Angel [facility] ED Patient Education Noteon 03-18-2023 ED Patient Education Note Education Materials [facility] ED Patient Summaryon 023 ED Patient Summary [facility] - Emergency Department [address] [place] [address] PATIENT DISCHARGE INSTRUCTIONS Patient Information Name: DOUGLAS CORDOVA Age: 27 Years Date of : 1995 Reason For Visit: Chest pain; SOB, CHEST PAIN Arrival Time: 03/17/2023 20:58:55 Primary Care Physician: ARCADIO IGLESIAS Attending Physician: Omley, Linn H DO Comment: Visit Diagnosis: Diagnoses This Visit Anxiety (F41.9) Chest pain ([id number]) COVID-19 (U07.1) DKA (diabetic ketoacidosis) (E11.10) The Pharmacy at [facility] is open Friday through Friday from [...] alcohol and/or drug addiction problems; contact the [facility] 20/01 Crisis Hotline -text 4hope [...] and treatment you received today in the [facility] Emergency Department were for an urgent problem and are not intended as complete care. It is important for you to follow up with a doctor, nurse practitioner, or physician?s email marketing assistant for ongoing care. If your symptoms [...] so we can reach you if necessary. [facility] Emergency Department has provided you with a complete list of medications post discharge. Please inform your unarmed security officer/provider of your visit and for further instruction [...] a day. Durable Medical Equipment for Prescription ([employer] DASH PODS (GEN 4) 5PK) change q [...] better. Usual (more content not included)... Normal [facility] Hemoglobin A1Con 03-18-2023 Glucose [Mass/Vol] 369 mg/dL Normal [facility] Comment on above: Result Comment: The ADA and AACC recommend providing the estimated average glucose result to permit better patient understanding of their HBA1c result. Performed By: #### H EPXA, TROPI, CDP, BMP #### [address] [address] Corporate Counsel: Norman Blake MD HbA1c (Bld) [Mass fraction] 14.5 % High 4.0-6.0 [facility] Comment on above: Performed By: #### H EPXA, TROPI, CDP, BMP #### [address] [address] Corporate Counsel: Norman Blake MD Heparin Anti-Xaon 03-18-2023 Heparin Anti-Xa <0.10 Normal [facility] Comment on above: Performed By: #### D CLARK, IOCAL #### [address] [address] Corporate Counsel: Norman Blake MD Heparin Anti-Xa <0.10 Normal [facility] Comment on above: Performed By: #### R EJEC, HEPXA #### [address] [address] Corporate Counsel: Norman Blake MD Heparin Anti-Xa <0.10 Normal [facility] Comment on above: Performed By: #### R EJEC, HEPXA #### [address] [address] Corporate Counsel: Norman Blake MD MRSA, DNA, Nasalon 3 Specimen Description .NASAL SWAB Normal [facility] Comment on above: Performed By: #### D CLARK, IOCAL #### [address] [address] Corporate Counsel: Norman Blake MD Magnesiumon 03-18-2023 Magnesium [Mass/Vol] 1.9 mg/dL Normal 1.6-2.6 [facility] Comment on above: Performed By: #### Jam RODAS IOCAL #### [employer] [address] [place] [address] Corporate Counsel: Norman Blake MD Magnesium [Mass/Vol] 2.2 mg/dL Normal 1.6-2.6 [facility] Comment on above: Performed By: #### R EJEC, HEPXA #### [employer] [facility] [address] [place] [address] Corporate Counsel: Norman Blake MD Magnesium [Mass/Vol] 2.2 mg/dL Normal 1.6-2.6 [facility] Comment on above: Performed By: #### Jose WELCH, HEPXA #### [employer] [address] [place] [address] Corporate Counsel: Norman Blake MD Magnesium [Mass/Vol] 1.6 mg/dL Normal 1.6-2.6 [facility] Comment on above: Performed By: #### Jam RODAS IOCAL #### [employer] [address] [place] [address] Corporate Counsel: Norman Blake MD Myoglobinon 03-18-2023 Myoglobin [Mass/Vol] 288.6 ng/mL High 14.3-65.8 [facility] Comment on above: Performed By: #### 1 [id number], [id number], [id number] ####[facility] (DEFAULT)[address] [place] [address] PTon 03-18-2023 INR Coag (PPP) [Relative time] 1.1 {INR} Normal [facility] Comment on above: Result Comment: Therapeutic Range: Moderate Anticoagulant Intensity: INR = 2.0-3.0 High Anticoagulant Intensity: INR = 2.5-3.5 Performed By: #### R EJEC, HEPXA #### [employer] [address] Corporate Counsel: Norman Blake MD PT Coag (PPP) [Time] 14.1 s Normal 11.7-14.9 [facility] Comment on above: Performed By: #### R EJEC, HEPXA #### [address] [address] Corporate Counsel: Norman Blake MD Phosphorus, Inorg.on 023 Phosphorus, Inorg. 0.4 mg/dL Critically low 2.6-4.5 [facility] Comment on above: Performed By: #### IRAIDA DUBOISCAL #### [address] [address] Corporate Counsel: Norman Blake MD Phosphorus, Inorg. 0.4 mg/dL Critically low 2.6-4.5 [facility] Comment on above: Result Comment: TEST CONFIRMED Performed By: #### Jose EJEC, HEPXA #### [address] [address] Corporate Counsel: Norman Blake MD Phosphorus, Inorg. 0.9 mg/dL Critically low 2.6-4.5 [facility] Comment on above: Performed By: #### Jam RODAS IOCAL #### [address] [address] Corporate Counsel: Norman Blake MD Phosphorus, Inorg. 1.2 mg/dL Low 2.6-4.5 [facility] Comment on above: Performed By: #### H EPXA, TROPI, CDP, BMP #### [address] [address] Corporate Counsel: Norman Blake MD Specimen Rejectionon 023 Reason for rejection Unable to perform testing: Specimen contaminated. Normal [facility] Comment on above: Performed By: #### R EJEC, HEPXA #### [facility] [address] [place], [place] [id number] Corporate Counsel: Norman Blake MD Source of sample .BLOOD Normal [facility] Comment on above: Performed By: #### R EJEC, HEPXA #### [facility] [place], [place] [address] Corporate Counsel: Norman Blake MD Test ordered TROPI MG AUDRA BMP Normal [facility] Comment on above: Performed By: #### R EJEC, HEPXA #### [address] [id number] Corporate Counsel: Norman Blake MD TnI HSon 03-18-2023 Troponin I High Sensitivity 5176.9 pg/mL Critically abnormal <=15.0 [facility] Comment on above: Result Comment: Crit ical result TNIHS 5176.9 pg/mL called to and read back by Nora Bliss RN at 18-Mar-2023 01:30 by [email or web address]_[email or web address]. Performed By: #### 1 [id number], [id number], [id number] ####[facility] ([place] [address] Transfer Noteon 03-18-[address] [facility] 3008 bed 1 report # [id number] [Electronically Signed on: 03/18/2023 02:25 EDT] Usha Angel [Verified on: 03/18/2023 02:25 EDT] Usha Angel Normal [facility] Transfer Note Complete ED chart sent with patient. CD and med list sent w. patient to [facility] [Electronically Signed on: 03/18/2023 01:47 EDT] StanleyUsha berry [Verified on: 03/18/2023 01:47 EDT] Usha Angel [facility] Transfer Note [id number] [facility] [id number] [facility] to [facility], Spoke to [facility] and she stated that they are unable to take patient do to her being in DKA. Will try other transport. [Electronically Signed on: 03/18/2023 01:11 EDT] StanleyUsha berry [Verified on: 03/18/2023 01:11 EDT] StanleyUsha berry [facility] and [facility] [Electronically Signed on: 03/18/2023 01:19 EDT] StanleyUsha berry [facility] Transfer Note [facility] [Electronically Signed on: 03/18/2023 00:21 EDT] Usha Angel [Verified on: 03/18/2023 00:21 EDT] Usha Angel Fuel Truck Driver [facility], on the phone with Dr. Joanna Foster1 [Electronically Signed on: 03/18/2023 00:32 EDT] Usha Angel [facility] Troponinon 03-18-2023 Troponin, High Sens 851 ng/L Critically high 0-14 [facility] Comment on above: Result Comment: High Sensitivity Troponin values cannot be compared with other Troponin methodologies. Previous Alert Value Reported Performed By: #### D CLARK, IOCAL #### [facility] [place] [address] Corporate Counsel: Norman Blake MD Troponin, High Sens 860 ng/L Critically high 0-14 [facility] Comment on above: Result Comment: High Sensitivity Troponin values cannot be compared with other Troponin methodologies. Previous Alert Value Reported Performed By: #### R EJEC, HEPXA #### [employer] [place] [id number] Corporate Counsel: Norman Blake MD Troponin, High Sens 709 ng/L Critically high 0-14 [facility] Comment on above: Result Comment: High Sensitivity Troponin values cannot be compared with other Troponin methodologies. Previous Alert Value Reported Performed By: #### H EPXA, TROPI, CDP, BMP #### [place] [address] Corporate Counsel: Norman Blake MD Troponin, High Sens 700 ng/L Critically high 0-14 [facility] Comment on above: Result Comment: High Sensitivity Troponin values cannot be compared with other Troponin methodologies. Previous Alert Value Reported Performed By: #### D CLARK, IOCAL #### [address] [address] Corporate Counsel: Norman Blake MD Troponin, High Sens 638 ng/L Critically high 0-14 [facility] Comment on above: Result Comment: High Sensitivity Troponin values cannot be compared with other Troponin methodologies. Performed By: #### H EPXA, TROPI, CDP, BMP #### [address] [address] Corporate Counsel: Norman Blake MD UA w/Reflex Cultureon 2022 Bilirubin, SemiQt,Ur Negative Normal NEG [facility] Comment on above: Performed By: #### U AX #### [address] [address] Corporate Counsel: Norman Blake MD Blood, Urine LARGE Abnormal NEG [facility] Comment on above: Performed By: #### U AX #### [facility] [address] [place] [address] Corporate Counsel: Norman Blake MD Clarity (U) Cloudy Abnormal CLEAR [facility] Comment on above: Performed By: #### U AX #### [facility] [address] [place] [address] Corporate Counsel: Norman Blake MD Color (U) Yellow Normal YEL [facility] Comment on above: Performed By: #### U AX #### [address] [address] Corporate Counsel: Norman Blake MD Glucose Ql (U) 3+ mg/dL Abnormal NEG [facility] Comment on above: Performed By: #### U AX #### [address] [address] Corporate Counsel: Norman Blake MD Ketones Ql (U) LARGE Abnormal NEG [facility] Comment on above: Performed By: #### U AX #### [address] [address] Corporate Counsel: Norman Blake MD Leukocyte esterase Test strip Ql (U) Negative Normal NEG [facility] Comment on above: Performed By: #### U AX #### [address] [address] Corporate Counsel: Norman Blake MD Nitrite,Ur Negative Normal NEG [facility] Comment on above: Performed By: #### U AX #### [address] [address] Corporate Counsel: Norman Blake MD PH,Ur 5.5 Normal 5.0-8.0 [facility] Comment on above: Performed By: #### U AX #### [address] [address] Corporate Counsel: Norman Blake MD Protein Ql (U) 2+ mg/dL Abnormal NEG [facility] Comment on above: Performed By: #### U AX #### [address] [address] Corporate Counsel: Norman Blake MD Spec. Dimmitt,Ur 1.028 Normal 1.005-1.030 [facility] Comment on above: Performed By: #### U AX #### [address] [address] Corporate Counsel: Norman Blake MD Urobilinogen,Ur Normal Normal 0.0-1.0 [facility] Comment on above: Performed By: #### U AX #### [address] [address] Corporate Counsel: Norman Blake MD Venous Blood Gaseson 023 Body Temp. 37.0 Normal [facility] Comment on above: Performed By: #### R EJEC, HEPXA #### [address] [address] Corporate Counsel: Norman Blake MD Carboxy Hgb 0.7 % Normal 0-5 [facility] Comment on above: Result Comment: Reference Range: Non-Smokers 0-2% Average Smoker 2-4% Heavy Smoker <10% Performed By: #### R EJEC, HEPXA #### [address] [address] Corporate Counsel: Norman Blake MD FIO2 INFORMATION NOT PROVIDED Normal [facility] Comment on above: Performed By: #### R EJEC, HEPXA #### [address] [address] Corporate Counsel: Norman Blake MD HCO3 (Bld) [Moles/Vol] 17.2 mmol/L Low 24-30 M [facility] Comment on above: Performed By: #### R EJEC, HEPXA #### [address] [address] Corporate Counsel: Norman Blake MD Negative Base Excess 7.0 mmol/L High 0.0-2.0 [facility] Comment on above: Performed By: #### R EJEC, HEPXA #### [address] [address] Corporate Counsel: Norman Blake MD Oxygen saturation in Blood 90.7 % High 60.0-85.0 [facility] Comment on above: Performed By: #### R EJEC, HEPXA #### [address] [address] Corporate Counsel: Norman Blake MD pCO2 32.2 mm Hg Low 39-55 [facility] Comment on above: Performed By: #### R EJEC, HEPXA #### [address] [address] Corporate Counsel: Norman Blake MD pH (Bld) 7.348 [pH] Normal 7.320-7.420 [facility] Comment on above: Performed By: #### R YURI, HEPXA #### [facility] [address] [place] [address] Corporate Counsel: Norman Blake MD pO2 55.1 mm Hg High 30-50 [facility] Comment on above: Performed By: #### R ERICAEC, HEPXA #### [employer] [address] [place] [address] Corporate Counsel: Norman Blake MD XR CHEST PORTABLEon 03-18-20 [...] Prieto Engel MD 03/18/23 Final result Normal [facility] .Auto Diff 1on 03-17-2023 Auto Bremer % 3 % Normal 1-12 [facility] Comment on above: Performed By: #### 3 [id number], [id number], [id number], [id number], [id number], [id number] ####[facility] (DEFAULT)[address] [place] [address] Baso Abs# 0.1 x10 Normal 0.0-0.2 [facility] Comment on above: Performed By: #### 3 [id number], [id number], [id number], 72476853, [id number], 3381382 ####[facility] (DEFAULT)[address] [place] [address] Basophils/100 WBC (Bld) 0.6 % Normal 0.2-2.0 [facility] Comment on above: Performed By: #### 3 [id number], [id number], [id number], 31793412, [id number], [id number] ####[facility] (DEFAULT)[address] [place] [address] Eos Abs# 0.0 x10 Normal 0.0-0.4 [facility] Comment on above: Performed By: #### 3 [id number], [id number], [id number], 41599140, 7283232708, 2722782 ####[facility] (DEFAULT)[address] [place] [address] Eosinophils/100 WBC (Bld) 0.1 % Low 0.9-4.0 [facility] Comment on above: Performed By: #### 3 [id number], [id number], [id number], 17023843, 7577945454, 5121990 ####[facility] (DEFAULT)[address] [place] [address] Lymph Abs# 1.4 x10 Normal 1.3-2.9 [facility] Comment on above: Performed By: #### 3 [id number], [id number], 6304485143, 96666679, 4025853038, 0387030 ####[facility] (DEFAULT)[address] [place] [address] Lymphocytes/100 WBC (Bld) 6 % Low 14-48 [facility] Comment on above: Performed By: #### 3 [id number], [id number], 5614759473, 21471353, 0067344591, 3360600 ####[facility] (DEFAULT)[address] [place] [address] Bremer Abs# 0.7 x10 Normal 0.0-0.8 [facility] Comment on above: Performed By: #### 3 [id number], [id number], 9394397882, 37672006, 5614211367, 3788496 ####[facility] (DEFAULT)[address] [place] [address] Neut Abs# 19.8 x10 High 1.5-9.2 [facility] Comment on above: Performed By: #### 3 [id number], [id number], 5258906357, 31449933, 5681719116, 4732473 ####[facility] (DEFAULT)[address] [place] [address] Neutrophils/100 WBC (Bld) 90 % High 44-88 [facility] Comment on above: Performed By: #### 3 [id number], 4405139156, 5314811042, 04899917, 0836347552, 1224929 ####[facility] (DEFAULT)[address] [place] [address] Acet Levelon 03-17-2023 Acetaminoph Lvl <10 Normal 10-30 [facility] Comment on above: Performed By: #### 6 [id number] #### [facility] (DEFAULT) [address] [place] [address] CBC w/ Auto Diffon Erythrocyte distribution width (RBC) [Ratio] 15.6 % High 11.5-15.0 [facility] Comment on above: Order Comment: Patie nt is a hard stick. 3 Nurses have tried to do an IV. I am waiting to see if they get the IV started. 03/17/2023 22:08:47 EDT Performed By: #### 3 [id number], [id number], 0522089773, 45264232, 7809524262, 8250388 ####[facility] (DEFAULT)[address] [place] [address] Hematocrit (Bld) [Volume fraction] 47.0 % High 33.7-40.4 [facility] Comment on above: Order Comment: Patie nt is a hard stick. 3 Nurses have tried to do an IV. I am waiting to see if they get the IV started. 03/17/2023 22:08:47 EDT Performed By: #### 3 [id number], [id number], 1547693140, 39537935, 4091938737, 1876091 ####[facility] (DEFAULT)[address] [place] [address] Hemoglobin (Bld) [Mass/Vol] 14.5 g/dL Normal 11.3-15.9 [facility] Comment on above: Order Comment: Patie nt is a hard stick. 3 Nurses have tried to do an IV. I am waiting to see if they get the IV started. 03/17/2023 22:08:47 EDT Performed By: #### 3 [id number], [id number], 0131276320, 25703921, 1334635043, 0619730 ####[facility] (DEFAULT)[address] [place] [address] Man Diff? Auto Invalid Interpretation Code [facility] Comment on above: Order Comment: Patie nt is a hard stick. 3 Nurses have tried to do an IV. I am waiting to see if they get the IV started. 03/17/2023 22:08:47 EDT Performed By: #### 3 [id number], [id number], 7712048801, 88606931, 0307690193, 4048903 ####[facility] (DEFAULT)[address] [place] [address] MCH (RBC) [Entitic mass] 25 pg Normal 24-34 [facility] Comment on above: Order Comment: Patie nt is a hard stick. 3 Nurses have tried to do an IV. I am waiting to see if they get the IV started. 03/17/2023 22:08:47 EDT Performed By: #### 3 [id number], [id number], 7257595164, 10399478, 9364800817, 0956152 ####[facility] (DEFAULT)[address] [place] [address] MCHC (RBC) [Mass/Vol] 31 g/dL Normal 26-37 [facility] Comment on above: Order Comment: Patie nt is a hard stick. 3 Nurses have tried to do an IV. I am waiting to see if they get the IV started. 03/17/2023 22:08:47 EDT Performed By: #### 3 [id number], 6514340059, 9007378273, 61664786, 6649815534, 3917035 ####[facility] (DEFAULT)[address] [place] [address] MCV (RBC) [Entitic vol] 81 fL Normal 81-100 [facility] Comment on above: Order Comment: Patie nt is a hard stick. 3 Nurses have tried to do an IV. I am waiting to see if they get the IV started. 03/17/2023 22:08:47 EDT Performed By: #### 3 [id number], [id number], 8596631698, 11324028, 8053589645, 6035535 ####[facility] (DEFAULT)[address] [place] [address] Platelet 381 x10 Normal 138-427 [facility] Comment on above: Order Comment: Patie nt is a hard stick. 3 Nurses have tried to do an IV. I am waiting to see if they get the IV started. 03/17/2023 22:08:47 EDT Performed By: #### 3 [id number], 2203134659, 4352872182, 53893487, 7509071568, 4217644 ####[facility] (DEFAULT)[address] [place] [address] Platelet mean volume (Bld) [Entitic vol] 8.3 fL Normal 6.3-10.2 [facility] Comment on above: Order Comment: Patie nt is a hard stick. 3 Nurses have tried to do an IV. I am waiting to see if they get the IV started. 03/17/2023 22:08:47 EDT Performed By: #### 3 [id number], 4819602846, 7342619895, 13517060, 0370567460, 1205106 ####[facility] (DEFAULT)[address] [place] [address] RBC 5.80 x10 High 3.70-5.30 [facility] Comment on above: Order Comment: Patie nt is a hard stick. 3 Nurses have tried to do an IV. I am waiting to see if they get the IV started. 03/17/2023 22:08:47 EDT Performed By: #### 3 [id number], [id number], 2536647908, 52032374, 5683715713, 5804987 ####[facility] (DEFAULT)[address] [place] [address] WBC 22.0 x10 High 3.5-10.5 [facility] Comment on above: Order Comment: Patie nt is a hard stick. 3 Nurses have tried to do an IV. I am waiting to see if they get the IV started. 03/17/2023 22:08:47 EDT Result Comment: Slid e Reviewed Performed By: #### 3 [id number], [id number], 3636319055, 26919468, 4325753825, 0830512 ####[facility] (DEFAULT)[address] [place] [address] CMP Standardon 03-17-2023 eGFR Non AA >60 Invalid Interpretation Code [facility] Comment on above: Order Comment: Patie nt is a hard stick. 3 Nurses have tried to do an IV. I am waiting to see if they get the IV started. 03/17/2023 22:08:47 EDT Performed By: #### 3 [id number], [id number], 2899115897, 72138210, 1175342469, 1633459 ####[facility] (DEFAULT)[address] [place] [address] eGFR AA >60 Invalid Interpretation Code [facility] Comment on above: Order Comment: Patie nt is a hard stick. 3 Nurses have tried to do an IV. I am waiting to see if they get the IV started. 03/17/2023 22:08:47 EDT Performed By: #### 3 [id number], 4995130758, 2353015341, 24465375, 7540523096, 6286956 ####[facility] (DEFAULT)[address] [place] [address] Albumin [Mass/Vol] 4.3 g/dL Normal 3.5-5.0 [facility] Comment on above: Order Comment: Patie nt is a hard stick. 3 Nurses have tried to do an IV. I am waiting to see if they get the IV started. 03/17/2023 22:08:47 EDT Performed By: #### 3 [id number], 6385319209, 9576880314, 65569805, 8457038099, 3530294 ####[facility] (DEFAULT)[address] [place] [address] Albumin/Globulin [Mass ratio] 1.1 {ratio} Low 1.4-2.6 [facility] Comment on above: Order Comment: Patie nt is a hard stick. 3 Nurses have tried to do an IV. I am waiting to see if they get the IV started. 03/17/2023 22:08:47 EDT Performed By: #### 3 [id number], [id number], 0617489848, 18552642, 2709557702, 9552693 ####[facility] (DEFAULT)[address] [place] [address] Alk Phos 93 IU/L High 32-91 [facility] Comment on above: Order Comment: Patie nt is a hard stick. 3 Nurses have tried to do an IV. I am waiting to see if they get the IV started. 03/17/2023 22:08:47 EDT Performed By: #### 3 [id number], [id number], 1075829586, 84833561, 1798263265, 7022528 ####[facility] (DEFAULT)[address] [place] [address] ALT [Catalytic activity/Vol] 21.0 U/L Normal 14.0-54.0 [facility] Comment on above: Order Comment: Patie nt is a hard stick. 3 Nurses have tried to do an IV. I am waiting to see if they get the IV started. 03/17/2023 22:08:47 EDT Performed By: #### 3 [id number], [id number], 2556337203, 91272221, 8589551094, 4041649 ####[facility] (DEFAULT)[address] [place] [address] 11203 AST [Catalytic activity/Vol] 37 U/L Normal 15-41 [facility] Comment on above: Order Comment: Patie nt is a hard stick. 3 Nurses have tried to do an IV. I am waiting to see if they get the IV started. 03/17/2023 22:08:47 EDT Performed By: #### 3 [id number], [id number], [id number], 55509215, 3256396982, 6907645 ####[facility] (DEFAULT)[address] [place] [address] 96853 Bili Total 1.7 mg/dL High 0.3-1.2 [facility] Comment on above: Order Comment: Patie nt is a hard stick. 3 Nurses have tried to do an IV. I am waiting to see if they get the IV started. 03/17/2023 22:08:47 EDT Performed By: #### 3 [id number], [id number], 8996857099, 88673535, [id number], 2286240 ####[facility] (DEFAULT)[address] [place] [address] 48523 Calcium [Mass/Vol] 7.7 mg/dL Low 8.9-10.3 [facility] Comment on above: Order Comment: Patie nt is a hard stick. 3 Nurses have tried to do an IV. I am waiting to see if they get the IV started. 03/17/2023 22:08:47 EDT Performed By: #### 3 [id number], [id number], [id number], 99664913, [id number], 1475038 ####[facility] (DEFAULT)[address] [place] [address] 38963 Chloride [Moles/Vol] 99 mmol/L Low 101-[address] [facility] Comment on above: Order Comment: Patie nt is a hard stick. 3 Nurses have tried to do an IV. I am waiting to see if they get the IV started. 03/17/2023 22:08:47 EDT Performed By: #### 3 [id number], [id number], [id number], 39211367, 0441523133, 7604198 ####[facility] (DEFAULT)[address] [place] [address] 75701 Creatinine [Mass/Vol] 1.01 mg/dL Normal 0.60-1.30 [facility] Comment on above: Order Comment: Patie nt is a hard stick. 3 Nurses have tried to do an IV. I am waiting to see if they get the IV started. 03/17/2023 22:08:47 EDT Performed By: #### 3 [id number], [id number], [id number], 59105525, [id number], 8822722 ####[facility] (DEFAULT)[address] [place] [address] 31173 Globulin (S) [Mass/Vol] 3.7 g/dL Normal 1.5-4.3 [facility] Comment on above: Order Comment: Patie nt is a hard stick. 3 Nurses have tried to do an IV. I am waiting to see if they get the IV started. 03/17/2023 22:08:47 EDT Performed By: #### 3 [id number], [id number], [id number], 15834695, 8153950371, 3723893 ####[facility] (DEFAULT)[address] [place] [address] 31570 Glucose [Mass/Vol] 455.0 mg/dL High 74.0-118.0 [facility] Comment on above: Order Comment: Patie nt is a hard stick. 3 Nurses have tried to do an IV. I am waiting to see if they get the IV started. 03/17/2023 22:08:47 EDT Performed By: #### 3 [id number], [id number], 6530503826, 44456454, 2307352119, 2042325 ####[facility] (DEFAULT)[address] [place] [address] 58795 Osmolality 272 mOsm/L Invalid Interpretation Code [facility] Comment on above: Order Comment: Patie nt is a hard stick. 3 Nurses have tried to do an IV. I am waiting to see if they get the IV started. 03/17/2023 22:08:47 EDT Performed By: #### 3 [id number], [id number], 2053865576, 93688586, [id number], 0593851 ####[facility] (DEFAULT)[address] [place] [address] 33890 Protein [Mass/Vol] 8.0 g/dL Normal 6.5-8.1 [facility] Comment on above: Order Comment: Patie nt is a hard stick. 3 Nurses have tried to do an IV. I am waiting to see if they get the IV started. 03/17/2023 22:08:47 EDT Performed By: #### 3 [id number], [id number], 0150843547, 93792594, 6347853743, 9544841 ####[facility] (DEFAULT)[address] [place] [address] 88861 Sodium [Moles/Vol] 125.0 mmol/L Low 136.0-144.0 [facility] Comment on above: Order Comment: Patie nt is a hard stick. 3 Nurses have tried to do an IV. I am waiting to see if they get the IV started. 03/17/2023 22:08:47 EDT Performed By: #### 3 [id number], [id number], 2385864007, 89725394, 2059938779, 7968013 ####[facility] (DEFAULT)[address] [place] [address] 54572 Urea nitrogen [Mass/Vol] 16 mg/dL Normal 8-26 [facility] Comment on above: Order Comment: Patie nt is a hard stick. 3 Nurses have tried to do an IV. I am waiting to see if they get the IV started. 03/17/2023 22:08:47 EDT Performed By: #### 3 [id number], [id number], 5155680964, 20731509, 0262472280, 6326429 ####[facility] (DEFAULT)[address] [place] [address] 98482 Urea nitrogen/Creatinine [Mass ratio] 15.8 mg/mg Normal 4.6-16.2 [facility] Comment on above: Order Comment: Patie nt is a hard stick. 3 Nurses have tried to do an IV. I am waiting to see if they get the IV started. 03/17/2023 22:08:47 EDT Performed By: #### 3 [id number], [id number], 7182434355, 05390073, 5874469623, 6835834 ####[facility] (DEFAULT)[address] [place] [address] 55644 Potassium [Moles/Vol] 4.6 mmol/L Normal 3.6-5.1 [facility] Comment on above: Order Comment: Patie nt is a hard stick. 3 Nurses have tried to do an IV. I am waiting to see if they get the IV started. 03/17/2023 22:08:47 EDT Result Comment: Delt a check reviewed with RN Performed By: #### 3 [id number], [id number], 2141551626, 08575053, 7567429231, 8198149 ####[facility] (DEFAULT)[address] [place] [address] 08545 CO2 [Moles/Vol] mmol/L Low 21-32 [facility] Comment on above: Order Comment: Patie nt is a hard stick. 3 Nurses have tried to do an IV. I am waiting to see if they get the IV started. 03/17/2023 22:08:47 EDT Result Comment: Resu lts Verified by Repeat Analysis Performed By: #### 3 [id number], [id number], 1308847556, 67438220, 2164880113, 8588709 ####[facility] (DEFAULT)[address] [place] [address] 21815 Consent Formson 03-17-2023 Consent Forms [id number] #1.00OTGTIFF [facility] ED Note - Physicianon 2022 [...] Social History Medical history: Resolved Diabetes mellitus (897608432): Resolved. . Surgical history: No active procedure [...] Lab Collect T (more content not included)... Normal [facility] Ethanol.on 03-17-2023 Ethanol Level <5.0 Normal 0.0-5.0 [facility] Comment on above: Order Comment: Patie [...] blood. 03/17/2023 22:18:48 EDT Performed By: #### 6 [id number] #### [facility] (DEFAULT) [address] [place] [address] 62686 Ketone Serumon 03-17-2023 Ketone Serum Small Normal Negative [facility] Comment on above: Performed By: #### 6 [id number] ####[facility] (DEFAULT)[address] [place] [address] 23112 Test Serum 1on Preg Serum Internal Control OK Normal [facility] Comment on above: Order Comment: Patie nt is a hard stick. 3 Nurses have tried to do an IV. I am waiting to see if they get the IV started. 03/17/2023 22:08:47 EDT Performed By: #### 3 [id number], [id number], 8467045338, 45413486, 2386341709, 5009039 ####[facility] (DEFAULT)[address] [place] [address] 78312 Test Serum Qual Negative Normal [facility] Comment on above: Order Comment: Patie nt is a hard stick. 3 Nurses have tried to do an IV. I am waiting to see if they get the IV started. 03/17/2023 22:08:47 EDT Performed By: #### 3 [id number], [id number], 0498888391, 39283839, 0267362488, 3362046 ####[facility] (DEFAULT)[address] [place] [address] 42591 Salicylateon 03-17-2023 Salicylate Lvl <4.0 Normal 0.0-30.0 [facility] Comment on above: Performed By: #### 2 [id number], [id number] ####[facility] (DEFAULT)[address] [place] [address] Telemetry Stripson Telemetry Strips [id number] #1.00OTGTIFF Normal [facility] TnI HSon 03-17-2023 Troponin I High Sensitivity 3869.7 pg/mL Critically abnormal <=15.0 [facility] Comment on above: Order Comment: Patie nt is a hard stick. 3 Nurses have tried to do an IV. I am waiting to see if they get the IV started. 03/17/2023 22:08:47 EDT Result Comment: Crit ical result TNIHS 3869.7 pg/mL called to and read back by Nora Bliss RN in ER at 17-Mar-2023 23:51 by Isaiah. Performed By: #### 3 [id number], [id number], 7808009712, 59393789, 8890045739, 1476820 ####[facility] (DEFAULT)[address] [place] [address] 99623 Triage Panel 12on 03-17-2023 Triage Internal Control Pass Normal [facility] Comment on above: Performed By: #### 1 [id number], 93439674, 5686230988, 5048837 ####[facility] (DEFAULT)[address] [place] [address] 72834 U Amph Scr Negative Normal [facility] Comment on above: Performed By: #### 1 [id number], 35882410, 2368357018, 0350169 ####[facility] (DEFAULT)[address] [place] [address] 29125 U Landy Scr Negative Normal [facility] Comment on above: Performed By: #### 1 [id number], 14127049, 4180724837, 8240547 ####[facility] (DEFAULT)[address] [place] [address] 44646 U Benzodia Scr Negative Normal [facility] Comment on above: Performed By: #### 1 [id number], 29989367, 3693814836, 7088405 ####[facility] (DEFAULT)[address] [place] [address] 39016 U Cannab Scrn Negative Normal [facility] Comment on above: Performed By: #### 1 [id number], 94880355, 7008348110, 2147732 ####[facility] (DEFAULT)[address] [place] [address] 10864 U Cocaine Scr Negative Normal [facility] Comment on above: Performed By: #### 1 [id number], 99261955, 3154335145, 4382926 ####[facility] (DEFAULT)[address] [place] [address] 87464 U Methadone Scr Negative Normal [facility] Comment on above: Performed By: #### 1 [id number], 22675678, 4168693681, 8869454 ####[facility] (DEFAULT)[address] [place] [address] 49540 U Methamp Scrn Negative Normal [facility] Comment on above: Performed By: #### 1 [id number], 91215693, 7595273444, 7302709 ####[facility] (DEFAULT)[address] [place] [address] 89353 U Opiate Scr Negative Normal [facility] Comment on above: Performed By: #### 1 [id number], 74939131, 1721384544, 4429159 ####[facility] (DEFAULT)[address] [place] [address] U Oxycod Scr Negative Normal [facility] Comment on above: Performed By: #### 1 241197112, 25974628, 9911975098, 0430545 ####[facility] (DEFAULT)[address] [place] [address] U Phencyclidine Scr Negative Normal [facility] Comment on above: Performed By: #### 1 [id number], 02275872, 2304211559, 4841511 ####[facility] (DEFAULT)[address] [place] [address] U Propoxyphene Scr Negative Normal [facility] Comment on above: Performed By: #### 1 [id number], 05100282, 7823501467, 6924545 ####[facility] (DEFAULT)[address] [place] [address] U Tricyclic Antidepress Scr Negative Normal [facility] Comment on above: Result Comment: Resu [...] PPX Propoxyphene (Norpropoxyphene): 300 ng/mL THC Cannabinoids (35-zdj-6-carboxy- -THC): 50 ng/mL TCA Tricyclic-Antidepressants (Desipramine): 300 ng/mL Performed By: #### 1 [id number], 16190799, 4347799387, 9855744 ####[facility] (DEFAULT)[address] [place] [address] 43688 Urine Source Voided [facility] Comment on above: Performed By: #### 1 [id number], 93705008, 9370080284, 9562514 ####[facility] (DEFAULT)[address] [place] [address] UA [id number] 03-17-2023 UA Amorph. 1+ [facility] Comment on above: Order Comment: Urina lysis Microscopic order added on by [employer] Expert Rules system. Performed By: #### 1 [id number], 03216835, 2508543633, 3895279 ####[facility] (DEFAULT)[address] [place] [address] UA Bacteria 4+ [facility] Comment on above: Order Comment: Urina lysis Microscopic order added on by Discern Expert Rules system. Performed By: #### 1 [id number], 54134859, 9513711186, 5730088 ####[facility] (DEFAULT)[address] [place] [address] UA RBC 5-10 [facility] Comment on above: Order Comment: Urina lysis Microscopic order added on by [employer] Expert Rules system. Performed By: #### 1 [id number], 92357942, 9511565399, 8318213 ####[facility] (DEFAULT)[address] [place] [address] 56451 UA Squam Epi Many [facility] Comment on above: Order Comment: Urina lysis Microscopic order added on by Discern Expert Rules system. Performed By: #### 1 [id number], 02038218, 0313511396, 9237487 ####[facility] (DEFAULT)[address] [place] [address] UA WBC 0-2 [facility] Comment on above: Order Comment: Urina lysis Microscopic order added on by [employer] Expert Rules system. Performed By: #### 1 [id number], 89367475, 4954758053, 9200791 ####[facility] (DEFAULT)[address] [place] [address] UA w Culture if Ind Standard on 03-17-2023 Breakpoint UA Normal [facility] Comment on above: Performed By: #### 1 [id number], 12892785, 3995928393, 8960076 ####[facility] (DEFAULT)[address] [place] [address] Color (U) Yellow Normal [facility] Comment on above: Performed By: #### 1 [id number], 70777753, 6879399941, 5432909 ####[facility] (DEFAULT)[address] [place] [address] Culture? Indicated Invalid Interpretation Code [facility] Comment on above: Result Comment: Resu lt created by rule GL_MAGR_ADD_UA_CULT Performed By: #### 1 [id number], 65833284, 5038135553, 8316861 ####[facility] (DEFAULT)[address] [place] [address] Glucose (U) [Mass/Vol] 500 mg/dL Normal [facility] Comment on above: Performed By: #### 1 [id number], 33729009, 8432784722, 7692444 ####[facility] (DEFAULT)[address] [place] [address] Ketones Ql (U) >=80 Normal [facility] Comment on above: Performed By: #### 1 [id number], 41362405, 9207822796, 4971852 ####[facility] (DEFAULT)[address] [place] [address] Micro? Indicated Invalid Interpretation Code [facility] Comment on above: Result Comment: Resu lt created by rule GL_MAGR_ADD_UA_MICRO Result created by rule GL_MAGR_ADD_UA_MICRO Performed By: #### 1 [id number], 41189933, 5689860374, 0829999 ####[facility] (DEFAULT)[address] [place] [address] UA Bilirubin Negative Normal [facility] Comment on above: Performed By: #### 1 [id number], 96726340, 8390780317, 4303424 ####[facility] (DEFAULT)[address] [place] [address] 11599 UA Blood LARGE Abnormal NEGATIVE [facility] Comment on above: Performed By: #### 1 [id number], 38618397, 4574929703, 0032409 ####[facility] (DEFAULT)[address] [place] [address] 30049 UA Clarity SL CLOUDY Abnormal CLEAR [facility] Comment on above: Performed By: #### 1 [id number], 98212857, 7473957064, 1345538 ####[facility] (DEFAULT)[address] [place] [address] 50097 UA Leuk Est Negative Normal NEGATIVE [facility] Comment on above: Performed By: #### 1 [id number], 72506080, 9122825960, 4789191 ####[facility] (DEFAULT)[address] [place] [address] 22929 UA Nitrite Negative Normal NEGATIVE [facility] Comment on above: Performed By: #### 1 [id number], 94541682, 6824968828, 4496750 ####[facility] (DEFAULT)[address] [place] [address] 16979 UA pH 6.0 Normal 5-8 [facility] Comment on above: Performed By: #### 1 [id number], 67160078, 7844781971, 0949419 ####[facility] (DEFAULT)[address] [place] [address] 43699 UA Protein 30 Abnormal NEGATIVE [facility] Comment on above: Performed By: #### 1 [id number], 33684405, 8240099857, 1763062 ####[facility] (DEFAULT)[address] [place] [address] 97862 UA Spec Grav >=1.030 Normal 1.001-1.035 [facility] Comment on above: Performed By: #### 1 [id number], 32506988, 4056188007, 8695207 ####[facility] (DEFAULT)[address] [place] [address] 02381 UA Urobilinogen 0.2 mg/dL Normal 0.2-1.0 [facility] Comment on above: Performed By: #### 1 [id number], 96051378, 9356439217, 7949485 ####[facility] (DEFAULT)[address] [place] [address] Urine Source Voided [facility] Comment on above: Performed By: #### 1 [id number], 90913869, 3271720941, 9680272 ####[facility] (DEFAULT)[address] [place] [address] XR Chest 1 View Frontalon XR Chest [...] Wang DO 03/18/23 8:44 am Technologist: MADHAVI [facility] .Auto Diff 1on 03-16-2023 Auto Bremer % 3 % Normal 1-12 [facility] Comment on above: Performed By: #### 6 [id number] #### [facility] (DEFAULT) [address] [place] [address] 92888 Baso Abs# 0.1 x10 Normal 0.0-0.2 [facility] Comment on above: Performed By: #### 6 [id number] #### [facility] (DEFAULT) [address] [place] [address] 92041 Basophils/100 WBC (Bld) 1.3 % Normal 0.2-2.0 [facility] Comment on above: Performed By: #### 6 [id number] #### [facility] (DEFAULT) [address] [place] [address] 86559 Eos Abs# 0.0 x10 Normal 0.0-0.4 [facility] Comment on above: Performed By: #### 6 [id number] #### [facility] (DEFAULT) [address] [place] [address] Eosinophils/100 WBC (Bld) 0.0 % Low 0.9-4.0 [facility] Comment on above: Performed By: #### 6 [id number] #### [facility] (DEFAULT) [address] [place] [address] Lymph Abs# 0.9 x10 Low 1.3-2.9 [facility] Comment on above: Performed By: #### 6 [id number] #### [facility] (DEFAULT) [address] [place] [address] Lymphocytes/100 WBC (Bld) 11 % Low 14-48 [facility] Comment on above: Performed By: #### 6 [id number] #### [facility] (DEFAULT) [address] [place] [address] Bremer Abs# 0.2 x10 Normal 0.0-0.8 [facility] Comment on above: Performed By: #### 6 [id number] #### [facility] (DEFAULT) [address] [place] [address] Neut Abs# 6.6 x10 Normal 1.5-9.2 [facility] Comment on above: Performed By: #### 6 [id number] #### [facility] (DEFAULT) [address] [place] [address] Neutrophils/100 WBC (Bld) 85 % Normal 44-88 [facility] Comment on above: Performed By: #### 6 [id number] #### [facility] (DEFAULT) [address] [place] [address] .QC SARS-CoV-2 (COVID-19)/Fl u/RSV (GeneXpert)on 03-16-2023 Internal Control Pass [facility] Comment on above: Order Comment: Order ed by Eleanor.[[email or web address]] Performed By: #### 6 [id number] #### [facility] (DEFAULT) [address] [place] [address] Acetone Qlon 03-16-2023 Acetone SMALL [facility] Comment on above: Performed By: #### 6 [id number] ####[facility] (DEFAULT)[address] [place] [address] 72196 Arterial Blood Gas Standardo n 03-16-2023 Base Excess Art -21.7 mmol/L Low -3.3-2.3 [facility] Comment on above: Performed By: #### 6 [id number] #### [facility] (DEFAULT) [address] [place] [address] Breakpoint Hemo [facility] Comment on above: Performed By: #### 6 [id number] #### [facility] (DEFAULT) [address] [place] [address] 00094 Device Room Air Normal [facility] Comment on above: Performed By: #### 6 [id number] #### [facility] (DEFAULT) [address] [place] [address] 98341 Fio2 Art 21.0 % Normal 21.0-100.0 [facility] Comment on above: Performed By: #### 6 [id number] #### [facility] (DEFAULT) [address] [place] [address] 25629 HCO3 (Bld) [Moles/Vol] 6.0 mmol/L Low 22.0-27.0 [facility] Comment on above: Performed By: #### 6 [id number] #### [facility] (DEFAULT) [address] [place] [address] 48711 Oxygen saturation in Blood 97.9 % Normal 95.0-100.0 [facility] Comment on above: Performed By: #### 6 [id number] #### [facility] (DEFAULT) [address] [place] [address] 83482 pCO2 Art 19 mmHg Critically abnormal 34-44 [facility] Comment on above: Result Comment: Resu lts handed to Dr Gonzalez by on 03/16/23 @ 1045 Performed By: #### 6 [id number] #### [facility] (DEFAULT) [address] [place] [address] 13207 pH Art 7.11 Critically abnormal 7.37-7.44 [facility] Comment on above: Result Comment: Resu lts handed to Dr Gonzalez by on 03/16/23 @ 1045, RBD Performed By: #### 6 [id number] #### [facility] (DEFAULT) [address] [place] [address] 45414 pO2 Art 208 mmHg High 75-100 [facility] Comment on above: Performed By: #### 6 [id number] #### [facility] (DEFAULT) [address] [place] [address] 55801 Puncture Site Right Brachial Normal [facility] Comment on above: Performed By: #### 6 [id number] #### [facility] (DEFAULT) [address] [place] [address] 14432 Rate: 18 Invalid Interpretation Code [facility] Comment on above: Performed By: #### 6 [id number] #### [facility] (DEFAULT) [address] [place] [address] 20831 BMP Standardon 03-16-2023 eGFR Non AA >60 Invalid Interpretation Code [facility] Comment on above: Order Comment: While on Insulin Drip Performed By: #### 4 [id number] #### [facility] (DEFAULT) [address] [place] [address] 97499 eGFR AA >60 Invalid Interpretation Code [facility] Comment on above: Order Comment: While on Insulin Drip Performed By: #### 4 [id number] #### [facility] (DEFAULT) [address] [place] [address] 16745 Anion gap [Moles/Vol] 14.8 mmol/L Normal 5.0-19.0 [facility] Comment on above: Order Comment: While on Insulin Drip Performed By: #### 4 [id number] #### [facility] (DEFAULT) [address] [place] [address] 91947 Calcium [Mass/Vol] 7.7 mg/dL Low 8.9-10.3 [facility] Comment on above: Order Comment: While on Insulin Drip Performed By: #### 4 [id number] #### [facility] (DEFAULT) [address] [place] [address] 50032 Chloride [Moles/Vol] 108 mmol/L Normal 101-[address] [facility] Comment on above: Order Comment: While on Insulin Drip Performed By: #### 4 [id number] #### [facility] (DEFAULT) [address] [place] [address] 32355 CO2 [Moles/Vol] 14 mmol/L Low 21-32 [facility] Comment on above: Order Comment: While on Insulin Drip Performed By: #### 4 [id number] #### [facility] (DEFAULT) [address] [place] [address] 49848 Creatinine [Mass/Vol] 0.69 mg/dL Normal 0.60-1.30 [facility] Comment on above: Order Comment: While on Insulin Drip Performed By: #### 4 [id number] #### [facility] (DEFAULT) [address] [place] [address] 26970 Glucose [Mass/Vol] 295.0 mg/dL High 74.0-118.0 [facility] Comment on above: Order Comment: While on Insulin Drip Performed By: #### 4 [id number] #### [facility] (DEFAULT) [address] [place] [address] 92040 Osmolality 278 mOsm/L Invalid Interpretation Code [facility] Comment on above: Order Comment: While on Insulin Drip Performed By: #### 4 [id number] #### [facility] (DEFAULT) [address] [place] [address] 12205 Potassium [Moles/Vol] 3.8 mmol/L Normal 3.6-5.1 [facility] Comment on above: Order Comment: While on Insulin Drip Result Comment: Pota ssium Therapy Performed By: #### 4 [id number] #### [facility] (DEFAULT) [address] [place] [address] [id number] Sodium [Moles/Vol] 133.0 mmol/L Low 136.0-144.0 [facility] Comment on above: Order Comment: While on Insulin Drip Performed By: #### [id number] #### [facility] (DEFAULT) [address] [place] [address] [id number] Urea nitrogen [Mass/Vol] 16 mg/dL Normal 8-26 [facility] Comment on above: Order Comment: While on Insulin Drip Performed By: #### [id number] #### [facility] [facility] (DEFAULT) [address] [place] [address] 86149 Urea nitrogen/Creatinine [Mass ratio] 23.1 mg/mg High 4.6-16.2 [facility] Comment on above: Order Comment: While on Insulin Drip Performed By: #### 4 [id number] #### [facility] (DEFAULT) [address] [place] [address] 34534 CBC w/ Auto Diffon 3 Erythrocyte distribution width (RBC) [Ratio] 15.4 % High 11.5-15.0 [facility] Comment on above: Performed By: #### 6 [id number] #### [facility] (DEFAULT) [address] [place] [address] Hematocrit (Bld) [Volume fraction] 41.6 % High 33.7-40.4 [facility] Comment on above: Performed By: #### 6 [id number] #### [facility] (DEFAULT) [address] [place] [address] Hemoglobin (Bld) [Mass/Vol] 13.1 g/dL Normal 11.3-15.9 [facility] Comment on above: Performed By: #### 6 [id number] #### [facility] (DEFAULT) [address] [place] [address] Man Diff? Auto Invalid Interpretation Code [facility] Comment on above: Performed By: #### 6 [id number] #### [facility] (DEFAULT) [address] [place] [address] 28827 MCH (RBC) [Entitic mass] 25 pg Normal 24-34 [facility] Comment on above: Performed By: #### 6 [id number] #### [facility] (DEFAULT) [address] [place] [address] 50842 MCHC (RBC) [Mass/Vol] 32 g/dL Normal 26-37 [facility] Comment on above: Performed By: #### 6 [id number] #### [facility] (DEFAULT) [address] [place] [address] 69740 MCV (RBC) [Entitic vol] 81 fL Normal 81-100 [facility] Comment on above: Performed By: #### 6 [id number] #### [facility] (DEFAULT) [address] [place] [address] 02161 Platelet 298 x10 Normal 138-427 [facility] Comment on above: Performed By: #### 6 [id number] #### [facility] (DEFAULT) [address] [place] [address] 93290 Platelet mean volume (Bld) [Entitic vol] 8.6 fL Normal 6.3-10.2 [facility] Comment on above: Performed By: #### 6 [id number] #### [facility] (DEFAULT) [address] [place] [address] RBC 5.14 x10 Normal 3.70-5.30 [facility] Comment on above: Performed By: #### 6 [id number] #### [facility] (DEFAULT) [address] [place] [address] 87062 WBC 7.8 x10 Normal 3.5-10.5 [facility] Comment on above: Performed By: #### 6 [id number] #### [facility] (DEFAULT) [address] [place] [address] CMP Standardon 03-16-2023 Breakpoint Chem Normal [facility] Comment on above: Performed By: #### 6 [id number] #### [facility] (DEFAULT) [address] [place] [address] 91463 eGFR Non AA >60 Invalid Interpretation Code [facility] Comment on above: Performed By: #### 6 [id number] #### [facility] (DEFAULT) [address] [place] [address] 09098 eGFR AA >60 Invalid Interpretation Code [facility] Comment on above: Performed By: #### 6 [id number] #### [facility] (DEFAULT) [address] [place] [address] 29130 Albumin [Mass/Vol] 3.9 g/dL Normal 3.5-5.0 [facility] Comment on above: Performed By: #### 6 [id number] #### [facility] (DEFAULT) [address] [place] [address] Albumin/Globulin [Mass ratio] 1.1 {ratio} Low 1.4-2.6 [facility] Comment on above: Performed By: #### 6 [id number] #### [facility] (DEFAULT) [address] [place] [address] 42794 Alk Phos 76 IU/L Normal 32-91 [facility] Comment on above: Performed By: #### 6 [id number] #### [facility] (DEFAULT) [address] [place] [address] 88256 ALT [Catalytic activity/Vol] 17.0 U/L Normal 14.0-54.0 [facility] Comment on above: Performed By: #### 6 [id number] #### [facility] (DEFAULT) [address] [place] [address] 59502 Anion gap [Moles/Vol] 26.3 mmol/L High 5.0-19.0 [facility] Comment on above: Performed By: #### 6 [id number] #### [facility] (DEFAULT) [address] [place] [address] 02450 AST [Catalytic activity/Vol] 19 U/L Normal 15-41 [facility] Comment on above: Performed By: #### 6 [id number] #### [facility] (DEFAULT) [address] [place] [address] 51141 Bili Total 1.6 mg/dL High 0.3-1.2 [facility] Comment on above: Performed By: #### 6 [id number] #### [facility] (DEFAULT) [address] [place] [address] 28716 Calcium [Mass/Vol] 8.0 mg/dL Low 8.9-10.3 [facility] Comment on above: Performed By: #### 6 [id number] #### [facility] (DEFAULT) [address] [place] [address] 14365 Chloride [Moles/Vol] 97 mmol/L Low 101-[address] [facility] Comment on above: Performed By: #### 6 [id number] #### [facility] (DEFAULT) [address] [place] [address] 55583 CO2 [Moles/Vol] 8 mmol/L Low 21-32 [facility] Comment on above: Performed By: #### 6 [id number] #### [facility] (DEFAULT) [address] [place] [address] 57462 Creatinine [Mass/Vol] 0.99 mg/dL Normal 0.60-1.30 [facility] Comment on above: Performed By: #### 6 [id number] #### [facility] (DEFAULT) [address] [place] [address] 20473 Globulin (S) [Mass/Vol] 3.4 g/dL Normal 1.5-4.3 [facility] Comment on above: Performed By: #### 6 [id number] #### [facility] (DEFAULT) [address] [place] [address] 50969 Glucose [Mass/Vol] 645.0 mg/dL Critically abnormal 74.0-118.0 [facility] Comment on above: Result Comment: Crit ical result GLU 645 mg/dL called to and read back by Sanjuana BENSON RN at 16-Mar-2023 11:05 by Anahy. Performed By: #### 6 [id number] #### [facility] (DEFAULT) [address] [place] [address] 43085 Osmolality 285 mOsm/L Invalid Interpretation Code [facility] Comment on above: Performed By: #### 6 [id number] #### [facility] (DEFAULT) [address] [place] [address] 10819 Potassium [Moles/Vol] 5.3 mmol/L High 3.6-5.1 [facility] Comment on above: Performed By: #### 6 [id number] #### [facility] (DEFAULT) [address] [place] [address] 57957 Protein [Mass/Vol] 7.3 g/dL Normal 6.5-8.1 [facility] Comment on above: Performed By: #### 6 [id number] #### [facility] (DEFAULT) [address] [place] [address] 05336 Sodium [Moles/Vol] 126.0 mmol/L Low 136.0-144.0 [facility] Comment on above: Performed By: #### 6 [id number] #### [facility] (DEFAULT) [address] [place] [address] 68984 Urea nitrogen [Mass/Vol] 16 mg/dL Normal 8-26 [facility] Comment on above: Performed By: #### 6 [id number] #### [facility] (DEFAULT) [address] [place] [address] 62440 Urea nitrogen/Creatinine [Mass ratio] 16.1 mg/mg Normal 4.6-16.2 [facility] Comment on above: Performed By: #### 6 [id number] #### [facility] (DEFAULT) [address] [place] [address] 23467 COVID/Flu/RSV (GeneXpert)on 03-16-2023 Flu A (GXpert COVFLURSV) Negative Normal Negative [facility] Comment on above: Performed By: #### 6 [id number] #### [facility] (DEFAULT) [address] [place] [address] 23597 Flu B (GXpert COVFLURSV) Negative Normal Negative [facility] Comment on above: Performed By: #### 6 [id number] #### [facility] (DEFAULT) [address] [place] [address] 61282 RSV (GXpert COVFLURSV) Negative Normal Negative [facility] Comment on above: Performed By: #### 6 [id number] #### [facility] (DEFAULT) [address] [place] [address] 45260 SARS-CoV-2 (COVID-19) RNA CARMEN+probe Ql (Unsp spec) Positive Critically abnormal Negative [facility] Comment on above: Result Comment: Resu lts Called To September By TB And Read Back For Confirmation On 03/16/2023 11:14:35 EDT. Performed by PCR methodology. Performed By: #### 6 [id number] #### [facility] (DEFAULT) [address] [place] [address] 13903 ED Clinical Summaryon 2022 ED Clinical Summary [facility] - Emergency Department [address] [place] [address] ED Clinical Summary PERSON INFORMATION Name: DOUGLAS CORDOVA Age: 27 Years Sex: FEMALE : 1995 MRN: Acct#: Visit Reason: Hyperglycemia; DKA, COVID + Arrival: 03/16/2023 09:20:00 Discharge: LOS: 000 03:32 Check In: 03/16/2023 09:20:00 Checkout:03/16/2023 12:52:50 Address: [address] [facility] [address] PCP: ARCADIO IGLESIAS PROVIDER INFORMATION Provider Role [...] ketoacidosis; 2:COVID-19 Patient Understands: Yes - Patient/family/careg iver verbalizes understanding of instructions given Comment: [facility] ED Note-Nursingon 03-16-2023 ED Note-Nursing Patient presents with complaints of increased blood sugar. Patient with a history of Type 1 diabetes. Patient in insulin, however states she has not had her insulin in 3 days because she has not been able to get her prescription. Patient also complains of nausea and vomiting. Patient with an obvious acetone smell about her. [facility] ED Patient Education Noteon 03-16-2023 ED Patient Education Note Education Materials [facility] ED Patient Summaryon 023 ED Patient Summary [facility] - Emergency Department [address] [place], [place] [id number] PATIENT DISCHARGE INSTRUCTIONS Patient Information Name: DOUGLAS CORDOVA Age: 27 Years Date of : 1995 Reason For Visit: Hyperglycemia; DKA, COVID + Arrival Time: 03/16/2023 09:20:00 Primary Care Physician: ARCADIO IGLESIAS Attending Physician: Macy Armenta MD Comment: Visit Diagnosis: Diagnoses This Visit COVID-19 (U07.1) Diabetic ketoacidosis (E11.10) Hyperglycemia (925892801) The Pharmacy at [facility] is open Friday through Friday from [...] alcohol and/or drug addiction problems; contact the [facility] 20/01 Crisis Hotline -Text 2OVAC tz [phone]. If you received any narcotics, sedation, or [...] and treatment you received today in the [facility] Emergency Department were for an urgent problem and are not intended as complete care. It is important for you to follow up with a doctor, nurse practitioner, or physician?s email marketing assistant for ongoing care. If your symptoms [...] so we can reach you if necessary. [facility] Emergency Department has provided you with a complete list of medications post discharge. Please inform your unarmed security officer/provider of your visit and for further instruction on these medications. Any specific questions regarding your chronic medications and dosages should be discussed with your primary care physician(s) and/or pharmacist. Medications to Continue That Have Not Changed Other Medications amphetamine-dextroam phetamine (amphetamine-dextroa mphetamine 30 mg oral capsule, extended release) carisoprodol (carisoprodol 350 mg oral tablet) Durable Medical Equipment for Prescription ([employer] PODS (GEN 4) 5PK) See instructions. gabapentin [...] Cough ? (more content not included)... Normal [facility] Magnesiumon 03-16-2023 Magnesium [Mass/Vol] 1.82 mg/dL Normal 1.80-2.[address] [facility] Comment on above: Performed By: #### 6 [id number] #### [facility] (DEFAULT) [address] [place] [address] 08776 POCT Glucose Levelon 023 Glucose [Mass/Vol] 210 mg/dL High [address] [place] [address] Comment on above: Performed By: #### 4 [id number] #### [facility] (DEFAULT) [address] [place] [address] 27810 Glucose [Mass/Vol] 236 mg/dL High [address] [place] [address] Comment on above: Performed By: #### 4 [id number] #### [facility] (DEFAULT) [address] [place] [address] 11195 Glucose [Mass/Vol] 297 mg/dL High [address] [place] [address] Comment on above: Performed By: #### 6 [id number] #### [facility] (DEFAULT) [address] [place] [address] 56684 Glucose [Mass/Vol] 273 mg/dL High [address] [place] [address] Comment on above: Performed By: #### 4 [id number] #### [facility] (DEFAULT) [address] [place] [address] 57713 Glucose [Mass/Vol] 297 mg/dL High [address] [place] [address] Comment on above: Performed By: #### 4 [id number] #### [facility] (DEFAULT) [address] [place] [address] Glucose [Mass/Vol] 563 mg/dL Critically abnormal 74-118 [facility] Comment on above: Performed By: #### 4 [id number] #### [facility] (DEFAULT) [address] [place] [address] 12186 Test Serum 1on Preg Serum Internal Control OK Normal [facility] Comment on above: Performed By: #### 4 [id number] #### [facility] (DEFAULT) [address] [place] [address] 29832 Test Serum Qual Negative [facility] Comment on above: Performed By: #### 4 [id number] #### [facility] (DEFAULT) [address] [place] [address] 30248 Progress Note - Nurseon 02-28 Progress Note - Nurse This bottle house cleaners supervisor called to urgent care waiting room area by clerical staff-advised that pt was discharged from hospital and needed a ride home. Upon further investigation, pt was found to have signed out AMA from [facility], confirmed with [facility] chief solution architect-and advised staff that she would be walking home. This bottle house cleaners supervisor follows up with patient. Pt sitting in urgent care waiting area with emesis bag in hand, barefoot, tearful. Pt advises she did check herself out of care against medical advice. This bottle house cleaners supervisor asks if she feels safe to go home at this time and if she has access to her insulin-pt advises she does. This bottle house cleaners supervisor asks if she could use any additional assistance or resources, pt declines. Pt provided with slipper socks, ekg patches removed from legs and arms, walked to ER waiting area and provided with diet drink and taxi voucher for $7.00 to return to [facility], after hours taxi transporting her home. [Electronically Signed on: 03/16/2023 17:51 EDT] Shellie Turner RN [Verified on: 03/16/2023 17:51 EDT] Shellie Turner RN [facility] Progress Note - Nurse Patient left with all of her belongings and walked out of room to elevator without any socks. [Electronically Signed on: 03/16/2023 18:10 EDT] Aster Bernal RN [Verified on: 03/16/2023 18:10 EDT] Aster Bernal RN [facility] Progress Note - Nurse Upon doing assessment/ admission history patient requested something to drink. I informed her and reminded her that every time she drinks she has a large emesis. She didn't like that I refused her fluids and she said she wanted to leave. I had her sign an AMA paper. Then I notified Dr. Armenta and Suzi the bottle house cleaners supervisor. [Electronically Signed on: 03/16/2023 17:46 EDT] Aster Bernal RN [Verified on: 03/16/2023 17:46 EDT] Aster Bernal RN [facility] UA [id number] 03-16-2023 UA Amorph. 1+ [facility] Comment on above: Order Comment: Urina lysis Microscopic order added on by [employer] Expert Rules system. Performed By: #### 5 [id number], [id number] #### [facility] (DEFAULT) [address] [place] [address] UA Bacteria Rare [facility] Comment on above: Order Comment: Urina lysis Microscopic order added on by [employer] system. Performed By: #### 5 [id number], [id number] #### [facility] (DEFAULT) [address] [place] [address] UA RBC 0-2 [facility] Comment on above: Order Comment: Urina lysis Microscopic order added on by [employer] system. Performed By: #### 5 [id number], [id number] #### [facility] (DEFAULT) [address] [place] [address] UA Squam Epi Few [facility] Comment on above: Order Comment: Urina lysis Microscopic order added on by [employer] system. Performed By: #### 5 [id number], [id number] #### [facility] (DEFAULT) [address] [place] [address] UA WBC None Seen [facility] Comment on above: Order Comment: Urina lysis Microscopic order added on by [employer] system. Performed By: #### 5 [id number], [id number] #### [facility] (DEFAULT) [address] [place] [address] UA w Culture if Ind Standard on 03-16-2023 Breakpoint UA [facility] Comment on above: Performed By: #### 5 [id number], [id number] #### [facility] (DEFAULT) [address] [place] [address] Color (U) Yellow [facility] Comment on above: Performed By: #### 5 [id number], [id number] #### [facility] (DEFAULT) [address] [place] [address] Culture? No [facility] Comment on above: Result Comment: Resu lt created by rule GL_MAGR_ADD_UA_CULT Result created by rule GL_MAGR_ADD_UA_CULT1 Performed By: #### 5 [id number], [id number] #### [facility] (DEFAULT) [address] [place] [address] 83116 Glucose (U) [Mass/Vol] mg/dL Normal [facility] Comment on above: Performed By: #### 5 [id number], [id number] #### [facility] (DEFAULT) [address] [place] [address] 26912 Ketones Ql (U) >=80 Normal [facility] Comment on above: Performed By: #### 5 [id number], [id number] #### [facility] (DEFAULT) [address] [place] [address] 24866 Micro? Indicated Invalid Interpretation Code [facility] Comment on above: Result Comment: Resu lt created by rule GL_MAGR_ADD_UA_MICRO Performed By: #### 5 [id number], [id number] #### [facility] (DEFAULT) [address] [place] [address] 54486 UA Bilirubin Negative Normal [facility] Comment on above: Performed By: #### 5 [id number], [id number] #### [facility] (DEFAULT) [address] [place] [address] 90134 UA Blood TRACE Abnormal NEGATIVE [facility] Comment on above: Performed By: #### 5 [id number], [id number] #### [facility] (DEFAULT) [address] [place] [address] 57661 UA Clarity CLEAR Normal CLEAR [facility] Comment on above: Performed By: #### 5 [id number], [id number] #### [facility] (DEFAULT) [address] [place] [address] 14076 UA Leuk Est Negative Normal NEGATIVE [facility] Comment on above: Performed By: #### 5 [id number], [id number] #### [facility] (DEFAULT) [address] [place] [address] 81468 UA Nitrite Negative Normal NEGATIVE [facility] Comment on above: Performed By: #### 5 [id number], [id number] #### [facility] (DEFAULT) [address] [place] [address] 18517 UA pH 6.0 Normal 5-8 [facility] Comment on above: Performed By: #### 5 [id number], [id number] #### [facility] (DEFAULT) [address] [place] [address] 63464 UA Protein Negative Normal NEGATIVE [facility] Comment on above: Performed By: #### 5 [id number], [id number] #### [facility] (DEFAULT) [address] [place] [address] 94857 UA Spec Grav 1.025 Normal 1.001-1.035 [facility] Comment on above: Performed By: #### 5 [id number], [id number] #### [facility] (DEFAULT) [address] [place] [address] 11284 UA Urobilinogen 0.2 mg/dL Normal 0.2-1.0 [facility] Comment on above: Performed By: #### 5 [id number], [id number] #### [facility] (DEFAULT) [address] [place] [address] Urine Source Clean Catch Normal [facility] Comment on above: Performed By: #### 5 [id number], [id number] #### [facility] (DEFAULT) [address] [place] [address] 27717 ACETONE SERUMon 08-25-2022 ACETONE SMALL Abnormal NEGATIVE [facility] Comment on above: Performed By: #### A CETON, PREG #### [facility] [address] [place] [address] Dr. Darleen Cho CBC AUTO DIFFon 08-25-2022 BASO # 0.1 103/ul Normal 0.0-0.1 [facility] Comment on above: Performed By: #### B MP #### [facility] [address] [place] [address] Dr. Darleen Cho Basophils/100 WBC (Bld) 0.4 % Normal 0.2-2.0 [facility] Comment on above: Performed By: #### B MP #### [facility] [address] [place] [address] Dr. Darleen Cho EO # 0.1 103/ul Normal 0.0-0.7 [facility] Comment on above: Performed By: #### B MP #### [facility] [address] [place] [address] Dr. Darleen Cho Eosinophils/100 WBC (Bld) 0.3 % Critically low 0.9-7.0 [facility] Comment on above: Performed By: #### B MP #### [facility] [address] [address] [address] Darleen Cho Erythrocyte distribution width (RBC) [Ratio] 14.6 % Normal 11.0-15.0 [facility] Comment on above: Performed By: #### B MP #### [facility] [address] [address] [address] Darleen Cho Hematocrit (Bld) [Volume fraction] 43.9 % Normal 36.0-48.0 [facility] Comment on above: Performed By: #### B MP #### [facility] [address] [address] [address] Darleen Cho Hemoglobin (Bld) [Mass/Vol] 13.8 g/dL Normal 12.0-16.0 [facility] Comment on above: Performed By: #### B MP #### [facility] [address] [place] [address] Dr. Darleen Cho IG # 0.25 10e3/ul Critically high 0.00-0.03 [facility] Comment on above: Performed By: #### B MP #### [facility] [address] [address] [address] Darleen Cho IG % 1.1 % Critically high 0.0-0.5 [facility] Comment on above: Performed By: #### B MP #### [facility] [address] [place] [address] Dr. Darleen Cho LYMPH # 2.3 103/ul Normal 1.2-3.8 [facility] Comment on above: Performed By: #### B MP #### [facility] [address] [address] [address] Darleen Cho Lymphocytes/100 WBC (Bld) 10.4 % Critically low 20.5-60.0 [facility] Comment on above: Performed By: #### B MP #### [facility] [address] [address] [address] Darleen Cho MANUAL DIFF REQ NO Normal [facility] Comment on above: Performed By: #### B MP #### [facility] [address] [address] [address] Darleen Cho MCH (RBC) [Entitic mass] 24.1 pg Critically low 26.7-34 .0 [facility] Comment on above: Performed By: #### B MP #### [facility] [address] [place] [address] Dr. Darleen Cho MCHC (RBC) [Mass/Vol] 31.4 g/dL Normal 29.9-35.2 [facility] Comment on above: Performed By: #### B MP #### [facility] [address] [address] [address] Darleen Cho MCV (RBC) [Entitic vol] 76.7 fL Critically low 81.0-99. 0 [facility] Comment on above: Performed By: #### B MP #### [facility] [address] [place] [address] Dr. Darleen Cho MONO # 0.3 103/ul Normal 0.3-0.8 [facility] Comment on above: Performed By: #### B MP #### [facility] [address] [place] [address] Dr. Darleen Cho Monocytes/100 WBC (Bld) 1.2 % Critically low 1.7-12.0 [facility] Comment on above: Performed By: #### B MP #### [facility] [address] [place] [address] Dr. Darleen Cho NEUT # 19.4 103/ul Critically high 1.4-6.5 [facility] Comment on above: Performed By: #### B MP #### [facility] [address] [place] [address] Dr. Darleen Cho Neutrophils/100 WBC (Bld) 86.6 % Critically high 43.0-75.0 [facility] Comment on above: Performed By: #### B MP #### [facility] [address] [place] [address] Dr. Darleen Cho Platelet mean volume (Bld) [Entitic vol] 9.1 fL Critically low 9.5-13.5 [facility] Comment on above: Performed By: #### B MP #### [facility] [address] [address] [address] Darleen Cho PLT 557 103/ul Critically high 150-450 [facility] Comment on above: Performed By: #### B MP #### [facility] [id number] Darleen Cho RBC 5.72 106/ul Critically high 4.20-5.40 [facility] Comment on above: Performed By: #### B MP #### [facility] [id number] Darleen Cho WBC 22.4 103/ul Critically high 4.0-11.0 [facility] Comment on above: Performed By: #### B MP #### [facility] [address] [place] [address] Dr. Darleen Cho CULTURE BLOODon 08-25-2022 Microscopic examination of blood, culture Culture Observations: NO GROWTH AT 5 DAYS. Normal [facility] Comment on above: Performed By: #### B MP #### [facility] [address] [place] [address] Dr. Darleen Cho Microscopic examination of blood, culture Culture Observations: NO GROWTH AT 5 DAYS. Normal [facility] Comment on above: Performed By: #### B MP #### [facility] [address] [place] [address] Dr. Darleen Cho CULTURE URINEon 08-25-2022 CULTURE URINE Culture Observations: NO GROWTH. Normal [facility] Comment on above: Performed By: #### B MP #### [facility] [address] [place] [address] Dr. Darleen Cho [facility]on [facility]-01 SARS-CoV-2 (COVID-19) RNA CARMEN+probe Ql (Unsp spec) Not detected Normal NOT DETECTED [facility] Comment on [...] for this test is supported by the [place] of Health and Human Service's declaration that [...] used). Performed By: #### C VDTBH #### [facility] [address] [place] [address] Dr. Darleen Cho ER URINE PROFILEon 3 Bilirubin Ql (U) SMALL Abnormal NEGATIVE [facility] Comment on above: Performed By: #### U MICRO, ERUR #### [facility] [address] [place] [address] Dr. Darleen Cho Clarity (U) CLEAR Normal CLEAR [facility] Comment on above: Performed By: #### U MICRO, ERUR #### [facility] [address] [place] [address] Dr. Darleen Cho Color (U) LT. YELLOW Normal YELLOW [facility] Comment on above: Performed By: #### U MICRO, ERUR #### [facility] [address] [place] [address] Dr. Darleen Cho ERUAHD A micrscopic examination will be performed if indicated. Normal [facility] Comment on above: Performed By: #### U MICRO, ERUR #### [facility] [address] [place] [address] Dr. Darleen Cho Glucose Ql (U) 500 mg/dl Abnormal NEGATIVE [facility] Comment on above: Performed By: #### U MICRO, ERUR #### [facility] [address] [place] [address] Dr. Darleen Cho Hemoglobin Ql (U) MODERATE Abnormal NEGATIVE [facility] Comment on above: Performed By: #### U MICRO, ERUR #### [facility] [address] [place] [address] Dr. Darleen Cho Ketones Ql (U) >=80 Abnormal NEGATIVE [facility] Comment on above: Performed By: #### U MICRO, ERUR #### [facility] [address] [place] [address] Dr. Darleen Cho LEUKOCYTES Negative Normal NEGATIVE [facility] Comment on above: Performed By: #### U MICRO, ERUR #### [facility] [address] [address] [address] Darleen Cho Nitrite Ql (U) Negative Normal NEGATIVE [facility] Comment on above: Performed By: #### U MICRO, ERUR #### [facility] [address] [place] [address] Dr. Darleen Cho pH (U) 5.5 [pH] Normal 5-9 [facility] Comment on above: Performed By: #### U MICRO, ERUR #### [facility] [address] [place] [address] Dr. Darleen Coh Protein (U) [Mass/Vol] 100 mg/dL Abnormal NEGAT MALISSA/ TRACE [facility] Comment on above: Performed By: #### U MICRO, ERUR #### [facility] [address] [place] [address] Dr. Darleen Cho SPEC GRAVITY >=1.030 Abnormal 1.005-<=1.02 5 [facility] Comment on above: Performed By: #### U MICRO, ERUR #### [facility] [address] [place] [address] Dr. Darleen Cho UR MICRO IND INDICATED Normal [facility] Comment on above: Performed By: #### U MICRO, ERUR #### [facility] [address] [place] [address] Dr. Darleen Cho Urobilinogen Qn (U) 0.2 {Ophelia'U}/dL Normal 0.2 - 1. 0 [facility] Comment on above: Performed By: #### U MICRO, ERUR #### [facility] [address] [place] [address] Dr. Darleen Cho HIV 1/2 RAPID (EXPOSURE ONLY )on 08-25-2022 HIV AB Non-Reactive Normal NON-REACTIVE [facility] Comment on above: Performed By: #### R PDHIV #### [facility] [address] [place] [address] Dr. Darleen Cho HIV AG Non-Reactive Normal NON-REACTIVE [facility] Comment on above: Performed By: #### R PDHIV #### [facility] [address] [place] [address] Dr. Darleen Cho INTERNAL CONTROLS Within Normal Limits Normal Wi thin Normal Limits [facility] Comment on above: Performed By: #### R PDHIV #### [facility] [address] [place] [address] Dr. Darleen Cho RAPID HIV INFO SEE BELOW Normal [facility] Comment on above: Result Comment: This test is used for the initial screening of the exposure source. Confirmation of all reactive results will be obtained through reference lab testing. Performed By: #### R PDHIV #### [facility] [address] [place] [address] Dr. Darleen Cho PH VENOUS BLOODon 08-25-2022 PCO2 VENOUS 24.1 mmHg Critically low 40.0-52.0 [facility] Comment on above: Performed By: #### B MP #### [facility] [address] [place] [address] Dr. Darleen Cho pH VENOUS 7.288 Critically low 7.330-7.430 [facility] Comment on above: Performed By: #### B MP #### [facility] [address] [place] [address] Dr. Darleen Cho PCO2 VENOUS 18.1 mmHg Critically low 40.0-52.0 [facility] Comment on above: Performed By: #### P HVEN #### [facility] [address] [place] [address] Dr. Darleen Cho pH VENOUS 7.157 Critically low 7.330-7.430 [facility] Comment on above: Performed By: #### P HVEN #### [facility] [address] [place] [address] Dr. Darleen Cho PCO2 VENOUS 18.3 mmHg Critically low 40.0-52.0 [facility] Comment on above: Performed By: #### P HVEN #### [facility] [address] [place] [address] Dr. Darleen Cho pH VENOUS 6.933 Critically low 7.330-7.430 [facility] Comment on above: Performed By: #### P HVEN #### [facility] [address] [place] [address] Dr. Darleen Cho POINT OF CARE GLUCOSEon 08-01 Glucose [Mass/Vol] 201 mg/dL Critically high 74-106 [facility] Comment on above: Performed By: #### B MP #### [facility] [address] [place] [address] Dr. Darleen Cho Glucose [Mass/Vol] 373 mg/dL Critically high 74-106 [facility] Comment on above: Performed By: #### B MP #### [facility] [address] [place] [address] Dr. Darleen Cho Glucose [Mass/Vol] 433 mg/dL Critically high 74-106 [facility] Comment on above: Performed By: #### B MP #### [facility] [address] [place] [address] Dr. Darleen Cho PREG HCG QUALon 08-25-2022 , QUAL Negative Normal NEGATIVE [facility] Comment on above: Performed By: #### A CETON, PREG #### [facility] [address] [place] [address] Dr. Darleen Cho PROF CHEM 8 (BAS METB)on Anion gap [Moles/Vol] 19.7 mmol/L Normal [facility] Comment on above: Performed By: #### B MP #### [facility] [address] [place] [address] Dr. Darleen Cho Calcium [Mass/Vol] 7.2 mg/dL Critically low 8.5-10.[address] [facility] Comment on above: Performed By: #### B MP #### [facility] [address] [address] [address] Darleen Cho Chloride [Moles/Vol] 100 mmol/L Normal 98-107 [facility] Comment on above: Performed By: #### B MP #### [facility] [address] [place] [address] Dr. Darleen Cho CO2 [Moles/Vol] 13.5 mmol/L Critically low 21.0-32.0 [facility] Comment on above: Performed By: #### B MP #### [facility] [address] [place] [address] Dr. Darleen Cho Creatinine [Mass/Vol] 0.71 mg/dL Normal 0.55-1.02 [facility] Comment on above: Performed By: #### B MP #### [facility] [address] [place] [address] Dr. Darleen Cho EGFR-AF [place] >60 Normal >=60 [facility] Comment on above: Performed By: #### B MP #### [facility] [address] [place] [address] Dr. Darleen Cho EGFR-NON AF [place] >60 Normal >=60 [facility] Comment on above: Performed By: #### B MP #### [facility] [address] [place] [address] Dr. Darleen Cho Glucose [Mass/Vol] 333 mg/dL Critically high 74-106 [facility] Comment on above: Performed By: #### B MP #### [facility] [address] [place] [address] Dr. Darleen Cho Potassium [Moles/Vol] 3.2 mmol/L Critically low 3.5-5.1 [facility] Comment on above: Performed By: #### B MP #### [facility] [address] [place] [address] Dr. Darleen Cho Sodium [Moles/Vol] 130 mmol/L Critically low 136-145 [facility] Comment on above: Performed By: #### B MP #### [facility] [address] [place] [address] Dr. Darleen Cho Urea nitrogen [Mass/Vol] 8.0 mg/dL Normal 7.0-18.0 [facility] Comment on above: Performed By: #### B MP #### [facility] [address] [place] [address] Dr. Darleen Cho Urea nitrogen/Creatinine [Mass ratio] 11.3 mg/mg Normal [facility] Comment on above: Performed By: #### B MP #### [facility] [address] [address] [address] Darleen Cho Anion gap [Moles/Vol] 24.7 mmol/L Normal [facility] Comment on above: Performed By: #### B MP #### [facility] [address] [place] [address] Dr. Darleen Cho Calcium [Mass/Vol] 7.2 mg/dL Critically low 8.5-10.[address] [facility] Comment on above: Performed By: #### B MP #### [facility] [address] [place] [address] Dr. Darleen Cho Chloride [Moles/Vol] 102 mmol/L Normal 98-107 [facility] Comment on above: Performed By: #### B MP #### [facility] [address] [place] [address] Dr. Darleen Cho CO2 [Moles/Vol] 8.6 mmol/L Critically low 21.0-32.0 [facility] Comment on above: Performed By: #### B MP #### [facility] [address] [place] [address] Dr. Darleen Cho Creatinine [Mass/Vol] 0.63 mg/dL Normal 0.55-1.02 [facility] Comment on above: Performed By: #### B MP #### [facility] [address] [address] [address] Darleen Cho EGFR-AF [place] >60 Normal >=60 [facility] Comment on above: Performed By: #### B MP #### [facility] [address] [place] [address] Dr. Darleen Cho EGFR-NON AF [place] >60 Normal >=60 [facility] Comment on above: Performed By: #### B MP #### [facility] [address] [address] [address] Darleen Cho Glucose [Mass/Vol] 228 mg/dL Critically high 74-106 [facility] Comment on above: Performed By: #### B MP #### [facility] [address] [address] [address] Darleen Cho Potassium [Moles/Vol] 3.3 mmol/L Critically low 3.5-5.1 [facility] Comment on above: Performed By: #### B MP #### [facility] [address] [address] [address] Darleen Cho Sodium [Moles/Vol] 132 mmol/L Critically low 136-[address] [facility] Comment on above: Performed By: #### B MP #### [facility] [address] [address] [address] Darleen Cho Urea nitrogen [Mass/Vol] 11.0 mg/dL Normal 7.0-18.0 [facility] Comment on above: Performed By: #### B MP #### [facility] [address] [address] [address] Darleen Cho Urea nitrogen/Creatinine [Mass ratio] 17.5 mg/mg Normal [facility] Comment on above: Performed By: #### B MP #### [facility] [address] [address] [address] Darleen Cho Anion gap [Moles/Vol] 29.5 mmol/L Normal [facility] Comment on above: Performed By: #### B MP #### [facility] [address] [address] [address] Darleen Cho Calcium [Mass/Vol] 8.6 mg/dL Normal 8.5-10.1 [facility] Comment on above: Performed By: #### B MP #### [facility] [address] [address] [address] Darleen Cho Chloride [Moles/Vol] 94 mmol/L Critically low 98-107 [facility] Comment on above: Performed By: #### B MP #### [facility] [address] [address] [address] Darleen Cho CO2 [Moles/Vol] 5.9 mmol/L Critically low 21.0-32.0 [facility] Comment on above: Performed By: #### B MP #### [facility] [address] [address] [address] Darleen Cho Creatinine [Mass/Vol] 0.94 mg/dL Normal 0.55-1.02 [facility] Comment on above: Performed By: #### B MP #### [facility] [address] [address] [address] Darleen Cho EGFR-AF [place] >60 Normal >=60 [facility] Comment on above: Performed By: #### B MP #### [facility] [address] [place] [address] Dr. Darleen Cho EGFR-NON AF [place] >60 Normal >=60 [facility] Comment on above: Performed By: #### B MP #### [facility] [address] [address] [address] Darleen Cho Glucose [Mass/Vol] 403 mg/dL Critically high 74-106 [facility] Comment on above: Performed By: #### B MP #### [facility] [address] [address] [address] Darleen Cho Potassium [Moles/Vol] 4.4 mmol/L Normal 3.5-5.1 [facility] Comment on above: Performed By: #### B MP #### [facility] [address] [address] [address] Darleen Cho Sodium [Moles/Vol] 125 mmol/L Critically low 136-145 [facility] Comment on above: Performed By: #### B MP #### [facility] [address] [place] [address] Dr. Darleen Cho Urea nitrogen [Mass/Vol] 10.0 mg/dL Normal 7.0-18.0 [facility] Comment on above: Performed By: #### B MP #### [facility] [address] [place] [address] Dr. Darleen Cho Urea nitrogen/Creatinine [Mass ratio] 10.6 mg/mg Normal [facility] Comment on above: Performed By: #### B MP #### [facility] [address] [place] [address] Dr. Darleen Cho URINE MICROSCOPIC ONLYon BACTERIA TRACE Abnormal NONE SEEN [facility] Comment on above: Performed By: #### U MICRO, ERUR #### [facility] [address] [place] [address] Dr. Darleen Cho Bacteria identified Cx Nom (U) NOT INDICATED Normal [facility] Comment on above: Performed By: #### U MICRO, ERUR #### [facility] [address] [place] [address] Dr. Dalreen Cho CAST NONE SEEN Normal NONE SEEN [facility] Comment on above: Performed By: #### U MICRO, ERUR #### [facility] [address] [place] [address] Dr. Darleen Cho Crystals LM Nom (Urine sed) NONE SEEN Normal NONE SEEN [facility] Comment on above: Performed By: #### U MICRO, ERUR #### [facility] [address] [place] [address] Dr. Darleen Cho Epithelial cells LM Ql (Urine sed) FEW Abnormal NONE SEEN /RARE [facility] Comment on above: Performed By: #### U MICRO, ERUR #### [facility] [address] [place] [address] Dr. Darleen Cho MUCOUS NONE SEEN Normal NONE SEEN [facility] Comment on above: Performed By: #### U MICRO, ERUR #### [facility] [address] [place] [address] Dr. Darleen Cho RBC 2-5 Abnormal 0-2 [facility] Comment on above: Performed By: #### U MICRO, ERUR #### [facility] [address] [place] [address] Dr. Darleen Cho WBC 0-2 Abnormal NONE SEEN [facility] Comment on above: Performed By: #### U MICRO, ERUR #### [facility] [address] [place] [address] Dr. Darleen Cho XR CHEST 1 Von 08-25-2022 XR CHEST 1 V EXAM: XR CHEST 1 V INDICATION: SHORTNESS OF BREATH. COMPARISON: None. TECHNIQUE: Single frontal view of the chest FINDINGS: Normal cardiomediastinal contours. Clear lungs. No pleural effusion or pneumothorax. No acute osseous abnormality. IMPRESSION: No acute cardiopulmonary process. Electronically authenticated by: ROSA M MENDEZ Date: 2022-08-25 12:46 Normal [facility] Covid-19 PCR ([facility]VD[facility])on 02-28 SARS-CoV-2 (COVID-19) RNA CARMEN+probe Ql (Unsp spec) Not detected Normal NOT DETECTED [facility] Comment on above: Result Comment: This test is not yet approved or cleared by the [place] FDA. When there are no FDA-approved or cleared tests available, and other criteria are met, FDA can make tests available under an emergency access mechanism called an Emergency Use Authorization (EUA). The EUA for this test is supported by the [place] of Health and Human Service's (HHS's) declaration [...] consistent with SARS-CoV-2. Performed By: #### A VANDANA PREG #### [facility] [address] [address] [address] Darleen Cho Basic Metabolic Panelon Anion gap [Moles/Vol] 10 mmol/L 9 - 17 mmol/L [place] Bun/Cre Ratio NOT REPORTED [place] Calcium [Mass/Vol] 8.3 mg/dL Low 8.6 - 10. 4 mg/dL [place] Chloride [Moles/Vol] 106 mmol/L 98 - 10 7 mmol/L [place] CO2 [Moles/Vol] 16 mmol/L Low 20 - 31 mmol/L [place] Creatinine [Mass/Vol] 0.53 mg/dL 0.5 - 0.9 mg/dL [place] GFR >60 >60 mL/min [place] GFR Non- >60 >60 mL/min [place] GFR/1.73 sq M predicted among non-blacks MDRD (S/P/Bld) [Vol rate/Area] [place] Comment on above: Average GFR for 20-2 9 years old: 116 mL/min/1.73sq m Chronic Kidney Disease: <60 mL/min/1.73sq m Kidney failure: <15 mL/min/1.73sq m eGFR calculated using average adult body mass. Additional eGFR calculator available at: http://www.Validic/multiple_crcl_2012.htm GFR/1.73 sq M predicted among non-blacks MDRD (S/P/Bld) [Vol rate/Area] NOT REPORTED [place] Glucose [Mass/Vol] 208 mg/dL High 70 - 99 mg/dL [place] Interpretation and review of laboratory results Abnormal [place] Potassium [Moles/Vol] 3.5 mmol/L Low 3.7 - 5.3 mmol/L [place] Sodium [Moles/Vol] 132 mmol/L Low 135 - 144 mmol/L [place] Urea nitrogen [Mass/Vol] 9 mg/dL 6 - 20 mg/d L [place] Anion gap [Moles/Vol] 13 mmol/L 9 - 17 mmol/L [place] Bun/Cre Ratio NOT REPORTED [place] Calcium [Mass/Vol] 8.4 mg/dL Low 8.6 - 10. 4 mg/dL [place] Chloride [Moles/Vol] 107 mmol/L 98 - 10 7 mmol/L [place] CO2 [Moles/Vol] 16 mmol/L Low 20 - 31 mmol/L [place] Creatinine [Mass/Vol] 0.6 mg/dL 0.5 - 0.9 mg/dL [place] GFR >60 >60 mL/min [place] GFR Non- >60 >60 mL/min [place] GFR/1.73 sq M predicted among non-blacks MDRD (S/P/Bld) [Vol rate/Area] NOT REPORTED [place] GFR/1.73 sq M predicted among non-blacks MDRD (S/P/Bld) [Vol rate/Area] [place] Comment on above: Average GFR for 20-2 9 years old: 116 mL/min/1.73sq m Chronic Kidney Disease: <60 mL/min/1.73sq m Kidney failure: <15 mL/min/1.73sq m eGFR calculated using average adult body mass. Additional eGFR calculator available at: http://www.Validic/multiple_crcl_2012.htm Glucose [Mass/Vol] 189 mg/dL High 70 - 99 mg/dL [place] Interpretation and review of laboratory results Abnormal [place] Potassium [Moles/Vol] 3.6 mmol/L Low 3.7 - 5.3 mmol/L [place] Sodium [Moles/Vol] 136 mmol/L 135 - 144 mmol/L [place] Urea nitrogen [Mass/Vol] 7 mg/dL 6 - 20 mg/d L [place] Anion gap [Moles/Vol] 8 mmol/L Low 9 - 17 mmol/L [place] Bun/Cre Ratio NOT REPORTED [place] Calcium [Mass/Vol] 7.6 mg/dL Low 8.6 - 10. 4 mg/dL [place] Chloride [Moles/Vol] 110 mmol/L High 98 - 10 7 mmol/L [place] CO2 [Moles/Vol] 16 mmol/L Low 20 - 31 mmol/L [place] Creatinine [Mass/Vol] 0.41 mg/dL Low 0.5 - 0.9 mg/dL [place] GFR >60 >60 mL/min [place] GFR Non- >60 >60 mL/min [place] GFR/1.73 sq M predicted among non-blacks MDRD (S/P/Bld) [Vol rate/Area] [place] Comment on above: Average GFR for 20-2 9 years old: 116 mL/min/1.73sq m Chronic Kidney Disease: <60 mL/min/1.73sq m Kidney failure: <15 mL/min/1.73sq m eGFR calculated using average adult body mass. Additional eGFR calculator available at: http://www.Validic/multiple_crcl_2012.htm GFR/1.73 sq M predicted among non-blacks MDRD (S/P/Bld) [Vol rate/Area] NOT REPORTED [place] Glucose [Mass/Vol] 188 mg/dL High 70 - 99 mg/dL [place] Interpretation and review of laboratory results Abnormal [place] Potassium [Moles/Vol] 3.6 mmol/L Low 3.7 - 5.3 mmol/L [place] Sodium [Moles/Vol] 134 mmol/L Low 135 - 144 mmol/L [place] Urea nitrogen [Mass/Vol] 5 mg/dL Low 6 - 20 mg/d L [place] Anion gap [Moles/Vol] 9 mmol/L 9 - 17 mmol/L [place] Bun/Cre Ratio NOT REPORTED [place] Calcium [Mass/Vol] 7.6 mg/dL Low 8.6 - 10. 4 mg/dL [place] Chloride [Moles/Vol] 118 mmol/L High 98 - 10 7 mmol/L [place] CO2 [Moles/Vol] 17 mmol/L Low 20 - 31 mmol/L [place] Creatinine [Mass/Vol] 0.46 mg/dL Low 0.5 - 0.9 mg/dL [place] GFR >60 >60 mL/min [place] GFR Non- >60 >60 mL/min [place] GFR/1.73 sq M predicted among non-blacks MDRD (S/P/Bld) [Vol rate/Area] NOT REPORTED [place] GFR/1.73 sq M predicted among non-blacks MDRD (S/P/Bld) [Vol rate/Area] [place] Comment on above: Average GFR for 20-2 9 years old: 116 mL/min/1.73sq m Chronic Kidney Disease: <60 mL/min/1.73sq m Kidney failure: <15 mL/min/1.73sq m eGFR calculated using average adult body mass. Additional eGFR calculator available at: http://www.[employer]/multiple_crcl_2012.htm Glucose [Mass/Vol] 112 mg/dL High 70 - 99 mg/dL [place] Potassium [Moles/Vol] 3.1 mmol/L Low 3.7 - 5.3 mmol/L [place] Sodium [Moles/Vol] 144 mmol/L 135 - 144 mmol/L [place] Urea nitrogen [Mass/Vol] 5 mg/dL Low 6 - 20 mg/d L [place] Anion gap [Moles/Vol] 7 mmol/L Low 9 - 17 mmol/L [place] Bun/Cre Ratio NOT REPORTED [place] Calcium [Mass/Vol] 6.8 mg/dL Low 8.6 - 10. 4 mg/dL [place] Chloride [Moles/Vol] 114 mmol/L High 98 - 10 7 mmol/L [place] CO2 [Moles/Vol] 15 mmol/L Low 20 - 31 mmol/L [place] Creatinine [Mass/Vol] 0.47 mg/dL Low 0.5 - 0.9 mg/dL [place] GFR >60 >60 mL/min [place] GFR Non- >60 >60 mL/min [place] GFR/1.73 sq M predicted among non-blacks MDRD (S/P/Bld) [Vol rate/Area] [place] Comment on above: Average GFR for 20-2 9 years old: 116 mL/min/1.73sq m Chronic Kidney Disease: <60 mL/min/1.73sq m Kidney failure: <15 mL/min/1.73sq m eGFR calculated using average adult body mass. Additional eGFR calculator available at: http://www.[employer]/multiple_crcl_2012.htm GFR/1.73 sq M predicted among non-blacks MDRD (S/P/Bld) [Vol rate/Area] NOT REPORTED [place] Glucose [Mass/Vol] 230 mg/dL High 70 - 99 mg/dL [place] Potassium [Moles/Vol] 3.3 mmol/L Low 3.7 - 5.3 mmol/L [place] Sodium [Moles/Vol] 136 mmol/L 135 - 144 mmol/L [place] Urea nitrogen [Mass/Vol] 5 mg/dL Low 6 - 20 mg/d L [place] CBC WITH AUTO DIFFERENTIALon 08-01-2020 Basophils (Bld) [#/Vol] 10*3/uL [place] Basophils/100 WBC (Bld) 0 % 0 - 2 % [place] Differential Type NOT REPORTED [place] Eosinophils (Bld) [#/Vol] 0.05 10*3/uL [place] Eosinophils/100 WBC (Bld) 1 % 1 - 4 % [place] Erythrocyte distribution width (RBC) [Ratio] 14.6 % High 11.8 - 14.4 % [place] Hematocrit (Bld) [Volume fraction] 30.7 % Low 36.3 - 47.1 % [place] Hemoglobin (Bld) [Mass/Vol] 10.0 g/dL Low 11.9 - 15.1 g/dL [place] Immature granulocytes (Bld) [#/Vol] 10*3/uL [place] Immature granulocytes (Bld) [#/Vol] 0 % 0 [place] Interpretation and review of laboratory results Abnormal [place] Lymphocytes (Bld) [#/Vol] 1.79 10*3/uL [place] Lymphocytes/100 WBC (Bld) 28 % 24 - 43 % [place] MCH (RBC) [Entitic mass] 26.0 pg 25. 2 - 33.5 pg [place] MCHC (RBC) [Mass/Vol] 32.6 g/dL 28.4 - 34.8 g/dL [place] MCV (RBC) [Entitic vol] 79.9 fL Low 82.6 - 102.9 fL [place] Monocytes (Bld) [#/Vol] 0.27 10*3/uL [place] Monocytes/100 WBC (Bld) 4 % 3 - 12 % [place] Platelet mean volume (Bld) [Entitic vol] 10.0 fL 8.1 - 13.5 fL [place] Platelets (Bld) [#/Vol] NOT REPORTED [place] Platelets (Bld) [#/Vol] 130 10*3/uL [place] RBC (Bld) [#/Vol] 3.84 10*6/uL Low 3.95 - 5.1 1 m/uL [place] RBC morphology finding Nom (Bld) ANISOCYTOSIS PRESENT [place] Comment on above: MICROCYTOSIS PRESENT Segmented neutrophils/100 WBC (Bld) 67 % High 36 - 65 % [place] Segs Absolute 4.37 [place] WBC (Bld) [#/Vol] 0.0 10*3/uL 0.0 per 10 0 WBC [place] WBC (Bld) [#/Vol] 6.5 10*3/uL [place] WBC Morphology NOT REPORTED [place] EKG 12 Leadon 08-01-2020 Atrial Rate 109 BPM [place] P [place] 23 degrees [place] P-R Interval 148 ms [place] Q-T Interval 424 ms [place] QRS Duration 78 ms [place] QTc Calculation (Bazett) 570 ms [place] R [place] 93 degrees [place] T [place] 111 degrees [place] Ventricular Rate 109 BPM [place] Wong, Mhpn [place] [facility] [place] 11:21 AM EST Sinus tachycardia Rightward axis Septal infarct , age undetermined ST & T wave abnormality, consider lateral ischemia Prolonged QT Abnormal ECG No previous ECGs available [place] Sinus tachycardia Rightward axis Septal infarct , age undetermined ST & T wave abnormality, consider lateral ischemia Prolonged QT Abnormal ECG No previous ECGs available [place] HEMOGLOBIN A1Con 08-01-2020 Glucose [Mass/Vol] 499 mg/dL [place] Comment on above: The ADA and AACC rec ommend providing the estimated average glucose result to permit better patient understanding of their HBA1c result. HbA1c (Bld) [Mass fraction] 19.0 % High 4 - 6 % [place] Interpretation and review of laboratory results Abnormal [place] Magnesiumon 08-01-2020 Magnesium [Mass/Vol] 1.7 mg/dL 1.6 - 2 .6 mg/dL [place] Magnesium [Mass/Vol] 2.0 mg/dL 1.6 - 2 .6 mg/dL [place] Magnesium [Mass/Vol] 1.7 mg/dL 1.6 - 2 .6 mg/dL [place] Magnesium [Mass/Vol] 2.0 mg/dL 1.6 - 2 .6 mg/dL [place] Magnesium [Mass/Vol] 1.8 mg/dL 1.6 - 2 .6 mg/dL [place] Otheron 08-01-2020 Interpretation and review of laboratory results Abnormal [place] Interpretation and review of laboratory results Abnormal [place] POC Glucose Fingerstickon Glucose [Mass/Vol] 174 mg/dL High 65 - 105 mg/dL [place] Interpretation and review of laboratory results Abnormal [place] Glucose [Mass/Vol] 187 mg/dL High 65 - 105 mg/dL [place] Interpretation and review of laboratory results Abnormal [place] Glucose [Mass/Vol] 104 mg/dL 65 - 105 mg/dL [place] Glucose [Mass/Vol] 295 mg/dL High 65 - 105 mg/dL [place] Interpretation and review of laboratory results Abnormal [place] , URINEon 1 Beta HCG ( test) Ql (U) Negative NEGATIVE [place] Comment on above: Specimens with hCG [...] 2.7 mg/dL 2.6 - 4 .5 mg/dL [place] Phosphate [Mass/Vol] 2.7 mg/dL 2.6 - 4 .5 mg/dL [place] Phosphate [Mass/Vol] 2.9 mg/dL 2.6 - 4 .5 mg/dL [place] Phosphate [Mass/Vol] 2.2 mg/dL Low 2.6 - 4 .5 mg/dL [place] Phosphate [Mass/Vol] 1.6 mg/dL Low 2.6 - 4 .5 mg/dL [place] Anion Gap (Calc) POCon 07-31 Anion gap [Moles/Vol] 17 mmol/L High 7 - 16 mmol/L [place] Arterial Blood Gas, POCon Cami Test NOT REPORTED [place] aPTT Coag (Bld) [Time] NOT REPORTED [place] FIO2 30.0 [place] Mode PRVC [place] Negative Base Excess, Art 28 High [place] O2 Device/Flow/% Adult Ventilator [place] Oxygen saturation in Blood 88 % Low 94 - 98 % [place] POC HCO3 3.5 mmol/L Critically low 21 - 28 mmol/L [place] POC pCO2 18.0 Low [place] POC pCO2 Temp NOT REPORTED mm Hg [place] POC pH 6.893 Critically low [place] POC pH Temp NOT REPORTED [place] POC PO2 88.9 [place] POC pO2 Temp NOT REPORTED mm Hg [place] Positive Base Excess, Art NOT REPORTED [place] Sample Site Arterial Line [place] TCO2 (calc), Art <5 Low 22 - 29 mmol/L [place] Basic Metabolic Panelon Anion gap [Moles/Vol] 11 mmol/L 9 - 17 mmol/L [place] Bun/Cre Ratio NOT REPORTED [place] Calcium [Mass/Vol] 7.4 mg/dL Low 8.6 - 10. 4 mg/dL [place] Chloride [Moles/Vol] 113 mmol/L High 98 - 10 7 mmol/L [place] CO2 [Moles/Vol] 14 mmol/L Low 20 - 31 mmol/L [place] Creatinine [Mass/Vol] 0.49 mg/dL Low 0.5 - 0.9 mg/dL [place] GFR >60 >60 mL/min [place] GFR Non- >60 >60 mL/min [place] GFR/1.73 sq M predicted among non-blacks MDRD (S/P/Bld) [Vol rate/Area] NOT REPORTED [place] GFR/1.73 sq M predicted among non-blacks MDRD (S/P/Bld) [Vol rate/Area] [place] Comment on above: Average GFR for 20-2 9 years old: 116 mL/min/1.73sq m Chronic Kidney Disease: <60 mL/min/1.73sq m Kidney failure: <15 mL/min/1.73sq m eGFR calculated using average adult body mass. Additional eGFR calculator available at: http://www.[employer]/multiple_crcl_2012.htm Glucose [Mass/Vol] 262 mg/dL High 70 - 99 mg/dL [place] Potassium [Moles/Vol] 3.5 mmol/L Low 3.7 - 5.3 mmol/L [place] Sodium [Moles/Vol] 138 mmol/L 135 - 144 mmol/L [place] Urea nitrogen [Mass/Vol] 6 mg/dL 6 - 20 mg/d L [place] Anion gap [Moles/Vol] 9 mmol/L 9 - 17 mmol/L [place] Bun/Cre Ratio NOT REPORTED [place] Calcium [Mass/Vol] 7.8 mg/dL Low 8.6 - 10. 4 mg/dL [place] Chloride [Moles/Vol] 112 mmol/L High 98 - 10 7 mmol/L [place] CO2 [Moles/Vol] 15 mmol/L Low 20 - 31 mmol/L [place] Creatinine [Mass/Vol] 0.5 mg/dL 0.5 - 0.9 mg/dL [place] GFR >60 >60 mL/min [place] GFR Non- >60 >60 mL/min [place] GFR/1.73 sq M predicted among non-blacks MDRD (S/P/Bld) [Vol rate/Area] NOT REPORTED [place] GFR/1.73 sq M predicted among non-blacks MDRD (S/P/Bld) [Vol rate/Area] [place] Comment on above: Average GFR for 20-2 9 years old: 116 mL/min/1.73sq m Chronic Kidney Disease: <60 mL/min/1.73sq m Kidney failure: <15 mL/min/1.73sq m eGFR calculated using average adult body mass. Additional eGFR calculator available at: http://www.[employer]/multiple_crcl_2012.htm Glucose [Mass/Vol] 138 mg/dL High 70 - 99 mg/dL [place] Potassium [Moles/Vol] 3.5 mmol/L Low 3.7 - 5.3 mmol/L [place] Sodium [Moles/Vol] 136 mmol/L 135 - 144 mmol/L [place] Urea nitrogen [Mass/Vol] 6 mg/dL 6 - 20 mg/d L [place] Anion gap [Moles/Vol] 12 mmol/L 9 - 17 mmol/L [place] Bun/Cre Ratio NOT REPORTED [place] Calcium [Mass/Vol] 6.9 mg/dL Low 8.6 - 10. 4 mg/dL [place] Chloride [Moles/Vol] 113 mmol/L High 98 - 10 7 mmol/L [place] CO2 [Moles/Vol] 10 mmol/L Low 20 - 31 mmol/L [place] Creatinine [Mass/Vol] 0.57 mg/dL 0.5 - 0.9 mg/dL [place] GFR >60 >60 mL/min [place] GFR Non- >60 >60 mL/min [place] GFR/1.73 sq M predicted among non-blacks MDRD (S/P/Bld) [Vol rate/Area] NOT REPORTED [place] GFR/1.73 sq M predicted among non-blacks MDRD (S/P/Bld) [Vol rate/Area] [place] Comment on above: Average GFR for 20-2 9 years old: 116 mL/min/1.73sq m Chronic Kidney Disease: <60 mL/min/1.73sq m Kidney failure: <15 mL/min/1.73sq m eGFR calculated using average adult body mass. Additional eGFR calculator available at: http://www.[employer]/multiple_crcl_2011.htm Glucose [Mass/Vol] 418 mg/dL Critically high 70 - 9 9 mg/dL [place] Potassium [Moles/Vol] 3.9 mmol/L 3.7 - 5.3 mmol/L [place] Comment on above: SPECIMEN SLIGHTLY HE MOLYZED, RESULTS MAY BE ADVERSELY AFFECTED. Sodium [Moles/Vol] 135 mmol/L 135 - 144 mmol/L [place] Urea nitrogen [Mass/Vol] 7 mg/dL 6 - 20 mg/d L [place] Anion gap [Moles/Vol] 8 mmol/L Low 9 - 17 mmol/L [place] Bun/Cre Ratio NOT REPORTED [place] Calcium [Mass/Vol] 7.0 mg/dL Low 8.6 - 10. 4 mg/dL [place] Chloride [Moles/Vol] 115 mmol/L High 98 - 10 7 mmol/L [place] CO2 [Moles/Vol] 15 mmol/L Low 20 - 31 mmol/L [place] Creatinine [Mass/Vol] 0.53 mg/dL 0.5 - 0.9 mg/dL [place] GFR >60 >60 mL/min [place] GFR Non- >60 >60 mL/min [place] GFR/1.73 sq M predicted among non-blacks MDRD (S/P/Bld) [Vol rate/Area] [place] Comment on above: Average GFR for 20-2 9 years old: 116 mL/min/1.73sq m Chronic Kidney Disease: <60 mL/min/1.73sq m Kidney failure: <15 mL/min/1.73sq m eGFR calculated using average adult body mass. Additional eGFR calculator available at: http://www.[employer]/multiple_crcl_2012.htm GFR/1.73 sq M predicted among non-blacks MDRD (S/P/Bld) [Vol rate/Area] NOT REPORTED [place] Glucose [Mass/Vol] 150 mg/dL High 70 - 99 mg/dL [place] Potassium [Moles/Vol] 3.3 mmol/L Low 3.7 - 5.3 mmol/L [place] Sodium [Moles/Vol] 138 mmol/L 135 - 144 mmol/L [place] Urea nitrogen [Mass/Vol] 9 mg/dL 6 - 20 mg/d L [place] Anion gap [Moles/Vol] 7 mmol/L Low 9 - 17 mmol/L [place] Bun/Cre Ratio NOT REPORTED [place] Calcium [Mass/Vol] 6.8 mg/dL Low 8.6 - 10. 4 mg/dL [place] Chloride [Moles/Vol] 114 mmol/L High 98 - 10 7 mmol/L [place] CO2 [Moles/Vol] 16 mmol/L Low 20 - 31 mmol/L [place] Creatinine [Mass/Vol] 0.51 mg/dL 0.5 - 0.9 mg/dL [place] GFR >60 >60 mL/min [place] GFR Non- >60 >60 mL/min [place] GFR/1.73 sq M predicted among non-blacks MDRD (S/P/Bld) [Vol rate/Area] [place] Comment on above: Average GFR for 20-2 9 years old: 116 mL/min/1.73sq m Chronic Kidney Disease: <60 mL/min/1.73sq m Kidney failure: <15 mL/min/1.73sq m eGFR calculated using average adult body mass. Additional eGFR calculator available at: http://www.[employer]/multiple_crcl_2012.htm GFR/1.73 sq M predicted among non-blacks MDRD (S/P/Bld) [Vol rate/Area] NOT REPORTED [place] Glucose [Mass/Vol] 190 mg/dL High 70 - 99 mg/dL [place] Potassium [Moles/Vol] 3.7 mmol/L 3.7 - 5.3 mmol/L [place] Sodium [Moles/Vol] 137 mmol/L 135 - 144 mmol/L [place] Urea nitrogen [Mass/Vol] 11 mg/dL 6 - 20 mg/d L [place] Anion gap [Moles/Vol] 6 mmol/L Low 9 - 17 mmol/L [place] Bun/Cre Ratio NOT REPORTED [place] Calcium [Mass/Vol] 6.9 mg/dL Low 8.6 - 10. 4 mg/dL [place] Chloride [Moles/Vol] 115 mmol/L High 98 - 10 7 mmol/L [place] CO2 [Moles/Vol] 17 mmol/L Low 20 - 31 mmol/L [place] Creatinine [Mass/Vol] 0.56 mg/dL 0.5 - 0.9 mg/dL [place] GFR >60 >60 mL/min [place] GFR Non- >60 >60 mL/min [place] GFR/1.73 sq M predicted among non-blacks MDRD (S/P/Bld) [Vol rate/Area] NOT REPORTED [place] GFR/1.73 sq M predicted among non-blacks MDRD (S/P/Bld) [Vol rate/Area] [place] Comment on above: Average GFR for 20-2 9 years old: 116 mL/min/1.73sq m Chronic Kidney Disease: <60 mL/min/1.73sq m Kidney failure: <15 mL/min/1.73sq m eGFR calculated using average adult body mass. Additional eGFR calculator available at: http://www.[employer]/multiple_crcl_2011.htm Glucose [Mass/Vol] 180 mg/dL High 70 - 99 mg/dL [place] Potassium [Moles/Vol] 3.9 mmol/L 3.7 - 5.3 mmol/L [place] Sodium [Moles/Vol] 138 mmol/L 135 - 144 mmol/L [place] Urea nitrogen [Mass/Vol] 11 mg/dL 6 - 20 mg/d L [place] CALCIUM, IONIC (POC)on 07-31 POC Ionized Calcium 1.07 mmol/L Low 1.15 - 1 .33 mmol/L [place] CHLORIDE (POC)on 07-31-2020 Chloride [Moles/Vol] 116 mmol/L High 98 - 10 7 mmol/L [place] Creatinine W/GFR Point of Ca reon 07-31-2020 Creatinine [Mass/Vol] 0.78 mg/dL 0.51 - 1.19 mg/dL [place] GFR Non- >60 >60 mL/min [place] GFR/1.73 sq M predicted among non-blacks MDRD (S/P/Bld) [Vol rate/Area] mL/min/{1.73_m2} >60 mL/min [place] GFR/1.73 sq M predicted among non-blacks MDRD (S/P/Bld) [Vol rate/Area] [place] Comment on above: Average GFR for 20-2 9 years old: 116 mL/min/1.73sq m Chronic Kidney Disease: <60 mL/min/1.73sq m Kidney failure: <15 mL/min/1.73sq m eGFR calculated using average adult body mass. Additional eGFR calculator available at: http://www.[employer]/multiple_crcl_2012.htm Hemoglobin and hematocrit, b loodon 07-31-2020 Hematocrit (Bld) [Volume fraction] 44 % 36 - 46 % [place] Hemoglobin (Bld) [Mass/Vol] 14.9 g/dL 12 - 16 g/dL [place] Lactic Acid, POCon POC Lactic Acid 0.60 mmol/L 0.56 - 1.39 mmol/L [place] Magnesiumon 07-31-2020 Magnesium [Mass/Vol] 1.9 mg/dL 1.6 - 2 .6 mg/dL [place] Magnesium [Mass/Vol] 2.2 mg/dL 1.6 - 2 .6 mg/dL [place] Magnesium [Mass/Vol] 1.4 mg/dL Low 1.6 - 2 .6 mg/dL [place] Magnesium [Mass/Vol] 1.7 mg/dL 1.6 - 2 .6 mg/dL [place] Magnesium [Mass/Vol] 1.7 mg/dL 1.6 - 2 .6 mg/dL [place] Magnesium [Mass/Vol] 1.8 mg/dL 1.6 - 2 .6 mg/dL [place] Otheron 07-31-2020 Interpretation and review of laboratory results Abnormal [place] Interpretation and review of laboratory results Abnormal [place] Interpretation and review of laboratory results Abnormal [place] Interpretation and review of laboratory results Abnormal [place] Interpretation and review of laboratory results Abnormal [place] Interpretation and review of laboratory results Abnormal [place] Interpretation and review of laboratory results Abnormal [place] POC Glucose Fingerstickon Glucose [Mass/Vol] 201 mg/dL High 65 - 105 mg/dL [place] Interpretation and review of laboratory results Abnormal [place] Glucose [Mass/Vol] 162 mg/dL High 65 - 105 mg/dL [place] Interpretation and review of laboratory results Abnormal [place] Glucose [Mass/Vol] 124 mg/dL High 65 - 105 mg/dL [place] Interpretation and review of laboratory results Abnormal [place] Glucose [Mass/Vol] 117 mg/dL High 65 - 105 mg/dL [place] Interpretation and review of laboratory results Abnormal [place] Glucose [Mass/Vol] 137 mg/dL High 65 - 105 mg/dL [place] Interpretation and review of laboratory results Abnormal [place] Glucose [Mass/Vol] 173 mg/dL High 65 - 105 mg/dL [place] Interpretation and review of laboratory results Abnormal [place] Glucose [Mass/Vol] 266 mg/dL High 65 - 105 mg/dL [place] Interpretation and review of laboratory results Abnormal [place] Glucose [Mass/Vol] 320 mg/dL High 65 - 105 mg/dL [place] Interpretation and review of laboratory results Abnormal [place] Glucose [Mass/Vol] 400 mg/dL High 65 - 105 mg/dL [place] Interpretation and review of laboratory results Abnormal [place] Glucose [Mass/Vol] 157 mg/dL High 65 - 105 mg/dL [place] Interpretation and review of laboratory results Abnormal [place] Glucose [Mass/Vol] 130 mg/dL High 65 - 105 mg/dL [place] Interpretation and review of laboratory results Abnormal [place] Glucose [Mass/Vol] 139 mg/dL High 65 - 105 mg/dL [place] Interpretation and review of laboratory results Abnormal [place] Glucose [Mass/Vol] 156 mg/dL High 65 - 105 mg/dL [place] Interpretation and review of laboratory results Abnormal [place] Glucose [Mass/Vol] 193 mg/dL High 65 - 105 mg/dL [place] Interpretation and review of laboratory results Abnormal [place] Glucose [Mass/Vol] 207 mg/dL High 65 - 105 mg/dL [place] Interpretation and review of laboratory results Abnormal [place] Glucose [Mass/Vol] 211 mg/dL High 65 - 105 mg/dL [place] Interpretation and review of laboratory results Abnormal [place] Glucose [Mass/Vol] 167 mg/dL High 65 - 105 mg/dL [place] Interpretation and review of laboratory results Abnormal [place] Glucose [Mass/Vol] 145 mg/dL High 65 - 105 mg/dL [place] Interpretation and review of laboratory results Abnormal [place] Glucose [Mass/Vol] 156 mg/dL High 65 - 105 mg/dL [place] Interpretation and review of laboratory results Abnormal [place] Glucose [Mass/Vol] 171 mg/dL High 65 - 105 mg/dL [place] Interpretation and review of laboratory results Abnormal [place] Glucose [Mass/Vol] 165 mg/dL High 65 - 105 mg/dL [place] Interpretation and review of laboratory results Abnormal [place] Glucose [Mass/Vol] 144 mg/dL High 65 - 105 mg/dL [place] Interpretation and review of laboratory results Abnormal [place] POCT Glucoseon 07-31-2020 Glucose [Mass/Vol] 372 mg/dL High 74 - 100 mg/dL [place] POTASSIUM (POC)on 07-31-2020 Potassium [Moles/Vol] 3.9 mmol/L 3.5 - 4.5 mmol/L [place] Phosphoruson 07-31-2020 Phosphate [Mass/Vol] 1.9 mg/dL Low 2.6 - 4 .5 mg/dL [place] Phosphate [Mass/Vol] 1.7 mg/dL Low 2.6 - 4 .5 mg/dL [place] Phosphate [Mass/Vol] 1.8 mg/dL Low 2.6 - 4 .5 mg/dL [place] Phosphate [Mass/Vol] 1.5 mg/dL Low 2.6 - 4 .5 mg/dL [place] Phosphate [Mass/Vol] 1.7 mg/dL Low 2.6 - 4 .5 mg/dL [place] Phosphate [Mass/Vol] 1.5 mg/dL Low 2.6 - 4 .5 mg/dL [place] SODIUM (POC)on 07-31-2020 Sodium [Moles/Vol] 136 mmol/L Low 138 - 146 mmol/L [place] Acetaminophen Levelon 2020 Acetaminophen [Mass/Vol] <5 Low 10 - 30 ug/mL [place] Interpretation and review of laboratory results Abnormal [place] Arterial Blood Gas, POCon Cami Test NOT REPORTED [place] aPTT Coag (Bld) [Time] NOT REPORTED [place] FIO2 35.0 [place] Interpretation and review of laboratory results Abnormal [place] Mode NOT REPORTED [place] Negative Base Excess, Art 10 High [place] O2 Device/Flow/% BIPAP [place] Oxygen saturation in Blood 98 % 94 - 98 % [place] POC HCO3 12.9 mmol/L Low 21 - 28 mmol/L [place] POC pCO2 20.8 Low [place] POC pCO2 Temp NOT REPORTED mm Hg [place] POC pH 7.402 [place] POC pH Temp NOT REPORTED [place] POC PO2 98.2 [place] POC pO2 Temp NOT REPORTED mm Hg [place] Positive Base Excess, Art NOT REPORTED [place] Sample Site Arterial Line [place] TCO2 (calc), Art 14 mmol/L Low 22 - 29 mmol/L [place] Cami Test NOT REPORTED [place] aPTT Coag (Bld) [Time] 37.1 s Me [place] FIO2 40.0 [place] Mode Bi-Level Ventilation [place] Negative Base Excess, Art 16 High [place] O2 Device/Flow/% BIPAP [place] Oxygen saturation in Blood 96 % 94 - 98 % [place] POC HCO3 7.0 mmol/L Critically low 21 - 28 mmol/L [place] POC pCO2 14.0 Low [place] POC pCO2 Temp NOT REPORTED mm Hg [place] POC pH 7.310 Low [place] POC pH Temp NOT REPORTED [place] POC PO2 86.1 [place] POC pO2 Temp NOT REPORTED mm Hg [place] Positive Base Excess, Art NOT REPORTED [place] Sample Site Arterial Line [place] TCO2 (calc), Art 7 mmol/L Low 22 - 29 mmol/L [place] Cami Test NOT REPORTED [place] aPTT Coag (Bld) [Time] 36.3 s [place] FIO2 50.0 [place] Mode Bi-Level Ventilation [place] Negative Base Excess, Art 22 High [place] O2 Device/Flow/% BIPAP [place] Oxygen saturation in Blood 96 % 94 - 98 % [place] POC HCO3 5.2 mmol/L Critically low 21 - 28 mmol/L [place] POC pCO2 16.0 Low [place] POC pCO2 Temp NOT REPORTED mm Hg [place] POC pH 7.123 Critically low [place] POC pH Temp NOT REPORTED [place] POC PO2 109.8 High [place] POC pO2 Temp NOT REPORTED mm Hg [place] Positive Base Excess, Art NOT REPORTED [place] Sample Site Arterial Line [place] TCO2 (calc), Art 6 mmol/L Low 22 - 29 mmol/L [place] Cami Test NOT REPORTED [place] aPTT Coag (Bld) [Time] 36.1 s [place] FIO2 30.0 [place] Mode NOT REPORTED [place] Negative Base Excess, Art 24 High [place] O2 Device/Flow/% Adult Ventilator [place] Oxygen saturation in Blood 89 % Low 94 - 98 % [place] POC HCO3 4.3 mmol/L Critically low 21 - 28 mmol/L [place] POC pCO2 14.4 Low [place] POC pCO2 Temp NOT REPORTED mm Hg [place] POC pH 7.082 Critically low [place] pH Temp NOT [place]PORTED [place] PO2 75.9 Low [place] pO2 Temp NOT REPORTED mm Hg [place] Positive Base Excess, Art NOT REPORTED [place] Sample Site Arterial Line [place] TCO2 (calc), Art <5 Low 22 - 29 mmol/L [place] Basic Metabolic Panelon 07-02 Anion gap [Moles/Vol] 5 mmol/L Low 9 - 17 mmol/L [place] Bun/Cre Ratio NOT REPORTED [place] Calcium [Mass/Vol] 6.9 mg/dL Low 8.6 - 10. 4 mg/dL [place] Chloride [Moles/Vol] 113 mmol/L High 98 - 10 7 mmol/L [place] CO2 [Moles/Vol] 17 mmol/L Low 20 - 31 mmol/L [place] Creatinine [Mass/Vol] 0.51 mg/dL 0.5 - 0.9 mg/dL [place] GFR >60 >60 mL/min [place] GFR Non- >60 >60 mL/min [place] GFR/1.73 sq M predicted among non-blacks MDRD (S/P/Bld) [Vol rate/Area] NOT REPORTED [place] GFR/1.73 sq M predicted among non-blacks MDRD (S/P/Bld) [Vol rate/Area] [place] [place] Comment on above: Average GFR for 20-2 9 years old: 116 mL/min/1.73sq m Chronic Kidney Disease: <60 mL/min/1.73sq m Kidney failure: <15 mL/min/1.73sq m eGFR calculated using average adult body mass. Additional eGFR calculator available at: http://www.[employer]/multiple_crcl_2012.htm Glucose [Mass/Vol] 175 mg/dL High 70 - 99 mg/dL [place] Potassium [Moles/Vol] 3.4 mmol/L Low 3.7 - 5.3 mmol/L [place] Sodium [Moles/Vol] 135 mmol/L 135 - 144 mmol/L [place] Urea nitrogen [Mass/Vol] 14 mg/dL 6 - 20 mg/d L [place] Anion gap [Moles/Vol] 6 mmol/L Low 9 - 17 mmol/L [place] Bun/Cre Ratio NOT REPORTED [place] Calcium [Mass/Vol] 7.1 mg/dL Low 8.6 - 10. 4 mg/dL [place] Chloride [Moles/Vol] 115 mmol/L High 98 - 10 7 mmol/L [place] CO2 [Moles/Vol] 18 mmol/L Low 20 - 31 mmol/L [place] Creatinine [Mass/Vol] 0.59 mg/dL 0.5 - 0.9 mg/dL [place] GFR >60 >60 mL/min [place] GFR Non- >60 >60 mL/min [place] GFR/1.73 sq M predicted among non-blacks MDRD (S/P/Bld) [Vol rate/Area] NOT REPORTED [place] GFR/1.73 sq M predicted among non-blacks MDRD (S/P/Bld) [Vol rate/Area] [place] Comment on above: Average GFR for 20-2 9 years old: 116 mL/min/1.73sq m Chronic Kidney Disease: <60 mL/min/1.73sq m Kidney failure: <15 mL/min/1.73sq m eGFR calculated using average adult body mass. Additional eGFR calculator available at: http://www.[employer]/multiple_crcl_2012.htm Glucose [Mass/Vol] 113 mg/dL High 70 - 99 mg/dL [place] Potassium [Moles/Vol] 3.2 mmol/L Low 3.7 - 5.3 mmol/L [place] Sodium [Moles/Vol] 139 mmol/L 135 - 144 mmol/L [place] Urea nitrogen [Mass/Vol] 17 mg/dL 6 - 20 mg/d L [place] Anion gap [Moles/Vol] 9 mmol/L 9 - 17 mmol/L [place] Bun/Cre Ratio NOT REPORTED [place] Calcium [Mass/Vol] 7.0 mg/dL Low 8.6 - 10. 4 mg/dL [place] Chloride [Moles/Vol] 114 mmol/L High 98 - 10 7 mmol/L [place] CO2 [Moles/Vol] 17 mmol/L Low 20 - 31 mmol/L [place] Creatinine [Mass/Vol] 0.78 mg/dL 0.5 - 0.9 mg/dL [place] GFR >60 >60 mL/min [place] GFR Non- >60 >60 mL/min [place] GFR/1.73 sq M predicted among non-blacks MDRD (S/P/Bld) [Vol rate/Area] [place] Comment on above: Average GFR for 20-2 9 years old: 116 mL/min/1.73sq m Chronic Kidney Disease: <60 mL/min/1.73sq m Kidney failure: <15 mL/min/1.73sq m eGFR calculated using average adult body mass. Additional eGFR calculator available at: http://www.Valid[employer]/multiple_crcl_2012.htm GFR/1.73 sq M predicted among non-blacks MDRD (S/P/Bld) [Vol rate/Area] NOT REPORTED [place] Glucose [Mass/Vol] 132 mg/dL High 70 - 99 mg/dL [place] Potassium [Moles/Vol] 3.1 mmol/L Low 3.7 - 5.3 mmol/L [place] Sodium [Moles/Vol] 140 mmol/L 135 - 144 mmol/L [place] Urea nitrogen [Mass/Vol] 20 mg/dL 6 - 20 mg/d L [place] Anion gap [Moles/Vol] 9 mmol/L 9 - 17 mmol/L [place] Bun/Cre Ratio NOT REPORTED [place] Calcium [Mass/Vol] 7.1 mg/dL Low 8.6 - 10. 4 mg/dL [place] Chloride [Moles/Vol] 113 mmol/L High 98 - 10 7 mmol/L [place] CO2 [Moles/Vol] 17 mmol/L Low 20 - 31 mmol/L [place] Creatinine [Mass/Vol] 0.81 mg/dL 0.5 - 0.9 mg/dL [place] GFR >60 >60 mL/min [place] GFR Non- >60 >60 mL/min [place] GFR/1.73 sq M predicted among non-blacks MDRD (S/P/Bld) [Vol rate/Area] [place] Comment on above: Average GFR for 20-2 9 years old: 116 mL/min/1.73sq m Chronic Kidney Disease: <60 mL/min/1.73sq m Kidney failure: <15 mL/min/1.73sq m eGFR calculated using average adult body mass. Additional eGFR calculator available at: http://www.[employer]/multiple_crcl_2012.htm GFR/1.73 sq M predicted among non-blacks MDRD (S/P/Bld) [Vol rate/Area] NOT REPORTED [place] Glucose [Mass/Vol] 238 mg/dL High 70 - 99 mg/dL [place] Potassium [Moles/Vol] 2.4 mmol/L Critically low 3.7 - 5.3 mmol/L [place] Sodium [Moles/Vol] 139 mmol/L 135 - 144 mmol/L [place] Urea nitrogen [Mass/Vol] 23 mg/dL High 6 - 20 mg/d L [place] Anion gap [Moles/Vol] 23 mmol/L High 9 - 17 mmol/L [place] Bun/Cre Ratio NOT REPORTED [place] Calcium [Mass/Vol] 7.2 mg/dL Low 8.6 - 10. 4 mg/dL [place] Chloride [Moles/Vol] 111 mmol/L High 98 - 10 7 mmol/L [place] CO2 [Moles/Vol] 8 mmol/L Critically low 20 - 31 mmol/L [place] Creatinine [Mass/Vol] 1.08 mg/dL High 0.5 - 0.9 mg/dL [place] GFR >60 >60 mL/min [place] GFR Non- >60 >60 mL/min [place] GFR/1.73 sq M predicted among non-blacks MDRD (S/P/Bld) [Vol rate/Area] [place] Comment on above: Average GFR for 20-2 9 years old: 116 mL/min/1.73sq m Chronic Kidney Disease: <60 mL/min/1.73sq m Kidney failure: <15 mL/min/1.73sq m eGFR calculated using average adult body mass. Additional eGFR calculator available at: http://www.[employer]/multiple_crcl_2012.htm GFR/1.73 sq M predicted among non-blacks MDRD (S/P/Bld) [Vol rate/Area] NOT REPORTED [place] Glucose [Mass/Vol] 322 mg/dL High 70 - 99 mg/dL [place] Potassium [Moles/Vol] 3.8 mmol/L 3.7 - 5.3 mmol/L [place] Sodium [Moles/Vol] 142 mmol/L 135 - 144 mmol/L [place] Urea nitrogen [Mass/Vol] 28 mg/dL High 6 - 20 mg/d L [place] Anion gap [Moles/Vol] Unable to calculat e anion gap due to CO2 less than 6. 9 - 17 mmol/L [place] Bun/Cre Ratio NOT REPORTED [place] Calcium [Mass/Vol] 6.9 mg/dL Low 8.6 - 10. 4 mg/dL [place] Chloride [Moles/Vol] 109 mmol/L High 98 - 10 7 mmol/L [place] CO2 [Moles/Vol] mmol/L Critically low 20 - 31 mmol/L [place] Creatinine [Mass/Vol] 0.89 mg/dL 0.5 - 0.9 mg/dL [place] GFR >60 >60 mL/min [place] GFR Non- >60 >60 mL/min [place] GFR/1.73 sq M predicted among non-blacks MDRD (S/P/Bld) [Vol rate/Area] NOT REPORTED [place] GFR/1.73 sq M predicted among non-blacks MDRD (S/P/Bld) [Vol rate/Area] [place] Comment on above: Average GFR for 20-2 9 years old: 116 mL/min/1.73sq m Chronic Kidney Disease: <60 mL/min/1.73sq m Kidney failure: <15 mL/min/1.73sq m eGFR calculated using average adult body mass. Additional eGFR calculator available at: http://www.[employer]/multiple_crcl_2012.htm Glucose [Mass/Vol] 275 mg/dL High 70 - 99 mg/dL [place] Interpretation and review of laboratory results Abnormal [place] Potassium [Moles/Vol] 3.4 mmol/L Low 3.7 - 5.3 mmol/L [place] Sodium [Moles/Vol] 139 mmol/L 135 - 144 mmol/L [place] Urea nitrogen [Mass/Vol] 29 mg/dL High 6 - 20 mg/d L [place] CBC WITH AUTO DIFFERENTIALon 07-30-2020 Basophils (Bld) [#/Vol] 0.00 10*3/uL [place] Basophils/100 WBC (Bld) 0 % 0 - 2 % [place] Differential Type NOT REPORTED [place] Eosinophils (Bld) [#/Vol] 0.00 10*3/uL [place] Eosinophils/100 WBC (Bld) 0 % Low 1 - 4 % [place] Erythrocyte distribution width (RBC) [Ratio] 13.2 % 11.8 - 14.4 % [place] Hematocrit (Bld) [Volume fraction] 38.1 % 36.3 - 47.1 % [place] Hemoglobin (Bld) [Mass/Vol] 12.9 g/dL 11.9 - 15.1 g/dL [place] Immature granulocytes (Bld) [#/Vol] 2 % High 0 [place] Immature granulocytes (Bld) [#/Vol] 0.28 10*3/uL [place] Interpretation and review of laboratory results Abnormal [place] Lymphocytes (Bld) [#/Vol] 0.70 10*3/uL Low [place] Lymphocytes/100 WBC (Bld) 5 % Low 24 - 43 % [place] MCH (RBC) [Entitic mass] 26.2 pg 25. 2 - 33.5 pg [place] MCHC (RBC) [Mass/Vol] 33.9 g/dL 28.4 - 34.8 g/dL [place] MCV (RBC) [Entitic vol] 77.3 fL Low 82.6 - 102.9 fL [place] Monocytes (Bld) [#/Vol] 0.56 10*3/uL [place] Monocytes/100 WBC (Bld) 4 % 3 - 12 % [place] Morphology Calvin (Bld) [Interp] MICROCYTOSIS PRESENT [place] Morphology Calvin (Bld) [Interp] ANISOCYTOSIS PRESENT [place] Platelet mean volume (Bld) [Entitic vol] 9.8 fL 8.1 - 13.5 fL [place] Platelets (Bld) [#/Vol] 228 10*3/uL [place] Platelets (Bld) [#/Vol] NOT REPORTED [place] RBC (Bld) [#/Vol] 4.93 10*6/uL 3.95 - 5.1 1 m/uL [place] RBC morphology finding Nom (Bld) NOT REPORTED [place] Segmented neutrophils/100 WBC (Bld) 89 % High 36 - 65 % [place] Segs Absolute 12.36 High [place] WBC (Bld) [#/Vol] 0.0 10*3/uL 0.0 per 10 0 WBC [place] WBC (Bld) [#/Vol] 13.9 10*3/uL [place] WBC Morphology NOT REPORTED [place] Ethanolon 07-30-2020 Ethanol [Mass/Vol] mg/dL <10 mg/dL [place] Ethanol percent <0.010 <0.010 % [place] Hepatic Function Panelon Albumin [Mass/Vol] 3 g/dL Low 3.5 - 5.2 g/dL [place] Albumin/Globulin [Mass ratio] 1.3 {ratio} [place] ALP [Catalytic activity/Vol] 103 U/L 35 - 104 U/L [place] ALT [Catalytic activity/Vol] 16 U/L 5 - 33 U/L [place] AST [Catalytic activity/Vol] 39 U/L High <32 [place] Bilirubin Ql (U) <0.10 Low 0.3 - 1.2 mg/dL [place] Bilirubin, Indirect CANNOT BE CALCULATED 0 - 1 mg/dL [place] Bilirubin.direct [Mass/Vol] mg/dL <0.31 mg/dL [place] Globulin (S) [Mass/Vol] NOT REPORTED 1.5 - 3.8 g/dL [place] Interpretation and review of laboratory results Abnormal [place] Protein [Mass/Vol] 5.3 g/dL Low 6.4 - 8.3 g/dL [place] Lactic Acid, POCon POC Lactic Acid 0.87 mmol/L 0.56 - 1.39 mmol/L [place] POC Lactic Acid 0.80 mmol/L 0.56 - 1.39 mmol/L [place] POC Lactic Acid 0.79 mmol/L 0.56 - 1.39 mmol/L [place] Lipaseon 07-30-2020 Lipase [Catalytic activity/Vol] 24 U/L 13 - 60 U/L [place] MRSA by PCRon 07-30-2020 Direct Exam POSITIVE: MRSA DNA detected by nucleic acid amplification. Results should be used as an adjunct to nosocomial control efforts to identify patients needing enhanced precautions. The test is not intended to identify patients with staphylococcal infections. Results should not be used to guide or monitor treatment for MRSA infections. Abnormal [place] Interpretation and review of laboratory results Abnormal [place] Special Requests NOT REPORTED [place] Specimen Description .NASAL SWAB [place] Magnesiumon 07-30-2020 Magnesium [Mass/Vol] 1.6 mg/dL 1.6 - 2 .6 mg/dL [place] Magnesium [Mass/Vol] 1.8 mg/dL 1.6 - 2 .6 mg/dL [place] Magnesium [Mass/Vol] 2.0 mg/dL 1.6 - 2 .6 mg/dL [place] Magnesium [Mass/Vol] 2.0 mg/dL 1.6 - 2 .6 mg/dL [place] Magnesium [Mass/Vol] 1.6 mg/dL 1.6 - 2 .6 mg/dL [place] Magnesium [Mass/Vol] 1.6 mg/dL 1.6 - 2 .6 mg/dL [place] Microscopic Urinalysison Amorphous, UA 1+ Abnormal None [place] Bacteria, UA NOT REPORTED None [place] Casts UA HYALINE [place] Casts UA 0 TO 2 [place] Crystals, UA NOT REPORTED None /HPF [place] Epithelial Cells UA 5 TO 10 [place] Interpretation and review of laboratory results Abnormal [place] Mucus, UA NOT REPORTED None [place] Other Observations UA NOT REPORTED NOT REQ. M [place] RBC (U) [#/Vol] 0 TO 2 [place] Renal Epithelial, UA NOT REPORTED 0 /HPF Me [place], [place] Trichomonas, UA NOT REPORTED None [place] WBC, UA 2 TO 5 [place] Yeast, UA NOT REPORTED None [place] - [place] Otheron 07-30-2020 Interpretation and review of laboratory results Abnormal [place] Interpretation and review of laboratory results Abnormal [place] Interpretation and review of laboratory results Abnormal [place] Interpretation and review of laboratory results Abnormal [place] Interpretation and review of laboratory results Abnormal [place] Interpretation and review of laboratory results Abnormal [place] Interpretation and review of laboratory results Abnormal [place] Interpretation and review of laboratory results Abnormal [place] POC Glucose Fingerstickon Glucose [Mass/Vol] 148 mg/dL High 65 - 105 mg/dL [place] Interpretation and review of laboratory results Abnormal [place] Glucose [Mass/Vol] 170 mg/dL High 65 - 105 mg/dL [place] Interpretation and review of laboratory results Abnormal [place] Glucose [Mass/Vol] 156 mg/dL High 65 - 105 mg/dL [place] Interpretation and review of laboratory results Abnormal [place] Glucose [Mass/Vol] 140 mg/dL High 65 - 105 mg/dL [place] Interpretation and review of laboratory results Abnormal [place] Glucose [Mass/Vol] 109 mg/dL High 65 - 105 mg/dL [place] Interpretation and review of laboratory results Abnormal [place] Glucose [Mass/Vol] 112 mg/dL High 65 - 105 mg/dL [place] Interpretation and review of laboratory results Abnormal [place] Glucose [Mass/Vol] 111 mg/dL High 65 - 105 mg/dL [place] Interpretation and review of laboratory results Abnormal [place] Glucose [Mass/Vol] 130 mg/dL High 65 - 105 mg/dL [place] Interpretation and review of laboratory results Abnormal [place] Glucose [Mass/Vol] 143 mg/dL High 65 - 105 mg/dL [place] Interpretation and review of laboratory results Abnormal [place] Glucose [Mass/Vol] 126 mg/dL High 65 - 105 mg/dL [place] Interpretation and review of laboratory results Abnormal [place] Glucose [Mass/Vol] 126 mg/dL High 65 - 105 mg/dL [place] Interpretation and review of laboratory results Abnormal [place] Glucose [Mass/Vol] 174 mg/dL High 65 - 105 mg/dL [place] Interpretation and review of laboratory results Abnormal [place] Glucose [Mass/Vol] 214 mg/dL High 65 - 105 mg/dL [place] Interpretation and review of laboratory results Abnormal [place] Glucose [Mass/Vol] 214 mg/dL High 65 - 105 mg/dL [place] Interpretation and review of laboratory results Abnormal [place] Glucose [Mass/Vol] 252 mg/dL High 65 - 105 mg/dL [place] Interpretation and review of laboratory results Abnormal [place] Glucose [Mass/Vol] 281 mg/dL High 65 - 105 mg/dL [place] Interpretation and review of laboratory results Abnormal [place] Glucose [Mass/Vol] 291 mg/dL High 65 - 105 mg/dL [place] Interpretation and review of laboratory results Abnormal [place] Glucose [Mass/Vol] 283 mg/dL High 65 - 105 mg/dL [place] Interpretation and review of laboratory results Abnormal [place] Glucose [Mass/Vol] 275 mg/dL High 65 - 105 mg/dL [place] Interpretation and review of laboratory results Abnormal [place] Glucose [Mass/Vol] 264 mg/dL High 65 - 105 mg/dL [place] Interpretation and review of laboratory results Abnormal [place] Glucose [Mass/Vol] 270 mg/dL High 65 - 105 mg/dL [place] Interpretation and review of laboratory results Abnormal [place] Glucose [Mass/Vol] 244 mg/dL High 65 - 105 mg/dL [place] Interpretation and review of laboratory results Abnormal [place] Glucose [Mass/Vol] 226 mg/dL High 65 - 105 mg/dL [place] Interpretation and review of laboratory results Abnormal [place] Glucose [Mass/Vol] 272 mg/dL High 65 - 105 mg/dL [place] Interpretation and review of laboratory results Abnormal [place] Glucose [Mass/Vol] 290 mg/dL High 65 - 105 mg/dL [place] Interpretation and review of laboratory results Abnormal [place] POCT Glucoseon 07-30-2020 Glucose [Mass/Vol] 296 mg/dL High 74 - 100 mg/dL [place] Glucose [Mass/Vol] 284 mg/dL High 74 - 100 mg/dL [place] Glucose [Mass/Vol] 325 mg/dL High 74 - 100 mg/dL [place] POTASSIUMon 07-30-2020 Potassium [Moles/Vol] 4.4 mmol/L 3.7 - 5.3 mmol/L [place] Comment on above: SPECIMEN SLIGHTLY HE MOLYZED, RESULTS MAY BE ADVERSELY AFFECTED. Potassium [Moles/Vol] 3.8 mmol/L 3.7 - 5.3 mmol/L [place] Phosphoruson 07-30-2020 Phosphate [Mass/Vol] 1.7 mg/dL Low 2.6 - 4 .5 mg/dL [place] Phosphate [Mass/Vol] 1.7 mg/dL Low 2.6 - 4 .5 mg/dL [place] Phosphate [Mass/Vol] 1.7 mg/dL Low 2.6 - 4 .5 mg/dL [place] Phosphate [Mass/Vol] 0.6 mg/dL Critically low 2.6 - 4.5 mg/dL [place] Phosphate [Mass/Vol] 0.5 mg/dL Critically low 2.6 - 4.5 mg/dL [place] Interpretation and review of laboratory results Abnormal [place] Phosphate [Mass/Vol] 1.1 mg/dL Low 2.6 - 4 .5 mg/dL [place] SPECIMEN REJECTIONon 021 Ordered Test [id number] [place], [place] Reason for Rejection Unable to perform testing: Specimen quantity not sufficient. [place] Specimen source Nom (Unsp spec) .BLOOD [place] - NOT REPORTED [place] Salicylateon 07-30-2020 Interpretation and review of laboratory results Abnormal [place] Salicylate Lvl 1 mg/dL Low 3 - 10 mg/dL [place] TOXIC TRICYCLIC SC,Bon 07-30 Toxic Tricyclic Sc,Blood Negative NEGATIVE [place] TSH with Reflexon 07-30-2020 TSH Qn 0.35 m[IU]/L [place] Urinalysis Reflex to Culture on 07-30-2020 Bilirubin Urine Negative NEGATIVE [place] Color, UA YELLOW YELLOW [place] Glucose, Ur 3+ Abnormal NEGATIVE [place] Interpretation and review of laboratory results Abnormal [place] Ketones Ql (U) LARGE Abnormal NEGATIVE [place] Leukocyte esterase Test strip Ql (U) TRACE Abnormal NEGATIVE [place] Nitrite, Urine Negative NEGATIVE [place] pH, UA 5.0 [place] Protein (U) [Mass/Vol] 2+ Abnormal NEGATIVE [place] Specific [place], UA 1.019 [place], [place] Turbidity UA CLOUDY Abnormal CLEAR [place] Urinalysis Comments NOT REPORTED [place] Urine Hgb MODERATE Abnormal NEGATIVE [place] Urobilinogen, Urine Normal Normal [place] Urine Drug Screenon 07-30-19 21 Amphetamine Screen, Ur Negative NEGATIVE [place] Comment on above: (Positive cutoff 1000 ng/mL) Barbiturate Screen, Ur Negative NEGATIVE [place] Comment on above: (Positive cutoff 200 ng/mL) Benzodiazepine Screen, Urine Negative NEGATIVE [place] Comment on above: (Positive cutoff 200 ng/mL) Buprenorphine Urine NOT REPORTED NEGATIVE [place] Cannabinoid Scrn, Ur Negative NEGATIVE [place] Comment on above: (Positive cutoff 50 ng/mL) Cocaine Metabolite, Urine Negative NEGATIVE [place] Comment on above: (Positive cutoff 300 ng/mL) MDMA, Urine NOT REPORTED NEGATIVE [place] Methadone Screen, Urine Negative NEGATIVE [place] Comment on above: (Positive cutoff 300 ng/mL) Methamphetamine, Urine NOT REPORTED NEGATIVE [place] Opiates, Urine Negative NEGATIVE [place] Comment on above: (Positive cutoff 300 ng/mL) Oxycodone Screen, Ur Negative NEGATIVE [place] Comment on above: (Positive cutoff 100 ng/mL) Phencyclidine, Urine Negative NEGATIVE [place] Comment on above: (Positive cutoff 25 ng/mL) Propoxyphene, Urine NOT REPORTED NEGATIVE [place] Test Information Assay provides medical screening only. The absence of expected drug(s) and/or metabolite(s) may indicate diluted or adulterated urine, limitations of testing or timing of collection. [place] Comment on above: Testing for legal pu rposes should be confirmed by another method. To request confirmation of test result, please call the lab within 7 days of sample submission. Tricyclic Antidepressants, Urine NOT REPORTED NEGATIVE [place] XR CHEST PORTABLEon 07-30-19 21 Wong, Mhpn Incoming Radiant Results From [facility] - 07/30/2020 2:54 AM EST EXAMINATION: ONE [...] with the tip in the distal SVC. [place] EXAMINATION: ONE XRAY VIEW OF THE [...] line with tip in the distal SVC. [place] Scattered bilateral infiltrates most pronounced in the right lower lobe consistent with pneumonia. Right internal jugular line with the tip in the distal SVC. [place] ACETAMINOPHENon 07-29-2020 Acetaminophen [Mass/Vol] <10.0 Critically low 10.1-30 .0 [facility] Comment on above: Performed By: #### D RUGRPD #### [facility] [place] [facility] [address] [place], [place] [address] Alfiejamie Mederos ACETONE SERUMon 07-29-2020 ACETONE SMALL Abnormal NEGATIVE [facility] Comment on above: Performed By: #### A CETON #### [facility] [place] [facility] [address] [place], [place] [address] Alfie Mederos BLOOD GAS, VENOUSon 07-29-19 21 Cami Test NOT REPORTED [place] aPTT Coag (Bld) [Time] 37.0 s [place] Carboxyhemoglobin 0.6 % 0 - 5 % [place] Comment on above: Reference Range: Non-Smokers 0-2% Average Smoker 2-4% Heavy Smoker <10% FIO2 ROOM AIR [facility], [place] HCO3, Venous 4.2 mmol/L Low 24 - 30 mmol/L [facility], [place] Interpretation and review of laboratory results Abnormal [place] Methemoglobin NOT REPORTED 0 - 1.5 % [facility] [place], [place] Mode NOT REPORTED [facility], [place] Negative Base Excess, Denis NOT REPORTED 0 - 2 mmol/L [facility] NOTIFICATION NOT REPORTED [facility] NOTIFICATION TIME NOT REPORTED [place] O2 Device/Flow/% NOT REPORTED [place] Oxygen saturation in Blood 69.6 % 60 - 85 % [place] Oxyhemoglobin NOT REPORTED 95 - 98 % [place] pCO2, Denis 24.6 Low [place] pCO2, Denis, Temp Adj NOT REPORTED [place] Peep/Cpap NOT REPORTED [place] pH, Denis 6.864 Critically low [place] pH, Denis, Temp Adj NOT REPORTED [place] pO2, Denis 39.3 [place] pO2, Denis, Temp Adj NOT REPORTED [place] Positive Base Excess, Denis NOT REPORTED 0 - 2 mmol/L [facility] PSV NOT REPORTED [place] Pt. Position NOT REPORTED [facility], [place] Sample Site NOT REPORTED [facility], [place] Set Rate NOT REPORTED [place] Text for Respiratory NOT REPORTED [facility], [place] Total Hb NOT REPORTED 12 - 16 g/dl [facility], [place] Total Rate NOT REPORTED [place] VT NOT REPORTED [place] BLOOD GASES BTYon 07-29-2020 02 MODE ROOM AIR Normal [facility] [place] [facility] Comment on above: Performed By: #### A BG #### [facility] [place] [facility] [address] [place] [address] Alfie BOLAÑOS TEST Positive Normal [facility] [place] [facility] Comment on above: Performed By: #### A BG #### [facility] [place] [facility] [address] [place] [id number] Alfie Mederos Base excess Calc (Bld) [Moles/Vol] -26.4 mmol/L Critically low -2.0-2.0 [facility] [place] [facility] Comment on above: Performed By: #### A BG #### [facility] [place] [facility] [address] [place] [id number] Alfie Rosa M BIPAP PRESSURE Normal [facility] Comment on above: Performed By: #### A BG #### [facility] [place] [facility] [address] [place] [address] Alfie Rosa M CO2 [Moles/Vol] 3.7 mmol/L Critically low 23.0-28.0 [facility] Comment on above: Performed By: #### A BG #### [facility] [place] [facility] [address] [place] [address] Alfie Rosa M CPAP Normal [facility] Comment on above: Performed By: #### A BG #### [facility] [place] [facility] [address] [place] [address] Alfie Rosa M FIO2 Normal [facility] Comment on above: Performed By: #### A BG #### [facility] [place] [facility] [address] [place] [address] Alfie Rosa M HCO3 (Bld) [Moles/Vol] 3.3 mmol/L Critically low 22.0-26.0 [facility] Comment on above: Performed By: #### A BG #### [facility] [place] [facility] [address] [place] [address] Alfie Rosa M LPM Normal [facility] Comment on above: Performed By: #### A BG #### [facility] [place] [facility] [address] [place] [address] Alfie Rosa M MINUTE VOLUME Normal [facility] Comment on above: Performed By: #### A BG #### [facility] [place] [facility] [address] [place] [id number] Alfie Rosa M Oxygen (Bld) [Partial pressure] 84.7 mm[Hg] Normal 80.0-100.0 [facility] Comment on above: Performed By: #### A BG #### [facility] [place] [facility] [address] [place] [address] Alfie Rosa M Oxygen saturation in Blood 94.1 % Critically low 95.0-100.0 [facility] [place] [facility] Comment on above: Performed By: #### A BG #### [facility] [place] [facility] [address] [address] Alfie Rosa M PCO2 13.9 mmHg Critically low 35.0-45.[address] [facility] Comment on above: Performed By: #### A BG #### [facility] [place] [facility] [address] [address] Alfie Rosa M PEEP Normal [facility] [place] [facility] Comment on above: Performed By: #### A BG #### [facility] [place] [facility] [address] [address] Alfie Rosa M pH (Bld) 6.991 [pH] Critically low 7.350-7.450 [facility] Comment on above: Performed By: #### A BG #### [facility] [place] [facility] [address] [place] [address] Alfie Rosa M PIP [facility] Comment on above: Performed By: #### A BG #### [facility] [place] [facility] [address] [address] Alfie Rosa M PS Normal [facility] Comment on above: Performed By: #### A BG #### [facility] [place] [facility] [address] [place] [address] Alfie Rosa M PUNCTURE SITE RR Normal [facility] Comment on above: Performed By: #### A BG #### [facility] [place] [facility] [address] [place] [address] Alfie Rosa M RATE Normal [facility] [place] [facility] Comment on above: Performed By: #### A BG #### [facility] [place] [facility] [address] [place] [address] Alfie Rosa M VENT MODE Normal [facility] Comment on above: Performed By: #### A BG #### [facility] [place] [facility] [address] [place] [address] Alfie Rosa M VT [facility] Comment on above: Performed By: #### A BG #### [facility] [place] [facility] [address] [place] [address] Alfie Rosa M Basic Metabolic Panelon 3 Anion gap [Moles/Vol] Unable to calculat e anion gap due to CO2 less than 6. 9 - 17 mmol/L [place] Bun/Cre Ratio NOT REPORTED [place] Calcium [Mass/Vol] 7.0 mg/dL Low 8.6 - 10. 4 mg/dL [place] Chloride [Moles/Vol] 109 mmol/L High 98 - 10 7 mmol/L [place] CO2 [Moles/Vol] mmol/L Critically low 20 - 31 mmol/L [place] Creatinine [Mass/Vol] 0.98 mg/dL High 0.5 - 0.9 mg/dL [place] GFR >60 >60 mL/min [place] GFR Non- >60 >60 mL/min [place] GFR/1.73 sq M predicted among non-blacks MDRD (S/P/Bld) [Vol rate/Area] NOT REPORTED [place] GFR/1.73 sq M predicted among non-blacks MDRD (S/P/Bld) [Vol rate/Area] [place] Comment on above: Average GFR for 20-2 9 years old: 116 mL/min/1.73sq m Chronic Kidney Disease: <60 mL/min/1.73sq m Kidney failure: <15 mL/min/1.73sq m eGFR calculated using average adult body mass. Additional eGFR calculator available at: http://www.Validic/multiple_crcl_2012.htm Glucose [Mass/Vol] 360 mg/dL High 70 - 99 mg/dL [place] Interpretation and review of laboratory results Abnormal [place] Potassium [Moles/Vol] 4.1 mmol/L 3.7 - 5.3 mmol/L [place] Sodium [Moles/Vol] 136 mmol/L 135 - 144 mmol/L [place] Urea nitrogen [Mass/Vol] 30 mg/dL High 6 - 20 mg/d L [place] Anion gap [Moles/Vol] Unable to calculat e anion gap due to CO2 less than 6. 9 - 17 mmol/L [place] Bun/Cre Ratio NOT REPORTED [place] Calcium [Mass/Vol] 6.9 mg/dL Low 8.6 - 10. 4 mg/dL [place] Chloride [Moles/Vol] 110 mmol/L High 98 - 10 7 mmol/L [place] CO2 [Moles/Vol] mmol/L Critically low 20 - 31 mmol/L [place] Creatinine [Mass/Vol] 0.95 mg/dL High 0.5 - 0.9 mg/dL [place] GFR >60 >60 mL/min [place] GFR Non- >60 >60 mL/min [place] GFR/1.73 sq M predicted among non-blacks MDRD (S/P/Bld) [Vol rate/Area] [place] Comment on above: Average GFR for 20-2 9 years old: 116 mL/min/1.73sq m Chronic Kidney Disease: <60 mL/min/1.73sq m Kidney failure: <15 mL/min/1.73sq m eGFR calculated using average adult body mass. Additional eGFR calculator available at: http://www.Validic/multiple_crcl_2012.htm GFR/1.73 sq M predicted among non-blacks MDRD (S/P/Bld) [Vol rate/Area] NOT REPORTED [place] Glucose [Mass/Vol] 368 mg/dL High 70 - 99 mg/dL [place] Interpretation and review of laboratory results Abnormal [place] Potassium [Moles/Vol] 4.0 mmol/L 3.7 - 5.3 mmol/L [place] Sodium [Moles/Vol] 137 mmol/L 135 - 144 mmol/L [place] Urea nitrogen [Mass/Vol] 30 mg/dL High 6 - 20 mg/d L [place] CBC W MANUAL DIFFon 07-29-19 21 ATYPICAL LYMPH # 0.33 103/ul Normal [facility] Comment on above: Performed By: #### C SAAD MERRILL #### [facility] [place] [facility] [address] [place], [place] [address]ken Rosa M ATYPICAL LYMPH % 1 % Normal [facility] Comment on above: Performed By: #### Colt MERRILL PERSMR #### [facility] [place] [facility] [address] [place] [address] Alfie Rosa M BAND # 3.0 103/ul Critically high 0.0-0.3 [facility] Comment on above: Performed By: #### Colt MERRILL PERSMR #### [facility] [place] [facility] [address] [place] [address] Alfie Rosa M BAND % 9 % Critically high 0-5 [facility] Comment on above: Performed By: #### Colt MERRILL PERSMR #### [facility] [place] [facility] [address] [place] [address] Alfie Rosa M BASOM # 0.00 103/ul Normal 0.00-0.10 [facility] [place] [facility] Comment on above: Performed By: #### Colt MERRILL PERSMR #### [facility] [place] [facility] [address] [place] [address] Alfie Rosa M BASOM % 0.0 % Critically low 0.2-2.[address] [facility] Comment on above: Performed By: #### Colt MERRILL PERSMR #### [facility] [place] [facility] [address] [place] [address] Alfie Rosa M BLAST # Normal [facility] [place] [facility] Comment on above: Performed By: #### Colt MERRILL PERSMR #### [facility] [place] [facility] [address] [place] [address] Alfie Rosa M BLAST % Normal [facility] [place] [facility] Comment on above: Performed By: #### Colt MERRILL PERSMR #### [facility] [place] [facility] [address] [place] [address] Alfie Rosa M CORRECTED WBC Normal 4.0-11.0 [facility] Comment on above: Performed By: #### Colt MERRILL PERSMR #### [facility] [place] [facility] [address] [place] [address] Alfie Rosa M Eosinophils (Bld) [#/Vol] 0.00 103/ul Normal 0.00-0.70 [facility] [place] [facility] Comment on above: Performed By: #### C BCMAN, PERSMR #### [facility] [place] [facility] [address] [place] [address] Alfie Rosa M Eosinophils/100 WBC (Bld) 0.0 % Critically low 0.9-7.0 [facility] Comment on above: Performed By: #### Colt MERRILL, PERSMR #### [facility] [place] [facility] [address] [place] [address] Alfie Rosa M Erythrocyte distribution width (RBC) [Ratio] 13.2 % Normal 11.0-15.0 [facility] [place] [facility] Comment on above: Performed By: #### Colt MERRILL, PERSMR #### [facility] [place] [facility] [address] [place] [address] Alfie Rosa M Hematocrit (Bld) [Volume fraction] 48.3 % Critically high 36.0-48.0 [facility] [place] [facility] Comment on above: Performed By: #### Colt MERRILL, PERSMR #### [facility] [place] [facility] [address] [place] [address] Alfie Rosa M Hemoglobin (Bld) [Mass/Vol] 15.2 g/dl Normal 12.0-16.0 [facility] Comment on above: Performed By: #### Colt MERRILL PERSMR #### [facility] [place] [facility] [address] [place] [address] Alfie Rosa M LYMPHM # 3.00 103/ul Normal 1.20-3.80 [facility] [place] [facility] Comment on above: Performed By: #### Colt MERRILL PERSMR #### [facility] [place] [facility] [address] [place] [address] Alfie Rosa M LYMPHM% 9.0 % Critically low 20.5-60.[address] [facility] Comment on above: Performed By: #### Colt MERRILL, PERSMR #### [facility] [place] [facility] [address] [place] [address] Alfie Rosa M MCH (RBC) [Entitic mass] 26.8 pg Normal 26.7-34.0 [facility] Comment on above: Performed By: #### Colt MERRILL, PERSMR #### [facility] [place] [facility] [address] [place] [address] Alfie Rosa M MCHC (RBC) [Mass/Vol] 31.5 g/dl Normal 29.9-35.2 [facility] Comment on above: Performed By: #### Colt MERRILL PERSMR #### [facility] [place] [facility] [address] [place] [address] Alfiejamie Mederos MCV (RBC) [Entitic vol] 85.0 fL Normal 81.0-99.0 [facility] Comment on above: Performed By: #### Colt MERRILL PERSMR #### [facility] [place] [facility] [address] [place] [address] Alfie Rosa M METAMYELOCYTE # 1.0 103/ul Normal [facility] Comment on above: Performed By: #### Colt MERRILL PERSMR #### [facility] [place] [facility] [address] [place] [address] Alfie Rosa M METAMYELOCYTE % 3 % Normal [facility] Comment on above: Performed By: #### Colt MERRILL PERSMR #### [facility] [place] [facility] [address] [place] [address] Alfie Rosa M MONOM# 1.33 103/ul Critically high 0.30-0.80 [facility] Comment on above: Performed By: #### Colt MERRILL PERSMR #### [facility] [place] [facility] [address] [place] [address] Alfie Rosa M MONOM% 4.0 % Normal 1.7-12.0 [facility] Comment on above: Performed By: #### Colt MERRILL PERSMR #### [facility] [place] [facility] [address] [place] [address] Alfie Rosa M MYELOCYTE # 0.3 103/ul Normal [facility] Comment on above: Performed By: #### Colt MERRILL PERSMR #### [facility] [place] [facility] [address] [place] [address] Alfie Rosa M MYELOCYTE % 1 % Normal [facility] [place] [facility] Comment on above: Performed By: #### Colt MERRILL PERSMR #### [facility] [place] [facility] [address] [place] [address] Alfie Rosa M NRBC Normal [facility] [place] [facility] Comment on above: Performed By: #### C BCMAN, PERSMR #### [facility] [place] [facility] [address] [id number] Alfie Rosa M PATH REVIEW INDICATED Normal [facility] [place] [facility] Comment on above: Performed By: #### Colt MERRILL, PERSMR #### [facility] [place] [facility] [address] [place], [place] [address] Alfie Rosa M Platelet mean volume (Bld) [Entitic vol] 10.1 fL Normal 9.5-13.5 [facility] Comment on above: Performed By: #### Colt MERRILL, PERSMR #### [facility] [place] [facility] [address] [place] [address] Alfie Rosa M Platelets (Bld) [#/Vol] 384 103/ul Normal 150-450 [facility] Comment on above: Performed By: #### Colt MERRILL, PERSMR #### [facility] [place] [facility] [address] [place] [address] Alfie Rosa M RBC (Bld) [#/Vol] 5.68 106/ul Critically high 4.20-5.40 [facility] Comment on above: Result Comment: crit ical value repeated and verified for wbc Performed By: #### Colt MERRILL, PERSMR #### [facility] [place] [facility] [address] [place] [address] Alfie Rosa M SEG # 24.31 103/ul Critically high 1.40-6.50 [facility] Comment on above: Performed By: #### Colt MERRILL, PERSMR #### [facility] [place] [facility] [address] [place] [address] Alfie Rosa M Segmented neutrophils/100 WBC (Bld) 73.0 % Normal 43.0-75.0 [facility] Comment on above: Performed By: #### Colt MERRILL, PERSMR #### [facility] [place] [facility] [address] [place] [address] Alfie Rosa M WBC (Bld) [#/Vol] 33.3 103/ul Critically high 4.0-11.0 [facility] Comment on above: Result Comment: crit ical toya Performed By: #### Colt MERRILL, PERSMR #### [facility] [place] [facility] [address] [place] [address] Alfie Mederos CBC auto differentialon 07-02 Basophils (Bld) [#/Vol] 0.00 10*3/uL [place] Basophils/100 WBC (Bld) 0 % 0 - 2 % M [place] Differential Type NOT REPORTED [place] Eosinophils (Bld) [#/Vol] 0.00 10*3/uL [place] Eosinophils/100 WBC (Bld) 0 % Low 1 - 4 % [place] Erythrocyte distribution width (RBC) [Ratio] 13.0 % 11.8 - 14.4 % [place] Hematocrit (Bld) [Volume fraction] 45.0 % 36.3 - 47.1 % [place] Hemoglobin (Bld) [Mass/Vol] 14.0 g/dL 11.9 - 15.1 g/dL [place] Immature granulocytes (Bld) [#/Vol] 0.86 10*3/uL [place] Immature granulocytes (Bld) [#/Vol] 3 % High 0 [place] Interpretation and review of laboratory results Abnormal [place] Lymphocytes (Bld) [#/Vol] 1.43 10*3/uL [place] Lymphocytes/100 WBC (Bld) 5 % Low 24 - 44 % [place] MCH (RBC) [Entitic mass] 26.3 pg 25. 2 - 33.5 pg [place] MCHC (RBC) [Mass/Vol] 31.1 g/dL 28.4 - 34.8 g/dL [place] MCV (RBC) [Entitic vol] 84.6 fL 82.6 - 102.9 fL [place] Monocytes (Bld) [#/Vol] 1.14 10*3/uL High [place] Monocytes/100 WBC (Bld) 4 % 1 - 7 % M [place] Morphology Calvin (Bld) [Interp] Normal [place] Platelet mean volume (Bld) [Entitic vol] 9.9 fL 8.1 - 13.5 fL [place] Platelets (Bld) [#/Vol] 346 10*3/uL [place] Platelets (Bld) [#/Vol] NOT REPORTED [place] RBC (Bld) [#/Vol] 5.32 10*6/uL High 3.95 - 5.1 1 m/uL [place] RBC morphology finding Nom (Bld) NOT REPORTED [place] Segmented neutrophils/100 WBC (Bld) 88 % High 36 - 66 % [place] Segs Absolute 25.07 High [place] WBC (Bld) [#/Vol] 0.0 10*3/uL 0.0 per 10 0 WBC [place] WBC (Bld) [#/Vol] 28.5 10*3/uL [place] WBC Morphology NOT REPORTED [place] CT HEAD WO CONon 07-29-2020 CT [...] KALIN BRUNER Date: 2020-07-29 17:22 Normal [facility] [place] [facility] CULTURE URINEon 07-29-2020 CULTURE URINE Culture Observations: NO GROWTH Normal [facility] [place] [facility] Comment on above: Performed By: #### D RUGRPD #### [facility] [place] [facility] [address] [place], [place] [address] Alfie Mederso DRUG SCREEN RAPID (URINE)on 07-29-2020 AMP Negative Normal NEGATIVE [facility] Comment on above: Performed By: #### D RUGRPD #### [facility] [place] [facility] [address] [place], [place] [address] Alfie Mederos BAR Negative Normal NEGATIVE [facility] [place] [facility] Comment on above: Performed By: #### D RUGRPD #### [facility] [place] [facility] [address] [place] [address] Alfie Rosa M BUP Negative Normal NEGATIVE [facility] [place] [facility] Comment on above: Performed By: #### D RUGRPD #### [facility] [place] [facility] [address] [place] [address] Alfie Rosa M BZO Negative Normal NEGATIVE [facility] [place] [facility] Comment on above: Performed By: #### D RUGRPD #### [facility] [place] [facility] [address] [place] [address] Alfie Rosa M KRISTINA Negative Normal NEGATIVE [facility] [place] [facility] Comment on above: Performed By: #### D RUGRPD #### [facility] [place] [facility] [address] [place] [address] Alfie Rosa M CUT-OFFS SEE BELOW Normal [facility] Comment on above: Result Comment: AMP [...] ng/mL Performed By: #### D RUGRPD #### [facility] [place] [facility] [address] [place] [address] Alfie Rosa M DRUG CUT HEADER DRUG CLASS TEST SYSTEM CUT-OFF CONCENTRATIONS ARE FOLLOWS: Normal [facility] Comment on above: Performed By: #### D RUGRPD #### [facility] [place] [facility] [address] [place] [address] Alfie Rosa M mAMP Negative Normal NEGATIVE [facility] [place] [facility] Comment on above: Performed By: #### D RUGRPD #### [facility] [place] [facility] [address] [place] [address] Alfie Rosa M MTD Negative Normal NEGATIVE [facility] [place] [facility] Comment on above: Performed By: #### D RUGRPD #### [facility] [place] [facility] [address] [place] [address] Alfie Rosa M OPI Negative Normal NEGATIVE [facility] [place] [facility] Comment on above: Performed By: #### D RUGRPD #### [facility] [place] [facility] [address] [place] [address] Alfie Rosa M OXY Negative Normal NEGATIVE [facility] [place] [facility] Comment on above: Performed By: #### D RUGRPD #### [facility] [place] [facility] [address] [place] [address] Alfie Rosa M PCP Negative Normal NEGATIVE [facility] [place] [facility] Comment on above: Performed By: #### D RUGRPD #### [facility] [place] [facility] [address] [place] [address] Alfie Rosa M PPX Negative Normal NEGATIVE [facility] [place] [facility] Comment on above: Performed By: #### D RUGRPD #### [facility] [place] [facility] [address] [place] [address] Alfie Rosa M TCA Negative Normal NEGATIVE [facility] [place] [facility] Comment on above: Performed By: #### D RUGRPD #### [facility] [place] [facility] [address] [place] [address] Aflie Rosa M THC Negative Normal NEGATIVE [facility] [place] [facility] Comment on above: Performed By: #### D RUGRPD #### [facility] [place] [facility] [address] [place] [address] Alfie Rosa M ER URINE PROFILEon 1 Bilirubin [Mass/Vol] Negative Normal NEGATIVE [facility] [place] [facility] Comment on above: Performed By: #### D RUGRPD #### [facility] [place] [facility] [address] [place] [address] Alfie Rosa M BLOOD MODERATE Abnormal NEGATIVE [facility] [place] [facility] Comment on above: Performed By: #### D RUGRPD #### [facility] [place] [facility] [address] [place] [address] Alfie Rosa M Clarity (U) CLEAR Normal CLEAR [facility] [place] [facility] Comment on above: Performed By: #### D RUGRPD #### [facility] [place] [facility] [address] [place] [address] Alfie Rosa M Color (U) LT. YELLOW Normal YELLOW [facility] [place] [facility] Comment on above: Performed By: #### D RUGRPD #### [facility] [place] [facility] [address] [place], [place] [address] Alfiejamie Mederos ERUAHD A micrscopic examination will be performed if indicated. Normal [facility] [place] [facility] Comment on above: Performed By: #### D RUGRPD #### [facility] [place] [facility] [address] [place], [place] [address] Alfie Rosa M Glucose [Mass/Vol] >1000 Abnormal NEGATIVE [facility] Comment on above: Performed By: #### D RUGRPD #### [facility] [place] [facility] [address] [place] [address] Alfie Rosa M Ketones Ql (U) >=80 Abnormal NEGATIVE [facility] Comment on above: Performed By: #### D RUGRPD #### [facility] [place] [facility] [address] [place] [address] Alfie Rosa M Nitrite Ql (U) Negative Normal NEGATIVE [facility] Comment on above: Performed By: #### D BELTRAND #### [facility] [place] [facility] [address] [place] [address] Alfie Rosa M pH (Bld) 5.5 Normal 5-9 [facility] [place] [facility] Comment on above: Performed By: #### D BELTRAND #### [facility] [place] [facility] [address] [place] [address] Alfie Rosa M Protein (U) [Mass/Vol] 30 mg/dL Abnormal NEGAT MALISSA/ TRACE [facility] [place] [facility] Comment on above: Performed By: #### D KAILEY #### [facility] [place] [facility] [address] [place] [address] Alfie Rosa M SPEC GRAVITY 1.025 Normal 1.005-<=1.02 5 [facility] [place] [facility] Comment on above: Performed By: #### D BELTRAND #### [facility] [place] [facility] [address] [place] [address] Alfie Rosa M UR MICRO IND INDICATED Normal [facility] [place] [facility] Comment on above: Performed By: #### Jam BONNER #### [facility] [place] [facility] [address] [place] [address] Alfie Rosa M Urobilinogen Qn (U) 0.2 EU/dl Normal 0.2 - 1.0 [facility] Comment on above: Performed By: #### D RUGRPD #### [facility] [place] [facility] [address] [place], [place] [address] Alfie Mederos WBC (Bld) [#/Vol] Negative Normal NEGATIVE [facility] Comment on above: Performed By: #### D RUGRPD #### [facility] [place] [facility] [address] [place], [place] [address] Alfie Mederos ETHANOL (BLD ALC)on 07-29-19 Ethanol [Mass/Vol] NOTE: 80 mg/dl is the legal limit for a blood alcohol level Normal [facility] Comment on above: Performed By: #### D RUGRPD #### [facility] [place] [facility] [address] [place], [place] [address] Alfie Mederos Ethanol [Mass/Vol] mg/dL Normal [facility] Comment on above: Performed By: #### D RUGRPD #### [facility] [place] [facility] [address] [place], [place] [address] Alfie Mederos LACTIC ACID, WHOLE BLOODon 0 07-29-2020 Lactic Acid, Whole Blood 1.1 mmol/L 0.7 - 2.1 mmol/L [place] Magnesiumon 07-29-2020 Magnesium [Mass/Vol] 2.0 mg/dL 1.6 - 2 .6 mg/dL [place] Magnesium [Mass/Vol] 1.8 mg/dL 1.6 - 2 .6 mg/dL [place] NAon 07-29-2020 Sodium [Moles/Vol] 138 mmol/L Normal 137-145 [facility] Comment on above: Performed By: #### K , NA #### [facility] [place] [facility] [address] [place], [place] [address] Alfie Mederos PERIPHERAL SMEARon Pathologist Cyto stain Nom (Cvx/Vag) [ID] DR. LUÍS HAY [facility] Comment on above: Result Comment: nini ed neutrophilia with left shift, rule out infectious process mild erythrocytosis CPT: 51122 luís hay 08-01-20 Performed By: #### C DESIRAE, PERSMR #### [facility] [place] [facility] [address] [place], [place] [address] Alfie Rosa M PH VENOUS BLOODon 07-29-2020 PCO2 VENOUS 21.5 mmHg Critically low 40.0-52.0 [facility] Comment on above: Performed By: #### A BG #### [facility] [place] [facility] [address] [place], [place] [address] Alfie Rosa M pH VENOUS <6.93 Critically low 7.33-7.43 [facility] Comment on above: Performed By: #### A BG #### [facility] [place] [facility] [address] [place], [place] [address] Alfie Rosa M POC Glucose Fingerstickon Glucose [Mass/Vol] 334 mg/dL High 65 - 105 mg/dL [place] Interpretation and review of laboratory results Abnormal [place] Glucose [Mass/Vol] 340 mg/dL High 65 - 105 mg/dL [place] Interpretation and review of laboratory results Abnormal [place] Glucose [Mass/Vol] 363 mg/dL High 65 - 105 mg/dL [place] Interpretation and review of laboratory results Abnormal [place] POINT OF CARE GLUCOSEon 07-02 Glucose [Mass/Vol] 337 mg/dL Critically high 74-106 [facility] Comment on above: Performed By: #### P OCGLUC #### [facility] [place] [facility] [address] [place], [place] [address] Alfie Rosa M Glucose [Mass/Vol] 367 mg/dL Critically high 74-106 [facility] Comment on above: Performed By: #### D RUGRPD #### [facility] [place] [facility] [address] [place], [place] [address] Alfie Rosa M Glucose [Mass/Vol] 375 mg/dL Critically high 74-106 [facility] Comment on above: Performed By: #### D RUGRPD #### [facility] [place] [facility] [address] [place], [place] [address] Alfie Rosa M Glucose [Mass/Vol] 403 mg/dL Critically high 74-106 [facility] Comment on above: Performed By: #### A BG #### [facility] [place] [facility] [address] [place], [place] [address] Alfie Mederos POTASSIUMon 07-29-2020 Potassium [Moles/Vol] 4.0 mmol/L Normal 3.4-5.0 [facility] Comment on above: Performed By: #### K , NA #### [facility] [place] [facility] [address] [place], [place] [address] Alfie Mederos URon 07-29-2020 , QUAL Negative Normal NEGATIVE [facility] Comment on above: Performed By: #### P REGU #### [facility] [place] [facility] [address] [place], [place] [id number] Alfie Mederos PROF 14(COMP METB)on 021 Albumin [Mass/Vol] 3.2 g/dL Critically low 3.5-5.[address] [facility] Comment on above: Performed By: #### D RUGRPD #### [facility] [place] [facility] [address] [place], [place] [address] Alfie Mederos Albumin/Globulin [Mass ratio] 1.0 {ratio} Normal [facility] Comment on above: Performed By: #### D RUGRPD #### [facility] [place] [facility] [address] [place], [place] [address] Alfie Rosa M ALP [Catalytic activity/Vol] 135 U/L Critically high 38-126 [facility] Comment on above: Performed By: #### D RUGRPD #### [facility] [place] [facility] [address] [place], [place] [address] Alfie Mederos ALT [Catalytic activity/Vol] 27 U/L Normal 9-52 [facility] Comment on above: Performed By: #### D RUGRPD #### [facility] [place] [facility] [address] [place], [place] [address] Alfiejamie Mederos Anion gap [Moles/Vol] 31.9 mmol/L Normal [facility] Comment on above: Performed By: #### D RUGRPD #### [facility] [place] [facility] [address] [place], [place] [address] Alfie Mederos AST [Catalytic activity/Vol] 52 U/L Critically high 14-36 [facility] Comment on above: Performed By: #### D RUGRPD #### [facility] [place] [facility] [address] [place], [place] [address] Alfie Rosa M Bilirubin Ql (U) 0.5 mg/dL Normal 0.2-1.3 [facility] Comment on above: Performed By: #### D RUGRPD #### [facility] [place] [facility] [address] [place], [place] [address] Alfie Rosa M Calcium [Mass/Vol] 6.8 mg/dL Critically low 8.4-10.2 [facility] [place] [facility] Comment on above: Performed By: #### D RUGRPD #### [facility] [place] [facility] [address] [place] [address] Alfie Rosa M Chloride [Moles/Vol] 103 mmol/L Normal 98-107 [facility] Comment on above: Performed By: #### D RUGRPD #### [facility] [place] [facility] [address] [place] [address] Alfie Rosa M CO2 [Moles/Vol] mmol/L Critically low 22.0-30.0 [facility] Comment on above: Result Comment: TEST REPEATED CRITICAL VALUE VERIFIED Performed By: #### D RUGRPD #### [facility] [place] [facility] [address] [place], [place] [address] Alfie Rosa M Creatinine [Mass/Vol] 1.08 mg/dL Critically high 0.52-1.04 [facility] Comment on above: Performed By: #### D RUGRPD #### [facility] [place] [facility] [address] [place], [place] [address] Alfie Rosa M EGFR-AF [place]IZ[place] >60 Normal >=60 [facility] Comment on above: Performed By: #### D RUGRPD #### [facility] [place] [facility] [address] [place], [place] [address] Alfie Rosa M EGFR-NON AF [place]IZ[place] >60 Normal >=60 [facility] Comment on above: Performed By: #### D RUGRPD #### [facility] [place] [facility] [address] [place], [place] [address] Alfie Rosa M Globulin (S) [Mass/Vol] 3.1 g/dL Normal [facility] Comment on above: Performed By: #### D RUGRPD #### [facility] [place] [facility] [address] [place], [place] [address] Alfie Rosa M Glucose [Mass/Vol] 448 mg/dL Critically high 74-106 [facility] Comment on above: Performed By: #### D RUGRPD #### [facility] [place] [facility] [address] [place], [place] [address] Alfie Rosa M Potassium [Moles/Vol] 3.9 mmol/L Normal 3.4-5.0 [facility] Comment on above: Performed By: #### D RUGRPD #### [facility] [place] [facility] [address] [place], [place] [address] Alfie Rosa M Protein [Mass/Vol] 6.3 g/dL Normal 6.1-8.2 [facility] Comment on above: Performed By: #### D RUGRPD #### [facility] [place] [facility] [address] [place], [place] [address] Alfie Rosa M Sodium [Moles/Vol] 136 mmol/L Critically low 137-[address] [facility] Comment on above: Performed By: #### D RUGRPD #### [facility] [place] [facility] [address] [place], [place] [address] Alfie Rosa M Urea nitrogen [Mass/Vol] 28.0 mg/dL Critically high 7.0-17 .0 [facility] Comment on above: Performed By: #### D RUGRPD #### [facility] [place] [facility] [address] [place], [place] [address] Alfie Rosa M Urea nitrogen/Creatinine [Mass ratio] 25.9 mg/mg Normal [facility] Comment on above: Performed By: #### D RUGRPD #### [facility] [place] [facility] [address] [place], [place] [address] Alfie Rosa M Phosphoruson 07-29-2020 Phosphate [Mass/Vol] 2.9 mg/dL 2.6 - 4 .5 mg/dL [facility], [place] Phosphate [Mass/Vol] 2.6 mg/dL 2.6 - 4 .5 mg/dL [facility], [place] Rapid Covid-19 PCR (CVDRPD)o n 07-29-2020 [employer] LDT Info SEE BELOW Normal [facility] Comment on above: Result Comment: This test is not yet approved or cleared by the [place] Food and Drug Administration (FDA) . This test was [facility]. The performance characteristics of this test were validated by [facility] [place] [facility]. The results are not intended to be used as the sole means for clinical diagnosis or patient management decisions. [facility] [place] [facility] is authorized under Clinical Laboratory Improvement Amendments (CLIA) to perform high-complexity testing. When diagnostic testing is negative, the possibility of a false negative should be considered in the context of a patients recent exposures and the presence of clinical signs and symptoms consistent with SARS-CoV-2. Performed By: #### C VDRPD #### [facility] [place] [facility] [address] [place] [address] Alfiejamie Mederos SARS-CoV-2 NOT DETECTED Normal NOT DETECTED [facility] Comment on above: Result Comment: This test is not yet approved or cleared by the [place] Food and Drug Administration (FDA). This test was developed by [employer], [facility]. The performance characteristics of this test were validated by [facility] [place] [facility]. The results are not intended to be used as the sole means for clinical diagnosis or patient management decisions. [facility] [place] [facility] is authorized under Clinical Laboratory Improvement Amendments (CLIA) to perform high-complexity testing. Performed By: #### C VDRPD #### [facility] [place] [facility] [address] [place] [address] Alfie Rosa M SALICYLATEon 07-29-2020 SALICYLATE 10.6 mg/dL Normal <=20.0 [facility] [place] [facility] Comment on above: Performed By: #### A BG #### [facility] [place] [facility] [address] [place] [address] Alfie Rosa M URINE MICROSCOPIC ONLYon AMORPHOUS CRYSTALS FEW Normal [facility] Comment on above: Performed By: #### D RUGRPD #### [facility] [place] [facility] [address] [place] [address] Alfie Rosa M Bacteria LM.HPF (Urine sed) [#/Area] SMALL Abnormal NONE SEEN [facility] [place] [facility] Comment on above: Performed By: #### D RUGRPD #### [facility] [place] [facility] [address] [place], [place] [address] Alfie Rosa M CAST NONE SEEN Normal NONE SEEN [facility] [place] [facility] Comment on above: Performed By: #### D RUGRPD #### [facility] [place] [facility] [address] [place], [place] [address] Alfie Rosa M Crystals LM Nom (Urine sed) SEEN Abnormal NONE SEEN [facility] [place] [facility] Comment on above: Performed By: #### D RUGRPD #### [facility] [place] [facility] [address] [place] [id number] Alfie Rosa M CULTURE INDICATED Normal [facility] [place] [facility] Comment on above: Performed By: #### D RUGRPD #### [facility] [place] [facility] [address] [place], [place] [address] Alfie Rosa M Epithelial cells LM.HPF (Urine sed) [#/Area] FEW Abnormal NONE SEEN /RARE [facility] [place] [facility] Comment on above: Performed By: #### D RUGRPD #### [facility] [place] [facility] [address] [place], [place] [address] Alfie Ros Am MUCOUS TRACE Abnormal NONE SEEN [facility] [place] [facility] Comment on above: Performed By: #### D RUGRPD #### [facility] [place] [facility] [address] [place], [place] [address] Alfie Rosa M RBC (U) [#/Vol] 2-5 Abnormal 0-2 [facility] Comment on above: Performed By: #### D RUGRPD #### [facility] [place] [facility] [address] [place], [place] [address] Alfie Rosa M WBC (Bld) [#/Vol] 2-5 Abnormal NONE SEEN [facility] Comment on above: Performed By: #### D RUGRPD #### [facility] [place] [facility] [address] [place], [place] [address] Alfie Rosa M XR CHEST 1 Von 07-29-2020 XR CHEST 1 V CHEST X-RAY, 1 VIEW HISTORY: Acute respiratory distress.. COMPARISON: None. FINDINGS: The heart, quin, and mediastinum are unremarkable. There is right lower lobe airspace disease. There are no pleural effusions. There is no pneumothorax. IMPRESSION: Right lower lobe atelectasis or infiltrate. Electronically authenticated by: TAMIKO ÁLVAREZ Date: 2020-07-29 11:44 Normal [facility] [place] [facility] Comprehensive Metabolic Pane galileo 06-10-2020 Albumin [Mass/Vol] 2.3 g/dL Low 3.2 - 5.2 g/dL [facility] ALP [Catalytic activity/Vol] 70 U/L 40 - 140 U/L [facility] ALT [Catalytic activity/Vol] 21 U/L 14 - 65 U/L [facility] Anion gap [Moles/Vol] 9 mmol/L Low 10 - 2 0 mmol/L [facility] AST [Catalytic activity/Vol] 14 U/L 0 - 45 U/L [facility] Bilirubin [Mass/Vol] 0.3 mg/dL 0 - 1.3 mg/dL [facility] Calcium [Mass/Vol] 8.4 mg/dL 8.4 - 10. 2 mg/dL [facility] Chloride [Moles/Vol] 111 mmol/L High 98 - 10 8 mmol/L [facility] Creatinine [Mass/Vol] 0.56 mg/dL 0.40 - 1.10 [facility] GFR/1.73 sq M predicted among non-blacks MDRD (S/P/Bld) [Vol rate/Area] The eGFR should be used for monitoring renal function only and not for medication dosing. [facility] GFR/1.73 sq M.predicted CKD-EPI (S/P/Bld) [Vol rate/Area] 128 >=60 mL/min/1.73 m2 [facility] Glucose [Mass/Vol] 267 mg/dL High 65 - 99 mg/dL [facility] HCO3 [Moles/Vol] 24 mmol/L 21 - 32 mmol/L [facility] Interpretation and review of laboratory results Abnormal [facility] Potassium [Moles/Vol] 3.9 mmol/L 3.5 - 5.1 mmol/L [facility] Protein [Mass/Vol] 5.5 g/dL Low 6 - 8 g/dL [facility]th Sodium [Moles/Vol] 140 mmol/L 135 - 145 mmol/L [facility] Urea nitrogen [Mass/Vol] 9 mg/dL 8 - 25 mg/d L [facility] Urea nitrogen/Creatinine [Mass ratio] 16.1 mg/mg [facility] POC Glucoseon 06-10-2020 Glucose [Mass/Vol] 236 mg/dL High 65 - 99 mg/dL [facility] Interpretation and review of laboratory results Abnormal [facility] Glucose [Mass/Vol] 457 mg/dL Critically high 65 - 9 9 mg/dL [facility] Interpretation and review of laboratory results Abnormal [facility] Critical result acted upon time of test. Test performed at bedside. [facility] Glucose [Mass/Vol] 313 mg/dL High 65 - 99 mg/dL [facility] Interpretation and review of laboratory results Abnormal [facility] Phosphoruson 06-10-2020 Interpretation and review of laboratory results Normal [facility] Phosphate [Mass/Vol] 3.7 mg/dL 2.7 - 4 .5 mg/dL [facility] CBC WITH AUTO DIFFERENTIALon 06-09-2020 Basophils (Bld) [#/Vol] 0.01 10*3/uL [facility] Basophils/100 WBC (Bld) 0.2 % [facility] Eosinophils (Bld) [#/Vol] 0.03 10*3/uL [facility] Eosinophils/100 WBC (Bld) 0.5 % [facility] Erythrocyte distribution width (RBC) [Entitic vol] 13.9 % 11.6 - 14.8 % [facility] Hematocrit (Bld) [Volume fraction] 34.1 % Low 36 - 46 % [facility] Hemoglobin (Bld) [Mass/Vol] 11.8 g/dL Low 12 - 16 g/dL [facility] Immature granulocytes (Bld) [#/Vol] 0.02 10*3/uL [facility] Immature granulocytes/100 WBC (Bld) 0.30 % [facility] Comment on above: The IG parameter is the percentage of metamyelocytes, myelocytes and promyelocytes. An immature granulocyte count (IG) of 1% or more suggests the possibility of infection, an IG count of 3% is very likely related to an infection. Interpretation and review of laboratory results Abnormal [facility] Lymphocytes (Bld) [#/Vol] 1.33 10*3/uL [facility] Lymphocytes/100 WBC (Bld) 22.1 % [facility] MCH (RBC) [Entitic mass] 27.0 pg 26 - 34 pg [facility] MCHC (RBC) [Mass/Vol] 34.6 g/dL 31 - 37 g/dL [facility] MCV (RBC) [Entitic vol] 78.0 fL Low 80 - 100 fL [facility] Monocytes (Bld) [#/Vol] 0.57 10*3/uL [facility] Monocytes/100 WBC (Bld) 9.5 % [facility] Neutrophils (Bld) [#/Vol] 4.05 10*3/uL [facility] Neutrophils/100 WBC (Bld) 67.4 % [facility] Nucleated RBC (Bld) [#/Vol] 0.00 10*3/uL [facility] Nucleated RBC/100 WBC (Bld) [Ratio] 0.0 % [facility] Platelet mean volume (Bld) [Entitic vol] 9.8 fL 9.4 - 12.4 fL [facility] Platelets (Bld) [#/Vol] 255 10*3/uL [facility] RBC (Bld) [#/Vol] 4.37 10*6/uL [facility] WBC (Bld) [#/Vol] 6.01 10*3/uL [facility] Comprehensive Metabolic Pane galileo 06-09-2020 Albumin [Mass/Vol] 2.6 g/dL Low 3.2 - 5.2 g/dL [facility] ALP [Catalytic activity/Vol] 68 U/L 40 - 140 U/L [facility] ALT [Catalytic activity/Vol] 19 U/L 14 - 65 U/L [facility] Anion gap [Moles/Vol] 11 mmol/L 10 - 2 0 mmol/L [facility] AST [Catalytic activity/Vol] 11 U/L 0 - 45 U/L [facility] Bilirubin [Mass/Vol] 0.4 mg/dL 0 - 1.3 mg/dL [facility] Calcium [Mass/Vol] 8.5 mg/dL 8.4 - 10. 2 mg/dL [facility] Chloride [Moles/Vol] 110 mmol/L High 98 - 10 8 mmol/L [facility] Creatinine [Mass/Vol] 0.59 mg/dL 0.40 - 1.10 [facility] GFR/1.73 sq M predicted among non-blacks MDRD (S/P/Bld) [Vol rate/Area] The eGFR should be used for monitoring renal function only and not for medication dosing. [facility] GFR/1.73 sq M.predicted CKD-EPI (S/P/Bld) [Vol rate/Area] 126 >=60 mL/min/1.73 m2 [facility] Glucose [Mass/Vol] 239 mg/dL High 65 - 99 mg/dL [facility] HCO3 [Moles/Vol] 19 mmol/L Low 21 - 32 mmol/L [facility] Potassium [Moles/Vol] 3.2 mmol/L Low 3.5 - 5.1 mmol/L [facility] Protein [Mass/Vol] 5.8 g/dL Low 6 - 8 g/dL [facility] alth Sodium [Moles/Vol] 137 mmol/L 135 - 145 mmol/L [facility] Urea nitrogen [Mass/Vol] 6 mg/dL Low 8 - 25 mg/d L [facility] Urea nitrogen/Creatinine [Mass ratio] 10.2 mg/mg [facility] Magnesium Levelon 06-09-2020 Interpretation and review of laboratory results Normal [facility] Magnesium [Mass/Vol] 1.8 mg/dL 1.6 - 2 .4 mg/dL [facility] Otheron 06-09-2020 Interpretation and review of laboratory results Abnormal [facility] Interpretation and review of laboratory results Abnormal [facility] POC Glucoseon 06-09-2020 Glucose [Mass/Vol] 303 mg/dL High 65 - 99 mg/dL [facility] Interpretation and review of laboratory results Abnormal [facility] Glucose [Mass/Vol] 161 mg/dL High 65 - 99 mg/dL [facility] Glucose [Mass/Vol] 335 mg/dL High 65 - 99 mg/dL [facility] Glucose [Mass/Vol] 264 mg/dL High 65 - 99 mg/dL [facility] Interpretation and review of laboratory results Abnormal [facility] Glucose [Mass/Vol] 247 mg/dL High 65 - 99 mg/dL [facility] Interpretation and review of laboratory results Abnormal [facility] Phosphoruson 06-09-2020 Phosphate [Mass/Vol] 2.1 mg/dL Low 2.7 - 4 .5 mg/dL [facility] Potassium Levelon 06-09-2020 Interpretation and review of laboratory results Normal [facility] Potassium [Moles/Vol] 3.6 mmol/L 3.5 - 5.1 mmol/L [facility] URINALYSISon 06-09-2020 Bacteria Auto Ql (U) None Seen None Se en /hpf [facility] Bilirubin Ql (U) Negative Negative [facility] th Clarity Refractometry automated (U) Clear Clear [facility] Color (U) Colorless Colorless, Yellow [facility] Glucose Auto test strip (U) [Mass/Vol] >=500 Abnormal Negative mg/dL [facility] Hemoglobin Auto test strip Ql (U) Negative Negative [facility] Interpretation and review of laboratory results Abnormal [facility] Ketones (U) [Mass/Vol] Negative Negat malissa mg/dL [facility] Leukocyte esterase Auto test strip Ql (U) Negative Negative [facility] Mucus Auto (Urine sed) [#/Area] Rare None Seen, Rare /lpf [facility] Nitrite Auto test strip Ql (U) Negative Negative [facility] pH (U) 6.0 [pH] [facility] Protein (U) [Mass/Vol] Negative Negat malissa mg/dL [facility] RBC Auto (Urine sed) [#/Area] 1 [facility] Specific gravity (U) [Rel density] 1.009 [facility] Urobilinogen (U) [Mass/Vol] <2.0 <2.0 mg/dL [facility] WBC Auto (Urine sed) [#/Area] 1 [facility] Microscopic examination is performed on all urinalysis samples and only positive findings are reported. The test for blood on the chemical analytic portion of urinalysis may also be positive due to hemoglobinuria and myoglobinuria and if red blood cells are present they are quantified by microscopic examination. [facility] Basic Metabolic Panelon 12- 0 Anion gap [Moles/Vol] 18 mmol/L 10 - 2 0 mmol/L [facility] Calcium [Mass/Vol] 8.7 mg/dL 8.4 - 10. 2 mg/dL [facility] Chloride [Moles/Vol] 107 mmol/L 98 - 10 8 mmol/L [facility] Creatinine [Mass/Vol] 0.82 mg/dL 0.40 - 1.10 [facility] GFR/1.73 sq M predicted among non-blacks MDRD (S/P/Bld) [Vol rate/Area] The eGFR should be used for monitoring renal function only and not for medication dosing. [facility] GFR/1.73 sq M.predicted CKD-EPI (S/P/Bld) [Vol rate/Area] 98 >=60 mL/min/1.73 m2 [facility] Glucose [Mass/Vol] 321 mg/dL High 65 - 99 mg/dL [facility] HCO3 [Moles/Vol] 11 mmol/L Low 21 - 32 mmol/L [facility] Potassium [Moles/Vol] 4.0 mmol/L 3.5 - 5.1 mmol/L [facility] Sodium [Moles/Vol] 132 mmol/L Low 135 - 145 mmol/L [facility] Urea nitrogen [Mass/Vol] 7 mg/dL Low 8 - 25 mg/d L [facility] Urea nitrogen/Creatinine [Mass ratio] 8.5 mg/mg Low [facility] Anion gap [Moles/Vol] 14 mmol/L 10 - 2 0 mmol/L [facility] Calcium [Mass/Vol] 8.8 mg/dL 8.4 - 10. 2 mg/dL [facility] Chloride [Moles/Vol] 113 mmol/L High 98 - 10 8 mmol/L [facility] Creatinine [Mass/Vol] 0.63 mg/dL 0.40 - 1.10 [facility] GFR/1.73 sq M predicted among non-blacks MDRD (S/P/Bld) [Vol rate/Area] The eGFR should be used for monitoring renal function only and not for medication dosing. [facility] GFR/1.73 sq M.predicted CKD-EPI (S/P/Bld) [Vol rate/Area] 123 >=60 mL/min/1.73 m2 [facility] Glucose [Mass/Vol] 105 mg/dL High 65 - 99 mg/dL [facility] HCO3 [Moles/Vol] 11 mmol/L Low 21 - 32 mmol/L [facility] Interpretation and review of laboratory results Abnormal [facility] Potassium [Moles/Vol] 4.4 mmol/L 3.5 - 5.1 mmol/L [facility] Sodium [Moles/Vol] 134 mmol/L Low 135 - 145 mmol/L [facility] Urea nitrogen [Mass/Vol] 7 mg/dL Low 8 - 25 mg/d L [facility] Urea nitrogen/Creatinine [Mass ratio] 11.1 mg/mg [facility] Anion gap [Moles/Vol] 11 mmol/L 10 - 2 0 mmol/L [facility] Calcium [Mass/Vol] 8.9 mg/dL 8.4 - 10. 2 mg/dL [facility] Chloride [Moles/Vol] 113 mmol/L High 98 - 10 8 mmol/L [facility] Creatinine [Mass/Vol] 0.55 mg/dL 0.40 - 1.10 [facility] GFR/1.73 sq M predicted among non-blacks MDRD (S/P/Bld) [Vol rate/Area] The eGFR should be used for monitoring renal function only and not for medication dosing. [facility] GFR/1.73 sq M.predicted CKD-EPI (S/P/Bld) [Vol rate/Area] 129 >=60 mL/min/1.73 m2 [facility] Glucose [Mass/Vol] 134 mg/dL High 65 - 99 mg/dL [facility] HCO3 [Moles/Vol] 15 mmol/L Low 21 - 32 mmol/L [facility] Interpretation and review of laboratory results Abnormal [facility] Potassium [Moles/Vol] 3.0 mmol/L Low 3.5 - 5.1 mmol/L [facility] Sodium [Moles/Vol] 136 mmol/L 135 - 145 mmol/L [facility] Urea nitrogen [Mass/Vol] 7 mg/dL Low 8 - 25 mg/d L [facility] Urea nitrogen/Creatinine [Mass ratio] 12.7 mg/mg [facility] Beta-Hydroxybutyrateon 06-08 Beta hydroxybutyrate [Moles/Vol] 0.4 mmol/L High 0 - 0.3 mmol/L [facility] Beta hydroxybutyrate [Moles/Vol] 0.3 mmol/L 0 - 0.3 mmol/L [facility] CBC WITH AUTO DIFFERENTIALon 06-08-2020 Basophils (Bld) [#/Vol] 0.02 10*3/uL [facility] Basophils/100 WBC (Bld) 0.2 % [facility] Eosinophils (Bld) [#/Vol] 0.02 10*3/uL [facility] Eosinophils/100 WBC (Bld) 0.2 % [facility] Erythrocyte distribution width (RBC) [Entitic vol] 13.4 % 11.6 - 14.8 % [facility] Hematocrit (Bld) [Volume fraction] 37.5 % 36 - 46 % [facility] Hemoglobin (Bld) [Mass/Vol] 13.0 g/dL 12 - 16 g/dL [facility] Immature granulocytes (Bld) [#/Vol] 0.06 10*3/uL [facility] Immature granulocytes/100 WBC (Bld) 0.60 % [facility] Comment on above: The IG parameter is the percentage of metamyelocytes, myelocytes and promyelocytes. An immature granulocyte count (IG) of 1% or more suggests the possibility of infection, an IG count of 3% is very likely related to an infection. Interpretation and review of laboratory results Abnormal [facility] Lymphocytes (Bld) [#/Vol] 0.97 10*3/uL [facility] Lymphocytes/100 WBC (Bld) 10.3 % [facility] MCH (RBC) [Entitic mass] 27.1 pg 26 - 34 pg [facility] MCHC (RBC) [Mass/Vol] 34.7 g/dL 31 - 37 g/dL [facility] MCV (RBC) [Entitic vol] 78.1 fL Low 80 - 100 fL [facility] Monocytes (Bld) [#/Vol] 0.61 10*3/uL [facility] Monocytes/100 WBC (Bld) 6.5 % [facility] Neutrophils (Bld) [#/Vol] 7.76 10*3/uL High [facility] Neutrophils/100 WBC (Bld) 82.2 % [facility] Nucleated RBC (Bld) [#/Vol] 0.01 10*3/uL High [facility] Nucleated RBC/100 WBC (Bld) [Ratio] 0.1 % [facility] Platelet mean volume (Bld) [Entitic vol] 9.2 fL Low 9.4 - 12.4 fL [facility] Platelets (Bld) [#/Vol] 293 10*3/uL [facility] RBC (Bld) [#/Vol] 4.80 10*6/uL [facility] WBC (Bld) [#/Vol] 9.44 10*3/uL [facility] Comprehensive Metabolic Pane [facility] 06-08-2020 Albumin [Mass/Vol] 2.6 g/dL Low 3.2 - 5.2 g/dL [facility] ALP [Catalytic activity/Vol] 68 U/L 40 - 140 U/L [facility] ALT [Catalytic activity/Vol] 20 U/L 14 - 65 U/L [facility] Anion gap [Moles/Vol] 15 mmol/L 10 - 2 0 mmol/L [facility] AST [Catalytic activity/Vol] 17 U/L 0 - 45 U/L [facility] Bilirubin [Mass/Vol] 0.2 mg/dL 0 - 1.3 mg/dL [facility] Calcium [Mass/Vol] 8.5 mg/dL 8.4 - 10. 2 mg/dL [facility] Chloride [Moles/Vol] 112 mmol/L High 98 - 10 8 mmol/L [facility] Creatinine [Mass/Vol] 0.65 mg/dL 0.40 - 1.10 [facility] GFR/1.73 sq M predicted among non-blacks MDRD (S/P/Bld) [Vol rate/Area] The eGFR should be used for monitoring renal function only and not for medication dosing. [facility] GFR/1.73 sq M.predicted CKD-EPI (S/P/Bld) [Vol rate/Area] 122 >=60 mL/min/1.73 m2 [facility] Glucose [Mass/Vol] 255 mg/dL High 65 - 99 mg/dL [facility] HCO3 [Moles/Vol] 12 mmol/L Low 21 - 32 mmol/L [facility] Potassium [Moles/Vol] 3.6 mmol/L 3.5 - 5.1 mmol/L [facility] Protein [Mass/Vol] 5.8 g/dL Low 6 - 8 g/dL [facility] Sodium [Moles/Vol] 135 mmol/L 135 - 145 mmol/L [facility] Urea nitrogen [Mass/Vol] 9 mg/dL 8 - 25 mg/d L [facility] Urea nitrogen/Creatinine [Mass ratio] 13.8 mg/mg [facility] Albumin [Mass/Vol] 2.8 g/dL Low 3.2 - 5.2 g/dL [facility] ALP [Catalytic activity/Vol] 75 U/L 40 - 140 U/L [facility] ALT [Catalytic activity/Vol] 21 U/L 14 - 65 U/L [facility] Anion gap [Moles/Vol] 14 mmol/L 10 - 2 0 mmol/L [facility] AST [Catalytic activity/Vol] 20 U/L 0 - 45 U/L [facility] Bilirubin [Mass/Vol] 0.2 mg/dL 0 - 1.3 mg/dL [facility] Calcium [Mass/Vol] 8.7 mg/dL 8.4 - 10. 2 mg/dL [facility] Chloride [Moles/Vol] 115 mmol/L High 98 - 10 8 mmol/L [facility] Creatinine [Mass/Vol] 0.56 mg/dL 0.40 - 1.10 [facility] GFR/1.73 sq M predicted among non-blacks MDRD (S/P/Bld) [Vol rate/Area] The eGFR should be used for monitoring renal function only and not for medication dosing. [facility] GFR/1.73 sq M.predicted CKD-EPI (S/P/Bld) [Vol rate/Area] 128 >=60 mL/min/1.73 m2 [facility] Glucose [Mass/Vol] 100 mg/dL High 65 - 99 mg/dL [facility] HCO3 [Moles/Vol] 12 mmol/L Low 21 - 32 mmol/L [facility] Potassium [Moles/Vol] 3.7 mmol/L 3.5 - 5.1 mmol/L [facility] Protein [Mass/Vol] 6.3 g/dL 6 - 8 g/dL [facility] Sodium [Moles/Vol] 137 mmol/L 135 - 145 mmol/L [facility] Urea nitrogen [Mass/Vol] 9 mg/dL 8 - 25 mg/d L [facility] Urea nitrogen/Creatinine [Mass ratio] 16.1 mg/mg [facility] Albumin [Mass/Vol] 2.9 g/dL Low 3.2 - 5.2 g/dL [facility] ALP [Catalytic activity/Vol] 76 U/L 40 - 140 U/L [facility] ALT [Catalytic activity/Vol] 22 U/L 14 - 65 U/L [facility] Anion gap [Moles/Vol] 13 mmol/L 10 - 2 0 mmol/L [facility] AST [Catalytic activity/Vol] 18 U/L 0 - 45 U/L [facility] Bilirubin [Mass/Vol] 0.2 mg/dL 0 - 1.3 mg/dL [facility] Calcium [Mass/Vol] 8.4 mg/dL 8.4 - 10. 2 mg/dL [facility] Chloride [Moles/Vol] 115 mmol/L High 98 - 10 8 mmol/L [facility] Creatinine [Mass/Vol] 0.64 mg/dL 0.40 - 1.10 [facility] GFR/1.73 sq M predicted among non-blacks MDRD (S/P/Bld) [Vol rate/Area] The eGFR should be used for monitoring renal function only and not for medication dosing. [facility] GFR/1.73 sq M.predicted CKD-EPI (S/P/Bld) [Vol rate/Area] 123 >=60 mL/min/1.73 m2 [facility] Glucose [Mass/Vol] 124 mg/dL High 65 - 99 mg/dL [facility] HCO3 [Moles/Vol] 13 mmol/L Low 21 - 32 mmol/L [facility] Interpretation and review of laboratory results Abnormal [facility] Potassium [Moles/Vol] 3.3 mmol/L Low 3.5 - 5.1 mmol/L [facility] Protein [Mass/Vol] 6.4 g/dL 6 - 8 g/dL [facility] Sodium [Moles/Vol] 138 mmol/L 135 - 145 mmol/L [facility] Urea nitrogen [Mass/Vol] 8 mg/dL 8 - 25 mg/d L [facility] Urea nitrogen/Creatinine [Mass ratio] 12.5 mg/mg [facility] IRON STUDY WITH FERRITINon 1 08-09-2019 Ferritin [Mass/Vol] 56 ng/mL 13 - 150 ng/mL [facility] Interpretation and review of laboratory results Abnormal [facility] Iron [Mass/Vol] 15 ug/dL [facility] binding capacity [Mass/Vol] 254 [facility] Iron saturation [Mass fraction] 6 % Low 20 - 50 % [facility] Magnesium 06-08-2020 Magnesium [Mass/Vol] 1.9 mg/dL 1.6 - 2 .4 mg/dL [facility] Other 06-08-2020 Interpretation and review of laboratory results Abnormal [facility] Interpretation and review of laboratory results Abnormal [facility] Interpretation and review of laboratory results Normal [facility] Interpretation and review of laboratory results Abnormal [facility] POC Glucoseon 06-08-2020 Glucose [Mass/Vol] 384 mg/dL High 65 - 99 mg/dL [facility] Interpretation and review of laboratory results Abnormal [facility] Glucose [Mass/Vol] 344 mg/dL High 65 - 99 mg/dL [facility] Glucose [Mass/Vol] 131 mg/dL High 65 - 99 mg/dL [facility] Interpretation and review of laboratory results Abnormal [facility] Glucose [Mass/Vol] 143 mg/dL High 65 - 99 mg/dL [facility] Interpretation and review of laboratory results Abnormal [facility] Glucose [Mass/Vol] 159 mg/dL High 65 - 99 mg/dL [facility] Interpretation and review of laboratory results Abnormal [facility] Glucose [Mass/Vol] 169 mg/dL High 65 - 99 mg/dL [facility] Interpretation and review of laboratory results Abnormal [facility] Glucose [Mass/Vol] 270 mg/dL High 65 - 99 mg/dL [facility] Interpretation and review of laboratory results Abnormal [facility] Glucose [Mass/Vol] 269 mg/dL High 65 - 99 mg/dL [facility] Interpretation and review of laboratory results Abnormal [facility] Glucose [Mass/Vol] 106 mg/dL High 65 - 99 mg/dL [facility] Interpretation and review of laboratory results Abnormal [facility] Glucose [Mass/Vol] 110 mg/dL High 65 - 99 mg/dL [facility] Interpretation and review of laboratory results Abnormal [facility] Glucose [Mass/Vol] 115 mg/dL High 65 - 99 mg/dL [facility] Interpretation and review of laboratory results Abnormal [facility] Glucose [Mass/Vol] 103 mg/dL High 65 - 99 mg/dL [facility] Interpretation and review of laboratory results Abnormal [facility] Glucose [Mass/Vol] 121 mg/dL High 65 - 99 mg/dL [facility] Interpretation and review of laboratory results Abnormal [facility] Glucose [Mass/Vol] 158 mg/dL High 65 - 99 mg/dL [facility] Interpretation and review of laboratory results Abnormal [facility] Glucose [Mass/Vol] 139 mg/dL High 65 - 99 mg/dL [facility] Interpretation and review of laboratory results Abnormal [facility] Phosphoruson 06-08-2020 Phosphate [Mass/Vol] 1.4 mg/dL Low 2.7 - 4 .5 mg/dL [facility] XR CHEST PA/APon 06-08-2020 XR CHEST PA/AP EXAMINATION: PORTABLE AP UPRIGHT CHEST: 06/08/2020 AT 2032 HOURS. HISTORY: Diminished to absent lung sounds on the right. Low-grade fever. COMPARISON FILMS: None. FINDINGS: Patient is somewhat rotated, lordotic. The visualized osseous structures appear intact. The heart size seems normal. The aorta is normal contour. There is some patchy density [id number] lung on the right without discrete focal consolidating infiltrates. No pleural effusions, pulmonary edema or pneumothorax. IMPRESSION: 1. Questionable patchy vague densities in the right lower lobe distribution which could be a nonspecific finding however atypical bacterial or viral pneumonia would be difficult to exclude. 2. No acute process otherwise or pleural effusions. [email or web address] Workstation ID: [id number] Dictated by: MICHAEL DEE on FriJun 08, 2020 9:43:13 PM EST Transcribed by: MORGAN BROWN on FriJun 08, 2020 9:55:57 PM EST Finalized by: MICHAEL DEE on FriJun 08, 2020 10:02:49 PM EST [facility] Comment on above: Order Comment: Injur y/Trauma [...] normal contour. There is some patchy density [id number] lung on the right without discrete focal consolidating infiltrates. No pleural effusions, pulmonary edema or pneumothorax. [facility] 1. Questionable patchy vague densities in the right lower lobe distribution which could be a nonspecific finding however atypical bacterial or viral pneumonia would be difficult to exclude. 2. No acute process otherwise or pleural effusions. [employer] Workstation ID: [id number] [facility] Interface, Rad In [employer] Speechq - 06/08/2020 10:05 PM EST EXAMINATION: PORTABLE AP UPRIGHT CHEST: 06/08/2020 AT 2032 HOURS. HISTORY: Diminished to absent lung sounds on the right. Low-grade fever. COMPARISON FILMS: None. FINDINGS: Patient is somewhat rotated, lordotic. The visualized osseous structures appear intact. The heart size seems normal. The aorta is normal contour. There is some patchy density [id number] lung on the right without discrete focal consolidating infiltrates. No pleural effusions, pulmonary edema or pneumothorax. IMPRESSION: 1. Questionable patchy vague densities in the right lower lobe distribution which could be a nonspecific finding however atypical bacterial or viral pneumonia would be difficult to exclude. 2. No acute process otherwise or pleural effusions. [employer] Workstation ID: [id number] [facility] Basic Metabolic Panelon 12-0 Anion gap [Moles/Vol] 16 mmol/L 10 - 2 0 mmol/L [facility] Calcium [Mass/Vol] 8.2 mg/dL Low 8.4 - 10. 2 mg/dL [facility] Chloride [Moles/Vol] 114 mmol/L High 98 - 10 8 mmol/L [facility] Creatinine [Mass/Vol] 0.71 mg/dL 0.40 - 1.10 [facility] GFR/1.73 sq M predicted among non-blacks MDRD (S/P/Bld) [Vol rate/Area] The eGFR should be used for monitoring renal function only and not for medication dosing. [facility] GFR/1.73 sq M.predicted CKD-EPI (S/P/Bld) [Vol rate/Area] 117 >=60 mL/min/1.73 m2 [facility] Glucose [Mass/Vol] 172 mg/dL High 65 - 99 mg/dL [facility] HCO3 [Moles/Vol] 10 mmol/L Low 21 - 32 mmol/L [facility] Interpretation and review of laboratory results Abnormal [facility] Potassium [Moles/Vol] 2.8 mmol/L Low 3.5 - 5.1 mmol/L [facility] Sodium [Moles/Vol] 137 mmol/L 135 - 145 mmol/L [facility] Urea nitrogen [Mass/Vol] 7 mg/dL Low 8 - 25 mg/d L [facility] Urea nitrogen/Creatinine [Mass ratio] 9.9 mg/mg Low [facility] Beta-Hydroxybutyrateon 06-07 Beta hydroxybutyrate [Moles/Vol] 1.8 mmol/L High 0 - 0.3 mmol/L [facility] Interpretation and review of laboratory results Abnormal [facility] Beta hydroxybutyrate [Moles/Vol] 5.6 mmol/L High 0 - 0.3 mmol/L [facility] Interpretation and review of laboratory results Abnormal [facility] CBC WITH AUTO DIFFERENTIALon 06-07-2020 Basophils (Bld) [#/Vol] 0.04 10*3/uL [facility] Basophils/100 WBC (Bld) 0.3 % [facility] Eosinophils (Bld) [#/Vol] 0.00 10*3/uL [facility] Eosinophils/100 WBC (Bld) 0.0 % [facility] Erythrocyte distribution width (RBC) [Entitic vol] 13.5 % 11.6 - 14.8 % [facility] Hematocrit (Bld) [Volume fraction] 46.4 % High 36 - 46 % [facility] Hemoglobin (Bld) [Mass/Vol] 14.7 g/dL 12 - 16 g/dL [facility] Immature granulocytes (Bld) [#/Vol] 0.09 10*3/uL [facility] Immature granulocytes/100 WBC (Bld) 0.60 % [facility] Comment on above: The IG parameter is the percentage of metamyelocytes, myelocytes and promyelocytes. An immature granulocyte count (IG) of 1% or more suggests the possibility of infection, an IG count of 3% is very likely related to an infection. Interpretation and review of laboratory results Abnormal [facility] Lymphocytes (Bld) [#/Vol] 1.42 10*3/uL [facility] Lymphocytes/100 WBC (Bld) 9.1 % [facility] MCH (RBC) [Entitic mass] 27.2 pg 26 - 34 pg [facility] MCHC (RBC) [Mass/Vol] 31.7 g/dL 31 - 37 g/dL [facility] MCV (RBC) [Entitic vol] 85.8 fL 80 - 100 fL [facility] Monocytes (Bld) [#/Vol] 0.82 10*3/uL [facility] Monocytes/100 WBC (Bld) 5.3 % [facility] Neutrophils (Bld) [#/Vol] 13.19 10*3/uL High [facility] Neutrophils/100 WBC (Bld) 84.7 % [facility] Nucleated RBC (Bld) [#/Vol] 0.00 10*3/uL [facility] Nucleated RBC/100 WBC (Bld) [Ratio] 0.0 % [facility] Platelet mean volume (Bld) [Entitic vol] 9.5 fL 9.4 - 12.4 fL [facility] Platelets (Bld) [#/Vol] 302 10*3/uL [facility] RBC (Bld) [#/Vol] 5.41 10*6/uL High [facility] WBC (Bld) [#/Vol] 15.56 10*3/uL [facility] Comprehensive Metabolic Pane galileo 06-07-2020 Albumin [Mass/Vol] 3.4 g/dL 3.2 - 5.2 g/dL [facility] ALP [Catalytic activity/Vol] 94 U/L 40 - 140 U/L [facility] ALT [Catalytic activity/Vol] 27 U/L 14 - 65 U/L [facility] Anion gap [Moles/Vol] 22 mmol/L High 10 - 2 0 mmol/L [facility] AST [Catalytic activity/Vol] 27 U/L 0 - 45 U/L [facility] Bilirubin [Mass/Vol] 0.4 mg/dL 0 - 1.3 mg/dL [facility] Calcium [Mass/Vol] 8.0 mg/dL Low 8.4 - 10. 2 mg/dL [facility] Chloride [Moles/Vol] 113 mmol/L High 98 - 10 8 mmol/L [facility] Creatinine [Mass/Vol] 0.73 mg/dL 0.40 - 1.10 [facility] GFR/1.73 sq M predicted among non-blacks MDRD (S/P/Bld) [Vol rate/Area] The eGFR should be used for monitoring renal function only and not for medication dosing. [facility] GFR/1.73 sq M.predicted CKD-EPI (S/P/Bld) [Vol rate/Area] 113 >=60 mL/min/1.73 m2 [facility] Glucose [Mass/Vol] 199 mg/dL High 65 - 99 mg/dL [facility] HCO3 [Moles/Vol] 6 mmol/L Critically low 21 - 32 mmol/L [facility] Interpretation and review of laboratory results Abnormal [facility] Potassium [Moles/Vol] 4.1 mmol/L 3.5 - 5.1 mmol/L [facility] Protein [Mass/Vol] 7.1 g/dL 6 - 8 g/dL [facility] Sodium [Moles/Vol] 137 mmol/L 135 - 145 mmol/L [facility] Urea nitrogen [Mass/Vol] 11 mg/dL 8 - 25 mg/d L [facility] Urea nitrogen/Creatinine [Mass ratio] 15.1 mg/mg [facility] Hemoglobin A1con 06-07-2020 Average glucose Estimated from glycated hemoglobin mass conc (Bld) 464 mg/dL High 74 - 114 mg/dL [facility] HbA1c (Bld) [Mass fraction] 17.8 % High 4.2 - 5.6 % [facility] Interpretation and review of laboratory results Abnormal [facility] Normal: 4.2% - 5.6% Increased risk for diabetes: 5.7% - 6.4% Diabetes: >= 6.5% Pediatrics: No established reference range Estimated average glucose: 74-114 mg/dL [facility] Magnesium Levelon 06-07-2020 Interpretation and review of laboratory results Normal [facility] Magnesium [Mass/Vol] 2.0 mg/dL 1.6 - 2 .4 mg/dL [facility] POC Glucoseon 06-07-2020 Glucose [Mass/Vol] 135 mg/dL High 65 - 99 mg/dL [facility] Interpretation and review of laboratory results Abnormal [facility] Glucose [Mass/Vol] 164 mg/dL High 65 - 99 mg/dL [facility] Interpretation and review of laboratory results Abnormal [facility] Glucose [Mass/Vol] 190 mg/dL High 65 - 99 mg/dL [facility] Interpretation and review of laboratory results Abnormal [facility] Glucose [Mass/Vol] 180 mg/dL High 65 - 99 mg/dL [facility] Interpretation and review of laboratory results Abnormal [facility] Glucose [Mass/Vol] 159 mg/dL High 65 - 99 mg/dL [facility] Interpretation and review of laboratory results Abnormal [facility] Glucose [Mass/Vol] 172 mg/dL High 65 - 99 mg/dL [facility] Interpretation and review of laboratory results Abnormal [facility] Glucose [Mass/Vol] 200 mg/dL High 65 - 99 mg/dL [facility] Interpretation and review of laboratory results Abnormal [facility] Glucose [Mass/Vol] 201 mg/dL High 65 - 99 mg/dL [facility] Interpretation and review of laboratory results Abnormal [facility] Glucose [Mass/Vol] 228 mg/dL High 65 - 99 mg/dL [facility] Interpretation and review of laboratory results Abnormal [facility] Glucose [Mass/Vol] 238 mg/dL High 65 - 99 mg/dL [facility] Interpretation and review of laboratory results Abnormal [facility] Glucose [Mass/Vol] 178 mg/dL High 65 - 99 mg/dL [facility] Interpretation and review of laboratory results Abnormal [facility] Glucose [Mass/Vol] 186 mg/dL High 65 - 99 mg/dL [facility] Interpretation and review of laboratory results Abnormal [facility] Phosphoruson 06-07-2020 Interpretation and review of laboratory results Abnormal [facility] Phosphate [Mass/Vol] 2.0 mg/dL Low 2.7 - 4 .5 mg/dL [facility] TSH with Reflex Free T4on Interpretation and review of laboratory results Normal [facility] TSH Qn 0.66 m[IU]/L [facility] Vital Signs Date Time Vital Sign Value Performing Clinician Facility 04-12-2024 11:36-0400 Body height 172.7 cm Felisa Galloway MD Work Phone: [facility] 04-12-2024 11:36-0400 Body mass index (BMI) [Ratio] 28.89 kg/m2 Felisa Galloway MD Work Phone: [facility] 04-12-2024 11:36-0400 Body weight 86.18 kg Felisa Galloway MD Work Phone: [facility] 04-12-2024 11:36-0400 Diastolic blood pressure 82 mm[Hg] Felisa Galloway MD Work Phone: [facility] 04-12-2024 11:36-0400 Heart rate 99 /min Felisa Galloway MD Work Phone: [facility] 04-12-2024 11:36-0400 Respiratory rate 18 /min Felisa Galloway MD Work Phone: [facility] 04-12-2024 11:36-0400 Systolic blood pressure 128 mm[Hg] Felisa Galloway MD Work Phone: [facility] 04-02-2024 10:43-0400 Body height 175.3 cm Kendal Matthew DPM Work Phone: [facility] 04-02-2024 10:43-0400 Body mass index (BMI) [Ratio] 26.73 kg/m2 Kendal Matthew DPM Work Phone: [facility] 04-02-2024 10:43-0400 Body weight 82.1 kg Kendal Matthew DPM Work Phone: [facility] 07-04-2023 12:00-0500 Body temperature 98.01 [degF] Letty Yee MD Work Phone: [facility] 07-04-2023 12:00-0500 Diastolic blood pressure 78 mm[Hg] Letty Yee MD Work Phone: [facility] 07-04-2023 12:00-0500 Heart rate 102 /min Letty Yee MD Work Phone: [facility] 07-04-2023 12:00-0500 Respiratory rate 14 /min Letty Yee MD Work Phone: [facility] 07-04-2023 12:00-0500 SaO2% (BldA) [Mass fraction] 99 % Letty Yee MD Work Phone: [facility] 07-04-2023 12:00-0500 Systolic blood pressure 130 mm[Hg] Letty Yee MD Work Phone: [facility] 07-04-2023 02:48-0500 Body mass index (BMI) [Ratio] 21.76 kg/m2 Letty Yee MD Work Phone: [facility] 07-04-2023 02:48-0500 Body weight 64.9 kg Letty Yee MD Work Phone: [facility] 07-03-2023 10:34-0500 Body height 172.7 cm Letty Yee MD Work Phone: [facility] 07-02-2023 19:16-0500 SaO2% (BldA) [Mass fraction] 100 % LETTY YEE [facility] Comment on above: Performed By: #### VBG #### [facility] ([id number]) [address] [place] [address] 07-02-2023 17:18-0500 Body temperature 98.6 [degF] Letty Yee MD Work Phone: [facility] 07-02-2023 17:18-0500 SaO2% (BldA) [Mass fraction] 100 % Letty Yee MD Work Phone: [facility] 08-01-2020 19:49-0500 Body Temperature 98.01 [degF] [facility] 08-01-2020 19:49-0500 BP Diastolic 94 mm[Hg] [place], [place] 08-01-2020 19:49-0500 BP Systolic 146 mm[Hg] [place], [place] 08-01-2020 19:49-0500 Pulse (Heart Rate) 59 /min [place], [place] 08-01-2020 19:49-0500 Respiratory Rate 18 /min [facility] 08-01-2020 12:00-0500 Pulse Oximetry 92 % [place], [place] 08-01-2020 06:00-0500 BMI (Body Mass Index) 22.31 kg/m2 [facility] 08-01-2020 06:00-0500 Body weight 58.97 kg [place], [place] 07-29-2020 20:00-0500 Height 162.6 cm [place] 07-29-2020 19:50-0500 Respiratory rate NOT REPORTED [facility] [place] 06-10-2020 15:59-0500 Body Temperature 98.1 [degF] [facility] 06-10-2020 15:59-0500 BP Diastolic 80 mm[Hg] [facility] 06-10-2020 15:59-0500 BP Systolic 115 mm[Hg] [facility] 06-10-2020 15:59-0500 Pulse (Heart Rate) 67 /min [facility] 06-10-2020 15:59-0500 Pulse Oximetry 99 % [facility] 06-10-2020 15:59-0500 Respiratory Rate 16 /min [facility] 06-10-2020 04:39-0500 BMI (Body Mass Index) 20.18 kg/m2 [facility] 06-10-2020 04:39-0500 Body weight 60.2 kg [facility] 06-07-2020 12:31-0500 [facility] Encounter Date Encounter Type Care Provider Facility Start: 04-12-2024 End: 04-12-2024 Bamboo flowsheet Felisa Galloway MD Work Phone: [facility] Start: 04-12-2024 End: 04-12-2024 Bamboo flowsheet Felisa Galloway MD Work Phone: [facility] Start: 04-12-2024 End: 04-12-2024 Office outpatient visit 40 minutes Felisa Galloway MD Work Phone: [facility] Comment on above: Type 1 diabetes nilo itus with hyperglycemia (HCC) (CMS/HCC) (Primary Dx); Insulin long-term use ([facility]/HCC); Insulin pump in place; Encounter for dietary consultation; Encounter for fitting or adjustment of insulin pump Start: 04-12-2024 End: 04-12-2024 ambulatory FELISA GALLOWAY Not Available Start: 04-02-2024 End: 04-02-2024 Bamboo flowsheet Kendal Sommers DPM Work Phone: [facility] Start: 04-02-2024 End: 04-02-2024 Bamboo flowsheet Kendal Sommers DPM Work Phone: [facility] Start: 04-02-2024 End: 04-02-2024 ambulatory KENDAL SOMMERS Not Available Start: 04-02-2024 End: 04-02-2024 Office outpatient new 45 minutes Kendal Sommers DPM Work Phone: [facility] Comment on above: Right foot injury, i nitial encounter (Primary Dx); Closed fracture of base of fifth metatarsal bone of right foot, initial encounter; Type 1 diabetes mellitus with diabetic autonomic (poly)neuropathy (CMS/HCC); Fracture of unspecified metatarsal bone(s), unspecified foot, initial encounter for closed fracture; Right foot pain Start: 04-02-2024 End: 04-02-2024 ambulatory KENDAL SOMMERS Not Available Start: 03-05-2024 ambulatory Tyler Galdamez acility:[facility] Start: 03-02-2024 End: 03-02-2024 Emergency department patient visit [facility] Start: 01-26-2024 End: 01-26-2024 Emergency department patient visit Gustavo Marc Facility:[facility] Start: 11-17-2023 End: 11-17-2023 Emergency department patient visit Mami Sahni Facility:[facility] Start: 10-02-2023 End: 10-02-2023 ambulatory ARCADIO IGLESIAS Not Available Start: 07-30-2023 End: 07-30-2023 ambulatory ANDRESSA ARNDT Facility:[facility] Start: 07-04-2023 End: 07-04-2023 Emergency department patient visit ARCADIO IGLESIAS [facility] Start: 07-03-2023 End: 07-05-2023 Evaluation and management of inpatient CHAS DARDEN [facility] Start: 07-02-2023 End: 07-04-2023 Evaluation and management of inpatient LETTY YEE [facility] Start: 07-02-2023 ambulatory ARCADIO IGLESIAS [facility] Start: 07-02-2023 End: 07-04-2023 Evaluation and management of inpatient Letty Yee MD Work Phone: [facility] Comment on above: Diabetic ketoacidosi s without coma associated with type 1 diabetes mellitus ([facility]-HCC) (Primary Dx); Type 1 diabetes mellitus with ketoacidosis without coma ([facility]-HCC) Start: 06-12-2023 End: 06-13-2023 Evaluation and management of inpatient ARCADIO IGLESIAS Facility:[facility] Start: 05-29-2023 End: 05-30-2023 Emergency department patient visit [facility] Facility:[facility] Start: 03-18-2023 End: 03-20-2023 Evaluation and management of inpatient MARTIN DAVIS [facility] Start: 03-17-2023 End: 03-18-2023 Emergency department patient visit [facility] Facility:[facility] Start: 03-16-2023 End: 03-16-2023 ambulatory Macy Armenta Facility:[facility] Start: 08-25-2022 End: 08-26-[address] ARCADIO IGLESIAS Facility:[facility] Start: 03-18-2022 End: 03-18-[address] ARCADIO IGLESIAS Facility:[facility] Start: 12-26-[address] ARCADIO IGLESIAS Facil ity:[facility] Start: 08-17-2020 End: 08-17-2020 Orders Only Uyen Otto Work Phone: [facility] Start: 07-29-2020 End: 08-02-2020 Evaluation and management of inpatient Naomy Lito Work Phone: [facility] Start: 07-29-2020 End: 07-29-2020 Patient encounter procedure Tamiko [facility] Facility:[facility] Start: 06-07-2020 End: 06-10-2020 Evaluation and management of inpatient PHYSICIAN [facility] Start: 06-07-2020 End: 06-10-2020 Evaluation and management of inpatient Goitom Andom Asgedom Work Phone: [facility] [place] Start: 07-07-2018 End: 07-08-2018 Patient encounter procedure DEFAULT PHYSICIAN Facility:[facility] Procedures Date Procedure Procedure Detail Performing Clinician Start: 04-12-2024 Gluc bld gluc mntr d ev cleared fda spec home use Felisa Galloway MD Work Phone: Start: 04-02-2024 Radex foot complete minimum 3 views Kendal Sommers DPM Work Phone: Start: 07-04-2023 End: 07-04-2023 Electrolyte panel Tim [...] Start: 08-01-2020 Glucose blood reagent strip Naomy Lito Work Phone: Start: 08-01-2020 Assay of magnesium [...] Work Phone: Start: 07-31-2020 Hemoglobin glycosylated a1c Vikkidevora Weber Work Phone: Start: 07-31-2020 Assay of [...] Start: 07-30-2020 End: 07-30-2020 CULTURE, BLOOD 1 Cehla George Work Phone: Start: 07-30-2020 Assay of [...] Blood count complete auto&auto difrntl wbc Chela Nortonthra Work Phone: Start: 07-30-2020 SPECIMEN REJECTION [facility] Work Phone: Start: 07-30-2020 End: 07-30-2020 Glucose blood reagent strip Actifio Work Phone: Start: 07-30-2020 TOX SCR, COMPLETE BL Ve nkat [facility] Work Phone: Start: 07-30-2020 End: 07-30-2020 Glucose blood reagent strip [employer] Work Phone: Start: 07-30-2020 ARTERIAL BLOOD GAS, POC Stan Ana Work Phone: Start: 07-30-2020 Glucose blood reagent strip [employer] Work Phone: Start: 07-30-2020 Assay of acetaminophen Chela Nortonthra Work Phone: Start: 07-30-2020 Assay of ethanol Kritik a George Work Phone: Start: 07-30-2020 Assay of lipase Cheal George Work Phone: Start: 07-30-2020 Assay of [...] Phone: Start: 07-30-2020 TOXIC TRICYCLIC SC,B Kr rubina George Work Phone: Start: 07-30-2020 Glucose blood reagent strip Stan Ana Work Phone: Start: 07-30-2020 ARTERIAL BLOOD GAS, POC Stan Ana Work Phone: Start: 07-30-2020 Gluc bld gluc mntr d ev cleared fda spec home use Stanrosalia Perez Work Phone: Start: 07-30-2020 LACTIC ACID,POINT OF CARE Stan Ana Work Phone: Start: 07-30-2020 End: 07-30-2020 Glucose blood reagent strip Stan Ana Work Phone: Start: 07-30-2020 Assay of magnesium Estebanit calia George Work Phone: Start: 07-30-2020 Assay of phosphorus inorganic Chela Nortonthra Work Phone: Start: 07-30-2020 Basic metabolic pane l calcium total Chela George Work Phone: Start: 07-30-2020 Radiologic exam ches t single view Chela George Work Phone: Start: 07-30-2020 End: 07-30-2020 Glucose blood reagent strip Stan Ana Work Phone: Start: 07-30-2020 Potassium serum plas ma/whole blood Chela George Work Phone: Start: 07-30-2020 End: 07-30-2020 ARTERIAL BLOOD GAS, POC Stan Ana Work Phone: Start: 07-30-2020 End: 07-30-2020 Gluc bld gluc mntr dev cleared fda spec home use Stan Ana Work Phone: Start: 07-30-2020 End: 07-30-2020 LACTIC ACID,POINT OF CARE Stan Ana Work Phone: Start: 07-30-2020 Glucose blood reagent strip Stan Moralesatri Work Phone: Start: 07-29-2020 ANION GAP (CALC) POC Vi nod Ana Work Phone: Start: 07-29-2020 ARTERIAL BLOOD GAS, POC Stan Ana Work Phone: Start: 07-29-2020 Blood count hemoglobin Stan Ana Work Phone: Start: 07-29-2020 CALCIUM, IONIC (POC) Vi nod Ana Work Phone: Start: 07-29-2020 Chloride [Moles/Vol] Vi nod Ana Work Phone: Start: 07-29-2020 CREATININE W/GFR POI NT OF CARE Stan Ana Work Phone: Start: 07-29-2020 Gluc bld gluc mntr d ev cleared fda spec home use Stan Perez Work Phone: Start: 07-29-2020 LACTIC ACID,POINT OF CARE Stan Moralesatri Work Phone: Start: 07-29-2020 Potassium [Moles/Vol] V inod Ana Work Phone: Start: 07-29-2020 Sodium [Moles/Vol] Vino d Ana Work Phone: Start: 07-29-2020 Assay of magnesium Krit ika George Work Phone: Start: 07-29-2020 Assay of phosphorus inorganic Chela George Work Phone: Start: 07-29-2020 Basic metabolic pane l calcium total Chela George Work Phone: Start: 07-29-2020 End: 07-29-2020 Glucose blood reagent strip Stan Ana Work Phone: Start: 07-29-2020 MRSA BY PCR [...] 06-10-2020 Glucose [Mass/volume ] in Blood Cam Michael Wasserman Work Phone: Start: 06-10-2020 Glucose [Mass/volume ] in Blood A.Arcadio Magsombol Nohay Work Phone: Start: 06-10-2020 Glucose [Mass/volume ] in Blood A.Refatouier Magsombol Nohay Work Phone: Start: 06-10-2020 Comprehensive metabo lic 2000 panel - Serum or Plasma A.Arcadio Magsombol Nohay Work Phone: Start: 06-10-2020 Phosphate [Mass/volu me] in Serum or Plasma A.Arcadio Magsombol Nohay Work Phone: Start: 06-09-2020 Glucose [Mass/volume ] in Blood A.Arcadio Felixmbol Nolovey Work Phone: Start: 06-09-2020 Urinalysis Binh Felixmbol Nolovey Work Phone: Start: 06-09-2020 Glucose [Mass/volume ] in Blood A.Arcadio Felixmbol Nolovey Work Phone: Start: 06-09-2020 Potassium [Moles/vol ume] in Serum or Plasma A.Arcadio Perkinsol Nolovey Work Phone: Start: 06-09-2020 Glucose [Mass/volume ] in Blood A.Arcadio Felixmbol Nohay Work Phone: Start: 06-09-2020 Glucose [Mass/volume ] in Blood A.Arcadio Felixmbol Nolovey Work Phone: Start: 06-09-2020 Incentive spirometry A. Arcadio Felixmbol [employer] Work Phone: Start: 06-09-2020 Comprehensive metabo lic 2000 panel - Serum or Plasma Binh Felixmbol Nodavid Work Phone: Start: 06-09-2020 Magnesium [Mass/volu me] in Serum or Plasma A.Arcadio Felixmbol Nolovey Work Phone: Start: 06-09-2020 Phosphate [Mass/volu me] in Serum or Plasma A.Arcadio Pinasombol Nohay Work Phone: Start: 06-09-2020 Complete blood count with white cell differential, automated Favian.Arcadio Pinasombol Nohay Work Phone: Start: 06-09-2020 Complete blood count with white cell differential, manual Favian.Arcadio Pinasombol Nolovey Work Phone: Start: 06-09-2020 Glucose [Mass/volume ] in Blood A.Arcadio Pinasombol Nohay Work Phone: Start: 06-08-2020 Glucose [Mass/volume ] in Blood A.Arcadio Pinasombol Nohay Work Phone: Start: 06-08-2020 Radiologic exam [...] 2000 panel - Serum or Plasma A.Arcadio Magsombol Nohay Work Phone: Start: 06-08-2020 Glucose [Mass/volume ] in Blood A.Arcadio Pinasombol Nohay Work Phone: Start: 06-08-2020 End: 06-08-2020 Glucose [Mass/volume] in Blood A.Arcadio Pinasombol Nohay Work Phone: Start: 06-08-2020 Glucose [Mass/volume ] in Blood Binh Magsombol Nohay Work Phone: Start: 06-08-2020 Beta hydroxybutyrate [Moles/volume] in Serum or Plasma Binh Pinasombol Nohay Work Phone: Start: 06-08-2020 Comprehensive metabo lic 2000 panel - Serum or Plasma Binh Magsombol Nohay Work Phone: Start: 06-08-2020 Iron measurement AReinaldo ferrer Magsombol Nohay Work Phone: Start: 06-08-2020 Glucose [Mass/volume ] in Blood Binh Pinasombol Nohay Work Phone: Start: 06-08-2020 End: 06-08-2020 Glucose [Mass/volume] in Blood ACarrillo Pinasombol Nohay Work Phone: Start: 06-08-2020 Beta hydroxybutyrate [Moles/volume] in Serum or Plasma ACarrillo Pinasombol Nohay Work Phone: Start: 06-08-2020 Complete blood count with white cell differential, automated Binh Pinasombol Nohay Work Phone: Start: 06-08-2020 Complete blood count with white cell differential, manual Binh Pinasombol Nohay Work Phone: Start: 06-08-2020 Comprehensive metabo lic 1999 panel - Serum or Plasma Binh Pinasombol Nohay Work Phone: Start: 06-08-2020 Magnesium [Mass/volu me] in Serum or Plasma Binh Magsombol Nohay Work Phone: Start: 06-08-2020 Phosphate [Mass/volu me] in Serum or Plasma A.Arcadio Magsombol Nohay Work Phone: Start: 06-08-2020 Glucose [Mass/volume ] in Blood A.Arcadio Felixmbol Nolovey Work Phone: Start: 06-08-2020 Glucose [Mass/volume ] in Blood A.Arcadio Felixmbol Nolovey Work Phone: Start: 06-08-2020 End: 06-08-2020 Glucose [Mass/volume] in Blood A.Arcadio Perkinsol Nolovey Work Phone: Start: 06-07-2020 Comprehensive metabo lic 2000 panel - Serum or Plasma A.Arcadio Perkinsol Nolovey Work Phone: Start: 06-07-2020 Glucose [Mass/volume ] in Blood A.Arcadio Perkinsol Nolovey Work Phone: Start: 06-07-2020 End: 06-07-2020 Glucose [Mass/volume] in Blood A.Arcadio Perkinsol Nolovey Work Phone: Start: 06-07-2020 Glucose [Mass/volume ] in Blood A.Arcadio Perkinsol Nolovey Work Phone: Start: 06-07-2020 Basic metabolic 2000 panel - Serum or Plasma A.Arcadio Felixmbol Nolovey Work Phone: Start: 06-07-2020 Beta hydroxybutyrate [Moles/volume] in Serum or Plasma A.Arcadio Felixmbol Nolovey Work Phone: Start: 06-07-2020 Hemoglobin A1c/Hemoglobin.total in Blood A.Arcadio Felixmbol Nohay Work Phone: Start: 06-07-2020 End: 06-07-2020 Glucose [Mass/volume] in Blood A.Arcadio Felixmbol Nohay Work Phone: Start: 06-07-2020 Glucose [Mass/volume ] in Blood A.Arcadio Felixmbol Nohay Work Phone: Start: 06-07-2020 Glucose [Mass/volume ] in Blood A.Arcadio Pinasombol Nodavid Work Phone: Start: 06-07-2020 End: 06-07-2020 Glucose [Mass/volume] in Blood Binh Virk Work Phone: Start: 06-07-2020 Beta hydroxybutyrate [Moles/volume] in Serum or Plasma Binh Virk Work Phone: Start: 06-07-2020 Comprehensive metabo lic 2000 panel - Serum or Plasma Binh Virk Work Phone: Start: 06-07-2020 Magnesium [Mass/volu me] in Serum or Plasma Binh Perkinsol Nodavid Work Phone: Start: 06-07-2020 Phosphate [Mass/volu me] in Serum or Plasma Binh Chandler Nodavid Work Phone: Start: 06-07-2020 Thyrotropin [Units/v olume] in Serum or Plasma by Detection limit <= 0.005 mIU/L Binh Virk Work Phone: Start: 06-07-2020 Glucose [Mass/volume ] in Blood Binh Perkinsol Nodavid Work Phone: Start: 06-07-2020 Complete blood count with white cell differential, automated Binh Perkinsol Nodavid Work Phone: Start: 06-07-2020 Complete blood count with white cell differential, manual Favian.Arcadio Pinasombol Nolovey Work Phone: Start: 06-07-2020 Glucose [Mass/volume ] in Blood Goitom Andom Asgedom Work Phone: Start: 08-05-2018 Microalbumin [Mass/v olume] in Urine by Test strip Goitom Asgedom Plan of Treatment Date Care Activity Detail Author Start: 07-12-2024 End: 07-12-2024 Patient encounter procedure 07/12/2024 11:10 AM EST Office Visit [facility] [address] [place] [address] Felisa Galloway MD [address] [place] [id number] [facility] Start: 05-13-2024 End: 05-13-2024 Patient encounter procedure 05/13/2024 11:00 AM EST Office Visit [facility] [address] [place] [id number] Kendal Sommers, DPM [address] [place] [address] [facility] Start: 04-12-2024 End: 04-12-2025 25-hydroxyvitamin D3 [Mass/volume] in Serum or Plasma Vitamin D 25 hydroxy Total Lab Routine Type 1 diabetes mellitus with hyperglycemia (HCC) ([facility]) Expected: 04/12/2024 (Approximate), Expires: 04/12/[address] [facility] Comment on above: Expected: 04/12/2024 (Approximate), Expi res: 04/12/2025 Start: 04-12-2024 End: 04-12-2025 C-peptide C-peptide Lab Routine Type 1 diabetes mellitus with hyperglycemia (HCC) ([facility]) Expected: 04/12/2024 (Approximate), Expires: 04/12/[address] [facility] Work Phone: Comment on above: Expected: 04/12/2024 (Approximate), Expi res: 04/12/2025 Start: 04-12-2024 End: 04-12-2025 Lipid 1996 panel - Serum or Plasma Lipid panel Lab Routine Type 1 diabetes mellitus with hyperglycemia (HCC) ([facility]/HCC) Expected: 04/12/2024 (Approximate), Expires: 04/12/[address] [facility] Comment on above: Expected: 04/12/2024 (Approximate), Expi res: 04/12/2025 Start: 04-12-2024 End: 04-12-2025 Microalbumin/Creatinine panel in random Urine Microalbumin / creatinine urine ratio Lab Routine Type 1 diabetes mellitus with hyperglycemia (HCC) ([facility]) Expected: 04/12/2024 (Approximate), Expires: 04/12/[address] [facility] Comment on above: Expected: 04/12/2024 (Approximate), Expi res: 04/12/2025 Start: 04-12-2024 End: 04-12-2025 Renal function panel Renal function panel Lab Routine Type 1 diabetes mellitus with hyperglycemia (HCC) [facility] [place] Expected: 04/12/2024 (Approximate), Expires: 04/12/[address] [facility] Comment on above: Expected: 04/12/2024 (Approximate), Expi res: 04/12/2025 Start: 04-12-2024 End: 04-12-2024 Patient encounter procedure [facility] Comment on above: Type 1 diabetes mellitus with hyperglyce justin (HCC) ([facility]) Start: 04-02-2024 End: 04-02-2024 Patient encounter procedure 04/02/2024 11:00 AM EDT Office Visit [facility] [address] [place] [id number] Kendal Sommers, DPM [address] [place], [place] [id number] Fracture of unspecified metatarsal bone(s), unspecified foot, initial encounter for closed fracture [facility] Comment on above: Fracture of unspecified metatarsal bone( s), unspecified foot, initial encounter for closed fracture Start: 02-29-2024 Influenza vaccination Influenza Vaccine (#1) [facility] Start: 12-31-2023 Hemoglobin A1c measurement Diabetes: Hemoglobin A1C [facility] Start: 2023 Screening for malignant neoplasm of cervix [facility] Start: 12-06-2020 HbA1c (Bld) [Mass fraction] A1C [facility] Start: 10-28-2020 HbA1c (Bld) [Mass fraction] A1C test (Diabetic or Prediabetic) [place], [place] Start: 02-29-2020 Influenza vaccination Flu vaccine (#1) [place], [place] Start: 02-29-2020 Influenza vaccination given Sequential Influenza Vaccine (#1) [facility] Start: 08-05-2019 Albumin DL <= 20 mg/L (U) [Mass/Vol] Urine Microalbumin [facility] Start: 08-05-2019 Urine screening for protein Diabetes: Urine Protein Screening [facility] Start: 2014 Screening for malignant neoplasm of cervix [facility] Start: 2012 DTaP/Tdap/Td vaccine (1 - Tdap) DTaP/Tdap/Td vaccine (1 - Tdap) [place], [place] Start: 2011 Diabetic microalbuminuria test Diabetic microalbuminuria test [place], [place] Start: 2011 Hepatitis C antibody, confirmatory test Hepatitis C Screening [facility] Start: 2008 HIV screening [facility] Start: 2005 Adolescent depression screening assessment Depression Screening (PHQ9) [facility] Start: 2003 Diabetic foot examination [facility] Start: 2003 Diabetic retinal exam Diabetic retinal exam [place], [place] Start: 2003 Glaucoma screening Diabetes: Retinopathy Screening [facility] Start: 2003 Lipid panel Lipid screen [place], [place] Start: 2003 Ophthalmic examination and evaluation Ophthalmology Exam [facility] Start: 1996 History and physical examination, annual for health maintenance Wellness Visit [facility] Start: 1994 Varicella vaccine (1 of 2 - 2-dose childhood series) Varicella vaccine (1 of 2 - 2-dose childhood series) [place], [place] Start: 1993 Hepatitis C screening Hepatitis C screen [place], [place] Start: 1993 Screening for malignant neoplasm of cervix Pap Smear [facility] Start: 1993 Tetanus vaccination Tetanus: Every 10yrs [facility] End: 08-05-2020 Basic metabolic 2000 panel Basic Metabolic Panel Lab Timed Every 4 Hours (Lab) for 25 Occurrences starting 08/01/2020 until 08/05/2020, 2 completed [place] Comment on above: Every 4 Hours (Lab) for 25 Occurrences s tarting 08/01/2020 until 08/05/2020, 2 completed CBC WITH AUTO DIFFERENTIAL CBC WITH AUTO DIFFERENTIAL Lab Routine Daily until discontinued starting 08/02/2020 [place] Comment on above: Daily until discontinued starting 2020 [facility] End: 07-30-2020 Drugs of abuse 9 serum w/ reflex Drugs of abuse 9 serum w/ reflex Lab Routine Once for 1 Occurrences starting 07/30/2020 until 07/30/2020 [facility] [place] Comment on above: Once for 1 Occurrences starting 07/30/19 21 until 07/30/2020 Drugs of abuse 9 ser um w/ reflex Drugs of abuse 9 serum w/ reflex Lab Routine 07/30/2020 12:02 PM EST [facility] [place] End: 08-05-2020 Magnesium [Mass/Vol] Magnesium Lab Timed Every 4 Hours (Lab) for 25 Occurrences starting 08/01/2020 until 08/05/2020, 2 completed [facility] [place] Comment on above: Every 4 Hours (Lab) for 25 Occurrences s tarting 08/01/2020 until 08/05/2020, 2 completed End: 07-03-2023 Magnesium [Mass/volume] in Serum or Plasma Magnesium Lab Routine Once for 1 Occurrences starting 07/03/2023 until 07/03/2023 [facility] Work Phone: Comment on above: Once for 1 Occurrences starting 07/03/19 24 until 07/03/2023 Oxygen therapy [[facility] Data Set] Initiate Oxygen Therapy Protocol Respiratory Care Routine Daily until discontinued starting 07/29/2020 [facility] [place] Comment on above: Daily until discontinued starting 2020 End: 08-05-2020 Phosphate [Mass/Vol] Phosphorus Lab Timed Every 4 Hours (Lab) for 25 Occurrences starting 08/01/2020 until 08/05/2020, 2 completed [facility] [place] Comment on above: Every 4 Hours (Lab) for 25 Occurrences s tarting 08/01/2020 until 08/05/2020, 2 completed POCT glucose [facility] [place] Comment on above: 4X Daily (AC & HS) until discontinued st arting 07/31/2020 As Needed until disc ontinued starting 07/31/2020 End: 09-08-2020 POCT Glucose - every hour POCT Glucose - every hour Point of Care Testing Timed Every Hour (Lab) for 980 Occurrences starting 07/30/2020 until 09/08/2020 [facility] Comment on above: Every Hour (Lab) for 980 Occurrences sta rting 07/30/2020 until 09/08/2020 End: 07-30-2020 PREVIOUS SPECIMEN PREVIOUS SPECIMEN Lab Routine Once for 1 Occurrences starting 07/30/2020 until 07/30/2020 [facility] Comment on above: Once for 1 Occurrences starting 07/30/19 21 until 07/30/2020 PREVIOUS SPECIMEN PREVIOUS SPECI MEN Lab Routine 07/30/2020 12:02 PM BARB [facility], COMPLETE BL TOX SCR, CO MPLETE BL Lab Add-On 07/30/2020 10:11 AM BARB [facility] Payers Date Payer Category Payer Medicaid (Managed Care) [employer] [id number] 2023 Unknown [id number] 2015 Medicaid [id number] 2015 Unknown [facility] [employer] [id number] 2015-Present [id number]. [id number] 1993 Unknown [id number] 2.16.840.1.765081.3.579.2. 647 1993 Unknown [id number] 2.16.840.1.905415.3.579.2. 903 1993 Unknown [id number] 2.16.840.1.778505.3.579.2. 593 1993 Unknown [id number] 2.16.840.1.420001.3.579.2. 593 1993 Unknown [id number] 2.16.840.1.608825.3.579.2. 593 1993 Unknown [id number] 2.16.840.1.424702.3.579.2. 593 1993 Unknown [id number] 2.16.840.1.319187.3.579.2. 175 1993 Unknown [id number] 2.16.840.1.300538.3.579.2. 1286 1993 Unknown [id number] 2.16.840.1.023183.3.579.2. 1286 1993 Unknown [id number] 2.16.840.1.125632.3.579.2. 1286 1993 Unknown [id number] 2.16.840.1.058909.3.579.2. 1286 1993 Unknown [id number] 2.16.840.1.725726.3.579.2. 718 1993 Unknown [id number] 2.16.840.1.865419.3.579.2. 718 1993 Unknown [id number] 2.16.840.1.942791.3.579.2. 718 1993 Unknown [id number] 2.16.840.1.277094.3.579.2. 718 1993 Unknown [id number] 2.16.840.1.031010.3.579.2. 718 1993 Unknown [id number] 2.16.840.1.562214.3.579.2. 718 1993 Unknown [id number] 2.16.840.1.405475.3.579.2. 718 1993 Unknown [id number] 2.16.840.1.224163.3.579.2. 1286 1993 Unknown [id number] 2.16.840.1.228595.3.579.2. 1259 1993 Unknown [id number] 2.16.840.1.500840.3.579.2. 1259 1993 Unknown [id number] 2.16.840.1.590412.3.579.2. 1259 1993 Unknown [id number] 2.16.840.1.954259.3.579.2. 1259 1959 Self-pay 1959 Unknown [id number] Unknown Unknown [id number] 2..840.1.934647.3.579.2. 531 Social History Date Type Detail Facility Tobacco smoking stat [facility] Unknown if ever smoked [facility] Start: 1993 Sex Assigned At Not on file [facility] Exposure to SARS-CoV -2 (event) Not sure [facility] Start: 07-03-2023 Tobacco smoking status MAIS Smokes tobacco daily [facility] History of tobacco use Cigarette Smoker P [facility] Start: 07-03-2023 End: 04-02-2024 Cigarettes smoked current (pack per day) - Reported 0.5 [facility] Start: 07-03-2023 Tobacco use and exposure Smokeless tobacco non-user [facility] Start: 07-04-2023 Alcohol intake Current non-drinker of alcohol (finding) [facility] Start: 06-15-2022 End: 04-02-2024 Social connection and isolation panel [facility] Do you belong to any clubs or organizations such as jew groups, unions, fraternal or athletic groups, or school groups? No [facility] Are you now , , , , never or living with a partner? Patient declined [facility] How often to you hav e a drink containing alcohol? Never [facility] Do you feel stress - tense, restless, nervous, or anxious, or unable to sleep at night because your mind is troubled all the time - these days [OSQ] Not at all [facility] Start: 07-03-2023 Tobacco Comment hasn't smoked in 1 week, one cig per day [facility] Start: 03-30-2024 Tobacco smoking status NHIS Ex-smoker [facility] History of tobacco use Current smoker [facility] Start: 1995 Sex assigned at Female [facility] Start: 05-24-2023 Gender identity Identifies as female gender (finding) [facility] Start: 05-24-2023 Sexual orientation Heterosexual (finding) [facility] Goals Date Patient Goal Desired Activity /State Personal health goal Comment on above: Formatting of this n ote might be different from the original. Evaluation of progress towards goal: safe transition from hospital to home with family support. Clinical Notes 05-30-2023 to 04-12-2024 Felisa Galloway MD - 04/12/2024 11:10 AM Roseann Sommers DPM - 04/02/2024 11:00 AM Mikhail Longo PA-C - 07/04/2023 3:47 PM ESTJoseph Dameon Logan MD - 07/04/2023 1:53 PM EST Note Date & Type Note Facility 04-12-2024 History of Present illness Narrative Douglas Cordova is a 28 y.o. female No ref. provider found presents with chief complaint of Diabetes Mellitus and Follow-up HPI: IM : 03/2024 follow up visit on 04/12/2024 A1c 14.1 , bg 99, basal 12 am 1.2, 4 am 1.4, 8 am 1.6, 6 pm 1.5, 10 pm 1.4. ICR 1:5, ISS 1:30. Using insulin pump Omnipod as a basal only, does not use bolus insulin. Was in correction. IM : 10/2021 follow up visit on 11/07/2021 A1c 11.4 , bg 66, basal 12 am 1.2, 4 am 1.4, 8 am 1.6, 6 pm 1.5, 10 pm 1.4. ICR 1:5, ISS 1:30. IM : 09/2021 follow up visit on 10/24/2021 A1c 13 , bg 292, basal 12 am 1.2, 4 am 1.4, 8 am 1.6, 6 pm 1.5, 10 pm 1.4. ICR 1:5, ISS 1:30 IM : 07/2021 follow up visit on 08/13/2021 A1c 10.9, bg 81, basal 12 am 1.2, 4 am 1.4, 8 am 1.6, 6 pm 1.5, 10 pm 1.4. ICR 1:6, ISS 1:40 IM 04/2021 follow up visit on 05/22/2021 A1c 14, bg 491, basal 12 am 1, 4 am 1.2, 8 am 1.3, 6 pm 1.4, 10 pm 1.2. ICR 1:8, ISS 1:40 HPI: 03/2021 New patient sent from Dr. Arcadio Iglesias. A1C in the office is >14. Blood sugar is high. I downloaded her insulin pump and she is 191 average, 549 total daily dose, 43 basal, 57 bolus. She does not check blood sugars. She depends mainly on the. Sometimes with way even up to 200 carbs it sometimes gives her 20 units and even with that the blood sugar is still in the high range. She is not on any other medication for diabetes. She prefers to go to an OmniPod wireless insulin pump. She has two children, 9 and 5 years old, both overweight. SUBJECTIVE: MEDICATIONS: Current Outpatient Medications Medication Instructions albuterol HFA 90 mcg/act inhaler 2 puffs, Inhalation, Every 4 hours PRN carisoprodol (SOMA) 350 mg, Oral, 3 times daily PRN Clobetasol Propionate 0.05 % lotion 1 Application, Topical, 2 times daily escitalopram (LEXAPRO) 5 mg, Oral, Daily gabapentin (Neurontin) 800 MG tablet take 1 tablet by mouth three times a day IN THE MORNING IN THE EVENING and BEFORE BEDTIME guanFACINE (TENEX) 1 mg, Oral, Nightly ibuprofen 800 mg, Oral, 3 times daily PRN Insulin Disposable Pump (Omnipod DASH Pods, Gen 4,) misc USE DIRECTED, REPLACE POD EVERY 72 HOURS Insulin Lispro (HumaLOG) 100 UNIT/ML solution 1 each, Subcutaneous, Continuous insulin regular (HumuLIN R,NovoLIN R) 100 UNIT/ML injection 3 times daily with meals lansoprazole (PREVACID) 30 mg, Daily before breakfast lidocaine (LMX) 4 % cream 1 application , Topical, 4 times daily PRN metoclopramide (REGLAN) 10 mg, Oral, 4 times daily QUEtiapine (SEROQUEL) 25 mg, Oral, Nightly Skin Protectants, Misc. (eucerin) cream Topical, As needed tiZANidine (ZANAFLEX) 4 mg, Oral, 3 times daily ALLERGIES: Allergies Allergen Reactions Penicillins Swelling Throat swells Shellfish-Derived Products Swelling Throat swells Past Medical History: Diagnosis Date Anxiety Asthma (CMS/HCC) Attention deficit disorder (ADD) without hyperactivity Bipolar 1 disorder, mixed ([facility]) Diabetic gastroparesis associated with type 1 diabetes mellitus ([facility]) Dietary counseling and surveillance Encounter for fitting and adjustment of insulin pump Fibromyalgia SANA (generalized anxiety disorder) ([facility]) GERD without esophagitis Insomnia, persistent prison (current) use of insulin ([facility]) Mild intermittent asthma without complication ([facility]) Non-recurrent acute serous otitis media of left ear Opiate use Plaque psoriasis ([facility]) Presence of insulin pump Seasonal allergic rhinitis due to pollen Tobacco user Type 1 diabetes mellitus with diabetic polyneuropathy ([facility]) Type 1 diabetes mellitus with hyperglycemia (HCC) ([facility]) Underweight Vitamin D deficiency Past Surgical History: Procedure Laterality Date SECTION, LOW TRANSVERSE 09/16/2011 SECTION, LOW TRANSVERSE 07/25/2015 CT ANGIOGRAM ABDOMEN PELVIS 06/08/2021 CT ANGIOGRAM ABDOMEN PELVIS 06/08/2021 CT ANGIOGRAM HEART CORONARY 06/08/2021 CT ANGIOGRAM TAVR 06/08/2021 MR ANGIOGRAM HEAD WO IV CONTRAST 07/05/2018 MR ANGIOGRAM HEAD WO IV CONTRAST 07/05/2018 REVIEW OF SYMPTOMS: 14 POINT OF SYSTEM REVIEWED AND NEGATIVE OBJECTIVE: Constitutional: Afebrile @ home; no weakness or night sweats SKIN: No change in skin color; no itching, rash or lesions; no hair loss; HEENT: No HAs or injury; no dizziness; No difficulty with vision; no eye pain, discharge or lesions; no hearing loss or difficulty; no nasal discharge, NECK: No pain, limitation of motion, lumps or swollen glands RESP: No cough, wheezing or difficulty breathing. No CP with breathing; CARDIO: No CP , SOB or fatigue, No edema, palpitations or dyspnea with exertion GI: No N/V/D or abd. pain; good appetite with no recent change. No heart burn, liver or gallbladder disease; no rectal bleeding or pain : No urinary pain , frequency or odor. MUSCULOSKELETAL: No muscle pain or cramps; no extremity weakness.No joint pain, stiffness, swelling or limitation of movement NEUROLOGY: No H/O seizures, stroke or fainting. No weakness, tremors. Hematology: No bleeding problems or excessive bruising ENDOCRINE: No increase in hunger, thirst or urination; admits compliance to medical management plan Feet: numbness tingling , ulcers or skin break Lab Results Component Value Date HGBA1C 14.1 04/12/2024 HGBA1C >16.5 (H) 06/07/2021 HGBA1C >16.5 (H) 11/23/2020 Lab Results Component Value Date GLU 99 04/12/2024 GLU 241 (H) 03/02/2024 GLU 345 (H) 03/02/2024 Visit Vitals BP 128/82 Pulse 99 Resp 18 Ht 5' 8 Wt 190 lb BMI 28.89 kg/m Smoking Status Former BSA 2.03 m ASSESSMENT AND PLAN: Assessment/Plan Diagnoses and all orders for this visit: Type 1 diabetes mellitus with hyperglycemia (HCC) ([facility]) - POCT glucose manually resulted - POCT glycosylated hemoglobin (Hb A1C) docked device - C-peptide; Future - Vitamin D 25 hydroxy Total; Future - Microalbumin / creatinine urine ratio; Future - Lipid panel; Future - Renal function panel; Future We will continue insulin pump as a basal only we will start her Humalog 04/10/15 units according to meal size plus scale 2. Instruction given. Insulin long-term use ([facility]) Insulin pump in place Encounter for dietary consultation Diet and exercise reviewed with the patient Encounter for fitting or adjustment of insulin pump Follow up in about 3 months (around 07/13/2024). documented in this encounter [facility] 04-02-2024 History of Present illness Narrative Images from the original note were not included. Subjective Patient ID: Douglas Cordova is a 28 y.o. 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 Pt relates falling up stairs about 2 weeks ago, did have xrays done with [facility] 03/22/24, states 5th metatarsal fx. Pt relates still having pain, and swelling). HPI Patient presents complaining of right foot pain. She states on 03/18/2024 she fell down steps. She noticed swelling bruising after the injury. She had a difficult time walking. She saw her primary care doctor who ordered x-rays. These are unavailable for my review today. She was told she had a fracture. She has been elevating the area, wearing sandals, limping when walking. She has not tried any icing or anti-inflammatories. She is a type 1 diabetic with neuropathy. Her current hemoglobin A1c is around 9 percent. She states in June her hemoglobin A1c was around 14 percent. Review of Systems Medications Current Outpatient Medications: Insulin Disposable Pump ([employer] DASH Pods, Gen 4,) misc, USE DIRECTED, REPLACE POD EVERY 72 HOURS, Disp: 10 each, Rfl: 11 albuterol HFA 90 mcg/act inhaler, Inhale 2 puffs every 4 (four) hours if needed for wheezing (Patient not taking: Reported on 04/02/2024), Disp: 18 g, Rfl: 2 carisoprodol (Soma) 350 MG tablet, Take 350 mg by mouth 3 (three) times a day as needed for muscle spasms, Disp: , Rfl: Clobetasol Propionate 0.05 % lotion, Apply 1 Application topically in the morning and 1 Application before bedtime., Disp: 118 mL, Rfl: 3 escitalopram (Lexapro) 5 MG tablet, Take 1 tablet (5 mg) by mouth Daily, Disp: 30 tablet, Rfl: 11 gabapentin (Neurontin) 800 MG tablet, take 1 tablet by mouth three times a day IN THE MORNING IN THE EVENING and BEFORE BEDTIME, Disp: 90 tablet, Rfl: 2 guanFACINE (Tenex) 1 MG tablet, Take 1 tablet (1 mg) by mouth at bedtime, Disp: 30 tablet, Rfl: 3 ibuprofen 800 MG tablet, Take 1 tablet (800 mg) by mouth 3 (three) times a day as needed for mild pain (Patient not taking: Reported on 04/02/2024), Disp: 90 tablet, Rfl: 3 Insulin Lispro (HumaLOG) 100 UNIT/ML solution, Inject 1 each under the skin continuously, Disp: 10 mL, Rfl: 3 insulin regular (HumuLIN R,NovoLIN R) 100 UNIT/ML injection, Inject under the skin 3 (three) times a day with meals, Disp: , Rfl: lansoprazole (Prevacid) [address] capsule, Take 30 mg by mouth in the morning. Take before meals. Do not crush or chew.., Disp: , Rfl: lidocaine (LMX) 4 % cream, Apply 1 application topically 4 (four) times a day as needed for mild pain, Disp: 60 g, Rfl: 0 metoclopramide (Reglan) 10 MG tablet, Take 1 tablet (10 mg) by mouth in the morning and 1 tablet (10 mg) at noon and 1 tablet (10 mg) in the evening and 1 tablet (10 mg) before bedtime., Disp: 120 tablet, Rfl: 3 QUEtiapine (SEROquel) 25 MG tablet, Take 1 tablet (25 mg) by mouth at bedtime, Disp: 30 tablet, Rfl: 3 Skin Protectants, Misc. (eucerin) cream, Apply topically if needed for wound care or dry skin, Disp: 454 g, Rfl: 3 tiZANidine (Zanaflex) 4 MG capsule, Take 1 capsule (4 mg) by mouth in the morning and 1 capsule (4 mg) in the evening and 1 capsule (4 mg) before bedtime., Disp: 60 capsule, Rfl: 0 Allergies Penicillins and Shellfish-derived products Past Surgical History Past Surgical History: Procedure Laterality Date SECTION, LOW TRANSVERSE 09/16/2011 SECTION, LOW TRANSVERSE 07/25/2015 CT ANGIOGRAM ABDOMEN PELVIS 06/08/2021 CT ANGIOGRAM ABDOMEN PELVIS 06/08/2021 CT ANGIOGRAM HEART CORONARY 06/08/2021 CT ANGIOGRAM TAVR 06/08/2021 MR ANGIOGRAM HEAD WO IV CONTRAST 07/05/2018 MR ANGIOGRAM HEAD WO IV CONTRAST 07/05/2018 Family History Family History Problem Relation Name Age of Onset Asthma Mother Depression Mother Hypertension Mother Multiple sclerosis Mother No Known Problems Father Objective Physical Exam Cardiovascular: Comments: Pedal pulses: DP 2/4 bilateral, PT 2/4 bilateral. Skin temp is warm to warm. Varicosities: absent Hair growth: present Localized nonpitting edema noted right lateral foot Pulmonary: Effort: Pulmonary effort is normal. Musculoskeletal: General: No tenderness. Right lower leg: No edema. Left lower leg: No edema. Comments: ROM: AJ and STJ ROM are normal and pain free. MUSCLE STRENGTH: 5/5 for dorsiflexion, plantarflexion, inversion, eversion. PAIN: RIGHT: there is pain with palpation at the right base of the 5th metatarsal at the styloid process. There is also pain at the PL/cuboid groove interface. There is pain along the more proximal aspect of the peroneal tendons posterior to the lateral malleolus. There is some tenderness at the ATFL and CFL ligaments. Mild tenderness at the sinus tarsi DEFORMITIES: contracted digits 2 through 5 bilaterally Feet: Comments: Date of last diabetic foot exam: 04/02/2024 Skin: General: Skin is warm. Capillary Refill: Capillary refill takes 2 to 3 seconds. Findings: No bruising or erythema. Comments: SKIN FINDINGS: Webspaces are clean and dry. Skin texture and turgor normal. No ecchymosis. No open wounds Neurological: Mental Status: She is alert and oriented to person, place, and time. Comments: Light touch sensation intact Vibratory sensation: absent IPJ and MPJ, diminished at medial malleolus and patella. [place] Tim monofilament: Absent at 10/10 sites bilateral Pain with tuning fork application to the base of the 5th metatarsal right foot. Psychiatric: Mood and Affect: Mood normal. Behavior: Behavior normal. XR foot 3+ views right Imaging Result: 3 views foot: AP, MO, and lateral of the right foot were taken and show Large complete minimally displaced avulsion fracture noted of the base of the 5th metatarsal. There is a fracture gap of approximately 5 mm noted laterally. No osseous callus present. Assessment/Plan ICD-10-CM 1. Closed fracture of base of fifth metatarsal bone of right foot, initial encounter S92.351A XR foot 3+ views right 2. Right foot injury, initial encounter S99.921A XR foot 3+ views right 3. Type 1 diabetes mellitus with diabetic autonomic (poly)neuropathy (CMS/HCC) E10.43 4. Fracture of unspecified metatarsal bone(s), unspecified foot, initial encounter for closed fracture S92.309A Ambulatory referral to Podiatry 5. Right foot pain M79.959 Reviewed findings of diabetic foot exam with the pt along with diagnosis of peripheral neuropathy and importance of maintaining good control of blood sugars. They are to get into a habit of looking at their feet or have someone look at them. They are to look for any signs of redness, blistering, cracking, swelling, drainage, open lesions etc. They are to refrain from going barefoot. Wear shoes at all times to help protect feet. Shoe gear should be inspected for any foreign objects. Shoes should have a deep wide toe box. With any type of shoe, the feet should be inspected for any signs of pressure, i.e., redness, blistering, or open sores. Reviewed radiographic and clinical findings with the pt. Explained diagnosis of R 5th metatarsal fracture. (Date of injury 03/18/2024). Reviewed that normal bone heals in 4-6 weeks. Discussed that with an increase in her HbA1c, her healing may be delayed. Recommended immobilization in CAM walker. Patient was fitted today for a below knee walking cast, cam walker. At the time of dispensing it was suitable and not substandard. Patient was instructed in the application and removal of this device. It fit well. ABN form discussed, presented, explained and then signed by patient. She was able to ambulate in the cam walker with no pain, wear CAM walker at all times. Encouraged to limit WB activities, rest, ice, elevate. Will return to the office in 6 weeks for recheck and new radiographs. This note was created with the assistance of a speech recognition program. While intending to generate a timely document that accurately reflects the content of the visit, no guarantee can be provided that every grammatical or spelling mistake has been or will be identified or corrected. Thank you for your understanding. Kendal Sommers DPM documented in this encounter [facility] 01-26-2024 Note Education Materials Emergency Medicine Medical Screening Exam A medical screening exam (MSE) helps to determine whether you need immediate medical treatment relating to any number of symptoms you are having. This type of exam may be done in an emergency department, an urgent care setting, or your health care provider's office. Depending on your symptoms and severity, you may need additional tests or medical therapy. It is important to note that an MSE does not necessarily mean that you will need or receive further medical testing or interventions if your symptoms are not deemed to be medically urgent (emergent). Tell a health care provider about: ? Any allergies you have. ? All medicines you are taking, including vitamins, herbs, eye drops, creams, and ejeg-qsv-bcsxtdy medicines. ? Any problems you or family members have had with anesthetic medicines. ? Any bleeding problems you have. ? Any surgeries you have had. ? Any medical conditions you have. ? Whether you are or may be . What happens during the test? During the exam, a health care provider does a short, often focused, physical exam and asks about your medical history to assess: ? Your current symptoms. ? Your overall health. ? Your need for possible further medical intervention. What can I expect after the test? If you have a regular health care provider, make an appointment for a follow-up visit with him or her. If you do not have a regular health care provider, ask about resources in your community. Your medical screening exam may determine that: ? You do not need emergency treatment at this time. ? You need treatment right away. ? You need to be transferred to another medical center. This may happen if you need an emergent specialist or networks computer consultant that is not available at the medical center you are at. ? You need to have more tests. A remote medical coder may be consulted if needed. Get help right away if: ? Your condition gets worse. ? You develop new or troubling symptoms before you see your health care provider. These symptoms may represent a serious problem that is an emergency. Do not wait to see if the symptoms will go away. Get medical help right away. Call your local emergency services (911 in the [place] Do not drive yourself to the hospital. Summary ? A medical screening exam helps to determine whether you need medical treatment right away. This type of exam may be done in an emergency department, an urgent care setting, or your health care provider's office. ? During the exam, a health care provider does a short physical exam and asks about your current symptoms and overall health. ? Depending on the exam, more tests or therapies may be ordered. However, an MSE does not necessarily mean that you will have further medical testing if your symptoms are not deemed to be urgent. ? If you need further care that is not offered at your current medical center, you may need to be transferred to another facility. This information is not intended to replace advice given to you by your health care provider. Make sure you discuss any questions you have with your health care provider. Document Revised: 02/27/2022 Document Reviewed: 10/25/2021 [employer] Patient Education ? 2022 [employer]. [facility] 11-17-2023 Note Education Materials Infectious Disease Cellulitis, Adult Cellulitis is a skin infection. The infected area is often warm, red, swollen, and sore. It occurs most often in the arms and lower legs. It is very important to get treated for this condition. What are the causes? This condition is caused by bacteria. The bacteria enter through a break in the skin, such as a cut, burn, insect bite, open sore, or crack. What increases the risk? This condition is more likely to occur in people who: ? Have a weak body defense system (immune system). ? Have open cuts, mitchell, bites, or scrapes on the skin. ? Are older than 60 years of age. ? Have a blood sugar problem (diabetes). ? Have a long-lasting (chronic) liver disease (cirrhosis) or kidney disease. ? Are very overweight (obese). ? Have a skin problem, such as: ? Itchy rash (eczema). ? Slow movement of blood in the veins (venous stasis). ? Fluid buildup below the skin (edema). ? Have been treated with high-energy rays (radiation). ? Use IV drugs. What are the signs or symptoms? Symptoms of this condition include: ? Skin that is: ? Red. ? Streaking. ? Spotting. ? Swollen. ? Sore or painful when you touch it. ? Warm. ? A fever. ? Chills. ? Blisters. How is this diagnosed? This condition is diagnosed based on: ? Medical history. ? Physical exam. ? Blood tests. ? Imaging tests. How is this treated? Treatment for this condition may include: ? Medicines to treat infections or allergies. ? Home care, such as: ? Rest. ? Placing cold or warm cloths (compresses) on the skin. ? Hospital care, if the condition is very bad. Follow these instructions at home: Medicines ? Take duwd-yfs-kcgexmg and prescription medicines only as told by your doctor. ? If you were prescribed an antibiotic medicine, take it as told by your doctor. Do not stop taking it even if you start to feel better. General instructions ? Drink enough fluid to keep your pee (urine) pale yellow. ? Do not touch or rub the infected area. ? Raise (elevate) the infected area above the level of your heart while you are sitting or lying down. ? Place cold or warm cloths on the area as told by your doctor. ? Keep all follow-up visits as told by your doctor. This is important. Contact a doctor if: ? You have a fever. ? You do not start to get better after 1?2 days of treatment. ? Your bone or joint under the infected area starts to hurt after the skin has healed. ? Your infection comes back. This can happen in the same area or another area. ? You have a swollen bump in the area. ? You have new symptoms. ? You feel ill and have muscle aches and pains. Get help right away if: ? Your symptoms get worse. ? You feel very sleepy. ? You throw up (vomit) or have watery poop (diarrhea) for a long time. ? You see red streaks coming from the area. ? Your red area gets larger. ? Your red area turns dark in color. These symptoms may represent a serious problem that is an emergency. Do not wait to see if the symptoms will go away. Get medical help right away. Call your local emergency services (911 in the [place] Do not drive yourself to the hospital. Summary ? Cellulitis is a skin infection. The area is often warm, red, swollen, and sore. ? This condition is treated with medicines, rest, and cold and warm cloths. ? Take all medicines only as told by your doctor. ? Tell your doctor if symptoms do not start to get better after 1?2 days of treatment. This information is not intended to replace advice given to you by your health care provider. Make sure you discuss any questions you have with your health care provider. Document Revised: 03/27/2022 Document Reviewed: 03/28/2022 [employer] Patient Education ? 2022 [employer]ness. [facility] 07-04-2023 History of Present illness Narrative Images from the original note were not included. [facility] Endocr[facility] [address] [place] [address] Service Pager: Macy Drew MD, Interim Chief MD Catrina Mooney PA-C Alexandrea Vizzaccaro, PA-C Austin Howard, PA-C Aneeba Farooqi, MD, Fellow Stanton Sylvester MD, Fellow NO NEED to PAGE for NEW CONSULTS Page for immediate attention. With this consult we assume full responsibility for diabetes care. Diabetes Management Service Progress Note Patient : Douglas Cordova; 28 y.o. Location: [facility] Admit Date: 07/02/2023 Hospital Day: Hospital Day: [...] 140-180mg/dL in accordance with recommendations from the [place] [employer]. Blood glucoses above 200 mg/dl are [facility] monitored performance measures. ASSESSMENT and PLAN: [...] discharge, at [facility], [address], [place] [address]. Need to call to schedule it: . [...] incarceration. Per chart, patient initially presented to [facility] 07/02 via EMS for altered mental status. [...] I did not find any documentation from group contract analyst follow up. ROS/Subjective/Interval history: Pt was sleepy [...] 7 days Lab Units 07/04/23 02407/03/2340907/02/23 1705 WBC X10E9/L 7.6 12.4* 19.2* HEMOGLOBIN [...] days Lab Units 07/04/23 02407/03/23 04107/02/23 1705 ALBUMIN g/dL 3.0* 3.4 4.0 Last HbA1c: Lab Results Component Value Date HGBA1C 15.5 (H) 07/02/2023 HGBA1C >16.5 (H) 06/07/2021 Catrina Longo PA-C 07/04/23 1916 Images from the original note were not included. Adult ICU Progress Note [facility] - [facility] 28 [facility] 1995 [id number] Date of Admission - 07/02/2023 4:55 PM History of Present Illness Douglas Cordova is a 28 y.o. female with a past medical history of uncontrolled T1DM d/t insulin noncompliance, numerous DKA exacerbations requiring multiple ICU admissions, diabetic neuropathy, psoriasis, adhd, hx of methamphetamine use, recent incarceration. Patient initially presented to [facility] 07/02 via EMS for altered mental status. [...] 250cc/hr. Failed to improve requiring transfer to [facility] for higher acuity care in ICU. Upon [...] 7 days Lab Units 07/04/23 0244 07/03/23 04107/02/23 1705 WBC X10E9/L 7.6 12.4* 19.2* HEMOGLOBIN g/dL 10.4* 10.8* 11.5* HEMATOCRIT % 30.9* 33.7* 36.5 PLATELETS X10E9/L 221 231 261 Results from last 7 days Lab Units 07/04/23 0900 07/04/23 0244 07/03/23 2345 07/03/23 0842 07/03/2340907/02/23 21107/02/23 1705 SODIUM mmol/L 138 141 137 < [...] 7 days Lab Units 07/04/23 0244 07/03/23 04107/02/23 1705 ALBUMIN g/dL 3.0* 3.4 4.0 TOTAL [...] %, 10 mL/hr, Last Rate: 10 mL/hr (07/04/231116) sodium chloride 0.9 %, 10 mL/hr, Last Rate: 10 mL/hr (07/04/231116) As Needed: calcium gluconate OR calcium gluconate [...] progress note was completed using a voice team physician system. Every effort was made to ensure accuracy. However, inadvertent computerized team physician errors may be present. Ronal Logan MD PGY1 IM Resident [facility] 07/04/23 1:53 PM Associated attestation - Letty Yee MD - 07/04/2023 3:59 PM EST I have seen and examined the patient on rounds with the resident/fellow. I repeated the brown components of the exam. I confirm the note and agree with the assessment and plan except as stated below: Letty Yee MD [facility] Images from the original note were not included. Adult ICU Progress Note Patient - Douglas Cordova Age - 28 [facility] 1995 [id number] Date of Admission - 07/02/2023 4:55 PM History of Present Illness Douglas Cordova is a 28 y.o. female with a past medical history of uncontrolled T1DM d/t insulin noncompliance, numerous DKA exacerbations requiring multiple ICU admissions, diabetic neuropathy, psoriasis, adhd, hx of methamphetamine use, recent incarceration. Patient initially presented to [facility] 07/02 via EMS for altered mental status. [...] 250cc/hr. Failed to improve requiring transfer to [facility] for higher acuity care in ICU. Upon [...] 40 mEq/L, 250 mL/hr, Last Rate: Stopped (07/03/23 0946) dextrose 5 % and sodium chloride 0.9 % with KCl 40 mEq/L, 250 mL/hr insulin regular, 0.2-54 Units/hr, Last Rate: Stopped (07/03/23 0940) sodium chloride 0.9 %, 10 mL/hr sodium chloride 0.9 %, 10 mL/hr, Last Rate: 10 mL/hr (07/03/23 0410) sodium chloride 0.9 %, 10 mL/hr, Last Rate: 10 mL/hr (07/03/23 0627) sodium chloride 0.9 % with KCl 40 [...] progress note was completed using a voice team physician system. Every effort was made to ensure accuracy. However, inadvertent computerized team physician errors may be present. Ronal Logan MD PGY1 IM Resident [facility] 07/03/23 9:58 AM Associated attestation - Letty Yee MD - 07/03/2023 9:06 PM EST I have seen and examined the patient on rounds with the resident/fellow. I repeated the brown components of the exam. I confirm the note and agree with the assessment and plan except as stated below: Letty Yee MD [facility] documented in this encounter [facility] 07-04-2023 Progress note Formatting of t his note might be different from the original. Met with patient, introduced self and explained role as psychologist engineering/liaison. Began an interview in order to complete [...] meetings. Patient was born and raised in [place] and is a high school graduate. She is with two children, both of whom live with her parents. 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 She currently lives with friends in [place]. Patient has been linked with [facility] for mental health services in the past. She states she is active with NA meetings. Patient is willing to consider recommendations for additional mental health services. Will monitor, assist in coordinating such services as appropriate. - STEPHANIA Ma 07/04/23 3:53 PM [employer] 07-04-2023 Miscellaneous Notes Met with patient, introduced self and explained role as psychologist engineering/liaison. Began an interview in order to complete [...] meetings. Patient was born and raised in [place] and is a high school graduate. She is with two children, both of whom live with her parents. 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 She currently lives with friends in [place]. Patient has been linked with [facility] for mental health services in the [...] Description: INTERVENTIONS: 1. Encourage patient or legal technical account representative to report early pain and ask [...] per policy 9. Teach patient or legal technical account representative interventions for comforting Outcome: Progressing Note: [...] at the bedside 7. Instruct patient/ patient technical account representative about use of safety devices 8. Include patient/ patient technical account representative in decisions related to safety Outcome: [...] hygiene technique 7. Identify and instruct patient/patient technical account representative in use of appropriate isolation precautions for identified infection/symptoms 8. Provide and discuss with patient/patient technical account representative on educational MDRO sheet 9. Encourage and monitor nutritional status daily and consult environmental services assistant if indicated 10. Implement neutropenic guidelines as needed 11. Review exposure to history of communicable disease and recent travel history on admission 12. Encourage annual influenza vaccine 13. Encourage pneumonia vaccine Outcome: Progressing Note: Evaluation of progress towards goal: Pt receiving antibiotics. Labs drawn and monitored. Sites assessed and reassessed for s/s of infection. Problem: Knowledge Deficit Goal: Patient/patient technical account representative demonstrates understanding of disease process, treatment [...] be free from fall Description: Interventions: 1. [place] to environment 2. Hourly rounds addressing the [...] non-skid footwear 11. Teach patient and patient technical account representative to maintain environment for safety and [...] (cane, walker) within reach 19. Request patient technical account representative bring adaptive equipment/mobility aids from home or obtain and provide as needed 20. Consult pharmacy regarding effects of med's affecting mobility, cognition, and alternatives 21. Obtain physician order for PT if risk factors associated with mobility are present 22. Obtain physician order for OT as appropriate 23. Utilize diversional activities 24. Educate patient and patient technical account representative how to maintain a safe environment during visitation times (notify nurse prior to leaving bedside) 25. Consider appropriateness of medical or non-medical billing manager 26. Set up voiding schedule as appropriate [...] discharge planning process 5. Communicate referral to para educator as appropriate 6. Communicate referral to environmental services assistant as appropriate 7. Collaborate with case management/pediatric social worker for discharge needs Outcome: Progressing [...] supplement as ordered 13. Collaborate with clinical environmental services assistant 14. Include patient/ patient's technical account representative in decisions related to nutrition Outcome: [...] Description: INTERVENTIONS: 1. Encourage patient or legal technical account representative to report early pain and ask [...] per policy 9. Teach patient or legal technical account representative interventions for comforting Outcome: Progressing Note: [...] at the bedside 7. Instruct patient/ patient technical account representative about use of safety devices 8. Include patient/ patient technical account representative in decisions related to safety Outcome: [...] hygiene technique 7. Identify and instruct patient/patient technical account representative in use of appropriate isolation precautions for identified infection/symptoms 8. Provide and discuss with patient/patient technical account representative on educational MDRO sheet 9. Encourage and monitor nutritional status daily and consult environmental services assistant if indicated 10. Implement neutropenic guidelines as needed 11. Review exposure to history of communicable disease and recent travel history on admission 12. Encourage annual influenza vaccine 13. Encourage pneumonia vaccine Outcome: Progressing Note: Evaluation of progress towards goal: Patient is afebrile at present time. Will monitor labs and vital signs. Problem: Knowledge Deficit Goal: Patient/patient technical account representative demonstrates understanding of disease process, treatment [...] be free from fall Description: Interventions: 1. [place] to environment 2. Hourly rounds addressing the [...] non-skid footwear 11. Teach patient and patient technical account representative to maintain environment for safety and [...] (cane, walker) within reach 19. Request patient technical account representative bring adaptive equipment/mobility aids from home or obtain and provide as needed 20. Consult pharmacy regarding effects of med's affecting mobility, cognition, and alternatives 21. Obtain physician order for PT if risk factors associated with mobility are present 22. Obtain physician order for OT as appropriate 23. Utilize diversional activities 24. Educate patient and patient technical account representative how to maintain a safe environment during visitation times (notify nurse prior to leaving bedside) 25. Consider appropriateness of medical or non-medical billing manager 26. Set up voiding schedule as appropriate [...] Description: INTERVENTIONS: 1. Encourage patient or legal technical account representative to report early pain and ask [...] per policy 9. Teach patient or legal technical account representative interventions for comforting Outcome: Progressing Note: [...] at the bedside 7. Instruct patient/ patient technical account representative about use of safety devices 8. Include patient/ patient technical account representative in decisions related to safety Outcome: [...] hygiene technique 7. Identify and instruct patient/patient technical account representative in use of appropriate isolation precautions for identified infection/symptoms 8. Provide and discuss with patient/patient technical account representative on educational MDRO sheet 9. Encourage and monitor nutritional status daily and consult environmental services assistant if indicated 10. Implement neutropenic guidelines as needed 11. Review exposure to history of communicable disease and recent travel history on admission 12. Encourage annual influenza vaccine 13. Encourage pneumonia vaccine Outcome: Progressing Note: Evaluation of progress towards goal: Pt is afebrile at this time. CBC being monitored Problem: Knowledge Deficit Goal: Patient/patient technical account representative demonstrates understanding of disease process, treatment [...] Score of =/> 25 or indicated by [facility] Assessment Goal: Patient should be free from fall Description: Interventions: 1. [place] to environment 2. Hourly rounds addressing the [...] non-skid footwear 11. Teach patient and patient technical account representative to maintain environment for safety and [...] (cane, walker) within reach 19. Request patient technical account representative bring adaptive equipment/mobility aids from home or obtain and provide as needed 20. Consult pharmacy regarding effects of med's affecting mobility, cognition, and alternatives 21. Obtain physician order for PT if risk factors associated with mobility are present 22. Obtain physician order for OT as appropriate 23. Utilize diversional activities 24. Educate patient and patient technical account representative how to maintain a safe environment during visitation times (notify nurse prior to leaving bedside) 25. Consider appropriateness of medical or non-medical billing manager 26. Set up voiding schedule as appropriate [...] discharge planning process 5. Communicate referral to para educator as appropriate 6. Communicate referral to environmental services assistant as appropriate 7. Collaborate with case management/pediatric social worker for discharge needs Outcome: Progressing [...] Description: INTERVENTIONS: 1. Encourage patient or legal technical account representative to report early pain and ask [...] per policy 9. Teach patient or legal technical account representative interventions for comforting Outcome: Progressing Note: [...] at the bedside 7. Instruct patient/ patient technical account representative about use of safety devices 8. Include patient/ patient technical account representative in decisions related to safety Outcome: [...] hygiene technique 7. Identify and instruct patient/patient technical account representative in use of appropriate isolation precautions for identified infection/symptoms 8. Provide and discuss with patient/patient technical account representative on educational MDRO sheet 9. Encourage and monitor nutritional status daily and consult environmental services assistant if indicated 10. Implement neutropenic guidelines as needed 11. Review exposure to history of communicable disease and recent travel history on admission 12. Encourage annual influenza vaccine 13. Encourage pneumonia vaccine Outcome: Progressing Note: Evaluation of progress towards goal: Patient is afebrile at present time. Will monitor labs and vital signs. Problem: Knowledge Deficit Goal: Patient/patient technical account representative demonstrates understanding of disease process, treatment [...] be free from fall Description: Interventions: 1. [place] to environment 2. Hourly rounds addressing the [...] non-skid footwear 11. Teach patient and patient technical account representative to maintain environment for safety and [...] (cane, walker) within reach 19. Request patient technical account representative bring adaptive equipment/mobility aids from home or obtain and provide as needed 20. Consult pharmacy regarding effects of med's affecting mobility, cognition, and alternatives 21. Obtain physician order for PT if risk factors associated with mobility are present 22. Obtain physician order for OT as appropriate 23. Utilize diversional activities 24. Educate patient and patient technical account representative how to maintain a safe environment during visitation times (notify nurse prior to leaving bedside) 25. Consider appropriateness of medical or non-medical billing manager 26. Set up voiding schedule as appropriate [...] with pillow support. documented in this encounter [employer] 07-04-2023 Hospital course Narrative Images from the [...] use, recent incarceration. Patient initially presented to [facility] 07/02 via EMS for altered mental status. [...] 250cc/hr. Failed to improve requiring transfer to [facility] for higher acuity care in ICU. Upon [...] 1-2 weeks of discharge Follow up with group contract analyst within 3 days of discharge No future [...] except as stated below: Letty Yee MD [facility] documented in this encounter [facility] 07-04-2023 Plan of care note Discharge [...] lantus 20 BID Ronal Logan MD PGY-1 [facility] 07-04-2023 Hospital Discharge instructions Ronal Logan MD [...] manage your T1DM. documented in this encounter [facility] 07-04-2023 Plan of care note Problem: Pain Goal: Patient goal is pain score less than 4, able to rest, and participant in treatment plan as appropriate Description: INTERVENTIONS: 1. Encourage patient or legal technical account representative to report early pain and ask [...] per policy 9. Teach patient or legal technical account representative interventions for comforting Outcome: Progressing Note: [...] at the bedside 7. Instruct patient/ patient technical account representative about use of safety devices 8. Include patient/ patient technical account representative in decisions related to safety Outcome: [...] hygiene technique 7. Identify and instruct patient/patient technical account representative in use of appropriate isolation precautions for identified infection/symptoms 8. Provide and discuss with patient/patient technical account representative on educational MDRO sheet 9. Encourage and monitor nutritional status daily and consult environmental services assistant if indicated 10. Implement neutropenic guidelines as needed 11. Review exposure to history of communicable disease and recent travel history on admission 12. Encourage annual influenza vaccine 13. Encourage pneumonia vaccine Outcome: Progressing Note: Evaluation of progress towards goal: Pt receiving antibiotics. Labs drawn and monitored. Sites assessed and reassessed for s/s of infection. Problem: Knowledge Deficit Goal: Patient/patient technical account representative demonstrates understanding of disease process, treatment [...] Score of =/> 25 or indicated by [facility] Assessment Goal: Patient should be free from fall Description: Interventions: 1. [place] to environment 2. Hourly rounds addressing the [...] non-skid footwear 11. Teach patient and patient technical account representative to maintain environment for safety and [...] (cane, walker) within reach 19. Request patient technical account representative bring adaptive equipment/mobility aids from home or obtain and provide as needed 20. Consult pharmacy regarding effects of med's affecting mobility, cognition, and alternatives 21. Obtain physician order for PT if risk factors associated with mobility are present 22. Obtain physician order for OT as appropriate 23. Utilize diversional activities 24. Educate patient and patient technical account representative how to maintain a safe environment during visitation times (notify nurse prior to leaving bedside) 25. Consider appropriateness of medical or non-medical billing manager 26. Set up voiding schedule as appropriate [...] discharge planning process 5. Communicate referral to para educator as appropriate 6. Communicate referral to environmental services assistant as appropriate 7. Collaborate with case management/pediatric social worker for discharge needs Outcome: Progressing [...] supplement as ordered 13. Collaborate with clinical environmental services assistant 14. Include patient/ patient's technical account representative in decisions related to nutrition Outcome: [...] carballo care done prn and per policy. [facility] 07-03-2023 Plan of care note Problem: Pain Goal: Patient goal is pain score less than 4, able to rest, and participant in treatment plan as appropriate Description: INTERVENTIONS: 1. Encourage patient or legal technical account representative to report early pain and ask [...] per policy 9. Teach patient or legal technical account representative interventions for comforting Outcome: Progressing Note: [...] at the bedside 7. Instruct patient/ patient technical account representative about use of safety devices 8. Include patient/ patient technical account representative in decisions related to safety Outcome: [...] hygiene technique 7. Identify and instruct patient/patient technical account representative in use of appropriate isolation precautions for identified infection/symptoms 8. Provide and discuss with patient/patient technical account representative on educational MDRO sheet 9. Encourage and monitor nutritional status daily and consult environmental services assistant if indicated 10. Implement neutropenic guidelines as needed 11. Review exposure to history of communicable disease and recent travel history on admission 12. Encourage annual influenza vaccine 13. Encourage pneumonia vaccine Outcome: Progressing Note: Evaluation of progress towards goal: Patient is afebrile at present time. Will monitor labs and vital signs. Problem: Knowledge Deficit Goal: Patient/patient technical account representative demonstrates understanding of disease process, treatment [...] Score of =/> 25 or indicated by [facility] Assessment Goal: Patient should be free from fall Description: Interventions: 1. [place] to environment 2. Hourly rounds addressing the [...] non-skid footwear 11. Teach patient and patient technical account representative to maintain environment for safety and [...] (cane, walker) within reach 19. Request patient technical account representative bring adaptive equipment/mobility aids from home or obtain and provide as needed 20. Consult pharmacy regarding effects of med's affecting mobility, cognition, and alternatives 21. Obtain physician order for PT if risk factors associated with mobility are present 22. Obtain physician order for OT as appropriate 23. Utilize diversional activities 24. Educate patient and patient technical account representative how to maintain a safe environment during visitation times (notify nurse prior to leaving bedside) 25. Consider appropriateness of medical or non-medical billing manager 26. Set up voiding schedule as appropriate [...] turned every 2 hours with pillow support[facility] Consult note Associated Order (s): IP CONSULT TO ENDOCRINOLOGY Images from the original note were not included. [facility] Academic Endocrinology [facility] [address] [place] [address] Service Pager: Macy Drew MD, Interim Chief [...] 140-180mg/dL in accordance with recommendations from the [place] [employer]. Blood glucoses above 200 mg/dl [...] incarceration. Per chart, patient initially presented to [facility] 07/02 via EMS for altered mental status. [...] I did not find any documentation from group contract analyst follow up. Diabetes History: Duration of Diabetes: [...] Anxiety Asthma Depression Diabetes mellitus type I ([facility]) DM type 1 (diabetes mellitus, type 1) ([facility]) Genital herpes GERD (gastroesophageal reflux disease) Herpes [...] 10 mL, intravenous, Q12H, 10 mL at 07/03/23532 AND sodium chloride 0.9 % flush 10 mL, 10 mL, intravenous, PRN AND sodium chloride 0.9 % flush 20 mL, 20 mL, intravenous, PRN, Ronal Logan MD [COMPLETED] Consult PICC nurse - Midline, , , Once AND sodium chloride 0.9 % flush 20 mL, 20 mL, intravenous, Q12H, 20 mL at 07/03/23532 AND sodium chloride 0.9 % flush 20 [...] >16.5 (H) 06/07/2021 Catrina Longo PA-C 07/03/23 [id number] [facility] 07-03-2023 Consult note Associated Order (s): IP CONSULT TO ENDOCRINOLOGY Images from the original note were not included. [facility] Academic Endocrinology [facility] [address] [place] [address] Service Pager: Macy Drew MD, Interim Chief MD Catrina Mooney PA-C Alexandrea Vizzaccaro, PA-C Austin Howard, PA-C Aneeba Farooqi, MD, Fellow Stanton Sylvester MD, Fellow NO NEED to PAGE for NEW CONSULTS Page for immediate attention. With this consult we assume full responsibility for diabetes care. Diabetes Management Service Consult Note Patient : Douglas Cordova; 28 y.o. Location: A707 Admit Date: 07/02/2023 Hospital Day: Hospital Day: [...] 140-180mg/dL in accordance with recommendations from the [place] [employer]. Blood glucoses above 200 mg/dl are [facility] monitored performance measures. ASSESSMENT and PLAN: [...] incarceration. Per chart, patient initially presented to [facility] 07/02 via EMS for altered mental status. [...] I did not find any documentation from group contract analyst follow up. Diabetes History: Duration of Diabetes: [...] Anxiety Asthma Depression Diabetes mellitus type I ([facility]) DM type 1 (diabetes mellitus, type 1) ([facility]) Genital herpes GERD (gastroesophageal reflux disease) Herpes [...] at 07/03/23 0410, Rate Verify at 07/03/23 0410 sodium chloride 0.9 % infusion, 10 mL/hr, intravenous, Continuous PRN, Ronal Logan MD, Last Rate: 10 mL/hr at 07/03/23 0627, Rate Verify at 07/03/23 0627 Allergies Allergen Reactions Penicillins Anaphylaxis Shellfish Containing [...] >16.5 (H) 06/07/2021 Catrina Longo PA-C 07/03/23 1355 documented in this encounter [facility] 07-03-2023 Plan of care note Problem: Pain Goal: Patient goal is pain score less than 4, able to rest, and participant in treatment plan as appropriate Description: INTERVENTIONS: 1. Encourage patient or legal technical account representative to report early pain and ask [...] per policy 9. Teach patient or legal technical account representative interventions for comforting Outcome: Progressing Note: [...] at the bedside 7. Instruct patient/ patient technical account representative about use of safety devices 8. Include patient/ patient technical account representative in decisions related to safety Outcome: [...] hygiene technique 7. Identify and instruct patient/patient technical account representative in use of appropriate isolation precautions for identified infection/symptoms 8. Provide and discuss with patient/patient technical account representative on educational MDRO sheet 9. Encourage and monitor nutritional status daily and consult environmental services assistant if indicated 10. Implement neutropenic guidelines as needed 11. Review exposure to history of communicable disease and recent travel history on admission 12. Encourage annual influenza vaccine 13. Encourage pneumonia vaccine Outcome: Progressing Note: Evaluation of progress towards goal: Pt is afebrile at this time. CBC being monitored Problem: Knowledge Deficit Goal: Patient/patient technical account representative demonstrates understanding of disease process, treatment [...] Score of =/> 25 or indicated by [facility] Assessment Goal: Patient should be free from fall Description: Interventions: 1. [place] to environment 2. Hourly rounds addressing the [...] non-skid footwear 11. Teach patient and patient technical account representative to maintain environment for safety and [...] (cane, walker) within reach 19. Request patient technical account representative bring adaptive equipment/mobility aids from home or obtain and provide as needed 20. Consult pharmacy regarding effects of med's affecting mobility, cognition, and alternatives 21. Obtain physician order for PT if risk factors associated with mobility are present 22. Obtain physician order for OT as appropriate 23. Utilize diversional activities 24. Educate patient and patient technical account representative how to maintain a safe environment during visitation times (notify nurse prior to leaving bedside) 25. Consider appropriateness of medical or non-medical billing manager 26. Set up voiding schedule as appropriate [...] discharge planning process 5. Communicate referral to para educator as appropriate 6. Communicate referral to environmental services assistant as appropriate 7. Collaborate with case management/pediatric social worker for discharge needs Outcome: Progressing [...] place. Skin is kept clean and dry. [facility] [employer] 07-02-2023 Plan of care note Problem: Pain Goal: Patient goal is pain score less than 4, able to rest, and participant in treatment plan as appropriate Description: INTERVENTIONS: 1. Encourage patient or legal technical account representative to report early pain and ask [...] per policy 9. Teach patient or legal technical account representative interventions for comforting Outcome: Progressing Note: [...] at the bedside 7. Instruct patient/ patient technical account representative about use of safety devices 8. Include patient/ patient technical account representative in decisions related to safety Outcome: [...] hygiene technique 7. Identify and instruct patient/patient technical account representative in use of appropriate isolation precautions for identified infection/symptoms 8. Provide and discuss with patient/patient technical account representative on educational MDRO sheet 9. Encourage and monitor nutritional status daily and consult environmental services assistant if indicated 10. Implement neutropenic guidelines as needed 11. Review exposure to history of communicable disease and recent travel history on admission 12. Encourage annual influenza vaccine 13. Encourage pneumonia vaccine Outcome: Progressing Note: Evaluation of progress towards goal: Patient is afebrile at present time. Will monitor labs and vital signs. Problem: Knowledge Deficit Goal: Patient/patient technical account representative demonstrates understanding of disease process, treatment [...] be free from fall Description: Interventions: 1. [place] to environment 2. Hourly rounds addressing the [...] non-skid footwear 11. Teach patient and patient technical account representative to maintain environment for safety and [...] (cane, walker) within reach 19. Request patient technical account representative bring adaptive equipment/mobility aids from home or obtain and provide as needed 20. Consult pharmacy regarding effects of med's affecting mobility, cognition, and alternatives 21. Obtain physician order for PT if risk factors associated with mobility are present 22. Obtain physician order for OT as appropriate 23. Utilize diversional activities 24. Educate patient and patient technical account representative how to maintain a safe environment during visitation times (notify nurse prior to leaving bedside) 25. Consider appropriateness of medical or non-medical billing manager 26. Set up voiding schedule as appropriate [...] turned every 2 hours with pillow support. [facility] [employer] 07-02-2023 History and physical note Images from the original note were not included. Adult ICU History & Physical Patient - [facility] Cordova Age - 28 [facility] 1995 [id number] Date of Admission - 07/02/2023 4:55 PM Chief Complaint Altered mental status, nausea vomititng, symptomatic hyperglycemia History of Present Illness Douglas Cordova is a 28 y.o. female with a past medical history of uncontrolled T1DM d/t insulin noncompliance, numerous DKA exacerbations requiring multiple ICU admissions, diabetic neuropathy, psoriasis, adhd, hx of methamphetamine use, recent incarceration. Patient initially presented to [facility] 07/02 via EMS for altered mental status. [...] 250cc/hr. Failed to improve requiring transfer to [facility] for higher acuity care in ICU. Upon arrival to [facility] ICU Patient 35.6, HR 101, RR 15 [...] Anxiety Asthma Depression Diabetes mellitus type I ([facility]) DM type 1 (diabetes mellitus, type 1) ([facility]) Genital herpes GERD (gastroesophageal reflux disease) Herpes [...] as needed for nausea or vomiting. 06/18/22 Cem Bhagat APRN-DANIEL pantoprazole (PROTONIX) 20 mg EC tablet Take [...] progress note was completed using a voice team physician system. Every effort was made to ensure accuracy. However, inadvertent computerized team physician errors may be present. Ronal Logan MD PGY1 IM Resident [facility] 07/02/23 5:26 PM Associated attestation - Letty Yee MD - 07/03/2023 9:04 PM EST I have seen and examined the patient on rounds with the resident/fellow. I repeated the brown components of the exam. I confirm the note and agree with the assessment and plan except as stated below: Letty Yee MD [facility] 07-02-2023 History and physical note Images [...] use, recent incarceration. Patient initially presented to [facility] 07/02 via EMS for altered mental status. [...] 250cc/hr. Failed to improve requiring transfer to [facility] for higher acuity care in ICU. Upon arrival to [facility] ICU Patient 35.6, HR 101, RR 15 [...] Anxiety Asthma Depression Diabetes mellitus type I ([facility]) DM type 1 (diabetes mellitus, type 1) ([facility]) Genital herpes GERD (gastroesophageal reflux disease) Herpes [...] as needed for nausea or vomiting. 06/18/22 Cem Bhagat APRN-DANIEL pantoprazole (PROTONIX) 20 mg EC tablet Take [...] progress note was completed using a voice team physician system. Every effort was made to ensure accuracy. However, inadvertent computerized team physician errors may be present. Ronal Logan MD PGY1 IM Resident [facility] 07/02/23 5:26 PM Associated attestation - Letty Yee MD - 07/03/2023 9:04 PM EST I have seen and examined the patient on rounds with the resident/fellow. I repeated the brown components of the exam. I confirm the note and agree with the assessment and plan except as stated below: Letty Yee MD [facility] documented in this encounter [facility] 06-16-2023 Note [phone] [id number] Note Education Materials Endocrinology Hyperglycemia [...] instructions at home: General instructions ? Take [id number] and prescription medicines only as told by [...] have diabetes. Where to find more information [place] [employer]: www.diabetes.org Contact a doctor if: [...] or act (ment (more content not included)... [facility] Evaluation note Diagnosis DKA (diabetic ketoacidosis) ([facility])- Primary Type II or unspecified type diabetes mellitus with ketoacidosis, not stated as uncontrolled Diabetic ketoacidosis without coma associated with type 1 diabetes mellitus ([facility]) Type 1 diabetes mellitus with ketoacidosis without coma ([facility]) [facility] Right [facility], initial encounter- Primary Closed fracture of base of fifth metatarsal bone of right foot, initial encounter Type 1 diabetes mellitus with diabetic autonomic (poly)neuropathy ([facility]) Fracture of unspecified metatarsal bone(s), unspecified foot, initial encounter for closed fracture Right foot pain Pain in soft tissues of limb documented in this encounter [facility]* Diagnosis ADD (attention deficit disorder) without hyperactivity- Primary Attention deficit disorder without mention of hyperactivity Mixed bipolar I disorder ([facility]) Bipolar I disorder, most recent episode (or current) mixed, unspecified Generalized anxiety disorder ([facility]) Generalized anxiety disorder Primary insomnia Persistent disorder of initiating or maintaining sleep Opiate abuse, episodic ([facility]) Diabetic gastroparesis associated with type 1 diabetes mellitus ([facility]) Type 1 diabetes mellitus with polyneuropathy ([facility]) Type I (juvenile type) diabetes mellitus with neurological manifestations, not stated as uncontrolled Type 1 diabetes mellitus with hyperglycemia (HCC) ([facility]) Plaque psoriasis ([facility]) Other psoriasis Type 1 diabetes mellitus with hyperglycemia (HCC) ([facility])- Primary Insulin long-term use ([facility]) Encounter for long-term (current) use of insulin Insulin pump in place Insulin pump status Encounter for dietary consultation Encounter for fitting or adjustment of insulin pump Fitting and adjustment of insulin pump documented in this encounter [facility] Summary Purpose Family History No Family History Records FoundNo Family History Records FoundNo Family History Records FoundNo Family History Records FoundNo Family History Records FoundNo Family History Records FoundNo Family History Records FoundNo Family History Records FoundNo Family History Records FoundNo Family History Records FoundNo Family History Records Found Advance Directives Documents on File Type Date Recorded Patient Hoeing Row Boss Expl anation Advance Directives and Livin g Will 06/07/2020 12:33 PM Latest Code Status on File Code Status Date Activated Date Inactivated Comments Full Code 06/07/2020 11:23 AM 06/10/2020 7:35 PM Full Code 06/07/2020 11:21 AM 06/07/2020 11:23 AM Latest Code Status on File Code Status Date Activated Date Inactivated Comments Full Code 07/29/2020 6:56 PM Documents on File Type Date Recorded Patient Hoeing Row Boss Expl anation Advance Directives and Livin g [...] HOSPITALIST DISCHARGE SUMMARY Patient: Douglas Cordova Account: [id number] Admitted: 06/07/2020 Discharge Date/Time: 06/10/2020 Clinical Summary REASON FOR HOSPITALIZATION/HPI: Douglas Cordova is a 25 y.o. female patient of No primary care provider on file. with history of DM1 presented with hyperglycemia. DIAGNOSES: DKA from [facility], non compliance with her home insulin -DKA pathway initiated. -Resolved -Transition to Lantus, and Humalog -A1c1 7.8 -Patient seen by para educator -Stable for discharge home although her sugars [...] No acute process otherwise or pleural effusions. [employer] Workstation ID: [id number] Procedures No orders of the defined types were placed in this encounter. Consults Procedures Inpatient consult to Reception Specialist Inpatient consult to Dietitian Inpatient consult to Care Management Other Tests No orders of the defined types were placed in this encounter. Allergies Penicillins and Shellfish derived Discharge Diet Diet Special; Diabetic; Carbohydrate Consistent 60g/meal ([id number] kCal equivalent) Disposition Discharge Medications Medication List [...] Medications These medications were [address] [facility] [address] [place] [address] insulin glargine 100 unit/mL injection insulin lispro 100 unit/mL injection Physician(s) Family: Physician No, Phone: None, Address: [facility] Follow Up: PCP Follow up in 3 [...] Diabetic Diet please contact Central Scheduling at [phone] to set up an outpatient appointment with a Registered Dietitian. Please check out [place] [employer] at [email or web address] for more resources. * Attachments The following attachments cannot be sent through Care Everywhere. * Carbohydrates: General Info (Bahraini) * Diabetes: Counting Carbohydrates (B[place]raini) * Low Carbohydrate Foods: General Info ([place]i) * Diabetic Ketoacidosis (DKA) ([place]) documented in this encounter History of Present [...] with hyperglycemia. Impression and Plan: DKA from [facility], non compliance with her home insulin, resolved. Started on DKA pathway on admission with Insulin gtt + IVF Has Insulin pump in the past, was DC because of ?noncompliance She is doing much better, Off Insulin gtt 06/08 BS is >250's Inc Lantus + SS IVF AG is 10 A1c is 17.8 Monitor BMP, lytes. Diet tolerating DC carballo Advised to follow up Atelectasis CXR reviewed IS Pulmo toilet Inc activity HypoPO4 Replacement ordered HypoK [...] frail, cooperative, in no acute distress. - Carballo Cardiovascular: regular rate and rhythm; normal [...] TID AC pantoprazole 40 mg Oral Daily [MAR Hold] potassium chloride SA 40 mEq Oral BID [MAR Hold] sod phos di, mono-K phos mono 500 mg Oral BID sodium chloride (PF) 5 mL Intravenous Q8H KYARA Results/Medications Reviewed 06/09/20 12:10 PM: Results from last 7 days Lab Units 06/09/20 0329 06/08/20195806/08/20 1628 SODIUM mmol/L 137 132* 134* POTASSIUM [...] PM IMAGING: Reviewed 12:10 PM * Liliane Frederick, NEW - 06/09/2020 11:29 AM EST Patient denies [...] with discharge needs and insulin. Dietary and tobacco educator has already been consulted. 0900: Spoke with Shu aBrahona, para educator and she is going in to speak with pt. 1005: Report called to nurse on 2N. 1015: Pt transferred to 2N via wheelchair. * Shannon Parekh - 06/08/2020 2:02 PM EST Spiritual Care Progress Note Completed by: Shannon Parekh Person(s) Present During this Visit: Patient Time Spent in Direct Patient Care: 15 Narrative:I met Allex today for this routine visit. She shared that she is embracing the quiet of the hospital, thankful that family are not able to come from [place], [place] to visit her due to the [...] for Future Visits: Pt aware to contact Scouts as needed, PRN Visit 1-2 times every 7 days or consult Pastoral Care PRN. Rev. Shannon Parekh MDiv. Staff [facility] Contact * Binh Virk MD - 06/08/2020 9:36 AM EST DAILY PROGRESS NOTE Douglas Cordova is a 25 y.o. female patient of No primary care provider on file. with history of DM1 presented with hyperglycemia. Impression and Plan: DKA from [facility], non compliance with her home insulin, [...] much information when asked. [facility] [place] [facility] patient stopped taking her insulin 3 [...] Jin RN - 08/02/2020 12:31 AM EST Acid Retort Operator perfect serve message Internal Medicine to notify primary did elope and leave hospital. Alsonotified patient did leave jewelry in room and will send to security. * Felicity Jin RN - 08/01/2020 10:25 PM EST Acid Retort Operator called Nursing Assembly Operator Pamela to notify patient left unit at 2030 and has not return. Patient did sign policy on patient's remaining of unit form. Also notified patient did state to internal communications writer shewas not leaving AMA. Patient's jewelry still present in room. Pamela states to wait till midnight to remove patient off unit. * Felicity Jin RN - 08/01/2020 8:30 PM EST Patient requested to walk off the unit.. Acid Retort Operator notified patient policy on patients remaining on unit. Patient states she is not leaving AMA and does disregard warnings against leaving the unit. Patient did sign policy on patient's remaining on their unit form and witness by internal communications writer and place in alexander ent's chart. * Damien Olivarez MD - 08/01/2020 7:[address] [facility] Department of Internal Medicine - Staff Internal Medicine Service ICU PATIENT TRANSFER NOTE Patient: Douglas Sousa Date of : 1995 Acct: [id number] Admit date: 07/29/2020 Code Status:- Full code [...] at goal (HCC) [E10.10] and presented to [facility] [place] [facility] with C/O abdominal pain, nausea and vomiting and was found to be in DKA. Patient was started on DKA protocol, on IV fluids and received 1 dose of Rocephin and azithromycin due to elevated white count. Patient was transferred to [facility] for further evaluation and [...] concerning noncompliance, patient might benefit from social media coordinator consult. Depression: History of depression in the past, stopped taking antidepressant by herself. Recommend psych eval. DVT prophylaxis: Lovenox 40 mg. PT/OT/SW: Consulted Discharge planning: chamber of commerce division manager consulted Damien Olivarez MD Department of Internal Medicine [place], [place] 08/01/2020, 7:06 PM Associated attestation - Naomy [...] at home, advised to follow-up with her group contract analyst/PCP Advised to be compliant with medical recommendations Naomy Morse MD Attending Physician, Internal Medicine Service Internal Medicine Residency Program 08/01/2020, 10:21 PM * Vikki Weber MD - 08/01/2020 11:35 AM EST Critical care team - Resident sign-out to medicine service Date and time: 08/01/2020 11:35 AM Patient's name: Douglas Sousa Patient's account/billing number: [id number] Patient's Date of : 1995 Age: 25 [...] floor. Vikki Weber MD Internal Medicine Resident [facility] 08/01/2020 11:35 AM * Edi Latham MD - 08/01/2020 11:29 AM EST Critical Care Team - Daily Progress Note Date and time: 08/01/2020 11:29 AM Patient's name: Douglas Sousa Patient's account/billing number: [id number] Patient's Date of : 1995 Age: 25 [...] Date 08/01/20 0000 - 08/01/20 2359 Shift 6021-8159 0408-7120 7099-9148 24 Hour Total INTAKE P.O.(mL/kg/hr) 400(0.8) 500 [...] HCO3 12.9 Lab Results Component Value Date FNC4QMA 14 07/30/2020 FIO2 35.0 07/30/2020 Lactic Acid: [...] No results for input(s): LABIRON, TIBC, FERRITIN, [id number], FOLATE, OCCULTBLD in the last 72 hours. [...] access Vikki Weber MD Internal Medicine Resident [facility] 08/01/2020 11:34 AM Attending Physician Statement [...] this chart was generated using voice recognition [employer] dictation software. Although every effort was made to ensure the accuracy of this automated team physician, some errors in team physician may have occurred. * Edi Latham MD - 07/31/2020 8:37 AM EST Critical Care Team - Daily Progress Note Date and time: 07/31/2020 8:43 AM Patient's name: Douglas Sousa Patient's account/billing number: [id number] Patient's Date of : 1995 Age: 25 [...] Date 07/31/20 0000 - 07/31/20 2359 Shift [id number] [phone] 24 Hour Total INTAKE I.V.(mL/kg) 1058(18.5) 1062.4(18.6) [...] HCO3 12.9 Lab Results Component Value Date IVI6CPR 14 07/30/2020 FIO2 35.0 07/30/2020 Lactic Acid: [...] No results for input(s): LABIRON, TIBC, FERRITIN, [id number], FOLATE, OCCULTBLD in the last 72 hours. [...] M.D. Department of Internal Medicine/ Critical care [place]) 07/31/2020, 8:43 AM [...] this chart was generated using voice recognition [employer] dictation software. Although every effort was made to ensure the accuracy of this automated team physician, some errors in team physician may have occurred. * Chela Vazquez MD - 07/30/2020 9:09 AM EST Critical Care Team - Daily Progress Note Date and time: 07/30/2020 9:09 AM Patient's name: Douglas Sousa Patient's account/billing number: [id number] Patient's Date of : 1995 Age: 25 [...] Date 07/30/20 0000 - 07/30/20 2359 Shift 1939-5609 [phone] 24 Hour Total INTAKE I.V.(mL/kg) 2655(49.6) 2655(49.6) [...] HCO3 12.9 Lab Results Component Value Date UYU1KZF 14 07/30/2020 FIO2 35.0 07/30/2020 Lactic Acid: No results found for: LACTA DATA: Complete Blood Count: Recent Labs 07/29/20 1918 WBC 28.5* HGB 14.0 MCV 84.6 PLT [...] PHOS 2.9 07/29/2020 S. Calcium: Recent Labs 07/30/20 0635 CALCIUM 7.2* S. Ionized Calcium:No results for [...] No results for input(s): LABIRON, TIBC, FERRITIN, [id number], FOLATE, OCCULTBLD in the last 72 hours. [...] M.D. Department of Internal Medicine/ Critical care [facility]) 07/30/2020, 9:09 AM Associated attestation - Stan [...] Pulmonary and Critical Care Medicine * Sadie Ramirez, NEW - 07/30/2020 8:16 AM EST Patient constantly pulling off bipap and is difficult to redirect. Bilateral mittens applied per order from Dr. Vazquez. documented in this encounter Assessments Diagnosis DKA, type 1, not at goal (HCC)- Primary Diagnosis DKA, type 1, not at goal ([facility]) Type I (juvenile type) diabetes mellitus with ketoacidosis, uncontrolled Reason for Referral Specialty Diagnoses / Procedures Referred By Contac t Referred To Contact Procedures Discharge Follow-Up Ronal Logan MD [address] [place] [address] Referral ID Status Reason Start Date Expiration Date V isits Requested Visits Authorized [id number] Pending Review 07/04/2023 07/03/2024 1 1 Specialty Diagnoses / Procedures Referred By Contac t Referred To Contact Diagnoses Diabetic ketoacidosis without coma associated with type 1 diabetes mellitus ([facility]) Procedures Follow-up with primary care provider Ronal Logan MD [address] [place] [address] Referral ID Status Reason Start Date Expiration Date V isits Requested Visits Authorized [id number] Pending Review 07/04/2023 07/03/2024 1 1 Specialty Diagnoses / Procedures Referred By Contac t Referred To Contact Procedures No dressing needed Ronal Logan MD [address] [place] [address] Referral ID Status Reason Start Date Expiration Date V isits Requested Visits Authorized [id number] Pending Review 07/04/2023 07/03/2024 1 1 Specialty Diagnoses / Procedures Referred By Contac t Referred To Contact Procedures Adult diet Ronal Logan MD [address] [place] [address] Referral ID Status Reason Start Date Expiration Date V isits Requested Visits Authorized [id number] Pending Review 07/04/2023 07/03/2024 1 1 Additional Source Comments INFORMATION SOURCE (unrecogn ized section and content) DATE CREATED AUTHOR 07/08/2018 [facility] DATE CREATED AUTHOR AUTHOR'S ORGANIZ ATION 06/14/2020 [facility] DATE CREATED AUTHOR AUTHOR'S ORGANIZ ATION 08/02/2020 [facility] DATE CREATED AUTHOR AUTHOR'S ORGANIZ ATION 09/18/2022 [facility] DATE CREATED AUTHOR AUTHOR'S ORGANIZ ATION 04/02/2023 [facility] DATE CREATED AUTHOR AUTHOR'S ORGANIZ ATION 07/06/2023 [facility] DATE CREATED AUTHOR AUTHOR'S ORGANIZ ATION 07/13/2023 [facility] DATE CREATED AUTHOR AUTHOR'S ORGANIZ ATION 02/08/2024 [facility] DATE CREATED AUTHOR AUTHOR'S ORGANIZ ATION 03/03/2024 [facility] DATE CREATED AUTHOR AUTHOR'S ORGANIZ ATION 03/07/2024 [facility] DATE CREATED AUTHOR AUTHOR'S ORGANIZ ATION 04/13/2024 [facility] EPIC Reason for Visit (unrecogniz ed section and content) Status Reason Specialty Diagnoses / Procedures Referre d By Contact Referred To Contact Diagnoses DKA, type 1, not at goal ([facility]) DKA Status Reason Specialty Diagnoses / Procedures Referre d By Contact Referred To Contact Diagnoses DKA, type 1, not at goal ([facility]) DKA Stan Perez MD [address] [address] [facility] Specialty Diagnoses / Procedures Referred By Contac t Referred To Contact Diagnoses DKA (diabetic ketoacidosis) ([facility]) Tachycardia 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 Pt relates falling up stairs about 2 weeks ago, did have xrays done with [facility] 9/23/24, states 5th metatarsal fx. Pt relates still having pain, and swelling Specialty Diagnoses / Procedures Referred By Chavez t Referred To Contact Podiatry Diagnoses Fracture of unspecified metatarsal bone(s), unspecified foot, initial encounter for closed fracture 5th metatarsal fx Procedures [place] OFFICE/OUTPATIENT NEW HIGH MDM 60 MINUTES Mely Ruvalcaba, TAWNY [address] [place] [address] Kendal Sommers, DPM [address] [place] [address] Referral ID Status Reason Start Date Expiration Date V isits Requested Visits Authorized [id number] Closed Specialty Services Required 03/29/2024 09/25/2024 1 1 Reason Comments Diabetes Mellitus Follow-up Binh Virk MD - 06/07/2020 11:16 AM EST H&P Notes (unrecognized sect ion and content) Hospitalist History and Physical Patient Name: Douglas Cordova : 1995 MR #: [id number] Admit Date: Physicians: No primary care provider on file. (Family); System, Provider Not In (Referring) Perpetual Assessment: Douglas Cordova is a 25 y.o. female patient of No primary care provider on file. with history of DM1 presented with hyperglycemia. Impression and Plan: DKA from [facility], non compliance with her home insulin On Insulin gtt prior to arrival DKA pathway. Cont Insulin gtt + IVF A1c Monitor wood GIRON. Hydroxybuterate Microcytosis Will check iron level. Underweight/ cachexia Encourage to eat once tolerated Gastroenteritis, resolved. Chief Complaint: DKA History of Present Illness: Douglas Cordova is a 25 y.o. female patient admitted to hospitalist service on 06/07/2020 with DKA. Patient is not a good historian or does not offer much information when asked. [facility] [place] [facility] patient stopped taking her insulin 3 [...] Laboratory and Additional Data Reviewed: Results/Medications Reviewed 06/07/20 11:16 AM: Invalid input(s): CO2 Invalid input(s): [...] Cordova Date of : 1995 Sex: Female Boxing And Pressing Supervisor f2f with patient. Patient reports she is linked with an group contract analyst and a primary care physician. She will speak with them about changing insulin if needed. Boxing And Pressing Supervisor did speak with patient about ride home, explained she can have ambulette transportation but has to have discharge orders in. Patient denied other needs. Associated Order(s): IP CONSULT TO STOCK ASSOCIATE Reviewed lab results: Blood sugar trends: 103-517 [...] take care of her. 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 Medications: Levemir 12 units [...] She states she has an appointment in [facility]. 2. Patient verbalizes that she will [...] type 1. Pt found in DKA from [facility] d/t non-compliance with her home insulin, [...] 0.9 % Lisa Moore RD, LD Office: [phone] documented in this encounter Plan of Adelaida Velarde RN - 06/08/2020 9:17 PM ESTQuick Note - Kendal Jordan TECHNOLOGIST - 06/08/2020 8:52 PM ESTPlan of Adelaida Velarde RN - 06/08/2020 2:35 AM EST Miscellaneous Notes (unrecog nized section and content) Problem: Actual or potential alteration in health Goal: Absence of healthcare acquired conditions Outcome: Partially Met Goal: Knowledge of Interdisciplinary Plan of Care Outcome: Partially Met Goal: Knowledge of Enviroment Outcome: Partially Met [id number] goggles gloves Pt not wearing a [...] Units (COMPLETED) 10 Units, subcutaneous, Once, On Ailin 07/03/23 at 0845, For 1 dose, Look-alike/sound-alike medication - verify indication for use. Prime with 2 units of insulin prior to administration. Basal (long acting) insulin for subcutaneous administration only. Do not mix with any other insulin. Pre-filled pens stable 28 days at room temperature. 0945 (Given - Provider: Anurag Shipman RN - Comment: bs 149, order placed by PA group contract analyst) insulin glargine (LANTUS, SEMGLEE) injection pen 20 [...] hours, First dose (after last modification) on Fri07/03/23 at 0530, PICC line. Administer 10 mL per lumen; 10 mL total (for single lumen flush) 0533 (Given - Provider: Evelyn Rhodes RN)1632 (Given - Provider: Anurag Shipman, NEW) 0453 (Given - Provider: Evelyn Rhodes RN) [...] Attila Munguia RN)0900 (Paused - Provider: Félix Hamlin RN)0902 (Restarted - Provider: Félix Hamlin RN)1052 (Stop Bag - Provider: Félix Hamlin RN) Continuous Medication Order 07/02/2023 07/03/2023 07/04/2023 D5 [...] - Reason: Other - Comment: per Dr. Darden finish prn potassium replacement (50 MEQ) before starting [...] RN)1036 (New Bag - Provider: Félix Hamlin, RN)1117 (Stop Bag - Provider: Félix Hamlin RN) [...] Comment: insulin drip paused, K 3.0, per MD stop fluids as well, BS 149) insulin [...] RN)2106 (Rate/Dose Change - Provider: Evelyn Rhodes RN)210 (New Bag - Provider: Evelyn Rhodes RN)2200 (Rate/Dose Change - Provider: Evelyn Rhodes RN)2300 [...] Anurag Shipman RN)0833 (Paused - Provider: Anurag Shipamn RN)0835 (Restarted - Provider: Anurag Shipman RN)0940 [...] (RED) 1027 (See Alternative - Provider: Anurag Shipman, NEW)1127 (See Alternative - Provider: Anurag Shipman, NEW) dextrose (GLUTOSE) 40 % gel 15 g [...] to dextrose-containing formulation, DO NOT change to onf-rxjkbrla-konfrrdazw IV fluid if blood glucose exceeds 250 [...] magnesium unavailable) level 4 hours after infusion. 1949 (New Bag - Provider: Evelyn Rhodes RN)2149 (Stop Bag - Provider: Evelyn Rhodes RN) 035 (See Alternative - Provider: Evelyn Rhodes RN)0526 [...] magnesium unavailable) level 4 hours after infusion. 1949 (See Alternative - Provider: Evelyn Rhodes RN)2149 (See Alternative - Provider: Evelyn Rhodes RN) 035 (New Bag - Provider: Evelyn Rhodes RN)0526 (Rate/Dose Verify - Provider: Evelyn Rhodes RN)0706 (Rate/Dose Verify - Provider: Attila Munguia RN)0759 (Stop Bag - Provider: Félix Hamlin, NEW) potassium chloride (K-TAB,KLOR-CON) CR tablet 20-50 mEq(Linked [...] or chew. 2140 (Given - Provider: Evelyn Rhodes, NEW) 1576 (Given - Provider: Evelyn Rhodes RN) potassium [...] after per policy and monitor potassium levels 2140 (See Alternative - Provider: Evelyn Rhodes RN) 0356 (See Alternative - Provider: Evelyn Rhodes RN) potassium chloride IVPB 10 mEq/100 mL in [...] Rhodes RN)0238 (See Alternative - Provider: Evelyn Rhodes, NEW)0338 (See Alternative - Provider: Evelyn Rhodes, NEW)0532 (See Alternative - Provider: Evelyn Rhodes RN)0536 (See Alternative - Provider: Evelyn Rhodes RN)0544 (See Alternative - Provider: Evelyn Rhodes RN)0627 (See Alternative - Provider: Evelyn Rhodes RN)0632 (See Alternative - Provider: Evelyn Rhodes RN)0636 (See Alternative - Provider: Evelyn Rhodes RN)0736 (See Alternative - Provider: Anurag Shipman RN)0829 (See Alternative - Provider: Anurag Shipman RN)0833 (See Alternative - Provider: Anurag Shipman, RN)0836 (See Alternative - Provider: Anurag Shipman, RN)0929 (See Alternative - Provider: Anurag Shipman RN)1004 (See Alternative - Provider: Anurag Shipman RN)1034 (See Alternative - Provider: Anurag Shipman RN)1034 (See Alternative - Provider: Anurag Shipman, RN)1104 (See Alternative - Provider: Anurag Shipman RN)1112 (See Alternative - Provider: Anurag Shipman, RN)1142 (See Alternative - Provider: Anurag Shipman RN)1153 (See Alternative - Provider: Anurag Shipman RN)1223 (See Alternative - Provider: Anurag Shipman, RN)1223 (See Alternative - Provider: Anurag Shipman, RN)1253 (See Alternative - Provider: Anurag Shipman RN)1520 (See Alternative - Provider: Anurag Shipman RN)1550 (See Alternative - Provider: Anurag Shipman, RN)1556 (See Alternative - Provider: Anurag Shipman, RN)1626 (See Alternative - Provider: Anurag Shipman RN)1635 (See Alternative - Provider: Anurag Shipman, RN)1705 (See Alternative - Provider: Anurag Shipman, RN) potassium chloride IVPB 10 mEq/50 mL [...] Comment: k 3.0, infusing through PICC, MD GRIJALVA)1034 (Stop Bag - Provider: Anurag Shipman RN)1034 [...] RN - Comment: MD approved, through PICC line)1550 (Stop Bag - Provider: Anurag Shipman RN)1556 (New Bag - Provider: Anurag Shipman RN - Comment: MD approved, through PICC line)1626 (Stop Bag - Provider: Anurag Shipman RN)1635 (New Bag - Provider: Anurag Shipman RN - Comment: md approved, picc line)1705 (Stop Bag - Provider: Anurag Shipman RN) prochlorperazine (COMPAZINE) injection 5 mg 5 mg, intravenous, Every 6 hours PRN, nausea, vomiting, Starting on Fri07/03/23 at 1239, When administered via IV Push, [...] #2 2314 (New Bag - Provider: Evelyn Rhodes, RN) 0108 (Rate/Dose Verify - Provider: Evelyn Rhodes RN)0234 (Rate/Dose Verify - Provider: Evelyn Rhodes RN)0338 (Rate/Dose Verify - Provider: Evelyn Rhodes RN)0410 (Rate/Dose Verify - Provider: Evelyn Rhodes RN)0632 (Rate/Dose Verify - Provider: Anurag Shipman RN)0636 (Paused - Provider: Anurag Shipman, RN)0736 (Restarted - Provider: Anurag Shipman, RN)0824 (Paused - Provider: Anurag Shipman, RN)0824 (Paused - Provider: Anurag Shipman, RN)0827 (Restarted - Provider: Anurag Shipman, RN)0829 (Paused - Provider: Anurag Shipman, RN)0932 (Restarted - Provider: Anurag Shipman, RN)1004 (Paused - Provider: Anurag Shipman, RN)1033 [...] Anurag Shipman, RN)1628 (Restarted - Provider: Anurag Shipman RN)1635 (Paused - Provider: Anurag Shipman RN)1710 (Restarted - Provider: Anurag Shipman RN)1828 (Rate/Dose [...] Félix Hamlin RN)0900 (Paused - Provider: Félix Hamlin, RN)0902 (Restarted - Provider: Félix Hamlin, RN)0917 (Rate/Dose Verify - Provider: Félix Hamlin RN)0920 (Rate/Dose Verify - Provider: Félix Hamlin, RN)1117 (Rate/Dose Verify - Provider: Félix Hamlin [...] Anurag Shipman RN)1550 (Paused - Provider: Anurag Shipman RN)1553 (Restarted - Provider: Anurag Shipman RN)1554 (Stop Bag - Provider: Anurag Shipman RN)2200 (See Alternative - Provider: Evelyn Rhodes, NEW) sodium phosphate 20 mmol in sodium chloride [...] RN)1550 (See Alternative - Provider: Anurag Shipman, NEW)1553 (See Alternative - Provider: Anurag Shipman, RN)1554 (See Alternative - Provider: Anurag Shipman [...] intravenous, As needed, line care, Starting on 07/02/23 at 1816, PICC line. Administer 10 mL to each lumen before and after each use. Administer 10 mL per lumen; 10 mL total (for single lumen flush) And sodium chloride 0.9 % flush 20 mLJump to med 20 mL, intravenous, As needed, line care, Starting on 07/02/23 at 1816, PICC line. Administer 20 mL [...] intravenous, Every 12 hours, First dose on 07/02/23 at 1830, PICC line. 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 Relationship Specialty Start Date End Date Arcadio Iglesias MD [address] [place], [place] [id number] PCP - General Family Medicine 06/10/23 Water Treatment Plant Mechanic Relationship Specialty Start Date End Date Macy Traylor MD [address] [place], [place] [address] [place] [address] PCP - General Family Medicine 03/30/24 Water Treatment Plant Mechanic Relationship Specialty Start Date End Date Macy Traylor MD [address] [place] [address], [address] [place] [address] PCP - General Family Medicine 03/30/24 Water Treatment Plant Mechanic Relationship Specialty Start Date End Date Macy Traylor MD [address] [place] [address], [address] [place] [address] PCP - General Family Medicine 03/30/24 Water Treatment Plant Mechanic Relationship Specialty Start Date End Date Macy Traylor MD [address] [place] [address], [address] [place] [address] PCP - General Family Medicine 03/30/24 FOR RECORDS PERTAINING TO PATIENTS WHO ARE [...] BE BASED ON THE PRIMARY CLINICAL RECORDS. [facility] [facility]. provides no warranty or guarantee of the accuracy or completeness of information in this document.
[2024-05-27 08:54] LABS: Anion Gap 37.8; BUN Creatinine Ratio 17.8; Calcium 8.7 mg/dL (8.5-10.1); Carbon Dioxide 6.7 mmol/L (21.0-32.0); Chloride 101 mmol/L (98-107); Estimated GFR (African America 59 (>=60 mL/min/1.73m^2); Estimated GFR (Non-African Ame 49 (>=60 mL/min/1.73m^2); Glucose 434 mg/dL (74-106); HCG Qualitative NEGATIVE (NEGATIVE); Potassium 4.5 mmol/L (3.5-5.1); Sodium 141 mmol/L (136-145)
[2024-05-27 08:55] LABS: Internal Control Within Normal Limits
[2024-05-27] MEDS: 0.9 % SODIUM CHLORIDE 1,000 ML 1000 ML IV (08:58)
[2024-05-27] MEDS: ONDANSETRON PF 4 MG/2 ML VIAL IV ×2 (08:58→09:17)
[2024-05-27] MEDS: INSULIN REGULAR, HUMAN (100 UNIT/ML) 10 ML MDV 10 UNIT IV (09:05)
[2024-05-27 09:10] LABS: Acetone SMALL (NEGATIVE)
[2024-05-27 09:14] LABS: Basophils Abs Manual 0.25 10^3/uL (0.00-0.10); Lymphocytes Absolute Manual 1.02 10^3/uL (1.20-3.80); Monocytes Absolute Manual 0.51 10^3/uL (0.30-0.80); Segmented Neut Absolute Manual 22.69 10^3/uL (1.4-6.5)
[2024-05-27 09:15] LABS: Anisocytosis 1+; Ovalocytes 1+
[2024-05-27] MEDS: INSULIN REGULAR IN 0.9 % NACL 100 UNIT/100 ML PLAST..BAG 7.5 UNIT IV (09:40)
[2024-05-27 10:53] LABS: Estimated Average Glucose 312 mg/dL; Glycohemoglobin A1C 12.5 % (4.5-6.2)
== END 2024-05-27 10:50 | disposition left against medical advice (07) ==
PROVIDERS: Internal Medicine; Emergency Provider Emergency Medicine; PCP Nurse Practitioner
DX: E13.10 Other specified diabetes mellitus with ketoacidosis without coma (principal); Z53.29 Procedure and treatment not carried out because of patient's decision for other reasons; Z79.4 Long term (current) use of insulin; Z87.891 Personal history of nicotine dependence
CPT/HCPCS: 36415; 71045; 80048; 80307; 81001; 82009; 82800; 83036; 83735; 84100; 84703; 85007; 85027; 87040; 93005; 96361; 96374; 99285; J1817; J2405

== ENCOUNTER 2025-03-01 | Emergency (ER) | payer OTHER, SELFPAY ==
--- OUTSIDE RECORDS SUMMARY | 2024-07-05 09:30 | XMS_ITS ---
Author Organization [facility] vices Address [address], [place] [id number] Care Team Providers Care Engineering Systems Analyst Name Role Phone Brandy Alcantara Primary Care Provider REASON FOR VISIT HTN Social History Sex Assigned At : Social History Observation Description Sex Assigned At Female Encounters Encounter Location Date Provider Diagnosis Main [address] [id number] 07/05/2024 Brandy Alcantara Plan Of Treatment No Information Progress Notes * Douglas MELO NDOB: 3 (29 yo F)Acc No.[id number]:07/05/2024 Medical Note Patient: Douglas VEGA Provider: Jose Alcantara MD :1995 A ge:29 Y S ex:Female Date:07/05/2024 Address:[address] [place], [place] [id number] Subjective: * Chief Complaints: * 1 . HTN. * Medical History: Objective: * Vitals: Assessment: Plan: * Treatment: * Billing Information: * Visit Code: * Procedure Codes: * Electronic signature of Daniel Alcantara MD on 03/01/2025 at 12:08 AM EDT Sign off status: Pending * Provider: Jose Alcantara MD Date: 07/05/2024 Generated for Printi ng/Faxing/eTransmitting on: 0 03/01/2025 12:08 AM EDT
--- OUTSIDE RECORDS SUMMARY | 2024-07-21 07:56 | XMS_ITS | Continuity of Care Document ---
Author Organization [facility] Address [address] [place] [id number] Phone Care Team Providers Care Briar Cutter Name Role Phone Yelitza YANNICK GRIMMRadha Unavailable Unavaila ble Allergies, Adverse Reactions, Alerts Substance Reaction Status Criticality shellfish derived Active No Informa tion Penicillins Active No Information Medications Medication Instructions Dosage Effective Dates (start - stop) Status Comments Lexapro 20 mg tablet take 1 tablet by oral route every day 20 MG - Active Lantus U-100 Insulin 100 unit/mL subcutaneous solution inject 10 units by subcutaneous route every bedtime 10 units - Active give needles OneTouch Ultra2 Meter Use to check FSBS TID AC - Active may substitute based on insurance formulary OneTouch UltraSoft 2 Lancet 30 gauge Check FSBS TID AC - Active may sub based on insurance formualry OneTouch Ultra Test strips Use to check FSBS TIC AC - Active may sub based on insurance formualry FreeStyle Js 2 Sensor kit Use as directed on package insert for continuous glucose monitoring for 14 days then change sensor. - Active Seroquel 50 mg tablet take 1 tablet by oral route every day 50 MG - Active Zanaflex 4 mg capsule take 0.5 capsule by oral route every 6 - 8 hours as needed not to exceed 3 doses in 24 hours 2 MG - Active Humalog U-100 Insulin 100 unit/mL subcutaneous cartridge inject by subcutaneous route per prescriber's instructions. Insulin dosing requires individualization. 0.00 - Active Procedures Procedure Date CAPILLARY BLOOD DRAW GLUCOSE BLOOD TEST ROUTINE VENIPUNCTURE OFFICE/OUTPATIENT VISIT, EST GLYCOSYLATED HEMOGLOBIN TEST OFFICE/OUTPATIENT VISIT, NEW HEMOGLOBIN A1C LEVEL > 9.0% LDL-C 100-129 MG/DL DIAST BP 80-89 MM HG SYST BP < 130 MM HG MED LIST DOCD IN [facility] RVW MEDS BY RX/DR IN [facility] TOBACCO NON-USER Pos clin depres scrn f/u doc Advance Directives Directive Yes / No Effective Date File Name No Information Encounters Encounter Description Practice Location Reason(s) For Visit Diagnoses Date Provider Providers Copied on Encounter [facility], [address] [place] [address], [id number] , [place] tel: [phone] [facility] No Information 5 Yelitza COLBERT-Colt Garcia. [address] [place] [address], [id number], [place]. tel:+ [phone] OFFICE/OUTPA TIENT VISIT, [facility], [address] [place] [address], [id number] , [place] tel:+ [phone] [facility] Wellness and lab draw (chief complaint) Lab draw (chief complaint) Type 1 diabetes mellitus with hyperglycemiaInsulin pump in placeBody mass index [BMI] 28.0-28.9, adultModerate episode of recurrent major depressive disorderPsoriasisCla mmy skinEncounter for screening for human immunodeficiency virus [HIV]Need for hepatitis C screening testScreening for thyroid disorderEncounter for vitamin deficiency screeningEncounter for screening for cardiovascular disordersVapes nicotine containing substance 4 Yelitza HERNANDEZP-C Radha. [address] [place] [address], [id number], [place]. tel: [phone] [facility], [address] [place] [address], [id number] , [place] tel:+ [phone] [facility] No Information 4 Yelitza DARNELLN DAY HAUL YOUTH SUPERVISOR-C Radha. [address] [place], [address], [place]. tel: [phone] OFFICE/OUTPA TIENT VISIT, [facility], [address] [facility], [place], [place], [id number] , [place] tel: [phone] [facility] (chief complaint) Body mass index [BMI] 27.0-27.9, adultType 1 diabetes mellitus with hyperglycemiaInsulin pump in placePsoriasisVapes nicotine containing substance 4 Yelitza DARNELLN DAY HAUL YOUTH SUPERVISOR-C Radha. [address] [place], [address], [place]. tel: [phone] Family History Family Member Type Diagnosis Age At Onset Mother Problem Diabetes mellitus Mother Problem Asthma Mother Problem Hypertension Mother Problem Mental disorder Mother Problem ADD/ADHD Mother Problem Seizure disorder Mother Problem Depression Mother Problem Allergies Payers Payer name Insurance type Covered alliance party ID Authoriza tion(s) No Information Social History Type Description Quantity Date Captured Comments Alcohol Use Details Unknown Caffeine Use Details Unknown Tobacco Use Status No Information Smoking Status No Information Sex Female Sexual Orientation Straight or heterosexual Nov Gender Identity Female Chief Complaint And Reason For Visit No Information Reason For Referral Reason For Referral No Information Plan Of Treatment Date Type Action Status Goal Unhealthy drug use screening . Due on due Goal Depression screening. Due on due Goal HPV. Due on due Goal Lipid panel. Due on 025 due Goal PRAPARE ASSESSMENT. Due on due Goal Foot exam. Due on due Goal ASCVD 10 year risk. Due on due Goal Urine microalbumin. Due on due Goal Pneumococcal vaccine. Due on due Goal Hemoglobin A1C. Due on due Goal Hep B (). Due on due Goal Dental exam. Due on due Goal Dilated eye exam. Due on Jun due Goal Influenza vaccine. Due on due Goal Tdap Vaccine. Due on 2024 due Goal Tdap. Due on due Goal RLP. Due on due Goal Hepatitis C screening. Due o n due Goal Foot exam. Due on due Goal Hemoglobin A1C. Due on due Goal Urine microalbumin. Due on A due Goal Pneumococcal vaccine. Due on due Goal Dental exam. Due on due Goal ASCVD 10 year risk. Due on A due Goal Hep B (). Due on due Goal Dilated eye exam. Due on Jan due Goal RLP. Due on due Goal Unhealthy drug use screening . Due on due Goal HPV. Due on due Goal Influenza vaccine. Due on due Goal Tdap Vaccine. Due on 2023 due Goal Hepatitis C screening. Due o n due Goal PRAPARE ASSESSMENT. Due on A due Goal Depression screening. Due on due Goal Tdap. Due on due Goal Lipid panel. Due on due Goal Dietary management education , guidance, and counseling completed Goal Pneumococcal vaccine. Due on due Goal Hemoglobin A1C. Due on due Goal Foot exam. Due on due Goal ASCVD 10 year risk. Due on due Goal Dental exam. Due on due Goal Urine microalbumin. Due on due Goal Dilated eye exam. Due on Nov due Goal RLP. Due on due Goal Influenza vaccine. Due on due Goal PRAPARE ASSESSMENT. Due on due Goal Hep B (). Due on due Goal Tdap Vaccine. Due on 2023 due Goal Unhealthy drug use screening . Due on due Goal HPV. Due on due Goal Hepatitis C screening. Due o n due Goal Depression screening. Due on due Goal Tdap. Due on due Goal Lipid panel. Due on due Goal Foot exam. Due on due Goal ASCVD 10 year risk. Due on due Goal Hep B (1st). Due on due Goal Dilated eye exam. Due on Nov due Goal Dental exam. Due on 024 due Goal Pneumococcal vaccine. Due on due Goal Hemoglobin A1C. Due on due Goal Urine microalbumin. Due on due Goal Hep A. Due on du e Goal HPV. Due on due Goal Tdap. Due on due Goal RLP. Due on due Goal Unhealthy drug use screening . Due on due Goal Lipid panel. Due on 025 due Goal Influenza vaccine. Due on due Goal Tdap Vaccine. Due on 2023 due Goal Hepatitis C screening. Due o n due Goal Depression screening. Due on due Goal PRAPARE ASSESSMENT. Due on due Goal Dietary management education , guidance, and counseling completed Referral Ordered: Endocrinology, Diabetes and Metabolism (related to Type 1 diabetes mellitus with hyperglycemia) ordered Referral Ordered: Dermatology (related to Psoriasis) ordered History Of Present Illness Encounter Date Complaint History Of Prese nt Illness Lab draw [facility] draw [facility] x 1 attempt, tolerated well, pressure dressing to area. Chhaya Perez RN Wellness and lab draw Presents f or wellness visit and lab draw. Pt reports that she has not seen endocrine yet but has been in contact with them but does not have an appointment scheduled yet. Pt reports that she is sweating a lot and is concerned about that. States that she did get a glucometer and has been checking FSBS. FSBS 321 today in office. Chhaya Perez RN I have reviewed all above information and agree. Is clammy today and sweating a lot. Has not noticed a difference in blood sugars when sweating. Has Omnipod insulin pump. Was referred to Dr. Galloway to manage this 1.5 months ago. Has not made appointment yet. Previous PCP managed her insulin pump and pt was advised I cannot manage the pump last visit and was referred to endocrine for this. Pt was ordered CGM and glucometer with supplies last visit. Pt had requested dermatology referral last appt for psoriasis. Has not gone there either. Was in senior care for 8 days until January 04 for ETOH in urine at probation. Urine was sent to lab and was actually glucose from DM and not ETOH. Would like antidepressant for depression. Denies SI/HI. Vision: noneDDS: none LKastor HEAD SAWYER AUTOMATIC est care Pt here today to est care. Previous was Dr. Luna in [place], last seen him was 10/18/23/ Pt states is type 1 diabetic and PCP was managing DM. States used to go to specialists for DM, but does not anymore. Pt states is living at a sober living house and household appliance installer manages medication and has only a 7 day supply at a time. Pt states just picked up refill of prescriptions. Pt c/o psoriasis being all over body, hands, legs, back, and buttock area. Pt states was supposed to see a human development professor behind [facility], but did not hear from them. Pt states her joints are starting to hurt from psoriasis. Pt states has tried all kinds of creams and has tried Triliptal w/o relief. Pt denies any other issues or concerns at this time. Sukumar. I have reviewed all above information and agree. Living at [facility]. Sober x5 months. DCO: meth. Feeling tired and depressed.Type 1 diabetic. Has OmniPod. Does not check sugars. Does not really monitor carb intake. Been feeling very tired lately. Does not have glucometer. Interested in CGM. C/O neuropathy in feet from DM. Used to see Dr. Galloway. Has not seen for a year or so. Wants to see dermatology for psoriasis on multiple areas of body. Denies needs/concerns today. DDS: noneEye: noneGYN[facility]andice [employer] Functional Status Date Functional Assessmen t No Information Instructions Date Instruction Additional Infor mation Giving encouragement to exercise Related to Body mass index [BMI] 28.0-28.9, adult Dietary management e ducation, guidance, and counseling Related to Body mass index [BMI] 28.0-28.9, adult Giving encouragement to exercise Related to Body mass index [BMI] 27.0-27.9, adult Dietary management e ducation, guidance, and counseling Related to Body mass index [BMI] 27.0-27.9, adult Assessments Type Assessment Date No Information Goals Health Concern Goal Type Priority Status Date Patient is at risk of recurrent hypoglycemia related to diabetes. Patient will be compliant with diabetic diet. Patient Goal Continued Patient Care Teams Name Effective Dates (start - stop) Status Members No Information
--- OUTSIDE RECORDS SUMMARY | 2024-07-30 07:00 | XMS_ITS ---
Author Organization [facility] vices Address [address], [place] [id number] Care Team Providers Care Hardware Assembler Name Role Phone Brandy Alcantara Primary Care Provider Allergies Allergen (clinical drug ingredient) Drug/Non Drug Allergy documented on EMR Reaction Allergy Type Onset Date Status Penicillin anaphylaxis Drug Allergy Acti ve Shellfish (FN) Shellfish-derived Products anaphylaxis Drug Allergy Active REASON FOR VISIT Anxiety & DKA Medications Medication SIG (Take, Route, Frequency, Duration) Notes Start Date End Date Status Insulin Lispro 100 UNIT/ML Injection; Duration: 90 Days Active Escitalopram Oxalate 10 MG 1 tablet Orally Once a day; Duration: 60 days 06/18/2024 Active Ibuprofen 800 MG 1 tablet with food o r milk as needed Orally every 8 hrs Not-Taking Cefuroxime Axetil 500 MG 1 tablet Orally every 12 hrs; Duration: 7 days 06/01/2024 Not-Taking Azithromycin 500 MG 1 tablet Orally gabi y; Duration: 3 days 06/01/2024 Not-Taking Omnipod DASH Pods (Gen 4) - CHANGE EVERY 72 HOURS; Duration: 30 Days Active Albuterol Sulfate HFA 108 (90 Base) MCG/ACT 1 puff as needed Inhalation every 4 hrs; Duration: 30 days 06/01/2024 Active Ondansetron HCl 4 MG 1 tablet Orally Onc e a day; Duration: 30 day(s) 06/01/2024 Active Social History Sex Assigned At : Social History Observation Description Sex Assigned At Female Encounters Encounter Location Date Provider Diagnosis Main [address] [place] [id number] 07/30/2024 Brandy Alcantara Plan Of Treatment No Information Progress Notes * Douglas MELO NDOB: 3 (29 yo F)Acc No.[id number]:07/30/2024 Patient: Douglas VEGA Provider: Jose Alcantara MD :1995 A ge:29 Y S ex:Female Date:07/30/2024 Address:[address] [place], [place] [id number] Subjective: * Chief Complaints: * 1 . Anxiety & DKA. * Medical History: D M type 1, hx of DKA. * Surgical History: c esarean section X2 . * Hospitalization/Major Diagno stic Procedure: s ee surgical hx . * Family History: F ather: unknown. M other: alive, MS, diagnosed with Hypertension. P aternal Grand Father: unknown. P aternal Grand Mother: unknown. M aternal Grand Father: alive, diagnosed with Hypertension, Heart Disease. M aternal Grand Mother: alive. B rico: unknown. S isrenée: unknown. * Medications: T aking Albuterol Sulfate HFA 108 (90 Base) MCG/ACT Aerosol Solution 1 puff as needed Inhalation every 4 hrs , Taking Ondansetron HCl 4 MG Tablet 1 tablet Orally Once a day , Taking Omnipod DASH Pods (Gen 4) - Miscellaneous CHANGE EVERY 72 HOURS , Taking Insulin Lispro 100 UNIT/ML Solution Injection , Taking Escitalopram Oxalate 10 MG Tablet 1 tablet Orally Once a day , Not-Taking/PRN Cefuroxime Axetil 500 MG Tablet 1 tablet Orally every 12 hrs , Not-Taking/PRN Azithromycin 500 MG Tablet 1 tablet Orally daily , Not-Taking/PRN Ibuprofen 800 MG Tablet 1 tablet with food or milk as needed Orally every 8 hrs * Allergies: P enicillin: anaphylaxis - Allergy, Shellfish-derived Products: anaphylaxis - Allergy. Objective: * Vitals: * Examination: C QM Exceptions: Currently taking Aspirin: A spirin Use: N o Assessment: Plan: * Treatment: * Billing Information: * Visit Code: * Procedure Codes: * Electronic signature of Daniel Alcantara MD on 03/01/2025 at 12:08 AM EDT Sign off status: Pending * Provider: Jose Alcantara MD Date: 0 07/30/2024 Generated for Dominique castellon/Claudia/Radhaitting on: 0 03/01/2025 12:08 AM EDT History and Physical Notes * Examination Category Sub-Category Detail Notes Category Not es CQM Exceptions Currently taking Aspirin: Aspirin Use:: No
[2025-03-01 00:05] VITALS: BP 150/82; PULSE 60; TEMP 36.7; O2SAT 98; BMI 32.9
--- OUTSIDE RECORDS SUMMARY | 2025-03-01 00:08 | XMS_ITS | Patient Health Record ---
Author Organization [facility] [place] Address [address] [place] [address] Care Team Providers Care Labor Mediator Name Role Phone Ricardo Emerson [phone] Reason For Referral No Information Plan Of Treatment No Information
--- OUTSIDE RECORDS SUMMARY | 2025-03-01 00:10 | XMS_ITS | CCD ---
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 Name Role Phone PHYSICIAN, DEFAULT Unavailable Unavailable PHYSICIAN, DEFAULT Unavailable Unavailable No, Physician Primary Care Provider Unavailabl e NO, PHYSICIAN Primary Care Unavailable SYSTEM, PROVIDER NOT IN Referring Unavaila CAM Johnson Attending Neida Rekha Bundy Admitting Unavailable Tamiko Álvarez Consulting Unavailable ARCADIO IGLESIAS Primary Care Unavailable GIUSEPPE CHRISTIE Admitting Unavailable GIUSEPPE CHRISTIE Attending Unavailable GIUSEPPE CHRISTIE Consulting Unavailable Darcie Bruner Consulting Unavailable Arcadio Iglesias Primary Care Provider JEREMY, DR ARCADIO Ballesteros Attending Unavailable JEREMY, DR ARCADIO Ballesteros Admitting Unavailable URI ., DR CAMPBELL Consulting Unavailable JEREMY, DR ARCADIO Ballesteros Primary Care Unavailable JEREMY, DR ARCADIO Ballesteros Consulting Unavailable FABI FIGUEROA Consulting Unavailable ROSA M MENDEZ Consulting Unavailable JEREMY, DR ARCADIO Ballesteros Primary Care Unavailable SHAIKH Scar BARTLETT Admitting Unavailable SHAIKH Scar BARTLETT Attending Unavailable JEREMY, DR ARCADIO Ballesteros Primary Care Unavailable JEREMY, DR ARCADIO Ballesteros Consulting Unavailable JEREMY, DR ARCADIO Ballesteros Attending Unavailable JEREMY, DR ARCADIO Ballesteros Admitting Unavailable MARTIN DAVIS Consulting Unavailable ARCADIO IGLESIAS Primary Care Unavailabl e EDI LATHAM Admitting Unavailable LINN JOHNSON Referring Unavailab RM Shetty Attending Unavailable AOUAD, RAD T Consulting Unavailable ALI, LETTY BOLAÑOS Admitting Unavailable ALI, LETTY BOLAÑOS Attending Unavailable PHYSICIAN, UNKNOWN Referring Unavailable NADERER, ARCADIO Primary Care Unavailable NIRAV DREW Consulting Unavailable ASH MUNGUIA Consulting Unavailable ARAR, BRYCE H Consulting Unavailable NADERER, ARCADIO Primary Care Unavailable FERNANDA, MATTHEW Attending Unavailable DYLON DARDEN Referring Unavailable NADERER, ARCADIO Primary Care Unavailable NADERER, ARCADIO A Primary Care Unavailable Maxi Payne Admitting Unavailable Maxi Payne Attending Unavailable Nirav Armenta Admitting Unavailable Nirav Armenta Attending Unavailable NADERER, ARCADIO A Primary Care Unavailable HAIR, ANDRESSA Admitting Unavailable TESANDRESSA LLANOS Attending Unavailable NADERER, ARCADIO A Primary Care Unavailable Omley, Linn H Admitting Unavailable Omley, Linn H Attending Unavailable NADERER, ARCADIO A Primary Care Unavailable Felipa Sahniity L Admitting Unavailable Mami Sahni L Attending Unavailable NADERER, ARCADIO A Primary Care Unavailable Gustavo Marc K Attending Unavailable NADERER, ARCADIO A Primary Care Unavailable Luc Marcg K Admitting Unavailable Omley, Linn H Admitting Unavailable Omley, Linn H Attending Unavailable NADERER, ARCADIO A Primary Care Unavailable Tyler Gross Attending Unavailab Tyler Tuttle Admitting Unavailab chelsie Iglesias, Arcadio Primary Care Unavailable Nirav Traylor MD Primary Care Provider Arcadio Iglesias MD Unavailable Arcadio Iglesias MD Primary Care Provider [phone] Services, [facility] Primary Care Provider Nirav Traylor MD Primary Care Provider FELISA GALLOWAY Attending Unavailable KENDAL SOMMERS Attending Unavailable AMMY RUVALCABA Referring Unavailable KENDAL SOMMERS Referring Unavailable FELISA GALLOWAY Attending Unavailable F[facility]ISA GALLOWAY [facility] CALEB BHAGAT Attending Unavailable SERVICES, [facility] Primary Care Unava ilable FAM SMART Attending Unavailable SERVICES, [facility] Primary Care Unava ilable JEREMY, ARCADIO Primary Care Unavailable KINZA JADE Attending Unavailable SERVICES, [facility] Unava ilable DEMETRI VALENZUELA Attending Unavailable ANJELICA GERARDO Admitting Unavailable CALEB BHAGAT Referring Unavailable SERVICES, [facility] Unava ilable CALEB BHAGAT Referring Unavailable SERVICES, [facility] Unava ilable SERVICES, [facility] Unava ilable BRIDGETTE KEYS Attending Unavailable Allergies Allergy Classification Reported Allergen(s) Allergy Type Date of Onset Reaction(s) Facility (20 sources) Penicillins; Translations: [PENICILLINS] Propensity to adverse reactions to drug 3 Swelling, Anaphylaxis [facility] (20 sources) Shellfish; Translations: [SHELLFISH DERIVED] Propensity to adverse reactions to drug 0 [facility] (3 sources) Penicillin; Translations: [penicillin] Drug Allergy [facility] (4 sources) Shellfish; Translations: [shellfish] Drug allergy (disorder) 4 [facility] (15 sources) Shellfish-Deriv ed Products Propensity to adverse reactions to drug 1 Swelling [place], [place] (16 sources) SHELLFISH CONTAINING PRODUCTS; Translations: [SHELLFISH CONTAINING PRODUCTS] Propensity to adverse reactions to food (disorder) 7 Anaphylaxis [facility] Medications Current Medications Medication Drug Class(es) Dates Sig (Normalized) Sig (Original) acetaminophen 325 mg oral tablet (2 sources) Start: 05-27-2024 take 1 tablet by mouth every four hours as needed for headache and fever and pain 650 mg, oral, Every 4 hours PRN, headaches, temperature greater than 38 C, mild pain - pain scale 1-3, Starting on Ailin 05/27/24 at 1632, Scheduling/ADT, [Warning: Total Acetaminophen not to exceed more than 4 grams (4000 mg) in 24 hours] Start: 06-07-2020 End: 06-10-2020 take 1 tablet by mouth every four hours as needed 650 mg, Oral, Every 4 hours PRN, mild pain, fever 100.4 F or greater, headaches, Starting 06/07/20 at 1120 albuterol 90 mcg/actuation inhaler (2 sources) take 2 puff(s) by inhalation every four hours as needed for wheezing albuterol 90 mcg/actuation inhaler Inhale 2 puffs every 4 (four) hours as needed for wheezing . 0 Active aluminum hydroxide 40 mg/ml / magnesium hydroxide 40 mg/ml / simethicone 4 mg/ml oral suspension (1 source) Start: 05-27-2024 take 30 mL by mouth four times daily at bedtime as needed 30 mL, oral, 4 times daily after meals and at bedtime as needed, dyspepsia, Starting on Ailin 05/27/24 at 1632, Scheduling/ADT, Look-alike/sound-alike medication - verify indication for use. Sergey well., Indications: dyspepsia 100 ml calcium gluconate 20 mg/ml injection (2 sources) Start: 05-29-2024 take 4-4.3 mg intravenously every hour as needed 2,000 mg, intravenous, at 50 mL/hr, Administer over 2 Hours, As needed, ionized calcium 4 to 4.3 mg/dL, Starting on 05/29/24 at 0756, IV Administration of calcium via a central or deep vein preferred. Avoid administration in small hand veins VESICANT (RED) Start: 07-02-2023 End: 07-04-2023 calcium gluconate IVPB 1000 mg/50 mL (20 mg/mL premix) calcium gluconate 3,000 mg in sodium chloride 0.9 % 100 mL IVPB (1 source) Start: 05-29-2024 take 3.5-3.9 mg intravenously every hour as needed 3,000 mg, intravenous, at 43.3 mL/hr, Administer over 3 Hours, As needed, ionized calcium 3.5 to 3.9 mg/dL, Starting on 05/29/24 at 0756, IV Administration of calcium via a central or deep vein preferred. Avoid administration in small hand veins VESICANT (RED) calcium gluconate 4,000 mg in sodium chloride 0.9 % 250 mL IVPB (1 source) Start: 05-29-2024 take 3.4 mg intravenously every hour as needed 4,000 mg, intravenous, at 72.5 mL/hr, Administer over 4 Hours, As needed, ionized calcium 3.4 mg/dL or less, Starting on 05/29/24 at 0756, IV administration of calcium via a central or deep vein is preferred. Avoid administration in small hand veins. VESICANT (RED) carisoprodol 350 mg oral tablet (17 sources) Muscle Relaxant take 1 tablet by mouth three times daily as needed for muscle spasms carisoprodol (Soma) 350 MG tablet Take 350 mg by mouth 3 (three) times a day as needed for muscle spasms Active End: 05-27-2024 take 1 tablet by mouth four times daily as needed for muscle spasms carisoprodoL (SOMA) 350 mg tablet Indications: muscle spasm Take 1 tablet (350 mg total) by mouth 4 (four) times a day as needed for muscle spasms Indications: muscle spasm. 05/27/2024 Discontinued (Patient Stopped On Own) 200 ml ciprofloxacin 2 mg/ml injection (1 source) Quinolone Antimicrobial Start: 05-29-2024 take 400 mg intravenously every twenty-four hours 400 mg, intravenous, at 200 mL/hr, Administer over 60 Minutes, Every 24 hours, First dose on 05/29/24 at 1600, Protect from light; May alter blood glucose or insulin requirements., Specific Use Criteria: UTI (with multiple drug allergies), Fluoroquinolones contain FDA Black Box warnings. Due to safety concerns, avoid use in acute bacterial sinusitis, acute bacterial exacerbation of chronic bronchitis, or acute uncomplicated cystitis if possible. Use alternative treatment if available. I acknowledge the Black Box warnings of fluoroquinolones. docusate sodium 50 mg / sennosides, [facility] 8.6 mg oral tablet (1 source) Start: 05-27-2024 take 1 tablet by mouth every twelve hours as needed for constipation 1 tablet, oral, Every 12 hours PRN, constipation, Starting on Ailin 05/27/24 at 1632, Scheduling/ADT doxylamine succinate 25 mg oral tablet (10 sources) Start: 01-18-2025 take 1 tablet by mouth once daily as needed for nausea doxylamine (UNISOM) 25 mg tablet Indications: Nausea/vomiting in Take 1 tablet (25 mg total) by mouth nightly as needed for sleep or nausea. 30 tablet 1 01/18/2025 Active glucagon (rdna) 1 mg injection (3 sources) Antihypoglycemic Agent Start: 05-27-2024 1 mg, intramuscular, As needed, low blood sugar, blood glucose less than 70 mg/dL and unconscious or NPO without IV access., Starting on Ailin 05/27/24 at 1632, If conscious and not NPO, immediately follow with meal tray or high protein (7Grams) snack if tray not available. If NPO, initiate IV 5% Dextrose/Water at 100 mL/hr and contact prescriber for additional orders. If blood glucose is not greater than 70 mg/dL after initial treatment, repeat treatment. Start: 07-02-2023 End: 07-04-2023 glucagon HCL injection 1 mg Start: 07-31-2020 glucagon (rDNA ) injection 1 mg 50 ml glucose 500 mg/ml prefilled syringe (8 sources) Start: 05-27-2024 15 g, oral, As needed, low blood sugar, blood glucose less than 70 mg/dL, Starting on Ailin 05/27/24 at 1632, If patient conscious and taking PO. If blood glucose is not greater than 70 mg/dL after initial treatment, repeat treatment. Start: 05-27-2024 25 mL, intrave nous, As needed, low blood sugar, blood glucose less than 70 mg/dL and unconscious or NPO with IV access, Starting on Ailin 05/27/24 at 1632, Push over 1-3 minutes STAT. If conscious and not NPO, immediately follow with meal tray or high protein (7 grams) snack if tray not available. If NPO, initiate 5% dextrose in water at 100 mL/hr and contact prescriber for additional orders. If blood glucose is not greater than 70 mg/dL after initial treatment, repeat treatment. VESICANT (RED) Warning: HYPERTONIC solution. Start: 07-02-2023 End: 07-04-2023 dextrose (GLUTOSE) 40 [...] ml glucose 50 mg/ml / potassium chloride 0.02 meq/ml / sodium chloride 9 mg/ml injection (7 sources) Start: 05-27-2024 End: 05-31-2024 take 250 mg intravenously every hour as needed 250 mL/hr, intravenous, Continuous PRN, for blood glucose 250mg/dL or less, Starting on Fri05/28/24 at 1823, For 3 days, Once IV fluid is changed to dextrose-containing formulation, DO NOT change to [id number] IV fluid if blood glucose exceeds 250 mg/dL. Start: 07-03-2023 End: 07-03-2023 dextrose 5 % and sodium chlo ride 0.45 % with KCl 40 mEq/L infusion Start: 07-02-2023 End: 07-04-2023 dextrose 5 % and sodium chlo ride 0.9 % with KCl 40 mEq/L infusion Start: 07-30-2020 End: 07-31-2020 dextrose 5 % and 0.45 % NaCl with KCl 20 mEq infusion Start: 06-07-2020 End: 06-08-2020 dextrose 5 % and sodium chlo ride 0.45 % with KCl 20 mEq/L infusion 1 ml heparin sodium, porcine 5000 unt/ml injection (1 source) Unfractionated Heparin, Anti-coagulant Start: 05-28-2024 5,000 Units, subcutaneous, Every 8 hours scheduled, First dose on Fri05/28/24 at 0600, Scheduling/ADT, Notify prescriber if INR greater than 1.9, hemoglobin less than 10 mg/dL, aPTT greater than 40 seconds, and/or platelet count less than 100,000/mm Look-alike/sound-alike medication - verify indication for use. Observe for bleeding. ibuprofen 800 mg oral tablet (15 sources) Nonsteroidal Anti-inflammatory Drug Start: 10-10-2023 take [...] Pump (Omnipod DASH Pods, Gen 4,) misc (16 sources) Start: 12-29-2024 Insulin Dispos able Pump (Omnipod DASH Pods, Gen 4,) misc Indications: Type 1 diabetes mellitus with hyperglycemia (HCC) REPLACE POD EVERY 72 HOURS 15 each 12/29/2024 Active Start: 10-19-2024 Insulin Dispos able Pump (Omnipod DASH Pods, Gen 4,) misc Indications: Type 1 diabetes mellitus with hyperglycemia (HCC) (CMS/HCC) USE DIRECTED, REPLACE POD EVERY 72 HOURS 10 each 10/19/2024 Active Start: 10-18-2024 End: 10-19-2024 Insulin Disposable Pump (Omn ipod DASH Pods, Gen 4,) mis Indications: Type 1 diabetes mellitus with hyperglycemia (HCC) (CMS/HCC) USE DIRECTED, REPLACE POD EVERY 72 HOURS 10 each 10/18/2024 10/19/2024 Discontinued (Reorder) Start: 10-18-2024 Insulin Dispos able Pump (Omnipod DASH Pods, Gen 4,) mis Indications: Type 1 diabetes mellitus with hyperglycemia (HCC) (CMS/HCC) USE DIRECTED, REPLACE POD EVERY 72 HOURS 10 each 10/18/2024 Active Start: 09-18-2023 Insulin Dispos able Pump (Omnipod DASH Pods, Gen 4,) mis Indications: Type 1 diabetes mellitus with hyperglycemia (HCC) (CMS/HCC) USE DIRECTED, REPLACE POD EVERY 72 HOURS 10 each 11 09/18/2023 Active 3 ml insulin glargine 100 unt/ml pen injector (18 sources) Insulin Analog Start: 05-30-2024 20 Units, subc utaneous, 2 times daily, First dose (after last modification) on 05/30/24 at 2100, Look-alike/sound-alike medication - verify indication for use. Prime with 2 units of insulin prior to administration. Basal (long acting) insulin for subcutaneous administration only. Do not mix with any other insulin. Pre-filled pens stable 28 days at room temperature. Start: 05-29-2024 End: 05-30-2024 15 Units, subcutaneous, 2 ti mes daily, First dose on 05/29/24 at 1200, Look-alike/sound-alike medication - verify indication for use. Prime with 2 units of insulin prior to administration. Basal (long acting) insulin for subcutaneous administration only. Do not mix with any other insulin. Pre-filled pens stable 28 days at room temperature. Start: 07-04-2023 End: 01-18-2025 inject 20 [IU] by subcutaneous injection in the morning insulin glargine (LANTUS, SEMGLEE) 100 unit/mL (3 mL) insulin pen Inject 20 Units under the skin in the morning and 20 Units before bedtime. 15 mL 12 07/04/2023 01/18/2025 Discontinued (Therapy completed) Start: 07-04-2023 End: 07-04-2023 inject 20 [IU] by subcutaneous injection in the morning insulin glargine (LANTUS, SEMGLEE) 100 unit/mL (3 mL) insulin pen Inject 20 Units under the skin in the morning and 20 Units before bedtime. 15 mL 12 07/04/2023 Active Start: 07-03-2023 End: 07-03-2023 insulin glargine (LANTUS, SE MGLEE) injection pen 10 Units Start: 07-31-2020 End: 08-01-2020 insulin glargine (LANTUS) in jection vial 20 Units Start: 06-10-2020 End: 07-10-2020 inject 20 [IU] by subcutaneous injection twice daily insulin glargine (LANTUS) 100 unit/mL injection Inject 20 (twenty) Units under the skin 2 (two) times a day . 12 mL 0 06/10/2020 Active Start: 06-09-2020 End: 06-10-2020 insulin glargine (LANTUS) in jection 20 Units Start: 06-08-2020 End: 06-09-2020 insulin glargine (LANTUS) in jection 15 Units insulin lispro 100 unt/ml injectable solution (20 sources) Insulin Analog Start: 10-18-2024 Insulin Lispro 100 UNIT/ML solution Indications: Type 1 diabetes mellitus with hyperglycemia (HCC) Inject 100 Units under the skin continuously WITH INSULIN PUMP 100 mL 3 10/18/2024 Active Start: 07-15-2024 Insulin Lispro 100 UNIT/ML solution Indications: Type 1 diabetes mellitus with hyperglycemia (HCC) (CMS/HCC) INJECT 100 UNITS SUBCUTANEOUSLY (UNDER THE SKIN) continuosly 100 mL 3 07/15/2024 Active Start: 05-29-2024 inject 400 mg by sub cutaneous injection once daily, then inject 2 [IU] by subcutaneous injection 15 minutes after mealtime 2-8 Units, subcutaneous, Nightly, First dose on 05/29/24 at 2200, Bedtime hyperglycemia dosing. For blood glucose 201-250 mg/dL, give 2 units. For blood glucose 251-300 mg/dL, give 4 units. For blood glucose 301-350 mg/dL, give 6 units. For blood glucose 351-400 mg/dL, give 8 units. Give even if NPO or meals skipped. Do NOT give more often then every 4 hours when NPO. Notify prescriber if blood glucose greater than 400 mg/dL. Look-alike/sound-alike medication - verify indication for use. Prime with 2 units of insulin prior to administration. Prandial/supplemental Insulin. Pre-filled pens stable 28 days at room temperature. Insulin lispro should be administered within 15 minutes before or immediately after a meal. Start: 05-29-2024 inject 400 mg by sub cutaneous injection three times daily at mealtime, then inject 2 [IU] by subcutaneous injection 15 minutes after mealtime 2-10 Units, subcutaneous, 3 times daily with meals, First dose on 05/29/24 at 1845, Daytime hyperglycemia dosing. For blood glucose 151-200 mg/dL, give 2 units. For blood glucose 201-250 mg/dL, give 4 units. For blood glucose 251-300 mg/dL, give 6 units. For blood glucose 301-350 mg/dL, give 8 units. For blood glucose 351-400 mg/dL, give 10 units. Give even if NPO or meals skipped. Do NOT give more often then every 4 hours when NPO. Notify prescriber if blood glucose greater than 400 mg/dL. Look-alike/sound-alike medication - verify indication for use. Prime with 2 units of insulin prior to administration. Prandial/supplemental Insulin. Pre-filled pens stable 28 days at room temperature. Insulin lispro should be administered within 15 minutes before or immediately after a meal. Start: 04-16-2024 inject 1 [IU] by sub cutaneous injection at mealtime insulin lispro (HumaLOG) 100 UNIT/ML injection Indications: Type 1 diabetes mellitus with hyperglycemia (HCC) INJECT 10-12-15 UNITS EACH MEAL PLUS SLIDING SCALE #2 (EXPECT 60 UNITS SUBCUTANEOUSLY (UNDER THE SKIN) DAILY) 60 mL 1 04/16/2024 Active Start: 04-12-2024 insulin lispro (HumaLOG) 100 [...] 4 mL 1 04/12/2024 Active Start: 09-18-2023 End: 10-10-2024 Insulin Lispro (HumaLOG) 100 UNIT/ML solution Indications: Type 1 diabetes mellitus with hyperglycemia (HCC) (CMS/HCC) Inject 1 each under the skin continuously 10 mL 3 07/12/2024 10/10/2024 Active Start: 08-01-2020 insulin lispro (HUMALOG) injection vial 3 Units Start: 06-08-2020 End: 07-10-2020 insulin lispro (HUMALOG) inj ection vial 0-6 Units Start: 07-09-2018 End: 01-18-2025 insulin lispro (HumaLOG) 100 unit/mL injection Take 2 units per 15 grams of carbohydrates up to 10 units per 75 grams of carbohydrates within 15 minutes of finishing meals together with correction insulin when needed. 1 Box 12 07/09/2018 01/18/2025 Discontinued (Therapy completed) insulin lispro (HumaLOG) injection 2-8 Units (1 source) Start: 07-04-2023 End: 07-04-2023 insulin lispro (HumaLOG) injection 2-8 Units 50 ml magnesium sulfate 40 mg/ml injection (3 sources) Start: 05-29-2024 2,000 mg, intr avenous, at 25 mL/hr, Administer over 120 Minutes, As needed, Magnesium level 1.7 to 1.9 mg/dL, or Ionized Magnesium level 0.45 to 0.5 mmol/L., Starting on 05/29/24 at 0756, Recheck magnesium level 4 hours after infusion complete. With each magnesium result continue the replacement orders as needed. Start: 05-29-2024 4,000 mg, intr avenous, at 25 mL/hr, Administer over 240 Minutes, As needed, Magnesium level 1.6 mg/dL or less, or Ionized Magnesium level 0.44 mmol/L or less, Starting on 05/29/24 at 0756, Recheck magnesium level 4 hours after infusion complete. With each magnesium result continue the replacement orders as needed. Start: 07-29-2020 magnesium sulf ate 1000 mg in dextrose 5% 100 mL IVPB melatonin 3 mg oral tablet (2 sources) Start: 05-30-2024 take 4.5 mg by mouth once daily as needed for sleep 4.5 mg, oral, Nightly PRN, sleep, Starting on 05/30/24 at 0151 Start: 08-01-2020 melatonin tabl et 3 mg nitrofurantoin, macrocrystals 25 mg / nitrofurantoin, monohydrate 75 mg oral capsule (3 sources) Nitrofuran Antibacterial Start: 01-25-2025 End: 01-30-2025 take 1 capsule by mouth in the morning, then take 1 capsule by mouth at bedtime nitrofurantoin, macrocrystal-monohydrate, (MACROBID) 100 mg capsule Indications: Cystitis during in first trimester, antepartum Take 1 capsule (100 mg total) by mouth in the morning and 1 capsule (100 mg total) before bedtime. Do all this for 5 days. 10 capsule 01/25/2025 01/30/2025 Active OMNIPOD DASH PODS, GEN 4, cartridge (10 sources) Start: 12-29-2024 OMNIPOD DASH PODS, GEN 4, cartridge REPLACE POD EVERY 72 HOURS 12/29/2024 Active ondansetron 4 mg oral tablet (14 sources) Serotonin-3 Receptor Antagonist Start: 02-15-2025 take 1 tablet by mouth once daily as needed for nausea ondansetron (ZOFRAN) 4 mg tablet Take 1 tablet (4 mg total) by mouth daily as needed for nausea or vomiting. 30 tablet 1 02/15/2025 Active Start: 05-28-2024 End: 05-28-2024 take 4 mg by mouth once 4 mg, oral, Once, On Fri at 2330, For 1 dose Start: 05-27-2024 take 4 mg intravenou sly every six hours as needed for nausea and vomiting 4 mg, intravenous, Every 6 hours PRN, nausea, vomiting, Starting on Ailin 05/27/24 at 2154, Administer over 2-5 minutes. Start: 05-27-2024 End: 05-27-2024 take 1 tablet by mouth (buccal) every six hours as needed for nausea and vomiting 4 mg, buccal, Every 6 hours PRN, nausea, vomiting, Starting on Ailin 05/27/24 at 1632, Scheduling/ADT Start: 05-27-2024 End: 05-27-2024 4 mg, intravenous, Once, On Ailin 05/27/24 at 1515, For 1 dose, Administer over 2-5 minutes. Start: 07-03-2023 End: 07-03-2023 ondansetron (PF) (ZOFRAN) [...] nausea . 0 Active pantoprazole 40 mg injection (5 sources) Proton Pump Inhibitor Start: 05-28-2024 40 mg, intravenous, Every 24 hours scheduled, First dose on Fri05/28/24 at 1000, Look-alike/sound-alike medication - verify indication for use., Indication: Other (THUAN) Start: 06-07-2020 End: 06-10-2020 take 40 mg by mouth once daily 40 mg, Oral, Daily, Fir st dose on Fri06/07/20 at 1215 DO NOT CRUSH OR CHEW. End: 05-27-2024 pantoprazole (PROTONIX) 20 m g EC tablet Take 30 mg by mouth in the morning. 05/27/2024 Discontinued (Patient Stopped On Own) petrolatum 610 mg/ml topical cream (9 sources) Start: 10-02-2023 End: 10-01-2024 Skin Protectants, Misc. (eucerin) cream Indications: Plaque psoriasis (CMS/HCC) Apply topically if needed for wound care or dry skin 454 g 3 10/02/2023 10/01/2024 Active Potassium Chloride (8 sources) Start: 05-27-2024 potassium chlo ride (KLOR-CON M 10) CR tablet 30-40 mEq Start: 07-02-2023 End: 07-04-2023 potassium chloride (K-TAB,KL [...] chloride 20 mEq in 100 mL IVPB [id number] fum-folic () 27 mg iron- 1 mg tablet (10 sources) Start: 01-18-2025 take 1 tablet by mouth in the morning [id number] fum-folic () 27 mg iron- 1 mg tablet Indications: care, first trimester Take 1 tablet by mouth in the morning. 90 tablet 3 01/18/2025 Active Prochlorperazine (3 sources) Phenothiazine Start: 05-29-2024 take 1 tablet by mouth every six hours as needed for nausea and vomiting prochlorperazine (COMPAZINE) tablet 5 mg Start: 07-03-2023 End: 07-04-2023 take 5 mg intravenously every six hours as needed for nausea and vomiting prochlorperazine (COMPAZINE) injection 5 mg Start: 07-31-2020 prochlorperazi ne (COMPAZINE) injection 5 mg pyridoxine hydrochloride 25 mg oral tablet (10 sources) Start: 01-18-2025 pyridoxine, vitamin B6, (B-6) 25 mg tablet Indications: Nausea/vomiting in Take 1 tablet (25 mg total) by mouth in the morning and 1 tablet (25 mg total) at noon and 1 tablet (25 mg total) in the evening and 1 tablet (25 mg total) before bedtime. 120 tablet 1 01/18/2025 Active 72 hr scopolamine 0.0139 mg/hr transdermal system (1 source) Anticholinergic Start: 05-29-2024 1 patch, transdermal, Administer over 72 Hours, Every 72 hours, First dose on 05/29/24 at 1430, 1.5 mg patch delivers 1 mg scopolamine over 3 days. Patches are applied behind ear. Remove previous patch, before applying new. Remove patch prior to MRI procedure as serious mitchell may occur. A new patch must be reapplied to an alternate site. sertraline 100 mg oral tablet (2 sources) Serotonin Reuptake Inhibitor take 1 tablet by mouth once daily sertraline (ZOLOFT) 100 MG tablet Take 100 mg by mouth daily . 0 Active 1000 ml sodium chloride 9 mg/ml injection (14 sources) Start: 05-29-2024 take 100 mL intravenously every hour 100 mL/hr, intravenous, Continuous, Starting on 05/29/24 at 1600 Start: 05-28-2024 take 20 mL intraveno usly every twelve hours sodium chloride 0.9 % flush 20 mL Start: 05-27-2024 3 mL, intraven ous, Every 12 hours scheduled, First dose on Ailin 05/27/24 at 2100, Scheduling/ADT Start: 05-27-2024 10 mL, intrave nous, As needed, line care, Starting on 05/29/24 at 1139 Start: 05-27-2024 End: 05-27-2024 1,000 mL, intravenous, at 98 4 mL/hr, Administer over 61 Minutes, Once, On Ailin 05/27/24 at 1335, For 1 dose Start: 07-03-2023 End: 07-04-2023 take 10 mL [...] in sodium chloride 0.9 % 100 mL IVPB (1 source) Start: 05-29-2024 20 mmol, intra venous, at 26.7 mL/hr, Administer over 4 Hours, As needed, for phosphorus level 2.3 mg/dL or less., Starting on 05/29/24 at 1415, Administer over 4 hours via dedicated line (central line). If administered, recheck phosphorus level 4 hours after infusion complete. Infuse using central line access. sodium phosphate 20 mmol in sodium chloride 0.9 % 250 mL IVPB (2 sources) Start: 05-29-2024 sodium phospha te 20 mmol in sodium chloride 0.9 % 250 mL IVPB Start: 07-02-2023 End: 07-04-2023 sodium phosphate 20 mmol in sodium chloride 0.9 % 250 mL IVPB Completed/Discontinued Medications Medication Drug Class(es) Dates Sig (Normalized) Sig (Original) acetaminophen 325 mg / HYDROcodone bitartrate 5 mg oral tablet (1 source) Opioid Agonist Start: 08-01-2020 End: 08-01-2020 HYDROcodone-acetam inophen (NORCO) 5-325 MG per tablet 1 tablet Start: 08-01-2020 End: 08-01-2020 HYDROcodone-acetaminophen (N ORCO) 5-325 MG per tablet 1 tablet [id number] actuat albuterol 0.09 mg/actuat metered dose inhaler (16 sources) beta2-Adrenergic Agonist Start: 08-28-2023 End: 10-19-2024 take 2 puff(s) by inhalation every four hours for wheezing albuterol HFA 90 mcg/act inhaler Indications: Mild intermittent asthma without complication (CMS/HCC) Inhale 2 puffs every 4 (four) hours if needed for wheezing 18 g 2 08/28/2023 10/19/2024 Discontinued End: 05-27-2024 take 2 puff(s) by inhalation every six hours as needed for wheezing albuterol (PROVENTIL HFA;VENTOLIN HFA) 90 mcg/actuation inhaler Inhale 2 puffs every 6 (six) hours as needed for wheezing. 05/27/2024 Discontinued (Patient Stopped On Own) amphetamine aspartate 7.5 mg / amphetamine sulfate 7.5 mg / dextroamphetamine saccharate 7.5 mg / dextroamphetamine sulfate 7.5 mg oral tablet (13 sources) Central Nervous System Stimulant End: 05-27-2024 take 1 tablet by mouth in the morning dextroamphetamine-amphetamine (ADDERALL) 30 mg tablet Take 1 tablet (30 mg total) by mouth in the morning. 05/27/2024 Discontinued (Patient Stopped On Own) End: 05-27-2024 take 1 capsule by mouth once daily in the morning amphetamine-dextroamphetamine XR (ADDERA LL XR) 30 mg 24 hr capsule Indications: attention-deficit hyperactivity disorder Take 1 capsule (30 mg total) by mouth every morning Indications: attention deficit disorder with hyperactivity. 05/27/2024 Discontinued (Patient Stopped On Own) take 1 tablet by mitchell th once daily dextroamphetamine-amphetamine (ADDERALL) 20 mg tablet Take 20 mg by mouth daily . 0 Active cefTRIAXone (ROCEPHIN) 1000 mg IVPB in 50 mL D5W minibag (1 source) Start: 07-30-2020 End: 08-01-2020 cefTRIAXone (ROCEPHIN) 1000 mg IVPB in 50 mL D5W minibag clobetasol propionate 0.5 mg/ml topical lotion (13 sources) Corticosteroid Start: 10-09-2023 End: 10-19-2024 Clobetasol Propionate 0.05 % lotion Indications: Plaque psoriasis (CMS/HCC) Apply 1 Application topically in the morning and 1 Application before bedtime. 118 mL 3 10/09/2023 10/19/2024 Discontinued D5 % and 0.45 % sodium chloride [...] physician if patient refuses. Indication: VTE Prophylaxis escitalopram 5 mg oral tablet (13 sources) Serotonin Reuptake Inhibitor Start: 09-16-2023 End: 10-19-2024 take 1 tablet by mouth once daily escitalopram (Lexapro) 5 MG tablet Indications: Generalized anxiety disorder (CMS/HCC) Take 1 tablet (5 mg) by mouth Daily 30 tablet 11 09/16/2023 10/19/2024 Discontinued 2 ml famotidine 10 mg/ml injection (1 source) Histamine-2 Receptor Antagonist Start: 07-30-2020 End: 08-01-2020 famotidine (PEPCID) injection 20 mg gabapentin 800 mg oral tablet (16 sources) Anti-epileptic Agent Start: 10-23-2023 End: 10-19-2024 take 1 tablet by mouth three times daily at bedtime gabapentin (Neurontin) 800 MG tablet Indications: Fibromyalgia take 1 tablet by mouth three times a day IN THE MORNING IN THE EVENING and BEFORE BEDTIME 90 tablet 2 10/23/2023 10/19/2024 Discontinued 250 ml glucose 50 mg/ml / sodium chloride 4.5 mg/ml injection (3 sources) Start: 07-02-2023 End: 07-02-2023 dextrose 5 % and sodium chloride 0.45 % infusion Start: 07-31-2020 End: 07-31-2020 dextrose 5 % and 0.45 % sodi um chloride infusion Start: 07-29-2020 End: 07-30-2020 dextrose 5 % and 0.45 % sodi um chloride infusion guanFACINE 1 mg oral tablet (13 sources) Central alpha-2 Adrenergic Agonist Start: 10-02-2023 End: 10-19-2024 take 1 tablet by mouth at bedtime guanFACINE (Tenex) 1 MG tablet Indications: ADD (attention deficit disorder) without hyperactivity Take 1 tablet (1 mg) by mouth at bedtime 30 tablet 3 10/02/2023 10/19/2024 Discontinued hydrALAZINE hydrochloride 25 mg oral tablet (3 sources) Arteriolar Vasodilator Start: 06-18-2022 End: 05-27-2024 hydrALAZINE (APRESOLINE) 25 mg tablet Take 2 tablets (50 mg total) by mouth every 12 (twelve) hours. 30 tablet 06/18/2022 05/27/2024 Discontinued (Patient Stopped On Own) insulin lispro (HumaLOG) injection 2-10 Units (2 [...] End: 06-08-2020 insulin regular in 0.9 % NaC l (MYXREDLIN) 100 Units/100 mL infusion 100 ml insulin, regular, human 1 unt/ml injection (16 sources) Insulin Start: 05-27-2024 End: 05-29-2024 0.2-54 Units/hr (0.2-54 mL/hr), intravenous, Continuous, Starting on Ailin 05/27/24 at 1430, For 2 days, Insulin Infusion Orders: Initiating Infusion: Use the [...] hours if correction scale given for meal. Look-alike/sound-alike medication. Verify indication for use. Start: 07-02-2023 End: 07-04-2023 insulin regular (MYXREDLIN) infusion 100 units/100 mL in sodium chloride 0.9% (1 unit/mL premix) insulin regular (HumuLIN R,NovoLIN R) 100 UNIT/ML injection Inject under the skin in the morning and at noon and in the evening. Inject with meals. Active insulin regular (HumuLIN R,NovoLIN R) 100 UNIT/ML injection Inject under the skin 3 (three) times a day with meals Active iohexoL (OMNIPAQUE) 300 mg iodine/mL 100 mL (1 source) Start: 05-29-2024 End: 05-29-2024 100 mL, intravenous, Once in imaging, contrast, Starting on 05/29/24 at 1139, For 1 dose, VESICANT (RED) 1 ml ketorolac tromethamine 30 mg/ml cartridge (1 source) Nonsteroidal Anti-inflammatory Drug, Cyclooxygenase Inhibitor Start: 07-30-2020 End: 08-01-2020 ketorolac (TORADOL) injection 15 mg lansoprazole 30 mg delayed release oral capsule (13 sources) Proton Pump Inhibitor End: 10-19-2024 take 1 capsule by mouth before mealtime lansoprazole (Prevacid) [address] capsule Take 30 mg by mouth in the morning. Take before meals. Do not crush or chew.. 10/19/2024 Discontinued lidocaine 40 mg/ml topical cream (13 sources) Antiarrhythmic, Amide Local Anesthetic Start: 08-28-2023 End: 10-19-2024 lidocaine (LMX) 4 % cream Indications: Type 1 diabetes mellitus with polyneuropathy (CMS/HCC) Apply 1 application topically 4 (four) times a day as needed for mild pain 60 g 08/28/2023 10/19/2024 Discontinued 1 ml LORazepam 2 mg/ml injection (1 source) Benzodiazepine Start: 05-27-2024 End: 05-27-2024 take 1 mg intravenously once as needed for anxiety 1 mg, intravenous, Once as needed, anxiety, nausea, vomiting, Starting on Ailin 05/27/24 at 2146, For 1 dose, Look-alike/sound-a like medication - verify indication for use;IV use requires increased monitoring of HR,BP,Respirations and Pulse Oximetry;For IV-dilute with equal volume PF sod chloride, Indication: Other, Indication: n/v magnesium sulfate IVPB 2000 mg/50 mL in iso-osmotic water (40 mg/mL premix) (1 source) Start: 07-02-2023 End: 07-04-2023 magnesium sulfate IVPB 2000 mg/50 mL in iso-osmotic water (40 mg/mL premix) metoclopramide 10 mg oral tablet (13 sources) Dopamine-2 Receptor Antagonist Start: 10-02-2023 End: 10-19-2024 metoclopramide (Reglan) 10 MG tablet Indications: Diabetic gastroparesis associated with type 1 diabetes mellitus (CMS/HCC) Take 1 tablet (10 mg) by mouth in the morning and 1 tablet (10 mg) at noon and 1 tablet (10 mg) in the evening and 1 tablet (10 mg) before bedtime. 120 tablet 3 10/02/2023 10/19/2024 Discontinued 5 ml metoprolol tartrate 1 mg/ml injection (1 source) beta-Adrenergic Umu Start: 07-30-2020 End: 07-30-2020 metoprolol (LOPRESSOR) injection 5 mg Start: 07-30-2020 End: 07-30-2020 metoprolol (LOPRESSOR) injec tion 5 mg 1000 ml potassium chloride 0.02 meq/ml / sodium chloride 9 mg/ml injection (2 sources) Start: 05-27-2024 End: 05-28-2024 take 250 mg intravenously every hour 250 mL/hr, intravenous, Continuous, Starting on Ailin 05/27/24 at 1645, For 1 day, For blood glucose greater than 250mg/dL. Once IV fluid is changed to dextrose-containing formulation, DO NOT change to vse-[id number] IV fluid if blood glucose exceeds 250 mg/dL. Start: 06-08-2020 End: 06-10-2020 sodium chloride 0.9 [...] chloride 0.9 % (NS) 250 mL IVPB QUEtiapine 25 mg oral tablet (13 sources) Atypical Antipsychotic Start: 10-02-2023 End: 10-19-2024 take 1 tablet by mouth at bedtime QUEtiapine (SEROquel) 25 MG tablet Indications: Mixed bipolar I disorder (CMS/HCC) , Primary insomnia Take 1 tablet (25 mg) by mouth at bedtime 30 tablet 3 10/02/2023 10/19/2024 Discontinued 10 ml sodium bicarbonate 84 mg/ml injection (3 sources) Start: 07-29-2020 End: 07-29-2020 sodium bicarbonate 8.4 % injection 100 mEq Start: 07-29-2020 End: 07-29-2020 sodium bicarbonate 8.4 % inj ection 50 mEq Start: 07-29-2020 End: 07-29-2020 sodium bicarbonate 8.4 % inj ection sodium phosphate 30 mmol in sodium chloride 0.9 % 250 mL IVPB (2 sources) Start: 07-04-2023 End: 07-04-2023 sodium phosphate 30 mmol in sodium chloride 0.9 % 250 mL IVPB Start: 07-02-2023 End: 07-03-2023 sodium phosphate 30 mmol in sodium chloride 0.9 % 250 mL IVPB tiZANidine 4 mg oral capsule (16 sources) Central alpha-2 Adrenergic Agonist Start: 11-06-2023 End: 10-19-2024 take 1 capsule by mouth in the morning, then take 1 capsule by mouth in the evening, then take 1 capsule by mouth at bedtime tiZANidine (Zanaflex) 4 MG capsule Indications: Fibromyalgia Take 1 capsule (4 mg) by mouth in the morning and 1 capsule (4 mg) in the evening and 1 capsule (4 mg) before bedtime. 60 capsule 11/06/2023 10/19/2024 Discontinued End: 05-27-2024 take 1 tablet by mouth every eight hours as needed tiZANidine (ZANAFLEX) 4 mg tablet Take 1 tablet (4 mg total) by mouth every 8 (eight) hours as needed for muscle spasms. 05/27/2024 Discontinued (Patient Stopped On Own) Problems Active Problems Problem Classification Problem Date Documented Da te Episodic/Chronic Administrative/social admission (6 sources) Patient encounter status; Translations: [Dietary counseling and surveillance] 04-12-2024 Episodic Anxiety disorders (20 sources) Generalized anxiety disorder; Translations: [Generalized anxiety disorder] Onset: 09-17-2022 06-17-2023 Chronic Asthma (15 sources) Mild intermittent asthma, uncomplicated; Translations: [Mild intermittent asthma] Onset: 09-17-2022 06-17-2023 Chronic Attention-deficit, conduct, and disruptive behavior disorders (1 source) Attention-deficit hyperactivity disorder, predominantly inattentive type; Translations: [ADHD INATTENTIVE TYPE] Onset: 09-17-2022 Chronic Cardiac dysrhythmias (1 source) Sick sinus syndrome; Translations: [Sick sinus syndrome] Onset: 07-02-2023 Chronic Cardiac dysrhythmias (1 source) Tachycardia, unspecified; Translations: [Tachycardia, unspecified] Onset: 07-02-2023 Episodic Coronary atherosclerosis and other heart disease (13 sources) History of non-ST segment elevation myocardial infarction; Translations: [Old myocardial infarction] Onset: 01-18-2025 01-18-2025 Chronic Diabetes mellitus with complications (20 sources) Type 1 diabetes mellitus with ketoacidosis without coma; Translations: [Type 2 diabetes mellitus with ketoacidosis without coma] Onset: 07-03-2018 Resolved: 02-08-2025 Chronic Diabetes mellitus with complications (4 sources) Type 2 diabetes mellitus with ketoacidosis without coma; Translations: [TYPE 2 DM KETOACIDOSIS W/O COMA] Onset: 07-29-2020 Diabetes mellitus without complication (13 sources) Type 1 diabetes mellitus; Translations: [Patient encounter status] Onset: 06-07-2020 06-07-2020 Chronic Diabetes mellitus without complication (7 sources) Presence of insulin pump (external) (internal); Translations: [Insulin pump present] Onset: 09-17-2022 04-12-2024 Episodic Diabetes or abnormal glucose tolerance complicating ; childbirth; or the puerperium (14 sources) Pre-existing type 1 diabetes mellitus in ; Translations: [Pre-existing type 1 diabetes mellitus, in , first trimester] Onset: 01-18-2025 01-18-2025 Chronic Disorders usually diagnosed in infancy, childhood, or adolescence (20 sources) Attention deficit hyperactivity disorder, predominantly inattentive type; Translations: [Other specified behavioral and emotional disorders with onset usually occurring in childhood and adolescence] Onset: 06-16-2023 06-16-2023 Chronic Esophageal disorders (15 sources) Gastro-esophageal reflux disease without esophagitis; Translations: [Gastroesophageal reflux disease] Onset: 09-17-2022 06-17-2023 Chronic Fracture of lower limb (4 sources) Closed fracture of base of fifth metatarsal bone ; Translations: [Displaced fracture of fifth metatarsal bone, right foot, initial encounter for closed fracture] 04-02-2024 Episodic Hemorrhage during ; abruptio placenta; placenta previa (1 source) Threatened ; Translations: [Threatened ] Onset: 02-27-2025 Episodic Miscellaneous mental health disorders (14 sources) Primary insomnia; Translations: [Primary insomnia] Onset: 10-02-2023 10-02-2023 Chronic Mood disorders (20 sources) Bipolar disorder, currently in remission, most recent episode unspecified; Translations: [Mixed bipolar I disorder] Onset: 09-17-2022 06-17-2023 Chronic Nausea and vomiting (2 sources) Nausea; Translations: [Nausea] Onset: 07-04-2023 Episodic Nutritional deficiencies (3 sources) Deficiency of macronutrients; Translations: [Unspecified severe protein-calorie malnutrition] Onset: 04-03-2020 03-01-2021 Chronic Other aftercare (1 source) termite exterminator (current) use of insulin; Translations: [INTERMEDIATE CURRENT USE OF INSULIN] Onset: 09-17-2022 Episodic Other aftercare (1 source) Other terminal operations manager (current) drug therapy; Translations: [OTH PERFORMANCE IMPROVEMENT ANALYST CURRENT DRUG THERAPY] Onset: 09-17-2022 Episodic Other aftercare (6 sources) Long-term current use of insulin; Translations: [FPC (current) use of insulin] 04-12-2024 Episodic Other complications of (2 sources) Vomiting of , unspecified; Translations: [Unspecified vomiting of , unspecified as to episode of care or not applicable] Onset: 01-18-2025 01-18-2025 Episodic Other complications of (10 sources) History of delivery of macrosomal ; Translations: [Supervision of with other poor reproductive or obstetric history, unspecified trimester] Onset: 01-18-2025 01-18-2025 Episodic Other complications of (1 source) Cystitis of ; Translations: [Infections of bladder in , first trimester] 01-25-2025 Episodic Other complications of (7 sources) Urinary tract infection in ; Translations: [Unspecified infection of urinary tract in , first trimester] Onset: 02-08-2025 02-08-2025 Episodic Other connective tissue disease (2 sources) Pain in right foot; Translations: [Pain in right foot] 04-02-2024 Episodic Other female genital disorders (1 source) Vaginal bleeding Onset: 02-27-2025 Chronic Other hematologic conditions (1 source) Other specified abnormalities of plasma proteins; Translations: [Other specified abnormalities of plasma proteins] Onset: 03-18-2023 Episodic Other inflammatory condition of skin (1 source) Psoriasis vulgaris; Translations: [PSORIASIS VULGARIS] Onset: 09-17-2022 Chronic Other inflammatory condition of skin (20 sources) Plaque psoriasis; Translations: [Psoriasis vulgaris] Onset: [...] Translations: [METABOLIC ENCEPHALOPATHY] Onset: 08-01-2020 Chronic Other and delivery including normal (5 sources) care status; Translations: [Encounter for supervision of normal , unspecified, first trimester] Onset: 01-18-2025 01-18-2025 Episodic Pneumonia (except that caused by tuberculosis or sexually transmitted disease) (1 source) Pneumonia, unspecified organism; Translations: [PNEUMONIA UNSPECIFIED ORGANISM] Onset: 08-01-2020 Episodic Residual codes; unclassified (1 source) Patient's unintentional underdosing of medication regimen for other reason; Translations: [PT UNINTENT UNDRDOS MED OTH REASON] Onset: 09-17-2022 Episodic Residual codes; unclassified (1 source) History of gestational hypertension; Translations: [Personal history of other complications of , childbirth and the puerperium] 01-18-2025 Episodic Residual codes; unclassified (1 source) Gestation period, 9 weeks; Translations: [9 weeks gestation of ] 02-16-2025 Episodic Residual codes; unclassified (1 source) Personal history of other complications of , childbirth and the puerperium; Translations: [Personal history of other complications of , childbirth and the puerperium] Onset: 01-21-2025 Episodic Screening and history of mental health and substance abuse codes (1 source) Personal history of nicotine dependence; Translations: [PERSONAL HISTORY OF NICOTINE DEPEND] Onset: 09-17-2022 Episodic Substance-related disorders (20 sources) Opioid abuse; Translations: [Opioid abuse, uncomplicated] Onset: 11-24-2020 10-02-2023 Chronic Substance-related disorders (1 source) Other psychoactive substance abuse, in remission; Translations: [OTH PSYCHOACT SBSTNC ABUSE REMISS] Onset: 08-01-2020 Unclassified (5 sources) CONTACT W/AND (SUSP) EXPOS COVID-19; Translations: [CONTACT W/AND (SUSP) EXPOS COVID-19] Onset: 08-01-2020 Unclassified (1 source) DKA Onset: 07-02-2023 Unclassified (1 source) Initial Visit Onset: 01-18-2025 Unclassified (1 source) High Blood Sugar - Symptomatic Onset: 03-02-2024 Unclassified (1 source) High BS Onset: 03-02-2024 Past or Other Problems Problem Classification Problem Date Documented Date Episodic/Chronic Acute myocardial infarction (10 sources) Myocardial infarction; Translations: [Non-ST elevation (NSTEMI) myocardial infarction] Onset: 03-25-2023 Resolved: 02-08-2025 01-18-2025 Chronic Mood disorders (13 sources) Mood disorders Onset: 07-03-2023 Resolved: 02-15-2025 07-03-2023 Other connective tissue disease (20 sources) Fibromyalgia; Translations: [Fibromyalgia] Onset: 06-17-2023 06-17-2023 Episodic Other screening for suspected conditions (not mental disorders or infectious disease) (4 sources) Abnormal electrocardiogram [ECG] [EKG]; Translations: [Patient encounter status] Onset: 07-02-2023 02-16-2025 Episodic Otitis media and related conditions (14 sources) Acute serous otitis media of left ear; Translations: [Acute serous otitis media, left ear] Onset: 06-17-2023 Resolved: 10-02-2023 10-02-2023 Episodic Residual codes; unclassified (1 source) Other specified personal risk factors, not elsewhere classified; Translations: [Other specified personal risk factors, not elsewhere classified] Onset: 05-27-2024 Episodic Respiratory failure; insufficiency; arrest (adult) (3 sources) Acute respiratory failure; Translations: [Acute respiratory failure, unspecified whether with hypoxia or hypercapnia] Onset: 01-24-2021 01-24-2021 Episodic Skin and subcutaneous tissue infections (3 sources) Furuncle of groin; Translations: [Furuncle of groin] Onset: 11-24-2020 11-24-2020 Episodic Unclassified (1 source) CONTACT W/AND (SUSP) EXPOS COVID-19; Translations: [CONTACT W/AND (SUSP) EXPOS COVID-19] Onset: 03-18-2022 Results Test Name Value Interpretation Reference Range Facility ABO/RHon 02-27-2025 ABO_INTEP A Normal [facility] Comment on above: Performed By: #### V BG #### [facility] ([id number]) [address] [place] [address] [id number] RH_INTEP Positive Normal [facility] Comment on above: Performed By: #### V BG #### [facility] ([id number]) [address] [place] [address] [phone] BASIC METABOLIC PANELon 08-3 Anion gap [Moles/Vol] 6 mmol/L Normal 5-15 [facility] Comment on above: Performed By: #### V BG #### [facility] ([id number]) [address] [place] [address] [phone] Calcium [Mass/Vol] 8.6 mg/dL Normal 8.5-10.5 [facility] Comment on above: Performed By: #### V BG #### [facility] ([id number]) [address] [place] [address] [id number] Chloride [Moles/Vol] 105 mmol/L Normal 98-109 [facility] Comment on above: Performed By: #### V BG #### [facility] ([id number]) [address] [place] [address] 22001 CO2 [Moles/Vol] 24 mmol/L Normal 22-32 [facility] Comment on above: Performed By: #### V BG #### [facility] ([id number]) [address] [place] [address] [phone] Creatinine [Mass/Vol] 0.64 mg/dL Normal 0.40-1.00 [facility] Comment on above: Result Comment: METH OD TRACEABLE TO IDMS STANDARD Performed By: #### V BG #### [facility] ([id number]) [address] [place] [address] 06454 EGFR (CKD-EPI) NON-RACE DEPENDENT >^90 Normal >=60 [facility] Comment on above: Result Comment: eGFR not reported due to non-numeric value for Creatinine. Reported eGFR is based on the CKD-EPI 2021 equation that does not use a race coefficient. Performed By: #### V BG #### [facility] ([id number]) [address] [place] [address] 05685 Glucose [Mass/Vol] 269 mg/dL High 65-99 [facility] Comment on above: Performed By: #### V BG #### [facility] ([id number]) [address] [place] [address] 12770 Potassium [Moles/Vol] 4.0 mmol/L Normal 3.5-5.0 [facility] Comment on above: Performed By: #### V BG #### [facility] ([id number]) [address] [place] [address] [phone] Sodium [Moles/Vol] 135 mmol/L Normal 134-146 [facility] Comment on above: Performed By: #### V BG #### [facility] ([id number]) [address] [place] [address] [phone] Urea nitrogen [Mass/Vol] 15 mg/dL Normal 5-23 [facility] Comment on above: Performed By: #### V BG #### [facility] ([id number]) [address] [place] [address] [id number] CBC WITH AUTO DIFFERENTIALon 02-27-2025 BASOPHILS ABSOLUTE COUNT (10*3/UL) BY AUTOMATED COUNT 0.0 10*3/uL Normal 0.0-0.2 [facility] Comment on above: Performed By: #### V BG #### [facility] ([id number]) [address] [place] [address] 01050 BASOPHILS RELATIVE PERCENT BY AUTOMATED COUNT 0.6 % Normal [facility] Comment on above: Performed By: #### V BG #### [facility] ([id number]) [address] [place] [address] 72100 CELLAVISION DIFFERENTIAL TYPE AUTOMATED DIFFERENTIAL Normal [facility] Comment on above: Performed By: #### V BG #### [facility] ([id number]) [address] [place] [address] 05766 Eosinophils (Bld) [#/Vol] 0.1 10*3/uL Normal 0.0-0.4 [facility] Comment on above: Performed By: #### V BG #### [facility] ([id number]) [address] [place] [address] 29062 EOSINOPHILS RELATIVE PERCENT BY AUTOMATED COUNT 1.3 % Normal [facility] Comment on above: Performed By: #### V BG #### [facility] ([id number]) [address] [place] [address] 03461 Erythrocyte distribution width (RBC) [Ratio] 15.2 % High 11.5-15 [facility] Comment on above: Performed By: #### V BG #### [facility] ([id number]) [address] [place] [address] 94521 Hematocrit (Bld) [Volume fraction] 37.1 % Normal 35-47 [facility] Comment on above: Performed By: #### V BG #### [facility] ([id number]) [address] [place] [address] 12061 Hemoglobin (Bld) [Mass/Vol] 12.4 g/dL Normal 11.7-15. 5 [facility] Comment on above: Performed By: #### V BG #### [facility] ([id number]) [address] [place] [address] 81487 LYMPHOCYTES ABSOLUTE COUNT (10*3/UL) BY AUTOMATED COUNT 2.1 10*3/uL Normal 1.0-3.5 [facility] Comment on above: Performed By: #### V BG #### [facility] ([id number]) [address] [place] [address] 34953 LYMPHOCYTES RELATIVE PERCENT BY AUTOMATED COUNT 24.1 % Normal [facility] Comment on above: Performed By: #### V BG #### [facility] ([id number]) [address] [place] [address] 94632 MCH (RBC) [Entitic mass] 25.9 pg Low 27-34 [facility] Comment on above: Performed By: #### V BG #### [facility] ([id number]) [address] [place] [address] 46669 MCHC (RBC) [Mass/Vol] 33.5 g/dL Normal 32-36 [facility] Comment on above: Performed By: #### V BG #### [facility] ([id number]) [address] [place] [address] 11651 MCV (RBC) [Entitic vol] 77 fL Low 80-100 P [facility] Comment on above: Performed By: #### V BG #### [facility] ([id number]) [address] [place] [address] 50139 MONOCYTES ABSOLUTE COUNT (10*3/UL) BY AUTOMATED COUNT 0.5 10*3/uL Normal 0.0-0.9 [facility] Comment on above: Performed By: #### V BG #### [facility] ([id number]) [address] [place] [address] 74298 MONOCYTES RELATIVE PERCENT BY AUTOMATED COUNT 5.5 % Normal [facility] Comment on above: Performed By: #### V BG #### [facility] ([id number]) [address] [place] [address] 64235 NEUTROPHILS ABSOLUTE COUNT BY AUTOMATED COUNT 5.9 10*3/uL Normal 1.5-6.6 [facility] Comment on above: Performed By: #### V BG #### [facility] ([id number]) [address] [place] [address] 97640 NEUTROPHILS RELATIVE PERCENT BY AUTOMATED COUNT 68.5 % Normal [facility] Comment on above: Performed By: #### V BG #### [facility] ([id number]) [address] [place] [address] 31254 Platelet mean volume (Bld) [Entitic vol] 7.9 fL Normal 7-12 [facility] Comment on above: Performed By: #### V BG #### [facility] ([id number]) [address] [place] [address] 97638 Platelets (Bld) [#/Vol] 289 10*3/uL Normal 150-450 [facility] Comment on above: Performed By: #### V BG #### [facility] ([id number]) [address] [place] [address] 59349 RBC COUNT 4.80 X10E12/L Normal 3.8-5.2 [facility] Comment on above: Performed By: #### V BG #### [facility] ([id number]) [address] [place] [address] WBC (Bld) [#/Vol] 8.5 10*3/uL Normal 4-11 [facility] Comment on above: Performed By: #### V BG #### [facility] ([id number]) [address] [place] [address] 69386 HCG-BETA, SERUMon 02-27-2025 HCG.beta subunit Qn 9271 m[IU]/mL Normal [facility] Comment on above: Order Comment: WEEKS (SINCE LMP) MIU/mL3 WEEKS 5 - 504 WEEKS 5 - 4265 WEEKS 18 - 7,3406 WEEKS 1,080 - 56,5007-8 WEEKS 7,650 - 229,0009-12 WEEKS 25,700 - 288,91286-30 WEEKS 13,300 - 254,11584-59 WEEKS 4,060 - 165,10595-13 WEEKS 3,640 - 117,000MALES AND NON- FEMALES - <5 MIU/mLThis test has been FDA approved for use inpregnancy only. Elevated levels are notnecessarily diagnostic for trophoblasticor nontrophoblastic neoplasms. Performed By: #### V BG #### [facility] ([id number]) [address] [place] [address] 12210 POCT NURSING URINE MACROSCOP IC UAon 02-27-2025 BILIRUBIN NAZ Negative Normal Negative [facility] Comment on above: Performed By: #### V BG #### [facility] ([id number]) [address] [place] [address] 46074 BLOOD/HGB NAZ Large Abnormal Negative [facility] Comment on above: Performed By: #### V BG #### [facility] ([id number]) [address] [place] [address] 14118 GLUCOSE NAZ >=1000 mg/dL Abnormal Negative [facility] Comment on above: Performed By: #### V BG #### [facility] ([id number]) [address] [place] [address] 42893 KETONES NAZ Negative Normal Negative [facility] Comment on above: Performed By: #### V BG #### [facility] ([id number]) [address] [place] [address] 53347 LEUKOCYTE ESTERASE NAZ Negative Normal Negative [facility] Comment on above: Performed By: #### V BG #### [facility] ([id number]) [address] [place] [address] 84529 NITRITE NAZ Negative Normal Negative [facility] Comment on above: Performed By: #### V BG #### [facility] ([id number]) [address] [place] [address] 65275 PH NAZ 6.0 Normal 5.0, 6.0, 6.5, 7.0, 7.5, 8.0, 8.5, 5.5 [facility] Comment on above: Performed By: #### V BG #### [facility] ([id number]) [address] [place] [address] 71965 PROTEIN NAZ Trace Abnormal Negative [facility] Comment on above: Performed By: #### V BG #### [facility] ([id number]) [address] [place] [address] [place] [address] SPECIFIC GRAVITY NAZ 1.020 Normal 1.010, 1.015, 1.020, 1.025 [facility] Comment on above: Performed By: #### V BG #### [facility] ([id number]) [address] [place] [address] UROBILINOGEN NAZ 0.2 E.U./dL Normal [facility] Comment on above: Performed By: #### V BG #### [facility] ([id number]) [address] [place] [address] POCT , URINE (NUCG) on 02-27-2025 Beta HCG ( test) Ql (U) Positive Abnormal Negative, Indeterminate [facility] Comment on above: Performed By: #### V BG #### [facility] ([id number]) [address] [place] [address] 43516 URINE CULTUREon 02-27-2025 Bacteria identified Cx Nom (U) CULTURE RESULTS <10,000 ORGANISMS/mL NORMAL URO GENITAL SHARONDA Normal [facility] Comment on above: Performed By: #### V BG #### [facility] ([id number]) [address] [place] [address] 91563 US PREG LESS THAN 14 WKS WIT H TRANSVAGINALon 02-27-2025 US PREG LESS THAN 14 WKS WITH TRANSVAGINAL US PREG LESS THAN 14 WKS WITH TRANSVAGINAL CLINICAL HISTORY: Dates and viability Comparison: None FINDINGS: * Single intrauterine at 9 weeks 1 days. [place]-rump length 2.6 cm on. No heart tones visualized. Significant discrepancy in dates as compared with the 01/24/2025. Findings consistent with demise. * The gestational sac is normal in morphology. Gestational sac fluid volume is normal for this very early gestational age. Placental morphology and location cannot be determined based on this early gestational age. * Maternal ovaries notable for complex cyst right ovary measuring 2.3 x 1.9 x 1.3 cm. This is likely a corpus luteal cyst. IMPRESSION: * Findings highly worrisome for intrauterine demise. No heart tones visualized. Gestational age 9 weeks 1 day 05 Finalized by Fernando Boucher MD on 02/27/2025 8:47 PM Normal [facility] CHLAMYDIA/GONORRHOEAE BY PCR , FLUIDon 02-16-2025 CHLAMYDIA/GONORRHOEAE BY PCR, FLUID CHLAMYDIA PCR, [place] Negative Chlamydia trachomatis not detected by nucleic acid amplification. This does not exclude the possibility of infection because results are dependent on adequate specimen collection. GONORRHOEAE PCR, [place] Negative Neisseria gonorrhoeae not detected by nucleic acid amplification. This does not exclude the possibility of infection because results are dependent on adequate specimen collection. Normal [facility] Comment on above: Performed By: #### C GTPCR #### [facility] ([facility]) [address] [place] [address] VIR HIGH RISK HPV W/GENOon 02-16 HPV 16 Negative Normal Negative [facility] Comment on above: Performed By: #### H PV #### [facility] ([facility]) [address] [place] [address] VIR HPV 18 Negative Normal Negative [facility] Comment on above: Performed By: #### H PV #### [facility] ([facility]) [address] [place] [address] VIR OTHER HIGH RISK HPV Negative Normal Negative [facility] Comment on above: Result Comment: HPV types 31, 33, 35, 39, 45, 52, 56, 58, 59, 66, and 68 DNA were undetectable. Performed By: #### H PV #### [facility] ([facility]) [address] [place] [address] VIR URINE CULTUREon 02-16-2025 Bacteria identified Cx Nom (U) CULTURE RESULTS NO GROWTH AT <1000 CFU/mL Normal [facility] Comment on above: Performed By: #### U C #### [facility] ([facility]) [address] [place] [address] VIR US PREG LESS THAN 14 WKS WIT H TRANSVAGINALon 01-24-2025 US PREG LESS THAN 14 WKS WITH TRANSVAGINAL US PREG LESS THAN 14 WKS WITH TRANSVAGINAL CLINICAL HISTORY: Dates and viability Comparison: None FINDINGS: * Single live IUP at 6 weeks 0 days. [place]-rump length 3.5 mm. Yolk sac visualized. Heart rate 116 beats minute. * The gestational sac is normal in morphology. Gestational sac fluid volume is normal for this very early gestational age. Placental morphology and location cannot be determined based on this early gestational age. * Right ovary 3.6 x 2.3 x 2.4 cm. * Left ovary measures 2.3 x 1.5 x 1.9 cm. IMPRESSION: * Single live IUP at 6 weeks 0 days. 41 Finalized by Fernando Boucher MD on 01/24/2025 3:06 PM Normal [facility] CBC (NO DIFF)on 01-21-2025 Erythrocyte distribution width (RBC) [Ratio] 14.2 % Normal 11.5-15 [facility] Comment on above: Performed By: #### B MP #### [facility] ([id number]) [address] [place] [address] 61547 Hematocrit (Bld) [Volume fraction] 38.3 % Normal 35-47 [facility] Comment on above: Performed By: #### B MP #### [facility] ([id number]) [address] [place] [address] 74528 Hemoglobin (Bld) [Mass/Vol] 12.5 g/dL Normal 11.7-15. 5 [facility] Comment on above: Performed By: #### B MP #### [facility] ([id number]) [address] [place] [address] 70833 MCH (RBC) [Entitic mass] 25.3 pg Low 27-34 [facility] Comment on above: Performed By: #### B MP #### [facility] ([id number]) [address] [place] [address] 26450 MCHC (RBC) [Mass/Vol] 32.6 g/dL Normal 32-36 [facility] Comment on above: Performed By: #### B MP #### [facility] ([id number]) [address] [place] [address] 02841 MCV (RBC) [Entitic vol] 78 fL Low 80-100 P [facility] Comment on above: Performed By: #### B MP #### [facility] ([id number]) [address] [place] [address] 45408 Platelet mean volume (Bld) [Entitic vol] 8.5 fL Normal 7-12 [facility] Comment on above: Performed By: #### B MP #### [facility] ([id number]) [address] [place] [address] 53384 Platelets (Bld) [#/Vol] 281 10*3/uL Normal 150-450 [facility] Comment on above: Performed By: #### B MP #### [facility] ([id number]) [address] [place] [address] 58331 RBC COUNT 4.92 X10E12/L Normal 3.8-5.2 [facility] Comment on above: Performed By: #### B MP #### [facility] ([id number]) [address] [place] [address] 50736 WBC (Bld) [#/Vol] 5.5 10*3/uL Normal 4-11 [facility] Comment on above: Performed By: #### B MP #### [facility] ([id number]) [address] [place] [address] 11287 COMPREHENSIVE METABOLIC PANE Galileo 01-21-2025 Albumin [Mass/Vol] 4.3 g/dL Normal 3.2-5.3 [facility] Comment on above: Performed By: #### V BG #### [facility] ([id number]) [address] [place] [address] 51693 ALP [Catalytic activity/Vol] 63 U/L Normal 39-130 [facility] Comment on above: Performed By: #### V BG #### [facility] ([id number]) [address] [place] [address] 74515 ALT [Catalytic activity/Vol] 17 U/L Normal <=31 [facility] Comment on above: Performed By: #### V BG #### [facility] ([id number]) [address] [place] [address] 02290 Anion gap [Moles/Vol] 14 mmol/L Normal 5-15 [facility] Comment on above: Performed By: #### V BG #### [facility] ([id number]) [address] [place] [address] 47147 AST [Catalytic activity/Vol] 12 U/L Normal <=41 [facility] Comment on above: Performed By: #### V BG #### [facility] ([id number]) [address] [place] [address] 22390 Bilirubin [Mass/Vol] 0.5 mg/dL Normal 0.3-1.2 [facility] Comment on above: Performed By: #### V BG #### [facility] ([id number]) [address] [place] [address] 30027 Calcium [Mass/Vol] 9.5 mg/dL Normal 8.5-10.5 [facility] Comment on above: Performed By: #### V BG #### [facility] ([id number]) [address] [place] [address] 40887 Chloride [Moles/Vol] 100 mmol/L Normal 98-109 [facility] Comment on above: Performed By: #### V BG #### [facility] ([id number]) [address] [place] [address] 73574 CO2 [Moles/Vol] 22 mmol/L Normal 22-32 [facility] Comment on above: Performed By: #### V BG #### [facility] ([id number]) [address] [place] [address] [place] [address] Creatinine [Mass/Vol] 0.60 mg/dL Normal 0.40-1.00 [facility] Comment on above: Result Comment: METH OD TRACEABLE TO IDMS STANDARD Performed By: #### V BG #### [facility] ([id number]) [address] [place] [address] 63458 EGFR (CKD-EPI) NON-RACE DEPENDENT >^90 Normal >=60 [facility] Comment on above: Result Comment: Repo rted eGFR is based on the CKD-EPI 2020 equation that does not use a race coefficient. Performed By: #### V BG #### [facility] ([id number]) [address] [place] [address] 18331 Glucose [Mass/Vol] 379 mg/dL High 65-99 [facility] Comment on above: Performed By: #### V BG #### [facility] ([id number]) [address] [place] [address] 13487 Potassium [Moles/Vol] 4.5 mmol/L Normal 3.5-5.0 [facility] Comment on above: Performed By: #### V BG #### [facility] ([id number]) [address] [place] [address] 47408 Protein [Mass/Vol] 7.0 g/dL Normal 6.0-8.0 [facility] Comment on above: Performed By: #### V BG #### [facility] ([id number]) [address] [place] [address] 21370 Sodium [Moles/Vol] 136 mmol/L Normal 134-146 [facility] Comment on above: Performed By: #### V BG #### [facility] ([id number]) [address] [place] [address] 36468 Urea nitrogen [Mass/Vol] 10 mg/dL Normal 5-23 [facility] Comment on above: Performed By: #### V BG #### [facility] ([id number]) [address] [place] [address] 31094 DRUG SCREEN, URINEon 025 AMPHETAMINE/METHAMP Negative Normal Negative [facility] Comment on above: Result Comment: AMPH /METH screening cut off = 1000 ng/mL Performed By: #### V BG #### [facility] ([id number]) [address] [place] [address] 50945 BARBITURATES Negative Normal Negative [facility] Comment on above: Result Comment: Landy iturates screening cut off value = 200 ng/mL Performed By: #### V BG #### [facility] ([id number]) [address] [place] [address] [place] [address] BENZODIAZEPINES Negative Normal Negative [facility] Comment on above: Result Comment: Lui odiazepines screening cut off value = 200 ng/mL Performed By: #### V BG #### [facility] ([id number]) [address] [place] [address] 99535 CANNABINOIDS Negative Normal Negative [facility] Comment on above: Result Comment: Jm abinoids/THC screening cut off value = 50 ng/mL Performed By: #### V BG #### [facility] ([id number]) [address] [place] [address] 47286 COCAINE METABOLITE Negative Normal Negative [facility] Comment on above: Result Comment: Coca ine screening cut off value = 300 ng/mL Performed By: #### V BG #### [facility] ([id number]) [address] [place] [address] 51924 ECSTASY Negative Normal Negative [facility] Comment on above: Result Comment: Ecst asy screening cut off value = 500 ng/mL Performed By: #### V BG #### [facility] ([id number]) [address] [place] [address] 83103 METHADONE Negative Normal Negative [facility] Comment on above: Result Comment: Meth adone screening cut off value = 300 ng/mL. Performed By: #### V BG #### [facility] ([id number]) [address] [place] [address] 98132 OPIATES Negative Normal Negative [facility] Comment on above: Result Comment: Opia andrea screening cut off value = 300 ng/mL This test is used for the detection of codeine, hydrocodone (>1000 ng/mL), morphine and hydromorphone (>900 ng/mL) in urine. Performed By: #### V BG #### [facility] ([id number]) [address] [place] [address] 40418 OXYCODONE Negative Normal Negative [facility] Comment on above: Result Comment: Oxyc odone screening cut off value = 300 ng/mL This test is used for the detection of oxycodone and oxymorphone in urine. Performed By: #### V BG #### [facility] ([id number]) [address] [place] [address] 66488 PHENCYCLIDINE Negative Normal Negative [facility] Comment on above: Result Comment: Phen cyclidine screening cut off value = 25 ng/mL Performed By: #### V BG #### [facility] ([id number]) [address] [place] [address] 91573 HCG-BETA, SERUMon 01-21-2025 [place] [address] m[IU]/mL Normal P [facility] Comment on above: Order Comment: WEEKS (SINCE LMP) MIU/mL3 WEEKS 5 - 504 WEEKS 5 - 4265 WEEKS 18 - 7,3406 WEEKS 1,080 - 56,5007-8 WEEKS 7,650 - 229,0009-12 WEEKS 25,700 - 288,00956-07 WEEKS 13,300 - 254,46356-29 WEEKS 4,060 - 165,34600-53 WEEKS 3,640 - 117,000MALES AND NON- FEMALES - <5 MIU/mLThis test has been FDA approved for use inpregnancy only. Elevated levels are notnecessarily diagnostic for trophoblasticor nontrophoblastic neoplasms. Performed By: #### V BG #### [facility] ([id number]) [address] [place] [address] 15822 HEMOGLOBIN A1Con 01-21-2025 Glucose [Mass/Vol] 315 mg/dL Normal [facility] Comment on above: Performed By: #### V BG #### [facility] ([id number]) [address] [place] [address] 53737 HbA1c (Bld) [Mass fraction] 12.6 % High 4.4-5.6 [facility] Comment on above: Result Comment: ADA Guidelines Result HgbA1c Normal : less than 5.7 % Prediabetes : 5.7 % to 6.4 % Diabetes : > 6.4 % Use with caution in patients with abnormal hemoglobin variants as the half-life of red blood cells and in vivo glycation rates are affected. Performed By: #### V BG #### [facility] ([id number]) [address] [place] [address] 56673 HEPATITIS PANEL, ACUTEon ANTI HCV W/PCR REFLX Non-Reactive Normal Non-Reactive [facility] Comment on above: Result Comment: If r ecent infection suspected, recommend repeat testing (>2 months). Pkaxey-rw-ulwsau ratio is <1.0. Performed By: #### V BG #### [facility] ([id number]) [address] [place] [address] 16462 HEPATITIS A IGM Non-Reactive Normal Non-Reactive [facility] Comment on above: Performed By: #### V BG #### [facility] ([id number]) [address] [place] [address] 74280 HEPATITIS B CORE IGM Non-Reactive Normal Non-Reactive [facility] Comment on above: Performed By: #### V BG #### [facility] ([id number]) [address] [place] [address] 62689 HEPATITIS B SURF AG Non-Reactive Normal Non-Reactive P [facility] Comment on above: Performed By: #### V BG #### [facility] ([id number]) [address] [place] [address] 38891 HIV 1 AND 2 AB/AG SCREEN (P2 4 AG)on 01-21-2025 HIV 1 AND 2 AB/AG SCREEN Non-Reactive Normal Non-React shreya [facility] Comment on above: Order Comment: This information has been disclosed to you from confidential records protected from disclosure by state law. You shall make no further disclosure of this information without the specific, written and informed release of the individual to whom it pertains, or as otherwise permitted by state law. A general authorization for the release of medical or other information is not sufficient for the purpose of the release of HIV test results or diagnoses. Performed By: #### V BG #### [facility] ([id number]) [address] [place] [address] 98412 PROTEIN CREAT RATIOon 2024 U/PRO/RETAIL PERSONAL BANKER RATIO CALC 0.12 Normal <=0.20 [facility] Comment on above: Order Comment: Nephr otic Syndrome is associated with ratios >3.5 Performed By: #### V BG #### [facility] ([id number]) [address] [place] [address] 13401 URINE CREATININE,RDM 33.70 mg/dL Normal [facility] Comment on above: Order Comment: Nephr otic Syndrome is associated with ratios >3.5 Performed By: #### V BG #### [facility] ([id number]) [address] [place] [address] 43652 URINE PROTEIN, RANDOM (MG/L) 40 mg/L Normal <120 [facility] Comment on above: Order Comment: Nephr otic Syndrome is associated with ratios >3.5 Performed By: #### V BG #### [facility] ([id number]) [address] [place] [address] 68680 RUBELLA ANTIBODY, IGGon 12-29 RUBELLA IGG 9 IU/mL Normal <9 [facility] Comment on above: Order Comment: Inter pretation< 8 NEGATIVE - considered not immune.8 - 9 EQUIVOCAL - consider retesting with new specimen.> 9 POSITIVE - considered immune. Performed By: #### V BG #### [facility] ([id number]) [address] [place] [address] 53286 SYPHILIS TOTAL(UNKNOWN SYPHI LIS STATUS)on 01-21-2025 SYPHILIS TOTAL <^0.2 Normal <=0.8 [facility] Comment on above: Order Comment: NON R EACTIVENo serologic evidence of infection to Treponema pallidum. Repeat testing may be considered in patients with suspected acute or primary syphilis in 2 to 4 weeks. Performed By: #### Leobardo BG #### [facility] ([id number]) [address] [place] [address] 47860 TYPE AND SCREENon 01-21-2025 ABO_INTEP A Normal [facility] Comment on above: Performed By: #### B MP #### [facility] ([id number]) [address] [place] [address] 95506 RH_INTEP Positive Normal [facility] Comment on above: Performed By: #### B MP #### [facility] ([id number]) [address] [place] [address] 41934 URIC ACIDon 01-21-2025 Urate [Mass/Vol] 3.0 mg/dL Normal 2.6-7.[address] [facility] Comment on above: Performed By: #### V BG #### [facility] ([id number]) [address] [place] [address] 30539 URINALYSISon 01-21-2025 Bilirubin Ql (U) Negative Normal Negative [facility] Comment on above: Performed By: #### B MP #### [facility] ([id number]) [address] [place] [address] 16550 BLOOD/HGB Negative Normal Negative [facility] Comment on above: Performed By: #### B MP #### [facility] ([id number]) [address] [place] [address] 92834 Color (U) Yellow Normal Yellow, Colorless [facility] Comment on above: Performed By: #### B MP #### [facility] ([id number]) [address] [place] [address] 06810 Glucose Ql (U) >1000 mg/dL Abnormal Negative [facility] Comment on above: Performed By: #### B MP #### [facility] ([id number]) [address] [place] [address] 14530 Ketones Ql (U) Negative Normal Negative [facility] Comment on above: Performed By: #### B MP #### [facility] ([id number]) [address] [place] [address] 56033 Leukocyte esterase Test strip Ql (U) Negative Normal Negative [facility] Comment on above: Result Comment: High Concentrations of Glucose May Decrease the Reactivity of the Dipstick Leukocyte Test Pad. Performed By: #### B MP #### [facility] ([id number]) [address] [place] [address] 64655 Nitrite Ql (U) Negative Normal Negative [facility] Comment on above: Performed By: #### B MP #### [facility] ([id number]) [address] [place] [address] 04771 PH,URINE 6.0 Normal 5.0-8.5 [facility] Comment on above: Performed By: #### B MP #### [facility] ([id number]) [address] [place] [address] 76846 Protein Ql (U) Negative Normal Negative [facility] Comment on above: Performed By: #### B MP #### [facility] ([id number]) [address] [place] [address] 29350 Specific gravity (U) [Rel density] 1.036 High 1.003-1.035 [facility] Comment on above: Performed By: #### B MP #### [facility] ([id number]) [address] [place] [address] 37503 TURBIDITY Clear Normal Clear [facility] Comment on above: Performed By: #### B MP #### [facility] ([id number]) [address] [place] [address] 34417 UROBILINOGEN <1.1 eu/dL Normal <1.1 eu/dL [facility] Comment on above: Performed By: #### B MP #### [facility] ([id number]) [address] [place] [address] 20536 URINE CULTUREon 01-21-2025 Bacteria identified Cx Nom (U) CULTURE RESULTS ENTEROCOCCUS SPECIES >100,000 CFU/mL Enterococcus species Ampicillin or Amoxicillin is the drug of choice for uncomplicated cystitis caused by enterococci. Cephalosporins are inappropriate. [ S = SUSCEPTIBLE R = RESISTANT I = INTERMEDIATE S-DO = Susceptible-dose dependent NS = Non-suscceptible NO = No Interpretation ] Organism: ENTEROCOCCUS SPECIES Antibiotic Interpretation KARIN Status Ampicillin S <=^2.0 F Nitrofurantoin S <=^16.0 F Vancomycin S 1.0 F Susceptibility Comment F Normal [facility] Comment on above: Order Comment: Along with 10,000 to 50,000 CFU/mL Normal [facility] Sharonda. Performed By: #### V BG #### [facility] ([id number]) [address] [place] [address] 07103 VARICELLA ZOSTER ANTIBODY, I GGon 01-21-2025 VARICELLA IGG 2.6 AI Normal <1.0 [facility] Comment on above: Order Comment: Intep retation< 0.9 Negative0.9 - 1.0 Equivocal> 1.0 Positive Performed By: #### V BG #### [facility] ([id number]) [address] [place] [address] 78300 Glucose (Bld) [Mass/Vol]Orde red By: Eleanor Beasley on 10-19-2024 Glucose Blood, POC 230 mg/dL [facility] - Hematology and Cell countson 10-19-2024 HbA1c (Bld) [Mass fraction] 13.5 % [facility] No Panel InformationOrdered By: Eleanor Beasley on 10-19-2024 [facility] Glucose (Bld) [Mass/Vol]on 0 07-12-2024 Glucose Blood, POC 250 mg/dL [facility] - Hematology and Cell countson 07-12-2024 HbA1c (Bld) [Mass fraction] 11.5 % [facility] No Panel Informationon 07-12 Interpretation and review of laboratory results Abnormal [facility] CBC AND AUTO DIFFon 05-30-20 24 ABSOLUTE BASOPHIL 0.0 X10E9/L Normal 0.0-0.2 [facility] Comment on above: Performed By: #### 2 106-3 #### [facility] ([id number]) [address] [place] [address] 27592 ABSOLUTE NEUTROPHIL 5.2 X10E9/L Normal 1.5-6.6 [facility] Comment on above: Performed By: #### 2 106-3 #### [facility] ([id number]) [address] [place] [address] 97102 Basophils/100 WBC (Bld) 0.3 % Normal P [facility] Comment on above: Performed By: #### 2 106-3 #### [facility] ([id number]) [address] [place] [address] 50964 Eosinophils (Bld) [#/Vol] 0.0 10*3/uL Normal 0.0-0.4 [facility] Comment on above: Performed By: #### 2 106-3 #### [facility] ([id number]) [address] [place] [address] 04873 Eosinophils/100 WBC (Bld) 0.1 % Normal [facility] Comment on above: Performed By: #### 2 106-3 #### [facility] ([id number]) [address] [place] [address] 87719 Erythrocyte distribution width (RBC) [Ratio] 14.6 % Normal 11.5-15.0 [facility] Comment on above: Performed By: #### 2 106-3 #### [facility] ([id number]) [address] [place] [address] 30188 Hematocrit (Bld) [Volume fraction] 27.6 % Low 35-47 [facility] Comment on above: Performed By: #### 2 106-3 #### [facility] ([id number]) [address] [place] [address] 14073 Hemoglobin (Bld) [Mass/Vol] 9.4 g/dL Low 11.7-15. 5 [facility] Comment on above: Performed By: #### 2 106-3 #### [facility] ([id number]) [address] [place] [address] 66079 Lymphocytes (Bld) [#/Vol] 2.1 10*3/uL Normal 1.0-3.5 [facility] Comment on above: Performed By: #### 2 106-3 #### [facility] ([id number]) [address] [place] [address] 80139 Lymphocytes/100 WBC (Bld) 26.4 % Normal [facility] Comment on above: Performed By: #### 2 106-3 #### [facility] ([id number]) [address] [place] [address] 93907 MCH (RBC) [Entitic mass] 26.2 pg Low 27-34 [facility] Comment on above: Performed By: #### 2 106-3 #### [facility] ([id number]) [address] [place] [address] 16606 MCHC (RBC) [Mass/Vol] 34.0 g/dL Normal 32-36 [facility] Comment on above: Performed By: #### 2 106-3 #### [facility] ([id number]) [address] [place] [address] 60858 MCV (RBC) [Entitic vol] 77 fL Low 80-100 [facility] Comment on above: Performed By: #### 2 106-3 #### [facility] ([id number]) [address] [place] [address] 73265 Monocytes (Bld) [#/Vol] 0.6 10*3/uL Normal 0-0.9 [facility] Comment on above: Performed By: #### 2 106-3 #### [facility] ([id number]) [address] [place] [address] 05431 Monocytes/100 WBC (Bld) 7.6 % Normal [facility] Comment on above: Performed By: #### 2 106-3 #### [facility] ([id number]) [address] [place] [address] 23392 Neutrophils/100 WBC (Bld) 65.6 % Normal [facility] Comment on above: Performed By: #### 2 106-3 #### [facility] ([id number]) [address] [place] [address] 24429 Platelet mean volume (Bld) [Entitic vol] 7.9 fL Normal 7-12 [facility] Comment on above: Performed By: #### 2 106-3 #### [facility] ([id number]) [address] [place] [address] 06354 Platelets (Bld) [#/Vol] 205 10*3/uL Normal 150-450 [facility] Comment on above: Performed By: #### 2 106-3 #### [facility] ([id number]) [address] [place] [address] 14464 RBC COUNT 3.58 X10E12/L Low 3.80-5.20 [facility] Comment on above: Performed By: #### 2 106-3 #### [facility] ([id number]) [address] [place] [address] 09323 WBC (Bld) [#/Vol] 7.9 10*3/uL Normal 4.0-11.0 [facility] Comment on above: Performed By: #### 2 106-3 #### [facility] ([id number]) [address] [place] [address] 83357 CBC auto differentialon 12- Basophils (Bld) [#/Vol] 0 10*3/uL [facility] Basophils/100 WBC (Bld) 0.3 % [facility] Eosinophils (Bld) [#/Vol] 0 10*3/uL [facility] Eosinophils/100 WBC (Bld) 0.1 % [facility] Erythrocyte distribution width (RBC) [Ratio] 14.6 % 11.5 - 15.0 % [facility] Hematocrit (Bld) [Volume fraction] 27.6 % Low 35 - 47 % [facility] Hemoglobin (Bld) [Mass/Vol] 9.4 g/dL Low 11.7 - 15.5 g/dL [facility] Interpretation and review of laboratory results Abnormal [facility] Lymphocytes (Bld) [#/Vol] 2.1 10*3/uL [facility] Lymphocytes/100 WBC (Bld) 26.4 % [facility] MCH (RBC) [Entitic mass] 26.2 pg Low 27 - 34 pg [facility] MCHC (RBC) [Mass/Vol] 34 g/dL 32 - 36 g/dL [facility] MCV (RBC) [Entitic vol] 77 fL Low 80 - 100 fL [facility] Monocytes (Bld) [#/Vol] 0.6 10*3/uL [facility] Monocytes/100 WBC (Bld) 7.6 % [facility] Neutrophils (Bld) [#/Vol] 5.2 10*3/uL [facility] Neutrophils/100 WBC (Bld) 65.6 % [facility] Platelet mean volume (Bld) [Entitic vol] 7.9 fL 7 - 12 fL [facility] Platelets (Bld) [#/Vol] 205 10*3/[facility] RBC (Bld) [#/Vol] 3.58 10*6/uL Low [facility] WBC corrected for nucl RBC Auto (Bld) [#/Vol] 7.9 [facility] COMPREHENSIVE METABOLIC PANE Galileo 05-30-2024 Albumin [Mass/Vol] 2.9 g/dL Low 3.2-5.3 [facility] Comment on above: Performed By: #### B MP #### [facility] ([id number]) [address] [place] [address] 72155 ALP [Catalytic activity/Vol] 61 U/L Normal 39-130 [facility] Comment on above: Performed By: #### B MP #### [facility] ([id number]) [address] [place] [address] 52232 ALT [Catalytic activity/Vol] 34 U/L High 0-31 [facility] Comment on above: Performed By: #### B MP #### [facility] ([id number]) [address] [place] [address] 47395 Anion gap [Moles/Vol] 5 mmol/L Normal 5-15 [facility] Comment on above: Performed By: #### B MP #### [facility] ([id number]) [address] [place] [address] 73860 AST [Catalytic activity/Vol] 28 U/L Normal 0-41 [facility] Comment on above: Performed By: #### B MP #### [facility] ([id number]) [address] [place] [address] 10127 Bilirubin [Mass/Vol] 0.6 mg/dL Normal 0.3-1.2 [facility] Comment on above: Performed By: #### B MP #### [facility] ([id number]) [address] [place] [address] 17921 Calcium [Mass/Vol] 7.4 mg/dL Low 8.5-10.5 [facility] Comment on above: Performed By: #### B MP #### [facility] ([id number]) [address] [place] [address] 61808 Chloride [Moles/Vol] 112 mmol/L High 98-109 [facility] Comment on above: Performed By: #### B MP #### [facility] ([id number]) [address] [place] [address] 53843 CO2 [Moles/Vol] 25 mmol/L Normal 22-32 [facility] Comment on above: Performed By: #### B MP #### [facility] ([id number]) [address] [place] [address] 26777 Creatinine [Mass/Vol] 0.41 mg/dL Normal 0.40-1.00 [facility] Comment on above: Result Comment: METH OD TRACEABLE TO IDMS STANDARD Performed By: #### B MP #### [facility] ([id number]) [address] [place] [address] 09983 eGFR (CKD-EPI) NON-RACE DEPENDENT >90 Normal >59 [facility] Comment on above: Result Comment: Reported eGFR is based on the CKD-EPI 2020 equation that does not use a race coefficient. Performed By: #### B MP #### [facility] ([id number]) [address] [place] [address] 28361 Glucose [Mass/Vol] 129 mg/dL High 65-99 [facility] Comment on above: Performed By: #### B MP #### [facility] ([id number]) [address] [place] [address] 54602 Potassium [Moles/Vol] 3.1 mmol/L Low 3.5-5.0 [facility] Comment on above: Performed By: #### B MP #### [facility] ([id number]) [address] [place] [address] 82690 Protein [Mass/Vol] 5.4 g/dL Low 6.0-8.0 [facility] Comment on above: Performed By: #### B MP #### [facility] ([id number]) [address] [place] [address] 52121 Sodium [Moles/Vol] 142 mmol/L Normal 134-146 [facility] Comment on above: Performed By: #### B MP #### [facility] ([id number]) [address] [place] [address] 82039 Urea nitrogen [Mass/Vol] 6 mg/dL Normal 5-23 [facility] Comment on above: Performed By: #### B MP #### [facility] ([id number]) [address] [place] [address] 19592 Comprehensive metabolic pane galileo 05-30-2024 Albumin [Mass/Vol] 2.9 g/dL Low 3.2 - 5.3 g/dL Pr [facility] ALP [Catalytic activity/Vol] 61 U/L 39 - 130 U/L [facility] ALT No additional P-5'-P [Catalytic activity/Vol] 34 U/L High 0 - 31 U/L [facility] Anion gap [Moles/Vol] 5 mmol/L 5 - 15 mmol/L [facility] AST [Catalytic activity/Vol] 28 U/L 0 - 41 U/L [facility] Bilirubin [Mass/Vol] 0.6 mg/dL 0.3 - 1 .2 mg/dL [facility] Calcium [Mass/Vol] 7.4 mg/dL Low 8.5 - 10. 5 mg/dL [facility] Chloride [Moles/Vol] 112 mmol/L High 98 - 10 9 mmol/L [facility] CO2 [Moles/Vol] 25 mmol/L 22 - 32 mmol/L [facility] Creatinine [Mass/Vol] 0.41 mg/dL 0.40 - 1.00 mg/dL [facility] Comment on above: METHOD TRACEABLE TO [facility] STANDARD eGFR (CKD-EPI)non-race dependent - PINF [facility] Comment on above: Reported eGFR is based on the CKD-EPI 2020 equation that does not use a race coefficient. Glucose [Mass/Vol] 129 mg/dL High 65 - 99 mg/dL [facility] Interpretation and review of laboratory results Abnormal [facility] Potassium [Moles/Vol] 3.1 mmol/L Low 3.5 - 5.0 mmol/L [facility] Protein [Mass/Vol] 5.4 g/dL Low 6.0 - 8.0 g/dL Pr [facility] Sodium [Moles/Vol] 142 mmol/L 134 - 146 mmol/L [facility] Urea nitrogen [Mass/Vol] 6 mg/dL 5 - 23 mg/d L [facility] ELECTROLYTESon 05-30-2024 Anion gap [Moles/Vol] 4 mmol/L Low 5-15 [facility] Comment on above: Performed By: #### B MP #### [facility] ([id number]) [address] [place] [address], [place] [address] Chloride [Moles/Vol] 107 mmol/L Normal 98-109 [facility] Comment on above: Performed By: #### B MP #### [facility] ([id number]) [address] [place] [address] 33294 CO2 [Moles/Vol] 26 mmol/L Normal 22-32 [facility] Comment on above: Performed By: #### B MP #### [facility] ([id number]) [address] [place] [address] 78492 Potassium [Moles/Vol] 3.4 mmol/L Low 3.5-5.0 [facility] Comment on above: Performed By: #### B MP #### [facility] ([id number]) [address] [place] [address] 72409 Sodium [Moles/Vol] 137 mmol/L Normal 134-146 [facility] Comment on above: Performed By: #### B MP #### [facility] ([id number]) [address] [place] [address] 40059 Electrolyte panelon 05-30-20 Anion gap [Moles/Vol] 4 mmol/L Low 5 - 15 mmol/L [facility] Chloride [Moles/Vol] 107 mmol/L 98 - 10 9 mmol/L [facility] CO2 [Moles/Vol] 26 mmol/L 22 - 32 mmol/L [facility] Interpretation and review of laboratory results Abnormal [facility] Potassium [Moles/Vol] 3.4 mmol/L Low 3.5 - 5.0 mmol/L [facility] Sodium [Moles/Vol] 137 mmol/L 134 - 146 mmol/L [facility] Glucose Glucometer (BldC) [M ass/Vol]on 05-30-2024 Glucose [Mass/Vol] 177 mg/dL High 65 - 99 mg/dL [facility] Interpretation and review of laboratory results Abnormal [facility] Glucose [Mass/Vol] 177 mg/dL High 65-99 [facility] Glucose [Mass/Vol] 211 mg/dL High 65 - 99 mg/dL [facility] Interpretation and review of laboratory results Abnormal [facility] Glucose [Mass/Vol] 211 mg/dL High 65-99 [facility] Glucose [Mass/Vol] 148 mg/dL High 65 - 99 mg/dL [facility] Interpretation and review of laboratory results Abnormal [facility] Glucose [Mass/Vol] 148 mg/dL High 65-99 [facility] MAGNESIUMon 05-30-2024 Magnesium [Mass/Vol] 2.1 mg/dL Normal 1.8-2.6 [facility] Comment on above: Performed By: #### B MP #### [facility] ([id number]) [address] [place] [address] 45852 Magnesiumon 05-30-2024 Magnesium [Mass/Vol] 2.1 mg/dL 1.8 - 2 .6 mg/dL [facility] No Panel Informationon 05-30 [facility] PHOSPHORUSon 05-30-2024 Phosphate [Mass/Vol] 1.3 mg/dL Low 2.4-4.9 [facility] Comment on above: Performed By: #### B MP #### [facility] ([id number]) [address] [place] [address] 36483 POTASSIUMon 05-30-2024 Potassium [Moles/Vol] 3.2 mmol/L Low 3.5-5.0 [facility] Comment on above: Performed By: #### 2 106-3 #### [facility] ([id number]) [address] [place] [address] 15137 Phosphate [Mass/Vol]on 05-30 Interpretation and review of laboratory results Abnormal [facility] Phosphoruson 05-30-2024 Phosphate [Mass/Vol] 1.3 mg/dL Low 2.4 - 4 .9 mg/dL [facility] Potassiumon 05-30-2024 Potassium [Moles/Vol] 3.2 mmol/L Low 3.5 - 5.0 mmol/L [facility] Potassium [Moles/Vol]on Interpretation and review of laboratory results Abnormal [facility] Blood gas, venouson 05-29-20 24 Arterial patency Wrist artery --pre arterial puncture [facility] Base deficit (Bld) [Moles/Vol] 3 mmol/L High [facility] CO2 (BldV) [Partial pressure] 35.8 mm[Hg] [facility] HCO3 (Bld) [Moles/Vol] 21.3 mmol/L P [facility] Interpretation and review of laboratory results Abnormal [facility] Oxygen (BldV) [Partial pressure] 35 mm[Hg] [facility] Oxygen therapy source and amount [CARE] RoomAir [facility] pH (BldV) 7.383 [pH] 7.320 - 7.420 [facility] SaO2% Calculated from oxygen partial pressure (BldV) [Mass fraction] 67 % Low 80.0 - PINF % [facility] Specimen site Narrative N/A P [facility] Specimen type Nom (Spec) VENOUS [facility] CBC AND AUTO DIFFon 05-29-20 24 ABSOLUTE BASOPHIL 0.0 X10E9/L Normal 0.0-0.2 [facility] Comment on above: Performed By: #### B MP #### [facility] ([id number]) [address] [place] [address] 81811 ABSOLUTE NEUTROPHIL 11.4 X10E9/L High 1.5-6.6 [facility] Comment on above: Performed By: #### B MP #### [facility] ([id number]) [address] [place] [address] 10462 Basophils/100 WBC (Bld) 0.1 % Normal [facility] Comment on above: Performed By: #### B MP #### [facility] ([id number]) [address] [place] [address] 26050 Eosinophils (Bld) [#/Vol] 0.0 10*3/uL Normal 0.0-0.4 [facility] Comment on above: Performed By: #### B MP #### [facility] ([id number]) [address] [place] [address] 04656 Eosinophils/100 WBC (Bld) 0.0 % Normal [facility] Comment on above: Performed By: #### B MP #### [facility] ([id number]) [address] [place] [address] 97651 Erythrocyte distribution width (RBC) [Ratio] 14.3 % Normal 11.5-15.0 [facility] Comment on above: Performed By: #### B MP #### [facility] ([id number]) [address] [place] [address] 16438 Hematocrit (Bld) [Volume fraction] 31.8 % Low 35-47 [facility] Comment on above: Performed By: #### B MP #### [facility] ([id number]) [address] [place] [address] 80636 Hemoglobin (Bld) [Mass/Vol] 10.6 g/dL Low 11.7-15. 5 [facility] Comment on above: Performed By: #### B MP #### [facility] ([id number]) [address] [place] [address] 05845 Lymphocytes (Bld) [#/Vol] 0.9 10*3/uL Low 1.0-3.5 [facility] Comment on above: Performed By: #### B MP #### [facility] ([id number]) [address] [place] [address] 82869 Lymphocytes/100 WBC (Bld) 7.0 % Normal [facility] Comment on above: Performed By: #### B MP #### [facility] ([id number]) [address] [place] [address] 04064 MCH (RBC) [Entitic mass] 25.8 pg Low 27-34 [facility] Comment on above: Performed By: #### B MP #### [facility] ([id number]) [address] [place] [address] [place] [address] MCHC (RBC) [Mass/Vol] 33.4 g/dL Normal 32-36 [facility] Comment on above: Performed By: #### B MP #### [facility] ([id number]) [address] [place] [address] 68433 MCV (RBC) [Entitic vol] 77 fL Low 80-100 P [facility] Comment on above: Performed By: #### B MP #### [facility] ([id number]) [address] [place] [address] 03759 Monocytes (Bld) [#/Vol] 0.8 10*3/uL Normal 0-0.9 [facility] Comment on above: Performed By: #### B MP #### [facility] ([id number]) [address] [place] [address] 28222 Monocytes/100 WBC (Bld) 5.7 % Normal [facility] Comment on above: Performed By: #### B MP #### [facility] ([id number]) [address] [place] [address] 27039 Neutrophils/100 WBC (Bld) 87.2 % Normal [facility] Comment on above: Performed By: #### B MP #### [facility] ([id number]) [address] [place] [address] [place] [address] Platelet mean volume (Bld) [Entitic vol] 7.9 fL Normal 7-12 [facility] Comment on above: Performed By: #### B MP #### [facility] ([id number]) [address] [place] [address] 41603 Platelets (Bld) [#/Vol] 286 10*3/uL Normal 150-450 [facility] Comment on above: Performed By: #### B MP #### [facility] ([id number]) [address] [place] [address] 71848 RBC COUNT 4.12 X10E12/L Normal 3.80-5.20 [facility] Comment on above: Performed By: #### B MP #### [facility] ([id number]) [address] [place] [address] 08698 WBC (Bld) [#/Vol] 13.1 10*3/uL High 4.0-11.0 [facility] Comment on above: Performed By: #### B MP #### [facility] ([id number]) [address] [place] [address] 24489 CBC auto differentialon 05-02 Basophils (Bld) [#/Vol] 0 10*3/uL P [facility] Basophils/100 WBC (Bld) 0.1 % [facility] Eosinophils (Bld) [#/Vol] 0 10*3/uL [facility] Eosinophils/100 WBC (Bld) 0 % [facility] Erythrocyte distribution width (RBC) [Ratio] 14.3 % 11.5 - 15.0 % [facility] Hematocrit (Bld) [Volume fraction] 31.8 % Low 35 - 47 % [facility] Hemoglobin (Bld) [Mass/Vol] 10.6 g/dL Low 11.7 - 15.5 g/dL [facility] Interpretation and review of laboratory results Abnormal [facility] Lymphocytes (Bld) [#/Vol] 0.9 10*3/uL Low [facility] Lymphocytes/100 WBC (Bld) 7 % [facility] MCH (RBC) [Entitic mass] 25.8 pg Low 27 - 34 pg [facility] MCHC (RBC) [Mass/Vol] 33.4 g/dL 32 - 36 g/dL [facility] MCV (RBC) [Entitic vol] 77 fL Low 80 - 100 fL [facility] Monocytes (Bld) [#/Vol] 0.8 10*3/uL [facility] Monocytes/100 WBC (Bld) 5.7 % [facility] Neutrophils (Bld) [#/Vol] 11.4 10*3/uL High [facility] Neutrophils/100 WBC (Bld) 87.2 % [facility] Platelet mean volume (Bld) [Entitic vol] 7.9 fL 7 - 12 fL [facility] Platelets (Bld) [#/Vol] 286 10*3/uL [facility] RBC (Bld) [#/Vol] 4.12 10*6/uL [facility] WBC corrected for nucl RBC Auto (Bld) [#/Vol] 13.1 High [facility] COMPREHENSIVE METABOLIC PANE [employer] 05-29-2024 Albumin [Mass/Vol] 3.4 g/dL Normal 3.2-5.3 [facility] Comment on above: Performed By: #### B MP #### [facility] ([id number]) [address] [place] [address] 78415 ALP [Catalytic activity/Vol] 63 U/L Normal 39-130 [facility] Comment on above: Performed By: #### B MP #### [facility] ([id number]) [address] [place] [address] 87479 ALT [Catalytic activity/Vol] 36 U/L High 0-31 [facility] Comment on above: Performed By: #### B MP #### [facility] ([id number]) [address] [place] [address] 33212 Anion gap [Moles/Vol] 7 mmol/L Normal 5-15 [facility] Comment on above: Performed By: #### B MP #### [facility] ([id number]) [address] [place] [address] 22074 AST [Catalytic activity/Vol] 48 U/L High 0-41 [facility] Comment on above: Performed By: #### B MP #### [facility] ([id number]) [address] [place] [address] 30040 Bilirubin [Mass/Vol] 0.3 mg/dL Normal 0.3-1.2 [facility] Comment on above: Performed By: #### B MP #### [facility] ([id number]) [address] [place] [address] 05476 Calcium [Mass/Vol] 8.1 mg/dL Low 8.5-10.5 [facility] Comment on above: Performed By: #### B MP #### [facility] ([id number]) [address] [place] [address] 06925 Chloride [Moles/Vol] 119 mmol/L High 98-109 [facility] Comment on above: Performed By: #### B MP #### [facility] ([id number]) [address] [place] [address] 03359 CO2 [Moles/Vol] 22 mmol/L Normal 22-32 [facility] Comment on above: Performed By: #### B MP #### [facility] ([id number]) [address] [place] [address] 76767 Creatinine [Mass/Vol] 0.51 mg/dL Normal 0.40-1.00 [facility] Comment on above: Result Comment: METH OD TRACEABLE TO IDMS STANDARD Performed By: #### B MP #### [facility] ([id number]) [address] [place] [address] 68804 eGFR (CKD-EPI) NON-RACE DEPENDENT >90 Normal >59 [facility] Comment on above: Result Comment: Reported eGFR is based on the CKD-EPI 2020 equation that does not use a race coefficient. Performed By: #### B MP #### [facility] ([id number]) [address] [place] [address] 75075 Glucose [Mass/Vol] 97 mg/dL Normal 65-99 [facility] Comment on above: Performed By: #### B MP #### [facility] ([id number]) [address] [place] [address] 58914 Potassium [Moles/Vol] 2.8 mmol/L Low 3.5-5.0 [facility] Comment on above: Performed By: #### B MP #### [facility] ([id number]) [address] [place] [address] 46363 Protein [Mass/Vol] 6.3 g/dL Normal 6.0-8.0 [facility] Comment on above: Performed By: #### B MP #### [facility] ([id number]) [address] [place] [address] 42674 Sodium [Moles/Vol] 148 mmol/L High 134-146 [facility] Comment on above: Performed By: #### B MP #### [facility] ([id number]) [address] [place] [address] 43999 Urea nitrogen [Mass/Vol] 10 mg/dL Normal 5-23 [facility] Comment on above: Performed By: #### B MP #### [facility] ([id number]) [address] [place] [address] ABDOMEN AND PELVIS W CONT on 05-29-2024 CT ABDOMEN AND PELVIS W CONT CT ABDOMEN AND PELVIS W CONT CLINICAL INFORMATION: Abdominal pain, acute, nonlocalized Nausea. COMPARISON: June 17, 2022 PROCEDURE: Routine CT abdomen and pelvis obtained after the uncomplicated intravenous administration of contrast material. Multiplanar reformats obtained from the axial data. Automated exposure control was utilized. FINDINGS: Lung bases show no acute findings No free air or free fluid Uterus and adnexa are unremarkable Bladder incompletely distended with a thickened wall. I cannot exclude cystitis. Findings best assessed in combination with other clinical data Liver gallbladder spleen pancreas adrenal glands and kidneys show no acute findings. No hydronephrosis or urinary tract stone identified IMPRESSION: Bladder incompletely distended with a thickened wall. I cannot exclude cystitis. Findings best assessed in combination with other clinical data No other acute findings All CT scans at this facility use dose modulation, iterative reconstruction, and/or weight based dosing when appropriate to reduce radiation dose to as low as reasonably achievable. 50 Finalized by Arie Diallo MD on 05/29/2024 12:[address] [facility] [address] Abdomen and Pelvis W cont rast Angel 05-29-2024 CLINICAL INFORMATION: Abdominal pain, acute, nonlocalized Nausea. COMPARISON: June 17, 2022 PROCEDURE: Routine CT abdomen and pelvis obtained after the uncomplicated intravenous administration of contrast material. Multiplanar reformats obtained from the axial data. Automated exposure control was utilized. FINDINGS: Lung bases show no acute findings No free air or free fluid Uterus and adnexa are unremarkable Bladder incompletely distended with a thickened wall. I cannot exclude cystitis. Findings best assessed in combination with other clinical data Liver gallbladder spleen pancreas adrenal glands and kidneys show no acute findings. No hydronephrosis or urinary tract stone identified IMPRESSION: Bladder incompletely distended with a thickened wall. I cannot exclude cystitis. Findings best assessed in combination with other clinical data No other acute findings All CT scans at this facility use dose modulation, iterative reconstruction, and/or weight based dosing when appropriate to reduce radiation dose to as low as reasonably achievable. 50 Finalized by Arie Diallo MD on 05/29/2024 12:29 PM [facility] Arie Diallo MD - 05/29/2024 CLINICAL INFORMATION: Abdominal pain, acute, nonlocalized Nausea. COMPARISON: June 17, 2022 PROCEDURE: Routine CT abdomen and pelvis obtained after the uncomplicated intravenous administration of contrast material. Multiplanar reformats obtained from the axial data. Automated exposure control was utilized. FINDINGS: Lung bases show no acute findings No free air or free fluid Uterus and adnexa are unremarkable Bladder incompletely distended with a thickened wall. I cannot exclude cystitis. Findings best assessed in combination with other clinical data Liver gallbladder spleen pancreas adrenal glands and kidneys show no acute findings. No hydronephrosis or urinary tract stone identified IMPRESSION: Bladder incompletely distended with a thickened wall. I cannot exclude cystitis. Findings best assessed in combination with other clinical data No other acute findings All CT scans at this facility use dose modulation, iterative reconstruction, and/or weight based dosing when appropriate to reduce radiation dose to as low as reasonably achievable. 50 Finalized by Arie Diallo MD on 05/29/2024 12:29 PM [facility] Radiology Study observation (narrative) [facility] CT Abdomen and Pelvis W cont rast IVOrdered By: Arie Diallo on 05-29-2024 [facility] Work Phone: Comprehensive metabolic pane galileo 05-29-2024 Albumin [Mass/Vol] 3.4 g/dL 3.2 - 5.3 g/dL Pr [facility] ALP [Catalytic activity/Vol] 63 U/L 39 - 130 U/L [facility] ALT No additional P-5'-P [Catalytic activity/Vol] 36 U/L High 0 - 31 U/L [facility] Anion gap [Moles/Vol] 7 mmol/L 5 - 15 mmol/L [facility] AST [Catalytic activity/Vol] 48 U/L High 0 - 41 U/L [facility] Bilirubin [Mass/Vol] 0.3 mg/dL 0.3 - 1 .2 mg/dL [facility] Calcium [Mass/Vol] 8.1 mg/dL Low 8.5 - 10. 5 mg/dL [facility] Chloride [Moles/Vol] 119 mmol/L High 98 - 10 9 mmol/L [facility] CO2 [Moles/Vol] 22 mmol/L 22 - 32 mmol/L [facility] Creatinine [Mass/Vol] 0.51 mg/dL 0.40 - 1.00 mg/dL [facility] Comment on above: METHOD TRACEABLE TO IDMI STANDARD eGFR (CKD-EPI)non-race dependent - PINF [facility] Comment on above: Reported eGFR is based on the CKD-EPI 2020 equation that does not use a race coefficient. Glucose [Mass/Vol] 97 mg/dL 65 - 99 mg/dL [facility] Potassium [Moles/Vol] 2.8 mmol/L Low 3.5 - 5.0 mmol/L [facility] Protein [Mass/Vol] 6.3 g/dL 6.0 - 8.0 g/dL Pr [facility] Sodium [Moles/Vol] 148 mmol/L High 134 - 146 mmol/L [facility] Urea nitrogen [Mass/Vol] 10 mg/dL 5 - 23 mg/d L [facility] ELECTROLYTESon 05-29-2024 Anion gap [Moles/Vol] 8 mmol/L Normal 5-15 [facility] Comment on above: Performed By: #### 2 106-3 #### [facility] ([id number]) [address] [place] [address] 72248 Chloride [Moles/Vol] 114 mmol/L High 98-109 [facility] Comment on above: Performed By: #### 2 106-3 #### [facility] ([id number]) [address] [place] [address] 91558 CO2 [Moles/Vol] 21 mmol/L Low 22-32 [facility] Comment on above: Performed By: #### 2 106-3 #### [facility] ([id number]) [address] [place] [address] 80593 Potassium [Moles/Vol] 3.4 mmol/L Low 3.5-5.0 [facility] Comment on above: Performed By: #### 2 106-3 #### [facility] ([id number]) [address] [place] [address] 10305 Sodium [Moles/Vol] 143 mmol/L Normal 134-146 [facility] Comment on above: Performed By: #### 2 106-3 #### [facility] ([id number]) [address] [place] [address] 23899 Anion gap [Moles/Vol] 4 mmol/L Low 5-15 [facility] Comment on above: Performed By: #### N UM #### [facility] ([id number]) [address] [place] [address] 69166 Chloride [Moles/Vol] 120 mmol/L High 98-109 [facility] Comment on above: Performed By: #### N UM #### [facility] ([id number]) [address] [place] [address], [place] [address] CO2 [Moles/Vol] 23 mmol/L Normal 22-32 [facility] Comment on above: Performed By: #### N UM #### [facility] ([id number]) [address] [place] [address], [place] [address] Potassium [Moles/Vol] 3.1 mmol/L Low 3.5-5.0 [facility] Comment on above: Performed By: #### N UM #### [facility] ([id number]) [address] [place] [address], [place] [address] Sodium [Moles/Vol] 147 mmol/L High 134-146 [facility] Comment on above: Performed By: #### N UM #### [facility] ([id number]) [address] [place] [address], [place] [address] Anion gap [Moles/Vol] 9 mmol/L Normal 5-15 [facility] Comment on above: Performed By: #### N UM #### [facility] ([id number]) [address] [place] [address], [place] [address] Chloride [Moles/Vol] 119 mmol/L High 98-109 [facility] Comment on above: Performed By: #### N UM #### [facility] ([id number]) [address] [place] [address], [place] [address] CO2 [Moles/Vol] 22 mmol/L Normal 22-32 [facility] Comment on above: Performed By: #### N UM #### [facility] ([id number]) [address] [place] [address], [place] [address] Potassium [Moles/Vol] 3.3 mmol/L Low 3.5-5.0 [facility] Comment on above: Performed By: #### N UM #### [facility] ([id number]) [address] [place] [address], [place] [address] Sodium [Moles/Vol] 150 mmol/L High 134-[address] [facility] Comment on above: Performed By: #### N UM #### [facility] ([id number]) [address] [place] [address], [place] [address] Electrolyte panelon 05-29-20 Anion gap [Moles/Vol] 8 mmol/L 5 - 15 mmol/L [facility] Chloride [Moles/Vol] 114 mmol/L High 98 - 10 9 mmol/L [facility] CO2 [Moles/Vol] 21 mmol/L Low 22 - 32 mmol/L [facility] Interpretation and review of laboratory results Abnormal [facility] Potassium [Moles/Vol] 3.4 mmol/L Low 3.5 - 5.0 mmol/L [facility] Sodium [Moles/Vol] 143 mmol/L 134 - 146 mmol/L [facility] Anion gap [Moles/Vol] 4 mmol/L Low 5 - 15 mmol/L [facility] Chloride [Moles/Vol] 120 mmol/L High 98 - 10 9 mmol/L [facility] CO2 [Moles/Vol] 23 mmol/L 22 - 32 mmol/L [facility] Interpretation and review of laboratory results Abnormal [facility] Potassium [Moles/Vol] 3.1 mmol/L Low 3.5 - 5.0 mmol/L [facility] Sodium [Moles/Vol] 147 mmol/L High 134 - 146 mmol/L [facility] Anion gap [Moles/Vol] 9 mmol/L 5 - 15 mmol/L [facility] Chloride [Moles/Vol] 119 mmol/L High 98 - 10 9 mmol/L [facility] CO2 [Moles/Vol] 22 mmol/L 22 - 32 mmol/L [facility] Interpretation and review of laboratory results Abnormal [facility] Potassium [Moles/Vol] 3.3 mmol/L Low 3.5 - 5.0 mmol/L [facility] Sodium [Moles/Vol] 150 mmol/L High 134 - 146 mmol/L [facility] Anion gap [Moles/Vol] 7 mmol/L 5 - 15 mmol/L [facility] Chloride [Moles/Vol] 118 mmol/L High 98 - 10 9 mmol/L [facility] CO2 [Moles/Vol] 21 mmol/L Low 22 - 32 mmol/L [facility] Interpretation and review of laboratory results Abnormal [facility] Potassium [Moles/Vol] 3.1 mmol/L Low 3.5 - 5.0 mmol/L [facility] Sodium [Moles/Vol] 146 mmol/L 134 - 146 mmol/L [facility] Glucose Glucometer (dC) [M ass/Vol]on 05-29-2024 Glucose [Mass/Vol] 287 mg/dL High 65 - 99 mg/dL [facility] Interpretation and review of laboratory results Abnormal [facility] Glucose [Mass/Vol] 287 mg/dL High 65-99 [facility] Glucose [Mass/Vol] 336 mg/dL High 65 - 99 mg/dL [facility] Interpretation and review of laboratory results Abnormal [facility] Glucose [Mass/Vol] 336 mg/dL High 65-99 [facility] Glucose [Mass/Vol] 318 mg/dL High 65 - 99 mg/dL [facility] Interpretation and review of laboratory results Abnormal [facility] Glucose [Mass/Vol] 318 mg/dL High 65-99 [facility] Glucose [Mass/Vol] 249 mg/dL High 65 - 99 mg/dL [facility] Interpretation and review of laboratory results Abnormal [facility] Glucose [Mass/Vol] 249 mg/dL High 65-99 [facility] Glucose [Mass/Vol] 88 mg/dL 65 - 99 mg/dL [facility] Glucose [Mass/Vol] 88 mg/dL Normal 65-99 [facility] Glucose [Mass/Vol] 73 mg/dL 65 - 99 mg/dL [facility] Glucose [Mass/Vol] 73 mg/dL Normal 65-99 [facility] Glucose [Mass/Vol] 100 mg/dL High 65 - 99 mg/dL [facility] Interpretation and review of laboratory results Abnormal [facility] Glucose [Mass/Vol] 100 mg/dL High 65-99 [facility] Glucose [Mass/Vol] 122 mg/dL High 65 - 99 mg/dL [facility] Interpretation and review of laboratory results Abnormal [facility] Glucose [Mass/Vol] 122 mg/dL High 65-99 [facility] Glucose [Mass/Vol] 114 mg/dL High 65 - 99 mg/dL [facility] Interpretation and review of laboratory results Abnormal [facility] Glucose [Mass/Vol] 114 mg/dL High 65-99 [facility] Glucose [Mass/Vol] 94 mg/dL 65 - 99 mg/dL [facility] Glucose [Mass/Vol] 94 mg/dL Normal 65-99 [facility] Glucose [Mass/Vol] 81 mg/dL 65 - 99 mg/dL [facility] Glucose [Mass/Vol] 81 mg/dL Normal 65-99 [facility] Glucose [Mass/Vol] 135 mg/dL High 65 - 99 mg/dL [facility] Interpretation and review of laboratory results Abnormal [facility] Glucose [Mass/Vol] 135 mg/dL High 65-99 [facility] Glucose [Mass/Vol] 100 mg/dL High 65 - 99 mg/dL [facility] Interpretation and review of laboratory results Abnormal [facility] Glucose [Mass/Vol] 100 mg/dL High 65-99 [facility] Glucose [Mass/Vol] 100 mg/dL High 65 - 99 mg/dL [facility] Interpretation and review of laboratory results Abnormal [facility] Glucose [Mass/Vol] 100 mg/dL High 65-99 [facility] Glucose [Mass/Vol] 54 mg/dL Low 65 - 99 mg/dL [facility] Interpretation and review of laboratory results Abnormal [facility] Glucose [Mass/Vol] 54 mg/dL Low 65-99 [facility] Glucose [Mass/Vol] 144 mg/dL High 65 - 99 mg/dL [facility] Glucose [Mass/Vol] 117 mg/dL High 65 - 99 mg/dL [facility] Interpretation and review of laboratory results Abnormal [facility] Glucose [Mass/Vol] 117 mg/dL High 65-99 [facility] Glucose [Mass/Vol] 144 mg/dL High 65-99 [facility] MAGNESIUMon 05-29-2024 Magnesium [Mass/Vol] 2.0 mg/dL Normal 1.8-2.6 [facility] Comment on above: Performed By: #### 2 106-3 #### [facility] ([id number]) [address] [place] [address] 30518 Magnesium [Mass/Vol] 1.5 mg/dL Low 1.8-2.6 [facility] Comment on above: Performed By: #### B MP #### [facility] ([id number]) [address] [place] [address] 46586 Magnesiumon 05-29-2024 Magnesium [Mass/Vol] 2 mg/dL 1.8 - 2 .6 mg/dL [facility] Magnesium [Mass/Vol] 1.5 mg/dL Low 1.8 - 2 .6 mg/dL [facility] Magnesium [Mass/Vol]on 05-29 [facility] No Panel Informationon 05-29 Interpretation and review of laboratory results Abnormal [facility] PHOSPHORUSon 05-29-2024 Phosphate [Mass/Vol] mg/dL Critically low 2.4-4.9 [facility] Comment on above: Performed By: #### B MP #### [facility] ([id number]) [address] [place] [address] 86426 POTASSIUMon 05-29-2024 Potassium [Moles/Vol] 3.0 mmol/L Low 3.5-5.0 [facility] Comment on above: Performed By: #### 2 106-3 #### [facility] ([id number]) [address] [place] [address] 74836 Phosphate [Mass/Vol]on 05-29 Interpretation and review of laboratory results Abnormal [facility] Phosphoruson 05-29-2024 Phosphate [Mass/Vol] mg/dL Critically low 2.4 - 4.9 mg/dL [facility] Potassiumon 05-29-2024 Potassium [Moles/Vol] 3 mmol/L Low 3.5 - 5.0 mmol/L [facility] Potassium [Moles/Vol]on 05-02 Interpretation and review of laboratory results Abnormal [facility] URINALYSISon 05-29-2024 Bilirubin Ql (U) Negative Normal NEG [facility] Comment on above: Performed By: #### 2 106-3 #### [facility] ([id number]) [address] [place] [address], [place] [address] BLOOD/HGB Trace Abnormal NEG [facility] Comment on above: Performed By: #### 2 106-3 #### [facility] ([id number]) [address] [place] [address], [place] [address] Color (U) YELLOW Normal YELLOW [facility] Comment on above: Performed By: #### 2 106-3 #### [facility] ([id number]) [address] [place] [address], [place] [address] Glucose Ql (U) >1000 Abnormal NEG [facility] Comment on above: Performed By: #### 2 106-3 #### [facility] ([id number]) [address] [place] [address], [place] [address] Ketones Ql (U) >80 Abnormal NEG [facility] Comment on above: Performed By: #### 2 106-3 #### [facility] ([id number]) [address] [place] [address] 20884 Leukocyte esterase Test strip Ql (U) Trace Abnormal NEG [facility] Comment on above: Result Comment: HIGH CONCENTRATIONS OF GLUCOSE MAY DECREASE THE REACTIVITY OF THE DIPSTICK LEUKOCYTE TEST PAD. Performed By: #### 2 106-3 #### [facility] ([id number]) [address] [place] [address] 80411 Nitrite Ql (U) Negative Normal NEG [facility] Comment on above: Performed By: #### 2 106-3 #### [facility] ([id number]) [address] [place] [address] 24332 pH (U) 6.0 [pH] Normal 5.0-8.5 [facility] Comment on above: Performed By: #### 2 106-3 #### [facility] ([id number]) [address] [place] [address] 81080 Protein Ql (U) Trace Abnormal NEG [facility] Comment on above: Performed By: #### 2 106-3 #### [facility] ([id number]) [address] [place] [address] 67053 R.B.CELLS 2 /hpf Normal 0-5 [facility] Comment on above: Performed By: #### 2 106-3 #### [facility] ([id number]) [address] [place] [address] 81847 Specific gravity (U) [Rel density] 1.025 Normal 1.003-1.035 [facility] Comment on above: Performed By: #### 2 106-3 #### [facility] ([id number]) [address] [place] [address] 81667 SQUAMOUS EPITHELIUM 2 /hpf Normal 0-5 [facility] Comment on above: Performed By: #### 2 106-3 #### [facility] ([id number]) [address] [place] [address] 71444 TURBIDITY HAZY Abnormal CLEAR [facility] Comment on above: Performed By: #### 2 106-3 #### [facility] ([id number]) [address] [place] [address] 76110 Urobilinogen Qn (U) 0.2 {Ophelia'U}/dL Normal <1.1 [facility] Comment on above: Performed By: #### 2 106-3 #### [facility] ([id number]) [address] [place] [address] 40171 W.B.CELLS >100 High 0-5 [facility] Comment on above: Performed By: #### 2 106-3 #### [facility] ([id number]) [address] [place] [address] 75401 WBC CLUMPS RARE Abnormal NONE [facility] Comment on above: Performed By: #### 2 106-3 #### [facility] ([id number]) [address] [place] [address] 79196 URINE CULTUREon 05-29-2024 Bacteria identified Cx Nom (U) CULTURE RESULTS >100,000 ORGANISMS/mL KLEBSIELLA PNEUMONIAE [ S = SUSCEPTIBLE R = RESISTANT I = INTERMEDIATE S-DO = Susceptible-dose dependent NS = Non-suscceptible NO = No Interpretation ] Organism: KLEBSIELLA PNEUMONIAE Antibiotic Interpretation KARIN Status AMPICILLIN R >=32 F AMP/SULBACTAM R >=32/16 F CEFAZOLIN R >=64 F CEFTRIAXONE R >=64 F CIPROFLOXACIN R 2 F GENTAMICIN R >=16 F LEVOFLOXACIN I 1 F NITROFURANTOIN R 128 F PIPERACIL/TAZOBACT AM S 16 F TOBRAMYCIN R >=16 F TRIMETH/SULFAMETHO XAZOLE R >=16/304 F ESBL Test A F ESBL Test Organism produces an extended spectrum beta lactamase (ESBL). It may be clinically resistant to therapy with penicillins, cephalosporins, or aztreonam. Contact laboratory if further information is required. F ERTAPENEM S <=0.12 F Susceptible [facility] Comment on above: Performed By: #### B MP #### [facility] ([id number]) [address] [place] [address], [place] [address] Urinalysison 05-29-2024 Bilirubin Ql (U) Negative Negative^Ne gat shreya [facility] Color (U) YELLOW YELLOW^YELLOW [facility] Epithelial cells Auto (Urine sed) [#/Area] 2 [facility] Glucose (U) [Mass/Vol] mg/dL Abnormal Negat shreya^Negat shreya mg/dL [facility] Hemoglobin Auto test strip Ql (U) Trace Abnormal Negative^Negat shreya [facility] Interpretation and review of laboratory results Abnormal [facility] Ketones (U) [Mass/Vol] mg/dL Abnormal Negat shreya^Negat shreya mg/dL [facility] Leukocyte clumps LM Ql (Urine sed) RARE Abnormal NONE^NONE [facility] Leukocyte esterase Auto test strip Ql (U) Trace Abnormal Negative^Negat shreya [facility] Comment on above: HIGH CONCENTRATIONS OF GLUCOSE MAY DECREASE THE REACTIVITY OF THE DIPSTICK LEUKOCYTE TEST PAD. Nitrite Auto test strip Ql (U) Negative Negative^Negat shreya [facility] pH (U) 6 [pH] 5.0 - 8.5 [facility] Protein (U) [Mass/Vol] Trace Abnormal Negat shreya^Negat shreya mg/dL [facility] RBC Auto (Urine sed) [#/Area] 2 [facility] Specific gravity Refractometry automated (U) [Rel density] 1.025 1.003 - 1.035 [facility] Turbidity Ql (U) HAZY Abnormal CLEAR^CLEAR [facility] Urobilinogen Qn (U) 0.2 NINF [facility] WBC Auto (Urine sed) [#/Area] High [facility] VENOUS BLOOD GASon CAMI'S TEST Normal [facility] Comment on above: Performed By: #### N UM #### [facility] ([id number]) [address] [place] [address], [place] [address] BASE,DEFICIT 3.0 MMOL/L High 0.0-2.0 [facility] Comment on above: Performed By: #### N UM #### [facility] ([id number]) [address] [place] [address] 48580 Body temperature 98.6 [degF] Normal 37.0 [facility] Comment on above: Performed By: #### N UM #### [facility] ([id number]) [address] [place] [address] 45004 HCO3 (Bld) [Moles/Vol] 21.3 mmol/L Normal 20.0-24.0 [facility] Comment on above: Performed By: #### N UM #### [facility] ([id number]) [address] [place] [address] 62448 Oxygen saturation in Blood 67.0 % Low >80.0 [facility] Comment on above: Performed By: #### N UM #### [facility] ([id number]) [address] [place] [address] [place] [address] OXYGEN SOURCE [employer]Air Normal [facility] Comment on above: Performed By: #### N UM #### [facility] ([id number]) [address] [place] [address] 96691 PCO2, VENOUS 35.8 MMHG Normal 35-50 [facility] Comment on above: Performed By: #### N UM #### [facility] ([id number]) [address] [place] [address] 70900 PH, VENOUS 7.383 Normal 7.320-7.420 [facility] Comment on above: Performed By: #### N UM #### [facility] ([id number]) [address] [place] [address] 14419 PO2, VENOUS 35 [facility] Normal 30-50 [facility] Comment on above: Performed By: #### N UM #### [facility] ([id number]) [address] [place] [address] 62210 SAMPLE SITE N/A Normal [facility] Comment on above: Performed By: #### N UM #### [facility] ([id number]) [address] [place] [address] 64039 SAMPLE TYPE VENOUS Normal [facility] Comment on above: Performed By: #### N UM #### [facility] ([id number]) [address] [place] [address] 67911 CBC AND AUTO DIFFon 05-28-20 24 Band form neutrophils/100 WBC (Bld) 1.9 % Normal [facility] Comment on above: Performed By: #### 6 873-4, CBCA, CMP #### [facility] ([id number]) [address] [place] [address] 60880 Erythrocyte distribution width (RBC) [Ratio] 14.1 % Normal 11.5-15.0 [facility] Comment on above: Performed By: #### 6 873-4, CBCA, CMP #### [facility] ([id number]) [address] [place] [address] 19564 Hematocrit (Bld) [Volume fraction] 34.1 % Low 35-47 [facility] Comment on above: Performed By: #### 6 873-4, CBCA, CMP #### [facility] ([id number]) [address] [place] [address] 64246 Hemoglobin (Bld) [Mass/Vol] 11.4 g/dL Low 11.7-15. 5 [facility] Comment on above: Performed By: #### 6 873-4, CBCA, CMP #### [facility] ([id number]) [address] [place] [address] 96817 Lymphocytes (Bld) [#/Vol] 1.5 10*3/uL Normal 1.0-3.5 [facility] Comment on above: Performed By: #### 6 873-4, CBCA, CMP #### [facility] ([id number]) [address] [place] [address] 25986 Lymphocytes/100 WBC (Bld) 6.8 % Normal [facility] Comment on above: Performed By: #### 6 873-4, CBCA, CMP #### [facility] ([id number]) [address] [place] [address] 83042 MCH (RBC) [Entitic mass] 26.0 pg Low 27-34 [facility] Comment on above: Performed By: #### 6 873-4, CBCA, CMP #### [facility] ([id number]) [address] [place] [address] 57957 MCHC (RBC) [Mass/Vol] 33.4 g/dL Normal 32-36 [facility] Comment on above: Performed By: #### 6 873-4, CBCA, CMP #### [facility] ([id number]) [address] [place] [address] 96861 MCV (RBC) [Entitic vol] 78 fL Low 80-100 P [facility] Comment on above: Performed By: #### 6 873-4, CBCA, CMP #### [facility] ([id number]) [address] [place] [address] 45183 Monocytes (Bld) [#/Vol] 0.4 10*3/uL Normal 0-0.9 [facility] Comment on above: Performed By: #### 6 873-4, CBCA, CMP #### [facility] ([id number]) [address] [place] [address] 18896 Monocytes/100 WBC (Bld) 1.9 % Normal [facility] Comment on above: Performed By: #### 6 873-4, CBCA, CMP #### [facility] ([id number]) [address] [place] [address] 65575 Neutrophils (Bld) [#/Vol] 20.3 10*3/uL High 1.5-6.6 [facility] Comment on above: Performed By: #### 6 873-4, CBCA, CMP #### [facility] ([id number]) [address] [place] [address] 79747 OVALOCYTE 2+ Abnormal NONE [facility] Comment on above: Performed By: #### 6 873-4, CBCA, CMP #### [facility] ([id number]) [address] [place] [address] 78854 Platelet mean volume (Bld) [Entitic vol] 7.9 fL Normal 7-12 [facility] Comment on above: Performed By: #### 6 873-4, CBCA, CMP #### [facility] ([id number]) [address] [place] [address] 70893 Platelets (Bld) [#/Vol] 340 10*3/uL Normal 150-450 [facility] Comment on above: Performed By: #### 6 873-4, CBCA, CMP #### [facility] ([id number]) [address] [place] [address] 94058 RBC COUNT 4.38 X10E12/L Normal 3.80-5.20 [facility] Comment on above: Performed By: #### 6 873-4, CBCA, CMP #### [facility] ([id number]) [address] [place] [address] 70956 SEG NEUTROPHIL 89.4 % Normal [facility] Comment on above: Performed By: #### 6 873-4, CBCA, CMP #### [facility] ([id number]) [address] [place] [address] 18557 TEARDROP 1+ Abnormal NONE [facility] Comment on above: Performed By: #### 6 873-4, CBCA, CMP #### [facility] ([id number]) [address] [place] [address] 87028 WBC (Bld) [#/Vol] 22.3 10*3/uL High 4.0-11.0 [facility] Comment on above: Performed By: #### 6 873-4, CBCA, CMP #### [facility] ([id number]) [address] [place] [address] 05161 CBC auto differentialon 05-01 Band form neutrophils/100 WBC (Bld) 1.9 % [facility] Dacrocytes LM Ql (Bld) 1+ Abnormal NONE^NONE Pr [facility] Erythrocyte distribution width (RBC) [Ratio] 14.1 % 11.5 - 15.0 % [facility] Hematocrit (Bld) [Volume fraction] 34.1 % Low 35 - 47 % [facility] Hemoglobin (Bld) [Mass/Vol] 11.4 g/dL Low 11.7 - 15.5 g/dL [facility] Interpretation and review of laboratory results Abnormal [facility] Lymphocytes (Bld) [#/Vol] 1.5 10*3/uL [facility] Lymphocytes/100 WBC (Bld) 6.8 % [facility] MCH (RBC) [Entitic mass] 26 pg Low 27 - 34 pg [facility] MCHC (RBC) [Mass/Vol] 33.4 g/dL 32 - 36 g/dL P [facility] MCV (RBC) [Entitic vol] 78 fL Low 80 - 100 fL [facility] Monocytes (Bld) [#/Vol] 0.4 10*3/uL [facility] Monocytes/100 WBC (Bld) 1.9 % P [facility] Neutrophils (Bld) [#/Vol] 20.3 10*3/uL High [facility] Ovalocytes LM Ql (Bld) 2+ Abnormal NONE^NONE [facility] Platelet mean volume (Bld) [Entitic vol] 7.9 fL 7 - 12 fL [facility] Platelets (Bld) [#/Vol] 340 10*3/uL [facility] RBC (Bld) [#/Vol] 4.38 10*6/uL [facility] Segmented neutrophils/100 WBC (Bld) 89.4 % [facility] WBC corrected for nucl RBC Auto (Bld) [#/Vol] 22.3 [facility] COMPREHENSIVE METABOLIC PANE Galileo 05-28-2024 Albumin [Mass/Vol] 4.0 g/dL Normal 3.2-5.3 [facility] Comment on above: Performed By: #### 6 873-4, CBCA, CMP #### [facility] ([id number]) [address] [place] [address] 58358 ALP [Catalytic activity/Vol] 76 U/L Normal 39-130 [facility] Comment on above: Performed By: #### 6 873-4, CBCA, CMP #### [facility] ([id number]) [address] [place] [address] 36209 ALT [Catalytic activity/Vol] 25 U/L Normal 0-31 [facility] Comment on above: Performed By: #### 6 873-4, CBCA, CMP #### [facility] ([id number]) [address] [place] [address] 98721 Anion gap [Moles/Vol] 9 mmol/L Normal 5-15 [facility] Comment on above: Performed By: #### 6 873-4, CBCA, CMP #### [facility] ([id number]) [address] [place] [address] 47837 AST [Catalytic activity/Vol] 27 U/L Normal 0-41 [facility] Comment on above: Performed By: #### 6 873-4, CBCA, CMP #### [facility] ([id number]) [address] [place] [address] [place] [address] Bilirubin [Mass/Vol] 0.6 mg/dL Normal 0.3-1.2 [facility] Comment on above: Performed By: #### 6 873-4, CBCA, CMP #### [facility] ([id number]) [address] [place] [address] 23052 Calcium [Mass/Vol] 8.7 mg/dL Normal 8.5-10.5 [facility] Comment on above: Performed By: #### 6 873-4, CBCA, CMP #### [facility] ([id number]) [address] [place] [address] 93813 Chloride [Moles/Vol] 117 mmol/L High 98-109 [facility] Comment on above: Performed By: #### 6 873-4, CBCA, CMP #### [facility] ([id number]) [address] [place] [address] 56607 CO2 [Moles/Vol] 16 mmol/L Low 22-32 [facility] Comment on above: Performed By: #### 6 873-4, CBCA, CMP #### [facility] ([id number]) [address] [place] [address] 77567 Creatinine [Mass/Vol] 0.73 mg/dL Normal 0.40-1.00 [facility] Comment on above: Result Comment: METH OD TRACEABLE TO IDMS STANDARD Performed By: #### 6 873-4, CBCA, CMP #### [facility] ([id number]) [address] [place] [address] 77883 eGFR (CKD-EPI) NON-RACE DEPENDENT >90 Normal >59 [facility] Comment on above: Result Comment: Reported eGFR is based on the CKD-EPI 2020 equation that does not use a race coefficient. Performed By: #### 6 873-4, CBCA, CMP #### [facility] ([id number]) [address] [place] [address] 22753 Glucose [Mass/Vol] 145 mg/dL High 65-99 [facility] Comment on above: Performed By: #### 6 873-4, CBCA, CMP #### [facility] ([id number]) [address] [place] [address] 57094 Potassium [Moles/Vol] 3.8 mmol/L Normal 3.5-5.0 [facility] Comment on above: Performed By: #### 6 873-4, CBCA, CMP #### [facility] ([id number]) [address] [place] [address] 49157 Protein [Mass/Vol] 7.0 g/dL Normal 6.0-8.0 [facility] Comment on above: Performed By: #### 6 873-4, CBCA, CMP #### [facility] ([id number]) [address] [place] [address] 29030 Sodium [Moles/Vol] 142 mmol/L Normal 134-146 [facility] Comment on above: Performed By: #### 6 873-4, CBCA, CMP #### [facility] ([id number]) [address] [place] [address] 41294 Urea nitrogen [Mass/Vol] 20 mg/dL Normal 5-23 [facility] Comment on above: Performed By: #### 6 873-4, CBCA, CMP #### [facility] ([id number]) [address] [place] [address] 45581 Comprehensive metabolic pane galileo 05-28-2024 Albumin [Mass/Vol] 4 g/dL 3.2 - 5.3 g/dL Pr [facility] ALP [Catalytic activity/Vol] 76 U/L 39 - 130 U/L [facility] ALT No additional P-5'-P [Catalytic activity/Vol] 25 U/L 0 - 31 U/L [facility] Anion gap [Moles/Vol] 9 mmol/L 5 - 15 mmol/L [facility] AST [Catalytic activity/Vol] 27 U/L 0 - 41 U/L [facility] Bilirubin [Mass/Vol] 0.6 mg/dL 0.3 - 1 .2 mg/dL [facility] Calcium [Mass/Vol] 8.7 mg/dL 8.5 - 10. 5 mg/dL [facility] Chloride [Moles/Vol] 117 mmol/L High 98 - 10 9 mmol/L [facility] CO2 [Moles/Vol] 16 mmol/L Low 22 - 32 mmol/L [facility] Creatinine [Mass/Vol] 0.73 mg/dL 0.40 - 1.00 mg/dL [facility] Comment on above: METHOD TRACEABLE TO [facility] STANDARD eGFR (CKD-EPI)non-race dependent - PINF [facility] Comment on above: Reported eGFR is based on the CKD-EPI 2020 equation that does not use a race coefficient. Glucose [Mass/Vol] 145 mg/dL High 65 - 99 mg/dL [facility] Potassium [Moles/Vol] 3.8 mmol/L 3.5 - 5.0 mmol/L [facility] Protein [Mass/Vol] 7 g/dL 6.0 - 8.0 g/dL [facility] Sodium [Moles/Vol] 142 mmol/L 134 - 146 mmol/L [facility] Urea nitrogen [Mass/Vol] 20 mg/dL 5 - 23 mg/d L [facility] ELECTROLYTESon 05-28-2024 Anion gap [Moles/Vol] 7 mmol/L Normal 5-15 [facility] Comment on above: Performed By: #### 3 2133-1 #### [facility] ([id number]) [address] [place] [address] 62018 Chloride [Moles/Vol] 118 mmol/L High 98-109 [facility] Comment on above: Performed By: #### 3 2133-1 #### [facility] ([id number]) [address] [place] [address] 59304 CO2 [Moles/Vol] 21 mmol/L Low 22-32 [facility] Comment on above: Performed By: #### 3 2132-1 #### [facility] ([id number]) [address] [place] [address], [place] [address] Potassium [Moles/Vol] 3.1 mmol/L Low 3.5-5.0 [facility] Comment on above: Performed By: #### 3 2132-1 #### [facility] ([id number]) [address] [place] [address], [place] [address] Sodium [Moles/Vol] 146 mmol/L Normal 134-146 [facility] Comment on above: Performed By: #### 3 2132-1 #### [facility] ([id number]) [address] [place] [address] [place] [address] Anion gap [Moles/Vol] 13 mmol/L Normal 5-15 [facility] Comment on above: Performed By: #### 3 2132-1 #### [facility] ([id number]) [address] [place] [address], [place] [address] Chloride [Moles/Vol] 117 mmol/L High 98-109 [facility] Comment on above: Performed By: #### 3 2132-1 #### [facility] ([id number]) [address] [place] [address], [place] [address] CO2 [Moles/Vol] 16 mmol/L Low 22-32 [facility] Comment on above: Performed By: #### 3 2132-1 #### [facility] ([id number]) [address] [place] [address], [place] [address] Potassium [Moles/Vol] 3.8 mmol/L Normal 3.5-5.0 [facility] Comment on above: Result Comment: SPEC IMEN HEMOLYZED, RESULTS INCREASED Performed By: #### 3 2132-1 #### [facility] ([id number]) [address] [place] [address] 09460 Sodium [Moles/Vol] 146 mmol/L Normal 134-146 [facility] Comment on above: Performed By: #### 3 2133-1 #### [facility] ([id number]) [address] [place] [address] 39241 Anion gap [Moles/Vol] 8 mmol/L Normal 5-15 [facility] Comment on above: Performed By: #### 6 873-4, CBCA, CMP #### [facility] ([id number]) [address] [place] [address] [id number] Potassium [Moles/Vol] 4.8 mmol/L Normal 3.5-5.0 [facility] Comment on above: SPECIMEN HEMOLYZED, RESULTS INCREASED Result Comment: SPEC IMEN HEMOLYZED, RESULTS INCREASED Performed By: #### 6 873-4, CBCA, CMP #### [facility] ([id number]) [address] [place] [address] [id number] Sodium [Moles/Vol] 144 mmol/L Normal 134-146 [facility] Comment on above: Performed By: #### 6 873-4, CBCA, CMP #### [facility] ([id number]) [address] [place] [address] 37434 Chloride [Moles/Vol] 121 mmol/L High 98-109 [facility] Comment on above: Performed By: #### 6 873-4, CBCA, CMP #### [facility] ([id number]) [address] [place] [address] 32687 CO2 [Moles/Vol] 15 mmol/L Low 22-32 [facility] Comment on above: Performed By: #### 6 873-4, CBCA, CMP #### [facility] ([id number]) [address] [place] [address] 84429 Anion gap [Moles/Vol] 7 mmol/L Normal 5-15 [facility] Comment on above: Performed By: #### 6 873-4, CBCA, CMP #### [facility] ([id number]) [address] [place] [address], [place] [address] Chloride [Moles/Vol] 121 mmol/L High 98-109 [facility] Comment on above: Performed By: #### 6 873-4, CBCA, CMP #### [facility] ([id number]) [address] [place] [address] [place] [address] CO2 [Moles/Vol] 15 mmol/L Low 22-32 [facility] Comment on above: Performed By: #### 6 873-4, CBCA, CMP #### [facility] ([id number]) [address] [place] [address] 74887 Potassium [Moles/Vol] 3.6 mmol/L Normal 3.5-5.0 [facility] Comment on above: Performed By: #### 6 873-4, CBCA, CMP #### [facility] ([id number]) [address] [place] [address], [place] [address] Sodium [Moles/Vol] 143 mmol/L Normal 134-146 [facility] Comment on above: Performed By: #### 6 873-4, CBCA, CMP #### [facility] ([id number]) [address] [place] [address] [place] [address] Anion gap [Moles/Vol] 14 mmol/L Normal 5-15 [facility] Comment on above: Performed By: #### 6 873-4, CBCA, CMP #### [facility] ([id number]) [address] [place] [address], [place] [address] Chloride [Moles/Vol] 114 mmol/L High 98-109 [facility] Comment on above: Performed By: #### 6 873-4, CBCA, CMP #### [facility] ([id number]) [address] [place] [address] 43100 CO2 [Moles/Vol] 12 mmol/L Low 22-32 [facility] Comment on above: Performed By: #### 6 873-4, CBCA, CMP #### [facility] ([id number]) [address] [place] [address] 19667 Potassium [Moles/Vol] 4.2 mmol/L Normal 3.5-5.0 [facility] Comment on above: Performed By: #### 6 873-4, CBCA, CMP #### [facility] ([id number]) [address] [place] [address] 56772 Sodium [Moles/Vol] 140 mmol/L Normal 134-146 [facility] Comment on above: Performed By: #### 6 873-4, CBCA, CMP #### [facility] ([id number]) [address] [place] [address] 51345 Electrolyte panelon 05-28-20 Anion gap [Moles/Vol] 13 mmol/L 5 - 15 mmol/L [facility] Chloride [Moles/Vol] 117 mmol/L High 98 - 10 9 mmol/L [facility] CO2 [Moles/Vol] 16 mmol/L Low 22 - 32 mmol/L [facility] Interpretation and review of laboratory results Abnormal [facility] Potassium [Moles/Vol] 3.8 mmol/L 3.5 - 5.0 mmol/L [facility] Comment on above: SPECIMEN HEMOLYZED, RESULTS INCREASED Sodium [Moles/Vol] 146 mmol/L 134 - 146 mmol/L [facility] Chloride [Moles/Vol] 121 mmol/L High 98 - 10 9 mmol/L [facility] CO2 [Moles/Vol] 15 mmol/L Low 22 - 32 mmol/L [facility] Interpretation and review of laboratory results Abnormal [facility] Anion gap [Moles/Vol] 7 mmol/L 5 - 15 mmol/L [facility] Interpretation and review of laboratory results Abnormal [facility] Potassium [Moles/Vol] 3.6 mmol/L 3.5 - 5.0 mmol/L [facility] Sodium [Moles/Vol] 143 mmol/L 134 - 146 mmol/L [facility] Anion gap [Moles/Vol] 14 mmol/L 5 - 15 mmol/L [facility] Chloride [Moles/Vol] 114 mmol/L High 98 - 10 9 mmol/L [facility] CO2 [Moles/Vol] 12 mmol/L Low 22 - 32 mmol/L [facility] Interpretation and review of laboratory results Abnormal [facility] Potassium [Moles/Vol] 4.2 mmol/L 3.5 - 5.0 mmol/L [facility] Sodium [Moles/Vol] 140 mmol/L 134 - 146 mmol/L [facility] Glucose Glucometer (BldC) [M ass/Vol]on 05-28-2024 Glucose [Mass/Vol] 245 mg/dL High 65 - 99 mg/dL [facility] Interpretation and review of laboratory results Abnormal [facility] Glucose [Mass/Vol] 245 mg/dL High 65-99 [facility] Glucose [Mass/Vol] 183 mg/dL High 65 - 99 mg/dL [facility] Interpretation and review of laboratory results Abnormal [facility] Glucose [Mass/Vol] 183 mg/dL High 65-99 [facility] Glucose [Mass/Vol] 167 mg/dL High 65 - 99 mg/dL [facility] Interpretation and review of laboratory results Abnormal [facility] Glucose [Mass/Vol] 167 mg/dL High 65-99 [facility] Glucose [Mass/Vol] 133 mg/dL High 65 - 99 mg/dL [facility] Interpretation and review of laboratory results Abnormal [facility] Glucose [Mass/Vol] 133 mg/dL High 65-99 [facility] Glucose [Mass/Vol] 121 mg/dL High 65 - 99 mg/dL [facility] Interpretation and review of laboratory results Abnormal [facility] Glucose [Mass/Vol] 121 mg/dL High 65-99 [facility] Glucose [Mass/Vol] 158 mg/dL High 65 - 99 mg/dL [facility] Interpretation and review of laboratory results Abnormal [facility] Glucose [Mass/Vol] 158 mg/dL High 65-99 [facility] Glucose [Mass/Vol] 128 mg/dL High 65 - 99 mg/dL [facility] Interpretation and review of laboratory results Abnormal [facility] Glucose [Mass/Vol] 128 mg/dL High 65-99 [facility] Glucose [Mass/Vol] 119 mg/dL High 65 - 99 mg/dL [facility] Interpretation and review of laboratory results Abnormal [facility] Glucose [Mass/Vol] 119 mg/dL High 65-99 [facility] Glucose [Mass/Vol] 110 mg/dL High 65 - 99 mg/dL [facility] Interpretation and review of laboratory results Abnormal [facility] Glucose [Mass/Vol] 110 mg/dL High 65-99 [facility] Glucose [Mass/Vol] 109 mg/dL High 65 - 99 mg/dL [facility] Interpretation and review of laboratory results Abnormal [facility] Glucose [Mass/Vol] 109 mg/dL High 65-99 [facility] Glucose [Mass/Vol] 133 mg/dL High 65 - 99 mg/dL [facility] Interpretation and review of laboratory results Abnormal [facility] Glucose [Mass/Vol] 133 mg/dL High 65-99 [facility] Glucose [Mass/Vol] 174 mg/dL High 65 - 99 mg/dL [facility] Interpretation and review of laboratory results Abnormal [facility] Glucose [Mass/Vol] 174 mg/dL High 65-99 [facility] Glucose [Mass/Vol] 191 mg/dL High 65 - 99 mg/dL [facility] Interpretation and review of laboratory results Abnormal [facility] Glucose [Mass/Vol] 191 mg/dL High 65-99 [facility] Glucose [Mass/Vol] 162 mg/dL High 65 - 99 mg/dL [facility] Interpretation and review of laboratory results Abnormal [facility] Glucose [Mass/Vol] 162 mg/dL High 65-99 [facility] Glucose [Mass/Vol] 134 mg/dL High 65 - 99 mg/dL [facility] Interpretation and review of laboratory results Abnormal [facility] Glucose [Mass/Vol] 134 mg/dL High 65-99 [facility] Glucose [Mass/Vol] 178 mg/dL High 65 - 99 mg/dL [facility] Interpretation and review of laboratory results Abnormal [facility] Glucose [Mass/Vol] 178 mg/dL High 65-99 [facility] Glucose [Mass/Vol] 231 mg/dL High 65 - 99 mg/dL [facility] Interpretation and review of laboratory results Abnormal [facility] Glucose [Mass/Vol] 231 mg/dL High 65-99 [facility] Glucose [Mass/Vol] 247 mg/dL High 65 - 99 mg/dL [facility] Interpretation and review of laboratory results Abnormal [facility] Glucose [Mass/Vol] 247 mg/dL High 65-99 [facility] MAGNESIUMon 05-28-2024 Magnesium [Mass/Vol] 1.7 mg/dL Low 1.8-2.6 [facility] Comment on above: Performed By: #### 6 873-4, CBCA, CMP #### [facility] ([id number]) [address] [place] [address], [place] [address] Magnesiumon 05-28-2024 Magnesium [Mass/Vol] 1.7 mg/dL Low 1.8 - 2 .6 mg/dL [facility] No Panel Informationon 05-28 Interpretation and review of laboratory results Abnormal [facility] Acetone, (BetaHydroxybutyrat e, Ketone) quantitative, serumon 05-27-2024 Beta hydroxybutyrate [Moles/Vol] 11.28 mmol/L High 0.02 - 0.27 mmol/L [facility] Beta hydroxybutyrate [Moles/ Vol]on 05-27-2024 Interpretation and review of laboratory results Abnormal [facility] BetaHydroxybutyrate 11.28 mmol/L High 0.02-0.27 [facility] Comment on above: Performed By: #### V BG #### [facility] ([id number]) [address] [place] [address] 05917 Blood gas, venouson 05-27-20 24 Arterial patency Wrist artery --pre arterial puncture [facility] Base deficit (Bld) [Moles/Vol] 23 mmol/L High [facility] CO2 (BldV) [Partial pressure] 22.2 mm[Hg] Low [facility] HCO3 (Bld) [Moles/Vol] 6 mmol/L Low Pr [facility] Interpretation and review of laboratory results Abnormal [facility] Oxygen (BldV) [Partial pressure] 37 mm[Hg] [facility] Oxygen therapy source and amount [CARE] RoomAir [facility] pH (BldV) 7.042 [pH] Low 7.320 - 7.420 [facility] SaO2% Calculated from oxygen partial pressure (BldV) [Mass fraction] 49 % Low 80.0 - PINF % [facility] Specimen site Narrative N/A P [facility] Specimen type Nom (Spec) VENOUS [facility] CBC AND AUTO DIFFon 05-27-20 24 Band form neutrophils/100 WBC (Bld) 4.0 % Normal [facility] Comment on above: Performed By: #### V BG #### [facility] ([id number]) [address] [place] [address] 38913 Erythrocyte distribution width (RBC) [Ratio] 14.4 % Normal 11.5-15.0 [facility] Comment on above: Performed By: #### V BG #### [facility] ([id number]) [address] [place] [address] 88973 Hematocrit (Bld) [Volume fraction] 41.4 % Normal 35-47 [facility] Comment on above: Performed By: #### V BG #### [facility] ([id number]) [address] [place] [address] 90276 Hemoglobin (Bld) [Mass/Vol] 13.1 g/dL Normal 11.7-15. 5 [facility] Comment on above: Performed By: #### V BG #### [facility] ([id number]) [address] [place] [address] 91611 Lymphocytes (Bld) [#/Vol] 1.9 10*3/uL Normal 1.0-3.5 [facility] Comment on above: Performed By: #### V BG #### [facility] ([id number]) [address] [place] [address] 26232 Lymphocytes/100 WBC (Bld) 7.0 % Normal [facility] Comment on above: Performed By: #### V BG #### [facility] ([id number]) [address] [place] [address] 51966 MCH (RBC) [Entitic mass] 26.0 pg Low 27-34 [facility] Comment on above: Performed By: #### V BG #### [facility] ([id number]) [address] [place] [address] 93780 MCHC (RBC) [Mass/Vol] 31.7 g/dL Low 32-36 [facility] Comment on above: Performed By: #### V BG #### [facility] ([id number]) [address] [place] [address] 85610 MCV (RBC) [Entitic vol] 82 fL Normal 80-100 P [facility] Comment on above: Performed By: #### V BG #### [facility] ([id number]) [address] [place] [address] 28881 Monocytes (Bld) [#/Vol] 0.3 10*3/uL Normal 0-0.9 [facility] Comment on above: Performed By: #### V BG #### [facility] ([id number]) [address] [place] [address] 29620 Monocytes/100 WBC (Bld) 1.0 % Normal P [facility] Comment on above: Performed By: #### V BG #### [facility] ([id number]) [address] [place] [address] 81295 Neutrophils (Bld) [#/Vol] 25.5 10*3/uL High 1.5-6.6 [facility] Comment on above: Performed By: #### V BG #### [facility] ([id number]) [address] [place] [address] 61957 OVALOCYTE 1+ Abnormal NONE [facility] Comment on above: Performed By: #### V BG #### [facility] ([id number]) [address] [place] [address] 51840 Platelet mean volume (Bld) [Entitic vol] 8.4 fL Normal 7-12 [facility] Comment on above: Performed By: #### V BG #### [facility] ([id number]) [address] [place] [address] 99382 Platelets (Bld) [#/Vol] 397 10*3/uL Normal 150-450 [facility] Comment on above: Performed By: #### V BG #### [facility] ([id number]) [address] [place] [address] 10438 RBC COUNT 5.05 X10E12/L Normal 3.80-5.20 [facility] Comment on above: Performed By: #### V BG #### [facility] ([id number]) [address] [place] [address] 93791 SEG NEUTROPHIL 88.0 % Normal [facility] Comment on above: Performed By: #### V BG #### [facility] ([id number]) [address] [place] [address] WBC (Bld) [#/Vol] 27.7 10*3/uL High 4.0-11.0 [facility] Comment on above: Performed By: #### V BG #### [facility] ([id number]) [address] [place] [address] 43089 CBC auto differentialon 05-01 Band form neutrophils/100 WBC (Bld) 4 % [facility] Erythrocyte distribution width (RBC) [Ratio] 14.4 % 11.5 - 15.0 % [facility] Hematocrit (Bld) [Volume fraction] 41.4 % 35 - 47 % [facility] Hemoglobin (Bld) [Mass/Vol] 13.1 g/dL 11.7 - 15.5 g/dL [facility] Interpretation and review of laboratory results Abnormal [facility] Lymphocytes (Bld) [#/Vol] 1.9 10*3/uL [facility] Lymphocytes/100 WBC (Bld) 7 % [facility] MCH (RBC) [Entitic mass] 26 pg Low 27 - 34 pg [facility] MCHC (RBC) [Mass/Vol] 31.7 g/dL Low 32 - 36 g/dL P [facility] MCV (RBC) [Entitic vol] 82 fL 80 - 100 fL [facility] Monocytes (Bld) [#/Vol] 0.3 10*3/uL [facility] Monocytes/100 WBC (Bld) 1 % P [facility] Neutrophils (Bld) [#/Vol] 25.5 10*3/uL High [facility] Ovalocytes LM Ql (Bld) 1+ Abnormal NONE^NONE [facility] Platelet mean volume (Bld) [Entitic vol] 8.4 fL 7 - 12 fL [facility] Platelets (Bld) [#/Vol] 397 10*3/uL [facility] RBC (Bld) [#/Vol] 5.05 10*6/uL [facility] Segmented neutrophils/100 WBC (Bld) 88 % [facility] WBC corrected for nucl RBC Auto (Bld) [#/Vol] 27.7 High [facility] COMPREHENSIVE METABOLIC PANE Galileo 05-27-2024 Albumin [Mass/Vol] 4.7 g/dL Normal 3.2-5.3 [facility] Comment on above: Performed By: #### V BG #### [facility] ([id number]) [address] [place] [address] 92098 ALP [Catalytic activity/Vol] 99 U/L Normal 39-130 [facility] Comment on above: Performed By: #### V BG #### [facility] ([id number]) [address] [place] [address] 88453 ALT [Catalytic activity/Vol] 31 U/L Normal 0-31 [facility] Comment on above: Performed By: #### V BG #### [facility] ([id number]) [address] [place] [address] 60307 Anion gap [Moles/Vol] 26 mmol/L High 5-15 [facility] Comment on above: Performed By: #### V BG #### [facility] ([id number]) [address] [place] [address] 53705 AST [Catalytic activity/Vol] 22 U/L Normal 0-41 [facility] Comment on above: Performed By: #### V BG #### [facility] ([id number]) [address] [place] [address] 34648 Bilirubin [Mass/Vol] 1.2 mg/dL Normal 0.3-1.2 [facility] Comment on above: Performed By: #### V BG #### [facility] ([id number]) [address] [place] [address] 30004 Calcium [Mass/Vol] 8.9 mg/dL Normal 8.5-10.5 [facility] Comment on above: Performed By: #### V BG #### [facility] ([id number]) [address] [place] [address] 23555 Chloride [Moles/Vol] 106 mmol/L Normal 98-109 [facility] Comment on above: Performed By: #### V BG #### [facility] ([id number]) [address] [place] [address] 68006 CO2 [Moles/Vol] 7 mmol/L Critically low 22-32 [facility] Comment on above: Performed By: #### V BG #### [facility] ([id number]) [address] [place] [address] 71509 Creatinine [Mass/Vol] 1.16 mg/dL High 0.40-1.00 [facility] Comment on above: Result Comment: METH OD TRACEABLE TO IDMS STANDARD Performed By: #### V BG #### [facility] ([id number]) [address] [place] [address] 40263 GFR/1.73 sq M.predicted among non-blacks MDRD (S/P/Bld) [Vol rate/Area] 65 mL/min/{1.73_m2} Normal >59 [facility] Comment on above: Result Comment: Reported eGFR is based on the CKD-EPI 2020 equation that does not use a race coefficient. Performed By: #### V BG #### [facility] ([id number]) [address] [place] [address] 58235 Glucose [Mass/Vol] 469 mg/dL Critically high 65-99 [facility] Comment on above: Performed By: #### V BG #### [facility] ([id number]) [address] [place] [address] 09690 Potassium [Moles/Vol] 4.6 mmol/L Normal 3.5-5.0 [facility] Comment on above: Performed By: #### V BG #### [facility] ([id number]) [address] [place] [address] 36015 Protein [Mass/Vol] 8.4 g/dL High 6.0-8.0 [facility] Comment on above: Performed By: #### V BG #### [facility] ([id number]) [address] [place] [address] 46163 Sodium [Moles/Vol] 139 mmol/L Normal 134-146 [facility] Comment on above: Performed By: #### V BG #### [facility] ([id number]) [address] [place] [address] 91344 Urea nitrogen [Mass/Vol] 26 mg/dL High 5-23 [facility] Comment on above: Performed By: #### V BG #### [facility] ([id number]) [address] [place] [address] 63931 Comprehensive metabolic pane galileo 05-27-2024 Albumin [Mass/Vol] 4.7 g/dL 3.2 - 5.3 g/dL Pr [facility] ALP [Catalytic activity/Vol] 99 U/L 39 - 130 U/L [facility] ALT No additional P-5'-P [Catalytic activity/Vol] 31 U/L 0 - 31 U/L [facility] Anion gap [Moles/Vol] 26 mmol/L High 5 - 15 mmol/L [facility] AST [Catalytic activity/Vol] 22 U/L 0 - 41 U/L [facility] Bilirubin [Mass/Vol] 1.2 mg/dL 0.3 - 1 .2 mg/dL [facility] Calcium [Mass/Vol] 8.9 mg/dL 8.5 - 10. 5 mg/dL [facility] Chloride [Moles/Vol] 106 mmol/L 98 - 10 9 mmol/L [facility] CO2 [Moles/Vol] 7 mmol/L Critically low 22 - 32 mmol/L P [facility] Creatinine [Mass/Vol] 1.16 mg/dL High 0.40 - 1.00 mg/dL [facility] Comment on above: METHOD TRACEABLE TO IDMI STANDARD eGFR (CKD-EPI)non-race dependent 65 - PINF [facility] Comment on above: Reported eGFR is based on the CKD-EPI 2020 equation that does not use a race coefficient. Glucose [Mass/Vol] 469 mg/dL Critically high 65 - 99 mg/d L [facility] Interpretation and review of laboratory results Abnormal [facility] Potassium [Moles/Vol] 4.6 mmol/L 3.5 - 5.0 mmol/L [facility] Protein [Mass/Vol] 8.4 g/dL High 6.0 - 8.0 g/dL Pr [facility] Sodium [Moles/Vol] 139 mmol/L 134 - 146 mmol/L [facility] Urea nitrogen [Mass/Vol] 26 mg/dL High 5 - 23 mg/d L [facility] DRUG SCREEN, URINEon 024 AMPHETAMINE/METHAMP Negative Normal NEG [facility] Comment on above: Result Comment: AMPH /METH screening cut off = 1000 ng/mL Performed By: #### 6 873-4, CBCA, CMP #### [facility] ([id number]) [address] [place] [address] 28897 BARBITURATES Negative Normal NEG [facility] Comment on above: Result Comment: Landy iturates screening cut off value = 200 ng/mL Performed By: #### 6 873-4, CBCA, CMP #### [facility] ([id number]) [address] [place] [address] 92514 BENZODIAZEPINES Negative Normal NEG [facility] Comment on above: Result Comment: Lui odiazepines screening cut off value = 200 ng/mL Performed By: #### 6 873-4, CBCA, CMP #### [facility] ([id number]) [address] [place] [address] 73230 CANNABINOIDS Negative Normal NEG [facility] Comment on above: Result Comment: Jm abinoids/THC screening cut off value = 50 ng/mL Performed By: #### 6 873-4, CBCA, CMP #### [facility] ([id number]) [address] [place] [address] 50345 COCAINE METABOLITE Negative Normal NEG [facility] Comment on above: Result Comment: Coca ine screening cut off value = 300 ng/mL Performed By: #### 6 873-4, CBCA, CMP #### [facility] ([id number]) [address] [place] [address] 55310 ECSTASY Negative Normal NEG [facility] Comment on above: Result Comment: Ecst asy screening cut off value = 500 ng/mL This report is intended for use in clinical monitoring or management of patients. Performed By: #### 6 873-4, CBCA, CMP #### [facility] ([id number]) [address] [place] [address] 39870 METHADONE Negative Normal [facility] Comment on above: Result Comment: Meth adone screening cut off value = 300 ng/mL. Performed By: #### 6 873-4, CBCA, CMP #### [facility] ([id number]) [address] [place] [address] 62117 OPIATES Negative Normal NEG [facility] Comment on above: Result Comment: Opia andrea screening cut off value = 300 ng/mL NOTE: This test is used for the detection of codeine, hydrocodone (>1000 ng/mL), morphine and hydromorphone (>900 ng/mL) in urine. Performed By: #### 6 873-4, CBCA, CMP #### [facility] ([id number]) [address] [place] [address] 97009 OXYCODONE Negative Normal NEG [facility] Comment on above: Result Comment: Oxyc odone screening cut off value = 300 ng/mL NOTE: This test is used for the detection of oxycodone and oxymorphone in urine. Performed By: #### 6 873-4, CBCA, CMP #### [facility] ([id number]) [address] [place] [address] 42571 PHENCYCLIDINE Negative Normal NEG [facility] Comment on above: Result Comment: Phen cyclidine screening cut off value = 25 ng/mL Performed By: #### 6 873-4, CBCA, CMP #### [facility] ([id number]) [address] [place] [address] 61482 Drug Screen, Urineon 11-28-2 024 Amphetamines Screen method >1000 ng/mL Ql (U) Negative Negative^Negat shreya [facility] Comment on above: AMPH/METH screening cut off = 1000 ng/mL Barbiturates Screen Ql (U) Negative N egative^Negat shreya [facility] Comment on above: Barbiturates screeni ng cut off value = 200 ng/mL Benzodiazepines Ql (U) Negative Negat shreya^Negat shreya [facility] Comment on above: Benzodiazepines scre ening cut off value = 200 ng/mL Cocaine Ql (U) Negative Negative^Nega t shreya [facility] Comment on above: Cocaine screening cu t off value = 300 ng/mL Methadone Screen Ql (U) Negative Nega tive^Negat shreya [facility] Comment on above: Methadone screening cut off value = 300 ng/mL. Methylenedioxymethamphetami ne Screen Ql (U) Negative Negative^Negat shreya [facility] Comment on above: Ecstasy screening cu t off value = 500 ng/mL This report is intended for use in clinical monitoring or management of patients. Opiates Screen Ql (U) Negative Negati ve^Negat shreya [facility] Comment on above: Opiates screening cu t off value = 300 ng/mL NOTE: This test is used for the detection of codeine, hydrocodone (>1000 ng/mL), morphine and hydromorphone (>900 ng/mL) in urine. oxyCODONE Ql (U) Negative Negative^Ne gat shreya [facility] Comment on above: Oxycodone screening cut off value = 300 ng/mL NOTE: This test is used for the detection of oxycodone and oxymorphone in urine. Phencyclidine Screen method >25 ng/mL Ql (U) Negative Negative^Negat shreya [facility] Comment on above: Phencyclidine screen ing cut off value = 25 ng/mL Tetrahydrocannabinol Screen method >50 ng/mL Ql (U) Negative Negative^Negat shreya [facility] Comment on above: Cannabinoids/THC scr eening cut off value = 50 ng/mL [facility] ELECTROLYTESon 05-27-2024 Anion gap [Moles/Vol] 16 mmol/L High 5-15 [facility] Comment on above: Performed By: #### 6 873-4, CBCA, CMP #### [facility] ([id number]) [address] [place] [address] 99773 Chloride [Moles/Vol] 111 mmol/L High 98-109 [facility] Comment on above: Performed By: #### 6 873-4, CBCA, CMP #### [facility] ([id number]) [address] [place] [address] 48819 CO2 [Moles/Vol] 11 mmol/L Low 22-32 [facility] Comment on above: Performed By: #### 6 873-4, CBCA, CMP #### [facility] ([id number]) [address] [place] [address] 10471 Potassium [Moles/Vol] 3.9 mmol/L Normal 3.5-5.0 [facility] Comment on above: Performed By: #### 6 873-4, CBCA, CMP #### [facility] ([id number]) [address] [place] [address] 07841 Sodium [Moles/Vol] 138 mmol/L Normal 134-146 [facility] Comment on above: Performed By: #### 6 873-4, CBCA, CMP #### [facility] ([id number]) [address] [place] [address] [place] [address] Anion gap [Moles/Vol] 23 mmol/L High 5-15 [facility] Comment on above: Performed By: #### 6 873-4, CBCA, CMP #### [facility] ([id number]) [address] [place] [address] 58571 Chloride [Moles/Vol] 111 mmol/L High 98-109 [facility] Comment on above: Performed By: #### 6 873-4, CBCA, CMP #### [facility] ([id number]) [address] [place] [address] 88522 CO2 [Moles/Vol] 7 mmol/L Critically low 22-32 [facility] Comment on above: Performed By: #### 6 873-4, CBCA, CMP #### [facility] ([id number]) [address] [place] [address] 43696 Potassium [Moles/Vol] 3.9 mmol/L Normal 3.5-5.0 [facility] Comment on above: Performed By: #### 6 873-4, CBCA, CMP #### [facility] ([id number]) [address] [place] [address] 74959 Sodium [Moles/Vol] 141 mmol/L Normal 134-146 [facility] Comment on above: Performed By: #### 6 873-4, CBCA, CMP #### [facility] ([id number]) [address] [place] [address] [place] [address] Anion gap [Moles/Vol] 23 mmol/L High 5-15 [facility] Comment on above: Performed By: #### 6 873-4, CBCA, CMP #### [facility] ([id number]) [address] [place] [address] [place] [address] Chloride [Moles/Vol] 110 mmol/L High 98-109 [facility] Comment on above: Performed By: #### 6 873-4, CBCA, CMP #### [facility] ([id number]) [address] [place] [address] 47290 CO2 [Moles/Vol] 6 mmol/L Critically low 22-32 [facility] Comment on above: Performed By: #### 6 873-4, CBCA, CMP #### [facility] ([id number]) [address] [place] [address] 12364 Potassium [Moles/Vol] 4.1 mmol/L Normal 3.5-5.0 [facility] Comment on above: Performed By: #### 6 873-4, CBCA, CMP #### [facility] ([id number]) [address] [place] [address] 91721 Sodium [Moles/Vol] 139 mmol/L Normal 134-146 [facility] Comment on above: Performed By: #### 6 873-4, CBCA, CMP #### [facility] ([id number]) [address] [place] [address] 95907 Electrolyte panelon 05-27-20 Anion gap [Moles/Vol] 16 mmol/L High 5 - 15 mmol/L [facility] Chloride [Moles/Vol] 111 mmol/L High 98 - 10 9 mmol/L [facility] CO2 [Moles/Vol] 11 mmol/L Low 22 - 32 mmol/L [facility] Interpretation and review of laboratory results Abnormal [facility] Potassium [Moles/Vol] 3.9 mmol/L 3.5 - 5.0 mmol/L [facility] Sodium [Moles/Vol] 138 mmol/L 134 - 146 mmol/L [facility] Anion gap [Moles/Vol] 23 mmol/L High 5 - 15 mmol/L [facility] Chloride [Moles/Vol] 111 mmol/L High 98 - 10 9 mmol/L [facility] CO2 [Moles/Vol] 7 mmol/L Critically low 22 - 32 mmol/L [facility] Interpretation and review of laboratory results Abnormal [facility] Potassium [Moles/Vol] 3.9 mmol/L 3.5 - 5.0 mmol/L [facility] Sodium [Moles/Vol] 141 mmol/L 134 - 146 mmol/L [facility] Anion gap [Moles/Vol] 23 mmol/L High 5 - 15 mmol/L [facility] Chloride [Moles/Vol] 110 mmol/L High 98 - 10 9 mmol/L [facility] CO2 [Moles/Vol] 6 mmol/L Critically low 22 - 32 mmol/L [facility] Interpretation and review of laboratory results Abnormal [facility] Potassium [Moles/Vol] 4.1 mmol/L 3.5 - 5.0 mmol/L [facility] Sodium [Moles/Vol] 139 mmol/L 134 - 146 mmol/L [facility] Glucose Glucometer (BldC) [M ass/Vol]on 05-27-2024 Glucose [Mass/Vol] 246 mg/dL High 65 - 99 mg/dL [facility] Interpretation and review of laboratory results Abnormal [facility] Glucose [Mass/Vol] 246 mg/dL High 65-99 [facility] Glucose [Mass/Vol] 204 mg/dL High 65 - 99 mg/dL [facility] Interpretation and review of laboratory results Abnormal [facility] Glucose [Mass/Vol] 204 mg/dL High 65-99 [facility] Glucose [Mass/Vol] 222 mg/dL High 65 - 99 mg/dL [facility] Interpretation and review of laboratory results Abnormal [facility] Glucose [Mass/Vol] 222 mg/dL High 65-99 [facility] Glucose [Mass/Vol] 262 mg/dL High 65 - 99 mg/dL [facility] Interpretation and review of laboratory results Abnormal [facility] Glucose [Mass/Vol] 262 mg/dL High 65-99 [facility] Glucose [Mass/Vol] 302 mg/dL High 65 - 99 mg/dL [facility] Interpretation and review of laboratory results Abnormal [facility] Glucose [Mass/Vol] 302 mg/dL High 65-99 [facility] Glucose [Mass/Vol] 398 mg/dL High 65 - 99 mg/dL [facility] Glucose [Mass/Vol] 367 mg/dL High 65 - 99 mg/dL [facility] Interpretation and review of laboratory results Abnormal [facility] Glucose [Mass/Vol] 367 mg/dL High 65-99 [facility] Glucose [Mass/Vol] 398 mg/dL High 65-99 [facility] Glucose [Mass/Vol] 430 mg/dL Critically high 65 - 99 mg/d L [facility] Interpretation and review of laboratory results Abnormal [facility] Glucose [Mass/Vol] 430 mg/dL Critically high 65-99 P [facility] Glucose [Mass/Vol] 418 mg/dL Critically high 65 - 99 mg/d L [facility] Interpretation and review of laboratory results Abnormal [facility] Glucose [Mass/Vol] 418 mg/dL Critically high 65-99 [facility] HCG ( test) Ql (U)o n 05-27-2024 [facility] Beta HCG ( test) Ql (U) Negative Normal NEG [facility] Comment on above: Performed By: #### 6 873-4, CBCA, CMP #### [facility] ([id number]) [address] [place] [address] 49589 LIPASEon 05-27-2024 Lipase [Catalytic activity/Vol] 36 U/L Normal 17-40 [facility] Comment on above: Performed By: #### V BG #### [facility] ([id number]) [address] [place] [address] 93919 Lactate (P denis) [Moles/Vol]o n 05-27-2024 [facility] LACTATE W/REFLEX 1.5 mmol/L Normal 0.4-2.[address] [facility] Comment on above: Result Comment: Result did not trigger repeat Lactate, re-order if needed. Performed By: #### V BG #### [facility] ([id number]) [address] [place] [address], [place] [address] Lactate w/ Reflexon 05-27-20 Lactate (P denis) [Moles/Vol] 1.5 mmol/L 0.4 - 2.0 mmol/L [facility] Comment on above: Result did not trigger repeat Lactate, re-order if needed. Lipaseon 05-27-2024 Lipase [Catalytic activity/Vol] 36 U/L 17 - 40 U/L [facility] MAGNESIUMon 05-27-2024 Magnesium [Mass/Vol] 2.1 mg/dL Normal 1.8-2.6 [facility] Comment on above: Performed By: #### V BG #### [facility] ([id number]) [address] [place] [address] 39378 Magnesiumon 05-27-2024 Magnesium [Mass/Vol] 2.1 mg/dL 1.8 - 2 .6 mg/dL [facility] No Panel Informationon 05-27 [facility] POCT Nursing Urine Macroscop ic UAon 05-27-2024 Bilirubin Ql (U) Small Abnormal Negative^Ne gat shreya [facility] Glucose [Mass/Vol] 500 mg/dL Abnormal Negative^ Negat shreya [facility] Hemoglobin Ql (U) MODERATE Abnormal Negative^N egat shreya [facility] Interpretation and review of laboratory results Abnormal [facility] Ketones (U) [Mass/Vol] mg/dL Abnormal Negat shreya^Negat shreya mg/dL [facility] Leukocyte esterase Test strip Ql (U) Negative Negative^Negat shreya [facility] Nitrite Ql (U) Negative Negative^Nega t shreya [facility] pH (U) 5.5 [pH] 5.0 - 8.5 [facility] Protein Ql (U) 100 mg/dL Abnormal Negative^Nega t shreya [facility] Specific gravity (U) [Rel density] 1.025 1.003 - 1.035 [facility] Urobilinogen Qn (U) 0.2 N[facility] POCT , urineon 05-01 HCG ( test) Ql (U) Negative Negative^Negat shreya [facility] URN MACROSCOPIC NURon 2023 BILIRUBIN NAZ Small Abnormal NEG [facility] Comment on above: Performed By: #### V BG #### [facility] ([id number]) [address] [place] [address] 09308 BLOOD/HGB NAZ MODERATE Abnormal NEG [facility] Comment on above: Performed By: #### V BG #### [facility] ([id number]) [address] [place] [address] 45135 GLUCOSE NAZ 500 mg/dL Abnormal NEG [facility] Comment on above: Performed By: #### V BG #### [facility] ([id number]) [address] [place] [address] 04744 KETONES NAZ >=160 Abnormal NEG [facility] Comment on above: Performed By: #### V BG #### [facility] ([id number]) [address] [place] [address] 88879 LEUKOCYTE ESTERASE NAZ Negative Normal NEG [facility] Comment on above: Performed By: #### V BG #### [facility] ([id number]) [address] [place] [address] 78925 NITRITE NAZ Negative Normal NEG [facility] Comment on above: Performed By: #### V BG #### [facility] ([id number]) [address] [place] [address] 14977 PH NAZ 5.5 Normal 5.0-8.5 [facility] Comment on above: Performed By: #### V BG #### [facility] ([id number]) [address] [place] [address] 13154 PROTEIN NAZ 100 mg/dL Abnormal NEG [facility] Comment on above: Performed By: #### V BG #### [facility] ([id number]) [address] [place] [address] 69660 SPECIFIC GRAVITY NAZ 1.025 Normal 1.003-1.035 [facility] Comment on above: Performed By: #### V BG #### [facility] ([id number]) [address] [place] [address] 85775 UROBILINOGEN NAZ 0.2 eu/dL Normal <1.[address] [facility] Comment on above: Performed By: #### V BG #### [facility] ([id number]) [address] [place] [address] 31058 VENOUS BLOOD GASon 4 CAMI'S TEST Normal [facility] Comment on above: Performed By: #### V BG #### [facility] ([id number]) [address] [place] [address] 14698 BASE,DEFICIT 23.0 MMOL/L High 0.0-2.0 [facility] Comment on above: Performed By: #### V BG #### [facility] ([id number]) [address] [place] [address] 65391 Body temperature 98.6 [degF] Normal 37.0 [facility] Comment on above: Performed By: #### V BG #### [facility] ([id number]) [address] [place] [address] 33051 HCO3 (Bld) [Moles/Vol] 6.0 mmol/L Low 20.0-24.0 [facility] Comment on above: Performed By: #### V BG #### [facility] ([id number]) [address] [place] [address] 65925 Oxygen saturation in Blood 49.0 % Low >80.0 [facility] Comment on above: Performed By: #### V BG #### [facility] ([id number]) [address] [place] [address] 14377 OXYGEN SOURCE [facility] Comment on above: Performed By: #### V BG #### [facility] ([id number]) [address] [place] [address] 39160 PCO2, VENOUS 22.2 [facility] Low 35-50 [facility] Comment on above: Performed By: #### V BG #### [facility] ([id number]) [address] [place] [address] 62596 PH, VENOUS 7.042 Low 7.320-7.420 [facility] Comment on above: Performed By: #### V BG #### [facility] ([id number]) [address] [place] [address] 89467 PO2, VENOUS 37 [facility] Normal 30-50 [facility] Comment on above: Performed By: #### V BG #### [facility] ([id number]) [address] [place] [address] [place] [address] SAMPLE SITE N/A [facility] Comment on above: Performed By: #### V BG #### [facility] ([id number]) [address] [place] [address] 26488 SAMPLE TYPE VENOUS Normal [facility] Comment on above: Performed By: #### V BG #### [facility] ([id number]) [address] [place] [address] 26716 Glucose (Bld) [Mass/Vol]Orde red By: Eleanor Beasley on 04-12-2024 Glucose Blood, POC 99 mg/dL [facility] HbA1c (Bld) [Mass fraction]o n 04-12-2024 Interpretation and review of laboratory results Abnormal [facility] Laboratory - Hematology and Cell countson 04-12-2024 HbA1c (Bld) [Mass fraction] 14.1 % [facility] No Panel InformationOrdered By: Eleanor Beasley on 04-12-2024 [facility] XR Foot - right 3 [facility] Result: 3 views foot: AP, MO, and lateral of the right foot were taken and show Large complete minimally displaced avulsion fracture noted of the base of the 5th metatarsal. There is a fracture gap of approximately 5 mm noted laterally. No osseous callus present. [facility] Radiology Study observation (narrative) [facility] BASIC METABOLIC PANLon 03-02 Anion gap [Moles/Vol] 8 mmol/L Normal 5-15 [facility] Comment on above: Performed By: #### B MP #### [facility] ([id number]) [address] [place] [address] 67850 Calcium [Mass/Vol] 7.3 mg/dL Low 8.5-10.5 [facility] Comment on above: Performed By: #### B MP #### [facility] ([id number]) [address] [place] [address] 39173 Chloride [Moles/Vol] 109 mmol/L Normal 98-109 [facility] Comment on above: Performed By: #### B MP #### [facility] ([id number]) [address] [place] [address] 50857 CO2 [Moles/Vol] 14 mmol/L Low 22-32 [facility] Comment on above: Performed By: #### B MP #### [facility] ([id number]) [address] [place] [address] 30222 Creatinine [Mass/Vol] 0.70 mg/dL Normal 0.40-1.00 [facility] Comment on above: Result Comment: METH OD TRACEABLE TO IDMS STANDARD Performed By: #### B MP #### [facility] ([id number]) [address] [place] [address] 63870 eGFR (CKD-EPI) NON-RACE DEPENDENT >90 Normal >59 [facility] Comment on above: Result Comment: Reported eGFR is based on the CKD-EPI 2020 equation that does not use a race coefficient. Performed By: #### B MP #### [facility] ([id number]) [address] [place] [address] 55226 Glucose [Mass/Vol] 241 mg/dL High 65-99 [facility] Comment on above: Performed By: #### B MP #### [facility] ([id number]) [address] [place] [address] 99707 Potassium [Moles/Vol] 3.7 mmol/L Normal 3.5-5.0 [facility] Comment on above: Performed By: #### B MP #### [facility] ([id number]) [address] [place] [address] 77965 Sodium [Moles/Vol] 131 mmol/L Low 134-146 [facility] Comment on above: Performed By: #### B MP #### [facility] ([id number]) [address] [place] [address] 72810 Urea nitrogen [Mass/Vol] 16 mg/dL Normal 5-23 [facility] Comment on above: Performed By: #### B MP #### [facility] ([id number]) [address] [place] [address] 83525 Anion gap [Moles/Vol] 12 mmol/L Normal 5-15 [facility] Comment on above: Performed By: #### B MP #### [facility] ([id number]) [address] [place] [address] 57201 Calcium [Mass/Vol] 7.6 mg/dL Low 8.5-10.5 [facility] Comment on above: Performed By: #### B MP #### [facility] ([id number]) [address] [place] [address] 50846 Chloride [Moles/Vol] 107 mmol/L Normal 98-109 [facility] Comment on above: Performed By: #### B MP #### [facility] ([id number]) [address] [place] [address] 39929 CO2 [Moles/Vol] 11 mmol/L Low 22-32 [facility] Comment on above: Performed By: #### B MP #### [facility] ([id number]) [address] [place] [address] 35847 Creatinine [Mass/Vol] 0.80 mg/dL Normal 0.40-1.00 [facility] Comment on above: Result Comment: METH OD TRACEABLE TO IDMS STANDARD Performed By: #### B MP #### [facility] ([id number]) [address] [place] [address] 88964 eGFR (CKD-EPI) NON-RACE DEPENDENT >90 Normal >59 [facility] Comment on above: Result Comment: Reported eGFR is based on the CKD-EPI 2021 equation that does not use a race coefficient. Performed By: #### B MP #### [facility] ([id number]) [address] [place] [address] 22735 Glucose [Mass/Vol] 345 mg/dL High 65-99 [facility] Comment on above: Performed By: #### B MP #### [facility] ([id number]) [address] [place] [address] 31788 Potassium [Moles/Vol] 3.7 mmol/L Normal 3.5-5.0 [facility] Comment on above: Performed By: #### B MP #### [facility] ([id number]) [address] [place] [address] 85489 Sodium [Moles/Vol] 130 mmol/L Low 134-146 [facility] Comment on above: Performed By: #### B MP #### [facility] ([id number]) [address] [place] [address] 37396 Urea nitrogen [Mass/Vol] 18 mg/dL Normal 5-23 [facility] Comment on above: Performed By: #### B MP #### [facility] ([id number]) [address] [place] [address] 70417 Beta hydroxybutyrate [Moles/ Vol]on 03-02-2024 BetaHydroxybutyrate 7.48 mmol/L High 0.02-0.27 [facility] Comment on above: Performed By: #### 6 873-4, CBCA, CMP #### [facility] ([id number]) [address] [place] [address] 98456 CBC AND AUTO DIFFon 03-02-20 24 ABSOLUTE BASOPHIL 0.0 X10E9/L Normal 0.0-0.2 [facility] Comment on above: Performed By: #### 6 873-4, CBCA, CMP #### [facility] ([id number]) [address] [place] [address] 55452 ABSOLUTE NEUTROPHIL 8.1 X10E9/L High 1.5-6.6 [facility] Comment on above: Performed By: #### 6 873-4, CBCA, CMP #### [facility] ([id number]) [address] [place] [address] 14075 Basophils/100 WBC (Bld) 0.4 % Normal [facility] Comment on above: Performed By: #### 6 873-4, CBCA, CMP #### [facility] ([id number]) [address] [place] [address] 78053 Eosinophils (Bld) [#/Vol] 0.0 10*3/uL Normal 0.0-0.4 [facility] Comment on above: Performed By: #### 6 873-4, CBCA, CMP #### [facility] ([id number]) [address] [place] [address] 47086 Eosinophils/100 WBC (Bld) 0.4 % Normal [facility] Comment on above: Performed By: #### 6 873-4, CBCA, CMP #### [facility] ([id number]) [address] [place] [address] 58381 Erythrocyte distribution width (RBC) [Ratio] 14.2 % Normal 11.5-15.0 [facility] Comment on above: Performed By: #### 6 873-4, CBCA, CMP #### [facility] ([id number]) [address] [place] [address] 68407 Hematocrit (Bld) [Volume fraction] 39.6 % Normal 35-47 [facility] Comment on above: Performed By: #### 6 873-4, CBCA, CMP #### [facility] ([id number]) [address] [place] [address] 11990 Hemoglobin (Bld) [Mass/Vol] 13.0 g/dL Normal 11.7-15. 5 [facility] Comment on above: Performed By: #### 6 873-4, CBCA, CMP #### [facility] ([id number]) [address] [place] [address] 32261 Lymphocytes (Bld) [#/Vol] 1.1 10*3/uL Normal 1.0-3.5 [facility] Comment on above: Performed By: #### 6 873-4, CBCA, CMP #### [facility] ([id number]) [address] [place] [address] 99115 Lymphocytes/100 WBC (Bld) 11.2 % Normal [facility] Comment on above: Performed By: #### 6 873-4, CBCA, CMP #### [facility] ([id number]) [address] [place] [address] 25619 MCH (RBC) [Entitic mass] 26.1 pg Low 27-34 [facility] Comment on above: Performed By: #### 6 873-4, CBCA, CMP #### [facility] ([id number]) [address] [place] [address] 52856 MCHC (RBC) [Mass/Vol] 32.8 g/dL Normal 32-36 [facility] Comment on above: Performed By: #### 6 873-4, CBCA, CMP #### [facility] ([id number]) [address] [place] [address] 09425 MCV (RBC) [Entitic vol] 79 fL Low 80-100 [facility] Comment on above: Performed By: #### 6 873-4, CBCA, CMP #### [facility] ([id number]) [address] [place] [address] 84874 Monocytes (Bld) [#/Vol] 0.4 10*3/uL Normal 0-0.9 [facility] Comment on above: Performed By: #### 6 873-4, CBCA, CMP #### [facility] ([id number]) [address] [place] [address] 50477 Monocytes/100 WBC (Bld) 4.4 % Normal [facility] Comment on above: Performed By: #### 6 873-4, CBCA, CMP #### [facility] ([id number]) [address] [place] [address] 20362 Neutrophils/100 WBC (Bld) 83.6 % Normal [facility] Comment on above: Performed By: #### 6 873-4, CBCA, CMP #### [facility] ([id number]) [address] [place] [address] 16618 Platelet mean volume (Bld) [Entitic vol] 8.4 fL Normal 7-12 [facility] Comment on above: Performed By: #### 6 873-4, CBCA, CMP #### [facility] ([id number]) [address] [place] [address] 42320 Platelets (Bld) [#/Vol] 330 10*3/uL Normal 150-450 [facility] Comment on above: Performed By: #### 6 873-4, CBCA, CMP #### [facility] ([id number]) [address] [place] [address] 94944 RBC COUNT 4.99 X10E12/L Normal 3.80-5.20 [facility] Comment on above: Performed By: #### 6 873-4, CBCA, CMP #### [facility] ([id number]) [address] [place] [address] 47375 WBC (Bld) [#/Vol] 9.6 10*3/uL Normal 4.0-11.0 [facility] Comment on above: Performed By: #### 6 873-4, CBCA, CMP #### [facility] ([id number]) [address] [place] [address] 71821 COMPREHENSIVE METABOLIC PANE [place] 03-02-2024 Albumin [Mass/Vol] 4.2 g/dL Normal 3.2-5.3 [facility] Comment on above: Performed By: #### 6 873-4, CBCA, CMP #### [facility] ([id number]) [address] [place] [address] 77608 ALP [Catalytic activity/Vol] 77 U/L Normal 39-130 [facility] Comment on above: Performed By: #### 6 873-4, CBCA, CMP #### [facility] ([id number]) [address] [place] [address] 46579 ALT [Catalytic activity/Vol] 34 U/L High 0-31 [facility] Comment on above: Performed By: #### 6 873-4, CBCA, CMP #### [facility] ([id number]) [address] [place] [address] 85176 Anion gap [Moles/Vol] 17 mmol/L High 5-15 [facility] Comment on above: Performed By: #### 6 873-4, CBCA, CMP #### [facility] ([id number]) [address] [place] [address] 67801 AST [Catalytic activity/Vol] 20 U/L Normal 0-41 [facility] Comment on above: Performed By: #### 6 873-4, CBCA, CMP #### [facility] ([id number]) [address] [place] [address] 18243 Bilirubin [Mass/Vol] 1.5 mg/dL High 0.3-1.2 [facility] Comment on above: Performed By: #### 6 873-4, CBCA, CMP #### [facility] ([id number]) [address] [place] [address] 86251 Calcium [Mass/Vol] 8.4 mg/dL Low 8.5-10.5 [facility] Comment on above: Performed By: #### 6 873-4, CBCA, CMP #### [facility] ([id number]) [address] [place] [address] 68318 Chloride [Moles/Vol] 95 mmol/L Low 98-109 [facility] Comment on above: Performed By: #### 6 873-4, CBCA, CMP #### [facility] ([id number]) [address] [place] [address] 52207 CO2 [Moles/Vol] 12 mmol/L Low 22-32 [facility] Comment on above: Performed By: #### 6 873-4, CBCA, CMP #### [facility] ([id number]) [address] [place] [address] 35564 Creatinine [Mass/Vol] 0.96 mg/dL Normal 0.40-1.00 [facility] Comment on above: Result Comment: METH OD TRACEABLE TO IDMS STANDARD Performed By: #### 6 873-4, CBCA, CMP #### [facility] ([id number]) [address] [place] [address] 01633 GFR/1.73 sq M.predicted among non-blacks MDRD (S/P/Bld) [Vol rate/Area] 82 mL/min/{1.73_m2} Normal >59 [facility] Comment on above: Result Comment: Reported eGFR is based on the CKD-EPI 2020 equation that does not use a race coefficient. Performed By: #### 6 873-4, CBCA, CMP #### [facility] ([id number]) [address] [place] [address] 12557 Glucose [Mass/Vol] 582 mg/dL Critically high 65-99 [facility] Comment on above: Performed By: #### 6 873-4, CBCA, CMP #### [facility] ([id number]) [address] [place] [address] 46973 Potassium [Moles/Vol] 4.8 mmol/L Normal 3.5-5.0 [facility] Comment on above: Performed By: #### 6 873-4, CBCA, CMP #### [facility] ([id number]) [address] [place] [address] 00845 Protein [Mass/Vol] 7.5 g/dL Normal 6.0-8.0 [facility] Comment on above: Performed By: #### 6 873-4, CBCA, CMP #### [facility] ([id number]) [address] [place] [address] 67269 Sodium [Moles/Vol] 124 mmol/L Low 134-146 [facility] Comment on above: Performed By: #### 6 873-4, CBCA, CMP #### [facility] ([id number]) [address] [place] [address] 52002 Urea nitrogen [Mass/Vol] 20 mg/dL Normal 5-23 [facility] Comment on above: Performed By: #### 6 873-4, CBCA, CMP #### [facility] ([id number]) [address] [place] [address] 62714 Glucose Glucometer (BldC) [M ass/Vol]on 03-02-2024 BEDSIDE GLUCOSE LAB >500 Critically high 65-99 [facility] Comment on above: Result Comment: SEE LAB RESULTS FOR CONFIRMATION HCG ( test) Ql (U)o n 03-02-2024 Beta HCG ( test) Ql (U) Negative Normal NEG [facility] Comment on above: Performed By: #### 2 106-3 #### [facility] ([id number]) [address] [place] [address] 13266 Lactate (P denis) [Moles/Vol]o n 03-02-2024 LACTATE W/REFLEX 1.1 mmol/L Normal 0.4-2.[address] [facility] Comment on above: Result Comment: Result did not trigger repeat Lactate, re-order if needed. Performed By: #### 3 2133-1 #### [facility] ([id number]) [address] [place] [address] 52620 URN MACROSCOPIC NURon 2023 BILIRUBIN NAZ Negative Normal NEG [facility] Comment on above: Performed By: #### N UM #### [facility] ([id number]) [address] [place] [address] 53947 BLOOD/HGB NAZ Small Abnormal NEG [facility] Comment on above: Performed By: #### N UM #### [facility] ([id number]) [address] [place] [address] 50134 GLUCOSE NAZ 500 mg/dL Abnormal NEG [facility] Comment on above: Performed By: #### N UM #### [facility] ([id number]) [address] [place] [address] 33193 KETONES NAZ >=160 Abnormal NEG [facility] Comment on above: Performed By: #### N UM #### [facility] ([id number]) [address] [place] [address] 83144 LEUKOCYTE ESTERASE NAZ Negative Normal NEG [facility] Comment on above: Performed By: #### N UM #### [facility] ([id number]) [address] [place] [address] 82611 NITRITE NAZ Negative Normal NEG [facility] Comment on above: Performed By: #### N UM #### [facility] ([id number]) [address] [place] [address] 65876 PH NAZ 5.0 Normal 5.0-8.5 [facility] Comment on above: Performed By: #### N UM #### [facility] ([id number]) [address] [place] [address] 94799 PROTEIN NAZ Negative Normal NEG [facility] Comment on above: Performed By: #### N UM #### [facility] ([id number]) [address] [place] [address] 02736 SPECIFIC GRAVITY NAZ 1.015 Normal 1.003-1.035 [facility] Comment on above: Performed By: #### N UM #### [facility] ([id number]) [address] [place] [address] 58822 UROBILINOGEN NAZ 0.2 eu/dL Normal <1.[address] [facility] Comment on above: Performed By: #### N UM #### [facility] ([id number]) [address] [place] [address] 15937 VENOUS BLOOD GASon 4 CAMI'S TEST Normal [facility] Comment on above: Performed By: #### V BG #### [facility] ([id number]) [address] [place] [address] 35513 BASE,DEFICIT 13.0 MMOL/L High 0.0-2.0 [facility] Comment on above: Performed By: #### V BG #### [facility] ([id number]) [address] [place] [address] [place] [address] Body temperature 98.6 [degF] Normal 37.0 [facility] Comment on above: Performed By: #### V BG #### [facility] ([id number]) [address] [place] [address] 60085 HCO3 (Bld) [Moles/Vol] 13.9 mmol/L Low 20.0-24.0 [facility] Comment on above: Performed By: #### V BG #### [facility] ([id number]) [address] [place] [address] 19820 Oxygen saturation in Blood 48.0 % Low >80.0 [facility] Comment on above: Performed By: #### V BG #### [facility] ([id number]) [address] [place] [address] [place] [address] OXYGEN SOURCE RoomAir Normal [facility] Comment on above: Performed By: #### V BG #### [facility] ([id number]) [address] [place] [address] 09179 PCO2, VENOUS 35.3 MMHG Normal 35-50 [facility] Comment on above: Performed By: #### V BG #### [facility] ([id number]) [address] [place] [address] 37255 PH, VENOUS 7.201 Low 7.320-7.420 [facility] Comment on above: Performed By: #### V BG #### [facility] ([id number]) [address] [place] [address] 78993 PO2, VENOUS 31 MMHG Normal 30-50 [facility] Comment on above: Performed By: #### V BG #### [facility] ([id number]) [address] [place] [address] 49662 SAMPLE SITE N/A Normal [facility] Comment on above: Performed By: #### V BG #### [facility] ([id number]) [address] [place] [address] 31189 SAMPLE TYPE VENOUS Normal [facility] Comment on above: Performed By: #### V BG #### [facility] ([id number]) [address] [place] [address] 66044 Coding Summary 02-05-2024 Coding Summary HTMLBase 64 NlipzurtYMu7hZq+PG hlYWQ+TD4VRPJjA00u lWNhlT1hL4YSGQjFQv wgQVBQTElOSyIgbmFt AI2zhFPdIFEk IC8+MZ9wWWFxSrwioO Vcr2K3xVV3L76dzo7f SNkztDP0LEBvUlIyjg bah0kyuPb0YIcmXbhd OyBt KWTkgK26PLX6oO55Lv 74sJZywTYbi6blrNr4 FvOhRZCiZSI7rYyrEO hmm5IcBCTxH06rjWKc c2U6 IGNvbGxhcHNlOyBlbX M5kQ3dPSebplbmv2vp kwaoXrf5sx45wOXcc6 G3wSY2D1WdsnE0TUNs bGQg UwpxpIUZxR2uerpxq5 xvcjogIzAwMDAwMDt0 LKw3BOSieYyqTuIlXT 14JXZ9YXGnwgBaP6El LWFs mDxcGmR7w8Y7Ue1UQ4 ZJSeskG4CCOJCFLPyk dGQ+AA10hp72C1HbTz viHzw5HDJaHZL0nIT1 aD0n IPEuSUzrz6P7aEQ6N7 RtxuYjdz0lz7aqXZNv MPsbD72udJUhy1B2PS QzdLR6FIHzyNzhQeXp aG93 Oyc+BEPbrNteo7WmYk nml0jwa8kzuMt5Ried SGHpycDtuJlyRHS5b1 WiGn1wOEFeqOZ9fNE4 aD0i TnKyBpX0FHqsJ662Cj NyeCFeFolnS64lY2Qe dXA+AHGqHic6ECHobQ yfFE4sI4LpMNJqekbm bGVm ePdmNU5vODJhscreQQ IkgK9mBXEkW3r5AjTi CwX4XRkmB6MrTWWqnp weXl07dW9hGjHaEtR6 MGlu A0VicnX1UCHwqUQxVI ulODU4C74ky8R0HOTi YVAyRDL4xFT6sR2whT lnbjogbGVmdDsgdmVy dGlj HGdzSJveM381MQXtpY snPkNvZGluZyBEYXRl OiAgMDgvMDgvMjAyND wvdGQ+AHXfNGF6dByy PSAn eADeJPdaLj0llXbwrY kmXY5jWNUirepwDJEx kY0fDPHybXVkbSirQE 2fNRIrbponx115JuYz MHB0 STAfnWBzU3YrnX6uYq AuPRVcVSEhC8QppOJu SJtmH053BWexWaV8LF HwlgYeT3MeHDQvsDow OiB0 i9N8Hz0Fa2DorrbqL9 RhdHVzOiAgRmluYWw8 X0JzVnawnXJ+PC90YW EoYP53RGx3WKI5sOfs PSdi SHSzX1EgwY9sWjOqQE RkZGRkOyc+PHRhYmxl IHdpZHRoPScxMDAlJy GojGlvDQ1oQh2oZOOp LWNv vGebfXRdYjAjv9sgRC IySLwhAV1shWtnS3Sj hCO4DDXel3w8Xk93Y3 7fV3NqzSH+PGNvbCB3 aWR0 eM6jUtZeEwY8SRocP2 05HnGnxWUeEbmyi5gl u2tsuWd0SeV4TDOgpf XtbKovKLN0d5TiTs79 Y29s IHdpZHRoPSIxNSUiIH CrwJfier3dnE9yBt0+ EASvnVY5aSE1zF2zCs SwIwD1WQcgX956KhPe cCIv Bgngy0occ2xscFd1Au IwJSIgdmFsaWduPSJ0 q7DyKg46K0ZvdJrcj4 ZiUay5ii55kOUch2N8 bGU9 U9GcGLLdlstopYTijB qjIZ9tPAKfkjrkZAHi gD2fKYHpN4r3WtVoDx A4WMhoE6LxhzZ2WMNc bGQg RPSacXDTdO4bokbft3 xvcjogIzAwMDAwMDt0 LLp4BTMphUjqKsPsFH C1CuH2TMR9ySQsbM6a bGln hxhpnF9tEnc+UGF0aW ZfzERRQR8ePqopsOG+ UHDhQBV5jLpvRXopAY DotH2nEQDmZ7c2FkPx LjA1 UIqnA5GhprI6IAIwvX UsVCXknVNNqK3hymrv d8pkizxtYlSvBDCsJT o6CPa6PIMipBdoMkJb ZWZ0 WtI6UKK0jBVqtS1rrT jctspdbN8ySgt+Qmly fZqaEUA1IHq3H3MdSc r9PMLswCuzTC5slTRw ZGlu Fb7esWikrDtnHG2bKG Fhsqidi511CjNjs4fj ELUaoDZfAUgqDHK6P3 1nn2S7DKRtBPGwFOF9 dGV4 iO3bgMpdvmpfzSDqgT sgdmVydGljYWwtYWxp O029NIXnqVxxVtRfUJ z9H2SsYjx3SAQthWsx ZT0n sTRuICagSs5dqOnnmC vgIF7mMWDocnyhm702 BiOmb4wjUQKknHOyKQ doYQA7U72vv4P8YQNp MDAw RCM4jRG1dB3tdOuybf ogbGVmdDsgdmVydGlj KFoqFNfqO574IZAlxT wzRyMduAa0J7LrDpt6 ZCBz vBhlJE3gcYWwCCnvQx 8ivTicmIukZY2tJTWd drvar481WuAli9umYC LqkWVfDCenDCD2G79l b3I6 FWIaOYGqMFP7tQP0sF 1hbGlnbjogbGVmdDsg dmVydGljYWwtYWxpZ2 46IHRvcDsnPlBhdGll bnQg OVwiIQa4H5PkHdujhH I+EA19RJMzRX78dOKj mCXqj1xmhWy0OqNyQV DmQIP8hLdqYFtfn6Ma ZXIt G98ziEJkj5O8SCCsjF hhcHUoJlWcbHA6dN2k KSretgcyv6bswtwpSo ekk0eusd46mN28A35u IHdp ZHRoPSIzMCUiIHZhbG amnn1nbR6xLg0+PGNv zVY4bKB6fW7tCPVkKo D3URlkH942ZjGibCCo Pjxj v4iuw5pvzYr8QcP2XW EbyrNmzNctCCM3f0Bp Wm29I12aDXxoQNKhFA IqQTFfVKNsaMajvu2o dG9w Ii8+SVXrhMP7cHG2kR 0oFiAcEoN1UXehS524 OwTxhZUhBrpqE93aK6 JvdXA+EKDtBqy5VCDz dHls QB4ofNZpUDozFc7hUR R3LeRfWoBzGNmdU4Dd SLEbkddielzjePY1HT RtEGDkxI24Dg3heOqw MTBw jMVAiZ6resbih4tyli hsRgOfFANsPVc2JJr4 XOZzzBzoDgIuSVX1Vz C3NCN4pUUpcT0weFoa bjog hB7sZ8IdQKAzpyeqOq 83jI8bKvNzGuX0NEqo Oyc+CJ4QCHKKDYXXPO rIWLBEDNERJHJ1T5Sz Pjx0 VIExkFysQM5hsSNaRE aiMf2mfQzllQjvRF5k CHPmmiylJLWetF0wUL KrlGThbPvqFI9iHJFq bjtm d873QoJfKSF8TNRjoU QjH4NbhK1rNjPuLLOu NZFlP4UbgSNyLAqiN1 23VPywJbL4ITMotpWj Y2Fs WIGehPopMiX3w0F0Ue 9aIh6nHS7rYXewXB09 QY42sFBkx3T8hXS2G8 BhZGRpbmctcmlnaHQ6 IDAu HAPywE33oNXoUFvnZj 1tm9E9f128NFDcBYQo rP07Uo6yeTibNXJbmF ZDqG3xpiumq3slxwdz IzAw AFJmKXr4LBy6VRYniZ lvMdJrXBR2KdF7BJB5 uQBweQ2hzDssebfiiP 9wOyc+MzAgWWVhcnM8 L3Rk Bks2THTjlIqaYC5ueV KvFXqkKh4tjQykyIef SC9cOQYnbknnPBSbyK 6wSPTcrTNthAhoXJ0a NTBp hhepd550JyYtOUP9FE IyxIIgE8CupW3hUbFy TQOrFKGwN8VipCBiMP hmK818BYodRfD3OWAt cnRp U4NbYYQccZgiReP9s6 K5Xv3SKM1FMTA5X3Uz Eyp5RBCfiErlAP4iwL UlXYuwLh6vsDfhzLbz MC4w FRDxzalaEOFqwK3sEB GtjCYvhKphWU5aPQGe goykq986OtQjGEM1GA DpaSLmF5CylE0aWwYr MDAw RDFkL7OnxVTfIPexI7 63YAnzHbM5HZCrpaBi L7IcKCFvsVjbYjL5r1 R2Ky6PoHUfN7VlN4x7 L3Rk PjwvdHI+MK04CTDfMH 29sAPdsTCbj5dpbJi7 XaIcYKQmAFD3pBrpNC zqv1MxWAGcC20wxTCl c2U6 IGNvbGxhcHNlOyBlbX Y6wX2cQBnyioixg4rn bbcbZuguz6agsr85tB 57G00qMEvyWYTuOKOv MCUi THWomFtsoo9ihC1rTi 8+QOIclCJ7mUE0lQ0y PlIqRfM4NQndT721Hx VanXMlUykng2flz9pk dGg9 IjIwJSIgdmFsaWduPS K2a8KcTp61Q98gSDbd ZHRoPSIyMCUiIHZhbG upao8hfV3bJe3+PC9j b2xn ux23zY71fVB+PHRkIH F2mMacUKdgXCRxoP7u ZWxxAsW1QECgCiNhaB 83aVNaOLsfYm8yrItc dDog VO6wKDKaabedw310Pf Yyy8luYSAosFUmJFsp AUF5E72dz0M2EKZqGR ErCEQ3jRB3xW2msGyu bjog bGVmdDsgdmVydGljYW sdKCwsZ938ECUcsTrt WaEpiUQzK0gwghKGFV 1lOjwvdGQ+PHRkIHN0 eWxl ZFhhLEKryT1dLZInW6 o0GhCoXhW8FVofM8No rmM1FGAifBFkENVxtW IStX7fwxteo9urqxnp IzAw YVDeYYn5OFh2VBOqvW meGpEiFED9EgC9GLO3 wHBbfU4knQwrsupfvR 9wOyc+RklOOjwvdGQ+ PHRk SAF4cHpfKDouEGNjrW 1wXHQuV8z3CvEfFnX8 LGkzS5IwtzJ2YWBoaU SiFLJbcLNZcC3gcsnc b2xv owyjDmAgKSRwMHh2NF e2CZEapYajTcGoUHE5 SxJ3IMG5wECtvG6qtE icoomjrK2hMrp+TVJO Ojwv dGQ+TZPyNLY8fStrYX ylOKPenF8fVAReD3e0 PjJtPwL2HJqgX2Yjjh I6DQUhmWWnCMAxlBOK aW1l lvyfq4ijrvytMbYmYU VuJPs3UQj5SEXawVwn PeUqHHP3NiO8DUV9rS BzfI3wsSpnlbwulM3i Oyc+ ISH1JLN2IK88CT47X4 RyPjwvdGFibGU+PHRh YmxlIHdpZHRoPScxMD YdKjCcbQvzHH8sHg4k ZGVy LWN (more content not included)... [facility] ED Note-Nursingon 01-29-2024 ED Note-Nursing Attempted to get a hold of patient to notifiy her of her results. The phone number that was listed is incorrect as well as the emergency contact. This nurse called Dr. Jeremy julien which is patients PCP to obtain contact info on this patient. Message was left with the [facility]. Awaiting a call back from Neyda. Endo Tech called and spoke to Neyda DIETRICH at Dr. Nicole office. Neyda states that she is no longer a pt. with them. [facility] C Urineon 01-28-2024 C Urine Urine Culture ordered as a result of parameters set on specific urine dip and urine microsopic results. >100,000 cfu/ml Escherichia coli ORGANISM EC ------- SUSCEPTIBILITY ------ ORGANISM ID: 1 ANTIBIOTIC INTERPRETATION KARIN STATUS [...] <=4 Verified Tri/Sulf R >2/38 Verified Normal [facility] Comment on above: Performed By: #### 1 [id number] ####[facility] (DEFAULT)[address] [place] [address] ED Clinical Summaryon 2023 ED Clinical Summary [facility] - Emergency Department [address] [place] [address] ED Clinical Summary PERSON INFORMATION Name: DOUGLAS CORDOVA Age: 28 Years Sex: FEMALE : 1995 MRN: Acct#: Visit Reason: Nausea and / or Vomiting; Diarrhea; POSS PREGANT AND EXPOSED TO COVID Arrival: 01/26/2024 18:36:09 Discharge: 01/26/2024 20:25:00 LOS: 000 01:49 Check In: 01/26/2024 18:36:09 Checkout:01/26/2024 20:25:00 Address: [address] [address] PCP: ARCADIO IGLESIAS PROVIDER INFORMATION Provider Role Assigned Unassigned Camelia Salgado RN ED Nurse 01/26/2024 18:51:10 Gustavo Marc MD ED [...] Chief Complaint Pt states that she has nausea/vomiting/di arrhea that started today. last stool was just [...] Resolved Disease caused by 2019 novel coronavirus ([id number]): Onset on 03/16/2023 at 27 years. Resolved. Comments: 03/16/2023 CDT 10:14 CDT - SYSTEM Problem added by Rule (IC_COVID19_MAGR_P LANDEN) following SARS-CoV-2 (COVID-19)/Flu/RSV (GeneXpert) from Nasopharyngeal Swab collected on 16-MAR-2023 09:34:00 EDT tested positive for COVID-19. Diabetes mellitus ([id number]): Resolved., Reviewed as documented in chart. Surgical [...] some day (more content not included)... Normal [facility] ED Note - Physicianon 2023 ED Note [...] Chief Complaint Pt states that she has nausea/vomiting/di arrhea that started today. last stool was just [...] Resolved Disease caused by 2019 novel coronavirus ([id number]): Onset on 03/16/2023 at 27 years. Resolved. Comments: 03/16/2023 CDT 10:14 CDT - SYSTEM Problem added by Rule (IC_COVID19_MAGR_P LANDEN) following SARS-CoV-2 (COVID-19)/Flu/RSV (GeneXpert) from Nasopharyngeal Swab collected on 16-MAR-2023 09:34:00 EDT tested positive for COVID-19. Diabetes mellitus ([id number]): Resolved., Reviewed as documented in chart. Surgical [...] days Comment: vapes daily - 05/29/2023 22:42 - Shellie Turner RN 01/26/2024 Electronic Cigarette Use: Use, within [...] Head: Normocephalic, a (more content not included)... [facility] ED Note-Nursingon 01-26-2024 ED Note-Nursing Pt given discharge instructions. Pt told to follow up with her family DR. Drink plenty of fluids including gatorade or propel pt told to return if any problem s [facility] ED Note-Nursing Pt arrives with complaints of diarrhea, nausea/vomiting Pt states that she vomited earlier today and has eaten since and retained but then started having diarrhea Pt states that one of her house mates in [facility] tested positive for COVID. Pt states that she was also not sure if she may be . [facility] ED Patient Summaryon 024 ED Patient Summary [facility] - Emergency Department [address] [place] [address] PATIENT DISCHARGE INSTRUCTIONS Patient Information Name: DOUGLAS CORDOVA Age: 28 Years Date of : 1995 [facility]: [id number] Reason For Visit: Nausea and / or Vomiting; Diarrhea; POSS PREGANT AND EXPOSED TO COVID Arrival Time: 01/26/2024 18:36:09 Primary Care Physician: ARCADIO IGLESIAS Attending Physician: Gustavo Marc MD Comment: Visit Diagnosis: Diagnoses This Visit Acute diarrhea (R19.7) Close exposure to COVID-19 virus (Z20.822) Diarrhea ([id number]) Nausea & vomiting (R11.2) Nausea and / or Vomiting ([id number] 4waeg) The Pharmacy at [facility] is open Friday through Friday [...] alcohol and/or drug addiction problems; contact the [facility] 20/01 Crisis Hotline -Text 2DPVH ql 727451. If you received any narcotics, sedation, or [...] legal documents With: Address: When: ARCADIO IGLESIAS [address] [place] [address] [phone] Business (1) Within 3 to 5 days [...] family doctor, PCP, or a family doctor evaluation specialist assigned to you on your paper work. Call to make an appointment within the specified time as instructed. Return to emergency department if you have any concerns especially recurrent symptoms of shortness of breath, weakness, dizziness or any persistent symptoms that concerns you. Medication Information: The exam and treatment you received today in the [facility] Emergency Department were for an urgent problem and are not intended as complete care. It is important for you to follow up with a doctor, nurse practitioner, or physician?s chemist assistant for ongoing care. If your symptoms [...] so we can reach you if necessary. [facility] Emergency Department has provided you with a complete list of medications post discharge. Please inform your napper fixer/provider of your visit and for further instruction on these medications. Any specific questions regarding your chronic medications and dosages should be discussed with your primary care physician(s) and/or pharmacist. Additional medications on your home medication list not specifically addressed. Please contact the ordering physician if you have questions about these medications. Durable Medical Equipment for Prescription (Proficiency DASH PODS (GEN 4) 5PK) change q [...] Diastolic Blood Pre (more content not included)... Normal [facility] Test Urine 1 U Preg Negative [facility] Comment on above: Performed By: #### 4 [id number] #### [facility] (DEFAULT) [address] [place] [address] U Preg Internal Control Pass [facility] Comment on above: Performed By: #### 4 [id number] #### [facility] (DEFAULT) [address] [place] [address] SARS-CoV-2 (COVID-19) PCRon 01-26-2024 Employed in healthcare? Unknown Invalid Interpretation Code [facility] Comment on above: Performed By: #### 4 [id number] #### [facility] (DEFAULT) [address] [place] [address] Group care resident? Unknown Invalid Interpretation Code [facility] Comment on above: Performed By: #### 4 [id number] #### [facility] (DEFAULT) [address] [place] [address] In ICU? Unknown Invalid Interpretation Code [facility] Comment on above: Performed By: #### 4 [id number] #### [facility] (DEFAULT) [address] [place] [address] Internal Control Pass Normal [facility] Comment on above: Performed By: #### 4 [id number] #### [facility] (DEFAULT) [address] [place] [address] status? Unknown Invalid Interpretation Code [facility] Comment on above: Performed By: #### 4 [id number] #### [facility] (DEFAULT) [address] [place] [address] SARS-CoV-2 (COVID-19) RNA CARMEN+probe Ql (Unsp spec) Not detected Normal Not Detected [facility] Comment on above: Result Comment: Perf ormed by PCR methodology. Performed By: #### 4 [id number] #### [facility] (DEFAULT) [address] [place] [address] SARS-CoV-2 (COVID-19) RNA CARMEN+probe Ql (Unsp spec) Unknown Invalid Interpretation Code [facility] Comment on above: Performed By: #### 4 [id number] #### [facility] (DEFAULT) [address] [place] [address] Symptomatic as defined by CDC? Unknown Invalid Interpretation Code [facility] Comment on above: Performed By: #### 4 [id number] #### [facility] (DEFAULT) [address] [place] [address]47[address] UA Bjhla3wg 01-26-2024 UA Amorph. Few [facility] Comment on above: Order Comment: Urina lysis Microscopic order added on by Discern Expert Rules system. Performed By: #### 4 [id number] #### [facility] (DEFAULT) [address] [place] [address] UA Bacteria Trace [facility] Comment on above: Order Comment: Urina lysis Microscopic order added on by imbookin (Pogby) Expert Rules system. Performed By: #### 4 [id number] #### [facility] (DEFAULT) [address] [place] [address] UA RBC 0-2 [facility] Comment on above: Order Comment: Urina lysis Microscopic order added on by imbookin (Pogby) Expert Rules system. Performed By: #### 4 [id number] #### [facility] (DEFAULT) [address] [place] [address] UA Squam Epi Few [facility] Comment on above: Order Comment: Urina lysis Microscopic order added on by imbookin (Pogby) Expert Rules system. Performed By: #### 4 [id number] #### [facility] (DEFAULT) [address] [place] [address] UA WBC 3-5 [facility] Comment on above: Order Comment: Urina lysis Microscopic order added on by imbookin (Pogby) Expert Rules system. Performed By: #### 4 [id number] #### [facility] (DEFAULT) [address] [place] [address] UA w Culture if Ind Standard on 01-26-2024 Breakpoint UA [facility] Comment on above: Performed By: #### 4 [id number] #### [facility] (DEFAULT) [address] [place] [address] Color (U) Yellow [facility] Comment on above: Performed By: #### 4 [id number] #### [facility] (DEFAULT) [address] [place] [address] Culture? Indicated Invalid Interpretation Code [facility] Comment on above: Result Comment: Resu lt created by rule GL_MAGR_ADD_UA_CULT1 Result created by rule GL_MAGR_ADD_UA_CULT Result created by rule GL_MAGR_ADD_UA_CULT1 Result created by rule GL_MAGR_ADD_UA_CULT Performed By: #### 4 [id number] #### [facility] (DEFAULT) [address] [place] [address]353 Glucose (U) [Mass/Vol] mg/dL Normal [facility] Comment on above: Performed By: #### 4 [id number] #### [facility] (DEFAULT) [address] [place] [address] 17940 Ketones Ql (U) Negative [facility] Comment on above: Performed By: #### 4 [id number] #### [facility] (DEFAULT) [address] [place] [address] 45787 Micro? Indicated Invalid Interpretation Code [facility] Comment on above: Result Comment: Resu lt created by rule GL_MAGR_ADD_UA_MICRO Performed By: #### 4 [id number] #### [facility] (DEFAULT) [address] [place] [address] 11153 UA Bilirubin Negative Normal [facility] Comment on above: Performed By: #### 4 [id number] #### [facility] (DEFAULT) [address] [place] [address] 54184 UA Blood TRACE Abnormal NEGATIVE [facility] Comment on above: Performed By: #### 4 [id number] #### [facility] (DEFAULT) [address] [place] [address] 14022 UA Clarity CLEAR Normal CLEAR [facility] Comment on above: Performed By: #### 4 [id number] #### [facility] (DEFAULT) [address] [place] [address] 14480 UA Leuk Est Negative Normal NEGATIVE [facility] Comment on above: Performed By: #### 4 [id number] #### [facility] (DEFAULT) [address] [place] [address] 07774 UA Nitrite Negative Normal NEGATIVE [facility] Comment on above: Performed By: #### 4 [id number] #### [facility] (DEFAULT) [address] [place] [address] 59701 UA pH 6.0 Normal 5-8 [facility] Comment on above: Performed By: #### 4 [id number] #### [facility] (DEFAULT) [address] [place] [address] UA Protein Negative Normal NEGATIVE [facility] Comment on above: Performed By: #### 4 [id number] #### [facility] (DEFAULT) [address] [place] [address] UA Spec Grav <=1.005 Normal 1.001-1.035 [facility] Comment on above: Performed By: #### 4 [id number] #### [facility] (DEFAULT) [address] [place] [address] UA Urobilinogen 0.2 mg/dL Normal 0.2-1.0 [facility] Comment on above: Performed By: #### 4 [id number] #### [facility] (DEFAULT) [address] [place] [address] Urine Source Clean Catch Normal [facility] Comment on above: Performed By: #### 4 [id number] #### [facility] (DEFAULT) [address] [place] [address] Coding Summary 11-25-2023 Coding Summary [facility]Base 64 YakslonpACe0qXb+PG hlYWQ+AM9IOSCpV13j mHRloU6vB3KMMMkSRf wgQVBQTElOSyIgbmFt JM6pzTQaZPLc IC8+PL0cSKEsMriybC Pfc5L5zXU6C63fwx7o GQfjzNG7XBBgXuEede wnz4ivtIk3UIijVmea OyBt LZLmrO99ZTC5gZ70Lz 60hJLveCGow3vwyAu9 PwKuWYUfSIG2pZbdFF suv6OmFPZnL16rbBIh c2U6 IGNvbGxhcHNlOyBlbX O6dM3dCRscaopgl8gu aiezKcy9aa19aBTxn1 N6tBP4P0JghcY5DNEz bGQg CzbbqOYQzV8idulux0 xvcjogIzAwMDAwMDt0 RXj8PIHqlXiwVwVqGD 56LHX9EOPvhgRfJ1Oh LWFs wJoiFgT1r1Q4Ko7NK8 LIPbikK3JRTPZCIIds dGQ+GC94kg78L3DxDj naIbt6ZEEoNZC1cRV8 aD0n LNMcDMwjd4L6wBB5F2 HjrlGphn5ee1isETQb TKnuY33zjTGag1V6JR UycLM3LBAruAypIuXt aG93 Oyc+CQBezQkhi6TeBa smb7fpz6iyjQw0Nyea SHEtdwBskFdtPXI0u2 ItJh9wASEhyGT9iTC4 aD0i XeViNvM9TAlvQ813Nj AbyXHoKhuoG52lN1Pw dXA+UDClKkq6LOIxjO amEQ9iA8FdFUMygxqa bGVm uUvuZS3iZKLzztezKZ TjiL6eDJSoA5f9FyRl XfV3DBbzE9GtHPCzgg haWm09mV4xXiUyFsT3 MGlu G2YoldY0ZYPtuACcGH ydAAR5P86wh6Z2WLRr ETHzKQM3sXG2sY7saI lnbjogbGVmdDsgdmVy dGlj XCwjARpuX998TRWcmL snPkNvZGluZyBEYXRl OiAgMDUvMjgvMjAyND wvdGQ+TRYnLMM0xBrk PSAn zNPkRFisVu1svPtcjJ vcUM1mAZXxxftrSBJy pG2sSXGtxQIsjIfkQA 6yIDErgeyrb818CaUs MHB0 JYHhdIWpJ1FknZ0ySy JdEOVzNZPjR3ZxpTCb YLljH818XKwqZpM8WS JdbeDaE8EfKMUnsSgc OiB0 i4I9Hm9Zh1KgftzeG1 RhdHVzOiAgRmluYWw8 S4KqKewrfWW+PC90YW KdBU04QZd5WAT4jRku PSdi HSCvG4TxoU2lIcYbNF RkZGRkOyc+PHRhYmxl IHdpZHRoPScxMDAlJy IugAbbPU1aKw2aSUQx LWNv uJpbvXDfMyApc7iqMS NhTZowPH4xkTycX0Ud jZM3HVTow2r5Mk78Z1 2iV1GfaUJ+PGNvbCB3 aWR0 eX9vIoTnXuC8WUxkE1 19XqZzyZNdCpshx6nj h6sojXl9RoI8XOHutk XanXmcLIU5i2PkAk55 Y29s IHdpZHRoPSIxNSUiIH LmaTlgvy4rmI6fSl7+ IMOztMQ3vWB0zN6iHt OeUiO4WYwdE926FkTd cCIv Tjjjb7vff9prqHf6If IwJSIgdmFsaWduPSJ0 y7QiWe75P8LqnKpep3 InIql0qs29lOXty5C3 bGU9 N9IoPEQseefnvGAftZ npCC9cHNFlwtssFQBv bN0tVGGgH5d7YnGxPo F9DNcfY9IqytX1MMDm bGQg UDIrvKFPhP8gwoabi6 xvcjogIzAwMDAwMDt0 FXb3MWLntLzjYjBdRU C5XgG1ZJA1zCWkvE6z bGln ltewoM8oUba+UGF0aW EtmQZIXD4kDpubbRP+ KTMmZAF9zPalBObpBC PgiR6lTAHdH7t0QjLx LjA1 INnfA4DnlbX6JIRhbW TzDCOdsYVTsJ9zuyhr p8zpmdxpMnPsHAPkIW k1AOv7MELboHqpSdTl ZWZ0 RtW3VMZ1xHKmaI9ylX aeohcfnM1nVct+Qmly rYjgWTL9DIr7X6VhSr e8TWMwiSgmLB4sqZMh ZGlu Ln7otEcdgSayPY9tFW Shhgezw299TmKpt0nh FPVsnTUdCWwwSBO8H8 7yu8Q5AVQwQAJgSRZ9 dGV4 bY8gdGobbwardLLfeN sgdmVydGljYWwtYWxp A386ZAOurWkeLfThPO y3C9NcEzn5LSCrwQfa ZT0n bCTnFJipLe7wsWglxQ qgRP7sILTellmlk770 KoZsw8iyYKMpjVMiTW zfNAH0L79sk1U2NQNv MDAw PNU5pIO9lR3iaUfmzo ogbGVmdDsgdmVydGlj WZnyGFfkT728YJVjcF ejBbZkrJv6H6TlIal8 ZCBz qHpwDA2jwOSoEEzjNg 9ydMcvqBcxVM6sTGHx ufwnm976LaUnb7ggVE HnaCNaSCcxANP8D43o b3I6 QABfRKGsALL9cOC1wR 1hbGlnbjogbGVmdDsg dmVydGljYWwtYWxpZ2 46IHRvcDsnPlBhdGll bnQg ODzcZAh0L9KdMutmiK I+AV87UMPaGF67eSAh lYOtp9ntyNz7YqUxUC ShLUD6oPdgSXpkq2Md ZXIt P19esLYma0N5XTQwbX yryBHgPbEkgVD9aF9x PWkucxfdg6kazpvrRd btc5pelj13vN64I91t IHdp ZHRoPSIzMCUiIHZhbG rafe6fjK2pXw2+PGNv hPE5oVM6rJ1lAACvNr Y1XRzgZ513UhNklKDy Pjxj i8ehz7oclAd4OpR5BQ PloxFnpWzxZNC9e4Ib Bp67E23mHZjyZWOtPQ RiCPCoVQEhxQsbud3r dG9w Ii8+OBAdkOB2hXJ1uA 3nXqSfKcT1CJvgI814 QaFnpXLfOsxvQ64aP5 JvdXA+CSHjUpc3USRn dHls DE8kaAEjOMhyZo4gRT U2RaHtKoDvOGuzV2Px FZBpnlnnlnmwlNG3JM PiNSVxbU06Ef1dfKpk MTBw jQXYsT5cxkjfm5daqb bsHlEjAURzGPg3UFo0 UJMuiYjhJoQdAVG7Vt F7XQX2sKVooF7kjUvf bjog nJ1oR9ZpHQFjztbtJq 80tF8kSePvBhF3XGkj Oyc+RM3IQPVJJBGBNY eLBKYIWYTYMLW5O7Kq Pjx0 CDDtxEgpKX1glLZxWP rdOt3obEsrjLkqBX9j KAPbdoixFRWzqD5tVJ SgjWAnxBjrNU7uGMRr bjtm f816CtJnVNL0RRSprJ PyC0AmcQ3kVhNaFTFz NEPhZ3PywXXmXIgzV8 36YAvoOaS9PXRxyuLi Y2Fs CZJhpNzsQjW6p6G3Lo 0xCj1mCY4yKOayXS56 FI72wVIvf7Z5gCU7N9 BhZGRpbmctcmlnaHQ6 IDAu IQFwsZ86mUCbCZfjWj 4nn9E5w873XCBjKOBf mY17Rz4qlAvySVQmqD ABgE2vwywmf1clmxii IzAw BOPkGTh5FOe7YZPcaS kzPhQxFXW4RyU4CPX2 dTEzzR6cjLetfexynF 9wOyc+MzAgWWVhcnM8 L3Rk Pvc4PCCfnVeqSO8rvQ KbHCedBb8mbDribLcr LF8cILQukqucXDCfhJ 0vOJLabMReqUysQX8e NTBp rksei132UoAzUKI1SA BrfKMdF2CflL5hAiPv QZAqOREyU4LswIDcMD urK791NJwfVvE9XLYr cnRp C0HvYZTxeCoxGzF2b6 Y2Am2RLF3EFSW1H0Nw Xij5CTVywJlrSD4ppP MeUTeaLo5tqVafhCry MC4w MNFcmvmhZYKpdM0zSH SuwGWuqZbpZZ3mQZUe gzzsz583OuAbULN0GW FlsTOzN9ZefT5jFzTq MDAw EPIiB4NobIAtGAhbK8 89AHppIeH8CRUfnrQt H7AaOBZzqSnvKgF8e6 Z9As0QvLVzF1WdR0x6 L3Rk PjwvdHI+CH33JHQwVP 42zSEgwAPlh5aftSg9 PlKtQORnSME6zQjxXE rts8WpSURpV79snBGa c2U6 IGNvbGxhcHNlOyBlbX D6yQ1dRRpvukiqt5ne pwnkDxyay1scuv80oE 85C55sRGeeSRQuXRPg MCUi XQEtdTbkhm9xhS3uHr 8+YLUmbOX1qLK3aC0u AmTwKoO1CUemX699Au FgnPYyVrfhl0ipx4qv dGg9 IjIwJSIgdmFsaWduPS L4x9AnFb37L22nRAcw ZHRoPSIyMCUiIHZhbG humw3tbH6cEb7+PC9j b2xn em89yN12nKL+PHRkIH U2yNajGUnxDTAjzZ5f KZxgUeM2MDMaHrQxnD 29dRFtMQxoJv9iuNvo dDog ZA9yNBDfwifgf512Oc Inv0sbIDJfaICjGMia EOA8C86wg1I0NFIfPD VcMHA1pVS3pD0gcEfq bjog bGVmdDsgdmVydGljYW pcFHgbQ131MSNdnPmy NiYpwUNjX8qgypGIKJ 1lOjwvdGQ+PHRkIHN0 eWxl VOgmZFKscL3rUXChI7 i3JxElGqC7VNopM0Ix ahC7KZEbbGCxBKGfpZ QFmG2lixlhz3dnrlku IzAw VYSeLAu3NVp9TUBcwW suAcHuPYX7OiV1MWK9 bFPswP3olRtzyaatoD 9wOyc+RklOOjwvdGQ+ PHRk MLO8lSkcFPasCIBeuS 0hNAPzT8d1GdVtEqD4 GUciF0MnkfA6WVEfiE BkTULhuUMLxE5hxauo b2xv nuvmXmYkAKHcUGu5IO d6FKSkcFnsMvDjKAI8 LdN0EZJ8iMAfdE9lsE idluxxsN9jLvh+TVJO Ojwv dGQ+OELoNZQ2rDurSF thMJJwiF0hTPJqN7u4 IvZdDlE8PSmsP1Mnno L4GLLjfHFhDKOsfIDC aW1l qptmw1uamkkqUiLhXD RkMZi9DJi2NWMrsRtw JtSqYLE0IdG9XNF6uJ SdmM3luEalngbnfE3h Oyc+ WMN9HII4ZJ24GY60U7 RyPjwvdGFibGU+PHRh YmxlIHdpZHRoPScxMD HrCrKhfUkaBE7jLe2i ZGVy LWN (more content not included)... Normal [facility] ED Clinical Summaryon 2023 ED Clinical Summary [facility] - Emergency Department [address] [place], [place] [id number] ED Clinical Summary PERSON INFORMATION Name: DOUGLAS CORDOVA Age: 28 Years Sex: FEMALE : 1995 MRN: Acct#: Visit Reason: Skin problem; SKIN PROBLEM- LFT ARM Arrival: 11/17/2023 13:52:18 Discharge: 11/17/2023 15:05:00 LOS: 000 01:13 Check In: 11/17/2023 13:52:18 Checkout:11/17/2023 15:05:00 Address: [address] [address] PCP: ARCADIO IGLESIAS PROVIDER INFORMATION Provider Role Assigned Unassigned Mami Sahni PA-[facility] PA 11/17/2023 14:18:47 Catherine RN, Jennyfer [...] Home PATIENT EDUCATION INFORMATION Instructions: Cellulitis, Adult, Uugm-ls-Hjzs Follow-Up: With: Address: When: Call office to schedule an appointment Within 3 to 5 days DIAGNOSIS: 1:Left arm cellulitis Patient Understands: Yes - Patient/family/car egiver verbalizes understanding of instructions given Comment: Normal [facility] ED Patient Summaryon 024 ED Patient Summary [facility] - Emergency Department [address] [place] [address] PATIENT DISCHARGE INSTRUCTIONS Patient Information Name: DOUGLAS CORDOVA Age: 28 Years Date of : 1995 Reason For Visit: Skin problem; SKIN PROBLEM- LFT ARM Arrival Time: 11/17/2023 13:52:18 Primary Care Physician: ARCADIO IGLESIAS Attending Physician: Jerson Estrada MD Comment: Visit Diagnosis: Diagnoses This Visit Left arm cellulitis (L03.114) Skin problem ([id number]) The Pharmacy at [facility] is open Friday through Friday [...] alcohol and/or drug addiction problems; contact the [facility] 20/01 Crisis Hotline -Text [phone] bi [phone]. If you received any narcotics, sedation, or [...] treatment you received today in the [facility] Emergency Department were for an urgent problem and are not intended as complete care. It is important for you to follow up with a doctor, nurse practitioner, or physician?s chemist assistant for ongoing care. If your symptoms [...] so we can reach you if necessary. [facility] Emergency Department has provided you with a complete list of medications post discharge. Please inform your napper fixer/provider of your visit and for further instruction on these medications. Any specific questions regarding your chronic medications and dosages should be discussed with your primary care physician(s) and/or pharmacist. New Medications [id number], [address], [place] [id number], [phone] doxycycline (doxycycline hyclate 100 mg oral capsule) 1 cap(s) Oral (given by mouth) Every 12 hours scheduled time for 10 Days. Refills: 0. Additional medications on your home medication list not specifically addressed. Please contact the ordering physician if you have questions about these medications. amphetamine-dextro amphetamine (Adderall 30 mg oral tablet) 1 tab(s) Oral (given by mouth) every day. amphetamine-dextro amphetamine (amphetamine-dextr oamphetamine 30 mg oral capsule, extended release) 1 cap(s) Oral (given by mouth) every day. Durable Medical Equipment for Prescription (Proficiency DASH PODS (GEN 4) 5PK) change q [...] Problems List (more content not included)... Normal [facility] POCT Glucose Levelon 024 Glucose [Mass/Vol] 307 mg/dL High 74-118 [facility] Comment on above: Result Comment: Resu lt corrected during lab audit SD 09/16/2023 13:27:08 EDT Performed By: #### 4 [id number] #### [facility] (DEFAULT) [address] [place] [address] Glucose [Mass/Vol] 384 mg/dL High 74-118 [facility] Comment on above: Result Comment: Resu lt corrected during lab audit SD 09/16/2023 13:27:08 EDT Performed By: #### 4 [id number] ####[facility] (DEFAULT)[address] [place], [place] [id number] Coding Summaryon 09-01-2023 Coding Summary HTMLBase 64 UbupxanhWLw3pUb+PG hlYWQ+EQ1QQTSzR70v yWZiuY6qR0EOXKkYMm wgQVBQTElOSyIgbmFt FC2rvEVyUBZn IC8+RM3yDYPiXkmvrF Ihi8Y5xQL7H77jrs3y SSawqFJ6RTGpEtCtku oss6azeKv2WSmyGija OyBt WGFmeU96AIR3fA39Fr 91mRMnyUHfk4aokZy4 ZqFgGURrUIT9kZimQN fns3ZzJSZrG23lkOSm c2U6 IGNvbGxhcHNlOyBlbX L3qM5yKMhyqlnkv3yn tyyiLvj9mx99yWJvq6 J1oXQ3X7BijpL5ZTEv bGQg UmmlxYSEuU7lqtbqv5 xvcjogIzAwMDAwMDt0 UWq8ILYhpZulQhXiSG 91UQW6XFYjzdKoK7Pn LWFs qHytPwW2c0E5Hk4RV9 EBNhhsM0OBXCGQIRgz dGQ+GT06eq53X9YaOk spCwq5HAXjTMZ8lCK0 aD0n EROpZOznr3V1pIH8C5 RxxgMgfh7af7mlMJQn BTwnU26zhVXkn2E0DL RnqZS1IYLxwHbrZdLc aG93 Oyc+AJOynQwgp6FbXx wus8xhp3amsAd7Rxcj DAQlcdKbfMkdVSJ7t2 XgRb3xKMLcmJB0dXO2 aD0i XrHsCfQ9TDuqU860Ig SkrYFpUuhmF02wW3Ma dXA+UOMqJum2DHPkpO uoAC4jF2NlSLVsogjs bGVm wWiqBA2tTXJfdwtkGI SylW7rCPDgO2b2YqXd MmH2RBjvZ0NmIZWzhe icAg56vD4wKzGjGmF7 MGlu Y8XxnpW3GWZpdSApNT yxMHN8X87fj1T8BQHj OCMiLLT0sAM4dG0hwQ lnbjogbGVmdDsgdmVy dGlj GNfkHLbvO070JYDuzM snPkNvZGluZyBEYXRl OiAgMDMvMDQvMjAyND wvdGQ+AXNcOJO3jMzn PSAn kFFtKLxnZl4ioCkcdD htGB5pGSUxocysKVTp cX2ePUCjhSBzePxiGM 5aPNWvghlef896IcCq MHB0 XZIkoUHoJ5PydF1tLo KyNPIkAZDeI5RiySNq FKndD739XVquGkB6UB MrxxKbC0IsUSIhcJpr OiB0 s5W3Fv7Jl3DelxbrG1 RhdHVzOiAgRmluYWw8 A8EjWskyfWE+PC90YW LgYW49WSm0OWP8rVqq PSdi YJAxG1GptB0pPqNgQT RkZGRkOyc+PHRhYmxl IHdpZHRoPScxMDAlJy GrsOyfEG9zPj1fBIJd LWNv vXjlbHPcZdQgy5epOG DbTFgmSK1ohOseO2Zp lVX2ELBdc3i7He08C6 7cJ2XdaSA+PGNvbCB3 aWR0 mA5dMwFtLdH3FVpjR0 19BrZhjOUyAfzhh4wk n4gtcBn2FdD9XHCxru FirBtlFAK1q9KoVb96 Y29s IHdpZHRoPSIxNSUiIH HlgZbqvz8uvL4mDv9+ WDVpuRM7dSO9wE4pDo VqJcF0VAkcM692CaCw cCIv Hfswr6ifl9fzgJo1Sw IwJSIgdmFsaWduPSJ0 t6UdBc92Y2DkzDhro9 LtTuh1xz39hPCon2U2 bGU9 G2WnWRLjtgztjZOjrN hfFQ1oBSMxogfiJQMv xB3dIDNqK3t3ZcLnZt W9JQraC4DrskH6UXUt bGQg HTRtuJBBeP4jaaqsh7 xvcjogIzAwMDAwMDt0 QKd5GEMizMpjSlScNR M2YiM9MXH7dASfdO7r bGln xbhodI6yFde+UGF0aW TkvYCMOL4fRoroaPC+ ITWoDQF7uEvqLJdrXC YjfC1gWBGfY9m2ZlKl LjA1 YEisC2SuirJ6OZUtwU DgDFVsgMLSnP8xsvoq j2xnyzebZsBsCDVzJG s6BOr6UCRcrZruBfRc ZWZ0 OtH3WLR0hYGqoE8ziX mlbplilO4yYng+Qmly dClyHAA3MNm6E1DiBm e2YJXfyNftJY4iqQWl ZGlu Ry0qpQrfpWipPH6zDL Iafboju322MxDow7kl ZRQsuBXzYGucAHT6Z2 2al7M3FJPjFNGcZPM9 dGV4 fQ7cbCsqhhlkcWVnpF sgdmVydGljYWwtYWxp Q924WMQxmXvfYtUyRO h5D1OwTnk8MGSsgJfy ZT0n mESzXMmfUn8iqWxlxX udCN6xXUFiurnyn825 YeKsr8vuDGEfpRRaQG fkEMX6M52wx1S9XOOr MDAw PHI7mWU7pX8zmCeodr ogbGVmdDsgdmVydGlj ASdcXGspL978DIXjiQ xxFnKcfSh3I1FgHeu3 ZCBz tQnmPU1ftUMlHHwpCg 3ctEmboPtwTK0aGFEi enxjg792ClIhx9xxOZ ZtzHYrRSwzLNN2I16b b3I6 YHQpCYCxNPI9mTR2cZ 1hbGlnbjogbGVmdDsg dmVydGljYWwtYWxpZ2 46IHRvcDsnPlBhdGll bnQg TOqlTNd4T3IbOunloN I+UK12CQKnKY92eYKw qQZgx1tfjCb6IjBbKL MsGKL5nLxuQCvku1Ux ZXIt A26cbWPpk3T1JUVhlQ tofFKzFtNzkKO4bT1l WKxfwdkbq6zvxiwiPm doo6qxcq63rO66L85q IHdp ZHRoPSIzMCUiIHZhbG rujz2ngU1xEl4+PGNv wLB4eOA6qE3qTOMuLr M2EZcgQ727GrVzmVBa Pjxj s1vsb3dyxQt8JzI5XM YcdlTrgQqxJNJ6w5Am Fk24O10eBObrPHKxXV ExPRDbKNWfhXkbor6x dG9w Ii8+LULmlRR5uTP0hF 3yKhFrTeA7PNxpJ790 OnIlvIQgRsqhA90fH7 JvdXA+EHQsQgj3PCNm dHls OZ1gvLWwXLsyKg9rFA J9BeOtOyMmUYljO4Ym JIYdyxphdkfpxUR9NZ IoWNWedY15Gr0rfTmt MTBw oJEDnW2nmkorm6drlu qvTlStRJQvLGi9DUb9 HJGhlBjvWkTtKCT5Rb M3WZX1hKNpcF7cfSts bjog iD2dN3PvHJMkbzcsLj 74sZ9eXtEuUxD1FWbr Oyc+JM2VTFGAAVPFZF xISTMAPEQOVAR9E5Fa Pjx0 JGKeiHzzNM2chAVrKM amYb4scDtffTdiCD1d KZKuauwjNRZehZ4yVJ HtpRSanLhgVM4hSIWh bjtm s755QnAuQRF1DSCffH RyU5YjqJ7eLsByFWIt ABWiF8ZzjCTpIXueR3 68XVrkJyH2NQJqeoFk Y2Fs PNDfdYceLoT5t3B5Uz 2zCo9iRO3yFQrbTB80 HI93dWDfj8Y5zBG2T6 BhZGRpbmctcmlnaHQ6 IDAu VUEyyN35xRTaTKuaXc 5mk0D4c291PXYeZOUs vA91Zk1kvHcgSRUlgA FKvX6cuzttp9dlkqpz IzAw SQYzSWz3MFx1NKUkzT jqAmNuPBS3XgF8DBM9 eIUvpJ9cqBeemtckcM 9wOyc+MzAgWWVhcnM8 L3Rk Muw5YHXfnHvrIC1ygX BvASqnFj1ueYwimIyy JD8nCZOnlzcbYZWrjV 9rHNMnyWVajGrmPK7w NTBp pnbja063HrLoULS1PO LstWBpI2AtgZ4uLaKi THAwZNXvK9DqqGNaOB ynR337CGsuHfT6BBEh cnRp S5PgAPItkEniWtM7j9 Z7Ah1HRJ8AXOO5T0Vy Ris6CUCnkOldAO0dgB FcVNyyLw3qzBystRbj MC4w TLQyfubwDKRctY3bFG TbqDVxmKqqGJ3tKXBd mminc146VcBeYKD9IR XxvVZhB3ChxS9aUsKk MDAw YEBgR6QgjTMjUViqM2 93XPtqAfR5DMGeusTr S5QeQSPnyXmwLeZ6r6 H2Ep5RjdWvuFpbfyP8 L3Rk PjwvdHI+KL86FDBgRD 24qWBbnUKjw4tnfZs1 GhImAMNlZGZ8lMqwAK phn5FmVKJzX61fjLPr c2U6 IGNvbGxhcHNlOyBlbX Z2vJ2cQViqqgxld9hi kdjxXwafi7sogd28fY 76H60gDBvhKTCjMNGx MCUi ONSzrMwdjp7fmN8kIi 8+PMSlwDD2vTK4jI5y LlYsTlA8ZGgkY725Ib JauXKjLiyys3eoe7nk dGg9 IjIwJSIgdmFsaWduPS Y8u2VqGl73Z72qUMzy ZHRoPSIyMCUiIHZhbG vnvd6llM5iHs1+PC9j b2xn hm23tM07zZH+PHRkIH T4jClrAThiBQKwvI6g KKwfQhS1ZDWtSzOarF 89mXYnRDipAn4vtDun dDog NV8pTUYlrcwqa305Hn Dot4tnQCGtgFJjPDpt QAX7W50vf2M7DWXyOP WtYPQ6rHX8yT9toMqx bjog bGVmdDsgdmVydGljYW kaTTvkY941GXXpkZav NrSjhKZrZ3zxdfDINV 1lOjwvdGQ+PHRkIHN0 eWxl EEewIUYkcW3gOUFlV2 j0MuHlRhA5WEmsG2Qc tpK3EHDgmCRcQNCwpI QApJ7svgjjs0lvwgtt IzAw RSZuTGl9QNf8IJDteM wpUbRqCTJ2MdC9DJV6 dVTfqY8dlWpuqqbzsK 9wOyc+RklOOjwvdGQ+ PHRk BQX3jCcbGKefALZvxP 1dMXAlX9l2SzIeFlZ4 AMzcG0KhtwW9RIDpoZ QzEEOwnNKLxX8mjvsv b2xv rgumQmLoXHIvUAh8BG n9HUKfsTswGqZlPPZ0 QzF4TTB3iAUwrV2uiF gipylnlP1rSrb+TVJO Ojwv dGQ+MYEtTUJ4fLkcXQ xaFAMoxP9hRLUgE1m1 DbOaFeQ1FCgfP3Wpgd G2ICBflWJhOIYouXFP aW1l vxxep6vkpfrlNtEzQL ZgPDv5GJu8ANLgoJzv WtRoPIU7UiM3VGY2jL JviM7uaWizeqgsaW6x Oyc+ IBX5AUF5VH35MH53Q3 RyPjwvdGFibGU+PHRh YmxlIHdpZHRoPScxMD DvCgBohLqfRZ1pUt3x ZGVy LWN (more content not included)... [facility] Provider [place] 07-23-2023 Provider Orders [id number] [email or web address] Provider Orders [id number] [email or web address] BASIC METABOLIC PANLon 07-04 Anion gap [Moles/Vol] 7 mmol/L Normal 5-15 [facility] Comment on above: Performed By: #### 6 873-4, 25907-9, 18282-6, CMP, 60355-4, HA1C, CBCA #### [facility] ([id number]) [address] [place] [address] Calcium [Mass/Vol] 7.8 mg/dL Low 8.5-10.5 [facility] Comment on above: Performed By: #### 6 873-4, 26659-8, 62666-3, CMP, 71040-9, HA1C, CBCA #### [facility] ([id number]) [address], [address] [place] [address] Chloride [Moles/Vol] 98 mmol/L Normal 98-109 [facility] Comment on above: Performed By: #### 6 873-4, 63854-8, 18935-7, CMP, 55970-9, HA1C, CBCA #### [facility] ([id number]) [address], [address] [place] [address] CO2 [Moles/Vol] 27 mmol/L Normal 22-32 [facility] Comment on above: Performed By: #### 6 873-4, 51765-9, 34471-6, CMP, 24734-8, HA1C, CBCA #### [facility] ([id number]) [address], [address] [place] [address] Creatinine [Mass/Vol] 0.50 mg/dL Normal 0.40-1.00 [facility] Comment on above: Result Comment: METH OD TRACEABLE TO IDMS STANDARD Performed By: #### 6 873-4, 70810-7, 46972-0, CMP, 00828-0, HA1C, CBCA #### [facility] ([id number]) [address], [address] [place] [address] eGFR (CKD-EPI) NON-RACE DEPENDENT >90 Normal >59 [facility] Comment on above: Result Comment: Reported eGFR is based on the CKD-EPI 2020 equation that does not use a race coefficient. Performed By: #### 6 873-4, 34069-7, 31421-7, CMP, 22261-4, HA1C, CBCA #### [facility] ([id number]) [address], [address] [place] [address] Glucose [Mass/Vol] 290 mg/dL High 65-99 [facility] Comment on above: Performed By: #### 6 873-4, 20117-8, 76560-9, CMP, 11972-7, HA1C, CBCA #### [facility] ([id number]) [address], [address] [place] [address] Potassium [Moles/Vol] 3.7 mmol/L Normal 3.5-5.0 [facility] Comment on above: Performed By: #### 6 873-4, 35884-3, 98651-3, CMP, 30604-5, HA1C, CBCA #### [facility] ([id number]) [address], [address] [place] [address] Sodium [Moles/Vol] 132 mmol/L Low 134-146 [facility] Comment on above: Performed By: #### 6 873-4, 44126-0, 48749-4, CMP, 33560-5, HA1C, CBCA #### [facility] ([id number]) [address], [address] [place] [address] Urea nitrogen [Mass/Vol] 2 mg/dL Low 5-23 [facility] Comment on above: Performed By: #### 6 873-4, 81549-9, 64666-5, CMP, 16733-3, HA1C, CBCA #### [facility] ([id number]) [address], [address] [place] [address] Beta hydroxybutyrate [Moles/ Vol]on 07-04-2023 BetaHydroxybutyrate 0.38 mmol/L High 0.02-0.27 [facility] Comment on above: Performed By: #### 6 873-4, 46293-6, 17458-4, CMP, 94691-8, HA1C, CBCA #### [facility] ([id number]) [address], [address] [place] [address] BetaHydroxybutyrate <0.10 Normal 0.02-0.27 [facility] Comment on above: Performed By: #### 6 873-4, 40001-7, 90705-5, CMP, 70314-8, HA1C, CBCA #### [facility] ([id number]) [address], [address] [place] [address] BetaHydroxybutyrateon 2023 Beta hydroxybutyrate [Moles/Vol] mmol/L 0.02 - 0.27 mmol/L [facility] CBC AND AUTO DIFFon 07-04-19 ABSOLUTE BASOPHIL 0.0 X10E9/L Normal 0.0-0.2 [facility] Comment on above: Performed By: #### 6 873-4, 55572-3, 23604-1, CMP, 22122-3, HA1C, CBCA #### [facility] ([id number]) [address], [address] [place] [address] ABSOLUTE NEUTROPHIL 5.2 X10E9/L Normal 1.5-6.6 [facility] Comment on above: Performed By: #### 6 873-4, 63116-0, 41319-4, CMP, 97670-1, HA1C, CBCA #### [facility] ([id number]) [address], [address] [place] [address] Basophils/100 WBC (Bld) 0.7 % Normal [facility] Comment on above: Performed By: #### 6 873-4, 48394-2, 30793-0, CMP, 90324-0, HA1C, CBCA #### [facility] ([id number]) [address], [address] [place] [address] Eosinophils (Bld) [#/Vol] 0.0 10*3/uL Normal 0.0-0.4 [facility] Comment on above: Performed By: #### 6 873-4, 13918-1, 46736-3, CMP, 15407-4, HA1C, CBCA #### [facility] ([id number]) [address], [address] [place] [address] Eosinophils/100 WBC (Bld) 0.6 % Normal [facility] Comment on above: Performed By: #### 6 873-4, 50598-0, 10491-6, CMP, 53944-4, HA1C, CBCA #### [facility] ([id number]) [address] [facility] [facility] [address] [place] [address] Erythrocyte distribution width (RBC) [Ratio] 15.3 % High 11.5-15.0 [facility] Comment on above: Performed By: #### 6 873-4, 22742-8, 70691-6, CMP, 63801-2, HA1C, CBCA #### [facility] ([id number]) [address] [address] Hematocrit (Bld) [Volume fraction] 36.1 % Normal 35-47 [facility] Comment on above: Performed By: #### 6 873-4, 86839-6, 66077-4, CMP, 22597-1, HA1C, CBCA #### [facility] ([id number]) [address] [facility] [facility] [facility] [address] [place] [address] Hemoglobin (Bld) [Mass/Vol] 11.9 g/dL Normal 11.7-15. 5 [facility] Comment on above: Performed By: #### 6 873-4, 42203-8, 18906-7, CMP, 36662-7, HA1C, CBCA #### [facility] ([id number]) [address] [address] Lymphocytes (Bld) [#/Vol] 1.5 10*3/uL Normal 1.0-3.5 [facility] Comment on above: Performed By: #### 6 873-4, 64393-1, 50023-3, CMP, 99189-0, HA1C, CBCA #### [facility] ([id number]) [address] [facility] [facility] [facility] [address] [place] [address] Lymphocytes/100 WBC (Bld) 21.1 % Normal [facility] Comment on above: Performed By: #### 6 873-4, 04317-3, 84517-0, CMP, 76379-6, HA1C, CBCA #### [facility] ([id number]) [address], [address] [place] [address] MCH (RBC) [Entitic mass] 25.2 pg Low 27-34 [facility] Comment on above: Performed By: #### 6 873-4, 59156-3, 01747-6, CMP, 86495-6, HA1C, CBCA #### [facility] ([id number]) [address], [address] [place] [address] MCHC (RBC) [Mass/Vol] 33.0 g/dL Normal 32-36 [facility] Comment on above: Performed By: #### 6 873-4, 16634-7, 61881-5, CMP, 39571-1, HA1C, CBCA #### [facility] ([id number]) [address], [address] [place] [address] MCV (RBC) [Entitic vol] 76 fL Low 80-100 [facility] Comment on above: Performed By: #### 6 873-4, 79859-9, 64755-5, CMP, 41623-6, HA1C, CBCA #### [facility] ([id number]) [address], [address] [place] [address] Monocytes (Bld) [#/Vol] 0.5 10*3/uL Normal 0-0.9 [facility] Comment on above: Performed By: #### 6 873-4, 24190-8, 36290-2, CMP, 85572-3, HA1C, CBCA #### [facility] ([id number]) [address], [address] [place] [address] Monocytes/100 WBC (Bld) 6.7 % Normal [facility] Comment on above: Performed By: #### 6 873-4, 40851-7, 96284-9, CMP, 64304-4, HA1C, CBCA #### [facility] ([id number]) [address], [address] [place] [address] Neutrophils/100 WBC (Bld) 70.9 % Normal [facility] Comment on above: Performed By: #### 6 873-4, 11390-7, 05086-6, CMP, 90088-8, HA1C, CBCA #### [facility] ([id number]) [address], [address] [place] [address] Platelet mean volume (Bld) [Entitic vol] 7.8 fL Normal 7-12 [facility] Comment on above: Performed By: #### 6 873-4, 28715-7, 24871-8, CMP, 68920-7, HA1C, CBCA #### [facility] ([id number]) [address], [address] [place] [address] Platelets (Bld) [#/Vol] 221 10*3/uL Normal 150-450 [facility] Comment on above: Performed By: #### 6 873-4, 87250-2, 40349-8, CMP, 73141-9, HA1C, CBCA #### [facility] ([id number]) [address], [address] [place] [address] RBC COUNT 4.72 X10E12/L Normal 3.80-5.20 [facility] Comment on above: Performed By: #### 6 873-4, 56371-1, 72843-4, CMP, 70168-1, HA1C, CBCA #### [facility] ([id number]) [address], [address] [place] [address] WBC (Bld) [#/Vol] 7.3 10*3/uL Normal 4.0-11.0 [facility] Comment on above: Performed By: #### 6 873-4, 83746-6, 50630-4, CMP, 59408-1, HA1C, CBCA #### [facility] ([id number]) [address], [address] [place] [address] ABSOLUTE BASOPHIL 0.0 X10E9/L Normal 0.0-0.2 [facility] Comment on above: Performed By: #### 6 873-4, 82355-2, 85338-0, CMP, 89478-2, HA1C, CBCA #### [facility] ([id number]) [address], [address] [place] [address] ABSOLUTE NEUTROPHIL 5.2 X10E9/L Normal 1.5-6.6 [facility] Comment on above: Performed By: #### 6 873-4, 51604-5, 37131-2, CMP, 57503-3, HA1C, CBCA #### [facility] ([id number]) [address], [address] [place] [address] Basophils/100 WBC (Bld) 0.3 % Normal [facility] Comment on above: Performed By: #### 6 873-4, 13853-1, 27761-3, CMP, 41397-2, HA1C, CBCA #### [facility] ([id number]) [address], [address] [place] [address] Eosinophils (Bld) [#/Vol] 0.0 10*3/uL Normal 0.0-0.4 [facility] Comment on above: Performed By: #### 6 873-4, 85677-4, 61114-9, CMP, 57282-5, HA1C, CBCA #### [facility] ([id number]) [address], [address] [place] [address] Eosinophils/100 WBC (Bld) 0.2 % Normal [facility] Comment on above: Performed By: #### 6 873-4, 88650-8, 33476-5, CMP, 32160-1, HA1C, CBCA #### [facility] ([id number]) [address] [facility] [address] [place] [address] Erythrocyte distribution width (RBC) [Ratio] 15.4 % High 11.5-15.0 [facility] Comment on above: Performed By: #### 6 873-4, 46308-6, 14707-1, CMP, 18375-4, HA1C, CBCA #### [facility] ([id number]) [address] [facility] [address] [place] [address] Hematocrit (Bld) [Volume fraction] 30.9 % Low 35-47 [facility] Comment on above: Performed By: #### 6 873-4, 64733-8, 78315-6, CMP, 10460-8, HA1C, CBCA #### [facility] ([id number]) [address], [facility] [address] [place] [address] Hemoglobin (Bld) [Mass/Vol] 10.4 g/dL Low 11.7-15. 5 [facility] Comment on above: Performed By: #### 6 873-4, 34647-9, 81126-4, CMP, 28666-7, HA1C, CBCA #### [facility] ([id number]) [address] [address] Lymphocytes (Bld) [#/Vol] 1.7 10*3/uL Normal 1.0-3.5 [facility] Comment on above: Performed By: #### 6 873-4, 49662-7, 00880-4, CMP, 98793-9, HA1C, CBCA #### [facility] ([id number]) [address] [address] Lymphocytes/100 WBC (Bld) 22.6 % Normal [facility] Comment on above: Performed By: #### 6 873-4, 86210-2, 93373-1, CMP, 68936-0, HA1C, CBCA #### [facility] ([id number]) [address], [address] [place] [address] MCH (RBC) [Entitic mass] 25.8 pg Low 27-34 [facility] Comment on above: Performed By: #### 6 873-4, 83781-7, 62030-1, CMP, 20937-3, HA1C, CBCA #### [facility] ([id number]) [address], [address] [place] [address] MCHC (RBC) [Mass/Vol] 33.7 g/dL Normal 32-36 [facility] Comment on above: Performed By: #### 6 873-4, 30821-3, 71500-7, CMP, 11048-0, HA1C, CBCA #### [facility] ([id number]) [address], [address] [place] [address] MCV (RBC) [Entitic vol] 77 fL Low 80-100 [facility] Comment on above: Performed By: #### 6 873-4, 02437-0, 32569-5, CMP, 53418-2, HA1C, CBCA #### [facility] ([id number]) [address], [address] [place] [address] Monocytes (Bld) [#/Vol] 0.6 10*3/uL Normal 0-0.9 [facility] Comment on above: Performed By: #### 6 873-4, 17447-1, 41453-2, CMP, 81079-3, HA1C, CBCA #### [facility] ([id number]) [address] [address] [place] [address] Monocytes/100 WBC (Bld) 7.9 % Normal [facility] Comment on above: Performed By: #### 6 873-4, 78250-6, 29245-3, CMP, 04521-5, HA1C, CBCA #### [facility] ([id number]) [address], [address] [place] [address] Neutrophils/100 WBC (Bld) 69.0 % Normal [facility] Comment on above: Performed By: #### 6 873-4, 61979-8, 36990-5, CMP, 07699-0, HA1C, CBCA #### [facility] ([id number]) [address], [address] [place] [address] Platelet mean volume (Bld) [Entitic vol] 7.6 fL Normal 7-12 [facility] Comment on above: Performed By: #### 6 873-4, 40133-5, 16874-5, CMP, 30227-3, HA1C, CBCA #### [facility] ([id number]) [address], [address] [place] [address] Platelets (Bld) [#/Vol] 221 10*3/uL Normal 150-450 [facility] Comment on above: Performed By: #### 6 873-4, 54835-3, 70782-6, CMP, 76614-3, HA1C, CBCA #### [facility] ([id number]) [address], [address] [place] [address] RBC COUNT 4.03 X10E12/L Normal 3.80-5.20 [facility] Comment on above: Performed By: #### 6 873-4, 19223-1, 19694-3, CMP, 53508-3, HA1C, CBCA #### [facility] ([id number]) [address], [address] [place] [address] WBC (Bld) [#/Vol] 7.6 10*3/uL Normal 4.0-11.0 [facility] Comment on above: Performed By: #### 6 873-4, 12768-4, 45613-1, CMP, 15105-4, HA1C, CBCA #### [facility] ([id number]) [address] [facility] [facility] [place] [address] CBC auto differentialon Basophils (Bld) [#/Vol] 0.0 10*3/uL [facility] Basophils/100 WBC (Bld) 0.3 % [facility] Eosinophils (Bld) [#/Vol] 0.0 10*3/uL [...] Interpretation and review of laboratory results Abnormal [facility] Lymphocytes (Bld) [#/Vol] 1.7 10*3/uL [facility] Lymphocytes/100 WBC (Bld) 22.6 % [facility] MCH (RBC) [Entitic mass] 25.8 pg Low 27 - 34 pg [facility] MCHC (RBC) [Mass/Vol] 33.7 g/dL 32 - 36 g/dL [facility] MCV (RBC) [Entitic vol] 77 fL Low 80 - 100 fL [facility] Monocytes (Bld) [#/Vol] 0.6 10*3/uL [facility] Monocytes/100 WBC (Bld) 7.9 % [facility] Neutrophils (Bld) [#/Vol] 5.2 10*3/uL [facility] Neutrophils/100 WBC (Bld) 69.0 % [facility] Platelet mean volume (Bld) [Entitic vol] 7.6 fL 7 - 12 fL [facility] Platelets (Bld) [#/Vol] 221 10*3/uL [facility] RBC (Bld) [#/Vol] 4.03 10*6/uL [facility] WBC corrected for nucl RBC Auto (Bld) [#/Vol] 7.6 [facility] COMPREHENSIVE METABOLIC PANE Galileo 07-04-2023 Albumin [Mass/Vol] 3.0 g/dL Low 3.2-5.3 [facility] Comment on above: Performed By: #### 6 873-4, 31407-6, 94094-6, CMP, 96913-3, HA1C, CBCA #### [facility] ([id number]) [address], [address] [place] [address] ALP [Catalytic activity/Vol] 68 U/L Normal 39-130 [facility] Comment on above: Performed By: #### 6 873-4, 79555-8, 95037-7, CMP, 38328-9, HA1C, CBCA #### [facility] ([id number]) [address], [address] [place] [address] ALT [Catalytic activity/Vol] 14 U/L Normal 0-31 [facility] Comment on above: Performed By: #### 6 873-4, 17077-2, 13930-8, CMP, 03685-1, HA1C, CBCA #### [facility] ([id number]) [address], [address] [place] [address] Anion gap [Moles/Vol] 5 mmol/L Normal 5-15 [facility] Comment on above: Performed By: #### 6 873-4, 25994-0, 19181-4, CMP, 22942-0, HA1C, CBCA #### [facility] ([id number]) [address], [address] [place] [address] AST [Catalytic activity/Vol] 17 U/L Normal 0-41 [facility] Comment on above: Performed By: #### 6 873-4, 90037-9, 07703-2, CMP, 62374-7, HA1C, CBCA #### [facility] ([id number]) [address], [address] [place] [address] Bilirubin [Mass/Vol] 0.3 mg/dL Normal 0.3-1.2 [facility] Comment on above: Performed By: #### 6 873-4, 44974-7, 29379-8, CMP, 12304-6, HA1C, CBCA #### [facility] ([id number]) [address], [address] [place] [address] Calcium [Mass/Vol] 7.4 mg/dL Low 8.5-10.5 [facility] Comment on above: Performed By: #### 6 873-4, 09920-7, 46649-5, CMP, 84275-1, HA1C, CBCA #### [facility] ([id number]) [address], [address] [place] [address] Chloride [Moles/Vol] 113 mmol/L High 98-109 [facility] Comment on above: Performed By: #### 6 873-4, 89974-4, 88936-1, CMP, 53565-6, HA1C, CBCA #### [facility] ([id number]) [address], [address] [place] [address] CO2 [Moles/Vol] 23 mmol/L Normal 22-32 [facility] Comment on above: Performed By: #### 6 873-4, 25354-8, 77718-9, CMP, 06096-7, HA1C, CBCA #### [facility] ([id number]) [address], [address] [place] [address] Creatinine [Mass/Vol] 0.36 mg/dL Low 0.40-1.00 [facility] Comment on above: Result Comment: METH OD TRACEABLE TO IDMS STANDARD Performed By: #### 6 873-4, 93107-1, 55249-3, CMP, 42876-6, HA1C, CBCA #### [facility] ([id number]) [address], [address] [place] [address] eGFR (CKD-EPI) NON-RACE DEPENDENT >90 Normal >59 [facility] Comment on above: Result Comment: Reported eGFR is based on the CKD-EPI 2020 equation that does not use a race coefficient. Performed By: #### 6 873-4, 11659-4, 69217-7, CMP, 15860-0, HA1C, CBCA #### [facility] ([id number]) [address], [address] [place] [address] Glucose [Mass/Vol] 89 mg/dL Normal 65-99 [facility] Comment on above: Performed By: #### 6 873-4, 18983-2, 41442-1, CMP, 07513-6, HA1C, CBCA #### [facility] ([id number]) [address], [address] [place] [address] Potassium [Moles/Vol] 3.4 mmol/L Low 3.5-5.0 [facility] Comment on above: Performed By: #### 6 873-4, 89445-8, 82615-7, CMP, 35495-2, HA1C, CBCA #### [facility] ([id number]) [address], [address] [place] [address] Protein [Mass/Vol] 5.0 g/dL Low 6.0-8.0 [facility] Comment on above: Performed By: #### 6 873-4, 16127-2, 24760-8, CMP, 35426-1, HA1C, CBCA #### [facility] ([id number]) [address] [address] [place] [address] Sodium [Moles/Vol] 141 mmol/L Normal 134-146 [facility] Comment on above: Performed By: #### 6 873-4, 78689-3, 82637-7, CMP, 89276-1, HA1C, CBCA #### [facility] ([id number]) [address] [facility] [facility] [place] [address] Urea nitrogen [Mass/Vol] 2 mg/dL Low 5-23 [facility] Comment on above: Performed By: #### 6 873-4, 05316-4, 67851-7, CMP, 80920-3, HA1C, CBCA #### [facility] ([id number]) [address] [facility], [address] [place] [address] Calcium.ionized (Bld) [Mass/ Vol]on 07-04-2023 IONIZED CALCIUM 4.5 mg/dL Normal 4.5-5.3 [facility] Comment on above: Performed By: #### 6 873-4, 97553-5, 32819-4, CMP, 17000-5, HA1C, CBCA #### [facility] ([id number]) [address] [facility], [address] [place] [address] [facility] Comprehensive metabolic pane galileo 07-04-2023 Albumin [Mass/Vol] 3.0 g/dL Low 3.2 - 5.3 g/dL Pr [facility] ALP [Catalytic activity/Vol] 68 U/L 39 - 130 U/L [facility] ALT No additional P-5'-P [Catalytic activity/Vol] 14 U/L 0 - 31 U/L [facility] Anion gap [Moles/Vol] 5 mmol/L 5 - 15 mmol/L [facility] AST [Catalytic activity/Vol] 17 U/L 0 - 41 U/L [facility] Bilirubin [Mass/Vol] 0.3 mg/dL 0.3 - 1 .2 mg/dL [facility] Calcium [Mass/Vol] 7.4 mg/dL Low 8.5 - 10. 5 mg/dL [facility] Chloride [Moles/Vol] 113 mmol/L High 98 - 10 9 mmol/L [facility] CO2 [Moles/Vol] 23 mmol/L 22 - 32 mmol/L [facility] Creatinine [Mass/Vol] 0.36 mg/dL Low 0.40 - 1.00 mg/dL [facility] Comment on above: METHOD TRACEABLE TO IDMI STANDARD eGFR (CKD-EPI)non-race dependent - PINF [facility] Comment on above: Reported eGFR is based on the CKD-EPI 2020 equation that does not use a race coefficient. Glucose [Mass/Vol] 89 mg/dL 65 - 99 mg/dL [facility] Potassium [Moles/Vol] 3.4 mmol/L Low 3.5 - 5.0 mmol/L [facility] Protein [Mass/Vol] 5.0 g/dL Low 6.0 - 8.0 g/dL Pr [facility] Sodium [Moles/Vol] 141 mmol/L 134 - 146 mmol/L [facility] Urea nitrogen [Mass/Vol] 2 mg/dL Low 5 - 23 mg/d L [facility] ELECTROLYTESon 07-04-2023 Anion gap [Moles/Vol] 4 mmol/L Low 5-15 [facility] Comment on above: Performed By: #### 6 873-4, 99688-0, 14098-1, CMP, 41319-8, HA1C, CBCA #### [facility] ([id number]) [address], [address] [place] [address] Chloride [Moles/Vol] 108 mmol/L Normal 98-[address] [facility] Comment on above: Performed By: #### 6 873-4, 07059-9, 24567-0, CMP, 55757-1, HA1C, CBCA #### [facility] ([id number]) [address], [address] [place] [address] CO2 [Moles/Vol] 26 mmol/L Normal 22-32 [facility] Comment on above: Performed By: #### 6 873-4, 74979-4, 23007-2, CMP, 24701-9, HA1C, CBCA #### [facility] ([id number]) [address], [address] [place] [address] Potassium [Moles/Vol] 3.9 mmol/L Normal 3.5-5.0 [facility] Comment on above: Performed By: #### 6 873-4, 98340-8, 94345-4, CMP, 63691-6, HA1C, CBCA #### [facility] ([id number]) [address], [address] [place] [address] Sodium [Moles/Vol] 138 mmol/L Normal 134-146 [facility] Comment on above: Performed By: #### 6 873-4, 67167-9, 39131-1, CMP, 96860-0, HA1C, CBCA #### [facility] ([id number]) [address], [address] [place] [address] Anion gap [Moles/Vol] 7 mmol/L Normal 5-15 [facility] Comment on above: Performed By: #### 6 873-4, 97211-8, 38842-5, CMP, 88028-5, HA1C, CBCA #### [facility] ([id number]) [address], [address] [place] [address] Chloride [Moles/Vol] 109 mmol/L Normal 98-109 [facility] Comment on above: Performed By: #### 6 873-4, 97975-1, 94131-0, CMP, 99920-3, HA1C, CBCA #### [facility] ([id number]) [address], [address] [place] [address] CO2 [Moles/Vol] 21 mmol/L Low 22-32 [facility] Comment on above: Performed By: #### 6 873-4, 45923-1, 73179-6, CMP, 00237-6, HA1C, CBCA #### [facility] ([id number]) [address], [address] [place] [address] Potassium [Moles/Vol] 3.3 mmol/L Low 3.5-5.0 [facility] Comment on above: Performed By: #### 6 873-4, 00915-7, 60683-8, CMP, 54516-0, HA1C, CBCA #### [facility] ([id number]) [address], [address] [place] [address] Sodium [Moles/Vol] 137 mmol/L Normal 134-146 [facility] Comment on above: Performed By: #### 6 873-4, 09993-8, 45597-7, CMP, 34892-2, HA1C, CBCA #### [facility] ([id number]) [address], [address] [place] [address] ETHANOLon 07-04-2023 Ethanol [Mass/Vol] mg/dL Normal 0.00-0.08 [facility] Comment on above: Result Comment: This report is intended for use in clinical monitoring or management of patients. Performed By: #### 6 873-4, 62249-8, 08080-8, [facility], 71731-5, HA1C, CBCA #### [facility] ([id number]) [address], [address] [place] [address] Electrolyte panelon 07-04-19 Anion gap [Moles/Vol] 7 mmol/L 5 - 15 mmol/L [facility] Chloride [Moles/Vol] 109 mmol/L 98 - 10 9 mmol/L [facility] CO2 [Moles/Vol] 21 mmol/L Low 22 - 32 mmol/L [facility] Interpretation and review of laboratory results Abnormal [facility] Potassium [Moles/Vol] 3.3 mmol/L Low 3.5 - 5.0 mmol/L [facility] Sodium [Moles/Vol] 137 mmol/L 134 - 146 mmol/L [facility] [facility] Gl[facility] Glucometer (BldC) [M ass/Vol]on 07-04-2023 Glucose [Mass/Vol] 203 mg/dL High 65-99 [facility] Glucose [Mass/Vol] 173 mg/dL High 65-99 [facility] Glucose [Mass/Vol] 140 mg/dL High 65 - 99 mg/dL [facility] Glucose [Mass/Vol] 173 mg/dL High 65 - 99 mg/dL [facility] Interpretation and review of laboratory results Abnormal [facility] Glucose [Mass/Vol] 140 mg/dL High 65-99 [facility] Glucose [Mass/Vol] 156 mg/dL High 65-99 [facility] Glucose [Mass/Vol] 156 mg/dL High 65 - 99 mg/dL [facility] Interpretation and review of laboratory results Abnormal [facility] Glucose [Mass/Vol] 139 mg/dL High 65 - 99 mg/dL [facility] Interpretation and review of laboratory results Abnormal [facility] Glucose [Mass/Vol] 139 mg/dL High 65-[address] [facility] Glucose [Mass/Vol] 134 mg/dL High 65-99 [facility] Glucose [Mass/Vol] 147 mg/dL High 65-99 [facility] Glucose [Mass/Vol] 134 mg/dL High 65 - 99 mg/dL [facility] Interpretation and review of laboratory results Abnormal [facility] Glucose [Mass/Vol] 86 mg/dL Normal 65-99 [facility] Glucose [Mass/Vol] 147 mg/dL High 65 - 99 mg/dL [facility] Interpretation and review of laboratory results Abnormal [facility] Glucose [Mass/Vol] 106 mg/dL High 65-99 [facility] Glucose [Mass/Vol] 86 mg/dL 65 - 99 mg/dL [facility] Glucose [Mass/Vol] 163 mg/dL High 65-99 [facility] Glucose [Mass/Vol] 235 mg/dL High 65-99 [facility] Glucose [Mass/Vol] 106 mg/dL High 65 - 99 mg/dL [facility] Interpretation and review of laboratory results Abnormal [facility] Glucose [Mass/Vol] 163 mg/dL High 65 - 99 mg/dL [facility] Interpretation and review of laboratory results Abnormal [facility] Glucose [Mass/Vol] 238 mg/dL High 65-99 [facility] Glucose [Mass/Vol] 235 mg/dL High 65 - 99 mg/dL [facility] Interpretation and review of laboratory results Abnormal [facility] Glucose [Mass/Vol] 265 mg/dL High 65-99 [facility] Ionized calciumon 07-04-2023 Calcium.ionized (Bld) [Mass/Vol] 4.5 mg/dL 4.5 - 5.3 mg/dL [facility] Ionized magnesiumon 07-04-19 Magnesium Ionized ISE (Bld) [Moles/Vol] 0.72 mmol/L 0.45 - 0.74 mmol/L [facility] Comment on above: NEW REFERENCE RANGE LIVER PANELon 07-04-2023 Albumin [Mass/Vol] 3.6 g/dL Normal 3.2-5.3 [facility] Comment on above: Performed By: #### 6 873-4, 46974-9, 29831-2, CMP, 01659-8, HA1C, CBCA #### [facility] ([id number]) [address], [address] [place] [address] ALP [Catalytic activity/Vol] 82 U/L Normal 39-130 [facility] Comment on above: Performed By: #### 6 873-4, 68987-9, 02276-5, CMP, 75660-7, HA1C, CBCA #### [facility] ([id number]) [address], [address] [place] [address] ALT [Catalytic activity/Vol] 18 U/L Normal 0-31 [facility] Comment on above: Performed By: #### 6 873-4, 50908-0, 27510-2, CMP, 27869-5, HA1C, CBCA #### [facility] ([id number]) [address], [address] [place] [address] AST [Catalytic activity/Vol] 18 U/L Normal 0-41 [facility] Comment on above: Performed By: #### 6 873-4, 05720-9, 63416-6, CMP, 26360-5, HA1C, CBCA #### [facility] ([id number]) [address], [address] [place] [address] Bilirubin [Mass/Vol] 0.5 mg/dL Normal 0.3-1.2 [facility] Comment on above: Performed By: #### 6 873-4, 88779-6, 51795-1, CMP, 17107-0, HA1C, CBCA #### [facility] ([id number]) [address], [address] [place] [address] Bilirubin.direct [Mass/Vol] 0.0 mg/dL Normal 0.0-0.4 [facility] Comment on above: Performed By: #### 6 873-4, 78974-9, 31605-3, CMP, 57286-2, HA1C, CBCA #### [facility] ([id number]) [address], [address] [place] [address] Protein [Mass/Vol] 6.4 g/dL Normal 6.0-8.0 [facility] Comment on above: Performed By: #### 6 873-4, 76376-2, 03460-8, CMP, 90580-6, HA1C, CBCA #### [facility] ([id number]) [address], [address] [place] [address] MAGNESIUMon 07-04-2023 Magnesium [Mass/Vol] 1.5 mg/dL Low 1.8-2.6 [facility] Comment on above: Performed By: #### 6 873-4, 01616-7, 26920-3, CMP, 32890-7, HA1C, CBCA #### [facility] ([id number]) [address], [address] [place] [address] Magnesiumon 07-04-2023 Magnesium [Mass/Vol] 1.5 mg/dL Low 1.8 - 2 .6 mg/dL [facility] Magnesium Ionized ISE (Bld) [Moles/Vol]on 07-04-2023 Magnesium [Moles/Vol] 0.72 mmol/L Normal 0.45-0.74 [facility] Comment on above: Result Comment: NEW REFERENCE RANGE Performed By: #### 6 873-4, 18012-7, 27111-4, CMP, 02961-3, HA1C, CBCA #### [facility] ([id number]) [address], [address] [place] [address] [facility] No Panel Informationon 07-04 Interpretation and review of laboratory results Abnormal [facility] Interpretation and review of laboratory results Abnormal [facility] PHOSPHORUSon 07-04-2023 Phosphate [Mass/Vol] 1.5 mg/dL Low 2.4-4.9 [facility] Comment on above: Performed By: #### 6 873-4, 21817-6, 45697-1, CMP, 59595-2, HA1C, CBCA #### [facility] ([id number]) [address], [address] [place] [address] Phosphate [Mass/Vol] 2.0 mg/dL Low 2.4-4.[address] [facility] Comment on above: Performed By: #### 6 873-4, 86892-7, 16936-7, CMP, 80437-6, HA1C, CBCA #### [facility] ([id number]) [address], [address] [place] [address] Phosphate [Mass/Vol] mg/dL Critically low 2.4-4.9 [facility] Comment on above: Performed By: #### 6 873-4, 02868-4, 94517-0, CMP, 25328-5, HA1C, CBCA #### [facility] ([id number]) [address], [address] [place] [address] Phosphate [Mass/Vol] 1.1 mg/dL Low 2.4-4.9 [facility] Comment on above: Performed By: #### 6 873-4, 61349-9, 43032-4, CMP, 24147-8, HA1C, CBCA #### [facility] ([id number]) [address], [address] [place] [address] Phosphate [Mass/Vol]on 07-04 Interpretation and review of laboratory results Abnormal [facility] Interpretation and review of laboratory results Abnormal [facility] Phosphoruson 07-04-2023 Phosphate [Mass/Vol] mg/dL Critically low 2.4 - 4.9 mg/dL [facility] Phosphate [Mass/Vol] 1.1 mg/dL Low 2.4 - 4 .9 mg/dL [facility] VENOUS BLOOD GASon CAMI'S TEST Normal [facility] Comment on above: Performed By: #### 6 873-4, 70797-1, 51857-0, CMP, 10771-6, HA1C, CBCA #### [facility] ([id number]) [address], [address] [place] [address] Base excess Calc (Bld) [Moles/Vol] 2.0 mmol/L Normal 0.0-2.0 [facility] Comment on above: Performed By: #### 6 873-4, 58817-3, 95547-6, CMP, 07580-7, HA1C, CBCA #### [facility] ([id number]) [address], [address] [place] [address] Body temperature 98.6 [degF] Normal 37.0 [facility] Comment on above: Performed By: #### 6 873-4, 10482-4, 09776-5, CMP, 42837-0, HA1C, CBCA #### [facility] ([id number]) [address], [address] [place] [address] HCO3 (Bld) [Moles/Vol] 26.7 mmol/L High 20.0-24.0 [facility] Comment on above: Performed By: #### 6 873-4, 32968-8, 68171-4, CMP, 00775-2, HA1C, CBCA #### [facility] ([id number]) [address], [address] [place] [address] Oxygen saturation in Blood 43.0 % Low >80.0 [facility] Comment on above: Performed By: #### 6 873-4, 26896-5, 02077-1, CMP, 57175-9, HA1C, CBCA #### [facility] ([id number]) [address], [address] [place] [address] OXYGEN SOURCE RoomAir Normal [facility] Comment on above: Performed By: #### 6 873-4, 18446-1, 63785-1, CMP, 40950-8, HA1C, CBCA #### [facility] ([id number]) [address], [address] [place] [address] PCO2, VENOUS 43.5 MMHG Normal 35-50 [facility] Comment on above: Performed By: #### 6 873-4, 28463-1, 93305-0, CMP, 41435-6, HA1C, CBCA #### [facility] ([id number]) [address], [address] [place] [address] PH, VENOUS 7.397 Normal 7.320-7.420 [facility] Comment on above: Performed By: #### 6 873-4, 15292-8, 63952-6, CMP, 05579-7, HA1C, CBCA #### [facility] ([id number]) [address], [address] [place] [address] PO2, VENOUS 24 MMHG Low 30-50 [facility] Comment on above: Performed By: #### 6 873-4, 58493-9, 87177-8, CMP, 35074-9, HA1C, CBCA #### [facility] ([id number]) [address], [address] [place] [address] SAMPLE SITE N/A Normal [facility] Comment on above: Performed By: #### 6 873-4, 80615-6, 66554-1, CMP, 98231-0, HA1C, CBCA #### [facility] ([id number]) [address], [address] [place] [address] SAMPLE TYPE VENOUS [facility] Comment on above: Performed By: #### 6 873-4, 03183-0, 38050-4, CMP, 80083-7, HA1C, CBCA #### [facility] ([id number]) [address], [address] [place] [address] Beta hydroxybutyrate [Moles/ Vol]on 07-03-2023 BetaHydroxybutyrate 1.23 mmol/L High 0.02-0.27 [facility] Comment on above: Performed By: #### 6 873-4, 87172-5, 96462-4, CMP, 63269-9, HA1C, CBCA #### [facility] ([id number]) [address], [address] [place] [address] BetaHydroxybutyrate 2.65 mmol/L High 0.02-0.27 [facility] Comment on above: Performed By: #### 6 873-4, 63516-5, 43669-7, CMP, 77933-0, HA1C, CBCA #### [facility] ([id number]) [address], [address] [place] [address] Interpretation and review of laboratory results Abnormal [facility] BetaHydroxybutyrate 2.84 mmol/L High 0.02-0.27 [facility] Comment on above: Performed By: #### 6 873-4, 87641-7, 55797-3, CMP, 80302-5, HA1C, CBCA #### [facility] ([id number]) [address], [address] [place] [address] BetaHydroxybutyrateon 2023 Beta hydroxybutyrate [Moles/Vol] 1.23 mmol/L High 0.02 - 0.27 mmol/L [facility] Beta hydroxybutyrate [Moles/Vol] 2.65 mmol/L High 0.02 - 0.27 mmol/L [facility] Beta hydroxybutyrate [Moles/Vol] 2.84 mmol/L High 0.02 - 0.27 mmol/L [facility] CBC AND AUTO DIFFon 07-03-19 ABSOLUTE BASOPHIL 0.1 X10E9/L Normal 0.0-0.2 [facility] Comment on above: Performed By: #### 6 873-4, 52385-0, , CMP, 06282-9, HA1C, CBCA #### [facility] ([id number]) [address], [address] [place] [address] ABSOLUTE NEUTROPHIL 11.0 X10E9/L High 1.5-6.6 [facility] Comment on above: Performed By: #### 6 873-4, 13353-3, 90587-0, CMP, 60548-3, HA1C, CBCA #### [facility] ([id number]) [address], [address] [place] [address] Basophils/100 WBC (Bld) 0.6 % Normal [facility] Comment on above: Performed By: #### 6 873-4, 64826-7, 46448-5, CMP, 29534-5, HA1C, CBCA #### [facility] ([id number]) [address], [address] [place] [address] Eosinophils (Bld) [#/Vol] 0.0 10*3/uL Normal 0.0-0.4 [facility] Comment on above: Performed By: #### 6 873-4, 63661-5, 29041-8, CMP, 91535-7, HA1C, CBCA #### [facility] ([id number]) [address], [facility] [address] [place] [address] Eosinophils/100 WBC (Bld) 0.0 % Normal [facility] Comment on above: Performed By: #### 6 873-4, 65364-9, 71227-9, CMP, 04004-7, HA1C, CBCA #### [facility] ([id number]) [address] [address] Erythrocyte distribution width (RBC) [Ratio] 14.8 % Normal 11.5-15.0 [facility] Comment on above: Performed By: #### 6 873-4, 36364-9, 71558-4, CMP, 02727-6, HA1C, CBCA #### [facility] ([id number]) [address] [facility] [address] [place] [address] Hematocrit (Bld) [Volume fraction] 33.7 % Low 35-47 [facility] Comment on above: Performed By: #### 6 873-4, 13593-9, 19959-8, CMP, 48328-1, HA1C, CBCA #### [facility] ([id number]) [address], [facility] [address] [place] [address] Hemoglobin (Bld) [Mass/Vol] 10.8 g/dL Low 11.7-15. 5 [facility] Comment on above: Performed By: #### 6 873-4, 54715-6, 76627-7, CMP, 09988-6, HA1C, CBCA #### [facility] ([id number]) [address] [address] Lymphocytes (Bld) [#/Vol] 0.5 10*3/uL Low 1.0-3.5 [facility] Comment on above: Performed By: #### 6 873-4, 05598-2, 13903-2, CMP, 42748-0, HA1C, CBCA #### [facility] ([id number]) [address], [address] [place] [address] Lymphocytes/100 WBC (Bld) 4.1 % Normal [facility] Comment on above: Performed By: #### 6 873-4, 04654-7, 68798-4, CMP, 88103-6, HA1C, CBCA #### [facility] ([id number]) [address] [facility] [address] [place] [address] MCH (RBC) [Entitic mass] 25.4 pg Low 27-34 [facility] Comment on above: Performed By: #### 6 873-4, 90036-7, 82876-0, CMP, 95215-2, HA1C, CBCA #### [facility] ([id number]) [address], [address] [place] [address] MCHC (RBC) [Mass/Vol] 32.2 g/dL Normal 32-36 [facility] Comment on above: Performed By: #### 6 873-4, 67435-1, 42723-9, CMP, 26844-2, HA1C, CBCA #### [facility] ([id number]) [address], [address] [place] [address] MCV (RBC) [Entitic vol] 79 fL Low 80-100 [facility] Comment on above: Performed By: #### 6 873-4, 11541-9, 32708-5, CMP, 21404-3, HA1C, CBCA #### [facility] ([id number]) [address], [address] [place] [address] Monocytes (Bld) [#/Vol] 0.9 10*3/uL Normal 0-0.9 [facility] Comment on above: Performed By: #### 6 873-4, 43419-2, 71204-8, CMP, 68397-7, HA1C, CBCA #### [facility] ([id number]) [address], [address] [place] [address] Monocytes/100 WBC (Bld) 7.0 % Normal [facility] Comment on above: Performed By: #### 6 873-4, 89258-3, 88041-8, CMP, 12468-5, HA1C, CBCA #### [facility] ([id number]) [address], [address] [place] [address] Neutrophils/100 WBC (Bld) 88.3 % Normal [facility] Comment on above: Performed By: #### 6 873-4, 54115-5, 99775-6, CMP, 64289-8, HA1C, CBCA #### [facility] ([id number]) [address], [address] [place] [address] Platelet mean volume (Bld) [Entitic vol] 7.7 fL Normal 7-12 [facility] Comment on above: Performed By: #### 6 873-4, 73464-7, 30019-9, CMP, 69295-0, HA1C, CBCA #### [facility] ([id number]) [address], [address] [place] [address] Platelets (Bld) [#/Vol] 231 10*3/uL Normal 150-450 [facility] Comment on above: Performed By: #### 6 873-4, 33499-1, 00286-9, CMP, 07650-0, HA1C, CBCA #### [facility] ([id number]) [address], [address] [place] [address] RBC COUNT 4.26 X10E12/L Normal 3.80-5.20 [facility] Comment on above: Performed By: #### 6 873-4, 35806-0, 62221-3, CMP, 77391-0, HA1C, CBCA #### [facility] ([id number]) [address] [facility], [address] [place] [address] WBC (Bld) [#/Vol] 12.4 10*3/uL High 4.0-11.0 [facility] Comment on above: Performed By: #### 6 873-4, 29901-0, 41514-9, CMP, 14591-1, HA1C, CBCA #### [facility] ([id number]) [address] [facility], [address] [place] [address] CBC auto differentialon Basophils (Bld) [#/Vol] 0.1 10*3/uL [facility] Basophils/100 WBC (Bld) 0.6 % [facility] Eosinophils (Bld) [#/Vol] 0.0 10*3/uL [facility] Eosinophils/100 WBC (Bld) 0.0 % [facility] Erythrocyte distribution width (RBC) [Ratio] 14.8 % 11.5 - 15.0 % [facility] Hematocrit (Bld) [Volume fraction] 33.7 % Low 35 - 47 % [facility] Hemoglobin (Bld) [Mass/Vol] 10.8 g/dL Low 11.7 - 15.5 g/dL [facility] Interpretation and review of laboratory results Abnormal [facility] Lymphocytes (Bld) [#/Vol] 0.5 10*3/uL Low [facility] Lymphocytes/100 WBC (Bld) 4.1 % [facility] MCH (RBC) [Entitic mass] 25.4 pg Low 27 - 34 pg [facility] MCHC (RBC) [Mass/Vol] 32.2 g/dL 32 - 36 g/dL [facility] MCV (RBC) [Entitic vol] 79 fL Low 80 - 100 fL [facility] Monocytes (Bld) [#/Vol] 0.9 10*3/uL [facility] Monocytes/100 WBC (Bld) 7.0 % [facility] Neutrophils (Bld) [#/Vol] 11.0 10*3/uL [facility] Neutrophils/100 WBC (Bld) 88.3 % [facility] Platelet mean volume (Bld) [Entitic vol] 7.7 fL 7 - 12 fL [facility] Platelets (Bld) [#/Vol] 231 10*3/uL [facility] RBC (Bld) [#/Vol] 4.26 10*6/uL [facility] WBC corrected for nucl RBC Auto (Bld) [#/Vol] 12.4 High [facility] COMPREHENSIVE METABOLIC PANE [employer] 07-03-2023 Albumin [Mass/Vol] 3.4 g/dL Normal 3.2-5.3 [facility] Comment on above: Performed By: #### 6 873-4, 89911-3, 11774-1, CMP, 63938-7, HA1C, CBCA #### [facility] ([id number]) [address], [address] [place] [address] ALP [Catalytic activity/Vol] 80 U/L Normal 39-130 [facility] Comment on above: Performed By: #### 6 873-4, 42076-9, 34316-4, CMP, 36281-6, HA1C, CBCA #### [facility] ([id number]) [address], [address] [place] [address] ALT [Catalytic activity/Vol] 14 U/L Normal 0-31 [facility] Comment on above: Performed By: #### 6 873-4, 92916-9, 90600-5, CMP, 77180-5, HA1C, CBCA #### [facility] ([id number]) [address], [address] [place] [address] Anion gap [Moles/Vol] 10 mmol/L Normal 5-15 [facility] Comment on above: Performed By: #### 6 873-4, 76081-7, 68756-2, CMP, 08580-5, HA1C, CBCA #### [facility] ([id number]) [address], [address] [place] [address] AST [Catalytic activity/Vol] 23 U/L Normal 0-41 [facility] Comment on above: Performed By: #### 6 873-4, 99974-3, 38342-8, CMP, 37559-0, HA1C, CBCA #### [facility] ([id number]) [address], [address] [place] [address] Bilirubin [Mass/Vol] 0.3 mg/dL Normal 0.3-1.2 [facility] Comment on above: Performed By: #### 6 873-4, 90481-4, 69000-6, CMP, 37203-2, HA1C, CBCA #### [facility] ([id number]) [address], [address] [place] [address] Calcium [Mass/Vol] 6.6 mg/dL Critically low 8.5-10.5 [facility] Comment on above: Performed By: #### 6 873-4, 69370-8, 95954-8, CMP, 70154-7, HA1C, CBCA #### [facility] ([id number]) [address], [address] [place] [address] Chloride [Moles/Vol] 117 mmol/L High 98-109 [facility] Comment on above: Performed By: #### 6 873-4, 07514-0, 84995-5, CMP, 48441-8, HA1C, CBCA #### [facility] ([id number]) [address], [address] [place] [address] CO2 [Moles/Vol] 12 mmol/L Low 22-32 [facility] Comment on above: Performed By: #### 6 873-4, 54378-8, 05603-0, CMP, 44185-0, HA1C, CBCA #### [facility] ([id number]) [address], [address] [place] [address] Creatinine [Mass/Vol] 0.53 mg/dL Normal 0.40-1.00 [facility] Comment on above: Result Comment: METH OD TRACEABLE TO IDMS STANDARD Performed By: #### 6 873-4, 86122-4, 91969-3, CMP, 22865-2, HA1C, CBCA #### [facility] ([id number]) [address], [address] [place] [address] eGFR (CKD-EPI) NON-RACE DEPENDENT >90 Normal >59 [facility] Comment on above: Result Comment: Reported eGFR is based on the CKD-EPI 2020 equation that does not use a race coefficient. Performed By: #### 6 873-4, 13541-9, 16837-2, CMP, 93189-8, HA1C, CBCA #### [facility] ([id number]) [address], [address] [place] [address] Glucose [Mass/Vol] 214 mg/dL High 65-99 [facility] Comment on above: Performed By: #### 6 873-4, 72627-4, 32039-1, CMP, 89085-4, HA1C, CBCA #### [facility] ([id number]) [address] [facility] [address] [place] [address] Potassium [Moles/Vol] 3.7 mmol/L Normal 3.5-5.0 [facility] Comment on above: Performed By: #### 6 873-4, 23953-8, 31917-1, CMP, 50967-0, HA1C, CBCA #### [facility] ([id number]) [address], [address] [place] [address] Protein [Mass/Vol] 5.7 g/dL Low 6.0-8.0 [facility] Comment on above: Performed By: #### 6 873-4, 43256-3, 27287-2, CMP, 05574-8, HA1C, CBCA #### [facility] ([id number]) [address], [address] [place] [address] Sodium [Moles/Vol] 139 mmol/L Normal 134-146 [facility] Comment on above: Performed By: #### 6 873-4, 64744-8, 40938-2, CMP, 11461-7, HA1C, CBCA #### [facility] ([id number]) [address] [facility] [place] [address] Urea nitrogen [Mass/Vol] 8 mg/dL Normal 5-23 [facility] Comment on above: Performed By: #### 6 873-4, 62859-0, 75409-7, CMP, 96747-0, HA1C, CBCA #### [facility] ([id number]) [address] [facility], [address] [address] Calcium.ionized (Bld) [Mass/ Vol]on 07-03-2023 IONIZED CALCIUM 4.5 mg/dL Normal 4.5-5.3 [facility] Comment on above: Performed By: #### 6 873-4, 96429-7, 71973-1, CMP, 49120-3, HA1C, CBCA #### [facility] ([id number]) [address] [facility], [address] [address] [facility] IONIZED CALCIUM 4.3 mg/dL Low 4.5-5.3 [facility] Comment on above: Performed By: #### 6 873-4, 39995-3, 41949-6, CMP, 06858-7, HA1C, CBCA #### [facility] ([id number]) [address] [facility] [facility] [place] [id number] Interpretation and review of laboratory results Abnormal [facility] Cardiac echo study Procedure Ordered By: Dilan Navarrete on 07-03-2023 Aortic root 2.70 cm [facility] Work Phone: [phone] AV mean gradient 5.00 mmHg [facility] [employer] Work Phone: [phone] AV peak gradient 9.99 mmHg [facility] [employer] Work Phone: [phone] AV peak deep 158.00 cm/s [facility] [employer] Work Phone: [phone] AV Velocity Ratio 0.60 [facility] [employer] Work Phone: [phone] AV VTI 27.60 cm [facility] [employer] Work Phone: [phone] E wave deceleration time 194.00 msec [facility] Work Phone: [phone] E/A ratio 1.15 [facility] Work Phone: [phone] Echo EF Estimated 61 % [facility] Work Phone: [phone] EF 61 % [facility] [employer] Work Phone: [phone] FS 35 % 28 - 44 % [facility] [employer] Work Phone: [phone] Interventricular Septum Diastolic Thickness by 2D 11 cm [facility] [employer] Work Phone: [phone] IVS 1.10 cm 0.6 - 1.1 cm [facility] Work Phone: [phone] LA size 3.20 cm [facility] Work Phone: [phone] LA volume 40.30 cm3 [facility] Work Phone: [phone] LA Volume Index 23.4 mL/m2 [facility] Work Phone: [phone] Left Ventricle Mass 181.38447046675852 5 g [facility] Work Phone: [phone] LV Diastolic Volume 115.00 mL [facility] Work Phone: [phone] LV ESV A2C 38.20 mL [facility] Work Phone: [phone] LV ESV A4C 39.60 mL [facility] Work Phone: [phone] LV RWT 2D 47.83 [facility] Work Phone: [phone] LV Systolic Volume 44.[address] [facility] Work Phone: [phone] LVIDd 4.60 cm 4.09 - 5.68 cm [facility] Work Phone: [phone] LVIDs 3.00 cm 2.42 - 3.67 cm [facility] Work Phone: [phone] LVOT peak deep 0.92 m/s [facility] Work Phone: [phone] LVOT peak VTI 16.50 cm [facility] Work Phone: [phone] MV Peak A Deep 76.60 cm/s [facility] Work Phone: [phone] MV Peak E Deep 87.80 cm/s [facility] Work Phone: [phone] MV pressure 1/2 time 57.00 ms [facility] [employer] Work Phone: [phone] MV TDI E' (medial) 7.29 cm/s [facility] [employer] Work Phone: [phone] MV valve area p 1/2 method 3.86 cm2 [facility] Work Phone: [phone] PW 1.10 cm 0.6 - 1.1 cm [facility] Work Phone: [phone] RV diastolic dimension (basal) 36.0 mm [facility] Work Phone: [phone] RV diastolic dimension (mid-ventricle) 31.0 cm [facility] Work Phone: [phone] RV diastolic length 62.0 cm [facility] Work Phone: [phone] RV Peak Systolic Pressure 24 mmHg [facility] Work Phone: [phone] TAPSE 2.46 cm [facility] Work Phone: [phone] TDI 10.30 cm/s [facility] Work Phone: [phone] TR peak gradient 21.72 mmHg [facility] [employer] [facility] Work Phone: [phone] TR Peak Deep 2.3 m/s [employer] Work Phone: ZLVIDD -[phone] [employer] Work Phone: ZLVIDS 0.05 [employer] Work Phone: [employer] Work Phone: Cardiac echo study Procedure on 07-03-2023 Left Ventricle: Left ventricle appears normal in size. There is borderline increased wall thickness/hypertro phy. Apical false tendon noted. Systolic function is [...] in size. There is borderline increased wall thickness/hypertro phy. Apical false tendon noted. Systolic function is [...] is normal. [facility] Radiology Study observation (narrative) [facility] Comprehensive metabolic pane galileo 07-03-2023 Albumin [Mass/Vol] 3.4 g/dL 3.2 - 5.3 g/dL Pr [facility] ALP [Catalytic activity/Vol] 80 U/L 39 - 130 U/L [facility] ALT No additional P-5'-P [Catalytic activity/Vol] 14 U/L 0 - 31 U/L [facility] Anion gap [Moles/Vol] 10 mmol/L 5 - 15 mmol/L [facility] AST [Catalytic activity/Vol] 23 U/L 0 - 41 U/L [facility] Bilirubin [Mass/Vol] 0.3 mg/dL 0.3 - 1 .2 mg/dL [facility] Calcium [Mass/Vol] 6.6 mg/dL Critically low 8.5 - 1 0.5 mg/dL [facility] Chloride [Moles/Vol] 117 mmol/L High 98 - 10 9 mmol/L [facility] CO2 [Moles/Vol] 12 mmol/L Low 22 - 32 mmol/L [facility] Creatinine [Mass/Vol] 0.53 mg/dL 0.40 - 1.00 mg/dL [facility] Comment on above: METHOD TRACEABLE TO IDMS STANDARD eGFR (CKD-EPI)non-race dependent - PINF [facility] Comment on above: Reported eGFR is based on the CKD-EPI 2020 equation that does not use a race coefficient. Glucose [Mass/Vol] 214 mg/dL High 65 - 99 mg/dL [facility] Potassium [Moles/Vol] 3.7 mmol/L 3.5 - 5.0 mmol/L [facility] Protein [Mass/Vol] 5.7 g/dL Low 6.0 - 8.0 g/dL Pr [facility] Sodium [Moles/Vol] 139 mmol/L 134 - 146 mmol/L [facility] Urea nitrogen [Mass/Vol] 8 mg/dL 5 - 23 mg/d L [facility] ELECTROLYTESon 07-03-2023 Anion gap [Moles/Vol] 7 mmol/L Normal 5-15 [facility] Comment on above: Performed By: #### 6 873-4, 01410-1, 37384-0, CMP, 10531-3, HA1C, CBCA #### [facility] ([id number]) [address], [address] [place] [address] Chloride [Moles/Vol] 108 mmol/L Normal 98-109 [facility] Comment on above: Performed By: #### 6 873-4, 44841-8, 80553-9, CMP, 32319-3, HA1C, CBCA #### [facility] ([id number]) [address], [address] [place] [address] CO2 [Moles/Vol] 20 mmol/L Low 22-32 [facility] Comment on above: Performed By: #### 6 873-4, 92996-7, 76939-2, CMP, 62323-9, HA1C, CBCA #### [facility] ([id number]) [address], [address] [place] [address] Potassium [Moles/Vol] 3.4 mmol/L Low 3.5-5.0 [facility] Comment on above: Performed By: #### 6 873-4, 01835-2, 82807-5, CMP, 85678-5, HA1C, CBCA #### [facility] ([id number]) [address], [address] [place] [address] Sodium [Moles/Vol] 135 mmol/L Normal 134-146 [facility] Comment on above: Performed By: #### 6 873-4, 19475-2, 02274-9, CMP, 65978-3, HA1C, CBCA #### [facility] ([id number]) [address], [address] [place] [address] Anion gap [Moles/Vol] 12 mmol/L Normal 5-15 [facility] Comment on above: Performed By: #### 6 873-4, 53886-7, 96044-6, CMP, 61574-8, HA1C, CBCA #### [facility] ([id number]) [address], [address] [place] [address] Chloride [Moles/Vol] 108 mmol/L Normal 98-109 [facility] Comment on above: Performed By: #### 6 873-4, 31543-4, 93454-7, CMP, 43213-6, HA1C, CBCA #### [facility] ([id number]) [address], [address] [place] [address] CO2 [Moles/Vol] 15 mmol/L Low 22-32 [facility] Comment on above: Performed By: #### 6 873-4, 01767-0, 60825-4, CMP, 46314-8, HA1C, CBCA #### [facility] ([id number]) [address], [address] [place] [address] Potassium [Moles/Vol] 3.7 mmol/L Normal 3.5-5.0 [facility] Comment on above: Performed By: #### 6 873-4, 87897-6, 42090-3, CMP, 12804-6, HA1C, CBCA #### [facility] ([id number]) [address], [address] [place] [address] Sodium [Moles/Vol] 135 mmol/L Normal 134-146 [facility] Comment on above: Performed By: #### 6 873-4, 83537-5, 94234-6, CMP, 07609-4, HA1C, CBCA #### [facility] ([id number]) [address], [address] [place] [address] Anion gap [Moles/Vol] 8 mmol/L Normal 5-15 [facility] Comment on above: Performed By: #### 6 873-4, 72953-5, 62701-8, CMP, 11052-0, HA1C, CBCA #### [facility] ([id number]) [address], [address] [place] [address] Chloride [Moles/Vol] 108 mmol/L Normal 98-109 [facility] Comment on above: Performed By: #### 6 873-4, 54097-8, 60808-2, CMP, 31292-1, HA1C, CBCA #### [facility] ([id number]) [address], [address] [place] [address] CO2 [Moles/Vol] 18 mmol/L Low 22-32 [facility] Comment on above: Performed By: #### 6 873-4, 28481-9, 26084-5, CMP, 39310-1, HA1C, CBCA #### [facility] ([id number]) [address], [address] [place] [address] Potassium [Moles/Vol] 3.7 mmol/L Normal 3.5-5.0 [facility] Comment on above: Performed By: #### 6 873-4, 67887-1, 13517-3, CMP, 96300-4, HA1C, CBCA #### [facility] ([id number]) [address], [address] [place] [address] Sodium [Moles/Vol] 134 mmol/L Normal 134-146 [facility] Comment on above: Performed By: #### 6 873-4, 74707-8, 06611-5, CMP, 76431-3, HA1C, CBCA #### [facility] ([id number]) [address], [address] [place] [address] Anion gap [Moles/Vol] 8 mmol/L Normal 5-15 [facility] [place] [facility] Comment on above: Performed By: #### 6 873-4, 57330-4, 27422-0, CMP, 00764-0, HA1C, CBCA #### [facility] ([id number]) [address], [address] [place] [address] Chloride [Moles/Vol] 116 mmol/L High 98-109 [facility] Comment on above: Performed By: #### 6 873-4, 32618-0, 99746-2, CMP, 77064-4, HA1C, CBCA #### [facility] ([id number]) [address], [address] [place] [address] CO2 [Moles/Vol] 15 mmol/L Low 22-32 [facility] Comment on above: Performed By: #### 6 873-4, 37190-5, 07624-9, CMP, 98225-5, HA1C, CBCA #### [facility] ([id number]) [address], [address] [place] [address] Potassium [Moles/Vol] 3.0 mmol/L Low 3.5-5.0 [facility] Comment on above: Performed By: #### 6 873-4, 11938-3, 85069-2, CMP, 89063-8, HA1C, CBCA #### [facility] ([id number]) [address], [address] [place] [address] Sodium [Moles/Vol] 139 mmol/L Normal 134-146 [facility] Comment on above: Performed By: #### 6 873-4, 07676-2, 70468-3, CMP, 48818-7, HA1C, CBCA #### [facility] ([id number]) [address], [address] [place] [address] Anion gap [Moles/Vol] 8 mmol/L Normal 5-15 [facility] Comment on above: Performed By: #### 6 873-4, 52572-4, 70395-3, CMP, 22161-4, HA1C, CBCA #### [facility] ([id number]) [address], [address] [place] [address] Chloride [Moles/Vol] 121 mmol/L High 98-109 [facility] Comment on above: Performed By: #### 6 873-4, 68922-6, 24128-1, CMP, 48148-8, HA1C, CBCA #### [facility] ([id number]) [address], [address] [place] [address] CO2 [Moles/Vol] 13 mmol/L Low 22-32 [facility] Comment on above: Performed By: #### 6 873-4, 49924-4, 83214-1, CMP, 06643-5, HA1C, CBCA #### [facility] ([id number]) [address], [address] [place] [address] Potassium [Moles/Vol] 3.2 mmol/L Low 3.5-5.0 [facility] Comment on above: Performed By: #### 6 873-4, 04132-0, 31073-1, CMP, 64765-1, HA1C, CBCA #### [facility] ([id number]) [address], [address] [place] [address] Sodium [Moles/Vol] 142 mmol/L Normal 134-146 [facility] Comment on above: Performed By: #### 6 873-4, 77446-7, 36161-3, CMP, 57889-1, HA1C, CBCA #### [facility] ([id number]) [address], [address] [place] [address] Electrolyte panelon 07-03-19 24 Anion gap [Moles/Vol] 7 mmol/L 5 - 15 mmol/L [facility] Chloride [Moles/Vol] 108 mmol/L 98 - 10 9 mmol/L [facility] CO2 [Moles/Vol] 20 mmol/L Low 22 - 32 mmol/L [facility] Potassium [Moles/Vol] 3.4 mmol/L Low 3.5 [...] 15 mmol/L Low 22 - 32 mmol/L [facility] Potassium [Moles/Vol] 3.7 mmol/L 3.5 - 5.0 mmol/L [facility] Sodium [Moles/Vol] 135 mmol/L 134 - 146 mmol/L [facility] Anion gap [Moles/Vol] 8 mmol/L 5 - 15 mmol/L [facility] Chloride [Moles/Vol] 108 mmol/L 98 - 10 9 mmol/L [facility] CO2 [Moles/Vol] 18 mmol/L Low 22 - 32 mmol/L [facility] Potassium [Moles/Vol] 3.7 mmol/L 3.5 - 5.0 mmol/L [facility] Sodium [Moles/Vol] 134 mmol/L 134 - 146 mmol/L [facility] Anion gap [Moles/Vol] 8 mmol/L 5 - 15 mmol/L [facility] Chloride [Moles/Vol] 116 mmol/L High 98 - 10 9 mmol/L [facility] CO2 [Moles/Vol] 15 mmol/L Low 22 - 32 mmol/L [facility] Interpretation and review of laboratory results Abnormal [facility] Potassium [Moles/Vol] 3.0 mmol/L Low 3.5 - 5.0 mmol/L [facility] Sodium [Moles/Vol] 139 mmol/L 134 - 146 mmol/L [facility] Anion gap [Moles/Vol] 8 mmol/L 5 - 15 mmol/L [facility] Chloride [Moles/Vol] 121 mmol/L High 98 - 10 9 mmol/L [facility] CO2 [Moles/Vol] 13 mmol/L Low 22 - 32 mmol/L [facility] Interpretation and review of laboratory results Abnormal [facility] Potassium [Moles/Vol] 3.2 mmol/L Low 3.5 - 5.0 mmol/L [facility] Sodium [Moles/Vol] 142 mmol/L 134 - 146 mmol/L [facility] Glucose Glucometer (BldC) [M ass/Vol]on 07-03-2023 Glucose [Mass/Vol] 238 mg/dL High 65 - 99 mg/dL [facility] Interpretation and review of laboratory results Abnormal [facility] Glucose [Mass/Vol] 251 mg/dL High 65-99 [facility] Glucose [Mass/Vol] 265 mg/dL High 65 - 99 mg/dL [facility] Interpretation and review of laboratory results Abnormal [facility] Glucose [Mass/Vol] 243 mg/dL High 65-99 [facility] Glucose [Mass/Vol] 241 mg/dL High 65-99 [facility] Glucose [Mass/Vol] 251 mg/dL High 65 - 99 mg/dL [facility] Interpretation and review of laboratory results Abnormal [facility] Glucose [Mass/Vol] 243 mg/dL High 65 - 99 mg/dL [facility] Interpretation and review of laboratory results Abnormal [facility] Glucose [Mass/Vol] 171 mg/dL High 65-99 [facility] Glucose [Mass/Vol] 241 mg/dL High 65 - 99 mg/dL [facility] Interpretation and review of laboratory results Abnormal [facility] Glucose [Mass/Vol] 171 mg/dL High 65 - 99 mg/dL [facility] Interpretation and review of laboratory results Abnormal [facility] Glucose [Mass/Vol] 186 mg/dL High 65-99 [facility] Glucose [Mass/Vol] 186 mg/dL High 65 - 99 mg/dL [facility] Interpretation and review of laboratory results Abnormal [facility] Glucose [Mass/Vol] 130 mg/dL High 65-99 [facility] Interpretation and review of laboratory results Abnormal [facility] Glucose [Mass/Vol] 149 mg/dL High 65-99 [facility] [place] [facility] Glucose [Mass/Vol] 200 mg/dL High 65-99 [facility] [place] [facility] Glucose [Mass/Vol] 149 mg/dL High 65 - 99 mg/dL [facility] Interpretation and review of laboratory results Abnormal [facility] Glucose [Mass/Vol] 215 mg/dL High 65-99 [facility] [place] [facility] Glucose [Mass/Vol] 253 mg/dL High 65-99 [facility] Interpretation and review of laboratory results Abnormal [facility] Glucose [Mass/Vol] 200 mg/dL High 65 - 99 mg/dL [facility] Interpretation and review of laboratory results Abnormal [facility] Glucose [Mass/Vol] 215 mg/dL High 65 - 99 mg/dL [facility] Interpretation and review of laboratory results Abnormal [facility] Glucose [Mass/Vol] 219 mg/dL High 65-99 [facility] Glucose [Mass/Vol] 223 mg/dL High 65-99 [facility] Glucose [Mass/Vol] 219 mg/dL High 65 - 99 mg/dL [facility] Interpretation and review of laboratory results Abnormal [facility] Glucose [Mass/Vol] 160 mg/dL High 65-99 [facility] [place] [facility] Glucose [Mass/Vol] 223 mg/dL High 65 - 99 mg/dL [facility] Interpretation and review of laboratory results Abnormal [facility] Glucose [Mass/Vol] 154 mg/dL High 65-99 [facility] [place] [facility] Glucose [Mass/Vol] 160 mg/dL High 65 - 99 mg/dL [facility] Interpretation and review of laboratory results Abnormal [facility] Glucose [Mass/Vol] 186 mg/dL High 65-99 [facility] [place] [facility] Glucose [Mass/Vol] 154 mg/dL High 65 - 99 mg/dL [facility] Interpretation and review of laboratory results Abnormal [facility] Glucose [Mass/Vol] 212 mg/dL High 65-99 [facility] Glucose [Mass/Vol] 186 mg/dL High 65 - 99 mg/dL [facility] Interpretation and review of laboratory results Abnormal [facility] Glucose [Mass/Vol] 233 mg/dL High 65-99 [facility] Glucose [Mass/Vol] 212 mg/dL High 65 - 99 mg/dL [facility] Interpretation and review of laboratory results Abnormal [facility] Ionized calciumon 07-03-2023 Calcium.ionized (Bld) [Mass/Vol] 4.5 mg/dL 4.5 - 5.3 mg/dL [facility] Calcium.ionized (Bld) [Mass/Vol] 4.3 mg/dL Low 4.5 - 5.3 mg/dL [facility] MAGNESIUMon 07-03-2023 Magnesium [Mass/Vol] 1.8 mg/dL Normal 1.8-2.6 [facility] Comment on above: Performed By: #### 6 873-4, 43433-4, 82538-5, CMP, 08760-1, HA1C, CBCA #### [facility] ([id number]) [address] [place] [address] [address] [place] [address] Magnesiumon 07-03-2023 Magnesium [Mass/Vol] 1.8 mg/dL 1.8 - 2 .6 mg/dL [facility] No Panel Informationon 07-03 Interpretation and review of laboratory results Abnormal [facility] Interpretation and review of laboratory results Abnormal [facility] Interpretation and review of laboratory results Abnormal [facility] Interpretation and review of laboratory results Abnormal [facility] Interpretation and review of laboratory results Abnormal [facility] Interpretation and review of laboratory results Abnormal [facility] PHOSPHORUSon 07-03-2023 Phosphate [Mass/Vol] 1.1 mg/dL Low 2.4-4.9 [facility] Comment on above: Performed By: #### 6 873-4, 15198-4, 76053-2, CMP, 67550-4, HA1C, CBCA #### [facility] ([id number]) [address], [address] [place] [address] Phosphate [Mass/Vol] 2.2 mg/dL Low 2.4-4.9 [facility] Comment on above: Performed By: #### 6 873-4, 14853-0, 86744-2, CMP, 59724-4, HA1C, CBCA #### [facility] ([id number]) [address], [address] [place] [address] Phosphate [Mass/Vol] 1.9 mg/dL Low 2.4-4.9 [facility] Comment on above: Performed By: #### 6 873-4, 82761-6, 12605-7, CMP, 16193-7, HA1C, CBCA #### [facility] ([id number]) [address], [address] [place] [address] Phosphate [Mass/Vol] mg/dL Critically low 2.4-4.9 [facility] Comment on above: Performed By: #### 6 873-4, 21627-1, 60238-1, CMP, 90213-1, HA1C, CBCA #### [facility] ([id number]) [address], [address] [place] [address] Phosphate [Mass/Vol] 2.2 mg/dL Low 2.4-4.9 [facility] Comment on above: Performed By: #### 6 873-4, 68783-5, 08972-5, CMP, 02373-3, HA1C, CBCA #### [facility] ([id number]) [address], [address] [place] [address] Phosphate [Mass/Vol] mg/dL Critically low 2.4-4.9 [facility] Comment on above: Performed By: #### 6 873-4, 28703-2, 77742-9, CMP, 05477-5, HA1C, CBCA #### [facility] ([id number]) [address], [address] [place] [address] Phosphate [Mass/Vol]on 07-03 Interpretation and review of laboratory results Abnormal [facility] Phosphoruson 07-03-2023 Phosphate [Mass/Vol] 1.1 mg/dL Low 2.4 - 4 .9 mg/dL [facility] Phosphate [Mass/Vol] 2.2 mg/dL Low 2.4 - 4 .9 mg/dL [facility] Phosphate [Mass/Vol] 1.9 mg/dL Low 2.4 - 4 .9 mg/dL [facility] Phosphate [Mass/Vol] mg/dL Critically low 2.4 - 4.9 mg/dL [facility] Phosphate [Mass/Vol] 2.2 mg/dL Low 2.4 - 4 .9 mg/dL [facility] Phosphate [Mass/Vol] mg/dL Critically low 2.4 - 4.9 mg/dL [facility] TROPONIN Ion 07-03-2023 Troponin I.cardiac [Mass/Vol] 0.69 ng/mL Critically high 0.00-0.04 [facility] Comment on above: Result Comment: Concentrations greater than or equal to 0.05 ng/ml are considered elevated. Elevations of Troponin may be due to causes other than myocardial ischemia. Recommend serial Troponin testing be performed. Performed By: #### 6 873-4, 21692-7, 41026-3, CMP, 52638-5, HA1C, CBCA #### [facility] ([id number]) [address], [address] [place] [address] Troponin I.cardiac [Mass/Vol] 0.75 ng/mL Critically high 0.00-0.04 [facility] Comment on above: Result Comment: Concentrations greater than or equal to 0.05 ng/ml are considered elevated. Elevations of Troponin may be due to causes other than myocardial ischemia. Recommend serial Troponin testing be performed. Performed By: #### 6 873-4, 80454-9, 23937-0, CMP, 99597-2, HA1C, CBCA #### [facility] ([id number]) [address] [place] [address], [facility] [address] [place] [address] Troponin I.cardiac [Mass/Vol] 1.53 ng/mL Critically high 0.00-0.04 [facility] Comment on above: Result Comment: Concentrations greater than or equal to 0.05 ng/ml are considered elevated. Elevations of Troponin may be due to causes other than myocardial ischemia. Recommend serial Troponin testing be performed. Performed By: #### 6 873-4, 25133-4, 60641-7, CMP, 54309-3, HA1C, CBCA #### [facility] ([id number]) [address] [place] [address], [facility] [address] [place] [address] Troponin I.cardiac [Mass/Vol] 1.80 ng/mL Critically high 0.00-0.04 [facility] Comment on above: Result Comment: Concentrations greater than or equal to 0.05 ng/ml are considered elevated. Elevations of Troponin may be due to causes other than myocardial ischemia. Recommend serial Troponin testing be performed. Performed By: #### 6 873-4, 18091-9, 27377-4, CMP, 80945-1, HA1C, CBCA #### [facility] ([id number]) [address] [place] [address] Troponin Ion 07-03-2023 Troponin I.cardiac [Mass/Vol] 0.69 ng/mL Critically high 0.00 - 0.04 ng/mL [facility] Comment on above: Concentrations greater than or equal to 0.05 ng/ml are considered elevated. Elevations of Troponin may be due to causes other than myocardial ischemia. Recommend serial Troponin testing be performed. Troponin I.cardiac [Mass/Vol] 0.75 ng/mL Critically high 0.00 - 0.04 ng/mL [facility] Comment on above: Concentrations greater than or equal to 0.05 ng/ml are considered elevated. Elevations of Troponin may be due to causes other than myocardial ischemia. Recommend serial Troponin testing be performed. Troponin I.cardiac [Mass/Vol] 1.53 ng/mL Critically high 0.00 - 0.04 ng/mL [facility] Comment on above: Concentrations greater than or equal to 0.05 ng/ml are considered elevated. Elevations of Troponin may be due to causes other than myocardial ischemia. Recommend serial Troponin testing be performed. Troponin I.cardiac [Mass/Vol] 1.80 ng/mL Critically high 0.00 - 0.04 ng/mL [facility] Comment on above: Concentrations greater than or equal to 0.05 ng/ml are considered elevated. Elevations of Troponin may be due to causes other than myocardial ischemia. Recommend serial Troponin testing be performed. Troponin I.cardiac [Mass/Vol ]on 07-03-2023 Interpretation and review of laboratory results Abnormal [facility] Interpretation and review of laboratory results Abnormal [facility] Beta hydroxybutyrate [Moles/ Vol]on 07-02-2023 BetaHydroxybutyrate 3.34 mmol/L High 0.02-0.27 [facility] Comment on above: Performed By: #### 6 873-4, ELEC, 2777-1 ####[facility] ([id number])[address] [place] [address] BetaHydroxybutyrate 8.59 mmol/L High 0.02-0.27 [facility] Comment on above: Performed By: #### 6 873-4, 32291-9, 35607-1, CMP, 94724-1, HA1C, CBCA #### [facility] ([id number]) [address], [address] [place] [address] BetaHydroxybutyrateon 2023 Beta hydroxybutyrate [Moles/Vol] 3.34 mmol/L High 0.02 - 0.27 mmol/L [facility] Beta hydroxybutyrate [Moles/Vol] 8.59 mmol/L High 0.02 - 0.27 mmol/L [facility] Blood gas, venouson 07-02-19 24 Arterial patency Wrist artery --pre arterial puncture [facility] Base deficit (Bld) [Moles/Vol] 26.0 mmol/L High [facility] CO2 (BldV) [Partial pressure] 20.1 mm[Hg] Low [facility] HCO3 (Bld) [Moles/Vol] 4.5 mmol/L Low [facility] Interpretation and review of laboratory results Abnormal [facility] Oxygen (BldV) [Partial pressure] 27 mm[Hg] Low [facility] Oxygen therapy source and amount [CARE] RoomAir [facility] Oxygen/Inspired gas setting [Volume Fraction] Ventilator 21 % [facility] pH (BldV) 6.956 [pH] Low 7.320 - 7.420 [facility] SaO2% Calculated from oxygen partial pressure (BldV) [Mass fraction] 25.0 % Low 80.0 - PINF % [facility] Specimen site Narrative N/A P [facility] Specimen type Nom (Spec) VENOUS [facility] CBC AND AUTO DIFFon 07-02-19 24 ABSOLUTE BASOPHIL 0.2 X10E9/L Normal 0.0-0.2 [facility] Comment on above: Performed By: #### 6 873-4, 98550-0, 35459-7, CMP, 28060-0, HA1C, CBCA #### [facility] ([id number]) [address], [address] [place] [address] ABSOLUTE NEUTROPHIL 16.1 X10E9/L High 1.5-6.6 [facility] Comment on above: Performed By: #### 6 873-4, 66622-0, 70828-3, CMP, 48923-6, HA1C, CBCA #### [facility] ([id number]) [address], [address] [place] [address] Basophils/100 WBC (Bld) 0.9 % Normal [facility] Comment on above: Performed By: #### 6 873-4, 02836-8, 21673-1, CMP, 92252-7, HA1C, CBCA #### [facility] ([id number]) [address], [address] [place] [address] Eosinophils (Bld) [#/Vol] 0.0 10*3/uL Normal 0.0-0.4 [facility] Comment on above: Performed By: #### 6 873-4, 34356-3, 52425-3, CMP, 53066-8, HA1C, CBCA #### [facility] ([id number]) [address], [address] [place] [address] Eosinophils/100 WBC (Bld) 0.0 % Normal [facility] Comment on above: Performed By: #### 6 873-4, 63713-0, 66068-4, CMP, 81078-1, HA1C, CBCA #### [facility] ([id number]) [address] [address] Erythrocyte distribution width (RBC) [Ratio] 14.8 % Normal 11.5-15.0 [facility] Comment on above: Performed By: #### 6 873-4, 05798-3, 74786-0, CMP, 80077-8, HA1C, CBCA #### [facility] ([id number]) [address] [address] Hematocrit (Bld) [Volume fraction] 36.5 % Normal 35-47 [facility] Comment on above: Performed By: #### 6 873-4, 26692-0, 86643-1, CMP, 13312-6, HA1C, CBCA #### [facility] ([id number]) [address] [facility] [address] [place] [address] Hemoglobin (Bld) [Mass/Vol] 11.5 g/dL Low 11.7-15. 5 [facility] Comment on above: Performed By: #### 6 873-4, 15758-3, 12271-9, CMP, 34591-1, HA1C, CBCA #### [facility] ([id number]) [address] [address] Lymphocytes (Bld) [#/Vol] 1.8 10*3/uL Normal 1.0-3.5 [facility] Comment on above: Performed By: #### 6 873-4, 29274-6, 34845-6, CMP, 94024-4, HA1C, CBCA #### [facility] ([id number]) [address] [address] Lymphocytes/100 WBC (Bld) 9.3 % Normal [facility] Comment on above: Performed By: #### 6 873-4, 64158-3, 47288-9, CMP, 90313-2, HA1C, CBCA #### [facility] ([id number]) [address], [address] [place] [address] MCH (RBC) [Entitic mass] 25.4 pg Low 27-34 [facility] Comment on above: Performed By: #### 6 873-4, 66632-4, 17438-0, CMP, 62794-2, HA1C, CBCA #### [facility] ([id number]) [address], [address] [place] [address] MCHC (RBC) [Mass/Vol] 31.6 g/dL Low 32-36 [facility] Comment on above: Performed By: #### 6 873-4, 07738-0, 04321-3, CMP, 84582-4, HA1C, CBCA #### [facility] ([id number]) [address], [address] [place] [address] MCV (RBC) [Entitic vol] 81 fL Normal 80-100 [facility] Comment on above: Performed By: #### 6 873-4, 17534-5, 46175-3, CMP, 40887-3, HA1C, CBCA #### [facility] ([id number]) [address], [address] [place] [address] Monocytes (Bld) [#/Vol] 1.1 10*3/uL High 0-0.9 [facility] Comment on above: Performed By: #### 6 873-4, 52022-2, 23194-1, CMP, 47727-4, HA1C, CBCA #### [facility] ([id number]) [address], [address] [place] [address] Monocytes/100 WBC (Bld) 5.7 % Normal [facility] Comment on above: Performed By: #### 6 873-4, 84400-7, 45017-1, CMP, 83618-1, HA1C, CBCA #### [facility] ([id number]) [address], [address] [place] [address] Neutrophils/100 WBC (Bld) 84.1 % Normal [facility] Comment on above: Performed By: #### 6 873-4, 02399-0, 95469-3, CMP, 04300-5, HA1C, CBCA #### [facility] ([id number]) [address], [address] [place] [address] Platelet mean volume (Bld) [Entitic vol] 7.8 fL Normal 7-12 [facility] Comment on above: Performed By: #### 6 873-4, 01730-7, 53011-2, CMP, 69888-9, HA1C, CBCA #### [facility] ([id number]) [address], [address] [place] [address] Platelets (Bld) [#/Vol] 261 10*3/uL Normal 150-450 [facility] Comment on above: Performed By: #### 6 873-4, 65532-3, 44690-4, CMP, 83639-9, HA1C, CBCA #### [facility] ([id number]) [address], [address] [place] [address] RBC COUNT 4.53 X10E12/L Normal 3.80-5.20 [facility] Comment on above: Performed By: #### 6 873-4, 87407-4, 98097-7, CMP, 30389-7, HA1C, CBCA #### [facility] ([id number]) [address], [address] [place] [address] WBC (Bld) [#/Vol] 19.2 10*3/uL High 4.0-11.0 [facility] Comment on above: Performed By: #### 6 873-4, 83460-7, 96967-2, CMP, 18391-5, HA1C, CBCA #### [facility] ([id number]) [address] [facility] [place] [address] CBC auto differentialon 0 Basophils (Bld) [#/Vol] 0.2 10*3/uL [facility] Basophils/100 WBC (Bld) 0.9 % [facility] Eosinophils (Bld) [#/Vol] 0.0 10*3/uL [facility] Eosinophils/100 WBC (Bld) 0.0 % [facility] Erythrocyte distribution width (RBC) [Ratio] 14.8 % 11.5 - 15.0 % [facility] Hematocrit (Bld) [Volume fraction] 36.5 % 35 - 47 % [facility] Hemoglobin (Bld) [Mass/Vol] 11.5 g/dL Low 11.7 - 15.5 g/dL [facility] Interpretation and review of laboratory results Abnormal [facility] Lymphocytes (Bld) [#/Vol] 1.8 10*3/uL [facility] Lymphocytes/100 WBC (Bld) 9.3 % [facility] MCH (RBC) [Entitic mass] 25.4 pg Low 27 - 34 pg [facility] MCHC (RBC) [Mass/Vol] 31.6 g/dL Low 32 - 36 g/dL [facility] MCV (RBC) [Entitic vol] 81 fL 80 - 100 fL [facility] Monocytes (Bld) [#/Vol] 1.1 10*3/uL High [facility] Monocytes/100 WBC (Bld) 5.7 % [facility] Neutrophils (Bld) [#/Vol] 16.1 10*3/uL High [facility] Neutrophils/100 WBC (Bld) 84.1 % [facility] Platelet mean volume (Bld) [Entitic vol] 7.8 fL 7 - 12 fL [facility] Platelets (Bld) [#/Vol] 261 10*3/uL [facility] RBC (Bld) [#/Vol] 4.53 10*6/uL [facility] WBC corrected for nucl RBC Auto (Bld) [#/Vol] 19.2 High [facility] COMPREHENSIVE METABOLIC PANE [place] 07-02-2023 Albumin [Mass/Vol] 4.0 g/dL Normal 3.2-5.3 [facility] Comment on above: Performed By: #### 6 873-4, 17187-1, 12111-2, CMP, 49847-7, HA1C, CBCA #### [facility] ([id number]) [address], [address] [place] [address] ALP [Catalytic activity/Vol] 93 U/L Normal 39-130 [facility] Comment on above: Performed By: #### 6 873-4, 85585-9, 09248-1, CMP, 15952-2, HA1C, CBCA #### [facility] ([id number]) [address], [address] [place] [address] ALT [Catalytic activity/Vol] 17 U/L Normal 0-31 [facility] Comment on above: Performed By: #### 6 873-4, 43383-1, 06198-9, CMP, 27850-3, HA1C, CBCA #### [facility] ([id number]) [address], [address] [place] [address] Anion gap [Moles/Vol] 20 mmol/L High 5-15 [facility] Comment on above: Performed By: #### 6 873-4, 35048-6, 65921-3, CMP, 35572-1, HA1C, CBCA #### [facility] ([id number]) [address], [address] [place] [address] AST [Catalytic activity/Vol] 25 U/L Normal 0-41 [facility] Comment on above: Performed By: #### 6 873-4, 08525-3, 39059-5, CMP, 52849-7, HA1C, CBCA #### [facility] ([id number]) [address], [address] [place] [address] Bilirubin [Mass/Vol] 0.2 mg/dL Low 0.3-1.2 [facility] Comment on above: Performed By: #### 6 873-4, 71434-0, 94023-4, CMP, 09485-0, HA1C, CBCA #### [facility] ([id number]) [address], [address] [place] [address] Calcium [Mass/Vol] 7.0 mg/dL Low 8.5-10.5 [facility] Comment on above: Performed By: #### 6 873-4, 99146-3, 17561-4, CMP, 09312-0, HA1C, CBCA #### [facility] ([id number]) [address], [address] [place] [address] Chloride [Moles/Vol] 116 mmol/L High 98-109 [facility] Comment on above: Performed By: #### 6 873-4, 10950-3, 34536-7, CMP, 22917-1, HA1C, CBCA #### [facility] ([id number]) [address], [address] [place] [address] CO2 [Moles/Vol] 5 mmol/L Critically low 22-[address] [facility] Comment on above: Performed By: #### 6 873-4, 97815-2, 79639-7, CMP, 99014-3, HA1C, CBCA #### [facility] ([id number]) [address], [address] [place] [address] Creatinine [Mass/Vol] 0.71 mg/dL Normal 0.40-1.00 [facility] Comment on above: Result Comment: METH OD TRACEABLE TO IDMS STANDARD Performed By: #### 6 873-4, 34056-9, 53637-6, CMP, 59415-0, HA1C, CBCA #### [facility] ([id number]) [address], [address] [place] [address] eGFR (CKD-EPI) NON-RACE DEPENDENT >90 Normal >59 [facility] Comment on above: Result Comment: Reported eGFR is based on the CKD-EPI 2020 equation that does not use a race coefficient. Performed By: #### 6 873-4, 74289-8, 28768-9, CMP, 38235-4, HA1C, CBCA #### [facility] ([id number]) [address], [address] [place] [address] Glucose [Mass/Vol] 260 mg/dL High 65-99 [facility] Comment on above: Performed By: #### 6 873-4, 83706-1, 60586-1, CMP, 29234-7, HA1C, CBCA #### [facility] ([id number]) [address], [address] [place] [address] Potassium [Moles/Vol] 4.6 mmol/L Normal 3.5-5.0 [facility] Comment on above: Performed By: #### 6 873-4, 04506-4, 39724-9, CMP, 12113-1, HA1C, CBCA #### [facility] ([id number]) [address], [address] [place] [address] Protein [Mass/Vol] 6.4 g/dL Normal 6.0-8.0 [facility] Comment on above: Performed By: #### 6 873-4, 96589-8, 84138-4, CMP, 70088-8, HA1C, CBCA #### [facility] ([id number]) [address], [address] [place] [address] Sodium [Moles/Vol] 141 mmol/L Normal 134-146 [facility] Comment on above: Performed By: #### 6 873-4, 40687-4, 26320-2, CMP, 17644-4, HA1C, CBCA #### [facility] ([id number]) [address] [facility], [address] [place] [address] Urea nitrogen [Mass/Vol] 16 mg/dL Normal 5-23 [facility] Comment on above: Performed By: #### 6 873-4, 70322-6, 39035-0, CMP, 01983-5, HA1C, CBCA #### [facility] ([id number]) [address] [facility], [address] [place] [address] Coding Summaryon 07-02-2023 Coding Summary HTMLBase 64 WusxvfldVYi8iId+PG hlYWQ+AU9APAWpO61u cPKfwP1oZ0GXYCyCTj wgQVBQTElOSyIgbmFt GE1gsHMtDLSw IC8+SP7eVGKnBlzzyL Ohx6E0uIT1I34ahj0f JRrygGR5QINxXfEojl iwp3yxwTe8CRncFkcf OyBt IXNozM60OWR1eZ90Ie 93cYJwgDAzl7jbbWi7 TmQfWSSoBZS5dCwkTV avp4BjVFKkN33lnBSf c2U6 IGNvbGxhcHNlOyBlbX V4lM9vDHuimtcjh4vi tlnwRrb2iq64uUFnk7 F1bAJ2J2WegxG9PYCg bGQg AxvubKXTmM1bbvpit1 xvcjogIzAwMDAwMDt0 DFx9TBNvlSdcGlWgFT 47YMA1KYVtykCyN8Lg LWFs hProKbL8f3T6Xy3YO2 ZHDadoR3THXSEQVTqt dGQ+JZ18jg24Z0TrIv azIqs9ODJzDYA1oWN1 aD0n FRGnFDufr6M0nWO8Q8 LducTmvj1zn9vvTQBd UVhlQ31rjPDjt5W5LE HihIP8ERMuoEemKqWq aG93 Oyc+GDZahVuiy2QkBn pgm1xon2tdfMp3Pbhv UXRhxtFkgNhcDHE5g0 ClLb4dFGKilOA7zDH2 aD0i PzKqClO2CZbsG235Sa YewVLvLsmtS33tE5Sl dXA+NYOuVgg9PHQthR fiEI5lX7WnHAEdpdju bGVm aKbdOW1lVGFtejyvLP PlfS0hMUBnA3t4LrCk YaX8TUvjZ8KhAHFbom wjIm83xO6pGbCpCvT5 MGlu J4ZzxrN8CDYngNYcJP cwATB8W11ee1Q0INEa TRHuQAV4qEF1zW5tiF lnbjogbGVmdDsgdmVy dGlj XAzuFRmkB940EHNmkP snPkNvZGluZyBEYXRl OiAgMDEvMDMvMjAyND wvdGQ+FCHmLDH7jCcu PSAn zOXbVAdqAp9tcTaotD vuYX6gWFJskoucZZKl aO6oEGPimHCepKfzIB 9sIBOtqvyuf635ArPw MHB0 GILsqWTdP5YekR3kVh CuHBPmRZSsO5QqhAPy BMyaJ967JLqtCkZ0EP KglgRqQ9IfNDAttWvf OiB0 c6J7Gk7Sf0HpqozuW4 RhdHVzOiAgRmluYWw8 B5RpTgojcQZ+PC90YW QmPD94YAc2CLG3sMcm PSdi UJAsG7RcgN3lFnTdFC RkZGRkOyc+PHRhYmxl IHdpZHRoPScxMDAlJy GrdPwjTS2uQc7uWNGr LWNv gAntvGXjSbNvn1wwAK XxWZokHO8gaOvlT7Ct lHN1YOIow1t7Mg26Y1 0jZ2TmbKZ+PGNvbCB3 aWR0 eN3iHyLaNwG8HChoT6 05OiItrSIjDijhv3oz p2cepFk5WsK9GKYzio CyaSzcXIG7b9FvFq95 Y29s IHdpZHRoPSIxNSUiIH VuwXsuyy8qpC1xTt2+ XIFffHJ8rQS2mU9pIm TkCfU7WUwvD524OxIm cCIv Xaoip8mxc2xdcXe3By IwJSIgdmFsaWduPSJ0 p1SuSe01I6OgtYaud5 ZnKrg3aq97xEGbo3I9 bGU9 H7XdKUVunqbhjMHlwZ kaYL4cQPBqwjogSSNk gE5lGKEjV3u2NpBfKd D7PNwnS2IstuS8HWZj bGQg ZQItkSRAmN1ehkqyr5 xvcjogIzAwMDAwMDt0 PJk1STOysWceAaDoJK A9FyF2LAS9qGBooU6y bGln kktmuE1jDxt+UGF0aW HskCKJOF9wFfaksJD+ GPKgYRC1lKkrUYdqRB CziH8tJFNoU4b1SdYg LjA1 MRxvX9ZmvfW0PNVfeQ SdNKIwmCPChO8owlao z6npcljdQmRaLTMmWY p9MZg1TSAsqNykUpMc ZWZ0 ViE2MQM3aOBmxY7fiX cqoiiurF4sSdx+Qmly tEykZKS3VDd7E3ZzGd a8WNWlqPkfYE8rgORm ZGlu Mh4wgVbdlIgaQK2iFO Tkhagzr505IxTkh0zk YVAntKMaATawKRM6X0 6kk9P1ZHJuMSQyGOZ9 dGV4 nJ0elZlelrvdcQCzsF sgdmVydGljYWwtYWxp Y009NATjnTswQsLyJG j4A5KuPbx3ZTRdbLpp ZT0n oKTzZWiqRr0yhVmlmG tvHV8fHAQosdcqk554 KuLla5avCVSlhIYkZY hvTFY4K07mt4Z5MWNj MDAw WBO3vIB7aG3anXuiom ogbGVmdDsgdmVydGlj ZYcfMFpjD493JWAosH onBcDzbOp4N2YwGfv4 ZCBz yYzmHV2miOJqFKjlQc 6coElxxUvaUJ0dVTCd bngda777TmHfi1oxND FrjEWrZUgtEFZ5Q35q b3I6 BLSwASYdTYQ2fWG4qF 1hbGlnbjogbGVmdDsg dmVydGljYWwtYWxpZ2 46IHRvcDsnPlBhdGll bnQg CNvcJOm1M2DcPdaimF I+NF05AMEwMG04sLAc iPIrb0aviJa9LjMnYB RfPTU4lMnxNEzfp5Gu ZXIt Q74yyCSpn0P0GEKvtD dmzYRvWdMvfWC4lK6a XAcvkpbdc9ssbiwtJu ymi7tggb39sX87W42a IHdp ZHRoPSIzMCUiIHZhbG fefn2niL5rMn7+PGNv hBT8sMJ5dY9gROGdBi K4HKmjH927UsDrmRTp Pjxj n3imx1yqaRd4LlV1IU VkvcUtlHazCZN4z2Yk Ii09G04dMSigQOKkJI NnJDJrZDLsmTqgzg3r dG9w Ii8+FZVgrTJ1iXR3mE 9fDrBiOjP5KSjcI363 YiUsdKNzHzfpE86oW0 JvdXA+TVDrZpr5KFBs dHls BE7mwJTzCRxgMw3fZL Y5XwMxFrDpGVpaH2On ZRYemgnvqelbbPZ2NW ZmIFDtaU60Px0fvCvh MTBw iHKPwH0fxqqkw7aqcc jdThPpFENcSCq8YAh6 SQCarBhfLoJeYBO4Ar O7DZI1hRYhhK0exAmu bjog xQ5kJ9JxCAByesazCs 56zI8pPpPrSnJ8KHwq Oyc+AZ4ZOWHJAXMYMA yZOREXRWTYZGN9M7Pq Pjx0 DMSemOuaGZ1cqRZwGA iqKe6tfWbkvYulHQ3p FOClajarEMBerU9qPC NdeXBcpHwyUZ3mNBJc bjtm y323FiKvQCE4MAYjyP JnC4KhpC7nUkUgGYJs JAAsO3NzuEHyURfsA7 45HIfgQxV2VHHdlfHn Y2Fs SZMnsTksMoN0m5T4Qx 7cEy5iBC2rTJwrBY70 GQ81yVWbp7M8zOH7X9 BhZGRpbmctcmlnaHQ6 IDAu CSVmyT36vKNzYEqlBj 7hz1J8s144CQHyIAEy aV86Eo1ywJatKIWpeL ETuE5scxzin4qyzifa IzAw WAPrDBe3PAf3DFDmuZ mrLqJtUKC3PbF7NHT8 mRAgmZ8auAfdhyzztF 9wOyc+MzAgWWVhcnM8 L3Rk Vrn1JZJahKpaPW0maO KzHKebYk5psYoolSfv PN3tNDXlifhnNUUzmO 3wHKOyxESgnNcpWW6y NTBp wwjpk732RjLqHMU3RS UkhBTkS5FzsN7tLpGx VASnTAXvG7MxgHPsNB gnN333TYbrMsB0SJFi cnRp M0MvICZsnWgeMdJ3w6 T3Ea2UMD6MZSO8E4Mz Ojp5SFPkjUxoQF2adU ClCXalWd8geRvyfYcd MC4w SGDshwubGQTylY9vGQ ParZXxsHbbAH7mVALt rrxyf605MkYxUXZ0YS FtrVZeN5KcbM4fItAc MDAw PZRnN1OurJUaGXrhQ8 41KKewEwG1KEJpfjFs D6XiDABofWdpUfL4z0 N5Ai6ZygMpsVydoqV1 L3Rk PjwvdHI+IS21TGAbXY 96eAYxkKIpt5hncNo3 CrHcCHWuEMA9dGvhQS ogt0IlTQDyI03uaUVf c2U6 IGNvbGxhcHNlOyBlbX O1tE3mNCrerkuhe2ji zkmrZiabb9hvem37sT 03Q05wRIleAYFyXRUd MCUi APSteIzigk1kzB0uRy 8+PBTqbAR1xGR9pP0z UaPbKcC5TFiqR332Vu TznSYcMkjji5qwr7jf dGg9 IjIwJSIgdmFsaWduPS P6a3UlGb00M92oHHzo ZHRoPSIyMCUiIHZhbG vtvh0ggE9eVv3+PC9j b2xn lr12dD75eRL+PHRkIH E9wUrdYLyaHXUzcJ8j TAjaCaE0RZKlZfXhpJ 93wXMjAIgsDh4htOfg dDog SD0uJBHrfxxow667Va Krn1ozRSUfxMLxTLsf NXQ3F27ic3Q8QHRgHO ToMXF1vQC7tJ4vrIpm bjog bGVmdDsgdmVydGljYW heBUugY238CWSrsDpk TiKhcUVoE0wyhvTMMW 1lOjwvdGQ+PHRkIHN0 eWxl ZRfmOTNmfY1hSUAjI5 u2LmQoYhW9ESbgM3Rb ryG6GBSlyIOuVRJupW XVrV2dwswcw3optflk IzAw AXXfVLy2HXc8CLZnoD myCyXfTVL1SzY6WZQ1 wWYeiD5asWkoviefwZ 9wOyc+RklOOjwvdGQ+ PHRk AMY4oHpkRRclONIgeI 6hOZSmJ8x3ElRrRcZ3 PZrgX1WocqH4IIAmyQ VxOTKnjXQYoX3snlcf b2xv enfrOoIrHYAtRVm2GI s7BNXudDivXaDoDWX0 EvY2ZWE2zMOqrE0brT ypaljrzH7hOal+TVJO Ojwv dGQ+ZCRqKEB7xLtiNP dsJBOliA9kDKRvS8e4 DhQyCjK7GWkvD8Hgbp C6AXCvuRHcPUDhePEU aW1l foxzm3hibsytOdJrEL JeKOu1HYr3QJJqiXgp FyCcHNR7VlG8AOC7tF HwrN6zaEojkeispA7q Oyc+ ADC2PSS0YA39FP55J5 RyPjwvdGFibGU+PHRh YmxlIHdpZHRoPScxMD WcGfGueFjkCT7xDv0e ZGVy LWN (more content not included)... Normal [facility] Comprehensive metabolic pane galileo 07-02-2023 Albumin [Mass/Vol] 4.0 g/dL 3.2 - 5.3 g/dL Pr [facility] ALP [Catalytic activity/Vol] 93 U/L 39 - 130 U/L [facility] ALT No additional P-5'-P [Catalytic activity/Vol] 17 U/L 0 - 31 U/L [facility] Anion gap [Moles/Vol] 20 mmol/L High 5 - 15 mmol/L [facility] AST [Catalytic activity/Vol] 25 U/L 0 - 41 U/L [facility] Bilirubin [Mass/Vol] 0.2 mg/dL Low 0.3 - 1 .2 mg/dL [facility] Calcium [Mass/Vol] 7.0 mg/dL Low 8.5 - 10. 5 mg/dL [facility] Chloride [Moles/Vol] 116 mmol/L High 98 - 10 9 mmol/L [facility] CO2 [Moles/Vol] 5 mmol/L Critically low 22 - 32 mmol/L [facility] Creatinine [Mass/Vol] 0.71 mg/dL 0.40 - 1.00 mg/dL [facility] Comment on above: METHOD TRACEABLE TO IDMS STANDARD eGFR (CKD-EPI)non-race dependent - PINF [facility] Comment on above: Reported eGFR is based on the CKD-EPI 2020 equation that does not use a race coefficient. Glucose [Mass/Vol] 260 mg/dL High 65 - 99 mg/dL [facility] Potassium [Moles/Vol] 4.6 mmol/L 3.5 - 5.0 mmol/L [facility] Protein [Mass/Vol] 6.4 g/dL 6.0 - 8.0 g/dL Pr [facility] Sodium [Moles/Vol] 141 mmol/L 134 - 146 mmol/L [facility] Urea nitrogen [Mass/Vol] 16 mg/dL 5 - 23 mg/d L [facility] ELECTROLYTESon 07-02-2023 Anion gap [Moles/Vol] 13 mmol/L Normal 5-15 [facility] Comment on above: Performed By: #### 6 873-4, ELEC, 2776-06 ####[facility] ([id number])[address], [place] [address] Chloride [Moles/Vol] 118 mmol/L High 98-109 [facility] Comment on above: Performed By: #### 6 873-4, ELEC, 2776-06 ####[facility] ([id number])[address] [place] [address] CO2 [Moles/Vol] 9 mmol/L Critically low 22-32 [facility] Comment on above: Performed By: #### 6 873-4, ELEC, 2776- ####[facility] ([id number])[address] [place] [address] Potassium [Moles/Vol] 3.5 mmol/L Normal 3.5-5.0 [facility] Comment on above: Performed By: #### 6 873-4, ELEC, 2776- ####[facility] ([id number])[address], [place] [address] Sodium [Moles/Vol] 140 mmol/L Normal 134-146 [facility] Comment on above: Performed By: #### 6 873-4, ELEC, 2777-1 ####[facility] ([id number])[address], [place] [address] Electrolyte panelon 07-02-19 Anion gap [Moles/Vol] 13 mmol/L 5 - 15 mmol/L [facility] Chloride [Moles/Vol] 118 mmol/L High 98 - 10 9 mmol/L [facility] CO2 [Moles/Vol] 9 mmol/L Critically low 22 - 32 mmol/L [facility] Potassium [Moles/Vol] 3.5 mmol/L 3.5 - 5.0 mmol/L [facility] Sodium [Moles/Vol] 140 mmol/L 134 - 146 mmol/L [facility] Glucose Glucometer (BldC) [M ass/Vol]on 07-02-2023 Glucose [Mass/Vol] 237 mg/dL High 65-99 [facility] Glucose [Mass/Vol] 287 mg/dL High 65-99 [facility] Glucose [Mass/Vol] 233 mg/dL High 65 - 99 mg/dL [facility] Interpretation and review of laboratory results Abnormal [facility] Glucose [Mass/Vol] 247 mg/dL High 65-99 [facility] Glucose [Mass/Vol] 237 mg/dL High 65 - 99 mg/dL [facility] Interpretation and review of laboratory results Abnormal [facility] Glucose [Mass/Vol] 287 mg/dL High 65 - 99 mg/dL [facility] Interpretation and review of laboratory results Abnormal [facility] Glucose [Mass/Vol] 254 mg/dL High 65-99 [facility] Glucose [Mass/Vol] 255 mg/dL High 65-99 [facility] Glucose [Mass/Vol] 247 mg/dL High 65 - 99 mg/dL [facility] Interpretation and review of laboratory results Abnormal [facility] Glucose [Mass/Vol] 254 mg/dL High 65 - 99 mg/dL [facility] System [facility] System Interpretation and review of laboratory results Abnormal [facility] Glucose [Mass/Vol] 231 mg/dL High 65-99 [facility] Glucose [Mass/Vol] 255 mg/dL High 65 - 99 mg/dL [facility] Interpretation and review of laboratory results Abnormal [facility] Glucose [Mass/Vol] 231 mg/dL High 65 - 99 mg/dL [facility] Interpretation and review of laboratory results Abnormal [facility] HGB A1C (GLYCO-HGB)on 2023 Glucose [Mass/Vol] 398 mg/dL Normal [facility] Comment on above: Performed By: #### 6 873-4, 87554-1, 33145-9, CMP, 91909-1, HA1C, CBCA #### [facility] ([id number]) [address] [place] [address], [address] [place] [address] HbA1c (Bld) [Mass fraction] 15.5 % High 4.4-5.6 [facility] Comment on above: Result Comment: NOTE ADA Guidelines Result HgbA1c Normal : less than 5.7 % Prediabetes : 5.7 % to 6.4 % Diabetes : > 6.4 % Use with caution in patients with abnormal hemoglobin variants as the half-life of red blood cells and in vivo glycation rates are affected. Performed By: #### 6 873-4, 71156-2, 45154-7, CMP, 61389-0, HA1C, CBCA #### [facility] ([id number]) [address] [place] [address] Hemoglobin A1con 07-02-2023 Average glucose Estimated from glycated hemoglobin (Bld) [Mass/Vol] 398 mg/dL [facility] HbA1c (Bld) [Mass fraction] 15.5 % High 4.4 - 5. 6 % [facility] Comment on above: NOTE ADA Guidelines Result HgbA1c Normal : less than 5.7 % Prediabetes : 5.7 % to 6.4 % Diabetes : > 6.4 % Use with caution in patients with abnormal hemoglobin variants as the half-life of red blood cells and in vivo glycation rates are affected. Interpretation and review of laboratory results Abnormal [facility] Lactateon 07-02-2023 Lactate (P denis) [Moles/Vol] 0.8 mmol/L 0.4 - 2.0 mmol/L [facility] Lactate (P denis) [Moles/Vol]o n 07-02-2023 Lactate [Moles/Vol] 0.8 mmol/L Normal 0.4-2.0 [facility] Comment on above: Performed By: #### 6 873-4, 69697-9, 08839-3, CMP, 99142-1, HA1C, CBCA #### [facility] ([id number]) [address], [address] [place] [address] [facility] MAGNESIUMon 07-02-2023 Magnesium [Mass/Vol] 1.7 mg/dL Low 1.8-2.6 [facility] Comment on above: Performed By: #### 6 873-4, 51085-4, 93293-7, CMP, 86990-1, HA1C, CBCA #### [facility] ([id number]) [address], [address] [place] [address] Magnesiumon 07-02-2023 Magnesium [Mass/Vol] 1.7 mg/dL Low 1.8 - 2 .6 mg/dL [facility] Magnesium [Mass/Vol]on 07-02 Interpretation and review of laboratory results Abnormal [facility] No Panel Informationon 07-02 Interpretation and review of laboratory results Abnormal [facility] Interpretation and review of laboratory results Abnormal [facility] PHOSPHORUSon 07-02-2023 Phosphate [Mass/Vol] mg/dL Critically low 2.4-4.9 [facility] Comment on above: Performed By: #### 6 873-4, ELEC, 2777-1 ####[facility] ([id number])[address], [address] [place] [address] Phosphoruson 07-02-2023 Phosphate [Mass/Vol] mg/dL Critically low 2.4 - 4.9 mg/dL [facility] TROPONIN Ion 07-02-2023 Troponin I.cardiac [Mass/Vol] 0.93 ng/mL Critically high 0.00-0.04 [facility] Comment on above: Result Comment: Concentrations greater than or equal to 0.05 ng/ml are considered elevated. Elevations of Troponin may be due to causes other than myocardial ischemia. Recommend serial Troponin testing be performed. Performed By: #### 6 873-4, 47783-4, 40477-8, CMP, 03775-1, HA1C, CBCA #### [facility] ([id number]) [address], [address] [place] [address] Troponin Ion 07-02-2023 Troponin I.cardiac [Mass/Vol] 0.93 ng/mL Critically high 0.00 - 0.04 ng/mL [facility] Comment on above: Concentrations greater than or equal to 0.05 ng/ml are considered elevated. Elevations of Troponin may be due to causes other than myocardial ischemia. Recommend serial Troponin testing be performed. VENOUS BLOOD GASon CAMI'S TEST Normal [facility] Comment on above: Performed By: #### V BG #### [facility] ([id number]) [address] [place] [address] BASE,DEFICIT 26.0 MMOL/L High 0.0-2.0 [facility] Comment on above: Performed By: #### V BG #### [facility] ([id number]) [address] [place] [address] Body temperature 98.6 [degF] Normal 37.0 [facility] Comment on above: Performed By: #### V BG #### [facility] ([id number]) [address] [place] [address] HCO3 (Bld) [Moles/Vol] 4.5 mmol/L Low 20.0-24.0 [facility] Comment on above: Performed By: #### V BG #### [facility] ([id number]) [address] [place] [address] INSP. O2 CONC. 21 % Normal [facility] Comment on above: Performed By: #### V BG #### [facility] ([id number]) [address] [place] [address] Oxygen saturation in Blood 25.0 % Low >80.0 [facility] Comment on above: Performed By: #### V BG #### [facility] ([id number]) [address] [place] [address] OXYGEN SOURCE [employer] [facility] Comment on above: Performed By: #### V BG #### [facility] ([id number]) [address] [place] [address] PCO2, VENOUS 20.1 MMHG Low 35-50 [facility] Comment on above: Performed By: #### V BG #### [facility] ([id number]) [address] [place] [address] PH, VENOUS 6.956 Low 7.320-7.420 [facility] Comment on above: Performed By: #### V BG #### [facility] ([id number]) [address] [place] [address] PO2, VENOUS 27 MMHG Low 30-50 [facility] Comment on above: Performed By: #### V BG #### [facility] ([id number]) [address] [place] [address] SAMPLE SITE N/A Normal [facility] Comment on above: Performed By: #### V BG #### [facility] ([id number]) [address] [place] [address] SAMPLE TYPE VENOUS Normal [facility] Comment on above: Performed By: #### V BG #### [facility] ([id number]) [address] [place] [address] C Bloodon 06-17-2023 C Blood No growth at 5 Days Normal [facility] Comment on above: Performed By: #### 6 [id number] ####[facility] (DEFAULT)[address] [place] [address] Coding Queryon 06-17-2023 Coding Query HIM CODING QUERY FORM Accurate coding and billing requires that the principal diagnosis, secondary diagnosis and procedures be supported by physician documentation and that this documentation be reflected in the discharge summary (if required for patient type). Any time this information is not complete, it is the director credit risk?s responsibility to query the physician. Based on medical record review, the following issues have been identified: (XX ) Please complete ED Note. Thank you for your cooperation and timely attention to this matter. Magnolia griffin [Electronically Signed on: 06/26/2023 17:47 EST] ____ Jaun Uribe MD [Verified on: 06/26/2023 17:47 EST] ____ Jaun Uribe MD [Transcribed on: 06/17/2023 15:38 EST] [facility] Provider Orderson 06-17-2023 Provider Orders [id number]#1.00[facility] Consent Formson 06-16-2023 Consent Forms [id number] Tele[facility] Strips [id number][facility] Hepatitis LCon 023 HBsAg Screen LC Negative Invalid Interpretation Code Negative [facility] Comment on above: Performed By: #### 2 [id number] ####[facility] (DEFAULT)[address] [place] [address] Hep A Ab, IgM LC Negative Invalid Interpretation Code Negative [facility] Comment on above: Performed By: #### 1 [id number] ####[facility] (DEFAULT)[address] [place] [address] Hep B Core Ab, IgM LC Negative Invalid Interpretation Code Negative [facility] Comment on above: Performed By: #### 0 [id number] ####[facility] (DEFAULT)[address] [place] [address] Hepatitis C Ab LC Non-Reactive Invalid Interpretation Code Non Reactive [facility] Comment on above: Result Comment: Perf ormed At: [employer] [id number] Vilma Ho PhD Ph:[phone] Performed By: #### 3 [id number] ####[facility] (DEFAULT)[address] [place] [address] RPR, Rfx Qn RPR/Confirm TP L Con 06-14-2023 RPR LC Non-Reactive Invalid Interpretation Code Non Reactive [facility] Comment on above: Result Comment: Perf ormed At: [facility] [employer] [facility] [id number] [place], [place] [id number] Vilma Ho PhD Ph:[phone] Performed By: #### 5 [id number], [id number] #### [facility] (DEFAULT) [address] [place] [address] .Auto Diff 06-13-2023 Auto Rice % 7 % Normal 07-11 [facility] Comment on above: Performed By: #### 7 067228, [id number], 89554921, 6696002, 8125790, 8274692 ####[facility] (DEFAULT)[address] [place] [address] Baso Abs# 0.0 x10 Normal 0.0-0.2 [facility] Comment on above: Performed By: #### 7 796668, [id number], 23023761, 1159650, 2396101, 1832451 ####[facility] (DEFAULT)[address] [place] [address] Basophils/100 WBC (Bld) 0.4 % Normal 0.2-2.0 [facility] Comment on above: Performed By: #### 7 048734, 5859731133, 44558873, 3840282, 6425304, 0492732 ####[facility] (DEFAULT)[address] [place] [address] Eos Abs# 0.2 x10 Normal 0.0-0.4 [facility] Comment on above: Performed By: #### 7 865502, 6706929995, 04773995, 7235039, 5033912, 6782308 ####[facility] (DEFAULT)[address] [place] [address] Eosinophils/100 WBC (Bld) 2.2 % Normal 0.9-4.0 [facility] Comment on above: Performed By: #### 7 959805, 8826188387, 74550887, 7539029, 1626250, 9711413 ####[facility] (DEFAULT)[address] [place] [address] Lymph Abs# 2.7 x10 Normal 1.3-2.9 [facility] Comment on above: Performed By: #### 7 447249, 7829731607, 78262699, 9700930, 3979708, 2311831 ####[facility] (DEFAULT)[address] [place] [address] Lymphocytes/100 WBC (Bld) 36 % Normal 14-48 [facility] Comment on above: Performed By: #### 7 921837, 0966226878, 18737359, 4855670, 6365626, 5217445 ####[facility] (DEFAULT)[address] [place] [address] Rice Abs# 0.5 x10 Normal 0.0-0.8 [facility] Comment on above: Performed By: #### 7 337933, 9347303600, 88619363, 1427598, 9286501, 7535409 ####[facility] (DEFAULT)[address] [place] [address] Neut Abs# 4.0 x10 Normal 1.5-9.2 [facility] Comment on above: Performed By: #### 7 304750, 6942873277, 29335434, 0479353, 4368405, 5189818 ####[facility] (DEFAULT)[address] [place] [address] Neutrophils/100 WBC (Bld) 54 % Normal 44-88 [facility] Comment on above: Performed By: #### 7 672505, 3669955299, 03119522, 1949906, 9860870, 8811763 ####[facility] (DEFAULT)[address] [place] [address] [facility] 06-13-2023 eGFR AA >60 Invalid Interpretation Code [facility] Comment on above: Order Comment: While on Insulin Drip Performed By: #### 2 702985, [id number], 1893847 ####[facility] (DEFAULT)[address] [place] [address] eGFR Non AA >60 Invalid Interpretation Code [facility] Comment on above: Order Comment: While on Insulin Drip Performed By: #### 2 574085, [id number], 2510369 ####[facility] (DEFAULT)[address] [place] [address] Anion gap [Moles/Vol] 8.7 mmol/L Normal 5.0-19.0 [facility] Comment on above: Order Comment: While on Insulin Drip Performed By: #### 2 023438, 0915360371, 1820420 ####[facility] (DEFAULT)[address] [place] [address] Calcium [Mass/Vol] 8.0 mg/dL Low 8.9-10.3 [facility] Comment on above: Order Comment: While on Insulin Drip Performed By: #### 2 209328, [id number], 4108279 ####[facility] (DEFAULT)[address] [place] [address] Chloride [Moles/Vol] 106 mmol/L Normal 101-111 [facility] Comment on above: Order Comment: While on Insulin Drip Performed By: #### 2 475145, 0110685250, 4389090 ####[facility] (DEFAULT)[address] [place] [address] CO2 [Moles/Vol] 21 mmol/L Normal 21-32 [facility] Comment on above: Order Comment: While on Insulin Drip Performed By: #### 2 941964, 1856143096, 5146231 ####[facility] (DEFAULT)[address] [place] [address] Creatinine [Mass/Vol] 0.58 mg/dL Low 0.60-1.30 [facility] Comment on above: Order Comment: While on Insulin Drip Performed By: #### 2 777192, 0688081546, 2904886 ####[facility] (DEFAULT)[address] [place] [address] Glucose [Mass/Vol] 388.0 mg/dL High 74.0-118.0 [facility] Comment on above: Order Comment: While on Insulin Drip Performed By: #### 2 657685, 3389348533, 3664122 ####[facility] (DEFAULT)[address] [place] [address] Osmolality 280 mOsm/L Invalid Interpretation Code [facility] Comment on above: Order Comment: While on Insulin Drip Performed By: #### 2 032499, 9353409291, 1704627 ####[facility] (DEFAULT)[address] [place] [address] Potassium [Moles/Vol] 3.7 mmol/L Normal 3.6-5.1 [facility] Comment on above: Order Comment: While on Insulin Drip Performed By: #### 2 611776, 2463383316, 3138360 ####[facility] (DEFAULT)[address] [place] [address] Sodium [Moles/Vol] 132.0 mmol/L Low 136.0-144.0 [facility] Comment on above: Order Comment: While on Insulin Drip Performed By: #### 2 994331, 3551753038, 4030640 ####[facility] (DEFAULT)[address] [place] [address] Urea nitrogen [Mass/Vol] 12 mg/dL Normal 8-26 [facility] Comment on above: Order Comment: While on Insulin Drip Performed By: #### 2 051765, 0075320097, 9232290 ####[facility] (DEFAULT)[address] [place] [address] Urea nitrogen/Creatinine [Mass ratio] 20.6 mg/mg High 4.6-16.2 [facility] Comment on above: Order Comment: While on Insulin Drip Performed By: #### 2 900729, 4047098835, 8988131 ####[facility] (DEFAULT)[address] [place] [address] CBC w/ Auto Diffon 3 Erythrocyte distribution width (RBC) [Ratio] 15.1 % High 11.5-15.0 [facility] Comment on above: Performed By: #### 7 100444, 9300188031, 51594190, 6197638, 2384611, 9304859 ####[facility] (DEFAULT)[address] [place] [address] Hematocrit (Bld) [Volume fraction] 32.3 % Low 33.7-40.4 [facility] Comment on above: Performed By: #### 7 342379, 2539215417, 36757882, 3890577, 5681206, 3943224 ####[facility] (DEFAULT)[address] [place] [address] Hemoglobin (Bld) [Mass/Vol] 10.6 g/dL Low 11.3-15. 9 [facility] Comment on above: Performed By: #### 7 086652, 3684074737, 33657679, 7936881, 1023569, 2054109 ####[facility] (DEFAULT)[address] [place] [address] Man Diff? Auto Invalid Interpretation Code [facility] Comment on above: Performed By: #### 7 231492, 8365697713, 93341493, 6091117, 6224391, 4373064 ####[facility] (DEFAULT)[address] [place] [address] MCH (RBC) [Entitic mass] 26 pg Normal 24-34 [facility] Comment on above: Performed By: #### 7 667986, 5640014676, 70970593, 8106947, 9405494, 8303017 ####[facility] (DEFAULT)[address] [place] [address] MCHC (RBC) [Mass/Vol] 33 g/dL Normal 26-37 [facility] Comment on above: Performed By: #### 7 983809, 0749424882, 22237087, 3449994, 6921878, 8908025 ####[facility] (DEFAULT)[address] [place] [address]24 MCV (RBC) [Entitic vol] 78 fL Low 81-100 [facility] Comment on above: Performed By: #### 7 539376, 6188550923, 08001302, 1676134, 4153054, 7978625 ####[facility] (DEFAULT)[address] [place] [address] Platelet 320 x10 Normal 138-427 [facility] Comment on above: Performed By: #### 7 846196, 5528893605, 58030057, 3623218, 3808373, 1544933 ####[facility] (DEFAULT)[address] [place] [address] Platelet mean volume (Bld) [Entitic vol] 7.2 fL Normal 6.3-10.2 [facility] Comment on above: Performed By: #### 7 627928, 8282757912, 58495275, 9184971, 2711154, 7426178 ####[facility] (DEFAULT)[address] [place] [address] RBC 4.14 x10 Normal 3.70-5.30 [facility] Comment on above: Performed By: #### 7 544876, 6495959661, 84871014, 3833275, 1331607, 9539051 ####[facility] (DEFAULT)[address] [place] [address] WBC 7.4 x10 Normal 3.5-10.5 [facility] Comment on above: Performed By: #### 7 893798, 2673105779, 65808728, 1081432, 9134466, 2693059 ####[facility] (DEFAULT)[address] [place] [address] Standardon 06-13-2023 eGFR Non AA >60 Invalid Interpretation Code [facility] Comment on above: Performed By: #### 7 566177, 0044226387, 38605554, 9009899, 0592831, 7255191 ####[facility] (DEFAULT)[address] [place] [address] eGFR AA >60 Invalid Interpretation Code [facility] Comment on above: Performed By: #### 7 827775, 7875993516, 24067612, 8389134, 7043190, 4192979 ####[facility] (DEFAULT)[address] [place] [address] Albumin [Mass/Vol] 3.1 g/dL Low 3.5-5.0 [facility] Comment on above: Performed By: #### 7 582388, 9554010760, 45221353, 6676751, 2984197, 6453465 ####[facility] (DEFAULT)[address] [place] [address] Albumin/Globulin [Mass ratio] 1.1 {ratio} Low 1.4-2.6 [facility] Comment on above: Performed By: #### 7 926165, 2196375048, 91215041, 9121346, 6194493, 8502596 ####[facility] (DEFAULT)[address] [place] [address] Alk Phos 59 IU/L Normal 32-91 [facility] Comment on above: Performed By: #### 7 190800, 2284187475, 77564671, 6210486, 7732725, 5897760 ####[facility] (DEFAULT)[address] [place] [address] ALT [Catalytic activity/Vol] 17.0 U/L Normal 14.0-54.0 [facility] Comment on above: Performed By: #### 7 041081, 7336419287, 93253130, 4103563, 4416879, 9633278 ####[facility] (DEFAULT)[address] [place] [address] Anion gap [Moles/Vol] 7.7 mmol/L Normal 5.0-19.0 [facility] Comment on above: Performed By: #### 7 467720, 2380318829, 40245654, 7290831, 6885472, 7582155 ####[facility] (DEFAULT)[address] [place] [address] AST [Catalytic activity/Vol] 15 U/L Normal 15-41 [facility] Comment on above: Performed By: #### 7 933466, 5556857909, 62711623, 6322590, 6145459, 6646488 ####[facility] (DEFAULT)[address] [place] [address] Bili Total 0.4 mg/dL Normal 0.3-1.2 [facility] Comment on above: Performed By: #### 7 344091, 9979072090, 10457034, 4032264, 3536058, 8120218 ####[facility] (DEFAULT)[address] [place] [address] Calcium [Mass/Vol] 8.1 mg/dL Low 8.9-10.3 [facility] Comment on above: Performed By: #### 7 505278, 1584724308, 96474237, 6228149, 7642869, 5214054 ####[facility] (DEFAULT)[address] [place] [address] Chloride [Moles/Vol] 106 mmol/L Normal 101-111 [facility] Comment on above: Performed By: #### 7 301717, 7877808728, 77401647, 9047080, 3918616, 6597762 ####[facility] (DEFAULT)[address] [place] [address]653 CO2 [Moles/Vol] 24 mmol/L Normal 21-32 [facility] Comment on above: Performed By: #### 7 560078, 4437439977, 63876273, 7442015, 9478232, 3397105 ####[facility] (DEFAULT)[address] [place] [address] Creatinine [Mass/Vol] 0.49 mg/dL Low 0.60-1.30 [facility] Comment on above: Performed By: #### 7 548917, 3833534248, 31624037, 9489739, 5815028, 2307921 ####[facility] (DEFAULT)[address] [place] [address]7743 Globulin (S) [Mass/Vol] 2.7 g/dL Normal 1.5-4.3 [facility] Comment on above: Performed By: #### 7 257698, 0650584574, 54317017, 6538128, 7958143, 0129751 ####[facility] (DEFAULT)[address] [place] [address] Glucose [Mass/Vol] 128.0 mg/dL High 74.0-118.0 [facility] Comment on above: Performed By: #### 7 754129, 3813152879, 25491413, 8415785, 8045914, 7287135 ####[facility] (DEFAULT)[address] [place] [address] Osmolality 269 mOsm/L Invalid Interpretation Code [facility] Comment on above: Performed By: #### 7 233302, 5356084244, 92022302, 8826887, 3265065, 2117944 ####[facility] (DEFAULT)[address] [place] [address] Potassium [Moles/Vol] 3.7 mmol/L Normal 3.6-5.1 [facility] Comment on above: Performed By: #### 7 782156, 1668062739, 88794756, 2556947, 5862372, 2281023 ####[facility] (DEFAULT)[address] [place] [address] 58267 Protein [Mass/Vol] 5.8 g/dL Low 6.5-8.1 [facility] Comment on above: Performed By: #### 7 612075, 8205464852, 95192336, 9072919, 5492646, 9818610 ####[facility] (DEFAULT)[address] [place] [address] 47047 Sodium [Moles/Vol] 134.0 mmol/L Low 136.0-144.0 [facility] Comment on above: Performed By: #### 7 717560, 3133303339, [id number], [id number], [id number], [id number] ####[facility] (DEFAULT)[address] [place] [address] [id number] Urea nitrogen [Mass/Vol] 11 mg/dL Normal 8-26 [facility] Comment on above: Performed By: #### [id number], [id number], [id number], [id number], [id number], [id number] ####[facility] (DEFAULT)[address] [place] [address] [id number] Urea nitrogen/Creatinine [Mass ratio] 22.4 mg/mg High 4.6-16.2 [facility] Comment on above: Performed By: #### 7 [id number], [id number], [id number], [id number], [id number], [id number] ####[facility] (DEFAULT)[address] [place] [address] 63463 Case Management Noteon 06-13 Case Management Note [id number]#1.00OTGTIFF Normal [facility] Consent Formson 06-13-2023 Consent Forms [id number]#1.00OTGTIFF Normal [facility] Magnesiumon 06-13-2023 Magnesium [Mass/Vol] 1.87 mg/dL Normal 1.80-2.50 [facility] Comment on above: Performed By: #### 7 [id number], [id number], [id number], 5871468, 5949188, [id number] ####[facility] (DEFAULT)[address] [place] [address] Magnesium [Mass/Vol] 1.84 mg/dL Normal 1.80-2.50 [facility] Comment on above: Order Comment: While on Insulin Drip Performed By: #### 2 [id number], [id number], [id number] ####[facility] (DEFAULT)[address] [place] [address] Nutrition Noteon 06-13-2023 Nutrition Note met with [...] in her van; just recently released from long term - showed me her two ankle bracelets [...] (insulin pump); note current A1c 15.9%patient sees housekeeping department worker in [place] monthly (when she is able); encouraged patient to call endo's office to make another appt - also to call customer service at [facility] to get another remote so she can use her pump; ? 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 ts Pt left AMA. Normal [facility] POCT Glucose Levelon 023 Glucose, POC See Comment Invalid Interpretation Code 74118 [facility] Comment on above: Result Comment: Dupl icate order, remove 1 diane Rodarte in ICU 06/13/2023 08:10:39 EST JW Performed By: #### 4 [id number] ####[facility] (DEFAULT)[address] [place] [address] 17106 Glucose [Mass/Vol] 191 mg/dL High 74-118 [facility] Comment on above: Performed By: #### 4 [id number] ####[facility] (DEFAULT)[address] [place] [address] 98341 Glucose [Mass/Vol] 129 mg/dL High 74-118 [facility] Comment on above: Performed By: #### 4 [id number] #### [facility] (DEFAULT) [address] [place] [address] 87950 Glucose [Mass/Vol] 119 mg/dL High 74-118 [facility] Comment on above: Performed By: #### 4 [id number] #### [facility] (DEFAULT) [address] [place] [address] 15958 Glucose [Mass/Vol] 193 mg/dL High 74-118 [facility] Comment on above: Performed By: #### 4 [id number] ####[facility] (DEFAULT)[address] [place] [address] 78736 Glucose [Mass/Vol] 294 mg/dL High 74-118 [facility] Comment on above: Performed By: #### 4 [id number] ####[facility] (DEFAULT)[address] [place] [address] 07934 Glucose [Mass/Vol] 362 mg/dL High 74-118 [facility] Comment on above: Performed By: #### 4 [id number] #### [facility] (DEFAULT) [address] [place] [address] 85589 Phoson 06-13-2023 Phosphate [Mass/Vol] 2.3 mg/dL Low 2.5-4.6 [facility] Comment on above: Performed By: #### 7 [id number], [id number], [id number], [id number], 2040301, [id number] ####[facility] (DEFAULT)[address] [place] [address] 61820 Phosphate [Mass/Vol] 2.2 mg/dL Low 2.5-4.6 [facility] Comment on above: Performed By: #### 2 726190, [id number], [id number] ####[facility] (DEFAULT)[address] [place] [address] 39615 Progress Note - Nurseon 05-30 Progress Note - Nurse Patient left AMA. Patient wanted to leave today. Dr. Payne wanted to keep her til tomorrow. She is out of her medications. [Electronically Signed on: 06/13/2023 10:30 EST] ____ Aster Bernal RN [Verified on: 06/13/2023 10:30 EST] ____ Aster Bernal RN [facility] Progress Note - Nurse Patient called Anusha the dietitian about getting more food. Anusha showed up to her room and discussed what she needs to do to control her blood sugars. They made a plan of her meals and what she should eat and what she needs to avoid. [Electronically Signed on: 06/13/2023 10:32 EST] ____ Aster Bernal RN [Verified on: 06/13/2023 10:32 EST] ____ Aster Bernal RN Normal [facility] Trigon 06-13-2023 Triglyceride [Mass/Vol] 177.0 mg/dL High 0.0-150.0 [facility] Comment on above: Performed By: #### 7 [id number], [id number], [id number], 6221324, 0790213, [id number] ####[facility] (DEFAULT)[address] [place] [address] .Auto Diff 06-12-2023 Auto Rice % 2 % Normal 07-11 [facility] Comment on above: Performed By: #### 5 [id number], [id number] #### [facility] (DEFAULT) [address] [place] [address] Baso Abs# 0.1 x10 Normal 0.0-0.2 [facility] Comment on above: Performed By: #### 5 [id number], [id number] #### [facility] (DEFAULT) [address] [place] [address] Basophils/100 WBC (Bld) 1.1 % Normal 0.2-2.0 [facility] Comment on above: Performed By: #### 5 [id number], [id number] #### [facility] (DEFAULT) [address] [place] [address] Eos Abs# 0.0 x10 Normal 0.0-0.4 [facility] Comment on above: Performed By: #### 5 [id number], [id number] #### [facility] (DEFAULT) [address] [place] [address] Eosinophils/100 WBC (Bld) 0.6 % Low 0.9-4.0 [facility] Comment on above: Performed By: #### 5 [id number], [id number] #### [facility] (DEFAULT) [address] [place] [address] Lymph Abs# 0.9 x10 Low 1.3-2.9 [facility] Comment on above: Performed By: #### 5 [id number], [id number] #### [facility] (DEFAULT) [address] [place] [address] 06165 Lymphocytes/100 WBC (Bld) 14 % Normal 14-48 [facility] Comment on above: Performed By: #### 5 [id number], [id number] #### [facility] (DEFAULT) [address] [place] [address] Rice Abs# 0.2 x10 Normal 0.0-0.8 [facility] Comment on above: Performed By: #### 5 [id number], [id number] #### [facility] (DEFAULT) [address] [place] [address] Neut Abs# 5.6 x10 Normal 1.5-9.2 [facility] Comment on above: Performed By: #### 5 [id number], [id number] #### [facility] (DEFAULT) [address] [place] [address] 50911 Neutrophils/100 WBC (Bld) 82 % Normal 44-88 [facility] Comment on above: Performed By: #### 5 [id number], [id number] #### [facility] (DEFAULT) [address] [place] [address] Arterial Blood Gas Standardo n 06-12-2023 Base Excess Art -17.3 mmol/L Low -3.3-2.3 [facility] Comment on above: Performed By: #### 5 [id number], [id number] #### [facility] (DEFAULT) [address] [place] [address] 34941 Breakpoint Hemo Normal [facility] Comment on above: Performed By: #### 5 [id number], [id number] #### [facility] (DEFAULT) [address] [place] [address] 87056 Device Room Air Normal [facility] Comment on above: Performed By: #### 5 1404445, [id number] #### [facility] (DEFAULT) [address] [place] [address] 85237 Fio2 Art 21.0 % Normal 21.0-100.0 [facility] Comment on above: Performed By: #### 5 [id number], [id number] #### [facility] (DEFAULT) [address] [place] [address] 50002 HCO3 (Bld) [Moles/Vol] 9.4 mmol/L Low 22.0-27.0 [facility] Comment on above: Performed By: #### 5 [id number], [id number] #### [facility] (DEFAULT) [address] [place] [address] 47609 Oxygen saturation in Blood 97.8 % Normal 95.0-100. 0 [facility] Comment on above: Performed By: #### 5 [id number], [id number] #### [facility] (DEFAULT) [address] [place] [address] 04874 pCO2 Art 25 mmHg Low 34-44 [facility] Comment on above: Performed By: #### 5 7072479, [id number] #### [facility] (DEFAULT) [address] [place] [address] 61053 pH Art 7.18 Critically abnormal 7.37-7.44 [facility] Comment on above: Result Comment: Resu lts handed to Dr Uribe by on 06/12/2023 @ 1302, RBD Performed By: #### 5 [id number], [id number] #### [facility] (DEFAULT) [address] [place] [address] 50341 pO2 Art 118 mmHg High 75-100 [facility] Comment on above: Performed By: #### 5 [id number], [id number] #### [facility] (DEFAULT) [address] [place] [address] 46315 Puncture Site Right Brachial Normal [facility] Comment on above: Performed By: #### 5 [id number], [id number] #### [facility] (DEFAULT) [address] [place] [address] 37774 Rate: 20 Invalid Interpretation Code [facility] Comment on above: Performed By: #### 5 [id number], [id number] #### [facility] (DEFAULT) [address] [place] [address] 02886 [facility] Standardon 06-12-2023 eGFR AA >60 Invalid Interpretation Code [facility] Comment on above: Order Comment: While on Insulin Drip Performed By: #### 2 [id number], [id number], [id number] ####[facility] (DEFAULT)[address] [place] [address] 26873 eGFR Non AA >60 Invalid Interpretation Code [facility] Comment on above: Order Comment: While on Insulin Drip Performed By: #### 2 300769, [id number], 7227772 ####[facility] (DEFAULT)[address] [place] [address] 94471 Anion gap [Moles/Vol] 1.6 mmol/L Low 5.0-19.0 [facility] Comment on above: Order Comment: While on Insulin Drip Performed By: #### 2 248935, [id number], [id number] ####[facility] (DEFAULT)[address] [place] [address] 09868 Calcium [Mass/Vol] 7.6 mg/dL Low 8.9-10.3 [facility] Comment on above: Order Comment: While on Insulin Drip Performed By: #### 2 680314, [id number], [id number] ####[facility] (DEFAULT)[address] [place] [address] 87391 Chloride [Moles/Vol] 113 mmol/L High 101-111 [facility] Comment on above: Order Comment: While on Insulin Drip Performed By: #### 2 811980, [id number], 1410112 ####[facility] (DEFAULT)[address] [place] [address] 02612 CO2 [Moles/Vol] 23 mmol/L Normal 21-32 [facility] Comment on above: Order Comment: While on Insulin Drip Performed By: #### 2 222192, [id number], [id number] ####[facility] (DEFAULT)[address] [place] [address] 15461 Creatinine [Mass/Vol] 0.57 mg/dL Low 0.60-1.30 [facility] Comment on above: Order Comment: While on Insulin Drip Performed By: #### 2 825012, [id number], 3434301 ####[facility] (DEFAULT)[address] [place] [address] 54229 Glucose [Mass/Vol] 234.0 mg/dL High 74.0-118.0 [facility] Comment on above: Order Comment: While on Insulin Drip Performed By: #### 2 273358, [id number], 2956810 ####[facility] (DEFAULT)[address] [place] [address] 58518 Osmolality 275 mOsm/L Invalid Interpretation Code [facility] Comment on above: Order Comment: While on Insulin Drip Performed By: #### 2 190471, [id number], [id number] ####[facility] (DEFAULT)[address] [place] [address] 88058 Potassium [Moles/Vol] 3.6 mmol/L Normal 3.6-5.1 [facility] Comment on above: Order Comment: While on Insulin Drip Performed By: #### 2 696767, [id number], 6764596 ####[facility] (DEFAULT)[address] [place] [address] 01857 Sodium [Moles/Vol] 134.0 mmol/L Low 136.0-144.0 [facility] Comment on above: Order Comment: While on Insulin Drip Performed By: #### 2 260744, [id number], [id number] ####[facility] (DEFAULT)[address] [place] [address] 89786 Urea nitrogen [Mass/Vol] 11 mg/dL Normal 8-26 [facility] Comment on above: Order Comment: While on Insulin Drip Performed By: #### 2 150348, [id number], [id number] ####[facility] (DEFAULT)[address] [place] [address] 12594 Urea nitrogen/Creatinine [Mass ratio] 19.2 mg/mg High 4.6-16.2 [facility] Comment on above: Order Comment: While on Insulin Drip Performed By: #### 2 207688, [id number], 5153683 ####[facility] (DEFAULT)[address] [place] [address] eGFR Non AA >60 Invalid Interpretation Code [facility] Comment on above: Order Comment: While on Insulin Drip Performed By: #### 1 [id number], 5571843, 4604848, ####[facility] (DEFAULT)[address] [place] [address] 61080 eGFR AA >60 Invalid Interpretation Code [facility] Comment on above: Order Comment: While on Insulin Drip Performed By: #### 1 [id number], 4569490, 0433401, ####[facility] (DEFAULT)[address] [place] [address] 21962 Anion gap [Moles/Vol] 7.9 mmol/L Normal 5.0-19.0 [facility] Comment on above: Order Comment: While on Insulin Drip Performed By: #### 1 [id number], 8293361, 1499317, ####[facility] (DEFAULT)[address] [place] [address] 98648 Calcium [Mass/Vol] 7.7 mg/dL Low 8.9-10.3 [facility] Comment on above: Order Comment: While on Insulin Drip Performed By: #### 1 [id number], 3057459, 6635591, ####[facility] (DEFAULT)[address] [place] [address] 03342 Chloride [Moles/Vol] 110 mmol/L Normal 101-111 [facility] Comment on above: Order Comment: While on Insulin Drip Performed By: #### 1 [id number], 3839082, 9213763, ####[facility] (DEFAULT)[address] [place] [address] 97150 CO2 [Moles/Vol] 19 mmol/L Low 21-32 [facility] Comment on above: Order Comment: While on Insulin Drip Performed By: #### 1 [id number], 0137672, 4430974, ####[facility] (DEFAULT)[address] [place] [address] 44821 Creatinine [Mass/Vol] 0.90 mg/dL Normal 0.60-1.30 [facility] Comment on above: Order Comment: While on Insulin Drip Performed By: #### 1 [id number], 4824948, 6669502, ####[facility] (DEFAULT)[address] [place] [address] 95689 Glucose [Mass/Vol] 361.0 mg/dL High 74.0-118.0 [facility] Comment on above: Order Comment: While on Insulin Drip Performed By: #### 1 [id number], 4489753, 8269317, ####[facility] (DEFAULT)[address] [place] [address] 18418 Osmolality 280 mOsm/L Invalid Interpretation Code [facility] Comment on above: Order Comment: While on Insulin Drip Performed By: #### 1 [id number], 7004506, 3216617, ####[facility] (DEFAULT)[address] [place] [address] 41141 Potassium [Moles/Vol] 3.9 mmol/L Normal 3.6-5.1 [facility] Comment on above: Order Comment: While on Insulin Drip Performed By: #### 1 [id number], [id number], , ####[facility] (DEFAULT)[address] [place] [address] 31253 Sodium [Moles/Vol] 133.0 mmol/L Low 136.0-144.0 [facility] Comment on above: Order Comment: While on Insulin Drip Performed By: #### 1 [id number], 8070096, 4353730, ####[facility] (DEFAULT)[address] [place] [address] 40794 Urea nitrogen [Mass/Vol] 11 mg/dL Normal 8-26 [facility] Comment on above: Order Comment: While on Insulin Drip Performed By: #### 1 [id number], 5555510, 7861121, ####[facility] (DEFAULT)[address] [place] [address] 79186 Urea nitrogen/Creatinine [Mass ratio] 12.2 mg/mg Normal 4.6-16.2 [facility] Comment on above: Order Comment: While on Insulin Drip Performed By: #### 1 [id number], 1600174, 9302944, [id number] ####[facility] (DEFAULT)[address] [place] [address] 29264 Breakpoint Chem Normal [facility] Comment on above: Performed By: #### 4 [id number] #### [facility] (DEFAULT) [address] [place] [address] 34466 eGFR Non AA >60 Invalid Interpretation Code [facility] Comment on above: Performed By: #### 4 [id number] #### [facility] (DEFAULT) [address] [place] [address] 48952 eGFR AA >60 Invalid Interpretation Code [facility] Comment on above: Performed By: #### 4 [id number] #### [facility] (DEFAULT) [address] [place] [address] 14186 Anion gap [Moles/Vol] 21.7 mmol/L High 5.0-19.0 [facility] Comment on above: Performed By: #### 4 [id number] #### [facility] (DEFAULT) [address] [place] [address] 79472 Osmolality 286 mOsm/L Invalid Interpretation Code [facility] Comment on above: Performed By: #### 4 [id number] #### [facility] (DEFAULT) [address] [place] [address] 54726 Urea nitrogen/Creatinine [Mass ratio] 15.0 mg/mg Normal 4.6-16.2 [facility] Comment on above: Performed By: #### 4 [id number] #### [facility] (DEFAULT) [address] [place] [address] 16660 Calcium [Mass/Vol] 8.6 mg/dL Low 8.9-10.3 [facility] Comment on above: Performed By: #### 4 [id number] #### [facility] (DEFAULT) [address] [place] [address] 51764 Chloride [Moles/Vol] 96 mmol/L Low 101-111 [facility] Comment on above: Performed By: #### 4 [id number] #### [facility] (DEFAULT) [address] [place] [address] 46032 CO2 [Moles/Vol] 12 mmol/L Low 21-32 [facility] Comment on above: Performed By: #### 4 [id number] #### [facility] (DEFAULT) [address] [place] [address] 79477 Creatinine [Mass/Vol] 0.93 mg/dL Normal 0.60-1.30 [facility] Comment on above: Performed By: #### 4 [id number] #### [facility] (DEFAULT) [address] [place] [address] 93451 Glucose [Mass/Vol] 708.0 mg/dL Critically abnormal 74.0-118.0 [facility] Comment on above: Result Comment: Crit ical result GLU 708 mg/dL called to and read back by jony sykes rn at 12-Jun-2023 13:52 by Frank. Performed By: #### 4 [id number] #### [facility] (DEFAULT) [address] [place] [address] 11116 Potassium [Moles/Vol] 4.7 mmol/L Normal 3.6-5.1 [facility] Comment on above: Performed By: #### 4 [id number] #### [facility] (DEFAULT) [address] [place] [address] 53795 Sodium [Moles/Vol] 125.0 mmol/L Low 136.0-144.0 [facility] Comment on above: Performed By: #### 4 [id number] #### [facility] (DEFAULT) [address] [place] [address] 76281 Urea nitrogen [Mass/Vol] 14 mg/dL Normal 8-26 [facility] Comment on above: Performed By: #### 4 [id number] #### [facility] (DEFAULT) [address] [place] [address] 45695 CBC w/ Auto Diffon 3 Erythrocyte distribution width (RBC) [Ratio] 15.0 % Normal 11.5-15.0 [facility] Comment on above: Performed By: #### 5 [id number], [id number] #### [facility] (DEFAULT) [address] [place] [address] 02024 Hematocrit (Bld) [Volume fraction] 39.0 % Normal 33.7-40.4 [facility] Comment on above: Performed By: #### 5 [id number], [id number] #### [facility] (DEFAULT) [address] [place] [address] 50858 Hemoglobin (Bld) [Mass/Vol] 12.3 g/dL Normal 11.3-15. 9 [facility] Comment on above: Performed By: #### 5 [id number], [id number] #### [facility] (DEFAULT) [address] [place] [address] 64987 Man Diff? Auto Invalid Interpretation Code [facility] Comment on above: Performed By: #### 5 [id number], [id number] #### [facility] (DEFAULT) [address] [place] [address] 23912 MCH (RBC) [Entitic mass] 26 pg Normal 24-34 [facility] Comment on above: Performed By: #### 5 [id number], [id number] #### [facility] (DEFAULT) [address] [place] [address] 93385 MCHC (RBC) [Mass/Vol] 32 g/dL Normal 26-37 [facility] Comment on above: Performed By: #### 5 [id number], [id number] #### [facility] (DEFAULT) [address] [place] [address] 78934 MCV (RBC) [Entitic vol] 82 fL Normal 81-100 [facility] Comment on above: Performed By: #### 5 [id number], [id number] #### [facility] (DEFAULT) [address] [place] [address] 89172 Platelet 393 x10 Normal 138-427 [facility] Comment on above: Performed By: #### 5 [id number], [id number] #### [facility] (DEFAULT) [address] [place] [address] 87999 Platelet mean volume (Bld) [Entitic vol] 7.9 fL Normal 6.3-10.2 [facility] Comment on above: Performed By: #### 5 [id number], [id number] #### [facility] (DEFAULT) [address] [place] [address] RBC 4.73 x10 Normal 3.70-5.30 [facility] Comment on above: Performed By: #### 5 [id number], [id number] #### [facility] (DEFAULT) [address] [place] [address] 13145 WBC 6.9 x10 Normal 3.5-10.5 [facility] Comment on above: Performed By: #### 5 [id number], [id number] #### [facility] (DEFAULT) [address] [place] [address] 52142 ED Clinical Summaryon 2022 ED Clinical Summary [facility] - Emergency Department [address] [place] [address] 16464 ED Clinical Summary PERSON INFORMATION Name: DOUGLAS CORDOVA Age: 28 Years Sex: FEMALE : 1995 MRN: Acct#: Visit Reason: Increased blood sugar; Vomiting; DKA Arrival: 06/12/2023 12:23:19 Discharge: LOS: 000 03:18 Check In: 06/12/2023 12:23:19 Checkout: 15:41:26 Address: [address] [address] PCP: ARCADIO IGLESIAS PROVIDER INFORMATION Provider Role [...] DIAGNOSIS: 1:Diabetic ketoacidosis Patient Understands: Yes - Patient/family/car egiver verbalizes understanding of instructions given Comment: [facility] ED Patient Education Noteon 06-12-2023 ED Patient Education Note Education Materials [facility] ED Patient Summaryon 023 ED Patient Summary [facility] - Emergency Department [address] [place] [address] PATIENT DISCHARGE INSTRUCTIONS Patient Information Name: DOUGLAS CORDOVA Age: 28 Years Date of : 1995 Reason For Visit: Increased blood sugar; Vomiting; DKA Arrival Time: 06/12/2023 12:23:19 Primary Care Physician: ARCADIO GILESIAS Attending Physician: Maxi Payne MD Comment: Visit Diagnosis: Diagnoses This Visit Diabetic ketoacidosis (E11.10) Increased blood sugar ([id number] 3) Vomiting ([id number] D) The Pharmacy at [facility] is open Friday through Friday [...] problems; contact the [facility] 20/01 Crisis Hotline -Text [id number] bc [phone]. If you received any narcotics, sedation, or [...] treatment you received today in the [facility] Emergency Department were for an urgent problem and are not intended as complete care. It is important for you to follow up with a doctor, nurse practitioner, or physician?s chemist assistant for ongoing care. If your symptoms [...] so we can reach you if necessary. [facility] Emergency Department has provided you with a complete list of medications post discharge. Please inform your napper fixer/provider of your visit and for further instruction on these medications. Any specific questions regarding your chronic medications and dosages should be discussed with your primary care physician(s) and/or pharmacist. Medications to Continue That Have Not Changed Other Medications amphetamine-dextro amphetamine (amphetamine-dextr oamphetamine 30 mg oral capsule, extended release) 1 cap(s) Oral (given by mouth) every day. carisoprodol (carisoprodol 350 mg oral tablet) 1 tab(s) Oral (given by mouth) 3 times a day. Durable Medical Equipment for Prescription (OMNIPOD DASH [...] NO Flui (more content not included)... Normal [facility] Extra [facility] 06-12-2023 Tube Collected Yes Invalid Interpretation Code [facility] Comment on above: Performed By: #### 5 [id number] #### [facility] (DEFAULT) [address] [place] [address] 44472 Extra [facility] 06-12-2023 Tube Collected Yes Invalid Interpretation Code [facility] Comment on above: Performed By: #### 1 [id number], [id number] ####[facility] (DEFAULT)[address] [place] [address] 17291 Hepatic Function Panel Stand formerly [facility] 06-12-2023 Albumin/Globulin [Mass ratio] 1.2 {ratio} Low 1.4-2.6 [facility] Comment on above: Performed By: #### 4 [id number] #### [facility] (DEFAULT) [address] [place] [address] 61776 Bili Indirect 2.1 mg/dL High 0.2-0.8 [facility] Comment on above: Performed By: #### 4 [id number] #### [facility] (DEFAULT) [address] [place] [address] 25320 Globulin (S) [Mass/Vol] 3.6 g/dL Normal 1.5-4.3 [facility] Comment on above: Performed By: #### 4 [id number] #### [facility] (DEFAULT) [address] [place] [address] 47149 Albumin [Mass/Vol] 4.6 g/dL Normal 3.5-5.0 [facility] Comment on above: Performed By: #### 4 [id number] #### [facility] (DEFAULT) [address] [place] [address] 97359 Alk Phos 90 IU/L Normal 32-91 [facility] Comment on above: Performed By: #### 4 [id number] #### [facility] (DEFAULT) [address] [place] [address] 66139 ALT [Catalytic activity/Vol] 27.0 U/L Normal 14.0-54.0 [facility] Comment on above: Performed By: #### 4 [id number] #### [facility] (DEFAULT) [address] [place] [address] 26250 AST [Catalytic activity/Vol] 17 U/L Normal 15-41 [facility] Comment on above: Performed By: #### 4 [id number] #### [facility] (DEFAULT) [address] [place] [address] 99891 Bili Direct 0.10 mg/dL Normal 0.10-0.50 [facility] Comment on above: Performed By: #### 4 [id number] #### [facility] (DEFAULT) [address] [place] [address] 25506 Bili Total 2.2 mg/dL High 0.3-1.2 [facility] Comment on above: Performed By: #### 4 [id number] #### [facility] (DEFAULT) [address] [place] [address] 94436 Protein [Mass/Vol] 8.2 g/dL High 6.5-8.1 [facility] Comment on above: Performed By: #### 4 [id number] #### [facility] (DEFAULT) [address] [place] [address] 59635 HgbA1c Standardon 06-12-2023 .Hb 13.4 Invalid Interpretation Code [facility] Comment on above: Performed By: #### 1 [id number] ####[facility] (DEFAULT)[address] [place] [address] 44210 .Hgb A1c 2.01 g/dL Invalid Interpretation Code [facility] Comment on above: Performed By: #### 1 [id number] ####[facility] (DEFAULT)[address] [place] [address] 31432 Glucose [Mass/Vol] 407 mg/dL Invalid Interpretation Code [facility] Comment on above: Performed By: #### 1 [id number] ####[facility] (DEFAULT)[address] [place] [address] 31186 HbA1c (Bld) [Mass fraction] 15.8 % High 4.6-6.2 [facility] Comment on above: Performed By: #### 1 [id number] ####[facility] (DEFAULT)[address] [place] [address] 55677 Ketone Serumon 06-12-2023 Ketone Serum Negative Normal Negative [facility] Comment on above: Performed By: #### 6 [id number] #### [facility] (DEFAULT) [address] [place] [address] 14329 Lactic Acidon 06-12-2023 Lactic Acid 9.7 mg/dL Normal 4.5-19.8 [facility] Comment on above: Performed By: #### 2 [id number] ####[facility] (DEFAULT)[address] [place] [address] 69225 Lipid Panel Standard, Non-Fa stingon 06-12-2023 Cholesterol [Mass/Vol] 285.0 mg/dL High 66.0-200.0 [facility] Comment on above: Performed By: #### 4 [id number] #### [facility] (DEFAULT) [address] [place] [address] 41915 Cholesterol in HDL [Mass/Vol] 43 mg/dL Normal 40-71 [facility] Comment on above: Performed By: #### 4 [id number] #### [facility] (DEFAULT) [address] [place] [address] 25360 Cholesterol.total/Cholester ol in HDL [Mass ratio] 6.6 {ratio} High 0.0-4.5 [facility] Comment on above: Performed By: #### 4 [id number] #### [facility] (DEFAULT) [address] [place] [address] 73788 LDL See Comment Invalid Interpretation Code 1-100 [facility] Comment on above: Performed By: #### 4 [id number] #### [facility] (DEFAULT) [address] [place] [address] 42503 Triglyceride [Mass/Vol] 855.0 mg/dL High 0.0-150.0 [facility] Comment on above: Performed By: #### 4 [id number] #### [facility] (DEFAULT) [address] [place] [address] 74393 VLDL. See Comment2 Invalid Interpretation Code 5-40 [facility] Comment on above: Performed By: #### 4 [id number] #### [facility] (DEFAULT) [address] [place] [address] 38931 Magnesiumon 06-12-2023 Magnesium [Mass/Vol] 2.02 mg/dL Normal 1.80-2.50 [facility] Comment on above: Order Comment: While on Insulin Drip Performed By: #### 2 [id number], [id number] ####[facility] (DEFAULT)[address] [place] [address] 01727 Magnesium [Mass/Vol] 1.91 mg/dL Normal 1.80-2.50 [facility] Comment on above: Order Comment: While on Insulin Drip Performed By: #### 1 [id number], [id number], [id number] ####[facility] (DEFAULT)[address] [place] [address] 97622 POCT Glucose Levelon 023 Glucose [Mass/Vol] 234 mg/dL High [address] [place] [address] Comment on above: Performed By: #### 4 [id number] ####[facility] (DEFAULT)[address] [place] [address] 65103 Glucose [Mass/Vol] 185 mg/dL High [address] [place] [address] Comment on above: Performed By: #### 4 [id number] ####[facility] (DEFAULT)[address] [place] [address] 48757 Glucose [Mass/Vol] 165 mg/dL High [address] [place] [address] Comment on above: Performed By: #### 4 [id number] #### [facility] (DEFAULT) [address] [place] [address] 80676 Glucose [Mass/Vol] 216 mg/dL High [address] [place] [address] Comment on above: Performed By: #### 4 [id number] #### [facility] (DEFAULT) [address] [place] [address] 05632 Glucose [Mass/Vol] 250 mg/dL High [address] [place] [address] Comment on above: Performed By: #### 4 [id number] #### [facility] (DEFAULT) [address] [place] [address] 65468 Glucose [Mass/Vol] 349 mg/dL High [address] [place] [address] Comment on above: Performed By: #### 4 [id number] ####[facility] (DEFAULT)[address] [place] [address] 97738 Glucose [Mass/Vol] 447 mg/dL Critically abnormal [address] [place] [address] Comment on above: Performed By: #### 4 [id number] ####[facility] (DEFAULT)[address] [place] [address] 30095 Glucose [Mass/Vol] 520 mg/dL Critically abnormal [address] [place] [address] Comment on above: Performed By: #### 4 [id number] ####[facility] (DEFAULT)[address] [place] [address] 13152 Glucose, POC >600 Critically abnormal [address] [place] [address] Comment on above: Performed By: #### 4 [id number] #### [facility] (DEFAULT) [address] [place] [address] 04115 Pharmacy Noteon 06-12-2023 Pharmacy Note The following medications(s) has been reviewed for renal dose adjustment per P &T protocol based on the patient's current creatinine clearance: Medication: Enoxaparin 40mg subq daily Estimated CrCl: 86.6 ml/min _ Action: No change required Changes Made: [Electronically Signed on: 06/12/2023 15:41 EST] ____ Emmanuel Hendrix [Verified on: 06/12/2023 15:41 EST] ____ [facility] Phosphate [Mass/Vol] 2.5 mg/dL Normal 2.5-4.6 [facility] Comment on above: Performed By: #### 2 [id number], [id number], [id number] ####[facility] (DEFAULT)[address] [place] [address] 93995 Phosphate [Mass/Vol] 2.6 mg/dL Normal 2.5-4.6 [facility] Comment on above: Performed By: #### 1 [id number], [id number], [id number], [id number] ####[facility] (DEFAULT)[address] [place] [address] 61651 Phosphate [Mass/Vol] 4.1 mg/dL Normal 2.5-4.6 [facility] Comment on above: Order Comment: add o n Performed By: #### 2 [id number] ####[facility] (DEFAULT)[address] [place] [address] 90702 Test Urine 1on U Preg Negative [facility] Comment on above: Performed By: #### 3 [id number] ####[facility] (DEFAULT)[address] [place] [address] 57998 U Preg Internal Control Pass [facility] Comment on above: Performed By: #### 3 [id number] ####[facility] (DEFAULT)[address] [place] [address] Progress Note - Nursetyson 12- Progress Note - Nurse Patient states that she feels like her blood sugar is [...] flowsheets. [Electronically Signed on: 06/13/2023 06:55 EST] ____ Zenaida Yabrrough RN [Verified on: 06/13/2023 06:55 EST] ____ Zenaida Yarbrough RN [facility] Progress Note - Nurse Dr Payne notified about pt Labs values and asked about currently LR infusion, if he would like to change fluids per the DKA protocol. gave order to keep the current LR infusion. No additional orders given at this time. [Electronically Signed on: 06/12/2023 20:04 EST] ____ Michelle Gallegos RN [Verified on: 06/12/2023 20:04 EST] ____ Michelle Gallegos RN [facility] Rapid HIV.on 06-12-2023 HIV. Negative Normal Negative [facility] Comment on above: Performed By: #### 5 [id number], [id number] #### [facility] (DEFAULT) [address] [place] [address] Internal Control Pass [facility] Comment on above: Performed By: #### 5 [id number], [id number] #### [facility] (DEFAULT) [address] [place] [address] TnI HSon 06-12-2023 Troponin I High Sensitivity 87.9 pg/mL [facility] abnormal <=15.0 [facility] Comment on above: Result Comment: Crit ical result TNIHS 87.9 pg/mL called to and read back by Elza Gallegos RN at 12-Jun-2023 17:18 by PREET. Performed By: #### 5 [id number] ####[facility] (DEFAULT)[address] [place] [address] Troponin I High Sensitivity 109.0 pg/mL Crit icay abnormal <=15.0 [facility] Comment on above: Result Comment: Crit ical result TNIHS 109.0 pg/mL called to and read back by heath sykes rn at 12-Jun-2023 13:53 by Frank. Performed By: #### 4 [id number] #### [facility] (DEFAULT) [address] [place] [address] 27293 Triage Panel 12on 06-12-2023 Triage Internal Control Pass [facility] Comment on above: Performed By: #### 1 [id number], [id number] ####[facility] (DEFAULT)[address] [place] [address] 54423 U Amph Scr Negative [facility] Comment on above: Performed By: #### 1 [id number], [id number] ####[facility] (DEFAULT)[address] [place] [address] 95057 U Landy Scr Negative Normal [facility] Comment on above: Performed By: #### 1 [id number], [id number] ####[facility] (DEFAULT)[address] [place] [address] 05945 U Benzodia Scr Negative Normal [facility] Comment on above: Performed By: #### 1 [id number], [id number] ####[facility] (DEFAULT)[address] [place] [address] 59296 U Cannab Scrn Negative Normal [facility] Comment on above: Performed By: #### 1 [id number], [id number] ####[facility] (DEFAULT)[address] [place] [address] 95595 U Cocaine Scr Negative [facility] Comment on above: Performed By: #### 1 [id number], [id number] ####[facility] (DEFAULT)[address] [place] [address] 19760 U Methadone Scr Negative Normal [facility] Comment on above: Performed By: #### 1 [id number], [id number] ####[facility] (DEFAULT)[address] [place] [address] 49661 U Methamp Scrn Negative [facility] Comment on above: Performed By: #### 1 [id number], [id number] ####[facility] (DEFAULT)[address] [place] [address] 71986 U Opiate Scr Negative Normal [facility] Comment on above: Performed By: #### 1 [id number], [id number] ####[facility] (DEFAULT)[address] [place] [address] 75578 U Oxycod Scr Negative Normal [facility] Comment on above: Performed By: #### 1 [id number], [id number] ####[facility] (DEFAULT)[address] [place] [address] 00637 U Phencyclidine Scr Negative Normal [facility] Comment on above: Performed By: #### 1 [id number], [id number] ####[facility] (DEFAULT)[address] [place] [address] 32746 U Tricyclic Antidepress Scr Negative [facility] Comment on above: Result Comment: Resu lts [...] PPX Propoxyphene (Norpropoxyphene): 300 ng/mL THC Cannabinoids (65-wdg-2-carboxy- -THC): 50 ng/mL TCA Tricyclic-Antidepressants (Desipramine): 300 ng/mL Performed By: #### 1 [id number], [id number] ####[facility] (DEFAULT)[address] [place] [address] 04164 UA Standardon 06-12-2023 Breakpoint UA [facility] Comment on above: Performed By: #### 1 [id number], [id number] ####[facility] (DEFAULT)[address] [place] [address] 01087 Color (U) Yellow Normal [facility] Comment on above: Performed By: #### 1 [id number], [id number] ####[facility] (DEFAULT)[address] [place] [address] 68900 Glucose (U) [Mass/Vol] mg/dL Normal [facility] Comment on above: Performed By: #### 1 [id number], [id number] ####[facility] (DEFAULT)[address] [place] [address] 80810 Ketones Ql (U) >=80 Normal [facility] Comment on above: Performed By: #### 1 [id number], [id number] ####[facility] (DEFAULT)[address] [place] [address] UA Bilirubin Negative Normal [facility] Comment on above: Performed By: #### 1 [id number], [id number] ####[facility] (DEFAULT)[address] [place] [address] UA Blood Negative Normal NEGATIVE [facility] Comment on above: Performed By: #### 1 [id number], [id number] ####[facility] (DEFAULT)[address] [place] [address] UA Clarity CLEAR Normal CLEAR [facility] Comment on above: Performed By: #### 1 [id number], [id number] ####[facility] (DEFAULT)[address] [place] [address] UA Leuk Est Negative Normal NEGATIVE [facility] Comment on above: Performed By: #### 1 [id number], [id number] ####[facility] (DEFAULT)[address] [place] [address] UA Nitrite Negative Normal NEGATIVE [facility] Comment on above: Performed By: #### 1 [id number], [id number] ####[facility] (DEFAULT)[address] [place] [address] UA pH 5.5 Normal 5-8 [facility] Comment on above: Performed By: #### 1 [id number], [id number] ####[facility] (DEFAULT)[address] [place] [address] UA Protein Negative Normal NEGATIVE [facility] Comment on above: Performed By: #### 1 [id number], [id number] ####[facility] (DEFAULT)[address] [place] [address] UA Spec Grav 1.020 Normal 1.001-1.035 [facility] Comment on above: Performed By: #### 1 [id number], [id number] ####[facility] (DEFAULT)[address] [place] [address] UA Urobilinogen 0.2 mg/dL Normal 0.2-1.0 [facility] Comment on above: Performed By: #### 1 [id number], [id number] ####[facility] (DEFAULT)[address] [place] [address] Urine Source Clean Catch [facility] Comment on above: Performed By: #### 1 [id number], [id number] ####[facility] (DEFAULT)[address] [place] [address] Venous pHon 06-12-2023 pH Denis 7.37 Normal 7.37-7.44 [facility] Comment on above: Performed By: #### 4 [id number] #### [facility] (DEFAULT) [address] [place] [address] 61690 XR Chest 1 View Frontalon XR Chest 1 View Frontal CLINICAL HISTORY : Chest pain. TECHNIQUE: One view of the chest COMPARISON: 03/17/2023. RESULT: No focal consolidation. No pleural effusion. No pneumothorax. Normal cardiomediastinal silhouette. No acute osseous findings. IMPRESSION: No acute radiographic abnormality. Final Signed (Electronic Signature): Bridgette Minor MD 06/12/23 1:52 pm Technologist: Corinna DEAL [facility] Coding Summaryon 06-09-2023 Coding Summary HTMLBase 64 OqpzowlrEAj9hXo+PG hlYWQ+ST4EDIRzX57f hJNsjT3zP0KLWEaISj wgQVBQTElOSyIgbmFt UQ5tbHSuYZUc IC8+FI4uDPDhWssmiO Zby6A9qTN2B72fes0f YAephIM4ENWnGzKxjn bnq3fpcXo3ZYcoPmxn OyBt EJTweA28EZA7gE52Ls 47lDDgnRRpy5kxsEx0 ChAbLMNdQRS1nDxtLA kfn5VoTIGrR47ofSLh c2U6 IGNvbGxhcHNlOyBlbX Y8rL0sEItpelmdv3cu ddhcIcd5pq14uFZpn3 V1jSO9G5JfdbW6YAHd bGQg BbthvIQDrF4qmmdqs3 xvcjogIzAwMDAwMDt0 QId5UQCrqVjaMyKdJN 05ANK3JELebzWqL5Fm LWFs dYycXtH5n6U3Ge1FN6 HFIlspI6VWSVZCDPzm dGQ+RU00bf71O6MqMp soVga5CIQfIJU8fQA9 aD0n PNPcWXijw3V5tJU8E1 RueeUkrx9cg1gzCCAo MPtvF13asWRcx8O3PX TybWH8BKOhjRdiPbTh aG93 Oyc+OOCqpOesh3HcTe jyw3nlf1nqbKf3Mvnf JTUuvfUtvNplJMC8e5 BsOu9pCUHfkPK9rIC0 aD0i JpRlEvM3JJufK402Jl BndXSjRxydS15aN0Uf dXA+XVBaOhy0RVCmhY vqCU6fZ9UiHYQrgejs bGVm yEtaQK8aTPYrurdzSY WlyX1cZMFgD4n4QoIu PkZ7PCowB4QgGVCxvn fnAq06tE2mQsClKvC1 MGlu B1XwcjP4DZWpiLRiIQ nxAST9C33fz9C1GBKa HZWyBJA5zTB0lC7stR lnbjogbGVmdDsgdmVy dGlj TBqsNCykS113XMQkaA snPkNvZGluZyBEYXRl OiAgMTIvMTEvMjAyMz wvdGQ+KSVrJXK2sEeb PSAn wRVdCTxcVt9qyWtkyA ygOO2jNJJxplkcARAl dF3nHWOafYHdbHlrQA 3xFKQrpurtw787XrGy MHB0 SANbbBXcS5QyrT2uIr XqTCPrGLQnS7HqaLSe JUvkY799XVckIbT8WB FqjvHgG6HiDLOpuWhw OiB0 j0Z4Jp1Cw4BnckfsJ4 RhdHVzOiAgRmluYWw8 U7IlLtptjXL+PC90YW EiYD06CKs4FNW0zJfh PSdi BTOpP4XneY4rYoMeLD RkZGRkOyc+PHRhYmxl IHdpZHRoPScxMDAlJy MwvBhdES4eDf5qNQOm LWNv lAnfyVYzZhVtu1hkKR YzTLmhDH8ndFgnY0Un yJT9OLMss2q0Wf02K2 3lS6LgpMG+PGNvbCB3 aWR0 fS1jGzSkObC4WDgwU6 49OlWkkZIbQmjvb2kw c6ohmNm7DmD4RZGioa GpiQmfCEO6v7XnRe16 Y29s IHdpZHRoPSIxNSUiIH RufTkyec8yuM2xAw3+ HOWgoKS1lDR2bZ2kUe SzVxC5AEcwP662RbLl cCIv Wtqlf1ffj2uqrAf6Ia IwJSIgdmFsaWduPSJ0 k4KiZg33H3MskRgku0 UbCko1bs69vEVom1D9 bGU9 U1RzJXPphpnpvXSnjJ vrXG6nVXGubivpFPMs jW9cYMNaI7l9UrUsLa U5OCykU3SlgeM9HMNz bGQg TAFihKCGgK6rwabgu7 xvcjogIzAwMDAwMDt0 ZYq2DPGihZxuQxViNR E7MxY5NPC2rUKzdC2y bGln kqpohN9cOop+UGF0aW UowHZOVT3iTxrkmJF+ KINfRDC9yXqxHJlqOL EeyG5iOKJdO1a2MgCk LjA1 AKtdB4ThbwN2SGInnG WiBBAkiPAIlQ3vxxny m9gxwcmmQtCnQZMkDX d6ITs4OSVcfWcgHrCf ZWZ0 FiL9NHJ2kIZenC5cpT mjxctvqI9aCyr+Qmly iSlpBMU4MBo1D4IzPv s4XCCplHpiVS9ztFPs ZGlu Qf9ykRktcFtgIX7eKY Gtenfao605LoPfu2fk MXBwuAAjFFggWRH8V6 3ki8H4WTGvCENxKVR5 dGV4 uW2pvXcfudaqaXCtfG sgdmVydGljYWwtYWxp J769EOSecVymTpLuEC u5Z5DvSmz1BXLmmHui ZT0n jHJuHWozBr4wuGzklU glEZ9pCTKxucdjy766 NwNeo6riSTSerVByHW usJYF4K30xa5Q9YEUr MDAw VBE6lTH6zS6tdMltml ogbGVmdDsgdmVydGlj JXxnFTpoF972KZStaY phXdOcqXb4U9DzXap4 ZCBz mJbjXA4xdBEnJGypKx 5grFelkToyJF7fYTCo wxeys664GxGrb5rsPM ZwjFMxVSykKVS3N02w b3I6 INOdNKIiUDD6dKW3tP 1hbGlnbjogbGVmdDsg dmVydGljYWwtYWxpZ2 46IHRvcDsnPlBhdGll bnQg QSfiOIr4T6GaGjqzeJ I+GL94YBHeGL90zNAa yAUdq8dbgBw0NbKtPS WcGJG2tSmwJLsrt6Bg ZXIt W90ldRBtn4H8XVComC qsxBHfBaCiuUF9aH4r CVrauwsca6zwubclNg nzp0xdlo69bO59Q16h IHdp ZHRoPSIzMCUiIHZhbG igjm8uvB8kWc6+PGNv oIW9bTG3bU0zBWUxEx R8OFhxX670DfXaxFCh Pjxj p2ufp8zmsVx6XfT8QZ UkkoMsxVwzLTP5y9Ke Xc16D36xVIqdWQMaMR ClYNGtLDNarDyyjm8q dG9w Ii8+TQUclQD1eRG3bY 9lQyGuRtU9FXclZ569 SpWzgNViWyrcT92jR5 JvdXA+ZRKiYsf5VHOc dHls BS5ucDReZTdaCb9pBH Z2PxJbVuOwBUqhR2Aa VOZespoovgwezYA7DN NmXVScbD03St7boRpt MTBw mPDLhG5eqsdsi0syyx iiYtDpXYOxLGl3QVv0 XUJuuRuuMoSqIGK8Tb K2KKL1dMOstY1rbOla bjog oW7jM6UhOXGepganRu 19bO9wJdYaZaU7KCbx Oyc+RW4XRKIMGRQOUZ hFGGQATMEDSRZ4Z9Rs Pjx0 TBGekTtnES8iyJHtMQ xdZv4uwNvdzZymCA4u JYLhcmabVEPjiI5wMP KvsTWhbJsaOL4xBFPn bjtm p533GoFgOQM7OXQomG HbE9IqqN6lFgNlLBXf ASXrA6ZqcVNrHJkdV6 30UIdvRsW7RDFpgvTb Y2Fs UHGkfObcFaU4g1M3Bq 9bZh8sUN6cSZhkXZ65 SK56mISyz3M1hEE2Z3 BhZGRpbmctcmlnaHQ6 IDAu FZAgqQ65jGPaYRzmUt 6cb8Z1j118IOYpDBYd sU70Dx9llMakOHTdzA TXmR2rbaqms6namniz IzAw QJJrEYg5YRp9TCZrmW zsNhQfHIN8YgO8QSC8 dJPiyO2bxMuaipnulA 9wOyc+MzAgWWVhcnM8 L3Rk Qfh4UZOooMwbSK6itS YtFKaiAk4ncZjfnPct WX7bWINadjupQFSejD 7eTLNxjYHauYoaDH9o NTBp xjbui172FeCdVER9RC UkkCTvF4OarE1cOaAj YPRkAIGhP1IjwFMyPL ivQ113CHedIbX8OTYm cnRp L9VpFYQlnPndQgP0g6 G4Ql9DFO3BVXW4Z2Qd Atr0IVXoxRlhFY4rnF CjMQuoRr1uhDbbjAbo MC4w XEXjwjruVWIlxA2iWF ZsjKWopQltWO4kOOFi nsrxk767UxDhZSR9CF PtfHUpX0IpdP0gKwQt MDAw UBFkH8XloORvGKbqC6 92FRhhBcT6JDGuteLz W6NhOYAlfVpgLoV5h0 E0Jh8ApZGnY5TaP7c2 L3Rk PjwvdHI+FG92OAMbIR 03sESvoLXgv5rndOa2 ZfXeDFUpMCF3dZxuJB vnd6HuOJTxY15cuVVm c2U6 IGNvbGxhcHNlOyBlbX S2rZ4oHZbxykjxl6fv lfcjZdnvo1feys38fT 01B38bIVxcDJZcAJPp MCUi GWXmvVapez4tpZ6nPa 8+VEPatUI9vNY4nY3n RyNgUwD8BTbpS547Xn VqeTEdQales4bpz0sg dGg9 IjIwJSIgdmFsaWduPS X0t7GoYo43E72tSOvx ZHRoPSIyMCUiIHZhbG urer6ouH1mWb8+PC9j b2xn gh59lL94aHA+PHRkIH P1cAnzBUlkOAUkmK7h LGqsWeU7NAYsWhYmwG 70dOKmEVhjWs0pjPze dDog TX5qJLLvqmplb611Cz Mtc0xcSVNeyFPbMJjd PRO6F01ul3U1MNEfDI YqSLP3nBK4kU8ahXxl bjog bGVmdDsgdmVydGljYW zgUTqtE927KNVdeDmc GmVvvZAyD6ciymSFKK 1lOjwvdGQ+PHRkIHN0 eWxl HJvcSJUdrX6bRXGrX3 q9BzBcVkA5XPzfX5Yw ujG4EXKcmGLtSHQwqB WEtL9eldlva0xrcuku IzAw FNIwGHl5PGl6ZZBmuY cbFsCuRMM3HrO6WLS0 tJMlpG7cmClduamfwH 9wOyc+RklOOjwvdGQ+ PHRk KUW3kVsrQLrtMGBovC 5gHMYqH8a9NxTzYwQ4 ALglS7UhciJ8VTErxQ DtQVEsfZQKbM9sowga b2xv wxjeTbAbUKOyMRo8JQ d2HTXatWizLxAuHOL8 FuZ1GEJ9oVAcmE4dkR egqpfgdQ8vIjl+TVJO Ojwv dGQ+MWGsSPK9cIoeHN pnFBZfhE7wYZIoG9j1 KvYoDkZ7XLqtU0Lxow V3QZPxzFCcKJInpAEL aW1l tciyu6vwwkuoZhQwBM BjUYd2PTx3TLOheZfq TvCsQZX1IrJ2DTX0yY GaqM1wuDnpemiduA5s Oyc+ KKS1HPF1BS30IT77L6 RyPjwvdGFibGU+PHRh YmxlIHdpZHRoPScxMD UaJlBjtRnsRM8nMd2o ZGVy LWN (more content not included)... [facility] Coding Summary HTMLBase 64 JmenuciwLFk1rKx+PG hlYWQ+FW9MUPEzX35z tQWvuY9oC7ICNGvEXj wgQVBQTElOSyIgbmFt VU7beQIuLQZg IC8+IC8sHHRxNkqtsD Ftv5S8fYX9F61zxi3e LHpjnNJ5QEYpMbObnr wmm6wsiRa3SUisTily OyBt VCCrxL42JMX3wM95Zg 39aSBdeRAlm2qixYo0 CqLnKMAzZOR6mXqwUP zgk0CrUBQwJ48jwYUs c2U6 IGNvbGxhcHNlOyBlbX G5kK6hSXcjicnbt0yp vkloIez6fi94xNOko7 H4nWK8U2FfvdO5INNm bGQg KfznnUOSbT0iqadzf8 xvcjogIzAwMDAwMDt0 DVv1WQLepGdxOnQoQS 78FBM3GUKnysCsH9Xr LWFs dResItY3o1A9Ic9PB4 CDYickU9HNIROPZBlr dGQ+FN69dk42V7ZqCm wcApu3QXLoJVY0sDW9 aD0n ACIiDGxnp9Q1kNN8O7 ZwqjHqns0gy5kaDGTp LNyjO69mnIJdv6A7VA YapBU5XLHjkHnoHsPb aG93 Oyc+WKTjvKlja6ZfRv kzb8lpw6otxUc4Xwdb BNVcvbOscUojVRE4e8 TxZw8jIUVcqDR6kRZ9 aD0i IcNhGcK7LYbhS535Fs NlfKYuUtcfK23sH1Mx dXA+ZJLyHeg6DVVfeK qwSO7jD1PmMBIxbafp bGVm qGawWI9aUHApfjffIV XxvD4rFMMjN8k7GhRz GbN5BKvxX9GfDDLphw ueAf05kM3yJoZsClS0 MGlu B4CfwbJ1SWRxpZGeIL arNYN1Y56bu1K1YFYn KWCjVGQ4yZQ6kN9vqJ lnbjogbGVmdDsgdmVy dGlj COlvDQgnE237MVBgtK snPkNvZGluZyBEYXRl OiAgMTIvMTEvMjAyMz wvdGQ+GVAgQKB2rGbd PSAn fTAlLDdmEw9kkBpehF jqKX2tWZGvkrytISBw eT7qAONvwCTygSalNA 8cFBEysnxhr656IvHe MHB0 RLGuqMHiA5ZjdP1qMj AbLQTfKQUsM7IqfJFf DJdvE168OQtjKlS8AA WjdmSbD1HrANXshTon OiB0 b0U0Sf7Ik8RrllyaQ2 RhdHVzOiAgRmluYWw8 F6HcZblehIY+PC90YW MpDV39JAl6QCC2nMtu PSdi BZTaI3RlrB3rLzZfCB RkZGRkOyc+PHRhYmxl IHdpZHRoPScxMDAlJy FxlEnjGN7pUt3pFHId LWNv dUgxkQBuSzYun4xbOL LtYXaaJQ5ouRrsC5Lw wPD3AJGbr6r8Jf30Q9 0oB6GieMN+PGNvbCB3 aWR0 wG3sZrNfUzC2MAyiT1 14MzUudUHzTeaxi6bt r1brjQd7VbR8FEBktd YocHbuNOF2y0PfJz37 Y29s IHdpZHRoPSIxNSUiIH RcfDfwte2hkP9wQk1+ PUSinOV2uRA3rY0xTg VkDeC5TAupM346IjAy cCIv Ourbl6ghf9kpvEv9Ql IwJSIgdmFsaWduPSJ0 q8UySn62B9StsYgzq9 FvSwc5oh34wFPqp3V6 bGU9 E8WpPTUtxlzfkPEirN jpPB9dLPOrjqgkYOYj kM8sKWJvW4f3PpMpDg Y3VSlhI7VbprZ2WWZl bGQg GGZngLNPfM2ohswka7 xvcjogIzAwMDAwMDt0 JRr6BZRetHdqHmEpNA Z4RxV1DUU0rQXfpW9v bGln qvytqI1dOmi+UGF0aW YycIVZOT2rDqiszPK+ LIKsWMP2qBbkXTtuHD HivV7cFXZlZ4l3KzOf LjA1 PEnoX7OamcN9RCZalR GiFKCzfDUOdZ6adjbd i2cnpxhlNsTiAFShKQ t3WSy2QLMszYhkJzYt ZWZ0 OuQ8XZT9jYNzbM9pgW anjaqktH4nFex+Qmly yTtqKJL6EUt3G4InWy x8JAKrdRswIH1pzIQs ZGlu Zw2bgAufxFgrOG2hEB Pkpviax870HbIkc1it OFGpsOGxWQjwBTL0J7 7vx2J7EGWoLKFoASZ0 dGV4 gS3yyZmgenxfvVFrbD sgdmVydGljYWwtYWxp D529IKFjsQhfEfMhFE c3Q2FrUhd5SXSotDyx ZT0n iVAoMUxyQk5rpTubfN dfJM6fJMBtsewtu536 CyLrl3ssKHGhrNPxPS idGGF0F44fc2X9IORt MDAw QAK8bLX5qN3boLyvbq ogbGVmdDsgdmVydGlj SSnzQKcoI012CVNrrD zwMzOtzBm3O3HrIjj2 ZCBz kVcvLF5gxFUlJUefQz 7awNaplYuwHM0fQFAi nfqdh571TbBoo5psXZ OvpEQwDJcsAAH7G90j b3I6 IENyRYWiFIN6oRS0fN 1hbGlnbjogbGVmdDsg dmVydGljYWwtYWxpZ2 46IHRvcDsnPlBhdGll bnQg FIfuADf4J6TyDuvxkG I+ES40FVBdBO96lIEm cXNyn9hknYo9YbXdRK MtEVF6tCwuZDwuy8Lk ZXIt O71arORiy4Z5GLRpmB veaVWlJqGmuDZ5nT8e AGeomdpay1wpjxnrXd siy1mjsv46hB00N91s IHdp ZHRoPSIzMCUiIHZhbG afom7hiF6jVd7+PGNv wBH8bKI3tK6dVFZxEy G6JMcdQ321QnWmiTKl Pjxj z2lql9hvtIe5KcR8IJ StjzMjcKoyGSC1j0Xs Rc11A83mIVxkXULyTV GrMIFtEOYdnXmvfj5e dG9w Ii8+WIMozAW5mEF0fE 8qKlRwUiU7YXnqL650 NkAscUYeFknhX53rO3 JvdXA+JARgTge5YFLa dHls XV9vqPXlVUssHt0mJJ E0NqPzZlZcXIbhK4Er ECUtnrutnwgqeHE5JN HrKVJdhV01Ff6hpBlq MTBw xCDFlA4mxmjfd6qwfk dqXvYkLQAlGJr6QQd4 QRLhxRkcXaJhVYX0Zh X3HGK9qIMyfH3nwUii bjog iA4xM7FjLUXbkhzeTv 00pY4sIkSaXgX5SBki Oyc+HE5FLBLCTTGZXL yLZKUBMUBOWZJ4Z4Na Pjx0 KMKkrWblHB0slXQuOK whSd6qnMnkkJeaNM5z YAYmtysxZZSilM8mIQ PawTEypTscRA5tYZGq bjtm p236WxFbZZN9JKYoaR YbG0JarC1kIjSfJIOo FYXxA6HylXRsKQpdL8 10PZciBdW4XLHgieRs Y2Fs IHKdiGpxWxD5l9O8Tk 4xLb5rRG4cOUsdKG13 QY64aFQsk1N1eOL0K5 BhZGRpbmctcmlnaHQ6 IDAu KHLdmL69xTGuFEwhXd 4pc8L5h703IKQaMCHl pZ01Gx2kfOimAYTsbL FIaG2chcaki0jsuasn IzAw KWHgIDp2PAs3JWEvkW xtXhHdXED5XtH2KZB5 xMHabL1daFqxgfyzxT 9wOyc+MzAgWWVhcnM8 L3Rk Mkc4WXZosIhdAZ1yjC YfOFpuRb2nfBgltJcm YR7bWEGkqyihJPXjxZ 3nXVQlsNEnsBvvQO3k NTBp quqvr322ZhNyZXG7WV DmqKTxB9DajD2qZkIb KDLyILTmL7WgoLVqXL ptT117MWwrStI9UXNn cnRp G4UjGJOkiHwqGnF5q3 C8Ae2EVW8ZHFC3L6Ln Zdn4YQNcxHddMM7mrG PtRSfnYu3ynJpcfOnp MC4w NWHwedvpTERbaT6xIW WprBCgfTysII2sGRDd vofiy465NaWzBPX2MH ZuqRPoL3BlyL0zFpSj MDAw CLYaX0YvdNZoBUpyR1 41GWprLmE9OSEgdrQc L6AlRKCdvBbaVaQ2y2 V9Zo0YgZNpA1AyQ1v6 L3Rk PjwvdHI+OW30DFVdPX 50eUHilUTns7cbyWk8 RvNvVIWuMYU2pHppUC uyn8ToJQVvQ04edPMl c2U6 IGNvbGxhcHNlOyBlbX V7tJ4kJTvsisilj0xg tbqeJwouz9mrtg17bY 18U49iTRmdWPMrMCVm MCUi XFIioEuzun7btO7oYd 8+UWSlqWB0kXX3pC8t GkOmOcS9KAoyO000Nm DvkOLtZkrbg7hgc9wr dGg9 IjIwJSIgdmFsaWduPS O9j4GlJg75D26tPEvx ZHRoPSIyMCUiIHZhbG irrg7vrH7iKh6+PC9j b2xn dk74uK80gGA+PHRkIH B8mQjcRFxcHMElzQ7a HVazTyA9AEGhPtCevZ 51qWSrQVukMl2jrEdb dDog HT1pRIImfgpxz484Ic Xpk2kfJRWlfBQgDCde XNX5E70yf0O4LOLaYO RoJKW0gGL4yU8xvZbu bjog bGVmdDsgdmVydGljYW uhZCpoO519RWXwsYbv JkQbiGHhK5xuunYXWW 1lOjwvdGQ+PHRkIHN0 eWxl MEjoQIKbzE6mRGNiA5 t7EsRhBtJ7PYsyU8Dd kvX5YQKddIDpTKEqnR OHqB5wlwbrk7uplsrz IzAw OZFdCFu0DXl8ESXkyC qfDjWhRDA8VbC4ZJE8 fFEybS1qyVyqdjlnlD 9wOyc+RklOOjwvdGQ+ PHRk GJS8uQskRSubLAJbyA 0hKKDrC0w7DzNoBdV7 QTwmJ8JkevL2UTDerP HgHVEgoLRRuI2roony b2xv rmyfFqLhXVOuKMp3BX t6ICBqhDheEbMrMUI0 GcX5AVL7zBCftM5ptB dwrflhrE4gLwo+TVJO Ojwv dGQ+SLGgINZ6zNzpLF kfVPFiqF8jOJOdX1t8 WgOrUoB6FTrxP1Nxoh N7TJRgwKDpIMUhyUWV aW1l npmwy5cjxrkzHiBzSV EiXBa9RVm5CZHsyHxy XdVrGUW9AzD1HDF6wM OjmY6xdVcgsoysiW2k Oyc+ GOB5CWY1OB56JE67Z6 RyPjwvdGFibGU+PHRh YmxlIHdpZHRoPScxMD ArVyXljBgeWP3aWd8l ZGVy LWN (more content not included)... [facility] Coding Queryon 06-05-2023 Coding Query Should this [...] Thanks. [Electronically Signed on: 06/09/2023 03:38 EST] ____ Linn Johnson DO [Verified on: 06/09/2023 03:38 EST] ____ Linn Johnson DO [Transcribed on: 06/05/2023 16:33 EST] RR Normal [facility] Standardon 05-30-2023 eGFR Non AA >60 Invalid Interpretation Code [facility] Comment on above: Performed By: #### 5 [id number], [id number] #### [facility] (DEFAULT) [address] [place] [address] 65380 eGFR AA >60 Invalid Interpretation Code [facility] Comment on above: Performed By: #### 5 [id number], [id number] #### [facility] (DEFAULT) [address] [place] [address] 24627 Anion gap [Moles/Vol] 13.3 mmol/L Normal 5.0-19.0 [facility] Comment on above: Performed By: #### 5 [id number] #### [facility] (DEFAULT) [address] [place] [address] 36263 Calcium [Mass/Vol] 9.1 mg/dL Normal 8.9-10.3 [facility] Comment on above: Performed By: #### 5 [id number], [id number] #### [facility] (DEFAULT) [address] [place] [address] 60378 Chloride [Moles/Vol] 102 mmol/L Normal 101-111 [facility] Comment on above: Performed By: #### 5 [id number], [id number] #### [facility] (DEFAULT) [address] [place] [address] 77808 CO2 [Moles/Vol] 25 mmol/L Normal 21-32 [facility] Comment on above: Performed By: #### 5 [id number], [id number] #### [facility] (DEFAULT) [address] [place] [address] 74280 Creatinine [Mass/Vol] 0.55 mg/dL Low 0.60-1.30 [facility] Comment on above: Performed By: #### 5 [id number], [id number] #### [facility] (DEFAULT) [address] [place] [address] 38755 Glucose [Mass/Vol] 293.0 mg/dL High 74.0-118.0 [facility] Comment on above: Performed By: #### 5 [id number], [id number] #### [facility] (DEFAULT) [address] [place] [address] 39897 Osmolality 283 mOsm/L Invalid Interpretation Code [facility] Comment on above: Performed By: #### 5 [id number], [id number] #### [facility] (DEFAULT) [address] [place] [address] 85715 Potassium [Moles/Vol] 3.3 mmol/L Low 3.6-5.1 [facility] Comment on above: Result Comment: IV T herapy Performed By: #### 5 [id number], [id number] #### [facility] (DEFAULT) [address] [place] [address] 72601 Sodium [Moles/Vol] 137.0 mmol/L Normal 136.0-144.0 [facility] Comment on above: Performed By: #### 5 [id number], [id number] #### [facility] (DEFAULT) [address] [place] [address] 40875 Urea nitrogen [Mass/Vol] 8 mg/dL Normal 8-26 [facility] Comment on above: Performed By: #### 5 [id number], [id number] #### [facility] (DEFAULT) [address] [place] [address] 05461 Urea nitrogen/Creatinine [Mass ratio] 14.5 mg/mg Normal 4.6-16.2 [facility] Comment on above: Performed By: #### 5 [id number], [id number] #### [facility] (DEFAULT) [address] [place] [address] 37222 CMP Standardon 05-30-2023 Breakpoint Chem Normal [facility] Comment on above: Performed By: #### 4 [id number] #### [facility] (DEFAULT) [address] [place] [address] ED Clinical Summaryon 2022 ED Clinical Summary [facility] [address] [place] [address] ED Clinical Summary PERSON INFORMATION Name: DOUGLAS CORDOVA Age: 27 Years Sex: FEMALE : 1995 MRN: Acct#: Visit Reason: Hyperglycemia; Hyperglycemia; HIGH BLOOD SUGAR Arrival: 05/29/2023 22:26:11 Discharge: 05/30/2023 02:16:00 LOS: 000 03:50 Check In: 05/29/2023 22:26:11 Checkout:05/30/2023 02:16:00 Address: [address] [facility] [address] PCP: ARCADIO IGLESIAS PROVIDER INFORMATION Provider Role Assigned Unassigned Yue RN, Shellie M ED Nurse 05/29/2023 22:27:47 Linn Johnson DO [...] penicillin PHYSICIAN DOCUMENTATION DISCHARGE INFORMATION: Discharge Disposition: Assisted/Jail Discharge Location: [facility]) PATIENT EDUCATION INFORMATION Instructions: Hyperglycemia, Sdeu-gi-Jgbk Follow-Up: With: Address: When: Return to Emergency Department In 1 day 05/30/2023 Comments: home resume your normal insulin therapy tomorrow you are welcomed to return as needed You are medically cleared for confinement. Jaun JOHNSON< ER PHYSICIAN< Scar Villasenor Alyssa, 29 MAY 2023, 2255 hours DIAGNOSIS: Hyperglycemia without ketosis Patient Understands: Yes - Patient/family/car egiver verbalizes understanding of instructions given Comment: Normal [facility] ED Patient Summaryon 023 ED Patient Summary [facility] - Emergency Department [address] [place] [address] PATIENT DISCHARGE INSTRUCTIONS Patient Information Name: DOUGLAS CORDOVA Age: 27 Years Date of : 1995 Reason For Visit: Hyperglycemia; Hyperglycemia; HIGH BLOOD SUGAR Arrival Time: 05/29/2023 22:26:11 Primary Care Physician: ARCADIO IGLESIAS Attending Physician: Linn Johnson DO Comment: Visit Diagnosis: Diagnoses This Visit Hyperglycemia ([id number] [id number] 4) Hyperglycemia ([id number] [id number] 4) Hyperglycemia without ketosis (R73.9) The Pharmacy at [facility] is open Friday through Friday [...] alcohol and/or drug addiction problems; contact the [facility] 20/01 Crisis Hotline -Text 4HXIB m[place] [phone]. If you received any narcotics, sedation, or [...] are medically cleared for confinement. T H JOANNA< ER PHYSICIAN< Scar Shah, 29 MAY 2023, 2255 hours Medication Information: The exam and treatment you received today in the [facility] Emergency Department were for an urgent problem and are not intended as complete care. It is important for you to follow up with a doctor, nurse practitioner, or physician?s chemist assistant for ongoing care. If your symptoms [...] so we can reach you if necessary. [facility] Emergency Department has provided you with a complete list of medications post discharge. Please inform your napper fixer/provider of your visit and for further instruction on these medications. Any specific questions regarding your chronic medications and dosages should be discussed with your primary care physician(s) and/or pharmacist. Medications to Continue That Have Not Changed Other Medications amphetamine-dextro amphetamine (amphetamine-dextr oamphetamine 30 mg oral capsule, extended release) 1 cap(s) Oral (given by mouth) every day. carisoprodol (carisoprodol 350 mg oral tablet) 1 tab(s) Oral (given by mouth) 3 times a day. Durable Medical Equipment for Prescription (OMNIPOD DASH [...] novel coronavirus 03/16/23 Problem added by Rule (IC_COVID19_MAGR_P [place]ANDEN) following SARS-CoV-2 (COVID-19)/Flu/RSV (GeneXpert) from Nasopharyngeal Swab collected on 16-MAR-2023 09:34:00 EDT teste (more content not included)... Normal [facility] Ketone Serumon 05-30-2023 Ketone Serum Small Normal Negative [facility] Comment on above: Performed By: #### 4 [id number] #### [facility] (DEFAULT) [address] [place] [address] 39318 Outside Recordson 05-30-2023 Outside Records [id number] 2#1.00OTGTIFF [facility] POCT Glucose Levelon 023 Glucose [Mass/Vol] 288 mg/dL High 74-118 [facility] Comment on above: Performed By: #### 5 [id number], [id number] #### [facility] (DEFAULT) [address] [place] [address] 87036 Glucose [Mass/Vol] 278 mg/dL High [address] [place] [address] Comment on above: Performed By: #### 4 [id number] #### [facility] (DEFAULT) [address] [place], [place] [id number] Test Urine 1on U Preg Negative [facility] Comment on above: Performed By: #### 4 [id number] #### [facility] (DEFAULT) [address] [place] [address] 20743 U Preg Internal Control Pass Normal [facility] Comment on above: Performed By: #### 4 [id number] #### [facility] (DEFAULT) [address] [place] [address] 88586 Progress Note - Nurseon - Progress Note - Nurse PT and [employer] deputy advised of discharge instructions-advis ed to check glucose every 2 hours until stable then to follow longterm protocol-may return at any time, educated on s/s of hypoglycemia to watch for. [place] provided with medical clearance form. Pt assisted back into personal clothing and cuffed by officer for custody. Pt provided with education and resources for transitional housing, Shama pederson, and [facility] hope line. Pt counseled on addiction and [...] [employer]. [Electronically Signed on: 05/30/2023 02:13 EST] ____ Shellie Turner RN [Verified on: 05/30/2023 02:13 EST] ____ Shellie Turner RN [facility] Telemetry Stripson 3 Telemetry Strips [id number] E5#1.00OTGTIFF [facility] .Auto Diff 1on 05-29-2023 Auto Rice % 6 % Normal 1-12 [facility] Comment on above: Performed By: #### 4 [id number] #### [facility] (DEFAULT) [address] [place] [address] 75942 Baso Abs# 0.1 x10 Normal 0.0-0.2 [facility] Comment on above: Performed By: #### 4 [id number] #### [facility] (DEFAULT) [address] [place] [address] 25417 Basophils/100 WBC (Bld) 1.3 % Normal 0.2-2.0 [facility] Comment on above: Performed By: #### 4 [id number] #### [facility] (DEFAULT) [address] [place] [address] 16667 Eos Abs# 0.0 x10 Normal 0.0-0.4 [facility] Comment on above: Performed By: #### 4 [id number] #### [facility] (DEFAULT) [address] [place] [address] 69718 Eosinophils/100 WBC (Bld) 0.4 % Low 0.9-4.0 [facility] Comment on above: Performed By: #### 4 [id number] #### [facility] (DEFAULT) [address] [place] [address] 48785 Lymph Abs# 1.4 x10 Normal 1.3-2.9 [facility] Comment on above: Performed By: #### 4 [id number] #### [facility] (DEFAULT) [address] [place] [address] 07242 Lymphocytes/100 WBC (Bld) 25 % Normal 14-48 [facility] Comment on above: Performed By: #### 4 [id number] #### [facility] (DEFAULT) [address] [place] [address] 57322 Rice Abs# 0.4 x10 Normal 0.0-0.8 [facility] Comment on above: Performed By: #### 4 [id number] #### [facility] (DEFAULT) [address] [place] [address] 86061 Neut Abs# 3.9 x10 Normal 1.5-9.2 [facility] Comment on above: Performed By: #### 4 [id number] #### [facility] (DEFAULT) [address] [place] [address] 31827 Neutrophils/100 WBC (Bld) 68 % Normal 44-88 [facility] Comment on above: Performed By: #### 4 [id number] #### [facility] (DEFAULT) [address] [place] [address] 83025 CBC w/ Auto Diffon 3 Erythrocyte distribution width (RBC) [Ratio] 15.1 % High 11.5-15.0 [facility] Comment on above: Performed By: #### 4 [id number] #### [facility] (DEFAULT) [address] [place] [address] 72894 Hematocrit (Bld) [Volume fraction] 38.8 % Normal 33.7-40.4 [facility] Comment on above: Performed By: #### 4 [id number] #### [facility] (DEFAULT) [address] [place] [address] 49807 Hemoglobin (Bld) [Mass/Vol] 12.5 g/dL Normal 11.3-15. 9 [facility] Comment on above: Performed By: #### 4 [id number] #### [facility] (DEFAULT) [address] [place] [address] Man Diff? Auto Invalid Interpretation Code [facility] [place] Comment on above: Performed By: #### 4 [id number] #### [facility] (DEFAULT) [address] [place] [address] 45392 MCH (RBC) [Entitic mass] 26 pg Normal 24-34 [facility] Comment on above: Performed By: #### 4 [id number] #### [facility] (DEFAULT) [address] [place] [address] 35623 MCHC (RBC) [Mass/Vol] 32 g/dL Normal 26-37 [facility] Comment on above: Performed By: #### 4 [id number] #### [facility] (DEFAULT) [address] [place] [address] 74220 MCV (RBC) [Entitic vol] 80 fL Low 81-100 [facility] Comment on above: Performed By: #### 4 [id number] #### [facility] (DEFAULT) [address] [place] [address] 32686 Platelet 255 x10 Normal 138-427 [facility] [place] Comment on above: Performed By: #### 4 [id number] #### [facility] (DEFAULT) [address] [place] [address] 72770 Platelet mean volume (Bld) [Entitic vol] 7.9 fL Normal 6.3-10.2 [facility] Comment on above: Performed By: #### 4 [id number] #### [facility] (DEFAULT) [address] [place] [address] 64158 RBC 4.84 x10 Normal 3.70-5.30 [facility] [place] Comment on above: Performed By: #### 4 [id number] #### [facility] (DEFAULT) [address] [place] [address] 58955 WBC 5.8 x10 Normal 3.5-10.5 [facility] [place] Comment on above: Performed By: #### 4 [id number] #### [facility] (DEFAULT) [address] [place] [address] CMP Standardon 05-29-2023 eGFR Non AA >60 Invalid Interpretation Code [facility] Comment on above: Performed By: #### 4 [id number] #### [facility] (DEFAULT) [address] [place] [address] 34188 eGFR AA >60 Invalid Interpretation Code [facility] Comment on above: Performed By: #### 4 [id number] #### [facility] (DEFAULT) [address] [place] [address] 42938 Albumin [Mass/Vol] 4.3 g/dL Normal 3.5-5.0 [facility] Comment on above: Performed By: #### 4 [id number] #### [facility] (DEFAULT) [address] [place] [address] 66273 Albumin/Globulin [Mass ratio] 1.2 {ratio} Low 1.4-2.6 [facility] [place] Comment on above: Performed By: #### 4 [id number] #### [facility] (DEFAULT) [address] [place] [address] 02464 Alk Phos 80 IU/L Normal 32-91 [facility] [place] Comment on above: Performed By: #### 4 [id number] #### [facility] (DEFAULT) [address] [place] [address] 18271 ALT [Catalytic activity/Vol] 23.0 U/L Normal 14.0-54.0 [facility] [place] Comment on above: Performed By: #### 4 [id number] #### [facility] (DEFAULT) [address] [place] [address] 13808 Anion gap [Moles/Vol] 14.3 mmol/L Normal 5.0-19.0 [facility] Comment on above: Performed By: #### 4 [id number] #### [facility] (DEFAULT) [address] [place] [address] 68090 AST [Catalytic activity/Vol] 17 U/L Normal 15-41 [facility] Comment on above: Performed By: #### 4 [id number] #### [facility] (DEFAULT) [address] [place] [address] 10465 Bili Total 1.1 mg/dL Normal 0.3-1.2 [facility] Comment on above: Performed By: #### 4 [id number] #### [facility] (DEFAULT) [address] [place] [address] 05349 Calcium [Mass/Vol] 9.0 mg/dL Normal 8.9-10.3 [facility] Comment on above: Performed By: #### 4 [id number] #### [facility] (DEFAULT) [address] [place] [address] 91087 Chloride [Moles/Vol] 94 mmol/L Low 101-111 [facility] Comment on above: Performed By: #### 4 [id number] #### [facility] (DEFAULT) [address] [place] [address] 57668 CO2 [Moles/Vol] 25 mmol/L Normal 21-32 [facility] [place] Comment on above: Performed By: #### 4 [id number] #### [facility] (DEFAULT) [address] [place] [address] 77518 Creatinine [Mass/Vol] 0.73 mg/dL Normal 0.60-1.30 [facility] Comment on above: Performed By: #### 4 [id number] #### [facility] (DEFAULT) [address] [place] [address] 32186 Globulin (S) [Mass/Vol] 3.5 g/dL Normal 1.5-4.3 [facility] Comment on above: Performed By: #### 4 [id number] #### [facility] (DEFAULT) [address] [place] [address] 53670 Glucose [Mass/Vol] 784.0 mg/dL Critically abnormal 74.0-118.0 [facility] Comment on above: Result Comment: Crit ical result GLU 784 mg/dL called to and read back by scrap [email or web address] kline at 29-May-2023 23:28 by erica. Performed By: #### 4 [id number] #### [facility] (DEFAULT) [address] [place] [address] 25788 Osmolality 295 mOsm/L Invalid Interpretation Code [facility] Comment on above: Performed By: #### 4 [id number] #### [facility] (DEFAULT) [address] [place] [id number] Potassium [Moles/Vol] 4.3 mmol/L Normal 3.6-5.1 [facility] Comment on above: Performed By: #### 4 [id number] #### [facility] (DEFAULT) [address] [place] [address] [id number] Protein [Mass/Vol] 7.8 g/dL Normal 6.5-8.1 [facility] Comment on above: Performed By: #### 4 [id number] #### [facility] (DEFAULT) [address] [place] [address] 37465 Sodium [Moles/Vol] 129.0 mmol/L Low 136.0-144.0 [facility] Comment on above: Performed By: #### 4 [id number] #### [facility] (DEFAULT) [address] [place] [address]30 Urea nitrogen [Mass/Vol] 8 mg/dL Normal 8-26 [facility] Comment on above: Performed By: #### 4 [id number] #### [facility] (DEFAULT) [address] [place] [address] [place] [address] Urea nitrogen/Creatinine [Mass ratio] 10.9 mg/mg Normal 4.6-16.2 [facility] Comment on above: Performed By: #### 4 [id number] #### [facility] (DEFAULT) [address] [place] [id number] ED Note - Physicianon 2022 ED Note - Physician Patient: DOUGLAS CORDOVA Age: 27 years Sex: FEMALE : 1995 Associated Diagnoses: Hyperglycemia without ketosis Author: Linn Johnson DO Basic Information Time seen: Date & time 05/29/2023 22:31:00, Easy ambulation past the fish bowl, in no distress, in presence of chief of police. History source: Patient. Arrival mode: Private vehicle, walking. History limitation: None. History of Present Illness The patient presents with This patient presents to the emergency room with an elevated blood sugar, she is a known diabetic, she is to be a resident in the local longterm facility, she has not been using her [...] be started on the morning of the longterm. Impression and Plan Diagnosis Hyperglycemia without ketosis (CDF02-GY R73.9, Discharge, Medical) Plan Condition: Improved. Disposition: Discharged: time 05/30/2023 01:55:00. Patient was given the following educational materials: Hyperglycemia, Afge-ck-Mhce. Follow up with: ; Return to Emergency [...] Police. [Electronically Signed on: 05/30/2023 02:57 EST] ____ Linn Johnson DO [Electronically Signed on: 06/09/2023 03:38 EST] ____ Linn Johnson DO [Verified on: 05/30/2023 02:57 EST] ____ Joanna Linn Scar DO Normal [facility] POCT Glucose Levelon 023 Glucose [Mass/Vol] 590 mg/dL Critically abnormal [address] [place] [address] Comment on above: Performed By: #### 4 [id number] #### [facility] (DEFAULT) [address] [place] [address]2006 Glucose, POC >600 Critically abnormal [address] [place] [address] Comment on above: Result Comment: read high Performed By: #### 5 [id number] #### [facility] (DEFAULT) [address] [place] [id number] Coding Summaryon 03-27-2023 Coding Summary HTMLBase 64 CafsrmkqWAm9oPn+PG hlYWQ+VR8CFUDtT82r kWSzxS2iP0WLAGgYOs wgQVBQTElOSyIgbmFt GY6usOBcMEIs IC8+FT8mVUEiMmimeS Nsd6B0lQC5R33jos1g GOdueGU4DOEyRqCibi eed3mslSd1TPaiJzuz OyBt YNFcdH57NXD0wS20Gk 73aAUlrLDnk1xbkNa8 PcQiOGJfXWR9uIamER mgz1KbHMEjA22niYHn c2U6 IGNvbGxhcHNlOyBlbX A3fD7gHAxcryhtg6xh ofcoJpb1et19wBCoe2 W6oCB7H2IgxfM6EAGs bGQg OauecHZYeU0zjllsw1 xvcjogIzAwMDAwMDt0 PPz1FXJeaNfmTyJsDK 73TMI7NGVtbcBmF5Pp LWFs lIciDaR8k9C7Lf8IH2 CXArbuI0NRWBDZKIaa dGQ+AW21rr23R4CfOs taHph0PTHbCZY1lCB8 aD0n YAVqKNreq3Q1aXA4B3 DbukClzo2nf5emEXNu GKavS72gsHWrc8I8DH IrrHW1JBItkFyeCrIg aG93 Oyc+JRVzzGqxn1DgZc ndp9uwe4iuxWg0Cjvi PSKvjfToaAshRIK0n7 EjXw2ePCIkmPB6nHC5 aD0i AhTwThE8MEavJ082Hx TngLOqXtekM34kE6Aa dXA+SUFqZrb2YYBxnF cyCA4fR2AsRAHwzxif bGVm fRllFI4pCZHykvnlYE RhpC6kTDKmJ8k3SgXe YqR5DEatN0CsLCTbhd urYl23cT9nBoOzGvB1 MGlu H2KugwC0GSTwdZWkUG izQDN9S70qo9W1WPEr CVEvBBW8dXR7mN6yzS lnbjogbGVmdDsgdmVy dGlj LWehUZywR731COLswH snPkNvZGluZyBEYXRl OiAgMDkvMjgvMjAyMz wvdGQ+WZMcNOK3xSnu PSAn vXCgHOyfGm4dyUzhnJ tqSL9kCOWuwtbwXWRt fV5qSXRcoQObaXyxUA 5uULUajeocu269DyGt MHB0 QJCoxMUxH3YpmC7iVr RiOLNjTAZtU1LysHZn CQguY601BLmiJzY5CN RayiBwQ4KfRLWhrMll OiB0 e0E3Kq2Wr7BlasshL9 RhdHVzOiAgRmluYWw8 E9LbSazylZS+PC90YW QyMA74TOq5YLE8wBqj PSdi UJEwN2TqzN8tZePeXS RkZGRkOyc+PHRhYmxl IHdpZHRoPScxMDAlJy VqvVfeRD9tSl3qPGEy LWNv qPcmyJNfHmHyr6wcWW BwJOzbXG5gbMwqU0Uw zLK0TDAfh6t7Mt51C5 7pI5UvxCQ+PGNvbCB3 aWR0 jR7nHxGlWwU0LAidB3 20EuRznWYqOargr6fz p1ijiLa0JdU8QIFgxx WiyFaiXEF1k2AfJs17 Y29s IHdpZHRoPSIxNSUiIH ZlsIdwxr6auT5jAz4+ VJAhtRJ1aOZ8iQ7bNf NxAyJ8SJzpL934XzFb cCIv Swcoa3zmp0soiXe4Rq IwJSIgdmFsaWduPSJ0 l4PiTn48B6KgnOmoy4 HwOxu2bv49wQLif9K4 bGU9 E6UuUZHwtnakvZWnkB cpAB6yJPHqjimhNWMj rV3uHNVfC9w0CnFjBp V7ASxcR1OyoeJ1SMPq bGQg DMNmfGGXwG9ygezpl8 xvcjogIzAwMDAwMDt0 WRm6EKXrjIzeEnPzWV U7RsC9GNJ7xZOzxX4d bGln cvmepK7rFid+UGF0aW InhWCOEW5bZttlxRX+ IRMoFIP5mWzqHUaeYY GuyA3vILSkO4v8GgVw LjA1 FSupG3ZdkiD2CULvmT SvDRVraJXBjZ7jiyko j1mvfjemZuPjATOmLV w0YDw3PDDdgPszTiJm ZWZ0 TaL3CRR3oKZylF6rdM skykahmH5jMkm+Qmly jEkiZWL7BQm2S7DsGk d4CEYnhJbkIT3buVEz ZGlu Mh1oaBoxtChyHS5qIJ Quhqafe695ToCov2hj XVJdeEJmGAqcUJA6U3 0zw3G3AALrPKVvXFN9 dGV4 kM6nkWeobhzdhIWgmF sgdmVydGljYWwtYWxp X265RIJuuSibMlHkKY x1D0BjVyz8UBDbeJqq ZT0n uWEwVFhtJr2fyDhqfD kiVQ5mSFPgioqag130 JfHmg2mbSDIygKXcIH gfCNK4N05sv8X0KJJp MDAw DWO6xER4zK2euGjish ogbGVmdDsgdmVydGlj REacZJdmK523WDItuA hfYtDqcGe1S9NjAdd8 ZCBz rMowSL8osUNlBYsbGd 5ewCxpsNlcDW9bVFYf pomzg944XqBgd6kgML GhyAAqMHquEIL7L49z b3I6 TSDlYBVnYCJ8vDG3eV 1hbGlnbjogbGVmdDsg dmVydGljYWwtYWxpZ2 46IHRvcDsnPlBhdGll bnQg XDhuCDt1J9DhUhwqbX I+ZR47JVBzBS61cIWm xCHro1dcxCh6HyRlEB RwVMY1kRdxJAuzz3Ch ZXIt T44qqGEpi5Z8NVYzwJ junYMuYjCbpWW3fH5q OThimwbmk5srzaihMu tyu2plll41iI25U48a IHdp ZHRoPSIzMCUiIHZhbG objb8ppN9dOv6+PGNv wUE1jAN4gY7aILBhMg B8VNioL913CpTqyHMs Pjxj k9kbg1mpeDw2NuK2AF EgnpFpkSrcZUI0l4Ux Zk82H75cFKfhWMGkYI NzUBScCUPvnJtkrx4e dG9w Ii8+HXSkfDR6mYC8zK 5rZrXbQtE4FCxdI898 DiStiPTsSewsT47nV6 JvdXA+IBGeIel8HDMy dHls HR1ilIEsPAqeIu4vLC E2SsEfKdPzJNoyK1Hn DFJkjvlfhavdjCT6JB JtREMztL29Ns0yiNyh MTBw iAXXkU2gnokzv1ogey nhUdTpORMlPNy2KLd0 SNVecLxsOcBvYGC2Kx Q9LME5fCRjbK5zeDcq bjog tE5lI4GnYYSxywbfUc 85oL7eJwLpEkA4WLzc Oyc+UX6OLOZNFYPFLU sWHQGVCK29EC35qRYg c3R5 nHV3D6GdJWQmcmxckz adyXM8HJBmUEMatV53 yHBmQYexRg9jb8L1i5 92CWBoOGXtlM64Wf8g dDog FOHbkIGYfZ7clbmup8 xvcjogIzAwMDAwMDt0 UZc6EGXnxBypFcQfAG P0HxM9NQQ0aUQqkO7e bGln rvmbaK6gEfm+MTIvMD PaQQg3ZwdaxBW+PHRk JRM8cNbxQLkyLNVjpO 0qCLYnB5n5UtYbIwJ7 MGlu H2CiMYKldigsWc39rK 2qXtXqDtV3UQwjJ1Ec ynK5BTKjdPKrGMbyZV Z8C06bw2M7MNNpTDMw MDA7 fNM4pT0omCpeuxjjoN VmdDsgdmVydGljYWwt MMmhK736MBYbpZzvVs P4OIgxSBFaFY94QP52 dGQg b9H5wDS1M6QmUBIwph abzqsymVM9GSKoBHUe hT74kVZeUVsdXy3pe9 B1w423NEOyJASwuH86 Zm9u aNgeFQErpIKMfN5mly uly5lsxjovLbWwGMUk ALg0OGr8TCAimRsfWe MvUSD9ZkB5CUL8gXQm bC1h mGmleirchJ9eDrn+Rk QUAOoKOK84BR60dLVl f8M7vGL2M2CzPSPxlg rbfdhlwEP5KTTkSNEe aW47 kGBuSOnvNm1kd4U3y9 72XWHvXCRfwX47Il1l cZlbGLVgkUJOrN6ejt scn7tgsmqlMhWtBPIq MDt0 VNa8AIYlbEewLgSrIL A8BpJ2YAO4lMAeeK5t pHssigjauO7pJvw+RW 8rxdemxlE0FN66DS68 L3Ry PjwvdGFibGU+PHRhYm xlIHdpZHRoPScxMDAl YiUpxAiaYI1iOn1wRH VyLWNvbGxhcHNlOiBj b2xs BVKaDQdsDF0mnZqoK4 McvLK8XDShs1l6Up93 B56jQ3ChmBH+PGNvbC N9pQY9rD9oJiGuTsD9 YWxp Z436FmTnbTPxReqmd2 srn2vwoMf0PbDoLAUe rzLgpSweAZV5t5BwPu 29G21yKChcNQEtWFRx MCUi YBUluZsmpw2elI1qJz 8+DWExhKD6fME7rL0m LzAoUlV8GBzpL173Mu DraVZqAeczG39eJ1Sz dXA+ PKOuIky5XJJlqQblPL 9rjTJlUZdjWq6sUOE3 BuTuMiVfCFhaB1HsVB RsuboozxmvgTU7RSJq MDUw rN58Us4ljJmyUe9nCF GrLFF2EIPqdNAdE2Ll bW7mDrZfJGTfKWTfR6 SlwHEzNFpxX783EJzg ZnQ7 MENfegHaX8CfIAIfwO xrBaQ6a0V7Nn0MmDlv jFGtUZ8kBkHuBAg3T5 LaHpe8EQEajKatLX8f cGFk FCtpId3mrWgnoCehVA 0uGCOuzjthc918EoOx t9abKSSxoWNnVBbxGB H9G19id2E9GPBhGMXf MDA7 aGV6fN9ahRhpnfvqwG VmdDsgdmVydGljYWwt CVzrS680SNYrsArbVn ZTPpj3J7KqGhy4HWAl dHls PD8pbOBfNTsaRv5zjO canQybTR3zQDQvzbxh t388VcIca9rxAAKwwB KfKWpeNCT7N28np3J2 ICMw ZIHiJVX3tUR1lE8bsL lnbjogbGVmdDsgdmVy yMqkBUjcDEleX983ZI RocAzfYh9OZnr3K3Tm Pjx0 LCKgnAujNH3taIAxOD vjEr5znWohfAipBU0f LAWcgwzss388BfRzl4 xkIDEwcHQgVGltZXM7 Y29s r9O8SLNhGOSrYGQ1pP C5xF7bkUhqfiekoSLt dDsgdmVydGljYWwtYW utS784CGNqjXhiOiZl eWVy OjwvdGQ+CB38wr50T3 QgTbubZan4ZPVbHZP7 lRZ9xL7dEEKaUJfky7 L1xTN3Y0ImmjQotk9d b2xs YXB (more content not included)... [facility] Coding Summaryon 03-25-2023 Coding Summary HTMLBase 64 YcmdbdwaFOl4uSq+PG hlYWQ+ZE2NSLGvR37a cKXjnZ7eC0ALRGkKVh wgQVBQTElOSyIgbmFt CQ4zbZMjEHBo IC8+TW2lPQMeIidqzJ Skq4Q9xKH9K12cch5a YDtnqYU0ADIvPnWsjg huw1qgxHg9NKphUksl OyBt ZJTmqP00ZVN2xB67Rp 43hGUkkSOcc3kqwWk9 WjVxYHOpVTK2bIfgYV omz9NgAZBrF24dbEXx c2U6 IGNvbGxhcHNlOyBlbX Q1qJ1kIEmavchgi9kc gpleVpl6ng51gYHjc2 D3lHV1A0XoyzT6FQWr bGQg OpzkiQSAqR5gownlz7 xvcjogIzAwMDAwMDt0 CRx0XVBgmKviPlRiJK 06SKQ1UJCnjlWuA6Gx LWFs xSfjWmN4i1I4Wz4AN2 VDBrmeL2OXSOPJYGpy dGQ+JA32yq52Z3AqEy zfEau9IAZeGYI6wSS1 aD0n UCXuONrpq6E5kZT5C3 AxumDsfb2pe0hpFPLc PJgvT34gpCJag3V7ET UnxWN7ADPboCcvVlOk aG93 Oyc+HANwfGpgm6LgOq ziy2unq1xwbCf6Biyo ZQIoyhQmwYemHHB4o5 DnHx4vCHLoaKP1zEE9 aD0i HgOfIxW4XRqeU934Rv KnvSXpOjorL44mW4Rx dXA+IYMoKjw7UUIorQ jtCF1vH0RxJMWiuapf bGVm jQirJO4zAUTkanhaGQ PksT4wUJQbZ1b6ThHb VnK4YDrwF5CfJLMzzf xgHm63vM7cVuQpVsN2 MGlu T6WlcsF0VJRnxIObZT meORT4M56ex2F3TKVa UDUyVTZ1mAL6fL7msS lnbjogbGVmdDsgdmVy dGlj HBpiYFjpS661AGDkfV snPkNvZGluZyBEYXRl OiAgMDkvMjYvMjAyMz wvdGQ+YGQfUVP1cPdt PSAn rODnDPfhGe4byWltlU reVF6eVXWlkahcDJDr nI4kCFJjdMMidVmuLL 1vZMBqnjqlu554MoXh MHB0 GKXuvJEeO4IibT8iRf PxNEPhFFGmN1DggAUd YGngX124QCxyYeO7CH EtovHgH1YzZJVbtNub OiB0 t3Z2Wo6Nm8BolfbtQ5 RhdHVzOiAgRmluYWw8 O5YkVflwtQM+PC90YW TlJG03LXu7BOZ0vTai PSdi VNXbB6ScoG9mZnVjVI RkZGRkOyc+PHRhYmxl IHdpZHRoPScxMDAlJy LcmLszZQ2tDo9rLIDw LWNv jLfcqCZiOjMlz6avCL LfDKimBH0shIlwH8Dy pKY4IPFvb5w5Xs10V0 2uI8AfuJO+PGNvbCB3 aWR0 oE9rFqPzSjG5GUqyW5 04DsHamIZsUlsep2zj b0aveJa5BdU9HYKrti EnsOeuMYE5n6BfVn60 Y29s IHdpZHRoPSIxNSUiIH NpuMhtgi4kfV8hRn1+ DGQtzKH5gNY1bZ0jYr WmPuA4EGbaP439LfZd cCIv Xzwtu4dfi3lzeLo4En IwJSIgdmFsaWduPSJ0 u8QiFn45J2CczBxso0 UzLvw7xy17dMFxw8I9 bGU9 Q1InZHQfeqvmhLZqfT cnXP9cYAFqmvwgDPFs rC6bTWKbA7d6GiGtFl S8QJevR8FggaL9OYMq bGQg MFPizUYXsN4bkpyqy5 xvcjogIzAwMDAwMDt0 STv1ONVsdNcsPtSlCQ P0XuW8EYL2gEYjdK9r bGln ovpjxK4yHbk+UGF0aW WnxSJLUD7kCsdpxUD+ LLHiLVL6vSgoLGueBO LpfP5mPHTqM5o4SqXm LjA1 DMssZ3NlezU7ISHcqY BuLVKnoXVYhR6ucsev v1nlmrjwNwCoOLZvGG o9NZr2PLUmmJogSzSf ZWZ0 FrB3INA6zGUenQ7stQ ywoxccpM6kZsl+Qmly kEqsLGJ6WFv5X6HtGj b4OCLcyIrcLR4utEIr ZGlu Fp6ulCfgsPdyPS5zNH Twttrpr696JuNsg9ff IJWqpFNeBRswMHB5B8 2ah4L8JWAcTDHmCOJ5 dGV4 oV2pcBiwuwvbtQNbiQ sgdmVydGljYWwtYWxp B413QGLhyLboFeBkEX d1N0VpGqn2CJZmfKvq ZT0n bYWiLRftQs1hxCtpyU khPV8tGZDvykirq026 WvZsc3vfLGHusFCmLY htYQU2T96sg7Z7JYYz MDAw MWK9bAT0fR9ueCbhhc ogbGVmdDsgdmVydGlj ZBclEJfuB622GFEupC fsXgPwgIk9H9TiQas4 ZCBz qMklIK7xsILlFZviTk 3qxBjpqJgsSC1rEQWe qpqds283RqDmh0eyDS BioJUyRZguXLO7I63y b3I6 DFJbJYDaKBC1yRU7yZ 1hbGlnbjogbGVmdDsg dmVydGljYWwtYWxpZ2 46IHRvcDsnPlBhdGll bnQg YDmpHFp3M7RzByeleM I+FL46BFReRE24uWBj pLEbp4clyJd6VrDySB SoUAN6bDzvHMamb0Wj ZXIt A00caGOfl9B9MXRgwT dveNBkMgCjxGR8gY7c FAefupnpy8qviqgtRq cvx1qmek58sX49F61q IHdp ZHRoPSIzMCUiIHZhbG nwnw7eoQ0bGh1+PGNv rVV9oGW7nK3bMEAvNl C3EHvvC300LeJqrEMt Pjxj h6abq8vujFo0QaD6VF NqqnUydYigHHV8m6Jg Tq32D51dCKbgJGJuSU GqWFHzKIItpIpiiy9e dG9w Ii8+EFVsdMR6iPK3yM 2bKpYzShS7CYkdQ502 CoXttFJdJicvJ18pB8 JvdXA+KWBrMuz9TDTb dHls OT4uyQSlBHcsUz6yHX D0HvKbJiRoRDnsA9Vu ERDhtrqagbfeqAC0JM ByAIJznV40Kv7efMvx MTBw uKJXpQ1uwfcpa1efnc cuLvCrWDStXQd7BFv8 JXYceVcpZvLfGCP0Fz B4PSA3xBGptU1sgJke bjog wX1iI6OqSUFzceagWz 71bM7lCmHfIfA3SXyo Oyc+ES6AAWDLHDNMBS jUHSYSGA14TL14oREm c3R5 pAN7F8AgMTVzmawunw sydSO5OXKtSVPxzF93 wLIeOEmbNc3pb4J1q2 70FKTvKBKnxS45Ar6j dDog TNOvyHOLlB4hnstvb7 xvcjogIzAwMDAwMDt0 ONk3CVPbuHwsGaGwFC Q0PoY4RNW3hKDzkV2o bGln vraglX2qRlm+MTIvMD PjJDm4EfgesLL+PHRk WHA5bUmoFRudZQMaaT 7eDLLzA2q6KpMqJmH8 MGlu W7OwHEIqrlkcOv49zZ 8tSmMqEbE5HVvvZ4Ee llE4XCMmsVVuPPhmCD V2T70el7W9UNMuFYSc MDA7 aSN8rO9qqFvaljnddP VmdDsgdmVydGljYWwt TBuaQ380FRCknVptNn Q4RPfjWRHfFQ81AQ31 dGQg s0E1rKW0J9PaDPVoqx xtujiznSU1XPLnDJKe oS73tSAdYGoxBa8yg9 I5m917YUQqDQPkxZ17 Zm9u nGdeATDdgDDJeT1wnq dak9ateytcEkYrYGIo HIr8BAk0ULSzsCvrPu MaVTC3BvZ8ENJ9gUZs bC1h sKzoxzgerR6vKce+Rk HOFRrNFO00LP35bCEk q1H4iRJ6V2MtIZThml miozwswPL3DIZmKJSh aW47 tJMaSPnaTx9nz3J9x9 30QIIhUHBbeY89Fz5c iTmaLOVzaDJOqY8kfh hoi0bwgtgoFqYvFIDy MDt0 KHt5VKUwpWueNsMgQZ C4BpZ3FIS5aZOgwA0w aDjvvqwmnI0jBuo+T2 VqNIJ3DLYnt039U1Nz Pjwv dHI+FI69MWBmTS16pS AylIPjq8tkyUg4HnSd RUAtJNA3uRvdLEqgr9 OoKRSgH64ucKIpb1I7 IGNv bGdckPVdDkEuaHK0cE 3cBKcmvhogj9camzzz Qfkxc5kdsg15nL13V4 9sIHdpZHRoPSIzMCUi IHZh gXokso2goX7iVu2+PG CkrCV1nQU9lA8jNhBt QiQ8PZfkZ936LuRikE DuXumuz7enl6ucnVt0 IjIw OOIpfkNyyQhaGSR5i0 RsGu85T18pBWutBGPe PSIyMCUiIHZhbGlnbj 6jgK3cOi9+CO2yf7gm cm91 pT36hUU+VJPzLSK4tF hhAJntAMPmfS7uPAcg QnZ6RCOfThAgsJ90sV KpQYaeNx0qhYlszUev MC4w ZWZzhuyys109HxCal8 xkIDEwcHQgVGltZXM7 Q60uu1H7HKFwKVZwYG F6nKN8vQ8zvIylxgub bGVm dDsgdmVydGljYWwtYW ciR893YHSosRpcJpRh bXQaJ9lxdfBIEJ7qUn wvdGQ+SXHtGLS8jAzi PSdw XHTogP5bKZZaX0t8Ik TdRtM6LMmkU8LmctB2 IGJvbGQgMTBwdCBUaW 2czanpm9cantviUnZs MDAw LRe8NNs6BKSpuXkxTz XuBTH8FzQ1XBE7rDIq gW0xgPqzqcfwoF4pLy c+RklOOjwvdGQ+PHRk IHN0 dOpoQAuaOEMlhX2kWX CjP7a5PtDqFsY4SQrk S1KyaeI0EZAygQIcDK LumGKXaC2aegivy7gc cjog AxAeBWFyFIy8ZYs8HU FmkSwgFjGpKKW2ZlI5 NTX5sRLtiH0ieMdejv dliN3uFtd+TVJOOjwv dGQ+ FNZxFXI7aBrkQLowGW ZagO4mJAVeU2c8DfPz DiK2LBhgL6ZrphM4FH ZemIClLYOuiWLBkA6l cztj k8tuspynYaMfZEPlXS l7OQu8YPZviPwtPfEk ADI4ImE4YDR0hJHtgF 5zaQcglswxbB3mSzq+ UGF5 QHL6JC41CK31C5GuSw wvdGFibGU+PHRhYmxl IHdpZHRoPScxMDAlJy FvwGplKY5mQb1yCCLn LWNv bGx (more content not included)... Normal [facility] C Bloodon 03-23-2023 C Blood No growth at 5 Days Normal [facility] Comment on above: Performed By: #### [id number] #### [facility] (DEFAULT) [address] [place] [address] Cult,Bloodon 03-23-2023 Cult,Blood Specimen Description .BLOOD Special Requests R HAND 2ML Culture NO GROWTH 5 DAYS Report Status FINAL 03/23/2023 [facility] Comment on above: Performed By: #### R EJEC, HEPXA #### [address] [place] [address] [employer] Equipment [employer]airer: Norman Blake MD Cult,Blood Specimen Description .BLOOD Special Requests L HAND 2ML Culture NO GROWTH 5 DAYS Report Status FINAL 03/23/2023 Normal [facility] Comment on above: Performed By: #### Jam RODAS, IOCAL #### [facility] [employer] [address] [place] [id number] [employer]r: Norman Blake MD Basic Metab w/rfx MGon 03-20 Potassium [Moles/Vol] 3.3 mmol/L Low 3.7-5.3 [facility] Comment on above: Performed By: #### Jam RODAS, IOCAL #### [facility] [employer] [address] [place] [address] [employer]r: Norman Blake MD Anion gap [Moles/Vol] 8 mmol/L Low 9-17 [facility] Comment on above: Performed By: #### Jam RODAS, IOCAL #### [facility] [employer] [address] [place] [address] [employer]r: Norman Blake MD Calcium [Mass/Vol] 7.3 mg/dL Low 8.6-10.4 [facility] Comment on above: Performed By: #### Jam RODAS, IOCAL #### [facility] [employer] [address] [place] [address] [employer]r: Norman Blake MD Chloride [Moles/Vol] 100 mmol/L Normal 98-107 [facility] Comment on above: Performed By: #### Jam RODAS, IOCAL #### [facility] [employer] [address] [place] [address] [employer]r: Norman Blake MD CO2 [Moles/Vol] 28 mmol/L Normal 20-31 [facility] Comment on above: Performed By: #### Jam RODAS, IOCAL #### [facility] [address] [place] [address] [employer]r: Norman Blake MD Creatinine [Mass/Vol] 0.4 mg/dL Low 0.5-0.9 [facility] Comment on above: Performed By: #### Jam RODAS IOCAL #### [employer] [address] [place] [address] [employer]r: Norman Blake MD GFR/1.73 sq M.predicted among non-blacks MDRD (S/P/Bld) [Vol rate/Area] mL/min/{1.73_m2} Normal >60 [facility] Comment on above: Result Comment: These [...] Performed By: #### Jam RODAS IOCAL #### [facility] [address] [place] [address] [employer] Repairer: Norman Blake MD Glucose [Mass/Vol] 226 mg/dL High 70-99 [facility] Comment on above: Performed By: #### Jam RODAS IOCAL #### [facility] [address] [place] [address] [employer]r: Norman Blake MD Sodium [Moles/Vol] 136 mmol/L Normal 135-144 [facility] Comment on above: Performed By: #### Jam RODAS, IOCAL #### [facility] [address] [place] [address] [employer]airer: Norman Blake MD Urea nitrogen [Mass/Vol] 4 mg/dL Low 6-20 [facility] Comment on above: Performed By: #### Jam RODAS IOCAL #### [facility] [address] [place] [address] [employer] Equipment Repairer: Norman Blake MD CBC with Diffon 03-20-2023 Abs. Basophil <0.03 Normal 0.00-0.20 [facility] Comment on above: Performed By: #### R EJEC, HEPXA #### [address] [address] [employer]airer: Norman Blake MD Abs. Eosinophil <0.03 Normal 0.00-0.44 [facility] Comment on above: Performed By: #### R EJEC, HEPXA #### [address] [address] [employer] Repairer: Norman Blake MD Abs.Imm.Granulocyte <0.03 Normal 0.00-0.30 [facility] Comment on above: Performed By: #### R EJEC, HEPXA #### [place] [address] [employer] Equipment Repairer: Norman Blake MD Abs.Neutrophil (Seg) 2.46 k/uL Normal 1.50-8.10 [facility] Comment on above: Performed By: #### R EJEC, HEPXA #### [address] [address] [employer]airer: Norman Blake MD Basophils/100 WBC (Bld) 0 % Normal 0-2 [facility] Comment on above: Performed By: #### R EJEC, HEPXA #### [address] [address] [employer] Equipment Repairer: Norman Blake MD Eosinophils/100 WBC (Bld) 0 % Low 1-4 [facility] Comment on above: Performed By: #### R EJEC, HEPXA #### [address] [address] [employer] Equipment Repairer: Norman Blake MD Erythrocyte distribution width (RBC) [Ratio] 14.7 % High 11.8-14.4 [facility] Comment on above: Performed By: #### R EJEC, HEPXA #### [address] [address] [employer] Repairer: Norman Blake MD Hematocrit (Bld) [Volume fraction] 30.8 % Low 36.3-47.1 [facility] Comment on above: Performed By: #### R EJEC, HEPXA #### [facility] [employer] [address] [place] [address] [employer] Repairer: Norman Blake MD Hemoglobin (Bld) [Mass/Vol] 9.8 g/dL Low 11.9-15. 1 [facility] Comment on above: Performed By: #### R EJEC, HEPXA #### [address] [address] [employer] Repairer: Norman Blake MD Immature granulocytes/100 WBC (Bld) 0 % Normal 0 [facility] Comment on above: Performed By: #### R EJEC, HEPXA #### [place] [address] [employer] Equipment Repairer: Norman Blake MD Lymphocytes (Bld) [#/Vol] 1.66 10*3/uL Normal 1.10-3.7 0 [facility] Comment on above: Performed By: #### R EJEC, HEPXA #### [facility] [employer] [address] [place] [address] [employer] Repairer: Norman Blake MD Lymphocytes/100 WBC (Bld) 38 % Normal 24-43 [facility] Comment on above: Performed By: #### R EJEC, HEPXA #### [facility] [employer] [address] [place] [address] [employer] Equipment Repairer: Norman Blake MD MCH (RBC) [Entitic mass] 24.8 pg Low 25.2-33.5 [facility] Comment on above: Performed By: #### R EJEC, HEPXA #### [place] [address] [employer] Equipment Repairer: Norman Blake MD MCHC (RBC) [Mass/Vol] 31.8 g/dL Normal 28.4-34.8 [facility] Comment on above: Performed By: #### R EJEC, HEPXA #### [place] [address] [employer] Equipment Repairer: Norman Blake MD MCV (RBC) [Entitic vol] 78.0 fL Low 82.6-102.9 [facility] Comment on above: Performed By: #### R EJEC, HEPXA #### [place] [address] [employer] Equipment Repairer: Norman Blake MD Monocytes (Bld) [#/Vol] 0.25 10*3/uL Normal 0.10-1.20 [facility] Comment on above: Performed By: #### R EJEC, HEPXA #### [place] [address] [employer] Equipment Repairer: Norman Blake MD Monocytes/100 WBC (Bld) 6 % Normal 3-12 [facility] Comment on above: Performed By: #### R EJEC, HEPXA #### [place] [address] [employer] Equipment Repairer: Norman Blake MD Neutrophil (Seg) 56 % Normal 36-65 [facility] Comment on above: Performed By: #### R EJEC, HEPXA #### [place] [address] [employer] Equipment Repairer: Normna Blake MD NRBC Automated 0.0 per 100 WBC Normal 0.0 [facility] Comment on above: Performed By: #### R EJEC, HEPXA #### [address] [address] [employer] Equipment Repairer: Norman Blake MD Platelet mean volume (Bld) [Entitic vol] 10.5 fL Normal 8.1-13.5 [facility] Comment on above: Performed By: #### R EJEC, HEPXA #### [address] [address] [employer] Repairer: Norman Blake MD Platelets (Bld) [#/Vol] 154 10*3/uL Normal 138-453 [facility] Comment on above: Performed By: #### R EJEC, HEPXA #### [address] [address] [employer] Equipment Repairer: Norman Blake MD RBC (Bld) [#/Vol] 3.95 10*6/uL Normal 3.95-5.11 [facility] Comment on above: Performed By: #### R EJEC, HEPXA #### [address] [address] [employer] Equipment Repairer: Norman Blake MD RBC morphology finding Nom (Bld) ANISOCYTOSIS PRESENT Normal [facility] Comment on above: Result Comment: MICR OCYTOSIS PRESENT Performed By: #### R EJEC, HEPXA #### [address] [address] [employer] Equipment Repairer: Norman Blake MD WBC (Bld) [#/Vol] 4.4 10*3/uL Normal 3.5-11.3 [facility] Comment on above: Performed By: #### R EJEC, HEPXA #### [address] [address] [employer] Equipment Repairer: Norman Blake MD Heparin Anti-Xaon 03-20-2023 Heparin Anti-Xa 0.46 IU/L Normal [facility] Comment on above: Performed By: #### R EJEC, HEPXA #### [facility] [address] [place] [address] Tower Equipment Repairer: Norman Blake MD Magnesiumon 03-20-2023 Magnesium [Mass/Vol] 2.0 mg/dL Normal 1.6-2.6 [facility] Comment on above: Performed By: #### D CLARK, IOCAL #### [facility] [address] [place] [address] [employer] Repairer: Norman Blake MD Troponinon 03-20-2023 Troponin, High Sens 295 ng/L Critically high 0-14 [facility] Comment on above: Result Comment: High Sensitivity Troponin values cannot be compared with other Troponin methodologies. Previous Alert Value Reported Performed By: #### D CLARK, IOCAL #### [facility] [address] [place] [phone] Tower Equipment Repairer: Norman Blake MD Troponin, High Sens 308 ng/L Critically high 0-14 [facility] Comment on above: Result Comment: High Sensitivity Troponin values cannot be compared with other Troponin methodologies. Previous Alert Value Reported Performed By: #### R YURI, HEPXA #### [facility] [address] [place] [address] Tower Equipment Repairer: Norman Blake MD Basic Metabolic Profon 03-19 Potassium [Moles/Vol] 2.7 mmol/L Critically low 3.7-5.3 [facility] Comment on above: Performed By: #### H EPXA, TROPI, CDP, BMP #### [facility] [address] [place] [address] [employer] Equipment Repairer: oNrman Blake MD Anion gap [Moles/Vol] 8 mmol/L Low 9-17 [facility] Comment on above: Performed By: #### H EPXA, TROPI, CDP, BMP #### [facility] [address] [place] [address] [employer] Repairer: Norman Blake MD Calcium [Mass/Vol] 6.0 mg/dL Low 8.6-10.4 [facility] Comment on above: Performed By: #### H EPXA, TROPI, CDP, BMP #### [facility] [address] [place] [address] 29790 Tower Equipment Repairer: Norman Blake MD Chloride [Moles/Vol] 101 mmol/L Normal 98-107 [facility] Comment on above: Performed By: #### H EPXA, TROPI, CDP, BMP #### [facility] [address] [place] [address] 94487 Tower Equipment Repairer: Norman Blake MD CO2 [Moles/Vol] 25 mmol/L Normal 20-31 [facility] Comment on above: Performed By: #### H EPXA, TROPI, CDP, BMP #### [facility] [address] [place] [address] 40974 Tower Equipment Repairer: Norman Blake MD Creatinine [Mass/Vol] 0.3 mg/dL Low 0.5-0.9 [facility] Comment on above: Performed By: #### H EPXA, TROPI, CDP, BMP #### [facility] [address] [place] [address] 05752 Tower Equipment Repairer: Norman Blake MD GFR/1.73 sq M.predicted among non-blacks MDRD (S/P/Bld) [Vol rate/Area] mL/min/{1.73_m2} Normal >60 [facility] Comment on above: Result Comment: These [...] #### H EPXA, TROPI, CDP, BMP #### [employer] [address] [place] [address] 12820 Tower Equipment Repairer: Norman Blake MD Glucose [Mass/Vol] 156 mg/dL High 70-99 [facility] Comment on above: Performed By: #### H EPXA, TROPI, CDP, BMP #### [facility] [address] [place] [address] 51633 Tower Equipment Repairer: Norman Blake MD Sodium [Moles/Vol] 134 mmol/L Low 135-144 [facility] Comment on above: Performed By: #### H EPXA, TROPI, CDP, BMP #### [facility] [address] [place] [address] 26405 Tower Equipment Repairer: Norman Blake MD Urea nitrogen [Mass/Vol] 4 mg/dL Low 6-20 [facility] Comment on above: Performed By: #### H EPXA, TROPI, CDP, BMP #### [facility] [address] [place] [address] 71654 Tower Equipment Repairer: Norman Blake MD Potassium [Moles/Vol] 2.5 mmol/L Critically low 3.7-5.3 [facility] Comment on above: Performed By: #### H EPXA, TROPI, CDP, BMP #### [facility] [address] [place] [address] 72304 Tower Equipment Repairer: Norman Blake MD Anion gap [Moles/Vol] 7 mmol/L Low 9-17 [facility] Comment on above: Performed By: #### H EPXA, TROPI, CDP, BMP #### [facility] [address] [place] [address] 16312 Tower Equipment Repairer: Norman Blake MD Calcium [Mass/Vol] 6.0 mg/dL Low 8.6-10.4 [facility] Comment on above: Performed By: #### H EPXA, TROPI, CDP, BMP #### [facility] [address] [place] [address] [phone] Tower Equipment Repairer: Norman Blake MD Chloride [Moles/Vol] 100 mmol/L Normal 98-107 [facility] Comment on above: Performed By: #### H EPXA, TROPI, CDP, BMP #### [facility] [address] [place] [address] Tower Equipment Repairer: Norman Blake MD CO2 [Moles/Vol] 23 mmol/L Normal 20-31 [facility] Comment on above: Performed By: #### H EPXA, TROPI, CDP, BMP #### [facility] [address] [place] [address] [phone] Tower Equipment Repairer: Norman Blake MD Creatinine [Mass/Vol] 0.4 mg/dL Low 0.5-0.9 [facility] Comment on above: Performed By: #### H EPXA, TROPI, CDP, BMP #### [facility] [address] [place] [address] 16545 Tower Equipment Repairer: Norman Blake MD GFR/1.73 sq M.predicted among non-blacks MDRD (S/P/Bld) [Vol rate/Area] mL/min/{1.73_m2} Normal >60 [facility] Comment on above: Result Comment: These [...] #### H EPXA, TROPI, CDP, BMP #### [facility] [address] [place], [place] [phone] Tower Equipment Repairer: Norman Blake MD Glucose [Mass/Vol] 240 mg/dL High 70-99 [facility] Comment on above: Performed By: #### H EPXA, TROPI, CDP, BMP #### [facility] [address] [place] [address] 39287 Tower Equipment Repairer: Norman Blake MD Sodium [Moles/Vol] 130 mmol/L Low 135-144 [facility] Comment on above: Performed By: #### H EPXA, TROPI, CDP, BMP #### [facility] [address] [place] [address] [phone] Tower Equipment Repairer: Norman Blake MD Urea nitrogen [Mass/Vol] 6 mg/dL Normal 6-20 [facility] Comment on above: Performed By: #### H EPXA, TROPI, CDP, BMP #### [facility] [address] [place] [address] 62509 Tower Equipment Repairer: Norman Blake MD C Urineon 03-19-2023 C Urine Urine Culture ordered as a result of parameters set on specific urine dip and urine microsopic results. >3 Organisms Consistent with Contamination Recollection suggested. Normal [facility] Comment on above: Performed By: #### 1 [id number], [id number], [id number] ####[facility] (DEFAULT)[address] [place] [address] CBC with Diffon 03-19-2023 Abs. Basophil <0.03 Normal 0.00-0.20 [facility] Comment on above: Performed By: #### H EPXA, TROPI, CDP, BMP #### [facility] [facility] [address] [place] [address] [phone] Tower Equipment Repairer: Norman Blake MD Abs. Eosinophil <0.03 Normal 0.00-0.44 [facility] Comment on above: Performed By: #### H EPXA, TROPI, CDP, BMP #### [facility] [address] [place] [address] 68624 Tower Equipment Repairer: Norman Blake MD Abs.Imm.Granulocyte <0.03 Normal 0.00-0.30 [facility] Comment on above: Performed By: #### H EPXA, TROPI, CDP, BMP #### [facility] [address] [place] [address] 10978 Tower Equipment Repairer: Norman Blake MD Abs.Neutrophil (Seg) 5.63 k/uL Normal 1.50-8.10 [facility] Comment on above: Performed By: #### H EPXA, TROPI, CDP, BMP #### [facility] [address] [place] [address] 46003 Tower Equipment Repairer: Norman Blake MD Basophils/100 WBC (Bld) 0 % Normal 0-2 [facility] Comment on above: Performed By: #### H EPXA, TROPI, CDP, BMP #### [facility] [facility] [address] [place] [address] 67995 Tower Equipment Repairer: Norman Blake MD Eosinophils/100 WBC (Bld) 0 % Low 1-4 [facility] Comment on above: Performed By: #### H EPXA, TROPI, CDP, BMP #### [facility] [address] [place] [address] 72223 Tower Equipment Repairer: Norman Blake MD Erythrocyte distribution width (RBC) [Ratio] 14.0 % Normal 11.8-14.4 [facility] Comment on above: Performed By: #### H EPXA, TROPI, CDP, BMP #### [facility] [facility] [address] [place] [address] 88931 Tower Equipment Repairer: Norman Blake MD Hematocrit (Bld) [Volume fraction] 31.0 % Low 36.3-47.1 [facility] Comment on above: Performed By: #### H EPXA, TROPI, CDP, BMP #### [facility] [address] [place] [address] 27548 Tower Equipment Repairer: Norman Blake MD Hemoglobin (Bld) [Mass/Vol] 10.9 g/dL Low 11.9-15. 1 [facility] Comment on above: Performed By: #### H EPXA, TROPI, CDP, BMP #### [address] [address] Tower Equipment Repairer: Norman Blake MD Immature granulocytes/100 WBC (Bld) 0 % Normal 0 [facility] Comment on above: Performed By: #### H EPXA, TROPI, CDP, BMP #### [address] 83995 Tower Equipment Repairer: Norman Blake MD Lymphocytes (Bld) [#/Vol] 1.34 10*3/uL Normal 1.10-3.7 0 [facility] Comment on above: Performed By: #### H EPXA, TROPI, CDP, BMP #### [address] 71434 Tower Equipment Repairer: Norman Blake MD Lymphocytes/100 WBC (Bld) 18 % Low 24-43 [facility] Comment on above: Performed By: #### H EPXA, TROPI, CDP, BMP #### [address] 14428 Tower Equipment Repairer: Norman Blake MD MCH (RBC) [Entitic mass] 25.8 pg Normal 25.2-33.5 [facility] Comment on above: Performed By: #### H EPXA, TROPI, CDP, BMP #### [address] 89028 Tower Equipment Repairer: Norman Blake MD MCHC (RBC) [Mass/Vol] 35.2 g/dL High 28.4-34.8 [facility] Comment on above: Performed By: #### H EPXA, TROPI, CDP, BMP #### [address] 18819 Tower Equipment Repairer: Norman Blake MD MCV (RBC) [Entitic vol] 73.3 fL Low 82.6-102.9 M [facility] Comment on above: Performed By: #### H EPXA, TROPI, CDP, BMP #### [address] 45537 Tower Equipment Repairer: Norman Blake MD Monocytes (Bld) [#/Vol] 0.41 10*3/uL Normal 0.10-1.20 [facility] Comment on above: Performed By: #### H EPXA, TROPI, CDP, BMP #### [address] 25195 Tower Equipment Repairer: Norman Blake MD Monocytes/100 WBC (Bld) 6 % Normal 3-12 [facility] Comment on above: Performed By: #### H EPXA, TROPI, CDP, BMP #### [address] 60893 Tower Equipment Repairer: Norman Blake MD Neutrophil (Seg) 76 % High 36-65 [facility] Comment on above: Performed By: #### H EPXA, TROPI, CDP, BMP #### [address] 05571 Tower Equipment Repairer: Nroman Blake MD NRBC Automated 0.0 per 100 WBC Normal 0.0 [facility] Comment on above: Performed By: #### H EPXA, TROPI, CDP, BMP #### [facility] [address] [place] [address] 86773 Tower Equipment Repairer: Norman Blake MD Platelet mean volume (Bld) [Entitic vol] 9.5 fL Normal 8.1-13.5 [facility] Comment on above: Performed By: #### H EPXA, TROPI, CDP, BMP #### [facility] [address] [place] [address] 45060 Tower Equipment Repairer: Norman Blake MD Platelets (Bld) [#/Vol] 189 10*3/uL Normal 138-453 [facility] Comment on above: Performed By: #### H EPXA, TROPI, CDP, BMP #### [facility] [address] [place] [address] 78593 Tower Equipment Repairer: Norman Blake MD RBC (Bld) [#/Vol] 4.23 10*6/uL Normal 3.95-5.11 [facility] Comment on above: Performed By: #### H EPXA, TROPI, CDP, BMP #### [facility] [facility] [address] [place] [address] 53232 Tower Equipment Repairer: Norman Blake MD RBC morphology finding Nom (Bld) MICROCYTOSIS PRESENT Normal [facility] Comment on above: Performed By: #### H EPXA, TROPI, CDP, BMP #### [facility] [facility] [address] [place] [address] 78598 Tower Equipment Repairer: Norman Blake MD WBC (Bld) [#/Vol] 7.4 10*3/uL Normal 3.5-11.3 [facility] Comment on above: Performed By: #### H EPXA, TROPI, CDP, BMP #### [address] 99901 Tower Equipment Repairer: Norman Blake MD Abs. Basophil <0.03 Normal 0.00-0.20 [facility] Comment on above: Performed By: #### H EPXA, TROPI, CDP, BMP #### [facility] [address] [place] [address] 53264 Tower Equipment Repairer: Norman Blake MD Abs. Eosinophil <0.03 Normal 0.00-0.44 [facility] Comment on above: Performed By: #### H EPXA, TROPI, CDP, BMP #### [facility] [address] [place] [address] 44509 Tower Equipment Repairer: Norman Blake MD Abs.Imm.Granulocyte <0.03 Normal 0.00-0.30 [facility] Comment on above: Performed By: #### H EPXA, TROPI, CDP, BMP #### [facility] [facility] [address] [place] [address] 81605 Tower Equipment Repairer: Norman Blake MD Abs.Neutrophil (Seg) 7.00 k/uL Normal 1.50-8.10 [facility] Comment on above: Performed By: #### H EPXA, TROPI, CDP, BMP #### [facility] [address] [place] [address] 60925 Tower Equipment Repairer: Norman Blake MD Basophils/100 WBC (Bld) 0 % Normal 0-2 [facility] Comment on above: Performed By: #### H EPXA, TROPI, CDP, BMP #### [facility] [facility] [address] [place] [address] 39728 Tower Equipment Repairer: Norman Blake MD Eosinophils/100 WBC (Bld) 0 % Low 1-4 [facility] Comment on above: Performed By: #### H EPXA, TROPI, CDP, BMP #### [facility] [facility] [address] [place] [address] [phone] Tower Equipment Repairer: Norman Blake MD Erythrocyte distribution width (RBC) [Ratio] 14.2 % Normal 11.8-14.4 [facility] Comment on above: Performed By: #### H EPXA, TROPI, CDP, BMP #### [facility] [facility] [address] [place] [address] 89989 Tower Equipment Repairer: Norman Blake MD Hematocrit (Bld) [Volume fraction] 31.1 % Low 36.3-47.1 [facility] Comment on above: Performed By: #### H EPXA, TROPI, CDP, BMP #### [facility] [address] [place] [address] 96038 Tower Equipment Repairer: Norman Blake MD Hemoglobin (Bld) [Mass/Vol] 10.8 g/dL Low 11.9-15. 1 [facility] Comment on above: Performed By: #### H EPXA, TROPI, CDP, BMP #### [address] 72690 Tower Equipment Repairer: Norman Blake MD Immature granulocytes/100 WBC (Bld) 0 % Normal 0 [facility] Comment on above: Performed By: #### H EPXA, TROPI, CDP, BMP #### [address] 96581 Tower Equipment Repairer: Norman Blake MD Lymphocytes (Bld) [#/Vol] 0.85 10*3/uL Low 1.10-3.7 0 [facility] Comment on above: Performed By: #### H EPXA, TROPI, CDP, BMP #### [address] 00822 Tower Equipment Repairer: Norman Blake MD Lymphocytes/100 WBC (Bld) 10 % Low 24-43 [facility] Comment on above: Performed By: #### H EPXA, TROPI, CDP, BMP #### [facility] [facility] [address] [place] [address] Tower Equipment Repairer: Norman Blake MD MCH (RBC) [Entitic mass] 25.4 pg Normal 25.2-33.5 [facility] Comment on above: Performed By: #### H EPXA, TROPI, CDP, BMP #### [facility] [address] [place] [address] Tower Equipment Repairer: Norman Blake MD MCHC (RBC) [Mass/Vol] 34.7 g/dL Normal 28.4-34.8 [facility] Comment on above: Performed By: #### H EPXA, TROPI, CDP, BMP #### [facility] [facility] [address] [place] [address] 53666 Tower Equipment Repairer: Norman Blake MD MCV (RBC) [Entitic vol] 73.2 fL Low 82.6-102.9 [facility] Comment on above: Performed By: #### H EPXA, TROPI, CDP, BMP #### [address] [address] Tower Equipment Repairer: Norman Blake MD Monocytes (Bld) [#/Vol] 0.44 10*3/uL Normal 0.10-1.20 [facility] Comment on above: Performed By: #### H EPXA, TROPI, CDP, BMP #### [facility] [facility] [address] [place] [address] 35044 Tower Equipment Repairer: Norman Blake MD Monocytes/100 WBC (Bld) 5 % Normal 3-12 [facility] Comment on above: Performed By: #### H EPXA, TROPI, CDP, BMP #### [address] [address] Tower Equipment Repairer: Norman Blake MD Neutrophil (Seg) 84 % High 36-65 [facility] Comment on above: Performed By: #### H EPXA, TROPI, CDP, BMP #### [facility] [address] [place] [address] 47562 Tower Equipment Repairer: Norman Blake MD NRBC Automated 0.0 per 100 WBC Normal 0.0 [facility] Comment on above: Performed By: #### H EPXA, TROPI, CDP, BMP #### [facility] [address] [place] [address] 06873 Tower Equipment Repairer: Norman Blake MD Platelet mean volume (Bld) [Entitic vol] 9.5 fL Normal 8.1-13.5 [facility] Comment on above: Performed By: #### H EPXA, TROPI, CDP, BMP #### [facility] [address] [place] [address] 14622 Tower Equipment Repairer: Norman Blake MD Platelets (Bld) [#/Vol] 194 10*3/uL Normal 138-453 [facility] Comment on above: Performed By: #### H EPXA, TROPI, CDP, BMP #### [address] 90558 Tower Equipment Repairer: Norman Blake MD RBC (Bld) [#/Vol] 4.25 10*6/uL Normal 3.95-5.11 [facility] Comment on above: Performed By: #### H EPXA, TROPI, CDP, BMP #### [facility] [address] [place] [address] [phone] Tower Equipment Repairer: Norman Blake MD RBC morphology finding Nom (Bld) MICROCYTOSIS PRESENT Normal [facility] Comment on above: Performed By: #### H EPXA, TROPI, CDP, BMP #### [address] 0[address]4 Tower Equipment Repairer: Norman Blake MD WBC (Bld) [#/Vol] 8.3 10*3/uL Normal 3.5-11.3 [facility] Comment on above: Performed By: #### H EPXA, TROPI, CDP, BMP #### [facility] [address] [place] [address] [phone] Tower Equipment Repairer: Norman Blake MD Cult,Urineon 03-19-2023 Cult,Urine Specimen Description .CLEAN CATCH URINE Culture NO GROWTH Report Status FINAL 03/19/2023 Normal [facility] Comment on above: Performed By: #### U RC #### [address] [address] Tower Equipment Repairer: Norman Blake MD Electrolyteson 03-19-2023 Anion gap [Moles/Vol] 10 mmol/L Normal 9-17 [facility] Comment on above: Performed By: #### D CLARK, IOCAL #### [address] [address] Tower Equipment Repairer: Norman Blake MD Chloride [Moles/Vol] 94 mmol/L Low 98-107 [facility] Comment on above: Performed By: #### Jam RODAS IOCAL #### [facility] [address] [place] [address] 19864 Tower Equipment Repairer: Norman Blake MD CO2 [Moles/Vol] 25 mmol/L Normal 20-31 [facility] Comment on above: Performed By: #### Jam RODAS IOCAL #### [facility] [address] [place] [address] 64701 Tower Equipment Repairer: Norman Blake MD Potassium [Moles/Vol] 3.5 mmol/L Low 3.7-5.3 [facility] Comment on above: Performed By: #### Jam RODAS IOCAL #### [facility] [address] [place] [address] 76107 Tower Equipment Repairer: Norman Blake MD Sodium [Moles/Vol] 129 mmol/L Low 135-144 [facility] Comment on above: Performed By: #### Jam RODAS IOCAL #### [facility] [address] [place] [address] 35421 Tower Equipment Repairer: Norman Blake MD Anion gap [Moles/Vol] 11 mmol/L Normal 9-17 [facility] Comment on above: Performed By: #### H EPXA TROPI, CDP, BMP #### [facility] [address] [place] [address] 43401 Tower Equipment Repairer: Norman Blake MD Chloride [Moles/Vol] 95 mmol/L Low 98-107 [facility] Comment on above: Performed By: #### H EPXA, TROPI, CDP, BMP #### [facility] [address] [place] [address] 89432 Tower Equipment Repairer: Norman Blake MD CO2 [Moles/Vol] 24 mmol/L Normal 20-31 [facility] Comment on above: Performed By: #### H EPXA, TROPI, CDP, BMP #### [address] [address]56 Tower Equipment Repairer: Norman Blake MD Potassium [Moles/Vol] 3.4 mmol/L Low 3.7-5.3 [facility] Comment on above: Performed By: #### H EPXA, TROPI, CDP, BMP #### [address] [address] Tower Equipment Repairer: Norman Blake MD Sodium [Moles/Vol] 130 mmol/L Low 135-144 [facility] Comment on above: Performed By: #### H EPXA, TROPI, CDP, BMP #### [address] 8[address]56 Tower Equipment Repairer: Norman Blake MD Heparin Anti-Xaon 03-19-2023 Heparin Anti-Xa 0.37 IU/L [facility] Comment on above: Performed By: #### R EJEC, HEPXA #### [address] [address]2657 Tower Equipment Repairer: Norman Blake MD Heparin Anti-Xa 0.40 IU/L [facility] Comment on above: Performed By: #### H EPXA, TROPI, CDP, BMP #### [address] 02033 Tower Equipment Repairer: Norman Blake MD Heparin Anti-Xa 0.16 IU/L [facility] Comment on above: Performed By: #### H EPXA, TROPI, CDP, BMP #### [facility] [address] [place] [address] 15702 Tower Equipment Repairer: Norman Blake MD Heparin Anti-Xa 0.12 IU/L [facility] Comment on above: Performed By: #### H EPXA, TROPI, CDP, BMP #### [facility] [address] [place] [address] Tower Equipment Repairer: Norman Blake MD MRSA, DNA, Nasalon MRSA, DNA, Nasal Negative Normal NEG [facility] Comment on above: Result Comment: NEGA [...] #### D CLARK, IOCAL #### [facility] [address] [place] [address] 21143 Tower Equipment Repairer: Norman Blake MD Magnesiumon 03-19-2023 Magnesium [Mass/Vol] 1.9 mg/dL Normal 1.6-2.6 [facility] Comment on above: Performed By: #### Jam CLARK, IOCAL #### [facility] [address] [place] [address] 95495 Tower Equipment Repairer: Norman Blake MD Magnesium [Mass/Vol] 1.9 mg/dL Normal 1.6-2.6 [facility] Comment on above: Performed By: #### H EPXA, TROPI, CDP, BMP #### [facility] [address] [place] [address] 36601 Tower Equipment Repairer: Norman Blake MD Magnesium [Mass/Vol] 2.0 mg/dL Normal 1.6-2.6 [facility] Comment on above: Performed By: #### R EJEC, HEPXA #### [facility] [address] [place] [address] [phone] Tower Equipment Repairer: Norman Blake MD Magnesium [Mass/Vol] 2.0 mg/dL Normal 1.6-2.6 [facility] Comment on above: Performed By: #### Jam CLARK, IOCAL #### [facility] [address] [place] [address] 33245 Tower Equipment Repairer: Norman Blake MD Magnesium [Mass/Vol] 1.6 mg/dL Normal 1.6-2.6 [facility] Comment on above: Performed By: #### H EPXA, TROPI, CDP, BMP #### [facility] [address] [place] [address] 49580 Tower Equipment Repairer: Norman Blake MD Phosphorus, Inorg.on 023 Phosphorus, Inorg. 1.7 mg/dL Low 2.6-4.5 [facility] Comment on above: Performed By: #### D CLARK IOCAL #### [facility] [address] [place] [address] 81731 Tower Equipment Repairer: Norman Blake MD Phosphorus, Inorg. 1.5 mg/dL Low 2.6-4.5 [facility] Comment on above: Performed By: #### H EPXA, TROPI, CDP, BMP #### [facility] [address] [place] [address] 89779 Tower Equipment Repairer: Norman Blake MD Phosphorus, Inorg. 1.3 mg/dL Low 2.6-4.5 [facility] Comment on above: Performed By: #### R EJEC, HEPXA #### [facility] [address] [place] [address] 91561 Tower Equipment Repairer: Norman Blake MD Phosphorus, Inorg. 1.1 mg/dL Low 2.6-4.5 [facility] Comment on above: Performed By: #### D CLARK, IOCAL #### [facility] [address] [place] [address] 09978 Tower Equipment Repairer: Norman Blake MD Phosphorus, Inorg. 0.7 mg/dL Critically low 2.6-4.5 [facility] Comment on above: Performed By: #### H EPXA, TROPI, CDP, BMP #### [facility] [address] [place] [address] 57223 Tower Equipment Repairer: Norman Blake MD Troponinon 03-19-2023 Troponin, High Sens 328 ng/L Critically high 0-14 [facility] Comment on above: Result Comment: High Sensitivity Troponin values cannot be compared with other Troponin methodologies. Previous Alert Value Reported Performed By: #### D CLARK, IOCAL #### [facility] [address] [place] [address] Tower Equipment Repairer: Norman Blake MD Troponin, High Sens 389 ng/L Critically high 0-14 [facility] Comment on above: Result Comment: High Sensitivity Troponin values cannot be compared with other Troponin methodologies. Previous Alert Value Reported Performed By: #### H EPXA, TROPI, CDP, BMP #### [facility] [address] [place] [address] 33905 Tower Equipment Repairer: Norman Blake MD Troponin, High Sens 481 ng/L Critically high 0-14 [facility] Comment on above: Result Comment: High Sensitivity Troponin values cannot be compared with other Troponin methodologies. Previous Alert Value Reported Performed By: #### H EPXA, TROPI, CDP, BMP #### [facility] [address] [place] [address] 93240 Tower Equipment Repairer: Norman Blake MD Troponin, High Sens 649 ng/L Critically high 0-14 [facility] Comment on above: Result Comment: High Sensitivity Troponin values cannot be compared with other Troponin methodologies. Previous Alert Value Reported Performed By: #### H EPXA, TROPI, CDP, BMP #### [facility] [address] [place] [address] 76713 Tower Equipment Repairer: Norman Blake MD Venous Blood Gaseson 023 Body Temp. 37.0 Normal [facility] Comment on above: Performed By: #### D CLARK, IOCAL #### [facility] [address] [place] [address] 06346 Tower Equipment Repairer: Norman Blake MD Carboxy Hgb 1.1 % Normal 0-5 [facility] Comment on above: Result Comment: Reference Range: Non-Smokers 0-2% Average Smoker 2-4% Heavy Smoker <10% Performed By: #### Jam RODAS IOCAL #### [facility] [address] [place] [address] 91827 Tower Equipment Repairer: Norman Blake MD FIO2 Unknown Normal [facility] Comment on above: Performed By: #### Jam RODAS, IOCAL #### [facility] [address] [place] [address] 75897 Tower Equipment Repairer: Norman Blake MD HCO3 (Bld) [Moles/Vol] 25.9 mmol/L Normal 24-30 [facility] Comment on above: Performed By: #### Jam RODAS, IOCAL #### [facility] [employer] [address] [place] [address] 42733 Tower Equipment Repairer: Norman Blake MD Oxygen saturation in Blood 97.3 % High 60.0-85.0 [facility] Comment on above: Performed By: #### Jam RODAS IOCAL #### [facility] [employer] [address] [place] [address] 38899 Tower Equipment Repairer: Norman Blake MD pCO2 40.3 mm Hg Normal 39-55 [facility] Comment on above: Performed By: #### Jam RODAS, IOCAL #### [facility] [address] [place] [address] 75889 Tower Equipment Repairer: Norman Blake MD pH (Bld) 7.424 [pH] High 7.320-7.420 [facility] Comment on above: Performed By: #### Jam RODAS, IOCAL #### [facility] [address] [place] [address] 16056 Tower Equipment Repairer: Norman Blake MD pO2 128.0 mm Hg High 30-50 [facility] Comment on above: Performed By: #### Jam PHILLIPSE, IOCAL #### [facility] [employer] [facility] [place], [place] [id number] Tower Equipment Repairer: Norman Blake MD Positive Base Excess 1.8 mmol/L Normal 0.0-2.0 [facility] Comment on above: Performed By: #### D CLARK, IOCAL #### [address] [id number] Tower Equipment Repairer: Norman Blake MD APTTon 03-18-2023 aPTT Coag (Bld) [Time] 20.5 s Low 23.0-36.5 [facility] Comment on above: Result Comment: IV Heparin Therapy Range: 66.0-92.0 sec Performed By: #### R EJEC, HEPXA #### [facility] [employer] [address] [place] [address] [phone] Tower Equipment Repairer: Norman Blake MD Arterial Blood Gas Standardo 03-18-2023 Cami Test Art Positive Normal [facility] Comment on above: Performed By: #### 4 [id number] #### [facility] (DEFAULT) [address] [place] [address] 80187 [employer] [facility] Comment on above: Performed By: #### 4 [id number] #### [facility] (DEFAULT) [address] [place] [address] 09712 Device Room Air Normal [facility] Comment on above: Performed By: #### 4 [id number] #### [facility] (DEFAULT) [address] [place] [address] 63086 Fio2 Art 21.0 % Normal 21.0-100.0 [facility] Comment on above: Performed By: #### 4 [id number] #### [facility] (DEFAULT) [address] [place] [address] 02532 Oxygen saturation in Blood 96.9 % Normal 95.0-100. 0 [facility] Comment on above: Performed By: #### 4 [id number] #### [facility] (DEFAULT) [address] [place] [address] 00447 pH Art 6.89 Critically abnormal 7.37-7.44 [facility] Comment on above: Result Comment: Crit ical pH results and PCO2 result will not calculate due to it being < 9.5 results given to Radha Cintron @2318 03/18/2023 per Anjana Garcia [employer] WORK[employer]PER. RBV Performed By: #### 4 [id number] #### [facility] (DEFAULT) [address] [place] [address] 35673 pO2 Art 144 mmHg High 75-100 [facility] Comment on above: Performed By: #### 4 [id number] #### [facility] (DEFAULT) [address] [place] [address] 69899 Puncture Site Right Radial Normal [facility] Comment on above: Performed By: #### 4 [id number] #### [facility] (DEFAULT) [address] [place] [address] 31086 Rate: 38 Invalid Interpretation Code [facility] Comment on above: Performed By: #### 4 [id number] #### [facility] (DEFAULT) [address] [place] [address] 57676 BNP.on 03-18-2023 Natriuretic peptide B (Bld) [Mass/Vol] 170.0 pg/mL High 0.0-100.0 [facility] Comment on above: Result Comment: BNP results greater than 100 pg/mL are considered abnormal and suggestive of patients with CHF. Higher BNP concentrations measured in the first 72 hours after an acute coronary syndorme are associated with an increased risk of , myocardial infarction, and CHF. Performed By: #### 3 [id number], [id number] ####[facility] (DEFAULT)[address] [place] [address] 77318 Basic Metabolic Profon 03-18 Potassium [Moles/Vol] 2.2 mmol/L Critically low 3.7-5.3 [facility] Comment on above: Performed By: #### D CLARK, IOCAL #### [facility] [employer] [address] [place], [place] [phone] Tower Equipment Repairer: Norman Blake MD Anion gap [Moles/Vol] 11 mmol/L Normal 9-17 [facility] Comment on above: Performed By: #### Jam RODAS IOCAL #### [facility] [employer] [address] [place] [address] 60948 Tower Equipment Repairer: Norman Blake MD Calcium [Mass/Vol] 6.4 mg/dL Low 8.6-10.4 [facility] Comment on above: Performed By: #### Jam RODAS IOCAL #### [facility] [employer] [address] [place] [address] 45860 Tower Equipment Repairer: Norman Blake MD Chloride [Moles/Vol] 101 mmol/L Normal 98-107 [facility] Comment on above: Performed By: #### Jam RODAS IOCAL #### [facility] [employer] [address] [place] [address] 27982 Tower Equipment Repairer: Norman Blake MD CO2 [Moles/Vol] 19 mmol/L Low 20-31 [facility] Comment on above: Performed By: #### Jam RODAS IOCAL #### [facility] [employer] [address] [place] [address] 29082 Tower Equipment Repairer: Norman Blake MD Creatinine [Mass/Vol] 0.4 mg/dL Low 0.5-0.9 [facility] Comment on above: Performed By: #### Jam RODAS IOCAL #### [facility] [employer] [address] [place] [address] 02734 Tower Equipment Repairer: Norman Blake MD GFR/1.73 sq M.predicted among non-blacks MDRD (S/P/Bld) [Vol rate/Area] mL/min/{1.73_m2} Normal >60 [facility] Comment on above: Result Comment: These [...] secretion. Performed By: #### IRAIDA DUBOISCAL #### [facility] [address] [place] [address] 74220 Tower Equipment Repairer: Norman Blake MD Glucose [Mass/Vol] 149 mg/dL High 70-99 [facility] Comment on above: Performed By: #### Jam RODAS IOCAL #### [facility] [address] [place] [address] 46817 Tower Equipment Repairer: Norman Blake MD Sodium [Moles/Vol] 131 mmol/L Low 135-144 [facility] Comment on above: Performed By: #### Jam RODAS IOCAL #### [facility] [address] [place] [address] 33952 Tower Equipment Repairer: Norman Blake MD Urea nitrogen [Mass/Vol] 8 mg/dL Normal 6-20 [facility] Comment on above: Performed By: #### Jam RODAS IOCAL #### [facility] [address] [place] [address] 99422 Tower Equipment Repairer: Norman Blake MD Potassium [Moles/Vol] 2.5 mmol/L Critically low 3.7-5.3 [facility] Comment on above: Result Comment: TEST CONFIRMED Performed By: #### Jose WELCH, HEPXA #### [facility] [address] [place] [address] [phone] Tower Equipment Repairer: Norman Blake MD Anion gap [Moles/Vol] 12 mmol/L Normal 9-17 [facility] Comment on above: Performed By: #### Jose EJEC, HEPXA #### [facility] [address] [place] [address] 42113 Tower Equipment Repairer: Norman Blake MD Calcium [Mass/Vol] 6.5 mg/dL Low 8.6-10.4 [facility] Comment on above: Performed By: #### R EJEC, HEPXA #### [facility] [address] [place] [address] 42150 Tower Equipment Repairer: Norman Blake MD Chloride [Moles/Vol] 104 mmol/L Normal 98-107 [facility] Comment on above: Performed By: #### R EJEC, HEPXA #### [facility] [address] [place] [address] 66177 Tower Equipment Repairer: Norman Blake MD CO2 [Moles/Vol] 13 mmol/L Low 20-31 [facility] Comment on above: Performed By: #### R EJEC, HEPXA #### [address] [address] Tower Equipment Repairer: Norman Blaek MD Creatinine [Mass/Vol] 0.5 mg/dL Normal 0.5-0.9 [facility] Comment on above: Performed By: #### R EJEC, HEPXA #### [address] 75244 Tower Equipment Repairer: Norman Blake MD GFR/1.73 sq M.predicted among non-blacks MDRD (S/P/Bld) [Vol rate/Area] mL/min/{1.73_m2} Normal >60 [facility] Comment on above: Result Comment: These [...] Performed By: #### R EJEC, HEPXA #### [address] 89338 Tower Equipment Repairer: Norman Blake MD Glucose [Mass/Vol] 219 mg/dL High 70-99 [facility] Comment on above: Performed By: #### R EJEC, HEPXA #### [facility] [employer] [address] [place] [address] 93420 Tower Equipment Repairer: Norman Blake MD Sodium [Moles/Vol] 129 mmol/L Low 135-144 [facility] Comment on above: Performed By: #### R EJEC, HEPXA #### [facility] [employer] [address] [place] [address] 57424 Tower Equipment Repairer: Norman Blake MD Urea nitrogen [Mass/Vol] 10 mg/dL Normal 6-20 [facility] Comment on above: Performed By: #### R EJEC, HEPXA #### [facility] [employer] [address] [place] [address] 59448 Tower Equipment Repairer: Norman lBake MD Anion gap [Moles/Vol] 18 mmol/L High 9-17 [facility] Comment on above: Performed By: #### R EJEC, HEPXA #### [address] [address]152 Tower Equipment Repairer: Norman Blake MD CO2 [Moles/Vol] 7 mmol/L Critically low 20-31 [facility] Comment on above: Performed By: #### R EJEC, HEPXA #### [facility] [employer] [address] [place] [address] 41148 Tower Equipment Repairer: Norman Blake MD Calcium [Mass/Vol] 6.5 mg/dL Low 8.6-10.4 [facility] Comment on above: Performed By: #### R EJEC, HEPXA #### [facility] [employer] [address] [place] [address] 27191 Tower Equipment Repairer: Norman Blake MD Chloride [Moles/Vol] 105 mmol/L Normal 98-107 [facility] Comment on above: Performed By: #### R EJEC, HEPXA #### [employer] [address] [place] [address] 52547 Tower Equipment Repairer: Norman Blake MD Creatinine [Mass/Vol] 0.7 mg/dL Normal 0.5-0.9 [facility] Comment on above: Performed By: #### R EJEC, HEPXA #### [facility] [employer] [address] [place] [address] 62392 Tower Equipment Repairer: Norman Blake MD GFR/1.73 sq M.predicted among non-blacks MDRD (S/P/Bld) [Vol rate/Area] mL/min/{1.73_m2} Normal >60 [facility] Comment on above: Result Comment: These [...] Performed By: #### R EJEC, HEPXA #### [facility] [employer] [address] [place] [address] 95647 Tower Equipment Repairer: Norman Blake MD Glucose [Mass/Vol] 267 mg/dL High 70-99 [facility] Comment on above: Performed By: #### R EJEC, HEPXA #### [facility] [employer] [address] [place] [address] 64739 Tower Equipment Repairer: Norman Blake MD Potassium [Moles/Vol] 3.8 mmol/L Normal 3.7-5.3 [facility] Comment on above: Performed By: #### R EJEC, HEPXA #### [facility] [employer] [address] [place] [address] 58582 Tower Equipment Repairer: Norman Blake MD Sodium [Moles/Vol] 130 mmol/L Low 135-144 [facility] Comment on above: Performed By: #### R EJEC, HEPXA #### [facility] [address] [place] [address] Tower Equipment Repairer: Norman Blake MD Urea nitrogen [Mass/Vol] 15 mg/dL Normal 6-20 [facility] Comment on above: Performed By: #### R EJEC, HEPXA #### [address] [address]26 Tower Equipment Repairer: Norman Blake MD Anion Gap Unable to calculate anion gap due to CO2 less than 6. Normal 9-17 [facility] Comment on above: Performed By: #### H EPXA, TROPI, CDP, BMP #### [facility] [employer] [address] [place] [address] 77887 Tower Equipment Repairer: Norman Blake MD Calcium [Mass/Vol] 6.4 mg/dL Low 8.6-10.4 [facility] Comment on above: Performed By: #### H EPXA, TROPI, CDP, BMP #### [facility] [address] [place] [address] 28155 Tower Equipment Repairer: Norman Blake MD Chloride [Moles/Vol] 104 mmol/L Normal 98-107 [facility] Comment on above: Performed By: #### H EPXA, TROPI, CDP, BMP #### [facility] [employer] [address] [place] [address] 39171 Tower Equipment Repairer: Norman Blake MD CO2 [Moles/Vol] mmol/L Critically low 20-31 [facility] Comment on above: Performed By: #### H EPXA, TROPI, CDP, BMP #### [facility] [employer] [address] [place] [address] 98538 Tower Equipment Repairer: Norman Blake MD Creatinine [Mass/Vol] 0.7 mg/dL Normal 0.5-0.9 [facility] Comment on above: Performed By: #### H EPXA, TROPI, CDP, BMP #### [facility] [address] [address] Tower Equipment Repairer: Norman Blake MD GFR/1.73 sq M.predicted among non-blacks MDRD (S/P/Bld) [Vol rate/Area] mL/min/{1.73_m2} Normal >60 [facility] Comment on above: Result Comment: These [...] #### H EPXA, TROPI, CDP, BMP #### [facility] [address] [place] [address] 50687 Tower Equipment Repairer: Norman Blake MD Glucose [Mass/Vol] 254 mg/dL High 70-99 [facility] Comment on above: Performed By: #### H EPXA, TROPI, CDP, BMP #### [facility] [employer] [address] [place] [address] 32954 Tower Equipment Repairer: Norman Blake MD Potassium [Moles/Vol] 3.8 mmol/L Normal 3.7-5.3 [facility] Comment on above: Performed By: #### H EPXA, TROPI, CDP, BMP #### [facility] [address] [place] [address] 00114 Tower Equipment Repairer: Norman Blake MD Sodium [Moles/Vol] 129 mmol/L Low 135-144 [facility] Comment on above: Performed By: #### H EPXA, TROPI, CDP, BMP #### [facility] [address] [place] [address] 69185 Tower Equipment Repairer: Norman Blake MD Urea nitrogen [Mass/Vol] 17 mg/dL Normal 6-20 [facility] Comment on above: Performed By: #### H EPXA, TROPI, CDP, BMP #### [facility] [address] [place] [address] 08077 Tower Equipment Repairer: Norman Blake MD Beta Hydroxybutyrateon 03-18 Beta Hydroxybutyrate 3.84 mmol/L High 0.02-0.27 [facility] Comment on above: Performed By: #### H EPXA, TROPI, CDP, BMP #### [address] [address] Tower Equipment Repairer: Norman Blake MD CBCon 03-18-2023 Erythrocyte distribution width (RBC) [Ratio] 14.2 % Normal 11.8-14.4 [facility] Comment on above: Performed By: #### R EJEC, HEPXA #### [address] 9[address]69 Tower Equipment Repairer: Norman Blake MD Hematocrit (Bld) [Volume fraction] 37.1 % Normal 36.3-47.1 [facility] Comment on above: Performed By: #### R EJEC, HEPXA #### [address] [address] Tower Equipment Repairer: Norman Blake MD Hemoglobin (Bld) [Mass/Vol] 11.7 g/dL Low 11.9-15. 1 [facility] Comment on above: Performed By: #### R EJEC, HEPXA #### [address] [address]51 Tower Equipment Repairer: Norman Blake MD MCH (RBC) [Entitic mass] 24.9 pg Low 25.2-33.5 [facility] Comment on above: Performed By: #### R EJEC, HEPXA #### [facility] [address] [place] [address] 35672 Tower Equipment Repairer: Norman Blake MD MCHC (RBC) [Mass/Vol] 31.5 g/dL Normal 28.4-34.8 [facility] Comment on above: Performed By: #### R EJEC, HEPXA #### [address] [address]73 Tower Equipment Repairer: Norman Blake MD MCV (RBC) [Entitic vol] 79.1 fL Low 82.6-102.9 [facility] Comment on above: Performed By: #### R EJEC, HEPXA #### [address] [address] Tower Equipment Repairer: Norman Blake MD NRBC Automated 0.0 per 100 WBC Normal 0.0 [facility] Comment on above: Performed By: #### R EJEC, HEPXA #### [address] [address] Tower Equipment Repairer: Norman Blake MD Platelet mean volume (Bld) [Entitic vol] 10.0 fL Normal 8.1-13.5 [facility] Comment on above: Performed By: #### R EJEC, HEPXA #### [address] [address] Tower Equipment Repairer: Norman Blake MD Platelets (Bld) [#/Vol] 232 10*3/uL Normal 138-453 [facility] Comment on above: Performed By: #### R EJEC, HEPXA #### [address] [address] Tower Equipment Repairer: Norman Blake MD RBC (Bld) [#/Vol] 4.69 10*6/uL Normal 3.95-5.11 [facility] Comment on above: Performed By: #### R EJEC, HEPXA #### [address] 02027 Tower Equipment Repairer: Norman Blake MD WBC (Bld) [#/Vol] 16.6 10*3/uL High 3.5-11.3 [facility] Comment on above: Performed By: #### R EJEC, HEPXA #### [place] [address] Tower Equipment Repairer: Norman Blake MD CBC with Diffon 03-18-2023 Abs. Basophil 0.03 k/uL Normal 0.00-0.20 [facility] Comment on above: Performed By: #### H EPXA, TROPI, CDP, BMP #### [place] [address] Tower Equipment Repairer: Norman Blake MD Abs.Imm.Granulocyte 0.11 k/uL Normal 0.00-0.30 [facility] Comment on above: Performed By: #### H EPXA, TROPI, CDP, BMP #### [place] [address] Tower Equipment Repairer: Norman Blake MD Abs.Neutrophil (Seg) 16.38 k/uL High 1.50-8.10 [facility] Comment on above: Performed By: #### H EPXA, TROPI, CDP, BMP #### [place] [address] Tower Equipment Repairer: Norman Blake MD Basophils/100 WBC (Bld) 0 % Normal 0-2 [facility] Comment on above: Performed By: #### H EPXA, TROPI, CDP, BMP #### [place] [address] Tower Equipment Repairer: Norman Blake MD Eosinophils (Bld) [#/Vol] 0.06 10*3/uL Normal 0.00-0.4 4 [facility] Comment on above: Performed By: #### H EPXA, TROPI, CDP, BMP #### [place] [address] Tower Equipment Repairer: Norman Blake MD Eosinophils/100 WBC (Bld) 0 % Low 1-4 [facility] Comment on above: Performed By: #### H EPXA, TROPI, CDP, BMP #### [facility] [employer] [address] [place] [address] 53843 Tower Equipment Repairer: Norman Blake MD Erythrocyte distribution width (RBC) [Ratio] 13.9 % Normal 11.8-14.4 [facility] Comment on above: Performed By: #### H EPXA, TROPI, CDP, BMP #### [facility] [address] [place] [address] 04306 Tower Equipment Repairer: Norman Blake MD Hematocrit (Bld) [Volume fraction] 36.6 % Normal 36.3-47.1 [facility] Comment on above: Performed By: #### H EPXA, TROPI, CDP, BMP #### [facility] [employer] [address] [place] [address] 77648 Tower Equipment Repairer: Norman Blake MD Hemoglobin (Bld) [Mass/Vol] 11.8 g/dL Low 11.9-15. 1 [facility] Comment on above: Performed By: #### H EPXA, TROPI, CDP, BMP #### [facility] [address] [place] [address] 76419 Tower Equipment Repairer: Norman Blake MD Immature granulocytes/100 WBC (Bld) 1 % High 0 [facility] Comment on above: Performed By: #### H EPXA, TROPI, CDP, BMP #### [facility] [address] [place] [address] 11790 Tower Equipment Repairer: Norman Blake MD Lymphocytes (Bld) [#/Vol] 2.92 10*3/uL Normal 1.10-3.7 0 [facility] Comment on above: Performed By: #### H EPXA, TROPI, CDP, BMP #### [facility] [address] [place] [address] 90038 Tower Equipment Repairer: Norman Blake MD Lymphocytes/100 WBC (Bld) 14 % Low 24-43 [facility] Comment on above: Performed By: #### H EPXA, TROPI, CDP, BMP #### [address] [address] Tower Equipment Repairer: Norman Blake MD MCH (RBC) [Entitic mass] 25.4 pg Normal 25.2-33.5 [facility] Comment on above: Performed By: #### H EPXA, TROPI, CDP, BMP #### [facility] [employer] [address] [place] [address] 57374 Tower Equipment Repairer: Norman Blake MD MCHC (RBC) [Mass/Vol] 32.2 g/dL Normal 28.4-34.8 [facility] Comment on above: Performed By: #### H EPXA, TROPI, CDP, BMP #### [address] [address] Tower Equipment Repairer: Norman Blake MD MCV (RBC) [Entitic vol] 78.7 fL Low 82.6-102.9 M [facility] Comment on above: Performed By: #### H EPXA, TROPI, CDP, BMP #### [address] [address] Tower Equipment Repairer: Norman Blake MD Monocytes (Bld) [#/Vol] 0.92 10*3/uL Normal 0.10-1.20 [facility] Comment on above: Performed By: #### H EPXA, TROPI, CDP, BMP #### [address] [address] Tower Equipment Repairer: Norman Blake MD Monocytes/100 WBC (Bld) 5 % Normal 3-12 [facility] Comment on above: Performed By: #### H EPXA, TROPI, CDP, BMP #### [address] [address] Tower Equipment Repairer: Norman Blake MD Neutrophil (Seg) 80 % High 36-65 [facility] Comment on above: Performed By: #### H EPXA, TROPI, CDP, BMP #### [facility] [facility] [address] [place] [address] Tower Equipment Repairer: Norman Blake MD NRBC Automated 0.0 per 100 WBC Normal 0.0 [facility] Comment on above: Performed By: #### H EPXA, TROPI, CDP, BMP #### [facility] [facility] [address] [place] [address] Tower Equipment Repairer: Norman Blake MD Platelet mean volume (Bld) [Entitic vol] 9.6 fL Normal 8.1-13.5 [facility] Comment on above: Performed By: #### H EPXA, TROPI, CDP, BMP #### [address] [address] Tower Equipment Repairer: Norman Blake MD Platelets (Bld) [#/Vol] 264 10*3/uL Normal 138-453 [facility] Comment on above: Performed By: #### H EPXA, TROPI, CDP, BMP #### [facility] [facility] [address] [place] [address] Tower Equipment Repairer: Norman Blake MD RBC (Bld) [#/Vol] 4.65 10*6/uL Normal 3.95-5.11 [facility] Comment on above: Performed By: #### H EPXA, TROPI, CDP, BMP #### [facility] [address] [place] [address] Tower Equipment Repairer: Norman Blake MD RBC morphology finding Nom (Bld) MICROCYTOSIS PRESENT Normal [facility] Comment on above: Performed By: #### H EPXA, TROPI, CDP, BMP #### [facility] [address] [place] [address] Tower Equipment Repairer: Norman Blake MD WBC (Bld) [#/Vol] 20.4 10*3/uL High 3.5-11.3 [facility] Comment on above: Performed By: #### H EPXA, TROPI, CDP, BMP #### [facility] [address] [place] [address] Tower Equipment Repairer: Norman Blake MD CMP Standardon 03-18-2023 Anion Gap see comment Invalid Interpretation Code 5.0-19.0 [facility] Comment on above: Result Comment: Unab le to calculate Performed By: #### 1 [id number], [id number], [id number] ####[facility] (DEFAULT)[address] [place] [address] Breakpoint Chem Normal [facility] Comment on above: Performed By: #### 1 [id number], [id number], [id number] ####[facility] (DEFAULT)[address] [place] [address] eGFR Non AA >60 Invalid Interpretation Code [facility] Comment on above: Performed By: #### 1 [id number], [id number], [id number] ####[facility] (DEFAULT)[address] [place] [address] eGFR AA >60 Invalid Interpretation Code [facility] Comment on above: Performed By: #### 1 [id number], [id number], [id number] ####[facility] (DEFAULT)[address] [place] [address] Albumin [Mass/Vol] 3.8 g/dL Normal 3.5-5.0 [facility] Comment on above: Performed By: #### 1 [id number], [id number], [id number] ####[facility] (DEFAULT)[address] [place] [address] Albumin/Globulin [Mass ratio] 1.1 {ratio} Low 1.4-2.6 [facility] Comment on above: Performed By: #### 1 [id number], [id number], [id number] ####[facility] (DEFAULT)[address] [place] [address] Alk Phos 84 IU/L Normal 32-91 [facility] Comment on above: Performed By: #### 1 [id number], [id number], [id number] ####[facility] (DEFAULT)[address] [place] [address] ALT [Catalytic activity/Vol] 20.0 U/L Normal 14.0-54.0 [facility] Comment on above: Performed By: #### 1 [id number], [id number], [id number] ####[facility] (DEFAULT)[address] [place] [address] AST [Catalytic activity/Vol] 37 U/L Normal 15-41 [facility] Comment on above: Performed By: #### 1 [id number], [id number], [id number] ####[facility] (DEFAULT)[address] [place] [address] Bili Total 1.6 mg/dL High 0.3-1.2 [facility] Comment on above: Performed By: #### 1 [id number], [id number], [id number] ####[facility] (DEFAULT)[address] [place] [address] Calcium [Mass/Vol] 7.2 mg/dL Low 8.9-10.3 [facility] Comment on above: Performed By: #### 1 [id number], [id number], [id number] ####[facility] (DEFAULT)[address] [place] [address] Chloride [Moles/Vol] 104 mmol/L Normal 101-111 [facility] Comment on above: Performed By: #### 1 [id number], [id number], [id number] ####[facility] (DEFAULT)[address] [place] [address] Creatinine [Mass/Vol] 0.92 mg/dL Normal 0.60-1.30 [facility] Comment on above: Performed By: #### 1 [id number], [id number], [id number] ####[facility] (DEFAULT)[address] [place] [address] Globulin (S) [Mass/Vol] 3.4 g/dL Normal 1.5-4.3 [facility] Comment on above: Performed By: #### 1 [id number], [id number], [id number] ####[facility] (DEFAULT)[address] [place] [address] Glucose [Mass/Vol] 419.0 mg/dL High 74.0-118.0 [facility] Comment on above: Performed By: #### 1 [id number], [id number], [id number] ####[facility] (DEFAULT)[address] [place] [address] Osmolality 275 mOsm/L Invalid Interpretation Code [facility] Comment on above: Performed By: #### 1 [id number], [id number], [id number] ####[facility] (DEFAULT)[address] [place] [address] Potassium [Moles/Vol] 4.1 mmol/L Normal 3.6-5.1 [facility] Comment on above: Performed By: #### 1 [id number], [id number], [id number] ####[facility] (DEFAULT)[address] [place] [address] Protein [Mass/Vol] 7.2 g/dL Normal 6.5-8.1 [facility] Comment on above: Performed By: #### 1 [id number], [id number], [id number] ####[facility] (DEFAULT)[address] [place] [address] Sodium [Moles/Vol] 127.0 mmol/L Low 136.0-144.0 [facility] Comment on above: Performed By: #### 1 [id number], [id number], [id number] ####[facility] (DEFAULT)[address] [place] [address] Urea nitrogen [Mass/Vol] 19 mg/dL Normal 8-26 [facility] Comment on above: Performed By: #### 1 [id number], [id number], [id number] ####[facility] (DEFAULT)[address] [place] [address] Urea nitrogen/Creatinine [Mass ratio] 20.6 mg/mg High 4.6-16.2 [facility] Comment on above: Performed By: #### 1 [id number], [id number], [id number] ####[facility] (DEFAULT)[address] [place] [address] CO2 [Moles/Vol] mmol/L Low 21-32 [facility] Comment on above: Performed By: #### 1 [id number], [id number], [id number] ####[facility] (DEFAULT)[address] [place] [address] Breakpoint Chem Normal [facility] Comment on above: Order Comment: Patie nt is a hard stick. 3 Nurses have tried to do an IV. I am waiting to see if they get the IV started. 03/17/2023 22:08:47 EDT Performed By: #### 3 [id number], [id number], [id number], [id number], [id number], [id number] ####[facility] (DEFAULT)[address] [place] [address] CHEST PULMONARY EMBOLISM W CONTRASTon 03-18-2023 CT CHEST PULMONARY EMBOLISM W CONTRAST ADDENDUM: As stated in the FINDINGS section of the report there is diffuse esophageal thickening with some luminal narrowing likely esophagitis. Clinical correlation and GI consult suggested. Electronically Signed by: BRIDGETTE IRAHETA on FriMar 18, 2023 8:49:24 AM [...] can have a similar appearance. Interpreted by: Bridgette Iraheta MD Signed by: Bridgette Iraheta MD 03/18/23 Edited Result - FINAL Normal [facility] Calcium, Ionicon 03-18-2023 Calcium [Moles/Vol] 1.18 mmol/L Normal 1.13-1.33 [facility] Comment on above: Performed By: #### D CLARK, IOCAL #### [facility] [address] [place] [address] Tower Equipment Repairer: Norman Blake MD D-Dimer Teston 03-18-2023 D-Dimer Test 0.60 ug/mL FEU High 0.00-0.57 [facility] Comment on above: Result Comment: When [...] with distal DVT. Performed By: #### D LAKISHA RODAS #### [facility] [address] [place] [address] Tower Equipment Repairer: Norman Blake MD ED Clinical Summaryon 2022 ED Clinical Summary [facility] [address] [place] [address] ED Clinical Summary PERSON INFORMATION Name: DOUGLAS CORDOVA Age: 27 Years Sex: FEMALE : 1995 MRN: Acct#: Visit Reason: Chest pain; SOB, CHEST PAIN Arrival: 03/17/2023 20:58:55 Discharge: 03/18/2023 03:03:00 LOS: 000 06:05 Check In: 03/17/2023 20:58:55 Checkout:03/18/2023 03:03:00 Address: [address] [facility] [address] PCP: ARCADIO IGLESIAS PROVIDER INFORMATION Provider Role [...] sleepy, arousable gives accurate information, and with treatment--decreas ing rate of ventilation, improving; Mouth dry, neck supple, no jvd at 0 degrees, no a/p/supraclavicula r nodes, lungs cta, ventilates bilat well, increased rate (hyperventilating) , abd soft, not overweight, non-tender, skin turgor [...] instructions, change q 72 hours, 0 Refill(s) amphetamine-dextro amphetamine 30 mg oral capsule, extended release: 30 mg = 1 cap(s), PO, Daily, 0 Refill(s) carisoprodol 350 mg oral tablet: 350 mg = 1 tab(s), PO, TID, 0 Refill(s) clif (more content not included)... Normal [facility] ED Note - Otheron 03-18-2023 ED Note - Other paging [facility] through [facility] for transfer [Electronically Signed on: 03/18/2023 00:54 EDT] ____ Usha Angel [Verified on: 03/18/2023 00:54 EDT] ____ Usha Angel [facility] called back from [facility], Dr. Valdes retuned call, on phone with Dr. Johnson-[phone] [Electronically Signed on: 03/18/2023 01:00 EDT] ____ Usha Angel [facility] ED Patient Education Noteon 03-18-2023 ED Patient Education Note Education Materials [facility] ED Patient Summaryon 023 ED Patient Summary [facility] - Emergency Department [address] [place], [place] [id number] PATIENT DISCHARGE INSTRUCTIONS Patient Information Name: DOUGLAS CORDOVA Age: 27 Years Date of : 1995 Reason For Visit: Chest pain; SOB, CHEST PAIN Arrival Time: 03/17/2023 20:58:55 Primary Care Physician: ARCADIO IGLESIAS Attending Physician: Linn Johnson DO Comment: Visit Diagnosis: Diagnoses This Visit Anxiety (F41.9) Chest pain ([id number]) COVID-19 (U07.1) DKA (diabetic ketoacidosis) (E11.10) The Pharmacy at [facility] is open Friday through Friday [...] alcohol and/or drug addiction problems; contact the [facility] 20/01 Crisis Hotline -Text 6NGON gg [phone]. If you received any narcotics, sedation, or [...] treatment you received today in the [facility] Emergency Department were for an urgent problem and are not intended as complete care. It is important for you to follow up with a doctor, nurse practitioner, or physician?s chemist assistant for ongoing care. If your symptoms [...] so we can reach you if necessary. [facility] has provided you with a complete list of medications post discharge. Please inform your napper fixer/provider of your visit and for further instruction on these medications. Any specific questions regarding your chronic medications and dosages should be discussed with your primary care physician(s) and/or pharmacist. Medications to Continue That Have Not Changed Other Medications amphetamine-dextro amphetamine (amphetamine-dextr oamphetamine 30 mg oral capsule, extended release) 1 cap(s) Oral every day. carisoprodol (carisoprodol 350 mg oral tablet) 1 tab(s) Oral 3 times a day. Durable Medical Equipment for Prescription (OMNIPOD DASH [...] novel coronavirus 03/16/23 Problem added by Rule (IC_COVID19_MAGR_P LANDEN) following SARS-CoV-2 (COVID-19)/Flu/RSV (GeneXpert) from Nasopharyngeal Swab collected on 16-MAR-2023 09:34:00 EDT tested positive for COVID-19. Patient Education Viruses or Bacteria What?s got you sick? Antibiotics only treat bacterial infections. Viral illnesses cannot be treated with antibiotics. When an antibiotic is not prescribed, ask your healthcare professional for tips on how to relieve symptoms and feel better. Usual (more content not included)... Normal [facility] Hemoglobin A1Con 03-18-2023 Glucose [Mass/Vol] 369 mg/dL Normal [facility] Comment on above: Result Comment: The ADA and AACC recommend providing the estimated average glucose result to permit better patient understanding of their HBA1c result. Performed By: #### H EPXA, TROPI, CDP, BMP #### [facility] [place], [place] [address] Tower Equipment Repairer: Norman Blake MD HbA1c (Bld) [Mass fraction] 14.5 % High 4.0-6.0 [facility] Comment on above: Performed By: #### H EPXA, TROPI, CDP, BMP #### [facility] [address] [place] [address] Tower Equipment Repairer: Norman Blake MD Heparin Anti-Xaon 03-18-2023 Heparin Anti-Xa <0.10 [facility] Comment on above: Performed By: #### D CLARK, IOCAL #### [facility] [address] [place] [address] Tower Equipment Repairer: Norman Blake MD Heparin Anti-Xa <0.10 Normal [facility] Comment on above: Performed By: #### R EJEC, HEPXA #### [facility] [address] [place] [address] Tower Equipment Repairer: Norman Blake MD Heparin Anti-Xa <0.10 [facility] Comment on above: Performed By: #### R EJEC, HEPXA #### [facility] [address] [place] [address] Tower Equipment Repairer: Norman Blake MD MRSA, DNA, Nasalon 3 Specimen Description .NASAL SWAB Normal [facility] Comment on above: Performed By: #### Jam RODAS, IOCAL #### [facility] [address] [place] [address] Tower Equipment Repairer: Norman Blake MD Magnesiumon 03-18-2023 Magnesium [Mass/Vol] 1.9 mg/dL Normal 1.6-2.6 [facility] Comment on above: Performed By: #### D CLARK, IOCAL #### [facility] [address] [place] [address] Tower Equipment Repairer: Norman Blake MD Magnesium [Mass/Vol] 2.2 mg/dL Normal 1.6-2.6 [facility] Comment on above: Performed By: #### R EJEC, HEPXA #### [facility] [address] [place] [address] Tower Equipment Repairer: Norman Blake MD Magnesium [Mass/Vol] 2.2 mg/dL Normal 1.6-2.6 [facility] Comment on above: Performed By: #### R YURI, HEPXA #### [facility] [address] [place] [address] [id number] Tower Equipment Repairer: Norman Blake MD Magnesium [Mass/Vol] 1.6 mg/dL Normal 1.6-2.6 [facility] Comment on above: Performed By: #### D CLARK, IOCAL #### [address] [id number] Tower Equipment Repairer: Norman Blake MD Myoglobinon 03-18-2023 Myoglobin [Mass/Vol] 288.6 ng/mL High 14.3-65.8 [facility] Comment on above: Performed By: #### 1 [id number], [id number], [id number] ####[facility] (DEFAULT)[address] [place] [address] PTon 03-18-2023 INR Coag (PPP) [Relative time] 1.1 {INR} Normal [facility] Comment on above: Result Comment: Therapeutic Range: Moderate Anticoagulant Intensity: INR = 2.0-3.0 High Anticoagulant Intensity: INR = 2.5-3.5 Performed By: #### R YURI, HEPXA #### [facility] [address] [place] [address] [phone] Tower Equipment Repairer: Norman Blake MD PT Coag (PPP) [Time] 14.1 s Normal 11.7-14.9 [facility] Comment on above: Performed By: #### R YURI, HEPXA #### [facility] [address] [place] [address] [id number] Tower Equipment Repairer: Norman Blake MD Phosphorus, Inorg.on 023 Phosphorus, Inorg. 0.4 mg/dL Critically low 2.6-4.5 [facility] Comment on above: Performed By: #### D CLARK, IOCAL #### [address] [address] Tower Equipment Repairer: Norman Blake MD Phosphorus, Inorg. 0.4 mg/dL Critically low 2.6-4.5 [facility] Comment on above: Result Comment: TEST CONFIRMED Performed By: #### R EJEC, HEPXA #### [facility] [address] [place] [address] Tower Equipment Repairer: Norman Blake MD Phosphorus, Inorg. 0.9 mg/dL Critically low 2.6-4.5 [facility] Comment on above: Performed By: #### D CLARK, IOCAL #### [address] [address] Tower Equipment Repairer: Norman Blake MD Phosphorus, Inorg. 1.2 mg/dL Low 2.6-4.5 [facility] Comment on above: Performed By: #### H EPXA, TROPI, CDP, BMP #### [address] [address] Tower Equipment Repairer: Norman Blake MD Specimen Rejectionon 023 Reason for rejection Unable to perform testing: Specimen contaminated. Normal [facility] Comment on above: Performed By: #### R EJEC, HEPXA #### [facility] [address] [place] [address] Tower Equipment Repairer: oNrman Blake MD Source of sample .BLOOD Normal [facility] Comment on above: Performed By: #### R EJEC, HEPXA #### [facility] [address] [place] [address] Tower Equipment Repairer: Norman Blake MD Test ordered TROPI MG AUDRA BMP Normal [facility] Comment on above: Performed By: #### R EJEC, HEPXA #### [facility] [address] [place] [address] Tower Equipment Repairer: Norman Blake MD TnI HSon 03-18-2023 Troponin I High Sensitivity 5176.9 pg/mL Crit ically abnormal <=15.0 [facility] Comment on above: Result Comment: Crit ical result TNIHS 5176.9 pg/mL called to and read back by Nora Bliss RN at 18-Mar-2023 01:30 by Winston. Performed By: #### 1 [id number], [id number], [id number] ####[facility] ([facility])[address] [place], [place] [id number] Transfer Noteon 03-18-2023 Transfer Note assignment [facility] 3008 bed 1 report # [phone] [Electronically Signed on: 03/18/2023 02:25 EDT] ____ Usha Angel [Verified on: 03/18/2023 02:25 EDT] ____ [facility] Transfer Note Complete ED chart sent with patient. CD and med list sent w. patient to Hospital, [facility] [Electronically Signed on: 03/18/2023 01:47 EDT] ____ Usha Angel [Verified on: 03/18/2023 01:47 EDT] ____ [facility] Transfer Note [id number] [facility] [id number] [facility] to [facility], Spoke to Diane and she stated that they are unable to take patient do to her being in DKA. Will try other transport. [Electronically Signed on: 03/18/2023 01:11 EDT] ____ Usha Angel [Verified on: 03/18/2023 01:11 EDT] ____ Usha Angel Called and spoke to [facility].v; transport for [facility] 1hr @ 0119 [Electronically Signed on: 03/18/2023 01:19 EDT] ____ Usha Angel [facility] Transfer Note Contacted transfer line through [facility], [facility] [Electronically Signed on: 03/18/2023 00:21 EDT] ____ Usha Angel [Verified on: 03/18/2023 00:21 EDT] ____ Usha Angel [employer]ter called back from [facility], on the phone with Dr. Johnson [phone] [Electronically Signed on: 03/18/2023 00:32 EDT] ____ Usha Angel [facility] Troponinon 03-18-2023 Troponin, High Sens 851 ng/L Critically high 0-14 [facility] Comment on above: Result Comment: High Sensitivity Troponin values cannot be compared with other Troponin methodologies. Previous Alert Value Reported Performed By: #### D CLARK, IOCAL #### [facility] [address] [place] [address] Tower Equipment Repairer: Norman Blake MD Troponin, High Sens 860 ng/L Critically high 0-14 [facility] Comment on above: Result Comment: High Sensitivity Troponin values cannot be compared with other Troponin methodologies. Previous Alert Value Reported Performed By: #### R EJEC, HEPXA #### [facility] [address] [place] [address] Tower Equipment Repairer: Norman Blake MD Troponin, High Sens 709 ng/L Critically high 0-14 [facility] Comment on above: Result Comment: High Sensitivity Troponin values cannot be compared with other Troponin methodologies. Previous Alert Value Reported Performed By: #### H EPXA, TROPI, CDP, BMP #### [facility] [address] [place] [address] Tower Equipment Repairer: Norman Blake MD Troponin, High Sens 700 ng/L Critically high 0-14 [facility] Comment on above: Result Comment: High Sensitivity Troponin values cannot be compared with other Troponin methodologies. Previous Alert Value Reported Performed By: #### D CLARK, IOCAL #### [facility] [address] [place] [address] Tower Equipment Repairer: Norman Blake MD Troponin, High Sens 638 ng/L Critically high 0-14 [facility] Comment on above: Result Comment: High Sensitivity Troponin values cannot be compared with other Troponin methodologies. Performed By: #### H EPXA, TROPI, CDP, BMP #### [facility] [address] [place] [address] Tower Equipment Repairer: Norman Blake MD UA w/Reflex Cultureon 2022 Bilirubin, SemiQt,Ur Negative Normal NEG [facility] Comment on above: Performed By: #### U AX #### [address] [address] Tower Equipment Repairer: Norman Blake MD Blood, Urine LARGE Abnormal NEG [facility] Comment on above: Performed By: #### U AX #### [address] [address] Tower Equipment Repairer: Norman Blake MD Clarity (U) Cloudy Abnormal CLEAR [facility] Comment on above: Performed By: #### U AX #### [address] [address] Tower Equipment Repairer: Norman Blake MD Color (U) Yellow Normal YEL [facility] Comment on above: Performed By: #### U AX #### [address] [address] Tower Equipment Repairer: Norman Blake MD Glucose Ql (U) 3+ mg/dL Abnormal NEG [facility] Comment on above: Performed By: #### U AX #### [address] [address] Tower Equipment Repairer: Norman Blake MD Ketones Ql (U) LARGE Abnormal NEG [facility] Comment on above: Performed By: #### U AX #### [address] [address] Tower Equipment Repairer: Norman Blake MD Leukocyte esterase Test strip Ql (U) Negative Normal NEG [facility] Comment on above: Performed By: #### U AX #### [address] [address] Tower Equipment Repairer: Norman Blake MD Nitrite,Ur Negative Normal NEG [facility] Comment on above: Performed By: #### U AX #### [address] [address] Tower Equipment Repairer: Norman Blake MD PH,Ur 5.5 Normal 5.0-8.0 [facility] Comment on above: Performed By: #### U AX #### [address] [address] Tower Equipment Repairer: Norman Blake MD Protein Ql (U) 2+ mg/dL Abnormal NEG [facility] Comment on above: Performed By: #### U AX #### [address] [address] Tower Equipment Repairer: Norman Blake MD Spec. [place],Ur 1.028 Normal 1.005-1.030 [facility] Comment on above: Performed By: #### U AX #### [address] [address] Tower Equipment Repairer: Norman Blake MD Urobilinogen,Ur Normal Normal 0.0-1.0 [facility] Comment on above: Performed By: #### U AX #### [address] [address] Tower Equipment Repairer: Norman Blake MD Venous Blood Gaseson 023 Body Temp. 37.0 Normal [facility] Comment on above: Performed By: #### R EJEC, HEPXA #### [address] [address] Tower Equipment Repairer: Norman Blake MD Carboxy Hgb 0.7 % Normal 0-5 [facility] Comment on above: Result Comment: Reference Range: Non-Smokers 0-2% Average Smoker 2-4% Heavy Smoker <10% Performed By: #### R EJEC, HEPXA #### [address] [address] Tower Equipment Repairer: Norman Blake MD FIO2 INFORMATION NOT PROVIDED Normal [facility] Comment on above: Performed By: #### R EJEC, HEPXA #### [address] [address] Tower Equipment Repairer: Norman Blake MD HCO3 (Bld) [Moles/Vol] 17.2 mmol/L Low 24-30 M [facility] Comment on above: Performed By: #### R EJEC, HEPXA #### [address] [address] Tower Equipment Repairer: Norman Blake MD Negative Base Excess 7.0 mmol/L High 0.0-2.0 [facility] Comment on above: Performed By: #### R EJEC, HEPXA #### [address] [address] Tower Equipment Repairer: Norman Blake MD Oxygen saturation in Blood 90.7 % High 60.0-85.0 [facility] Comment on above: Performed By: #### R EJEC, HEPXA #### [address] [address] Tower Equipment Repairer: Norman Blake MD pCO2 32.2 mm Hg Low 39-55 [facility] Comment on above: Performed By: #### R EJEC, HEPXA #### [address] [address] Tower Equipment Repairer: Norman Blake MD pH (Bld) 7.348 [pH] Normal 7.320-7.420 [facility] Comment on above: Performed By: #### R EJEC, HEPXA #### [address] [address] Tower Equipment Repairer: Norman Blake MD pO2 55.1 mm Hg High 30-50 [facility] Comment on above: Performed By: #### R EJEC, HEPXA #### [address] [address] [place] [address] Tower Equipment Repairer: Norman Blake MD XR CHEST PORTABLEon 03-18-20 [...] Prieto Engel MD 03/18/23 Final result Normal [facility] .Auto Diff 1on 03-17-2023 Auto Rice % 3 % Normal -12 [facility] Comment on above: Performed By: #### 3 [id number], [id number], [id number], [id number], [id number], [id number] ####[facility] (DEFAULT)[address] [place] [address] Baso Abs# 0.1 x10 Normal 0.0-0.2 [facility] Comment on above: Performed By: #### 3 [id number], [id number], [id number], 05054186, [id number], 9226084 ####[facility] (DEFAULT)[address] [place] [address] Basophils/100 WBC (Bld) 0.6 % Normal 0.2-2.0 [facility] Comment on above: Performed By: #### 3 [id number], [id number], 8041286417, 70519231, [id number], 0322044 ####[facility] (DEFAULT)[address] [place] [address] Eos Abs# 0.0 x10 Normal 0.0-0.4 [facility] Comment on above: Performed By: #### 3 [id number], [id number], 3645866770, 35306109, 4024734463, 4516682 ####[facility] (DEFAULT)[address] [place] [address] Eosinophils/100 WBC (Bld) 0.1 % Low 0.9-4.0 [facility] Comment on above: Performed By: #### 3 [id number], [id number], 7517498543, 61202580, 9640000809, 6596509 ####[facility] (DEFAULT)[address] [place] [address] Lymph Abs# 1.4 x10 Normal 1.3-2.9 [facility] Comment on above: Performed By: #### 3 [id number], [id number], 0604946510, 17836368, 9551098127, 8567919 ####[facility] (DEFAULT)[address] [place] [address] Lymphocytes/100 WBC (Bld) 6 % Low 14-48 [facility] Comment on above: Performed By: #### 3 [id number], [id number], 5937637741, 03137819, 8112935718, 3091723 ####[facility] (DEFAULT)[address] [place] [address] Rice Abs# 0.7 x10 Normal 0.0-0.8 [facility] Comment on above: Performed By: #### 3 [id number], [id number], [id number], 29923051, 8902836676, 0453682 ####[facility] (DEFAULT)[address] [place] [address] Neut Abs# 19.8 x10 High 1.5-9.2 [facility] Comment on above: Performed By: #### 3 [id number], [id number], 7818192375, 64108518, 0981761543, 5692619 ####[facility] (DEFAULT)[address] [place] [address] Neutrophils/100 WBC (Bld) 90 % High 44-88 [facility] Comment on above: Performed By: #### 3 [id number], 1648986029, 8582619060, 47077311, 4465387200, 5661840 ####[facility] (DEFAULT)[address] [place] [address] Acet Levelon 03-17-2023 Acetaminoph Lvl <10 Normal 10-30 [facility] Comment on above: Performed By: #### 6 [id number] #### [facility] (DEFAULT) [address] [place] [address] CBC w/ Auto Diffon 3 Erythrocyte distribution width (RBC) [Ratio] 15.6 % High 11.5-15.0 [facility] Comment on above: Order Comment: Patie nt is a hard stick. 3 Nurses have tried to do an IV. I am waiting to see if they get the IV started. 03/17/2023 22:08:47 EDT Performed By: #### 3 [id number], [id number], 6244704736, 93615761, 6906548659, 3710656 ####[facility] (DEFAULT)[address] [place] [address] Hematocrit (Bld) [Volume fraction] 47.0 % High 33.7-40.4 [facility] Comment on above: Order Comment: Patie nt is a hard stick. 3 Nurses have tried to do an IV. I am waiting to see if they get the IV started. 03/17/2023 22:08:47 EDT Performed By: #### 3 [id number], [id number], 9211666039, 41386226, 3488806742, 5708861 ####[facility] (DEFAULT)[address] [place] [address] Hemoglobin (Bld) [Mass/Vol] 14.5 g/dL Normal 11.3-15. 9 [facility] Comment on above: Order Comment: Patie nt is a hard stick. 3 Nurses have tried to do an IV. I am waiting to see if they get the IV started. 03/17/2023 22:08:47 EDT Performed By: #### 3 [id number], [id number], 5213425938, 75894939, 7148483665, 8745315 ####[facility] (DEFAULT)[address] [place] [address] Man Diff? Auto Invalid Interpretation Code [facility] Comment on above: Order Comment: Patie nt is a hard stick. 3 Nurses have tried to do an IV. I am waiting to see if they get the IV started. 03/17/2023 22:08:47 EDT Performed By: #### 3 [id number], [id number], 1429112263, 36158910, 1680494789, 6962309 ####[facility] (DEFAULT)[address] [place] [address] MCH (RBC) [Entitic mass] 25 pg Normal 24-34 [facility] Comment on above: Order Comment: Patie nt is a hard stick. 3 Nurses have tried to do an IV. I am waiting to see if they get the IV started. 03/17/2023 22:08:47 EDT Performed By: #### 3 [id number], 0043906531, 9937772897, 53140454, 9938347753, 2378558 ####[facility] (DEFAULT)[address] [place] [address] MCHC (RBC) [Mass/Vol] 31 g/dL Normal 26-37 [facility] Comment on above: Order Comment: Patie nt is a hard stick. 3 Nurses have tried to do an IV. I am waiting to see if they get the IV started. 03/17/2023 22:08:47 EDT Performed By: #### 3 [id number], [id number], 7644760514, 81890201, 3682152301, 1899221 ####[facility] (DEFAULT)[address] [place] [address] MCV (RBC) [Entitic vol] 81 fL Normal 81-100 [facility] Comment on above: Order Comment: Patie nt is a hard stick. 3 Nurses have tried to do an IV. I am waiting to see if they get the IV started. 03/17/2023 22:08:47 EDT Performed By: #### 3 [id number], 7690969173, 0878244761, 92926718, 0173922350, 7702230 ####[facility] (DEFAULT)[address] [place] [address] Platelet 381 x10 Normal 138-427 [facility] Comment on above: Order Comment: Patie nt is a hard stick. 3 Nurses have tried to do an IV. I am waiting to see if they get the IV started. 03/17/2023 22:08:47 EDT Performed By: #### 3 [id number], 9250822731, 9999422440, 41130722, 2049593017, 3773654 ####[facility] (DEFAULT)[address] [place] [address] Platelet mean volume (Bld) [Entitic vol] 8.3 fL Normal 6.3-10.2 [facility] Comment on above: Order Comment: Patie nt is a hard stick. 3 Nurses have tried to do an IV. I am waiting to see if they get the IV started. 03/17/2023 22:08:47 EDT Performed By: #### 3 [id number], [id number], 8065728944, 70827346, 2952598456, 4089593 ####[facility] (DEFAULT)[address] [place] [address] RBC 5.80 x10 High 3.70-5.30 [facility] Comment on above: Order Comment: Patie nt is a hard stick. 3 Nurses have tried to do an IV. I am waiting to see if they get the IV started. 03/17/2023 22:08:47 EDT Performed By: #### 3 [id number], 7744727195, 7547045762, 58811820, 5305572032, 7716563 ####[facility] (DEFAULT)[address] [place] [address] WBC 22.0 x10 High 3.5-10.5 [facility] Comment on above: Order Comment: Patie nt is a hard stick. 3 Nurses have tried to do an IV. I am waiting to see if they get the IV started. 03/17/2023 22:08:47 EDT Result Comment: Slid e Reviewed Performed By: #### 3 [id number], [id number], 6527149343, 38453798, 0101763450, 3279199 ####[facility] (DEFAULT)[address] [place] [address] CMP Standardon 03-17-2023 eGFR Non AA >60 Invalid Interpretation Code [facility] Comment on above: Order Comment: Patie nt is a hard stick. 3 Nurses have tried to do an IV. I am waiting to see if they get the IV started. 03/17/2023 22:08:47 EDT Performed By: #### 3 [id number], [id number], 0670795808, 11384697, 0217233778, 4675377 ####[facility] (DEFAULT)[address] [place] [address]6020 eGFR AA >60 Invalid Interpretation Code [facility] Comment on above: Order Comment: Patie nt is a hard stick. 3 Nurses have tried to do an IV. I am waiting to see if they get the IV started. 03/17/2023 22:08:47 EDT Performed By: #### 3 [id number], [id number], 7094399968, 48572648, 7366668272, 8426235 ####[facility] (DEFAULT)[address] [place] [address] 58563 Albumin [Mass/Vol] 4.3 g/dL Normal 3.5-5.0 [facility] Comment on above: Order Comment: Patie nt is a hard stick. 3 Nurses have tried to do an IV. I am waiting to see if they get the IV started. 03/17/2023 22:08:47 EDT Performed By: #### 3 [id number], [id number], 7534729057, 74801938, 3575989398, 7796930 ####[facility] (DEFAULT)[address] [place] [address]171 Albumin/Globulin [Mass ratio] 1.1 {ratio} Low 1.4-2.6 [facility] Comment on above: Order Comment: Patie nt is a hard stick. 3 Nurses have tried to do an IV. I am waiting to see if they get the IV started. 03/17/2023 22:08:47 EDT Performed By: #### 3 [id number], 2398562038, 0565279918, 77124593, 1019540697, 2330230 ####[facility] (DEFAULT)[address] [place] [address] 21341 Alk Phos 93 IU/L High 32-91 [facility] Comment on above: Order Comment: Patie nt is a hard stick. 3 Nurses have tried to do an IV. I am waiting to see if they get the IV started. 03/17/2023 22:08:47 EDT Performed By: #### 3 [id number], 3924838100, 7294600384, 24243349, 2894046803, 1178834 ####[facility] (DEFAULT)[address] [place] [address] 46231 ALT [Catalytic activity/Vol] 21.0 U/L Normal 14.0-54.0 [facility] Comment on above: Order Comment: Patie nt is a hard stick. 3 Nurses have tried to do an IV. I am waiting to see if they get the IV started. 03/17/2023 22:08:47 EDT Performed By: #### 3 [id number], [id number], 7552872921, 38748786, 0220455451, 6487854 ####[facility] (DEFAULT)[address] [place] [address] 82202 AST [Catalytic activity/Vol] 37 U/L Normal 15-41 [facility] Comment on above: Order Comment: Patie nt is a hard stick. 3 Nurses have tried to do an IV. I am waiting to see if they get the IV started. 03/17/2023 22:08:47 EDT Performed By: #### 3 [id number], 7062619984, 6682317434, 15088572, 7124969163, 4534115 ####[facility] (DEFAULT)[address] [place] [address] 10134 Bili Total 1.7 mg/dL High 0.3-1.2 [facility] Comment on above: Order Comment: Patie nt is a hard stick. 3 Nurses have tried to do an IV. I am waiting to see if they get the IV started. 03/17/2023 22:08:47 EDT Performed By: #### 3 [id number], 3332003131, 2297754865, 08049957, 1254931157, 4333350 ####[facility] (DEFAULT)[address] [place] [address] 22713 Calcium [Mass/Vol] 7.7 mg/dL Low 8.9-10.3 [facility] Comment on above: Order Comment: Patie nt is a hard stick. 3 Nurses have tried to do an IV. I am waiting to see if they get the IV started. 03/17/2023 22:08:47 EDT Performed By: #### 3 [id number], [id number], 0801571340, 09335879, 6824230003, 3516722 ####[facility] (DEFAULT)[address] [place] [address] 26613 Chloride [Moles/Vol] 99 mmol/L Low 101-111 [facility] Comment on above: Order Comment: Patie nt is a hard stick. 3 Nurses have tried to do an IV. I am waiting to see if they get the IV started. 03/17/2023 22:08:47 EDT Performed By: #### 3 [id number], 9791094703, 9610007808, 08481130, 6947674528, 0427163 ####[facility] (DEFAULT)[address] [place] [address] 53406 Creatinine [Mass/Vol] 1.01 mg/dL Normal 0.60-1.30 [facility] Comment on above: Order Comment: Patie nt is a hard stick. 3 Nurses have tried to do an IV. I am waiting to see if they get the IV started. 03/17/2023 22:08:47 EDT Performed By: #### 3 [id number], [id number], 8992285490, 43204700, 4143534441, 3041883 ####[facility] (DEFAULT)[address] [place] [address] 58494 Globulin (S) [Mass/Vol] 3.7 g/dL Normal 1.5-4.3 [facility] Comment on above: Order Comment: Patie nt is a hard stick. 3 Nurses have tried to do an IV. I am waiting to see if they get the IV started. 03/17/2023 22:08:47 EDT Performed By: #### 3 [id number], [id number], 3012666163, 59522960, 0110033154, 5717815 ####[facility] (DEFAULT)[address] [place] [address] 55483 Glucose [Mass/Vol] 455.0 mg/dL High 74.0-118.0 [facility] Comment on above: Order Comment: Patie nt is a hard stick. 3 Nurses have tried to do an IV. I am waiting to see if they get the IV started. 03/17/2023 22:08:47 EDT Performed By: #### 3 [id number], 1359831561, 1424764118, 30845931, 6806898849, 9396192 ####[facility] (DEFAULT)[address] [place] [address] 23334 Osmolality 272 mOsm/L Invalid Interpretation Code [facility] Comment on above: Order Comment: Patie nt is a hard stick. 3 Nurses have tried to do an IV. I am waiting to see if they get the IV started. 03/17/2023 22:08:47 EDT Performed By: #### 3 [id number], 0248241086, 9567932326, 43542948, 6808229529, 8485209 ####[facility] (DEFAULT)[address] [place] [address] 04391 Protein [Mass/Vol] 8.0 g/dL Normal 6.5-8.1 [facility] Comment on above: Order Comment: Patie nt is a hard stick. 3 Nurses have tried to do an IV. I am waiting to see if they get the IV started. 03/17/2023 22:08:47 EDT Performed By: #### 3 [id number], 5176582344, 4244339160, 16911992, 1479312650, 1916048 ####[facility] (DEFAULT)[address] [place] [address] 88468 Sodium [Moles/Vol] 125.0 mmol/L Low 136.0-144.0 [facility] Comment on above: Order Comment: Patie nt is a hard stick. 3 Nurses have tried to do an IV. I am waiting to see if they get the IV started. 03/17/2023 22:08:47 EDT Performed By: #### 3 [id number], 0775853411, 4926352863, 10686573, 3826333963, 9523697 ####[facility] (DEFAULT)[address] [place] [address] 90540 Urea nitrogen [Mass/Vol] 16 mg/dL Normal 8-26 [facility] Comment on above: Order Comment: Patie nt is a hard stick. 3 Nurses have tried to do an IV. I am waiting to see if they get the IV started. 03/17/2023 22:08:47 EDT Performed By: #### 3 [id number], 0872827487, 7979444769, 92038846, 5528496978, 8788143 ####[facility] (DEFAULT)[address] [place] [address] 52793 Urea nitrogen/Creatinine [Mass ratio] 15.8 mg/mg Normal 4.6-16.2 [facility] Comment on above: Order Comment: Patie nt is a hard stick. 3 Nurses have tried to do an IV. I am waiting to see if they get the IV started. 03/17/2023 22:08:47 EDT Performed By: #### 3 [id number], [id number], 5529948016, 43240601, 5295745127, 0351024 ####[facility] (DEFAULT)[address] [place] [address] 81904 Potassium [Moles/Vol] 4.6 mmol/L Normal 3.6-5.1 [facility] Comment on above: Order Comment: Patie nt is a hard stick. 3 Nurses have tried to do an IV. I am waiting to see if they get the IV started. 03/17/2023 22:08:47 EDT Result Comment: Delt a check reviewed with RN Performed By: #### 3 [id number], 4658393528, 5546378531, 90377439, 7584288136, 2211262 ####[facility] (DEFAULT)[address] [place] [address] CO2 [Moles/Vol] mmol/L Low 21-32 [facility] Comment on above: Order Comment: Patinishant nt is a hard stick. 3 Nurses have tried to do an IV. I am waiting to see if they get the IV started. CJ 03/17/2023 22:08:47 EDT Result Comment: Resu lts Verified by Repeat Analysis Performed By: #### 3 [id number], 4500361679, 5746474508, 98121820, 5488120052, 1878667 ####[facility] (DEFAULT)[address] [place] [address] Consent Formson 03-17-2023 Consent Forms [id number]#1.00OTGTIFF Normal [facility] ED Note - Physicianon 2022 ED Note [...] sleepy, arousable gives accurate information, and with treatment--decreas ing rate of ventilation, improving; Mouth dry, neck supple, no jvd at 0 degrees, no a/p/supraclavicula r nodes, lungs cta, ventilates bilat well, increased rate (hyperventilating) , abd soft, not overweight, non-tender, skin turgor [...] instructions, change q 72 hours, 0 Refill(s) amphetamine-dextro amphetamine 30 mg oral capsule, extended release: 30 [...] Social History Medical history: Resolved Diabetes mellitus (957401072): Resolved. . Surgical history: No active procedure [...] Lab Collect T (more content not included)... [facility] Ethanol.on 03-17-2023 Ethanol Level <5.0 Normal 0.0-5.0 [facility] Comment on above: Order Comment: Patie nt [...] 03/17/2023 22:18:48 EDT Performed By: #### 6 [id number] #### [facility] (DEFAULT) [address] [place] [address] 08540 Ketone Serumon 03-17-2023 Ketone Serum Small Normal Negative [facility] Comment on above: Performed By: #### 6 [id number] ####[facility] (DEFAULT)[address] [place] [address] 58458 Test Serum 1on Preg Serum Internal Control OK [facility] Comment on above: Order Comment: Patie nt is a hard stick. 3 Nurses have tried to do an IV. I am waiting to see if they get the IV started. 03/17/2023 22:08:47 EDT Performed By: #### 3 [id number], [id number], 3418673838, 66508667, 3706123052, 2669813 ####[facility] (DEFAULT)[address] [place] [address] 25084 Test Serum Qual Negative [facility] Comment on above: Order Comment: Patie nt is a hard stick. 3 Nurses have tried to do an IV. I am waiting to see if they get the IV started. 03/17/2023 22:08:47 EDT Performed By: #### 3 [id number], [id number], 0180496660, 07176238, 6743525611, 4309081 ####[facility] (DEFAULT)[address] [place] [address] 16017 Salicylateon 03-17-2023 Salicylate Lvl <4.0 Normal 0.0-30.0 [facility] Comment on above: Performed By: #### 2 [id number], [id number] ####[facility] (DEFAULT)[address] [place] [address] 07831 Telemetry Stripson 3 Telemetry Strips [id number]#1.00OTGTIFF Normal [facility] TnI HSon 03-17-2023 Troponin I High Sensitivity 3869.7 pg/mL Crit ically abnormal <=15.0 [facility] Comment on above: Order Comment: Patie nt is a hard stick. 3 Nurses have tried to do an IV. I am waiting to see if they get the IV started. 03/17/2023 22:08:47 EDT Result Comment: Crit ical result TNIHS 3869.7 pg/mL called to and read back by Nora Bliss RN in ER at 17-Mar-2023 23:51 by Isaiah. Performed By: #### 3 [id number], [id number], [id number], 54903886, 7446125838, 1591167 ####[facility] (DEFAULT)[address] [place] [address] 25457 Triage Panel 12on 03-17-2023 Triage Internal Control Pass Normal [facility] Comment on above: Performed By: #### 1 [id number], [id number], [id number], 4426917 ####[facility] (DEFAULT)[address] [place] [address] 41109 U Amph Scr Negative Normal [facility] Comment on above: Performed By: #### 1 [id number], 03472100, 2956583658, 5492962 ####[facility] (DEFAULT)[address] [place] [address] 90458 U Landy Scr Negative [facility] Comment on above: Performed By: #### 1 [id number], 84123617, 3478556689, 8991278 ####[facility] (DEFAULT)[address] [place] [address] 31029 U Benzodia Scr Negative Normal [facility] Comment on above: Performed By: #### 1 [id number], [id number], 0281566736, 9973844 ####[facility] (DEFAULT)[address] [place] [address] 37663 U Cannab Scrn Negative Normal [facility] Comment on above: Performed By: #### 1 [id number], 43210985, 6073175977, 5090003 ####[facility] (DEFAULT)[address] [place] [address] 86806 U Cocaine Scr Negative Normal [facility] Comment on above: Performed By: #### 1 [id number], 21404346, 2537548464, 4740240 ####[facility] (DEFAULT)[address] [place] [address] 82195 U Methadone Scr Negative Normal [facility] Comment on above: Performed By: #### 1 [id number], 14106969, 4553501433, 8899747 ####[facility] (DEFAULT)[address] [place] [address] 98368 U Methamp Scrn Negative [facility] Comment on above: Performed By: #### 1 [id number], 21292640, [id number], 2467124 ####[facility] (DEFAULT)[address] [place] [address] 69841 U Opiate Scr Negative [facility] Comment on above: Performed By: #### 1 [id number], 28632254, 2174304654, 7369347 ####[facility] (DEFAULT)[address] [place] [address] 53373 U Oxycod Scr Negative Normal [facility] Comment on above: Performed By: #### 1 [id number], 59351653, 6148968113, 7069205 ####[facility] (DEFAULT)[address] [place] [address] 46484 U Phencyclidine Scr Negative Normal [facility] Comment on above: Performed By: #### 1 [id number], 29465610, 1713099069, 3250108 ####[facility] (DEFAULT)[address] [place] [address] U Propoxyphene Scr Negative Normal [facility] Comment on above: Performed By: #### 1 [id number], 05823687, [id number] ####[facility] (DEFAULT)[address] [place] [id number] U Tricyclic Antidepress Scr Negative Normal [facility] Comment on above: Result Comment: Resu lts [...] PPX Propoxyphene (Norpropoxyphene): 300 ng/mL THC Cannabinoids (14-orq-3-carboxy- -THC): 50 ng/mL TCA Tricyclic-Antidepressants (Desipramine): 300 ng/mL Performed By: #### 1 [id number] ####[facility] (DEFAULT)[address] [place] [address] 707[address] Urine Source Voided Normal [facility] Comment on above: Performed By: #### 1 [id number], [id number], [id number], [id number] ####[facility] (DEFAULT)[address] [place] [address] 11663 UA Clgyq1yr 03-17-2023 UA Amorph. 1+ Normal [facility] Comment on above: Order Comment: Urina lysis Microscopic order added on by Discern Expert Rules system. Performed By: #### 1 [id number], [id number], [id number] ####[facility] (DEFAULT)[address] [place] [address] UA Bacteria 4+ [facility] Comment on above: Order Comment: Urina lysis Microscopic order added on by imbookin (Pogby) Expert Rules system. Performed By: #### 1 [id number], [id number], [id number], [id number] ####[facility] (DEFAULT)[address] [place] [address] UA RBC 5-10 [facility] Comment on above: Order Comment: Urina lysis Microscopic order added on by imbookin (Pogby) Expert Rules system. Performed By: #### 1 [id number], [id number], [id number], [id number] ####[facility] (DEFAULT)[address] [place] [address] UA Squam Epi Many [facility] Comment on above: Order Comment: Urina lysis Microscopic order added on by imbookin (Pogby) Expert Rules system. Performed By: #### 1 [id number], [id number], [id number], [id number] ####[facility] (DEFAULT)[address] [place] [address] UA WBC 0-2 [facility] Comment on above: Order Comment: Urina lysis Microscopic order added on by imbookin (Pogby) Expert Rules system. Performed By: #### 1 [id number], [id number], [id number], [id number] ####[facility] (DEFAULT)[address] [place] [address] UA w Culture if Ind Standard on 03-17-2023 Breakpoint UA [facility] Comment on above: Performed By: #### 1 [id number], [id number], [id number], [id number] ####[facility] (DEFAULT)[address] [place] [address] Color (U) Yellow [facility] Comment on above: Performed By: #### 1 [id number], [id number], [id number], [id number] ####[facility] (DEFAULT)[address] [place] [address] Culture? Indicated Invalid Interpretation Code [facility] Comment on above: Result Comment: Resu lt created by rule GL_MAGR_ADD_UA_CULT Performed By: #### 1 [id number], [id number], [id number], [id number] ####[facility] (DEFAULT)[address] [place] [address] Glucose (U) [Mass/Vol] 500 mg/dL Normal [facility] Comment on above: Performed By: #### 1 [id number], [id number], [id number], [id number] ####[facility] (DEFAULT)[address] [place] [address] Ketones Ql (U) >=80 Normal [facility] Comment on above: Performed By: #### 1 [id number], [id number], [id number], [id number] ####[facility] (DEFAULT)[address] [place] [address] Micro? Indicated Invalid Interpretation Code [facility] Comment on above: Result Comment: Resu lt created by rule GL_MAGR_ADD_UA_MICRO Result created by rule GL_MAGR_ADD_UA_MICRO Performed By: #### 1 [id number], [id number], [id number], [id number] ####[facility] (DEFAULT)[address] [place] [address] 13179 UA Bilirubin Negative Normal [facility] Comment on above: Performed By: #### 1 [id number], [id number], [id number], [id number] ####[facility] (DEFAULT)[address] [place] [address] 86792 UA Blood LARGE Abnormal NEGATIVE [facility] Comment on above: Performed By: #### 1 [id number], [id number], [id number], [id number] ####[facility] (DEFAULT)[address] [place] [address] 93080 UA Clarity SL CLOUDY Abnormal CLEAR [facility] Comment on above: Performed By: #### 1 [id number], [id number], [id number], [id number] ####[facility] (DEFAULT)[address] [place] [address] 69246 UA Leuk Est Negative Normal NEGATIVE [facility] Comment on above: Performed By: #### 1 [id number], [id number], [id number], [id number] ####[facility] (DEFAULT)[address] [place] [address] 63480 UA Nitrite Negative Normal NEGATIVE [facility] Comment on above: Performed By: #### 1 [id number], [id number], [id number], [id number] ####[facility] (DEFAULT)[address] [place] [address] 16705 UA pH 6.0 Normal 5-8 [facility] Comment on above: Performed By: #### 1 [id number], [id number], [id number], [id number] ####[facility] (DEFAULT)[address] [place] [address] 81122 UA Protein 30 Abnormal NEGATIVE [facility] Comment on above: Performed By: #### 1 [id number], [id number], [id number], [id number] ####[facility] (DEFAULT)[address] [place] [address] 49630 UA Spec Grav >=1.030 Normal 1.001-1.035 [facility] Comment on above: Performed By: #### 1 [id number], [id number], [id number], [id number] ####[facility] (DEFAULT)[address] [place] [address] 67685 UA Urobilinogen 0.2 mg/dL Normal 0.2-1.0 [facility] Comment on above: Performed By: #### 1 [id number], [id number], [id number], [id number] ####[facility] (DEFAULT)[address] [place] [address] 09918 Urine Source Voided Normal [facility] Comment on above: Performed By: #### 1 [id number], [id number], [id number], [id number] ####[facility] (DEFAULT)[address] [place] [address] 74094 XR Chest 1 View Frontalon XR Chest 1 View Frontal HISTORY: Dyspnea . Chest pain. COMPARISON: None available TECHNIQUE: Portable AP view of the chest FINDINGS: The cardiomediastinal silhouette is within normal limits. No pneumothorax, pleural effusion, or consolidation. Small nodular density of the right lung base may represent overlapping of structures or may be infectious/inflamm atory in etiology. No acute osseous abnormality. IMPRESSION: Small nodular density of the right lung base may represent overlapping of structures or may be infectious/inflamm atory in etiology. Continued follow-up recommended to ensure resolution. Final Signed (Electronic Signature): Max Wang DO 03/18/23 8:44 am Technologist: MADHAVI Vargas [facility] .Auto Diff 1on 03-16-2023 Auto Rice % 3 % Normal 12 [facility] Comment on above: Performed By: #### 6 [id number] #### [facility] (DEFAULT) [address] [place] [address] 86134 Baso Abs# 0.1 x10 Normal 0.0-0.2 [facility] Comment on above: Performed By: #### 6 [id number] #### [facility] (DEFAULT) [address] [place] [address] 03584 Basophils/100 WBC (Bld) 1.3 % Normal 0.2-2.0 [facility] Comment on above: Performed By: #### 6 [id number] #### [facility] (DEFAULT) [address] [place] [address] 42081 Eos Abs# 0.0 x10 Normal 0.0-0.4 [facility] Comment on above: Performed By: #### 6 [id number] #### [facility] (DEFAULT) [address] [place] [address] 96488 Eosinophils/100 WBC (Bld) 0.0 % Low 0.9-4.0 [facility] Comment on above: Performed By: #### 6 [id number] #### [facility] (DEFAULT) [address] [place] [address] 84601 Lymph Abs# 0.9 x10 Low 1.3-2.9 [facility] Comment on above: Performed By: #### 6 [id number] #### [facility] (DEFAULT) [address] [place] [address] 90786 Lymphocytes/100 WBC (Bld) 11 % Low 14-48 [facility] Comment on above: Performed By: #### 6 [id number] #### [facility] (DEFAULT) [address] [place] [address] 84025 Rice Abs# 0.2 x10 Normal 0.0-0.8 [facility] Comment on above: Performed By: #### 6 [id number] #### [facility] (DEFAULT) [address] [place] [address] 98098 Neut Abs# 6.6 x10 Normal 1.5-9.2 [facility] Comment on above: Performed By: #### 6 [id number] #### [facility] (DEFAULT) [address] [place] [address] 55214 Neutrophils/100 WBC (Bld) 85 % Normal 44-88 [facility] Comment on above: Performed By: #### 6 [id number] #### [facility] (DEFAULT) [address] [place] [address] .QC SARS-CoV-2 (COVID-19)/Fl u/RSV (GeneXpert)on 03-16-2023 Internal Control Pass [facility] Comment on above: Order Comment: Order ed by Eleanor.[[email or web address]] Performed By: #### 6 [id number] #### [facility] (DEFAULT) [address] [place] [address] 96639 Acetone Qlon 03-16-2023 Acetone SMALL [facility] Comment on above: Performed By: #### 6 [id number] ####[facility] (DEFAULT)[address] [place] [address] 12014 Arterial Blood Gas Standardo n 03-16-2023 Base Excess Art -21.7 mmol/L Low -3.3-2.3 [facility] Comment on above: Performed By: #### 6 [id number] #### [facility] (DEFAULT) [address] [place] [address] 65992 Breakpoint Hemo [facility] Comment on above: Performed By: #### 6 [id number] #### [facility] (DEFAULT) [address] [place] [address] 95272 Device Room Air Normal [facility] Comment on above: Performed By: #### 6 [id number] #### [facility] (DEFAULT) [address] [place] [address] 86471 Fio2 Art 21.0 % Normal 21.0-100.0 [facility] Comment on above: Performed By: #### 6 [id number] #### [facility] (DEFAULT) [address] [place] [address] 35728 HCO3 (Bld) [Moles/Vol] 6.0 mmol/L Low 22.0-27.0 [facility] Comment on above: Performed By: #### 6 [id number] #### [facility] (DEFAULT) [address] [place] [address] 87485 Oxygen saturation in Blood 97.9 % Normal 95.0-100. 0 [facility] Comment on above: Performed By: #### 6 [id number] #### [facility] (DEFAULT) [address] [place] [address] 87683 pCO2 Art 19 mmHg Critically abnormal 34-44 [facility] Comment on above: Result Comment: Resu lts handed to Dr Gonzalez by on 03/16/23 @ 1045 Performed By: #### 6 [id number] #### [facility] (DEFAULT) [address] [place] [address] 89827 pH Art 7.11 Critically abnormal 7.37-7.44 [facility] Comment on above: Result Comment: Resu lts handed to Dr Gonzalez by on 03/16/23 @ 1045, RBD Performed By: #### 6 [id number] #### [facility] (DEFAULT) [address] [place] [address] 83552 pO2 Art 208 mmHg High 75-100 [facility] Comment on above: Performed By: #### 6 [id number] #### [facility] (DEFAULT) [address] [place] [address] 86175 Puncture Site Right Brachial Normal [facility] Comment on above: Performed By: #### 6 [id number] #### [facility] (DEFAULT) [address] [place] [address] 04911 Rate: 18 Invalid Interpretation Code [facility] Comment on above: Performed By: #### 6 [id number] #### [facility] (DEFAULT) [address] [place] [address] 41362 [facility] Standardon 03-16-2023 eGFR Non AA >60 Invalid Interpretation Code [facility] Comment on above: Order Comment: While on Insulin Drip Performed By: #### 4 [id number] #### [facility] (DEFAULT) [address] [place] [address] 43602 eGFR AA >60 Invalid Interpretation Code [facility] Comment on above: Order Comment: While on Insulin Drip Performed By: #### 4 [id number] #### [facility] (DEFAULT) [address] [place] [address] 53099 Anion gap [Moles/Vol] 14.8 mmol/L Normal 5.0-19.0 [facility] Comment on above: Order Comment: While on Insulin Drip Performed By: #### 4 [id number] #### [facility] (DEFAULT) [address] [place] [address] 36877 Calcium [Mass/Vol] 7.7 mg/dL Low 8.9-10.3 [facility] Comment on above: Order Comment: While on Insulin Drip Performed By: #### 4 [id number] #### [facility] (DEFAULT) [address] [place] [address] 89258 Chloride [Moles/Vol] 108 mmol/L Normal 101-111 [facility] Comment on above: Order Comment: While on Insulin Drip Performed By: #### 4 [id number] #### [facility] (DEFAULT) [address] [place] [address] 96149 CO2 [Moles/Vol] 14 mmol/L Low 21-32 [facility] Comment on above: Order Comment: While on Insulin Drip Performed By: #### 4 [id number] #### [facility] (DEFAULT) [address] [place] [address] 49067 Creatinine [Mass/Vol] 0.69 mg/dL Normal 0.60-1.30 [facility] Comment on above: Order Comment: While on Insulin Drip Performed By: #### 4 [id number] #### [facility] (DEFAULT) [address] [place] [address] 31607 Glucose [Mass/Vol] 295.0 mg/dL High 74.0-118.0 [facility] Comment on above: Order Comment: While on Insulin Drip Performed By: #### 4 [id number] #### [facility] (DEFAULT) [address] [place] [address] 54326 Osmolality 278 mOsm/L Invalid Interpretation Code [facility] Comment on above: Order Comment: While on Insulin Drip Performed By: #### 4 [id number] #### [facility] (DEFAULT) [address] [place] [address] 44777 Potassium [Moles/Vol] 3.8 mmol/L Normal 3.6-5.1 [facility] Comment on above: Order Comment: While on Insulin Drip Result Comment: Pota ssium Therapy Performed By: #### 4 [id number] #### [facility] (DEFAULT) [address] [place] [address] 55808 Sodium [Moles/Vol] 133.0 mmol/L Low 136.0-144.0 [facility] Comment on above: Order Comment: While on Insulin Drip Performed By: #### 4 [id number] #### [facility] (DEFAULT) [address] [place] [address] 87742 Urea nitrogen [Mass/Vol] 16 mg/dL Normal 8-26 [facility] Comment on above: Order Comment: While on Insulin Drip Performed By: #### 4 [id number] #### [facility] (DEFAULT) [address] [place] [address] 61558 Urea nitrogen/Creatinine [Mass ratio] 23.1 mg/mg High 4.6-16.2 [facility] Comment on above: Order Comment: While on Insulin Drip Performed By: #### 4 [id number] #### [facility] (DEFAULT) [address] [place] [address] 13323 CBC w/ Auto Diffon 3 Erythrocyte distribution width (RBC) [Ratio] 15.4 % High 11.5-15.0 [facility] Comment on above: Performed By: #### 6 [id number] #### [facility] (DEFAULT) [address] [place] [address] 50847 Hematocrit (Bld) [Volume fraction] 41.6 % High 33.7-40.4 [facility] Comment on above: Performed By: #### 6 [id number] #### [facility] (DEFAULT) [address] [place] [address] 24762 Hemoglobin (Bld) [Mass/Vol] 13.1 g/dL Normal 11.3-15. 9 [facility] Comment on above: Performed By: #### 6 [id number] #### [facility] (DEFAULT) [address] [place] [address] 90101 Man Diff? Auto Invalid Interpretation Code [facility] Comment on above: Performed By: #### 6 [id number] #### [facility] (DEFAULT) [address] [place] [address] 30140 MCH (RBC) [Entitic mass] 25 pg Normal 24-34 [facility] Comment on above: Performed By: #### 6 [id number] #### [facility] (DEFAULT) [address] [place] [address] 08807 MCHC (RBC) [Mass/Vol] 32 g/dL Normal 26-37 [facility] Comment on above: Performed By: #### 6 [id number] #### [facility] (DEFAULT) [address] [place] [address] 62066 MCV (RBC) [Entitic vol] 81 fL Normal 81-100 [facility] Comment on above: Performed By: #### 6 [id number] #### [facility] (DEFAULT) [address] [place] [address] 76432 Platelet 298 x10 Normal 138-427 [facility] Comment on above: Performed By: #### 6 [id number] #### [facility] (DEFAULT) [address] [place] [address] 88079 Platelet mean volume (Bld) [Entitic vol] 8.6 fL Normal 6.3-10.2 [facility] Comment on above: Performed By: #### 6 [id number] #### [facility] (DEFAULT) [address] [place] [address] 21103 RBC 5.14 x10 Normal 3.70-5.30 [facility] Comment on above: Performed By: #### 6 [id number] #### [facility] (DEFAULT) [address] [place] [address] 68153 WBC 7.8 x10 Normal 3.5-10.5 [facility] Comment on above: Performed By: #### 6 [id number] #### [facility] (DEFAULT) [address] [place] [address] 41751 CMP Standardon 03-16-2023 Breakpoint Chem Normal [facility] Comment on above: Performed By: #### 6 [id number] #### [facility] (DEFAULT) [address] [place] [address] 65268 eGFR Non AA >60 Invalid Interpretation Code [facility] Comment on above: Performed By: #### 6 [id number] #### [facility] (DEFAULT) [address] [place] [address] 64612 eGFR AA >60 Invalid Interpretation Code [facility] Comment on above: Performed By: #### 6 [id number] #### [facility] (DEFAULT) [address] [place] [address] 04283 Albumin [Mass/Vol] 3.9 g/dL Normal 3.5-5.0 [facility] Comment on above: Performed By: #### 6 [id number] #### [facility] (DEFAULT) [address] [place] [address] 83757 Albumin/Globulin [Mass ratio] 1.1 {ratio} Low 1.4-2.6 [facility] Comment on above: Performed By: #### 6 [id number] #### [facility] (DEFAULT) [address] [place] [address] 05828 Alk Phos 76 IU/L Normal 32-91 [facility] Comment on above: Performed By: #### 6 [id number] #### [facility] (DEFAULT) [address] [place] [address] 52686 ALT [Catalytic activity/Vol] 17.0 U/L Normal 14.0-54.0 [facility] Comment on above: Performed By: #### 6 [id number] #### [facility] (DEFAULT) [address] [place] [address] 59541 Anion gap [Moles/Vol] 26.3 mmol/L High 5.0-19.0 [facility] Comment on above: Performed By: #### 6 [id number] #### [facility] (DEFAULT) [address] [place] [address] 06480 AST [Catalytic activity/Vol] 19 U/L Normal 15-41 [facility] Comment on above: Performed By: #### 6 [id number] #### [facility] (DEFAULT) [address] [place] [address] 80038 Bili Total 1.6 mg/dL High 0.3-1.2 [facility] Comment on above: Performed By: #### 6 [id number] #### [facility] (DEFAULT) [address] [place] [address] 60988 Calcium [Mass/Vol] 8.0 mg/dL Low 8.9-10.3 [facility] Comment on above: Performed By: #### 6 [id number] #### [facility] (DEFAULT) [address] [place] [address] 95926 Chloride [Moles/Vol] 97 mmol/L Low 101-111 [facility] Comment on above: Performed By: #### 6 [id number] #### [facility] (DEFAULT) [address] [place] [address] 58618 CO2 [Moles/Vol] 8 mmol/L Low 21-32 [facility] Comment on above: Performed By: #### 6 [id number] #### [facility] (DEFAULT) [address] [place] [address] 62000 Creatinine [Mass/Vol] 0.99 mg/dL Normal 0.60-1.30 [facility] Comment on above: Performed By: #### 6 [id number] #### [facility] (DEFAULT) [address] [place] [address] 68730 Globulin (S) [Mass/Vol] 3.4 g/dL Normal 1.5-4.3 [facility] Comment on above: Performed By: #### 6 [id number] #### [facility] (DEFAULT) [address] [place] [address] 57889 Glucose [Mass/Vol] 645.0 mg/dL Critically abnormal 74.0-118.0 [facility] Comment on above: Result Comment: Crit ical result GLU 645 mg/dL called to and read back by Sanjuana BENSON RN at 16-Mar-2023 11:05 by Anahy. Performed By: #### 6 [id number] #### [facility] (DEFAULT) [address] [place] [address] 97784 Osmolality 285 mOsm/L Invalid Interpretation Code [facility] Comment on above: Performed By: #### 6 [id number] #### [facility] (DEFAULT) [address] [place] [address] 13229 Potassium [Moles/Vol] 5.3 mmol/L High 3.6-5.1 [facility] Comment on above: Performed By: #### 6 [id number] #### [facility] (DEFAULT) [address] [place] [address] 75559 Protein [Mass/Vol] 7.3 g/dL Normal 6.5-8.1 [facility] Comment on above: Performed By: #### 6 [id number] #### [facility] (DEFAULT) [address] [place] [address] 61723 Sodium [Moles/Vol] 126.0 mmol/L Low 136.0-144.0 [facility] Comment on above: Performed By: #### 6 [id number] #### [facility] (DEFAULT) [address] [place] [address] 07803 Urea nitrogen [Mass/Vol] 16 mg/dL Normal 8-26 [facility] Comment on above: Performed By: #### 6 [id number] #### [facility] (DEFAULT) [address] [place] [address] 55341 Urea nitrogen/Creatinine [Mass ratio] 16.1 mg/mg Normal 4.6-16.2 [facility] Comment on above: Performed By: #### 6 [id number] #### [facility] (DEFAULT) [address] [place] [address] 68468 COVID/Flu/RSV (GeneXpert)on 03-16-2023 Flu A (GXpert COVFLURSV) Negative Normal Negative [facility] Comment on above: Performed By: #### 6 [id number] #### [facility] (DEFAULT) [address] [place] [address] Flu B (GXpert COVFLURSV) Negative Normal Negative [facility] Comment on above: Performed By: #### 6 [id number] #### [facility] (DEFAULT) [address] [place] [address] 56339 RSV (GXpert COVFLURSV) Negative Normal Negative [facility] Comment on above: Performed By: #### 6 [id number] #### [facility] (DEFAULT) [address] [place] [address] 51682 SARS-CoV-2 (COVID-19) RNA CARMEN+probe Ql (Unsp spec) Positive Critically abnormal Negative [facility] Comment on above: Result Comment: Resu lts Called To September By TB And Read Back For Confirmation On 03/16/2023 11:14:35 EDT. Performed by PCR methodology. Performed By: #### 6 [id number] #### [facility] (DEFAULT) [address] [place] [address] 93790 ED Clinical Summaryon 2022 ED Clinical Summary [facility] [address] [place] [address] ED Clinical Summary PERSON INFORMATION Name: DOUGLAS CORDOVA Age: 27 Years Sex: FEMALE : 1995 MRN: Acct#: Visit Reason: Hyperglycemia; DKA, COVID + Arrival: 03/16/2023 09:20:00 Discharge: LOS: 000 03:32 Check In: 03/16/2023 09:20:00 Checkout:03/16/2023 12:52:50 Address: [address] [facility] [address] PCP: ARCADIO IGLESIAS PROVIDER INFORMATION Provider Role Assigned Unassigned Mannei Gonzalez MD ED Provider 03/16/2023 09:20:26 October, [...] 1:Diabetic ketoacidosis; 2:COVID-19 Patient Understands: Yes - Patient/family/car egiver verbalizes understanding of instructions given Comment: [facility] ED Note-Nursingon 03-16-2023 ED Note-Nursing Patient presents with complaints of increased blood sugar. Patient with a history of Type 1 diabetes. Patient in insulin, however states she has not had her insulin in 3 days because she has not been able to get her prescription. Patient also complains of nausea and vomiting. Patient with an obvious acetone smell about her. [facility] ED Patient Education Noteon 03-16-2023 ED Patient Education Note Education Materials [facility] ED Patient Summaryon 023 ED Patient Summary [facility] - Emergency Department [address] [place], [place] [id number] PATIENT DISCHARGE INSTRUCTIONS Patient Information Name: DOUGLAS CORDOVA Age: 27 Years Date of : 1995 Reason For Visit: Hyperglycemia; DKA, COVID + Arrival Time: 03/16/2023 09:20:00 Primary Care Physician: ARCADIO IGLESIAS Attending Physician: Nirav Armenta MD Comment: Visit Diagnosis: Diagnoses This Visit COVID-19 (U07.1) Diabetic ketoacidosis (E11.10) Hyperglycemia ([id number]) The Pharmacy at [facility] is open Friday through Friday [...] alcohol and/or drug addiction problems; contact the [facility] 20/01 Crisis Hotline -Text 6TYHD bc [phone]. If you received any narcotics, sedation, or [...] treatment you received today in the [facility] Emergency Department were for an urgent problem and are not intended as complete care. It is important for you to follow up with a doctor, nurse practitioner, or physician?s chemist assistant for ongoing care. If your symptoms [...] so we can reach you if necessary. [facility] Emergency Department has provided you with a complete list of medications post discharge. Please inform your napper fixer/provider of your visit and for further instruction on these medications. Any specific questions regarding your chronic medications and dosages should be discussed with your primary care physician(s) and/or pharmacist. Medications to Continue That Have Not Changed Other Medications amphetamine-dextro amphetamine (amphetamine-dextr oamphetamine 30 mg oral capsule, extended release) carisoprodol (carisoprodol 350 mg oral tablet) Durable Medical Equipment for Prescription ([employer] PODS (GEN 4) 5PK) See instructions. gabapentin [...] novel coronavirus 03/16/23 Problem added by Rule (IC_COVID19_MAGJose_Meng SCHUSTER) following SARS-CoV-2 (COVID-19)/Flu/RSV (GeneXpert) from Nasopharyngeal Swab [...] Cough ? (more content not included)... Normal [facility] Magnesiumon 03-16-2023 Magnesium [Mass/Vol] 1.82 mg/dL Normal 1.80-2.50 [facility] Comment on above: Performed By: #### 6 [id number] #### [facility] (DEFAULT) [address] [place] [address] POCT Glucose Levelon 023 Glucose [Mass/Vol] 210 mg/dL High [address] [place] [address] Comment on above: Performed By: #### 4 [id number] #### [facility] (DEFAULT) [address] [place] [address]2873 Glucose [Mass/Vol] 236 mg/dL High [address] [place] [address] Comment on above: Performed By: #### 4 [id number] #### [facility] (DEFAULT) [address] [place] [address] 52754 Glucose [Mass/Vol] 297 mg/dL High [address] [place] [address] Comment on above: Performed By: #### 6 [id number] #### [facility] (DEFAULT) [address] [place] [address] 48979 Glucose [Mass/Vol] 273 mg/dL High [address] [place] [address] Comment on above: Performed By: #### 4 [id number] #### [facility] (DEFAULT) [address] [place] [address] 03206 Glucose [Mass/Vol] 297 mg/dL High [address] [place] [address] Comment on above: Performed By: #### 4 [id number] #### [facility] (DEFAULT) [address] [place] [address] 36460 Glucose [Mass/Vol] 563 mg/dL Critically abnormal [address] [place] [address] Comment on above: Performed By: #### 4 [id number] #### [facility] (DEFAULT) [address] [place] [address] 53376 Test Serum 1on Preg Serum Internal Control OK [facility] Comment on above: Performed By: #### 4 [id number] #### [facility] (DEFAULT) [address] [place] [address] 39330 Test Serum Qual Negative [facility] Comment on above: Performed By: #### 4 [id number] #### [facility] (DEFAULT) [address] [id number] Progress Note - Nurseon 02-28 Progress Note - Nurse This mail delivery supervisor called to urgent care waiting room area by clerical staff-advised that pt was discharged from hospital and needed a ride home. Upon further investigation, pt was found to have signed out AMA from , confirmed with 2S salvager-and advised staff that she would be walking home. This mail delivery supervisor follows up with patient. Pt sitting in urgent care waiting area with emesis bag in hand, barefoot, tearful. Pt advises she did check herself out of care against medical advice. This mail delivery supervisor asks if she feels safe to go home at this time and if she has access to her insulin-pt advises she does. This mail delivery supervisor asks if she could use any additional assistance or resources, pt declines. Pt provided with slipper socks, ekg patches removed from legs and arms, walked to ER waiting area and provided with diet drink and taxi voucher for $7.00 to return to [facility], after hours taxi transporting her home. [Electronically Signed on: 03/16/2023 17:51 EDT] ____ Shellie Turner RN [Verified on: 03/16/2023 17:51 EDT] ____ Shellie Turner RN [facility] Progress Note - Nurse Patient left with all of her belongings and walked out of room to elevator without any socks. [Electronically Signed on: 03/16/2023 18:10 EDT] ____ Aster Bernal RN [Verified on: 03/16/2023 18:10 EDT] ____ Aster Bernal RN [facility] Progress Note - Nurse Upon doing assessment/ admission history patient requested something to drink. I informed her and reminded her that every time she drinks she has a large emesis. She didn't like that I refused her fluids and she said she wanted to leave. I had her sign an AMA paper. Then I notified Dr. Armenta and Suzi the mail delivery supervisor. [Electronically Signed on: 03/16/2023 17:46 EDT] ____ Aster Bernal RN [Verified on: 03/16/2023 17:46 EDT] ____ Aster Bernal RN [facility] UA [id number] 03-16-2023 UA Amorph. 1+ [facility] Comment on above: Order Comment: Urina lysis Microscopic order added on by imbookin (Pogby) Expert Rules system. Performed By: #### 5 [id number], [id number] #### [facility] (DEFAULT) [address] [place] [address] UA Bacteria Rare [facility] Comment on above: Order Comment: Urina lysis Microscopic order added on by imbookin (Pogby) Expert Rules system. Performed By: #### 5 [id number], [id number] #### [facility] (DEFAULT) [address] [place] [address] UA RBC 0-2 [facility] Comment on above: Order Comment: Urina lysis Microscopic order added on by imbookin (Pogby) Expert Rules system. Performed By: #### 5 [id number], [id number] #### [facility] (DEFAULT) [address] [place] [address] UA Squam Epi Few [facility] Comment on above: Order Comment: Urina lysis Microscopic order added on by imbookin (Pogby) Expert Rules system. Performed By: #### 5 [id number], [id number] #### [facility] (DEFAULT) [address] [place] [address] UA WBC None Seen [facility] Comment on above: Order Comment: Urina lysis Microscopic order added on by imbookin (Pogby) Expert Rules system. Performed By: #### 5 [id number], [id number] #### [facility] (DEFAULT) [address] [place] [address] UA w Culture if Ind Standard on 03-16-2023 Breakpoint UA [facility] Comment on above: Performed By: #### 5 [id number], [id number] #### [facility] (DEFAULT) [address] [place] [address] Color (U) Yellow [facility] Comment on above: Performed By: #### 5 [id number], [id number] #### [facility] (DEFAULT) [address] [place] [address] Culture? No Normal [facility] Comment on above: Result Comment: Resu lt created by rule GL_MAGR_ADD_UA_CULT Result created by rule GL_MAGR_ADD_UA_CULT1 Performed By: #### 5 [id number], [id number] #### [facility] (DEFAULT) [address] [place] [address] Glucose (U) [Mass/Vol] mg/dL Normal [facility] Comment on above: Performed By: #### 5 [id number], [id number] #### [facility] (DEFAULT) [address] [place] [address] Ketones Ql (U) >=80 [facility] Comment on above: Performed By: #### 5 [id number], [id number] #### [facility] (DEFAULT) [address] [place] [address] Micro? Indicated Invalid Interpretation [facility] Comment on above: Result Comment: Resu lt created by rule GL_MAGR_ADD_UA_MICRO Performed By: #### 5 [id number], [id number] #### [facility] (DEFAULT) [address] [place] [address] UA Bilirubin Negative Normal [facility] Comment on above: Performed By: #### 5 [id number], [id number] #### [facility] (DEFAULT) [address] [place] [address] 48[address] UA Blood TRACE Abnormal NEGATIVE [facility] Comment on above: Performed By: #### 5 [id number], [id number] #### [facility] (DEFAULT) [address] [place] [address]23 UA Clarity CLEAR Normal CLEAR [facility] Comment on above: Performed By: #### 5 [id number], [id number] #### [facility] (DEFAULT) [address] [place] [address] 17811 UA Leuk Est Negative Normal NEGATIVE [facility] Comment on above: Performed By: #### 5 [id number], [id number] #### [facility] (DEFAULT) [address] [place] [address] 10808 UA Nitrite Negative Normal NEGATIVE [facility] Comment on above: Performed By: #### 5 [id number], [id number] #### [facility] (DEFAULT) [address] [place] [address] 07970 UA pH 6.0 Normal 5-8 [facility] Comment on above: Performed By: #### 5 [id number], [id number] #### [facility] (DEFAULT) [address] [place] [address] 31380 UA Protein Negative Normal NEGATIVE [facility] Comment on above: Performed By: #### 5 [id number], [id number] #### [facility] (DEFAULT) [address] [place] [address] 32534 UA Spec Grav 1.025 Normal 1.001-1.035 [facility] Comment on above: Performed By: #### 5 [id number], [id number] #### [facility] (DEFAULT) [address] [place] [address] 09091 UA Urobilinogen 0.2 mg/dL Normal 0.2-1.0 [facility] Comment on above: Performed By: #### 5 [id number], [id number] #### [facility] (DEFAULT) [address] [place] [address] Urine Source Clean Catch Normal [facility] Comment on above: Performed By: #### 5 [id number], [id number] #### [facility] (DEFAULT) [address] [place] [address] ACETONE SERUMon 08-25-2022 ACETONE SMALL Abnormal NEGATIVE [facility] Comment on above: Performed By: #### A CETON, PREG #### [facility] [address] [place] [address] Dr. Darleen Cho CBC AUTO DIFFon 08-25-2022 BASO # 0.1 103/ul Normal 0.0-0.1 [facility] Comment on above: Performed By: #### B MP #### [facility] [address] [place] [address] Dr. Darleen Cho Basophils/100 WBC (Bld) 0.4 % Normal 0.2-2.0 [facility] Comment on above: Performed By: #### B MP #### [facility] [address] [place] [address] Dr. Darleen Cho EO # 0.1 103/ul Normal 0.0-0.7 [facility] Comment on above: Performed By: #### B MP #### [facility] [address] [place] [address] Dr. Darleen Cho Eosinophils/100 WBC (Bld) 0.3 % Critically low 0.9-7. 0 [facility] Comment on above: Performed By: #### B MP #### [facility] [address] [place] [address] Dr. Darleen Cho Erythrocyte distribution width (RBC) [Ratio] 14.6 % Normal 11.0-15.0 [facility] Comment on above: Performed By: #### B MP #### [facility] [address] [place] [address] Dr. Darleen Cho Hematocrit (Bld) [Volume fraction] 43.9 % Normal 36.0-48.0 [facility] Comment on above: Performed By: #### B MP #### [facility] [address] [address] [address] Darleen Cho Hemoglobin (Bld) [Mass/Vol] 13.8 g/dL Normal 12.0-16. 0 [facility] Comment on above: Performed By: #### B MP #### [facility] [address] [address] [address] Darleen Cho IG # 0.25 10e3/ul Critically high 0.00-0.03 [facility] Comment on above: Performed By: #### B MP #### [facility] [address] [address] [address] Darleen Cho IG % 1.1 % Critically high 0.0-0.5 [facility] Comment on above: Performed By: #### B MP #### [facility] [address] [place] [address] Dr. Darleen Cho LYMPH # 2.3 103/ul Normal 1.2-3.8 [facility] Comment on above: Performed By: #### B MP #### [facility] [address] [place] [address] Dr. Darleen Cho Lymphocytes/100 WBC (Bld) 10.4 % Critically low 20.5-6 0.0 [facility] Comment on above: Performed By: #### B MP #### [facility] [address] [place] [address] Dr. Darleen Cho MANUAL DIFF REQ NO Normal [facility] Comment on above: Performed By: #### B MP #### [facility] [address] [address] [address] Darleen Cho MCH (RBC) [Entitic mass] 24.1 pg Critically low 26.7-34 .0 [facility] Comment on above: Performed By: #### B MP #### [facility] [address] [place] [address] Dr. Darleen Cho MCHC (RBC) [Mass/Vol] 31.4 g/dL Normal 29.9-35.2 [facility] Comment on above: Performed By: #### B MP #### [facility] [address] [address] [address] Darleen Cho MCV (RBC) [Entitic vol] 76.7 fL Critically low 81.0-99. 0 [facility] Comment on above: Performed By: #### B MP #### [facility] [address] [place] [address] Dr. Darleen Cho MONO # 0.3 103/ul Normal 0.3-0.8 [facility] Comment on above: Performed By: #### B MP #### [facility] [address] [place] [address] Dr. Darleen Cho Monocytes/100 WBC (Bld) 1.2 % Critically low 1.7-12.0 [facility] Comment on above: Performed By: #### B MP #### [facility] [address] [place] [address] Dr. Darleen Cho NEUT # 19.4 103/ul Critically high 1.4-6.5 [facility] Comment on above: Performed By: #### B MP #### [facility] [address] [place] [address] Dr. Darleen Cho Neutrophils/100 WBC (Bld) 86.6 % Critically high 43.0- 75.0 [facility] Comment on above: Performed By: #### B MP #### [facility] [address] [place] [address] Dr. Darleen Cho Platelet mean volume (Bld) [Entitic vol] 9.1 fL Critically low 9.5-13.5 [facility] Comment on above: Performed By: #### B MP #### [facility] [address] [place] [address] Dr. Darleen Cho PLT 557 103/ul Critically high 150-450 [facility] Comment on above: Performed By: #### B MP #### [facility] [address] [place] [address] Dr. Darleen Cho RBC 5.72 106/ul Critically high 4.20-5.40 [facility] Comment on above: Performed By: #### B MP #### [facility] [address] [place] [address] Dr. Darleen Cho WBC 22.4 103/ul Critically high 4.0-11.0 [facility] Comment on above: Performed By: #### B MP #### [facility] [address] [address] [address] Darleen Cho CULTURE BLOODon 08-25-2022 Microscopic examination of blood, culture Culture Observations: NO GROWTH AT 5 DAYS. Normal [facility] Comment on above: Performed By: #### B MP #### [facility] [address] [address] [address] Darleen Cho Microscopic examination of blood, culture Culture Observations: NO GROWTH AT 5 DAYS. Normal [facility] Comment on above: Performed By: #### B MP #### [facility] [address] [place] [address] Dr. Darleen Cho CULTURE URINEon 08-25-2022 CULTURE URINE Culture Observations: NO GROWTH. Normal [facility] Comment on above: Performed By: #### B MP #### [facility] [address] [place] [address] Dr. Darleen Cho Covid-19 PCR (CVDTB)on 08-01 SARS-CoV-2 (COVID-19) RNA CARMEN+probe Ql (Unsp spec) Not detected Normal NOT DETECTED [facility] Comment on above: Result Comment: When [...] for this test is supported by the [place] of Health and Human Service's declaration that [...] used). Performed By: #### C VDTBH #### [facility] [address] [address] [address] Darleen Cho ER URINE PROFILEon 3 Bilirubin Ql (U) SMALL Abnormal NEGATIVE [facility] Comment on above: Performed By: #### U MICRO, ERUR #### [facility] [address] [place] [address] Dr. Darleen Cho Clarity (U) CLEAR Normal CLEAR [facility] Comment on above: Performed By: #### U MICRO, ERUR #### [facility] [address] [address] [address] Darleen Cho Color (U) LT. YELLOW Normal YELLOW [facility] Comment on above: Performed By: #### U MICRO, ERUR #### [facility] [address] [place] [address] Dr. Darleen ROBLES A micrscopic examination will be performed if indicated. Normal [facility] Comment on above: Performed By: #### U MICRO, ERUR #### [facility] [address] [place] [address] Dr. Darleen Cho Glucose Ql (U) 500 mg/dl Abnormal NEGATIVE [facility] Comment on above: Performed By: #### U MICRO, ERUR #### [facility] [address] [place] [address] Dr. Darleen Cho Hemoglobin Ql (U) MODERATE Abnormal NEGATIVE [facility] Comment on above: Performed By: #### U MICRO, ERUR #### [facility] [address] [address] [address] Darleen Cho Ketones Ql (U) >=80 Abnormal NEGATIVE [facility] Comment on above: Performed By: #### U MICRO, ERUR #### [facility] [address] [place] [address] Dr. Darleen Cho LEUKOCYTES Negative Normal NEGATIVE [facility] Comment on above: Performed By: #### U MICRO, ERUR #### [facility] [address] [place] [address] Dr. Darleen Cho Nitrite Ql (U) Negative Normal NEGATIVE [facility] Comment on above: Performed By: #### U MICRO, ERUR #### [facility] [address] [address] [address] Darleen Cho pH (U) 5.5 [pH] Normal 5-9 [facility] Comment on above: Performed By: #### U MICRO, ERUR #### [facility] [address] [place] [address] Dr. Darleen Cho Protein (U) [Mass/Vol] 100 mg/dL Abnormal NEGAT SHREYA/ TRACE [facility] Comment on above: Performed By: #### U MICRO, ERUR #### [facility] [address] [place] [address] Dr. Darleen Cho SPEC GRAVITY >=1.030 Abnormal 1.005-<=1.025 [facility] Comment on above: Performed By: #### U MICRO, ERUR #### [facility] [address] [place] [address] Dr. Darleen Cho UR MICRO IND INDICATED Normal [facility] Comment on above: Performed By: #### U MICRO, ERUR #### [facility] [address] [place] [address] Dr. Darleen Cho Urobilinogen Qn (U) 0.2 {Ophelia'U}/dL Normal 0.2 - 1. 0 [facility] Comment on above: Performed By: #### U MICRO, ERUR #### [facility] [address] [place] [address] Dr. Darleen Cho HIV 1/2 RAPID (EXPOSURE ONLY )on 08-25-2022 HIV AB Non-Reactive Normal NON-REACTIVE [facility] Comment on above: Performed By: #### R PDHIV #### [facility] [address] [place] [address] Dr. Darleen Cho HIV AG Non-Reactive Normal NON-REACTIVE [facility] Comment on above: Performed By: #### R PDHIV #### [facility] [address] [place] [address] Dr. Darleen Cho INTERNAL CONTROLS Within Normal Limits Normal Within Normal Limits [facility] Comment on above: Performed By: #### R PDHIV #### [facility] [address] [address] [address] Darleen Cho RAPID HIV INFO SEE BELOW Normal [facility] Comment on above: Result Comment: This test is used for the initial screening of the exposure source. Confirmation of all reactive results will be obtained through reference lab testing. Performed By: #### R PDHIV #### [facility] [address] [place] [address] Dr. Darleen Cho PH VENOUS BLOODon 08-25-2022 PCO2 VENOUS 24.1 mmHg Critically low 40.0-52.0 [facility] Comment on above: Performed By: #### B MP #### [facility] [address] [place] [address] Dr. Darleen Cho pH VENOUS 7.288 Critically low 7.330-7.430 [facility] Comment on above: Performed By: #### B MP #### [facility] [address] [place] [address] Dr. Darleen Cho PCO2 VENOUS 18.1 mmHg Critically low 40.0-52.0 [facility] Comment on above: Performed By: #### P HVEN #### [facility] [address] [place] [address] Dr. Dalreen Cho pH VENOUS 7.157 Critically low 7.330-7.430 [facility] Comment on above: Performed By: #### P HVEN #### [facility] [address] [place] [address] Dr. Darleen Cho PCO2 VENOUS 18.3 mmHg Critically low 40.0-52.0 [facility] Comment on above: Performed By: #### P HVEN #### [facility] [address] [place] [address] Dr. Darleen Cho pH VENOUS 6.933 Critically low 7.330-7.430 [facility] Comment on above: Performed By: #### P HVEN #### [facility] [address] [place] [address] Dr. Darleen Cho POINT OF CARE GLUCOSEon - Glucose [Mass/Vol] 201 mg/dL Critically high 74-106 [facility] Comment on above: Performed By: #### B MP #### [facility] [address] [address] [address] Darleen Cho Glucose [Mass/Vol] 373 mg/dL Critically high 74-106 [facility] Comment on above: Performed By: #### B MP #### [facility] [address] [address] [address] Darleen Cho Glucose [Mass/Vol] 433 mg/dL Critically high 74-106 [facility] Comment on above: Performed By: #### B MP #### [facility] [facility] [address] [address] [address] Darleen Cho PREG HCG QUALon 08-25-2022 , QUAL Negative Normal NEGATIVE [facility] Comment on above: Performed By: #### A CETON, PREG #### [facility] [address] [place] [address] Dr. Darleen Cho PROF CHEM 8 (BAS METB)on Anion gap [Moles/Vol] 19.7 mmol/L Normal [facility] Comment on above: Performed By: #### B MP #### [facility] [address] [address] [address] Darleen Cho Calcium [Mass/Vol] 7.2 mg/dL Critically low 8.5-10.1 [facility] Comment on above: Performed By: #### B MP #### [facility] [address] [address] [address] Darleen Cho Chloride [Moles/Vol] 100 mmol/L Normal 98-107 [facility] Comment on above: Performed By: #### B MP #### [facility] [address] [address] [address] Darleen Cho CO2 [Moles/Vol] 13.5 mmol/L Critically low 21.0-32.0 [facility] Comment on above: Performed By: #### B MP #### [facility] [address] [address] [address] Darleen Cho Creatinine [Mass/Vol] 0.71 mg/dL Normal 0.55-1.02 [facility] Comment on above: Performed By: #### B MP #### [facility] [address] [address] [address] Darleen Cho EGFR-AF PAPUA [place] >60 Normal >=60 [facility] Comment on above: Performed By: #### B MP #### [facility] [address] [address] [address] Darleen Cho EGFR-NON AF [place] >60 Normal >=60 [facility] Comment on above: Performed By: #### B MP #### [facility] [address] [address] [address] Darleen Cho Glucose [Mass/Vol] 333 mg/dL Critically high 74-106 [facility] Comment on above: Performed By: #### B MP #### [facility] [address] [address] [address] Darleen Cho Potassium [Moles/Vol] 3.2 mmol/L Critically low 3.5-5.1 [facility] Comment on above: Performed By: #### B MP #### [facility] [address] [address] [address] Darleen Cho Sodium [Moles/Vol] 130 mmol/L Critically low 136-145 [facility] Comment on above: Performed By: #### B MP #### [facility] [address] [address] [address] Darleen Cho Urea nitrogen [Mass/Vol] 8.0 mg/dL Normal 7.0-18.0 [facility] Comment on above: Performed By: #### B MP #### [facility] [address] [address] [address] Darleen Cho Urea nitrogen/Creatinine [Mass ratio] 11.3 mg/mg Normal [facility] Comment on above: Performed By: #### B MP #### [facility] [address] [address] [address] Darleen Cho Anion gap [Moles/Vol] 24.7 mmol/L Normal [facility] Comment on above: Performed By: #### B MP #### [facility] [address] [address] [address] Darleen Cho Calcium [Mass/Vol] 7.2 mg/dL Critically low 8.5-10.1 [facility] Comment on above: Performed By: #### B MP #### [facility] [address] [address] [address] Darleen Cho Chloride [Moles/Vol] 102 mmol/L Normal 98-107 [facility] Comment on above: Performed By: #### B MP #### [facility] [address] [place] [address] Dr. Darleen Cho CO2 [Moles/Vol] 8.6 mmol/L Critically low 21.0-32.0 [facility] Comment on above: Performed By: #### B MP #### [facility] [address] [place] [address] Dr. Darleen Cho Creatinine [Mass/Vol] 0.63 mg/dL Normal 0.55-1.02 [facility] Comment on above: Performed By: #### B MP #### [facility] [address] [place] [address] Dr. Darleen Cho EGFR-AF P[place] >60 Normal >=60 [facility] Comment on above: Performed By: #### B MP #### [facility] [address] [place] [address] Dr. Darleen Cho EGFR-NON AF [place] >60 Normal >=60 [facility] Comment on above: Performed By: #### B MP #### [facility] [address] [address] [address] Darleen Cho Glucose [Mass/Vol] 228 mg/dL Critically high 74-106 [facility] Comment on above: Performed By: #### B MP #### [facility] [address] [place] [address] Dr. Darleen Cho Potassium [Moles/Vol] 3.3 mmol/L Critically low 3.5-5.1 [facility] Comment on above: Performed By: #### B MP #### [facility] [address] [place] [address] Dr. Darleen Cho Sodium [Moles/Vol] 132 mmol/L Critically low 136-145 [facility] Comment on above: Performed By: #### B MP #### [facility] [address] [address] [address] Darleen Cho Urea nitrogen [Mass/Vol] 11.0 mg/dL Normal 7.0-18.0 [facility] Comment on above: Performed By: #### B MP #### [facility] [address] [address] [address] Darleen Cho Urea nitrogen/Creatinine [Mass ratio] 17.5 mg/mg Normal [facility] Comment on above: Performed By: #### B MP #### [facility] [address] [address] [address] Darleen Cho Anion gap [Moles/Vol] 29.5 mmol/L Normal [facility] Comment on above: Performed By: #### B MP #### [facility] [address] [address] [address] Darleen Cho Calcium [Mass/Vol] 8.6 mg/dL Normal 8.5-10.1 [facility] Comment on above: Performed By: #### B MP #### [facility] [address] [place] [address] Dr. Darleen Cho Chloride [Moles/Vol] 94 mmol/L Critically low 98-107 [facility] Comment on above: Performed By: #### B MP #### [facility] [address] [address] [address] Darleen Cho CO2 [Moles/Vol] 5.9 mmol/L Critically low 21.0-32.0 [facility] Comment on above: Performed By: #### B MP #### [facility] [address] [address] [address] Darleen Cho Creatinine [Mass/Vol] 0.94 mg/dL Normal 0.55-1.02 [facility] Comment on above: Performed By: #### B MP #### [facility] [address] [address] [address] Darleen Cho EGFR-AF P[place]UA [place] >60 Normal >=60 [facility] Comment on above: Performed By: #### B MP #### [facility] [address] [address] [address] Darleen Cho EGFR-NON AF P[place] >60 Normal >=60 [facility] Comment on above: Performed By: #### B MP #### [facility] [address] [address] [address] Darleen Cho Glucose [Mass/Vol] 403 mg/dL Critically high 74-106 [facility] Comment on above: Performed By: #### B MP #### [facility] [address] [address] [address] Darleen Cho Potassium [Moles/Vol] 4.4 mmol/L Normal 3.5-5.1 [facility] Comment on above: Performed By: #### B MP #### [facility] [address] [place] [address] Dr. Darleen Cho Sodium [Moles/Vol] 125 mmol/L Critically low 136-145 [facility] Comment on above: Performed By: #### B MP #### [facility] [address] [address] [address] Darleen Cho Urea nitrogen [Mass/Vol] 10.0 mg/dL Normal 7.0-18.0 [facility] Comment on above: Performed By: #### B MP #### [facility] [address] [place] [address] Dr. Darleen Cho Urea nitrogen/Creatinine [Mass ratio] 10.6 mg/mg Normal [facility] Comment on above: Performed By: #### B MP #### [facility] [address] [address] [address] Darleen Cho URINE MICROSCOPIC ONLYon BACTERIA TRACE Abnormal NONE SEEN [facility] Comment on above: Performed By: #### U MICRO, ERUR #### [facility] [address] [address] [address] Darleen Cho Bacteria identified Cx Nom (U) NOT INDICATED Normal [facility] Comment on above: Performed By: #### U MICRO, ERUR #### [facility] [address] [address] [address] Darleen Cho CAST NONE SEEN Normal NONE SEEN [facility] Comment on above: Performed By: #### U MICRO, ERUR #### [facility] [address] [place] [address] Dr. Darleen Cho Crystals LM Nom (Urine sed) NONE SEEN Normal NONE SEE N [facility] Comment on above: Performed By: #### U MICRO, ERUR #### [facility] [address] [place] [address] Dr. Darleen Cho Epithelial cells LM Ql (Urine sed) FEW Abnormal NONE SEEN /RARE [facility] Comment on above: Performed By: #### U MICRO, ERUR #### [facility] [address] [place] [address] Dr. Darleen Cho MUCOUS NONE SEEN Normal NONE SEEN [facility] Comment on above: Performed By: #### U MICRO, ERUR #### [facility] [address] [place] [address] Dr. Darleen Cho RBC 2-5 Abnormal 0-2 [facility] Comment on above: Performed By: #### U MICRO, ERUR #### [facility] [address] [place] [address] Dr. Darleen Cho WBC 0-2 Abnormal NONE SEEN [facility] Comment on above: Performed By: #### U MICRO, ERUR #### [facility] [address] [place] [address] Dr. Darleen Cho XR CHEST 1 Von 08-25-2022 XR CHEST 1 V EXAM: XR CHEST 1 V INDICATION: SHORTNESS OF BREATH. COMPARISON: None. TECHNIQUE: Single frontal view of the chest FINDINGS: Normal cardiomediastinal contours. Clear lungs. No pleural effusion or pneumothorax. No acute osseous abnormality. IMPRESSION: No acute cardiopulmonary process. Electronically authenticated by: ROSA M MENDEZ Date: 2022-08-25 12:46 Normal [facility] Covid-19 PCR (CVDTB)on 02-28 SARS-CoV-2 (COVID-19) RNA CARMEN+probe Ql (Unsp spec) Not detected Normal NOT DETECTED [facility] Comment on above: Result Comment: This test is not yet approved or cleared by the [place] FDA. When there are no FDA-approved or cleared tests available, and other criteria are met, FDA can make tests available under an emergency access mechanism called an Emergency Use Authorization (EUA). The EUA for this test is supported by the [employer] Supervisor of Health and Human Service's (HHS's) declaration [...] consistent with SARS-CoV-2. Performed By: #### A VANDANA, PREG #### [facility] [address] [place] [address] Dr. Darleen Cho Basic Metabolic Panelon Anion gap [Moles/Vol] 10 mmol/L 9 - 17 mmol/L [place] Bun/Cre Ratio NOT REPORTED [place] Calcium [Mass/Vol] 8.3 mg/dL Low 8.6 - 10. 4 mg/dL [place] Chloride [Moles/Vol] 106 mmol/L 98 - 10 7 mmol/L [place] CO2 [Moles/Vol] 16 mmol/L Low 20 - 31 mmol/L [place] Creatinine [Mass/Vol] 0.53 mg/dL 0.5 - 0.9 mg/dL [place] GFR >60 >60 mL/min [place] GFR Non- >60 >60 mL/min [place] GFR/1.73 sq M predicted among non-blacks MDRD (S/P/Bld) [Vol rate/Area] [place] Comment on above: Average GFR for 20-2 9 years old: 116 mL/min/1.73sq m Chronic Kidney Disease: <60 mL/min/1.73sq m Kidney failure: <15 mL/min/1.73sq m eGFR calculated using average adult body mass. Additional eGFR calculator available at: http://www.Clctin/multiple_crcl_2012.htm GFR/1.73 sq M predicted among non-blacks MDRD (S/P/Bld) [Vol rate/Area] NOT REPORTED [place] Glucose [Mass/Vol] 208 mg/dL High 70 - 99 mg/dL [place] Interpretation and review of laboratory results Abnormal [place] Potassium [Moles/Vol] 3.5 mmol/L Low 3.7 - 5.3 mmol/L [place] Sodium [Moles/Vol] 132 mmol/L Low 135 - 144 mmol/L [place] Urea nitrogen [Mass/Vol] 9 mg/dL 6 - 20 mg/d L [place] Anion gap [Moles/Vol] 13 mmol/L 9 - 17 mmol/L [place] Bun/Cre Ratio NOT REPORTED [place] Calcium [Mass/Vol] 8.4 mg/dL Low 8.6 - 10. 4 mg/dL [place] Chloride [Moles/Vol] 107 mmol/L 98 - 10 7 mmol/L [place] CO2 [Moles/Vol] 16 mmol/L Low 20 - 31 mmol/L [place] Creatinine [Mass/Vol] 0.6 mg/dL 0.5 - 0.9 mg/dL [place] GFR >60 >60 mL/min [place] GFR Non- >60 >60 mL/min [place] GFR/1.73 sq M predicted among non-blacks MDRD (S/P/Bld) [Vol rate/Area] NOT REPORTED [place] GFR/1.73 sq M predicted among non-blacks MDRD (S/P/Bld) [Vol rate/Area] [place] Comment on above: Average GFR for 20-2 9 years old: 116 mL/min/1.73sq m Chronic Kidney Disease: <60 mL/min/1.73sq m Kidney failure: <15 mL/min/1.73sq m eGFR calculated using average adult body mass. Additional eGFR calculator available at: http://www.Clctin/ImageBrief_crcl_2012.htm Glucose [Mass/Vol] 189 mg/dL High 70 - 99 mg/dL [place] Interpretation and review of laboratory results Abnormal [place] Potassium [Moles/Vol] 3.6 mmol/L Low 3.7 - 5.3 mmol/L [place] Sodium [Moles/Vol] 136 mmol/L 135 - 144 mmol/L [place] Urea nitrogen [Mass/Vol] 7 mg/dL 6 - 20 mg/d L [place] Anion gap [Moles/Vol] 8 mmol/L Low 9 - 17 mmol/L [place] Bun/Cre Ratio NOT REPORTED [place] Calcium [Mass/Vol] 7.6 mg/dL Low 8.6 - 10. 4 mg/dL [place] Chloride [Moles/Vol] 110 mmol/L High 98 - 10 7 mmol/L [place] CO2 [Moles/Vol] 16 mmol/L Low 20 - 31 mmol/L [place] Creatinine [Mass/Vol] 0.41 mg/dL Low 0.5 - 0.9 mg/dL [place] GFR >60 >60 mL/min [place] GFR Non- >60 >60 mL/min [place] GFR/1.73 sq M predicted among non-blacks MDRD (S/P/Bld) [Vol rate/Area] [place] Comment on above: Average GFR for 20-2 9 years old: 116 mL/min/1.73sq m Chronic Kidney Disease: <60 mL/min/1.73sq m Kidney failure: <15 mL/min/1.73sq m eGFR calculated using average adult body mass. Additional eGFR calculator available at: http://www.Clctin/multiple_crcl_2012.htm GFR/1.73 sq M predicted among non-blacks MDRD (S/P/Bld) [Vol rate/Area] NOT REPORTED [place] Glucose [Mass/Vol] 188 mg/dL High 70 - 99 mg/dL [place] Interpretation and review of laboratory results Abnormal [place] Potassium [Moles/Vol] 3.6 mmol/L Low 3.7 - 5.3 mmol/L [place] Sodium [Moles/Vol] 134 mmol/L Low 135 - 144 mmol/L [place] Urea nitrogen [Mass/Vol] 5 mg/dL Low 6 - 20 mg/d L [place] Anion gap [Moles/Vol] 9 mmol/L 9 - 17 mmol/L [place] Bun/Cre Ratio NOT REPORTED [place] Calcium [Mass/Vol] 7.6 mg/dL Low 8.6 - 10. 4 mg/dL [place] Chloride [Moles/Vol] 118 mmol/L High 98 - 10 7 mmol/L [place] CO2 [Moles/Vol] 17 mmol/L Low 20 - 31 mmol/L [place] Creatinine [Mass/Vol] 0.46 mg/dL Low 0.5 - 0.9 mg/dL [place] GFR >60 >60 mL/min [place] GFR Non- >60 >60 mL/min [place] GFR/1.73 sq M predicted among non-blacks MDRD (S/P/Bld) [Vol rate/Area] NOT REPORTED [place] GFR/1.73 sq M predicted among non-blacks MDRD (S/P/Bld) [Vol rate/Area] [place] Comment on above: Average GFR for 20-2 9 years old: 116 mL/min/1.73sq m Chronic Kidney Disease: <60 mL/min/1.73sq m Kidney failure: <15 mL/min/1.73sq m eGFR calculated using average adult body mass. Additional eGFR calculator available at: http://www.Streamix.SpendCrowd/multiple_crcl_2011.htm Glucose [Mass/Vol] 112 mg/dL High 70 - 99 mg/dL [place] Potassium [Moles/Vol] 3.1 mmol/L Low 3.7 - 5.3 mmol/L [place] Sodium [Moles/Vol] 144 mmol/L 135 - 144 mmol/L [place] Urea nitrogen [Mass/Vol] 5 mg/dL Low 6 - 20 mg/d L [place] Anion gap [Moles/Vol] 7 mmol/L Low 9 - 17 mmol/L [place] Bun/Cre Ratio NOT REPORTED [place] Calcium [Mass/Vol] 6.8 mg/dL Low 8.6 - 10. 4 mg/dL [place] Chloride [Moles/Vol] 114 mmol/L High 98 - 10 7 mmol/L [place] CO2 [Moles/Vol] 15 mmol/L Low 20 - 31 mmol/L [place] Creatinine [Mass/Vol] 0.47 mg/dL Low 0.5 - 0.9 mg/dL [place] GFR >60 >60 mL/min [place] GFR Non- >60 >60 mL/min [place] GFR/1.73 sq M predicted among non-blacks MDRD (S/P/Bld) [Vol rate/Area] [place] Comment on above: Average GFR for 20-2 9 years old: 116 mL/min/1.73sq m Chronic Kidney Disease: <60 mL/min/1.73sq m Kidney failure: <15 mL/min/1.73sq m eGFR calculated using average adult body mass. Additional eGFR calculator available at: http://www.Streamix.SpendCrowd/multiple_crcl_2012.htm GFR/1.73 sq M predicted among non-blacks MDRD (S/P/Bld) [Vol rate/Area] NOT REPORTED [place] Glucose [Mass/Vol] 230 mg/dL High 70 - 99 mg/dL [place] Potassium [Moles/Vol] 3.3 mmol/L Low 3.7 - 5.3 mmol/L [place] Sodium [Moles/Vol] 136 mmol/L 135 - 144 mmol/L [place] Urea nitrogen [Mass/Vol] 5 mg/dL Low 6 - 20 mg/d L [place] CBC WITH AUTO DIFFERENTIALon 08-01-2020 Basophils (Bld) [#/Vol] 10*3/uL [place] Basophils/100 WBC (Bld) 0 % 0 - 2 % [place] Differential Type NOT REPORTED [place] Eosinophils (Bld) [#/Vol] 0.05 10*3/uL [place] Eosinophils/100 WBC (Bld) 1 % 1 - 4 % [place] Erythrocyte distribution width (RBC) [Ratio] 14.6 % High 11.8 - 14.4 % [place] Hematocrit (Bld) [Volume fraction] 30.7 % Low 36.3 - 47.1 % [place] Hemoglobin (Bld) [Mass/Vol] 10.0 g/dL Low 11.9 - 15.1 g/dL [place] Immature granulocytes (Bld) [#/Vol] 10*3/uL [place] Immature granulocytes (Bld) [#/Vol] 0 % 0 [place] Interpretation and review of laboratory results Abnormal [place] Lymphocytes (Bld) [#/Vol] 1.79 10*3/uL [place] Lymphocytes/100 WBC (Bld) 28 % 24 - 43 % [place] MCH (RBC) [Entitic mass] 26.0 pg 25.2 - 33.5 pg [place] MCHC (RBC) [Mass/Vol] 32.6 g/dL 28.4 - 34.8 g/dL [place] MCV (RBC) [Entitic vol] 79.9 fL Low 82.6 - 102.9 fL [place] Monocytes (Bld) [#/Vol] 0.27 10*3/uL [place] Monocytes/100 WBC (Bld) 4 % 3 - 12 % [place] Platelet mean volume (Bld) [Entitic vol] 10.0 fL 8.1 - 13.5 fL [place] Platelets (Bld) [#/Vol] NOT REPORTED [place] Platelets (Bld) [#/Vol] 130 10*3/uL Low [place] RBC (Bld) [#/Vol] 3.84 10*6/uL Low 3.95 - 5.1 1 m/uL [place] RBC morphology finding Nom (Bld) ANISOCYTOSIS PRESENT [place] Comment on above: MICROCYTOSIS PRESENT Segmented neutrophils/100 WBC (Bld) 67 % High 36 - 65 % [place] Segs Absolute 4.37 [place] WBC (Bld) [#/Vol] 0.0 10*3/uL 0.0 per 10 0 WBC [place] WBC (Bld) [#/Vol] 6.5 10*3/uL [place] WBC Morphology NOT REPORTED [place] EKG 12 Leadon 08-01-2020 Atrial Rate 109 BPM [place] P Russell 23 degrees [place] P-R Interval 148 ms [place] Q-T Interval 424 ms [place] QRS Duration 78 ms [place] QTc Calculation (Bazett) 570 ms [place] R Russell 93 degrees [place] T Russell 111 degrees [place] Ventricular Rate 109 BPM [place] Wong, Mhpn [place] [facility] [place] 11:21 AM EST Sinus tachycardia Rightward axis Septal infarct , age undetermined ST & T wave abnormality, consider lateral ischemia Prolonged QT Abnormal ECG No previous ECGs available [place] Sinus tachycardia Rightward axis Septal infarct , age undetermined ST & T wave abnormality, consider lateral ischemia Prolonged QT Abnormal ECG No previous ECGs available [place] HEMOGLOBIN A1Con 08-01-2020 Glucose [Mass/Vol] 499 mg/dL [place] Comment on above: The ADA and AACC rec ommend providing the estimated average glucose result to permit better patient understanding of their HBA1c result. HbA1c (Bld) [Mass fraction] 19.0 % High 4 - 6 % [place] Interpretation and review of laboratory results Abnormal [place] Magnesiumon 08-01-2020 Magnesium [Mass/Vol] 1.7 mg/dL 1.6 - 2 .6 mg/dL [place] Magnesium [Mass/Vol] 2.0 mg/dL 1.6 - 2 .6 mg/dL [place] Magnesium [Mass/Vol] 1.7 mg/dL 1.6 - 2 .6 mg/dL [place] Magnesium [Mass/Vol] 2.0 mg/dL 1.6 - 2 .6 mg/dL [place] Magnesium [Mass/Vol] 1.8 mg/dL 1.6 - 2 .6 mg/dL [place] Otheron 08-01-2020 Interpretation and review of laboratory results Abnormal [place] Interpretation and review of laboratory results Abnormal [place] POC Glucose Fingerstickon Glucose [Mass/Vol] 174 mg/dL High 65 - 105 mg/dL [place] Interpretation and review of laboratory results Abnormal [place] Glucose [Mass/Vol] 187 mg/dL High 65 - 105 mg/dL [place] Interpretation and review of laboratory results Abnormal [place] Glucose [Mass/Vol] 104 mg/dL 65 - 105 mg/dL [place] Glucose [Mass/Vol] 295 mg/dL High 65 - 105 mg/dL [place] Interpretation and review of laboratory results Abnormal [place] , URINEon 1 Beta HCG ( test) Ql (U) Negative NEGATIVE [place] Comment on above: Specimens with hCG [...] 2.7 mg/dL 2.6 - 4 .5 mg/dL [place] Phosphate [Mass/Vol] 2.7 mg/dL 2.6 - 4 .5 mg/dL [place] Phosphate [Mass/Vol] 2.9 mg/dL 2.6 - 4 .5 mg/dL [place] Phosphate [Mass/Vol] 2.2 mg/dL Low 2.6 - 4 .5 mg/dL [place] Phosphate [Mass/Vol] 1.6 mg/dL Low 2.6 - 4 .5 mg/dL [place] Anion Gap (Calc) POCon 07-31 Anion gap [Moles/Vol] 17 mmol/L High 7 - 16 mmol/L [place] Arterial Blood Gas, POCon Cami Test NOT REPORTED [place] aPTT Coag (Bld) [Time] NOT REPORTED [place] FIO2 30.0 [place] Mode PRVC [place] Negative Base Excess, Art 28 High [place] O2 Device/Flow/% Adult Ventilator Me [place] Oxygen saturation in Blood 88 % Low 94 - 98 % [place] POC HCO3 3.5 mmol/L Critically low 21 - 28 mmol/L [place] POC pCO2 18.0 Low [place] POC pCO2 Temp NOT REPORTED mm Hg [place] POC pH 6.893 Critically low [place] POC pH Temp NOT REPORTED [place] POC PO2 88.9 [place] POC pO2 Temp NOT REPORTED mm Hg [place] Positive Base Excess, Art NOT REPORTED [place] Sample Site Arterial Line [place] TCO2 (calc), Art <5 Low 22 - 29 mmol/L [place] Basic Metabolic Panelon Anion gap [Moles/Vol] 11 mmol/L 9 - 17 mmol/L [place] Bun/Cre Ratio NOT REPORTED [place] Calcium [Mass/Vol] 7.4 mg/dL Low 8.6 - 10. 4 mg/dL [place] Chloride [Moles/Vol] 113 mmol/L High 98 - 10 7 mmol/L [place] CO2 [Moles/Vol] 14 mmol/L Low 20 - 31 mmol/L [place] Creatinine [Mass/Vol] 0.49 mg/dL Low 0.5 - 0.9 mg/dL [place] GFR >60 >60 mL/min [place] GFR Non- >60 >60 mL/min [place] GFR/1.73 sq M predicted among non-blacks MDRD (S/P/Bld) [Vol rate/Area] NOT REPORTED [place] GFR/1.73 sq M predicted among non-blacks MDRD (S/P/Bld) [Vol rate/Area] [place] Comment on above: Average GFR for 20-2 9 years old: 116 mL/min/1.73sq m Chronic Kidney Disease: <60 mL/min/1.73sq m Kidney failure: <15 mL/min/1.73sq m eGFR calculated using average adult body mass. Additional eGFR calculator available at: http://www.Clctin/multiple_crcl_2011.htm Glucose [Mass/Vol] 262 mg/dL High 70 - 99 mg/dL [place] Potassium [Moles/Vol] 3.5 mmol/L Low 3.7 - 5.3 mmol/L [place] Sodium [Moles/Vol] 138 mmol/L 135 - 144 mmol/L [place] Urea nitrogen [Mass/Vol] 6 mg/dL 6 - 20 mg/d L [place] Anion gap [Moles/Vol] 9 mmol/L 9 - 17 mmol/L [place] Bun/Cre Ratio NOT REPORTED [place] Calcium [Mass/Vol] 7.8 mg/dL Low 8.6 - 10. 4 mg/dL [place] Chloride [Moles/Vol] 112 mmol/L High 98 - 10 7 mmol/L [place] CO2 [Moles/Vol] 15 mmol/L Low 20 - 31 mmol/L [place] Creatinine [Mass/Vol] 0.5 mg/dL 0.5 - 0.9 mg/dL [place] GFR >60 >60 mL/min [place] GFR Non- >60 >60 mL/min [place] GFR/1.73 sq M predicted among non-blacks MDRD (S/P/Bld) [Vol rate/Area] NOT REPORTED [place] GFR/1.73 sq M predicted among non-blacks MDRD (S/P/Bld) [Vol rate/Area] [place] Comment on above: Average GFR for 20-2 9 years old: 116 mL/min/1.73sq m Chronic Kidney Disease: <60 mL/min/1.73sq m Kidney failure: <15 mL/min/1.73sq m eGFR calculated using average adult body mass. Additional eGFR calculator available at: http://www.Clctin/multiple_crcl_2012.htm Glucose [Mass/Vol] 138 mg/dL High 70 - 99 mg/dL [place] Potassium [Moles/Vol] 3.5 mmol/L Low 3.7 - 5.3 mmol/L [place] Sodium [Moles/Vol] 136 mmol/L 135 - 144 mmol/L [place] Urea nitrogen [Mass/Vol] 6 mg/dL 6 - 20 mg/d L [place] Anion gap [Moles/Vol] 12 mmol/L 9 - 17 mmol/L [place] Bun/Cre Ratio NOT REPORTED [place] Calcium [Mass/Vol] 6.9 mg/dL Low 8.6 - 10. 4 mg/dL [place] Chloride [Moles/Vol] 113 mmol/L High 98 - 10 7 mmol/L [place] CO2 [Moles/Vol] 10 mmol/L Low 20 - 31 mmol/L [place] Creatinine [Mass/Vol] 0.57 mg/dL 0.5 - 0.9 mg/dL [place] GFR >60 >60 mL/min [place] GFR Non- >60 >60 mL/min [place] GFR/1.73 sq M predicted among non-blacks MDRD (S/P/Bld) [Vol rate/Area] NOT REPORTED [place] GFR/1.73 sq M predicted among non-blacks MDRD (S/P/Bld) [Vol rate/Area] [place] Comment on above: Average GFR for 20-2 9 years old: 116 mL/min/1.73sq m Chronic Kidney Disease: <60 mL/min/1.73sq m Kidney failure: <15 mL/min/1.73sq m eGFR calculated using average adult body mass. Additional eGFR calculator available at: http://www.Clctin/multiple_crcl_2012.htm Glucose [Mass/Vol] 418 mg/dL Critically high 70 - 99 mg/d [place] Potassium [Moles/Vol] 3.9 mmol/L 3.7 - 5.3 mmol/L [place] Comment on above: SPECIMEN SLIGHTLY HE MOLYZED, RESULTS MAY BE ADVERSELY AFFECTED. Sodium [Moles/Vol] 135 mmol/L 135 - 144 mmol/L [place] Urea nitrogen [Mass/Vol] 7 mg/dL 6 - 20 mg/d [place] Anion gap [Moles/Vol] 8 mmol/L Low 9 - 17 mmol/L [place] Bun/Cre Ratio NOT REPORTED [place] Calcium [Mass/Vol] 7.0 mg/dL Low 8.6 - 10. 4 mg/dL [place] Chloride [Moles/Vol] 115 mmol/L High 98 - 10 7 mmol/L [place] CO2 [Moles/Vol] 15 mmol/L Low 20 - 31 mmol/L [place] Creatinine [Mass/Vol] 0.53 mg/dL 0.5 - 0.9 mg/dL [place] GFR >60 >60 mL/min [place] GFR Non- >60 >60 mL/min [place] GFR/1.73 sq M predicted among non-blacks MDRD (S/P/Bld) [Vol rate/Area] [place] Comment on above: Average GFR for 20-2 9 years old: 116 mL/min/1.73sq m Chronic Kidney Disease: <60 mL/min/1.73sq m Kidney failure: <15 mL/min/1.73sq m eGFR calculated using average adult body mass. Additional eGFR calculator available at: http://[email or web address]/multiple_crcl_2012.htm GFR/1.73 sq M predicted among non-blacks MDRD (S/P/Bld) [Vol rate/Area] NOT REPORTED [place] Glucose [Mass/Vol] 150 mg/dL High 70 - 99 mg/dL [place] Potassium [Moles/Vol] 3.3 mmol/L Low 3.7 - 5.3 mmol/L [place] Sodium [Moles/Vol] 138 mmol/L 135 - 144 mmol/L [place] Urea nitrogen [Mass/Vol] 9 mg/dL 6 - 20 mg/d [place] Anion gap [Moles/Vol] 7 mmol/L Low 9 - 17 mmol/L [place] Bun/Cre Ratio NOT REPORTED [place] Calcium [Mass/Vol] 6.8 mg/dL Low 8.6 - 10. 4 mg/dL [place] Chloride [Moles/Vol] 114 mmol/L High 98 - 10 7 mmol/L [place] CO2 [Moles/Vol] 16 mmol/L Low 20 - 31 mmol/L [place] Creatinine [Mass/Vol] 0.51 mg/dL 0.5 - 0.9 mg/dL [place] GFR >60 >60 mL/min [place] GFR Non- >60 >60 mL/min [place] GFR/1.73 sq M predicted among non-blacks MDRD (S/P/Bld) [Vol rate/Area] [place] Comment on above: Average GFR for 20-2 9 years old: 116 mL/min/1.73sq m Chronic Kidney Disease: <60 mL/min/1.73sq m Kidney failure: <15 mL/min/1.73sq m eGFR calculated using average adult body mass. Additional eGFR calculator available at: http://www.Clctin/multiple_crcl_2012.htm GFR/1.73 sq M predicted among non-blacks MDRD (S/P/Bld) [Vol rate/Area] NOT REPORTED [place] Glucose [Mass/Vol] 190 mg/dL High 70 - 99 mg/dL [place] Potassium [Moles/Vol] 3.7 mmol/L 3.7 - 5.3 mmol/L [place] Sodium [Moles/Vol] 137 mmol/L 135 - 144 mmol/L [place] Urea nitrogen [Mass/Vol] 11 mg/dL 6 - 20 mg/d [place] Anion gap [Moles/Vol] 6 mmol/L Low 9 - 17 mmol/L [place] Bun/Cre Ratio NOT REPORTED [place] Calcium [Mass/Vol] 6.9 mg/dL Low 8.6 - 10. 4 mg/dL [place] Chloride [Moles/Vol] 115 mmol/L High 98 - 10 7 mmol/L [place] CO2 [Moles/Vol] 17 mmol/L Low 20 - 31 mmol/L [place] Creatinine [Mass/Vol] 0.56 mg/dL 0.5 - 0.9 mg/dL [place] GFR >60 >60 mL/min [place] GFR Non- >60 >60 mL/min [place] GFR/1.73 sq M predicted among non-blacks MDRD (S/P/Bld) [Vol rate/Area] NOT REPORTED [place] GFR/1.73 sq M predicted among non-blacks MDRD (S/P/Bld) [Vol rate/Area] [place] Comment on above: Average GFR for 20-2 9 years old: 116 mL/min/1.73sq m Chronic Kidney Disease: <60 mL/min/1.73sq m Kidney failure: <15 mL/min/1.73sq m eGFR calculated using average adult body mass. Additional eGFR calculator available at: http://www.Clctin/ImageBrief_crcl_2012.htm Glucose [Mass/Vol] 180 mg/dL High 70 - 99 mg/dL [place] Potassium [Moles/Vol] 3.9 mmol/L 3.7 - 5.3 mmol/L [place] Sodium [Moles/Vol] 138 mmol/L 135 - 144 mmol/L [place] Urea nitrogen [Mass/Vol] 11 mg/dL 6 - 20 mg/d [place] CALCIUM, IONIC (POC)on 07-31 POC Ionized Calcium 1.07 mmol/L Low 1.15 - 1 .33 mmol/L [place] CHLORIDE (POC)on 07-31-2020 Chloride [Moles/Vol] 116 mmol/L High 98 - 10 7 mmol/L [place] Creatinine W/GFR Point of Ca reon 07-31-2020 Creatinine [Mass/Vol] 0.78 mg/dL 0.51 - 1.19 mg/dL [place] GFR Non- >60 >60 mL/min [place] GFR/1.73 sq M predicted among non-blacks MDRD (S/P/Bld) [Vol rate/Area] mL/min/{1.73_m2} >60 mL/min [place] GFR/1.73 sq M predicted among non-blacks MDRD (S/P/Bld) [Vol rate/Area] [place] Comment on above: Average GFR for 20-2 9 years old: 116 mL/min/1.73sq m Chronic Kidney Disease: <60 mL/min/1.73sq m Kidney failure: <15 mL/min/1.73sq m eGFR calculated using average adult body mass. Additional eGFR calculator available at: http://www.Clctin/multiple_crcl_2012.htm Hemoglobin and hematocrit, b ksenia 07-31-2020 Hematocrit (Bld) [Volume fraction] 44 % 36 - 46 % [place] Hemoglobin (Bld) [Mass/Vol] 14.9 g/dL 12 - 16 g/dL [place] Lactic Acid, POCon POC Lactic Acid 0.60 mmol/L 0.56 - 1.39 mmol/L [place] Magnesiumon 07-31-2020 Magnesium [Mass/Vol] 1.9 mg/dL 1.6 - 2 .6 mg/dL [place] Magnesium [Mass/Vol] 2.2 mg/dL 1.6 - 2 .6 mg/dL [place] Magnesium [Mass/Vol] 1.4 mg/dL Low 1.6 - 2 .6 mg/dL [place] Magnesium [Mass/Vol] 1.7 mg/dL 1.6 - 2 .6 mg/dL [place] Magnesium [Mass/Vol] 1.7 mg/dL 1.6 - 2 .6 mg/dL [place] Magnesium [Mass/Vol] 1.8 mg/dL 1.6 - 2 .6 mg/dL [place] Otheron 07-31-2020 Interpretation and review of laboratory results Abnormal [place] Interpretation and review of laboratory results Abnormal [place] Interpretation and review of laboratory results Abnormal [place] Interpretation and review of laboratory results Abnormal [place] Interpretation and review of laboratory results Abnormal [place] Interpretation and review of laboratory results Abnormal [place] Interpretation and review of laboratory results Abnormal [place] POC Glucose Fingerstickon Glucose [Mass/Vol] 201 mg/dL High 65 - 105 mg/dL [place] Interpretation and review of laboratory results Abnormal [place] Glucose [Mass/Vol] 162 mg/dL High 65 - 105 mg/dL [place] Interpretation and review of laboratory results Abnormal [place] Glucose [Mass/Vol] 124 mg/dL High 65 - 105 mg/dL [place] Interpretation and review of laboratory results Abnormal [place] Glucose [Mass/Vol] 117 mg/dL High 65 - 105 mg/dL [place] Interpretation and review of laboratory results Abnormal [place] Glucose [Mass/Vol] 137 mg/dL High 65 - 105 mg/dL [place] Interpretation and review of laboratory results Abnormal [place] Glucose [Mass/Vol] 173 mg/dL High 65 - 105 mg/dL [place] Interpretation and review of laboratory results Abnormal [place] Glucose [Mass/Vol] 266 mg/dL High 65 - 105 mg/dL [place] Interpretation and review of laboratory results Abnormal [place] Glucose [Mass/Vol] 320 mg/dL High 65 - 105 mg/dL [place] Interpretation and review of laboratory results Abnormal [place] Glucose [Mass/Vol] 400 mg/dL High 65 - 105 mg/dL [place] Interpretation and review of laboratory results Abnormal [place] Glucose [Mass/Vol] 157 mg/dL High 65 - 105 mg/dL [place] Interpretation and review of laboratory results Abnormal [place] Glucose [Mass/Vol] 130 mg/dL High 65 - 105 mg/dL [place] Interpretation and review of laboratory results Abnormal [place] Glucose [Mass/Vol] 139 mg/dL High 65 - 105 mg/dL [place] Interpretation and review of laboratory results Abnormal [place] Glucose [Mass/Vol] 156 mg/dL High 65 - 105 mg/dL [place] Interpretation and review of laboratory results Abnormal [place] Glucose [Mass/Vol] 193 mg/dL High 65 - 105 mg/dL [place] Interpretation and review of laboratory results Abnormal [place] Glucose [Mass/Vol] 207 mg/dL High 65 - 105 mg/dL [place] Interpretation and review of laboratory results Abnormal [place] Glucose [Mass/Vol] 211 mg/dL High 65 - 105 mg/dL [place] Interpretation and review of laboratory results Abnormal [place] Glucose [Mass/Vol] 167 mg/dL High 65 - 105 mg/dL [place] Interpretation and review of laboratory results Abnormal [place] Glucose [Mass/Vol] 145 mg/dL High 65 - 105 mg/dL [place] Interpretation and review of laboratory results Abnormal [place] Glucose [Mass/Vol] 156 mg/dL High 65 - 105 mg/dL [place] Interpretation and review of laboratory results Abnormal [place] Glucose [Mass/Vol] 171 mg/dL High 65 - 105 mg/dL [place] Interpretation and review of laboratory results Abnormal [place] Glucose [Mass/Vol] 165 mg/dL High 65 - 105 mg/dL [place] Interpretation and review of laboratory results Abnormal [place] Glucose [Mass/Vol] 144 mg/dL High 65 - 105 mg/dL [place] Interpretation and review of laboratory results Abnormal [place] POCT Glucoseon 07-31-2020 Glucose [Mass/Vol] 372 mg/dL High 74 - 100 mg/dL [place] POTASSIUM (POC)on 07-31-2020 Potassium [Moles/Vol] 3.9 mmol/L 3.5 - 4.5 mmol/L [place] Phosphoruson 07-31-2020 Phosphate [Mass/Vol] 1.9 mg/dL Low 2.6 - 4 .5 mg/dL [place] Phosphate [Mass/Vol] 1.7 mg/dL Low 2.6 - 4 .5 mg/dL [place] Phosphate [Mass/Vol] 1.8 mg/dL Low 2.6 - 4 .5 mg/dL [place] Phosphate [Mass/Vol] 1.5 mg/dL Low 2.6 - 4 .5 mg/dL [place] Phosphate [Mass/Vol] 1.7 mg/dL Low 2.6 - 4 .5 mg/dL [place] Phosphate [Mass/Vol] 1.5 mg/dL Low 2.6 - 4 .5 mg/dL [place] SODIUM (POC)on 07-31-2020 Sodium [Moles/Vol] 136 mmol/L Low 138 - 146 mmol/L [place] Acetaminophen Levelon 2020 Acetaminophen [Mass/Vol] <5 Low 10 - 30 ug/ mL [place] Interpretation and review of laboratory results Abnormal [place] Arterial Blood Gas, POCon Cami Test NOT REPORTED [place] aPTT Coag (Bld) [Time] NOT REPORTED [place] FIO2 35.0 [place] Interpretation and review of laboratory results Abnormal [place] Mode NOT REPORTED [place] Negative Base Excess, Art 10 High [place] O2 Device/Flow/% BIPAP [place] Oxygen saturation in Blood 98 % 94 - 98 % [place] POC HCO3 12.9 mmol/L Low 21 - 28 mmol/L [place] POC pCO2 20.8 Low [place] POC pCO2 Temp NOT REPORTED mm Hg [place] POC pH 7.402 [place] POC pH Temp NOT REPORTED [place] POC PO2 98.2 [place] POC pO2 Temp NOT REPORTED mm Hg [place] Positive Base Excess, Art NOT REPORTED [place] Sample Site Arterial Line [place] TCO2 (calc), Art 14 mmol/L Low 22 - 29 mmol/L [place] Cami Test NOT REPORTED [place] aPTT Coag (Bld) [Time] 37.1 s [place] FIO2 40.0 [place] Mode Bi-Level Ventilation [place] Negative Base Excess, Art 16 High [place] O2 Device/Flow/% BIPAP [place] Oxygen saturation in Blood 96 % 94 - 98 % [place] POC HCO3 7.0 mmol/L Critically low 21 - 28 mmol/L [place] POC pCO2 14.0 Low [place] POC pCO2 Temp NOT REPORTED mm Hg [place] POC pH 7.310 Low [place] POC pH Temp NOT REPORTED [place] POC PO2 86.1 [place] POC pO2 Temp NOT REPORTED mm Hg [place] Positive Base Excess, Art NOT REPORTED [place] Sample Site Arterial Line [place] TCO2 (calc), Art 7 mmol/L Low 22 - 29 mmol/L [place] Cami Test NOT REPORTED [place] aPTT Coag (Bld) [Time] 36.3 s [place] FIO2 50.0 [place] Mode Bi-Level Ventilation [place] Negative Base Excess, Art 22 High [place] O2 Device/Flow/% BIPAP [place] Oxygen saturation in Blood 96 % 94 - 98 % [place] POC HCO3 5.2 mmol/L Critically low 21 - 28 mmol/L [place] POC pCO2 16.0 Low [place] POC pCO2 Temp NOT REPORTED mm Hg [place] POC pH 7.123 Critically low [place] POC pH Temp NOT REPORTED [place] POC PO2 109.8 High [place] POC pO2 Temp NOT REPORTED mm Hg [place] Positive Base Excess, Art NOT REPORTED [place] Sample Site Arterial Line [place] TCO2 (calc), Art 6 mmol/L Low 22 - 29 mmol/L [place] Cami Test NOT REPORTED [place] aPTT Coag (Bld) [Time] 36.1 s [place] FIO2 30.0 [place] Mode NOT REPORTED [place] Negative Base Excess, Art 24 High [place] O2 Device/Flow/% Adult Ventilator [place] Oxygen saturation in Blood 89 % Low 94 - 98 % [place] POC HCO3 4.3 mmol/L Critically low 21 - 28 mmol/L [place] POC pCO2 14.4 Low [place] POC pCO2 Temp NOT REPORTED mm Hg [place] POC pH 7.082 Critically low [place] POC pH Temp NOT REPORTED [place] POC PO2 75.9 Low [place] POC pO2 Temp NOT REPORTED mm Hg [place] Positive Base Excess, Art NOT REPORTED [place] Sample Site Arterial Line [place] TCO2 (calc), Art <5 Low 22 - 29 mmol/L [place] Basic Metabolic Panelon 07-02 Anion gap [Moles/Vol] 5 mmol/L Low 9 - 17 mmol/L [place] Bun/Cre Ratio NOT REPORTED [place] Calcium [Mass/Vol] 6.9 mg/dL Low 8.6 - 10. 4 mg/dL [place] Chloride [Moles/Vol] 113 mmol/L High 98 - 10 7 mmol/L [place] CO2 [Moles/Vol] 17 mmol/L Low 20 - 31 mmol/L [place] Creatinine [Mass/Vol] 0.51 mg/dL 0.5 - 0.9 mg/dL [place] GFR >60 >60 mL/min [place] GFR Non- >60 >60 mL/min [place] GFR/1.73 sq M predicted among non-blacks MDRD (S/P/Bld) [Vol rate/Area] NOT REPORTED [place] GFR/1.73 sq M predicted among non-blacks MDRD (S/P/Bld) [Vol rate/Area] [place] Comment on above: Average GFR for 20-2 9 years old: 116 mL/min/1.73sq m Chronic Kidney Disease: <60 mL/min/1.73sq m Kidney failure: <15 mL/min/1.73sq m eGFR calculated using average adult body mass. Additional eGFR calculator available at: http://www.globalrph.com/multiple_crcl_2011.htm Glucose [Mass/Vol] 175 mg/dL High 70 - 99 mg/dL [place] Potassium [Moles/Vol] 3.4 mmol/L Low 3.7 - 5.3 mmol/L [place] Sodium [Moles/Vol] 135 mmol/L 135 - 144 mmol/L [place] Urea nitrogen [Mass/Vol] 14 mg/dL 6 - 20 mg/d L [place] Anion gap [Moles/Vol] 6 mmol/L Low 9 - 17 mmol/L [place] Bun/Cre Ratio NOT REPORTED [place] Calcium [Mass/Vol] 7.1 mg/dL Low 8.6 - 10. 4 mg/dL [place] Chloride [Moles/Vol] 115 mmol/L High 98 - 10 7 mmol/L [place] CO2 [Moles/Vol] 18 mmol/L Low 20 - 31 mmol/L [place] Creatinine [Mass/Vol] 0.59 mg/dL 0.5 - 0.9 mg/dL [place] GFR >60 >60 mL/min [place] GFR Non- >60 >60 mL/min [place] GFR/1.73 sq M predicted among non-blacks MDRD (S/P/Bld) [Vol rate/Area] NOT REPORTED [place] GFR/1.73 sq M predicted among non-blacks MDRD (S/P/Bld) [Vol rate/Area] [place] Comment on above: Average GFR for 20-2 9 years old: 116 mL/min/1.73sq m Chronic Kidney Disease: <60 mL/min/1.73sq m Kidney failure: <15 mL/min/1.73sq m eGFR calculated using average adult body mass. Additional eGFR calculator available at: http://www.Clctin/multiple_crcl_2012.htm Glucose [Mass/Vol] 113 mg/dL High 70 - 99 mg/dL [place] Potassium [Moles/Vol] 3.2 mmol/L Low 3.7 - 5.3 mmol/L [place] Sodium [Moles/Vol] 139 mmol/L 135 - 144 mmol/L [place] Urea nitrogen [Mass/Vol] 17 mg/dL 6 - 20 mg/d L [place] Anion gap [Moles/Vol] 9 mmol/L 9 - 17 mmol/L [place] Bun/Cre Ratio NOT REPORTED [place] Calcium [Mass/Vol] 7.0 mg/dL Low 8.6 - 10. 4 mg/dL [place] Chloride [Moles/Vol] 114 mmol/L High 98 - 10 7 mmol/L [place] CO2 [Moles/Vol] 17 mmol/L Low 20 - 31 mmol/L [place] Creatinine [Mass/Vol] 0.78 mg/dL 0.5 - 0.9 mg/dL [place] GFR >60 >60 mL/min [place] GFR Non- >60 >60 mL/min [place] GFR/1.73 sq M predicted among non-blacks MDRD (S/P/Bld) [Vol rate/Area] [place] Comment on above: Average GFR for 20-2 9 years old: 116 mL/min/1.73sq m Chronic Kidney Disease: <60 mL/min/1.73sq m Kidney failure: <15 mL/min/1.73sq m eGFR calculated using average adult body mass. Additional eGFR calculator available at: http://www.Streamix.SpendCrowd/multiple_crcl_2012.htm GFR/1.73 sq M predicted among non-blacks MDRD (S/P/Bld) [Vol rate/Area] NOT REPORTED [place] Glucose [Mass/Vol] 132 mg/dL High 70 - 99 mg/dL [place] Potassium [Moles/Vol] 3.1 mmol/L Low 3.7 - 5.3 mmol/L [place] Sodium [Moles/Vol] 140 mmol/L 135 - 144 mmol/L [place] Urea nitrogen [Mass/Vol] 20 mg/dL 6 - 20 mg/d L [place] Anion gap [Moles/Vol] 9 mmol/L 9 - 17 mmol/L [place] Bun/Cre Ratio NOT REPORTED [place] Calcium [Mass/Vol] 7.1 mg/dL Low 8.6 - 10. 4 mg/dL [place] Chloride [Moles/Vol] 113 mmol/L High 98 - 10 7 mmol/L [place] CO2 [Moles/Vol] 17 mmol/L Low 20 - 31 mmol/L [place] Creatinine [Mass/Vol] 0.81 mg/dL 0.5 - 0.9 mg/dL [place] GFR >60 >60 mL/min [place] GFR Non- >60 >60 mL/min [place] GFR/1.73 sq M predicted among non-blacks MDRD (S/P/Bld) [Vol rate/Area] [place] Comment on above: Average GFR for 20-2 9 years old: 116 mL/min/1.73sq m Chronic Kidney Disease: <60 mL/min/1.73sq m Kidney failure: <15 mL/min/1.73sq m eGFR calculated using average adult body mass. Additional eGFR calculator available at: http://www.Clctin/multiple_crcl_2012.htm GFR/1.73 sq M predicted among non-blacks MDRD (S/P/Bld) [Vol rate/Area] NOT REPORTED [place] Glucose [Mass/Vol] 238 mg/dL High 70 - 99 mg/dL [place] Potassium [Moles/Vol] 2.4 mmol/L Critically low 3.7 - 5.3 mmol/L [place] Sodium [Moles/Vol] 139 mmol/L 135 - 144 mmol/L [place] Urea nitrogen [Mass/Vol] 23 mg/dL High 6 - 20 mg/d L [place] Anion gap [Moles/Vol] 23 mmol/L High 9 - 17 mmol/L [place] Bun/Cre Ratio NOT REPORTED [place] Calcium [Mass/Vol] 7.2 mg/dL Low 8.6 - 10. 4 mg/dL [place] Chloride [Moles/Vol] 111 mmol/L High 98 - 10 7 mmol/L [place] CO2 [Moles/Vol] 8 mmol/L Critically low 20 - 31 mmol/L [place] Creatinine [Mass/Vol] 1.08 mg/dL High 0.5 - 0.9 mg/dL [place] GFR >60 >60 mL/min [place] GFR Non- >60 >60 mL/min [place] GFR/1.73 sq M predicted among non-blacks MDRD (S/P/Bld) [Vol rate/Area] [place] Comment on above: Average GFR for 20-2 9 years old: 116 mL/min/1.73sq m Chronic Kidney Disease: <60 mL/min/1.73sq m Kidney failure: <15 mL/min/1.73sq m eGFR calculated using average adult body mass. Additional eGFR calculator available at: http://www.Clctin/multiple_crcl_2012.htm GFR/1.73 sq M predicted among non-blacks MDRD (S/P/Bld) [Vol rate/Area] NOT REPORTED [place] Glucose [Mass/Vol] 322 mg/dL High 70 - 99 mg/dL [place] Potassium [Moles/Vol] 3.8 mmol/L 3.7 - 5.3 mmol/L [place] Sodium [Moles/Vol] 142 mmol/L 135 - 144 mmol/L [place] Urea nitrogen [Mass/Vol] 28 mg/dL High 6 - 20 mg/d L [place] Anion gap [Moles/Vol] Unable to calculate anion gap due to CO2 less than 6. 9 - 17 mmol/L [place] Bun/Cre Ratio NOT REPORTED [place] Calcium [Mass/Vol] 6.9 mg/dL Low 8.6 - 10. 4 mg/dL [place] Chloride [Moles/Vol] 109 mmol/L High 98 - 10 7 mmol/L [place] CO2 [Moles/Vol] mmol/L Critically low 20 - 31 mmol/L [place] Creatinine [Mass/Vol] 0.89 mg/dL 0.5 - 0.9 mg/dL [place] GFR >60 >60 mL/min [place] GFR Non- >60 >60 mL/min [place] GFR/1.73 sq M predicted among non-blacks MDRD (S/P/Bld) [Vol rate/Area] NOT REPORTED [place] GFR/1.73 sq M predicted among non-blacks MDRD (S/P/Bld) [Vol rate/Area] [place] Comment on above: Average GFR for 20-2 9 years old: 116 mL/min/1.73sq m Chronic Kidney Disease: <60 mL/min/1.73sq m Kidney failure: <15 mL/min/1.73sq m eGFR calculated using average adult body mass. Additional eGFR calculator available at: http://www.Clctin/multiple_crcl_2011.htm Glucose [Mass/Vol] 275 mg/dL High 70 - 99 mg/dL [place] Interpretation and review of laboratory results Abnormal [place] Potassium [Moles/Vol] 3.4 mmol/L Low 3.7 - 5.3 mmol/L [place] Sodium [Moles/Vol] 139 mmol/L 135 - 144 mmol/L [place] Urea nitrogen [Mass/Vol] 29 mg/dL High 6 - 20 mg/d L [place] CBC WITH AUTO DIFFERENTIALon 07-30-2020 Basophils (Bld) [#/Vol] 0.00 10*3/uL [place] Basophils/100 WBC (Bld) 0 % 0 - 2 % [place] Differential Type NOT REPORTED [place] Eosinophils (Bld) [#/Vol] 0.00 10*3/uL [place] Eosinophils/100 WBC (Bld) 0 % Low 1 - 4 % [place] Erythrocyte distribution width (RBC) [Ratio] 13.2 % 11.8 - 14.4 % [place] Hematocrit (Bld) [Volume fraction] 38.1 % 36.3 - 47.1 % [place] Hemoglobin (Bld) [Mass/Vol] 12.9 g/dL 11.9 - 15.1 g/dL [place] Immature granulocytes (Bld) [#/Vol] 2 % High 0 [place] Immature granulocytes (Bld) [#/Vol] 0.28 10*3/uL [place] Interpretation and review of laboratory results Abnormal [place] Lymphocytes (Bld) [#/Vol] 0.70 10*3/uL [place] Lymphocytes/100 WBC (Bld) 5 % Low 24 - 43 % [place] MCH (RBC) [Entitic mass] 26.2 pg 25.2 - 33.5 pg [place] MCHC (RBC) [Mass/Vol] 33.9 g/dL 28.4 - 34.8 g/dL [place] MCV (RBC) [Entitic vol] 77.3 fL Low 82.6 - 102.9 fL [place] Monocytes (Bld) [#/Vol] 0.56 10*3/uL [place] Monocytes/100 WBC (Bld) 4 % 3 - 12 % [place] Morphology Calvin (Bld) [Interp] MICROCYTOSIS PRESENT [place] Morphology [place] (Bld) [Interp] ANISOCYTOSIS PRESENT [place] Platelet mean volume (Bld) [Entitic vol] 9.8 fL 8.1 - 13.5 fL [place] Platelets (Bld) [#/Vol] 228 10*3/uL [place] Platelets (Bld) [#/Vol] NOT REPORTED [place] RBC (Bld) [#/Vol] 4.93 10*6/uL 3.95 - 5.1 1 m/uL [place] RBC morphology finding Nom (Bld) NOT REPORTED [place] Segmented neutrophils/100 WBC (Bld) 89 % High 36 - 65 % [place] Segs Absolute 12.36 High [place] WBC (Bld) [#/Vol] 0.0 10*3/uL 0.0 per 10 0 WBC [place] WBC (Bld) [#/Vol] 13.9 10*3/uL [place] WBC Morphology NOT REPORTED [place] Ethanolon 07-30-2020 Ethanol [Mass/Vol] mg/dL <10 mg/dL [place] Ethanol percent <0.010 <0.010 % [place] Hepatic Function Panelon Albumin [Mass/Vol] 3 g/dL Low 3.5 - 5.2 g/dL [place] Albumin/Globulin [Mass ratio] 1.3 {ratio} [place] ALP [Catalytic activity/Vol] 103 U/L 35 - 104 U/L [place] ALT [Catalytic activity/Vol] 16 U/L 5 - 33 U/L [place] AST [Catalytic activity/Vol] 39 U/L High <32 [place] Bilirubin Ql (U) <0.10 Low 0.3 - 1.2 mg/dL [place] Bilirubin, Indirect CANNOT BE CALCULATED 0 - 1 mg/dL [place] Bilirubin.direct [Mass/Vol] mg/dL <0.31 mg /dL [place] Globulin (S) [Mass/Vol] NOT REPORTED 1.5 - 3.8 g/dL [place] Interpretation and review of laboratory results Abnormal [place] Protein [Mass/Vol] 5.3 g/dL Low 6.4 - 8.3 g/dL [place] Lactic Acid, POCon POC Lactic Acid 0.87 mmol/L 0.56 - 1.39 mmol/L [place] POC Lactic Acid 0.80 mmol/L 0.56 - 1.39 mmol/L [place] POC Lactic Acid 0.79 mmol/L 0.56 - 1.39 mmol/L [place] Lipaseon 07-30-2020 Lipase [Catalytic activity/Vol] 24 U/L 13 - 60 U/L [place] MRSA by PCRon 07-30-2020 Direct Exam POSITIVE: MRSA DNA detected by nucleic acid amplification. Results should be used as an adjunct to nosocomial control efforts to identify patients needing enhanced precautions. The test is not intended to identify patients with staphylococcal infections. Results should not be used to guide or monitor treatment for MRSA infections. Abnormal [place] Interpretation and review of laboratory results Abnormal [place] Special Requests NOT REPORTED [place] Specimen Description .NASAL SWAB [place] Magnesiumon 07-30-2020 Magnesium [Mass/Vol] 1.6 mg/dL 1.6 - 2 .6 mg/dL [place] Magnesium [Mass/Vol] 1.8 mg/dL 1.6 - 2 .6 mg/dL [place] Magnesium [Mass/Vol] 2.0 mg/dL 1.6 - 2 .6 mg/dL [place] Magnesium [Mass/Vol] 2.0 mg/dL 1.6 - 2 .6 mg/dL [place] Magnesium [Mass/Vol] 1.6 mg/dL 1.6 - 2 .6 mg/dL [place] Magnesium [Mass/Vol] 1.6 mg/dL 1.6 - 2 .6 mg/dL [place] Microscopic Urinalysison Amorphous, UA 1+ Abnormal None [place] Bacteria, UA NOT REPORTED None [place] Casts UA HYALINE [place] Casts UA 0 TO 2 [place] Crystals, UA NOT REPORTED None /HPF [place] Epithelial Cells UA 5 TO 10 [place] Interpretation and review of laboratory results Abnormal [place] Mucus, UA NOT REPORTED None [place] Other Observations UA NOT REPORTED NOT REQ. M [place] RBC (U) [#/Vol] 0 TO 2 [place] Renal Epithelial, UA NOT REPORTED 0 /HPF [place] Trichomonas, UA NOT REPORTED None [place] WBC, UA 2 TO 5 [place] Yeast, UA NOT REPORTED None [place] Otheron 07-30-2020 Interpretation and review of laboratory results Abnormal [place] Interpretation and review of laboratory results Ab[place] Interpretation and review of laboratory results Abnormal [place] Interpretation and review of laboratory results Abnormal [place] Interpretation and review of laboratory results Abnormal [place] Interpretation and review of laboratory results Abnormal [place] Interpretation and review of laboratory results Abnormal [place] Interpretation and review of laboratory results Abnormal [place] POC Glucose Fingerstickon Glucose [Mass/Vol] 148 mg/dL High 65 - 105 mg/dL [place] Interpretation and review of laboratory results Abnormal [place] Glucose [Mass/Vol] 170 mg/dL High 65 - 105 mg/dL [place] Interpretation and review of laboratory results Abnormal [place] Glucose [Mass/Vol] 156 mg/dL High 65 - 105 mg/dL [place] Interpretation and review of laboratory results Abnormal [place] Glucose [Mass/Vol] 140 mg/dL High 65 - 105 mg/dL [place] Interpretation and review of laboratory results Abnormal [place] Glucose [Mass/Vol] 109 mg/dL High 65 - 105 mg/dL [place] Interpretation and review of laboratory results Abnormal [place] Glucose [Mass/Vol] 112 mg/dL High 65 - 105 mg/dL [place] Interpretation and review of laboratory results Abnormal [place] Glucose [Mass/Vol] 111 mg/dL High 65 - 105 mg/dL [place] Interpretation and review of laboratory results Abnormal [place] Glucose [Mass/Vol] 130 mg/dL High 65 - 105 mg/dL [place] Interpretation and review of laboratory results Abnormal [place] Glucose [Mass/Vol] 143 mg/dL High 65 - 105 mg/dL [place] Interpretation and review of laboratory results Abnormal [place] Glucose [Mass/Vol] 126 mg/dL High 65 - 105 mg/dL [place] Interpretation and review of laboratory results Abnormal [place] Glucose [Mass/Vol] 126 mg/dL High 65 - 105 mg/dL [place] Interpretation and review of laboratory results Abnormal [place] Glucose [Mass/Vol] 174 mg/dL High 65 - 105 mg/dL [place] Interpretation and review of laboratory results Abnormal [place] Glucose [Mass/Vol] 214 mg/dL High 65 - 105 mg/dL [place] Interpretation and review of laboratory results Abnormal [place] Glucose [Mass/Vol] 214 mg/dL High 65 - 105 mg/dL [place] Interpretation and review of laboratory results Abnormal [place] Glucose [Mass/Vol] 252 mg/dL High 65 - 105 mg/dL [place] Interpretation and review of laboratory results Abnormal [place] Glucose [Mass/Vol] 281 mg/dL High 65 - 105 mg/dL [place] Interpretation and review of laboratory results Abnormal [place] Glucose [Mass/Vol] 291 mg/dL High 65 - 105 mg/dL [place] Interpretation and review of laboratory results Abnormal [place] Glucose [Mass/Vol] 283 mg/dL High 65 - 105 mg/dL [place] Interpretation and review of laboratory results Abnormal [place] Glucose [Mass/Vol] 275 mg/dL High 65 - 105 mg/dL [place] Interpretation and review of laboratory results Abnormal [place] Glucose [Mass/Vol] 264 mg/dL High 65 - 105 mg/dL [place] Interpretation and review of laboratory results Abnormal [place] Glucose [Mass/Vol] 270 mg/dL High 65 - 105 mg/dL [place] Interpretation and review of laboratory results Abnormal [place] Glucose [Mass/Vol] 244 mg/dL High 65 - 105 mg/dL [place] Interpretation and review of laboratory results Abnormal [place] Glucose [Mass/Vol] 226 mg/dL High 65 - 105 mg/dL [place] Interpretation and review of laboratory results Abnormal [place] Glucose [Mass/Vol] 272 mg/dL High 65 - 105 mg/dL [place] Interpretation and review of laboratory results Abnormal [place] Glucose [Mass/Vol] 290 mg/dL High 65 - 105 mg/dL [place] Interpretation and review of laboratory results Abnormal [place] POCT Glucoseon 07-30-2020 Glucose [Mass/Vol] 296 mg/dL High 74 - 100 mg/dL [place] Glucose [Mass/Vol] 284 mg/dL High 74 - 100 mg/dL [place] Glucose [Mass/Vol] 325 mg/dL High 74 - 100 mg/dL [place] POTASSIUMon 07-30-2020 Potassium [Moles/Vol] 4.4 mmol/L 3.7 - 5.3 mmol/L [place] Comment on above: SPECIMEN SLIGHTLY HE MOLYZED, RESULTS MAY BE ADVERSELY AFFECTED. Potassium [Moles/Vol] 3.8 mmol/L 3.7 - 5.3 mmol/L [place] Phosphoruson 07-30-2020 Phosphate [Mass/Vol] 1.7 mg/dL Low 2.6 - 4 .5 mg/dL [place] Phosphate [Mass/Vol] 1.7 mg/dL Low 2.6 - 4 .5 mg/dL [place] Phosphate [Mass/Vol] 1.7 mg/dL Low 2.6 - 4 .5 mg/dL [place] Phosphate [Mass/Vol] 0.6 mg/dL Critically low 2.6 - 4.5 mg/dL [place] Phosphate [Mass/Vol] 0.5 mg/dL Critically low 2.6 - 4.5 mg/dL [place] Interpretation and review of laboratory results Abnormal [place] Phosphate [Mass/Vol] 1.1 mg/dL Low 2.6 - 4 .5 mg/dL [place] SPECIMEN REJECTIONon 021 Ordered Test [id number] [place] Reason for Rejection Unable to perform testing: Specimen quantity not sufficient. [place] Specimen source Nom (Unsp spec) .BLOOD [place] - NOT REPORTED [place] Salicylateon 07-30-2020 Interpretation and review of laboratory results Abnormal [place] Salicylate Lvl 1 mg/dL Low 3 - 10 mg/dL [place] TOXIC TRICYCLIC SC,Bon 07-30 Toxic Tricyclic Sc,Blood Negative NEGATIVE [place] TSH with Reflexon 07-30-2020 TSH Qn 0.35 m[IU]/L [place] Urinalysis Reflex to Culture on 07-30-2020 Bilirubin Urine Negative NEGATIVE [place] Color, UA YELLOW YELLOW [place] Glucose, Ur 3+ Abnormal NEGATIVE [place] Interpretation and review of laboratory results Abnormal [place] Ketones Ql (U) LARGE Abnormal NEGATIVE [place] Leukocyte esterase Test strip Ql (U) TRACE Abnormal NEGATIVE [place] Nitrite, Urine Negative NEGATIVE [place] pH, UA 5.0 [place] Protein (U) [Mass/Vol] 2+ Abnormal NEGATIVE [place] Specific [place], UA 1.019 [place] Turbidity UA CLOUDY Abnormal CLE[place] Urinalysis Comments NOT REPORTED [place] Urine Hgb MODERATE Abnormal NEGATIVE [place] Urobilinogen, Urine Normal Normal [place] Urine Drug Screenon 07-30-19 21 Amphetamine Screen, Ur Negative NEGATIVE [place] Comment on above: (Positive cutoff 1000 ng/mL) Barbiturate Screen, Ur Negative NEGATIVE [place] Comment on above: (Positive cutoff 200 ng/mL) Benzodiazepine Screen, Urine Negative NEGATIVE [place] Comment on above: (Positive cutoff 200 ng/mL) Buprenorphine Urine NOT REPORTED NEGATIVE [place] Cannabinoid Scrn, Ur Negative NEGATIVE [place] Comment on above: (Positive cutoff 50 ng/mL) Cocaine Metabolite, Urine Negative NEGATIVE [place] Comment on above: (Positive cutoff 300 ng/mL) MDMA, Urine NOT REPORTED [place]GAT[place] Methadone Screen, Urine Negative NEGATIVE [place] Comment on above: (Positive cutoff 300 ng/mL) Methamphetamine, Urine NOT REPORTED [place]GAT[place] Opiates, Urine Negative NEGATIVE [place] Comment on above: (Positive cutoff 300 ng/mL) Oxycodone Screen, Ur Negative NEGATIVE [place] Comment on above: (Positive cutoff 100 ng/mL) Phencyclidine, Urine Negative NEGATIVE [place] Comment on above: (Positive cutoff 25 ng/mL) Propoxyphene, Urine NOT REPORTED [place]GAT[place] Test Information Assay provides medical screening only. The absence of expected drug(s) and/or metabolite(s) may indicate diluted or adulterated urine, limitations of testing or timing of collection. [place] Comment on above: Testing for legal pu rposes should be confirmed by another method. To request confirmation of test result, please call the lab within 7 days of sample submission. Tricyclic Antidepressants, Urine NOT REPORTED [place]GAT[place] XR CHEST PORTABLEon 07-30-19 21 Wong, Mhpn Incoming Radiant Results From [facility]ev[facility]Mie[facility] - 07/30/2020 2:54 AM EST EXAMINATION: ONE [...] with the tip in the distal SVC. [facility]: ONE XRAY VIEW OF THE CHEST [...] line with tip in the distal SVC. [facility] Scattered bilateral infiltrates most pronounced in the right lower lobe consistent with pneumonia. Right internal jugular line with the tip in the distal SVC. [facility] ACETAMINOPHENon 07-29-2020 Acetaminophen [Mass/Vol] <10.0 Critically low 10.1-30 .0 [facility] Comment on above: Performed By: #### D RUGRPD #### [facility] [address] [place], [place] [address] Alfie Mederos ACETONE SERUMon 07-29-2020 ACETONE SMALL Abnormal NEGATIVE [facility] Comment on above: Performed By: #### A CETON #### [facility] [address] [place], [place] [address] Alfie Mederos BLOOD GAS, VENOUSon 07-29-19 21 Cami Test NOT REPORTED [facility] aPTT Coag (Bld) [Time] 37.0 s Me [facility] Carboxyhemoglobin 0.6 % 0 - 5 % [facility] Comment on above: Reference Range: Non-Smokers 0-2% Average Smoker 2-4% Heavy Smoker <10% FIO2 ROOM AIR [facility] HCO3, Venous 4.2 mmol/L Low 24 - 30 mmol/L [place] Interpretation and review of laboratory results Abnormal [facility] Methemoglobin NOT REPORTED 0 - 1.5 % [place] Mode NOT REPORTED [facility] [place] Negative Base Excess, Denis NOT REPORTED 0 - 2 mm ol/L [place] NOTIFICATION NOT REPORTED [place] NOTIFICATION TIME NOT REPORTED [place] O2 Device/Flow/% NOT REPORTED [place] Oxygen saturation in Blood 69.6 % 60 - 85 % [place] Oxyhemoglobin NOT REPORTED 95 - 98 % [place] pCO2, Denis 24.6 Low [place] pCO2, Denis, Temp Adj NOT REPORTED [place] Peep/Cpap NOT REPORTED [place] pH, Denis 6.864 Critically low [place] pH, Denis, Temp Adj NOT REPORTED [place] pO2, Denis 39.3 [place] pO2, Denis, Temp Adj NOT REPORTED [place] Positive Base Excess, Denis NOT REPORTED 0 - 2 mm ol/L [place] PSV NOT REPORTED [place] Pt. Position NOT REPORTED [place] Sample Site NOT REPORTED [place] Set Rate NOT REPORTED [place] Text for Respiratory NOT REPORTED [place] Total Hb NOT REPORTED 12 - 16 g/dl [place] Total Rate NOT REPORTED [place] VT NOT REPORTED [place] [facility] 02 MODE ROOM AIR Normal [facility] Comment on above: Performed By: #### A BG #### [facility] [address] [place] [id number] Alfie Mederos ALLENS TEST Positive Normal [facility] Comment on above: Performed By: #### A BG #### [facility] [address] [place] [id number] Alfie Mederos Base excess Calc (Bld) [Moles/Vol] -26.4 mmol/L Critically low -2.0-2.0 [facility] Comment on above: Performed By: #### A BG #### [facility] [address] [place] [id number] Alfie Mederos BIPAP PRESSURE Normal [facility] Comment on above: Performed By: #### A BG #### [facility] [address] [place] [address] Alfie Rosa M CO2 [Moles/Vol] 3.7 mmol/L Critically low 23.0-28.0 [facility] Comment on above: Performed By: #### A BG #### [facility] [address] [place] [address] Alfie Rosa M CPAP Normal [facility] Comment on above: Performed By: #### A BG #### [facility] [address] [place] [address] Alfie Rosa M FIO2 Normal [facility] Comment on above: Performed By: #### A BG #### [facility] [address] [place] [address] Alfie Rosa M HCO3 (Bld) [Moles/Vol] 3.3 mmol/L Critically low 22.0-26.0 [facility] Comment on above: Performed By: #### A BG #### [facility] [address] [place] [address] Alfie Rosa M LPM Normal [facility] Comment on above: Performed By: #### A BG #### [facility] [address] [place] [address] Alfie Rosa M MINUTE VOLUME Normal [facility] Comment on above: Performed By: #### A BG #### [facility] [address] [place] [address] Alfie Rosa M Oxygen (Bld) [Partial pressure] 84.7 mm[Hg] Normal 80.0-100.0 [facility] Comment on above: Performed By: #### A BG #### [facility] [address] [place] [address] Alfie Rosa M Oxygen saturation in Blood 94.1 % Critically low 95.0- 100.0 [facility] Comment on above: Performed By: #### A BG #### [facility] [address] [place] [address] Alfie Rosa M PCO2 13.9 mmHg Critically low 35.0-45.0 [facility] Comment on above: Performed By: #### A BG #### [facility] [address] [place] [address] Alfie Rosa M PEEP Normal [facility] Comment on above: Performed By: #### A BG #### [facility] [address] [place] [address] Alfie Mederos pH (Bld) 6.991 [pH] Critically low 7.350-7.450 [facility] Comment on above: Performed By: #### A BG #### [facility] [address] [place] [address] Alfie Rosa M PIP Normal [facility] Comment on above: Performed By: #### A BG #### [facility] [address] [place] [address] Alfie Rosa M PS [facility] Comment on above: Performed By: #### A BG #### [facility] [address] [place] [address] Alfiejamie Mederos PUNCTURE SITE RR [facility] Comment on above: Performed By: #### A BG #### [facility] [address] [place] [address] Alfie Rosa M RATE Normal [facility] Comment on above: Performed By: #### A BG #### [facility] [address] [place] [address] Alfiejamie Arizmendien VENT MODE [facility] Comment on above: Performed By: #### A BG #### [facility] [address] [place] [address] Alfie Rosa M VT [facility] Comment on above: Performed By: #### A BG #### [facility] [address] [place] [phone] Alfiejamie Mederos Basic Metabolic Panelon 07-02 Anion gap [Moles/Vol] Unable to calculate anion gap due to CO2 less than 6. 9 - 17 mmol/L [facility] [place] Bun/Cre Ratio NOT REPORTED [place] Calcium [Mass/Vol] 7.0 mg/dL Low 8.6 - 10. 4 mg/dL [facility] [place] Chloride [Moles/Vol] 109 mmol/L High 98 - 10 7 mmol/L [place] CO2 [Moles/Vol] mmol/L Critically low 20 - 31 mmol/L [place] Creatinine [Mass/Vol] 0.98 mg/dL High 0.5 - 0.9 mg/dL [place] GFR >60 >60 mL/min [place] GFR Non- >60 >60 mL/min [place] GFR/1.73 sq M predicted among non-blacks MDRD (S/P/Bld) [Vol rate/Area] NOT REPORTED [place] GFR/1.73 sq M predicted among non-blacks MDRD (S/P/Bld) [Vol rate/Area] [place] Comment on above: Average GFR for 20-2 9 years old: 116 mL/min/1.73sq m Chronic Kidney Disease: <60 mL/min/1.73sq m Kidney failure: <15 mL/min/1.73sq m eGFR calculated using average adult body mass. Additional eGFR calculator available at: http://www.Clctin/multiple_crcl_2011.htm Glucose [Mass/Vol] 360 mg/dL High 70 - 99 mg/dL [place] Interpretation and review of laboratory results Abnormal [place] Potassium [Moles/Vol] 4.1 mmol/L 3.7 - 5.3 mmol/L [place] Sodium [Moles/Vol] 136 mmol/L 135 - 144 mmol/L [place] Urea nitrogen [Mass/Vol] 30 mg/dL High 6 - 20 mg/d L [place] Anion gap [Moles/Vol] Unable to calculate anion gap due to CO2 less than 6. 9 - 17 mmol/L [place] Bun/Cre Ratio NOT REPORTED [place] Calcium [Mass/Vol] 6.9 mg/dL Low 8.6 - 10. 4 mg/dL [place] Chloride [Moles/Vol] 110 mmol/L High 98 - 10 7 mmol/L [place] CO2 [Moles/Vol] mmol/L Critically low 20 - 31 mmol/L [place] Creatinine [Mass/Vol] 0.95 mg/dL High 0.5 - 0.9 mg/dL [place] GFR >60 >60 mL/min [place] GFR Non- >60 >60 mL/min [place] GFR/1.73 sq M predicted among non-blacks MDRD (S/P/Bld) [Vol rate/Area] [place] Comment on above: Average GFR for 20-2 9 years old: 116 mL/min/1.73sq m Chronic Kidney Disease: <60 mL/min/1.73sq m Kidney failure: <15 mL/min/1.73sq m eGFR calculated using average adult body mass. Additional eGFR calculator available at: http://www.Clctin/ImageBrief_crcl_2011.htm GFR/1.73 sq M predicted among non-blacks MDRD (S/P/Bld) [Vol rate/Area] NOT REPORTED [place] Glucose [Mass/Vol] 368 mg/dL High 70 - 99 mg/dL [place] Interpretation and review of laboratory results Abnormal [place] Potassium [Moles/Vol] 4.0 mmol/L 3.7 - 5.3 mmol/L [place] Sodium [Moles/Vol] 137 mmol/L 135 - 144 mmol/L [place] Urea nitrogen [Mass/Vol] 30 mg/dL High 6 - 20 mg/d L [place] CBC W MANUAL DIFFon 07-29-19 ATYPICAL LYMPH # 0.33 103/ul Normal [facility] Comment on above: Performed By: #### SAAD TALBOT #### [facility] [address] [place] [address] Alfie Rosa M ATYPICAL LYMPH % 1 % Normal [facility] Comment on above: Performed By: #### SAAD TALBOT #### [facility] [address] [place] [address] Alfie Rosa M BAND # 3.0 103/ul Critically high 0.0-0.3 [facility] Comment on above: Performed By: #### SAAD TALBOT #### [facility] [address] [address] Alfie Rosa M BAND % 9 % Critically high 0-5 [facility] Comment on above: Performed By: #### Colt MERRILL PERSMR #### [facility] [address] [address] Alfie Rosa M BASOM # 0.00 103/ul Normal 0.00-0.10 [facility] Comment on above: Performed By: #### Colt MERRILL PERSMR #### [facility] [address] [place] [address] Alfie Rosa M BASOM % 0.0 % Critically low 0.2-2.0 [facility] Comment on above: Performed By: #### Colt MERRILL PERSMR #### [facility] [address] [place] [address] Alfie Rosa M BLAST # Normal [facility] Comment on above: Performed By: #### Colt MERRILL PERSMR #### [facility] [address] [place] [address] Alfie Rosa M BLAST % Normal [facility] Comment on above: Performed By: #### Colt MERRILL PERSMR #### [facility] [address] [place] [address] Alfie Rosa M CORRECTED WBC Normal 4.0-11.0 [facility] Comment on above: Performed By: #### Colt MERRILL PERSMR #### [facility] [address] [place] [address] Alfie Rosa M Eosinophils (Bld) [#/Vol] 0.00 103/ul Normal 0.00-0.70 [facility] Comment on above: Performed By: #### Colt MERRILL PERSMR #### [facility] [address] [place], [place] [phone] Alfie Rosa M Eosinophils/100 WBC (Bld) 0.0 % Critically low 0.9-7. 0 [facility] Comment on above: Performed By: #### Colt MERRILL PERSMR #### [facility] [address] [place] [address] Alfie Rosa M Erythrocyte distribution width (RBC) [Ratio] 13.2 % Normal 11.0-15.0 [facility] Comment on above: Performed By: #### Colt MERRILL, PERSMR #### [facility] [address] [place] [address] Alfiejamie Mederos Hematocrit (Bld) [Volume fraction] 48.3 % Critically high 36.0-48.0 [facility] Comment on above: Performed By: #### Colt MERRILL, PERSMR #### [facility] [address] [place] [address] Alfie Rosa M Hemoglobin (Bld) [Mass/Vol] 15.2 g/dl Normal 12.0-16. 0 [facility] Comment on above: Performed By: #### Colt MERRILL, PERSMR #### [facility] [address] [place] [address] Alfie Rosa M LYMPHM # 3.00 103/ul Normal 1.20-3.80 [facility] Comment on above: Performed By: #### Colt MERRILL, PERSMR #### [facility] [address] [place] [address] Alfie Rosa M LYMPHM% 9.0 % Critically low 20.5-60.0 [facility] Comment on above: Performed By: #### Colt MERRILL PERSMR #### [facility] [address] [place] [address] Alfie Mederos MCH (RBC) [Entitic mass] 26.8 pg Normal 26.7-34.0 [facility] Comment on above: Performed By: #### Colt MERRILL, PERSMR #### [facility] [address] [place] [address] Alfie Mederos MCHC (RBC) [Mass/Vol] 31.5 g/dl Normal 29.9-35.2 [facility] Comment on above: Performed By: #### Colt MERRILL, PERSMR #### [facility] [address] [place] [address] Alfie Mederos MCV (RBC) [Entitic vol] 85.0 fL Normal 81.0-99.0 [facility] Comment on above: Performed By: #### Colt MERRILL, PERSMR #### [facility] [address] [place] [address] Alfie Rosa M METAMYELOCYTE # 1.0 103/ul Normal [facility] Comment on above: Performed By: #### Colt MERRILL PERSMR #### [facility] [address] [place] [address] Alfie Rosa M METAMYELOCYTE % 3 % Normal [facility] Comment on above: Performed By: #### Colt MERRILL PERSMR #### [facility] [address] [place] [address] Alfie Rosa M MONOM# 1.33 103/ul Critically high 0.30-0.80 [facility] Comment on above: Performed By: #### Colt MERRILL PERSMR #### [facility] [address] [place] [address] Alfie Rosa M MONOM% 4.0 % Normal 1.7-12.0 [facility] Comment on above: Performed By: #### Colt MERRILL PERSMR #### [facility] [address] [place] [address] Alfie Rosa M MYELOCYTE # 0.3 103/ul Normal [facility] Comment on above: Performed By: #### Colt MERRILL PERSMR #### [facility] [address] [place] [address] Alfie Rosa M MYELOCYTE % 1 % Normal [facility] Comment on above: Performed By: #### Colt MERRILL PERS #### [facility] [address] [place] [address] Alfie Rosa M NRBC Normal [facility] Comment on above: Performed By: #### Colt MERRILL PERSMR #### [facility] [address] [place] [address] Alfie Rosa M PATH REVIEW INDICATED Normal [facility] Comment on above: Performed By: #### Colt MERRILL PERSMR #### [facility] [address] [place] [address] Alfie Rosa M Platelet mean volume (Bld) [Entitic vol] 10.1 fL Normal 9.5-13.5 [facility] Comment on above: Performed By: #### C BCMAN, PERSMR #### [facility] [address] [place], [place] [address] Alfie Rosa M Platelets (Bld) [#/Vol] 384 103/ul Normal 150-450 [facility] Comment on above: Performed By: #### Colt MERRILL, PERSMR #### [facility] [address] [place] [address] Alfie Rosa M RBC (Bld) [#/Vol] 5.68 106/ul Critically high 4.20-5.40 [facility] Comment on above: Result Comment: crit ical value repeated and verified for wbc Performed By: #### Colt MERRILL, PERSMR #### [facility] [address] [place], [place] [phone] Alfie Rosa M SEG # 24.31 103/ul Critically high 1.40-6.50 [facility] Comment on above: Performed By: #### Colt MERRILL, PERSMR #### [facility] [address] [place], [place] [phone] Alfie Rosa M Segmented neutrophils/100 WBC (Bld) 73.0 % Normal 43.0-75.0 [facility] Comment on above: Performed By: #### Colt MERRILL, PERSMR #### [facility] [address] [place] [address] Alfie Rosa M WBC (Bld) [#/Vol] 33.3 103/ul Critically high 4.0-11.0 [facility] Comment on above: Result Comment: crit ical toya Performed By: #### Colt MERRILL, PERSMR #### [facility] [address] [place], [place] [phone] Alfie Rosa M CBC auto differentialon 07-02 Basophils (Bld) [#/Vol] 0.00 10*3/uL [facility], [place] Basophils/100 WBC (Bld) 0 % 0 - 2 % [facility], [place] Differential Type NOT REPORTED [facility], [place] Eosinophils (Bld) [#/Vol] 0.00 10*3/uL [facility], [place] Eosinophils/100 WBC (Bld) 0 % Low 1 - 4 % [place] Erythrocyte distribution width (RBC) [Ratio] 13.0 % 11.8 - 14.4 % [place] Hematocrit (Bld) [Volume fraction] 45.0 % 36.3 - 47.1 % [place] Hemoglobin (Bld) [Mass/Vol] 14.0 g/dL 11.9 - 15.1 g/dL [place] Immature granulocytes (Bld) [#/Vol] 0.86 10*3/uL [place] Immature granulocytes (Bld) [#/Vol] 3 % High 0 [place] Interpretation and review of laboratory results Abnormal [place] Lymphocytes (Bld) [#/Vol] 1.43 10*3/uL [place] Lymphocytes/100 WBC (Bld) 5 % Low 24 - 44 % [place] MCH (RBC) [Entitic mass] 26.3 pg 25.2 - 33.5 pg [place] MCHC (RBC) [Mass/Vol] 31.1 g/dL 28.4 - 34.8 g/dL [place] MCV (RBC) [Entitic vol] 84.6 fL 82.6 - 102.9 fL [place] Monocytes (Bld) [#/Vol] 1.14 10*3/uL [place] Monocytes/100 WBC (Bld) 4 % 1 - 7 % [place] Morphology Calvin (Bld) [Interp] Normal [place] Platelet mean volume (Bld) [Entitic vol] 9.9 fL 8.1 - 13.5 fL [place] Platelets (Bld) [#/Vol] 346 10*3/uL [place] Platelets (Bld) [#/Vol] NOT REPORTED [place] RBC (Bld) [#/Vol] 5.32 10*6/uL High 3.95 - 5.1 1 m/uL [place] RBC morphology finding Nom (Bld) NOT REPORTED [place] Segmented neutrophils/100 WBC (Bld) 88 % High 36 - 66 % [place] Segs Absolute 25.07 [place] WBC (Bld) [#/Vol] 0.0 10*3/uL 0.0 per 10 0 WBC [place] WBC (Bld) [#/Vol] 28.5 10*3/uL [place] WBC Morphology NOT REPORTED [place] CT HEAD WO CONon 07-29-2020 CT [...] patient can remain still. Electronically authenticated by: DARCIE BRUNER Date: 2020-07-29 17:22 Normal [facility] CULTURE URINEon 07-29-2020 CULTURE URINE Culture Observations: NO GROWTH Normal [facility] Comment on above: Performed By: #### D RUGRPD #### [facility] [address] [address] Alfie Arizmendien DRUG SCREEN RAPID (URINE)on 07-29-2020 AMP Negative Normal NEGATIVE [facility] Comment on above: Performed By: #### D RUGRPD #### [facility] [address] [id number] Alfie Rosa M BAR Negative Normal NEGATIVE [facility] Comment on above: Performed By: #### D RUGRPD #### [facility] [address] [id number] Alfie Rosa M BUP Negative Normal NEGATIVE [facility] Comment on above: Performed By: #### D RUGRPD #### [facility] [address] [address] Alfie Rosa M BZO Negative Normal NEGATIVE [facility] Comment on above: Performed By: #### D RUGRPD #### [facility] [address] [place] [address] Alfie Rosa M KRISTINA Negative Normal NEGATIVE [facility] Comment on above: Performed By: #### D RUGRPD #### [facility] [address] [place] [address] Alfie Rosa M CUT-OFFS SEE BELOW Normal [facility] Comment on above: Result Comment: AMP [...] ng/mL Performed By: #### D RUGRPD #### [facility] [address] [place] [address] Alfie Rosa M DRUG CUT HEADER DRUG CLASS TEST SYSTEM CUT-OFF CONCENTRATIONS ARE FOLLOWS: Normal [facility] Comment on above: Performed By: #### D RUGRPD #### [facility] [address] [place] [address] Alfie Rosa M mAMP Negative Normal NEGATIVE [facility] Comment on above: Performed By: #### D RUGRPD #### [facility] [address] [place] [address] Alfie Rosa M MTD Negative Normal NEGATIVE [facility] Comment on above: Performed By: #### D RUGRPD #### [facility] [address] [place] [address] Alfie Rosa M OPI Negative Normal NEGATIVE [facility] Comment on above: Performed By: #### D RUGRPD #### [facility] [address] [place] [address] Alfie Rosa M OXY Negative Normal NEGATIVE [facility] Comment on above: Performed By: #### D RUGRPD #### [facility] [address] [place] [address] Alfie Rosa M PCP Negative Normal NEGATIVE [facility] Comment on above: Performed By: #### D RUGRPD #### [facility] [address] [place] [address] Alfie Rosa M PPX Negative Normal NEGATIVE [facility] Comment on above: Performed By: #### D RUGRPD #### [facility] [address] [place], [place] [id number] Alfie Rosa M TCA Negative Normal NEGATIVE [facility] Comment on above: Performed By: #### D RUGRPD #### [facility] [address] [place], [place] [phone] Alfie Rosa M THC Negative Normal NEGATIVE [facility] Comment on above: Performed By: #### D RUGRPD #### [facility] [address] [place] [address] Alfie Rosa M ER URINE PROFILEon 1 Bilirubin [Mass/Vol] Negative Normal NEGATIVE [facility] Comment on above: Performed By: #### D RUGRPD #### [facility] [address] [place] [address] Alfie Rosa M BLOOD MODERATE Abnormal NEGATIVE [facility] Comment on above: Performed By: #### D RUGRPD #### [facility] [address] [place] [address] Alfie Rosa M Clarity (U) CLEAR Normal CLEAR [facility] Comment on above: Performed By: #### D RUGRPD #### [facility] [address] [place] [address] Alfie Rosa M Color (U) LT. YELLOW Normal YELLOW [facility] Comment on above: Performed By: #### D RUGRPD #### [facility] [address] [place], [place] [phone] Alfie Rosa M ERUAHD A micrscopic examination will be performed if indicated. Normal [facility] Comment on above: Performed By: #### D RUGRPD #### [facility] [address] [place] [address] Alfie Rosa M Glucose [Mass/Vol] >1000 Abnormal NEGATIVE [facility] Comment on above: Performed By: #### D RUGGUILLERMOD #### [facility] [address] [place], [place] [phone] Alfie Rosa M Ketones Ql (U) >=80 Abnormal NEGATIVE [facility] Comment on above: Performed By: #### D RUGGUILLERMOD #### [facility] [address] [place], [place] [phone] Alfie Rosa M Nitrite Ql (U) Negative Normal NEGATIVE [facility] Comment on above: Performed By: #### D RUGGUILLERMOD #### [facility] [address] [place] [address] Alfie Rosa M pH (Bld) 5.5 Normal 5-9 [facility] Comment on above: Performed By: #### D KAILEY #### [facility] [address] [place] [address] Alfie Rosa M Protein (U) [Mass/Vol] 30 mg/dL Abnormal NEGAT SHREYA/ TRACE [facility] Comment on above: Performed By: #### D KAILEY #### [facility] [address] [place] [address] Alfie Rosa M SPEC GRAVITY 1.025 Normal 1.005-<=1.025 [facility] Comment on above: Performed By: #### D KAILEY #### [facility] [address] [place] [address] Alfie Rosa M UR MICRO IND INDICATED Normal [facility] Comment on above: Performed By: #### D KAILEY #### [facility] [address] [place] [address] Alfie Rosa M Urobilinogen Qn (U) 0.2 EU/dl Normal 0.2 - 1.0 [facility] Comment on above: Performed By: #### D KAILEY #### [facility] [address] [place], [place] [phone] Alfie Rosa M WBC (Bld) [#/Vol] Negative Normal NEGATIVE [facility] Comment on above: Performed By: #### D KAILEY #### [facility] [address] [place], [place] [phone] Alfie Rosa M ETHANOL (BLD ALC)on 07-29-19 21 Ethanol [Mass/Vol] NOTE: 80 mg/dl is the legal limit for a blood alcohol level Normal [facility] Comment on above: Performed By: #### D RUGRPD #### [facility] [address] [place], [place] [address] Alfie Rosa M Ethanol [Mass/Vol] mg/dL Normal [facility] Comment on above: Performed By: #### D RUGRPD #### [facility] [address] [phone] Alfie Rosa M LACTIC ACID, WHOLE BLOODon 0 07-29-2020 Lactic Acid, Whole Blood 1.1 mmol/L 0.7 - 2.1 mmol/L [place] Magnesiumon 07-29-2020 Magnesium [Mass/Vol] 2.0 mg/dL 1.6 - 2 .6 mg/dL [place] Magnesium [Mass/Vol] 1.8 mg/dL 1.6 - 2 .6 mg/dL [place] NAon 07-29-2020 Sodium [Moles/Vol] 138 mmol/L Normal 137-145 [facility] Comment on above: Performed By: #### K , NA #### [facility] [address] [place], [place] [address] Alfie Rosa M PERIPHERAL SMEARon Pathologist Cyto stain Nom (Cvx/Vag) [ID] DR. LUÍS HAY Normal [facility] Comment on above: Result Comment: nini ed neutrophilia with left shift, rule out infectious process mild erythrocytosis CPT: 30947 luís hay 08-01-20 Performed By: #### C DESIRAE, PERSMR #### [facility] [address] [place], [place] [address] Alfie Rosa M PH VENOUS BLOODon 07-29-2020 PCO2 VENOUS 21.5 mmHg Critically low 40.0-52.0 [facility] Comment on above: Performed By: #### A BG #### [facility] [address] [place], [place] [address] Alfie Rosa M pH VENOUS <6.93 Critically low 7.33-7.43 [facility] Comment on above: Performed By: #### A BG #### [facility] [address] [place], [place] [address] Alfie Rosa M POC Glucose Fingerstickon Glucose [Mass/Vol] 334 mg/dL High 65 - 105 mg/dL [place], [place] Interpretation and review of laboratory results Abnormal [place] Glucose [Mass/Vol] 340 mg/dL High 65 - 105 mg/dL [place], [place] Interpretation and review of laboratory results Abnormal [place] Glucose [Mass/Vol] 363 mg/dL High 65 - 105 mg/dL [place] Interpretation and review of laboratory results Abnormal [place] POINT OF CARE GLUCOSEon 07-02 Glucose [Mass/Vol] 337 mg/dL Critically high 74-106 [facility] Comment on above: Performed By: #### P OCGLUC #### [facility] [address] [id number] Alfie Rosa M Glucose [Mass/Vol] 367 mg/dL Critically high 74-106 [facility] Comment on above: Performed By: #### D RUGRPD #### [facility] [address] [id number] Alfie Rosa M Glucose [Mass/Vol] 375 mg/dL Critically high -106 [facility] Comment on above: Performed By: #### D RUGRPD #### [facility] [address] [phone] Alfie Rosa M Glucose [Mass/Vol] 403 mg/dL Critically high 74-106 [facility] Comment on above: Performed By: #### A BG #### [facility] [address] [place], [place] [address] Alfie Rosa M POTASSIUMon 07-29-2020 Potassium [Moles/Vol] 4.0 mmol/L Normal 3.4-5.0 [facility] Comment on above: Performed By: #### K , NA #### [facility] [address] [place], [place] [address] Alfie Rosa M URon 01-30-2021 , QUAL Negative Normal NEGATIVE [facility] Comment on above: Performed By: #### P REGU #### [facility] [address] [place], [place] [address] Alfie Mederos PROF 14(COMP METB)on 021 Albumin [Mass/Vol] 3.2 g/dL Critically low 3.5-5.0 [facility] Comment on above: Performed By: #### D BELTRAND #### [facility] [address] [phone] Alfie Mederos Albumin/Globulin [Mass ratio] 1.0 {ratio} Normal [facility] Comment on above: Performed By: #### D BELTRAND #### [facility] [address] [place], [place] [phone] Alfie Mederos ALP [Catalytic activity/Vol] 135 U/L Critically high 38-126 [facility] Comment on above: Performed By: #### D KAILEY #### [facility] [address] [phone] Alfie Mederos ALT [Catalytic activity/Vol] 27 U/L Normal 9-52 [facility] Comment on above: Performed By: #### D KAILEY #### [facility] [address] [place], [place] [address] Alfie Mederos Anion gap [Moles/Vol] 31.9 mmol/L Normal [facility] Comment on above: Performed By: #### D BELTRAND #### [facility] [address] [place], [place] [address] Alfie Mederos AST [Catalytic activity/Vol] 52 U/L Critically high 14-36 [facility] Comment on above: Performed By: #### D BELTRAND #### [facility] [address] [phone] Alfie Mederos Bilirubin Ql (U) 0.5 mg/dL Normal 0.2-1.3 [facility] Comment on above: Performed By: #### D KAILEY #### [facility] [address] [place], [place] [address] Alfie Mederos Calcium [Mass/Vol] 6.8 mg/dL Critically low 8.4-10.2 [facility] Comment on above: Performed By: #### D RUGRPD #### [facility] [address] [place], [place] [address] Alfie Rosa M Chloride [Moles/Vol] 103 mmol/L Normal 98-107 [facility] Comment on above: Performed By: #### D RUGRPD #### [facility] [address] [place], [place] [address] Alfie Rosa M CO2 [Moles/Vol] mmol/L Critically low 22.0-30.0 [facility] Comment on above: Result Comment: TEST REPEATED CRITICAL VALUE VERIFIED Performed By: #### D RUGRPD #### [facility] [address] [place], [place] [address] Alfie Rosa M Creatinine [Mass/Vol] 1.08 mg/dL Critically high 0.52-1.04 [facility] Comment on above: Performed By: #### D RUGRPD #### [facility] [address] [place] [address] Alfie Rosa M EGFR-AF [place] >60 Normal >=60 [facility] Comment on above: Performed By: #### D RUGRPD #### [facility] [address] [place], [place] [address] Alfie Rosa M EGFR-NON AF [place] >60 Normal >=60 [facility] Comment on above: Performed By: #### D RUGRPD #### [facility] [address] [place] [address] Alfie Rosa M Globulin (S) [Mass/Vol] 3.1 g/dL Normal [facility] Comment on above: Performed By: #### D RUGRPD #### [facility] [address] [place] [address] Alfie Rosa M Glucose [Mass/Vol] 448 mg/dL Critically high 74-106 [facility] Comment on above: Performed By: #### D RUGRPD #### [facility] [address] [place] [address] Alfie Rosa M Potassium [Moles/Vol] 3.9 mmol/L Normal 3.4-5.0 [facility] Comment on above: Performed By: #### D RUGRPD #### [facility] [address] [place], [place] [address] Alfiejamie Mederos Protein [Mass/Vol] 6.3 g/dL Normal 6.1-8.2 [facility] Comment on above: Performed By: #### D RUGRPD #### [facility] [address] [place], [place] [address] Alfiejamie Mederos Sodium [Moles/Vol] 136 mmol/L Critically low 137-145 [facility] Comment on above: Performed By: #### D RUGRPD #### [facility] [address] [place], [place] [address] Alfie Rosa M Urea nitrogen [Mass/Vol] 28.0 mg/dL Critically high 7.0-17 .0 [facility] Comment on above: Performed By: #### D RUGRPD #### [facility] [address] [place], [place] [address] Alfie Rosa M Urea nitrogen/Creatinine [Mass ratio] 25.9 mg/mg Normal [facility] Comment on above: Performed By: #### D RUGRPD #### [facility] [address] [place], [place] [address] Alfie Mederos Phosphoruson 07-29-2020 Phosphate [Mass/Vol] 2.9 mg/dL 2.6 - 4 .5 mg/dL [place] Phosphate [Mass/Vol] 2.6 mg/dL 2.6 - 4 .5 mg/dL [place] Rapid Covid-19 PCR (CVDRPD)o n 07-29-2020 [facility] SEE BELOW Normal [facility] Comment on above: Result Comment: This test is not yet approved or cleared by the [place] Food and Drug Administration (FDA) . This test was developed by [employer], [place]. The performance characteristics of this test were validated by [facility]. The results are not intended to be used as the sole means for clinical diagnosis or patient management decisions. [facility] is authorized under Clinical Laboratory Improvement Amendments (CLIA) to perform high-complexity testing. When diagnostic testing is negative, the possibility of a false negative should be considered in the context of a patients recent exposures and the presence of clinical signs and symptoms consistent with SARS-CoV-2. Performed By: #### C VDRPD #### [facility] [address] [place] [address] Alfie Rosa M SARS-CoV-2 NOT DETECTED Normal NOT DETECTED [facility] Comment on above: Result Comment: This test is not yet approved or cleared by the [place] Food and Drug Administration (FDA). This test was developed by [employer], [place]. The performance characteristics of this test were validated by [facility]. The results are not intended to be used as the sole means for clinical diagnosis or patient management decisions. [facility] is authorized under Clinical Laboratory Improvement Amendments (CLIA) to perform high-complexity testing. Performed By: #### C VDRPD #### [facility] [address] [place] [address] Alfie Rosa M SALICYLATEon 07-29-2020 SALICYLATE 10.6 mg/dL Normal <=20.0 [facility] Comment on above: Performed By: #### A BG #### [facility] [address] [place] [address] Alfie Rosa M URINE MICROSCOPIC ONLYon AMORPHOUS CRYSTALS FEW Normal [facility] Comment on above: Performed By: #### D RUGRPD #### [facility] [address] [place] [address] Alfie Rosa M Bacteria LM.HPF (Urine sed) [#/Area] SMALL Abnormal NONE SEEN [facility] Comment on above: Performed By: #### D RUGRPD #### [facility] [address] [place] [address] Alfie Rosa M CAST NONE SEEN Normal NONE SEEN [facility] Comment on above: Performed By: #### D RUGRPD #### [facility] [address] [place] [address] Alfie Rosa M Crystals LM Nom (Urine sed) SEEN Abnormal NONE SEE N [facility] Comment on above: Performed By: #### D RUGRPD #### [facility] [address] [place] [address] Alfie Rosa M CULTURE INDICATED Normal [facility] Comment on above: Performed By: #### D RUGRPD #### [facility] [address] [place], [place] [address] Alfie Rosa M Epithelial cells LM.HPF (Urine sed) [#/Area] FEW Abnormal NONE SEEN /RARE [facility] Comment on above: Performed By: #### D RUGRPD #### [facility] [address] [place], [place] [address] Alfie Rosa M MUCOUS TRACE Abnormal NONE SEEN [facility] Comment on above: Performed By: #### D RUGRPD #### [facility] [address] [place], [place] [address] Alfie Rosa M RBC (U) [#/Vol] 2-5 Abnormal 0-2 [facility] Comment on above: Performed By: #### D RUGRPD #### [facility] [address] [place], [place] [address] Alfie Rosa M WBC (Bld) [#/Vol] 2-5 Abnormal NONE SEEN [facility] Comment on above: Performed By: #### D RUGRPD #### [facility] [address] [place], [place] [address] Alfie Rosa M XR CHEST 1 Von 07-29-2020 XR CHEST 1 V CHEST X-RAY, 1 VIEW HISTORY: Acute respiratory distress.. COMPARISON: None. FINDINGS: The heart, quin, and mediastinum are unremarkable. There is right lower lobe airspace disease. There are no pleural effusions. There is no pneumothorax. IMPRESSION: Right lower lobe atelectasis or infiltrate. Electronically authenticated by: TAMIKO ÁLVAREZ Date: 2020-07-29 11:44 Normal [facility] Comprehensive Metabolic Pane galileo 06-10-2020 Albumin [Mass/Vol] 2.3 g/dL Low 3.2 - 5.2 g/dL [facility] ALP [Catalytic activity/Vol] 70 U/L 40 - 140 U/L [facility] ALT [Catalytic activity/Vol] 21 U/L 14 - 65 U/L [facility] Anion gap [Moles/Vol] 9 mmol/L Low 10 - 20 mmol/L [facility] AST [Catalytic activity/Vol] 14 U/L 0 - 45 U/L [facility] Bilirubin [Mass/Vol] 0.3 mg/dL 0 - 1.3 mg/dL [facility] Calcium [Mass/Vol] 8.4 mg/dL 8.4 - 10. 2 mg/dL [facility] Chloride [Moles/Vol] 111 mmol/L High 98 - 10 8 mmol/L [facility] Creatinine [Mass/Vol] 0.56 mg/dL 0.40 - 1.10 [facility] GFR/1.73 sq M predicted among non-blacks MDRD (S/P/Bld) [Vol rate/Area] The eGFR should be used for monitoring renal function only and not for medication dosing. [facility] GFR/1.73 sq M.predicted CKD-EPI (S/P/Bld) [Vol rate/Area] 128 >=60 mL/min/1.73 m2 [facility] Glucose [Mass/Vol] 267 mg/dL High 65 - 99 mg/dL [facility] HCO3 [Moles/Vol] 24 mmol/L 21 - 32 mmol/L [facility] Interpretation and review of laboratory results Abnormal [facility] Potassium [Moles/Vol] 3.9 mmol/L 3.5 - 5.1 mmol/L [facility] Protein [Mass/Vol] 5.5 g/dL Low 6 - 8 g/dL [facility] Sodium [Moles/Vol] 140 mmol/L 135 - 145 mmol/L [facility] Urea nitrogen [Mass/Vol] 9 mg/dL 8 - 25 mg/d L [facility] Urea nitrogen/Creatinine [Mass ratio] 16.1 mg/mg [facility] POC Glucoseon 06-10-2020 Glucose [Mass/Vol] 236 mg/dL High 65 - 99 mg/dL [facility] Interpretation and review of laboratory results Abnormal [facility] Glucose [Mass/Vol] 457 mg/dL Critically high 65 - 99 mg/d L [facility] Interpretation and review of laboratory results Abnormal [facility] Critical result acted upon time of test. Test performed at bedside. [facility] Glucose [Mass/Vol] 313 mg/dL High 65 - 99 mg/dL [facility] Interpretation and review of laboratory results Abnormal [facility] Phosphoruson 06-10-2020 Interpretation and review of laboratory results Normal [facility] Phosphate [Mass/Vol] 3.7 mg/dL 2.7 - 4 .5 mg/dL [facility] CBC WITH AUTO DIFFERENTIALon 12-11-2020 Basophils (Bld) [#/Vol] 0.01 10*3/uL [facility] Basophils/100 WBC (Bld) 0.2 % [facility] Eosinophils (Bld) [#/Vol] 0.03 10*3/uL [facility] Eosinophils/100 WBC (Bld) 0.5 % [facility] Erythrocyte distribution width (RBC) [Entitic vol] 13.9 % 11.6 - 14.8 % [facility] Hematocrit (Bld) [Volume fraction] 34.1 % Low 36 - 46 % [facility] Hemoglobin (Bld) [Mass/Vol] 11.8 g/dL Low 12 - 16 g/dL [facility] Immature granulocytes (Bld) [#/Vol] 0.02 10*3/uL [facility] Immature granulocytes/100 WBC (Bld) 0.30 % [facility] Comment on above: The IG parameter is the percentage of metamyelocytes, myelocytes and promyelocytes. An immature granulocyte count (IG) of 1% or more suggests the possibility of infection, an IG count of 3% is very likely related to an infection. Interpretation and review of laboratory results Abnormal [facility] Lymphocytes (Bld) [#/Vol] 1.33 10*3/uL [facility] Lymphocytes/100 WBC (Bld) 22.1 % [facility] MCH (RBC) [Entitic mass] 27.0 pg 26 - 34 pg [facility] MCHC (RBC) [Mass/Vol] 34.6 g/dL 31 - 37 g/dL [facility] MCV (RBC) [Entitic vol] 78.0 fL Low 80 - 100 fL [facility] Monocytes (Bld) [#/Vol] 0.57 10*3/uL [facility] Monocytes/100 WBC (Bld) 9.5 % [facility] Neutrophils (Bld) [#/Vol] 4.05 10*3/uL [facility] Neutrophils/100 WBC (Bld) 67.4 % [facility] Nucleated RBC (Bld) [#/Vol] 0.00 10*3/uL [facility] Nucleated RBC/100 WBC (Bld) [Ratio] 0.0 % [facility] Platelet mean volume (Bld) [Entitic vol] 9.8 fL 9.4 - 12.4 fL [facility] Platelets (Bld) [#/Vol] 255 10*3/uL [facility] [facility] RBC (Bld) [#/Vol] 4.37 10*6/uL [facility] WBC (Bld) [#/Vol] 6.01 10*3/uL [facility] Comprehensive Metabolic Pane galileo 06-09-2020 Albumin [Mass/Vol] 2.6 g/dL Low 3.2 - 5.2 g/dL [facility] ALP [Catalytic activity/Vol] 68 U/L 40 - 140 U/L [facility] ALT [Catalytic activity/Vol] 19 U/L 14 - 65 U/L [facility] Anion gap [Moles/Vol] 11 mmol/L 10 - 20 mmol/L [facility] AST [Catalytic activity/Vol] 11 U/L 0 - 45 U/L [facility] Bilirubin [Mass/Vol] 0.4 mg/dL 0 - 1.3 mg/dL [facility] Calcium [Mass/Vol] 8.5 mg/dL 8.4 - 10. 2 mg/dL [facility] Chloride [Moles/Vol] 110 mmol/L High 98 - 10 8 mmol/L [facility] Creatinine [Mass/Vol] 0.59 mg/dL 0.40 - 1.10 [facility] GFR/1.73 sq M predicted among non-blacks MDRD (S/P/Bld) [Vol rate/Area] The eGFR should be used for monitoring renal function only and not for medication dosing. [facility] GFR/1.73 sq M.predicted CKD-EPI (S/P/Bld) [Vol rate/Area] 126 >=60 mL/min/1.73 m2 [facility] Glucose [Mass/Vol] 239 mg/dL High 65 - 99 mg/dL [facility] HCO3 [Moles/Vol] 19 mmol/L Low 21 - 32 mmol/L [facility] Potassium [Moles/Vol] 3.2 mmol/L Low 3.5 - 5.1 mmol/L [facility] Protein [Mass/Vol] 5.8 g/dL Low 6 - 8 g/dL [facility] Sodium [Moles/Vol] 137 mmol/L 135 - 145 mmol/L [facility] Urea nitrogen [Mass/Vol] 6 mg/dL Low 8 - 25 mg/d L [facility] Urea nitrogen/Creatinine [Mass ratio] 10.2 mg/mg [facility] Magnesium Levelon 06-09-2020 Interpretation and review of laboratory results Normal [facility] Magnesium [Mass/Vol] 1.8 mg/dL 1.6 - 2 .4 mg/dL [facility] Otheron 06-09-2020 Interpretation and review of laboratory results Abnormal [facility] Interpretation and review of laboratory results Abnormal [facility] POC Glucoseon 06-09-2020 Glucose [Mass/Vol] 303 mg/dL High 65 - 99 mg/dL [facility] Interpretation and review of laboratory results Abnormal [facility] Glucose [Mass/Vol] 161 mg/dL High 65 - 99 mg/dL [facility] Glucose [Mass/Vol] 335 mg/dL High 65 - 99 mg/dL [facility] Glucose [Mass/Vol] 264 mg/dL High 65 - 99 mg/dL [facility] Interpretation and review of laboratory results Abnormal [facility] Glucose [Mass/Vol] 247 mg/dL High 65 - 99 mg/dL [facility] Interpretation and review of laboratory results Abnormal [facility] Phosphoruson 06-09-2020 Phosphate [Mass/Vol] 2.1 mg/dL Low 2.7 - 4 .5 mg/dL [facility] Potassium Levelon 06-09-2020 Interpretation and review of laboratory results Normal [facility] Potassium [Moles/Vol] 3.6 mmol/L 3.5 - 5.1 mmol/L [facility] URINALYSISon 06-09-2020 Bacteria Auto Ql (U) None Seen None Seen /hpf [facility] Bilirubin Ql (U) Negative Negative [facility] th Clarity Refractometry automated (U) Clear Clear [facility] Color (U) Colorless Colorless, Yellow [facility] Glucose Auto test strip (U) [Mass/Vol] >=500 Abnormal Negative mg/dL [facility] Hemoglobin Auto test strip Ql (U) Negative Negative [facility] Interpretation and review of laboratory results Abnormal [facility] Ketones (U) [Mass/Vol] Negative Negative mg/d L [facility] Leukocyte esterase Auto test strip Ql (U) Negative Negative [facility] Mucus Auto (Urine sed) [#/Area] Rare None Seen, Rare /lpf [facility] Nitrite Auto test strip Ql (U) Negative Negative [facility] pH (U) 6.0 [pH] [facility] Protein (U) [Mass/Vol] Negative Negative mg/d L [facility] RBC Auto (Urine sed) [#/Area] 1 [facility] Specific gravity (U) [Rel density] 1.009 [facility] Urobilinogen (U) [Mass/Vol] <2.0 <2.0 mg/ dL [facility] WBC Auto (Urine sed) [#/Area] 1 [facility] Microscopic examination is performed on all urinalysis samples and only positive findings are reported. The test for blood on the chemical analytic portion of urinalysis may also be positive due to hemoglobinuria and myoglobinuria and if red blood cells are present they are quantified by microscopic examination. [facility] Basic Metabolic Panelon 12-1 0-2020 Anion gap [Moles/Vol] 18 mmol/L 10 - 20 mmol/L [facility] Calcium [Mass/Vol] 8.7 mg/dL 8.4 - 10. 2 mg/dL [facility] Chloride [Moles/Vol] 107 mmol/L 98 - 10 8 mmol/L [facility] Creatinine [Mass/Vol] 0.82 mg/dL 0.40 - 1.10 [facility] GFR/1.73 sq M predicted among non-blacks MDRD (S/P/Bld) [Vol rate/Area] The eGFR should be used for monitoring renal function only and not for medication dosing. [facility] GFR/1.73 sq M.predicted CKD-EPI (S/P/Bld) [Vol rate/Area] 98 >=60 mL/min/1.73 m2 [facility] Glucose [Mass/Vol] 321 mg/dL High 65 - 99 mg/dL [facility] HCO3 [Moles/Vol] 11 mmol/L Low 21 - 32 mmol/L [facility] Potassium [Moles/Vol] 4.0 mmol/L 3.5 - 5.1 mmol/L [facility] Sodium [Moles/Vol] 132 mmol/L Low 135 - 145 mmol/L [facility] Urea nitrogen [Mass/Vol] 7 mg/dL Low 8 - 25 mg/d L [facility] Urea nitrogen/Creatinine [Mass ratio] 8.5 mg/mg Low [facility] Anion gap [Moles/Vol] 14 mmol/L 10 - 20 mmol/L [facility] Calcium [Mass/Vol] 8.8 mg/dL 8.4 - 10. 2 mg/dL [facility] Chloride [Moles/Vol] 113 mmol/L High 98 - 10 8 mmol/L [facility] Creatinine [Mass/Vol] 0.63 mg/dL 0.40 - 1.10 [facility] GFR/1.73 sq M predicted among non-blacks MDRD (S/P/Bld) [Vol rate/Area] The eGFR should be used for monitoring renal function only and not for medication dosing. [facility] GFR/1.73 sq M.predicted CKD-EPI (S/P/Bld) [Vol rate/Area] 123 >=60 mL/min/1.73 m2 [facility] Glucose [Mass/Vol] 105 mg/dL High 65 - 99 mg/dL [facility] HCO3 [Moles/Vol] 11 mmol/L Low 21 - 32 mmol/L [facility] Interpretation and review of laboratory results Abnormal [facility] Potassium [Moles/Vol] 4.4 mmol/L 3.5 - 5.1 mmol/L [facility] Sodium [Moles/Vol] 134 mmol/L Low 135 - 145 mmol/L [facility] Urea nitrogen [Mass/Vol] 7 mg/dL Low 8 - 25 mg/d L [facility] Urea nitrogen/Creatinine [Mass ratio] 11.1 mg/mg [facility] Anion gap [Moles/Vol] 11 mmol/L 10 - 20 mmol/L [facility] Calcium [Mass/Vol] 8.9 mg/dL 8.4 - 10. 2 mg/dL [facility] Chloride [Moles/Vol] 113 mmol/L High 98 - 10 8 mmol/L [facility] Creatinine [Mass/Vol] 0.55 mg/dL 0.40 - 1.10 [facility] GFR/1.73 sq M predicted among non-blacks MDRD (S/P/Bld) [Vol rate/Area] The eGFR should be used for monitoring renal function only and not for medication dosing. [facility] GFR/1.73 sq M.predicted CKD-EPI (S/P/Bld) [Vol rate/Area] 129 >=60 mL/min/1.73 m2 [facility] Glucose [Mass/Vol] 134 mg/dL High 65 - 99 mg/dL [facility] HCO3 [Moles/Vol] 15 mmol/L Low 21 - 32 mmol/L [facility] Interpretation and review of laboratory results Abnormal [facility] Potassium [Moles/Vol] 3.0 mmol/L Low 3.5 - 5.1 mmol/L [facility] Sodium [Moles/Vol] 136 mmol/L 135 - 145 mmol/L [facility] Urea nitrogen [Mass/Vol] 7 mg/dL Low 8 - 25 mg/d L [facility] Urea nitrogen/Creatinine [Mass ratio] 12.7 mg/mg [facility] Beta-Hydroxybutyrateon 12-10 -2020 Beta hydroxybutyrate [Moles/Vol] 0.4 mmol/L High 0 - 0.3 mmol/L [facility] Beta hydroxybutyrate [Moles/Vol] 0.3 mmol/L 0 - 0.3 mmol/L [facility] CBC WITH AUTO DIFFERENTIALon 06-08-2020 Basophils (Bld) [#/Vol] 0.02 10*3/uL [facility] Basophils/100 WBC (Bld) 0.2 % [facility] Eosinophils (Bld) [#/Vol] 0.02 10*3/uL [facility] Eosinophils/100 WBC (Bld) 0.2 % [facility] Erythrocyte distribution width (RBC) [Entitic vol] 13.4 % 11.6 - 14.8 % [facility] Hematocrit (Bld) [Volume fraction] 37.5 % 36 - 46 % [facility] Hemoglobin (Bld) [Mass/Vol] 13.0 g/dL 12 - 16 g/dL [facility] Immature granulocytes (Bld) [#/Vol] 0.06 10*3/uL [facility] Immature granulocytes/100 WBC (Bld) 0.60 % [facility] Comment on above: The IG parameter is the percentage of metamyelocytes, myelocytes and promyelocytes. An immature granulocyte count (IG) of 1% or more suggests the possibility of infection, an IG count of 3% is very likely related to an infection. Interpretation and review of laboratory results Abnormal [facility] Lymphocytes (Bld) [#/Vol] 0.97 10*3/uL [facility] Lymphocytes/100 WBC (Bld) 10.3 % [facility] MCH (RBC) [Entitic mass] 27.1 pg 26 - 34 pg [facility] MCHC (RBC) [Mass/Vol] 34.7 g/dL 31 - 37 g/dL [facility] MCV (RBC) [Entitic vol] 78.1 fL Low 80 - 100 fL [facility] Monocytes (Bld) [#/Vol] 0.61 10*3/uL [facility] Monocytes/100 WBC (Bld) 6.5 % [facility] Neutrophils (Bld) [#/Vol] 7.76 10*3/uL High [facility] Neutrophils/100 WBC (Bld) 82.2 % [facility] Nucleated RBC (Bld) [#/Vol] 0.01 10*3/uL High [facility] Nucleated RBC/100 WBC (Bld) [Ratio] 0.1 % [facility] Platelet mean volume (Bld) [Entitic vol] 9.2 fL Low 9.4 - 12.4 fL [facility] Platelets (Bld) [#/Vol] 293 10*3/uL [facility] RBC (Bld) [#/Vol] 4.80 10*6/uL [facility] WBC (Bld) [#/Vol] 9.44 10*3/uL [facility] Comprehensive Metabolic Pane galileo 06-08-2020 Albumin [Mass/Vol] 2.6 g/dL Low 3.2 - 5.2 g/dL [facility] ALP [Catalytic activity/Vol] 68 U/L 40 - 140 U/L [facility] ALT [Catalytic activity/Vol] 20 U/L 14 - 65 U/L [facility] Anion gap [Moles/Vol] 15 mmol/L 10 - 20 mmol/L [facility] AST [Catalytic activity/Vol] 17 U/L 0 - 45 U/L [facility] Bilirubin [Mass/Vol] 0.2 mg/dL 0 - 1.3 mg/dL [facility] Calcium [Mass/Vol] 8.5 mg/dL 8.4 - 10. 2 mg/dL [facility] Chloride [Moles/Vol] 112 mmol/L High 98 - 10 8 mmol/L [facility] Creatinine [Mass/Vol] 0.65 mg/dL 0.40 - 1.10 [facility] GFR/1.73 sq M predicted among non-blacks MDRD (S/P/Bld) [Vol rate/Area] The eGFR should be used for monitoring renal function only and not for medication dosing. [facility] GFR/1.73 sq M.predicted CKD-EPI (S/P/Bld) [Vol rate/Area] 122 >=60 mL/min/1.73 m2 [facility] Glucose [Mass/Vol] 255 mg/dL High 65 - 99 mg/dL [facility] HCO3 [Moles/Vol] 12 mmol/L Low 21 - 32 mmol/L [facility] Potassium [Moles/Vol] 3.6 mmol/L 3.5 - 5.1 mmol/L [facility] Protein [Mass/Vol] 5.8 g/dL Low 6 - 8 g/dL [facility] Sodium [Moles/Vol] 135 mmol/L 135 - 145 mmol/L [facility] Urea nitrogen [Mass/Vol] 9 mg/dL 8 - 25 mg/d L [facility] Urea nitrogen/Creatinine [Mass ratio] 13.8 mg/mg [facility] Albumin [Mass/Vol] 2.8 g/dL Low 3.2 - 5.2 g/dL [facility] ALP [Catalytic activity/Vol] 75 U/L 40 - 140 U/L [facility] ALT [Catalytic activity/Vol] 21 U/L 14 - 65 U/L [facility] Anion gap [Moles/Vol] 14 mmol/L 10 - 20 mmol/L [facility] AST [Catalytic activity/Vol] 20 U/L 0 - 45 U/L [facility] Bilirubin [Mass/Vol] 0.2 mg/dL 0 - 1.3 mg/dL [facility] Calcium [Mass/Vol] 8.7 mg/dL 8.4 - 10. 2 mg/dL [facility] Chloride [Moles/Vol] 115 mmol/L High 98 - 10 8 mmol/L [facility] Creatinine [Mass/Vol] 0.56 mg/dL 0.40 - 1.10 [facility] GFR/1.73 sq M predicted among non-blacks MDRD (S/P/Bld) [Vol rate/Area] The eGFR should be used for monitoring renal function only and not for medication dosing. [facility] GFR/1.73 sq M.predicted CKD-EPI (S/P/Bld) [Vol rate/Area] 128 >=60 mL/min/1.73 m2 [facility] Glucose [Mass/Vol] 100 mg/dL High 65 - 99 mg/dL [facility] HCO3 [Moles/Vol] 12 mmol/L Low 21 - 32 mmol/L [facility] Potassium [Moles/Vol] 3.7 mmol/L 3.5 - 5.1 mmol/L [facility] Protein [Mass/Vol] 6.3 g/dL 6 - 8 g/dL [facility] Sodium [Moles/Vol] 137 mmol/L 135 - 145 mmol/L [facility] Urea nitrogen [Mass/Vol] 9 mg/dL 8 - 25 mg/d L [facility] Urea nitrogen/Creatinine [Mass ratio] 16.1 mg/mg [facility] Albumin [Mass/Vol] 2.9 g/dL Low 3.2 - 5.2 g/dL [facility] ALP [Catalytic activity/Vol] 76 U/L 40 - 140 U/L [facility] ALT [Catalytic activity/Vol] 22 U/L 14 - 65 U/L [facility] Anion gap [Moles/Vol] 13 mmol/L 10 - 20 mmol/L [facility] AST [Catalytic activity/Vol] 18 U/L 0 - 45 U/L [facility] Bilirubin [Mass/Vol] 0.2 mg/dL 0 - 1.3 mg/dL [facility] Calcium [Mass/Vol] 8.4 mg/dL 8.4 - 10. 2 mg/dL [facility] Chloride [Moles/Vol] 115 mmol/L High 98 - 10 8 mmol/L [facility] Creatinine [Mass/Vol] 0.64 mg/dL 0.40 - 1.10 [facility] GFR/1.73 sq M predicted among non-blacks MDRD (S/P/Bld) [Vol rate/Area] The eGFR should be used for monitoring renal function only and not for medication dosing. [facility] GFR/1.73 sq M.predicted CKD-EPI (S/P/Bld) [Vol rate/Area] 123 >=60 mL/min/1.73 m2 [facility] Glucose [Mass/Vol] 124 mg/dL High 65 - 99 mg/dL [facility] HCO3 [Moles/Vol] 13 mmol/L Low 21 - 32 mmol/L [facility] Interpretation and review of laboratory results Abnormal [facility] Potassium [Moles/Vol] 3.3 mmol/L Low 3.5 - 5.1 mmol/L [facility] Protein [Mass/Vol] 6.4 g/dL 6 - 8 g/dL [facility] Sodium [Moles/Vol] 138 mmol/L 135 - 145 mmol/L [facility] Urea nitrogen [Mass/Vol] 8 mg/dL 8 - 25 mg/d L [facility] Urea nitrogen/Creatinine [Mass ratio] 12.5 mg/mg [facility] IRON STUDY WITH FERRITINon 1 08-09-2019 Ferritin [Mass/Vol] 56 ng/mL 13 - 150 ng/mL [facility] Interpretation and review of laboratory results Abnormal [facility] Iron [Mass/Vol] 15 ug/dL Low [facility] h Iron binding capacity [Mass/Vol] 254 [facility] Iron saturation [Mass fraction] 6 % Low 20 - 50 % [facility] Magnesiumon 06-08-2020 Magnesium [Mass/Vol] 1.9 mg/dL 1.6 - 2 .4 mg/dL [facility] Otheron 06-08-2020 Interpretation and review of laboratory results Abnormal [facility] Interpretation and review of laboratory results Abnormal [facility] Interpretation and review of laboratory results Normal [facility] Interpretation and review of laboratory results Abnormal [facility] POC Glucoseon 06-08-2020 Glucose [Mass/Vol] 384 mg/dL High 65 - 99 mg/dL [facility] Interpretation and review of laboratory results Abnormal [facility] Glucose [Mass/Vol] 344 mg/dL High 65 - 99 mg/dL [facility] Glucose [Mass/Vol] 131 mg/dL High 65 - 99 mg/dL [facility] Interpretation and review of laboratory results Abnormal [facility] Glucose [Mass/Vol] 143 mg/dL High 65 - 99 mg/dL [facility] Interpretation and review of laboratory results Abnormal [facility] Glucose [Mass/Vol] 159 mg/dL High 65 - 99 mg/dL [facility] Interpretation and review of laboratory results Abnormal [facility] Glucose [Mass/Vol] 169 mg/dL High 65 - 99 mg/dL [facility] Interpretation and review of laboratory results Abnormal [facility] Glucose [Mass/Vol] 270 mg/dL High 65 - 99 mg/dL [facility] Interpretation and review of laboratory results Abnormal [facility] Glucose [Mass/Vol] 269 mg/dL High 65 - 99 mg/dL [facility] Interpretation and review of laboratory results Abnormal [facility] Glucose [Mass/Vol] 106 mg/dL High 65 - 99 mg/dL [facility] Interpretation and review of laboratory results Abnormal [facility] Glucose [Mass/Vol] 110 mg/dL High 65 - 99 mg/dL [facility] Interpretation and review of laboratory results Abnormal [facility] Glucose [Mass/Vol] 115 mg/dL High 65 - 99 mg/dL [facility] Interpretation and review of laboratory results Abnormal [facility] Glucose [Mass/Vol] 103 mg/dL High 65 - 99 mg/dL [facility] Interpretation and review of laboratory results Abnormal [facility] Glucose [Mass/Vol] 121 mg/dL High 65 - 99 mg/dL [facility] Interpretation and review of laboratory results Abnormal [facility] Glucose [Mass/Vol] 158 mg/dL High 65 - 99 mg/dL [facility] Interpretation and review of laboratory results Abnormal [facility] Glucose [Mass/Vol] 139 mg/dL High 65 - 99 mg/dL [facility] Interpretation and review of laboratory results Abnormal [facility] Phosphoruson 06-08-2020 Phosphate [Mass/Vol] 1.4 mg/dL Low 2.7 - 4 .5 mg/dL [facility] XR CHEST PA/APon 06-08-2020 XR CHEST PA/AP EXAMINATION: PORTABLE AP UPRIGHT CHEST: 06/08/2020 AT 2032 HOURS. HISTORY: Diminished to absent lung sounds on the right. Low-grade fever. COMPARISON FILMS: None. FINDINGS: Patient is somewhat rotated, lordotic. The visualized osseous structures appear intact. The heart size seems normal. The aorta is normal contour. There is some patchy density [id number] lung on the right without discrete focal consolidating infiltrates. No pleural effusions, pulmonary edema or pneumothorax. IMPRESSION: 1. Questionable patchy vague densities in the right lower lobe distribution which could be a nonspecific finding however atypical bacterial or viral pneumonia would be difficult to exclude. 2. No acute process otherwise or pleural effusions. [employer] Workstation ID: [id number] Dictated by: MICHAEL DEE on FriJun 08, 2020 9:43:13 PM EST Transcribed by: MORGAN BROWN on FriJun 08, 2020 9:55:57 PM EST Finalized by: MICHAEL DEE on FriJun 08, 2020 10:02:49 PM EST Normal [facility] Comment on above: Order Comment: Injur [...] normal contour. There is some patchy density [id number] lung on the right without discrete focal consolidating infiltrates. No pleural effusions, pulmonary edema or pneumothorax. [facility] 1. Questionable patchy vague densities in the right lower lobe distribution which could be a nonspecific finding however atypical bacterial or viral pneumonia would be difficult to exclude. 2. No acute process otherwise or pleural effusions. [employer] Workstation ID: [id number] [facility] Interface, Rad In [facility] Speechq - 06/08/2020 10:05 PM EST EXAMINATION: PORTABLE AP UPRIGHT CHEST: 06/08/2020 AT 2032 HOURS. HISTORY: Diminished to absent lung sounds on the right. Low-grade fever. COMPARISON FILMS: None. FINDINGS: Patient is somewhat rotated, lordotic. The visualized osseous structures appear intact. The heart size seems normal. The aorta is normal contour. There is some patchy density [id number] lung on the right without discrete focal consolidating infiltrates. No pleural effusions, pulmonary edema or pneumothorax. IMPRESSION: 1. Questionable patchy vague densities in the right lower lobe distribution which could be a nonspecific finding however atypical bacterial or viral pneumonia would be difficult to exclude. 2. No acute process otherwise or pleural effusions. [employer] Workstation ID: [id number] [facility] Basic Metabolic Panelon 12-0 Anion gap [Moles/Vol] 16 mmol/L 10 - 20 mmol/L [facility] Calcium [Mass/Vol] 8.2 mg/dL Low 8.4 - 10. 2 mg/dL [facility] Chloride [Moles/Vol] 114 mmol/L High 98 - 10 8 mmol/L [facility] Creatinine [Mass/Vol] 0.71 mg/dL 0.40 - 1.10 [facility] GFR/1.73 sq M predicted among non-blacks MDRD (S/P/Bld) [Vol rate/Area] The eGFR should be used for monitoring renal function only and not for medication dosing. [facility] GFR/1.73 sq M.predicted CKD-EPI (S/P/Bld) [Vol rate/Area] 117 >=60 mL/min/1.73 m2 [facility] Glucose [Mass/Vol] 172 mg/dL High 65 - 99 mg/dL [facility] HCO3 [Moles/Vol] 10 mmol/L Low 21 - 32 mmol/L [facility] Interpretation and review of laboratory results Abnormal [facility] Potassium [Moles/Vol] 2.8 mmol/L Low 3.5 - 5.1 mmol/L [facility] Sodium [Moles/Vol] 137 mmol/L 135 - 145 mmol/L [facility] Urea nitrogen [Mass/Vol] 7 mg/dL Low 8 - 25 mg/d L [facility] Urea nitrogen/Creatinine [Mass ratio] 9.9 mg/mg Low [facility] Beta-Hydroxybutyrateon 06-07 Beta hydroxybutyrate [Moles/Vol] 1.8 mmol/L High 0 - 0.3 mmol/L [facility] Interpretation and review of laboratory results Abnormal [facility] Beta hydroxybutyrate [Moles/Vol] 5.6 mmol/L High 0 - 0.3 mmol/L [facility] Interpretation and review of laboratory results Abnormal [facility] CBC WITH AUTO DIFFERENTIALon 06-07-2020 Basophils (Bld) [#/Vol] 0.04 10*3/uL [facility] Basophils/100 WBC (Bld) 0.3 % [facility] Eosinophils (Bld) [#/Vol] 0.00 10*3/uL [facility] Eosinophils/100 WBC (Bld) 0.0 % [facility] Erythrocyte distribution width (RBC) [Entitic vol] 13.5 % 11.6 - 14.8 % [facility] Hematocrit (Bld) [Volume fraction] 46.4 % High 36 - 46 % [facility] Hemoglobin (Bld) [Mass/Vol] 14.7 g/dL 12 - 16 g/dL [facility] Immature granulocytes (Bld) [#/Vol] 0.09 10*3/uL [facility] Immature granulocytes/100 WBC (Bld) 0.60 % [facility] Comment on above: The IG parameter is the percentage of metamyelocytes, myelocytes and promyelocytes. An immature granulocyte count (IG) of 1% or more suggests the possibility of infection, an IG count of 3% is very likely related to an infection. Interpretation and review of laboratory results Abnormal [facility] Lymphocytes (Bld) [#/Vol] 1.42 10*3/uL [facility] Lymphocytes/100 WBC (Bld) 9.1 % [facility] MCH (RBC) [Entitic mass] 27.2 pg 26 - 34 pg [facility] MCHC (RBC) [Mass/Vol] 31.7 g/dL 31 - 37 g/dL [facility] MCV (RBC) [Entitic vol] 85.8 fL 80 - 100 fL [facility] Monocytes (Bld) [#/Vol] 0.82 10*3/uL [facility] Monocytes/100 WBC (Bld) 5.3 % [facility] Neutrophils (Bld) [#/Vol] 13.19 10*3/uL High [facility] Neutrophils/100 WBC (Bld) 84.7 % [facility] Nucleated RBC (Bld) [#/Vol] 0.00 10*3/uL [facility] Nucleated RBC/100 WBC (Bld) [Ratio] 0.0 % [facility] Platelet mean volume (Bld) [Entitic vol] 9.5 fL 9.4 - 12.4 fL [facility] Platelets (Bld) [#/Vol] 302 10*3/uL [facility] RBC (Bld) [#/Vol] 5.41 10*6/uL High [facility] WBC (Bld) [#/Vol] 15.56 10*3/uL [facility] Comprehensive Metabolic Pane galileo 06-07-2020 Albumin [Mass/Vol] 3.4 g/dL 3.2 - 5.2 g/dL [facility] ALP [Catalytic activity/Vol] 94 U/L 40 - 140 U/L [facility] ALT [Catalytic activity/Vol] 27 U/L 14 - 65 U/L [facility] Anion gap [Moles/Vol] 22 mmol/L High 10 - 20 mmol/L [facility] AST [Catalytic activity/Vol] 27 U/L 0 - 45 U/L [facility] Bilirubin [Mass/Vol] 0.4 mg/dL 0 - 1.3 mg/dL [facility] Calcium [Mass/Vol] 8.0 mg/dL Low 8.4 - 10. 2 mg/dL [facility] Chloride [Moles/Vol] 113 mmol/L High 98 - 10 8 mmol/L [facility] Creatinine [Mass/Vol] 0.73 mg/dL 0.40 - 1.10 [facility] GFR/1.73 sq M predicted among non-blacks MDRD (S/P/Bld) [Vol rate/Area] The eGFR should be used for monitoring renal function only and not for medication dosing. [facility] GFR/1.73 sq M.predicted CKD-EPI (S/P/Bld) [Vol rate/Area] 113 >=60 mL/min/1.73 m2 [facility] Glucose [Mass/Vol] 199 mg/dL High 65 - 99 mg/dL [facility] HCO3 [Moles/Vol] 6 mmol/L Critically low 21 - 32 mmol/L [facility] Interpretation and review of laboratory results Abnormal [facility] Potassium [Moles/Vol] 4.1 mmol/L 3.5 - 5.1 mmol/L [facility] Protein [Mass/Vol] 7.1 g/dL 6 - 8 g/dL [facility] Sodium [Moles/Vol] 137 mmol/L 135 - 145 mmol/L [facility] Urea nitrogen [Mass/Vol] 11 mg/dL 8 - 25 mg/d L [facility] Urea nitrogen/Creatinine [Mass ratio] 15.1 mg/mg [facility] Hemoglobin A1con 06-07-2020 Average glucose Estimated from glycated hemoglobin mass conc (Bld) 464 mg/dL High 74 - 114 mg/dL [facility] HbA1c (Bld) [Mass fraction] 17.8 % High 4.2 - 5. 6 % [facility] Interpretation and review of laboratory results Abnormal [facility] Normal: 4.2% - 5.6% Increased risk for diabetes: 5.7% - 6.4% Diabetes: >= 6.5% Pediatrics: No established reference range Estimated average glucose: 74-114 mg/dL [facility] Magnesium Levelon 06-07-2020 Interpretation and review of laboratory results Normal [facility] Magnesium [Mass/Vol] 2.0 mg/dL 1.6 - 2 .4 mg/dL [facility] POC Glucoseon 06-07-2020 Glucose [Mass/Vol] 135 mg/dL High 65 - 99 mg/dL [facility] Interpretation and review of laboratory results Abnormal [facility] Glucose [Mass/Vol] 164 mg/dL High 65 - 99 mg/dL [facility] Interpretation and review of laboratory results Abnormal [facility] Glucose [Mass/Vol] 190 mg/dL High 65 - 99 mg/dL [facility] Interpretation and review of laboratory results Abnormal [facility] Glucose [Mass/Vol] 180 mg/dL High 65 - 99 mg/dL [facility] Interpretation and review of laboratory results Abnormal [facility] Glucose [Mass/Vol] 159 mg/dL High 65 - 99 mg/dL [facility] Interpretation and review of laboratory results Abnormal [facility] Glucose [Mass/Vol] 172 mg/dL High 65 - 99 mg/dL [facility] Interpretation and review of laboratory results Abnormal [facility] Glucose [Mass/Vol] 200 mg/dL High 65 - 99 mg/dL [facility] Interpretation and review of laboratory results Abnormal [facility] Glucose [Mass/Vol] 201 mg/dL High 65 - 99 mg/dL [facility] Interpretation and review of laboratory results Abnormal [facility] Glucose [Mass/Vol] 228 mg/dL High 65 - 99 mg/dL [facility] Interpretation and review of laboratory results Abnormal [facility] Glucose [Mass/Vol] 238 mg/dL High 65 - 99 mg/dL [facility] Interpretation and review of laboratory results Abnormal [facility] Glucose [Mass/Vol] 178 mg/dL High 65 - 99 mg/dL [facility] Interpretation and review of laboratory results Abnormal [facility] Glucose [Mass/Vol] 186 mg/dL High 65 - 99 mg/dL [facility] Interpretation and review of laboratory results Abnormal [facility] Phosphoruson 06-07-2020 Interpretation and review of laboratory results Abnormal [facility] Phosphate [Mass/Vol] 2.0 mg/dL Low 2.7 - 4 .5 mg/dL [facility] TSH with Reflex Free T4on Interpretation and review of laboratory results Normal [facility] TSH Qn 0.66 m[IU]/L [facility] Vital Signs Date Time Vital Sign Value Performing Clinician Facility 02-16-2025 10:27-0400 Body mass index (BMI) [Ratio] 28.94 kg/m2 Fam Smart BISTRO ATTENDANT-CNM Work Phone: [facility] 02-16-2025 10:27-0400 Body weight 83.83 kg Fam Smart BISTRO ATTENDANT-CNM Work Phone: [facility] 02-16-2025 10:27-0400 Diastolic blood pressure 80 mm[Hg] Fam Smart BISTRO ATTENDANT-CNM Work Phone: [facility] 02-16-2025 10:27-0400 Systolic blood pressure 110 mm[Hg] Fam Smart BISTRO ATTENDANT-CNM Work Phone: [facility] 01-18-2025 14:12-0400 Body mass index (BMI) [Ratio] 25.06 kg/m2 Caleb Bhagat BISTRO ATTENDANT-FIBROUS PLASTERER Work Phone: [facility] 01-18-2025 14:12-0400 Body weight 72.58 kg Caleb Bhagat BISTRO ATTENDANT-FIBROUS PLASTERER Work Phone: [facility] 10-19-2024 14:14-0400 Body height 172.7 cm Felisa Galloway MD Work Phone: [facility] 10-19-2024 14:14-0400 Body mass index (BMI) [Ratio] 25.7 kg/m2 Felisa Galloway MD Work Phone: [facility] 10-19-2024 14:14-0400 Body weight 76.66 kg Felisa Galloway MD Work Phone: [facility] 10-19-2024 14:14-0400 Diastolic blood pressure 60 mm[Hg] Felisa Galloway MD Work Phone: [facility] 10-19-2024 14:14-0400 Heart rate 88 /min eFlisa Galloway MD Work Phone: [facility] 10-19-2024 14:14-0400 Respiratory rate 18 /min Felisa Galloway MD Work Phone: [facility] 10-19-2024 14:14-0400 SaO2% (BldA) [Mass fraction] 97 % Felisa Galloway MD Work Phone: [facility] 10-19-2024 14:14-0400 Systolic blood pressure 94 mm[Hg] Felisa Galloway MD Work Phone: [facility] 07-12-2024 11:04-0500 Body height 172.7 cm Felisa Galloway MD Work Phone: [facility] 07-12-2024 11:04-0500 Body mass index (BMI) [Ratio] 26.46 kg/m2 Felisa Gallwoay MD Work Phone: [facility] 07-12-2024 11:04-0500 Body weight 78.93 kg Felisa Galloway MD Work Phone: [facility] 07-12-2024 11:04-0500 Diastolic blood pressure 70 mm[Hg] Felisa Galloway MD Work Phone: [facility] 07-12-2024 11:04-0500 Heart rate 108 /min Felisa Galloway MD Work Phone: [facility] 07-12-2024 11:04-0500 Respiratory rate 16 /min Felisa Galloway MD Work Phone: [facility] 07-12-2024 11:04-0500 Systolic blood pressure 100 mm[Hg] Felisa Galloway MD Work Phone: [facility] 05-30-2024 16:52-0500 Body temperature 98.49 [degF] Anjelica Gerardo MD Work Phone: [facility] 05-30-2024 16:52-0500 Diastolic blood pressure 101 mm[Hg] Anjelica Gerardo MD Work Phone: [facility] Comment on above: reported to nurse 05-30-2024 16:52-0500 Heart rate 110 /min Anjelica Gerardo MD Work Phone: [facility] 05-30-2024 16:52-0500 Respiratory rate 19 /min Anjelica Gerardo MD Work Phone: [facility] 05-30-2024 16:52-0500 SaO2% (BldA) [Mass fraction] 94 % Anjelica Gerardo MD Work Phone: [facility] 05-30-2024 16:52-0500 Systolic blood pressure 177 mm[Hg] Anjelica Gerardo MD Work Phone: [facility] Comment on above: reported to nurse 05-29-2024 08:41-0500 Body temperature 98.6 [degF] Anjelica Gerardo MD Work Phone: [facility] 05-27-2024 16:27-0500 Body height 170.2 cm Anjelica Gerardo MD Work Phone: [facility] 05-27-2024 16:27-0500 Body mass index (BMI) [Ratio] 26.93 kg/m2 Anjelica Gerardo MD Work Phone: [facility] 05-27-2024 16:27-0500 Body weight 78 kg Anjelica Gerardo MD Work Phone: [facility] 05-27-2024 13:56-0500 Body temperature 98.6 [degF] Anjelica Gerardo MD Work Phone: [facility] 04-12-2024 11:36-0400 Body height 172.7 cm Felisa Galloway MD Work Phone: [facility] 04-12-2024 11:36-0400 Body mass index (BMI) [Ratio] 28.89 kg/m2 Felisa Galloway MD Work Phone: [facility] 04-12-2024 11:36-0400 Body weight 86.18 kg Felisa Galloway MD Work Phone: [facility] 04-12-2024 11:36-0400 Diastolic blood pressure 82 mm[Hg] Felisa Galloway MD Work Phone: [facility] 04-12-2024 11:36-0400 Heart rate 99 /min Felisa Galloway MD Work Phone: [facility] 04-12-2024 11:36-0400 Respiratory rate 18 /min Felisa Galloway MD Work Phone: [facility] 04-12-2024 11:36-0400 Systolic blood pressure 128 mm[Hg] Felisa Galloway MD Work Phone: [facility] 04-02-2024 10:43-0400 Body height 175.3 cm Kendal Sommers DPM Work Phone: [facility] 04-02-2024 10:43-0400 Body mass index (BMI) [Ratio] 26.73 kg/m2 Kendal Sommers DPM Work Phone: [facility] 04-02-2024 10:43-0400 Body weight 82.1 kg Kendal Sommers DPM Work Phone: [facility] 07-04-2023 12:00-0500 Body temperature 98.01 [degF] Letty Yee MD Work Phone: [facility] 07-04-2023 12:00-0500 Diastolic blood pressure 78 mm[Hg] Letty Yee MD Work Phone: [facility] 07-04-2023 12:00-0500 Heart rate 102 /min Letty Yee MD Work Phone: [facility] 07-04-2023 12:00-0500 Respiratory rate 14 /min Letty Yee MD Work Phone: [facility] 07-04-2023 12:00-0500 SaO2% (BldA) [Mass fraction] 99 % Letty Yee MD Work Phone: [facility] 07-04-2023 12:00-0500 Systolic blood pressure 130 mm[Hg] Letty Yee MD Work Phone: [facility] 07-04-2023 02:48-0500 Body mass index (BMI) [Ratio] 21.76 kg/m2 Letty Yee MD Work Phone: [facility] 07-04-2023 02:48-0500 Body weight 64.9 kg Letty Yee MD Work Phone: [facility] 07-03-2023 10:34-0500 Body height 172.7 cm Letty Yee MD Work Phone: [facility] 07-02-2023 19:16-0500 SaO2% (BldA) [Mass fraction] 100 % SAENZ ALI [facility] Comment on above: Performed By: #### VBG #### [facility] ([id number]) [address] [place] [address] 07-02-2023 17:18-0500 Body temperature 98.6 [degF] Letty Yee MD Work Phone: [facility] 07-02-2023 17:18-0500 SaO2% (BldA) [Mass fraction] 100 % Letty Yee MD Work Phone: [facility] 08-01-2020 19:49-0500 Body Temperature 98.01 [degF] [facility] [place] 08-01-2020 19:49-0500 BP Diastolic 94 mm[Hg] [facility] [place] 08-01-2020 19:49-0500 BP Systolic 146 mm[Hg] [facility] [place] 08-01-2020 19:49-0500 Pulse (Heart Rate) 59 /min [place], [place] 08-01-2020 19:49-0500 Respiratory Rate 18 /min [facility] [place] 08-01-2020 12:00-0500 Pulse Oximetry 92 % [facility] [place] 08-01-2020 06:00-0500 BMI (Body Mass Index) 22.31 kg/m2 [place], [place] 08-01-2020 06:00-0500 Body weight 58.97 kg [place], [place] 07-29-2020 20:00-0500 Height 162.6 cm [place], [place] 07-29-2020 19:50-0500 Respiratory rate NOT REPORTED [place], [place] 06-10-2020 15:59-0500 Body Temperature 98.1 [degF] [facility] 06-10-[facility] 15:59-0500 BP Diastolic 80 mm[Hg] [facility] 06-10-2020 15:59-0500 BP Systolic 115 mm[Hg] [facility] 06-10-2020 15:59-0500 Pulse (Heart Rate) 67 /min [facility] 06-10-2020 15:59-0500 Pulse Oximetry 99 % [facility] 06-10-2020 15:59-0500 Respiratory Rate 16 /min [facility] 06-10-2020 04:39-0500 BMI (Body Mass Index) 20.18 kg/m2 [facility] 06-10-2020 04:39-0500 Body weight 60.2 kg [facility] 06-07-2020 12:31-0500 Height 172.7 cm [facility] Encounters Encounter Date Encounter Type Care Provider Facility Start: 02-27-2025 End: 02-27-2025 Emergency department [facility] Start: 02-23-2025 End: 02-23-2025 Documentation procedure Jennifer Cardona RN [facility] Start: 02-18-2025 End: 02-21-2025 Follow-up encounter Fam MACKENZIEM Work Phone: [facility] Comment on above: Thin Prep Pap Test, Urine Culture, High risk HPV w/kamila, Chlamydia/Gonorrhoeae by PCR, Fluid Start: 02-16-2025 End: 02-16-2025 Telephone encounter Ciera Contreras CMA [facility] Start: 02-16-2025 End: 02-16-2025 Initial care visit Fam MACKENZIEM Work Phone: [facility] Comment on above: GA: 9w2d Start: 02-16-2025 End: 02-16-2025 ambulatory [facility] Start: 02-15-2025 End: 02-15-2025 Orders Only Gia Cross MD Work Phone: [facility] Start: 02-14-2025 End: 02-15-2025 Telephone encounter Gia Cross MD Work Phone: [facility] Start: 01-27-2025 End: 01-27-2025 Telephone encounter Jennifer Cardona RN [facility] Start: 01-25-2025 End: 01-25-2025 Orders Only Caleb Bhagat BISTRO ATTENDANT-FIBROUS PLASTERER Work Phone: [facility] [place] Comment on above: Type 1 diabetes nilo itus complicating in first trimester, antepartum (Primary Dx); Cystitis during in first trimester, antepartum Start: 01-24-2025 End: 01-24-2025 ambulatory CALEB Corin[facility] Start: 01-21-2025 ambulatory CALEB VAUGHNRADHA [facility] Start: 01-18-2025 End: 01-18-2025 Initial care visit Caleb Bhagat BISTRO ATTENDANT-FIBROUS PLASTERER Work Phone: [facility] Comment on above: care, first trimester (Primary Dx); Nausea/vomiting in ; History of gestational hypertension; Pre-existing type 1 diabetes mellitus during in first trimester Start: 01-18-2025 End: 01-18-2025 [facility] Start: 12-30-2024 End: 01-10-2025 Telephone encounter Felisa Galloway MD Work Phone: [facility] Comment on above: Med Refill Start: 10-19-2024 End: 10-19-2024 ambulatory FELISA GALLOWAY Not Available Start: 10-19-2024 End: 10-19-2024 Bamboo flowsheet Felisa Galloway MD Work Phone: [facility] Start: 10-19-2024 End: 10-19-2024 Bamboo flowsheet Felisa Galloway MD Work Phone: [facility] Start: 10-19-2024 End: 10-19-2024 Office outpatient visit 25 minutes Felisa Galloway MD Work Phone: [facility] Comment on above: Type 1 diabetes nilo itus with hyperglycemia (HCC) (CMS/HCC) (Primary Dx); Insulin long-term use (CMS/HCC); Insulin pump in place; Encounter for dietary consultation; Encounter for fitting or adjustment of insulin pump Start: 10-15-2024 End: 10-15-2024 Refill Arcadio Iglesias MD Work Phone: [facility] Comment on above: Type 1 diabetes nilo itus with hyperglycemia (HCC) (CMS/HCC) Start: 07-12-2024 End: 07-12-2024 Bamboo david Galloway MD Work Phone: [facility] Start: 07-12-2024 End: 07-12-2024 Marsha Galloway MD Work Phone: [facility] Start: 07-12-2024 End: 07-12-2024 Office outpatient visit 40 minutes Felisa Galloway MD Work Phone: [facility] Comment on above: Type 1 diabetes nilo itus with hyperglycemia (HCC) (CMS/HCC) (Primary Dx); Insulin long-term use (CMS/HCC); Insulin pump in place; Encounter for dietary consultation; Encounter for fitting or adjustment of insulin pump Start: 07-12-2024 End: 07-12-2024 ambulatory FELISA GALLOWAY Not Available Start: 06-01-2024 End: 06-01-2024 Telephone encounter Anjelica Gerardo MD Work Phone: [facility] Start: 05-27-2024 End: 05-30-2024 Evaluation and management of inpatient Demetri Valenzuela DO Work Phone: [facility] Comment on above: Diabetic ketoacidosi s without coma associated with type 1 diabetes mellitus ([facility]-HCC) (Primary Dx) Start: 04-12-2024 End: 04-12-2024 Marsha Galloway MD Work Phone: [facility] Start: 04-12-2024 End: 04-12-2024 Bamboo flowsheet Felisa Galloway MD Work Phone: [facility] Start: 04-12-2024 End: 04-12-2024 Office outpatient visit 40 minutes Felisa Galloway MD Work Phone: [facility] Comment on above: Type 1 diabetes nilo itus with hyperglycemia (HCC) (CMS/HCC) (Primary Dx); Insulin long-term use (CMS/HCC); Insulin pump in place; Encounter for dietary consultation; Encounter for fitting or adjustment of insulin pump Start: 04-12-2024 End: 04-12-2024 ambulatory FELISA GALLOWAY Not Available Start: 04-02-2024 End: 04-02-2024 Bamboo flowsheet Kendal Sommers DPM Work Phone: [facility] Start: 04-02-2024 End: 04-02-2024 Bamboo flowsheet Kendal Sommers DPM Work Phone: [facility] Start: 04-02-2024 End: 04-02-2024 ambulatory KENDAL SOMMERS Not Available Start: 04-02-2024 End: 04-02-2024 Office outpatient new 45 minutes Kendal Sommers DPM Work Phone: [facility] Comment on above: Right foot injury, i nitial encounter (Primary Dx); Closed fracture of base of fifth metatarsal bone of right foot, initial encounter; Type 1 diabetes mellitus with diabetic autonomic (poly)neuropathy ([facility]/HCC); Fracture of unspecified metatarsal bone(s), unspecified foot, initial encounter for closed fracture; Right foot pain Start: 04-02-2024 End: 04-02-2024 ambulatory KENDAL SOMMERS Not Available Start: 03-05-2024 ambulatory Tyler Galdamez acility:[facility] Start: 03-02-2024 End: 03-02-2024 Emergency department patient visit [facility] Start: 01-26-2024 End: 01-26-2024 Emergency department patient visit Gustavo Marc Facility:[facility] Start: 11-17-2023 End: 11-17-2023 Emergency department patient visit Mami Sahni Facility:[facility] Start: 07-30-2023 End: 07-30-2023 ambulatory ANDRESSA ARNDT Facility:[facility] Start: 07-04-2023 End: 07-04-2023 Emergency department patient visit ARCADIO IGLESIAS [facility] Start: 07-03-2023 End: 07-05-2023 Evaluation and management of inpatient DYLON DARDEN [facility] Start: 07-02-2023 End: 07-04-2023 Evaluation and management of inpatient SAENZJam YEE [facility] Start: 07-02-2023 End: 07-04-2023 Evaluation and management of inpatient Saenzsanchez Yee MD Work Phone: [facility] - GEN 7 ICU Comment on above: Diabetic ketoacidosi s without coma associated with type 1 diabetes mellitus ([facility]) (Primary Dx); Type 1 diabetes mellitus with ketoacidosis without coma ([facility]) Start: 06-12-2023 End: 06-13-2023 Evaluation and management of inpatient ARCADIO IGLESIAS Facility:[facility] Start: 05-29-2023 End: 05-30-2023 Emergency department patient visit Linn Johnson Facility:[facility] Start: 03-18-2023 End: 03-20-2023 Evaluation and management of inpatient MARTIN DAVIS [facility] Start: 03-17-2023 End: 03-18-2023 Emergency department patient visit Linn Johnson Facility:[facility] Start: 03-16-2023 End: 03-16-2023 ambulatory Nirav Armenta Facility:[facility] Start: 08-25-2022 End: 08-26-[address] ARCADIO IGLESIAS Facility: Start: 03-18-2022 End: 03-18-[address] ARCADIO IGLESIAS Facility:[facility] Start: 12-26-[address] ARCADIO IGLESIAS Facil ity:[facility] Start: 08-17-2020 End: 08-17-2020 Orders Only Uyen Harrisanzana Work Phone: [facility] Start: 07-29-2020 End: 08-02-2020 Evaluation and management of inpatient Naomy Morse Work Phone: [id number] Start: 07-29-2020 End: 07-29-2020 Patient encounter procedure [facility] Facility: Start: 06-07-2020 End: 06-10-2020 Evaluation and management of inpatient PHYSICIAN NO [facility] Start: 06-07-2020 End: 06-10-2020 Evaluation and management of inpatient Goitom Andom Asgedom Work Phone: [facility] [address] [place] [address] Start: 07-07-2018 End: 07-08-2018 Patient encounter procedure DEFAULT PHYSICIAN Facility:[facility] Procedures Date Procedure Procedure Detail Performing Clinician Start: 02-16-2025 Microscopic observat ion [Identifier] in Cervix by Cyto stain Ciera Contreras OXYGRAPH OPERATOR Start: 02-15-2025 Adult depression scr eening assessment Gia Cross MD Work Phone: Start: 01-21-2025 Antibody screen ARCADIO FROST Comment on above: Performed By: #### B MP #### [facility] ([id number]) [address] [place] [address], [place] [address] Start: 01-18-2025 H/O: section History of 2 sections Caleb Bhagat BISTRO ATTENDANT-FIBROUS PLASTERER Work Phone: Start: 10-19-2024 Gluc bld gluc mntr d ev cleared fda spec home use Felisa Galloway MD Work Phone: Start: 07-12-2024 Gluc bld gluc mntr d ev cleared fda spec home use Felisa Galloway MD Work Phone: Start: 05-30-2024 Gluc bld gluc mntr d ev cleared fda spec home use Anjelica Gerardo MD Work Phone: Start: 05-30-2024 Electrolyte panel Mica Vicente BISTRO ATTENDANT-FIBROUS PLASTERER Work Phone: Start: 05-30-2024 Gluc bld gluc mntr d ev cleared fda spec home use Anjelica Gerardo MD Work Phone: Start: 05-30-2024 Comprehensive metabo lic panel Ruby Vicente BISTRO ATTENDANT-FIBROUS PLASTERER Work Phone: Start: 05-30-2024 End: 05-30-2024 Potassium serum plasma/whole blood Anjelica Gerardo MD Work Phone: Start: 05-29-2024 Gluc bld gluc mntr d ev cleared fda spec home use Anjelica Gerardo MD Work Phone: Start: 05-29-2024 End: 05-29-2024 Electrolyte panel Ruby Vicente BISTRO ATTENDANT-FIBROUS PLASTERER Work Phone: Start: 05-29-2024 End: 05-29-2024 Assay of magnesium Anjelica Gerardo MD Work Phone: Start: 05-29-2024 Urnls dip stick/tabl et rgnt auto w/o microscopy Ruby Vicente BISTRO ATTENDANT-FIBROUS PLASTERER Work Phone: Start: 05-29-2024 Gluc bld gluc mntr d ev cleared fda spec home use Anjelica Gerardo MD Work Phone: Start: 05-29-2024 End: 05-29-2024 Electrolyte panel Ruby Vicente BISTRO ATTENDANT-FIBROUS PLASTERER Work Phone: Start: 05-29-2024 Ct abdomen & pelvis w/contrast material Ruby Vicente BISTRO ATTENDANT-FIBROUS PLASTERER Work Phone: Start: 05-29-2024 End: 05-29-2024 Gluc bld gluc mntr dev cleared fda spec home use Anjelica Gerardo MD Work Phone: Start: 05-29-2024 Blood gases any combination ph pco2 po2 co2 hco3 Anjelica Gerardo MD Work Phone: Start: 05-29-2024 End: 05-29-2024 Electrolyte panel Ruby Vicente APRN-FIBROUS PLASTERER Work Phone: Start: 05-29-2024 End: 05-29-2024 Comprehensive metabolic panel Ruby Vicente APRN-FIBROUS PLASTERER Work Phone: Start: 05-29-2024 Gluc bld gluc mntr d ev cleared fda spec home use Anjelica Gerardo MD Work Phone: Start: 05-29-2024 Gluc bld gluc mntr d ev cleared fda spec home use Anjelica Gerardo MD Work Phone: Start: 05-29-2024 End: 05-29-2024 Gluc bld gluc mntr dev cleared fda spec home use Anjelica Gerardo MD Work Phone: Start: 05-29-2024 Gluc bld gluc mntr d ev cleared fda spec home use Anjelica Gerardo MD Work Phone: Start: 05-28-2024 End: 05-29-2024 Electrolyte panel Ruby Vicente APRN-FIBROUS PLASTERER Work Phone: Start: 05-28-2024 Gluc bld gluc mntr d ev cleared fda spec home use Anjelica Gerardo MD Work Phone: Start: 05-28-2024 End: 05-28-2024 Electrolyte panel Ruby Vicente APRN-FIBROUS PLASTERER Work Phone: Start: 05-28-2024 Gluc bld gluc mntr d ev cleared fda spec home use Anjelica Gerardo MD Work Phone: Start: 05-28-2024 Gluc bld gluc mntr d ev cleared fda spec home use Anjelica Gerardo MD Work Phone: Start: 05-28-2024 End: 05-28-2024 Gluc bld gluc mntr dev cleared fda spec home use Anjelica Gerardo MD Work Phone: Start: 05-28-2024 End: 05-28-2024 Gluc bld gluc mntr dev cleared fda spec home use Anjelica Gerardo MD Work Phone: Start: 05-28-2024 Gluc bld gluc mntr d ev cleared fda spec home use Anjelica Gerardo MD Work Phone: Start: 05-28-2024 Gluc bld gluc mntr d ev cleared fda spec home use Anjelica Gerardo MD Work Phone: Start: 05-28-2024 End: 05-28-2024 Electrolyte panel Ruby Vicente BISTRO ATTENDANT-FIBROUS PLASTERER Work Phone: Start: 05-28-2024 End: 05-28-2024 Gluc bld gluc mntr dev cleared fda spec home use Anjelica Gerardo MD Work Phone: Start: 05-28-2024 End: 05-28-2024 Comprehensive metabolic panel Ruby Vicente BISTRO ATTENDANT-FIBROUS PLASTERER Work Phone: Start: 05-28-2024 Gluc bld gluc mntr d ev cleared fda spec home use Anjelica Gerardo MD Work Phone: Start: 05-28-2024 End: 05-28-2024 Electrolyte panel Ruby Vicente BISTRO ATTENDANT-FIBROUS PLASTERER Work Phone: Start: 05-27-2024 End: 05-27-2024 Electrolyte panel Ruby Vicente BISTRO ATTENDANT-FIBROUS PLASTERER Work Phone: Start: 05-27-2024 End: 05-27-2024 Electrolyte panel Ruby Vicente BISTRO ATTENDANT-FIBROUS PLASTERER Work Phone: Start: 05-27-2024 End: 05-27-2024 Gluc bld gluc mntr dev cleared fda spec home use Anjelica Geradro MD Work Phone: Start: 05-27-2024 End: 05-27-2024 Electrolyte panel Ruby Vicente BISTRO ATTENDANT-FIBROUS PLASTERER Work Phone: Start: 05-27-2024 Gluc bld gluc mntr d ev cleared fda spec home use Anjelica Gerardo MD Work Phone: Start: 05-27-2024 End: 05-27-2024 Urine test visual color cmprsn meths Demetri Valenzuela DO Work Phone: Start: 05-27-2024 Drug tst prsmv instr mnt chem analyzers pr date Ruby Vicente BISTRO ATTENDANT-FIBROUS PLASTERER Work Phone: Start: 05-27-2024 Gluc bld gluc mntr d ev cleared fda spec home use Demetri Ballesteros [employer] DO Work Phone: Start: 05-27-2024 Blood gases any combination ph pco2 po2 co2 hco3 Not In System Ref Prov Start: 05-27-2024 End: 05-27-2024 Comprehensive metabolic panel Peyton Dillon BISTRO ATTENDANT-FIBROUS PLASTERER Work Phone: Start: 04-12-2024 Gluc bld gluc mntr d [...] Phone: Start: 07-03-2023 Echo tthrc r-t 2d w/wom-mode compl spec&colr d Dylon Katalina DO Work Phone: Start: 07-03-2023 Gluc bld [...] Letty Yee MD Work Phone: Start: 07-03-2023 Adult depression scr eening assessment Anjelica Gerardo MD Work Phone: Start: 07-03-2023 End: 07-03-2023 Electrolyte panel Tim Benites i, MD Work Phone: Start: 01-03-2024 Gluc bld gluc mntr d ev cleared [...] Work Phone: Start: 07-02-2023 Blood gases any combination ph pco2 po2 co2 hco3 Letty Yee MD Work Phone: Start: 07-02-2023 End: 07-02-2023 Comprehensive metabolic panel Ronal Logan MD Work Phone: Start: 08-01-2020 Assay of magnesium Divy a Tia Work Phone: Start: 08-01-2020 Assay of phosphorus inorganic Vikki Tia Work Phone: Start: 08-01-2020 Basic metabolic pane l calcium total Vikki Tia Work Phone: Start: 08-01-2020 Urine test visual color cmprsn meths Yuki Adriel Dimitris Avendanoiyala Work Phone: Start: 08-01-2020 Glucose blood reagen t strip Naomy Morse Work Phone: Start: 08-01-2020 Assay of magnesium [...] Joon Work Phone: Start: 08-01-2020 Glucose blood reagen t strip Stan Ana Work Phone: Start: 08-01-2020 Glucose blood reagen t strip Stan Ana Work Phone: Start: 08-01-2020 [...] Chela George Work Phone: Start: 07-31-2020 Hemoglobin glycosyla calin a1c Vikki Tia Work Phone: Start: 07-31-2020 Assay of magnesium [...] George Work Phone: Start: 07-31-2020 Glucose blood reagen t strip Stan Ana Work Phone: Start: 07-30-2020 Potassium serum plasma/whole blood Chela George Work Phone: Start: 07-30-2020 Glucose blood reagen t strip Stan Ana Work Phone: Start: 07-30-2020 Glucose blood reagen t strip Stan Ana Work Phone: Start: 07-30-2020 [...] Ana Work Phone: Start: 07-30-2020 Glucose blood reagen t strip Stan Ana Work Phone: Start: 07-30-2020 Assay of magnesium Krit ika George Work Phone: Start: 07-30-2020 Assay of phosphorus inorganic Chela George Work Phone: Start: 07-30-2020 Basic metabolic pane l calcium total Chela George Work Phone: Start: 07-30-2020 End: 07-30-2020 Glucose blood reagent strip Stan Ana Work Phone: Start: 07-30-2020 End: 07-30-2020 Glucose blood reagent strip Sossee Work Phone: Start: 07-30-2020 Glucose blood reagen t strip Sossee Work Phone: Start: 07-30-2020 Assay of magnesium Krit ika George Work Phone: Start: 07-30-2020 Assay of phosphorus inorganic Chela Vazquez Work Phone: Start: 07-30-2020 Basic metabolic pane l calcium total Chela Vazquez Work Phone: Start: 07-30-2020 Ecg routine ecg w/le ast 12 lds w/i&r Chela Vazquez Work Phone: Start: 07-30-2020 EKG REPORT Hpf Scanni ng Start: 07-30-2020 Blood count complete auto&auto difrntl wbc Chela Vazquez Work Phone: Start: 07-30-2020 SPECIMEN REJECTION [facility]k at [facility] Work Phone: Start: 07-30-2020 End: 07-30-2020 Glucose blood reagent strip Sossee Work Phone: Start: 07-30-2020 TOX SCR, COMPLETE BL Ve nkat [facility] Work Phone: Start: 07-30-2020 End: 07-30-2020 Glucose blood reagent strip Sossee Work Phone: Start: 07-30-2020 ARTERIAL BLOOD GAS, POC Sossee Work Phone: Start: 07-30-2020 Glucose blood reagen t strip Sossee Work Phone: Start: 07-30-2020 Assay of acetaminophen Chela Corteza Work Phone: Start: 07-30-2020 Assay of ethanol Kritik a George Work Phone: Start: 07-30-2020 Assay of lipase Chela George Work Phone: Start: 07-30-2020 Assay of magnesium Krit ika George Work Phone: Start: 07-30-2020 Assay of phosphorus inorganic Chela George Work Phone: Start: 07-30-2020 Assay of salicylate Kri lloyd George Work Phone: Start: 07-30-2020 Assay of thyroid stimulating hormone tsh Chela George Work Phone: Start: 07-30-2020 Basic metabolic pane l calcium total Chela George Work Phone: Start: 07-30-2020 Hepatic function panel Chela George Work Phone: Start: 07-30-2020 TOXIC TRICYCLIC SC,B Kr itika George Work Phone: Start: 07-30-2020 Glucose blood reagen t strip Stan Ana Work Phone: Start: 07-30-2020 [...] Radiologic exam ches t single view Chela Vazquez Work Phone: Start: 07-30-2020 End: 07-30-2020 Glucose blood reagent strip Stan [employer] Work Phone: Start: 07-30-2020 Potassium serum plasma/whole blood Chela Vazquez Work Phone: Start: 07-30-2020 End: 07-30-2020 ARTERIAL BLOOD GAS, POC Stan Ana Work Phone: Start: 07-30-2020 End: 07-30-2020 Gluc bld gluc mntr dev cleared fda spec home use Stan [employer] Work Phone: Start: 07-30-2020 End: 07-30-2020 LACTIC ACID,POINT OF CARE Stan [employer] Work Phone: Start: 07-30-2020 Glucose blood reagen t strip Sossee Work Phone: Start: 07-29-2020 ANION GAP (CALC) POC Vi Harriatri Work Phone: Start: 07-29-2020 ARTERIAL BLOOD GAS, POC Stan Ana Work Phone: Start: 07-29-2020 Blood count hemoglobin Stan [employer] Work Phone: Start: 07-29-2020 CALCIUM, IONIC (POC) Vi nod Ana Work Phone: Start: 07-29-2020 Chloride [Moles/Vol] Vi nod Ana Work Phone: Start: 07-29-2020 CREATININE W/GFR POI NT OF CARE Stan [employer] Work Phone: Start: 07-29-2020 Gluc bld gluc mntr d ev cleared fda spec home use Stan [employer] Work Phone: Start: 07-29-2020 LACTIC ACID,POINT OF CARE Stan [employer] Work Phone: Start: 07-29-2020 Potassium [Moles/Vol] V krystian Villai Work Phone: Start: 07-29-2020 Sodium [Moles/Vol] Kaideno d Ana Work Phone: Start: 07-29-2020 Assay of magnesium Krit ika George Work Phone: Start: 07-29-2020 Assay of phosphorus inorganic Chela George Work Phone: Start: 07-29-2020 Basic metabolic pane l calcium total Chela George Work Phone: Start: 07-29-2020 End: 07-29-2020 Glucose blood reagent strip Stan Moralesatri Work Phone: Start: 07-29-2020 MRSA BY PCR Stan banda Work Phone: Start: 07-29-2020 Assay of lactate Kritik a George Work Phone: Start: 07-29-2020 Blood gases any combination ph pco2 po2 co2 hco3 Chela George Work Phone: Start: 07-29-2020 Assay of magnesium Krit ika George Work Phone: Start: 07-29-2020 Assay of phosphorus inorganic Chela George Work Phone: Start: 07-29-2020 Basic metabolic pane l calcium total Chela George Work Phone: Start: 07-29-2020 Blood count complete auto&auto difrntl wbc Chela George Work Phone: Start: 07-29-2020 Drug screen class list a Chela George Work Phone: Start: 07-29-2020 Urinalysis microscop ic only Chela George Work Phone: Start: 07-29-2020 Urnls dip stick/tabl et rgnt auto w/o microscopy Chela George Work Phone: Start: 07-29-2020 End: 07-30-2020 Glucose blood reagent strip Stan Perez Work Phone: Start: 06-10-2020 Glucose [Mass/volume ] in Blood Cam Michael Wasserman Work Phone: Start: 06-10-2020 Glucose [Mass/volume ] in Blood A.Refatouier Magsombol Nohay Work Phone: Start: 06-10-2020 Glucose [Mass/volume ] in Blood A.Refatouier Magsombol Nohay Work Phone: Start: 06-10-2020 Comprehensive metabo lic 2000 panel - Serum or Plasma A.Arcadio Magsombol Nohay Work Phone: Start: 06-10-2020 Phosphate [Mass/volu me] in Serum or Plasma A.Arcadio Magsombol Nohay Work Phone: Start: 06-09-2020 Glucose [Mass/volume ] in Blood A.Raziaier Magsombol Nohay Work Phone: Start: 06-09-2020 Urinalysis A.Arcadio Magsombol Nohay Work Phone: Start: 06-09-2020 Glucose [Mass/volume ] in Blood A.Arcadio Magsombol Nohay Work Phone: Start: 06-09-2020 Potassium [Moles/vol ume] in Serum or Plasma A.Arcadio Magsombol Nohay Work Phone: Start: 06-09-2020 Glucose [Mass/volume ] in Blood A.Refatouier Magsombol Nohay Work Phone: Start: 06-09-2020 Glucose [Mass/volume ] in Blood A.Raziaier Magsombol Nohay Work Phone: Start: 06-09-2020 Incentive spirometry A. Raziaier Magsombol Nohay Work Phone: Start: 06-09-2020 Comprehensive metabo lic 2000 panel - Serum or Plasma Binh Felixmbol Nolovey Work Phone: Start: 06-09-2020 Magnesium [Mass/volu me] in Serum or Plasma Binh Pinasombol Nohay Work Phone: Start: 06-09-2020 Phosphate [Mass/volu me] in Serum or Plasma Binh Pinasombol Nohay Work Phone: Start: 06-09-2020 Complete blood count with white cell differential, automated Binh Felixmbol Nohay Work Phone: Start: 06-09-2020 Complete blood count with white cell differential, manual Binh Felixmbol Nohay Work Phone: Start: 06-09-2020 Glucose [Mass/volume ] in Blood Binh Felixmbol Nohay Work Phone: Start: 06-08-2020 Glucose [Mass/volume ] in Blood Favian.Arcadio Pinasombol Nohay Work Phone: Start: 06-08-2020 Radiologic exam ches t single view Binh Felixmbol Nol[employer]y Work Phone: Start: 06-08-2020 Glucose [Mass/volume ] in Blood Binh Felixmbol Nol[employer]y Work Phone: Start: 06-08-2020 Basic metabolic 2000 panel - Serum or Plasma Binh Felixmbol Nohay Work Phone: Start: 06-08-2020 Incentive spirometry Rekha Felixmbol Nolovey Work Phone: Start: 06-08-2020 VIBRATORY PEP THERAPY Favian Felixmbol Nohay Work Phone: Start: 06-08-2020 Glucose [Mass/volume ] in Blood Binh Pinasombol Nohay Work Phone: Start: 06-08-2020 Basic metabolic 2000 panel - Serum or Plasma A.Arcadio Magsombol Nohay Work Phone: Start: 06-08-2020 Glucose [Mass/volume ] in Blood A.Arcadio Magsombol Nohay Work Phone: Start: 06-08-2020 Basic metabolic 2000 panel - Serum or Plasma A.Arcadio Magsombol Nohay Work Phone: Start: 06-08-2020 Glucose [Mass/volume ] in Blood A.Arcadio Magsombol Nohay Work Phone: Start: 06-08-2020 End: 06-08-2020 Glucose [Mass/volume] in Blood A.Arcadio Magsombol Nohay Work Phone: Start: 06-08-2020 Glucose [Mass/volume ] in Blood A.Arcadio Pinasombol Nohay Work Phone: Start: 06-08-2020 Beta hydroxybutyrate [Moles/volume] in Serum or Plasma A.Arcadio Magsombol Nohay Work Phone: Start: 06-08-2020 Comprehensive metabo lic 2000 panel - Serum or Plasma A.Arcadio Magsombol Nohay Work Phone: Start: 06-08-2020 Iron measurement A.Stephen ferrer Magsombol Nohay Work Phone: Start: 06-08-2020 Glucose [Mass/volume ] in Blood A.Arcadio Magsombol Nohay Work Phone: Start: 06-08-2020 End: 06-08-2020 Glucose [Mass/volume] in Blood A.Arcadio Magsombol Nohay Work Phone: Start: 06-08-2020 Beta hydroxybutyrate [Moles/volume] in Serum or Plasma A.Arcadio Magsombol Nohay Work Phone: Start: 06-08-2020 Complete blood count with white cell differential, automated Favian.Arcadio Chandler Nolovey Work Phone: Start: 06-08-2020 Complete blood count with white cell differential, manual Favian.Arcadio Chandler Nodavid Work Phone: Start: 06-08-2020 Comprehensive metabo lic 2000 panel - Serum or Plasma A.Arcadio Perkinsol Nolovey Work Phone: Start: 06-08-2020 Magnesium [Mass/volu me] in Serum or Plasma A.Arcadio Pinasobeatrizol Nohay Work Phone: Start: 06-08-2020 Phosphate [Mass/volu me] in Serum or Plasma A.Arcadio Pinasombol Nolovey Work Phone: Start: 06-08-2020 Glucose [Mass/volume ] in Blood A.Arcadio Felixmbol Nolovey Work Phone: Start: 06-08-2020 Glucose [Mass/volume ] in Blood A.Arcadio Pinasombol Nolovey Work Phone: Start: 06-08-2020 End: 06-08-2020 Glucose [Mass/volume] in Blood A.Arcadio Felixmbol Nolovey Work Phone: Start: 06-07-2020 Comprehensive metabo lic 2000 panel - Serum or Plasma A.Arcadio Perkinsol Nolovey Work Phone: Start: 06-07-2020 Glucose [Mass/volume ] in Blood A.Arcadio Pinasombol Nolovey Work Phone: Start: 06-07-2020 End: 06-07-2020 Glucose [Mass/volume] in Blood A.Arcadio Pinasombol Nohay Work Phone: Start: 06-07-2020 Glucose [Mass/volume ] in Blood A.Arcadio Pinasombol Nolovey Work Phone: Start: 06-07-2020 Basic metabolic 2000 panel - Serum or Plasma Binh Chandler Nodavid Work Phone: Start: 06-07-2020 Beta hydroxybutyrate [Moles/volume] in Serum or Plasma Binh Chandler Nodavid Work Phone: Start: 06-07-2020 Hemoglobin A1c/Hemoglobin.total in Blood Favian.Arcadio Virk Work Phone: Start: 06-07-2020 End: 06-07-2020 Glucose [Mass/volume] in Blood A.Arcadio Chandler Nodavid Work Phone: Start: 06-07-2020 Glucose [Mass/volume ] in Blood A.Arcadio Virk Work Phone: Start: 06-07-2020 Glucose [Mass/volume ] in Blood A.Arcadio Virk Work Phone: Start: 06-07-2020 End: 06-07-2020 Glucose [Mass/volume] in Blood A.Arcadio Chandler Nodavid Work Phone: Start: 06-07-2020 Beta hydroxybutyrate [Moles/volume] in Serum or Plasma Binh Virk Work Phone: Start: 06-07-2020 Comprehensive metabo lic 2000 panel - Serum or Plasma Binh Chandler Nodavid Work Phone: Start: 06-07-2020 Magnesium [Mass/volu me] in Serum or Plasma Binh Felixmbol Nolovey Work Phone: Start: 06-07-2020 Phosphate [Mass/volu me] in Serum or Plasma Binh Felixmbol Nolovey Work Phone: Start: 06-07-2020 Thyrotropin [Units/v olume] in Serum or Plasma by Detection limit <= 0.005 mIU/L A.Reignier Magsombol Nohay Work Phone: Start: 06-07-2020 Glucose [Mass/volume ] in Blood Binh Pinasombol Nohay Work Phone: Start: 06-07-2020 Complete blood count with white cell differential, automated Binh Pinasombol Nohay Work Phone: Start: 06-07-2020 Complete blood count with white cell differential, manual Binh Pinasombol Nolovey Work Phone: Start: 06-07-2020 Glucose [Mass/volume ] in Blood Goitom Andom Asgedom Work Phone: Start: 08-05-2018 Microalbumin [Mass/v olume] in Urine by Test strip Goitom Asgedom Plan of Treatment Date Care Activity Detail Author Start: 02-17-2028 Screening for malignant neoplasm of cervix Pap Smear [facility] Start: 02-16-2026 Adult BMI Screening Adult BMI Screening [facility] Start: 02-16-2026 Tobacco Screening Tobacco Screening [facility] Start: 02-15-2026 Depression Screening Depression Screening [facility] Start: 01-25-2026 Tobacco Screening Tobacco Screening [facility] Start: 01-18-2026 Adult BMI Screening Adult BMI Screening [facility] Start: 01-18-2026 Tobacco Screening Tobacco Screening [facility] Start: 05-27-2025 Adult BMI Screening Adult BMI Screening [facility] Start: 05-27-2025 Tobacco Screening Tobacco Screening [facility] Start: 04-20-2025 Hemoglobin A1c measurement Diabetes: Hemoglobin A1C [facility] Start: 03-16-2025 End: 03-16-2025 Patient encounter procedure [facility] Start: 03-15-2025 End: 03-15-2025 Patient encounter procedure 03/15/2025 10:00 AM EDT Routine [facility] [address] [place] [address] Kori Nolasco DO [address] [place] [address] [facility] Start: 02-28-2025 Influenza vaccination [facility] Start: 02-16-2025 End: 02-16-2025 ambulatory 02/16/2025 10:00 AM EDT Initial [facility] [address] [place] [address] Fam Smart, BISTRO ATTENDANT-[place] [id number] [facility] [place] [address] [facility] Start: 02-07-2025 End: 02-07-2025 ambulatory 02/07/2025 3:00 PM EDT Initial [facility] [address] [place] [address] Gia Cross MD [address] [place], [place] [id number] [facility] Start: 01-25-2025 End: 01-25-2026 US MFM with or without consult US MFM with or without consult Imaging STAT Type 1 diabetes mellitus complicating in first trimester, antepartum Expected: 01/25/2025, Expires: 01/25/2026 [facility] Work Phone: Comment on above: Expected: 01/25/2025, Expires: Start: 01-24-2025 End: 01-24-2025 Patient encounter procedure 01/24/2025 2:30 PM EDT Appointment [facility] - Ultrasound [address] [place] [address] [facility] Start: 01-18-2025 End: 01-18-2025 Patient encounter procedure 01/18/2025 2:30 PM EDT Office Visit [facility] [address] [place] [id number] Felisa Galloway MD [address] [place] [address] [facility] Start: 01-18-2025 End: 01-18-2026 US transvaginal for Ultrasound less than 14 weeks with transvaginal Imaging Routine care, first trimester Expected: 01/18/2025, Expires: 01/18/2026 [facility] Work Phone: Comment on above: Expected: 01/18/2025, Expires: Start: 01-09-2025 Hemoglobin A1c measurement Diabetes: Hemoglobin A1C [facility] Start: 10-11-2024 Hemoglobin A1c measurement Diabetes: Hemoglobin A1C [facility] Start: 10-11-2024 End: 10-11-2024 Patient encounter procedure 10/11/2024 11:20 AM EDT Office Visit [facility] [address] [place] [address] Felisa Galloway MD [address] [place] [address] [facility] Start: 07-12-2024 End: 07-12-2024 Patient encounter procedure [facility] Comment on above: Arrived Start: 07-03-2024 Depression Screening Depression Screening [facility] Start: 05-13-2024 End: 05-13-2024 Patient encounter procedure 05/13/2024 11:00 AM EST Office Visit [facility] [address] [place] [phone] Kendal Sommers, DPM [address] [place], [place] [id number] [facility] Start: 04-12-2024 End: 04-12-2025 25-hydroxyvitamin D3 [Mass/volume] in Serum or Plasma Vitamin D 25 hydroxy Total Lab Routine Type 1 diabetes mellitus with hyperglycemia (HCC) ([facility]/HCC) Expected: 04/12/2024 (Approximate), Expires: 04/12/2025 [facility] Comment on above: Expected: 04/12/2024 (Approximate), Expi res: 04/12/2025 Start: 04-12-2024 End: 04-12-2025 C-peptide C-peptide Lab Routine Type 1 diabetes mellitus with hyperglycemia (HCC) ([facility]/HCC) Expected: 04/12/2024 (Approximate), Expires: 04/12/2025 [facility] Work Phone: Comment on above: Expected: 04/12/2024 (Approximate), Expi res: 04/12/2025 Start: 04-12-2024 End: 04-12-2025 Lipid 1996 panel - Serum or Plasma Lipid panel Lab Routine Type 1 diabetes mellitus with hyperglycemia (HCC) ([facility]/HCC) Expected: 04/12/2024 (Approximate), Expires: 04/12/2025 [facility] Comment on above: Expected: 04/12/2024 (Approximate), Expi res: 04/12/2025 Start: 04-12-2024 End: 04-12-2025 Microalbumin/Creatinine panel in random Urine Microalbumin / creatinine urine ratio Lab Routine Type 1 diabetes mellitus with hyperglycemia (HCC) ([facility]) Expected: 04/12/2024 (Approximate), Expires: 04/12/2025 [facility] Comment on above: Expected: 04/12/2024 (Approximate), Expi res: 04/12/2025 Start: 04-12-2024 End: 04-12-2025 Renal function panel Renal function panel Lab Routine Type 1 diabetes mellitus with hyperglycemia (HCC) ([facility]/HCC) Expected: 04/12/2024 (Approximate), Expires: 04/12/2025 [facility] Comment on above: Expected: 04/12/2024 (Approximate), Expi res: 04/12/2025 Start: 04-12-2024 End: 04-12-2024 Patient encounter procedure [facility] Comment on above: Type 1 diabetes mellitus with hyperglyce justin (HCC) ([facility]) Start: 04-02-2024 End: 04-02-2024 Patient encounter procedure 04/02/2024 11:00 AM EDT Office Visit [facility] [address] [place] [phone] Kendal Sommers, DPM [address] [place] [address] Fracture of unspecified metatarsal bone(s), unspecified foot, initial encounter for closed fracture [facility] Comment on above: Fracture of unspecified metatarsal bone( s), unspecified foot, initial encounter for closed fracture Start: 02-29-2024 Influenza vaccination [facility] Start: 12-31-2023 Hemoglobin A1c measurement Diabetes: Hemoglobin A1C [facility] Start: 2023 Screening for malignant neoplasm of cervix [facility] Start: 12-06-2020 HbA1c (Bld) [Mass fraction] A1C [facility] Start: 10-28-2020 HbA1c (Bld) [Mass fraction] A1C test (Diabetic or Prediabetic) [place], [place] Start: 02-29-2020 Influenza vaccination Flu vaccine (#1) [place], [place] Start: 02-29-2020 Influenza vaccination given Sequential Influenza Vaccine (#1) [facility] Start: 08-05-2019 Albumin DL <= 20 mg/L (U) [Mass/Vol] Urine Microalbumin [facility] Start: 08-05-2019 Urine screening for protein [facility] Start: 2014 Screening for malignant neoplasm of cervix [facility] Start: 2012 DTaP,Tdap and Td Vaccines (1 - Tdap) DTaP,Tdap and Td Vaccines (1 - Tdap) [facility] Start: 2012 DTaP/Tdap/Td vaccine (1 - Tdap) DTaP/Tdap/Td vaccine (1 - Tdap) [place], [place] Start: 2011 Adult BMI Follow Up Plan Adult BMI Follow Up Plan [facility] Start: 2011 Diabetic foot examination Diabetic Foot Exam [facility] Start: 2011 Diabetic microalbuminuria test Diabetic microalbuminuria test [place], [place] Start: 2011 Hepatitis C antibody, confirmatory test Hepatitis C Screening [facility] Start: 2008 [facility] Start: 2005 Adolescent depression screening assessment Depression Screening (PHQ9) [facility] Start: 2003 Diabetic foot examination [facility] Start: 2003 Diabetic retinal exam Diabetic retinal exam [place], [place] Start: 2003 Glaucoma screening Diabetes: Retinopathy Screening [facility] Start: 2003 Lipid panel Lipid screen [place], [place] Start: 2003 Ophthalmic examination and evaluation Ophthalmology Exam [facility] Start: 1996 History and physical examination, annual for health maintenance Wellness Visit [facility] Start: 1994 Varicella vaccine (1 of 2 - 2-dose childhood series) Varicella vaccine (1 of 2 - 2-dose childhood series) [place], [place] Start: 1993 Glaucoma screening Diabetic Ophthalmology Exam [facility] Start: 1993 Hepatitis C screening Hepatitis C screen [place], [place] Start: 1993 Screening for malignant neoplasm of cervix Pap Smear [facility] Start: 1993 Tetanus vaccination Tetanus: Every 10yrs [facility] Start: 1993 Tobacco Counseling Tobacco Counseling [facility] End: 05-29-2024 Bacteria identified in Urine by Culture [facility] Comment on above: STAT for 1 Occurrences starting 05/29/20 24 until 05/29/2024 End: 01-18-2026 Bacteria identified in Urine by Culture Urine culture Microbiology Routine care, first trimester 1 Occurrences starting 01/18/2025 until 01/18/2026 [facility] Comment on above: 1 Occurrences starting 01/18/2025 until 01/18/2026 Bacteria identified in Urine by Culture Urine Culture Microbiology Routine care, subsequent in first trimester Urinary tract infection in mother during first trimester of 02/16/2025 12:04 PM EDT [facility] End: 08-05-2020 Basic metabolic 2000 panel Basic Metabolic Panel Lab Timed Every 4 Hours (Lab) for 25 Occurrences starting 08/01/2020 until 08/05/2020, 2 completed [place] Comment on above: Every 4 Hours (Lab) for 25 Occurrences s tarting 08/01/2020 until 08/05/2020, 2 completed Bedside Glucose *Place/Obtain serum glucose if >500(>600 MRH) per glucometer. Bedside Glucose *Place/Obtain serum glucose if >500(>600 MRH) per glucometer. Point of Care Testing Routine 4X Daily (AC and at bedtime) until discontinued starting 05/29/2024, 4 completed [facility] Comment on above: 4X Daily (AC and at bedtime) until disco ntinued starting 05/29/2024, 4 completed End: 01-19-2026 CBC panel - Blood by Automated count CBC without diff Lab Routine care, first trimester 1 Occurrences starting 01/18/2025 until 01/19/2026 [facility] Comment on above: 1 Occurrences starting 01/18/2025 until 01/19/2026 CBC W Auto Different ial panel - Blood CBC auto differential Lab Routine Lab max of 3 days, Daily, for lab use only until discontinued starting 05/28/2024, 3 completed [facility] Comment on above: Lab max of 3 days, Daily, for lab use on ly until discontinued starting 05/28/2024, 3 completed CBC WITH AUTO DIFFERENTIAL CBC WITH AUTO DIFFERENTIAL Lab Routine Daily until discontinued starting 08/02/2020 [facility]: Daily until discontinued starting 2020 Comprehensive metabo lic 2000 panel - Serum or Plasma Comprehensive metabolic panel Lab Routine Lab max of 3 days, Daily, for lab use only until discontinued starting 05/28/2024, 3 completed [facility] Comment on above: Lab max of 3 days, Daily, for lab use on ly until discontinued starting 05/28/2024, 3 completed End: 01-18-2026 Comprehensive metabolic 2000 panel - Serum or Plasma Comprehensive metabolic panel Lab Routine care, first trimester History of gestational hypertension 1 Occurrences starting 01/18/2025 until 01/18/2026 [facility] Comment on above: 1 Occurrences starting 01/18/2025 until 01/18/2026 Culture, Blood 1 [facility] [place] End: 01-18-2026 Drug Screen, Urine Drug Screen, Urine Lab Routine care, first trimester 1 Occurrences starting 01/18/2025 until 01/18/[address] [facility] on above: 1 Occurrences starting 01/18/2025 until 01/18/2026 End: 07-30-2020 Drugs of abuse 9 serum w/ reflex Drugs of abuse 9 serum w/ reflex Lab Routine Once for 1 Occurrences starting 07/30/2020 until 07/30/2020 [facility] AN[facility]ONY Comment on above: Once for 1 Occurrences starting 07/30/19 until 07/30/2020 Drugs of abuse 9 ser um w/ reflex Drugs of abuse 9 serum w/ reflex Lab Routine 07/30/2020 12:02 PM EST [facility] End: 01-18-2026 hCG, quantitative, hCG, quantitative, Lab Routine care, first trimester 1 Occurrences starting 01/18/2025 until 01/18/[address] [facility] Comment on above: 1 Occurrences starting 01/18/2025 until 01/18/2026 End: 01-18-2026 Hemoglobin A1c/Hemoglobin.total in Blood Hemoglobin A1c Lab Routine care, first trimester Pre-existing type 1 diabetes mellitus during in first trimester 1 Occurrences starting 01/18/2025 until 01/18/[address] [facility] Comment on above: 1 Occurrences starting 01/18/2025 until 01/18/2026 End: 01-18-2026 Hepatitis panel, acute Hepatitis panel, acute Lab Routine care, first trimester 1 Occurrences starting 01/18/2025 until 01/18/[address] [facility] Comment on above: 1 Occurrences starting 01/18/2025 until 01/18/2026 End: 01-18-2026 HIV 1+2 Ab+HIV1 p24 Ag [Presence] in Serum or Plasma by Immunoassay HIV 1&2 AB/AG Screen (P24 AG) Lab Routine care, first trimester 1 Occurrences starting 01/18/2025 until 01/18/[address] [facility] Comment on above: 1 Occurrences starting 01/18/2025 until 01/18/2026 End: 08-05-2020 Magnesium [Mass/Vol] Magnesium Lab Timed Every 4 Hours (Lab) for 25 Occurrences starting 08/01/2020 until 08/05/2020, 2 completed [facility] Comment on above: Every 4 Hours (Lab) for 25 Occurrences s tarting 08/01/2020 until 08/05/2020, 2 completed End: 07-03-2023 Magnesium [Mass/volume] in Serum or Plasma Magnesium Lab Routine Once for 1 Occurrences starting 07/03/2023 until 07/03/2023 [facility] Work Phone: Comment on above: Once for 1 Occurrences starting 07/03/19 24 until 07/03/2023 Magnesium [Mass/volu me] in Serum or Plasma Magnesium Lab Routine Lab max of 3 days, Daily, for lab use only until discontinued starting 05/28/2024, 3 completed [facility] Comment on above: Lab max of 3 days, Daily, for lab use on ly until discontinued starting 05/28/2024, 3 completed Oxygen Therapy - Maintain SpO2: 90%; *FLIGHT OPERATIONS SPECIALIST Guidelines for O2: Yes; Document: [email or web address]\epi c\EPIC_Reference\Orders\ Respiratory Care Guidelines\CPG Oxygen 2022.pdf Oxygen Therapy - Maintain SpO2: 90%; *FLIGHT OPERATIONS SPECIALIST Guidelines for O2: Yes; Document: [email or web address]\epi c\EPIC_Reference\Orders\ Respiratory Care Guidelines\CPG Oxygen 2022.pdf Respiratory Care Routine As Needed until discontinued starting 05/27/2024 [employer] Work Phone: Comment on above: As Needed until discontinued starting Oxygen therapy [[facility] Data Set] Initiate Oxygen Therapy Protocol Respiratory Care Routine Daily until discontinued starting 07/29/2020 [employer] Comment on above: Daily until discontinued starting 2020 End: 08-05-2020 Phosphate [Mass/Vol] Phosphorus Lab Timed Every 4 Hours (Lab) for 25 Occurrences starting 08/01/2020 until 08/05/2020, 2 completed [employer] [place], [employer] Comment on above: Every 4 Hours (Lab) for 25 Occurrences s tarting 08/01/2020 until 08/05/2020, 2 completed POCT glucose [facility] [place] Comment on above: 4X Daily (AC & HS) until discontinued st arting 07/31/2020 As Needed until disc ontinued starting 07/31/2020 End: 09-08-2020 POCT Glucose - every hour POCT Glucose - every hour Point of Care Testing Timed Every Hour (Lab) for 980 Occurrences starting 07/30/2020 until 09/08/2020 [employer], [facility] Comment on above: Every Hour (Lab) for 980 Occurrences sta rting 07/30/2020 until 09/08/2020 End: 07-30-2020 PREVIOUS SPECIMEN PREVIOUS SPECIMEN Lab Routine Once for 1 Occurrences starting 07/30/2020 until 07/30/2020 [place] Comment on above: Once for 1 Occurrences starting 07/30/19 21 until 07/30/2020 PREVIOUS SPECIMEN PREVIOUS SPECI MEN Lab Routine 07/30/2020 12:02 PM [facility] ANTHONY End: 01-18-2026 Rubella antibody, IgG Rubella antibody, IgG Lab Routine care, first trimester 1 Occurrences starting 01/18/2025 until 01/18/2026 [facility] Comment on above: 1 Occurrences starting 01/18/2025 until 01/18/2026 Thin Prep Pap Test Thin Prep Pap Test Pathology and Cytology Routine Pap smear for cervical cancer screening care, subsequent in first trimester 02/16/2025 12:04 PM EDT [facility] Work Phone: TOX SCR, COMPLETE BL TOX SCR, CO MPLETE BL Lab Add-On 07/30/2020 10:11 AM [place], [place] End: 01-18-2026 Treponema pallidum IgG+IgM Ab [Presence] in Serum by Immunoassay Syphilis Total(Unknown Syphilis Status) Lab Routine care, first trimester 1 Occurrences starting 01/18/2025 until 01/18/2026 [facility] Comment on above: 1 Occurrences starting 01/18/2025 until 01/18/2026 End: 01-18-2026 Type and screen Type and screen Blood Bank Routine care, first trimester 1 Occurrences starting 01/18/2025 until 01/18/2026 [facility] Comment on above: 1 Occurrences starting 01/18/2025 until 01/18/2026 End: 01-18-2026 Urate [Mass/volume] in Serum or Plasma Uric acid Lab Routine care, first trimester History of gestational hypertension 1 Occurrences starting 01/18/2025 until 01/18/2026 [facility] Comment on above: 1 Occurrences starting 01/18/2025 until 01/18/2026 End: 01-18-2026 Urinalysis Urinalysis Lab Routine care, first trimester 1 Occurrences starting 01/18/2025 until 01/18/2026 [facility] Comment on above: 1 Occurrences starting 01/18/2025 until 01/18/2026 End: 01-18-2026 Urine protein creatinine ratio Urine protein creatinine ratio Lab Routine care, first trimester History of gestational hypertension 1 Occurrences starting 01/18/2025 until 01/18/[address] [facility] Comment on above: 1 Occurrences starting 01/18/2025 until 01/18/2026 End: 01-18-2026 Varicella zoster antibody, IgG Varicella zoster antibody, IgG Lab Routine care, first trimester 1 Occurrences starting 01/18/2025 until 01/18/2026 [email or web address] Comment on above: 1 Occurrences starting 01/18/2025 until 01/18/2026 Payers Date Payer Category Payer Medicaid (Managed Care) [employer] [id number] 2023 Unknown [id number] 2015 Medicaid [id number] 2015 Medicaid HMO [employer] [id number] 2015 Unknown [place] [employer] [id number] 2015-Present [id number]. [id number] 1993 Unknown [id number] 2.16.840.1.523604.3.579.2. 647 1993 Unknown [id number] 2.16.840.1.128903.3.579.2. 903 1993 Unknown [id number] 2.16.840.1.875623.3.579.2. 593 1993 Unknown [id number] 2.16.840.1.498115.3.579.2. 593 1993 Unknown [id number] 2.16.840.1.873336.3.579.2. 593 1993 Unknown [id number] 2.16.840.1.924279.3.579.2. 593 1993 Unknown [id number] 2.16.840.1.483054.3.579.2. 175 1993 Unknown [id number] 2.16.840.1.470381.3.579.2. 1286 1993 Unknown [id number] 2.16.840.1.472889.3.579.2. 1286 1993 Unknown [id number] 2.16.840.1.253801.3.579.2. 1286 1993 Unknown [id number] 2.16.840.1.126185.3.579.2. 718 1993 Unknown [id number] 2.16.840.1.143125.3.579.2. 718 1993 Unknown [id number] 2.16.840.1.523883.3.579.2. 718 1993 Unknown [id number] 2.16.840.1.069466.3.579.2. 718 1993 Unknown [id number] 2.16.840.1.218409.3.579.2. 718 1993 Unknown [id number] 2.16.840.1.413380.3.579.2. 718 1993 Unknown [id number] 2.16.840.1.865185.3.579.2. 718 1993 Unknown [id number] 2.16.840.1.511027.3.579.2. 1259 1993 Unknown [id number] 2.16.840.1.807766.3.579.2. 1259 1993 Unknown [id number] 2.16.840.1.820692.3.579.2. 1259 1993 Unknown [id number] 2.16.840.1.985040.3.579.2. 1259 1993 Unknown [id number] 2.16.840.1.896729.3.579.2. 1259 1993 Unknown [id number] 2.16.840.1.560163.3.579.2. 1286 1993 Unknown [id number] 2.16.840.1.578951.3.579.2. 1286 1993 Unknown [id number] 2.16.840.1.808207.3.579.2. 1286 1993 Unknown [id number] 2.16.840.1.258880.3.579.2. 1286 1993 Unknown [id number] 2.16.840.1.974374.3.579.2. 1286 1993 Unknown [id number] 2.16.840.1.343798.3.579.2. 1286 1993 Unknown [id number] 2.16.840.1.711336.3.579.2. 1286 1959 Self-pay 1959 Unknown [id number] Unknown Unknown [id number] 2.16.840.1.058336.3.579.2. 531 Social History Date Type Detail Facility Tobacco smoking stat us WVIS Unknown if ever smoked [facility] Start: 1993 Sex Assigned At Not on file [facility] Exposure to SARS-CoV -2 (event) Not sure [facility] Start: 03-30-2024 Tobacco smoking status NHIS Ex-smoker [facility] History of tobacco use Current smoker [facility] History of tobacco use Cigarette Smoker P [facility] Start: 06-15-2022 End: 03-30-2024 Cigarettes smoked current (pack per day) - Reported 0.5 [facility] Start: 06-15-2022 End: 10-02-2023 Tobacco use panel [facility] Start: 1995 Sex assigned at Female [facility] Start: 05-24-2023 Gender identity Identifies as female gender (finding) [facility] Start: 05-24-2023 Sexual orientation Heterosexual (finding) [facility] Start: 07-03-2023 Tobacco smoking status WVIS Smokes tobacco daily [facility] Start: 07-03-2023 Tobacco use and exposure Smokeless tobacco non-user [facility] Start: 07-04-2023 End: 02-16-2025 Alcohol intake Current non-drinker of alcohol (finding) [facility] Do you belong to any clubs or organizations such as moravian groups, unions, fraternal or athletic groups, or school groups? No [facility] Are you now , , , [...] - these days [OSQ] Not at all [facility] Start: 07-03-2023 Tobacco Comment hasn't smoked in 1 week, one cig per day [facility] Start: 02-02-2015 Sex Female (finding) [facility] Start: 12-11-2024 [facility] Goals Date Patient Goal Desired Activity /State Personal health goal Comment on above: Formatting of this n ote might be different from the original. Evaluation of progress towards goal: safe transition from hospital to home with family support. Personal health goal Comment on above: Formatting of this n ote might be different from the original. Evaluation of progress towards goal: not feeling better yet, encouraged pt to follow Clinical Notes 05-30-2023 to 02-23-2025 Jennifer Cardona RN - 02/23/2025 3:51 PM EDTTelephone Encounter - Maye Arias MA - 02/18/2025 3:33 PM EDTTelephone Encounter - Maye Arias MA - 02/18/2025 3:33 PM EDT Note Date & Type Note Facility 02-23-2025 History of Present illness Narrative LMOM requesting return call to schedule diabetic education and consult with regina Howell 03/03. documented in this encounter [facility] 02-18-2025 Miscellaneous Notes Called patient and informed of information. Patient voiced understanding. Rescheduled patient to be seen 03/15/[address] Nolasco. - Maye Arias MA 02/21/25 10:41 AM documented in this encounter [facility] 02-18-2025 Telephone encounter Note Called patient and informed of information. Patient voiced understanding. Rescheduled patient to be seen 03/15/[address] Nolasco. Rebel Arias MA 02/21/25 10:41 AM [facility] 02-16-2025 Miscellaneous Notes 02/16/2025 - ASSOCIATE PROGRAM MANAGER REFERRAL FAM SMART-HISTORY OF CA-PHONED PT AND LM ON VM TO CALL OFFICE TO SCHEDULE ASSOCIATE PROGRAM MANAGER APPT. JSL documented in this encounter [email or web address] 02-16-2025 Telephone encounter Note 02/16/2025 - ASSOCIATE PROGRAM MANAGER REFERRAL FAM SMART-HISTORY OF CA-PHONED PT AND LM ON TO CALL OFFICE TO SCHEDULE ASSOCIATE PROGRAM MANAGER APPT. JSL [email or web address] 02-16-2025 History of Present illness Narrative 29 y.o. at 9w2d. No CTX, VB, LOF. Pt. Accompanied by her son and daughter. 1. Reviewed labs WNL 2. Reviewed CNM practice w/physician coverage. Discussed high risk and advised she will see doctors mostly for visits 3. 1st trimester reviewed and WNL 4. Reviewed toxoplasmosis and listeriosis precautions 5. PAP and GC/CT cultures collected 6. Cardiology consult placed for Hx. Of CA approx. 5yr. ago and pt. Currently now 7. Nausea and vomiting is decreasing w/zofran. It occurs 1-2/day and last occurrence was yesterday morning 8. TIDM: CGM in situ to upper arm. Discussed f/u w/endocrinology and pt. States she had appt. Last week, settings were adjusted and will she'll them again in a month. Hgb A1c was 12.6 w/initial labs and pt. Reports this is an improvement from 9. Discussed MFM referral and diabetic education for TIDM and and REFINERY OPERATOR called to verify pt. To be called again to schedule and was assured of same. 10. Advised visit to dentist for cleaning during and use of seat belt in the car 11. UTI: pt. Finished antibiotic and denies further symptoms. MATTY/CCMS sent 12. Genetics: desires ALL and to have NIPS in 4 wks. 13. Hx. section x2 and plans for repeat 14. Hx. EKVIN: sober x 2yr. 15. Return 4 wks. Fam Smart APRN-CN 02/16/250 documented in this encounter [facility] 02-14-2025 Miscellaneous Notes Pt states Unisom and B6 are not helping with nausea. Pt is requesting RX to help with nausea. Please advise. Thank you WOLFFRAN SENT Pt called back and informed her of this information. She verbalized understanding. - Jennyfer Ye RN 02/15/25 9:25 AM documented in this encounter [facility] 02-14-2025 Telephone encounter Note Pt states Unisom and B6 are not helping with nausea. Pt is requesting RX to help with nausea. Please advise. Thank you [facility] 02-14-2025 Telephone encounter Note ZOFRAN SENT [facility] Work Phone: 02-14-2025 Telephone encounter Note Pt called back and informed her of this information. She verbalized understanding. - Jennyfer Ye RN 02/15/25 9:25 AM [facility] 01-27-2025 Miscellaneous Notes Spoke with OB office. Explained recommendations per Dr Price and patient declining recommendations. OB office will contact patient. Endo Tech will schedule patient for ultrasound and consult. documented in this encounter [facility] 01-27-2025 Telephone encounter Note Spoke with OB office. Explained recommendations per Dr Price and patient declining recommendations. OB office will contact patient. Endo Tech will schedule patient for ultrasound and consult. [facility] 01-25-2025 Miscellaneous Notes Discussed referral with Dr Price. Recommeded patient present to main ED for DKA workup or potential direct admit. Left detailed message on patient phone to present to main ED for evaluation. Requested return phone call confirming recommendation. If rfp writer does not hear from patient by 1600, will attempt to contact again. No return call from patient by 1630. Second call. Spoke with Allex and states she does not have ketones in her urine, seeing housekeeping department worker on Friday. Declines recommendation to be evaluated in the ED. Stressed recommendation by Dr Price. Patient states that she will discuss with her housekeeping department worker on Friday and then will determine if needs to be seen in the ED. Dr Price notified. documented in this encounter [facility] 01-25-2025 Telephone encounter Note Discussed referral with Dr Price. Recommeded patient present to main ED for DKA workup or potential direct admit. Left detailed message on patient phone to present to main ED for evaluation. Requested return phone call confirming recommendation. If rfp writer does not hear from patient by 1600, will attempt to contact again. [facility] 01-25-2025 Telephone encounter Note No return call from patient by 1630. Second call. Spoke with Douglas and states she does not have ketones in her urine, seeing housekeeping department worker on Friday. Declines recommendation to be evaluated in the ED. Stressed recommendation by Dr Price. Patient states that she will discuss with her housekeeping department worker on Friday and then will determine if needs to be seen in the ED. Dr Price notified. [facility] 01-25-2025 History of Present illness Narrative Patient to be called with results. She has a UTI in first trimester. Sensitivity shows susceptible to ampicillin, nitrofurantoin, and vancomycin. Patient is allergic to penicillin (anaphylaxis), so nitrofurantoin sent. Hemoglobin A1c 12.6 and glucose on CMP was 379. Stat MFM consult sent and patient to be recommended to see her housekeeping department worker JO. JOANNA Pacheco 01/25/25 [id number] documented in this encounter [facility] 01-18-2025 History of Present illness Narrative OB Intake Video Visit 29 y.o. at 7w3d new patient contacted through [facility] for OB intake video visit. verified and verbal consent obtained for video visit. Patient and provider both currently located in the [facility]. This was an unplanned / unprevented . FOB involved ([place]). Patient has type 1 diabetes and saw her housekeeping department worker today. She sees them every 3 months. Patient denies vaginal bleeding. Frequent nausea / vomiting. RX sent for unisom / b-6. Obstetrical, Medical, Surgical, Social & Family history reviewed. Reviewed EDC and that it could change based upon ultrasound. Problem list updated. Negative history of short cervix, HSV, PPH, shoulder dystocia, IUGR, severe anemia, or 4th degree lacerations. No hx LEEP. Risk factors include: Type 1 diabetic, hx c/s x 2, hx macrosomia, hx CA. 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 Discussed testing. Pt desires all. The patient reports that there is not domestic violence in her life. Discussed exercise, diet and weight gain. Current BMI 25. Discussed smoking, alcohol use and drug use. Patient denies all. Discussed early danger signs and when/how to notify provider. Reviewed CNM / FIBROUS PLASTERER care, collaboration & referral to SENIOR POWER PLANT OPERATOR as needed. Reviewed course of care. Discussed CDC recommendation for exclusive for the first 6 months. Patient has been covid vaccinated. Discussed recommendations in . RX sent for vitamin. All questions answered. Educational materials provided through [employer]. Ultrasound and labs ordered. Patient to get scheduled for initial OB visit with provider in the office. Will need HUMZA signed for previous records. JOANNA Pacheco 01/18/25 1514 documented in this encounter [facility] 12-30-2024 Telephone encounter Note Pt PA for omnipods denied because she hasn't completed diabetes education. Please give script for pens and pen needles until she's able to complete the educational class. Please also refer for diabetes education. Thank you! [facility] 12-30-2024 Miscellaneous Notes Pt PA for omnipods denied because she hasn't completed diabetes education. Please give script for pens and pen needles until she's able to complete the educational class. Please also refer for diabetes education. Thank you! documented in this encounter [facility] 10-19-2024 History of Present illness Narrative Images from the original note were not included. Douglas Cordova is a 29 y.o. female No ref. provider found presents with chief complaint of Diabetes Mellitus and Follow-up HPI: IM : 09/2024 follow up visit on 10/19/2024 A1c 13.5 , bg 230, basal 12 am 1.2, 4 am 1.4, 8 am 1.6, 6 pm 1.5, 10 pm 1.4. ICR 1:5, ISS 1:10. IM : 06/2024 follow up visit on 07/12/2024 A1c 11.5 , bg 250, basal 12 am 1.2, 4 am 1.4, 8 am 1.6, 6 pm 1.5, 10 pm 1.4. ICR 1:5, ISS 1:30. Using insulin pump Omnipod as a basal only, H as 10 units ac. IM : 03/2024 follow up visit on 04/12/2024 A1c 14.1 , bg 99, basal 12 am 1.2, 4 am 1.4, 8 am 1.6, 6 pm 1.5, 10 pm 1.4. ICR 1:5, ISS 1:30. Using insulin pump Omnipod as a basal only, does not use bolus insulin. Was in longterm. IM : 10/2021 follow up visit on [...] SUBJECTIVE: MEDICATIONS: Current Outpatient Medications Medication Instructions carisoprodol (SOMA) 350 mg, 3 times daily PRN ibuprofen 800 mg, Oral, 3 times daily PRN Insulin Disposable Pump (Omnipod DASH Pods, Gen 4,) misc USE DIRECTED, REPLACE POD EVERY 72 HOURS insulin lispro (HumaLOG) 100 UNIT/ML injection INJECT 10-12-15 UNITS EACH MEAL PLUS SLIDING SCALE #2 (EXPECT 60 UNITS SUBCUTANEOUSLY (UNDER THE SKIN) DAILY) Insulin Lispro 100 Units, Subcutaneous, Continuous, WITH INSULIN PUMP insulin regular (HumuLIN R,NovoLIN R) 100 UNIT/ML injection 3 times daily with meals ALLERGIES: Allergies Allergen Reactions Penicillins Swelling Throat swells Shellfish-Derived Products Swelling Throat swells Past Medical History: Diagnosis Date Anxiety Asthma (CMS/HCC) Attention deficit disorder (ADD) without hyperactivity Bipolar 1 disorder, mixed (CMS/HCC) Diabetic gastroparesis associated with type 1 diabetes mellitus (CMS/HCC) Dietary counseling and surveillance Encounter for fitting and adjustment of insulin pump Fibromyalgia SANA (generalized anxiety disorder) (CMS/HCC) GERD without esophagitis Insomnia, persistent FPC (current) use of insulin (CMS/HCC) Mild intermittent asthma without complication (CMS/HCC) Non-recurrent acute serous otitis media of left ear Opiate use Plaque psoriasis (CMS/HCC) Presence of insulin pump Seasonal allergic rhinitis due to pollen Tobacco user Type 1 diabetes mellitus with diabetic polyneuropathy (CMS/HCC) Type 1 diabetes mellitus with hyperglycemia (HCC) (CMS/HCC) Underweight Vitamin D deficiency Past Surgical History: [...] to medical management plan Feet: numbness tingling yes , ulcers or skin break no Lab Results Component Value Date HGBA1C 13.5 10/19/2024 HGBA1C 11.5 07/12/2024 HGBA1C 14.1 04/12/2024 Lab Results Component Value Date GLU 230 10/19/2024 GLU 250 07/12/2024 GLU 129 (H) 05/30/2024 11/07/2021 2:25 PM 08/05/2022 9:55 AM 10/02/2023 9:59 AM 04/02/2024 10:43 AM 04/12/2024 11:36 AM 07/12/2024 11:04 AM 10/19/2024 2:14 PM Vitals BMI 22.08 kg/m2 22.26 kg/m2 26.73 kg/m2 26.73 kg/m2 28.89 kg/m2 26.46 kg/m2 25.7 kg/m2 BSA (m2) 1.74 m2 1.75 m2 2 m2 2 m2 2.03 m2 1.95 m2 1.92 m2 Systolic 122 150 136 128 100 94 Diastolic 84 94 78 82 70 60 Heart Rate 77 111 104 99 108 88 SpO2 100 % 97 % 97 % Temp 97 F 97.8 F Resp 18 20 20 18 16 18 Height (in) 5' 7 5' 7 5' 9 5' 9 5' 8 5' 8 5' 8 Weight (lb) 141 142.13 181 181 190 174 169 Visit Report Report Report Report Report Report ASSESSMENT AND PLAN: Assessment/Plan Diagnoses and all orders for this visit: Type 1 diabetes mellitus with hyperglycemia (HCC) ([facility]) - POCT glucose manually resulted - POCT glycosylated hemoglobin (Hb A1C) docked device - Insulin Disposable Pump (Omnipod DASH Pods, Gen 4,) misc; USE DIRECTED, REPLACE POD EVERY 72 HOURS I will increase her basal rate to 12:00 a.m. 1.5, 4 a.m. 1.7, 8:00 a.m. 1.8, 6:00 p.m. 2 units, 10:00 p.m. 1.8. keep ICR 1:5, ISS 1:10 a.m. I am not sure if using bolus for meals. Insulin long-term use ([facility]) Insulin pump in place Encounter for dietary consultation Encounter for fitting or adjustment of insulin pump Follow up in about 3 months (around 01/18/2025). documented in this encounter [facility] 07-12-2024 History of Present illness Narrative Douglas Cordova is a 29 y.o. female No ref. provider found presents with chief complaint of Diabetes HPI: IM : 06/2024 follow up visit on 07/12/2024 A1c 11.5 , bg 250, basal 12 am 1.2, 4 am 1.4, 8 am 1.6, 6 pm 1.5, 10 pm 1.4. ICR 1:5, ISS 1:30. Using insulin pump Omnipod as a basal only, H as 10 units ac. IM : 03/2024 follow up visit on 04/12/2024 A1c 14.1 , bg 99, basal 12 am 1.2, 4 am 1.4, 8 am 1.6, 6 pm 1.5, 10 pm 1.4. ICR 1:5, ISS 1:30. Using insulin pump Omnipod as a basal only, does not use bolus insulin. Was in longterm. IM : 10/2021 follow up visit on [...] 4 hours PRN carisoprodol (SOMA) 350 mg, 3 times daily PRN Clobetasol Propionate 0.05 [...] USE DIRECTED, REPLACE POD EVERY 72 HOURS insulin lispro (HumaLOG) 100 UNIT/ML injection INJECT 10-12-15 UNITS EACH MEAL PLUS SLIDING SCALE #2 (EXPECT 60 UNITS SUBCUTANEOUSLY (UNDER THE SKIN) DAILY) Insulin Lispro (HumaLOG) 100 UNIT/ML solution 1 [...] (ADD) without hyperactivity Bipolar 1 disorder, mixed (CMS/HCC) Diabetic gastroparesis associated with type 1 diabetes mellitus (CMS/HCC) Dietary counseling and surveillance Encounter for fitting and adjustment of insulin pump Fibromyalgia SANA (generalized anxiety disorder) (CMS/HCC) GERD without esophagitis Insomnia, persistent FPC (current) use of insulin (CMS/HCC) Mild intermittent asthma without complication (CMS/HCC) Non-recurrent acute serous otitis media of left ear Opiate use Plaque psoriasis (CMS/HCC) Presence of insulin pump Seasonal allergic rhinitis due to pollen Tobacco user Type 1 diabetes mellitus with diabetic polyneuropathy (CMS/HCC) Type 1 diabetes mellitus with hyperglycemia (HCC) (CMS/HCC) Underweight Vitamin D deficiency Past Surgical History: [...] to medical management plan Feet: numbness tingling yes , ulcers or skin break no Lab Results Component Value Date HGBA1C 11.5 07/12/2024 HGBA1C 14.1 04/12/2024 HGBA1C >16.5 (H) 06/07/2021 Lab Results Component Value Date GLU 250 07/12/2024 GLU 129 (H) 05/30/2024 GLU 97 05/29/2024 Visit Vitals BP 100/70 Pulse 108 Resp 16 Ht 5' 8 Wt 174 lb BMI 26.46 kg/m Smoking Status Former BSA 1.95 m ASSESSMENT AND PLAN: Assessment/Plan Diagnoses and all orders for this visit: Type 1 diabetes mellitus with hyperglycemia (HCC) ([facility]) - POCT glycosylated hemoglobin (Hb A1C) docked device - POCT glucose manually resulted - Insulin Lispro (HumaLOG) 100 UNIT/ML solution; Inject 1 each under the skin continuously We will continue his insulin pump as a basal, and use meal insulin as 06/13/18 according to meal size from outside. Insulin long-term use ([facility]) Insulin pump in place Encounter for dietary consultation Diet and exercise reviewed with the patient Encounter for fitting or adjustment of insulin pump Follow up in about 3 months (around 10/10/2024). documented in this encounter [facility] 06-01-2024 Miscellaneous Notes This patient was seen by our service at [facility]. She had left against medical advice. Urine culture came back positive for urinary tract infection and according to susceptibility testing, most antibiotics that are effective against this infection are intravenous, so I can not send a prescription for a tablet. Please reach out to the patient and check if she is doing okay. If she does not have any symptoms she should just get evaluated by her PCP in the office and maybe repeat urine culture can be ordered if she has any symptoms such as fever, abdominal pain, vomiting, dizziness or any other symptoms she should be evaluated at the hospital. Thank you [facility] encounter [facility]24 Telephone encounter Note This patient was seen by our service at [facility]. She had left against medical advice. Urine culture came back positive for urinary tract infection and according to susceptibility testing, most antibiotics that are effective against this infection are intravenous, so I can not send a prescription for a tablet. Please reach out to the patient and check if she is doing okay. If she does not have any symptoms she should just get evaluated by her PCP in the office and maybe repeat urine culture can be ordered if she has any symptoms such as fever, abdominal pain, vomiting, dizziness or any other symptoms she should be evaluated at the hospital. [facility] you [facility] Phone[facility] 05-30-2024 Hospital course Narrative Images from the original note were not included. [facility] JARETH [facility] [address] [id number] Hospital Medicine Discharge Summary Patient: Douglas Cordova Date of : 1995 Room: 216/01 Encounter date: 05/30/24 Hospital Day: 4 DATE OF ADMISSION: 05/27/2024 DATE OF DISCHARGE:05/30/2024 DISCHARGE DIAGNOSES Principal Problem: Diabetic ketoacidosis without coma associated with type 1 diabetes mellitus ([facility]) CONSULTANTS None PCP: JONI Oakley PROCEDURES none HOSPITAL COURSE SUMMARY Douglas Cordova is a 28 y.o. female who presents with elevated blood sugar. Patient has a history of type 1 diabetes. She was recently seen at [facility] but reports she was forced to leave d/t taking a shower. Upon admission patient appeared to be in DKA. Blood sugar was in the 400s, Anion gap was 16 patient was acidotic per arterial blood gas. She was started on insulin drip as well as normal saline with 20 mEq of potassium. White blood cell count 27.7. Beta hydroxybutyrate 11.28. Drug screen negative. Patient seen and examined this morning at bedside. Patient continues to complain of abdominal pain as well as vomiting. She is requesting a diet, we will start patient on clear liquid diet with very strict carb controlled. Diabetic ketoacidosis without coma associated with type 1 diabetes -Discontinue Insulin infusion -Lantus 15 units b.i.d., ACHS sliding scale coverage as well. -continue normal saline for hydration due to decreased oral intake -beta hydroxybutyrate 11.28 -white blood cell from 27.7 to 7.9 today -anion gap 26 on admission, currently 5 -CO2 23 today, from 7 -pH 7.039 yesterday- recheck VBG pH of 7.38 - continue IV Protonix daily - p.r.n. Zofran -scopolamine patch ordered Acute cystitis -CT abdomen ordered-suggesting cystitis -urinalysis completed, and urine culture in process -will start on ciprofloxacin due to penicillin/sulfa allergy -check EKG, risk for QT prolongation Hypokalemia/hypocalcemia/hypomagn esemia/hypophosphatemia -replacement scales ordered -recheck phos today Pt left AMA. RN informed rfp writer that pt was educated on risks of leaving AMA and pt still chose to leave. Code Status: Full Code Labs Recent Results (from the past 48 hours) Bedside Glucose *Place/Obtain serum glucose if >500(>600 [facility]) per glucometer. Collection Time: 05/28/24 7:04 PM Result Value Ref Range Bedside glucose 167 (H) 65 - 99 mg/dL Electrolyte panel Collection Time: 05/28/24 8:08 PM Result Value Ref Range Sodium 146 134 - 146 mmol/L Potassium, Bld 3.8 3.5 - 5.0 mmol/L Chloride 117 (H) 98 - 109 mmol/L CO2 16 (L) 22 - 32 mmol/L Anion gap 13 5 - 15 mmol/L Bedside Glucose *Place/Obtain serum glucose if >500(>600 [facility]) per glucometer. Collection Time: 05/28/24 8:10 PM Result Value Ref Range Bedside glucose 183 (H) 65 - 99 mg/dL Bedside Glucose *Place/Obtain serum glucose if >500(>600 [facility]) per glucometer. Collection Time: 05/28/24 9:22 PM Result Value Ref Range Bedside glucose 245 (H) 65 - 99 mg/dL Electrolyte panel Collection Time: 05/28/24 11:52 PM Result Value Ref Range Sodium 146 134 - 146 mmol/L Potassium, Bld 3.1 (L) 3.5 - 5.0 mmol/L Chloride 118 (H) 98 - 109 mmol/L CO2 21 (L) 22 - 32 mmol/L Anion gap 7 5 - 15 mmol/L Bedside Glucose *Place/Obtain serum glucose if >500(>600 [facility]) per glucometer. Collection Time: 05/29/24 12:02 AM Result Value Ref Range Bedside glucose 144 (H) 65 - 99 mg/dL Bedside Glucose *Place/Obtain serum glucose if >500(>600 [facility]) per glucometer. Collection Time: 05/29/24 1:05 AM Result Value Ref Range Bedside glucose 117 (H) 65 - 99 mg/dL Bedside Glucose *Place/Obtain serum glucose if >500(>600 [facility]) per glucometer. Collection Time: 05/29/24 2:22 AM Result Value Ref Range Bedside glucose 54 (L) 65 - 99 mg/dL Bedside Glucose *Place/Obtain serum glucose if >500(>600 [facility]) per glucometer. Collection Time: 05/29/24 3:06 AM Result Value Ref Range Bedside glucose 100 (H) 65 - 99 mg/dL Bedside Glucose *Place/Obtain serum glucose if >500(>600 [facility]) per glucometer. Collection Time: 05/29/24 3:48 AM Result Value Ref Range Bedside glucose 100 (H) 65 - 99 mg/dL Bedside Glucose *Place/Obtain serum glucose if >500(>600 [facility]) per glucometer. Collection Time: 05/29/24 4:52 AM Result Value Ref Range Bedside glucose 135 (H) 65 - 99 mg/dL Bedside Glucose *Place/Obtain serum glucose if >500(>600 [facility]) per glucometer. Collection Time: 05/29/24 6:17 AM Result Value Ref Range Bedside glucose 81 65 - 99 mg/dL Comprehensive metabolic panel Collection Time: 05/29/24 6:20 AM Result Value Ref Range Sodium 148 (H) 134 - 146 mmol/L Potassium, Bld 2.8 (L) 3.5 - 5.0 mmol/L Chloride 119 (H) 98 - 109 mmol/L CO2 22 22 - 32 mmol/L Anion gap 7 5 - 15 mmol/L BUN 10 5 - 23 mg/dL Creatinine 0.51 0.40 - 1.00 mg/dL Glucose 97 65 - 99 mg/dL Calcium 8.1 (L) 8.5 - 10.5 mg/dL Total Protein 6.3 6.0 - 8.0 g/dL Albumin 3.4 3.2 - 5.3 g/dL Alkaline Phosphatase 63 39 - 130 U/L AST 48 (H) 0 - 41 U/L ALT 36 (H) 0 - 31 U/L Total bilirubin 0.3 0.3 - 1.2 mg/dL eGFR (CKD-EPI)non-race dependent >90 >59 ml/min/1.73sq.m Magnesium Collection Time: 05/29/24 6:20 AM Result Value Ref Range Magnesium 1.5 (L) 1.8 - 2.6 mg/dL CBC auto differential Collection Time: 05/29/24 6:20 AM Result Value Ref Range White Blood Cells 13.1 (H) 4.0 - 11.0 X10E9/L RBC count 4.12 3.80 - 5.20 X10E12/L Hemoglobin 10.6 (L) 11.7 - 15.5 g/dL Hematocrit 31.8 (L) 35 - 47 % MCV 77 (L) 80 - 100 fL MCH 25.8 (L) 27 - 34 pg MCHC 33.4 32 - 36 g/dL RDW 14.3 11.5 - 15.0 % Platelets 286 150 - 450 X10E9/L MPV 7.9 7 - 12 fL % neutrophils 87.2 % % lymphocytes 7.0 % % monocytes 5.7 % % eosinophils 0.0 % % Basophils 0.1 % Neutrophils Absolute (A) 11.4 (H) 1.5 - 6.6 X10E9/L Lymphocytes Absolute 0.9 (L) 1.0 - 3.5 X10E9/L Monocytes Absolute 0.8 0 - 0.9 X10E9/L Eosinophils Absolute 0.0 0.0 - 0.4 X10E9/L Basophils Absolute 0.0 0.0 - 0.2 X10E9/L Phosphorus Collection Time: 05/29/24 6:20 AM Result Value Ref Range Phosphorus <1.0 (LL) 2.4 - 4.9 mg/dL Bedside Glucose *Place/Obtain serum glucose if >500(>600 [facility]) per glucometer. Collection Time: 05/29/24 7:12 AM Result Value Ref Range Bedside glucose 94 65 - 99 mg/dL Bedside Glucose *Place/Obtain serum glucose if >500(>600 [facility]) per glucometer. Collection Time: 05/29/24 8:31 AM Result Value Ref Range Bedside glucose 114 (H) 65 - 99 mg/dL Electrolyte panel Collection Time: 05/29/24 8:34 AM Result Value Ref Range Sodium 150 (H) 134 - 146 mmol/L Potassium, Bld 3.3 (L) 3.5 - 5.0 mmol/L Chloride 119 (H) 98 - 109 mmol/L CO2 22 22 - 32 mmol/L Anion gap 9 5 - 15 mmol/L Blood gas, venous Collection Time: 05/29/24 8:38 AM Result Value Ref Range Sample Type VENOUS Body Temp 37.0 37.0 C pH, Venous 7.383 7.320 - 7.420 PCO2, Venous 35.8 35 - 50 MMHG PO2, Venous 35 30 - 50 MMHG Base,Deficit 3.0 (H) 0.0 - 2.0 MMOL/L Portable HCO3 21.3 20.0 - 24.0 MMOL/L % O2 Sat 67.0 (L) >80.0 % Cami's Test NA Sample Site N/A Oxygen Source RoomAir Bedside Glucose *Place/Obtain serum glucose if >500(>600 [facility]) per glucometer. Collection Time: 05/29/24 10:02 AM Result Value Ref Range Bedside glucose 122 (H) 65 - 99 mg/dL Bedside Glucose *Place/Obtain serum glucose if >500(>600 [facility]) per glucometer. Collection Time: 05/29/24 11:02 AM Result Value Ref Range Bedside glucose 100 (H) 65 - 99 mg/dL Bedside Glucose *Place/Obtain serum glucose if >500(>600 [facility]) per glucometer. Collection Time: 05/29/24 12:03 PM Result Value Ref Range Bedside glucose 73 65 - 99 mg/dL Electrolyte panel Collection Time: 05/29/24 12:05 PM Result Value Ref Range Sodium 147 (H) 134 - 146 mmol/L Potassium, Bld 3.1 (L) 3.5 - 5.0 mmol/L Chloride 120 (H) 98 - 109 mmol/L CO2 23 22 - 32 mmol/L Anion gap 4 (L) 5 - 15 mmol/L Bedside Glucose *Place/Obtain serum glucose if >500(>600 [facility]) per glucometer. Collection Time: 05/29/24 12:54 PM Result Value Ref Range Bedside glucose 88 65 - 99 mg/dL Bedside Glucose *Place/Obtain serum glucose if >500(>600 [facility]) per glucometer. Collection Time: 05/29/24 4:30 PM Result Value Ref Range Bedside glucose 249 (H) 65 - 99 mg/dL Urinalysis Collection Time: 05/29/24 4:38 PM Result Value Ref Range Color YELLOW YELLOW^YELLOW Turbidity HAZY (A) CLEAR^CLEAR Specific gravity 1.025 1.003 - 1.035 Nitrite Negative Negative^Negative Ph urine 6.0 5.0 - 8.5 Leukocyte esterase Trace (A) Negative^Negative Protein Trace (A) Negative^Negative mg/dL Glucose, Ur >1,000 (A) Negative^Negative mg/dL Ketones urine >80 (A) Negative^Negative mg/dL Urobilinogen 0.2 <1.1 eu/dL Bilirubin, urine Negative Negative^Negative Hemoglobin Trace (A) Negative^Negative WBC >100 (H) 0 - 5 /hpf RBC 2 0 - 5 /hpf Squamous epithelium 2 0 - 5 /hpf WBC clumps RARE (A) NONE^NONE Bedside Glucose *Place/Obtain serum glucose if >500(>600 MR[facility]) per glucometer. Collection Time: 05/29/24 5:52 PM Result Value Ref Range Bedside glucose 318 (H) 65 - 99 mg/dL Potassium Collection Time: 05/29/24 6:30 PM Result Value Ref Range Potassium, Bld 3.0 (L) 3.5 - 5.0 mmol/L Magnesium Collection Time: 05/29/24 6:30 PM Result Value Ref Range Magnesium 2.0 1.8 - 2.6 mg/dL Bedside Glucose *Place/Obtain serum glucose if >500(>600 MR[facility]) per glucometer. Collection Time: 05/29/24 7:58 PM Result Value Ref Range Bedside glucose 336 (H) 65 - 99 mg/dL Electrolyte panel Collection Time: 05/29/24 8:19 PM Result Value Ref Range Sodium 143 134 - 146 mmol/L Potassium, Bld 3.4 (L) 3.5 - 5.0 mmol/L Chloride 114 (H) 98 - 109 mmol/L CO2 21 (L) 22 - 32 mmol/L Anion gap 8 5 - 15 mmol/L Bedside Glucose *Place/Obtain serum glucose if >500(>600 [facility]) per glucometer. Collection Time: 05/29/24 9:43 PM Result Value Ref Range Bedside glucose 287 (H) 65 - 99 mg/dL Potassium Collection Time: 05/30/24 2:30 AM Result Value Ref Range Potassium, Bld 3.2 (L) 3.5 - 5.0 mmol/L Bedside Glucose *Place/Obtain serum glucose if >500(>600 [facility]) per glucometer. Collection Time: 05/30/24 2:33 AM Result Value Ref Range Bedside glucose 148 (H) 65 - 99 mg/dL Comprehensive metabolic panel Collection Time: 05/30/24 5:15 AM Result Value Ref Range Sodium 142 134 - 146 mmol/L Potassium, Bld 3.1 (L) 3.5 - 5.0 mmol/L Chloride 112 (H) 98 - 109 mmol/L CO2 25 22 - 32 mmol/L Anion gap 5 5 - 15 mmol/L BUN 6 5 - 23 mg/dL Creatinine 0.41 0.40 - 1.00 mg/dL Glucose 129 (H) 65 - 99 mg/dL Calcium 7.4 (L) 8.5 - 10.5 mg/dL Total Protein 5.4 (L) 6.0 - 8.0 g/dL Albumin 2.9 (L) 3.2 - 5.3 g/dL Alkaline Phosphatase 61 39 - 130 U/L AST 28 0 - 41 U/L ALT 34 (H) 0 - 31 U/L Total bilirubin 0.6 0.3 - 1.2 mg/dL eGFR (CKD-EPI)non-race dependent >90 >59 ml/min/1.73sq.m Magnesium Collection Time: 05/30/24 5:15 AM Result Value Ref Range Magnesium 2.1 1.8 - 2.6 mg/dL CBC auto differential Collection Time: 05/30/24 5:15 AM Result Value Ref Range White Blood Cells 7.9 4.0 - 11.0 X10E9/L RBC count 3.58 (L) 3.80 - 5.20 X10E12/L Hemoglobin 9.4 (L) 11.7 - 15.5 g/dL Hematocrit 27.6 (L) 35 - 47 % MCV 77 (L) 80 - 100 fL MCH 26.2 (L) 27 - 34 pg MCHC 34.0 32 - 36 g/dL RDW 14.6 11.5 - 15.0 % Platelets 205 150 - 450 X10E9/L MPV 7.9 7 - 12 fL % neutrophils 65.6 % % lymphocytes 26.4 % % monocytes 7.6 % % eosinophils 0.1 % % Basophils 0.3 % Neutrophils Absolute (A) 5.2 1.5 - 6.6 X10E9/L Lymphocytes Absolute 2.1 1.0 - 3.5 X10E9/L Monocytes Absolute 0.6 0 - 0.9 X10E9/L Eosinophils Absolute 0.0 0.0 - 0.4 X10E9/L Basophils Absolute 0.0 0.0 - 0.2 X10E9/L Bedside Glucose *Place/Obtain serum glucose if >500(>600 [facility]) per glucometer. Collection Time: 05/30/24 12:07 PM Result Value Ref Range Bedside glucose 211 (H) 65 - 99 mg/dL Electrolyte panel Collection Time: 05/30/24 2:10 PM Result Value Ref Range Sodium 137 134 - 146 mmol/L Potassium, Bld 3.4 (L) 3.5 - 5.0 mmol/L Chloride 107 98 - 109 mmol/L CO2 26 22 - 32 mmol/L Anion gap 4 (L) 5 - 15 mmol/L Phosphorus Collection Time: 05/30/24 2:10 PM Result Value Ref Range Phosphorus 1.3 (L) 2.4 - 4.9 mg/dL Bedside Glucose *Place/Obtain serum glucose if >500(>600 [facility]) per glucometer. Collection Time: 05/30/24 4:55 PM Result Value Ref Range Bedside glucose 177 (H) 65 - 99 mg/dL Radiology CT abdomen and pelvis with contrast Result Date: 05/29/2024 Narrative: CLINICAL INFORMATION: Abdominal pain, acute, nonlocalized Nausea. COMPARISON: June 17, 2022 PROCEDURE: Routine CT abdomen and pelvis obtained after the uncomplicated intravenous administration of contrast material. Multiplanar reformats obtained from the axial data. Automated exposure control was utilized. FINDINGS: Lung bases show no acute findings No free air or free fluid Uterus and adnexa are unremarkable Bladder incompletely distended with a thickened wall. I cannot exclude cystitis. Findings best assessed in combination with other clinical data Liver gallbladder spleen pancreas adrenal glands and kidneys show no acute findings. No hydronephrosis or urinary tract stone identified IMPRESSION: Bladder incompletely distended with a thickened wall. I cannot exclude cystitis. Findings best assessed in combination with other clinical data No other acute findings All CT scans at this facility use dose modulation, iterative reconstruction, and/or weight based dosing when appropriate to reduce radiation dose to as low as reasonably achievable. Finalized by Arie Diallo MD on 05/29/2024 12:29 PM DISCHARGE INSTRUCTION Disposition: Home Condition:Stable Activity: activity as tolerated Diet: Adult diet Regular Texture; Consistent Carb 195 grams (1500 kcal) Adult diet Follow up: [facility] within 7-14 days. Labs/Imaging/Pathology: none Discharge Medications: Medication List CHANGE how you take these medications Instructions Last Dose Given Next Dose Due insulin lispro 100 unit/mL injection Commonly known as: HumaLOG What changed: additional instructions Take 2 units per 15 grams of carbohydrates up to 10 units per 75 grams of carbohydrates within 15 minutes of finishing meals together with correction insulin when needed. CONTINUE taking these medications Instructions Last Dose Given Next Dose Due insulin glargine 100 unit/mL (3 mL) insulin pen Commonly known as: LANTUS, SEMGLEE Inject 20 Units under the skin in the morning and 20 Units before bedtime. >30 minutes were spent on discharging this patient. JOANNA Rankin 05/30/2024 6:01 PM [facility] 7AM-7PM (all facilities): EpicChat or page through Vocera. 7PM-7AM ([facility], [facility]): EpicChat or page, [phone]. 7PM-7AM ([place], [place], [place], [place] and [facility]): EpicChat or page through Vocera. JOANNA Rankin 05/30/24 180 documented in this encounter [facility] 05-30-2024 Nurse Note Patient has been stating all day that the doctor has said they would be discharged today. No discharged order was placed for patient today and rfp writer informed patient that they do not have a discharge order and that the doctor has not stated they were discharging them yet. Patient came in for hyperglycemia and DKA. Discussed signs and symptoms, and risks of hyperglycemia and DKA with patient and that it is possible that he blood glucose could become high again and that they could experience DKA again. Patients potassium was also low. Discussed signs and symptoms and risks of low potassium with patient. Patient stated they understood what the risks are and was still insistent on leaving AMA. Patient signed AMA form and rfp writer walked patient down to front doors to wait for her ride at 1718. [facility] 05-30-2024 Nurse Note Patient has been stating all day that the doctor has said they would be discharged today. No discharged order was placed for patient today and rfp writer informed patient that they do not have a discharge order and that the doctor has not stated they were discharging them yet. Patient came in for hyperglycemia and DKA. Discussed signs and symptoms, and risks of hyperglycemia and DKA with patient and that it is possible that he blood glucose could become high again and that they could experience DKA again. Patients potassium was also low. Discussed signs and symptoms and risks of low potassium with patient. Patient stated they understood what the risks are and was still insistent on leaving AMA. Patient signed AMA form and rfp writer walked patient down to front doors to wait for her ride at 1718. Pt refuses to stay out of shower and keep learning program manager on. Nurse instructed pt not to get into shower, pt refuses to follow instructions. Up in shower at this time. Emesis x 1, approximately 100 ml of thin brown mucous. T/o shift pt removed gown and security intern to get into shower several times ( at least 4times) and caught multiple times drinking water from faucets in room, despite pt instruction not do these things and rationale given. Pt occasionally stated OK , but proceeded to do these things anyway. Importance of being careful not to dislodge IV site d/t difficulty starting IV reinforced, pt again verbalized understanding but proceeded to ignore education/guidance from RN. Patient was provided mouth swabs and a small cup of iced water and was educated on only using swabs to keep mouth moist and not drink water. Patient refusing to follow directions and keep filling up cup with water from the faucet when RN is out of the room. RN educated patient on not doing this because it'll continue to make her nauseated and vomit, patient refuses to be compliant. Patient pulling off leads and gets in shower, states this helps her nausea, RN educated her on the need to keep her closely monitored and she cannot continue to do this, patient ignoring RN instructions. Patient states she is thinking about leaving AMA. RN educated the patient that this is not the bed thing for her health but it is her right. documented in this encounter [facility] 05-30-2024 Plan of care note Problem: Pain Goal: Patient goal is pain score less than 4, able to rest, and participant in treatment plan as appropriate Description: INTERVENTIONS: 1. Encourage patient or legal veterans employment representative to report early pain and ask [...] policy 9. Teach patient or legal veterans employment representative interventions for comforting Outcome: Progressing Note: Evaluation of progress towards goal: Pt encouraged to report early pain, non pharmacological measures implemented as needed. Pt able to report pain according to 0/10 pain scale. Medicating patient for pain per orders. Problem: Safety Goal: Patient will be injury free during hospitalization Description: INTERVENTIONS: 1. Assess patient's risk for falls and implement fall prevention plan of care per policy 2. Provide and maintain a safe environment 3. Proper use of double Identifiers 4. Medication administration using the 5 rights 5. Hand hygiene 6. Specimens are labeled at the bedside 7. Instruct patient/ patient veterans employment representative about use of safety devices 8. Include patient/ patient veterans employment representative in decisions related to safety Outcome: Progressing Note: Evaluation of progress towards goal: Pt's risk for falls assessed and fall prevention implemented as needed, safe environment provided and maintained, hand hygiene completed. Problem: Infection Goal: Absence of infection during [...] technique 7. Identify and instruct patient/patient veterans employment representative in use of appropriate isolation precautions for identified infection/symptoms 8. Provide and discuss with patient/patient veterans employment representative on educational MDRO sheet 9. Encourage and monitor nutritional status daily and consult animal technician if indicated 10. Implement neutropenic guidelines as needed 11. Review exposure to history of communicable disease and recent travel history on admission 12. Encourage annual influenza vaccine 13. Encourage pneumonia vaccine Outcome: Progressing Note: Evaluation of progress towards goal: Pt assessed and monitored for signs and symptoms of infection, lab and diagnostic results monitored as needed, administer medications as needed. Problem: Knowledge Deficit Goal: Patient/patient veterans employment representative demonstrates understanding of disease process, treatment plan, medications, and discharge instructions Description: INTERVENTIONS 1. Complete learning assessment and assess knowledge base 2. Provide teaching at level of understanding 3. Provide teaching via preferred learning method(s) Outcome: Progressing Note: Evaluation of progress towards goal: Pt learning and knowledge base assessed, teaching provided at an understandable level as needed, teaching provided via preferred learning method. [facility] 05-30-2024 Miscellaneous Notes Problem: Pain Goal: Patient goal is pain score less than 4, able to rest, and participant in treatment plan as appropriate Description: INTERVENTIONS: 1. Encourage patient or legal veterans employment representative to report early pain and ask [...] policy 9. Teach patient or legal veterans employment representative interventions for comforting Outcome: Progressing Note: Evaluation of progress towards goal: Pt encouraged to report early pain, non pharmacological measures implemented as needed. Pt able to report pain according to 0/10 pain scale. Medicating patient for pain per orders. Problem: Safety Goal: Patient will be injury free during hospitalization Description: INTERVENTIONS: 1. Assess patient's risk for falls and implement fall prevention plan of care per policy 2. Provide and maintain a safe environment 3. Proper use of double Identifiers 4. Medication administration using the 5 rights 5. Hand hygiene 6. Specimens are labeled at the bedside 7. Instruct patient/ patient veterans employment representative about use of safety devices 8. Include patient/ patient veterans employment representative in decisions related to safety Outcome: Progressing Note: Evaluation of progress towards goal: Pt's risk for falls assessed and fall prevention implemented as needed, safe environment provided and maintained, hand hygiene completed. Problem: Infection Goal: Absence of infection during [...] technique 7. Identify and instruct patient/patient veterans employment representative in use of appropriate isolation precautions for identified infection/symptoms 8. Provide and discuss with patient/patient veterans employment representative on educational MDRO sheet 9. Encourage and monitor nutritional status daily and consult animal technician if indicated 10. Implement neutropenic guidelines as needed 11. Review exposure to history of communicable disease and recent travel history on admission 12. Encourage annual influenza vaccine 13. Encourage pneumonia vaccine Outcome: Progressing Note: Evaluation of progress towards goal: Pt assessed and monitored for signs and symptoms of infection, lab and diagnostic results monitored as needed, administer medications as needed. Problem: Knowledge Deficit Goal: Patient/patient veterans employment representative demonstrates understanding of disease process, treatment plan, medications, and discharge instructions Description: INTERVENTIONS 1. Complete learning assessment and assess knowledge base 2. Provide teaching at level of understanding 3. Provide teaching via preferred learning method(s) Outcome: Progressing Note: Evaluation of progress towards goal: Pt learning and knowledge base assessed, teaching provided at an understandable level as needed, teaching provided via preferred learning method. Problem: Safety Goal: Patient will be injury free during hospitalization Description: INTERVENTIONS: 1. Assess patient's risk for falls and implement fall prevention plan of care per policy 2. Provide and maintain a safe environment 3. Proper use of double Identifiers 4. Medication administration using the 5 rights 5. Hand hygiene 6. Specimens are labeled at the bedside 7. Instruct patient/ patient veterans employment representative about use of safety devices 8. Include patient/ patient veterans employment representative in decisions related to safety Outcome: Not Progressing Note: Evaluation of progress towards goal: Pt non compliant. Refuses no skid socks. Problem: Knowledge Deficit Goal: Patient/patient veterans employment representative demonstrates understanding of disease process, treatment plan, medications, and discharge instructions Description: INTERVENTIONS 1. Complete learning assessment and assess knowledge base 2. Provide teaching at level of understanding 3. Provide teaching via preferred learning method(s) Note: Evaluation of progress towards goal: Pt non compliant with treatment plan. Pt refuses tele monitor. Problem: Gastrointestinal - Adult Goal: Minimal or absence of nausea and vomiting Description: INTERVENTIONS: 1. Administer IV fluids as ordered to ensure adequate hydration 2. Maintain NPO status as ordered until nausea and vomiting are resolved 3. Nasogastric tube to suction as ordered 4. Administer ordered antiemetic medications as needed 5. Provide nonpharmacologic comfort measures as appropriate 6. Advance diet as tolerated, if ordered 7. Nutrition consult to assist patient with adequate nutrition and appropriate food choices Outcome: Not Progressing Note: Evaluation of progress towards goal: Pt still reports nausea and vomiting. States zofran does not provide relief. Problem: Metabolic/Fluid and Electrolytes - Adult Goal: Electrolytes maintained within normal limits Description: INTERVENTIONS 1. Monitor for signs and symptoms of hypovolemia (tachycardia, rapid breathing, decreased urine output, postural hypotension, sunken fontanel) 2. Monitor for signs and symptoms of hypervolemia (strong rapid pulse, rapid breathing, crackles heard in lung [place], edema, decreased urine output, sudden weight gain, distended neck veins in older children, enlarged liver and spleen) 1. Monitor intake and output 2. Monitor pt's weight 1. Monitor labs and assess patient for signs and symptoms of electrolyte imbalances 2. Administer electrolyte replacement as ordered 3. Monitor response to electrolyte replacements, including repeat lab results as appropriate 4. Fluid restriction or hydration as ordered 5. Instruct patient/ legal veterans employment representative on nutrition/diet; fluid/hydration restrictions as appropriate Outcome: Progressing Note: Evaluation of progress towards goal: Electrolytes replaced per orders. Problem: Infection Goal: Absence of infection during [...] technique 7. Identify and instruct patient/patient veterans employment representative in use of appropriate isolation precautions for identified infection/symptoms 8. Provide and discuss with patient/patient veterans employment representative on educational MDRO sheet 9. Encourage and monitor nutritional status daily and consult animal technician if indicated 10. Implement neutropenic guidelines as needed 11. Review exposure to history of communicable disease and recent travel history on admission 12. Encourage annual influenza vaccine 13. Encourage pneumonia vaccine Outcome: Progressing Note: Evaluation of progress towards goal: pt educated on treatment plan, will continue to update pt prn. Problem: Pain Goal: Patient goal is pain score less than 4, able to rest, and participant in treatment plan as appropriate Description: INTERVENTIONS: 1. Encourage patient or legal veterans employment representative to report early pain and ask [...] policy 9. Teach patient or legal veterans employment representative interventions for comforting Outcome: Not Progressing Note: Evaluation of progress towards goal: Patient refusing rest and recommendations, thus experiencing N/V. Problem: Safety Goal: Patient will be injury free during hospitalization Description: INTERVENTIONS: 1. Assess patient's risk for falls and implement fall prevention plan of care per policy 2. Provide and maintain a safe environment 3. Proper use of double Identifiers 4. Medication administration using the 5 rights 5. Hand hygiene 6. Specimens are labeled at the bedside 7. Instruct patient/ patient veterans employment representative about use of safety devices 8. Include patient/ patient veterans employment representative in decisions related to safety Outcome: Not Progressing Note: Evaluation of progress towards goal: Patient refuses to follow safety protocols at this time. Problem: Knowledge Deficit Goal: Patient/patient veterans employment representative demonstrates understanding of disease process, treatment plan, medications, and discharge instructions Description: INTERVENTIONS 1. Complete learning assessment and assess knowledge base 2. Provide teaching at level of understanding 3. Provide teaching via preferred learning method(s) Outcome: Not Progressing Note: Evaluation of progress towards goal: Patient refuses patient education at this time. Problem: Pain Goal: Patient goal is pain score less than 4, able to rest, and participant in treatment plan as appropriate Description: INTERVENTIONS: 1. Encourage patient or legal veterans employment representative to report early pain and ask [...] policy 9. Teach patient or legal veterans employment representative interventions for comforting Outcome: Not Progressing Note: Evaluation of progress towards goal: Pt refuses to stay out of shower, continually drinks water while in shower, thus constantly exhibiting N/V. Problem: Safety Goal: Patient will be injury free during hospitalization Description: INTERVENTIONS: 1. Assess patient's risk for falls and implement fall prevention plan of care per policy 2. Provide and maintain a safe environment 3. Proper use of double Identifiers 4. Medication administration using the 5 rights 5. Hand hygiene 6. Specimens are labeled at the bedside 7. Instruct patient/ patient veterans employment representative about use of safety devices 8. Include patient/ patient veterans employment representative in decisions related to safety Outcome: Not Progressing Note: Evaluation of progress towards goal: Pt refuses to follow safety guidelines at this time. Problem: Knowledge Deficit Goal: Patient/patient veterans employment representative demonstrates understanding of disease process, treatment plan, medications, and discharge instructions Description: INTERVENTIONS 1. Complete learning assessment and assess knowledge base 2. Provide teaching at level of understanding 3. Provide teaching via preferred learning method(s) Outcome: Not Progressing Note: Evaluation of progress towards goal: Pt refuses education at this time. Will continue to attempt pt education when able to pt receptive. Images from the original note were not included. DISCHARGE PLANNING NOTE 05/28/24 0906 Discharge Disposition Discharge Disposition Home with Self Care County Information [facility] [place] Patient Information Primary Caregiver Self Support System Immediate family;Extended family;Friends (mom, grandmother) Stressors Type of stressor (does not endorse) Income Information Income Information Employed ([employer]) Referral To Community Resources Denies needs Discharge Planning Living Arrangements Family members (with grandmother) Support Systems Parent;Family members;Children;Friends Assistance Needed pt reports she is indepedent with adls/iadls Type of Residence Private residence Private Residence [address] [place] [address] Accessibility Steps into home Home Care Services No Patient expects to be discharged to: home Does the patient need discharge transport arranged? No Services Requested: Services Requested Patient expects to be discharged to:: home Discharge Disposition: Home with self care Initial DC Assessment Completed: Yes DC Planning Complete Discharge Milestones: Yes Patient Goals: Patient/Caregiver Goals Patient/Caregiver Goals: Home No Needs Home No Needs: Caregiver/Family Goals home (pt-stated) Evaluation of progress towards goal: not feeling better yet, encouraged pt to follow Chart reviewed. Introduced self & role of SW, pt agreeable to conversation; assessment/goals as above. Pt does not endorse alcohol/substance use. Pt does not endorse food insecurity or financial stressors. Pt is able to afford home medications. Pt has functioning water, heat, cooling & electric in the home. Pt does not endorse any type of domestic abuse. Pt does not endorse anxiety, depression or other mental health concerns; negative [place] screen. Pt said she sees counselor at [facility]. Pt provides own transportation. Pt is independent in/out of the home, uses no assist devices. Pt relayed her mom, 2 children ages 8 & 12, grandmother, friends & family provide natural supports. Patient's preferred pharmacy is [facility]. 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 Pt reports she is independent, pt does not endorse any at this time. Opportunity provided to ask questions, pt does not endorse any at this time. Encouraged pt to follow recommendations for diet/intake and showering due to monitoring equipment. Plan to prevent readmission is for pt to follow up with PCP, pt prefers to make own appointment, pt said she has appointment with Dr. Galloway scheduled, follow DC instructions including medication compliance and to reach out to health care team as needed. Care Navigation will continue to follow patient progress to determine appropriate safe care transition needs. Problem: Safety Goal: Patient will be injury free during hospitalization Description: INTERVENTIONS: 1. Assess patient's risk for falls and implement fall prevention plan of care per policy 2. Provide and maintain a safe environment 3. Proper use of double Identifiers 4. Medication administration using the 5 rights 5. Hand hygiene 6. Specimens are labeled at the bedside 7. Instruct patient/ patient veterans employment representative about use of safety devices 8. Include patient/ patient veterans employment representative in decisions related to safety Outcome: Progressing Note: Evaluation of progress towards goal: Remains free from injury Problem: Knowledge Deficit Goal: Patient/patient veterans employment representative demonstrates understanding of disease process, treatment plan, medications, and discharge instructions Description: INTERVENTIONS 1. Complete learning assessment and assess knowledge base 2. Provide teaching at level of understanding 3. Provide teaching via preferred learning method(s) Outcome: Not Progressing Note: Evaluation of progress towards goal: Plan of care reviewed, pt drinking water when has been instructed multiple times not to do so. Pt getting OOB into shower multiple times after being told not to do so d/t risk of dislodging IV site, etc Problem: Gastrointestinal - Adult Goal: Minimal or absence of nausea and vomiting Description: INTERVENTIONS: 1. Administer IV fluids as ordered to ensure adequate hydration 2. Maintain NPO status as ordered until nausea and vomiting are resolved 3. Nasogastric tube to suction as ordered 4. Administer ordered antiemetic medications as needed 5. Provide nonpharmacologic comfort measures as appropriate 6. Advance diet as tolerated, if ordered 7. Nutrition consult to assist patient with adequate nutrition and appropriate food choices Outcome: Not Progressing Note: Evaluation of progress towards goal: pt continues w/ dry heaves/ vomiting. Nausea meds as per orders. Problem: Metabolic/Fluid and Electrolytes - Adult Goal: Electrolytes maintained within normal limits Description: INTERVENTIONS 1. Monitor for signs and symptoms of hypovolemia (tachycardia, rapid breathing, decreased urine output, postural hypotension, sunken fontanel) 2. Monitor for signs and symptoms of hypervolemia (strong rapid pulse, rapid breathing, crackles heard in lung m[place], edema, decreased urine output, sudden weight gain, distended neck veins in older children, enlarged liver and spleen) 1. Monitor intake and output 2. Monitor pt's weight 1. Monitor labs and assess patient for signs and symptoms of electrolyte imbalances 2. Administer electrolyte replacement as ordered 3. Monitor response to electrolyte replacements, including repeat lab results as appropriate 4. Fluid restriction or hydration as ordered 5. Instruct patient/ legal veterans employment representative on nutrition/diet; fluid/hydration restrictions as appropriate Outcome: Progressing Note: Evaluation of progress towards goal: CO2 remains low, anion gap currently wnl. K wnl. Goal: Glucose maintained within prescribed range Description: Patient's goal is: INTERVENTIONS 1. Monitor Blood Glucose as ordered 2. Assess for signs and symptoms of hyperglycemia and hypoglycemia 3. Administer ordered medications to maintain glucose within target range 4. Assess barriers to adequate nutritional intake and initiate nutrition consult as needed 5. Instruct patient/ legal veterans employment representative on self management of diabetes and initiate consult as needed Outcome: Progressing Note: Evaluation of progress towards goal: FSBS improving w/ insulin gtt, fsbs checks and insulin gtt per protocol Problem: Pain Goal: Patient goal is pain score less than 4, able to rest, and participant in treatment plan as appropriate Description: INTERVENTIONS: 1. Encourage patient or legal veterans employment representative to report early pain and ask [...] policy 9. Teach patient or legal veterans employment representative interventions for comforting Outcome: Progressing Note: Evaluation of progress towards goal: Pt able to report pain according to 0/10 pain scale. Medicating patient for pain per orders. Problem: Safety Goal: Patient will be injury free during hospitalization Description: INTERVENTIONS: 1. Assess patient's risk for falls and implement fall prevention plan of care per policy 2. Provide and maintain a safe environment 3. Proper use of double Identifiers 4. Medication administration using the 5 rights 5. Hand hygiene 6. Specimens are labeled at the bedside 7. Instruct patient/ patient veterans employment representative about use of safety devices 8. Include patient/ patient veterans employment representative in decisions related to safety Outcome: Progressing Note: Evaluation of progress towards goal: Pt's risk for falls assessed and fall prevention implemented as needed, safe environment provided and maintained, hand hygiene completed. Problem: Infection Goal: Absence of infection during [...] technique 7. Identify and instruct patient/patient veterans employment representative in use of appropriate isolation precautions for identified infection/symptoms 8. Provide and discuss with patient/patient veterans employment representative on educational MDRO sheet 9. Encourage and monitor nutritional status daily and consult animal technician if indicated 10. Implement neutropenic guidelines as needed 11. Review exposure to history of communicable disease and recent travel history on admission 12. Encourage annual influenza vaccine 13. Encourage pneumonia vaccine Outcome: Progressing Note: Evaluation of progress towards goal: Patient VS WNL, remains afebrile for shift. Problem: Moderate - High Risk Fall Score Description: German Fall Score of =/> 25 or indicated by [facility] Assessment Goal: Patient should be free from fall Description: Interventions: 1. Duncan to environment 2. Hourly rounds addressing the [...] footwear 11. Teach patient and patient veterans employment representative to maintain environment for safety and [...] walker) within reach 19. Request patient veterans employment representative bring adaptive equipment/mobility aids from home or obtain and provide as needed 20. Consult pharmacy regarding effects of med's affecting mobility, cognition, and alternatives 21. Obtain physician order for PT if risk factors associated with mobility are present 22. Obtain physician order for OT as appropriate 23. Utilize diversional activities 24. Educate patient and patient veterans employment representative how to maintain a safe environment during visitation times (notify nurse prior to leaving bedside) 25. Consider appropriateness of medical or non-biomedical specialist 26. Set up voiding schedule as appropriate (every 2 hours) Outcome: Progressing Note: Evaluation of progress towards goal: Pt remains free from falls or accidental injury during stay. Fall prevention measures in place. Hourly rounding per RN and maintained. Problem: Gastrointestinal - Adult Goal: Minimal or absence of nausea and vomiting Description: INTERVENTIONS: 1. Administer IV fluids as ordered to ensure adequate hydration 2. Maintain NPO status as ordered until nausea and vomiting are resolved 3. Nasogastric tube to suction as ordered 4. Administer ordered antiemetic medications as needed 5. Provide nonpharmacologic comfort measures as appropriate 6. Advance diet as tolerated, if ordered 7. Nutrition consult to assist patient with adequate nutrition and appropriate food choices Outcome: Progressing Note: Evaluation of progress towards goal: Denies nausea or vomiting. Problem: Metabolic/Fluid and Electrolytes - Adult Goal: Glucose maintained within prescribed range Description: Patient's goal is: INTERVENTIONS 1. Monitor Blood Glucose as ordered 2. Assess for signs and symptoms of hyperglycemia and hypoglycemia 3. Administer ordered medications to maintain glucose within target range 4. Assess barriers to adequate nutritional intake and initiate nutrition consult as needed 5. Instruct patient/ legal veterans employment representative on self management of diabetes and initiate consult as needed Outcome: Progressing Note: Evaluation of progress towards goal: Glucose closely monitored. On insulin drip. documented in this encounter [facility] 05-30-2024 History of Present illness Narrative Images from the original note were not included. [facility] INTER[facility]IC[facility] - ACUTE CARE [facility] [id number] Hospital Medicine Progress Note Patient: Douglas Cordova Date of : 1995 Room: [facility]/ PCP: [facility] Admission date: 05/27/2024 1:36 PM Encounter date: 05/30/24 Hospital Day: 4 SUBJECTIVE Chief complaints: Chief Complaint Patient presents with High Blood Sugar - Symptomatic Pt left ama from [facility]. Came here with High Blood Sugar. States has been off of her pump since this am. Interval History: Status: improved. No overnight events or new complaints. Patient appears more comfortable today states her abdominal pain is much better, is able to eat a little bit but not sufficient enough. Patient advanced to regular diet encouraged to try to eat lunch and see how she tolerates. Review of Systems Constitutional: Positive for diaphoresis and fatigue. Negative for chills and fever. HENT: Negative for congestion, ear pain and sore throat. Eyes: Negative for pain and visual disturbance. Respiratory: Negative for cough, chest tightness and shortness of breath. Cardiovascular: Negative for chest pain and palpitations. Gastrointestinal: Positive for nausea and vomiting. Negative for abdominal pain. Genitourinary: Negative for difficulty urinating, dysuria, flank pain and hematuria. Musculoskeletal: Negative for arthralgias and back pain. Skin: Negative for color change and rash. Neurological: Negative for dizziness, seizures, syncope and light-headedness. Psychiatric/Behavioral: Positive for agitation. All other systems reviewed and are negative. OBJECTIVE BP 146/78 Pulse 66 Temp 37 C (98.6 F) (Oral) Resp 18 Ht 170.2 cm (5' 7 ) Wt 78 kg (171 lb 15.3 oz) LMP 05/19/2024 SpO2 96% BMI 26.93 kg/m Temp: [36.9 C (98.4 F)-37 C (98.6 F)] 37 C (98.6 F) Pulse: [66-104] 66 Resp: [16-18] 18 BP: (133-157)/(78-87) 146/78 SpO2: [95 %-97 %] 96 % O2 Device: None (Room air) O2 Flow Rate (L/min): [0 L/min] 0 L/min Intake/Output Summary (Last 24 hours) at 05/30/2024 1321 Last data filed at 05/30/2024 0533 Gross per 24 hour Intake 4.03 ml Output 950 ml Net -945.97 ml Physical Exam Vitals and nursing note reviewed. Constitutional: Appearance: She is well-developed. She is ill-appearing. HENT: Head: Normocephalic and atraumatic. Nose: Nose normal. Mouth/Throat: Mouth: Mucous membranes are dry. Comments: Appears hoarse from vomiting Eyes: Pupils: Pupils are equal, round, and reactive to light. Cardiovascular: Rate and Rhythm: Normal rate and regular rhythm. Heart sounds: Normal heart sounds. No murmur heard. Pulmonary: Effort: Pulmonary effort is normal. No respiratory distress. Breath sounds: Normal breath sounds. No wheezing. Abdominal: General: Bowel sounds are normal. Palpations: Abdomen is soft. Tenderness: There is abdominal tenderness. There is guarding. Musculoskeletal: General: Normal range of motion. Cervical back: Neck supple. Right lower leg: No edema. Left lower leg: No edema. Lymphadenopathy: Cervical: No cervical adenopathy. Skin: General: Skin is warm and dry. Coloration: Skin is pale. Findings: Rash (History of psoriasis) present. Neurological: Mental Status: She is alert and oriented to person, place, and time. Cranial Nerves: No cranial nerve deficit. Medications Scheduled: ciprofloxacin, 400 mg, intravenous, Q24H heparin (porcine), 5,000 Units, subcutaneous, Q8H [facility] insulin glargine, 15 Units, subcutaneous, BID insulin lispro, 2-10 Units, subcutaneous, TID with meals insulin lispro, 2-8 Units, subcutaneous, Nightly pantoprazole, 40 mg, intravenous, Q24H [facility] scopolamine, 1 patch, transdermal, Q72H [COMPLETED] Consult PICC nurse - PICC, , , Once AND sodium chloride, 20 mL, intravenous, Q12H AND sodium chloride, 20 mL, intravenous, PRN AND sodium chloride, 40 mL, intravenous, PRN sodium chloride, 3 mL, intravenous, Q12H [facility] Infusions: dextrose 5 % and sodium chloride 0.9 % with KCl 20 mEq/L, 250 mL/hr, Last Rate: Stopped (05/29/24 1437) sodium chloride 0.9 %, 100 mL/hr, Last Rate: 100 mL/hr (05/30/24 0237) As Needed: acetaminophen alum-mag hydroxide-simeth calcium gluconate calcium gluconate calcium gluconate dextrose dextrose 5 % and sodium chloride 0.9 % with KCl 20 mEq/L dextrose 50 % in water (D50W) glucagon (human recombinant) magnesium sulfate magnesium sulfate melatonin ondansetron potassium chloride OR potassium chloride OR potassium chloride IV (Adult) prochlorperazine OR prochlorperazine OR prochlorperazine sennosides-docusate sodium sodium phosphate IV OR [DISCONTINUED] sodium phosphate IV - central line OR sod phos di, mono-K phos mono sodium chloride [COMPLETED] Consult PICC nurse - PICC AND sodium chloride AND sodium chloride AND sodium chloride sodium chloride sodium phosphate IV - central line Allergies: Penicillins, Shellfish containing products, and Shellfish derived Code Status: Full Code Labs Recent Results (from the past 24 hours) Bedside Glucose *Place/Obtain serum glucose if >500(>600 [facility]) per glucometer. Collection Time: 05/29/24 4:30 PM Result Value Ref Range Bedside glucose 249 (H) 65 - 99 mg/dL Urinalysis Collection Time: 05/29/24 4:38 PM Result Value Ref Range Color YELLOW YELLOW^YELLOW Turbidity HAZY (A) CLEAR^CLEAR Specific gravity 1.025 1.003 - 1.035 Nitrite Negative Negative^Negative Ph urine 6.0 5.0 - 8.5 Leukocyte esterase Trace (A) Negative^Negative Protein Trace (A) Negative^Negative mg/dL Glucose, Ur >1,000 (A) Negative^Negative mg/dL Ketones urine >80 (A) Negative^Negative mg/dL Urobilinogen 0.2 <1.1 eu/dL Bilirubin, urine Negative Negative^Negative Hemoglobin Trace (A) Negative^Negative WBC >100 (H) 0 - 5 /hpf RBC 2 0 - 5 /hpf Squamous epithelium 2 0 - 5 /hpf WBC clumps RARE (A) NONE^NONE Bedside Glucose *Place/Obtain serum glucose if >500(>600 [facility]) per glucometer. Collection Time: 05/29/24 5:52 PM Result Value Ref Range Bedside glucose 318 (H) 65 - 99 mg/dL Potassium Collection Time: 05/29/24 6:30 PM Result Value Ref Range Potassium, Bld 3.0 (L) 3.5 - 5.0 mmol/L Magnesium Collection Time: 05/29/24 6:30 PM Result Value Ref Range Magnesium 2.0 1.8 - 2.6 mg/dL Bedside Glucose *Place/Obtain serum glucose if >500(>600 [facility]) per glucometer. Collection Time: 05/29/24 7:58 PM Result Value Ref Range Bedside glucose 336 (H) 65 - 99 mg/dL Electrolyte panel Collection Time: 05/29/24 8:19 PM Result Value Ref Range Sodium 143 134 - 146 mmol/L Potassium, Bld 3.4 (L) 3.5 - 5.0 mmol/L Chloride 114 (H) 98 - 109 mmol/L CO2 21 (L) 22 - 32 mmol/L Anion gap 8 5 - 15 mmol/L Bedside Glucose *Place/Obtain serum glucose if >500(>600 [facility]) per glucometer. Collection Time: 05/29/24 9:43 PM Result Value Ref Range Bedside glucose 287 (H) 65 - 99 mg/dL Potassium Collection Time: 05/30/24 2:30 AM Result Value Ref Range Potassium, Bld 3.2 (L) 3.5 - 5.0 mmol/L Bedside Glucose *Place/Obtain serum glucose if >500(>600 [facility]) per glucometer. Collection Time: 05/30/24 2:33 AM Result Value Ref Range Bedside glucose 148 (H) 65 - 99 mg/dL Comprehensive metabolic panel Collection Time: 05/30/24 5:15 AM Result Value Ref Range Sodium 142 134 - 146 mmol/L Potassium, Bld 3.1 (L) 3.5 - 5.0 mmol/L Chloride 112 (H) 98 - 109 mmol/L CO2 25 22 - 32 mmol/L Anion gap 5 5 - 15 mmol/L BUN 6 5 - 23 mg/dL Creatinine 0.41 0.40 - 1.00 mg/dL Glucose 129 (H) 65 - 99 mg/dL Calcium 7.4 (L) 8.5 - 10.5 mg/dL Total Protein 5.4 (L) 6.0 - 8.0 g/dL Albumin 2.9 (L) 3.2 - 5.3 g/dL Alkaline Phosphatase 61 39 - 130 U/L AST 28 0 - 41 U/L ALT 34 (H) 0 - 31 U/L Total bilirubin 0.6 0.3 - 1.2 mg/dL eGFR (CKD-EPI)non-race dependent >90 >59 ml/min/1.73sq.m Magnesium Collection Time: 05/30/24 5:15 AM Result Value Ref Range Magnesium 2.1 1.8 - 2.6 mg/dL CBC auto differential Collection Time: 05/30/24 5:15 AM Result Value Ref Range White Blood Cells 7.9 4.0 - 11.0 X10E9/L RBC count 3.58 (L) 3.80 - 5.20 X10E12/L Hemoglobin 9.4 (L) 11.7 - 15.5 g/dL Hematocrit 27.6 (L) 35 - 47 % MCV 77 (L) 80 - 100 fL MCH 26.2 (L) 27 - 34 pg MCHC 34.0 32 - 36 g/dL RDW 14.6 11.5 - 15.0 % Platelets 205 150 - 450 X10E9/L MPV 7.9 7 - 12 fL % neutrophils 65.6 % % lymphocytes 26.4 % % monocytes 7.6 % % eosinophils 0.1 % % Basophils 0.3 % Neutrophils Absolute (A) 5.2 1.5 - 6.6 X10E9/L Lymphocytes Absolute 2.1 1.0 - 3.5 X10E9/L Monocytes Absolute 0.6 0 - 0.9 X10E9/L Eosinophils Absolute 0.0 0.0 - 0.4 X10E9/L Basophils Absolute 0.0 0.0 - 0.2 X10E9/L Bedside Glucose *Place/Obtain serum glucose if >500(>600 [facility]) per glucometer. Collection Time: 05/30/24 12:07 PM Result Value Ref Range Bedside glucose 211 (H) 65 - 99 mg/dL Radiology No results found. HOSPITAL PROBLEM LIST Principal Problem: Diabetic ketoacidosis without coma associated with type 1 diabetes mellitus ([facility]) ASSESSMENT & PLAN Diabetic ketoacidosis without coma associated with type 1 diabetes -Discontinue Insulin infusion -Lantus 15 units b.i.d., ACHS sliding scale coverage as well. -continue normal saline for hydration due to decreased oral intake -beta hydroxybutyrate 11.28 -white blood cell from 27.7 to 7.9 today -anion gap 26 on admission, currently 5 -CO2 23 today, from 7 -pH 7.039 yesterday- recheck VBG pH of 7.38 - continue IV Protonix daily - p.r.n. Zofran -scopolamine patch ordered Acute cystitis -CT abdomen ordered-suggesting cystitis -urinalysis completed, and urine culture in process -will start on ciprofloxacin due to penicillin/sulfa allergy -check EKG, risk for QT prolongation Hypokalemia/hypocalcemia/hypomagn esemia/hypophosphatemia -replacement scales ordered -recheck phos today DC planning: home when stable. 1-2 days likely JOANNA Rankin 05/30/2024 1:21 PM [facility] Internal Medicine 7AM-7PM (all facilities): EpicChat or page through [employer]. 7PM-7AM ([facility], [facility] Psychiatry and Inpatient Rehab): EpicChat or page, [phone]. 7PM-7AM ([place], [place], [place], [place] and [facility] Rehab): EpicChat or page through [email or web address]. JOANNA Rankin 05/29/24 1412 Patient seen and examined Interviewed and any questions answered All labs , xrays reviewed Clinical assessment and decisions made by myself in entirety Discussed case with team Agree with above assessment and plan Electronically signed by: ANJELICA GERARDO MD, 05/30/2024 1:21 PM [facility] [address] [place] [address] (P): [phone] (F): [phone] JOANNA Rankin 05/30/24 1328 Patient seen and examined Interviewed and any questions answered All labs , xrays reviewed Clinical assessment and decisions made by myself in entirety Discussed case with team Agree with above assessment and plan Electronically signed by: ANJELICA GERARDO MD, 05/30/2024 1:58 PM [facility] [address] [place] [address] (P): [phone] (F): [phone] Images from the original note were not included. [facility] INTERNAL MEDICINE [facility] - ACUTE CARE [address] [id number] Hospital Medicine Progress Note Patient: Douglas Cordova Date of : 1995 Room: 216/ PCP: [facility] Admission date: 05/27/2024 1:36 PM Encounter date: 05/29/24 Hospital Day: 3 SUBJECTIVE Chief complaints: Chief Complaint Patient presents with High Blood Sugar - Symptomatic Pt left ama from [facility]. Came here with High Blood Sugar. States has been off of her pump since this am. Interval History: Status: improved. No overnight events or new complaints. Continues to complain of abdominal pain and nausea and vomiting. Review of Systems Constitutional: Positive for diaphoresis and fatigue. Negative for chills and fever. HENT: Negative for congestion, ear pain and sore throat. Eyes: Negative for pain and visual disturbance. Respiratory: Negative for cough, chest tightness and shortness of breath. Cardiovascular: Negative for chest pain and palpitations. Gastrointestinal: Positive for nausea and vomiting. Negative for abdominal pain. Genitourinary: Negative for difficulty urinating, dysuria, flank pain and hematuria. Musculoskeletal: Negative for arthralgias and back pain. Skin: Negative for color change and rash. Neurological: Negative for dizziness, seizures, syncope and light-headedness. Psychiatric/Behavioral: Positive for agitation. All other systems reviewed and are negative. OBJECTIVE BP 154/89 Pulse 98 Temp 36.8 C (98.3 F) (Oral) Resp 16 Ht 170.2 cm (5' 7 ) Wt 78 kg (171 lb 15.3 oz) LMP 05/19/2024 SpO2 98% BMI 26.93 kg/m Temp: [36.1 C (97 F)-36.8 C (98.3 F)] 36.8 C (98.3 F) Pulse: [98-116] 98 Resp: [16-18] 16 BP: (139-178)/(69-94) 154/89 SpO2: [97 %-99 %] 98 % O2 Device: None (Room air) Intake/Output Summary (Last 24 hours) at 05/29/2024 0802 Last data filed at 05/29/2024 0717 Gross per 24 hour Intake 232.81 ml Output 850 ml Net -617.19 ml Physical Exam Vitals and nursing note reviewed. Constitutional: Appearance: She is well-developed. She is ill-appearing. HENT: Head: Normocephalic and atraumatic. Nose: Nose normal. Mouth/Throat: Mouth: Mucous membranes are dry. Comments: Appears hoarse from vomiting Eyes: Pupils: Pupils are equal, round, and reactive to light. Cardiovascular: Rate and Rhythm: Normal rate and regular rhythm. Heart sounds: Normal heart sounds. No murmur heard. Pulmonary: Effort: Pulmonary effort is normal. No respiratory distress. Breath sounds: Normal breath sounds. No wheezing. Abdominal: General: Bowel sounds are normal. Palpations: Abdomen is soft. Tenderness: There is abdominal tenderness. There is guarding. Musculoskeletal: General: Normal range of motion. Cervical back: Neck supple. Right lower leg: No edema. Left lower leg: No edema. Lymphadenopathy: Cervical: No cervical adenopathy. Skin: General: Skin is warm and dry. Coloration: Skin is pale. Findings: Rash (History of psoriasis) present. Neurological: Mental Status: She is alert and oriented to person, place, and time. Cranial Nerves: No cranial nerve deficit. Medications Scheduled: heparin (porcine), 5,000 Units, subcutaneous, Q8H [facility] pantoprazole, 40 mg, intravenous, Q24H [facility]ARA [COMPLETED] Consult PICC nurse - PICC, , , Once AND sodium chloride, 20 mL, intravenous, Q12H AND sodium chloride, 20 mL, intravenous, PRN AND sodium chloride, 40 mL, intravenous, PRN sodium chloride, 3 mL, intravenous, Q12H [facility] Infusions: dextrose 5 % and sodium chloride 0.9 % with KCl 20 mEq/L, 250 mL/hr, Last Rate: 250 mL/hr (05/29/24 0626) insulin regular, 0.2-54 Units/hr, Last Rate: 3 Units/hr (05/29/24 0717) As Needed: acetaminophen alum-mag hydroxide-simeth calcium gluconate calcium gluconate calcium gluconate dextrose dextrose 5 % and sodium chloride 0.9 % with KCl 20 mEq/L dextrose 50 % in water (D50W) glucagon (human recombinant) magnesium sulfate magnesium sulfate ondansetron potassium chloride OR potassium chloride OR potassium chloride IV (Adult) sennosides-docusate sodium sodium phosphate IV OR sodium phosphate IV - central line OR sod phos di, mono-K phos mono [COMPLETED] Consult PICC nurse - PICC AND sodium chloride AND sodium chloride AND sodium chloride sodium chloride Allergies: Penicillins, Shellfish containing products, and Shellfish derived Code Status: Full Code Labs Recent Results (from the past 24 hours) Electrolyte panel Collection Time: 05/28/24 8:10 AM Result Value Ref Range Sodium 143 134 - 146 mmol/L Potassium, Bld 3.6 3.5 - 5.0 mmol/L Chloride 121 (H) 98 - 109 mmol/L CO2 15 (L) 22 - 32 mmol/L Anion gap 7 5 - 15 mmol/L Bedside Glucose *Place/Obtain serum glucose if >500(>600 MR[facility]) per glucometer. Collection Time: 05/28/24 8:44 AM Result Value Ref Range Bedside glucose 133 (H) 65 - 99 mg/dL Bedside Glucose *Place/Obtain serum glucose if >500(>600 MR[facility]) per glucometer. Collection Time: 05/28/24 9:53 AM Result Value Ref Range Bedside glucose 109 (H) 65 - 99 mg/dL Bedside Glucose *Place/Obtain serum glucose if >500(>600 MR[facility]) per glucometer. Collection Time: 05/28/24 11:06 AM Result Value Ref Range Bedside glucose 110 (H) 65 - 99 mg/dL Electrolyte panel Collection Time: 05/28/24 12:00 PM Result Value Ref Range Sodium 144 134 - 146 mmol/L Potassium, Bld 4.8 3.5 - 5.0 mmol/L Chloride 121 (H) 98 - 109 mmol/L CO2 15 (L) 22 - 32 mmol/L Anion gap 8 5 - 15 mmol/L Bedside Glucose *Place/Obtain serum glucose if >500(>600 MR[facility]) per glucometer. Collection Time: 05/28/24 12:32 PM Result Value Ref Range Bedside glucose 119 (H) 65 - 99 mg/dL Bedside Glucose *Place/Obtain serum glucose if >500(>600 MR[facility]) per glucometer. Collection Time: 05/28/24 1:32 PM Result Value Ref Range Bedside glucose 128 (H) 65 - 99 mg/dL Bedside Glucose *Place/Obtain serum glucose if >500(>600 MR[facility]) per glucometer. Collection Time: 05/28/24 2:38 PM Result Value Ref Range Bedside glucose 158 (H) 65 - 99 mg/dL Bedside Glucose *Place/Obtain serum glucose if >500(>600 MR[facility]) per glucometer. Collection Time: 05/28/24 3:33 PM Result Value Ref Range Bedside glucose 121 (H) 65 - 99 mg/dL Bedside Glucose *Place/Obtain serum glucose if >500(>600 MR[facility]) per glucometer. Collection Time: 05/28/24 5:41 PM Result Value Ref Range Bedside glucose 133 (H) 65 - 99 mg/dL Bedside Glucose *Place/Obtain serum glucose if >500(>600 MR[facility]) per glucometer. Collection Time: 05/28/24 7:04 PM Result Value Ref Range Bedside glucose 167 (H) 65 - 99 mg/dL Electrolyte panel Collection Time: 05/28/24 8:08 PM Result Value Ref Range Sodium 146 134 - 146 mmol/L Potassium, Bld 3.8 3.5 - 5.0 mmol/L Chloride 117 (H) 98 - 109 mmol/L CO2 16 (L) 22 - 32 mmol/L Anion gap 13 5 - 15 mmol/L Bedside Glucose *Place/Obtain serum glucose if >500(>600 [facility]) per glucometer. Collection Time: 05/28/24 8:10 PM Result Value Ref Range Bedside glucose 183 (H) 65 - 99 mg/dL Bedside Glucose *Place/Obtain serum glucose if >500(>600 [facility]) per glucometer. Collection Time: 05/28/24 9:22 PM Result Value Ref Range Bedside glucose 245 (H) 65 - 99 mg/dL Electrolyte panel Collection Time: 05/28/24 11:52 PM Result Value Ref Range Sodium 146 134 - 146 mmol/L Potassium, Bld 3.1 (L) 3.5 - 5.0 mmol/L Chloride 118 (H) 98 - 109 mmol/L CO2 21 (L) 22 - 32 mmol/L Anion gap 7 5 - 15 mmol/L Bedside Glucose *Place/Obtain serum glucose if >500(>600 MR[facility]) per glucometer. Collection Time: 05/29/24 12:02 AM Result Value Ref Range Bedside glucose 144 (H) 65 - 99 mg/dL Bedside Glucose *Place/Obtain serum glucose if >500(>600 [facility]) per glucometer. Collection Time: 05/29/24 1:05 AM Result Value Ref Range Bedside glucose 117 (H) 65 - 99 mg/dL Bedside Glucose *Place/Obtain serum glucose if >500(>600 [facility]) per glucometer. Collection Time: 05/29/24 2:22 AM Result Value Ref Range Bedside glucose 54 (L) 65 - 99 mg/dL Bedside Glucose *Place/Obtain serum glucose if >500(>600 [facility]) per glucometer. Collection Time: 05/29/24 3:06 AM Result Value Ref Range Bedside glucose 100 (H) 65 - 99 mg/dL Bedside Glucose *Place/Obtain serum glucose if >500(>600 [facility]) per glucometer. Collection Time: 05/29/24 3:48 AM Result Value Ref Range Bedside glucose 100 (H) 65 - 99 mg/dL Bedside Glucose *Place/Obtain serum glucose if >500(>600 [facility]) per glucometer. Collection Time: 05/29/24 4:52 AM Result Value Ref Range Bedside glucose 135 (H) 65 - 99 mg/dL Bedside Glucose *Place/Obtain serum glucose if >500(>600 [facility]) per glucometer. Collection Time: 05/29/24 6:17 AM Result Value Ref Range Bedside glucose 81 65 - 99 mg/dL Comprehensive metabolic panel Collection Time: 05/29/24 6:20 AM Result Value Ref Range Sodium 148 (H) 134 - 146 mmol/L Potassium, Bld 2.8 (L) 3.5 - 5.0 mmol/L Chloride 119 (H) 98 - 109 mmol/L CO2 22 22 - 32 mmol/L Anion gap 7 5 - 15 mmol/L BUN 10 5 - 23 mg/dL Creatinine 0.51 0.40 - 1.00 mg/dL Glucose 97 65 - 99 mg/dL Calcium 8.1 (L) 8.5 - 10.5 mg/dL Total Protein 6.3 6.0 - 8.0 g/dL Albumin 3.4 3.2 - 5.3 g/dL Alkaline Phosphatase 63 39 - 130 U/L AST 48 (H) 0 - 41 U/L ALT 36 (H) 0 - 31 U/L Total bilirubin 0.3 0.3 - 1.2 mg/dL eGFR (CKD-EPI)non-race dependent >90 >59 ml/min/1.73sq.m Magnesium Collection Time: 05/29/24 6:20 AM Result Value Ref Range Magnesium 1.5 (L) 1.8 - 2.6 mg/dL CBC auto differential Collection Time: 05/29/24 6:20 AM Result Value Ref Range White Blood Cells 13.1 (H) 4.0 - 11.0 X10E9/L RBC count 4.12 3.80 - 5.20 X10E12/L Hemoglobin 10.6 (L) 11.7 - 15.5 g/dL Hematocrit 31.8 (L) 35 - 47 % MCV 77 (L) 80 - 100 fL MCH 25.8 (L) 27 - 34 pg MCHC 33.4 32 - 36 g/dL RDW 14.3 11.5 - 15.0 % Platelets 286 150 - 450 X10E9/L MPV 7.9 7 - 12 fL % neutrophils 87.2 % % lymphocytes 7.0 % % monocytes 5.7 % % eosinophils 0.0 % % Basophils 0.1 % Neutrophils Absolute (A) 11.4 (H) 1.5 - 6.6 X10E9/L Lymphocytes Absolute 0.9 (L) 1.0 - 3.5 X10E9/L Monocytes Absolute 0.8 0 - 0.9 X10E9/L Eosinophils Absolute 0.0 0.0 - 0.4 X10E9/L Basophils Absolute 0.0 0.0 - 0.2 X10E9/L Bedside Glucose *Place/Obtain serum glucose if >500(>600 MR[facility]) per glucometer. Collection Time: 05/29/24 7:12 AM Result Value Ref Range Bedside glucose 94 65 - 99 mg/dL Radiology No results found. HOSPITAL PROBLEM LIST Principal Problem: Diabetic ketoacidosis without coma associated with type 1 diabetes mellitus ([facility]) ASSESSMENT & PLAN Diabetic ketoacidosis without coma associated with type 1 diabetes -Discontinue Insulin infusion, Lantus ordered however patient was hypoglycemic at 73 nurse instructed to recheck sugar in an hour. -clear liquid diet, with strict carb controlled however patient is tolerating very little oral intake -start normal saline for hydration due to decreased oral intake -electrolyte panel every 8 hours -beta hydroxybutyrate 11.28 -white blood cell from 27.7 to 13.1 today -anion gap 26 on admission, currently 7 -CO2 23 today, from 7 -pH 7.039 yesterday- recheck VBG pH of 7.38 - continue IV Protonix daily - p.r.n. Zofran -scopolamine patch ordered Acute cystitis -CT abdomen ordered-suggesting cystitis -urinalysis and urine culture pending -will start on ciprofloxacin due to penicillin/sulfa allergy -check EKG, risk for QT prolongation Hypokalemia/hypocalcemia/hypomagn esemia/hypophosphatemia -replacement scales ordered -q4 checks while on insulin gtt DC planning: home when stable. Ruby Vicente APRN-DANIEL 05/29/2024 8:02 AM [facility] 7AM-7PM (all facilities): EpicAmber or page through [employer]. 7PM-7AM ([facility], [facility]): EpicAmber or kelsey, [phone]. 7PM-7AM ([facility], [place], [place] and [facility] Rehab): EpicAmber or page through [employer]. Ruby Vicente APRN-DANIEL 05/29/24 1419 Patient seen and examined Interviewed and any questions answered All labs , xrays reviewed Clinical assessment and decisions made by myself in entirety Discussed case with team Agree with above assessment and plan Electronically signed by: ANJELICA GERARDO MD, 05/29/2024 4:42 PM [facility] [employer] [address] [facility] [place] [address] (P): [phone] (F): [phone] documented in this encounter [facility] 05-29-2024 Plan of care note Problem: Safety Goal: Patient will be injury free during hospitalization Description: INTERVENTIONS: 1. Assess patient's risk for falls and implement fall prevention plan of care per policy 2. Provide and maintain a safe environment 3. Proper use of double Identifiers 4. Medication administration using the 5 rights 5. Hand hygiene 6. Specimens are labeled at the bedside 7. Instruct patient/ patient veterans employment representative about use of safety devices 8. Include patient/ patient veterans employment representative in decisions related to safety Outcome: Not Progressing Note: Evaluation of progress towards goal: Pt non compliant. Refuses no skid socks. Problem: Knowledge Deficit Goal: Patient/patient veterans employment representative demonstrates understanding of disease process, treatment plan, medications, and discharge instructions Description: INTERVENTIONS 1. Complete learning assessment and assess knowledge base 2. Provide teaching at level of understanding 3. Provide teaching via preferred learning method(s) Note: Evaluation of progress towards goal: Pt non compliant with treatment plan. Pt refuses tele monitor. Problem: Gastrointestinal - Adult Goal: Minimal or absence of nausea and vomiting Description: INTERVENTIONS: 1. Administer IV fluids as ordered to ensure adequate hydration 2. Maintain NPO status as ordered until nausea and vomiting are resolved 3. Nasogastric tube to suction as ordered 4. Administer ordered antiemetic medications as needed 5. Provide nonpharmacologic comfort measures as appropriate 6. Advance diet as tolerated, if ordered 7. Nutrition consult to assist patient with adequate nutrition and appropriate food choices Outcome: Not Progressing Note: Evaluation of progress towards goal: Pt still reports nausea and vomiting. States zofran does not provide relief. Problem: Metabolic/Fluid and Electrolytes - Adult Goal: Electrolytes maintained within normal limits Description: INTERVENTIONS 1. Monitor for signs and symptoms of hypovolemia (tachycardia, rapid breathing, decreased urine output, postural hypotension, sunken fontanel) 2. Monitor for signs and symptoms of hypervolemia (strong rapid pulse, rapid breathing, crackles heard in lung mckee, edema, decreased urine output, sudden weight gain, distended neck veins in older children, enlarged liver and spleen) 1. Monitor intake and output 2. Monitor pt's weight 1. Monitor labs and assess patient for signs and symptoms of electrolyte imbalances 2. Administer electrolyte replacement as ordered 3. Monitor response to electrolyte replacements, including repeat lab results as appropriate 4. Fluid restriction or hydration as ordered 5. Instruct patient/ legal veterans employment representative on nutrition/diet; fluid/hydration restrictions as appropriate Outcome: Progressing Note: Evaluation of progress towards goal: Electrolytes replaced per orders. [facility] 05-29-2024 Plan of care note Problem: Infection Goal: Absence of infection during [...] technique 7. Identify and instruct patient/patient veterans employment representative in use of appropriate isolation precautions for identified infection/symptoms 8. Provide and discuss with patient/patient veterans employment representative on educational MDRO sheet 9. Encourage and monitor nutritional status daily and consult animal technician if indicated 10. Implement neutropenic guidelines as needed 11. Review exposure to history of communicable disease and recent travel history on admission 12. Encourage annual influenza vaccine 13. Encourage pneumonia vaccine Outcome: Progressing Note: Evaluation of progress towards goal: pt educated on treatment plan, will continue to update pt prn. [facility] 05-29-2024 Procedure note Summary: PICC Placement Images from the original note were not included. PICC line placement note: Dynamic distance learning coordinator: Jg Mcnair RN Prescribed IV therapy: Insulin, electrolytes, History / Labs / Allergies were reviewed prior to insertion Any contraindications/considerations prior to placement: RUE PIV infiltration Approvals required before insertion: none Bedside time out performed with nurse Guillermina WOLFF utilizing two identifiers Consent completed by Douglas Cordova and is located in the chart. PICC: Product type: 5 fr double Bard PowerPICC inserted into the left brachial vein Ref: [id number] Lot: [id number] Exp: 02/27/25 Trimmed at 36 cm with 2 cm external Number of attempts: 1 Dressed per protocol with statlock and CHG tegaderm Lidocaine used during procedure: intradermal administration conc 1% approximately 1mL Lot #: [id number] Exp: 03/29/26 Guillermina RN aware PICC placed with ECG technology and is confirmed in the distal 1/3 SVC. PICC is immediately released for use. RN aware new IV tubing is required. DL PICC placed for access. Pt is on an insulin drip with electrolytes. Left arm used due to a significant PIV infiltration in the upper right arm. Upload picture of ECG tip location documentation. [facility] 05-29-2024 Procedure note Summary: PICC Placement Images from the original note were not included. PICC line placement note: Dynamic distance learning coordinator: Jg Mcnair RN Prescribed IV therapy: Insulin, electrolytes, History / Labs / Allergies were reviewed prior to insertion Any contraindications/considerations prior to placement: RUE PIV infiltration Approvals required before insertion: none Bedside time out performed with nurse Guillermina WOLFF utilizing two identifiers Consent completed by Douglas Cordova and is located in the chart. PICC: Product type: 5 fr double Bard PowerPICC inserted into the left brachial vein Ref: [id number] Lot: [id number] Exp: 02/27/25 Trimmed at 36 cm with 2 cm external Number of attempts: 1 Dressed per protocol with statlock and CHG tegaderm Lidocaine used during procedure: intradermal administration conc 1% approximately 1mL Lot #: [id number] Exp: 03/29/26 Guillermina RN aware PICC placed with ECG technology and is confirmed in the distal 1/3 SVC. PICC is immediately released for use. RN aware new IV tubing is required. DL PICC placed for access. Pt is on an insulin drip with electrolytes. Left arm used due to a significant PIV infiltration in the upper right arm. Upload picture of ECG tip location documentation. documented in this encounter [facility] 05-28-2024 Plan of care note Problem: Pain Goal: Patient goal is pain score less than 4, able to rest, and participant in treatment plan as appropriate Description: INTERVENTIONS: 1. Encourage patient or legal veterans employment representative to report early pain and ask [...] policy 9. Teach patient or legal veterans employment representative interventions for comforting Outcome: Not Progressing Note: Evaluation of progress towards goal: Patient refusing rest and recommendations, thus experiencing N/V. Problem: Safety Goal: Patient will be injury free during hospitalization Description: INTERVENTIONS: 1. Assess patient's risk for falls and implement fall prevention plan of care per policy 2. Provide and maintain a safe environment 3. Proper use of double Identifiers 4. Medication administration using the 5 rights 5. Hand hygiene 6. Specimens are labeled at the bedside 7. Instruct patient/ patient veterans employment representative about use of safety devices 8. Include patient/ patient veterans employment representative in decisions related to safety Outcome: Not Progressing Note: Evaluation of progress towards goal: Patient refuses to follow safety protocols at this time. Problem: Knowledge Deficit Goal: Patient/patient veterans employment representative demonstrates understanding of disease process, treatment plan, medications, and discharge instructions Description: INTERVENTIONS 1. Complete learning assessment and assess knowledge base 2. Provide teaching at level of understanding 3. Provide teaching via preferred learning method(s) Outcome: Not Progressing Note: Evaluation of progress towards goal: Patient refuses patient education at this time. [facility] 05-28-2024 Plan of care note Problem: Pain Goal: Patient goal is pain score less than 4, able to rest, and participant in treatment plan as appropriate Description: INTERVENTIONS: 1. Encourage patient or legal veterans employment representative to report early pain and ask [...] policy 9. Teach patient or legal veterans employment representative interventions for comforting Outcome: Not Progressing Note: Evaluation of progress towards goal: Pt refuses to stay out of shower, continually drinks water while in shower, thus constantly exhibiting N/V. Problem: Safety Goal: Patient will be injury free during hospitalization Description: INTERVENTIONS: 1. Assess patient's risk for falls and implement fall prevention plan of care per policy 2. Provide and maintain a safe environment 3. Proper use of double Identifiers 4. Medication administration using the 5 rights 5. Hand hygiene 6. Specimens are labeled at the bedside 7. Instruct patient/ patient veterans employment representative about use of safety devices 8. Include patient/ patient veterans employment representative in decisions related to safety Outcome: Not Progressing Note: Evaluation of progress towards goal: Pt refuses to follow safety guidelines at this time. Problem: Knowledge Deficit Goal: Patient/patient veterans employment representative demonstrates understanding of disease process, treatment plan, medications, and discharge instructions Description: INTERVENTIONS 1. Complete learning assessment and assess knowledge base 2. Provide teaching at level of understanding 3. Provide teaching via preferred learning method(s) Outcome: Not Progressing Note: Evaluation of progress towards goal: Pt refuses education at this time. Will continue to attempt pt education when able to pt receptive. [facility] 05-28-2024 Progress note Formatting of t his note is different from the original. Images from the original note were not included. DISCHARGE PLANNING NOTE 05/28/24 0906 Discharge Disposition Discharge Disposition Home with Self Care County Information [place] [facility] Patient Information Primary Caregiver Self Support System Immediate family;Extended family;Friends (mom, grandmother) Stressors Type of stressor (does not endorse) Income Information Income Information Employed ([employer]) Referral To Community Resources Denies needs Discharge Planning Living Arrangements Family members (with grandmother) Support Systems Parent;Family members;Children;Friends Assistance Needed pt reports she is indepedent with adls/iadls Type of Residence Private residence Private Residence [address] [place] [address] Accessibility Steps into home Home Care Services No Patient expects to be discharged to: home Does the patient need discharge transport arranged? No Services Requested: Services Requested Patient expects to be discharged to:: home Discharge Disposition: Home with self care Initial DC Assessment Completed: Yes DC Planning Complete Discharge Milestones: Yes Patient Goals: Patient/Caregiver Goals Patient/Caregiver Goals: Home No Needs Home No Needs: Caregiver/Family Goals home (pt-stated) Evaluation of progress towards goal: not feeling better yet, encouraged pt to follow Chart reviewed. Introduced self & role of SW, pt agreeable to conversation; assessment/goals as above. Pt does not endorse alcohol/substance use. Pt does not endorse food insecurity or financial stressors. Pt is able to afford home medications. Pt has functioning water, heat, cooling & electric in the home. Pt does not endorse any type of domestic abuse. Pt does not endorse anxiety, depression or other mental health concerns; negative [place] screen. Pt said she sees counselor at [facility]. Pt provides own transportation. Pt is independent in/out of the home, uses no assist devices. Pt relayed her mom, 2 children ages 8 & 12, grandmother, friends & family provide natural supports. Patient's preferred pharmacy is [facility]. 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 Pt reports she is independent, pt does not endorse any at this time. Opportunity provided to ask questions, pt does not endorse any at this time. Encouraged pt to follow recommendations for diet/intake and showering due to monitoring equipment. Plan to prevent readmission is for pt to follow up with PCP, pt prefers to make own appointment, pt said she has appointment with Dr. Galloway scheduled, follow DC instructions including medication compliance and to reach out to health care team as needed. Care Navigation will continue to follow patient progress to determine appropriate safe care transition needs. [facility] 05-28-2024 Nurse Note Pt refuses to stay out of shower and keep learning program manager on. [facility] 05-28-2024 History and physical note Images from the original note were not included. [facility] [address] [facility] [id number] Hospital Medicine History & Physical Patient: Douglas Cordova Date of : 1995 Room: 216/01 PCP: [facility] Admission date: 05/27/2024 1:36 PM Encounter date: 05/28/24 Hospital Day: 2 SUBJECTIVE Douglas Cordova is a 28 y.o. female who presents with elevated blood sugar. Patient has a history of type 1 diabetes. She was recently seen at [facility] but reports she was forced to leave d/t taking a shower. Upon admission patient appeared to be in DKA. Blood sugar was in the 400s, Anion gap was 16 patient was acidotic per arterial blood gas. She was started on insulin drip as well as normal saline with 20 mEq of potassium. White blood cell count 27.7. Beta hydroxybutyrate 11.28. Drug screen negative. Patient seen and examined this morning at bedside. Patient continues to complain of abdominal pain as well as vomiting. She is requesting a diet, we will start patient on clear liquid diet with very strict carb controlled. Allergies: Penicillins, Shellfish containing products, and Shellfish derived Prior to Admission medications Medication Sig Start Date End Date Taking? Authorizing Provider insulin glargine (LANTUS, SEMGLEE) 100 unit/mL (3 mL) insulin pen Inject 20 Units under the skin in the morning and 20 Units before bedtime. 07/04/23 Yes Ronal Logan MD insulin lispro (HumaLOG) 100 unit/mL injection Take 2 units per 15 grams of carbohydrates up to 10 units per 75 grams of carbohydrates within 15 minutes of finishing meals together with correction insulin when needed. Patient taking differently: 1 ml (10 units) per carb 07/09/18 Yes Maxine Baez MD Code Status: Full Code Past Medical History: Patient has a past medical history of Anxiety, Asthma, Depression, Diabetes mellitus type I ([facility]), DM type 1 (diabetes mellitus, type 1) ([facility]), Genital herpes, GERD (gastroesophageal reflux disease), Herpes genitalis, Psoriasis, and Visual impairment. Past Surgical History: Patient has a past surgical history that includes section (2). Family History: Patient's family history includes Bladder dysfunction in her mother; Diabetes in her mother; Multiple sclerosis in her mother; Psoriasis in her mother. Social History: Patient reports that she has been smoking cigarettes. She has never used smokeless tobacco. She reports that she does not currently use drugs after having used the following drugs: Methamphetamines. She reports that she does not drink alcohol. Review of Systems Constitutional: Positive for diaphoresis and fatigue. Negative for chills and fever. HENT: Negative for congestion, ear pain and sore throat. Eyes: Negative for pain and visual disturbance. Respiratory: Negative for cough, chest tightness and shortness of breath. Cardiovascular: Negative for chest pain and palpitations. Gastrointestinal: Positive for nausea and vomiting. Negative for abdominal pain. Genitourinary: Negative for difficulty urinating, dysuria, flank pain and hematuria. Musculoskeletal: Negative for arthralgias and back pain. Skin: Negative for color change and rash. Neurological: Negative for dizziness, seizures, syncope and light-headedness. Psychiatric/Behavioral: Positive for agitation. All other systems reviewed and are negative. OBJECTIVE BP 141/89 Pulse 107 Temp 36.8 C (98.3 F) (Oral) Resp 18 Ht 170.2 cm (5' 7 ) Wt 78 kg (171 lb 15.3 oz) LMP 05/19/2024 SpO2 99% BMI 26.93 kg/m Temp: [36.3 C (97.3 F)-36.9 C (98.4 F)] 36.8 C (98.3 F) Pulse: [94-136] 107 Resp: [18-22] 18 BP: (118-169)/(69-101) 141/89 SpO2: [95 %-100 %] 99 % O2 Device: None (Room air) Intake/Output Summary (Last 24 hours) at 05/28/2024 1208 Last data filed at 05/28/2024 0845 Gross per 24 hour Intake 3550.68 ml Output 2750 ml Net 800.68 ml Physical Exam Vitals and nursing note reviewed. Constitutional: Appearance: She is well-developed. She is ill-appearing. HENT: Head: Normocephalic and atraumatic. Nose: Nose normal. Mouth/Throat: Mouth: Mucous membranes are dry. Comments: Appears hoarse from vomiting Eyes: Pupils: Pupils are equal, round, and reactive to light. Cardiovascular: Rate and Rhythm: Normal rate and regular rhythm. Heart sounds: Normal heart sounds. No murmur heard. Pulmonary: Effort: Pulmonary effort is normal. No respiratory distress. Breath sounds: Normal breath sounds. No wheezing. Abdominal: General: Bowel sounds are normal. Palpations: Abdomen is soft. Tenderness: There is abdominal tenderness. There is guarding. Musculoskeletal: General: Normal range of motion. Cervical back: Neck supple. Right lower leg: No edema. Left lower leg: No edema. Lymphadenopathy: Cervical: No cervical adenopathy. Skin: General: Skin is warm and dry. Coloration: Skin is pale. Findings: Rash (History of psoriasis) present. Neurological: Mental Status: She is alert and oriented to person, place, and time. Cranial Nerves: No cranial nerve deficit. Medications Scheduled: heparin (porcine), 5,000 Units, subcutaneous, Q8H KYARA pantoprazole, 40 mg, intravenous, Q24H KYARA sodium chloride, 3 mL, intravenous, Q12H KYARA Infusions: dextrose 5 % in water, 100 mL/hr dextrose 5 % and sodium chloride 0.9 % with KCl 20 mEq/L, 250 mL/hr, Last Rate: 250 mL/hr (05/28/24 0813) insulin regular, 0.2-54 Units/hr, Last Rate: 10 Units/hr (05/28/24 1129) As Needed: acetaminophen alum-mag hydroxide-simeth dextrose dextrose 5 % in water dextrose 5 % and sodium chloride 0.9 % with KCl 20 mEq/L dextrose 50 % in water (D50W) glucagon (human recombinant) ondansetron potassium chloride OR potassium chloride OR potassium chloride IV (Adult) sennosides-docusate sodium sodium chloride Allergies: Penicillins, Shellfish containing products, and Shellfish derived Labs Recent Results (from the past 24 hours) Bedside Glucose *Place/Obtain serum glucose if >500(>600 MRH) per glucometer. Collection Time: 05/27/24 1:32 PM Result Value Ref Range Bedside glucose 418 (HH) 65 - 99 mg/dL CBC auto differential Collection Time: 05/27/24 1:47 PM Result Value Ref Range White Blood Cells 27.7 (H) 4.0 - 11.0 X10E9/L RBC count 5.05 3.80 - 5.20 X10E12/L Hemoglobin 13.1 11.7 - 15.5 g/dL Hematocrit 41.4 35 - 47 % MCV 82 80 - 100 fL MCH 26.0 (L) 27 - 34 pg MCHC 31.7 (L) 32 - 36 g/dL RDW 14.4 11.5 - 15.0 % Platelets 397 150 - 450 X10E9/L MPV 8.4 7 - 12 fL Band 4.0 % Seg neutrophil 88.0 % Lymphocyte 7.0 % Monocytes 1.0 % Neutrophils Absolute (M) 25.5 (H) 1.5 - 6.6 X10E9/L Lymphocytes Absolute 1.9 1.0 - 3.5 X10E9/L Monocytes Absolute 0.3 0 - 0.9 X10E9/L Ovalocytes 1+ (A) NONE^NONE Comprehensive metabolic panel Collection Time: 05/27/24 1:47 PM Result Value Ref Range Sodium 139 134 - 146 mmol/L Potassium, Bld 4.6 3.5 - 5.0 mmol/L Chloride 106 98 - 109 mmol/L CO2 7 (LL) 22 - 32 mmol/L Anion gap 26 (H) 5 - 15 mmol/L BUN 26 (H) 5 - 23 mg/dL Creatinine 1.16 (H) 0.40 - 1.00 mg/dL Glucose 469 (HH) 65 - 99 mg/dL Calcium 8.9 8.5 - 10.5 mg/dL Total Protein 8.4 (H) 6.0 - 8.0 g/dL Albumin 4.7 3.2 - 5.3 g/dL Alkaline Phosphatase 99 39 - 130 U/L AST 22 0 - 41 U/L ALT 31 0 - 31 U/L Total bilirubin 1.2 0.3 - 1.2 mg/dL eGFR (CKD-EPI)non-race dependent 65 >59 ml/min/1.73sq.m Lactate w/ Reflex Collection Time: 05/27/24 1:47 PM Result Value Ref Range Lactate w/ Reflex 1.5 0.4 - 2.0 mmol/L Lipase Collection Time: 05/27/24 1:47 PM Result Value Ref Range Lipase 36 17 - 40 U/L Magnesium Collection Time: 05/27/24 1:47 PM Result Value Ref Range Magnesium 2.1 1.8 - 2.6 mg/dL Acetone, (BetaHydroxybutyrate, Ketone) quantitative, serum Collection Time: 05/27/24 1:47 PM Result Value Ref Range Beta hydroxy buterate 11.28 (H) 0.02 - 0.27 mmol/L Blood gas, venous Collection Time: 05/27/24 1:53 PM Result Value Ref Range Sample Type VENOUS Body Temp 37.0 37.0 C pH, Venous 7.042 (L) 7.320 - 7.420 PCO2, Venous 22.2 (L) 35 - 50 MMHG PO2, Venous 37 30 - 50 MMHG Base,Deficit 23.0 (H) 0.0 - 2.0 MMOL/L Portable HCO3 6.0 (L) 20.0 - 24.0 MMOL/L % O2 Sat 49.0 (L) >80.0 % Cami's Test NA Sample Site N/A Oxygen Source RoomAir Bedside Glucose *Place/Obtain serum glucose if >500(>600 MRH) per glucometer. Collection Time: 05/27/24 3:27 PM Result Value Ref Range Bedside glucose 430 (HH) 65 - 99 mg/dL Drug Screen, Urine Collection Time: 05/27/24 3:35 PM Result Value Ref Range Amphetamine/methamphetamine Negative Negative^Negative Barbiturate Screen, Ur Negative Negative^Negative Benzodiazepine Screen, Urine Negative Negative^Negative THC, urine Negative Negative^Negative Cocaine (metabolite) Negative Negative^Negative Opiate Quant, Ur Negative Negative^Negative Phencyclidine Negative Negative^Negative Oxycodone Negative Negative^Negative Methadone Negative Negative^Negative Ecstasy Negative Negative^Negative POCT Nursing Urine Macroscopic UA Collection Time: 05/27/24 3:43 PM Result Value Ref Range Specific gravity NAZ 1.025 1.003 - 1.035 Leukocyte esterase NAZ Negative Negative^Negative Nitrite NAZ Negative Negative^Negative Ph 5.5 5.0 - 8.5 Protein NAZ 100 (A) Negative^Negative mg/dL Urine glucose NAZ 500 (A) Negative^Negative mg/dL Ketones NAZ >=160 (A) Negative^Negative mg/dL Urobilinogen NAZ 0.2 <1.1 eu/dL Bilirubin NAZ Small (A) Negative^Negative Hemoglobin NAZ MODERATE (A) Negative^Negative POCT , urine Collection Time: 05/27/24 3:45 PM Result Value Ref Range Nursing urine Negative Negative^Negative Bedside Glucose *Place/Obtain serum glucose if >500(>600 MRH) per glucometer. Collection Time: 05/27/24 4:47 PM Result Value Ref Range Bedside glucose 398 (H) 65 - 99 mg/dL Bedside Glucose *Place/Obtain serum glucose if >500(>600 MRH) per glucometer. Collection Time: 05/27/24 5:55 PM Result Value Ref Range Bedside glucose 367 (H) 65 - 99 mg/dL Electrolyte panel Collection Time: 05/27/24 6:09 PM Result Value Ref Range Sodium 139 134 - 146 mmol/L Potassium, Bld 4.1 3.5 - 5.0 mmol/L Chloride 110 (H) 98 - 109 mmol/L CO2 6 (LL) 22 - 32 mmol/L Anion gap 23 (H) 5 - 15 mmol/L Bedside Glucose *Place/Obtain serum glucose if >500(>600 MRH) per glucometer. Collection Time: 05/27/24 7:11 PM Result Value Ref Range Bedside glucose 302 (H) 65 - 99 mg/dL Bedside Glucose *Place/Obtain serum glucose if >500(>600 MRH) per glucometer. Collection Time: 05/27/24 7:55 PM Result Value Ref Range Bedside glucose 262 (H) 65 - 99 mg/dL Electrolyte panel Collection Time: 05/27/24 8:19 PM Result Value Ref Range Sodium 141 134 - 146 mmol/L Potassium, Bld 3.9 3.5 - 5.0 mmol/L Chloride 111 (H) 98 - 109 mmol/L CO2 7 (LL) 22 - 32 mmol/L Anion gap 23 (H) 5 - 15 mmol/L Bedside Glucose *Place/Obtain serum glucose if >500(>600 MRH) per glucometer. Collection Time: 05/27/24 8:56 PM Result Value Ref Range Bedside glucose 222 (H) 65 - 99 mg/dL Bedside Glucose *Place/Obtain serum glucose if >500(>600 MRH) per glucometer. Collection Time: 05/27/24 10:14 PM Result Value Ref Range Bedside glucose 204 (H) 65 - 99 mg/dL Electrolyte panel Collection Time: 05/27/24 10:40 PM Result Value Ref Range Sodium 138 134 - 146 mmol/L Potassium, Bld 3.9 3.5 - 5.0 mmol/L Chloride 111 (H) 98 - 109 mmol/L CO2 11 (L) 22 - 32 mmol/L Anion gap 16 (H) 5 - 15 mmol/L Bedside Glucose *Place/Obtain serum glucose if >500(>600 MRH) per glucometer. Collection Time: 05/27/24 11:41 PM Result Value Ref Range Bedside glucose 246 (H) 65 - 99 mg/dL Electrolyte panel Collection Time: 05/28/24 12:24 AM Result Value Ref Range Sodium 140 134 - 146 mmol/L Potassium, Bld 4.2 3.5 - 5.0 mmol/L Chloride 114 (H) 98 - 109 mmol/L CO2 12 (L) 22 - 32 mmol/L Anion gap 14 5 - 15 mmol/L Bedside Glucose *Place/Obtain serum glucose if >500(>600 MRH) per glucometer. Collection Time: 05/28/24 1:11 AM Result Value Ref Range Bedside glucose 247 (H) 65 - 99 mg/dL Bedside Glucose *Place/Obtain serum glucose if >500(>600 MRH) per glucometer. Collection Time: 05/28/24 2:10 AM Result Value Ref Range Bedside glucose 231 (H) 65 - 99 mg/dL Bedside Glucose *Place/Obtain serum glucose if >500(>600 MRH) per glucometer. Collection Time: 05/28/24 3:25 AM Result Value Ref Range Bedside glucose 178 (H) 65 - 99 mg/dL Comprehensive metabolic panel Collection Time: 05/28/24 4:23 AM Result Value Ref Range Sodium 142 134 - 146 mmol/L Potassium, Bld 3.8 3.5 - 5.0 mmol/L Chloride 117 (H) 98 - 109 mmol/L CO2 16 (L) 22 - 32 mmol/L Anion gap 9 5 - 15 mmol/L BUN 20 5 - 23 mg/dL Creatinine 0.73 0.40 - 1.00 mg/dL Glucose 145 (H) 65 - 99 mg/dL Calcium 8.7 8.5 - 10.5 mg/dL Total Protein 7.0 6.0 - 8.0 g/dL Albumin 4.0 3.2 - 5.3 g/dL Alkaline Phosphatase 76 39 - 130 U/L AST 27 0 - 41 U/L ALT 25 0 - 31 U/L Total bilirubin 0.6 0.3 - 1.2 mg/dL eGFR (CKD-EPI)non-race dependent >90 >59 ml/min/1.73sq.m Magnesium Collection Time: 05/28/24 4:23 AM Result Value Ref Range Magnesium 1.7 (L) 1.8 - 2.6 mg/dL CBC auto differential Collection Time: 05/28/24 4:23 AM Result Value Ref Range White Blood Cells 22.3 (H) 4.0 - 11.0 X10E9/L RBC count 4.38 3.80 - 5.20 X10E12/L Hemoglobin 11.4 (L) 11.7 - 15.5 g/dL Hematocrit 34.1 (L) 35 - 47 % MCV 78 (L) 80 - 100 fL MCH 26.0 (L) 27 - 34 pg MCHC 33.4 32 - 36 g/dL RDW 14.1 11.5 - 15.0 % Platelets 340 150 - 450 X10E9/L MPV 7.9 7 - 12 fL Band 1.9 % Seg neutrophil 89.4 % Lymphocyte 6.8 % Monocytes 1.9 % Neutrophils Absolute (M) 20.3 (H) 1.5 - 6.6 X10E9/L Lymphocytes Absolute 1.5 1.0 - 3.5 X10E9/L Monocytes Absolute 0.4 0 - 0.9 X10E9/L Teardrop 1+ (A) NONE^NONE Ovalocytes 2+ (A) NONE^NONE Bedside Glucose *Place/Obtain serum glucose if >500(>600 MRH) per glucometer. Collection Time: 05/28/24 4:25 AM Result Value Ref Range Bedside glucose 134 (H) 65 - 99 mg/dL Bedside Glucose *Place/Obtain serum glucose if >500(>600 MRH) per glucometer. Collection Time: 05/28/24 5:16 AM Result Value Ref Range Bedside glucose 162 (H) 65 - 99 mg/dL Bedside Glucose *Place/Obtain serum glucose if >500(>600 MRH) per glucometer. Collection Time: 05/28/24 6:20 AM Result Value Ref Range Bedside glucose 191 (H) 65 - 99 mg/dL Bedside Glucose *Place/Obtain serum glucose if >500(>600 MRH) per glucometer. Collection Time: 05/28/24 7:18 AM Result Value Ref Range Bedside glucose 174 (H) 65 - 99 mg/dL Electrolyte panel Collection Time: 05/28/24 8:10 AM Result Value Ref Range Sodium 143 134 - 146 mmol/L Potassium, Bld 3.6 3.5 - 5.0 mmol/L Chloride 121 (H) 98 - 109 mmol/L CO2 15 (L) 22 - 32 mmol/L Anion gap 7 5 - 15 mmol/L Bedside Glucose *Place/Obtain serum glucose if >500(>600 MRH) per glucometer. Collection Time: 05/28/24 8:44 AM Result Value Ref Range Bedside glucose 133 (H) 65 - 99 mg/dL Bedside Glucose *Place/Obtain serum glucose if >500(>600 MRH) per glucometer. Collection Time: 05/28/24 9:53 AM Result Value Ref Range Bedside glucose 109 (H) 65 - 99 mg/dL Bedside Glucose *Place/Obtain serum glucose if >500(>600 MRH) per glucometer. Collection Time: 05/28/24 11:06 AM Result Value Ref Range Bedside glucose 110 (H) 65 - 99 mg/dL Radiology No results found. HOSPITAL PROBLEM LIST Principal Problem: Diabetic ketoacidosis without coma associated with type 1 diabetes mellitus ([facility]) ASSESSMENT & PLAN Diabetic ketoacidosis without coma associated with type 1 diabetes -currently on insulin infusion -currently on dextrose with potassium of 20 mEq use -clear liquid diet, with strict carb controlled -electrolyte panel every 4 hours -beta hydroxybutyrate 11.28 -white blood cell from 27.7 yesterday to 22.3 today -26 yesterday, last check was 7 -CO2 15 today, from 7 -7.039 yesterday - started IV Protonix daily - p.r.n. Zofran Chart reviewed. Admission orders placed and home medications reconciled. DVT/VTE prophylaxis: SCD and pharmacologic prophylaxis, heparin SQ. GI prophylaxis: add pantoprazole. DC planning: Home when stable Ruby Vicente APRN-FIBROUS PLASTERER 05/28/2024 12:08 PM [facility] Internal Medicine 7AM-7PM (all facilities): [place] or kelsey through Vocera. 7PM-7AM ([facility], [facility] Psychiatry and Inpatient Rehab): [place] or kelsey, [phone]. 7PM-7AM ([facility], [place], [place] and [facility] Rehab): EpicChat or page through Vocera. JOANNA Rankin 05/28/24 1218 Patient seen and examined Interviewed and any questions answered All labs , xrays reviewed Clinical assessment and decisions made by myself in entirety Discussed case with team Agree with above assessment and plan Patient admitted with vomiting, found to have DKA. Placed on insulin infusion, electrolytes improving. Will start carbohydrate restricted clear liquid diet. Continue DKA protocol Electronically signed by: ANJELICA GERARDO MD, 05/28/2024 1:38 PM [facility] [address] [place] [address]., [address] [place] [address] (P): [phone] (F): [phone] [facility] 05-28-2024 History and physical note Images from the original note were not included. [facility] INTERNAL MEDICINE [facility] - ACUTE [facility] [address] [place] [phone] Hospital Medicine History & Physical Patient: Douglas Cordova Date of : 1995 Room: [facility]/ PCP: [facility] Admission date: 05/27/2024 1:36 PM Encounter date: 05/28/24 Hospital Day: 2 SUBJECTIVE Douglas Cordova is a 28 y.o. female who presents with elevated blood sugar. Patient has a history of type 1 diabetes. She was recently seen at [facility] but reports she was forced to leave d/t taking a shower. Upon admission patient appeared to be in DKA. Blood sugar was in the 400s, Anion gap was 16 patient was acidotic per arterial blood gas. She was started on insulin drip as well as normal saline with 20 mEq of potassium. White blood cell count 27.7. Beta hydroxybutyrate 11.28. Drug screen negative. Patient seen and examined this morning at bedside. Patient continues to complain of abdominal pain as well as vomiting. She is requesting a diet, we will start patient on clear liquid diet with very strict carb controlled. Allergies: Penicillins, Shellfish containing products, and Shellfish derived Prior to Admission medications Medication Sig Start Date End Date Taking? Authorizing Provider insulin glargine (LANTUS, SEMGLEE) 100 unit/mL (3 mL) insulin pen Inject 20 Units under the skin in the morning and 20 Units before bedtime. 07/04/23 Yes Ronal Logan MD insulin lispro (HumaLOG) 100 unit/mL injection Take 2 units per 15 grams of carbohydrates up to 10 units per 75 grams of carbohydrates within 15 minutes of finishing meals together with correction insulin when needed. Patient taking differently: 1 ml (10 units) per carb 07/09/18 Yes Maxine Baez MD Code Status: Full Code Past Medical History: Patient has a past medical history of Anxiety, Asthma, Depression, Diabetes mellitus type I ([facility]), DM type 1 (diabetes mellitus, type 1) ([facility]), Genital herpes, GERD (gastroesophageal reflux disease), Herpes genitalis, Psoriasis, and Visual impairment. Past Surgical History: Patient has a past surgical history that includes section (2). Family History: Patient's family history includes Bladder dysfunction in her mother; Diabetes in her mother; Multiple sclerosis in her mother; Psoriasis in her mother. Social History: Patient reports that she has been smoking cigarettes. She has never used smokeless tobacco. She reports that she does not currently use drugs after having used the following drugs: Methamphetamines. She reports that she does not drink alcohol. Review of Systems Constitutional: Positive for diaphoresis and fatigue. Negative for chills and fever. HENT: Negative for congestion, ear pain and sore throat. Eyes: Negative for pain and visual disturbance. Respiratory: Negative for cough, chest tightness and shortness of breath. Cardiovascular: Negative for chest pain and palpitations. Gastrointestinal: Positive for nausea and vomiting. Negative for abdominal pain. Genitourinary: Negative for difficulty urinating, dysuria, flank pain and hematuria. Musculoskeletal: Negative for arthralgias and back pain. Skin: Negative for color change and rash. Neurological: Negative for dizziness, seizures, syncope and light-headedness. Psychiatric/Behavioral: Positive for agitation. All other systems reviewed and are negative. OBJECTIVE BP 141/89 Pulse 107 Temp 36.8 C (98.3 F) (Oral) Resp 18 Ht 170.2 cm (5' 7 ) Wt 78 kg (171 lb 15.3 oz) LMP 05/19/2024 SpO2 99% BMI 26.93 kg/m Temp: [36.3 C (97.3 F)-36.9 C (98.4 F)] 36.8 C (98.3 F) Pulse: [94-136] 107 Resp: [18-22] 18 BP: (118-169)/(69-101) 141/89 SpO2: [95 %-100 %] 99 % O2 Device: None (Room air) Intake/Output Summary (Last 24 hours) at 05/28/2024 1208 Last data filed at 05/28/2024 0845 Gross per 24 hour Intake 3550.68 ml Output 2750 ml Net 800.68 ml Physical Exam Vitals and nursing note reviewed. Constitutional: Appearance: She is well-developed. She is ill-appearing. HENT: Head: Normocephalic and atraumatic. Nose: Nose normal. Mouth/Throat: Mouth: Mucous membranes are dry. Comments: Appears hoarse from vomiting Eyes: Pupils: Pupils are equal, round, and reactive to light. Cardiovascular: Rate and Rhythm: Normal rate and regular rhythm. Heart sounds: Normal heart sounds. No murmur heard. Pulmonary: Effort: Pulmonary effort is normal. No respiratory distress. Breath sounds: Normal breath sounds. No wheezing. Abdominal: General: Bowel sounds are normal. Palpations: Abdomen is soft. Tenderness: There is abdominal tenderness. There is guarding. Musculoskeletal: General: Normal range of motion. Cervical back: Neck supple. Right lower leg: No edema. Left lower leg: No edema. Lymphadenopathy: Cervical: No cervical adenopathy. Skin: General: Skin is warm and dry. Coloration: Skin is pale. Findings: Rash (History of psoriasis) present. Neurological: Mental Status: She is alert and oriented to person, place, and time. Cranial Nerves: No cranial nerve deficit. Medications Scheduled: heparin (porcine), 5,000 Units, subcutaneous, Q8H KYARA pantoprazole, 40 mg, intravenous, Q24H KYARA sodium chloride, 3 mL, intravenous, Q12H KYARA Infusions: dextrose 5 % in water, 100 mL/hr dextrose 5 % and sodium chloride 0.9 % with KCl 20 mEq/L, 250 mL/hr, Last Rate: 250 mL/hr (05/28/24 0813) insulin regular, 0.2-54 Units/hr, Last Rate: 10 Units/hr (05/28/24 1129) As Needed: acetaminophen alum-mag hydroxide-simeth dextrose dextrose 5 % in water dextrose 5 % and sodium chloride 0.9 % with KCl 20 mEq/L dextrose 50 % in water (D50W) glucagon (human recombinant) ondansetron potassium chloride OR potassium chloride OR potassium chloride IV (Adult) sennosides-docusate sodium sodium chloride Allergies: Penicillins, Shellfish containing products, and Shellfish derived Labs Recent Results (from the past 24 hours) Bedside Glucose *Place/Obtain serum glucose if >500(>600 MRH) per glucometer. Collection Time: 05/27/24 1:32 PM Result Value Ref Range Bedside glucose 418 (HH) 65 - 99 mg/dL CBC auto differential Collection Time: 05/27/24 1:47 PM Result Value Ref Range White Blood Cells 27.7 (H) 4.0 - 11.0 X10E9/L RBC count 5.05 3.80 - 5.20 X10E12/L Hemoglobin 13.1 11.7 - 15.5 g/dL Hematocrit 41.4 35 - 47 % MCV 82 80 - 100 fL MCH 26.0 (L) 27 - 34 pg MCHC 31.7 (L) 32 - 36 g/dL RDW 14.4 11.5 - 15.0 % Platelets 397 150 - 450 X10E9/L MPV 8.4 7 - 12 fL Band 4.0 % Seg neutrophil 88.0 % Lymphocyte 7.0 % Monocytes 1.0 % Neutrophils Absolute (M) 25.5 (H) 1.5 - 6.6 X10E9/L Lymphocytes Absolute 1.9 1.0 - 3.5 X10E9/L Monocytes Absolute 0.3 0 - 0.9 X10E9/L Ovalocytes 1+ (A) NONE^NONE Comprehensive metabolic panel Collection Time: 05/27/24 1:47 PM Result Value Ref Range Sodium 139 134 - 146 mmol/L Potassium, Bld 4.6 3.5 - 5.0 mmol/L Chloride 106 98 - 109 mmol/L CO2 7 (LL) 22 - 32 mmol/L Anion gap 26 (H) 5 - 15 mmol/L BUN 26 (H) 5 - 23 mg/dL Creatinine 1.16 (H) 0.40 - 1.00 mg/dL Glucose 469 (HH) 65 - 99 mg/dL Calcium 8.9 8.5 - 10.5 mg/dL Total Protein 8.4 (H) 6.0 - 8.0 g/dL Albumin 4.7 3.2 - 5.3 g/dL Alkaline Phosphatase 99 39 - 130 U/L AST 22 0 - 41 U/L ALT 31 0 - 31 U/L Total bilirubin 1.2 0.3 - 1.2 mg/dL eGFR (CKD-EPI)non-race dependent 65 >59 ml/min/1.73sq.m Lactate w/ Reflex Collection Time: 05/27/24 1:47 PM Result Value Ref Range Lactate w/ Reflex 1.5 0.4 - 2.0 mmol/L Lipase Collection Time: 05/27/24 1:47 PM Result Value Ref Range Lipase 36 17 - 40 U/L Magnesium Collection Time: 05/27/24 1:47 PM Result Value Ref Range Magnesium 2.1 1.8 - 2.6 mg/dL Acetone, (BetaHydroxybutyrate, Ketone) quantitative, serum Collection Time: 05/27/24 1:47 PM Result Value Ref Range Beta hydroxy buterate 11.28 (H) 0.02 - 0.27 mmol/L Blood gas, venous Collection Time: 05/27/24 1:53 PM Result Value Ref Range Sample Type VENOUS Body Temp 37.0 37.0 C pH, Venous 7.042 (L) 7.320 - 7.420 PCO2, Venous 22.2 (L) 35 - 50 MMHG PO2, Venous 37 30 - 50 MMHG Base,Deficit 23.0 (H) 0.0 - 2.0 MMOL/L Portable HCO3 6.0 (L) 20.0 - 24.0 MMOL/L % O2 Sat 49.0 (L) >80.0 % Cami's Test NA Sample Site N/A Oxygen Source RoomAir Bedside Glucose *Place/Obtain serum glucose if >500(>600 MRH) per glucometer. Collection Time: 05/27/24 3:27 PM Result Value Ref Range Bedside glucose 430 (HH) 65 - 99 mg/dL Drug Screen, Urine Collection Time: 05/27/24 3:35 PM Result Value Ref Range Amphetamine/methamphetamine Negative Negative^Negative Barbiturate Screen, Ur Negative Negative^Negative Benzodiazepine Screen, Urine Negative Negative^Negative THC, urine Negative Negative^Negative Cocaine (metabolite) Negative Negative^Negative Opiate Quant, Ur Negative Negative^Negative Phencyclidine Negative Negative^Negative Oxycodone Negative Negative^Negative Methadone Negative Negative^Negative Ecstasy Negative Negative^Negative POCT Nursing Urine Macroscopic UA Collection Time: 05/27/24 3:43 PM Result Value Ref Range Specific gravity NAZ 1.025 1.003 - 1.035 Leukocyte esterase NAZ Negative Negative^Negative Nitrite NAZ Negative Negative^Negative Ph 5.5 5.0 - 8.5 Protein NAZ 100 (A) Negative^Negative mg/dL Urine glucose NAZ 500 (A) Negative^Negative mg/dL Ketones NAZ >=160 (A) Negative^Negative mg/dL Urobilinogen NAZ 0.2 <1.1 eu/dL Bilirubin NAZ Small (A) Negative^Negative Hemoglobin NAZ MODERATE (A) Negative^Negative POCT , urine Collection Time: 05/27/24 3:45 PM Result Value Ref Range Nursing urine Negative Negative^Negative Bedside Glucose *Place/Obtain serum glucose if >500(>600 MRH) per glucometer. Collection Time: 05/27/24 4:47 PM Result Value Ref Range Bedside glucose 398 (H) 65 - 99 mg/dL Bedside Glucose *Place/Obtain serum glucose if >500(>600 MRH) per glucometer. Collection Time: 05/27/24 5:55 PM Result Value Ref Range Bedside glucose 367 (H) 65 - 99 mg/dL Electrolyte panel Collection Time: 05/27/24 6:09 PM Result Value Ref Range Sodium 139 134 - 146 mmol/L Potassium, Bld 4.1 3.5 - 5.0 mmol/L Chloride 110 (H) 98 - 109 mmol/L CO2 6 (LL) 22 - 32 mmol/L Anion gap 23 (H) 5 - 15 mmol/L Bedside Glucose *Place/Obtain serum glucose if >500(>600 MRH) per glucometer. Collection Time: 05/27/24 7:11 PM Result Value Ref Range Bedside glucose 302 (H) 65 - 99 mg/dL Bedside Glucose *Place/Obtain serum glucose if >500(>600 MRH) per glucometer. Collection Time: 05/27/24 7:55 PM Result Value Ref Range Bedside glucose 262 (H) 65 - 99 mg/dL Electrolyte panel Collection Time: 05/27/24 8:19 PM Result Value Ref Range Sodium 141 134 - 146 mmol/L Potassium, Bld 3.9 3.5 - 5.0 mmol/L Chloride 111 (H) 98 - 109 mmol/L CO2 7 (LL) 22 - 32 mmol/L Anion gap 23 (H) 5 - 15 mmol/L Bedside Glucose *Place/Obtain serum glucose if >500(>600 MRH) per glucometer. Collection Time: 05/27/24 8:56 PM Result Value Ref Range Bedside glucose 222 (H) 65 - 99 mg/dL Bedside Glucose *Place/Obtain serum glucose if >500(>600 MRH) per glucometer. Collection Time: 05/27/24 10:14 PM Result Value Ref Range Bedside glucose 204 (H) 65 - 99 mg/dL Electrolyte panel Collection Time: 05/27/24 10:40 PM Result Value Ref Range Sodium 138 134 - 146 mmol/L Potassium, Bld 3.9 3.5 - 5.0 mmol/L Chloride 111 (H) 98 - 109 mmol/L CO2 11 (L) 22 - 32 mmol/L Anion gap 16 (H) 5 - 15 mmol/L Bedside Glucose *Place/Obtain serum glucose if >500(>600 MRH) per glucometer. Collection Time: 05/27/24 11:41 PM Result Value Ref Range Bedside glucose 246 (H) 65 - 99 mg/dL Electrolyte panel Collection Time: 05/28/24 12:24 AM Result Value Ref Range Sodium 140 134 - 146 mmol/L Potassium, Bld 4.2 3.5 - 5.0 mmol/L Chloride 114 (H) 98 - 109 mmol/L CO2 12 (L) 22 - 32 mmol/L Anion gap 14 5 - 15 mmol/L Bedside Glucose *Place/Obtain serum glucose if >500(>600 MRH) per glucometer. Collection Time: 05/28/24 1:11 AM Result Value Ref Range Bedside glucose 247 (H) 65 - 99 mg/dL Bedside Glucose *Place/Obtain serum glucose if >500(>600 MRH) per glucometer. Collection Time: 05/28/24 2:10 AM Result Value Ref Range Bedside glucose 231 (H) 65 - 99 mg/dL Bedside Glucose *Place/Obtain serum glucose if >500(>600 MRH) per glucometer. Collection Time: 05/28/24 3:25 AM Result Value Ref Range Bedside glucose 178 (H) 65 - 99 mg/dL Comprehensive metabolic panel Collection Time: 05/28/24 4:23 AM Result Value Ref Range Sodium 142 134 - 146 mmol/L Potassium, Bld 3.8 3.5 - 5.0 mmol/L Chloride 117 (H) 98 - 109 mmol/L CO2 16 (L) 22 - 32 mmol/L Anion gap 9 5 - 15 mmol/L BUN 20 5 - 23 mg/dL Creatinine 0.73 0.40 - 1.00 mg/dL Glucose 145 (H) 65 - 99 mg/dL Calcium 8.7 8.5 - 10.5 mg/dL Total Protein 7.0 6.0 - 8.0 g/dL Albumin 4.0 3.2 - 5.3 g/dL Alkaline Phosphatase 76 39 - 130 U/L AST 27 0 - 41 U/L ALT 25 0 - 31 U/L Total bilirubin 0.6 0.3 - 1.2 mg/dL eGFR (CKD-EPI)non-race dependent >90 >59 ml/min/1.73sq.m Magnesium Collection Time: 05/28/24 4:23 AM Result Value Ref Range Magnesium 1.7 (L) 1.8 - 2.6 mg/dL CBC auto differential Collection Time: 05/28/24 4:23 AM Result Value Ref Range White Blood Cells 22.3 (H) 4.0 - 11.0 X10E9/L RBC count 4.38 3.80 - 5.20 X10E12/L Hemoglobin 11.4 (L) 11.7 - 15.5 g/dL Hematocrit 34.1 (L) 35 - 47 % MCV 78 (L) 80 - 100 fL MCH 26.0 (L) 27 - 34 pg MCHC 33.4 32 - 36 g/dL RDW 14.1 11.5 - 15.0 % Platelets 340 150 - 450 X10E9/L MPV 7.9 7 - 12 fL Band 1.9 % Seg neutrophil 89.4 % Lymphocyte 6.8 % Monocytes 1.9 % Neutrophils Absolute (M) 20.3 (H) 1.5 - 6.6 X10E9/L Lymphocytes Absolute 1.5 1.0 - 3.5 X10E9/L Monocytes Absolute 0.4 0 - 0.9 X10E9/L Teardrop 1+ (A) NONE^NONE Ovalocytes 2+ (A) NONE^NONE Bedside Glucose *Place/Obtain serum glucose if >500(>600 MRH) per glucometer. Collection Time: 05/28/24 4:25 AM Result Value Ref Range Bedside glucose 134 (H) 65 - 99 mg/dL Bedside Glucose *Place/Obtain serum glucose if >500(>600 MRH) per glucometer. Collection Time: 05/28/24 5:16 AM Result Value Ref Range Bedside glucose 162 (H) 65 - 99 mg/dL Bedside Glucose *Place/Obtain serum glucose if >500(>600 MRH) per glucometer. Collection Time: 05/28/24 6:20 AM Result Value Ref Range Bedside glucose 191 (H) 65 - 99 mg/dL Bedside Glucose *Place/Obtain serum glucose if >500(>600 MRH) per glucometer. Collection Time: 05/28/24 7:18 AM Result Value Ref Range Bedside glucose 174 (H) 65 - 99 mg/dL Electrolyte panel Collection Time: 05/28/24 8:10 AM Result Value Ref Range Sodium 143 134 - 146 mmol/L Potassium, Bld 3.6 3.5 - 5.0 mmol/L Chloride 121 (H) 98 - 109 mmol/L CO2 15 (L) 22 - 32 mmol/L Anion gap 7 5 - 15 mmol/L Bedside Glucose *Place/Obtain serum glucose if >500(>600 MRH) per glucometer. Collection Time: 05/28/24 8:44 AM Result Value Ref Range Bedside glucose 133 (H) 65 - 99 mg/dL Bedside Glucose *Place/Obtain serum glucose if >500(>600 MRH) per glucometer. Collection Time: 05/28/24 9:53 AM Result Value Ref Range Bedside glucose 109 (H) 65 - 99 mg/dL Bedside Glucose *Place/Obtain serum glucose if >500(>600 MRH) per glucometer. Collection Time: 05/28/24 11:06 AM Result Value Ref Range Bedside glucose 110 (H) 65 - 99 mg/dL Radiology No results found. HOSPITAL PROBLEM LIST Principal Problem: Diabetic ketoacidosis without coma associated with type 1 diabetes mellitus ([facility]) ASSESSMENT & PLAN Diabetic ketoacidosis without coma associated with type 1 diabetes -currently on insulin infusion -currently on dextrose with potassium of 20 mEq use -clear liquid diet, with strict carb controlled -electrolyte panel every 4 hours -beta hydroxybutyrate 11.28 -white blood cell from 27.7 yesterday to 22.3 today -26 yesterday, last check was 7 -CO2 15 today, from 7 -7.039 yesterday - started IV Protonix daily - p.r.n. Zofran Chart reviewed. Admission orders placed and home medications reconciled. DVT/VTE prophylaxis: SCD and pharmacologic prophylaxis, heparin SQ. GI prophylaxis: add pantoprazole. DC planning: Home when stable JOANNA Rankin 05/28/2024 12:08 PM [facility] 7AM-7PM (all facilities): [place] [facility] through [employer]. 7PM-7AM ([facility], [facility]): [place] or [place], [phone]. 7PM-7AM ([place], [place], [place], [place] and [facility] Rehab): [place] or [place] through [email or web address]. JOANNA Rankin 05/28/24 1218 Patient seen and examined Interviewed and any questions answered All labs , xrays reviewed Clinical assessment and decisions made by myself in entirety Discussed case with team Agree with above assessment and plan Patient admitted with vomiting, found to have DKA. Placed on insulin infusion, electrolytes improving. Will start carbohydrate restricted clear liquid diet. Continue DKA protocol Electronically signed by: ANJELICA GERARDO MD, 05/28/2024 1:38 PM [facility] [address] [place] [address] (P): [phone] (F): [phone] documented in this encounter [facility] 05-28-2024 Nurse Note Nurse instructed pt not to get into shower, pt refuses to follow instructions. Up in shower at this time. Emesis x 1, approximately 100 ml of thin brown mucous. [facility] 05-28-2024 Nurse Note T/o shift pt removed gown and security intern to get into shower several times ( at least 4times) and caught multiple times drinking water from faucets in room, despite pt instruction not do these things and rationale given. Pt occasionally stated OK , but proceeded to do these things anyway. Importance of being careful not to dislodge IV site d/t difficulty starting IV reinforced, pt again verbalized understanding but proceeded to ignore education/guidance from RN. [facility] 05-28-2024 Plan of care note Problem: Safety Goal: Patient will be injury free during hospitalization Description: INTERVENTIONS: 1. Assess patient's risk for falls and implement fall prevention plan of care per policy 2. Provide and maintain a safe environment 3. Proper use of double Identifiers 4. Medication administration using the 5 rights 5. Hand hygiene 6. Specimens are labeled at the bedside 7. Instruct patient/ patient veterans employment representative about use of safety devices 8. Include patient/ patient veterans employment representative in decisions related to safety Outcome: Progressing Note: Evaluation of progress towards goal: Remains free from injury Problem: Knowledge Deficit Goal: Patient/patient veterans employment representative demonstrates understanding of disease process, treatment plan, medications, and discharge instructions Description: INTERVENTIONS 1. Complete learning assessment and assess knowledge base 2. Provide teaching at level of understanding 3. Provide teaching via preferred learning method(s) Outcome: Not Progressing Note: Evaluation of progress towards goal: Plan of care reviewed, pt drinking water when has been instructed multiple times not to do so. Pt getting OOB into shower multiple times after being told not to do so d/t risk of dislodging IV site, etc Problem: Gastrointestinal - Adult Goal: Minimal or absence of nausea and vomiting Description: INTERVENTIONS: 1. Administer IV fluids as ordered to ensure adequate hydration 2. Maintain NPO status as ordered until nausea and vomiting are resolved 3. Nasogastric tube to suction as ordered 4. Administer ordered antiemetic medications as needed 5. Provide nonpharmacologic comfort measures as appropriate 6. Advance diet as tolerated, if ordered 7. Nutrition consult to assist patient with adequate nutrition and appropriate food choices Outcome: Not Progressing Note: Evaluation of progress towards goal: pt continues w/ dry heaves/ vomiting. Nausea meds as per orders. Problem: Metabolic/Fluid and Electrolytes - Adult Goal: Electrolytes maintained within normal limits Description: INTERVENTIONS 1. Monitor for signs and symptoms of hypovolemia (tachycardia, rapid breathing, decreased urine output, postural hypotension, sunken fontanel) 2. Monitor for signs and symptoms of hypervolemia (strong rapid pulse, rapid breathing, crackles heard in lung mckee, edema, decreased urine output, sudden weight gain, distended neck veins in older children, enlarged liver and spleen) 1. Monitor intake and output 2. Monitor pt's weight 1. Monitor labs and assess patient for signs and symptoms of electrolyte imbalances 2. Administer electrolyte replacement as ordered 3. Monitor response to electrolyte replacements, including repeat lab results as appropriate 4. Fluid restriction or hydration as ordered 5. Instruct patient/ legal veterans employment representative on nutrition/diet; fluid/hydration restrictions as appropriate Outcome: Progressing Note: Evaluation of progress towards goal: CO2 remains low, anion gap currently wnl. K wnl. Goal: Glucose maintained within prescribed range Description: Patient's goal is: INTERVENTIONS 1. Monitor Blood Glucose as ordered 2. Assess for signs and symptoms of hyperglycemia and hypoglycemia 3. Administer ordered medications to maintain glucose within target range 4. Assess barriers to adequate nutritional intake and initiate nutrition consult as needed 5. Instruct patient/ legal veterans employment representative on self management of diabetes and initiate consult as needed Outcome: Progressing Note: Evaluation of progress towards goal: FSBS improving w/ insulin gtt, fsbs checks and insulin gtt per protocol [facility] [employer] [facility] 05-27-2024 Nurse Note Patient was provided mouth swabs and a small cup of iced water and was educated on only using swabs to keep mouth moist and not drink water. Patient refusing to follow directions and keep filling up cup with water from the faucet when RN is out of the room. RN educated patient on not doing this because it'll continue to make her nauseated and vomit, patient refuses to be compliant. Patient pulling off leads and gets in shower, states this helps her nausea, RN educated her on the need to keep her closely monitored and she cannot continue to do this, patient ignoring RN instructions. Patient states she is thinking about leaving AMA. RN educated the patient that this is not the bed thing for her health but it is her right. [facility] 05-27-2024 Plan of care note Problem: Pain Goal: Patient goal is pain score less than 4, able to rest, and participant in treatment plan as appropriate Description: INTERVENTIONS: 1. Encourage patient or legal veterans employment representative to report early pain and ask [...] policy 9. Teach patient or legal veterans employment representative interventions for comforting Outcome: Progressing Note: Evaluation of progress towards goal: Pt able to report pain according to 0/10 pain scale. Medicating patient for pain per orders. Problem: Safety Goal: Patient will be injury free during hospitalization Description: INTERVENTIONS: 1. Assess patient's risk for falls and implement fall prevention plan of care per policy 2. Provide and maintain a safe environment 3. Proper use of double Identifiers 4. Medication administration using the 5 rights 5. Hand hygiene 6. Specimens are labeled at the bedside 7. Instruct patient/ patient veterans employment representative about use of safety devices 8. Include patient/ patient veterans employment representative in decisions related to safety Outcome: Progressing Note: Evaluation of progress towards goal: Pt's risk for falls assessed and fall prevention implemented as needed, safe environment provided and maintained, hand hygiene completed. Problem: Infection Goal: Absence of infection during [...] technique 7. Identify and instruct patient/patient veterans employment representative in use of appropriate isolation precautions for identified infection/symptoms 8. Provide and discuss with patient/patient veterans employment representative on educational MDRO sheet 9. Encourage and monitor nutritional status daily and consult animal technician if indicated 10. Implement neutropenic guidelines as needed 11. Review exposure to history of communicable disease and recent travel history on admission 12. Encourage annual influenza vaccine 13. Encourage pneumonia vaccine Outcome: Progressing Note: Evaluation of progress towards goal: Patient VS WNL, remains afebrile for shift. Problem: Moderate - High Risk Fall Score Description: German Fall Score of =/> 25 or indicated by [facility] Assessment Goal: Patient should be free from fall Description: Interventions: 1. [place] to environment 2. Hourly rounds addressing the [...] footwear 11. Teach patient and patient veterans employment representative to maintain environment for safety and [...] walker) within reach 19. Request patient veterans employment representative bring adaptive equipment/mobility aids from home or obtain and provide as needed 20. Consult pharmacy regarding effects of med's affecting mobility, cognition, and alternatives 21. Obtain physician order for PT if risk factors associated with mobility are present 22. Obtain physician order for OT as appropriate 23. Utilize diversional activities 24. Educate patient and patient veterans employment representative how to maintain a safe environment during visitation times (notify nurse prior to leaving bedside) 25. Consider appropriateness of medical or non-biomedical specialist 26. Set up voiding schedule as appropriate (every 2 hours) Outcome: Progressing Note: Evaluation of progress towards goal: Pt remains free from falls or accidental injury during stay. Fall prevention measures in place. Hourly rounding per RN and maintained. Problem: Gastrointestinal - Adult Goal: Minimal or absence of nausea and vomiting Description: INTERVENTIONS: 1. Administer IV fluids as ordered to ensure adequate hydration 2. Maintain NPO status as ordered until nausea and vomiting are resolved 3. Nasogastric tube to suction as ordered 4. Administer ordered antiemetic medications as needed 5. Provide nonpharmacologic comfort measures as appropriate 6. Advance diet as tolerated, if ordered 7. Nutrition consult to assist patient with adequate nutrition and appropriate food choices Outcome: Progressing Note: Evaluation of progress towards goal: Denies nausea or vomiting. Problem: Metabolic/Fluid and Electrolytes - Adult Goal: Glucose maintained within prescribed range Description: Patient's goal is: INTERVENTIONS 1. Monitor Blood Glucose as ordered 2. Assess for signs and symptoms of hyperglycemia and hypoglycemia 3. Administer ordered medications to maintain glucose within target range 4. Assess barriers to adequate nutritional intake and initiate nutrition consult as needed 5. Instruct patient/ legal veterans employment representative on self management of diabetes and initiate consult as needed Outcome: Progressing Note: Evaluation of progress towards goal: Glucose closely monitored. On insulin drip. [facility] 05-27-2024 Physician Emergency department Note Images from the original note were not included. [facility] - EMERGENCY Pt Name: Douglas Cordova Birthdate: 1995 Chief Complaint: Chief Complaint Patient presents with High Blood Sugar - Symptomatic Pt left ama from [facility]. Came here with High Blood Sugar. States has been off of her pump since this am. History of Present Illness: Douglas Cordova is a 28-year-old female that presents to ED with complaint high blood sugar. Patient has a history of type 1 diabetes. She states that she went to the [facility] this morning for a blood sugar in the 400s. She normally wears an Omnipod but it was continuing to read in the 400s and it was removed at the [facility]. She states that she was forced to leave the hospital due to taking a shower. She arrives here stating that she believes she was in DKA. Spoke to nursing staff at [facility]. According to the staff, patient was aggressive and combative with staff and also uncooperative. Patient pulled out at least 3 Ivs. Patient was admitted to the floor for DKA and had an insulin drip running at the time. Staff state that the patient kept getting into the shower and would refused to exit for treatment. She also was wearing nothing but a bath ropbe and refused to cover up. Patient had an elevated white count in the 20s and her gap was in the 30s. Blood sugars were running in the 400s. They were on able to properly care for her given her refusal treatment so she signed out AMA and left the facility. Past Medical History: Past Medical History: Diagnosis Date Anxiety Asthma Depression Diabetes mellitus type I ([facility]) DM type 1 (diabetes mellitus, type 1) ([facility]) Genital herpes GERD (gastroesophageal reflux disease) Herpes genitalis Psoriasis Visual impairment glasses Past Surgical History: Past Surgical History: Procedure Laterality Date SECTION 2 Family History: Family History Problem Relation Age of Onset Multiple sclerosis Mother Psoriasis Mother Diabetes Mother Bladder dysfunction Mother Social History: Social History Socioeconomic History Marital status: Single Tobacco Use Smoking status: Every Day Current packs/day: 0.50 Types: Cigarettes Smokeless tobacco: Never Tobacco comments: hasn't smoked in 1 week, one cig per day Vaping Use Vaping status: Every Day Substances: Nicotine Substance and Sexual Activity Alcohol use: No Drug use: Not Currently Types: Methamphetamines Sexual activity: Defer Partners: Male Social History Narrative Merged History Encounter Social Drivers of Health Financial Resource Strain: Low Risk (06/15/2022) Overall Financial Resource Strain (CARDIA) Difficulty of Paying Living Expenses: Not hard at all Food Insecurity: No Food Insecurity (07/04/2023) Hunger Screening Food Insecurity - Worry: Never True Food Insecurity - Inability: Never True Transportation Needs: No Transportation Needs (06/15/2022) PRAPARE - Transportation Lack of Transportation (Medical): No Lack of Transportation (Non-Medical): No Physical Activity: Inactive (06/15/2022) Exercise Vital Sign Days of Exercise per Week: 0 days Minutes of Exercise per Session: 0 min Stress: No Stress Concern Present (06/15/2022) [place] [place] [employer] - Occupational Stress Questionnaire Feeling of Stress : Not at all Social Connections: Unknown (06/15/2022) Social Connection and Isolation Panel [NHANES] Frequency of Communication with Friends and Family: More than three times a week Frequency of Social Gatherings with Friends and Family: More than three times a week Attends Evangelical Services: Never Active Member of Clubs or Organizations: No Attends Club or Organization Meetings: Never Marital Status: Patient declined Received from [facility] Safety & Environment Review of Systems: Review of Systems Constitutional: Negative for chills and fever. HENT: Negative for ear pain. Eyes: Negative for pain. Respiratory: Negative for shortness of breath. Cardiovascular: Negative for chest pain/discomfort. Gastrointestinal: Positive for abdominal pain, nausea and vomiting. Negative for diarrhea. Endocrine: High blood sugar Genitourinary: Negative for flank pain. Musculoskeletal: Negative for back pain. Skin: Negative for rash. Neurological: Negative for headaches. Psychiatric/Behavioral: Negative for sleep disturbance and suicidal ideas. Physical Exam: ED Triage Vitals Temp Pulse Resp BP SpO2 -- -- -- -- -- Temp src Heart Rate Source Patient Position BP Location FiO2 (%) -- -- -- -- -- There were no vitals filed for this visit. Physical Exam Vitals reviewed. HENT: Head: Normocephalic and atraumatic. Eyes: Conjunctiva/sclera: Conjunctivae normal. Cardiovascular: Rate and Rhythm: Normal rate. Pulmonary: Effort: Pulmonary effort is normal. Breath sounds: Normal breath sounds. Abdominal: General: Abdomen is flat. There is no distension. Palpations: Abdomen is soft. Tenderness: There is abdominal tenderness. Musculoskeletal: General: Normal range of motion. Cervical back: Normal range of motion and neck supple. Skin: General: Skin is warm and dry. Neurological: General: No focal deficit present. Mental Status: She is alert and oriented to person, place, and time. GCS: GCS eye subscore is 4. GCS verbal subscore is 5. GCS motor subscore is 6. Procedure: Procedures Re-evaluation: 1520 - labs indicate DKA. Blood glucose greater than 400, CO2 7, positive gap. DKA protocol initiated including insulin drip. Spoke to DANIEL Coburn with the hospitalist group. Patient accepted for admission under Dr. Gerardo Medical Decision Making Plan of care - labs, IV Amount and/or Complexity of Data Reviewed Labs: ordered. ED Course: Clinical Impressions as of 05/27/24 1523 Diabetic ketoacidosis without coma associated with type 1 diabetes mellitus ([facility]) Shared Visit: 14:36 EST Yehuda El (scribe) documented on behalf and in the presence of Dr. Katherine Valenzuela. The doctor personally saw and evaluated the patient. The doctor discussed the management with the REYNALDO/Resident. The doctor reviewed the REYNALDO/Resident note, approved the management plan for this patient and takes responsibility for the medical care of the patient. Additional Notes/Findings: Douglas Cordova is a 28 y.o. female presenting to the ED for chief complaint of high blood sugar - symptomatic. Exam findings as follows: Constitutional: Awake and alert HENT: Head normocephalic and atraumatic Eyes: conjunctiva unremarkable Cardiovascular: Heart rate regular Pulmonary: Easy work of breathing, speaking full sentences Abdominal: Flat and non-distended Skin: Warm and dry Musculoskeletal: Moving all extremities spontaneously Neurological: No focal deficits . ED Disposition None ED Prescriptions None Scribe Attestation Dr. Katherine El personally performed the services described in the documentation, as scribed by Yehuda Jack in my presence, and it is both accurate and complete. Advanced Practice Provider (REYNALDO) - Shared Visit: Dr. Katherine El personally performed a [id number] diagnostic evaluation on this patient. I have repeated the brown portions of the physical exam and concur with the advanced practice provider (REYNALDO) findings. I have reviewed all laboratory findings and imaging reports. I have reviewed the note authored by the REYNALDO and agree with the assessment and plan as written. Please note that portions of this note were completed with a voice recognition program. Efforts were made to edit the dictations but occasionally words are mis-transcribed. JOANNA Burns 05/27/24 1332 JOANNA Burns 05/27/24 1346 Yehuda Jack 05/27/24 1439 JOANNA Burns 05/27/24 1525 [facility] 05-27-2024 Emergency department Note Images from the original note were not included. [facility] Pt Name: Douglas Cordova Birthdate: 1995 Chief Complaint: Chief Complaint Patient presents with High Blood Sugar - Symptomatic Pt left ama from [facility]. Came here with High Blood Sugar. States has been off of her pump since this am. History of Present Illness: Douglas Cordova is a 28-year-old female that presents to ED with complaint high blood sugar. Patient has a history of type 1 diabetes. She states that she went to the [facility] this morning for a blood sugar in the 400s. She normally wears an Omnipod but it was continuing to read in the 400s and it was removed at the [facility]. She states that she was forced to leave the hospital due to taking a shower. She arrives here stating that she believes she was in DKA. Spoke to nursing staff at [facility]. According to the staff, patient was aggressive and combative with staff and also uncooperative. Patient pulled out at least 3 Ivs. Patient was admitted to the floor for DKA and had an insulin drip running at the time. Staff state that the patient kept getting into the shower and would refused to exit for treatment. She also was wearing nothing but a bath ropbe and refused to cover up. Patient had an elevated white count in the 20s and her gap was in the 30s. Blood sugars were running in the 400s. They were on able to properly care for her given her refusal treatment so she signed out AMA and left the facility. Past Medical History: Past Medical History: Diagnosis Date Anxiety Asthma Depression Diabetes mellitus type I (CMS-HCC) DM type 1 (diabetes mellitus, type 1) ([facility]) Genital herpes GERD (gastroesophageal reflux disease) Herpes genitalis Psoriasis Visual impairment glasses Past Surgical History: Past Surgical History: Procedure Laterality Date SECTION 2 Family History: Family History Problem Relation Age of Onset Multiple sclerosis Mother Psoriasis Mother Diabetes Mother Bladder dysfunction Mother Social History: Social History Socioeconomic History Marital status: Single Tobacco Use Smoking status: Every Day Current packs/day: 0.50 Types: Cigarettes Smokeless tobacco: Never Tobacco comments: hasn't smoked in 1 week, one cig per day Vaping Use Vaping status: Every Day Substances: Nicotine Substance and Sexual Activity Alcohol use: No Drug use: Not Currently Types: Methamphetamines Sexual activity: Defer Partners: Male Social History Narrative Merged History Encounter Social Drivers of Health Financial Resource Strain: Low Risk (06/15/2022) Overall Financial Resource Strain (CARDIA) Difficulty of Paying Living Expenses: Not hard at all Food Insecurity: No Food Insecurity (07/04/2023) Hunger Screening Food Insecurity - Worry: Never True Food Insecurity - Inability: Never True Transportation Needs: No Transportation Needs (06/15/2022) PRAPARE - Transportation Lack of Transportation (Medical): No Lack of Transportation (Non-Medical): No Physical Activity: Inactive (06/15/2022) Exercise Vital Sign Days of Exercise per Week: 0 days Minutes of Exercise per Session: 0 min Stress: No Stress Concern Present (06/15/2022) [place] [employer] - Occupational Stress Questionnaire Feeling of Stress : Not at all Social Connections: Unknown (06/15/2022) Social Connection and Isolation Panel [NHANES] Frequency of Communication with Friends and Family: More than three times a week Frequency of Social Gatherings with Friends and Family: More than three times a week Attends Evangelical Services: Never Active Member of Clubs or Organizations: No Attends Club or Organization Meetings: Never Marital Status: Patient declined Received from [facility] Safety & Environment Review of Systems: Review of Systems Constitutional: Negative for chills and fever. HENT: Negative for ear pain. Eyes: Negative for pain. Respiratory: Negative for shortness of breath. Cardiovascular: Negative for chest pain/discomfort. Gastrointestinal: Positive for abdominal pain, nausea and vomiting. Negative for diarrhea. Endocrine: High blood sugar Genitourinary: Negative for flank pain. Musculoskeletal: Negative for back pain. Skin: Negative for rash. Neurological: Negative for headaches. Psychiatric/Behavioral: Negative for sleep disturbance and suicidal ideas. Physical Exam: ED Triage Vitals Temp Pulse Resp BP SpO2 -- -- -- -- -- Temp src Heart Rate Source Patient Position BP Location FiO2 (%) -- -- -- -- -- There were no vitals filed for this visit. Physical Exam Vitals reviewed. HENT: Head: Normocephalic and atraumatic. Eyes: Conjunctiva/sclera: Conjunctivae normal. Cardiovascular: Rate and Rhythm: Normal rate. Pulmonary: Effort: Pulmonary effort is normal. Breath sounds: Normal breath sounds. Abdominal: General: Abdomen is flat. There is no distension. Palpations: Abdomen is soft. Tenderness: There is abdominal tenderness. Musculoskeletal: General: Normal range of motion. Cervical back: Normal range of motion and neck supple. Skin: General: Skin is warm and dry. Neurological: General: No focal deficit present. Mental Status: She is alert and oriented to person, place, and time. GCS: GCS eye subscore is 4. GCS verbal subscore is 5. GCS motor subscore is 6. Procedure: Procedures Re-evaluation: 1520 - labs indicate DKA. Blood glucose greater than 400, CO2 7, positive gap. DKA protocol initiated including insulin drip. Spoke to DANIEL Coburn with the hospitalist group. Patient accepted for admission under Dr. Gerardo Medical Decision Making Plan of care - labs, IV Amount and/or Complexity of Data Reviewed Labs: ordered. ED Course: Clinical Impressions as of 05/27/24 1523 Diabetic ketoacidosis without coma associated with type 1 diabetes mellitus ([facility]) Shared Visit: 14:36 Yehuda ZHU (scribe) documented on behalf and in the presence of Dr. Katherine Valenzuela. The doctor personally saw and evaluated the patient. The doctor discussed the management with the REYNALDO/Resident. The doctor reviewed the REYNALDO/Resident note, approved the management plan for this patient and takes responsibility for the medical care of the patient. Additional Notes/Findings: Douglas Cordova is a 28 y.o. female presenting to the ED for chief complaint of high blood sugar - symptomatic. Exam findings as follows: Constitutional: Awake and alert HENT: Head normocephalic and atraumatic Eyes: conjunctiva unremarkable Cardiovascular: Heart rate regular Pulmonary: Easy work of breathing, speaking full sentences Abdominal: Flat and non-distended Skin: Warm and dry Musculoskeletal: Moving all extremities spontaneously Neurological: No focal deficits . ED Disposition None ED Prescriptions None Scribe Attestation Dr. Katherine El personally performed the services described in the documentation, as scribed by Yehuda Jack in my presence, and it is both accurate and complete. Advanced Practice Provider (REYNALDO) - Shared Visit: Dr. Katherine El personally performed a [id number]-[id number] diagnostic evaluation on this patient. I have repeated the brown portions of the physical exam and concur with the advanced practice provider (REYNALDO) findings. I have reviewed all laboratory findings and imaging reports. I have reviewed the note authored by the REYNALDO and agree with the assessment and plan as written. Please note that portions of this note were completed with a voice recognition program. Efforts were made to edit the dictations but occasionally words are mis-transcribed. JOANNA Burns 05/27/24 1332 JOANNA Burns 05/27/24 1346 Yehuda Jcak 05/27/24 1439 JOANNA Burns 05/27/24 1525 documented in this encounter [facility] 04-12-2024 History of Present illness Narrative Douglas [...] does not use bolus insulin. Was in longterm. IM : 10/2021 follow up visit on [...] 3 times daily PRN Insulin Disposable Pump (MetaCertipod DASH Pods, Gen 4,) misc USE DIRECTED, [...] Past Medical History: Diagnosis Date Anxiety Asthma ([facility]) Attention deficit disorder (ADD) without hyperactivity Bipolar 1 disorder, mixed ([facility]) Diabetic gastroparesis associated with type 1 diabetes mellitus ([facility]) Dietary counseling and surveillance Encounter for fitting and adjustment of insulin pump Fibromyalgia SANA (generalized anxiety disorder) ([facility]) GERD without esophagitis Insomnia, persistent FPC (current) use of insulin ([facility]) Mild intermittent asthma without complication ([facility]/HCC) Non-recurrent acute serous otitis media of left ear Opiate use Plaque psoriasis ([facility]/HCC) Presence of insulin pump Seasonal allergic rhinitis due to pollen Tobacco user Type 1 diabetes mellitus with diabetic polyneuropathy ([facility]/HCC) Type 1 diabetes mellitus with hyperglycemia ([facility]) ([facility]) Underweight Vitamin D deficiency Past Surgical [...] 1 diabetes mellitus with hyperglycemia (HCC) (CMS/HCC) - POCT glucose manually resulted - POCT [...] scale 2. Instruction given. Insulin long-term use ([facility]) Insulin pump in place Encounter for dietary consultation Diet and exercise reviewed with the patient Encounter for fitting or adjustment of insulin pump Follow up in about 3 months (around 07/13/2024). documented in this encounter [facility] 04-02-2024 History of Present illness Narrative Images from the original note were not included. Subjective Patient ID: Douglas Cordova is a 28 y.o. 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 Pt relates falling up stairs about 2 weeks ago, did have xrays done with [facility] 03/22/24, states 5th metatarsal fx. Pt relates [...] Medications Current Outpatient Medications: Insulin Disposable Pump ([employer] DASH Pods, Gen 4,) misc, USE DIRECTED, [...] MPJ, diminished at medial malleolus and patella. [place] Tim monofilament: Absent at 10/10 sites bilateral [...] referral to Podiatry 5. Right foot pain M79.671 Reviewed findings of diabetic foot exam with [...] Kendal Sommers DPM documented in this encounter [facility] 01-26-2024 Note Education Materials Emergency Medicine Medical [...] including vitamins, herbs, eye drops, creams, and enfw-cre-djbkydc medicines. ? Any problems you or family [...] if you need an emergent specialist or professional benefits sales consultant that is not available at the medical center you are at. ? You need to have more tests. A medical front desk specialist may be consulted if needed. Get help [...] provider. Document Revised: 02/27/2022 Document Reviewed: 10/25/2021 Distractify Patient Education ? 2022 [employer]. [facility] [place] 11-17-2023 Note Education Materials Infectious Disease Cellulitis, [...] these instructions at home: Medicines ? Take rdnh-woo-[id number] and prescription medicines only as told by [...] provider. Document Revised: 03/27/2022 Document Reviewed: 03/28/2022 Elsevier Patient Education ? 2022 [employer]. [facility] 07-04-2023 History of Present illness Narrative Images from the original note were not included. [facility] [address] [place] [address] Service Pager: Nirav Drew MD, Interim Chief MD Catrina Mooney [...] 140-180mg/dL in accordance with recommendations from the [place] [employer]. Blood glucoses above 200 mg/dl are [facility] monitored performance measures. ASSESSMENT and PLAN: [...] clinic/Endocrinology) within 1-2 weeks of discharge, at [facility], [address], [place] [address]. Need to call to schedule it: . [...] incarceration. Per chart, patient initially presented to [facility] 07/02 via EMS for altered [...] I did not find any documentation from housekeeping department worker follow up. ROS/Subjective/Interval history: Pt was sleepy [...] 07/04/23 0900 07/04/23 0244 07/03/23 0842 07/03/23 04107/02/23210907/02/23 1705 SODIUM mmol/L 138 141 < > [...] last 7 days Lab Units 07/04/23 0244 07/03/2340907/02/23 1705 ALBUMIN g/dL 3.0* 3.4 4.0 Last HbA1c: Lab Results Component Value Date HGBA1C 15.5 (H) 07/02/2023 HGBA1C >16.5 (H) 06/07/2021 Catrina Longo PA-C 07/04/23 1553 Images from the original note were not included. Adult ICU Progress Note [facility] - [facility] Cord[facility] 28 [facility] 1995 [id number] Date of Admission - 07/02/2023 4:55 PM History of Present Illness Douglas Cordova is a 28 y.o. female with a past medical history of uncontrolled T1DM d/t insulin noncompliance, numerous DKA exacerbations requiring multiple ICU admissions, diabetic neuropathy, psoriasis, adhd, hx of methamphetamine use, recent incarceration. Patient initially presented to [facility] 07/02 via EMS for altered [...] 250cc/hr. Failed to improve requiring transfer to [facility] for higher acuity care in ICU. [...] progress note was completed using a voice blood bank credit clerk system. Every effort was made to ensure accuracy. However, inadvertent computerized blood bank credit clerk errors may be present. Ronal Logan MD PGY1 IM Resident [facility] 07/04/23 1:53 PM Associated attestation - Letty Yee MD - 07/04/2023 3:59 PM EST I have seen and examined the patient on rounds with the resident/fellow. I repeated the brown components of the exam. I confirm the note and agree with the assessment and plan except as stated below: Letty Yee MD [facility] Critical Care Medicine Images from the original note were not included. Adult ICU Progress Note Patient - Douglas Cordova Age - 28 [facility] 1995 [id number] Date of Admission - 07/02/2023 4:55 PM History of Present Illness Douglas Cordova is a 28 y.o. female with a past medical history of uncontrolled T1DM d/t insulin noncompliance, numerous DKA exacerbations requiring multiple ICU admissions, diabetic neuropathy, psoriasis, adhd, hx of methamphetamine use, recent incarceration. Patient initially presented to [facility] 07/02 via EMS for altered [...] 250cc/hr. Failed to improve requiring transfer to [facility] for higher acuity care in ICU. [...] from last 7 days Lab Units 07/03/23 04107/02/23 1705 WBC X10E9/L 12.4* 19.2* HEMOGLOBIN g/dL [...] Results from last 7 days Lab Units 07/03/2340907/02/23 1705 ALBUMIN g/dL 3.4 4.0 TOTAL PROTEIN [...] 10 mL/hr, Last Rate: 10 mL/hr (07/03/23 06) sodium chloride 0.9 % with KCl 40 [...] progress note was completed using a voice blood bank credit clerk system. Every effort was made to ensure accuracy. However, inadvertent computerized blood bank credit clerk errors may be present. Ronal Logan MD PGY1 IM Resident [facility] 07/03/23 9:58 AM Associated attestation - Letty Yee MD - 07/03/2023 9:06 PM EST I have seen and examined the patient on rounds with the resident/fellow. I repeated the brown components of the exam. I confirm the note and agree with the assessment and plan except as stated below: Letty Yee MD [facility] documented in this encounter [facility] 07-04-2023 Progress note Formatting of t his note might be different from the original. Met with patient, introduced self and explained role as psychiatry physician/liaison. Began an interview in order to complete [...] meetings. Patient was born and raised in [place] and is a high school graduate. She is with two children, both of whom live with her parents. 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 She currently lives with friends in [place]. Patient has been linked with [facility] for mental health services in the past. She states she is active with NA meetings. Patient is willing to consider recommendations for additional mental health services. Will monitor, assist in coordinating such services as appropriate. - STEPHANIA Ma 07/04/23 3:53 PM [facility] 07-04-2023 Miscellaneous Notes Met with patient, introduced self and explained role as psychiatry physician/liaison. Began an interview in order to complete [...] meetings. Patient was born and raised in [place] and is a high school graduate. She is with two children, both of whom live with her parents. 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 She currently lives with friends in [place]. Patient has been linked with [facility] for mental health services in the past. [...] INTERVENTIONS: 1. Encourage patient or legal veterans employment representative to report early pain and ask [...] policy 9. Teach patient or legal veterans employment representative interventions for comforting Outcome: Progressing Note: [...] the bedside 7. Instruct patient/ patient veterans employment representative about use of safety devices 8. Include patient/ patient veterans employment representative in decisions related to safety Outcome: [...] technique 7. Identify and instruct patient/patient veterans employment representative in use of appropriate isolation precautions for identified infection/symptoms 8. Provide and discuss with patient/patient veterans employment representative on educational MDRO sheet 9. Encourage and monitor nutritional status daily and consult animal technician if indicated 10. Implement neutropenic guidelines as needed 11. Review exposure to history of communicable disease and recent travel history on admission 12. Encourage annual influenza vaccine 13. Encourage pneumonia vaccine Outcome: Progressing Note: Evaluation of progress towards goal: Pt receiving antibiotics. Labs drawn and monitored. Sites assessed and reassessed for s/s of infection. Problem: Knowledge Deficit Goal: Patient/patient veterans employment representative demonstrates understanding of disease process, treatment [...] be free from fall Description: Interventions: 1. [place] to environment 2. Hourly rounds addressing the [...] footwear 11. Teach patient and patient veterans employment representative to maintain environment for safety and [...] walker) within reach 19. Request patient veterans employment representative bring adaptive equipment/mobility aids from home or obtain and provide as needed 20. Consult pharmacy regarding effects of med's affecting mobility, cognition, and alternatives 21. Obtain physician order for PT if risk factors associated with mobility are present 22. Obtain physician order for OT as appropriate 23. Utilize diversional activities 24. Educate patient and patient veterans employment representative how to maintain a safe environment during visitation times (notify nurse prior to leaving bedside) 25. Consider appropriateness of medical or non-biomedical specialist 26. Set up voiding schedule as appropriate [...] discharge planning process 5. Communicate referral to adaptive physical educator as appropriate 6. Communicate referral to animal technician as appropriate 7. Collaborate with case management/oncology social work for discharge needs Outcome: Progressing Note: Evaluation [...] supplement as ordered 13. Collaborate with clinical animal technician 14. Include patient/ patient's veterans employment representative in decisions related to nutrition Outcome: [...] INTERVENTIONS: 1. Encourage patient or legal veterans employment representative to report early pain and ask [...] policy 9. Teach patient or legal veterans employment representative interventions for comforting Outcome: Progressing Note: [...] the bedside 7. Instruct patient/ patient veterans employment representative about use of safety devices 8. Include patient/ patient veterans employment representative in decisions related to safety Outcome: [...] technique 7. Identify and instruct patient/patient veterans employment representative in use of appropriate isolation precautions for identified infection/symptoms 8. Provide and discuss with patient/patient veterans employment representative on educational MDRO sheet 9. Encourage and monitor nutritional status daily and consult animal technician if indicated 10. Implement neutropenic guidelines as needed 11. Review exposure to history of communicable disease and recent travel history on admission 12. Encourage annual influenza vaccine 13. Encourage pneumonia vaccine Outcome: Progressing Note: Evaluation of progress towards goal: Patient is afebrile at present time. Will monitor labs and vital signs. Problem: Knowledge Deficit Goal: Patient/patient veterans employment representative demonstrates understanding of disease process, treatment [...] be free from fall Description: Interventions: 1. [place] to environment 2. Hourly rounds addressing the [...] footwear 11. Teach patient and patient veterans employment representative to maintain environment for safety and [...] walker) within reach 19. Request patient veterans employment representative bring adaptive equipment/mobility aids from home or obtain and provide as needed 20. Consult pharmacy regarding effects of med's affecting mobility, cognition, and alternatives 21. Obtain physician order for PT if risk factors associated with mobility are present 22. Obtain physician order for OT as appropriate 23. Utilize diversional activities 24. Educate patient and patient veterans employment representative how to maintain a safe environment during visitation times (notify nurse prior to leaving bedside) 25. Consider appropriateness of medical or non-biomedical specialist 26. Set up voiding schedule as appropriate [...] INTERVENTIONS: 1. Encourage patient or legal veterans employment representative to report early pain and ask [...] policy 9. Teach patient or legal veterans employment representative interventions for comforting Outcome: Progressing Note: [...] the bedside 7. Instruct patient/ patient veterans employment representative about use of safety devices 8. Include patient/ patient veterans employment representative in decisions related to safety Outcome: [...] technique 7. Identify and instruct patient/patient veterans employment representative in use of appropriate isolation precautions for identified infection/symptoms 8. Provide and discuss with patient/patient veterans employment representative on educational MDRO sheet 9. Encourage and monitor nutritional status daily and consult animal technician if indicated 10. Implement neutropenic guidelines as needed 11. Review exposure to history of communicable disease and recent travel history on admission 12. Encourage annual influenza vaccine 13. Encourage pneumonia vaccine Outcome: Progressing Note: Evaluation of progress towards goal: Pt is afebrile at this time. CBC being monitored Problem: Knowledge Deficit Goal: Patient/patient veterans employment representative demonstrates understanding of disease process, treatment [...] be free from fall Description: Interventions: 1. [place] to environment 2. Hourly rounds addressing the [...] footwear 11. Teach patient and patient veterans employment representative to maintain environment for safety and [...] walker) within reach 19. Request patient veterans employment representative bring adaptive equipment/mobility aids from home or obtain and provide as needed 20. Consult pharmacy regarding effects of med's affecting mobility, cognition, and alternatives 21. Obtain physician order for PT if risk factors associated with mobility are present 22. Obtain physician order for OT as appropriate 23. Utilize diversional activities 24. Educate patient and patient veterans employment representative how to maintain a safe environment during visitation times (notify nurse prior to leaving bedside) 25. Consider appropriateness of medical or non-biomedical specialist 26. Set up voiding schedule as appropriate [...] discharge planning process 5. Communicate referral to adaptive physical educator as appropriate 6. Communicate referral to animal technician as appropriate 7. Collaborate with case management/oncology social work for discharge needs Outcome: Progressing Note: Evaluation [...] INTERVENTIONS: 1. Encourage patient or legal veterans employment representative to report early pain and ask [...] policy 9. Teach patient or legal veterans employment representative interventions for comforting Outcome: Progressing Note: [...] the bedside 7. Instruct patient/ patient veterans employment representative about use of safety devices 8. Include patient/ patient veterans employment representative in decisions related to safety Outcome: [...] technique 7. Identify and instruct patient/patient veterans employment representative in use of appropriate isolation precautions for identified infection/symptoms 8. Provide and discuss with patient/patient veterans employment representative on educational MDRO sheet 9. Encourage and monitor nutritional status daily and consult animal technician if indicated 10. Implement neutropenic guidelines as needed 11. Review exposure to history of communicable disease and recent travel history on admission 12. Encourage annual influenza vaccine 13. Encourage pneumonia vaccine Outcome: Progressing Note: Evaluation of progress towards goal: Patient is afebrile at present time. Will monitor labs and vital signs. Problem: Knowledge Deficit Goal: Patient/patient veterans employment representative demonstrates understanding of disease process, treatment [...] be free from fall Description: Interventions: 1. [place] to environment 2. Hourly rounds addressing the [...] footwear 11. Teach patient and patient veterans employment representative to maintain environment for safety and [...] walker) within reach 19. Request patient veterans employment representative bring adaptive equipment/mobility aids from home or obtain and provide as needed 20. Consult pharmacy regarding effects of med's affecting mobility, cognition, and alternatives 21. Obtain physician order for PT if risk factors associated with mobility are present 22. Obtain physician order for OT as appropriate 23. Utilize diversional activities 24. Educate patient and patient veterans employment representative how to maintain a safe environment during visitation times (notify nurse prior to leaving bedside) 25. Consider appropriateness of medical or non-biomedical specialist 26. Set up voiding schedule as appropriate [...] with pillow support. documented in this encounter [facility] 07-04-2023 Hospital course Narrative Images from the [...] CONSULTANTS: Consulting Providers Provider Service Specialty Bryce Morales MD -- Psychiatry [facility] -- Endocrinology, Diabetes & Metabolism Endocrinology Psychiatry PROCEDURES: PICC line placement HPI/HOSPITAL COURSE SUMMARY: Douglas Cordova is a 28 y.o. female with a past medical history of uncontrolled T1DM d/t insulin noncompliance, numerous DKA exacerbations requiring multiple ICU admissions, diabetic neuropathy, psoriasis, adhd, hx of methamphetamine use, recent incarceration. Patient initially presented to [facility] 07/02 via EMS for altered [...] 250cc/hr. Failed to improve requiring transfer to [facility] for higher acuity care in ICU. [...] 1-2 weeks of discharge Follow up with housekeeping department worker within 3 days of discharge No future [...] except as stated below: Letty Yee MD [facility] Critical Care Medicine documented in this encounter [facility] 07-04-2023 Plan of care note Discharge Against Medical Advice The patient has decided to leave against medical advice because she wants to leave the hospital. They have normal mental status and adequate capacity to make medical decisions. The patient refuses hospital admission and wants to be discharged. The risks have been explained to the patient, including returning to [facility], fatal electrolyte abnormalities, worsening illness, chronic pain, [...] lantus 20 BID Ronal Logan MD PGY-1 [facility] 07-04-2023 Hospital Discharge instructions Ronal Logan MD [...] manage your T1DM. documented in this encounter [facility] 07-04-2023 Plan of care note Problem: Pain Goal: Patient goal is pain score less than 4, able to rest, and participant in treatment plan as appropriate Description: INTERVENTIONS: 1. Encourage patient or legal veterans employment representative to report early pain and ask [...] policy 9. Teach patient or legal veterans employment representative interventions for comforting Outcome: Progressing Note: [...] the bedside 7. Instruct patient/ patient veterans employment representative about use of safety devices 8. Include patient/ patient veterans employment representative in decisions related to safety Outcome: [...] technique 7. Identify and instruct patient/patient veterans employment representative in use of appropriate isolation precautions for identified infection/symptoms 8. Provide and discuss with patient/patient veterans employment representative on educational MDRO sheet 9. Encourage and monitor nutritional status daily and consult animal technician if indicated 10. Implement neutropenic guidelines as needed 11. Review exposure to history of communicable disease and recent travel history on admission 12. Encourage annual influenza vaccine 13. Encourage pneumonia vaccine Outcome: Progressing Note: Evaluation of progress towards goal: Pt receiving antibiotics. Labs drawn and monitored. Sites assessed and reassessed for s/s of infection. Problem: Knowledge Deficit Goal: Patient/patient veterans employment representative demonstrates understanding of disease process, treatment [...] be free from fall Description: Interventions: 1. [place] to environment 2. Hourly rounds addressing the [...] footwear 11. Teach patient and patient veterans employment representative to maintain environment for safety and [...] walker) within reach 19. Request patient veterans employment representative bring adaptive equipment/mobility aids from home or obtain and provide as needed 20. Consult pharmacy regarding effects of med's affecting mobility, cognition, and alternatives 21. Obtain physician order for PT if risk factors associated with mobility are present 22. Obtain physician order for OT as appropriate 23. Utilize diversional activities 24. Educate patient and patient veterans employment representative how to maintain a safe environment during visitation times (notify nurse prior to leaving bedside) 25. Consider appropriateness of medical or non-biomedical specialist 26. Set up voiding schedule as appropriate [...] discharge planning process 5. Communicate referral to adaptive physical educator as appropriate 6. Communicate referral to animal technician as appropriate 7. Collaborate with case management/oncology social work for discharge needs Outcome: Progressing Note: Evaluation [...] supplement as ordered 13. Collaborate with clinical animal technician 14. Include patient/ patient's veterans employment representative in decisions related to nutrition Outcome: [...] carballo care done prn and per policy. [facility] 07-03-2023 Plan of care note Problem: Pain Goal: Patient goal is pain score less than 4, able to rest, and participant in treatment plan as appropriate Description: INTERVENTIONS: 1. Encourage patient or legal veterans employment representative to report early pain and ask [...] policy 9. Teach patient or legal veterans employment representative interventions for comforting Outcome: Progressing Note: [...] the bedside 7. Instruct patient/ patient veterans employment representative about use of safety devices 8. Include patient/ patient veterans employment representative in decisions related to safety Outcome: [...] technique 7. Identify and instruct patient/patient veterans employment representative in use of appropriate isolation precautions for identified infection/symptoms 8. Provide and discuss with patient/patient veterans employment representative on educational MDRO sheet 9. Encourage and monitor nutritional status daily and consult animal technician if indicated 10. Implement neutropenic guidelines as needed 11. Review exposure to history of communicable disease and recent travel history on admission 12. Encourage annual influenza vaccine 13. Encourage pneumonia vaccine Outcome: Progressing Note: Evaluation of progress towards goal: Patient is afebrile at present time. Will monitor labs and vital signs. Problem: Knowledge Deficit Goal: Patient/patient veterans employment representative demonstrates understanding of disease process, treatment [...] be free from fall Description: Interventions: 1. [place] to environment 2. Hourly rounds addressing the [...] footwear 11. Teach patient and patient veterans employment representative to maintain environment for safety and [...] walker) within reach 19. Request patient veterans employment representative bring adaptive equipment/mobility aids from home or obtain and provide as needed 20. Consult pharmacy regarding effects of med's affecting mobility, cognition, and alternatives 21. Obtain physician order for PT if risk factors associated with mobility are present 22. Obtain physician order for OT as appropriate 23. Utilize diversional activities 24. Educate patient and patient veterans employment representative how to maintain a safe environment during visitation times (notify nurse prior to leaving bedside) 25. Consider appropriateness of medical or non-biomedical specialist 26. Set up voiding schedule as appropriate [...] turned every 2 hours with pillow support. [facility] 07-03-2023 Consult note Associated Order (s): IP CONSULT TO ENDOCRINOLOGY Images from the original note were not included. [facility]ocr[facility] [address] [place] [address] Service Pager: Nirav Drew MD, Interim Chief MD Catrina Mooney [...] 140-180mg/dL in accordance with recommendations from the [place] [employer]. Blood glucoses above 200 mg/dl are [facility] monitored performance measures. ASSESSMENT and PLAN: [...] incarceration. Per chart, patient initially presented to [facility] 07/02 via EMS for altered [...] I did not find any documentation from housekeeping department worker follow up. Diabetes History: Duration of Diabetes: [...] Anxiety Asthma Depression Diabetes mellitus type I ([facility]) DM type 1 (diabetes mellitus, type 1) ([facility]) Genital herpes GERD (gastroesophageal reflux disease) [...] taking: Reported on 06/10/2023 06/18/22 Cem Bhagat APRN-FIBROUS PLASTERER insulin lispro (HumaLOG) 100 unit/mL injection Take [...] 40 mEq infusion, 250 mL/hr, intravenous, Continuous, Dylon Darden DO, Held at 07/03/23 1115 dextrose [...] 5 mg, 5 mg, intravenous, Q6H PRN, Dylon Darden, DO, 5 mg at 07/03/23 1255 [...] mL/hr at 07/03/23 0410, Rate Verify at 07/03/23409 sodium chloride 0.9 [...] >16.5 (H) 06/07/2021 Catrina Longo PA-C 07/03/23 8018 [facility] [employer] [facility] 07-03-2023 Consult note Associated Order (s): IP CONSULT TO ENDOCRINOLOGY Images from the original note were not included. [facility]ocr[facility] [place] [facility] [address] [place] [address] Service Pager: Nirav Drew MD, Interim Chief MD Catrina Mooney PA-C Alexandrea Vizzaccaro, PA-C Austin Howard, PA-C Aneeba Farooqi, MD, Fellow Stanton Sylvester MD, Fellow NO NEED to PAGE for NEW CONSULTS Page for immediate attention. With this consult we assume full responsibility for diabetes care. Diabetes Management Service Consult Note Patient : Douglas Cordova; 28 y.o. Location: [place] [address] Admit Date: 07/02/2023 Hospital Day: Hospital Day: [...] 140-180mg/dL in accordance with recommendations from the [place] [employer]. Blood glucoses above 200 mg/dl are [facility] monitored performance measures. ASSESSMENT and PLAN: [...] incarceration. Per chart, patient initially presented to [facility] 07/02 via EMS for altered [...] I did not find any documentation from housekeeping department worker follow up. Diabetes History: Duration of Diabetes: [...] Anxiety Asthma Depression Diabetes mellitus type I ([facility]) DM type 1 (diabetes mellitus, type 1) ([facility]) Genital herpes GERD (gastroesophageal reflux disease) [...] 40 mEq infusion, 250 mL/hr, intravenous, Continuous, Dylon Darden DO, Held at 07/03/23 1115 dextrose [...] 5 mg, 5 mg, intravenous, Q6H PRN, Dylon Darden, DO, 5 mg at 07/03/23 1255 [...] PA-C 07/03/23 1355 [facility] Plan of care note Problem: Pain Goal: Patient goal is pain score less than 4, able to rest, and participant in treatment plan as appropriate Description: INTERVENTIONS: 1. Encourage patient or legal veterans employment representative to report early pain and ask [...] policy 9. Teach patient or legal veterans employment representative interventions for comforting Outcome: Progressing Note: [...] the bedside 7. Instruct patient/ patient veterans employment representative about use of safety devices 8. Include patient/ patient veterans employment representative in decisions related to safety Outcome: [...] technique 7. Identify and instruct patient/patient veterans employment representative in use of appropriate isolation precautions for identified infection/symptoms 8. Provide and discuss with patient/patient veterans employment representative on educational MDRO sheet 9. Encourage and monitor nutritional status daily and consult animal technician if indicated 10. Implement neutropenic guidelines as needed 11. Review exposure to history of communicable disease and recent travel history on admission 12. Encourage annual influenza vaccine 13. Encourage pneumonia vaccine Outcome: Progressing Note: Evaluation of progress towards goal: Pt is afebrile at this time. CBC being monitored Problem: Knowledge Deficit Goal: Patient/patient veterans employment representative demonstrates understanding of disease process, treatment [...] be free from fall Description: Interventions: 1. [place] to environment 2. Hourly rounds addressing the [...] footwear 11. Teach patient and patient veterans employment representative to maintain environment for safety and [...] walker) within reach 19. Request patient veterans employment representative bring adaptive equipment/mobility aids from home or obtain and provide as needed 20. Consult pharmacy regarding effects of med's affecting mobility, cognition, and alternatives 21. Obtain physician order for PT if risk factors associated with mobility are present 22. Obtain physician order for OT as appropriate 23. Utilize diversional activities 24. Educate patient and patient veterans employment representative how to maintain a safe environment during visitation times (notify nurse prior to leaving bedside) 25. Consider appropriateness of medical or non-biomedical specialist 26. Set up voiding schedule as appropriate [...] discharge planning process 5. Communicate referral to adaptive physical educator as appropriate 6. Communicate referral to animal technician as appropriate 7. Collaborate with case management/oncology social work for discharge needs Outcome: Progressing Note: Evaluation [...] place. Skin is kept clean and dry. [facility] 07-02-2023 Plan of care note Problem: Pain Goal: Patient goal is pain score less than 4, able to rest, and participant in treatment plan as appropriate Description: INTERVENTIONS: 1. Encourage patient or legal veterans employment representative to report early pain and ask [...] policy 9. Teach patient or legal veterans employment representative interventions for comforting Outcome: Progressing Note: [...] the bedside 7. Instruct patient/ patient veterans employment representative about use of safety devices 8. Include patient/ patient veterans employment representative in decisions related to safety Outcome: [...] technique 7. Identify and instruct patient/patient veterans employment representative in use of appropriate isolation precautions for identified infection/symptoms 8. Provide and discuss with patient/patient veterans employment representative on educational MDRO sheet 9. Encourage and monitor nutritional status daily and consult animal technician if indicated 10. Implement neutropenic guidelines as needed 11. Review exposure to history of communicable disease and recent travel history on admission 12. Encourage annual influenza vaccine 13. Encourage pneumonia vaccine Outcome: Progressing Note: Evaluation of progress towards goal: Patient is afebrile at present time. Will monitor labs and vital signs. Problem: Knowledge Deficit Goal: Patient/patient veterans employment representative demonstrates understanding of disease process, treatment [...] be free from fall Description: Interventions: 1. [place] to environment 2. Hourly rounds addressing the [...] footwear 11. Teach patient and patient veterans employment representative to maintain environment for safety and [...] walker) within reach 19. Request patient veterans employment representative bring adaptive equipment/mobility aids from home or obtain and provide as needed 20. Consult pharmacy regarding effects of med's affecting mobility, cognition, and alternatives 21. Obtain physician order for PT if risk factors associated with mobility are present 22. Obtain physician order for OT as appropriate 23. Utilize diversional activities 24. Educate patient and patient veterans employment representative how to maintain a safe environment during visitation times (notify nurse prior to leaving bedside) 25. Consider appropriateness of medical or non-biomedical specialist 26. Set up voiding schedule as appropriate [...] turned every 2 hours with pillow support. [facility] 07-02-2023 History and physical note Images from [...] use, recent incarceration. Patient initially presented to [facility] 07/02 via EMS for altered [...] 250cc/hr. Failed to improve requiring transfer to [facility] for higher acuity care in ICU. Upon arrival to [facility] ICU Patient 35.6, HR 101, RR [...] Anxiety Asthma Depression Diabetes mellitus type I ([facility]) DM type 1 (diabetes mellitus, type 1) ([facility]) Genital herpes GERD (gastroesophageal reflux disease) [...] Reported on 06/10/2023 06/18/22 Cem Bhagat APRN-DANIEL ibuprofen (MOTRIN) 800 mg tablet Take 1 [...] progress note was completed using a voice blood bank credit clerk system. Every effort was made to ensure accuracy. However, inadvertent computerized blood bank credit clerk errors may be present. Ronal Logan MD PGY1 IM Resident [facility] 07/02/23 5:26 PM Associated attestation - Letty Yee MD - 07/03/2023 9:04 PM EST I have seen and examined the patient on rounds with the resident/fellow. I repeated the brown components of the exam. I confirm the note and agree with the assessment and plan except as stated below: Letty Yee MD [facility] Critical Care Medicine [facility] 07-02-2023 History and physical note Images from [...] use, recent incarceration. Patient initially presented to [facility] 07/02 via EMS for altered [...] 250cc/hr. Failed to improve requiring transfer to [facility] for higher acuity care in ICU. Upon arrival to [facility] ICU Patient 35.6, HR 101, RR 15 BP 116/83. Blood sugar 231. VBG PH 6.956/ PCO2 20.1/ HCO3 4.5/ O2 Sat 25%. Beta hydroxybutyrate Lactate . Patient intermittently drowsy. Responding to commands upon exam. EKG obtained which revealed new 1mm depression V4-V6. Continued on insulin infusion, Started on D5 /2 NS with 40meq KCL at 250cc/hr. Past Medical History: Past Medical History: Diagnosis Date Anxiety Asthma Depression Diabetes mellitus type I ([facility]) DM type 1 (diabetes mellitus, type 1) ([facility]) Genital herpes GERD (gastroesophageal reflux disease) [...] for nausea or vomiting. 06/18/22 Cem Bhagat APRN-FIBROUS PLASTERER pantoprazole (PROTONIX) 20 mg EC tablet Take [...] progress note was completed using a voice blood bank credit clerk system. Every effort was made to ensure accuracy. However, inadvertent computerized blood bank credit clerk errors may be present. Ronal Logan MD PGY1 IM Resident [facility] 07/02/23 5:26 PM Associated attestation - Letty Yee MD - 07/03/2023 9:04 PM EST I have seen and examined the patient on rounds with the resident/fellow. I repeated the brown components of the exam. I confirm the note and agree with the assessment and plan except as stated below: Letty Yee MD [facility] Critical Care Medicine documented in this encounter [facility] [employer] 06-16-2023 Note [id number] [id number] 05-30-2023 Note Education Materials Endocrinology Hyperglycemia [...] instructions at home: General instructions ? Take [id number] and prescription medicines only as told by [...] have diabetes. Where to find more information [place] [employer]: www.diabetes.org Contact a doctor if: [...] or act (ment (more content not included)... 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 (CMS/HCC) Fracture of unspecified metatarsal bone(s), unspecified foot, initial encounter for closed fracture Right foot pain Pain in soft tissues of limb [facility] Diagnosis ADD (attention deficit disorder) without hyperactivity- Primary Attention deficit disorder without mention of hyperactivity Mixed bipolar I disorder (CMS/HCC) Bipolar I disorder, most recent episode (or current) mixed, unspecified Generalized anxiety disorder (CMS/HCC) Generalized anxiety disorder Primary insomnia Persistent disorder of initiating or maintaining sleep Opiate abuse, episodic (CMS/HCC) Diabetic gastroparesis associated with type 1 diabetes mellitus (CMS/HCC) Type 1 diabetes mellitus with polyneuropathy (CMS/HCC) Type I (juvenile type) diabetes mellitus with neurological manifestations, not stated as uncontrolled Type 1 diabetes mellitus with hyperglycemia (HCC) ([facility]) Plaque psoriasis ([facility]/HCC) Other psoriasis Type 1 diabetes mellitus with hyperglycemia (HCC) ([facility])- Primary Insulin long-term use ([facility]) Encounter for long-term (current) use of insulin Insulin pump in place Insulin pump status Encounter for dietary consultation Encounter for fitting or adjustment of insulin pump Fitting and adjustment of insulin pump documented in this encounter [facility]* Diagnosis ADD (attention deficit disorder) without hyperactivity- Primary Attention deficit disorder without mention of hyperactivity Mixed bipolar I disorder ([facility]) Bipolar I disorder, most recent episode (or current) mixed, unspecified Generalized anxiety disorder ([facility]) Generalized anxiety disorder Primary insomnia Persistent disorder of initiating or maintaining sleep Opiate abuse, episodic ([facility]) Diabetic gastroparesis associated with type 1 diabetes mellitus ([facility] HOSPITAL) Type 1 diabetes mellitus with polyneuropathy ([facility]) Type I (juvenile type) diabetes mellitus with neurological manifestations, not stated as uncontrolled Type 1 diabetes mellitus with hyperglycemia (HCC) ([facility]) Plaque psoriasis ([facility]) Other psoriasis Type 1 diabetes mellitus with hyperglycemia (HCC) ([facility])- Primary Insulin long-term use ([facility]) Encounter for long-term (current) use of insulin Insulin pump in place Insulin pump status Encounter for dietary consultation Encounter for fitting or adjustment of insulin pump Fitting and adjustment of insulin pump documented in this encounter [facility] HealthcareEvaluation note* Diagnosis DKA (diabetic ketoacidosis) ([facility])- Primary Type II or unspecified type diabetes mellitus with ketoacidosis, not stated as uncontrolled Diabetic ketoacidosis without coma associated with type 1 diabetes mellitus ([facility]-HCC) Type 1 diabetes mellitus with ketoacidosis without coma ([facility]) [facility] Diagnosis Diabetic ketoacidosis without coma associated with type 1 diabetes mellitus ([facility])- Primary Diabetic ketoacidosis without coma associated with type 1 diabetes mellitus ([facility]) [facility] Diagnosis ADD (attention deficit disorder) without hyperactivity- Primary Attention deficit disorder without mention of hyperactivity Mixed bipolar I disorder ([facility]) Bipolar I disorder, most recent episode (or current) mixed, unspecified Generalized anxiety disorder (CMS/HCC) Generalized anxiety disorder Primary insomnia Persistent disorder of initiating or maintaining sleep Opiate abuse, episodic (CMS/HCC) Diabetic gastroparesis associated with type 1 diabetes mellitus (CMS/HCC) Type 1 diabetes mellitus with polyneuropathy (CMS/HCC) Type I (juvenile type) diabetes mellitus with neurological manifestations, not stated as uncontrolled Type 1 diabetes mellitus with hyperglycemia (HCC) (CMS/HCC) Plaque psoriasis (CMS/HCC) Other psoriasis Type 1 diabetes mellitus with hyperglycemia (HCC) ([facility]/HCC) documented in this encounter [facility] HealthcareEvaluation note* Diagnosis ADD (attention deficit disorder) without hyperactivity- Primary Attention deficit disorder without mention of hyperactivity Mixed bipolar I disorder (CMS/HCC) Bipolar I disorder, most recent episode (or current) mixed, unspecified Generalized anxiety disorder (CMS/HCC) Generalized anxiety disorder Primary insomnia Persistent disorder of initiating or maintaining sleep Opiate abuse, episodic (CMS/HCC) Diabetic gastroparesis associated with type 1 diabetes mellitus (CMS/HCC) Type 1 diabetes mellitus with polyneuropathy (CMS/HCC) Type I (juvenile type) diabetes mellitus with neurological manifestations, not stated as uncontrolled Type 1 diabetes mellitus with hyperglycemia (HCC) (CMS/HCC) Plaque psoriasis (CMS/HCC) Other psoriasis Type 1 diabetes mellitus with hyperglycemia (HCC) ([facility]/HCC)- Primary Insulin long-term use ([facility]) Encounter for long-term (current) use of insulin Insulin pump in place Insulin pump status Encounter for dietary consultation Encounter for fitting or adjustment of insulin pump Fitting and adjustment of insulin pump documented in this encounter [facility] HealthcareEvaluation note* Diagnosis care, first trimester- Primary Nausea/vomiting in Unspecified vomiting of , unspecified as to episode of care History of gestational hypertension Pre-existing type 1 diabetes mellitus during in first trimester documented in this encounter [facility]* Diagnosis Type 1 diabetes mellitus complicating in first trimester, antepartum- Primary Cystitis during in first trimester, antepartum documented in this encounter [facility]* Diagnosis with 9 completed weeks gestation- Primary Pap smear for cervical cancer screening Screening for malignant neoplasm of the cervix care, subsequent in first trimester History of CA (myocardial infarction) Old myocardial infarction Urinary tract infection in mother during first trimester of documented in this encounter [facility] Discharge instructionsNot on filedocumented in this encounterPro[facility] SystemInstructionsNot on filedocumented in this encounterProMedica Health SystemInstructionsNot on filedocumented in this encounterPro[facility] SystemInstructionsNot on filedocumented in this encounterProMemorial [facility] SystemInstructionsNot on filedocumented in this encounterProMemorial [facility] SystemInstructionsNot on filedocumented in this encounterProMemorial Health [facility] SystemInstructionsNot on filedocumented in this encounterC[facility] SystemReason for referral (narrative)* Misc (Routine) - Pending Review Specialty Diagnoses / Procedures Referred By Chavez fitzgerald Referred To Contact Procedures Adult diet Ruby Vicente APRN-CNP [address] [place] [address] Phone: tel: fax: Referral ID Status Reason Start Date Expiration Date V isits Requested Visits Authorized [id number] Pending Review 05/30/2024 05/30/2025 1 1 [facility] Summary Purpose Family History No Family History Records FoundNo Family History Records FoundNo Family History Records FoundNo Family History Records FoundNo Family History Records FoundNo Family History Records FoundNo Family History Records FoundNo Family History Records FoundNo Family History Records FoundNo Family History Records FoundNo Family History Records Found Advance Directives No Advanced Directives Records FoundDocuments on File Type Date Recorded Patient Produce Manager Expl anation Advance Directives and Livin g Will 06/07/2020 12:33 PM Latest Code Status on File Code Status Date Activated Date Inactivated Comments Full Code 06/07/2020 11:23 AM 06/10/2020 7:35 PM Full Code 06/07/2020 11:21 AM 06/07/2020 11:23 AM Latest Code Status on File Code Status Date Activated Date Inactivated Comments Full Code 07/29/2020 6:56 PM Documents on File Type Date Recorded Patient Produce Manager Expl anation Advance Directives and Livin g [...] Code 06/08/2021 5:12 PM 06/12/2021 3:41 PM Date Activated Date Inactivated Comments 05/27/2024 4:32 PM Date Activated Date Inactivated Comments 07/02/2023 5:29 PM 07/04/2023 4:33 PM Date Activated Date Inactivated Comments 06/16/2022 1:04 AM 06/18/2022 2:04 PM Date Activated Date Inactivated Comments 09/07/2021 7:45 AM 09/07/2021 4:29 PM Date Activated Date Inactivated Comments 06/18/2021 4:08 AM 06/20/2021 3:23 PM Date Activated Date Inactivated Comments 05/27/2024 4:32 PM 05/30/2024 8:34 PM Date Activated Date Inactivated Comments 07/02/2023 5:29 PM 07/04/2023 4:33 PM Date Activated Date Inactivated Comments 06/16/2022 1:04 AM 06/18/2022 2:04 PM Date Activated Date Inactivated Comments 09/07/2021 7:45 AM 09/07/2021 4:29 PM Date Activated Date Inactivated Comments 06/18/2021 4:08 AM 06/20/2021 3:23 PM Date Activated Date Inactivated Comments 05/27/2024 4:32 PM 05/30/2024 8:34 PM Hospital Course * Cam Wasserman MD - 06/10/2020 1:20 PM EST HOSPITALIST DISCHARGE SUMMARY Patient: Douglas Cordova Account: [id number] Admitted: 06/07/2020 Discharge Date/Time: 06/10/2020 Clinical Summary REASON FOR HOSPITALIZATION/HPI: Douglas Cordova is a 25 y.o. female patient of No primary care provider on file. with history of DM1 presented with hyperglycemia. DIAGNOSES: DKA from [facility], non compliance with her home insulin -DKA pathway initiated. -Resolved -Transition to Lantus, and Humalog -A1c1 7.8 -Patient seen by adaptive physical educator -Stable for discharge home although her [...] No acute process otherwise or pleural effusions. Nafham/[employer]enworld Workstation ID: [id number] Procedures No orders of the defined types were placed in this encounter. Consults Procedures Inpatient consult to Director Mortgage Inpatient consult to Dietitian Inpatient consult to Care Management Other Tests No orders of the defined types were placed in this encounter. Allergies Penicillins and Shellfish derived Discharge Diet Diet Special; Diabetic; Carbohydrate Consistent 60g/meal (6643-4675 kCal equivalent) Disposition Discharge Medications Medication List [...] Your Medications These medications were sent to [address] [id number] insulin glargine 100 unit/mL injection insulin lispro 100 unit/mL injection Physician(s) Family: Physician No, Phone: None, Address: [facility] Follow Up: PCP Follow up in 3 day(s) Patient instructions, including activity, were given to the patient/family at discharge. Please seethe After Visit Summary in the medical record for details. Time spent on discharge: > 30 minutes Completed by: Cam Wasserman on 06/10/20, 1:20 PM documented in this encounter Discharge Instructions * Discharge Instr - IP RD* Lisa Moore Yamileth, RD - 06/08/2020 3:09 PM EST Ms. [...] Diabetic Diet please contact Central Scheduling at [phone] to set up an outpatient appointment with a Registered Dietitian. Please check out [place] [employer] at [email or web address] for more resources. * Attachments The following attachments cannot be sent through Care Everywhere. * Carbohydrates: General Info (Japanese) * Diabetes: Counting Carbohydrates (Japanese) * Low Carbohydrate Foods: General Info (Japanese) * Diabetic Ketoacidosis (DKA) (Japanese) documented in this encounter History of Present [...] with hyperglycemia. Impression and Plan: DKA from [facility], non compliance with her home insulin, resolved. Started on DKA pathway on admission with Insulin gtt + IVF Has Insulin pump in the past, was DC because of ?noncompliance She is doing much better, Off Insulin gtt 06/08 BS is >250's Inc Lantus + SS IVF AG is 10 A1c is 17.8 Monitor wood GIRON. Diet tolerating DC carballo Advised to follow [...] last 7 days Lab Units 06/09/20 0329 06/08/20 1959 06/08/20 1628 SODIUM mmol/L 137 132* 134* POTASSIUM [...] nurse know if she changes her mind. Lisa Barillas RN - 06/09/2020 9:49 AM EST 0745: [...] with discharge needs and insulin. Dietary and breastfeeding educator has already been consulted. 0900: Spoke with Shu Barahona, adaptive physical educator and she is going in to [...] family are not able to come from [place], [place] to visit her due to the [...] for Future Visits: Pt aware to contact Sand Mill Operator as needed, PRN Visit 1-2 times every 7 days or consult Pastoral Care PRN. Rev. Shannon Parekh MDiv. Staff [facility] Contact * Binh Virk MD - 06/08/2020 9:36 AM EST DAILY PROGRESS NOTE Douglas Cordova is a 25 y.o. female patient of No primary care provider on file. with history of DM1 presented with hyperglycemia. Impression and Plan: DKA from [facility], non compliance with her home insulin, [...] Parks RN - 06/07/2020 1:44 PM EST 1345 Patient moaning in pain and complaining of being hot after eating a full liquid lunch. zofran given with lunch. Patient is not a good historian or does not offer much information when asked. Per report from [facility] in [place] stated patient stopped taking her insulin 3 [...] Jin RN - 08/02/2020 12:31 AM EST Endo Tech perfect serve message Internal Medicine to notify primary did elope and leave hospital. Alsonotified patient did leave jewelry in room and will send to security. * Felicity Jin RN - 08/01/2020 10:25 PM EST Endo Tech called Nursing Market Research Executive Pamela to notify patient left unit at 2030 and has not return. Patient did sign policy on patient's remaining of unit form. Also notified patient did state to rfp writer shewas not leaving AMA. Patient's jewelry still present in room. Pamela states to wait till midnight to remove patient off unit. * Felicity Jin RN - 08/01/2020 8:30 PM EST Patient requested to walk off the unit.. Endo Tech notified patient policy on patients remaining on unit. Patient states she is not leaving AMA and does disregard warnings against leaving the unit. Patient did sign policy on patient's remaining on their unit form and witness by rfp writer and place in alexander ent's chart. * Damien Olivarez MD - 08/01/2020 7:[address] [facility] Department of Internal Medicine - Staff Internal Medicine Service ICU PATIENT TRANSFER NOTE Patient: Douglas Sousa Date of : 1995 Acct: [id number] Admit date: 07/29/2020 Code Status:- Full code [...] at goal (HCC) [E10.10] and presented to [facility] with C/O abdominal pain, nausea and vomiting and was found to be in DKA. Patient was started on DKA protocol, on IV fluids and received 1 dose of Rocephin and azithromycin due to elevated white count. Patient was transferred to [facility] for further evaluation and management. In [...] Intake/Output Summary (Last 24 hours) at 08/01/2020 190 Last data filed at 08/01/2020 1240 Gross [...] Date TSH 0.35 07/30/2020 Urinalysis: Recent Labs 07/29/20 1915 BACTERIA NOT REPORTED COLORU YELLOW PHUR 5.0 [...] issues concerning noncompliance, patient might benefit from psychotherapist social worker consult. Depression: History of depression in the past, stopped taking antidepressant by herself. Recommend psych eval. DVT prophylaxis: Lovenox 40 mg. PT/OT/SW: Consulted Discharge planning: order processing manager consulted Damien Olivarez MD Department of Internal Medicine [facility] [place] 08/01/2020, 7:06 PM Associated attestation - Naomy [...] at home, advised to follow-up with her housekeeping department worker/PCP Advised to be compliant with medical recommendations Naomy Morse MD Attending Physician, Internal Medicine Service Internal Medicine Residency Program 08/01/2020, 10:21 PM * Vikki Weber MD - 08/01/2020 11:35 AM EST Critical care team - Resident sign-out to medicine service Date and time: 08/01/2020 11:35 AM Patient's name: Douglas Sousa Patient's account/billing number: [id number] Patient's Date of : 1995 Age: 25 [...] floor. Vikki Weber MD Internal Medicine Resident [facility] 08/01/2020 11:35 AM * Edi Latham MD - 08/01/2020 11:29 AM EST Critical Care Team - Daily Progress Note Date and time: 08/01/2020 11:29 AM Patient's name: Douglas Sousa Patient's account/billing number: [id number] Patient's Date of : 1995 Age: 25 [...] Date 08/01/20 0000 - 08/01/20 2359 Shift [id number] 4555-9015 2115-6464 24 Hour Total INTAKE P.O.(mL/kg/hr) 400(0.8) 500 [...] HCO3 12.9 Lab Results Component Value Date [id number] 14 07/30/2020 FIO2 35.0 07/30/2020 Lactic Acid: [...] No results for input(s): LABIRON, TIBC, FERRITIN, [id number], FOLATE, OCCULTBLD in the last 72 hours. [...] access Vikki Weber MD Internal Medicine Resident [facility] 08/01/2020 11:34 AM Attending Physician Statement [...] this chart was generated using voice recognition [employer] dictation software. Although every effort was made to ensure the accuracy of this automated blood bank credit clerk, some errors in blood bank credit clerk may have occurred. * Edi Latham MD - 07/31/2020 8:37 AM EST Critical Care Team - Daily Progress Note Date and time: 07/31/2020 8:43 AM Patient's name: Douglas Sousa Patient's account/billing number: [id number] Patient's Date of : 1995 Age: 25 [...] Date 07/31/20 0000 - 07/31/20 2359 Shift 0775-3172 2775-2636 6380-5857 24 Hour Total INTAKE I.V.(mL/kg) 1058(18.5) 1062.4(18.6) [...] at 07/30/20 1743 dexmedetomidine 0.5 mcg/kg/hr (07/31/20 031) insulin 4.41 Units/hr (07/31/20 8459) PRN Meds: potassium chloride, 20 mEq, PRN [...] HCO3 12.9 Lab Results Component Value Date DDP3YKK 14 07/30/2020 FIO2 35.0 07/30/2020 Lactic Acid: [...] No results for input(s): LABIRON, TIBC, FERRITIN, NUTALJSQ86, FOLATE, OCCULTBLD in the last 72 hours. [...] M.D. Department of Internal Medicine/ Critical care [facility], [facility]) 07/31/2020, 8:43 AM Attending Physician Statement [...] this chart was generated using voice recognition [employer] dictation software. Although every effort was made to ensure the accuracy of this automated blood bank credit clerk, some errors in blood bank credit clerk may have occurred. * Chela Vazquez MD - 07/30/2020 9:09 AM EST Critical Care Team - Daily Progress Note Date and time: 07/30/2020 9:09 AM Patient's name: Douglas Sousa Patient's account/billing number: [id number] Patient's Date of : 1995 Age: 25 [...] Date 07/30/20 0000 - 07/30/20 2359 Shift [id number] 8955-5702 0347-0562 24 Hour Total INTAKE I.V.(mL/kg) 2655(49.6) 2655(49.6) [...] HCO3 12.9 Lab Results Component Value Date PDW5FOV 14 07/30/2020 FIO2 35.0 07/30/2020 Lactic Acid: [...] PHOS 2.9 07/29/2020 S. Calcium: Recent Labs 07/30/20634 CALCIUM 7.2* S. Ionized Calcium:No results for [...] No results for input(s): LABIRON, TIBC, FERRITIN, [id number], FOLATE, OCCULTBLD in the last 72 hours. [...] M.D. Department of Internal Medicine/ Critical care [facility]) 07/30/2020, 9:09 AM Associated attestation - [...] Diagnosis DKA, type 1, not at goal (HCC) Type I (juvenile type) diabetes mellitus with ketoacidosis, uncontrolled Reason for Referral Specialty Diagnoses / Procedures Referred By Contbriseida t Referred To Contact Procedures Discharge Follow-Up Ronal Logan MD [address] [place] [address], [address] [place] [address] Referral ID Status Reason Start Date Expiration Date V isits Requested Visits Authorized [id number] Pending Review 07/04/2023 07/03/2024 1 1 Specialty Diagnoses / Procedures Referred By Contac t Referred To Contact Diagnoses Diabetic ketoacidosis without coma associated with type 1 diabetes mellitus ([facility]) Procedures Follow-up with primary care provider Ronal Logan MD [address] [place] [address] Referral ID Status Reason Start Date Expiration Date V isits Requested Visits Authorized [id number] Pending Review 07/04/2023 07/03/2024 1 1 Specialty Diagnoses / Procedures Referred By Contac t Referred To Contact Procedures No dressing needed Ronal Logan MD [address] [place] [address], [address] [place] [address] Referral ID Status Reason Start Date Expiration Date V isits Requested Visits Authorized [id number] Pending Review 07/04/2023 07/03/2024 1 1 Specialty Diagnoses / Procedures Referred By Contac t Referred To Contact Procedures Adult diet Ronal Logan MD [address] [place] [address], [address] [place] [address] Referral ID Status Reason Start Date Expiration Date V isits Requested Visits Authorized [id number] Pending Review 07/04/2023 07/03/2024 1 1 Additional Source Comments INFORMATION SOURCE (unrecogn ized section and content) DATE CREATED AUTHOR 07/08/2018 [facility] DATE CREATED AUTHOR AUTHOR'S ORGANIZ ATION 06/14/2020 [facility] DATE CREATED AUTHOR AUTHOR'S ORGANIZ ATION 08/02/2020 [facility] DATE CREATED AUTHOR AUTHOR'S ORGANIZ ATION 09/18/2022 [facility] DATE CREATED AUTHOR AUTHOR'S ORGANIZ ATION 04/02/2023 [facility] DATE CREATED AUTHOR AUTHOR'S ORGANIZ ATION 07/06/2023 [facility] DATE CREATED AUTHOR AUTHOR'S ORGANIZ ATION 02/08/2024 [facility] DATE CREATED AUTHOR AUTHOR'S ORGANIZ ATION 03/07/2024 [facility] DATE CREATED AUTHOR AUTHOR'S ORGANIZ ATION 10/20/2024 [facility] DATE CREATED AUTHOR AUTHOR'S ORGANIZ ATION 02/20/2025 [facility] DATE CREATED AUTHOR AUTHOR'S ORGANIZ ATION 02/28/2025 [facility] Reason for Visit (unrecogniz ed section and content) Status Reason Specialty Diagnoses / Procedures Referre d By Contact Referred To Contact Diagnoses DKA, type 1, not at goal (HCC) DKA Status Reason Specialty Diagnoses / Procedures Referre d By Contact Referred To Contact Diagnoses DKA, type 1, not at goal ([facility]) Stan Bond MD [address] [address] [facility] Reason Comments 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 Pt relates falling up stairs about 2 weeks ago, did have xrays done with [facility] 03/22/24, states 5th metatarsal fx. Pt relates still having pain, and swelling Specialty Diagnoses / Procedures Referred By Contac t Referred To Contact Podiatry Diagnoses Fracture of unspecified metatarsal bone(s), unspecified foot, initial encounter for closed fracture 5th metatarsal fx Procedures IN OFFICE/OUTPATIENT [facility] MDM 60 MINUTES Ammy Ruvalcaba, TAWNY [address] [place] [address] Kendal Sommers, DPM [address] [place] [address] Referral ID Status Reason Start Date Expiration Date V isits Requested Visits Authorized [id number] Closed Specialty Services Required 03/29/2024 09/25/2024 1 1 Reason Comments Diabetes Mellitus Follow-up Reason Comments Diabetes Specialty Diagnoses / Procedures Referred By Contac t Referred To Contact Diagnoses DKA (diabetic ketoacidosis) ([facility]) Tachycardia 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 Came here with High Blood Sugar. States has been off of her pump since this am. Specialty Diagnoses / Procedures Referred By Contac t Referred To Contact Diagnoses Diabetic ketoacidosis without coma associated with type 1 diabetes mellitus ([facility]) Anjelica Gerardo MD [address] [facility] [address] [place] [address] Phone: tel: fax: Referral ID Status Reason Start Date Expiration Date Visits Re quested Visits Authorized [id number] 1 1 Reason Comments Med Refill Reason Comments Diabetes Mellitus Follow-up Reason Onset Date Comments Med Refill 12/30/2024 Reason Comments Initial Visit Reason Comments Initial Visit Patient presents for an Initial visit with provider. TALA 09/19/25 based on Dating U/S on 01/24/25 showing a single IUP. 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 labs complete, Hgb A1C 12.6 and glucose on CMP was 379, a STAT MFM consult was placed and request for pt to see Endocrinology JO. She is Type 1 DM. Pap with GC/CT will be collected today. Binh Virk MD - 06/07/2020 11:16 AM EST H&P Notes (unrecognized sect ion and content) Hospitalist History and Physical Patient Name: Douglas Cordova : 1995 MR #: [id number] Admit Date: Physicians: No primary care provider on file. (Family); System, Provider Not In (Referring) Perpetual Assessment: Douglas Cordova is a 25 y.o. female patient of No primary care provider on file. with history of DM1 presented with hyperglycemia. Impression and Plan: DKA from [facility], non compliance with her home insulin [...] information when asked. Per report from [facility] in [place] stated patient stopped taking her insulin 3 [...] [place] Date of : 1995 Sex: Female Hazardous Substances Engineer f2f with patient. Patient reports she is linked with an housekeeping department worker and a primary care physician. She will speak with them about changing insulin if needed. Hazardous Substances Engineer did speak with patient about ride home, explained she can have ambulette transportation but has to have discharge orders in. Patient denied other needs. Associated Order(s): IP CONSULT TO COURT SUPERVISOR Reviewed lab results: Blood sugar trends: [id number] [...] take care of her. 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 Medications: Levemir 12 units [...] She states she has an appointment in [facility]. 2. Patient verbalizes that she will take [...] type 1. Pt found in DKA from H d/t non-compliance with her home insulin, hypoPO4, [...] 0.9 % Lisa Moore RD, LD Office: [phone] documented in this encounter Plan of Adelaida [...] Goal: Knowledge of Enviroment Outcome: Partially Met [id number] goggles gloves Pt not wearing a mask Problem: Actual or potential alteration in health Goal: Absence of healthcare acquired conditions Outcome: Partially Met Goal: Knowledge of Interdisciplinary Plan of Care Outcome: Partially Met Goal: Knowledge of Enviroment Outcome: Partially Met documented in this encounter Care Teams (unrecognized sec tion and content) Electronics System Mechanic Relationship Specialty Start Date End Date Nirav Traylor MD [address] [place] [address], [address] [place] [address] PCP - General Family Medicine 03/30/24 Electronics System Mechanic Relationship Specialty Start Date End Date Nirav Traylor MD [address] [place] [address], [address] [place] [address] PCP - General Family Medicine 03/30/24 Electronics System Mechanic Relationship Specialty Start Date End Date Nirav Traylor MD [address] [place] [address], [address] [place] [address] PCP - General Family Medicine 03/30/24 Electronics System Mechanic Relationship Specialty Start Date End Date Nirav Traylor MD [address] [place] [address], [address] [place] [address] PCP - General Family Medicine 03/30/24 Electronics System Mechanic Relationship Specialty Start Date End Date Nirav Tryalor MD [address] [place] [address], [address] [place] [address] PCP - General Family Medicine 03/30/24 Arcadio Iglesias MD [address] [place] [address] [facility] - [facility] 03/30/24 Electronics System Mechanic Relationship Specialty Start Date End Date Nirav Traylor MD [address] [place] [address], [address] [place] [address] PCP - General Family [facility] 03/30/24 Arcadio Iglesias MD [address] [place] [phone] [facility] 03/30/24 Electronics System Mechanic Relationship Specialty Start Date End Date Arcadio Iglesias MD [address] [facility] [place] [address] PCP - General Family [facility] 06/10/23 Electronics System Mechanic Relationship Specialty Start Date End Date [facility] [address] [place], [place] PCP - General Family [facility] 05/27/24 Electronics System Mechanic Relationship Specialty Start Date End Date [facility], [facility] [address] [place], [place] PCP - General Family [facility] 05/27/24 Electronics System Mechanic Relationship Specialty Start Date End Date Nirav Traylor MD PCP - [facility] 03/30/24 Arcadio Iglesias MD [address] [place] [id number] [facility] 03/30/24 Electronics System Mechanic Relationship Specialty Start Date End Date Nirav Traylor MD PCP - General Family Medicine 03/30/24 Arcadio Iglesias MD [address] [place] [phone] [facility] 03/30/24 Electronics System Mechanic Relationship Specialty Start Date End Date Nirav Traylor MD PCP - General Family [facility] 03/30/24 Arcadio Iglesias MD [address] [place] [address] [facility] 03/30/24 Electronics System Mechanic Relationship Specialty Start Date End Date Nirav Traylor MD PCP - General Family Medicine 03/30/24 Arcadio Iglesias MD [address] [place] [address] [facility] 03/30/24 Electronics System Mechanic Relationship Specialty Start Date End Date Services, [facility] [address] [place] PCP - General Family Medicine 05/27/24 Electronics System Mechanic Relationship Specialty Start Date End Date Services, [facility] [address] [place] PCP - General Family Medicine 05/27/24 Electronics System Mechanic Relationship Specialty Start Date End Date Services, [facility] [address] [place] PCP - General Family Medicine 05/27/24 Electronics System Mechanic Relationship Specialty [facility] [address] [place] PCP - General [facility] 05/27/24 Electronics System Mechanic Relationship Specialty Start Date [facility] [address] [place] PCP - General [facility] 05/27/24 Electronics System Mechanic Relationship Specialty Start Date End Date [facility] [address] [place] [address] [place] PCP - [facility] 05/27/24 Electronics System Mechanic Relationship Specialty Start Date End [facility] [address] [place] PCP - [facility] 05/27/24 Scheduled Active and Recently Administ ered Medications [...] Comment: bs 149, order placed by PA housekeeping department worker) insulin glargine (LANTUS, SEMGLEE) injection pen 20 [...] Munguia RN)1036 (New Bag - Provider: Félix Hamlin RN)1117 (Stop Bag - Provider: Félix Hamlin [...] 231)1812 (Rate/Dose Change - Provider: Laura Leigh RN)1813 (Rate/Dose Verify - Provider: Laura Leigh RN)1900 (Rate/Dose Change - Provider: Laura Leigh RN)2006 (Rate/Dose Change - Provider: Evelyn Rhodes RN)210 (Rate/Dose Change - Provider: Evelyn Rhodes RN)210 [...] to dextrose-containing formulation, DO NOT change to [id number] IV fluid if blood glucose exceeds 250 [...] infusion. 1950 (New Bag - Provider: Evelyn Rhodes, RN)2150 (Stop Bag - Provider: Evelyn Rhodes, RN) 0359 (See Alternative - Provider: Evelyn Rhodes, RN)0526 (See Alternative - Provider: Evelyn Rhodes RN)0706 (See Alternative - Provider: Attila Munguia RN)0759 (See Alternative - Provider: Félix Hamlin, NEW) magnesium sulfate IVPB 4000 mg/100 mL in [...] Munguia RN)0759 (Stop Bag - Provider: Félix Hmalin RN) potassium chloride (K-TAB,KLOR-CON) CR tablet 20-50 [...] 0 (See Alternative - Provider: Evelyn Rhodes, NEW) 0356 (See Alternative - Provider: Evelyn Rhodes [...] mEq over a minimum of 1 hour. 1743 (See Alternative - Provider: Evelyn Rhodes RN) [...] Shipman, RN)0836 (See Alternative - Provider: Anurag Shipman RN)0929 (See Alternative - Provider: Anurag Shipman RN)1004 (See Alternative - Provider: Anurag Shipman RN)1034 (See Alternative - Provider: Anurag Shipman, RN)1034 (See Alternative - Provider: Anurag Shipman, RN)1104 (See Alternative - Provider: Anurag Shipman, RN)1112 (See Alternative - Provider: Anurag Shipman, RN)1142 (See Alternative - Provider: Anurag Shipman, RN)1153 (See Alternative - Provider: Anurag Shipman, RN)1223 (See Alternative - Provider: Anurag Shipman, RN)1223 (See Alternative - Provider: Anurag Shipman, RN)1253 (See Alternative - Provider: Anurag Shipman, RN)1520 (See Alternative - Provider: Anurag Shipman, RN)1550 (See Alternative - Provider: Mohmendoza Shipman RN)1556 (See Alternative - Provider: Anurag Shipman RN)1626 (See Alternative - Provider: Anurag Shipman RN)1635 (See Alternative - Provider: Anurag Shipman [...] Rhodes RN)0627 (Rate/Dose Verify - Provider: Evelyn Carmelo, RN)0632 (Stop Bag - Provider: Evelyn Rhodes RN)0636 (New Bag - Provider: Evelyn Rhodes RN)0736 (Stop Bag - Provider: Anurag Shipman RN)0829 (New Bag - Provider: Anurag Shipman, RN)0833 (Paused - Provider: Anurag Shipman RN)0836 (Restarted - Provider: Anurag Shipman RN)0929 (Stop Bag - Provider: Anurag Shipman, NEW)1004 (New Bag - Provider: Anurag Shipman RN - Comment: k 3.0, infusing through PICC, MD AWARE)1034 (Stop Bag - Provider: Anurag Shipman RN)1034 (New Bag - Provider: Anruag Shipman RN - Comment: K 3.0, infusing [...] PICC line)1626 (Stop Bag - Provider: Anurag Shipman, RN)1635 (New Bag - Provider: Anurag Shipman [...] Anurag Shipman RN)1954 (Given - Provider: Evelyn Rhodes, RN) 1242 (Given - Provider: Attila Munguia [...] Anurag Shipman RN)0824 (Paused - Provider: Anurag Shipman RN)0824 (Paused - Provider: Anurag Shipman, RN)0827 [...] Shipman RN)2200 (See Alternative - Provider: Evelyn Rhodes RN) sodium phosphate 20 mmol in sodium [...] complete. 1154 (See Alternative - Provider: Anurag Shipman, NEW)1546 (See Alternative - Provider: Anurag Shipman, RN)1549 (See Alternative - Provider: Anurag Shipman RN)1550 (See Alternative - Provider: Anurag Shipman RN)1553 (See Alternative - Provider: Anurag Shipman RN)1554 (See Alternative - Provider: Anurag Shipman RN)2200 (See Alternative - Provider: Evelyn Rhodes RN) Linked Groups Order Group 1: Consult [...] Give with a full glass of water. Scheduled Medication Order 05/28/2024 05/29/2024 05/30/2024 ciprofloxacin (CIPRO) IVPB 400 mg/200 mL in dextrose 5% (2 mg/mL premix) 400 mg, intravenous, at 200 mL/hr, Administer over 60 Minutes, Every 24 hours, First dose on 05/29/24 at 1600, Protect from light; May alter blood glucose or insulin requirements., Specific Use Criteria: UTI (with multiple drug allergies), Fluoroquinolones contain FDA Black Box warnings. Due to safety concerns, avoid use in acute bacterial sinusitis, acute bacterial exacerbation of chronic bronchitis, or acute uncomplicated cystitis if possible. Use alternative treatment if available. I acknowledge the Black Box warnings of fluoroquinolones. 1628 (New Bag - Provider: Vijaya Disla RN)1728 (Stop Bag - Provider: Sofi Arcos RN) 1600 (Due) heparin (porcine) injection 5,000 Units 5,000 Units, subcutaneous, Every 8 hours scheduled, First dose on Fri05/28/24 at 0600, Scheduling/ADT, Notify prescriber if INR greater than 1.9, hemoglobin less than 10 mg/dL, aPTT greater than 40 seconds, and/or platelet count less than 100,000/mm Look-alike/sound-alike medication - verify indication for use. Observe for bleeding. 0731 (Given - Provider: Zenaida Moreno RN)1545 (Given - Provider: Magnolia Wiseman, NEW) 0017 (Given - Provider: Justin Newby RN - Comment: Pt care prioritized.)0736 (Given - Provider: Vijaya Disla RN)1600 (Not Given - Provider: Vijaya Disla RN - Reason: Patient/family refused) 0009 (Given - Provider: Sofi Arcos RN)0843 (Given - Provider: Angelita Llamas RN)1600 (Due - Provider: Nelsy Reid [facility]) insulin glargine (LANTUS, SEMGLEE) injection pen 15 Units (CANCELED) 15 Units, subcutaneous, 2 times daily, First dose on 05/29/24 at 1200, Look-alike/sound-alike medication - verify indication for use. Prime with 2 units of insulin prior to administration. Basal (long acting) insulin for subcutaneous administration only. Do not mix with any other insulin. Pre-filled pens stable 28 days at room temperature. 1200 (Hold - Provider: Vijaya Disla RN - Reason: Contraindicated - Comment: glucose 88)1631 (Given - Provider: Vijaya Disla RN)2029 (Given - Provider: Sofi Arcos RN) 0843 (Given - Provider: Angelita Llamas RN) insulin glargine (LANTUS, SEMGLEE) injection pen 20 Units 20 Units, subcutaneous, 2 times daily, First dose (after last modification) on 05/30/24 at 2100, Look-alike/sound-alike medication - verify indication for use. Prime with 2 units of insulin prior to administration. Basal (long acting) insulin for subcutaneous administration only. Do not mix with any other insulin. Pre-filled pens stable 28 days at room temperature. 2100 (Due) insulin lispro (HumaLOG) injection 2-10 Units 2-10 Units, subcutaneous, 3 times daily with meals, First dose on 05/29/24 at 1845, Daytime hyperglycemia dosing. For blood glucose 151-200 mg/dL, give 2 units. For blood glucose 201-250 mg/dL, give 4 units. For blood glucose 251-300 mg/dL, give 6 units. For blood glucose 301-350 mg/dL, give 8 units. For blood glucose 351-400 mg/dL, give 10 units. Give even if NPO or meals skipped. Do NOT give more often then every 4 hours when NPO. Notify prescriber if blood glucose greater than 400 mg/dL. Look-alike/sound-alike medication - verify indication for use. Prime with 2 units of insulin prior to administration. Prandial/supplemental Insulin. Pre-filled pens stable 28 days at room temperature. Insulin lispro should be administered within 15 minutes before or immediately after a meal. 2029 (Given - Provider: Sofi Arcos RN) 0800 (Not Given - Provider: Angelita Llamas RN - Reason: Order parameters not met - Comment: gluvose 129)1254 (Given - Provider: Angelita Llamas RN)1700 (Due) insulin lispro (HumaLOG) injection 2-8 Units 2-8 Units, subcutaneous, Nightly, First dose on Fri05/29/24 at 2200, Bedtime hyperglycemia dosing. For blood glucose 201-250 mg/dL, give 2 units. For blood glucose 251-300 mg/dL, give 4 units. For blood glucose 301-350 mg/dL, give 6 units. For blood glucose 351-400 mg/dL, give 8 units. Give even if NPO or meals skipped. Do NOT give more often then every 4 hours when NPO. Notify prescriber if blood glucose greater than 400 mg/dL. Look-alike/sound-alike medication - verify indication for use. Prime with 2 units of insulin prior to administration. Prandial/supplemental Insulin. Pre-filled pens stable 28 days at room temperature. Insulin lispro should be administered within 15 minutes before or immediately after a meal. 2150 (Given - Provider: Sofi Arcos RN) 2200 (Due) ondansetron ODT (ZOFRAN ODT) disintegrating tablet 4 mg (COMPLETED) 4 mg, oral, Once, On Fri05/28/24 at 2330, For 1 dose 2335 (Given - Provider: Guillermina Cates RN) pantoprazole (PROTONIX) injection 40 mg 40 mg, intravenous, Every 24 hours scheduled, First dose on Fri05/28/24 at 1000, Look-alike/sound-alike medication - verify indication for use., Indication: Other (THUAN) 1112 (Given - Provider: Magnolia Wiseman RN) 0532 (Given - Provider: Guillermina Cates RN) 0522 (Given - Provider: Sofi Arcos RN) scopolamine (TRANSDERM-SCOP) 1 mg/3 days 1 patch 1 patch, transdermal, Administer over 72 Hours, Every 72 hours, First dose on Fri05/29/24 at 1430, 1.5 mg patch delivers 1 mg scopolamine over 3 days. Patches are applied behind ear. Remove previous patch, before applying new. Remove patch prior to MRI procedure as serious mitchell may occur. A new patch must be reapplied to an alternate site. 1443 (Medication Applied - Provider: Vijaya Disla, NEW) sodium chloride 0.9 % flush 20 mL(Linked Group 1) 20 mL, intravenous, Every 12 hours, First dose on Fri05/28/24 at 2230, PICC line. Administer 10 mL per lumen; 20 mL total (for double lumen flush) 0021 (Given - Provider: Justin Newby, NEW)1030 (Not Given - Provider: Vijaya Disla RN - Reason: IV infusing)2141 (Given - Provider: Sofi Arcos RN) 1256 (Given - Provider: Angelita Llamas, NEW)2230 (Due) sodium chloride 0.9 % flush 3 mL 3 mL, intravenous, Every 12 hours scheduled, First dose on Fri05/27/24 at 2100, Scheduling/ADT 0900 (Not Given - Provider: Magnolia Wiseman RN - Reason: IV infusing)2014 (Given - Provider: Guillermina Cates RN) 1108 (Given - Provider: Vijaya Disla RN)2100 (Not Given - Provider: Sofi Arcos RN - Reason: Other - Comment: Pt does not have peripheral iv) 0849 (Given - Provider: Angelita Llamas RN)2100 (Due) Continuous Medication Order 05/28/2024 05/29/2024 05/30/2024 insulin regular (MYXREDLIN) infusion 100 units/100 mL in sodium chloride 0.9% (1 unit/mL premix) () 0.2-54 Units/hr (0.2-54 mL/hr), intravenous, Continuous, Starting on Fri05/27/24 at 1430, For 2 days, Insulin Infusion Orders: Initiating Infusion: Use the [...] hours if correction scale given for meal. Look-alike/sound-alike medication. Verify indication for use. 0000 (Rate/Dose Verify - Provider: Zenaida Moreno RN)0114 (Rate/Dose Change - Provider: Zenaida Moreno RN)0115 (Rate/Dose Verify - Provider: Zenaida Moreno RN)0215 (Rate/Dose Verify - Provider: Zenaida Moreno RN)0217 (Rate/Dose Verify - Provider: Zenaida Moreno RN)0327 (Rate/Dose Change - Provider: Zenaida Moreno RN)0327 (Stop Bag - Provider: Zenaida Moreno RN)0329 (Stop Bag - Provider: Zenaida Moreno RN)0329 (New Bag - Provider: Zenaida Moreno RN)0329 (Paused - Provider: Zenaida Moreno RN)0343 (Paused - Provider: Zenaida Moreno RN)0518 (Restarted - Provider: Zenaida Moreno RN)0518 (Rate/Dose Verify - Provider: Zenaida Moreno RN)0520 (Rate/Dose Verify - Provider: Zenaida Moreno RN)0623 (Rate/Dose Change - Provider: Zenaida Moreno RN)0624 (Rate/Dose Verify - Provider: Zenaida Moreno RN)0711 (Paused - Provider: Zenaida Moreno RN)0720 (Restarted - Provider: Zenaida Moreno RN)0722 (Rate/Dose Change - Provider: Zenaida Moreno RN)0723 (Rate/Dose Verify - Provider: Zenaida Moreno RN)0724 (Handoff - Provider: Zenaida Moreno RN)0902 (Rate/Dose Change - Provider: Guillermina Cates RN)0904 (Stop Bag - Provider: Guillermina Cates RN)0904 (New Bag - Provider: Magnolia Wiseman RN)1002 (Rate/Dose Change - Provider: Magnolia Wiseman, RN)1003 (Rate/Dose Verify - Provider: Guillemrina Cates RN)1023 (Paused - Provider: Guillermina Cates RN)1027 (Restarted - Provider: Guillermina Cates RN)1049 (Paused - Provider: Guillermina Cates RN)1103 (Restarted - Provider: Guillermina Cates RN)1110 (Rate/Dose Change - Provider: Magnolia Wiseman RN)1112 (Rate/Dose Verify - Provider: Guillermina Cates RN)1129 (Stop Bag - Provider: Guillermina Cates RN)1129 (New Bag - Provider: Magnolia Wiseman RN)1137 (Paused - Provider: Guillermina Cates RN)1142 (Restarted - Provider: Guillermina Cates RN)1148 (Paused - Provider: Guillermina Cates RN)1230 (Rate/Dose Change - Provider: Magnolia Wiseman RN - Comment: fsbs 119 [Action automatically changed])1230 (Rate/Dose Verify - Provider: Guillermina Cates RN)1315 (Paused - Provider: Guillermina Cates RN)1319 (Restarted - Provider: Guillermina Cates RN)1321 (Paused - Provider: Guillermina Cates RN)1324 (Restarted - Provider: Guillermina Cates RN)1325 (Paused - Provider: Guillermina Cates RN)1325 (Paused - Provider: Guillermina Cates RN)1328 (Restarted - Provider: Guillermina Cates RN)1330 (Rate/Dose Verify - Provider: Magnolia Wiseman RN - Comment: fsbs 128)1443 (Rate/Dose Change - Provider: Magnolia Wiseman RN)1444 (Rate/Dose Verify - Provider: Guillermina Cates RN)1540 (Rate/Dose Change - Provider: Magnolia Wiseman RN)1630 (Paused - Provider: Guillermina Cates RN)1637 (Rate/Dose Change - Provider: Guillermina Cates RN)1658 (Paused - Provider: Guillermina Cates RN)1700 (Restarted - Provider: Guillermina Cates RN)1747 (Rate/Dose Change - Provider: Magnolia Wiseman RN)1748 (Rate/Dose Verify - Provider: Guillermina Cates RN)1910 (Rate/Dose Change - Provider: Guillermina Cates RN)1958 (Rate/Dose Verify - Provider: Guillermina Cates RN)2000 (Rate/Dose Change - Provider: Guillermina Cates RN)2000 (New Bag - Provider: Guillermina Cates RN)210 (Stop Bag - Provider: Guillermina Cates RN) 0013 (New Bag - Provider: Guillermina Cates RN)011 (Rate/Dose Change - Provider: Guillermina Cates RN)0113 (Rate/Dose Verify - Provider: Guillermina Cates RN)0222 (Paused - Provider: Guillermina Cates RN)0223 (Paused - Provider: Guillermina Cates RN)0455 (Rate/Dose Change - Provider: Guillermina Cates RN)0458 (Rate/Dose Verify - Provider: Guillermina Cates RN)0609 (Paused - Provider: Guillermina Cates RN)0613 (Restarted - Provider: Guillermina Cates RN)0614 (Paused - Provider: Guillermina Cates RN)0616 (Restarted - Provider: Guillermina Cates RN)0623 (Rate/Dose Change - Provider: Guillermina Cates RN)0624 (Rate/Dose Verify - Provider: Guillermina Cates RN - Comment: [Action automatically changed])0700 (Handoff - Provider: Vijaya Disla RN)0717 (Rate/Dose Verify - Provider: Guillermina Cates RN)0828 (Paused - Provider: Vijaya Disla RN)0832 (Restarted - Provider: Vijaya Disla RN)0854 (Rate/Dose Change - Provider: Vijaya Disla RN)0855 (Rate/Dose Verify - Provider: Vijaya Disla RN)0917 (Paused - Provider: Vijaya Disla RN)0939 (Restarted - Provider: Vijaya Disla RN)1004 (Rate/Dose Verify - Provider: Vijaya Disla RN - Comment: [Action automatically changed])1005 (Rate/Dose Verify - Provider: Chelcie Bugner, RN)1105 (Rate/Dose Change - Provider: Vijaya Disla RN)1107 (Rate/Dose Change - Provider: Vijaya Disla RN)1147 (Paused - Provider: Vijaya Disla RN)1156 (Restarted - Provider: Vijaya Disla RN)1200 (Stop Bag - Provider: Vijaya Disla RN - Comment: glucose 73) sodium chloride 0.9 % infusion 100 mL/hr, intravenous, Continuous, Starting on 05/29/24 at 1600 1458 (New Bag - Provider: Vijaya Disla RN)1600 (Canceled Entry - Provider: Vijaya Disla RN)1628 (Paused - Provider: Angelita Llamas RN)1729 (Restarted - Provider: Angelita Llamas RN)2023 (Paused - Provider: Angelita Llamas RN)2027 (Restarted - Provider: Angelita Llamas RN)2310 (Paused - Provider: Angelita Llamas RN)2346 (Restarted - Provider: Angelita Llamas RN) 0100 (Paused - Provider: Angelita Llamas RN)0114 (Restarted - Provider: Angelita Llamas RN)0229 (Stop Bag - Provider: Angelita Llamas RN)0237 (New Bag - Provider: Sofi Arcos RN)0513 (Paused - Provider: Angelita Llamas RN)0518 (Restarted - Provider: Angelita Llamas RN)0954 (Paused - Provider: Angelita Llamas RN)1000 (Restarted - Provider: Angelita Llamas RN)1123 (Paused - Provider: Angelita Llaams RN)1204 (Restarted - Provider: Angelita Llamas RN)1214 (Paused - Provider: Angelita Llamas RN)1220 (Restarted - Provider: Angelita Llamas RN)1221 (Paused - Provider: Angelita Llamas RN)1223 (Restarted - Provider: Angelita Llamas RN)1224 (Paused - Provider: Angelita Llamas RN)1253 (Restarted - Provider: Angelita Llamas RN)1402 (Paused - Provider: Angelita Llamas RN)1407 (Restarted - Provider: Angelita Llamas RN)1432 (Stop Bag - Provider: Angelita Llamas RN)1520 (New Bag - Provider: Angelita Llamas RN) PRN Medication Order 05/28/2024 05/29/2024 05/30/2024 acetaminophen (TYLENOL) tablet 650 mg 650 mg, oral, Every 4 hours PRN, headaches, temperature greater than 38 C, mild pain - pain scale 1-3, Starting on Ailin 05/27/24 at 1632, Scheduling/ADT, [Warning: Total Acetaminophen not to exceed more than 4 grams (4000 mg) in 24 hours] alum-mag hydroxide-simeth (MAALOX) 200-200-20 mg/5 mL suspension 30 mL 30 mL, oral, 4 times daily after meals and at bedtime as needed, dyspepsia, Starting on Ailin 05/27/24 at 1632, Scheduling/ADT, Look-alike/sound-alike medication - verify indication for use. Sergey covarrubias., Indications: dyspepsia calcium gluconate 3,000 mg in sodium chloride 0.9 % 100 mL IVPB 3,000 mg, intravenous, at 43.3 mL/hr, Administer over 3 Hours, As needed, ionized calcium 3.5 to 3.9 mg/dL, Starting on 05/29/24 at 0756, IV Administration of calcium via a central or deep vein preferred. Avoid administration in small hand veins VESICANT (RED) calcium gluconate 4,000 mg in sodium chloride 0.9 % 250 mL IVPB 4,000 mg, intravenous, at 72.5 mL/hr, Administer over 4 Hours, As needed, ionized calcium 3.4 mg/dL or less, Starting on 05/29/24 at 0756, IV administration of calcium via a central or deep vein is preferred. Avoid administration in small hand veins. VESICANT (RED) calcium gluconate IVPB 2000 mg/100 mL (20 mg/mL premix) 2,000 mg, intravenous, at 50 mL/hr, Administer over 2 Hours, As needed, ionized calcium 4 to 4.3 mg/dL, Starting on 05/29/24 at 0756, IV Administration of calcium via a central or deep vein preferred. Avoid administration in small hand veins VESICANT (RED) dextrose (GLUTOSE) 40 % gel 15 g 15 g, oral, As needed, low blood sugar, blood glucose less than 70 mg/dL, Starting on Ailin 05/27/24 at 1632, If patient conscious and taking PO. If blood glucose is not greater than 70 mg/dL after initial treatment, repeat treatment. dextrose 5 % and sodium chloride 0.9 % with KCl 20 mEq/L infusion () 250 mL/hr, intravenous, Continuous PRN, for blood glucose 250mg/dL or less, Starting on Ailin 05/27/24 at 1632, For 1 day, Once IV fluid is changed to dextrose-containing formulation, DO NOT change to rjy-egdiptxd-cgpewonkmj IV fluid if blood glucose exceeds 250 mg/dL. 0000 (Rate/Dose Verify - Provider: Zenaida Moreno RN)0115 (Rate/Dose Verify - Provider: Zenaida Moreno RN)0127 (Restarted - Provider: Zenaida Moreno RN)0152 (Rate/Dose Verify - Provider: Zenaida Moreno RN)0157 (Rate/Dose Change - Provider: Zenaida Moreno RN)0208 (Stop Bag - Provider: Zenaida Moreno RN)0208 (New Bag - Provider: Zenaida Moreno RN)0208 (Rate/Dose Verify - Provider: Zenaida Moreno RN)0215 (Rate/Dose Verify - Provider: Zenaida Moreno RN)0327 (Paused - Provider: Zenaida Moreno RN)0344 (Paused - Provider: Zenaida Moreno RN)0511 (Restarted - Provider: Zenaida Moreno RN)0511 (Rate/Dose Verify - Provider: Zenaida Moreno RN)0520 (Rate/Dose Verify - Provider: Zenaida Moreno RN)0624 (Rate/Dose Verify - Provider: Zenaida Moreno RN)0723 (Rate/Dose Verify - Provider: Zenaida Moreno RN)0813 (New Bag - Provider: Magnolia Wiseman RN)1329 (New Bag - Provider: Magnolia Wiseman RN)1745 (Stop Bag - Provider: Magnolia Wiseman RN) dextrose 5 % and sodium chloride 0.9 % with KCl 20 mEq/L infusion 250 mL/hr, intravenous, Continuous PRN, for blood glucose 250mg/dL or less, Starting on Fri05/28/24 at 1823, For 3 days, Once IV fluid is changed to dextrose-containing formulation, DO NOT change to [id number]-[id number]-[id number] IV fluid if blood glucose exceeds 250 mg/dL. 1747 (New Bag - Provider: Magnolia Wiseman RN) 0011 (New Bag - Provider: Guillermina Cates RN)0131 (Paused - Provider: Vijaya Disla RN)0135 (Paused - Provider: iVjaya Disla RN)0136 (Restarted - Provider: Vijaya Disla RN)0136 (Rate/Dose Verify - Provider: Vijaya Disla RN)0609 (Paused - Provider: Vijaya Disla RN)0613 (Restarted - Provider: Vijaya Disla RN)0614 (Paused - Provider: Vijaya Disla RN)0616 (Restarted - Provider: Vijaya Disla RN)0626 (Stop Bag - Provider: Vijaya Disla RN)0626 (New Bag - Provider: Guillermina Cates RN)0828 (Paused - Provider: Vijaya Disla RN)0832 (Restarted - Provider: Vijaya Disla RN)0917 (Paused - Provider: Vijaya Disla RN)0939 (Restarted - Provider: Vijaya Disla RN)1005 (Rate/Dose Verify - Provider: Vijaya Disla RN)1100 (Restarted - Provider: Angelita Llamas RN)1148 (Paused - Provider: Angelita Llamas RN)1156 (Restarted - Provider: Angelita Llamas RN)1420 (Stop Bag - Provider: Angelita Llamas RN)1437 (Stop Bag - Provider: Vijaya Disla RN) dextrose 50 % in water (D50W) 50% solution 25 mL 25 mL, intravenous, As needed, low blood sugar, blood glucose less than 70 mg/dL and unconscious or NPO with IV access, Starting on Ailin 05/27/24 at 1632, Push over 1-3 minutes STAT. If conscious and not NPO, immediately follow with meal tray or high protein (7 grams) snack if tray not available. If NPO, initiate 5% dextrose in water at 100 mL/hr and contact prescriber for additional orders. If blood glucose is not greater than 70 mg/dL after initial treatment, repeat treatment. VESICANT (RED) Warning: HYPERTONIC solution. 0232 (Given - Provider: Guillermina Cates RN) glucagon HCL injection 1 mg 1 mg, intramuscular, As needed, low blood sugar, blood glucose less than 70 mg/dL and unconscious or NPO without IV access., Starting on Ailin 05/27/24 at 1632, If conscious and not NPO, immediately follow with meal tray or high protein (7Grams) snack if tray not available. If NPO, initiate IV 5% Dextrose/Water at 100 mL/hr and contact prescriber for additional orders. If blood glucose is not greater than 70 mg/dL after initial treatment, repeat treatment. iohexoL (OMNIPAQUE) 300 mg iodine/mL 100 mL (COMPLETED) 100 mL, intravenous, Once in imaging, contrast, Starting on 05/29/24 at 1139, For 1 dose, VESICANT (RED) 1153 (Given - Provider: Yobani Stewart - Comment: lot [id number], exp 01/22/27) magnesium sulfate IVPB 2000 mg/50 mL in iso-osmotic water (40 mg/mL premix) 2,000 mg, intravenous, at 25 mL/hr, Administer over 120 Minutes, As needed, Magnesium level 1.7 to 1.9 mg/dL, or Ionized Magnesium level 0.45 to 0.5 mmol/L., Starting on 05/29/24 at 0756, Recheck magnesium level 4 hours after infusion complete. With each magnesium result continue the replacement orders as needed. magnesium sulfate IVPB 4000 mg/100 mL in iso-osmotic water (40 mg/mL premix) 4,000 mg, intravenous, at 25 mL/hr, Administer over 240 Minutes, As needed, Magnesium level 1.6 mg/dL or less, or Ionized Magnesium level 0.44 mmol/L or less, Starting on 05/29/24 at 0756, Recheck magnesium level 4 hours after infusion complete. With each magnesium result continue the replacement orders as needed. 0958 (New Bag - Provider: Vijaya Disla RN)0959 (Rate/Dose Verify - Provider: Vijaya Disla RN)1005 (Rate/Dose Verify - Provider: Vijaya Disla, NEW)1148 (Paused - Provider: Angelita Llamas RN)1156 (Restarted - Provider: Angelita Llamas RN)1352 (Stop Bag - Provider: Angelita Llamas RN)1358 (Stop Bag - Provider: Vijaya Disla, NEW) melatonin (CIRCADIN) tablet 4.5 mg 4.5 mg, oral, Nightly PRN, sleep, Starting on 05/30/24 at 0151 ondansetron (PF) (ZOFRAN) injection 4 mg 4 mg, intravenous, Every 6 hours PRN, nausea, vomiting, Starting on Ailin 05/27/24 at 2154, Administer over 2-5 minutes. 0505 (Given - Provider: Zenaida Moreno RN)1127 (Given - Provider: Magnolia Wiseman, NEW)2004 (Given - Provider: Guillermina Cates, NEW) 0532 (Given - Provider: Guillermina Cates, NEW)1111 (Given - Provider: Vijaya Disla, NEW)1702 (Given - Provider: Vijaya Disla, NEW) potassium chloride (KAYCIEL) 20 mEq/15 mL solution 30-40 mEq(Linked Group 2) 30-40 mEq, oral, As needed, Potassium Supplementation, Starting on Ailin 05/27/24 at 1632, Scheduling/ADT, Progress to oral potassium replacement when patient tolerating oral intake. If dose administered, recheck potassium level 4 hours after last dose. For potassium level 3.4 to 3.8 mmol/L and GFR 30 mL/min or greater=30 mEq. For potassium level 3.1 to 3.3 mmol/L and GFR 30 mL/min or greater=40 mEq. For potassium level 3 mmol/L or less and GFR 30 mL/min or greater=50 mEq. Must dilute before use - Mix in 3-8 ounces of water or juice before administration When administering in feeding tube, flush before and after per policy and monitor potassium levels 0735 (See Alternative - Provider: Vijaya Disla RN)0828 (See Alternative - Provider: Vijaya Disla, NEW)0832 (See Alternative - Provider: Vijaya Disla RN)0838 (See Alternative - Provider: Vijaya Disla RN)0841 (See Alternative - Provider: Vijaya Disla RN)0917 (See Alternative - Provider: Vijaya Disla RN)0939 (See Alternative - Provider: Vijaya Disla RN)0954 (See Alternative - Provider: Vijaya Disla RN)0956 (See Alternative - Provider: Vijaya Disla RN)0957 (See Alternative - Provider: Vijaya Disla, NEW)1005 (See Alternative - Provider: Vijaya Disla RN)1103 (See Alternative - Provider: Vijaya Disla RN)1104 (See Alternative - Provider: Vijaya Disla RN)1148 (See Alternative - Provider: Angelita Llamas RN)1156 (See Alternative - Provider: Angelita Llamas RN)1217 (See Alternative - Provider: Angelita Llamas RN)1245 (See Alternative - Provider: Angelita Llamas RN)1248 (See Alternative - Provider: Vijaya Disla RN)1249 (See Alternative - Provider: Vijaya Disla RN)1349 (See Alternative - Provider: Vijaya Disla RN)2140 (See Alternative - Provider: Sofi Arcos RN)2234 (See Alternative - Provider: Angelita Llamas RN)2237 (See Alternative - Provider: Sofi Arcos RN)2240 (See Alternative - Provider: Sofi Arcos RN)2337 (See Alternative - Provider: Sofi Arcos RN) 0007 (See Alternative - Provider: Sofi Arcos RN)0100 (See Alternative - Provider: Angelita Llamas RN)0107 (See Alternative - Provider: Sofi Arcos RN)0407 (See Alternative - Provider: Sofi Arcos RN)0408 (See Alternative - Provider: Angelita Llamas RN)0505 (See Alternative - Provider: Angelita Llamas RN)0506 (See Alternative - Provider: Angelita Llamas RN)0532 (See Alternative - Provider: Sofi Arcos RN)0533 (See Alternative - Provider: Sofi Arcos RN)0628 (See Alternative - Provider: Angelita Llamas RN)0630 (See Alternative - Provider: Sofi Arcos RN)0633 (See Alternative - Provider: Sofi Arcos RN)0730 (See Alternative - Provider: Angelita Llamas RN)0840 (See Alternative - Provider: Angelita Llamas RN)0940 (See Alternative - Provider: Angelita Llamas RN)1441 (See Alternative - Provider: Angelita Llamas RN)1541 (See Alternative - Provider: Angelita Llamas RN)1556 (See Alternative - Provider: Angelita Llamas RN) potassium chloride (KLOR-CON M 10) CR tablet 30-40 mEq(Linked Group 2) 30-40 mEq, oral, As needed, Potassium Supplementation, Starting on Ailin 05/27/24 at 1632, Scheduling/ADT, Progress to oral potassium replacement when patient tolerating oral intake. If dose administered, recheck potassium level 4 hours after last dose. For potassium level 3.4 to 3.8 mmol/L and GFR 30 mL/min or greater=30 mEq. For potassium level 3.1 to 3.3 mmol/L and GFR 30 mL/min or greater=40 mEq. For potassium level 3 mmol/L or less and GFR 30 mL/min or greater=50 mEq. Do not crush or chew. 0735 (See Alternative - Provider: Vijaya Disla RN)0828 (See Alternative - Provider: Vijaya Disla RN)0832 (See Alternative - Provider: Vijaya Disla RN)0838 (See Alternative - Provider: Vijaya Disla RN)0841 (See Alternative - Provider: Vijaya Disla RN)0917 (See Alternative - Provider: Vijaya Disla RN)0939 (See Alternative - Provider: Vijaya Disla RN)0954 (See Alternative - Provider: Vijaya Disla RN)0956 (See Alternative - Provider: Vijaya Disla RN)0957 (See Alternative - Provider: Vijaya Disla RN)1005 (See Alternative - Provider: Vijaya Disla RN)1103 (See Alternative - Provider: Vijaya Disla RN)1104 (See Alternative - Provider: Vijaya Disla RN)1148 (See Alternative - Provider: Angelita Llamas RN)1156 (See Alternative - Provider: Angelita Llamas RN)1217 (See Alternative - Provider: Angelita Llamas RN)1245 (See Alternative - Provider: Angelita Llamas RN)1248 (See Alternative - Provider: Vijaya Disla RN)1249 (See Alternative - Provider: Vijaya Disla RN)1349 (See Alternative - Provider: Vijaya Disla RN)2140 (See Alternative - Provider: Sofi Arcos RN)2234 (See Alternative - Provider: Angelita Llamas RN)2237 (See Alternative - Provider: Sofi Arcos RN)2240 (See Alternative - Provider: Sofi Arcos RN)2337 (See Alternative - Provider: Sofi Arcos RN) 0007 (See Alternative - Provider: Sofi Arcos RN)0100 (See Alternative - Provider: Angelita Llamas RN)0107 (See Alternative - Provider: Sofi Arcos RN)0407 (See Alternative - Provider: Sofi Arcos RN)0408 (See Alternative - Provider: Angelita Llamas RN)0505 (See Alternative - Provider: Angelita Llamas RN)0506 (See Alternative - Provider: Angelita Llamas RN)0532 (See Alternative - Provider: Sofi Arcos RN)0533 (See Alternative - Provider: Sofi Arcos RN)0628 (See Alternative - Provider: Angelita Llamas RN)0630 (See Alternative - Provider: Sofi Arcos RN)0633 (See Alternative - Provider: Sofi Arcos RN)0730 (See Alternative - Provider: Angelita Llamas RN)0840 (See Alternative - Provider: Angelita Llamas RN)0940 (See Alternative - Provider: Angelita Llamas RN)1441 (See Alternative - Provider: Angelita Llamas RN)1541 (See Alternative - Provider: Angelita Llamas RN)1556 (See Alternative - Provider: Angelita Llamas RN) potassium chloride IVPB 10 mEq/100 mL in water (0.1 mEq/mL premix)(Linked Group 2) 10 mEq, intravenous, at 100 mL/hr, Administer over 60 Minutes, As needed, POTASSIUM REPLACEMENT, Starting on Ailin 05/27/24 at 1632, Scheduling/ADT, IV if unable to use oral/enteral with the current dosing strategies Potassium level 3 mmol/L or less administer Potassium Chloride 50 mEq Potassium level 3.1 to 3.3 mmol/L administer Potassium Chloride 40 mEq Potassium level 3.4 to 3.8 mmol/L administer Potassium Chloride 30 mEq Use central line when applicable. Recheck potassium level 1 hour after total IVPB infusion complete, With each potassium result continue the replacement orders as needed VESICANT (YELLOW) Infuse each 10 mEq over a minimum of 1 hour. 0735 (New Bag - Provider: Vijaya Disla RN)0828 (Paused - Provider: Vijaya Disla RN)0832 (Restarted - Provider: Vijaya Disla RN)0838 (Stop Bag - Provider: Vijaya Disla RN)0841 (New Bag - Provider: Vijaya Disla RN)0917 (Paused - Provider: Vijaya Disla RN)0939 (Restarted - Provider: Vijaya Disla RN)0954 (Stop Bag - Provider: Vijaya Disla RN)0956 (Stop Bag - Provider: Vijaya Disla RN)0957 (New Bag - Provider: iVjaya Disla RN)1005 (Rate/Dose Verify - Provider: Vijaya Disla RN)1103 (Stop Bag - Provider: Vijaya Disla RN)1104 (New Bag - Provider: Vijaya Disla RN)1148 (Paused - Provider: Angelita Llamas RN)1156 (Restarted - Provider: Angelita Llamas RN)1217 (KVO - Provider: Angelita Llamas RN)1245 (Rate/Dose Verify - Provider: Angelita Llamas RN)1248 (Stop Bag - Provider: Vijaya Disla RN)1249 (New Bag - Provider: Chelcie Bugner, RN)1349 (Stop Bag - Provider: Vijaya Disla RN)2140 (New Bag - Provider: Sofi Arcos RN)2234 (Stop Bag - Provider: Angelita Llamas RN)2237 (New Bag - Provider: Sofi Arcos RN)2240 (Stop Bag - Provider: Sofi Arcos RN)2337 (Stop Bag - Provider: Sofi Arcos RN) 0007 (New Bag - Provider: Sofi Arcos RN)0100 (Stop Bag - Provider: Angelita Llamas RN)0107 (Stop Bag - Provider: Sofi Arcos RN)0407 (New Bag - Provider: Sofi Arcos RN)0408 (Rate/Dose Verify - Provider: Angelita Llamas RN)0505 (Stop Bag - Provider: Angelita Llamas RN)0506 (Stop Bag - Provider: Angelita Llamas RN)0532 (Stop Bag - Provider: Sofi Arcos RN)0533 (New Bag - Provider: Sofi Arcos RN)0628 (Stop Bag - Provider: Angelita Llamas RN)0630 (New Bag - Provider: Sofi Arcos RN)0633 (Stop Bag - Provider: Sofi Arcos RN)0730 (Stop Bag - Provider: Angelita Llamas RN)0840 (New Bag - Provider: Angelita Llamas RN)0940 (Stop Bag - Provider: Angelita Llamas RN)1441 (New Bag - Provider: Angelita Llamas RN)1541 (Stop Bag - Provider: Angelita Llamas RN)1556 (New Bag - Provider: Angelita Llamas RN)1656 (Due: Stop Bag - Provider: Angelita Llamas RN) prochlorperazine (COMPAZINE) injection 5 mg(Linked Group 3) 5 mg, intravenous, Every 6 hours PRN, nausea, vomiting, if patient unable to tolerate PO, Starting on 05/29/24 at 2214, When administered via IV Push, do not exceed 5 mg per minute 2258 (Given - Provider: Sofi Arcos RN) 0522 (Given - Provider: Sofi Arcos RN) prochlorperazine (COMPAZINE) injection 5 mg(Linked Group 3) 5 mg, intramuscular, Every 8 hours PRN, nausea, vomiting, if patient unable to tolerate PO and does not have IV access, Starting on 05/29/24 at 2214, When administered via IV Push, do not exceed 5 mg per minute 2258 (See Alternative - Provider: Sofi Arcos RN) 0522 (See Alternative - Provider: Sofi Arcos RN) prochlorperazine (COMPAZINE) tablet 5 mg(Linked Group 3) 5 mg, oral, Every 6 hours PRN, nausea, vomiting, Starting on 05/29/24 at 2214 2258 (See Alternative - Provider: Sofi Arcos RN) 0522 (See Alternative - Provider: Sofi Arcos RN) sennosides-docusate sodium (SENOKOT-S) 8.6-50 mg 1 tablet 1 tablet, oral, Every 12 hours PRN, constipation, Starting on Ailin 05/27/24 at 1632, Scheduling/ADT sod phos di, mono-K phos mono (K-PHOS NEUTRAL) 250 mg tablet 2 tablet(Linked Group 4) 2 tablet, oral, As needed, for phosphorus level 2.3 mg/dL or less., Starting on 05/29/24 at 0756, If dose administered, recheck phosphorus level 4 hours after last dose. Look-alike/sound-alike medication - verify indication for use. Give with a full glass of water. 1000 (See Alternative - Provider: Vijaya Disla RN)1005 (See Alternative - Provider: Vijaya Disla RN)1142 (See Alternative - Provider: Angelita Llamas RN)1142 (See Alternative - Provider: Angelita Llamas RN)1201 (See Alternative - Provider: Angelita Llamas RN)1600 (See Alternative - Provider: Vijaya Disla RN) sodium chloride 0.9 % flush 10 mL 10 mL, intravenous, As needed, line care, Starting on 05/29/24 at 1139 1153 (Given - Provider: Yobani Stewart) sodium chloride 0.9 % flush 20 mL(Linked Group 1) 20 mL, intravenous, As needed, line care, Starting on 05/28/24 at 2228, PICC line. Administer 10 mL to each lumen before and after each use. Administer 10 mL per lumen; 20 mL total (for double lumen flush) sodium chloride 0.9 % flush 3 mL 3 mL, intravenous, As needed, line care, before and after each intermittent use, Starting on Ailin 05/27/24 at 1632, Scheduling/ADT 0511 (Given - Provider: Zenaida Moreno RN) sodium chloride 0.9 % flush 40 mL(Linked Group 1) 40 mL, intravenous, As needed, line care, Starting on Fri05/28/24 at 2228, PICC line. Administer 20 mL to each lumen after lab draws, blood infusion, and meds known to precipitate. Administer 20 mL per lumen; 40 mL total (for double lumen flush) sodium phosphate 20 mmol in sodium chloride 0.9 % 100 mL IVPB 20 mmol, intravenous, at 26.7 mL/hr, Administer over 4 Hours, As needed, for phosphorus level 2.3 mg/dL or less., Starting on 05/29/24 at 1415, Administer over 4 hours via dedicated line (central line). If administered, recheck phosphorus level 4 hours after infusion complete. Infuse using central line access. sodium phosphate 20 mmol in sodium chloride 0.9 % 250 mL IVPB(Linked Group 4) 20 mmol, intravenous, at 42.8 mL/hr, Administer over 6 Hours, As needed, for phosphorus level 2.3 mg/dL or less, Starting on 05/29/24 at 0756, Administer over 6 hours via dedicated line (peripheral line). If administered, recheck phosphorus level 4 hours after infusion complete. 1000 (New Bag - Provider: Vijaya Disla RN)1005 (Rate/Dose Verify - Provider: Vijaya Disla RN)1142 (Paused - Provider: Angelita Llamas RN)1142 (Paused - Provider: Angelita Llamas RN)1201 (Restarted - Provider: Angelita Llamas RN)1600 (Stop Bag - Provider: Vijaya Disla RN) Linked Groups Order Group 1: Consult PICC nurse - PICC (COMPLETED) Reason for consult? Insert PICC, Indication: Difficult Access, Duration of therapy 14 days or less, Number of Lumen(s): 2 Lumens, Reason for multiple lumens: multiple medications And sodium chloride 0.9 % flush 20 mLJump to med 20 mL, intravenous, Every 12 hours, First dose on Fri05/28/24 at 2230, PICC line. Administer 10 mL per lumen; 20 mL total (for double lumen flush) And sodium chloride 0.9 % flush 20 mLJump to med 20 mL, intravenous, As needed, line care, Starting on Fri05/28/24 at 2228, PICC line. Administer 10 mL to each lumen before and after each use. Administer 10 mL per lumen; 20 mL total (for double lumen flush) And sodium chloride 0.9 % flush 40 mLJump to med 40 mL, intravenous, As needed, line care, Starting on Fri05/28/24 at 2228, PICC line. Administer 20 mL to each lumen after lab draws, blood infusion, and meds known to precipitate. Administer 20 mL per lumen; 40 mL total (for double lumen flush) Group 2: potassium chloride (KLOR-CON M 10) CR tablet 30-40 mEqJump to med 30-40 mEq, oral, As needed, Potassium Supplementation, Starting on Ailin 05/27/24 at 1632, Scheduling/ADT, Progress to oral potassium replacement when patient tolerating oral intake. If dose administered, recheck potassium level 4 hours after last dose. For potassium level 3.4 to 3.8 mmol/L and GFR 30 mL/min or greater=30 mEq. For potassium level 3.1 to 3.3 mmol/L and GFR 30 mL/min or greater=40 mEq. For potassium level 3 mmol/L or less and GFR 30 mL/min or greater=50 mEq. Do not crush or chew. Or potassium chloride (KAYCIEL) 20 mEq/15 mL solution 30-40 mEqJump to med 30-40 mEq, oral, As needed, Potassium Supplementation, Starting on Ailin 05/27/24 at 1632, Scheduling/ADT, Progress to oral potassium replacement when patient tolerating oral intake. If dose administered, recheck potassium level 4 hours after last dose. For potassium level 3.4 to 3.8 mmol/L and GFR 30 mL/min or greater=30 mEq. For potassium level 3.1 to 3.3 mmol/L and GFR 30 mL/min or greater=40 mEq. For potassium level 3 mmol/L or less and GFR 30 mL/min or greater=50 mEq. Must dilute before use - Mix in 3-8 ounces of water or juice before administration When administering in feeding tube, flush before and after per policy and monitor potassium levels Or potassium chloride IVPB 10 mEq/100 mL in water (0.1 mEq/mL premix)Jump to med 10 mEq, intravenous, at 100 mL/hr, Administer over 60 Minutes, As needed, POTASSIUM REPLACEMENT, Starting on Ailin 05/27/24 at 1632, Scheduling/ADT, IV if unable to use oral/enteral with the current dosing strategies Potassium level 3 mmol/L or less administer Potassium Chloride 50 mEq Potassium level 3.1 to 3.3 mmol/L administer Potassium Chloride 40 mEq Potassium level 3.4 to 3.8 mmol/L administer Potassium Chloride 30 mEq Use central line when applicable. Recheck potassium level 1 hour after total IVPB infusion complete, With each potassium result continue the replacement orders as needed VESICANT (YELLOW) Infuse each 10 mEq over a minimum of 1 hour. Group 3: prochlorperazine (COMPAZINE) tablet 5 mgJump to med 5 mg, oral, Every 6 hours PRN, nausea, vomiting, Starting on 05/29/24 at 2214 Or prochlorperazine (COMPAZINE) injection 5 mgJump to med 5 mg, intravenous, Every 6 hours PRN, nausea, vomiting, if patient unable to tolerate PO, Starting on 05/29/24 at 2214, When administered via IV Push, do not exceed 5 mg per minute Or prochlorperazine (COMPAZINE) injection 5 mgJump to med 5 mg, intramuscular, Every 8 hours PRN, nausea, vomiting, if patient unable to tolerate PO and does not have IV access, Starting on 05/29/24 at 2214, When administered via IV Push, do not exceed 5 mg per minute Group 4: sodium phosphate 20 mmol in sodium chloride 0.9 % 250 mL IVPBJump to med 20 mmol, intravenous, at 42.8 mL/hr, Administer over 6 Hours, As needed, for phosphorus level 2.3 mg/dL or less, Starting on 05/29/24 at 0756, Administer over 6 hours via dedicated line (peripheral line). If administered, recheck phosphorus level 4 hours after infusion complete. Or sodium phosphate 20 mmol in sodium chloride 0.9 % 100 mL IVPB (CANCELED) 20 mmol, intravenous, at 26.7 mL/hr, Administer over 4 Hours, As needed, for phosphorus level 2.3 mg/dL or less., Starting on 05/29/24 at 0756, Administer over 4 hours via dedicated line (central line). If administered, recheck phosphorus level 4 hours after infusion complete. Infuse using central line access. Or sod phos di, mono-K phos mono (K-PHOS NEUTRAL) 250 mg tablet 2 tabletJump to med 2 tablet, oral, As needed, for phosphorus level 2.3 mg/dL or less., Starting on 05/29/24 at 0756, If dose administered, recheck phosphorus level 4 hours after last dose. Look-alike/sound-alike medication - verify indication for use. Give with a full glass of water. FOR RECORDS PERTAINING TO PATIENTS WHO ARE [...] BE BASED ON THE PRIMARY CLINICAL RECORDS. [employer] provides no warranty or guarantee of the accuracy or completeness of information in this document.
--- NOTE | 2025-03-01 00:34 | ED.ABDPAIN1 ---
HPI - Abdominal Pain General Chief Complaint: Abdominal Pain Stated Complaint: ABDOMINAL PAIN Time Seen by Provider: 03/01/25 00:20 Source: patient Mode of arrival: ambulance Limitations: no limitations History of Present Illness HPI narrative: The patient is a 29-year-old female who is a G3, P2 who presents to the emergency department with a miscarriage in process via EMS. The patient was identified as having a miscarriage yesterday when she was at [facility] emergency department. No heart tones were appreciated. Patient's obstetrical care is done by Dr. Cross. The patient stated since being home she has continued to have increasing abdominal pain that severe. Pain to 10 out of 10. Unknown what makes it worse. Nothing makes it better. It is cramping-like in sensation. EMS provided the patient with two 50 mcg doses of fentanyl i intramuscularly in transport to the hospital. The patient has a known past medical history of narcotic abuse and has been clean for 2 years. Patient states since the pain started she has had large clots present. She has been passing large clots all day. The patient was post to follow-up with her media sales representative today, March 01. The patient was not given any medications upon discharge from [facility]. No fever or chills. No urine symptoms. Related Data Home Medications ?Medication ?Instructions ?Recorded ?Confirmed dextroamphetamine-amphetamine ER 30 mg PO DAILY 07/14/23 07/14/23 30 mg 24hr capsule,extend release gabapentin 800 mg tablet 800 mg PO TID 07/14/23 07/14/23 insulin lispro 100 unit/mL 100 unit continuous subcutaneous 07/14/23 07/14/23 subcutaneous solution (Humalog infusion Q24H U-100 Insulin) Allergies Allergy/AdvReac Type Severity Reaction Status Date / Time Penicillins Allergy Severe Anaphylaxis Verified 03/01/25 00:04 Review of Systems ROS Status of ROS 10 or more systems reviewed and unremarkable except as noted in history and below [facility] Medical History Substance abuse ?F19.10 - Other psychoactive substance abuse, uncomplicated (ICD-10) Medical non-compliance ?Z91.199 - Patient's noncompliance with other medical treatment and regimen due to unspecified reason (ICD-10) DKA (diabetic ketoacidosis) ?E11.10 - Type 2 diabetes mellitus with ketoacidosis without coma (ICD-10) Diabetes 1.5, managed as type 1 ?E13.9 - Other specified diabetes mellitus without complications (ICD-10) Surgical History Previous section ?Z98.891 - History of uterine scar from previous surgery (ICD-10) Social History Smoking status: Former smoker Highest level of school completed/degree received: high school graduate Little interest or pleasure in doing things: not at all Feeling down, depressed, or hopeless: not at all Exam Narrative Exam Narrative: Prior to examining the patient, I have washed with hospital approved and provided Antiseptic Hand Heavy Forger Helper and have also applied gloves.? Prior to touching the patient, I asked for consent to examine the patient.? General: Alert and oriented, well nourished, pale, severe distress, actively vomiting Eye: PERRL, EOMI, normal conjunctiva. HENT: Normocephalic, normal hearing, moist oral mucosa, no scleral icterus, Neck: Supple, non-tender, no lymphadenopathy. Lungs: Clear to auscultation and percussion, non-labored respiration. No rhonchi, rales, wheezing Heart: Normal rate, regular rhythm, no murmur, gallop or edema. Abdomen: Soft, tender in the pelvic area. No guarding or rebound. No peritoneal signs., non-distended, normal bowel sounds, no masses. Musculoskeletal: Normal range of motion and strength, no tenderness or swelling. Skin: Skin is warm, dry and pink, no rashes or lesions. Neurologic: Awake, alert, and oriented X3, CN II-XII intact. Psychiatric: Cooperative, anxious in appearance. Following the conclusion of the examination, I have washed my hands thoroughly after removing examination gloves. Constitutional Vital Signs, click to edit/add: Last Vital Signs Temp 98.0 F 03/01/25 00:05 Pulse 60 03/01/25 00:05 Resp 18 03/01/25 00:05 BP 150/82 H 03/01/25 00:05 Pulse Ox 98 03/01/25 00:05 O2 Del Method Room Air 03/01/25 00:05 Course Course Hospital Course: Patient is a 29-year-old female presenting to the emergency department in an active miscarriage. Patient's media sales representative is Dr. Cross in [place]. Patient is going to have a CBC, BMP completed. I will do a pelvic exam on the patient. Patient was given fentanyl, fluids, and intravenous Zofran. Reevaluation(s) Reevaluation #1: I went back into the room. Patient is hyperventilating and having pain that is a 10 out of 10. I opted to do a pelvic exam. I see that there is products of conception's at the cervical os. I feel like if I can pull these products of conceptions out it would alleviate the patient's discomfort. Patient provides me verbal consent to do this. I used ring forceps and was able to tease out the products at the os. Patient tolerated the procedure well and once it was done her pain and nausea instantly resolved. Her current pain after the procedure was a 2 out of 10. Nausea has resolved. Patient was tidied up, given a blanket, and something to drink. The products of conception that I pulled out or sac with defined tissue and in total was the size of my fist. Patient did asked to see the products of conception for which she was permitted that opportunity. At this time there is no need for any testing on the specimen so it was discarded in a biohazard area. Time: 01:22 Reevaluation #2: Pain free and no Time: 01:49 Reevaluation #3: Patient continue to feel well and would like to go home. Time: 02:28 Vital Signs Vital signs: Vital Signs Temperature 98.0 F 03/01/25 00:05 Pulse Rate 60 03/01/25 00:05 Respiratory Rate 18 03/01/25 00:05 Blood Pressure 150/82 H 03/01/25 00:05 Pulse Oximetry 98 03/01/25 00:05 Oxygen Delivery Method Room Air 03/01/25 00:05 Temperature 98.0 F 03/01/25 00:05 Pulse Rate 60 03/01/25 00:05 Respiratory Rate 18 03/01/25 00:05 Blood Pressure 150/82 H 03/01/25 00:05 Pulse Oximetry 98 03/01/25 00:05 Oxygen Delivery Method Room Air 03/01/25 00:05 MDM - Abdominal Pain MDM Narrative Medical decision making narrative: 29-year-old female who is 12 weeks is actively miscarrying. The products of conception were teased from the patient cervical os for which she had relief. Patient was checked on serial times and she continued to improve. Differential Diagnosis Differential diagnosis: Likely abdominal pain and other (Miscarriage, bowel obstruction) Medical Records Attestation: I reviewed the patient's medical records. Medical records narrative: Our community service director arranged for us to get the records for the patient. Her ultrasound revealed a single intrauterine at 9 weeks 1 days with a crown-rump length of 2.6 cm. There is no heart tones visualized. There is significant discrepancy in dates as compared with the January 24, 2025 ultrasound. Findings were consistent with demise. The gestational sac was with normal morphology. Patient's blood type is a positive. Hemoglobin hematocrit were 12.4 and 37.1 respectively. The patient had vaginal bleeding when she presented yesterday. She indicated to the ER physician that she has had spotting with all of her pregnancies. Her discharge instructions were that she should follow-up for a quantitative hCG and follow-up with her INTEGRATION DEVELOPER. At that time she was tearful. Quantitative hCG was 9271. Lab Data Attestation: I reviewed the patient's lab results. Labs: Lab Results 03/01/25 Range/Units 00:25 WBC 13.2 H (4.0-11.0) 10^3/uL RBC 4.48 (4.20-5.40) 10^6/uL Hgb 11.6 L (12.0-16.0) g/dL Hct 35.4 L (36.0-48.0) % MCV 79.0 L (81.0-99.0) fL MCH 25.9 L (26.7-34.0) pg MCHC 32.8 (29.9-35.2) g/dL RDW 13.3 (11.0-15.0) % Plt Count 233 (150-450) 10^3/uL MPV 9.8 (9.5-13.5) fL Neut % (Auto) 79.3 H (43.0-75.0) % Lymph % (Auto) 14.2 L (20.5-60.0) % [place] % (Auto) 4.5 (1.7-12.0) % Eos % (Auto) 1.4 (0.9-7.0) % Baso % (Auto) 0.4 (0.2-2.0) % Neut # (Auto) 10.5 H (1.4-6.5) 10^3/uL Lymph # (Auto) 1.9 (1.2-3.8) 10^3/uL [place] # (Auto) 0.6 (0.3-0.8) 10^3/uL Eos # (Auto) 0.2 (0.0-0.7) 10^3/uL Baso # (Auto) 0.1 (0.0-0.1) 10^3/uL Abs Immat Gran (auto) 0.03 (0.00-0.03) 10^3/uL Imm/Tot Granulo (auto) 0.2 (0.0-0.5) % Sodium 138 (136-145) mmol/L Potassium 3.6 (3.5-5.1) mmol/L Chloride 102 (98-107) mmol/L Carbon Dioxide 24.1 (21.0-32.0) mmol/L Anion Gap 15.5 BUN 13.0 (7.0-18.0) mg/dL Creatinine 0.65 (0.55-1.02) mg/dL Est GFR ( Amer) >60 (>=60 mL/min/1.73m^2) Est GFR (Non-Af Amer) >60 (>=60 mL/min/1.73m^2) BUN/Creatinine Ratio 20.0 Glucose 257 H (74-106) mg/dL Calcium 9.1 (8.5-10.1) mg/dL HCG, Quant 5010 mIU/mL Discharge Plan Discharge Chief Complaint: Abdominal Pain Clinical Impression: Complete miscarriage Patient Disposition: Home, Self-Care Time of Disposition Decision: 02:29 Condition: Good Mode of Transportation: Private Vehicle Prescriptions / Home Meds: No Action dextroamphetamine-amphetamine 30 mg capsule,extended release 24hr 30 mg PO DAILY gabapentin 800 mg tablet 800 mg PO TID insulin lispro [Humalog U-100 Insulin] 100 unit/mL solution 100 unit continuous subcutaneous infusion Q24H Rx Instructions: VIA INSULIN PUMP Print Language: [place] Instructions: Miscarriage (ED) Additional Instructions: Thank you for trusting me with your care. You may still bleed but should be like a period as opposed to big clots like before. You may take Tylenol or Motrin for pain management. You are constipated and a stool softener may help you. Please take time off of work as you need for emotional and physical rest. I have provided a note for you. Referrals: Ammy Hackett, MORTICIAN HELPER [Primary Care Provider] - 1 week
[2025-03-01] MEDS: 0.9 % SODIUM CHLORIDE 1,000 ML 125 ML IV (00:36)
[2025-03-01] MEDS: FENTANYL CITRATE/PF 100 MCG/2 ML VIAL 50 MCG IV (00:36)
[2025-03-01 00:47] LABS: Hematocrit 35.4 % (36.0-48.0); Hemoglobin 11.6 g/dL (12.0-16.0); Immature Granulocytes Abs Auto 0.03 10^3/uL (0.00-0.03); Immature Granulocytes Pct Auto 0.2 % (0.0-0.5); Lymphocytes Absolute Auto 1.9 10^3/uL (1.2-3.8); Mean Corpuscular HGB Conc 32.8 g/dL (29.9-35.2); Mean Corpuscular Hemoglobin 25.9 pg (26.7-34.0); Mean Corpuscular Volume 79.0 fL (81.0-99.0); Platelet Count 233 10^3/uL (150-450); Red Blood Count 4.48 10^6/uL (4.20-5.40); White Blood Count 13.2 10^3/uL (4.0-11.0)
[2025-03-01 01:27] LABS: Anion Gap 15.5; Blood Urea Nitrogen 13.0 mg/dL (7.0-18.0); Calcium 9.1 mg/dL (8.5-10.1); Carbon Dioxide 24.1 mmol/L (21.0-32.0); Chloride 102 mmol/L (98-107); Estimated GFR (African America >60 (>=60 mL/min/1.73m^2); Estimated GFR (Non-African Ame >60 (>=60 mL/min/1.73m^2); Glucose 257 mg/dL (74-106); Potassium 3.6 mmol/L (3.5-5.1); Sodium 138 mmol/L (136-145)
--- NOTE | 2025-03-01 01:33 | PC.NURSE ---
at bedside with Dr Mcdaniel for pelvic, pt tolerated well
--- NOTE | 2025-03-01 01:36 | PC.NURSE ---
pt pain is now 2
[2025-03-01 02:31] VITALS: BP 135/84; PULSE 76; O2SAT 99
== END 2025-03-01 02:42 | disposition home or self-care (01) ==
PROVIDERS: Emergency Provider Emergency Medicine; PCP Nurse Practitioner
DX: O03.9 Complete or unspecified spontaneous abortion without complication (principal); F19.11 Other psychoactive substance abuse, in remission; Z87.891 Personal history of nicotine dependence
CPT/HCPCS: 36415; 80048; 84702; 85025; 96374; 96375; 99284; J2405; J3010

== ENCOUNTER 2025-06-18 16:48 | Emergency (ER) | payer OTHER, SELFPAY ==
--- OUTSIDE RECORDS SUMMARY | 2024-03-23 05:00 | XMS_ITS ---
Author Organization [facility] in [place] Address [address] [place] [address] Care Team Providers Care Directional Survey Drafter Name Role Phone Ricardo Emerson Unavailable [phone] REASON FOR VISIT Psoriasis Encounters Encounter Location Date Provider Diagnosis [facility] [address] [place] [address] 03/23/2024 Ricardo Emerson Plan Of Treatment No Information Progress Notes * Douglas MELODOB:1995 (30 yo F)Acc No.[id number]:03/23/2024 UNLOCKED PROGRESS NOTE Progress Note Patient: Douglas VEGA :?Pasha Emerson (NICK), MDDOB:1995???Age: 28 Y???Sex:FemaleDate:4Phone:[phone]:[address] [place], [place] [id number] Subjective: * Chief Complaints: * 1 . Psoriasis. * Medical History: Objective: * Vitals: Assessment: Plan: * Treatment: * * Electronic signature of Ricardo Emerson MD, [id number] on 06/18/2025 at 05:14 PM EST Sign off status: PendingVisit Status:?CANC (Cancelled) * Provider: Jam Emerson MD (TTC) Date: 0 03/23/2024 Generated for Printing/Faxing/eTransmitting on:?06/18/2025 05:14 PM EST
--- OUTSIDE RECORDS SUMMARY | 2024-07-05 08:30 | XMS_ITS ---
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 Name Role Phone Brandy Alcantara Primary Care Provider [phone] REASON FOR VISIT HTN Social History Sex Assigned At : Social History Observation Description Sex Assigned At Female Encounters Encounter Location Date Provider Diagnosis Main [address] [id number] 07/05/2024 Brandy Alcantara Plan Of Treatment No Information Progress Notes * Douglas MELO NDOB: 3 (30 yo F)Acc No.[id number]:07/05/2024 Medical Note Patient: Douglas Orellana :?Brandy Alcantara MDDOB:1995???Age:29 Y???Sex: FemaleDate:07/05/2024Phone:[phone]:[address] [place], [place] [id number] Subjective: * Chief Complaints: * H TN * Electronic signature of Brandy Alcantara MD on 06/18/2025 at 05:13 PM ESTSign off status: Pending * Provider: Jose Alcantara MD Date: 0 07/05/2024 Generated for Printing/Faxing/eTransmitting on:?06/18/2025 05:13 PM EST
--- OUTSIDE RECORDS SUMMARY | 2024-07-30 06:00 | XMS_ITS ---
Author Organization [facility] vices Address [address] [place], [place] [id number] Care Team Providers Care Head Miller Name Role Phone QuintonBrandy rodríguez Primary Care Provider [phone] Allergies Allergen (clinical drug ingredient) Drug/Non Drug Allergy documented on EMR Reaction Allergy Type Onset Date Status PenicillinanaphylaxisDrug AllergyActiveShellfish (FN)Shellfish-derived Products anaphylaxisDrug AllergyActive REASON FOR VISIT Anxiety & DKA Medications Medication SIG (Take, Route, Frequency, Duration) Notes Start Date End Date Status Insulin Lispro 100 UNIT/ML Solution Injection; D uration: 90 Days ActiveEscitalopram Oxalate 10 MG Tablet1 tablet Orally Once a day; Duration: 60 days06/18/2024ctiveIbuprofen 800 MG Tablet1 tablet with food or milk as needed Orally every 8 hrsNot-Taking/PRNCefuroxime Axetil 500 MG Tablet1 tablet Orally every 12 hrs; Duration: 7 days06/01/2024Not-Taking/PRNAzithromycin 500 MG Tablet 1 tablet Orally daily; Duration: 3 days06/01/2024Not-Taking/PRNOmnipod DASH Pods (Gen 4) - MiscellaneousCHANGE EVERY 72 HOURS; Duration: 30 DaysActiveAlbuterol Sulfate HFA 108 (90 Base) MCG/ACT Aerosol Solution1 puff as needed Inhalation every 4 hrs; Duration: 30 days06/01/2024ctiveOndansetron HCl 4 MG Tablet1 tablet Orally Once a day; Duration: 30 day(s)06/01/2024ctive Social History Sex Assigned At : Social History Observation Description Sex Assigned At Female Encounters Encounter Location Date Provider Diagnosis Main [address] [place] [id number] 07/30/2024 Brandy Alcantara Plan Of Treatment No Information History and Physical Notes * Examination CategorySub-CategoryDetailNotesCategory NotesCQM ExceptionsCurrently taking Aspirin:Aspirin Use:: No Progress Notes * Douglas MELO NDOB: 3 (30 yo F)Acc No.[id number]:07/30/2024 Patient:?Douglas Melo N :?Brandy Alcantara, MDDOB:1995???Age:29 Y???Sex: FemaleDate:07/30/2024Phone:[phone]:[address] [id number] Subjective: * Chief Complaints: * A nxiety & DKA * Medical History: DM type 1 hx of DKA? * Surgical History: section X2 ? Surgical History verified.? * Hospitalization/Major Diagno stic Procedure: see surgical hx ? Hospitalization Verified.? * Family History: F ather: unknown. M other: alive, MS, diagnosed with Hypertension. P aternal Grand Father: unknown. P aternal Grand Mother: unknown. M aternal Grand Father: alive, diagnosed with Hypertension, Heart Disease. M aternal Grand Mother: alive. B rother: unknown. S ister: unknown. F amily History Verified.. * Medications: T akingAlbuterol Sulfate HFA 108 (90 Base) MCG/ACT Aerosol Solution 1 puff as needed Inhalation every 4 hrs Ondansetron HCl 4 MG Tablet 1 tablet Orally Once a day Omnipod DASH Pods (Gen 4) - Miscellaneous CHANGE EVERY 72 HOURS Insulin Lispro 100 UNIT/ML Solution Injection Escitalopram Oxalate 10 MG Tablet 1 tablet Orally Once a day Taking Albuterol Sulfate HFA 108 (90 Base) MCG/ACT Aerosol Solution 1 puff as needed Inhalation every 4 hrs Taking Ondansetron HCl 4 MG Tablet 1 tablet Orally Once a day Taking Omnipod DASH Pods (Gen 4) - Miscellaneous CHANGE EVERY 72 HOURS Taking Insulin Lispro 100 UNIT/ML Solution Injection Taking Escitalopram Oxalate 10 MG Tablet 1 tablet Orally Once a day Not-Taking/PRNCefuroxime Axetil 500 MG Tablet 1 tablet Orally every 12 hrs Azithromycin 500 MG Tablet 1 tablet Orally daily Ibuprofen 800 MG Tablet 1 tablet with food or milk as needed Orally every 8 hrs Not-Taking/PRN Cefuroxime Axetil 500 MG Tablet 1 tablet Orally every 12 hrs Not-Taking/PRN Azithromycin 500 MG Tablet 1 tablet Orally daily Not-Taking/PRN Ibuprofen 800 MG Tablet 1 tablet with food or milk as needed Orally every 8 hrs * Allergies: P enicillin: anaphylaxis - AllergyShellfish-derived Products: anaphylaxis - AllergyyesAllergies Verified. Objective: * Examination: ???CQM Exceptions: ?Currently taking Aspirin:? Aspirin Use:?No??? Billing Information: * Procedure Codes: * Electronic signature of Brandy Alcantara MD on 06/18/2025 at 05:13 PM ESTSign off status: Pending * Provider: Jose Alcantara MD Date: 0 07/30/2024 Generated for Printing/Faxing/eTransmitting on:?06/18/2025 05:13 PM EST
--- OUTSIDE RECORDS SUMMARY | 2025-05-04 10:30 | XMS_ITS ---
Author Organization [facility] vices Address [address] [place], [place] [id number] Care Team Providers Care Autopsy Pathologist Name Role Phone Brandy Alcantara Primary Care Provider REASON FOR VISIT anxiety Social History Sex Assigned At : Social History Observation Description Sex Assigned At Female Encounters Encounter Location Date Provider Diagnosis Main [address] [place], [place] [id number] 05/04/2025 Brandy Alcantara Plan Of Treatment No Information Progress Notes * Douglas MELO NDOB: 3 (30 yo F)Acc No.[id number]:05/04/2025 Medical Note Patient: Douglas Orellana :?Brandy Alcantara MDDOB:1995???Age:29 Y???Sex: FemaleDate:05/04/2025Phone:[phone]:[address] [place], [place] [id number] Subjective: * Chief Complaints: * A nxiety Billing Information: * Procedure Codes: * Electronic signature of Brandy Alcantara MD on 06/18/2025 at 05:14 PM ESTSign off status: Pending * Provider: Jose Alcantara MD Date: 07/04/2024 Generated for Printing/Faxing/eTransmitting on:?06/18/2025 05:14 PM EST
[2025-06-18 16:57] VITALS: BP 124/98; PULSE 81; TEMP 36.8; O2SAT 100; BMI 24.3
--- NOTE | 2025-06-18 17:04 | XR_ITS ---
[facility] [place] [id number] Patient Name: RUDDY CORDOVA MRN: [id number] date: 1995 Sex: F Assigned Patient Location: ER Current Patient Location: ED.MAIN Accession/Order Number: [id number] Exam Date: 06/18/2025 17:13 Report Date: 06/18/2025 17:18 At the request of: FABI FIGUEROA MD Procedure: XR chest 1V Single view chest: CLINICAL HISTORY: cough COMPARISON: 05/27/2024 FINDINGS: The heart is normal in size. The lungs are clear. The pulmonary vasculature is normal. Mediastinum and hilar regions are unremarkable. No pleural effusions are seen. Visualized bones are intact. XR/XR chest 1V IMPRESSION: NO ACUTE PROCESS. Impression dictated by: Ronal Coleman Jr., D.O. 06/18/2025 5:18 PM Dictation Location: [place] [address] Electronically authenticated by: [id number] Y Date: 06/18/2025 17:18
--- NOTE | 2025-06-18 17:04 | ED.GENADUL1 ---
HPI HPI - General Adult General Chief complaint: Upper Respiratory Infection Stated complaint: Flu Symptoms Time Seen by Provider: 06/18/25 16:55 Source: patient Mode of arrival: ambulance Limitations: no limitations History of Present Illness HPI narrative: 30-year-old female presented to the emergency department for a cough. She has had it for 4 days and she has been coughing up some phlegm. No fever or hemoptysis. No vomiting or diarrhea. Related Data Home Medications ?Medication ?Instructions ?Recorded ?Confirmed insulin lispro 100 unit/mL 100 unit continuous subcutaneous 07/14/23 06/18/25 subcutaneous solution (Humalog infusion Q24H U-100 Insulin) Allergies Allergy/AdvReac Type Severity Reaction Status Date / Time Penicillins Allergy Severe Anaphylaxis Verified 06/18/25 16:56 Opioid HPI Opioid Management Most Recent Opioid Data: Last Pain Scale 5 Today, 16:57 Ur Phencyclidine Scrn, (NEGATIVE) Negative 07/13/23, 16:45 Review of Systems ROS Narrative A ten point review of systems is negative except as noted above. PFSH PFSH Medical History Substance abuse ?F19.10 - Other psychoactive substance abuse, uncomplicated (ICD-10) Medical non-compliance ?Z91.199 - Patient's noncompliance with other medical treatment and regimen due to unspecified reason (ICD-10) DKA (diabetic ketoacidosis) ?E11.10 - Type 2 diabetes mellitus with ketoacidosis without coma (ICD-10) Diabetes 1.5, managed as type 1 ?E13.9 - Other specified diabetes mellitus without complications (ICD-10) Surgical History Previous section ?Z98.891 - History of uterine scar from previous surgery (ICD-10) Social History Smoking status: Former smoker Highest level of school completed/degree received: high school graduate Little interest or pleasure in doing things: not at all Feeling down, depressed, or hopeless: not at all Exam Narrative Exam Narrative: Nurses note and vital signs reviewed General:The patient appears well and in no apparent distress.Patient is resting comfortably on cart. Skin:Warm, dry, no pallor noted.There is no rash noted. Head:Normocephalic, atraumatic Eye: Normal conjunctiva, no drainage Ears, Nose, Mouth, and Throat: oral mucosa is moist. Nares patent. Cardiovascular:Regular Rate and Rhythm Respiratory:Patient is in no distress, no accessory muscle use, lungs are clear to auscultation, no wheezing, rales or rhonchi Back:non-tender GI: Soft and nontender Musculoskeletal: The patient has no evidence of calf tenderness, no pitting edema, symmetrical pulses noted bilaterally Neurological:A&O, normal speech Psychiatric:Cooperative Constitutional Vital Signs, click to edit/add: Last Vital Signs Temp 98.2 F 06/18/25 16:57 Pulse 81 06/18/25 16:57 Resp 16 06/18/25 16:57 BP 124/98 H 06/18/25 16:57 Pulse Ox 100 06/18/25 16:57 O2 Del Method Room Air 06/18/25 16:57 Course Vital Signs Vital signs: Vital Signs Temperature 98.2 F 06/18/25 16:57 Pulse Rate 81 06/18/25 16:57 Respiratory Rate 16 06/18/25 16:57 Blood Pressure 124/98 H 06/18/25 16:57 Pulse Oximetry 100 06/18/25 16:57 Oxygen Delivery Method Room Air 06/18/25 16:57 Temperature 98.2 F 06/18/25 16:57 Pulse Rate 81 06/18/25 16:57 Respiratory Rate 16 06/18/25 16:57 Blood Pressure 124/98 H 06/18/25 16:57 Pulse Oximetry 100 06/18/25 16:57 Oxygen Delivery Method Room Air 06/18/25 16:57 Medical Decision Making MDM Narrative Medical decision making narrative: Chest x-ray is negative. She tested positive for COVID. Findings are discussed with the patient. She has had symptoms for 4 days and I do not feel that Paxlovid is indicated. Treatment diagnosis and follow-up were discussed with the patient. Differential Diagnosis Differential Diagnosis: Pneumonia, COVID, influenza, viral URI Lab Data Lab results reviewed: Yes I reviewed the patient's lab results Labs: Lab Results 06/18/25 Range/Units 17:02 Influenza Type A Ag Negative Influenza Type B Ag Negative SARS-CoV-2 Ag (CV2AG) Positive A (NEGATIVE) Imaging Data Chest x-ray: Radiologist's impression: ITS Impressions Chest X-Ray 06/18/25 17:04 IMPRESSION: NO ACUTE PROCESS. Impression dictated by: Ronal Coleman Jr., D.O. 06/18/2025 5:18 PM Dictation Location: [facility] Electronically authenticated by: [id number] Y Date: 06/18/2025 17:18 Discharge Plan Discharge Chief Complaint: Upper Respiratory Infection Clinical Impression: COVID-19 Patient Disposition: Home, Self-Care Time of Disposition Decision: 17:44 Condition: Good Mode of Transportation: Private Vehicle Prescriptions / Home Meds: No Action insulin lispro [Humalog U-100 Insulin] 100 unit/mL solution 100 unit continuous subcutaneous infusion Q24H Rx Instructions: VIA INSULIN PUMP Print Language: Kittitian Instructions: COVID-19 (Coronavirus Disease 2019) (ED), How to Recover from COVID-19 at Home (ED) Referrals: Ammy Hackett, SUPERMARKET MANAGER [Primary Care Provider] - 1 week
--- OUTSIDE RECORDS SUMMARY | 2025-06-18 17:14 | XMS_ITS | Clinical Summary ---
Author Organization [facility] Address [address] [place] [address] Care Team Providers Care Gm Mobile Name Role Phone No, Physician Primary Care Provider Unavailabl e Allergies Active AllergyReactionsCriticalityNoted PgovLwcgxsjoMgqjdytvmmqVbzz74/09/2020 Shellfish QjmkcbuYgwd36/09/2020 Medications MedicationSigDispense QuantityRefillsLast FilledStart DateEnd DateStatus dextroamphetamine-amphetamine (ADDERALL XR) 30 MG 24 hr capsule Take 30 mg by mouth every morning .Active dextroamphetamine-amphetamine (ADDERALL) 20 mg tablet Take 20 mg by mouth daily .Active sertraline (ZOLOFT) 100 MG tablet Take 100 mg by mouth daily .Active albuterol 90 mcg/actuation inhaler Inhale 2 puffs every 4 (four) hours as needed for wheezing .Active ondansetron (ZOFRAN-ODT) 4 MG disintegrating tablet Dissolve 4 mg on top of tongue every 6 (six) hours as needed for nausea .Active insulin glargine (LANTUS) 100 unit/mL injection Inject 20 (twenty) Units under the skin 2 (two) times a day . 12 mL 06/10/2020Active insulin lispro (HumaLOG) 100 unit/mL injection Inject 0 (zero) Units to 30 (thirty) Units under the skin 3 (three) times a day before meals . 27 mL 06/10/2020Active Active Problems ProblemNoted DateDiagnosed DateDKA, type 1, not at goal06/07/2020 Social History Tobacco UseTypesPacks/DayYears UsedDateSmoking Tobacco: Never AssessedPHQ-2 AnswerDate RecordedPHQ-2 Total Zslhd32608/08/2019CommentsUnknownSex and Gender InformationValueDate RecordedSex Assigned at BirthNot on fileLegal Sex Rlwwnn9406/07/2020 3:41 AM ESTGender IdentityNot on fileSexual OrientationNot on file Last Filed Vital Signs Vital SignReadingTime TakenCommentsBlood Zicpafgv230/80108/11/2019 3:59 PM EST Gttwd450006/10/2020 3:59 PM EGDJuzzfwghphg23.7 ??C (98.1 ??F)06/10/2020 3:59 PM ESTRespiratory Lojs215908/11/2019 3:59 PM ESTOxygen Uxzopdlkfq09%06/10/2020 3:59 PM ESTInhaled Oxygen Concentration--Wiphhc49.2 kg (132 lb 11.5 oz)06/10/2020 4:39 AM VRTPhrtin650.7 cm (5' 8 )06/07/2020 12:31 PM ESTBody Mass Index20.18 06/07/2020 12:31 PM EST Plan of Treatment Health MaintenanceDue DateLast DoneCommentsWellness Visit1996Depression Screening/Follow-Up (PHQ-2/9)2005Varicella Vaccines (1 of 2 - 13+ 2-dose series)2006HIV Zkpuisbsr94/05/2008Hepatitis C Jslrmteip15/05/2011Hepatitis B Vaccines (1 of 3 - 19+ 3-dose series)2012Tetanus/Diphtheria/Pertussis (1 - Tdap)2012Pap Smear2014HPV Vaccines (1 - 3-dose SCDM series) 2020Cervical Cancer Fplzdlfra22/05/2023HPV/Kvwvum953COVID-19 Vaccine (1 - 2024- season)2025Influenza Vaccine (#1)2025Zoster Vaccines (1 of 2)2043RSV Vaccines (1 - 1-dose 75+ series)2068HIB VaccinesAged OutNo longer eligible based on patient's age to complete this topic Hepatitis A VaccinesAged OutNo longer eligible based on patient's age to complete this topicIPV VaccinesAged OutNo longer eligible based on patient's age to complete this topicMeningococcal ACWY VaccineAged OutNo longer eligible based on patient's age to complete this topicMeningococcal B VaccineAged OutNo longer eligible based on patient's age to complete this topicPneumococcal VaccineAged OutNo longer eligible based on patient's age to complete this topicRotavirus VaccinesAged OutNo longer eligible based on patient's age to complete this topic Insurance Advance Directives For more information, please contact: [phone] * Full Code (Latest Code Status on File) Date ActivatedDate PqsczuzkmxlTlrsngxy10/9/2020 11:23 AM06/10/2020 7:35 PM * Full Code Date ActivatedDate LuhvvcsudooTtfurrmg38/9/2020 11:21 AM06/07/2020 11:23 AM Care Teams Team MemberRelationshipSpecialtyStart DateEnd Date No, Physician [facility] PCP - Kauqfmx58/9/20
--- OUTSIDE RECORDS SUMMARY | 2025-06-18 17:14 | XMS_ITS | Clinical Summary ---
Author Organization [facility] Healthcare Address [address] [place] [address] Care Team Providers Care Police Officer Crime Prevention Name Role Phone Nirav Traylor MD Primary Care Provider [phone] Arcadio Luna MD Unavailable Allergies Active AllergyReactionsCriticalityNoted DateCommentsPenicillinsSwellingHigh 06/17/2023 Throat swells Shellfish Protein-Containing Drug NwsvrjjdFhpnkypsLqfu29/19/2023 Throat swells Medications MedicationSigDispense QuantityRefillsLast FilledStart DateEnd DateStatus carisoprodol (Soma) 350 MG tablet Take 350 mg by mouth 3 (three) times a day as needed for muscle spasmsActive insulin regular (HumuLIN R,NovoLIN R) 100 UNIT/ML injection Inject under the skin in the morning and at noon and in the evening. Inject with meals.Active ibuprofen 800 MG tablet Indications:FibromyalgiaTake 1 tablet (800 mg) by mouth 3 (three) times a day as needed for mild pain 90 tablet 4Active insulin lispro (HumaLOG) 100 UNIT/ML injection Indications:Type 1 diabetes mellitus with hyperglycemia (HCC)INJECT 10-12-15 UNITS EACH MEAL PLUS SLIDING SCALE #2 (EXPECT 60 UNITS SUBCUTANEOUSLY (UNDER THE SKIN) DAILY) 60 mL 4Active Insulin Lispro 100 UNIT/ML solution Indications:Type 1 diabetes mellitus with hyperglycemia (HCC)Inject 100 Units under the skin continuously WITH INSULIN PUMP 100 mL 5Active Insulin Disposable Pump (Omnipod DASH Pods, Gen 4,) misc Indications:Type 1 diabetes mellitus with hyperglycemia (HCC)REPLACE POD EVERY 72 HOURS 15 each 5Active Active Problems ProblemNoted DateDiagnosed DatePrimary wtgtoxna83/04/2024 Assessment & Plan (10/02/2023 10:46 AM EDT): Not sleeping well and try seroquel. Mixed bipolar I hyppmure20/19/2023 Assessment & Plan (10/02/2023 10:46 AM EDT): Mood controlled with medication and continue. Diabetic gastroparesis associated with type 1 diabetes rcubsnjx12/19/2023 Assessment & Plan (10/02/2023 10:45 AM EDT): Increased symptoms and resume reglan. Vfnddzpvfhcp01/19/2023eneralized anxiety qsgjbodp85/19/2023 Assessment & Plan (10/02/2023 10:46 AM EDT): Mood controlled with medication and continue. Gastroesophageal reflux mdywvqi9706/17/2023Mild intermittent ggsmsf4106/17/2023 Opiate abuse, jwchfoup40/19/2023 Assessment & Plan (10/02/2023 10:46 AM EDT): Prior abuse and avoid addictive medication. Plaque gmjmtkykx54/19/2023 Assessment & Plan (10/02/2023 10:46 AM EDT): Worsening outbreaks and refer to dermatology. Use eucerin PRN. Type 1 diabetes mellitus with ybiqjsqcgubrxt13/19/2023 Assessment & Plan (10/02/2023 10:47 AM EDT): Pain stable and use neurontin. Type 1 diabetes mellitus with grzpjibcsidsn35/19/2023 Assessment & Plan (10/02/2023 10:47 AM EDT): BS improved and follow with endocrinology. ADD (attention deficit disorder) without vxyswyrcumlgp09/18/2023 Assessment & Plan (10/02/2023 10:45 AM EDT): Symptoms worse but avoid stimulants. Try tenex. Resolved Problems ProblemNoted DateDiagnosed DateResolved DateLeft acute serous otitis media /09/2023 Family History Medical HistoryRelationNameCommentsNo Known ProblemsFatherAsthmaMotherDepression MotherHypertensionMotherMultiple sclerosisMotherRelationNameStatusCommentsFather AliveMotherAlive Social History Tobacco UseTypesPacks/DayYears UsedDateSmoking Tobacco: FormerCigarettes0.510 Tobacco Cessation:Counseling Given: Not Answered CommentsUnknownSex and Gender InformationValueDate RecordedSex Assigned at EkwdgMogwdl47/25/2023 2:47 AM ESTLegal FiyWmkbld11/15/2023 8:27 PM EDTGender OddhhzxnCjrmsb51/25/2023 2:47 AM ESTSexual QgifnalelweZdagjngn57/25/2023 2:47 AM EST Last Filed Vital Signs Vital SignReadingTime TakenCommentsBlood Flzuhrzi46/6004 2:14 PM EDT Ieknz0935 2:14 PM YWFRpitqqoimkl70.6 ??C (97.8 ??F)10/02/2023 9:59 AM EDTRespiratory Yxyx995510/19/2024 2:14 PM EDTOxygen Zisdrjixkg05%10/19/2024 2:14 PM EDTInhaled Oxygen Concentration--Xmgsco00.7 kg (169 lb)10/19/2024 2:14 PM EDT Yxvetu518.7 cm (5' 8 )10/19/2024 2:14 PM EDTBody Mass Index25.704 2:14 PM EDT Plan of Treatment Health MaintenanceDue DateLast DoneCommentsDiabetes: Retinopathy Screening 2003Pneumococcal Vaccine: Pediatrics (0 to 5 Years) and At-Risk Patients (6 to 64 Years) (1 of 2 - PCV)2012Diabetes: Urine Protein Screening , 08/05/2018COVID-19 Vaccine (1 - 2024- season)2025 Influenza Vaccine (#1)2025Diabetes: Hemoglobin A1C6001/21/2025, 10/19/2024, 07/12/2024, Additional history existsPap Smear808/, 02/16/2025ervical Cancer Sfyxhmjpo71/20/2030HPV/Kzcibd62 Procedures Procedure NamePriorityDate/TimeAssociated DiagnosisCommentsPOCT GLYCOSYLATED HEMOGLOBIN (HGB A1C)Lajjroh0610/19/2024 2:17 PM EDT Type 1 diabetes mellitus with hyperglycemia (HCC) from Last 3 Months or Most Recently Relevant to Health Maintenance Results * POCT glycosylated hemoglobin (Hb A1C) docked device (10/19/2024 2:17 PM EDT) ComponentValueRef RangeTest MethodAnalysis TimePerformed AtPathologist SignatureHemoglobin A1C13.5Specimen (Source)Anatomical Location / Laterality Collection Method / VolumeCollection TimeReceived TimeBloodVenous blood specimen / Stclzxl0810/19/2024 2:17 PM EDT Narrative Authorizing ProviderResult TypeResult StatusAhsanchez Galloway MDPOINT OF CARE TEST ENTER/EDIT ORDERABLESFinal Result from Last 3 Months or Most Recently Relevant to Health Maintenance Insurance Care Teams Team MemberRelationshipSpecialtyStart DateEnd Date Nirav Traylor MD [address] [place] [address], [place] [address] PCP - GeneralFamily Cwdkiwnj21/1/24 Arcadio Luna MD [address] [place] [address] [facility]03/30/24
--- OUTSIDE RECORDS SUMMARY | 2025-06-18 17:14 | XMS_ITS | Clinical Summary ---
Author Organization [facility] tem Address [id number] [address] [place] [address] Care Team Providers Care Wholesale Parts Salesperson Name Role Phone [facility] Primary Care Provider Allergies Active AllergyReactionsCriticalityNoted DateCommentsPenicillinsAnaphylaxisHigh 01/03/2017Shellfish Containing OesvzcxjEezxrtuzmhhPhae95/07/2017Shellfish DzywqssMzoh53/09/2020 Medications MedicationSigDispense QuantityRefillsLast FilledStart DateEnd DateStatus azu999-vlcw fum-folic () 27 mg iron- 1 mg tablet Indications: care, first trimesterTake 1 tablet by mouth in the morning. 90 tablet 5Active doxylamine (UNISOM) 25 mg tablet Indications:Nausea/vomiting in pregnancyTake 1 tablet (25 mg total) by mouth nightly as needed for sleep or nausea. 30 tablet 5Active pyridoxine, vitamin B6, (B-6) 25 mg tablet Indications:Nausea/vomiting in pregnancyTake 1 tablet (25 mg total) by mouth in the morning and 1 tablet (25 mg total) at noon and 1 tablet(25 mg total) in the evening and 1 tablet (25 mg total) before bedtime. 120 tablet 5Active OMNIPOD DASH PODS, GEN 4, cartridge REPLACE POD EVERY 72 HOURS5Active ondansetron (ZOFRAN) 4 mg tablet Take 1 tablet (4 mg total) by mouth daily as needed for nausea or vomiting. 30 tablet 5Active insulin lispro (HumaLOG) 100 unit/mL injection Inject under the skin.Active methylergonovine (METHERGINE) 0.2 mg tablet Take 1 tablet (200 mcg total) by mouth 3 (three) times a day. 21 tablet 5Active Active Problems ProblemNoted DateDiagnosed DateUrinary tract infection in mother during first trimester of xfqkbsyow78/12/2025 Overview (02/08/2025): Enterococcus UTI 01/21/25, treated with Macrobid Hx of non-ST elevation myocardial infarction (NSTEMI)01/18/2025History of illicit drug use01/18/2025 Overview (01/18/2025): Clean / sober since 2022 Type 1 diabetes mellitus during cqixhxugw84/22/2025 Overview (02/08/2025): Hgb A1C 12.6 01/21/25 Glucose 379 on CMP 01/21/25 Glucosuria (>1000 on 01/21/25) 01/25/25, Dr. Price recommended ER for DKA workup. Patient declined. History of 2 /22/2025Hx of macrosomia in in prior , currently ofhunnxd26/22/2025ipolar 1 disorder, mixed06/17/2023 Zpgxcfzppdgy64/19/2023AD (generalized anxiety disorder)3Plaque lallbieyb43/19/2023ttention deficit disorder (ADD) without hyperactivity 3DKA (diabetic ketoacidoses)07/03/2018 Overview (03/30/2021): 03/30 Regulatory Import Estimated Date of OpwhtecpNkmpklavVta88/23/2026Based on Ultrasound Resolved Problems ProblemNoted DateDiagnosed DateResolved DateNSTEMI (non-ST elevated myocardial infarction)/05/2025Type 1 diabetes mellitus with ketoacidosis /05/2025 Encounters DateTypeDepartmentCare ApvfSibrnftppdb80/22/2025Telephone [facility] [address] [place] [address] Ciera Contreras, SUPERVISOR SALVAGE from Last 3 Months Immunizations No known immunizations Family History Medical HistoryRelationNameCommentsBladder dysfunctionMotherLori clouseDiabetes MotherLori clouseMultiple sclerosisMotherLori clousePsoriasisMotherLori everton RelationNameStatusCommentsMotherLori everton Social History Tobacco UseTypesPacks/DayYears UsedDateSmoking Tobacco: Every DayCigarettes Smokeless Tobacco: Never Tobacco Cessation:Ready to Q uit: Not Asked; Counseling Given: Not Answered Comments:hasn't smoked in 1 week, one cig per day Alcohol UseStandard Drinks/WeekCommentsNo0 (1 standard drink = 0.6 oz pure alcohol)[facility] UtilitiesAnswerDate RecordedIn the past 12 months has the [employer], gas, oil, or water [employer] threatened to shut off services in your home?No 05/27/2024Social Connection and Isolation PanelAnswerDate RecordedIn a typical week, how many times do you talk on the phone with family, friends, or neighbors?More than three times a week06/15/2022How often do you get together with friends or relatives?More than three times a week06/15/2022How often do you attend sabianism or religion services?Never2Do you belong to any clubs or organizations such as sabianism groups, unions, fraternal or athletic groups, or school groups?No06/15/2022How often do you attend meetings of the clubs or organizations you belong to?Never06/15/2022re you , , , , never , or living with a partner?Patient /17/2022 AUDIT-CAnswerDate RecordedQ1: How often do you have a drink containing alcohol? Never06/15/2022Q2: How many drinks containing alcohol do you have on a typical day when you are drinking?Patient does not drink06/15/2022Q3: How often do you have six or more drinks on one occasion?Never06/15/2022verall Financial Resource Strain (CARDIA)AnswerDate RecordedHow hard is it for you to pay for the very basics like food, housing, medical care, and heating?Not hard at all 02/15/2025PHQ-2AnswerDate RecordedTotal Oaahq134Finhuntsman [facility] [place] of Occupational Health - Occupational Stress QuestionnaireAnswerDate RecordedDo you feel stress - tense, restless, nervous, or anxious, or unable to sleep at night because yourmind is troubled all the time - these days?Not at all06/15/2022 Exercise Vital SignAnswerDate RecordedOn average, how many days per week do you engage in moderate to strenuous exercise (like a brisk walk)?0 days06/15/2022n average, how many minutes do you engage in exercise at this level?0 min 06/15/2022RAPARE - TransportationAnswerDate RecordedIn the past 12 months, has lack of transportation kept you from medical appointments or from getting medications?No05/27/2024In the past 12 months, has lack of transportation kept you from meetings, work, or from getting things needed for daily living?No 05/27/2024Housing InstabilityAnswerDate RecordedAre you worried or concerned that in the next two months you may not have stable housing that you own, rent or stay in as a part of a household?No02/15/2025hildcareAnswerDate RecordedDo problems getting early childhood specialist make it difficult for you to work or study?No 02/15/2025EmploymentAnswerDate RecordedDo you need help finding a local career center and/or a training program?No06/15/2022Hunger ScreeningAnswerDate Recorded Within the past 12 months we worried whether our food would run out before we got money to buy more.Never True02/27/2025Within the past 12 months the food we bought just didn't last and we didn't have money to get more.Never True 02/27/2025Purpose - LifeAnswerDate RecordedI have a purpose and direction in my life.Strongly Agree06/15/2022Estimated Date of DeliveryCommentsYes 6Based on UltrasoundSex and Gender InformationValueDate RecordedSex Assigned at BirthNot on fileLegal XxnUeudkv50/06/2015 11:49 AM EDTGender IdentityNot on fileSexual OrientationNot on file Last Filed Vital Signs Vital SignReadingTime TakenCommentsBlood Nujjanuu802/8209/07/2024 2:19 PM EDT Waqqj6883/31/2025 8:45 PM EAZKferczxuzze70.7 ??C (98.1 ??F)02/27/2025 6:45 PM EDTRespiratory Fccu354802/27/2025 8:45 PM EDTOxygen Gnzbkvfwlp23%02/27/2025 8:45 PM EDTInhaled Oxygen Concentration--Ligdpp82.6 kg (184 lb 3.2 oz)03/01/2025 2:19 PM ZVXGxcgys745.7 cm (5' 8 )03/01/2025 2:19 PM EDTBody Mass Index28.01003/01/2025 2:19 PM EDT Plan of Treatment Health MaintenanceDue DateLast DoneCommentsDiabetic Ophthalmology Exam1993 Tobacco Kwfhhcavqf1993Adult BMI Follow Up Plan2011Diabetic Foot Exam 2011DTaP,Tdap and Td Vaccines (1 - Tdap)2012Influenza Vaccine 02/28/2025RSV ( or age 60+ yrs) (1 - Risk 1-dose series) 07/25/2025Depression Kmsmzrosv14/19/653212/dult BMI Utkrwgwqy03/02/2026 03/01/2025Tobacco Esoucprpq13/07/2024Pap Smear/, 02/16/2025 Goals GoalPatient Goal TypeAssociated ProblemsRecent ProgressPatient-Stated?Author home Melissa Nagy LSW Note: Evaluation of progress towards goal: not feeling better yet, encouraged pt to follow Medical Devices Not on file Procedures Procedure NamePriorityDate/TimeAssociated DiagnosisCommentsTHIN PREP PAP TEST Mrkuzss3402/16/2025 12:04 PM EDT Pap smear for cervical cancer screening care, subsequent in first trimester from Last 3 Months or Most Recently Relevant to Health Maintenance Results * Thin Prep Pap Test (02/16/2025 12:04 PM EDT)ComponentValueRef RangeTest Method Analysis TimePerformed AtPathologist SignatureCase ReportGynecologic Cytology Report ? Case: [id number] ? Authorizing Provider: ??Beth Guy, COTTON PULLER-CNM ?? Collected: ? 02/16/2025 1204 ? Ordering Location: ? [facility] ? Received: ?02/16/20255 ? Obstetrics/Gynecology ? First Screen: ?Jose Armando Pace, ? CT(ASCP) ? Specimen: ?Thin Prep Pap, Cervix ? 02/17/2025 2:28 PM [facility] LABORATORYSpecimen Adequacy Satisfactory for evaluation, endocervical/transformation zone component present 02/17/2025 2:28 PM [facility] LABORATORYInterpretationNEGATIVE FOR INTRAEPITHELIAL LESION OR MALIGNANCYNEGATIVE FOR INTRAEPITHELIAL LESION OR MALIGNANCY, UNSATISFACTORY, EPITHELIAL CELL ABNORMALITY, GLANDULAR EPITHELIAL CELL ABNORMALITY. , SQUAMOUS EPITHELIAL CELL ABNORMALITY, NO DIAGNOSIS RENDERED. 02/17/2025 2:28 PM [facility] at 1428 EDTAdditional Information The Pap test is a screening test with an inherent, but low, probability of error. The Pap test is primarily effective for the diagnosis and prevention of squamous cell carcinoma. Regular screening iscritical for prevention. ThinPrep liquid-based slides, which meet the Merchandising Intern criteria for automated screening, have been screened by the ThinPrep Imaging System (as of 03/16/07) along with an additional manual rescreening by a maintenance groundman and, if indicated, by a pathologist.02/17/2025 2:28 PM [facility] LABORATORYClinical MvpdqnadjbeCvoa68/21/2025 2:28 PM [facility] LABORATORYEmbedded Cjunao1102/17/2025 2:28 PM [facility] LABORATORYSpecimen (Source)Anatomical Location / LateralityCollection Method / VolumeCollection TimeReceived TimeThin PrepCervix uteri structure / Unknown 02/16/2025 12:04 PM EDT02/16/2025 12:05 PM EDT Narrative Authorizing ProviderResult TypeResult StatusBeth Guy COTTON PULLER-CNM PATHOLOGY/CYTOLOGY ORDERABLESFinal ResultPerforming OrganizationAddress City/State/ZIP CodePhone Number [facility] [address] [place] [address], from Last 3 Months or Most Recently Relevant to Health Maintenance Insurance Advance Directives * Full Code (Latest Code Status on File) Date ActivatedDate IfcgwifjzqhGuuanypb72/28/2024 4:32 PM05/30/2024 8:34 PM * Full Code Date ActivatedDate InactivatedComments07/02/2023 5:29 PM07/04/2023 4:33 PM * Full Code Date ActivatedDate NccgdrwszcaSuqmfnec93/18/2022 1:04 AM06/18/2022 2:04 PM * Full Code Date ActivatedDate InactivatedComments09/07/2021 7:45 AM09/07/2021 4:29 PM * Full Code Date ActivatedDate AeetkfbkkudPomzffvz26/20/2021 4:08 AM06/20/2021 3:23 PM Care Teams Team MemberRelationshipSpecialtyStart DateEnd Date Services, [facility] [address] [place], [place] PCP - GeneralFaksly Acjvnsqo87/28/24
--- OUTSIDE RECORDS SUMMARY | 2025-06-18 17:14 | XMS_ITS | Clinical Summary ---
Author Organization [facility] Address [address] [place] [address] Care Team Providers Care Aerodynamicist Name Role Phone Unavailable Primary Care Provider Unavailabl e Social History Tobacco UseTypesPacks/DayYears UsedDateSmoking Tobacco: Never AssessedUT Safety & EnvironmentAnswerDate RecordedFear of Current or Ex-PartnerNot on file 08/21/2023Emotionally AbusedNot on file08/21/2023hysically AbusedNot on file 08/21/2023Sexually AbusedNot on file08/21/2023hysically or Sexually AbusedNot on file08/21/2023CommentsUnknownSex and Gender InformationValueDate RecordedSex Assigned at BirthNot on fileLegal ExbNunona92/30/2022 12:11 AM EDT Gender IdentityNot on fileSexual OrientationNot on file Plan of Treatment Health MaintenanceDue DateLast DoneCommentsDepression Nbrzgcmip99/05/2005 Varicella Vaccines (1 of 2 - 13+ 2-dose series)2006Pap Smear2014 Adult Bhbanrj2406/03/2015HPV Vaccines (1 - 3-dose SCDM series)2020Cervical Cancer Nygxkyzlt00/05/2023HPV/Mqzyug6206/03/2023Influenza Vaccine (#1)2025 Zoster Vaccines (1 of 2)2043HIB VaccinesAged OutNo longer eligible based on patient's age to complete this topicIPV VaccinesAged OutNo longer eligible based on patient's age to complete this topicMeningococcal B VaccineAged OutNo longer eligible based on patient's age to complete this topicMeningococcal VaccineAged OutNo longer eligible based on patient's age to complete this topic Pneumococcal Vaccine: Pediatrics (0 to 5 Years) and At-Risk Patients (6 to 64 Years)Aged OutNo longer eligible based on patient's age to complete this topic Rotavirus VaccinesAged OutNo longer eligible based on patient's age to complete this topic Insurance
--- OUTSIDE RECORDS SUMMARY | 2025-06-18 17:14 | XMS_ITS | Patient Health Record ---
Author Organization [facility] [place] Address [address] [place] [address] Support Name Relationship Address Phone Douglas Melo Guarantor Unknown [phone] Reason For Referral No Information Plan Of Treatment No Information
[2025-06-18 17:31] LABS: SARS-CoV-2 Ag POSITIVE (NEGATIVE)
== END 2025-06-18 18:01 | disposition home or self-care (01) ==
PROVIDERS: Emergency Provider Emergency Medicine; PCP Nurse Practitioner
DX: U07.1 COVID-19 (principal); Z87.891 Personal history of nicotine dependence
CPT/HCPCS: 71045; 87804; 87811; 99283; 99284